=== PATIENT | male | born 1965 | race Caucasian/White ===

== ENCOUNTER 2016-08-29 14:05 | Inpatient (IN) | payer OTHER, BC ==
[2016-08-29] VITALS (10 sets, daily range): BP systolic 116–198; BP diastolic 11–110; PULSE 102–152; RESP 20–24; TEMP 97.8–98.4; O2SAT 95–99
[~2016-08-29] VITALS: Ht 182.9 cm; Wt 97.4 kg
[~2016-08-29 14:05] MED LIST: AZIT250T3 PO; CARA1TAB6 PO; DILT360C12 PO; FLUC200T2 PO; IPRASOL NEB; LEVA1.257 NEB; LIPI20TA PO; MONT10TA2 PO; OMEP40CA2 PO; PRED10 PO; PRED20 PO; PROM6.256 PO; PROT40TA PO; SYMB160A INH; WARF-58 PO
[2016-08-29] MEDS ORDERED: RESP: ALBUTEROL 2.5 MG/3 ML NEB (PRN) ONE (14:20)
--- NOTE | 2016-08-29 14:27 | PD ---
HPI . Respiratory distress Chief Complaint: Respiratory Symptoms Time Seen by Provider: 14:21 Travel History International Travel<30 days: No Contact w/Intl Traveler<30days: No History of Present Illness HPI Patient presents in acute respiratory distress. 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 He has a history of severe asthma. He's been seen in the very recent past for same. He is on steroids currently. He has required intubation in the past. PFSH Past Medical History Hx Anticoagulant Therapy: Yes (COUMADIN ) Arthritis: Yes Asthma: Yes Autoimmune Disease: No Anxiety: Yes (XANAX) Depression: Yes (ON PAXIL) Heart Rhythm Problems: Yes (TACHY) Cancer: No Cardiovascular Problems: Yes (PULMONARY EMBOLI ) High Cholesterol: Yes (ON LIPITOR) Chest Pain: Yes (DUE TO PE, PNEUMONIA) Congestive Heart Failure: No COPD: Yes Cerebrovascular Accident: No Diabetes: No Diminished Hearing: No Deep Vein Thrombosis: Yes (DECEMBER 2015: RIGHT LEG WITH PULMONARY EMBOLISM) Endocrine: No Gastrointestinal Disorders: No GERD: Yes Genitourinary: No Hiatal Hernia: No Hypertension: Yes (New HTN since last admit per pt/not documented) Immune Disorder: No Implanted Vascular Access Dvce: No Kidney Stones: No Musculoskeletal: No Neurologic: No Psychiatric: No Reproductive: No Respiratory: Yes (COPD, ASTHMA ) Pneumonia: Yes (NOVEMBER 2015) Renal Failure: No Sleep Apnea: No Thyroid Disease: No Ulcer: No Past Surgical History Abdominal Surgery: No Appendectomy: Yes Cardiac Surgery: No Endocrine Surgery: No Eye Surgery: No Genitourinary Surgery: Yes (apendectomy) Gynecologic Surgery: No Oral Surgery: Yes Pacemaker: No Thoracic Surgery: No Tonsillectomy: Yes Other Surgery: Yes Social History Alcohol Use: No Tobacco Use: No Substance Use: No Allergies-Medications (Allergen,Severity, Reaction): Coded Allergies: Tetracycline (Verified Allergy, Severe, throat swells, 08/29/16) Demerol (Verified Allergy, Intermediate, hallucinations, 08/29/16) Reported Meds & Prescriptions Reported Meds & Active Scripts Active Promethazine-Codeine Liq 6.25-10 Mg/5 Ml Syrp 5 Ml PO Q4H PRN Azithromycin 250 Mg Tab 250 Mg PO DIRECTED Take 2 tabs (500 mg) on day 1 then 1 tab daily x 4 days. Prednisone 20 Mg Tab 40 Mg PO DAILY 4 Days Fluconazole 200 Mg Tab 400 Mg PO DAILY Warfarin 3 Mg Tab 3 Mg PO DAILY Reported Lortab (Hydrocodone-Acetaminophen) 7.5-325 Mg Tab 1 Tab PO TID PRN Prednisone 20 Mg Tab 20 Mg PO DAILY Protonix (Pantoprazole Sodium) 40 Mg Tab 40 Mg PO DAILY Duoneb (Ipratropium-Albuterol Neb) 0.5-2.5 Mg/3 Ml Neb 1 Nebule NEB QID PRN Omeprazole 40 Mg Cap 40 Mg PO DAILY Diltiazem CD 24 HR 360 Mg Capcr 360 Mg PO DAILY Symbicort Inh (Budesonide/Formoterol Fumarate) 160-4.5 Mcg/Act Aero 2 Puff INH Q12HR Singulair (Montelukast Sodium) 10 Mg Tab 10 Mg PO HS Lipitor (Atorvastatin Calcium) 20 Mg Tab 20 Mg PO HS Carafate (Sucralfate) 1 Gm Tab 1 Gm PO TID On empty stomach Levalbuterol Neb (Levalbuterol HCl) 1.25 Mg/3 Ml Neb 1.25 Mg NEB BID PRN Review of Systems Except as stated in HPI: all other systems reviewed are Neg General / Constitutional: No: Fever, Chills HENT: Positive: Congestion Respiratory: Positive: Cough, Shortness of Breath Physical Exam Narrative GENERAL: This patient is in obvious respiratory distress with audible wheezing. SKIN: Warm and dry. HEAD: Atraumatic. Normocephalic. EYES: Pupils equal and round. ENT: No nasal bleeding or discharge. Mucous membranes pink and moist. NECK: Trachea midline. CARDIOVASCULAR: Regular rhythm. Rapid rate at about 170. RESPIRATORY: This patient is in respiratory distress. Diffuse expiratory wheezing. GASTROINTESTINAL: Abdomen soft, non-tender, nondistended. MUSCULOSKELETAL: No obvious deformities. No edema. NEUROLOGICAL: Awake and alert. No obvious cranial nerve deficits. Motor grossly within normal limits. Normal speech. PSYCHIATRIC: Appropriate mood and affect; appropriately anxious. Data Data Last Documented VS Vital Signs Date Time Temp Pulse Resp B/P Pulse Ox O2 Delivery O2 Flow Rate FiO2 08/29/16 17:07 113 20 146/82 97 Nasal Cannula 3 08/29/16 14:30 40 08/29/16 14:08 97.8 Orders Electrocardiogram (08/29/16 ) Albuterol Neb (Albuterol Neb) (08/29/16 14:20) Complete Blood Count With Diff (08/29/16 14:20) Comprehensive Metabolic Panel (08/29/16 14:20) Chest, Single Ap (08/29/16 14:20) Ecg Monitoring (08/29/16 14:20) Iv Access Insert/Monitor (08/29/16 14:20) Oximetry (08/29/16 14:20) Oxygen Administration (08/29/16 14:20) Methylprednisolone So Succ Inj (Solumedr (08/29/16 14:30) Albuterol-Ipratropium Neb (Duoneb Neb) (08/29/16 14:30) Sodium Chloride 0.9% Flush (Ns Flush) (08/29/16 14:30) Magnesium Sulfate 1 Gm Premix (Magnesium (08/29/16 14:30) B-Type Natriuretic Peptide (08/29/16 14:20) Magnesium (Mg) (08/29/16 14:20) Ckmb (Isoenzyme) Profile (08/29/16 14:20) Troponin I (08/29/16 14:20) Prothrombin Time / Inr (Pt) (08/29/16 14:28) D-Dimer (08/29/16 14:28) Lorazepam Inj (Ativan Inj) (08/29/16 14:45) Ct Pulmonary Angiogram (08/29/16 16:09) Iohexol 350 Inj (Omnipaque 350 Inj) (08/29/16 16:54) Labs Laboratory Tests Test 08/29/16 08/29/16 14:25 14:40 White Blood Count 13.2 TH/MM3 Red Blood Count 4.54 MIL/MM3 Hemoglobin 10.0 GM/DL Hematocrit 33.1 % Mean Corpuscular Volume 72.8 FL Mean Corpuscular Hemoglobin 22.1 PG Mean Corpuscular Hemoglobin 30.3 % Concent Red Cell Distribution Width 20.6 % Platelet Count 558 TH/MM3 Mean Platelet Volume 7.2 FL Neutrophils (%) (Auto) 80.2 % Lymphocytes (%) (Auto) 12.2 % Monocytes (%) (Auto) 6.5 % Eosinophils (%) (Auto) 0.6 % Basophils (%) (Auto) 0.5 % Neutrophils # (Auto) 10.6 TH/MM3 Lymphocytes # (Auto) 1.6 TH/MM3 Monocytes # (Auto) 0.9 TH/MM3 Eosinophils # (Auto) 0.1 TH/MM3 Basophils # (Auto) 0.1 TH/MM3 CBC Comment AUTO DIFF Differential Comment AUTO DIFF CONFIRMED Platelet Estimate HIGH Platelet Morphology Comment NORMAL Ovalocytes 2+ Sodium Level 141 MEQ/L Potassium Level 3.9 MEQ/L Chloride Level 104 MEQ/L Carbon Dioxide Level 26.2 MEQ/L Anion Gap 11 MEQ/L Blood Urea Nitrogen 24 MG/DL Creatinine 1.08 MG/DL Estimat Glomerular Filtration 72 ML/MIN Rate Random Glucose 112 MG/DL Calcium Level 9.2 MG/DL Magnesium Level 1.9 MG/DL Total Bilirubin 0.2 MG/DL Aspartate Amino Transf 60 U/L (AST/SGOT) Alanine Aminotransferase 92 U/L (ALT/SGPT) Alkaline Phosphatase 162 U/L Total Creatine Kinase 99 U/L Troponin I LESS THAN 0.02 NG/ML B-Type Natriuretic Peptide 3 PG/ML Total Protein 7.4 GM/DL Albumin 4.2 GM/DL Prothrombin Time 69.8 SEC Prothromb Time International 5.8 RATIO Ratio D-Dimer Quantitative (PE/DVT) 1.25 MG/L FEU MDM Medical Decision Making Medical Screen Exam Complete: Yes Emergency Medical Condition: Yes Differential Diagnosis Differential diagnosis of dyspnea includes but is not limited to congestive heart failure, pneumonia, wheezing, pneumothorax, pulmonary embolism Narrative Course Patient presents in respiratory distress with asthma. He is receiving stacked nebs. He will receive IV steroids. He is being placed on BiPAP. 3:10 PM ABG was obtained that is probably venous. Clinically, the patient is much improved. I will not re-stick him for an ABG at this time. He is on BiPAP and prefers to stay on BiPAP at least temporarily. 3:42 PM Chest x-ray is negative to the radiologist's interpretation. Chest x-ray was independently viewed by me. CBC has a white count of 13.2 (he is on steroids) His H&H is 10 and 33. Cardiac enzymes are negative. BNP is negative. D-dimer is currently pending. Patient's INR is 5.8. D-dimer is 1.25. 5:[address] for PE is negative. Critical Care Narrative Aggregate critical care time was 60 minutes. Time to perform other separately billable procedures was not included in the critical care time. My time did not include minutes spent treating any other patients simultaneously or on activities that did not directly contribute to the patient's treatment. The services I provided to this patient were to treat and/or prevent clinically significant deterioration that could result in: Respiratory failure, respiratory arrest, I provided critical care services requiring my management, as noted below: Chart data review, documentation time, medication orders and management, vital sign assessments/reviewing monitor data, ordering and reviewing lab tests, ordering and interpreting/reviewing x-rays and diagnostic studies, care of the patient and discussion of the patient with the admitting physicians. Diagnosis Primary Impression: Acute asthma exacerbation Qualified Code: J45.51 - Severe persistent asthma with acute exacerbation Additional Impressions: Elevated d-dimer Warfarin-induced coagulopathy Admitting Information Admitting Physician Requests: Admit Condition: Stable Jacquie Uribe MD Aug 29, 2016 14:27
[2016-08-29] MEDS ORDERED: SODIUM CHLORIDE 0.9% FLUSH 5 ML FLUSH IVF PRN (14:30)
[2016-08-29] MEDS ORDERED: MAGNESIUM SULFATE 1 GM PREMIX 100 ML IV ONE (14:30)
[2016-08-29] MEDS ORDERED: methylPREDNISolone SOD SUCC 125 MG/2 ML VIAL IVP ONE (14:30)
[2016-08-29] MEDS ORDERED: LORazepam 2 MG/ML VIAL IV PUSH ONE (14:45)
[2016-08-29 14:50] LABS: AUTOMATED NEUTROPHIL # 10.6 TH/MM3 (1.8-7.7); BASOPHIL # 0.1 TH/MM3 (0-0.2); BASOPHIL % 0.5 % (0.0-2.0); EOSINOPHIL # 0.1 TH/MM3 (0-0.4); EOSINOPHIL % 0.6 % (0.0-4.0); HEMATOCRIT 33.1 % (39.0-51.0); LYMPH % 12.2 % (9.0-44.0); LYMPHOCYTE # 1.6 TH/MM3 (1.0-4.8); MEAN CELL VOLUME 72.8 FL (80.0-100.0); MEAN CORPUSCULAR HEMOGLOBIN 22.1 PG (27.0-34.0); MEAN CORPUSCULAR HGB CONC 30.3 % (32.0-36.0); MONO % 6.5 % (0.0-8.0); NEUT % 80.2 % (16.0-70.0); PLATELET COUNT 558 TH/MM3 (150-450); RED BLOOD COUNT 4.54 MIL/MM3 (4.50-5.90); RED CELL DISTRIBUTION WIDTH 20.6 % (11.6-17.2); WHITE BLOOD COUNT 13.2 TH/MM3 (4.0-11.0)
[2016-08-29 14:54] LABS: HEMO FLAGS AUTO DIFF
--- NOTE | 2016-08-29 14:58 | RADRPT ---
EXAM DATE/TIME: 08/29/2016 14:42 [facility] COMPARISON: CHEST SINGLE AP, August 27, 2016, 15:45. INDICATIONS : Wheezing short of breath. MEDICAL HISTORY : Chronic obstructive pulmonary disease. asthma SURGICAL HISTORY : Hip surgery. ENCOUNTER: Initial ACUITY: 1 day PAIN SCORE: 0/10 LOCATION: Bilateral chest FINDINGS: A single view of the chest demonstrates the lungs to be symmetrically aerated without evidence of mas s, infiltrate or effusion. The cardiomediastinal contours are unremarkable. Osseous structures are intact. CONCLUSION: No acute disease. Elías Hull MD FACR on August 29, 2016 at 14:56 Board Certified Radiologist. This report was verified electronically.
[2016-08-29 15:08] LABS: ANION GAP 11 MEQ/L (5-15); AST (GOT) 60 U/L (15-37); BICARBONATE 26.2 MEQ/L (21.0-32.0); BLOOD UREA NITROGEN 24 MG/DL (7-18); CHLORIDE 104 MEQ/L (98-107); GLOMERULAR FILTRATION RATE 72 ML/MIN (>89); MAGNESIUM 1.9 MG/DL (1.5-2.5); POTASSIUM 3.9 MEQ/L (3.5-5.1); SODIUM (NA) 141 MEQ/L (136-145)
[2016-08-29] MEDS: RESP: ALBUTEROL 2.5 MG/IPRATROPIUM 0.5 MG NEB (SCH) INH ×2 (15:11→15:12)
[2016-08-29 15:14] LABS: ALKALINE PHOSPHATASE 162 U/L (45-117); ALT (GPT) 92 U/L (12-78); CREATINE KINASE 99 U/L (39-308); TOTAL BILIRUBIN ADULT 0.2 MG/DL (0.2-1.0)
[2016-08-29 15:42] LABS: OVALOCYTES 2+ (NORMAL); PLATELET ESTIMATE SMEAR HIGH (NORMAL); PLATELET MORPHOLOGY NORMAL (NORMAL); SCAN/DIFF AUTO DIFF CONFIRMED
[2016-08-29 16:01] LABS: INTERNATIONAL NORMALIZED RATIO 5.8 RATIO; PROTHROMBIN TIME - PATIENT 69.8 SEC (9.8-11.6)
[2016-08-29] MEDS ORDERED: IOHEXOL 350 MG/ML 10 ML VIAL (for RAD DIAG) IV ONE (16:54)
--- NOTE | 2016-08-29 17:05 | RADRPT ---
EXAM DATE/TIME: 08/29/2016 16:50 [facility] COMPARISON: CT PULMONARY ANGIOGRAM, March 26, 2016, 12:33. INDICATIONS : Shortness of breath. History of PE. IV CONTRAST: 89 cc Omnipaque 350 (iohexol) IV RADIATION DOSE: 23.29 CTDIvol (mGy) MEDICAL HISTORY : Deep venous thrombosis. Hypertension. Chronic obstructive pulmonary disease. SURGICAL HISTORY : Appendectomy. Bilateral hip replacement. ENCOUNTER: Initial ACUITY: 1 day PAIN SCALE: 5/10 LOCATION: chest TECHNIQUE: Volumetric scanning of the chest was performed using a pulmonary embolism protocol MIP images were re constructed. Using automated exposure control and adjustment of the mA and/or kV according to patien t size, radiation dose was kept as low as reasonably achievable to obtain optimal diagnostic quality images. FINDINGS: PULMONARY ARTERIES: No filling defects are seen in the pulmonary arteries through the segmental level. LUNGS: Minimal bibasilar atelectasis is noted. There is no consolidation or pneumothorax . No concerning pu lmonary nodule is visualized. PLEURAE: There is no pleural thickening or pleural effusion. MEDIASTINUM: There is good visualization of the great vessels of the middle mediastinum. No evidence of mediastin al or hilar adenopathy/mass. The heart is enlarged. Coronary artery calcifications are noted. MUSCULOSKELETAL: Within normal limits for patient age. MISCELLANEOUS: The visualized upper abdominal organs demonstrate no acute abnormality. CONCLUSION: No evidence of pulmonary embolism. Minimal bibasilar atelectasis. Cardiomegaly and co ronary artery calcifications. Samuel King MD on August 29, 2016 at 17:00 Board Certified Radiologist. This report was verified electronically.
[2016-08-29] MEDS ORDERED: PRED20 PO (17:07)
[2016-08-29] MEDS ORDERED: HYDR-3534 PO (17:11)
[2016-08-29] MEDS ORDERED: cefTRIAXone INJ 2,000 MG in SODIUM CHLORIDE 0.9% INJ 100 ML IV ONE (17:30)
[2016-08-29] MEDS ORDERED: ACETAMINOPHEN 325 MG TAB PO PRN (18:30)
[2016-08-29] MEDS ORDERED: RESP: ALBUTEROL 2.5 MG/3 ML NEB (PRN) NEB ×2 (18:30→19:13)
[2016-08-29] MEDS ORDERED: NALOXONE HCL 0.4 MG/ML AMP IV PRN (18:30)
[2016-08-29] MEDS: SODIUM CHLOR 0.9% 1000 ML INJ 1,000 ML IV SCH (19:41)
[2016-08-29] MEDS: RESP: ALBUTEROL 2.5 MG/IPRATROPIUM 0.5 MG NEB (PRN) NEB (19:47)
[2016-08-29] MEDS ORDERED: ENOXAPARIN SODIUM 40 MG/0.4 ML SYRINGE SQ SCH (20:00)
--- NOTE | 2016-08-29 20:12 | MH ---
cc: MIRI GODOY DATE OF ADMISSION: 08/29/2016 ADMITTING DOCTOR: Dr. Miri Godoy. PRIMARY CARE DOCTOR: Dr. Myron Woodward. REASON FOR ADMISSION: Shortness of breath, respiratory symptoms. HISTORY OF PRESENT ILLNESS: The patient is very pleasant 51-year-old male with a past medical history of DVT and pulmonary embolism in the past and also has a history of severe asthma, anxiety, depression, tachycardia, hyperlipidemia, COPD, gastroesophageal reflux disease (GERD), appendectomy in the past. Also has a history of arthritis. The patient came to the emergency room from the psychology assistant' s office IMPRESSION Tachycardia, hyperlipidemia, COPD and gastroesophageal reflux disease. The history is taken on the patient. The patient's spouse is at the bedside. The patient has on and off shortness of breath. He went to his primary psychology assistant, Dr. Hernandez, today. Dr. Hernandez examined him and told him to come to the emergency room because he was not breathing very well. By the time he reached the emergency room, he was very short of breath and wheezing. He was seen by the emergency room physician and put on a BiPAP machine initially and given some breathing treatments. After some breathing treatments, he was improving and he was taken off the BiPAP and now is on nasal cannula. The patient is still having wheezing but he is breathing a lot better. He has had warmth feeling at home. He had some questionable fever. There was no nausea or vomiting. There was no chest pain. There is no dizziness. He has some headache. The patient denies any diarrhea. There is no constipation. The patient denies any genitourinary symptoms. In the emergency room because of his condition and because he was initially on BiPAP, he was recommended for admission. PAST MEDICAL HISTORY: As described above. MEDICATIONS: Reviewed. Please see the MAR. ALLERGIES: 1. TETRACYCLINE. 2. DEMEROL. REVIEW OF SYSTEMS: As described above in the history of present illness and negative for ten systems. SOCIAL HISTORY: The patient does not smoke, drink or do any drugs. FAMILY HISTORY: Noncontributory. PHYSICAL EXAMINATION: GENERAL: The patient is alert and oriented x3, well-built, well-nourished and lying on the bed with nasal cannula oxygen. VITAL SIGNS: The vitals show the patient is afebrile, pulse is 100 to 100-teens regular. Respiratory rate is 20. At one point when he came in, it was 24 to 26 as per the emergency room physician. Blood pressure 146/82, pulse is 99% now on three liters. Initially he was on a BiPAP and then 40%. HEAD, EYES, EARS, NOSE, THROAT: Head is normocephalic and atraumatic. Eyes - negative conjunctival icterus. Mouth unremarkable. NECK: The neck is supple. Central trachea. CHEST: Some decreased air entry bibasilarly with some scattered expiratory wheezing. CARDIOVASCULAR: S1 and S2 audible. I do not hear any S3 gallop. GASTROINTESTINAL: Abdomen soft and nontender. No organomegaly. Positive bowel sounds. MUSCULOSKELETAL: Extremities have no cyanosis or pedal edema appreciated. CENTRAL NERVOUS SYSTEM: Alert and oriented and moving all his extremities. SKIN: Warm and dry. There is a surgical scar with a Steri-Strip on the right hip area. There is no swelling noted. No discharge noted on the exposed area. PSYCHIATRIC: Appropriate mood and affect. INVESTIGATIONS: White blood cell count 8.2, hemoglobin 10, hematocrit 33.1, platelet count 558,000. BUN 24, creatinine 1.08, random glucose 112, AST 60, ALT 92, alkaline phosphatase 152. Troponin less than 0.02. PT 69.8, INR 5.8, D dimer is 1.25. IMAGING STUDIES: Chest x-ray was done which showed no acute disease. CT angiography was done which shows no evidence of PE. Minimal basilar atelectasis, cardiomegaly and coronary artery calcifications. ASSESSMENT: 1. Acute eczema / COPD exacerbation with respiratory ____ on admission. Hypoxia / respiratory insufficiency / failure on admission. 2. Coumadin toxicity. 3. Recent right hip surgery with infection now on medication, Diflucan. 4. Tachycardia. 5. Hypertension. 6. History of depression and anxiety. 7. History of DVT and PE. 8. Arthritis. 9. History of hyperlipidemia. 10. Gastroesophageal reflux disease (GERD). PLAN: 1. The patient admitted to the floor. 2. Continue oxygen and keep oxygen saturation above 92%. 3. IV steroid 4. IV antibiotic. 5. Pulmonary consult. 6. Breathing treatments p.r.n. basis. 7. Keep on home medications including Cardizem as appropriate. 8. Monitor heart rate. 9. Proton pump inhibitor for GI prophylaxis. 10.For coumadin toxicity we will monitor his PT and INR. 11. Continue Diflucan. 12. Monitor liver function tests as the patient has altered liver function tests. Further recommendations will follow as the patient progresses. Discussed with the patient and spouse. CONDITION: Guarded. Cristianed MD CELIO Godoy/LILIA /7:31 PM /7:49 PM
[2016-08-29] MEDS: BUDESONIDE-FORMOTEROL 160/4.5 MCG INHALER INH SCH (21:00)
[2016-08-29] MEDS: PROMETHAZINE/CODEINE 6.25 MG/10 MG/5 ML CUP PO PRN (21:18)
[2016-08-29] MEDS: SODIUM CHLORIDE 0.9% FLUSH 5 ML FLUSH FLUSH SCH (21:39)
[2016-08-29] MEDS: SODIUM CHLORIDE 0.9% FLUSH 5 ML FLUSH FLUSH PRN (22:54)
[2016-08-29] MEDS: methylPREDNISolone SOD SUCC 40 MG/1 ML VIAL IV PUSH SCH (22:54)
[2016-08-29] MEDS: ATORVASTATIN 20 MG TAB PO SCH (22:55)
[2016-08-29] MEDS: MONTELUKAST SODIUM 10 MG TAB PO SCH (22:56)
[2016-08-29] MEDS: ACETAMINOPHEN/HYDROcodone 325 MG/7.5 MG TAB PO PRN (23:36)
[2016-08-30] VITALS (18 sets, daily range): BP systolic 123–161; BP diastolic 78–98; PULSE 103–136; RESP 15–28; TEMP 96.1–98.4; O2SAT 93–98
[2016-08-30] MEDS: RESP: ALBUTEROL 2.5 MG/IPRATROPIUM 0.5 MG NEB (PRN) NEB (01:53)
[2016-08-30] MEDS ORDERED: LORazepam 2 MG/ML VIAL IV SCH (04:00)
[2016-08-30] MEDS: RESP: LEVALBUTEROL HYDROCHLORIDE 1.25 MG/3 ML NEB (SCH) NEB ×6 (04:09→22:30)
[2016-08-30] MEDS: SODIUM CHLORIDE 0.9% FLUSH 5 ML FLUSH FLUSH PRN (04:13)
[2016-08-30] MEDS: methylPREDNISolone SOD SUCC 40 MG/1 ML VIAL IV PUSH SCH ×3 (04:22→20:15)
[2016-08-30] MEDS: MAGNESIUM SULFATE 1 GM PREMIX 100 ML IV SCH ×2 (04:57→06:02)
[2016-08-30] MEDS ORDERED: AZITHROMYCIN INJ 500 MG in SODIUM CHLOR 0.9% 250 ML INJ 250 ML IV ONE (05:00)
[2016-08-30] MEDS ORDERED: RESP: ALBUTEROL 2.5MG/0.5ML CONTINUOUS NEB 12-PACK NEB SCH (05:00)
--- NOTE | 2016-08-30 05:10 | PD.CONS ---
HPI Service Critical Care Medicine Consult Requested By Dr. Diaz Reason for Consult respiratory distress Primary Care Physician Myron Woodward MD History of Present Illness This is a 51yM with history of asthma, anxiety, GERD, DVT, PE who presented yesterday from pulmonary clinic with worsening dyspnea and found to have an asthma exacerbation. He was initially on BiPAP in the emergency department and was transitioned to VT to the floor. I evaluated the patient as part of a [facility] which was called overnight for respiratory distress. The patient is on BiPAP on my evaluation with spo2 99%. He does endorse significant shortness of breath which he feels is worse than on admission. he denied fevers, chills, chest pain. the remainder of the HPI is difficult to obtain secondary to his respiratory distress and clinical condition. when I had evaluated the patient, he had already received 2 DuoNeb treatments and iv solumedrol. Critical Care Medicine is consulted to evaluate and manage his respiratory distress. Review of Systems ROS Limitations: Clinical Condition (respiratory distress) Past Family Social History Allergies: Coded Allergies: Tetracycline (Verified Allergy, Severe, throat swells, 08/29/16) Demerol (Verified Allergy, Intermediate, hallucinations, 08/29/16) Past Medical History Asthma DVT PE chronic anticoagulation on coumadin therapy Depression anxiety tachycardia hyperlipidemia COPD GERD arthritis. Past Surgical History appendectomy Reported Medications Symbicort Prednisone 40mg daily Coumadin 3mg daily Fluconazole 400mg daily Diltiazem 360mg daily Atorvastatin 20mg daily Singulair 10mg daily Azithromycin 250mg daily Omeprazole daily Active Ordered Medications See MAR Family History reviewed and found to be noncontributory to his acute illness. Social History denies tob, etoh, doa. Physical Exam Vital Signs Vital Signs Date Time Temp Pulse Resp B/P Pulse Ox O2 Delivery O2 Flow Rate FiO2 08/30/16 00:32 19 08/30/16 00:00 96.1 115 22 123/83 98 08/29/16 20:50 98.4 109 20 116/73 2 Nasal Cannula 08/29/16 20:02 98 Nasal Cannula 2.00 08/29/16 19:20 98.4 102 20 130/71 97 Nasal Cannula 2 08/29/16 18:02 110 20 146/82 99 Nasal Cannula 3 08/29/16 17:07 113 20 146/82 97 Nasal Cannula 3 08/29/16 16:29 117 20 143/92 97 Nasal Cannula 3 08/29/16 15:12 126 20 147/96 97 BiPAP 08/29/16 14:30 98 40 08/29/16 14:27 100 BiPAP 08/29/16 14:27 99 BiPAP 08/29/16 14:23 148 22 BiPAP 08/29/16 14:08 97.8 152 24 198/110 95 Physical Exam Gen: middle aged male, in severe respiratory distress. sitting in bed. HEENT: NCAT. perrl. mucous membranes moist Neck: BiPAP in place. trachea midline. no jvd. Chest: significant audible expiratory wheezes which are heard from the doorway. decreased air entry throughout all lung fair but worse on the right. CV: tachycardic rate, regular rhythm. no appreciable murmurs. Abd: obese, soft, nontender, nondistended. no guarding. Extr: no peripheral edema. 2+ distal pulses. Neuro: RASS 0. FC x 4. Laboratory Laboratory Tests Test 08/29/16 08/29/16 14:25 14:40 White Blood Count 13.2 Red Blood Count 4.54 Hemoglobin 10.0 Hematocrit 33.1 Mean Corpuscular Volume 72.8 Mean Corpuscular Hemoglobin 22.1 Mean Corpuscular Hemoglobin 30.3 Concent Red Cell Distribution Width 20.6 Platelet Count 558 Mean Platelet Volume 7.2 Neutrophils (%) (Auto) 80.2 Lymphocytes (%) (Auto) 12.2 Monocytes (%) (Auto) 6.5 Eosinophils (%) (Auto) 0.6 Basophils (%) (Auto) 0.5 Neutrophils # (Auto) 10.6 Lymphocytes # (Auto) 1.6 Monocytes # (Auto) 0.9 Eosinophils # (Auto) 0.1 Basophils # (Auto) 0.1 CBC Comment AUTO DIFF Differential Comment AUTO DIFF CONFIRMED Platelet Estimate HIGH Platelet Morphology Comment NORMAL Ovalocytes 2+ Sodium Level 141 Potassium Level 3.9 Chloride Level 104 Carbon Dioxide Level 26.2 Anion Gap 11 Blood Urea Nitrogen 24 Creatinine 1.08 Estimat Glomerular Filtration 72 Rate Random Glucose 112 Calcium Level 9.2 Magnesium Level 1.9 Total Bilirubin 0.2 Aspartate Amino Transf 60 (AST/SGOT) Alanine Aminotransferase 92 (ALT/SGPT) Alkaline Phosphatase 162 Total Creatine Kinase 99 Troponin I LESS THAN 0.02 B-Type Natriuretic Peptide 3 Total Protein 7.4 Albumin 4.2 Prothrombin Time 69.8 Prothromb Time International 5.8 Ratio D-Dimer Quantitative (PE/DVT) 1.25 Result Diagram: 08/29/16 1425 08/29/16 1425 Assessment and Plan Assessment and Plan Assessment: 51yM with h/o asthma who presents with asthma exacerbation and now acute respiratory distress. This is most likely secondary to his asthma exacerbation. My clinical evaluation is consistent with his worsening pulmonary status and with his severe respiratory distress, I am concerned that he will tire out and he has a history of requiring intubation and mechanical ventilation for asthma exacerbations. We will emergently transfer him to the ICU. He is critically ill. Active Problems: Asthma Exacerbation Acute severe respiratory distress Acute hypoxic and hypercarbic respiratory failure Plan: -- Mg sulfate 2gm iv x 1 -- continuous inhaled albuterol nebulizer treatment -- Continue Rocephin 1gm iv q12h -- continue methylpred 40mg iv q8h. -- Add azithromycin 500mg iv x 1, then 250mg iv q24h x 5 days. -- may need epinephrine infusion if his respiratory status does not improve. -- continue ativan 0.5mg iv as needed for anxiety -- continue BiPAP -- transfer to ICU -- could also consider low-dose ketamine for anxiety and bronchodilation. Critical Care time: 39 minutes, exclusive of procedures. Code Status Full Code Discussed Condition With bedside RN, Erasto Healy RN, MD Aug 30, 2016 05:10
[2016-08-30] MEDS: RESP: LEVALBUTEROL HYDROCHLORIDE 1.25 MG/3 ML NEB (PRN) NEB ×2 (05:38→06:14)
[2016-08-30] MEDS ORDERED: RESP: LEVALBUTEROL HYDROCHLORIDE 1.25 MG/3 ML NEB (SCH) NEB ×2 (06:00→06:15)
[2016-08-30 07:18] LABS: BLOOD GAS BASE EXCESS -3.3 mmol/L (-2-2); BLOOD GAS HCO3 19 mmol/L (22-26); BLOOD GAS METHEMOGLOBIN 1.4 % (0-2); BLOOD GAS O2 HGB SATURATION 96 % (90-100); BLOOD GAS PCO2 23 mmHg (38-42); BLOOD GAS PO2 107 mmHg (61-120); BLOOD GAS TOTAL HGB 8.8 G/DL (12.0-16.0); TEMP CORR TO 98.6
[2016-08-30 07:19] LABS: DRAW SITE LT RADIAL; FIO2 25 %; NUMBER OF ARTERIAL PUNCTURES 1; OXYGEN DEVICE BIPAP; STAT YES; ULNAR PULSE PRESENT
[2016-08-30] MEDS: LORazepam 0.5 MG TAB PO SCH ×2 (07:25→20:15)
--- NOTE | 2016-08-30 07:41 | RADRPT ---
EXAM DATE/TIME: 08/30/2016 07:20 [facility] COMPARISON: CHEST SINGLE AP, August 29, 2016, 14:42. INDICATIONS : Short of breath MEDICAL HISTORY : Chronic obstructive pulmonary disease. SURGICAL HISTORY : None. ENCOUNTER: Subsequent ACUITY: 3 days PAIN SCORE: 0/10 LOCATION: Bilateral chest FINDINGS: A single view of the chest demonstrates minimal left basilar density. Right lung is clear. Heart bord naren enlarged. The cardiomediastinal contours are unremarkable. Osseous structures are intact. CONCLUSION: 1. Minimal left basilar density likely subsegmental atelectasis. Davion Carranza MD on August 30, 2016 at 7:39 Board Certified Radiologist. This report was verified electronically.
[2016-08-30 08:17] LABS: AUTOMATED NEUTROPHIL # 9.1 TH/MM3 (1.8-7.7); BASOPHIL % 0.2 % (0.0-2.0); HEMATOCRIT 27.1 % (39.0-51.0); LYMPH % 5.4 % (9.0-44.0); LYMPHOCYTE # 0.5 TH/MM3 (1.0-4.8); MEAN CELL VOLUME 72.3 FL (80.0-100.0); MEAN CORPUSCULAR HEMOGLOBIN 22.7 PG (27.0-34.0); MEAN CORPUSCULAR HGB CONC 31.5 % (32.0-36.0); MONO % 2.1 % (0.0-8.0); NEUT % 92.3 % (16.0-70.0); PLATELET COUNT 452 TH/MM3 (150-450); RED BLOOD COUNT 3.75 MIL/MM3 (4.50-5.90); RED CELL DISTRIBUTION WIDTH 20.4 % (11.6-17.2); WHITE BLOOD COUNT 9.9 TH/MM3 (4.0-11.0)
[2016-08-30 08:20] LABS: HEMO FLAGS AUTO DIFF
[2016-08-30 08:23] LABS: INTERNATIONAL NORMALIZED RATIO 5.5 RATIO; PROTHROMBIN TIME - PATIENT 65.6 SEC (9.8-11.6)
--- NOTE | 2016-08-30 08:50 | MB ---
cc: MARY HERNANDEZ M.D. DATE OF CONSULTATION: 08/30/2016 REASON FOR CONSULTATION Exacerbation of bronchial asthma. HISTORY OF PRESENT ILLNESS Mr. Link is a 51-year-old male with known history of bronchial asthma of severe degree requiring multiple hospitalizations, intubation and mechanical ventilation in the past. He was recently hospitalized for a septic right hip requiring arthroplasty. The patient presents to the emergency room with exacerbation of his bronchial asthma. He was initially admitted to a medical floor, however, his bronchospasm worsened and he was transferred to the intensive medical care unit on BiPAP therapy. At present his oxygen saturation is 100% on BiPAP therapy. Arterial blood gas with adequate oxygenation and evidence of hyperventilation. He denies a history of fever, chills, hemoptysis, TB or industrial exposure. PAST MEDICAL HISTORY 1. Bronchial asthma. 2. DVT and pulmonary embolism. 3. Anxiety and depression. 4. Hyperlipidemia. 5. Acid reflux disease. 6. Septic arthritis right hip. PAST SURGICAL HISTORY Previous appendectomy. ALLERGIES 1. TETRACYCLINE. 2. DEMEROL. MEDICATIONS Medications at home include: 1. Symbicort twice daily. 2. Prednisone; was gradually being reduced to 5 mg, however, the last 4-5 days was increased to 20 mg daily. 3. Coumadin. 4. Fluconazole. 5. Diltiazem. 6. Atorvastatin. 7. Zithromax. 8. Omeprazole. FAMILY HISTORY Noncontributory. REVIEW OF SYSTEMS A 12-point review of systems as per HPI and past history, otherwise negative. PHYSICAL EXAMINATION GENERAL: On exam the patient is alert. VITAL SIGNS: Temperature 96.5, pulse 130, respirations 18, blood pressure 150/90. Oxygen saturation 100% on 0.25 inspired oxygen fraction. HEENT: Exam unremarkable. Eyes without icterus. NECK: Without adenopathy or thyroid enlargement. Central trachea. CHEST: No dullness to percussion. Scattered end-expiratory wheeze on auscultation. CARDIAC: PMI distant. S1, S2 audible. No murmur or rub. ABDOMEN: Lax. Bowel sounds audible. EXTREMITIES: No clubbing, cyanosis or edema. LABORATORY DATA Arterial blood gas: pH 7.53, PCO2 23, PO2 107 on BiPAP 12/5. Sodium 141, potassium 3.9, BUN 24, creatinine 1.0. INR 5.8. White count 13,000, hemoglobin 10. IMAGING DATA CT angiogram: No evidence of pneumonia. No evidence of pulmonary embolism. IMPRESSION 1. Asthma exacerbation. 2. Hypertension. 3. Status post DVT/PE. 4. Status post septic arthritis, right hip. 5. Anxiety/depression. PLAN The patient will be maintained on oxygen therapy as needed. Bronchodilator therapy, IV steroid therapy will be given. His course will be followed closely in the intensive care setting and depending on progress will proceed further. I do thank you for asking me to partake in Mr. Link's care. Mary Hernandez MD WWW/BLAYNE /8:22 AM /8:35 AM
[2016-08-30 08:55] LABS: ALKALINE PHOSPHATASE 138 U/L (45-117); ALT (GPT) 76 U/L (12-78); ANION GAP 10 MEQ/L (5-15); AST (GOT) 23 U/L (15-37); BICARBONATE 23.8 MEQ/L (21.0-32.0); BLOOD UREA NITROGEN 21 MG/DL (7-18); CHLORIDE 104 MEQ/L (98-107); GLOMERULAR FILTRATION RATE 84 ML/MIN (>89); POTASSIUM 3.4 MEQ/L (3.5-5.1); SODIUM (NA) 138 MEQ/L (136-145); TOTAL BILIRUBIN ADULT 0.2 MG/DL (0.2-1.0)
[2016-08-30 09:20] LABS: ACANTHOCYTES 1+ (NORMAL); OVALOCYTES 1+ (NORMAL)
[2016-08-30 09:23] LABS: SCAN/DIFF AUTO DIFF CONFIRMED
[2016-08-30] MEDS: SUCRALFATE 1 GM TAB PO SCH ×3 (09:23→17:25)
[2016-08-30] MEDS: SODIUM CHLORIDE 0.9% FLUSH 5 ML FLUSH FLUSH SCH ×2 (09:23→20:16)
[2016-08-30] MEDS: FLUCONAZOLE 200 MG TAB PO SCH (09:23)
[2016-08-30] MEDS: DILTIAZEM-CD 180 MG CAP ER PO SCH (09:23)
[2016-08-30] MEDS: PANTOPRAZOLE SOD 40 MG DELAYED RELEASE TAB PO SCH (09:23)
[2016-08-30 09:24] LABS: TEARDROP RBCS 1+ (NORMAL)
[2016-08-30] MEDS: SODIUM CHLOR 0.9% 1000 ML INJ 1,000 ML IV SCH ×2 (11:01→20:17)
--- NOTE | 2016-08-30 12:04 | HHI.PR ---
Subjective Remarks Patient has shortness of breath sounds with wheezing No nausea vomiting No chest pain No diaphoresis No other complaint Review of systems a 12 point system otherwise unremarkable Objective Objective Results - Vital Signs Date Time Temp Pulse Resp B/P Pulse Ox O2 Delivery O2 Flow Rate FiO2 08/30/16 10:00 105 08/30/16 09:33 95 High Flow Nasal Cannula 40.00 30 08/30/16 08:00 98.0 117 15 148/98 95 08/30/16 08:00 117 08/30/16 07:46 93 BiPAP 25 08/30/16 07:42 95 25 08/30/16 06:15 94 25 08/30/16 05:30 120 08/30/16 05:30 98.4 120 28 129/78 94 08/30/16 04:00 96.3 136 17 150/91 97 08/30/16 03:05 98 25 08/30/16 00:32 19 08/30/16 00:00 96.1 115 22 123/83 98 08/29/16 20:50 98.4 109 20 116/73 2 Nasal Cannula 08/29/16 20:02 98 Nasal Cannula 2.00 08/29/16 19:20 98.4 102 20 130/71 97 Nasal Cannula 2 08/29/16 18:02 110 20 146/82 99 Nasal Cannula 3 08/29/16 17:07 113 20 146/82 97 Nasal Cannula 3 08/29/16 16:29 117 20 143/92 97 Nasal Cannula 3 08/29/16 15:12 126 20 147/96 97 BiPAP 08/29/16 14:30 98 40 08/29/16 14:27 100 BiPAP 08/29/16 14:27 99 BiPAP 08/29/16 14:23 148 22 BiPAP 08/29/16 14:08 97.8 152 24 198/110 95 I/O 08/29/16 08/29/16 08/29/16 08/30/16 08/30/16 08/30/16 06:59 14:59 22:59 06:59 14:59 22:59 Intake Total 300 ml Balance 300 ml Intake IV Total 300 ml Result Diagram: 08/30/16 0751 08/30/16 0751 Other Results Laboratory Tests Test 08/29/16 08/29/16 08/30/16 08/30/16 14:25 14:40 05:39 07:08 White Blood Count 13.2 Red Blood Count 4.54 Hemoglobin 10.0 Hematocrit 33.1 Mean Corpuscular Volume 72.8 Mean Corpuscular Hemoglobin 22.1 Mean Corpuscular Hemoglobin 30.3 Concent Red Cell Distribution Width 20.6 Platelet Count 558 Mean Platelet Volume 7.2 Neutrophils (%) (Auto) 80.2 Lymphocytes (%) (Auto) 12.2 Monocytes (%) (Auto) 6.5 Eosinophils (%) (Auto) 0.6 Basophils (%) (Auto) 0.5 Neutrophils # (Auto) 10.6 Lymphocytes # (Auto) 1.6 Monocytes # (Auto) 0.9 Eosinophils # (Auto) 0.1 Basophils # (Auto) 0.1 CBC Comment AUTO DIFF Differential Comment AUTO DIFF CONFIRMED Platelet Estimate HIGH Platelet Morphology Comment NORMAL Ovalocytes 2+ Sodium Level 141 Potassium Level 3.9 Chloride Level 104 Carbon Dioxide Level 26.2 Anion Gap 11 Blood Urea Nitrogen 24 Creatinine 1.08 Estimat Glomerular Filtration 72 Rate Random Glucose 112 Calcium Level 9.2 Magnesium Level 1.9 Total Bilirubin 0.2 Aspartate Amino Transf 60 (AST/SGOT) Alanine Aminotransferase 92 (ALT/SGPT) Alkaline Phosphatase 162 Total Creatine Kinase 99 Troponin I LESS THAN 0.02 B-Type Natriuretic Peptide 3 Total Protein 7.4 Albumin 4.2 Prothrombin Time 69.8 Prothromb Time International 5.8 Ratio D-Dimer Quantitative (PE/DVT) 1.25 Nasal Screen MRSA (PCR) NEGATIVE Blood Gas Puncture Site LT RADIAL Blood Gas Patient Temperature 98.6 Blood Gas HCO3 19 Blood Gas Base Excess -3.3 Blood Gas Oxygen Saturation 96 Arterial Blood pH 7.53 Arterial Blood Partial 23 Pressure CO2 Arterial Blood Partial 107 Pressure O2 Arterial Blood Oxygen Content 12.0 Arterial Blood 2.0 Carboxyhemoglobin Arterial Blood Methemoglobin 1.4 Blood Gas Hemoglobin 8.8 Oxygen Delivery Device BIPAP Blood Gas Ventilator Setting 12/5 Blood Gas Inspired Oxygen 25 Test 08/30/16 07:51 White Blood Count 9.9 Red Blood Count 3.75 Hemoglobin 8.5 Hematocrit 27.1 Mean Corpuscular Volume 72.3 Mean Corpuscular Hemoglobin 22.7 Mean Corpuscular Hemoglobin 31.5 Concent Red Cell Distribution Width 20.4 Platelet Count 452 Mean Platelet Volume 7.2 Neutrophils (%) (Auto) 92.3 Lymphocytes (%) (Auto) 5.4 Monocytes (%) (Auto) 2.1 Eosinophils (%) (Auto) 0.0 Basophils (%) (Auto) 0.2 Neutrophils # (Auto) 9.1 Lymphocytes # (Auto) 0.5 Monocytes # (Auto) 0.2 Eosinophils # (Auto) 0.0 Basophils # (Auto) 0.0 CBC Comment AUTO DIFF Differential Comment AUTO DIFF CONFIRMED Tear Drop Cells 1+ Ovalocytes 1+ Acanthocytes 1+ Prothrombin Time 65.6 Prothromb Time International 5.5 Ratio Sodium Level 138 Potassium Level 3.4 Chloride Level 104 Carbon Dioxide Level 23.8 Anion Gap 10 Blood Urea Nitrogen 21 Creatinine 0.94 Estimat Glomerular Filtration 84 Rate Random Glucose 174 Calcium Level 8.9 Total Bilirubin 0.2 Aspartate Amino Transf 23 (AST/SGOT) Alanine Aminotransferase 76 (ALT/SGPT) Alkaline Phosphatase 138 Total Protein 6.5 Albumin 3.7 Physical Exam Physical Exam GENERAL: The patient is alert and oriented x3, well-built, well-nourished and lying on the bed with nasal cannula oxygen. VITAL SIGNS: Reviewed. On high flow oxygen HEAD, EYES, EARS, NOSE, THROAT: Head is normocephalic and atraumatic. Eyes - negative conjunctival icterus. Mouth unremarkable. NECK: The neck is supple. Central trachea. CHEST: Some decreased air entry bibasilarly with scattered expiratory wheezing. CARDIOVASCULAR: S1 and S2 audible. I do not hear any S3 gallop. GASTROINTESTINAL: Abdomen soft and nontender. No organomegaly. Positive bowel sounds. MUSCULOSKELETAL: Extremities have no cyanosis or pedal edema appreciated. CENTRAL NERVOUS SYSTEM: Alert and oriented and moving all his extremities. SKIN: Warm and dry. There is a surgical scar with a Steri-Strip on the right hip area. There is no swelling noted. No discharge noted on the exposed area. PSYCHIATRIC: Appropriate mood and affect. A/P Assessment and Plan 1. Acute asthma/ COPD exacerbation with respiratory failure/insufficiency on admission. 2. Coumadin toxicity. 3. Recent right hip surgery with infection now on medication, Diflucan. 4. Tachycardia. 5. Hypertension. 6. History of depression and anxiety. 7. History of DVT and PE. 8. Arthritis. 9. History of hyperlipidemia. 10. Gastroesophageal reflux disease (GERD). PLAN: Last night patient was transferred to ICU after BiPAP. Seen in ICU today. Appreciate critical care input and help Continue high flow oxygen as per pulmonary and keep oxygen saturation above 92%. Continue IV steroid Continue IV antibiotic. Appreciate Pulmonary consult. Breathing treatments p.r.n. basis. Keep on home medications including Cardizem as appropriate. Monitor heart rate. Improving Proton pump inhibitor for GI prophylaxis. coumadin toxicity we will monitor his PT and INR. Continue Diflucan. Monitor liver function tests improving Labs for tomorrow Discussed with patient Discussed with RN Further recommendations will follow as the patient progresses. Will monitor in intensive care unit today Enoch Godoy MD Aug 30, 2016 12:04
--- NOTE | 2016-08-30 17:24 | HHI.CCPN ---
History - Height: 182.88 cm Weight: 93.1 kg Allergies: Coded Allergies: Tetracycline (Verified Allergy, Severe, throat swells, 08/29/16) Demerol (Verified Allergy, Intermediate, hallucinations, 08/29/16) Exam Patient Data - Vital Signs Date Time Temp Pulse Resp B/P Pulse Ox O2 Delivery O2 Flow Rate FiO2 08/30/16 16:00 109 08/30/16 16:00 98.1 110 20 161/82 96 08/30/16 14:00 112 08/30/16 12:00 111 08/30/16 12:00 97.7 111 23 149/86 94 08/30/16 10:00 105 08/30/16 09:33 95 High Flow Nasal Cannula 40.00 30 08/30/16 08:00 98.0 117 15 148/98 95 08/30/16 08:00 117 08/30/16 07:46 93 BiPAP 25 08/30/16 07:42 95 25 08/30/16 06:15 94 25 08/30/16 05:30 120 08/30/16 05:30 98.4 120 28 129/78 94 08/30/16 04:00 96.3 136 17 150/91 97 08/30/16 03:05 98 25 08/30/16 00:32 19 08/30/16 00:00 96.1 115 22 123/83 98 08/29/16 20:50 98.4 109 20 116/73 2 Nasal Cannula 08/29/16 20:02 98 Nasal Cannula 2.00 08/29/16 19:20 98.4 102 20 130/71 97 Nasal Cannula 2 08/29/16 18:02 110 20 146/82 99 Nasal Cannula 3 Intake & Output 08/29/16 08/29/16 08/30/16 14:59 22:59 06:59 Intake Total 300 ml Balance 300 ml IV Total 300 ml Results CBC/BMP: 08/30/16 0751 08/30/16 0751 Assessment/Plan Assessment/Plan - Active Problems: Asthma Exacerbation-resolved Acute severe respiratory distress-resolved Acute hypoxic and hypercarbic respiratory failure-resolved Plan: -- continuous inhaled albuterol nebulizer treatment discontinued -Xopenex every 4 hours schedule, every 2 hours when necessary -- Continue Rocephin 1gm iv q12h -- continue methylpred 40mg iv q8h. -- Add azithromycin 500mg iv x 1, then 250mg iv q24h x 5 days. -- continue ativan 0.5mg iv as needed for anxiety -- Patient advanced from BiPAP to high flow nasal cannula currently, on room air O2 sat 95% -- transfer to hospitalist Level 3 Thank you for the consult. . Leslie Martinez MD Aug 30, 2016 17:23
[2016-08-30] MEDS: cefTRIAXone INJ 1,000 MG in SODIUM CHLORIDE 0.9% INJ 100 ML IV SCH (17:25)
[2016-08-30] MEDS: MONTELUKAST SODIUM 10 MG TAB PO SCH (20:15)
[2016-08-30] MEDS: ACETAMINOPHEN/HYDROcodone 325 MG/7.5 MG TAB PO PRN (20:15)
[2016-08-30] MEDS: ATORVASTATIN 20 MG TAB PO SCH (20:15)
[2016-08-30] MEDS: PROMETHAZINE/CODEINE 6.25 MG/10 MG/5 ML CUP PO PRN (20:16)
[2016-08-30] MEDS: BUDESONIDE-FORMOTEROL 160/4.5 MCG INHALER INH SCH (20:16)
[2016-08-30] MEDS: HYDROmorphone HCL PF 1 MG/ML VIAL IV PRN (23:00)
[2016-08-31] VITALS (18 sets, daily range): BP systolic 141–169; BP diastolic 74–90; PULSE 65–108; RESP 15–20; TEMP 97.3–98.7; O2SAT 95–99
[2016-08-31] MEDS: ACETAMINOPHEN/HYDROcodone 325 MG/7.5 MG TAB PO PRN ×2 (01:15→16:22)
--- NOTE | 2016-08-31 02:15 | EKG ---
Date Performed: 08/29/2016 Time Performed: 14:20:12 PTAGE: 51 years EKG: ATRIAL FIBRILLATION WITH RAPID VENTRICULAR RESPONSE MODERATE VOLTAGE CRITERIA FOR LVH, CONS IDER NORMAL VARIANT NONSPECIFIC ST & T-WAVE ABNORMALITY ABNORMAL RHYTHM ECG PREVIOUS TRACING : 07/10/2016 17.04 DOCTOR: Shantanu King Interpretating Date/Time 08/31/2016 02:13:39
[2016-08-31] MEDS: RESP: LEVALBUTEROL HYDROCHLORIDE 1.25 MG/3 ML NEB (SCH) NEB ×6 (04:13→20:18)
[2016-08-31 05:06] LABS: HEMATOCRIT 22.5 % (39.0-51.0); MEAN CELL VOLUME 72.6 FL (80.0-100.0); MEAN CORPUSCULAR HEMOGLOBIN 22.7 PG (27.0-34.0); MEAN CORPUSCULAR HGB CONC 31.2 % (32.0-36.0); PLATELET COUNT 355 TH/MM3 (150-450); RED CELL DISTRIBUTION WIDTH 20.3 % (11.6-17.2); WHITE BLOOD COUNT 10.1 TH/MM3 (4.0-11.0)
[2016-08-31 05:11] LABS: INTERNATIONAL NORMALIZED RATIO 5.2 RATIO; PROTHROMBIN TIME - PATIENT 62.2 SEC (9.8-11.6)
[2016-08-31 05:13] LABS: REVIEW FLAG FINAL
[2016-08-31] MEDS: HYDROmorphone HCL PF 1 MG/ML VIAL IV PRN ×3 (05:16→18:06)
[2016-08-31] MEDS: methylPREDNISolone SOD SUCC 40 MG/1 ML VIAL IV PUSH SCH ×3 (05:16→21:47)
[2016-08-31 05:27] LABS: BICARBONATE 27.8 MEQ/L (21.0-32.0); POTASSIUM 3.9 MEQ/L (3.5-5.1)
[2016-08-31] MEDS: SUCRALFATE 1 GM TAB PO SCH ×3 (09:39→16:23)
[2016-08-31] MEDS: PANTOPRAZOLE SOD 40 MG DELAYED RELEASE TAB PO SCH (09:39)
[2016-08-31] MEDS: FLUCONAZOLE 200 MG TAB PO SCH (09:39)
[2016-08-31] MEDS: LORazepam 0.5 MG TAB PO SCH ×2 (09:39→20:58)
[2016-08-31] MEDS: BUDESONIDE-FORMOTEROL 160/4.5 MCG INHALER INH SCH ×2 (09:39→20:57)
[2016-08-31] MEDS: SODIUM CHLORIDE 0.9% FLUSH 5 ML FLUSH FLUSH SCH ×2 (09:40→20:58)
[2016-08-31] MEDS: DILTIAZEM-CD 180 MG CAP ER PO SCH (09:40)
[2016-08-31] MEDS: cefTRIAXone INJ 1,000 MG in SODIUM CHLORIDE 0.9% INJ 100 ML IV SCH (16:23)
--- NOTE | 2016-08-31 16:32 | HHI.PR ---
Subjective Remarks Patient has some shortness of breath , with wheezing Sitting on a chair No nausea vomiting No chest pain No diaphoresis No other complaint Review of systems a 12 point system otherwise unremarkable Objective Objective Results - Vital Signs Date Time Temp Pulse Resp B/P Pulse Ox O2 Delivery O2 Flow Rate FiO2 08/31/16 14:00 102 08/31/16 12:00 97.3 93 15 142/84 97 08/31/16 12:00 93 08/31/16 10:00 97 08/31/16 08:00 97.7 94 20 146/84 97 08/31/16 08:00 94 08/31/16 07:26 96 08/31/16 06:00 65 08/31/16 04:00 97.7 82 15 141/74 96 08/31/16 04:00 82 08/31/16 02:00 89 08/31/16 00:00 96 08/31/16 00:00 98.1 96 18 154/75 95 08/30/16 22:50 97 Nasal Cannula 2.00 08/30/16 22:00 103 08/30/16 20:04 95 21 08/30/16 20:00 105 08/30/16 20:00 98.3 105 21 144/88 95 08/30/16 18:00 114 I/O 08/30/16 08/30/16 08/30/16 08/31/16 08/31/16 08/31/16 06:59 14:59 22:59 06:59 14:59 22:59 Intake Total 300 ml 2308 ml 678 ml 675 ml 1378 ml Output Total 900 ml 1025 ml 550 ml 1100 ml Balance 300 ml 1408 ml -347 ml 125 ml 278 ml Intake Oral 720 ml 700 ml IV Total 300 ml 1588 ml 678 ml 675 ml 678 ml Output Urine Total 900 ml 1025 ml 550 ml 1100 ml # Bowel Movements 0 Result Diagram: 08/31/16 0350 08/31/16 0350 Other Results Laboratory Tests Test 08/31/16 03:50 White Blood Count 10.1 Red Blood Count 3.10 Hemoglobin 7.0 Hematocrit 22.5 Mean Corpuscular Volume 72.6 Mean Corpuscular Hemoglobin 22.7 Mean Corpuscular Hemoglobin 31.2 Concent Red Cell Distribution Width 20.3 Platelet Count 355 Mean Platelet Volume 6.9 Prothrombin Time 62.2 Prothromb Time International 5.2 Ratio Sodium Level 141 Potassium Level 3.9 Chloride Level 105 Carbon Dioxide Level 27.8 Anion Gap 8 Blood Urea Nitrogen 15 Creatinine 0.80 Estimat Glomerular Filtration 102 Rate Random Glucose 140 Calcium Level 8.3 Physical Exam Physical Exam GENERAL: The patient is alert and oriented x3, well-built, well-nourished and Sitting on chair with nasal cannula oxygen. VITAL SIGNS: Reviewed. On high flow oxygen HEAD, EYES, EARS, NOSE, THROAT: Head is normocephalic and atraumatic. Eyes - negative conjunctival icterus. Mouth unremarkable. NECK: The neck is supple. Central trachea. CHEST: Some decreased air entry bibasilarly with scattered expiratory wheezing. CARDIOVASCULAR: S1 and S2 audible. I do not hear any S3 gallop. GASTROINTESTINAL: Abdomen soft and nontender. No organomegaly. Positive bowel sounds. MUSCULOSKELETAL: Extremities have no cyanosis or pedal edema appreciated. CENTRAL NERVOUS SYSTEM: Alert and oriented and moving all his extremities. SKIN: Warm and dry. There is a surgical scar with a Steri-Strip on the right hip area. There is no swelling noted. No discharge noted on the exposed area. PSYCHIATRIC: Appropriate mood and affect. A/P Assessment and Plan 1. Acute asthma/ COPD exacerbation with respiratory failure/insufficiency on admission. 2. Coumadin toxicity. 3. Recent right hip surgery with infection now on medication, Diflucan. 4. Tachycardia. 5. Hypertension. 6. History of depression and anxiety. 7. History of DVT and PE. 8. Arthritis. 9. History of hyperlipidemia. 10. Gastroesophageal reflux disease (GERD). PLAN: Seen in ICU today. Appreciate critical care input and help Continue oxygen as per pulmonary and keep oxygen saturation above 92%. Continue IV steroid Continue IV antibiotic. Appreciate Pulmonary input. Breathing treatments p.r.n. basis. Labs reviewed Decrease H&H, will monitor Is still high INR. Plan for vitamin K by mouth Keep on home medications including Cardizem as appropriate. Monitor heart rate. Proton pump inhibitor for GI prophylaxis. coumadin toxicity we will monitor his PT and INR. Continue Diflucan. Monitor liver function tests better Labs for tomorrow Discussed with patient and his spouse at bedside Discussed with RN Further recommendations will follow as the patient progresses. Stable enough to go to [facility] discussed with RN Enoch Godoy MD Aug 31, 2016 16:32
[2016-08-31] MEDS ORDERED: PHYTONADIONE 5 MG TAB PO ONE (16:45)
[2016-08-31] MEDS: RESP: LEVALBUTEROL HYDROCHLORIDE 1.25 MG/3 ML NEB (PRN) NEB (17:46)
[2016-08-31] MEDS: SODIUM CHLOR 0.9% 1000 ML INJ 1,000 ML IV SCH (18:00)
[2016-08-31 18:20] LABS: HEMATOCRIT 25.6 % (39.0-51.0); MEAN CELL VOLUME 72.1 FL (80.0-100.0); MEAN CORPUSCULAR HEMOGLOBIN 22.5 PG (27.0-34.0); MEAN CORPUSCULAR HGB CONC 31.2 % (32.0-36.0); PLATELET COUNT 451 TH/MM3 (150-450); RED BLOOD COUNT 3.55 MIL/MM3 (4.50-5.90); RED CELL DISTRIBUTION WIDTH 20.5 % (11.6-17.2); WHITE BLOOD COUNT 13.7 TH/MM3 (4.0-11.0)
[2016-08-31 18:22] LABS: REVIEW FLAG FINAL
[2016-08-31] MEDS: PROMETHAZINE/CODEINE 6.25 MG/10 MG/5 ML CUP PO PRN (18:35)
[2016-08-31] MEDS: ATORVASTATIN 20 MG TAB PO SCH (20:57)
[2016-08-31] MEDS: MONTELUKAST SODIUM 10 MG TAB PO SCH (20:58)
[2016-08-31] MEDS: AZITHROMYCIN INJ 250 MG in SODIUM CHLOR 0.9% 250 ML INJ 250 ML IV SCH (21:48)
[2016-09-01] VITALS (28 sets, daily range): BP systolic 142–174; BP diastolic 86–98; PULSE 76–120; RESP 18–24; TEMP 97.6–98.3; O2SAT 95–99
[2016-09-01] MEDS: ACETAMINOPHEN/HYDROcodone 325 MG/7.5 MG TAB PO PRN (03:06)
[2016-09-01] MEDS: SODIUM CHLOR 0.9% 1000 ML INJ 1,000 ML IV SCH ×2 (03:07→18:01)
[2016-09-01] MEDS: RESP: LEVALBUTEROL HYDROCHLORIDE 1.25 MG/3 ML NEB (SCH) NEB ×5 (03:33→23:34)
[2016-09-01 04:16] LABS: HEMATOCRIT 22.7 % (39.0-51.0); MEAN CELL VOLUME 71.8 FL (80.0-100.0); MEAN CORPUSCULAR HEMOGLOBIN 22.5 PG (27.0-34.0); MEAN CORPUSCULAR HGB CONC 31.4 % (32.0-36.0); PLATELET COUNT 371 TH/MM3 (150-450); RED BLOOD COUNT 3.16 MIL/MM3 (4.50-5.90); RED CELL DISTRIBUTION WIDTH 20.4 % (11.6-17.2); WHITE BLOOD COUNT 11.1 TH/MM3 (4.0-11.0)
[2016-09-01 04:23] LABS: REVIEW FLAG FINAL
[2016-09-01 04:45] LABS: BICARBONATE 26.4 MEQ/L (21.0-32.0); POTASSIUM 3.8 MEQ/L (3.5-5.1)
[2016-09-01] MEDS: methylPREDNISolone SOD SUCC 40 MG/1 ML VIAL IV PUSH SCH ×3 (05:55→21:26)
[2016-09-01] MEDS: BUDESONIDE-FORMOTEROL 160/4.5 MCG INHALER INH SCH ×2 (09:26→21:59)
[2016-09-01] MEDS: FLUCONAZOLE 200 MG TAB PO SCH (09:27)
[2016-09-01] MEDS: DILTIAZEM-CD 180 MG CAP ER PO SCH (09:27)
[2016-09-01] MEDS: LORazepam 0.5 MG TAB PO SCH ×2 (09:27→21:26)
[2016-09-01] MEDS: SUCRALFATE 1 GM TAB PO SCH ×3 (09:27→18:05)
[2016-09-01] MEDS: SODIUM CHLORIDE 0.9% FLUSH 5 ML FLUSH FLUSH SCH ×2 (09:27→21:00)
[2016-09-01] MEDS: PANTOPRAZOLE SOD 40 MG DELAYED RELEASE TAB PO SCH (09:27)
[2016-09-01] MEDS: HYDROmorphone HCL PF 1 MG/ML VIAL IV PRN ×3 (10:05→21:53)
[2016-09-01] MEDS ORDERED: ACETAMINOPHEN 325 MG TAB PO PRN (14:45)
[2016-09-01] MEDS ORDERED: diphenhydrAMINE HCL 25 MG CAP PO PRN (14:45)
[2016-09-01] MEDS ORDERED: FUROSEMIDE 20 MG/2 ML VIAL IV PRN (14:45)
[2016-09-01] MEDS ORDERED: SODIUM CHLOR 0.9% 250 ML INJ 250 ML IV ONE (14:45)
--- NOTE | 2016-09-01 14:47 | HHI.PR ---
Subjective Remarks Patient has some shortness of breath , with wheezing Pain some and the right hip with leakage of the wound Lying on bed No nausea vomiting No chest pain No diaphoresis No other complaint Review of systems a 12 point system otherwise unremarkable Objective Objective Results - Vital Signs Date Time Temp Pulse Resp B/P Pulse Ox O2 Delivery O2 Flow Rate FiO2 09/01/16 13:00 107 09/01/16 12:00 106 09/01/16 11:49 98 Nasal Cannula 2.00 09/01/16 11:00 93 09/01/16 11:00 97.8 93 22 147/86 98 09/01/16 10:00 92 09/01/16 09:00 105 09/01/16 08:00 108 09/01/16 07:11 97 Nasal Cannula 2.00 09/01/16 07:00 97.7 94 24 155/86 97 09/01/16 07:00 97 Room Air 09/01/16 07:00 81 09/01/16 06:00 87 09/01/16 05:00 94 09/01/16 04:00 90 09/01/16 03:35 97 Nasal Cannula 2.00 09/01/16 03:00 97.7 88 20 142/88 98 09/01/16 03:00 88 09/01/16 02:00 76 09/01/16 01:00 83 09/01/16 00:00 79 08/31/16 23:00 96 08/31/16 23:00 97.8 96 20 155/87 99 08/31/16 22:00 93 08/31/16 21:00 96 08/31/16 20:19 98 Nasal Cannula 2.00 08/31/16 20:00 93 08/31/16 20:00 98.7 94 20 169/90 99 08/31/16 19:00 108 08/31/16 18:11 98.0 100 20 149/89 96 08/31/16 18:00 96 08/31/16 16:00 101 I/O 08/31/16 08/31/16 08/31/16 09/01/16 09/01/16 09/01/16 07:00 15:00 23:00 07:00 15:00 23:00 Intake Total 675 ml 1378 ml 1671 ml Output Total 550 ml 1100 ml 2350 ml Balance 125 ml 278 ml -679 ml Intake Oral 700 ml 480 ml IV Total 675 ml 678 ml 1191 ml Output Urine Total 550 ml 1100 ml 2350 ml # Bowel Movements 0 0 Result Diagram: 09/01/16 1153 09/01/16 0338 Other Results Laboratory Tests Test 08/31/16 09/01/16 09/01/16 17:51 03:38 11:53 White Blood Count 13.7 11.1 Red Blood Count 3.55 3.16 Hemoglobin 8.0 7.1 7.2 Hematocrit 25.6 22.7 Mean Corpuscular Volume 72.1 71.8 Mean Corpuscular Hemoglobin 22.5 22.5 Mean Corpuscular Hemoglobin 31.2 31.4 Concent Red Cell Distribution Width 20.5 20.4 Platelet Count 451 371 Mean Platelet Volume 7.0 6.9 Sodium Level 142 Potassium Level 3.8 Chloride Level 105 Carbon Dioxide Level 26.4 Anion Gap 11 Blood Urea Nitrogen 12 Creatinine 0.91 Estimat Glomerular Filtration 87 Rate Random Glucose 148 Calcium Level 8.7 Physical Exam Physical Exam GENERAL: The patient is alert and oriented x3, well-built, well-nourished and Sitting on chair with nasal cannula oxygen. VITAL SIGNS: Reviewed. HEAD, EYES, EARS, NOSE, THROAT: Head is normocephalic and atraumatic. Eyes - negative conjunctival icterus. Mouth unremarkable. NECK: The neck is supple. Central trachea. CHEST: Some decreased air entry bibasilarly with scattered expiratory wheezing. CARDIOVASCULAR: S1 and S2 audible. I do not hear any S3 gallop. GASTROINTESTINAL: Abdomen soft and nontender. No organomegaly. Positive bowel sounds. MUSCULOSKELETAL: Extremities have no cyanosis or pedal edema appreciated. Positive very small opening on the right hip wound with serous type leakage very small quantity CENTRAL NERVOUS SYSTEM: Alert and oriented and moving all his extremities. SKIN: Warm and dry. There is a surgical scar with a Steri-Strip on the right hip area. There is no swelling noted. No discharge noted on the exposed area. PSYCHIATRIC: Appropriate mood and affect. A/P Assessment and Plan 1. Acute asthma/ COPD exacerbation with respiratory failure/insufficiency on admission. 2. Coumadin toxicity. 3. Recent right hip surgery with infection now on medication, Diflucan. 4. Tachycardia. 5. Hypertension. 6. History of depression and anxiety. 7. History of DVT and PE. 8. Arthritis. 9. History of hyperlipidemia. 10. Gastroesophageal reflux disease (GERD). PLAN: Seen in [facility] today. Appreciate Dr. Reid input discussed with him on the floor Continue oxygen as per pulmonary and keep oxygen saturation above 92%. Continue IV steroid Continue IV antibiotic. Consult orthopedic Consult infectious disease Continue antibiotic Diflucan Breathing treatments p.r.n. basis. Labs reviewed Decrease H&H, plan for blood transfusion on September 01, 2 units MONITOR INR. Status post vitamin K by mouth on August 31 Keep on home medications including Cardizem as appropriate. Monitor heart rate. Proton pump inhibitor for GI prophylaxis. coumadin toxicity we will monitor his PT and INR. Continue Diflucan. Monitor liver function tests better Labs for tomorrow Discussed with patient and his spouse at bedside Discussed with RN Further recommendations will follow as the patient progresses. Enoch Godoy MD Sep 01, 2016 14:47
[2016-09-01] MEDS: PROMETHAZINE/CODEINE 6.25 MG/10 MG/5 ML CUP PO PRN (16:11)
[2016-09-01] MEDS: cefTRIAXone INJ 1,000 MG in SODIUM CHLORIDE 0.9% INJ 100 ML IV SCH (16:59)
[2016-09-01] MEDS: MONTELUKAST SODIUM 10 MG TAB PO SCH (21:26)
[2016-09-01] MEDS: ATORVASTATIN 20 MG TAB PO SCH (21:52)
[2016-09-01] MEDS: AZITHROMYCIN INJ 250 MG in SODIUM CHLOR 0.9% 250 ML INJ 250 ML IV SCH (22:00)
[2016-09-02] VITALS (24 sets, daily range): BP systolic 146–165; BP diastolic 90–97; PULSE 81–106; RESP 20–22; TEMP 97.9–98.2; O2SAT 96–97
[2016-09-02] MEDS: ACETAMINOPHEN/HYDROcodone 325 MG/7.5 MG TAB PO PRN (00:55)
[2016-09-02] MEDS: SODIUM CHLOR 0.9% 1000 ML INJ 1,000 ML IV SCH ×2 (02:23→12:23)
[2016-09-02] MEDS: RESP: LEVALBUTEROL HYDROCHLORIDE 1.25 MG/3 ML NEB (SCH) NEB ×5 (04:01→19:45)
[2016-09-02 05:23] LABS: HEMATOCRIT 27.7 % (39.0-51.0); MEAN CELL VOLUME 73.5 FL (80.0-100.0); MEAN CORPUSCULAR HEMOGLOBIN 23.4 PG (27.0-34.0); MEAN CORPUSCULAR HGB CONC 31.9 % (32.0-36.0); PLATELET COUNT 340 TH/MM3 (150-450); RED BLOOD COUNT 3.78 MIL/MM3 (4.50-5.90); RED CELL DISTRIBUTION WIDTH 20.8 % (11.6-17.2); WHITE BLOOD COUNT 12.3 TH/MM3 (4.0-11.0)
[2016-09-02 05:24] LABS: REVIEW FLAG FINAL
[2016-09-02 06:34] LABS: BICARBONATE 26.9 MEQ/L (21.0-32.0); POTASSIUM 3.7 MEQ/L (3.5-5.1)
[2016-09-02] MEDS: HYDROmorphone HCL PF 1 MG/ML VIAL IV PRN ×3 (07:30→20:58)
[2016-09-02] MEDS: methylPREDNISolone SOD SUCC 40 MG/1 ML VIAL IV PUSH SCH ×3 (07:30→20:58)
[2016-09-02] MEDS: SUCRALFATE 1 GM TAB PO SCH ×3 (09:27→17:21)
[2016-09-02] MEDS: DILTIAZEM-CD 180 MG CAP ER PO SCH (09:27)
[2016-09-02] MEDS: FLUCONAZOLE 200 MG TAB PO SCH (09:28)
[2016-09-02] MEDS: PANTOPRAZOLE SOD 40 MG DELAYED RELEASE TAB PO SCH (09:28)
[2016-09-02] MEDS: SODIUM CHLORIDE 0.9% FLUSH 5 ML FLUSH FLUSH SCH ×2 (09:28→20:57)
[2016-09-02] MEDS: BUDESONIDE-FORMOTEROL 160/4.5 MCG INHALER INH SCH ×2 (09:28→20:57)
[2016-09-02] MEDS: LORazepam 0.5 MG TAB PO SCH ×2 (10:28→20:55)
--- NOTE | 2016-09-02 11:23 | HHI.PR ---
Subjective History of Present Illness Patient seen and examined Chart reviewed Still very short of breath, worsened after minimal activity Feels tight in his chest Still wheezing a lot Positive cough, no sputum No fever or chills No nausea or vomiting Good appetite Right hip still draining Right hip pain is in control No nausea or vomiting Good appetite Offers no other complaints Vitals/Results Intake & Output 09/01/16 09/01/16 09/02/16 14:59 22:59 06:59 Intake Total 2499 ml 2060 ml Output Total 2365 ml 1950 ml Balance 134 ml 110 ml Intake Oral 1440 ml 960 ml IV Total 1059 ml 850 ml Packed Cells 250 ml Output Urine Total 2365 ml 1950 ml # Voids 8 # Bowel Movements 2 Vital Signs Vital Signs Date Time Temp Pulse Resp B/P Pulse Ox O2 Delivery O2 Flow Rate FiO2 09/02/16 08:40 97 09/02/16 08:00 92 09/02/16 07:15 88 09/02/16 07:15 97 Nasal Cannula 2.00 09/02/16 07:15 98.0 92 20 155/90 97 09/02/16 06:00 88 09/02/16 05:00 87 09/02/16 04:00 85 09/02/16 03:00 81 09/02/16 03:00 81 20 161/97 96 09/02/16 02:00 88 09/02/16 01:00 89 09/02/16 00:00 89 09/01/16 23:00 88 09/01/16 23:00 97.6 88 20 160/93 98 09/01/16 22:00 100 09/01/16 21:00 101 09/01/16 20:34 95 Nasal Cannula 2.00 09/01/16 20:00 105 09/01/16 19:00 98.3 99 20 174/98 98 09/01/16 19:00 102 09/01/16 19:00 98 Nasal Cannula 2.00 09/01/16 18:00 106 09/01/16 17:40 98.3 103 18 149/90 99 09/01/16 17:00 95 09/01/16 16:00 101 09/01/16 15:00 108 09/01/16 15:00 98.2 100 22 157/95 97 09/01/16 14:00 120 12/25/16 13:00 107 09/01/16 12:00 106 09/01/16 11:49 98 Nasal Cannula 2.00 CBC/BMP: 09/02/16 0421 09/02/16 0421 Lab Results Laboratory Tests Test 09/01/16 09/01/16 09/02/16 11:53 15:55 04:21 Hemoglobin 7.2 GM/DL 8.8 GM/DL Blood Type O POSITIVE Antibody Screen NEGATIVE Crossmatch Leukocyte-Reduced Red Blood Cells Blood Bank Comment White Blood Count 12.3 TH/MM3 Red Blood Count 3.78 MIL/MM3 Hematocrit 27.7 % Mean Corpuscular Volume 73.5 FL Mean Corpuscular Hemoglobin 23.4 PG Mean Corpuscular Hemoglobin 31.9 % Concent Red Cell Distribution Width 20.8 % Platelet Count 340 TH/MM3 Mean Platelet Volume 6.7 FL Sodium Level 141 MEQ/L Potassium Level 3.7 MEQ/L Chloride Level 103 MEQ/L Carbon Dioxide Level 26.9 MEQ/L Anion Gap 11 MEQ/L Blood Urea Nitrogen 15 MG/DL Creatinine 0.90 MG/DL Estimat Glomerular Filtration 89 ML/MIN Rate Random Glucose 154 MG/DL Calcium Level 8.5 MG/DL Physical Exam General General Appearance: No Acute Distress, Comfortable, Anxious Eyes Eye Exam: Pupils Equal, Sclera White, Extraocular Movement Intact Ears & Nose Ears & Nose Exam: Nasal Mucosa [place] Throat Throat Exam: Oral Mucosa [place] & Moist Neck Neck Exam: Neck Supple, Trachea Midline Pulmonary Resp Exam: Breath Sounds Equal, Rhonchi, Labored Resp Remarks Bilateral expiratory rhonchi Cardiology CV Exam: Regular, Normal Sinus Rhythm Gastrointestinal/Abdomen GI Exam: Soft, Non-Tender, Bowel Sounds Present Musculoskeletal MS Remarks Right hip incision looks okay, dressing is soaked with serous drainage Integumentary Skin Exam: Warm, Dry Extremeties Extremities Exam: No Edema, Pedal Pulses Palpable Neurologic Neuro Exam: Alert, Awake, Oriented, Speech Clear, Moving All Extremities Psychiatric Psych Exam: Appropriate Responses PUD Prophylasis PUD Prophylaxis: Protonix Assessment/Plan Assessment/Plan Assessment and Plan 1. Acute asthma/ COPD exacerbation with respiratory failure/insufficiency on admission. 2. S/P Coumadin toxicity. 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 4. Tachycardia. 5. Hypertension. 6. History of depression and anxiety. 7. History of DVT and PE. 8. Arthritis. 9. History of hyperlipidemia. 10. Gastroesophageal reflux disease (GERD). PLAN: Continue oxygen , keep saturation above 92%. Continue IV steroid Aerosol treatment Antitussives when necessary Continue IV antibiotic. orthopedic consult awaited Infectious disease awaited Continue antibiotic Diflucan Analgesics Wound care Follow INR today, resume Coumadin, try to maintain INR between 2 and 3 Labs reviewed Status post PRBC transfusion Follow-up H&H, Keep on home medications including Cardizem as appropriate. Monitor heart rate. Proton pump inhibitor for GI prophylaxis. Monitor liver function tests better Labs for tomorrow Discussed with patient Discussed with RN Will follow Alvin Sandoval MD Sep 02, 2016 11:23
[2016-09-02] MEDS: PROMETHAZINE/CODEINE 6.25 MG/10 MG/5 ML CUP PO PRN (12:29)
[2016-09-02 12:50] LABS: CRITICAL VALUE YES
[2016-09-02 14:04] LABS: INTERNATIONAL NORMALIZED RATIO 1.3 RATIO
[2016-09-02] MEDS: cefTRIAXone INJ 1,000 MG in SODIUM CHLORIDE 0.9% INJ 100 ML IV SCH (17:22)
--- NOTE | 2016-09-02 18:38 | PD.ID.CON ---
History of Present Illness Service ID Consult Requested By Dr Godoy Reason for Consult R hip infx Primary Care Physician Myron Woodward MD Diagnoses: History of Present Illness Pt is well known to me. 51 M with candidal infection of R [place] hip and sp prosthesis placement last month He previously grew nothing from that hip , but the last culture came + for C.albicans He was d/c'd on fluconazole and initially got better but obly for 1-2 weeks, he cont to expericence R hip pain, difficulty walking, swelling redness and increasing drainage from incision No fever chills Pt was admitted with asthma attack which was reportedly triggered by a cold He is somwwhat better He is on CFTX, azithromycin for suspected LLL PNA His C. albicans isolate was S to fluconazole Review of Systems Other as per history of present illness, the rest of 12 point review is negative Past Family Social History Allergies: Coded Allergies: Tetracycline (Verified Allergy, Severe, throat swells, 08/29/16) Demerol (Verified Allergy, Intermediate, hallucinations, 08/29/16) Past Medical History PE DVT RLE Asthma dislipidemia Past Surgical History bl hip surgery Active Ordered Medications Medications where reviewed in EMR Antibiotics Include: cefazolin vancomycin Family History CAD Social History No Tobacco. occasional ETOH. No Illicit Drugs. Active Ordered Medications Past Surgical History bl hip surgery Medications where reviewed in EMR Antibiotics Include: azithromycin, CFTX Floconazole 400 mg po Family History CAD Social History No Tobacco. occasional ETOH. No Illicit Drugs. Physical Exam Vital Signs Vital Signs Date Time Temp Pulse Resp B/P Pulse Ox O2 Delivery O2 Flow Rate FiO2 09/02/16 18:00 93 09/02/16 17:00 97 09/02/16 16:00 94 09/02/16 15:00 94 09/02/16 15:00 97.9 90 20 146/93 97 09/02/16 14:00 104 09/02/16 13:00 105 09/02/16 12:00 101 09/02/16 11:00 98.2 105 22 161/95 97 09/02/16 11:00 97 09/02/16 10:00 104 09/02/16 09:00 106 09/02/16 08:40 97 09/02/16 08:00 92 09/02/16 07:15 88 09/02/16 07:15 97 Nasal Cannula 2.00 09/02/16 07:15 98.0 92 20 155/90 97 09/02/16 06:00 88 09/02/16 05:00 87 09/02/16 04:00 85 09/02/16 03:00 81 09/02/16 03:00 81 20 161/97 96 09/02/16 02:00 88 09/02/16 01:00 89 09/02/16 00:00 89 09/01/16 23:00 88 09/01/16 23:00 97.6 88 20 160/93 98 09/01/16 22:00 100 09/01/16 21:00 101 09/01/16 20:34 95 Nasal Cannula 2.00 09/01/16 20:00 105 09/01/16 19:00 98.3 99 20 174/98 98 09/01/16 19:00 102 09/01/16 19:00 98 Nasal Cannula 2.00 Physical Exam CONSTITUTIONAL/GENERAL: This is an obese patient, in no apparent distress. SKIN: No jaundice, rashes, or lesions. Skin temperature appropriate. Not diaphoretic. HEAD: Atraumatic. Normocephalic. EYES: Pupils equal and round and reactive. Extraocular motions intact. No scleral icterus. No injection or drainage. Fundi not examined. ENT: Hearing grossly normal. Nose without bleeding or purulent drainage. Oral mucosae without visible erythema, exudates, masses, or lesions. NECK: Trachea midline. Supple, nontender. No palpable thyroid enlargement or nodularity. CARDIOVASCULAR: Regular rate and rhythm without murmurs, gallops, or rubs. No JVD. Peripheral pulses symmetric. RESPIRATORY/CHEST: Symmetric, unlabored respirations. Extensive wheezing to auscultation. Breath sounds equal bilaterally. No rales, or rhonchi. GASTROINTESTINAL: Abdomen soft, globular non-tender, nondistended. No hepato- splenomegaly, or palpable masses. No guarding. Bowel sounds present. GENITOURINARY: Without palpable bladder distension. MUSCULOSKELETAL: Extremities without clubbing, cyanosis, or edema. Incision over R hip mostly healed, but with clear odorless drainage + erythema, + edema, tender to palpaton Decreased ROM 2/2 pain LYMPHATICS: No palpable cervical or supraclavicular adenopathy. NEUROLOGICAL: Awake and alert. Motor and sensory grossly within normal limits. Follows commands. Cognitively sharp. Moves all extremities. PSYCHIATRIC: No obvious anxiety/depression. no apparent hallucinations or other psychotic thought process. Laboratory Laboratory Tests Test 09/02/16 09/02/16 04:21 13:36 White Blood Count 12.3 Red Blood Count 3.78 Hemoglobin 8.8 Hematocrit 27.7 Mean Corpuscular Volume 73.5 Mean Corpuscular Hemoglobin 23.4 Mean Corpuscular Hemoglobin 31.9 Concent Red Cell Distribution Width 20.8 Platelet Count 340 Mean Platelet Volume 6.7 Sodium Level 141 Potassium Level 3.7 Chloride Level 103 Carbon Dioxide Level 26.9 Anion Gap 11 Blood Urea Nitrogen 15 Creatinine 0.90 Estimat Glomerular Filtration 89 Rate Random Glucose 154 Calcium Level 8.5 Prothrombin Time 14.0 Prothromb Time International 1.3 Ratio Result Diagram: 09/02/16 0421 09/02/16 0421 Imaging Last Impressions Chest X-Ray 08/30/16 0000 Signed Impressions: Service Date/Time: Tuesday, August 30, 2016 07:20 - CONCLUSION: 1. Minimal left basilar density likely subsegmental atelectasis. Davion Carranza MD CT Angiography 08/29/16 1609 Signed Impressions: Service Date/Time: August 16:50 - CONCLUSION: No evidence of pulmonary embolism. Minimal bibasilar atelectasis. Cardiomegaly and coronary artery calcifications. Samuel King MD Assessment and Plan Assessment and Plan Prosthetic hip infx, R hip, C.albicans - failed conservative tx Here for PNA and asthma attack - cont fluconazol - pt needs 2 stage procedure with remoavl of the prosthesis, prolonged tx with fluconazol and subsequent re-implantation - cont CFTX, azithro for now Discussed Condition With pt, at b/s Marizol Morris MD Sep 02, 2016 18:38
[2016-09-02] MEDS: ENOXAPARIN SODIUM 40 MG/0.4 ML SYRINGE SQ SCH (20:00)
[2016-09-02] MEDS: MONTELUKAST SODIUM 10 MG TAB PO SCH (20:55)
[2016-09-02] MEDS: ATORVASTATIN 20 MG TAB PO SCH (20:56)
[2016-09-02] MEDS: AZITHROMYCIN INJ 250 MG in SODIUM CHLOR 0.9% 250 ML INJ 250 ML IV SCH (20:58)
[2016-09-02] MEDS: cloNIDine HCL 0.1 MG TAB PO PRN (23:59)
[2016-09-03] VITALS (25 sets, daily range): BP systolic 147–162; BP diastolic 86–95; PULSE 74–108; RESP 17–19; TEMP 97.6–98.7; O2SAT 95–98
[2016-09-03] MEDS: RESP: LEVALBUTEROL HYDROCHLORIDE 1.25 MG/3 ML NEB (SCH) NEB ×5 (00:13→15:06)
[2016-09-03] MEDS: methylPREDNISolone SOD SUCC 40 MG/1 ML VIAL IV PUSH SCH ×3 (05:12→20:26)
[2016-09-03] MEDS: SODIUM CHLOR 0.9% 1000 ML INJ 1,000 ML IV SCH ×2 (05:16→18:23)
[2016-09-03 06:58] LABS: INTERNATIONAL NORMALIZED RATIO 1.3 RATIO; PROTHROMBIN TIME - PATIENT 14.8 SEC (9.8-11.6)
[2016-09-03] MEDS: HYDROmorphone HCL PF 1 MG/ML VIAL IV PRN ×3 (08:03→21:04)
[2016-09-03] MEDS: LORazepam 0.5 MG TAB PO SCH ×2 (08:03→20:27)
[2016-09-03] MEDS: DILTIAZEM-CD 180 MG CAP ER PO SCH (08:03)
[2016-09-03] MEDS: PANTOPRAZOLE SOD 40 MG DELAYED RELEASE TAB PO SCH (08:03)
[2016-09-03] MEDS: SUCRALFATE 1 GM TAB PO SCH ×3 (08:03→17:19)
[2016-09-03] MEDS: FLUCONAZOLE 200 MG TAB PO SCH (09:26)
[2016-09-03] MEDS: SODIUM CHLORIDE 0.9% FLUSH 5 ML FLUSH FLUSH SCH ×2 (09:27→20:27)
[2016-09-03] MEDS: BUDESONIDE-FORMOTEROL 160/4.5 MCG INHALER INH SCH ×2 (09:27→20:28)
[2016-09-03] MEDS: PROMETHAZINE/CODEINE 6.25 MG/10 MG/5 ML CUP PO PRN (09:27)
[2016-09-03] MEDS ORDERED: EPINEPHrine HCL (1:10,000) 1 MG/10 ML SYRINGE ONE (11:31)
[2016-09-03] MEDS ORDERED: ATROPINE SULFATE 1 MG/10 ML SYRINGE ONE (11:31)
--- NOTE | 2016-09-03 12:31 | RADRPT ---
EXAM DATE/TIME: 09/03/2016 11:41 [facility] COMPARISON: HIP RIGHT (AP&LAT 2/3VWS) WO AP PELVIS, August 09, 2016, 17:46. INDICATIONS : Pain in right hip MEDICAL HISTORY : Asthma SURGICAL HISTORY : Right hip surgery ENCOUNTER: Initial ACUITY: 1 week PAIN SCORE: 4/10 LOCATION: Right Hip FINDINGS: A two view examination of the right hip was performed. The right hip prosthesis appears to be intact. No acute bony fracture or joint dislocation is seen. Soft tissues are unremarkable. No significant c hange in the alignment or position of the prosthesis compared to the prior study.. CONCLUSION: 1. No acute fracture or joint dislocation. 2. Right hip prosthesis appears to be grossly intact. Tyler Mast MD on September 03, 2016 at 12:27 Board Certified Radiologist. This report was verified electronically.
--- NOTE | 2016-09-03 13:39 | HHI.PR ---
Subjective History of Present Illness Feels little better today Breathing is improving slowly Less wheezing Less cough, no sputum No fever or chills No nausea or vomiting Good appetite Right hip still draining Right hip pain is in control No nausea or vomiting Good appetite Offers no other complaints is at bedside Vitals/Results Intake & Output 09/02/16 09/02/16 09/03/16 14:59 22:59 06:59 Intake Total 1760 ml 1510 ml Output Total 2100 ml 1200 ml Balance -340 ml 310 ml Intake Oral 960 ml 480 ml IV Total 800 ml 1030 ml Output Urine Total 2100 ml 1200 ml # Bowel Movements 1 0 Vital Signs Vital Signs Date Time Temp Pulse Resp B/P Pulse Ox O2 Delivery O2 Flow Rate FiO2 09/03/16 12:00 108 09/03/16 11:00 93 09/03/16 11:00 98.1 102 17 147/91 96 09/03/16 10:11 97 Room Air 09/03/16 10:00 104 09/03/16 10:00 104 09/03/16 09:00 101 09/03/16 09:00 101 09/03/16 08:00 91 09/03/16 08:00 91 09/03/16 07:41 96 21 09/03/16 07:00 97.6 85 19 160/89 97 09/03/16 07:00 80 09/03/16 07:00 74 09/03/16 06:00 84 09/03/16 05:19 98.0 91 18 158/86 97 09/03/16 05:00 87 09/03/16 04:00 96 09/03/16 03:00 81 09/03/16 02:00 81 09/03/16 01:00 92 09/03/16 00:00 103 09/02/16 23:00 93 09/02/16 22:39 98.1 91 20 165/92 97 09/02/16 19:45 96 21 09/02/16 19:00 Nasal Cannula 2.00 21 09/02/16 19:00 98.1 82 161/92 97 09/02/16 18:00 93 09/02/16 17:00 97 09/02/16 16:00 94 09/02/16 15:00 94 09/02/16 15:00 97.9 90 20 146/93 97 09/02/16 14:00 104 CBC/BMP: 09/02/16 0421 09/02/16 0421 Lab Results Laboratory Tests Test 09/03/16 09/03/16 05:19 11:02 Prothrombin Time 14.8 SEC Prothromb Time International 1.3 RATIO Ratio Erythrocyte Sedimentation Rate 5 mm/hr C-Reactive Protein LESS THAN 0.29 MG/DL Physical Exam General General Appearance: No Acute Distress, Comfortable Eyes Eye Exam: Pupils Equal, Sclera White, Extraocular Movement Intact Ears & Nose Ears & Nose Exam: Nasal Mucosa [place] Throat Throat Exam: Oral Mucosa [place] & Moist Neck Neck Exam: Neck Supple, Trachea Midline Pulmonary Resp Exam: Breath Sounds Equal, No Distress, Rhonchi Resp Remarks occ expiratory rhonchi Cardiology CV Exam: Regular, Normal Sinus Rhythm Gastrointestinal/Abdomen GI Exam: Soft, Non-Tender, Bowel Sounds Present Musculoskeletal MS Remarks Right hip incision looks okay, dressing is soaked with serous drainage Integumentary Skin Exam: Warm, Dry Extremeties Extremities Exam: No Edema, Pedal Pulses Palpable Neurologic Neuro Exam: Alert, Awake, Oriented, Speech Clear, Moving All Extremities Psychiatric Psych Exam: Appropriate Responses PUD Prophylasis PUD Prophylaxis: Protonix Assessment/Plan Assessment/Plan Assessment and Plan 1. Acute asthma/ COPD exacerbation with respiratory failure/insufficiency on admission. 2. S/P Coumadin toxicity. 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 4. Tachycardia. 5. Hypertension. 6. History of depression and anxiety. 7. History of DVT and PE. 8. Arthritis. 9. History of hyperlipidemia. 10. Gastroesophageal reflux disease (GERD). PLAN: Continue oxygen , keep saturation above 92%. Continue IV steroid Aerosol treatment Symbicort twice daily Continue Singulair Antitussives when necessary Continue IV antibiotic. Rocephin and Zithromax orthopedic consult appreciated, discussed with Dr. Barnes , patient has antibiotic spacer in place He recommends double coverage for fungal infection/he spoke to Dr. Morris Orthopedic will consider I&D of right hip next week on Diflucan Analgesics Wound care Continue Coumadin, try to maintain INR between 2 and 3 Status post PRBC transfusion Follow-up H&H, Keep on home medications including Cardizem as appropriate. Monitor heart rate. Proton pump inhibitor for GI prophylaxis. Discussed with patient and his at bedside A.m. labs Will follow Alvin Sandoval MD Sep 03, 2016 13:39 Alvin Sandoval MD Sep 03, 2016 13:39
[2016-09-03] MEDS: cefTRIAXone INJ 1,000 MG in SODIUM CHLORIDE 0.9% INJ 100 ML IV SCH (17:18)
[2016-09-03] MEDS: WARFARIN SOD 2 MG TAB PO SCH (17:19)
[2016-09-03] MEDS: ACETAMINOPHEN/HYDROcodone 325 MG/7.5 MG TAB PO PRN (17:19)
--- NOTE | 2016-09-03 18:18 | HHI.IDPN ---
Subjective Subjective Remarks pt is co pain of R hip and interm,ittent drainage no fever cont to wheez Antibiotics CFTX azithro Fluconazol Allergies: Coded Allergies: Tetracycline (Verified Allergy, Severe, throat swells, 08/29/16) Demerol (Verified Allergy, Intermediate, hallucinations, 08/29/16) Objective . Vital Signs Date Time Temp Pulse Resp B/P Pulse Ox O2 Delivery O2 Flow Rate FiO2 09/03/16 18:04 79 09/03/16 17:00 90 09/03/16 16:00 83 09/03/16 15:08 95 21 09/03/16 15:00 98.7 86 19 156/90 96 09/03/16 15:00 90 09/03/16 14:00 94 09/03/16 13:00 98 09/03/16 12:00 108 09/03/16 11:00 93 09/03/16 11:00 98.1 102 17 147/91 96 09/03/16 10:11 97 Room Air 09/03/16 10:00 104 09/03/16 10:00 104 09/03/16 09:00 101 09/03/16 09:00 101 09/03/16 08:00 91 09/03/16 08:00 91 09/03/16 07:41 96 21 09/03/16 07:00 97.6 85 19 160/89 97 09/03/16 07:00 80 09/03/16 07:00 74 09/03/16 06:00 84 09/03/16 05:19 98.0 91 18 158/86 97 09/03/16 05:00 87 09/03/16 04:00 96 09/03/16 03:00 81 09/03/16 02:00 81 09/03/16 01:00 92 09/03/16 00:00 103 09/02/16 23:00 93 09/02/16 22:39 98.1 91 20 165/92 97 09/02/16 19:45 96 21 09/02/16 19:00 Nasal Cannula 2.00 21 09/02/16 19:00 98.1 82 161/92 97 09/02/16 09/02/16 09/03/16 15:00 23:00 07:00 Intake Total 1760 ml 1510 ml Output Total 2100 ml 1200 ml Balance -340 ml 310 ml Intake Oral 960 ml 480 ml IV Total 800 ml 1030 ml Output Urine Total 2100 ml 1200 ml # Bowel Movements 1 0 . HUSEYIN ALBICANS (PRESUMPTIVE ID) 08/19/16-1040 C.ALBICANS M.I.C. RX --------- --- AMPHOTERICIN 0.5 NS ANIDULAFUNGIN 0.12 S CASPOFUNGIN 0.03 S FLUCONAZOLE 0.5 S ITRACONAZOLE 0.06 NS MICAFUNGIN <=0.008 S POSACONAZOLE 0.03 NS 5-FLUCYTOSINE <=0.06 NS VORICONAZOLE <=0.008 S Test 09/02/16 09/03/16 04:21 11:02 White Blood Count 12.3 TH/MM3 Red Blood Count 3.78 MIL/MM3 Hemoglobin 8.8 GM/DL Hematocrit 27.7 % Mean Corpuscular Volume 73.5 FL Mean Corpuscular Hemoglobin 23.4 PG Mean Corpuscular Hemoglobin 31.9 % Concent Red Cell Distribution Width 20.8 % Platelet Count 340 TH/MM3 Mean Platelet Volume 6.7 FL Erythrocyte Sedimentation Rate 5 mm/hr Laboratory Tests Test 09/02/16 09/03/16 04:21 11:02 Sodium Level 141 MEQ/L Potassium Level 3.7 MEQ/L Chloride Level 103 MEQ/L Carbon Dioxide Level 26.9 MEQ/L Anion Gap 11 MEQ/L Blood Urea Nitrogen 15 MG/DL Creatinine 0.90 MG/DL Estimat Glomerular Filtration 89 ML/MIN Rate Random Glucose 154 MG/DL Calcium Level 8.5 MG/DL C-Reactive Protein LESS THAN 0.29 MG/DL Imaging Last Impressions Hip X-Ray 09/03/16 0000 Signed Impressions: Service Date/Time: Saturday, September 03, 2016 11:41 - CONCLUSION: 1. No acute fracture or joint dislocation. 2. Right hip prosthesis appears to be grossly intact. Tyler Mast MD Chest X-Ray 08/30/16 0000 Signed Impressions: Service Date/Time: Tuesday, August 30, 2016 07:20 - CONCLUSION: 1. Minimal left basilar density likely subsegmental atelectasis. Davion Carranza MD CT Angiography 08/29/16 1609 Signed Impressions: Service Date/Time: August 16:50 - CONCLUSION: No evidence of pulmonary embolism. Minimal bibasilar atelectasis. Cardiomegaly and coronary artery calcifications. Samuel King MD Physical Exam CONSTITUTIONAL/GENERAL: This is an obese patient, in no apparent distress. SKIN: No jaundice, rashes, or lesions. Skin temperature appropriate. Not diaphoretic. EYES: Pupils equal and round and reactive. Extraocular motions intact. No scleral icterus. No injection or drainage. Fundi not examined. ENT: Oral mucosae without visible erythema, exudates, masses, or lesions. CARDIOVASCULAR: Regular rate and rhythm without murmurs, gallops, or rubs. No JVD. Peripheral pulses symmetric. RESPIRATORY/CHEST: Symmetric, unlabored respirations. Extensive wheezing to auscultation. Breath sounds equal bilaterally. No rales, or rhonchi. GASTROINTESTINAL: Abdomen soft, globular non-tender, nondistended. No hepato- splenomegaly, or palpable masses. MUSCULOSKELETAL: Extremities without clubbing, cyanosis, or edema. Incision over R hip mostly healed, but with clear odorless drainage + erythema, + tense edema, tender to palpaton Decreased ROM 2/2 pain NEUROLOGICAL: Awake and alert. Motor and sensory grossly within normal limits. Follows commands. Cognitively sharp. Moves all extremities. Assessment & Plan Remarks Prosthetic hip infx, R hip, C.albicans - failed conservative tx Here for PNA and asthma attack - cont fluconazol - add Eraxiz - pt needs 2 stage procedure with remoavl of the prosthesis, prolonged tx with fluconazol and subsequent re-implantation - cont CFTX, azithro for now Discussed Condition With Dr Oliva pt, at b/s Marizol Morris MD Sep 03, 2016 18:18
[2016-09-03] MEDS: RESP: LEVALBUTEROL HYDROCHLORIDE 1.25 MG/3 ML NEB (PRN) NEB ×2 (19:36→23:53)
[2016-09-03] MEDS: ENOXAPARIN SODIUM 40 MG/0.4 ML SYRINGE SQ SCH (20:00)
[2016-09-03] MEDS ORDERED: SODIUM CHLOR 0.9% IV ONE (20:00)
[2016-09-03] MEDS ORDERED: SODIUM CHLORIDE IV SCH ×2 (20:00)
[2016-09-03] MEDS ORDERED: ANIDULAFUNGIN IV ONE (20:00)
[2016-09-03] MEDS ORDERED: MICAFUNGIN IV SCH ×2 (20:00)
[2016-09-03] MEDS: ATORVASTATIN 20 MG TAB PO SCH (20:27)
[2016-09-03] MEDS: MONTELUKAST SODIUM 10 MG TAB PO SCH (20:27)
[2016-09-03] MEDS: AZITHROMYCIN INJ 250 MG in SODIUM CHLOR 0.9% 250 ML INJ 250 ML IV SCH (20:28)
[2016-09-03] MEDS: SODIUM CHLORIDE 0.9% FLUSH 5 ML FLUSH FLUSH PRN (21:04)
[2016-09-04] VITALS (24 sets, daily range): BP systolic 131–173; BP diastolic 84–105; PULSE 75–108; RESP 18–20; TEMP 97.3–98.7; O2SAT 97–99
[2016-09-04] MEDS: PROMETHAZINE/CODEINE 6.25 MG/10 MG/5 ML CUP PO PRN ×2 (00:05→08:21)
[2016-09-04] MEDS: RESP: LEVALBUTEROL HYDROCHLORIDE 1.25 MG/3 ML NEB (PRN) NEB ×5 (04:17→21:18)
[2016-09-04] MEDS: methylPREDNISolone SOD SUCC 40 MG/1 ML VIAL IV PUSH SCH ×2 (04:31→21:46)
[2016-09-04 06:55] LABS: INTERNATIONAL NORMALIZED RATIO 1.5 RATIO; PROTHROMBIN TIME - PATIENT 16.8 SEC (9.8-11.6)
[2016-09-04] MEDS: SODIUM CHLOR 0.9% 1000 ML INJ 1,000 ML IV SCH ×2 (07:00→14:23)
[2016-09-04] MEDS: LORazepam 0.5 MG TAB PO SCH ×2 (08:14→21:44)
[2016-09-04] MEDS: FLUCONAZOLE 200 MG TAB PO SCH (08:14)
[2016-09-04] MEDS: SUCRALFATE 1 GM TAB PO SCH ×3 (08:14→16:56)
[2016-09-04] MEDS: DILTIAZEM-CD 180 MG CAP ER PO SCH (08:14)
[2016-09-04] MEDS: PANTOPRAZOLE SOD 40 MG DELAYED RELEASE TAB PO SCH (08:15)
[2016-09-04] MEDS: SODIUM CHLORIDE 0.9% FLUSH 5 ML FLUSH FLUSH SCH ×2 (08:20→21:00)
[2016-09-04] MEDS: ACETAMINOPHEN/HYDROcodone 325 MG/7.5 MG TAB PO PRN ×3 (08:20→21:45)
[2016-09-04] MEDS: BUDESONIDE-FORMOTEROL 160/4.5 MCG INHALER INH SCH ×2 (08:22→21:48)
[2016-09-04] MEDS: cloNIDine HCL 0.1 MG TAB PO PRN ×2 (08:30→23:36)
--- NOTE | 2016-09-04 09:57 | HHI.PR ---
Subjective History of Present Illness Had spell of shortness of breath this morning/felt tight in his chest History wheezing a lot no sputum No fever or chills No nausea or vomiting Good appetite Right hip still draining Right hip pain is in control Offers no other complaints Vitals/Results Intake & Output 09/03/16 09/03/16 09/04/16 15:00 23:00 07:00 Intake Total 1386 ml 1465 ml Output Total 1325 ml 700 ml Balance 61 ml 765 ml Intake Oral 1200 ml 440 ml IV Total 186 ml 1025 ml Output Urine Total 1325 ml 700 ml # Bowel Movements 2 0 Vital Signs Vital Signs Date Time Temp Pulse Resp B/P Pulse Ox O2 Delivery O2 Flow Rate FiO2 09/04/16 09:46 18 09/04/16 08:02 97 Nasal Cannula 2.00 09/04/16 06:00 75 09/04/16 03:00 78 09/04/16 03:00 98.7 89 18 156/92 97 09/04/16 00:00 86 09/03/16 23:00 98.4 92 18 155/95 96 09/03/16 23:00 92 09/03/16 19:37 98 21 09/03/16 19:00 98.6 84 18 162/93 97 09/03/16 19:00 84 09/03/16 19:00 97 Room Air 09/03/16 18:04 79 09/03/16 17:00 90 09/03/16 16:00 83 09/03/16 15:08 95 21 09/03/16 15:00 98.7 86 19 156/90 96 09/03/16 15:00 90 09/03/16 14:00 94 09/03/16 13:00 98 09/03/16 12:00 108 09/03/16 11:00 93 09/03/16 11:00 98.1 102 17 147/91 96 09/03/16 10:11 97 Room Air 09/03/16 10:00 104 09/03/16 10:00 104 CBC/BMP: 09/02/16 0421 09/02/16 0421 Lab Results Laboratory Tests Test 09/03/16 09/04/16 11:02 06:15 Erythrocyte Sedimentation Rate 5 mm/hr C-Reactive Protein LESS THAN 0.29 MG/DL Prothrombin Time 16.8 SEC Prothromb Time International 1.5 RATIO Ratio Physical Exam General General Appearance: No Acute Distress, Comfortable Eyes Eye Exam: Pupils Equal, Sclera White, Extraocular Movement Intact Ears & Nose Ears & Nose Exam: Nasal Mucosa [place] Throat Throat Exam: Oral Mucosa [place] & Moist Neck Neck Exam: Neck Supple, Trachea Midline Pulmonary Resp Exam: Breath Sounds Equal, No Distress, Rhonchi Resp Remarks occ expiratory rhonchi Cardiology CV Exam: Regular, Normal Sinus Rhythm Gastrointestinal/Abdomen GI Exam: Soft, Non-Tender, Bowel Sounds Present Musculoskeletal MS Remarks Right hip incision looks okay, dressing is soaked with serous drainage Integumentary Skin Exam: Warm, Dry Extremeties Extremities Exam: No Edema, Pedal Pulses Palpable Neurologic Neuro Exam: Alert, Awake, Oriented, Speech Clear, Moving All Extremities Psychiatric Psych Exam: Appropriate Responses PUD Prophylasis PUD Prophylaxis: Protonix Assessment/Plan Assessment/Plan Assessment and Plan 1. Acute asthma/ COPD exacerbation with respiratory failure/insufficiency on admission. 2. S/P Coumadin toxicity. 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 4. Tachycardia. 5. Hypertension. 6. History of depression and anxiety. 7. History of DVT and PE. 8. Arthritis. 9. History of hyperlipidemia. 10. Gastroesophageal reflux disease (GERD). PLAN: Continue oxygen , keep saturation above 92%. Increase IV steroid Aerosol treatment qid & q2 hrs prn cont Symbicort twice daily Continue Singulair Antitussives when necessary Continue IV antibiotic. Rocephin and Zithromax IV micafungin was started by Dr. Morris Orthopedic will consider I&D of right hip next week Analgesics Wound care Continue Coumadin, try to maintain INR between 2 and 3 d/c lovenox when INR > 2 Follow-up H&H, cont Cardizem Proton pump inhibitor for GI prophylaxis. Discussed with patient Will follow Alvin Sandoval MD Sep 04, 2016 09:57 Keep on home medications including Cardizem as appropriate. Monitor heart rate. Proton pump inhibitor for GI prophylaxis. Discussed with patient and his at bedside A.m. labs Will follow Alvin Sandoval MD Sep 04, 2016 09:57
--- NOTE | 2016-09-04 10:48 | PD.ORT.PN ---
Subjective Post Op Day #: approx 4 weeks Pain Scale: not much. right now asthma attack since 0500 Subjective Remarks as above. Not able to walk much bec of asthma Objective Vitals Vital Signs Date Time Temp Pulse Resp B/P Pulse Ox O2 Delivery O2 Flow Rate FiO2 09/04/16 09:46 18 09/04/16 09:00 146/92 09/04/16 08:02 97 Nasal Cannula 2.00 09/04/16 07:30 97.3 96 18 173/105 98 09/04/16 07:30 98 Nasal Cannula 2.00 09/04/16 06:00 75 09/04/16 03:00 78 09/04/16 03:00 98.7 89 18 156/92 97 09/04/16 00:00 86 09/03/16 23:00 98.4 92 18 155/95 96 09/03/16 23:00 92 09/03/16 19:37 98 21 09/03/16 19:00 98.6 84 18 162/93 97 09/03/16 19:00 84 09/03/16 19:00 97 Room Air 09/03/16 18:04 79 09/03/16 17:00 90 09/03/16 16:00 83 09/03/16 15:08 95 21 09/03/16 15:00 98.7 86 19 156/90 96 09/03/16 15:00 90 09/03/16 14:00 94 09/03/16 13:00 98 09/03/16 12:00 108 09/03/16 11:00 93 09/03/16 11:00 98.1 102 17 147/91 96 I/O 09/03/16 09/03/16 09/03/16 09/04/16 09/04/16 09/04/16 06:59 14:59 22:59 06:59 14:59 22:59 Intake Total 1510 ml 1386 ml 1465 ml Output Total 1200 ml 1325 ml 700 ml Balance 310 ml 61 ml 765 ml Intake Oral 480 ml 1200 ml 440 ml IV Total 1030 ml 186 ml 1025 ml Output Urine Total 1200 ml 1325 ml 700 ml # Bowel Movements 0 2 0 Result Diagram: 09/02/1642009/02/16 042 Other Results Laboratory Tests Test 09/04/16 06:15 Prothrombin Time 16.8 SEC (9.8-11.6) Prothromb Time International 1.5 RATIO Ratio Imaging Last 72 hours Impressions Hip X-Ray 09/03/16 0000 Signed Impressions: Service Date/Time: Saturday, September 03, 2016 11:41 - CONCLUSION: 1. No acute fracture or joint dislocation. 2. Right hip prosthesis appears to be grossly intact. Tyler Mast MD Objective Remarks A,A, and O Sitting OOB with O2, asthma, got IV steroids this morning Dressings not chnged yet Assessment & Plan Assessment and Plan Stsble right hip spacer with Prostolac ESR 5 CRP,0.29 Xray, no active osteomyelitis On MICAfungin and Diflucan PLAN: literature review suggests aggrsssive antifungal Rx with 2 or more drugs, 6-12 weeks NORMAL ESR and CRP, and mild pain clinically suggests infection under control If drainage persists, worsens, or symptoms worsen, one would have to consider revision to new fungicide loaded cement spacer Patient can be discharged with IV antifungals if otherwise stable for DC Shaan Lindo MD Sep 04, 2016 10:48
--- NOTE | 2016-09-04 10:56 | HHI.FF ---
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 My clinical findings support the need for the requested home health care services because: Infection w/ risk of complications Injectable med education/admin I certify that my clinical findings support that this patient is homebound because: Hx COPD- exertion dyspnea/weakness Unable to use public transportation Shaan Lindo MD Sep 04, 2016 10:56
--- NOTE | 2016-09-04 11:39 | MB ---
cc: JES PUGA M.D. DATE OF CONSULTATION 09/03/2016 REASON FOR CONSULTATION Recurrent drainage right hip. HISTORY This patient has been in and out of the hospital several times this past year, most recently for pain in the right hip for which he had several tests done and eventually ended up with arthrotomy of the right hip and evacuation of abscess and treatment with vancomycin. He had recurrence of infection, therefore approximately four weeks ago he was taken to the operating room and had arthroplasty performed on the right hip with excision of the right femoral head and neck where he was found to have osteomyelitis and had debridement of the joint and replacement with a Prostalac hip implant with antibiotic loaded cement. The only pathogen, however, we discovered on tissue culture was on a two out of four cultures of Ghada albicans and his treatment was changed from an antibacterial stain type to antifungals in the form of Diflucan. The patient did well for about two weeks, then started to have some pain and swelling and some redness and now he has some drainage. At any rate he was admitted to the hospital this time for status asthmaticus and is being here in this hospital for the past six days. PHYSICAL EXAMINATION Physical examination yesterday revealed that he had some redness and edema around the right hip with some serous drainage. No wound dehiscence, however. He does not have the type of pain he had in the right hip before. He is able to get out of bed and ambulate and weight bear. No neurovascular deficit in the right foot. X-RAYS X-ray done yesterday revealed satisfactory appearance of the Prostalac implants of the right hip. No evidence of any active osteomyelitis at this time. LABORATORY DATA His sed rate yesterday was 5. Previously on outpatient testing his sed rate had gone down to 10 and 15 respectively over the last two weeks. He is CRP yesterday was also normal. DISCUSSION Literature review indicates that these problems needed to be treated aggressively with two or more antifungals. It appears that the oral antifungal has been inadequate at this time. There is also supported in the literature for arthroplasty with cement loaded spacers, loaded with anti-fungicides. At any rate he just had recent surgery four weeks ago with debridement and cement loaded spacer (though with antibacterials and not antifungals). He has recurrent drainage but from a clinical perspective his sed rate is normal. CRP is normal. His pain is mild to minimal and therefore I feel that we could see how he does with more aggressive antifungal treatment including IV antifungals (Dr. Morris started him on micafungin yesterday) and we will see what kind of response we have. If we have inadequate response, I would be more than happy to do a revision arthroplasty but this time with a different type of spacer and loaded with one or more antifungals to see the response we get. MD PETE Christiansen/MARIA ESTHER /11:00 AM /11:31 AM
[2016-09-04] MEDS: HYDROmorphone HCL PF 1 MG/ML VIAL IV PRN (11:52)
[2016-09-04] MEDS ORDERED: methylPREDNISolone SOD SUCC 40 MG/1 ML VIAL IV PUSH SCH (14:00)
--- NOTE | 2016-09-04 14:46 | RADRPT ---
EXAM DATE/TIME: 09/04/2016 13:58 [facility] COMPARISON: CHEST SINGLE AP, August 30, 2016, 7:20. INDICATIONS : PICC line placement. MEDICAL HISTORY : None. SURGICAL HISTORY : None. ENCOUNTER: Initial ACUITY: 1 day PAIN SCORE: 0/10 LOCATION: Bilateral chest FINDINGS: A single view of the chest demonstrates the lungs to be symmetrically aerated without evidence of mas s, infiltrate or effusion. The cardiomediastinal contours are unremarkable. Osseous structures are intact. Right-sided PICC line with the tip in the cavoatrial junction. CONCLUSION: PICC line in good position. Adriel Steward Jr., MD on September 04, 2016 at 14:37 Board Certified Radiologist. This report was verified electronically.
[2016-09-04] MEDS: WARFARIN SOD 2 MG TAB PO SCH (15:25)
[2016-09-04 16:20] LABS: AUTOMATED NEUTROPHIL # 13.4 TH/MM3 (1.8-7.7); BASOPHIL % 0.1 % (0.0-2.0); HEMATOCRIT 31.2 % (39.0-51.0); LYMPH % 3.8 % (9.0-44.0); LYMPHOCYTE # 0.6 TH/MM3 (1.0-4.8); MEAN CELL VOLUME 74.5 FL (80.0-100.0); MEAN CORPUSCULAR HEMOGLOBIN 23.5 PG (27.0-34.0); MEAN CORPUSCULAR HGB CONC 31.6 % (32.0-36.0); MONO % 7.6 % (0.0-8.0); NEUT % 88.5 % (16.0-70.0); PLATELET COUNT 318 TH/MM3 (150-450); RED BLOOD COUNT 4.19 MIL/MM3 (4.50-5.90); RED CELL DISTRIBUTION WIDTH 21.7 % (11.6-17.2); WHITE BLOOD COUNT 15.1 TH/MM3 (4.0-11.0)
[2016-09-04 16:21] LABS: HEMO FLAGS AUTO DIFF
[2016-09-04] MEDS: cefTRIAXone INJ 1,000 MG in SODIUM CHLORIDE 0.9% INJ 100 ML IV SCH (16:57)
[2016-09-04 17:37] LABS: BANDS 1 % (0-6); CORRECTED NUCLEATED RBC 1 /100 WBC (0-0); METAMYELOCYTES 2 % (0-1); MYELOCYTES 1 % (0-0); POLYS (SEG NEUTROPHILS) 89 % (16-70); WBC DIFF SAMPLE 100
[2016-09-04 17:38] LABS: KERATOCYTES 1+ (NORMAL); OVALOCYTES 2+ (NORMAL)
[2016-09-04 17:39] LABS: PLATELET ESTIMATE SMEAR NORMAL (NORMAL); PLATELET MORPHOLOGY NORMAL (NORMAL); SCAN/DIFF FINAL DIFF MANUAL
--- NOTE | 2016-09-04 19:30 | HHI.PR ---
Subjective Remarks C/O pain in right hip. SOB and had an asthmatic attack today. On O2 3L. Objective Vital Signs Date Time Temp Pulse Resp B/P Pulse Ox O2 Delivery O2 Flow Rate FiO2 09/04/16 18:15 20 09/04/16 18:00 79 09/04/16 17:00 80 09/04/16 16:00 83 09/04/16 15:39 98 Nasal Cannula 1.00 09/04/16 15:00 84 09/04/16 15:00 98.2 81 18 131/87 97 09/04/16 14:00 79 09/04/16 13:17 18 09/04/16 13:00 90 09/04/16 12:00 79 09/04/16 11:00 98.0 91 18 147/84 99 09/04/16 11:00 94 09/04/16 10:00 99 09/04/16 09:00 146/92 09/04/16 09:00 108 09/04/16 08:02 97 Nasal Cannula 2.00 09/04/16 08:00 81 09/04/16 07:30 97.3 96 18 173/105 98 09/04/16 07:30 98 Nasal Cannula 2.00 09/04/16 07:00 90 09/04/16 06:00 75 09/04/16 03:00 78 09/04/16 03:00 98.7 89 18 156/92 97 09/04/16 00:00 86 09/03/16 23:00 98.4 92 18 155/95 96 09/03/16 23:00 92 09/03/16 19:37 98 21 I/O 09/03/16 09/03/16 09/03/16 09/04/16 09/04/16 09/04/16 07:00 15:00 23:00 07:00 15:00 23:00 Intake Total 1510 ml 1386 ml 1465 ml 1800 ml Output Total 1200 ml 1325 ml 700 ml 1600 ml Balance 310 ml 61 ml 765 ml 200 ml Intake Oral 480 ml 1200 ml 440 ml 1200 ml IV Total 1030 ml 186 ml 1025 ml 600 ml Output Urine Total 1200 ml 1325 ml 700 ml 1600 ml # Bowel Movements 0 2 0 1 Result Diagram: 09/04/16 1516 09/02/16 0421 Objective Remarks GENERAL: Mid aged W/M is alert. HEENT: Exam unremarkable. Eyes without icterus. Throat clear NECK: Without adenopathy or thyroid enlargement. Central trachea. CHEST: No dullness to percussion. Scattered end-expiratory wheeze on auscultation. CARDIAC: PMI distant. S1, S2 audible. No murmur or rub. ABDOMEN: Lax. Bowel sounds audible. EXTREMITIES: No clubbing, cyanosis or edema. Assessment and Plan Assessment and Plan IMPRESSION 1. Asthma exacerbation. 2. Hypertension. 3. Status post DVT/PE. 4. Status post septic arthritis, right hip. 5. Anxiety/depression. Plan : 1. O2 at 2L. 2. Nebs qid , duoneb. 3. Cont Antibiotics per ID. 4. Solumedrol 40 mg IV q8h. 5. Labs in am. 6. Cont Symbicort 160/4.5 mcg . 2 puffs bid Ashok Valdes MD Sep 04, 2016 19:30
[2016-09-04] MEDS ORDERED: SODIUM CHLORIDE 0.9% IV SCH (20:00)
[2016-09-04] MEDS: ENOXAPARIN SODIUM 40 MG/0.4 ML SYRINGE SQ SCH (20:00)
[2016-09-04] MEDS ORDERED: ANIDULAFUNGIN IV SCH (20:00)
[2016-09-04] MEDS: MONTELUKAST SODIUM 10 MG TAB PO SCH (21:44)
[2016-09-04] MEDS: ATORVASTATIN 20 MG TAB PO SCH (21:47)
[2016-09-04] MEDS: MICAFUNGIN INJ 150 MG in SODIUM CHLORIDE 0.9% INJ 100 ML IV SCH (21:48)
[2016-09-04] MEDS: AZITHROMYCIN INJ 250 MG in SODIUM CHLOR 0.9% 250 ML INJ 250 ML IV SCH (21:48)
[2016-09-05] VITALS (30 sets, daily range): BP systolic 156–184; BP diastolic 94–108; PULSE 73–111; RESP 18–28; TEMP 97.2–98.7; O2SAT 94–98
[2016-09-05] MEDS: RESP: LEVALBUTEROL HYDROCHLORIDE 1.25 MG/3 ML NEB (PRN) NEB ×4 (02:37→12:22)
[2016-09-05] MEDS: HYDROmorphone HCL PF 1 MG/ML VIAL IV PRN ×2 (03:01→20:15)
[2016-09-05] MEDS: PROMETHAZINE/CODEINE 6.25 MG/10 MG/5 ML CUP PO PRN ×2 (03:22→13:47)
[2016-09-05] MEDS: SODIUM CHLOR 0.9% 1000 ML INJ 1,000 ML IV SCH ×2 (03:23→20:16)
[2016-09-05 03:44] LABS: INTERNATIONAL NORMALIZED RATIO 2.1 RATIO; PROTHROMBIN TIME - PATIENT 23.4 SEC (9.8-11.6)
[2016-09-05] MEDS: methylPREDNISolone SOD SUCC 40 MG/1 ML VIAL IV PUSH SCH ×3 (05:28→20:14)
[2016-09-05] MEDS: FLUCONAZOLE 200 MG TAB PO SCH (08:45)
[2016-09-05] MEDS: DILTIAZEM-CD 180 MG CAP ER PO SCH (08:45)
[2016-09-05] MEDS: LORazepam 0.5 MG TAB PO SCH ×2 (08:46→20:14)
[2016-09-05] MEDS: SUCRALFATE 1 GM TAB PO SCH ×3 (08:46→17:58)
[2016-09-05] MEDS: PANTOPRAZOLE SOD 40 MG DELAYED RELEASE TAB PO SCH (08:46)
[2016-09-05] MEDS: ACETAMINOPHEN/HYDROcodone 325 MG/7.5 MG TAB PO PRN ×3 (08:46→17:58)
[2016-09-05] MEDS: SODIUM CHLORIDE 0.9% FLUSH 5 ML FLUSH FLUSH SCH ×2 (08:47→20:16)
[2016-09-05] MEDS: BUDESONIDE-FORMOTEROL 160/4.5 MCG INHALER INH SCH ×2 (08:50→20:15)
[2016-09-05] MEDS ORDERED: PILL SPLITTER OTHER PRN (13:15)
[2016-09-05] MEDS ORDERED: WARFARIN SOD 2 MG TAB PO SCH (16:00)
[2016-09-05] MEDS: RESP: ALBUTEROL 2.5 MG/IPRATROPIUM 0.5 MG NEB (SCH) NEB ×2 (16:59→19:29)
--- NOTE | 2016-09-05 18:43 | HHI.PR ---
Subjective Remarks C/O pain in right hip. SOB and had an asthmatic attack today. On O2 3L.On solumedrol 40 mg q8h. Objective Vital Signs Date Time Temp Pulse Resp B/P Pulse Ox O2 Delivery O2 Flow Rate FiO2 09/05/16 14:00 100 09/05/16 13:00 90 09/05/16 12:20 18 09/05/16 12:00 83 09/05/16 11:45 98.0 96 20 156/94 96 09/05/16 11:45 96 Nasal Cannula 2.00 09/05/16 11:45 96 09/05/16 11:00 110 09/05/16 10:00 111 09/05/16 09:00 97 09/05/16 08:25 96 21 09/05/16 08:00 87 09/05/16 07:56 84 09/05/16 07:56 98 Room Air 09/05/16 07:56 97.4 84 20 162/96 98 09/05/16 06:00 80 09/05/16 05:00 73 09/05/16 04:00 79 09/05/16 03:35 20 09/05/16 03:30 82 09/05/16 03:30 97.2 87 24 164/94 95 09/05/16 03:00 88 09/05/16 03:00 91 24 172/107 97 09/05/16 02:42 96 Nasal Cannula 2.00 09/05/16 02:30 94 28 184/108 97 09/05/16 02:00 74 09/05/16 01:00 78 09/05/16 00:00 94 09/05/16 00:00 97.4 88 20 161/100 95 09/04/16 23:00 85 09/04/16 22:00 96 159/90 09/04/16 22:00 96 09/04/16 21:03 97 Nasal Cannula 2.00 09/04/16 21:00 81 09/04/16 20:00 97 Nasal Cannula 1.00 09/04/16 20:00 92 09/04/16 20:00 98.0 81 20 166/104 09/04/16 19:00 85 I/O 09/04/16 09/04/16 09/04/16 09/05/16 09/05/16 09/05/16 07:00 15:00 23:00 07:00 15:00 23:00 Intake Total 1465 ml 1800 ml 1685 ml Output Total 700 ml 1600 ml 2275 ml Balance 765 ml 200 ml -590 ml Intake Oral 440 ml 1200 ml 480 ml IV Total 1025 ml 600 ml 1205 ml Output Urine Total 700 ml 1600 ml 2275 ml # Bowel Movements 0 1 0 Result Diagram: 09/04/16 1516 09/02/16 0421 Objective Remarks GENERAL: Mid aged W/M is alert.No distress. HEENT: Exam unremarkable. Eyes without icterus. Throat clear NECK: Without adenopathy or thyroid enlargement. Central trachea. CHEST: Decreased breath sounds. Scattered end-expiratory wheeze on auscultation. CARDIAC: PMI distant. S1, S2 audible. No murmur or rub. ABDOMEN: Lax. Bowel sounds audible. EXTREMITIES: No clubbing, cyanosis or edema.Right hip dressing. Assessment and Plan Assessment and Plan IMPRESSION 1. Asthma exacerbation. 2. Hypertension. 3. Status post DVT/PE. 4. Status post septic arthritis, right hip. 5. Anxiety/depression. Plan : 1. O2 at 2L. 2. Nebs qid , duoneb. 3. Cont Antibiotics per ID. 4. Cont Solumedrol 40 mg IV q8h. 5.CXR in am. 6. Cont Symbicort 160/4.5 mcg . 2 puffs bid Ashok Valdes MD Sep 05, 2016 18:43
[2016-09-05] MEDS: MICAFUNGIN INJ 150 MG in SODIUM CHLORIDE 0.9% INJ 100 ML IV SCH (20:14)
[2016-09-05] MEDS: ATORVASTATIN 20 MG TAB PO SCH (20:15)
[2016-09-05] MEDS: MONTELUKAST SODIUM 10 MG TAB PO SCH (20:15)
--- NOTE | 2016-09-05 21:26 | HHI.PR ---
Subjective History of Present Illness Still having intermittent SOB , worsen w activity less cough no sputum No fever or chills No nausea or vomiting Good appetite Right hip draining less Right hip pain is in control Offers no other complaints Vitals/Results Intake & Output 09/04/16 09/04/16 09/05/16 15:00 23:00 07:00 Intake Total 1800 ml 1685 ml Output Total 1600 ml 2275 ml Balance 200 ml -590 ml Intake Oral 1200 ml 480 ml IV Total 600 ml 1205 ml Output Urine Total 1600 ml 2275 ml # Bowel Movements 1 0 Vital Signs Vital Signs Date Time Temp Pulse Resp B/P Pulse Ox O2 Delivery O2 Flow Rate FiO2 09/05/16 19:29 95 09/05/16 18:00 84 09/05/16 17:00 80 09/05/16 16:00 81 09/05/16 15:45 97.6 84 20 162/98 94 09/05/16 15:45 84 09/05/16 14:00 100 09/05/16 13:00 90 09/05/16 12:20 18 09/05/16 12:00 83 09/05/16 11:45 98.0 96 20 156/94 96 09/05/16 11:45 96 Nasal Cannula 2.00 09/05/16 11:45 96 09/05/16 11:00 110 09/05/16 10:00 111 09/05/16 09:00 97 09/05/16 08:25 96 21 09/05/16 08:00 87 09/05/16 07:56 84 09/05/16 07:56 98 Room Air 09/05/16 07:56 97.4 84 20 162/96 98 09/05/16 06:00 80 09/05/16 05:00 73 09/05/16 04:00 79 09/05/16 03:35 20 09/05/16 03:30 82 09/05/16 03:30 97.2 87 24 164/94 95 09/05/16 03:00 88 09/05/16 03:00 91 24 172/107 97 09/05/16 02:42 96 Nasal Cannula 2.00 09/05/16 02:30 94 28 184/108 97 09/05/16 02:00 74 09/05/16 01:00 78 09/05/16 00:00 94 09/05/16 00:00 97.4 88 20 161/100 95 09/04/16 23:00 85 09/04/16 22:00 96 159/90 09/04/16 22:00 96 CBC/BMP: 09/04/16 1516 09/02/16 0421 Lab Results Laboratory Tests Test 09/05/16 03:09 Prothrombin Time 23.4 SEC Prothromb Time International 2.1 RATIO Ratio Physical Exam General General Appearance: No Acute Distress, Comfortable Eyes Eye Exam: Pupils Equal, Sclera White, Extraocular Movement Intact Ears & Nose Ears & Nose Exam: Nasal Mucosa [place] Throat Throat Exam: Oral Mucosa [place] & Moist Neck Neck Exam: Neck Supple, Trachea Midline Pulmonary Resp Exam: Breath Sounds Equal, No Distress, Rhonchi Resp Remarks occ expiratory rhonchi Cardiology CV Exam: Regular, Normal Sinus Rhythm Gastrointestinal/Abdomen GI Exam: Soft, Non-Tender, Bowel Sounds Present Musculoskeletal MS Remarks Right hip incision looks okay, no sig drainage at this time Integumentary Skin Exam: Warm, Dry Extremeties Extremities Exam: No Edema, Pedal Pulses Palpable Neurologic Neuro Exam: Alert, Awake, Oriented, Speech Clear, Moving All Extremities Psychiatric Psych Exam: Appropriate Responses PUD Prophylasis PUD Prophylaxis: Protonix Assessment/Plan Assessment/Plan Assessment and Plan 1. Acute asthma/ COPD exacerbation with respiratory failure/insufficiency on admission. 2. S/P Coumadin toxicity. 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 4. Tachycardia. 5. Hypertension. 6. History of depression and anxiety. 7. History of DVT and PE. 8. Arthritis. 9. History of hyperlipidemia. 10. Gastroesophageal reflux disease (GERD). PLAN: Continue oxygen , keep saturation above 92%. IV steroid Aerosol treatment qid & q2 hrs prn cont Symbicort twice daily Continue Singulair Antitussives when necessary d/c IV antibiotic. start po ceftin bid IV micafungin was started by Dr. Morris Orthopedic input appreciated Analgesics Wound care reduce Coumadin, f/u INR d/c lovenox cont Cardizem Proton pump inhibitor for GI prophylaxis. Discussed with patient again Will follow Alvin Sandoval MD Sep 05, 2016 21:26
[2016-09-05] MEDS: RESP: ALBUTEROL 2.5 MG/3 ML NEB (PRN) NEB (23:04)
[2016-09-06] VITALS (28 sets, daily range): BP systolic 134–169; BP diastolic 87–102; PULSE 65–121; RESP 16–18; TEMP 97–98; O2SAT 94–98
[2016-09-06] MEDS: RESP: ALBUTEROL 2.5 MG/3 ML NEB (PRN) NEB ×2 (01:40→05:27)
[2016-09-06] MEDS: methylPREDNISolone SOD SUCC 40 MG/1 ML VIAL IV PUSH SCH ×3 (05:01→21:44)
[2016-09-06] MEDS: PROMETHAZINE/CODEINE 6.25 MG/10 MG/5 ML CUP PO PRN ×2 (05:09→13:28)
[2016-09-06 05:21] LABS: INTERNATIONAL NORMALIZED RATIO 3.2 RATIO; PROTHROMBIN TIME - PATIENT 37.6 SEC (9.8-11.6)
--- NOTE | 2016-09-06 06:21 | RADRPT ---
EXAM DATE/TIME: 09/06/2016 05:15 [facility] COMPARISON: CHEST SINGLE AP, September 04, 2016, 13:58. INDICATIONS : Evaluate for pneumonia. MEDICAL HISTORY : None. SURGICAL HISTORY : None. ENCOUNTER: Initial ACUITY: 1 day PAIN SCORE: 0/10 LOCATION: chest FINDINGS: A single view of the chest demonstrates the lungs to be symmetrically aerated without evidence of mas s, infiltrate or effusion. Right-sided PICC line with tip in the SVC. The cardiomediastinal contours are unremarkable. Osseous structures are intact. CONCLUSION: No acute disease. Davion Carranza MD on September 06, 2016 at 6:19 Board Certified Radiologist. This report was verified electronically.
[2016-09-06] MEDS: SODIUM CHLOR 0.9% 1000 ML INJ 1,000 ML IV SCH ×3 (06:23→22:32)
[2016-09-06] MEDS: HYDROmorphone HCL PF 1 MG/ML VIAL IV PRN ×3 (07:46→22:32)
[2016-09-06] MEDS: SUCRALFATE 1 GM TAB PO SCH ×3 (07:46→18:03)
[2016-09-06] MEDS: RESP: ALBUTEROL 2.5 MG/IPRATROPIUM 0.5 MG NEB (SCH) NEB ×4 (08:36→19:34)
[2016-09-06] MEDS: PANTOPRAZOLE SOD 40 MG DELAYED RELEASE TAB PO SCH (08:54)
[2016-09-06] MEDS: SODIUM CHLORIDE 0.9% FLUSH 5 ML FLUSH FLUSH SCH ×2 (08:54→21:46)
[2016-09-06] MEDS: LORazepam 0.5 MG TAB PO SCH ×2 (08:54→21:44)
[2016-09-06] MEDS: DILTIAZEM-CD 180 MG CAP ER PO SCH (08:54)
[2016-09-06] MEDS: FLUCONAZOLE 200 MG TAB PO SCH (08:54)
[2016-09-06] MEDS: BUDESONIDE-FORMOTEROL 160/4.5 MCG INHALER INH SCH ×2 (08:55→21:46)
--- NOTE | 2016-09-06 11:38 | PD.ORT.PN ---
Subjective Post Op Day #: over 4 weeks Pain Scale: mild Subjective Remarks asthma better Hip much better Recurrent fresh blood in toilet GI told him last admission , it wasprob hemorrhoids Range of Motion much improved without pain Distance Walked up to BRP with walker Objective Vitals Vital Signs Date Time Temp Pulse Resp B/P Pulse Ox O2 Delivery O2 Flow Rate FiO2 09/06/16 08:39 95 21 09/06/16 08:01 97.6 93 18 153/91 94 09/06/16 08:01 94 Room Air 09/06/16 08:01 88 09/06/16 06:00 85 09/06/16 05:00 80 09/06/16 04:00 79 09/06/16 03:00 83 09/06/16 03:00 95 Room Air 09/06/16 03:00 98.0 97 18 151/87 95 09/06/16 02:00 89 09/06/16 01:00 84 09/06/16 00:00 90 09/05/16 23:00 99 09/05/16 23:00 96 Room Air 09/05/16 23:00 98.7 101 20 159/94 96 09/05/16 22:00 88 09/05/16 21:00 87 09/05/16 20:00 89 09/05/16 19:29 95 09/05/16 19:00 98.1 89 18 162/98 96 09/05/16 19:00 95 09/05/16 19:00 96 Room Air 09/05/16 18:00 84 09/05/16 17:00 80 09/05/16 16:00 81 09/05/16 15:45 97.6 84 20 162/98 94 09/05/16 15:45 84 09/05/16 14:00 100 09/05/16 13:00 90 09/05/16 12:20 18 09/05/16 12:00 83 09/05/16 11:45 98.0 96 20 156/94 96 09/05/16 11:45 96 Nasal Cannula 2.00 09/05/16 11:45 96 I/O 09/05/16 09/05/16 09/05/16 09/06/16 09/06/16 09/06/16 07:00 15:00 23:00 07:00 15:00 23:00 Intake Total 1685 ml 1528 ml 1232 ml Output Total 2275 ml 800 ml 2300 ml Balance -590 ml 728 ml -1068 ml Intake Oral 480 ml 840 ml 480 ml IV Total 1205 ml 688 ml 752 ml Output Urine Total 2275 ml 800 ml 2300 ml # Bowel Movements 0 0 0 Result Diagram: 09/04/16 1516 09/02/16 0421 Other Results Laboratory Tests Test 09/06/16 05:05 Prothrombin Time 37.6 SEC (9.8-11.6) Prothromb Time International 3.2 RATIO Ratio Imaging Last 72 hours Impressions Hip X-Ray 09/03/16 0000 Signed Impressions: Service Date/Time: Saturday, September 03, 2016 11:41 - CONCLUSION: 1. No acute fracture or joint dislocation. 2. Right hip prosthesis appears to be grossly intact. Tyler Mast MD Objective Remarks A,A, and O Sitting OOB without O2, asthma improved,, Right hip: no active drainage. No obvious sinus, much improved edema, and no redness.t Assessment & Plan Assessment and Plan Stsble right hip spacer with Prostolac ESR 5 CRP,0.29 Xray, no active osteomyelitis On MICAfungin and Diflucan PLAN orthopedically ready for discharge ID needs to order home IV micafungin, and labs to see me Sep 13, if discharged this weekend IF HE NEEDS OUPATIENT ID FOLLOWUP TO REFER TO DR MYLES AT [facility] Shaan Lindo MD Sep 06, 2016 11:38
[2016-09-06] MEDS: ACETAMINOPHEN/HYDROcodone 325 MG/7.5 MG TAB PO PRN ×2 (11:59→21:45)
[2016-09-06] MEDS: CEFUROXIME AXETIL 500 MG TAB PO SCH ×2 (12:00→21:44)
--- NOTE | 2016-09-06 12:45 | HHI.PR ---
Subjective History of Present Illness Still having difficulty breathing, worsen minimal activity Wheezing a lot/feels tightness in the chest Requiring [id number] nebulized treatment along with IV steroids Cough is better ,no sputum No fever or chills No nausea or vomiting Good appetite Continued episodic mild hematochezia, only on the wipes Right hip is not draining Right hip pain is in control Offers no other complaints Vitals/Results Intake & Output 09/05/16 09/05/16 09/06/16 15:00 23:00 07:00 Intake Total 1528 ml 1232 ml Output Total 800 ml 2300 ml Balance 728 ml -1068 ml Intake Oral 840 ml 480 ml IV Total 688 ml 752 ml Output Urine Total 800 ml 2300 ml # Bowel Movements 0 0 Vital Signs Vital Signs Date Time Temp Pulse Resp B/P Pulse Ox O2 Delivery O2 Flow Rate FiO2 09/06/16 09:00 18 09/06/16 08:39 95 21 09/06/16 08:01 97.6 93 18 153/91 94 09/06/16 08:01 94 Room Air 09/06/16 08:01 88 09/06/16 06:00 85 09/06/16 05:00 80 09/06/16 04:00 79 09/06/16 03:00 83 09/06/16 03:00 95 Room Air 09/06/16 03:00 98.0 97 18 151/87 95 09/06/16 02:00 89 09/06/16 01:00 84 09/06/16 00:00 90 09/05/16 23:00 99 09/05/16 23:00 96 Room Air 09/05/16 23:00 98.7 101 20 159/94 96 09/05/16 22:00 88 09/05/16 21:00 87 09/05/16 20:00 89 09/05/16 19:29 95 09/05/16 19:00 98.1 89 18 162/98 96 09/05/16 19:00 95 09/05/16 19:00 96 Room Air 09/05/16 18:00 84 09/05/16 17:00 80 09/05/16 16:00 81 09/05/16 15:45 97.6 84 20 162/98 94 09/05/16 15:45 84 09/05/16 14:00 100 09/05/16 13:00 90 CBC/BMP: 09/04/16 1516 09/02/16 0421 Lab Results Laboratory Tests Test 09/06/16 05:05 Prothrombin Time 37.6 SEC Prothromb Time International 3.2 RATIO Ratio Physical Exam General General Appearance: No Acute Distress, Comfortable, Anxious Eyes Eye Exam: Pupils Equal, Sclera White, Extraocular Movement Intact Ears & Nose Ears & Nose Exam: Nasal Mucosa [place] Throat Throat Exam: Oral Mucosa [place] & Moist Neck Neck Exam: Neck Supple, Trachea Midline Pulmonary Resp Exam: Breath Sounds Equal, No Distress, Rhonchi Resp Remarks occ expiratory rhonchi Cardiology CV Exam: Regular, Normal Sinus Rhythm Gastrointestinal/Abdomen GI Exam: Soft, Non-Tender, Bowel Sounds Present Musculoskeletal MS Remarks Right hip incision looks okay, no sig drainage at this time Integumentary Skin Exam: Warm, Dry Extremeties Extremities Exam: No Edema, Pedal Pulses Palpable Neurologic Neuro Exam: Alert, Awake, Oriented, Speech Clear, Moving All Extremities Psychiatric Psych Exam: Appropriate Responses PUD Prophylasis PUD Prophylaxis: Protonix Assessment/Plan Assessment/Plan Assessment and Plan 1. Acute asthma/ COPD exacerbation with respiratory failure/insufficiency on admission. 2. S/P Coumadin toxicity. 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 4. Tachycardia. 5. Hypertension. 6. History of depression and anxiety. 7. History of DVT and PE. 8. Arthritis. 9. History of hyperlipidemia. 10. Gastroesophageal reflux disease (GERD). PLAN: Continue oxygen , keep saturation above 92%. IV steroid Aerosol treatment qid & q2 hrs prn cont Symbicort twice daily Continue Singulair Antitussives when necessary Start Xanax 0.25 by mouth 3 times a day when necessary po ceftin bid IV micafungin / and Diflucan Orthopedic input appreciated/ cleared for discharge by them Analgesics Wound care Hold Coumadin today, f/u INR Follow H&H cont Cardizem Proton pump inhibitor for GI prophylaxis. Discussed with Dr. Emerson, he is repeating CXR Discussed with patient again Will follow Alvin Sandoval MD Sep 06, 2016 12:45
[2016-09-06] MEDS: cloNIDine HCL 0.1 MG TAB PO PRN (15:12)
[2016-09-06] MEDS ORDERED: ALPRAZolam 0.25 MG TAB PO PRN (16:15)
[2016-09-06] MEDS: FUROSEMIDE 20 MG TAB PO SCH (18:03)
--- NOTE | 2016-09-06 18:09 | HHI.PR ---
Subjective Remarks C/O SOB and had an asthmatic attack again today. On O2 2L.On solumedrol 40 mg q8h. No chest pain. Chest X ray is clear Objective Vital Signs Date Time Temp Pulse Resp B/P Pulse Ox O2 Delivery O2 Flow Rate FiO2 09/06/16 16:01 81 09/06/16 15:30 95 Room Air 09/06/16 15:30 98.0 86 18 156/102 95 09/06/16 15:00 97 09/06/16 14:00 88 09/06/16 13:28 18 09/06/16 13:00 98 09/06/16 12:00 95 09/06/16 12:00 98.0 92 18 169/94 98 09/06/16 12:00 95 Room Air 09/06/16 11:00 121 09/06/16 10:00 98 09/06/16 09:00 114 09/06/16 09:00 18 09/06/16 08:39 95 21 09/06/16 08:01 97.6 93 18 153/91 94 09/06/16 08:01 94 Room Air 09/06/16 08:01 88 09/06/16 07:00 76 09/06/16 06:00 85 09/06/16 05:00 80 09/06/16 04:00 79 09/06/16 03:00 83 09/06/16 03:00 95 Room Air 09/06/16 03:00 98.0 97 18 151/87 95 09/06/16 02:00 89 09/06/16 01:00 84 09/06/16 00:00 90 09/05/16 23:00 99 09/05/16 23:00 96 Room Air 09/05/16 23:00 98.7 101 20 159/94 96 09/05/16 22:00 88 09/05/16 21:00 87 09/05/16 20:00 89 09/05/16 19:29 95 09/05/16 19:00 98.1 89 18 162/98 96 09/05/16 19:00 95 09/05/16 19:00 96 Room Air I/O 09/05/16 09/05/16 09/05/16 09/06/16 09/06/16 09/06/16 07:00 15:00 23:00 07:00 15:00 23:00 Intake Total 1685 ml 1528 ml 1232 ml Output Total 2275 ml 800 ml 2300 ml Balance -590 ml 728 ml -1068 ml Intake Oral 480 ml 840 ml 480 ml IV Total 1205 ml 688 ml 752 ml Output Urine Total 2275 ml 800 ml 2300 ml # Bowel Movements 0 0 0 Result Diagram: 09/04/16 1516 09/02/16 0421 Objective Remarks GENERAL: Mid aged W/M is alert.No distress. HEENT: Exam unremarkable. Eyes without icterus. Throat clear NECK: Without adenopathy or thyroid enlargement. Central trachea. CHEST: Decreased breath sounds. Scattered end-expiratory wheeze on auscultation.No crackles. CARDIAC: PMI distant. S1, S2 audible. No murmur or rub. ABDOMEN: Lax. Bowel sounds audible. EXTREMITIES: No clubbing, cyanosis or edema.Right hip dressing. Assessment and Plan Assessment and Plan IMPRESSION 1. Asthma exacerbation. 2. Hypertension. 3. Status post DVT/PE. 4. Status post septic arthritis, right hip. 5. Anxiety/depression. Plan : 1. O2 at 2L.PRN. 2. Nebs qid , duoneb. 3. Cont Antibiotics per ID. 4. Cont Solumedrol 40 mg IV q8h. 5. IS and Acapella at bedside 6. Cont Symbicort 160/4.5 mcg . 2 puffs bid Ashok Valdes MD Sep 06, 2016 18:09
[2016-09-06] MEDS: MONTELUKAST SODIUM 10 MG TAB PO SCH (21:44)
[2016-09-06] MEDS: POTASSIUM CHLORIDE 10 MEQ CONTROLLED RELEASE TAB PO SCH (21:44)
[2016-09-06] MEDS: ATORVASTATIN 20 MG TAB PO SCH (21:44)
[2016-09-06] MEDS: RESP: LEVALBUTEROL HYDROCHLORIDE 1.25 MG/3 ML NEB (PRN) NEB (22:01)
[2016-09-06 22:10] LABS: BLOOD, URINE NEG (NEG); COMMENT (UR) CULT NOT INDICATED; CULTURE IF INDICATED CULT NOT INDICATED; GLUCOSE,URINE 300 mg/dL (NEG); KETONE, URINE NEG (NEG); MUCUS URINE FEW /lpf (OCC); NITRITE,URINE NEG (NEG); URINE COLOR LIGHT-YELLOW (YELLW/STRAW)
[2016-09-06] MEDS: MICAFUNGIN INJ 150 MG in SODIUM CHLORIDE 0.9% INJ 100 ML IV SCH (22:32)
[2016-09-07] VITALS (14 sets, daily range): BP systolic 157–196; BP diastolic 93–110; PULSE 83–115; RESP 20–30; TEMP 97.8–98.5; O2SAT 97–98
[2016-09-07] MEDS: PROMETHAZINE/CODEINE 6.25 MG/10 MG/5 ML CUP PO PRN (00:49)
[2016-09-07] MEDS: RESP: ALBUTEROL 2.5 MG/3 ML NEB (PRN) NEB (01:12)
[2016-09-07] MEDS ORDERED: methylPREDNISolone SOD SUCC 125 MG/2 ML VIAL IV PUSH ONE (02:45)
[2016-09-07] MEDS: HYDROmorphone HCL PF 1 MG/ML VIAL IV PRN ×3 (02:49→23:22)
[2016-09-07] MEDS: RESP: LEVALBUTEROL HYDROCHLORIDE 1.25 MG/3 ML NEB (PRN) NEB (03:10)
[2016-09-07 03:45] LABS: BLOOD GAS BASE EXCESS -0.7 mmol/L (-2-2); BLOOD GAS CARBOXYHEMOGLOBIN 1.9 % (0-4); BLOOD GAS HCO3 23 mmol/L (22-26); BLOOD GAS METHEMOGLOBIN 1.2 % (0-2); BLOOD GAS O2 HGB SATURATION 97 % (90-100); BLOOD GAS OXYGEN CONTENT 15.4 Vol % (12.0-20.0); BLOOD GAS PCO2 34 mmHg (38-42); BLOOD GAS PO2 174 mmHg (61-120); CRITICAL VALUE NO; FIO2 21 %; OXYGEN DEVICE ROOM AIR; TEMP CORR TO 98.6
[2016-09-07] MEDS ORDERED: RESP: RACEPINEPHRINE 2.25% 0.5 ML NEB NEB SCH (03:45)
[2016-09-07 03:46] LABS: DRAW SITE RT RADIAL; NUMBER OF ARTERIAL PUNCTURES 1; STAT YES; ULNAR PULSE PRESENT
[2016-09-07] MEDS: cloNIDine HCL 0.1 MG TAB PO PRN ×2 (03:47→23:22)
[2016-09-07] MEDS: methylPREDNISolone SOD SUCC 40 MG/1 ML VIAL IV PUSH SCH ×3 (05:34→21:08)
[2016-09-07] MEDS: SUCRALFATE 1 GM TAB PO SCH ×3 (07:50→18:24)
[2016-09-07] MEDS: RESP: ALBUTEROL 2.5 MG/IPRATROPIUM 0.5 MG NEB (SCH) NEB ×4 (07:51→20:02)
[2016-09-07 08:01] LABS: HEMATOCRIT 32.5 % (39.0-51.0); MEAN CELL VOLUME 75.5 FL (80.0-100.0); MEAN CORPUSCULAR HEMOGLOBIN 23.7 PG (27.0-34.0); MEAN CORPUSCULAR HGB CONC 31.3 % (32.0-36.0); PLATELET COUNT 207 TH/MM3 (150-450); RED CELL DISTRIBUTION WIDTH 22.8 % (11.6-17.2)
[2016-09-07 08:04] LABS: REVIEW FLAG FINAL
[2016-09-07 08:09] LABS: INTERNATIONAL NORMALIZED RATIO 4.2 RATIO; PROTHROMBIN TIME - PATIENT 49.9 SEC (9.8-11.6)
[2016-09-07 08:32] LABS: POTASSIUM 3.7 MEQ/L (3.5-5.1)
[2016-09-07] MEDS: BUDESONIDE-FORMOTEROL 160/4.5 MCG INHALER INH SCH ×2 (08:43→20:35)
[2016-09-07] MEDS: PANTOPRAZOLE SOD 40 MG DELAYED RELEASE TAB PO SCH (08:45)
[2016-09-07] MEDS: SODIUM CHLORIDE 0.9% FLUSH 5 ML FLUSH FLUSH SCH ×2 (08:45→21:06)
[2016-09-07] MEDS: FLUCONAZOLE 200 MG TAB PO SCH (08:45)
[2016-09-07] MEDS: CEFUROXIME AXETIL 500 MG TAB PO SCH ×2 (08:45→13:26)
[2016-09-07] MEDS: DILTIAZEM-CD 180 MG CAP ER PO SCH (08:46)
[2016-09-07] MEDS: LORazepam 0.5 MG TAB PO SCH ×2 (08:46→20:33)
[2016-09-07] MEDS: POTASSIUM CHLORIDE 10 MEQ CONTROLLED RELEASE TAB PO SCH ×2 (08:46→20:33)
[2016-09-07] MEDS: FUROSEMIDE 20 MG TAB PO SCH ×2 (08:46→18:24)
[2016-09-07] MEDS: ACETAMINOPHEN/HYDROcodone 325 MG/7.5 MG TAB PO PRN ×2 (13:27→20:32)
--- NOTE | 2016-09-07 15:15 | HHI.PR ---
Subjective Remarks C/O SOB and had an asthmatic attack again last PM. On O2 2L.On solumedrol 40 mg q8h. No chest pain. Chest X ray is clear. Seems to get anxious easy. Sugars are high Objective Vital Signs Date Time Temp Pulse Resp B/P Pulse Ox O2 Delivery O2 Flow Rate FiO2 09/07/16 11:00 98.5 84 20 165/96 98 09/07/16 11:00 84 09/07/16 11:00 97 Nasal Cannula 2.00 09/07/16 07:55 97 Nasal Cannula 2.00 09/07/16 07:00 97 Nasal Cannula 2.00 09/07/16 07:00 85 09/07/16 07:00 97.8 85 22 157/110 97 09/07/16 04:00 115 09/07/16 03:54 98 Nasal Cannula 2.00 09/07/16 03:40 98 Nasal Cannula 2.00 09/07/16 03:40 98.2 111 30 196/103 98 09/07/16 03:00 111 09/07/16 02:53 102 09/07/16 01:00 89 09/07/16 00:42 94 Room Air 09/07/16 00:00 89 09/06/16 23:50 97.9 84 16 154/92 97 09/06/16 23:00 89 09/06/16 22:00 89 09/06/16 21:00 89 09/06/16 20:32 94 Room Air 09/06/16 20:20 97.0 65 16 134/91 94 09/06/16 20:00 88 09/06/16 19:34 96 21 09/06/16 18:00 89 09/06/16 17:00 77 09/06/16 16:01 81 09/06/16 15:30 95 Room Air 09/06/16 15:30 98.0 86 18 156/102 95 I/O 09/06/16 09/06/16 09/06/16 09/07/16 09/07/16 09/07/16 07:00 15:00 23:00 07:00 15:00 23:00 Intake Total 1232 ml 2241 ml 1720 ml Output Total 2300 ml 1600 ml 3175 ml Balance -1068 ml 641 ml -1455 ml Intake Oral 480 ml 960 ml 1120 ml IV Total 752 ml 1281 ml 600 ml Output Urine Total 2300 ml 1600 ml 3175 ml # Voids 5 # Bowel Movements 0 0 Result Diagram: 09/07/1610 09/07/16709 Objective Remarks GENERAL: Mid aged W/M is alert.No distress. HEENT: Exam unremarkable. Eyes without icterus. Throat clear NECK: Without adenopathy or thyroid enlargement. Central trachea. CHEST: Decreased breath sounds. Bilateral end-expiratory wheeze on auscultation.No crackles. CARDIAC: PMI distant. S1, S2 audible. No murmur or rub. ABDOMEN: Lax. Bowel sounds audible. EXTREMITIES: No clubbing, cyanosis but has 1 + edema.Right hip dressing. Assessment and Plan Assessment and Plan IMPRESSION 1. Asthma exacerbation. 2. Hypertension. 3. Status post DVT/PE. 4. Status post septic arthritis, right hip. 5. Anxiety/depression. Plan : 1. O2 at 2L.PRN. 2. Nebs qid , duoneb. 3. Cont Antibiotics per ID. 4. Cont Solumedrol 40 mg IV q8h. 5. IS and Acapella at bedside 6. Cont Symbicort 160/4.5 mcg . 2 puffs bid 7. Xanax .25 mg q4h PRN 8. Add theodur 200 mg bid. Ashok Valdes MD Sep 07, 2016 15:15
--- NOTE | 2016-09-07 15:36 | HHI.PR ---
Subjective History of Present Illness Patient became short of breath and hypoxemic last night Was transferred to ICU Currently sitting up still short of breath Still very tight Wheezing a lot Cough is better ,no sputum No chest pain No fever or chills No nausea or vomiting Good appetite Right hip is not draining Right hip pain is in control Offers no other complaints is at bedside Vitals/Results Intake & Output 09/06/16 09/06/16 09/07/16 15:00 23:00 07:00 Intake Total 2241 ml 1720 ml Output Total 1600 ml 3175 ml Balance 641 ml -1455 ml Intake Oral 960 ml 1120 ml IV Total 1281 ml 600 ml Output Urine Total 1600 ml 3175 ml # Voids 5 # Bowel Movements 0 Vital Signs Vital Signs Date Time Temp Pulse Resp B/P Pulse Ox O2 Delivery O2 Flow Rate FiO2 09/07/16 11:00 98.5 84 20 165/96 98 09/07/16 11:00 84 09/07/16 11:00 97 Nasal Cannula 2.00 09/07/16 07:55 97 Nasal Cannula 2.00 09/07/16 07:00 97 Nasal Cannula 2.00 09/07/16 07:00 85 09/07/16 07:00 97.8 85 22 157/110 97 09/07/16 04:00 115 09/07/16 03:54 98 Nasal Cannula 2.00 09/07/16 03:40 98 Nasal Cannula 2.00 09/07/16 03:40 98.2 111 30 196/103 98 09/07/16 03:00 111 09/07/16 02:53 102 09/07/16 01:00 89 09/07/16 00:42 94 Room Air 09/07/16 00:00 89 09/06/16 23:50 97.9 84 16 154/92 97 09/06/16 23:00 89 09/06/16 22:00 89 09/06/16 21:00 89 09/06/16 20:32 94 Room Air 09/06/16 20:20 97.0 65 16 134/91 94 09/06/16 20:00 88 09/06/16 19:34 96 21 09/06/16 18:00 89 09/06/16 17:00 77 09/06/16 16:01 81 CBC/BMP: 09/07/16 0710 09/07/16 0710 Lab Results Laboratory Tests Test 09/06/16 09/07/16 09/07/16 21:40 03:33 07:10 Urine Color LIGHT-YELLOW Urine Turbidity CLEAR Urine pH 6.0 Urine Specific [place] 1.004 Urine Protein NEG mg/dL Urine Glucose (UA) 300 mg/dL Urine Ketones NEG mg/dL Urine Occult Blood NEG Urine Nitrite NEG Urine Bilirubin NEG Urine Urobilinogen LESS THAN 2.0 MG/DL Urine Leukocyte Esterase NEG Urine WBC LESS THAN 1 /hpf Urine Mucus FEW /lpf Microscopic Urinalysis Comment CULT NOT INDICATED Blood Gas Puncture Site RT RADIAL Blood Gas Patient Temperature 98.6 Blood Gas HCO3 23 mmol/L Blood Gas Base Excess -0.7 mmol/L Blood Gas Oxygen Saturation 97 % Arterial Blood pH 7.44 Arterial Blood Partial 34 mmHg Pressure CO2 Arterial Blood Partial 174 mmHg Pressure O2 Arterial Blood Oxygen Content 15.4 Vol % Arterial Blood 1.9 % Carboxyhemoglobin Arterial Blood Methemoglobin 1.2 % Blood Gas Hemoglobin 11.0 G/DL Oxygen Delivery Device ROOM AIR Blood Gas Inspired Oxygen 21 % White Blood Count 15.0 TH/MM3 Red Blood Count 4.30 MIL/MM3 Hemoglobin 10.2 GM/DL Hematocrit 32.5 % Mean Corpuscular Volume 75.5 FL Mean Corpuscular Hemoglobin 23.7 PG Mean Corpuscular Hemoglobin 31.3 % Concent Red Cell Distribution Width 22.8 % Platelet Count 207 TH/MM3 Mean Platelet Volume 6.9 FL Prothrombin Time 49.9 SEC Prothromb Time International 4.2 RATIO Ratio Sodium Level 138 MEQ/L Potassium Level 3.7 MEQ/L Chloride Level 99 MEQ/L Carbon Dioxide Level 27.0 MEQ/L Anion Gap 12 MEQ/L Blood Urea Nitrogen 16 MG/DL Creatinine 0.99 MG/DL Estimat Glomerular Filtration 79 ML/MIN Rate Random Glucose 237 MG/DL Calcium Level 8.2 MG/DL Physical Exam General General Appearance: No Acute Distress, Comfortable, Anxious Eyes Eye Exam: Pupils Equal, Sclera White, Extraocular Movement Intact Ears & Nose Ears & Nose Exam: Nasal Mucosa [place] Throat Throat Exam: Oral Mucosa [place] & Moist Neck Neck Exam: Neck Supple, Trachea Midline Pulmonary Resp Exam: Breath Sounds Equal, No Distress, Rhonchi Resp Remarks Scattered bilateral expiratory rhonchi Cardiology CV Exam: Regular, Normal Sinus Rhythm Gastrointestinal/Abdomen GI Exam: Soft, Non-Tender, Bowel Sounds Present Musculoskeletal MS Remarks Right hip incision looks okay, no sig drainage at this time Integumentary Skin Exam: Warm, Dry Extremeties Extremities Exam: No Edema, Pedal Pulses Palpable Neurologic Neuro Exam: Alert, Awake, Oriented, Speech Clear, Moving All Extremities Psychiatric Psych Exam: Appropriate Responses PUD Prophylasis PUD Prophylaxis: Protonix Assessment/Plan Assessment/Plan Assessment and Plan 1. Acute asthma/ COPD exacerbation with respiratory failure/insufficiency on admission. 2. S/P Coumadin toxicity. 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 4. Tachycardia. 5. Hypertension. 6. History of depression and anxiety. 7. History of DVT and PE. 8. Arthritis. 9. History of hyperlipidemia. 10. Gastroesophageal reflux disease (GERD). PLAN: Continue oxygen , keep saturation above 92%. Repeat chest x-ray was negative IV steroid Aerosol treatment qid & q2 hrs prn cont Symbicort twice daily Continue Singulair Theophylline was added Antitussives when necessary Xanax dose increased by pulmonary po ceftin bid IV micafungin / and Diflucan Orthopedic input appreciated/ cleared for discharge by them Analgesics Wound care INR is 4, no active bleeding Continue to hold Coumadin today Discussed newer novel anticoagulant with patient and his , they want to think about it cont Cardizem Proton pump inhibitor for GI prophylaxis. Will follow Alvin Sandoval MD Sep 07, 2016 15:36
[2016-09-07] MEDS: ALPRAZolam 0.25 MG TAB PO PRN ×2 (15:38→20:33)
[2016-09-07] MEDS: MICAFUNGIN INJ 150 MG in SODIUM CHLORIDE 0.9% INJ 100 ML IV SCH (20:00)
[2016-09-07] MEDS: ATORVASTATIN 20 MG TAB PO SCH (20:33)
[2016-09-07] MEDS ORDERED: THEOPHYLLINE ER 12 HR 200 MG TABCR PO SCH (21:00)
[2016-09-07] MEDS: MONTELUKAST SODIUM 10 MG TAB PO SCH (21:07)
[2016-09-08] VITALS (9 sets, daily range): BP systolic 148–169; BP diastolic 83–93; PULSE 76–106; RESP 16–20; TEMP 97.7–98.5; O2SAT 94–100
[2016-09-08] MEDS: RESP: LEVALBUTEROL HYDROCHLORIDE 1.25 MG/3 ML NEB (PRN) NEB ×2 (00:06→03:37)
[2016-09-08] MEDS: methylPREDNISolone SOD SUCC 40 MG/1 ML VIAL IV PUSH SCH ×3 (05:56→21:35)
[2016-09-08] MEDS: RESP: ALBUTEROL 2.5 MG/IPRATROPIUM 0.5 MG NEB (SCH) NEB ×4 (07:11→20:08)
[2016-09-08] MEDS: SODIUM CHLORIDE 0.9% FLUSH 5 ML FLUSH FLUSH SCH ×2 (07:48→21:36)
[2016-09-08] MEDS: LORazepam 0.5 MG TAB PO SCH ×2 (07:50→21:35)
[2016-09-08] MEDS: POTASSIUM CHLORIDE 10 MEQ CONTROLLED RELEASE TAB PO SCH ×2 (07:51→21:35)
[2016-09-08] MEDS: CEFUROXIME AXETIL 500 MG TAB PO SCH ×2 (07:51→21:35)
[2016-09-08] MEDS: FLUCONAZOLE 200 MG TAB PO SCH (07:51)
[2016-09-08] MEDS: THEOPHYLLINE 200 MG EXTENDED RELEASE CAP PO SCH (07:51)
[2016-09-08] MEDS: FUROSEMIDE 20 MG TAB PO SCH (07:52)
[2016-09-08] MEDS: SUCRALFATE 1 GM TAB PO SCH ×3 (07:52→16:45)
[2016-09-08] MEDS: DILTIAZEM-CD 180 MG CAP ER PO SCH (07:52)
[2016-09-08] MEDS: PANTOPRAZOLE SOD 40 MG DELAYED RELEASE TAB PO SCH (07:52)
[2016-09-08] MEDS: BUDESONIDE-FORMOTEROL 160/4.5 MCG INHALER INH SCH ×2 (07:54→21:36)
[2016-09-08] MEDS: RESP: ALBUTEROL 2.5 MG/3 ML NEB (PRN) NEB (10:01)
[2016-09-08] MEDS: ACETAMINOPHEN/HYDROcodone 325 MG/7.5 MG TAB PO PRN ×3 (10:28→21:38)
--- NOTE | 2016-09-08 14:10 | HHI.PR ---
Subjective History of Present Illness still get short of breath w min activity Still very tight/ Wheezing a lot Cough is better ,no sputum No chest pain No fever or chills No nausea or vomiting Good appetite Right hip is not draining Right hip pain is in control Offers no other complaints is at bedside again Vitals/Results Intake & Output 09/07/16 09/07/16 09/08/16 14:59 22:59 06:59 Intake Total 1620 ml 580 ml Output Total 1500 ml 1800 ml Balance 120 ml -1220 ml Intake Oral 1620 ml 480 ml IV Total 0 ml 100 ml Output Urine Total 1500 ml 1800 ml # Bowel Movements 0 0 Vital Signs Vital Signs Date Time Temp Pulse Resp B/P Pulse Ox O2 Delivery O2 Flow Rate FiO2 09/08/16 12:00 98.4 102 20 148/88 97 09/08/16 12:00 102 09/08/16 12:00 97 Nasal Cannula 2.00 09/08/16 11:28 20 09/08/16 08:00 97 Nasal Cannula 2.00 09/08/16 08:00 97.7 76 20 169/89 97 09/08/16 08:00 76 09/08/16 07:11 100 Nasal Cannula 2.00 09/08/16 03:00 97.9 82 16 160/93 97 09/08/16 03:00 80 09/08/16 03:00 97 Nasal Cannula 2.00 09/07/16 23:00 98.1 93 20 169/93 98 09/07/16 23:00 95 09/07/16 23:00 98 Nasal Cannula 2.00 09/07/16 20:04 97 Nasal Cannula 2.00 09/07/16 19:00 92 09/07/16 19:00 97.9 92 20 163/95 98 09/07/16 19:00 98 Nasal Cannula 2.00 09/07/16 15:00 98.0 83 22 163/95 98 09/07/16 15:00 98 Nasal Cannula 2.00 09/07/16 15:00 83 CBC/BMP: 09/07/16 0710 09/07/16 0710 Physical Exam General General Appearance: No Acute Distress, Comfortable, Anxious Eyes Eye Exam: Pupils Equal, Sclera White, Extraocular Movement Intact Ears & Nose Ears & Nose Exam: Nasal Mucosa [place] Throat Throat Exam: Oral Mucosa [place] & Moist Neck Neck Exam: Neck Supple, Trachea Midline Pulmonary Resp Exam: Breath Sounds Equal, No Distress, Rhonchi Resp Remarks Scattered bilateral expiratory rhonchi Cardiology CV Exam: Regular, Normal Sinus Rhythm Gastrointestinal/Abdomen GI Exam: Soft, Non-Tender, Bowel Sounds Present Musculoskeletal MS Remarks Right hip incision looks okay, no sig drainage at this time Integumentary Skin Exam: Warm, Dry Extremeties Extremities Exam: No Edema, Pedal Pulses Palpable, Moderate Edema Neurologic Neuro Exam: Alert, Awake, Oriented, Speech Clear, Moving All Extremities Psychiatric Psych Exam: Appropriate Responses PUD Prophylasis PUD Prophylaxis: Protonix Assessment/Plan Assessment/Plan Assessment and Plan 1. Acute asthma/ COPD exacerbation with respiratory failure/insufficiency on admission. 2. S/P Coumadin toxicity. 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 4. Tachycardia. 5. Hypertension. 6. History of depression and anxiety. 7. History of DVT and PE. 8. Arthritis. 9. History of hyperlipidemia. 10. Gastroesophageal reflux disease (GERD). PLAN: Continue oxygen , keep saturation above 92%. IV steroid Aerosol treatment qid & q2 hrs prn cont Symbicort twice daily Continue Singulair Theophylline was added Antitussives when necessary inc Xanax dose 0.5 q 8 hr inc lasix 40 mg bid po ceftin bid IV micafungin / and Diflucan Analgesics Wound care hold coumadin , f/u INR Continue to hold Coumadin today cont Cardizem Proton pump inhibitor for GI prophylaxis. d/w Dr Pitt d/w PT & his Will follow Alvin Sandoval MD Sep 08, 2016 14:10 Alvin Sandoval MD Sep 08, 2016 14:10 Will follow Alvin Sandoval MD Sep 08, 2016 14:10
[2016-09-08] MEDS ORDERED: GLUCAGON 1 MG/ML VIAL OTHER PRN (14:30)
[2016-09-08] MEDS ORDERED: DEXTROSE 50% IN WATER 50 ML VIAL(D50) IV PUSH PRN (14:30)
--- NOTE | 2016-09-08 15:39 | HHI.PR ---
Subjective Remarks Less SOB but had an asthmatic attack again last PM. On O2 2L.On solumedrol 40 mg q8h. No chest pain. Chest X ray is clear. Seems to get anxious easy. On Theodur Objective Vital Signs Date Time Temp Pulse Resp B/P Pulse Ox O2 Delivery O2 Flow Rate FiO2 09/08/16 12:00 98.4 102 20 148/88 97 09/08/16 12:00 102 09/08/16 12:00 97 Nasal Cannula 2.00 09/08/16 11:28 20 09/08/16 08:00 97 Nasal Cannula 2.00 09/08/16 08:00 97.7 76 20 169/89 97 09/08/16 08:00 76 09/08/16 07:11 100 Nasal Cannula 2.00 09/08/16 03:00 97.9 82 16 160/93 97 09/08/16 03:00 80 09/08/16 03:00 97 Nasal Cannula 2.00 09/07/16 23:00 98.1 93 20 169/93 98 09/07/16 23:00 95 09/07/16 23:00 98 Nasal Cannula 2.00 09/07/16 20:04 97 Nasal Cannula 2.00 09/07/16 19:00 92 09/07/16 19:00 97.9 92 20 163/95 98 09/07/16 19:00 98 Nasal Cannula 2.00 I/O 09/07/16 09/07/16 09/07/16 09/08/16 09/08/16 09/08/16 06:59 14:59 22:59 06:59 14:59 22:59 Intake Total 1720 ml 1620 ml 580 ml Output Total 3175 ml 1500 ml 1800 ml Balance -1455 ml 120 ml -1220 ml Intake Oral 1120 ml 1620 ml 480 ml IV Total 600 ml 0 ml 100 ml Output Urine Total 3175 ml 1500 ml 1800 ml # Bowel Movements 0 0 Result Diagram: 09/07/16 0710 09/07/16 0710 Objective Remarks GENERAL: Mid aged W/M is alert.No distress. HEENT: Exam unremarkable. Eyes without icterus. Throat clear NECK: Without adenopathy or thyroid enlargement. Central trachea. CHEST: Decreased breath sounds. Bilateral end-expiratory wheeze on auscultation.No crackles. CARDIAC: PMI distant. S1, S2 audible. No murmur or rub. ABDOMEN: No mass. Bowel sounds audible. EXTREMITIES: No clubbing, cyanosis but has 1 + edema.Right hip dressing. Assessment and Plan Assessment and Plan IMPRESSION 1. Asthma exacerbation. 2. Hypertension. 3. Status post DVT/PE. 4. Status post septic arthritis, right hip. 5. Anxiety/depression. Plan : 1. O2 at 2L.PRN. 2. Nebs qid , duoneb. 3. Cont Antibiotics per ID. 4. Solumedrol 40 mg IV q8h. 5. IS and Acapella at bedside 6. Cont Symbicort 160/4.5 mcg . 2 puffs bid 7. Xanax .25 mg q4h PRN 8. Cont theodur 200 mg bid. 9. Samuel level in am Ashok Valdes MD Sep 08, 2016 15:39
[2016-09-08] MEDS: INSULIN ASPART SUPPLEMENTAL SCALE SQ SCH ×2 (16:34→22:38)
[2016-09-08] MEDS: FUROSEMIDE 40 MG TAB PO SCH (18:17)
[2016-09-08] MEDS: ONDANSETRON HCL 4 MG/2 ML VIAL IVP PRN (18:47)
[2016-09-08] MEDS ORDERED: PROMETHAZINE INJ 25 MG/ML VIAL ONE (19:25)
[2016-09-08] MEDS: MONTELUKAST SODIUM 10 MG TAB PO SCH (21:00)
[2016-09-08] MEDS: MICAFUNGIN INJ 150 MG in SODIUM CHLORIDE 0.9% INJ 100 ML IV SCH (21:34)
[2016-09-08] MEDS: ATORVASTATIN 20 MG TAB PO SCH (21:35)
[2016-09-08] MEDS: PROMETHAZINE INJ 25 MG/ML VIAL IM PRN (21:40)
[2016-09-09] VITALS (11 sets, daily range): BP systolic 150–178; BP diastolic 78–98; PULSE 85–103; RESP 17–20; TEMP 97.9–98.7; O2SAT 94–98
[2016-09-09] MEDS: RESP: LEVALBUTEROL HYDROCHLORIDE 1.25 MG/3 ML NEB (PRN) NEB ×3 (00:01→20:24)
[2016-09-09] MEDS: HYDROmorphone HCL PF 1 MG/ML VIAL IV PRN (04:19)
[2016-09-09] MEDS: ALPRAZolam 0.5 MG TAB PO PRN (04:20)
[2016-09-09 04:53] LABS: INTERNATIONAL NORMALIZED RATIO 3.1 RATIO; PROTHROMBIN TIME - PATIENT 36.1 SEC (9.8-11.6)
[2016-09-09 04:54] LABS: POTASSIUM 3.9 MEQ/L (3.5-5.1); THEOPHYLLINE 4.9 MCG/ML (10.0-20.0)
[2016-09-09] MEDS: cloNIDine HCL 0.1 MG TAB PO PRN (05:21)
[2016-09-09] MEDS: methylPREDNISolone SOD SUCC 40 MG/1 ML VIAL IV PUSH SCH ×3 (05:22→23:30)
[2016-09-09] MEDS: INSULIN ASPART SUPPLEMENTAL SCALE SQ SCH ×4 (06:29→21:00)
[2016-09-09] MEDS: RESP: ALBUTEROL 2.5 MG/IPRATROPIUM 0.5 MG NEB (SCH) NEB ×3 (07:38→15:26)
[2016-09-09] MEDS: THEOPHYLLINE 200 MG EXTENDED RELEASE CAP PO SCH (09:00)
[2016-09-09] MEDS: DILTIAZEM-CD 180 MG CAP ER PO SCH (09:00)
[2016-09-09] MEDS: FLUCONAZOLE 200 MG TAB PO SCH (09:00)
[2016-09-09] MEDS: BUDESONIDE-FORMOTEROL 160/4.5 MCG INHALER INH SCH ×2 (09:00→20:51)
[2016-09-09] MEDS: PANTOPRAZOLE SOD 40 MG DELAYED RELEASE TAB PO SCH (09:00)
[2016-09-09] MEDS: POTASSIUM CHLORIDE 10 MEQ CONTROLLED RELEASE TAB PO SCH ×2 (09:00→20:50)
[2016-09-09] MEDS: LORazepam 0.5 MG TAB PO SCH ×2 (09:00→20:50)
[2016-09-09] MEDS: SODIUM CHLORIDE 0.9% FLUSH 5 ML FLUSH FLUSH SCH ×2 (09:00→20:51)
[2016-09-09] MEDS: SUCRALFATE 1 GM TAB PO SCH ×3 (09:00→16:43)
[2016-09-09] MEDS: CEFUROXIME AXETIL 500 MG TAB PO SCH ×2 (09:00→20:50)
[2016-09-09] MEDS: FUROSEMIDE 40 MG TAB PO SCH (09:00)
--- NOTE | 2016-09-09 11:48 | HHI.PR ---
Subjective Remarks Less SOB .Some wheeze heard. On O2 2L.On solumedrol 40 mg q8h. No chest pain. Chest X ray is clear. Seems to get anxious easy. Objective Vital Signs Date Time Temp Pulse Resp B/P Pulse Ox O2 Delivery O2 Flow Rate FiO2 09/09/16 11:17 98.2 91 18 156/96 97 09/09/16 11:17 99 09/09/16 07:57 97 Nasal Cannula 2.00 09/09/16 07:56 85 09/09/16 07:50 98.0 99 20 172/78 94 09/09/16 07:39 96 Nasal Cannula 2.00 09/09/16 04:00 97.9 96 18 178/93 97 09/09/16 03:00 97 Nasal Cannula 2.00 09/09/16 03:00 89 09/08/16 23:00 98 09/08/16 23:00 98 Nasal Cannula 2.00 09/08/16 23:00 98.1 91 20 161/91 97 09/08/16 20:15 98 Nasal Cannula 2.00 09/08/16 20:00 98.0 89 20 150/83 97 09/08/16 19:00 97 Nasal Cannula 2.00 09/08/16 19:00 94 09/08/16 16:00 106 09/08/16 16:00 94 Nasal Cannula 2.00 09/08/16 16:00 98.5 106 20 156/87 94 09/08/16 12:00 98.4 102 20 148/88 97 09/08/16 12:00 102 09/08/16 12:00 97 Nasal Cannula 2.00 I/O 09/08/16 09/08/16 09/08/16 09/09/16 09/09/16 09/09/16 07:00 15:00 23:00 07:00 15:00 23:00 Intake Total 580 ml 1140 ml 820 ml Output Total 1800 ml 1375 ml 2000 ml Balance -1220 ml -235 ml -1180 ml Intake Oral 480 ml 1140 ml 720 ml IV Total 100 ml 100 ml Output Urine Total 1800 ml 1375 ml 2000 ml # Bowel Movements 0 1 0 Result Diagram: 09/07/16 0710 09/09/16 0415 Objective Remarks GENERAL: Mid aged W/M is alert.No distress. HEENT: Exam unremarkable. Eyes without icterus. Throat clear NECK: Without adenopathy or thyroid enlargement. Central trachea. CHEST: Decreased breath sounds. Bilateral end-expiratory wheeze on auscultation.No crackles. CARDIAC: PMI distant. S1, S2 audible. No murmur or rub. ABDOMEN: No mass. Bowel sounds audible. EXTREMITIES: No clubbing, cyanosis but has 2 + edema. Assessment and Plan Assessment and Plan IMPRESSION 1. Asthma exacerbation. 2. Hypertension. 3. Status post DVT/PE. 4. Status post septic arthritis, right hip. 5. Anxiety/depression. Plan : 1. O2 at 2L. 2. Nebs qid , duoneb. 3. Cont Antibiotics per ID. 4. Solumedrol 40 mg IV q8h. 5. IS and Acapella at bedside 6. Cont Symbicort 160/4.5 mcg . 2 puffs bid 7. Xanax .25 mg q4h PRN 8. Cont theodur 200 mg bid. 9. Lasix 40 mg BID. 10. CBC,BMP in am Ashok Valdes MD Sep 09, 2016 11:48
--- NOTE | 2016-09-09 12:20 | HHI.PR ---
Subjective History of Present Illness Patient feeling weak and tired still wheezing have sever extremity edema and high BP on cardene gtt Started lasix 40 mg IV BID. D/W RN at bed side. Review of Systems Constitutional Constitutional: Fatigue, Weakness Pulmonary Respiratory: Coughing, Shortness of Breath, Wheezing Cardiology CV Remarks extremity edema. Allergic/Immunologic Allergic/Immunologic: Asthma Vitals/Results Intake & Output 09/08/16 09/08/16 09/09/16 15:00 23:00 07:00 Intake Total 1140 ml 820 ml Output Total 1375 ml 2000 ml Balance -235 ml -1180 ml Intake Oral 1140 ml 720 ml IV Total 100 ml Output Urine Total 1375 ml 2000 ml # Bowel Movements 1 0 Vital Signs Vital Signs Date Time Temp Pulse Resp B/P Pulse Ox O2 Delivery O2 Flow Rate FiO2 09/09/16 11:49 98 Nasal Cannula 2.00 09/09/16 11:17 98.2 91 18 156/96 97 09/09/16 11:17 99 09/09/16 07:57 97 Nasal Cannula 2.00 09/09/16 07:56 85 09/09/16 07:50 98.0 99 20 172/78 94 09/09/16 07:39 96 Nasal Cannula 2.00 09/09/16 04:00 97.9 96 18 178/93 97 09/09/16 03:00 97 Nasal Cannula 2.00 09/09/16 03:00 89 09/08/16 23:00 98 09/08/16 23:00 98 Nasal Cannula 2.00 09/08/16 23:00 98.1 91 20 161/91 97 09/08/16 20:15 98 Nasal Cannula 2.00 09/08/16 20:00 98.0 89 20 150/83 97 09/08/16 19:00 97 Nasal Cannula 2.00 09/08/16 19:00 94 09/08/16 16:00 106 09/08/16 16:00 94 Nasal Cannula 2.00 09/08/16 16:00 98.5 106 20 156/87 94 CBC/BMP: 09/07/16 0710 09/09/16 0415 Lab Results Laboratory Tests Test 09/09/16 04:15 Prothrombin Time 36.1 SEC Prothromb Time International 3.1 RATIO Ratio Sodium Level 135 MEQ/L Potassium Level 3.9 MEQ/L Chloride Level 96 MEQ/L Carbon Dioxide Level 30.0 MEQ/L Anion Gap 9 MEQ/L Blood Urea Nitrogen 19 MG/DL Creatinine 1.00 MG/DL Estimat Glomerular Filtration 78 ML/MIN Rate Random Glucose 189 MG/DL Calcium Level 8.1 MG/DL Theophylline Level 4.9 MCG/ML Physical Exam General General Appearance: Well Developed, Well Nourished, No Acute Distress, Comfortable, Anxious Eyes Eye Exam: Pupils Equal, Sclera White, Extraocular Movement Intact Ears & Nose Ears & Nose Exam: Nasal Mucosa [place] Throat Throat Exam: Oral Mucosa [place] & Moist Neck Neck Exam: Neck Supple, Trachea Midline Pulmonary Resp Exam: Breath Sounds Equal, No Distress, Rhonchi Cardiology CV Exam: Regular, Normal Sinus Rhythm Gastrointestinal/Abdomen GI Exam: Soft, Non-Tender, Bowel Sounds Present Integumentary Skin Exam: Warm, Dry Extremeties Extremities Exam: No Edema, Pedal Pulses Palpable, Moderate Edema, Pitting Edema Neurologic Neuro Exam: Alert, Awake, Oriented, Speech Clear, Moving All Extremities Psychiatric Psych Exam: Appropriate Responses PUD Prophylasis PUD Prophylaxis: Protonix Assessment/Plan Assessment/Plan Assessment and Plan 1. Acute asthma/ COPD exacerbation with respiratory failure/insufficiency on admission. 2. S/P Coumadin toxicity...better. 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 4. Tachycardia. 5. Hypertension. 6. History of depression and anxiety. 7. History of DVT and PE. 8. Arthritis. 9. History of hyperlipidemia. 10. Gastroesophageal reflux disease (GERD). PLAN: Start Lasix 40 mg IV BID. Continue oxygen , keep saturation above 92%. IV steroid Aerosol treatment qid & q2 hrs prn cont Symbicort twice daily Continue Singulair On Theophylline Antitussives when necessary inc Xanax dose 0.5 q 8 hr po ceftin bid IV micafungin / and Diflucan Analgesics Wound care hold coumadin , f/u INR Continue to hold Coumadin today cont Cardizem Proton pump inhibitor for GI prophylaxis. d/w PT Will follow Check CBC with diff CMP in AM. Discussed Condition with: Patient Myron Woodward MD Sep 09, 2016 12:19
[2016-09-09 14:10] LABS: INTERNATIONAL NORMALIZED RATIO 2.6 RATIO; PROTHROMBIN TIME - PATIENT 29.5 SEC (9.8-11.6)
[2016-09-09] MEDS: ACETAMINOPHEN/HYDROcodone 325 MG/7.5 MG TAB PO PRN (15:26)
[2016-09-09] MEDS: PROMETHAZINE/CODEINE 6.25 MG/10 MG/5 ML CUP PO PRN (15:26)
[2016-09-09] MEDS: FUROSEMIDE 40 MG/4 ML VIAL IV PUSH SCH (17:09)
[2016-09-09] MEDS: MICAFUNGIN INJ 150 MG in SODIUM CHLORIDE 0.9% INJ 100 ML IV SCH (20:50)
[2016-09-09] MEDS: ATORVASTATIN 20 MG TAB PO SCH (20:50)
[2016-09-09] MEDS: MONTELUKAST SODIUM 10 MG TAB PO SCH (20:50)
[2016-09-10] VITALS (10 sets, daily range): BP systolic 121–163; BP diastolic 81–99; PULSE 93–111; RESP 17–30; TEMP 96.1–98.4; O2SAT 94–99
[2016-09-10] MEDS: RESP: LEVALBUTEROL HYDROCHLORIDE 1.25 MG/3 ML NEB (PRN) NEB ×2 (00:07→04:04)
[2016-09-10 06:05] LABS: AUTOMATED NEUTROPHIL # 13.2 TH/MM3 (1.8-7.7); BASOPHIL % 0.1 % (0.0-2.0); HEMATOCRIT 32.3 % (39.0-51.0); LYMPH % 2.7 % (9.0-44.0); LYMPHOCYTE # 0.4 TH/MM3 (1.0-4.8); MEAN CELL VOLUME 75.1 FL (80.0-100.0); MEAN CORPUSCULAR HEMOGLOBIN 23.2 PG (27.0-34.0); MEAN CORPUSCULAR HGB CONC 30.9 % (32.0-36.0); MONO % 3.4 % (0.0-8.0); NEUT % 93.8 % (16.0-70.0); PLATELET COUNT 159 TH/MM3 (150-450); RED BLOOD COUNT 4.31 MIL/MM3 (4.50-5.90)
[2016-09-10 06:15] LABS: ALKALINE PHOSPHATASE 130 U/L (45-117); ALT (GPT) 178 U/L (12-78); ANION GAP 9 MEQ/L (5-15); AST (GOT) 29 U/L (15-37); BLOOD UREA NITROGEN 23 MG/DL (7-18); CHLORIDE 95 MEQ/L (98-107); GLOMERULAR FILTRATION RATE 89 ML/MIN (>89); POTASSIUM 3.8 MEQ/L (3.5-5.1); SODIUM (NA) 134 MEQ/L (136-145); TOTAL BILIRUBIN ADULT 0.5 MG/DL (0.2-1.0)
[2016-09-10 06:31] LABS: HEMO FLAGS AUTO DIFF
[2016-09-10] MEDS: methylPREDNISolone SOD SUCC 40 MG/1 ML VIAL IV PUSH SCH ×3 (06:45→20:29)
[2016-09-10] MEDS: INSULIN ASPART SUPPLEMENTAL SCALE SQ SCH ×4 (06:46→20:55)
[2016-09-10] MEDS: RESP: ALBUTEROL 2.5 MG/IPRATROPIUM 0.5 MG NEB (SCH) NEB ×4 (07:09→19:58)
[2016-09-10] MEDS: FUROSEMIDE 40 MG/4 ML VIAL IV PUSH SCH ×2 (08:19→17:16)
[2016-09-10] MEDS: THEOPHYLLINE 200 MG EXTENDED RELEASE CAP PO SCH (08:20)
[2016-09-10] MEDS: LORazepam 0.5 MG TAB PO SCH ×2 (08:20→20:29)
[2016-09-10] MEDS: CEFUROXIME AXETIL 500 MG TAB PO SCH ×2 (08:20→20:29)
[2016-09-10] MEDS: DILTIAZEM-CD 180 MG CAP ER PO SCH (08:20)
[2016-09-10] MEDS: SUCRALFATE 1 GM TAB PO SCH ×3 (08:20→16:39)
[2016-09-10] MEDS: PANTOPRAZOLE SOD 40 MG DELAYED RELEASE TAB PO SCH (08:20)
[2016-09-10] MEDS: FLUCONAZOLE 200 MG TAB PO SCH (08:20)
[2016-09-10] MEDS: SODIUM CHLORIDE 0.9% FLUSH 5 ML FLUSH FLUSH SCH ×2 (08:21→21:00)
[2016-09-10] MEDS: POTASSIUM CHLORIDE 10 MEQ CONTROLLED RELEASE TAB PO SCH ×2 (08:21→20:29)
[2016-09-10] MEDS: BUDESONIDE-FORMOTEROL 160/4.5 MCG INHALER INH SCH ×2 (08:22→20:28)
[2016-09-10] MEDS: ACETAMINOPHEN/HYDROcodone 325 MG/7.5 MG TAB PO PRN ×2 (08:48→14:48)
--- NOTE | 2016-09-10 08:53 | HHI.PR ---
Subjective History of Present Illness Patient feeling weak and tired still wheezing have sever extremity edema on lasix 40 mg IV BID. D/W RN at bed side...consulted hematology for other anticoagulation to consider. Review of Systems Constitutional Constitutional: Fatigue, Weakness Pulmonary Respiratory: Coughing, Shortness of Breath, Wheezing Cardiology CV Remarks extremity edema. Allergic/Immunologic Allergic/Immunologic: Asthma Vitals/Results Intake & Output 09/09/16 09/09/16 09/10/16 15:00 23:00 07:00 Intake Total 1440 ml 1240 ml Output Total 2370 ml 2550 ml Balance -930 ml -1310 ml Intake Oral 1440 ml 1140 ml IV Total 100 ml Output Urine Total 2370 ml 2550 ml # Bowel Movements 0 0 Vital Signs Vital Signs Date Time Temp Pulse Resp B/P Pulse Ox O2 Delivery O2 Flow Rate FiO2 09/10/16 08:00 98.0 99 17 156/99 98 09/10/16 07:23 98.0 100 18 163/97 95 09/10/16 07:22 97 Nasal Cannula 2.00 09/10/16 07:09 97 Nasal Cannula 2.00 09/10/16 07:00 100 09/10/16 03:00 99 09/10/16 03:00 97.9 99 18 154/93 95 09/10/16 03:00 98 Nasal Cannula 2.00 09/09/16 23:00 98.6 92 18 153/93 97 09/09/16 23:00 97 Nasal Cannula 2.00 09/09/16 23:00 92 09/09/16 20:24 97 Nasal Cannula 2.00 09/09/16 19:00 96 Nasal Cannula 2.00 09/09/16 19:00 100 09/09/16 19:00 98.7 100 18 150/95 96 09/09/16 16:26 18 09/09/16 15:43 97 Nasal Cannula 2.00 09/09/16 15:38 98.4 99 17 152/98 98 09/09/16 15:00 103 09/09/16 11:49 98 Nasal Cannula 2.00 09/09/16 11:17 98.2 91 18 156/96 97 09/09/16 11:17 99 CBC/BMP: 09/10/16 0525 09/10/16 0525 Lab Results Laboratory Tests Test 09/09/16 09/10/16 13:10 05:25 Prothrombin Time 29.5 SEC Prothromb Time International 2.6 RATIO Ratio White Blood Count 14.0 TH/MM3 Red Blood Count 4.31 MIL/MM3 Hemoglobin 10.0 GM/DL Hematocrit 32.3 % Mean Corpuscular Volume 75.1 FL Mean Corpuscular Hemoglobin 23.2 PG Mean Corpuscular Hemoglobin 30.9 % Concent Red Cell Distribution Width 24.0 % Platelet Count 159 TH/MM3 Mean Platelet Volume 6.8 FL Neutrophils (%) (Auto) 93.8 % Lymphocytes (%) (Auto) 2.7 % Monocytes (%) (Auto) 3.4 % Eosinophils (%) (Auto) 0.0 % Basophils (%) (Auto) 0.1 % Neutrophils # (Auto) 13.2 TH/MM3 Lymphocytes # (Auto) 0.4 TH/MM3 Monocytes # (Auto) 0.5 TH/MM3 Eosinophils # (Auto) 0.0 TH/MM3 Basophils # (Auto) 0.0 TH/MM3 CBC Comment AUTO DIFF Sodium Level 134 MEQ/L Potassium Level 3.8 MEQ/L Chloride Level 95 MEQ/L Carbon Dioxide Level 30.0 MEQ/L Anion Gap 9 MEQ/L Blood Urea Nitrogen 23 MG/DL Creatinine 0.90 MG/DL Estimat Glomerular Filtration 89 ML/MIN Rate Random Glucose 213 MG/DL Calcium Level 8.3 MG/DL Total Bilirubin 0.5 MG/DL Aspartate Amino Transf 29 U/L (AST/SGOT) Alanine Aminotransferase 178 U/L (ALT/SGPT) Alkaline Phosphatase 130 U/L Total Protein 5.6 GM/DL Albumin 3.0 GM/DL Physical Exam General General Appearance: Well Developed, Well Nourished, No Acute Distress, Comfortable, Anxious Eyes Eye Exam: Pupils Equal, Sclera White, Extraocular Movement Intact Ears & Nose Ears & Nose Exam: Nasal Mucosa [place] Throat Throat Exam: Oral Mucosa [place] & Moist Neck Neck Exam: Neck Supple, Trachea Midline Pulmonary Resp Exam: Breath Sounds Equal, No Distress, Rhonchi Resp Remarks bilateral wheezing. Cardiology CV Exam: Regular, Normal Sinus Rhythm Gastrointestinal/Abdomen GI Exam: Soft, Non-Tender, Bowel Sounds Present Musculoskeletal MS Exam: Normal Tone Integumentary Skin Exam: Warm, Dry Skin Remarks right hip wound. Extremeties Extremities Exam: No Edema, Pedal Pulses Palpable, Moderate Edema, Pitting Edema Extremeties Remarks tenderness right hip. Neurologic Neuro Exam: Alert, Awake, Oriented, Speech Clear, Moving All Extremities Psychiatric Psych Exam: Appropriate Responses PUD Prophylasis PUD Prophylaxis: Protonix Assessment/Plan Assessment/Plan Assessment and Plan 1. Acute asthma/ COPD exacerbation with respiratory failure/insufficiency on admission...on bronchodilator steroids and antibiotic. 2. S/P Coumadin toxicity. 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 4. Tachycardia. 5. Hypertension. 6. History of depression and anxiety. 7. History of DVT and PE. holding coumadin on hepari gtt..consulted hematology for other anticoagulation to consider. 8. Arthritis. 9. History of hyperlipidemia. 10. Gastroesophageal reflux disease (GERD). PLAN: Lasix 40 mg IV BID. Continue oxygen , keep saturation above 92%. IV steroid Aerosol treatment qid & q2 hrs prn continue with Symbicort twice daily Continue Singulair On Theophylline Antitussives when necessary Continue with Xanax dose 0.5 q 8 hr PO Ceftin BID. IV micafungin / and Diflucan..ID Input noted. Analgesics Wound care hold coumadin , f/u INR Continue to hold Coumadin consulted hematology for other anticoagulation to consider. cont Cardizem Proton pump inhibitor for GI prophylaxis. d/w PT Will follow Check CBC with diff CMP in AM. Discussed Condition with: Patient Myron Woodward MD Sep 10, 2016 08:53
[2016-09-10 09:04] LABS: BANDS 5 % (0-6); METAMYELOCYTES 1 % (0-1); MYELOCYTES 1 % (0-0); NEUTROPHIL # MANUAL DIFF 13.7 TH/MM3 (1.8-7.7); OVALOCYTES 1+ (NORMAL); PLATELET ESTIMATE SMEAR NORMAL (NORMAL); PLATELET MORPHOLOGY NORMAL (NORMAL); POLYS (SEG NEUTROPHILS) 91 % (16-70); SCAN/DIFF FINAL DIFF MANUAL; WBC DIFF SAMPLE 100
[2016-09-10] MEDS: PROMETHAZINE/CODEINE 6.25 MG/10 MG/5 ML CUP PO PRN (10:54)
[2016-09-10 12:49] LABS: INTERNATIONAL NORMALIZED RATIO 2.1 RATIO; PROTHROMBIN TIME - PATIENT 24.2 SEC (9.8-11.6)
--- NOTE | 2016-09-10 18:45 | HHI.PR ---
Subjective Remarks Less SOB .Some leg edema. On O2 2L.On solumedrol 40 mg q8h. No chest pain. Chest X ray is clear. Seems better today Objective Vital Signs Date Time Temp Pulse Resp B/P Pulse Ox O2 Delivery O2 Flow Rate FiO2 09/10/16 15:48 18 09/10/16 15:12 97 Room Air 09/10/16 15:10 96 09/10/16 15:10 98.2 93 18 121/97 97 09/10/16 11:43 97 Room Air 09/10/16 11:42 98.4 111 18 148/98 97 09/10/16 11:00 94 09/10/16 08:00 98.0 99 17 156/99 98 09/10/16 07:23 98.0 100 18 163/97 95 09/10/16 07:22 97 Nasal Cannula 2.00 09/10/16 07:09 97 Nasal Cannula 2.00 09/10/16 07:00 100 09/10/16 03:00 99 09/10/16 03:00 97.9 99 18 154/93 95 09/10/16 03:00 98 Nasal Cannula 2.00 09/09/16 23:00 98.6 92 18 153/93 97 09/09/16 23:00 97 Nasal Cannula 2.00 09/09/16 23:00 92 09/09/16 20:24 97 Nasal Cannula 2.00 09/09/16 19:00 96 Nasal Cannula 2.00 09/09/16 19:00 100 09/09/16 19:00 98.7 100 18 150/95 96 I/O 09/09/16 09/09/16 09/09/16 09/10/16 09/10/16 09/10/16 07:00 15:00 23:00 07:00 15:00 23:00 Intake Total 820 ml 1440 ml 1240 ml 1400 ml Output Total 2000 ml 2370 ml 2550 ml 2550 ml Balance -1180 ml -930 ml -1310 ml -1150 ml Intake Oral 720 ml 1440 ml 1140 ml 1400 ml IV Total 100 ml 100 ml Output Urine Total 2000 ml 2370 ml 2550 ml 2550 ml # Bowel Movements 0 0 0 1 Result Diagram: 09/10/16 0525 09/10/16 0525 Objective Remarks GENERAL: Mid aged W/M is alert.No distress. HEENT: Exam unremarkable. Eyes without icterus. Throat clear NECK: Without adenopathy or thyroid enlargement. Central trachea. CHEST: Decreased breath sounds and Occ end-expiratory wheeze on auscultation.No crackles. CARDIAC: PMI distant. S1, S2 audible. No murmur or rub. ABDOMEN: No mass. Bowel sounds audible. EXTREMITIES: No clubbing, cyanosis but has 2 + edema. Assessment and Plan Assessment and Plan IMPRESSION 1. Asthma exacerbation. 2. Hypertension. 3. Status post DVT/PE. 4. Status post septic arthritis, right hip. 5. Anxiety/depression. Plan : 1. O2 at 2L. 2. Nebs qid , duoneb. 3. Cont Antibiotics per ID. 4. Solumedrol 40 mg IV q12h. 5. IS and Acapella at bedside 6. Cont Symbicort 160/4.5 mcg . 2 puffs bid 7. Xanax .25 mg q4h PRN 8. Cont theodur 200 mg bid. 9. Lasix 40 mg BID. 10. BMP in am Ashok Valdes MD Sep 10, 2016 18:44
[2016-09-10] MEDS: MICAFUNGIN INJ 150 MG in SODIUM CHLORIDE 0.9% INJ 100 ML IV SCH (20:28)
[2016-09-10] MEDS: MONTELUKAST SODIUM 10 MG TAB PO SCH (20:29)
[2016-09-10] MEDS: ATORVASTATIN 20 MG TAB PO SCH (20:29)
[2016-09-10] MEDS: RIVAROXABAN 15 MG TAB PO SCH (21:00)
[2016-09-11] VITALS (9 sets, daily range): BP systolic 131–169; BP diastolic 71–92; PULSE 83–110; RESP 18–25; TEMP 95.6–98.8; O2SAT 92–97
[2016-09-11] MEDS: RESP: ALBUTEROL 2.5 MG/3 ML NEB (PRN) NEB ×2 (00:36→03:05)
[2016-09-11] MEDS: ACETAMINOPHEN/HYDROcodone 325 MG/7.5 MG TAB PO PRN ×3 (03:58→20:55)
[2016-09-11] MEDS: INSULIN ASPART SUPPLEMENTAL SCALE SQ SCH ×4 (05:00→20:54)
[2016-09-11 06:55] LABS: AUTOMATED NEUTROPHIL # 12.3 TH/MM3 (1.8-7.7); BASOPHIL % 0.3 % (0.0-2.0); HEMATOCRIT 31.9 % (39.0-51.0); LYMPH % 2.6 % (9.0-44.0); LYMPHOCYTE # 0.3 TH/MM3 (1.0-4.8); MEAN CORPUSCULAR HEMOGLOBIN 23.8 PG (27.0-34.0); MEAN CORPUSCULAR HGB CONC 31.8 % (32.0-36.0); MONO % 3.9 % (0.0-8.0); NEUT % 93.2 % (16.0-70.0); PLATELET COUNT 156 TH/MM3 (150-450); RED BLOOD COUNT 4.25 MIL/MM3 (4.50-5.90); RED CELL DISTRIBUTION WIDTH 23.5 % (11.6-17.2); WHITE BLOOD COUNT 13.2 TH/MM3 (4.0-11.0)
[2016-09-11 07:03] LABS: HEMO FLAGS AUTO DIFF
[2016-09-11 07:23] LABS: ALKALINE PHOSPHATASE 116 U/L (45-117); ALT (GPT) 137 U/L (12-78); ANION GAP 10 MEQ/L (5-15); AST (GOT) 22 U/L (15-37); BICARBONATE 29.3 MEQ/L (21.0-32.0); BLOOD UREA NITROGEN 24 MG/DL (7-18); CHLORIDE 97 MEQ/L (98-107); GLOMERULAR FILTRATION RATE 85 ML/MIN (>89); POTASSIUM 3.9 MEQ/L (3.5-5.1); SODIUM (NA) 136 MEQ/L (136-145); TOTAL BILIRUBIN ADULT 0.4 MG/DL (0.2-1.0)
[2016-09-11 07:52] LABS: BANDS 7 % (0-6); METAMYELOCYTES 4 % (0-1); NEUTROPHIL # MANUAL DIFF 11.2 TH/MM3 (1.8-7.7); POLYS (SEG NEUTROPHILS) 74 % (16-70); SCAN/DIFF FINAL DIFF MANUAL; WBC DIFF SAMPLE 100
[2016-09-11 07:53] LABS: PLATELET ESTIMATE SMEAR NORMAL (NORMAL); PLATELET MORPHOLOGY NORMAL (NORMAL)
[2016-09-11] MEDS: RESP: ALBUTEROL 2.5 MG/IPRATROPIUM 0.5 MG NEB (SCH) NEB ×4 (08:09→19:22)
--- NOTE | 2016-09-11 08:29 | HHI.PR ---
Subjective History of Present Illness Patient feeling weak and tired still wheezing have extremity edema better on lasix 40 mg IV BID. ... d/w hematology Dr Reuben Cali for other anticoagulation he wants to start Xarelto. Review of Systems Constitutional Constitutional: Fatigue, Weakness Pulmonary Respiratory: Coughing, Shortness of Breath, Wheezing Cardiology CV Remarks extremity edema. Allergic/Immunologic Allergic/Immunologic: Asthma Vitals/Results Intake & Output 09/10/16 09/10/16 09/11/16 15:00 23:00 07:00 Intake Total 1640 ml 100 ml Output Total 3050 ml 1025 ml Balance -1410 ml -925 ml Intake Oral 1640 ml IV Total 100 ml Output Urine Total 3050 ml 1025 ml # Bowel Movements 1 Vital Signs Vital Signs Date Time Temp Pulse Resp B/P Pulse Ox O2 Delivery O2 Flow Rate FiO2 09/11/16 08:16 95.6 91 20 169/91 94 09/11/16 08:10 96 09/11/16 04:00 98.8 100 20 156/87 92 09/11/16 00:00 96.7 97 25 139/89 92 09/10/16 20:00 96.1 100 30 139/81 99 09/10/16 19:59 94 21 09/10/16 15:48 18 09/10/16 15:12 97 Room Air 09/10/16 15:10 96 09/10/16 15:10 98.2 93 18 121/97 97 09/10/16 11:43 97 Room Air 09/10/16 11:42 98.4 111 18 148/98 97 09/10/16 11:00 94 CBC/BMP: 09/11/16 0530 09/11/16 0530 Lab Results Laboratory Tests Test 09/10/16 09/11/16 12:10 05:30 Prothrombin Time 24.2 SEC Prothromb Time International 2.1 RATIO Ratio White Blood Count 13.2 TH/MM3 Red Blood Count 4.25 MIL/MM3 Hemoglobin 10.1 GM/DL Hematocrit 31.9 % Mean Corpuscular Volume 75.0 FL Mean Corpuscular Hemoglobin 23.8 PG Mean Corpuscular Hemoglobin 31.8 % Concent Red Cell Distribution Width 23.5 % Platelet Count 156 TH/MM3 Mean Platelet Volume 7.4 FL Neutrophils (%) (Auto) 93.2 % Lymphocytes (%) (Auto) 2.6 % Monocytes (%) (Auto) 3.9 % Eosinophils (%) (Auto) 0.0 % Basophils (%) (Auto) 0.3 % Neutrophils # (Auto) 12.3 TH/MM3 Lymphocytes # (Auto) 0.3 TH/MM3 Monocytes # (Auto) 0.5 TH/MM3 Eosinophils # (Auto) 0.0 TH/MM3 Basophils # (Auto) 0.0 TH/MM3 CBC Comment AUTO DIFF Differential Total Cells 100 Counted Neutrophils % (Manual) 74 % Band Neutrophils % 7 % Lymphocytes % 12 % Monocytes % 3 % Neutrophils # (Manual) 11.2 TH/MM3 Metamyelocytes 4 % Differential Comment FINAL DIFF MANUAL Platelet Estimate NORMAL Platelet Morphology Comment NORMAL Sodium Level 136 MEQ/L Potassium Level 3.9 MEQ/L Chloride Level 97 MEQ/L Carbon Dioxide Level 29.3 MEQ/L Anion Gap 10 MEQ/L Blood Urea Nitrogen 24 MG/DL Creatinine 0.93 MG/DL Estimat Glomerular Filtration 85 ML/MIN Rate Random Glucose 201 MG/DL Calcium Level 8.0 MG/DL Total Bilirubin 0.4 MG/DL Aspartate Amino Transf 22 U/L (AST/SGOT) Alanine Aminotransferase 137 U/L (ALT/SGPT) Alkaline Phosphatase 116 U/L Total Protein 5.6 GM/DL Albumin 3.1 GM/DL Physical Exam General General Appearance: Well Developed, Well Nourished, No Acute Distress, Comfortable, Anxious Eyes Eye Exam: Pupils Equal, Sclera White, Extraocular Movement Intact Ears & Nose Ears & Nose Exam: Nasal Mucosa [place] Throat Throat Exam: Oral Mucosa [place] & Moist Neck Neck Exam: Neck Supple, Trachea Midline Pulmonary Resp Exam: Breath Sounds Equal, No Distress, Rhonchi Resp Remarks bilateral wheezing. Cardiology CV Exam: Regular, Normal Sinus Rhythm Gastrointestinal/Abdomen GI Exam: Soft, Non-Tender, Bowel Sounds Present Musculoskeletal MS Exam: Normal Tone Integumentary Skin Exam: Warm, Dry Skin Remarks right hip wound. Extremeties Extremities Exam: No Edema, Pedal Pulses Palpable, Moderate Edema, Pitting Edema Extremeties Remarks tenderness right hip. Neurologic Neuro Exam: Alert, Awake, Oriented, Speech Clear, Moving All Extremities Psychiatric Psych Exam: Appropriate Responses PUD Prophylasis PUD Prophylaxis: Protonix Assessment/Plan Assessment/Plan Assessment and Plan 1. Acute asthma/ COPD exacerbation with respiratory failure/insufficiency on admission...on bronchodilator steroids and antibiotic. 2. S/P Coumadin toxicity. 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 4. Tachycardia. 5. Hypertension. 6. History of depression and anxiety. 7. History of DVT and PE. holding coumadin on hepari gtt..d/w hematology Dr Reuben Cali for other anticoagulation he wants to start Xarelto. 8. Arthritis. 9. History of hyperlipidemia. 10. Gastroesophageal reflux disease (GERD). PLAN: Lasix 40 mg IV BID. Continue oxygen , keep saturation above 92%. IV steroid Aerosol treatment qid & q2 hrs prn continue with Symbicort twice daily Continue Singulair On Theophylline Antitussives when necessary Continue with Xanax dose 0.5 q 8 hr PO Ceftin BID. IV micafungin / and Diflucan..ID Input noted. Analgesics Wound care hold coumadin , f/u INR Continue to hold Coumadin consulted hematology for other anticoagulation to consider. cont Cardizem Proton pump inhibitor for GI prophylaxis. d/w PT Will follow Check CBC with diff CMP in AM. Discussed Condition with: Patient Myron Woodward MD Sep 11, 2016 08:29
--- NOTE | 2016-09-11 08:54 | MB ---
cc: SUKHDEV NEWBERRY DATE OF CONSULTATION 09/10/16 DATE OF 1965 REASON FOR CONSULTATION Patient with a history of DVT and pulmonary embolism who has been on Coumadin with suboptimal therapeutic levels. CHIEF COMPLAINT Admitted with exacerbation of asthma. HISTORY OF PRESENT ILLNESS Ms. Link is a 51-year-old male with multiple medical problems including history of severe asthma with recurrent episodes of exacerbation anxiety depression, hyperlipidemia, COPD, gastroesophageal reflux disease and history of DVT as well as pulmonary embolism in the setting of hospital admission requiring intensive care stay. He has been on Coumadin which has been managed by his primary care physician, Dr. Woodward. The patient was admitted to the hospital after he developed shortness of breath. He saw his primary care physician and he was sent to the emergency room for hospital admission. He required BiPAP on admission and was transitioned to nasal cannula. The patient was found to have supratherapeutic INR on admission. He also has a history of right hip surgery with infection. He has received treatment for that. He is currently on IV antibiotics. Hematology has been consulted to make further recommendations in this patient who has labile INR while being on Coumadin and suboptimal therapeutic levels. The patient is at high risk for pulmonary embolism and DVT. He denies any bright red blood per rectum or melena. She has not had any nosebleeds or gum bleeds. He does occasionally develop bruises due to Coumadin. He states that he had bright red blood per rectum in July 2016. He underwent EGD and colonoscopy. EGD did not reveal any gastric ulcers. He had some rectal fissures and it was thought that the bleeding was due to constipation and rectal fissures. He has not had any GI bleeding while on Coumadin. REVIEW OF SYSTEMS A comprehensive 14-point review of systems was completed which is negative except as described in the HPI. PAST MEDICAL HISTORY 1. DVT and PE. 2. Asthma with recurrent exacerbations requiring multiple hospitalizations. 3. Depression. 4. Hyperlipidemia. 5. COPD. 6. Gastroesophageal reflux disease. PAST SURGICAL HISTORY Appendectomy. MEDICATIONS 1. Symbicort. 2. Prednisone 40 mg daily. 3. Coumadin. 4. Fluconazole 400 mg one tablet p.o. daily. 5. Diltiazem 360 one tablet p.o. daily. 6. Atorvastatin 20 mg daily. 7. Singulair 10 mg daily. 8. Azithromycin 250 mg one tablet p.o. daily. 9. Omeprazole 20 mg tablet p.o. daily. Current medications while in the hospital 1. Solu-Medrol 40 mg IV b.i.d. 2. DuoNebs. 3. Lasix 40 mg IV push b.i.d. 4. Xanax 0.5 mg one tablet p.o. q.8 h p.r.n. 5. Theophylline 400 mg one tablet p.o. daily. 6. Ceftin 500 mg tablet p.o. q.12 h. 7. Micafungin 150 mg IV q.24 h. 8. Clonidine 0.1 mg tablet p.o. q.6 h p.r.n. systolic blood pressure greater than 160. 9. Diltiazem 360 mg tablet p.o. daily. 10. Fluconazole 400 mg tablet p.o. daily. 11. Protonix 40 mg tablet p.o. daily. 12. Lorazepam 0.5 mg tablet p.o. b.i.d. 13. Xopenex 1.25 mg q.2 h p.r.n. 14. Lipitor 20 mg one tablet p.o. q.h.s. 15. Singulair 10 mg one tablet p.o. q.h.s. 16. [place] 7.5 x 325 mg one tablet p.o. t.i.d. p.r.n. 17. Phenergan 5 mL p.o. q.4 h p.r.n. 18. Zofran 4 mg IV q.6 h p.r.n. ALLERGIES DEMEROL. TETRACYCLINE. FAMILY HISTORY Was reviewed and it is noncontributory to this admission. SOCIAL HISTORY He denies tobacco abuse, alcohol abuse. No history of illicit drug use. PHYSICAL EXAMINATION VITAL SIGNS: Blood pressure is 121/97, pulse is in the 90s, temperature is 98.2, O2 sats are 97% on room air. GENERAL: Well-developed, well-nourished male in no apparent distress. HEENT: Pupils are equal, round, reactive to light. EOMI. No oral thrush. No oral lesions. NECK: Supple. No JVD, no bruits. No lymphadenopathy. CHEST: Clear to auscultation bilaterally. CARDIAC: S1-S2, regular rate and rhythm. ABDOMEN: Soft, nontender, nondistended. Bowel sounds are present. EXTREMITIES: With 1+ bilateral lower extremity edema. There is a right hip surgical scar. There is no apparent drainage. There is no edema or erythema. IMAGING STUDIES Reviewed in the EMR ASSESSMENT AND PLAN This is a 51-year-old male with a past medical history of recurrent asthma attacks with recurrent hospital admissions, hypertension, hyperlipidemia, history of pulmonary embolism and DVT and also right hip wound infection who was admitted to the hospital with shortness of breath and exacerbation of asthma. Hematology has been consulted to evaluate this patient who has been on Coumadin for DVT and pulmonary embolism and has been difficult to manage due labile INR. He on he has persistent suboptimal therapeutic levels. 1. Pulmonary embolism and DVT. This was in the setting of a hospital admission. He has been on Coumadin. This has been difficult to manage. I had a long conversation with the patient. He is at high-risk for recurrent thrombosis. I would recommend starting this patient on Xarelto. He would need to be on anticoagulation for at least a full year since he developed blood clots in December. He is agreeable to proceeding with this treatment. I will start his first dose of Xarelto tonight. I discussed this case with Dr. Woodward. We will discontinue Coumadin. 2. Infected right hip wound. He is currently on antibiotics and of fungal treatment. 3. Exacerbation of asthma. Thank you for allowing me to participate in the care of this patient. I will continue to follow this patient along. MD FILIBERTO Boyd/ /7:53 PM /8:35 AM
[2016-09-11] MEDS: SODIUM CHLORIDE 0.9% FLUSH 5 ML FLUSH FLUSH SCH ×2 (09:45→20:55)
[2016-09-11] MEDS: DILTIAZEM-CD 180 MG CAP ER PO SCH (09:46)
[2016-09-11] MEDS: LORazepam 0.5 MG TAB PO SCH ×2 (09:46→20:56)
[2016-09-11] MEDS: THEOPHYLLINE 200 MG EXTENDED RELEASE CAP PO SCH (09:46)
[2016-09-11] MEDS: FLUCONAZOLE 200 MG TAB PO SCH (09:46)
[2016-09-11] MEDS: CEFUROXIME AXETIL 500 MG TAB PO SCH ×2 (09:46→20:56)
[2016-09-11] MEDS: POTASSIUM CHLORIDE 10 MEQ CONTROLLED RELEASE TAB PO SCH ×2 (09:46→20:56)
[2016-09-11] MEDS: PANTOPRAZOLE SOD 40 MG DELAYED RELEASE TAB PO SCH (09:46)
[2016-09-11] MEDS: SUCRALFATE 1 GM TAB PO SCH ×3 (09:46→18:14)
[2016-09-11] MEDS: FUROSEMIDE 40 MG/4 ML VIAL IV PUSH SCH ×2 (09:47→18:14)
[2016-09-11] MEDS: methylPREDNISolone SOD SUCC 40 MG/1 ML VIAL IV PUSH SCH (09:47)
[2016-09-11] MEDS: BUDESONIDE-FORMOTEROL 160/4.5 MCG INHALER INH SCH ×2 (09:48→20:58)
[2016-09-11] MEDS: RIVAROXABAN 15 MG TAB PO SCH ×2 (09:53→18:22)
[2016-09-11] MEDS: PROMETHAZINE/CODEINE 6.25 MG/10 MG/5 ML CUP PO PRN (14:57)
[2016-09-11 15:57] LABS: INTERNATIONAL NORMALIZED RATIO 2.5 RATIO; PROTHROMBIN TIME - PATIENT 29.1 SEC (9.8-11.6)
--- NOTE | 2016-09-11 19:21 | PD.ONC.PN ---
Subjective Subjective Remarks see earlier in the day no new issues Osman started Objective Data Date Time Temp Pulse Resp B/P Pulse Ox O2 Delivery O2 Flow Rate FiO2 09/11/16 16:00 96.6 109 20 149/71 96 09/11/16 15:25 95 Nasal Cannula 3.00 09/11/16 12:00 96.2 90 20 131/85 96 09/11/16 08:16 95.6 91 20 169/91 94 09/11/16 08:10 96 09/11/16 04:00 98.8 100 20 156/87 92 09/11/16 00:00 96.7 97 25 139/89 92 09/10/16 20:00 96.1 100 30 139/81 99 09/10/16 19:59 94 21 09/11/16 09/11/16 09/11/16 07:00 15:00 23:00 Intake Total 100 ml 960 ml Output Total 1025 ml 1100 ml 800 ml Balance -925 ml -140 ml -800 ml Result Diagram: 09/11/1630 09/11/16 0530 Laboratory Results Laboratory Tests Test 09/11/16 09/11/16 05:30 14:50 White Blood Count 13.2 TH/MM3 Red Blood Count 4.25 MIL/MM3 Hemoglobin 10.1 GM/DL Hematocrit 31.9 % Mean Corpuscular Volume 75.0 FL Mean Corpuscular Hemoglobin 23.8 PG Mean Corpuscular Hemoglobin 31.8 % Concent Red Cell Distribution Width 23.5 % Platelet Count 156 TH/MM3 Mean Platelet Volume 7.4 FL Neutrophils (%) (Auto) 93.2 % Lymphocytes (%) (Auto) 2.6 % Monocytes (%) (Auto) 3.9 % Eosinophils (%) (Auto) 0.0 % Basophils (%) (Auto) 0.3 % Neutrophils # (Auto) 12.3 TH/MM3 Lymphocytes # (Auto) 0.3 TH/MM3 Monocytes # (Auto) 0.5 TH/MM3 Eosinophils # (Auto) 0.0 TH/MM3 Basophils # (Auto) 0.0 TH/MM3 CBC Comment AUTO DIFF Differential Total Cells 100 Counted Neutrophils % (Manual) 74 % Band Neutrophils % 7 % Lymphocytes % 12 % Monocytes % 3 % Neutrophils # (Manual) 11.2 TH/MM3 Metamyelocytes 4 % Differential Comment FINAL DIFF MANUAL Platelet Estimate NORMAL Platelet Morphology Comment NORMAL Sodium Level 136 MEQ/L Potassium Level 3.9 MEQ/L Chloride Level 97 MEQ/L Carbon Dioxide Level 29.3 MEQ/L Anion Gap 10 MEQ/L Blood Urea Nitrogen 24 MG/DL Creatinine 0.93 MG/DL Estimat Glomerular Filtration 85 ML/MIN Rate Random Glucose 201 MG/DL Calcium Level 8.0 MG/DL Total Bilirubin 0.4 MG/DL Aspartate Amino Transf 22 U/L (AST/SGOT) Alanine Aminotransferase 137 U/L (ALT/SGPT) Alkaline Phosphatase 116 U/L Total Protein 5.6 GM/DL Albumin 3.1 GM/DL Prothrombin Time 29.1 SEC Prothromb Time International 2.5 RATIO Ratio Administered Medications Medications (Trade) Dose Ordered Sig/Gabi Route PRN Reason Start Time Stop Time Status Last Admin Dose Admin Atorvastatin Calcium (Lipitor) 20 mg HS PO 08/29/16 21:00 09/10/16 20:29 Budesonide/ Formoterol Fumarate (Symbicort 160-4.5 Inh) 2 puff Q12HR INH 08/29/16 21:00 09/11/16 09:48 Diltiazem HCl (Cardizem Cd) 360 mg DAILY PO 08/30/16 09:00 09/11/16 09:46 Fluconazole (Diflucan) 400 mg DAILY PO 08/30/16 09:00 09/11/16 09:46 Acetaminophen/ Hydrocodone Bitart ([place] 7.5-325 Mg) 1 tab TID PRN PO PAIN 08/29/16 18:30 09/11/16 12:45 Montelukast Sodium (Singulair) 10 mg HS PO 08/29/16 21:00 09/10/16 20:29 Pantoprazole Sodium (Protonix) 40 mg DAILY PO 08/30/16 09:00 09/11/16 09:46 Promethazine HCl/ Codeine (Phenergan-Codeine Liq) 5 ml Q4H PRN PO COUGH AND/OR COLD SYMPTOMS 08/29/16 18:30 09/11/16 14:57 Sucralfate (Carafate) 1 gm TID PO 08/30/16 09:00 09/11/16 18:14 IV Flush (NS Flush) 2 ml UNSCH PRN FLUSH FLUSH AFTER USING IV ACCESS 08/29/16 18:30 09/03/16 21:04 IV Flush (NS Flush) 2 ml BID FLUSH 08/29/16 21:00 09/11/16 09:45 Ondansetron HCl (Zofran Inj) 4 mg Q6H PRN IVP NAUSEA OR VOMITING 08/29/16 18:30 09/08/16 18:47 Lorazepam (Ativan) 0.5 mg BID PO 08/30/16 09:00 09/11/16 09:46 Hydromorphone HCl (Dilaudid Pf Inj) 0.5 mg Q4H PRN IV BREAKTHROUGH PAIN 08/30/16 23:15 09/09/16 04:19 Clonidine 0.1 mg 0.1 mg Q6H PRN PO SBP>160, DBP>90 09/02/16 23:45 09/09/16 05:21 Micafungin Sodium/ Sodium Chloride (Mycamine Inj/NS Inj) 100 ml @ 100 mls/hr Q24H IV 09/04/16 20:00 09/10/16 20:28 IV Flush (NS Flush) See Protocol DAILY IVF 09/05/16 09:00 09/11/16 09:00 Heparin Sodium (Porcine) (Heparin Central Flush) See Protocol DAILY IVF 09/05/16 09:00 09/11/16 09:47 Cefuroxime Axetil (Ceftin) 500 mg Q12HR PO 09/06/16 09:00 09/11/16 09:46 Potassium Chloride (KCl) 10 meq Q12HR PO 09/06/16 21:00 09/11/16 09:46 Theophylline (Samuel-24) 400 mg DAILY PO 09/08/16 09:00 09/11/16 09:46 Promethazine HCl (Phenergan Inj) 12.5 mg Q8H PRN IM NAUESA 09/08/16 20:15 09/08/16 21:40 Furosemide (Lasix Inj) 40 mg BID@,18 IV PUSH 09/09/16 18:00 09/11/16 18:14 Methylprednisolone Sodium Succinate (SoluMEDROL INJ) 40 mg BID IV PUSH 09/10/16 21:00 09/11/16 09:47 Rivaroxaban (Xarelto) 15 mg BID@,18 PO 09/10/16 21:00 09/11/16 18:22 Objective Remarks GENERAL: nad SKIN: Warm and dry. NECK: Supple, trachea midline. No JVD or lymphadenopathy. LYMPHATIC: No adenopathy. CARDIOVASCULAR: Regular rate and rhythm without murmurs. RESPIRATORY: Breath sounds equal bilaterally. No accessory muscle use. GASTROINTESTINAL: Abdomen soft, non-tender, nondistended. EXTREMITIES: No cyanosis, 1 plus edema b/l Assessment/Plan Problem List: (1) Acute hypercapnic respiratory failure Status: Acute (2) Thrombocytopenia Status: Resolved (3) Superficial thrombophlebitis Status: Acute (4) Pulmonary embolism Status: Acute (5) Acute asthma exacerbation Status: Acute (6) Warfarin-induced coagulopathy Status: Acute (7) Septic hip Status: Acute (8) Abscess of hip, right Status: Acute Assessment 51-year-old male with a past medical history of recurrent asthma attacks with recurrent hospital admissions, hypertension, hyperlipidemia, history of pulmonary embolism and DVT and also right hip wound infection who was admitted to the hospital with shortness of breath and exacerbation of asthma. Hematology has been consulted to evaluate this patient who has been on Coumadin for DVT and pulmonary embolism and has been difficult to manage due labile INR. He on he has persistent suboptimal therapeutic levels. 1. Hx of Pulmonary embolism and DVT-- in the setting of a hospital admission in december 2015 2. Labile and difficult to manage INR while on Coumadin 3. Infected right hip wound. 4. Exacerbation of asthma. Plan - Continue Xarelto 15mg PO BID times 21 days and then switch to 20mg daily - on abx for septic hip - on steroids for asthma exacerbation Problem Qualifiers (1) Acute asthma exacerbation: Qualified Code: J45.51 - Severe persistent asthma with acute exacerbation Reuben Cali MD Sep 11, 2016 19:20
--- NOTE | 2016-09-11 20:30 | HHI.PR ---
Subjective Remarks Less SOB .less leg edema. On O2 2L.On solumedrol 40 mg q12h. No chest pain. Seems better today Objective Vital Signs Date Time Temp Pulse Resp B/P Pulse Ox O2 Delivery O2 Flow Rate FiO2 09/11/16 16:00 96.6 109 20 149/71 96 09/11/16 15:25 95 Nasal Cannula 3.00 09/11/16 12:00 96.2 90 20 131/85 96 09/11/16 08:16 95.6 91 20 169/91 94 09/11/16 08:10 96 09/11/16 04:00 98.8 100 20 156/87 92 09/11/16 00:00 96.7 97 25 139/89 92 I/O 09/10/16 09/10/16 09/10/16 09/11/16 09/11/16 09/11/16 07:00 15:00 23:00 07:00 15:00 23:00 Intake Total 1240 ml 1640 ml 100 ml 960 ml Output Total 2550 ml 3050 ml 1025 ml 1100 ml 800 ml Balance -1310 ml -1410 ml -925 ml -140 ml -800 ml Intake Oral 1140 ml 1640 ml 960 ml IV Total 100 ml 100 ml Output Urine Total 2550 ml 3050 ml 1025 ml 1100 ml 800 ml # Bowel Movements 0 1 0 Result Diagram: 09/11/1652909/11/16529 Objective Remarks GENERAL: Mid aged W/M is alert.No distress. HEENT: Exam unremarkable. Eyes without icterus. Throat clear NECK: Without adenopathy or thyroid enlargement. Central trachea. CHEST: Decreased breath sounds and Occ end-expiratory wheeze on auscultation.No crackles. CARDIAC: PMI distant. S1, S2 audible. No murmur or rub. ABDOMEN: No mass. Bowel sounds audible. EXTREMITIES: No clubbing, cyanosis but has 1 + edema. Assessment and Plan Assessment and Plan IMPRESSION 1. Asthma exacerbation. 2. Hypertension. 3. Status post DVT/PE. 4. Status post septic arthritis, right hip. 5. Anxiety/depression. Plan : 1. O2 at 2L. 2. Nebs qid , duoneb. 3. Cont Antibiotics per ID. 4. D/C Solumedrol and add prednisone 20 mg bid 5. IS and Acapella at bedside 6. Cont Symbicort 160/4.5 mcg . 2 puffs bid 7. Xanax .25 mg q4h PRN 8. Cont theodur 200 mg bid. 9. Lasix 40 mg po BID. 10. BMP in am Ashok Valdes MD Sep 11, 2016 20:30
[2016-09-11] MEDS: ATORVASTATIN 20 MG TAB PO SCH (20:56)
[2016-09-11] MEDS: MONTELUKAST SODIUM 10 MG TAB PO SCH (20:56)
[2016-09-11] MEDS: predniSONE 20 MG TAB PO SCH (21:05)
[2016-09-11] MEDS: MICAFUNGIN INJ 150 MG in SODIUM CHLORIDE 0.9% INJ 100 ML IV SCH (21:05)
[2016-09-12] VITALS (9 sets, daily range): BP systolic 122–137; BP diastolic 82–91; PULSE 85–112; RESP 18–20; TEMP 95.8–97.8; O2SAT 93–97
[2016-09-12] MEDS: RESP: ALBUTEROL 2.5 MG/3 ML NEB (PRN) NEB (00:52)
[2016-09-12] MEDS: INSULIN ASPART SUPPLEMENTAL SCALE SQ SCH ×4 (06:04→20:43)
[2016-09-12 06:18] LABS: AUTOMATED NEUTROPHIL # 10.7 TH/MM3 (1.8-7.7); BASOPHIL % 0.4 % (0.0-2.0); EOSINOPHIL % 0.1 % (0.0-4.0); HEMATOCRIT 33.2 % (39.0-51.0); LYMPH % 4.8 % (9.0-44.0); LYMPHOCYTE # 0.6 TH/MM3 (1.0-4.8); MEAN CELL VOLUME 74.4 FL (80.0-100.0); MEAN CORPUSCULAR HEMOGLOBIN 23.5 PG (27.0-34.0); MEAN CORPUSCULAR HGB CONC 31.5 % (32.0-36.0); MONO % 5.6 % (0.0-8.0); NEUT % 89.1 % (16.0-70.0); PLATELET COUNT 163 TH/MM3 (150-450); RED BLOOD COUNT 4.46 MIL/MM3 (4.50-5.90); RED CELL DISTRIBUTION WIDTH 24.2 % (11.6-17.2)
[2016-09-12 06:37] LABS: ANION GAP 7 MEQ/L (5-15); AST (GOT) 22 U/L (15-37); BICARBONATE 30.7 MEQ/L (21.0-32.0); BLOOD UREA NITROGEN 21 MG/DL (7-18); CHLORIDE 99 MEQ/L (98-107); GLOMERULAR FILTRATION RATE 91 ML/MIN (>89); HEMO FLAGS AUTO DIFF; POTASSIUM 4.1 MEQ/L (3.5-5.1); SODIUM (NA) 137 MEQ/L (136-145)
[2016-09-12 06:40] LABS: ALKALINE PHOSPHATASE 104 U/L (45-117); ALT (GPT) 119 U/L (12-78); TOTAL BILIRUBIN ADULT 0.6 MG/DL (0.2-1.0)
[2016-09-12 08:11] LABS: METAMYELOCYTES 2 % (0-1); MYELOCYTES 1 % (0-0); NEUTROPHIL # MANUAL DIFF 10.8 TH/MM3 (1.8-7.7); PLATELET ESTIMATE SMEAR NORMAL (NORMAL); PLATELET MORPHOLOGY NORMAL (NORMAL); POLYS (SEG NEUTROPHILS) 87 % (16-70); SCAN/DIFF FINAL DIFF MANUAL; WBC DIFF SAMPLE 100
[2016-09-12] MEDS: DILTIAZEM-CD 180 MG CAP ER PO SCH (08:40)
[2016-09-12] MEDS: predniSONE 20 MG TAB PO SCH ×2 (08:40→20:43)
[2016-09-12] MEDS: POTASSIUM CHLORIDE 10 MEQ CONTROLLED RELEASE TAB PO SCH ×2 (08:41→20:43)
[2016-09-12] MEDS: SUCRALFATE 1 GM TAB PO SCH ×3 (08:41→15:47)
[2016-09-12] MEDS: PANTOPRAZOLE SOD 40 MG DELAYED RELEASE TAB PO SCH (08:41)
[2016-09-12] MEDS: CEFUROXIME AXETIL 500 MG TAB PO SCH ×2 (08:41→20:43)
[2016-09-12] MEDS: FUROSEMIDE 40 MG TAB PO SCH ×2 (08:41→15:47)
[2016-09-12] MEDS: LORazepam 0.5 MG TAB PO SCH ×2 (08:41→20:43)
[2016-09-12] MEDS: FLUCONAZOLE 200 MG TAB PO SCH (08:41)
[2016-09-12] MEDS: BUDESONIDE-FORMOTEROL 160/4.5 MCG INHALER INH SCH ×2 (08:42→20:42)
[2016-09-12] MEDS: SODIUM CHLORIDE 0.9% FLUSH 5 ML FLUSH FLUSH SCH ×2 (08:43→20:43)
[2016-09-12] MEDS: THEOPHYLLINE 200 MG EXTENDED RELEASE CAP PO SCH (09:12)
[2016-09-12] MEDS: RIVAROXABAN 15 MG TAB PO SCH (09:12)
[2016-09-12] MEDS: RESP: ALBUTEROL 2.5 MG/IPRATROPIUM 0.5 MG NEB (SCH) NEB ×4 (09:43→21:25)
[2016-09-12] MEDS: PROMETHAZINE/CODEINE 6.25 MG/10 MG/5 ML CUP PO PRN (10:13)
--- NOTE | 2016-09-12 12:06 | PD.ONC.PN ---
Subjective Subjective Remarks Afebrile overnight. Patient reporting he had some BRBPR on toilet tissue this AM. he also had some nose bleeding for a few seconds overnight. No abdominal pain. Objective Data Date Time Temp Pulse Resp B/P Pulse Ox O2 Delivery O2 Flow Rate FiO2 09/12/16 09:43 97 Nasal Cannula 3.00 09/12/16 08:00 95.8 85 18 129/91 93 09/12/16 04:26 97.3 105 18 137/87 95 09/12/16 00:55 97 Nasal Cannula 3.00 09/12/16 00:36 97.8 111 18 122/87 95 09/11/16 21:00 97.7 110 18 139/92 97 09/11/16 16:00 96.6 109 20 149/71 96 09/11/16 15:25 95 Nasal Cannula 3.00 09/12/16 09/12/16 09/12/16 07:00 15:00 23:00 Output Total 1000 ml Balance -1000 ml Result Diagram: 09/12/16 0610 09/12/16 0610 Laboratory Results Laboratory Tests Test 09/11/16 09/12/16 14:50 06:10 Prothrombin Time 29.1 SEC Prothromb Time International 2.5 RATIO Ratio White Blood Count 12.0 TH/MM3 Red Blood Count 4.46 MIL/MM3 Hemoglobin 10.5 GM/DL Hematocrit 33.2 % Mean Corpuscular Volume 74.4 FL Mean Corpuscular Hemoglobin 23.5 PG Mean Corpuscular Hemoglobin 31.5 % Concent Red Cell Distribution Width 24.2 % Platelet Count 163 TH/MM3 Mean Platelet Volume 6.8 FL Neutrophils (%) (Auto) 89.1 % Lymphocytes (%) (Auto) 4.8 % Monocytes (%) (Auto) 5.6 % Eosinophils (%) (Auto) 0.1 % Basophils (%) (Auto) 0.4 % Neutrophils # (Auto) 10.7 TH/MM3 Lymphocytes # (Auto) 0.6 TH/MM3 Monocytes # (Auto) 0.7 TH/MM3 Eosinophils # (Auto) 0.0 TH/MM3 Basophils # (Auto) 0.0 TH/MM3 CBC Comment AUTO DIFF Differential Total Cells 100 Counted Neutrophils % (Manual) 87 % Lymphocytes % 5 % Monocytes % 5 % Neutrophils # (Manual) 10.8 TH/MM3 Metamyelocytes 2 % Myelocytes 1 % Differential Comment FINAL DIFF MANUAL Platelet Estimate NORMAL Platelet Morphology Comment NORMAL Sodium Level 137 MEQ/L Potassium Level 4.1 MEQ/L Chloride Level 99 MEQ/L Carbon Dioxide Level 30.7 MEQ/L Anion Gap 7 MEQ/L Blood Urea Nitrogen 21 MG/DL Creatinine 0.88 MG/DL Estimat Glomerular Filtration 91 ML/MIN Rate Random Glucose 167 MG/DL Calcium Level 8.5 MG/DL Total Bilirubin 0.6 MG/DL Aspartate Amino Transf 22 U/L (AST/SGOT) Alanine Aminotransferase 119 U/L (ALT/SGPT) Alkaline Phosphatase 104 U/L Total Protein 5.6 GM/DL Albumin 3.1 GM/DL Administered Medications Medications (Trade) Dose Ordered Sig/Gabi Route PRN Reason Start Time Stop Time Status Last Admin Dose Admin Atorvastatin Calcium (Lipitor) 20 mg HS PO 08/29/16 21:00 09/11/16 20:56 Budesonide/ Formoterol Fumarate (Symbicort 160-4.5 Inh) 2 puff Q12HR INH 08/29/16 21:00 09/12/16 08:42 Diltiazem HCl (Cardizem Cd) 360 mg DAILY PO 08/30/16 09:00 09/12/16 08:40 Fluconazole (Diflucan) 400 mg DAILY PO 08/30/16 09:00 09/12/16 08:41 Acetaminophen/ Hydrocodone Bitart ([place] 7.5-325 Mg) 1 tab TID PRN PO PAIN 08/29/16 18:30 09/11/16 20:55 Montelukast Sodium (Singulair) 10 mg HS PO 08/29/16 21:00 09/11/16 20:56 Pantoprazole Sodium (Protonix) 40 mg DAILY PO 08/30/16 09:00 09/12/16 08:41 Promethazine HCl/ Codeine (Phenergan-Codeine Liq) 5 ml Q4H PRN PO COUGH AND/OR COLD SYMPTOMS 08/29/16 18:30 09/12/16 10:13 Sucralfate (Carafate) 1 gm TID PO 08/30/16 09:00 09/12/16 11:17 IV Flush (NS Flush) 2 ml UNSCH PRN FLUSH FLUSH AFTER USING IV ACCESS 08/29/16 18:30 09/03/16 21:04 IV Flush (NS Flush) 2 ml BID FLUSH 08/29/16 21:00 09/12/16 08:43 Ondansetron HCl (Zofran Inj) 4 mg Q6H PRN IVP NAUSEA OR VOMITING 08/29/16 18:30 09/08/16 18:47 Lorazepam (Ativan) 0.5 mg BID PO 08/30/16 09:00 09/12/16 08:41 Hydromorphone HCl (Dilaudid Pf Inj) 0.5 mg Q4H PRN IV BREAKTHROUGH PAIN 08/30/16 23:15 09/09/16 04:19 Clonidine 0.1 mg 0.1 mg Q6H PRN PO SBP>160, DBP>90 09/02/16 23:45 09/09/16 05:21 Micafungin Sodium/ Sodium Chloride (Mycamine Inj/NS Inj) 100 ml @ 100 mls/hr Q24H IV 09/04/16 20:00 09/11/16 21:05 IV Flush (NS Flush) See Protocol DAILY IVF 09/05/16 09:00 09/11/16 09:00 Heparin Sodium (Porcine) (Heparin Central Flush) See Protocol DAILY IVF 09/05/16 09:00 09/12/16 08:43 Cefuroxime Axetil (Ceftin) 500 mg Q12HR PO 09/06/16 09:00 09/12/16 08:41 Potassium Chloride (KCl) 10 meq Q12HR PO 09/06/16 21:00 09/12/16 08:41 Theophylline (Samuel-24) 400 mg DAILY PO 09/08/16 09:00 09/12/16 09:12 Promethazine HCl (Phenergan Inj) 12.5 mg Q8H PRN IM NAUESA 09/08/16 20:15 09/08/16 21:40 Rivaroxaban (Xarelto) 15 mg BID@,18 PO 09/10/16 21:00 09/12/16 09:12 Prednisone (Deltasone) 20 mg BID PO 09/11/16 21:00 09/12/16 08:40 Furosemide (Lasix) 40 mg BID@,18 PO 09/12/16 09:00 09/12/16 08:41 Objective Remarks GENERAL: Middle aged male, sitting up in chair next to bed in nad. SKIN: Warm and dry. HEAD: Normocephalic. EYES: No scleral icterus. No injection or drainage. NECK: Supple, trachea midline. CARDIOVASCULAR: +S1/S2, mildly tachycardic RESPIRATORY: diminished at bases. prolonged expiratory phase. scattered wheeze GASTROINTESTINAL: Abdomen soft, non-tender, nondistended. Rectal: there is some dried blood noted. I do not appreciate any hemorrhoid or fissures EXTREMITIES: No cyanosis MUSCULOSKELETAL: Adequate muscle tone. NEUROLOGICAL: No obvious focal deficit. Awake, alert, and oriented x3. Assessment/Plan Problem List: (1) Acute hypercapnic respiratory failure Status: Acute (2) Thrombocytopenia Status: Resolved (3) Superficial thrombophlebitis Status: Acute (4) Pulmonary embolism Status: Acute (5) Acute asthma exacerbation Status: Acute (6) Warfarin-induced coagulopathy Status: Acute (7) Septic hip Status: Acute (8) Abscess of hip, right Status: Acute Assessment 51-year-old male with a past medical history of recurrent asthma attacks with recurrent hospital admissions, hypertension, hyperlipidemia, history of pulmonary embolism and DVT and also right hip wound infection who was admitted to the hospital with shortness of breath and exacerbation of asthma. Hematology has been consulted to evaluate this patient who has been on Coumadin for DVT and pulmonary embolism and has been difficult to manage due labile INR. He on he has persistent suboptimal therapeutic levels. 1. Hx of Pulmonary embolism and DVT-- in the setting of a hospital admission in december 2015 2. Labile and difficult to manage INR while on Coumadin 3. Infected right hip wound. 4. Exacerbation of asthma. Plan 1. update: will stop xarelto while having gib. await GI evaluation. plan to start parenteral heparin drip tomorrow AM, 24 hours after last dose of xarelto. 2. monitor CBC 3. consult GI for rectal bleeding. Attending Statement The exam, history, and the medical decision-making described in the above note were completed with the assistance of the mid-level provider. I reviewed and agree with the findings presented. I attest that I had a [id number] encounter with the patient on the same day, and personally performed and documented my assessment and findings in the medical record. discussed case with Dr. Woodward. In the setting of LGIB, stop Xarelto. GI evaluation. Start heparin tomorrow AM Problem Qualifiers (1) Acute asthma exacerbation: Qualified Code: J45.51 - Severe persistent asthma with acute exacerbation Berenice Lo Sep 12, 2016 12:06 Reuben Cali MD Sep 12, 2016 22:41
--- NOTE | 2016-09-12 13:03 | HHI.PR ---
Subjective Remarks Improved .less leg edema. On O2 2L.Off solumedrol .. No chest pain. Walked in halls. Objective Vital Signs Date Time Temp Pulse Resp B/P Pulse Ox O2 Delivery O2 Flow Rate FiO2 09/12/16 12:00 96.0 99 20 135/86 96 09/12/16 09:43 97 Nasal Cannula 3.00 09/12/16 08:00 95.8 85 18 129/91 93 09/12/16 04:26 97.3 105 18 137/87 95 09/12/16 00:55 97 Nasal Cannula 3.00 09/12/16 00:36 97.8 111 18 122/87 95 09/11/16 21:00 97.7 110 18 139/92 97 09/11/16 16:00 96.6 109 20 149/71 96 09/11/16 15:25 95 Nasal Cannula 3.00 I/O 09/11/16 09/11/16 09/11/16 09/12/16 09/12/16 09/12/16 07:00 15:00 23:00 07:00 15:00 23:00 Intake Total 100 ml 960 ml Output Total 1025 ml 1100 ml 3800 ml 1000 ml Balance -925 ml -140 ml -3800 ml -1000 ml Intake Oral 960 ml IV Total 100 ml Output Urine Total 1025 ml 1100 ml 3800 ml 1000 ml # Bowel Movements 0 2 0 Result Diagram: 09/12/16 0610 09/12/16 0610 Objective Remarks GENERAL: Mid aged W/M is alert.No distress. HEENT: Exam unremarkable. Eyes without icterus. Throat clear NECK: Without adenopathy or thyroid enlargement. Central trachea. CHEST: Decreased breath sounds and no wheeze.No crackles. CARDIAC: PMI distant. S1, S2 audible. No murmur or rub. ABDOMEN: No mass. Bowel sounds audible. EXTREMITIES: No clubbing, cyanosis but has 1 + edema. Assessment and Plan Assessment and Plan IMPRESSION 1. Asthma exacerbation. 2. Hypertension. 3. Status post DVT/PE. 4. Status post septic arthritis, right hip. 5. Anxiety/depression. Plan : 1. O2 at 2L. and wean to RA 2. Nebs qid , duoneb. 3. Cont Antibiotics per ID. 4. Cont prednisone 20 mg bid 5. IS and Acapella at bedside 6. Cont Symbicort 160/4.5 mcg . 2 puffs bid 7. Xanax .25 mg q4h PRN 8. Cont theodur 200 mg bid. 9. Lasix 40 mg po BID. 10. Up with help. Ashok Valdes MD Sep 12, 2016 13:03
[2016-09-12 13:46] LABS: INTERNATIONAL NORMALIZED RATIO 1.8 RATIO; PROTHROMBIN TIME - PATIENT 20.6 SEC (9.8-11.6)
[2016-09-12] MEDS: ACETAMINOPHEN/HYDROcodone 325 MG/7.5 MG TAB PO PRN (14:26)
--- NOTE | 2016-09-12 15:16 | PD.CONS ---
HPI History of Present Illness This is a 51 year old male with a past medical history of recurrent asthma attacks with recurrent hospital admissions, hypertension, hyperlipidemia, history of pulmonary embolism and DVT and also right hip wound infection who was admitted to the hospital with shortness of breath and exacerbation of asthma /COPD. GI was consulted for BRBPR that started last night and today. This is a significant amount of blood in the toilet with the bowel movement. He had a total of 3 BMs today, and every time, there was bleeding associated. He denies any hematemesis, nausea, or vomiting. He does not usually get heartburn or reflux, but does have epigastric pain and he usually takes Carafate before he eats with good symptomatic control. He denies any change in bowel movement. He had constipation for a while due to all the meds but resolved. Patient was seen by GI services back in July of last year and he under went EGD/ colonoscopy. EGD/colonoscopy on (07/10/16)----> irregular Z-line, bx negative for metaplasia or dysplasia, in the colon some stools through out the colon may have obstructed the visualization, two polyps in the sigmoid and transverse colon fulgurated, fissures, no active bleeding found. bx showed tubulovillous adenoma in the ascending and tubular adenoma in the transverse. Patient has been on Coumadin at home, however, recently this was discontinued due to fluctuating levels of INR. Hematology on the case, he was started on Xarelto, but this is on hold. Hgb is 10.5 which is stable. (Bam Diana) PFSH Past Medical History Asthma DVT PE Anxiety hyperlipidemia GERD Septic arthritis/right hip s/p arthroplasty Past Surgical History Right hip arthroplasty Appendectomy (Bam Diana) Coded Allergies: Tetracycline (Verified Allergy, Severe, throat swells, 08/29/16) Demerol (Verified Allergy, Intermediate, hallucinations, 08/29/16) Medications Current Medications Medications (Trade) Dose Ordered Sig/Gabi Route Start Time Stop Time Status Last Admin (Lipitor) 20 mg HS PO 08/29/16 21:00 09/11/16 20:56 (Symbicort 160-4.5 Inh) 2 puff Q12HR INH 08/29/16 21:00 09/12/16 08:42 (Cardizem Cd) 360 mg DAILY PO 08/30/16 09:00 09/12/16 08:40 (Diflucan) 400 mg DAILY PO 08/30/16 09:00 09/12/16 08:41 ([place] 7.5-325 Mg) 1 tab TID PRN PO 08/29/16 18:30 09/12/16 14:26 (Singulair) 10 mg HS PO 08/29/16 21:00 09/11/16 20:56 (Protonix) 40 mg DAILY PO 08/30/16 09:00 09/12/16 08:41 (Phenergan-Codeine Liq) 5 ml Q4H PRN PO 08/29/16 18:30 09/12/16 10:13 (Carafate) 1 gm TID PO 08/30/16 09:00 09/12/16 11:17 (NS Flush) 2 ml UNSCH PRN FLUSH 08/29/16 18:30 09/03/16 21:04 (NS Flush) 2 ml BID FLUSH 08/29/16 21:00 09/12/16 08:43 (Tylenol) 650 mg Q4H PRN PO 08/29/16 18:30 (Zofran Inj) 4 mg Q6H PRN IVP 08/29/16 18:30 09/08/16 18:47 (Narcan Inj) 0.4 mg UNSCH PRN IV 08/29/16 18:30 (Ativan) 0.5 mg BID PO 08/30/16 09:00 09/12/16 08:41 (Dilaudid Pf Inj) 0.5 mg Q4H PRN IV 08/30/16 23:15 09/09/16 04:19 Clonidine 0.1 mg 0.1 mg Q6H PRN PO 09/02/16 23:45 09/09/16 05:21 (Mycamine Inj/NS Inj) 100 ml @ 100 mls/hr Q24H IV 09/04/16 20:00 09/11/16 21:05 (NS Flush) See Protocol DAILY IVF 09/05/16 09:00 09/11/16 09:00 (NS Flush) See Protocol UNSCH PRN IVF 09/04/16 14:45 (Heparin Central Flush) See Protocol DAILY IVF 09/05/16 09:00 1/5/17 08:43 (Heparin Central Flush) See Protocol UNSCH PRN IVF 09/04/16 14:45 (NS Flush) See Protocol UNSCH PRN IVF 09/04/16 14:45 (Pill Splitter) 1 ea UNSCH PRN OTHER 09/05/16 13:15 (Ceftin) 500 mg Q12HR PO 09/06/16 09:00 09/12/16 08:41 (KCl) 10 meq Q12HR PO 09/06/16 21:00 09/12/16 08:41 (Samuel-24) 400 mg DAILY PO 09/08/16 09:00 09/12/16 09:12 (D50w (Vial) Inj) 25 ml UNSCH PRN IV PUSH 09/08/16 14:30 (Glucagon Inj) 1 mg UNSCH PRN OTHER 09/08/16 14:30 (Phenergan Inj) 12.5 mg Q8H PRN IM 09/08/16 20:15 09/08/16 21:40 (Deltasone) 20 mg BID PO 09/11/16 21:00 09/12/16 08:40 (Lasix) 40 mg BID@09,18 PO 09/12/16 09:00 09/12/16 08:41 Family History Father had pancreatic cancer Mother had a colostomy not sure why Social History No alcohol No smoking No illicit drug use (Bam Diana) Review of Systems Constitutional: DENIES: Fever, Chills Endocrine: DENIES: Polyuria Eyes: DENIES: Double Vision Ears, nose, mouth, throat: DENIES: Hoarseness Respiratory: COMPLAINS OF: Shortness of breath Cardiovascular: DENIES: Lower Extremity Edema Gastrointestinal: COMPLAINS OF: Abdominal pain, Bloody stools, DENIES: Black stools, Constipation, Diarrhea, Nausea, Vomiting, Difficulty Swallowing, Anorexia, Odynophagia, Swelling of Abdomen, Heartburn, Hematemesis Genitourinary: DENIES: Nocturia Musculoskeletal: DENIES: Joint Swelling, Neck pain Integumentary: DENIES: Jaundice Hematologic/lymphatic: DENIES: Lymphadenopathy Immunologic/allergic: DENIES: Eczema Neurologic: DENIES: Abnormal gait Psychiatric: DENIES: Anxiety (Bam Diana) GI Exam Vitals I&O Vital Signs Date Time Temp Pulse Resp B/P Pulse Ox O2 Delivery O2 Flow Rate FiO2 09/12/16 12:00 96.0 99 20 135/86 96 09/12/16 09:43 97 Nasal Cannula 3.00 09/12/16 08:00 95.8 85 18 129/91 93 09/12/16 04:26 97.3 105 18 137/87 95 09/12/16 00:55 97 Nasal Cannula 3.00 09/12/16 00:36 97.8 111 18 122/87 95 09/11/16 21:00 97.7 110 18 139/92 97 09/11/16 16:00 96.6 109 20 149/71 96 09/11/16 15:25 95 Nasal Cannula 3.00 I/O 09/11/16 09/11/16 09/11/16 09/12/16 09/12/16 09/12/16 07:00 15:00 23:00 07:00 15:00 23:00 Intake Total 100 ml 960 ml Output Total 1025 ml 1100 ml 3800 ml 1000 ml Balance -925 ml -140 ml -3800 ml -1000 ml Intake Oral 960 ml IV Total 100 ml Output Urine Total 1025 ml 1100 ml 3800 ml 1000 ml # Bowel Movements 0 2 0 Imaging Last Impressions Chest X-Ray 09/06/16 0600 Signed Impressions: Service Date/Time: Tuesday, September 06, 2016 05:15 - CONCLUSION: No acute disease. Davion Carranza MD Hip X-Ray 09/03/16 0000 Signed Impressions: Service Date/Time: Saturday, September 03, 2016 11:41 - CONCLUSION: 1. No acute fracture or joint dislocation. 2. Right hip prosthesis appears to be grossly intact. Tyler Mast MD CT Angiography 08/29/16 1609 Signed Impressions: Service Date/Time: August 16:50 - CONCLUSION: No evidence of pulmonary embolism. Minimal bibasilar atelectasis. Cardiomegaly and coronary artery calcifications. Samuel King MD Laboratory Test 09/11/16 09/12/16 09/12/16 14:50 06:10 13:25 Prothrombin Time 29.1 SEC 20.6 SEC Prothromb Time International 2.5 RATIO 1.8 RATIO Ratio White Blood Count 12.0 TH/MM3 Red Blood Count 4.46 MIL/MM3 Hemoglobin 10.5 GM/DL Hematocrit 33.2 % Mean Corpuscular Volume 74.4 FL Mean Corpuscular Hemoglobin 23.5 PG Mean Corpuscular Hemoglobin 31.5 % Concent Red Cell Distribution Width 24.2 % Platelet Count 163 TH/MM3 Mean Platelet Volume 6.8 FL Neutrophils (%) (Auto) 89.1 % Lymphocytes (%) (Auto) 4.8 % Monocytes (%) (Auto) 5.6 % Eosinophils (%) (Auto) 0.1 % Basophils (%) (Auto) 0.4 % Neutrophils # (Auto) 10.7 TH/MM3 Lymphocytes # (Auto) 0.6 TH/MM3 Monocytes # (Auto) 0.7 TH/MM3 Eosinophils # (Auto) 0.0 TH/MM3 Basophils # (Auto) 0.0 TH/MM3 CBC Comment AUTO DIFF Differential Total Cells 100 Counted Neutrophils % (Manual) 87 % Lymphocytes % 5 % Monocytes % 5 % Neutrophils # (Manual) 10.8 TH/MM3 Metamyelocytes 2 % Myelocytes 1 % Differential Comment FINAL DIFF MANUAL Platelet Estimate NORMAL Platelet Morphology Comment NORMAL Sodium Level 137 MEQ/L Potassium Level 4.1 MEQ/L Chloride Level 99 MEQ/L Carbon Dioxide Level 30.7 MEQ/L Anion Gap 7 MEQ/L Blood Urea Nitrogen 21 MG/DL Creatinine 0.88 MG/DL Estimat Glomerular Filtration 91 ML/MIN Rate Random Glucose 167 MG/DL Calcium Level 8.5 MG/DL Total Bilirubin 0.6 MG/DL Aspartate Amino Transf 22 U/L (AST/SGOT) Alanine Aminotransferase 119 U/L (ALT/SGPT) Alkaline Phosphatase 104 U/L Total Protein 5.6 GM/DL Albumin 3.1 GM/DL Physical Examination HEENT: normocephalic; atraumatic; no jaundice. NECK: Neck is supple, no JVD, no lymphadenopathy. CHEST: scattered end expiratory wheezes CARDIAC: Regular rate and rhythm with no murmur gallop or rubs. ABDOMEN: Soft, nondistended, nontender; no hepatosplenomegaly; bowel sounds are present in all four quadrants. EXTREMITIES: No clubbing, cyanosis, or edema. SKIN: surgical wound to the right hip FORENSIC ECONOMIST: No focal deficits; alert and oriented times three. (Bam Diana) Assessment and Plan Plan - BRBPR. BRBPR filling the toilet with bowel movements yesterday and today, hgb is stable at 10 EGD/colonoscopy on (07/10/16)----> irregular Z-line, bx negative for metaplasia or dysplasia, in the colon some stools through out the colon may have obstructed the visualization, two polyps in the sigmoid and transverse colon fulgurated, fissures, no active bleeding found. bx showed tubulovillous adenoma in the ascending and tubular adenoma in the transverse. - Asthma/COPD exacerbation- Pulmonology on the case, steroids, breathing tx - Right hip abscess, S/P I&D and arthroplasty- ID on the case - Hx RLE DVT/PE was on Coumadin, but that was discontinued due to trouble regulating INR, Xarelto started but discontinued, hematology on the case PLAN: - Plan colonoscopy in am - Obtain consents - Clear liquids - NPO after MN - Golytely prep - Monitor hh - Transfuse as needed - Notify GI for active bleed - Supportive care - Further recommendations to follow based on results of above - Pt seen and examined by Dr. Bridges and myself and this note is written on his behalf (Bam Diana) Physician Comments Patient was seen and examined, agree with above note and plan, plan colonoscopy in am (Eliot Bridges MD) Bam Diana Sep 12, 2016 15:16 Eliot Bridges MD Sep 12, 2016 20:35
[2016-09-12] MEDS: ONDANSETRON HCL 4 MG/2 ML VIAL IVP PRN (15:47)
[2016-09-12] MEDS ORDERED: PEG (High)/E-LYTE SOLN 4000 ML BTL PO ONE (16:00)
--- NOTE | 2016-09-12 16:02 | HHI.PR ---
Subjective History of Present Illness Patient feeling weak and tired still wheezing but better have extremity edema better on lasix 40 mg IV BID. ... Patient have bleeding from rectum and nose with xarelto d/w hematology Dr Reuben Cali he said he will discontinue Xarelto... and start him back on Coumadin. Review of Systems Constitutional Constitutional: Fatigue, Weakness Pulmonary Respiratory: Coughing, Shortness of Breath, Wheezing Cardiology CV Remarks extremity edema. Allergic/Immunologic Allergic/Immunologic: Asthma Vitals/Results Intake & Output 09/11/16 09/11/16 09/12/16 15:00 23:00 07:00 Intake Total 960 ml Output Total 1100 ml 3800 ml 1000 ml Balance -140 ml -3800 ml -1000 ml Intake Oral 960 ml Output Urine Total 1100 ml 3800 ml 1000 ml # Bowel Movements 0 2 0 Vital Signs Vital Signs Date Time Temp Pulse Resp B/P Pulse Ox O2 Delivery O2 Flow Rate FiO2 09/12/16 12:00 96.0 99 20 135/86 96 09/12/16 09:43 97 Nasal Cannula 3.00 09/12/16 08:00 95.8 85 18 129/91 93 09/12/16 04:26 97.3 105 18 137/87 95 09/12/16 00:55 97 Nasal Cannula 3.00 09/12/16 00:36 97.8 111 18 122/87 95 09/11/16 21:00 97.7 110 18 139/92 97 09/11/16 16:00 96.6 109 20 149/71 96 CBC/BMP: 09/12/16 0610 09/12/16 0610 Lab Results Laboratory Tests Test 09/12/16 09/12/16 06:10 13:25 White Blood Count 12.0 TH/MM3 Red Blood Count 4.46 MIL/MM3 Hemoglobin 10.5 GM/DL Hematocrit 33.2 % Mean Corpuscular Volume 74.4 FL Mean Corpuscular Hemoglobin 23.5 PG Mean Corpuscular Hemoglobin 31.5 % Concent Red Cell Distribution Width 24.2 % Platelet Count 163 TH/MM3 Mean Platelet Volume 6.8 FL Neutrophils (%) (Auto) 89.1 % Lymphocytes (%) (Auto) 4.8 % Monocytes (%) (Auto) 5.6 % Eosinophils (%) (Auto) 0.1 % Basophils (%) (Auto) 0.4 % Neutrophils # (Auto) 10.7 TH/MM3 Lymphocytes # (Auto) 0.6 TH/MM3 Monocytes # (Auto) 0.7 TH/MM3 Eosinophils # (Auto) 0.0 TH/MM3 Basophils # (Auto) 0.0 TH/MM3 CBC Comment AUTO DIFF Differential Total Cells 100 Counted Neutrophils % (Manual) 87 % Lymphocytes % 5 % Monocytes % 5 % Neutrophils # (Manual) 10.8 TH/MM3 Metamyelocytes 2 % Myelocytes 1 % Differential Comment FINAL DIFF MANUAL Platelet Estimate NORMAL Platelet Morphology Comment NORMAL Sodium Level 137 MEQ/L Potassium Level 4.1 MEQ/L Chloride Level 99 MEQ/L Carbon Dioxide Level 30.7 MEQ/L Anion Gap 7 MEQ/L Blood Urea Nitrogen 21 MG/DL Creatinine 0.88 MG/DL Estimat Glomerular Filtration 91 ML/MIN Rate Random Glucose 167 MG/DL Calcium Level 8.5 MG/DL Total Bilirubin 0.6 MG/DL Aspartate Amino Transf 22 U/L (AST/SGOT) Alanine Aminotransferase 119 U/L (ALT/SGPT) Alkaline Phosphatase 104 U/L Total Protein 5.6 GM/DL Albumin 3.1 GM/DL Prothrombin Time 20.6 SEC Prothromb Time International 1.8 RATIO Ratio Physical Exam General General Appearance: Well Developed, Well Nourished, No Acute Distress, Comfortable, Anxious Eyes Eye Exam: Pupils Equal, Sclera White, Extraocular Movement Intact Ears & Nose Ears & Nose Exam: Nasal Mucosa [place] Throat Throat Exam: Oral Mucosa [place] & Moist Neck Neck Exam: Neck Supple, Trachea Midline Pulmonary Resp Exam: Breath Sounds Equal, No Distress, Rhonchi Resp Remarks bilateral wheezing. Cardiology CV Exam: Regular, Normal Sinus Rhythm Gastrointestinal/Abdomen GI Exam: Soft, Non-Tender, Bowel Sounds Present Musculoskeletal MS Exam: Normal Tone Integumentary Skin Exam: Warm, Dry Skin Remarks right hip wound. Extremeties Extremities Exam: No Edema, Pedal Pulses Palpable, Moderate Edema, Pitting Edema Extremeties Remarks tenderness right hip. Neurologic Neuro Exam: Alert, Awake, Oriented, Speech Clear, Moving All Extremities Psychiatric Psych Exam: Appropriate Responses PUD Prophylasis PUD Prophylaxis: Protonix Assessment/Plan Assessment/Plan Assessment and Plan 1. Acute asthma/ COPD exacerbation with respiratory failure/insufficiency on admission...on bronchodilator steroids and antibiotic. 2. S/P Coumadin toxicity. 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 4. Tachycardia. 5. Hypertension. 6. History of depression and anxiety. 7. History of DVT and PE. holding coumadin Patient have bleeding from rectum and nose with xarelto d/w hematology Dr Reuben Cali he said he will discontinue Xarelto... and start him back on Coumadin. 8. Arthritis. 9. History of hyperlipidemia. 10. Gastroesophageal reflux disease (GERD). PLAN: Lasix 40 mg IV BID. Continue oxygen , keep saturation above 92%. IV steroid Aerosol treatment qid & q2 hrs prn continue with Symbicort twice daily Continue Singulair On Theophylline Antitussives when necessary Continue with Xanax dose 0.5 q 8 hr PO Ceftin BID. IV micafungin / and Diflucan..ID Input noted. Analgesics Wound care hold coumadin , f/u INR Continue to hold Coumadin consulted hematology for other anticoagulation to consider. cont Cardizem Proton pump inhibitor for GI prophylaxis. d/w PT Will follow Check CBC with diff CMP in AM. Discussed Condition with: Patient Myron Woodward MD Sep 12, 2016 16:02
[2016-09-12] MEDS: PROMETHAZINE INJ 25 MG/ML VIAL IM PRN (19:20)
[2016-09-12] MEDS: MONTELUKAST SODIUM 10 MG TAB PO SCH (20:42)
[2016-09-12] MEDS: MICAFUNGIN INJ 150 MG in SODIUM CHLORIDE 0.9% INJ 100 ML IV SCH (20:42)
[2016-09-12] MEDS: ATORVASTATIN 20 MG TAB PO SCH (20:42)
[2016-09-12 22:16] LABS: ALKALINE PHOSPHATASE 121 U/L (45-117); ALT (GPT) 122 U/L (12-78); ANION GAP 14 MEQ/L (5-15); AST (GOT) 38 U/L (15-37); BICARBONATE 26.1 MEQ/L (21.0-32.0); BLOOD UREA NITROGEN 18 MG/DL (7-18); CHLORIDE 96 MEQ/L (98-107); GLOMERULAR FILTRATION RATE 83 ML/MIN (>89); POTASSIUM 3.4 MEQ/L (3.5-5.1); SODIUM (NA) 136 MEQ/L (136-145); TOTAL BILIRUBIN ADULT 0.5 MG/DL (0.2-1.0)
[2016-09-13] VITALS (11 sets, daily range): BP systolic 110–146; BP diastolic 79–87; PULSE 94–128; RESP 17–20; TEMP 95.5–98.8; O2SAT 93–97
[2016-09-13] MEDS: RESP: ALBUTEROL 2.5 MG/3 ML NEB (PRN) NEB (03:48)
--- NOTE | 2016-09-13 05:54 | HHI.PR ---
Subjective History of Present Illness Patient feeling weak and tired still wheezing started back on solumedrol IV.. have extremity edema better on lasix 40 mg IV BID...changed to daily.. ... Patient have episode bleeding yesterday from rectum and nose with xarelto discontinued Xarelto... on heparin gtt Review of Systems Constitutional Constitutional: Fatigue, Weakness Pulmonary Respiratory: Coughing, Shortness of Breath, Wheezing Cardiology CV Remarks extremity edema. Allergic/Immunologic Allergic/Immunologic: Asthma Vitals/Results Intake & Output 09/12/16 09/12/16 09/13/16 15:00 23:00 07:00 Intake Total 1200 ml Output Total 1650 ml 900 ml Balance -450 ml -900 ml Intake Oral 1200 ml Output Urine Total 1650 ml 900 ml # Bowel Movements 3 0 Vital Signs Vital Signs Date Time Temp Pulse Resp B/P Pulse Ox O2 Delivery O2 Flow Rate FiO2 09/13/16 03:52 94 Nasal Cannula 09/13/16 01:46 96.1 94 19 142/84 94 09/12/16 21:16 96.3 98 20 136/86 96 09/12/16 16:00 96.2 108 20 127/82 93 09/12/16 12:00 96.0 99 20 135/86 96 09/12/16 09:43 97 Nasal Cannula 3.00 09/12/16 08:00 95.8 85 18 129/91 93 CBC/BMP: 09/12/16 0610 09/12/16 2127 Lab Results Laboratory Tests Test 09/12/16 09/12/16 09/12/16 06:10 13:25 21:27 White Blood Count 12.0 TH/MM3 Red Blood Count 4.46 MIL/MM3 Hemoglobin 10.5 GM/DL Hematocrit 33.2 % Mean Corpuscular Volume 74.4 FL Mean Corpuscular Hemoglobin 23.5 PG Mean Corpuscular Hemoglobin 31.5 % Concent Red Cell Distribution Width 24.2 % Platelet Count 163 TH/MM3 Mean Platelet Volume 6.8 FL Neutrophils (%) (Auto) 89.1 % Lymphocytes (%) (Auto) 4.8 % Monocytes (%) (Auto) 5.6 % Eosinophils (%) (Auto) 0.1 % Basophils (%) (Auto) 0.4 % Neutrophils # (Auto) 10.7 TH/MM3 Lymphocytes # (Auto) 0.6 TH/MM3 Monocytes # (Auto) 0.7 TH/MM3 Eosinophils # (Auto) 0.0 TH/MM3 Basophils # (Auto) 0.0 TH/MM3 CBC Comment AUTO DIFF Differential Total Cells 100 Counted Neutrophils % (Manual) 87 % Lymphocytes % 5 % Monocytes % 5 % Neutrophils # (Manual) 10.8 TH/MM3 Metamyelocytes 2 % Myelocytes 1 % Differential Comment FINAL DIFF MANUAL Platelet Estimate NORMAL Platelet Morphology Comment NORMAL Sodium Level 137 MEQ/L 136 MEQ/L Potassium Level 4.1 MEQ/L 3.4 MEQ/L Chloride Level 99 MEQ/L 96 MEQ/L Carbon Dioxide Level 30.7 MEQ/L 26.1 MEQ/L Anion Gap 7 MEQ/L 14 MEQ/L Blood Urea Nitrogen 21 MG/DL 18 MG/DL Creatinine 0.88 MG/DL 0.95 MG/DL Estimat Glomerular Filtration 91 ML/MIN 83 ML/MIN Rate Random Glucose 167 MG/DL 230 MG/DL Calcium Level 8.5 MG/DL 8.3 MG/DL Total Bilirubin 0.6 MG/DL 0.5 MG/DL Aspartate Amino Transf 22 U/L 38 U/L (AST/SGOT) Alanine Aminotransferase 119 U/L 122 U/L (ALT/SGPT) Alkaline Phosphatase 104 U/L 121 U/L Total Protein 5.6 GM/DL 5.8 GM/DL Albumin 3.1 GM/DL 3.2 GM/DL Prothrombin Time 20.6 SEC Prothromb Time International 1.8 RATIO Ratio Physical Exam General General Appearance: Well Developed, Well Nourished, No Acute Distress, Comfortable, Anxious Eyes Eye Exam: Pupils Equal, Sclera White, Extraocular Movement Intact Ears & Nose Ears & Nose Exam: Nasal Mucosa [place] Throat Throat Exam: Oral Mucosa [place] & Moist Neck Neck Exam: Neck Supple, Trachea Midline Pulmonary Resp Exam: Breath Sounds Equal, No Distress, Rhonchi Resp Remarks bilateral wheezing. Cardiology CV Exam: Regular, Normal Sinus Rhythm Gastrointestinal/Abdomen GI Exam: Soft, Non-Tender, Bowel Sounds Present Musculoskeletal MS Exam: Normal Tone Integumentary Skin Exam: Warm, Dry Skin Remarks right hip wound. Extremeties Extremities Exam: No Edema, Pedal Pulses Palpable, Moderate Edema, Pitting Edema Extremeties Remarks tenderness right hip. Neurologic Neuro Exam: Alert, Awake, Oriented, Speech Clear, Moving All Extremities Psychiatric Psych Exam: Appropriate Responses PUD Prophylasis PUD Prophylaxis: Protonix Assessment/Plan Assessment/Plan Assessment and Plan 1. Acute asthma/ COPD exacerbation with respiratory failure/insufficiency on admission...on bronchodilator solumedrol and antibiotic. 2. S/P Coumadin toxicity. 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 4. Tachycardia. 5. Hypertension. 6. History of depression and anxiety. 7. History of DVT and PE. Patient have episode of bleeding from rectum and nose with xarelto d/w hematology Dr Reuben Cali discontinued Xarelto. on heparin gtt...will be on coumadin. 8. Arthritis. 9. History of hyperlipidemia. 10. Gastroesophageal reflux disease (GERD). PLAN: Lasix 40 mg IV Daily. Continue oxygen , keep saturation above 92%. IV steroid Aerosol treatment qid & q2 hrs prn continue with Symbicort twice daily Continue Singulair On Theophylline Antitussives when necessary Continue with Xanax dose 0.5 q 8 hr PO Ceftin BID. IV micafungin / and Diflucan..ID Input noted. Analgesics Wound care hold coumadin , f/u INR Continue to hold Coumadin on heparin gtt. cont Cardizem Proton pump inhibitor for GI prophylaxis. d/w PT Will follow Check CBC with diff CMP in AM. Discussed Condition with: Patient Myron Woodward MD Sep 13, 2016 05:54
[2016-09-13 06:00] LABS: HEMATOCRIT 33.7 % (39.0-51.0); MEAN CELL VOLUME 74.8 FL (80.0-100.0); MEAN CORPUSCULAR HEMOGLOBIN 23.6 PG (27.0-34.0); MEAN CORPUSCULAR HGB CONC 31.5 % (32.0-36.0); PLATELET COUNT 163 TH/MM3 (150-450); RED BLOOD COUNT 4.51 MIL/MM3 (4.50-5.90); WHITE BLOOD COUNT 14.6 TH/MM3 (4.0-11.0)
[2016-09-13 06:08] LABS: REVIEW FLAG FINAL
[2016-09-13] MEDS: INSULIN ASPART SUPPLEMENTAL SCALE SQ SCH ×4 (06:37→20:51)
[2016-09-13] MEDS: RESP: ALBUTEROL 2.5 MG/IPRATROPIUM 0.5 MG NEB (SCH) NEB ×4 (07:49→19:22)
--- NOTE | 2016-09-13 08:13 | PD.ONC.PN ---
Subjective Subjective Remarks Afebrile overnight. Patient resting comfortably. He complains of some pain in his right thigh. He is NPO for colonoscopy today and has not been able to have his usual PO pain medications. The nurse is getting ready to give him IV Dilaudid. Objective Data Date Time Temp Pulse Resp B/P Pulse Ox O2 Delivery O2 Flow Rate FiO2 09/13/16 07:49 95 Nasal Cannula 3.00 09/13/16 04:00 96.0 97 20 130/84 95 09/13/16 03:52 94 Nasal Cannula 09/13/16 01:46 96.1 94 19 142/84 94 09/12/16 21:16 96.3 98 20 136/86 96 09/12/16 20:00 112 09/12/16 16:00 96.2 108 20 127/82 93 09/12/16 12:00 96.0 99 20 135/86 96 09/12/16 09:43 97 Nasal Cannula 3.00 09/13/16 09/13/16 09/13/16 07:00 15:00 23:00 Output Total 1100 ml Balance -1100 ml Result Diagram: 09/13/16 0545 09/12/16 2127 Laboratory Results Laboratory Tests Test 09/12/16 09/12/16 09/13/16 13:25 21:27 05:45 Prothrombin Time 20.6 SEC Prothromb Time International 1.8 RATIO Ratio Sodium Level 136 MEQ/L Potassium Level 3.4 MEQ/L Chloride Level 96 MEQ/L Carbon Dioxide Level 26.1 MEQ/L Anion Gap 14 MEQ/L Blood Urea Nitrogen 18 MG/DL Creatinine 0.95 MG/DL Estimat Glomerular Filtration 83 ML/MIN Rate Random Glucose 230 MG/DL Calcium Level 8.3 MG/DL Total Bilirubin 0.5 MG/DL Aspartate Amino Transf 38 U/L (AST/SGOT) Alanine Aminotransferase 122 U/L (ALT/SGPT) Alkaline Phosphatase 121 U/L Total Protein 5.8 GM/DL Albumin 3.2 GM/DL White Blood Count 14.6 TH/MM3 Red Blood Count 4.51 MIL/MM3 Hemoglobin 10.6 GM/DL Hematocrit 33.7 % Mean Corpuscular Volume 74.8 FL Mean Corpuscular Hemoglobin 23.6 PG Mean Corpuscular Hemoglobin 31.5 % Concent Red Cell Distribution Width 24.0 % Platelet Count 163 TH/MM3 Mean Platelet Volume 7.2 FL Administered Medications Medications (Trade) Dose Ordered Sig/Gabi Route PRN Reason Start Time Stop Time Status Last Admin Dose Admin Atorvastatin Calcium (Lipitor) 20 mg HS PO 08/29/16 21:00 09/12/16 20:42 Budesonide/ Formoterol Fumarate (Symbicort 160-4.5 Inh) 2 puff Q12HR INH 08/29/16 21:00 09/12/16 20:42 Diltiazem HCl (Cardizem Cd) 360 mg DAILY PO 08/30/16 09:00 09/12/16 08:40 Fluconazole (Diflucan) 400 mg DAILY PO 08/30/16 09:00 09/12/16 08:41 Acetaminophen/ Hydrocodone Bitart ([place] 7.5-325 Mg) 1 tab TID PRN PO PAIN 08/29/16 18:30 09/12/16 14:26 Montelukast Sodium (Singulair) 10 mg HS PO 08/29/16 21:00 09/12/16 20:42 Pantoprazole Sodium (Protonix) 40 mg DAILY PO 08/30/16 09:00 09/12/16 08:41 Promethazine HCl/ Codeine (Phenergan-Codeine Liq) 5 ml Q4H PRN PO COUGH AND/OR COLD SYMPTOMS 08/29/16 18:30 09/12/16 10:13 Sucralfate (Carafate) 1 gm TID PO 08/30/16 09:00 09/12/16 15:47 IV Flush (NS Flush) 2 ml UNSCH PRN FLUSH FLUSH AFTER USING IV ACCESS 08/29/16 18:30 09/03/16 21:04 IV Flush (NS Flush) 2 ml BID FLUSH 08/29/16 21:00 09/12/16 20:43 Ondansetron HCl (Zofran Inj) 4 mg Q6H PRN IVP NAUSEA OR VOMITING 08/29/16 18:30 09/12/16 15:47 Lorazepam (Ativan) 0.5 mg BID PO 08/30/16 09:00 09/12/16 20:43 Hydromorphone HCl (Dilaudid Pf Inj) 0.5 mg Q4H PRN IV BREAKTHROUGH PAIN 08/30/16 23:15 09/09/16 04:19 Clonidine 0.1 mg 0.1 mg Q6H PRN PO SBP>160, DBP>90 09/02/16 23:45 09/09/16 05:21 Micafungin Sodium/ Sodium Chloride (Mycamine Inj/NS Inj) 100 ml @ 100 mls/hr Q24H IV 09/04/16 20:00 09/12/16 20:42 IV Flush (NS Flush) See Protocol DAILY IVF 09/05/16 09:00 09/11/16 09:00 Heparin Sodium (Porcine) (Heparin Central Flush) See Protocol DAILY IVF 09/05/16 09:00 09/12/16 08:43 Cefuroxime Axetil (Ceftin) 500 mg Q12HR PO 09/06/16 09:00 09/12/16 20:43 Potassium Chloride (KCl) 10 meq Q12HR PO 09/06/16 21:00 09/12/16 20:43 Theophylline (Samuel-24) 400 mg DAILY PO 09/08/16 09:00 09/12/16 09:12 Promethazine HCl (Phenergan Inj) 12.5 mg Q8H PRN IM NAUESA 09/08/16 20:15 09/12/16 19:20 Prednisone (Deltasone) 20 mg BID PO 09/11/16 21:00 09/12/16 20:43 Furosemide (Lasix) 40 mg BID@09,18 PO 09/12/16 09:00 09/12/16 15:47 Objective Remarks GENERAL: Pleasant middle aged male, sitting up in bed in [facility]. SKIN: Warm and dry. HEAD: Normocephalic. EYES: No injection or drainage. NECK: Supple, trachea midline. CARDIOVASCULAR: Regular rate and rhythm RESPIRATORY: Breath sounds equal bilaterally. No accessory muscle use. GASTROINTESTINAL: Abdomen soft, non-tender, nondistended. EXTREMITIES: No cyanosis NEUROLOGICAL: No obvious focal deficit. Awake, alert, and oriented x3. Assessment/Plan Problem List: (1) Acute hypercapnic respiratory failure Status: Acute (2) Thrombocytopenia Status: Resolved (3) Superficial thrombophlebitis Status: Acute (4) Pulmonary embolism Status: Acute (5) Acute asthma exacerbation Status: Acute (6) Warfarin-induced coagulopathy Status: Acute (7) Septic hip Status: Acute (8) Abscess of hip, right Status: Acute Assessment 51-year-old male with a past medical history of recurrent asthma attacks with recurrent hospital admissions, hypertension, hyperlipidemia, history of pulmonary embolism and DVT and also right hip wound infection who was admitted to the hospital with shortness of breath and exacerbation of asthma. Hematology has been consulted to evaluate this patient who has been on Coumadin for DVT and pulmonary embolism and has been difficult to manage due labile INR. He on he has persistent suboptimal therapeutic levels. 1. Hx of Pulmonary embolism and DVT-- in the setting of a hospital admission in december 2015 2. Labile and difficult to manage INR while on Coumadin 3. Infected right hip wound. 4. Exacerbation of asthma. Plan 1. colonoscopy today. plan to start heparin post-procedure 2. monitor CBC Attending Statement The exam, history, and the medical decision-making described in the above note were completed with the assistance of the mid-level provider. I reviewed and agree with the findings presented. I attest that I had a [id number] encounter with the patient on the same day, and personally performed and documented my assessment and findings in the medical record. Colonoscopy deferred by GI no further bleeding start IV heparin and Coumadin tomorrow of no bleeding--INR goal 2-3 Problem Qualifiers (1) Acute asthma exacerbation: Qualified Code: J45.51 - Severe persistent asthma with acute exacerbation Berenice Lo Sep 13, 2016 08:13 Reuben Cali MD Sep 13, 2016 21:09
[2016-09-13] MEDS: LACTATED RINGER'S 1000 ML IV SCH (08:30)
[2016-09-13] MEDS ORDERED: METOPROLOL TARTRATE 25 MG TAB PO PRN (08:30)
[2016-09-13] MEDS ORDERED: SODIUM CHLORID 0.9% 500 ML IV SCH (08:30)
[2016-09-13] MEDS ORDERED: INSULIN HUMAN REGULAR 1,000 UNITS/10 ML VIAL SQ PRN (08:30)
[2016-09-13] MEDS: DILTIAZEM-CD 180 MG CAP ER PO SCH (09:00)
[2016-09-13] MEDS: CEFUROXIME AXETIL 500 MG TAB PO SCH ×2 (09:00→20:49)
[2016-09-13] MEDS: SODIUM CHLORIDE 0.9% FLUSH 5 ML FLUSH FLUSH SCH ×2 (09:00→21:00)
[2016-09-13] MEDS: POTASSIUM CHLORIDE 10 MEQ CONTROLLED RELEASE TAB PO SCH ×2 (09:00→20:50)
[2016-09-13] MEDS: FLUCONAZOLE 200 MG TAB PO SCH (09:00)
[2016-09-13] MEDS: PANTOPRAZOLE SOD 40 MG DELAYED RELEASE TAB PO SCH (09:00)
[2016-09-13] MEDS: predniSONE 20 MG TAB PO SCH ×2 (09:00→20:50)
[2016-09-13] MEDS: THEOPHYLLINE 200 MG EXTENDED RELEASE CAP PO SCH (09:00)
[2016-09-13] MEDS: SUCRALFATE 1 GM TAB PO SCH ×3 (09:00→17:01)
[2016-09-13] MEDS: FUROSEMIDE 40 MG TAB PO SCH ×2 (09:00→17:01)
[2016-09-13] MEDS ORDERED: PROPOFOL 200 MG/20 ML AMP IV ONE (09:19)
--- NOTE | 2016-09-13 09:34 | HHI.GIFU ---
Subjective Remarks feels ok, no new complains, did not tolerate prep Objective Vitals I&O Vital Signs Date Time Temp Pulse Resp B/P Pulse Ox O2 Delivery O2 Flow Rate FiO2 09/13/16 09:12 96.0 97 20 130/84 95 09/13/16 07:49 95 Nasal Cannula 3.00 09/13/16 04:00 96.0 97 20 130/84 95 09/13/16 03:52 94 Nasal Cannula 09/13/16 01:46 96.1 94 19 142/84 94 09/12/16 21:16 96.3 98 20 136/86 96 09/12/16 20:00 112 09/12/16 16:00 96.2 108 20 127/82 93 09/12/16 12:00 96.0 99 20 135/86 96 09/12/16 09:43 97 Nasal Cannula 3.00 I/O 09/12/16 09/12/16 09/12/16 09/13/16 09/13/16 09/13/16 07:00 15:00 23:00 07:00 15:00 23:00 Intake Total 1200 ml Output Total 1000 ml 1650 ml 900 ml 1100 ml Balance -1000 ml -450 ml -900 ml -1100 ml Intake Oral 1200 ml Output Urine Total 1000 ml 1650 ml 900 ml 1100 ml # Bowel Movements 0 3 0 0 Laboratory Laboratory Tests Test 09/12/16 09/12/16 09/13/16 13:25 21:27 05:45 Prothrombin Time 20.6 Prothromb Time International 1.8 Ratio Sodium Level 136 Potassium Level 3.4 Chloride Level 96 Carbon Dioxide Level 26.1 Anion Gap 14 Blood Urea Nitrogen 18 Creatinine 0.95 Estimat Glomerular Filtration 83 Rate Random Glucose 230 Calcium Level 8.3 Total Bilirubin 0.5 Aspartate Amino Transf 38 (AST/SGOT) Alanine Aminotransferase 122 (ALT/SGPT) Alkaline Phosphatase 121 Total Protein 5.8 Albumin 3.2 White Blood Count 14.6 Red Blood Count 4.51 Hemoglobin 10.6 Hematocrit 33.7 Mean Corpuscular Volume 74.8 Mean Corpuscular Hemoglobin 23.6 Mean Corpuscular Hemoglobin 31.5 Concent Red Cell Distribution Width 24.0 Platelet Count 163 Mean Platelet Volume 7.2 Physical Exam HEENT: Pupils round and reactive to light; normocephalic; atraumatic; no jaundice. Throat is clear. NECK: Neck is supple, no JVD, no lymphadenopathy. CHEST: Chest is clear to auscultation and percussion. CARDIAC: Regular rate and rhythm with no murmur gallop or rubs. ABDOMEN: Soft, nondistended, nontender; no hepatosplenomegaly; bowel sounds are present in all four quadrants. EXTREMITIES: No clubbing, cyanosis, or edema. SKIN: Normal; no rash; no jaundice. GROUP HOME COUNSELOR: No focal deficits; alert and oriented times three. Assessment and Plan Plan - BRBPR. BRBPR filling the toilet with bowel movements yesterday and today, hgb is stable at 10 EGD/colonoscopy on (07/10/16)----> irregular Z-line, bx negative for metaplasia or dysplasia, in the colon some stools through out the colon may have obstructed the visualization, two polyps in the sigmoid and transverse colon fulgurated, fissures, no active bleeding found. bx showed tubulovillous adenoma in the ascending and tubular adenoma in the transverse. - Asthma/COPD exacerbation- Pulmonology on the case, steroids, breathing tx - Right hip abscess, S/P I&D and arthroplasty- ID on the case - Hx RLE DVT/PE was on Coumadin, but that was discontinued due to trouble regulating INR, Xarelto started but discontinued, hematology on the case 1-02-22 rectal bleed, none today, colonoscopy showed poor prep rectal fissure and hemorrhoids, patient has light brown stool most likely this is the reason for rectal bleed. since he had colonoscopy few months ago. and HGB stable and not tolerating prep , we will treat his hemorrhoids and do colonoscopy when feeling able to take the prep. PLAN: - diet as tolerated - Monitor hh - Transfuse as needed - Notify GI for active bleed - Supportive care - preoperation Eliot Bolanos MD Sep 13, 2016 09:34
[2016-09-13] MEDS: LORazepam 0.5 MG TAB PO SCH ×2 (11:40→20:49)
[2016-09-13] MEDS: PROMETHAZINE/CODEINE 6.25 MG/10 MG/5 ML CUP PO PRN (11:40)
[2016-09-13 13:02] LABS: INTERNATIONAL NORMALIZED RATIO 1.2 RATIO; PROTHROMBIN TIME - PATIENT 13.9 SEC (9.8-11.6)
[2016-09-13 14:49] LABS: APTT (PATIENT) 23.8 SEC (24.3-30.1)
[2016-09-13] MEDS: HEPARIN-D5W INJ 250 ML IV SCH (16:53)
--- NOTE | 2016-09-13 18:39 | HHI.PR ---
Subjective Remarks Improved .less leg edema. Off O2 sats 98.. No chest pain. Wants to go home. GI Eval pending Objective Vital Signs Date Time Temp Pulse Resp B/P Pulse Ox O2 Delivery O2 Flow Rate FiO2 09/13/16 15:45 97 High Flow Nasal Cannula 3.00 09/13/16 12:00 95.8 108 20 146/84 94 09/13/16 09:41 87 16 119/80 95 09/13/16 09:36 99 16 135/80 96 09/13/16 09:31 97.5 100 16 114/91 96 09/13/16 09:12 96.0 97 20 130/84 95 09/13/16 08:00 95.5 95 18 136/87 93 09/13/16 07:49 95 Nasal Cannula 3.00 09/13/16 04:00 96.0 97 20 130/84 95 09/13/16 03:52 94 Nasal Cannula 09/13/16 01:46 96.1 94 19 142/84 94 09/12/16 21:16 96.3 98 20 136/86 96 09/12/16 20:00 112 I/O 09/12/16 09/12/16 09/12/16 09/13/16 09/13/16 09/13/16 07:00 15:00 23:00 07:00 15:00 23:00 Intake Total 1200 ml 100 ml Output Total 1000 ml 1650 ml 900 ml 1100 ml Balance -1000 ml -450 ml -900 ml -1100 ml 100 ml Intake Oral 1200 ml IV Total 100 ml Output Urine Total 1000 ml 1650 ml 900 ml 1100 ml # Bowel Movements 0 3 0 0 Result Diagram: 09/13/16 0545 [id number]/12/162126 Objective Remarks GENERAL: Mid aged W/M is alert.No distress. HEENT: Exam unremarkable. Eyes without icterus. Throat clear NECK: Without adenopathy or thyroid enlargement. Central trachea. CHEST: Decreased breath sounds and Occ wheeze.No crackles. CARDIAC: PMI distant. S1, S2 audible. No murmur or rub. ABDOMEN: No mass. Bowel sounds audible. EXTREMITIES: No clubbing, cyanosis but has 1 + edema. Assessment and Plan Assessment and Plan IMPRESSION 1. Asthma exacerbation. 2. Hypertension. 3. Status post DVT/PE. 4. Status post septic arthritis, right hip. 5. Anxiety/depression. Plan : 1. O2 at 2L. and wean to RA 2. Nebs qid , duoneb. 3. D/C Antibiotics 4. prednisone 20 mg bid and taper in 3 weeks 5. IS and Acapella at bedside 6. Cont Symbicort 160/4.5 mcg . 2 puffs bid 7. Xanax .25 mg q4h PRN 8. Cont theodur 200 mg bid. 9. Lasix 40 mg po daily. 10. Home per Dr Sanches. Ashok Valdes MD Sep 13, 2016 18:39
[2016-09-13] MEDS: BUDESONIDE-FORMOTEROL 160/4.5 MCG INHALER INH SCH ×2 (20:49→21:00)
[2016-09-13] MEDS: MONTELUKAST SODIUM 10 MG TAB PO SCH (20:50)
[2016-09-13] MEDS: ATORVASTATIN 20 MG TAB PO SCH (20:50)
[2016-09-13] MEDS: ACETAMINOPHEN/HYDROcodone 325 MG/7.5 MG TAB PO PRN (20:50)
[2016-09-13] MEDS: ALPRAZolam 0.5 MG TAB PO PRN (20:50)
--- NOTE | 2016-09-13 20:58 | HHI.IDPN ---
Subjective Subjective Remarks no drainage from incision but still has tenderness in the area co SOB no fever cont to wheez Antibiotics cefuroxime started 09/06 Micafungin Fluconazol Allergies: Coded Allergies: Tetracycline (Verified Allergy, Severe, throat swells, 08/29/16) Demerol (Verified Allergy, Intermediate, hallucinations, 08/29/16) Objective . Vital Signs Date Time Temp Pulse Resp B/P Pulse Ox O2 Delivery O2 Flow Rate FiO2 09/13/16 16:00 96.4 112 20 124/81 95 09/13/16 15:45 97 High Flow Nasal Cannula 3.00 09/13/16 12:00 95.8 108 20 146/84 94 09/13/16 09:41 87 16 119/80 95 09/13/16 09:36 99 16 135/80 96 09/13/16 09:31 97.5 100 16 114/91 96 09/13/16 09:12 96.0 97 20 130/84 95 09/13/16 08:00 95.5 95 18 136/87 93 09/13/16 07:49 95 Nasal Cannula 3.00 09/13/16 04:00 96.0 97 20 130/84 95 09/13/16 03:52 94 Nasal Cannula 09/13/16 01:46 96.1 94 19 142/84 94 09/12/16 21:16 96.3 98 20 136/86 96 09/12/16 09/12/16 09/13/16 15:00 23:00 07:00 Intake Total 1200 ml Output Total 1650 ml 900 ml 1100 ml Balance -450 ml -900 ml -1100 ml Intake Oral 1200 ml Output Urine Total 1650 ml 900 ml 1100 ml # Bowel Movements 3 0 0 . Laboratory Tests Test 09/12/16 09/13/16 06:10 05:45 White Blood Count 12.0 TH/MM3 14.6 TH/MM3 Red Blood Count 4.46 MIL/MM3 4.51 MIL/MM3 Hemoglobin 10.5 GM/DL 10.6 GM/DL Hematocrit 33.2 % 33.7 % Mean Corpuscular Volume 74.4 FL 74.8 FL Mean Corpuscular Hemoglobin 23.5 PG 23.6 PG Mean Corpuscular Hemoglobin 31.5 % 31.5 % Concent Red Cell Distribution Width 24.2 % 24.0 % Platelet Count 163 TH/MM3 163 TH/MM3 Mean Platelet Volume 6.8 FL 7.2 FL Neutrophils (%) (Auto) 89.1 % Lymphocytes (%) (Auto) 4.8 % Monocytes (%) (Auto) 5.6 % Eosinophils (%) (Auto) 0.1 % Basophils (%) (Auto) 0.4 % Neutrophils # (Auto) 10.7 TH/MM3 Lymphocytes # (Auto) 0.6 TH/MM3 Monocytes # (Auto) 0.7 TH/MM3 Eosinophils # (Auto) 0.0 TH/MM3 Basophils # (Auto) 0.0 TH/MM3 CBC Comment AUTO DIFF Differential Total Cells 100 Counted Neutrophils % (Manual) 87 % Lymphocytes % 5 % Monocytes % 5 % Neutrophils # (Manual) 10.8 TH/MM3 Metamyelocytes 2 % Myelocytes 1 % Differential Comment FINAL DIFF MANUAL Platelet Estimate NORMAL Platelet Morphology Comment NORMAL Laboratory Tests Test 09/12/16 09/12/16 06:10 21:27 Sodium Level 137 MEQ/L 136 MEQ/L Potassium Level 4.1 MEQ/L 3.4 MEQ/L Chloride Level 99 MEQ/L 96 MEQ/L Carbon Dioxide Level 30.7 MEQ/L 26.1 MEQ/L Anion Gap 7 MEQ/L 14 MEQ/L Blood Urea Nitrogen 21 MG/DL 18 MG/DL Creatinine 0.88 MG/DL 0.95 MG/DL Estimat Glomerular Filtration 91 ML/MIN 83 ML/MIN Rate Random Glucose 167 MG/DL 230 MG/DL Calcium Level 8.5 MG/DL 8.3 MG/DL Total Bilirubin 0.6 MG/DL 0.5 MG/DL Aspartate Amino Transf 22 U/L 38 U/L (AST/SGOT) Alanine Aminotransferase 119 U/L 122 U/L (ALT/SGPT) Alkaline Phosphatase 104 U/L 121 U/L Total Protein 5.6 GM/DL 5.8 GM/DL Albumin 3.1 GM/DL 3.2 GM/DL Imaging Last Impressions Chest X-Ray 09/06/16 0600 Signed Impressions: Service Date/Time: Tuesday, September 06, 2016 05:15 - CONCLUSION: No acute disease. Davion Carranza MD Hip X-Ray 09/03/16 0000 Signed Impressions: Service Date/Time: Saturday, September 03, 2016 11:41 - CONCLUSION: 1. No acute fracture or joint dislocation. 2. Right hip prosthesis appears to be grossly intact. Tyler Mast MD CT Angiography 08/29/16 1609 Signed Impressions: Service Date/Time: August 16:50 - CONCLUSION: No evidence of pulmonary embolism. Minimal bibasilar atelectasis. Cardiomegaly and coronary artery calcifications. Samuel King MD Physical Exam CONSTITUTIONAL/GENERAL: This is an obese patient, in no apparent distress. SKIN: No jaundice, rashes, or lesions. Skin temperature appropriate. Not diaphoretic. EYES: Pupils equal and round and reactive. Extraocular motions intact. No scleral icterus. No injection or drainage. Fundi not examined. ENT: Oral mucosae without visible erythema, exudates, masses, or lesions. CARDIOVASCULAR: Regular rate and rhythm without murmurs, gallops, or rubs. No JVD. Peripheral pulses symmetric. RESPIRATORY/CHEST: Symmetric, unlabored respirations. + wheezing to auscultation. Breath sounds decreased GASTROINTESTINAL: Abdomen soft, globular non-tender, nondistended. No hepato- splenomegaly, or palpable masses. MUSCULOSKELETAL: Extremities without clubbing, cyanosis, or edema. Incision over R hip healed healed, no drainage mild area of erythema, + tender to palpaton Decreased ROM 2/2 pain NEUROLOGICAL: Awake and alert. Motor and sensory grossly within normal limits. Follows commands. Cognitively sharp. Moves all extremities. 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 medx contributing - cont fluconazol - cont micafungin - fu clinically - monitor LFTs Marizol Morris MD Sep 13, 2016 20:58
[2016-09-13] MEDS ORDERED: methylPREDNISolone SOD SUCC 40 MG/1 ML VIAL IV PUSH SCH (22:00)
[2016-09-13 23:29] LABS: APTT (PATIENT) 60.6 SEC (24.3-30.1)
[2016-09-14] VITALS (10 sets, daily range): BP systolic 92–128; BP diastolic 80–93; PULSE 90–120; RESP 17–20; TEMP 95.9–97.7; O2SAT 96–98
[2016-09-14] MEDS: ALPRAZolam 0.5 MG TAB PO PRN (00:24)
[2016-09-14] MEDS: RESP: ALBUTEROL 2.5 MG/3 ML NEB (PRN) NEB ×5 (01:49→21:30)
[2016-09-14] MEDS: INSULIN ASPART SUPPLEMENTAL SCALE SQ SCH ×4 (06:11→21:36)
[2016-09-14] MEDS: ACETAMINOPHEN/HYDROcodone 325 MG/7.5 MG TAB PO PRN ×3 (06:11→20:46)
--- NOTE | 2016-09-14 06:53 | HHI.PR ---
Subjective History of Present Illness Patient feeling weak and tired still wheezing on oral Prednisone.... have extremity edema better on Lasix 40 mg PO daily.. ... D/W RN at bed side..on heparin gtt Review of Systems Constitutional Constitutional: Fatigue, Weakness Pulmonary Respiratory: Coughing, Shortness of Breath, Wheezing Cardiology CV Remarks extremity edema. Allergic/Immunologic Allergic/Immunologic: Asthma Vitals/Results Intake & Output 09/13/16 09/13/16 09/14/16 15:00 23:00 07:00 Intake Total 1060 ml 650 ml 1000 ml Output Total 1800 ml Balance 1060 ml 650 ml -800 ml Intake Oral 960 ml 650 ml 1000 ml IV Total 100 ml Output Urine Total 1800 ml # Voids 5 1 # Bowel Movements 1 0 0 Vital Signs Vital Signs Date Time Temp Pulse Resp B/P Pulse Ox O2 Delivery O2 Flow Rate FiO2 09/14/16 05:15 97.7 115 18 110/80 98 09/14/16 01:49 96 09/14/16 00:30 97.2 120 19 126/86 97 09/13/16 21:00 128 09/13/16 20:30 98.8 119 17 110/79 95 09/13/16 16:00 96.4 112 20 124/81 95 09/13/16 15:45 97 High Flow Nasal Cannula 3.00 09/13/16 12:00 95.8 108 20 146/84 94 09/13/16 09:41 87 16 119/80 95 09/13/16 09:36 99 16 135/80 96 09/13/16 09:31 97.5 100 16 114/91 96 09/13/16 09:12 96.0 97 20 130/84 95 09/13/16 08:00 95.5 95 18 136/87 93 09/13/16 07:49 95 Nasal Cannula 3.00 CBC/BMP: 09/13/16 0545 09/12/16 1247 Lab Results Laboratory Tests Test 09/13/16 09/13/16 12:30 22:59 Prothrombin Time 13.9 SEC Prothromb Time International 1.2 RATIO Ratio Activated Partial 23.8 SEC 60.6 SEC Thromboplast Time Physical Exam General General Appearance: Well Developed, Well Nourished, No Acute Distress, Comfortable, Anxious Eyes Eye Exam: Pupils Equal, Sclera White, Extraocular Movement Intact Ears & Nose Ears & Nose Exam: Nasal Mucosa [place] Throat Throat Exam: Oral Mucosa [place] & Moist Neck Neck Exam: Neck Supple, Trachea Midline Pulmonary Resp Exam: Breath Sounds Equal, No Distress, Rhonchi Resp Remarks bilateral wheezing. Cardiology CV Exam: Regular, Normal Sinus Rhythm Gastrointestinal/Abdomen GI Exam: Soft, Non-Tender, Bowel Sounds Present Musculoskeletal MS Exam: Normal Tone Integumentary Skin Exam: Warm, Dry Skin Remarks right hip wound. Extremeties Extremities Exam: No Edema, Pedal Pulses Palpable, Moderate Edema, Pitting Edema Extremeties Remarks tenderness right hip. Neurologic Neuro Exam: Alert, Awake, Oriented, Speech Clear, Moving All Extremities Psychiatric Psych Exam: Appropriate Responses PUD Prophylasis PUD Prophylaxis: Protonix Assessment/Plan Assessment/Plan Assessment and Plan 1. Acute asthma/ COPD exacerbation with respiratory failure/insufficiency on admission...on bronchodilator Prednisone. and Antibiotic oral. 2. S/P Coumadin toxicity. on Heparin gtt. 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 4. Tachycardia. 5. Hypertension. 6. History of depression and anxiety. 7. History of DVT and PE. Patient have episode of bleeding from rectum and nose with xarelto d/w hematology Dr Reuben Cali discontinued Xarelto. on heparin gtt...will be on coumadin. 8. Arthritis. 9. History of hyperlipidemia. 10. Gastroesophageal reflux disease (GERD). 11. 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 Continue oxygen , keep saturation above 92%. PO steroid Aerosol treatment qid & q2 hrs prn continue with Symbicort twice daily Continue Singulair On Theophylline Antitussives when necessary Continue with Xanax dose 0.5 q 8 hr PO Ceftin BID. IV micafungin / and Diflucan..ID Input noted. Analgesics Wound care hold coumadin , f/u INR Continue to hold Coumadin on heparin gtt. cont Cardizem Proton pump inhibitor for GI prophylaxis. d/w PT Will follow Check CBC with diff CMP in AM. Discussed Condition with: Patient Myron Woodward MD Sep 14, 2016 06:53 Myron Woodward MD Sep 14, 2016 06:53
[2016-09-14] MEDS ORDERED: POTASSIUM CL 40 MEQ/30 ML LIQ UDC PO ONE (07:00)
[2016-09-14 07:52] LABS: AUTOMATED NEUTROPHIL # 10.1 TH/MM3 (1.8-7.7); BASOPHIL % 0.3 % (0.0-2.0); EOSINOPHIL % 0.2 % (0.0-4.0); LYMPH % 5.9 % (9.0-44.0); LYMPHOCYTE # 0.7 TH/MM3 (1.0-4.8); MEAN CELL VOLUME 74.2 FL (80.0-100.0); MEAN CORPUSCULAR HEMOGLOBIN 23.6 PG (27.0-34.0); MEAN CORPUSCULAR HGB CONC 31.9 % (32.0-36.0); MONO % 7.1 % (0.0-8.0); NEUT % 86.5 % (16.0-70.0); PLATELET COUNT 155 TH/MM3 (150-450); RED BLOOD COUNT 4.58 MIL/MM3 (4.50-5.90); RED CELL DISTRIBUTION WIDTH 24.2 % (11.6-17.2); WHITE BLOOD COUNT 11.7 TH/MM3 (4.0-11.0)
[2016-09-14] MEDS: SUCRALFATE 1 GM TAB PO SCH ×3 (07:52→16:56)
[2016-09-14 08:00] LABS: HEMO FLAGS AUTO DIFF
[2016-09-14 08:48] LABS: ANION GAP 11 MEQ/L (5-15); BLOOD UREA NITROGEN 11 MG/DL (7-18); CHLORIDE 98 MEQ/L (98-107); GLOMERULAR FILTRATION RATE 103 ML/MIN (>89); SODIUM (NA) 136 MEQ/L (136-145)
[2016-09-14] MEDS: LORazepam 0.5 MG TAB PO SCH ×2 (08:55→20:47)
[2016-09-14] MEDS: THEOPHYLLINE 200 MG EXTENDED RELEASE CAP PO SCH (08:55)
[2016-09-14 08:56] LABS: AST (GOT) 17 U/L (15-37)
[2016-09-14] MEDS: FUROSEMIDE 40 MG TAB PO SCH (08:56)
[2016-09-14] MEDS: PANTOPRAZOLE SOD 40 MG DELAYED RELEASE TAB PO SCH (08:56)
[2016-09-14] MEDS: CEFUROXIME AXETIL 500 MG TAB PO SCH ×2 (08:56→20:46)
[2016-09-14] MEDS: FLUCONAZOLE 200 MG TAB PO SCH (08:56)
[2016-09-14] MEDS: predniSONE 20 MG TAB PO SCH ×2 (08:56→20:47)
[2016-09-14] MEDS: DILTIAZEM-CD 180 MG CAP ER PO SCH (08:57)
[2016-09-14] MEDS: BUDESONIDE-FORMOTEROL 160/4.5 MCG INHALER INH SCH ×2 (08:58→20:47)
[2016-09-14] MEDS: SODIUM CHLORIDE 0.9% FLUSH 5 ML FLUSH FLUSH SCH ×2 (09:00→20:47)
[2016-09-14] MEDS: POTASSIUM CHLORIDE 10 MEQ CONTROLLED RELEASE TAB PO SCH ×2 (09:00→20:47)
[2016-09-14 09:08] LABS: ALT (GPT) 87 U/L (12-78)
[2016-09-14 09:09] LABS: ALKALINE PHOSPHATASE 118 U/L (45-117); TOTAL BILIRUBIN ADULT 0.5 MG/DL (0.2-1.0)
[2016-09-14 10:31] LABS: APTT (PATIENT) 122.5 SEC (24.3-30.1)
[2016-09-14 11:07] LABS: BANDS 10 % (0-6); POLYS (SEG NEUTROPHILS) 72 % (16-70)
[2016-09-14 11:08] LABS: EOSINOPHILS 1 % (0-4); METAMYELOCYTES 1 % (0-1); MYELOCYTES 2 % (0-0); NEUTROPHIL # MANUAL DIFF 9.9 TH/MM3 (1.8-7.7); OVALOCYTES 1+ (NORMAL); PLATELET ESTIMATE SMEAR NORMAL (NORMAL); PLATELET MORPHOLOGY NORMAL (NORMAL); SCAN/DIFF FINAL DIFF MANUAL; TEARDROP RBCS 1+ (NORMAL); WBC DIFF SAMPLE 100
--- NOTE | 2016-09-14 13:40 | HHI.GIFU ---
Subjective Remarks Resting in bed. No further bleeding. Has had 2 bowel movements- no blood. Tolerating diet. (Debby Mendez) Objective Vitals I&O Vital Signs Date Time Temp Pulse Resp B/P Pulse Ox O2 Delivery O2 Flow Rate FiO2 09/14/16 12:00 96.5 90 20 126/86 97 09/14/16 09:22 95 09/14/16 07:51 98 Nasal Cannula 4.00 09/14/16 07:42 95.9 98 17 128/89 98 09/14/16 05:15 97.7 115 18 110/80 98 09/14/16 01:49 96 09/14/16 00:30 97.2 120 19 126/86 97 09/13/16 21:00 128 09/13/16 20:30 98.8 119 17 110/79 95 09/13/16 16:00 96.4 112 20 124/81 95 09/13/16 15:45 97 High Flow Nasal Cannula 3.00 I/O 09/13/16 09/13/16 09/13/16 09/14/16 09/14/16 09/14/16 07:00 15:00 23:00 07:00 15:00 23:00 Intake Total 1060 ml 650 ml 1000 ml Output Total 1100 ml 1800 ml Balance -1100 ml 1060 ml 650 ml -800 ml Intake Oral 960 ml 650 ml 1000 ml IV Total 100 ml Output Urine Total 1100 ml 1800 ml # Voids 5 1 # Bowel Movements 0 1 0 0 Laboratory Laboratory Tests Test 09/13/16 09/14/16 09/14/16 22:59 07:21 09:27 Activated Partial 60.6 122.5 Thromboplast Time White Blood Count 11.7 Red Blood Count 4.58 Hemoglobin 10.8 Hematocrit 34.0 Mean Corpuscular Volume 74.2 Mean Corpuscular Hemoglobin 23.6 Mean Corpuscular Hemoglobin 31.9 Concent Red Cell Distribution Width 24.2 Platelet Count 155 Mean Platelet Volume 8.6 Neutrophils (%) (Auto) 86.5 Lymphocytes (%) (Auto) 5.9 Monocytes (%) (Auto) 7.1 Eosinophils (%) (Auto) 0.2 Basophils (%) (Auto) 0.3 Neutrophils # (Auto) 10.1 Lymphocytes # (Auto) 0.7 Monocytes # (Auto) 0.8 Eosinophils # (Auto) 0.0 Basophils # (Auto) 0.0 CBC Comment AUTO DIFF Differential Total Cells 100 Counted Neutrophils % (Manual) 72 Band Neutrophils % 10 Lymphocytes % 7 Monocytes % 7 Eosinophils % 1 Neutrophils # (Manual) 9.9 Metamyelocytes 1 Myelocytes 2 Differential Comment FINAL DIFF MANUAL Platelet Estimate NORMAL Platelet Morphology Comment NORMAL Tear Drop Cells 1+ Ovalocytes 1+ Sodium Level 136 Potassium Level 4.0 Chloride Level 98 Carbon Dioxide Level 27.0 Anion Gap 11 Blood Urea Nitrogen 11 Creatinine 0.79 Estimat Glomerular Filtration 103 Rate Random Glucose 189 Calcium Level 8.2 Total Bilirubin 0.5 Aspartate Amino Transf 17 (AST/SGOT) Alanine Aminotransferase 87 (ALT/SGPT) Alkaline Phosphatase 118 Total Protein 5.8 Albumin 3.1 Imaging Last Impressions Chest X-Ray 09/06/16 0600 Signed Impressions: Service Date/Time: Tuesday, September 06, 2016 05:15 - CONCLUSION: No acute disease. Davion Carranza MD Hip X-Ray 09/03/16 0000 Signed Impressions: Service Date/Time: Saturday, September 03, 2016 11:41 - CONCLUSION: 1. No acute fracture or joint dislocation. 2. Right hip prosthesis appears to be grossly intact. Tyler Mast MD CT Angiography 08/29/16 1609 Signed Impressions: Service Date/Time: August 16:50 - CONCLUSION: No evidence of pulmonary embolism. Minimal bibasilar atelectasis. Cardiomegaly and coronary artery calcifications. Samuel King MD Physical Exam HEENT: Normocephalic; atraumatic; no jaundice. CHEST: CTA CARDIAC: RRR ABDOMEN: Soft, nondistended, nontender; no hepatosplenomegaly; bowel sounds are present in all four quadrants. EXTREMITIES: No clubbing, cyanosis, or edema. SKIN: Normal; no rash; no jaundice. [employer] AD[employer]: No focal deficits; alert and oriented times three. (Debby Mendez) Assessment and Plan Plan ASSESSMENT: - BRBPR. EGD/colonoscopy on (07/10/16)----> irregular Z-line, bx negative for metaplasia or dysplasia, in the colon some stools through out the colon may have obstructed the visualization, two polyps in the sigmoid and transverse colon fulgurated, fissures, no active bleeding found. Pathology revealed tubulovillous adenoma in the ascending and tubular adenoma in the transverse. Rpt. Colonoscopy (09/13/16)----> poor prep, rectal fissure and hemorrhoids. Most likely this is the etiology for his rectal bleeding. HH stable. 10.8/34.8. - Asthma/COPD exacerbation- Pulmonology on the case, steroids, breathing tx - Right hip abscess, S/P I&D and arthroplasty- ID on the case - Hx RLE DVT/PE was on Coumadin at home. Heparin gtt per hematology. PLAN: - Diet as tolerated - Monitor HH - Transfuse as needed - Preparation H - GI will sign, please reconsult as needed - Pt seen and examined by Dr. Bridges and myself and this note is written on his behalf (Debby Mendez) Physician Comments patient was seen and examined, agree with above note and plan, we will F/U as needed. (Eliot Bridges MD) Debby Mendez Sep 14, 2016 13:40 Eliot Bridges MD Sep 14, 2016 13:58
[2016-09-14 14:29] LABS: INTERNATIONAL NORMALIZED RATIO 1.1 RATIO; PROTHROMBIN TIME - PATIENT 12.7 SEC (9.8-11.6)
[2016-09-14 16:09] LABS: APTT (PATIENT) 49.1 SEC (24.3-30.1)
[2016-09-14] MEDS: HYDROmorphone HCL PF 1 MG/ML VIAL IV PRN (16:57)
[2016-09-14] MEDS: ATORVASTATIN 20 MG TAB PO SCH (20:46)
[2016-09-14] MEDS: MONTELUKAST SODIUM 10 MG TAB PO SCH (20:46)
[2016-09-14] MEDS: HEPARIN-D5W INJ 250 ML IV SCH (20:48)
[2016-09-14] MEDS: PROMETHAZINE INJ 25 MG/ML VIAL IM PRN (22:00)
[2016-09-14 22:41] LABS: APTT (PATIENT) 54.8 SEC (24.3-30.1)
[2016-09-15] VITALS (11 sets, daily range): BP systolic 121–150; BP diastolic 82–102; PULSE 87–127; RESP 16–26; TEMP 95.7–97; O2SAT 96–100
[2016-09-15] MEDS: INSULIN ASPART SUPPLEMENTAL SCALE SQ SCH ×4 (06:13→20:39)
[2016-09-15 06:17] LABS: APTT (PATIENT) 68.2 SEC (24.3-30.1)
[2016-09-15 06:20] LABS: AUTOMATED NEUTROPHIL # 10.4 TH/MM3 (1.8-7.7); BASOPHIL % 0.2 % (0.0-2.0); EOSINOPHIL # 0.1 TH/MM3 (0-0.4); EOSINOPHIL % 0.4 % (0.0-4.0); HEMATOCRIT 33.2 % (39.0-51.0); LYMPH % 9.7 % (9.0-44.0); LYMPHOCYTE # 1.2 TH/MM3 (1.0-4.8); MEAN CELL VOLUME 75.3 FL (80.0-100.0); MEAN CORPUSCULAR HEMOGLOBIN 23.8 PG (27.0-34.0); MEAN CORPUSCULAR HGB CONC 31.7 % (32.0-36.0); MONO % 6.2 % (0.0-8.0); NEUT % 83.5 % (16.0-70.0); PLATELET COUNT 167 TH/MM3 (150-450); RED BLOOD COUNT 4.41 MIL/MM3 (4.50-5.90); RED CELL DISTRIBUTION WIDTH 24.3 % (11.6-17.2); WHITE BLOOD COUNT 12.5 TH/MM3 (4.0-11.0)
[2016-09-15 06:25] LABS: ALKALINE PHOSPHATASE 118 U/L (45-117); ALT (GPT) 84 U/L (12-78); ANION GAP 8 MEQ/L (5-15); AST (GOT) 26 U/L (15-37); BICARBONATE 30.4 MEQ/L (21.0-32.0); BLOOD UREA NITROGEN 13 MG/DL (7-18); CHLORIDE 98 MEQ/L (98-107); GLOMERULAR FILTRATION RATE 96 ML/MIN (>89); POTASSIUM 4.2 MEQ/L (3.5-5.1); SODIUM (NA) 136 MEQ/L (136-145); TOTAL BILIRUBIN ADULT 0.6 MG/DL (0.2-1.0)
[2016-09-15 06:39] LABS: HEMO FLAGS AUTO DIFF
[2016-09-15] MEDS: RESP: ALBUTEROL 2.5 MG/3 ML NEB (PRN) NEB ×4 (07:28→20:30)
[2016-09-15] MEDS: CEFUROXIME AXETIL 500 MG TAB PO SCH ×2 (08:08→20:26)
[2016-09-15] MEDS: SUCRALFATE 1 GM TAB PO SCH ×3 (08:09→17:23)
[2016-09-15] MEDS: FLUCONAZOLE 200 MG TAB PO SCH (08:09)
[2016-09-15] MEDS: ACETAMINOPHEN/HYDROcodone 325 MG/7.5 MG TAB PO PRN ×2 (08:09→17:24)
[2016-09-15] MEDS: FUROSEMIDE 40 MG TAB PO SCH (08:09)
[2016-09-15] MEDS: predniSONE 20 MG TAB PO SCH ×2 (08:09→20:26)
[2016-09-15] MEDS: DILTIAZEM-CD 180 MG CAP ER PO SCH (08:09)
[2016-09-15] MEDS: LORazepam 0.5 MG TAB PO SCH ×2 (08:09→20:26)
[2016-09-15] MEDS: THEOPHYLLINE 200 MG EXTENDED RELEASE CAP PO SCH (08:10)
[2016-09-15] MEDS: PANTOPRAZOLE SOD 40 MG DELAYED RELEASE TAB PO SCH (08:10)
[2016-09-15] MEDS: POTASSIUM CHLORIDE 10 MEQ CONTROLLED RELEASE TAB PO SCH ×2 (08:10→20:26)
[2016-09-15] MEDS: SODIUM CHLORIDE 0.9% FLUSH 5 ML FLUSH FLUSH SCH ×2 (08:11→20:27)
[2016-09-15] MEDS: BUDESONIDE-FORMOTEROL 160/4.5 MCG INHALER INH SCH ×2 (08:11→20:27)
[2016-09-15 09:11] LABS: MYELOCYTES 2 % (0-0); NEUTROPHIL # MANUAL DIFF 10.3 TH/MM3 (1.8-7.7); POLYS (SEG NEUTROPHILS) 80 % (16-70); WBC DIFF SAMPLE 100
[2016-09-15 09:12] LABS: OVALOCYTES 1+ (NORMAL); PLATELET ESTIMATE SMEAR NORMAL (NORMAL); PLATELET MORPHOLOGY NORMAL (NORMAL); SCAN/DIFF FINAL DIFF MANUAL
--- NOTE | 2016-09-15 09:31 | HHI.PR ---
Subjective History of Present Illness Patient feeling weak and tired still wheezing on oral Prednisone bronchodialtors .... have extremity edema better on Lasix 40 mg PO daily. ..on heparin gtt Review of Systems Constitutional Constitutional: Fatigue, Weakness Pulmonary Respiratory: Coughing, Shortness of Breath, Wheezing Cardiology CV Remarks extremity edema. Musculoskeletal MS: Swelling MS Remarks extremity edema better. Allergic/Immunologic Allergic/Immunologic: Asthma Vitals/Results Intake & Output 09/14/16 09/14/16 09/15/16 15:00 23:00 07:00 Intake Total 480 ml 480 ml 480 ml Output Total 600 ml 800 ml 1200 ml Balance -120 ml -320 ml -720 ml Intake Oral 480 ml 480 ml 480 ml Output Urine Total 600 ml 700 ml 1200 ml Emesis 100 ml # Bowel Movements 1 0 0 Vital Signs Vital Signs Date Time Temp Pulse Resp B/P Pulse Ox O2 Delivery O2 Flow Rate FiO2 09/15/16 08:29 95.7 108 16 121/85 97 09/15/16 04:12 96.1 100 20 140/88 97 09/15/16 00:09 96.7 108 20 131/90 96 09/14/16 21:46 18 09/14/16 21:31 98 Nasal Cannula 2.00 09/14/16 20:00 97.3 115 19 118/93 96 09/14/16 17:01 97.3 107 20 92/ 96 09/14/16 12:00 96.5 90 20 126/86 97 CBC/BMP: 09/15/16 0545 09/15/16 0545 Lab Results Laboratory Tests Test 09/14/16 09/14/16 09/14/16 09/15/16 13:40 15:45 22:00 05:45 Prothrombin Time 12.7 SEC Prothromb Time International 1.1 RATIO Ratio Activated Partial 49.1 SEC 54.8 SEC 68.2 SEC Thromboplast Time White Blood Count 12.5 TH/MM3 Red Blood Count 4.41 MIL/MM3 Hemoglobin 10.5 GM/DL Hematocrit 33.2 % Mean Corpuscular Volume 75.3 FL Mean Corpuscular Hemoglobin 23.8 PG Mean Corpuscular Hemoglobin 31.7 % Concent Red Cell Distribution Width 24.3 % Platelet Count 167 TH/MM3 Mean Platelet Volume 7.6 FL Neutrophils (%) (Auto) 83.5 % Lymphocytes (%) (Auto) 9.7 % Monocytes (%) (Auto) 6.2 % Eosinophils (%) (Auto) 0.4 % Basophils (%) (Auto) 0.2 % Neutrophils # (Auto) 10.4 TH/MM3 Lymphocytes # (Auto) 1.2 TH/MM3 Monocytes # (Auto) 0.8 TH/MM3 Eosinophils # (Auto) 0.1 TH/MM3 Basophils # (Auto) 0.0 TH/MM3 CBC Comment AUTO DIFF Differential Total Cells 100 Counted Neutrophils % (Manual) 80 % Lymphocytes % 14 % Monocytes % 4 % Neutrophils # (Manual) 10.3 TH/MM3 Myelocytes 2 % Differential Comment FINAL DIFF MANUAL Platelet Estimate NORMAL Platelet Morphology Comment NORMAL Ovalocytes 1+ Sodium Level 136 MEQ/L Potassium Level 4.2 MEQ/L Chloride Level 98 MEQ/L Carbon Dioxide Level 30.4 MEQ/L Anion Gap 8 MEQ/L Blood Urea Nitrogen 13 MG/DL Creatinine 0.84 MG/DL Estimat Glomerular Filtration 96 ML/MIN Rate Random Glucose 174 MG/DL Calcium Level 8.8 MG/DL Total Bilirubin 0.6 MG/DL Aspartate Amino Transf 26 U/L (AST/SGOT) Alanine Aminotransferase 84 U/L (ALT/SGPT) Alkaline Phosphatase 118 U/L Total Protein 6.0 GM/DL Albumin 3.1 GM/DL Physical Exam General General Appearance: Well Developed, Well Nourished, No Acute Distress, Comfortable, Anxious Eyes Eye Exam: Pupils Equal, Sclera White, Extraocular Movement Intact Ears & Nose Ears & Nose Exam: Nasal Mucosa [place] Throat Throat Exam: Oral Mucosa [place] & Moist Neck Neck Exam: Neck Supple, Trachea Midline Pulmonary Resp Exam: Breath Sounds Equal, No Distress, Rhonchi Resp Remarks bilateral wheezing. Cardiology CV Exam: Regular, Normal Sinus Rhythm Gastrointestinal/Abdomen GI Exam: Soft, Non-Tender, Bowel Sounds Present Musculoskeletal MS Exam: Normal Tone Integumentary Skin Exam: Warm, Dry Skin Remarks right hip wound. Extremeties Extremities Exam: No Edema, Pedal Pulses Palpable, Moderate Edema, Pitting Edema Extremeties Remarks tenderness right hip. Neurologic Neuro Exam: Alert, Awake, Oriented, Speech Clear, Moving All Extremities Psychiatric Psych Exam: Appropriate Responses PUD Prophylasis PUD Prophylaxis: Protonix Assessment/Plan Assessment/Plan Assessment and Plan 1. Acute asthma/ COPD exacerbation with respiratory failure/insufficiency on admission...on bronchodilator Prednisone. and Antibiotic oral. 2. Coumadin toxicity...resolved.. on Heparin gtt. started on coumadin 2 mg PO Daily. 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 4. Tachycardia. 5. Hypertension. 6. History of depression and anxiety. 7. History of DVT and PE. Patient have episode of bleeding from rectum and nose with xarelto d/w hematology Dr Reuben Cali discontinued Xarelto. on heparin gtt...started on coumadin 2 mg PO Daily. 8. Arthritis. 9. History of hyperlipidemia. 10. Gastroesophageal reflux disease (GERD). 11. 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 Continue oxygen , keep saturation above 92%. PO steroid Aerosol treatment qid & q2 hrs prn continue with Symbicort twice daily Continue Singulair On Theophylline Antitussives when necessary Continue with Xanax dose 0.5 q 8 hr On PO Ceftin BID. On Diflucan..ID Input noted. Analgesics Wound care on heparin gtt. cont Cardizem Proton pump inhibitor for GI prophylaxis. S/P COLONOSCOPY..POOR PREP. d/w PT Will follow Check CBC with diff CMP in AM. Discussed Condition with: Patient Myron Woodward MD Sep 15, 2016 09:31
[2016-09-15] MEDS: HEPARIN-D5W INJ 250 ML IV SCH (13:17)
[2016-09-15] MEDS: PROMETHAZINE/CODEINE 6.25 MG/10 MG/5 ML CUP PO PRN ×2 (14:12→20:25)
[2016-09-15] MEDS: WARFARIN SOD 2 MG TAB PO SCH (17:23)
[2016-09-15] MEDS: MONTELUKAST SODIUM 10 MG TAB PO SCH (20:26)
[2016-09-15] MEDS: ATORVASTATIN 20 MG TAB PO SCH (20:26)
[2016-09-15] MEDS: PROMETHAZINE INJ 25 MG/ML VIAL IM PRN (20:32)
[2016-09-15 20:36] LABS: PROTHROMBIN TIME - PATIENT 10.9 SEC (9.8-11.6)
[2016-09-15] MEDS: RESP: LEVALBUTEROL HYDROCHLORIDE 1.25 MG/3 ML NEB (PRN) NEB ×2 (20:40→23:30)
[2016-09-16] VITALS (12 sets, daily range): BP systolic 110–142; BP diastolic 84–100; PULSE 103–126; RESP 18–27; TEMP 96.6–98.5; O2SAT 95–99
[2016-09-16] MEDS: RESP: LEVALBUTEROL HYDROCHLORIDE 1.25 MG/3 ML NEB (PRN) NEB ×5 (03:02→20:36)
[2016-09-16] MEDS: ACETAMINOPHEN/HYDROcodone 325 MG/7.5 MG TAB PO PRN ×3 (05:21→21:29)
[2016-09-16] MEDS: INSULIN ASPART SUPPLEMENTAL SCALE SQ SCH ×4 (06:53→21:28)
[2016-09-16 07:03] LABS: APTT (PATIENT) 55.3 SEC (24.3-30.1)
[2016-09-16 07:06] LABS: AUTOMATED NEUTROPHIL # 14.2 TH/MM3 (1.8-7.7); BASOPHIL % 0.2 % (0.0-2.0); EOSINOPHIL % 0.2 % (0.0-4.0); HEMATOCRIT 32.2 % (39.0-51.0); LYMPH % 7.4 % (9.0-44.0); LYMPHOCYTE # 1.2 TH/MM3 (1.0-4.8); MEAN CELL VOLUME 76.4 FL (80.0-100.0); MEAN CORPUSCULAR HEMOGLOBIN 24.2 PG (27.0-34.0); MEAN CORPUSCULAR HGB CONC 31.7 % (32.0-36.0); NEUT % 87.2 % (16.0-70.0); PLATELET COUNT 198 TH/MM3 (150-450); RED BLOOD COUNT 4.21 MIL/MM3 (4.50-5.90); RED CELL DISTRIBUTION WIDTH 24.4 % (11.6-17.2); WHITE BLOOD COUNT 16.3 TH/MM3 (4.0-11.0)
[2016-09-16 07:10] LABS: HEMO FLAGS AUTO DIFF
[2016-09-16] MEDS: HEPARIN-D5W INJ 250 ML IV SCH (07:17)
[2016-09-16 07:18] LABS: ALKALINE PHOSPHATASE 134 U/L (45-117); ALT (GPT) 75 U/L (12-78); ANION GAP 10 MEQ/L (5-15); AST (GOT) 33 U/L (15-37); BICARBONATE 27.3 MEQ/L (21.0-32.0); BLOOD UREA NITROGEN 17 MG/DL (7-18); CHLORIDE 98 MEQ/L (98-107); GLOMERULAR FILTRATION RATE 81 ML/MIN (>89); SODIUM (NA) 135 MEQ/L (136-145); TOTAL BILIRUBIN ADULT 0.6 MG/DL (0.2-1.0)
[2016-09-16 08:46] LABS: BANDS 3 % (0-6); CORRECTED NUCLEATED RBC 1 /100 WBC (0-0); MYELOCYTES 5 % (0-0); NEUTROPHIL # MANUAL DIFF 15.5 TH/MM3 (1.8-7.7); POLYS (SEG NEUTROPHILS) 87 % (16-70); WBC DIFF SAMPLE 100
[2016-09-16 08:48] LABS: OVALOCYTES 1+ (NORMAL); PLATELET ESTIMATE SMEAR NORMAL (NORMAL); PLATELET MORPHOLOGY NORMAL (NORMAL); SCAN/DIFF FINAL DIFF MANUAL
[2016-09-16] MEDS: SODIUM CHLORIDE 0.9% FLUSH 5 ML FLUSH FLUSH SCH ×2 (09:00→21:00)
[2016-09-16] MEDS: SUCRALFATE 1 GM TAB PO SCH ×3 (09:03→17:17)
[2016-09-16] MEDS: predniSONE 20 MG TAB PO SCH ×2 (09:03→21:29)
[2016-09-16] MEDS: DILTIAZEM-CD 180 MG CAP ER PO SCH (09:04)
[2016-09-16] MEDS: BUDESONIDE-FORMOTEROL 160/4.5 MCG INHALER INH SCH ×2 (09:04→21:30)
[2016-09-16] MEDS: POTASSIUM CHLORIDE 10 MEQ CONTROLLED RELEASE TAB PO SCH ×2 (09:04→21:30)
[2016-09-16] MEDS: LORazepam 0.5 MG TAB PO SCH ×2 (09:04→21:28)
[2016-09-16] MEDS: THEOPHYLLINE 200 MG EXTENDED RELEASE CAP PO SCH (09:04)
[2016-09-16] MEDS: FUROSEMIDE 40 MG TAB PO SCH (09:04)
[2016-09-16] MEDS: CEFUROXIME AXETIL 500 MG TAB PO SCH ×2 (09:04→21:29)
[2016-09-16] MEDS: PANTOPRAZOLE SOD 40 MG DELAYED RELEASE TAB PO SCH (09:04)
[2016-09-16] MEDS: HYDROmorphone HCL PF 1 MG/ML VIAL IV PRN (09:05)
[2016-09-16] MEDS: FLUCONAZOLE 200 MG TAB PO SCH (09:15)
[2016-09-16] MEDS: LACTATED RINGER'S 1000 ML IV SCH (09:35)
--- NOTE | 2016-09-16 11:06 | PD.ONC.PN ---
Subjective Subjective Remarks Afebrile overnight. Patient states he continues to have pain in his right hip. Overnight he was on bipap, but is back on supplemental O2 via NC. Denies any further nose bleed or BRBPR. Objective Data Date Time Temp Pulse Resp B/P Pulse Ox O2 Delivery O2 Flow Rate FiO2 09/16/16 09:42 20 09/16/16 08:00 97.2 123 22 126/90 98 09/16/16 07:32 98 Nasal Cannula 3.00 09/16/16 06:29 18 09/16/16 04:00 96.6 113 27 110/84 98 09/16/16 03:18 123 09/16/16 03:02 99 45 09/16/16 03:00 98 Bi-Pap 45 09/15/16 23:41 96.6 127 26 150/93 99 09/15/16 23:34 99 Bi-Pap 45 09/15/16 23:30 100 45 09/15/16 21:10 99 Bi-Pap 45 09/15/16 20:45 99 45 09/15/16 20:41 99 Bi-Pap 45 09/15/16 20:32 96 Nasal Cannula 3.00 09/15/16 20:27 97.0 120 20 131/92 97 09/15/16 16:31 97.0 108 18 131/82 97 09/15/16 14:49 87 09/15/16 12:21 96.0 110 22 133/102 97 09/16/16 09/16/16 09/16/16 07:00 15:00 23:00 Output Total 800 ml Balance -800 ml Result Diagram: 09/16/1630 09/16/16 0630 Laboratory Results Laboratory Tests Test 09/15/16 09/16/16 20:00 06:30 Prothrombin Time 10.9 SEC Prothromb Time International 1.0 RATIO Ratio White Blood Count 16.3 TH/MM3 Red Blood Count 4.21 MIL/MM3 Hemoglobin 10.2 GM/DL Hematocrit 32.2 % Mean Corpuscular Volume 76.4 FL Mean Corpuscular Hemoglobin 24.2 PG Mean Corpuscular Hemoglobin 31.7 % Concent Red Cell Distribution Width 24.4 % Platelet Count 198 TH/MM3 Mean Platelet Volume 7.5 FL Neutrophils (%) (Auto) 87.2 % Lymphocytes (%) (Auto) 7.4 % Monocytes (%) (Auto) 5.0 % Eosinophils (%) (Auto) 0.2 % Basophils (%) (Auto) 0.2 % Neutrophils # (Auto) 14.2 TH/MM3 Lymphocytes # (Auto) 1.2 TH/MM3 Monocytes # (Auto) 0.8 TH/MM3 Eosinophils # (Auto) 0.0 TH/MM3 Basophils # (Auto) 0.0 TH/MM3 CBC Comment AUTO DIFF Differential Total Cells 100 Counted Neutrophils % (Manual) 87 % Band Neutrophils % 3 % Lymphocytes % 2 % Monocytes % 3 % Neutrophils # (Manual) 15.5 TH/MM3 Myelocytes 5 % Nucleated Red Blood Cells 1 /100 WBC Differential Comment FINAL DIFF MANUAL Platelet Estimate NORMAL Platelet Morphology Comment NORMAL Ovalocytes 1+ Activated Partial 55.3 SEC Thromboplast Time Sodium Level 135 MEQ/L Potassium Level 4.0 MEQ/L Chloride Level 98 MEQ/L Carbon Dioxide Level 27.3 MEQ/L Anion Gap 10 MEQ/L Blood Urea Nitrogen 17 MG/DL Creatinine 0.97 MG/DL Estimat Glomerular Filtration 81 ML/MIN Rate Random Glucose 233 MG/DL Calcium Level 8.3 MG/DL Total Bilirubin 0.6 MG/DL Aspartate Amino Transf 33 U/L (AST/SGOT) Alanine Aminotransferase 75 U/L (ALT/SGPT) Alkaline Phosphatase 134 U/L Total Protein 6.0 GM/DL Albumin 3.1 GM/DL Administered Medications Medications (Trade) Dose Ordered Sig/Gabi Route PRN Reason Start Time Stop Time Status Last Admin Dose Admin Atorvastatin Calcium (Lipitor) 20 mg HS PO 08/29/16 21:00 09/15/16 20:26 Budesonide/ Formoterol Fumarate (Symbicort 160-4.5 Inh) 2 puff Q12HR INH 08/29/16 21:00 09/16/16 09:04 Diltiazem HCl (Cardizem Cd) 360 mg DAILY PO 08/30/16 09:00 09/16/16 09:04 Fluconazole (Diflucan) 400 mg DAILY PO 08/30/16 09:00 09/16/16 09:15 Acetaminophen/ Hydrocodone Bitart ([place] 7.5-325 Mg) 1 tab TID PRN PO PAIN 08/29/16 18:30 09/16/16 05:21 Montelukast Sodium (Singulair) 10 mg HS PO 08/29/16 21:00 09/15/16 20:26 Pantoprazole Sodium (Protonix) 40 mg DAILY PO 08/30/16 09:00 09/16/16 09:04 Promethazine HCl/ Codeine (Phenergan-Codeine Liq) 5 ml Q4H PRN PO COUGH AND/OR COLD SYMPTOMS 08/29/16 18:30 09/15/16 20:25 Sucralfate (Carafate) 1 gm TID PO 08/30/16 09:00 09/16/16 09:03 IV Flush (NS Flush) 2 ml UNSCH PRN FLUSH FLUSH AFTER USING IV ACCESS 08/29/16 18:30 09/03/16 21:04 IV Flush (NS Flush) 2 ml BID FLUSH 08/29/16 21:00 09/15/16 20:27 Ondansetron HCl (Zofran Inj) 4 mg Q6H PRN IVP NAUSEA OR VOMITING 08/29/16 18:30 09/12/16 15:47 Lorazepam (Ativan) 0.5 mg BID PO 08/30/16 09:00 09/16/16 09:04 Hydromorphone HCl (Dilaudid Pf Inj) 0.5 mg Q4H PRN IV BREAKTHROUGH PAIN 08/30/16 23:15 09/16/16 09:05 Clonidine (Catapres) 0.1 mg Q6H PRN PO SBP>160, DBP>90 09/02/16 23:45 09/09/16 05:21 IV Flush (NS Flush) See Protocol DAILY IVF 09/05/16 09:00 09/13/16 09:00 Heparin Sodium (Porcine) (Heparin Central Flush) See Protocol DAILY IVF 09/05/16 09:00 09/12/16 08:43 Cefuroxime Axetil (Ceftin) 500 mg Q12HR PO 09/06/16 09:00 09/16/16 09:04 Potassium Chloride (KCl) 10 meq Q12HR PO 09/06/16 21:00 09/16/16 09:04 Theophylline (Samuel-24) 400 mg DAILY PO 09/08/16 09:00 09/16/16 09:04 Promethazine HCl (Phenergan Inj) 12.5 mg Q8H PRN IM NAUESA 09/08/16 20:15 09/15/16 20:32 Prednisone 20 mg 20 mg BID PO 09/11/16 21:00 09/16/16 09:03 Heparin Sodium/ Dextrose (Heparin-D5W Inj) 250 ml @ 0 mls/hr TITRATE IV 09/13/16 06:45 09/16/16 07:17 Furosemide (Lasix) 40 mg DAILY PO 09/14/16 09:00 09/16/16 09:04 Warfarin Sodium (Coumadin) 2 mg DAILY@16 PO 09/15/16 16:00 09/15/16 17:23 Objective Remarks GENERAL: Middle aged male, lying in bed in nad. SKIN: Warm and dry. HEAD: Normocephalic. EYES: No injection or drainage. NECK: Supple, trachea midline. CARDIOVASCULAR: +S1/S2, tachy RESPIRATORY: scattered wheeze, all lung fair. GASTROINTESTINAL: Abdomen soft, non-tender, nondistended. EXTREMITIES: No cyanosis. right thigh with scar in place, no fluid collection palpated. NEUROLOGICAL: No obvious focal deficit. Awake, alert, and oriented x3. Assessment/Plan Problem List: (1) Acute hypercapnic respiratory failure Status: Acute (2) Thrombocytopenia Status: Resolved (3) Superficial thrombophlebitis Status: Acute (4) Pulmonary embolism Status: Acute (5) Acute asthma exacerbation Status: Acute (6) Warfarin-induced coagulopathy Status: Acute (7) Septic hip Status: Acute (8) Abscess of hip, right Status: Acute Assessment 51-year-old male with a past medical history of recurrent asthma attacks with recurrent hospital admissions, hypertension, hyperlipidemia, history of pulmonary embolism and DVT and also right hip wound infection who was admitted to the hospital with shortness of breath and exacerbation of asthma. Hematology has been consulted to evaluate this patient who has been on Coumadin for DVT and pulmonary embolism and has been difficult to manage due labile INR. He on he has persistent suboptimal therapeutic levels. 1. Hx of Pulmonary embolism and DVT-- in the setting of a hospital admission in december 2015 2. Labile and difficult to manage INR while on Coumadin 3. Infected right hip wound. 4. Exacerbation of asthma. 5. GIB--resolved. colonoscopy was abandoned due to poor prep. GI signed off-- GIB likely due to hemorrhoids. H/H stable. Plan 1. continue heparin bridge to coumadin 2. monitor CBC Attending Statement The exam, history, and the medical decision-making described in the above note were completed with the assistance of the mid-level provider. I reviewed and agree with the findings presented. I attest that I had a [id number] encounter with the patient on the same day, and personally performed and documented my assessment and findings in the medical record. Problem Qualifiers (1) Acute asthma exacerbation: Qualified Code: J45.51 - Severe persistent asthma with acute exacerbation Berenice Lo Sep 16, 2016 11:06 Reuben Cali MD Sep 16, 2016 20:46
--- NOTE | 2016-09-16 11:56 | HHI.PR ---
Subjective History of Present Illness Patient feeling weak and tired still wheezing on oral Prednisone bronchodialtors .... have extremity edema better on Lasix 20 mg PO daily. ..on heparin gtt. and coumadin. Review of Systems Constitutional Constitutional: Fatigue, Weakness Pulmonary Respiratory: Coughing, Shortness of Breath, Wheezing Cardiology CV Remarks extremity edema. Musculoskeletal MS: Swelling MS Remarks extremity edema better. Allergic/Immunologic Allergic/Immunologic: Asthma Vitals/Results Intake & Output 09/15/16 09/15/16 09/16/16 15:00 23:00 07:00 Intake Total 720 ml Output Total 1575 ml 700 ml 800 ml Balance -855 ml -700 ml -800 ml Intake Oral 720 ml Output Urine Total 1575 ml 700 ml 800 ml # Bowel Movements 1 0 Vital Signs Vital Signs Date Time Temp Pulse Resp B/P Pulse Ox O2 Delivery O2 Flow Rate FiO2 09/16/16 09:42 20 09/16/16 08:00 97.2 123 22 126/90 98 09/16/16 07:32 98 Nasal Cannula 3.00 09/16/16 06:29 18 09/16/16 04:00 96.6 113 27 110/84 98 09/16/16 03:18 123 09/16/16 03:02 99 45 09/16/16 03:00 98 Bi-Pap 45 09/15/16 23:41 96.6 127 26 150/93 99 09/15/16 23:34 99 Bi-Pap 45 09/15/16 23:30 100 45 09/15/16 21:10 99 Bi-Pap 45 09/15/16 20:45 99 45 09/15/16 20:41 99 Bi-Pap 45 09/15/16 20:32 96 Nasal Cannula 3.00 09/15/16 20:27 97.0 120 20 131/92 97 09/15/16 16:31 97.0 108 18 131/82 97 09/15/16 14:49 87 09/15/16 12:21 96.0 110 22 133/102 97 CBC/BMP: 09/16/16 0630 09/16/16 0630 Lab Results Laboratory Tests Test 09/15/16 09/16/16 20:00 06:30 Prothrombin Time 10.9 SEC Prothromb Time International 1.0 RATIO Ratio White Blood Count 16.3 TH/MM3 Red Blood Count 4.21 MIL/MM3 Hemoglobin 10.2 GM/DL Hematocrit 32.2 % Mean Corpuscular Volume 76.4 FL Mean Corpuscular Hemoglobin 24.2 PG Mean Corpuscular Hemoglobin 31.7 % Concent Red Cell Distribution Width 24.4 % Platelet Count 198 TH/MM3 Mean Platelet Volume 7.5 FL Neutrophils (%) (Auto) 87.2 % Lymphocytes (%) (Auto) 7.4 % Monocytes (%) (Auto) 5.0 % Eosinophils (%) (Auto) 0.2 % Basophils (%) (Auto) 0.2 % Neutrophils # (Auto) 14.2 TH/MM3 Lymphocytes # (Auto) 1.2 TH/MM3 Monocytes # (Auto) 0.8 TH/MM3 Eosinophils # (Auto) 0.0 TH/MM3 Basophils # (Auto) 0.0 TH/MM3 CBC Comment AUTO DIFF Differential Total Cells 100 Counted Neutrophils % (Manual) 87 % Band Neutrophils % 3 % Lymphocytes % 2 % Monocytes % 3 % Neutrophils # (Manual) 15.5 TH/MM3 Myelocytes 5 % Nucleated Red Blood Cells 1 /100 WBC Differential Comment FINAL DIFF MANUAL Platelet Estimate NORMAL Platelet Morphology Comment NORMAL Ovalocytes 1+ Activated Partial 55.3 SEC Thromboplast Time Sodium Level 135 MEQ/L Potassium Level 4.0 MEQ/L Chloride Level 98 MEQ/L Carbon Dioxide Level 27.3 MEQ/L Anion Gap 10 MEQ/L Blood Urea Nitrogen 17 MG/DL Creatinine 0.97 MG/DL Estimat Glomerular Filtration 81 ML/MIN Rate Random Glucose 233 MG/DL Calcium Level 8.3 MG/DL Total Bilirubin 0.6 MG/DL Aspartate Amino Transf 33 U/L (AST/SGOT) Alanine Aminotransferase 75 U/L (ALT/SGPT) Alkaline Phosphatase 134 U/L Total Protein 6.0 GM/DL Albumin 3.1 GM/DL Physical Exam General General Appearance: Well Developed, Well Nourished, No Acute Distress, Comfortable, Anxious Eyes Eye Exam: Pupils Equal, Sclera White, Extraocular Movement Intact Ears & Nose Ears & Nose Exam: Nasal Mucosa [place] Throat Throat Exam: Oral Mucosa [place] & Moist, Oral Pharynx Normal Neck Neck Exam: Neck Supple, Trachea Midline Pulmonary Resp Exam: Breath Sounds Equal, No Distress, Rhonchi Resp Remarks bilateral wheezing. Cardiology CV Exam: Regular, Normal Sinus Rhythm Gastrointestinal/Abdomen GI Exam: Soft, Non-Tender, Bowel Sounds Present Musculoskeletal MS Exam: Normal Tone Integumentary Skin Exam: Warm, Dry Skin Remarks right hip wound. Extremeties Extremities Exam: No Edema, Pedal Pulses Palpable, Moderate Edema, Pitting Edema Extremeties Remarks tenderness right hip. Neurologic Neuro Exam: Alert, Awake, Oriented, Speech Clear, Moving All Extremities Psychiatric Psych Exam: Appropriate Responses PUD Prophylasis PUD Prophylaxis: Protonix Assessment/Plan Assessment/Plan Assessment and Plan 1. Acute asthma/ COPD exacerbation with respiratory failure/insufficiency on admission...on bronchodilator Prednisone. and Antibiotic oral. 2. Coumadin toxicity...resolved.. on Heparin gtt. + coumadin 2 mg PO Daily. 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 4. Tachycardia. 5. Hypertension. 6. History of depression and anxiety. 7. History of DVT and PE. Patient have episode of bleeding from rectum and nose with xarelto d/w hematology Dr Reuben Cali discontinued Xarelto. on heparin gtt..+ coumadin 2 mg PO Daily. 8. Arthritis. 9. History of hyperlipidemia. 10. Gastroesophageal reflux disease (GERD). 11. 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 Continue oxygen , keep saturation above 92%. PO steroid Aerosol treatment qid & q2 hrs prn continue with Symbicort twice daily Continue Singulair On Theophylline Antitussives when necessary Continue with Xanax dose 0.5 q 8 hr On PO Ceftin BID. On Diflucan..ID Input noted. Analgesics Wound care on heparin gtt. cont Cardizem Proton pump inhibitor for GI prophylaxis. S/P COLONOSCOPY..POOR PREP. d/w PT Will follow Check CBC with diff CMP in AM. Discussed Condition with: Patient Myron Woodward MD Sep 16, 2016 11:56
[2016-09-16 15:34] LABS: INTERNATIONAL NORMALIZED RATIO 1.1 RATIO
[2016-09-16] MEDS: FUROSEMIDE 20 MG TAB PO SCH (17:16)
[2016-09-16] MEDS: ALPRAZolam 0.5 MG TAB PO PRN (17:17)
[2016-09-16] MEDS: WARFARIN SOD 2 MG TAB PO SCH (17:17)
--- NOTE | 2016-09-16 17:39 | PD.ORT.PN ---
Subjective Post Op Day #: approximately 6 weeks post articulating spacer for septic hip right Pain Scale: still hurts some Subjective Remarks Hip still hurts a bit, ' should i worry about it? I would like hip rep surgery in a couple of weeks' Range of Motion sitting on recliner hip flexed 90 degrees and abducted Objective Vitals Vital Signs Date Time Temp Pulse Resp B/P Pulse Ox O2 Delivery O2 Flow Rate FiO2 09/16/16 16:00 97.6 125 22 130/89 98 09/16/16 14:18 18 09/16/16 12:00 98.5 126 22 142/100 98 09/16/16 09:42 20 09/16/16 09:00 Nasal Cannula 3.00 45 09/16/16 09:00 103 09/16/16 08:00 97.2 123 22 126/90 98 09/16/16 07:32 98 Nasal Cannula 3.00 09/16/16 04:00 96.6 113 27 110/84 98 09/16/16 03:18 123 09/16/16 03:02 99 45 09/16/16 03:00 98 Bi-Pap 45 09/15/16 23:41 96.6 127 26 150/93 99 09/15/16 23:34 99 Bi-Pap 45 09/15/16 23:30 100 45 09/15/16 21:10 99 Bi-Pap 45 09/15/16 20:45 99 45 09/15/16 20:41 99 Bi-Pap 45 09/15/16 20:32 96 Nasal Cannula 3.00 09/15/16 20:27 97.0 120 20 131/92 97 I/O 09/15/16 09/15/16 09/15/16 09/16/16 09/16/16 09/16/16 07:00 15:00 23:00 07:00 15:00 23:00 Intake Total 480 ml 720 ml 148 ml Output Total 1200 ml 1575 ml 700 ml 800 ml Balance -720 ml -855 ml -700 ml -800 ml 148 ml Intake Oral 480 ml 720 ml IV Total 148 ml Output Urine Total 1200 ml 1575 ml 700 ml 800 ml # Bowel Movements 0 1 0 Result Diagram: 09/16/16 0630 09/16/16 0630 Other Results Laboratory Tests Test 09/15/16 09/16/16 20:00 14:15 Prothrombin Time 10.9 SEC 12.0 SEC (9.8-11.6) (9.8-11.6) Prothromb Time International 1.0 RATIO 1.1 RATIO Ratio Imaging Last 72 hours Impressions Hip X-Ray 09/03/16 0000 Signed Impressions: Service Date/Time: Saturday, September 03, 2016 11:41 - CONCLUSION: 1. No acute fracture or joint dislocation. 2. Right hip prosthesis appears to be grossly intact. Tyler Mast MD Objective Remarks A,A, and O Sitting OOB without O2, asthma improved,, Right hip: no active drainage. Icision/scar maturing. very l;ittle edema and redness. Assessment & Plan Assessment and Plan continued, remarkable improvement right hip C albicans infection since starting IV macrofungin, now close to two weeks. suggest total of 6 weeks of IV fungicidal and continue oral suppression 6 more weeks.after that. given his perilous general condition, particularly pulmonary, to hold off any further ortho intervention indefinitely. Shaan Lindo MD Sep 16, 2016 17:39
[2016-09-16] MEDS: ATORVASTATIN 20 MG TAB PO SCH (21:28)
[2016-09-16] MEDS: MONTELUKAST SODIUM 10 MG TAB PO SCH (21:29)
[2016-09-17] VITALS (9 sets, daily range): BP systolic 100–151; BP diastolic 52–93; PULSE 78–127; RESP 18–22; TEMP 95.5–97.8; O2SAT 95–100
[2016-09-17] MEDS: HEPARIN-D5W INJ 250 ML IV SCH (01:43)
[2016-09-17 06:04] LABS: BASOPHIL # 0.1 TH/MM3 (0-0.2); BASOPHIL % 0.4 % (0.0-2.0); EOSINOPHIL # 0.1 TH/MM3 (0-0.4); EOSINOPHIL % 0.3 % (0.0-4.0); HEMATOCRIT 29.3 % (39.0-51.0); LYMPH % 8.4 % (9.0-44.0); LYMPHOCYTE # 1.5 TH/MM3 (1.0-4.8); MEAN CELL VOLUME 75.9 FL (80.0-100.0); MEAN CORPUSCULAR HEMOGLOBIN 24.3 PG (27.0-34.0); MEAN CORPUSCULAR HGB CONC 31.9 % (32.0-36.0); MONO % 5.2 % (0.0-8.0); NEUT % 85.7 % (16.0-70.0); PLATELET COUNT 195 TH/MM3 (150-450); RED BLOOD COUNT 3.86 MIL/MM3 (4.50-5.90); RED CELL DISTRIBUTION WIDTH 24.9 % (11.6-17.2); WHITE BLOOD COUNT 17.5 TH/MM3 (4.0-11.0)
[2016-09-17 06:06] LABS: HEMO FLAGS AUTO DIFF
[2016-09-17 06:32] LABS: ALT (GPT) 65 U/L (12-78); ANION GAP 9 MEQ/L (5-15); AST (GOT) 20 U/L (15-37); BICARBONATE 29.5 MEQ/L (21.0-32.0); BLOOD UREA NITROGEN 13 MG/DL (7-18); CHLORIDE 96 MEQ/L (98-107); GLOMERULAR FILTRATION RATE 80 ML/MIN (>89); POTASSIUM 3.7 MEQ/L (3.5-5.1); SODIUM (NA) 134 MEQ/L (136-145)
[2016-09-17] MEDS: ACETAMINOPHEN/HYDROcodone 325 MG/7.5 MG TAB PO PRN ×3 (06:32→22:02)
[2016-09-17 06:34] LABS: ALKALINE PHOSPHATASE 128 U/L (45-117); TOTAL BILIRUBIN ADULT 0.5 MG/DL (0.2-1.0)
[2016-09-17] MEDS: INSULIN ASPART SUPPLEMENTAL SCALE SQ SCH ×4 (06:35→21:59)
[2016-09-17 06:58] LABS: INTERNATIONAL NORMALIZED RATIO 1.4 RATIO; PROTHROMBIN TIME - PATIENT 15.4 SEC (9.8-11.6)
--- NOTE | 2016-09-17 07:57 | HHI.PR ---
Subjective History of Present Illness Patient feeling weak and tired still wheezing c/o sever right hip pain s/p CT Scan of Pelvis shows large collection of fluid orthopedic managing. D/W RN at bed side. on oral Prednisone bronchodialtors .... have extremity edema better on Lasix 20 mg PO daily...on heparin gtt. and coumadin. high WBC count on steroids will monitor. Review of Systems Constitutional Constitutional: Fatigue, Weakness Pulmonary Respiratory: Coughing, Shortness of Breath, Wheezing Cardiology CV Remarks extremity edema. Musculoskeletal MS: Swelling MS Remarks extremity edema better. Allergic/Immunologic Allergic/Immunologic: Asthma Vitals/Results Intake & Output 09/16/16 09/16/16 09/17/16 15:00 23:00 07:00 Intake Total 940 ml 508 ml 125 ml Output Total 1150 ml 300 ml Balance -210 ml 208 ml 125 ml Intake Oral 940 ml 360 ml IV Total 148 ml 125 ml Output Urine Total 1150 ml 300 ml # Bowel Movements 1 0 Vital Signs Vital Signs Date Time Temp Pulse Resp B/P Pulse Ox O2 Delivery O2 Flow Rate FiO2 09/17/16 04:25 99 Bi-Pap 45 09/17/16 04:00 95.5 101 22 131/81 100 09/17/16 03:45 98 30 09/17/16 02:00 Bi-Pap 09/17/16 00:23 Bi-Pap 09/17/16 00:00 97.8 116 20 129/90 98 09/16/16 23:45 95 45 09/16/16 23:31 99 Bi-Pap 45 09/16/16 22:37 19 09/16/16 22:05 Nasal Cannula 3.00 09/16/16 20:37 98 Nasal Cannula 3.00 09/16/16 20:00 97.4 118 18 133/87 99 09/16/16 19:42 117 09/16/16 16:00 97.6 125 22 130/89 98 09/16/16 12:00 98.5 126 22 142/100 98 09/16/16 09:42 20 09/16/16 09:00 Nasal Cannula 3.00 45 09/16/16 09:00 103 09/16/16 08:00 97.2 123 22 126/90 98 CBC/BMP: 09/17/16 0545 09/17/16 0545 Lab Results Laboratory Tests Test 09/16/16 09/17/16 14:15 05:45 Prothrombin Time 12.0 SEC 15.4 SEC Prothromb Time International 1.1 RATIO 1.4 RATIO Ratio White Blood Count 17.5 TH/MM3 Red Blood Count 3.86 MIL/MM3 Hemoglobin 9.4 GM/DL Hematocrit 29.3 % Mean Corpuscular Volume 75.9 FL Mean Corpuscular Hemoglobin 24.3 PG Mean Corpuscular Hemoglobin 31.9 % Concent Red Cell Distribution Width 24.9 % Platelet Count 195 TH/MM3 Mean Platelet Volume 7.4 FL Neutrophils (%) (Auto) 85.7 % Lymphocytes (%) (Auto) 8.4 % Monocytes (%) (Auto) 5.2 % Eosinophils (%) (Auto) 0.3 % Basophils (%) (Auto) 0.4 % Neutrophils # (Auto) 15.0 TH/MM3 Lymphocytes # (Auto) 1.5 TH/MM3 Monocytes # (Auto) 0.9 TH/MM3 Eosinophils # (Auto) 0.1 TH/MM3 Basophils # (Auto) 0.1 TH/MM3 CBC Comment AUTO DIFF Activated Partial 72.0 SEC Thromboplast Time Sodium Level 134 MEQ/L Potassium Level 3.7 MEQ/L Chloride Level 96 MEQ/L Carbon Dioxide Level 29.5 MEQ/L Anion Gap 9 MEQ/L Blood Urea Nitrogen 13 MG/DL Creatinine 0.98 MG/DL Estimat Glomerular Filtration 80 ML/MIN Rate Random Glucose 222 MG/DL Calcium Level 8.8 MG/DL Total Bilirubin 0.5 MG/DL Aspartate Amino Transf 20 U/L (AST/SGOT) Alanine Aminotransferase 65 U/L (ALT/SGPT) Alkaline Phosphatase 128 U/L Total Protein 5.8 GM/DL Albumin 3.1 GM/DL Physical Exam General General Appearance: Well Developed, Well Nourished, No Acute Distress, Comfortable, Anxious Eyes Eye Exam: Pupils Equal, Sclera White, Extraocular Movement Intact Ears & Nose Ears & Nose Exam: Nasal Mucosa [place] Throat Throat Exam: Oral Mucosa [place] & Moist, Oral Pharynx Normal Neck Neck Exam: Neck Supple, Trachea Midline Pulmonary Resp Exam: Breath Sounds Equal, No Distress, Rhonchi Resp Remarks bilateral wheezing. Cardiology CV Exam: Regular, Normal Sinus Rhythm Gastrointestinal/Abdomen GI Exam: Soft, Non-Tender, Bowel Sounds Present Musculoskeletal MS Exam: Normal Tone Integumentary Skin Exam: Warm, Dry Skin Remarks right hip wound. Extremeties Extremities Exam: No Edema, Pedal Pulses Palpable, Moderate Edema, Pitting Edema Extremeties Remarks tenderness right hip. Neurologic Neuro Exam: Alert, Awake, Oriented, Speech Clear, Moving All Extremities Psychiatric Psych Exam: Appropriate Responses PUD Prophylasis PUD Prophylaxis: Protonix Assessment/Plan Assessment/Plan Assessment and Plan 1. Acute asthma/ COPD exacerbation with respiratory failure/insufficiency on admission...on bronchodilator Prednisone. and Antibiotic oral. 2. Coumadin toxicity...resolved.. on Heparin gtt. + coumadin 2 mg PO Daily. 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 4. Tachycardia. 5. Hypertension. 6. History of depression and anxiety. 7. History of DVT and PE. Patient have episode of bleeding from rectum and nose with xarelto d/w hematology Dr Reuben Cali discontinued Xarelto. on heparin gtt..+ coumadin 2 mg PO Daily. 8. Arthritis. 9. History of hyperlipidemia. 10. Gastroesophageal reflux disease (GERD). 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 Sever right hip pain s/p CT Scan of Pelvis shows large collection of fluid around right hip prothesis ..orthopedic managing. 13. High WBC count on steroids will monitor. PLAN: Lasix 40 mg PO Daily. Continue oxygen , keep saturation above 92%. PO steroid Aerosol treatment qid & q2 hrs prn continue with Symbicort twice daily Continue Singulair On Theophylline Antitussives when necessary Continue with Xanax dose 0.5 q 8 hr On PO Ceftin BID. On Diflucan..ID Input noted. Analgesics Wound care on heparin gtt. cont Cardizem Proton pump inhibitor for GI prophylaxis. S/P COLONOSCOPY..POOR PREP. d/w PT Will follow Check CBC with diff CMP PT/INR in AM. Discussed Condition with: Patient Myron Woodawrd MD Sep 17, 2016 07:57
[2016-09-17] MEDS: SUCRALFATE 1 GM TAB PO SCH ×3 (08:29→18:00)
[2016-09-17] MEDS: PANTOPRAZOLE SOD 40 MG DELAYED RELEASE TAB PO SCH (08:30)
[2016-09-17] MEDS: CEFUROXIME AXETIL 500 MG TAB PO SCH ×2 (08:30→21:56)
[2016-09-17] MEDS: THEOPHYLLINE 200 MG EXTENDED RELEASE CAP PO SCH (08:30)
[2016-09-17] MEDS: FUROSEMIDE 20 MG TAB PO SCH (08:30)
[2016-09-17] MEDS: LORazepam 0.5 MG TAB PO SCH ×2 (08:30→21:55)
[2016-09-17] MEDS: predniSONE 20 MG TAB PO SCH ×2 (08:30→21:56)
[2016-09-17] MEDS: LACTATED RINGER'S 1000 ML IV SCH (08:30)
[2016-09-17] MEDS: DILTIAZEM-CD 180 MG CAP ER PO SCH (08:30)
[2016-09-17] MEDS: FLUCONAZOLE 200 MG TAB PO SCH (08:31)
[2016-09-17] MEDS: POTASSIUM CHLORIDE 10 MEQ CONTROLLED RELEASE TAB PO SCH ×2 (08:31→21:56)
[2016-09-17] MEDS: SODIUM CHLORIDE 0.9% FLUSH 5 ML FLUSH FLUSH SCH ×2 (09:00→21:54)
[2016-09-17 09:01] LABS: BANDS 6 % (0-6); CORRECTED NUCLEATED RBC 1 /100 WBC (0-0); METAMYELOCYTES 5 % (0-1); MYELOCYTES 1 % (0-0); NEUTROPHIL # MANUAL DIFF 16.5 TH/MM3 (1.8-7.7); POLYS (SEG NEUTROPHILS) 82 % (16-70); WBC DIFF SAMPLE 100
[2016-09-17 09:02] LABS: PLATELET ESTIMATE SMEAR NORMAL (NORMAL); PLATELET MORPHOLOGY NORMAL (NORMAL)
[2016-09-17 09:03] LABS: OVALOCYTES 1+ (NORMAL); SCAN/DIFF FINAL DIFF MANUAL
[2016-09-17] MEDS: RESP: ALBUTEROL 2.5 MG/3 ML NEB (PRN) NEB ×2 (10:02→19:36)
--- NOTE | 2016-09-17 10:21 | PD.ONC.PN ---
Subjective Subjective Remarks Afebrile overnight. Patient complaining of continued and worsening pain in his right hip. He wants me to order imaging of it. He denies any bleeding. Objective Data Date Time Temp Pulse Resp B/P Pulse Ox O2 Delivery O2 Flow Rate FiO2 09/17/16 10:04 98 Nasal Cannula 3.00 09/17/16 08:00 96.2 111 18 115/90 98 09/17/16 04:25 99 Bi-Pap 45 09/17/16 04:00 95.5 101 22 131/81 100 09/17/16 03:45 98 30 09/17/16 02:00 Bi-Pap 09/17/16 00:23 Bi-Pap 09/17/16 00:00 97.8 116 20 129/90 98 09/16/16 23:45 95 45 09/16/16 23:31 99 Bi-Pap 45 09/16/16 22:37 19 09/16/16 22:05 Nasal Cannula 3.00 09/16/16 20:37 98 Nasal Cannula 3.00 09/16/16 20:00 97.4 118 18 133/87 99 09/16/16 19:42 117 09/16/16 16:00 97.6 125 22 130/89 98 09/16/16 12:00 98.5 126 22 142/100 98 09/17/16 09/17/16 09/17/16 07:00 15:00 23:00 Intake Total 125 ml Output Total 975 ml Balance 125 ml -975 ml Result Diagram: 09/17/16 0545 09/17/16 0545 Laboratory Results Laboratory Tests Test 09/16/16 09/17/16 14:15 05:45 Prothrombin Time 12.0 SEC 15.4 SEC Prothromb Time International 1.1 RATIO 1.4 RATIO Ratio White Blood Count 17.5 TH/MM3 Red Blood Count 3.86 MIL/MM3 Hemoglobin 9.4 GM/DL Hematocrit 29.3 % Mean Corpuscular Volume 75.9 FL Mean Corpuscular Hemoglobin 24.3 PG Mean Corpuscular Hemoglobin 31.9 % Concent Red Cell Distribution Width 24.9 % Platelet Count 195 TH/MM3 Mean Platelet Volume 7.4 FL Neutrophils (%) (Auto) 85.7 % Lymphocytes (%) (Auto) 8.4 % Monocytes (%) (Auto) 5.2 % Eosinophils (%) (Auto) 0.3 % Basophils (%) (Auto) 0.4 % Neutrophils # (Auto) 15.0 TH/MM3 Lymphocytes # (Auto) 1.5 TH/MM3 Monocytes # (Auto) 0.9 TH/MM3 Eosinophils # (Auto) 0.1 TH/MM3 Basophils # (Auto) 0.1 TH/MM3 CBC Comment AUTO DIFF Differential Total Cells 100 Counted Neutrophils % (Manual) 82 % Band Neutrophils % 6 % Lymphocytes % 3 % Monocytes % 3 % Neutrophils # (Manual) 16.5 TH/MM3 Metamyelocytes 5 % Myelocytes 1 % Nucleated Red Blood Cells 1 /100 WBC Differential Comment FINAL DIFF MANUAL Platelet Estimate NORMAL Platelet Morphology Comment NORMAL Ovalocytes 1+ Activated Partial 72.0 SEC Thromboplast Time Sodium Level 134 MEQ/L Potassium Level 3.7 MEQ/L Chloride Level 96 MEQ/L Carbon Dioxide Level 29.5 MEQ/L Anion Gap 9 MEQ/L Blood Urea Nitrogen 13 MG/DL Creatinine 0.98 MG/DL Estimat Glomerular Filtration 80 ML/MIN Rate Random Glucose 222 MG/DL Calcium Level 8.8 MG/DL Total Bilirubin 0.5 MG/DL Aspartate Amino Transf 20 U/L (AST/SGOT) Alanine Aminotransferase 65 U/L (ALT/SGPT) Alkaline Phosphatase 128 U/L Total Protein 5.8 GM/DL Albumin 3.1 GM/DL Administered Medications Medications (Trade) Dose Ordered Sig/Gabi Route PRN Reason Start Time Stop Time Status Last Admin Dose Admin Atorvastatin Calcium (Lipitor) 20 mg HS PO 08/29/16 21:00 09/16/16 21:28 Budesonide/ Formoterol Fumarate (Symbicort 160-4.5 Inh) 2 puff Q12HR INH 08/29/16 21:00 09/16/16 21:30 Diltiazem HCl (Cardizem Cd) 360 mg DAILY PO 08/30/16 09:00 09/17/16 08:30 Fluconazole (Diflucan) 400 mg DAILY PO 08/30/16 09:00 09/17/16 08:31 Acetaminophen/ Hydrocodone Bitart (Paxton 7.5-325 Mg) 1 tab TID PRN PO PAIN 08/29/16 18:30 09/17/16 06:32 Montelukast Sodium (Singulair) 10 mg HS PO 08/29/16 21:00 09/16/16 21:29 Pantoprazole Sodium (Protonix) 40 mg DAILY PO 08/30/16 09:00 09/17/16 08:30 Promethazine HCl/ Codeine (Phenergan-Codeine Liq) 5 ml Q4H PRN PO COUGH AND/OR COLD SYMPTOMS 08/29/16 18:30 09/15/16 20:25 Sucralfate (Carafate) 1 gm TID PO 08/30/16 09:00 09/17/16 08:29 IV Flush (NS Flush) 2 ml UNSCH PRN FLUSH FLUSH AFTER USING IV ACCESS 08/29/16 18:30 09/03/16 21:04 IV Flush (NS Flush) 2 ml BID FLUSH 08/29/16 21:00 09/15/16 20:27 Ondansetron HCl (Zofran Inj) 4 mg Q6H PRN IVP NAUSEA OR VOMITING 08/29/16 18:30 09/12/16 15:47 Lorazepam (Ativan) 0.5 mg BID PO 08/30/16 09:00 09/17/16 08:30 Clonidine (Catapres) 0.1 mg Q6H PRN PO SBP>160, DBP>90 09/02/16 23:45 09/09/16 05:21 IV Flush (NS Flush) See Protocol DAILY IVF 09/05/16 09:00 09/13/16 09:00 Heparin Sodium (Porcine) (Heparin Central Flush) See Protocol DAILY IVF 09/05/16 09:00 09/12/16 08:43 Cefuroxime Axetil (Ceftin) 500 mg Q12HR PO 09/06/16 09:00 09/17/16 08:30 Potassium Chloride (KCl) 10 meq Q12HR PO 09/06/16 21:00 09/17/16 08:31 Theophylline (Samuel-24) 400 mg DAILY PO 09/08/16 09:00 09/17/16 08:30 Promethazine HCl (Phenergan Inj) 12.5 mg Q8H PRN IM NAUESA 09/08/16 20:15 09/15/16 20:32 Prednisone 20 mg 20 mg BID PO 09/11/16 21:00 09/17/16 08:30 Heparin Sodium/ Dextrose (Heparin-D5W Inj) 250 ml @ 0 mls/hr TITRATE IV 09/13/16 06:45 09/17/16 01:43 Warfarin Sodium (Coumadin) 2 mg DAILY@16 PO 09/15/16 16:00 09/16/16 17:17 Furosemide (Lasix) 20 mg DAILY PO 09/16/16 15:00 09/17/16 08:30 Objective Remarks GENERAL: Middle aged male. He is sitting up in bed in nad. SKIN: Warm and dry. HEAD: Normocephalic. EYES: No injection or drainage. NECK: Supple, trachea midline. CARDIOVASCULAR: +S1/S2, tachy RESPIRATORY: inspiratory and expiratory wheeze GASTROINTESTINAL: Abdomen soft, non-tender, nondistended. EXTREMITIES: No cyanosis. right thigh scar noted. there is some edema, its hard to tell if this is chronic due to hypertrophic tissue or acute. no fluid formation, no skin changes. NEUROLOGICAL: awake and alert, normal speech. Assessment/Plan Problem List: (1) Acute hypercapnic respiratory failure Status: Acute (2) Thrombocytopenia Status: Resolved (3) Superficial thrombophlebitis Status: Acute (4) Pulmonary embolism Status: Acute (5) Acute asthma exacerbation Status: Acute (6) Warfarin-induced coagulopathy Status: Acute (7) Septic hip Status: Acute (8) Abscess of hip, right Status: Acute Assessment 51-year-old male with a past medical history of recurrent asthma attacks with recurrent hospital admissions, hypertension, hyperlipidemia, history of pulmonary embolism and DVT and also right hip wound infection who was admitted to the hospital with shortness of breath and exacerbation of asthma. Hematology has been consulted to evaluate this patient who has been on Coumadin for DVT and pulmonary embolism and has been difficult to manage due labile INR. He on he has persistent suboptimal therapeutic levels. 1. Hx of Pulmonary embolism and DVT-- in the setting of a hospital admission in december 2015 2. Labile and difficult to manage INR while on Coumadin 3. Infected right hip wound. 4. Exacerbation of asthma. 5. GIB--resolved. colonoscopy was abandoned due to poor prep. GI signed off-- GIB likely due to hemorrhoids. H/H stable. Plan 1. check CT pelvis re: h/o hematoma 2. monitor CBC 3. continue heparin-->coumadin Attending Statement The exam, history, and the medical decision-making described in the above note were completed with the assistance of the mid-level provider. I reviewed and agree with the findings presented. I attest that I had a [id number] encounter with the patient on the same day, and personally performed and documented my assessment and findings in the medical record. Problem Qualifiers (1) Acute asthma exacerbation: Qualified Code: J45.51 - Severe persistent asthma with acute exacerbation Berenice Lo Sep 17, 2016 10:21 Reuben Cali MD Sep 17, 2016 21:34
--- NOTE | 2016-09-17 11:24 | RADRPT ---
EXAM DATE/TIME: 09/17/2016 10:53 [facility] COMPARISON: HIP RIGHT (AP&LAT 2/3VWS) WO AP PELVIS, August 09, 2016, 17:46. CT PELVIS W/O CONTRAST, March 18, 2016, 18:06. INDICATIONS : Right hip pain. ORAL CONTRAST: No oral contrast ingested. RADIATION DOSE: 15.26 CTDIvol (mGy) MEDICAL HISTORY : Hypertension. Deep venous thrombosis. Cardiovascular disease SURGICAL HISTORY : None. ENCOUNTER: Initial ACUITY: 1 day PAIN SCALE: 4/10 LOCATION: Right pelvis TECHNIQUE: Volumetric scanning of the pelvis was performed. Using automated exposure control and adjustment of the mA and/or kV according to patient size, radiation dose was kept as low as reasonab ly achievable to obtain optimal diagnostic quality images. FINDINGS: BOWEL/MESENTERY: The visualized small and large bowel demonstrate no acute abnormality. There is no free fluid. BLADDER: There is no wall thickening or mass. RETROPERITONEUM: There is no aneurysm or lymphadenopathy. REPRODUCTIVE: Within normal limits. INGUINAL: There is no lymphadenopathy or hernia. MUSCULOSKELETAL: As compared to the prior CT the patient has had interval total right hip arthrop lasty. The femoral prosthesis appears appropriate in position with respect to the adjacent osseous pe lvis. There is a large complex fluid collection extending from the posterior aspect of the prosthesis into the adjacent soft tissues of the right thigh and a moderate with lateral extension into the adj acent superficial fat at the level of the greater trochanter. High density material is identified lay ering posteriorly. This fluid collection is deep to the overlying gluteus muscles. The fluid collect ion measures grossly 11.9 cm craniocaudally by 12 cm transversely by 7.4 cm anterior posterior. CONCLUSION: Large complex fluid collection adjacent to the right femoral prosthesis with layering high density ma terial identified dependently. Valentina Hollis MD on September 17, 2016 at 11:16 Board Certified Radiologist. This report was verified electronically.
[2016-09-17] MEDS: traMADol HCL 50 MG TAB PO PRN ×2 (11:36→19:43)
[2016-09-17] MEDS: RESP: LEVALBUTEROL HYDROCHLORIDE 1.25 MG/3 ML NEB (PRN) NEB ×2 (13:23→16:06)
[2016-09-17 13:53] LABS: INTERNATIONAL NORMALIZED RATIO 1.4 RATIO; PROTHROMBIN TIME - PATIENT 15.4 SEC (9.8-11.6)
[2016-09-17] MEDS: PROMETHAZINE/CODEINE 6.25 MG/10 MG/5 ML CUP PO PRN (16:10)
[2016-09-17] MEDS: ALPRAZolam 0.5 MG TAB PO PRN (19:43)
[2016-09-17] MEDS: PROMETHAZINE INJ 25 MG/ML VIAL IM PRN (19:57)
[2016-09-17] MEDS: BUDESONIDE-FORMOTEROL 160/4.5 MCG INHALER INH SCH (21:54)
[2016-09-17] MEDS: ATORVASTATIN 20 MG TAB PO SCH (21:56)
[2016-09-17] MEDS: MONTELUKAST SODIUM 10 MG TAB PO SCH (21:56)
[2016-09-17] MEDS ORDERED: MICAFUNGIN INJ 150 MG in SODIUM CHLORIDE 0.9% INJ 100 ML IV SCH (22:00)
[2016-09-18] VITALS (11 sets, daily range): BP systolic 127–140; BP diastolic 82–93; PULSE 95–128; RESP 14–18; TEMP 97–98.1; O2SAT 96–100
[2016-09-18] MEDS ORDERED: MICAFUNGIN INJ 150 MG in SODIUM CHLORIDE 0.9% INJ 100 ML IV SCH ×2
[2016-09-18] MEDS: INSULIN ASPART SUPPLEMENTAL SCALE SQ SCH ×4 (06:41→20:49)
[2016-09-18] MEDS: SODIUM CHLORIDE 0.9% FLUSH 5 ML FLUSH FLUSH PRN (06:54)
[2016-09-18] MEDS: ONDANSETRON HCL 4 MG/2 ML VIAL IVP PRN ×2 (06:54→09:10)
[2016-09-18] MEDS: ACETAMINOPHEN/HYDROcodone 325 MG/7.5 MG TAB PO PRN ×4 (06:58→23:44)
[2016-09-18 07:04] LABS: AUTOMATED NEUTROPHIL # 17.8 TH/MM3 (1.8-7.7); BASOPHIL # 0.1 TH/MM3 (0-0.2); BASOPHIL % 0.4 % (0.0-2.0); EOSINOPHIL % 0.1 % (0.0-4.0); HEMATOCRIT 27.9 % (39.0-51.0); LYMPH % 6.8 % (9.0-44.0); LYMPHOCYTE # 1.4 TH/MM3 (1.0-4.8); MEAN CELL VOLUME 76.6 FL (80.0-100.0); MEAN CORPUSCULAR HEMOGLOBIN 24.2 PG (27.0-34.0); MEAN CORPUSCULAR HGB CONC 31.6 % (32.0-36.0); MONO % 4.8 % (0.0-8.0); NEUT % 87.9 % (16.0-70.0); PLATELET COUNT 221 TH/MM3 (150-450); RED BLOOD COUNT 3.65 MIL/MM3 (4.50-5.90); RED CELL DISTRIBUTION WIDTH 25.2 % (11.6-17.2); WHITE BLOOD COUNT 20.3 TH/MM3 (4.0-11.0)
[2016-09-18 07:06] LABS: APTT (PATIENT) 68.1 SEC (24.3-30.1)
[2016-09-18 07:27] LABS: HEMO FLAGS AUTO DIFF
--- NOTE | 2016-09-18 08:17 | HHI.PR ---
Subjective History of Present Illness Patient feeling weak and tired still wheezing on oral Prednisone bronchodialtors c/o sever right hip pain s/p CT Scan of Pelvis shows large collection of fluid orthopedic managing. d/w Orthopedic getting US Guided fluid drainage and OR Tomorrow.. have extremity edema better on Lasix 20 mg PO daily...on heparin gtt. holding coumadin. high WBC count on steroids will monitor. Review of Systems Constitutional Constitutional: Fatigue, Weakness Pulmonary Respiratory: Coughing, Shortness of Breath, Wheezing Cardiology CV Remarks extremity edema. Musculoskeletal MS: Swelling MS Remarks extremity edema better. Allergic/Immunologic Allergic/Immunologic: Asthma Vitals/Results Intake & Output 09/17/16 09/17/16 09/18/16 15:00 23:00 07:00 Intake Total 960 ml 360 ml 240 ml Output Total 2425 ml 450 ml 1000 ml Balance -1465 ml -90 ml -760 ml Intake Oral 960 ml 360 ml 240 ml Output Urine Total 2425 ml 450 ml 1000 ml # Bowel Movements 0 1 Vital Signs Vital Signs Date Time Temp Pulse Resp B/P Pulse Ox O2 Delivery O2 Flow Rate FiO2 09/18/16 04:00 97.3 119 18 135/83 96 09/18/16 00:00 97.4 128 18 136/93 97 09/17/16 20:45 16 09/17/16 20:00 97.6 127 19 151/93 98 09/17/16 19:39 97 21 09/17/16 16:00 96.1 78 18 138/91 98 09/17/16 12:00 96.9 89 20 100/52 95 09/17/16 10:04 98 Nasal Cannula 3.00 CBC/BMP: 09/18/16 0630 09/17/16 0545 Lab Results Laboratory Tests Test 09/17/16 09/18/16 09/18/16 13:30 06:30 06:37 Prothrombin Time 15.4 SEC Prothromb Time International 1.4 RATIO Ratio White Blood Count 20.3 TH/MM3 Red Blood Count 3.65 MIL/MM3 Hemoglobin 8.8 GM/DL Hematocrit 27.9 % Mean Corpuscular Volume 76.6 FL Mean Corpuscular Hemoglobin 24.2 PG Mean Corpuscular Hemoglobin 31.6 % Concent Red Cell Distribution Width 25.2 % Platelet Count 221 TH/MM3 Mean Platelet Volume 7.5 FL Neutrophils (%) (Auto) 87.9 % Lymphocytes (%) (Auto) 6.8 % Monocytes (%) (Auto) 4.8 % Eosinophils (%) (Auto) 0.1 % Basophils (%) (Auto) 0.4 % Neutrophils # (Auto) 17.8 TH/MM3 Lymphocytes # (Auto) 1.4 TH/MM3 Monocytes # (Auto) 1.0 TH/MM3 Eosinophils # (Auto) 0.0 TH/MM3 Basophils # (Auto) 0.1 TH/MM3 CBC Comment AUTO DIFF Activated Partial 68.1 SEC Thromboplast Time Physical Exam General General Appearance: Well Developed, Well Nourished, No Acute Distress, Comfortable, Anxious Eyes Eye Exam: Pupils Equal, Sclera White, Extraocular Movement Intact Ears & Nose Ears & Nose Exam: Nasal Mucosa [place] Throat Throat Exam: Oral Mucosa [place] & Moist, Oral Pharynx Normal Neck Neck Exam: Neck Supple, Trachea Midline Pulmonary Resp Exam: Breath Sounds Equal, No Distress, Rhonchi Resp Remarks bilateral wheezing. Cardiology CV Exam: Regular, Normal Sinus Rhythm Gastrointestinal/Abdomen GI Exam: Soft, Non-Tender, Bowel Sounds Present Musculoskeletal MS Exam: Normal Tone Integumentary Skin Exam: Warm, Dry Skin Remarks right hip wound. Extremeties Extremities Exam: No Edema, Pedal Pulses Palpable, Moderate Edema, Pitting Edema Extremeties Remarks tenderness right hip. Neurologic Neuro Exam: Alert, Awake, Oriented, Speech Clear, Moving All Extremities Psychiatric Psych Exam: Appropriate Responses PUD Prophylasis PUD Prophylaxis: Protonix Assessment/Plan Assessment/Plan Assessment and Plan 1. Acute asthma/ COPD exacerbation with respiratory failure/insufficiency on admission...on bronchodilator Prednisone. and Antibiotic oral. 2. Coumadin toxicity...resolved.. on Heparin gtt. holding coumadin. going to OR Tomorrow. 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 4. Tachycardia. 5. Hypertension. 6. History of depression and anxiety. 7. History of DVT and PE. Patient have episode of bleeding from rectum and nose with xarelto d/w hematology Dr Reuben Cali discontinued Xarelto. on heparin gtt..+ holding coumadin. 8. Arthritis. 9. History of hyperlipidemia. 10. Gastroesophageal reflux disease (GERD). 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 Sever right hip pain s/p CT Scan of Pelvis shows large collection of fluid orthopedic managing. d/w Orthopedic getting US Guided fluid drainage and OR Tomorrow. 13. High WBC count on steroids will monitor. PLAN: Lasix 40 mg PO Daily. Continue oxygen , keep saturation above 92%. PO steroid Aerosol treatment qid & q2 hrs prn continue with Symbicort twice daily Continue Singulair On Theophylline Antitussives when necessary Continue with Xanax dose 0.5 q 8 hr On PO Ceftin BID. On Diflucan..ID Input noted. Analgesics Wound care on heparin gtt. cont Cardizem Proton pump inhibitor for GI prophylaxis. S/P COLONOSCOPY..POOR PREP. d/w PT Will follow Check CBC with diff CMP PT/INR in AM. Discussed Condition with: Patient Myron Woodward MD Sep 18, 2016 08:17
[2016-09-18] MEDS: BUDESONIDE-FORMOTEROL 160/4.5 MCG INHALER INH SCH ×2 (09:00→20:52)
[2016-09-18] MEDS: SODIUM CHLORIDE 0.9% FLUSH 5 ML FLUSH FLUSH SCH ×2 (09:00→20:52)
[2016-09-18] MEDS: ALPRAZolam 0.5 MG TAB PO PRN (09:10)
[2016-09-18] MEDS: CEFUROXIME AXETIL 500 MG TAB PO SCH ×2 (09:10→20:50)
[2016-09-18] MEDS: predniSONE 20 MG TAB PO SCH ×2 (09:10→20:51)
[2016-09-18] MEDS: PANTOPRAZOLE SOD 40 MG DELAYED RELEASE TAB PO SCH (09:10)
[2016-09-18] MEDS: FLUCONAZOLE 200 MG TAB PO SCH (09:11)
[2016-09-18] MEDS: POTASSIUM CHLORIDE 10 MEQ CONTROLLED RELEASE TAB PO SCH ×2 (09:11→20:51)
[2016-09-18] MEDS: SUCRALFATE 1 GM TAB PO SCH ×3 (09:11→18:11)
[2016-09-18] MEDS: FUROSEMIDE 20 MG TAB PO SCH (09:11)
[2016-09-18] MEDS: LORazepam 0.5 MG TAB PO SCH ×2 (09:12→20:51)
[2016-09-18] MEDS: THEOPHYLLINE 200 MG EXTENDED RELEASE CAP PO SCH (09:12)
[2016-09-18] MEDS: DILTIAZEM-CD 180 MG CAP ER PO SCH (09:12)
[2016-09-18] MEDS: HEPARIN-D5W INJ 250 ML IV SCH (09:14)
[2016-09-18] MEDS: RESP: ALBUTEROL 2.5 MG/3 ML NEB (PRN) NEB ×2 (09:33→15:33)
[2016-09-18 09:58] LABS: ALKALINE PHOSPHATASE 132 U/L (45-117); ALT (GPT) 58 U/L (12-78); ANION GAP 11 MEQ/L (5-15); AST (GOT) 21 U/L (15-37); BLOOD UREA NITROGEN 13 MG/DL (7-18); CHLORIDE 94 MEQ/L (98-107); GLOMERULAR FILTRATION RATE 79 ML/MIN (>89); POTASSIUM 3.8 MEQ/L (3.5-5.1); SODIUM (NA) 131 MEQ/L (136-145); TOTAL BILIRUBIN ADULT 0.6 MG/DL (0.2-1.0)
[2016-09-18 10:27] LABS: BANDS 7 % (0-6); MYELOCYTES 2 % (0-0); POLYS (SEG NEUTROPHILS) 70 % (16-70); WBC DIFF SAMPLE 100
[2016-09-18 10:28] LABS: OVALOCYTES 1+ (NORMAL); PLATELET ESTIMATE SMEAR NORMAL (NORMAL); PLATELET MORPHOLOGY NORMAL (NORMAL); POLYCHROMASIA 2.2 % (0.0-1.9); SCAN/DIFF FINAL DIFF MANUAL; TEARDROP RBCS 1+ (NORMAL)
--- NOTE | 2016-09-18 10:48 | PD.ORT.PN ---
Subjective Pain Scale: 9 Subjective Remarks Hip still hurts terribly ( I stopped dilaudid pm?) Objective Vitals Vital Signs Date Time Temp Pulse Resp B/P Pulse Ox O2 Delivery O2 Flow Rate FiO2 09/18/16 09:33 98 Nasal Cannula 2.00 09/18/16 08:00 97.3 95 16 134/83 98 09/18/16 04:00 97.3 119 18 135/83 96 09/18/16 00:00 97.4 128 18 136/93 97 09/17/16 20:45 16 09/17/16 20:00 97.6 127 19 151/93 98 09/17/16 19:39 97 21 09/17/16 16:00 96.1 78 18 138/91 98 09/17/16 12:00 96.9 89 20 100/52 95 I/O 09/17/16 09/17/16 09/17/16 09/18/16 09/18/16 09/18/16 07:00 15:00 23:00 07:00 15:00 23:00 Intake Total 125 ml 960 ml 360 ml 240 ml Output Total 2425 ml 450 ml 1000 ml Balance 125 ml -1465 ml -90 ml -760 ml Intake Oral 960 ml 360 ml 240 ml IV Total 125 ml Output Urine Total 2425 ml 450 ml 1000 ml # Bowel Movements 0 1 Result Diagram: 09/18/16 0630 09/18/16 0908 Other Results Laboratory Tests Test 09/17/16 13:30 Prothrombin Time 15.4 SEC (9.8-11.6) Prothromb Time International 1.4 RATIO Ratio Imaging Objective Remarks A,A, and O In bed. Right hip looks exactly same as it casi Friday pm No drainage , some induration. Assessment & Plan Assessment and Plan CT scan hip done yesterday shows large submuscular abscess/ hematoma right hip. Discussed with radiology. To attempyt aspitation today. His PT/INR all over place promptiong heparin now. discussed with Dr. Mohamud PLAN See what aspiration yields tentatively plan arthrotomy right hip with exchange spacers vs girdlestone tomorrow Discussed with patient. To call and talk to her. To discuss with Shaan Cardenas MD Sep 18, 2016 10:48
[2016-09-18] MEDS ORDERED: LIDOCAINE HCL 1% 30 ML VIAL ONE (13:18)
[2016-09-18] MEDS ORDERED: SODIUM BICARBONATE 8.4% INJ 50 ML ONE (13:18)
--- NOTE | 2016-09-18 15:19 | RADRPT ---
EXAM DATE/TIME: 09/18/2016 12:10 [facility] COMPARISON: No previous studies available for comparison. EXTERNAL COMPARISON : [facility], MRI RIGHT HIP W/O CONTRAST, July 05, 2016. HIP, RIGHT (AP & LAT), May 102015. INDICATIONS : Right hip aspiration. MEDICAL HISTORY : Chronic obstructive pulmonary disease. Deep venous thrombosis. Hypertension. Pneumonia. Asthma. GERD. SURGICAL HISTORY : Tonsillectomy. Appendectomy. Total hip replacement, right x2. ENCOUNTER: Subsequent ACUITY: 3 days PAIN SCORE: 4/10 LOCATION: Right hip. FLUID: Total volume of 10 cc of cloudy, red fluid was removed. Fluid was sent to lab for ordered studies. Post procedure scanning reveals no hematoma or other complication. TECHNIQUE: 1. Ultrasound guidance for needle aspiration. 2. Aspiration. The risks, benefits, and alternatives to ultrasound guided aspiration were explained to the patient i n detail including the risk of bleeding and infection. Written and verbal informed consent was obtai mehdi. Under direct ultrasound guidance 22 gauge he was placed in the fluid collection about the right hip a nd 10 cc were aspirated. Material was sent for Gram stain, culture including AFB and fungus. CONCLUSION: Uncomplicated ultrasound guided aspiration. Elías Hull MD FACR on September 18, 2016 at 15:16 Board Certified Radiologist. This report was verified electronically.
[2016-09-18] MEDS: PROMETHAZINE/CODEINE 6.25 MG/10 MG/5 ML CUP PO PRN (16:39)
[2016-09-18] MEDS: traMADol HCL 50 MG TAB PO PRN (16:40)
[2016-09-18] MEDS: RESP: LEVALBUTEROL HYDROCHLORIDE 1.25 MG/3 ML NEB (PRN) NEB (20:15)
[2016-09-18] MEDS: ATORVASTATIN 20 MG TAB PO SCH (20:51)
[2016-09-18] MEDS: MONTELUKAST SODIUM 10 MG TAB PO SCH (20:51)
--- NOTE | 2016-09-18 23:36 | PD.ONC.PN ---
Subjective Subjective Remarks large fluid collection in prosthesis based on CT Orthopedic to drain fluid Objective Data Date Time Temp Pulse Resp B/P Pulse Ox O2 Delivery O2 Flow Rate FiO2 09/18/16 20:16 98 Nasal Cannula 2.00 09/18/16 20:00 97.0 116 18 132/86 96 09/18/16 16:00 97.2 100 16 127/85 97 09/18/16 13:52 98 Nasal Cannula 2.00 09/18/16 13:08 97.3 98 14 137/85 100 09/18/16 12:49 97.6 105 14 135/82 98 09/18/16 12:05 98.1 109 16 140/93 98 09/18/16 12:00 98.1 99 16 138/85 98 09/18/16 09:33 98 Nasal Cannula 2.00 09/18/16 08:00 97.3 95 16 134/83 98 09/18/16 04:00 97.3 119 18 135/83 96 09/18/16 00:00 97.4 128 18 136/93 97 09/18/16 09/18/16 09/18/16 07:00 15:00 23:00 Intake Total 664 ml 480 ml Output Total 1150 ml Balance -486 ml 480 ml Result Diagram: 09/18/16 0630 09/18/16 0908 Laboratory Results Laboratory Tests Test 09/18/16 09/18/16 09/18/16 06:30 06:37 09:08 White Blood Count 20.3 TH/MM3 Red Blood Count 3.65 MIL/MM3 Hemoglobin 8.8 GM/DL Hematocrit 27.9 % Mean Corpuscular Volume 76.6 FL Mean Corpuscular Hemoglobin 24.2 PG Mean Corpuscular Hemoglobin 31.6 % Concent Red Cell Distribution Width 25.2 % Platelet Count 221 TH/MM3 Mean Platelet Volume 7.5 FL Neutrophils (%) (Auto) 87.9 % Lymphocytes (%) (Auto) 6.8 % Monocytes (%) (Auto) 4.8 % Eosinophils (%) (Auto) 0.1 % Basophils (%) (Auto) 0.4 % Neutrophils # (Auto) 17.8 TH/MM3 Lymphocytes # (Auto) 1.4 TH/MM3 Monocytes # (Auto) 1.0 TH/MM3 Eosinophils # (Auto) 0.0 TH/MM3 Basophils # (Auto) 0.1 TH/MM3 CBC Comment AUTO DIFF Differential Total Cells 100 Counted Neutrophils % (Manual) 70 % Band Neutrophils % 7 % Lymphocytes % 12 % Monocytes % 9 % Neutrophils # (Manual) 16.0 TH/MM3 Myelocytes 2 % Differential Comment FINAL DIFF MANUAL Platelet Estimate NORMAL Platelet Morphology Comment NORMAL Polychromasia 2.2 % Tear Drop Cells 1+ Ovalocytes 1+ Erythrocyte Sedimentation Rate 1 mm/hr Activated Partial 68.1 SEC Thromboplast Time Sodium Level 131 MEQ/L Potassium Level 3.8 MEQ/L Chloride Level 94 MEQ/L Carbon Dioxide Level 26.0 MEQ/L Anion Gap 11 MEQ/L Blood Urea Nitrogen 13 MG/DL Creatinine 0.99 MG/DL Estimat Glomerular Filtration 79 ML/MIN Rate Random Glucose 177 MG/DL Calcium Level 8.9 MG/DL Total Bilirubin 0.6 MG/DL Aspartate Amino Transf 21 U/L (AST/SGOT) Alanine Aminotransferase 58 U/L (ALT/SGPT) Alkaline Phosphatase 132 U/L Total Protein 5.9 GM/DL Albumin 3.1 GM/DL Culture Results Microbiology Date/Time Procedure Status Source Growth 09/18/16 12:35 Gram Stain - Final Resulted Fluid Other 09/18/16 12:35 Body Fluid Culture Resulted Fluid Other Pending 09/18/16 12:35 Fungal Smear - Final Resulted Fluid Other NO FUNGAL ELEMENTS SEEN. 09/18/16 12:35 Fungal Culture Resulted Fluid Other Pending Imaging Studies Last 24 hours Impressions Needle Aspiration Ultrasound 09/18/16 0000 Signed Impressions: Service Date/Time: Sunday, September 18, 2016 12:10 - CONCLUSION: Uncomplicated ultrasound guided aspiration. Elías Hull MD FACR Administered Medications Medications (Trade) Dose Ordered Sig/Gabi Route PRN Reason Start Time Stop Time Status Last Admin Dose Admin Atorvastatin Calcium (Lipitor) 20 mg HS PO 08/29/16 21:00 09/18/16 20:51 Budesonide/ Formoterol Fumarate (Symbicort 160-4.5 Inh) 2 puff Q12HR INH 08/29/16 21:00 09/18/16 20:52 Diltiazem HCl (Cardizem Cd) 360 mg DAILY PO 08/30/16 09:00 09/18/16 09:12 Fluconazole (Diflucan) 400 mg DAILY PO 08/30/16 09:00 09/18/16 09:11 Acetaminophen/ Hydrocodone Bitart ([place] 7.5-325 Mg) 1 tab TID PRN PO PAIN 08/29/16 18:30 09/18/16 13:46 Montelukast Sodium (Singulair) 10 mg HS PO 08/29/16 21:00 09/18/16 20:51 Pantoprazole Sodium (Protonix) 40 mg DAILY PO 08/30/16 09:00 09/18/16 09:10 Promethazine HCl/ Codeine (Phenergan-Codeine Liq) 5 ml Q4H PRN PO COUGH AND/OR COLD SYMPTOMS 08/29/16 18:30 09/18/16 16:39 Sucralfate (Carafate) 1 gm TID PO 08/30/16 09:00 09/18/16 18:11 IV Flush (NS Flush) 2 ml UNSCH PRN FLUSH FLUSH AFTER USING IV ACCESS 08/29/16 18:30 09/18/16 06:54 IV Flush (NS Flush) 2 ml BID FLUSH 08/29/16 21:00 09/18/16 20:52 Ondansetron HCl (Zofran Inj) 4 mg Q6H PRN IVP NAUSEA OR VOMITING 08/29/16 18:30 09/18/16 09:10 Lorazepam (Ativan) 0.5 mg BID PO 08/30/16 09:00 09/18/16 20:51 Clonidine (Catapres) 0.1 mg Q6H PRN PO SBP>160, DBP>90 09/02/16 23:45 09/09/16 05:21 IV Flush (NS Flush) See Protocol DAILY IVF 09/05/16 09:00 09/18/16 09:00 Heparin Sodium (Porcine) (Heparin Central Flush) See Protocol DAILY IVF 09/05/16 09:00 09/18/16 09:12 Cefuroxime Axetil (Ceftin) 500 mg Q12HR PO 09/06/16 09:00 09/18/16 20:50 Potassium Chloride (KCl) 10 meq Q12HR PO 09/06/16 21:00 09/18/16 20:51 Theophylline (Samuel-24) 400 mg DAILY PO 09/08/16 09:00 09/18/16 09:12 Promethazine HCl (Phenergan Inj) 12.5 mg Q8H PRN IM NAUESA 09/08/16 20:15 09/17/16 19:57 Prednisone 20 mg 20 mg BID PO 09/11/16 21:00 09/18/16 20:51 Heparin Sodium/ Dextrose (Heparin-D5W Inj) 250 ml @ 0 mls/hr TITRATE IV 09/13/16 06:45 09/19/16 00:00 09/18/16 09:14 Furosemide (Lasix) 20 mg DAILY PO 09/16/16 15:00 09/18/16 09:11 Tramadol HCl 100 mg 100 mg Q8H PRN PO pain 09/16/16 18:00 09/18/16 16:40 Micafungin Sodium/ Sodium Chloride (Mycamine Inj/NS Inj) 100 ml @ 100 mls/hr Q24H IV 09/18/16 00:00 09/18/16 00:00 Objective Remarks GENERAL: nad SKIN: Warm and dry. NECK: Supple, trachea midline. No JVD or lymphadenopathy. LYMPHATIC: No adenopathy. CARDIOVASCULAR: Regular rate and rhythm without murmurs. RESPIRATORY: Breath sounds equal bilaterally. No accessory muscle use. GASTROINTESTINAL: Abdomen soft, non-tender, nondistended. EXTREMITIES: right hip wound with dressing . Assessment/Plan Problem List: (1) Acute hypercapnic respiratory failure Status: Acute (2) Thrombocytopenia Status: Resolved (3) Superficial thrombophlebitis Status: Acute (4) Pulmonary embolism Status: Acute (5) Acute asthma exacerbation Status: Acute (6) Warfarin-induced coagulopathy Status: Acute (7) Septic hip Status: Acute (8) Abscess of hip, right Status: Acute Assessment 51-year-old male with a past medical history of recurrent asthma attacks with recurrent hospital admissions, hypertension, hyperlipidemia, history of pulmonary embolism and DVT and also right hip wound infection who was admitted to the hospital with shortness of breath and exacerbation of asthma. Hematology has been consulted to evaluate this patient who has been on Coumadin for DVT and pulmonary embolism and has been difficult to manage due labile INR. He on he has persistent suboptimal therapeutic levels. 1. Hx of Pulmonary embolism and DVT-- in the setting of a hospital admission in december 2015 2. Labile and difficult to manage INR while on Coumadin 3. Infected right hip wound. 4. Exacerbation of asthma. 5. GIB--resolved. colonoscopy was abandoned due to poor prep. GI signed off-- GIB likely due to hemorrhoids. H/H stable. Plan 1. Complex fluid in hip . plans for drainage 2. Heparin GTT-- coumadin on hold 3. discussed with patient regarding discharging home with Lovenox injections for the near short term outpatient since Coumadin management is difficult in this patient. Will discuss with Dr. Woodward Problem Qualifiers (1) Acute asthma exacerbation: Qualified Code: J45.51 - Severe persistent asthma with acute exacerbation Reuben Cali MD Sep 18, 2016 23:36
[2016-09-18] MEDS: MICAFUNGIN INJ 150 MG in SODIUM CHLORIDE 0.9% INJ 100 ML IV SCH ×3 (23:43)
[2016-09-19] VITALS (9 sets, daily range): BP systolic 119–144; BP diastolic 78–89; PULSE 100–117; RESP 18–24; TEMP 97.3–98.8; O2SAT 94–99
[2016-09-19 00:13] LABS: INTERNATIONAL NORMALIZED RATIO 1.3 RATIO; PROTHROMBIN TIME - PATIENT 14.2 SEC (9.8-11.6)
[2016-09-19] MEDS: INSULIN ASPART SUPPLEMENTAL SCALE SQ SCH ×4 (05:41→21:37)
[2016-09-19 06:07] LABS: AUTOMATED NEUTROPHIL # 11.5 TH/MM3 (1.8-7.7); BASOPHIL % 0.3 % (0.0-2.0); EOSINOPHIL % 0.2 % (0.0-4.0); LYMPH % 14.7 % (9.0-44.0); LYMPHOCYTE # 2.1 TH/MM3 (1.0-4.8); MEAN CELL VOLUME 76.9 FL (80.0-100.0); MEAN CORPUSCULAR HEMOGLOBIN 24.6 PG (27.0-34.0); MEAN CORPUSCULAR HGB CONC 31.9 % (32.0-36.0); MONO % 4.3 % (0.0-8.0); NEUT % 80.5 % (16.0-70.0); PLATELET COUNT 191 TH/MM3 (150-450); RED BLOOD COUNT 3.25 MIL/MM3 (4.50-5.90); RED CELL DISTRIBUTION WIDTH 25.5 % (11.6-17.2); WHITE BLOOD COUNT 14.2 TH/MM3 (4.0-11.0)
[2016-09-19 06:16] LABS: HEMO FLAGS AUTO DIFF
[2016-09-19 06:31] LABS: ALT (GPT) 52 U/L (12-78); ANION GAP 7 MEQ/L (5-15); AST (GOT) 23 U/L (15-37); BICARBONATE 30.4 MEQ/L (21.0-32.0); BLOOD UREA NITROGEN 13 MG/DL (7-18); CHLORIDE 96 MEQ/L (98-107); GLOMERULAR FILTRATION RATE 83 ML/MIN (>89); SODIUM (NA) 133 MEQ/L (136-145)
[2016-09-19] MEDS: RESP: ALBUTEROL 2.5 MG/3 ML NEB (PRN) NEB (06:31)
[2016-09-19 06:33] LABS: ALKALINE PHOSPHATASE 117 U/L (45-117); TOTAL BILIRUBIN ADULT 0.5 MG/DL (0.2-1.0)
[2016-09-19 08:05] LABS: BANDS 13 % (0-6); BASOPHILS 1 % (0-2); CORRECTED NUCLEATED RBC 12 /100 WBC (0-0); METAMYELOCYTES 3 % (0-1); MYELOCYTES 3 % (0-0); NEUTROPHIL # MANUAL DIFF 12.6 TH/MM3 (1.8-7.7); POLYS (SEG NEUTROPHILS) 70 % (16-70); WBC DIFF SAMPLE 100
[2016-09-19 08:06] LABS: KERATOCYTES OCC (NORMAL); OVALOCYTES 1+ (NORMAL); POLYCHROMASIA 2.1 % (0.0-1.9)
[2016-09-19 08:07] LABS: ACANTHOCYTES OCC (NORMAL)
[2016-09-19 08:08] LABS: PLATELET ESTIMATE SMEAR NORMAL (NORMAL); PLATELET MORPHOLOGY NORMAL (NORMAL); SCAN/DIFF FINAL DIFF MANUAL
[2016-09-19] MEDS: LORazepam 0.5 MG TAB PO SCH ×2 (08:10→21:36)
[2016-09-19] MEDS: FUROSEMIDE 20 MG TAB PO SCH (08:10)
[2016-09-19] MEDS: FLUCONAZOLE 200 MG TAB PO SCH (08:10)
[2016-09-19] MEDS: DILTIAZEM-CD 180 MG CAP ER PO SCH (08:10)
[2016-09-19] MEDS: CEFUROXIME AXETIL 500 MG TAB PO SCH ×2 (08:10→21:36)
[2016-09-19] MEDS: PANTOPRAZOLE SOD 40 MG DELAYED RELEASE TAB PO SCH (08:10)
[2016-09-19] MEDS: POTASSIUM CHLORIDE 10 MEQ CONTROLLED RELEASE TAB PO SCH ×2 (08:11→21:36)
[2016-09-19] MEDS: SUCRALFATE 1 GM TAB PO SCH ×3 (08:11→16:59)
[2016-09-19] MEDS: predniSONE 20 MG TAB PO SCH (08:11)
[2016-09-19] MEDS: THEOPHYLLINE 200 MG EXTENDED RELEASE CAP PO SCH (08:11)
[2016-09-19] MEDS: ACETAMINOPHEN/HYDROcodone 325 MG/7.5 MG TAB PO PRN ×3 (08:12→18:27)
[2016-09-19] MEDS: SODIUM CHLORIDE 0.9% FLUSH 5 ML FLUSH FLUSH SCH ×2 (08:15→20:16)
[2016-09-19] MEDS: BUDESONIDE-FORMOTEROL 160/4.5 MCG INHALER INH SCH ×2 (08:15→21:00)
--- NOTE | 2016-09-19 10:00 | HHI.PR ---
Subjective History of Present Illness Patient feeling weak and tired still wheezing on oral Prednisone bronchodialtors c/o right hip pain s/p CT Scan of Pelvis shows large collection of fluid orthopedic managing. d/w Orthopedic S/P US Guided drainage of hematoma. have extremity edema better on Lasix 20 mg PO daily...on heparin gtt. holding coumadin. high WBC count on steroids will monitor. Review of Systems Constitutional Constitutional: Fatigue, Weakness Pulmonary Respiratory: Coughing, Shortness of Breath, Wheezing Cardiology CV Remarks extremity edema. Musculoskeletal MS: Swelling MS Remarks extremity edema better. Allergic/Immunologic Allergic/Immunologic: Asthma Vitals/Results Intake & Output 09/18/16 09/18/16 09/19/16 15:00 23:00 07:00 Intake Total 480 ml 480 ml Output Total 1300 ml Balance 480 ml -820 ml Intake Oral 480 ml 480 ml Output Urine Total 1300 ml # Voids 1 # Bowel Movements 0 0 Vital Signs Vital Signs Date Time Temp Pulse Resp B/P Pulse Ox O2 Delivery O2 Flow Rate FiO2 09/19/16 08:32 Nasal Cannula 2.00 09/19/16 08:00 97.5 107 20 136/89 98 09/19/16 07:55 98 Nasal Cannula 2.00 09/19/16 06:33 98 Nasal Cannula 2.00 09/19/16 04:00 97.5 108 20 119/78 97 09/19/16 00:00 97.3 114 18 128/88 99 09/18/16 20:16 98 Nasal Cannula 2.00 09/18/16 20:00 113 09/18/16 20:00 97.0 116 18 132/86 96 09/18/16 20:00 Nasal Cannula 2.00 09/18/16 16:00 97.2 100 16 127/85 97 09/18/16 13:52 98 Nasal Cannula 2.00 09/18/16 13:08 97.3 98 14 137/85 100 09/18/16 12:49 97.6 105 14 135/82 98 09/18/16 12:05 98.1 109 16 140/93 98 09/18/16 12:00 98.1 99 16 138/85 98 CBC/BMP: 09/19/16 0536 09/19/16 0536 Lab Results Laboratory Tests Test 09/18/16 09/18/16 09/19/16 23:40 23:45 05:36 Prothrombin Time 14.2 SEC Prothromb Time International 1.3 RATIO Ratio C-Reactive Protein 2.00 MG/DL Blood Type O POSITIVE Antibody Screen NEGATIVE Crossmatch Leukocyte-Reduced Red Blood Cells Blood Bank Comment White Blood Count 14.2 TH/MM3 Red Blood Count 3.25 MIL/MM3 Hemoglobin 8.0 GM/DL Hematocrit 25.0 % Mean Corpuscular Volume 76.9 FL Mean Corpuscular Hemoglobin 24.6 PG Mean Corpuscular Hemoglobin 31.9 % Concent Red Cell Distribution Width 25.5 % Platelet Count 191 TH/MM3 Mean Platelet Volume 7.1 FL Neutrophils (%) (Auto) 80.5 % Lymphocytes (%) (Auto) 14.7 % Monocytes (%) (Auto) 4.3 % Eosinophils (%) (Auto) 0.2 % Basophils (%) (Auto) 0.3 % Neutrophils # (Auto) 11.5 TH/MM3 Lymphocytes # (Auto) 2.1 TH/MM3 Monocytes # (Auto) 0.6 TH/MM3 Eosinophils # (Auto) 0.0 TH/MM3 Basophils # (Auto) 0.0 TH/MM3 CBC Comment AUTO DIFF Differential Total Cells 100 Counted Neutrophils % (Manual) 70 % Band Neutrophils % 13 % Lymphocytes % 7 % Monocytes % 3 % Basophils % 1 % Neutrophils # (Manual) 12.6 TH/MM3 Metamyelocytes 3 % Myelocytes 3 % Nucleated Red Blood Cells 12 /100 WBC Differential Comment FINAL DIFF MANUAL Platelet Estimate NORMAL Platelet Morphology Comment NORMAL Polychromasia 2.1 % Ovalocytes 1+ Acanthocytes OCC Keratocytes OCC Sodium Level 133 MEQ/L Potassium Level 4.0 MEQ/L Chloride Level 96 MEQ/L Carbon Dioxide Level 30.4 MEQ/L Anion Gap 7 MEQ/L Blood Urea Nitrogen 13 MG/DL Creatinine 0.95 MG/DL Estimat Glomerular Filtration 83 ML/MIN Rate Random Glucose 196 MG/DL Calcium Level 9.1 MG/DL Total Bilirubin 0.5 MG/DL Aspartate Amino Transf 23 U/L (AST/SGOT) Alanine Aminotransferase 52 U/L (ALT/SGPT) Alkaline Phosphatase 117 U/L Total Protein 5.6 GM/DL Albumin 2.9 GM/DL Microbiology Microbiology 09/18/16 Gram Stain - Final, Resulted 09/18/16 Body Fluid Culture, Resulted Pending 09/18/16 Fungal Smear - Final, Resulted NO FUNGAL ELEMENTS SEEN. 09/18/16 Fungal Culture, Resulted Pending Physical Exam General General Appearance: Well Developed, Well Nourished, No Acute Distress, Comfortable, Anxious Eyes Eye Exam: Pupils Equal, Sclera White, Extraocular Movement Intact Ears & Nose Ears & Nose Exam: Nasal Mucosa [place] Throat Throat Exam: Oral Mucosa [place] & Moist, Oral Pharynx Normal Neck Neck Exam: Neck Supple, Trachea Midline Pulmonary Resp Exam: Breath Sounds Equal, No Distress, Rhonchi Resp Remarks bilateral wheezing. Cardiology CV Exam: Regular, Normal Sinus Rhythm Gastrointestinal/Abdomen GI Exam: Soft, Non-Tender, Bowel Sounds Present Musculoskeletal MS Exam: Normal Tone Integumentary Skin Exam: Warm, Dry Skin Remarks right hip wound. Extremeties Extremities Exam: No Edema, Pedal Pulses Palpable, Moderate Edema, Pitting Edema Extremeties Remarks tenderness right hip. Neurologic Neuro Exam: Alert, Awake, Oriented, Speech Clear, Moving All Extremities Psychiatric Psych Exam: Appropriate Responses PUD Prophylasis PUD Prophylaxis: Protonix Assessment/Plan Assessment/Plan Assessment and Plan 1. Acute asthma/ COPD exacerbation with respiratory failure/insufficiency on admission...on bronchodilator Prednisone. and Antibiotic oral. 2. Coumadin toxicity...resolved.. on Heparin gtt. holding coumadin. going to OR Tomorrow. 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 4. Tachycardia. 5. Hypertension. 6. History of depression and anxiety. 7. History of DVT and PE. Patient have episode of bleeding from rectum and nose with xarelto d/w hematology Dr Reuben Cali discontinued Xarelto. on heparin gtt..+ holding coumadin. 8. Arthritis. 9. History of hyperlipidemia. 10. Gastroesophageal reflux disease (GERD). 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 Sever right hip pain s/p CT Scan of Pelvis shows large collection of fluid orthopedic managing. d/w Orthopedic S/P US Guided drainage of hematoma. 13. High WBC count on steroids will monitor. PLAN: Lasix 40 mg PO Daily. Continue oxygen , keep saturation above 92%. PO steroid Aerosol treatment qid & q2 hrs prn continue with Symbicort twice daily Continue Singulair On Theophylline Antitussives when necessary Continue with Xanax dose 0.5 q 8 hr On PO Ceftin BID. On Diflucan..ID Input noted. Analgesics Wound care on heparin gtt. cont Cardizem Proton pump inhibitor for GI prophylaxis. S/P COLONOSCOPY..POOR PREP. d/w PT Will follow Check CBC with diff CMP PT/INR in AM. Discussed Condition with: Patient Myron Woodward MD Sep 19, 2016 10:00
[2016-09-19 12:28] LABS: INTERNATIONAL NORMALIZED RATIO 1.2 RATIO; PROTHROMBIN TIME - PATIENT 13.3 SEC (9.8-11.6)
--- NOTE | 2016-09-19 15:38 | PD.ORT.PN ---
Subjective Pain Scale: 6 Subjective Remarks Hip better than yesterday. Distance Walked Walking in room with PT Encouraged to have PT walk him in hallway with oxygen Objective Vitals Vital Signs Date Time Temp Pulse Resp B/P Pulse Ox O2 Delivery O2 Flow Rate FiO2 09/19/16 12:00 98.1 108 20 132/88 97 09/19/16 10:30 106 09/19/16 08:32 Nasal Cannula 2.00 09/19/16 08:00 97.5 107 20 136/89 98 09/19/16 07:55 98 Nasal Cannula 2.00 09/19/16 06:33 98 Nasal Cannula 2.00 09/19/16 04:00 97.5 108 20 119/78 97 09/19/16 00:00 97.3 114 18 128/88 99 09/18/16 20:16 98 Nasal Cannula 2.00 09/18/16 20:00 113 09/18/16 20:00 97.0 116 18 132/86 96 09/18/16 20:00 Nasal Cannula 2.00 09/18/16 16:00 97.2 100 16 127/85 97 I/O 09/18/16 09/18/16 09/18/16 09/19/16 09/19/16 09/19/16 07:00 15:00 23:00 07:00 15:00 23:00 Intake Total 664 ml 480 ml 480 ml Output Total 1150 ml 1300 ml Balance -486 ml 480 ml -820 ml Intake Oral 240 ml 480 ml 480 ml IV Total 424 ml Output Urine Total 1150 ml 1300 ml # Voids 1 # Bowel Movements 0 0 Result Diagram: 09/19/16 0536 09/19/16 0536 Other Results Microbiology Date/Time Procedure Status Source Growth 09/18/16 12:35 Gram Stain - Final Resulted Fluid Other 09/18/16 12:35 Body Fluid Culture - Preliminary Resulted Fluid Other NO GROWTH IN 24 HOURS. 09/18/16 12:35 Fungal Smear - Final Resulted Fluid Other NO FUNGAL ELEMENTS SEEN. 09/18/16 12:35 Fungal Culture Resulted Fluid Other Pending Laboratory Tests Test 09/18/16 09/19/16 23:40 12:08 Prothrombin Time 14.2 SEC 13.3 SEC (9.8-11.6) (9.8-11.6) Prothromb Time International 1.3 RATIO 1.2 RATIO Ratio Imaging Last 48 hours Impressions Needle Aspiration Ultrasound 09/18/16 0000 Signed Impressions: Service Date/Time: Sunday, September 18, 2016 12:10 - CONCLUSION: Uncomplicated ultrasound guided aspiration. Elías Hull MD FACR Objective Remarks A,A, and O In recliner. Turns around, twisting etc without pain. Right hip looks exactly same as it casi Friday pm No drainage , some induration., dressing from aspiration removed. Assessment & Plan Assessment and Plan Right hip stable and improving Radiologist on aspiration felt it was most likely hematoma Sed rate 1, therefore surgery cancelled CRP 2 (elevated) Micro fluid negative so far Impression : Patient probably was admitted with hematoma right hip aug 29. He has had very high INRs on and off. Clinically his hip is responding very well to macrofungin and diflucan Nursing did not resume heparin yesterday, RN instructed by me today to do so. will continue antifungals, and keep c;lose eye on patient. He needs to be mobilized and discharged. Shaan Lindo MD Sep 19, 2016 15:38
[2016-09-19] MEDS: PROMETHAZINE INJ 25 MG/ML VIAL IM PRN (20:10)
[2016-09-19] MEDS: ONDANSETRON HCL 4 MG/2 ML VIAL IVP PRN (21:35)
[2016-09-19] MEDS: MONTELUKAST SODIUM 10 MG TAB PO SCH (21:35)
[2016-09-19] MEDS: ATORVASTATIN 20 MG TAB PO SCH (21:36)
[2016-09-19] MEDS: predniSONE 10 MG TAB PO SCH (21:36)
[2016-09-19] MEDS: traMADol HCL 50 MG TAB PO PRN (21:37)
--- NOTE | 2016-09-19 23:00 | HHI.IDPN ---
Subjective Subjective Remarks fDelayed entry - pt was seen today around 5 pm co R hip pain breathin g improved - afebrile WBC lisbeth down significantly Recent CT of R hip showed large fluid collection which was aspirated and looks sterile so far Antibiotics cefuroxime started 09/06 Micafungin Fluconazol Allergies: Coded Allergies: Tetracycline (Verified Allergy, Severe, throat swells, 08/29/16) Demerol (Verified Allergy, Intermediate, hallucinations, 08/29/16) Objective . Vital Signs Date Time Temp Pulse Resp B/P Pulse Ox O2 Delivery O2 Flow Rate FiO2 09/19/16 20:00 98.8 100 24 121/89 94 09/19/16 16:00 98.1 117 18 144/88 98 09/19/16 12:00 98.1 108 20 132/88 97 09/19/16 10:30 106 09/19/16 08:32 Nasal Cannula 2.00 09/19/16 08:00 97.5 107 20 136/89 98 09/19/16 07:55 98 Nasal Cannula 2.00 09/19/16 06:33 98 Nasal Cannula 2.00 09/19/16 04:00 97.5 108 20 119/78 97 09/19/16 00:00 97.3 114 18 128/88 99 09/18/16 09/18/16 09/19/16 15:00 23:00 07:00 Intake Total 480 ml 480 ml Output Total 1300 ml Balance 480 ml -820 ml Intake Oral 480 ml 480 ml Output Urine Total 1300 ml # Voids 1 # Bowel Movements 0 0 . Laboratory Tests Test 09/18/16 09/19/16 06:30 05:36 White Blood Count 20.3 TH/MM3 14.2 TH/MM3 Red Blood Count 3.65 MIL/MM3 3.25 MIL/MM3 Hemoglobin 8.8 GM/DL 8.0 GM/DL Hematocrit 27.9 % 25.0 % Mean Corpuscular Volume 76.6 FL 76.9 FL Mean Corpuscular Hemoglobin 24.2 PG 24.6 PG Mean Corpuscular Hemoglobin 31.6 % 31.9 % Concent Red Cell Distribution Width 25.2 % 25.5 % Platelet Count 221 TH/MM3 191 TH/MM3 Mean Platelet Volume 7.5 FL 7.1 FL Neutrophils (%) (Auto) 87.9 % 80.5 % Lymphocytes (%) (Auto) 6.8 % 14.7 % Monocytes (%) (Auto) 4.8 % 4.3 % Eosinophils (%) (Auto) 0.1 % 0.2 % Basophils (%) (Auto) 0.4 % 0.3 % Neutrophils # (Auto) 17.8 TH/MM3 11.5 TH/MM3 Lymphocytes # (Auto) 1.4 TH/MM3 2.1 TH/MM3 Monocytes # (Auto) 1.0 TH/MM3 0.6 TH/MM3 Eosinophils # (Auto) 0.0 TH/MM3 0.0 TH/MM3 Basophils # (Auto) 0.1 TH/MM3 0.0 TH/MM3 CBC Comment AUTO DIFF AUTO DIFF Differential Total Cells 100 100 Counted Neutrophils % (Manual) 70 % 70 % Band Neutrophils % 7 % 13 % Lymphocytes % 12 % 7 % Monocytes % 9 % 3 % Neutrophils # (Manual) 16.0 TH/MM3 12.6 TH/MM3 Myelocytes 2 % 3 % Differential Comment FINAL DIFF FINAL DIFF MANUAL MANUAL Platelet Estimate NORMAL NORMAL Platelet Morphology Comment NORMAL NORMAL Polychromasia 2.2 % 2.1 % Tear Drop Cells 1+ Ovalocytes 1+ 1+ Erythrocyte Sedimentation Rate 1 mm/hr Basophils % 1 % Metamyelocytes 3 % Nucleated Red Blood Cells 12 /100 WBC Acanthocytes OCC Keratocytes OCC Laboratory Tests Test 09/18/16 09/18/16 09/19/16 09:08 23:45 05:36 Sodium Level 131 MEQ/L 133 MEQ/L Potassium Level 3.8 MEQ/L 4.0 MEQ/L Chloride Level 94 MEQ/L 96 MEQ/L Carbon Dioxide Level 26.0 MEQ/L 30.4 MEQ/L Anion Gap 11 MEQ/L 7 MEQ/L Blood Urea Nitrogen 13 MG/DL 13 MG/DL Creatinine 0.99 MG/DL 0.95 MG/DL Estimat Glomerular Filtration 79 ML/MIN 83 ML/MIN Rate Random Glucose 177 MG/DL 196 MG/DL Calcium Level 8.9 MG/DL 9.1 MG/DL Total Bilirubin 0.6 MG/DL 0.5 MG/DL Aspartate Amino Transf 21 U/L 23 U/L (AST/SGOT) Alanine Aminotransferase 58 U/L 52 U/L (ALT/SGPT) Alkaline Phosphatase 132 U/L 117 U/L Total Protein 5.9 GM/DL 5.6 GM/DL Albumin 3.1 GM/DL 2.9 GM/DL C-Reactive Protein 2.00 MG/DL Microbiology Date/Time Procedure Status Source Growth 09/18/16 12:35 Gram Stain - Final Resulted Fluid Other 09/18/16 12:35 Body Fluid Culture - Preliminary Resulted Fluid Other NO GROWTH IN 24 HOURS. 09/18/16 12:35 Fungal Smear - Final Resulted Fluid Other NO FUNGAL ELEMENTS SEEN. 09/18/16 12:35 Fungal Culture Resulted Fluid Other Pending Imaging Last Impressions Needle Aspiration Ultrasound 09/18/16 0000 Signed Impressions: Service Date/Time: Sunday, September 18, 2016 12:10 - CONCLUSION: Uncomplicated ultrasound guided aspiration. Elías Hull MD FACR Pelvis CT 09/17/16 0000 Signed Impressions: Service Date/Time: Saturday, September 17, 2016 10:53 - CONCLUSION: Large complex fluid collection adjacent to the right femoral prosthesis with layering high density material identified dependently. Valentina Hollis MD Chest X-Ray 09/06/16 0600 Signed Impressions: Service Date/Time: Tuesday, September 06, 2016 05:15 - CONCLUSION: No acute disease. Davion Carranza MD Hip X-Ray 09/03/16 0000 Signed Impressions: Service Date/Time: Saturday, September 03, 2016 11:41 - CONCLUSION: 1. No acute fracture or joint dislocation. 2. Right hip prosthesis appears to be grossly intact. Tyler Mast MD CT Angiography 08/29/16 1609 Signed Impressions: Service Date/Time: August 16:50 - CONCLUSION: No evidence of pulmonary embolism. Minimal bibasilar atelectasis. Cardiomegaly and coronary artery calcifications. Samuel King MD Physical Exam CONSTITUTIONAL/GENERAL: This is an obese patient, in no apparent distress. SKIN: No jaundice, rashes, or lesions. Skin temperature appropriate. Not diaphoretic. EYES: Pupils equal and round and reactive. Extraocular motions intact. No scleral icterus. No injection or drainage. Fundi not examined. ENT: Oral mucosae without visible erythema, exudates, masses, or lesions. CARDIOVASCULAR: Regular rate and rhythm without murmurs, gallops, or rubs. No JVD. Peripheral pulses symmetric. RESPIRATORY/CHEST: Symmetric, unlabored respirations. minimal wheezing to auscultation. Breath sounds remain decreased GASTROINTESTINAL: Abdomen soft, globular non-tender, nondistended. No hepato- splenomegaly, or palpable masses. MUSCULOSKELETAL: Extremities without clubbing, cyanosis, or edema. Incision over R hip healed healed, no drainage extensive ecchymoses and induration around incision mostly cw hematoma Decreased ROM 2/2 pain NEUROLOGICAL: Awake and alert. Motor and sensory grossly within normal limits. Follows commands. Cognitively sharp. Moves all extremities. 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 medx contributing leukocytosis - imroved - cont fluconazol - cont micafungin - fu clinically - monitor LFTs - monitor fluid collection clx untill final - surgery in case of + fluid clx Dw Dr Kayla Morris,Marizol Mariscal MD Sep 19, 2016 23:00
--- NOTE | 2016-09-19 23:14 | PD.ONC.PN ---
Subjective Subjective Remarks seen earlier in the day no bleeding on anti-fungals. on heparin gtt Objective Data Date Time Temp Pulse Resp B/P Pulse Ox O2 Delivery O2 Flow Rate FiO2 09/19/16 20:00 98.8 100 24 121/89 94 09/19/16 16:00 98.1 117 18 144/88 98 09/19/16 12:00 98.1 108 20 132/88 97 09/19/16 10:30 106 09/19/16 08:32 Nasal Cannula 2.00 09/19/16 08:00 97.5 107 20 136/89 98 09/19/16 07:55 98 Nasal Cannula 2.00 09/19/16 06:33 98 Nasal Cannula 2.00 09/19/16 04:00 97.5 108 20 119/78 97 09/19/16 00:00 97.3 114 18 128/88 99 09/19/16 09/19/16 09/19/16 07:00 15:00 23:00 Intake Total 480 ml Output Total 1300 ml Balance -820 ml Result Diagram: 09/19/16 0536 09/19/1636 Laboratory Results Laboratory Tests Test 09/18/16 09/18/16 09/19/16 09/19/16 23:40 23:45 05:36 12:08 Prothrombin Time 14.2 SEC 13.3 SEC Prothromb Time International 1.3 RATIO 1.2 RATIO Ratio C-Reactive Protein 2.00 MG/DL Blood Type O POSITIVE Antibody Screen NEGATIVE Crossmatch Leukocyte-Reduced Red Blood Cells Blood Bank Comment White Blood Count 14.2 TH/MM3 Red Blood Count 3.25 MIL/MM3 Hemoglobin 8.0 GM/DL Hematocrit 25.0 % Mean Corpuscular Volume 76.9 FL Mean Corpuscular Hemoglobin 24.6 PG Mean Corpuscular Hemoglobin 31.9 % Concent Red Cell Distribution Width 25.5 % Platelet Count 191 TH/MM3 Mean Platelet Volume 7.1 FL Neutrophils (%) (Auto) 80.5 % Lymphocytes (%) (Auto) 14.7 % Monocytes (%) (Auto) 4.3 % Eosinophils (%) (Auto) 0.2 % Basophils (%) (Auto) 0.3 % Neutrophils # (Auto) 11.5 TH/MM3 Lymphocytes # (Auto) 2.1 TH/MM3 Monocytes # (Auto) 0.6 TH/MM3 Eosinophils # (Auto) 0.0 TH/MM3 Basophils # (Auto) 0.0 TH/MM3 CBC Comment AUTO DIFF Differential Total Cells 100 Counted Neutrophils % (Manual) 70 % Band Neutrophils % 13 % Lymphocytes % 7 % Monocytes % 3 % Basophils % 1 % Neutrophils # (Manual) 12.6 TH/MM3 Metamyelocytes 3 % Myelocytes 3 % Nucleated Red Blood Cells 12 /100 WBC Differential Comment FINAL DIFF MANUAL Platelet Estimate NORMAL Platelet Morphology Comment NORMAL Polychromasia 2.1 % Ovalocytes 1+ Acanthocytes OCC Keratocytes OCC Sodium Level 133 MEQ/L Potassium Level 4.0 MEQ/L Chloride Level 96 MEQ/L Carbon Dioxide Level 30.4 MEQ/L Anion Gap 7 MEQ/L Blood Urea Nitrogen 13 MG/DL Creatinine 0.95 MG/DL Estimat Glomerular Filtration 83 ML/MIN Rate Random Glucose 196 MG/DL Calcium Level 9.1 MG/DL Total Bilirubin 0.5 MG/DL Aspartate Amino Transf 23 U/L (AST/SGOT) Alanine Aminotransferase 52 U/L (ALT/SGPT) Alkaline Phosphatase 117 U/L Total Protein 5.6 GM/DL Albumin 2.9 GM/DL Culture Results Microbiology Date/Time Procedure Status Source Growth 09/18/16 12:35 Gram Stain - Final Resulted Fluid Other 09/18/16 12:35 Body Fluid Culture - Preliminary Resulted Fluid Other NO GROWTH IN 24 HOURS. 09/18/16 12:35 Fungal Smear - Final Resulted Fluid Other NO FUNGAL ELEMENTS SEEN. 09/18/16 12:35 Fungal Culture Resulted Fluid Other Pending Administered Medications Medications (Trade) Dose Ordered Sig/Gabi Route PRN Reason Start Time Stop Time Status Last Admin Dose Admin Atorvastatin Calcium (Lipitor) 20 mg HS PO 08/29/16 21:00 09/19/16 21:36 Budesonide/ Formoterol Fumarate (Symbicort 160-4.5 Inh) 2 puff Q12HR INH 08/29/16 21:00 09/19/16 21:00 Diltiazem HCl (Cardizem Cd) 360 mg DAILY PO 08/30/16 09:00 09/19/16 08:10 Fluconazole (Diflucan) 400 mg DAILY PO 08/30/16 09:00 09/19/16 08:10 Montelukast Sodium (Singulair) 10 mg HS PO 08/29/16 21:00 09/19/16 21:35 Pantoprazole Sodium (Protonix) 40 mg DAILY PO 08/30/16 09:00 09/19/16 08:10 Promethazine HCl/ Codeine (Phenergan-Codeine Liq) 5 ml Q4H PRN PO COUGH AND/OR COLD SYMPTOMS 08/29/16 18:30 09/18/16 16:39 Sucralfate (Carafate) 1 gm TID PO 08/30/16 09:00 09/19/16 16:59 IV Flush (NS Flush) 2 ml UNSCH PRN FLUSH FLUSH AFTER USING IV ACCESS 08/29/16 18:30 09/18/16 06:54 IV Flush (NS Flush) 2 ml BID FLUSH 08/29/16 21:00 09/19/16 08:15 Ondansetron HCl (Zofran Inj) 4 mg Q6H PRN IVP NAUSEA OR VOMITING 08/29/16 18:30 09/19/16 21:35 Lorazepam (Ativan) 0.5 mg BID PO 08/30/16 09:00 09/19/16 21:36 Clonidine (Catapres) 0.1 mg Q6H PRN PO SBP>160, DBP>90 09/02/16 23:45 09/09/16 05:21 IV Flush (NS Flush) See Protocol DAILY IVF 09/05/16 09:00 09/19/16 09:00 Heparin Sodium (Porcine) (Heparin Central Flush) See Protocol DAILY IVF 09/05/16 09:00 09/19/16 08:14 Cefuroxime Axetil (Ceftin) 500 mg Q12HR PO 09/06/16 09:00 09/19/16 21:36 Potassium Chloride (KCl) 10 meq Q12HR PO 09/06/16 21:00 09/19/16 21:36 Theophylline (Samuel-24) 400 mg DAILY PO 09/08/16 09:00 09/19/16 08:11 Promethazine HCl (Phenergan Inj) 12.5 mg Q8H PRN IM NAUESA 09/08/16 20:15 09/19/16 20:10 Furosemide (Lasix) 20 mg DAILY PO 09/16/16 15:00 09/19/16 08:10 Tramadol HCl 100 mg 100 mg Q8H PRN PO pain 09/16/16 18:00 09/19/16 21:37 Micafungin Sodium/ Sodium Chloride (Mycamine Inj/NS Inj) 100 ml @ 100 mls/hr Q24H IV 09/18/16 00:00 09/18/16 23:43 Prednisone (Deltasone) 10 mg BID PO 09/19/16 21:00 09/19/16 21:36 Objective Remarks GENERAL: chronically ill SKIN: Warm and dry. NECK: Supple, trachea midline. No JVD or lymphadenopathy. LYMPHATIC: No adenopathy. CARDIOVASCULAR: Regular rate and rhythm without murmurs. RESPIRATORY: Breath sounds equal bilaterally. No accessory muscle use. GASTROINTESTINAL: Abdomen soft, non-tender, nondistended. EXTREMITIES: No cyanosis, or edema. MUSCULOSKELETAL: Adequate muscle tone. hip wound Assessment/Plan Problem List: (1) Acute hypercapnic respiratory failure Status: Acute (2) Thrombocytopenia Status: Resolved (3) Superficial thrombophlebitis Status: Acute (4) Pulmonary embolism Status: Acute (5) Acute asthma exacerbation Status: Acute (6) Warfarin-induced coagulopathy Status: Acute (7) Septic hip Status: Acute (8) Abscess of hip, right Status: Acute Assessment 51-year-old male with a past medical history of recurrent asthma attacks with recurrent hospital admissions, hypertension, hyperlipidemia, history of pulmonary embolism and DVT and also right hip wound infection who was admitted to the hospital with shortness of breath and exacerbation of asthma. Hematology has been consulted to evaluate this patient who has been on Coumadin for DVT and pulmonary embolism and has been difficult to manage due labile INR. He on he has persistent suboptimal therapeutic levels. 1. Hx of Pulmonary embolism and DVT-- in the setting of a hospital admission in december 2015 2. Labile and difficult to manage INR while on Coumadin 3. Infected right hip wound. 4. Exacerbation of asthma. 5. GIB--resolved. colonoscopy was abandoned due to poor prep. GI signed off-- GIB likely due to hemorrhoids. H/H stable. Plan 1. Complex fluid in hip . s/p drainage 2. Heparin GTT-- coumadin on hold 3. discussed with patient regarding discharging home with Lovenox injections for the near short term outpatient since Coumadin management is difficult in this patient. Will discuss with Dr. Woodward Patient seen and evaluated. no new recs. continue heparin Problem Qualifiers (1) Acute asthma exacerbation: Qualified Code: J45.51 - Severe persistent asthma with acute exacerbation Reuben Cali MD Sep 19, 2016 23:13
[2016-09-19] MEDS: cloNIDine HCL 0.1 MG TAB PO PRN (23:58)
[2016-09-19] MEDS: MICAFUNGIN INJ 150 MG in SODIUM CHLORIDE 0.9% INJ 100 ML IV SCH (23:58)
[2016-09-20] VITALS (10 sets, daily range): BP systolic 119–156; BP diastolic 69–95; PULSE 100–150; RESP 18–28; TEMP 96.4–98.1; O2SAT 95–99
[2016-09-20 06:06] LABS: BASOPHIL # 0.1 TH/MM3 (0-0.2); BASOPHIL % 0.5 % (0.0-2.0); EOSINOPHIL % 0.3 % (0.0-4.0); HEMATOCRIT 25.6 % (39.0-51.0); LYMPH % 14.6 % (9.0-44.0); LYMPHOCYTE # 1.7 TH/MM3 (1.0-4.8); MEAN CELL VOLUME 76.8 FL (80.0-100.0); MEAN CORPUSCULAR HEMOGLOBIN 24.5 PG (27.0-34.0); MEAN CORPUSCULAR HGB CONC 31.9 % (32.0-36.0); NEUT % 79.6 % (16.0-70.0); PLATELET COUNT 209 TH/MM3 (150-450); RED BLOOD COUNT 3.34 MIL/MM3 (4.50-5.90); RED CELL DISTRIBUTION WIDTH 26.1 % (11.6-17.2); WHITE BLOOD COUNT 11.3 TH/MM3 (4.0-11.0)
[2016-09-20 06:15] LABS: APTT (PATIENT) 53.9 SEC (24.3-30.1)
[2016-09-20 06:26] LABS: ALKALINE PHOSPHATASE 129 U/L (45-117); ALT (GPT) 51 U/L (12-78); ANION GAP 8 MEQ/L (5-15); AST (GOT) 23 U/L (15-37); BICARBONATE 30.7 MEQ/L (21.0-32.0); BLOOD UREA NITROGEN 11 MG/DL (7-18); CHLORIDE 95 MEQ/L (98-107); GLOMERULAR FILTRATION RATE 87 ML/MIN (>89); POTASSIUM 3.9 MEQ/L (3.5-5.1); SODIUM (NA) 134 MEQ/L (136-145); TOTAL BILIRUBIN ADULT 0.6 MG/DL (0.2-1.0)
[2016-09-20 06:28] LABS: HEMO FLAGS AUTO DIFF
[2016-09-20] MEDS: INSULIN ASPART SUPPLEMENTAL SCALE SQ SCH ×4 (07:00→21:40)
[2016-09-20 08:21] LABS: BANDS 2 % (0-6); CORRECTED NUCLEATED RBC 7 /100 WBC (0-0); METAMYELOCYTES 2 % (0-1); MYELOCYTES 5 % (0-0); NEUTROPHIL # MANUAL DIFF 10.3 TH/MM3 (1.8-7.7); PLATELET ESTIMATE SMEAR NORMAL (NORMAL); PLATELET MORPHOLOGY NORMAL (NORMAL); POLYS (SEG NEUTROPHILS) 82 % (16-70); SCAN/DIFF FINAL DIFF MANUAL; WBC DIFF SAMPLE 100
[2016-09-20 08:23] LABS: KERATOCYTES OCC (NORMAL); OVALOCYTES 1+ (NORMAL)
[2016-09-20] MEDS: SODIUM CHLORIDE 0.9% FLUSH 5 ML FLUSH FLUSH SCH ×2 (08:28→11:58)
[2016-09-20] MEDS: BUDESONIDE-FORMOTEROL 160/4.5 MCG INHALER INH SCH ×2 (08:29→21:39)
[2016-09-20] MEDS: SUCRALFATE 1 GM TAB PO SCH ×3 (08:33→16:57)
[2016-09-20] MEDS: LORazepam 0.5 MG TAB PO SCH ×2 (08:33→21:39)
[2016-09-20] MEDS: DILTIAZEM-CD 180 MG CAP ER PO SCH (08:34)
[2016-09-20] MEDS: CEFUROXIME AXETIL 500 MG TAB PO SCH ×2 (08:34→21:38)
[2016-09-20] MEDS: predniSONE 10 MG TAB PO SCH ×2 (08:35→21:39)
[2016-09-20] MEDS: FLUCONAZOLE 200 MG TAB PO SCH (08:35)
[2016-09-20] MEDS: FUROSEMIDE 20 MG TAB PO SCH (08:36)
[2016-09-20] MEDS: POTASSIUM CHLORIDE 10 MEQ CONTROLLED RELEASE TAB PO SCH ×2 (08:36→21:39)
[2016-09-20] MEDS: PANTOPRAZOLE SOD 40 MG DELAYED RELEASE TAB PO SCH (08:36)
[2016-09-20] MEDS: THEOPHYLLINE 200 MG EXTENDED RELEASE CAP PO SCH (08:37)
[2016-09-20] MEDS: ACETAMINOPHEN/HYDROcodone 325 MG/7.5 MG TAB PO PRN (08:39)
[2016-09-20 09:24] LABS: INTERNATIONAL NORMALIZED RATIO 1.1 RATIO; PROTHROMBIN TIME - PATIENT 12.2 SEC (9.8-11.6)
[2016-09-20] MEDS: RESP: LEVALBUTEROL HYDROCHLORIDE 1.25 MG/3 ML NEB (PRN) NEB ×4 (09:41→19:28)
--- NOTE | 2016-09-20 11:20 | PD.ONC.PN ---
Subjective Subjective Remarks Afebrile overnight. patient tells me he still has pain in his right hip. He denies bleeding. Objective Data Date Time Temp Pulse Resp B/P Pulse Ox O2 Delivery O2 Flow Rate FiO2 09/20/16 09:43 97 21 09/20/16 08:00 96.4 105 18 138/89 98 09/20/16 03:33 96.8 104 20 119/85 95 09/20/16 00:00 97.8 111 28 140/95 95 09/19/16 20:00 98.8 100 24 121/89 94 09/19/16 20:00 94 Nasal Cannula 2.00 09/19/16 16:00 98.1 117 18 144/88 98 09/19/16 12:00 98.1 108 20 132/88 97 09/20/16 09/20/16 09/20/16 07:00 15:00 23:00 Output Total 1400 ml Balance -1400 ml Result Diagram: 09/20/16 0545 09/20/16 0545 Laboratory Results Laboratory Tests Test 09/19/16 09/20/16 09/20/16 12:08 05:45 09:00 Prothrombin Time 13.3 SEC 12.2 SEC Prothromb Time International 1.2 RATIO 1.1 RATIO Ratio White Blood Count 11.3 TH/MM3 Red Blood Count 3.34 MIL/MM3 Hemoglobin 8.2 GM/DL Hematocrit 25.6 % Mean Corpuscular Volume 76.8 FL Mean Corpuscular Hemoglobin 24.5 PG Mean Corpuscular Hemoglobin 31.9 % Concent Red Cell Distribution Width 26.1 % Platelet Count 209 TH/MM3 Mean Platelet Volume 7.2 FL Neutrophils (%) (Auto) 79.6 % Lymphocytes (%) (Auto) 14.6 % Monocytes (%) (Auto) 5.0 % Eosinophils (%) (Auto) 0.3 % Basophils (%) (Auto) 0.5 % Neutrophils # (Auto) 9.0 TH/MM3 Lymphocytes # (Auto) 1.7 TH/MM3 Monocytes # (Auto) 0.6 TH/MM3 Eosinophils # (Auto) 0.0 TH/MM3 Basophils # (Auto) 0.1 TH/MM3 CBC Comment AUTO DIFF Differential Total Cells 100 Counted Neutrophils % (Manual) 82 % Band Neutrophils % 2 % Lymphocytes % 8 % Monocytes % 1 % Neutrophils # (Manual) 10.3 TH/MM3 Metamyelocytes 2 % Myelocytes 5 % Nucleated Red Blood Cells 7 /100 WBC Differential Comment FINAL DIFF MANUAL Platelet Estimate NORMAL Platelet Morphology Comment NORMAL Basophilic Stippling FAINT Ovalocytes 1+ Keratocytes OCC Activated Partial 53.9 SEC Thromboplast Time Sodium Level 134 MEQ/L Potassium Level 3.9 MEQ/L Chloride Level 95 MEQ/L Carbon Dioxide Level 30.7 MEQ/L Anion Gap 8 MEQ/L Blood Urea Nitrogen 11 MG/DL Creatinine 0.91 MG/DL Estimat Glomerular Filtration 87 ML/MIN Rate Random Glucose 188 MG/DL Calcium Level 8.8 MG/DL Total Bilirubin 0.6 MG/DL Aspartate Amino Transf 23 U/L (AST/SGOT) Alanine Aminotransferase 51 U/L (ALT/SGPT) Alkaline Phosphatase 129 U/L Total Protein 6.1 GM/DL Albumin 3.1 GM/DL Culture Results Microbiology Date/Time Procedure Status Source Growth 09/18/16 12:35 Gram Stain - Final Resulted Fluid Other 09/18/16 12:35 Body Fluid Culture - Preliminary Resulted Fluid Other NO GROWTH IN 48 HOURS. 09/18/16 12:35 Fungal Smear - Final Resulted Fluid Other NO FUNGAL ELEMENTS SEEN. 09/18/16 12:35 Fungal Culture Resulted Fluid Other Pending Administered Medications Medications (Trade) Dose Ordered Sig/Gabi Route PRN Reason Start Time Stop Time Status Last Admin Dose Admin Atorvastatin Calcium (Lipitor) 20 mg HS PO 08/29/16 21:00 09/19/16 21:36 Budesonide/ Formoterol Fumarate (Symbicort 160-4.5 Inh) 2 puff Q12HR INH 08/29/16 21:00 09/20/16 08:29 Diltiazem HCl (Cardizem Cd) 360 mg DAILY PO 08/30/16 09:00 09/20/16 08:34 Fluconazole (Diflucan) 400 mg DAILY PO 08/30/16 09:00 09/20/16 08:35 Montelukast Sodium (Singulair) 10 mg HS PO 08/29/16 21:00 09/19/16 21:35 Pantoprazole Sodium (Protonix) 40 mg DAILY PO 08/30/16 09:00 09/20/16 08:36 Promethazine HCl/ Codeine (Phenergan-Codeine Liq) 5 ml Q4H PRN PO COUGH AND/OR COLD SYMPTOMS 08/29/16 18:30 09/18/16 16:39 Sucralfate (Carafate) 1 gm TID PO 08/30/16 09:00 09/20/16 08:33 IV Flush (NS Flush) 2 ml UNSCH PRN FLUSH FLUSH AFTER USING IV ACCESS 08/29/16 18:30 09/18/16 06:54 IV Flush (NS Flush) 2 ml BID FLUSH 08/29/16 21:00 09/20/16 08:28 Ondansetron HCl (Zofran Inj) 4 mg Q6H PRN IVP NAUSEA OR VOMITING 08/29/16 18:30 09/19/16 21:35 Lorazepam (Ativan) 0.5 mg BID PO 08/30/16 09:00 09/20/16 08:33 Clonidine (Catapres) 0.1 mg Q6H PRN PO SBP>160, DBP>90 09/02/16 23:45 09/19/16 23:58 IV Flush (NS Flush) See Protocol DAILY IVF 09/05/16 09:00 09/19/16 09:00 Heparin Sodium (Porcine) (Heparin Central Flush) See Protocol DAILY IVF 09/05/16 09:00 09/19/16 08:14 Cefuroxime Axetil (Ceftin) 500 mg Q12HR PO 09/06/16 09:00 09/20/16 08:34 Potassium Chloride (KCl) 10 meq Q12HR PO 09/06/16 21:00 09/20/16 08:36 Theophylline (Samuel-24) 400 mg DAILY PO 09/08/16 09:00 09/20/16 08:37 Promethazine HCl (Phenergan Inj) 12.5 mg Q8H PRN IM NAUESA 09/08/16 20:15 09/19/16 20:10 Furosemide (Lasix) 20 mg DAILY PO 09/16/16 15:00 09/20/16 08:36 Tramadol HCl 100 mg 100 mg Q8H PRN PO pain 09/16/16 18:00 09/19/16 21:37 Micafungin Sodium/ Sodium Chloride (Mycamine Inj/NS Inj) 100 ml @ 100 mls/hr Q24H IV 09/18/16 00:00 09/19/16 23:58 Prednisone (Deltasone) 10 mg BID PO 09/19/16 21:00 09/20/16 08:35 Acetaminophen/ Hydrocodone Bitart ([place] 7.5-325 Mg) 1 tab Q8H PRN PO PAIN SCALE 6 TO 10 09/19/16 22:45 09/20/16 08:39 Objective Remarks GENERAL: Middle aged male watching TV in room, sitting up in bed SKIN: Warm and dry. HEAD: Normocephalic. EYES: No injection or drainage. NECK: Supple, trachea midline. CARDIOVASCULAR: +S1/S2, tachy RESPIRATORY: scattered wheeze all lung fair. GASTROINTESTINAL: Abdomen soft, non-tender, nondistended. EXTREMITIES: No cyanosis. right thigh scar with some underlying edema. NEUROLOGICAL: awake and alert, normal speech. no obvious focal deficit Assessment/Plan Problem List: (1) Acute hypercapnic respiratory failure Status: Acute (2) Thrombocytopenia Status: Resolved (3) Superficial thrombophlebitis Status: Acute (4) Pulmonary embolism Status: Acute (5) Acute asthma exacerbation Status: Acute (6) Warfarin-induced coagulopathy Status: Acute (7) Septic hip Status: Acute (8) Abscess of hip, right Status: Acute Assessment 51-year-old male with a past medical history of recurrent asthma attacks with recurrent hospital admissions, hypertension, hyperlipidemia, history of pulmonary embolism and DVT and also right hip wound infection who was admitted to the hospital with shortness of breath and exacerbation of asthma. Hematology has been consulted to evaluate this patient who has been on Coumadin for DVT and pulmonary embolism and has been difficult to manage due labile INR. He on he has persistent suboptimal therapeutic levels. 1. Hx of Pulmonary embolism and DVT-- in the setting of a hospital admission in december 2015 2. Labile and difficult to manage INR while on Coumadin 3. Infected right hip wound. 4. Exacerbation of asthma. 5. GIB--resolved. colonoscopy was abandoned due to poor prep. GI signed off-- GIB likely due to hemorrhoids. H/H stable. Plan 1. continue heparin drip 2. monitor CBC Problem Qualifiers (1) Acute asthma exacerbation: Qualified Code: J45.51 - Severe persistent asthma with acute exacerbation Berenice Lo Sep 20, 2016 11:20 Reuben Cali MD Sep 22, 2016 15:08
[2016-09-20] MEDS: ONDANSETRON HCL 4 MG/2 ML VIAL IVP PRN (11:58)
--- NOTE | 2016-09-20 13:06 | PD.ORT.PN ---
Subjective Pain Scale: mild Subjective Remarks asked if he should have repeat aspiration Distance Walked Trying Objective Vitals Vital Signs Date Time Temp Pulse Resp B/P Pulse Ox O2 Delivery O2 Flow Rate FiO2 09/20/16 12:00 97.1 102 18 146/82 99 09/20/16 09:43 97 21 09/20/16 08:00 96.4 105 18 138/89 98 09/20/16 03:33 96.8 104 20 119/85 95 09/20/16 00:00 97.8 111 28 140/95 95 09/19/16 20:00 98.8 100 24 121/89 94 09/19/16 20:00 94 Nasal Cannula 2.00 09/19/16 16:00 98.1 117 18 144/88 98 I/O 09/19/16 09/19/16 09/19/16 09/20/16 09/20/16 09/20/16 07:00 15:00 23:00 07:00 15:00 23:00 Intake Total 480 ml Output Total 1300 ml 650 ml 1400 ml Balance -820 ml -650 ml -1400 ml Intake Oral 480 ml Output Urine Total 1300 ml 650 ml 1400 ml Stool Total 0 ml # Bowel Movements 0 1 Result Diagram: 09/20/16 0545 09/20/16 0545 Other Results Laboratory Tests Test 09/20/16 09:00 Prothrombin Time 12.2 SEC (9.8-11.6) Prothromb Time International 1.1 RATIO Ratio Imaging Last 48 hours Impressions Needle Aspiration Ultrasound 09/18/16 0000 Signed Impressions: Service Date/Time: Sunday, September 18, 2016 12:10 - CONCLUSION: Uncomplicated ultrasound guided aspiration. Elías Hull MD FACR Objective Remarks A,A, and O In recliner.with feet dangling eating lunch ,without pain. Right hip looks exactly same as it casi Friday pm, looks improving/benign No drainage , no obvious mass. hopefully discharge friday with IV macrofungin, and PO diflucan Assessment & Plan Assessment and Plan Right hip stable and improving Radiologist on aspiration felt it was most likely hematoma Sed rate 1, therefore surgery cancelled CRP 2 (elevated) Micro fluid negative so far Impression : Patient probably was admitted with hematoma right hip aug 29. He has had very high INRs on and off. Clinically his hip is responding very well to macrofungin and diflucan Nursing did not resume heparin yesterday, RN instructed by me today to do so. will continue antifungals, and keep c;lose eye on patient. He needs to be mobilized and discharged. Shaan Lindo MD Sep 20, 2016 13:06
--- NOTE | 2016-09-20 13:09 | HHI.PR ---
Subjective History of Present Illness Patient feeling weak and tired have tachycardia still wheezing on oral Prednisone bronchodialtors c/o right hip pain s/p CT Scan of Pelvis shows large collection of fluid orthopedic managing. d/w Orthopedic S/P US Guided drainage of hematoma. have extremity edema better on Lasix 20 mg PO daily...on heparin gtt. holding coumadin. high WBC count on steroids will monitor. Review of Systems Constitutional Constitutional: Fatigue, Weakness Pulmonary Respiratory: Coughing, Shortness of Breath, Wheezing Cardiology CV Remarks extremity edema. Musculoskeletal MS: Swelling MS Remarks extremity edema better. Allergic/Immunologic Allergic/Immunologic: Asthma Vitals/Results Intake & Output 09/19/16 09/19/16 09/20/16 15:00 23:00 07:00 Output Total 650 ml 1400 ml Balance -650 ml -1400 ml Output Urine Total 650 ml 1400 ml Stool Total 0 ml # Bowel Movements 1 Vital Signs Vital Signs Date Time Temp Pulse Resp B/P Pulse Ox O2 Delivery O2 Flow Rate FiO2 09/20/16 12:00 97.1 102 18 146/82 99 09/20/16 09:43 97 21 09/20/16 08:00 96.4 105 18 138/89 98 09/20/16 07:35 Room Air 09/20/16 03:33 96.8 104 20 119/85 95 09/20/16 00:00 97.8 111 28 140/95 95 09/19/16 20:00 98.8 100 24 121/89 94 09/19/16 20:00 94 Nasal Cannula 2.00 09/19/16 16:00 98.1 117 18 144/88 98 CBC/BMP: 09/20/16 0545 09/20/16 0545 Lab Results Laboratory Tests Test 09/20/16 09/20/16 05:45 09:00 White Blood Count 11.3 TH/MM3 Red Blood Count 3.34 MIL/MM3 Hemoglobin 8.2 GM/DL Hematocrit 25.6 % Mean Corpuscular Volume 76.8 FL Mean Corpuscular Hemoglobin 24.5 PG Mean Corpuscular Hemoglobin 31.9 % Concent Red Cell Distribution Width 26.1 % Platelet Count 209 TH/MM3 Mean Platelet Volume 7.2 FL Neutrophils (%) (Auto) 79.6 % Lymphocytes (%) (Auto) 14.6 % Monocytes (%) (Auto) 5.0 % Eosinophils (%) (Auto) 0.3 % Basophils (%) (Auto) 0.5 % Neutrophils # (Auto) 9.0 TH/MM3 Lymphocytes # (Auto) 1.7 TH/MM3 Monocytes # (Auto) 0.6 TH/MM3 Eosinophils # (Auto) 0.0 TH/MM3 Basophils # (Auto) 0.1 TH/MM3 CBC Comment AUTO DIFF Differential Total Cells 100 Counted Neutrophils % (Manual) 82 % Band Neutrophils % 2 % Lymphocytes % 8 % Monocytes % 1 % Neutrophils # (Manual) 10.3 TH/MM3 Metamyelocytes 2 % Myelocytes 5 % Nucleated Red Blood Cells 7 /100 WBC Differential Comment FINAL DIFF MANUAL Platelet Estimate NORMAL Platelet Morphology Comment NORMAL Basophilic Stippling FAINT Ovalocytes 1+ Keratocytes OCC Activated Partial 53.9 SEC Thromboplast Time Sodium Level 134 MEQ/L Potassium Level 3.9 MEQ/L Chloride Level 95 MEQ/L Carbon Dioxide Level 30.7 MEQ/L Anion Gap 8 MEQ/L Blood Urea Nitrogen 11 MG/DL Creatinine 0.91 MG/DL Estimat Glomerular Filtration 87 ML/MIN Rate Random Glucose 188 MG/DL Calcium Level 8.8 MG/DL Total Bilirubin 0.6 MG/DL Aspartate Amino Transf 23 U/L (AST/SGOT) Alanine Aminotransferase 51 U/L (ALT/SGPT) Alkaline Phosphatase 129 U/L Total Protein 6.1 GM/DL Albumin 3.1 GM/DL Prothrombin Time 12.2 SEC Prothromb Time International 1.1 RATIO Ratio Physical Exam General General Appearance: Well Developed, Well Nourished, No Acute Distress, Comfortable, Anxious Eyes Eye Exam: Pupils Equal, Sclera White, Extraocular Movement Intact Ears & Nose Ears & Nose Exam: Nasal Mucosa [place] Throat Throat Exam: Oral Mucosa [place] & Moist, Oral Pharynx Normal Neck Neck Exam: Neck Supple, Trachea Midline Pulmonary Resp Exam: Breath Sounds Equal, No Distress, Rhonchi Resp Remarks bilateral wheezing. Cardiology CV Exam: Regular, Normal Sinus Rhythm, Tachycardia Gastrointestinal/Abdomen GI Exam: Soft, Non-Tender, Bowel Sounds Present Musculoskeletal MS Exam: Normal Tone Integumentary Skin Exam: Warm, Dry Skin Remarks right hip wound. Extremeties Extremities Exam: No Edema, Pedal Pulses Palpable, Moderate Edema, Pitting Edema Extremeties Remarks tenderness right hip. Neurologic Neuro Exam: Alert, Awake, Oriented, Speech Clear, Moving All Extremities Psychiatric Psych Exam: Appropriate Responses PUD Prophylasis PUD Prophylaxis: Protonix Assessment/Plan Assessment/Plan Assessment and Plan 1. Acute asthma/ COPD exacerbation with respiratory failure/insufficiency on admission...on bronchodilator Prednisone. and Antibiotic oral. 2. Coumadin toxicity...resolved.. on Heparin gtt. holding coumadin. 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 4. Tachycardia. 5. Hypertension. 6. History of depression and anxiety. 7. History of DVT and PE. Patient have episode of bleeding from rectum and nose with xarelto d/w hematology Dr Reuben Cali discontinued Xarelto. on heparin gtt..+ holding coumadin. 8. Arthritis. 9. History of hyperlipidemia. 10. Gastroesophageal reflux disease (GERD). 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 Sever right hip pain s/p CT Scan of Pelvis shows large collection of fluid orthopedic managing. d/w Orthopedic S/P US Guided drainage of hematoma. 13. High WBC count on steroids will monitor. PLAN: Lasix 40 mg PO Daily. Continue oxygen , keep saturation above 92%. PO steroid Aerosol treatment qid & q2 hrs prn continue with Symbicort twice daily Continue Singulair On Theophylline Antitussives when necessary Continue with Xanax dose 0.5 q 8 hr On PO Ceftin BID. On Diflucan..ID Input noted. Analgesics Wound care on heparin gtt. cont Cardizem Proton pump inhibitor for GI prophylaxis. S/P COLONOSCOPY..POOR PREP. d/w PT Will follow Check CBC with diff CMP PT/INR in AM. Discussed Condition with: Patient, Spouse Myron Woodward MD Sep 20, 2016 13:09
[2016-09-20] MEDS: ALPRAZolam 0.5 MG TAB PO PRN (15:27)
[2016-09-20] MEDS: MONTELUKAST SODIUM 10 MG TAB PO SCH (21:39)
[2016-09-20] MEDS: ATORVASTATIN 20 MG TAB PO SCH (21:39)
[2016-09-21] VITALS (8 sets, daily range): BP systolic 127–155; BP diastolic 77–92; PULSE 107–116; RESP 20–22; TEMP 96.2–97.7; O2SAT 95–99
[2016-09-21] MEDS: ACETAMINOPHEN/HYDROcodone 325 MG/7.5 MG TAB PO PRN ×3 (00:04→18:12)
[2016-09-21] MEDS: MICAFUNGIN INJ 150 MG in SODIUM CHLORIDE 0.9% INJ 100 ML IV SCH (00:04)
[2016-09-21] MEDS: HEPARIN-D5W INJ 250 ML IV SCH ×2 (05:59→21:40)
[2016-09-21] MEDS: INSULIN ASPART SUPPLEMENTAL SCALE SQ SCH ×4 (06:29→21:27)
[2016-09-21 06:46] LABS: APTT (PATIENT) 44.4 SEC (24.3-30.1)
[2016-09-21] MEDS: SUCRALFATE 1 GM TAB PO SCH ×3 (08:49→17:27)
[2016-09-21] MEDS: LORazepam 0.5 MG TAB PO SCH ×2 (08:50→21:26)
[2016-09-21] MEDS: THEOPHYLLINE 200 MG EXTENDED RELEASE CAP PO SCH (08:50)
[2016-09-21] MEDS: FUROSEMIDE 20 MG TAB PO SCH (08:50)
[2016-09-21] MEDS: CEFUROXIME AXETIL 500 MG TAB PO SCH ×2 (08:50→21:26)
[2016-09-21] MEDS: predniSONE 10 MG TAB PO SCH ×2 (08:50→21:26)
[2016-09-21] MEDS: POTASSIUM CHLORIDE 10 MEQ CONTROLLED RELEASE TAB PO SCH ×2 (08:51→21:26)
[2016-09-21] MEDS: PANTOPRAZOLE SOD 40 MG DELAYED RELEASE TAB PO SCH (08:51)
[2016-09-21] MEDS: DILTIAZEM-CD 180 MG CAP ER PO SCH (08:51)
[2016-09-21] MEDS: SODIUM CHLORIDE 0.9% FLUSH 5 ML FLUSH FLUSH SCH ×2 (08:52→21:26)
[2016-09-21] MEDS: BUDESONIDE-FORMOTEROL 160/4.5 MCG INHALER INH SCH ×2 (09:00→21:27)
[2016-09-21] MEDS: RESP: LEVALBUTEROL HYDROCHLORIDE 1.25 MG/3 ML NEB (PRN) NEB (09:22)
[2016-09-21] MEDS: ALPRAZolam 0.5 MG TAB PO PRN (10:12)
[2016-09-21] MEDS: FLUCONAZOLE 200 MG TAB PO SCH (10:12)
--- NOTE | 2016-09-21 10:59 | HHI.PR ---
Subjective History of Present Illness Patient feeling weak and tired have tachycardia still wheezing on oral Prednisone bronchodialtors c/o right hip pain s/p CT Scan of Pelvis shows large collection of fluid orthopedic managing. d/w Orthopedic S/P US Guided drainage of hematoma. have extremity edema better on Lasix 20 mg PO daily...on heparin gtt. holding coumadin. high WBC count on steroids will monitor. Review of Systems Constitutional Constitutional: Fatigue, Weakness Pulmonary Respiratory: Coughing, Shortness of Breath, Wheezing Cardiology CV Remarks extremity edema. Musculoskeletal MS: Swelling MS Remarks extremity edema better. Allergic/Immunologic Allergic/Immunologic: Asthma Vitals/Results Intake & Output 09/20/16 09/20/16 09/21/16 15:00 23:00 07:00 Intake Total 720 ml 358 ml Output Total 800 ml 450 ml Balance -80 ml 358 ml -450 ml Intake Oral 720 ml IV Total 358 ml Output Urine Total 800 ml 450 ml # Voids 2 # Bowel Movements 0 Vital Signs Vital Signs Date Time Temp Pulse Resp B/P Pulse Ox O2 Delivery O2 Flow Rate FiO2 09/21/16 09:22 95 21 09/21/16 08:26 96.3 111 20 155/92 95 09/21/16 06:02 96.2 107 20 130/86 96 09/21/16 01:04 18 09/21/16 00:00 97.3 114 20 131/86 98 09/20/16 20:00 98.1 111 22 156/69 98 09/20/16 19:29 97 21 09/20/16 18:37 150 09/20/16 16:00 98.1 101 20 138/82 99 09/20/16 12:00 97.1 102 18 146/82 99 CBC/BMP: 09/20/16 0545 09/20/16 0545 Lab Results Laboratory Tests Test 09/21/16 05:45 Activated Partial 44.4 SEC Thromboplast Time Physical Exam General General Appearance: Well Developed, Well Nourished, No Acute Distress, Comfortable, Anxious Eyes Eye Exam: Pupils Equal, Sclera White, Extraocular Movement Intact Ears & Nose Ears & Nose Exam: Nasal Mucosa [place] Throat Throat Exam: Oral Mucosa [place] & Moist, Oral Pharynx Normal Neck Neck Exam: Neck Supple, Trachea Midline Pulmonary Resp Exam: Breath Sounds Equal, Rhonchi Resp Remarks bilateral wheezing. Cardiology CV Exam: Regular, Tachycardia Gastrointestinal/Abdomen GI Exam: Soft, Non-Tender, Bowel Sounds Present Musculoskeletal MS Exam: Normal Tone Integumentary Skin Exam: Warm, Dry Skin Remarks right hip wound. Extremeties Extremities Exam: No Edema, Pedal Pulses Palpable, Moderate Edema, Pitting Edema Extremeties Remarks tenderness right hip. Neurologic Neuro Exam: Alert, Awake, Oriented, Speech Clear, Moving All Extremities Psychiatric Psych Exam: Appropriate Responses PUD Prophylasis PUD Prophylaxis: Protonix Assessment/Plan Assessment/Plan Assessment and Plan 1. Acute asthma/ COPD exacerbation with respiratory failure/insufficiency on admission...on bronchodilator + Prednisone... and Antibiotic oral. 2. Coumadin toxicity...resolved.. on Heparin gtt. holding coumadin. 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 4. Tachycardia. 5. Hypertension. 6. History of depression and anxiety. 7. History of DVT and PE. Patient have episode of bleeding from rectum and nose with xarelto discontinued Xarelto. on heparin gtt..+ holding coumadin. 8. Arthritis. 9. History of hyperlipidemia. 10. Gastroesophageal reflux disease (GERD). 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 Sever right hip pain s/p CT Scan of Pelvis shows large collection of fluid orthopedic managing. d/w Orthopedic S/P US Guided drainage of hematoma. 13. High WBC count on steroids will monitor. PLAN: Lasix 40 mg PO Daily. Continue oxygen , keep saturation above 92%. PO steroid Aerosol treatment qid & q2 hrs prn continue with Symbicort twice daily Continue Singulair On Theophylline Antitussives when necessary Continue with Xanax dose 0.5 q 8 hr On PO Ceftin BID. On Diflucan..ID Input noted. Analgesics Wound care on heparin gtt. cont Cardizem Proton pump inhibitor for GI prophylaxis. S/P COLONOSCOPY..POOR PREP. d/w PT Will follow Check CBC with diff CMP PT/INR in AM. Discussed Condition with: Patient Myron Woodward MD Sep 21, 2016 10:59
--- NOTE | 2016-09-21 11:03 | PD.ORT.PN ---
Subjective Pain Scale: mostly breathing issues with activity, mild pain rt hip Subjective Remarks Distance Walked to BR and in hallway yesterdy Objective Vitals Vital Signs Date Time Temp Pulse Resp B/P Pulse Ox O2 Delivery O2 Flow Rate FiO2 09/21/16 09:22 95 21 09/21/16 08:26 96.3 111 20 155/92 95 09/21/16 06:02 96.2 107 20 130/86 96 09/21/16 01:04 18 09/21/16 00:00 97.3 114 20 131/86 98 09/20/16 20:00 98.1 111 22 156/69 98 09/20/16 19:29 97 21 09/20/16 18:37 150 09/20/16 16:00 98.1 101 20 138/82 99 09/20/16 12:00 97.1 102 18 146/82 99 I/O 09/20/16 09/20/16 09/20/16 09/21/16 09/21/16 09/21/16 07:00 15:00 23:00 07:00 15:00 23:00 Intake Total 720 ml 358 ml Output Total 1400 ml 800 ml 450 ml Balance -1400 ml -80 ml 358 ml -450 ml Intake Oral 720 ml IV Total 358 ml Output Urine Total 1400 ml 800 ml 450 ml # Voids 2 # Bowel Movements 0 Result Diagram: 09/20/16 0545 09/20/16 0545 Imaging Last 48 hours Impressions Needle Aspiration Ultrasound 09/18/16 0000 Signed Impressions: Service Date/Time: Sunday, September 18, 2016 12:10 - CONCLUSION: Uncomplicated ultrasound guided aspiration. Elías Hull MD FACR Objective Remarks A,A, and O In recliner.,without pain. hopefully discharge friday with IV macrofungin, and PO diflucan Assessment & Plan Assessment and Plan Right hip stable and improving Dc ed daily blood count and pt/inr because he is not on coumadin, and no reason for daily blood count. All MDs working on getting him DCed friday. Will see! Shaan Lindo MD Sep 21, 2016 11:03
[2016-09-21] MEDS: RESP: ALBUTEROL 2.5 MG/3 ML NEB (PRN) NEB (16:14)
[2016-09-21] MEDS: MONTELUKAST SODIUM 10 MG TAB PO SCH (21:26)
[2016-09-21] MEDS: ATORVASTATIN 20 MG TAB PO SCH (21:26)
[2016-09-22] VITALS (10 sets, daily range): BP systolic 121–144; BP diastolic 78–99; PULSE 96–150; RESP 20; TEMP 96.6–97.7; O2SAT 94–99
[2016-09-22] MEDS: MICAFUNGIN INJ 150 MG in SODIUM CHLORIDE 0.9% INJ 100 ML IV SCH (00:20)
[2016-09-22] MEDS: ACETAMINOPHEN/HYDROcodone 325 MG/7.5 MG TAB PO PRN ×2 (03:47→17:57)
[2016-09-22] MEDS: INSULIN ASPART SUPPLEMENTAL SCALE SQ SCH ×4 (06:27→21:17)
[2016-09-22 06:59] LABS: AUTOMATED NEUTROPHIL # 5.7 TH/MM3 (1.8-7.7); BASOPHIL # 0.1 TH/MM3 (0-0.2); BASOPHIL % 0.8 % (0.0-2.0); EOSINOPHIL % 0.6 % (0.0-4.0); HEMATOCRIT 25.1 % (39.0-51.0); LYMPH % 18.1 % (9.0-44.0); LYMPHOCYTE # 1.4 TH/MM3 (1.0-4.8); MEAN CELL VOLUME 77.7 FL (80.0-100.0); MEAN CORPUSCULAR HEMOGLOBIN 25.9 PG (27.0-34.0); MEAN CORPUSCULAR HGB CONC 33.3 % (32.0-36.0); MONO % 5.8 % (0.0-8.0); NEUT % 74.7 % (16.0-70.0); PLATELET COUNT 238 TH/MM3 (150-450); RED BLOOD COUNT 3.23 MIL/MM3 (4.50-5.90); RED CELL DISTRIBUTION WIDTH 25.9 % (11.6-17.2); WHITE BLOOD COUNT 7.6 TH/MM3 (4.0-11.0)
[2016-09-22 07:09] LABS: ANION GAP 10 MEQ/L (5-15); AST (GOT) 41 U/L (15-37); BICARBONATE 27.7 MEQ/L (21.0-32.0); BLOOD UREA NITROGEN 9 MG/DL (7-18); CHLORIDE 97 MEQ/L (98-107); GLOMERULAR FILTRATION RATE 90 ML/MIN (>89); POTASSIUM 4.2 MEQ/L (3.5-5.1); SODIUM (NA) 135 MEQ/L (136-145)
[2016-09-22 07:12] LABS: ALKALINE PHOSPHATASE 142 U/L (45-117); ALT (GPT) 73 U/L (12-78); TOTAL BILIRUBIN ADULT 0.6 MG/DL (0.2-1.0)
[2016-09-22 07:33] LABS: APTT (PATIENT) 56.2 SEC (24.3-30.1)
[2016-09-22 07:56] LABS: HEMO FLAGS AUTO DIFF
[2016-09-22] MEDS: THEOPHYLLINE 200 MG EXTENDED RELEASE CAP PO SCH (08:21)
[2016-09-22] MEDS: POTASSIUM CHLORIDE 10 MEQ CONTROLLED RELEASE TAB PO SCH ×2 (08:21→21:20)
[2016-09-22] MEDS: PANTOPRAZOLE SOD 40 MG DELAYED RELEASE TAB PO SCH (08:21)
[2016-09-22] MEDS: CEFUROXIME AXETIL 500 MG TAB PO SCH ×2 (08:21→21:17)
[2016-09-22] MEDS: FLUCONAZOLE 200 MG TAB PO SCH (08:21)
[2016-09-22] MEDS: DILTIAZEM-CD 180 MG CAP ER PO SCH (08:21)
[2016-09-22] MEDS: LORazepam 0.5 MG TAB PO SCH ×2 (08:21→21:17)
[2016-09-22] MEDS: SODIUM CHLORIDE 0.9% FLUSH 5 ML FLUSH FLUSH SCH ×2 (08:22→21:00)
[2016-09-22] MEDS: predniSONE 10 MG TAB PO SCH (08:22)
[2016-09-22] MEDS: SUCRALFATE 1 GM TAB PO SCH ×3 (08:22→17:53)
[2016-09-22] MEDS: BUDESONIDE-FORMOTEROL 160/4.5 MCG INHALER INH SCH ×2 (08:22→21:16)
[2016-09-22] MEDS: FUROSEMIDE 20 MG TAB PO SCH (08:22)
[2016-09-22] MEDS: RESP: LEVALBUTEROL HYDROCHLORIDE 1.25 MG/3 ML NEB (PRN) NEB ×2 (10:45→16:37)
[2016-09-22 11:21] LABS: BANDS 10 % (0-6); CORRECTED NUCLEATED RBC 3 /100 WBC (0-0); MYELOCYTES 5 % (0-0); NEUTROPHIL # MANUAL DIFF 6.8 TH/MM3 (1.8-7.7); POLYS (SEG NEUTROPHILS) 75 % (16-70); WBC DIFF SAMPLE 100
[2016-09-22 11:22] LABS: BURR CELLS 1+ (NORMAL); OVALOCYTES 1+ (NORMAL); PLATELET ESTIMATE SMEAR NORMAL (NORMAL); PLATELET MORPHOLOGY NORMAL (NORMAL); POLYCHROMASIA 2.4 % (0.0-1.9); SCAN/DIFF FINAL DIFF MANUAL
[2016-09-22] MEDS: ONDANSETRON HCL 4 MG/2 ML VIAL IVP PRN (12:18)
--- NOTE | 2016-09-22 13:23 | HHI.PR ---
Subjective History of Present Illness Patient feeling weak and tired have tachycardia still wheezing on oral Prednisone bronchodialtors c/o right hip pain s/p CT Scan of Pelvis shows large collection of fluid orthopedic managing. d/w Orthopedic S/P US Guided drainage of hematoma. have extremity edema better ..on heparin gtt. holding coumadin. high WBC count normal today. Review of Systems Constitutional Constitutional: Fatigue, Weakness Pulmonary Respiratory: Coughing, Shortness of Breath, Wheezing Cardiology CV Remarks extremity edema. Musculoskeletal MS: Swelling MS Remarks extremity edema better. Allergic/Immunologic Allergic/Immunologic: Asthma Vitals/Results Intake & Output 09/21/16 09/21/16 09/22/16 15:00 23:00 07:00 Intake Total 1920 ml 480 ml Output Total 900 ml Balance 1020 ml 480 ml Intake Oral 1920 ml 480 ml Output Urine Total 900 ml # Voids 2 1 # Bowel Movements 3 Vital Signs Vital Signs Date Time Temp Pulse Resp B/P Pulse Ox O2 Delivery O2 Flow Rate FiO2 09/22/16 12:00 96.7 120 20 121/97 97 09/22/16 10:47 99 21 09/22/16 08:00 97.7 112 20 144/99 97 09/22/16 07:48 Nasal Cannula 2.00 09/22/16 03:31 97.6 110 20 122/78 97 09/22/16 02:19 97.1 104 20 140/87 94 09/21/16 21:49 97.7 115 22 127/77 99 09/21/16 19:12 18 09/21/16 16:41 97.0 109 20 133/91 98 CBC/BMP: 09/22/16 0620 09/22/16 0620 Lab Results Laboratory Tests Test 09/22/16 06:20 White Blood Count 7.6 TH/MM3 Red Blood Count 3.23 MIL/MM3 Hemoglobin 8.3 GM/DL Hematocrit 25.1 % Mean Corpuscular Volume 77.7 FL Mean Corpuscular Hemoglobin 25.9 PG Mean Corpuscular Hemoglobin 33.3 % Concent Red Cell Distribution Width 25.9 % Platelet Count 238 TH/MM3 Mean Platelet Volume 7.3 FL Neutrophils (%) (Auto) 74.7 % Lymphocytes (%) (Auto) 18.1 % Monocytes (%) (Auto) 5.8 % Eosinophils (%) (Auto) 0.6 % Basophils (%) (Auto) 0.8 % Neutrophils # (Auto) 5.7 TH/MM3 Lymphocytes # (Auto) 1.4 TH/MM3 Monocytes # (Auto) 0.4 TH/MM3 Eosinophils # (Auto) 0.0 TH/MM3 Basophils # (Auto) 0.1 TH/MM3 CBC Comment AUTO DIFF Differential Total Cells 100 Counted Neutrophils % (Manual) 75 % Band Neutrophils % 10 % Lymphocytes % 6 % Monocytes % 4 % Neutrophils # (Manual) 6.8 TH/MM3 Myelocytes 5 % Nucleated Red Blood Cells 3 /100 WBC Differential Comment FINAL DIFF MANUAL Platelet Estimate NORMAL Platelet Morphology Comment NORMAL Polychromasia 2.4 % Ovalocytes 1+ [place] Cells 1+ Activated Partial 56.2 SEC Thromboplast Time Sodium Level 135 MEQ/L Potassium Level 4.2 MEQ/L Chloride Level 97 MEQ/L Carbon Dioxide Level 27.7 MEQ/L Anion Gap 10 MEQ/L Blood Urea Nitrogen 9 MG/DL Creatinine 0.89 MG/DL Estimat Glomerular Filtration 90 ML/MIN Rate Random Glucose 179 MG/DL Calcium Level 8.7 MG/DL Total Bilirubin 0.6 MG/DL Aspartate Amino Transf 41 U/L (AST/SGOT) Alanine Aminotransferase 73 U/L (ALT/SGPT) Alkaline Phosphatase 142 U/L Total Protein 6.0 GM/DL Albumin 3.2 GM/DL Physical Exam General General Appearance: Well Developed, Well Nourished, No Acute Distress, Comfortable, Anxious Eyes Eye Exam: Pupils Equal, Sclera White, Extraocular Movement Intact Ears & Nose Ears & Nose Exam: Nasal Mucosa [place] Throat Throat Exam: Oral Mucosa [place] & Moist, Oral Pharynx Normal Neck Neck Exam: Neck Supple, Trachea Midline Pulmonary Resp Exam: Breath Sounds Equal, Rhonchi Resp Remarks bilateral wheezing. Cardiology CV Exam: Regular, Tachycardia Gastrointestinal/Abdomen GI Exam: Soft, Non-Tender, Bowel Sounds Present Musculoskeletal MS Exam: Normal Tone Integumentary Skin Exam: Warm, Dry Skin Remarks right hip wound. Extremeties Extremities Exam: No Edema, Pedal Pulses Palpable, Moderate Edema, Pitting Edema Extremeties Remarks tenderness right hip. Neurologic Neuro Exam: Alert, Awake, Oriented, Speech Clear, Moving All Extremities Psychiatric Psych Exam: Appropriate Responses PUD Prophylasis PUD Prophylaxis: Protonix Assessment/Plan Assessment/Plan Assessment and Plan 1. Acute asthma/ COPD exacerbation with respiratory failure/insufficiency on admission...on bronchodilator + Prednisone... and Antibiotic oral. 2. Coumadin toxicity...resolved.. on Heparin gtt. holding coumadin. 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 4. Tachycardia. 5. Hypertension. 6. History of depression and anxiety. 7. History of DVT and PE. Patient have episode of bleeding from rectum and nose with xarelto discontinued Xarelto. on heparin gtt..+ holding coumadin. 8. Arthritis. 9. History of hyperlipidemia. 10. Gastroesophageal reflux disease (GERD). 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 Sever right hip pain s/p CT Scan of Pelvis shows large collection of fluid orthopedic managing. d/w Orthopedic S/P US Guided drainage of hematoma. on pain medicine. 13. High WBC count normal now. PLAN: Continue oxygen , keep saturation above 92%. PO steroid Aerosol treatment qid & q2 hrs prn continue with Symbicort twice daily Continue Singulair On Theophylline Antitussives when necessary Continue with Xanax dose 0.5 q 8 hr On PO Ceftin BID. On Diflucan..ID Input noted. Analgesics Wound care on heparin gtt. cont Cardizem Proton pump inhibitor for GI prophylaxis. S/P COLONOSCOPY..POOR PREP. d/w PT Will follow Check CBC with diff CMP PT/INR in AM. Discussed Condition with: Patient Myron Woodward MD Sep 22, 2016 13:23
[2016-09-22] MEDS: PROMETHAZINE INJ 25 MG/ML VIAL IM PRN (14:28)
[2016-09-22] MEDS: HEPARIN-D5W INJ 250 ML IV SCH (14:39)
[2016-09-22] MEDS: ALPRAZolam 0.5 MG TAB PO PRN (17:58)
[2016-09-22] MEDS: ATORVASTATIN 20 MG TAB PO SCH (21:17)
[2016-09-22] MEDS: MONTELUKAST SODIUM 10 MG TAB PO SCH (21:17)
[2016-09-23] VITALS (10 sets, daily range): BP systolic 122–142; BP diastolic 78–96; PULSE 72–109; RESP 18–20; TEMP 96.6–97.2; O2SAT 94–99
[2016-09-23] MEDS: MICAFUNGIN INJ 150 MG in SODIUM CHLORIDE 0.9% INJ 100 ML IV SCH (00:23)
[2016-09-23] MEDS: ACETAMINOPHEN/HYDROcodone 325 MG/7.5 MG TAB PO PRN ×2 (01:19→15:29)
[2016-09-23] MEDS: HEPARIN-D5W INJ 250 ML IV SCH (05:10)
[2016-09-23] MEDS: INSULIN ASPART SUPPLEMENTAL SCALE SQ SCH ×4 (07:00→20:30)
--- NOTE | 2016-09-23 07:28 | HHI.PR ---
Subjective History of Present Illness Patient feeling weak and tired have tachycardia still wheezing on oral Prednisone bronchodialtors c/o right hip pain s/p CT Scan of Pelvis shows large collection of fluid orthopedic managing. d/w Orthopedic S/P US Guided drainage of hematoma. have extremity edema better ..on heparin gtt. holding coumadin. high WBC count normal today. DC Plan soon when ok with All. Review of Systems Constitutional Constitutional: Fatigue, Weakness Pulmonary Respiratory: Coughing, Shortness of Breath, Wheezing Cardiology CV Remarks extremity edema. Musculoskeletal MS: Swelling MS Remarks extremity edema better. Allergic/Immunologic Allergic/Immunologic: Asthma Vitals/Results Intake & Output 09/22/16 09/22/16 09/23/16 15:00 23:00 07:00 Intake Total 240 ml 480 ml 240 ml Output Total 2700 ml 450 ml 650 ml Balance -2460 ml 30 ml -410 ml Intake Oral 240 ml 480 ml 240 ml Output Urine Total 2700 ml 450 ml 650 ml # Bowel Movements 2 Vital Signs Vital Signs Date Time Temp Pulse Resp B/P Pulse Ox O2 Delivery O2 Flow Rate FiO2 09/23/16 04:06 96.6 107 20 128/90 96 09/23/16 00:44 96.9 106 20 142/85 99 09/22/16 22:59 150 09/22/16 21:50 Nasal Cannula 2.00 09/22/16 19:30 96.9 102 20 142/84 99 09/22/16 16:32 100 09/22/16 16:00 96.6 96 20 137/97 97 09/22/16 12:00 96.7 120 20 121/97 97 09/22/16 10:47 99 21 09/22/16 08:00 97.7 112 20 144/99 97 09/22/16 07:48 Nasal Cannula 2.00 CBC/BMP: 09/22/16 0620 09/22/16 0620 Physical Exam General General Appearance: Well Developed, Well Nourished, No Acute Distress, Comfortable, Anxious Eyes Eye Exam: Pupils Equal, Sclera White, Extraocular Movement Intact Ears & Nose Ears & Nose Exam: Nasal Mucosa [place] Throat Throat Exam: Oral Mucosa [place] & Moist, Oral Pharynx Normal Neck Neck Exam: Neck Supple, Trachea Midline Pulmonary Resp Exam: Breath Sounds Equal, Rhonchi Resp Remarks bilateral wheezing. Cardiology CV Exam: Regular, Tachycardia Gastrointestinal/Abdomen GI Exam: Soft, Non-Tender, Bowel Sounds Present Musculoskeletal MS Exam: Normal Tone Integumentary Skin Exam: Warm, Dry Skin Remarks right hip wound. Extremeties Extremities Exam: No Edema, Pedal Pulses Palpable, Moderate Edema, Pitting Edema Extremeties Remarks tenderness right hip. Neurologic Neuro Exam: Alert, Awake, Oriented, Speech Clear, Moving All Extremities Psychiatric Psych Exam: Appropriate Responses PUD Prophylasis PUD Prophylaxis: Protonix Assessment/Plan Assessment/Plan Assessment and Plan 1. Acute asthma/ COPD exacerbation with respiratory failure/insufficiency on admission...on bronchodilator + Prednisone... and Antibiotic oral. 2. Coumadin toxicity...resolved.. on Heparin gtt. holding coumadin. 3. 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 4. Tachycardia. 5. Hypertension. 6. History of depression and anxiety. 7. History of DVT and PE. Patient have episode of bleeding from rectum and nose with xarelto discontinued Xarelto. on heparin gtt..+ holding coumadin. 8. Arthritis. 9. History of hyperlipidemia. 10. Gastroesophageal reflux disease (GERD). 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 Sever right hip pain s/p CT Scan of Pelvis shows large collection of fluid orthopedic managing. d/w Orthopedic S/P US Guided drainage of hematoma. on pain medicine. 13. High WBC count normal now. PLAN: Continue oxygen , keep saturation above 92%. PO steroid Aerosol treatment qid & q2 hrs prn continue with Symbicort twice daily Continue Singulair On Theophylline Antitussives when necessary Continue with Xanax dose 0.5 q 8 hr On PO Ceftin BID. On Diflucan. + Micafungin. ..ID Input noted. Analgesics Wound care on heparin gtt. cont Cardizem Proton pump inhibitor for GI prophylaxis. S/P COLONOSCOPY..POOR PREP. d/w PT Will follow Check CBC with diff CMP PT/INR in AM. Discussed Condition with: Patient Myron Woodward MD Sep 23, 2016 07:28
[2016-09-23 07:48] LABS: AUTOMATED NEUTROPHIL # 4.7 TH/MM3 (1.8-7.7); BASOPHIL # 0.1 TH/MM3 (0-0.2); BASOPHIL % 0.8 % (0.0-2.0); EOSINOPHIL # 0.1 TH/MM3 (0-0.4); EOSINOPHIL % 1.2 % (0.0-4.0); HEMATOCRIT 26.8 % (39.0-51.0); LYMPH % 25.8 % (9.0-44.0); LYMPHOCYTE # 1.9 TH/MM3 (1.0-4.8); MEAN CELL VOLUME 78.9 FL (80.0-100.0); MEAN CORPUSCULAR HGB CONC 31.6 % (32.0-36.0); MONO % 6.6 % (0.0-8.0); NEUT % 65.6 % (16.0-70.0); PLATELET COUNT 252 TH/MM3 (150-450); RED BLOOD COUNT 3.39 MIL/MM3 (4.50-5.90); RED CELL DISTRIBUTION WIDTH 26.8 % (11.6-17.2); WHITE BLOOD COUNT 7.2 TH/MM3 (4.0-11.0)
[2016-09-23 07:55] LABS: ALT (GPT) 67 U/L (12-78); ANION GAP 8 MEQ/L (5-15); AST (GOT) 31 U/L (15-37); BICARBONATE 27.4 MEQ/L (21.0-32.0); BLOOD UREA NITROGEN 13 MG/DL (7-18); CHLORIDE 99 MEQ/L (98-107); GLOMERULAR FILTRATION RATE 83 ML/MIN (>89); POTASSIUM 3.8 MEQ/L (3.5-5.1); SODIUM (NA) 134 MEQ/L (136-145)
[2016-09-23 07:57] LABS: ALKALINE PHOSPHATASE 131 U/L (45-117); TOTAL BILIRUBIN ADULT 0.5 MG/DL (0.2-1.0)
[2016-09-23 08:10] LABS: HEMO FLAGS AUTO DIFF
[2016-09-23] MEDS: predniSONE 10 MG TAB PO SCH (09:00)
[2016-09-23] MEDS: BUDESONIDE-FORMOTEROL 160/4.5 MCG INHALER INH SCH ×2 (09:00→20:28)
[2016-09-23] MEDS: POTASSIUM CHLORIDE 10 MEQ CONTROLLED RELEASE TAB PO SCH ×2 (09:00→20:26)
[2016-09-23 09:16] LABS: BANDS 12 % (0-6); CORRECTED NUCLEATED RBC 8 /100 WBC (0-0); EOSINOPHILS 1 % (0-4); METAMYELOCYTES 3 % (0-1); MYELOCYTES 6 % (0-0); NEUTROPHIL # MANUAL DIFF 5.1 TH/MM3 (1.8-7.7); POLYS (SEG NEUTROPHILS) 50 % (16-70); WBC DIFF SAMPLE 100
[2016-09-23] MEDS: SUCRALFATE 1 GM TAB PO SCH ×3 (09:16→17:53)
[2016-09-23] MEDS: DILTIAZEM-CD 180 MG CAP ER PO SCH (09:16)
[2016-09-23] MEDS: LORazepam 0.5 MG TAB PO SCH ×2 (09:16→20:27)
[2016-09-23] MEDS: FLUCONAZOLE 200 MG TAB PO SCH (09:16)
[2016-09-23] MEDS: CEFUROXIME AXETIL 500 MG TAB PO SCH ×2 (09:16→20:26)
[2016-09-23] MEDS: THEOPHYLLINE 200 MG EXTENDED RELEASE CAP PO SCH (09:16)
[2016-09-23] MEDS: PANTOPRAZOLE SOD 40 MG DELAYED RELEASE TAB PO SCH (09:16)
[2016-09-23 09:17] LABS: OVALOCYTES 1+ (NORMAL); PLATELET ESTIMATE SMEAR NORMAL (NORMAL); PLATELET MORPHOLOGY NORMAL (NORMAL); POLYCHROMASIA 2.8 % (0.0-1.9); SCAN/DIFF FINAL DIFF MANUAL
[2016-09-23] MEDS: SODIUM CHLORIDE 0.9% FLUSH 5 ML FLUSH FLUSH SCH ×2 (09:19→20:26)
[2016-09-23] MEDS: ONDANSETRON HCL 4 MG/2 ML VIAL IVP PRN ×2 (10:48→12:29)
--- NOTE | 2016-09-23 11:12 | PD.ONC.PN ---
Subjective Subjective Remarks Afebrile overnight. Patient resting comfortably. "Can I go home soon?" States thigh pain is improving. Objective Data Date Time Temp Pulse Resp B/P Pulse Ox O2 Delivery O2 Flow Rate FiO2 09/23/16 09:50 98 Nasal Cannula 2.00 09/23/16 09:30 98 Nasal Cannula 1.00 09/23/16 08:55 97.2 93 18 135/82 94 09/23/16 04:06 96.6 107 20 128/90 96 09/23/16 00:44 96.9 106 20 142/85 99 09/22/16 22:59 150 09/22/16 21:50 Nasal Cannula 2.00 09/22/16 19:30 96.9 102 20 142/84 99 09/22/16 16:32 100 09/22/16 16:00 96.6 96 20 137/97 97 09/22/16 12:00 96.7 120 20 121/97 97 09/23/16 09/23/16 09/23/16 07:00 15:00 23:00 Intake Total 240 ml Output Total 650 ml Balance -410 ml Result Diagram: 09/23/16 0705 09/23/16 0705 Laboratory Results Laboratory Tests Test 09/23/16 07:05 White Blood Count 7.2 TH/MM3 Red Blood Count 3.39 MIL/MM3 Hemoglobin 8.5 GM/DL Hematocrit 26.8 % Mean Corpuscular Volume 78.9 FL Mean Corpuscular Hemoglobin 25.0 PG Mean Corpuscular Hemoglobin 31.6 % Concent Red Cell Distribution Width 26.8 % Platelet Count 252 TH/MM3 Mean Platelet Volume 7.2 FL Neutrophils (%) (Auto) 65.6 % Lymphocytes (%) (Auto) 25.8 % Monocytes (%) (Auto) 6.6 % Eosinophils (%) (Auto) 1.2 % Basophils (%) (Auto) 0.8 % Neutrophils # (Auto) 4.7 TH/MM3 Lymphocytes # (Auto) 1.9 TH/MM3 Monocytes # (Auto) 0.5 TH/MM3 Eosinophils # (Auto) 0.1 TH/MM3 Basophils # (Auto) 0.1 TH/MM3 CBC Comment AUTO DIFF Differential Total Cells 100 Counted Neutrophils % (Manual) 50 % Band Neutrophils % 12 % Lymphocytes % 22 % Monocytes % 6 % Eosinophils % 1 % Neutrophils # (Manual) 5.1 TH/MM3 Metamyelocytes 3 % Myelocytes 6 % Nucleated Red Blood Cells 8 /100 WBC Differential Comment FINAL DIFF MANUAL Platelet Estimate NORMAL Platelet Morphology Comment NORMAL Polychromasia 2.8 % Ovalocytes 1+ Sodium Level 134 MEQ/L Potassium Level 3.8 MEQ/L Chloride Level 99 MEQ/L Carbon Dioxide Level 27.4 MEQ/L Anion Gap 8 MEQ/L Blood Urea Nitrogen 13 MG/DL Creatinine 0.95 MG/DL Estimat Glomerular Filtration 83 ML/MIN Rate Random Glucose 171 MG/DL Calcium Level 8.8 MG/DL Total Bilirubin 0.5 MG/DL Aspartate Amino Transf 31 U/L (AST/SGOT) Alanine Aminotransferase 67 U/L (ALT/SGPT) Alkaline Phosphatase 131 U/L Total Protein 6.1 GM/DL Albumin 3.2 GM/DL Administered Medications Medications (Trade) Dose Ordered Sig/Gabi Route PRN Reason Start Time Stop Time Status Last Admin Dose Admin Atorvastatin Calcium (Lipitor) 20 mg HS PO 08/29/16 21:00 09/22/16 21:17 Budesonide/ Formoterol Fumarate (Symbicort 160-4.5 Inh) 2 puff Q12HR INH 08/29/16 21:00 09/23/16 09:00 Diltiazem HCl (Cardizem Cd) 360 mg DAILY PO 08/30/16 09:00 09/23/16 09:16 Fluconazole (Diflucan) 400 mg DAILY PO 08/30/16 09:00 09/23/16 09:16 Montelukast Sodium (Singulair) 10 mg HS PO 08/29/16 21:00 09/22/16 21:17 Pantoprazole Sodium (Protonix) 40 mg DAILY PO 08/30/16 09:00 09/23/16 09:16 Promethazine HCl/ Codeine (Phenergan-Codeine Liq) 5 ml Q4H PRN PO COUGH AND/OR COLD SYMPTOMS 08/29/16 18:30 09/18/16 16:39 Sucralfate (Carafate) 1 gm TID PO 08/30/16 09:00 09/23/16 09:16 IV Flush (NS Flush) 2 ml UNSCH PRN FLUSH FLUSH AFTER USING IV ACCESS 08/29/16 18:30 09/18/16 06:54 IV Flush (NS Flush) 2 ml BID FLUSH 08/29/16 21:00 09/23/16 09:19 Ondansetron HCl (Zofran Inj) 4 mg Q6H PRN IVP NAUSEA OR VOMITING 08/29/16 18:30 09/23/16 10:48 Lorazepam (Ativan) 0.5 mg BID PO 08/30/16 09:00 09/23/16 09:16 Clonidine (Catapres) 0.1 mg Q6H PRN PO SBP>160, DBP>90 09/02/16 23:45 09/19/16 23:58 IV Flush (NS Flush) See Protocol DAILY IVF 09/05/16 09:00 09/23/16 09:16 Heparin Sodium (Porcine) (Heparin Central Flush) See Protocol DAILY IVF 09/05/16 09:00 09/23/16 09:17 Cefuroxime Axetil (Ceftin) 500 mg Q12HR PO 09/06/16 09:00 09/23/16 09:16 Potassium Chloride (KCl) 10 meq Q12HR PO 09/06/16 21:00 09/23/16 09:00 Theophylline (Samuel-24) 400 mg DAILY PO 09/08/16 09:00 09/23/16 09:16 Promethazine HCl (Phenergan Inj) 12.5 mg Q8H PRN IM NAUESA 09/08/16 20:15 09/22/16 14:28 Tramadol HCl 100 mg 100 mg Q8H PRN PO pain 09/16/16 18:00 09/19/16 21:37 Micafungin Sodium 150 mg/Sodium Chloride 100 ml @ 100 mls/hr Q24H IV 09/18/16 00:00 09/23/16 00:23 Heparin Sodium/ Dextrose (Heparin-D5W Inj) 250 ml @ 0 mls/hr TITRATE IV 09/19/16 16:00 09/23/16 05:10 Acetaminophen/ Hydrocodone Bitart ([place] 7.5-325 Mg) 1 tab Q8H PRN PO PAIN SCALE 6 TO 10 09/19/16 22:45 09/23/16 01:19 Prednisone (Deltasone) 10 mg DAILY PO 09/23/16 09:00 09/23/16 09:00 Objective Remarks GENERAL: Middle aged male lying in bed in nad. SKIN: Warm and dry. HEAD: Normocephalic. EYES: No injection or drainage. NECK: Supple, trachea midline. CARDIOVASCULAR: +S1/S2, tachy RESPIRATORY: scattered wheeze all lung fair. GASTROINTESTINAL: Abdomen soft, non-tender, nondistended. EXTREMITIES: No cyanosis. some bruising and edema, right thigh NEUROLOGICAL: AOx3. normal speech. moving extremities. Assessment/Plan Problem List: (1) Acute hypercapnic respiratory failure Status: Acute (2) Thrombocytopenia Status: Resolved (3) Superficial thrombophlebitis Status: Acute (4) Pulmonary embolism Status: Acute (5) Acute asthma exacerbation Status: Acute (6) Warfarin-induced coagulopathy Status: Acute (7) Septic hip Status: Acute (8) Abscess of hip, right Status: Acute Assessment 51-year-old male with a past medical history of recurrent asthma attacks with recurrent hospital admissions, hypertension, hyperlipidemia, history of pulmonary embolism and DVT and also right hip wound infection who was admitted to the hospital with shortness of breath and exacerbation of asthma. Hematology has been consulted to evaluate this patient who has been on Coumadin for DVT and pulmonary embolism and has been difficult to manage due labile INR. He on he has persistent suboptimal therapeutic levels. 1. Hx of Pulmonary embolism and DVT-- in the setting of a hospital admission in december 2015 2. Labile and difficult to manage INR while on Coumadin 3. Infected right hip wound. 4. Exacerbation of asthma. 5. GIB--resolved. colonoscopy was abandoned due to poor prep. GI signed off-- GIB likely due to hemorrhoids. H/H stable. Plan 1. continue heparin drip 2. monitor CBC Attending Statement The exam, history, and the medical decision-making described in the above note were completed with the assistance of the mid-level provider. I reviewed and agree with the findings presented. I attest that I had a [id number] encounter with the patient on the same day, and personally performed and documented my assessment and findings in the medical record. Discussed with Dr. Woodward. Will start patient on Coumadin and patient will be closely managed by him outpatient for INR management. Problem Qualifiers (1) Acute asthma exacerbation: Qualified Code: J45.51 - Severe persistent asthma with acute exacerbation Berenice Lo Sep 23, 2016 11:12 Reuben Cali MD Sep 23, 2016 23:27
[2016-09-23] MEDS: ALPRAZolam 0.5 MG TAB PO PRN (17:53)
[2016-09-23] MEDS: traMADol HCL 50 MG TAB PO PRN (20:26)
[2016-09-23] MEDS: MONTELUKAST SODIUM 10 MG TAB PO SCH (20:26)
[2016-09-23] MEDS: ATORVASTATIN 20 MG TAB PO SCH (20:27)
[2016-09-23] MEDS ORDERED: DO NOT ADM ANY ANTICOAGULANT DRUGS XX PRN (23:45)
[2016-09-24] VITALS (8 sets, daily range): BP systolic 121–145; BP diastolic 77–97; PULSE 102–117; RESP 20–24; TEMP 94.5–97.7; O2SAT 95–99
[2016-09-24] MEDS: MICAFUNGIN INJ 150 MG in SODIUM CHLORIDE 0.9% INJ 100 ML IV SCH (00:27)
[2016-09-24] MEDS: WARFARIN SOD 2.5 MG TAB PO SCH ×2 (00:31→16:13)
[2016-09-24] MEDS: HEPARIN-D5W INJ 250 ML IV SCH (02:13)
[2016-09-24] MEDS: INSULIN ASPART SUPPLEMENTAL SCALE SQ SCH ×4 (06:43→22:17)
[2016-09-24 07:15] LABS: AUTOMATED NEUTROPHIL # 4.2 TH/MM3 (1.8-7.7); BASOPHIL # 0.1 TH/MM3 (0-0.2); BASOPHIL % 0.8 % (0.0-2.0); EOSINOPHIL # 0.1 TH/MM3 (0-0.4); EOSINOPHIL % 0.8 % (0.0-4.0); HEMATOCRIT 27.1 % (39.0-51.0); LYMPH % 26.1 % (9.0-44.0); LYMPHOCYTE # 1.7 TH/MM3 (1.0-4.8); MEAN CELL VOLUME 78.1 FL (80.0-100.0); MEAN CORPUSCULAR HEMOGLOBIN 25.1 PG (27.0-34.0); MEAN CORPUSCULAR HGB CONC 32.1 % (32.0-36.0); MONO % 8.9 % (0.0-8.0); NEUT % 63.4 % (16.0-70.0); PLATELET COUNT 261 TH/MM3 (150-450); RED BLOOD COUNT 3.47 MIL/MM3 (4.50-5.90); RED CELL DISTRIBUTION WIDTH 25.3 % (11.6-17.2); WHITE BLOOD COUNT 6.6 TH/MM3 (4.0-11.0)
[2016-09-24 07:19] LABS: HEMO FLAGS AUTO DIFF
--- NOTE | 2016-09-24 07:25 | PD.ORT.PN ---
Subjective Pain Scale: 2 Subjective Remarks doing OK Range of Motion able to do SLR and move hip lucy actively with mild discomfort PROM rotation and abduction and flexion to 70 degs tolerated well Distance Walked Hallway x2 yesterday Objective Vitals Vital Signs Date Time Temp Pulse Resp B/P Pulse Ox O2 Delivery O2 Flow Rate FiO2 09/24/16 04:00 97.4 114 20 133/97 95 09/24/16 00:30 Room Air 09/24/16 00:00 94.5 111 22 145/93 96 09/23/16 20:00 96.9 108 20 122/96 96 09/23/16 18:36 97 Nasal Cannula 2.00 09/23/16 17:49 96.9 109 18 140/ 97 09/23/16 16:29 18 09/23/16 12:56 97.1 72 18 140/78 99 09/23/16 12:00 Nasal Cannula 2.00 21 09/23/16 12:00 98 09/23/16 09:50 98 Nasal Cannula 2.00 09/23/16 09:30 98 Nasal Cannula 1.00 09/23/16 08:55 97.2 93 18 135/82 94 I/O 09/23/16 09/23/16 09/23/16 09/24/16 09/24/16 09/24/16 07:00 15:00 23:00 07:00 15:00 23:00 Intake Total 240 ml 1459 ml 360 ml Output Total 650 ml 500 ml 1350 ml 675 ml Balance -410 ml 959 ml -990 ml -675 ml Intake Oral 240 ml 480 ml 360 ml IV Total 979 ml Output Urine Total 650 ml 500 ml 1350 ml 675 ml # Voids 2 # Bowel Movements 1 Result Diagram: 09/24/16 0635 09/23/16 0705 Imaging Last 48 hours Impressions Needle Aspiration Ultrasound 09/18/16 0000 Signed Impressions: Service Date/Time: Sunday, September 18, 2016 12:10 - CONCLUSION: Uncomplicated ultrasound guided aspiration. Elías Hull MD FACR Objective Remarks A,A, and O In recliner.,without pain. Rt hip, softer, no drainage hopefully discharge today with IV macrofungin, and PO diflucan Assessment & Plan Assessment and Plan Right hip stable and improving DC today with home IVAs To see me 2 weeks, COFA Guicho,Shaan MD Sep 24, 2016 07:25
[2016-09-24 07:32] LABS: ANION GAP 8 MEQ/L (5-15); AST (GOT) 38 U/L (15-37); BICARBONATE 28.7 MEQ/L (21.0-32.0); BLOOD UREA NITROGEN 11 MG/DL (7-18); CHLORIDE 99 MEQ/L (98-107); GLOMERULAR FILTRATION RATE 92 ML/MIN (>89); POTASSIUM 3.8 MEQ/L (3.5-5.1); SODIUM (NA) 136 MEQ/L (136-145)
[2016-09-24 07:34] LABS: ALKALINE PHOSPHATASE 135 U/L (45-117); ALT (GPT) 72 U/L (12-78); TOTAL BILIRUBIN ADULT 0.5 MG/DL (0.2-1.0)
[2016-09-24] MEDS: LACTATED RINGER'S 1000 ML IV SCH (08:30)
[2016-09-24 08:57] LABS: APTT (PATIENT) 41.1 SEC (24.3-30.1)
[2016-09-24 09:00] LABS: BANDS 4 % (0-6); CORRECTED NUCLEATED RBC 5 /100 WBC (0-0); EOSINOPHILS 1 % (0-4); METAMYELOCYTES 5 % (0-1); MYELOCYTES 3 % (0-0); NEUTROPHIL # MANUAL DIFF 4.6 TH/MM3 (1.8-7.7); PLATELET ESTIMATE SMEAR NORMAL (NORMAL); PLATELET MORPHOLOGY NORMAL (NORMAL); POLYS (SEG NEUTROPHILS) 57 % (16-70); SCAN/DIFF FINAL DIFF MANUAL; WBC DIFF SAMPLE 100
[2016-09-24] MEDS: DILTIAZEM-CD 180 MG CAP ER PO SCH (09:00)
[2016-09-24 09:01] LABS: OVALOCYTES 1+ (NORMAL)
[2016-09-24] MEDS: BUDESONIDE-FORMOTEROL 160/4.5 MCG INHALER INH SCH ×2 (09:02→22:18)
[2016-09-24] MEDS: CEFUROXIME AXETIL 500 MG TAB PO SCH ×2 (09:02→22:17)
[2016-09-24] MEDS: LORazepam 0.5 MG TAB PO SCH ×2 (09:03→22:17)
[2016-09-24] MEDS: predniSONE 10 MG TAB PO SCH (09:03)
[2016-09-24] MEDS: SODIUM CHLORIDE 0.9% FLUSH 5 ML FLUSH FLUSH SCH ×2 (09:03→22:18)
[2016-09-24] MEDS: PANTOPRAZOLE SOD 40 MG DELAYED RELEASE TAB PO SCH (09:03)
[2016-09-24] MEDS: FLUCONAZOLE 200 MG TAB PO SCH (09:03)
[2016-09-24] MEDS: POTASSIUM CHLORIDE 10 MEQ CONTROLLED RELEASE TAB PO SCH ×2 (09:03→22:17)
[2016-09-24] MEDS: SUCRALFATE 1 GM TAB PO SCH ×3 (09:03→16:13)
[2016-09-24] MEDS: ACETAMINOPHEN/HYDROcodone 325 MG/7.5 MG TAB PO PRN ×2 (09:36→22:16)
--- NOTE | 2016-09-24 10:30 | HHI.FF ---
Infusion Therapy Location of Infusion Therapy: [facility] IV Infusion Order Patient Information Patient Weight 97.3 kg Diagnosis: (1) Septic arthritis Coded Allergies: Tetracycline (Verified Allergy, Severe, throat swells, 08/29/16) Demerol (Verified Allergy, Intermediate, hallucinations, 08/29/16) Administer Medication Micafungin 150 mg IV q 24 hours Start Treatment: Sep 24, 2016 Stop Treatment: Nov 20, 2016 Additional Information Venous access: PICC Line Additional Instructions [x] Peripheral flush and dressing changes per protocol [x] Implanted port and central multi line claims adjuster: * Implanted port: 10 ml Normal Saline followed by 5 ml Heparin 100 units/ml Heparin flush after each use and monthly to maintain. [] May leave port accessed during therapy. [] May leave peripheral site accessed for duration of therapy. [x] If patient has SOB or respiratory distress, check oxygen saturation. If less than 90% or clinical signs of respiratory distress, administer oxygen at 2 L/min. via nasal cannula and notify physician. [x] Anaphylaxis/Reaction orders: * Stop infusion. * Keep IV line open with saline flush. * Notify physician. * Monitor vital signs every 15 minutes until symptoms resolve. * Check Oxygen saturation; Oxygen at 2 L/min. via nasal cannula if less than 90% or clinical signs of respiratory distress. * Administer diphenhydramine (Benadryl) 25 mg IV STAT, (unless patient has received as pre-med). May repeat once, if necessary. * Solu-Cortef 250 mg IVP over 30-60 seconds, use 100 mg vials for each dissolution. * Epinephrine (1mg/1 ml) 0.3 mg subcutaneously or IVP now with any signs of respiratory distress. * Check with physician for new additional pre-med orders if patient is re- challenged or re-treated. [x] May remove PICC line when treatment complete, after confirming with Physician. [x] If the patient is admitted to the hospital, the ED, or transferred via [facility] , complete transfer form including medication reconciliation order sheet. Laboratory Tests Weekly Labs: CBC w/diff, Creatinine, LFT's (Hepatic function test), SED Rate Arturo,Marizol A. MD Sep 24, 2016 10:30
[2016-09-24] MEDS ORDERED: ENOX100P SQ (10:49)
--- NOTE | 2016-09-24 11:38 | HHI.PR ---
Subjective History of Present Illness Patient have nausea/vomiting feel weak and tired have tachycardia still wheezing on oral Prednisone bronchodialtors c/o right hip pain s/p CT Scan of Pelvis shows large collection of fluid orthopedic managing. d/w Orthopedic S/ P US Guided drainage of hematoma. have extremity edema better ..on heparin gtt. holding coumadin. high WBC count normal today. Review of Systems Constitutional Constitutional: Fatigue, Weakness Pulmonary Respiratory: Coughing, Shortness of Breath, Wheezing Cardiology CV Remarks extremity edema. Musculoskeletal MS: Swelling MS Remarks extremity edema better. Allergic/Immunologic Allergic/Immunologic: Asthma Vitals/Results Intake & Output 09/23/16 09/23/16 09/24/16 15:00 23:00 07:00 Intake Total 1459 ml 360 ml Output Total 500 ml 1350 ml 1375 ml Balance 959 ml -990 ml -1375 ml Intake Oral 480 ml 360 ml IV Total 979 ml Output Urine Total 500 ml 1350 ml 1375 ml # Voids 2 # Bowel Movements 1 Vital Signs Vital Signs Date Time Temp Pulse Resp B/P Pulse Ox O2 Delivery O2 Flow Rate FiO2 09/24/16 09:41 98 21.00 09/24/16 08:00 97.4 102 20 125/77 96 09/24/16 07:15 102 09/24/16 04:00 97.4 114 20 133/97 95 09/24/16 00:30 Room Air 09/24/16 00:00 94.5 111 22 145/93 96 09/23/16 23:00 100 09/23/16 20:00 96.9 108 20 122/96 96 09/23/16 18:36 97 Nasal Cannula 2.00 09/23/16 17:49 96.9 109 18 140/ 97 09/23/16 16:29 18 09/23/16 12:56 97.1 72 18 140/78 99 09/23/16 12:00 Nasal Cannula 2.00 21 09/23/16 12:00 98 CBC/BMP: 09/24/16 0635 09/24/16 0635 Lab Results Laboratory Tests Test 09/24/16 09/24/16 06:35 08:35 White Blood Count 6.6 TH/MM3 Red Blood Count 3.47 MIL/MM3 Hemoglobin 8.7 GM/DL Hematocrit 27.1 % Mean Corpuscular Volume 78.1 FL Mean Corpuscular Hemoglobin 25.1 PG Mean Corpuscular Hemoglobin 32.1 % Concent Red Cell Distribution Width 25.3 % Platelet Count 261 TH/MM3 Mean Platelet Volume 7.1 FL Neutrophils (%) (Auto) 63.4 % Lymphocytes (%) (Auto) 26.1 % Monocytes (%) (Auto) 8.9 % Eosinophils (%) (Auto) 0.8 % Basophils (%) (Auto) 0.8 % Neutrophils # (Auto) 4.2 TH/MM3 Lymphocytes # (Auto) 1.7 TH/MM3 Monocytes # (Auto) 0.6 TH/MM3 Eosinophils # (Auto) 0.1 TH/MM3 Basophils # (Auto) 0.1 TH/MM3 CBC Comment AUTO DIFF Differential Total Cells 100 Counted Neutrophils % (Manual) 57 % Band Neutrophils % 4 % Lymphocytes % 24 % Monocytes % 6 % Eosinophils % 1 % Neutrophils # (Manual) 4.6 TH/MM3 Metamyelocytes 5 % Myelocytes 3 % Nucleated Red Blood Cells 5 /100 WBC Differential Comment FINAL DIFF MANUAL Platelet Estimate NORMAL Platelet Morphology Comment NORMAL Ovalocytes 1+ Sodium Level 136 MEQ/L Potassium Level 3.8 MEQ/L Chloride Level 99 MEQ/L Carbon Dioxide Level 28.7 MEQ/L Anion Gap 8 MEQ/L Blood Urea Nitrogen 11 MG/DL Creatinine 0.87 MG/DL Estimat Glomerular Filtration 92 ML/MIN Rate Random Glucose 143 MG/DL Calcium Level 9.4 MG/DL Total Bilirubin 0.5 MG/DL Aspartate Amino Transf 38 U/L (AST/SGOT) Alanine Aminotransferase 72 U/L (ALT/SGPT) Alkaline Phosphatase 135 U/L Total Protein 6.2 GM/DL Albumin 3.3 GM/DL Activated Partial 41.1 SEC Thromboplast Time Physical Exam General General Appearance: Well Developed, Well Nourished, No Acute Distress, Comfortable, Anxious Eyes Eye Exam: Pupils Equal, Sclera White, Extraocular Movement Intact Ears & Nose Ears & Nose Exam: Nasal Mucosa [place] Throat Throat Exam: Oral Mucosa [place] & Moist, Oral Pharynx Normal Neck Neck Exam: Neck Supple, Trachea Midline Pulmonary Resp Exam: Breath Sounds Equal, Rhonchi Resp Remarks bilateral wheezing. Cardiology CV Exam: Regular, Tachycardia Gastrointestinal/Abdomen GI Exam: Soft, Non-Tender, Bowel Sounds Present Musculoskeletal MS Exam: Normal Tone Integumentary Skin Exam: Warm, Dry Skin Remarks right hip wound. Extremeties Extremities Exam: No Edema, Pedal Pulses Palpable, Moderate Edema, Pitting Edema Extremeties Remarks tenderness right hip. Neurologic Neuro Exam: Alert, Awake, Oriented, Speech Clear, Moving All Extremities Psychiatric Psych Exam: Appropriate Responses PUD Prophylasis PUD Prophylaxis: Protonix Assessment/Plan Assessment/Plan Assessment and Plan 1. Acute asthma/ COPD exacerbation with respiratory failure/insufficiency on admission...on bronchodilator + Prednisone... and Antibiotic oral. 2. Coumadin toxicity...resolved.. on Heparin gtt. holding coumadin. 3. 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 4. Tachycardia. 5. Hypertension. 6. History of depression and anxiety. 7. History of DVT and PE. Patient have episode of bleeding from rectum and nose with xarelto discontinued Xarelto. on heparin gtt..+ holding coumadin. 8. Arthritis. 9. History of hyperlipidemia. 10. Gastroesophageal reflux disease (GERD). 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 Sever right hip pain s/p CT Scan of Pelvis shows large collection of fluid orthopedic managing. d/w Orthopedic S/P US Guided drainage of hematoma. on pain medicine. 13. High WBC count normal now. 14. Nausea/Vomiting on Zofran. PLAN: Continue oxygen , keep saturation above 92%. PO steroid Aerosol treatment qid & q2 hrs prn continue with Symbicort twice daily Continue Singulair On Theophylline Antitussives when necessary Continue with Xanax dose 0.5 q 8 hr On PO Ceftin BID. On Diflucan. + Micafungin. ..ID Input noted. Analgesics Wound care on heparin gtt. cont Cardizem Proton pump inhibitor for GI prophylaxis. S/P COLONOSCOPY..POOR PREP. d/w PT Will follow Check CBC with diff CMP PT/INR in AM. Discussed Condition with: Patient Myron Woodward MD Sep 24, 2016 11:38
[2016-09-24] MEDS: ONDANSETRON HCL 4 MG/2 ML VIAL IVP PRN ×2 (12:17→22:15)
--- NOTE | 2016-09-24 12:34 | PD.ONC.PN ---
Subjective Subjective Remarks Afebrile overnight. Patient resting comfortably, wanting to know when he can go home. Objective Data Date Time Temp Pulse Resp B/P Pulse Ox O2 Delivery O2 Flow Rate FiO2 09/24/16 09:41 98 21.00 09/24/16 08:00 97.4 102 20 125/77 96 09/24/16 07:15 102 09/24/16 07:00 Room Air 09/24/16 04:00 97.4 114 20 133/97 95 09/24/16 00:30 Room Air 09/24/16 00:00 94.5 111 22 145/93 96 09/23/16 23:00 100 09/23/16 20:00 96.9 108 20 122/96 96 09/23/16 18:36 97 Nasal Cannula 2.00 09/23/16 17:49 96.9 109 18 140/ 97 09/23/16 16:29 18 09/23/16 12:56 97.1 72 18 140/78 99 09/24/16 09/24/16 09/24/16 07:00 15:00 23:00 Output Total 1375 ml Balance -1375 ml Result Diagram: 09/24/16 0635 09/24/16 0635 Laboratory Results Laboratory Tests Test 09/24/16 09/24/16 06:35 08:35 White Blood Count 6.6 TH/MM3 Red Blood Count 3.47 MIL/MM3 Hemoglobin 8.7 GM/DL Hematocrit 27.1 % Mean Corpuscular Volume 78.1 FL Mean Corpuscular Hemoglobin 25.1 PG Mean Corpuscular Hemoglobin 32.1 % Concent Red Cell Distribution Width 25.3 % Platelet Count 261 TH/MM3 Mean Platelet Volume 7.1 FL Neutrophils (%) (Auto) 63.4 % Lymphocytes (%) (Auto) 26.1 % Monocytes (%) (Auto) 8.9 % Eosinophils (%) (Auto) 0.8 % Basophils (%) (Auto) 0.8 % Neutrophils # (Auto) 4.2 TH/MM3 Lymphocytes # (Auto) 1.7 TH/MM3 Monocytes # (Auto) 0.6 TH/MM3 Eosinophils # (Auto) 0.1 TH/MM3 Basophils # (Auto) 0.1 TH/MM3 CBC Comment AUTO DIFF Differential Total Cells 100 Counted Neutrophils % (Manual) 57 % Band Neutrophils % 4 % Lymphocytes % 24 % Monocytes % 6 % Eosinophils % 1 % Neutrophils # (Manual) 4.6 TH/MM3 Metamyelocytes 5 % Myelocytes 3 % Nucleated Red Blood Cells 5 /100 WBC Differential Comment FINAL DIFF MANUAL Platelet Estimate NORMAL Platelet Morphology Comment NORMAL Ovalocytes 1+ Sodium Level 136 MEQ/L Potassium Level 3.8 MEQ/L Chloride Level 99 MEQ/L Carbon Dioxide Level 28.7 MEQ/L Anion Gap 8 MEQ/L Blood Urea Nitrogen 11 MG/DL Creatinine 0.87 MG/DL Estimat Glomerular Filtration 92 ML/MIN Rate Random Glucose 143 MG/DL Calcium Level 9.4 MG/DL Total Bilirubin 0.5 MG/DL Aspartate Amino Transf 38 U/L (AST/SGOT) Alanine Aminotransferase 72 U/L (ALT/SGPT) Alkaline Phosphatase 135 U/L Total Protein 6.2 GM/DL Albumin 3.3 GM/DL Activated Partial 41.1 SEC Thromboplast Time Administered Medications Medications (Trade) Dose Ordered Sig/Gabi Route PRN Reason Start Time Stop Time Status Last Admin Dose Admin Atorvastatin Calcium (Lipitor) 20 mg HS PO 08/29/16 21:00 09/23/16 20:27 Budesonide/ Formoterol Fumarate (Symbicort 160-4.5 Inh) 2 puff Q12HR INH 08/29/16 21:00 09/24/16 09:02 Diltiazem HCl (Cardizem Cd) 360 mg DAILY PO 08/30/16 09:00 09/24/16 09:00 Fluconazole (Diflucan) 400 mg DAILY PO 08/30/16 09:00 09/24/16 09:03 Montelukast Sodium (Singulair) 10 mg HS PO 08/29/16 21:00 09/23/16 20:26 Pantoprazole Sodium (Protonix) 40 mg DAILY PO 08/30/16 09:00 09/24/16 09:03 Promethazine HCl/ Codeine (Phenergan-Codeine Liq) 5 ml Q4H PRN PO COUGH AND/OR COLD SYMPTOMS 08/29/16 18:30 09/18/16 16:39 Sucralfate (Carafate) 1 gm TID PO 08/30/16 09:00 09/24/16 11:06 IV Flush (NS Flush) 2 ml UNSCH PRN FLUSH FLUSH AFTER USING IV ACCESS 08/29/16 18:30 09/18/16 06:54 IV Flush (NS Flush) 2 ml BID FLUSH 08/29/16 21:00 09/24/16 09:03 Ondansetron HCl (Zofran Inj) 4 mg Q6H PRN IVP NAUSEA OR VOMITING 08/29/16 18:30 09/24/16 12:17 Lorazepam (Ativan) 0.5 mg BID PO 08/30/16 09:00 09/24/16 09:03 Clonidine (Catapres) 0.1 mg Q6H PRN PO SBP>160, DBP>90 09/02/16 23:45 09/19/16 23:58 IV Flush (NS Flush) See Protocol DAILY IVF 09/05/16 09:00 09/24/16 09:04 Heparin Sodium (Porcine) (Heparin Central Flush) See Protocol DAILY IVF 09/05/16 09:00 09/24/16 09:03 Cefuroxime Axetil (Ceftin) 500 mg Q12HR PO 09/06/16 09:00 09/24/16 09:02 Potassium Chloride (KCl) 10 meq Q12HR PO 09/06/16 21:00 09/24/16 09:03 Promethazine HCl (Phenergan Inj) 12.5 mg Q8H PRN IM NAUESA 09/08/16 20:15 09/22/16 14:28 Tramadol HCl 100 mg 100 mg Q8H PRN PO pain 09/16/16 18:00 09/23/16 20:26 Micafungin Sodium 150 mg/Sodium Chloride 100 ml @ 100 mls/hr Q24H IV 09/18/16 00:00 09/24/16 00:27 Heparin Sodium/ Dextrose (Heparin-D5W Inj) 250 ml @ 0 mls/hr TITRATE IV 09/19/16 16:00 09/24/16 02:13 Acetaminophen/ Hydrocodone Bitart (Clarion 7.5-325 Mg) 1 tab Q8H PRN PO PAIN SCALE 6 TO 10 09/19/16 22:45 09/24/16 09:36 Prednisone (Deltasone) 10 mg DAILY PO 09/23/16 09:00 09/24/16 09:03 Warfarin Sodium (Coumadin) 2.5 mg DAILY@16 PO 09/23/16 23:30 1/17/17 00:31 Objective Remarks GENERAL: Middle aged male sitting up in bed. SKIN: Warm and dry. HEAD: Normocephalic. EYES: No injection or drainage. NECK: Supple, trachea midline. CARDIOVASCULAR: +S1/S2, tachy RESPIRATORY: occasional rhonchi GASTROINTESTINAL: Abdomen soft, non-tender, nondistended. EXTREMITIES: No cyanosis. scar tissue, right thigh NEUROLOGICAL: awake and alert, normal speech. moving extremities. Assessment/Plan Problem List: (1) Acute hypercapnic respiratory failure Status: Acute (2) Thrombocytopenia Status: Resolved (3) Superficial thrombophlebitis Status: Acute (4) Pulmonary embolism Status: Acute (5) Acute asthma exacerbation Status: Acute (6) Warfarin-induced coagulopathy Status: Acute (7) Septic hip Status: Acute (8) Abscess of hip, right Status: Acute Assessment 51-year-old male with a past medical history of recurrent asthma attacks with recurrent hospital admissions, hypertension, hyperlipidemia, history of pulmonary embolism and DVT and also right hip wound infection who was admitted to the hospital with shortness of breath and exacerbation of asthma. Hematology has been consulted to evaluate this patient who has been on Coumadin for DVT and pulmonary embolism and has been difficult to manage due labile INR. He on he has persistent suboptimal therapeutic levels. 1. Hx of Pulmonary embolism and DVT-- in the setting of a hospital admission in december 2015 2. Labile and difficult to manage INR while on Coumadin 3. Infected right hip wound. 4. Exacerbation of asthma. 5. GIB--resolved. colonoscopy was abandoned due to poor prep. GI signed off-- GIB likely due to hemorrhoids. H/H stable. Plan 1. d/w Case management--lovenox is covered at 100% for patient. will stop heparin and start Lovenox 2. monitor CBC Attending Statement The exam, history, and the medical decision-making described in the above note were completed with the assistance of the mid-level provider. I reviewed and agree with the findings presented. I attest that I had a [id number] encounter with the patient on the same day, and personally performed and documented my assessment and findings in the medical record. On lovenox and coumadin. check INR in AM. will need overlap of lovenox and coumadin until INR > 2. Can be d/c'd home with lovenox. Problem Qualifiers (1) Acute asthma exacerbation: Qualified Code: J45.51 - Severe persistent asthma with acute exacerbation Berenice Lo Sep 24, 2016 12:34 Reuben Cali MD Sep 24, 2016 20:08
[2016-09-24] MEDS ORDERED: CEFT500T3 PO (14:20)
[2016-09-24] MEDS: PROMETHAZINE/CODEINE 6.25 MG/10 MG/5 ML CUP PO PRN (15:06)
[2016-09-24] MEDS: ENOXAPARIN SODIUM 100 MG/ML SYRINGE SQ SCH (16:21)
--- NOTE | 2016-09-24 20:59 | HHI.IDPN ---
Subjective Subjective Remarks fDelayed entry - pt was seen today around 2 pm R hip pain better breathing better co severe nausea, vomiting, states he vomited mult times today afebrile Recent CT of R hip showed large fluid collection which was aspirated and looks sterile - routine clx final; fungal ne so far Antibiotics cefuroxime started 09/06 Micafungin Fluconazol Allergies: Coded Allergies: Tetracycline (Verified Allergy, Severe, throat swells, 08/29/16) Demerol (Verified Allergy, Intermediate, hallucinations, 08/29/16) Objective . Vital Signs Date Time Temp Pulse Resp B/P Pulse Ox O2 Delivery O2 Flow Rate FiO2 09/24/16 19:30 104 09/24/16 11:30 97.1 102 20 121/84 99 09/24/16 09:41 98 21.00 09/24/16 08:00 97.4 102 20 125/77 96 09/24/16 07:15 102 09/24/16 07:00 Room Air 09/24/16 04:00 97.4 114 20 133/97 95 09/24/16 00:30 Room Air 09/24/16 00:00 94.5 111 22 145/93 96 09/23/16 23:00 100 09/23/16 09/23/16 09/24/16 15:00 23:00 07:00 Intake Total 1459 ml 360 ml Output Total 500 ml 1350 ml 1375 ml Balance 959 ml -990 ml -1375 ml Intake Oral 480 ml 360 ml IV Total 979 ml Output Urine Total 500 ml 1350 ml 1375 ml # Voids 2 # Bowel Movements 1 . Laboratory Tests Test 09/23/16 09/24/16 07:05 06:35 White Blood Count 7.2 TH/MM3 6.6 TH/MM3 Red Blood Count 3.39 MIL/MM3 3.47 MIL/MM3 Hemoglobin 8.5 GM/DL 8.7 GM/DL Hematocrit 26.8 % 27.1 % Mean Corpuscular Volume 78.9 FL 78.1 FL Mean Corpuscular Hemoglobin 25.0 PG 25.1 PG Mean Corpuscular Hemoglobin 31.6 % 32.1 % Concent Red Cell Distribution Width 26.8 % 25.3 % Platelet Count 252 TH/MM3 261 TH/MM3 Mean Platelet Volume 7.2 FL 7.1 FL Neutrophils (%) (Auto) 65.6 % 63.4 % Lymphocytes (%) (Auto) 25.8 % 26.1 % Monocytes (%) (Auto) 6.6 % 8.9 % Eosinophils (%) (Auto) 1.2 % 0.8 % Basophils (%) (Auto) 0.8 % 0.8 % Neutrophils # (Auto) 4.7 TH/MM3 4.2 TH/MM3 Lymphocytes # (Auto) 1.9 TH/MM3 1.7 TH/MM3 Monocytes # (Auto) 0.5 TH/MM3 0.6 TH/MM3 Eosinophils # (Auto) 0.1 TH/MM3 0.1 TH/MM3 Basophils # (Auto) 0.1 TH/MM3 0.1 TH/MM3 CBC Comment AUTO DIFF AUTO DIFF Differential Total Cells 100 100 Counted Neutrophils % (Manual) 50 % 57 % Band Neutrophils % 12 % 4 % Lymphocytes % 22 % 24 % Monocytes % 6 % 6 % Eosinophils % 1 % 1 % Neutrophils # (Manual) 5.1 TH/MM3 4.6 TH/MM3 Metamyelocytes 3 % 5 % Myelocytes 6 % 3 % Nucleated Red Blood Cells 8 /100 WBC 5 /100 WBC Differential Comment FINAL DIFF FINAL DIFF MANUAL MANUAL Platelet Estimate NORMAL NORMAL Platelet Morphology Comment NORMAL NORMAL Polychromasia 2.8 % Ovalocytes 1+ 1+ Laboratory Tests Test 09/23/16 09/24/16 07:05 06:35 Sodium Level 134 MEQ/L 136 MEQ/L Potassium Level 3.8 MEQ/L 3.8 MEQ/L Chloride Level 99 MEQ/L 99 MEQ/L Carbon Dioxide Level 27.4 MEQ/L 28.7 MEQ/L Anion Gap 8 MEQ/L 8 MEQ/L Blood Urea Nitrogen 13 MG/DL 11 MG/DL Creatinine 0.95 MG/DL 0.87 MG/DL Estimat Glomerular Filtration 83 ML/MIN 92 ML/MIN Rate Random Glucose 171 MG/DL 143 MG/DL Calcium Level 8.8 MG/DL 9.4 MG/DL Total Bilirubin 0.5 MG/DL 0.5 MG/DL Aspartate Amino Transf 31 U/L 38 U/L (AST/SGOT) Alanine Aminotransferase 67 U/L 72 U/L (ALT/SGPT) Alkaline Phosphatase 131 U/L 135 U/L Total Protein 6.1 GM/DL 6.2 GM/DL Albumin 3.2 GM/DL 3.3 GM/DL Imaging Last Impressions Needle Aspiration Ultrasound 09/18/16 0000 Signed Impressions: Service Date/Time: Sunday, September 18, 2016 12:10 - CONCLUSION: Uncomplicated ultrasound guided aspiration. Elías Hull MD FACR Pelvis CT 09/17/16 0000 Signed Impressions: Service Date/Time: Saturday, September 17, 2016 10:53 - CONCLUSION: Large complex fluid collection adjacent to the right femoral prosthesis with layering high density material identified dependently. Valentina Hollis MD Chest X-Ray 09/06/16 0600 Signed Impressions: Service Date/Time: Tuesday, September 06, 2016 05:15 - CONCLUSION: No acute disease. Davion Carranza MD Hip X-Ray 09/03/16 0000 Signed Impressions: Service Date/Time: Saturday, September 03, 2016 11:41 - CONCLUSION: 1. No acute fracture or joint dislocation. 2. Right hip prosthesis appears to be grossly intact. Tyler Mast MD CT Angiography 08/29/16 1609 Signed Impressions: Service Date/Time: August 16:50 - CONCLUSION: No evidence of pulmonary embolism. Minimal bibasilar atelectasis. Cardiomegaly and coronary artery calcifications. Samuel King MD Physical Exam CONSTITUTIONAL/GENERAL: This is an obese patient, in no apparent distress. SKIN: No jaundice, rashes, or lesions. Skin temperature appropriate. Not diaphoretic. EYES: Pupils equal and round and reactive. Extraocular motions intact. No scleral icterus. No injection or drainage. Fundi not examined. ENT: Oral mucosae without visible erythema, exudates, masses, or lesions. CARDIOVASCULAR: Regular rate and rhythm without murmurs, gallops, or rubs. No JVD. Peripheral pulses symmetric. RESPIRATORY/CHEST: Symmetric, unlabored respirations. No wheezing to auscultation. Breath sounds remain decreased GASTROINTESTINAL: Abdomen soft, globular non-tender, nondistended. No hepato- splenomegaly, or palpable masses. MUSCULOSKELETAL: Extremities without clubbing, cyanosis, or edema. Incision over R hip healed healed, no drainage resolving ecchymoses and induration around incision mostly cw hematoma No erythema Decreased ROM 2/2 pain NEUROLOGICAL: Awake and alert. Motor and sensory grossly within normal limits. Follows commands. Cognitively sharp. Moves all extremities. 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 medx contributing leukocytosis - imroved New issue -0 nausea, vomiting - cont fluconazol x 2mos - cont micafungin x 2 mos - fu clinically - monitor LFTs - monitor fluid collection fungal clx untill final - surgery in case of + fluid clx - dc ceftin - chk LFTs, lipase, amylase ok to dc from ID standpoint once issue with acute nausea/vomiting resolves Dw Walker Garza and Marizol Xie MD Sep 24, 2016 20:59
[2016-09-24] MEDS: MONTELUKAST SODIUM 10 MG TAB PO SCH (22:17)
[2016-09-24] MEDS: ATORVASTATIN 20 MG TAB PO SCH (22:17)
[2016-09-25] VITALS (9 sets, daily range): BP systolic 123–148; BP diastolic 62–91; PULSE 88–112; RESP 18–22; TEMP 96.8–98.7; O2SAT 95–100
[2016-09-25] MEDS: MICAFUNGIN INJ 150 MG in SODIUM CHLORIDE 0.9% INJ 100 ML IV SCH ×2 (00:05→23:54)
[2016-09-25] MEDS: ENOXAPARIN SODIUM 100 MG/ML SYRINGE SQ SCH ×2 (04:21→16:32)
--- NOTE | 2016-09-25 05:08 | HHI.PR ---
Subjective History of Present Illness Patient have nausea/vomiting feel weak and tired have tachycardia still wheezing on oral Prednisone bronchodialtors c/o right hip pain s/p CT Scan of Pelvis shows large collection of fluid orthopedic managing. d/w Orthopedic S/ P US Guided drainage of hematoma. have extremity edema better ..on heparin gtt. holding coumadin. high WBC count normal today..OK TO DC Home today. Review of Systems Constitutional Constitutional: Fatigue, Weakness Pulmonary Respiratory: Coughing, Shortness of Breath, Wheezing Cardiology CV Remarks extremity edema. Musculoskeletal MS: Swelling MS Remarks extremity edema better. Allergic/Immunologic Allergic/Immunologic: Asthma Vitals/Results Intake & Output 09/24/16 09/24/16 09/25/16 15:00 23:00 07:00 Intake Total 625 ml Output Total 653 ml 975 ml Balance -28 ml -975 ml Intake Oral 625 ml Output Urine Total 653 ml 975 ml # Bowel Movements 2 Vital Signs Vital Signs Date Time Temp Pulse Resp B/P Pulse Ox O2 Delivery O2 Flow Rate FiO2 09/25/16 04:00 98.7 94 20 123/84 95 09/25/16 01:25 Room Air 09/25/16 00:00 97.2 110 22 148/87 97 09/24/16 20:00 97.7 117 24 142/89 97 09/24/16 19:30 104 09/24/16 11:30 97.1 102 20 121/84 99 09/24/16 09:41 98 21.00 09/24/16 08:00 97.4 102 20 125/77 96 09/24/16 07:15 102 09/24/16 07:00 Room Air CBC/BMP: 09/24/16 0635 09/24/16 0635 Lab Results Laboratory Tests Test 09/24/16 09/24/16 06:35 08:35 White Blood Count 6.6 TH/MM3 Red Blood Count 3.47 MIL/MM3 Hemoglobin 8.7 GM/DL Hematocrit 27.1 % Mean Corpuscular Volume 78.1 FL Mean Corpuscular Hemoglobin 25.1 PG Mean Corpuscular Hemoglobin 32.1 % Concent Red Cell Distribution Width 25.3 % Platelet Count 261 TH/MM3 Mean Platelet Volume 7.1 FL Neutrophils (%) (Auto) 63.4 % Lymphocytes (%) (Auto) 26.1 % Monocytes (%) (Auto) 8.9 % Eosinophils (%) (Auto) 0.8 % Basophils (%) (Auto) 0.8 % Neutrophils # (Auto) 4.2 TH/MM3 Lymphocytes # (Auto) 1.7 TH/MM3 Monocytes # (Auto) 0.6 TH/MM3 Eosinophils # (Auto) 0.1 TH/MM3 Basophils # (Auto) 0.1 TH/MM3 CBC Comment AUTO DIFF Differential Total Cells 100 Counted Neutrophils % (Manual) 57 % Band Neutrophils % 4 % Lymphocytes % 24 % Monocytes % 6 % Eosinophils % 1 % Neutrophils # (Manual) 4.6 TH/MM3 Metamyelocytes 5 % Myelocytes 3 % Nucleated Red Blood Cells 5 /100 WBC Differential Comment FINAL DIFF MANUAL Platelet Estimate NORMAL Platelet Morphology Comment NORMAL Ovalocytes 1+ Sodium Level 136 MEQ/L Potassium Level 3.8 MEQ/L Chloride Level 99 MEQ/L Carbon Dioxide Level 28.7 MEQ/L Anion Gap 8 MEQ/L Blood Urea Nitrogen 11 MG/DL Creatinine 0.87 MG/DL Estimat Glomerular Filtration 92 ML/MIN Rate Random Glucose 143 MG/DL Calcium Level 9.4 MG/DL Total Bilirubin 0.5 MG/DL Aspartate Amino Transf 38 U/L (AST/SGOT) Alanine Aminotransferase 72 U/L (ALT/SGPT) Alkaline Phosphatase 135 U/L Total Protein 6.2 GM/DL Albumin 3.3 GM/DL Activated Partial 41.1 SEC Thromboplast Time Physical Exam General General Appearance: Well Developed, Well Nourished, No Acute Distress, Comfortable, Anxious Eyes Eye Exam: Pupils Equal, Sclera White, Extraocular Movement Intact Ears & Nose Ears & Nose Exam: Nasal Mucosa [place] Throat Throat Exam: Oral Mucosa [place] & Moist, Oral Pharynx Normal Neck Neck Exam: Neck Supple, Trachea Midline Pulmonary Resp Exam: Breath Sounds Equal, Rhonchi Resp Remarks bilateral wheezing. Cardiology CV Exam: Regular, Tachycardia Gastrointestinal/Abdomen GI Exam: Soft, Non-Tender, Bowel Sounds Present Musculoskeletal MS Exam: Normal Tone Integumentary Skin Exam: Warm, Dry Skin Remarks right hip wound. Extremeties Extremities Exam: No Edema, Pedal Pulses Palpable, Moderate Edema, Pitting Edema Extremeties Remarks tenderness right hip. Neurologic Neuro Exam: Alert, Awake, Oriented, Speech Clear, Moving All Extremities Psychiatric Psych Exam: Appropriate Responses PUD Prophylasis PUD Prophylaxis: Protonix Assessment/Plan Assessment/Plan Assessment and Plan 1. Acute asthma/ COPD exacerbation with respiratory failure/insufficiency on admission...on bronchodilator + Prednisone... and Antibiotic oral. 2. Coumadin toxicity...resolved.. on Heparin gtt. holding coumadin. 3. 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 4. Tachycardia. 5. Hypertension. 6. History of depression and anxiety. 7. History of DVT and PE. Patient have episode of bleeding from rectum and nose with xarelto discontinued Xarelto. on heparin gtt..+ holding coumadin. 8. Arthritis. 9. History of hyperlipidemia. 10. Gastroesophageal reflux disease (GERD). 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 Sever right hip pain s/p CT Scan of Pelvis shows large collection of fluid orthopedic managing. d/w Orthopedic S/P US Guided drainage of hematoma. on pain medicine. 13. High WBC count normal now. 14. Nausea/Vomiting on Zofran. PLAN: Continue oxygen , keep saturation above 92%. PO steroid Aerosol treatment qid & q2 hrs prn continue with Symbicort twice daily Continue Singulair On Theophylline Antitussives when necessary Continue with Xanax dose 0.5 q 8 hr On PO Ceftin BID. On Diflucan. + Micafungin. ..ID Input noted. Analgesics Wound care on heparin gtt. cont Cardizem Proton pump inhibitor for GI prophylaxis. S/P COLONOSCOPY..POOR PREP. d/w PT OK TO DC Home today. f/u with PCP/GI/CARDIOLOGY/ORTHOPEDIC/PULMONARY 1 WEEK Discussed Condition with: Patient Myron Woodward MD Sep 25, 2016 05:07
[2016-09-25] MEDS: ONDANSETRON HCL 4 MG/2 ML VIAL IVP PRN ×3 (06:07→18:20)
[2016-09-25] MEDS: ACETAMINOPHEN/HYDROcodone 325 MG/7.5 MG TAB PO PRN ×3 (06:08→18:20)
[2016-09-25] MEDS: INSULIN ASPART SUPPLEMENTAL SCALE SQ SCH ×4 (06:15→21:28)
[2016-09-25] MEDS: LACTATED RINGER'S 1000 ML IV SCH (08:30)
[2016-09-25] MEDS: predniSONE 10 MG TAB PO SCH (08:41)
[2016-09-25] MEDS: SUCRALFATE 1 GM TAB PO SCH ×3 (08:41→16:33)
[2016-09-25] MEDS: CEFUROXIME AXETIL 500 MG TAB PO SCH ×2 (08:41→21:28)
[2016-09-25] MEDS: PANTOPRAZOLE SOD 40 MG DELAYED RELEASE TAB PO SCH (08:41)
[2016-09-25] MEDS: DILTIAZEM-CD 180 MG CAP ER PO SCH (08:42)
[2016-09-25] MEDS: FLUCONAZOLE 200 MG TAB PO SCH (08:42)
[2016-09-25] MEDS: POTASSIUM CHLORIDE 10 MEQ CONTROLLED RELEASE TAB PO SCH ×2 (08:42→21:28)
[2016-09-25] MEDS: LORazepam 0.5 MG TAB PO SCH ×2 (08:42→21:27)
[2016-09-25] MEDS: BUDESONIDE-FORMOTEROL 160/4.5 MCG INHALER INH SCH ×2 (08:43→21:27)
[2016-09-25] MEDS: SODIUM CHLORIDE 0.9% FLUSH 5 ML FLUSH FLUSH SCH ×2 (08:43→21:27)
--- NOTE | 2016-09-25 12:16 | PD.ONC.PN ---
Subjective Subjective Remarks Afebrile overnight. Patient resting comfortably without complaint. He is tolerating lovenox injections. Objective Data Date Time Temp Pulse Resp B/P Pulse Ox O2 Delivery O2 Flow Rate FiO2 09/25/16 08:00 96.8 88 18 143/91 98 09/25/16 07:15 91 09/25/16 04:00 98.7 94 20 123/84 95 09/25/16 01:25 Room Air 09/25/16 00:00 97.2 110 22 148/87 97 09/24/16 20:00 97.7 117 24 142/89 97 09/24/16 19:30 104 09/25/16 09/25/16 09/25/16 07:00 15:00 23:00 Intake Total 240 ml Output Total 1875 ml Balance -1635 ml Result Diagram: 09/24/1635 09/24/16 0635 Administered Medications Medications (Trade) Dose Ordered Sig/Gabi Route PRN Reason Start Time Stop Time Status Last Admin Dose Admin Atorvastatin Calcium (Lipitor) 20 mg HS PO 08/29/16 21:00 09/24/16 22:17 Budesonide/ Formoterol Fumarate (Symbicort 160-4.5 Inh) 2 puff Q12HR INH 08/29/16 21:00 09/25/16 08:43 Diltiazem HCl (Cardizem Cd) 360 mg DAILY PO 08/30/16 09:00 09/25/16 08:42 Fluconazole (Diflucan) 400 mg DAILY PO 08/30/16 09:00 09/25/16 08:42 Montelukast Sodium (Singulair) 10 mg HS PO 08/29/16 21:00 09/24/16 22:17 Pantoprazole Sodium (Protonix) 40 mg DAILY PO 08/30/16 09:00 09/25/16 08:41 Promethazine HCl/ Codeine (Phenergan-Codeine Liq) 5 ml Q4H PRN PO COUGH AND/OR COLD SYMPTOMS 08/29/16 18:30 09/24/16 15:06 Sucralfate (Carafate) 1 gm TID PO 08/30/16 09:00 09/25/16 11:08 IV Flush (NS Flush) 2 ml UNSCH PRN FLUSH FLUSH AFTER USING IV ACCESS 08/29/16 18:30 09/18/16 06:54 IV Flush (NS Flush) 2 ml BID FLUSH 08/29/16 21:00 09/25/16 08:43 Ondansetron HCl (Zofran Inj) 4 mg Q6H PRN IVP NAUSEA OR VOMITING 08/29/16 18:30 09/25/16 08:42 Lorazepam (Ativan) 0.5 mg BID PO 08/30/16 09:00 09/25/16 08:42 Clonidine (Catapres) 0.1 mg Q6H PRN PO SBP>160, DBP>90 09/02/16 23:45 09/19/16 23:58 IV Flush (NS Flush) See Protocol DAILY IVF 09/05/16 09:00 09/25/16 08:43 Heparin Sodium (Porcine) (Heparin Central Flush) See Protocol DAILY IVF 09/05/16 09:00 09/25/16 08:43 Cefuroxime Axetil (Ceftin) 500 mg Q12HR PO 09/06/16 09:00 09/25/16 08:41 Potassium Chloride (KCl) 10 meq Q12HR PO 09/06/16 21:00 09/25/16 08:42 Promethazine HCl (Phenergan Inj) 12.5 mg Q8H PRN IM NAUESA 09/08/16 20:15 09/22/16 14:28 Tramadol HCl 100 mg 100 mg Q8H PRN PO pain 09/16/16 18:00 09/23/16 20:26 Micafungin Sodium/ Sodium Chloride (Mycamine Inj/NS Inj) 100 ml @ 100 mls/hr Q24H IV 09/18/16 00:00 09/25/16 00:05 Acetaminophen/ Hydrocodone Bitart ([place] 7.5-325 Mg) 1 tab Q8H PRN PO PAIN SCALE 6 TO 10 09/19/16 22:45 09/25/16 08:41 Prednisone (Deltasone) 10 mg DAILY PO 09/23/16 09:00 09/25/16 08:41 Warfarin Sodium (Coumadin) 2.5 mg DAILY@16 PO 09/23/16 23:30 09/24/16 16:13 Enoxaparin Sodium (Lovenox Inj) 100 mg Q12H SQ 09/24/16 16:00 09/25/16 04:21 Objective Remarks GENERAL: Middle aged male sitting up in bed in nad. SKIN: Warm and dry. HEAD: Normocephalic. EYES: No injection or drainage. NECK: Supple, trachea midline. CARDIOVASCULAR: +S1/S2 RESPIRATORY: occasional wheeze. diminished at bases. GASTROINTESTINAL: Abdomen soft, non-tender, nondistended. EXTREMITIES: No cyanosis. scar on right thigh. NEUROLOGICAL: awake and alert, normal speech. moving extremities. Assessment/Plan Problem List: (1) Acute hypercapnic respiratory failure Status: Acute (2) Thrombocytopenia Status: Resolved (3) Superficial thrombophlebitis Status: Acute (4) Pulmonary embolism Status: Acute (5) Acute asthma exacerbation Status: Acute (6) Warfarin-induced coagulopathy Status: Acute (7) Septic hip Status: Acute (8) Abscess of hip, right Status: Acute Assessment 51-year-old male with a past medical history of recurrent asthma attacks with recurrent hospital admissions, hypertension, hyperlipidemia, history of pulmonary embolism and DVT and also right hip wound infection who was admitted to the hospital with shortness of breath and exacerbation of asthma. Hematology has been consulted to evaluate this patient who has been on Coumadin for DVT and pulmonary embolism and has been difficult to manage due labile INR. He on he has persistent suboptimal therapeutic levels. 1. Hx of Pulmonary embolism and DVT-- in the setting of a hospital admission in december 2015 2. Labile and difficult to manage INR while on Coumadin 3. Infected right hip wound. 4. Exacerbation of asthma. 5. GIB--resolved. colonoscopy was abandoned due to poor prep. GI signed off-- GIB likely due to hemorrhoids. H/H stable. Plan 1. continue Lovenox bridge to coumadin 2. clear for discharge Attending Statement The exam, history, and the medical decision-making described in the above note were completed with the assistance of the mid-level provider. I reviewed and agree with the findings presented. I attest that I had a [id number] encounter with the patient on the same day, and personally performed and documented my assessment and findings in the medical record. D/C home with Lovenox and Coumadin. Patient to f/u with Dr. Woodward for INR check. Problem Qualifiers (1) Acute asthma exacerbation: Qualified Code: J45.51 - Severe persistent asthma with acute exacerbation Berenice Lo Sep 25, 2016 12:16 Reuben Cali MD Sep 25, 2016 22:39
[2016-09-25 12:33] LABS: INTERNATIONAL NORMALIZED RATIO 1.1 RATIO; PROTHROMBIN TIME - PATIENT 12.6 SEC (9.8-11.6)
[2016-09-25] MEDS ORDERED: ULTR50TA5 PO (14:58)
[2016-09-25] MEDS ORDERED: LORA-392 PO (14:58)
[2016-09-25] MEDS ORDERED: POTA-243 PO (14:58)
[2016-09-25] MEDS ORDERED: PRED10 PO (14:58)
[2016-09-25] MEDS ORDERED: COUM2.5T PO (14:58)
--- NOTE | 2016-09-25 15:01 | HHI.FF ---
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 My clinical findings support the need for the requested home health care services because: Ltd mobility - disease progression Patient has SOB Deconditioned w/ increased weakness Limited ability to care for self I certify that my clinical findings support that this patient is homebound because: Hx COPD- exertion dyspnea/weakness Unsafe to leave home unassisted Myron Woodward MD Sep 25, 2016 15:01
[2016-09-25] MEDS: WARFARIN SOD 2.5 MG TAB PO SCH (16:33)
[2016-09-25] MEDS: RESP: ALBUTEROL 2.5 MG/3 ML NEB (PRN) NEB (20:46)
[2016-09-25] MEDS: MONTELUKAST SODIUM 10 MG TAB PO SCH (21:28)
[2016-09-25] MEDS: ATORVASTATIN 20 MG TAB PO SCH (21:28)
[2016-09-26 00:25] VITALS: BP 150/96; PULSE 95; RESP 19; TEMP 96.4; O2SAT 99
[2016-09-26] MEDS: ENOXAPARIN SODIUM 100 MG/ML SYRINGE SQ SCH (04:00)
[2016-09-26 05:11] VITALS: BP 137/87; PULSE 111; RESP 19; TEMP 97.7; O2SAT 98
[2016-09-26] MEDS: ACETAMINOPHEN/HYDROcodone 325 MG/7.5 MG TAB PO PRN (05:48)
[2016-09-26] MEDS: INSULIN ASPART SUPPLEMENTAL SCALE SQ SCH ×2 (05:54→11:00)
--- NOTE | 2016-09-26 08:16 | HHI.PR ---
Subjective History of Present Illness Patient nausea/vomiting resolved.. feel weak and tired wheezing better on oral Prednisone bronchodialtors c/o right hip pain .OK TO DC Home today. Review of Systems Constitutional Constitutional: Fatigue, Weakness Pulmonary Respiratory: Coughing, Shortness of Breath, Wheezing Cardiology CV Remarks extremity edema. Musculoskeletal MS: Swelling MS Remarks extremity edema better. Allergic/Immunologic Allergic/Immunologic: Asthma Vitals/Results Intake & Output 09/25/16 09/25/16 09/26/16 15:00 23:00 07:00 Intake Total 725 ml 420 ml Output Total 1700 ml Balance 725 ml -1280 ml Intake Oral 725 ml 420 ml Output Urine Total 1700 ml Vital Signs Vital Signs Date Time Temp Pulse Resp B/P Pulse Ox O2 Delivery O2 Flow Rate FiO2 09/26/16 05:11 97.7 111 19 137/87 98 09/26/16 00:25 96.4 95 19 150/96 99 09/26/16 00:15 Room Air 09/25/16 20:23 97.4 112 19 130/91 98 09/25/16 18:17 97 21 09/25/16 16:00 98.3 96 19 139/86 97 09/25/16 12:00 96.9 97 20 138/62 100 09/25/16 10:25 96 21 CBC/BMP: 09/25/16 1210 09/24/16 0635 Lab Results Laboratory Tests Test 09/25/16 12:10 Hemoglobin 8.6 GM/DL Hematocrit 27.0 % Prothrombin Time 12.6 SEC Prothromb Time International 1.1 RATIO Ratio Lipase 169 U/L Physical Exam General General Appearance: Well Developed, Well Nourished, No Acute Distress, Comfortable, Anxious Eyes Eye Exam: Pupils Equal, Sclera White, Extraocular Movement Intact Ears & Nose Ears & Nose Exam: Nasal Mucosa [place] Throat Throat Exam: Oral Mucosa [place] & Moist, Oral Pharynx Normal Neck Neck Exam: Neck Supple, Trachea Midline Pulmonary Resp Exam: Breath Sounds Equal, Rhonchi Resp Remarks bilateral wheezing. Cardiology CV Exam: Regular, Tachycardia Gastrointestinal/Abdomen GI Exam: Soft, Non-Tender, Bowel Sounds Present Musculoskeletal MS Exam: Normal Tone Integumentary Skin Exam: Warm, Dry Skin Remarks right hip wound. Extremeties Extremities Exam: No Edema, Pedal Pulses Palpable, Moderate Edema, Pitting Edema Extremeties Remarks tenderness right hip. Neurologic Neuro Exam: Alert, Awake, Oriented, Speech Clear, Moving All Extremities Psychiatric Psych Exam: Appropriate Responses PUD Prophylasis PUD Prophylaxis: Protonix Assessment/Plan Assessment/Plan Assessment and Plan 1. Acute asthma/ COPD exacerbation with respiratory failure/insufficiency on admission...on bronchodilator + Prednisone... and Antibiotic oral. 2. Coumadin toxicity...resolved.. on Heparin gtt. holding coumadin. 3. 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 4. Tachycardia. 5. Hypertension. 6. History of depression and anxiety. 7. History of DVT and PE. Patient have episode of bleeding from rectum and nose with xarelto discontinued Xarelto. on heparin gtt..+ holding coumadin. 8. Arthritis. 9. History of hyperlipidemia. 10. Gastroesophageal reflux disease (GERD). 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 Sever right hip pain s/p CT Scan of Pelvis shows large collection of fluid orthopedic managing. d/w Orthopedic S/P US Guided drainage of hematoma. on pain medicine. 13. High WBC count normal now. 14. Nausea/Vomiting on Zofran. PLAN: Continue oxygen , keep saturation above 92%. PO steroid Aerosol treatment qid & q2 hrs prn continue with Symbicort twice daily Continue Singulair On Theophylline Antitussives when necessary Continue with Xanax dose 0.5 q 8 hr On PO Ceftin BID. On Diflucan. + Micafungin. ..ID Input noted. Analgesics Wound care on heparin gtt. cont Cardizem Proton pump inhibitor for GI prophylaxis. S/P COLONOSCOPY..POOR PREP. d/w PT ok to dc home today. f/u with PCP/GI/Cardiology/Hematology/ Pulmonary 1 week. Discussed Condition with: Patient Myron Woodward MD Sep 26, 2016 08:16 Myron Woodward MD Sep 26, 2016 08:16
[2016-09-26 08:25] VITALS: BP 135/83; PULSE 99; RESP 20; TEMP 96.6; O2SAT 95
[2016-09-26] MEDS: DILTIAZEM-CD 180 MG CAP ER PO SCH (08:32)
[2016-09-26] MEDS: PANTOPRAZOLE SOD 40 MG DELAYED RELEASE TAB PO SCH (08:33)
[2016-09-26] MEDS: FLUCONAZOLE 200 MG TAB PO SCH (08:33)
[2016-09-26] MEDS: predniSONE 10 MG TAB PO SCH (08:33)
[2016-09-26] MEDS: SUCRALFATE 1 GM TAB PO SCH ×2 (08:33→12:04)
[2016-09-26] MEDS: POTASSIUM CHLORIDE 10 MEQ CONTROLLED RELEASE TAB PO SCH (08:33)
[2016-09-26] MEDS: LORazepam 0.5 MG TAB PO SCH (08:33)
[2016-09-26] MEDS: CEFUROXIME AXETIL 500 MG TAB PO SCH (08:33)
[2016-09-26] MEDS: BUDESONIDE-FORMOTEROL 160/4.5 MCG INHALER INH SCH (08:38)
[2016-09-26] MEDS: SODIUM CHLORIDE 0.9% FLUSH 5 ML FLUSH FLUSH SCH (09:00)
[2016-09-26 09:15] VITALS: O2SAT 98
[2016-09-26] MEDS: cloNIDine HCL 0.1 MG TAB PO PRN (12:04)
[2016-09-26] MEDS: ONDANSETRON HCL 4 MG/2 ML VIAL IVP PRN (12:06)
[2016-09-26 13:12] VITALS: BP 157/104; PULSE 112; RESP 20; TEMP 96.3; O2SAT 97
--- NOTE | 2016-09-26 21:15 | PD.ONC.PN ---
Subjective Subjective Remarks wants to go home on Lovenox and Coumadin o/p f/u with Dr. Woodward for Coumadin monitoring would need to check INR tomorrow and on Friday Objective Data Date Time Temp Pulse Resp B/P Pulse Ox O2 Delivery O2 Flow Rate FiO2 09/26/16 13:12 96.3 112 20 157/104 97 09/26/16 09:55 Room Air 09/26/16 09:15 98 21 09/26/16 08:25 96.6 99 20 135/83 95 09/26/16 05:11 97.7 111 19 137/87 98 09/26/16 00:25 96.4 95 19 150/96 99 09/26/16 00:15 Room Air 09/26/16 09/26/16 09/26/16 07:00 15:00 23:00 Intake Total 420 ml Output Total 1700 ml Balance -1280 ml Result Diagram: 09/25/16 1210 09/24/16 0635 Objective Remarks GENERALnad SKIN: Warm and dry. NECK: Supple, trachea midline. No JVD or lymphadenopathy. LYMPHATIC: No adenopathy. CARDIOVASCULAR: Regular rate and rhythm without murmurs. RESPIRATORY: Breath sounds equal bilaterally. No accessory muscle use. GASTROINTESTINAL: Abdomen soft, non-tender, nondistended. EXTREMITIES: edematous Assessment/Plan Problem List: (1) Acute hypercapnic respiratory failure Status: Acute (2) Thrombocytopenia Status: Resolved (3) Superficial thrombophlebitis Status: Acute (4) Pulmonary embolism Status: Acute (5) Acute asthma exacerbation Status: Acute (6) Warfarin-induced coagulopathy Status: Acute (7) Septic hip Status: Acute (8) Abscess of hip, right Status: Acute Assessment 51-year-old male with a past medical history of recurrent asthma attacks with recurrent hospital admissions, hypertension, hyperlipidemia, history of pulmonary embolism and DVT and also right hip wound infection who was admitted to the hospital with shortness of breath and exacerbation of asthma. Hematology has been consulted to evaluate this patient who has been on Coumadin for DVT and pulmonary embolism and has been difficult to manage due labile INR. He on he has persistent suboptimal therapeutic levels. 1. Hx of Pulmonary embolism and DVT-- in the setting of a hospital admission in december 2015 2. Labile and difficult to manage INR while on Coumadin 3. Infected right hip wound. 4. Exacerbation of asthma. 5. GIB--resolved. colonoscopy was abandoned due to poor prep. GI signed off-- GIB likely due to hemorrhoids. H/H stable. Plan 1. continue Lovenox bridge to coumadin 2. clear for discharge Problem Qualifiers (1) Acute asthma exacerbation: Qualified Code: J45.51 - Severe persistent asthma with acute exacerbation Reuben Cali MD Sep 26, 2016 21:15
--- NOTE | 2016-10-03 07:31 | MD ---
cc: MYRON BAGLEY MD ADMISSION DATE: 08/29/2016 DISCHARGE DATE: 09/26/2016 Okay to discharge patient. CONDITION AT THE TIME OF DISCHARGE Satisfactory ACTIVITY As tolerated. DIET Healthy heart diet, cardiac diet. ALLERGIES DEMEROL AND TETRACYCLINE DISCHARGE MEDICATIONS Includes: 1. Ceftin 500 grams twice a day for 7 days 2. Lovenox 100 mg subcutaneous twice a day 3. Diazepam 0.5 mg twice a day 4. Potassium chloride 10 mEq 12. 5. Prednisone 10 mg p.o. daily 6. Tramadol 100 mg p.o. 8 hours p.r.n. pain 7. Coumadin 2.5 mg p.o. daily 8. Lipitor 20 mg p.o. q.h.s. 9. Symbicort 2 puffs inhalation q. 12-hour. 10. Diltiazem 60 mg p.o. daily 11. Fluconazole 400 mg p.o. daily 12. Lortab 7.5/225 q8h p.r.n. pain 13. Ipratropium Albuterol nebulization q6h 14. Singulair 10 mg p.o. daily 15. Protonix 40 mg daily 16. Promethazine codeine 5 mL q4h for cough 17. Carafate 1 gram p.o. t.i.d. ADMISSION DIAGNOSIS 1. Shortness of breath and cough and congestion secondary to COPD or asthma exacerbation. The patient has severe asthma and has had multiple hospital admissions and has been intubated in the past. 2. History of for DVT and pulmonary embolism in the past. The patient was on Coumadin. INR was supratherapeutic at the time of admission. 3. Acute respiratory failure secondary to COPD, asthma Exacerbation. 4. Community acquired pneumonia. The patient got antibiotic during the hospital stay and pneumonia resolved. 5. Acute right hip pain. The patient is status post hematoma evacuation on the right hip by ultrasound-guided. 6. Chronic COPD/asthma. 7. History of pulmonary embolism. 8. History of right leg DVT. 9. History of septic arthritis with septic hip. 10. Warfarin induced coagulopathy. 11. History of anxiety. 12. History of tachycardia. 13. History of depression. 14. History of hyperlipidemia. 15. History of gastroesophageal reflux disease. 16. Right hip infection. The patient on was on Diflucan and micafungin during the hospital stay. 17. Nausea and vomiting which has resolved. 18. High WBC count which is improved. 19. Anemia secondary to chronic disease. HOSPITAL COURSE This is a 51-hour male admitted with above-mentioned complaints and problems seen by multiple physicians including orthopedic, pulmonary, cardiology, hematology/oncology and GI. The patient was given empiric antibiotic and also given nebulization with Xopenex and Atrovent. The patient also got Solu-Medrol IV during the hospital stay and eventually tapered down to prednisone 10 mg p.o. daily. The patient seen by pulmonology. The patient also has a hematoma accumulated in the right hip area. The patient was tried to be taken off of Coumadin, Xarelto was started, but it did not work and the patient developed bleeding from the rectum, as well as the mouth and nosebleed. The patient had a hematoma collected at the right hip area surgery site where ultrasound-guided hematoma was evacuated. The patient otherwise remained stable. The patient had a colonoscopy done because of the rectal bleeding, but it was poor prep. The patient was to follow up with PCP, GI, cardiology, orthopedic and pulmonary in one week. Further details in the medical record. The patient had anemia with a hemoglobin of 8.7. The patient had mild hypokalemia during the hospital stay. The patient's urinalysis did not show any urinary tract infection. The patient's secretion negative for MRSA. The patient's fluid shows no fungus elements seen. No growth in 72 hours from hematoma. Other than that, further details in the medical record. Myron Bagley MD EA/ANGELIQUE /3:26 PM /7:11 AM
== END 2016-09-26 15:21 | disposition home health service (06) | DRG 189 ==
LOC: NEPC 14:05 → NEDA 17:26 → N05B 21:57 → HIMW 08-30 05:20 → HCIN 08-31 17:28 → HCVR 09-07 03:45 → N05B 09-10 19:07
PROVIDERS: ADMIT Family Medicine; ATTEND Family Medicine
PROC: 5A09357 Assistance with Respiratory Ventilation, Less than 24 Consecutive Hours, Continuous Positive Airway Pressure (ICD-10-PCS; principal; 2016-08-29)
PROC: 30233N1 Transfusion of Nonautologous Red Blood Cells into Peripheral Vein, Percutaneous Approach (ICD-10-PCS; 2016-09-01)
PROC: 0DJD8ZZ Inspection of Lower Intestinal Tract, Via Natural or Artificial Opening Endoscopic (ICD-10-PCS; 2016-09-13)
PROC: 0H9HXZX Drainage of Right Upper Leg Skin, External Approach, Diagnostic (ICD-10-PCS; 2016-09-18)
DX: J96.01 Acute respiratory failure with hypoxia (principal); T84.50XA Infection and inflammatory reaction due to unspecified internal joint prosthesis, initial encounter; D69.6 Thrombocytopenia, unspecified; J44.1 Chronic obstructive pulmonary disease with (acute) exacerbation; J45.51 Severe persistent asthma with (acute) exacerbation; K92.1 Melena; J96.02 Acute respiratory failure with hypercapnia; I10 Essential (primary) hypertension; T45.515A Adverse effect of anticoagulants, initial encounter; K21.9 Gastro-esophageal reflux disease without esophagitis; K60.2 Anal fissure, unspecified; R79.1 Abnormal coagulation profile; Z86.711 Personal history of pulmonary embolism; E78.00 Pure hypercholesterolemia, unspecified; F32.9 Major depressive disorder, single episode, unspecified; F41.9 Anxiety disorder, unspecified; Z79.01 Long term (current) use of anticoagulants; Z86.718 Personal history of other venous thrombosis and embolism; R04.0 Epistaxis; M19.90 Unspecified osteoarthritis, unspecified site; E78.5 Hyperlipidemia, unspecified; T45.511A Poisoning by anticoagulants, accidental (unintentional), initial encounter; M25.551 Pain in right hip; I80.9 Phlebitis and thrombophlebitis of unspecified site; K64.9 Unspecified hemorrhoids; Z86.010 Personal history of colon polyps; S70.11XA Contusion of right thigh, initial encounter; Y83.1 Surgical operation with implant of artificial internal device as the cause of abnormal reaction of the patient, or of later complication, without mention of misadventure at the time of the procedure; Z96.643 Presence of artificial hip joint, bilateral; R11.2 Nausea with vomiting, unspecified; R00.0 Tachycardia, unspecified
CPT/HCPCS: 10160; 36430; 36569; 36600; 71010; 71275; 72192; 73502; 76937; 76942; 80048; 80053; 80198; 81001; 82550; 82805; 82948; 83690; 83735; 83880; 84484; 85007; 85014; 85018; 85025; 85027; 85379; 85610; 85652; 85730; 86140; 86850; 86900; 86901; 86920; 87070; 87102; 87205; 87206; 87641; 93005; 94002; 94003; 94640; 94644; 94664; 96365; 96375; J0171; J0456; J0461; J0696; J1170; J1642; J1644; J1650; J1815; J1940; J2060; J2248; J2405; J2550; J2920; J2930; J3475; J7030; J7050; J7512; J7613; J7614; P9016; Q9967

== ENCOUNTER 2016-09-29 10:32 | Inpatient (IN) | payer BC, OTHER ==
[~2016-09-29] VITALS: Ht 182.9 cm; Wt 99.3 kg
[2016-09-29] VITALS (8 sets, daily range): BP systolic 134–171; BP diastolic 91–104; PULSE 115–135; RESP 16–26; TEMP 97–98.4; O2SAT 95–98
[~2016-09-29 10:32] MED LIST changes: -AZIT250T3 PO; +CEFT500T3 PO; +COUM2.5T PO; +ENOX100P SQ; +HYDR-3534 PO; +LORA-392 PO; -OMEP40CA2 PO; +POTA-243 PO; -PRED20 PO; +ULTR50TA5 PO; -WARF-58 PO
[2016-09-29] MEDS ORDERED: methylPREDNISolone SOD SUCC 125 MG/2 ML VIAL IVP ONE (11:00)
[2016-09-29] MEDS: RESP: ALBUTEROL 2.5 MG/IPRATROPIUM 0.5 MG NEB (SCH) INH ×2 (11:33→11:34)
[2016-09-29 11:34] LABS: AUTOMATED NEUTROPHIL # 3.6 TH/MM3 (1.8-7.7); BASOPHIL # 0.1 TH/MM3 (0-0.2); EOSINOPHIL # 0.1 TH/MM3 (0-0.4); EOSINOPHIL % 1.3 % (0.0-4.0); HEMATOCRIT 30.4 % (39.0-51.0); LYMPH % 22.7 % (9.0-44.0); LYMPHOCYTE # 1.3 TH/MM3 (1.0-4.8); MEAN CELL VOLUME 80.7 FL (80.0-100.0); MEAN CORPUSCULAR HEMOGLOBIN 25.8 PG (27.0-34.0); MONO % 9.7 % (0.0-8.0); NEUT % 65.3 % (16.0-70.0); PLATELET COUNT 379 TH/MM3 (150-450); RED BLOOD COUNT 3.77 MIL/MM3 (4.50-5.90); RED CELL DISTRIBUTION WIDTH 25.9 % (11.6-17.2); WHITE BLOOD COUNT 5.5 TH/MM3 (4.0-11.0)
[2016-09-29 11:38] LABS: HEMO FLAGS AUTO DIFF
[2016-09-29 11:56] LABS: ALKALINE PHOSPHATASE 145 U/L (45-117); TOTAL BILIRUBIN ADULT 0.5 MG/DL (0.2-1.0)
--- NOTE | 2016-09-29 12:02 | RADRPT ---
EXAM DATE/TIME: 09/29/2016 11:14 [facility] COMPARISON: CHEST SINGLE AP, September 06, 2016, 5:15. INDICATIONS : Short of breath. MEDICAL HISTORY : Chronic obstructive pulmonary disease. Hypertension. SURGICAL HISTORY : None. ENCOUNTER: Initial ACUITY: 1 day PAIN SCORE: 0/10 LOCATION: Bilateral chest FINDINGS: Portable AP view of the chest demonstrates a normal-sized cardiac silhouette. No effusion, consolidat ion, or pneumothorax is present. Right upper extremity PICC distal tip is in the SVC. CONCLUSION: No acute cardiopulmonary abnormality is identified. Adin Cheema MD on September 29, 2016 at 12:00 Board Certified Radiologist. This report was verified electronically.
[2016-09-29 12:13] LABS: ALT (GPT) 115 U/L (12-78); ANION GAP 12 MEQ/L (5-15); AST (GOT) 95 U/L (15-37); BICARBONATE 23.4 MEQ/L (21.0-32.0); BLOOD UREA NITROGEN 9 MG/DL (7-18); CHLORIDE 104 MEQ/L (98-107); GLOMERULAR FILTRATION RATE 92 ML/MIN (>89); SODIUM (NA) 139 MEQ/L (136-145)
[2016-09-29] MEDS ORDERED: HYDROmorphone HCL PF 1 MG/ML VIAL IV PUSH ONE (12:15)
[2016-09-29 12:27] LABS: POTASSIUM 3.8 MEQ/L (3.5-5.1)
[2016-09-29 12:31] LABS: BANDS 2 % (0-6); CORRECTED NUCLEATED RBC 3 /100 WBC (0-0); METAMYELOCYTES 2 % (0-1); MYELOCYTES 11 % (0-0); NEUTROPHIL # MANUAL DIFF 3.9 TH/MM3 (1.8-7.7); POLYS (SEG NEUTROPHILS) 55 % (16-70); WBC DIFF SAMPLE 100
[2016-09-29 12:32] LABS: OVALOCYTES 1+ (NORMAL); PLATELET ESTIMATE SMEAR NORMAL (NORMAL); PLATELET MORPHOLOGY NORMAL (NORMAL); POLYCHROMASIA 2.9 % (0.0-1.9); SCAN/DIFF FINAL DIFF MANUAL; TEARDROP RBCS 1+ (NORMAL)
--- NOTE | 2016-09-29 12:53 | PD ---
HPI Chief Complaint: Pain: Acute or Chronic Time Seen by Provider: 12:00 Travel History International Travel<30 days: No Contact w/Intl Traveler<30days: No Traveled to known affect area: No History of Present Illness HPI 51-year-old male with protracted history of chronic brittle asthma, and recent hospitalization for right hip replacement infection with fungus currently being treated. Patient comes in today with worsening shortness of breath and wheezing, as well as increasing right hip pain not controlled with pain as a home. Patient is currently being treated with antifungal medications for his hip, as well as warfarin for DVT prophylaxis. He is a patient of Dr. Dai, his wastewater superintendent who recently tried decreasing his steroid dose. Patient denies fever, chills, but continues to have increasing wheezing and respiratory distress despite home nebulizer treatment and steroids. Patient is also complaining of worsening right hip pain not controlled with medications at home. He is allergic to Demerol and tetracycline. PFSH Past Medical History Hx Anticoagulant Therapy: Yes (COUMADIN, LOVENOX) Arthritis: Yes Asthma: Yes Autoimmune Disease: No Anxiety: Yes (XANAX) Depression: Yes (ON PAXIL) Heart Rhythm Problems: Yes (TACHY) Cancer: No Cardiovascular Problems: Yes (HTN ) High Cholesterol: Yes (ON LIPITOR) Chest Pain: Yes (DUE TO PE, PNEUMONIA) Congestive Heart Failure: No COPD: Yes Cerebrovascular Accident: No Diabetes: No Diminished Hearing: No Deep Vein Thrombosis: Yes (DECEMBER 2015: RIGHT LEG WITH PULMONARY EMBOLISM) Endocrine: No Gastrointestinal Disorders: No GERD: Yes Genitourinary: No Hiatal Hernia: No Hypertension: Yes (New HTN since last admit per pt/not documented) Immune Disorder: No Implanted Vascular Access Dvce: No Kidney Stones: No Musculoskeletal: No Neurologic: No Psychiatric: No Reproductive: No Respiratory: Yes (ASTHMA, COPD ) Pneumonia: Yes (NOVEMBER 2015) Renal Failure: No Sleep Apnea: No Thyroid Disease: No Ulcer: No Past Surgical History Abdominal Surgery: No Appendectomy: Yes Cardiac Surgery: No Endocrine Surgery: No Eye Surgery: No Genitourinary Surgery: Yes (apendectomy) Gynecologic Surgery: No Neurologic Surgery: No Oral Surgery: Yes Pacemaker: No Thoracic Surgery: No Tonsillectomy: Yes Other Surgery: Yes Social History Alcohol Use: No Tobacco Use: No Substance Use: No Allergies-Medications (Allergen,Severity, Reaction): Coded Allergies: Tetracycline (Verified Allergy, Severe, throat swells, 09/29/16) Demerol (Verified Allergy, Intermediate, hallucinations, 09/29/16) Reported Meds & Prescriptions Reported Meds & Active Scripts Active Ativan (Lorazepam) 0.5 Mg Tab 0.5 Mg PO BID Klor-Con 10 (Potassium Chloride) 10 Meq Tab 10 Meq PO Q12HR Prednisone 10 Mg Tab 10 Mg PO DAILY Ultram (Tramadol HCl) 50 Mg Tab 100 Mg PO Q8H PRN Coumadin (Warfarin) 2.5 Mg Tab 2.5 Mg PO DAILY@16 Ceftin (Cefuroxime Axetil) 500 Mg Tab 500 Mg PO Q12HR Lovenox Inj (Enoxaparin Sodium) 100 Mg/Ml Syr 100 Mg SQ BID 30 Days Promethazine-Codeine Liq 6.25-10 Mg/5 Ml Syrp 5 Ml PO Q4H PRN Fluconazole 200 Mg Tab 400 Mg PO DAILY Reported Lortab (Hydrocodone-Acetaminophen) 7.5-325 Mg Tab 1 Tab PO TID PRN Protonix (Pantoprazole Sodium) 40 Mg Tab 40 Mg PO DAILY Duoneb (Ipratropium-Albuterol Neb) 0.5-2.5 Mg/3 Ml Neb 1 Nebule NEB QID PRN Diltiazem CD 24 HR 360 Mg Capcr 360 Mg PO DAILY Symbicort Inh (Budesonide/Formoterol Fumarate) 160-4.5 Mcg/Act Aero 2 Puff INH Q12HR Singulair (Montelukast Sodium) 10 Mg Tab 10 Mg PO HS Lipitor (Atorvastatin Calcium) 20 Mg Tab 20 Mg PO HS Carafate (Sucralfate) 1 Gm Tab 1 Gm PO TID On empty stomach Levalbuterol Neb (Levalbuterol HCl) 1.25 Mg/3 Ml Neb 1.25 Mg NEB BID PRN Review of Systems Except as stated in HPI: all other systems reviewed are Neg General / Constitutional: No: Fever, Chills Eyes: No: Visual changes HENT: No: Headaches Cardiovascular: No: Chest Pain or Discomfort Respiratory: Positive: Cough, Shortness of Breath, Wheezing, No: Sneezing, Orthopnea, Hemoptysis, Night Sweats, Pleuritic Pain Gastrointestinal: No: Abdominal Pain Genitourinary: No: Dysuria Musculoskeletal: Positive: Arthralgias (see history present illness.), Limited ROM, Pain Skin: No Rash Neurologic: No: Weakness Psychiatric: No: Depression Endocrine: No: Polydipsia Hematologic/Lymphatic: No: Easy Bruising Physical Exam Narrative GENERAL: Patient is in moderate respiratory distress with audible wheezing and tractions noted. SKIN: Warm and dry. Normal color. Normal turgor. Patient has some old appearing ecchymotic changes over the right hip replacement, without increased erythema or warmth. Area is tender to palpation. HEAD: Atraumatic. Normocephalic. EYES: Pupils equal and round. No scleral icterus. No injection or drainage. ENT: No nasal bleeding or discharge. Mucous membranes pink and moist. Pharynx is clear. NECK: Trachea midline. No JVD. CARDIOVASCULAR: Tachycardic rate and normal rhythm. RESPIRATORY: Moderate accessory muscle use. Moderate Diffuse wheezing to auscultation. Breath sounds equal bilaterally. GASTROINTESTINAL: Abdomen soft, non-tender, nondistended. Hepatic and splenic margins not palpable. MUSCULOSKELETAL: Extremities without clubbing, cyanosis, or edema. No obvious deformities. Right rib is painful with any movement or palpation. NEUROLOGICAL: Awake and alert. No obvious cranial nerve deficits. Motor grossly within normal limits. Normal speech. PSYCHIATRIC: Appropriate mood and affect; insight and judgment normal. Data Data Last Documented VS Vital Signs Date Time Temp Pulse Resp B/P Pulse Ox O2 Delivery O2 Flow Rate FiO2 09/29/16 12:40 118 18 147/101 97 Nasal Cannula 2 09/29/16 10:59 98.4 Orders Complete Blood Count With Diff (09/29/16 11:00) Comprehensive Metabolic Panel (09/29/16 11:00) Iv Access Insert/Monitor (09/29/16 11:00) Ecg Monitoring (09/29/16 11:00) Oximetry (09/29/16 11:00) Oxygen Administration (09/29/16 11:00) Chest, Single Ap (09/29/16 11:00) Sodium Chloride 0.9% Flush (Ns Flush) (09/29/16 11:00) Methylprednisolone So Succ Inj (Solumedr (09/29/16 11:00) Albuterol-Ipratropium Neb (Duoneb Neb) (09/29/16 11:00) Electrocardiogram (09/29/16 ) Hydromorphone Pf Inj (Dilaudid Pf Inj) (09/29/16 12:15) Prothrombin Time / Inr (Pt) (09/29/16 12:39) Act Partial Throm Time (Ptt) (09/29/16 12:39) Consult Pulmonology (09/29/16 ) (Hub Use Only)Inp Phy Cons/Ref (09/29/16 ) Labs Laboratory Tests Test 09/29/16 11:16 White Blood Count 5.5 TH/MM3 Red Blood Count 3.77 MIL/MM3 Hemoglobin 9.7 GM/DL Hematocrit 30.4 % Mean Corpuscular Volume 80.7 FL Mean Corpuscular Hemoglobin 25.8 PG Mean Corpuscular Hemoglobin 32.0 % Concent Red Cell Distribution Width 25.9 % Platelet Count 379 TH/MM3 Mean Platelet Volume 6.9 FL Neutrophils (%) (Auto) 65.3 % Lymphocytes (%) (Auto) 22.7 % Monocytes (%) (Auto) 9.7 % Eosinophils (%) (Auto) 1.3 % Basophils (%) (Auto) 1.0 % Neutrophils # (Auto) 3.6 TH/MM3 Lymphocytes # (Auto) 1.3 TH/MM3 Monocytes # (Auto) 0.5 TH/MM3 Eosinophils # (Auto) 0.1 TH/MM3 Basophils # (Auto) 0.1 TH/MM3 CBC Comment AUTO DIFF Differential Total Cells 100 Counted Neutrophils % (Manual) 55 % Band Neutrophils % 2 % Lymphocytes % 20 % Monocytes % 10 % Neutrophils # (Manual) 3.9 TH/MM3 Metamyelocytes 2 % Myelocytes 11 % Nucleated Red Blood Cells 3 /100 WBC Differential Comment FINAL DIFF MANUAL Platelet Estimate NORMAL Platelet Morphology Comment NORMAL Polychromasia 2.9 % Tear Drop Cells 1+ Ovalocytes 1+ Sodium Level 139 MEQ/L Potassium Level 3.8 MEQ/L Chloride Level 104 MEQ/L Carbon Dioxide Level 23.4 MEQ/L Anion Gap 12 MEQ/L Blood Urea Nitrogen 9 MG/DL Creatinine 0.87 MG/DL Estimat Glomerular Filtration 92 ML/MIN Rate Random Glucose 180 MG/DL Calcium Level 8.9 MG/DL Total Bilirubin 0.5 MG/DL Aspartate Amino Transf 95 U/L (AST/SGOT) Alanine Aminotransferase 115 U/L (ALT/SGPT) Alkaline Phosphatase 145 U/L Total Protein 6.7 GM/DL Albumin 3.7 GM/DL [facility] Medical Decision Making Medical Screen Exam Complete: Yes Emergency Medical Condition: Yes Differential Diagnosis Worsening right hip pain. History right hip prosthesis fungal infection. Wheezing. Asthma exacerbation. Respiratory distress. Narrative Course Patient is in mild to moderate respiratory distress. Labs ordered by Dr. Sweet including CBC, CMP, PT PTT and INR. Chest x-ray is ordered. Chest x-ray shows no acute changes per radiologist. IV access is obtained patient is given hydromorphone 1 mg IV for his hip pain, methylprednisone 125 mg IV, 1230 hrs. patient is not significantly improved in terms of his respiratory status, although oxygenating at 94% on room air. Dr. Hernandez, the patient's wastewater superintendent actually saw the patient in the emergency department and felt he should be admitted for his respiratory issues. 1250 hrs. call was placed to the hospitalist for admission. Patient discussed with Dr. Chung who admits the patient to observation. Dr. Hernandez is consulted. Diagnosis Primary Impression: Acute asthma exacerbation Qualified Code: J45.51 - Severe persistent asthma with acute exacerbation Additional Impressions: Chronic obstructive pulmonary disease Qualified Code: J44.1 - Chronic obstructive pulmonary disease with acute exacerbation Septic hip Admitting Information Admitting Physician Requests: Observation Condition: Stable Santo Stringer Sep 29, 2016 12:53
[2016-09-29 13:28] LABS: PROTHROMBIN TIME - PATIENT 23.7 SEC (9.8-11.6)
[2016-09-29 13:29] LABS: APTT (PATIENT) 33.5 SEC (24.3-30.1); INTERNATIONAL NORMALIZED RATIO 2.1 RATIO
[2016-09-29] MEDS ORDERED: RESP: ALBUTEROL 2.5 MG/3 ML NEB (PRN) INH (14:30)
--- NOTE | 2016-09-29 15:06 | PD ---
Data Data Last Documented VS Vital Signs Date Time Temp Pulse Resp B/P Pulse Ox O2 Delivery O2 Flow Rate FiO2 09/29/16 12:40 118 18 147/101 97 Nasal Cannula 2 09/29/16 10:59 98.4 Orders Complete Blood Count With Diff (09/29/16 11:00) Comprehensive Metabolic Panel (09/29/16 11:00) Iv Access Insert/Monitor (09/29/16 11:00) Ecg Monitoring (09/29/16 11:00) Oximetry (09/29/16 11:00) Oxygen Administration (09/29/16 11:00) Chest, Single Ap (09/29/16 11:00) Sodium Chloride 0.9% Flush (Ns Flush) (09/29/16 11:00) Methylprednisolone So Succ Inj (Solumedr (09/29/16 11:00) Albuterol-Ipratropium Neb (Duoneb Neb) (09/29/16 11:00) Electrocardiogram (09/29/16 ) Hydromorphone Pf Inj (Dilaudid Pf Inj) (09/29/16 12:15) Prothrombin Time / Inr (Pt) (09/29/16 12:39) Act Partial Throm Time (Ptt) (09/29/16 12:39) Consult Pulmonology (09/29/16 ) (Hub Use Only)Inp Phy Cons/Ref (09/29/16 ) Admit Order (Ed Use Only) (09/29/16 13:17) Labs Laboratory Tests Test 09/29/16 09/29/16 11:16 12:42 White Blood Count 5.5 TH/MM3 Red Blood Count 3.77 MIL/MM3 Hemoglobin 9.7 GM/DL Hematocrit 30.4 % Mean Corpuscular Volume 80.7 FL Mean Corpuscular Hemoglobin 25.8 PG Mean Corpuscular Hemoglobin 32.0 % Concent Red Cell Distribution Width 25.9 % Platelet Count 379 TH/MM3 Mean Platelet Volume 6.9 FL Neutrophils (%) (Auto) 65.3 % Lymphocytes (%) (Auto) 22.7 % Monocytes (%) (Auto) 9.7 % Eosinophils (%) (Auto) 1.3 % Basophils (%) (Auto) 1.0 % Neutrophils # (Auto) 3.6 TH/MM3 Lymphocytes # (Auto) 1.3 TH/MM3 Monocytes # (Auto) 0.5 TH/MM3 Eosinophils # (Auto) 0.1 TH/MM3 Basophils # (Auto) 0.1 TH/MM3 CBC Comment AUTO DIFF Differential Total Cells 100 Counted Neutrophils % (Manual) 55 % Band Neutrophils % 2 % Lymphocytes % 20 % Monocytes % 10 % Neutrophils # (Manual) 3.9 TH/MM3 Metamyelocytes 2 % Myelocytes 11 % Nucleated Red Blood Cells 3 /100 WBC Differential Comment FINAL DIFF MANUAL Platelet Estimate NORMAL Platelet Morphology Comment NORMAL Polychromasia 2.9 % Tear Drop Cells 1+ Ovalocytes 1+ Sodium Level 139 MEQ/L Potassium Level 3.8 MEQ/L Chloride Level 104 MEQ/L Carbon Dioxide Level 23.4 MEQ/L Anion Gap 12 MEQ/L Blood Urea Nitrogen 9 MG/DL Creatinine 0.87 MG/DL Estimat Glomerular Filtration 92 ML/MIN Rate Random Glucose 180 MG/DL Calcium Level 8.9 MG/DL Total Bilirubin 0.5 MG/DL Aspartate Amino Transf 95 U/L (AST/SGOT) Alanine Aminotransferase 115 U/L (ALT/SGPT) Alkaline Phosphatase 145 U/L Total Protein 6.7 GM/DL Albumin 3.7 GM/DL Prothrombin Time 23.7 SEC Prothromb Time International 2.1 RATIO Ratio Activated Partial 33.5 SEC Thromboplast Time MDM Supervised Visit with MELVINA: Yes Narrative Course The history, exam, and medical decision-making in the associated midlevel provider note were completed with my assistance. I reviewed and agree with the findings presented. I attest that I had a [id number] encounter with the patient on the same day, and personally performed and documented my assessment and findings in the medical record. *My assessment and Findings: This is a 51-year-old male who has a history of a fungal infection complicating his right hip prosthesis, with severe brittle asthma presenting to the emergency department in respiratory distress. He was given serial DuoNeb's, steroids and labs are all reassuring. He was seen by his pest control pilot Dr. Dai in the emergency department who agreed the patient requires admission for continued pulmonary management. Diagnosis Primary Impression: Acute asthma exacerbation Qualified Code: J45.51 - Severe persistent asthma with acute exacerbation Additional Impressions: Septic hip Chronic obstructive pulmonary disease Qualified Code: J44.1 - Chronic obstructive pulmonary disease with acute exacerbation Condition: Katiuska Christine MD Sep 29, 2016 15:06
[2016-09-29] MEDS: ACETAMINOPHEN/HYDROcodone 325 MG/7.5 MG TAB PO PRN (16:07)
[2016-09-29] MEDS: WARFARIN SOD 2.5 MG TAB PO SCH (16:42)
[2016-09-29] MEDS: PROMETHAZINE/CODEINE 6.25 MG/10 MG/5 ML CUP PO PRN (16:42)
[2016-09-29] MEDS: methylPREDNISolone SOD SUCC 125 MG/2 ML VIAL IV PUSH SCH ×2 (17:34→18:54)
[2016-09-29] MEDS: RESP: ALBUTEROL 2.5 MG/IPRATROPIUM 0.5 MG NEB (PRN) NEB (17:52)
[2016-09-29] MEDS: SUCRALFATE 1 GM TAB PO SCH (18:00)
[2016-09-29] MEDS: HYDROmorphone HCL PF 1 MG/ML VIAL IV PUSH PRN (18:55)
--- NOTE | 2016-09-29 18:56 | RADRPT ---
EXAM DATE/TIME: 09/29/2016 18:02 [facility] COMPARISON: No previous studies available for comparison. INDICATIONS : Hematoma. MEDICAL HISTORY : Chronic obstructive pulmonary disease. Hypercholesterolemia. Deep venous thrombosis. Hypertension. An ticoagulant therapy. Tachycardia. Pulmonary embolism. Pneumonia. Asthma. Gastroesophageal feflux. Ath ritis. Depression. Anxiety. SURGICAL HISTORY : Appendectomy. Tonsillectomy. Bilateral hip surgerys. ENCOUNTER: Subsequent ACUITY: 1 day PAIN SCORE: 5/10 LOCATION: Right hip. AREA EVALUATED: Right leg lateral upper thigh/hip area. FINDINGS: Hypoechoic, complex area below and lateral to the incision in the right hip region measures 17.3 x 4. 9 x 2.0 cm as well as an anechoic area distal to the incision measuring 6.0 x 5.1 x 2.5 cm. Findings are nonspecific and may represent resolving hematoma/seroma although abscess cannot be completely exc luded. CONCLUSION: 1. Hypoechoic areas with measurements above subjacent and anterior to the right hip incision line. 2. Findings are nonspecific but likely represent resolving hematoma/seroma. Abscess cannot be complet christy excluded. Please correlate with clinical presentation. Russ Morrison MD on September 29, 2016 at 18:52 Board Certified Radiologist. This report was verified electronically.
--- NOTE | 2016-09-29 18:56 | MH ---
cc: MYRON BAGLEY MD DATE OF ADMISSION: 09/29/2016 CHIEF COMPLAINT: Shortness of breath HISTORY OF PRESENT ILLNESS" This is a 51-year-old male with past medical-surgical history significant for a protracted history of chronic brittle asthma having multiple hospitalizations in the past and also having intubation and ventilator in the past, right hip replacement, infection with fungus currently being treated with Bactroban, having worsening shortness of breath and labored breathing. He had been taking Coumadin for a history of pulmonary embolism and right leg DVT, history of arthritis, anxiety, depression, tachycardia, hypertension, hyperlipidemia, history of pneumonia, history of appendectomy in the past. He has had multiple episodes of shortness of breath and wheezing continuous and he has had multiple hospitalizations and has been treated with IV steroids and Xopenex and Atrovent nebulization as well as he was on Theophylline. Dr. Hernandez is his corn husker machine operator for this patient and has seen the patient. He also has bilateral avascular necrosis. He has had left hip surgery in the past. He recently got right hip surgery which got infected and he is on Diflucan p.o. Dr. Morris from infectious disease was seeing this patient. He also has tachycardia because. He continues on bronchodilators like albuterol and Atrovent, Xopenex nebulizations. He denies any chest pain today. He feels very short of breath. He decided to come to my office and then he was sent to the emergency room from my office. He had severe episodes of asthma exacerbation. He has a family history of lung disease in which one of his family members had a lung transplant in the past, but could not survive. Other than that, he is complaining of right hip pain and the operation site area. He had a hematoma drainage on the last admission because he was tried to do Xarelto and he was on Heparin and eventually the right hip CT scan done showed a fluid collection which turned out to be a hematoma, not abscess. He had a hematoma drainage and he was also complaining of right hip area getting swollen and painful to the extent that he cannot bear the pain. Other than that, nothing significant. PAST MEDICAL HISTORY / PAST SURGICAL HISTORY: As dictated above. SOCIAL HISTORY: Denies smoking, drinking, or taking any drugs. He lives at home with his . 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 FAMILY HISTORY: His family history is significant for asthma, severe lung disease. ALLERGIES: 1. TETRACYCLINE. 2. DEMEROL. MEDICATIONS: His medications include: 1. Ativan 0.5 milligrams p.o. twice a day. 2. Klor-Con 10 milliequivalents q. 12 hours. 3. Prednisone 10 milligrams p.o. daily. 4. Tramadol 50 milligrams q. 8 hours PRN pain. 5. Coumadin 2.5 milligrams p.o. daily. 6. Ceftin 500 milligrams q. 12 hours. 7. Lovenox injection 100 milligrams subcutaneous twice a day. Promethazine / Codeine 6.25 / 10 milligrams / 5 mL q. 4 hours. 8. Fluconazole 400 milligrams p.o. daily. 9. Lortab 7.5 / 325 q. 8 hours PRN pain. 10. Protonix 40 milligrams p.o. daily. 11. DuoNeb nebulization every four hours. 12. Diltiazem 360 milligrams p.o. daily. 13. Symbicort 160 / 4.5 micrograms two puff inhalations twice a day. 14. Singulair 10 milligrams p.o. daily. 15. Lipitor 20 milligrams p.o. daily. 16. Carafate 1 gram p.o. three times a day. REVIEW OF SYSTEMS: Review of systems positive for shortness of breath, severe weakness and wheezing and also right hip pain and swelling of the right hip. PHYSICAL EXAMINATION: GENERAL: On physical exam, this is a 51-year-old male sitting on the bed having some wheezing in mild acute distress. VITAL SIGNS: Temperature is 98.4, heart rate 115, temperature is 154/93, respirations 22, 02 saturation 95% on two liters nasal cannula. HEAD, EYES, EARS, NOSE, THROAT: Normocephalic and atraumatic. Extraocular muscles intact. Pupils equal, round and reactive to light and accommodation. Oral mucosa moist. NECK: The neck is supple. No visible thyromegaly or neck mass. Trachea is central. CARDIOVASCULAR: Regular rate and rhythm. Tachycardic. RESPIRATORY: Bilateral wheezing. Bilateral mild crackles. Decreased air entry bilaterally. ABDOMEN: Abdomen soft and distended. Bowel sounds audible. EXTREMITIES: No cyanosis or clubbing. Swelling of the right hip area with tenderness present at the operation site. NEUROLOGIC: Awake, alert and oriented times four. No focal deficits. SKIN: Warm and dry. PSYCHIATRIC: The patient is cooperative. Mood and affect are normal. LABS: CBC shows white blood cell count 5.5, RBCs 3.7, hemoglobin 9.7, hematocrit 30.4 low, platelet count 379,000 normal. Neutrophils 6.9 low, lymphs 9.7 high. Basic metabolic profile totally unremarkable except for glucose of 185. AST 95 high. ALT 115 high. Alkaline phosphatase 145 high. Albumin 3.7. Total protein 6.7. PT 23.7. INR 2.1. APTT 33.5. IMAGING STUDIES: Chest x-ray done shows no acute cardiopulmonary abnormality identified. EKGS: EKG done shows sinus tachycardia at rate of 120, nothing acute. ASSESSMENT AND PLAN: 1. This is a 51-year-old male who came to the emergency room diagnosed with shortness of breath and wheezing secondary to asthma exacerbation. The patient was started on prednisone 60 milligrams IV q.6 h and also Xopenex and Atrovent nebulization and pulmonary was consulted. The patient is on oxygen. Further recommendation per pulmonary. 2. History for right hip infection with fungus. The patient is on Diflucan. He has right hip swelling and pain. I will check ultrasound of the right hip area to look for a fluid collection and if there is fluid that needs drainage, then I will consult the orthopedist too for right hip pain. 3. Septic right hip. The patient is on Diflucan. Will monitor. 4. History of chronic obstructive pulmonary disease. Continue home medications. 5. History of depression. Continue home medications. 6. History of anxiety. Continue with Ativan 0.5 milligrams twice a day. 7. Right hip pain. The patient started on tramadol and Oxbow and also added Dilaudid 0.5 milligrams p.o. q. 6 hours PRN pain. 8. History of hyperlipidemia. Continue on Lipitor 20 milligrams p.o. daily. 9. DVT prophylaxis. The patient is on coumadin. INR is therapeutic. 10. GI prophylaxis. Protonix 40 milligrams p.o. daily. The patient is also on Carafate 1 gram p.o. three times a day. 11. History of pulmonary embolism and DVT right leg. The patient is on coumadin and INR is therapeutic. Will monitor INR daily. We are going to manage the patient on a daily basis and make recommendations on a daily basis. The patient's condition was discussed with the patient as well as the at the bedside and they verbalized understanding. Myron Bagley MD EA/LILIA /4:40 PM /6:36 PM
--- NOTE | 2016-09-29 19:02 | MB ---
cc: MARY HERNANDEZ M.D. DATE OF CONSULTATION 09/29/2016 REASON FOR CONSULTATION Asthma exacerbation. HISTORY OF PRESENT ILLNESS The patient is a 51-year-old male with known history of bronchial asthma of severe degree. The patient as well had a recent surgery for septic right hip and subsequent placement of antibiotic hip prosthesis. The patient has recently been discharged and comes today stating his shortness of breath had markedly increased as well as his chest wheeze. He was on prednisone tapering schedule at home. Came to the emergency room, received Solu-Medrol and IV steroids and states his wheezing is improved, however, he remains with significant shortness of breath and wheezing. PAST MEDICAL HISTORY Is that of: 1. Bronchial asthma as mentioned above. 2. Right hip surgery for septic arthritis. 3. Anxiety and depression. 4. Hyperlipidemia. 5. History of deep venous thrombosis and pulmonary embolism. SOCIAL HISTORY Does not smoke, does not drink. Does not use drugs. ALLERGIES TETRACYCLINE, DEMEROL. MEDICATIONS 1. Ativan 0.5 milligrams twice a day. 2. Potassium. 3. Prednisone 10 milligrams daily. 4. Ultram. 5. Coumadin. 6. Ceftin. 7. Lovenox. 8. Promethazine. 9. Codeine. 10. Fluconazole. 11. Lortab. 12. Protonix. 13. Diltiazem. 14. Symbicort. 15. Singulair. 16. Lipitor. FAMILY HISTORY Noncontributory. REVIEW OF SYSTEMS 12-point review of systems as per HPI and past history otherwise negative. PHYSICAL EXAMINATION GENERAL: On exam the patient is alert. VITAL SIGNS: His temperature is 98.4, pulse 100, respirations 18, blood pressure 140/90. Oxygen saturation 92% on 2 liters oxygen nasal cannula. HEENT: Exam unremarkable. Eyes without icterus. NECK: Without adenopathy. Thyroid enlargement. CHEST: Generalized wheeze and expiratory wheeze. CARDIOVASCULAR: Exam PMI not appreciated. S1-S2 audible. 1/6 ejection systolic murmur left sternal border. ABDOMEN: Lax. Audible bowel sounds. EXTREMITIES: No clubbing, cyanosis or edema. SKIN: Normal. No lymphadenopathy. LABORATORY DATA White count 5000, hemoglobin 9.7, hematocrit 38, platelets 379,000. INR pending. IMPRESSION 1. Asthma exacerbation. 2. Status post hip surgery. 3. DVT, PE. 4. Anxiety, depression. PLAN The patient will be admitted to the hospital. IV steroids given. Bronchodilator therapy initiated. Oxygen therapy as needed. Course followed closely and depending on progress proceed further. I do thank you for asking me to partake in Mr. Link's care. Mary Hernandez MD WWW/DEREK /1:41 PM /6:42 PM
[2016-09-29 19:06] LABS: INTERNATIONAL NORMALIZED RATIO 2.1 RATIO; PROTHROMBIN TIME - PATIENT 23.6 SEC (9.8-11.6)
[2016-09-29] MEDS: CEFUROXIME AXETIL 500 MG TAB PO SCH (21:54)
[2016-09-29] MEDS: POTASSIUM CHLORIDE 10 MEQ CONTROLLED RELEASE TAB PO SCH (21:54)
[2016-09-29] MEDS: ATORVASTATIN 20 MG TAB PO SCH (21:54)
[2016-09-29] MEDS: MONTELUKAST SODIUM 10 MG TAB PO SCH (21:54)
[2016-09-29] MEDS: LORazepam 0.5 MG TAB PO SCH (21:54)
[2016-09-29] MEDS: BUDESONIDE-FORMOTEROL 160/4.5 MCG INHALER INH SCH (21:54)
--- NOTE | 2016-09-29 23:02 | EKG ---
Date Performed: 09/29/2016 Time Performed: 11:03:35 PTAGE: 51 years EKG: SINUS TACHYCARDIA MODERATE VOLTAGE CRITERIA FOR LVH, CONSIDER NORMAL VARIANT ABNORMAL RHYTH M ECG INTERPRETATION BASED ON A DEFAULT AGE OF 40 YEARS PREVIOUS TRACING : 08/29/2016 14.20 Compared to the previous tracing, rate has decreased DOCTOR: Rex Rosario Interpretating Date/Time 09/29/2016 23:01:00
[2016-09-30] VITALS (9 sets, daily range): BP systolic 137–162; BP diastolic 87–99; PULSE 96–114; RESP 18–22; TEMP 97.5–98.8; O2SAT 93–98
[2016-09-30] MEDS: HYDROmorphone HCL PF 1 MG/ML VIAL IV PUSH PRN ×3 (01:14→20:26)
[2016-09-30] MEDS: methylPREDNISolone SOD SUCC 125 MG/2 ML VIAL IV PUSH SCH ×7 (01:16→18:28)
[2016-09-30 06:54] LABS: INTERNATIONAL NORMALIZED RATIO 2.3 RATIO; PROTHROMBIN TIME - PATIENT 26.8 SEC (9.8-11.6)
[2016-09-30] MEDS: RESP: ALBUTEROL 2.5 MG/IPRATROPIUM 0.5 MG NEB (PRN) NEB ×4 (08:06→20:38)
[2016-09-30] MEDS: CEFUROXIME AXETIL 500 MG TAB PO SCH (09:03)
[2016-09-30] MEDS: FLUCONAZOLE 200 MG TAB PO SCH (09:03)
[2016-09-30] MEDS: DILTIAZEM-CD 180 MG CAP ER PO SCH (09:06)
[2016-09-30] MEDS: POTASSIUM CHLORIDE 10 MEQ CONTROLLED RELEASE TAB PO SCH ×2 (09:06→20:25)
[2016-09-30] MEDS: PANTOPRAZOLE SOD 40 MG DELAYED RELEASE TAB PO SCH (09:06)
[2016-09-30] MEDS: SUCRALFATE 1 GM TAB PO SCH ×3 (09:06→18:27)
[2016-09-30] MEDS: LORazepam 0.5 MG TAB PO SCH ×2 (09:06→20:26)
[2016-09-30] MEDS: BUDESONIDE-FORMOTEROL 160/4.5 MCG INHALER INH SCH ×2 (09:08→20:26)
--- NOTE | 2016-09-30 09:37 | HHI.PR ---
Subjective History of Present Illness Patient have sever wheezing and pain left hip Right hip ultrasound noted consulted orthopedic and Infectious disease D/W Patient Review of Systems Constitutional Constitutional: Fatigue, Weakness Pulmonary Respiratory: Shortness of Breath, Wheezing Musculoskeletal MS Remarks Right Hip pain/ swelling. Integumentary Skin Remarks right hip bruise. Vitals/Results Vital Signs Vital Signs Date Time Temp Pulse Resp B/P Pulse Ox O2 Delivery O2 Flow Rate FiO2 09/30/16 08:06 96 Nasal Cannula 3.00 09/30/16 07:47 97.8 98 20 149/97 98 09/30/16 05:23 97.5 96 20 162/97 96 09/30/16 01:02 97.6 107 20 143/98 96 09/30/16 00:20 98 Nasal Cannula 2.00 09/29/16 20:24 97.0 115 16 165/91 98 09/29/16 15:21 115 18 154/93 95 Nasal Cannula 2 09/29/16 13:22 115 18 139/98 97 Nasal Cannula 2 09/29/16 12:40 118 18 147/101 97 Nasal Cannula 2 09/29/16 11:09 120 22 09/29/16 11:08 97 Nasal Cannula 2 09/29/16 11:08 97 Nasal Cannula 2 09/29/16 11:00 95 Nasal Cannula 2.00 09/29/16 10:59 98.4 135 18 171/99 95 Room Air 09/29/16 10:35 97.6 126 26 134/104 97 CBC/BMP: 09/29/16 1116 09/29/16 1116 Lab Results Laboratory Tests Test 09/29/16 09/29/16 09/29/16 09/30/16 11:16 12:42 18:24 06:15 White Blood Count 5.5 TH/MM3 Red Blood Count 3.77 MIL/MM3 Hemoglobin 9.7 GM/DL Hematocrit 30.4 % Mean Corpuscular Volume 80.7 FL Mean Corpuscular Hemoglobin 25.8 PG Mean Corpuscular Hemoglobin 32.0 % Concent Red Cell Distribution Width 25.9 % Platelet Count 379 TH/MM3 Mean Platelet Volume 6.9 FL Neutrophils (%) (Auto) 65.3 % Lymphocytes (%) (Auto) 22.7 % Monocytes (%) (Auto) 9.7 % Eosinophils (%) (Auto) 1.3 % Basophils (%) (Auto) 1.0 % Neutrophils # (Auto) 3.6 TH/MM3 Lymphocytes # (Auto) 1.3 TH/MM3 Monocytes # (Auto) 0.5 TH/MM3 Eosinophils # (Auto) 0.1 TH/MM3 Basophils # (Auto) 0.1 TH/MM3 CBC Comment AUTO DIFF Differential Total Cells 100 Counted Neutrophils % (Manual) 55 % Band Neutrophils % 2 % Lymphocytes % 20 % Monocytes % 10 % Neutrophils # (Manual) 3.9 TH/MM3 Metamyelocytes 2 % Myelocytes 11 % Nucleated Red Blood Cells 3 /100 WBC Differential Comment FINAL DIFF MANUAL Platelet Estimate NORMAL Platelet Morphology Comment NORMAL Polychromasia 2.9 % Tear Drop Cells 1+ Ovalocytes 1+ Sodium Level 139 MEQ/L Potassium Level 3.8 MEQ/L Chloride Level 104 MEQ/L Carbon Dioxide Level 23.4 MEQ/L Anion Gap 12 MEQ/L Blood Urea Nitrogen 9 MG/DL Creatinine 0.87 MG/DL Estimat Glomerular Filtration 92 ML/MIN Rate Random Glucose 180 MG/DL Calcium Level 8.9 MG/DL Total Bilirubin 0.5 MG/DL Aspartate Amino Transf 95 U/L (AST/SGOT) Alanine Aminotransferase 115 U/L (ALT/SGPT) Alkaline Phosphatase 145 U/L Total Protein 6.7 GM/DL Albumin 3.7 GM/DL Prothrombin Time 23.7 SEC 23.6 SEC 26.8 SEC Prothromb Time International 2.1 RATIO 2.1 RATIO 2.3 RATIO Ratio Activated Partial 33.5 SEC Thromboplast Time Physical Exam General General Appearance: No Acute Distress, Comfortable Eyes Eye Exam: Pupils Equal, Pupils Reactive, Sclera White, Extraocular Movement Intact Throat Throat Exam: Oral Mucosa [place] & Moist, Oral Pharynx Normal Neck Neck Exam: Neck Supple, Trachea Midline Pulmonary Resp Exam: Crackles, Diminished Breath Sounds Resp Remarks Sever Bilateral Wheezing. Cardiology CV Exam: Regular, Normal Sinus Rhythm Gastrointestinal/Abdomen GI Exam: Soft, Non-Tender, Bowel Sounds Present, Distended Musculoskeletal MS Exam: Normal Tone Integumentary Skin Exam: Warm, Dry Extremeties Extremities Exam: No Edema Neurologic Neuro Exam: Alert, Awake, Oriented, Speech Clear, Moving All Extremities, Milk Drying Machine Operator Equal, No Focal Deficits VTE Prophylaxis VTE Prophylaxis Meds: Coumadin PUD Prophylasis PUD Prophylaxis: Protonix Assessment/Plan Assessment/Plan ASSESSMENT AND PLAN: 1. This is a 51-year-old male who came to the emergency room diagnosed with shortness of breath and wheezing secondary to asthma exacerbation. The patient on solumedrol 60 milligrams IV q.6 h and also Xopenex and Atrovent nebulization and pulmonary consulted. The patient is on oxygen. Further recommendation per pulmonary. 2. History for right hip infection with fungus. The patient is on Diflucan. He has right hip swelling and pain. checked ultrasound of the right hip area shows no fluid collection consulted orthopedic for right hip pain. 3. Septic right hip. The patient is on Diflucan. Infectious disease consulted.. Will monitor. 4. History of chronic obstructive pulmonary disease. Continue home medications. 5. History of depression. Continue home medications. 6. History of anxiety. Continue with Ativan 0.5 milligrams twice a day. 7. Right hip pain. The patient on tramadol and [place] and also Dilaudid 0.5 milligrams p.o. q. 6 hours PRN pain. 8. History of hyperlipidemia. Continue on Lipitor 20 milligrams p.o. daily. 9. DVT prophylaxis. The patient is on coumadin. INR is therapeutic. 10. GI prophylaxis. Protonix 40 milligrams p.o. daily. The patient is also on Carafate 1 gram p.o. three times a day. 11. History of pulmonary embolism and DVT right leg. The patient is on coumadin and INR is therapeutic. Will monitor INR daily. We are going to manage the patient on a daily basis and make recommendations on a daily basis. Discussed Condition with: Patient Myron Woodward MD Sep 30, 2016 09:37
[2016-09-30] MEDS: ACETAMINOPHEN/HYDROcodone 325 MG/7.5 MG TAB PO PRN (11:09)
--- NOTE | 2016-09-30 16:06 | PD.CONS ---
History of Present Illness Service Infectious disease Consult Requested By Dr Sophia Woodward Reason for Consult Evaluate patient with fungal infection of the right hip Primary Care Physician Myron Woodward MD Diagnoses: History of Present Illness Patient seen and examined. Records reviewed. Patient is a 51-year-old male with known history of asthma, admitted to the hospital for further evaluation of his shortness of breath. Patient states that he was having significant pain in his right hip and this usually exacerbates his breathing problem. He denies any congestion or coughing or any chest pain. Patient's history is significant for recent problem with his right hip. He has a diagnosis of avascular necrosis of the right hip, and back in July he was hospitalized and was suspected to have septic right hip joint. Cultures from the right hip was negative, and the patient was given vancomycin for 6 weeks. He was readmitted August 08 for persistent problem, and he underwent right total hip arthroplasty and placement of an antibiotic cement beads. Cultures at that time grew rare growth of Ghada albicans. He was discharge on Diflucan 400 mg by mouth daily with plans of completing 3 months of treatment. He was readmitted August 29 and at that time he was having breathing problem and was being treated for pneumonia. He was still complaining of pain in the right hip and he had undergone imaging study on the pelvis which showed complex fluid collection in the right hip which was felt to be a hematoma. There was an aspiration done on the fluid collection and that came back negative. Patient was discharged September 26, and on the day of admission he was having severe pain in the right hip, and the noted discoloration on the right hip and lateral thigh that looks like an evolving hematoma. Due to the severe pain, he is breathing started getting worse, so the patient was brought to the hospital for further evaluation and treatment. He has not had any fever or chills or sweats. There's been no further nausea or vomiting which was a problem when he was here in the hospital last time. No diarrhea. He denies any urinary complaints. Patient had an ultrasound of the right lower extremity and there is evidence of fluid collection in the right hip. Patient has been getting IV micafungin and oral Diflucan since he was discharged from the hospital. The plan was for him to ge the antifungal treatment until November 20. Infectious disease consultation has been requested to evaluate the patient. Review of Systems Constitutional: DENIES: Fever, Chills, Night Sweats Ears, nose, mouth, throat: DENIES: Oral lesions, Throat pain, Ear Pain, Sinus Pain, Toothache Respiratory: COMPLAINS OF: Wheezing, Shortness of breath, DENIES: Cough, Sputum production Cardiovascular: DENIES: Chest pain, Syncope Gastrointestinal: COMPLAINS OF: Nausea, DENIES: Abdominal pain, Diarrhea, Vomiting Genitourinary: DENIES: Dysuria Musculoskeletal: COMPLAINS OF: Joint pain Integumentary: COMPLAINS OF: Rash Immunologic/allergic: DENIES: Urticaria Neurologic: DENIES: Headache Psychiatric: COMPLAINS OF: Anxiety Past Family Social History Allergies: Coded Allergies: Tetracycline (Verified Allergy, Severe, throat swells, 09/29/16) Demerol (Verified Allergy, Intermediate, hallucinations, 09/29/16) Past Medical History DVT right lower extremity Pulmonary embolism Asthma Hyperlipidemia Past Surgical History Previous hip surgery Recent right total hip arthroplasty August 09, 2016 Active Ordered Medications [place] Albuterol Lipitor Symbicort 17 Cardizem Diflucan Dilaudid Ativan Solu-Medrol Singulair Protonix Potassium Phenergan and codeine Carafate Ultram Coumadin Social History No smoking history Occasional alcohol use No illicit drug use Physical Exam Vital Signs Vital Signs Date Time Temp Pulse Resp B/P Pulse Ox O2 Delivery O2 Flow Rate FiO2 09/30/16 14:45 18 09/30/16 12:21 18 09/30/16 11:47 97.8 101 20 158/99 98 09/30/16 08:06 96 Nasal Cannula 3.00 09/30/16 07:47 97.8 98 20 149/97 98 09/30/16 05:23 97.5 96 20 162/97 96 09/30/16 01:02 97.6 107 20 143/98 96 09/30/16 00:20 98 Nasal Cannula 2.00 09/29/16 20:24 97.0 115 16 165/91 98 Physical Exam GENERAL: This is a well-nourished, well-developed male, awake and alert, not in any respiratory distress at the time my exam. SKIN: Cool and dry. No generalized rash or ecchymosis. HEAD: Atraumatic. Normocephalic. No temporal or scalp tenderness. EYES: [place] conjunctivae. Pupils equal round and reactive. Extraocular movements full and intact. No scleral icterus. No injection or drainage. ENT: Nose without bleeding, or purulent drainage. Moist oral mucosa. Throat without erythema, tonsillar hypertrophy or exudate. Uvula midline. Airway patent. NECK: Trachea midline. No JVD or lymphadenopathy. Supple, nontender, no meningeal signs. CARDIOVASCULAR: Regular rate and rhythm without murmurs, gallops, or rubs. RESPIRATORY: Breath sounds equal bilaterally. Has scattered wheezing bilaterally. GASTROINTESTINAL: Abdomen globular, slightly distended, non-tender. Bowel sounds are present and normoactive. No guarding no rebound. No organomegaly. MUSCULOSKELETAL: Extremities without clubbing, cyanosis, or edema. Has a well- healed incision on the right lateral thigh. There is a large area of ecchymosis , and the skin is indurated. No calf tenderness. Negative Homans sign bilaterally. Has decreased range of motion in the right hip joint, able to flex at about 30 NEUROLOGICAL: Awake and alert. Cranial nerves II through XII intact. Motor and sensory grossly within normal limits. Five out of 5 muscle strength in all muscle groups. Normal speech. PSYCH: Normal affect, calm and cooperative LINE: PICC RUE with no evidence of infection Laboratory Laboratory Tests Test 09/29/16 09/30/16 18:24 06:15 Prothrombin Time 23.6 26.8 Prothromb Time International 2.1 2.3 Ratio Result Diagram: 09/29/16 1116 09/29/16 1116 Imaging RADIOLOGY STUDIES/FILMS REVIEWED Chest X-Ray 09/29/16 1100 Signed Impressions: Service Date/Time: Thursday, September 29, 2016 11:14 - CONCLUSION: No acute cardiopulmonary abnormality is identified. Adin Cheema MD Lower Extremity Ultrasound 09/29/16 0000 Signed Impressions: Service Date/Time: Thursday, September 29, 2016 18:02 - CONCLUSION: 1. Hypoechoic areas with measurements above subjacent and anterior to the right hip incision line. 2. Findings are nonspecific but likely represent resolving hematoma/seroma. Abscess cannot be completely excluded. Please correlate with clinical presentation. Russ Morrison MD Assessment and Plan Assessment and Plan IMPRESSION Worsening R hip pain, patient with known complex fluid collection R hip, sterile on aspiration, felt to be a hematoma Ghada R hip infection, S/P RTHA / Known asthma, with exacerbation - CXR clear - has been on Abx for PNA Hx DVT RLE and PE RECOMMENDATION Ortho has been consulted Continue Diflucan Restart Micafungin CT pelvis to reevaluate the fluid collection Recheck ESR and CRP Stop Ceftin - patient has received a very long course of Abx for his PNA Pulmonary following patient Monitor progress I will follow along with you Thank you for this consultation Discussed Condition With Explained plan to patient and Aria Hassan MD Sep 30, 2016 16:06
[2016-09-30] MEDS: WARFARIN SOD 2.5 MG TAB PO SCH (16:09)
[2016-09-30] MEDS: MICAFUNGIN INJ 150 MG in SODIUM CHLORIDE 0.9% INJ 100 ML IV SCH (16:44)
--- NOTE | 2016-09-30 16:55 | RADRPT ---
EXAM DATE/TIME: 09/30/2016 16:30 This report includes an Addendum and supersedes previous reports for this exam. [facility] COMPARISON: HIP RIGHT (AP&LAT 2/3VWS) WO AP PELVIS, August 09, 2016, 17:46. INDICATIONS : Right hip fluid collection. ORAL CONTRAST: No oral contrast ingested. RADIATION DOSE: 13.76 CTDIvol (mGy) MEDICAL HISTORY : None SURGICAL HISTORY : Hip replacement, right. ENCOUNTER: Initial ACUITY: 1 month PAIN SCALE: 8/10 LOCATION: Right hip TECHNIQUE: Volumetric scanning of the pelvis was performed. Using automated exposure control and adjustment of the mA and/or kV according to patient size, radiation dose was kept as low as reasonably achievable t o obtain optimal diagnostic quality images. FINDINGS: There is a total hip prosthesis in place on the right which appears to be well-seated. Crescentic pos terior to this is a encapsulated fluid collection vertical dimension 12 cm and crescentic behind the hip joint space. CONCLUSION: Right total hip prosthesis in place adjacent and inferior to this a somewhat crescentic to ovoid 12 c m fluid collection Abdirashid Diaz MD on September 30, 2016 at 16:49 Board Certified Radiologist. This report was verified electronically. ADDENDUM: Relative to prior CT scan of 17 September 2016 the fluid collection is slightly diminish ed in size from 15.0 x 11.2 now 12.0 x 8.5 cm. COMPARISON: CT PELVIS W/O CONTRAST, September 17, 2016, 10:53. Abdirashid Diaz MD on October 01, 2016 at 13:57 Board Certified Radiologist. This report was verified electronically.
[2016-09-30] MEDS: MONTELUKAST SODIUM 10 MG TAB PO SCH (20:25)
[2016-09-30] MEDS: ATORVASTATIN 20 MG TAB PO SCH (20:25)
[2016-09-30 22:54] LABS: INTERNATIONAL NORMALIZED RATIO 2.6 RATIO; PROTHROMBIN TIME - PATIENT 29.8 SEC (9.8-11.6)
[2016-10-01] VITALS (8 sets, daily range): BP systolic 131–159; BP diastolic 76–93; PULSE 67–112; RESP 18–20; TEMP 97.8–98.3; O2SAT 95–98
[2016-10-01] MEDS: methylPREDNISolone SOD SUCC 125 MG/2 ML VIAL IV PUSH SCH ×5 (00:05→23:59)
[2016-10-01] MEDS: HYDROmorphone HCL PF 1 MG/ML VIAL IV PUSH PRN ×5 (00:05→20:55)
[2016-10-01] MEDS: RESP: ALBUTEROL 2.5 MG/IPRATROPIUM 0.5 MG NEB (PRN) NEB ×4 (04:15→19:52)
[2016-10-01 04:17] LABS: AUTOMATED NEUTROPHIL # 8.1 TH/MM3 (1.8-7.7); BASOPHIL % 0.1 % (0.0-2.0); HEMATOCRIT 27.3 % (39.0-51.0); LYMPH % 7.4 % (9.0-44.0); LYMPHOCYTE # 0.7 TH/MM3 (1.0-4.8); MEAN CELL VOLUME 78.7 FL (80.0-100.0); MEAN CORPUSCULAR HEMOGLOBIN 25.1 PG (27.0-34.0); MEAN CORPUSCULAR HGB CONC 31.8 % (32.0-36.0); MONO % 4.2 % (0.0-8.0); NEUT % 88.3 % (16.0-70.0); PLATELET COUNT 382 TH/MM3 (150-450); RED BLOOD COUNT 3.47 MIL/MM3 (4.50-5.90); RED CELL DISTRIBUTION WIDTH 25.7 % (11.6-17.2); WHITE BLOOD COUNT 9.1 TH/MM3 (4.0-11.0)
[2016-10-01 04:25] LABS: HEMO FLAGS AUTO DIFF
[2016-10-01 04:50] LABS: ALKALINE PHOSPHATASE 117 U/L (45-117); ALT (GPT) 80 U/L (12-78); ANION GAP 11 MEQ/L (5-15); AST (GOT) 33 U/L (15-37); BICARBONATE 25.8 MEQ/L (21.0-32.0); BLOOD UREA NITROGEN 21 MG/DL (7-18); CHLORIDE 99 MEQ/L (98-107); GLOMERULAR FILTRATION RATE 83 ML/MIN (>89); POTASSIUM 4.1 MEQ/L (3.5-5.1); SODIUM (NA) 136 MEQ/L (136-145); TOTAL BILIRUBIN ADULT 0.4 MG/DL (0.2-1.0)
--- NOTE | 2016-10-01 07:02 | HHI.PR ---
Subjective History of Present Illness Patient have sever wheezing and pain Right hip ultrasound noted orthopedic input noted getting needle drainage of hematoma right hip and getting right hip hardware removed from right hip soon. Hold coumadin high blood sugar start ISS + Levemir 15 units subcut. hs. D/W Patient and at bed side. Review of Systems Constitutional Constitutional: Fatigue, Weakness Pulmonary Respiratory: Shortness of Breath, Wheezing Musculoskeletal MS Remarks Right Hip pain/ swelling. Integumentary Skin Remarks right hip bruise. Vitals/Results Intake & Output 09/30/16 09/30/16 10/01/16 15:00 23:00 07:00 Intake Total 240 ml Output Total 450 ml 600 ml 1900 ml Balance -450 ml -600 ml -1660 ml Intake Oral 240 ml Output Urine Total 450 ml 600 ml 1900 ml # Voids 2 Vital Signs Vital Signs Date Time Temp Pulse Resp B/P Pulse Ox O2 Delivery O2 Flow Rate FiO2 10/01/16 06:26 16 10/01/16 03:59 98.0 87 18 159/92 98 10/01/16 01:14 98.0 87 18 133/76 97 09/30/16 20:39 97 Nasal Cannula 3.00 09/30/16 19:28 98.8 97 18 155/91 98 09/30/16 16:21 114 22 137/87 93 09/30/16 12:21 18 09/30/16 11:47 97.8 101 20 158/99 98 09/30/16 08:06 96 Nasal Cannula 3.00 09/30/16 07:47 97.8 98 20 149/97 98 CBC/BMP: 10/01/16 0400 10/01/16 0400 Lab Results Laboratory Tests Test 09/30/16 10/01/16 22:25 04:00 Prothrombin Time 29.8 SEC Prothromb Time International 2.6 RATIO Ratio White Blood Count 9.1 TH/MM3 Red Blood Count 3.47 MIL/MM3 Hemoglobin 8.7 GM/DL Hematocrit 27.3 % Mean Corpuscular Volume 78.7 FL Mean Corpuscular Hemoglobin 25.1 PG Mean Corpuscular Hemoglobin 31.8 % Concent Red Cell Distribution Width 25.7 % Platelet Count 382 TH/MM3 Mean Platelet Volume 6.6 FL Neutrophils (%) (Auto) 88.3 % Lymphocytes (%) (Auto) 7.4 % Monocytes (%) (Auto) 4.2 % Eosinophils (%) (Auto) 0.0 % Basophils (%) (Auto) 0.1 % Neutrophils # (Auto) 8.1 TH/MM3 Lymphocytes # (Auto) 0.7 TH/MM3 Monocytes # (Auto) 0.4 TH/MM3 Eosinophils # (Auto) 0.0 TH/MM3 Basophils # (Auto) 0.0 TH/MM3 CBC Comment AUTO DIFF Erythrocyte Sedimentation Rate 24 mm/hr Sodium Level 136 MEQ/L Potassium Level 4.1 MEQ/L Chloride Level 99 MEQ/L Carbon Dioxide Level 25.8 MEQ/L Anion Gap 11 MEQ/L Blood Urea Nitrogen 21 MG/DL Creatinine 0.95 MG/DL Estimat Glomerular Filtration 83 ML/MIN Rate Random Glucose 292 MG/DL Calcium Level 9.1 MG/DL Total Bilirubin 0.4 MG/DL Aspartate Amino Transf 33 U/L (AST/SGOT) Alanine Aminotransferase 80 U/L (ALT/SGPT) Alkaline Phosphatase 117 U/L C-Reactive Protein 0.42 MG/DL Total Protein 6.2 GM/DL Albumin 3.3 GM/DL Physical Exam General General Appearance: No Acute Distress, Comfortable Eyes Eye Exam: Pupils Equal, Pupils Reactive, Sclera White, Extraocular Movement Intact Throat Throat Exam: Oral Mucosa [place] & Moist, Oral Pharynx Normal Neck Neck Exam: Neck Supple, Trachea Midline Pulmonary Resp Exam: Crackles, Diminished Breath Sounds Resp Remarks Sever Bilateral Wheezing. Cardiology CV Exam: Regular, Normal Sinus Rhythm Gastrointestinal/Abdomen GI Exam: Soft, Non-Tender, Bowel Sounds Present, Distended Musculoskeletal MS Exam: Normal Tone Integumentary Skin Exam: Warm, Dry Extremeties Extremities Exam: No Edema Neurologic Neuro Exam: Alert, Awake, Oriented, Speech Clear, Moving All Extremities, Electronics Tester Equal, No Focal Deficits VTE Prophylaxis VTE Prophylaxis Meds: Coumadin PUD Prophylasis PUD Prophylaxis: Protonix Assessment/Plan Assessment/Plan ASSESSMENT AND PLAN: 1. This is a 51-year-old male who came to the emergency room diagnosed with shortness of breath and wheezing secondary to asthma exacerbation. The patient on solumedrol 60 milligrams IV q.6 h and also Xopenex and Atrovent nebulization and pulmonary input noted. The patient is on oxygen. Further recommendation per pulmonary. 2. History for right hip infection with fungus. The patient is on Diflucan. He has right hip swelling and pain. Right hip ultrasound noted CT Pelvis shows fluid collection orthopedic input noted getting needle drainage of hematoma right hip and getting right hip hardware removed soon. 3. Septic right hip. The patient is on Diflucan + Micafungin... Infectious disease input noted.. Will monitor. 4. History of chronic obstructive pulmonary disease. Continue home medications. 5. History of depression. Continue home medications. 6. History of anxiety. Continue with Ativan 0.5 milligrams twice a day. 7. Right hip pain. The patient on tramadol and [place] and also Dilaudid 0.5 milligrams p.o. q. 6 hours PRN pain. 8. History of hyperlipidemia. Continue on Lipitor 20 milligrams p.o. daily. 9. DVT prophylaxis. The patient is off coumadin. INR is therapeutic. 10. GI prophylaxis. Protonix 40 milligrams p.o. daily. The patient is also on Carafate 1 gram p.o. three times a day. 11. History of pulmonary embolism and DVT right leg. The patient is off coumadin and INR is therapeutic. Will monitor INR daily. 12. High blood sugar start ISS + Levemir 15 units subcut. HS. monitoring blood glucose. Check CBC with diff CMP in AM. We are going to manage the patient on a daily basis and make recommendations on a daily basis. Discussed Condition with: Patient, Spouse Myron Woodward MD Oct 01, 2016 07:02 Myron Woodward MD Oct 01, 2016 07:02
[2016-10-01 07:04] LABS: BANDS 2 % (0-6); BASOPHILS 1 % (0-2); CORRECTED NUCLEATED RBC 4 /100 WBC (0-0); METAMYELOCYTES 3 % (0-1); MYELOCYTES 3 % (0-0); NEUTROPHIL # MANUAL DIFF 8.1 TH/MM3 (1.8-7.7); POLYS (SEG NEUTROPHILS) 81 % (16-70); WBC DIFF SAMPLE 100
[2016-10-01 07:05] LABS: TEARDROP RBCS 1+ (NORMAL)
[2016-10-01 07:06] LABS: OVALOCYTES 1+ (NORMAL); PLATELET ESTIMATE SMEAR NORMAL (NORMAL); PLATELET MORPHOLOGY NORMAL (NORMAL); SCAN/DIFF FINAL DIFF MANUAL
[2016-10-01] MEDS: PANTOPRAZOLE SOD 40 MG DELAYED RELEASE TAB PO SCH (09:24)
[2016-10-01] MEDS: LORazepam 0.5 MG TAB PO SCH ×2 (09:24→20:53)
[2016-10-01] MEDS: FLUCONAZOLE 200 MG TAB PO SCH (09:24)
[2016-10-01] MEDS: POTASSIUM CHLORIDE 10 MEQ CONTROLLED RELEASE TAB PO SCH ×2 (09:24→20:53)
[2016-10-01] MEDS: SUCRALFATE 1 GM TAB PO SCH ×3 (09:24→17:59)
[2016-10-01] MEDS: BUDESONIDE-FORMOTEROL 160/4.5 MCG INHALER INH SCH ×2 (09:25→20:54)
[2016-10-01] MEDS: DILTIAZEM-CD 180 MG CAP ER PO SCH (10:08)
--- NOTE | 2016-10-01 11:55 | MB ---
cc: JES PUGA DATE OF CONSULTATION: 10/01/2016 REASON FOR CONSULTATION Recurrent pain, right hip. HISTORY OF PRESENT ILLNESS This patient has been in and out of the hospital several times in the last year, particularly recently. He has mainly been admitted for recurrent episodes of asthma. He is treated with high doses of steroids. About 10 weeks ago he ended up with a septic right hip joint which was treated with aspiration followed by arthrotomy. He was treated with IV antibiotics. Cultures were negative. Four weeks post op he had recurrence of infection, now with osteomyelitis on MRI prompting excision of femoral head and implantation of 'Prostolac' articulating spacer with antbiotic loaded cement. 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 ID put him on IV and later oral Diflucan. [facility]ro[facility]ungin was added. He responded promptly, A CT scan sep 17 showed fluid collection, deemed to be hematoma upon aspiration by radiologist. Sed rate was 1. The Gram stain showed few wbc's, no bacteria. Cultures were negative for bacteria and fungus. He was discharged just last week with a benign-looking hip but re-admitted two days ago with again status asthmaticus and pain in the right hip. He is complaining of increasing pain and a CT scan was done yesterday. PHYSICAL EXAMINATION Physical examination today reveals that he has swelling and ecchymosis anterior to the surgical scar. It is still indurated like it has been. No warmth but there is some erythema. There is painful range of motion of the right hip. IMAGING CT scan shows a fluid collection behind the right hip joint at least 10 cm long and several centimeters wide. IMPRESSION It may be a hematoma but recurrent fluid collections would indicate that he is not responding to the antifungal regimen at this point and therefore serious consideration has to be given for reentering that hip joint and decide whether to do a [place] procedure or replace it with antifungal medication loaded hemiarthroplasty with a cement spacer. PLAN We are going to have him aspirated today by the radiologist. He will be fine. Will consult Infectious Disease and hen make a decision as to how to proceed. I will discuss his situation with his today. MD PETE Christiansen/BLAYNE /7:47 AM /11:38 AM PAUL
[2016-10-01] MEDS ORDERED: GLUCAGON 1 MG/ML VIAL OTHER PRN ×2 (13:15→13:30)
[2016-10-01] MEDS ORDERED: DEXTROSE 50% IN WATER 50 ML VIAL(D50) IV PUSH PRN ×2 (13:15→13:30)
--- NOTE | 2016-10-01 14:07 | PD.RAD ---
Post Procedure Progress Note Pre Procedure Diagnosis: (1) Abscess of hip, right Post Procedure Diagnosis: (1) Abscess of hip, right Procedure Date: Oct 01, 2016 Supervising Radiologist: Félix Oneil Proceduralist/Assist: RT Vickey(R) Anesthesia: Local Plan of Activity Patient to Unit: Nursing Unit Patient Condition: Good See PACS Report for procedural detail/treatment Drainage Procedure Procedure 1 Imaging Guidance: Ultrasound Side: Right Procedure Type: Aspiration Fluid Removal (CCs): 2 Fluid Description: Bloody Félix Oneil MD Oct 01, 2016 14:07
[2016-10-01] MEDS ORDERED: PHYTONADIONE 10 MG/ML VIAL SQ ONE (15:00)
[2016-10-01 15:15] LABS: WBC, SYNOVIAL FLUID ND /MM3 (0-200)
[2016-10-01 15:18] LABS: INTERNATIONAL NORMALIZED RATIO 3.2 RATIO; PROTHROMBIN TIME - PATIENT 36.9 SEC (9.8-11.6)
--- NOTE | 2016-10-01 15:39 | RADRPT ---
EXAM DATE/TIME: 10/01/2016 13:44 CORRECTION Corrected on: October 04, 2016; CORRECTION: Corrected examform information. [facility] COMPARISON: ASPIRATION, HIP, RIGHT, July 10, 2016, 14:00. INDICATIONS : Right hip pain. MEDICAL HISTORY : 1. Septic Rt hip 2. COPD 3. Depression 4.DVT 5.PE 6. Asthma 7. GERD SURGICAL HISTORY : 1.Bilatersl hip surgies 2.Tonsillectomy 3. Appendectomy ENCOUNTER: Initial ACUITY: 3 days PAIN SCORE: 4/10 LOCATION: Right hip DEVICE(S): 18 gauge needle was placed into the right hip joint. FLUID: Total volume of1 cc of dark red fluid was removed. Fluid specimen was submitted to the lab for evaluation. PROCEDURE : 1. Fluoroscopically guided soft tissue aspiration aspiration. The risks, benefits and alternatives to the procedure were explained and verbal and written consent w as obtained. The site was prepped in sterile fashion. Full sterile technique was used, including ca p, mask, sterile gloves and gown and a large sterile sheet. Hand hygiene and 2% chlorhexidine and/or betadine/alcohol prep was utilized per protocol for cutaneous antisepsis. The skin and subcutaneous tissues were infiltrated with local anesthetic solution. A hypoechoic fluid collection deep to the gluteus axis muscle was aspirated and a specimen sent to e lab. The appearance is more that of hematoma than abscess. The patient tolerated the procedure well and there were no complications. CONCLUSION: Uncomplicated aspiration as above. Félix Oneil MD on October 01, 2016 at 15:37 Board Certified Radiologist. This report was verified electronically. DR Bhat on October 04, 2016 at 11:12 Board Certified Radiologist. This report was verified electronically.
--- NOTE | 2016-10-01 16:11 | MB ---
cc: YOLANDE YO M.D. DATE OF CONSULTATION 10/01/2016 HISTORY Philip is a very pleasant 51-year-old gentleman with a history of severe chronic asthma, also brittle asthma, status post right hip replacement with fungal infection presents with shortness of breath, wheezing, expiratory wheezing, right hip pain. At the time I saw him he had just finished having a hip aspiration, bone aspiration. Denies chest pain, fevers, chills, GI or bleeding, PND, orthopnea, syncope or dizziness. PAST MEDICAL HISTORY Per history of present illness. 1. He has a history of arthritis. 2. Depression and anxiety. 3. Hyperlipidemia. 4. Pneumonia. 5. Deep venous thrombosis December 2015. 6. Appendectomy. SOCIAL HISTORY Denies tobacco or alcohol use. ALLERGIES TETRACYCLINE, DEMEROL. MEDICATIONS Prior to admission: 1. Ativan. 2. Klor-Con. 3. Prednisone 10 milligrams daily. 4. Ultram. 5. Coumadin 2.5 daily. 6. Ceftin. 7. Lovenox 100 milligrams subcutaneous twice a day. 8. Promethazine. 9. Fluconazole. 10. Lortab. 11. Protonix. 12. DuoNeb. 13. Diltiazem CD 360. 14. Symbicort. 15. Singulair. 16. Lipitor 20. 17. Carafate. 18. I believe albuterol. Medications in the hospital: 1. Insulin. 2. Micafungin IV. 3. Cardizem 360 daily. 4. Fluconazole 400 daily. 5. Pantoprazole 40 daily. 6. Atorvastatin 20 bedtime. 7. Symbicort. 8. Singulair 10 bedtime. 9. Potassium 10 milliequivalents q.12h. 10. Sucralfate one gram t.i.d. 11. Methylprednisolone 60 q.6h IV. 12. Warfarin which has been discontinued. 13. Albuterol. PHYSICAL EXAMINATION VITAL SIGNS: Blood pressure 157/90, pulse 112 pulse ranging between 87-112, temperature 98.0, respiratory 19, sats 98% on 2 liters nasal cannula. GENERAL: He is alert and oriented times three in mild distress. NECK: Supple. No JVD or bruit. CARDIOVASCULAR: S1-S2. No murmurs, rubs, or gallops. LUNGS: Notable for decreased air movement with increased expiratory and inspiratory ratio. Expiratory wheezing. ABDOMEN: Soft and nontender. Nondistended. Positive bowel sounds. EXTREMITIES: Clubbing, cyanosis or edema. IMAGING A chest x-ray shows no acute cardiopulmonary abnormality identified. EKG shows sinus tachycardia at 120 beats per minute, small nondiagnostic inferior Q-waves. LABORATORY DATA White count is 9.1, hemoglobin 8.7, hematocrit 27.3, platelet count 382. BNP 38. Troponin less than 0.02. Sodium 136, potassium 4.1, chloride 99, bicarbonate 25.8, BUN 21, creatinine 0.95. ALT is 80. Glucose 292. INR 2.6. FINAL DIAGNOSES 1. Asthma 2. History of DVT. 3. Possible right hip infection. 4. Anemia. DISCUSSION At this point in time there is no obvious evidence of ischemia. The cardiac enzymes and EKG are normal. BNP is normal. Suspect his symptoms of shortness of breath are secondary to wheezing which the patient confirms that he has chronic wheezing with chronic shortness of breath with no acute changes. He is stable status post hip aspiration procedure, special procedures. MD NELSON Shipman/DEREK /2:28 PM /3:37 PM
[2016-10-01] MEDS: INSULIN ASPART SUPPLEMENTAL SCALE SQ SCH ×2 (16:54→20:54)
[2016-10-01] MEDS: MICAFUNGIN INJ 150 MG in SODIUM CHLORIDE 0.9% INJ 100 ML IV SCH (18:25)
[2016-10-01] MEDS: MONTELUKAST SODIUM 10 MG TAB PO SCH (20:53)
[2016-10-01] MEDS: ATORVASTATIN 20 MG TAB PO SCH (20:53)
[2016-10-01] MEDS: INSULIN DETEMIR 100 UNITS/ML VIAL SQ SCH (20:54)
[2016-10-01 20:59] LABS: INTERNATIONAL NORMALIZED RATIO 3.5 RATIO; PROTHROMBIN TIME - PATIENT 40.5 SEC (9.8-11.6)
[2016-10-01] MEDS: RESP: ALBUTEROL 2.5 MG/IPRATROPIUM 0.5 MG NEB (SCH) NEB (23:33)
[2016-10-02 04:57] VITALS: BP 134/87; PULSE 54; RESP 18; TEMP 98; O2SAT 98
[2016-10-02 04:57] LABS: AUTOMATED NEUTROPHIL # 8.4 TH/MM3 (1.8-7.7); BASOPHIL % 0.1 % (0.0-2.0); HEMATOCRIT 26.1 % (39.0-51.0); LYMPH % 7.1 % (9.0-44.0); LYMPHOCYTE # 0.7 TH/MM3 (1.0-4.8); MEAN CELL VOLUME 78.2 FL (80.0-100.0); MONO % 4.7 % (0.0-8.0); NEUT % 88.1 % (16.0-70.0); PLATELET COUNT 333 TH/MM3 (150-450); RED BLOOD COUNT 3.34 MIL/MM3 (4.50-5.90); RED CELL DISTRIBUTION WIDTH 25.5 % (11.6-17.2); WHITE BLOOD COUNT 9.6 TH/MM3 (4.0-11.0)
[2016-10-02 05:03] LABS: HEMO FLAGS AUTO DIFF
[2016-10-02 05:07] LABS: INTERNATIONAL NORMALIZED RATIO 3.2 RATIO; PROTHROMBIN TIME - PATIENT 37.4 SEC (9.8-11.6)
[2016-10-02] MEDS: RESP: ALBUTEROL 2.5 MG/IPRATROPIUM 0.5 MG NEB (SCH) NEB ×6 (05:07→23:54)
[2016-10-02 05:25] LABS: ANION GAP 11 MEQ/L (5-15); BICARBONATE 28.6 MEQ/L (21.0-32.0); BLOOD UREA NITROGEN 19 MG/DL (7-18); CHLORIDE 98 MEQ/L (98-107); GLOMERULAR FILTRATION RATE 99 ML/MIN (>89); SODIUM (NA) 138 MEQ/L (136-145)
[2016-10-02 05:28] LABS: ALKALINE PHOSPHATASE 108 U/L (45-117); ALT (GPT) 65 U/L (12-78); AST (GOT) 20 U/L (15-37); TOTAL BILIRUBIN ADULT 0.4 MG/DL (0.2-1.0)
[2016-10-02] MEDS: INSULIN ASPART SUPPLEMENTAL SCALE SQ SCH ×4 (05:42→21:57)
[2016-10-02] MEDS: methylPREDNISolone SOD SUCC 125 MG/2 ML VIAL IV PUSH SCH ×3 (05:43→17:10)
[2016-10-02] MEDS: HYDROmorphone HCL PF 1 MG/ML VIAL IV PUSH PRN ×3 (05:44→11:51)
[2016-10-02 07:10] LABS: BANDS 1 % (0-6); METAMYELOCYTES 1 % (0-1); MYELOCYTES 1 % (0-0); NEUTROPHIL # MANUAL DIFF 8.5 TH/MM3 (1.8-7.7); PLATELET ESTIMATE SMEAR NORMAL (NORMAL); PLATELET MORPHOLOGY NORMAL (NORMAL); POLYS (SEG NEUTROPHILS) 86 % (16-70); SCAN/DIFF FINAL DIFF MANUAL; WBC DIFF SAMPLE 100
[2016-10-02 07:31] VITALS: O2SAT 97
[2016-10-02 08:05] VITALS: BP 152/91; PULSE 89; RESP 19; TEMP 98; O2SAT 95
[2016-10-02] MEDS: FLUCONAZOLE 200 MG TAB PO SCH (08:35)
[2016-10-02] MEDS: DILTIAZEM-CD 180 MG CAP ER PO SCH (08:35)
[2016-10-02] MEDS: LORazepam 0.5 MG TAB PO SCH ×2 (08:35→21:58)
[2016-10-02] MEDS: PANTOPRAZOLE SOD 40 MG DELAYED RELEASE TAB PO SCH (08:35)
[2016-10-02] MEDS: SODIUM CHLORIDE 0.9% FLUSH 5 ML FLUSH IVF PRN (08:35)
[2016-10-02] MEDS: POTASSIUM CHLORIDE 10 MEQ CONTROLLED RELEASE TAB PO SCH ×2 (08:35→21:58)
[2016-10-02] MEDS: BUDESONIDE-FORMOTEROL 160/4.5 MCG INHALER INH SCH ×2 (08:36→22:00)
--- NOTE | 2016-10-02 08:40 | HHI.PR ---
Subjective History of Present Illness Patient have sever wheezing and pain Right hip ultrasound noted orthopedic input noted s/p needle drainage of hematoma right hip and getting right hip hardware removed from right hip soon...s/p MRI Right hip shows 12 cm hematoma/ seroma. need needle drainage. Holding coumadin .. high blood sugar on ISS + Levemir 15 units subcut. hs. D/W Patient Review of Systems Constitutional Constitutional: Fatigue, Weakness Pulmonary Respiratory: Shortness of Breath, Wheezing Musculoskeletal MS Remarks Right Hip pain/ swelling. Integumentary Skin Remarks right hip bruise. Vitals/Results Intake & Output 10/01/16 10/01/16 10/02/16 15:00 23:00 07:00 Output Total 700 ml Balance -700 ml Output Urine Total 700 ml Vital Signs Vital Signs Date Time Temp Pulse Resp B/P Pulse Ox O2 Delivery O2 Flow Rate FiO2 10/02/16 08:05 98.0 89 19 152/91 95 10/02/16 07:31 97 High Flow Nasal Cannula 2.00 10/02/16 06:15 16 10/02/16 04:57 98.0 54 18 134/87 98 10/01/16 23:38 98.0 88 18 133/87 97 10/01/16 21:25 98.0 67 18 147/87 98 10/01/16 15:35 97.8 100 20 131/85 98 10/01/16 11:27 98.0 112 19 157/90 95 10/01/16 10:06 98 Nasal Cannula 2.00 CBC/BMP: 10/02/16 0450 10/02/16 0450 Lab Results Laboratory Tests Test 10/01/16 10/01/16 10/01/16 10/01/16 11:40 14:10 14:50 20:16 Troponin I LESS THAN 0.02 NG/ML B-Type Natriuretic Peptide 38 PG/ML Synovial Fluid Color RED Synovial Fluid Appearance BLOODY Synovial Fluid WBC /MM3 Synovial Fluid RBC /MM3 Synovial Fluid Neutrophils 0 % Synovial Fluid Lymphocytes 0 % Synovial Fluid Differential Comment Prothrombin Time 36.9 SEC 40.5 SEC Prothromb Time International 3.2 RATIO 3.5 RATIO Ratio Test 10/02/16 04:50 White Blood Count 9.6 TH/MM3 Red Blood Count 3.34 MIL/MM3 Hemoglobin 8.4 GM/DL Hematocrit 26.1 % Mean Corpuscular Volume 78.2 FL Mean Corpuscular Hemoglobin 25.0 PG Mean Corpuscular Hemoglobin 32.0 % Concent Red Cell Distribution Width 25.5 % Platelet Count 333 TH/MM3 Mean Platelet Volume 6.2 FL Neutrophils (%) (Auto) 88.1 % Lymphocytes (%) (Auto) 7.1 % Monocytes (%) (Auto) 4.7 % Eosinophils (%) (Auto) 0.0 % Basophils (%) (Auto) 0.1 % Neutrophils # (Auto) 8.4 TH/MM3 Lymphocytes # (Auto) 0.7 TH/MM3 Monocytes # (Auto) 0.4 TH/MM3 Eosinophils # (Auto) 0.0 TH/MM3 Basophils # (Auto) 0.0 TH/MM3 CBC Comment AUTO DIFF Differential Total Cells 100 Counted Neutrophils % (Manual) 86 % Band Neutrophils % 1 % Lymphocytes % 8 % Monocytes % 3 % Neutrophils # (Manual) 8.5 TH/MM3 Metamyelocytes 1 % Myelocytes 1 % Differential Comment FINAL DIFF MANUAL Platelet Estimate NORMAL Platelet Morphology Comment NORMAL Basophilic Stippling FAINT Prothrombin Time 37.4 SEC Prothromb Time International 3.2 RATIO Ratio Sodium Level 138 MEQ/L Potassium Level 4.0 MEQ/L Chloride Level 98 MEQ/L Carbon Dioxide Level 28.6 MEQ/L Anion Gap 11 MEQ/L Blood Urea Nitrogen 19 MG/DL Creatinine 0.82 MG/DL Estimat Glomerular Filtration 99 ML/MIN Rate Random Glucose 263 MG/DL Calcium Level 8.8 MG/DL Total Bilirubin 0.4 MG/DL Aspartate Amino Transf 20 U/L (AST/SGOT) Alanine Aminotransferase 65 U/L (ALT/SGPT) Alkaline Phosphatase 108 U/L Total Protein 5.7 GM/DL Albumin 3.2 GM/DL Microbiology Microbiology 10/01/16 Gram Stain - Final, Resulted 10/01/16 Body Fluid Culture, Resulted Pending 10/01/16 Fungal Smear - Final, Resulted NO FUNGAL ELEMENTS SEEN. 10/01/16 Fungal Culture, Resulted Pending Physical Exam General General Appearance: No Acute Distress, Comfortable Eyes Eye Exam: Pupils Equal, Pupils Reactive, Sclera White, Extraocular Movement Intact Throat Throat Exam: Oral Mucosa [place] & Moist, Oral Pharynx Normal Neck Neck Exam: Neck Supple, Trachea Midline Pulmonary Resp Exam: Crackles, Diminished Breath Sounds Resp Remarks Sever Bilateral Wheezing. 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 This is a 51-year-old male who came to the emergency room diagnosed with shortness of breath and wheezing secondary to asthma exacerbation. The patient on solumedrol 60 milligrams IV q.6 h and also Xopenex and Atrovent nebulization and pulmonary input noted. The patient is on oxygen. Further recommendation per pulmonary. 2. History for right hip infection with fungus. The patient is on Diflucan. He has right hip swelling and pain. Right hip ultrasound noted CT Pelvis shows fluid collection orthopedic input noted s/p needle drainage of hematoma right hip and getting right hip hardware removed soon....s/p MRI Right hip shows 12 cm hematoma/seroma. need needle drainage. 3. Septic right hip. The patient is on Diflucan + Micafungin... Infectious disease input noted.. Will monitor. 4. History of chronic obstructive pulmonary disease. Continue home medications. 5. History of depression. Continue home medications. 6. History of anxiety. Continue with Ativan 0.5 milligrams twice a day. 7. Right hip pain. The patient on tramadol and [place] and also Dilaudid 0.5 milligrams p.o. q. 6 hours PRN pain. 8. History of hyperlipidemia. Continue on Lipitor 20 milligrams p.o. daily. 9. DVT prophylaxis. The patient is off coumadin. INR is supratherapeutic. 10. GI prophylaxis. Protonix 40 milligrams p.o. daily. The patient is also on Carafate 1 gram p.o. three times a day. 11. History of pulmonary embolism and DVT right leg. The patient is off coumadin and INR is supratherapeutic. Will monitor INR daily. 12. High blood sugar continue with ISS + Levemir 15 units subcut. HS. monitoring blood glucose. Check CBC with diff CMP in AM. We are going to manage the patient on a daily basis and make recommendations on a daily basis. Discussed Condition with: Patient Myron Woodward MD Oct 02, 2016 08:40
[2016-10-02] MEDS: SUCRALFATE 1 GM TAB PO SCH ×3 (09:00→17:09)
[2016-10-02] MEDS ORDERED: GADODIAMIDE PF 287 MG/ML 20 ML VIAL (for RAD MRI) IV ONE (09:46)
--- NOTE | 2016-10-02 11:13 | RADRPT ---
EXAM DATE/TIME: 10/02/2016 09:13 [facility] COMPARISON: CT PELVIS W/O CONTRAST, September 30, 2016, 16:30. INDICATIONS : Recurrent right hip pain. CONTRAST: 19 cc Omniscan (gadodiamide) IV MEDICAL HISTORY : Asthma. SURGICAL HISTORY : Right MARLENY. ENCOUNTER: Subsequent ACUITY: 1 month PAIN SCORE: 8/10 LOCATION: Right hip. TECHNIQUE: Multiplanar, multisequence MRI examination was performed without contrast and after the intravenous a dministration of gadolinium. FINDINGS: The MRI confirms the presence of a heterogeneous signal circumscribed collection in the soft tissues adjacent to the right hip in this patient post right total hip arthroplasty. The collection appears t o abut the posterior aspect of the femoral neck region and then wrapped posteriorly into the deep glu teal tissues penetrating through the gluteal musculature just lateral to the trochanter where it exte nds into the deep subcutaneous tissues and propagates in a cephalad direction at least to the level o f the mid ileum. Internal signal intensity is heterogeneous suggesting complicated contents, likely e volving blood products. A hypointense peripheral rim is noted without significant surrounding contras t enhancement, features which argue for a benign process such as seroma/hematoma as opposed to an abs cess. Certainly percutaneous sampling or drainage could be easily accomplished if clinically indicate d. Evaluation of the joint itself is impaired by susceptibility artifact from the hardware. Where not ob scured by signal artifact, the bony elements of the pelvis appear grossly unremarkable. CONCLUSION: 12 cm collection in the right hip and buttock region, likely hematoma/seroma. The lesion could certai nly be drained or sampled without difficulty under CT guidance. Adin Guillermo MD on October 02, 2016 at 10:58 Board Certified Radiologist. This report was verified electronically.
[2016-10-02 11:53] VITALS: BP 140/80; PULSE 90; RESP 19; O2SAT 95
[2016-10-02 15:05] VITALS: BP 144/81; PULSE 104; RESP 18; TEMP 98; O2SAT 95
[2016-10-02] MEDS ORDERED: PHYTONADIONE 10 MG/ML VIAL SQ SCH (16:00)
--- NOTE | 2016-10-02 16:42 | PD.CARD.PN ---
Subjective Subjective Remarks feels better Objective Vital Signs / I&O Vital Signs Date Time Temp Pulse Resp B/P Pulse Ox O2 Delivery O2 Flow Rate FiO2 10/02/16 15:05 98.0 104 18 144/81 95 10/02/16 12:21 18 10/02/16 11:53 90 19 140/80 95 10/02/16 08:05 98.0 89 19 152/91 95 10/02/16 07:31 97 High Flow Nasal Cannula 2.00 10/02/16 04:57 98.0 54 18 134/87 98 10/01/16 23:38 98.0 88 18 133/87 97 10/01/16 21:25 98.0 67 18 147/87 98 I/O 10/01/16 10/01/16 10/01/16 10/02/16 10/02/16 10/02/16 07:00 15:00 23:00 07:00 15:00 23:00 Intake Total 240 ml Output Total 1900 ml 700 ml 300 ml Balance -1660 ml -700 ml -300 ml Intake Oral 240 ml Output Urine Total 1900 ml 700 ml 300 ml # Voids 2 Physical Exam GENERAL: SKIN: Warm and dry. HEAD: Normocephalic. EYES: No scleral icterus. No injection or drainage. NECK: Supple, trachea midline. No JVD or lymphadenopathy. CARDIOVASCULAR: Regular rate and rhythm without murmurs, gallops, or rubs. RESPIRATORY: Breath sounds equal bilaterally. No accessory muscle use. GASTROINTESTINAL: Abdomen soft, non-tender, nondistended. MUSCULOSKELETAL: No cyanosis, or edema. BACK: Nontender without obvious deformity. No CVA tenderness. Laboratory Laboratory Tests Test 10/01/16 10/02/16 20:16 04:50 Prothrombin Time 40.5 SEC 37.4 SEC Prothromb Time International 3.5 RATIO 3.2 RATIO Ratio White Blood Count 9.6 TH/MM3 Red Blood Count 3.34 MIL/MM3 Hemoglobin 8.4 GM/DL Hematocrit 26.1 % Mean Corpuscular Volume 78.2 FL Mean Corpuscular Hemoglobin 25.0 PG Mean Corpuscular Hemoglobin 32.0 % Concent Red Cell Distribution Width 25.5 % Platelet Count 333 TH/MM3 Mean Platelet Volume 6.2 FL Neutrophils (%) (Auto) 88.1 % Lymphocytes (%) (Auto) 7.1 % Monocytes (%) (Auto) 4.7 % Eosinophils (%) (Auto) 0.0 % Basophils (%) (Auto) 0.1 % Neutrophils # (Auto) 8.4 TH/MM3 Lymphocytes # (Auto) 0.7 TH/MM3 Monocytes # (Auto) 0.4 TH/MM3 Eosinophils # (Auto) 0.0 TH/MM3 Basophils # (Auto) 0.0 TH/MM3 CBC Comment AUTO DIFF Differential Total Cells 100 Counted Neutrophils % (Manual) 86 % Band Neutrophils % 1 % Lymphocytes % 8 % Monocytes % 3 % Neutrophils # (Manual) 8.5 TH/MM3 Metamyelocytes 1 % Myelocytes 1 % Differential Comment FINAL DIFF MANUAL Platelet Estimate NORMAL Platelet Morphology Comment NORMAL Basophilic Stippling FAINT Erythrocyte Sedimentation Rate 19 mm/hr Sodium Level 138 MEQ/L Potassium Level 4.0 MEQ/L Chloride Level 98 MEQ/L Carbon Dioxide Level 28.6 MEQ/L Anion Gap 11 MEQ/L Blood Urea Nitrogen 19 MG/DL Creatinine 0.82 MG/DL Estimat Glomerular Filtration 99 ML/MIN Rate Random Glucose 263 MG/DL Calcium Level 8.8 MG/DL Total Bilirubin 0.4 MG/DL Aspartate Amino Transf 20 U/L (AST/SGOT) Alanine Aminotransferase 65 U/L (ALT/SGPT) Alkaline Phosphatase 108 U/L C-Reactive Protein 0.33 MG/DL Total Protein 5.7 GM/DL Albumin 3.2 GM/DL Assessment and Plan Problem List: (1) Pulmonary embolism (2) Chronic obstructive pulmonary disease (3) Acute asthma exacerbation Assessment and Plan 1.) asthma - no evidence of chf or ischemic etiology Problem Qualifiers (1) Chronic obstructive pulmonary disease: Qualified Code: J44.1 - Chronic obstructive pulmonary disease with acute exacerbation (2) Acute asthma exacerbation: Qualified Code: J45.51 - Severe persistent asthma with acute exacerbation Jluis Morris MD Oct 02, 2016 16:41
[2016-10-02] MEDS: MICAFUNGIN INJ 150 MG in SODIUM CHLORIDE 0.9% INJ 100 ML IV SCH (17:10)
--- NOTE | 2016-10-02 17:55 | PD.ORT.PN ---
Subjective Post Op Day #: 54 Pain Scale: 7 down to 5 with dilaudid Subjective Remarks no change Objective Vitals Vital Signs Date Time Temp Pulse Resp B/P Pulse Ox O2 Delivery O2 Flow Rate FiO2 10/02/16 15:05 98.0 104 18 144/81 95 10/02/16 12:21 18 10/02/16 11:53 90 19 140/80 95 10/02/16 08:05 98.0 89 19 152/91 95 10/02/16 07:31 97 High Flow Nasal Cannula 2.00 10/02/16 04:57 98.0 54 18 134/87 98 10/01/16 23:38 98.0 88 18 133/87 97 10/01/16 21:25 98.0 67 18 147/87 98 I/O 10/01/16 10/01/16 10/01/16 10/02/16 10/02/16 10/02/16 07:00 15:00 23:00 07:00 15:00 23:00 Intake Total 240 ml Output Total 1900 ml 700 ml 300 ml Balance -1660 ml -700 ml -300 ml Intake Oral 240 ml Output Urine Total 1900 ml 700 ml 300 ml # Voids 2 Result Diagram: 10/02/16 0450 10/02/16 0450 Other Results Laboratory Tests Test 10/01/16 10/02/16 20:16 04:50 Prothrombin Time 40.5 SEC 37.4 SEC (9.8-11.6) (9.8-11.6) Prothromb Time International 3.5 RATIO 3.2 RATIO Ratio Imaging Last 24 hours Impressions Hip MRI 10/02/16 0000 Signed Impressions: Service Date/Time: Sunday, October 02, 2016 09:13 - CONCLUSION: 12 cm collection in the right hip and buttock region, likely hematoma/seroma. The lesion could certainly be drained or sampled without difficulty under CT guidance. Adin Guillermo MD Procedures aspirationn hip yesterday revealed 1cc bloody fluid with neg gram and fungal stain Objective Remarks Patient looks comfortablw without obvious pain Right hip in indurated, no fluctuation or tenderness, or drainage Assessment & Plan Assessment and Plan MRI with contrast today shows multiple areas of fluid collection. Radiologist thinks hematoma , rather than abscess. 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 Microfungin not started for 3 weeks post last surgery where we used ' antibiotic ' loaded spacer not antifungal PLAN If it is agreeble to patient, since fluid loculations persist, I would go in and remove prostolac implants and do either hemiarthroplasty eith fungicide loaded cement spacer(biomet dave) or leave him with a 'girdle stone'. Waiting and watching will only prolong antifungal Rx, with uncertain results. Surgery ofcourse has varuious risks such as fracture, dislocation spacer, bacterial infection , wound healing problems etc All factors discussed with patient and Surgery most likely Friday, hopefully INR will come down. May have to gie FFP tomorrow Already discussed with ID Dr. Goran Lindo,Shaan GARCIA Oct 02, 2016 17:55
[2016-10-02 18:25] LABS: INTERNATIONAL NORMALIZED RATIO 2.2 RATIO; PROTHROMBIN TIME - PATIENT 24.9 SEC (9.8-11.6)
[2016-10-02 20:11] VITALS: BP_SYST 144; BP_SYST 170; BP_DIAS 80; BP_DIAS 81; PULSE 102; RESP 20; TEMP 98; O2SAT 95
[2016-10-02] MEDS: INSULIN DETEMIR 100 UNITS/ML VIAL SQ SCH (21:57)
[2016-10-02] MEDS: ATORVASTATIN 20 MG TAB PO SCH (21:58)
[2016-10-02] MEDS: MONTELUKAST SODIUM 10 MG TAB PO SCH (21:58)
[2016-10-02] MEDS: ACETAMINOPHEN/HYDROcodone 325 MG/7.5 MG TAB PO PRN (21:58)
[2016-10-03] VITALS (9 sets, daily range): BP systolic 139–161; BP diastolic 91–104; PULSE 86–106; RESP 18–20; TEMP 96–98.3; O2SAT 93–99
[2016-10-03] MEDS: HYDROmorphone HCL PF 1 MG/ML VIAL IV PUSH PRN ×2 (00:02→10:50)
[2016-10-03] MEDS: methylPREDNISolone SOD SUCC 125 MG/2 ML VIAL IV PUSH SCH ×2 (00:02→05:21)
[2016-10-03] MEDS: RESP: ALBUTEROL 2.5 MG/IPRATROPIUM 0.5 MG NEB (SCH) NEB ×5 (04:17→19:51)
[2016-10-03 05:55] LABS: INTERNATIONAL NORMALIZED RATIO 1.6 RATIO; PROTHROMBIN TIME - PATIENT 18.1 SEC (9.8-11.6)
[2016-10-03 05:56] LABS: AUTOMATED NEUTROPHIL # 8.3 TH/MM3 (1.8-7.7); BASOPHIL % 0.2 % (0.0-2.0); HEMATOCRIT 27.8 % (39.0-51.0); LYMPH % 7.3 % (9.0-44.0); LYMPHOCYTE # 0.7 TH/MM3 (1.0-4.8); MEAN CELL VOLUME 78.2 FL (80.0-100.0); MEAN CORPUSCULAR HEMOGLOBIN 25.1 PG (27.0-34.0); MEAN CORPUSCULAR HGB CONC 32.1 % (32.0-36.0); MONO % 5.9 % (0.0-8.0); NEUT % 86.6 % (16.0-70.0); PLATELET COUNT 347 TH/MM3 (150-450); RED BLOOD COUNT 3.56 MIL/MM3 (4.50-5.90); RED CELL DISTRIBUTION WIDTH 25.2 % (11.6-17.2); WHITE BLOOD COUNT 9.6 TH/MM3 (4.0-11.0)
[2016-10-03 05:58] LABS: HEMO FLAGS AUTO DIFF
[2016-10-03] MEDS: INSULIN ASPART SUPPLEMENTAL SCALE SQ SCH ×4 (06:05→20:37)
[2016-10-03 06:17] LABS: ALT (GPT) 70 U/L (12-78); ANION GAP 11 MEQ/L (5-15); AST (GOT) 25 U/L (15-37); BICARBONATE 28.1 MEQ/L (21.0-32.0); BLOOD UREA NITROGEN 19 MG/DL (7-18); CHLORIDE 97 MEQ/L (98-107); GLOMERULAR FILTRATION RATE 74 ML/MIN (>89); POTASSIUM 3.6 MEQ/L (3.5-5.1); SODIUM (NA) 136 MEQ/L (136-145)
[2016-10-03 06:18] LABS: ALKALINE PHOSPHATASE 108 U/L (45-117); TOTAL BILIRUBIN ADULT 0.5 MG/DL (0.2-1.0)
[2016-10-03 07:17] LABS: CORRECTED NUCLEATED RBC 5 /100 WBC (0-0); METAMYELOCYTES 1 % (0-1); MYELOCYTES 4 % (0-0); NEUTROPHIL # MANUAL DIFF 8.4 TH/MM3 (1.8-7.7); PLATELET ESTIMATE SMEAR NORMAL (NORMAL); PLATELET MORPHOLOGY NORMAL (NORMAL); POLYS (SEG NEUTROPHILS) 83 % (16-70); SCAN/DIFF FINAL DIFF MANUAL; WBC DIFF SAMPLE 100
[2016-10-03 07:19] LABS: KERATOCYTES OCC (NORMAL)
[2016-10-03] MEDS: SUCRALFATE 1 GM TAB PO SCH ×3 (08:16→17:22)
--- NOTE | 2016-10-03 08:18 | HHI.PR ---
Subjective History of Present Illness Patient have sever wheezing and pain Right hip ultrasound noted orthopedic input noted s/p needle drainage of hematoma right hip and getting right hip hardware removed from right hip soon...s/p MRI Right hip shows 12 cm hematoma/ seroma. need needle drainage. Holding coumadin .. high blood sugar on ISS + Levemir 15 units subcut. HS... D/W Patient Review of Systems Constitutional Constitutional: Fatigue, Weakness Pulmonary Respiratory: Shortness of Breath, Wheezing Musculoskeletal MS Remarks Right Hip pain/ swelling. Integumentary Skin Remarks right hip bruise. Vitals/Results Intake & Output 10/02/16 10/02/16 10/03/16 15:00 23:00 07:00 Output Total 300 ml 600 ml 900 ml Balance -300 ml -600 ml -900 ml Output Urine Total 300 ml 600 ml 900 ml Vital Signs Vital Signs Date Time Temp Pulse Resp B/P Pulse Ox O2 Delivery O2 Flow Rate FiO2 10/03/16 08:06 97.4 102 20 159/104 96 10/03/16 07:44 99 Nasal Cannula 2.00 10/03/16 04:14 97.4 102 20 155/92 96 10/03/16 00:28 14 10/03/16 00:05 97.6 96 20 147/91 95 10/02/16 22:58 14 10/02/16 20:11 98.0 102 20 144/80 95 10/02/16 15:05 98.0 104 18 144/81 95 10/02/16 11:53 90 19 140/80 95 CBC/BMP: 10/03/16 0530 10/03/16 0530 Lab Results Laboratory Tests Test 10/02/16 10/03/16 17:49 05:30 Prothrombin Time 24.9 SEC 18.1 SEC Prothromb Time International 2.2 RATIO 1.6 RATIO Ratio White Blood Count 9.6 TH/MM3 Red Blood Count 3.56 MIL/MM3 Hemoglobin 8.9 GM/DL Hematocrit 27.8 % Mean Corpuscular Volume 78.2 FL Mean Corpuscular Hemoglobin 25.1 PG Mean Corpuscular Hemoglobin 32.1 % Concent Red Cell Distribution Width 25.2 % Platelet Count 347 TH/MM3 Mean Platelet Volume 6.5 FL Neutrophils (%) (Auto) 86.6 % Lymphocytes (%) (Auto) 7.3 % Monocytes (%) (Auto) 5.9 % Eosinophils (%) (Auto) 0.0 % Basophils (%) (Auto) 0.2 % Neutrophils # (Auto) 8.3 TH/MM3 Lymphocytes # (Auto) 0.7 TH/MM3 Monocytes # (Auto) 0.6 TH/MM3 Eosinophils # (Auto) 0.0 TH/MM3 Basophils # (Auto) 0.0 TH/MM3 CBC Comment AUTO DIFF Differential Total Cells 100 Counted Neutrophils % (Manual) 83 % Lymphocytes % 11 % Monocytes % 1 % Neutrophils # (Manual) 8.4 TH/MM3 Metamyelocytes 1 % Myelocytes 4 % Nucleated Red Blood Cells 5 /100 WBC Differential Comment FINAL DIFF MANUAL Platelet Estimate NORMAL Platelet Morphology Comment NORMAL Basophilic Stippling MOD Keratocytes OCC Sodium Level 136 MEQ/L Potassium Level 3.6 MEQ/L Chloride Level 97 MEQ/L Carbon Dioxide Level 28.1 MEQ/L Anion Gap 11 MEQ/L Blood Urea Nitrogen 19 MG/DL Creatinine 1.05 MG/DL Estimat Glomerular Filtration 74 ML/MIN Rate Random Glucose 315 MG/DL Calcium Level 8.8 MG/DL Total Bilirubin 0.5 MG/DL Aspartate Amino Transf 25 U/L (AST/SGOT) Alanine Aminotransferase 70 U/L (ALT/SGPT) Alkaline Phosphatase 108 U/L Total Protein 5.9 GM/DL Albumin 3.4 GM/DL Physical Exam General General Appearance: No Acute Distress, Comfortable Eyes Eye Exam: Pupils Equal, Pupils Reactive, Sclera White, Extraocular Movement Intact Throat Throat Exam: Oral Mucosa [place] & Moist, Oral Pharynx Normal Neck Neck Exam: Neck Supple, Trachea Midline Pulmonary Resp Exam: Crackles, Diminished Breath Sounds Resp Remarks Sever Bilateral Wheezing. Cardiology CV Exam: Regular, Normal Sinus Rhythm Gastrointestinal/Abdomen GI Exam: Soft, Non-Tender, Bowel Sounds Present, Distended Musculoskeletal MS Exam: Normal Tone Integumentary Skin Exam: Warm, Dry Extremeties Extremities Exam: No Edema Neurologic Neuro Exam: Alert, Awake, Oriented, Speech Clear, Moving All Extremities, Meteorological Observer Equal, No Focal Deficits VTE Prophylaxis VTE Prophylaxis Meds: Coumadin PUD Prophylasis PUD Prophylaxis: Protonix Assessment/Plan Assessment/Plan ASSESSMENT AND PLAN: 1. This is a 51-year-old male who came to the emergency room diagnosed with shortness of breath and wheezing secondary to asthma exacerbation. The patient on solumedrol 60 milligrams IV q.6 h and also Xopenex and Atrovent nebulization and pulmonary input noted. The patient is on oxygen. Further recommendation per pulmonary. 2. History for right hip infection with fungus. The patient is on Diflucan. He has right hip swelling and pain. Right hip ultrasound noted CT Pelvis shows fluid collection orthopedic input noted s/p needle drainage of hematoma right hip and getting right hip hardware removed tomorrow....S/P MRI Right hip shows 12 cm hematoma/seroma. s/p needle drainage. 3. Septic right hip. The patient is on Diflucan + Micafungin... Infectious disease input noted.. Will monitor. 4. History of chronic obstructive pulmonary disease. Continue home medications. 5. History of depression. Continue home medications. 6. History of anxiety. Continue with Ativan 0.5 milligrams twice a day. 7. Right hip pain. The patient on tramadol and [place] and also Dilaudid 0.5 milligrams p.o. q. 6 hours PRN pain. 8. History of hyperlipidemia. Continue on Lipitor 20 milligrams p.o. daily. 9. DVT prophylaxis. The patient is off coumadin. INR is subtherapeutic. 10. GI prophylaxis. Protonix 40 milligrams p.o. daily. The patient is also on Carafate 1 gram p.o. three times a day. 11. History of pulmonary embolism and DVT right leg. The patient is off coumadin and INR is subtherapeutic. Will monitor INR daily. 12. High blood sugar continue with ISS + Levemir 15 units subcut. HS. monitoring blood glucose. Check CBC with diff CMP in AM. We are going to manage the patient on a daily basis and make recommendations on a daily basis. Discussed Condition with: Patient Myron Woodward MD Oct 03, 2016 08:18
--- NOTE | 2016-10-03 08:42 | PD.CARD.PN ---
Subjective Subjective Remarks alert in nad Objective Vital Signs / I&O Vital Signs Date Time Temp Pulse Resp B/P Pulse Ox O2 Delivery O2 Flow Rate FiO2 10/03/16 08:06 97.4 102 20 159/104 96 10/03/16 07:44 99 Nasal Cannula 2.00 10/03/16 04:14 97.4 102 20 155/92 96 10/03/16 00:28 14 10/03/16 00:05 97.6 96 20 147/91 95 10/02/16 22:58 14 10/02/16 20:11 98.0 102 20 144/80 95 10/02/16 15:05 98.0 104 18 144/81 95 10/02/16 11:53 90 19 140/80 95 I/O 10/02/16 10/02/16 10/02/16 10/03/16 10/03/16 10/03/16 07:00 15:00 23:00 07:00 15:00 23:00 Output Total 700 ml 300 ml 600 ml 900 ml Balance -700 ml -300 ml -600 ml -900 ml Output Urine Total 700 ml 300 ml 600 ml 900 ml Physical Exam GENERAL: SKIN: Warm and dry. HEAD: Normocephalic. EYES: No scleral icterus. No injection or drainage. NECK: Supple, trachea midline. No JVD or lymphadenopathy. CARDIOVASCULAR: Regular rate and rhythm without murmurs, gallops, or rubs. RESPIRATORY: Breath sounds equal bilaterally. No accessory muscle use. GASTROINTESTINAL: Abdomen soft, non-tender, nondistended. MUSCULOSKELETAL: No cyanosis, or edema. BACK: Nontender without obvious deformity. No CVA tenderness. Laboratory Laboratory Tests Test 10/02/16 10/03/16 17:49 05:30 Prothrombin Time 24.9 SEC 18.1 SEC Prothromb Time International 2.2 RATIO 1.6 RATIO Ratio White Blood Count 9.6 TH/MM3 Red Blood Count 3.56 MIL/MM3 Hemoglobin 8.9 GM/DL Hematocrit 27.8 % Mean Corpuscular Volume 78.2 FL Mean Corpuscular Hemoglobin 25.1 PG Mean Corpuscular Hemoglobin 32.1 % Concent Red Cell Distribution Width 25.2 % Platelet Count 347 TH/MM3 Mean Platelet Volume 6.5 FL Neutrophils (%) (Auto) 86.6 % Lymphocytes (%) (Auto) 7.3 % Monocytes (%) (Auto) 5.9 % Eosinophils (%) (Auto) 0.0 % Basophils (%) (Auto) 0.2 % Neutrophils # (Auto) 8.3 TH/MM3 Lymphocytes # (Auto) 0.7 TH/MM3 Monocytes # (Auto) 0.6 TH/MM3 Eosinophils # (Auto) 0.0 TH/MM3 Basophils # (Auto) 0.0 TH/MM3 CBC Comment AUTO DIFF Differential Total Cells 100 Counted Neutrophils % (Manual) 83 % Lymphocytes % 11 % Monocytes % 1 % Neutrophils # (Manual) 8.4 TH/MM3 Metamyelocytes 1 % Myelocytes 4 % Nucleated Red Blood Cells 5 /100 WBC Differential Comment FINAL DIFF MANUAL Platelet Estimate NORMAL Platelet Morphology Comment NORMAL Basophilic Stippling MOD Keratocytes OCC Sodium Level 136 MEQ/L Potassium Level 3.6 MEQ/L Chloride Level 97 MEQ/L Carbon Dioxide Level 28.1 MEQ/L Anion Gap 11 MEQ/L Blood Urea Nitrogen 19 MG/DL Creatinine 1.05 MG/DL Estimat Glomerular Filtration 74 ML/MIN Rate Random Glucose 315 MG/DL Calcium Level 8.8 MG/DL Total Bilirubin 0.5 MG/DL Aspartate Amino Transf 25 U/L (AST/SGOT) Alanine Aminotransferase 70 U/L (ALT/SGPT) Alkaline Phosphatase 108 U/L Total Protein 5.9 GM/DL Albumin 3.4 GM/DL Assessment and Plan Problem List: (1) Pulmonary embolism (2) Chronic obstructive pulmonary disease (3) Acute asthma exacerbation Assessment and Plan 1.) asthma - no evidence of chf or ischemic etiology, i am leaving for vacation today, my coverage is listed with my service number and/or office receptionist, Dacia Mishra at [phone] Problem Qualifiers (1) Chronic obstructive pulmonary disease: Qualified Code: J44.1 - Chronic obstructive pulmonary disease with acute exacerbation (2) Acute asthma exacerbation: Qualified Code: J45.51 - Severe persistent asthma with acute exacerbation Jluis Morris MD Oct 03, 2016 08:42
[2016-10-03] MEDS: LORazepam 0.5 MG TAB PO SCH ×2 (09:39→20:36)
[2016-10-03] MEDS: POTASSIUM CHLORIDE 10 MEQ CONTROLLED RELEASE TAB PO SCH ×2 (09:39→20:36)
[2016-10-03] MEDS: PANTOPRAZOLE SOD 40 MG DELAYED RELEASE TAB PO SCH (09:39)
[2016-10-03] MEDS: FLUCONAZOLE 200 MG TAB PO SCH (09:41)
[2016-10-03] MEDS: DILTIAZEM-CD 180 MG CAP ER PO SCH (09:41)
[2016-10-03] MEDS: BUDESONIDE-FORMOTEROL 160/4.5 MCG INHALER INH SCH ×2 (09:48→20:36)
[2016-10-03] MEDS: methylPREDNISolone SOD SUCC 40 MG/1 ML VIAL IV PUSH SCH ×2 (12:55→17:22)
--- NOTE | 2016-10-03 13:10 | HHI.IDPN ---
Subjective Subjective Remarks Notes reviewed Temps ok Still SOB Still with severe pain R hip Has had multiple imaging of his R hip Aspiration of fluid collection - blood, C/S negative so far, no fungal elements seen ESR 19-24 CRP only 0.33 Antibiotics Micafungin Diflucan Lines PICC RUE Past Medical History DVT right lower extremity Pulmonary embolism Asthma Hyperlipidemia Past Surgical History Previous hip surgery Recent right surgery, has Abx spacer, August 09, 2016 Allergies: Coded Allergies: Tetracycline (Verified Allergy, Severe, throat swells, 09/29/16) Demerol (Verified Allergy, Intermediate, hallucinations, 09/29/16) Objective . Vital Signs Date Time Temp Pulse Resp B/P Pulse Ox O2 Delivery O2 Flow Rate FiO2 10/03/16 11:17 97.7 86 20 158/98 94 10/03/16 08:06 97.4 102 20 159/104 96 10/03/16 07:44 99 Nasal Cannula 2.00 10/03/16 04:14 97.4 102 20 155/92 96 10/03/16 00:28 14 10/03/16 00:05 97.6 96 20 147/91 95 10/02/16 22:58 14 10/02/16 20:11 98.0 102 20 144/80 95 10/02/16 15:05 98.0 104 18 144/81 95 10/02/16 10/02/16 10/03/16 15:00 23:00 07:00 Output Total 300 ml 600 ml 900 ml Balance -300 ml -600 ml -900 ml Output Urine Total 300 ml 600 ml 900 ml . Laboratory Tests Test 10/02/16 10/03/16 04:50 05:30 White Blood Count 9.6 TH/MM3 9.6 TH/MM3 Red Blood Count 3.34 MIL/MM3 3.56 MIL/MM3 Hemoglobin 8.4 GM/DL 8.9 GM/DL Hematocrit 26.1 % 27.8 % Mean Corpuscular Volume 78.2 FL 78.2 FL Mean Corpuscular Hemoglobin 25.0 PG 25.1 PG Mean Corpuscular Hemoglobin 32.0 % 32.1 % Concent Red Cell Distribution Width 25.5 % 25.2 % Platelet Count 333 TH/MM3 347 TH/MM3 Mean Platelet Volume 6.2 FL 6.5 FL Neutrophils (%) (Auto) 88.1 % 86.6 % Lymphocytes (%) (Auto) 7.1 % 7.3 % Monocytes (%) (Auto) 4.7 % 5.9 % Eosinophils (%) (Auto) 0.0 % 0.0 % Basophils (%) (Auto) 0.1 % 0.2 % Neutrophils # (Auto) 8.4 TH/MM3 8.3 TH/MM3 Lymphocytes # (Auto) 0.7 TH/MM3 0.7 TH/MM3 Monocytes # (Auto) 0.4 TH/MM3 0.6 TH/MM3 Eosinophils # (Auto) 0.0 TH/MM3 0.0 TH/MM3 Basophils # (Auto) 0.0 TH/MM3 0.0 TH/MM3 CBC Comment AUTO DIFF AUTO DIFF Differential Total Cells 100 100 Counted Neutrophils % (Manual) 86 % 83 % Band Neutrophils % 1 % Lymphocytes % 8 % 11 % Monocytes % 3 % 1 % Neutrophils # (Manual) 8.5 TH/MM3 8.4 TH/MM3 Metamyelocytes 1 % 1 % Myelocytes 1 % 4 % Differential Comment FINAL DIFF FINAL DIFF MANUAL MANUAL Platelet Estimate NORMAL NORMAL Platelet Morphology Comment NORMAL NORMAL Basophilic Stippling FAINT MOD Erythrocyte Sedimentation Rate 19 mm/hr Nucleated Red Blood Cells 5 /100 WBC Keratocytes OCC Laboratory Tests Test 10/02/16 10/03/16 04:50 05:30 Sodium Level 138 MEQ/L 136 MEQ/L Potassium Level 4.0 MEQ/L 3.6 MEQ/L Chloride Level 98 MEQ/L 97 MEQ/L Carbon Dioxide Level 28.6 MEQ/L 28.1 MEQ/L Anion Gap 11 MEQ/L 11 MEQ/L Blood Urea Nitrogen 19 MG/DL 19 MG/DL Creatinine 0.82 MG/DL 1.05 MG/DL Estimat Glomerular Filtration 99 ML/MIN 74 ML/MIN Rate Random Glucose 263 MG/DL 315 MG/DL Calcium Level 8.8 MG/DL 8.8 MG/DL Total Bilirubin 0.4 MG/DL 0.5 MG/DL Aspartate Amino Transf 20 U/L 25 U/L (AST/SGOT) Alanine Aminotransferase 65 U/L 70 U/L (ALT/SGPT) Alkaline Phosphatase 108 U/L 108 U/L C-Reactive Protein 0.33 MG/DL Total Protein 5.7 GM/DL 5.9 GM/DL Albumin 3.2 GM/DL 3.4 GM/DL Microbiology Date/Time Procedure Status Source Growth 10/01/16 14:10 Gram Stain - Final Resulted Fluid Other 10/01/16 14:10 Body Fluid Culture - Preliminary Resulted Fluid Other NO GROWTH IN 48 HOURS. 10/01/16 14:10 Fungal Smear - Final Resulted Fluid Other NO FUNGAL ELEMENTS SEEN. 10/01/16 14:10 Fungal Culture Resulted Fluid Other Pending Imaging Hip MRI 10/02/16 0000 Signed Impressions: Service Date/Time: Sunday, October 02, 2016 09:13 - CONCLUSION: 12 cm collection in the right hip and buttock region, likely hematoma/seroma. The lesion could certainly be drained or sampled without difficulty under CT guidance. Adin Guillermo MD Hip Aspiration/Injection 10/01/16 0000 Signed Impressions: Service Date/Time: Saturday, October 01, 2016 13:44 - CONCLUSION: Uncomplicated aspiration as above. Félix Oneil MD Physical Exam GENERAL: awake and alert, not in any respiratory distress SKIN: Cool and dry. No generalized rash or ecchymosis. HEENT: [place] conjunctivae. No scleral icterus. No injection or drainage. Moist oral mucosa. NECK: Trachea midline. No JVD or lymphadenopathy. Supple, nontender, no meningeal signs. CARDIOVASCULAR: Regular rate and rhythm without murmurs, gallops, or rubs. RESPIRATORY: Breath sounds equal bilaterally. Has scattered wheezing bilaterally. GASTROINTESTINAL: Abdomen globular, slightly distended, non-tender. Bowel sounds are present and normoactive. No guarding no rebound. No organomegaly. MUSCULOSKELETAL: Extremities without clubbing, cyanosis, or edema. Has a well- healed incision on the right lateral thigh. Area of ecchymosis has decreased, and the skin remains indurated. Has some pink color around that inision. No calf tenderness. Has decreased range of motion in the right hip joint NEUROLOGICAL: grossly non-focal PSYCH: Normal affect, calm and cooperative LINE: PICC RUE with no evidence of infection Assessment & Plan Remarks IMPRESSION Worsening R hip pain, patient with known complex fluid collection R hip, sterile on aspiration, felt to be a hematoma - has had repeat aspiration and C/S negative Ghada R hip infection, S/P R hip surgery has Abx spacer 12 Known asthma, with exacerbation - CXR clear - has been on Abx for PNA Hx DVT RLE and PE RECOMMENDATION Continue Diflucan Continue Micafungin Ortho to do surgery - plan on removing prosthesis Monitor progress Will follow Aria Hassan MD Oct 03, 2016 13:10
--- NOTE | 2016-10-03 14:46 | PD.ORT.PN ---
Subjective Post Op Day #: 55 Pain Scale: 7 Subjective Remarks no change Range of Motion flexion 80, [id number], good rotation with just some grimacing Distance Walked walking hallway with no difficulty PWB, with walker Objective Vitals Vital Signs Date Time Temp Pulse Resp B/P Pulse Ox O2 Delivery O2 Flow Rate FiO2 10/03/16 11:17 97.7 86 20 158/98 94 10/03/16 08:06 97.4 102 20 159/104 96 10/03/16 07:44 99 Nasal Cannula 2.00 10/03/16 04:14 97.4 102 20 155/92 96 10/03/16 00:28 14 10/03/16 00:05 97.6 96 20 147/91 95 10/02/16 22:58 14 10/02/16 20:11 98.0 102 20 144/80 95 10/02/16 15:05 98.0 104 18 144/81 95 I/O 10/02/16 10/02/16 10/02/16 10/03/16 10/03/16 10/03/16 07:00 15:00 23:00 07:00 15:00 23:00 Output Total 700 ml 300 ml 600 ml 900 ml Balance -700 ml -300 ml -600 ml -900 ml Output Urine Total 700 ml 300 ml 600 ml 900 ml Result Diagram: 10/03/16 0530 10/03/16 0530 Other Results Laboratory Tests Test 10/02/16 10/03/16 17:49 05:30 Prothrombin Time 24.9 SEC 18.1 SEC (9.8-11.6) (9.8-11.6) Prothromb Time International 2.2 RATIO 1.6 RATIO Ratio Imaging Last 24 hours Impressions Hip MRI 10/02/16 0000 Signed Impressions: Service Date/Time: Sunday, October 02, 2016 09:13 - CONCLUSION: 12 cm collection in the right hip and buttock region, likely hematoma/seroma. The lesion could certainly be drained or sampled without difficulty under CT guidance. Adin Guillermo MD Procedures Aspirate right hip neg 48 hrs C &S Fungal culture pending Objective Remarks Patient looks comfortablw without obvious pain Right hip in indurated, no fluctuation or tenderness, or drainage He can get OOB and walk withou difficulty Assessment & Plan Assessment and Plan Clinically, objectively , patient is doing as well can be expected Subjectively complaints of pain, pain level of '7' not commensurate with clinical observation Labs do not show indication of active infection. I had a long discussion with ANA Lindsay. My decision after our long discussion is that it is better to hold off any surgery at this point, provide better pain control as out patient . He told Dr. Hewitt that it is the hip pain that gives him breathing problems, prompting readmissions. It should be noted he was in and out of hospital x 3 even before hip problem Discussed with Dr. Woodward about anticoagulation. He is concerned about ' under anti coagulation' PLAN DC dilaudud Start oxycontin DC home on oxycontin in next day or so. Hold off surgery due to above mentioned reasons as well as the fact that he is ' very' high risk for surgery/anesthesia. Shaan Lindo MD Oct 03, 2016 14:46
[2016-10-03] MEDS: oxyCODONE HCL 20 MG CONTROLLED RELEASE TAB PO SCH (17:22)
[2016-10-03] MEDS: WARFARIN SOD 2 MG TAB PO SCH (17:22)
[2016-10-03] MEDS: MICAFUNGIN INJ 150 MG in SODIUM CHLORIDE 0.9% INJ 100 ML IV SCH (17:23)
[2016-10-03 19:40] LABS: INTERNATIONAL NORMALIZED RATIO 1.2 RATIO; PROTHROMBIN TIME - PATIENT 13.7 SEC (9.8-11.6)
[2016-10-03] MEDS: traMADol HCL 50 MG TAB PO PRN (20:36)
[2016-10-03] MEDS: MONTELUKAST SODIUM 10 MG TAB PO SCH (20:36)
[2016-10-03] MEDS: ATORVASTATIN 20 MG TAB PO SCH (20:36)
[2016-10-03] MEDS: predniSONE 20 MG TAB PO SCH (20:36)
[2016-10-03] MEDS: INSULIN DETEMIR 100 UNITS/ML VIAL SQ SCH (20:37)
[2016-10-04 00:30] VITALS: BP 142/89; PULSE 93; RESP 19; TEMP 96.5; O2SAT 97
[2016-10-04] MEDS: RESP: ALBUTEROL 2.5 MG/IPRATROPIUM 0.5 MG NEB (SCH) NEB ×6 (02:25→19:48)
[2016-10-04 04:27] VITALS: BP 155/91; PULSE 103; RESP 17; TEMP 95.9; O2SAT 99
[2016-10-04 06:09] LABS: AUTOMATED NEUTROPHIL # 7.5 TH/MM3 (1.8-7.7); BASOPHIL % 0.2 % (0.0-2.0); HEMATOCRIT 26.6 % (39.0-51.0); LYMPH % 8.9 % (9.0-44.0); LYMPHOCYTE # 0.8 TH/MM3 (1.0-4.8); MEAN CELL VOLUME 77.4 FL (80.0-100.0); MEAN CORPUSCULAR HEMOGLOBIN 25.4 PG (27.0-34.0); MEAN CORPUSCULAR HGB CONC 32.9 % (32.0-36.0); MONO % 5.9 % (0.0-8.0); PLATELET COUNT 292 TH/MM3 (150-450); RED BLOOD COUNT 3.44 MIL/MM3 (4.50-5.90); RED CELL DISTRIBUTION WIDTH 24.7 % (11.6-17.2); WHITE BLOOD COUNT 8.8 TH/MM3 (4.0-11.0)
[2016-10-04 06:12] LABS: HEMO FLAGS AUTO DIFF
[2016-10-04] MEDS: oxyCODONE HCL 20 MG CONTROLLED RELEASE TAB PO SCH ×2 (06:17→15:59)
[2016-10-04] MEDS: INSULIN ASPART SUPPLEMENTAL SCALE SQ SCH ×4 (06:17→21:16)
[2016-10-04 06:25] LABS: INTERNATIONAL NORMALIZED RATIO 1.1 RATIO; PROTHROMBIN TIME - PATIENT 12.7 SEC (9.8-11.6)
[2016-10-04 06:33] LABS: ALKALINE PHOSPHATASE 103 U/L (45-117); ALT (GPT) 67 U/L (12-78); ANION GAP 8 MEQ/L (5-15); AST (GOT) 22 U/L (15-37); BICARBONATE 30.5 MEQ/L (21.0-32.0); BLOOD UREA NITROGEN 18 MG/DL (7-18); CHLORIDE 96 MEQ/L (98-107); GLOMERULAR FILTRATION RATE 85 ML/MIN (>89); POTASSIUM 3.9 MEQ/L (3.5-5.1); SODIUM (NA) 134 MEQ/L (136-145); TOTAL BILIRUBIN ADULT 0.4 MG/DL (0.2-1.0)
[2016-10-04 07:09] LABS: BANDS 1 % (0-6); CORRECTED NUCLEATED RBC 5 /100 WBC (0-0); METAMYELOCYTES 2 % (0-1); MYELOCYTES 4 % (0-0); NEUTROPHIL # MANUAL DIFF 7.7 TH/MM3 (1.8-7.7); PLATELET ESTIMATE SMEAR NORMAL (NORMAL); PLATELET MORPHOLOGY NORMAL (NORMAL); POLYS (SEG NEUTROPHILS) 81 % (16-70); SCAN/DIFF FINAL DIFF MANUAL; WBC DIFF SAMPLE 100
[2016-10-04 08:00] VITALS: BP_SYST 156; BP_SYST 157; BP_DIAS 95; PULSE 88; PULSE 90; RESP 16; TEMP 96.4; TEMP 96.9; O2SAT 96; O2SAT 97
--- NOTE | 2016-10-04 08:05 | HHI.PR ---
Subjective History of Present Illness Patient have sever wheezing and pain Right hip ultrasound noted orthopedic input noted s/p needle drainage of hematoma right hip and d/w orthopedic not getting right hip hardware removed ..will keep and watch per orthopedic.. ...s/ p MRI Right hip shows 12 cm hematoma/seroma. s/p needle drainage. Holding coumadin .. high blood sugar on ISS + Levemir 15 units subcut. HS... D/W Patient and RN Malissa Review of Systems Constitutional Constitutional: Fatigue, Weakness Pulmonary Respiratory: Shortness of Breath, Wheezing Musculoskeletal MS Remarks Right Hip pain/ swelling. Integumentary Skin Remarks right hip bruise. Vitals/Results Intake & Output 10/03/16 10/03/16 10/04/16 15:00 23:00 07:00 Intake Total 240 ml 240 ml Output Total 650 ml Balance 240 ml -410 ml Intake Oral 240 ml 240 ml Output Urine Total 650 ml # Voids 2 # Bowel Movements 1 0 Vital Signs Vital Signs Date Time Temp Pulse Resp B/P Pulse Ox O2 Delivery O2 Flow Rate FiO2 10/04/16 04:27 95.9 103 17 155/91 99 10/04/16 00:30 96.5 93 19 142/89 97 10/03/16 20:30 96.0 106 19 151/97 93 10/03/16 19:55 98 10/03/16 18:16 96.7 106 18 161/97 97 10/03/16 15:23 98.3 99 18 139/96 97 10/03/16 11:17 97.7 86 20 158/98 94 10/03/16 08:06 97.4 102 20 159/104 96 CBC/BMP: 10/04/16 0550 10/04/16 0550 Lab Results Laboratory Tests Test 10/03/16 10/04/16 19:20 05:50 Prothrombin Time 13.7 SEC 12.7 SEC Prothromb Time International 1.2 RATIO 1.1 RATIO Ratio White Blood Count 8.8 TH/MM3 Red Blood Count 3.44 MIL/MM3 Hemoglobin 8.7 GM/DL Hematocrit 26.6 % Mean Corpuscular Volume 77.4 FL Mean Corpuscular Hemoglobin 25.4 PG Mean Corpuscular Hemoglobin 32.9 % Concent Red Cell Distribution Width 24.7 % Platelet Count 292 TH/MM3 Mean Platelet Volume 6.7 FL Neutrophils (%) (Auto) 85.0 % Lymphocytes (%) (Auto) 8.9 % Monocytes (%) (Auto) 5.9 % Eosinophils (%) (Auto) 0.0 % Basophils (%) (Auto) 0.2 % Neutrophils # (Auto) 7.5 TH/MM3 Lymphocytes # (Auto) 0.8 TH/MM3 Monocytes # (Auto) 0.5 TH/MM3 Eosinophils # (Auto) 0.0 TH/MM3 Basophils # (Auto) 0.0 TH/MM3 CBC Comment AUTO DIFF Differential Total Cells 100 Counted Neutrophils % (Manual) 81 % Band Neutrophils % 1 % Lymphocytes % 6 % Monocytes % 6 % Neutrophils # (Manual) 7.7 TH/MM3 Metamyelocytes 2 % Myelocytes 4 % Nucleated Red Blood Cells 5 /100 WBC Differential Comment FINAL DIFF MANUAL Platelet Estimate NORMAL Platelet Morphology Comment NORMAL Basophilic Stippling FAINT Sodium Level 134 MEQ/L Potassium Level 3.9 MEQ/L Chloride Level 96 MEQ/L Carbon Dioxide Level 30.5 MEQ/L Anion Gap 8 MEQ/L Blood Urea Nitrogen 18 MG/DL Creatinine 0.93 MG/DL Estimat Glomerular Filtration 85 ML/MIN Rate Random Glucose 233 MG/DL Calcium Level 8.7 MG/DL Total Bilirubin 0.4 MG/DL Aspartate Amino Transf 22 U/L (AST/SGOT) Alanine Aminotransferase 67 U/L (ALT/SGPT) Alkaline Phosphatase 103 U/L Total Protein 5.6 GM/DL Albumin 3.1 GM/DL Physical Exam General General Appearance: No Acute Distress, Comfortable Eyes Eye Exam: Pupils Equal, Pupils Reactive, Sclera White, Extraocular Movement Intact Throat Throat Exam: Oral Mucosa [place] & Moist, Oral Pharynx Normal Neck Neck Exam: Neck Supple, Trachea Midline Pulmonary Resp Exam: Crackles, Diminished Breath Sounds Resp Remarks Sever Bilateral Wheezing. Cardiology CV Exam: Regular, Normal Sinus Rhythm Gastrointestinal/Abdomen GI Exam: Soft, Non-Tender, Bowel Sounds Present, Distended Musculoskeletal MS Exam: Normal Tone Integumentary Skin Exam: Warm, Dry Extremeties Extremities Exam: No Edema Neurologic Neuro Exam: Alert, Awake, Oriented, Speech Clear, Moving All Extremities, Parking Station Attendant Equal, No Focal Deficits VTE Prophylaxis VTE Prophylaxis Meds: Coumadin PUD Prophylasis PUD Prophylaxis: Protonix Assessment/Plan Assessment/Plan ASSESSMENT AND PLAN: 1. This is a 51-year-old male who came to the emergency room diagnosed with shortness of breath and wheezing secondary to asthma exacerbation. The patient on solumedrol 60 milligrams IV q.6 h and also Xopenex and Atrovent nebulization and pulmonary input noted. The patient is on oxygen. Further recommendation per pulmonary. 2. History for right hip infection with fungus. The patient is on Diflucan. He has right hip swelling and pain. Right hip ultrasound noted orthopedic input noted s/p needle drainage of hematoma right hip and d/w orthopedic not getting right hip hardware removed ..will keep and watch per orthopedic. S/P MRI Right hip shows 12 cm hematoma/seroma. s/p needle drainage. 3. Septic right hip. The patient is on Diflucan + Micafungin... Infectious disease input noted.. Will monitor. 4. History of chronic obstructive pulmonary disease. Continue home medications. 5. History of depression. Continue home medications. 6. History of anxiety. Continue with Ativan 0.5 milligrams twice a day. 7. Right hip pain. The patient on tramadol and [place] and also Dilaudid 0.5 milligrams p.o. q. 6 hours PRN pain. 8. History of hyperlipidemia. Continue on Lipitor 20 milligrams p.o. daily. 9. DVT prophylaxis. The patient is off coumadin. INR is subtherapeutic. 10. GI prophylaxis. Protonix 40 milligrams p.o. daily. The patient is also on Carafate 1 gram p.o. three times a day. 11. History of pulmonary embolism and DVT right leg. The patient is off coumadin and INR is subtherapeutic. Will monitor INR daily. 12. High blood sugar continue with ISS + Levemir 15 units subcut. HS. monitoring blood glucose. Check CBC with diff CMP in AM. We are going to manage the patient on a daily basis and make recommendations on a daily basis. Discussed Condition with: Patient Myron Woodward MD Oct 04, 2016 08:05
--- NOTE | 2016-10-04 09:37 | PD.ORT.PN ---
Subjective Post Op Day #: 56 Subjective Remarks no change Range of Motion no change Distance Walked not up to BR yet. Wants to shower, ok Objective Vitals Vital Signs Date Time Temp Pulse Resp B/P Pulse Ox O2 Delivery O2 Flow Rate FiO2 10/04/16 04:27 95.9 103 17 155/91 99 10/04/16 00:30 96.5 93 19 142/89 97 10/03/16 20:30 96.0 106 19 151/97 93 10/03/16 19:55 98 10/03/16 18:16 96.7 106 18 161/97 97 10/03/16 15:23 98.3 99 18 139/96 97 10/03/16 11:17 97.7 86 20 158/98 94 I/O 10/03/16 10/03/16 10/03/16 10/04/16 10/04/16 10/04/16 07:00 15:00 23:00 07:00 15:00 23:00 Intake Total 240 ml 240 ml Output Total 900 ml 650 ml Balance -900 ml 240 ml -410 ml Intake Oral 240 ml 240 ml Output Urine Total 900 ml 650 ml # Voids 2 # Bowel Movements 1 0 Result Diagram: 10/04/16 0550 10/04/16 0550 Other Results Laboratory Tests Test 10/03/16 10/04/16 19:20 05:50 Prothrombin Time 13.7 SEC 12.7 SEC (9.8-11.6) (9.8-11.6) Prothromb Time International 1.2 RATIO 1.1 RATIO Ratio Imaging Last 24 hours Impressions Hip MRI 10/02/16 0000 Signed Impressions: Service Date/Time: Sunday, October 02, 2016 09:13 - CONCLUSION: 12 cm collection in the right hip and buttock region, likely hematoma/seroma. The lesion could certainly be drained or sampled without difficulty under CT guidance. Adin Guillermo MD Objective Remarks No change Assessment & Plan Assessment and Plan Orthopedically ready to be DCed He says Dr Hernandez wants him here till friday Rx written for Oxycontin and tramadol I will see him again friday prn. Shaan Lindo MD Oct 04, 2016 09:37
[2016-10-04] MEDS ORDERED: OXYC20TA17 PO (09:39)
[2016-10-04] MEDS ORDERED: ULTR50TA5 PO (09:39)
[2016-10-04] MEDS: FLUCONAZOLE 200 MG TAB PO SCH (09:42)
[2016-10-04] MEDS: DILTIAZEM-CD 180 MG CAP ER PO SCH (09:43)
[2016-10-04] MEDS: traMADol HCL 50 MG TAB PO PRN ×2 (09:43→17:38)
[2016-10-04] MEDS: predniSONE 20 MG TAB PO SCH ×2 (09:43→21:16)
[2016-10-04] MEDS: SUCRALFATE 1 GM TAB PO SCH ×3 (09:43→15:59)
[2016-10-04] MEDS: POTASSIUM CHLORIDE 10 MEQ CONTROLLED RELEASE TAB PO SCH ×2 (09:43→21:16)
[2016-10-04] MEDS: LORazepam 0.5 MG TAB PO SCH ×2 (09:43→21:16)
[2016-10-04] MEDS: PANTOPRAZOLE SOD 40 MG DELAYED RELEASE TAB PO SCH (09:43)
[2016-10-04] MEDS: BUDESONIDE-FORMOTEROL 160/4.5 MCG INHALER INH SCH ×2 (09:44→21:15)
[2016-10-04] MEDS: SODIUM CHLORIDE 0.9% FLUSH 5 ML FLUSH IVF PRN (09:44)
--- NOTE | 2016-10-04 09:53 | HHI.IDPN ---
Subjective Subjective Remarks Notes reviewed Temps ok R hip pain same Long discussion with Dr Lindo yesterday Has had multiple imaging of his R hip Aspiration of fluid collection - blood, C/S negative, no fungal elements seen ESR 19-24 CRP only 0.33 Antibiotics Micafungin Diflucan Lines PICC RUE Past Medical History DVT right lower extremity Pulmonary embolism Asthma Hyperlipidemia Past Surgical History Previous hip surgery Recent right surgery, has Abx spacer, August 09, 2016 Allergies: Coded Allergies: Tetracycline (Verified Allergy, Severe, throat swells, 09/29/16) Demerol (Verified Allergy, Intermediate, hallucinations, 09/29/16) Objective . Vital Signs Date Time Temp Pulse Resp B/P Pulse Ox O2 Delivery O2 Flow Rate FiO2 10/04/16 04:27 95.9 103 17 155/91 99 10/04/16 00:30 96.5 93 19 142/89 97 10/03/16 20:30 96.0 106 19 151/97 93 10/03/16 19:55 98 10/03/16 18:16 96.7 106 18 161/97 97 10/03/16 15:23 98.3 99 18 139/96 97 10/03/16 11:17 97.7 86 20 158/98 94 10/03/16 10/03/16 10/04/16 15:00 23:00 07:00 Intake Total 240 ml 240 ml Output Total 650 ml Balance 240 ml -410 ml Intake Oral 240 ml 240 ml Output Urine Total 650 ml # Voids 2 # Bowel Movements 1 0 . Laboratory Tests Test 10/03/16 10/04/16 05:30 05:50 White Blood Count 9.6 TH/MM3 8.8 TH/MM3 Red Blood Count 3.56 MIL/MM3 3.44 MIL/MM3 Hemoglobin 8.9 GM/DL 8.7 GM/DL Hematocrit 27.8 % 26.6 % Mean Corpuscular Volume 78.2 FL 77.4 FL Mean Corpuscular Hemoglobin 25.1 PG 25.4 PG Mean Corpuscular Hemoglobin 32.1 % 32.9 % Concent Red Cell Distribution Width 25.2 % 24.7 % Platelet Count 347 TH/MM3 292 TH/MM3 Mean Platelet Volume 6.5 FL 6.7 FL Neutrophils (%) (Auto) 86.6 % 85.0 % Lymphocytes (%) (Auto) 7.3 % 8.9 % Monocytes (%) (Auto) 5.9 % 5.9 % Eosinophils (%) (Auto) 0.0 % 0.0 % Basophils (%) (Auto) 0.2 % 0.2 % Neutrophils # (Auto) 8.3 TH/MM3 7.5 TH/MM3 Lymphocytes # (Auto) 0.7 TH/MM3 0.8 TH/MM3 Monocytes # (Auto) 0.6 TH/MM3 0.5 TH/MM3 Eosinophils # (Auto) 0.0 TH/MM3 0.0 TH/MM3 Basophils # (Auto) 0.0 TH/MM3 0.0 TH/MM3 CBC Comment AUTO DIFF AUTO DIFF Differential Total Cells 100 100 Counted Neutrophils % (Manual) 83 % 81 % Lymphocytes % 11 % 6 % Monocytes % 1 % 6 % Neutrophils # (Manual) 8.4 TH/MM3 7.7 TH/MM3 Metamyelocytes 1 % 2 % Myelocytes 4 % 4 % Nucleated Red Blood Cells 5 /100 WBC 5 /100 WBC Differential Comment FINAL DIFF FINAL DIFF MANUAL MANUAL Platelet Estimate NORMAL NORMAL Platelet Morphology Comment NORMAL NORMAL Basophilic Stippling MOD FAINT Keratocytes OCC Band Neutrophils % 1 % Laboratory Tests Test 10/03/16 10/04/16 05:30 05:50 Sodium Level 136 MEQ/L 134 MEQ/L Potassium Level 3.6 MEQ/L 3.9 MEQ/L Chloride Level 97 MEQ/L 96 MEQ/L Carbon Dioxide Level 28.1 MEQ/L 30.5 MEQ/L Anion Gap 11 MEQ/L 8 MEQ/L Blood Urea Nitrogen 19 MG/DL 18 MG/DL Creatinine 1.05 MG/DL 0.93 MG/DL Estimat Glomerular Filtration 74 ML/MIN 85 ML/MIN Rate Random Glucose 315 MG/DL 233 MG/DL Calcium Level 8.8 MG/DL 8.7 MG/DL Total Bilirubin 0.5 MG/DL 0.4 MG/DL Aspartate Amino Transf 25 U/L 22 U/L (AST/SGOT) Alanine Aminotransferase 70 U/L 67 U/L (ALT/SGPT) Alkaline Phosphatase 108 U/L 103 U/L Total Protein 5.9 GM/DL 5.6 GM/DL Albumin 3.4 GM/DL 3.1 GM/DL Microbiology Date/Time Procedure Status Source Growth 10/01/16 14:10 Gram Stain - Final Complete Fluid Other 10/01/16 14:10 Body Fluid Culture - Final Complete Fluid Other NO GROWTH IN 72 HRS.--AEROBICALLY OR ... 10/01/16 14:10 Fungal Smear - Final Resulted Fluid Other NO FUNGAL ELEMENTS SEEN. 10/01/16 14:10 Fungal Culture Resulted Fluid Other Pending Imaging Hip MRI 10/02/16 0000 Signed Impressions: Service Date/Time: Sunday, October 02, 2016 09:13 - CONCLUSION: 12 cm collection in the right hip and buttock region, likely hematoma/seroma. The lesion could certainly be drained or sampled without difficulty under CT guidance. Adin Guillermo MD Hip Aspiration/Injection 10/01/16 0000 Signed Impressions: Service Date/Time: Saturday, October 01, 2016 13:44 - CONCLUSION: Uncomplicated aspiration as above. Félix Oneil MD Physical Exam GENERAL: awake and alert, not in any respiratory distress SKIN: Cool and dry. No generalized rash or ecchymosis. HEENT: [place] conjunctivae. No scleral icterus. No injection or drainage. Moist oral mucosa. NECK: Trachea midline. No JVD or lymphadenopathy. Supple, nontender, no meningeal signs. CARDIOVASCULAR: Regular rate and rhythm without murmurs, gallops, or rubs. RESPIRATORY: Breath sounds equal bilaterally. Has scattered wheezing bilaterally. GASTROINTESTINAL: Abdomen globular, slightly distended, non-tender. Bowel sounds are present and normoactive. No guarding no rebound. No organomegaly. MUSCULOSKELETAL: Has a well-healed incision on the right lateral thigh. Area of ecchymosis has decreased, and the skin remains indurated. No calf tenderness. Has decreased range of motion in the right hip joint NEUROLOGICAL: grossly non-focal PSYCH: Normal affect, calm and cooperative LINE: PICC RUE with no evidence of infection Assessment & Plan Remarks IMPRESSION Worsening R hip pain, patient with known complex fluid collection R hip, sterile on aspiration, felt to be a hematoma - has had repeat aspiration and C/S negative - There is some question as to objectively rate his pain - currently not showing any worsening of infection based on inflammatory markers, fluid collection also has decreased in size, physical findings also with evolving changes of hematoma Ghada R hip infection, S/P R hip surgery has Abx spacer 08/09 Known asthma, with exacerbation - CXR clear - has been on Abx for PNA Hx DVT RLE and PE RECOMMENDATION Continue Diflucan Continue Micafungin Per discussion with Dr Lindo, will hold off on any surgery Patient to get his antifungal Rx until November 20 as originally recommended by Dr Morris and will continue same Rx plan Lab monitoring weekly while on Rx Has been cleared by ortho for D/C Possibly D/C Friday per pulmonary Aria Hassan MD Oct 04, 2016 09:53
--- NOTE | 2016-10-04 09:54 | HHI.FF ---
Infusion Therapy Location of Infusion Therapy: [facility] IV Infusion Order Patient Information Patient Weight 97 kg Diagnosis: Diagnosis Ghada infection R hip Coded Allergies: Tetracycline (Verified Allergy, Severe, throat swells, 09/29/16) Demerol (Verified Allergy, Intermediate, hallucinations, 09/29/16) Administer Medication Micafungin 150 mg IV q 24 hours Stop Treatment: Nov 20, 2016 Administer Medication Diflucan 400 mg po daily Stop Treatment: Nov 20, 2016 Additional Information Venous access: PICC Line Additional Instructions [x] Peripheral flush and dressing changes per protocol [x] Implanted port and central line appliance assembler: * Implanted port: 10 ml Normal Saline followed by 5 ml Heparin 100 units/ml Heparin flush after each use and monthly to maintain. [] May leave port accessed during therapy. [] May leave peripheral site accessed for duration of therapy. [x] If patient has SOB or respiratory distress, check oxygen saturation. If less than 90% or clinical signs of respiratory distress, administer oxygen at 2 L/min. via nasal cannula and notify physician. [x] Anaphylaxis/Reaction orders: * Stop infusion. * Keep IV line open with saline flush. * Notify physician. * Monitor vital signs every 15 minutes until symptoms resolve. * Check Oxygen saturation; Oxygen at 2 L/min. via nasal cannula if less than 90% or clinical signs of respiratory distress. * Administer diphenhydramine (Benadryl) 25 mg IV STAT, (unless patient has received as pre-med). May repeat once, if necessary. * Solu-Cortef 250 mg IVP over 30-60 seconds, use 100 mg vials for each dissolution. * Epinephrine (1mg/1 ml) 0.3 mg subcutaneously or IVP now with any signs of respiratory distress. * Check with physician for new additional pre-med orders if patient is re- challenged or re-treated. [x] May remove PICC line when treatment complete, after confirming with Physician. [x] If the patient is admitted to the hospital, the ED, or transferred via [facility] , complete transfer form including medication reconciliation order sheet. Laboratory Tests Weekly Labs: CBC w/diff, Creatinine, LFT's (Hepatic function test), SED Rate ( Labs every Friday ) Aria Hassan MD Oct 04, 2016 09:54
[2016-10-04] MEDS: ACETAMINOPHEN/HYDROcodone 325 MG/7.5 MG TAB PO PRN (11:31)
[2016-10-04] MEDS: PROMETHAZINE/CODEINE 6.25 MG/10 MG/5 ML CUP PO PRN ×2 (11:31→16:01)
[2016-10-04 12:00] VITALS: BP 158/97; PULSE 93; RESP 16; TEMP 96.7; O2SAT 96
[2016-10-04 15:49] VITALS: O2SAT 97
[2016-10-04] MEDS: WARFARIN SOD 2 MG TAB PO SCH (15:59)
[2016-10-04] MEDS: MICAFUNGIN INJ 150 MG in SODIUM CHLORIDE 0.9% INJ 100 ML IV SCH (15:59)
[2016-10-04] MEDS: POLYETHYLENE GLYCOL 17 GM PKG PO PRN (15:59)
[2016-10-04 16:55] LABS: INTERNATIONAL NORMALIZED RATIO 1.1 RATIO; PROTHROMBIN TIME - PATIENT 12.1 SEC (9.8-11.6)
[2016-10-04 20:00] VITALS: BP 147/98; PULSE 101; RESP 16; TEMP 96.9; O2SAT 97
[2016-10-04] MEDS: MONTELUKAST SODIUM 10 MG TAB PO SCH (21:16)
[2016-10-04] MEDS: ATORVASTATIN 20 MG TAB PO SCH (21:16)
[2016-10-04] MEDS: INSULIN DETEMIR 100 UNITS/ML VIAL SQ SCH (21:16)
[2016-10-05] VITALS (9 sets, daily range): BP systolic 125–156; BP diastolic 88–95; PULSE 97–111; RESP 18–20; TEMP 95.8–97.6; O2SAT 94–99
[2016-10-05] MEDS: RESP: ALBUTEROL 2.5 MG/IPRATROPIUM 0.5 MG NEB (SCH) NEB ×6 (00:54→19:22)
[2016-10-05] MEDS: traMADol HCL 50 MG TAB PO PRN ×3 (01:07→17:11)
[2016-10-05] MEDS: oxyCODONE HCL 20 MG CONTROLLED RELEASE TAB PO SCH ×2 (06:12→17:50)
[2016-10-05] MEDS: INSULIN ASPART SUPPLEMENTAL SCALE SQ SCH ×4 (06:17→21:22)
[2016-10-05 06:36] LABS: INTERNATIONAL NORMALIZED RATIO 1.1 RATIO
[2016-10-05 06:46] LABS: AUTOMATED NEUTROPHIL # 7.8 TH/MM3 (1.8-7.7); BASOPHIL % 0.1 % (0.0-2.0); EOSINOPHIL % 0.1 % (0.0-4.0); HEMATOCRIT 28.7 % (39.0-51.0); LYMPH % 8.5 % (9.0-44.0); LYMPHOCYTE # 0.8 TH/MM3 (1.0-4.8); MEAN CELL VOLUME 78.3 FL (80.0-100.0); MEAN CORPUSCULAR HEMOGLOBIN 25.2 PG (27.0-34.0); MEAN CORPUSCULAR HGB CONC 32.2 % (32.0-36.0); MONO % 7.7 % (0.0-8.0); NEUT % 83.6 % (16.0-70.0); PLATELET COUNT 275 TH/MM3 (150-450); RED BLOOD COUNT 3.67 MIL/MM3 (4.50-5.90); RED CELL DISTRIBUTION WIDTH 24.2 % (11.6-17.2); WHITE BLOOD COUNT 9.3 TH/MM3 (4.0-11.0)
[2016-10-05 06:56] LABS: ANION GAP 10 MEQ/L (5-15); AST (GOT) 37 U/L (15-37); BICARBONATE 29.1 MEQ/L (21.0-32.0); BLOOD UREA NITROGEN 14 MG/DL (7-18); CHLORIDE 97 MEQ/L (98-107); GLOMERULAR FILTRATION RATE 105 ML/MIN (>89); POTASSIUM 3.8 MEQ/L (3.5-5.1); SODIUM (NA) 136 MEQ/L (136-145)
[2016-10-05 07:00] LABS: ALKALINE PHOSPHATASE 121 U/L (45-117); ALT (GPT) 89 U/L (12-78); TOTAL BILIRUBIN ADULT 0.4 MG/DL (0.2-1.0)
[2016-10-05 07:26] LABS: HEMO FLAGS AUTO DIFF
[2016-10-05 09:38] LABS: BANDS 2 % (0-6); CORRECTED NUCLEATED RBC 1 /100 WBC (0-0); METAMYELOCYTES 2 % (0-1); MYELOCYTES 4 % (0-0); NEUTROPHIL # MANUAL DIFF 7.2 TH/MM3 (1.8-7.7); POLYS (SEG NEUTROPHILS) 68 % (16-70); PROMYELOCYTES 1 % (0-0); WBC DIFF SAMPLE 100
[2016-10-05 09:41] LABS: PLATELET ESTIMATE SMEAR NORMAL (NORMAL); PLATELET MORPHOLOGY NORMAL (NORMAL); SCAN/DIFF FINAL DIFF MANUAL
[2016-10-05] MEDS: DILTIAZEM-CD 180 MG CAP ER PO SCH (09:55)
[2016-10-05] MEDS: PANTOPRAZOLE SOD 40 MG DELAYED RELEASE TAB PO SCH (09:56)
[2016-10-05] MEDS: FLUCONAZOLE 200 MG TAB PO SCH (09:56)
[2016-10-05] MEDS: LORazepam 0.5 MG TAB PO SCH ×2 (09:56→21:12)
[2016-10-05] MEDS: SUCRALFATE 1 GM TAB PO SCH ×3 (09:56→17:49)
[2016-10-05] MEDS: predniSONE 20 MG TAB PO SCH ×2 (09:56→21:11)
[2016-10-05] MEDS: POTASSIUM CHLORIDE 10 MEQ CONTROLLED RELEASE TAB PO SCH ×2 (09:56→21:11)
[2016-10-05] MEDS: SODIUM CHLORIDE 0.9% FLUSH 5 ML FLUSH IVF PRN (10:03)
[2016-10-05] MEDS: BUDESONIDE-FORMOTEROL 160/4.5 MCG INHALER INH SCH ×2 (10:04→21:14)
--- NOTE | 2016-10-05 10:59 | HHI.PR ---
Subjective History of Present Illness Patient have sever wheezing and pain Right hip ultrasound noted orthopedic input noted s/p needle drainage of hematoma right hip and d/w orthopedic not getting right hip hardware removed ..will keep and watch per orthopedic.. ...s/ p MRI Right hip shows 12 cm hematoma/seroma. s/p needle drainage. Holding coumadin .. high blood sugar on ISS + Levemir 15 units subcut. HS... D/W Patient Review of Systems Constitutional Constitutional: Fatigue, Weakness Pulmonary Respiratory: Shortness of Breath, Wheezing Musculoskeletal MS Remarks Right Hip pain/ swelling. Integumentary Skin Remarks right hip bruise. Vitals/Results Intake & Output 10/04/16 10/04/16 10/05/16 15:00 23:00 07:00 Intake Total 480 ml 720 ml 1200 ml Output Total 1050 ml 400 ml 1650 ml Balance -570 ml 320 ml -450 ml Intake Oral 480 ml 720 ml 1200 ml Output Urine Total 1050 ml 400 ml 1650 ml # Bowel Movements 0 1 Vital Signs Vital Signs Date Time Temp Pulse Resp B/P Pulse Ox O2 Delivery O2 Flow Rate FiO2 10/05/16 08:10 97 Nasal Cannula 3.00 10/05/16 08:00 94 Nasal Cannula 3.00 10/05/16 07:24 96.8 109 18 156/92 94 10/05/16 00:55 94 Nasal Cannula 10/05/16 00:15 97.6 104 20 136/95 99 10/04/16 20:00 96.9 101 16 147/98 97 10/04/16 20:00 97 Nasal Cannula 2.00 10/04/16 15:49 97 Nasal Cannula 2.00 10/04/16 12:00 96.7 93 16 158/97 96 CBC/BMP: 10/05/16 0520 10/05/16 0520 Lab Results Laboratory Tests Test 10/04/16 10/05/16 16:11 05:20 Prothrombin Time 12.1 SEC 12.0 SEC Prothromb Time International 1.1 RATIO 1.1 RATIO Ratio White Blood Count 9.3 TH/MM3 Red Blood Count 3.67 MIL/MM3 Hemoglobin 9.2 GM/DL Hematocrit 28.7 % Mean Corpuscular Volume 78.3 FL Mean Corpuscular Hemoglobin 25.2 PG Mean Corpuscular Hemoglobin 32.2 % Concent Red Cell Distribution Width 24.2 % Platelet Count 275 TH/MM3 Mean Platelet Volume 6.9 FL Neutrophils (%) (Auto) 83.6 % Lymphocytes (%) (Auto) 8.5 % Monocytes (%) (Auto) 7.7 % Eosinophils (%) (Auto) 0.1 % Basophils (%) (Auto) 0.1 % Neutrophils # (Auto) 7.8 TH/MM3 Lymphocytes # (Auto) 0.8 TH/MM3 Monocytes # (Auto) 0.7 TH/MM3 Eosinophils # (Auto) 0.0 TH/MM3 Basophils # (Auto) 0.0 TH/MM3 CBC Comment AUTO DIFF Differential Total Cells 100 Counted Neutrophils % (Manual) 68 % Band Neutrophils % 2 % Lymphocytes % 14 % Monocytes % 9 % Neutrophils # (Manual) 7.2 TH/MM3 Metamyelocytes 2 % Myelocytes 4 % Promyelocytes 1 % Nucleated Red Blood Cells 1 /100 WBC Differential Comment FINAL DIFF MANUAL Platelet Estimate NORMAL Platelet Morphology Comment NORMAL Polychromasia 3.0 % Basophilic Stippling FAINT Sodium Level 136 MEQ/L Potassium Level 3.8 MEQ/L Chloride Level 97 MEQ/L Carbon Dioxide Level 29.1 MEQ/L Anion Gap 10 MEQ/L Blood Urea Nitrogen 14 MG/DL Creatinine 0.78 MG/DL Estimat Glomerular Filtration 105 ML/MIN Rate Random Glucose 251 MG/DL Calcium Level 8.5 MG/DL Total Bilirubin 0.4 MG/DL Aspartate Amino Transf 37 U/L (AST/SGOT) Alanine Aminotransferase 89 U/L (ALT/SGPT) Alkaline Phosphatase 121 U/L Total Protein 5.8 GM/DL Albumin 3.3 GM/DL Physical Exam General General Appearance: No Acute Distress, Comfortable Eyes Eye Exam: Pupils Equal, Pupils Reactive, Sclera White, Extraocular Movement Intact Throat Throat Exam: Oral Mucosa [place] & Moist, Oral Pharynx Normal Neck Neck Exam: Neck Supple, Trachea Midline Pulmonary Resp Exam: Crackles, Diminished Breath Sounds Resp Remarks Sever Bilateral Wheezing. Cardiology CV Exam: Regular, Normal Sinus Rhythm Gastrointestinal/Abdomen GI Exam: Soft, Non-Tender, Bowel Sounds Present, Distended Musculoskeletal MS Exam: Normal Tone Integumentary Skin Exam: Warm, Dry Extremeties Extremities Exam: No Edema Neurologic Neuro Exam: Alert, Awake, Oriented, Speech Clear, Moving All Extremities, Operating Systems Programmer Equal, No Focal Deficits VTE Prophylaxis VTE Prophylaxis Meds: Coumadin PUD Prophylasis PUD Prophylaxis: Protonix Assessment/Plan Assessment/Plan ASSESSMENT AND PLAN: 1. This is a 51-year-old male who came to the emergency room diagnosed with shortness of breath and wheezing secondary to asthma exacerbation. The patient on solumedrol 60 milligrams IV q.6 h and also Xopenex and Atrovent nebulization and pulmonary input noted. The patient is on oxygen. Further recommendation per pulmonary. 2. History for right hip infection with fungus. The patient is on Diflucan. He has right hip swelling and pain. Right hip ultrasound noted orthopedic input noted s/p needle drainage of hematoma right hip and d/w orthopedic not getting right hip hardware removed ..will keep and watch per orthopedic. S/P MRI Right hip shows 12 cm hematoma/seroma. s/p needle drainage. 3. Septic right hip. The patient is on Diflucan + Micafungin... Infectious disease input noted.. Will monitor. 4. History of chronic obstructive pulmonary disease. Continue home medications. 5. History of depression. Continue home medications. 6. History of anxiety. Continue with Ativan 0.5 milligrams twice a day. 7. Right hip pain. The patient on tramadol and [place] and also Dilaudid 0.5 milligrams p.o. q. 6 hours PRN pain. 8. History of hyperlipidemia. Continue on Lipitor 20 milligrams p.o. daily. 9. DVT prophylaxis. The patient is off coumadin. INR is subtherapeutic. 10. GI prophylaxis. Protonix 40 milligrams p.o. daily. The patient is also on Carafate 1 gram p.o. three times a day. 11. History of pulmonary embolism and DVT right leg. The patient is off coumadin and INR is subtherapeutic. Will monitor INR daily. 12. High blood sugar continue with ISS + Levemir 15 units subcut. HS. monitoring blood glucose. Check CBC with diff CMP in AM. We are going to manage the patient on a daily basis and make recommendations on a daily basis. Discussed Condition with: Patient Myron Woodward MD Oct 05, 2016 10:59
[2016-10-05] MEDS: PROMETHAZINE/CODEINE 6.25 MG/10 MG/5 ML CUP PO PRN (14:27)
[2016-10-05] MEDS: WARFARIN SOD 2 MG TAB PO SCH (17:09)
[2016-10-05] MEDS: MICAFUNGIN INJ 150 MG in SODIUM CHLORIDE 0.9% INJ 100 ML IV SCH (17:14)
[2016-10-05] MEDS: ATORVASTATIN 20 MG TAB PO SCH (21:11)
[2016-10-05] MEDS: MONTELUKAST SODIUM 10 MG TAB PO SCH (21:12)
[2016-10-05] MEDS: INSULIN DETEMIR 100 UNITS/ML VIAL SQ SCH (21:12)
[2016-10-05] MEDS: RESP: ALBUTEROL 2.5 MG/IPRATROPIUM 0.5 MG NEB (PRN) NEB (22:08)
[2016-10-05] MEDS: ACETAMINOPHEN/HYDROcodone 325 MG/7.5 MG TAB PO PRN (23:31)
[2016-10-06] MEDS: RESP: ALBUTEROL 2.5 MG/IPRATROPIUM 0.5 MG NEB (PRN) NEB ×3 (00:44→07:58)
[2016-10-06] MEDS: PROMETHAZINE/CODEINE 6.25 MG/10 MG/5 ML CUP PO PRN (01:09)
[2016-10-06] MEDS: traMADol HCL 50 MG TAB PO PRN ×3 (01:10→17:29)
[2016-10-06] MEDS: oxyCODONE HCL 20 MG CONTROLLED RELEASE TAB PO SCH ×2 (05:56→18:00)
[2016-10-06] MEDS: INSULIN ASPART SUPPLEMENTAL SCALE SQ SCH ×4 (06:01→20:53)
[2016-10-06 07:15] LABS: AUTOMATED NEUTROPHIL # 7.3 TH/MM3 (1.8-7.7); BASOPHIL % 0.3 % (0.0-2.0); EOSINOPHIL % 0.2 % (0.0-4.0); LYMPH % 7.4 % (9.0-44.0); LYMPHOCYTE # 0.6 TH/MM3 (1.0-4.8); MEAN CELL VOLUME 79.3 FL (80.0-100.0); MEAN CORPUSCULAR HEMOGLOBIN 25.2 PG (27.0-34.0); MEAN CORPUSCULAR HGB CONC 31.7 % (32.0-36.0); MONO % 6.3 % (0.0-8.0); NEUT % 85.8 % (16.0-70.0); PLATELET COUNT 250 TH/MM3 (150-450); RED BLOOD COUNT 3.66 MIL/MM3 (4.50-5.90); WHITE BLOOD COUNT 8.5 TH/MM3 (4.0-11.0)
[2016-10-06 07:28] LABS: INTERNATIONAL NORMALIZED RATIO 1.2 RATIO; PROTHROMBIN TIME - PATIENT 12.8 SEC (9.8-11.6)
[2016-10-06 07:31] LABS: ANION GAP 7 MEQ/L (5-15); AST (GOT) 39 U/L (15-37); BICARBONATE 30.5 MEQ/L (21.0-32.0); BLOOD UREA NITROGEN 13 MG/DL (7-18); CHLORIDE 99 MEQ/L (98-107); GLOMERULAR FILTRATION RATE 103 ML/MIN (>89); POTASSIUM 3.9 MEQ/L (3.5-5.1); SODIUM (NA) 136 MEQ/L (136-145)
[2016-10-06 07:34] LABS: ALKALINE PHOSPHATASE 117 U/L (45-117); ALT (GPT) 103 U/L (12-78); TOTAL BILIRUBIN ADULT 0.3 MG/DL (0.2-1.0)
[2016-10-06 07:35] LABS: HEMO FLAGS AUTO DIFF
[2016-10-06 07:58] VITALS: O2SAT 98
[2016-10-06 08:00] VITALS: BP 135/92; PULSE 105; RESP 18; TEMP 96.5; O2SAT 98
[2016-10-06] MEDS: BUDESONIDE-FORMOTEROL 160/4.5 MCG INHALER INH SCH ×2 (09:16→20:53)
[2016-10-06] MEDS: SUCRALFATE 1 GM TAB PO SCH ×3 (09:16→17:29)
[2016-10-06] MEDS: PANTOPRAZOLE SOD 40 MG DELAYED RELEASE TAB PO SCH (09:17)
[2016-10-06] MEDS: FLUCONAZOLE 200 MG TAB PO SCH (09:17)
[2016-10-06] MEDS: DILTIAZEM-CD 180 MG CAP ER PO SCH (09:17)
[2016-10-06] MEDS: POTASSIUM CHLORIDE 10 MEQ CONTROLLED RELEASE TAB PO SCH ×2 (09:17→20:53)
[2016-10-06] MEDS: LORazepam 0.5 MG TAB PO SCH ×2 (09:17→20:53)
[2016-10-06] MEDS: predniSONE 20 MG TAB PO SCH ×2 (09:17→20:53)
[2016-10-06 09:50] LABS: BANDS 8 % (0-6); METAMYELOCYTES 3 % (0-1); MYELOCYTES 10 % (0-0); NEUTROPHIL # MANUAL DIFF 6.9 TH/MM3 (1.8-7.7); PLATELET ESTIMATE SMEAR NORMAL (NORMAL); PLATELET MORPHOLOGY NORMAL (NORMAL); POLYS (SEG NEUTROPHILS) 60 % (16-70); SCAN/DIFF FINAL DIFF MANUAL; WBC DIFF SAMPLE 100
--- NOTE | 2016-10-06 10:32 | HHI.PR ---
Subjective History of Present Illness Patient have sever wheezing and pain Right hip PAIN BETTER ... ...s/p MRI Right hip shows 12 cm hematoma/seroma. s/p needle drainage. Holding coumadin .. high blood sugar on ISS + Levemir 15 units subcut. HS... D/W Patient Review of Systems Constitutional Constitutional: Fatigue, Weakness Pulmonary Respiratory: Shortness of Breath, Wheezing Musculoskeletal MS Remarks Right Hip pain/ swelling. Integumentary Skin Remarks right hip bruise. Vitals/Results Intake & Output 10/05/16 10/05/16 10/06/16 15:00 23:00 07:00 Intake Total 1200 ml 1200 ml 960 ml Output Total 1700 ml 900 ml 3300 ml Balance -500 ml 300 ml -2340 ml Intake Oral 1200 ml 1200 ml 960 ml Output Urine Total 1700 ml 900 ml 3300 ml # Voids 4 # Bowel Movements 2 1 0 Vital Signs Vital Signs Date Time Temp Pulse Resp B/P Pulse Ox O2 Delivery O2 Flow Rate FiO2 10/06/16 08:00 96.5 105 18 135/92 98 10/06/16 08:00 98 Nasal Cannula 3.00 10/06/16 07:58 98 Nasal Cannula 2.00 10/05/16 23:30 96.3 107 18 137/89 97 10/05/16 23:05 Nasal Cannula 2.00 10/05/16 20:30 96.3 111 18 129/93 97 10/05/16 19:24 97 Nasal Cannula 2.00 10/05/16 15:45 95.8 108 18 125/88 98 10/05/16 11:50 96.4 97 18 152/92 98 CBC/BMP: 10/06/16 0645 10/06/16 0645 Lab Results Laboratory Tests Test 10/06/16 06:45 White Blood Count 8.5 TH/MM3 Red Blood Count 3.66 MIL/MM3 Hemoglobin 9.2 GM/DL Hematocrit 29.0 % Mean Corpuscular Volume 79.3 FL Mean Corpuscular Hemoglobin 25.2 PG Mean Corpuscular Hemoglobin 31.7 % Concent Red Cell Distribution Width 24.0 % Platelet Count 250 TH/MM3 Mean Platelet Volume 7.0 FL Neutrophils (%) (Auto) 85.8 % Lymphocytes (%) (Auto) 7.4 % Monocytes (%) (Auto) 6.3 % Eosinophils (%) (Auto) 0.2 % Basophils (%) (Auto) 0.3 % Neutrophils # (Auto) 7.3 TH/MM3 Lymphocytes # (Auto) 0.6 TH/MM3 Monocytes # (Auto) 0.5 TH/MM3 Eosinophils # (Auto) 0.0 TH/MM3 Basophils # (Auto) 0.0 TH/MM3 CBC Comment AUTO DIFF Differential Total Cells 100 Counted Neutrophils % (Manual) 60 % Band Neutrophils % 8 % Lymphocytes % 8 % Monocytes % 11 % Neutrophils # (Manual) 6.9 TH/MM3 Metamyelocytes 3 % Myelocytes 10 % Differential Comment FINAL DIFF MANUAL Platelet Estimate NORMAL Platelet Morphology Comment NORMAL Prothrombin Time 12.8 SEC Prothromb Time International 1.2 RATIO Ratio Sodium Level 136 MEQ/L Potassium Level 3.9 MEQ/L Chloride Level 99 MEQ/L Carbon Dioxide Level 30.5 MEQ/L Anion Gap 7 MEQ/L Blood Urea Nitrogen 13 MG/DL Creatinine 0.79 MG/DL Estimat Glomerular Filtration 103 ML/MIN Rate Random Glucose 250 MG/DL Calcium Level 8.6 MG/DL Total Bilirubin 0.3 MG/DL Aspartate Amino Transf 39 U/L (AST/SGOT) Alanine Aminotransferase 103 U/L (ALT/SGPT) Alkaline Phosphatase 117 U/L Total Protein 5.7 GM/DL Albumin 3.3 GM/DL Physical Exam General General Appearance: No Acute Distress, Comfortable Eyes Eye Exam: Pupils Equal, Pupils Reactive, Sclera White, Extraocular Movement Intact Throat Throat Exam: Oral Mucosa [place] & Moist, Oral Pharynx Normal Neck Neck Exam: Neck Supple, Trachea Midline Pulmonary Resp Exam: Crackles, Diminished Breath Sounds Resp Remarks Sever Bilateral Wheezing. Cardiology CV Exam: Regular, Normal Sinus Rhythm Gastrointestinal/Abdomen GI Exam: Soft, Non-Tender, Bowel Sounds Present, Distended Musculoskeletal MS Exam: Normal Tone Integumentary Skin Exam: Warm, Dry Extremeties Extremities Exam: No Edema Neurologic Neuro Exam: Alert, Awake, Oriented, Speech Clear, Moving All Extremities, Sand System Operator Equal, No Focal Deficits VTE Prophylaxis VTE Prophylaxis Meds: Coumadin PUD Prophylasis PUD Prophylaxis: Protonix Assessment/Plan Assessment/Plan ASSESSMENT AND PLAN: 1. This is a 51-year-old male who came to the emergency room diagnosed with shortness of breath and wheezing secondary to asthma exacerbation. The patient on Prednisone 20 MG PO Daily.and also Xopenex and Atrovent nebulization and pulmonary input noted. The patient is on oxygen. Further recommendation per pulmonary. 2. History for right hip infection with fungus. The patient is on Diflucan. He has right hip swelling and pain. Right hip ultrasound noted orthopedic input noted s/p needle drainage of hematoma right hip and d/w orthopedic not getting right hip hardware removed ..will keep and watch per orthopedic. S/P MRI Right hip shows 12 cm hematoma/seroma. s/p needle drainage. 3. Septic right hip. The patient is on Diflucan + Micafungin... Infectious disease input noted.. Will monitor. 4. History of chronic obstructive pulmonary disease. Continue home medications. 5. History of depression. Continue home medications. 6. History of anxiety. Continue with Ativan 0.5 milligrams twice a day. 7. Right hip pain. The patient on tramadol and [place] and also Dilaudid 0.5 milligrams p.o. q. 6 hours PRN pain. 8. History of hyperlipidemia. Continue on Lipitor 20 milligrams p.o. daily. 9. DVT prophylaxis. The patient is on coumadin. INR is subtherapeutic. 10. GI prophylaxis. Protonix 40 milligrams p.o. daily. The patient is also on Carafate 1 gram p.o. three times a day. 11. History of pulmonary embolism and DVT right leg. The patient is on coumadin and INR is subtherapeutic. Will monitor INR daily. 12. High blood sugar continue with ISS + Levemir 15 units subcut. HS. monitoring blood glucose. Check CBC with diff CMP in AM. We are going to manage the patient on a daily basis and make recommendations on a daily basis. Discussed Condition with: Patient Myron Woodward MD Oct 06, 2016 10:32 Myron Woodward MD Oct 06, 2016 10:32
[2016-10-06] MEDS: RESP: ALBUTEROL 2.5 MG/IPRATROPIUM 0.5 MG NEB (SCH) NEB ×4 (11:40→23:27)
[2016-10-06 12:00] VITALS: BP 130/90; PULSE 95; RESP 18; TEMP 97.7; O2SAT 98
[2016-10-06] MEDS: ACETAMINOPHEN/HYDROcodone 325 MG/7.5 MG TAB PO PRN (14:49)
[2016-10-06 16:00] VITALS: BP 140/88; PULSE 110; RESP 18; TEMP 97.3; O2SAT 97
[2016-10-06] MEDS: WARFARIN SOD 2 MG TAB PO SCH (17:28)
[2016-10-06] MEDS: MICAFUNGIN INJ 150 MG in SODIUM CHLORIDE 0.9% INJ 100 ML IV SCH (17:34)
[2016-10-06 19:45] VITALS: BP 156/99; PULSE 105; RESP 19; TEMP 96.6; O2SAT 98
[2016-10-06 19:55] VITALS: O2SAT 95
[2016-10-06 19:56] LABS: INTERNATIONAL NORMALIZED RATIO 1.2 RATIO; PROTHROMBIN TIME - PATIENT 13.2 SEC (9.8-11.6)
[2016-10-06] MEDS: INSULIN DETEMIR 100 UNITS/ML VIAL SQ SCH (20:52)
[2016-10-06] MEDS: ATORVASTATIN 20 MG TAB PO SCH (20:53)
[2016-10-06] MEDS: MONTELUKAST SODIUM 10 MG TAB PO SCH (20:53)
[2016-10-07] VITALS (7 sets, daily range): BP systolic 122–137; BP diastolic 84–98; PULSE 96–103; RESP 16–22; TEMP 95.8–97.1; O2SAT 95–97
[2016-10-07] MEDS: RESP: ALBUTEROL 2.5 MG/IPRATROPIUM 0.5 MG NEB (SCH) NEB ×5 (03:08→19:02)
[2016-10-07] MEDS: PROMETHAZINE/CODEINE 6.25 MG/10 MG/5 ML CUP PO PRN (03:50)
[2016-10-07] MEDS: ACETAMINOPHEN/HYDROcodone 325 MG/7.5 MG TAB PO PRN ×3 (03:50→23:35)
[2016-10-07 04:38] LABS: AUTOMATED NEUTROPHIL # 9.1 TH/MM3 (1.8-7.7); BASOPHIL % 0.1 % (0.0-2.0); EOSINOPHIL % 0.1 % (0.0-4.0); HEMATOCRIT 30.5 % (39.0-51.0); LYMPH % 9.8 % (9.0-44.0); LYMPHOCYTE # 1.1 TH/MM3 (1.0-4.8); MEAN CELL VOLUME 79.3 FL (80.0-100.0); MEAN CORPUSCULAR HEMOGLOBIN 25.1 PG (27.0-34.0); MEAN CORPUSCULAR HGB CONC 31.6 % (32.0-36.0); MONO % 5.8 % (0.0-8.0); NEUT % 84.2 % (16.0-70.0); PLATELET COUNT 260 TH/MM3 (150-450); RED BLOOD COUNT 3.84 MIL/MM3 (4.50-5.90); RED CELL DISTRIBUTION WIDTH 24.3 % (11.6-17.2); WHITE BLOOD COUNT 10.9 TH/MM3 (4.0-11.0)
[2016-10-07 04:44] LABS: HEMO FLAGS AUTO DIFF
[2016-10-07 04:50] LABS: INTERNATIONAL NORMALIZED RATIO 1.3 RATIO; PROTHROMBIN TIME - PATIENT 14.6 SEC (9.8-11.6)
[2016-10-07 05:02] LABS: ALT (GPT) 122 U/L (12-78); AST (GOT) 46 U/L (15-37); CHLORIDE 100 MEQ/L (98-107); GLOMERULAR FILTRATION RATE 113 ML/MIN (>89); SODIUM (NA) 137 MEQ/L (136-145)
[2016-10-07] MEDS: INSULIN ASPART SUPPLEMENTAL SCALE SQ SCH ×4 (05:24→20:41)
[2016-10-07] MEDS: oxyCODONE HCL 20 MG CONTROLLED RELEASE TAB PO SCH ×2 (05:24→17:38)
[2016-10-07 05:38] LABS: ALKALINE PHOSPHATASE 124 U/L (45-117); ANION GAP 6 MEQ/L (5-15); BLOOD UREA NITROGEN 8 MG/DL (7-18); TOTAL BILIRUBIN ADULT 0.3 MG/DL (0.2-1.0)
[2016-10-07 07:51] LABS: BANDS 6 % (0-6); CORRECTED NUCLEATED RBC 1 /100 WBC (0-0); METAMYELOCYTES 1 % (0-1); MYELOCYTES 10 % (0-0); NEUTROPHIL # MANUAL DIFF 9.4 TH/MM3 (1.8-7.7); POLYS (SEG NEUTROPHILS) 69 % (16-70); WBC DIFF SAMPLE 100
[2016-10-07 07:52] LABS: PLATELET ESTIMATE SMEAR NORMAL (NORMAL); PLATELET MORPHOLOGY NORMAL (NORMAL); SCAN/DIFF FINAL DIFF MANUAL
--- NOTE | 2016-10-07 08:08 | HHI.PR ---
Subjective History of Present Illness Patient have sever wheezing and pain Right hip pain better. ... S/P MRI Right hip shows 12 cm hematoma/seroma. s/p needle drainage. on coumadin .. high blood sugar on ISS + Levemir 15 units subcut. HS. D/W Patient Review of Systems Constitutional Constitutional: Fatigue, Weakness Pulmonary Respiratory: Shortness of Breath, Wheezing Musculoskeletal MS Remarks Right Hip pain/ swelling. Integumentary Skin Remarks right hip bruise. Vitals/Results Intake & Output 10/06/16 10/06/16 10/07/16 15:00 23:00 07:00 Intake Total 960 ml 1080 ml 960 ml Output Total 1300 ml 2400 ml Balance -340 ml 1080 ml -1440 ml Intake Oral 960 ml 960 ml 960 ml IV Total 120 ml Output Urine Total 1300 ml 2400 ml # Voids 4 # Bowel Movements 2 2 0 Vital Signs Vital Signs Date Time Temp Pulse Resp B/P Pulse Ox O2 Delivery O2 Flow Rate FiO2 10/07/16 07:41 96.3 96 18 132/89 97 10/07/16 07:29 97 Nasal Cannula 2.00 10/07/16 00:05 96.5 101 18 135/90 97 10/06/16 19:55 95 Nasal Cannula 3.00 10/06/16 19:45 96.6 105 19 156/99 98 10/06/16 16:00 97.3 110 18 140/88 97 10/06/16 12:00 97.7 95 18 130/90 98 CBC/BMP: 10/07/16 0342 10/07/16 0342 Lab Results Laboratory Tests Test 10/06/16 10/07/16 19:30 03:42 Prothrombin Time 13.2 SEC 14.6 SEC Prothromb Time International 1.2 RATIO 1.3 RATIO Ratio White Blood Count 10.9 TH/MM3 Red Blood Count 3.84 MIL/MM3 Hemoglobin 9.6 GM/DL Hematocrit 30.5 % Mean Corpuscular Volume 79.3 FL Mean Corpuscular Hemoglobin 25.1 PG Mean Corpuscular Hemoglobin 31.6 % Concent Red Cell Distribution Width 24.3 % Platelet Count 260 TH/MM3 Mean Platelet Volume 7.1 FL Neutrophils (%) (Auto) 84.2 % Lymphocytes (%) (Auto) 9.8 % Monocytes (%) (Auto) 5.8 % Eosinophils (%) (Auto) 0.1 % Basophils (%) (Auto) 0.1 % Neutrophils # (Auto) 9.1 TH/MM3 Lymphocytes # (Auto) 1.1 TH/MM3 Monocytes # (Auto) 0.6 TH/MM3 Eosinophils # (Auto) 0.0 TH/MM3 Basophils # (Auto) 0.0 TH/MM3 CBC Comment AUTO DIFF Differential Total Cells 100 Counted Neutrophils % (Manual) 69 % Band Neutrophils % 6 % Lymphocytes % 10 % Monocytes % 4 % Neutrophils # (Manual) 9.4 TH/MM3 Metamyelocytes 1 % Myelocytes 10 % Nucleated Red Blood Cells 1 /100 WBC Differential Comment FINAL DIFF MANUAL Platelet Estimate NORMAL Platelet Morphology Comment NORMAL Basophilic Stippling MOD Sodium Level 137 MEQ/L Potassium Level 4.0 MEQ/L Chloride Level 100 MEQ/L Carbon Dioxide Level 31.0 MEQ/L Anion Gap 6 MEQ/L Blood Urea Nitrogen 8 MG/DL Creatinine 0.73 MG/DL Estimat Glomerular Filtration 113 ML/MIN Rate Random Glucose 220 MG/DL Calcium Level 8.7 MG/DL Total Bilirubin 0.3 MG/DL Aspartate Amino Transf 46 U/L (AST/SGOT) Alanine Aminotransferase 122 U/L (ALT/SGPT) Alkaline Phosphatase 124 U/L Total Protein 5.8 GM/DL Albumin 3.3 GM/DL Physical Exam General General Appearance: No Acute Distress, Comfortable Eyes Eye Exam: Pupils Equal, Pupils Reactive, Sclera White, Extraocular Movement Intact Throat Throat Exam: Oral Mucosa [place] & Moist, Oral Pharynx Normal Neck Neck Exam: Neck Supple, Trachea Midline Pulmonary Resp Exam: Crackles, Diminished Breath Sounds Resp Remarks Sever Bilateral Wheezing. Cardiology CV Exam: Regular, Normal Sinus Rhythm Gastrointestinal/Abdomen GI Exam: Soft, Non-Tender, Bowel Sounds Present, Distended Musculoskeletal MS Exam: Normal Tone Integumentary Skin Exam: Warm, Dry Extremeties Extremities Exam: No Edema Neurologic Neuro Exam: Alert, Awake, Oriented, Speech Clear, Moving All Extremities, Rn Interventional Equal, No Focal Deficits VTE Prophylaxis VTE Prophylaxis Meds: Coumadin PUD Prophylasis PUD Prophylaxis: Protonix Assessment/Plan Assessment/Plan ASSESSMENT AND PLAN: 1. This is a 51-year-old male who came to the emergency room diagnosed with shortness of breath and wheezing secondary to asthma exacerbation. The patient on Prednisone 20 mg PO Daily.and also Xopenex and Atrovent nebulization and pulmonary input noted. The patient is on oxygen. Further recommendation per pulmonary. 2. History for right hip infection with fungus. The patient is on Diflucan. He has right hip swelling and pain. Right hip ultrasound noted orthopedic input noted s/p needle drainage of hematoma right hip and d/w orthopedic not getting right hip hardware removed ..will keep and watch per orthopedic. S/P MRI Right hip shows 12 cm hematoma/seroma. s/p needle drainage. 3. Septic right hip. The patient is on Diflucan + Micafungin... Infectious disease input noted.. Will monitor. 4. History of chronic obstructive pulmonary disease. Continue home medications. 5. History of depression. Continue home medications. 6. History of anxiety. Continue with Ativan 0.5 milligrams twice a day. 7. Right hip pain. The patient on tramadol and [place] and also Dilaudid 0.5 milligrams p.o. q. 6 hours PRN pain. 8. History of hyperlipidemia. Continue on Lipitor 20 milligrams p.o. daily. 9. DVT prophylaxis. The patient is on coumadin. INR is subtherapeutic. 10. GI prophylaxis. Protonix 40 milligrams p.o. daily. The patient is also on Carafate 1 gram p.o. three times a day. 11. History of pulmonary embolism and DVT right leg. The patient is on coumadin and INR is subtherapeutic. Will monitor INR daily. 12. High blood sugar continue with ISS + Levemir 15 units subcut. HS. monitoring blood glucose. Check CBC with diff CMP in AM. We are going to manage the patient on a daily basis and make recommendations on a daily basis. Discussed Condition with: Patient Myron Woodward MD Oct 07, 2016 08:08
[2016-10-07] MEDS: LORazepam 0.5 MG TAB PO SCH ×2 (08:30→20:35)
[2016-10-07] MEDS: SUCRALFATE 1 GM TAB PO SCH ×3 (08:30→17:34)
[2016-10-07] MEDS: FLUCONAZOLE 200 MG TAB PO SCH (08:30)
[2016-10-07] MEDS: PANTOPRAZOLE SOD 40 MG DELAYED RELEASE TAB PO SCH (08:30)
[2016-10-07] MEDS: predniSONE 20 MG TAB PO SCH ×2 (08:30→20:35)
[2016-10-07] MEDS: DILTIAZEM-CD 180 MG CAP ER PO SCH (08:30)
[2016-10-07] MEDS: BUDESONIDE-FORMOTEROL 160/4.5 MCG INHALER INH SCH ×2 (08:32→20:34)
[2016-10-07] MEDS: POTASSIUM CHLORIDE 10 MEQ CONTROLLED RELEASE TAB PO SCH ×2 (08:38→20:35)
[2016-10-07] MEDS ORDERED: IOHEXOL 350 MG/ML 10 ML VIAL (for RAD DIAG) IV ONE (17:12)
--- NOTE | 2016-10-07 17:27 | RADRPT ---
EXAM DATE/TIME: 10/07/2016 16:45 [facility] COMPARISON: CT PELVIS W/O CONTRAST, September 30, 2016, 16:30. ASPIRATION, HIP, RIGHT, October 01, 2016, 13:44. M RI HIP RIGHT W & W/O CONTRAST, October 02, 2016, 9:13. INDICATIONS : History of right hip infection,patient still having pain and swelling. IV CONTRAST: 90 cc Omnipaque 350 (iohexol) IV ORAL CONTRAST: No oral contrast ingested. RADIATION DOSE: 15.10 CTDIvol (mGy) MEDICAL HISTORY : Cardiovascular disease. Hypertension. Deep venous thrombosis.Diabetes,COPD SURGICAL HISTORY : Orthopectic rt hip ENCOUNTER: Subsequent ACUITY: 3 months PAIN SCALE: 7/10 LOCATION: Right pelvis HIP TECHNIQUE: Volumetric scanning of the pelvis was performed. Using automated exposure control and adjustment of t he mA and/or kV according to patient size, radiation dose was kept as low as reasonably achievable to obtain optimal diagnostic quality images. FINDINGS: Total hip prosthesis is again noted in place on the right well seated. Intrapelvic contents are negat yaya. Fluid collection adjacent to the posterior aspect of the hip remains present unchanged overall i n size maximal vertically of 12 cm and configuration with a second area of somewhat superficial but p robably contiguous with this being 4 cm in size. CONCLUSION: Stable fluid collection posterior to a total right hip prosthesis. Abdirashid Diaz MD on October 07, 2016 at 17:21 Board Certified Radiologist. This report was verified electronically.
[2016-10-07] MEDS: WARFARIN SOD 2 MG TAB PO SCH (17:34)
[2016-10-07] MEDS: MICAFUNGIN INJ 150 MG in SODIUM CHLORIDE 0.9% INJ 100 ML IV SCH (20:29)
[2016-10-07] MEDS: MONTELUKAST SODIUM 10 MG TAB PO SCH (20:35)
[2016-10-07] MEDS: ATORVASTATIN 20 MG TAB PO SCH (20:35)
[2016-10-07] MEDS: INSULIN DETEMIR 100 UNITS/ML VIAL SQ SCH (20:35)
[2016-10-07 21:11] LABS: INTERNATIONAL NORMALIZED RATIO 1.3 RATIO; PROTHROMBIN TIME - PATIENT 14.4 SEC (9.8-11.6)
[2016-10-08] VITALS (10 sets, daily range): BP systolic 130–145; BP diastolic 85–96; PULSE 90–113; RESP 16–18; TEMP 95.5–97.2; O2SAT 96–99
[2016-10-08] MEDS: RESP: ALBUTEROL 2.5 MG/IPRATROPIUM 0.5 MG NEB (SCH) NEB ×6 (04:05→23:46)
[2016-10-08] MEDS: oxyCODONE HCL 20 MG CONTROLLED RELEASE TAB PO SCH ×2 (05:50→17:45)
[2016-10-08 06:22] LABS: MEAN CELL VOLUME 79.6 FL (80.0-100.0); MEAN CORPUSCULAR HEMOGLOBIN 25.9 PG (27.0-34.0); MEAN CORPUSCULAR HGB CONC 32.5 % (32.0-36.0); PLATELET COUNT 273 TH/MM3 (150-450); RED BLOOD COUNT 3.64 MIL/MM3 (4.50-5.90); RED CELL DISTRIBUTION WIDTH 24.7 % (11.6-17.2); WHITE BLOOD COUNT 11.7 TH/MM3 (4.0-11.0)
[2016-10-08 06:42] LABS: HEMO FLAGS AUTO DIFF
[2016-10-08 06:51] LABS: ALKALINE PHOSPHATASE 148 U/L (45-117); ALT (GPT) 114 U/L (12-78); ANION GAP 8 MEQ/L (5-15); AST (GOT) 46 U/L (15-37); BICARBONATE 30.8 MEQ/L (21.0-32.0); BLOOD UREA NITROGEN 13 MG/DL (7-18); CHLORIDE 99 MEQ/L (98-107); GLOMERULAR FILTRATION RATE 90 ML/MIN (>89); POTASSIUM 3.7 MEQ/L (3.5-5.1); SODIUM (NA) 138 MEQ/L (136-145); TOTAL BILIRUBIN ADULT 0.2 MG/DL (0.2-1.0)
[2016-10-08] MEDS: INSULIN ASPART SUPPLEMENTAL SCALE SQ SCH ×4 (07:00→20:41)
[2016-10-08 08:01] LABS: BANDS 7 % (0-6); CORRECTED NUCLEATED RBC 3 /100 WBC (0-0); METAMYELOCYTES 1 % (0-1); MYELOCYTES 8 % (0-0); NEUTROPHIL # MANUAL DIFF 10.3 TH/MM3 (1.8-7.7); POLYS (SEG NEUTROPHILS) 71 % (16-70); PROMYELOCYTES 1 % (0-0); WBC DIFF SAMPLE 100
[2016-10-08 08:02] LABS: OVALOCYTES 1+ (NORMAL); PLATELET ESTIMATE SMEAR NORMAL (NORMAL); PLATELET MORPHOLOGY NORMAL (NORMAL); SCAN/DIFF FINAL DIFF MANUAL
--- NOTE | 2016-10-08 09:05 | HHI.PR ---
Subjective History of Present Illness Patient have sever wheezing and pain Right hip pain better. ... S/P CT Pelvis show no more hematoma collection getting CT Chest today..on coumadin INR 1.3 Today.. high LFTs monitoring and mild leukocytosis Review of Systems Constitutional Constitutional: Fatigue, Weakness Pulmonary Respiratory: Shortness of Breath, Wheezing Musculoskeletal MS Remarks Right Hip pain/ swelling. Integumentary Skin Remarks right hip bruise. Vitals/Results Intake & Output 10/07/16 10/07/16 10/08/16 15:00 23:00 07:00 Intake Total 240 ml 240 ml Output Total 400 ml 900 ml Balance -160 ml -660 ml Intake Oral 240 ml 240 ml Output Urine Total 400 ml 900 ml # Bowel Movements 0 0 Vital Signs Vital Signs Date Time Temp Pulse Resp B/P Pulse Ox O2 Delivery O2 Flow Rate FiO2 10/08/16 08:00 96.4 94 18 130/88 97 10/08/16 07:35 98 Nasal Cannula 2.00 10/08/16 04:05 98 Nasal Cannula 2.00 10/08/16 00:14 96 Nasal Cannula 2.00 10/08/16 00:00 97.2 98 16 145/85 97 10/07/16 20:25 Nasal Cannula 3.00 10/07/16 20:17 96.7 96 16 137/98 96 10/07/16 16:15 97.1 99 22 136/84 95 10/07/16 15:57 96 Nasal Cannula 2.00 10/07/16 12:08 95.8 103 20 122/87 96 CBC/BMP: 10/08/16 0600 10/08/16 0600 Lab Results Laboratory Tests Test 10/07/16 10/08/16 20:28 06:00 Prothrombin Time 14.4 SEC Prothromb Time International 1.3 RATIO Ratio White Blood Count 11.7 TH/MM3 Red Blood Count 3.64 MIL/MM3 Hemoglobin 9.4 GM/DL Hematocrit 29.0 % Mean Corpuscular Volume 79.6 FL Mean Corpuscular Hemoglobin 25.9 PG Mean Corpuscular Hemoglobin 32.5 % Concent Red Cell Distribution Width 24.7 % Platelet Count 273 TH/MM3 Mean Platelet Volume 7.0 FL Neutrophils (%) (Auto) % Lymphocytes (%) (Auto) % Monocytes (%) (Auto) % Eosinophils (%) (Auto) % Basophils (%) (Auto) % Neutrophils # (Auto) TH/MM3 Lymphocytes # (Auto) TH/MM3 Monocytes # (Auto) TH/MM3 Eosinophils # (Auto) TH/MM3 Basophils # (Auto) TH/MM3 CBC Comment AUTO DIFF Differential Total Cells 100 Counted Neutrophils % (Manual) 71 % Band Neutrophils % 7 % Lymphocytes % 7 % Monocytes % 5 % Neutrophils # (Manual) 10.3 TH/MM3 Metamyelocytes 1 % Myelocytes 8 % Promyelocytes 1 % Nucleated Red Blood Cells 3 /100 WBC Differential Comment FINAL DIFF MANUAL Platelet Estimate NORMAL Platelet Morphology Comment NORMAL Ovalocytes 1+ Sodium Level 138 MEQ/L Potassium Level 3.7 MEQ/L Chloride Level 99 MEQ/L Carbon Dioxide Level 30.8 MEQ/L Anion Gap 8 MEQ/L Blood Urea Nitrogen 13 MG/DL Creatinine 0.89 MG/DL Estimat Glomerular Filtration 90 ML/MIN Rate Random Glucose 217 MG/DL Calcium Level 8.3 MG/DL Total Bilirubin 0.2 MG/DL Aspartate Amino Transf 46 U/L (AST/SGOT) Alanine Aminotransferase 114 U/L (ALT/SGPT) Alkaline Phosphatase 148 U/L Total Protein 5.6 GM/DL Albumin 3.2 GM/DL Physical Exam General General Appearance: No Acute Distress, Comfortable Eyes Eye Exam: Pupils Equal, Pupils Reactive, Sclera White, Extraocular Movement Intact Throat Throat Exam: Oral Mucosa [place] & Moist, Oral Pharynx Normal Neck Neck Exam: Neck Supple, Trachea Midline Pulmonary Resp Exam: Crackles, Diminished Breath Sounds Resp Remarks Sever Bilateral Wheezing. Cardiology CV Exam: Regular, Normal Sinus Rhythm Gastrointestinal/Abdomen GI Exam: Soft, Non-Tender, Bowel Sounds Present, Distended Musculoskeletal MS Exam: Normal Tone Integumentary Skin Exam: Warm, Dry Extremeties Extremities Exam: No Edema Neurologic Neuro Exam: Alert, Awake, Oriented, Speech Clear, Moving All Extremities, Fountain Roller Assembler Equal, No Focal Deficits VTE Prophylaxis VTE Prophylaxis Meds: Coumadin PUD Prophylasis PUD Prophylaxis: Protonix Assessment/Plan Assessment/Plan ASSESSMENT AND PLAN: 1. This is a 51-year-old male who came to the emergency room diagnosed with shortness of breath and wheezing secondary to asthma exacerbation. The patient on Prednisone 20 mg PO Daily.and also Xopenex and Atrovent nebulization and pulmonary input noted. The patient is on oxygen. Further recommendation per pulmonary. 2. History for right hip infection with fungus. The patient is on Diflucan + Micafungin.. He has right hip swelling and pain. Right hip ultrasound noted orthopedic input noted s/p needle drainage of hematoma right hip and d/w orthopedic not getting right hip hardware removed .... ..will keep and watch per orthopedic. S/P MRI Right hip shows 12 cm hematoma/seroma. s/p needle drainage... S/P CT Pelvis show no more hematoma collection getting CT Chest today 3. Septic right hip. The patient is on Diflucan + Micafungin... Infectious disease input noted.. Will monitor. 4. History of chronic obstructive pulmonary disease. Continue home medications. 5. History of depression. Continue home medications. 6. History of anxiety. Continue with Ativan 0.5 milligrams twice a day. 7. Right hip pain. The patient on tramadol and [place] and also Dilaudid 0.5 milligrams p.o. q. 6 hours PRN pain. 8. History of hyperlipidemia. Continue on Lipitor 20 milligrams p.o. daily. 9. DVT prophylaxis. The patient is on coumadin. INR is subtherapeutic. 10. GI prophylaxis. Protonix 40 milligrams p.o. daily. The patient is also on Carafate 1 gram p.o. three times a day. 11. History of pulmonary embolism and DVT right leg. The patient is on coumadin and INR is subtherapeutic. Will monitor INR daily. 12. High blood sugar continue with ISS + Levemir 15 units subcut. HS. monitoring blood glucose. Check CBC with diff CMP in AM. We are going to manage the patient on a daily basis and make recommendations on a daily basis. Discussed Condition with: Patient Myron Woodward MD Oct 08, 2016 09:05
[2016-10-08] MEDS: ACETAMINOPHEN/HYDROcodone 325 MG/7.5 MG TAB PO PRN ×2 (10:18→17:45)
[2016-10-08] MEDS: LORazepam 0.5 MG TAB PO SCH ×2 (10:18→20:41)
[2016-10-08] MEDS: POTASSIUM CHLORIDE 10 MEQ CONTROLLED RELEASE TAB PO SCH ×2 (10:19→20:41)
[2016-10-08] MEDS: DILTIAZEM-CD 180 MG CAP ER PO SCH (10:19)
[2016-10-08] MEDS: FLUCONAZOLE 200 MG TAB PO SCH (10:19)
[2016-10-08] MEDS: BUDESONIDE-FORMOTEROL 160/4.5 MCG INHALER INH SCH ×2 (10:20→20:41)
[2016-10-08] MEDS: PANTOPRAZOLE SOD 40 MG DELAYED RELEASE TAB PO SCH (10:20)
[2016-10-08] MEDS: predniSONE 20 MG TAB PO SCH ×2 (10:20→20:41)
[2016-10-08] MEDS: SUCRALFATE 1 GM TAB PO SCH ×3 (10:20→17:45)
[2016-10-08] MEDS: PROMETHAZINE/CODEINE 6.25 MG/10 MG/5 ML CUP PO PRN (14:36)
[2016-10-08] MEDS: traMADol HCL 50 MG TAB PO PRN ×2 (14:36→23:14)
[2016-10-08] MEDS: WARFARIN SOD 2 MG TAB PO SCH (17:45)
[2016-10-08] MEDS: MICAFUNGIN INJ 150 MG in SODIUM CHLORIDE 0.9% INJ 100 ML IV SCH (17:51)
[2016-10-08] MEDS: INSULIN DETEMIR 100 UNITS/ML VIAL SQ SCH (20:40)
[2016-10-08] MEDS: MONTELUKAST SODIUM 10 MG TAB PO SCH (20:41)
[2016-10-08] MEDS: ATORVASTATIN 20 MG TAB PO SCH (20:41)
[2016-10-08 21:38] LABS: INTERNATIONAL NORMALIZED RATIO 1.5 RATIO; PROTHROMBIN TIME - PATIENT 16.5 SEC (9.8-11.6)
[2016-10-09] VITALS (8 sets, daily range): BP systolic 121–140; BP diastolic 85–95; PULSE 90–117; RESP 16–18; TEMP 96–98.1; O2SAT 97–99
[2016-10-09] MEDS: ACETAMINOPHEN/HYDROcodone 325 MG/7.5 MG TAB PO PRN ×3 (01:21→17:59)
[2016-10-09] MEDS: RESP: ALBUTEROL 2.5 MG/IPRATROPIUM 0.5 MG NEB (SCH) NEB ×5 (03:55→19:01)
[2016-10-09] MEDS: oxyCODONE HCL 20 MG CONTROLLED RELEASE TAB PO SCH ×2 (06:16→17:52)
[2016-10-09 06:50] LABS: AUTOMATED NEUTROPHIL # 8.5 TH/MM3 (1.8-7.7); BASOPHIL % 0.3 % (0.0-2.0); HEMATOCRIT 29.6 % (39.0-51.0); LYMPH % 8.3 % (9.0-44.0); LYMPHOCYTE # 0.8 TH/MM3 (1.0-4.8); MEAN CELL VOLUME 79.3 FL (80.0-100.0); MEAN CORPUSCULAR HEMOGLOBIN 25.6 PG (27.0-34.0); MEAN CORPUSCULAR HGB CONC 32.3 % (32.0-36.0); MONO % 7.1 % (0.0-8.0); NEUT % 84.3 % (16.0-70.0); PLATELET COUNT 297 TH/MM3 (150-450); RED BLOOD COUNT 3.73 MIL/MM3 (4.50-5.90); WHITE BLOOD COUNT 10.1 TH/MM3 (4.0-11.0)
[2016-10-09] MEDS: INSULIN ASPART SUPPLEMENTAL SCALE SQ SCH ×4 (07:00→21:26)
[2016-10-09 07:03] LABS: HEMO FLAGS AUTO DIFF
[2016-10-09 07:21] LABS: ALKALINE PHOSPHATASE 142 U/L (45-117); ALT (GPT) 103 U/L (12-78); ANION GAP 8 MEQ/L (5-15); AST (GOT) 28 U/L (15-37); BICARBONATE 30.6 MEQ/L (21.0-32.0); BLOOD UREA NITROGEN 11 MG/DL (7-18); CHLORIDE 97 MEQ/L (98-107); GLOMERULAR FILTRATION RATE 113 ML/MIN (>89); POTASSIUM 3.7 MEQ/L (3.5-5.1); SODIUM (NA) 136 MEQ/L (136-145); TOTAL BILIRUBIN ADULT 0.3 MG/DL (0.2-1.0)
[2016-10-09 07:50] LABS: BANDS 3 % (0-6); CORRECTED NUCLEATED RBC 1 /100 WBC (0-0); METAMYELOCYTES 2 % (0-1); POLYS (SEG NEUTROPHILS) 65 % (16-70); PROMYELOCYTES 2 % (0-0); WBC DIFF SAMPLE 100
[2016-10-09 07:52] LABS: MYELOCYTES 7 % (0-0)
[2016-10-09 07:54] LABS: KERATOCYTES OCC (NORMAL); OVALOCYTES 1+ (NORMAL); PLATELET ESTIMATE SMEAR NORMAL (NORMAL); PLATELET MORPHOLOGY NORMAL (NORMAL); SCAN/DIFF FINAL DIFF MANUAL
--- NOTE | 2016-10-09 08:30 | HHI.PR ---
Subjective History of Present Illness Patient have sever wheezing and pain Right hip pain better. ... S/P CT Pelvis show no more hematoma collection getting CT Chest today..on coumadin INR 1.5 Today.. high LFTs monitoring and mild leukocytosis Review of Systems Constitutional Constitutional: Fatigue, Weakness Pulmonary Respiratory: Shortness of Breath, Wheezing Musculoskeletal MS Remarks Right Hip pain/ swelling. Integumentary Skin Remarks right hip bruise. Vitals/Results Intake & Output 10/08/16 10/08/16 10/09/16 15:00 23:00 07:00 Intake Total 480 ml 480 ml Output Total 1000 ml Balance 480 ml -520 ml Intake Oral 480 ml 480 ml Output Urine Total 1000 ml # Voids 5 # Bowel Movements 2 0 Vital Signs Vital Signs Date Time Temp Pulse Resp B/P Pulse Ox O2 Delivery O2 Flow Rate FiO2 10/09/16 08:14 99 Nasal Cannula 2.00 10/09/16 03:55 97 Nasal Cannula 2.00 10/09/16 00:11 96.7 90 16 140/91 98 10/08/16 23:48 98 Nasal Cannula 2.00 10/08/16 20:35 Nasal Cannula 3.00 10/08/16 20:30 96 Nasal Cannula 2.00 10/08/16 19:00 96.4 101 17 133/93 99 10/08/16 16:00 96.5 113 18 134/89 99 10/08/16 12:00 95.5 90 18 139/96 98 CBC/BMP: 10/09/16 0615 10/09/16 0615 Lab Results Laboratory Tests Test 10/08/16 10/09/16 20:35 06:15 Prothrombin Time 16.5 SEC Prothromb Time International 1.5 RATIO Ratio White Blood Count 10.1 TH/MM3 Red Blood Count 3.73 MIL/MM3 Hemoglobin 9.6 GM/DL Hematocrit 29.6 % Mean Corpuscular Volume 79.3 FL Mean Corpuscular Hemoglobin 25.6 PG Mean Corpuscular Hemoglobin 32.3 % Concent Red Cell Distribution Width 25.0 % Platelet Count 297 TH/MM3 Mean Platelet Volume 7.0 FL Neutrophils (%) (Auto) 84.3 % Lymphocytes (%) (Auto) 8.3 % Monocytes (%) (Auto) 7.1 % Eosinophils (%) (Auto) 0.0 % Basophils (%) (Auto) 0.3 % Neutrophils # (Auto) 8.5 TH/MM3 Lymphocytes # (Auto) 0.8 TH/MM3 Monocytes # (Auto) 0.7 TH/MM3 Eosinophils # (Auto) 0.0 TH/MM3 Basophils # (Auto) 0.0 TH/MM3 CBC Comment AUTO DIFF Differential Total Cells 100 Counted Neutrophils % (Manual) 65 % Band Neutrophils % 3 % Lymphocytes % 16 % Monocytes % 5 % Neutrophils # (Manual) 8.0 TH/MM3 Metamyelocytes 2 % Myelocytes 7 % Promyelocytes 2 % Nucleated Red Blood Cells 1 /100 WBC Differential Comment FINAL DIFF MANUAL Platelet Estimate NORMAL Platelet Morphology Comment NORMAL Ovalocytes 1+ Keratocytes OCC Sodium Level 136 MEQ/L Potassium Level 3.7 MEQ/L Chloride Level 97 MEQ/L Carbon Dioxide Level 30.6 MEQ/L Anion Gap 8 MEQ/L Blood Urea Nitrogen 11 MG/DL Creatinine 0.73 MG/DL Estimat Glomerular Filtration 113 ML/MIN Rate Random Glucose 154 MG/DL Calcium Level 8.6 MG/DL Total Bilirubin 0.3 MG/DL Aspartate Amino Transf 28 U/L (AST/SGOT) Alanine Aminotransferase 103 U/L (ALT/SGPT) Alkaline Phosphatase 142 U/L Total Protein 5.8 GM/DL Albumin 3.3 GM/DL Physical Exam General General Appearance: No Acute Distress, Comfortable Eyes Eye Exam: Pupils Equal, Pupils Reactive, Sclera White, Extraocular Movement Intact Throat Throat Exam: Oral Mucosa [place] & Moist, Oral Pharynx Normal Neck Neck Exam: Neck Supple, Trachea Midline Pulmonary Resp Exam: Crackles, Diminished Breath Sounds Resp Remarks Sever Bilateral Wheezing. Cardiology CV Exam: Regular, Normal Sinus Rhythm Gastrointestinal/Abdomen GI Exam: Soft, Non-Tender, Bowel Sounds Present, Distended Musculoskeletal MS Exam: Normal Tone Integumentary Skin Exam: Warm, Dry Extremeties Extremities Exam: No Edema Neurologic Neuro Exam: Alert, Awake, Oriented, Speech Clear, Moving All Extremities, Sales Representative Advertising Equal, No Focal Deficits VTE Prophylaxis VTE Prophylaxis Meds: Coumadin PUD Prophylasis PUD Prophylaxis: Protonix Assessment/Plan Assessment/Plan ASSESSMENT AND PLAN: 1. This is a 51-year-old male who came to the emergency room diagnosed with shortness of breath and wheezing secondary to asthma exacerbation. The patient on Prednisone 20 mg PO Daily and also Xopenex and Atrovent nebulization and pulmonary input noted. The patient is on oxygen. Further recommendation per pulmonary. 2. History for right hip infection with fungus. The patient is on Diflucan + Micafungin.. He has right hip swelling and pain. Right hip ultrasound noted orthopedic input noted s/p needle drainage of hematoma right hip and d/w orthopedic not getting right hip hardware removed .... ..will keep and watch per orthopedic. S/P MRI Right hip shows 12 cm hematoma/seroma. s/p needle drainage... S/P CT Pelvis show no more hematoma collection 3. Septic right hip. The patient is on Diflucan + Micafungin... Infectious disease input noted.. Will monitor. 4. History of chronic obstructive pulmonary disease. Continue home medications. 5. History of depression. Continue home medications. 6. History of anxiety. Continue with Ativan 0.5 milligrams twice a day. 7. Right hip pain. The patient on tramadol and [place] and also Dilaudid 0.5 milligrams p.o. q. 6 hours PRN pain. 8. History of hyperlipidemia. Continue on Lipitor 20 milligrams p.o. daily. 9. DVT prophylaxis. The patient is on coumadin. INR is subtherapeutic. 10. GI prophylaxis. Protonix 40 milligrams p.o. daily. The patient is also on Carafate 1 gram p.o. three times a day. 11. History of pulmonary embolism and DVT right leg. The patient is on coumadin and INR is subtherapeutic. Will monitor INR daily. 12. High blood sugar continue with ISS + Levemir 15 units subcut. HS. monitoring blood glucose. Check CBC with diff CMP in AM. We are going to manage the patient on a daily basis and make recommendations on a daily basis. Discussed Condition with: Patient Myron Woodward MD Oct 09, 2016 08:30
[2016-10-09] MEDS: LORazepam 0.5 MG TAB PO SCH ×2 (08:33→21:24)
[2016-10-09] MEDS: POTASSIUM CHLORIDE 10 MEQ CONTROLLED RELEASE TAB PO SCH ×2 (08:33→21:25)
[2016-10-09] MEDS: FLUCONAZOLE 200 MG TAB PO SCH (08:33)
[2016-10-09] MEDS: PANTOPRAZOLE SOD 40 MG DELAYED RELEASE TAB PO SCH (08:33)
[2016-10-09] MEDS: DILTIAZEM-CD 180 MG CAP ER PO SCH (08:33)
[2016-10-09] MEDS: predniSONE 20 MG TAB PO SCH ×2 (08:33→21:25)
[2016-10-09] MEDS: SUCRALFATE 1 GM TAB PO SCH ×3 (08:33→17:52)
[2016-10-09] MEDS: PROMETHAZINE/CODEINE 6.25 MG/10 MG/5 ML CUP PO PRN (08:34)
[2016-10-09] MEDS: BUDESONIDE-FORMOTEROL 160/4.5 MCG INHALER INH SCH ×2 (08:34→21:00)
[2016-10-09] MEDS: RESP: ALBUTEROL 2.5 MG/IPRATROPIUM 0.5 MG NEB (PRN) NEB (10:03)
--- NOTE | 2016-10-09 10:30 | PD.ORT.PN ---
Subjective Post Op Day #: 2 months Pain Scale: hip doing ok Subjective Remarks continued hospitalization bec of breathing difficulties treated with high steroid doses Distance Walked BRP and walks in hallways in between breathing Rxs Objective Vitals Vital Signs Date Time Temp Pulse Resp B/P Pulse Ox O2 Delivery O2 Flow Rate FiO2 10/09/16 08:14 99 Nasal Cannula 2.00 10/09/16 08:00 96.0 91 18 121/85 99 10/09/16 03:55 97 Nasal Cannula 2.00 10/09/16 00:11 96.7 90 16 140/91 98 10/08/16 23:48 98 Nasal Cannula 2.00 10/08/16 20:35 Nasal Cannula 3.00 10/08/16 20:30 96 Nasal Cannula 2.00 10/08/16 19:00 96.4 101 17 133/93 99 10/08/16 16:00 96.5 113 18 134/89 99 10/08/16 12:00 95.5 90 18 139/96 98 I/O 10/08/16 10/08/16 10/08/16 10/09/16 10/09/16 10/09/16 07:00 15:00 23:00 07:00 15:00 23:00 Intake Total 240 ml 480 ml 480 ml Output Total 900 ml 1000 ml Balance -660 ml 480 ml -520 ml Intake Oral 240 ml 480 ml 480 ml Output Urine Total 900 ml 1000 ml # Voids 5 # Bowel Movements 0 2 0 Result Diagram: 10/09/16 0615 10/09/16 0615 Other Results Laboratory Tests Test 10/08/16 20:35 Prothrombin Time 16.5 SEC (9.8-11.6) Prothromb Time International 1.5 RATIO Ratio Imaging Last 24 hours Impressions Hip MRI 10/02/16 0000 Signed Impressions: Service Date/Time: Sunday, October 02, 2016 09:13 - CONCLUSION: 12 cm collection in the right hip and buttock region, likely hematoma/seroma. The lesion could certainly be drained or sampled without difficulty under CT guidance. Adin Guillermo MD Objective Remarks Hip continues to look better. No redness, scar maturing , and no pain on moving around Assessment & Plan Assessment and Plan Orthopedically stable Continued breathing difficulties DC with antifungals PO anfd IV To see me 2 weeks post discharge. Shaan Lindo MD Oct 09, 2016 10:30
[2016-10-09] MEDS: WARFARIN SOD 2 MG TAB PO SCH (17:52)
[2016-10-09] MEDS: MICAFUNGIN INJ 150 MG in SODIUM CHLORIDE 0.9% INJ 100 ML IV SCH (17:53)
[2016-10-09 18:11] LABS: INTERNATIONAL NORMALIZED RATIO 1.7 RATIO; PROTHROMBIN TIME - PATIENT 18.8 SEC (9.8-11.6)
[2016-10-09] MEDS: MONTELUKAST SODIUM 10 MG TAB PO SCH (21:25)
[2016-10-09] MEDS: INSULIN DETEMIR 100 UNITS/ML VIAL SQ SCH (21:25)
[2016-10-09] MEDS: ATORVASTATIN 20 MG TAB PO SCH (21:25)
[2016-10-10] VITALS (9 sets, daily range): BP systolic 97–137; BP diastolic 61–95; PULSE 84–107; RESP 17–20; TEMP 96.4–97.8; O2SAT 95–99
[2016-10-10] MEDS: RESP: ALBUTEROL 2.5 MG/IPRATROPIUM 0.5 MG NEB (SCH) NEB ×4 (00:37→11:36)
[2016-10-10] MEDS: oxyCODONE HCL 20 MG CONTROLLED RELEASE TAB PO SCH ×2 (06:01→18:35)
[2016-10-10] MEDS: INSULIN ASPART SUPPLEMENTAL SCALE SQ SCH ×4 (06:02→21:00)
[2016-10-10 06:48] LABS: AUTOMATED NEUTROPHIL # 10.1 TH/MM3 (1.8-7.7); BASOPHIL % 0.1 % (0.0-2.0); HEMATOCRIT 28.4 % (39.0-51.0); LYMPH % 8.9 % (9.0-44.0); MEAN CELL VOLUME 79.9 FL (80.0-100.0); MEAN CORPUSCULAR HEMOGLOBIN 25.1 PG (27.0-34.0); MEAN CORPUSCULAR HGB CONC 31.4 % (32.0-36.0); MONO % 5.9 % (0.0-8.0); NEUT % 85.1 % (16.0-70.0); PLATELET COUNT 295 TH/MM3 (150-450); RED BLOOD COUNT 3.56 MIL/MM3 (4.50-5.90); RED CELL DISTRIBUTION WIDTH 24.7 % (11.6-17.2); WHITE BLOOD COUNT 11.8 TH/MM3 (4.0-11.0)
[2016-10-10 06:55] LABS: ALKALINE PHOSPHATASE 150 U/L (45-117); ALT (GPT) 105 U/L (12-78); ANION GAP 9 MEQ/L (5-15); AST (GOT) 33 U/L (15-37); BICARBONATE 29.2 MEQ/L (21.0-32.0); BLOOD UREA NITROGEN 10 MG/DL (7-18); CHLORIDE 99 MEQ/L (98-107); GLOMERULAR FILTRATION RATE 105 ML/MIN (>89); POTASSIUM 3.8 MEQ/L (3.5-5.1); SODIUM (NA) 137 MEQ/L (136-145); TOTAL BILIRUBIN ADULT 0.3 MG/DL (0.2-1.0)
[2016-10-10 06:58] LABS: HEMO FLAGS AUTO DIFF
--- NOTE | 2016-10-10 06:58 | HHI.PR ---
Subjective History of Present Illness Patient have sever wheezing Right hip pain better. .on coumadin INR 1.7 Today.. high LFTs monitoring and mild leukocytosis Review of Systems Constitutional Constitutional: Fatigue, Weakness Pulmonary Respiratory: Shortness of Breath, Wheezing Musculoskeletal MS Remarks Right Hip pain/ swelling. Integumentary Skin Remarks right hip bruise. Vitals/Results Intake & Output 10/09/16 10/09/16 10/10/16 15:00 23:00 07:00 Intake Total 1200 ml 1900 ml 960 ml Output Total 2100 ml 1200 ml 2200 ml Balance -900 ml 700 ml -1240 ml Intake Oral 1200 ml 1900 ml 960 ml Output Urine Total 2100 ml 1200 ml 2200 ml # Bowel Movements 0 2 0 Vital Signs Vital Signs Date Time Temp Pulse Resp B/P Pulse Ox O2 Delivery O2 Flow Rate FiO2 10/10/16 00:38 97 Nasal Cannula 3.00 10/10/16 00:10 97.8 95 17 137/92 99 10/09/16 21:26 Nasal Cannula 2.00 10/09/16 19:34 97.0 106 17 130/86 97 10/09/16 15:46 97 Nasal Cannula 2.00 10/09/16 15:43 98.1 117 17 140/90 97 10/09/16 11:55 96.4 92 17 134/95 98 10/09/16 08:14 99 Nasal Cannula 2.00 10/09/16 08:00 96.0 91 18 121/85 99 CBC/BMP: 10/09/16 0615 10/10/16 0555 Lab Results Laboratory Tests Test 10/09/16 10/10/16 17:30 05:55 Prothrombin Time 18.8 SEC Prothromb Time International 1.7 RATIO Ratio Sodium Level 137 MEQ/L Potassium Level 3.8 MEQ/L Chloride Level 99 MEQ/L Carbon Dioxide Level 29.2 MEQ/L Anion Gap 9 MEQ/L Blood Urea Nitrogen 10 MG/DL Creatinine 0.78 MG/DL Estimat Glomerular Filtration 105 ML/MIN Rate Random Glucose 229 MG/DL Calcium Level 8.4 MG/DL Total Bilirubin 0.3 MG/DL Aspartate Amino Transf 33 U/L (AST/SGOT) Alanine Aminotransferase 105 U/L (ALT/SGPT) Alkaline Phosphatase 150 U/L Total Protein 5.7 GM/DL Albumin 3.4 GM/DL Physical Exam General General Appearance: No Acute Distress, Comfortable Eyes Eye Exam: Pupils Equal, Pupils Reactive, Sclera White, Extraocular Movement Intact Throat Throat Exam: Oral Mucosa [place] & Moist, Oral Pharynx Normal Neck Neck Exam: Neck Supple, Trachea Midline Pulmonary Resp Exam: Crackles, Diminished Breath Sounds Resp Remarks Sever Bilateral Wheezing. Cardiology CV Exam: Regular, Normal Sinus Rhythm Gastrointestinal/Abdomen GI Exam: Soft, Non-Tender, Bowel Sounds Present, Distended Musculoskeletal MS Exam: Normal Tone Integumentary Skin Exam: Warm, Dry Extremeties Extremities Exam: No Edema Neurologic Neuro Exam: Alert, Awake, Oriented, Speech Clear, Moving All Extremities, Night Order Selector Equal, No Focal Deficits VTE Prophylaxis VTE Prophylaxis Meds: Coumadin PUD Prophylasis PUD Prophylaxis: Protonix Assessment/Plan Assessment/Plan ASSESSMENT AND PLAN: 1. This is a 51-year-old male who came to the emergency room diagnosed with shortness of breath and wheezing secondary to asthma exacerbation. The patient on Prednisone 20 mg PO Daily and also Xopenex and Atrovent nebulization and pulmonary input noted. The patient is on oxygen. Further recommendation per pulmonary. 2. History for right hip infection with fungus. The patient is on Diflucan + Micafungin.. He has right hip swelling and pain. Right hip ultrasound noted orthopedic input noted s/p needle drainage of hematoma right hip and d/w orthopedic not getting right hip hardware removed .... ..will keep and watch per orthopedic. S/P MRI Right hip shows 12 cm hematoma/seroma. s/p needle drainage... S/P CT Pelvis show no more hematoma collection 3. Septic right hip. The patient is on Diflucan + Micafungin... Infectious disease input noted.. Will monitor. 4. History of chronic obstructive pulmonary disease. Continue home medications. 5. History of depression. Continue home medications. 6. History of anxiety. Continue with Ativan 0.5 milligrams twice a day. 7. Right hip pain. The patient on tramadol and [place] and also Dilaudid 0.5 milligrams p.o. q. 6 hours PRN pain. 8. History of hyperlipidemia. Continue on Lipitor 20 milligrams p.o. daily. 9. DVT prophylaxis. The patient is on coumadin. INR is subtherapeutic. 10. GI prophylaxis. Protonix 40 milligrams p.o. daily. The patient is also on Carafate 1 gram p.o. three times a day. 11. History of pulmonary embolism and DVT right leg. The patient is on coumadin and INR is subtherapeutic. Will monitor INR daily. 12. High blood sugar continue with ISS + Levemir 15 units subcut. HS. monitoring blood glucose. Check CBC with diff CMP in AM. We are going to manage the patient on a daily basis and make recommendations on a daily basis. Discussed Condition with: Patient Myron Woodward MD Oct 10, 2016 06:58
[2016-10-10 08:15] LABS: BANDS 1 % (0-6); BASOPHILS 1 % (0-2); METAMYELOCYTES 2 % (0-1); MYELOCYTES 7 % (0-0); NEUTROPHIL # MANUAL DIFF 10.1 TH/MM3 (1.8-7.7); POLYS (SEG NEUTROPHILS) 74 % (16-70); PROMYELOCYTES 2 % (0-0); WBC DIFF SAMPLE 100
[2016-10-10 08:17] LABS: POLYCHROMASIA 2.2 % (0.0-1.9)
[2016-10-10 08:20] LABS: PLATELET ESTIMATE SMEAR NORMAL (NORMAL); PLATELET MORPHOLOGY NORMAL (NORMAL); SCAN/DIFF FINAL DIFF MANUAL
[2016-10-10] MEDS: LORazepam 0.5 MG TAB PO SCH ×2 (08:42→21:52)
[2016-10-10] MEDS: PANTOPRAZOLE SOD 40 MG DELAYED RELEASE TAB PO SCH (08:42)
[2016-10-10] MEDS: FLUCONAZOLE 200 MG TAB PO SCH (08:42)
[2016-10-10] MEDS: SUCRALFATE 1 GM TAB PO SCH ×3 (08:42→18:35)
[2016-10-10] MEDS: POTASSIUM CHLORIDE 10 MEQ CONTROLLED RELEASE TAB PO SCH ×2 (08:42→21:52)
[2016-10-10] MEDS: predniSONE 20 MG TAB PO SCH ×2 (08:43→21:52)
[2016-10-10] MEDS: DILTIAZEM-CD 180 MG CAP ER PO SCH (08:43)
[2016-10-10] MEDS: ACETAMINOPHEN/HYDROcodone 325 MG/7.5 MG TAB PO PRN ×2 (08:43→16:24)
[2016-10-10] MEDS: BUDESONIDE-FORMOTEROL 160/4.5 MCG INHALER INH SCH ×2 (08:45→21:53)
[2016-10-10] MEDS: PROMETHAZINE/CODEINE 6.25 MG/10 MG/5 ML CUP PO PRN (12:35)
[2016-10-10] MEDS: traMADol HCL 50 MG TAB PO PRN (14:17)
[2016-10-10] MEDS: WARFARIN SOD 2 MG TAB PO SCH (16:24)
[2016-10-10] MEDS: MICAFUNGIN INJ 150 MG in SODIUM CHLORIDE 0.9% INJ 100 ML IV SCH (16:24)
[2016-10-10] MEDS: INSULIN DETEMIR 100 UNITS/ML VIAL SQ SCH (21:50)
[2016-10-10] MEDS: MONTELUKAST SODIUM 10 MG TAB PO SCH (21:52)
[2016-10-10] MEDS: ATORVASTATIN 20 MG TAB PO SCH (21:53)
[2016-10-10 22:42] LABS: PROTHROMBIN TIME - PATIENT 22.3 SEC (9.8-11.6)
[2016-10-11] VITALS (8 sets, daily range): BP systolic 121–141; BP diastolic 82–91; PULSE 83–108; RESP 16–18; TEMP 96–97.5; O2SAT 97–98
[2016-10-11] MEDS: RESP: ALBUTEROL 2.5 MG/IPRATROPIUM 0.5 MG NEB (PRN) NEB ×5 (00:24→20:49)
[2016-10-11] MEDS: ACETAMINOPHEN/HYDROcodone 325 MG/7.5 MG TAB PO PRN ×3 (00:30→17:55)
[2016-10-11] MEDS: oxyCODONE HCL 20 MG CONTROLLED RELEASE TAB PO SCH ×2 (05:43→17:36)
[2016-10-11] MEDS: INSULIN ASPART SUPPLEMENTAL SCALE SQ SCH ×4 (05:58→21:00)
[2016-10-11 06:30] LABS: ALKALINE PHOSPHATASE 155 U/L (45-117); ALT (GPT) 115 U/L (12-78); ANION GAP 8 MEQ/L (5-15); AST (GOT) 35 U/L (15-37); BICARBONATE 28.1 MEQ/L (21.0-32.0); BLOOD UREA NITROGEN 10 MG/DL (7-18); CHLORIDE 102 MEQ/L (98-107); GLOMERULAR FILTRATION RATE 118 ML/MIN (>89); POTASSIUM 3.7 MEQ/L (3.5-5.1); SODIUM (NA) 138 MEQ/L (136-145); TOTAL BILIRUBIN ADULT 0.3 MG/DL (0.2-1.0)
[2016-10-11 07:40] LABS: AUTOMATED NEUTROPHIL # 9.1 TH/MM3 (1.8-7.7); BASOPHIL # 0.1 TH/MM3 (0-0.2); BASOPHIL % 0.6 % (0.0-2.0); EOSINOPHIL % 0.2 % (0.0-4.0); HEMATOCRIT 30.1 % (39.0-51.0); LYMPH % 8.7 % (9.0-44.0); LYMPHOCYTE # 0.9 TH/MM3 (1.0-4.8); MEAN CELL VOLUME 81.1 FL (80.0-100.0); MEAN CORPUSCULAR HEMOGLOBIN 25.9 PG (27.0-34.0); MEAN CORPUSCULAR HGB CONC 31.9 % (32.0-36.0); MONO % 5.8 % (0.0-8.0); NEUT % 84.7 % (16.0-70.0); PLATELET COUNT 306 TH/MM3 (150-450); RED BLOOD COUNT 3.71 MIL/MM3 (4.50-5.90); RED CELL DISTRIBUTION WIDTH 24.6 % (11.6-17.2); WHITE BLOOD COUNT 10.8 TH/MM3 (4.0-11.0)
[2016-10-11 07:42] LABS: HEMO FLAGS AUTO DIFF
--- NOTE | 2016-10-11 08:19 | HHI.PR ---
Subjective History of Present Illness Patient have sever wheezing not able to walk because of SOB/ Wheezing.. Right hip pain better. .on coumadin INR 2.0 Today.. high LFTs monitoring Review of Systems Constitutional Constitutional: Fatigue, Weakness Pulmonary Respiratory: Shortness of Breath, Wheezing Musculoskeletal MS Remarks Right Hip pain/ swelling. Integumentary Skin Remarks right hip bruise. Vitals/Results Intake & Output 10/10/16 10/10/16 10/11/16 15:00 23:00 07:00 Intake Total 1480 ml 1200 ml Output Total 4750 ml 2000 ml Balance -3270 ml -800 ml Intake Oral 1480 ml 1200 ml Output Urine Total 4750 ml 2000 ml # Bowel Movements 5 0 Vital Signs Vital Signs Date Time Temp Pulse Resp B/P Pulse Ox O2 Delivery O2 Flow Rate FiO2 10/11/16 04:28 96.5 85 18 134/87 98 10/11/16 00:25 98 Nasal Cannula 3.00 10/10/16 23:25 96.4 84 18 135/89 97 10/10/16 21:33 97 Nasal Cannula 3.00 10/10/16 20:35 96.9 107 20 132/89 99 10/10/16 16:00 97.3 104 18 124/79 97 10/10/16 12:00 96.8 103 18 97/61 95 CBC/BMP: 10/11/16 0537 10/11/16 0537 Lab Results Laboratory Tests Test 10/10/16 10/11/16 22:00 05:37 Prothrombin Time 22.3 SEC Prothromb Time International 2.0 RATIO Ratio White Blood Count 10.8 TH/MM3 Red Blood Count 3.71 MIL/MM3 Hemoglobin 9.6 GM/DL Hematocrit 30.1 % Mean Corpuscular Volume 81.1 FL Mean Corpuscular Hemoglobin 25.9 PG Mean Corpuscular Hemoglobin 31.9 % Concent Red Cell Distribution Width 24.6 % Platelet Count 306 TH/MM3 Mean Platelet Volume 7.1 FL Neutrophils (%) (Auto) 84.7 % Lymphocytes (%) (Auto) 8.7 % Monocytes (%) (Auto) 5.8 % Eosinophils (%) (Auto) 0.2 % Basophils (%) (Auto) 0.6 % Neutrophils # (Auto) 9.1 TH/MM3 Lymphocytes # (Auto) 0.9 TH/MM3 Monocytes # (Auto) 0.6 TH/MM3 Eosinophils # (Auto) 0.0 TH/MM3 Basophils # (Auto) 0.1 TH/MM3 CBC Comment AUTO DIFF Sodium Level 138 MEQ/L Potassium Level 3.7 MEQ/L Chloride Level 102 MEQ/L Carbon Dioxide Level 28.1 MEQ/L Anion Gap 8 MEQ/L Blood Urea Nitrogen 10 MG/DL Creatinine 0.70 MG/DL Estimat Glomerular Filtration 118 ML/MIN Rate Random Glucose 189 MG/DL Calcium Level 8.7 MG/DL Total Bilirubin 0.3 MG/DL Aspartate Amino Transf 35 U/L (AST/SGOT) Alanine Aminotransferase 115 U/L (ALT/SGPT) Alkaline Phosphatase 155 U/L Total Protein 6.0 GM/DL Albumin 3.4 GM/DL Physical Exam General General Appearance: No Acute Distress, Comfortable Eyes Eye Exam: Pupils Equal, Pupils Reactive, Sclera White, Extraocular Movement Intact Throat Throat Exam: Oral Mucosa [place] & Moist, Oral Pharynx Normal Neck Neck Exam: Neck Supple, Trachea Midline Pulmonary Resp Exam: Crackles, Diminished Breath Sounds Resp Remarks Sever Bilateral Wheezing. Cardiology CV Exam: Regular, Normal Sinus Rhythm Gastrointestinal/Abdomen GI Exam: Soft, Non-Tender, Bowel Sounds Present, Distended Musculoskeletal MS Exam: Normal Tone Integumentary Skin Exam: Warm, Dry Extremeties Extremities Exam: No Edema Neurologic Neuro Exam: Alert, Awake, Oriented, Speech Clear, Moving All Extremities, Tape Machine Tailer Equal, No Focal Deficits VTE Prophylaxis VTE Prophylaxis Meds: Coumadin PUD Prophylasis PUD Prophylaxis: Protonix Assessment/Plan Assessment/Plan ASSESSMENT AND PLAN: 1. This is a 51-year-old male who came to the emergency room diagnosed with shortness of breath and wheezing secondary to asthma exacerbation. The patient on Prednisone 20 mg PO Daily and also Xopenex and Atrovent nebulization and pulmonary input noted. The patient is on oxygen. Further recommendation per pulmonary. 2. History for right hip infection with fungus. The patient is on Diflucan + Micafungin.. He has right hip swelling and pain. Right hip ultrasound noted orthopedic input noted s/p needle drainage of hematoma right hip and d/w orthopedic not getting right hip hardware removed .... ..will keep and watch per orthopedic. S/P MRI Right hip shows 12 cm hematoma/seroma. s/p needle drainage... S/P CT Pelvis show no more hematoma collection 3. Septic right hip. The patient is on Diflucan + Micafungin... Infectious disease input noted.. Will monitor. 4. History of chronic obstructive pulmonary disease. Continue home medications. 5. History of depression. Continue home medications. 6. History of anxiety. Continue with Ativan 0.5 milligrams twice a day. 7. Right hip pain. The patient on tramadol and [place] and also Dilaudid 0.5 milligrams p.o. q. 6 hours PRN pain. 8. History of hyperlipidemia. Continue on Lipitor 20 milligrams p.o. daily. 9. DVT prophylaxis. The patient is on coumadin. INR is therapeutic. 10. GI prophylaxis. Protonix 40 milligrams p.o. daily. The patient is also on Carafate 1 gram p.o. three times a day. 11. History of pulmonary embolism and DVT right leg. The patient is on coumadin and INR is subtherapeutic. Will monitor INR daily. 12. High blood sugar continue with ISS + Levemir 15 units subcut. HS. monitoring blood glucose. Check CBC with diff CMP in AM. We are going to manage the patient on a daily basis and make recommendations on a daily basis. Discussed Condition with: Patient Myron Woodward MD Oct 11, 2016 08:19
[2016-10-11] MEDS: SUCRALFATE 1 GM TAB PO SCH ×3 (09:12→17:37)
[2016-10-11] MEDS: FLUCONAZOLE 200 MG TAB PO SCH (09:13)
[2016-10-11] MEDS: predniSONE 20 MG TAB PO SCH ×2 (09:13→23:16)
[2016-10-11] MEDS: LORazepam 0.5 MG TAB PO SCH ×2 (09:13→23:16)
[2016-10-11] MEDS: PANTOPRAZOLE SOD 40 MG DELAYED RELEASE TAB PO SCH (09:13)
[2016-10-11] MEDS: DILTIAZEM-CD 180 MG CAP ER PO SCH (09:14)
[2016-10-11] MEDS: POTASSIUM CHLORIDE 10 MEQ CONTROLLED RELEASE TAB PO SCH ×2 (09:14→23:16)
[2016-10-11] MEDS: BUDESONIDE-FORMOTEROL 160/4.5 MCG INHALER INH SCH ×2 (09:15→23:17)
[2016-10-11 09:25] LABS: BANDS 7 % (0-6); CORRECTED NUCLEATED RBC 3 /100 WBC (0-0); METAMYELOCYTES 3 % (0-1); MYELOCYTES 6 % (0-0); NEUTROPHIL # MANUAL DIFF 9.6 TH/MM3 (1.8-7.7); POLYS (SEG NEUTROPHILS) 72 % (16-70); PROMYELOCYTES 1 % (0-0); WBC DIFF SAMPLE 100
[2016-10-11 09:26] LABS: KERATOCYTES OCC (NORMAL)
[2016-10-11 09:28] LABS: OVALOCYTES 1+ (NORMAL)
[2016-10-11 09:29] LABS: PLATELET MORPHOLOGY NORMAL (NORMAL); SCAN/DIFF FINAL DIFF MANUAL
[2016-10-11 09:30] LABS: PLATELET ESTIMATE SMEAR NORMAL (NORMAL)
[2016-10-11] MEDS: MICAFUNGIN INJ 150 MG in SODIUM CHLORIDE 0.9% INJ 100 ML IV SCH (16:11)
[2016-10-11 17:45] LABS: INTERNATIONAL NORMALIZED RATIO 2.2 RATIO; PROTHROMBIN TIME - PATIENT 24.9 SEC (9.8-11.6)
[2016-10-11] MEDS: WARFARIN SOD 2 MG TAB PO SCH (17:56)
[2016-10-11] MEDS: INSULIN DETEMIR 100 UNITS/ML VIAL SQ SCH (21:00)
[2016-10-11] MEDS: traMADol HCL 50 MG TAB PO PRN (23:15)
[2016-10-11] MEDS: ATORVASTATIN 20 MG TAB PO SCH (23:16)
[2016-10-11] MEDS: MONTELUKAST SODIUM 10 MG TAB PO SCH (23:17)
[2016-10-12] VITALS (10 sets, daily range): BP systolic 124–159; BP diastolic 79–95; PULSE 96–102; RESP 16–20; TEMP 95.9–97.2; O2SAT 95–99
[2016-10-12] MEDS: RESP: ALBUTEROL 2.5 MG/IPRATROPIUM 0.5 MG NEB (PRN) NEB ×3 (00:12→10:02)
[2016-10-12] MEDS: oxyCODONE HCL 20 MG CONTROLLED RELEASE TAB PO SCH ×2 (06:00→17:29)
[2016-10-12] MEDS: INSULIN ASPART SUPPLEMENTAL SCALE SQ SCH ×4 (07:00→22:06)
[2016-10-12 08:23] LABS: AUTOMATED NEUTROPHIL # 8.8 TH/MM3 (1.8-7.7); BASOPHIL % 0.4 % (0.0-2.0); EOSINOPHIL % 0.1 % (0.0-4.0); HEMATOCRIT 29.8 % (39.0-51.0); LYMPHOCYTE # 0.6 TH/MM3 (1.0-4.8); MEAN CELL VOLUME 79.8 FL (80.0-100.0); MEAN CORPUSCULAR HEMOGLOBIN 25.4 PG (27.0-34.0); MEAN CORPUSCULAR HGB CONC 31.9 % (32.0-36.0); MONO % 5.1 % (0.0-8.0); NEUT % 88.4 % (16.0-70.0); PLATELET COUNT 329 TH/MM3 (150-450); RED BLOOD COUNT 3.74 MIL/MM3 (4.50-5.90); RED CELL DISTRIBUTION WIDTH 24.2 % (11.6-17.2); WHITE BLOOD COUNT 9.9 TH/MM3 (4.0-11.0)
[2016-10-12 08:28] LABS: HEMO FLAGS AUTO DIFF
[2016-10-12 09:19] LABS: ALKALINE PHOSPHATASE 160 U/L (45-117); ALT (GPT) 121 U/L (12-78); ANION GAP 8 MEQ/L (5-15); AST (GOT) 44 U/L (15-37); BICARBONATE 28.2 MEQ/L (21.0-32.0); BLOOD UREA NITROGEN 10 MG/DL (7-18); CHLORIDE 99 MEQ/L (98-107); GLOMERULAR FILTRATION RATE 118 ML/MIN (>89); POTASSIUM 3.9 MEQ/L (3.5-5.1); SODIUM (NA) 135 MEQ/L (136-145); TOTAL BILIRUBIN ADULT 0.3 MG/DL (0.2-1.0)
[2016-10-12] MEDS: PROMETHAZINE/CODEINE 6.25 MG/10 MG/5 ML CUP PO PRN (09:43)
[2016-10-12] MEDS: DILTIAZEM-CD 180 MG CAP ER PO SCH (09:44)
[2016-10-12] MEDS: ACETAMINOPHEN/HYDROcodone 325 MG/7.5 MG TAB PO PRN ×2 (09:44→17:30)
[2016-10-12] MEDS: SUCRALFATE 1 GM TAB PO SCH ×3 (09:44→17:29)
[2016-10-12] MEDS: predniSONE 20 MG TAB PO SCH ×2 (09:44→22:02)
[2016-10-12] MEDS: FLUCONAZOLE 200 MG TAB PO SCH (09:44)
[2016-10-12] MEDS: LORazepam 0.5 MG TAB PO SCH ×2 (09:44→22:02)
[2016-10-12] MEDS: PANTOPRAZOLE SOD 40 MG DELAYED RELEASE TAB PO SCH (09:44)
[2016-10-12] MEDS: POTASSIUM CHLORIDE 10 MEQ CONTROLLED RELEASE TAB PO SCH ×2 (09:44→22:02)
--- NOTE | 2016-10-12 09:44 | HHI.PR ---
Subjective History of Present Illness Patient have sever wheezing not able to walk because of SOB/ Wheezing.. Right hip pain better. .on coumadin INR 2.2 Today.. high LFTs monitoring DC Plan soon when SOB/ Wheezing better. Review of Systems Constitutional Constitutional: Fatigue, Weakness Pulmonary Respiratory: Shortness of Breath, Wheezing Musculoskeletal MS Remarks Right Hip pain/ swelling. Integumentary Skin Remarks right hip bruise. Vitals/Results Intake & Output 10/11/16 10/11/16 10/12/16 15:00 23:00 07:00 Intake Total 1440 ml 800 ml Output Total 1375 ml 1800 ml Balance 65 ml -1000 ml Intake Oral 1440 ml 800 ml Output Urine Total 1375 ml 1800 ml # Voids 3 # Bowel Movements 0 0 Vital Signs Vital Signs Date Time Temp Pulse Resp B/P Pulse Ox O2 Delivery O2 Flow Rate FiO2 10/12/16 04:00 96.5 100 20 141/88 99 10/12/16 00:29 96.1 96 18 159/95 95 10/11/16 20:51 98 Nasal Cannula 2.00 10/11/16 20:00 96.8 90 16 128/90 98 10/11/16 16:00 96.0 102 18 121/91 97 10/11/16 12:00 97.5 108 18 141/90 98 CBC/BMP: 10/12/16 0800 10/12/16 0800 Lab Results Laboratory Tests Test 10/11/16 10/12/16 17:15 08:00 Prothrombin Time 24.9 SEC Prothromb Time International 2.2 RATIO Ratio White Blood Count 9.9 TH/MM3 Red Blood Count 3.74 MIL/MM3 Hemoglobin 9.5 GM/DL Hematocrit 29.8 % Mean Corpuscular Volume 79.8 FL Mean Corpuscular Hemoglobin 25.4 PG Mean Corpuscular Hemoglobin 31.9 % Concent Red Cell Distribution Width 24.2 % Platelet Count 329 TH/MM3 Mean Platelet Volume 7.0 FL Neutrophils (%) (Auto) 88.4 % Lymphocytes (%) (Auto) 6.0 % Monocytes (%) (Auto) 5.1 % Eosinophils (%) (Auto) 0.1 % Basophils (%) (Auto) 0.4 % Neutrophils # (Auto) 8.8 TH/MM3 Lymphocytes # (Auto) 0.6 TH/MM3 Monocytes # (Auto) 0.5 TH/MM3 Eosinophils # (Auto) 0.0 TH/MM3 Basophils # (Auto) 0.0 TH/MM3 CBC Comment AUTO DIFF Sodium Level 135 MEQ/L Potassium Level 3.9 MEQ/L Chloride Level 99 MEQ/L Carbon Dioxide Level 28.2 MEQ/L Anion Gap 8 MEQ/L Blood Urea Nitrogen 10 MG/DL Creatinine 0.70 MG/DL Estimat Glomerular Filtration 118 ML/MIN Rate Random Glucose 223 MG/DL Calcium Level 8.6 MG/DL Total Bilirubin 0.3 MG/DL Aspartate Amino Transf 44 U/L (AST/SGOT) Alanine Aminotransferase 121 U/L (ALT/SGPT) Alkaline Phosphatase 160 U/L Total Protein 6.1 GM/DL Albumin 3.5 GM/DL Physical Exam General General Appearance: No Acute Distress, Comfortable Eyes Eye Exam: Pupils Equal, Pupils Reactive, Sclera White, Extraocular Movement Intact Throat Throat Exam: Oral Mucosa [place] & Moist, Oral Pharynx Normal Neck Neck Exam: Neck Supple, Trachea Midline Pulmonary Resp Exam: Crackles, Diminished Breath Sounds Resp Remarks Sever Bilateral Wheezing. Cardiology CV Exam: Regular, Normal Sinus Rhythm Gastrointestinal/Abdomen GI Exam: Soft, Non-Tender, Bowel Sounds Present, Distended Musculoskeletal MS Exam: Normal Tone Integumentary Skin Exam: Warm, Dry Extremeties Extremities Exam: No Edema Neurologic Neuro Exam: Alert, Awake, Oriented, Speech Clear, Moving All Extremities, Sharepoint Net Developer Equal, No Focal Deficits VTE Prophylaxis VTE Prophylaxis Meds: Coumadin PUD Prophylasis PUD Prophylaxis: Protonix Assessment/Plan Assessment/Plan ASSESSMENT AND PLAN: 1. This is a 51-year-old male who came to the emergency room diagnosed with shortness of breath and wheezing secondary to asthma exacerbation. The patient on Prednisone 20 mg PO Daily and also Xopenex and Atrovent nebulization and pulmonary input noted. The patient is on oxygen. Further recommendation per pulmonary. 2. History for right hip infection with fungus. The patient is on Diflucan + Micafungin.. He has right hip swelling and pain. Right hip ultrasound noted orthopedic input noted s/p needle drainage of hematoma right hip and d/w orthopedic not getting right hip hardware removed. will keep and watch per orthopedic. S/P MRI Right hip shows 12 cm hematoma/seroma. s/p needle drainage... S/P CT Pelvis show no more hematoma collection 3. Septic right hip. The patient is on Diflucan + Micafungin... Infectious disease input noted.. Will monitor. 4. History of chronic obstructive pulmonary disease. Continue home medications. 5. History of depression. Continue home medications. 6. History of anxiety. Continue with Ativan 0.5 milligrams twice a day. 7. Right hip pain. The patient on tramadol and [place] and also Dilaudid 0.5 milligrams p.o. q. 6 hours PRN pain. 8. History of hyperlipidemia. Continue on Lipitor 20 milligrams p.o. daily. 9. DVT prophylaxis. The patient is on coumadin. INR is therapeutic. 2.2 10. GI prophylaxis. Protonix 40 milligrams p.o. daily. The patient is also on Carafate 1 gram p.o. three times a day. 11. History of pulmonary embolism and DVT right leg. The patient is on coumadin and INR is therapeutic. Will monitor INR daily. 12. High blood sugar continue with ISS + Levemir 15 units subcut. HS. monitoring blood glucose. Check CBC with diff CMP in AM. We are going to manage the patient on a daily basis and make recommendations on a daily basis. Discussed Condition with: Patient Myron Woodward MD Oct 12, 2016 09:44
[2016-10-12] MEDS: BUDESONIDE-FORMOTEROL 160/4.5 MCG INHALER INH SCH ×2 (09:46→22:02)
[2016-10-12 12:43] LABS: BANDS 14 % (0-6); MYELOCYTES 7 % (0-0); NEUTROPHIL # MANUAL DIFF 7.7 TH/MM3 (1.8-7.7); OVALOCYTES 1+ (NORMAL); POLYS (SEG NEUTROPHILS) 57 % (16-70); WBC DIFF SAMPLE 100
[2016-10-12 12:44] LABS: PLATELET ESTIMATE SMEAR NORMAL (NORMAL); PLATELET MORPHOLOGY NORMAL (NORMAL); POLYCHROMASIA 2.6 % (0.0-1.9); SCAN/DIFF FINAL DIFF MANUAL
[2016-10-12] MEDS: RESP: ALBUTEROL 2.5 MG/IPRATROPIUM 0.5 MG NEB (SCH) NEB ×4 (13:16→23:39)
[2016-10-12] MEDS: traMADol HCL 50 MG TAB PO PRN ×2 (14:14→22:01)
[2016-10-12] MEDS: WARFARIN SOD 2 MG TAB PO SCH (17:29)
[2016-10-12] MEDS: MICAFUNGIN INJ 150 MG in SODIUM CHLORIDE 0.9% INJ 100 ML IV SCH (17:30)
[2016-10-12 18:21] LABS: INTERNATIONAL NORMALIZED RATIO 2.5 RATIO; PROTHROMBIN TIME - PATIENT 28.8 SEC (9.8-11.6)
--- NOTE | 2016-10-12 18:24 | HHI.PR ---
Subjective Remarks 51 YOWM with Br asthma, PE, Hip infection Breathing better no Fever Up in chair Objective Vital Signs Vital Signs Date Time Temp Pulse Resp B/P Pulse Ox O2 Delivery O2 Flow Rate FiO2 10/12/16 16:38 98 Nasal Cannula 2.00 10/12/16 16:14 96.7 101 18 124/79 99 10/12/16 12:00 97.2 100 16 141/95 96 10/12/16 10:05 97 Nasal Cannula 2.00 10/12/16 07:30 95.9 102 17 139/87 96 10/12/16 04:00 96.5 100 20 141/88 99 10/12/16 00:29 96.1 96 18 159/95 95 10/11/16 20:51 98 Nasal Cannula 2.00 10/11/16 20:00 96.8 90 16 128/90 98 I/O 10/11/16 10/11/16 10/11/16 10/12/16 10/12/16 10/12/16 06:59 14:59 22:59 06:59 14:59 22:59 Intake Total 1200 ml 1440 ml 800 ml 1200 ml Output Total 2000 ml 1375 ml 1800 ml 1450 ml Balance -800 ml 65 ml -1000 ml -250 ml Intake Oral 1200 ml 1440 ml 800 ml 1200 ml Output Urine Total 2000 ml 1375 ml 1800 ml 1450 ml # Voids 3 # Bowel Movements 0 0 0 2 Result Diagram: 10/12/16 0800 10/12/16 0800 Objective Remarks GENERAL: WBWN WM, mild sob SKIN: Warm and dry. HEAD: Normocephalic. EYES: No scleral icterus. No injection or drainage. NECK: Supple, trachea midline. No JVD or lymphadenopathy. CARDIOVASCULAR: Regular rate and rhythm without murmurs, gallops, or rubs. RESPIRATORY: Breath sounds equal bilaterally. No accessory muscle use. GASTROINTESTINAL: Abdomen soft, non-tender, nondistended. Exp rhonchi MUSCULOSKELETAL: No cyanosis, or edema. BACK: Nontender without obvious deformity. No CVA tenderness. A/P Assessment and Plan Bronchial asthma COPD exac Bronchitis PE PLAN: Aerosol nebs PO Prednisone Cont Abx Supplement 02 DW pt at BS Alvaro Bowen MD Oct 12, 2016 18:24
[2016-10-12] MEDS: INSULIN DETEMIR 100 UNITS/ML VIAL SQ SCH (22:02)
[2016-10-12] MEDS: MONTELUKAST SODIUM 10 MG TAB PO SCH (22:02)
[2016-10-12] MEDS: ATORVASTATIN 20 MG TAB PO SCH (22:02)
[2016-10-13] VITALS (7 sets, daily range): BP systolic 129–141; BP diastolic 82–92; PULSE 86–107; RESP 18–19; TEMP 95.5–97.2; O2SAT 97–98
[2016-10-13] MEDS: RESP: ALBUTEROL 2.5 MG/IPRATROPIUM 0.5 MG NEB (SCH) NEB ×5 (03:44→19:59)
[2016-10-13] MEDS: oxyCODONE HCL 20 MG CONTROLLED RELEASE TAB PO SCH ×2 (06:12→17:48)
[2016-10-13] MEDS: INSULIN ASPART SUPPLEMENTAL SCALE SQ SCH ×4 (07:11→21:20)
[2016-10-13] MEDS: PROMETHAZINE/CODEINE 6.25 MG/10 MG/5 ML CUP PO PRN (08:48)
[2016-10-13] MEDS: SUCRALFATE 1 GM TAB PO SCH ×3 (08:49→17:48)
[2016-10-13] MEDS: DILTIAZEM-CD 180 MG CAP ER PO SCH (08:49)
[2016-10-13] MEDS: ACETAMINOPHEN/HYDROcodone 325 MG/7.5 MG TAB PO PRN ×2 (08:49→17:48)
[2016-10-13] MEDS: POTASSIUM CHLORIDE 10 MEQ CONTROLLED RELEASE TAB PO SCH ×2 (08:49→21:21)
[2016-10-13] MEDS: predniSONE 20 MG TAB PO SCH ×2 (08:50→21:21)
[2016-10-13] MEDS: LORazepam 0.5 MG TAB PO SCH ×2 (08:50→21:21)
[2016-10-13] MEDS: PANTOPRAZOLE SOD 40 MG DELAYED RELEASE TAB PO SCH (08:50)
[2016-10-13] MEDS: FLUCONAZOLE 200 MG TAB PO SCH (08:50)
[2016-10-13] MEDS: BUDESONIDE-FORMOTEROL 160/4.5 MCG INHALER INH SCH ×2 (08:52→21:20)
[2016-10-13] MEDS: traMADol HCL 50 MG TAB PO PRN (12:19)
--- NOTE | 2016-10-13 12:35 | HHI.PR ---
Subjective History of Present Illness Patient have sever wheezing not able to walk because of SOB/ Wheezing.. Right hip pain better. .on coumadin INR 2.5 Today.. high LFTs monitoring DC Plan soon when SOB/ Wheezing better. d/w RN Shu at bed side. Review of Systems Constitutional Constitutional: Fatigue, Weakness Pulmonary Respiratory: Shortness of Breath, Wheezing Musculoskeletal MS Remarks Right Hip pain/ swelling. Integumentary Skin Remarks right hip bruise. Vitals/Results Intake & Output 10/12/16 10/12/16 10/13/16 15:00 23:00 07:00 Intake Total 1200 ml 927 ml 960 ml Output Total 1450 ml 1600 ml 1300 ml Balance -250 ml -673 ml -340 ml Intake Oral 1200 ml 720 ml 960 ml IV Total 207 ml Output Urine Total 1450 ml 1600 ml 1300 ml # Bowel Movements 2 1 0 Vital Signs Vital Signs Date Time Temp Pulse Resp B/P Pulse Ox O2 Delivery O2 Flow Rate FiO2 10/13/16 07:47 95.5 86 18 129/82 98 10/13/16 07:46 98 Nasal Cannula 2.00 10/13/16 00:29 96.8 90 19 138/85 97 10/12/16 23:39 97 Nasal Cannula 2.00 10/12/16 21:55 Nasal Cannula 3.00 10/12/16 20:23 97.2 100 18 142/84 98 10/12/16 20:22 99 21 10/12/16 16:38 98 Nasal Cannula 2.00 10/12/16 16:14 96.7 101 18 124/79 99 CBC/BMP: 10/12/16 0800 10/12/16 0800 Lab Results Laboratory Tests Test 10/12/16 15:35 Prothrombin Time 28.8 SEC Prothromb Time International 2.5 RATIO Ratio Physical Exam General General Appearance: No Acute Distress, Comfortable Eyes Eye Exam: Pupils Equal, Pupils Reactive, Sclera White, Extraocular Movement Intact Throat Throat Exam: Oral Mucosa [place] & Moist, Oral Pharynx Normal Neck Neck Exam: Neck Supple, Trachea Midline Pulmonary Resp Exam: Crackles, Diminished Breath Sounds Resp Remarks Sever Bilateral Wheezing. Cardiology CV Exam: Regular, Normal Sinus Rhythm Gastrointestinal/Abdomen GI Exam: Soft, Non-Tender, Bowel Sounds Present, Distended Musculoskeletal MS Exam: Normal Tone Integumentary Skin Exam: Warm, Dry Extremeties Extremities Exam: No Edema Neurologic Neuro Exam: Alert, Awake, Oriented, Speech Clear, Moving All Extremities, Regional Environmental Manager Equal, No Focal Deficits VTE Prophylaxis VTE Prophylaxis Meds: Coumadin PUD Prophylasis PUD Prophylaxis: Protonix Assessment/Plan Assessment/Plan ASSESSMENT AND PLAN: 1. This is a 51-year-old male who came to the emergency room diagnosed with shortness of breath and wheezing secondary to asthma exacerbation. The patient on Prednisone 20 mg PO Daily and also Xopenex and Atrovent nebulization and pulmonary input noted. The patient is on oxygen. Further recommendation per pulmonary. 2. History for right hip infection with fungus. The patient is on Diflucan + Micafungin.. He has right hip swelling and pain. Right hip ultrasound noted orthopedic input noted s/p needle drainage of hematoma right hip and d/w orthopedic not getting right hip hardware removed. will keep and watch per orthopedic. S/P MRI Right hip shows 12 cm hematoma/seroma. s/p needle drainage... S/P CT Pelvis show no more hematoma collection 3. Septic right hip. The patient is on Diflucan + Micafungin... Infectious disease input noted.. Will monitor. 4. History of chronic obstructive pulmonary disease. Continue home medications. 5. History of depression. Continue home medications. 6. History of anxiety. Continue with Ativan 0.5 milligrams twice a day. 7. Right hip pain. The patient on tramadol and [place] and also Dilaudid 0.5 milligrams p.o. q. 6 hours PRN pain. 8. History of hyperlipidemia. Continue on Lipitor 20 milligrams p.o. daily. 9. DVT prophylaxis. The patient is on coumadin. INR is therapeutic. 2.5 10. GI prophylaxis. Protonix 40 milligrams p.o. daily. The patient is also on Carafate 1 gram p.o. three times a day. 11. History of pulmonary embolism and DVT right leg. The patient is on coumadin and INR is therapeutic. Will monitor INR daily. 12. High blood sugar continue with ISS + Levemir 20 units subcut. HS. monitoring blood glucose. Check CBC with diff CMP in AM. We are going to manage the patient on a daily basis and make recommendations on a daily basis. Discussed Condition with: Patient Myron Woodward MD Oct 13, 2016 12:35
--- NOTE | 2016-10-13 16:45 | HHI.PR ---
Subjective Remarks 51 YOWM with Br asthma, PE, Hip infection Breathing better no Fever Up in chair Has Wheezing Objective Vital Signs Vital Signs Date Time Temp Pulse Resp B/P Pulse Ox O2 Delivery O2 Flow Rate FiO2 10/13/16 11:40 96.2 95 18 138/82 97 10/13/16 07:47 95.5 86 18 129/82 98 10/13/16 07:46 98 Nasal Cannula 2.00 10/13/16 00:29 96.8 90 19 138/85 97 10/12/16 23:39 97 Nasal Cannula 2.00 10/12/16 21:55 Nasal Cannula 3.00 10/12/16 20:23 97.2 100 18 142/84 98 10/12/16 20:22 99 21 I/O 10/12/16 10/12/16 10/12/16 10/13/16 10/13/16 10/13/16 07:00 15:00 23:00 07:00 15:00 23:00 Intake Total 800 ml 1200 ml 927 ml 960 ml Output Total 1800 ml 1450 ml 1600 ml 1300 ml Balance -1000 ml -250 ml -673 ml -340 ml Intake Oral 800 ml 1200 ml 720 ml 960 ml IV Total 207 ml Output Urine Total 1800 ml 1450 ml 1600 ml 1300 ml # Bowel Movements 0 2 1 0 Result Diagram: 10/12/16 0800 10/12/16 0800 Objective Remarks GENERAL: WBWN WM, mild sob SKIN: Warm and dry. HEAD: Normocephalic. EYES: No scleral icterus. No injection or drainage. NECK: Supple, trachea midline. No JVD or lymphadenopathy. CARDIOVASCULAR: Regular rate and rhythm without murmurs, gallops, or rubs. RESPIRATORY: Breath sounds equal bilaterally. No accessory muscle use. GASTROINTESTINAL: Abdomen soft, non-tender, nondistended. Exp rhonchi MUSCULOSKELETAL: No cyanosis, or edema. BACK: Nontender without obvious deformity. No CVA tenderness. A/P Assessment and Plan Bronchial asthma COPD exac Bronchitis PE PLAN: Aerosol nebs PO Prednisone Cont Abx Supplement 02 DW pt at BS Dr. Hernandez will FU in AM. Alvaro Bowen MD Oct 13, 2016 16:45
[2016-10-13] MEDS: WARFARIN SOD 2 MG TAB PO SCH (16:55)
[2016-10-13] MEDS: MICAFUNGIN INJ 150 MG in SODIUM CHLORIDE 0.9% INJ 100 ML IV SCH (17:52)
[2016-10-13 18:45] LABS: PROTHROMBIN TIME - PATIENT 34.6 SEC (9.8-11.6)
[2016-10-13] MEDS: ATORVASTATIN 20 MG TAB PO SCH (21:20)
[2016-10-13] MEDS: INSULIN DETEMIR 100 UNITS/ML VIAL SQ SCH (21:20)
[2016-10-13] MEDS: MONTELUKAST SODIUM 10 MG TAB PO SCH (21:21)
[2016-10-14] VITALS (7 sets, daily range): BP systolic 113–156; BP diastolic 79–96; PULSE 97–116; RESP 16–18; TEMP 96.4–98.3; O2SAT 94–98
[2016-10-14] MEDS: RESP: ALBUTEROL 2.5 MG/IPRATROPIUM 0.5 MG NEB (SCH) NEB ×6 (01:33→19:46)
[2016-10-14] MEDS: ACETAMINOPHEN/HYDROcodone 325 MG/7.5 MG TAB PO PRN ×2 (02:16→12:18)
[2016-10-14] MEDS: PROMETHAZINE/CODEINE 6.25 MG/10 MG/5 ML CUP PO PRN ×2 (02:16→15:55)
[2016-10-14] MEDS: oxyCODONE HCL 20 MG CONTROLLED RELEASE TAB PO SCH ×2 (06:46→17:30)
[2016-10-14] MEDS: INSULIN ASPART SUPPLEMENTAL SCALE SQ SCH ×4 (06:47→21:00)
[2016-10-14] MEDS: predniSONE 20 MG TAB PO SCH ×2 (09:38→21:48)
[2016-10-14] MEDS: PANTOPRAZOLE SOD 40 MG DELAYED RELEASE TAB PO SCH (09:38)
[2016-10-14] MEDS: FLUCONAZOLE 200 MG TAB PO SCH (09:38)
[2016-10-14] MEDS: SUCRALFATE 1 GM TAB PO SCH ×3 (09:38→17:31)
[2016-10-14] MEDS: POTASSIUM CHLORIDE 10 MEQ CONTROLLED RELEASE TAB PO SCH ×2 (09:38→21:48)
[2016-10-14] MEDS: LORazepam 0.5 MG TAB PO SCH ×2 (09:38→21:48)
[2016-10-14] MEDS: traMADol HCL 50 MG TAB PO PRN ×2 (09:38→21:58)
[2016-10-14] MEDS: DILTIAZEM-CD 180 MG CAP ER PO SCH (09:38)
[2016-10-14] MEDS: BUDESONIDE-FORMOTEROL 160/4.5 MCG INHALER INH SCH (09:39)
--- NOTE | 2016-10-14 13:23 | HHI.PR ---
Subjective Subjective Remarks mild sob some wheezing eating okay no cp anxious to go home no fever nose dry, small amount epistaxis, on oxygen (Elizabeth Iraheta) Review of Systems Constitutional Constitutional: Fatigue, Weakness Constitutional Remarks 12 point ROS completed, negative except as noted above (Elizabeth Iraheta) Pulmonary Respiratory: Shortness of Breath, Wheezing (Elizabeth Iraheta) Vitals/Results Intake & Output 10/13/16 10/13/16 10/14/16 15:00 23:00 07:00 Intake Total 720 ml 157 ml 720 ml Output Total 1575 ml Balance 720 ml 157 ml -855 ml Intake Oral 720 ml 720 ml IV Total 157 ml Output Urine Total 1575 ml # Voids 5 # Bowel Movements 1 0 Vital Signs Vital Signs Date Time Temp Pulse Resp B/P Pulse Ox O2 Delivery O2 Flow Rate FiO2 10/14/16 09:30 Nasal Cannula 2.00 10/14/16 07:24 96.7 97 18 156/96 96 10/14/16 00:31 98.3 107 18 143/95 96 10/13/16 21:13 Nasal Cannula 2.00 10/13/16 20:20 97.0 86 18 141/92 97 10/13/16 19:59 98 Nasal Cannula 2.00 10/13/16 16:21 97.2 107 18 134/87 97 (Elizabeth Iraheta) CBC/BMP: 10/12/16 0800 10/12/16 0800 Lab Results Laboratory Tests Test 10/13/16 18:15 Prothrombin Time 34.6 SEC Prothromb Time International 3.0 RATIO Ratio (Elizabeth Iraheta) Physical Exam General General Appearance: Well Developed, No Acute Distress, Comfortable (Elizabeth Iraheta) Eyes Eye Exam: Pupils Equal, Pupils Reactive (Elizabeth Iraheta) Throat Throat Exam: Oral Mucosa [place] & Moist (Elizabeth Iraheta) Neck Neck Exam: Neck Supple, Trachea Midline (Elizabeth Iraheta) Pulmonary Resp Exam: Diminished Breath Sounds Resp Remarks wheezes (Elizabeth Iraheta) Cardiology CV Exam: Regular, Normal Sinus Rhythm (Elizabeth Iraheta) Gastrointestinal/Abdomen GI Exam: Soft, Non-Tender, Bowel Sounds Present, Non-Distended (Elizabeth Iraheta) Musculoskeletal MS Exam: Normal Tone (Elizabeth Iraheta) Integumentary Skin Exam: Warm, Dry (Elizabeth Iraheta) Extremeties Extremities Exam: No Edema (Elizabeth Iraheta) Neurologic Neuro Exam: Alert, Awake, Oriented, Speech Clear, Moving All Extremities, Director Transportation Equal, No Focal Deficits (Elizabeth Iraheta) Psychiatric Psych Exam: Appropriate Responses (Elizabeth Iraheta) VTE Prophylaxis VTE Prophylaxis Meds: Coumadin (Elizabeth Iraheta) PUD Prophylasis PUD Prophylaxis: Protonix (Elizabeth Iraheta) Assessment/Plan Assessment/Plan ASSESSMENT AND PLAN: 1. Asthma exacerbation-continue oxygen, PO Prednisone, appreciate pulm input, Xopenex and Atrovent Apply humidifier to oxygen 2. History for right hip infection with fungus. The patient is on Diflucan + Micafungin.. He has right hip swelling and pain. Right hip ultrasound noted orthopedic input noted s/p needle drainage of hematoma right hip, per orthopedic not getting right hip hardware removed. S/P MRI Right hip shows 12 cm hematoma/seroma. s/p needle drainage... S/P CT Pelvis show no more hematoma collection 3. Septic right hip. The patient is on Diflucan + Micafungin... Infectious disease input noted.. Will monitor. 4. History of chronic obstructive pulmonary disease. Continue home medications. 5. History of depression. Continue home medications. 6. History of anxiety. Continue with Ativan 0.5 milligrams twice a day. 7. Right hip pain. The patient on tramadol and [place] and also Dilaudid 0.5 milligrams p.o. q. 6 hours PRN pain. 8. History of hyperlipidemia. Continue on Lipitor 20 milligrams p.o. daily. 9. History of pulmonary embolism and DVT right leg. The patient is on coumadin and INR is therapeutic. Will monitor INR daily. 10. High blood sugar continue with ISS + Levemir 20 units subcut. HS. monitoring blood glucose DVT prophylaxis. The patient is on Coumadin. INR is therapeutic 3.1 GI prophylaxis. Protonix 40 milligrams p.o. daily/ Carafate 1 gram p.o. three times a day. DC plan in progress, IV abx being arranged for OP Hopefully dc in 1-2 days D/W RN D/W Dr. Godoy D/W pt This patient was seen my by myself and Dr. Godoy, this note is written on his behalf. (Elizabeth Iraheta) Assessment/Plan Patient seen and examined as above. [id number] time spent with the patient Labs and medications and radiological data reviewed Sounds are previous notes reviewed Discussed with patient Plan of care discussed with MECHANICAL TECHNICIAN total time spent in managment of this pt is more than 35 min (Enoch Godoy MD) Elizabeth Iraheta Oct 14, 2016 13:23 Enoch Godoy MD Oct 14, 2016 16:34
[2016-10-14] MEDS: WARFARIN SOD 2 MG TAB PO SCH (15:55)
[2016-10-14] MEDS: MICAFUNGIN INJ 150 MG in SODIUM CHLORIDE 0.9% INJ 100 ML IV SCH (17:30)
[2016-10-14 17:59] LABS: INTERNATIONAL NORMALIZED RATIO 3.1 RATIO; PROTHROMBIN TIME - PATIENT 35.5 SEC (9.8-11.6)
[2016-10-14] MEDS: ATORVASTATIN 20 MG TAB PO SCH (21:48)
[2016-10-14] MEDS: INSULIN DETEMIR 100 UNITS/ML VIAL SQ SCH (21:48)
[2016-10-14] MEDS: MONTELUKAST SODIUM 10 MG TAB PO SCH (21:48)
[2016-10-15] VITALS (10 sets, daily range): BP systolic 131–145; BP diastolic 63–94; PULSE 91–118; RESP 16–18; TEMP 96.7–99; O2SAT 94–99
[2016-10-15] MEDS: RESP: ALBUTEROL 2.5 MG/IPRATROPIUM 0.5 MG NEB (SCH) NEB ×6 (00:49→19:44)
[2016-10-15] MEDS: ACETAMINOPHEN/HYDROcodone 325 MG/7.5 MG TAB PO PRN ×2 (01:34→11:14)
[2016-10-15] MEDS: BUDESONIDE-FORMOTEROL 160/4.5 MCG INHALER INH SCH ×3 (01:34→21:00)
[2016-10-15] MEDS: oxyCODONE HCL 20 MG CONTROLLED RELEASE TAB PO SCH ×2 (06:00→18:00)
[2016-10-15] MEDS: INSULIN ASPART SUPPLEMENTAL SCALE SQ SCH ×4 (07:00→21:00)
--- NOTE | 2016-10-15 08:20 | HHI.PR ---
Subjective History of Present Illness Patient have sever wheezing not able to walk because of SOB/ Wheezing.. Right hip pain better. .on coumadin INR 3.6 Today.. holding coumadin for 2 days.. high LFTs monitoring DC Plan soon when SOB/ Wheezing better. Review of Systems Constitutional Constitutional: Fatigue, Weakness Pulmonary Respiratory: Shortness of Breath, Wheezing Musculoskeletal MS Remarks Right Hip pain/ swelling. Integumentary Skin Remarks right hip bruise. Vitals/Results Intake & Output 10/14/16 10/14/16 10/15/16 15:00 23:00 07:00 Intake Total 1200 ml 480 ml 480 ml Output Total 600 ml 1000 ml Balance 1200 ml -120 ml -520 ml Intake Oral 1200 ml 480 ml 480 ml Output Urine Total 600 ml 1000 ml # Voids 5 # Bowel Movements 0 0 0 Vital Signs Vital Signs Date Time Temp Pulse Resp B/P Pulse Ox O2 Delivery O2 Flow Rate FiO2 10/15/16 07:58 99 Nasal Cannula 2.00 10/15/16 03:56 98 Nasal Cannula 2.00 10/15/16 00:50 98 Nasal Cannula 2.00 10/15/16 00:50 98 Nasal Cannula 2.00 10/15/16 00:00 97.1 91 17 133/88 96 10/14/16 20:00 97.0 108 16 128/84 97 10/14/16 19:46 98 Nasal Cannula 2.00 10/14/16 15:27 96.4 97 18 134/79 96 10/14/16 12:15 Nasal Cannula 2.00 Humidified 10/14/16 11:34 97.0 116 18 113/80 94 10/14/16 09:34 97 Nasal Cannula 3.00 10/14/16 09:30 Nasal Cannula 2.00 CBC/BMP: 10/12/16 0800 10/12/16 0800 Lab Results Laboratory Tests Test 10/14/16 17:25 Prothrombin Time 35.5 SEC Prothromb Time International 3.1 RATIO Ratio Physical Exam General General Appearance: Well Developed, No Acute Distress, Comfortable Eyes Eye Exam: Pupils Equal, Pupils Reactive Throat Throat Exam: Oral Mucosa [place] & Moist Neck Neck Exam: Neck Supple, Trachea Midline Pulmonary Resp Exam: Diminished Breath Sounds Resp Remarks Sever Bilateral Wheezing. Cardiology CV Exam: Regular, Normal Sinus Rhythm Gastrointestinal/Abdomen GI Exam: Soft, Non-Tender, Bowel Sounds Present, Non-Distended Musculoskeletal MS Exam: Normal Tone Integumentary Skin Exam: Warm, Dry Extremeties Extremities Exam: No Edema Neurologic Neuro Exam: Alert, Awake, Oriented, Speech Clear, Moving All Extremities, Financial Operations Analyst Equal, No Focal Deficits Psychiatric Psych Exam: Appropriate Responses VTE Prophylaxis VTE Prophylaxis Meds: Coumadin PUD Prophylasis PUD Prophylaxis: Protonix Assessment/Plan Assessment/Plan ASSESSMENT AND PLAN: 1. Asthma exacerbation-continue oxygen, PO Prednisone, appreciate pulm input, Xopenex and Atrovent Apply humidifier to oxygen 2. History for right hip infection with fungus. The patient is on Diflucan + Micafungin.. He has right hip swelling and pain. Right hip ultrasound noted orthopedic input noted s/p needle drainage of hematoma right hip, per orthopedic not getting right hip hardware removed. S/P MRI Right hip shows 12 cm hematoma/seroma. s/p needle drainage... S/P CT Pelvis show no more hematoma collection 3. Septic right hip. The patient is on Diflucan + Micafungin... Infectious disease input noted.. Will monitor. 4. History of chronic obstructive pulmonary disease. Continue home medications. 5. History of depression. Continue home medications. 6. History of anxiety. Continue with Ativan 0.5 milligrams twice a day. 7. Right hip pain. The patient on tramadol and [place] and also Dilaudid 0.5 milligrams p.o. q. 6 hours PRN pain. 8. History of hyperlipidemia. Continue on Lipitor 20 milligrams p.o. daily. 9. History of pulmonary embolism and DVT right leg. The patient is on coumadin and INR is supratherapeutic. holding coumadin for 2 days..Will monitor INR daily. 10. High blood sugar continue with ISS + Levemir 20 units subcut. HS. monitoring blood glucose DVT prophylaxis. The patient is on Coumadin. INR is therapeutic 3.6 Today.. holding coumadin for 2 days. GI prophylaxis. Protonix 40 milligrams p.o. daily/ Carafate 1 gram p.o. three times a day. DC plan in progress, IV abx being arranged for OP Hopefully dc in 1-2 days Discussed Condition with: Patient Myron Woodward MD Oct 15, 2016 08:20 behalf. Myron Woodward MD Oct 15, 2016 08:20
[2016-10-15] MEDS: DILTIAZEM-CD 180 MG CAP ER PO SCH (08:57)
[2016-10-15] MEDS: SUCRALFATE 1 GM TAB PO SCH ×3 (08:57→17:10)
[2016-10-15] MEDS: FLUCONAZOLE 200 MG TAB PO SCH (08:57)
[2016-10-15] MEDS: POTASSIUM CHLORIDE 10 MEQ CONTROLLED RELEASE TAB PO SCH ×2 (08:57→23:06)
[2016-10-15] MEDS: predniSONE 20 MG TAB PO SCH ×2 (08:57→23:06)
[2016-10-15] MEDS: LORazepam 0.5 MG TAB PO SCH ×2 (08:57→23:06)
[2016-10-15] MEDS: PANTOPRAZOLE SOD 40 MG DELAYED RELEASE TAB PO SCH (08:57)
[2016-10-15] MEDS: PROMETHAZINE/CODEINE 6.25 MG/10 MG/5 ML CUP PO PRN (11:14)
[2016-10-15] MEDS: WARFARIN SOD 2 MG TAB PO SCH (17:10)
[2016-10-15] MEDS: traMADol HCL 50 MG TAB PO PRN (17:11)
[2016-10-15] MEDS: MICAFUNGIN INJ 150 MG in SODIUM CHLORIDE 0.9% INJ 100 ML IV SCH (17:30)
[2016-10-15 17:42] LABS: INTERNATIONAL NORMALIZED RATIO 3.6 RATIO; PROTHROMBIN TIME - PATIENT 42.4 SEC (9.8-11.6)
[2016-10-15] MEDS: ATORVASTATIN 20 MG TAB PO SCH (23:06)
[2016-10-15] MEDS: MONTELUKAST SODIUM 10 MG TAB PO SCH (23:06)
[2016-10-15] MEDS: INSULIN DETEMIR 100 UNITS/ML VIAL SQ SCH (23:07)
[2016-10-16] VITALS (8 sets, daily range): BP systolic 142–153; BP diastolic 74–101; PULSE 94–117; RESP 16–20; TEMP 96–98.5; O2SAT 92–99
[2016-10-16] MEDS: RESP: ALBUTEROL 2.5 MG/IPRATROPIUM 0.5 MG NEB (SCH) NEB ×3 (00:12→08:50)
[2016-10-16] MEDS: oxyCODONE HCL 20 MG CONTROLLED RELEASE TAB PO SCH ×2 (06:36→17:35)
[2016-10-16] MEDS: INSULIN ASPART SUPPLEMENTAL SCALE SQ SCH ×4 (07:00→21:00)
[2016-10-16] MEDS: predniSONE 20 MG TAB PO SCH ×2 (08:01→21:50)
[2016-10-16] MEDS: BUDESONIDE-FORMOTEROL 160/4.5 MCG INHALER INH SCH ×2 (08:01→21:48)
[2016-10-16] MEDS: traMADol HCL 50 MG TAB PO PRN ×4 (08:01→21:50)
[2016-10-16] MEDS: SUCRALFATE 1 GM TAB PO SCH ×3 (08:02→17:35)
[2016-10-16] MEDS: POTASSIUM CHLORIDE 10 MEQ CONTROLLED RELEASE TAB PO SCH ×2 (08:02→21:49)
[2016-10-16] MEDS: DILTIAZEM-CD 180 MG CAP ER PO SCH (08:02)
[2016-10-16] MEDS: FLUCONAZOLE 200 MG TAB PO SCH (08:02)
[2016-10-16] MEDS: LORazepam 0.5 MG TAB PO SCH ×2 (08:02→21:50)
[2016-10-16] MEDS: PANTOPRAZOLE SOD 40 MG DELAYED RELEASE TAB PO SCH (08:02)
--- NOTE | 2016-10-16 08:11 | HHI.PR ---
Subjective History of Present Illness Patient have sever wheezing not able to walk because of SOB/ Wheezing.. Right hip pain better. .on coumadin INR 3.6 . holding coumadin for 1 days.. high LFTs monitoring DC Plan soon when SOB/ Wheezing better. Review of Systems Constitutional Constitutional: Fatigue, Weakness Pulmonary Respiratory: Shortness of Breath, Wheezing Musculoskeletal MS Remarks Right Hip pain/ swelling. Integumentary Skin Remarks right hip bruise. Vitals/Results Intake & Output 10/15/16 10/15/16 10/16/16 15:00 23:00 07:00 Intake Total 1260 ml 480 ml 480 ml Output Total 600 ml 1500 ml Balance 1260 ml -120 ml -1020 ml Intake Oral 1260 ml 480 ml 480 ml Output Urine Total 600 ml 1500 ml # Voids 5 # Bowel Movements 2 0 0 Vital Signs Vital Signs Date Time Temp Pulse Resp B/P Pulse Ox O2 Delivery O2 Flow Rate FiO2 10/16/16 00:13 99 Nasal Cannula 2.00 10/16/16 00:00 96.7 100 16 147/89 95 10/15/16 20:19 97.4 95 16 145/94 99 10/15/16 16:00 99.0 118 18 131/80 98 10/15/16 15:10 98 Nasal Cannula 2.00 10/15/16 13:04 99 Nasal Cannula 2.00 10/15/16 12:00 96.7 105 18 142/63 94 10/15/16 08:52 Nasal Cannula 2.00 Humidified CBC/BMP: 10/12/16 0800 10/12/16 0800 Lab Results Laboratory Tests Test 10/15/16 17:15 Prothrombin Time 42.4 SEC Prothromb Time International 3.6 RATIO Ratio Physical Exam General General Appearance: Well Developed, No Acute Distress, Comfortable Eyes Eye Exam: Pupils Equal, Pupils Reactive Throat Throat Exam: Oral Mucosa [place] & Moist Neck Neck Exam: Neck Supple, Trachea Midline Pulmonary Resp Exam: Diminished Breath Sounds Resp Remarks Sever Bilateral Wheezing. Cardiology CV Exam: Regular, Normal Sinus Rhythm Gastrointestinal/Abdomen GI Exam: Soft, Non-Tender, Bowel Sounds Present, Non-Distended Musculoskeletal MS Exam: Normal Tone Integumentary Skin Exam: Warm, Dry Extremeties Extremities Exam: No Edema Neurologic Neuro Exam: Alert, Awake, Oriented, Speech Clear, Moving All Extremities, Racehorse Trainer Equal, No Focal Deficits Psychiatric Psych Exam: Appropriate Responses VTE Prophylaxis VTE Prophylaxis Meds: Coumadin PUD Prophylasis PUD Prophylaxis: Protonix Assessment/Plan Assessment/Plan ASSESSMENT AND PLAN: 1. Asthma exacerbation-continue oxygen, PO Prednisone, appreciate pulm input, Xopenex and Atrovent Apply humidifier to oxygen 2. History for right hip infection with fungus. The patient is on Diflucan + Micafungin.. He has right hip swelling and pain. Right hip ultrasound noted orthopedic input noted s/p needle drainage of hematoma right hip, per orthopedic not getting right hip hardware removed. S/P MRI Right hip shows 12 cm hematoma/seroma. s/p needle drainage... S/P CT Pelvis show no more hematoma collection 3. Septic right hip. The patient is on Diflucan + Micafungin... Infectious disease input noted.. Will monitor. 4. History of chronic obstructive pulmonary disease. Continue home medications. 5. History of depression. Continue home medications. 6. History of anxiety. Continue with Ativan 0.5 milligrams twice a day. 7. Right hip pain. The patient on tramadol and [place] and also Dilaudid 0.5 milligrams p.o. q. 6 hours PRN pain. 8. History of hyperlipidemia. Continue on Lipitor 20 milligrams p.o. daily. 9. History of pulmonary embolism and DVT right leg. The patient is on coumadin and INR is supratherapeutic. holding coumadin for 1 days..Will monitor INR daily. 10. High blood sugar continue with ISS + Levemir 20 units subcut. HS. monitoring blood glucose DVT prophylaxis. The patient is on Coumadin. INR is therapeutic 3.6 Today.. holding coumadin for 1 days. GI prophylaxis. Protonix 40 milligrams p.o. daily/ Carafate 1 gram p.o. three times a day. DC plan in progress, IV abx being arranged for OP Hopefully dc in 1-2 days Discussed Condition with: Patient Myron Woodward MD Oct 16, 2016 08:11
[2016-10-16 12:40] LABS: BASOPHIL % 0.5 % (0.0-2.0); EOSINOPHIL % 0.1 % (0.0-4.0); HEMATOCRIT 30.5 % (39.0-51.0); LYMPH % 5.2 % (9.0-44.0); LYMPHOCYTE # 0.5 TH/MM3 (1.0-4.8); MEAN CELL VOLUME 78.2 FL (80.0-100.0); MEAN CORPUSCULAR HEMOGLOBIN 25.4 PG (27.0-34.0); MEAN CORPUSCULAR HGB CONC 32.5 % (32.0-36.0); MONO % 6.7 % (0.0-8.0); NEUT % 87.5 % (16.0-70.0); PLATELET COUNT 376 TH/MM3 (150-450); RED CELL DISTRIBUTION WIDTH 23.6 % (11.6-17.2); WHITE BLOOD COUNT 10.3 TH/MM3 (4.0-11.0)
[2016-10-16 12:45] LABS: HEMO FLAGS AUTO DIFF
[2016-10-16 12:48] LABS: INTERNATIONAL NORMALIZED RATIO 3.8 RATIO; PROTHROMBIN TIME - PATIENT 44.9 SEC (9.8-11.6)
[2016-10-16 13:23] LABS: ALKALINE PHOSPHATASE 154 U/L (45-117); ALT (GPT) 131 U/L (12-78); AST (GOT) 31 U/L (15-37); BLOOD UREA NITROGEN 13 MG/DL (7-18); GLOMERULAR FILTRATION RATE 103 ML/MIN (>89); TOTAL BILIRUBIN ADULT 0.3 MG/DL (0.2-1.0)
[2016-10-16 13:24] LABS: ANION GAP 8 MEQ/L (5-15); BICARBONATE 30.3 MEQ/L (21.0-32.0); CHLORIDE 97 MEQ/L (98-107); POTASSIUM 3.8 MEQ/L (3.5-5.1); SODIUM (NA) 135 MEQ/L (136-145)
[2016-10-16 13:28] LABS: BANDS 1 % (0-6); METAMYELOCYTES 1 % (0-1); MYELOCYTES 5 % (0-0); POLYS (SEG NEUTROPHILS) 80 % (16-70); WBC DIFF SAMPLE 100
[2016-10-16 13:29] LABS: OVALOCYTES 1+ (NORMAL); PLATELET ESTIMATE SMEAR NORMAL (NORMAL); POLYCHROMASIA 2.8 % (0.0-1.9)
[2016-10-16 13:30] LABS: PLATELET MORPHOLOGY NORMAL (NORMAL); SCAN/DIFF FINAL DIFF MANUAL
[2016-10-16] MEDS: PROMETHAZINE/CODEINE 6.25 MG/10 MG/5 ML CUP PO PRN (14:21)
[2016-10-16] MEDS: MICAFUNGIN INJ 150 MG in SODIUM CHLORIDE 0.9% INJ 100 ML IV SCH (17:35)
[2016-10-16] MEDS: RESP: ALBUTEROL 2.5 MG/IPRATROPIUM 0.5 MG NEB (PRN) NEB (19:31)
[2016-10-16] MEDS: INSULIN DETEMIR 100 UNITS/ML VIAL SQ SCH (21:49)
[2016-10-16] MEDS: ATORVASTATIN 20 MG TAB PO SCH (21:50)
[2016-10-16] MEDS: MONTELUKAST SODIUM 10 MG TAB PO SCH (21:50)
[2016-10-17 00:27] VITALS: BP 142/87; PULSE 95; RESP 19; TEMP 97.3; O2SAT 96
[2016-10-17] MEDS: RESP: ALBUTEROL 2.5 MG/IPRATROPIUM 0.5 MG NEB (PRN) NEB ×3 (00:35→08:29)
[2016-10-17 00:37] VITALS: O2SAT 98
[2016-10-17] MEDS: oxyCODONE HCL 20 MG CONTROLLED RELEASE TAB PO SCH ×2 (05:46→17:08)
[2016-10-17 06:11] LABS: HEMATOCRIT 28.1 % (39.0-51.0); MEAN CELL VOLUME 78.3 FL (80.0-100.0); MEAN CORPUSCULAR HEMOGLOBIN 25.2 PG (27.0-34.0); MEAN CORPUSCULAR HGB CONC 32.1 % (32.0-36.0); PLATELET COUNT 344 TH/MM3 (150-450); RED BLOOD COUNT 3.59 MIL/MM3 (4.50-5.90); RED CELL DISTRIBUTION WIDTH 23.2 % (11.6-17.2)
[2016-10-17 06:14] LABS: HEMO FLAGS AUTO DIFF
[2016-10-17 06:30] LABS: INTERNATIONAL NORMALIZED RATIO 3.8 RATIO; PROTHROMBIN TIME - PATIENT 44.1 SEC (9.8-11.6)
[2016-10-17 06:50] LABS: ALKALINE PHOSPHATASE 136 U/L (45-117); ALT (GPT) 119 U/L (12-78); ANION GAP 8 MEQ/L (5-15); AST (GOT) 34 U/L (15-37); BICARBONATE 30.4 MEQ/L (21.0-32.0); BLOOD UREA NITROGEN 11 MG/DL (7-18); CHLORIDE 101 MEQ/L (98-107); GLOMERULAR FILTRATION RATE 103 ML/MIN (>89); POTASSIUM 3.4 MEQ/L (3.5-5.1); SODIUM (NA) 139 MEQ/L (136-145); TOTAL BILIRUBIN ADULT 0.3 MG/DL (0.2-1.0)
[2016-10-17 07:28] LABS: NEUTROPHIL # MANUAL DIFF 5.6 TH/MM3 (1.8-7.7); POLYS (SEG NEUTROPHILS) 80 % (16-70); WBC DIFF SAMPLE 100
[2016-10-17 07:29] LABS: PLATELET ESTIMATE SMEAR NORMAL (NORMAL); PLATELET MORPHOLOGY NORMAL (NORMAL); SCAN/DIFF FINAL DIFF MANUAL
[2016-10-17 07:30] LABS: OVALOCYTES 1+ (NORMAL); TEARDROP RBCS 1+ (NORMAL)
[2016-10-17] MEDS: INSULIN ASPART SUPPLEMENTAL SCALE SQ SCH ×4 (07:53→21:23)
[2016-10-17 08:00] VITALS: BP 146/92; PULSE 90; RESP 20; TEMP 96; O2SAT 97
--- NOTE | 2016-10-17 08:08 | HHI.PR ---
Subjective History of Present Illness Patient have sever wheezing not able to walk because of SOB/ Wheezing.. Right hip pain better. .on coumadin INR 3.8 . holding coumadin .. high LFTs monitoring DC Plan soon when SOB/ Wheezing better. D/W RN Malissa at bed side. Review of Systems Constitutional Constitutional: Fatigue, Weakness Pulmonary Respiratory: Shortness of Breath, Wheezing Musculoskeletal MS Remarks Right Hip pain/ swelling. Integumentary Skin Remarks right hip bruise. Vitals/Results Intake & Output 10/16/16 10/16/16 10/17/16 15:00 23:00 07:00 Intake Total 1260 ml 1400 ml 720 ml Output Total 1900 ml 1725 ml Balance 1260 ml -500 ml -1005 ml Intake Oral 1260 ml 1400 ml 720 ml Output Urine Total 1900 ml 1725 ml # Voids 5 # Bowel Movements 2 1 0 Vital Signs Vital Signs Date Time Temp Pulse Resp B/P Pulse Ox O2 Delivery O2 Flow Rate FiO2 10/17/16 00:37 98 Nasal Cannula 2.00 10/17/16 00:27 97.3 95 19 142/87 96 10/16/16 20:20 98.5 117 20 153/74 95 10/16/16 19:31 95 Nasal Cannula 2.00 10/16/16 16:41 97.4 112 18 142/97 97 10/16/16 12:00 96.2 94 18 148/101 98 10/16/16 08:47 98 Nasal Cannula 2.00 CBC/BMP: 10/17/16 0555 10/17/16 0555 Lab Results Laboratory Tests Test 10/16/16 10/17/16 12:25 05:55 White Blood Count 10.3 TH/MM3 7.0 TH/MM3 Red Blood Count 3.90 MIL/MM3 3.59 MIL/MM3 Hemoglobin 9.9 GM/DL 9.0 GM/DL Hematocrit 30.5 % 28.1 % Mean Corpuscular Volume 78.2 FL 78.3 FL Mean Corpuscular Hemoglobin 25.4 PG 25.2 PG Mean Corpuscular Hemoglobin 32.5 % 32.1 % Concent Red Cell Distribution Width 23.6 % 23.2 % Platelet Count 376 TH/MM3 344 TH/MM3 Mean Platelet Volume 6.6 FL 6.7 FL Neutrophils (%) (Auto) 87.5 % % Lymphocytes (%) (Auto) 5.2 % % Monocytes (%) (Auto) 6.7 % % Eosinophils (%) (Auto) 0.1 % % Basophils (%) (Auto) 0.5 % % Neutrophils # (Auto) 9.0 TH/MM3 TH/MM3 Lymphocytes # (Auto) 0.5 TH/MM3 TH/MM3 Monocytes # (Auto) 0.7 TH/MM3 TH/MM3 Eosinophils # (Auto) 0.0 TH/MM3 TH/MM3 Basophils # (Auto) 0.0 TH/MM3 TH/MM3 CBC Comment AUTO DIFF AUTO DIFF Differential Total Cells 100 100 Counted Neutrophils % (Manual) 80 % 80 % Band Neutrophils % 1 % Lymphocytes % 9 % 17 % Monocytes % 4 % 3 % Neutrophils # (Manual) 9.0 TH/MM3 5.6 TH/MM3 Metamyelocytes 1 % Myelocytes 5 % Differential Comment FINAL DIFF FINAL DIFF MANUAL MANUAL Platelet Estimate NORMAL NORMAL Platelet Morphology Comment NORMAL NORMAL Polychromasia 2.8 % Ovalocytes 1+ 1+ Prothrombin Time 44.9 SEC 44.1 SEC Prothromb Time International 3.8 RATIO 3.8 RATIO Ratio Sodium Level 135 MEQ/L 139 MEQ/L Potassium Level 3.8 MEQ/L 3.4 MEQ/L Chloride Level 97 MEQ/L 101 MEQ/L Carbon Dioxide Level 30.3 MEQ/L 30.4 MEQ/L Anion Gap 8 MEQ/L 8 MEQ/L Blood Urea Nitrogen 13 MG/DL 11 MG/DL Creatinine 0.79 MG/DL 0.79 MG/DL Estimat Glomerular Filtration 103 ML/MIN 103 ML/MIN Rate Random Glucose 173 MG/DL 192 MG/DL Calcium Level 9.0 MG/DL 8.7 MG/DL Total Bilirubin 0.3 MG/DL 0.3 MG/DL Aspartate Amino Transf 31 U/L 34 U/L (AST/SGOT) Alanine Aminotransferase 131 U/L 119 U/L (ALT/SGPT) Alkaline Phosphatase 154 U/L 136 U/L Total Protein 6.7 GM/DL 5.8 GM/DL Albumin 3.8 GM/DL 3.4 GM/DL Tear Drop Cells 1+ Physical Exam General General Appearance: Well Developed, No Acute Distress, Comfortable Eyes Eye Exam: Pupils Equal, Pupils Reactive Throat Throat Exam: Oral Mucosa [place] & Moist Neck Neck Exam: Neck Supple, Trachea Midline Pulmonary Resp Exam: Diminished Breath Sounds Resp Remarks Sever Bilateral Wheezing. Cardiology CV Exam: Regular, Normal Sinus Rhythm Gastrointestinal/Abdomen GI Exam: Soft, Non-Tender, Bowel Sounds Present, Non-Distended Musculoskeletal MS Exam: Normal Tone Integumentary Skin Exam: Warm, Dry Extremeties Extremities Exam: No Edema Neurologic Neuro Exam: Alert, Awake, Oriented, Speech Clear, Moving All Extremities, Filling Station Attendant Equal, No Focal Deficits Psychiatric Psych Exam: Appropriate Responses VTE Prophylaxis VTE Prophylaxis Meds: Coumadin PUD Prophylasis PUD Prophylaxis: Protonix Assessment/Plan Assessment/Plan ASSESSMENT AND PLAN: 1. Asthma exacerbation-continue oxygen, PO Prednisone, appreciate pulm input, Xopenex and Atrovent Apply humidifier to oxygen 2. History for right hip infection with fungus. The patient is on Diflucan + Micafungin.. He has right hip swelling and pain. Right hip ultrasound noted orthopedic input noted s/p needle drainage of hematoma right hip, per orthopedic not getting right hip hardware removed. S/P MRI Right hip shows 12 cm hematoma/seroma. s/p needle drainage... S/P CT Pelvis show no more hematoma collection 3. Septic right hip. The patient is on Diflucan + Micafungin... Infectious disease input noted.. Will monitor. 4. History of chronic obstructive pulmonary disease. Continue home medications. 5. History of depression. Continue home medications. 6. History of anxiety. Continue with Ativan 0.5 milligrams twice a day. 7. Right hip pain. The patient on tramadol and [place] and also Dilaudid 0.5 milligrams p.o. q. 6 hours PRN pain. 8. History of hyperlipidemia. Continue on Lipitor 20 milligrams p.o. daily. 9. History of pulmonary embolism and DVT right leg. The patient is off coumadin and INR is supratherapeutic. .Will monitor INR daily. 10. High blood sugar continue with ISS + Levemir 20 units subcut. HS. monitoring blood glucose DVT prophylaxis. The patient is on Coumadin. INR is therapeutic 3.8 Today.. holding coumadin. GI prophylaxis. Protonix 40 milligrams p.o. daily/ Carafate 1 gram p.o. three times a day. DC plan in progress, IV abx being arranged for OP Hopefully dc in 1-2 days Check CBC with diff CMP in AM. Discussed Condition with: Patient Myron Woodward MD Oct 17, 2016 08:08
[2016-10-17] MEDS: BUDESONIDE-FORMOTEROL 160/4.5 MCG INHALER INH SCH ×2 (08:59→21:24)
[2016-10-17] MEDS: predniSONE 20 MG TAB PO SCH ×2 (09:00→21:21)
[2016-10-17] MEDS: SUCRALFATE 1 GM TAB PO SCH ×3 (09:00→17:08)
[2016-10-17] MEDS: traMADol HCL 50 MG TAB PO PRN ×2 (09:00→18:10)
[2016-10-17] MEDS: FLUCONAZOLE 200 MG TAB PO SCH (09:00)
[2016-10-17] MEDS: POTASSIUM CHLORIDE 10 MEQ CONTROLLED RELEASE TAB PO SCH ×2 (09:00→21:21)
[2016-10-17] MEDS: DILTIAZEM-CD 180 MG CAP ER PO SCH (09:00)
[2016-10-17] MEDS: PANTOPRAZOLE SOD 40 MG DELAYED RELEASE TAB PO SCH (09:00)
[2016-10-17] MEDS: LORazepam 0.5 MG TAB PO SCH ×2 (09:01→21:21)
[2016-10-17] MEDS: POLYETHYLENE GLYCOL 17 GM PKG PO PRN (09:03)
[2016-10-17] MEDS: RESP: ALBUTEROL 2.5 MG/IPRATROPIUM 0.5 MG NEB (SCH) NEB ×5 (09:30→20:44)
[2016-10-17 10:44] LABS: INTERNATIONAL NORMALIZED RATIO 3.7 RATIO; PROTHROMBIN TIME - PATIENT 43.5 SEC (9.8-11.6)
[2016-10-17 12:00] VITALS: BP 136/97; PULSE 117; RESP 20; TEMP 97.7; O2SAT 97
[2016-10-17] MEDS: PROMETHAZINE/CODEINE 6.25 MG/10 MG/5 ML CUP PO PRN ×2 (14:15→21:22)
[2016-10-17] MEDS: ACETAMINOPHEN/HYDROcodone 325 MG/7.5 MG TAB PO PRN (14:37)
--- NOTE | 2016-10-17 15:31 | HHI.PR ---
Subjective Remarks no sob no fever or cill no cough or sputum Objective Item Value Date Time Racepinephrine 0.5 ml 03/23/16 0830 (Racepinephrine Q2HR NEB PRN/NEB 04/04/16 0329 2.25% Neb) Vital Signs Date Time Temp Pulse Resp B/P Pulse Ox O2 Delivery O2 Flow Rate FiO2 10/17/16 14:40 Nasal Cannula 2.00 10/17/16 12:00 97.7 117 20 136/97 97 10/17/16 09:07 Nasal Cannula 2.00 Humidified 10/17/16 08:00 96.0 90 20 146/92 97 10/17/16 00:37 98 Nasal Cannula 2.00 10/17/16 00:27 97.3 95 19 142/87 96 10/16/16 20:20 98.5 117 20 153/74 95 10/16/16 19:31 95 Nasal Cannula 2.00 10/16/16 16:41 97.4 112 18 142/97 97 I/O 10/16/16 10/16/16 10/16/16 10/17/16 10/17/16 10/17/16 07:00 15:00 23:00 07:00 15:00 23:00 Intake Total 480 ml 1260 ml 1400 ml 720 ml Output Total 1500 ml 1900 ml 1725 ml Balance -1020 ml 1260 ml -500 ml -1005 ml Intake Oral 480 ml 1260 ml 1400 ml 720 ml Output Urine Total 1500 ml 1900 ml 1725 ml # Voids 5 # Bowel Movements 0 2 1 0 Result Diagram: 10/17/16 0555 10/17/16 0555 Other Results GENERAL: SKIN: Warm and dry. HEAD: Atraumatic. Normocephalic. EYES: Pupils equal and round. No scleral icterus. No injection or drainage. ENT: No nasal bleeding or discharge. Mucous membranes pink and moist. NECK: Trachea midline. No JVD. CARDIOVASCULAR: Regular rate and rhythm. RESPIRATORY: No accessory muscle use. Clear to auscultation. Breath sounds equal bilaterally. GASTROINTESTINAL: Abdomen soft, non-tender, nondistended. Hepatic and splenic margins not palpable. MUSCULOSKELETAL: Extremities without clubbing, cyanosis, or edema. No obvious deformities. NEUROLOGICAL: Awake and alert. No obvious cranial nerve deficits. Motor grossly within normal limits. Five out of 5 muscle strength in the arms and legs. Normal speech. PSYCHIATRIC: Appropriate mood and affect; insight and judgment normal. Assessment and Plan Assessment and Plan pulm improving with occasional whheze DVT/PE ON COUMADIN ContINUE o2 THERAPY INCREASE ACTIVITY Mary Hernandez MD Oct 17, 2016 15:31
[2016-10-17 16:00] VITALS: BP 124/89; PULSE 105; RESP 16; TEMP 96.6; O2SAT 97
[2016-10-17] MEDS: MICAFUNGIN INJ 150 MG in SODIUM CHLORIDE 0.9% INJ 100 ML IV SCH (17:07)
[2016-10-17 20:21] VITALS: BP 158/95; PULSE 95; RESP 20; TEMP 96.6; O2SAT 96
[2016-10-17] MEDS: ATORVASTATIN 20 MG TAB PO SCH (21:21)
[2016-10-17] MEDS: MONTELUKAST SODIUM 10 MG TAB PO SCH (21:21)
[2016-10-17] MEDS: INSULIN DETEMIR 100 UNITS/ML VIAL SQ SCH (21:22)
[2016-10-18] VITALS (9 sets, daily range): BP systolic 136–143; BP diastolic 41–93; PULSE 97–113; RESP 16–20; TEMP 96.6–97.5; O2SAT 96–99
[2016-10-18] MEDS: RESP: ALBUTEROL 2.5 MG/IPRATROPIUM 0.5 MG NEB (SCH) NEB ×6 (00:27→19:26)
[2016-10-18] MEDS: oxyCODONE HCL 20 MG CONTROLLED RELEASE TAB PO SCH ×2 (06:00→17:15)
[2016-10-18 06:36] LABS: INTERNATIONAL NORMALIZED RATIO 2.6 RATIO; PROTHROMBIN TIME - PATIENT 29.5 SEC (9.8-11.6)
--- NOTE | 2016-10-18 06:49 | HHI.PR ---
Subjective History of Present Illness Patient have sever wheezing not able to walk because of SOB/ Wheezing.. Right hip pain better. .on coumadin INR 2.6 . holding coumadin .. high LFTs monitoring DC Plan soon when SOB/ Wheezing better. Review of Systems Constitutional Constitutional: Fatigue, Weakness Pulmonary Respiratory: Shortness of Breath, Wheezing Musculoskeletal MS Remarks Right Hip pain/ swelling. Integumentary Skin Remarks right hip bruise. Vitals/Results Intake & Output 10/17/16 10/17/16 10/18/16 15:00 23:00 07:00 Intake Total 720 ml 720 ml 1080 ml Output Total 1125 ml 1050 ml 1725 ml Balance -405 ml -330 ml -645 ml Intake Oral 720 ml 720 ml 1080 ml Output Urine Total 1125 ml 1050 ml 1725 ml # Bowel Movements 1 0 0 Vital Signs Vital Signs Date Time Temp Pulse Resp B/P Pulse Ox O2 Delivery O2 Flow Rate FiO2 10/18/16 04:28 97 Nasal Cannula 2.00 10/18/16 00:28 97 Nasal Cannula 2.00 10/18/16 00:24 96.6 100 20 143/41 96 10/17/16 20:45 Nasal Cannula 10/17/16 20:21 96.6 95 20 158/95 96 10/17/16 18:09 Nasal Cannula 2.00 Humidified 10/17/16 17:12 Nasal Cannula 2.00 Humidified 10/17/16 16:00 96.6 105 16 124/89 97 10/17/16 14:40 Nasal Cannula 2.00 10/17/16 12:00 97.7 117 20 136/97 97 10/17/16 09:07 Nasal Cannula 2.00 Humidified 10/17/16 08:00 96.0 90 20 146/92 97 CBC/BMP: 10/17/16 0555 10/17/16 0555 Lab Results Laboratory Tests Test 10/17/16 10/18/16 10:15 05:24 Prothrombin Time 43.5 SEC 29.5 SEC Prothromb Time International 3.7 RATIO 2.6 RATIO Ratio Physical Exam General General Appearance: Well Developed, No Acute Distress, Comfortable Eyes Eye Exam: Pupils Equal, Pupils Reactive Throat Throat Exam: Oral Mucosa [place] & Moist Neck Neck Exam: Neck Supple, Trachea Midline Pulmonary Resp Exam: Diminished Breath Sounds Resp Remarks Sever Bilateral Wheezing. Cardiology CV Exam: Regular, Normal Sinus Rhythm Gastrointestinal/Abdomen GI Exam: Soft, Non-Tender, Bowel Sounds Present, Non-Distended Musculoskeletal MS Exam: Normal Tone Integumentary Skin Exam: Warm, Dry Extremeties Extremities Exam: No Edema Neurologic Neuro Exam: Alert, Awake, Oriented, Speech Clear, Moving All Extremities, Alpine Patroller Equal, No Focal Deficits Psychiatric Psych Exam: Appropriate Responses VTE Prophylaxis VTE Prophylaxis Meds: Coumadin PUD Prophylasis PUD Prophylaxis: Protonix Assessment/Plan Assessment/Plan ASSESSMENT AND PLAN: 1. Asthma exacerbation-continue oxygen, PO Prednisone, appreciate pulm input, Xopenex and Atrovent Apply humidifier to oxygen 2. History for right hip infection with fungus. The patient is on Diflucan + Micafungin.. He has right hip swelling and pain. Right hip ultrasound noted orthopedic input noted s/p needle drainage of hematoma right hip, per orthopedic not getting right hip hardware removed. S/P MRI Right hip shows 12 cm hematoma/seroma. s/p needle drainage... S/P CT Pelvis show no more hematoma collection 3. Septic right hip. The patient is on Diflucan + Micafungin... Infectious disease input noted.. Will monitor. 4. History of chronic obstructive pulmonary disease. Continue home medications. 5. History of depression. Continue home medications. 6. History of anxiety. Continue with Ativan 0.5 milligrams twice a day. 7. Right hip pain. The patient on tramadol and [place] and also Dilaudid 0.5 milligrams p.o. q. 6 hours PRN pain. 8. History of hyperlipidemia. Continue on Lipitor 20 milligrams p.o. daily. 9. History of pulmonary embolism and DVT right leg. The patient is off coumadin and INR therapeutic. .Will monitor INR daily. 10. High blood sugar continue with ISS + Levemir 20 units subcut. HS. monitoring blood glucose DVT prophylaxis. The patient is on Coumadin. INR is therapeutic 2.6 Today.. holding coumadin. GI prophylaxis. Protonix 40 milligrams p.o. daily/ Carafate 1 gram p.o. three times a day. DC plan in progress, IV abx being arranged for OP Hopefully dc in 1-2 days Check CBC with diff CMP in AM. Discussed Condition with: Patient Myron Woodward MD Oct 18, 2016 06:49
[2016-10-18 06:54] LABS: ALKALINE PHOSPHATASE 133 U/L (45-117); ALT (GPT) 126 U/L (12-78); ANION GAP 8 MEQ/L (5-15); AST (GOT) 32 U/L (15-37); BICARBONATE 31.9 MEQ/L (21.0-32.0); BLOOD UREA NITROGEN 8 MG/DL (7-18); CHLORIDE 100 MEQ/L (98-107); GLOMERULAR FILTRATION RATE 122 ML/MIN (>89); POTASSIUM 3.7 MEQ/L (3.5-5.1); SODIUM (NA) 140 MEQ/L (136-145); TOTAL BILIRUBIN ADULT 0.3 MG/DL (0.2-1.0)
[2016-10-18 07:09] LABS: AUTOMATED NEUTROPHIL # 6.1 TH/MM3 (1.8-7.7); BASOPHIL % 0.4 % (0.0-2.0); EOSINOPHIL % 0.2 % (0.0-4.0); HEMATOCRIT 29.4 % (39.0-51.0); LYMPH % 11.9 % (9.0-44.0); LYMPHOCYTE # 0.9 TH/MM3 (1.0-4.8); MEAN CELL VOLUME 78.3 FL (80.0-100.0); MEAN CORPUSCULAR HEMOGLOBIN 25.4 PG (27.0-34.0); MEAN CORPUSCULAR HGB CONC 32.5 % (32.0-36.0); MONO % 7.7 % (0.0-8.0); NEUT % 79.8 % (16.0-70.0); PLATELET COUNT 356 TH/MM3 (150-450); RED BLOOD COUNT 3.76 MIL/MM3 (4.50-5.90); RED CELL DISTRIBUTION WIDTH 23.5 % (11.6-17.2); WHITE BLOOD COUNT 7.7 TH/MM3 (4.0-11.0)
[2016-10-18 07:21] LABS: HEMO FLAGS AUTO DIFF
[2016-10-18] MEDS: INSULIN ASPART SUPPLEMENTAL SCALE SQ SCH ×4 (07:57→20:36)
[2016-10-18 08:13] LABS: CORRECTED NUCLEATED RBC 2 /100 WBC (0-0); METAMYELOCYTES 1 % (0-1); MYELOCYTES 1 % (0-0); NEUTROPHIL # MANUAL DIFF 5.6 TH/MM3 (1.8-7.7); PLATELET ESTIMATE SMEAR NORMAL (NORMAL); PLATELET MORPHOLOGY NORMAL (NORMAL); POLYS (SEG NEUTROPHILS) 71 % (16-70); SCAN/DIFF FINAL DIFF MANUAL; WBC DIFF SAMPLE 100
[2016-10-18 08:14] LABS: KERATOCYTES OCC (NORMAL)
[2016-10-18] MEDS: BUDESONIDE-FORMOTEROL 160/4.5 MCG INHALER INH SCH ×2 (10:11→20:38)
[2016-10-18] MEDS: FLUCONAZOLE 200 MG TAB PO SCH (10:12)
[2016-10-18] MEDS: PANTOPRAZOLE SOD 40 MG DELAYED RELEASE TAB PO SCH (10:12)
[2016-10-18] MEDS: LORazepam 0.5 MG TAB PO SCH ×2 (10:12→20:38)
[2016-10-18] MEDS: predniSONE 20 MG TAB PO SCH ×2 (10:12→20:38)
[2016-10-18] MEDS: DILTIAZEM-CD 180 MG CAP ER PO SCH (10:13)
[2016-10-18] MEDS: POTASSIUM CHLORIDE 10 MEQ CONTROLLED RELEASE TAB PO SCH ×2 (10:13→20:39)
[2016-10-18] MEDS: SUCRALFATE 1 GM TAB PO SCH ×3 (10:13→17:15)
[2016-10-18] MEDS: traMADol HCL 50 MG TAB PO PRN ×2 (10:13→22:47)
[2016-10-18 10:36] LABS: INTERNATIONAL NORMALIZED RATIO 2.4 RATIO; PROTHROMBIN TIME - PATIENT 28.1 SEC (9.8-11.6)
[2016-10-18] MEDS: PROMETHAZINE/CODEINE 6.25 MG/10 MG/5 ML CUP PO PRN (12:33)
[2016-10-18] MEDS ORDERED: WARFARIN SOD 2 MG TAB PO SCH (16:00)
[2016-10-18] MEDS: MICAFUNGIN INJ 150 MG in SODIUM CHLORIDE 0.9% INJ 100 ML IV SCH (17:15)
[2016-10-18] MEDS: INSULIN DETEMIR 100 UNITS/ML VIAL SQ SCH (20:36)
[2016-10-18] MEDS: ATORVASTATIN 20 MG TAB PO SCH (20:39)
[2016-10-18] MEDS: MONTELUKAST SODIUM 10 MG TAB PO SCH (20:39)
[2016-10-19] VITALS (8 sets, daily range): BP systolic 121–148; BP diastolic 19–97; PULSE 97–115; RESP 18–19; TEMP 96.5–97.2; O2SAT 96–99
[2016-10-19] MEDS: RESP: ALBUTEROL 2.5 MG/IPRATROPIUM 0.5 MG NEB (SCH) NEB ×6 (00:47→21:29)
[2016-10-19] MEDS: oxyCODONE HCL 20 MG CONTROLLED RELEASE TAB PO SCH ×2 (05:33→17:21)
[2016-10-19] MEDS: INSULIN ASPART SUPPLEMENTAL SCALE SQ SCH ×4 (05:38→21:15)
[2016-10-19 07:57] LABS: AUTOMATED NEUTROPHIL # 6.2 TH/MM3 (1.8-7.7); BASOPHIL % 0.3 % (0.0-2.0); EOSINOPHIL % 0.3 % (0.0-4.0); HEMATOCRIT 27.7 % (39.0-51.0); LYMPH % 8.5 % (9.0-44.0); LYMPHOCYTE # 0.6 TH/MM3 (1.0-4.8); MEAN CORPUSCULAR HGB CONC 32.1 % (32.0-36.0); MONO % 6.5 % (0.0-8.0); NEUT % 84.4 % (16.0-70.0); PLATELET COUNT 351 TH/MM3 (150-450); RED BLOOD COUNT 3.55 MIL/MM3 (4.50-5.90); RED CELL DISTRIBUTION WIDTH 23.2 % (11.6-17.2); WHITE BLOOD COUNT 7.4 TH/MM3 (4.0-11.0)
--- NOTE | 2016-10-19 07:59 | PD.ORT.PN ---
Subjective Post Op Day #: 10 weeks Pain Scale: no pain hip Subjective Remarks waiting for to DC me,. hip is 'good'. Range of Motion Reasonably good ROM AROM ,without pain Objective Vitals Vital Signs Date Time Temp Pulse Resp B/P Pulse Ox O2 Delivery O2 Flow Rate FiO2 10/19/16 00:49 97 Nasal Cannula 3.00 10/19/16 00:00 97.2 101 18 129/87 97 10/18/16 21:42 Nasal Cannula 2.00 10/18/16 20:00 97.5 112 20 136/88 96 10/18/16 17:13 96.7 109 16 136/88 98 10/18/16 16:07 97 Nasal Cannula 2.00 10/18/16 12:26 Nasal Cannula 2.00 10/18/16 12:00 96.9 113 19 136/92 98 10/18/16 10:11 Nasal Cannula 2.00 10/18/16 08:34 98 Nasal Cannula 2.00 10/18/16 08:00 96.6 97 18 140/93 99 I/O 10/18/16 10/18/16 10/18/16 10/19/16 10/19/16 10/19/16 07:00 15:00 23:00 07:00 15:00 23:00 Intake Total 1080 ml 480 ml 240 ml Output Total 1725 ml 800 ml 1500 ml Balance -645 ml -320 ml -1260 ml Intake Oral 1080 ml 480 ml 240 ml Output Urine Total 1725 ml 800 ml 1500 ml # Voids 4 3 # Bowel Movements 0 1 Result Diagram: 10/18/16 0524 10/18/16 0524 Other Results Laboratory Tests Test 10/18/16 10:05 Prothrombin Time 28.1 SEC (9.8-11.6) Prothromb Time International 2.4 RATIO Ratio Imaging Last 24 hours Impressions Hip MRI 10/02/16 0000 Signed Impressions: Service Date/Time: Sunday, October 02, 2016 09:13 - CONCLUSION: 12 cm collection in the right hip and buttock region, likely hematoma/seroma. The lesion could certainly be drained or sampled without difficulty under CT guidance. Adin Guillermo MD Objective Remarks Hip continues to look better. No redness, scar maturing , and no pain on moving around The induration is much lesser. Assessment & Plan Assessment and Plan Orthopedically stable DC with antifungals PO anfd IV To see me 2 weeks post discharge. First time in weeks he has said ' hip is good' Suggestions to PCP and ER : please do not order scans on right hip without consulting Ortho, in the likelyhood he will return to ER with asthma (and as always, also C/O hip pain.) Shaan Lindo MD Oct 19, 2016 07:59
[2016-10-19 08:01] LABS: INTERNATIONAL NORMALIZED RATIO 1.8 RATIO; PROTHROMBIN TIME - PATIENT 20.5 SEC (9.8-11.6)
[2016-10-19 08:07] LABS: HEMO FLAGS AUTO DIFF
[2016-10-19 08:11] LABS: ALKALINE PHOSPHATASE 120 U/L (45-117); ALT (GPT) 114 U/L (12-78); ANION GAP 8 MEQ/L (5-15); AST (GOT) 26 U/L (15-37); BICARBONATE 28.8 MEQ/L (21.0-32.0); BLOOD UREA NITROGEN 11 MG/DL (7-18); CHLORIDE 101 MEQ/L (98-107); GLOMERULAR FILTRATION RATE 111 ML/MIN (>89); POTASSIUM 3.8 MEQ/L (3.5-5.1); SODIUM (NA) 138 MEQ/L (136-145); TOTAL BILIRUBIN ADULT 0.3 MG/DL (0.2-1.0)
--- NOTE | 2016-10-19 08:45 | HHI.PR ---
Subjective History of Present Illness Patient have sever wheezing not able to walk because of SOB/ Wheezing.. Right hip pain better. INR 1.7 . restart coumadin 2 mg PO Daily. Leg edema Start Lasix 40 mg IV BID. .. high LFTs monitoring DC Plan soon when SOB/ Wheezing better. Review of Systems Constitutional Constitutional: Fatigue, Weakness Pulmonary Respiratory: Shortness of Breath, Wheezing Musculoskeletal MS Remarks Right Hip pain/ swelling. Integumentary Skin Remarks right hip bruise. Vitals/Results Intake & Output 10/18/16 10/18/16 10/19/16 15:00 23:00 07:00 Intake Total 480 ml 240 ml Output Total 800 ml 1500 ml Balance -320 ml -1260 ml Intake Oral 480 ml 240 ml Output Urine Total 800 ml 1500 ml # Voids 4 3 # Bowel Movements 1 Vital Signs Vital Signs Date Time Temp Pulse Resp B/P Pulse Ox O2 Delivery O2 Flow Rate FiO2 10/19/16 08:00 97.0 103 19 148/97 99 10/19/16 07:54 98 Nasal Cannula 1.50 10/19/16 00:49 97 Nasal Cannula 3.00 10/19/16 00:00 97.2 101 18 129/87 97 10/18/16 21:42 Nasal Cannula 2.00 10/18/16 20:00 97.5 112 20 136/88 96 10/18/16 17:13 96.7 109 16 136/88 98 10/18/16 16:07 97 Nasal Cannula 2.00 10/18/16 12:26 Nasal Cannula 2.00 10/18/16 12:00 96.9 113 19 136/92 98 10/18/16 10:11 Nasal Cannula 2.00 CBC/BMP: 10/19/16 0720 10/19/16 0720 Lab Results Laboratory Tests Test 10/18/16 10/19/16 10:05 07:20 Prothrombin Time 28.1 SEC 20.5 SEC Prothromb Time International 2.4 RATIO 1.8 RATIO Ratio White Blood Count 7.4 TH/MM3 Red Blood Count 3.55 MIL/MM3 Hemoglobin 8.9 GM/DL Hematocrit 27.7 % Mean Corpuscular Volume 78.0 FL Mean Corpuscular Hemoglobin 25.0 PG Mean Corpuscular Hemoglobin 32.1 % Concent Red Cell Distribution Width 23.2 % Platelet Count 351 TH/MM3 Mean Platelet Volume 6.8 FL Neutrophils (%) (Auto) 84.4 % Lymphocytes (%) (Auto) 8.5 % Monocytes (%) (Auto) 6.5 % Eosinophils (%) (Auto) 0.3 % Basophils (%) (Auto) 0.3 % Neutrophils # (Auto) 6.2 TH/MM3 Lymphocytes # (Auto) 0.6 TH/MM3 Monocytes # (Auto) 0.5 TH/MM3 Eosinophils # (Auto) 0.0 TH/MM3 Basophils # (Auto) 0.0 TH/MM3 CBC Comment AUTO DIFF Sodium Level 138 MEQ/L Potassium Level 3.8 MEQ/L Chloride Level 101 MEQ/L Carbon Dioxide Level 28.8 MEQ/L Anion Gap 8 MEQ/L Blood Urea Nitrogen 11 MG/DL Creatinine 0.74 MG/DL Estimat Glomerular Filtration 111 ML/MIN Rate Random Glucose 238 MG/DL Calcium Level 8.7 MG/DL Total Bilirubin 0.3 MG/DL Aspartate Amino Transf 26 U/L (AST/SGOT) Alanine Aminotransferase 114 U/L (ALT/SGPT) Alkaline Phosphatase 120 U/L Total Protein 5.8 GM/DL Albumin 3.4 GM/DL Physical Exam General General Appearance: Well Developed, No Acute Distress, Comfortable Eyes Eye Exam: Pupils Equal, Pupils Reactive Throat Throat Exam: Oral Mucosa [place] & Moist Neck Neck Exam: Neck Supple, Trachea Midline Pulmonary Resp Exam: Diminished Breath Sounds Resp Remarks Sever Bilateral Wheezing. Cardiology CV Exam: Regular, Normal Sinus Rhythm Gastrointestinal/Abdomen GI Exam: Soft, Non-Tender, Bowel Sounds Present, Non-Distended Musculoskeletal MS Exam: Normal Tone Integumentary Skin Exam: Warm, Dry Extremeties Extremities Exam: No Edema Neurologic Neuro Exam: Alert, Awake, Oriented, Speech Clear, Moving All Extremities, Turf Farmer Equal, No Focal Deficits Psychiatric Psych Exam: Appropriate Responses VTE Prophylaxis VTE Prophylaxis Meds: Coumadin PUD Prophylasis PUD Prophylaxis: Protonix Assessment/Plan Assessment/Plan ASSESSMENT AND PLAN: 1. Asthma exacerbation-continue oxygen, PO Prednisone, appreciate pulm input, Xopenex and Atrovent Apply humidifier to oxygen 2. History for right hip infection with fungus. The patient is on Diflucan + Micafungin.. He has right hip swelling and pain. Right hip ultrasound noted orthopedic input noted s/p needle drainage of hematoma right hip, per orthopedic not getting right hip hardware removed. S/P MRI Right hip shows 12 cm hematoma/seroma. s/p needle drainage... S/P CT Pelvis show no more hematoma collection 3. Septic right hip. The patient is on Diflucan + Micafungin... Infectious disease input noted.. Will monitor. 4. History of chronic obstructive pulmonary disease. Continue home medications. 5. History of depression. Continue home medications. 6. History of anxiety. Continue with Ativan 0.5 milligrams twice a day. 7. Right hip pain. The patient on tramadol and [place] and also Dilaudid 0.5 milligrams p.o. q. 6 hours PRN pain. 8. History of hyperlipidemia. Continue on Lipitor 20 milligrams p.o. daily. 9. History of pulmonary embolism and DVT right leg. INR 1.7 . restart coumadin 2 mg PO Daily .Will monitor INR daily. 10. High blood sugar continue with ISS + Levemir 20 units subcut. HS. monitoring blood glucose 11. Leg edema Start Lasix 40 mg IV BID DVT prophylaxis. . INR 1.7 . restart coumadin 2 mg PO Daily GI prophylaxis. Protonix 40 milligrams p.o. daily/ Carafate 1 gram p.o. three times a day. DC plan in progress, IV abx being arranged for OP . Check CBC with diff CMP in AM. Discussed Condition with: Patient Myron Woodward MD Oct 19, 2016 08:45
[2016-10-19] MEDS: ACETAMINOPHEN/HYDROcodone 325 MG/7.5 MG TAB PO PRN ×2 (09:12→19:01)
[2016-10-19] MEDS: POTASSIUM CHLORIDE 10 MEQ CONTROLLED RELEASE TAB PO SCH ×2 (09:13→21:14)
[2016-10-19] MEDS: BUDESONIDE-FORMOTEROL 160/4.5 MCG INHALER INH SCH ×2 (09:15→21:13)
[2016-10-19] MEDS: PANTOPRAZOLE SOD 40 MG DELAYED RELEASE TAB PO SCH (09:15)
[2016-10-19] MEDS: SUCRALFATE 1 GM TAB PO SCH ×3 (09:15→17:21)
[2016-10-19] MEDS: predniSONE 20 MG TAB PO SCH ×2 (09:16→21:14)
[2016-10-19] MEDS: LORazepam 0.5 MG TAB PO SCH ×2 (09:16→21:15)
[2016-10-19] MEDS: DILTIAZEM-CD 180 MG CAP ER PO SCH (09:16)
[2016-10-19] MEDS: FLUCONAZOLE 200 MG TAB PO SCH (09:16)
[2016-10-19 09:53] LABS: BANDS 5 % (0-6); BLASTS 1 % (0-0); EOSINOPHILS 1 % (0-4); KERATOCYTES OCC (NORMAL); METAMYELOCYTES 1 % (0-1); MYELOCYTES 4 % (0-0); NEUTROPHIL # MANUAL DIFF 5.8 TH/MM3 (1.8-7.7); PLATELET ESTIMATE SMEAR NORMAL (NORMAL); PLATELET MORPHOLOGY NORMAL (NORMAL); POLYS (SEG NEUTROPHILS) 68 % (16-70); SCAN/DIFF FINAL DIFF MANUAL; WBC DIFF SAMPLE 100
[2016-10-19 11:12] LABS: INTERNATIONAL NORMALIZED RATIO 1.7 RATIO; PROTHROMBIN TIME - PATIENT 19.4 SEC (9.8-11.6)
[2016-10-19] MEDS: PROMETHAZINE/CODEINE 6.25 MG/10 MG/5 ML CUP PO PRN (12:53)
[2016-10-19] MEDS: MICAFUNGIN INJ 150 MG in SODIUM CHLORIDE 0.9% INJ 100 ML IV SCH (16:16)
[2016-10-19] MEDS ORDERED: DO NOT ADM ANY ANTICOAGULANT DRUGS XX PRN (18:00)
[2016-10-19] MEDS: FUROSEMIDE 40 MG/4 ML VIAL IV PUSH SCH (18:31)
[2016-10-19] MEDS: MONTELUKAST SODIUM 10 MG TAB PO SCH (21:00)
[2016-10-19] MEDS: ATORVASTATIN 20 MG TAB PO SCH (21:14)
[2016-10-19] MEDS: INSULIN DETEMIR 100 UNITS/ML VIAL SQ SCH (21:15)
[2016-10-20] VITALS: BP 133/94; PULSE 103; RESP 16; TEMP 97.8; O2SAT 97
[2016-10-20] MEDS: RESP: ALBUTEROL 2.5 MG/IPRATROPIUM 0.5 MG NEB (SCH) NEB ×7 (00:19→23:51)
[2016-10-20] MEDS: oxyCODONE HCL 20 MG CONTROLLED RELEASE TAB PO SCH ×2 (05:11→17:22)
[2016-10-20] MEDS: INSULIN ASPART SUPPLEMENTAL SCALE SQ SCH ×4 (06:16→21:33)
[2016-10-20 07:39] VITALS: BP 140/91; PULSE 101; RESP 18; TEMP 97.2; O2SAT 97
[2016-10-20 07:43] LABS: AUTOMATED NEUTROPHIL # 7.4 TH/MM3 (1.8-7.7); BASOPHIL % 0.2 % (0.0-2.0); EOSINOPHIL % 0.1 % (0.0-4.0); HEMATOCRIT 29.9 % (39.0-51.0); LYMPH % 8.2 % (9.0-44.0); LYMPHOCYTE # 0.7 TH/MM3 (1.0-4.8); MEAN CELL VOLUME 79.2 FL (80.0-100.0); MEAN CORPUSCULAR HEMOGLOBIN 24.6 PG (27.0-34.0); MONO % 6.1 % (0.0-8.0); NEUT % 85.4 % (16.0-70.0); PLATELET COUNT 384 TH/MM3 (150-450); RED BLOOD COUNT 3.78 MIL/MM3 (4.50-5.90); RED CELL DISTRIBUTION WIDTH 23.3 % (11.6-17.2); WHITE BLOOD COUNT 8.6 TH/MM3 (4.0-11.0)
[2016-10-20 07:49] LABS: HEMO FLAGS AUTO DIFF
[2016-10-20 07:51] LABS: INTERNATIONAL NORMALIZED RATIO 1.4 RATIO; PROTHROMBIN TIME - PATIENT 15.7 SEC (9.8-11.6)
[2016-10-20] MEDS: FUROSEMIDE 40 MG/4 ML VIAL IV PUSH SCH ×2 (08:16→17:23)
[2016-10-20] MEDS: SUCRALFATE 1 GM TAB PO SCH ×3 (08:17→17:22)
[2016-10-20] MEDS: PANTOPRAZOLE SOD 40 MG DELAYED RELEASE TAB PO SCH (08:17)
[2016-10-20] MEDS: FLUCONAZOLE 200 MG TAB PO SCH (08:17)
[2016-10-20] MEDS: LORazepam 0.5 MG TAB PO SCH ×2 (08:17→21:32)
[2016-10-20] MEDS: predniSONE 20 MG TAB PO SCH ×2 (08:18→21:32)
[2016-10-20] MEDS: BUDESONIDE-FORMOTEROL 160/4.5 MCG INHALER INH SCH ×2 (08:18→21:33)
[2016-10-20] MEDS: POTASSIUM CHLORIDE 10 MEQ CONTROLLED RELEASE TAB PO SCH ×2 (08:18→21:32)
[2016-10-20] MEDS: DILTIAZEM-CD 180 MG CAP ER PO SCH (08:18)
[2016-10-20 08:20] LABS: ALKALINE PHOSPHATASE 129 U/L (45-117); ALT (GPT) 133 U/L (12-78); ANION GAP 10 MEQ/L (5-15); AST (GOT) 39 U/L (15-37); BLOOD UREA NITROGEN 12 MG/DL (7-18); CHLORIDE 99 MEQ/L (98-107); GLOMERULAR FILTRATION RATE 84 ML/MIN (>89); POTASSIUM 3.5 MEQ/L (3.5-5.1); SODIUM (NA) 136 MEQ/L (136-145); TOTAL BILIRUBIN ADULT 0.3 MG/DL (0.2-1.0)
[2016-10-20 08:46] VITALS: O2SAT 96
--- NOTE | 2016-10-20 08:54 | HHI.PR ---
Subjective History of Present Illness Patient have sever wheezing not able to walk because of SOB/ Wheezing.. Right hip pain better. INR 1.4 . on coumadin 2 mg PO Daily. Leg edema on Lasix 40 mg IV BID...better .. high LFTs monitoring c/o burning/ painful urination check UA.. Review of Systems Constitutional Constitutional: Fatigue, Weakness Pulmonary Respiratory: Shortness of Breath, Wheezing Musculoskeletal MS Remarks Right Hip pain/ swelling. Integumentary Skin Remarks right hip bruise. Vitals/Results Intake & Output 10/19/16 10/19/16 10/20/16 15:00 23:00 07:00 Intake Total 1200 ml 1200 ml 1920 ml Output Total 800 ml 1575 ml Balance 1200 ml 400 ml 345 ml Intake Oral 1200 ml 1200 ml 1920 ml Output Urine Total 800 ml 1575 ml # Voids 4 # Bowel Movements 1 0 Vital Signs Vital Signs Date Time Temp Pulse Resp B/P Pulse Ox O2 Delivery O2 Flow Rate FiO2 10/20/16 08:43 97 Nasal Cannula 2.00 10/20/16 07:39 97.2 101 18 140/91 97 10/20/16 00:00 97.8 103 16 133/94 97 10/19/16 21:31 97 Nasal Cannula 2.00 10/19/16 20:00 96 Nasal Cannula 2.00 10/19/16 20:00 96.5 115 18 127/19 96 10/19/16 16:00 96.8 109 19 121/90 98 10/19/16 12:02 96.7 97 19 144/90 98 10/19/16 09:28 99 Nasal Cannula 2.00 CBC/BMP: 10/20/16 0655 10/20/16 0655 Lab Results Laboratory Tests Test 10/19/16 10/20/16 10:44 06:55 Prothrombin Time 19.4 SEC 15.7 SEC Prothromb Time International 1.7 RATIO 1.4 RATIO Ratio White Blood Count 8.6 TH/MM3 Red Blood Count 3.78 MIL/MM3 Hemoglobin 9.3 GM/DL Hematocrit 29.9 % Mean Corpuscular Volume 79.2 FL Mean Corpuscular Hemoglobin 24.6 PG Mean Corpuscular Hemoglobin 31.0 % Concent Red Cell Distribution Width 23.3 % Platelet Count 384 TH/MM3 Mean Platelet Volume 6.8 FL Neutrophils (%) (Auto) 85.4 % Lymphocytes (%) (Auto) 8.2 % Monocytes (%) (Auto) 6.1 % Eosinophils (%) (Auto) 0.1 % Basophils (%) (Auto) 0.2 % Neutrophils # (Auto) 7.4 TH/MM3 Lymphocytes # (Auto) 0.7 TH/MM3 Monocytes # (Auto) 0.5 TH/MM3 Eosinophils # (Auto) 0.0 TH/MM3 Basophils # (Auto) 0.0 TH/MM3 CBC Comment AUTO DIFF Sodium Level 136 MEQ/L Potassium Level 3.5 MEQ/L Chloride Level 99 MEQ/L Carbon Dioxide Level 27.0 MEQ/L Anion Gap 10 MEQ/L Blood Urea Nitrogen 12 MG/DL Creatinine 0.94 MG/DL Estimat Glomerular Filtration 84 ML/MIN Rate Random Glucose 374 MG/DL Calcium Level 8.8 MG/DL Total Bilirubin 0.3 MG/DL Aspartate Amino Transf 39 U/L (AST/SGOT) Alanine Aminotransferase 133 U/L (ALT/SGPT) Alkaline Phosphatase 129 U/L Total Protein 6.0 GM/DL Albumin 3.5 GM/DL Physical Exam General General Appearance: Well Developed, No Acute Distress, Comfortable Eyes Eye Exam: Pupils Equal, Pupils Reactive Throat Throat Exam: Oral Mucosa [place] & Moist Neck Neck Exam: Neck Supple, Trachea Midline Pulmonary Resp Exam: Diminished Breath Sounds Resp Remarks Sever Bilateral Wheezing. Cardiology CV Exam: Regular, Normal Sinus Rhythm Gastrointestinal/Abdomen GI Exam: Soft, Non-Tender, Bowel Sounds Present, Non-Distended Musculoskeletal MS Exam: Normal Tone Integumentary Skin Exam: Warm, Dry Extremeties Extremities Exam: No Edema Neurologic Neuro Exam: Alert, Awake, Oriented, Speech Clear, Moving All Extremities, Gaming Host Equal, No Focal Deficits Psychiatric Psych Exam: Appropriate Responses VTE Prophylaxis VTE Prophylaxis Meds: Coumadin PUD Prophylasis PUD Prophylaxis: Protonix Assessment/Plan Assessment/Plan ASSESSMENT AND PLAN: 1. Asthma exacerbation-continue oxygen, PO Prednisone, appreciate pulm input, Xopenex and Atrovent Apply humidifier to oxygen 2. History for right hip infection with fungus. The patient is on Diflucan + Micafungin.. He has right hip swelling and pain. Right hip ultrasound noted orthopedic input noted s/p needle drainage of hematoma right hip, per orthopedic not getting right hip hardware removed. S/P MRI Right hip shows 12 cm hematoma/seroma. s/p needle drainage... S/P CT Pelvis show no more hematoma collection 3. Septic right hip. The patient is on Diflucan + Micafungin... Infectious disease input noted.. Will monitor. 4. History of chronic obstructive pulmonary disease. Continue home medications. 5. History of depression. Continue home medications. 6. History of anxiety. Continue with Ativan 0.5 milligrams twice a day. 7. Right hip pain. The patient on tramadol and [place] and also Dilaudid 0.5 milligrams p.o. q. 6 hours PRN pain. 8. History of hyperlipidemia. Continue on Lipitor 20 milligrams p.o. daily. 9. History of pulmonary embolism and DVT right leg. INR 1.4 . on coumadin 2 mg PO Daily .Will monitor INR daily. 10. High blood sugar continue with ISS + Levemir 20 units subcut. HS. monitoring blood glucose 11. Leg edema on Lasix 40 mg IV BID DVT prophylaxis. . INR 1.4 . restart coumadin 2 mg PO Daily GI prophylaxis. Protonix 40 milligrams p.o. daily/ Carafate 1 gram p.o. three times a day. DC plan in progress, IV abx being arranged for OP . Check CBC with diff CMP INR in AM. Discussed Condition with: Patient Myron Woodward MD Oct 20, 2016 08:54
[2016-10-20 09:30] LABS: CORRECTED NUCLEATED RBC 3 /100 WBC (0-0); METAMYELOCYTES 1 % (0-1); MYELOCYTES 2 % (0-0); NEUTROPHIL # MANUAL DIFF 7.7 TH/MM3 (1.8-7.7); PLATELET ESTIMATE SMEAR NORMAL (NORMAL); POLYS (SEG NEUTROPHILS) 86 % (16-70); SCAN/DIFF FINAL DIFF MANUAL; WBC DIFF SAMPLE 100
[2016-10-20 09:31] LABS: PLATELET MORPHOLOGY NORMAL (NORMAL)
[2016-10-20 09:32] LABS: KERATOCYTES OCC (NORMAL); OVALOCYTES 1+ (NORMAL)
[2016-10-20 11:21] LABS: BLOOD, URINE NEG (NEG); COMMENT (UR) CULT NOT INDICATED; CULTURE IF INDICATED CULT NOT INDICATED; GLUCOSE,URINE NEG (NEG); KETONE, URINE NEG (NEG); NITRITE,URINE NEG (NEG); SQUAMOUS EPITHELIAL CELL URINE <1 /hpf (0-5); URINE COLOR LIGHT-YELLOW (YELLW/STRAW)
[2016-10-20 11:25] VITALS: BP 131/94; PULSE 99; RESP 18; TEMP 96.7; O2SAT 94
[2016-10-20] MEDS: ACETAMINOPHEN/HYDROcodone 325 MG/7.5 MG TAB PO PRN (11:54)
[2016-10-20 13:10] LABS: INTERNATIONAL NORMALIZED RATIO 1.4 RATIO; PROTHROMBIN TIME - PATIENT 15.2 SEC (9.8-11.6)
[2016-10-20] MEDS: traMADol HCL 50 MG TAB PO PRN (15:49)
[2016-10-20] MEDS: WARFARIN SOD 2 MG TAB PO SCH (15:50)
[2016-10-20 16:00] VITALS: BP 126/91; PULSE 107; RESP 18; TEMP 96.9; O2SAT 97
[2016-10-20] MEDS: MICAFUNGIN INJ 150 MG in SODIUM CHLORIDE 0.9% INJ 100 ML IV SCH (17:22)
[2016-10-20 19:59] VITALS: BP 124/84; PULSE 110; RESP 18; TEMP 96.2; O2SAT 97
[2016-10-20] MEDS: ONDANSETRON HCL 4 MG/2 ML VIAL IV PUSH PRN (20:24)
[2016-10-20] MEDS: MONTELUKAST SODIUM 10 MG TAB PO SCH (21:00)
[2016-10-20] MEDS: ATORVASTATIN 20 MG TAB PO SCH (21:32)
[2016-10-20] MEDS: INSULIN DETEMIR 100 UNITS/ML VIAL SQ SCH (21:33)
[2016-10-21] VITALS (7 sets, daily range): BP systolic 129–151; BP diastolic 87–95; PULSE 97–109; RESP 18–19; TEMP 96.2–97.4; O2SAT 95–98
[2016-10-21] MEDS: traMADol HCL 50 MG TAB PO PRN ×2 (00:19→13:46)
[2016-10-21] MEDS: RESP: ALBUTEROL 2.5 MG/IPRATROPIUM 0.5 MG NEB (SCH) NEB ×4 (03:49→21:56)
[2016-10-21] MEDS: INSULIN ASPART SUPPLEMENTAL SCALE SQ SCH ×5 (06:04→16:25)
[2016-10-21] MEDS: oxyCODONE HCL 20 MG CONTROLLED RELEASE TAB PO SCH ×2 (06:04→17:41)
[2016-10-21 07:18] LABS: AUTOMATED NEUTROPHIL # 7.2 TH/MM3 (1.8-7.7); BASOPHIL % 0.3 % (0.0-2.0); EOSINOPHIL % 0.5 % (0.0-4.0); HEMATOCRIT 29.4 % (39.0-51.0); LYMPH % 8.6 % (9.0-44.0); LYMPHOCYTE # 0.7 TH/MM3 (1.0-4.8); MEAN CELL VOLUME 77.4 FL (80.0-100.0); MEAN CORPUSCULAR HEMOGLOBIN 24.9 PG (27.0-34.0); MEAN CORPUSCULAR HGB CONC 32.2 % (32.0-36.0); MONO % 6.7 % (0.0-8.0); NEUT % 83.9 % (16.0-70.0); PLATELET COUNT 382 TH/MM3 (150-450); RED BLOOD COUNT 3.79 MIL/MM3 (4.50-5.90); RED CELL DISTRIBUTION WIDTH 23.6 % (11.6-17.2); WHITE BLOOD COUNT 8.5 TH/MM3 (4.0-11.0)
[2016-10-21 07:19] LABS: INTERNATIONAL NORMALIZED RATIO 1.3 RATIO; PROTHROMBIN TIME - PATIENT 14.7 SEC (9.8-11.6)
[2016-10-21 07:29] LABS: HEMO FLAGS AUTO DIFF
[2016-10-21] MEDS: FLUCONAZOLE 200 MG TAB PO SCH (07:36)
[2016-10-21] MEDS: POTASSIUM CHLORIDE 10 MEQ CONTROLLED RELEASE TAB PO SCH ×2 (07:37→20:11)
[2016-10-21] MEDS: predniSONE 20 MG TAB PO SCH ×2 (07:37→20:11)
[2016-10-21] MEDS: BUDESONIDE-FORMOTEROL 160/4.5 MCG INHALER INH SCH ×2 (07:37→21:07)
[2016-10-21] MEDS: SUCRALFATE 1 GM TAB PO SCH ×3 (07:37→17:40)
[2016-10-21] MEDS: LORazepam 0.5 MG TAB PO SCH ×2 (07:37→20:11)
[2016-10-21] MEDS: PANTOPRAZOLE SOD 40 MG DELAYED RELEASE TAB PO SCH (07:37)
[2016-10-21] MEDS: DILTIAZEM-CD 180 MG CAP ER PO SCH (07:37)
[2016-10-21] MEDS: FUROSEMIDE 40 MG/4 ML VIAL IV PUSH SCH ×2 (07:39→17:42)
[2016-10-21 07:40] LABS: ALKALINE PHOSPHATASE 118 U/L (45-117); ALT (GPT) 144 U/L (12-78); ANION GAP 9 MEQ/L (5-15); AST (GOT) 43 U/L (15-37); BICARBONATE 29.3 MEQ/L (21.0-32.0); BLOOD UREA NITROGEN 17 MG/DL (7-18); CHLORIDE 99 MEQ/L (98-107); GLOMERULAR FILTRATION RATE 109 ML/MIN (>89); POTASSIUM 3.8 MEQ/L (3.5-5.1); SODIUM (NA) 137 MEQ/L (136-145); TOTAL BILIRUBIN ADULT 0.4 MG/DL (0.2-1.0)
--- NOTE | 2016-10-21 08:13 | HHI.PR ---
Subjective History of Present Illness Patient have sever wheezing not able to walk because of SOB/ Wheezing.. Right hip pain better. INR 1.3 on coumadin 2 mg PO Daily. Leg edema on Lasix 40 mg IV BID...better .. high LFTs monitoring c/o burning/ painful urination check UA.within normal limits... Review of Systems Constitutional Constitutional: Fatigue, Weakness Pulmonary Respiratory: Shortness of Breath, Wheezing Musculoskeletal MS Remarks Right Hip pain/ swelling. Integumentary Skin Remarks right hip bruise. Vitals/Results Intake & Output 10/20/16 10/20/16 10/21/16 15:00 23:00 07:00 Intake Total 1200 ml 480 ml 480 ml Output Total 850 ml Balance 1200 ml 480 ml -370 ml Intake Oral 1200 ml 480 ml 480 ml Output Urine Total 850 ml # Voids 6 1 1 # Bowel Movements 3 0 0 Vital Signs Vital Signs Date Time Temp Pulse Resp B/P Pulse Ox O2 Delivery O2 Flow Rate FiO2 10/21/16 00:30 96.3 100 19 151/92 97 10/20/16 21:25 97 Nasal Cannula 3.00 10/20/16 19:59 96.2 110 18 124/84 97 10/20/16 19:50 Nasal Cannula 3.00 10/20/16 16:00 96.9 107 18 126/91 97 10/20/16 11:25 96.7 99 18 131/94 94 10/20/16 08:46 96 10/20/16 08:43 97 Nasal Cannula 2.00 CBC/BMP: 10/21/16 0540 10/21/16 0540 Lab Results Laboratory Tests Test 10/20/16 10/20/16 10/21/16 10:50 12:50 05:40 Urine Color LIGHT-YELLOW Urine Turbidity CLEAR Urine pH 7.0 Urine Specific [place] 1.005 Urine Protein NEG mg/dL Urine Glucose (UA) NEG mg/dL Urine Ketones NEG mg/dL Urine Occult Blood NEG Urine Nitrite NEG Urine Bilirubin NEG Urine Urobilinogen LESS THAN 2.0 MG/DL Urine Leukocyte Esterase NEG Urine RBC LESS THAN 1 /hpf Urine Squamous Epithelial <1 /hpf Cells Microscopic Urinalysis Comment CULT NOT INDICATED Prothrombin Time 15.2 SEC 14.7 SEC Prothromb Time International 1.4 RATIO 1.3 RATIO Ratio White Blood Count 8.5 TH/MM3 Red Blood Count 3.79 MIL/MM3 Hemoglobin 9.5 GM/DL Hematocrit 29.4 % Mean Corpuscular Volume 77.4 FL Mean Corpuscular Hemoglobin 24.9 PG Mean Corpuscular Hemoglobin 32.2 % Concent Red Cell Distribution Width 23.6 % Platelet Count 382 TH/MM3 Mean Platelet Volume 6.8 FL Neutrophils (%) (Auto) 83.9 % Lymphocytes (%) (Auto) 8.6 % Monocytes (%) (Auto) 6.7 % Eosinophils (%) (Auto) 0.5 % Basophils (%) (Auto) 0.3 % Neutrophils # (Auto) 7.2 TH/MM3 Lymphocytes # (Auto) 0.7 TH/MM3 Monocytes # (Auto) 0.6 TH/MM3 Eosinophils # (Auto) 0.0 TH/MM3 Basophils # (Auto) 0.0 TH/MM3 CBC Comment AUTO DIFF Sodium Level 137 MEQ/L Potassium Level 3.8 MEQ/L Chloride Level 99 MEQ/L Carbon Dioxide Level 29.3 MEQ/L Anion Gap 9 MEQ/L Blood Urea Nitrogen 17 MG/DL Creatinine 0.75 MG/DL Estimat Glomerular Filtration 109 ML/MIN Rate Random Glucose 186 MG/DL Calcium Level 9.2 MG/DL Total Bilirubin 0.4 MG/DL Aspartate Amino Transf 43 U/L (AST/SGOT) Alanine Aminotransferase 144 U/L (ALT/SGPT) Alkaline Phosphatase 118 U/L Total Protein 5.9 GM/DL Albumin 3.5 GM/DL Physical Exam General General Appearance: Well Developed, No Acute Distress, Comfortable Eyes Eye Exam: Pupils Equal, Pupils Reactive Throat Throat Exam: Oral Mucosa [place] & Moist Neck Neck Exam: Neck Supple, Trachea Midline Pulmonary Resp Exam: Diminished Breath Sounds Resp Remarks Sever Bilateral Wheezing. Cardiology CV Exam: Regular, Normal Sinus Rhythm Gastrointestinal/Abdomen GI Exam: Soft, Non-Tender, Bowel Sounds Present, Non-Distended Musculoskeletal MS Exam: Normal Tone Integumentary Skin Exam: Warm, Dry Extremeties Extremities Exam: No Edema Neurologic Neuro Exam: Alert, Awake, Oriented, Speech Clear, Moving All Extremities, Shank Paperer Equal, No Focal Deficits Psychiatric Psych Exam: Appropriate Responses VTE Prophylaxis VTE Prophylaxis Meds: Coumadin PUD Prophylasis PUD Prophylaxis: Protonix Assessment/Plan Assessment/Plan ASSESSMENT AND PLAN: 1. Asthma exacerbation-continue oxygen, PO Prednisone, appreciate pulm input, Xopenex and Atrovent Apply humidifier to oxygen 2. History for right hip infection with fungus. The patient is on Diflucan + Micafungin.. He has right hip swelling and pain. Right hip ultrasound noted orthopedic input noted s/p needle drainage of hematoma right hip, per orthopedic not getting right hip hardware removed. S/P MRI Right hip shows 12 cm hematoma/seroma. s/p needle drainage... S/P CT Pelvis show no more hematoma collection 3. Septic right hip. The patient is on Diflucan + Micafungin... Infectious disease input noted.. Will monitor. 4. History of chronic obstructive pulmonary disease. Continue home medications. 5. History of depression. Continue home medications. 6. History of anxiety. Continue with Ativan 0.5 milligrams twice a day. 7. Right hip pain. The patient on tramadol and [place] and also Dilaudid 0.5 milligrams p.o. q. 6 hours PRN pain. 8. History of hyperlipidemia. Continue on Lipitor 20 milligrams p.o. daily. 9. History of pulmonary embolism and DVT right leg. INR 1.3 . on coumadin 2 mg PO Daily .Will monitor INR daily. 10. High blood sugar continue with ISS + Levemir 20 units subcut. HS. monitoring blood glucose 11. Leg edema on Lasix 40 mg IV BID DVT prophylaxis. . INR 1.3 . on coumadin 2 mg PO Daily GI prophylaxis. Protonix 40 milligrams p.o. daily/ Carafate 1 gram p.o. three times a day. DC plan in progress, IV abx being arranged for OP . Check CBC with diff CMP INR in AM. Discussed Condition with: Patient Myron Woodward MD Oct 21, 2016 08:13
[2016-10-21 08:14] LABS: CORRECTED NUCLEATED RBC 2 /100 WBC (0-0); MYELOCYTES 3 % (0-0); NEUTROPHIL # MANUAL DIFF 7.1 TH/MM3 (1.8-7.7); POLYS (SEG NEUTROPHILS) 80 % (16-70); SCAN/DIFF FINAL DIFF MANUAL; WBC DIFF SAMPLE 100
[2016-10-21 08:15] LABS: ACANTHOCYTES OCC (NORMAL); OVALOCYTES 1+ (NORMAL); PLATELET ESTIMATE SMEAR NORMAL (NORMAL); PLATELET MORPHOLOGY NORMAL (NORMAL)
[2016-10-21 11:21] LABS: INTERNATIONAL NORMALIZED RATIO 1.3 RATIO; PROTHROMBIN TIME - PATIENT 14.7 SEC (9.8-11.6)
[2016-10-21] MEDS: RESP: ALBUTEROL 2.5 MG/IPRATROPIUM 0.5 MG NEB (PRN) NEB (11:54)
--- NOTE | 2016-10-21 15:29 | HHI.PR ---
Subjective Remarks no sob no fever or chill no cough or sputum Objective Vital Signs Date Time Temp Pulse Resp B/P Pulse Ox O2 Delivery O2 Flow Rate FiO2 10/21/16 11:07 96.2 107 18 139/90 95 10/21/16 08:19 97 Nasal Cannula 3.00 10/21/16 07:41 96.3 98 18 129/89 97 10/21/16 00:30 96.3 100 19 151/92 97 10/20/16 21:25 97 Nasal Cannula 3.00 10/20/16 19:59 96.2 110 18 124/84 97 10/20/16 19:50 Nasal Cannula 3.00 10/20/16 16:00 96.9 107 18 126/91 97 I/O 10/20/16 10/20/16 10/20/16 10/21/16 10/21/16 10/21/16 07:00 15:00 23:00 07:00 15:00 23:00 Intake Total 1920 ml 1200 ml 480 ml 480 ml Output Total 1575 ml 850 ml Balance 345 ml 1200 ml 480 ml -370 ml Intake Oral 1920 ml 1200 ml 480 ml 480 ml Output Urine Total 1575 ml 850 ml # Voids 6 1 1 # Bowel Movements 3 0 0 Result Diagram: 10/21/16 0540 10/21/16 0540 Objective Remarks GENERAL: SKIN: Warm and dry. HEAD: Atraumatic. Normocephalic. EYES: Pupils equal and round. No scleral icterus. No injection or drainage. ENT: No nasal bleeding or discharge. Mucous membranes pink and moist. NECK: Trachea midline. No JVD. CARDIOVASCULAR: Regular rate and rhythm. RESPIRATORY: No accessory muscle use. Clear to auscultation. Breath sounds equal bilaterally. GASTROINTESTINAL: Abdomen soft, non-tender, nondistended. Hepatic and splenic margins not palpable. MUSCULOSKELETAL: Extremities without clubbing, cyanosis, or edema. No obvious deformities. NEUROLOGICAL: Awake and alert. No obvious cranial nerve deficits. Motor grossly within normal limits. Five out of 5 muscle strength in the arms and legs. Normal speech. PSYCHIATRIC: Appropriate mood and affect; insight and judgment normal. Assessment and Plan Assessment and Plan pulm improving with occasional whheze DVT/PE ON COUMADIN ContINUE o2 THERAPY INCREASE ACTIVITY Mary Hernandez MD Oct 21, 2016 15:29
[2016-10-21] MEDS: WARFARIN SOD 2 MG TAB PO SCH (16:13)
[2016-10-21] MEDS: MICAFUNGIN INJ 150 MG in SODIUM CHLORIDE 0.9% INJ 100 ML IV SCH (18:32)
[2016-10-21] MEDS: MONTELUKAST SODIUM 10 MG TAB PO SCH (20:11)
[2016-10-21] MEDS: ATORVASTATIN 20 MG TAB PO SCH (20:11)
[2016-10-21] MEDS: ONDANSETRON HCL 4 MG/2 ML VIAL IV PUSH PRN (20:11)
[2016-10-21] MEDS: INSULIN DETEMIR 100 UNITS/ML VIAL SQ SCH (20:12)
[2016-10-22] VITALS (7 sets, daily range): BP systolic 121–149; BP diastolic 82–94; PULSE 98–124; RESP 17–18; TEMP 95.7–97.7; O2SAT 96–99
[2016-10-22] MEDS: ACETAMINOPHEN/HYDROcodone 325 MG/7.5 MG TAB PO PRN ×3 (00:19→17:48)
[2016-10-22] MEDS: RESP: ALBUTEROL 2.5 MG/IPRATROPIUM 0.5 MG NEB (SCH) NEB ×4 (01:20→20:00)
[2016-10-22] MEDS: oxyCODONE HCL 20 MG CONTROLLED RELEASE TAB PO SCH ×2 (05:10→17:47)
[2016-10-22] MEDS: POLYETHYLENE GLYCOL 17 GM PKG PO PRN (05:10)
[2016-10-22 05:33] LABS: INTERNATIONAL NORMALIZED RATIO 1.5 RATIO
[2016-10-22] MEDS: LORazepam 0.5 MG TAB PO SCH ×2 (09:27→21:39)
[2016-10-22] MEDS: PANTOPRAZOLE SOD 40 MG DELAYED RELEASE TAB PO SCH (09:27)
[2016-10-22] MEDS: FLUCONAZOLE 200 MG TAB PO SCH (09:27)
[2016-10-22] MEDS: SUCRALFATE 1 GM TAB PO SCH ×3 (09:27→17:47)
[2016-10-22] MEDS: predniSONE 20 MG TAB PO SCH ×2 (09:27→21:39)
[2016-10-22] MEDS: DILTIAZEM-CD 180 MG CAP ER PO SCH (09:27)
[2016-10-22] MEDS: POTASSIUM CHLORIDE 10 MEQ CONTROLLED RELEASE TAB PO SCH ×2 (09:27→21:39)
[2016-10-22] MEDS: PROMETHAZINE/CODEINE 6.25 MG/10 MG/5 ML CUP PO PRN (09:28)
[2016-10-22] MEDS: FUROSEMIDE 40 MG/4 ML VIAL IV PUSH SCH ×2 (09:29→17:47)
[2016-10-22] MEDS: BUDESONIDE-FORMOTEROL 160/4.5 MCG INHALER INH SCH ×2 (09:30→21:40)
[2016-10-22] MEDS: INSULIN ASPART SUPPLEMENTAL SCALE SQ SCH ×3 (11:40→21:40)
[2016-10-22] MEDS: ONDANSETRON HCL 4 MG/2 ML VIAL IV PUSH PRN (15:51)
[2016-10-22] MEDS: WARFARIN SOD 2 MG TAB PO SCH (16:55)
[2016-10-22] MEDS: MICAFUNGIN INJ 150 MG in SODIUM CHLORIDE 0.9% INJ 100 ML IV SCH (17:46)
--- NOTE | 2016-10-22 18:39 | HHI.PR ---
Subjective Remarks no sob no fever or chill no cough or sputum C/O ankle edema , on lasix Objective Vital Signs Date Time Temp Pulse Resp B/P Pulse Ox O2 Delivery O2 Flow Rate FiO2 10/22/16 16:00 97.1 119 18 122/84 96 10/22/16 07:44 95.7 98 18 131/92 99 10/22/16 07:34 97 Nasal Cannula 2.00 10/22/16 00:16 97.3 109 17 121/94 99 10/21/16 21:57 98 Nasal Cannula 10/21/16 20:40 96.4 97 19 150/95 98 10/21/16 20:23 Nasal Cannula 2.00 I/O 10/21/16 10/21/16 10/21/16 10/22/16 10/22/16 10/22/16 07:00 15:00 23:00 07:00 15:00 23:00 Intake Total 480 ml 960 ml 480 ml 720 ml Output Total 850 ml 1825 ml 1525 ml Balance -370 ml -865 ml 480 ml -805 ml Intake Oral 480 ml 960 ml 480 ml 720 ml Output Urine Total 850 ml 1825 ml 1525 ml # Voids 1 5 1 # Bowel Movements 0 1 1 0 Result Diagram: 10/21/1640 10/21/16 0540 Objective Remarks GENERAL: SKIN: Warm and dry. HEAD: Atraumatic. Normocephalic. EYES: Pupils equal and round. No scleral icterus. No injection or drainage. ENT: No nasal bleeding or discharge. Mucous membranes pink and moist. NECK: Trachea midline. No JVD. CARDIOVASCULAR: Regular rate and rhythm. RESPIRATORY: No accessory muscle use. Clear to auscultation. Breath sounds equal bilaterally. GASTROINTESTINAL: Abdomen soft, non-tender, nondistended. Hepatic and splenic margins not palpable. MUSCULOSKELETAL: Extremities without clubbing, cyanosis, or edema. No obvious deformities. NEUROLOGICAL: Awake and alert. No obvious cranial nerve deficits. Motor grossly within normal limits. Five out of 5 muscle strength in the arms and legs. Normal speech. PSYCHIATRIC: Appropriate mood and affect; insight and judgment normal. Assessment and Plan Assessment and Plan pulm improving with occasional whheze DVT/PE ON COUMADIN ContINUE o2 THERAPY INCREASE ACTIVITY Mary Hernandez MD Oct 22, 2016 18:39
--- NOTE | 2016-10-22 18:53 | HHI.PR ---
Subjective History of Present Illness Patient have sever wheezing not able to walk because of SOB/ Wheezing.. Right hip pain better. INR 1.5 on coumadin 2 mg PO Daily. Leg edema on Lasix 40 mg IV BID...better .. high LFTs monitoring Review of Systems Constitutional Constitutional: Fatigue, Weakness Pulmonary Respiratory: Shortness of Breath, Wheezing Musculoskeletal MS Remarks Right Hip pain/ swelling. Integumentary Skin Remarks right hip bruise. Vitals/Results Intake & Output 10/21/16 10/21/16 10/22/16 15:00 23:00 07:00 Intake Total 960 ml 480 ml 720 ml Output Total 1825 ml 1525 ml Balance -865 ml 480 ml -805 ml Intake Oral 960 ml 480 ml 720 ml Output Urine Total 1825 ml 1525 ml # Voids 5 1 # Bowel Movements 1 1 0 Vital Signs Vital Signs Date Time Temp Pulse Resp B/P Pulse Ox O2 Delivery O2 Flow Rate FiO2 10/22/16 16:00 97.1 119 18 122/84 96 10/22/16 07:44 95.7 98 18 131/92 99 10/22/16 07:34 97 Nasal Cannula 2.00 10/22/16 00:16 97.3 109 17 121/94 99 10/21/16 21:57 98 Nasal Cannula 10/21/16 20:40 96.4 97 19 150/95 98 10/21/16 20:23 Nasal Cannula 2.00 CBC/BMP: 10/21/16 0540 10/21/16 0540 Lab Results Laboratory Tests Test 10/22/16 05:10 Prothrombin Time 17.0 SEC Prothromb Time International 1.5 RATIO Ratio Physical Exam General General Appearance: Well Developed, No Acute Distress, Comfortable Eyes Eye Exam: Pupils Equal, Pupils Reactive Throat Throat Exam: Oral Mucosa [place] & Moist Neck Neck Exam: Neck Supple, Trachea Midline Pulmonary Resp Exam: Diminished Breath Sounds Resp Remarks Sever Bilateral Wheezing. Cardiology CV Exam: Regular, Normal Sinus Rhythm Gastrointestinal/Abdomen GI Exam: Soft, Non-Tender, Bowel Sounds Present, Non-Distended Musculoskeletal MS Exam: Normal Tone Integumentary Skin Exam: Warm, Dry Extremeties Extremities Exam: No Edema Neurologic Neuro Exam: Alert, Awake, Oriented, Speech Clear, Moving All Extremities, Glue Size Machine Operator Equal, No Focal Deficits Psychiatric Psych Exam: Appropriate Responses VTE Prophylaxis VTE Prophylaxis Meds: Coumadin PUD Prophylasis PUD Prophylaxis: Protonix Assessment/Plan Assessment/Plan ASSESSMENT AND PLAN: 1. Asthma exacerbation-continue oxygen, PO Prednisone, appreciate pulm input, Xopenex and Atrovent Apply humidifier to oxygen 2. History for right hip infection with fungus. The patient is on Diflucan + Micafungin.. He has right hip swelling and pain. Right hip ultrasound noted orthopedic input noted s/p needle drainage of hematoma right hip, per orthopedic not getting right hip hardware removed. S/P MRI Right hip shows 12 cm hematoma/seroma. s/p needle drainage... S/P CT Pelvis show no more hematoma collection 3. Septic right hip. The patient is on Diflucan + Micafungin... Infectious disease input noted.. Will monitor. 4. History of chronic obstructive pulmonary disease. Continue home medications. 5. History of depression. Continue home medications. 6. History of anxiety. Continue with Ativan 0.5 milligrams twice a day. 7. Right hip pain. The patient on tramadol and [place] and also Dilaudid 0.5 milligrams p.o. q. 6 hours PRN pain. 8. History of hyperlipidemia. Continue on Lipitor 20 milligrams p.o. daily. 9. History of pulmonary embolism and DVT right leg. INR 1.5 . on coumadin 2 mg PO Daily .Will monitor INR daily. 10. High blood sugar continue with ISS + Levemir 20 units subcut. HS. monitoring blood glucose 11. Leg edema on Lasix 40 mg IV BID DVT prophylaxis. . INR 1.5 . on coumadin 2 mg PO Daily GI prophylaxis. Protonix 40 milligrams p.o. daily/ Carafate 1 gram p.o. three times a day. DC plan in progress, IV Abx being arranged for OP . Check CBC with diff CMP INR in AM. Discussed Condition with: Patient Myron Woodward MD Oct 22, 2016 18:53
[2016-10-22 19:48] LABS: BASOPHIL % 0.4 % (0.0-2.0); EOSINOPHIL % 0.1 % (0.0-4.0); HEMATOCRIT 34.3 % (39.0-51.0); LYMPH % 7.9 % (9.0-44.0); LYMPHOCYTE # 0.8 TH/MM3 (1.0-4.8); MEAN CELL VOLUME 77.8 FL (80.0-100.0); MEAN CORPUSCULAR HEMOGLOBIN 24.6 PG (27.0-34.0); MEAN CORPUSCULAR HGB CONC 31.6 % (32.0-36.0); MONO % 5.2 % (0.0-8.0); NEUT % 86.4 % (16.0-70.0); PLATELET COUNT 459 TH/MM3 (150-450); RED BLOOD COUNT 4.41 MIL/MM3 (4.50-5.90); RED CELL DISTRIBUTION WIDTH 23.2 % (11.6-17.2); WHITE BLOOD COUNT 10.5 TH/MM3 (4.0-11.0)
[2016-10-22 19:52] LABS: HEMO FLAGS AUTO DIFF
[2016-10-22 20:14] LABS: INTERNATIONAL NORMALIZED RATIO 1.6 RATIO; PROTHROMBIN TIME - PATIENT 18.4 SEC (9.8-11.6)
[2016-10-22 20:19] LABS: ALKALINE PHOSPHATASE 157 U/L (45-117); ALT (GPT) 164 U/L (12-78); ANION GAP 11 MEQ/L (5-15); AST (GOT) 45 U/L (15-37); BICARBONATE 30.3 MEQ/L (21.0-32.0); BLOOD UREA NITROGEN 20 MG/DL (7-18); CHLORIDE 93 MEQ/L (98-107); GLOMERULAR FILTRATION RATE 65 ML/MIN (>89); POTASSIUM 3.6 MEQ/L (3.5-5.1); SODIUM (NA) 134 MEQ/L (136-145); TOTAL BILIRUBIN ADULT 0.3 MG/DL (0.2-1.0)
[2016-10-22 20:23] LABS: OVALOCYTES 1+ (NORMAL); PLATELET ESTIMATE SMEAR HIGH (NORMAL); PLATELET MORPHOLOGY NORMAL (NORMAL); SCAN/DIFF AUTO DIFF CONFIRMED; TEARDROP RBCS 1+ (NORMAL)
[2016-10-22] MEDS: MONTELUKAST SODIUM 10 MG TAB PO SCH (21:39)
[2016-10-22] MEDS: ATORVASTATIN 20 MG TAB PO SCH (21:39)
[2016-10-22] MEDS: INSULIN DETEMIR 100 UNITS/ML VIAL SQ SCH (21:40)
[2016-10-22] MEDS: traMADol HCL 50 MG TAB PO PRN (21:48)
[2016-10-23] VITALS (8 sets, daily range): BP systolic 118–142; BP diastolic 85–97; PULSE 105–115; RESP 18; TEMP 95.9–98.1; O2SAT 96–98
[2016-10-23] MEDS: RESP: ALBUTEROL 2.5 MG/IPRATROPIUM 0.5 MG NEB (SCH) NEB ×6 (00:22→19:22)
[2016-10-23] MEDS: INSULIN ASPART SUPPLEMENTAL SCALE SQ SCH ×4 (05:51→20:36)
[2016-10-23] MEDS: oxyCODONE HCL 20 MG CONTROLLED RELEASE TAB PO SCH ×2 (05:51→18:13)
[2016-10-23 06:58] LABS: INTERNATIONAL NORMALIZED RATIO 1.8 RATIO; PROTHROMBIN TIME - PATIENT 20.3 SEC (9.8-11.6)
--- NOTE | 2016-10-23 08:29 | HHI.PR ---
Subjective History of Present Illness Patient have sever wheezing not able to walk because of SOB/ Wheezing.. Right hip pain better. INR 2.2 on coumadin 2 mg PO Daily. Leg edema on Lasix 40 mg IV BID...better .. high LFTs monitoring Review of Systems Constitutional Constitutional: Fatigue, Weakness Pulmonary Respiratory: Shortness of Breath, Wheezing Musculoskeletal MS Remarks Right Hip pain/ swelling. Integumentary Skin Remarks right hip bruise. Vitals/Results Intake & Output 10/22/16 10/22/16 10/23/16 15:00 23:00 07:00 Intake Total 1440 ml 360 ml 360 ml Output Total 1400 ml 1000 ml Balance 40 ml 360 ml -640 ml Intake Oral 1440 ml 360 ml 360 ml Output Urine Total 1400 ml 1000 ml # Voids 2 # Bowel Movements 0 0 Vital Signs Vital Signs Date Time Temp Pulse Resp B/P Pulse Ox O2 Delivery O2 Flow Rate FiO2 10/23/16 04:03 98 Nasal Cannula 2.00 10/23/16 00:24 97 Nasal Cannula 2.00 10/22/16 23:49 96.8 114 18 149/82 97 10/22/16 20:02 Nasal Cannula 2.00 10/22/16 19:30 96.4 124 18 122/90 98 10/22/16 16:00 97.1 119 18 122/84 96 10/22/16 12:00 97.7 112 17 122/84 97 CBC/BMP: 10/22/16 1930 10/22/161929 Lab Results Laboratory Tests Test 10/22/16 10/23/16 19:30 05:47 White Blood Count 10.5 TH/MM3 Red Blood Count 4.41 MIL/MM3 Hemoglobin 10.8 GM/DL Hematocrit 34.3 % Mean Corpuscular Volume 77.8 FL Mean Corpuscular Hemoglobin 24.6 PG Mean Corpuscular Hemoglobin 31.6 % Concent Red Cell Distribution Width 23.2 % Platelet Count 459 TH/MM3 Mean Platelet Volume 6.7 FL Neutrophils (%) (Auto) 86.4 % Lymphocytes (%) (Auto) 7.9 % Monocytes (%) (Auto) 5.2 % Eosinophils (%) (Auto) 0.1 % Basophils (%) (Auto) 0.4 % Neutrophils # (Auto) 9.0 TH/MM3 Lymphocytes # (Auto) 0.8 TH/MM3 Monocytes # (Auto) 0.5 TH/MM3 Eosinophils # (Auto) 0.0 TH/MM3 Basophils # (Auto) 0.0 TH/MM3 CBC Comment AUTO DIFF Differential Comment AUTO DIFF CONFIRMED Platelet Estimate HIGH Platelet Morphology Comment NORMAL Tear Drop Cells 1+ Ovalocytes 1+ Prothrombin Time 18.4 SEC 20.3 SEC Prothromb Time International 1.6 RATIO 1.8 RATIO Ratio Sodium Level 134 MEQ/L Potassium Level 3.6 MEQ/L Chloride Level 93 MEQ/L Carbon Dioxide Level 30.3 MEQ/L Anion Gap 11 MEQ/L Blood Urea Nitrogen 20 MG/DL Creatinine 1.18 MG/DL Estimat Glomerular Filtration 65 ML/MIN Rate Random Glucose 303 MG/DL Calcium Level 9.1 MG/DL Total Bilirubin 0.3 MG/DL Aspartate Amino Transf 45 U/L (AST/SGOT) Alanine Aminotransferase 164 U/L (ALT/SGPT) Alkaline Phosphatase 157 U/L Total Protein 7.3 GM/DL Albumin 4.0 GM/DL Physical Exam General General Appearance: Well Developed, No Acute Distress, Comfortable Eyes Eye Exam: Pupils Equal, Pupils Reactive Throat Throat Exam: Oral Mucosa [place] & Moist Neck Neck Exam: Neck Supple, Trachea Midline Pulmonary Resp Exam: Diminished Breath Sounds Resp Remarks Sever Bilateral Wheezing. Cardiology CV Exam: Regular, Normal Sinus Rhythm Gastrointestinal/Abdomen GI Exam: Soft, Non-Tender, Bowel Sounds Present, Non-Distended Musculoskeletal MS Exam: Normal Tone Integumentary Skin Exam: Warm, Dry Extremeties Extremities Exam: No Edema Neurologic Neuro Exam: Alert, Awake, Oriented, Speech Clear, Moving All Extremities, Production Consultant Equal, No Focal Deficits Psychiatric Psych Exam: Appropriate Responses VTE Prophylaxis VTE Prophylaxis Meds: Coumadin PUD Prophylasis PUD Prophylaxis: Protonix Assessment/Plan Assessment/Plan ASSESSMENT AND PLAN: 1. Asthma exacerbation-continue oxygen, PO Prednisone, appreciate pulm input, Xopenex and Atrovent Apply humidifier to oxygen 2. History for right hip infection with fungus. The patient is on Diflucan + Micafungin.. He has right hip swelling and pain. Right hip ultrasound noted orthopedic input noted s/p needle drainage of hematoma right hip, per orthopedic not getting right hip hardware removed. S/P MRI Right hip shows 12 cm hematoma/seroma. s/p needle drainage... S/P CT Pelvis show no more hematoma collection 3. Septic right hip. The patient is on Diflucan + Micafungin... Infectious disease input noted.. Will monitor. 4. History of chronic obstructive pulmonary disease. Continue home medications. 5. History of depression. Continue home medications. 6. History of anxiety. Continue with Ativan 0.5 milligrams twice a day. 7. Right hip pain. The patient on tramadol and [place] and also Dilaudid 0.5 milligrams p.o. q. 6 hours PRN pain. 8. History of hyperlipidemia. Continue on Lipitor 20 milligrams p.o. daily. 9. History of pulmonary embolism and DVT right leg. INR 2.2 . on coumadin 2 mg PO Daily .Will monitor INR daily. 10. High blood sugar continue with ISS + Levemir 20 units subcut. HS. monitoring blood glucose 11. Leg edema on Lasix 40 mg IV BID DVT prophylaxis. . INR 2.2 . on coumadin 2 mg PO Daily GI prophylaxis. Protonix 40 milligrams p.o. daily/ Carafate 1 gram p.o. three times a day. DC plan in progress, IV Abx being arranged for OP . Check CBC with diff CMP INR in AM. Discussed Condition with: Patient Myron Woodward MD Oct 23, 2016 08:28
[2016-10-23] MEDS: DILTIAZEM-CD 180 MG CAP ER PO SCH (10:20)
[2016-10-23] MEDS: FLUCONAZOLE 200 MG TAB PO SCH (10:20)
[2016-10-23] MEDS: LORazepam 0.5 MG TAB PO SCH ×2 (10:20→20:34)
[2016-10-23] MEDS: predniSONE 20 MG TAB PO SCH ×2 (10:20→20:34)
[2016-10-23] MEDS: POTASSIUM CHLORIDE 10 MEQ CONTROLLED RELEASE TAB PO SCH ×2 (10:20→20:34)
[2016-10-23] MEDS: traMADol HCL 50 MG TAB PO PRN ×2 (10:21→18:13)
[2016-10-23] MEDS: SUCRALFATE 1 GM TAB PO SCH ×3 (10:21→18:13)
[2016-10-23] MEDS: PANTOPRAZOLE SOD 40 MG DELAYED RELEASE TAB PO SCH (10:21)
[2016-10-23] MEDS: FUROSEMIDE 40 MG/4 ML VIAL IV PUSH SCH ×2 (10:21→18:14)
[2016-10-23] MEDS: BUDESONIDE-FORMOTEROL 160/4.5 MCG INHALER INH SCH ×2 (10:22→20:36)
[2016-10-23] MEDS: PROMETHAZINE/CODEINE 6.25 MG/10 MG/5 ML CUP PO PRN (10:27)
[2016-10-23] MEDS: POLYETHYLENE GLYCOL 17 GM PKG PO PRN (10:30)
[2016-10-23 11:44] LABS: INTERNATIONAL NORMALIZED RATIO 1.9 RATIO; PROTHROMBIN TIME - PATIENT 21.5 SEC (9.8-11.6)
[2016-10-23] MEDS: ONDANSETRON HCL 4 MG/2 ML VIAL IV PUSH PRN (12:24)
[2016-10-23] MEDS: ACETAMINOPHEN/HYDROcodone 325 MG/7.5 MG TAB PO PRN ×2 (12:24→20:35)
[2016-10-23] MEDS: WARFARIN SOD 2 MG TAB PO SCH (17:10)
[2016-10-23] MEDS: MICAFUNGIN INJ 150 MG in SODIUM CHLORIDE 0.9% INJ 100 ML IV SCH (18:15)
--- NOTE | 2016-10-23 19:01 | HHI.PR ---
Subjective Remarks no sob no fever or chill no cough or sputum C/O ankle edema , on lasix Objective Vital Signs Date Time Temp Pulse Resp B/P Pulse Ox O2 Delivery O2 Flow Rate FiO2 10/23/16 16:40 97 Nasal Cannula 2.00 10/23/16 16:00 96.5 111 18 118/97 98 10/23/16 08:29 98 Nasal Cannula 2.00 10/23/16 08:03 95.9 105 18 125/85 96 10/23/16 04:03 98 Nasal Cannula 2.00 10/23/16 00:24 97 Nasal Cannula 2.00 10/22/16 23:49 96.8 114 18 149/82 97 10/22/16 20:02 Nasal Cannula 2.00 10/22/16 19:30 96.4 124 18 122/90 98 I/O 10/22/16 10/22/16 10/22/16 10/23/16 10/23/16 10/23/16 07:00 15:00 23:00 07:00 15:00 23:00 Intake Total 720 ml 1440 ml 360 ml 360 ml Output Total 1525 ml 1400 ml 1000 ml Balance -805 ml 40 ml 360 ml -640 ml Intake Oral 720 ml 1440 ml 360 ml 360 ml Output Urine Total 1525 ml 1400 ml 1000 ml # Voids 2 # Bowel Movements 0 0 0 Result Diagram: 10/22/16192910/22/161929 Objective Remarks GENERAL: SKIN: Warm and dry. HEAD: Atraumatic. Normocephalic. EYES: Pupils equal and round. No scleral icterus. No injection or drainage. ENT: No nasal bleeding or discharge. Mucous membranes pink and moist. NECK: Trachea midline. No JVD. CARDIOVASCULAR: Regular rate and rhythm. RESPIRATORY: No accessory muscle use. Clear to auscultation. Breath sounds equal bilaterally. GASTROINTESTINAL: Abdomen soft, non-tender, nondistended. Hepatic and splenic margins not palpable. MUSCULOSKELETAL: Extremities without clubbing, cyanosis, or edema. No obvious deformities. NEUROLOGICAL: Awake and alert. No obvious cranial nerve deficits. Motor grossly within normal limits. Five out of 5 muscle strength in the arms and legs. Normal speech. PSYCHIATRIC: Appropriate mood and affect; insight and judgment normal. Assessment and Plan Assessment and Plan pulm improving with occasional whheze DVT/PE ON COUMADIN ContINUE o2 THERAPY INCREASE ACTIVITY Mary,Mary Wadie MD Oct 23, 2016 19:01
[2016-10-23] MEDS: ATORVASTATIN 20 MG TAB PO SCH (20:34)
[2016-10-23] MEDS: INSULIN DETEMIR 100 UNITS/ML VIAL SQ SCH (20:34)
[2016-10-23] MEDS: MONTELUKAST SODIUM 10 MG TAB PO SCH (20:34)
[2016-10-24] VITALS (7 sets, daily range): BP systolic 133–142; BP diastolic 91–93; PULSE 99–110; RESP 16–17; TEMP 97–98.4; O2SAT 95–98
[2016-10-24] MEDS: traMADol HCL 50 MG TAB PO PRN ×3 (00:09→19:31)
[2016-10-24] MEDS: RESP: ALBUTEROL 2.5 MG/IPRATROPIUM 0.5 MG NEB (SCH) NEB ×4 (00:14→20:50)
[2016-10-24] MEDS: ACETAMINOPHEN/HYDROcodone 325 MG/7.5 MG TAB PO PRN ×3 (04:22→20:42)
[2016-10-24 05:21] LABS: INTERNATIONAL NORMALIZED RATIO 2.2 RATIO; PROTHROMBIN TIME - PATIENT 24.9 SEC (9.8-11.6)
[2016-10-24] MEDS: oxyCODONE HCL 20 MG CONTROLLED RELEASE TAB PO SCH ×2 (06:24→17:20)
[2016-10-24] MEDS: INSULIN ASPART SUPPLEMENTAL SCALE SQ SCH ×4 (06:25→20:42)
--- NOTE | 2016-10-24 07:30 | HHI.PR ---
Subjective History of Present Illness Patient have sever wheezing not able to walk because of SOB/ Wheezing.. Right hip pain better. INR 2.5 on coumadin 2 mg PO Daily. Leg edema on Lasix 40 mg IV BID...better .. high LFTs monitoring Review of Systems Constitutional Constitutional: Fatigue, Weakness Pulmonary Respiratory: Shortness of Breath, Wheezing Musculoskeletal MS Remarks Right Hip pain/ swelling. Integumentary Skin Remarks right hip bruise. Vitals/Results Intake & Output 10/23/16 10/23/16 10/24/16 15:00 23:00 07:00 Intake Total 1920 ml 480 ml 480 ml Output Total 1150 ml 500 ml 1200 ml Balance 770 ml -20 ml -720 ml Intake Oral 1920 ml 480 ml 480 ml Output Urine Total 1150 ml 500 ml 1200 ml # Bowel Movements 1 0 0 Vital Signs Vital Signs Date Time Temp Pulse Resp B/P Pulse Ox O2 Delivery O2 Flow Rate FiO2 10/24/16 00:17 98 Nasal Cannula 2.00 10/24/16 00:00 97.0 101 17 142/93 95 10/23/16 19:41 97.0 112 18 133/89 98 10/23/16 19:17 Nasal Cannula 2.00 Humidified 10/23/16 16:40 97 Nasal Cannula 2.00 10/23/16 16:00 96.5 111 18 118/97 98 10/23/16 12:53 98.1 115 18 142/95 96 10/23/16 08:29 98 Nasal Cannula 2.00 10/23/16 08:03 95.9 105 18 125/85 96 CBC/BMP: 10/22/16 1930 10/22/16 193 Lab Results Laboratory Tests Test 10/23/16 10/24/16 11:03 04:07 Prothrombin Time 21.5 SEC 24.9 SEC Prothromb Time International 1.9 RATIO 2.2 RATIO Ratio Physical Exam General General Appearance: Well Developed, No Acute Distress, Comfortable Eyes Eye Exam: Pupils Equal, Pupils Reactive Throat Throat Exam: Oral Mucosa [place] & Moist Neck Neck Exam: Neck Supple, Trachea Midline Pulmonary Resp Exam: Diminished Breath Sounds Resp Remarks Sever Bilateral Wheezing. Cardiology CV Exam: Regular, Normal Sinus Rhythm Gastrointestinal/Abdomen GI Exam: Soft, Non-Tender, Bowel Sounds Present, Non-Distended Musculoskeletal MS Exam: Normal Tone Integumentary Skin Exam: Warm, Dry Extremeties Extremities Exam: No Edema Neurologic Neuro Exam: Alert, Awake, Oriented, Speech Clear, Moving All Extremities, Sterilization Technician Equal, No Focal Deficits Psychiatric Psych Exam: Appropriate Responses VTE Prophylaxis VTE Prophylaxis Meds: Coumadin PUD Prophylasis PUD Prophylaxis: Protonix Assessment/Plan Assessment/Plan ASSESSMENT AND PLAN: 1. Asthma exacerbation-continue oxygen, PO Prednisone, appreciate pulm input, Xopenex and Atrovent Apply humidifier to oxygen 2. History for right hip infection with fungus. The patient is on Diflucan + Micafungin.. He has right hip swelling and pain. Right hip ultrasound noted orthopedic input noted s/p needle drainage of hematoma right hip, per orthopedic not getting right hip hardware removed. S/P MRI Right hip shows 12 cm hematoma/seroma. s/p needle drainage... S/P CT Pelvis show no more hematoma collection 3. Septic right hip. The patient is on Diflucan + Micafungin... Infectious disease input noted.. Will monitor. 4. History of chronic obstructive pulmonary disease. Continue home medications. 5. History of depression. Continue home medications. 6. History of anxiety. Continue with Ativan 0.5 milligrams twice a day. 7. Right hip pain. The patient on tramadol and [place] and also Dilaudid 0.5 milligrams p.o. q. 6 hours PRN pain. 8. History of hyperlipidemia. Continue on Lipitor 20 milligrams p.o. daily. 9. History of pulmonary embolism and DVT right leg. INR 2.5 . on coumadin 2 mg PO Daily .Will monitor INR daily. 10. High blood sugar continue with ISS + Levemir 20 units subcut. HS. monitoring blood glucose 11. Leg edema on Lasix 40 mg IV BID DVT prophylaxis. . INR 2.5 . on coumadin 2 mg PO Daily GI prophylaxis. Protonix 40 milligrams p.o. daily/ Carafate 1 gram p.o. three times a day. DC plan in progress, IV Abx being arranged for OP . Check CBC with diff CMP INR in AM. Discussed Condition with: Patient Myron Woodward MD Oct 24, 2016 07:30
--- NOTE | 2016-10-24 08:46 | HHI.PR ---
Subjective Remarks no sob no fever or chill no cough or sputum C/O ankle edema , on lasix Objective Vital Signs Date Time Temp Pulse Resp B/P Pulse Ox O2 Delivery O2 Flow Rate FiO2 10/24/16 07:38 98 Nasal Cannula 2.00 10/24/16 00:17 98 Nasal Cannula 2.00 10/24/16 00:00 97.0 101 17 142/93 95 10/23/16 19:41 97.0 112 18 133/89 98 10/23/16 19:17 Nasal Cannula 2.00 Humidified 10/23/16 16:40 97 Nasal Cannula 2.00 10/23/16 16:00 96.5 111 18 118/97 98 10/23/16 12:53 98.1 115 18 142/95 96 I/O 10/23/16 10/23/16 10/23/16 10/24/16 10/24/16 10/24/16 07:00 15:00 23:00 07:00 15:00 23:00 Intake Total 360 ml 1920 ml 480 ml 480 ml Output Total 1000 ml 1150 ml 500 ml 1200 ml Balance -640 ml 770 ml -20 ml -720 ml Intake Oral 360 ml 1920 ml 480 ml 480 ml Output Urine Total 1000 ml 1150 ml 500 ml 1200 ml # Bowel Movements 0 1 0 0 Result Diagram: 10/22/16192910/22/161929 Objective Remarks GENERAL: SKIN: Warm and dry. HEAD: Atraumatic. Normocephalic. EYES: Pupils equal and round. No scleral icterus. No injection or drainage. ENT: No nasal bleeding or discharge. Mucous membranes pink and moist. NECK: Trachea midline. No JVD. CARDIOVASCULAR: Regular rate and rhythm. RESPIRATORY: No accessory muscle use. Clear to auscultation. Breath sounds equal bilaterally. GASTROINTESTINAL: Abdomen soft, non-tender, nondistended. Hepatic and splenic margins not palpable. MUSCULOSKELETAL: Extremities without clubbing, cyanosis, or edema. No obvious deformities. NEUROLOGICAL: Awake and alert. No obvious cranial nerve deficits. Motor grossly within normal limits. Five out of 5 muscle strength in the arms and legs. Normal speech. PSYCHIATRIC: Appropriate mood and affect; insight and judgment normal. Assessment and Plan Assessment and Plan pulm improving with occasional whheze DVT/PE ON COUMADIN ContINUE o2 THERAPY INCREASE ACTIVITY bronchodilators taper steroids as tolerated Mary Hernandeze MD Oct 24, 2016 08:46
[2016-10-24] MEDS: BUDESONIDE-FORMOTEROL 160/4.5 MCG INHALER INH SCH ×2 (09:14→20:43)
[2016-10-24] MEDS: PANTOPRAZOLE SOD 40 MG DELAYED RELEASE TAB PO SCH (09:15)
[2016-10-24] MEDS: FLUCONAZOLE 200 MG TAB PO SCH (09:15)
[2016-10-24] MEDS: LORazepam 0.5 MG TAB PO SCH ×2 (09:15→20:42)
[2016-10-24] MEDS: SUCRALFATE 1 GM TAB PO SCH ×3 (09:15→17:20)
[2016-10-24] MEDS: DILTIAZEM-CD 180 MG CAP ER PO SCH (09:15)
[2016-10-24] MEDS: POTASSIUM CHLORIDE 10 MEQ CONTROLLED RELEASE TAB PO SCH ×2 (09:15→20:41)
[2016-10-24] MEDS: FUROSEMIDE 40 MG/4 ML VIAL IV PUSH SCH ×2 (09:16→17:20)
[2016-10-24] MEDS: predniSONE 20 MG TAB PO SCH ×2 (09:16→20:42)
[2016-10-24 11:05] LABS: INTERNATIONAL NORMALIZED RATIO 2.5 RATIO; PROTHROMBIN TIME - PATIENT 28.4 SEC (9.8-11.6)
[2016-10-24] MEDS: PROMETHAZINE/CODEINE 6.25 MG/10 MG/5 ML CUP PO PRN (15:32)
[2016-10-24] MEDS: WARFARIN SOD 2 MG TAB PO SCH (16:00)
[2016-10-24] MEDS: MICAFUNGIN INJ 150 MG in SODIUM CHLORIDE 0.9% INJ 100 ML IV SCH (17:22)
[2016-10-24] MEDS: MONTELUKAST SODIUM 10 MG TAB PO SCH (20:41)
[2016-10-24] MEDS: INSULIN DETEMIR 100 UNITS/ML VIAL SQ SCH (20:41)
[2016-10-24] MEDS: ATORVASTATIN 20 MG TAB PO SCH (20:42)
[2016-10-25] VITALS (8 sets, daily range): BP systolic 122–150; BP diastolic 85–99; PULSE 88–117; RESP 16–21; TEMP 95.8–97.1; O2SAT 94–99
[2016-10-25] MEDS: RESP: ALBUTEROL 2.5 MG/IPRATROPIUM 0.5 MG NEB (SCH) NEB ×4 (00:26→11:28)
[2016-10-25] MEDS: oxyCODONE HCL 20 MG CONTROLLED RELEASE TAB PO SCH ×2 (05:50→17:30)
[2016-10-25 06:12] LABS: INTERNATIONAL NORMALIZED RATIO 2.5 RATIO; PROTHROMBIN TIME - PATIENT 28.5 SEC (9.8-11.6)
[2016-10-25] MEDS: INSULIN ASPART SUPPLEMENTAL SCALE SQ SCH ×4 (06:19→21:13)
[2016-10-25] MEDS: LORazepam 0.5 MG TAB PO SCH ×2 (08:20→21:12)
[2016-10-25] MEDS: DILTIAZEM-CD 180 MG CAP ER PO SCH (08:20)
[2016-10-25] MEDS: POTASSIUM CHLORIDE 10 MEQ CONTROLLED RELEASE TAB PO SCH ×2 (08:20→21:13)
[2016-10-25] MEDS: FUROSEMIDE 40 MG/4 ML VIAL IV PUSH SCH ×2 (08:20→17:31)
[2016-10-25] MEDS: PANTOPRAZOLE SOD 40 MG DELAYED RELEASE TAB PO SCH (08:20)
[2016-10-25] MEDS: FLUCONAZOLE 200 MG TAB PO SCH (08:20)
[2016-10-25] MEDS: predniSONE 20 MG TAB PO SCH ×2 (08:20→21:12)
[2016-10-25] MEDS: SUCRALFATE 1 GM TAB PO SCH ×3 (08:20→17:30)
--- NOTE | 2016-10-25 08:49 | HHI.PR ---
Subjective Remarks no sob no fever or chill no cough or sputum GRADUALLY AMBULATING PLAN BRONCHDILATOR THERAPY ANTI COAGS INCREASE ACTIVITY Objective Vital Signs Date Time Temp Pulse Resp B/P Pulse Ox O2 Delivery O2 Flow Rate FiO2 10/25/16 08:41 98 Nasal Cannula 2.00 10/25/16 00:00 97.1 95 16 136/99 95 10/24/16 20:52 98 Nasal Cannula 10/24/16 20:28 97.5 110 17 138/93 97 10/24/16 19:04 Nasal Cannula 3.00 Humidified 10/24/16 16:22 98.4 99 16 142/91 97 I/O 10/24/16 10/24/16 10/24/16 10/25/16 10/25/16 10/25/16 07:00 15:00 23:00 07:00 15:00 23:00 Intake Total 480 ml 1240 ml 480 ml 360 ml Output Total 1200 ml 1720 ml 2200 ml Balance -720 ml 1240 ml -1240 ml -1840 ml Intake Oral 480 ml 1240 ml 480 ml 360 ml Output Urine Total 1200 ml 1720 ml 2200 ml # Voids 5 2 # Bowel Movements 0 2 0 0 Result Diagram: 10/22/16192910/22/161929 Objective Remarks GENERAL: SKIN: Warm and dry. HEAD: Atraumatic. Normocephalic. EYES: Pupils equal and round. No scleral icterus. No injection or drainage. ENT: No nasal bleeding or discharge. Mucous membranes pink and moist. NECK: Trachea midline. No JVD. CARDIOVASCULAR: Regular rate and rhythm. RESPIRATORY: No accessory muscle use. Clear to auscultation. Breath sounds equal bilaterally. GASTROINTESTINAL: Abdomen soft, non-tender, nondistended. Hepatic and splenic margins not palpable. MUSCULOSKELETAL: Extremities without clubbing, cyanosis, or edema. No obvious deformities. NEUROLOGICAL: Awake and alert. No obvious cranial nerve deficits. Motor grossly within normal limits. Five out of 5 muscle strength in the arms and legs. Normal speech. PSYCHIATRIC: Appropriate mood and affect; insight and judgment normal. Assessment and Plan Assessment and Plan pulm improving with occasional whheze DVT/PE ON COUMADIN ContINUE o2 THERAPY INCREASE ACTIVITY bronchodilators taper steroids as tolerated Mary Hernandez MD Oct 25, 2016 08:49
[2016-10-25] MEDS: BUDESONIDE-FORMOTEROL 160/4.5 MCG INHALER INH SCH ×2 (09:00→21:12)
[2016-10-25] MEDS: ACETAMINOPHEN/HYDROcodone 325 MG/7.5 MG TAB PO PRN ×2 (09:17→21:13)
--- NOTE | 2016-10-25 10:35 | HHI.PR ---
Subjective Subjective Remarks able to ambulate from door to bathroom, then becomes SOB still with some wheezing eating okay no cp no fever right hip improved, minimal pain Review of Systems Constitutional Constitutional: Fatigue, Weakness Constitutional Remarks 12 point ROS completed, negative except as noted above Pulmonary Respiratory: Shortness of Breath, Wheezing Vitals/Results Intake & Output 10/24/16 10/24/16 10/25/16 15:00 23:00 07:00 Intake Total 1240 ml 480 ml 360 ml Output Total 1720 ml 2200 ml Balance 1240 ml -1240 ml -1840 ml Intake Oral 1240 ml 480 ml 360 ml Output Urine Total 1720 ml 2200 ml # Voids 5 2 # Bowel Movements 2 0 0 Vital Signs Vital Signs Date Time Temp Pulse Resp B/P Pulse Ox O2 Delivery O2 Flow Rate FiO2 10/25/16 08:41 98 Nasal Cannula 2.00 10/25/16 08:00 95.8 88 18 142/92 96 10/25/16 00:00 97.1 95 16 136/99 95 10/24/16 20:52 98 Nasal Cannula 10/24/16 20:28 97.5 110 17 138/93 97 10/24/16 19:04 Nasal Cannula 3.00 Humidified 10/24/16 16:22 98.4 99 16 142/91 97 CBC/BMP: 10/22/16 1930 10/22/16 193 Lab Results Laboratory Tests Test 10/25/16 05:50 Prothrombin Time 28.5 SEC Prothromb Time International 2.5 RATIO Ratio Physical Exam General General Appearance: Well Developed, No Acute Distress, Comfortable Eyes Eye Exam: Pupils Equal, Pupils Reactive Throat Throat Exam: Oral Mucosa [place] & Moist Neck Neck Exam: Neck Supple, Trachea Midline Pulmonary Resp Exam: Diminished Breath Sounds Resp Remarks wheezes Cardiology CV Exam: Regular, Normal Sinus Rhythm Gastrointestinal/Abdomen GI Exam: Soft, Non-Tender, Bowel Sounds Present, Non-Distended Musculoskeletal MS Exam: Normal Tone Integumentary Skin Exam: Warm, Dry Extremeties Extremities Exam: No Edema Neurologic Neuro Exam: Alert, Awake, Oriented, Speech Clear, Moving All Extremities, [place] Equal, No Focal Deficits Psychiatric Psych Exam: Appropriate Responses VTE Prophylaxis VTE Prophylaxis Meds: Coumadin PUD Prophylasis PUD Prophylaxis: Protonix Assessment/Plan Assessment/Plan ASSESSMENT AND PLAN: 1. Asthma exacerbation-continue oxygen, PO Prednisone, appreciate pulm input, Xopenex and Atrovent Apply humidifier to oxygen 2. History for right hip infection with fungus. The patient is on Diflucan + Micafungin.. He has right hip swelling and pain. Right hip ultrasound noted orthopedic input noted s/p needle drainage of hematoma right hip, per orthopedic not getting right hip hardware removed. S/P MRI Right hip shows 12 cm hematoma/seroma. s/p needle drainage... S/P CT Pelvis show no more hematoma collection 3. Septic right hip. The patient is on Diflucan + Micafungin... Infectious disease input noted.. Will monitor. 4. History of chronic obstructive pulmonary disease. Continue home medications. 5. History of depression. Continue home medications. 6. History of anxiety. Continue with Ativan 0.5 milligrams twice a day. 7. Right hip pain. The patient on tramadol and [place] and also Dilaudid 0.5 milligrams p.o. q. 6 hours PRN pain. 8. History of hyperlipidemia. Continue on Lipitor 20 milligrams p.o. daily. 9. History of pulmonary embolism and DVT right leg. INR 2.5 . on coumadin 2 mg PO Daily. Will monitor INR daily. 10. High blood sugar continue with ISS + Levemir 20 units subcut. HS. monitoring blood glucose 11. Leg edema on Lasix 40 mg IV BID DVT prophylaxis. . INR 2.5 . on coumadin 2 mg PO Daily GI prophylaxis. Protonix 40 milligrams p.o. daily/ Carafate 1 gram p.o. three times a day. DC plan in progress, IV Abx being arranged for OP . D/W RN D/W Dr. Godoy D/W pt This patient was seen by myself and Dr. Godoy, this note is written on his behalf. Elizabeth Iraheta Oct 25, 2016 10:35
[2016-10-25 11:10] LABS: INTERNATIONAL NORMALIZED RATIO 2.4 RATIO; PROTHROMBIN TIME - PATIENT 27.2 SEC (9.8-11.6)
[2016-10-25] MEDS: traMADol HCL 50 MG TAB PO PRN (15:41)
[2016-10-25] MEDS: PROMETHAZINE/CODEINE 6.25 MG/10 MG/5 ML CUP PO PRN (15:41)
[2016-10-25] MEDS: WARFARIN SOD 2 MG TAB PO SCH (15:41)
[2016-10-25] MEDS: MICAFUNGIN INJ 150 MG in SODIUM CHLORIDE 0.9% INJ 100 ML IV SCH (17:30)
[2016-10-25] MEDS: ONDANSETRON HCL 4 MG/2 ML VIAL IV PUSH PRN (17:30)
[2016-10-25] MEDS: RESP: ALBUTEROL 2.5 MG/IPRATROPIUM 0.5 MG NEB (PRN) NEB ×2 (19:18→23:58)
[2016-10-25] MEDS: MONTELUKAST SODIUM 10 MG TAB PO SCH (21:12)
[2016-10-25] MEDS: ATORVASTATIN 20 MG TAB PO SCH (21:12)
[2016-10-25] MEDS: INSULIN DETEMIR 100 UNITS/ML VIAL SQ SCH (21:13)
[2016-10-26 00:25] VITALS: BP 115/61; PULSE 86; RESP 21; TEMP 97.7; O2SAT 95
[2016-10-26] MEDS: traMADol HCL 50 MG TAB PO PRN ×4 (00:27→20:37)
[2016-10-26] MEDS: RESP: ALBUTEROL 2.5 MG/IPRATROPIUM 0.5 MG NEB (PRN) NEB ×5 (04:10→19:14)
[2016-10-26] MEDS: oxyCODONE HCL 20 MG CONTROLLED RELEASE TAB PO SCH ×2 (05:56→16:08)
[2016-10-26] MEDS: INSULIN ASPART SUPPLEMENTAL SCALE SQ SCH ×4 (05:59→20:38)
[2016-10-26 06:39] LABS: INTERNATIONAL NORMALIZED RATIO 2.6 RATIO; PROTHROMBIN TIME - PATIENT 30.2 SEC (9.8-11.6)
[2016-10-26 07:18] VITALS: BP 133/86; PULSE 90; RESP 18; TEMP 96; O2SAT 99
[2016-10-26] MEDS: LORazepam 0.5 MG TAB PO SCH ×2 (08:25→20:37)
[2016-10-26] MEDS: FUROSEMIDE 40 MG/4 ML VIAL IV PUSH SCH ×2 (08:25→16:08)
[2016-10-26] MEDS: FLUCONAZOLE 200 MG TAB PO SCH (08:25)
[2016-10-26] MEDS: predniSONE 20 MG TAB PO SCH ×2 (08:25→20:37)
[2016-10-26] MEDS: POTASSIUM CHLORIDE 10 MEQ CONTROLLED RELEASE TAB PO SCH ×2 (08:26→20:37)
[2016-10-26] MEDS: DILTIAZEM-CD 180 MG CAP ER PO SCH (08:26)
[2016-10-26] MEDS: SUCRALFATE 1 GM TAB PO SCH ×3 (08:26→17:20)
[2016-10-26] MEDS: PANTOPRAZOLE SOD 40 MG DELAYED RELEASE TAB PO SCH (08:26)
[2016-10-26] MEDS: ACETAMINOPHEN/HYDROcodone 325 MG/7.5 MG TAB PO PRN ×3 (08:27→23:45)
[2016-10-26] MEDS: BUDESONIDE-FORMOTEROL 160/4.5 MCG INHALER INH SCH ×2 (08:27→20:39)
--- NOTE | 2016-10-26 09:29 | HHI.PR ---
Subjective History of Present Illness Patient have sever wheezing not able to walk because of SOB/ Wheezing.. Right hip pain better. INR 2.5 on coumadin 2 mg PO Daily. Leg edema on Lasix 40 mg IV BID...better .. high LFTs monitoring Review of Systems Constitutional Constitutional: Fatigue, Weakness Pulmonary Respiratory: Shortness of Breath, Wheezing Musculoskeletal MS Remarks Right Hip pain/ swelling. Integumentary Skin Remarks right hip bruise. Vitals/Results Intake & Output 10/25/16 10/25/16 10/26/16 15:00 23:00 07:00 Intake Total 1260 ml 1400 ml 720 ml Output Total 2500 ml 1075 ml Balance 1260 ml -1100 ml -355 ml Intake Oral 1260 ml 1400 ml 720 ml Output Urine Total 2500 ml 1075 ml # Voids 5 # Bowel Movements 2 0 0 Vital Signs Vital Signs Date Time Temp Pulse Resp B/P Pulse Ox O2 Delivery O2 Flow Rate FiO2 10/26/16 07:18 96.0 90 18 133/86 99 10/26/16 07:10 Nasal Cannula 3.00 Humidified 10/26/16 00:25 97.7 86 21 115/61 95 10/25/16 20:24 97.0 117 21 122/85 96 10/25/16 19:18 97 Nasal Cannula 2.00 10/25/16 18:54 Nasal Cannula 3.00 10/25/16 16:00 96.8 111 18 134/98 99 10/25/16 12:00 96.6 105 18 150/91 94 CBC/BMP: 10/22/16 1930 10/22/161929 Lab Results Laboratory Tests Test 10/25/16 10/26/16 10:47 06:00 Prothrombin Time 27.2 SEC 30.2 SEC Prothromb Time International 2.4 RATIO 2.6 RATIO Ratio Physical Exam General General Appearance: Well Developed, No Acute Distress, Comfortable Eyes Eye Exam: Pupils Equal, Pupils Reactive Throat Throat Exam: Oral Mucosa [place] & Moist Neck Neck Exam: Neck Supple, Trachea Midline Pulmonary Resp Exam: Diminished Breath Sounds Resp Remarks Sever Bilateral Wheezing. Cardiology CV Exam: Regular, Normal Sinus Rhythm Gastrointestinal/Abdomen GI Exam: Soft, Non-Tender, Bowel Sounds Present, Non-Distended Musculoskeletal MS Exam: Normal Tone Integumentary Skin Exam: Warm, Dry Extremeties Extremities Exam: No Edema Neurologic Neuro Exam: Alert, Awake, Oriented, Speech Clear, Moving All Extremities, Leaf Stamper Equal, No Focal Deficits Psychiatric Psych Exam: Appropriate Responses VTE Prophylaxis VTE Prophylaxis Meds: Coumadin PUD Prophylasis PUD Prophylaxis: Protonix Assessment/Plan Assessment/Plan ASSESSMENT AND PLAN: 1. Asthma exacerbation-continue oxygen, PO Prednisone, appreciate pulm input, Xopenex and Atrovent Apply humidifier to oxygen 2. History for right hip infection with fungus. The patient is on Diflucan + Micafungin.. He has right hip swelling and pain. Right hip ultrasound noted orthopedic input noted s/p needle drainage of hematoma right hip, per orthopedic not getting right hip hardware removed. S/P MRI Right hip shows 12 cm hematoma/seroma. s/p needle drainage... S/P CT Pelvis show no more hematoma collection 3. Septic right hip. The patient is on Diflucan + Micafungin... Infectious disease input noted.. Will monitor. 4. History of chronic obstructive pulmonary disease. Continue home medications. 5. History of depression. Continue home medications. 6. History of anxiety. Continue with Ativan 0.5 milligrams twice a day. 7. Right hip pain. The patient on tramadol and [place] and also Dilaudid 0.5 milligrams p.o. q. 6 hours PRN pain. 8. History of hyperlipidemia. Continue on Lipitor 20 milligrams p.o. daily. 9. History of pulmonary embolism and DVT right leg. INR 2.5 . on coumadin 2 mg PO Daily. Will monitor INR daily. 10. High blood sugar continue with ISS + Levemir 20 units subcut. HS. monitoring blood glucose 11. Leg edema on Lasix 40 mg IV BID DVT prophylaxis. . INR 2.5 . on coumadin 2 mg PO Daily GI prophylaxis. Protonix 40 milligrams p.o. daily/ Carafate 1 gram p.o. three times a day. DC plan in progress, IV Abx being arranged for OP . Discussed Condition with: Patient Myron Woodward MD Oct 26, 2016 09:29 behalf. Myron Woodward MD Oct 26, 2016 09:29
[2016-10-26 09:42] LABS: INTERNATIONAL NORMALIZED RATIO 2.5 RATIO; PROTHROMBIN TIME - PATIENT 28.8 SEC (9.8-11.6)
[2016-10-26 12:28] VITALS: BP 134/95; PULSE 99; RESP 18; TEMP 96.4; O2SAT 93
--- NOTE | 2016-10-26 13:16 | HHI.PR ---
Subjective Remarks no sob no fever or chill no cough or sputum Objective Vital Signs Date Time Temp Pulse Resp B/P Pulse Ox O2 Delivery O2 Flow Rate FiO2 10/26/16 09:58 Nasal Cannula 2.50 10/26/16 07:18 96.0 90 18 133/86 99 10/26/16 07:10 Nasal Cannula 3.00 Humidified 10/26/16 00:25 97.7 86 21 115/61 95 10/25/16 20:24 97.0 117 21 122/85 96 10/25/16 19:18 97 Nasal Cannula 2.00 10/25/16 18:54 Nasal Cannula 3.00 10/25/16 16:00 96.8 111 18 134/98 99 I/O 10/25/16 10/25/16 10/25/16 10/26/16 10/26/16 10/26/16 07:00 15:00 23:00 07:00 15:00 23:00 Intake Total 360 ml 1260 ml 1400 ml 720 ml Output Total 2200 ml 2500 ml 1075 ml Balance -1840 ml 1260 ml -1100 ml -355 ml Intake Oral 360 ml 1260 ml 1400 ml 720 ml Output Urine Total 2200 ml 2500 ml 1075 ml # Voids 5 # Bowel Movements 0 2 0 0 Result Diagram: 10/22/16192910/22/161929 Objective Remarks GENERAL: SKIN: Warm and dry. HEAD: Atraumatic. Normocephalic. EYES: Pupils equal and round. No scleral icterus. No injection or drainage. ENT: No nasal bleeding or discharge. Mucous membranes pink and moist. NECK: Trachea midline. No JVD. CARDIOVASCULAR: Regular rate and rhythm. RESPIRATORY: No accessory muscle use. Clear to auscultation. Breath sounds equal bilaterally. GASTROINTESTINAL: Abdomen soft, non-tender, nondistended. Hepatic and splenic margins not palpable. MUSCULOSKELETAL: Extremities without clubbing, cyanosis, or edema. No obvious deformities. NEUROLOGICAL: Awake and alert. No obvious cranial nerve deficits. Motor grossly within normal limits. Five out of 5 muscle strength in the arms and legs. Normal speech. PSYCHIATRIC: Appropriate mood and affect; insight and judgment normal. Assessment and Plan Assessment and Plan pulm improving with occasional whheze DVT/PE ON COUMADIN ContINUE o2 THERAPY INCREASE ACTIVITY bronchodilators taper steroids as tolerated Mary Hernandez MD Oct 26, 2016 13:16
[2016-10-26] MEDS: PROMETHAZINE/CODEINE 6.25 MG/10 MG/5 ML CUP PO PRN (14:04)
[2016-10-26] MEDS: WARFARIN SOD 2 MG TAB PO SCH (15:25)
[2016-10-26 15:54] VITALS: O2SAT 93
[2016-10-26 16:07] VITALS: BP 130/92; PULSE 105; RESP 18; TEMP 97.1; O2SAT 97
[2016-10-26] MEDS: SODIUM CHLORIDE 0.9% FLUSH 5 ML FLUSH IVF PRN (16:08)
[2016-10-26] MEDS: MICAFUNGIN INJ 150 MG in SODIUM CHLORIDE 0.9% INJ 100 ML IV SCH (16:08)
[2016-10-26 20:25] VITALS: BP 144/97; PULSE 123; RESP 19; TEMP 96.1; O2SAT 97
[2016-10-26] MEDS: MONTELUKAST SODIUM 10 MG TAB PO SCH (20:37)
[2016-10-26] MEDS: ATORVASTATIN 20 MG TAB PO SCH (20:37)
[2016-10-26] MEDS: INSULIN DETEMIR 100 UNITS/ML VIAL SQ SCH (20:38)
[2016-10-27] VITALS (9 sets, daily range): BP systolic 126–142; BP diastolic 86–98; PULSE 94–111; RESP 17–18; TEMP 96.1–97.1; O2SAT 95–98
[2016-10-27] MEDS: RESP: ALBUTEROL 2.5 MG/IPRATROPIUM 0.5 MG NEB (PRN) NEB ×7 (00:29→23:36)
--- NOTE | 2016-10-27 05:03 | HHI.PR ---
Subjective History of Present Illness Patient have sever wheezing not able to walk because of SOB/ Wheezing.. Right hip pain better. INR 2.7 on coumadin 2 mg PO Daily. Leg edema on Lasix 40 mg IV BID...better .. high LFTs monitoring Review of Systems Constitutional Constitutional: Fatigue, Weakness Pulmonary Respiratory: Shortness of Breath, Wheezing Musculoskeletal MS Remarks Right Hip pain/ swelling. Integumentary Skin Remarks right hip bruise. Vitals/Results Intake & Output 10/26/16 10/26/16 10/27/16 15:00 23:00 07:00 Intake Total 1440 ml 817 ml Output Total 800 ml 1600 ml Balance 640 ml -783 ml Intake Oral 1440 ml 720 ml IV Total 97 ml Output Urine Total 800 ml 1600 ml # Bowel Movements 1 0 Vital Signs Vital Signs Date Time Temp Pulse Resp B/P Pulse Ox O2 Delivery O2 Flow Rate FiO2 10/27/16 04:17 98 Nasal Cannula 2.00 10/27/16 00:32 98 Nasal Cannula 2.00 10/27/16 00:25 97.1 100 18 142/98 97 10/26/16 20:25 96.1 123 19 144/97 97 10/26/16 19:16 Nasal Cannula 2.50 Humidified 10/26/16 18:08 Nasal Cannula 3.00 Humidified 10/26/16 16:07 97.1 105 18 130/92 97 10/26/16 15:54 93 Nasal Cannula 2.00 10/26/16 12:28 96.4 99 18 134/95 93 10/26/16 09:58 Nasal Cannula 2.50 10/26/16 07:18 96.0 90 18 133/86 99 10/26/16 07:10 Nasal Cannula 3.00 Humidified Lab Results Laboratory Tests Test 10/26/16 10/26/16 06:00 09:12 Prothrombin Time 30.2 SEC 28.8 SEC Prothromb Time International 2.6 RATIO 2.5 RATIO Ratio Physical Exam General General Appearance: Well Developed, No Acute Distress, Comfortable Eyes Eye Exam: Pupils Equal, Pupils Reactive Throat Throat Exam: Oral Mucosa [place] & Moist Neck Neck Exam: Neck Supple, Trachea Midline Pulmonary Resp Exam: Diminished Breath Sounds Resp Remarks Sever Bilateral Wheezing. Cardiology CV Exam: Regular, Normal Sinus Rhythm Gastrointestinal/Abdomen GI Exam: Soft, Non-Tender, Bowel Sounds Present, Non-Distended Musculoskeletal MS Exam: Normal Tone Integumentary Skin Exam: Warm, Dry Extremeties Extremities Exam: No Edema Neurologic Neuro Exam: Alert, Awake, Oriented, Speech Clear, Moving All Extremities, Driver Education Road Instructor Equal, No Focal Deficits Psychiatric Psych Exam: Appropriate Responses VTE Prophylaxis VTE Prophylaxis Meds: Coumadin PUD Prophylasis PUD Prophylaxis: Protonix Assessment/Plan Assessment/Plan ASSESSMENT AND PLAN: 1. Asthma exacerbation-continue oxygen, PO Prednisone, appreciate pulm input, Xopenex and Atrovent Apply humidifier to oxygen 2. History for right hip infection with fungus. The patient is on Diflucan + Micafungin.. He has right hip swelling and pain. Right hip ultrasound noted orthopedic input noted s/p needle drainage of hematoma right hip, per orthopedic not getting right hip hardware removed. S/P MRI Right hip shows 12 cm hematoma/seroma. s/p needle drainage... S/P CT Pelvis show no more hematoma collection 3. Septic right hip. The patient is on Diflucan + Micafungin... Infectious disease input noted.. Will monitor. 4. History of chronic obstructive pulmonary disease. Continue home medications. 5. History of depression. Continue home medications. 6. History of anxiety. Continue with Ativan 0.5 milligrams twice a day. 7. Right hip pain. The patient on tramadol and [place] and also Dilaudid 0.5 milligrams p.o. q. 6 hours PRN pain. 8. History of hyperlipidemia. Continue on Lipitor 20 milligrams p.o. daily. 9. History of pulmonary embolism and DVT right leg. INR 2.7 . on coumadin 2 mg PO Daily. Will monitor INR daily. 10. High blood sugar continue with ISS + Levemir 20 units subcut. HS. monitoring blood glucose 11. Leg edema on Lasix 40 mg IV BID DVT prophylaxis. . INR 2.7 . on coumadin 2 mg PO Daily GI prophylaxis. Protonix 40 milligrams p.o. daily/ Carafate 1 gram p.o. three times a day. DC plan in progress, IV Abx being arranged for OP . Discussed Condition with: Patient Myron Woodward MD Oct 27, 2016 05:03
[2016-10-27] MEDS: oxyCODONE HCL 20 MG CONTROLLED RELEASE TAB PO SCH ×2 (05:51→16:34)
[2016-10-27] MEDS: INSULIN ASPART SUPPLEMENTAL SCALE SQ SCH ×4 (06:18→20:43)
[2016-10-27 06:32] LABS: BASOPHIL % 0.2 % (0.0-2.0); EOSINOPHIL # 0.1 TH/MM3 (0-0.4); EOSINOPHIL % 1.2 % (0.0-4.0); HEMATOCRIT 30.2 % (39.0-51.0); LYMPH % 15.1 % (9.0-44.0); MEAN CELL VOLUME 76.2 FL (80.0-100.0); MEAN CORPUSCULAR HEMOGLOBIN 24.1 PG (27.0-34.0); MEAN CORPUSCULAR HGB CONC 31.6 % (32.0-36.0); MONO % 8.3 % (0.0-8.0); NEUT % 75.2 % (16.0-70.0); PLATELET COUNT 353 TH/MM3 (150-450); RED BLOOD COUNT 3.97 MIL/MM3 (4.50-5.90); RED CELL DISTRIBUTION WIDTH 23.3 % (11.6-17.2); WHITE BLOOD COUNT 6.7 TH/MM3 (4.0-11.0)
[2016-10-27 06:37] LABS: HEMO FLAGS AUTO DIFF
[2016-10-27 06:59] LABS: ALKALINE PHOSPHATASE 113 U/L (45-117); ALT (GPT) 138 U/L (12-78); ANION GAP 8 MEQ/L (5-15); AST (GOT) 37 U/L (15-37); BICARBONATE 33.1 MEQ/L (21.0-32.0); BLOOD UREA NITROGEN 12 MG/DL (7-18); CHLORIDE 96 MEQ/L (98-107); GLOMERULAR FILTRATION RATE 99 ML/MIN (>89); POTASSIUM 3.6 MEQ/L (3.5-5.1); SODIUM (NA) 137 MEQ/L (136-145); TOTAL BILIRUBIN ADULT 0.2 MG/DL (0.2-1.0)
[2016-10-27] MEDS: SUCRALFATE 1 GM TAB PO SCH ×3 (07:12→16:34)
[2016-10-27] MEDS: LORazepam 0.5 MG TAB PO SCH ×2 (07:12→20:41)
[2016-10-27] MEDS: predniSONE 20 MG TAB PO SCH ×2 (07:12→20:41)
[2016-10-27] MEDS: FLUCONAZOLE 200 MG TAB PO SCH (07:12)
[2016-10-27] MEDS: PANTOPRAZOLE SOD 40 MG DELAYED RELEASE TAB PO SCH (07:12)
[2016-10-27] MEDS: DILTIAZEM-CD 180 MG CAP ER PO SCH (07:12)
[2016-10-27] MEDS: POTASSIUM CHLORIDE 10 MEQ CONTROLLED RELEASE TAB PO SCH ×2 (07:12→20:40)
[2016-10-27 07:13] LABS: INTERNATIONAL NORMALIZED RATIO 2.7 RATIO; PROTHROMBIN TIME - PATIENT 31.4 SEC (9.8-11.6)
[2016-10-27] MEDS: POLYETHYLENE GLYCOL 17 GM PKG PO PRN (07:13)
[2016-10-27] MEDS: FUROSEMIDE 40 MG/4 ML VIAL IV PUSH SCH ×2 (07:13→16:34)
[2016-10-27] MEDS: traMADol HCL 50 MG TAB PO PRN ×2 (07:13→14:54)
[2016-10-27] MEDS: BUDESONIDE-FORMOTEROL 160/4.5 MCG INHALER INH SCH ×2 (07:14→20:52)
[2016-10-27 08:05] LABS: BANDS 1 % (0-6); CORRECTED NUCLEATED RBC 2 /100 WBC (0-0); EOSINOPHILS 3 % (0-4); MYELOCYTES 5 % (0-0); NEUTROPHIL # MANUAL DIFF 5.2 TH/MM3 (1.8-7.7); POLYS (SEG NEUTROPHILS) 69 % (16-70); PROMYELOCYTES 2 % (0-0); WBC DIFF SAMPLE 100
[2016-10-27 08:06] LABS: PLATELET ESTIMATE SMEAR NORMAL (NORMAL); PLATELET MORPHOLOGY NORMAL (NORMAL); POLYCHROMASIA 2.5 % (0.0-1.9); SCAN/DIFF FINAL DIFF MANUAL
[2016-10-27] MEDS: ACETAMINOPHEN/HYDROcodone 325 MG/7.5 MG TAB PO PRN ×2 (10:22→20:46)
[2016-10-27 10:32] LABS: INTERNATIONAL NORMALIZED RATIO 2.7 RATIO; PROTHROMBIN TIME - PATIENT 31.4 SEC (9.8-11.6)
--- NOTE | 2016-10-27 12:54 | HHI.PR ---
Subjective Remarks no sob no fever or chill no cough or sputum Objective Vital Signs Date Time Temp Pulse Resp B/P Pulse Ox O2 Delivery O2 Flow Rate FiO2 10/27/16 10:33 Nasal Cannula 2.00 Humidified 10/27/16 08:00 96.5 100 18 132/96 98 10/27/16 07:34 98 Nasal Cannula 2.00 10/27/16 07:24 Nasal Cannula 2.00 Humidified 10/27/16 04:17 98 Nasal Cannula 2.00 10/27/16 00:32 98 Nasal Cannula 2.00 10/27/16 00:25 97.1 100 18 142/98 97 10/26/16 20:25 96.1 123 19 144/97 97 10/26/16 19:16 Nasal Cannula 2.50 Humidified 10/26/16 18:08 Nasal Cannula 3.00 Humidified 10/26/16 16:07 97.1 105 18 130/92 97 10/26/16 15:54 93 Nasal Cannula 2.00 I/O 10/26/16 10/26/16 10/26/16 10/27/16 10/27/16 10/27/16 07:00 15:00 23:00 07:00 15:00 23:00 Intake Total 720 ml 1440 ml 817 ml 240 ml Output Total 1075 ml 800 ml 1600 ml 350 ml Balance -355 ml 640 ml -783 ml -110 ml Intake Oral 720 ml 1440 ml 720 ml 240 ml IV Total 97 ml Output Urine Total 1075 ml 800 ml 1600 ml 350 ml # Bowel Movements 0 1 0 0 Result Diagram: 10/27/16 0543 10/27/16 0543 Objective Remarks GENERAL: SKIN: Warm and dry. HEAD: Atraumatic. Normocephalic. EYES: Pupils equal and round. No scleral icterus. No injection or drainage. ENT: No nasal bleeding or discharge. Mucous membranes pink and moist. NECK: Trachea midline. No JVD. CARDIOVASCULAR: Regular rate and rhythm. RESPIRATORY: No accessory muscle use. Clear to auscultation. Breath sounds equal bilaterally. GASTROINTESTINAL: Abdomen soft, non-tender, nondistended. Hepatic and splenic margins not palpable. MUSCULOSKELETAL: Extremities without clubbing, cyanosis, or edema. No obvious deformities. NEUROLOGICAL: Awake and alert. No obvious cranial nerve deficits. Motor grossly within normal limits. Five out of 5 muscle strength in the arms and legs. Normal speech. PSYCHIATRIC: Appropriate mood and affect; insight and judgment normal. Assessment and Plan Assessment and Plan pulm improving with occasional whheze DVT/PE ON COUMADIN ContINUE o2 THERAPY INCREASE ACTIVITY bronchodilators taper steroids as tolerated Mary Hernandez MD Oct 27, 2016 12:54
[2016-10-27] MEDS: WARFARIN SOD 2 MG TAB PO SCH (14:53)
[2016-10-27] MEDS: MICAFUNGIN INJ 150 MG in SODIUM CHLORIDE 0.9% INJ 100 ML IV SCH (16:39)
[2016-10-27] MEDS: ONDANSETRON HCL 4 MG/2 ML VIAL IV PUSH PRN (18:30)
[2016-10-27] MEDS: MONTELUKAST SODIUM 10 MG TAB PO SCH (20:41)
[2016-10-27] MEDS: ATORVASTATIN 20 MG TAB PO SCH (20:41)
[2016-10-27] MEDS: INSULIN DETEMIR 100 UNITS/ML VIAL SQ SCH (20:43)
[2016-10-27] MEDS: PROMETHAZINE/CODEINE 6.25 MG/10 MG/5 ML CUP PO PRN (20:46)
[2016-10-28] VITALS (8 sets, daily range): BP systolic 129–148; BP diastolic 80–95; PULSE 98–115; RESP 18–20; TEMP 96.2–97.1; O2SAT 95–99
[2016-10-28] MEDS: RESP: ALBUTEROL 2.5 MG/IPRATROPIUM 0.5 MG NEB (PRN) NEB ×6 (04:14→23:51)
[2016-10-28] MEDS: oxyCODONE HCL 20 MG CONTROLLED RELEASE TAB PO SCH ×2 (05:52→18:14)
[2016-10-28] MEDS: INSULIN ASPART SUPPLEMENTAL SCALE SQ SCH ×4 (06:30→20:59)
[2016-10-28 07:16] LABS: AUTOMATED NEUTROPHIL # 4.9 TH/MM3 (1.8-7.7); BASOPHIL % 0.3 % (0.0-2.0); EOSINOPHIL % 0.4 % (0.0-4.0); HEMATOCRIT 29.8 % (39.0-51.0); LYMPH % 11.5 % (9.0-44.0); LYMPHOCYTE # 0.7 TH/MM3 (1.0-4.8); MEAN CELL VOLUME 75.7 FL (80.0-100.0); MEAN CORPUSCULAR HEMOGLOBIN 24.4 PG (27.0-34.0); MEAN CORPUSCULAR HGB CONC 32.2 % (32.0-36.0); MONO % 8.2 % (0.0-8.0); NEUT % 79.6 % (16.0-70.0); PLATELET COUNT 354 TH/MM3 (150-450); RED BLOOD COUNT 3.93 MIL/MM3 (4.50-5.90); RED CELL DISTRIBUTION WIDTH 22.7 % (11.6-17.2); WHITE BLOOD COUNT 6.1 TH/MM3 (4.0-11.0)
[2016-10-28 07:18] LABS: HEMO FLAGS AUTO DIFF
[2016-10-28 07:19] LABS: INTERNATIONAL NORMALIZED RATIO 3.2 RATIO; PROTHROMBIN TIME - PATIENT 37.1 SEC (9.8-11.6)
[2016-10-28 07:49] LABS: ALKALINE PHOSPHATASE 115 U/L (45-117); ALT (GPT) 141 U/L (12-78); ANION GAP 10 MEQ/L (5-15); AST (GOT) 36 U/L (15-37); BLOOD UREA NITROGEN 10 MG/DL (7-18); CHLORIDE 93 MEQ/L (98-107); GLOMERULAR FILTRATION RATE 108 ML/MIN (>89); POTASSIUM 3.6 MEQ/L (3.5-5.1); SODIUM (NA) 135 MEQ/L (136-145); TOTAL BILIRUBIN ADULT 0.3 MG/DL (0.2-1.0)
--- NOTE | 2016-10-28 08:33 | HHI.PR ---
Subjective History of Present Illness Patient have sever wheezing not able to walk because of SOB/ Wheezing.. Right hip pain better. INR 3.1 on coumadin 2 mg PO Daily...hold coumadin for 2 days. monitor INR.. Leg edema on Lasix 40 mg IV BID...better .. high LFTs monitoring Review of Systems Constitutional Constitutional: Fatigue, Weakness Pulmonary Respiratory: Shortness of Breath, Wheezing Musculoskeletal MS Remarks Right Hip pain/ swelling. Integumentary Skin Remarks right hip bruise. Vitals/Results Intake & Output 10/27/16 10/27/16 10/28/16 15:00 23:00 07:00 Intake Total 1200 ml 480 ml 240 ml Output Total 1850 ml 950 ml 1500 ml Balance -650 ml -470 ml -1260 ml Intake Oral 1200 ml 480 ml 240 ml Output Urine Total 1850 ml 950 ml 1500 ml # Voids 0 # Bowel Movements 0 0 Vital Signs Vital Signs Date Time Temp Pulse Resp B/P Pulse Ox O2 Delivery O2 Flow Rate FiO2 10/28/16 07:05 Nasal Cannula 2.00 Humidified 10/28/16 00:15 96.2 100 18 135/94 98 10/27/16 20:25 96 Nasal Cannula 2.00 10/27/16 19:37 Nasal Cannula 2.00 Humidified 10/27/16 18:30 96.4 111 18 126/92 98 10/27/16 16:42 Nasal Cannula 2.00 Humidified 10/27/16 16:30 96.1 102 17 133/88 96 10/27/16 12:07 96.8 94 18 136/86 95 10/27/16 10:33 Nasal Cannula 2.00 Humidified CBC/BMP: 10/28/16 0604 10/28/16 0604 Lab Results Laboratory Tests Test 10/27/16 10/28/16 10:10 06:04 Prothrombin Time 31.4 SEC 37.1 SEC Prothromb Time International 2.7 RATIO 3.2 RATIO Ratio White Blood Count 6.1 TH/MM3 Red Blood Count 3.93 MIL/MM3 Hemoglobin 9.6 GM/DL Hematocrit 29.8 % Mean Corpuscular Volume 75.7 FL Mean Corpuscular Hemoglobin 24.4 PG Mean Corpuscular Hemoglobin 32.2 % Concent Red Cell Distribution Width 22.7 % Platelet Count 354 TH/MM3 Mean Platelet Volume 6.6 FL Neutrophils (%) (Auto) 79.6 % Lymphocytes (%) (Auto) 11.5 % Monocytes (%) (Auto) 8.2 % Eosinophils (%) (Auto) 0.4 % Basophils (%) (Auto) 0.3 % Neutrophils # (Auto) 4.9 TH/MM3 Lymphocytes # (Auto) 0.7 TH/MM3 Monocytes # (Auto) 0.5 TH/MM3 Eosinophils # (Auto) 0.0 TH/MM3 Basophils # (Auto) 0.0 TH/MM3 CBC Comment AUTO DIFF Sodium Level 135 MEQ/L Potassium Level 3.6 MEQ/L Chloride Level 93 MEQ/L Carbon Dioxide Level 32.0 MEQ/L Anion Gap 10 MEQ/L Blood Urea Nitrogen 10 MG/DL Creatinine 0.76 MG/DL Estimat Glomerular Filtration 108 ML/MIN Rate Random Glucose 195 MG/DL Calcium Level 9.1 MG/DL Total Bilirubin 0.3 MG/DL Aspartate Amino Transf 36 U/L (AST/SGOT) Alanine Aminotransferase 141 U/L (ALT/SGPT) Alkaline Phosphatase 115 U/L Total Protein 6.4 GM/DL Albumin 3.5 GM/DL Physical Exam General General Appearance: Well Developed, No Acute Distress, Comfortable Eyes Eye Exam: Pupils Equal, Pupils Reactive Throat Throat Exam: Oral Mucosa [place] & Moist Neck Neck Exam: Neck Supple, Trachea Midline Pulmonary Resp Exam: Diminished Breath Sounds Resp Remarks Sever Bilateral Wheezing. Cardiology CV Exam: Regular, Normal Sinus Rhythm Gastrointestinal/Abdomen GI Exam: Soft, Non-Tender, Bowel Sounds Present, Non-Distended Musculoskeletal MS Exam: Normal Tone Integumentary Skin Exam: Warm, Dry Extremeties Extremities Exam: No Edema Neurologic Neuro Exam: Alert, Awake, Oriented, Speech Clear, Moving All Extremities, Instructional Materials Director Equal, No Focal Deficits Psychiatric Psych Exam: Appropriate Responses VTE Prophylaxis VTE Prophylaxis Meds: Coumadin PUD Prophylasis PUD Prophylaxis: Protonix Assessment/Plan Assessment/Plan ASSESSMENT AND PLAN: 1. Asthma exacerbation-continue oxygen, PO Prednisone, appreciate pulm input, Xopenex and Atrovent Apply humidifier to oxygen 2. History for right hip infection with fungus. The patient is on Diflucan + Micafungin.. He has right hip swelling and pain. Right hip ultrasound noted orthopedic input noted s/p needle drainage of hematoma right hip, per orthopedic not getting right hip hardware removed. S/P MRI Right hip shows 12 cm hematoma/seroma. s/p needle drainage... S/P CT Pelvis show no more hematoma collection 3. Septic right hip. The patient is on Diflucan + Micafungin... Infectious disease input noted.. Will monitor. 4. History of chronic obstructive pulmonary disease. Continue home medications. 5. History of depression. Continue home medications. 6. History of anxiety. Continue with Ativan 0.5 milligrams twice a day. 7. Right hip pain. The patient on tramadol and [place] and also Dilaudid 0.5 milligrams p.o. q. 6 hours PRN pain. 8. History of hyperlipidemia. Continue on Lipitor 20 milligrams p.o. daily. 9. History of pulmonary embolism and DVT right leg. INR 3.1 . on coumadin 2 mg PO Daily...Hold coumadin for 2 days. Will monitor INR daily. 10. High blood sugar continue with ISS + Levemir 20 units subcut. HS. monitoring blood glucose 11. Leg edema on Lasix 40 mg IV BID DVT prophylaxis. . INR 3.1 . on coumadin 2 mg PO Daily..Hold coumadin for 2 days. GI prophylaxis. Protonix 40 milligrams p.o. daily/ Carafate 1 gram p.o. three times a day. DC plan in progress, IV Abx being arranged for OP . Discussed Condition with: Patient Myron Woodward MD Oct 28, 2016 08:33
[2016-10-28] MEDS: LORazepam 0.5 MG TAB PO SCH ×2 (08:51→20:58)
[2016-10-28] MEDS: POTASSIUM CHLORIDE 10 MEQ CONTROLLED RELEASE TAB PO SCH ×2 (08:51→20:58)
[2016-10-28] MEDS: FLUCONAZOLE 200 MG TAB PO SCH (08:51)
[2016-10-28] MEDS: predniSONE 20 MG TAB PO SCH ×2 (08:51→20:58)
[2016-10-28] MEDS: PANTOPRAZOLE SOD 40 MG DELAYED RELEASE TAB PO SCH (08:51)
[2016-10-28] MEDS: DILTIAZEM-CD 180 MG CAP ER PO SCH (08:51)
[2016-10-28] MEDS: FUROSEMIDE 40 MG/4 ML VIAL IV PUSH SCH ×2 (08:51→18:15)
[2016-10-28] MEDS: SUCRALFATE 1 GM TAB PO SCH ×3 (08:51→18:14)
[2016-10-28] MEDS: PROMETHAZINE/CODEINE 6.25 MG/10 MG/5 ML CUP PO PRN (08:54)
[2016-10-28] MEDS: ACETAMINOPHEN/HYDROcodone 325 MG/7.5 MG TAB PO PRN ×2 (08:55→16:25)
[2016-10-28] MEDS: BUDESONIDE-FORMOTEROL 160/4.5 MCG INHALER INH SCH ×2 (08:55→20:57)
[2016-10-28 09:48] LABS: BANDS 3 % (0-6); MYELOCYTES 5 % (0-0); NEUTROPHIL # MANUAL DIFF 4.5 TH/MM3 (1.8-7.7); OVALOCYTES 1+ (NORMAL); PLATELET ESTIMATE SMEAR NORMAL (NORMAL); PLATELET MORPHOLOGY NORMAL (NORMAL); POLYS (SEG NEUTROPHILS) 65 % (16-70); WBC DIFF SAMPLE 100
[2016-10-28 09:49] LABS: SCAN/DIFF FINAL DIFF MANUAL
[2016-10-28 11:29] LABS: INTERNATIONAL NORMALIZED RATIO 3.1 RATIO; PROTHROMBIN TIME - PATIENT 36.3 SEC (9.8-11.6)
[2016-10-28] MEDS: traMADol HCL 50 MG TAB PO PRN ×2 (11:32→20:57)
[2016-10-28] MEDS: MICAFUNGIN INJ 150 MG in SODIUM CHLORIDE 0.9% INJ 100 ML IV SCH (16:25)
--- NOTE | 2016-10-28 17:26 | HHI.PR ---
Subjective Remarks no sob no fever or chill no cough or sputum Objective Vital Signs Date Time Temp Pulse Resp B/P Pulse Ox O2 Delivery O2 Flow Rate FiO2 10/28/16 12:00 97.0 99 18 133/93 96 10/28/16 08:01 98 Nasal Cannula 2.00 10/28/16 07:38 96.7 98 19 148/95 99 10/28/16 07:05 Nasal Cannula 2.00 Humidified 10/28/16 00:15 96.2 100 18 135/94 98 10/27/16 20:25 96 Nasal Cannula 2.00 10/27/16 19:37 Nasal Cannula 2.00 Humidified 10/27/16 18:30 96.4 111 18 126/92 98 I/O 10/27/16 10/27/16 10/27/16 10/28/16 10/28/16 10/28/16 07:00 15:00 23:00 07:00 15:00 23:00 Intake Total 240 ml 1200 ml 480 ml 240 ml Output Total 350 ml 1850 ml 950 ml 1500 ml Balance -110 ml -650 ml -470 ml -1260 ml Intake Oral 240 ml 1200 ml 480 ml 240 ml Output Urine Total 350 ml 1850 ml 950 ml 1500 ml # Voids 0 # Bowel Movements 0 0 0 Result Diagram: 10/28/16 0604 10/28/16 0604 Objective Remarks GENERAL: SKIN: Warm and dry. HEAD: Atraumatic. Normocephalic. EYES: Pupils equal and round. No scleral icterus. No injection or drainage. ENT: No nasal bleeding or discharge. Mucous membranes pink and moist. NECK: Trachea midline. No JVD. CARDIOVASCULAR: Regular rate and rhythm. RESPIRATORY: No accessory muscle use. Clear to auscultation. Breath sounds equal bilaterally. GASTROINTESTINAL: Abdomen soft, non-tender, nondistended. Hepatic and splenic margins not palpable. MUSCULOSKELETAL: Extremities without clubbing, cyanosis, or edema. No obvious deformities. NEUROLOGICAL: Awake and alert. No obvious cranial nerve deficits. Motor grossly within normal limits. Five out of 5 muscle strength in the arms and legs. Normal speech. PSYCHIATRIC: Appropriate mood and affect; insight and judgment normal. Assessment and Plan Assessment and Plan pulm improving with occasional whheze DVT/PE ON COUMADIN ContINUE o2 THERAPY INCREASE ACTIVITY bronchodilators taper steroids as tolerated Mary Hernandez MD Oct 28, 2016 17:26
[2016-10-28] MEDS: MONTELUKAST SODIUM 10 MG TAB PO SCH (20:58)
[2016-10-28] MEDS: ATORVASTATIN 20 MG TAB PO SCH (20:58)
[2016-10-28] MEDS: INSULIN DETEMIR 100 UNITS/ML VIAL SQ SCH (20:59)
[2016-10-29] MEDS: ACETAMINOPHEN/HYDROcodone 325 MG/7.5 MG TAB PO PRN ×3 (00:31→20:17)
[2016-10-29] MEDS: RESP: ALBUTEROL 2.5 MG/IPRATROPIUM 0.5 MG NEB (PRN) NEB ×5 (03:38→20:56)
[2016-10-29] MEDS: oxyCODONE HCL 20 MG CONTROLLED RELEASE TAB PO SCH ×2 (06:38→17:03)
[2016-10-29] MEDS: INSULIN ASPART SUPPLEMENTAL SCALE SQ SCH ×4 (06:39→20:19)
[2016-10-29 07:04] LABS: AUTOMATED NEUTROPHIL # 6.1 TH/MM3 (1.8-7.7); BASOPHIL % 0.2 % (0.0-2.0); EOSINOPHIL % 0.4 % (0.0-4.0); HEMATOCRIT 30.1 % (39.0-51.0); LYMPH % 8.4 % (9.0-44.0); LYMPHOCYTE # 0.6 TH/MM3 (1.0-4.8); MEAN CELL VOLUME 75.9 FL (80.0-100.0); MEAN CORPUSCULAR HEMOGLOBIN 24.2 PG (27.0-34.0); MEAN CORPUSCULAR HGB CONC 31.9 % (32.0-36.0); MONO % 6.7 % (0.0-8.0); NEUT % 84.3 % (16.0-70.0); PLATELET COUNT 344 TH/MM3 (150-450); RED BLOOD COUNT 3.97 MIL/MM3 (4.50-5.90); RED CELL DISTRIBUTION WIDTH 22.9 % (11.6-17.2); WHITE BLOOD COUNT 7.3 TH/MM3 (4.0-11.0)
[2016-10-29 07:07] LABS: INTERNATIONAL NORMALIZED RATIO 3.2 RATIO; PROTHROMBIN TIME - PATIENT 37.4 SEC (9.8-11.6)
[2016-10-29 07:16] LABS: HEMO FLAGS AUTO DIFF
[2016-10-29 07:37] LABS: ALT (GPT) 131 U/L (12-78); ANION GAP 7 MEQ/L (5-15); AST (GOT) 34 U/L (15-37); BICARBONATE 31.6 MEQ/L (21.0-32.0); BLOOD UREA NITROGEN 15 MG/DL (7-18); CHLORIDE 98 MEQ/L (98-107); GLOMERULAR FILTRATION RATE 103 ML/MIN (>89); POTASSIUM 3.9 MEQ/L (3.5-5.1); SODIUM (NA) 137 MEQ/L (136-145)
[2016-10-29 07:39] LABS: ALKALINE PHOSPHATASE 110 U/L (45-117); TOTAL BILIRUBIN ADULT 0.3 MG/DL (0.2-1.0)
[2016-10-29 08:00] VITALS: BP 147/94; PULSE 103; RESP 18; TEMP 96.7; O2SAT 95
[2016-10-29 08:13] LABS: BANDS 6 % (0-6); METAMYELOCYTES 2 % (0-1); MYELOCYTES 6 % (0-0); NEUTROPHIL # MANUAL DIFF 6.4 TH/MM3 (1.8-7.7); OVALOCYTES 1+ (NORMAL); POLYS (SEG NEUTROPHILS) 73 % (16-70); PROMYELOCYTES 1 % (0-0); WBC DIFF SAMPLE 100
[2016-10-29 08:14] LABS: HELMET CELLS OCC (NORMAL); TEARDROP RBCS 1+ (NORMAL)
--- NOTE | 2016-10-29 08:14 | HHI.PR ---
Subjective History of Present Illness Patient have sever wheezing not able to walk because of SOB/ Wheezing.. Right hip pain better. INR 2.9 on coumadin 2 mg PO Daily...hold coumadin for 2 days. monitor INR.. Leg edema on Lasix 40 mg IV BID...better .. high LFTs monitoring Review of Systems Constitutional Constitutional: Fatigue, Weakness Pulmonary Respiratory: Shortness of Breath, Wheezing Musculoskeletal MS Remarks Right Hip pain/ swelling. Integumentary Skin Remarks right hip bruise. Vitals/Results Intake & Output 10/28/16 10/28/16 10/29/16 15:00 23:00 07:00 Intake Total 1920 ml 1020 ml 960 ml Output Total 1200 ml 1200 ml 1350 ml Balance 720 ml -180 ml -390 ml Intake Oral 1920 ml 1020 ml 960 ml Output Urine Total 1200 ml 1200 ml 1350 ml # Bowel Movements 1 1 0 Vital Signs Vital Signs Date Time Temp Pulse Resp B/P Pulse Ox O2 Delivery O2 Flow Rate FiO2 10/28/16 23:45 97.0 107 20 146/95 96 10/28/16 20:21 96 Nasal Cannula 3.00 10/28/16 19:50 97.1 115 19 137/87 96 10/28/16 18:53 Nasal Cannula 2.00 Humidified 10/28/16 16:00 96.5 101 18 129/80 95 10/28/16 12:00 97.0 99 18 133/93 96 CBC/BMP: 10/29/16 0630 10/29/16 0630 Lab Results Laboratory Tests Test 10/28/16 10/29/16 10:50 06:30 Prothrombin Time 36.3 SEC 37.4 SEC Prothromb Time International 3.1 RATIO 3.2 RATIO Ratio White Blood Count 7.3 TH/MM3 Red Blood Count 3.97 MIL/MM3 Hemoglobin 9.6 GM/DL Hematocrit 30.1 % Mean Corpuscular Volume 75.9 FL Mean Corpuscular Hemoglobin 24.2 PG Mean Corpuscular Hemoglobin 31.9 % Concent Red Cell Distribution Width 22.9 % Platelet Count 344 TH/MM3 Mean Platelet Volume 6.5 FL Neutrophils (%) (Auto) 84.3 % Lymphocytes (%) (Auto) 8.4 % Monocytes (%) (Auto) 6.7 % Eosinophils (%) (Auto) 0.4 % Basophils (%) (Auto) 0.2 % Neutrophils # (Auto) 6.1 TH/MM3 Lymphocytes # (Auto) 0.6 TH/MM3 Monocytes # (Auto) 0.5 TH/MM3 Eosinophils # (Auto) 0.0 TH/MM3 Basophils # (Auto) 0.0 TH/MM3 CBC Comment AUTO DIFF Sodium Level 137 MEQ/L Potassium Level 3.9 MEQ/L Chloride Level 98 MEQ/L Carbon Dioxide Level 31.6 MEQ/L Anion Gap 7 MEQ/L Blood Urea Nitrogen 15 MG/DL Creatinine 0.79 MG/DL Estimat Glomerular Filtration 103 ML/MIN Rate Random Glucose 169 MG/DL Calcium Level 9.0 MG/DL Total Bilirubin 0.3 MG/DL Aspartate Amino Transf 34 U/L (AST/SGOT) Alanine Aminotransferase 131 U/L (ALT/SGPT) Alkaline Phosphatase 110 U/L Total Protein 6.3 GM/DL Albumin 3.5 GM/DL Physical Exam General General Appearance: Well Developed, No Acute Distress, Comfortable Eyes Eye Exam: Pupils Equal, Pupils Reactive Throat Throat Exam: Oral Mucosa [place] & Moist Neck Neck Exam: Neck Supple, Trachea Midline Pulmonary Resp Exam: Diminished Breath Sounds Resp Remarks Sever Bilateral Wheezing. Cardiology CV Exam: Regular, Normal Sinus Rhythm Gastrointestinal/Abdomen GI Exam: Soft, Non-Tender, Bowel Sounds Present, Non-Distended Musculoskeletal MS Exam: Normal Tone Integumentary Skin Exam: Warm, Dry Extremeties Extremities Exam: No Edema Neurologic Neuro Exam: Alert, Awake, Oriented, Speech Clear, Moving All Extremities, Dyed Raw Stock Blower Feeder Equal, No Focal Deficits Psychiatric Psych Exam: Appropriate Responses VTE Prophylaxis VTE Prophylaxis Meds: Coumadin PUD Prophylasis PUD Prophylaxis: Protonix Assessment/Plan Assessment/Plan ASSESSMENT AND PLAN: 1. Asthma exacerbation-continue oxygen, PO Prednisone, appreciate pulm input, Xopenex and Atrovent Apply humidifier to oxygen 2. History for right hip infection with fungus. The patient is on Diflucan + Micafungin.. He has right hip swelling and pain. Right hip ultrasound noted orthopedic input noted s/p needle drainage of hematoma right hip, per orthopedic not getting right hip hardware removed. S/P MRI Right hip shows 12 cm hematoma/seroma. s/p needle drainage... S/P CT Pelvis show no more hematoma collection 3. Septic right hip. The patient is on Diflucan + Micafungin... Infectious disease input noted.. Will monitor. 4. History of chronic obstructive pulmonary disease. Continue home medications. 5. History of depression. Continue home medications. 6. History of anxiety. Continue with Ativan 0.5 milligrams twice a day. 7. Right hip pain. The patient on tramadol and [place] and also Dilaudid 0.5 milligrams p.o. q. 6 hours PRN pain. 8. History of hyperlipidemia. Continue on Lipitor 20 milligrams p.o. daily. 9. History of pulmonary embolism and DVT right leg. INR 2.9 was on coumadin 2 mg PO Daily...Hold coumadin for 2 days. Will monitor INR daily. 10. High blood sugar continue with ISS + Levemir 20 units subcut. HS. monitoring blood glucose 11. Leg edema on Lasix 40 mg IV BID DVT prophylaxis. . INR 2.9 . ..Hold coumadin for 2 days. GI prophylaxis. Protonix 40 milligrams p.o. daily/ Carafate 1 gram p.o. three times a day. DC plan in progress, IV Abx being arranged for OP . Discussed Condition with: Patient Myron Woodward MD Oct 29, 2016 08:14
[2016-10-29 08:15] LABS: ACANTHOCYTES OCC (NORMAL); PLATELET ESTIMATE SMEAR NORMAL (NORMAL); PLATELET MORPHOLOGY NORMAL (NORMAL); SCAN/DIFF FINAL DIFF MANUAL
[2016-10-29] MEDS: DILTIAZEM-CD 180 MG CAP ER PO SCH (09:03)
[2016-10-29] MEDS: POTASSIUM CHLORIDE 10 MEQ CONTROLLED RELEASE TAB PO SCH ×2 (09:03→20:17)
[2016-10-29] MEDS: predniSONE 20 MG TAB PO SCH ×2 (09:03→20:17)
[2016-10-29] MEDS: FLUCONAZOLE 200 MG TAB PO SCH (09:03)
[2016-10-29] MEDS: LORazepam 0.5 MG TAB PO SCH ×2 (09:03→20:17)
[2016-10-29] MEDS: SUCRALFATE 1 GM TAB PO SCH ×3 (09:03→17:02)
[2016-10-29] MEDS: FUROSEMIDE 40 MG/4 ML VIAL IV PUSH SCH ×2 (09:04→17:03)
[2016-10-29] MEDS: PANTOPRAZOLE SOD 40 MG DELAYED RELEASE TAB PO SCH (09:05)
[2016-10-29] MEDS: BUDESONIDE-FORMOTEROL 160/4.5 MCG INHALER INH SCH ×2 (09:06→20:16)
[2016-10-29 10:10] LABS: INTERNATIONAL NORMALIZED RATIO 2.9 RATIO
[2016-10-29 12:00] VITALS: BP 139/108; PULSE 104; RESP 18; TEMP 96.8; O2SAT 94
[2016-10-29] MEDS: traMADol HCL 50 MG TAB PO PRN (12:55)
[2016-10-29] MEDS: ONDANSETRON HCL 4 MG/2 ML VIAL IV PUSH PRN (12:55)
[2016-10-29 16:00] VITALS: BP 137/94; PULSE 116; RESP 18; TEMP 96.9; O2SAT 97
--- NOTE | 2016-10-29 16:02 | HHI.PR ---
Subjective Remarks no sob no fever or chill no cough or sputum Objective Vital Signs Date Time Temp Pulse Resp B/P Pulse Ox O2 Delivery O2 Flow Rate FiO2 10/29/16 13:55 17 10/29/16 12:00 96.8 104 18 139/108 94 10/29/16 10:08 18 10/29/16 08:00 96.7 103 18 147/94 95 10/28/16 23:45 97.0 107 20 146/95 96 10/28/16 20:21 96 Nasal Cannula 3.00 10/28/16 19:50 97.1 115 19 137/87 96 10/28/16 18:53 Nasal Cannula 2.00 Humidified I/O 10/28/16 10/28/16 10/28/16 10/29/16 10/29/16 10/29/16 07:00 15:00 23:00 07:00 15:00 23:00 Intake Total 240 ml 1920 ml 1020 ml 960 ml Output Total 1500 ml 1200 ml 1200 ml 1350 ml Balance -1260 ml 720 ml -180 ml -390 ml Intake Oral 240 ml 1920 ml 1020 ml 960 ml Output Urine Total 1500 ml 1200 ml 1200 ml 1350 ml # Bowel Movements 0 1 1 0 Result Diagram: 10/29/1630 10/29/16 0630 Objective Remarks GENERAL: SKIN: Warm and dry. HEAD: Atraumatic. Normocephalic. EYES: Pupils equal and round. No scleral icterus. No injection or drainage. ENT: No nasal bleeding or discharge. Mucous membranes pink and moist. NECK: Trachea midline. No JVD. CARDIOVASCULAR: Regular rate and rhythm. RESPIRATORY: No accessory muscle use. Clear to auscultation. Breath sounds equal bilaterally. GASTROINTESTINAL: Abdomen soft, non-tender, nondistended. Hepatic and splenic margins not palpable. MUSCULOSKELETAL: Extremities without clubbing, cyanosis, or edema. No obvious deformities. NEUROLOGICAL: Awake and alert. No obvious cranial nerve deficits. Motor grossly within normal limits. Five out of 5 muscle strength in the arms and legs. Normal speech. PSYCHIATRIC: Appropriate mood and affect; insight and judgment normal. Assessment and Plan Assessment and Plan pulm improving with occasional whheze DVT/PE ON COUMADIN ContINUE o2 THERAPY INCREASE ACTIVITY bronchodilators taper steroids as tolerated Discharge Planning GENERAL: SKIN: Warm and dry. HEAD: Atraumatic. Normocephalic. EYES: Pupils equal and round. No scleral icterus. No injection or drainage. ENT: No nasal bleeding or discharge. Mucous membranes pink and moist. NECK: Trachea midline. No JVD. CARDIOVASCULAR: Regular rate and rhythm. RESPIRATORY: No accessory muscle use. Clear to auscultation. Breath sounds equal bilaterally. GASTROINTESTINAL: Abdomen soft, non-tender, nondistended. Hepatic and splenic margins not palpable. MUSCULOSKELETAL: Extremities without clubbing, cyanosis, or edema. No obvious deformities. NEUROLOGICAL: Awake and alert. No obvious cranial nerve deficits. Motor grossly within normal limits. Five out of 5 muscle strength in the arms and legs. Normal speech. PSYCHIATRIC: Appropriate mood and affect; insight and judgment normal. Mary,Mary Dutton MD Oct 29, 2016 16:02
[2016-10-29] MEDS: MICAFUNGIN INJ 150 MG in SODIUM CHLORIDE 0.9% INJ 100 ML IV SCH (17:02)
[2016-10-29] MEDS: ATORVASTATIN 20 MG TAB PO SCH (20:17)
[2016-10-29] MEDS: MONTELUKAST SODIUM 10 MG TAB PO SCH (20:18)
[2016-10-29] MEDS: INSULIN DETEMIR 100 UNITS/ML VIAL SQ SCH (20:19)
[2016-10-29 20:20] VITALS: BP 133/95; PULSE 101; RESP 19; TEMP 96.7; O2SAT 95
[2016-10-29] MEDS: POLYETHYLENE GLYCOL 17 GM PKG PO PRN (20:20)
[2016-10-29 20:57] VITALS: O2SAT 96
[2016-10-30] VITALS (7 sets, daily range): BP systolic 118–140; BP diastolic 75–97; PULSE 88–118; RESP 18; TEMP 96.2–97; O2SAT 94–99
[2016-10-30] MEDS: RESP: ALBUTEROL 2.5 MG/IPRATROPIUM 0.5 MG NEB (PRN) NEB ×4 (00:11→19:35)
[2016-10-30] MEDS: INSULIN ASPART SUPPLEMENTAL SCALE SQ SCH ×4 (05:54→20:53)
[2016-10-30] MEDS: oxyCODONE HCL 20 MG CONTROLLED RELEASE TAB PO SCH ×3 (05:54→17:17)
[2016-10-30 06:53] LABS: INTERNATIONAL NORMALIZED RATIO 2.1 RATIO; PROTHROMBIN TIME - PATIENT 24.1 SEC (9.8-11.6)
[2016-10-30] MEDS: FLUCONAZOLE 200 MG TAB PO SCH (08:16)
[2016-10-30] MEDS: DILTIAZEM-CD 180 MG CAP ER PO SCH (08:16)
[2016-10-30] MEDS: POTASSIUM CHLORIDE 10 MEQ CONTROLLED RELEASE TAB PO SCH ×2 (08:17→20:48)
[2016-10-30] MEDS: FUROSEMIDE 40 MG/4 ML VIAL IV PUSH SCH ×2 (08:17→17:16)
[2016-10-30] MEDS: predniSONE 20 MG TAB PO SCH ×2 (08:17→20:46)
[2016-10-30] MEDS: PANTOPRAZOLE SOD 40 MG DELAYED RELEASE TAB PO SCH (08:17)
[2016-10-30] MEDS: LORazepam 0.5 MG TAB PO SCH ×2 (08:17→20:46)
[2016-10-30] MEDS: SUCRALFATE 1 GM TAB PO SCH ×3 (08:17→16:40)
[2016-10-30] MEDS: BUDESONIDE-FORMOTEROL 160/4.5 MCG INHALER INH SCH ×2 (08:18→20:53)
[2016-10-30] MEDS: ACETAMINOPHEN/HYDROcodone 325 MG/7.5 MG TAB PO PRN ×2 (08:20→20:50)
[2016-10-30] MEDS: traMADol HCL 50 MG TAB PO PRN (11:43)
[2016-10-30 12:55] LABS: PROTHROMBIN TIME - PATIENT 22.5 SEC (9.8-11.6)
[2016-10-30] MEDS: MICAFUNGIN INJ 150 MG in SODIUM CHLORIDE 0.9% INJ 100 ML IV SCH (16:39)
--- NOTE | 2016-10-30 16:48 | HHI.PR ---
Subjective Remarks no sob no fever or chill no cough or sputum OCCASIONAL WHEEZE Objective Vital Signs Date Time Temp Pulse Resp B/P Pulse Ox O2 Delivery O2 Flow Rate FiO2 10/30/16 15:40 96.9 115 18 137/89 99 10/30/16 12:00 96.5 92 18 121/89 95 10/30/16 09:20 17 10/30/16 08:34 98 Nasal Cannula 2.00 10/30/16 08:00 96.4 88 18 136/97 95 10/30/16 07:00 Nasal Cannula 2.00 10/30/16 00:00 97.0 99 18 118/75 94 10/29/16 20:57 96 Nasal Cannula 3.00 10/29/16 20:20 96.7 101 19 133/95 95 10/29/16 19:24 Nasal Cannula 2.00 Humidified 10/29/16 18:42 17 I/O 10/29/16 10/29/16 10/29/16 10/30/16 10/30/16 10/30/16 07:00 15:00 23:00 07:00 15:00 23:00 Intake Total 960 ml 1200 ml 960 ml 960 ml 1250 ml Output Total 1350 ml 1600 ml Balance -390 ml 1200 ml 960 ml -640 ml 1250 ml Intake Oral 960 ml 1200 ml 960 ml 960 ml 1250 ml Output Urine Total 1350 ml 1600 ml # Voids 6 5 7 # Bowel Movements 0 2 2 0 1 Result Diagram: 10/29/1630 10/29/16 0630 Objective Remarks GENERAL: SKIN: Warm and dry. HEAD: Atraumatic. Normocephalic. EYES: Pupils equal and round. No scleral icterus. No injection or drainage. ENT: No nasal bleeding or discharge. Mucous membranes pink and moist. NECK: Trachea midline. No JVD. CARDIOVASCULAR: Regular rate and rhythm. RESPIRATORY: No accessory muscle use. Clear to auscultation. Breath sounds equal bilaterally. GASTROINTESTINAL: Abdomen soft, non-tender, nondistended. Hepatic and splenic margins not palpable. MUSCULOSKELETAL: Extremities without clubbing, cyanosis, or edema. No obvious deformities. NEUROLOGICAL: Awake and alert. No obvious cranial nerve deficits. Motor grossly within normal limits. Five out of 5 muscle strength in the arms and legs. Normal speech. PSYCHIATRIC: Appropriate mood and affect; insight and judgment normal. Assessment and Plan Assessment and Plan pulm improving with occasional wheeze DVT/PE ON COUMADIN plan ContIinue O2 therapy INCREASE ACTIVITY bronchodilators taper steroids as tolerated Mary Hernandez MD Oct 30, 2016 16:48
--- NOTE | 2016-10-30 17:42 | HHI.PR ---
Subjective History of Present Illness Patient have sever wheezing not able to walk because of SOB/ Wheezing.. Right hip pain better. INR 2.0 on coumadin 2 mg PO Daily...holding coumadin . monitor INR.. Leg edema on Lasix 40 mg IV BID...better .. high LFTs monitoring Review of Systems Constitutional Constitutional: Fatigue, Weakness Pulmonary Respiratory: Shortness of Breath, Wheezing Musculoskeletal MS Remarks Right Hip pain/ swelling. Integumentary Skin Remarks right hip bruise. Vitals/Results Intake & Output 10/29/16 10/29/16 10/30/16 14:59 22:59 06:59 Intake Total 1200 ml 960 ml 960 ml Output Total 1600 ml Balance 1200 ml 960 ml -640 ml Intake Oral 1200 ml 960 ml 960 ml Output Urine Total 1600 ml # Voids 6 5 # Bowel Movements 2 2 0 Vital Signs Vital Signs Date Time Temp Pulse Resp B/P Pulse Ox O2 Delivery O2 Flow Rate FiO2 10/30/16 15:40 96.9 115 18 137/89 99 10/30/16 12:00 96.5 92 18 121/89 95 10/30/16 09:20 17 10/30/16 08:34 98 Nasal Cannula 2.00 10/30/16 08:00 96.4 88 18 136/97 95 10/30/16 07:00 Nasal Cannula 2.00 10/30/16 00:00 97.0 99 18 118/75 94 10/29/16 20:57 96 Nasal Cannula 3.00 10/29/16 20:20 96.7 101 19 133/95 95 10/29/16 19:24 Nasal Cannula 2.00 Humidified 10/29/16 18:42 17 CBC/BMP: 10/29/16 0630 10/29/16 0630 Lab Results Laboratory Tests Test 10/30/16 10/30/16 06:00 12:35 Prothrombin Time 24.1 SEC 22.5 SEC Prothromb Time International 2.1 RATIO 2.0 RATIO Ratio Physical Exam General General Appearance: Well Developed, No Acute Distress, Comfortable Eyes Eye Exam: Pupils Equal, Pupils Reactive Throat Throat Exam: Oral Mucosa [place] & Moist Neck Neck Exam: Neck Supple, Trachea Midline Pulmonary Resp Exam: Diminished Breath Sounds Resp Remarks Sever Bilateral Wheezing. Cardiology CV Exam: Regular, Normal Sinus Rhythm Gastrointestinal/Abdomen GI Exam: Soft, Non-Tender, Bowel Sounds Present, Non-Distended Musculoskeletal MS Exam: Normal Tone Integumentary Skin Exam: Warm, Dry Extremeties Extremities Exam: No Edema Neurologic Neuro Exam: Alert, Awake, Oriented, Speech Clear, Moving All Extremities, Datapower Consultant Equal, No Focal Deficits Psychiatric Psych Exam: Appropriate Responses VTE Prophylaxis VTE Prophylaxis Meds: Coumadin PUD Prophylasis PUD Prophylaxis: Protonix Assessment/Plan Assessment/Plan ASSESSMENT AND PLAN: 1. Asthma exacerbation-continue oxygen, PO Prednisone, appreciate pulm input, Xopenex and Atrovent Apply humidifier to oxygen 2. History for right hip infection with fungus. The patient is on Diflucan + Micafungin.. He has right hip swelling and pain. Right hip ultrasound noted orthopedic input noted s/p needle drainage of hematoma right hip, per orthopedic not getting right hip hardware removed. S/P MRI Right hip shows 12 cm hematoma/seroma. s/p needle drainage... S/P CT Pelvis show no more hematoma collection 3. Septic right hip. The patient is on Diflucan + Micafungin... Infectious disease input noted.. Will monitor. 4. History of chronic obstructive pulmonary disease. Continue home medications. 5. History of depression. Continue home medications. 6. History of anxiety. Continue with Ativan 0.5 milligrams twice a day. 7. Right hip pain. The patient on tramadol and [employer] and also Dilaudid 0.5 milligrams p.o. q. 6 hours PRN pain. 8. History of hyperlipidemia. Continue on Lipitor 20 milligrams p.o. daily. 9. History of pulmonary embolism and DVT right leg. INR 2.0 was on coumadin 2 mg PO Daily...Holding coumadin . Will monitor INR daily. 10. High blood sugar continue with ISS + Levemir 20 units subcut. HS. monitoring blood glucose 11. Leg edema on Lasix 40 mg IV BID DVT prophylaxis. . INR 2.0 . ..Holding coumadin. GI prophylaxis. Protonix 40 milligrams p.o. daily/ Carafate 1 gram p.o. three times a day. DC plan in progress, IV Abx being arranged for OP . Discussed Condition with: Patient Myron Woodward MD Oct 30, 2016 17:42
[2016-10-30] MEDS: MONTELUKAST SODIUM 10 MG TAB PO SCH (20:46)
[2016-10-30] MEDS: ATORVASTATIN 20 MG TAB PO SCH (20:47)
[2016-10-30] MEDS: INSULIN DETEMIR 100 UNITS/ML VIAL SQ SCH (20:52)
[2016-10-31] VITALS (7 sets, daily range): BP systolic 116–132; BP diastolic 81–90; PULSE 99–108; RESP 18; TEMP 96.5–96.8; O2SAT 95–98
[2016-10-31] MEDS: RESP: ALBUTEROL 2.5 MG/IPRATROPIUM 0.5 MG NEB (PRN) NEB ×5 (00:44→22:11)
[2016-10-31] MEDS: oxyCODONE HCL 20 MG CONTROLLED RELEASE TAB PO SCH ×2 (06:31→17:26)
[2016-10-31] MEDS: INSULIN ASPART SUPPLEMENTAL SCALE SQ SCH ×4 (06:32→21:01)
--- NOTE | 2016-10-31 06:41 | HHI.PR ---
Subjective Remarks no sob no fever or chill no cough or sputum OCCASIONAL WHEEZE Objective Vital Signs Date Time Temp Pulse Resp B/P Pulse Ox O2 Delivery O2 Flow Rate FiO2 10/31/16 03:26 96 Nasal Cannula 2.00 10/30/16 20:25 96.2 118 18 140/95 96 10/30/16 19:35 97 Nasal Cannula 2.00 10/30/16 18:49 Nasal Cannula 2.00 Humidified 10/30/16 18:23 17 10/30/16 15:40 96.9 115 18 137/89 99 10/30/16 12:00 96.5 92 18 121/89 95 10/30/16 09:20 17 10/30/16 08:34 98 Nasal Cannula 2.00 10/30/16 08:00 96.4 88 18 136/97 95 10/30/16 07:00 Nasal Cannula 2.00 I/O 10/30/16 10/30/16 10/30/16 10/31/16 10/31/16 10/31/16 07:00 15:00 23:00 07:00 15:00 23:00 Intake Total 960 ml 1250 ml 720 ml Output Total 1600 ml Balance -640 ml 1250 ml 720 ml Intake Oral 960 ml 1250 ml 720 ml Output Urine Total 1600 ml # Voids 7 2 # Bowel Movements 0 1 0 Result Diagram: 10/29/1630 10/29/16 0630 Objective Remarks GENERAL: SKIN: Warm and dry. HEAD: Atraumatic. Normocephalic. EYES: Pupils equal and round. No scleral icterus. No injection or drainage. ENT: No nasal bleeding or discharge. Mucous membranes pink and moist. NECK: Trachea midline. No JVD. CARDIOVASCULAR: Regular rate and rhythm. RESPIRATORY: No accessory muscle use. Clear to auscultation. Breath sounds equal bilaterally. GASTROINTESTINAL: Abdomen soft, non-tender, nondistended. Hepatic and splenic margins not palpable. MUSCULOSKELETAL: Extremities without clubbing, cyanosis, or edema. No obvious deformities. NEUROLOGICAL: Awake and alert. No obvious cranial nerve deficits. Motor grossly within normal limits. Five out of 5 muscle strength in the arms and legs. Normal speech. PSYCHIATRIC: Appropriate mood and affect; insight and judgment normal. Assessment and Plan Assessment and Plan pulm improving with occasional wheeze DVT/PE ON COUMADIN plan ContIinue O2 therapy INCREASE ACTIVITY bronchodilators taper steroids as tolerated Mary Hernandez MD Oct 31, 2016 06:41
[2016-10-31 07:01] LABS: AUTOMATED NEUTROPHIL # 6.5 TH/MM3 (1.8-7.7); BASOPHIL % 0.1 % (0.0-2.0); EOSINOPHIL % 0.1 % (0.0-4.0); HEMATOCRIT 30.1 % (39.0-51.0); LYMPHOCYTE # 0.7 TH/MM3 (1.0-4.8); MEAN CELL VOLUME 75.3 FL (80.0-100.0); MEAN CORPUSCULAR HEMOGLOBIN 23.7 PG (27.0-34.0); MEAN CORPUSCULAR HGB CONC 31.5 % (32.0-36.0); MONO % 6.6 % (0.0-8.0); NEUT % 84.2 % (16.0-70.0); PLATELET COUNT 324 TH/MM3 (150-450); RED CELL DISTRIBUTION WIDTH 22.8 % (11.6-17.2); WHITE BLOOD COUNT 7.8 TH/MM3 (4.0-11.0)
[2016-10-31 07:04] LABS: INTERNATIONAL NORMALIZED RATIO 1.8 RATIO; PROTHROMBIN TIME - PATIENT 20.4 SEC (9.8-11.6)
[2016-10-31 07:15] LABS: HEMO FLAGS AUTO DIFF
[2016-10-31 07:30] LABS: ALKALINE PHOSPHATASE 111 U/L (45-117); ALT (GPT) 116 U/L (12-78); ANION GAP 7 MEQ/L (5-15); AST (GOT) 25 U/L (15-37); BICARBONATE 31.4 MEQ/L (21.0-32.0); BLOOD UREA NITROGEN 17 MG/DL (7-18); CHLORIDE 98 MEQ/L (98-107); GLOMERULAR FILTRATION RATE 100 ML/MIN (>89); POTASSIUM 3.6 MEQ/L (3.5-5.1); SODIUM (NA) 136 MEQ/L (136-145); TOTAL BILIRUBIN ADULT 0.2 MG/DL (0.2-1.0)
[2016-10-31 07:53] LABS: BANDS 1 % (0-6); CORRECTED NUCLEATED RBC 4 /100 WBC (0-0); METAMYELOCYTES 2 % (0-1); MYELOCYTES 5 % (0-0); NEUTROPHIL # MANUAL DIFF 6.9 TH/MM3 (1.8-7.7); PLATELET ESTIMATE SMEAR NORMAL (NORMAL); PLATELET MORPHOLOGY NORMAL (NORMAL); POLYS (SEG NEUTROPHILS) 80 % (16-70); SCAN/DIFF FINAL DIFF MANUAL; WBC DIFF SAMPLE 100
--- NOTE | 2016-10-31 08:11 | HHI.PR ---
Subjective History of Present Illness Patient have sever wheezing not able to walk because of SOB/ Wheezing.. Right hip pain better. INR 1.7 on coumadin 2 mg PO Daily.. monitor INR... high LFTs monitoring Review of Systems Constitutional Constitutional: Fatigue, Weakness Pulmonary Respiratory: Shortness of Breath, Wheezing Musculoskeletal MS Remarks Right Hip pain/ swelling. Integumentary Skin Remarks right hip bruise. Vitals/Results Intake & Output 10/30/16 10/30/16 10/31/16 15:00 23:00 07:00 Intake Total 1250 ml 720 ml 240 ml Output Total 1175 ml Balance 1250 ml 720 ml -935 ml Intake Oral 1250 ml 720 ml 240 ml Output Urine Total 1175 ml # Voids 7 2 # Bowel Movements 1 0 0 Vital Signs Vital Signs Date Time Temp Pulse Resp B/P Pulse Ox O2 Delivery O2 Flow Rate FiO2 10/31/16 03:26 96 Nasal Cannula 2.00 10/30/16 20:25 96.2 118 18 140/95 96 10/30/16 19:35 97 Nasal Cannula 2.00 10/30/16 18:49 Nasal Cannula 2.00 Humidified 10/30/16 18:23 17 10/30/16 15:40 96.9 115 18 137/89 99 10/30/16 12:00 96.5 92 18 121/89 95 10/30/16 09:20 17 10/30/16 08:34 98 Nasal Cannula 2.00 CBC/BMP: 10/31/16 0635 10/31/16 0635 Lab Results Laboratory Tests Test 10/30/16 10/31/16 12:35 06:35 Prothrombin Time 22.5 SEC 20.4 SEC Prothromb Time International 2.0 RATIO 1.8 RATIO Ratio White Blood Count 7.8 TH/MM3 Red Blood Count 4.00 MIL/MM3 Hemoglobin 9.5 GM/DL Hematocrit 30.1 % Mean Corpuscular Volume 75.3 FL Mean Corpuscular Hemoglobin 23.7 PG Mean Corpuscular Hemoglobin 31.5 % Concent Red Cell Distribution Width 22.8 % Platelet Count 324 TH/MM3 Mean Platelet Volume 6.3 FL Neutrophils (%) (Auto) 84.2 % Lymphocytes (%) (Auto) 9.0 % Monocytes (%) (Auto) 6.6 % Eosinophils (%) (Auto) 0.1 % Basophils (%) (Auto) 0.1 % Neutrophils # (Auto) 6.5 TH/MM3 Lymphocytes # (Auto) 0.7 TH/MM3 Monocytes # (Auto) 0.5 TH/MM3 Eosinophils # (Auto) 0.0 TH/MM3 Basophils # (Auto) 0.0 TH/MM3 CBC Comment AUTO DIFF Differential Total Cells 100 Counted Neutrophils % (Manual) 80 % Band Neutrophils % 1 % Lymphocytes % 7 % Monocytes % 5 % Neutrophils # (Manual) 6.9 TH/MM3 Metamyelocytes 2 % Myelocytes 5 % Nucleated Red Blood Cells 4 /100 WBC Differential Comment FINAL DIFF MANUAL Platelet Estimate NORMAL Platelet Morphology Comment NORMAL Sodium Level 136 MEQ/L Potassium Level 3.6 MEQ/L Chloride Level 98 MEQ/L Carbon Dioxide Level 31.4 MEQ/L Anion Gap 7 MEQ/L Blood Urea Nitrogen 17 MG/DL Creatinine 0.81 MG/DL Estimat Glomerular Filtration 100 ML/MIN Rate Random Glucose 192 MG/DL Calcium Level 9.0 MG/DL Total Bilirubin 0.2 MG/DL Aspartate Amino Transf 25 U/L (AST/SGOT) Alanine Aminotransferase 116 U/L (ALT/SGPT) Alkaline Phosphatase 111 U/L Total Protein 6.2 GM/DL Albumin 3.5 GM/DL Physical Exam General General Appearance: Well Developed, No Acute Distress, Comfortable Eyes Eye Exam: Pupils Equal, Pupils Reactive Throat Throat Exam: Oral Mucosa [place] & Moist Neck Neck Exam: Neck Supple, Trachea Midline Pulmonary Resp Exam: Diminished Breath Sounds Resp Remarks Sever Bilateral Wheezing. Cardiology CV Exam: Regular, Normal Sinus Rhythm Gastrointestinal/Abdomen GI Exam: Soft, Non-Tender, Bowel Sounds Present, Non-Distended Musculoskeletal MS Exam: Normal Tone Integumentary Skin Exam: Warm, Dry Extremeties Extremities Exam: No Edema Neurologic Neuro Exam: Alert, Awake, Oriented, Speech Clear, Moving All Extremities, Microfilming Document Preparer Equal, No Focal Deficits Psychiatric Psych Exam: Appropriate Responses VTE Prophylaxis VTE Prophylaxis Meds: Coumadin PUD Prophylasis PUD Prophylaxis: Protonix Assessment/Plan Assessment/Plan ASSESSMENT AND PLAN: 1. Asthma exacerbation-continue oxygen, PO Prednisone, appreciate pulm input, Xopenex and Atrovent Apply humidifier to oxygen 2. History for right hip infection with fungus. The patient is on Diflucan + Micafungin.. He has right hip swelling and pain. Right hip ultrasound noted orthopedic input noted s/p needle drainage of hematoma right hip, per orthopedic not getting right hip hardware removed. S/P MRI Right hip shows 12 cm hematoma/seroma. s/p needle drainage... S/P CT Pelvis show no more hematoma collection 3. Septic right hip. The patient is on Diflucan + Micafungin... Infectious disease input noted.. Will monitor. 4. History of chronic obstructive pulmonary disease. Continue home medications. 5. History of depression. Continue home medications. 6. History of anxiety. Continue with Ativan 0.5 milligrams twice a day. 7. Right hip pain. The patient on tramadol and [place] and also Dilaudid 0.5 milligrams p.o. q. 6 hours PRN pain. 8. History of hyperlipidemia. Continue on Lipitor 20 milligrams p.o. daily. 9. History of pulmonary embolism and DVT right leg. INR 1.7 on coumadin 2 mg PO Daily . Will monitor INR daily. 10. High blood sugar continue with ISS + Levemir 20 units subcut. HS. monitoring blood glucose 11. Leg edema on Lasix 40 mg IV BID DVT prophylaxis. . INR 1.7 . ..restarted coumadin 2 mg PO Daily. GI prophylaxis. Protonix 40 milligrams p.o. daily/ Carafate 1 gram p.o. three times a day. DC plan in progress, IV Abx being arranged for OP . Discussed Condition with: Patient Myron Woodward MD Oct 31, 2016 08:11
[2016-10-31] MEDS: DILTIAZEM-CD 180 MG CAP ER PO SCH (08:43)
[2016-10-31] MEDS: predniSONE 10 MG TAB PO SCH ×2 (08:43→21:02)
[2016-10-31] MEDS: PANTOPRAZOLE SOD 40 MG DELAYED RELEASE TAB PO SCH (08:43)
[2016-10-31] MEDS: FLUCONAZOLE 200 MG TAB PO SCH (08:43)
[2016-10-31] MEDS: LORazepam 0.5 MG TAB PO SCH ×2 (08:43→21:02)
[2016-10-31] MEDS: SUCRALFATE 1 GM TAB PO SCH ×3 (08:44→17:25)
[2016-10-31] MEDS: POTASSIUM CHLORIDE 10 MEQ CONTROLLED RELEASE TAB PO SCH ×2 (08:44→21:02)
[2016-10-31] MEDS: FUROSEMIDE 40 MG/4 ML VIAL IV PUSH SCH ×2 (08:44→17:25)
[2016-10-31] MEDS: BUDESONIDE-FORMOTEROL 160/4.5 MCG INHALER INH SCH ×2 (08:46→21:02)
[2016-10-31 10:05] LABS: INTERNATIONAL NORMALIZED RATIO 1.8 RATIO
[2016-10-31] MEDS: traMADol HCL 50 MG TAB PO PRN (11:13)
[2016-10-31] MEDS: ONDANSETRON HCL 4 MG/2 ML VIAL IV PUSH PRN (13:10)
[2016-10-31] MEDS: ACETAMINOPHEN/HYDROcodone 325 MG/7.5 MG TAB PO PRN (15:52)
[2016-10-31] MEDS: WARFARIN SOD 2 MG TAB PO SCH (15:52)
[2016-10-31] MEDS: MICAFUNGIN INJ 150 MG in SODIUM CHLORIDE 0.9% INJ 100 ML IV SCH (17:25)
[2016-10-31] MEDS: ATORVASTATIN 20 MG TAB PO SCH (21:02)
[2016-10-31] MEDS: INSULIN DETEMIR 100 UNITS/ML VIAL SQ SCH (21:02)
[2016-10-31] MEDS: MONTELUKAST SODIUM 10 MG TAB PO SCH (21:02)
[2016-11-01] VITALS (10 sets, daily range): BP systolic 112–135; BP diastolic 82–95; PULSE 103–114; RESP 16–20; TEMP 95.7–97.5; O2SAT 95–99
[2016-11-01] MEDS: RESP: ALBUTEROL 2.5 MG/IPRATROPIUM 0.5 MG NEB (PRN) NEB ×6 (00:04→20:34)
[2016-11-01] MEDS: ACETAMINOPHEN/HYDROcodone 325 MG/7.5 MG TAB PO PRN ×3 (00:09→23:21)
[2016-11-01 05:18] LABS: AUTOMATED NEUTROPHIL # 5.7 TH/MM3 (1.8-7.7); BASOPHIL % 0.3 % (0.0-2.0); EOSINOPHIL % 0.6 % (0.0-4.0); HEMATOCRIT 30.3 % (39.0-51.0); LYMPH % 17.5 % (9.0-44.0); LYMPHOCYTE # 1.3 TH/MM3 (1.0-4.8); MEAN CELL VOLUME 75.1 FL (80.0-100.0); MEAN CORPUSCULAR HEMOGLOBIN 23.8 PG (27.0-34.0); MEAN CORPUSCULAR HGB CONC 31.6 % (32.0-36.0); MONO % 7.6 % (0.0-8.0); PLATELET COUNT 329 TH/MM3 (150-450); RED BLOOD COUNT 4.03 MIL/MM3 (4.50-5.90); RED CELL DISTRIBUTION WIDTH 23.1 % (11.6-17.2); WHITE BLOOD COUNT 7.7 TH/MM3 (4.0-11.0)
[2016-11-01 05:22] LABS: INTERNATIONAL NORMALIZED RATIO 1.6 RATIO; PROTHROMBIN TIME - PATIENT 18.3 SEC (9.8-11.6)
[2016-11-01 05:50] LABS: ANION GAP 10 MEQ/L (5-15); AST (GOT) 39 U/L (15-37); BICARBONATE 30.2 MEQ/L (21.0-32.0); BLOOD UREA NITROGEN 16 MG/DL (7-18); CHLORIDE 98 MEQ/L (98-107); GLOMERULAR FILTRATION RATE 99 ML/MIN (>89); POTASSIUM 3.5 MEQ/L (3.5-5.1); SODIUM (NA) 138 MEQ/L (136-145)
[2016-11-01 05:53] LABS: ALKALINE PHOSPHATASE 106 U/L (45-117); ALT (GPT) 113 U/L (12-78); TOTAL BILIRUBIN ADULT 0.2 MG/DL (0.2-1.0)
[2016-11-01 06:04] LABS: HEMO FLAGS AUTO DIFF
[2016-11-01] MEDS: INSULIN ASPART SUPPLEMENTAL SCALE SQ SCH ×4 (06:25→20:48)
[2016-11-01] MEDS: oxyCODONE HCL 20 MG CONTROLLED RELEASE TAB PO SCH ×2 (06:26→17:20)
--- NOTE | 2016-11-01 07:17 | HHI.PR ---
Subjective History of Present Illness Patient have sever wheezing not able to walk because of SOB/ Wheezing.. Right hip pain better. INR 1.6 on coumadin 2 mg PO Daily.... monitor INR. high LFTs monitoring Review of Systems Constitutional Constitutional: Fatigue, Weakness Pulmonary Respiratory: Shortness of Breath, Wheezing Musculoskeletal MS Remarks Right Hip pain/ swelling. Integumentary Skin Remarks right hip bruise. Vitals/Results Intake & Output 10/31/16 10/31/16 11/01/16 15:00 23:00 07:00 Intake Total 1220 ml 960 ml Output Total 3000 ml Balance 1220 ml -2040 ml Intake Oral 1220 ml 960 ml Output Urine Total 3000 ml # Voids 5 # Bowel Movements 2 0 Vital Signs Vital Signs Date Time Temp Pulse Resp B/P Pulse Ox O2 Delivery O2 Flow Rate FiO2 11/01/16 03:40 97 Nasal Cannula 2.00 11/01/16 00:15 95.7 103 18 129/93 97 11/01/16 00:08 98 Nasal Cannula 2.00 11/01/16 00:07 98 Nasal Cannula 2.00 10/31/16 22:13 96 Nasal Cannula 2.00 10/31/16 20:15 96.6 107 18 125/89 95 10/31/16 20:00 95 Nasal Cannula 2.00 10/31/16 16:30 96.8 108 18 123/81 97 10/31/16 12:00 96.5 106 18 116/89 98 10/31/16 08:43 97 Nasal Cannula 2.00 10/31/16 08:40 Nasal Cannula 2.00 Humidified 10/31/16 08:00 96.7 99 18 132/90 96 CBC/BMP: 11/01/16 0457 11/01/16 0457 Lab Results Laboratory Tests Test 10/31/16 11/01/16 09:45 04:57 Prothrombin Time 20.0 SEC 18.3 SEC Prothromb Time International 1.8 RATIO 1.6 RATIO Ratio White Blood Count 7.7 TH/MM3 Red Blood Count 4.03 MIL/MM3 Hemoglobin 9.6 GM/DL Hematocrit 30.3 % Mean Corpuscular Volume 75.1 FL Mean Corpuscular Hemoglobin 23.8 PG Mean Corpuscular Hemoglobin 31.6 % Concent Red Cell Distribution Width 23.1 % Platelet Count 329 TH/MM3 Mean Platelet Volume 6.4 FL Neutrophils (%) (Auto) 74.0 % Lymphocytes (%) (Auto) 17.5 % Monocytes (%) (Auto) 7.6 % Eosinophils (%) (Auto) 0.6 % Basophils (%) (Auto) 0.3 % Neutrophils # (Auto) 5.7 TH/MM3 Lymphocytes # (Auto) 1.3 TH/MM3 Monocytes # (Auto) 0.6 TH/MM3 Eosinophils # (Auto) 0.0 TH/MM3 Basophils # (Auto) 0.0 TH/MM3 CBC Comment AUTO DIFF Sodium Level 138 MEQ/L Potassium Level 3.5 MEQ/L Chloride Level 98 MEQ/L Carbon Dioxide Level 30.2 MEQ/L Anion Gap 10 MEQ/L Blood Urea Nitrogen 16 MG/DL Creatinine 0.82 MG/DL Estimat Glomerular Filtration 99 ML/MIN Rate Random Glucose 162 MG/DL Calcium Level 9.2 MG/DL Total Bilirubin 0.2 MG/DL Aspartate Amino Transf 39 U/L (AST/SGOT) Alanine Aminotransferase 113 U/L (ALT/SGPT) Alkaline Phosphatase 106 U/L Total Protein 6.0 GM/DL Albumin 3.6 GM/DL Physical Exam General General Appearance: Well Developed, No Acute Distress, Comfortable Eyes Eye Exam: Pupils Equal, Pupils Reactive Throat Throat Exam: Oral Mucosa [place] & Moist Neck Neck Exam: Neck Supple, Trachea Midline Pulmonary Resp Exam: Diminished Breath Sounds Resp Remarks Sever Bilateral Wheezing. Cardiology CV Exam: Regular, Normal Sinus Rhythm Gastrointestinal/Abdomen GI Exam: Soft, Non-Tender, Bowel Sounds Present, Non-Distended Musculoskeletal MS Exam: Normal Tone Integumentary Skin Exam: Warm, Dry Extremeties Extremities Exam: No Edema Neurologic Neuro Exam: Alert, Awake, Oriented, Speech Clear, Moving All Extremities, Cutting Machine Tender Equal, No Focal Deficits Psychiatric Psych Exam: Appropriate Responses VTE Prophylaxis VTE Prophylaxis Meds: Coumadin PUD Prophylasis PUD Prophylaxis: Protonix Assessment/Plan Assessment/Plan ASSESSMENT AND PLAN: 1. Asthma exacerbation-continue oxygen, PO Prednisone, appreciate pulm input, Xopenex and Atrovent Apply humidifier to oxygen 2. History for right hip infection with fungus. The patient is on Diflucan + Micafungin.. He has right hip swelling and pain. Right hip ultrasound noted orthopedic input noted s/p needle drainage of hematoma right hip, per orthopedic not getting right hip hardware removed. S/P MRI Right hip shows 12 cm hematoma/seroma. s/p needle drainage... S/P CT Pelvis show no more hematoma collection 3. Septic right hip. The patient is on Diflucan + Micafungin... Infectious disease input noted.. Will monitor. 4. History of chronic obstructive pulmonary disease. Continue home medications. 5. History of depression. Continue home medications. 6. History of anxiety. Continue with Ativan 0.5 milligrams twice a day. 7. Right hip pain. The patient on tramadol and [place] and also Dilaudid 0.5 milligrams p.o. q. 6 hours PRN pain. 8. History of hyperlipidemia. Continue on Lipitor 20 milligrams p.o. daily. 9. History of pulmonary embolism and DVT right leg. INR 1.6 on coumadin 2 mg PO Daily. Will monitor INR daily. 10. High blood sugar continue with ISS + Levemir 20 units subcut. HS. monitoring blood glucose 11. Leg edema on Lasix 40 mg IV BID DVT prophylaxis. . on coumadin. GI prophylaxis. Protonix 40 milligrams p.o. daily/ Carafate 1 gram p.o. three times a day. DC plan in progress, IV Abx being arranged for OP . Discussed Condition with: Patient Myron Woodward MD Nov 01, 2016 07:17
[2016-11-01 07:28] LABS: CORRECTED NUCLEATED RBC 2 /100 WBC (0-0); EOSINOPHILS 1 % (0-4); METAMYELOCYTES 3 % (0-1); MYELOCYTES 3 % (0-0); NEUTROPHIL # MANUAL DIFF 6.2 TH/MM3 (1.8-7.7); PLATELET ESTIMATE SMEAR NORMAL (NORMAL); PLATELET MORPHOLOGY NORMAL (NORMAL); POLYS (SEG NEUTROPHILS) 74 % (16-70); PROMYELOCYTES 1 % (0-0); SCAN/DIFF FINAL DIFF MANUAL; WBC DIFF SAMPLE 100
[2016-11-01 07:29] LABS: OVALOCYTES 1+ (NORMAL)
[2016-11-01] MEDS: BUDESONIDE-FORMOTEROL 160/4.5 MCG INHALER INH SCH ×2 (09:00→20:49)
[2016-11-01] MEDS: POTASSIUM CHLORIDE 10 MEQ CONTROLLED RELEASE TAB PO SCH ×2 (09:15→20:49)
[2016-11-01] MEDS: FLUCONAZOLE 200 MG TAB PO SCH (09:15)
[2016-11-01] MEDS: DILTIAZEM-CD 180 MG CAP ER PO SCH (09:16)
[2016-11-01] MEDS: PANTOPRAZOLE SOD 40 MG DELAYED RELEASE TAB PO SCH (09:16)
[2016-11-01] MEDS: predniSONE 10 MG TAB PO SCH ×2 (09:16→20:49)
[2016-11-01] MEDS: SUCRALFATE 1 GM TAB PO SCH ×3 (09:16→16:42)
[2016-11-01] MEDS: LORazepam 0.5 MG TAB PO SCH ×2 (09:16→20:49)
[2016-11-01] MEDS: FUROSEMIDE 40 MG/4 ML VIAL IV PUSH SCH ×2 (09:17→16:42)
[2016-11-01 12:00] LABS: INTERNATIONAL NORMALIZED RATIO 1.7 RATIO
[2016-11-01] MEDS: MICAFUNGIN INJ 150 MG in SODIUM CHLORIDE 0.9% INJ 100 ML IV SCH (16:41)
[2016-11-01] MEDS: PROMETHAZINE/CODEINE 6.25 MG/10 MG/5 ML CUP PO PRN (16:43)
[2016-11-01] MEDS: WARFARIN SOD 2 MG TAB PO SCH (16:44)
[2016-11-01] MEDS: INSULIN DETEMIR 100 UNITS/ML VIAL SQ SCH (20:48)
[2016-11-01] MEDS: ATORVASTATIN 20 MG TAB PO SCH (20:49)
[2016-11-01] MEDS: MONTELUKAST SODIUM 10 MG TAB PO SCH (20:49)
[2016-11-02] VITALS (8 sets, daily range): BP systolic 110–151; BP diastolic 79–89; PULSE 97–110; RESP 16–18; TEMP 95.8–97.9; O2SAT 95–98
[2016-11-02] MEDS: RESP: ALBUTEROL 2.5 MG/IPRATROPIUM 0.5 MG NEB (PRN) NEB ×3 (00:14→10:01)
[2016-11-02 06:06] LABS: ALT (GPT) 115 U/L (12-78); ANION GAP 11 MEQ/L (5-15); AST (GOT) 34 U/L (15-37); BLOOD UREA NITROGEN 17 MG/DL (7-18); CHLORIDE 99 MEQ/L (98-107); GLOMERULAR FILTRATION RATE 89 ML/MIN (>89); POTASSIUM 3.2 MEQ/L (3.5-5.1); SODIUM (NA) 138 MEQ/L (136-145)
[2016-11-02 06:08] LABS: ALKALINE PHOSPHATASE 105 U/L (45-117); TOTAL BILIRUBIN ADULT 0.2 MG/DL (0.2-1.0)
[2016-11-02 06:13] LABS: BASOPHIL % 0.4 % (0.0-2.0); EOSINOPHIL % 0.4 % (0.0-4.0); HEMATOCRIT 29.6 % (39.0-51.0); LYMPHOCYTE # 1.1 TH/MM3 (1.0-4.8); MEAN CELL VOLUME 74.8 FL (80.0-100.0); MEAN CORPUSCULAR HEMOGLOBIN 24.1 PG (27.0-34.0); MEAN CORPUSCULAR HGB CONC 32.2 % (32.0-36.0); MONO % 7.7 % (0.0-8.0); NEUT % 77.5 % (16.0-70.0); PLATELET COUNT 319 TH/MM3 (150-450); RED BLOOD COUNT 3.96 MIL/MM3 (4.50-5.90); RED CELL DISTRIBUTION WIDTH 22.8 % (11.6-17.2); WHITE BLOOD COUNT 7.7 TH/MM3 (4.0-11.0)
[2016-11-02 06:17] LABS: HEMO FLAGS AUTO DIFF
[2016-11-02] MEDS: oxyCODONE HCL 20 MG CONTROLLED RELEASE TAB PO SCH ×2 (06:31→17:02)
[2016-11-02] MEDS: INSULIN ASPART SUPPLEMENTAL SCALE SQ SCH ×4 (06:31→21:00)
--- NOTE | 2016-11-02 07:05 | HHI.PR ---
Subjective History of Present Illness Patient have sever wheezing not able to walk because of SOB/ Wheezing.. Right hip pain better. INR 1.8 on coumadin 2 mg PO Daily.... monitor INR. high LFTs monitoring Low Potassium will replace and monitor. Review of Systems Constitutional Constitutional: Fatigue, Weakness Pulmonary Respiratory: Shortness of Breath, Wheezing Musculoskeletal MS Remarks Right Hip pain/ swelling. Integumentary Skin Remarks right hip bruise. Vitals/Results Intake & Output 11/01/16 11/01/16 11/02/16 15:00 23:00 07:00 Intake Total 2160 ml 720 ml 480 ml Output Total 1100 ml 400 ml Balance 1060 ml 720 ml 80 ml Intake Oral 2160 ml 720 ml 480 ml Output Urine Total 1100 ml 400 ml # Voids 2 # Bowel Movements 1 1 Vital Signs Vital Signs Date Time Temp Pulse Resp B/P Pulse Ox O2 Delivery O2 Flow Rate FiO2 11/02/16 00:14 97 Nasal Cannula 2.00 11/02/16 00:00 97.3 109 16 121/88 96 11/01/16 20:00 97 Nasal Cannula 2.00 11/01/16 20:00 97.5 106 16 112/82 97 11/01/16 16:38 99 Nasal Cannula 2.00 11/01/16 16:00 96.7 110 20 112/90 95 11/01/16 12:00 96.4 114 20 119/91 99 11/01/16 08:15 98 Nasal Cannula 2.00 11/01/16 08:00 96.6 103 20 135/95 95 CBC/BMP: 11/02/16 0430 11/02/16 0430 Lab Results Laboratory Tests Test 11/01/16 11/02/16 11:30 04:30 Prothrombin Time 19.0 SEC Prothromb Time International 1.7 RATIO Ratio White Blood Count 7.7 TH/MM3 Red Blood Count 3.96 MIL/MM3 Hemoglobin 9.5 GM/DL Hematocrit 29.6 % Mean Corpuscular Volume 74.8 FL Mean Corpuscular Hemoglobin 24.1 PG Mean Corpuscular Hemoglobin 32.2 % Concent Red Cell Distribution Width 22.8 % Platelet Count 319 TH/MM3 Mean Platelet Volume 6.7 FL Neutrophils (%) (Auto) 77.5 % Lymphocytes (%) (Auto) 14.0 % Monocytes (%) (Auto) 7.7 % Eosinophils (%) (Auto) 0.4 % Basophils (%) (Auto) 0.4 % Neutrophils # (Auto) 6.0 TH/MM3 Lymphocytes # (Auto) 1.1 TH/MM3 Monocytes # (Auto) 0.6 TH/MM3 Eosinophils # (Auto) 0.0 TH/MM3 Basophils # (Auto) 0.0 TH/MM3 CBC Comment AUTO DIFF Sodium Level 138 MEQ/L Potassium Level 3.2 MEQ/L Chloride Level 99 MEQ/L Carbon Dioxide Level 28.0 MEQ/L Anion Gap 11 MEQ/L Blood Urea Nitrogen 17 MG/DL Creatinine 0.90 MG/DL Estimat Glomerular Filtration 89 ML/MIN Rate Random Glucose 171 MG/DL Calcium Level 8.9 MG/DL Total Bilirubin 0.2 MG/DL Aspartate Amino Transf 34 U/L (AST/SGOT) Alanine Aminotransferase 115 U/L (ALT/SGPT) Alkaline Phosphatase 105 U/L Total Protein 5.9 GM/DL Albumin 3.4 GM/DL Physical Exam General General Appearance: Well Developed, No Acute Distress, Comfortable Eyes Eye Exam: Pupils Equal, Pupils Reactive Throat Throat Exam: Oral Mucosa [place] & Moist Neck Neck Exam: Neck Supple, Trachea Midline Pulmonary Resp Exam: Diminished Breath Sounds Resp Remarks Sever Bilateral Wheezing. Cardiology CV Exam: Regular, Normal Sinus Rhythm Gastrointestinal/Abdomen GI Exam: Soft, Non-Tender, Bowel Sounds Present, Non-Distended Musculoskeletal MS Exam: Normal Tone Integumentary Skin Exam: Warm, Dry Extremeties Extremities Exam: No Edema Neurologic Neuro Exam: Alert, Awake, Oriented, Speech Clear, Moving All Extremities, [place] Equal, No Focal Deficits Psychiatric Psych Exam: Appropriate Responses VTE Prophylaxis VTE Prophylaxis Meds: Coumadin PUD Prophylasis PUD Prophylaxis: Protonix Assessment/Plan Assessment/Plan ASSESSMENT AND PLAN: 1. Asthma exacerbation-continue oxygen, PO Prednisone, appreciate pulm input, Xopenex and Atrovent Apply humidifier to oxygen 2. History for right hip infection with fungus. The patient is on Diflucan + Micafungin.. He has right hip swelling and pain. Right hip ultrasound noted orthopedic input noted s/p needle drainage of hematoma right hip, per orthopedic not getting right hip hardware removed. S/P MRI Right hip shows 12 cm hematoma/seroma. s/p needle drainage... S/P CT Pelvis show no more hematoma collection 3. Septic right hip. The patient is on Diflucan + Micafungin... Infectious disease input noted.. Will monitor. 4. History of chronic obstructive pulmonary disease. Continue home medications. 5. History of depression. Continue home medications. 6. History of anxiety. Continue with Ativan 0.5 milligrams twice a day. 7. Right hip pain. The patient on tramadol and [place] and also Dilaudid 0.5 milligrams p.o. q. 6 hours PRN pain. 8. History of hyperlipidemia. Continue on Lipitor 20 milligrams p.o. daily. 9. History of pulmonary embolism and DVT right leg. INR 1.8 on coumadin 2 mg PO Daily. Will monitor INR daily. 10. High blood sugar continue with ISS + Levemir 20 units subcut. HS. monitoring blood glucose 11. Leg edema on Lasix 40 mg IV BID DVT prophylaxis. . on coumadin. GI prophylaxis. Protonix 40 milligrams p.o. daily/ Carafate 1 gram p.o. three times a day. DC plan in progress, IV Abx being arranged for OP . Discussed Condition with: Patient Myron Woodward MD Nov 02, 2016 07:05
[2016-11-02 07:26] LABS: INTERNATIONAL NORMALIZED RATIO 1.7 RATIO; PROTHROMBIN TIME - PATIENT 19.7 SEC (9.8-11.6)
[2016-11-02] MEDS: LORazepam 0.5 MG TAB PO SCH ×2 (09:11→21:19)
[2016-11-02] MEDS: PANTOPRAZOLE SOD 40 MG DELAYED RELEASE TAB PO SCH (09:11)
[2016-11-02] MEDS: predniSONE 10 MG TAB PO SCH ×2 (09:11→22:06)
[2016-11-02] MEDS: FUROSEMIDE 40 MG/4 ML VIAL IV PUSH SCH ×2 (09:11→17:02)
[2016-11-02] MEDS: SUCRALFATE 1 GM TAB PO SCH ×3 (09:11→17:02)
[2016-11-02] MEDS: POTASSIUM CHLORIDE 10 MEQ CONTROLLED RELEASE TAB PO SCH ×2 (09:11→21:19)
[2016-11-02] MEDS: DILTIAZEM-CD 180 MG CAP ER PO SCH (09:11)
[2016-11-02] MEDS: FLUCONAZOLE 200 MG TAB PO SCH (09:12)
[2016-11-02] MEDS: BUDESONIDE-FORMOTEROL 160/4.5 MCG INHALER INH SCH ×2 (09:13→21:19)
[2016-11-02] MEDS: PROMETHAZINE/CODEINE 6.25 MG/10 MG/5 ML CUP PO PRN ×2 (10:43→23:49)
[2016-11-02] MEDS: RESP: ALBUTEROL 2.5 MG/IPRATROPIUM 0.5 MG NEB (SCH) NEB ×5 (11:00→23:54)
[2016-11-02 11:24] LABS: BANDS 6 % (0-6); CORRECTED NUCLEATED RBC 1 /100 WBC (0-0); METAMYELOCYTES 1 % (0-1); MYELOCYTES 1 % (0-0); NEUTROPHIL # MANUAL DIFF 6.2 TH/MM3 (1.8-7.7); POLYS (SEG NEUTROPHILS) 72 % (16-70); WBC DIFF SAMPLE 100
[2016-11-02 11:25] LABS: OVALOCYTES 1+ (NORMAL); PLATELET ESTIMATE SMEAR NORMAL (NORMAL); PLATELET MORPHOLOGY NORMAL (NORMAL); SCAN/DIFF FINAL DIFF MANUAL
[2016-11-02 12:14] LABS: INTERNATIONAL NORMALIZED RATIO 1.8 RATIO; PROTHROMBIN TIME - PATIENT 20.6 SEC (9.8-11.6)
[2016-11-02] MEDS: WARFARIN SOD 2 MG TAB PO SCH (17:02)
[2016-11-02] MEDS: MICAFUNGIN INJ 150 MG in SODIUM CHLORIDE 0.9% INJ 100 ML IV SCH (17:03)
--- NOTE | 2016-11-02 18:45 | HHI.PR ---
Subjective Remarks no sob no fever or chill no cough or sputum OCCASIONAL WHEEZE Objective Vital Signs Date Time Temp Pulse Resp B/P Pulse Ox O2 Delivery O2 Flow Rate FiO2 11/02/16 16:00 97.7 110 18 110/79 97 11/02/16 12:00 95.8 110 18 127/87 98 11/02/16 10:00 98 Nasal Cannula 2.00 11/02/16 08:00 95.8 97 18 151/89 95 11/02/16 00:14 97 Nasal Cannula 2.00 11/02/16 00:00 97.3 109 16 121/88 96 11/01/16 20:00 97 Nasal Cannula 2.00 11/01/16 20:00 97.5 106 16 112/82 97 I/O 11/01/16 11/01/16 11/01/16 11/02/16 11/02/16 11/02/16 07:00 15:00 23:00 07:00 15:00 23:00 Intake Total 240 ml 2160 ml 720 ml 480 ml 800 ml Output Total 800 ml 1100 ml 400 ml 1400 ml Balance -560 ml 1060 ml 720 ml 80 ml -600 ml Intake Oral 240 ml 2160 ml 720 ml 480 ml 800 ml Output Urine Total 800 ml 1100 ml 400 ml 1400 ml # Voids 2 # Bowel Movements 0 1 1 1 Result Diagram: 11/02/1642911/02/16429 Objective Remarks GENERAL: SKIN: Warm and dry. HEAD: Atraumatic. Normocephalic. EYES: Pupils equal and round. No scleral icterus. No injection or drainage. ENT: No nasal bleeding or discharge. Mucous membranes pink and moist. NECK: Trachea midline. No JVD. CARDIOVASCULAR: Regular rate and rhythm. RESPIRATORY: No accessory muscle use. Clear to auscultation. Breath sounds equal bilaterally. GASTROINTESTINAL: Abdomen soft, non-tender, nondistended. Hepatic and splenic margins not palpable. MUSCULOSKELETAL: Extremities without clubbing, cyanosis, or edema. No obvious deformities. NEUROLOGICAL: Awake and alert. No obvious cranial nerve deficits. Motor grossly within normal limits. Five out of 5 muscle strength in the arms and legs. Normal speech. PSYCHIATRIC: Appropriate mood and affect; insight and judgment normal. Assessment and Plan Assessment and Plan pulm improving with occasional wheeze DVT/PE ON COUMADIN plan ContIinue O2 therapy INCREASE ACTIVITY bronchodilators taper steroids as tolerated Mary,Mary Wadie MD Nov 02, 2016 18:45
[2016-11-02] MEDS: MONTELUKAST SODIUM 10 MG TAB PO SCH (21:18)
[2016-11-02] MEDS: ATORVASTATIN 20 MG TAB PO SCH (21:19)
[2016-11-02] MEDS: INSULIN DETEMIR 100 UNITS/ML VIAL SQ SCH (22:06)
[2016-11-02] MEDS: ACETAMINOPHEN/HYDROcodone 325 MG/7.5 MG TAB PO PRN (23:48)
[2016-11-03] VITALS: BP 140/98; PULSE 103; RESP 16; TEMP 97; O2SAT 97
[2016-11-03] MEDS: RESP: ALBUTEROL 2.5 MG/IPRATROPIUM 0.5 MG NEB (SCH) NEB ×8 (02:18→22:48)
[2016-11-03] MEDS: oxyCODONE HCL 20 MG CONTROLLED RELEASE TAB PO SCH ×2 (05:35→17:19)
[2016-11-03] MEDS: INSULIN ASPART SUPPLEMENTAL SCALE SQ SCH ×4 (05:49→20:44)
[2016-11-03 06:32] LABS: INTERNATIONAL NORMALIZED RATIO 2.3 RATIO; PROTHROMBIN TIME - PATIENT 26.7 SEC (9.8-11.6)
[2016-11-03 07:21] VITALS: O2SAT 96
[2016-11-03 08:00] VITALS: BP 138/91; PULSE 93; RESP 18; TEMP 96.5; O2SAT 95
[2016-11-03] MEDS: SUCRALFATE 1 GM TAB PO SCH ×3 (09:00→17:18)
[2016-11-03] MEDS: PANTOPRAZOLE SOD 40 MG DELAYED RELEASE TAB PO SCH (09:29)
[2016-11-03] MEDS: POTASSIUM CHLORIDE 10 MEQ CONTROLLED RELEASE TAB PO SCH ×2 (09:29→20:44)
[2016-11-03] MEDS: DILTIAZEM-CD 180 MG CAP ER PO SCH (09:29)
[2016-11-03] MEDS: FUROSEMIDE 40 MG/4 ML VIAL IV PUSH SCH ×2 (09:29→17:18)
[2016-11-03] MEDS: LORazepam 0.5 MG TAB PO SCH ×2 (09:30→20:44)
[2016-11-03] MEDS: FLUCONAZOLE 200 MG TAB PO SCH (09:30)
[2016-11-03] MEDS: predniSONE 10 MG TAB PO SCH ×2 (09:30→20:44)
[2016-11-03] MEDS: BUDESONIDE-FORMOTEROL 160/4.5 MCG INHALER INH SCH ×2 (09:31→20:45)
[2016-11-03 12:00] VITALS: BP 122/91; PULSE 114; RESP 18; TEMP 96.1; O2SAT 95
--- NOTE | 2016-11-03 13:29 | HHI.PR ---
Subjective History of Present Illness Patient have sever wheezing not able to walk because of SOB/ Wheezing.. Right hip pain better. monitor INR. high LFTs monitoring Review of Systems Constitutional Constitutional: Fatigue, Weakness Pulmonary Respiratory: Shortness of Breath, Wheezing Musculoskeletal MS Remarks Right Hip pain/ swelling. Integumentary Skin Remarks right hip bruise. Vitals/Results Intake & Output 11/02/16 11/02/16 11/03/16 15:00 23:00 07:00 Intake Total 2000 ml 480 ml Output Total 1400 ml 800 ml Balance 600 ml -320 ml Intake Oral 2000 ml 480 ml Output Urine Total 1400 ml 800 ml # Voids 3 # Bowel Movements 1 Vital Signs Vital Signs Date Time Temp Pulse Resp B/P Pulse Ox O2 Delivery O2 Flow Rate FiO2 11/03/16 08:00 96.5 93 18 138/91 95 11/03/16 07:21 96 Nasal Cannula 2.00 11/03/16 00:00 97.0 103 16 140/98 97 11/02/16 21:08 97 Nasal Cannula 2.50 11/02/16 20:10 97.9 109 16 115/88 97 11/02/16 20:00 97 Nasal Cannula 2.00 11/02/16 16:00 97.7 110 18 110/79 97 CBC/BMP: 11/02/16 0430 11/02/16 0430 Lab Results Laboratory Tests Test 11/03/16 05:55 Prothrombin Time 26.7 SEC Prothromb Time International 2.3 RATIO Ratio Physical Exam General General Appearance: Well Developed, No Acute Distress, Comfortable Eyes Eye Exam: Pupils Equal, Pupils Reactive, Sclera White, Extraocular Movement Intact Throat Throat Exam: Oral Mucosa [place] & Moist Neck Neck Exam: Neck Supple, Trachea Midline Pulmonary Resp Exam: Diminished Breath Sounds Resp Remarks Sever Bilateral Wheezing. 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 Asthma exacerbation-continue oxygen, PO Prednisone, appreciate pulm input, Xopenex and Atrovent Apply humidifier to oxygen 2. History for right hip infection with fungus. The patient is on Diflucan + Micafungin.. He has right hip swelling and pain. Right hip ultrasound noted orthopedic input noted s/p needle drainage of hematoma right hip, per orthopedic not getting right hip hardware removed. S/P MRI Right hip shows 12 cm hematoma/seroma. s/p needle drainage... S/P CT Pelvis show no more hematoma collection 3. Septic right hip. The patient is on Diflucan + Micafungin... Infectious disease input noted.. Will monitor. 4. History of chronic obstructive pulmonary disease. Continue home medications. 5. History of depression. Continue home medications. 6. History of anxiety. Continue with Ativan 0.5 milligrams twice a day. 7. Right hip pain. The patient on tramadol and [place] and also Dilaudid 0.5 milligrams p.o. q. 6 hours PRN pain. 8. History of hyperlipidemia. Continue on Lipitor 20 milligrams p.o. daily. 9. History of pulmonary embolism and DVT right leg. INR 2.9 on coumadin 2 mg PO Daily. Will monitor INR daily. 10. High blood sugar continue with ISS + Levemir 20 units subcut. HS. monitoring blood glucose 11. Leg edema on Lasix 40 mg IV BID DVT prophylaxis. . on coumadin. GI prophylaxis. Protonix 40 milligrams p.o. daily/ Carafate 1 gram p.o. three times a day. DC plan in progress, IV Abx being arranged for OP . Discussed Condition with: Patient Myron Woodward MD Nov 03, 2016 13:29
[2016-11-03 16:00] VITALS: BP 115/89; PULSE 105; RESP 18; TEMP 98; O2SAT 98
[2016-11-03] MEDS: PROMETHAZINE/CODEINE 6.25 MG/10 MG/5 ML CUP PO PRN (16:04)
[2016-11-03 16:35] LABS: INTERNATIONAL NORMALIZED RATIO 2.5 RATIO; PROTHROMBIN TIME - PATIENT 28.6 SEC (9.8-11.6)
[2016-11-03] MEDS: MICAFUNGIN INJ 150 MG in SODIUM CHLORIDE 0.9% INJ 100 ML IV SCH (17:18)
[2016-11-03] MEDS: WARFARIN SOD 2 MG TAB PO SCH (17:20)
--- NOTE | 2016-11-03 17:36 | HHI.PR ---
Subjective Remarks no sob no fever or chill no cough or sputum OCCASIONAL WHEEZE Objective Vital Signs Date Time Temp Pulse Resp B/P Pulse Ox O2 Delivery O2 Flow Rate FiO2 11/03/16 16:00 98.0 105 18 115/89 98 11/03/16 12:00 96.1 114 18 122/91 95 11/03/16 08:00 96.5 93 18 138/91 95 11/03/16 07:21 96 Nasal Cannula 2.00 11/03/16 00:00 97.0 103 16 140/98 97 11/02/16 21:08 97 Nasal Cannula 2.50 11/02/16 20:10 97.9 109 16 115/88 97 11/02/16 20:00 97 Nasal Cannula 2.00 I/O 11/02/16 11/02/16 11/02/16 11/03/16 11/03/16 11/03/16 07:00 15:00 23:00 07:00 15:00 23:00 Intake Total 480 ml 2000 ml 480 ml 800 ml Output Total 400 ml 1400 ml 800 ml 1375 ml Balance 80 ml 600 ml -320 ml -575 ml Intake Oral 480 ml 2000 ml 480 ml 800 ml Output Urine Total 400 ml 1400 ml 800 ml 1375 ml # Voids 3 # Bowel Movements 1 1 Result Diagram: 11/02/1642911/02/16 043 Objective Remarks GENERAL: SKIN: Warm and dry. HEAD: Atraumatic. Normocephalic. EYES: Pupils equal and round. No scleral icterus. No injection or drainage. ENT: No nasal bleeding or discharge. Mucous membranes pink and moist. NECK: Trachea midline. No JVD. CARDIOVASCULAR: Regular rate and rhythm. RESPIRATORY: No accessory muscle use. Clear to auscultation. Breath sounds equal bilaterally. GASTROINTESTINAL: Abdomen soft, non-tender, nondistended. Hepatic and splenic margins not palpable. MUSCULOSKELETAL: Extremities without clubbing, cyanosis, or edema. No obvious deformities. NEUROLOGICAL: Awake and alert. No obvious cranial nerve deficits. Motor grossly within normal limits. Five out of 5 muscle strength in the arms and legs. Normal speech. PSYCHIATRIC: Appropriate mood and affect; insight and judgment normal. Assessment and Plan Assessment and Plan pulm improving with occasional wheeze DVT/PE ON COUMADIN plan ContIinue O2 therapy INCREASE ACTIVITY bronchodilators taper steroids as tolerated Mary,Mary Wadie MD Nov 03, 2016 17:36
[2016-11-03] MEDS: ONDANSETRON HCL 4 MG/2 ML VIAL IV PUSH PRN (18:29)
[2016-11-03 20:00] VITALS: BP 140/92; PULSE 118; RESP 17; TEMP 98.2; O2SAT 96
[2016-11-03] MEDS: ATORVASTATIN 20 MG TAB PO SCH (20:44)
[2016-11-03] MEDS: MONTELUKAST SODIUM 10 MG TAB PO SCH (20:44)
[2016-11-03] MEDS: INSULIN DETEMIR 100 UNITS/ML VIAL SQ SCH (20:45)
[2016-11-04] VITALS (8 sets, daily range): BP systolic 114–140; BP diastolic 87–96; PULSE 84–115; RESP 16–18; TEMP 96.4–97.1; O2SAT 94–97
[2016-11-04] MEDS: PROMETHAZINE/CODEINE 6.25 MG/10 MG/5 ML CUP PO PRN ×2 (00:10→14:16)
[2016-11-04] MEDS: RESP: ALBUTEROL 2.5 MG/IPRATROPIUM 0.5 MG NEB (SCH) NEB ×8 (02:06→22:07)
[2016-11-04 05:40] LABS: INTERNATIONAL NORMALIZED RATIO 2.9 RATIO; PROTHROMBIN TIME - PATIENT 33.5 SEC (9.8-11.6)
[2016-11-04] MEDS: INSULIN ASPART SUPPLEMENTAL SCALE SQ SCH ×4 (06:12→21:00)
[2016-11-04] MEDS: oxyCODONE HCL 20 MG CONTROLLED RELEASE TAB PO SCH ×2 (06:13→17:00)
[2016-11-04] MEDS: predniSONE 10 MG TAB PO SCH ×2 (08:15→21:13)
[2016-11-04] MEDS: LORazepam 0.5 MG TAB PO SCH ×2 (08:15→21:13)
[2016-11-04] MEDS: DILTIAZEM-CD 180 MG CAP ER PO SCH (08:15)
[2016-11-04] MEDS: SUCRALFATE 1 GM TAB PO SCH ×3 (08:15→17:00)
[2016-11-04] MEDS: FLUCONAZOLE 200 MG TAB PO SCH (08:15)
[2016-11-04] MEDS: POTASSIUM CHLORIDE 10 MEQ CONTROLLED RELEASE TAB PO SCH ×2 (08:15→21:13)
[2016-11-04] MEDS: FUROSEMIDE 40 MG/4 ML VIAL IV PUSH SCH ×2 (08:15→17:00)
[2016-11-04] MEDS: PANTOPRAZOLE SOD 40 MG DELAYED RELEASE TAB PO SCH (08:15)
[2016-11-04] MEDS: BUDESONIDE-FORMOTEROL 160/4.5 MCG INHALER INH SCH ×2 (08:16→21:13)
--- NOTE | 2016-11-04 08:28 | HHI.PR ---
Subjective History of Present Illness Patient have sever wheezing not able to walk because of SOB/ Wheezing.. Right hip pain better. INR 3.5 on coumadin 2 mg PO Daily.... monitor INR. high LFTs monitoring Low Potassium will replace and monitor. Review of Systems Constitutional Constitutional: Fatigue, Weakness Pulmonary Respiratory: Shortness of Breath, Wheezing Musculoskeletal MS Remarks Right Hip pain/ swelling. Integumentary Skin Remarks right hip bruise. Vitals/Results Intake & Output 11/03/16 11/03/16 11/04/16 15:00 23:00 07:00 Intake Total 1280 ml 240 ml Output Total 1375 ml 500 ml Balance -95 ml -260 ml Intake Oral 1280 ml 240 ml Output Urine Total 1375 ml 500 ml # Voids 2 # Bowel Movements 2 0 Vital Signs Vital Signs Date Time Temp Pulse Resp B/P Pulse Ox O2 Delivery O2 Flow Rate FiO2 11/04/16 00:00 97.0 114 16 131/94 95 11/03/16 20:55 Nasal Cannula 2.00 11/03/16 20:00 98.2 118 17 140/92 96 11/03/16 16:00 98.0 105 18 115/89 98 11/03/16 12:00 96.1 114 18 122/91 95 CBC/BMP: 11/02/16 0430 11/02/16 0430 Lab Results Laboratory Tests Test 11/03/16 11/04/16 16:10 05:16 Prothrombin Time 28.6 SEC 33.5 SEC Prothromb Time International 2.5 RATIO 2.9 RATIO Ratio Physical Exam General General Appearance: Well Developed, No Acute Distress, Comfortable Eyes Eye Exam: Pupils Equal, Pupils Reactive Throat Throat Exam: Oral Mucosa [place] & Moist Neck Neck Exam: Neck Supple, Trachea Midline Pulmonary Resp Exam: Diminished Breath Sounds Resp Remarks Sever Bilateral Wheezing. Cardiology CV Exam: Regular, Normal Sinus Rhythm Gastrointestinal/Abdomen GI Exam: Soft, Non-Tender, Bowel Sounds Present, Non-Distended Musculoskeletal MS Exam: Normal Tone Integumentary Skin Exam: Warm, Dry Extremeties Extremities Exam: No Edema Neurologic Neuro Exam: Alert, Awake, Oriented, Speech Clear, Moving All Extremities, Recovery Room Nurse Equal, No Focal Deficits Psychiatric Psych Exam: Appropriate Responses VTE Prophylaxis VTE Prophylaxis Meds: Coumadin PUD Prophylasis PUD Prophylaxis: Protonix Assessment/Plan Assessment/Plan ASSESSMENT AND PLAN: 1. Asthma exacerbation-continue oxygen, PO Prednisone, appreciate pulm input, Xopenex and Atrovent Apply humidifier to oxygen 2. History for right hip infection with fungus. The patient is on Diflucan + Micafungin.. He has right hip swelling and pain. Right hip ultrasound noted orthopedic input noted s/p needle drainage of hematoma right hip, per orthopedic not getting right hip hardware removed. S/P MRI Right hip shows 12 cm hematoma/seroma. s/p needle drainage... S/P CT Pelvis show no more hematoma collection 3. Septic right hip. The patient is on Diflucan + Micafungin... Infectious disease input noted.. Will monitor. 4. History of chronic obstructive pulmonary disease. Continue home medications. 5. History of depression. Continue home medications. 6. History of anxiety. Continue with Ativan 0.5 milligrams twice a day. 7. Right hip pain. The patient on tramadol and [place] and also Dilaudid 0.5 milligrams p.o. q. 6 hours PRN pain. 8. History of hyperlipidemia. Continue on Lipitor 20 milligrams p.o. daily. 9. History of pulmonary embolism and DVT right leg. INR 3.4 on coumadin 2 mg PO Daily. Will monitor INR daily. 10. High blood sugar continue with ISS + Levemir 20 units subcut. HS. monitoring blood glucose 11. Leg edema on Lasix 40 mg IV BID DVT prophylaxis. . on coumadin. GI prophylaxis. Protonix 40 milligrams p.o. daily/ Carafate 1 gram p.o. three times a day. DC plan in progress, IV Abx being arranged for OP . Discussed Condition with: Patient Myron Woodward MD Nov 04, 2016 08:28
[2016-11-04] MEDS: ACETAMINOPHEN/HYDROcodone 325 MG/7.5 MG TAB PO PRN ×2 (14:16→21:13)
--- NOTE | 2016-11-04 14:50 | HHI.PR ---
Subjective Remarks no sob no fever or chill no cough or sputum OCCASIONAL WHEEZE Objective Vital Signs Date Time Temp Pulse Resp B/P Pulse Ox O2 Delivery O2 Flow Rate FiO2 11/04/16 12:00 97.1 84 18 114/87 97 11/04/16 08:50 97 Nasal Cannula 2.00 11/04/16 08:00 96.4 111 18 140/87 94 11/04/16 00:00 97.0 114 16 131/94 95 11/03/16 20:55 Nasal Cannula 2.00 11/03/16 20:00 98.2 118 17 140/92 96 11/03/16 16:00 98.0 105 18 115/89 98 I/O 11/03/16 11/03/16 11/03/16 11/04/16 11/04/16 11/04/16 07:00 15:00 23:00 07:00 15:00 23:00 Intake Total 480 ml 1280 ml 240 ml Output Total 800 ml 1375 ml 500 ml Balance -320 ml -95 ml -260 ml Intake Oral 480 ml 1280 ml 240 ml Output Urine Total 800 ml 1375 ml 500 ml # Voids 2 # Bowel Movements 2 0 Result Diagram: 11/02/1642911/02/16 043 Objective Remarks GENERAL: SKIN: Warm and dry. HEAD: Atraumatic. Normocephalic. EYES: Pupils equal and round. No scleral icterus. No injection or drainage. ENT: No nasal bleeding or discharge. Mucous membranes pink and moist. NECK: Trachea midline. No JVD. CARDIOVASCULAR: Regular rate and rhythm. RESPIRATORY: No accessory muscle use. Clear to auscultation. Breath sounds equal bilaterally. GASTROINTESTINAL: Abdomen soft, non-tender, nondistended. Hepatic and splenic margins not palpable. MUSCULOSKELETAL: Extremities without clubbing, cyanosis, or edema. No obvious deformities. NEUROLOGICAL: Awake and alert. No obvious cranial nerve deficits. Motor grossly within normal limits. Five out of 5 muscle strength in the arms and legs. Normal speech. PSYCHIATRIC: Appropriate mood and affect; insight and judgment normal. Assessment and Plan Assessment and Plan pulm improving with occasional wheeze DVT/PE ON COUMADIN plan ContIinue O2 therapy INCREASE ACTIVITY bronchodilators taper steroids as tolerated Mary Hernandez MD Nov 04, 2016 14:50
[2016-11-04] MEDS: MICAFUNGIN INJ 150 MG in SODIUM CHLORIDE 0.9% INJ 100 ML IV SCH (16:59)
[2016-11-04] MEDS: WARFARIN SOD 2 MG TAB PO SCH (17:00)
[2016-11-04 19:09] LABS: INTERNATIONAL NORMALIZED RATIO 3.5 RATIO; PROTHROMBIN TIME - PATIENT 40.5 SEC (9.8-11.6)
[2016-11-04] MEDS: ATORVASTATIN 20 MG TAB PO SCH (21:13)
[2016-11-04] MEDS: MONTELUKAST SODIUM 10 MG TAB PO SCH (21:13)
[2016-11-04] MEDS: INSULIN DETEMIR 100 UNITS/ML VIAL SQ SCH (21:19)
[2016-11-05] VITALS (11 sets, daily range): BP systolic 127–143; BP diastolic 85–106; PULSE 105–127; RESP 16–20; TEMP 97–97.4; O2SAT 93–98
[2016-11-05] MEDS: RESP: ALBUTEROL 2.5 MG/IPRATROPIUM 0.5 MG NEB (SCH) NEB ×8 (02:00→23:05)
[2016-11-05] MEDS: oxyCODONE HCL 20 MG CONTROLLED RELEASE TAB PO SCH ×2 (05:40→17:20)
[2016-11-05] MEDS: INSULIN ASPART SUPPLEMENTAL SCALE SQ SCH ×4 (05:46→21:00)
[2016-11-05 06:22] LABS: INTERNATIONAL NORMALIZED RATIO 4.3 RATIO; PROTHROMBIN TIME - PATIENT 50.7 SEC (9.8-11.6)
[2016-11-05 06:27] LABS: AUTOMATED NEUTROPHIL # 5.6 TH/MM3 (1.8-7.7); BASOPHIL % 0.6 % (0.0-2.0); EOSINOPHIL % 0.6 % (0.0-4.0); HEMATOCRIT 29.1 % (39.0-51.0); LYMPHOCYTE # 1.5 TH/MM3 (1.0-4.8); MEAN CELL VOLUME 74.6 FL (80.0-100.0); MEAN CORPUSCULAR HEMOGLOBIN 23.6 PG (27.0-34.0); MEAN CORPUSCULAR HGB CONC 31.7 % (32.0-36.0); NEUT % 71.8 % (16.0-70.0); PLATELET COUNT 308 TH/MM3 (150-450); RED CELL DISTRIBUTION WIDTH 22.7 % (11.6-17.2); WHITE BLOOD COUNT 7.8 TH/MM3 (4.0-11.0)
[2016-11-05 06:37] LABS: HEMO FLAGS AUTO DIFF
[2016-11-05 06:45] LABS: ALT (GPT) 152 U/L (12-78); ANION GAP 9 MEQ/L (5-15); AST (GOT) 48 U/L (15-37); BICARBONATE 30.9 MEQ/L (21.0-32.0); BLOOD UREA NITROGEN 12 MG/DL (7-18); CHLORIDE 100 MEQ/L (98-107); GLOMERULAR FILTRATION RATE 109 ML/MIN (>89); POTASSIUM 3.3 MEQ/L (3.5-5.1); SODIUM (NA) 140 MEQ/L (136-145)
[2016-11-05 06:47] LABS: ALKALINE PHOSPHATASE 122 U/L (45-117); TOTAL BILIRUBIN ADULT 0.2 MG/DL (0.2-1.0)
[2016-11-05 08:25] LABS: BANDS 3 % (0-6); CORRECTED NUCLEATED RBC 2 /100 WBC (0-0); EOSINOPHILS 1 % (0-4); MYELOCYTES 6 % (0-0); NEUTROPHIL # MANUAL DIFF 6.3 TH/MM3 (1.8-7.7); PLATELET ESTIMATE SMEAR NORMAL (NORMAL); PLATELET MORPHOLOGY NORMAL (NORMAL); POLYS (SEG NEUTROPHILS) 72 % (16-70); WBC DIFF SAMPLE 100
[2016-11-05 08:26] LABS: SCAN/DIFF FINAL DIFF MANUAL
[2016-11-05 08:27] LABS: OVALOCYTES 1+ (NORMAL)
--- NOTE | 2016-11-05 08:56 | HHI.PR ---
Subjective Remarks no sob no fever or chill no cough or sputum OCCASIONAL WHEEZE Objective Vital Signs Date Time Temp Pulse Resp B/P Pulse Ox O2 Delivery O2 Flow Rate FiO2 11/05/16 08:08 98 Nasal Cannula 2.00 11/05/16 00:00 97.4 110 16 135/89 97 11/04/16 22:10 96 Nasal Cannula 2.00 11/04/16 21:21 Nasal Cannula 2.00 Humid[place] 11/04/16 20:26 96 Nasal Cannula 2.00 11/04/16 20:00 97.0 110 16 137/96 97 11/04/16 16:00 97.1 115 18 133/90 96 11/04/16 12:00 97.1 84 18 114/87 97 I/O 11/04/16 11/04/16 11/04/16 11/05/16 11/05/16 11/05/16 07:00 15:00 23:00 07:00 15:00 23:00 Intake Total 240 ml 1260 ml 480 ml Output Total 500 ml 500 ml 1100 ml Balance -260 ml 1260 ml -20 ml -1100 ml Intake Oral 240 ml 1260 ml 480 ml Output Urine Total 500 ml 500 ml 1100 ml # Voids 5 # Bowel Movements 0 2 0 Result Diagram: 11/05/16 0550 11/05/16 0550 Objective Remarks GENERAL: SKIN: Warm and dry. HEAD: Atraumatic. Normocephalic. EYES: Pupils equal and round. No scleral icterus. No injection or drainage. ENT: No nasal bleeding or discharge. Mucous membranes pink and moist. NECK: Trachea midline. No JVD. CARDIOVASCULAR: Regular rate and rhythm. RESPIRATORY: No accessory muscle use. Clear to auscultation. Breath sounds equal bilaterally. GASTROINTESTINAL: Abdomen soft, non-tender, nondistended. Hepatic and splenic margins not palpable. MUSCULOSKELETAL: Extremities without clubbing, cyanosis, or edema. No obvious deformities. NEUROLOGICAL: Awake and alert. No obvious cranial nerve deficits. Motor grossly within normal limits. Five out of 5 muscle strength in the arms and legs. Normal speech. PSYCHIATRIC: Appropriate mood and affect; insight and judgment normal. Assessment and Plan Assessment and Plan pulm improving with occasional wheeze DVT/PE ON COUMADIN plan ContIinue O2 therapy INCREASE ACTIVITY bronchodilators taper steroids as tolerated Mary Henrandez MD Nov 05, 2016 08:56
[2016-11-05] MEDS: PANTOPRAZOLE SOD 40 MG DELAYED RELEASE TAB PO SCH (09:50)
[2016-11-05] MEDS: FLUCONAZOLE 200 MG TAB PO SCH (09:51)
[2016-11-05] MEDS: DILTIAZEM-CD 180 MG CAP ER PO SCH (09:51)
[2016-11-05] MEDS: POTASSIUM CHLORIDE 10 MEQ CONTROLLED RELEASE TAB PO SCH ×2 (09:51→21:57)
[2016-11-05] MEDS: ACETAMINOPHEN/HYDROcodone 325 MG/7.5 MG TAB PO PRN ×2 (09:52→18:42)
[2016-11-05] MEDS: LORazepam 0.5 MG TAB PO SCH ×2 (09:53→21:57)
[2016-11-05] MEDS: FUROSEMIDE 40 MG/4 ML VIAL IV PUSH SCH ×2 (09:54→17:21)
[2016-11-05] MEDS: SUCRALFATE 1 GM TAB PO SCH ×3 (09:55→17:20)
[2016-11-05] MEDS: BUDESONIDE-FORMOTEROL 160/4.5 MCG INHALER INH SCH ×2 (09:55→21:56)
[2016-11-05] MEDS: predniSONE 10 MG TAB PO SCH ×2 (09:58→21:57)
[2016-11-05 10:34] LABS: PROTHROMBIN TIME - PATIENT 46.6 SEC (9.8-11.6)
[2016-11-05] MEDS: traMADol HCL 50 MG TAB PO PRN ×2 (13:54→21:57)
[2016-11-05] MEDS: PROMETHAZINE/CODEINE 6.25 MG/10 MG/5 ML CUP PO PRN (13:55)
[2016-11-05] MEDS: MICAFUNGIN INJ 150 MG in SODIUM CHLORIDE 0.9% INJ 100 ML IV SCH (17:21)
[2016-11-05] MEDS ORDERED: POTASSIUM CHLORIDE 10 MEQ CONTROLLED RELEASE TAB PO ONE (17:30)
--- NOTE | 2016-11-05 17:34 | HHI.PR ---
Subjective History of Present Illness Patient have sever wheezing not able to walk because of SOB/ Wheezing.. Right hip pain better. INR 4.0 hold on coumadin 2 mg PO Daily.... monitor INR. high LFTs monitoring Low Potassium will replace and monitor. Review of Systems Constitutional Constitutional: Fatigue, Weakness Pulmonary Respiratory: Shortness of Breath, Wheezing Musculoskeletal MS Remarks Right Hip pain/ swelling. Integumentary Skin Remarks right hip bruise. Vitals/Results Intake & Output 11/04/16 11/04/16 11/05/16 14:59 22:59 06:59 Intake Total 1260 ml 480 ml Output Total 500 ml 1100 ml Balance 1260 ml -20 ml -1100 ml Intake Oral 1260 ml 480 ml Output Urine Total 500 ml 1100 ml # Voids 5 # Bowel Movements 2 0 Vital Signs Vital Signs Date Time Temp Pulse Resp B/P Pulse Ox O2 Delivery O2 Flow Rate FiO2 11/05/16 16:00 96 Nasal Cannula 2.00 11/05/16 14:55 17 11/05/16 14:03 95 11/05/16 12:00 97.0 127 18 141/85 93 11/05/16 10:56 97 Nasal Cannula 2.00 11/05/16 10:52 18 11/05/16 08:08 98 Nasal Cannula 2.00 11/05/16 08:00 97.2 105 18 143/92 96 11/05/16 00:00 97.4 110 16 135/89 97 11/04/16 22:10 96 Nasal Cannula 2.00 11/04/16 21:21 Nasal Cannula 2.00 Humidified 11/04/16 20:26 96 Nasal Cannula 2.00 11/04/16 20:00 97.0 110 16 137/96 97 CBC/BMP: 11/05/16 0550 11/05/16 0550 Lab Results Laboratory Tests Test 11/04/16 11/05/16 11/05/16 18:40 05:50 10:00 Prothrombin Time 40.5 SEC 50.7 SEC 46.6 SEC Prothromb Time International 3.5 RATIO 4.3 RATIO 4.0 RATIO Ratio White Blood Count 7.8 TH/MM3 Red Blood Count 3.90 MIL/MM3 Hemoglobin 9.2 GM/DL Hematocrit 29.1 % Mean Corpuscular Volume 74.6 FL Mean Corpuscular Hemoglobin 23.6 PG Mean Corpuscular Hemoglobin 31.7 % Concent Red Cell Distribution Width 22.7 % Platelet Count 308 TH/MM3 Mean Platelet Volume 6.6 FL Neutrophils (%) (Auto) 71.8 % Lymphocytes (%) (Auto) 19.0 % Monocytes (%) (Auto) 8.0 % Eosinophils (%) (Auto) 0.6 % Basophils (%) (Auto) 0.6 % Neutrophils # (Auto) 5.6 TH/MM3 Lymphocytes # (Auto) 1.5 TH/MM3 Monocytes # (Auto) 0.6 TH/MM3 Eosinophils # (Auto) 0.0 TH/MM3 Basophils # (Auto) 0.0 TH/MM3 CBC Comment AUTO DIFF Differential Total Cells 100 Counted Neutrophils % (Manual) 72 % Band Neutrophils % 3 % Lymphocytes % 17 % Monocytes % 1 % Eosinophils % 1 % Neutrophils # (Manual) 6.3 TH/MM3 Myelocytes 6 % Nucleated Red Blood Cells 2 /100 WBC Differential Comment FINAL DIFF MANUAL Platelet Estimate NORMAL Platelet Morphology Comment NORMAL Basophilic [place] Ovalocytes 1+ Sodium Level 140 MEQ/L Potassium Level 3.3 MEQ/L Chloride Level 100 MEQ/L Carbon Dioxide Level 30.9 MEQ/L Anion Gap 9 MEQ/L Blood Urea Nitrogen 12 MG/DL Creatinine 0.75 MG/DL Estimat Glomerular Filtration 109 ML/MIN Rate Random Glucose 122 MG/DL Calcium Level 9.0 MG/DL Total Bilirubin 0.2 MG/DL Aspartate Amino Transf 48 U/L (AST/SGOT) Alanine Aminotransferase 152 U/L (ALT/SGPT) Alkaline Phosphatase 122 U/L Total Protein 6.1 GM/DL Albumin 3.6 GM/DL Physical Exam General General Appearance: Well Developed, No Acute Distress, Comfortable Eyes Eye Exam: Pupils Equal, Pupils Reactive, Sclera White, Extraocular Movement Intact Throat Throat Exam: Oral Mucosa [place] & Moist Neck Neck Exam: Neck Supple, Trachea Midline Pulmonary Resp Exam: Diminished Breath Sounds Resp Remarks Sever Bilateral Wheezing. Cardiology CV Exam: Regular, Normal Sinus Rhythm Gastrointestinal/Abdomen GI Exam: Soft, Non-Tender, Bowel Sounds Present, Non-Distended Musculoskeletal MS Exam: Normal Tone Integumentary Skin Exam: Warm, Dry Extremeties Extremities Exam: No Edema Neurologic Neuro Exam: Alert, Awake, Oriented, Speech Clear, Moving All Extremities, Cvir Tech Equal, No Focal Deficits Psychiatric Psych Exam: Appropriate Responses VTE Prophylaxis VTE Prophylaxis Meds: Coumadin PUD Prophylasis PUD Prophylaxis: Protonix Assessment/Plan Assessment/Plan ASSESSMENT AND PLAN: 1. Asthma exacerbation-continue oxygen, PO Prednisone, appreciate pulm input, Xopenex and Atrovent Apply humidifier to oxygen 2. History for right hip infection with fungus. The patient is on Diflucan + Micafungin.. He has right hip swelling and pain. Right hip ultrasound noted orthopedic input noted s/p needle drainage of hematoma right hip, per orthopedic not getting right hip hardware removed. S/P MRI Right hip shows 12 cm hematoma/seroma. s/p needle drainage... S/P CT Pelvis show no more hematoma collection 3. Septic right hip. The patient is on Diflucan + Micafungin... Infectious disease input noted.. Will monitor. 4. History of chronic obstructive pulmonary disease. Continue home medications. 5. History of depression. Continue home medications. 6. History of anxiety. Continue with Ativan 0.5 milligrams twice a day. 7. Right hip pain. The patient on tramadol and [place] and also Dilaudid 0.5 milligrams p.o. q. 6 hours PRN pain. 8. History of hyperlipidemia. Continue on Lipitor 20 milligrams p.o. daily. 9. History of pulmonary embolism and DVT right leg. INR 4.0 hold on coumadin 2 mg PO Daily. Will monitor INR daily. 10. High blood sugar continue with ISS + Levemir 20 units subcut. HS. monitoring blood glucose 11. Leg edema on Lasix 40 mg IV BID 12. Hypokalemia..will replace and monitor. DVT prophylaxis. . off coumadin. high INR. GI prophylaxis. Protonix 40 milligrams p.o. daily/ Carafate 1 gram p.o. three times a day. DC plan in progress, IV Abx being arranged for OP . Discussed Condition with: Patient Myron Woodward MD Nov 05, 2016 17:33
[2016-11-05] MEDS: MONTELUKAST SODIUM 10 MG TAB PO SCH (21:57)
[2016-11-05] MEDS: ATORVASTATIN 20 MG TAB PO SCH (21:57)
[2016-11-05] MEDS: INSULIN DETEMIR 100 UNITS/ML VIAL SQ SCH (21:58)
[2016-11-06] VITALS (8 sets, daily range): BP systolic 131–159; BP diastolic 98–106; PULSE 106–125; RESP 20; TEMP 95.7–96.8; O2SAT 94–100
[2016-11-06] MEDS: RESP: ALBUTEROL 2.5 MG/IPRATROPIUM 0.5 MG NEB (SCH) NEB ×5 (01:59→19:22)
[2016-11-06] MEDS: oxyCODONE HCL 20 MG CONTROLLED RELEASE TAB PO SCH ×2 (06:05→17:07)
[2016-11-06] MEDS: INSULIN ASPART SUPPLEMENTAL SCALE SQ SCH ×4 (06:07→21:32)
[2016-11-06 06:53] LABS: INTERNATIONAL NORMALIZED RATIO 3.6 RATIO; PROTHROMBIN TIME - PATIENT 42.1 SEC (9.8-11.6)
--- NOTE | 2016-11-06 07:33 | HHI.PR ---
Subjective History of Present Illness Patient have sever wheezing not able to walk because of SOB/ Wheezing...D/W SHAZIA Medrano at bed side. Right hip pain better. INR 3.6 hold on coumadin 2 mg PO Daily.... monitor INR. high LFTs monitoring Low Potassium will replace and monitor. Review of Systems Constitutional Constitutional: Fatigue, Weakness Pulmonary Respiratory: Shortness of Breath, Wheezing Musculoskeletal MS Remarks Right Hip pain/ swelling. Integumentary Skin Remarks right hip bruise. Vitals/Results Intake & Output 11/05/16 11/05/16 11/06/16 15:00 23:00 07:00 Intake Total 600 ml 460 ml Output Total 850 ml 350 ml Balance -250 ml 110 ml Intake Oral 600 ml 460 ml Output Urine Total 850 ml 350 ml # Bowel Movements 1 0 Vital Signs Vital Signs Date Time Temp Pulse Resp B/P Pulse Ox O2 Delivery O2 Flow Rate FiO2 11/06/16 01:59 94 21 11/06/16 00:00 96.6 106 20 131/105 100 11/05/16 23:05 97 Nasal Cannula 2.00 11/05/16 21:00 98 Nasal Cannula 2.00 11/05/16 20:44 98 Nasal Cannula 2.00 11/05/16 20:34 98 Nasal Cannula 3.00 11/05/16 20:00 97.2 105 20 140/106 98 11/05/16 16:00 97.0 114 18 127/91 96 11/05/16 16:00 96 Nasal Cannula 2.00 11/05/16 14:55 17 11/05/16 14:03 95 11/05/16 12:00 97.0 127 18 141/85 93 11/05/16 10:56 97 Nasal Cannula 2.00 11/05/16 10:52 18 11/05/16 08:08 98 Nasal Cannula 2.00 11/05/16 08:00 97.2 105 18 143/92 96 CBC/BMP: 11/05/16 0550 11/05/16 0550 Lab Results Laboratory Tests Test 11/05/16 11/06/16 10:00 06:11 Prothrombin Time 46.6 SEC 42.1 SEC Prothromb Time International 4.0 RATIO 3.6 RATIO Ratio Physical Exam General General Appearance: Well Developed, No Acute Distress, Comfortable Eyes Eye Exam: Pupils Equal, Pupils Reactive, Sclera White, Extraocular Movement Intact Throat Throat Exam: Oral Mucosa [place] & Moist Neck Neck Exam: Neck Supple, Trachea Midline Pulmonary Resp Exam: Diminished Breath Sounds Resp Remarks Sever Bilateral Wheezing. Cardiology CV Exam: Regular, Normal Sinus Rhythm Gastrointestinal/Abdomen GI Exam: Soft, Non-Tender, Bowel Sounds Present, Non-Distended Musculoskeletal MS Exam: Normal Tone Integumentary Skin Exam: Warm, Dry Extremeties Extremities Exam: No Edema Neurologic Neuro Exam: Alert, Awake, Oriented, Speech Clear, Moving All Extremities, Radio Frequency Engineer Equal, No Focal Deficits Psychiatric Psych Exam: Appropriate Responses VTE Prophylaxis VTE Prophylaxis Meds: Coumadin PUD Prophylasis PUD Prophylaxis: Protonix Assessment/Plan Assessment/Plan ASSESSMENT AND PLAN: 1. Asthma exacerbation-continue oxygen, PO Prednisone, appreciate pulm input, Xopenex and Atrovent Apply humidifier to oxygen 2. History for right hip infection with fungus. The patient is on Diflucan + Micafungin.. He has right hip swelling and pain. Right hip ultrasound noted orthopedic input noted s/p needle drainage of hematoma right hip, per orthopedic not getting right hip hardware removed. S/P MRI Right hip shows 12 cm hematoma/seroma. s/p needle drainage... S/P CT Pelvis show no more hematoma collection 3. Septic right hip. The patient is on Diflucan + Micafungin... Infectious disease input noted.. Will monitor. 4. History of chronic obstructive pulmonary disease. Continue home medications. 5. History of depression. Continue home medications. 6. History of anxiety. Continue with Ativan 0.5 milligrams twice a day. 7. Right hip pain. The patient on tramadol and [place] and also Dilaudid 0.5 milligrams p.o. q. 6 hours PRN pain. 8. History of hyperlipidemia. Continue on Lipitor 20 milligrams p.o. daily. 9. History of pulmonary embolism and DVT right leg. INR 3.6 hold on coumadin 2 mg PO Daily. Will monitor INR daily. 10. High blood sugar continue with ISS + Levemir 20 units subcut. HS. monitoring blood glucose 11. Leg edema on Lasix 40 mg IV BID 12. Hypokalemia..will replace and monitor. DVT prophylaxis. . off coumadin. high INR. GI prophylaxis. Protonix 40 milligrams p.o. daily/ Carafate 1 gram p.o. three times a day. DC plan in progress, IV Abx being arranged for OP . Discussed Condition with: Patient Myron Woodward MD Nov 06, 2016 07:33
[2016-11-06] MEDS: BUDESONIDE-FORMOTEROL 160/4.5 MCG INHALER INH SCH ×2 (09:36→21:23)
[2016-11-06] MEDS: FLUCONAZOLE 200 MG TAB PO SCH (09:36)
[2016-11-06] MEDS: predniSONE 10 MG TAB PO SCH ×2 (09:36→21:24)
[2016-11-06] MEDS: DILTIAZEM-CD 180 MG CAP ER PO SCH (09:36)
[2016-11-06] MEDS: POTASSIUM CHLORIDE 10 MEQ CONTROLLED RELEASE TAB PO SCH ×2 (09:36→21:24)
[2016-11-06] MEDS: LORazepam 0.5 MG TAB PO SCH ×2 (09:36→21:24)
[2016-11-06] MEDS: PANTOPRAZOLE SOD 40 MG DELAYED RELEASE TAB PO SCH (09:36)
[2016-11-06] MEDS: FUROSEMIDE 40 MG/4 ML VIAL IV PUSH SCH ×2 (09:37→16:18)
[2016-11-06] MEDS: SUCRALFATE 1 GM TAB PO SCH ×3 (09:38→16:17)
[2016-11-06] MEDS: RESP: ALBUTEROL 2.5 MG/IPRATROPIUM 0.5 MG NEB (PRN) NEB ×2 (15:34→23:00)
[2016-11-06] MEDS: PROMETHAZINE/CODEINE 6.25 MG/10 MG/5 ML CUP PO PRN (16:17)
[2016-11-06] MEDS: MICAFUNGIN INJ 150 MG in SODIUM CHLORIDE 0.9% INJ 100 ML IV SCH (16:18)
[2016-11-06] MEDS: ACETAMINOPHEN/HYDROcodone 325 MG/7.5 MG TAB PO PRN (16:18)
[2016-11-06] MEDS: traMADol HCL 50 MG TAB PO PRN (20:08)
[2016-11-06] MEDS: MONTELUKAST SODIUM 10 MG TAB PO SCH (21:23)
[2016-11-06] MEDS: ATORVASTATIN 20 MG TAB PO SCH (21:23)
[2016-11-06] MEDS: INSULIN DETEMIR 100 UNITS/ML VIAL SQ SCH (21:31)
[2016-11-07] VITALS (7 sets, daily range): BP systolic 127–141; BP diastolic 93–105; PULSE 104–119; RESP 18–20; TEMP 96–98.1; O2SAT 96–99
[2016-11-07] MEDS: ACETAMINOPHEN/HYDROcodone 325 MG/7.5 MG TAB PO PRN ×2 (01:31→21:04)
[2016-11-07] MEDS: PROMETHAZINE/CODEINE 6.25 MG/10 MG/5 ML CUP PO PRN ×3 (01:31→23:04)
[2016-11-07] MEDS: RESP: ALBUTEROL 2.5 MG/IPRATROPIUM 0.5 MG NEB (PRN) NEB (03:46)
[2016-11-07] MEDS: INSULIN ASPART SUPPLEMENTAL SCALE SQ SCH ×4 (05:44→21:06)
[2016-11-07] MEDS: oxyCODONE HCL 20 MG CONTROLLED RELEASE TAB PO SCH ×2 (05:44→17:41)
[2016-11-07] MEDS: traMADol HCL 50 MG TAB PO PRN ×2 (05:51→19:37)
[2016-11-07 07:16] LABS: CHLORIDE 98 MEQ/L (98-107); POTASSIUM 3.2 MEQ/L (3.5-5.1); SODIUM (NA) 139 MEQ/L (136-145)
[2016-11-07 07:17] LABS: AUTOMATED NEUTROPHIL # 6.8 TH/MM3 (1.8-7.7); BASOPHIL % 0.4 % (0.0-2.0); EOSINOPHIL # 0.1 TH/MM3 (0-0.4); EOSINOPHIL % 0.6 % (0.0-4.0); HEMATOCRIT 29.9 % (39.0-51.0); LYMPH % 13.8 % (9.0-44.0); LYMPHOCYTE # 1.2 TH/MM3 (1.0-4.8); MEAN CELL VOLUME 75.3 FL (80.0-100.0); MEAN CORPUSCULAR HGB CONC 31.9 % (32.0-36.0); MONO % 5.8 % (0.0-8.0); NEUT % 79.4 % (16.0-70.0); PLATELET COUNT 350 TH/MM3 (150-450); RED BLOOD COUNT 3.97 MIL/MM3 (4.50-5.90); RED CELL DISTRIBUTION WIDTH 22.3 % (11.6-17.2); WHITE BLOOD COUNT 8.6 TH/MM3 (4.0-11.0)
[2016-11-07 07:18] LABS: INTERNATIONAL NORMALIZED RATIO 2.5 RATIO; PROTHROMBIN TIME - PATIENT 28.8 SEC (9.8-11.6)
[2016-11-07 07:19] LABS: ANION GAP 10 MEQ/L (5-15); BICARBONATE 30.9 MEQ/L (21.0-32.0); BLOOD UREA NITROGEN 16 MG/DL (7-18)
[2016-11-07 07:22] LABS: ALT (GPT) 146 U/L (12-78); AST (GOT) 40 U/L (15-37); GLOMERULAR FILTRATION RATE 100 ML/MIN (>89)
[2016-11-07 07:24] LABS: TOTAL BILIRUBIN ADULT 0.2 MG/DL (0.2-1.0)
[2016-11-07 07:25] LABS: ALKALINE PHOSPHATASE 121 U/L (45-117)
[2016-11-07 07:42] LABS: HEMO FLAGS AUTO DIFF
[2016-11-07 07:43] LABS: PLATELET ESTIMATE SMEAR NORMAL (NORMAL); PLATELET MORPHOLOGY NORMAL (NORMAL); SCAN/DIFF AUTO DIFF CONFIRMED
[2016-11-07] MEDS: RESP: ALBUTEROL 2.5 MG/IPRATROPIUM 0.5 MG NEB (SCH) NEB ×10 (07:57→23:56)
--- NOTE | 2016-11-07 08:11 | HHI.PR ---
Subjective History of Present Illness Patient have sever wheezing not able to walk because of SOB/ Wheezing...D/W RN . Right hip pain better. INR 2.5 hold on coumadin 2 mg PO Daily.... monitor INR. high LFTs monitoring Low Potassium will replace and monitor. Review of Systems Constitutional Constitutional: Fatigue, Weakness Pulmonary Respiratory: Shortness of Breath, Wheezing Musculoskeletal MS Remarks Right Hip pain/ swelling. Integumentary Skin Remarks right hip bruise. Vitals/Results Intake & Output 11/06/16 11/06/16 11/07/16 15:00 23:00 07:00 Intake Total 900 ml 980 ml 240 ml Output Total 1875 ml 600 ml 400 ml Balance -975 ml 380 ml -160 ml Intake Oral 900 ml 980 ml 240 ml Output Urine Total 1875 ml 600 ml 400 ml # Bowel Movements 1 0 0 Vital Signs Vital Signs Date Time Temp Pulse Resp B/P Pulse Ox O2 Delivery O2 Flow Rate FiO2 11/07/16 07:59 98 21 11/07/16 00:00 96.0 104 18 132/103 96 11/06/16 20:00 96.2 117 20 159/102 97 11/06/16 19:22 97 Nasal Cannula 2.00 11/06/16 18:18 18 11/06/16 17:21 18 11/06/16 16:00 96.7 125 20 149/98 99 11/06/16 13:11 Nasal Cannula 2.00 21 11/06/16 12:00 96.8 119 20 148/101 99 CBC/BMP: 11/07/16 0601 11/07/16 0601 Lab Results Laboratory Tests Test 11/07/16 06:01 White Blood Count 8.6 TH/MM3 Red Blood Count 3.97 MIL/MM3 Hemoglobin 9.5 GM/DL Hematocrit 29.9 % Mean Corpuscular Volume 75.3 FL Mean Corpuscular Hemoglobin 24.0 PG Mean Corpuscular Hemoglobin 31.9 % Concent Red Cell Distribution Width 22.3 % Platelet Count 350 TH/MM3 Mean Platelet Volume 6.9 FL Neutrophils (%) (Auto) 79.4 % Lymphocytes (%) (Auto) 13.8 % Monocytes (%) (Auto) 5.8 % Eosinophils (%) (Auto) 0.6 % Basophils (%) (Auto) 0.4 % Neutrophils # (Auto) 6.8 TH/MM3 Lymphocytes # (Auto) 1.2 TH/MM3 Monocytes # (Auto) 0.5 TH/MM3 Eosinophils # (Auto) 0.1 TH/MM3 Basophils # (Auto) 0.0 TH/MM3 CBC Comment AUTO DIFF Differential Comment AUTO DIFF CONFIRMED Platelet Estimate NORMAL Platelet Morphology Comment NORMAL Prothrombin Time 28.8 SEC Prothromb Time International 2.5 RATIO Ratio Sodium Level 139 MEQ/L Potassium Level 3.2 MEQ/L Chloride Level 98 MEQ/L Carbon Dioxide Level 30.9 MEQ/L Anion Gap 10 MEQ/L Blood Urea Nitrogen 16 MG/DL Creatinine 0.81 MG/DL Estimat Glomerular Filtration 100 ML/MIN Rate Random Glucose 137 MG/DL Calcium Level 8.8 MG/DL Total Bilirubin 0.2 MG/DL Aspartate Amino Transf 40 U/L (AST/SGOT) Alanine Aminotransferase 146 U/L (ALT/SGPT) Alkaline Phosphatase 121 U/L Total Protein 6.3 GM/DL Albumin 3.3 GM/DL Physical Exam General General Appearance: Well Developed, No Acute Distress, Comfortable Eyes Eye Exam: Pupils Equal, Pupils Reactive, Sclera White, Extraocular Movement Intact Throat Throat Exam: Oral Mucosa [place] & Moist Neck Neck Exam: Neck Supple, Trachea Midline Pulmonary Resp Exam: Diminished Breath Sounds Resp Remarks Sever Bilateral Wheezing. Cardiology CV Exam: Regular, Normal Sinus Rhythm Gastrointestinal/Abdomen GI Exam: Soft, Non-Tender, Bowel Sounds Present, Non-Distended Musculoskeletal MS Exam: Normal Tone Integumentary Skin Exam: Warm, Dry Extremeties Extremities Exam: No Edema Neurologic Neuro Exam: Alert, Awake, Oriented, Speech Clear, Moving All Extremities, Electric [employer] Salesperson Equal, No Focal Deficits Psychiatric Psych Exam: Appropriate Responses VTE Prophylaxis VTE Prophylaxis Meds: Coumadin PUD Prophylasis PUD Prophylaxis: Protonix Assessment/Plan Assessment/Plan ASSESSMENT AND PLAN: 1. Asthma exacerbation-continue oxygen, PO Prednisone, appreciate pulm input, Xopenex and Atrovent Apply humidifier to oxygen 2. History for right hip infection with fungus. The patient is on Diflucan + Micafungin.. He has right hip swelling and pain. Right hip ultrasound noted orthopedic input noted s/p needle drainage of hematoma right hip, per orthopedic not getting right hip hardware removed. S/P MRI Right hip shows 12 cm hematoma/seroma. s/p needle drainage... S/P CT Pelvis show no more hematoma collection 3. Septic right hip. The patient is on Diflucan + Micafungin... Infectious disease input noted.. Will monitor. 4. History of chronic obstructive pulmonary disease. Continue home medications. 5. History of depression. Continue home medications. 6. History of anxiety. Continue with Ativan 0.5 milligrams twice a day. 7. Right hip pain. The patient on tramadol and [place] and also Dilaudid 0.5 milligrams p.o. q. 6 hours PRN pain. 8. History of hyperlipidemia. Continue on Lipitor 20 milligrams p.o. daily. 9. History of pulmonary embolism and DVT right leg. INR 2.5 hold on coumadin 2 mg PO Daily. Will monitor INR daily. 10. High blood sugar continue with ISS + Levemir 20 units subcut. HS. monitoring blood glucose 11. Leg edema on Lasix 40 mg IV BID 12. Hypokalemia..will replace and monitor. DVT prophylaxis. . off coumadin. high INR. GI prophylaxis. Protonix 40 milligrams p.o. daily/ Carafate 1 gram p.o. three times a day. DC plan in progress, IV Abx being arranged for OP . Discussed Condition with: Patient Myron Woodward MD Nov 07, 2016 08:11
[2016-11-07] MEDS: SUCRALFATE 1 GM TAB PO SCH ×3 (09:00→17:41)
[2016-11-07] MEDS: POTASSIUM CHLORIDE 10 MEQ CONTROLLED RELEASE TAB PO SCH ×2 (09:16→21:04)
[2016-11-07] MEDS: predniSONE 10 MG TAB PO SCH ×2 (09:16→21:11)
[2016-11-07] MEDS: FLUCONAZOLE 200 MG TAB PO SCH (09:16)
[2016-11-07] MEDS: PANTOPRAZOLE SOD 40 MG DELAYED RELEASE TAB PO SCH (09:16)
[2016-11-07] MEDS: DILTIAZEM-CD 180 MG CAP ER PO SCH (09:16)
[2016-11-07] MEDS: FUROSEMIDE 40 MG/4 ML VIAL IV PUSH SCH ×2 (09:17→17:42)
[2016-11-07] MEDS: LORazepam 0.5 MG TAB PO SCH ×2 (09:17→21:04)
[2016-11-07] MEDS: BUDESONIDE-FORMOTEROL 160/4.5 MCG INHALER INH SCH ×2 (09:19→21:03)
[2016-11-07] MEDS: WARFARIN SOD 2 MG TAB PO SCH (17:41)
[2016-11-07] MEDS: MICAFUNGIN INJ 150 MG in SODIUM CHLORIDE 0.9% INJ 100 ML IV SCH (17:42)
[2016-11-07] MEDS: ATORVASTATIN 20 MG TAB PO SCH (21:03)
[2016-11-07] MEDS: MONTELUKAST SODIUM 10 MG TAB PO SCH (21:03)
[2016-11-07] MEDS: INSULIN DETEMIR 100 UNITS/ML VIAL SQ SCH (21:05)
[2016-11-08] VITALS (7 sets, daily range): BP systolic 120–144; BP diastolic 89–102; PULSE 89–110; RESP 18–22; TEMP 96.8–98.1; O2SAT 92–100
[2016-11-08] MEDS: RESP: ALBUTEROL 2.5 MG/IPRATROPIUM 0.5 MG NEB (SCH) NEB ×4 (02:00→16:07)
[2016-11-08] MEDS: oxyCODONE HCL 20 MG CONTROLLED RELEASE TAB PO SCH ×2 (05:02→18:18)
[2016-11-08 05:41] LABS: AUTOMATED NEUTROPHIL # 6.4 TH/MM3 (1.8-7.7); BASOPHIL % 0.3 % (0.0-2.0); EOSINOPHIL % 0.3 % (0.0-4.0); HEMATOCRIT 29.3 % (39.0-51.0); LYMPH % 14.2 % (9.0-44.0); LYMPHOCYTE # 1.2 TH/MM3 (1.0-4.8); MEAN CORPUSCULAR HEMOGLOBIN 22.9 PG (27.0-34.0); MONO % 6.3 % (0.0-8.0); NEUT % 78.9 % (16.0-70.0); PLATELET COUNT 368 TH/MM3 (150-450); RED BLOOD COUNT 3.96 MIL/MM3 (4.50-5.90); RED CELL DISTRIBUTION WIDTH 21.5 % (11.6-17.2); WHITE BLOOD COUNT 8.1 TH/MM3 (4.0-11.0)
[2016-11-08 05:49] LABS: CHLORIDE 98 MEQ/L (98-107); POTASSIUM 3.2 MEQ/L (3.5-5.1); SODIUM (NA) 139 MEQ/L (136-145)
[2016-11-08 05:50] LABS: HEMO FLAGS AUTO DIFF
[2016-11-08 05:51] LABS: INTERNATIONAL NORMALIZED RATIO 2.2 RATIO; PROTHROMBIN TIME - PATIENT 25.7 SEC (9.8-11.6)
[2016-11-08 05:55] LABS: ANION GAP 9 MEQ/L (5-15); BICARBONATE 31.9 MEQ/L (21.0-32.0); BLOOD UREA NITROGEN 16 MG/DL (7-18)
[2016-11-08 05:58] LABS: ALT (GPT) 145 U/L (12-78); AST (GOT) 39 U/L (15-37); GLOMERULAR FILTRATION RATE 105 ML/MIN (>89)
[2016-11-08 05:59] LABS: TOTAL BILIRUBIN ADULT 0.3 MG/DL (0.2-1.0)
[2016-11-08] MEDS: INSULIN ASPART SUPPLEMENTAL SCALE SQ SCH ×4 (05:59→20:09)
[2016-11-08 06:01] LABS: ALKALINE PHOSPHATASE 120 U/L (45-117)
[2016-11-08 06:19] LABS: OVALOCYTES 1+ (NORMAL); PLATELET ESTIMATE SMEAR NORMAL (NORMAL); PLATELET MORPHOLOGY NORMAL (NORMAL); SCAN/DIFF AUTO DIFF CONFIRMED
[2016-11-08] MEDS: PROMETHAZINE/CODEINE 6.25 MG/10 MG/5 ML CUP PO PRN (06:25)
[2016-11-08] MEDS: traMADol HCL 50 MG TAB PO PRN (06:25)
--- NOTE | 2016-11-08 08:07 | HHI.PR ---
Subjective History of Present Illness Patient have sever wheezing not able to walk because of SOB/ Wheezing...D/W RN . Right hip pain better. INR 2.2 restart coumadin 2 mg PO Daily.... monitor INR. high LFTs monitoring Low Potassium will replace and monitor. Review of Systems Constitutional Constitutional: Fatigue, Weakness Pulmonary Respiratory: Shortness of Breath, Wheezing Musculoskeletal MS Remarks Right Hip pain/ swelling. Integumentary Skin Remarks right hip bruise. Vitals/Results Intake & Output 11/07/16 11/07/16 11/08/16 15:00 23:00 07:00 Intake Total 1000 ml 1920 ml 120 ml Output Total 1600 ml 2000 ml 675 ml Balance -600 ml -80 ml -555 ml Intake Oral 1000 ml 1920 ml 120 ml Output Urine Total 1600 ml 2000 ml 675 ml # Voids 4 1 # Bowel Movements 0 0 0 Vital Signs Vital Signs Date Time Temp Pulse Resp B/P Pulse Ox O2 Delivery O2 Flow Rate FiO2 11/08/16 00:00 98.1 101 20 125/97 98 11/07/16 21:55 18 11/07/16 21:20 98 Nasal Cannula 2.00 11/07/16 21:02 18 11/07/16 20:00 98.1 112 20 127/93 99 11/07/16 19:25 18 11/07/16 16:00 97.0 119 20 141/99 99 11/07/16 12:00 96.0 119 20 141/105 98 CBC/BMP: 11/08/16 0510 11/08/16 0510 Lab Results Laboratory Tests Test 11/08/16 05:10 White Blood Count 8.1 TH/MM3 Red Blood Count 3.96 MIL/MM3 Hemoglobin 9.1 GM/DL Hematocrit 29.3 % Mean Corpuscular Volume 74.0 FL Mean Corpuscular Hemoglobin 22.9 PG Mean Corpuscular Hemoglobin 31.0 % Concent Red Cell Distribution Width 21.5 % Platelet Count 368 TH/MM3 Mean Platelet Volume 6.5 FL Neutrophils (%) (Auto) 78.9 % Lymphocytes (%) (Auto) 14.2 % Monocytes (%) (Auto) 6.3 % Eosinophils (%) (Auto) 0.3 % Basophils (%) (Auto) 0.3 % Neutrophils # (Auto) 6.4 TH/MM3 Lymphocytes # (Auto) 1.2 TH/MM3 Monocytes # (Auto) 0.5 TH/MM3 Eosinophils # (Auto) 0.0 TH/MM3 Basophils # (Auto) 0.0 TH/MM3 CBC Comment AUTO DIFF Differential Comment AUTO DIFF CONFIRMED Platelet Estimate NORMAL Platelet Morphology Comment NORMAL Ovalocytes 1+ Prothrombin Time 25.7 SEC Prothromb Time International 2.2 RATIO Ratio Sodium Level 139 MEQ/L Potassium Level 3.2 MEQ/L Chloride Level 98 MEQ/L Carbon Dioxide Level 31.9 MEQ/L Anion Gap 9 MEQ/L Blood Urea Nitrogen 16 MG/DL Creatinine 0.78 MG/DL Estimat Glomerular Filtration 105 ML/MIN Rate Random Glucose 137 MG/DL Calcium Level 8.7 MG/DL Total Bilirubin 0.3 MG/DL Aspartate Amino Transf 39 U/L (AST/SGOT) Alanine Aminotransferase 145 U/L (ALT/SGPT) Alkaline Phosphatase 120 U/L Total Protein 6.2 GM/DL Albumin 3.4 GM/DL Physical Exam General General Appearance: Well Developed, No Acute Distress, Comfortable Eyes Eye Exam: Pupils Equal, Pupils Reactive, Sclera White, Extraocular Movement Intact Throat Throat Exam: Oral Mucosa [place] & Moist Neck Neck Exam: Neck Supple, Trachea Midline Pulmonary Resp Exam: Diminished Breath Sounds Resp Remarks Sever Bilateral Wheezing. Cardiology CV Exam: Regular, Normal Sinus Rhythm Gastrointestinal/Abdomen GI Exam: Soft, Non-Tender, Bowel Sounds Present, Non-Distended Musculoskeletal MS Exam: Normal Tone Integumentary Skin Exam: Warm, Dry Extremeties Extremities Exam: No Edema Neurologic Neuro Exam: Alert, Awake, Oriented, Speech Clear, Moving All Extremities, Social Science Teacher Equal, No Focal Deficits Psychiatric Psych Exam: Appropriate Responses VTE Prophylaxis VTE Prophylaxis Meds: Coumadin PUD Prophylasis PUD Prophylaxis: Protonix Assessment/Plan Assessment/Plan ASSESSMENT AND PLAN: 1. Asthma exacerbation-continue oxygen, PO Prednisone, appreciate pulm input, Xopenex and Atrovent Apply humidifier to oxygen 2. History for right hip infection with fungus. The patient is on Diflucan + Micafungin.. He has right hip swelling and pain. Right hip ultrasound noted orthopedic input noted s/p needle drainage of hematoma right hip, per orthopedic not getting right hip hardware removed. S/P MRI Right hip shows 12 cm hematoma/seroma. s/p needle drainage... S/P CT Pelvis show no more hematoma collection 3. Septic right hip. The patient is on Diflucan + Micafungin... Infectious disease input noted.. Will monitor. 4. History of chronic obstructive pulmonary disease. Continue home medications. 5. History of depression. Continue home medications. 6. History of anxiety. Continue with Ativan 0.5 milligrams twice a day. 7. Right hip pain. The patient on tramadol and [place] and also Dilaudid 0.5 milligrams p.o. q. 6 hours PRN pain. 8. History of hyperlipidemia. Continue on Lipitor 20 milligrams p.o. daily. 9. History of pulmonary embolism and DVT right leg. INR 2.2 restart coumadin 2 mg PO Daily. Will monitor INR daily. 10. High blood sugar continue with ISS + Levemir 20 units subcut. HS. monitoring blood glucose 11. Leg edema on Lasix 40 mg IV BID 12. Hypokalemia..will replace and monitor. DVT prophylaxis. . on coumadin. monitoring INR. GI prophylaxis. Protonix 40 milligrams p.o. daily/ Carafate 1 gram p.o. three times a day. DC plan in progress, IV Abx being arranged for OP . Discussed Condition with: Patient Myron Woodward MD Nov 08, 2016 08:07
[2016-11-08] MEDS ORDERED: RESP: ALBUTEROL 2.5 MG/IPRATROPIUM 0.5 MG NEB (PRN) NEB (08:15)
[2016-11-08] MEDS: FUROSEMIDE 40 MG TAB PO SCH ×2 (09:02→18:20)
[2016-11-08] MEDS: POTASSIUM CHLORIDE 10 MEQ CONTROLLED RELEASE TAB PO SCH ×2 (09:02→20:08)
[2016-11-08] MEDS: predniSONE 10 MG TAB PO SCH ×2 (09:02→20:08)
[2016-11-08] MEDS: PANTOPRAZOLE SOD 40 MG DELAYED RELEASE TAB PO SCH (09:02)
[2016-11-08] MEDS: LORazepam 0.5 MG TAB PO SCH ×2 (09:02→20:08)
[2016-11-08] MEDS: FLUCONAZOLE 200 MG TAB PO SCH (09:02)
[2016-11-08] MEDS: DILTIAZEM-CD 180 MG CAP ER PO SCH (09:02)
[2016-11-08] MEDS: BUDESONIDE-FORMOTEROL 160/4.5 MCG INHALER INH SCH ×2 (09:04→20:09)
[2016-11-08] MEDS: SUCRALFATE 1 GM TAB PO SCH ×2 (11:35→16:49)
[2016-11-08] MEDS: MICAFUNGIN INJ 150 MG in SODIUM CHLORIDE 0.9% INJ 100 ML IV SCH (18:21)
[2016-11-08] MEDS: WARFARIN SOD 2 MG TAB PO SCH (18:21)
[2016-11-08] MEDS: MONTELUKAST SODIUM 10 MG TAB PO SCH (20:08)
[2016-11-08] MEDS: ATORVASTATIN 20 MG TAB PO SCH (20:08)
[2016-11-08] MEDS: INSULIN DETEMIR 100 UNITS/ML VIAL SQ SCH (20:08)
[2016-11-08] MEDS: ACETAMINOPHEN/HYDROcodone 325 MG/7.5 MG TAB PO PRN (23:17)
[2016-11-09 00:51] LABS: AUTOMATED NEUTROPHIL # 5.8 TH/MM3 (1.8-7.7); BASOPHIL # 0.2 TH/MM3 (0-0.2); EOSINOPHIL % 0.3 % (0.0-4.0); HEMATOCRIT 26.9 % (39.0-51.0); LYMPH % 13.2 % (9.0-44.0); MEAN CELL VOLUME 74.9 FL (80.0-100.0); MONO % 6.9 % (0.0-8.0); NEUT % 76.6 % (16.0-70.0); PLATELET COUNT 351 TH/MM3 (150-450); RED BLOOD COUNT 3.59 MIL/MM3 (4.50-5.90); RED CELL DISTRIBUTION WIDTH 21.9 % (11.6-17.2); WHITE BLOOD COUNT 7.5 TH/MM3 (4.0-11.0)
[2016-11-09 01:06] LABS: CHLORIDE 100 MEQ/L (98-107); POTASSIUM 3.2 MEQ/L (3.5-5.1); SODIUM (NA) 139 MEQ/L (136-145)
[2016-11-09 01:09] LABS: INTERNATIONAL NORMALIZED RATIO 2.3 RATIO; PROTHROMBIN TIME - PATIENT 26.7 SEC (9.8-11.6)
[2016-11-09 01:10] LABS: ANION GAP 8 MEQ/L (5-15); BICARBONATE 30.6 MEQ/L (21.0-32.0); BLOOD UREA NITROGEN 14 MG/DL (7-18)
[2016-11-09 01:13] LABS: ALT (GPT) 145 U/L (12-78); AST (GOT) 43 U/L (15-37); GLOMERULAR FILTRATION RATE 106 ML/MIN (>89)
[2016-11-09 01:14] LABS: TOTAL BILIRUBIN ADULT 0.2 MG/DL (0.2-1.0)
[2016-11-09 01:16] LABS: ALKALINE PHOSPHATASE 119 U/L (45-117)
[2016-11-09 01:31] LABS: HEMO FLAGS AUTO DIFF
[2016-11-09 03:15] LABS: OVALOCYTES 1+ (NORMAL)
[2016-11-09 03:16] LABS: PLATELET ESTIMATE SMEAR NORMAL (NORMAL); PLATELET MORPHOLOGY NORMAL (NORMAL); SCAN/DIFF AUTO DIFF CONFIRMED
[2016-11-09] MEDS: SUCRALFATE 1 GM TAB PO SCH ×3 (06:18→16:45)
[2016-11-09] MEDS: INSULIN ASPART SUPPLEMENTAL SCALE SQ SCH ×4 (06:18→21:03)
[2016-11-09] MEDS: oxyCODONE HCL 20 MG CONTROLLED RELEASE TAB PO SCH ×2 (06:18→17:51)
[2016-11-09] MEDS: RESP: ALBUTEROL 2.5 MG/IPRATROPIUM 0.5 MG NEB (SCH) NEB ×4 (07:59→20:12)
[2016-11-09 08:00] VITALS: BP 145/103; PULSE 112; RESP 18; TEMP 98.1; O2SAT 96
[2016-11-09 08:02] VITALS: O2SAT 98
[2016-11-09] MEDS: BUDESONIDE-FORMOTEROL 160/4.5 MCG INHALER INH SCH ×2 (08:21→21:01)
[2016-11-09] MEDS: predniSONE 10 MG TAB PO SCH ×2 (08:22→20:59)
[2016-11-09] MEDS: POTASSIUM CHLORIDE 10 MEQ CONTROLLED RELEASE TAB PO SCH ×2 (08:22→21:00)
[2016-11-09] MEDS: LORazepam 0.5 MG TAB PO SCH ×2 (08:22→21:00)
[2016-11-09] MEDS: FUROSEMIDE 40 MG TAB PO SCH ×2 (08:22→17:51)
[2016-11-09] MEDS: FLUCONAZOLE 200 MG TAB PO SCH (08:22)
[2016-11-09] MEDS: DILTIAZEM-CD 180 MG CAP ER PO SCH (08:22)
[2016-11-09] MEDS: PANTOPRAZOLE SOD 40 MG DELAYED RELEASE TAB PO SCH (08:23)
[2016-11-09] MEDS: ACETAMINOPHEN/HYDROcodone 325 MG/7.5 MG TAB PO PRN ×2 (08:24→16:45)
--- NOTE | 2016-11-09 08:54 | HHI.PR ---
Subjective History of Present Illness Patient have sever wheezing not able to walk because of SOB/ Wheezing.. . Right hip pain better. Patient have rectal bleeding hold coumadin INR 2.3 ... monitor INR. high LFTs monitoring Low Potassium will replace and monitor. check magnesium level. d/w SHAZIA Quiroga. Review of Systems Constitutional Constitutional: Fatigue, Weakness Pulmonary Respiratory: Shortness of Breath, Wheezing GI/Abdomen GI/Abdomen Remarks rectal bleeding. Musculoskeletal MS Remarks Right Hip pain/ swelling. Integumentary Skin Remarks right hip bruise. Vitals/Results Intake & Output 11/08/16 11/08/16 11/09/16 15:00 23:00 07:00 Output Total 300 ml 200 ml Balance -300 ml -200 ml Output Urine Total 300 ml 200 ml Vital Signs Vital Signs Date Time Temp Pulse Resp B/P Pulse Ox O2 Delivery O2 Flow Rate FiO2 11/09/16 08:02 98 Nasal Cannula 2.00 11/09/16 08:00 98.1 112 18 145/103 96 11/08/16 20:15 92 Nasal Cannula 2.00 11/08/16 20:02 97.8 110 22 144/102 98 11/08/16 17:00 96.8 110 20 130/99 99 11/08/16 12:26 97.9 89 18 120/89 100 CBC/BMP: 11/09/16 0042 11/09/16 0042 Lab Results Laboratory Tests Test 11/09/16 00:42 White Blood Count 7.5 TH/MM3 Red Blood Count 3.59 MIL/MM3 Hemoglobin 8.6 GM/DL Hematocrit 26.9 % Mean Corpuscular Volume 74.9 FL Mean Corpuscular Hemoglobin 24.0 PG Mean Corpuscular Hemoglobin 32.0 % Concent Red Cell Distribution Width 21.9 % Platelet Count 351 TH/MM3 Mean Platelet Volume 6.6 FL Neutrophils (%) (Auto) 76.6 % Lymphocytes (%) (Auto) 13.2 % Monocytes (%) (Auto) 6.9 % Eosinophils (%) (Auto) 0.3 % Basophils (%) (Auto) 3.0 % Neutrophils # (Auto) 5.8 TH/MM3 Lymphocytes # (Auto) 1.0 TH/MM3 Monocytes # (Auto) 0.5 TH/MM3 Eosinophils # (Auto) 0.0 TH/MM3 Basophils # (Auto) 0.2 TH/MM3 CBC Comment AUTO DIFF Differential Comment AUTO DIFF CONFIRMED Platelet Estimate NORMAL Platelet Morphology Comment NORMAL Ovalocytes 1+ Prothrombin Time 26.7 SEC Prothromb Time International 2.3 RATIO Ratio Sodium Level 139 MEQ/L Potassium Level 3.2 MEQ/L Chloride Level 100 MEQ/L Carbon Dioxide Level 30.6 MEQ/L Anion Gap 8 MEQ/L Blood Urea Nitrogen 14 MG/DL Creatinine 0.77 MG/DL Estimat Glomerular Filtration 106 ML/MIN Rate Random Glucose 212 MG/DL Calcium Level 8.1 MG/DL Total Bilirubin 0.2 MG/DL Aspartate Amino Transf 43 U/L (AST/SGOT) Alanine Aminotransferase 145 U/L (ALT/SGPT) Alkaline Phosphatase 119 U/L Total Protein 5.8 GM/DL Albumin 3.1 GM/DL Physical Exam General General Appearance: Well Developed, No Acute Distress, Comfortable Eyes Eye Exam: Pupils Equal, Pupils Reactive, Sclera White, Extraocular Movement Intact Throat Throat Exam: Oral Mucosa [place] & Moist Neck Neck Exam: Neck Supple, Trachea Midline Pulmonary Resp Exam: Diminished Breath Sounds Resp Remarks Sever Bilateral Wheezing. Cardiology CV Exam: Regular, Normal Sinus Rhythm Gastrointestinal/Abdomen GI Exam: Soft, Non-Tender, Bowel Sounds Present, Non-Distended Musculoskeletal MS Exam: Normal Tone Integumentary Skin Exam: Warm, Dry Extremeties Extremities Exam: No Edema Neurologic Neuro Exam: Alert, Awake, Oriented, Speech Clear, Moving All Extremities, Foreign Law Consultant Equal, No Focal Deficits Psychiatric Psych Exam: Appropriate Responses VTE Prophylaxis VTE Prophylaxis Meds: Coumadin PUD Prophylasis PUD Prophylaxis: Protonix Assessment/Plan Assessment/Plan ASSESSMENT AND PLAN: 1. Asthma exacerbation-continue oxygen, PO Prednisone, appreciate pulm input, Xopenex and Atrovent Apply humidifier to oxygen 2. History for right hip infection with fungus. The patient is on Diflucan + Micafungin.. He has right hip swelling and pain. Right hip ultrasound noted orthopedic input noted s/p needle drainage of hematoma right hip, per orthopedic not getting right hip hardware removed. S/P MRI Right hip shows 12 cm hematoma/seroma. s/p needle drainage... S/P CT Pelvis show no more hematoma collection 3. Septic right hip. The patient is on Diflucan + Micafungin... Infectious disease input noted.. Will monitor. 4. History of chronic obstructive pulmonary disease. Continue home medications. 5. History of depression. Continue home medications. 6. History of anxiety. Continue with Ativan 0.5 milligrams twice a day. 7. Right hip pain. The patient on tramadol and [place] and also Dilaudid 0.5 milligrams p.o. q. 6 hours PRN pain. 8. History of hyperlipidemia. Continue on Lipitor 20 milligrams p.o. daily. 9. History of pulmonary embolism and DVT right leg. INR 2.3 holding coumadin 2 mg PO Daily because of rectal bleeding . Will monitor INR daily. 10. High blood sugar continue with ISS + Levemir 20 units subcut. HS. monitoring blood glucose 11. Leg edema on Lasix 40 mg PO BID 12. Hypokalemia..will replace and monitor...check magnesium level. 13. Rectal Bleeding holding coumadin. DVT prophylaxis. . off coumadin. monitoring INR. GI prophylaxis. Protonix 40 milligrams p.o. daily/ Carafate 1 gram p.o. three times a day. DC plan in progress, IV Abx being arranged for OP . Discussed Condition with: Patient Myron Woodward MD Nov 09, 2016 08:54
[2016-11-09] MEDS ORDERED: POTASSIUM CHLORIDE 10 MEQ CONTROLLED RELEASE TAB PO ONE (09:00)
[2016-11-09] MEDS: PROMETHAZINE/CODEINE 6.25 MG/10 MG/5 ML CUP PO PRN (13:48)
[2016-11-09] MEDS: traMADol HCL 50 MG TAB PO PRN (13:49)
[2016-11-09] MEDS: MICAFUNGIN INJ 150 MG in SODIUM CHLORIDE 0.9% INJ 100 ML IV SCH (16:49)
[2016-11-09 20:00] VITALS: BP 136/94; PULSE 98; RESP 22; TEMP 96.7; O2SAT 99
[2016-11-09 20:10] VITALS: O2SAT 96
[2016-11-09] MEDS: MONTELUKAST SODIUM 10 MG TAB PO SCH (21:00)
[2016-11-09] MEDS: INSULIN DETEMIR 100 UNITS/ML VIAL SQ SCH (21:02)
[2016-11-09] MEDS: ATORVASTATIN 20 MG TAB PO SCH (21:19)
[2016-11-10] MEDS: ACETAMINOPHEN/HYDROcodone 325 MG/7.5 MG TAB PO PRN ×2 (00:42→20:41)
[2016-11-10 05:29] LABS: CHLORIDE 100 MEQ/L (98-107); POTASSIUM 3.6 MEQ/L (3.5-5.1); SODIUM (NA) 140 MEQ/L (136-145)
[2016-11-10 05:31] LABS: AUTOMATED NEUTROPHIL # 5.3 TH/MM3 (1.8-7.7); BASOPHIL % 0.4 % (0.0-2.0); EOSINOPHIL # 0.1 TH/MM3 (0-0.4); EOSINOPHIL % 0.8 % (0.0-4.0); LYMPH % 13.3 % (9.0-44.0); LYMPHOCYTE # 0.9 TH/MM3 (1.0-4.8); MEAN CELL VOLUME 73.6 FL (80.0-100.0); MEAN CORPUSCULAR HEMOGLOBIN 23.1 PG (27.0-34.0); MEAN CORPUSCULAR HGB CONC 31.3 % (32.0-36.0); NEUT % 78.5 % (16.0-70.0); PLATELET COUNT 397 TH/MM3 (150-450); RED BLOOD COUNT 3.94 MIL/MM3 (4.50-5.90); RED CELL DISTRIBUTION WIDTH 21.5 % (11.6-17.2); WHITE BLOOD COUNT 6.8 TH/MM3 (4.0-11.0)
[2016-11-10 05:33] LABS: ANION GAP 8 MEQ/L (5-15); BICARBONATE 31.6 MEQ/L (21.0-32.0); BLOOD UREA NITROGEN 11 MG/DL (7-18); INTERNATIONAL NORMALIZED RATIO 2.5 RATIO; PROTHROMBIN TIME - PATIENT 28.2 SEC (9.8-11.6)
[2016-11-10 05:34] LABS: HEMO FLAGS AUTO DIFF
[2016-11-10 05:36] LABS: ALT (GPT) 174 U/L (12-78); AST (GOT) 54 U/L (15-37); GLOMERULAR FILTRATION RATE 125 ML/MIN (>89)
[2016-11-10 05:38] LABS: TOTAL BILIRUBIN ADULT 0.3 MG/DL (0.2-1.0)
[2016-11-10 05:39] LABS: ALKALINE PHOSPHATASE 118 U/L (45-117)
[2016-11-10] MEDS: SUCRALFATE 1 GM TAB PO SCH ×3 (06:22→17:13)
[2016-11-10] MEDS: oxyCODONE HCL 20 MG CONTROLLED RELEASE TAB PO SCH ×4 (06:23→19:01)
[2016-11-10] MEDS: RESP: ALBUTEROL 2.5 MG/IPRATROPIUM 0.5 MG NEB (SCH) NEB ×4 (06:30→19:11)
[2016-11-10 06:31] LABS: OVALOCYTES 1+ (NORMAL); PLATELET ESTIMATE SMEAR NORMAL (NORMAL); PLATELET MORPHOLOGY NORMAL (NORMAL); SCAN/DIFF AUTO DIFF CONFIRMED
[2016-11-10] MEDS: INSULIN ASPART SUPPLEMENTAL SCALE SQ SCH ×4 (06:31→20:50)
[2016-11-10 08:00] VITALS: BP 143/97; PULSE 100; RESP 21; TEMP 97.4; O2SAT 95
[2016-11-10] MEDS: BUDESONIDE-FORMOTEROL 160/4.5 MCG INHALER INH SCH ×2 (08:55→21:29)
[2016-11-10] MEDS: LORazepam 0.5 MG TAB PO SCH ×2 (08:55→20:41)
[2016-11-10] MEDS: DILTIAZEM-CD 180 MG CAP ER PO SCH (08:57)
[2016-11-10] MEDS: FLUCONAZOLE 200 MG TAB PO SCH (08:57)
[2016-11-10] MEDS: FUROSEMIDE 40 MG TAB PO SCH ×2 (08:57→17:10)
[2016-11-10] MEDS: PANTOPRAZOLE SOD 40 MG DELAYED RELEASE TAB PO SCH (08:57)
[2016-11-10] MEDS: POTASSIUM CHLORIDE 10 MEQ CONTROLLED RELEASE TAB PO SCH ×2 (08:58→20:40)
[2016-11-10] MEDS: predniSONE 10 MG TAB PO SCH ×2 (08:58→20:40)
[2016-11-10 11:34] VITALS: O2SAT 97
--- NOTE | 2016-11-10 11:35 | HHI.PR ---
Subjective History of Present Illness Patient have sever wheezing not able to walk because of SOB/ Wheezing. Right hip pain better. Patient have rectal bleeding hold coumadin INR 2.3 ... monitor INR. high LFTs monitoring Low Potassium resolved.. checked magnesium 1.7 level. d/w SHAZIA Loya. Review of Systems Constitutional Constitutional: Fatigue, Weakness Pulmonary Respiratory: Shortness of Breath, Wheezing GI/Abdomen GI/Abdomen Remarks rectal bleeding. Musculoskeletal MS Remarks Right Hip pain/ swelling. Integumentary Skin Remarks right hip bruise. Vitals/Results Intake & Output 11/09/16 11/09/16 11/10/16 15:00 23:00 07:00 Intake Total 220 ml 240 ml Output Total 750 ml Balance 220 ml -510 ml Intake Oral 220 ml 240 ml Output Urine Total 750 ml # Voids 3 2 # Bowel Movements 2 1 0 Vital Signs Vital Signs Date Time Temp Pulse Resp B/P Pulse Ox O2 Delivery O2 Flow Rate FiO2 11/10/16 08:00 97.4 100 21 143/97 95 11/10/16 01:42 16 11/09/16 20:10 96 Nasal Cannula 2.00 11/09/16 20:00 96.7 98 22 136/94 99 CBC/BMP: 11/10/16 0525 11/10/16 0505 Lab Results Laboratory Tests Test 11/10/16 11/10/16 05:05 05:25 Prothrombin Time 28.2 SEC Prothromb Time International 2.5 RATIO Ratio Sodium Level 140 MEQ/L Potassium Level 3.6 MEQ/L Chloride Level 100 MEQ/L Carbon Dioxide Level 31.6 MEQ/L Anion Gap 8 MEQ/L Blood Urea Nitrogen 11 MG/DL Creatinine 0.67 MG/DL Estimat Glomerular Filtration 125 ML/MIN Rate Random Glucose 134 MG/DL Calcium Level 8.8 MG/DL Total Bilirubin 0.3 MG/DL Aspartate Amino Transf 54 U/L (AST/SGOT) Alanine Aminotransferase 174 U/L (ALT/SGPT) Alkaline Phosphatase 118 U/L Total Protein 6.1 GM/DL Albumin 3.3 GM/DL White Blood Count 6.8 TH/MM3 Red Blood Count 3.94 MIL/MM3 Hemoglobin 9.1 GM/DL Hematocrit 29.0 % Mean Corpuscular Volume 73.6 FL Mean Corpuscular Hemoglobin 23.1 PG Mean Corpuscular Hemoglobin 31.3 % Concent Red Cell Distribution Width 21.5 % Platelet Count 397 TH/MM3 Mean Platelet Volume 6.0 FL Neutrophils (%) (Auto) 78.5 % Lymphocytes (%) (Auto) 13.3 % Monocytes (%) (Auto) 7.0 % Eosinophils (%) (Auto) 0.8 % Basophils (%) (Auto) 0.4 % Neutrophils # (Auto) 5.3 TH/MM3 Lymphocytes # (Auto) 0.9 TH/MM3 Monocytes # (Auto) 0.5 TH/MM3 Eosinophils # (Auto) 0.1 TH/MM3 Basophils # (Auto) 0.0 TH/MM3 CBC Comment AUTO DIFF Differential Comment AUTO DIFF CONFIRMED Platelet Estimate NORMAL Platelet Morphology Comment NORMAL Ovalocytes 1+ Physical Exam General General Appearance: Well Developed, No Acute Distress, Comfortable Eyes Eye Exam: Pupils Equal, Pupils Reactive, Sclera White, Extraocular Movement Intact Throat Throat Exam: Oral Mucosa [place] & Moist Neck Neck Exam: Neck Supple, Trachea Midline Pulmonary Resp Exam: Diminished Breath Sounds Resp Remarks Sever Bilateral Wheezing. Cardiology CV Exam: Regular, Normal Sinus Rhythm Gastrointestinal/Abdomen GI Exam: Soft, Non-Tender, Bowel Sounds Present, Non-Distended Musculoskeletal MS Exam: Normal Tone Integumentary Skin Exam: Warm, Dry Extremeties Extremities Exam: No Edema Neurologic Neuro Exam: Alert, Awake, Oriented, Speech Clear, Moving All Extremities, Land Reclamation Specialist Equal, No Focal Deficits Psychiatric Psych Exam: Appropriate Responses VTE Prophylaxis VTE Prophylaxis Meds: Coumadin PUD Prophylasis PUD Prophylaxis: Protonix Assessment/Plan Assessment/Plan ASSESSMENT AND PLAN: 1. Asthma exacerbation-continue oxygen, PO Prednisone, appreciate pulm input, Xopenex and Atrovent Apply humidifier to oxygen 2. History for right hip infection with fungus. The patient is on Diflucan + Micafungin.. He has right hip swelling and pain. Right hip ultrasound noted orthopedic input noted s/p needle drainage of hematoma right hip, per orthopedic not getting right hip hardware removed. S/P MRI Right hip shows 12 cm hematoma/seroma. s/p needle drainage... S/P CT Pelvis show no more hematoma collection 3. Septic right hip. The patient is on Diflucan + Micafungin... Infectious disease input noted.. Will monitor. 4. History of chronic obstructive pulmonary disease. Continue home medications. 5. History of depression. Continue home medications. 6. History of anxiety. Continue with Ativan 0.5 milligrams twice a day. 7. Right hip pain. The patient on tramadol and [place] and also Dilaudid 0.5 milligrams p.o. q. 6 hours PRN pain. 8. History of hyperlipidemia. Continue on Lipitor 20 milligrams p.o. daily. 9. History of pulmonary embolism and DVT right leg. INR 2.5 holding coumadin 2 mg PO Daily because of rectal bleeding . Will monitor INR daily. 10. High blood sugar continue with ISS + Levemir 20 units subcut. HS. monitoring blood glucose 11. Leg edema on Lasix 40 mg PO BID 12. Hypokalemia..resolved.....checked magnesium level...1.7 13. Rectal Bleeding holding coumadin. DVT prophylaxis. . off coumadin. monitoring INR. GI prophylaxis. Protonix 40 milligrams p.o. daily/ Carafate 1 gram p.o. three times a day. Check walk test, check CBC with diff CMP in AM. DC plan in progress, IV Abx being arranged for OP . Discussed Condition with: Patient Myron Woodward MD Nov 10, 2016 11:35
[2016-11-10] MEDS: MICAFUNGIN INJ 150 MG in SODIUM CHLORIDE 0.9% INJ 100 ML IV SCH (17:10)
[2016-11-10 19:10] VITALS: O2SAT 96
[2016-11-10] MEDS: ONDANSETRON HCL 4 MG/2 ML VIAL IV PUSH PRN (19:45)
[2016-11-10 20:00] VITALS: BP 155/95; PULSE 105; RESP 20; TEMP 95.7; O2SAT 98
[2016-11-10] MEDS: MONTELUKAST SODIUM 10 MG TAB PO SCH (20:40)
[2016-11-10] MEDS: ATORVASTATIN 20 MG TAB PO SCH (20:41)
[2016-11-10] MEDS: INSULIN DETEMIR 100 UNITS/ML VIAL SQ SCH (20:42)
[2016-11-11] MEDS: oxyCODONE HCL 20 MG CONTROLLED RELEASE TAB PO SCH ×2 (06:02→17:25)
[2016-11-11] MEDS: INSULIN ASPART SUPPLEMENTAL SCALE SQ SCH ×4 (06:18→21:00)
[2016-11-11] MEDS: SUCRALFATE 1 GM TAB PO SCH ×3 (06:51→17:25)
[2016-11-11 07:19] LABS: AUTOMATED NEUTROPHIL # 4.7 TH/MM3 (1.8-7.7); BASOPHIL % 0.5 % (0.0-2.0); EOSINOPHIL % 0.7 % (0.0-4.0); HEMATOCRIT 28.4 % (39.0-51.0); MEAN CELL VOLUME 75.3 FL (80.0-100.0); MEAN CORPUSCULAR HEMOGLOBIN 23.5 PG (27.0-34.0); MEAN CORPUSCULAR HGB CONC 31.2 % (32.0-36.0); MONO % 7.5 % (0.0-8.0); NEUT % 75.3 % (16.0-70.0); PLATELET COUNT 387 TH/MM3 (150-450); RED BLOOD COUNT 3.78 MIL/MM3 (4.50-5.90); RED CELL DISTRIBUTION WIDTH 21.9 % (11.6-17.2); WHITE BLOOD COUNT 6.2 TH/MM3 (4.0-11.0)
[2016-11-11 07:21] LABS: HEMO FLAGS DIFF FINAL
[2016-11-11] MEDS: RESP: ALBUTEROL 2.5 MG/IPRATROPIUM 0.5 MG NEB (SCH) NEB ×4 (07:32→18:53)
[2016-11-11 07:34] VITALS: O2SAT 97
[2016-11-11 07:34] LABS: CHLORIDE 100 MEQ/L (98-107); POTASSIUM 3.4 MEQ/L (3.5-5.1); SODIUM (NA) 140 MEQ/L (136-145)
[2016-11-11 07:38] LABS: ANION GAP 7 MEQ/L (5-15); BICARBONATE 32.8 MEQ/L (21.0-32.0); BLOOD UREA NITROGEN 13 MG/DL (7-18)
[2016-11-11 07:41] LABS: ALT (GPT) 167 U/L (12-78); AST (GOT) 43 U/L (15-37); GLOMERULAR FILTRATION RATE 105 ML/MIN (>89)
[2016-11-11 07:44] LABS: ALKALINE PHOSPHATASE 118 U/L (45-117)
[2016-11-11 07:47] LABS: TOTAL BILIRUBIN ADULT 0.2 MG/DL (0.2-1.0)
[2016-11-11 08:00] VITALS: BP 157/101; PULSE 106; RESP 16; TEMP 97.3; O2SAT 98
--- NOTE | 2016-11-11 08:21 | HHI.PR ---
Subjective History of Present Illness Patient have sever wheezing not able to walk because of SOB/ Wheezing. Right hip pain better. Patient have rectal bleeding holding coumadin INR 2.0 ... monitoring INR. high LFTs monitoring Review of Systems Constitutional Constitutional: Fatigue, Weakness Pulmonary Respiratory: Shortness of Breath, Wheezing GI/Abdomen GI/Abdomen Remarks rectal bleeding. Musculoskeletal MS Remarks Right Hip pain/ swelling. Integumentary Skin Remarks right hip bruise. Vitals/Results Intake & Output 11/10/16 11/10/16 11/11/16 15:00 23:00 07:00 Intake Total 1640 ml 480 ml Output Total 2725 ml 675 ml Balance -1085 ml -195 ml Intake Oral 1640 ml 480 ml Output Urine Total 2725 ml 675 ml # Bowel Movements 0 0 Vital Signs Vital Signs Date Time Temp Pulse Resp B/P Pulse Ox O2 Delivery O2 Flow Rate FiO2 11/11/16 07:34 97 21 11/11/16 07:02 20 11/10/16 21:41 16 11/10/16 20:00 95.7 105 20 155/95 98 11/10/16 19:10 96 21 11/10/16 11:34 97 21 CBC/BMP: 11/11/16 0650 11/11/16 0650 Lab Results Laboratory Tests Test 11/11/16 06:50 White Blood Count 6.2 TH/MM3 Red Blood Count 3.78 MIL/MM3 Hemoglobin 8.9 GM/DL Hematocrit 28.4 % Mean Corpuscular Volume 75.3 FL Mean Corpuscular Hemoglobin 23.5 PG Mean Corpuscular Hemoglobin 31.2 % Concent Red Cell Distribution Width 21.9 % Platelet Count 387 TH/MM3 Mean Platelet Volume 6.5 FL Neutrophils (%) (Auto) 75.3 % Lymphocytes (%) (Auto) 16.0 % Monocytes (%) (Auto) 7.5 % Eosinophils (%) (Auto) 0.7 % Basophils (%) (Auto) 0.5 % Neutrophils # (Auto) 4.7 TH/MM3 Lymphocytes # (Auto) 1.0 TH/MM3 Monocytes # (Auto) 0.5 TH/MM3 Eosinophils # (Auto) 0.0 TH/MM3 Basophils # (Auto) 0.0 TH/MM3 CBC Comment DIFF FINAL Differential Comment Prothrombin Time 23.0 SEC Prothromb Time International 2.0 RATIO Ratio Sodium Level 140 MEQ/L Potassium Level 3.4 MEQ/L Chloride Level 100 MEQ/L Carbon Dioxide Level 32.8 MEQ/L Anion Gap 7 MEQ/L Blood Urea Nitrogen 13 MG/DL Creatinine 0.78 MG/DL Estimat Glomerular Filtration 105 ML/MIN Rate Random Glucose 126 MG/DL Calcium Level 8.7 MG/DL Total Bilirubin 0.2 MG/DL Aspartate Amino Transf 43 U/L (AST/SGOT) Alanine Aminotransferase 167 U/L (ALT/SGPT) Alkaline Phosphatase 118 U/L Total Protein 5.9 GM/DL Albumin 3.2 GM/DL Physical Exam General General Appearance: Well Developed, No Acute Distress, Comfortable Eyes Eye Exam: Pupils Equal, Pupils Reactive, Sclera White, Extraocular Movement Intact Throat Throat Exam: Oral Mucosa [place] & Moist Neck Neck Exam: Neck Supple, Trachea Midline Pulmonary Resp Exam: Diminished Breath Sounds Resp Remarks Sever Bilateral Wheezing. Cardiology CV Exam: Regular, Normal Sinus Rhythm Gastrointestinal/Abdomen GI Exam: Soft, Non-Tender, Bowel Sounds Present, Non-Distended Musculoskeletal MS Exam: Normal Tone Integumentary Skin Exam: Warm, Dry Extremeties Extremities Exam: No Edema Neurologic Neuro Exam: Alert, Awake, Oriented, Speech Clear, Moving All Extremities, Body Painter Equal, No Focal Deficits Psychiatric Psych Exam: Appropriate Responses VTE Prophylaxis VTE Prophylaxis Meds: Coumadin PUD Prophylasis PUD Prophylaxis: Protonix Assessment/Plan Assessment/Plan ASSESSMENT AND PLAN: 1. Asthma exacerbation-continue oxygen, PO Prednisone, appreciate pulm input, Xopenex and Atrovent Apply humidifier to oxygen 2. History for right hip infection with fungus. The patient is on Diflucan + Micafungin.. He has right hip swelling and pain. Right hip ultrasound noted orthopedic input noted s/p needle drainage of hematoma right hip, per orthopedic not getting right hip hardware removed. S/P MRI Right hip shows 12 cm hematoma/seroma. s/p needle drainage... S/P CT Pelvis show no more hematoma collection 3. Septic right hip. The patient is on Diflucan + Micafungin... Infectious disease input noted.. Will monitor. 4. History of chronic obstructive pulmonary disease. Continue home medications. 5. History of depression. Continue home medications. 6. History of anxiety. Continue with Ativan 0.5 milligrams twice a day. 7. Right hip pain. The patient on tramadol and [place] and also Dilaudid 0.5 milligrams p.o. q. 6 hours PRN pain. 8. History of hyperlipidemia. Continue on Lipitor 20 milligrams p.o. daily. 9. History of pulmonary embolism and DVT right leg. INR 2.0 holding coumadin 2 mg PO Daily because of rectal bleeding . Will monitor INR daily. 10. High blood sugar continue with ISS + Levemir 20 units subcut. HS. monitoring blood glucose 11. Leg edema on Lasix 40 mg PO BID 12. Hypokalemia..resolved.....checked magnesium level was...1.7 13. Rectal Bleeding holding coumadin. DVT prophylaxis. . off coumadin. monitoring INR. GI prophylaxis. Protonix 40 milligrams p.o. daily/ Carafate 1 gram p.o. three times a day. Check walk test, check CBC with diff CMP in AM. DC plan possible tomorrow, IV Abx being arranged for OP . Discussed Condition with: Patient Myron Woodward MD Nov 11, 2016 08:20
[2016-11-11] MEDS: DILTIAZEM-CD 180 MG CAP ER PO SCH (09:40)
[2016-11-11] MEDS: FUROSEMIDE 40 MG TAB PO SCH ×2 (09:41→17:26)
[2016-11-11] MEDS: PANTOPRAZOLE SOD 40 MG DELAYED RELEASE TAB PO SCH (09:41)
[2016-11-11] MEDS: FLUCONAZOLE 200 MG TAB PO SCH (09:41)
[2016-11-11] MEDS: POTASSIUM CHLORIDE 10 MEQ CONTROLLED RELEASE TAB PO SCH ×2 (09:41→21:48)
[2016-11-11] MEDS: LORazepam 0.5 MG TAB PO SCH ×2 (09:41→21:46)
[2016-11-11] MEDS: predniSONE 10 MG TAB PO SCH ×2 (09:41→21:48)
[2016-11-11] MEDS: BUDESONIDE-FORMOTEROL 160/4.5 MCG INHALER INH SCH ×2 (11:00→21:46)
[2016-11-11] MEDS: MICAFUNGIN INJ 150 MG in SODIUM CHLORIDE 0.9% INJ 100 ML IV SCH (17:25)
[2016-11-11 18:55] VITALS: O2SAT 98
--- NOTE | 2016-11-11 19:50 | RADHPO ---
EXAM DATE/TIME: 11/11/2016 19:32 [facility] COMPARISON: CT PELVIS W CONTRAST, October 07, 2016, 16:45. INDICATIONS : Patient state right hip pain. States fungal infection in right hip. MEDICAL HISTORY : Asthma SURGICAL HISTORY : Right total hip ENCOUNTER: Subsequent ACUITY: 3 months PAIN SCORE: 8/10 LOCATION: Right hip FINDINGS: There is a bipolar right hip arthroplasty appears intact. No evidence of loosening. No perceptible rossy ne destruction although there is mild resorption around the acetabular component that appear similar to the prior CT. CONCLUSION: No acute radiographic abnormality right bipolar hip arthroplasty. Adin Kendall MD on November 11, 2016 at 19:47 Board Certified Radiologist. This report was verified electronically.
[2016-11-11 20:00] VITALS: BP 119/91; PULSE 121; RESP 18; TEMP 96.9; O2SAT 98
[2016-11-11] MEDS: ONDANSETRON HCL 4 MG/2 ML VIAL IV PUSH PRN (21:42)
[2016-11-11] MEDS: SODIUM CHLORIDE 0.9% FLUSH 5 ML FLUSH IVF PRN (21:43)
[2016-11-11] MEDS: MONTELUKAST SODIUM 10 MG TAB PO SCH (21:47)
[2016-11-11] MEDS: ATORVASTATIN 20 MG TAB PO SCH (21:48)
[2016-11-11] MEDS: INSULIN DETEMIR 100 UNITS/ML VIAL SQ SCH (21:49)
[2016-11-11] MEDS: ACETAMINOPHEN/HYDROcodone 325 MG/7.5 MG TAB PO PRN (21:54)
[2016-11-12] MEDS: SUCRALFATE 1 GM TAB PO SCH ×3 (05:51→16:53)
[2016-11-12] MEDS: oxyCODONE HCL 20 MG CONTROLLED RELEASE TAB PO SCH ×2 (05:51→16:54)
[2016-11-12] MEDS: INSULIN ASPART SUPPLEMENTAL SCALE SQ SCH ×4 (05:57→20:25)
[2016-11-12 06:59] LABS: BASOPHIL % 0.4 % (0.0-2.0); EOSINOPHIL % 0.6 % (0.0-4.0); HEMATOCRIT 29.1 % (39.0-51.0); LYMPH % 12.2 % (9.0-44.0); LYMPHOCYTE # 0.8 TH/MM3 (1.0-4.8); MEAN CELL VOLUME 74.1 FL (80.0-100.0); MONO % 7.2 % (0.0-8.0); NEUT % 79.6 % (16.0-70.0); PLATELET COUNT 426 TH/MM3 (150-450); RED BLOOD COUNT 3.93 MIL/MM3 (4.50-5.90); WHITE BLOOD COUNT 6.2 TH/MM3 (4.0-11.0)
[2016-11-12 07:01] LABS: CHLORIDE 100 MEQ/L (98-107); POTASSIUM 3.5 MEQ/L (3.5-5.1); SODIUM (NA) 139 MEQ/L (136-145)
[2016-11-12 07:02] LABS: HEMO FLAGS AUTO DIFF
[2016-11-12 07:03] LABS: INTERNATIONAL NORMALIZED RATIO 1.5 RATIO; PROTHROMBIN TIME - PATIENT 17.2 SEC (9.8-11.6)
[2016-11-12] MEDS: RESP: ALBUTEROL 2.5 MG/IPRATROPIUM 0.5 MG NEB (SCH) NEB ×3 (07:13→15:22)
[2016-11-12 07:14] VITALS: O2SAT 98
[2016-11-12 07:55] LABS: SCAN/DIFF AUTO DIFF CONFIRMED
[2016-11-12 08:00] VITALS: BP 143/100; PULSE 109; RESP 18; TEMP 97.7; O2SAT 99
--- NOTE | 2016-11-12 08:00 | HHI.PR ---
Subjective History of Present Illness Patient have sever wheezing not able to walk because of SOB/ Wheezing. have rectal bleeding and abdominal pain consult GI..holding coumadin INR 2.0 monitoring INR Right hip pain better. . high LFTs monitoring Review of Systems Constitutional Constitutional: Fatigue, Weakness Pulmonary Respiratory: Shortness of Breath, Wheezing GI/Abdomen GI/Abdomen Remarks rectal bleeding. Musculoskeletal MS Remarks Right Hip pain/ swelling. Integumentary Skin Remarks right hip bruise. Vitals/Results Intake & Output 11/11/16 11/11/16 11/12/16 15:00 23:00 07:00 Intake Total 960 ml 500 ml 380 ml Output Total 1250 ml 400 ml 250 ml Balance -290 ml 100 ml 130 ml Intake Oral 960 ml 400 ml 380 ml IV Total 100 ml Output Urine Total 1250 ml 400 ml 250 ml # Voids 2 # Bowel Movements 2 0 0 Vital Signs Vital Signs Date Time Temp Pulse Resp B/P Pulse Ox O2 Delivery O2 Flow Rate FiO2 11/12/16 07:14 98 21 11/11/16 20:00 96.9 121 18 119/91 98 11/11/16 18:55 98 21 11/11/16 18:25 18 11/11/16 08:00 97.3 106 16 157/101 98 CBC/BMP: 11/12/16 0630 11/12/16 0630 Lab Results Laboratory Tests Test 11/12/16 06:30 White Blood Count 6.2 TH/MM3 Red Blood Count 3.93 MIL/MM3 Hemoglobin 9.0 GM/DL Hematocrit 29.1 % Mean Corpuscular Volume 74.1 FL Mean Corpuscular Hemoglobin 23.0 PG Mean Corpuscular Hemoglobin 31.0 % Concent Red Cell Distribution Width 22.0 % Platelet Count 426 TH/MM3 Mean Platelet Volume 6.3 FL Neutrophils (%) (Auto) 79.6 % Lymphocytes (%) (Auto) 12.2 % Monocytes (%) (Auto) 7.2 % Eosinophils (%) (Auto) 0.6 % Basophils (%) (Auto) 0.4 % Neutrophils # (Auto) 5.0 TH/MM3 Lymphocytes # (Auto) 0.8 TH/MM3 Monocytes # (Auto) 0.4 TH/MM3 Eosinophils # (Auto) 0.0 TH/MM3 Basophils # (Auto) 0.0 TH/MM3 CBC Comment AUTO DIFF Erythrocyte Sedimentation Rate 20 mm/hr Prothrombin Time 17.2 SEC Prothromb Time International 1.5 RATIO Ratio Sodium Level 139 MEQ/L Potassium Level 3.5 MEQ/L Chloride Level 100 MEQ/L Physical Exam General General Appearance: Well Developed, No Acute Distress, Comfortable Eyes Eye Exam: Pupils Equal, Pupils Reactive, Sclera White, Extraocular Movement Intact Throat Throat Exam: Oral Mucosa [place] & Moist Neck Neck Exam: Neck Supple, Trachea Midline Pulmonary Resp Exam: Diminished Breath Sounds Resp Remarks Sever Bilateral Wheezing. Cardiology CV Exam: Regular, Normal Sinus Rhythm Gastrointestinal/Abdomen GI Exam: Soft, Non-Tender, Bowel Sounds Present, Non-Distended Musculoskeletal MS Exam: Normal Tone Integumentary Skin Exam: Warm, Dry Extremeties Extremities Exam: No Edema Neurologic Neuro Exam: Alert, Awake, Oriented, Speech Clear, Moving All Extremities, Mechanical Engineering Specialist Equal, No Focal Deficits Psychiatric Psych Exam: Appropriate Responses VTE Prophylaxis VTE Prophylaxis Meds: Coumadin PUD Prophylasis PUD Prophylaxis: Protonix Assessment/Plan Assessment/Plan ASSESSMENT AND PLAN: 1. Asthma exacerbation-continue oxygen, PO Prednisone, appreciate pulm input, Xopenex and Atrovent Apply humidifier to oxygen check Chest x-ray 2. History for right hip infection with fungus. The patient is on Diflucan + Micafungin.. He has right hip swelling and pain. Right hip ultrasound noted orthopedic input noted s/p needle drainage of hematoma right hip, per orthopedic not getting right hip hardware removed. S/P MRI Right hip shows 12 cm hematoma/seroma. s/p needle drainage... S/P CT Pelvis show no more hematoma collection 3. Septic right hip. The patient is on Diflucan + Micafungin... Infectious disease input noted.. Will monitor. 4. History of chronic obstructive pulmonary disease. Continue home medications. 5. History of depression. Continue home medications. 6. History of anxiety. Continue with Ativan 0.5 milligrams twice a day. 7. Right hip pain. The patient on tramadol and [place] and also Dilaudid 0.5 milligrams p.o. q. 6 hours PRN pain. 8. History of hyperlipidemia. Continue on Lipitor 20 milligrams p.o. daily. 9. History of pulmonary embolism and DVT right leg. INR 2.0 holding coumadin 2 mg PO Daily because of rectal bleeding . Will monitor INR daily. 10. High blood sugar continue with ISS + Levemir 20 units subcut. HS. monitoring blood glucose 11. Leg edema on Lasix 40 mg PO BID 12. Hypokalemia..resolved.....checked magnesium level was...1.7 13. Rectal Bleeding holding coumadin. DVT prophylaxis. . off coumadin. monitoring INR. Rectal bleeding and abdominal pain check CT Abdomen and pelvis without contrast consult GI..holding coumadin INR 1.5 monitoring INR GI prophylaxis. Protonix 40 milligrams p.o. daily/ Carafate 1 gram p.o. three times a day. Check walk test, check CBC with diff CMP in AM. DC plan possible tomorrow, IV Abx being arranged for OP . Discussed Condition with: Patient Myron Woodward MD Nov 12, 2016 08:00
[2016-11-12 08:05] LABS: ALKALINE PHOSPHATASE 119 U/L (45-117); ALT (GPT) 166 U/L (12-78); ANION GAP 7 MEQ/L (5-15); AST (GOT) 38 U/L (15-37); BICARBONATE 31.6 MEQ/L (21.0-32.0); BLOOD UREA NITROGEN 13 MG/DL (7-18); GLOMERULAR FILTRATION RATE 109 ML/MIN (>89); TOTAL BILIRUBIN ADULT 0.3 MG/DL (0.2-1.0)
[2016-11-12] MEDS: PANTOPRAZOLE SOD 40 MG DELAYED RELEASE TAB PO SCH (08:08)
[2016-11-12] MEDS: FLUCONAZOLE 200 MG TAB PO SCH (08:08)
[2016-11-12] MEDS: FUROSEMIDE 40 MG TAB PO SCH ×2 (08:08→16:54)
[2016-11-12] MEDS: predniSONE 10 MG TAB PO SCH ×2 (08:08→20:23)
[2016-11-12] MEDS: DILTIAZEM-CD 180 MG CAP ER PO SCH (08:08)
[2016-11-12] MEDS: POTASSIUM CHLORIDE 10 MEQ CONTROLLED RELEASE TAB PO SCH ×2 (08:08→20:23)
[2016-11-12] MEDS: LORazepam 0.5 MG TAB PO SCH ×2 (08:09→20:23)
[2016-11-12] MEDS: BUDESONIDE-FORMOTEROL 160/4.5 MCG INHALER INH SCH ×2 (08:09→20:23)
--- NOTE | 2016-11-12 09:59 | RADHPO ---
EXAM DATE/TIME: 11/12/2016 08:59 [facility] COMPARISON: No previous studies available for comparison. INDICATIONS : Persistent right abdominal pain for s few days with episodes of rectal bleeding. ORAL CONTRAST: No oral contrast ingested. RADIATION DOSE: 20.05 CTDIvol (mGy) MEDICAL HISTORY : Chronic obstructive pulmonary disease. Deep venous thrombosis. Gastroesophageal reflux disease.Antico agulant therapy. Hypertension. Diabetes. SURGICAL HISTORY : Appendectomy. Orthopedic surgery. ENCOUNTER: Initial ACUITY: 3 days PAIN SCALE: 7/10 LOCATION: Right abdomen TECHNIQUE: Volumetric scanning of the abdomen and pelvis was performed. Using automated exposure control and ad justment of the mA and/or kV according to patient size, radiation dose was kept as low as reasonably achievable to obtain optimal diagnostic quality images. FINDINGS: LOWER LUNGS: The visualized lower lungs are clear. LIVER: Homogeneous density without lesion. There is no dilation of the biliary tree. No calcified gallston es. SPLEEN: Normal size without lesion. PANCREAS: Within normal limits. KIDNEYS: Normal in size and shape. There is no mass, stone, or hydronephrosis. ADRENAL GLANDS: Within normal limits. VASCULAR: There is no aortic aneurysm. BOWEL/MESENTERY: Copious amount of stool throughout the large bowel greater in the right colon. There is an area wall thickening normal and lateral cecum. No inflammatory changes. There is no free intraperitoneal air o r fluid. ABDOMINAL WALL: Within normal limits. RETROPERITONEUM: There is no lymphadenopathy. BLADDER: No wall thickening or mass. REPRODUCTIVE: Within normal limits. INGUINAL: There is no lymphadenopathy or hernia. MUSCULOSKELETAL: Small fluid collection along the soft tissues lateral to the right hip likely from recent surgery. CONCLUSION: 1. Wall thickening along the lateral cecum. Colonoscopy may be warranted. No acute inflammatory proce ss. 2. No renal calculi or hydronephrosis. 3. Copious amount of stool throughout the large bowel. Davion Carranza MD on November 12, 2016 at 9:51 Board Certified Radiologist. This report was verified electronically.
[2016-11-12] MEDS: POLYETHYLENE GLYCOL 17 GM PKG PO PRN ×2 (11:10→16:52)
[2016-11-12] MEDS: ACETAMINOPHEN/HYDROcodone 325 MG/7.5 MG TAB PO PRN (13:35)
--- NOTE | 2016-11-12 13:44 | RADHPO ---
EXAM DATE/TIME: 11/12/2016 12:56 [facility] COMPARISON: CHEST SINGLE AP, September 29, 2016, 11:14. INDICATIONS : Right upper chest pain 3 days. MEDICAL HISTORY : Hypertension. Chronic obstructive pulmonary disease. Diabetes mellitus type II. Asthma. SURGICAL HISTORY : None. ENCOUNTER: Initial ACUITY: 3 days PAIN SCORE: 7/10 LOCATION: Right upper chest FINDINGS: PA and lateral views of the chest demonstrate the lungs to be symmetrically aerated without evidence of mass, infiltrate or effusion. Right-sided PICC line with tip at the cavoatrial junction. The cardi omediastinal contours are unremarkable. Osseous structures are intact. CONCLUSION: No acute disease. Davion Carranza MD on November 12, 2016 at 13:40 Board Certified Radiologist. This report was verified electronically.
[2016-11-12] MEDS ORDERED: RESP: ALBUTEROL 2.5 MG/IPRATROPIUM 0.5 MG NEB (SCH) NEB (16:15)
[2016-11-12] MEDS: MICAFUNGIN INJ 150 MG in SODIUM CHLORIDE 0.9% INJ 100 ML IV SCH (16:53)
[2016-11-12] MEDS: ONDANSETRON HCL 4 MG/2 ML VIAL IV PUSH PRN ×2 (17:06→23:13)
[2016-11-12] MEDS ORDERED: PEG (High)/E-LYTE SOLN 4000 ML BTL PO ONE (18:15)
[2016-11-12] MEDS ORDERED: BISACODYL EC 5 MG TABEC PO ONE (18:15)
--- NOTE | 2016-11-12 19:21 | MB ---
cc: ASHLEY ZARAGOZA MD DATE OF CONSULTATION 11/12/[address] Myron Woodward DATE OF 1965 REASON FOR CONSULTATION Abdominal pain, abnormal CT, GI bleed. HISTORY OF PRESENT ILLNESS Mr. Link is a 51-year-old gentleman with multiple medical problems. He was recently admitted to the hospital with shortness of breath. The patient recently developed abdominal pain and some rectal bleed. He states was going on for the last three days. He reports having some red blood per rectum and some pain mostly in the lower abdomen. He did have these kind of symptoms in the past. He actually underwent an endoscopy and a colonoscopy in July 2016, was recommended to have a follow-up colonoscopy in a year due to poor preparation and presence of adenomatous polyps and esophagitis. The patient had multiple complications from hip surgeries. He was supposed to have replacement of his hip, apparently that was cancelled until GI workup is completed. At this time, he denies any nausea, vomiting or any additional GI symptoms. PAST MEDICAL HISTORY 1. Severe asthma, 2. Chronic obstructive pulmonary disease 3. DVT in the right lower extremity 4. Pulmonary emboli 5. Hyperlipidemia MEDICATIONS 1. Alpha 2. Albuterol 3. Lipitor 4. Symbicort 5. Cardizem 6. Diflucan 7. Dilaudid 8. Ativan 9. Solu-Medrol 10. Singulair 11. Protonix 12. Potassium chloride. 13. Phenergan. 14. Carafate 15. Heparin p.r.n. ALLERGIES TETRACYCLINE DEMEROL FAMILY HISTORY He denies any family history of colon cancer or any other GI pathology. SOCIAL HISTORY Denies smoking, drinking or drug use. PHYSICAL EXAMINATION GENERAL: On clinical exam, he is sitting in bed in no acute distress. VITAL SIGNS: Temperature is 97, pulse 109, respiration 18, blood pressure 144/100. HEENT: Pupils equal, round, reactive to light and accommodation. NECK: No JVD. No lymphadenopathy. CHEST: Clear to auscultation and palpation. CARDIOVASCULAR: S1, S2. No murmur. ABDOMEN: Soft, mildly tender in the right lower quadrant and lower abdomen NEUROLOGY SPECIALIST: Awake, alert, oriented x3. No focal signs identified. LABORATORY DATA Hemoglobin on admission at this time was 9.7, currently nine. MCV is 74, platelets 351. PT/INR 1.5 and 17.2. Chemistry suggestive of AST 38, ALT 166, alkaline phosphatase 119. His bilirubin is 0.3. IMAGING STUDIES The patient had a CT abdomen and pelvis which showed wall thickening along the lateral cecum, large amount of stool in the large bowel. He had, as I mentioned, an endoscopy and colonoscopy in July of 2016 suggestive of anal fissure, hemorrhoids, colon polyps and esophagitis. The patient also underwent workup for elevated liver enzymes and he was negative for viral hepatitis. IMPRESSION GI bleed, abnormal CT, possible right-sided colitis. The patient had a recent colonoscopy dated one year ago which did not suggest presence of any mass. Anemia of chronic disease but GI etiology also needs to be excluded. RECOMMENDATIONS Upper endoscopy and colonoscopy will be scheduled in the morning. May need extra preparation, celiac panel, iron studies. Supportive care. Additional workup for elevation of liver enzymes will be sent as viral etiology was ruled out in the past. I would like to thank Dr. Myron Woodward for referring him to our office for consultation. Ashley Zaragoza MD BSB/SA /6:08 PM /7:08 PM
[2016-11-12 19:23] VITALS: O2SAT 94
[2016-11-12] MEDS: RESP: ALBUTEROL 2.5 MG/IPRATROPIUM 0.5 MG NEB (PRN) NEB (19:23)
[2016-11-12 20:00] VITALS: BP 131/95; PULSE 113; RESP 18; TEMP 96.1; O2SAT 98
[2016-11-12] MEDS: MONTELUKAST SODIUM 10 MG TAB PO SCH (20:23)
[2016-11-12] MEDS: ATORVASTATIN 20 MG TAB PO SCH (20:23)
[2016-11-12] MEDS: INSULIN DETEMIR 100 UNITS/ML VIAL SQ SCH (20:24)
[2016-11-13] MEDS ORDERED: PROMETHAZINE HCL 25 MG SUPP RECTAL PRN (00:45)
[2016-11-13 02:18] LABS: TRANSFERRIN IRON PROFILE 358 MG/DL (200-360)
[2016-11-13] MEDS: oxyCODONE HCL 20 MG CONTROLLED RELEASE TAB PO SCH ×2 (06:00→08:53)
[2016-11-13 06:01] LABS: AUTOMATED NEUTROPHIL # 6.4 TH/MM3 (1.8-7.7); BASOPHIL % 0.5 % (0.0-2.0); EOSINOPHIL # 0.1 TH/MM3 (0-0.4); EOSINOPHIL % 0.8 % (0.0-4.0); HEMATOCRIT 28.6 % (39.0-51.0); LYMPH % 14.3 % (9.0-44.0); LYMPHOCYTE # 1.2 TH/MM3 (1.0-4.8); MEAN CELL VOLUME 73.5 FL (80.0-100.0); MEAN CORPUSCULAR HEMOGLOBIN 22.9 PG (27.0-34.0); MEAN CORPUSCULAR HGB CONC 31.1 % (32.0-36.0); MONO % 6.6 % (0.0-8.0); NEUT % 77.8 % (16.0-70.0); PLATELET COUNT 407 TH/MM3 (150-450); RED BLOOD COUNT 3.89 MIL/MM3 (4.50-5.90); WHITE BLOOD COUNT 8.2 TH/MM3 (4.0-11.0)
[2016-11-13 06:05] LABS: HEMO FLAGS AUTO DIFF
[2016-11-13] MEDS: INSULIN ASPART SUPPLEMENTAL SCALE SQ SCH ×4 (06:05→20:25)
[2016-11-13] MEDS: SUCRALFATE 1 GM TAB PO SCH ×3 (06:07→16:04)
[2016-11-13 06:34] LABS: INTERNATIONAL NORMALIZED RATIO 1.3 RATIO; PROTHROMBIN TIME - PATIENT 14.1 SEC (9.8-11.6)
[2016-11-13 06:52] VITALS: BP 135/98; PULSE 105; RESP 18; TEMP 96.5; O2SAT 98
[2016-11-13 07:29] LABS: OVALOCYTES 1+ (NORMAL); SCAN/DIFF AUTO DIFF CONFIRMED
[2016-11-13 08:00] VITALS: BP 132/98; PULSE 105; RESP 18; TEMP 96.1; O2SAT 98
[2016-11-13 08:23] LABS: ALKALINE PHOSPHATASE 118 U/L (45-117); ALT (GPT) 152 U/L (12-78); ANION GAP 9 MEQ/L (5-15); AST (GOT) 42 U/L (15-37); BICARBONATE 30.9 MEQ/L (21.0-32.0); BLOOD UREA NITROGEN 15 MG/DL (7-18); CHLORIDE 100 MEQ/L (98-107); GLOMERULAR FILTRATION RATE 85 ML/MIN (>89); SODIUM (NA) 140 MEQ/L (136-145); TOTAL BILIRUBIN ADULT 0.3 MG/DL (0.2-1.0)
[2016-11-13 08:24] LABS: POTASSIUM 2.9 MEQ/L (3.5-5.1)
[2016-11-13] MEDS: DILTIAZEM-CD 180 MG CAP ER PO SCH (08:52)
[2016-11-13] MEDS: FUROSEMIDE 40 MG TAB PO SCH ×2 (08:52→17:18)
[2016-11-13] MEDS: FLUCONAZOLE 200 MG TAB PO SCH (08:52)
[2016-11-13] MEDS: ONDANSETRON HCL 4 MG/2 ML VIAL IV PUSH PRN ×2 (08:52→17:16)
[2016-11-13] MEDS: predniSONE 10 MG TAB PO SCH ×2 (08:52→20:24)
[2016-11-13] MEDS: POTASSIUM CHLORIDE 10 MEQ CONTROLLED RELEASE TAB PO SCH ×2 (08:52→20:24)
[2016-11-13] MEDS: PANTOPRAZOLE SOD 40 MG DELAYED RELEASE TAB PO SCH (08:52)
[2016-11-13] MEDS: LORazepam 0.5 MG TAB PO SCH ×2 (08:52→20:24)
[2016-11-13] MEDS: BUDESONIDE-FORMOTEROL 160/4.5 MCG INHALER INH SCH ×2 (08:55→20:22)
[2016-11-13] MEDS ORDERED: PEG (High)/E-LYTE SOLN 4000 ML BTL PO ONE (09:00)
--- NOTE | 2016-11-13 09:41 | HHI.PR ---
Subjective History of Present Illness chart reviewed pt seen & Examined c/o abd pain went for CScope . poor prep , study aborted repeat study in am taking golytely/ moving bowel breathing is ok at rest hip pain is ok /pain meds are helping K running low Offers no other c/o Review of Systems Constitutional Constitutional: Fatigue, Weakness Pulmonary Respiratory: Shortness of Breath, Wheezing Vitals/Results Intake & Output 11/12/16 11/12/16 11/13/16 15:00 23:00 07:00 Intake Total 420 ml 1680 ml 2800 ml Output Total 800 ml 500 ml Balance -380 ml 1680 ml 2300 ml Intake Oral 420 ml 1680 ml 2800 ml Output Urine Total 800 ml 500 ml # Voids 5 2 # Bowel Movements 3 4 Vital Signs Vital Signs Date Time Temp Pulse Resp B/P Pulse Ox O2 Delivery O2 Flow Rate FiO2 11/13/16 08:40 98.0 100 16 146/100 97 11/13/16 08:00 96.1 105 18 132/98 98 11/13/16 07:50 97.7 96 18 132/91 98 11/13/16 06:52 96.5 105 18 135/98 98 11/12/16 20:00 96.1 113 18 131/95 98 11/12/16 19:23 94 Nasal Cannula 2.00 11/12/16 17:54 20 11/12/16 14:35 20 CBC/BMP: 11/13/16 0530 11/13/16 0630 Lab Results Laboratory Tests Test 11/12/16 11/13/16 11/13/16 19:55 05:30 06:30 Iron Level 19 MCG/DL Total Iron Binding Capacity 501 MCG/DL Percent Iron Saturation 3.8 % Vitamin B12 Level 272 PG/ML White Blood Count 8.2 TH/MM3 Red Blood Count 3.89 MIL/MM3 Hemoglobin 8.9 GM/DL Hematocrit 28.6 % Mean Corpuscular Volume 73.5 FL Mean Corpuscular Hemoglobin 22.9 PG Mean Corpuscular Hemoglobin 31.1 % Concent Red Cell Distribution Width 22.0 % Platelet Count 407 TH/MM3 Mean Platelet Volume 6.8 FL Neutrophils (%) (Auto) 77.8 % Lymphocytes (%) (Auto) 14.3 % Monocytes (%) (Auto) 6.6 % Eosinophils (%) (Auto) 0.8 % Basophils (%) (Auto) 0.5 % Neutrophils # (Auto) 6.4 TH/MM3 Lymphocytes # (Auto) 1.2 TH/MM3 Monocytes # (Auto) 0.5 TH/MM3 Eosinophils # (Auto) 0.1 TH/MM3 Basophils # (Auto) 0.0 TH/MM3 CBC Comment AUTO DIFF Differential Comment AUTO DIFF CONFIRMED Ovalocytes 1+ Prothrombin Time 14.1 SEC Prothromb Time International 1.3 RATIO Ratio Sodium Level 140 MEQ/L Potassium Level 2.9 MEQ/L Chloride Level 100 MEQ/L Carbon Dioxide Level 30.9 MEQ/L Anion Gap 9 MEQ/L Blood Urea Nitrogen 15 MG/DL Creatinine 0.93 MG/DL Estimat Glomerular Filtration 85 ML/MIN Rate Random Glucose 127 MG/DL Calcium Level 8.8 MG/DL Total Bilirubin 0.3 MG/DL Aspartate Amino Transf 42 U/L (AST/SGOT) Alanine Aminotransferase 152 U/L (ALT/SGPT) Alkaline Phosphatase 118 U/L Total Protein 6.0 GM/DL Albumin 3.2 GM/DL Physical Exam General General Appearance: Well Developed, Well Nourished, No Acute Distress, Comfortable, Obese Eyes Eye Exam: Pupils Equal, Sclera White, Extraocular Movement Intact Ears & Nose Ears & Nose Exam: Nasal Mucosa [place] Throat Throat Exam: Oral Mucosa [place] & Moist Neck Neck Exam: Neck Supple, Trachea Midline Pulmonary Resp Exam: Breath Sounds Equal, No Distress, Rhonchi Cardiology CV Exam: Regular, Normal Sinus Rhythm Gastrointestinal/Abdomen GI Exam: Soft, Bowel Sounds Present, Positive Bowel Movement, Non-Distended Integumentary Skin Exam: Warm, Dry Extremeties Extremities Exam: No Edema Neurologic Neuro Exam: Alert, Awake, Oriented, Speech Clear, Moving All Extremities Psychiatric Psych Exam: Appropriate Responses PUD Prophylasis PUD Prophylaxis: Protonix Assessment/Plan Assessment/Plan ASSESSMENT AND PLAN: 1. severe Asthma exacerbation- prolong / multiple admissions continue oxygen, PO Prednisone, Xopenex and Atrovent advair Humidifier to oxygen 2. 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 Right hip ultrasound noted orthopedic input noted s/p needle drainage of hematoma right hip, per orthopedic not getting right hip hardware removed. S/P MRI Right hip shows 12 cm hematoma/seroma. s/p needle drainage... S/ P CT Pelvis show no more hematoma collection on Diflucan + Micafungin.. stop date 11/20/16 per ID if remained infection free than will need hip surgery 3. History of depression. Continue home medications. 4. History of anxiety. Continue with Ativan 0.5 milligrams twice a day. 5. Right hip intractable pain. The patient on tramadol and Oxycodone , diilaudid 0.5 milligrams p.o. q. 6 hours PRN pain. 6. History of hyperlipidemia. Continue on Lipitor 20 milligrams p.o. daily. 7. History of pulmonary embolism and DVT right leg. holding coumadin 2 mg PO Daily for C scope resume after Cscope 8. DM , BS worsened d/t steroids use diabetic diet Levemir 20 units subcut. Accu check qac & qhs w SSI 9. Leg edema on Lasix 40 mg PO BID 10. Hypokalemia.. likley d/t golytely induced BM , replace & monitror 11. abd pain / rectal bleeding CT abd thickening of R sided colonic wall +ve lot of stool GI input appreciated H/H is stable Off coumadin for repeat C scope in am d/w PT am labs ss for d/c planning Alvin Sandoval MD Nov 13, 2016 09:40
[2016-11-13] MEDS ORDERED: ERYTHROMYCIN INJ 250 MG in SODIUM CHLORIDE 0.9% INJ 100 ML IV ONE (10:00)
[2016-11-13] MEDS ORDERED: POTASSIUM CHLOR 20 MEQ PREMIX 100 ML IV ONE ×2 (11:00→13:30)
[2016-11-13] MEDS ORDERED: POTASSIUM CHLORIDE 20 MEQ CONTROLLED RELEASE TAB PO ONE (11:00)
[2016-11-13] MEDS: RESP: ALBUTEROL 2.5 MG/IPRATROPIUM 0.5 MG NEB (PRN) NEB ×2 (11:43→19:26)
[2016-11-13] MEDS ORDERED: ONDANSETRON HCL 4 MG/2 ML VIAL IV PUSH ONE (12:00)
--- NOTE | 2016-11-13 12:23 | PD.ORT.PN ---
Subjective Post Op Day #: 3 MONTHS Pain Scale: no pain rt hip Subjective Remarks Hip is doing great. Colonoscopy tomorrow. Range of Motion good without pain, able to SLR and abduct. Distance Walked walks to bathroom and hallway Objective Vitals Vital Signs Date Time Temp Pulse Resp B/P Pulse Ox O2 Delivery O2 Flow Rate FiO2 11/13/16 08:40 98.0 100 16 146/100 97 11/13/16 08:00 96.1 105 18 132/98 98 11/13/16 07:50 97.7 96 18 132/91 98 11/13/16 06:52 96.5 105 18 135/98 98 11/12/16 20:00 96.1 113 18 131/95 98 11/12/16 19:23 94 Nasal Cannula 2.00 11/12/16 17:54 20 11/12/16 14:35 20 I/O 11/12/16 11/12/16 11/12/16 11/13/16 11/13/16 11/13/16 07:00 15:00 23:00 07:00 15:00 23:00 Intake Total 380 ml 420 ml 1680 ml 2800 ml 400 ml Output Total 250 ml 800 ml 500 ml Balance 130 ml -380 ml 1680 ml 2300 ml 400 ml Intake Oral 380 ml 420 ml 1680 ml 2800 ml Other 400 ml Output Urine Total 250 ml 800 ml 500 ml # Voids 5 2 # Bowel Movements 0 3 4 Result Diagram: 11/13/16 0530 11/13/16 0630 Other Results Laboratory Tests Test 11/13/16 05:30 Prothrombin Time 14.1 SEC (9.8-11.6) Prothromb Time International 1.3 RATIO Ratio Imaging Last 72 hours Impressions Chest X-Ray 11/12/16 0000 Signed Impressions: Service Date/Time: Saturday, November 12, 2016 12:56 - CONCLUSION: No acute disease. Davion Carranza MD Abdomen/Pelvis CT 11/12/16 0000 Signed Impressions: Service Date/Time: Saturday, November 12, 2016 08:59 - CONCLUSION: 1. Wall thickening along the lateral cecum. Colonoscopy may be warranted. No acute inflammatory process. 2. No renal calculi or hydronephrosis. 3. Copious amount of stool throughout the large bowel. Davion Carranza MD Hip and Pelvis X-Ray 11/11/16 0000 Signed Impressions: Service Date/Time: Friday, November 11, 2016 19:32 - CONCLUSION: No acute radiographic abnormality right bipolar hip arthroplasty. Adin Kendall MD Last 24 hours Impressions Hip MRI 10/02/16 0000 Signed Impressions: Service Date/Time: Sunday, October 02, 2016 09:13 - CONCLUSION: 12 cm collection in the right hip and buttock region, likely hematoma/seroma. The lesion could certainly be drained or sampled without difficulty under CT guidance. Adin Guillermo MD Objective Remarks Hip continues to look better. No redness, scar maturing , and no pain on moving around The induration is much lesser, almost gone. Assessment & Plan Assessment and Plan Orthopedically stable Ghada infection under control. Labs and Xrays good CT scan shows small fluid clllection rt hip To have ID reevaluate and decide how many more weeks to continue antifungals. Once antifungals stopped, wait several weeks for medical condition to stabilize outside hospital, before MARLENY Shaan Lindo MD Nov 13, 2016 12:23
[2016-11-13] MEDS: MICAFUNGIN INJ 150 MG in SODIUM CHLORIDE 0.9% INJ 100 ML IV SCH (16:08)
[2016-11-13] MEDS ORDERED: PROPOFOL 200 MG/20 ML AMP IV ONE (17:24)
[2016-11-13] MEDS ORDERED: oxyCODONE HCL 20 MG CONTROLLED RELEASE TAB PO ONE (18:00)
[2016-11-13 19:25] VITALS: O2SAT 96
[2016-11-13 20:00] VITALS: BP 132/107; PULSE 105; RESP 18; TEMP 97; O2SAT 99
[2016-11-13] MEDS: MONTELUKAST SODIUM 10 MG TAB PO SCH (20:24)
[2016-11-13] MEDS: ATORVASTATIN 20 MG TAB PO SCH (20:24)
[2016-11-13] MEDS: INSULIN DETEMIR 100 UNITS/ML VIAL SQ SCH (20:25)
[2016-11-13] MEDS: ACETAMINOPHEN/HYDROcodone 325 MG/7.5 MG TAB PO PRN (20:25)
[2016-11-13 22:00] VITALS: BP 149/99
[2016-11-14] MEDS ORDERED: ENALAPRILAT 1.25 MG/ML VIAL IV PUSH PRN (05:00)
[2016-11-14] MEDS: oxyCODONE HCL 20 MG CONTROLLED RELEASE TAB PO SCH ×2 (05:33→17:21)
[2016-11-14] MEDS: INSULIN ASPART SUPPLEMENTAL SCALE SQ SCH ×4 (05:33→22:09)
[2016-11-14] MEDS: SUCRALFATE 1 GM TAB PO SCH ×3 (05:33→17:22)
[2016-11-14 06:55] VITALS: BP 139/97; PULSE 91; RESP 18; TEMP 97.6; O2SAT 98
[2016-11-14 07:11] LABS: HEMATOCRIT 28.8 % (39.0-51.0); MEAN CELL VOLUME 73.7 FL (80.0-100.0); MEAN CORPUSCULAR HEMOGLOBIN 23.2 PG (27.0-34.0); MEAN CORPUSCULAR HGB CONC 31.5 % (32.0-36.0); PLATELET COUNT 411 TH/MM3 (150-450); RED CELL DISTRIBUTION WIDTH 21.5 % (11.6-17.2); WHITE BLOOD COUNT 6.5 TH/MM3 (4.0-11.0)
[2016-11-14 07:15] VITALS: BP 153/100; PULSE 115; RESP 20; TEMP 97.9; O2SAT 98
[2016-11-14 07:16] LABS: REVIEW FLAG FINAL
[2016-11-14 07:19] LABS: POTASSIUM 3.2 MEQ/L (3.5-5.1)
[2016-11-14 07:22] LABS: BICARBONATE 31.1 MEQ/L (21.0-32.0); INTERNATIONAL NORMALIZED RATIO 1.1 RATIO; PROTHROMBIN TIME - PATIENT 12.1 SEC (9.8-11.6)
--- NOTE | 2016-11-14 07:45 | GIPROC ---
[facility] [address] [place] [address], [id number] COLONOSCOPY PROCEDURE REPORT EXAM DATE: 11/14/2016 PATIENT NAME: Philip Link MR #: [id number] BIRTHDATE: 1965 ENDOSCOPIST: Ashley Street MD ORDER #: [id number] GEOTHERMAL OPERATING ENGINEER: Jackelin Foreman and Rm Powers STATUS: inpatient INDICATIONS: The patient is a 51 yr old male here for a colonoscopy due to rectal bleeding PROCEDURE PERFORMED: Colonoscopy, diagnostic MEDICATIONS: None and Per Anesthesia. PREP QUALITY: 20 % obscured PREP TYPE:GoLytely PREP TYPE:Magnesium Citrate ESTIMATED BLOOD LOSS: None CONSENT: The patient understands the risks and benefits of the procedure and understands that these risks include, but are not limited to: sedation, allergic reaction, infection, perforation and/or bleeding. Alternative means of evaluation and treatment include, among others: physical exam, x-rays, and/or surgical intervention. The patient elects to proceed with this endoscopic procedure. medical equipment was checked for proper function. Hand hygiene and appropriate measures for infection prevention was taken. After the risks, benefits and alternatives of the procedure were thoroughly explained, Informed consent was verified, confirmed and timeout was successfully executed by the treatment team. A digital exam revealed hemorrhoids The Pentax EC-[id number] endoscope was introduced through the anus and advanced to the cecum, which was identified by both the appendix and ileocecal valve. The instrument was then slowly withdrawn as the colon was fully examined. COLON FINDINGS: Diverticulosis sigmoid,descending diminutive polyp hepatic flexure-cold biopsy with complete removal semisoils stoolo throughout colon. Retroflexed views revealed internal hemorrhoids and Retroflexed views revealed medium internal hemorrhoids The scope was then completely withdrawn from the patient and the procedure terminated. PROCEDURE WITHDRAWAL TIME:6minutes ADVERSE EVENTS: There were no complications. IMPRESSIONS: 1. Diverticulosis sigmoid,descending diminutive polyp hepatic flexure-cold biopsy with complete removal semisoils stoolo throughout colon 2. Retroflexed views revealed internal hemorrhoids 3. Retroflexed views revealed medium internal hemorrhoids 4. Revealed hemorrhoids RECOMMENDATIONS: 1. await biopsy results. Biopsy results will not be ready for 7-10 days. If you don't hear from us in two weeks, call our office for results. 2. Benefiber 2 tsp daily 3. yearly rectal exams 4. proctozone cream if further bleeding colorectal surgery for hemorrhoidsl treatment constipation precautions relistore ? RECALL: Colonoscopy, pending biopsy results. Ashley Street MD eSigned: Ashley Street MD 11/14/2016 7:45 AM cc: CPT CODES: 32943 Colonoscopy, flexible, proximal to splenic flexure; diagnostic, with or without collection of specimen(s) by brushing or washing, with or without colon decompression (separate procedure) ICD CODES: 455.2 Internal hemorrhoids with other complication The ICD and CPT codes recommended by this software are interpretations from the data that the clinical staff has captured with the software. The verification of the translation of this report to the ICD and CPT codes and modifiers is the sole responsibility of the health care institution and practicing physician where this report was generated. [employer] will not be held responsible for the validity of the ICD and CPT codes included on this report. AMA assumes no liability for data contained or not contained herein. CPT is a registered trademark of the [employer]. PATIENT NAME: Philip Link MR#: [id number]
--- NOTE | 2016-11-14 07:48 | GIPROC ---
[address], [address] EGD PROCEDURE REPORT EXAM DATE: 11/14/2016 PATIENT NAME: Philip Link MR #: [id number] BIRTHDATE: 1965 ATTENDING: Ashley Street MD ORDER #: [id number] LINUX ADMINISTRATOR: Jackelin Foreman and Rm Powers STATUS: inpatient INDICATIONS: The patient is a 51 yr old male here for an EGD due to anemia, gi bleeding, abdominal pain PROCEDURE PERFORMED: EGD w/ biopsy MEDICATIONS: None and Per Anesthesia. TOPICAL ANESTHETIC: none CONSENT: The patient understands the risks and benefits of the procedure and understands that these risks include, but are not limited to: sedation, allergic reaction, infection, perforation and/or bleeding. Alternative means of evaluation and treatment include, among others: physical exam, x-rays, and/or surgical intervention. The patient elects to proceed with this endoscopic procedure. medical equipment was checked for proper function. Hand hygiene and appropriate measures for infection prevention was taken. After the risks, benefits and alternatives of the procedure were thoroughly explained, Informed consent was verified, confirmed and timeout was successfully executed by the treatment team. The patient was anesthetized with topical anesthesia and the EC-[id number] (Pedi C) endoscope was introduced through the mouth and advanced to the second portion of the duodenum. Retroflexed views revealed a hiatal hernia The gastroscope was then slowly withdrawn and removed. Duodenum normal-biopsy gastritis antrum-biopsy esophagitis distal esophagus-biopsy. ADVERSE EVENTS: There were no complications. IMPRESSIONS: 1. Duodenum normal-biopsy gastritis antrum-biopsy esophagitis distal esophagus-biopsy 2. Retroflexed views revealed a hiatal hernia RECOMMENDATIONS: 1. await biopsy results. Biopsy results will not be ready for 7-10 days. If you don't hear from us in two weeks, call our office for biopsy results. 2. anti-reflux regimen 3. continue PPI REPEAT EXAM: EGD pending biopsy results. Ashley Street MD eSigned: Ashley Street MD 11/14/2016 7:48 AM cc: CPT CODES: 32944 Upper gastrointestinal endoscopy including esophagus, stomach, and either the duodenum and/or jejunum as appropriate; with biopsy, single or multiple ICD CODES: 553.3 Diaphragmatic hernia without mention of obstruction or gangrene The ICD and CPT codes recommended by this software are interpretations from the data that the clinical staff has captured with the software. The verification of the translation of this report to the ICD and CPT codes and modifiers is the sole responsibility of the health care institution and practicing physician where this report was generated. [employer] will not be held responsible for the validity of the ICD and CPT codes included on this report. A assumes no liability for data contained or not contained herein. CPT is a registered trademark of the [employer]. PATIENT NAME: Philip Link MR#: [id number]
[2016-11-14] MEDS ORDERED: PROPOFOL 200 MG/20 ML AMP IV ONE (08:16)
[2016-11-14] MEDS: FLUCONAZOLE 200 MG TAB PO SCH (08:54)
[2016-11-14] MEDS: predniSONE 10 MG TAB PO SCH ×2 (08:54→22:08)
[2016-11-14] MEDS: DILTIAZEM-CD 180 MG CAP ER PO SCH (08:54)
[2016-11-14] MEDS: POTASSIUM CHLORIDE 10 MEQ CONTROLLED RELEASE TAB PO SCH ×2 (08:54→22:08)
[2016-11-14] MEDS: LORazepam 0.5 MG TAB PO SCH ×2 (08:55→22:08)
[2016-11-14] MEDS: PANTOPRAZOLE SOD 40 MG DELAYED RELEASE TAB PO SCH (08:55)
[2016-11-14] MEDS: FUROSEMIDE 40 MG TAB PO SCH ×2 (08:55→17:21)
--- NOTE | 2016-11-14 08:55 | HHI.PR ---
Subjective Interval History Patient seen and examined post EGD and colonoscopy No abd pain breathing is ok at rest without oxygen hip pain is ok /pain meds are helping K running low Offers no other c/o No cough No chest pain No headache or dizziness Review of system for 10 point system otherwise unremarkable Review of Systems Constitutional Constitutional: Fatigue, Weakness Pulmonary Respiratory: Shortness of Breath, Wheezing Vitals/Results Intake & Output 11/13/16 11/13/16 11/14/16 15:00 23:00 07:00 Intake Total 1120 ml 600 ml Output Total 2000 ml 1200 ml Balance -880 ml -600 ml Intake Oral 720 ml 600 ml Other 400 ml Output Urine Total 2000 ml 1200 ml # Bowel Movements 0 5 Vital Signs Vital Signs Date Time Temp Pulse Resp B/P Pulse Ox O2 Delivery O2 Flow Rate FiO2 11/14/16 08:07 83 16 146/105 98 11/14/16 07:48 97.6 86 16 138/95 98 11/14/16 06:55 97.6 91 18 139/97 98 11/14/16 06:33 20 11/13/16 22:00 149/99 11/13/16 21:25 20 11/13/16 20:00 97.0 105 18 132/107 99 11/13/16 19:25 96 21 CBC/BMP: 11/14/16 0645 11/14/16 0645 Lab Results Laboratory Tests Test 11/14/16 06:45 White Blood Count 6.5 TH/MM3 Red Blood Count 3.90 MIL/MM3 Hemoglobin 9.1 GM/DL Hematocrit 28.8 % Mean Corpuscular Volume 73.7 FL Mean Corpuscular Hemoglobin 23.2 PG Mean Corpuscular Hemoglobin 31.5 % Concent Red Cell Distribution Width 21.5 % Platelet Count 411 TH/MM3 Mean Platelet Volume 6.3 FL Prothrombin Time 12.1 SEC Prothromb Time International 1.1 RATIO Ratio Sodium Level 141 MEQ/L Potassium Level 3.2 MEQ/L Chloride Level 101 MEQ/L Carbon Dioxide Level 31.1 MEQ/L Anion Gap 9 MEQ/L Blood Urea Nitrogen 9 MG/DL Creatinine 0.81 MG/DL Estimat Glomerular Filtration 100 ML/MIN Rate Random Glucose 119 MG/DL Calcium Level 8.9 MG/DL Physical Exam General General Appearance: Well Developed, Well Nourished, No Acute Distress, Comfortable, Obese Eyes Eye Exam: Pupils Equal, Sclera White, Extraocular Movement Intact Ears & Nose Ears & Nose Exam: Nasal Mucosa [place] Throat Throat Exam: Oral Mucosa [place] & Moist Neck Neck Exam: Neck Supple, Trachea Midline Pulmonary Resp Exam: Breath Sounds Equal, No Distress, Rhonchi Resp Remarks Occasional rhonchi Cardiology CV Exam: Regular, Normal Sinus Rhythm Gastrointestinal/Abdomen GI Exam: Soft, Bowel Sounds Present, Positive Bowel Movement, Non-Distended Integumentary Skin Exam: Warm, Dry Extremeties Extremities Exam: No Edema Neurologic Neuro Exam: Alert, Awake, Oriented, Speech Clear, Moving All Extremities Psychiatric Psych Exam: Appropriate Responses PUD Prophylasis PUD Prophylaxis: Protonix Assessment/Plan Assessment/Plan ASSESSMENT AND PLAN: 1. severe Asthma exacerbation- prolong / multiple admissions continue oxygen, PO Prednisone, Xopenex and Atrovent advair Humidifier to oxygen 2. 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 Right hip ultrasound noted orthopedic input noted s/p needle drainage of hematoma right hip, per orthopedic not getting right hip hardware removed. S/P MRI Right hip shows 12 cm hematoma/seroma. s/p needle drainage... S/ P CT Pelvis show no more hematoma collection on Diflucan + Micafungin.. stop date 11/20/16 per ID if remained infection free than will need hip surgery 3. History of depression. Continue home medications. 4. History of anxiety. Continue with Ativan 0.5 milligrams twice a day. 5. Right hip intractable pain. The patient on tramadol and Oxycodone , diilaudid 0.5 milligrams p.o. q. 6 hours PRN pain. 6. History of hyperlipidemia. Continue on Lipitor 20 milligrams p.o. daily. 7. History of pulmonary embolism and DVT right leg. Coumadin on hold 2 mg PO Daily for C scope. Will resume today in follow PT/INR 8. DM , BS worsened d/t steroids use, now better controlled diabetic diet Levemir 20 units subcut. Accu check qac & qhs w SSI 9. Leg edema on Lasix 40 mg PO BID 10. Hypokalemia.. likley d/t golytely induced BM , replace & monitror 11. abd pain / rectal bleeding CT abd thickening of R sided colonic wall +ve lot of stool GI input appreciated H/H is stable Off coumadin C scope showed diverticulosis, 1 polyp removed, internal hemorrhoids and external hemorrhoids EGD showing esophagitis and gastritis. PPI d/w PT am labs ss for d/c planning Partner will follow from tomorrow Enoch Godoy MD Nov 14, 2016 08:55
[2016-11-14] MEDS: BUDESONIDE-FORMOTEROL 160/4.5 MCG INHALER INH SCH ×2 (08:56→22:08)
[2016-11-14] MEDS ORDERED: POTASSIUM CHLORIDE 20 MEQ CONTROLLED RELEASE TAB PO ONE (09:00)
[2016-11-14] MEDS ORDERED: WARFARIN SOD 4 MG TAB PO ONE (09:00)
[2016-11-14] MEDS: HYDROCORTISONE/PRAMOXINE RECTAL FOAM 10 GM CAN RECTAL SCH ×2 (10:20→17:22)
[2016-11-14] MEDS: METHYLNALTREXONE BROMIDE 12 MG/0.6 ML VIAL SQ SCH (10:20)
[2016-11-14] MEDS: POLYETHYLENE GLYCOL 17 GM PKG PO SCH (10:22)
[2016-11-14] MEDS: DOCUSATE SODIUM 100 MG CAP PO SCH ×2 (10:22→22:08)
[2016-11-14] MEDS: RESP: ALBUTEROL 2.5 MG/IPRATROPIUM 0.5 MG NEB (PRN) NEB ×2 (13:20→19:29)
[2016-11-14 13:21] VITALS: O2SAT 98
[2016-11-14 19:29] VITALS: O2SAT 97
[2016-11-14 20:00] VITALS: BP 142/98; PULSE 110; RESP 18; TEMP 97.1; O2SAT 98
[2016-11-14] MEDS: MICAFUNGIN INJ 150 MG in SODIUM CHLORIDE 0.9% INJ 100 ML IV SCH (22:07)
[2016-11-14] MEDS: INSULIN DETEMIR 100 UNITS/ML VIAL SQ SCH (22:09)
[2016-11-14] MEDS: MONTELUKAST SODIUM 10 MG TAB PO SCH (22:09)
[2016-11-14] MEDS: ATORVASTATIN 20 MG TAB PO SCH (22:09)
[2016-11-15] MEDS: HYDROCORTISONE/PRAMOXINE RECTAL FOAM 10 GM CAN RECTAL SCH ×3 (01:00→17:23)
[2016-11-15] MEDS: SUCRALFATE 1 GM TAB PO SCH ×3 (05:40→17:27)
[2016-11-15] MEDS: oxyCODONE HCL 20 MG CONTROLLED RELEASE TAB PO SCH ×2 (05:40→17:21)
[2016-11-15] MEDS: INSULIN ASPART SUPPLEMENTAL SCALE SQ SCH ×4 (05:57→20:04)
[2016-11-15 07:48] LABS: POTASSIUM 3.2 MEQ/L (3.5-5.1)
[2016-11-15 07:50] LABS: INTERNATIONAL NORMALIZED RATIO 1.2 RATIO; PROTHROMBIN TIME - PATIENT 13.3 SEC (9.8-11.6)
[2016-11-15 07:51] LABS: BICARBONATE 30.1 MEQ/L (21.0-32.0)
[2016-11-15 07:51] LABS: IGA SERUM 19 mg/dL (81-463)
[2016-11-15 08:00] VITALS: BP 140/96; PULSE 96; RESP 20; TEMP 96.4; O2SAT 96
[2016-11-15] MEDS ORDERED: POTASSIUM CHLORIDE 10 MEQ CONTROLLED RELEASE TAB PO ONE (08:00)
[2016-11-15] MEDS: RESP: ALBUTEROL 2.5 MG/IPRATROPIUM 0.5 MG NEB (PRN) NEB ×3 (08:19→19:26)
[2016-11-15 08:21] VITALS: O2SAT 97
[2016-11-15] MEDS: POLYETHYLENE GLYCOL 17 GM PKG PO SCH (09:04)
[2016-11-15] MEDS: DILTIAZEM-CD 180 MG CAP ER PO SCH (09:05)
[2016-11-15] MEDS: PANTOPRAZOLE SOD 40 MG DELAYED RELEASE TAB PO SCH (09:05)
[2016-11-15] MEDS: FLUCONAZOLE 200 MG TAB PO SCH (09:05)
[2016-11-15] MEDS: FUROSEMIDE 40 MG TAB PO SCH ×2 (09:05→17:21)
[2016-11-15] MEDS: DOCUSATE SODIUM 100 MG CAP PO SCH ×2 (09:05→20:15)
[2016-11-15] MEDS: predniSONE 10 MG TAB PO SCH ×2 (09:05→20:15)
[2016-11-15] MEDS: LORazepam 0.5 MG TAB PO SCH ×2 (09:05→20:15)
[2016-11-15] MEDS: BUDESONIDE-FORMOTEROL 160/4.5 MCG INHALER INH SCH ×2 (09:06→20:14)
[2016-11-15] MEDS: POTASSIUM CHLORIDE 10 MEQ CONTROLLED RELEASE TAB PO SCH ×2 (09:13→20:15)
--- NOTE | 2016-11-15 12:08 | HHI.PR ---
Subjective Interval History Alert, oriented, complaining of mild discomfort right hip, continues to have cough and wheezing however less trouble breathing Review of Systems Constitutional Constitutional: Fatigue, Weakness Constitutional Remarks As above, and 10 systems reviewed otherwise negative Pulmonary Respiratory: Shortness of Breath, Wheezing Vitals/Results Intake & Output 11/14/16 11/14/16 11/15/16 15:00 23:00 07:00 Intake Total 1000 ml 480 ml 480 ml Output Total 1200 ml 175 ml 550 ml Balance -200 ml 305 ml -70 ml Intake Oral 1000 ml 480 ml 480 ml Output Urine Total 1200 ml 175 ml 550 ml # Voids 2 # Bowel Movements 1 0 0 Vital Signs Vital Signs Date Time Temp Pulse Resp B/P Pulse Ox O2 Delivery O2 Flow Rate FiO2 11/15/16 08:21 97 Nasal Cannula 2.00 11/15/16 08:00 96.4 96 20 140/96 96 11/14/16 20:00 97.1 110 18 142/98 98 11/14/16 19:29 97 21 11/14/16 13:21 98 21 CBC/BMP: 11/14/16 0645 11/15/16 0650 Lab Results Laboratory Tests Test 11/15/16 06:50 Prothrombin Time 13.3 SEC Prothromb Time International 1.2 RATIO Ratio Sodium Level 141 MEQ/L Potassium Level 3.2 MEQ/L Chloride Level 102 MEQ/L Carbon Dioxide Level 30.1 MEQ/L Anion Gap 9 MEQ/L Blood Urea Nitrogen 10 MG/DL Creatinine 0.89 MG/DL Estimat Glomerular Filtration 90 ML/MIN Rate Random Glucose 164 MG/DL Calcium Level 8.6 MG/DL Physical Exam General General Appearance: Well Developed, Well Nourished, No Acute Distress, Comfortable, Obese Eyes Eye Exam: Pupils Equal, Sclera White, Extraocular Movement Intact Ears & Nose Ears & Nose Exam: Nasal Mucosa [place] Throat Throat Exam: Oral Mucosa [place] & Moist Neck Neck Exam: Neck Supple, Trachea Midline Pulmonary Resp Exam: Breath Sounds Equal, Rhonchi Resp Remarks Wheezing especially over the trachea Cardiology CV Exam: Regular, Normal Sinus Rhythm Gastrointestinal/Abdomen GI Exam: Soft, Bowel Sounds Present, Positive Bowel Movement, Non-Distended Musculoskeletal MS Remarks Mild swelling right hip and right calf Integumentary Skin Exam: Warm, Dry Extremeties Extremities Exam: No Edema Neurologic Neuro Exam: Alert, Awake, Oriented, Speech Clear, Moving All Extremities Psychiatric Psych Exam: Appropriate Responses VTE Prophylaxis VTE Prophylaxis Meds: Coumadin PUD Prophylasis PUD Prophylaxis: Protonix Assessment/Plan Assessment/Plan Assessment COPD exacerbation Right hip fungal infection Right hip seroma Status post right hip drainage Depression Anxiety Right hip pain Status post upper endoscopy on 11/14/16 New diagnosis of distal esophagitis Significant history for pulmonary embolism and right lower extremity DVT Management Supplemental oxygen Steroids bronchodilators Protonix Antibiotics per ID On micafungin until 11/20/16 Coumadin, titrate to keep INR 2-3 Pain control Discussed with patient Discussed with nurse Bertram Santoyo MD Nov 15, 2016 12:08 Off coumadin C scope showed diverticulosis, 1 polyp removed, internal hemorrhoids and external hemorrhoids EGD showing esophagitis and gastritis. PPI d/w PT am labs ss for d/c planning Partner will follow from tomorrow Bertram Santoyo MD Nov 15, 2016 12:08
[2016-11-15 13:50] LABS: MITOCHONDRIAL ABS LESS THAN 20.0 U (())
[2016-11-15] MEDS ORDERED: WARFARIN SOD 2.5 MG TAB PO SCH (16:00)
[2016-11-15] MEDS ORDERED: WARFARIN SOD 5 MG TAB PO SCH (16:00)
[2016-11-15 19:25] VITALS: O2SAT 99
[2016-11-15 19:51] LABS: ENDOMYSIAL AB TITER ND (<1:5); TISSUE TRANSGLUTAMINASE AB LESS THAN 1 U/mL (())
[2016-11-15 20:00] VITALS: BP 134/83; PULSE 110; RESP 18; TEMP 96.5; O2SAT 97
[2016-11-15] MEDS: MICAFUNGIN INJ 150 MG in SODIUM CHLORIDE 0.9% INJ 100 ML IV SCH (20:12)
[2016-11-15] MEDS: INSULIN DETEMIR 100 UNITS/ML VIAL SQ SCH (20:14)
[2016-11-15] MEDS: MONTELUKAST SODIUM 10 MG TAB PO SCH (20:15)
[2016-11-15] MEDS: ATORVASTATIN 20 MG TAB PO SCH (20:15)
[2016-11-16] MEDS: HYDROCORTISONE/PRAMOXINE RECTAL FOAM 10 GM CAN RECTAL SCH ×3 (00:40→17:00)
[2016-11-16 03:50] LABS: TISSUE TRANSGLUTAMINASE AB IGG LESS THAN 1 U/mL (())
[2016-11-16] MEDS: oxyCODONE HCL 20 MG CONTROLLED RELEASE TAB PO SCH ×2 (06:05→18:49)
[2016-11-16] MEDS: SUCRALFATE 1 GM TAB PO SCH ×3 (06:05→16:46)
[2016-11-16] MEDS: INSULIN ASPART SUPPLEMENTAL SCALE SQ SCH ×4 (06:06→20:21)
[2016-11-16 08:00] VITALS: BP 149/97; PULSE 109; RESP 19; TEMP 97.2; O2SAT 96
[2016-11-16 08:28] LABS: POTASSIUM 3.6 MEQ/L (3.5-5.1)
[2016-11-16 08:31] LABS: BICARBONATE 29.7 MEQ/L (21.0-32.0); INTERNATIONAL NORMALIZED RATIO 1.8 RATIO; PROTHROMBIN TIME - PATIENT 19.9 SEC (9.8-11.6)
[2016-11-16] MEDS: LORazepam 0.5 MG TAB PO SCH ×2 (08:39→20:32)
[2016-11-16] MEDS: PANTOPRAZOLE SOD 40 MG DELAYED RELEASE TAB PO SCH (08:39)
[2016-11-16] MEDS: POTASSIUM CHLORIDE 10 MEQ CONTROLLED RELEASE TAB PO SCH ×2 (08:39→20:18)
[2016-11-16] MEDS: predniSONE 10 MG TAB PO SCH ×2 (08:39→20:18)
[2016-11-16] MEDS: DOCUSATE SODIUM 100 MG CAP PO SCH ×2 (08:39→20:18)
[2016-11-16] MEDS: FUROSEMIDE 40 MG TAB PO SCH ×2 (08:39→18:49)
[2016-11-16] MEDS: ACETAMINOPHEN/HYDROcodone 325 MG/7.5 MG TAB PO PRN ×2 (08:40→20:19)
[2016-11-16] MEDS: FLUCONAZOLE 200 MG TAB PO SCH (08:40)
[2016-11-16] MEDS: POLYETHYLENE GLYCOL 17 GM PKG PO SCH (08:40)
[2016-11-16] MEDS: DILTIAZEM-CD 180 MG CAP ER PO SCH (08:40)
[2016-11-16] MEDS: METHYLNALTREXONE BROMIDE 12 MG/0.6 ML VIAL SQ SCH (08:41)
[2016-11-16] MEDS: BUDESONIDE-FORMOTEROL 160/4.5 MCG INHALER INH SCH ×2 (08:41→20:30)
--- NOTE | 2016-11-16 09:00 | HHI.PR ---
Subjective Remarks Alert, oriented, complaining of mild discomfort right hip, continues to have cough and wheezing however less trouble breathing C/o pain in RUQ. No NVD. Objective Objective Results - Vital Signs Date Time Temp Pulse Resp B/P Pulse Ox O2 Delivery O2 Flow Rate FiO2 11/16/16 07:09 20 11/15/16 20:00 96.5 110 18 134/83 97 11/15/16 19:25 99 21 I/O 11/15/16 11/15/16 11/15/16 11/16/16 11/16/16 11/16/16 07:00 15:00 23:00 07:00 15:00 23:00 Intake Total 480 ml 600 ml 630 ml 480 ml Output Total 550 ml 900 ml 600 ml 500 ml Balance -70 ml -300 ml 30 ml -20 ml Intake Oral 480 ml 600 ml 480 ml 480 ml IV Total 150 ml Output Urine Total 550 ml 900 ml 600 ml 500 ml # Bowel Movements 0 1 0 0 Result Diagram: 11/14/16 0645 11/16/16 0810 Other Results Laboratory Tests Test 11/16/16 08:10 Prothrombin Time 19.9 Prothromb Time International 1.8 Ratio Sodium Level 140 Potassium Level 3.6 Chloride Level 102 Carbon Dioxide Level 29.7 Anion Gap 8 Blood Urea Nitrogen 10 Creatinine 0.75 Estimat Glomerular Filtration 109 Rate Random Glucose 143 Calcium Level 8.9 ROS General: No: Fatigue, Weakness, Other HEENT: No: Sore Throat, Dysphagia, Other Cardiac: No: Chest Pain, Edema, Palpitations, Other Pulmonary: Cough, Wheezing GI: Abdominal Pain (RUQ abd pain. 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 ) Psych: No: Anxiety, Depression, Other Skin: No: Itching, Rash, Other Physical Exam Physical Exam PHYSICAL EXAMINATION GENERAL: This is a well-developed, well-nourished male who appears to be in no acute distress. He is alert and awake. HEAD: Normocephalic without any lesion or mass noted. . EYES: [place]err[place], Normal eye movement, no icterus. OROPHARYNGEAL: Oropharynx without erythema or edema. MOUTH/THROAT: Moist oral mucosa. NECK: Supple. Trachea midline without deviation. CARDIAC: Regular rhythm, regular rate, S1 and S2 are heard. LUNGS: Clear to auscultation bilaterally. Rhonchi+. ABDOMEN: Soft, tenderness in RUQ, no organomegaly or masses. Bowel sounds are heard in all four quadrants. No rebound. No guarding. EXTREMITIES: no CCE. NEUROLOGICAL: No focal deficits. SKIN:Warm and moist PSYCH: Mood and affect appropriate DVT PROPHYLAXIS: COUMADIN PUD PROPHYLAXIS: PPI A/P Assessment and Plan Assessment COPD exacerbation Right hip fungal infection Right hip seroma Status post right hip drainage Depression Anxiety Right hip pain RUQ abd pain. Status post upper endoscopy on 11/14/16 New diagnosis of distal esophagitis Significant history for pulmonary embolism and right lower extremity DVT hypokalemia Management Supplemental oxygen Steroids bronchodilators Protonix Antibiotics per ID On micafungin until 11/20/16 Coumadin, titrate to keep INR 2-3 Potassium better s/p replacement. monitor. Request US abd r/o cholecystitis. Pain control Discussed with patient Discussed with nurse AM labs. Socorro Sosa MD Nov 16, 2016 09:00
[2016-11-16] MEDS: RESP: ALBUTEROL 2.5 MG/IPRATROPIUM 0.5 MG NEB (PRN) NEB ×3 (09:17→20:14)
[2016-11-16 09:19] VITALS: O2SAT 96
[2016-11-16] MEDS: ONDANSETRON HCL 4 MG/2 ML VIAL IV PUSH PRN (13:57)
[2016-11-16] MEDS ORDERED: WARFARIN SOD 2 MG TAB PO SCH (16:00)
--- NOTE | 2016-11-16 18:39 | RADHPO ---
EXAM DATE/TIME: 11/16/2016 17:59 [facility] COMPARISON: CT ABDOMEN & PELVIS W/O CONTRAST, November 12, 2016, 8:59. INDICATIONS : Right upper quadrant pain. MEDICAL HISTORY : Deep venous thrombosis. Chronic obstructive pulmonary disease. Gastroesophageal reflux disease. Antic oagulant therapy. Pulmonary embolism. SURGICAL HISTORY : Tonsillectomy. Appendectomy. Bilateral hip replacement. ENCOUNTER: Initial ACUITY: 1 day PAIN SCORE: 5/10 LOCATION: Right upper quadrant MEASUREMENTS: LIVER: 18.0 cm length COMMON DUCT: 6 mm RIGHT KIDNEY: 11.1 x 6.0 x 5.7 cm FINDINGS: LIVER: Diffusely increased echogenicity. No focal hepatic lesion. There is normal flow velocity and directio n in the main portal vein. COMMON DUCT: No intraluminal mass or stone visualized. GALLBLADDER: Minimal sludge. No gallbladder wall thickening or pericholecystic fluid. PANCREAS: Considerably obscured by bowel gas. No perceptible abnormality. RIGHT KIDNEY: No evidence of hydronephrosis, stone, or mass. CONCLUSION: Liver is mildly fatty infiltrated. Trace sludge in the gallbladder. Otherwise within normal limits. Adin Kendall MD on November 16, 2016 at 18:36 Board Certified Radiologist. This report was verified electronically.
[2016-11-16 20:14] VITALS: O2SAT 97
[2016-11-16] MEDS: MONTELUKAST SODIUM 10 MG TAB PO SCH (20:19)
[2016-11-16] MEDS: ATORVASTATIN 20 MG TAB PO SCH (20:19)
[2016-11-16] MEDS: INSULIN DETEMIR 100 UNITS/ML VIAL SQ SCH (20:20)
[2016-11-16] MEDS: MICAFUNGIN INJ 150 MG in SODIUM CHLORIDE 0.9% INJ 100 ML IV SCH (20:28)
[2016-11-16 20:33] VITALS: BP 140/92; PULSE 108; RESP 20; TEMP 97.8; O2SAT 97
[2016-11-17] MEDS: traMADol HCL 50 MG TAB PO PRN ×2 (00:17→14:08)
[2016-11-17] MEDS: HYDROCORTISONE/PRAMOXINE RECTAL FOAM 10 GM CAN RECTAL SCH ×4 (00:18→22:42)
[2016-11-17] MEDS: oxyCODONE HCL 20 MG CONTROLLED RELEASE TAB PO SCH ×2 (05:49→16:54)
[2016-11-17] MEDS: SUCRALFATE 1 GM TAB PO SCH ×3 (06:24→16:54)
[2016-11-17] MEDS: INSULIN ASPART SUPPLEMENTAL SCALE SQ SCH ×4 (06:24→21:00)
[2016-11-17 06:33] LABS: AUTOMATED NEUTROPHIL # 5.2 TH/MM3 (1.8-7.7); BASOPHIL % 0.5 % (0.0-2.0); EOSINOPHIL % 0.6 % (0.0-4.0); LYMPH % 14.7 % (9.0-44.0); MEAN CELL VOLUME 73.4 FL (80.0-100.0); MEAN CORPUSCULAR HEMOGLOBIN 22.9 PG (27.0-34.0); MEAN CORPUSCULAR HGB CONC 31.2 % (32.0-36.0); MONO % 6.1 % (0.0-8.0); NEUT % 78.1 % (16.0-70.0); PLATELET COUNT 426 TH/MM3 (150-450); RED BLOOD COUNT 3.81 MIL/MM3 (4.50-5.90); RED CELL DISTRIBUTION WIDTH 21.9 % (11.6-17.2); WHITE BLOOD COUNT 6.6 TH/MM3 (4.0-11.0)
[2016-11-17 06:39] LABS: HEMO FLAGS DIFF FINAL
[2016-11-17 06:49] LABS: INTERNATIONAL NORMALIZED RATIO 2.5 RATIO; PROTHROMBIN TIME - PATIENT 28.3 SEC (9.8-11.6)
[2016-11-17 06:50] LABS: AMYLASE 59 U/L (25-115)
[2016-11-17 07:09] LABS: SCAN/DIFF AUTO DIFF CONFIRMED
[2016-11-17 08:00] VITALS: BP 127/105; PULSE 101; RESP 20; TEMP 97.2; O2SAT 98
--- NOTE | 2016-11-17 08:35 | HHI.PR ---
Subjective Remarks Alert, oriented, complaining of mild discomfort right hip, continues to have cough and wheezing however less trouble breathing No NVD. Objective Objective Results - Vital Signs Date Time Temp Pulse Resp B/P Pulse Ox O2 Delivery O2 Flow Rate FiO2 11/17/16 08:00 97.2 101 20 127/105 98 11/16/16 20:33 97.8 108 20 140/92 97 11/16/16 20:14 97 21 11/16/16 09:42 18 11/16/16 09:19 96 21 I/O 11/16/16 11/16/16 11/16/16 11/17/16 11/17/16 11/17/16 07:00 15:00 23:00 07:00 15:00 23:00 Intake Total 480 ml 1230 ml 0 ml Output Total 500 ml 1000 ml Balance -20 ml 230 ml 0 ml Intake Oral 480 ml 1080 ml IV Total 150 ml 0 ml Output Urine Total 500 ml 1000 ml # Voids 6 # Bowel Movements 0 0 Result Diagram: 11/17/16 0605 11/16/16 0810 Other Results Laboratory Tests Test 11/17/16 06:05 White Blood Count 6.6 Red Blood Count 3.81 Hemoglobin 8.7 Hematocrit 28.0 Mean Corpuscular Volume 73.4 Mean Corpuscular Hemoglobin 22.9 Mean Corpuscular Hemoglobin 31.2 Concent Red Cell Distribution Width 21.9 Platelet Count 426 Mean Platelet Volume 6.5 Neutrophils (%) (Auto) 78.1 Lymphocytes (%) (Auto) 14.7 Monocytes (%) (Auto) 6.1 Eosinophils (%) (Auto) 0.6 Basophils (%) (Auto) 0.5 Neutrophils # (Auto) 5.2 Lymphocytes # (Auto) 1.0 Monocytes # (Auto) 0.4 Eosinophils # (Auto) 0.0 Basophils # (Auto) 0.0 CBC Comment DIFF FINAL Differential Comment AUTO DIFF CONFIRMED Prothrombin Time 28.3 Prothromb Time International 2.5 Ratio Amylase Level 59 Lipase 153 ROS General: No: Fatigue, Weakness, Other HEENT: No: Sore Throat, Dysphagia, Other Cardiac: No: Chest Pain, Edema, Palpitations, Other Pulmonary: No: Cough, SOB, Wheezing, Other GI: No: Abdominal Pain, BM, Diarrhea, N/V, Other /LINE FIXER: No: Dysuria, Urgency, Other Neuro/MS: Other (right hip pain.) Psych: No: Anxiety, Depression, Other Skin: No: Itching, Rash, Other Physical Exam Physical Exam PHYSICAL EXAMINATION GENERAL: This is a well-developed, well-nourished male who appears to be in no acute distress. He is alert and awake. HEAD: Normocephalic without any lesion or mass noted. . EYES: [place], Normal eye movement, no icterus. OROPHARYNGEAL: Oropharynx without erythema or edema. MOUTH/THROAT: Moist oral mucosa. NECK: Supple. Trachea midline without deviation. CARDIAC: Regular rhythm, regular rate, S1 and S2 are heard. LUNGS: Clear to auscultation bilaterally. Rhonchi+. ABDOMEN: Soft, non tender, no organomegaly or masses. Bowel sounds are heard in all four quadrants. No rebound. No guarding. EXTREMITIES: no CCE. NEUROLOGICAL: No focal deficits. SKIN:Warm and moist PSYCH: Mood and affect appropriate DVT PROPHYLAXIS: COUMADIN PUD PROPHYLAXIS: PPI A/P Assessment and Plan Assessment COPD exacerbation Right hip fungal infection Right hip seroma Status post right hip drainage Depression Anxiety Right hip pain RUQ abd pain: r/o cholecystitis. Status post upper endoscopy on 11/14/16 New diagnosis of distal esophagitis Significant history for pulmonary embolism and right lower extremity DVT hypokalemia Management Supplemental oxygen Steroids bronchodilators Protonix Antibiotics per ID On micafungin until 11/20/16 Coumadin, titrate to keep INR 2-3 Potassium better s/p replacement. monitor. Reviewed US GB report: no cholecystitis/cholelithiasis. Pain control Discussed with patient Discussed with nurse Socorro Sosa MD Nov 17, 2016 08:35
[2016-11-17] MEDS: RESP: ALBUTEROL 2.5 MG/IPRATROPIUM 0.5 MG NEB (PRN) NEB (08:49)
[2016-11-17 08:51] VITALS: O2SAT 98
[2016-11-17] MEDS: ONDANSETRON HCL 4 MG/2 ML VIAL IV PUSH PRN ×2 (09:43→16:53)
[2016-11-17] MEDS: BUDESONIDE-FORMOTEROL 160/4.5 MCG INHALER INH SCH ×2 (09:43→21:00)
[2016-11-17] MEDS: DOCUSATE SODIUM 100 MG CAP PO SCH ×2 (09:44→21:10)
[2016-11-17] MEDS: predniSONE 10 MG TAB PO SCH ×2 (09:44→21:10)
[2016-11-17] MEDS: LORazepam 0.5 MG TAB PO SCH ×2 (09:44→21:10)
[2016-11-17] MEDS: FUROSEMIDE 40 MG TAB PO SCH ×2 (09:44→16:54)
[2016-11-17] MEDS: POTASSIUM CHLORIDE 10 MEQ CONTROLLED RELEASE TAB PO SCH ×2 (09:44→21:10)
[2016-11-17] MEDS: POLYETHYLENE GLYCOL 17 GM PKG PO SCH (09:44)
[2016-11-17] MEDS: PANTOPRAZOLE SOD 40 MG DELAYED RELEASE TAB PO SCH (09:44)
[2016-11-17] MEDS: FLUCONAZOLE 200 MG TAB PO SCH (09:44)
[2016-11-17] MEDS: ACETAMINOPHEN/HYDROcodone 325 MG/7.5 MG TAB PO PRN (09:45)
[2016-11-17] MEDS: DILTIAZEM-CD 180 MG CAP ER PO SCH (09:45)
[2016-11-17 14:52] VITALS: BP 155/100; PULSE 135; RESP 22; TEMP 98.6; O2SAT 99
--- NOTE | 2016-11-17 15:57 | RADHPO ---
EXAM DATE/TIME: 11/17/2016 15:40 [facility] COMPARISON: HIP RIGHT (AP&LAT 2/3VWS) W AP PELVIS, November 11, 2016, 19:32. INDICATIONS : Fell , right hip pain MEDICAL HISTORY : Chronic obstructive pulmonary disease. Hypertension SURGICAL HISTORY : Right hip surgery ENCOUNTER: Initial ACUITY: 1 day PAIN SCORE: 10/10 LOCATION: Right hip FINDINGS: Patient has a right bipolar hip arthroplasty. There is a comminuted intertrochanteric and proximal sh aft fracture of the femur with mild medial tilt of the more proximal fracture fragment and including the femoral component. The distal fracture line is oblique, extends through the bone roughly 15 mm pr oximal to the inferior tip of the femoral prosthesis. I don't see a fracture of the hardware itself. CONCLUSION: Right bipolar hip arthroplasty. Comminuted fracture of the proximal femur that includes the bone arou nd the femoral component. Please see above. Adin Kendall MD on November 17, 2016 at 15:52 Board Certified Radiologist. This report was verified electronically.
[2016-11-17] MEDS: MORPHINE SULFATE 4 MG/ML INJ IV PUSH PRN ×2 (16:57→20:49)
[2016-11-17 20:00] VITALS: BP 128/86; PULSE 97; RESP 20; TEMP 97; O2SAT 99
[2016-11-17] MEDS: INSULIN DETEMIR 100 UNITS/ML VIAL SQ SCH (21:00)
[2016-11-17] MEDS: ATORVASTATIN 20 MG TAB PO SCH (21:10)
[2016-11-17] MEDS: MONTELUKAST SODIUM 10 MG TAB PO SCH (21:10)
[2016-11-17] MEDS: MICAFUNGIN INJ 150 MG in SODIUM CHLORIDE 0.9% INJ 100 ML IV SCH (21:11)
[2016-11-17] MEDS ORDERED: PHYTONADIONE 10 MG/ML VIAL SQ ONE (22:00)
[2016-11-18] VITALS (10 sets, daily range): BP systolic 112–152; BP diastolic 68–93; PULSE 71–117; RESP 16–22; TEMP 96.1–100; O2SAT 93–99
[2016-11-18] MEDS: MORPHINE SULFATE 4 MG/ML INJ IV PUSH PRN (03:50)
[2016-11-18] MEDS: ONDANSETRON HCL 4 MG/2 ML VIAL IV PUSH PRN (03:53)
[2016-11-18] MEDS: RESP: ALBUTEROL 2.5 MG/IPRATROPIUM 0.5 MG NEB (PRN) NEB ×2 (04:30→14:37)
[2016-11-18] MEDS: oxyCODONE HCL 20 MG CONTROLLED RELEASE TAB PO SCH (05:51)
[2016-11-18] MEDS: INSULIN ASPART SUPPLEMENTAL SCALE SQ SCH ×4 (05:51→20:50)
[2016-11-18] MEDS: SUCRALFATE 1 GM TAB PO SCH ×3 (05:51→16:47)
[2016-11-18 06:14] LABS: INTERNATIONAL NORMALIZED RATIO 2.9 RATIO; PROTHROMBIN TIME - PATIENT 33.6 SEC (9.8-11.6)
[2016-11-18] MEDS ORDERED: PHYTONADIONE 10 MG/ML VIAL SQ SCH (08:45)
[2016-11-18] MEDS: HYDROmorphone HCL PF 1 MG/ML VIAL IV PRN ×4 (08:46→20:50)
[2016-11-18] MEDS: METHYLNALTREXONE BROMIDE 12 MG/0.6 ML VIAL SQ SCH (08:50)
[2016-11-18] MEDS: POLYETHYLENE GLYCOL 17 GM PKG PO SCH (08:50)
[2016-11-18] MEDS: PANTOPRAZOLE SOD 40 MG DELAYED RELEASE TAB PO SCH (08:51)
[2016-11-18] MEDS: predniSONE 10 MG TAB PO SCH ×2 (08:51→20:41)
[2016-11-18] MEDS: DILTIAZEM-CD 180 MG CAP ER PO SCH (08:52)
[2016-11-18] MEDS: POTASSIUM CHLORIDE 10 MEQ CONTROLLED RELEASE TAB PO SCH ×2 (08:52→20:41)
[2016-11-18] MEDS: FLUCONAZOLE 200 MG TAB PO SCH (08:52)
[2016-11-18] MEDS: FUROSEMIDE 40 MG TAB PO SCH ×2 (08:52→16:47)
[2016-11-18] MEDS: traMADol HCL 50 MG TAB PO PRN ×2 (08:52→15:06)
--- NOTE | 2016-11-18 08:52 | MB ---
cc: JES PUGA DATE OF CONSULTATION 11/18/2016 REASON FOR CONSULTATION Periprosthetic fracture right proximal femur. HISTORY This patient has been in the hospital for the past two months. He has been in and out of the hospital several times in the past year. I saw him for the first time for his hip pain sometime in late June of 2016 at which time he had incision and drainage of the right hip performed for infection. He did not improve. Subsequent studies showed that he had osteomyelitis and therefore we went back in and this time did an excision of the femoral head and introduction of a Prostalac antibiotic-loaded temporary hip replacement. The cultures, however, showed Ghada. He has now been on antifungal medications for close to three months. He has been on Diflucan ever since the second surgery in the first week of August and he has been on micafungin since the last week of August. I saw this patient just last week at the [facility] and he had no pain or symptoms at all into the right hip. He had a good range of motion without any pain and he was ambulating, weightbearing with a walker. PRESENT HISTORY Yesterday he apparently slipped coming out of the shower in his room, after the shower and felt really hard and injured the right hip. X-rays reveal a comminuted periprosthetic fracture of the right proximal femur and therefore he was transferred to [facility] and I was called last night and preoperative workup has been started. PHYSICAL EXAMINATION GENERAL: Exam this morning reveals a painful male. ORTHOPEDIC EXAM: His right hip area is indurated. No open wound infection. No open wounds or drainage. He moves his right foot well. He has palpable pedal pulses. He is in Padilla's traction. X-RAYS X-rays reveal a comminuted fracture of the right proximal femur with a large lesser trochanter fragment, a greater trochanter fragment and a fracture of the tip of the temporary femoral implant. PLAN Probably the best course of action is revision hip replacement and to continue antifungals for about six weeks. The alternative, however, is of a Girdlestone procedure with removal of all the implants and fixation of the fracture with plate or cables and leave him that way until such time as a definitive surgery can be done. This patient has significant risk factors with him being in the hospital for two months for pulmonary issues and high doses of steroids, etc.. He has history of pulmonary embolus. It is, however, important to try to get him ambulating and weightbearing, which would not be possible with the Girdlestone procedure with which he will end up with about 4 inches of shortening and even more and inability to bear weight on it for several months if at all. Alternatives discussed with the patient. He is advised that the main risk of the revision surgery is recurrent infection, either bacterial or fungal and failure of implant and subsequent surgery. The option of Girdlestone, however, will permanently condemn him to a walker and wheelchair and disability. The patient definitely wants the revision surgery with revision hip replacement with the chance of being able to ambulate normally are or minimal assistance. The factors will be further discussed with the patient's and infectious disease specialist. MD PETE Christiansen/MARIA ESTHER /7:01 AM /7:37 AM
[2016-11-18] MEDS: DOCUSATE SODIUM 100 MG CAP PO SCH ×2 (08:53→20:41)
[2016-11-18] MEDS: LORazepam 0.5 MG TAB PO SCH ×2 (08:53→20:41)
[2016-11-18] MEDS: BUDESONIDE-FORMOTEROL 160/4.5 MCG INHALER INH SCH ×2 (08:53→20:42)
[2016-11-18] MEDS: HYDROCORTISONE/PRAMOXINE RECTAL FOAM 10 GM CAN RECTAL SCH ×2 (09:00→16:53)
[2016-11-18] MEDS ORDERED: CHLORHEXIDINE GLUCONATE 4% SOLN 120 ML BTL TOPICAL SCH (09:00)
[2016-11-18 09:49] LABS: INTERNATIONAL NORMALIZED RATIO 2.7 RATIO; PROTHROMBIN TIME - PATIENT 30.7 SEC (9.8-11.6)
[2016-11-18] MEDS ORDERED: ENOXAPARIN SODIUM 30 MG/0.3 ML SYRINGE SQ SCH (10:00)
--- NOTE | 2016-11-18 15:39 | HHI.PR ---
Subjective Remarks no sob no fever or chill no cough or sputum OCCASIONAL WHEEZE fell , right HIP FX Objective Vital Signs Date Time Temp Pulse Resp B/P Pulse Ox O2 Delivery O2 Flow Rate FiO2 11/18/16 14:40 99 Nasal Cannula 2.00 11/18/16 12:00 97.2 111 16 138/93 96 11/18/16 08:00 97.1 112 16 137/81 98 11/18/16 04:31 98 Nasal Cannula 3.00 11/18/16 02:44 Nasal Cannula 2.00 11/18/16 00:00 97.4 97 22 130/91 98 11/17/16 20:00 97.0 97 20 128/86 99 11/17/16 17:57 18 11/17/16 17:13 18 I/O 11/17/16 11/17/16 11/17/16 11/18/16 11/18/16 11/18/16 07:00 15:00 23:00 07:00 15:00 23:00 Intake Total 0 ml 650 ml Output Total 500 ml Balance 0 ml 650 ml -500 ml Intake Oral 650 ml IV Total 0 ml Output Urine Total 500 ml # Voids 6 Result Diagram: 11/17/16 0605 11/16/16 0810 Objective Remarks GENERAL: SKIN: Warm and dry. HEAD: Atraumatic. Normocephalic. EYES: Pupils equal and round. No scleral icterus. No injection or drainage. ENT: No nasal bleeding or discharge. Mucous membranes pink and moist. NECK: Trachea midline. No JVD. CARDIOVASCULAR: Regular rate and rhythm. RESPIRATORY: No accessory muscle use. Clear to auscultation. Breath sounds equal bilaterally. GASTROINTESTINAL: Abdomen soft, non-tender, nondistended. Hepatic and splenic margins not palpable. MUSCULOSKELETAL: Extremities without clubbing, cyanosis, or edema. No obvious deformities. NEUROLOGICAL: Awake and alert. No obvious cranial nerve deficits. Motor grossly within normal limits. Five out of 5 muscle strength in the arms and legs. Normal speech. PSYCHIATRIC: Appropriate mood and affect; insight and judgment normal. Assessment and Plan Assessment and Plan pulm improving with occasional wheeze DVT/PE ON COUMADIN HIP fx plan ContIinue O2 therapy INCREASE ACTIVITY bronchodilators taper steroids as tolerated Mary Hernandez MD Nov 18, 2016 15:39
[2016-11-18] MEDS ORDERED: WARFARIN SOD 2 MG TAB PO SCH (16:00)
--- NOTE | 2016-11-18 17:52 | HHI.IDPN ---
Subjective Subjective Remarks Chart reviewed Pt well knownto me from previous hospitalisations He has h/o C.albicans R prosthetic hip infx and is on micafungin+ fluconazol tx and also has refractory asthma requiring constant high dose steroid tx He was about to complet his 3 mo tx for his fungal infx when he fell and fractured his hip this w/k X ray showed periprosthetic fx and his orthopedist Dr Lynn is taking him to sx Wed Pt co on severe pain inthe R hip and thigh He states he had just mild pain prior to his fall afebrile X ray showed R hip bipolar prosthesis and comminuted fx of femoral component Antibiotics Micafungin Diflucan Lines PICC RUE Past Medical History DVT right lower extremity Pulmonary embolism Asthma Hyperlipidemia Past Surgical History Previous hip surgery Recent right surgery, has Abx spacer, August 09, 2016 Allergies: Coded Allergies: Tetracycline (Verified Allergy, Severe, throat swells, 09/29/16) Demerol (Verified Allergy, Intermediate, hallucinations, 09/29/16) Objective . Vital Signs Date Time Temp Pulse Resp B/P Pulse Ox O2 Delivery O2 Flow Rate FiO2 11/18/16 14:40 99 Nasal Cannula 2.00 11/18/16 12:00 97.2 111 16 138/93 96 11/18/16 08:00 97.1 112 16 137/81 98 11/18/16 04:31 98 Nasal Cannula 3.00 11/18/16 02:44 Nasal Cannula 2.00 11/18/16 00:00 97.4 97 22 130/91 98 11/17/16 20:00 97.0 97 20 128/86 99 11/17/16 17:57 18 11/17/16 11/17/16 11/18/16 15:00 23:00 07:00 Intake Total 650 ml Balance 650 ml Intake Oral 650 ml . Laboratory Tests Test 11/17/16 06:05 White Blood Count 6.6 TH/MM3 Red Blood Count 3.81 MIL/MM3 Hemoglobin 8.7 GM/DL Hematocrit 28.0 % Mean Corpuscular Volume 73.4 FL Mean Corpuscular Hemoglobin 22.9 PG Mean Corpuscular Hemoglobin 31.2 % Concent Red Cell Distribution Width 21.9 % Platelet Count 426 TH/MM3 Mean Platelet Volume 6.5 FL Neutrophils (%) (Auto) 78.1 % Lymphocytes (%) (Auto) 14.7 % Monocytes (%) (Auto) 6.1 % Eosinophils (%) (Auto) 0.6 % Basophils (%) (Auto) 0.5 % Neutrophils # (Auto) 5.2 TH/MM3 Lymphocytes # (Auto) 1.0 TH/MM3 Monocytes # (Auto) 0.4 TH/MM3 Eosinophils # (Auto) 0.0 TH/MM3 Basophils # (Auto) 0.0 TH/MM3 CBC Comment DIFF FINAL Differential Comment AUTO DIFF CONFIRMED Laboratory Tests Test 11/17/16 06:05 Amylase Level 59 U/L Lipase 153 U/L Imaging Last Impressions Gall Bladder Ultrasound 11/16/16 0000 Signed Impressions: Service Date/Time: Wednesday, November 16, 2016 17:59 - CONCLUSION: Liver is mildly fatty infiltrated. Trace sludge in the gallbladder. Otherwise within normal limits. Adin Kendall MD Chest X-Ray 11/12/16 0000 Signed Impressions: Service Date/Time: Saturday, November 12, 2016 12:56 - CONCLUSION: No acute disease. Davion Carranza MD Abdomen/Pelvis CT 11/12/16 0000 Signed Impressions: Service Date/Time: Saturday, November 12, 2016 08:59 - CONCLUSION: 1. Wall thickening along the lateral cecum. Colonoscopy may be warranted. No acute inflammatory process. 2. No renal calculi or hydronephrosis. 3. Copious amount of stool throughout the large bowel. Davion Carranza MD Hip and Pelvis X-Ray 11/11/16 0000 Signed Impressions: Service Date/Time: Friday, November 11, 2016 19:32 - CONCLUSION: No acute radiographic abnormality right bipolar hip arthroplasty. Adin Kendall MD Pelvis CT 10/07/16 0000 Signed Impressions: Service Date/Time: Friday, October 07, 2016 16:45 - CONCLUSION: Stable fluid collection posterior to a total right hip prosthesis. Abdirashid Diaz MD Hip MRI 10/02/16 0000 Signed Impressions: Service Date/Time: Sunday, October 02, 2016 09:13 - CONCLUSION: 12 cm collection in the right hip and buttock region, likely hematoma/seroma. The lesion could certainly be drained or sampled without difficulty under CT guidance. Adin Guillermo MD Hip Aspiration/Injection 10/01/16 0000 Signed Impressions: Service Date/Time: Saturday, October 01, 2016 13:44 - CONCLUSION: Uncomplicated aspiration as above. Félix Oneil MD Lower Extremity Ultrasound 09/29/16 0000 Signed Impressions: Service Date/Time: Thursday, September 29, 2016 18:02 - CONCLUSION: 1. Hypoechoic areas with measurements above subjacent and anterior to the right hip incision line. 2. Findings are nonspecific but likely represent resolving hematoma/seroma. Abscess cannot be completely excluded. Please correlate with clinical presentation. Russ Morrison MD Physical Exam GENERAL: awake and alert, not in any respiratory distress SKIN: Cool and dry. No generalized rash or ecchymosis. HEENT: [place] conjunctivae. No scleral icterus. No injection or drainage. Moist oral mucosa. NECK: Trachea midline. No JVD or lymphadenopathy. Supple, nontender, no meningeal signs. CARDIOVASCULAR: Regular rate and rhythm without murmurs, gallops, or rubs. RESPIRATORY: Breath sounds equal bilaterally. Clear to auscultation GASTROINTESTINAL: Abdomen globular, slightly distended, non-tender. Bowel sounds are present and normoactive. No guarding no rebound. No organomegaly. MUSCULOSKELETAL: Has a well-healed incision on the right lateral thigh. skin indurated and edematous around incision. . Has markedly decreased range of motion in the right hip joint Entire R thigh is mildly tender to palpation and has mild edema NEUROLOGICAL: grossly non-focal PSYCH: Normal affect, calm and cooperative Assessment & Plan Remarks IMPRESSION Osteoporosis 2/2 chjhronic high dose sterroid use Ghada R prosthetic hip infection, healed and responded to antifungal clinically, however now with periprosthetic femur fracture Severe asthma, with exacerbation Hx DVT RLE and PE RECOMMENDATION Continue Diflucan Continue Micafungin No stop dates Complete prosthesis explantation will be the best option to achive cure if feasible WIll suggest to obtaine multiple (4 sets) of intraop cultures and further tx to be taylored per clArturo Holland Dr, Alexandra A. MD Nov 18, 2016 17:52
--- NOTE | 2016-11-18 19:00 | HHI.PR ---
Subjective History of Present Illness chart reviewed pt seen & Examined S/P FALL , periprosthetic femur fx c/o thigh pain, pain meds are helping some breathing is much better No cough or sputum No cp No fever or chills No abd pain No melena or BRBPR Offers no other c/o is at bedside Review of Systems Constitutional Constitutional: Fatigue, Weakness Pulmonary Respiratory: Shortness of Breath, Wheezing Vitals/Results Intake & Output 11/17/16 11/17/16 11/18/16 15:00 23:00 07:00 Intake Total 650 ml Balance 650 ml Intake Oral 650 ml Vital Signs Vital Signs Date Time Temp Pulse Resp B/P Pulse Ox O2 Delivery O2 Flow Rate FiO2 11/18/16 14:40 99 Nasal Cannula 2.00 11/18/16 12:00 97.2 111 16 138/93 96 11/18/16 08:00 97.1 112 16 137/81 98 11/18/16 04:31 98 Nasal Cannula 3.00 11/18/16 02:44 Nasal Cannula 2.00 11/18/16 00:00 97.4 97 22 130/91 98 11/17/16 20:00 97.0 97 20 128/86 99 CBC/BMP: 11/17/16 0605 11/16/16 0810 Lab Results Laboratory Tests Test 11/18/16 11/18/16 11/18/16 05:55 09:23 16:57 Prothrombin Time 33.6 SEC 30.7 SEC Prothromb Time International 2.9 RATIO 2.7 RATIO Ratio Blood Bank Comment Physical Exam General General Appearance: Well Developed, Well Nourished, No Acute Distress, Anxious , Obese Eyes Eye Exam: Pupils Equal, Sclera White, Extraocular Movement Intact Ears & Nose Ears & Nose Exam: Nasal Mucosa [place] Throat Throat Exam: Oral Mucosa [place] & Moist Neck Neck Exam: Neck Supple, Trachea Midline Pulmonary Resp Exam: Clear Bilaterally, Breath Sounds Equal, No Distress Cardiology CV Exam: Regular, Normal Sinus Rhythm Gastrointestinal/Abdomen GI Exam: Soft, Non-Tender, Bowel Sounds Present, Positive Bowel Movement Musculoskeletal MS Remarks Swelling /tender R thigh in traction Integumentary Skin Exam: Warm, Dry Extremeties Extremities Exam: No Edema Neurologic Neuro Exam: Alert, Awake, Oriented, Speech Clear, Moving All Extremities Psychiatric Psych Exam: Appropriate Responses PUD Prophylasis PUD Prophylaxis: Protonix Assessment/Plan Assessment/Plan Assessment s/p COPD exacerbation severe advance stage asthma Right hip prosthetic joint /fungal infection Right hip seroma Status post right hip drainage Depression MELIZA/ severe Anxiety acute on chronic Right hip pain Status post upper endoscopy on 11/14/16 New diagnosis of distal esophagitis history for pulmonary embolism and right lower extremity DVT s/p fall R periprosthetic comminuted Fx Management Supplemental oxygen Steroids bronchodilators Protonix Antibiotics per ID/ On micafungin until 11/20/16 Dr maddox's input noted for surgery on fri Coumadin on hold Vit K given , f/u INR may use L sq lovenox for Bridging Pain control Discussed with patient & hsi at bedside will f/u Alvin Sandoval MD Nov 18, 2016 19:00
[2016-11-18] MEDS: ACETAMINOPHEN/HYDROcodone 325 MG/10 MG TAB PO PRN ×2 (19:11→23:02)
[2016-11-18] MEDS: MONTELUKAST SODIUM 10 MG TAB PO SCH (20:41)
[2016-11-18] MEDS: ATORVASTATIN 20 MG TAB PO SCH (20:41)
[2016-11-18] MEDS: INSULIN DETEMIR 100 UNITS/ML VIAL SQ SCH (20:50)
[2016-11-18] MEDS: MICAFUNGIN INJ 150 MG in SODIUM CHLORIDE 0.9% INJ 100 ML IV SCH (22:45)
[2016-11-19] VITALS (10 sets, daily range): BP systolic 125–144; BP diastolic 77–94; PULSE 90–116; RESP 16–21; TEMP 96–97.8; O2SAT 96–100
[2016-11-19] MEDS: HYDROCORTISONE/PRAMOXINE RECTAL FOAM 10 GM CAN RECTAL SCH ×3 (00:33→17:00)
[2016-11-19] MEDS: HYDROmorphone HCL PF 1 MG/ML VIAL IV PRN ×5 (00:36→20:37)
[2016-11-19] MEDS: ONDANSETRON HCL 4 MG/2 ML VIAL IV PUSH PRN ×2 (00:43→16:39)
[2016-11-19] MEDS: ACETAMINOPHEN/HYDROcodone 325 MG/10 MG TAB PO PRN ×5 (02:42→22:43)
[2016-11-19] MEDS: SUCRALFATE 1 GM TAB PO SCH ×3 (06:07→17:02)
[2016-11-19] MEDS: INSULIN ASPART SUPPLEMENTAL SCALE SQ SCH ×4 (06:27→21:03)
[2016-11-19 06:57] LABS: MEAN CELL VOLUME 71.5 FL (80.0-100.0); MEAN CORPUSCULAR HEMOGLOBIN 22.6 PG (27.0-34.0); MEAN CORPUSCULAR HGB CONC 31.6 % (32.0-36.0); PLATELET COUNT 368 TH/MM3 (150-450); RED BLOOD COUNT 3.36 MIL/MM3 (4.50-5.90); RED CELL DISTRIBUTION WIDTH 22.8 % (11.6-17.2)
[2016-11-19 07:06] LABS: REVIEW FLAG FINAL
[2016-11-19 07:07] LABS: BICARBONATE 32.4 MEQ/L (21.0-32.0); POTASSIUM 3.6 MEQ/L (3.5-5.1)
[2016-11-19] MEDS ORDERED: TRANEXAMIC ACID 1,000 MG/100 ML NS INTRA-OP IV SCH ×2 (08:15)
[2016-11-19] MEDS ORDERED: SODIUM CHLORID 0.9% 500 ML IV SCH (08:45)
[2016-11-19] MEDS ORDERED: METOPROLOL TARTRATE 25 MG TAB PO PRN (08:45)
[2016-11-19] MEDS ORDERED: LACTATED RINGER'S 1000 ML IV SCH (08:45)
[2016-11-19] MEDS ORDERED: INSULIN HUMAN REGULAR 1,000 UNITS/10 ML VIAL SQ PRN (08:45)
[2016-11-19] MEDS: FUROSEMIDE 40 MG TAB PO SCH ×2 (08:50→17:03)
[2016-11-19] MEDS: predniSONE 10 MG TAB PO SCH ×2 (08:50→20:42)
[2016-11-19] MEDS: DOCUSATE SODIUM 100 MG CAP PO SCH ×2 (08:50→20:42)
[2016-11-19] MEDS: LORazepam 0.5 MG TAB PO SCH ×2 (08:50→20:42)
[2016-11-19] MEDS: POTASSIUM CHLORIDE 10 MEQ CONTROLLED RELEASE TAB PO SCH ×2 (08:50→20:42)
[2016-11-19] MEDS: FLUCONAZOLE 200 MG TAB PO SCH (08:50)
[2016-11-19] MEDS: POLYETHYLENE GLYCOL 17 GM PKG PO SCH (08:51)
[2016-11-19] MEDS: DILTIAZEM-CD 180 MG CAP ER PO SCH (08:51)
[2016-11-19] MEDS: PANTOPRAZOLE SOD 40 MG DELAYED RELEASE TAB PO SCH (08:51)
[2016-11-19 08:57] LABS: INTERNATIONAL NORMALIZED RATIO 1.5 RATIO; PROTHROMBIN TIME - PATIENT 17.4 SEC (9.8-11.6)
[2016-11-19] MEDS: BUDESONIDE-FORMOTEROL 160/4.5 MCG INHALER INH SCH ×2 (08:59→20:36)
[2016-11-19] MEDS: RESP: ALBUTEROL 2.5 MG/IPRATROPIUM 0.5 MG NEB (PRN) NEB ×2 (10:52→17:04)
--- NOTE | 2016-11-19 13:52 | HHI.PR ---
Subjective History of Present Illness c/o R thigh painful breathing is much better No cough or sputum No cp No fever or chills No abd pain No melena or BRBPR H/H dropped Offers no other c/o Review of Systems Constitutional Constitutional: Fatigue, Weakness Pulmonary Respiratory: Shortness of Breath, Wheezing Vitals/Results Intake & Output 11/18/16 11/18/16 11/19/16 15:00 23:00 07:00 Intake Total 600 ml 720 ml 480 ml Output Total 1600 ml 200 ml 950 ml Balance -1000 ml 520 ml -470 ml Intake Oral 600 ml 720 ml 480 ml Output Urine Total 1600 ml 200 ml 950 ml # Voids 2 # Bowel Movements 0 0 0 Vital Signs Vital Signs Date Time Temp Pulse Resp B/P Pulse Ox O2 Delivery O2 Flow Rate FiO2 11/19/16 10:55 99 Nasal Cannula 2.00 11/19/16 09:55 17 11/19/16 08:00 96.0 92 16 137/89 100 11/19/16 07:11 Nasal Cannula 2.00 11/19/16 04:08 96.8 94 20 137/84 97 11/19/16 00:45 97.0 95 18 143/94 96 11/19/16 00:03 96.9 90 20 142/77 96 11/18/16 22:30 96.6 106 18 152/92 97 11/18/16 20:09 96.1 103 21 131/82 95 11/18/16 19:52 94 Nasal Cannula 2.00 11/18/16 19:20 97.8 83 18 124/84 95 11/18/16 16:00 96.2 117 16 124/92 93 11/18/16 14:40 99 Nasal Cannula 2.00 CBC/BMP: 11/19/16 0615 11/19/16 0615 Lab Results Laboratory Tests Test 11/18/16 11/19/16 11/19/16 11/19/16 16:57 06:15 08:32 09:00 Blood Bank Comment White Blood Count 8.0 TH/MM3 Red Blood Count 3.36 MIL/MM3 Hemoglobin 7.6 GM/DL Hematocrit 24.0 % Mean Corpuscular Volume 71.5 FL Mean Corpuscular Hemoglobin 22.6 PG Mean Corpuscular Hemoglobin 31.6 % Concent Red Cell Distribution Width 22.8 % Platelet Count 368 TH/MM3 Mean Platelet Volume 6.6 FL Sodium Level 139 MEQ/L Potassium Level 3.6 MEQ/L Chloride Level 97 MEQ/L Carbon Dioxide Level 32.4 MEQ/L Anion Gap 10 MEQ/L Blood Urea Nitrogen 9 MG/DL Creatinine 0.67 MG/DL Estimat Glomerular Filtration 125 ML/MIN Rate Random Glucose 130 MG/DL Calcium Level 9.0 MG/DL Prothrombin Time 17.4 SEC Prothromb Time International 1.5 RATIO Ratio Blood Type O POSITIVE Antibody Screen NEGATIVE Crossmatch Leukocyte-Reduced Red Blood Cells Physical Exam General General Appearance: Well Developed, Well Nourished, No Acute Distress, Anxious , Obese Eyes Eye Exam: Pupils Equal, Sclera White, Extraocular Movement Intact Ears & Nose Ears & Nose Exam: Nasal Mucosa [place] Throat Throat Exam: Oral Mucosa [place] & Moist Neck Neck Exam: Neck Supple, Trachea Midline Pulmonary Resp Exam: Clear Bilaterally, Breath Sounds Equal, No Distress Cardiology CV Exam: Regular, Normal Sinus Rhythm Gastrointestinal/Abdomen GI Exam: Soft, Non-Tender, Bowel Sounds Present, Positive Bowel Movement Musculoskeletal MS Remarks Swelling /tender R thigh in traction Integumentary Skin Exam: Warm, Dry Extremeties Extremities Exam: No Edema Neurologic Neuro Exam: Alert, Awake, Oriented, Speech Clear, Moving All Extremities Psychiatric Psych Exam: Appropriate Responses PUD Prophylasis PUD Prophylaxis: Protonix Assessment/Plan Assessment/Plan Assessment s/p COPD exacerbation severe advance stage asthma Right hip prosthetic joint /fungal infection Right hip seroma Status post right hip drainage Depression MELIZA/ severe Anxiety acute on chronic Right hip pain Status post upper endoscopy on 11/14/16 New diagnosis of distal esophagitis history for pulmonary embolism and right lower extremity DVT s/p fall R periprosthetic comminuted Fx Management Supplemental oxygen Steroids bronchodilators Protonix Antibiotics per ID/ On micafungin & Diflucan For surgery in Am Coumadin on hold Vit K given , f/u INR PRBC transfusion may use L sq lovenox for Bridging Pain control Discussed with patient am labs will f/u Alvin Sandoval MD Nov 19, 2016 13:52 Alvin Sandoval MD Nov 19, 2016 13:52
[2016-11-19] MEDS ORDERED: WARFARIN SOD 1 MG TAB PO SCH (16:00)
--- NOTE | 2016-11-19 19:26 | HHI.PR ---
Subjective Remarks no sob no fever or chill no cough or sputum OCCASIONAL WHEEZE fell , right HIP FX Objective Vital Signs Date Time Temp Pulse Resp B/P Pulse Ox O2 Delivery O2 Flow Rate FiO2 11/19/16 19:22 97 Nasal Cannula 2.00 11/19/16 14:58 17 11/19/16 12:00 96.9 99 16 133/84 99 11/19/16 12:00 96.5 107 16 125/82 99 11/19/16 11:40 96.5 107 16 125/82 99 11/19/16 10:55 99 Nasal Cannula 2.00 11/19/16 08:00 96.0 92 16 137/89 100 11/19/16 07:11 Nasal Cannula 2.00 11/19/16 04:08 96.8 94 20 137/84 97 11/19/16 00:45 97.0 95 18 143/94 96 11/19/16 00:03 96.9 90 20 142/77 96 11/18/16 22:30 96.6 106 18 152/92 97 11/18/16 20:09 96.1 103 21 131/82 95 11/18/16 19:52 94 Nasal Cannula 2.00 I/O 11/18/16 11/18/16 11/18/16 11/19/16 11/19/16 11/19/16 07:00 15:00 23:00 07:00 15:00 23:00 Intake Total 600 ml 720 ml 480 ml 303 ml Output Total 1600 ml 200 ml 950 ml Balance -1000 ml 520 ml -470 ml 303 ml Intake Oral 600 ml 720 ml 480 ml Packed Cells 303 ml Output Urine Total 1600 ml 200 ml 950 ml # Voids 2 # Bowel Movements 0 0 0 Result Diagram: 11/19/1615 11/19/16 0615 Objective Remarks GENERAL: SKIN: Warm and dry. HEAD: Atraumatic. Normocephalic. EYES: Pupils equal and round. No scleral icterus. No injection or drainage. ENT: No nasal bleeding or discharge. Mucous membranes pink and moist. NECK: Trachea midline. No JVD. CARDIOVASCULAR: Regular rate and rhythm. RESPIRATORY: No accessory muscle use. Clear to auscultation. Breath sounds equal bilaterally. GASTROINTESTINAL: Abdomen soft, non-tender, nondistended. Hepatic and splenic margins not palpable. MUSCULOSKELETAL: Extremities without clubbing, cyanosis, or edema. No obvious deformities. NEUROLOGICAL: Awake and alert. No obvious cranial nerve deficits. Motor grossly within normal limits. Five out of 5 muscle strength in the arms and legs. Normal speech. PSYCHIATRIC: Appropriate mood and affect; insight and judgment normal. Assessment and Plan Assessment and Plan pulm improving with occasional wheeze DVT/PE ON COUMADIN HIP fx plan ContIinue O2 therapy INCREASE ACTIVITY bronchodilators taper steroids as tolerated for hip surgery Mary Hernandez MD Nov 19, 2016 19:26
[2016-11-19] MEDS: ATORVASTATIN 20 MG TAB PO SCH (20:42)
[2016-11-19] MEDS: MONTELUKAST SODIUM 10 MG TAB PO SCH (20:42)
[2016-11-19] MEDS: MICAFUNGIN INJ 150 MG in SODIUM CHLORIDE 0.9% INJ 100 ML IV SCH (20:43)
[2016-11-19] MEDS: INSULIN DETEMIR 100 UNITS/ML VIAL SQ SCH (20:43)
[2016-11-19] MEDS: SODIUM CHLORIDE 0.9% FLUSH 5 ML FLUSH IVF PRN (20:44)
[2016-11-20] MEDS: KETOROLAC TROMETHAMINE 30 MG/ML (IVP) VIAL IVP SCH
[2016-11-20] MEDS: INSULIN DETEMIR 100 UNITS/ML VIAL SQ SCH
[2016-11-20 00:05] VITALS: BP 125/91; PULSE 106; RESP 20; TEMP 96.5; O2SAT 98
[2016-11-20] MEDS: HYDROCORTISONE/PRAMOXINE RECTAL FOAM 10 GM CAN RECTAL SCH ×3 (01:11→17:00)
[2016-11-20] MEDS: HYDROmorphone HCL PF 1 MG/ML VIAL IV PRN ×2 (03:32→08:35)
[2016-11-20 04:05] VITALS: BP 150/96; PULSE 106; RESP 20; TEMP 96.2; O2SAT 96
[2016-11-20 06:09] LABS: INTERNATIONAL NORMALIZED RATIO 1.3 RATIO
[2016-11-20 06:14] LABS: AUTOMATED NEUTROPHIL # 6.7 TH/MM3 (1.8-7.7); BASOPHIL % 0.5 % (0.0-2.0); EOSINOPHIL % 0.3 % (0.0-4.0); HEMATOCRIT 27.8 % (39.0-51.0); LYMPH % 10.3 % (9.0-44.0); LYMPHOCYTE # 0.8 TH/MM3 (1.0-4.8); MEAN CELL VOLUME 72.3 FL (80.0-100.0); MEAN CORPUSCULAR HEMOGLOBIN 23.7 PG (27.0-34.0); MEAN CORPUSCULAR HGB CONC 32.7 % (32.0-36.0); NEUT % 80.9 % (16.0-70.0); PLATELET COUNT 385 TH/MM3 (150-450); RED BLOOD COUNT 3.84 MIL/MM3 (4.50-5.90); RED CELL DISTRIBUTION WIDTH 23.7 % (11.6-17.2); WHITE BLOOD COUNT 8.3 TH/MM3 (4.0-11.0)
[2016-11-20 06:21] LABS: HEMO FLAGS AUTO DIFF
[2016-11-20] MEDS: INSULIN ASPART SUPPLEMENTAL SCALE SQ SCH ×4 (07:00→15:44)
[2016-11-20] MEDS: SUCRALFATE 1 GM TAB PO SCH ×3 (07:00→17:00)
[2016-11-20 08:00] VITALS: BP 134/94; PULSE 94; RESP 16; TEMP 96.5; O2SAT 97
[2016-11-20 08:19] LABS: BANDS 3 % (0-6); CORRECTED NUCLEATED RBC 2 /100 WBC (0-0); METAMYELOCYTES 2 % (0-1); NEUTROPHIL # MANUAL DIFF 7.2 TH/MM3 (1.8-7.7); POLYS (SEG NEUTROPHILS) 82 % (16-70); WBC DIFF SAMPLE 100
[2016-11-20 08:21] LABS: PLATELET ESTIMATE SMEAR NORMAL (NORMAL); PLATELET MORPHOLOGY NORMAL (NORMAL); SCAN/DIFF FINAL DIFF MANUAL
[2016-11-20] MEDS ORDERED: ACETAMINOPHEN 1000 MG/100 ML VIAL IV ONE (08:38)
[2016-11-20] MEDS ORDERED: LACTATED RINGER'S 1000 ML INJ 3,000 ML IV ONE (08:38)
[2016-11-20] MEDS ORDERED: ONDANSETRON HCL 4 MG/2 ML VIAL IV PUSH ONE (08:38)
[2016-11-20] MEDS ORDERED: PROPOFOL 200 MG/20 ML AMP IV ONE (08:38)
[2016-11-20] MEDS ORDERED: NORMOSOL R INJ 2,000 ML IV ONE (08:38)
[2016-11-20] MEDS: POLYETHYLENE GLYCOL 17 GM PKG PO SCH (09:00)
[2016-11-20] MEDS: FLUCONAZOLE 200 MG TAB PO SCH (09:00)
[2016-11-20] MEDS: LORazepam 0.5 MG TAB PO SCH ×2 (09:00→21:00)
[2016-11-20] MEDS: POTASSIUM CHLORIDE 10 MEQ CONTROLLED RELEASE TAB PO SCH ×2 (09:00→21:00)
[2016-11-20] MEDS: BUDESONIDE-FORMOTEROL 160/4.5 MCG INHALER INH SCH ×2 (09:00→21:00)
[2016-11-20] MEDS: FUROSEMIDE 40 MG TAB PO SCH ×2 (09:00→18:00)
[2016-11-20] MEDS: DILTIAZEM-CD 180 MG CAP ER PO SCH (09:00)
[2016-11-20] MEDS: METHYLNALTREXONE BROMIDE 12 MG/0.6 ML VIAL SQ SCH (09:00)
[2016-11-20] MEDS: predniSONE 10 MG TAB PO SCH ×2 (09:00→21:00)
[2016-11-20] MEDS: PANTOPRAZOLE SOD 40 MG DELAYED RELEASE TAB PO SCH (09:00)
[2016-11-20] MEDS ORDERED: RESP: ALBUTEROL 2.5 MG/3 ML NEB (PRN) ONE (10:38)
[2016-11-20] MEDS ORDERED: methylPREDNISolone SOD SUCC 125 MG/2 ML VIAL ONE ×2 (10:39→20:08)
[2016-11-20] MEDS ORDERED: GENTAMICIN SULFATE 80 MG/2 ML VIAL ONE (12:46)
[2016-11-20] MEDS: ACETAMINOPHEN/HYDROcodone 325 MG/10 MG TAB PO PRN (14:29)
[2016-11-20 15:34] VITALS: O2SAT 98
[2016-11-20] MEDS: RESP: ALBUTEROL 2.5 MG/IPRATROPIUM 0.5 MG NEB (PRN) NEB ×2 (15:34→23:46)
--- NOTE | 2016-11-20 15:45 | HHI.PR ---
Subjective Subjective Remarks resting in bed back from OR, pending equipment down alert, rt. hip traction on. in rm No SOB Review of Systems Constitutional Constitutional: Fatigue, Weakness Constitutional Remarks 10 point ROS done. positives noted with rt. hip, generalized weakness, other systems unremarkable Pulmonary Respiratory: Shortness of Breath, Wheezing Musculoskeletal MS: Weakness MS Remarks rt hip fx Psychiatric Psychiatric: Normal Mood Vitals/Results Intake & Output 11/19/16 11/19/16 11/20/16 15:00 23:00 07:00 Intake Total 303 ml 1320 ml 0 ml Output Total 2400 ml 1425 ml Balance 303 ml -1080 ml -1425 ml Intake Oral 1320 ml 0 ml Packed Cells 303 ml Output Urine Total 2400 ml 1425 ml # Bowel Movements 0 0 Vital Signs Vital Signs Date Time Temp Pulse Resp B/P Pulse Ox O2 Delivery O2 Flow Rate FiO2 11/20/16 15:34 98 Nasal Cannula 2.00 11/20/16 08:00 96.5 94 16 134/94 97 11/20/16 04:05 96.2 106 20 150/96 96 11/20/16 00:05 96.5 106 20 125/91 98 11/19/16 20:06 97.8 94 21 138/85 98 11/19/16 19:22 97 Nasal Cannula 2.00 11/19/16 16:00 96.8 116 16 144/89 98 CBC/BMP: 11/20/16 0530 11/19/16 0615 Lab Results Laboratory Tests Test 11/20/16 05:30 White Blood Count 8.3 TH/MM3 Red Blood Count 3.84 MIL/MM3 Hemoglobin 9.1 GM/DL Hematocrit 27.8 % Mean Corpuscular Volume 72.3 FL Mean Corpuscular Hemoglobin 23.7 PG Mean Corpuscular Hemoglobin 32.7 % Concent Red Cell Distribution Width 23.7 % Platelet Count 385 TH/MM3 Mean Platelet Volume 6.9 FL Neutrophils (%) (Auto) 80.9 % Lymphocytes (%) (Auto) 10.3 % Monocytes (%) (Auto) 8.0 % Eosinophils (%) (Auto) 0.3 % Basophils (%) (Auto) 0.5 % Neutrophils # (Auto) 6.7 TH/MM3 Lymphocytes # (Auto) 0.8 TH/MM3 Monocytes # (Auto) 0.7 TH/MM3 Eosinophils # (Auto) 0.0 TH/MM3 Basophils # (Auto) 0.0 TH/MM3 CBC Comment AUTO DIFF Differential Total Cells 100 Counted Neutrophils % (Manual) 82 % Band Neutrophils % 3 % Lymphocytes % 10 % Monocytes % 3 % Neutrophils # (Manual) 7.2 TH/MM3 Metamyelocytes 2 % Nucleated Red Blood Cells 2 /100 WBC Differential Comment FINAL DIFF MANUAL Platelet Estimate NORMAL Platelet Morphology Comment NORMAL Prothrombin Time 14.0 SEC Prothromb Time International 1.3 RATIO Ratio Physical Exam General General Appearance: Well Developed, Well Nourished, No Acute Distress, Anxious , Obese Eyes Eye Exam: Pupils Equal, Sclera White, Extraocular Movement Intact Ears & Nose Ears & Nose Exam: Nasal Mucosa [place] Throat Throat Exam: Oral Mucosa [place] & Moist Neck Neck Exam: Neck Supple, Trachea Midline Pulmonary Resp Exam: Clear Bilaterally, Breath Sounds Equal, No Distress Cardiology CV Exam: Regular, Normal Sinus Rhythm Gastrointestinal/Abdomen GI Exam: Soft, Non-Tender, Bowel Sounds Present, Positive Bowel Movement Integumentary Skin Exam: Warm, Dry Extremeties Extremities Exam: No Edema Neurologic Neuro Exam: Alert, Awake, Oriented, Speech Clear, Moving All Extremities Psychiatric Psych Exam: Appropriate Responses PUD Prophylasis PUD Prophylaxis: Protonix Assessment/Plan Assessment/Plan Assessment s/p COPD exacerbation severe advance stage asthma Right hip prosthetic joint /fungal infection Right hip seroma Status post right hip drainage Depression MELIZA/ severe Anxiety acute on chronic Right hip pain Status post upper endoscopy on 11/14/16 New diagnosis of distal esophagitis history for pulmonary embolism and right lower extremity DVT s/p fall R periprosthetic comminuted Fx Management vital signs reviewedm, afebrile, other checks stable labs reviewed, hgb 9.1, stable, monitor post op. Supplemental oxygen Steroids , probable cause of mild hyperglycemia bronchodilators, no acute SOB today. Protonix, PUD prophylaxis Antibiotics per ID/ On micafungin & Diflucan Rt. hip surgery today, equipment down in OR, but now coming back to get him. NPO all day Coumadin on hold PRBC transfusion may use L sq lovenox for Bridging Pain management Discussed with patient and d/w Dr. Sandoval, patient seen on his behalf Yulisa Watkins Nov 20, 2016 15:45
[2016-11-20 16:00] VITALS: BP 142/94; PULSE 115; RESP 16; TEMP 97.4; O2SAT 99
[2016-11-20] MEDS ORDERED: ceFAZolin 2 GM PREMIX 50 ML ONE (16:00)
[2016-11-20] MEDS ORDERED: VANCOMYCIN HCL 1000 MG VIAL ONE (16:01)
[2016-11-20] MEDS ORDERED: SODIUM CHLOR 0.9% 250 ML INJ 250 ML ONE (16:01)
[2016-11-20] MEDS ORDERED: MIDAZOLAM HCL 2 MG/2 ML VIAL ONE (16:10)
[2016-11-20 16:11] LABS: INTERNATIONAL NORMALIZED RATIO 1.1 RATIO; PROTHROMBIN TIME - PATIENT 12.2 SEC (9.8-11.6)
[2016-11-20] MEDS ORDERED: HYDROmorphone HCL PF 2 MG/ML VIAL ONE (16:36)
[2016-11-20] MEDS: VORICONAZOLE 200 MG OTHER SCH ×2 (17:07→20:02)
[2016-11-20] MEDS ORDERED: TRANEXAMIC ACID 1,000 MG/100 ML NS INTRA-OP IV SCH ×2 (17:30)
[2016-11-20] MEDS ORDERED: fentaNYL CITRATE 250 MCG/5 ML AMP ONE ×4 (18:21→21:58)
[2016-11-20 18:36] LABS: BLOOD GAS BASE EXCESS -0.2 mmol/L (-2-2); BLOOD GAS CARBOXYHEMOGLOBIN 2.1 % (0-4); BLOOD GAS HCO3 24 mmol/L (22-26); BLOOD GAS METHEMOGLOBIN 1.1 % (0-2); BLOOD GAS O2 HGB SATURATION 97 % (90-100); BLOOD GAS OXYGEN CONTENT 14.1 Vol % (12.0-20.0); BLOOD GAS PCO2 42 mmHg (38-42); BLOOD GAS PO2 237 mmHg (61-120); CRITICAL VALUE NO; FIO2 70 %; OXYGEN DEVICE O.R. ABG; STAT YES; TEMP CORR TO 98.6
[2016-11-20 19:31] LABS: HEMATOCRIT 22.8 % (39.0-51.0); MEAN CORPUSCULAR HEMOGLOBIN 22.6 PG (27.0-34.0); MEAN CORPUSCULAR HGB CONC 31.3 % (32.0-36.0); PLATELET COUNT 336 TH/MM3 (150-450); RED BLOOD COUNT 3.16 MIL/MM3 (4.50-5.90); RED CELL DISTRIBUTION WIDTH 23.6 % (11.6-17.2); WHITE BLOOD COUNT 8.5 TH/MM3 (4.0-11.0)
[2016-11-20 19:33] LABS: REVIEW FLAG FINAL
[2016-11-20] MEDS: MICAFUNGIN INJ 150 MG in SODIUM CHLORIDE 0.9% INJ 100 ML IV SCH (20:00)
[2016-11-20 20:34] LABS: BLOOD GAS BASE EXCESS 0.6 mmol/L (-2-2); BLOOD GAS CARBOXYHEMOGLOBIN 2.3 % (0-4); BLOOD GAS HCO3 25 mmol/L (22-26); BLOOD GAS METHEMOGLOBIN 1.5 % (0-2); BLOOD GAS O2 HGB SATURATION 96 % (90-100); BLOOD GAS OXYGEN CONTENT 10.7 Vol % (12.0-20.0); BLOOD GAS PCO2 41 mmHg (38-42); BLOOD GAS PO2 247 mmHg (61-120); BLOOD GAS TOTAL HGB 7.5 G/DL (12.0-16.0); CRITICAL VALUE NO; FIO2 71 %; OXYGEN DEVICE O.R. ABG; TEMP CORR TO 98.6
[2016-11-20 20:35] LABS: STAT YES
[2016-11-20 20:38] LABS: BLOOD GAS BASE EXCESS -2.8 mmol/L (-2-2); BLOOD GAS HCO3 21 mmol/L (22-26); BLOOD GAS METHEMOGLOBIN 1.1 % (0-2); BLOOD GAS O2 HGB SATURATION 97 % (90-100); BLOOD GAS OXYGEN CONTENT 13.8 Vol % (12.0-20.0); BLOOD GAS PCO2 36 mmHg (38-42); BLOOD GAS PO2 276 mmHg (61-120); BLOOD GAS TOTAL HGB 9.7 G/DL (12.0-16.0); CRITICAL VALUE NO; FIO2 70 %; OXYGEN DEVICE O.R. ABG; STAT YES; TEMP CORR TO 98.6
[2016-11-20] MEDS: ATORVASTATIN 20 MG TAB PO SCH (21:00)
[2016-11-20] MEDS: MONTELUKAST SODIUM 10 MG TAB PO SCH (21:00)
[2016-11-20] MEDS ORDERED: RESP: ALBUTEROL 2.5 MG/3 ML NEB (SCH) ONE (21:32)
[2016-11-20] MEDS ORDERED: DEXT 5%-NACL 0.9% 1000 ML INJ 1,000 ML IV SCH (21:42)
[2016-11-20] MEDS ORDERED: TRANEXAMIC ACID INJ 940 MG in SODIUM CHLORIDE 0.9% INJ 100 ML IV SCH (21:45)
[2016-11-20] MEDS ORDERED: Post-op Orders (for Pharmacy) MISC XX ONE (21:45)
[2016-11-20] MEDS ORDERED: traMADol HCL 50 MG TAB PO PRN (21:45)
[2016-11-20] MEDS ORDERED: ONDANSETRON HCL 4 MG/2 ML VIAL IVP PRN (21:45)
[2016-11-20] MEDS ORDERED: diphenhydrAMINE HCL 50 MG/ML VIAL IV PRN (21:45)
[2016-11-20] MEDS ORDERED: SODIUM CHLORIDE 0.9% FLUSH 5 ML FLUSH IVF PRN (21:45)
[2016-11-20] MEDS ORDERED: NALOXONE HCL 0.4 MG/ML AMP IV PRN ×2 (21:45)
[2016-11-20] MEDS ORDERED: ACETAMINOPHEN/HYDROcodone 325 MG/5 MG TAB PO PRN (21:45)
[2016-11-20] MEDS: PCA - TOTAL MG DILAUDID DELIVERED PER SHIFT OTHER SCH (22:00)
[2016-11-20] MEDS ORDERED: *morphine SULFATE 8 MG/ML PERIprocedure ONLY ONE ×3 (22:10→23:09)
--- NOTE | 2016-11-20 22:35 | RADRPT ---
EXAM DATE/TIME: 11/20/2016 22:03 [facility] COMPARISON: HIP RIGHT (AP&LAT 2/3VWS) WO AP PELVIS, November 17, 2016, 15:40. INDICATIONS : Post op right hip revision. MEDICAL HISTORY : Chronic obstructive pulmonary disease. Hypertension. SURGICAL HISTORY : Right hip surgery. ENCOUNTER: Initial ACUITY: 1 day PAIN SCORE: Non-responsive. LOCATION: Right hip. FINDINGS: The patient is status post right hip revision arthroplasty. Screw backed acetabular component appears well-seated. Femoral component is noted across right proximal femoral fracture operatively stabilize d with cerclage wire and lateral plate and screw fixation. Good alignment at the fracture site. Surgi kevin skin lamar are seen and soft tissue emphysema is noted. CONCLUSION: Postsurgical changes are noted. Trae Cano MD on November 20, 2016 at 22:32 Board Certified Radiologist. This report was verified electronically.
[2016-11-20] MEDS ORDERED: DO NOT ADM ANY ANTICOAGULANT DRUGS XX PRN (23:15)
[2016-11-20 23:16] VITALS: O2SAT 96
[2016-11-20] MEDS: HYDROmorphone HCL PCA 6 MG/30 ML IV SCH (23:45)
[2016-11-21] MEDS: HYDROCORTISONE/PRAMOXINE RECTAL FOAM 10 GM CAN RECTAL SCH ×3 (01:00→17:00)
[2016-11-21 01:43] VITALS: BP 147/96; PULSE 120; RESP 20; TEMP 96.4; O2SAT 98
[2016-11-21 04:05] VITALS: BP 138/89; PULSE 118; RESP 20; TEMP 97.3; O2SAT 97
[2016-11-21] MEDS: CYCLOBENZAPRINE HCL 10 MG TAB PO PRN (04:34)
[2016-11-21] MEDS: PCA - TOTAL MG DILAUDID DELIVERED PER SHIFT OTHER SCH ×3 (06:00→22:00)
[2016-11-21 06:16] LABS: HEMATOCRIT 25.7 % (39.0-51.0); REVIEW FLAG FINAL
[2016-11-21] MEDS: ceFAZolin 2 GM PREMIX 50 ML IV SCH ×3 (06:22→11:25)
[2016-11-21 06:23] LABS: PROTHROMBIN TIME - PATIENT 11.5 SEC (9.8-11.6)
[2016-11-21] MEDS: SUCRALFATE 1 GM TAB PO SCH ×3 (06:34→17:26)
[2016-11-21] MEDS: KETOROLAC TROMETHAMINE 30 MG/ML (IVP) VIAL IVP SCH ×3 (06:34→23:05)
[2016-11-21] MEDS: INSULIN ASPART SUPPLEMENTAL SCALE SQ SCH ×4 (06:35→22:01)
[2016-11-21 06:39] LABS: BICARBONATE 28.6 MEQ/L (21.0-32.0); POTASSIUM 3.9 MEQ/L (3.5-5.1)
--- NOTE | 2016-11-21 07:53 | PD.ORT.PN ---
Subjective Post Op Day #: 1 Pain Scale: ok Subjective Remarks What did you find with my knee. Objective Vitals Vital Signs Date Time Temp Pulse Resp B/P Pulse Ox O2 Delivery O2 Flow Rate FiO2 11/21/16 04:05 97.3 118 20 138/89 97 11/21/16 01:43 96.4 120 20 147/96 98 11/21/16 00:30 98.6 117 14 146/96 98 Nasal Cannula 2 11/21/16 00:00 98.6 119 14 137/83 99 Nasal Cannula 2 11/20/16 23:45 14 11/20/16 23:30 115 14 136/82 99 Nasal Cannula 2 11/20/16 23:16 96 Nasal Cannula 2.00 11/20/16 23:15 111 13 123/90 99 Nasal Cannula 2 11/20/16 23:00 117 14 143/91 100 Nasal Cannula 3 11/20/16 22:45 103 14 142/95 98 Nasal Cannula 3 11/20/16 22:30 98 15 142/96 97 Nasal Cannula 3 11/20/16 22:15 98.4 101 16 155/93 98 Nasal Cannula 3 11/20/16 22:00 95 16 146/95 96 Nasal Cannula 3 11/20/16 22:00 14 11/20/16 21:45 96 17 142/90 99 Nasal Cannula 3 11/20/16 21:30 95 18 144/98 99 T-Piece 15 11/20/16 21:21 97.9 97 17 141/94 100 T-Piece 15 11/20/16 16:00 97.4 115 16 142/94 99 11/20/16 15:34 98 Nasal Cannula 2.00 11/20/16 08:00 96.5 94 16 134/94 97 I/O 11/20/16 11/20/16 11/20/16 11/21/16 11/21/16 11/21/16 07:00 15:00 23:00 07:00 15:00 23:00 Intake Total 0 ml 5700 ml 860 ml Output Total 1425 ml 1600 ml 700 ml Balance -1425 ml 4100 ml 160 ml Intake Oral 0 ml 360 ml Packed Cells 500 ml 0 ml Other 5200 ml 500 ml Output Urine Total 1425 ml 300 ml 700 ml Estimated Blood Loss 1300 ml 0 ml # Bowel Movements 0 0 Result Diagram: 11/21/16 0555 11/21/16 0555 Other Results Laboratory Tests Test 11/20/16 11/21/16 15:01 05:55 Prothrombin Time 12.2 SEC 11.5 SEC (9.8-11.6) (9.8-11.6) Prothromb Time International 1.1 RATIO 1.0 RATIO Ratio Imaging Microbiology Date/Time Procedure Status Source Growth 11/20/16 17:28 Gram Stain - Final Resulted Wound Hip 11/20/16 17:28 Wound Culture Resulted Wound Hip Pending 11/20/16 17:28 Fungal Smear - Final Resulted Wound Hip NO FUNGAL ELEMENTS SEEN. 11/20/16 17:28 Fungal Culture Resulted Wound Hip Pending 11/20/16 17:28 Acid Fast Stain Received Wound Hip Pending 11/20/16 17:28 Mycobacterial Culture Received Wound Hip Pending Last 72 hours Impressions Hip X-Ray 11/20/16 0000 Signed Impressions: Service Date/Time: Sunday, November 20, 2016 22:03 - CONCLUSION: Postsurgical changes are noted. Trae Cano MD Last 72 hours Impressions Chest X-Ray 11/12/16 0000 Signed Impressions: Service Date/Time: Saturday, November 12, 2016 12:56 - CONCLUSION: No acute disease. Davion Carranza MD Abdomen/Pelvis CT 11/12/16 0000 Signed Impressions: Service Date/Time: Saturday, November 12, 2016 08:59 - CONCLUSION: 1. Wall thickening along the lateral cecum. Colonoscopy may be warranted. No acute inflammatory process. 2. No renal calculi or hydronephrosis. 3. Copious amount of stool throughout the large bowel. Davion Carranza MD Hip and Pelvis X-Ray 11/11/16 0000 Signed Impressions: Service Date/Time: Friday, November 11, 2016 19:32 - CONCLUSION: No acute radiographic abnormality right bipolar hip arthroplasty. Adin Kendall MD Last 24 hours Impressions Hip MRI 10/02/16 0000 Signed Impressions: Service Date/Time: Sunday, October 02, 2016 09:13 - CONCLUSION: 12 cm collection in the right hip and buttock region, likely hematoma/seroma. The lesion could certainly be drained or sampled without difficulty under CT guidance. Adin Guillermo MD Objective Remarks Right hip dressing clean and dry Moves warmtoes well right knee better Assessment & Plan Ortho Post Op Day #: 1 Problem List: Assessment and Plan 1 day post revision mTHA and ORIF Stable DC Friday Shaan Lindo MD Nov 21, 2016 07:53
[2016-11-21 08:00] VITALS: BP 142/99; PULSE 124; RESP 16; TEMP 97.6; O2SAT 98
[2016-11-21] MEDS: SODIUM CHLORIDE 0.9% FLUSH 5 ML FLUSH IVF SCH ×2 (09:00→22:04)
--- NOTE | 2016-11-21 09:03 | HHI.PR ---
Subjective Remarks no sob no fever or chill no cough or sputum OCCASIONAL WHEEZE fell , right HIP FX Objective Vital Signs Date Time Temp Pulse Resp B/P Pulse Ox O2 Delivery O2 Flow Rate FiO2 11/21/16 08:00 97.6 124 16 142/99 98 11/21/16 06:00 16 11/21/16 04:05 97.3 118 20 138/89 97 11/21/16 01:43 96.4 120 20 147/96 98 11/21/16 00:30 98.6 117 14 146/96 98 Nasal Cannula 2 11/21/16 00:00 98.6 119 14 137/83 99 Nasal Cannula 2 11/20/16 23:45 14 11/20/16 23:30 115 14 136/82 99 Nasal Cannula 2 11/20/16 23:16 96 Nasal Cannula 2.00 11/20/16 23:15 111 13 123/90 99 Nasal Cannula 2 11/20/16 23:00 117 14 143/91 100 Nasal Cannula 3 11/20/16 22:45 103 14 142/95 98 Nasal Cannula 3 11/20/16 22:30 98 15 142/96 97 Nasal Cannula 3 11/20/16 22:15 98.4 101 16 155/93 98 Nasal Cannula 3 11/20/16 22:00 95 16 146/95 96 Nasal Cannula 3 11/20/16 22:00 14 11/20/16 21:45 96 17 142/90 99 Nasal Cannula 3 11/20/16 21:30 95 18 144/98 99 T-Piece 15 11/20/16 21:21 97.9 97 17 141/94 100 T-Piece 15 11/20/16 16:00 97.4 115 16 142/94 99 11/20/16 15:34 98 Nasal Cannula 2.00 I/O 11/20/16 11/20/16 11/20/16 11/21/16 11/21/16 11/21/16 07:00 15:00 23:00 07:00 15:00 23:00 Intake Total 0 ml 5700 ml 860 ml Output Total 1425 ml 1600 ml 700 ml Balance -1425 ml 4100 ml 160 ml Intake Oral 0 ml 360 ml Packed Cells 500 ml 0 ml Other 5200 ml 500 ml Output Urine Total 1425 ml 300 ml 700 ml Estimated Blood Loss 1300 ml 0 ml # Bowel Movements 0 0 Result Diagram: 11/21/16 0555 11/21/16 0555 Objective Remarks GENERAL: SKIN: Warm and dry. HEAD: Atraumatic. Normocephalic. EYES: Pupils equal and round. No scleral icterus. No injection or drainage. ENT: No nasal bleeding or discharge. Mucous membranes pink and moist. NECK: Trachea midline. No JVD. CARDIOVASCULAR: Regular rate and rhythm. RESPIRATORY: No accessory muscle use. Clear to auscultation. Breath sounds equal bilaterally. GASTROINTESTINAL: Abdomen soft, non-tender, nondistended. Hepatic and splenic margins not palpable. MUSCULOSKELETAL: Extremities without clubbing, cyanosis, or edema. No obvious deformities. NEUROLOGICAL: Awake and alert. No obvious cranial nerve deficits. Motor grossly within normal limits. Five out of 5 muscle strength in the arms and legs. Normal speech. PSYCHIATRIC: Appropriate mood and affect; insight and judgment normal. Assessment and Plan Assessment and Plan pulm improving with occasional wheeze DVT/PE ON COUMADIN HIP fx , surgery done well tolerated plan ContIinue O2 therapy INCREASE ACTIVITY bronchodilators taper steroids as tolerated for hip surgery IS Mary Hernandez MD Nov 21, 2016 09:03
[2016-11-21] MEDS: HYDROmorphone HCL PCA 6 MG/30 ML IV SCH (09:23)
[2016-11-21] MEDS: FUROSEMIDE 40 MG TAB PO SCH ×2 (09:29→17:27)
[2016-11-21] MEDS: PANTOPRAZOLE SOD 40 MG DELAYED RELEASE TAB PO SCH (09:29)
[2016-11-21] MEDS: ACETAMINOPHEN 1000 MG/100 ML VIAL IV SCH ×2 (09:29→22:04)
[2016-11-21] MEDS: FLUCONAZOLE 200 MG TAB PO SCH (09:29)
[2016-11-21] MEDS: LORazepam 0.5 MG TAB PO SCH ×2 (09:29→22:03)
[2016-11-21] MEDS: predniSONE 10 MG TAB PO SCH ×2 (09:29→22:03)
[2016-11-21] MEDS: POTASSIUM CHLORIDE 10 MEQ CONTROLLED RELEASE TAB PO SCH ×2 (09:29→22:04)
[2016-11-21] MEDS: DILTIAZEM-CD 180 MG CAP ER PO SCH (09:29)
[2016-11-21] MEDS: BUDESONIDE-FORMOTEROL 160/4.5 MCG INHALER INH SCH ×2 (09:30→22:03)
[2016-11-21] MEDS: RESP: ALBUTEROL 2.5 MG/IPRATROPIUM 0.5 MG NEB (PRN) NEB ×2 (09:30→14:43)
[2016-11-21] MEDS: POLYETHYLENE GLYCOL 17 GM PKG PO SCH (09:30)
[2016-11-21 11:31] VITALS: BP 151/95; PULSE 131; RESP 18; TEMP 97.5; O2SAT 96
[2016-11-21] MEDS ORDERED: VANCOMYCIN INJ 1.5 GM in SODIUM CHLOR 0.9% 250 ML INJ 250 ML IV SCH (12:00)
[2016-11-21] MEDS ORDERED: VANCOMYCIN 1,500 MG/NS 500 ML IV SCH ×2 (12:00)
--- NOTE | 2016-11-21 15:31 | HHI.PR ---
Subjective Subjective Remarks resting in bed S/P hip surg, 3-15 up in chair X 4 hrs today in rm No SOB (Yulisa Watkins) Review of Systems Constitutional Constitutional: Fatigue, Weakness Constitutional Remarks 10 point ROS done. positives noted with rt. hip, generalized weakness constipation, other systems unremarkable (Yulisa Watkins) Pulmonary Respiratory: Shortness of Breath, Wheezing (Yulisa Watkins) Musculoskeletal MS: Weakness MS Remarks rt hip fx (Yulisa Watkins) Psychiatric Psychiatric: Normal Mood (Yulisa Watkins) Vitals/Results Intake & Output 11/20/16 11/20/16 11/21/16 15:00 23:00 07:00 Intake Total 5700 ml 860 ml Output Total 1600 ml 700 ml Balance 4100 ml 160 ml Intake Oral 360 ml Packed Cells 500 ml 0 ml Other 5200 ml 500 ml Output Urine Total 300 ml 700 ml Estimated Blood Loss 1300 ml 0 ml # Bowel Movements 0 Vital Signs Vital Signs Date Time Temp Pulse Resp B/P Pulse Ox O2 Delivery O2 Flow Rate FiO2 11/21/16 11:31 97.5 131 18 151/95 96 11/21/16 09:22 Nasal Cannula 2.00 11/21/16 08:00 97.6 124 16 142/99 98 11/21/16 06:00 16 11/21/16 04:05 97.3 118 20 138/89 97 11/21/16 01:43 96.4 120 20 147/96 98 11/21/16 00:30 98.6 117 14 146/96 98 Nasal Cannula 2 11/21/16 00:00 98.6 119 14 137/83 99 Nasal Cannula 2 11/20/16 23:45 14 11/20/16 23:30 115 14 136/82 99 Nasal Cannula 2 11/20/16 23:16 96 Nasal Cannula 2.00 11/20/16 23:15 111 13 123/90 99 Nasal Cannula 2 11/20/16 23:00 117 14 143/91 100 Nasal Cannula 3 11/20/16 22:45 103 14 142/95 98 Nasal Cannula 3 11/20/16 22:30 98 15 142/96 97 Nasal Cannula 3 11/20/16 22:15 98.4 101 16 155/93 98 Nasal Cannula 3 11/20/16 22:00 95 16 146/95 96 Nasal Cannula 3 11/20/16 22:00 14 11/20/16 21:45 96 17 142/90 99 Nasal Cannula 3 11/20/16 21:30 95 18 144/98 99 T-Piece 15 11/20/16 21:21 97.9 97 17 141/94 100 T-Piece 15 11/20/16 16:00 97.4 115 16 142/94 99 11/20/16 15:34 98 Nasal Cannula 2.00 (Yulisa Watkins) CBC/BMP: 11/21/16 0555 11/21/16 0555 Lab Results Laboratory Tests Test 11/20/16 11/20/16 11/20/16 11/20/16 18:05 19:12 19:20 19:21 Blood Gas Puncture Site Blood Gas Patient Temperature 98.6 98.6 Blood Gas HCO3 24 mmol/L 25 mmol/L Blood Gas Base Excess -0.2 mmol/L 0.6 mmol/L Blood Gas Oxygen Saturation 97 % 96 % Arterial Blood pH 7.38 7.40 Arterial Blood Partial 42 mmHg 41 mmHg Pressure CO2 Arterial Blood Partial 237 mmHg 247 mmHg Pressure O2 Arterial Blood Oxygen Content 14.1 Vol % 10.7 Vol % Arterial Blood 2.1 % 2.3 % Carboxyhemoglobin Arterial Blood Methemoglobin 1.1 % 1.5 % Blood Gas Hemoglobin 10.0 G/DL 7.5 G/DL Oxygen Delivery Device O.R. ABG O.R. ABG Blood Gas Inspired Oxygen 70 % 71 % White Blood Count 8.5 TH/MM3 Red Blood Count 3.16 MIL/MM3 Hemoglobin 7.1 GM/DL Hematocrit 22.8 % Mean Corpuscular Volume 72.0 FL Mean Corpuscular Hemoglobin 22.6 PG Mean Corpuscular Hemoglobin 31.3 % Concent Red Cell Distribution Width 23.6 % Platelet Count 336 TH/MM3 Mean Platelet Volume 6.6 FL Blood Type O POSITIVE Crossmatch Leukocyte-Reduced Red Blood Cells Blood Bank Comment Test 11/20/16 11/21/16 20:25 05:55 Blood Gas Puncture Site Blood Gas Patient Temperature 98.6 Blood Gas HCO3 21 mmol/L Blood Gas Base Excess -2.8 mmol/L Blood Gas Oxygen Saturation 97 % Arterial Blood pH 7.39 Arterial Blood Partial 36 mmHg Pressure CO2 Arterial Blood Partial 276 mmHg Pressure O2 Arterial Blood Oxygen Content 13.8 Vol % Arterial Blood 2.0 % Carboxyhemoglobin Arterial Blood Methemoglobin 1.1 % Blood Gas Hemoglobin 9.7 G/DL Oxygen Delivery Device O.R. ABG Blood Gas Inspired Oxygen 70 % Hemoglobin 8.8 GM/DL Hematocrit 25.7 % Prothrombin Time 11.5 SEC Prothromb Time International 1.0 RATIO Ratio Sodium Level 139 MEQ/L Potassium Level 3.9 MEQ/L Chloride Level 100 MEQ/L Carbon Dioxide Level 28.6 MEQ/L Anion Gap 10 MEQ/L Blood Urea Nitrogen 10 MG/DL Creatinine 0.84 MG/DL Estimat Glomerular Filtration 96 ML/MIN Rate Random Glucose 200 MG/DL Calcium Level 9.3 MG/DL Microbiology Microbiology 11/20/16 Gram Stain - Final, Resulted 11/20/16 Wound Culture - Preliminary, Resulted NO GROWTH IN 24 HOURS. 11/20/16 Gram Stain - Final, Resulted 11/20/16 Wound Culture - Preliminary, Resulted NO GROWTH IN 24 HOURS. 11/20/16 Gram Stain - Final, Resulted 11/20/16 Wound Culture - Preliminary, Resulted NO GROWTH IN 24 HOURS. 11/20/16 Acid Fast Stain, Received Pending 11/20/16 Mycobacterial Culture, Received Pending 11/20/16 Acid Fast Stain, Received Pending 11/20/16 Mycobacterial Culture, Received Pending 11/20/16 Acid Fast Stain, Received Pending 11/20/16 Mycobacterial Culture, Received Pending 11/20/16 Fungal Smear - Final, Resulted NO FUNGAL ELEMENTS SEEN. 11/20/16 Fungal Culture, Resulted Pending 11/20/16 Fungal Smear - Final, Resulted NO FUNGAL ELEMENTS SEEN. 11/20/16 Fungal Culture, Resulted Pending 11/20/16 Fungal Smear - Final, Resulted NO FUNGAL ELEMENTS SEEN. 11/20/16 Fungal Culture, Resulted Pending (Yulisa WatkinsP) Physical Exam General General Appearance: Well Developed, Well Nourished, No Acute Distress, Anxious , Obese (Yulisa Watkins OPERATIONS/DISPATCH) Eyes Eye Exam: Pupils Equal, Sclera White, Extraocular Movement Intact (Yulisa WatkinsP) Ears & Nose Ears & Nose Exam: Nasal Mucosa [place] (Yulisa Watkins OPERATIONS/DISPATCH) Throat Throat Exam: Oral Mucosa [place] & Moist (Yulisa Watkins) Neck Neck Exam: Neck Supple, Trachea Midline (Yulisa Watkins) Pulmonary Resp Exam: Clear Bilaterally, Breath Sounds Equal, No Distress (Yulisa Watkins) Cardiology CV Exam: Regular, Normal Sinus Rhythm (Yulisa Watkins) Gastrointestinal/Abdomen GI Exam: Soft, Non-Tender, Bowel Sounds Present, Positive Bowel Movement ( Yulisa Watkins) Musculoskeletal MS Exam: Joints Intact MS Remarks hip spacer in, Surgery 11-20, rt. hip repair (Yulisa Watkins) Integumentary Skin Exam: Warm, Dry (Yulisa Watkins) Extremeties Extremities Exam: No Edema (Yulisa Watkins) Neurologic Neuro Exam: Alert, Awake, Oriented, Speech Clear, Moving All Extremities ( Yulisa Watkins) Psychiatric Psych Exam: Appropriate Responses (Yulisa Watkins) PUD Prophylasis PUD Prophylaxis: Protonix (Yulisa Watkins) Assessment/Plan Assessment/Plan Assessment s/p COPD exacerbation severe advance stage asthma Right hip prosthetic joint /fungal infection Right hip seroma Status post right hip drainage Depression MELIZA/ severe Anxiety acute on chronic Right hip pain Status post upper endoscopy on 11/14/16 New diagnosis of distal esophagitis history for pulmonary embolism and right lower extremity DVT s/p fall R periprosthetic comminuted Fx Management S/P surgery rt. hip repair, 11-20, form spacer between legs while resting up X 4 hrs today in bed. PT in. pain management per [employer] til 5pm, per ortho vital signs reviewed, afebrile, other checks stable labs reviewed, hgb stable, monitor post op. Supplemental oxygen Steroids , probable cause of mild hyperglycemia bronchodilators, doing treatments today, duonebs, few wheezes noted. Protonix, PUD prophylaxis constipation, MOM, day 3, monitor Antibiotics per ID/ On micafungin & Diflucan Pain management Discussed with patient and d/w Dr. Sandoval, patient seen on his behalf (Yulisa Watkins) Assessment/Plan PT IS SEEN & eXAMINED D/W PT D./W YULISA ZHONG W ABOVE CONT CURRENT TX ANALGESIC WOUND CARE XARELTO IV MICAFUNGIN/ dIFLUCAN STEROIDS AEROSOL TX WILL F/U (Alvin Sandoval MD) Yulisa Watkins Nov 21, 2016 15:31 Alvin Sandoval MD Nov 21, 2016 17:10
[2016-11-21] MEDS ORDERED: MAGNESIUM HYDROXIDE SUSP 30 ML CUP PO PRN (15:45)
[2016-11-21] MEDS: ACETAMINOPHEN/HYDROcodone 325 MG/5 MG TAB PO PRN ×2 (17:37→21:59)
[2016-11-21 20:00] VITALS: BP 131/89; PULSE 108; RESP 16; TEMP 97.1; O2SAT 99
[2016-11-21] MEDS: INSULIN DETEMIR 100 UNITS/ML VIAL SQ SCH (22:02)
[2016-11-21] MEDS: MONTELUKAST SODIUM 10 MG TAB PO SCH (22:03)
[2016-11-21] MEDS: DOCUSATE SODIUM 100 MG CAP PO SCH (22:03)
[2016-11-21] MEDS: ATORVASTATIN 20 MG TAB PO SCH (22:04)
[2016-11-21] MEDS: MICAFUNGIN INJ 150 MG in SODIUM CHLORIDE 0.9% INJ 100 ML IV SCH (23:06)
[2016-11-21] MEDS: APIXABAN 2.5 MG TABLET PO SCH (23:07)
[2016-11-22] VITALS (8 sets, daily range): BP systolic 121–155; BP diastolic 73–97; PULSE 104–119; RESP 16–20; TEMP 96.3–98.2; O2SAT 94–99
[2016-11-22] MEDS: PCA - TOTAL MG DILAUDID DELIVERED PER SHIFT OTHER SCH ×4 (01:04→21:32)
--- NOTE | 2016-11-22 05:20 | HHI.FF ---
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 My clinical findings support the need for the requested home health care services because: Ltd mobility - disease progression Infection w/ risk of complications Injectable med education/admin I certify that my clinical findings support that this patient is homebound because: Unsafe to leave home unassisted Unable to use public transportation Shaan Lindo MD Nov 22, 2016 05:20
--- NOTE | 2016-11-22 05:24 | PD.ORT.PN ---
Subjective Post Op Day #: 2 Pain Scale: not bad Subjective Remarks knee better Objective Vitals Vital Signs Date Time Temp Pulse Resp B/P Pulse Ox O2 Delivery O2 Flow Rate FiO2 11/22/16 00:00 97.0 109 16 131/97 99 11/21/16 20:00 97.1 108 16 131/89 99 11/21/16 18:42 Nasal Cannula 2.00 11/21/16 11:31 97.5 131 18 151/95 96 11/21/16 09:22 Nasal Cannula 2.00 11/21/16 08:00 97.6 124 16 142/99 98 11/21/16 06:00 16 I/O 11/21/16 11/21/16 11/21/16 11/22/16 11/22/16 11/22/16 07:00 15:00 23:00 07:00 15:00 23:00 Intake Total 860 ml 480 ml Output Total 700 ml 1000 ml Balance 160 ml -520 ml Intake Oral 360 ml 480 ml Packed Cells 0 ml Other 500 ml Output Urine Total 700 ml 1000 ml Estimated Blood Loss 0 ml # Bowel Movements 0 0 Result Diagram: 11/21/16 0555 11/21/16 0555 Other Results Laboratory Tests Test 11/21/16 05:55 Prothrombin Time 11.5 SEC (9.8-11.6) Prothromb Time International 1.0 RATIO Ratio Imaging Microbiology Date/Time Procedure Status Source Growth 11/20/16 17:28 Gram Stain - Final Resulted Wound Hip 11/20/16 17:28 Wound Culture - Preliminary Resulted Wound Hip NO GROWTH IN 24 HOURS. 11/20/16 17:28 Fungal Smear - Final Resulted Wound Hip NO FUNGAL ELEMENTS SEEN. 11/20/16 17:28 Fungal Culture Resulted Wound Hip Pending 11/20/16 17:28 Acid Fast Stain Received Wound Hip Pending 11/20/16 17:28 Mycobacterial Culture Received Wound Hip Pending Microbiology Date/Time Procedure Status Source Growth 11/20/16 17:28 Gram Stain - Final Resulted Wound Hip 11/20/16 17:28 Wound Culture Resulted Wound Hip Pending 11/20/16 17:28 Fungal Smear - Final Resulted Wound Hip NO FUNGAL ELEMENTS SEEN. 11/20/16 17:28 Fungal Culture Resulted Wound Hip Pending 11/20/16 17:28 Acid Fast Stain Received Wound Hip Pending 11/20/16 17:28 Mycobacterial Culture Received Wound Hip Pending Last 72 hours Impressions Hip X-Ray 11/20/16 0000 Signed Impressions: Service Date/Time: Sunday, November 20, 2016 22:03 - CONCLUSION: Postsurgical changes are noted. Trae Cano MD Last 72 hours Impressions Chest X-Ray 11/12/16 0000 Signed Impressions: Service Date/Time: Saturday, November 12, 2016 12:56 - CONCLUSION: No acute disease. Davion Carranza MD Abdomen/Pelvis CT 11/12/16 0000 Signed Impressions: Service Date/Time: Saturday, November 12, 2016 08:59 - CONCLUSION: 1. Wall thickening along the lateral cecum. Colonoscopy may be warranted. No acute inflammatory process. 2. No renal calculi or hydronephrosis. 3. Copious amount of stool throughout the large bowel. Davion Carranza MD Hip and Pelvis X-Ray 11/11/16 0000 Signed Impressions: Service Date/Time: Friday, November 11, 2016 19:32 - CONCLUSION: No acute radiographic abnormality right bipolar hip arthroplasty. Adin Kendall MD Last 24 hours Impressions Hip MRI 10/02/16 0000 Signed Impressions: Service Date/Time: Sunday, October 02, 2016 09:13 - CONCLUSION: 12 cm collection in the right hip and buttock region, likely hematoma/seroma. The lesion could certainly be drained or sampled without difficulty under CT guidance. Adin Guillermo MD Objective Remarks sleeping comfy. Dressings clean and dry. Moves warm toes well Assessment & Plan Ortho Post Op Day #: 2 Problem List: Assessment and Plan 2 day post revision mTHA and ORIF Stable. 24 hour C/S negative To request ID to change from oral diflucan to another IV antifungal in additiob to Macrofungin for 6 weeks. Eliquis for VTE prophylaxis DC Friday afternoon, hopefully Shaan Lindo MD Nov 22, 2016 05:24
[2016-11-22] MEDS: KETOROLAC TROMETHAMINE 30 MG/ML (IVP) VIAL IVP SCH ×3 (06:04→23:26)
[2016-11-22] MEDS: INSULIN ASPART SUPPLEMENTAL SCALE SQ SCH ×4 (06:04→21:25)
[2016-11-22] MEDS: SUCRALFATE 1 GM TAB PO SCH ×3 (06:04→17:15)
[2016-11-22] MEDS: RESP: ALBUTEROL 2.5 MG/IPRATROPIUM 0.5 MG NEB (PRN) NEB ×4 (07:27→20:04)
[2016-11-22] MEDS ORDERED: MAGNESIUM CITRATE SOLN 300 ML BTL PO ONE (08:00)
--- NOTE | 2016-11-22 08:02 | HHI.PR ---
Subjective Subjective Remarks resting in bed S/P hip surg, 3-15 up with PT, appetite good No SOB Review of Systems Constitutional Constitutional: Fatigue, Weakness Constitutional Remarks 10 point ROS done. positives noted with rt. hip, generalized weakness constipation, other systems unremarkable Pulmonary Respiratory: Shortness of Breath, Wheezing GI/Abdomen GI/Abdominal Exam: Constipation Musculoskeletal MS: Weakness MS Remarks rt hip fx Psychiatric Psychiatric: Normal Mood Vitals/Results Intake & Output 11/21/16 11/21/16 11/22/16 15:00 23:00 07:00 Intake Total 480 ml 771 ml Output Total 1000 ml 1500 ml Balance -520 ml -729 ml Intake Oral 480 ml 360 ml IV Total 411 ml Output Urine Total 1000 ml 1500 ml # Bowel Movements 0 0 Vital Signs Vital Signs Date Time Temp Pulse Resp B/P Pulse Ox O2 Delivery O2 Flow Rate FiO2 11/22/16 07:27 96 21 11/22/16 00:00 97.0 109 16 131/97 99 11/21/16 20:00 97.1 108 16 131/89 99 11/21/16 18:42 Nasal Cannula 2.00 11/21/16 11:31 97.5 131 18 151/95 96 11/21/16 09:22 Nasal Cannula 2.00 CBC/BMP: 11/21/16 0555 11/21/16 0555 Current Medications Active Medications Acetaminophen (Ofirmev Inj) 1,000 mg Q12HR IV Last administered on 11/21/16 22: 04; Admin Dose 1,000 MG; Start 11/21/16 at 09:00; Stop 11/23/16 at 21:01 Apixaban 2.5 mg 2.5 mg BID PO Last administered on 11/21/16 23:07; Admin Dose 2.5 MG; Start 11/21/16 at 21:00 Docusate Sodium (Colace) 100 mg BID PO Last administered on 11/21/16 22:03; Admin Dose 100 MG; Start 11/21/16 at 21:00 Hydromorphone HCl (Dilaudid Pf Inj) 1 mg Q4H PRN IV PUSH; Start 11/21/16 at 18: 00 IV Flush 2 ml 2 ml BID IVF Last administered on 11/21/16 22:04; Admin Dose 2 ML ; Start 11/21/16 at 09:00 Magnesium Hydroxide (Milk Of Magnesia Liq) 30 ml DAILY PRN PO; Start 11/21/16 at 15:45 Vancomycin HCl/ Sodium Chloride (Vancomycin Inj/ NS 250 ml Inj) 250 ml @ 250 mls/hr Q12H IV; Start 11/21/16 at 12:00; Stop 11/21/16 at 12:59; Status Cancel Vancomycin HCl/ Sodium Chloride (Vancomycin Inj/ NS 500 ml Inj) 515 ml @ 257.5 mls/ hr Q12H IV Last administered on 11/21/16t 11:25; Admin Dose 257.5 MLS/HR; Start 11/21/16 at 12:00; Stop 11/21/16 at 13:59; Status DC Physical Exam General General Appearance: Well Developed, Well Nourished, No Acute Distress, Anxious , Obese Eyes Eye Exam: Pupils Equal, Sclera White, Extraocular Movement Intact Ears & Nose Ears & Nose Exam: Nasal Mucosa [place] Throat Throat Exam: Oral Mucosa [place] & Moist Neck Neck Exam: Neck Supple, Trachea Midline Pulmonary Resp Exam: Clear Bilaterally, Breath Sounds Equal, No Distress Cardiology CV Exam: Regular, Normal Sinus Rhythm Gastrointestinal/Abdomen GI Exam: Soft (taut), Non-Tender, Bowel Sounds Present, Positive Bowel Movement , Distended (mild) Musculoskeletal MS Exam: Joints Intact MS Remarks hip spacer in, Surgery 11-20, rt. hip repair Integumentary Skin Exam: Warm, Dry Extremeties Extremities Exam: No Edema Neurologic Neuro Exam: Alert, Awake, Oriented, Speech Clear, Moving All Extremities Psychiatric Psych Exam: Appropriate Responses PUD Prophylasis PUD Prophylaxis: Protonix Assessment/Plan Assessment/Plan s/p COPD exacerbation severe advance stage asthma Right hip prosthetic joint /fungal infection Right hip seroma Status post right hip drainage Depression MELIZA/ severe Anxiety acute on chronic Right hip pain Status post upper endoscopy on 11/14/16 New diagnosis of distal esophagitis history for pulmonary embolism and right lower extremity DVT s/p fall R periprosthetic comminuted Fx constipation Management S/P surgery rt. hip repair, 11-20, form spacer between legs while resting up X 4 hrs today in bed. PT in. pain management per [employer] til 5pm, per ortho vital signs reviewed, afebrile, other checks stable labs reviewed, hgb stable, monitor post op. Supplemental oxygen Steroids , probable cause of mild hyperglycemia bronchodilators, doing treatments today, duonebs, few wheezes noted prn, better this am Protonix, PUD prophylaxis Antibiotics per ID/ On micafungin & Diflucan constipation, patient had laxative yesterday with no results. Ordered Mag citrate this am, If no results, may need fleets enema. will monitor Pain management per ortho Discussed with patient and d/w Dr. Sandoval, patient seen on his behalf Yulisa Watkins Nov 22, 2016 08:02
--- NOTE | 2016-11-22 08:26 | HHI.PR ---
Subjective Remarks no sob no fever or chill no cough or sputum OCCASIONAL WHEEZE fell , right HIP FX Objective Vital Signs Date Time Temp Pulse Resp B/P Pulse Ox O2 Delivery O2 Flow Rate FiO2 11/22/16 07:27 96 21 11/22/16 00:00 97.0 109 16 131/97 99 11/21/16 20:00 97.1 108 16 131/89 99 11/21/16 18:42 Nasal Cannula 2.00 11/21/16 11:31 97.5 131 18 151/95 96 11/21/16 09:22 Nasal Cannula 2.00 I/O 11/21/16 11/21/16 11/21/16 11/22/16 11/22/16 11/22/16 07:00 15:00 23:00 07:00 15:00 23:00 Intake Total 860 ml 480 ml 771 ml Output Total 700 ml 1000 ml 1500 ml Balance 160 ml -520 ml -729 ml Intake Oral 360 ml 480 ml 360 ml IV Total 411 ml Packed Cells 0 ml Other 500 ml Output Urine Total 700 ml 1000 ml 1500 ml Estimated Blood Loss 0 ml # Bowel Movements 0 0 0 Result Diagram: 11/21/16 0555 11/21/16 0555 Objective Remarks GENERAL: SKIN: Warm and dry. HEAD: Atraumatic. Normocephalic. EYES: Pupils equal and round. No scleral icterus. No injection or drainage. ENT: No nasal bleeding or discharge. Mucous membranes pink and moist. NECK: Trachea midline. No JVD. CARDIOVASCULAR: Regular rate and rhythm. RESPIRATORY: No accessory muscle use. Clear to auscultation. Breath sounds equal bilaterally. GASTROINTESTINAL: Abdomen soft, non-tender, nondistended. Hepatic and splenic margins not palpable. MUSCULOSKELETAL: Extremities without clubbing, cyanosis, or edema. No obvious deformities. NEUROLOGICAL: Awake and alert. No obvious cranial nerve deficits. Motor grossly within normal limits. Five out of 5 muscle strength in the arms and legs. Normal speech. PSYCHIATRIC: Appropriate mood and affect; insight and judgment normal. Assessment and Plan Assessment and Plan pulm improving with occasional wheeze DVT/PE ON COUMADIN HIP fx , surgery done well tolerated plan ContIinue O2 therapy INCREASE ACTIVITY bronchodilators taper steroids as tolerated for hip surgery IS Mary Hernandez MD Nov 22, 2016 08:26
[2016-11-22] MEDS: HYDROCORTISONE/PRAMOXINE RECTAL FOAM 10 GM CAN RECTAL SCH ×3 (09:00→21:32)
[2016-11-22] MEDS: PANTOPRAZOLE SOD 40 MG DELAYED RELEASE TAB PO SCH (09:00)
[2016-11-22] MEDS: POLYETHYLENE GLYCOL 17 GM PKG PO SCH (09:00)
[2016-11-22] MEDS: ACETAMINOPHEN/HYDROcodone 325 MG/5 MG TAB PO PRN ×3 (10:59→21:29)
[2016-11-22] MEDS: APIXABAN 2.5 MG TABLET PO SCH ×2 (11:00→21:27)
[2016-11-22] MEDS: FUROSEMIDE 40 MG TAB PO SCH ×2 (11:01→17:12)
[2016-11-22] MEDS: DILTIAZEM-CD 180 MG CAP ER PO SCH (11:01)
[2016-11-22] MEDS: DOCUSATE SODIUM 100 MG CAP PO SCH ×2 (11:01→21:27)
[2016-11-22] MEDS: FLUCONAZOLE 200 MG TAB PO SCH (11:02)
[2016-11-22] MEDS: LORazepam 0.5 MG TAB PO SCH ×2 (11:02→21:28)
[2016-11-22] MEDS: predniSONE 10 MG TAB PO SCH ×2 (11:02→21:27)
[2016-11-22] MEDS: POTASSIUM CHLORIDE 10 MEQ CONTROLLED RELEASE TAB PO SCH ×2 (11:02→21:28)
[2016-11-22] MEDS: BUDESONIDE-FORMOTEROL 160/4.5 MCG INHALER INH SCH ×2 (11:03→21:24)
[2016-11-22] MEDS: ACETAMINOPHEN 1000 MG/100 ML VIAL IV SCH ×2 (11:03→21:00)
[2016-11-22] MEDS: SODIUM CHLORIDE 0.9% FLUSH 5 ML FLUSH IVF SCH ×2 (11:04→21:21)
[2016-11-22] MEDS: METHYLNALTREXONE BROMIDE 12 MG/0.6 ML VIAL SQ SCH (11:05)
--- NOTE | 2016-11-22 19:21 | HHI.IDPN ---
Subjective Subjective Remarks doing good Off O2 afebrile underwent R hip replacement on 5 - path wo e/o infection Clx remain [id number] at 2 days Antibiotics Micafungin Diflucan Lines PICC RUE Past Medical History DVT right lower extremity Pulmonary embolism Asthma Hyperlipidemia Past Surgical History Previous hip surgery Recent right surgery, has Abx spacer, August 09, 2016 Allergies: Coded Allergies: Tetracycline (Verified Allergy, Severe, throat swells, 09/29/16) Demerol (Verified Allergy, Intermediate, hallucinations, 09/29/16) Objective . Vital Signs Date Time Temp Pulse Resp B/P Pulse Ox O2 Delivery O2 Flow Rate FiO2 11/22/16 16:00 96.3 106 18 143/83 97 11/22/16 12:00 96.4 119 18 128/87 96 11/22/16 08:00 98.1 118 18 155/85 94 11/22/16 07:27 96 21 11/22/16 00:00 97.0 109 16 131/97 99 11/21/16 20:00 97.1 108 16 131/89 99 11/21/16 11/21/16 11/22/16 15:00 23:00 07:00 Intake Total 480 ml 771 ml Output Total 1000 ml 1500 ml Balance -520 ml -729 ml Intake Oral 480 ml 360 ml IV Total 411 ml Output Urine Total 1000 ml 1500 ml # Bowel Movements 0 0 . Laboratory Tests Test 11/21/16 05:55 Hemoglobin 8.8 GM/DL Hematocrit 25.7 % Laboratory Tests Test 11/21/16 05:55 Sodium Level 139 MEQ/L Potassium Level 3.9 MEQ/L Chloride Level 100 MEQ/L Carbon Dioxide Level 28.6 MEQ/L Anion Gap 10 MEQ/L Blood Urea Nitrogen 10 MG/DL Creatinine 0.84 MG/DL Estimat Glomerular Filtration 96 ML/MIN Rate Random Glucose 200 MG/DL Calcium Level 9.3 MG/DL Microbiology Date/Time Procedure Status Source Growth 11/20/16 17:28 Gram Stain - Final Resulted Wound Hip 11/20/16 17:28 Wound Culture - Preliminary Resulted Wound Hip NO GROWTH IN 48 HOURS. 11/20/16 17:28 Gram Stain - Final Resulted Wound Hip 11/20/16 17:28 Wound Culture - Preliminary Resulted Wound Hip NO GROWTH IN 48 HOURS. 11/20/16 17:28 Gram Stain - Final Resulted Wound Hip 11/20/16 17:28 Wound Culture - Preliminary Resulted Wound Hip NO GROWTH IN 48 HOURS. 11/20/16 17:28 Acid Fast Stain - Final Resulted Wound Hip NO ACID FAST BACILLI SEEN 11/20/16 17:28 Mycobacterial Culture Resulted Wound Hip Pending 11/20/16 17:28 Acid Fast Stain - Final Resulted Wound Hip NO ACID FAST BACILLI SEEN 11/20/16 17:28 Mycobacterial Culture Resulted Wound Hip Pending 11/20/16 17:28 Acid Fast Stain - Final Resulted Wound Hip NO ACID FAST BACILLI SEEN 11/20/16 17:28 Mycobacterial Culture Resulted Wound Hip Pending 11/20/16 17:28 Fungal Smear - Final Resulted Wound Hip NO FUNGAL ELEMENTS SEEN. 11/20/16 17:28 Fungal Culture Resulted Wound Hip Pending 11/20/16 17:28 Fungal Smear - Final Resulted Wound Hip NO FUNGAL ELEMENTS SEEN. 11/20/16 17:28 Fungal Culture Resulted Wound Hip Pending 11/20/16 17:28 Fungal Smear - Final Resulted Wound Hip NO FUNGAL ELEMENTS SEEN. 11/20/16 17:28 Fungal Culture Resulted Wound Hip Pending Imaging Last Impressions Hip X-Ray 11/20/16 0000 Signed Impressions: Service Date/Time: Sunday, November 20, 2016 22:03 - CONCLUSION: Postsurgical changes are noted. Trae Cano MD Gall Bladder Ultrasound 11/16/16 0000 Signed Impressions: Service Date/Time: Wednesday, November 16, 2016 17:59 - CONCLUSION: Liver is mildly fatty infiltrated. Trace sludge in the gallbladder. Otherwise within normal limits. Adin Kendall MD Chest X-Ray 11/12/16 0000 Signed Impressions: Service Date/Time: Saturday, November 12, 2016 12:56 - CONCLUSION: No acute disease. Davion Carranza MD Abdomen/Pelvis CT 11/12/16 0000 Signed Impressions: Service Date/Time: Saturday, November 12, 2016 08:59 - CONCLUSION: 1. Wall thickening along the lateral cecum. Colonoscopy may be warranted. No acute inflammatory process. 2. No renal calculi or hydronephrosis. 3. Copious amount of stool throughout the large bowel. Davion Carranza MD Hip and Pelvis X-Ray 11/11/16 0000 Signed Impressions: Service Date/Time: Friday, November 11, 2016 19:32 - CONCLUSION: No acute radiographic abnormality right bipolar hip arthroplasty. Adin Kendall MD Pelvis CT 10/07/16 0000 Signed Impressions: Service Date/Time: Friday, October 07, 2016 16:45 - CONCLUSION: Stable fluid collection posterior to a total right hip prosthesis. Abdirashid Diaz MD Hip MRI 10/02/16 0000 Signed Impressions: Service Date/Time: Sunday, October 02, 2016 09:13 - CONCLUSION: 12 cm collection in the right hip and buttock region, likely hematoma/seroma. The lesion could certainly be drained or sampled without difficulty under CT guidance. Adin Guillermo MD Hip Aspiration/Injection 10/01/16 0000 Signed Impressions: Service Date/Time: Saturday, October 01, 2016 13:44 - CONCLUSION: Uncomplicated aspiration as above. Félix Oneil MD Lower Extremity Ultrasound 09/29/16 0000 Signed Impressions: Service Date/Time: Thursday, September 29, 2016 18:02 - CONCLUSION: 1. Hypoechoic areas with measurements above subjacent and anterior to the right hip incision line. 2. Findings are nonspecific but likely represent resolving hematoma/seroma. Abscess cannot be completely excluded. Please correlate with clinical presentation. Russ Morrison MD Physical Exam GENERAL: awake and alert, not in any respiratory distress SKIN: Cool and dry. No generalized rash or ecchymosis. HEENT: [place] conjunctivae. No scleral icterus. No injection or drainage. Moist oral mucosa. NECK: Trachea midline. No JVD or lymphadenopathy. Supple, nontender, no meningeal signs. CARDIOVASCULAR: Regular rate and rhythm without murmurs, gallops, or rubs. RESPIRATORY: Breath sounds equal bilaterally. Clear to auscultation GASTROINTESTINAL: Abdomen globular, slightly distended, non-tender. Bowel sounds are present and normoactive. No guarding no rebound. No organomegaly. MUSCULOSKELETAL: R hip incision with intact dressing no edema/erythema over R knee NEUROLOGICAL: grossly non-focal PSYCH: Normal affect, calm and cooperative Assessment & Plan Remarks IMPRESSION Osteoporosis 2/2 chjhronic high dose sterroid use Ghada R hip infection, healed and responded to antifungal clinically, however now with periprosthetic femur fracture Severe asthma, with exacerbation Hx DVT RLE and PE RECOMMENDATION Continue Diflucan Continue Micafungin fu cultures untill final will dw Dr Lindo, dw pt, at b/s [facility],Marizol Mariscal MD Nov 22, 2016 19:21
[2016-11-22] MEDS: MICAFUNGIN INJ 150 MG in SODIUM CHLORIDE 0.9% INJ 100 ML IV SCH (21:19)
[2016-11-22] MEDS: INSULIN DETEMIR 100 UNITS/ML VIAL SQ SCH (21:24)
[2016-11-22] MEDS: MONTELUKAST SODIUM 10 MG TAB PO SCH (21:28)
[2016-11-22] MEDS: ATORVASTATIN 20 MG TAB PO SCH (21:28)
[2016-11-23] VITALS (8 sets, daily range): BP systolic 122–155; BP diastolic 83–91; PULSE 92–113; RESP 18–19; TEMP 96.1–97.7; O2SAT 95–99
[2016-11-23] MEDS: RESP: ALBUTEROL 2.5 MG/IPRATROPIUM 0.5 MG NEB (PRN) NEB ×5 (00:35→19:07)
[2016-11-23] MEDS: ACETAMINOPHEN/HYDROcodone 325 MG/5 MG TAB PO PRN ×5 (01:29→23:53)
[2016-11-23] MEDS: SUCRALFATE 1 GM TAB PO SCH ×3 (06:11→17:10)
[2016-11-23] MEDS: KETOROLAC TROMETHAMINE 30 MG/ML (IVP) VIAL IVP SCH (06:12)
[2016-11-23] MEDS: INSULIN ASPART SUPPLEMENTAL SCALE SQ SCH ×4 (06:17→21:15)
[2016-11-23] MEDS: SODIUM CHLORIDE 0.9% FLUSH 5 ML FLUSH IVF SCH ×2 (09:00→21:18)
[2016-11-23] MEDS: POLYETHYLENE GLYCOL 17 GM PKG PO SCH (09:00)
[2016-11-23] MEDS: HYDROCORTISONE/PRAMOXINE RECTAL FOAM 10 GM CAN RECTAL SCH ×3 (09:00→21:20)
[2016-11-23] MEDS: APIXABAN 2.5 MG TABLET PO SCH ×2 (10:15→21:17)
[2016-11-23] MEDS: FUROSEMIDE 40 MG TAB PO SCH ×2 (10:15→17:11)
[2016-11-23] MEDS: DOCUSATE SODIUM 100 MG CAP PO SCH ×2 (10:15→21:17)
[2016-11-23] MEDS: DILTIAZEM-CD 180 MG CAP ER PO SCH (10:15)
[2016-11-23] MEDS: ACETAMINOPHEN 1000 MG/100 ML VIAL IV SCH ×2 (10:15→21:00)
[2016-11-23] MEDS: PANTOPRAZOLE SOD 40 MG DELAYED RELEASE TAB PO SCH (10:15)
[2016-11-23] MEDS: predniSONE 10 MG TAB PO SCH ×2 (10:15→21:17)
[2016-11-23] MEDS: LORazepam 0.5 MG TAB PO SCH ×2 (10:16→21:17)
[2016-11-23] MEDS: POTASSIUM CHLORIDE 10 MEQ CONTROLLED RELEASE TAB PO SCH ×2 (10:16→21:17)
[2016-11-23] MEDS: FLUCONAZOLE 200 MG TAB PO SCH (10:17)
[2016-11-23] MEDS: BUDESONIDE-FORMOTEROL 160/4.5 MCG INHALER INH SCH ×2 (11:29→21:18)
[2016-11-23] MEDS: PCA - TOTAL MG DILAUDID DELIVERED PER SHIFT OTHER SCH ×3 (11:34→21:21)
--- NOTE | 2016-11-23 14:16 | HHI.PR ---
Subjective Subjective Remarks SOB improving no wheezing today no fever pain stable no cp leg swelling eating okay states that he would like SNF now Review of Systems Constitutional Constitutional Remarks 12 point ROS completed, negative except as noted above Vitals/Results Intake & Output 11/22/16 11/22/16 11/23/16 15:00 23:00 07:00 Intake Total 1280 ml 720 ml Output Total 2300 ml 1600 ml Balance -1020 ml -880 ml Intake Oral 1280 ml 720 ml Output Urine Total 2300 ml 1600 ml # Bowel Movements 1 0 Vital Signs Vital Signs Date Time Temp Pulse Resp B/P Pulse Ox O2 Delivery O2 Flow Rate FiO2 11/23/16 10:46 95 21 11/23/16 07:48 96.3 92 18 129/91 97 11/23/16 03:15 96.6 109 19 129/83 96 11/23/16 02:29 18 11/23/16 01:39 Nasal Cannula 2.00 11/23/16 00:33 18 11/22/16 23:50 97.5 104 20 146/85 99 11/22/16 20:45 98.2 111 19 121/73 96 11/22/16 20:04 98 Nasal Cannula 11/22/16 20:00 Room Air 11/22/16 16:00 96.3 106 18 143/83 97 CBC/BMP: 11/21/16 0555 11/21/16 0555 Physical Exam General General Appearance: Well Developed, Well Nourished, No Acute Distress, Obese Eyes Eye Exam: Pupils Equal, Sclera White, Extraocular Movement Intact Ears & Nose Ears & Nose Exam: Nasal Mucosa [place] Throat Throat Exam: Oral Mucosa [place] & Moist Neck Neck Exam: Neck Supple, Trachea Midline Pulmonary Resp Exam: Breath Sounds Equal, No Distress, Decreased Bases Resp Remarks wheezes minimal Cardiology CV Exam: Regular, Normal Sinus Rhythm Gastrointestinal/Abdomen GI Exam: Non-Tender, Bowel Sounds Present, Positive Bowel Movement, Distended Musculoskeletal MS Exam: Joints Intact MS Remarks Right hip dressing D/I Integumentary Skin Exam: Warm, Dry Extremeties Extremities Exam: Pedal Pulses Palpable, Trace Edema Neurologic Neuro Exam: Alert, Awake, Oriented, Speech Clear, Moving All Extremities, No Focal Deficits Psychiatric Psych Exam: Appropriate Responses VTE Prophylaxis VTE Remarks Eliquis PUD Prophylasis PUD Prophylaxis: Protonix Assessment/Plan Assessment/Plan s/p COPD exacerbation severe advance stage asthma Right hip prosthetic joint /fungal infection Right hip seroma Status post right hip drainage Depression MELIZA/ severe Anxiety acute on chronic Right hip pain Status post upper endoscopy on 11/14/16 New diagnosis of distal esophagitis history for pulmonary embolism and right lower extremity DVT s/p fall R periprosthetic comminuted Fx constipation Management S/P surgery rt. hip repair, 3-15, form spacer between legs while resting post op ortho care pain management PT eval and tx per ortho orders Continue oxygen Duonebs PO steroids Protonix, PUD prophylaxis Antibiotics per ID/ On micafungin & Diflucan follow cultures Bowel regimen having BMs Anemia, post PRBC transfusion follow CM consult for DC planning, wants SNF poss. dc next week Labs in am D/W RN D/W Dr. Sandoval D/W pt This patient was seen by myself and Dr. Sandoval, this note is written on his behalf Elizabeth Iraheta Nov 23, 2016 14:16
[2016-11-23] MEDS: CYCLOBENZAPRINE HCL 10 MG TAB PO PRN ×2 (17:11→22:52)
[2016-11-23] MEDS: MICAFUNGIN INJ 150 MG in SODIUM CHLORIDE 0.9% INJ 100 ML IV SCH (19:28)
[2016-11-23] MEDS: MONTELUKAST SODIUM 10 MG TAB PO SCH (21:16)
[2016-11-23] MEDS: INSULIN DETEMIR 100 UNITS/ML VIAL SQ SCH (21:16)
[2016-11-23] MEDS: ATORVASTATIN 20 MG TAB PO SCH (21:17)
[2016-11-24] VITALS (7 sets, daily range): BP systolic 123–151; BP diastolic 84–97; PULSE 102–115; RESP 18; TEMP 95.8–97.7; O2SAT 96–100
[2016-11-24] MEDS: RESP: ALBUTEROL 2.5 MG/IPRATROPIUM 0.5 MG NEB (PRN) NEB ×2 (00:08→16:14)
[2016-11-24] MEDS: ACETAMINOPHEN/HYDROcodone 325 MG/5 MG TAB PO PRN ×4 (06:04→20:58)
[2016-11-24] MEDS: SUCRALFATE 1 GM TAB PO SCH ×3 (06:04→16:58)
[2016-11-24] MEDS: INSULIN ASPART SUPPLEMENTAL SCALE SQ SCH ×4 (06:05→20:53)
[2016-11-24 06:46] LABS: HEMATOCRIT 24.2 % (39.0-51.0); MEAN CELL VOLUME 77.3 FL (80.0-100.0); MEAN CORPUSCULAR HEMOGLOBIN 24.8 PG (27.0-34.0); PLATELET COUNT 361 TH/MM3 (150-450); RED BLOOD COUNT 3.13 MIL/MM3 (4.50-5.90); RED CELL DISTRIBUTION WIDTH 24.1 % (11.6-17.2); WHITE BLOOD COUNT 8.3 TH/MM3 (4.0-11.0)
[2016-11-24 07:02] LABS: REVIEW FLAG FINAL
[2016-11-24 07:08] LABS: BICARBONATE 28.4 MEQ/L (21.0-32.0); POTASSIUM 3.9 MEQ/L (3.5-5.1)
[2016-11-24] MEDS: METHYLNALTREXONE BROMIDE 12 MG/0.6 ML VIAL SQ SCH (09:00)
[2016-11-24] MEDS: SODIUM CHLORIDE 0.9% FLUSH 5 ML FLUSH IVF SCH ×2 (09:00→20:54)
[2016-11-24] MEDS: HYDROCORTISONE/PRAMOXINE RECTAL FOAM 10 GM CAN RECTAL SCH ×2 (09:00→16:58)
[2016-11-24] MEDS: POLYETHYLENE GLYCOL 17 GM PKG PO SCH (09:00)
[2016-11-24] MEDS: DILTIAZEM-CD 180 MG CAP ER PO SCH (09:21)
[2016-11-24] MEDS: CYCLOBENZAPRINE HCL 10 MG TAB PO PRN ×3 (09:21→20:52)
[2016-11-24] MEDS: BUDESONIDE-FORMOTEROL 160/4.5 MCG INHALER INH SCH ×2 (09:22→20:54)
[2016-11-24] MEDS: LORazepam 0.5 MG TAB PO SCH ×2 (09:22→20:52)
[2016-11-24] MEDS: FLUCONAZOLE 200 MG TAB PO SCH (09:22)
[2016-11-24] MEDS: APIXABAN 2.5 MG TABLET PO SCH ×2 (09:22→20:52)
[2016-11-24] MEDS: FUROSEMIDE 40 MG TAB PO SCH ×2 (09:22→16:58)
[2016-11-24] MEDS: POTASSIUM CHLORIDE 10 MEQ CONTROLLED RELEASE TAB PO SCH ×2 (09:22→20:56)
[2016-11-24] MEDS: DOCUSATE SODIUM 100 MG CAP PO SCH ×2 (09:22→20:52)
[2016-11-24] MEDS: PANTOPRAZOLE SOD 40 MG DELAYED RELEASE TAB PO SCH (09:22)
[2016-11-24] MEDS: predniSONE 10 MG TAB PO SCH ×2 (09:22→20:56)
[2016-11-24] MEDS ORDERED: MAGNESIUM CITRATE SOLN 300 ML BTL PO ONE (12:00)
--- NOTE | 2016-11-24 12:04 | HHI.PR ---
Subjective Subjective Remarks SOB improving some wheezing ambulated in hallway no fever pain stable no cp constipated, no BM x 2 days Review of Systems Constitutional Constitutional Remarks 12 point ROS completed, negative except as noted above Vitals/Results Intake & Output 11/23/16 11/23/16 11/24/16 15:00 23:00 07:00 Intake Total 960 ml 720 ml 720 ml Output Total 1500 ml 1325 ml Balance 960 ml -780 ml -605 ml Intake Oral 960 ml 720 ml 720 ml Output Urine Total 1500 ml 1325 ml # Voids 3 # Bowel Movements 1 0 0 Vital Signs Vital Signs Date Time Temp Pulse Resp B/P Pulse Ox O2 Delivery O2 Flow Rate FiO2 11/24/16 08:02 95.8 102 18 123/95 98 11/24/16 07:04 18 11/24/16 04:23 97.5 110 18 131/90 96 11/24/16 00:11 98 Nasal Cannula 21 11/23/16 23:40 97.7 102 19 122/88 98 11/23/16 20:15 96.7 106 19 155/87 99 11/23/16 19:43 Room Air 11/23/16 16:23 97.1 110 18 143/86 98 11/23/16 15:37 95 21 CBC/BMP: 11/24/16 0609 11/24/16 0609 Lab Results Laboratory Tests Test 11/24/16 06:09 White Blood Count 8.3 TH/MM3 Red Blood Count 3.13 MIL/MM3 Hemoglobin 7.7 GM/DL Hematocrit 24.2 % Mean Corpuscular Volume 77.3 FL Mean Corpuscular Hemoglobin 24.8 PG Mean Corpuscular Hemoglobin 32.0 % Concent Red Cell Distribution Width 24.1 % Platelet Count 361 TH/MM3 Mean Platelet Volume 6.8 FL Sodium Level 141 MEQ/L Potassium Level 3.9 MEQ/L Chloride Level 103 MEQ/L Carbon Dioxide Level 28.4 MEQ/L Anion Gap 10 MEQ/L Blood Urea Nitrogen 6 MG/DL Creatinine 0.65 MG/DL Estimat Glomerular Filtration 129 ML/MIN Rate Random Glucose 117 MG/DL Calcium Level 8.8 MG/DL Physical Exam General General Appearance: Well Developed, Well Nourished, No Acute Distress, Obese Eyes Eye Exam: Pupils Equal, Sclera White, Extraocular Movement Intact Ears & Nose Ears & Nose Exam: Nasal Mucosa [place] Throat Throat Exam: Oral Mucosa [place] & Moist Neck Neck Exam: Neck Supple, Trachea Midline Pulmonary Resp Exam: Breath Sounds Equal, No Distress, Decreased Bases Resp Remarks wheezes minimal Cardiology CV Exam: Regular, Normal Sinus Rhythm Gastrointestinal/Abdomen GI Exam: Non-Tender, Bowel Sounds Present, Positive Bowel Movement, Distended Musculoskeletal MS Exam: Joints Intact MS Remarks Right hip dressing D/I Integumentary Skin Exam: Warm, Dry Extremeties Extremities Exam: Pedal Pulses Palpable, Trace Edema Neurologic Neuro Exam: Alert, Awake, Oriented, Speech Clear, Moving All Extremities, No Focal Deficits Psychiatric Psych Exam: Appropriate Responses VTE Prophylaxis VTE Remarks Eliquis PUD Prophylasis PUD Prophylaxis: Protonix Assessment/Plan Assessment/Plan s/p COPD exacerbation severe advance stage asthma Right hip prosthetic joint /fungal infection Right hip seroma Status post right hip drainage Depression MELIZA/ severe Anxiety acute on chronic Right hip pain Status post upper endoscopy on 11/14/16 New diagnosis of distal esophagitis history for pulmonary embolism and right lower extremity DVT s/p fall R periprosthetic comminuted Fx constipation Anemia Management S/P surgery rt. hip repair, 3-15, form spacer between legs while resting post op ortho care pain management PT eval and tx per ortho orders Continue oxygen Duonebs PO steroids Protonix, PUD prophylaxis Antibiotics per ID/ On micafungin & Diflucan follow cultures Bowel regimen having BMs Anemia, post PRBC transfusion follow HH Hgb 7.7 Low iron stores, start PO supplement Constipated, Mag citrate 1/2 bottle today CM consult for DC planning, wants SNF poss. dc next week labs reviewed D/W RN D/W Dr. Sandoval D/W pt This patient was seen by myself and Dr. Sandoval, this note is written on his behalf Elizabeth Iraheta Nov 24, 2016 12:04
[2016-11-24] MEDS: PCA - TOTAL MG DILAUDID DELIVERED PER SHIFT OTHER SCH ×2 (14:00→20:53)
[2016-11-24] MEDS: ATORVASTATIN 20 MG TAB PO SCH (20:52)
[2016-11-24] MEDS: MICAFUNGIN INJ 150 MG in SODIUM CHLORIDE 0.9% INJ 100 ML IV SCH (20:52)
[2016-11-24] MEDS: MONTELUKAST SODIUM 10 MG TAB PO SCH (20:52)
[2016-11-24] MEDS: FERROUS SULFATE 325 MG (65 MG ELEMENTAL IRON) TAB PO SCH (20:52)
[2016-11-24] MEDS: INSULIN DETEMIR 100 UNITS/ML VIAL SQ SCH (20:53)
[2016-11-25] MEDS: PCA - TOTAL MG DILAUDID DELIVERED PER SHIFT OTHER SCH ×3 (00:17→21:58)
[2016-11-25] MEDS: HYDROCORTISONE/PRAMOXINE RECTAL FOAM 10 GM CAN RECTAL SCH ×4 (00:17→21:59)
[2016-11-25] MEDS: CYCLOBENZAPRINE HCL 10 MG TAB PO PRN ×2 (05:26→13:45)
[2016-11-25] MEDS: SUCRALFATE 1 GM TAB PO SCH ×3 (05:26→17:09)
[2016-11-25] MEDS: INSULIN ASPART SUPPLEMENTAL SCALE SQ SCH ×4 (05:27→21:00)
[2016-11-25] MEDS: ACETAMINOPHEN/HYDROcodone 325 MG/5 MG TAB PO PRN ×5 (05:27→21:49)
[2016-11-25 05:30] LABS: HEMATOCRIT 25.2 % (39.0-51.0)
[2016-11-25] MEDS: RESP: ALBUTEROL 2.5 MG/IPRATROPIUM 0.5 MG NEB (PRN) NEB ×3 (05:52→18:33)
[2016-11-25 05:55] LABS: REVIEW FLAG FINAL
[2016-11-25 07:56] VITALS: BP 142/86; PULSE 107; RESP 18; TEMP 96.3; O2SAT 95
[2016-11-25] MEDS: SODIUM CHLORIDE 0.9% FLUSH 5 ML FLUSH IVF SCH ×2 (09:00→21:58)
[2016-11-25] MEDS: APIXABAN 2.5 MG TABLET PO SCH ×2 (09:45→21:55)
[2016-11-25] MEDS: FUROSEMIDE 40 MG TAB PO SCH ×2 (09:45→17:09)
[2016-11-25] MEDS: POLYETHYLENE GLYCOL 17 GM PKG PO SCH (09:45)
[2016-11-25] MEDS: POTASSIUM CHLORIDE 10 MEQ CONTROLLED RELEASE TAB PO SCH ×2 (09:45→21:52)
[2016-11-25] MEDS: LORazepam 0.5 MG TAB PO SCH ×2 (09:45→21:52)
[2016-11-25] MEDS: DILTIAZEM-CD 180 MG CAP ER PO SCH (09:45)
[2016-11-25] MEDS: FERROUS SULFATE 325 MG (65 MG ELEMENTAL IRON) TAB PO SCH ×2 (09:45→21:52)
[2016-11-25] MEDS: FLUCONAZOLE 200 MG TAB PO SCH (09:45)
[2016-11-25] MEDS: PANTOPRAZOLE SOD 40 MG DELAYED RELEASE TAB PO SCH (09:45)
[2016-11-25] MEDS: predniSONE 10 MG TAB PO SCH ×2 (09:45→21:50)
[2016-11-25] MEDS: BUDESONIDE-FORMOTEROL 160/4.5 MCG INHALER INH SCH ×2 (09:46→22:38)
[2016-11-25] MEDS: DOCUSATE SODIUM 100 MG CAP PO SCH ×2 (09:46→21:52)
[2016-11-25 11:49] VITALS: BP 130/87; PULSE 124; RESP 18; TEMP 98; O2SAT 97
--- NOTE | 2016-11-25 12:18 | HHI.PR ---
Subjective Subjective Remarks SOB minimal some wheezing ambulated in hallway no fever pain stable no cp had BM Review of Systems Constitutional Constitutional Remarks 12 point ROS completed, negative except as noted above Vitals/Results Intake & Output 11/24/16 11/24/16 11/25/16 15:00 23:00 07:00 Intake Total 960 ml 960 ml 480 ml Output Total 1600 ml 1650 ml Balance 960 ml -640 ml -1170 ml Intake Oral 960 ml 960 ml 480 ml Output Urine Total 1600 ml 1650 ml # Voids 5 # Bowel Movements 2 0 0 Vital Signs Vital Signs Date Time Temp Pulse Resp B/P Pulse Ox O2 Delivery O2 Flow Rate FiO2 11/25/16 07:56 96.3 107 18 142/86 95 11/24/16 23:00 97.7 107 18 151/84 97 11/24/16 20:55 97.6 112 18 142/85 98 11/24/16 16:00 96.7 106 18 133/97 100 CBC/BMP: 11/25/16 0516 11/24/16 0609 Lab Results Laboratory Tests Test 11/25/16 05:16 Hemoglobin 8.0 GM/DL Hematocrit 25.2 % Physical Exam General General Appearance: Well Developed, Well Nourished, No Acute Distress, Obese Eyes Eye Exam: Pupils Equal, Sclera White, Extraocular Movement Intact Ears & Nose Ears & Nose Exam: Nasal Mucosa [place] Throat Throat Exam: Oral Mucosa [place] & Moist Neck Neck Exam: Neck Supple, Trachea Midline Pulmonary Resp Exam: Breath Sounds Equal, No Distress, Decreased Bases Resp Remarks wheezes minimal Cardiology CV Exam: Regular, Normal Sinus Rhythm Gastrointestinal/Abdomen GI Exam: Non-Tender, Bowel Sounds Present, Positive Bowel Movement, Distended Musculoskeletal MS Exam: Joints Intact MS Remarks Right hip dressing D/I Integumentary Skin Exam: Warm, Dry Extremeties Extremities Exam: Pedal Pulses Palpable, Trace Edema Neurologic Neuro Exam: Alert, Awake, Oriented, Speech Clear, Moving All Extremities, No Focal Deficits Psychiatric Psych Exam: Appropriate Responses VTE Prophylaxis VTE Remarks Eliquis PUD Prophylasis PUD Prophylaxis: Protonix Assessment/Plan Assessment/Plan s/p COPD exacerbation severe advance stage asthma Right hip prosthetic joint /fungal infection Right hip seroma Status post right hip drainage Depression MELIZA/ severe Anxiety acute on chronic Right hip pain Status post upper endoscopy on 11/14/16 New diagnosis of distal esophagitis history for pulmonary embolism and right lower extremity DVT s/p fall R periprosthetic comminuted Fx constipation Anemia Management S/P surgery rt. hip repair, 3-15, form spacer between legs while resting post op ortho care pain management PT eval and tx per ortho orders Continue oxygen Duonebs PO steroids Protonix, PUD prophylaxis Antibiotics per ID/ On micafungin & Diflucan follow cultures Bowel regimen having BMs Anemia, post PRBC transfusion follow HH Hgb 7.7 Low iron stores, start PO supplement Constipated, had BM after mag citrate DC planning, now wants HHC will need ID recommendations still receiving duonebs q 4-6 hours ambulating 120 feet ok to transfer to [place] D/W RN D/W Dr. Sandoval D/W pt D/W CM This patient was seen by myself and Dr. Sandoval, this note is written on his behalf Elizabeth Iraheta Nov 25, 2016 12:18
--- NOTE | 2016-11-25 16:09 | HHI.PR ---
Subjective Remarks no sob no fever or chill no cough or sputum OCCASIONAL WHEEZE fell , right HIP FX , doing well post OP Objective Vital Signs Date Time Temp Pulse Resp B/P Pulse Ox O2 Delivery O2 Flow Rate FiO2 11/25/16 11:49 98.0 124 18 130/87 97 11/25/16 07:56 96.3 107 18 142/86 95 11/24/16 23:00 97.7 107 18 151/84 97 11/24/16 20:55 97.6 112 18 142/85 98 I/O 11/24/16 11/24/16 11/24/16 11/25/16 11/25/16 11/25/16 07:00 15:00 23:00 07:00 15:00 23:00 Intake Total 720 ml 960 ml 960 ml 480 ml Output Total 1325 ml 1600 ml 1650 ml Balance -605 ml 960 ml -640 ml -1170 ml Intake Oral 720 ml 960 ml 960 ml 480 ml Output Urine Total 1325 ml 1600 ml 1650 ml # Voids 5 # Bowel Movements 0 2 0 0 Result Diagram: 11/25/16 0516 11/24/16 0609 Objective Remarks GENERAL: SKIN: Warm and dry. HEAD: Atraumatic. Normocephalic. EYES: Pupils equal and round. No scleral icterus. No injection or drainage. ENT: No nasal bleeding or discharge. Mucous membranes pink and moist. NECK: Trachea midline. No JVD. CARDIOVASCULAR: Regular rate and rhythm. RESPIRATORY: No accessory muscle use. Clear to auscultation. Breath sounds equal bilaterally. GASTROINTESTINAL: Abdomen soft, non-tender, nondistended. Hepatic and splenic margins not palpable. MUSCULOSKELETAL: Extremities without clubbing, cyanosis, or edema. No obvious deformities. NEUROLOGICAL: Awake and alert. No obvious cranial nerve deficits. Motor grossly within normal limits. Five out of 5 muscle strength in the arms and legs. Normal speech. PSYCHIATRIC: Appropriate mood and affect; insight and judgment normal. Assessment and Plan Assessment and Plan pulm improving with occasional wheeze DVT/PE ON COUMADIN HIP fx , surgery done well tolerated plan ContIinue O2 therapy INCREASE ACTIVITY bronchodilators taper steroids as tolerated TO REHAB TODAY Mary Hernandez MD Nov 25, 2016 16:09
[2016-11-25 16:30] VITALS: BP 139/89; PULSE 104; RESP 18; TEMP 96.2; O2SAT 98
--- NOTE | 2016-11-25 17:27 | HHI.PR ---
Addendum to Inpatient Note Additional Information will cont diflucan 400 mg daily + micafungin 150 mg daily x 6 weeks from the date of surgery fu CBC creatinine and LFTs weekly FU fungal clx untill final FU ESR OK to dc from ID standpoint Marizol Morris MD Nov 25, 2016 17:27
--- NOTE | 2016-11-25 17:28 | HHI.FF ---
Infusion Therapy Location of Infusion Therapy: [facility] IV Infusion Order Patient Information Patient Weight 103.1 kg Diagnosis: (1) Septic arthritis Coded Allergies: Tetracycline (Verified Allergy, Severe, throat swells, 09/29/16) Demerol (Verified Allergy, Intermediate, hallucinations, 09/29/16) Administer Medication Micafungin 150 mg IV q 24 hours Start Treatment: Nov 26, 2016 Stop Treatment: Dec 31, 2016 Additional Information Venous access: PICC Line Additional Instructions [x] Peripheral flush and dressing changes per protocol [x] Implanted port and central guyline operator: * Implanted port: 10 ml Normal Saline followed by 5 ml Heparin 100 units/ml Heparin flush after each use and monthly to maintain. [] May leave port accessed during therapy. [] May leave peripheral site accessed for duration of therapy. [x] If patient has SOB or respiratory distress, check oxygen saturation. If less than 90% or clinical signs of respiratory distress, administer oxygen at 2 L/min. via nasal cannula and notify physician. [x] Anaphylaxis/Reaction orders: * Stop infusion. * Keep IV line open with saline flush. * Notify physician. * Monitor vital signs every 15 minutes until symptoms resolve. * Check Oxygen saturation; Oxygen at 2 L/min. via nasal cannula if less than 90% or clinical signs of respiratory distress. * Administer diphenhydramine (Benadryl) 25 mg IV STAT, (unless patient has received as pre-med). May repeat once, if necessary. * Solu-Cortef 250 mg IVP over 30-60 seconds, use 100 mg vials for each dissolution. * Epinephrine (1mg/1 ml) 0.3 mg subcutaneously or IVP now with any signs of respiratory distress. * Check with physician for new additional pre-med orders if patient is re- challenged or re-treated. [x] May remove PICC line when treatment complete, after confirming with Physician. [x] If the patient is admitted to the hospital, the ED, or transferred via [facility] , complete transfer form including medication reconciliation order sheet. Laboratory Tests Weekly Labs: CBC w/diff, Creatinine, LFT's (Hepatic function test), SED Rate Arturo,Marizol A. MD Nov 25, 2016 17:28
[2016-11-25 20:00] VITALS: BP 133/104; PULSE 118; RESP 20; TEMP 97.4; O2SAT 98
[2016-11-25] MEDS: MICAFUNGIN INJ 150 MG in SODIUM CHLORIDE 0.9% INJ 100 ML IV SCH (21:51)
[2016-11-25] MEDS: MONTELUKAST SODIUM 10 MG TAB PO SCH (21:52)
[2016-11-25] MEDS: ATORVASTATIN 20 MG TAB PO SCH (21:52)
[2016-11-25] MEDS: INSULIN DETEMIR 100 UNITS/ML VIAL SQ SCH (21:53)
[2016-11-26] MEDS: PCA - TOTAL MG DILAUDID DELIVERED PER SHIFT OTHER SCH ×3 (02:52→22:00)
[2016-11-26] MEDS: HYDROmorphone HCL PF 1 MG/ML VIAL IV PUSH PRN ×5 (03:00→21:49)
[2016-11-26 06:14] LABS: ALT (GPT) 123 U/L (12-78); AST (GOT) 37 U/L (15-37)
[2016-11-26 06:16] LABS: INDIRECT BILIRUBIN 0.2 MG/DL (0.0-0.8); TOTAL BILIRUBIN ADULT 0.3 MG/DL (0.2-1.0)
[2016-11-26 06:17] LABS: ALKALINE PHOSPHATASE 128 U/L (45-117)
[2016-11-26] MEDS: SUCRALFATE 1 GM TAB PO SCH ×3 (06:40→17:26)
[2016-11-26] MEDS: INSULIN ASPART SUPPLEMENTAL SCALE SQ SCH ×4 (06:41→23:02)
[2016-11-26 08:00] VITALS: BP 140/96; PULSE 98; RESP 16; TEMP 98; O2SAT 97
--- NOTE | 2016-11-26 08:03 | PD.ORT.PN ---
Subjective Post Op Day #: 6 Pain Scale: ok Subjective Remarks knee better, but still hurts Hip draining Objective Vitals Vital Signs Date Time Temp Pulse Resp B/P Pulse Ox O2 Delivery O2 Flow Rate FiO2 11/26/16 03:30 16 11/25/16 22:49 18 11/25/16 20:00 97.4 118 20 133/104 98 11/25/16 16:30 96.2 104 18 139/89 98 11/25/16 11:49 98.0 124 18 130/87 97 I/O 11/25/16 11/25/16 11/25/16 11/26/16 11/26/16 11/26/16 07:00 15:00 23:00 07:00 15:00 23:00 Intake Total 480 ml 1200 ml 240 ml 580 ml Output Total 1650 ml 500 ml Balance -1170 ml 1200 ml 240 ml 80 ml Intake Oral 480 ml 1200 ml 240 ml 580 ml Output Urine Total 1650 ml 500 ml # Voids 6 0 # Bowel Movements 0 1 0 0 Result Diagram: 11/25/16 0516 11/24/16 0609 Imaging Microbiology Date/Time Procedure Status Source Growth 11/20/16 17:28 Gram Stain - Final Resulted Wound Hip 11/20/16 17:28 Wound Culture - Preliminary Resulted Wound Hip NO GROWTH IN 24 HOURS. 11/20/16 17:28 Fungal Smear - Final Resulted Wound Hip NO FUNGAL ELEMENTS SEEN. 11/20/16 17:28 Fungal Culture Resulted Wound Hip Pending 11/20/16 17:28 Acid Fast Stain Received Wound Hip Pending 11/20/16 17:28 Mycobacterial Culture Received Wound Hip Pending Microbiology Date/Time Procedure Status Source Growth 11/20/16 17:28 Gram Stain - Final Resulted Wound Hip 11/20/16 17:28 Wound Culture Resulted Wound Hip Pending 11/20/16 17:28 Fungal Smear - Final Resulted Wound Hip NO FUNGAL ELEMENTS SEEN. 11/20/16 17:28 Fungal Culture Resulted Wound Hip Pending 11/20/16 17:28 Acid Fast Stain Received Wound Hip Pending 11/20/16 17:28 Mycobacterial Culture Received Wound Hip Pending Last 72 hours Impressions Hip X-Ray 11/20/16 0000 Signed Impressions: Service Date/Time: Sunday, November 20, 2016 22:03 - CONCLUSION: Postsurgical changes are noted. Trae Cano MD Last 72 hours Impressions Chest X-Ray 11/12/16 0000 Signed Impressions: Service Date/Time: Saturday, November 12, 2016 12:56 - CONCLUSION: No acute disease. Davion Carranza MD Abdomen/Pelvis CT 11/12/16 0000 Signed Impressions: Service Date/Time: Saturday, November 12, 2016 08:59 - CONCLUSION: 1. Wall thickening along the lateral cecum. Colonoscopy may be warranted. No acute inflammatory process. 2. No renal calculi or hydronephrosis. 3. Copious amount of stool throughout the large bowel. Davion Carranza MD Hip and Pelvis X-Ray 11/11/16 0000 Signed Impressions: Service Date/Time: Friday, November 11, 2016 19:32 - CONCLUSION: No acute radiographic abnormality right bipolar hip arthroplasty. Adin Kendall MD Last 24 hours Impressions Hip MRI 10/02/16 0000 Signed Impressions: Service Date/Time: Sunday, October 02, 2016 09:13 - CONCLUSION: 12 cm collection in the right hip and buttock region, likely hematoma/seroma. The lesion could certainly be drained or sampled without difficulty under CT guidance. Adin Guillermo MD Objective Remarks In PO facility now. In bed. Comfortable. Abduction pillow absent. Moves toes well. Right knee seems better. Right hip : serous drainage moderate No redness. Induration improved. PICC line out. Assessment & Plan Ortho Post Op Day #: 6 Problem List: Assessment and Plan 6 days post revision MARLENY and ORIF. Needs Iv antifungals 5 more weks. To put new PICC line. Needs daily dressings To use abduction pillow. Physical therapy ordered. Shaan Lindo MD Nov 26, 2016 08:02
--- NOTE | 2016-11-26 08:17 | HHI.PR ---
Subjective History of Present Illness Patient have sever wheezing not able to walk because of SOB/ Wheezing. ..holding coumadin INR 1.0 monitoring INR Right hip pain better. . high LFTs monitoring Review of Systems GI/Abdomen GI/Abdomen Remarks rectal bleeding. Musculoskeletal MS Remarks Right Hip pain/ swelling. Integumentary Skin Remarks right hip bruise. Vitals/Results Intake & Output 11/25/16 11/25/16 11/26/16 15:00 23:00 07:00 Intake Total 1200 ml 240 ml 580 ml Output Total 500 ml Balance 1200 ml 240 ml 80 ml Intake Oral 1200 ml 240 ml 580 ml Output Urine Total 500 ml # Voids 6 0 # Bowel Movements 1 0 0 Vital Signs Vital Signs Date Time Temp Pulse Resp B/P Pulse Ox O2 Delivery O2 Flow Rate FiO2 11/26/16 03:30 16 11/25/16 22:49 18 11/25/16 20:00 97.4 118 20 133/104 98 11/25/16 16:30 96.2 104 18 139/89 98 11/25/16 11:49 98.0 124 18 130/87 97 CBC/BMP: 11/25/16 0516 11/24/16 0609 Lab Results Laboratory Tests Test 11/26/16 05:45 Total Bilirubin 0.3 MG/DL Direct Bilirubin LESS THAN 0.1 MG/DL Indirect Bilirubin 0.2 MG/DL Aspartate Amino Transf 37 U/L (AST/SGOT) Alanine Aminotransferase 123 U/L (ALT/SGPT) Alkaline Phosphatase 128 U/L Total Protein 5.7 GM/DL Albumin 2.7 GM/DL Physical Exam General General Appearance: Well Developed, Well Nourished, No Acute Distress, Obese Eyes Eye Exam: Pupils Equal, Sclera White, Extraocular Movement Intact Ears & Nose Ears & Nose Exam: Nasal Mucosa [place] Throat Throat Exam: Oral Mucosa [place] & Moist Neck Neck Exam: Neck Supple, Trachea Midline Pulmonary Resp Exam: Breath Sounds Equal, No Distress, Decreased Bases Resp Remarks Sever Bilateral Wheezing. Cardiology CV Exam: Regular, Normal Sinus Rhythm Gastrointestinal/Abdomen GI Exam: Non-Tender, Bowel Sounds Present, Positive Bowel Movement, Distended Musculoskeletal MS Exam: Joints Intact MS Remarks s/p right hip surgery. Integumentary Skin Exam: Warm, Dry Extremeties Extremities Exam: Pedal Pulses Palpable, Trace Edema Neurologic Neuro Exam: Alert, Awake, Oriented, Speech Clear, Moving All Extremities, No Focal Deficits Psychiatric Psych Exam: Appropriate Responses PUD Prophylasis PUD Prophylaxis: Protonix Assessment/Plan Assessment/Plan s/p COPD exacerbation severe advance stage asthma Right hip prosthetic joint /fungal infection Right hip seroma Status post right hip drainage Depression MELIZA/ severe Anxiety acute on chronic Right hip pain Status post upper endoscopy on 11/14/16 New diagnosis of distal esophagitis history for pulmonary embolism and right lower extremity DVT s/p fall R periprosthetic comminuted Fx constipation Anemia Management S/P surgery rt. hip repair, 3-15, form spacer between legs while resting post op ortho care pain management PT eval and tx per ortho orders Continue oxygen Duonebs PO steroids Protonix, PUD prophylaxis Antibiotics per ID/ On micafungin & Diflucan follow cultures Bowel regimen having BMs Anemia, post PRBC transfusion follow HH Hgb 7.7 Low iron stores, on PO supplement Constipated, had BM after mag citrate DC planning, now wants HHC will need ID recommendations still receiving duonebs q 4-6 hours This patient was seen by myself and Dr. Sandoval, this note is written on his behalf Discussed Condition with: Patient Myron Woodward MD Nov 26, 2016 08:17 Myron Woodward MD Nov 26, 2016 08:17
[2016-11-26 08:48] VITALS: O2SAT 97
[2016-11-26] MEDS: RESP: ALBUTEROL 2.5 MG/IPRATROPIUM 0.5 MG NEB (PRN) NEB ×3 (08:48→20:29)
[2016-11-26] MEDS: HYDROCORTISONE/PRAMOXINE RECTAL FOAM 10 GM CAN RECTAL SCH ×2 (09:00→16:54)
[2016-11-26] MEDS: POLYETHYLENE GLYCOL 17 GM PKG PO SCH (09:09)
[2016-11-26] MEDS: DOCUSATE SODIUM 100 MG CAP PO SCH ×2 (09:09→23:00)
[2016-11-26] MEDS: FUROSEMIDE 40 MG TAB PO SCH ×2 (09:09→17:26)
[2016-11-26] MEDS: FLUCONAZOLE 200 MG TAB PO SCH (09:09)
[2016-11-26] MEDS: predniSONE 10 MG TAB PO SCH ×2 (09:09→23:00)
[2016-11-26] MEDS: LORazepam 0.5 MG TAB PO SCH ×2 (09:09→22:59)
[2016-11-26] MEDS: PANTOPRAZOLE SOD 40 MG DELAYED RELEASE TAB PO SCH (09:09)
[2016-11-26] MEDS: DILTIAZEM-CD 180 MG CAP ER PO SCH (09:09)
[2016-11-26] MEDS: FERROUS SULFATE 325 MG (65 MG ELEMENTAL IRON) TAB PO SCH ×2 (09:10→23:00)
[2016-11-26] MEDS: POTASSIUM CHLORIDE 10 MEQ CONTROLLED RELEASE TAB PO SCH ×2 (09:10→22:59)
[2016-11-26] MEDS: APIXABAN 2.5 MG TABLET PO SCH ×2 (09:10→22:59)
[2016-11-26] MEDS: BUDESONIDE-FORMOTEROL 160/4.5 MCG INHALER INH SCH ×2 (09:11→22:58)
[2016-11-26] MEDS: CYCLOBENZAPRINE HCL 10 MG TAB PO PRN (11:36)
[2016-11-26] MEDS: SODIUM CHLORIDE 0.9% FLUSH 5 ML FLUSH IVF SCH ×2 (11:39→22:58)
[2016-11-26] MEDS ORDERED: SODIUM CHLORIDE 0.9% FLUSH 10 ML FLUSH IV FLUSH PRN ×2 (13:45)
--- NOTE | 2016-11-26 14:34 | RADHPO ---
EXAM DATE/TIME: 11/26/2016 13:33 [facility] COMPARISON: CHEST SINGLE AP, September 29, 2016, 11:14. INDICATIONS : PICC line placement. MEDICAL HISTORY : Diabetes mellitus type II. Hypertension. Chronic obstructive pulmonary disease. Asthma. SURGICAL HISTORY : ENCOUNTER: Subsequent ACUITY: 1 day PAIN SCORE: 0/10 LOCATION: Bilateral chest FINDINGS: A right-sided PICC line has its tip in the superior vena cava. There is no focal infiltrate or pulmo nary vascular congestion. The heart is normal. CONCLUSION: 1. No acute cardiopulmonary disease. 2. Right-sided PICC line has its tip in good position in the superior vena cava. Samuel King MD on November 26, 2016 at 14:19 Board Certified Radiologist. This report was verified electronically.
[2016-11-26] MEDS: METHYLNALTREXONE BROMIDE 12 MG/0.6 ML VIAL SQ SCH (15:45)
[2016-11-26 20:00] VITALS: BP 134/93; PULSE 120; RESP 20; TEMP 97.6; O2SAT 98
[2016-11-26 20:29] VITALS: O2SAT 97
[2016-11-26] MEDS: MICAFUNGIN INJ 150 MG in SODIUM CHLORIDE 0.9% INJ 100 ML IV SCH (20:31)
[2016-11-26] MEDS: MONTELUKAST SODIUM 10 MG TAB PO SCH (23:00)
[2016-11-26] MEDS: ATORVASTATIN 20 MG TAB PO SCH (23:01)
[2016-11-26] MEDS: INSULIN DETEMIR 100 UNITS/ML VIAL SQ SCH (23:01)
[2016-11-26] MEDS: ACETAMINOPHEN/HYDROcodone 325 MG/5 MG TAB PO PRN (23:07)
--- NOTE | 2016-11-26 23:22 | MP ---
cc: JES LINDO M.D. DATE OF SURGERY: 11/20/2016 PREOPERATIVE DIAGNOSIS: 1. Periprosthetic fracture, right proximal femur. 2. Three months status post introduction of a Prostalac hip replacement for theo infection, right hip, with osteomyelitis. POSTOPERATIVE DIAGNOSIS: 1. Periprosthetic fracture, right proximal femur. 2. Three months status post introduction of a Prostalac hip replacement for theo infection, right hip, with osteomyelitis. OPERATION: Open reduction, internal fixation periprosthetic fracture, (proximal femur fracture), right hip. Revision total hip replacement using the following [employer] components: Cup 56 millimeter with dome screws, polyethylene liner, high wall 36 millimeter inside diameter. LUCILA revision femoral stem with a size 3/60 millimeter proximal body, and a 14 millimeter x 150 millimeter STS stem. Head: Ceramic 36 mm standard neck length. Synthes trochanteric plate with proximal and distal cables and a derotation bolt. SURGEON Dr. Lindo. ANESTHESIA: General. TECHNIQUE After induction of general anesthesia the patient placed in the right lateral position supported Biomet hip positioners. Strict lateral position was ascertained. Right hip and lower extremity was then shaved and then prepped with alcohol followed by a thorough preparation with Hibiclens and draped in routine fashion using double Ioban drapes. The entire previous scar was used for the surgical incision and extended distally to be able to put a trochanteric plate. The incision was deepened through subcutaneous tissue down to fascia. There was some devitalized muscular tissue probably due to the fall with some dehiscence of fascia but no fluid or purulence noted anywhere. Some of this tissue was removed and sent for pathology, and then eventually three specimens were used and each split up for microbiology and frozen section. Later on a fourth specimen was sent of tissue because of the pathologist's request that the previous tissue was inadequate. The tissue planes were quite obscured because of two previous surgeries and, therefore, care was taken to stay away from the sciatic nerve with it being somewhat enmeshed with the undersurface, somewhat enmeshed deep to the gluteus ridhdi. There was a lot of fibrinous debris around the artificial joint and these were all removed. Once we had sufficient tissue obtained, the patient received two grams of Ancef and 1500 milligrams of vancomycin. Careful dissection was carried out with debriding around the prosthetic hip joint and protecting the gluteus medius at the same time, self-retaining retractor was introduced. The joint was cleaned out and then we proceeded to remove the implants with an oscillating saw and osteotomes to remove the peripheral section of the polyethylene cup, thereby enabling dislocation of this artificial hip joint. A skid was introduced and then we tapped out the femoral component, the head and the stem with the attached cement. We then proceeded to dislodge the polyethylene cup by punching with an osteotome. The cement mantle was intact. It was also tapped out without any damage to bone and all the tissue here was removed. Established exposure was now obtained and the sequential reaming was carried out, and then a 56 millimeter Elkin cup was impacted in place, getting very good fit and position. The stride for about 40 to 45 degrees of abduction and 20 degrees of anteversion. Dome screws were introduced. The high wall polyethylene liner was then impacted in place with a build up posterior ____. We then proceeded to expose the fracture of the femur and the fascial incision was extended. The vastus lateralis of the fascia was incised close to the linea aspera. Limited subperiosteal dissection of the femur was carried out getting exposure distal to the fracture site. The fracture site was completely displaced with a long spike of posterior medial fragment including the lesser trochanter. The greater trochanter was a separate fragment but not grossly displaced. The shaft fragments were delineated. Prior to reducing the fracture, however, the intramedullary canal distally was checked. A loose piece of cement was removed, but the cement plug firmly obstructing the distal canal and therefore the [employer] instrumentation had to be used to drill and screw in the remover and then tap the cement plug out. We were now able to clear out the distal canal. We then proceeded to reduce this fracture and hold them with two 1 millimeter cables, getting really surprisingly good temporary fixation of all the fragments and near anatomic position. We then proceeded to prepare the femur to receive the implants and the hand reamers for the STS system were used, the 14 millimeter reamer gets a good fit, 14 millimeter trial was tried and then a 14 millimeter STS stem was tapped in to the 60 millimeter indu. Proximal reaming was carried out to the size 3 proximal body and a temporary body was applied but we could not get it screwed in at any rate. Eventually we ended up removing the STS stem, assemblying the implants outside the bone. We mated a #3 60 millimeter body through the STS taper securely and then implanted it into the shaft of the femur getting excellent fit and good alignment proximally. We placed this in about 20 degrees of anteversion. Trial reduction was now carried out with the 36-mm head with the -3 ball, everything looks great, length looks good. The stability is good and there is no impingement. The hip was dislocated. The 36 mm ceramic ball, standard neck length was impacted in place. Final reduction was carried out getting good position, alignment, stability and leg lengths. It should be noted here that prior to the trial reduction, additional fixation of the shaft was obtained with the use of a trochanteric plate which was impacted onto the top of the trochanter. This is a Synthes plate which was secured to the shaft with one proximal and one distal cable. The previously applied cables were retightened and the joints crimped. Final reduction was carried out and the rest of the cables were crimped and the cables cut. Final position, alignment, stability are all good. The stem goes sufficiently beyond the fracture site. The plate gives additional fixation of these fractures. C-arm fluoroscopic imaging was used throughout the procedure as needed. The wound was thoroughly irrigated with saline solution. By this time we got the report from the laboratory that the Gram stains were negative for any significant red cells, white cells or bacteria. The final frozen section which was sent as tissue was negative for acute inflammation. The previous three tissues were also negative but the pathologist was concerned that the specimens were mostly fibrin. Hemostasis was good. The fascia was closed with #2 Vicryl and #2 Stratafix. Subcutaneous tissue being that it was indurated and thick, was closed with #2 Stratafix so as not to put any abraded sutures there. Skin was closed with lamar. Dressing applied with Xeroform, 4x4s, ABD and Medipore tape. Abduction pillow applied. The patient transferred to the recovery room in satisfactory condition. The patient tolerated the procedure well. TRANSFUSIONS: None. COMPLICATIONS None. POSTOPERATIVE CONDITION Satisfactory PROGNOSIS Guarded. The patient will be continued on the antifungal. The cultures will be followed. The patient received a unit of packed cells during the procedure. ESTIMATED BLOOD LOSS: Approximately about 500 mL. The patient was anemic to start with. It should be noted that the patient was complaining of a lot of pain in his right knee in the preop holding area, and his knee was noted to be somewhat swollen and indurated, and he was complaining of a lot of pain there. When he was under anesthesia, I examined the knee and there was no evidence of any instability. Fluoroscopic imaging of the distal femur, knee and proximal tibia was carried out in AP and lateral views prior to turning him on his side and these fluoroscopic images were negative for any fracture or subluxation. MD PETE Christiansen/MERYL /5:08 PM /10:44 PM
[2016-11-27] VITALS: BP 143/91; PULSE 112; RESP 20; TEMP 97; O2SAT 99
[2016-11-27] MEDS: HYDROCORTISONE/PRAMOXINE RECTAL FOAM 10 GM CAN RECTAL SCH ×3 (00:31→17:00)
[2016-11-27] MEDS: HYDROmorphone HCL PF 1 MG/ML VIAL IV PUSH PRN ×4 (03:04→21:01)
[2016-11-27] MEDS: PCA - TOTAL MG DILAUDID DELIVERED PER SHIFT OTHER SCH ×2 (04:08→22:00)
[2016-11-27] MEDS: SUCRALFATE 1 GM TAB PO SCH ×3 (05:56→17:00)
[2016-11-27] MEDS: INSULIN ASPART SUPPLEMENTAL SCALE SQ SCH ×4 (06:03→20:46)
[2016-11-27] MEDS: ACETAMINOPHEN/HYDROcodone 325 MG/5 MG TAB PO PRN ×3 (06:04→17:38)
[2016-11-27 06:23] LABS: AUTOMATED NEUTROPHIL # 9.7 TH/MM3 (1.8-7.7); BASOPHIL % 0.3 % (0.0-2.0); EOSINOPHIL # 0.1 TH/MM3 (0-0.4); EOSINOPHIL % 0.8 % (0.0-4.0); HEMATOCRIT 26.1 % (39.0-51.0); LYMPH % 9.9 % (9.0-44.0); LYMPHOCYTE # 1.1 TH/MM3 (1.0-4.8); MEAN CELL VOLUME 77.5 FL (80.0-100.0); MEAN CORPUSCULAR HEMOGLOBIN 24.4 PG (27.0-34.0); MEAN CORPUSCULAR HGB CONC 31.5 % (32.0-36.0); MONO % 5.5 % (0.0-8.0); NEUT % 83.5 % (16.0-70.0); PLATELET COUNT 431 TH/MM3 (150-450); RED BLOOD COUNT 3.37 MIL/MM3 (4.50-5.90); RED CELL DISTRIBUTION WIDTH 23.3 % (11.6-17.2); WHITE BLOOD COUNT 11.5 TH/MM3 (4.0-11.0)
[2016-11-27 06:27] LABS: CHLORIDE 103 MEQ/L (98-107); POTASSIUM 3.7 MEQ/L (3.5-5.1); SODIUM (NA) 142 MEQ/L (136-145)
[2016-11-27 06:31] LABS: ANION GAP 11 MEQ/L (5-15); BICARBONATE 28.3 MEQ/L (21.0-32.0); BLOOD UREA NITROGEN 14 MG/DL (7-18)
[2016-11-27 06:32] LABS: HEMO FLAGS AUTO DIFF
[2016-11-27 06:34] LABS: ALT (GPT) 97 U/L (12-78); AST (GOT) 24 U/L (15-37); GLOMERULAR FILTRATION RATE 125 ML/MIN (>89)
[2016-11-27 06:36] LABS: TOTAL BILIRUBIN ADULT 0.2 MG/DL (0.2-1.0)
[2016-11-27 06:37] LABS: ALKALINE PHOSPHATASE 131 U/L (45-117)
[2016-11-27 07:51] LABS: OVALOCYTES 1+ (NORMAL); SCAN/DIFF AUTO DIFF CONFIRMED
[2016-11-27 08:00] VITALS: BP 131/98; PULSE 103; RESP 20; TEMP 96.2; O2SAT 98
--- NOTE | 2016-11-27 08:18 | HHI.PR ---
Subjective History of Present Illness Patient have sever wheezing not able to walk because of SOB/ Wheezing. ..holding coumadin INR 1.0 monitoring INR Right hip pain better. . high LFTs monitoring Review of Systems GI/Abdomen GI/Abdomen Remarks rectal bleeding. Musculoskeletal MS Remarks Right Hip pain/ swelling. Integumentary Skin Remarks right hip bruise. Vitals/Results Intake & Output 11/26/16 11/26/16 11/27/16 15:00 23:00 07:00 Intake Total 720 ml 480 ml 480 ml Output Total 750 ml 700 ml Balance -30 ml 480 ml -220 ml Intake Oral 720 ml 480 ml 480 ml Output Urine Total 750 ml 700 ml # Voids 2 2 # Bowel Movements 0 0 Vital Signs Vital Signs Date Time Temp Pulse Resp B/P Pulse Ox O2 Delivery O2 Flow Rate FiO2 11/27/16 00:00 97.0 112 20 143/91 99 11/26/16 20:29 97 21 11/26/16 20:00 97.6 120 20 134/93 98 11/26/16 16:16 20 11/26/16 08:48 97 21 CBC/BMP: 11/27/16 0600 11/27/16 0600 Lab Results Laboratory Tests Test 11/27/16 06:00 White Blood Count 11.5 TH/MM3 Red Blood Count 3.37 MIL/MM3 Hemoglobin 8.2 GM/DL Hematocrit 26.1 % Mean Corpuscular Volume 77.5 FL Mean Corpuscular Hemoglobin 24.4 PG Mean Corpuscular Hemoglobin 31.5 % Concent Red Cell Distribution Width 23.3 % Platelet Count 431 TH/MM3 Mean Platelet Volume 6.0 FL Neutrophils (%) (Auto) 83.5 % Lymphocytes (%) (Auto) 9.9 % Monocytes (%) (Auto) 5.5 % Eosinophils (%) (Auto) 0.8 % Basophils (%) (Auto) 0.3 % Neutrophils # (Auto) 9.7 TH/MM3 Lymphocytes # (Auto) 1.1 TH/MM3 Monocytes # (Auto) 0.6 TH/MM3 Eosinophils # (Auto) 0.1 TH/MM3 Basophils # (Auto) 0.0 TH/MM3 CBC Comment AUTO DIFF Differential Comment AUTO DIFF CONFIRMED Ovalocytes 1+ Sodium Level 142 MEQ/L Potassium Level 3.7 MEQ/L Chloride Level 103 MEQ/L Carbon Dioxide Level 28.3 MEQ/L Anion Gap 11 MEQ/L Blood Urea Nitrogen 14 MG/DL Creatinine 0.67 MG/DL Estimat Glomerular Filtration 125 ML/MIN Rate Random Glucose 145 MG/DL Calcium Level 8.6 MG/DL Total Bilirubin 0.2 MG/DL Aspartate Amino Transf 24 U/L (AST/SGOT) Alanine Aminotransferase 97 U/L (ALT/SGPT) Alkaline Phosphatase 131 U/L Total Protein 5.6 GM/DL Albumin 2.8 GM/DL Physical Exam General General Appearance: Well Developed, Well Nourished, No Acute Distress, Obese Eyes Eye Exam: Pupils Equal, Sclera White, Extraocular Movement Intact Ears & Nose Ears & Nose Exam: Nasal Mucosa [place] Throat Throat Exam: Oral Mucosa [place] & Moist Neck Neck Exam: Neck Supple, Trachea Midline Pulmonary Resp Exam: Breath Sounds Equal, No Distress, Decreased Bases Resp Remarks Sever Bilateral Wheezing. Cardiology CV Exam: Regular, Normal Sinus Rhythm Gastrointestinal/Abdomen GI Exam: Non-Tender, Bowel Sounds Present, Positive Bowel Movement, Distended Musculoskeletal MS Exam: Joints Intact MS Remarks s/p right hip surgery. Integumentary Skin Exam: Warm, Dry Extremeties Extremities Exam: Pedal Pulses Palpable, Trace Edema Neurologic Neuro Exam: Alert, Awake, Oriented, Speech Clear, Moving All Extremities, No Focal Deficits Psychiatric Psych Exam: Appropriate Responses PUD Prophylasis PUD Prophylaxis: Protonix Assessment/Plan Assessment/Plan s/p COPD exacerbation severe advance stage asthma Right hip prosthetic joint /fungal infection Right hip seroma Status post right hip drainage Depression MELIZA/ severe Anxiety acute on chronic Right hip pain Status post upper endoscopy on 11/14/16 New diagnosis of distal esophagitis history for pulmonary embolism and right lower extremity DVT s/p fall R periprosthetic comminuted Fx constipation Anemia Management S/P surgery rt. hip repair, 3-15, form spacer between legs while resting post op ortho care pain management PT eval and tx per ortho orders Continue oxygen Duonebs PO steroids Protonix, PUD prophylaxis Antibiotics per ID/ On micafungin & Diflucan follow cultures Bowel regimen having BMs Anemia, post PRBC transfusion follow HH Hgb 7.7 Low iron stores, on PO supplement Constipated, had BM after mag citrate DC planning, now wants HHC will need ID recommendations still receiving duonebs q 4-6 hours This patient was seen by myself and Dr. Sandoval, this note is written on his behalf Myron Woodward MD Nov 27, 2016 08:18
[2016-11-27] MEDS: POTASSIUM CHLORIDE 10 MEQ CONTROLLED RELEASE TAB PO SCH ×2 (08:49→20:52)
[2016-11-27] MEDS: PANTOPRAZOLE SOD 40 MG DELAYED RELEASE TAB PO SCH (08:49)
[2016-11-27] MEDS: DILTIAZEM-CD 180 MG CAP ER PO SCH (08:49)
[2016-11-27] MEDS: predniSONE 10 MG TAB PO SCH ×2 (08:49→20:52)
[2016-11-27] MEDS: DOCUSATE SODIUM 100 MG CAP PO SCH ×2 (08:49→20:51)
[2016-11-27] MEDS: APIXABAN 2.5 MG TABLET PO SCH ×2 (08:49→20:51)
[2016-11-27] MEDS: FERROUS SULFATE 325 MG (65 MG ELEMENTAL IRON) TAB PO SCH ×2 (08:49→20:51)
[2016-11-27] MEDS: FLUCONAZOLE 200 MG TAB PO SCH (08:49)
[2016-11-27] MEDS: FUROSEMIDE 40 MG TAB PO SCH ×2 (08:50→18:00)
[2016-11-27] MEDS: LORazepam 0.5 MG TAB PO SCH ×2 (08:50→20:51)
[2016-11-27] MEDS: POLYETHYLENE GLYCOL 17 GM PKG PO SCH (08:50)
[2016-11-27] MEDS: SODIUM CHLORIDE 0.9% FLUSH 5 ML FLUSH IVF SCH ×2 (08:51→20:47)
[2016-11-27] MEDS: BUDESONIDE-FORMOTEROL 160/4.5 MCG INHALER INH SCH ×2 (08:53→20:53)
[2016-11-27] MEDS: RESP: ALBUTEROL 2.5 MG/IPRATROPIUM 0.5 MG NEB (PRN) NEB ×2 (11:32→19:57)
--- NOTE | 2016-11-27 11:32 | HHI.PR ---
Subjective History of Present Illness Patient have sever wheezing have difficulity walking because of SOB/ Wheezing. ..on Elaquis.. Review of Systems Constitutional Constitutional: Fatigue, Weakness Pulmonary Respiratory: Shortness of Breath, Wheezing GI/Abdomen GI/Abdomen Remarks rectal bleeding. Musculoskeletal MS Remarks Right Hip pain/ swelling. Integumentary Skin Remarks right hip bruise. Vitals/Results Intake & Output 11/26/16 11/26/16 11/27/16 15:00 23:00 07:00 Intake Total 720 ml 480 ml 480 ml Output Total 750 ml 700 ml Balance -30 ml 480 ml -220 ml Intake Oral 720 ml 480 ml 480 ml Output Urine Total 750 ml 700 ml # Voids 2 2 # Bowel Movements 0 0 Vital Signs Vital Signs Date Time Temp Pulse Resp B/P Pulse Ox O2 Delivery O2 Flow Rate FiO2 11/27/16 08:00 96.2 103 20 131/98 98 11/27/16 00:00 97.0 112 20 143/91 99 11/26/16 20:29 97 21 11/26/16 20:00 97.6 120 20 134/93 98 11/26/16 16:16 20 CBC/BMP: 11/27/16 0600 11/27/16 0600 Lab Results Laboratory Tests Test 11/27/16 06:00 White Blood Count 11.5 TH/MM3 Red Blood Count 3.37 MIL/MM3 Hemoglobin 8.2 GM/DL Hematocrit 26.1 % Mean Corpuscular Volume 77.5 FL Mean Corpuscular Hemoglobin 24.4 PG Mean Corpuscular Hemoglobin 31.5 % Concent Red Cell Distribution Width 23.3 % Platelet Count 431 TH/MM3 Mean Platelet Volume 6.0 FL Neutrophils (%) (Auto) 83.5 % Lymphocytes (%) (Auto) 9.9 % Monocytes (%) (Auto) 5.5 % Eosinophils (%) (Auto) 0.8 % Basophils (%) (Auto) 0.3 % Neutrophils # (Auto) 9.7 TH/MM3 Lymphocytes # (Auto) 1.1 TH/MM3 Monocytes # (Auto) 0.6 TH/MM3 Eosinophils # (Auto) 0.1 TH/MM3 Basophils # (Auto) 0.0 TH/MM3 CBC Comment AUTO DIFF Differential Comment AUTO DIFF CONFIRMED Ovalocytes 1+ Sodium Level 142 MEQ/L Potassium Level 3.7 MEQ/L Chloride Level 103 MEQ/L Carbon Dioxide Level 28.3 MEQ/L Anion Gap 11 MEQ/L Blood Urea Nitrogen 14 MG/DL Creatinine 0.67 MG/DL Estimat Glomerular Filtration 125 ML/MIN Rate Random Glucose 145 MG/DL Calcium Level 8.6 MG/DL Total Bilirubin 0.2 MG/DL Aspartate Amino Transf 24 U/L (AST/SGOT) Alanine Aminotransferase 97 U/L (ALT/SGPT) Alkaline Phosphatase 131 U/L Total Protein 5.6 GM/DL Albumin 2.8 GM/DL Physical Exam General General Appearance: Well Developed, Well Nourished, No Acute Distress, Obese Eyes Eye Exam: Pupils Equal, Sclera White, Extraocular Movement Intact Ears & Nose Ears & Nose Exam: Nasal Mucosa [place] Throat Throat Exam: Oral Mucosa [place] & Moist Neck Neck Exam: Neck Supple, Trachea Midline Pulmonary Resp Exam: Breath Sounds Equal, No Distress, Decreased Bases Resp Remarks Sever Bilateral Wheezing. Cardiology CV Exam: Regular, Normal Sinus Rhythm Gastrointestinal/Abdomen GI Exam: Non-Tender, Bowel Sounds Present, Positive Bowel Movement, Distended Musculoskeletal MS Exam: Joints Intact MS Remarks s/p right hip surgery. Integumentary Skin Exam: Warm, Dry Extremeties Extremities Exam: Pedal Pulses Palpable, Trace Edema Neurologic Neuro Exam: Alert, Awake, Oriented, Speech Clear, Moving All Extremities, No Focal Deficits Psychiatric Psych Exam: Appropriate Responses PUD Prophylasis PUD Prophylaxis: Protonix Assessment/Plan Assessment/Plan s/p COPD exacerbation severe advance stage asthma Right hip prosthetic joint /fungal infection Right hip seroma Status post right hip drainage Depression MELIZA/ severe Anxiety acute on chronic Right hip pain Status post upper endoscopy on 11/14/16 New diagnosis of distal esophagitis history for pulmonary embolism and right lower extremity DVT..on elaquis. s/p fall R periprosthetic comminuted Fx constipation Anemia Management S/P surgery rt. hip repair, 3-15, form spacer between legs while resting post op ortho care pain management PT eval and tx per ortho orders Continue oxygen Duonebs PO steroids Protonix, PUD prophylaxis Antibiotics per ID/ On micafungin & Diflucan follow cultures Bowel regimen having BMs Anemia, post PRBC transfusion follow HH Low iron stores, on PO supplement Constipated, had BM after mag citrate DC planning, now wants HHC will need ID recommendations still receiving duonebs q 4-6 hours Discussed Condition with: Patient Myron Woodward MD Nov 27, 2016 11:32
[2016-11-27 11:33] VITALS: O2SAT 97
[2016-11-27 12:00] VITALS: BP 123/92; PULSE 107; RESP 20; TEMP 96.1; O2SAT 98
[2016-11-27 16:00] VITALS: BP 136/95; PULSE 100; RESP 20; TEMP 96.1; O2SAT 98
[2016-11-27 20:00] VITALS: BP 136/96; PULSE 110; RESP 18; TEMP 96.6; O2SAT 97
[2016-11-27] MEDS: MICAFUNGIN INJ 150 MG in SODIUM CHLORIDE 0.9% INJ 100 ML IV SCH (20:47)
[2016-11-27] MEDS: INSULIN DETEMIR 100 UNITS/ML VIAL SQ SCH (20:51)
[2016-11-27] MEDS: MONTELUKAST SODIUM 10 MG TAB PO SCH (20:51)
[2016-11-27] MEDS: ATORVASTATIN 20 MG TAB PO SCH (20:51)
[2016-11-28] VITALS (7 sets, daily range): BP systolic 124–143; BP diastolic 79–112; PULSE 90–125; RESP 18–20; TEMP 96.7–97.3; O2SAT 96–99
[2016-11-28] MEDS: HYDROCORTISONE/PRAMOXINE RECTAL FOAM 10 GM CAN RECTAL SCH ×3 (00:11→15:25)
[2016-11-28] MEDS: HYDROmorphone HCL PF 1 MG/ML VIAL IV PUSH PRN ×5 (01:04→21:02)
[2016-11-28] MEDS: PCA - TOTAL MG DILAUDID DELIVERED PER SHIFT OTHER SCH ×3 (05:11→22:00)
[2016-11-28] MEDS: SUCRALFATE 1 GM TAB PO SCH ×3 (05:52→17:05)
[2016-11-28 06:02] LABS: AUTOMATED NEUTROPHIL # 8.4 TH/MM3 (1.8-7.7); BASOPHIL % 0.3 % (0.0-2.0); EOSINOPHIL # 0.1 TH/MM3 (0-0.4); EOSINOPHIL % 0.8 % (0.0-4.0); HEMATOCRIT 25.8 % (39.0-51.0); LYMPH % 11.5 % (9.0-44.0); LYMPHOCYTE # 1.2 TH/MM3 (1.0-4.8); MEAN CELL VOLUME 77.8 FL (80.0-100.0); MEAN CORPUSCULAR HEMOGLOBIN 24.8 PG (27.0-34.0); MEAN CORPUSCULAR HGB CONC 31.9 % (32.0-36.0); MONO % 5.8 % (0.0-8.0); NEUT % 81.6 % (16.0-70.0); PLATELET COUNT 432 TH/MM3 (150-450); RED BLOOD COUNT 3.32 MIL/MM3 (4.50-5.90); RED CELL DISTRIBUTION WIDTH 23.2 % (11.6-17.2); WHITE BLOOD COUNT 10.3 TH/MM3 (4.0-11.0)
[2016-11-28] MEDS: INSULIN ASPART SUPPLEMENTAL SCALE SQ SCH ×4 (06:02→21:01)
[2016-11-28 06:14] LABS: HEMO FLAGS AUTO DIFF
[2016-11-28 06:17] LABS: CHLORIDE 101 MEQ/L (98-107); POTASSIUM 3.5 MEQ/L (3.5-5.1); SODIUM (NA) 141 MEQ/L (136-145)
[2016-11-28 06:21] LABS: ANION GAP 10 MEQ/L (5-15); BICARBONATE 30.3 MEQ/L (21.0-32.0); BLOOD UREA NITROGEN 10 MG/DL (7-18)
[2016-11-28 06:24] LABS: ALT (GPT) 86 U/L (12-78); AST (GOT) 26 U/L (15-37); GLOMERULAR FILTRATION RATE 122 ML/MIN (>89)
[2016-11-28 06:25] LABS: TOTAL BILIRUBIN ADULT 0.3 MG/DL (0.2-1.0)
[2016-11-28 06:27] LABS: ALKALINE PHOSPHATASE 132 U/L (45-117)
[2016-11-28 06:31] LABS: OVALOCYTES 1+ (NORMAL); PLATELET ESTIMATE SMEAR NORMAL (NORMAL); PLATELET MORPHOLOGY NORMAL (NORMAL); SCAN/DIFF AUTO DIFF CONFIRMED
--- NOTE | 2016-11-28 07:32 | PD.ORT.PN ---
Subjective Post Op Day #: 6 Pain Scale: ok Subjective Remarks knee better, but still hurts, Hip draining PT bid. Breathing better, hopes to be dc ed 2 days Objective Vitals Vital Signs Date Time Temp Pulse Resp B/P Pulse Ox O2 Delivery O2 Flow Rate FiO2 11/28/16 06:24 18 11/28/16 00:00 97.0 90 18 134/93 98 11/27/16 20:00 96.6 110 18 136/96 97 11/27/16 16:00 96.1 100 20 136/95 98 11/27/16 12:00 96.1 107 20 123/92 98 11/27/16 11:33 97 21 11/27/16 08:00 96.2 103 20 131/98 98 I/O 11/27/16 11/27/16 11/27/16 11/28/16 11/28/16 11/28/16 07:00 15:00 23:00 07:00 15:00 23:00 Intake Total 480 ml 1000 ml 480 ml Output Total 700 ml 600 ml 175 ml 1300 ml Balance -220 ml 400 ml -175 ml -820 ml Intake Oral 480 ml 1000 ml 480 ml Output Urine Total 700 ml 600 ml 175 ml 1300 ml # Voids 2 # Bowel Movements 0 1 0 Result Diagram: 11/28/16 0550 11/28/16 0550 Imaging Microbiology Date/Time Procedure Status Source Growth 11/20/16 17:28 Gram Stain - Final Resulted Wound Hip 11/20/16 17:28 Wound Culture - Preliminary Resulted Wound Hip NO GROWTH IN 24 HOURS. 11/20/16 17:28 Fungal Smear - Final Resulted Wound Hip NO FUNGAL ELEMENTS SEEN. 11/20/16 17:28 Fungal Culture Resulted Wound Hip Pending 11/20/16 17:28 Acid Fast Stain Received Wound Hip Pending 11/20/16 17:28 Mycobacterial Culture Received Wound Hip Pending Microbiology Date/Time Procedure Status Source Growth 11/20/16 17:28 Gram Stain - Final Resulted Wound Hip 11/20/16 17:28 Wound Culture Resulted Wound Hip Pending 11/20/16 17:28 Fungal Smear - Final Resulted Wound Hip NO FUNGAL ELEMENTS SEEN. 11/20/16 17:28 Fungal Culture Resulted Wound Hip Pending 11/20/16 17:28 Acid Fast Stain Received Wound Hip Pending 11/20/16 17:28 Mycobacterial Culture Received Wound Hip Pending Last 72 hours Impressions Hip X-Ray 11/20/16 0000 Signed Impressions: Service Date/Time: Sunday, November 20, 2016 22:03 - CONCLUSION: Postsurgical changes are noted. Trae Cano MD Last 72 hours Impressions Chest X-Ray 11/12/16 0000 Signed Impressions: Service Date/Time: Saturday, November 12, 2016 12:56 - CONCLUSION: No acute disease. Davion Carranza MD Abdomen/Pelvis CT 11/12/16 0000 Signed Impressions: Service Date/Time: Saturday, November 12, 2016 08:59 - CONCLUSION: 1. Wall thickening along the lateral cecum. Colonoscopy may be warranted. No acute inflammatory process. 2. No renal calculi or hydronephrosis. 3. Copious amount of stool throughout the large bowel. Davion Carranza MD Hip and Pelvis X-Ray 11/11/16 0000 Signed Impressions: Service Date/Time: Friday, November 11, 2016 19:32 - CONCLUSION: No acute radiographic abnormality right bipolar hip arthroplasty. Adin Kendall MD Last 24 hours Impressions Hip MRI 10/02/16 0000 Signed Impressions: Service Date/Time: Sunday, October 02, 2016 09:13 - CONCLUSION: 12 cm collection in the right hip and buttock region, likely hematoma/seroma. The lesion could certainly be drained or sampled without difficulty under CT guidance. Adin Guillermo MD Objective Remarks In PO facility now. In bed. Comfortable. Moves around without pain. Drainaqge moderate upper end incision. No redness Assessment & Plan Assessment and Plan 8 days post revision MARLENY and ORIF. Needs Iv antifungals 5 more weks. To have bulky dressings. To look into putting wound vac for one week Shaan Lindo MD Nov 28, 2016 07:32
--- NOTE | 2016-11-28 08:14 | HHI.PR ---
Subjective History of Present Illness Patient have sever wheezing have difficulity walking because of SOB/ Wheezing. ..on Elaquis. 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 Review of Systems Constitutional Constitutional: Fatigue, Weakness Pulmonary Respiratory: Shortness of Breath, Wheezing GI/Abdomen GI/Abdomen Remarks rectal bleeding. Musculoskeletal MS Remarks Right Hip pain/ swelling. Integumentary Skin Remarks right hip bruise. Vitals/Results Intake & Output 11/27/16 11/27/16 11/28/16 15:00 23:00 07:00 Intake Total 1000 ml 480 ml Output Total 600 ml 175 ml 1300 ml Balance 400 ml -175 ml -820 ml Intake Oral 1000 ml 480 ml Output Urine Total 600 ml 175 ml 1300 ml # Bowel Movements 1 0 Vital Signs Vital Signs Date Time Temp Pulse Resp B/P Pulse Ox O2 Delivery O2 Flow Rate FiO2 11/28/16 06:24 18 11/28/16 00:00 97.0 90 18 134/93 98 11/27/16 20:00 96.6 110 18 136/96 97 11/27/16 16:00 96.1 100 20 136/95 98 11/27/16 12:00 96.1 107 20 123/92 98 11/27/16 11:33 97 21 CBC/BMP: 11/28/16 0550 11/28/16 0550 Lab Results Laboratory Tests Test 11/28/16 05:50 White Blood Count 10.3 TH/MM3 Red Blood Count 3.32 MIL/MM3 Hemoglobin 8.2 GM/DL Hematocrit 25.8 % Mean Corpuscular Volume 77.8 FL Mean Corpuscular Hemoglobin 24.8 PG Mean Corpuscular Hemoglobin 31.9 % Concent Red Cell Distribution Width 23.2 % Platelet Count 432 TH/MM3 Mean Platelet Volume 6.3 FL Neutrophils (%) (Auto) 81.6 % Lymphocytes (%) (Auto) 11.5 % Monocytes (%) (Auto) 5.8 % Eosinophils (%) (Auto) 0.8 % Basophils (%) (Auto) 0.3 % Neutrophils # (Auto) 8.4 TH/MM3 Lymphocytes # (Auto) 1.2 TH/MM3 Monocytes # (Auto) 0.6 TH/MM3 Eosinophils # (Auto) 0.1 TH/MM3 Basophils # (Auto) 0.0 TH/MM3 CBC Comment AUTO DIFF Differential Comment AUTO DIFF CONFIRMED Platelet Estimate NORMAL Platelet Morphology Comment NORMAL Ovalocytes 1+ Sodium Level 141 MEQ/L Potassium Level 3.5 MEQ/L Chloride Level 101 MEQ/L Carbon Dioxide Level 30.3 MEQ/L Anion Gap 10 MEQ/L Blood Urea Nitrogen 10 MG/DL Creatinine 0.68 MG/DL Estimat Glomerular Filtration 122 ML/MIN Rate Random Glucose 137 MG/DL Calcium Level 8.6 MG/DL Total Bilirubin 0.3 MG/DL Aspartate Amino Transf 26 U/L (AST/SGOT) Alanine Aminotransferase 86 U/L (ALT/SGPT) Alkaline Phosphatase 132 U/L Total Protein 5.7 GM/DL Albumin 2.7 GM/DL Physical Exam General General Appearance: Well Developed, Well Nourished, No Acute Distress, Obese Eyes Eye Exam: Pupils Equal, Sclera White, Extraocular Movement Intact Ears & Nose Ears & Nose Exam: Nasal Mucosa [place] Throat Throat Exam: Oral Mucosa [place] & Moist Neck Neck Exam: Neck Supple, Trachea Midline Pulmonary Resp Exam: Breath Sounds Equal, No Distress, Decreased Bases Resp Remarks Sever Bilateral Wheezing. Cardiology CV Exam: Regular, Normal Sinus Rhythm Gastrointestinal/Abdomen GI Exam: Non-Tender, Bowel Sounds Present, Positive Bowel Movement, Distended Musculoskeletal MS Exam: Joints Intact MS Remarks s/p right hip surgery. Integumentary Skin Exam: Warm, Dry Extremeties Extremities Exam: Pedal Pulses Palpable, Trace Edema Neurologic Neuro Exam: Alert, Awake, Oriented, Speech Clear, Moving All Extremities, No Focal Deficits Psychiatric Psych Exam: Appropriate Responses PUD Prophylasis PUD Prophylaxis: Protonix Assessment/Plan Assessment/Plan s/p COPD exacerbation severe advance stage asthma Right hip prosthetic joint /fungal infection Right hip seroma Status post right hip drainage Depression MELIZA/ severe Anxiety acute on chronic Right hip pain Status post upper endoscopy on 11/14/16 New diagnosis of distal esophagitis history for pulmonary embolism and right lower extremity DVT..on elaquis. s/p fall R periprosthetic comminuted Fx..s/p surgery. constipation Anemia Management S/P surgery rt. hip repair, 3-15, form spacer between legs while resting post op ortho care pain management PT eval and tx per ortho orders Continue oxygen Duonebs PO steroids Protonix, PUD prophylaxis Antibiotics per ID/ On micafungin & Diflucan follow cultures Bowel regimen having BMs Anemia, post PRBC transfusion follow HH Low iron stores, on PO supplement Constipated, had BM after mag citrate DC planning, now wants HHC will need ID recommendations still receiving duonebs q 4-6 hours Discussed Condition with: Patient Myron Woodward MD Nov 28, 2016 08:14
[2016-11-28] MEDS: SODIUM CHLORIDE 0.9% FLUSH 5 ML FLUSH IVF SCH ×2 (09:00→21:01)
[2016-11-28] MEDS: RESP: ALBUTEROL 2.5 MG/IPRATROPIUM 0.5 MG NEB (PRN) NEB ×2 (10:04→19:18)
[2016-11-28] MEDS: POLYETHYLENE GLYCOL 17 GM PKG PO SCH (10:21)
[2016-11-28] MEDS: BUDESONIDE-FORMOTEROL 160/4.5 MCG INHALER INH SCH ×2 (10:21→21:00)
[2016-11-28] MEDS: predniSONE 10 MG TAB PO SCH ×2 (10:23→21:00)
[2016-11-28] MEDS: FLUCONAZOLE 200 MG TAB PO SCH (10:23)
[2016-11-28] MEDS: PANTOPRAZOLE SOD 40 MG DELAYED RELEASE TAB PO SCH (10:23)
[2016-11-28] MEDS: LORazepam 0.5 MG TAB PO SCH ×2 (10:23→21:00)
[2016-11-28] MEDS: FERROUS SULFATE 325 MG (65 MG ELEMENTAL IRON) TAB PO SCH ×2 (10:23→21:00)
[2016-11-28] MEDS: DOCUSATE SODIUM 100 MG CAP PO SCH ×2 (10:23→21:00)
[2016-11-28] MEDS: FUROSEMIDE 40 MG TAB PO SCH ×2 (10:23→17:03)
[2016-11-28] MEDS: APIXABAN 2.5 MG TABLET PO SCH ×2 (10:23→21:00)
[2016-11-28] MEDS: POTASSIUM CHLORIDE 10 MEQ CONTROLLED RELEASE TAB PO SCH ×2 (10:24→21:00)
[2016-11-28] MEDS: DILTIAZEM-CD 180 MG CAP ER PO SCH (10:24)
--- NOTE | 2016-11-28 14:10 | PD.ORT.PN ---
Subjective Post Op Day #: 7 Objective Vitals Vital Signs Date Time Temp Pulse Resp B/P Pulse Ox O2 Delivery O2 Flow Rate FiO2 11/28/16 10:07 98 21 11/28/16 08:00 96.8 102 20 139/93 98 11/28/16 06:24 18 11/28/16 00:00 97.0 90 18 134/93 98 11/27/16 20:00 96.6 110 18 136/96 97 11/27/16 16:00 96.1 100 20 136/95 98 I/O 11/27/16 11/27/16 11/27/16 11/28/16 11/28/16 11/28/16 07:00 15:00 23:00 07:00 15:00 23:00 Intake Total 480 ml 1000 ml 480 ml Output Total 700 ml 600 ml 175 ml 1300 ml Balance -220 ml 400 ml -175 ml -820 ml Intake Oral 480 ml 1000 ml 480 ml Output Urine Total 700 ml 600 ml 175 ml 1300 ml # Voids 2 # Bowel Movements 0 1 0 Result Diagram: 11/28/16 0550 11/28/16 0550 Imaging Microbiology Date/Time Procedure Status Source Growth 11/20/16 17:28 Gram Stain - Final Resulted Wound Hip 11/20/16 17:28 Wound Culture - Preliminary Resulted Wound Hip NO GROWTH IN 24 HOURS. 11/20/16 17:28 Fungal Smear - Final Resulted Wound Hip NO FUNGAL ELEMENTS SEEN. 11/20/16 17:28 Fungal Culture Resulted Wound Hip Pending 11/20/16 17:28 Acid Fast Stain Received Wound Hip Pending 11/20/16 17:28 Mycobacterial Culture Received Wound Hip Pending Microbiology Date/Time Procedure Status Source Growth 11/20/16 17:28 Gram Stain - Final Resulted Wound Hip 11/20/16 17:28 Wound Culture Resulted Wound Hip Pending 11/20/16 17:28 Fungal Smear - Final Resulted Wound Hip NO FUNGAL ELEMENTS SEEN. 11/20/16 17:28 Fungal Culture Resulted Wound Hip Pending 11/20/16 17:28 Acid Fast Stain Received Wound Hip Pending 11/20/16 17:28 Mycobacterial Culture Received Wound Hip Pending Last 72 hours Impressions Hip X-Ray 11/20/16 0000 Signed Impressions: Service Date/Time: Sunday, November 20, 2016 22:03 - CONCLUSION: Postsurgical changes are noted. Trae Cano MD Last 72 hours Impressions Chest X-Ray 11/12/16 0000 Signed Impressions: Service Date/Time: Saturday, November 12, 2016 12:56 - CONCLUSION: No acute disease. Davion Carranza MD Abdomen/Pelvis CT 11/12/16 0000 Signed Impressions: Service Date/Time: Saturday, November 12, 2016 08:59 - CONCLUSION: 1. Wall thickening along the lateral cecum. Colonoscopy may be warranted. No acute inflammatory process. 2. No renal calculi or hydronephrosis. 3. Copious amount of stool throughout the large bowel. Davion Carranza MD Hip and Pelvis X-Ray 11/11/16 0000 Signed Impressions: Service Date/Time: Friday, November 11, 2016 19:32 - CONCLUSION: No acute radiographic abnormality right bipolar hip arthroplasty. Adin Kendall MD Last 24 hours Impressions Hip MRI 10/02/16 0000 Signed Impressions: Service Date/Time: Sunday, October 02, 2016 09:13 - CONCLUSION: 12 cm collection in the right hip and buttock region, likely hematoma/seroma. The lesion could certainly be drained or sampled without difficulty under CT guidance. Adin Guillermo MD Procedures WOUND VAC DRESSING APPLIED Objective Remarks active SS drainage. Assessment & Plan Assessment and Plan reassess wound Reappl;y new VAC dressing as needed Shaan Lindo MD Nov 28, 2016 14:10
[2016-11-28] MEDS: METHYLNALTREXONE BROMIDE 12 MG/0.6 ML VIAL SQ SCH (15:22)
[2016-11-28] MEDS: MICAFUNGIN INJ 150 MG in SODIUM CHLORIDE 0.9% INJ 100 ML IV SCH (20:59)
[2016-11-28] MEDS: INSULIN DETEMIR 100 UNITS/ML VIAL SQ SCH (20:59)
[2016-11-28] MEDS: MONTELUKAST SODIUM 10 MG TAB PO SCH (21:00)
[2016-11-28] MEDS: ATORVASTATIN 20 MG TAB PO SCH (21:00)
[2016-11-29] VITALS: BP 143/95; PULSE 109; RESP 18; TEMP 97.4; O2SAT 98
[2016-11-29] MEDS: HYDROCORTISONE/PRAMOXINE RECTAL FOAM 10 GM CAN RECTAL SCH ×4 (00:22→23:15)
[2016-11-29] MEDS: HYDROmorphone HCL PF 1 MG/ML VIAL IV PUSH PRN ×4 (01:00→23:20)
[2016-11-29] MEDS: PCA - TOTAL MG DILAUDID DELIVERED PER SHIFT OTHER SCH ×3 (05:07→22:00)
[2016-11-29] MEDS: SUCRALFATE 1 GM TAB PO SCH ×3 (06:12→12:45)
[2016-11-29] MEDS: INSULIN ASPART SUPPLEMENTAL SCALE SQ SCH ×4 (06:20→21:20)
[2016-11-29 06:25] LABS: AUTOMATED NEUTROPHIL # 7.7 TH/MM3 (1.8-7.7); BASOPHIL % 0.5 % (0.0-2.0); EOSINOPHIL # 0.1 TH/MM3 (0-0.4); LYMPHOCYTE # 1.1 TH/MM3 (1.0-4.8); MEAN CELL VOLUME 76.8 FL (80.0-100.0); MEAN CORPUSCULAR HEMOGLOBIN 24.2 PG (27.0-34.0); MEAN CORPUSCULAR HGB CONC 31.5 % (32.0-36.0); NEUT % 80.5 % (16.0-70.0); PLATELET COUNT 449 TH/MM3 (150-450); RED BLOOD COUNT 3.52 MIL/MM3 (4.50-5.90); RED CELL DISTRIBUTION WIDTH 23.1 % (11.6-17.2); WHITE BLOOD COUNT 9.6 TH/MM3 (4.0-11.0)
[2016-11-29 06:26] LABS: HEMO FLAGS AUTO DIFF
[2016-11-29 06:32] LABS: BANDS 1 % (0-6); CORRECTED NUCLEATED RBC 4 /100 WBC (0-0); EOSINOPHILS 1 % (0-4); METAMYELOCYTES 1 % (0-1); NEUTROPHIL # MANUAL DIFF 7.8 TH/MM3 (1.8-7.7); POLYS (SEG NEUTROPHILS) 79 % (16-70); WBC DIFF SAMPLE 100
[2016-11-29 06:33] LABS: OVALOCYTES 1+ (NORMAL); PLATELET ESTIMATE SMEAR NORMAL (NORMAL); PLATELET MORPHOLOGY NORMAL (NORMAL); SCAN/DIFF FINAL DIFF MANUAL; TEARDROP RBCS 1+ (NORMAL)
[2016-11-29 06:34] LABS: CHLORIDE 101 MEQ/L (98-107); POTASSIUM 3.5 MEQ/L (3.5-5.1); SODIUM (NA) 140 MEQ/L (136-145)
[2016-11-29 06:39] LABS: ANION GAP 9 MEQ/L (5-15)
[2016-11-29 06:40] LABS: BLOOD UREA NITROGEN 10 MG/DL (7-18)
[2016-11-29 06:42] LABS: ALT (GPT) 95 U/L (12-78)
[2016-11-29 06:43] LABS: AST (GOT) 33 U/L (15-37); GLOMERULAR FILTRATION RATE 95 ML/MIN (>89)
[2016-11-29 06:44] LABS: TOTAL BILIRUBIN ADULT 0.3 MG/DL (0.2-1.0)
[2016-11-29 06:45] LABS: ALKALINE PHOSPHATASE 145 U/L (45-117)
[2016-11-29] MEDS: RESP: ALBUTEROL 2.5 MG/IPRATROPIUM 0.5 MG NEB (PRN) NEB ×3 (07:58→21:38)
[2016-11-29 07:59] VITALS: O2SAT 98
[2016-11-29 08:00] VITALS: BP 138/94; PULSE 109; RESP 20; TEMP 97; O2SAT 98
--- NOTE | 2016-11-29 08:22 | HHI.PR ---
Subjective History of Present Illness Patient have sever wheezing have difficulity walking because of SOB/ Wheezing. ..on Elaquis. d/w SHAZIA Velez. Possible DC tomorrow with [facility]. Review of Systems Constitutional Constitutional: Fatigue, Weakness Pulmonary Respiratory: Shortness of Breath, Wheezing GI/Abdomen GI/Abdomen Remarks rectal bleeding. Musculoskeletal MS Remarks Right Hip pain/ swelling. Integumentary Skin Remarks right hip bruise. Vitals/Results Intake & Output 11/28/16 11/28/16 11/29/16 14:59 22:59 06:59 Intake Total 1000 ml 870 ml Output Total 750 ml 3100 ml Balance 250 ml -2230 ml Intake Oral 1000 ml 870 ml Output Urine Total 750 ml 3100 ml # Bowel Movements 1 0 Vital Signs Vital Signs Date Time Temp Pulse Resp B/P Pulse Ox O2 Delivery O2 Flow Rate FiO2 11/29/16 07:59 98 21 11/29/16 06:43 18 11/29/16 00:00 97.4 109 18 143/95 98 11/28/16 20:00 97.3 107 18 124/91 98 11/28/16 19:18 98 21 11/28/16 16:00 97.2 125 20 125/79 96 11/28/16 12:00 96.7 122 20 143/112 99 11/28/16 10:07 98 21 CBC/BMP: 11/29/16 0610 11/29/16 0610 Lab Results Laboratory Tests Test 11/29/16 06:10 White Blood Count 9.6 TH/MM3 Red Blood Count 3.52 MIL/MM3 Hemoglobin 8.5 GM/DL Hematocrit 27.0 % Mean Corpuscular Volume 76.8 FL Mean Corpuscular Hemoglobin 24.2 PG Mean Corpuscular Hemoglobin 31.5 % Concent Red Cell Distribution Width 23.1 % Platelet Count 449 TH/MM3 Mean Platelet Volume 6.2 FL Neutrophils (%) (Auto) 80.5 % Lymphocytes (%) (Auto) 11.0 % Monocytes (%) (Auto) 7.0 % Eosinophils (%) (Auto) 1.0 % Basophils (%) (Auto) 0.5 % Neutrophils # (Auto) 7.7 TH/MM3 Lymphocytes # (Auto) 1.1 TH/MM3 Monocytes # (Auto) 0.7 TH/MM3 Eosinophils # (Auto) 0.1 TH/MM3 Basophils # (Auto) 0.0 TH/MM3 CBC Comment AUTO DIFF Differential Total Cells 100 Counted Neutrophils % (Manual) 79 % Band Neutrophils % 1 % Lymphocytes % 11 % Monocytes % 7 % Eosinophils % 1 % Neutrophils # (Manual) 7.8 TH/MM3 Metamyelocytes 1 % Nucleated Red Blood Cells 4 /100 WBC Differential Comment FINAL DIFF MANUAL Platelet Estimate NORMAL Platelet Morphology Comment NORMAL Tear Drop Cells 1+ Ovalocytes 1+ Sodium Level 140 MEQ/L Potassium Level 3.5 MEQ/L Chloride Level 101 MEQ/L Carbon Dioxide Level 30.0 MEQ/L Anion Gap 9 MEQ/L Blood Urea Nitrogen 10 MG/DL Creatinine 0.85 MG/DL Estimat Glomerular Filtration 95 ML/MIN Rate Random Glucose 138 MG/DL Calcium Level 8.9 MG/DL Total Bilirubin 0.3 MG/DL Aspartate Amino Transf 33 U/L (AST/SGOT) Alanine Aminotransferase 95 U/L (ALT/SGPT) Alkaline Phosphatase 145 U/L Total Protein 5.9 GM/DL Albumin 2.8 GM/DL Physical Exam General General Appearance: Well Developed, Well Nourished, No Acute Distress, Obese Eyes Eye Exam: Pupils Equal, Sclera White, Extraocular Movement Intact Ears & Nose Ears & Nose Exam: Nasal Mucosa [place] Throat Throat Exam: Oral Mucosa [place] & Moist Neck Neck Exam: Neck Supple, Trachea Midline Pulmonary Resp Exam: Breath Sounds Equal, No Distress, Decreased Bases Resp Remarks Sever Bilateral Wheezing. Cardiology CV Exam: Regular, Normal Sinus Rhythm Gastrointestinal/Abdomen GI Exam: Non-Tender, Bowel Sounds Present, Positive Bowel Movement, Distended Musculoskeletal MS Exam: Joints Intact MS Remarks s/p right hip surgery. Integumentary Skin Exam: Warm, Dry Extremeties Extremities Exam: Pedal Pulses Palpable, Trace Edema Neurologic Neuro Exam: Alert, Awake, Oriented, Speech Clear, Moving All Extremities, No Focal Deficits Psychiatric Psych Exam: Appropriate Responses PUD Prophylasis PUD Prophylaxis: Protonix Assessment/Plan Assessment/Plan s/p COPD exacerbation severe advance stage asthma Right hip prosthetic joint /fungal infection Right hip seroma Status post right hip drainage Depression MELIZA/ severe Anxiety acute on chronic Right hip pain Status post upper endoscopy on 11/14/16 New diagnosis of distal esophagitis history for pulmonary embolism and right lower extremity DVT..on elaquis. s/p fall R periprosthetic comminuted Fx..s/p surgery. constipation Anemia Management S/P surgery rt. hip repair, 3-15, form spacer between legs while resting post op ortho care pain management PT eval and tx per ortho orders Continue oxygen Duonebs PO steroids Protonix, PUD prophylaxis Antibiotics per ID/ On micafungin & Diflucan follow cultures Bowel regimen having BMs Anemia, post PRBC transfusion follow HH Low iron stores, on PO supplement Constipated, had BM after mag citrate Possible DC tomorrow with HHC. ID recommendations still receiving duonebs q 4-6 hours. CBC with diff CMP in AM. Discussed Condition with: Patient Myron Woodward MD Nov 29, 2016 08:22
--- NOTE | 2016-11-29 08:35 | HHI.FF ---
Face to Face Verification Diagnosis: (1) Leukocytosis (2) Warfarin-induced coagulopathy (3) Acute hypercapnic respiratory failure (4) Septic arthritis (5) Respiratory failure, acute (6) CAP (community acquired pneumonia) (7) Acute right hip pain (8) hematoma vs PE (9) Abscess of hip, right (10) Chronic obstructive pulmonary disease (11) Pulmonary embolism Physical Therapy Order: Evaluate and Treat, Improve ambulation, Strength and gait training Occupational Therapy Order: Evaluate and Treat, Gross motor coordination Home Health Nursing Order: Medical education Medication education-adverse effect Wound care and dressing changes Home Health Aide Order: To Assist In: Bathing and personal care I have seen patient Philip [facility] Fariba, on 11/29/16. My clinical findings support the need for the requested home health care services because: Ltd mobility - disease progression Deconditioned w/ increased weakness Limited ability to care for self Infection w/ risk of complications I certify that my clinical findings support that this patient is homebound because: Post-op weakness Unsteady gait/balance Unsafe to leave home unassisted Unable to use public transportation Myron Woodward MD Nov 29, 2016 08:35
[2016-11-29] MEDS: POLYETHYLENE GLYCOL 17 GM PKG PO SCH (09:00)
[2016-11-29] MEDS: SODIUM CHLORIDE 0.9% FLUSH 5 ML FLUSH IVF SCH ×2 (09:00→21:16)
[2016-11-29] MEDS: FERROUS SULFATE 325 MG (65 MG ELEMENTAL IRON) TAB PO SCH ×2 (10:11→21:12)
[2016-11-29] MEDS: PANTOPRAZOLE SOD 40 MG DELAYED RELEASE TAB PO SCH (10:11)
[2016-11-29] MEDS: FUROSEMIDE 40 MG TAB PO SCH ×2 (10:11→17:18)
[2016-11-29] MEDS: FLUCONAZOLE 200 MG TAB PO SCH (10:11)
[2016-11-29] MEDS: APIXABAN 2.5 MG TABLET PO SCH ×2 (10:11→21:13)
[2016-11-29] MEDS: POTASSIUM CHLORIDE 10 MEQ CONTROLLED RELEASE TAB PO SCH ×2 (10:11→21:13)
[2016-11-29] MEDS: LORazepam 0.5 MG TAB PO SCH ×2 (10:11→21:16)
[2016-11-29] MEDS: DOCUSATE SODIUM 100 MG CAP PO SCH ×2 (10:11→21:12)
[2016-11-29] MEDS: DILTIAZEM-CD 180 MG CAP ER PO SCH (10:11)
[2016-11-29] MEDS: predniSONE 10 MG TAB PO SCH ×2 (10:12→21:13)
[2016-11-29] MEDS: BUDESONIDE-FORMOTEROL 160/4.5 MCG INHALER INH SCH ×2 (10:12→22:03)
[2016-11-29 12:00] VITALS: BP 140/94; PULSE 133; RESP 20; TEMP 96.4; O2SAT 98
--- NOTE | 2016-11-29 13:00 | PD.ORT.PN ---
Subjective Post Op Day #: 8 Pain Scale: ok Subjective Remarks no complaints Objective Vitals Vital Signs Date Time Temp Pulse Resp B/P Pulse Ox O2 Delivery O2 Flow Rate FiO2 11/29/16 12:00 96.4 133 20 140/94 98 11/29/16 08:00 97.0 109 20 138/94 98 11/29/16 07:59 98 21 11/29/16 06:43 18 11/29/16 00:00 97.4 109 18 143/95 98 11/28/16 20:00 97.3 107 18 124/91 98 11/28/16 19:18 98 21 11/28/16 16:00 97.2 125 20 125/79 96 I/O 11/28/16 11/28/16 11/28/16 11/29/16 11/29/16 11/29/16 07:00 15:00 23:00 07:00 15:00 23:00 Intake Total 480 ml 1000 ml 870 ml Output Total 1300 ml 750 ml 3100 ml Balance -820 ml 250 ml -2230 ml Intake Oral 480 ml 1000 ml 870 ml Output Urine Total 1300 ml 750 ml 3100 ml # Bowel Movements 0 1 0 Result Diagram: 11/29/16 0610 11/29/16 0610 Imaging Microbiology Date/Time Procedure Status Source Growth 11/20/16 17:28 Gram Stain - Final Resulted Wound Hip 11/20/16 17:28 Wound Culture - Preliminary Resulted Wound Hip NO GROWTH IN 24 HOURS. 11/20/16 17:28 Fungal Smear - Final Resulted Wound Hip NO FUNGAL ELEMENTS SEEN. 11/20/16 17:28 Fungal Culture Resulted Wound Hip Pending 11/20/16 17:28 Acid Fast Stain Received Wound Hip Pending 11/20/16 17:28 Mycobacterial Culture Received Wound Hip Pending Microbiology Date/Time Procedure Status Source Growth 11/20/16 17:28 Gram Stain - Final Resulted Wound Hip 11/20/16 17:28 Wound Culture Resulted Wound Hip Pending 11/20/16 17:28 Fungal Smear - Final Resulted Wound Hip NO FUNGAL ELEMENTS SEEN. 11/20/16 17:28 Fungal Culture Resulted Wound Hip Pending 11/20/16 17:28 Acid Fast Stain Received Wound Hip Pending 11/20/16 17:28 Mycobacterial Culture Received Wound Hip Pending Last 72 hours Impressions Hip X-Ray 11/20/16 0000 Signed Impressions: Service Date/Time: Sunday, November 20, 2016 22:03 - CONCLUSION: Postsurgical changes are noted. Trae Cano MD Last 72 hours Impressions Chest X-Ray 11/12/16 0000 Signed Impressions: Service Date/Time: Saturday, November 12, 2016 12:56 - CONCLUSION: No acute disease. Davion Carranza MD Abdomen/Pelvis CT 11/12/16 0000 Signed Impressions: Service Date/Time: Saturday, November 12, 2016 08:59 - CONCLUSION: 1. Wall thickening along the lateral cecum. Colonoscopy may be warranted. No acute inflammatory process. 2. No renal calculi or hydronephrosis. 3. Copious amount of stool throughout the large bowel. Davion Carranza MD Hip and Pelvis X-Ray 11/11/16 0000 Signed Impressions: Service Date/Time: Friday, November 11, 2016 19:32 - CONCLUSION: No acute radiographic abnormality right bipolar hip arthroplasty. Adin Kendall MD Last 24 hours Impressions Hip MRI 10/02/16 0000 Signed Impressions: Service Date/Time: Sunday, October 02, 2016 09:13 - CONCLUSION: 12 cm collection in the right hip and buttock region, likely hematoma/seroma. The lesion could certainly be drained or sampled without difficulty under CT guidance. Adin Guillermo MD Objective Remarks vac dressing working as planned No need to change as yet Sitting up with no discomfort Assessment & Plan Assessment and Plan reassess wound Reappl;y new VAC dressing as needed Shaan Lindo MD Nov 29, 2016 13:00
[2016-11-29] MEDS: ACETAMINOPHEN/HYDROcodone 325 MG/5 MG TAB PO PRN ×2 (15:20→21:12)
[2016-11-29 16:00] VITALS: BP 130/91; PULSE 116; RESP 20; TEMP 96.5; O2SAT 99
[2016-11-29 20:00] VITALS: BP 117/77; PULSE 121; RESP 20; TEMP 97.5; O2SAT 97
[2016-11-29] MEDS: ATORVASTATIN 20 MG TAB PO SCH (21:14)
[2016-11-29] MEDS: MONTELUKAST SODIUM 10 MG TAB PO SCH (21:14)
[2016-11-29] MEDS: CYCLOBENZAPRINE HCL 10 MG TAB PO PRN (21:14)
[2016-11-29] MEDS: TEMAZEPAM 15 MG CAP PO PRN (21:15)
[2016-11-29] MEDS: INSULIN DETEMIR 100 UNITS/ML VIAL SQ SCH (21:17)
[2016-11-29] MEDS: MICAFUNGIN INJ 150 MG in SODIUM CHLORIDE 0.9% INJ 100 ML IV SCH (21:21)
[2016-11-30] VITALS (7 sets, daily range): BP systolic 117–141; BP diastolic 95–98; PULSE 99–119; RESP 18–20; TEMP 96.3–98.1; O2SAT 95–99
[2016-11-30] MEDS: ACETAMINOPHEN/HYDROcodone 325 MG/5 MG TAB PO PRN ×4 (01:14→22:44)
[2016-11-30] MEDS: PCA - TOTAL MG DILAUDID DELIVERED PER SHIFT OTHER SCH ×3 (05:21→21:16)
[2016-11-30] MEDS: SUCRALFATE 1 GM TAB PO SCH ×3 (05:45→15:35)
[2016-11-30] MEDS: INSULIN ASPART SUPPLEMENTAL SCALE SQ SCH ×4 (05:47→21:14)
[2016-11-30] MEDS: HYDROmorphone HCL PF 1 MG/ML VIAL IV PUSH PRN ×2 (06:09→15:24)
[2016-11-30] MEDS: RESP: ALBUTEROL 2.5 MG/IPRATROPIUM 0.5 MG NEB (PRN) NEB ×3 (07:34→20:27)
[2016-11-30 07:38] LABS: BASOPHIL % 0.4 % (0.0-2.0); EOSINOPHIL # 0.1 TH/MM3 (0-0.4); HEMATOCRIT 25.5 % (39.0-51.0); LYMPH % 10.1 % (9.0-44.0); LYMPHOCYTE # 0.9 TH/MM3 (1.0-4.8); MEAN CELL VOLUME 78.2 FL (80.0-100.0); MEAN CORPUSCULAR HEMOGLOBIN 24.1 PG (27.0-34.0); MEAN CORPUSCULAR HGB CONC 30.9 % (32.0-36.0); MONO % 5.8 % (0.0-8.0); NEUT % 82.7 % (16.0-70.0); PLATELET COUNT 425 TH/MM3 (150-450); RED BLOOD COUNT 3.27 MIL/MM3 (4.50-5.90); RED CELL DISTRIBUTION WIDTH 23.5 % (11.6-17.2); WHITE BLOOD COUNT 8.5 TH/MM3 (4.0-11.0)
[2016-11-30 07:46] LABS: CHLORIDE 102 MEQ/L (98-107); POTASSIUM 3.2 MEQ/L (3.5-5.1); SODIUM (NA) 141 MEQ/L (136-145)
[2016-11-30 07:50] LABS: ANION GAP 11 MEQ/L (5-15); BICARBONATE 27.8 MEQ/L (21.0-32.0); BLOOD UREA NITROGEN 9 MG/DL (7-18)
[2016-11-30 07:53] LABS: ALT (GPT) 84 U/L (12-78); AST (GOT) 26 U/L (15-37); GLOMERULAR FILTRATION RATE 109 ML/MIN (>89)
[2016-11-30 07:54] LABS: TOTAL BILIRUBIN ADULT 0.3 MG/DL (0.2-1.0)
[2016-11-30 07:56] LABS: ALKALINE PHOSPHATASE 145 U/L (45-117)
[2016-11-30 07:57] LABS: HEMO FLAGS AUTO DIFF
[2016-11-30 08:32] LABS: SCAN/DIFF AUTO DIFF CONFIRMED
[2016-11-30] MEDS: SODIUM CHLORIDE 0.9% FLUSH 5 ML FLUSH IVF SCH ×2 (09:00→21:15)
[2016-11-30] MEDS: HYDROCORTISONE/PRAMOXINE RECTAL FOAM 10 GM CAN RECTAL SCH ×2 (09:00→15:29)
[2016-11-30] MEDS: POLYETHYLENE GLYCOL 17 GM PKG PO SCH (09:00)
[2016-11-30] MEDS: PANTOPRAZOLE SOD 40 MG DELAYED RELEASE TAB PO SCH (09:20)
[2016-11-30] MEDS: FUROSEMIDE 40 MG TAB PO SCH ×2 (09:20→15:35)
[2016-11-30] MEDS: POTASSIUM CHLORIDE 10 MEQ CONTROLLED RELEASE TAB PO SCH ×2 (09:20→21:14)
[2016-11-30] MEDS: DILTIAZEM-CD 180 MG CAP ER PO SCH (09:20)
[2016-11-30] MEDS: predniSONE 10 MG TAB PO SCH ×2 (09:20→21:14)
[2016-11-30] MEDS: FLUCONAZOLE 200 MG TAB PO SCH (09:20)
[2016-11-30] MEDS: FERROUS SULFATE 325 MG (65 MG ELEMENTAL IRON) TAB PO SCH ×2 (09:20→21:15)
[2016-11-30] MEDS: LORazepam 0.5 MG TAB PO SCH ×2 (09:20→21:15)
[2016-11-30] MEDS: DOCUSATE SODIUM 100 MG CAP PO SCH ×2 (09:20→21:15)
[2016-11-30] MEDS: APIXABAN 2.5 MG TABLET PO SCH ×2 (09:24→21:15)
[2016-11-30] MEDS: BUDESONIDE-FORMOTEROL 160/4.5 MCG INHALER INH SCH ×2 (09:25→21:15)
--- NOTE | 2016-11-30 09:45 | HHI.PR ---
Subjective History of Present Illness Patient have sever wheezing have difficulity walking because of SOB/ Wheezing. ..on Elaquis. have redness of right hip surgical wound area. Review of Systems Constitutional Constitutional: Fatigue, Weakness Pulmonary Respiratory: Shortness of Breath, Wheezing GI/Abdomen GI/Abdomen Remarks rectal bleeding. Musculoskeletal MS Remarks Right Hip pain/ swelling. Integumentary Skin Remarks redness of right hip surgical wound area. Vitals/Results Intake & Output 11/29/16 11/29/16 11/30/16 15:00 23:00 07:00 Intake Total 1640 ml 960 ml 220 ml Output Total 900 ml 400 ml 400 ml Balance 740 ml 560 ml -180 ml Intake Oral 1640 ml 960 ml 120 ml IV Total 100 ml Output Urine Total 900 ml 400 ml 400 ml # Voids 2 # Bowel Movements 1 0 0 Vital Signs Vital Signs Date Time Temp Pulse Resp B/P Pulse Ox O2 Delivery O2 Flow Rate FiO2 11/30/16 08:00 96.3 99 18 117/95 97 11/30/16 07:35 95 21 11/30/16 06:39 20 11/30/16 05:56 20 11/30/16 00:00 98.1 119 20 121/95 99 11/29/16 20:00 97.5 121 20 117/77 97 11/29/16 16:00 96.5 116 20 130/91 99 11/29/16 12:00 96.4 133 20 140/94 98 CBC/BMP: 11/30/16 0615 11/30/16 0615 Lab Results Laboratory Tests Test 11/30/16 06:15 White Blood Count 8.5 TH/MM3 Red Blood Count 3.27 MIL/MM3 Hemoglobin 7.9 GM/DL Hematocrit 25.5 % Mean Corpuscular Volume 78.2 FL Mean Corpuscular Hemoglobin 24.1 PG Mean Corpuscular Hemoglobin 30.9 % Concent Red Cell Distribution Width 23.5 % Platelet Count 425 TH/MM3 Mean Platelet Volume 7.1 FL Neutrophils (%) (Auto) 82.7 % Lymphocytes (%) (Auto) 10.1 % Monocytes (%) (Auto) 5.8 % Eosinophils (%) (Auto) 1.0 % Basophils (%) (Auto) 0.4 % Neutrophils # (Auto) 7.0 TH/MM3 Lymphocytes # (Auto) 0.9 TH/MM3 Monocytes # (Auto) 0.5 TH/MM3 Eosinophils # (Auto) 0.1 TH/MM3 Basophils # (Auto) 0.0 TH/MM3 CBC Comment AUTO DIFF Differential Comment AUTO DIFF CONFIRMED Sodium Level 141 MEQ/L Potassium Level 3.2 MEQ/L Chloride Level 102 MEQ/L Carbon Dioxide Level 27.8 MEQ/L Anion Gap 11 MEQ/L Blood Urea Nitrogen 9 MG/DL Creatinine 0.75 MG/DL Estimat Glomerular Filtration 109 ML/MIN Rate Random Glucose 199 MG/DL Calcium Level 8.6 MG/DL Total Bilirubin 0.3 MG/DL Aspartate Amino Transf 26 U/L (AST/SGOT) Alanine Aminotransferase 84 U/L (ALT/SGPT) Alkaline Phosphatase 145 U/L Total Protein 5.6 GM/DL Albumin 2.7 GM/DL Physical Exam General General Appearance: Well Developed, Well Nourished, No Acute Distress, Obese Eyes Eye Exam: Pupils Equal, Sclera White, Extraocular Movement Intact Ears & Nose Ears & Nose Exam: Nasal Mucosa [place] Throat Throat Exam: Oral Mucosa [place] & Moist Neck Neck Exam: Neck Supple, Trachea Midline Pulmonary Resp Exam: Breath Sounds Equal, No Distress, Decreased Bases Resp Remarks Sever Bilateral Wheezing. Cardiology CV Exam: Regular, Normal Sinus Rhythm Gastrointestinal/Abdomen GI Exam: Non-Tender, Bowel Sounds Present, Positive Bowel Movement, Distended Musculoskeletal MS Exam: Joints Intact MS Remarks s/p right hip surgery. Integumentary Skin Exam: Warm, Dry Skin Remarks Erythema of right hip surgical wound area. 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 s/p fall R periprosthetic comminuted Fx..s/p surgery. constipation Anemia Management S/P surgery rt. hip repair, 3-15, form spacer between legs while resting post op ortho care pain management PT eval and tx per ortho orders erythema/cellulitis ? of right hip surgical wound area...per infectious disease and orthopedic to manage. Continue oxygen Duonebs PO steroids Protonix, PUD prophylaxis Antibiotics per ID/ On micafungin & Diflucan follow cultures Bowel regimen having BMs Anemia, post PRBC transfusion follow HH Low iron stores, on PO supplement Constipated, had BM after mag citrate Possible DC tomorrow with HHC. ID recommendations still receiving duonebs q 4-6 hours. CBC with diff CMP in AM. Discussed Condition with: Patient Myron Woodward MD Nov 30, 2016 09:45
--- NOTE | 2016-11-30 11:14 | PD.ORT.PN ---
Subjective Post Op Day #: 10 Pain Scale: increasing Subjective Remarks I think it is infected again Distance Walked walking to bathroom etc Objective Vitals Vital Signs Date Time Temp Pulse Resp B/P Pulse Ox O2 Delivery O2 Flow Rate FiO2 11/30/16 08:00 96.3 99 18 117/95 97 11/30/16 07:35 95 21 11/30/16 06:39 20 11/30/16 05:56 20 11/30/16 00:00 98.1 119 20 121/95 99 11/29/16 20:00 97.5 121 20 117/77 97 11/29/16 16:00 96.5 116 20 130/91 99 11/29/16 12:00 96.4 133 20 140/94 98 I/O 11/29/16 11/29/16 11/29/16 11/30/16 11/30/16 11/30/16 07:00 15:00 23:00 07:00 15:00 23:00 Intake Total 870 ml 1640 ml 960 ml 220 ml Output Total 3100 ml 900 ml 400 ml 400 ml Balance -2230 ml 740 ml 560 ml -180 ml Intake Oral 870 ml 1640 ml 960 ml 120 ml IV Total 100 ml Output Urine Total 3100 ml 900 ml 400 ml 400 ml # Voids 2 # Bowel Movements 0 1 0 0 Result Diagram: 11/30/16 0615 11/30/16 0615 Imaging Microbiology Date/Time Procedure Status Source Growth 11/20/16 17:28 Gram Stain - Final Resulted Wound Hip 11/20/16 17:28 Wound Culture - Preliminary Resulted Wound Hip NO GROWTH IN 24 HOURS. 11/20/16 17:28 Fungal Smear - Final Resulted Wound Hip NO FUNGAL ELEMENTS SEEN. 11/20/16 17:28 Fungal Culture Resulted Wound Hip Pending 11/20/16 17:28 Acid Fast Stain Received Wound Hip Pending 11/20/16 17:28 Mycobacterial Culture Received Wound Hip Pending Microbiology Date/Time Procedure Status Source Growth 11/20/16 17:28 Gram Stain - Final Resulted Wound Hip 11/20/16 17:28 Wound Culture Resulted Wound Hip Pending 11/20/16 17:28 Fungal Smear - Final Resulted Wound Hip NO FUNGAL ELEMENTS SEEN. 11/20/16 17:28 Fungal Culture Resulted Wound Hip Pending 11/20/16 17:28 Acid Fast Stain Received Wound Hip Pending 11/20/16 17:28 Mycobacterial Culture Received Wound Hip Pending Last 72 hours Impressions Hip X-Ray 11/20/16 0000 Signed Impressions: Service Date/Time: Sunday, November 20, 2016 22:03 - CONCLUSION: Postsurgical changes are noted. Trae Cano MD Last 72 hours Impressions Chest X-Ray 11/12/16 0000 Signed Impressions: Service Date/Time: Saturday, November 12, 2016 12:56 - CONCLUSION: No acute disease. Davion Carranza MD Abdomen/Pelvis CT 11/12/16 0000 Signed Impressions: Service Date/Time: Saturday, November 12, 2016 08:59 - CONCLUSION: 1. Wall thickening along the lateral cecum. Colonoscopy may be warranted. No acute inflammatory process. 2. No renal calculi or hydronephrosis. 3. Copious amount of stool throughout the large bowel. Davion Carranza MD Hip and Pelvis X-Ray 11/11/16 0000 Signed Impressions: Service Date/Time: Friday, November 11, 2016 19:32 - CONCLUSION: No acute radiographic abnormality right bipolar hip arthroplasty. Adin Kendall MD Last 24 hours Impressions Hip MRI 10/02/16 0000 Signed Impressions: Service Date/Time: Sunday, October 02, 2016 09:13 - CONCLUSION: 12 cm collection in the right hip and buttock region, likely hematoma/seroma. The lesion could certainly be drained or sampled without difficulty under CT guidance. Adin Guillermo MD Objective Remarks vac dressing working as planned, no active drainage some erythema all around but no induration, complains of more pain Afebrile No need to change as yet Assessment & Plan Assessment and Plan reassess wound tomorrow. change vac dressing check CBC ESR and CRP C/S as needed Shaan Lnido MD Nov 30, 2016 11:14
[2016-11-30] MEDS: METHYLNALTREXONE BROMIDE 12 MG/0.6 ML VIAL SQ SCH (15:35)
[2016-11-30] MEDS: MICAFUNGIN INJ 150 MG in SODIUM CHLORIDE 0.9% INJ 100 ML IV SCH (21:12)
[2016-11-30] MEDS: INSULIN DETEMIR 100 UNITS/ML VIAL SQ SCH (21:14)
[2016-11-30] MEDS: ATORVASTATIN 20 MG TAB PO SCH (21:14)
[2016-11-30] MEDS: MONTELUKAST SODIUM 10 MG TAB PO SCH (21:14)
[2016-11-30] MEDS: TEMAZEPAM 15 MG CAP PO PRN (22:43)
[2016-12-01] VITALS (7 sets, daily range): BP systolic 130–143; BP diastolic 94–97; PULSE 97–129; RESP 16–20; TEMP 95.4–97.9; O2SAT 95–98
[2016-12-01] MEDS: HYDROCORTISONE/PRAMOXINE RECTAL FOAM 10 GM CAN RECTAL SCH ×3 (00:06→17:00)
[2016-12-01] MEDS: PCA - TOTAL MG DILAUDID DELIVERED PER SHIFT OTHER SCH ×3 (05:11→21:08)
[2016-12-01] MEDS: ACETAMINOPHEN/HYDROcodone 325 MG/5 MG TAB PO PRN ×4 (06:09→19:32)
[2016-12-01] MEDS: SUCRALFATE 1 GM TAB PO SCH ×3 (06:09→17:02)
[2016-12-01] MEDS: INSULIN ASPART SUPPLEMENTAL SCALE SQ SCH ×4 (06:12→21:07)
[2016-12-01] MEDS: RESP: ALBUTEROL 2.5 MG/IPRATROPIUM 0.5 MG NEB (PRN) NEB ×3 (07:40→19:44)
[2016-12-01] MEDS: SODIUM CHLORIDE 0.9% FLUSH 5 ML FLUSH IVF SCH ×2 (09:00→21:04)
[2016-12-01] MEDS: POLYETHYLENE GLYCOL 17 GM PKG PO SCH (09:00)
--- NOTE | 2016-12-01 09:07 | HHI.PR ---
Subjective History of Present Illness Patient have sever wheezing have difficulity walking because of SOB/ Wheezing. ..on Elaquis. have redness of right hip surgical wound area.. wants pain medicine. Review of Systems Constitutional Constitutional: Fatigue, Weakness Pulmonary Respiratory: Shortness of Breath, Wheezing GI/Abdomen GI/Abdomen Remarks rectal bleeding. Musculoskeletal MS Remarks Right Hip pain/ swelling. Integumentary Skin Remarks redness of right hip surgical wound area. Vitals/Results Intake & Output 11/30/16 11/30/16 12/01/16 15:00 23:00 07:00 Intake Total 1320 ml 150 ml Output Total 850 ml 750 ml 700 ml Balance 470 ml -600 ml -700 ml Intake Oral 1320 ml IV Total 150 ml Output Urine Total 850 ml 750 ml 700 ml # Voids 1 # Bowel Movements 1 Vital Signs Vital Signs Date Time Temp Pulse Resp B/P Pulse Ox O2 Delivery O2 Flow Rate FiO2 12/01/16 07:41 98 12/01/16 07:00 95.4 101 20 143/97 97 12/01/16 00:46 97.9 109 18 136/94 98 11/30/16 23:49 18 11/30/16 20:29 97.8 108 18 141/98 98 11/30/16 20:27 98 21 11/30/16 16:00 96.7 109 18 133/96 97 11/30/16 12:00 96.3 107 18 133/96 98 CBC/BMP: 11/30/16 0615 11/30/16 0615 Lab Results Laboratory Tests Test 12/01/16 06:15 Erythrocyte Sedimentation Rate 31 mm/hr Physical Exam General General Appearance: Well Developed, Well Nourished, No Acute Distress, Obese Eyes Eye Exam: Pupils Equal, Sclera White, Extraocular Movement Intact Ears & Nose Ears & Nose Exam: Nasal Mucosa [place] Throat Throat Exam: Oral Mucosa [place] & Moist Neck Neck Exam: Neck Supple, Trachea Midline Pulmonary Resp Exam: Breath Sounds Equal, No Distress, Decreased Bases Resp Remarks Sever Bilateral Wheezing. Cardiology CV Exam: Regular, Normal Sinus Rhythm Gastrointestinal/Abdomen GI Exam: Non-Tender, Bowel Sounds Present, Positive Bowel Movement, Distended Musculoskeletal MS Exam: Joints Intact MS Remarks s/p right hip surgery. Integumentary Skin Exam: Warm, Dry Skin Remarks Erythema of right hip surgical wound area. 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 s/p fall R periprosthetic comminuted Fx..s/p surgery. constipation Anemia Management S/P surgery rt. hip repair, 3-15, form spacer between legs while resting post op ortho care pain management PT eval and tx per ortho orders erythema/cellulitis ? of right hip surgical wound area...per infectious disease and orthopedic to manage. Continue oxygen Duonebs PO steroids Protonix, PUD prophylaxis Antibiotics per ID/ On micafungin & Diflucan follow cultures Bowel regimen having BMs Anemia, post PRBC transfusion follow HH Low iron stores, on PO supplement Constipated, had BM after mag citrate Possible DC tomorrow with C. ID recommendations still receiving duonebs q 4-6 hours. CBC with diff CMP in AM. Discussed Condition with: Patient Myron Woodward MD Dec 01, 2016 09:06
[2016-12-01] MEDS: BUDESONIDE-FORMOTEROL 160/4.5 MCG INHALER INH SCH ×2 (09:25→21:04)
[2016-12-01] MEDS: FLUCONAZOLE 200 MG TAB PO SCH (09:27)
[2016-12-01] MEDS: APIXABAN 2.5 MG TABLET PO SCH ×2 (09:27→21:05)
[2016-12-01] MEDS: FERROUS SULFATE 325 MG (65 MG ELEMENTAL IRON) TAB PO SCH ×2 (09:27→21:05)
[2016-12-01] MEDS: DILTIAZEM-CD 180 MG CAP ER PO SCH (09:28)
[2016-12-01] MEDS: DOCUSATE SODIUM 100 MG CAP PO SCH ×2 (09:28→21:05)
[2016-12-01] MEDS: PANTOPRAZOLE SOD 40 MG DELAYED RELEASE TAB PO SCH (09:28)
[2016-12-01] MEDS: FUROSEMIDE 40 MG TAB PO SCH ×2 (09:28→17:02)
[2016-12-01] MEDS: predniSONE 10 MG TAB PO SCH ×2 (09:28→21:04)
[2016-12-01] MEDS: POTASSIUM CHLORIDE 10 MEQ CONTROLLED RELEASE TAB PO SCH ×2 (09:28→21:05)
[2016-12-01] MEDS: LORazepam 0.5 MG TAB PO SCH ×2 (09:28→21:05)
[2016-12-01] MEDS: HYDROmorphone HCL PF 2 MG/ML VIAL IV PUSH PRN ×4 (09:30→21:55)
[2016-12-01] MEDS ORDERED: HYDR-3516 PO (12:13)
--- NOTE | 2016-12-01 12:20 | PD.ORT.PN ---
Subjective Post Op Day #: 11 Pain Scale: lot of pain, dilaudid has been cut down Subjective Remarks As above Objective Vitals Vital Signs Date Time Temp Pulse Resp B/P Pulse Ox O2 Delivery O2 Flow Rate FiO2 12/01/16 07:41 98 12/01/16 07:00 95.4 101 20 143/97 97 12/01/16 00:46 97.9 109 18 136/94 98 11/30/16 23:49 18 11/30/16 20:29 97.8 108 18 141/98 98 11/30/16 20:27 98 21 11/30/16 16:00 96.7 109 18 133/96 97 I/O 11/30/16 11/30/16 11/30/16 12/01/16 12/01/16 12/01/16 07:00 15:00 23:00 07:00 15:00 23:00 Intake Total 220 ml 1320 ml 150 ml Output Total 400 ml 850 ml 750 ml 700 ml Balance -180 ml 470 ml -600 ml -700 ml Intake Oral 120 ml 1320 ml IV Total 100 ml 150 ml Output Urine Total 400 ml 850 ml 750 ml 700 ml # Voids 1 # Bowel Movements 0 1 Result Diagram: 11/30/16 0615 11/30/16 0615 Other Results ESR 31, CRP, 0.29 Imaging Microbiology Date/Time Procedure Status Source Growth 11/20/16 17:28 Gram Stain - Final Resulted Wound Hip 11/20/16 17:28 Wound Culture - Preliminary Resulted Wound Hip NO GROWTH IN 24 HOURS. 11/20/16 17:28 Fungal Smear - Final Resulted Wound Hip NO FUNGAL ELEMENTS SEEN. 11/20/16 17:28 Fungal Culture Resulted Wound Hip Pending 11/20/16 17:28 Acid Fast Stain Received Wound Hip Pending 11/20/16 17:28 Mycobacterial Culture Received Wound Hip Pending Microbiology Date/Time Procedure Status Source Growth 11/20/16 17:28 Gram Stain - Final Resulted Wound Hip 11/20/16 17:28 Wound Culture Resulted Wound Hip Pending 11/20/16 17:28 Fungal Smear - Final Resulted Wound Hip NO FUNGAL ELEMENTS SEEN. 11/20/16 17:28 Fungal Culture Resulted Wound Hip Pending 11/20/16 17:28 Acid Fast Stain Received Wound Hip Pending 11/20/16 17:28 Mycobacterial Culture Received Wound Hip Pending Last 72 hours Impressions Hip X-Ray 11/20/16 0000 Signed Impressions: Service Date/Time: Sunday, November 20, 2016 22:03 - CONCLUSION: Postsurgical changes are noted. Trae aCno MD Last 72 hours Impressions Chest X-Ray 11/12/16 0000 Signed Impressions: Service Date/Time: Saturday, November 12, 2016 12:56 - CONCLUSION: No acute disease. Davion Carranza MD Abdomen/Pelvis CT 11/12/16 0000 Signed Impressions: Service Date/Time: Saturday, November 12, 2016 08:59 - CONCLUSION: 1. Wall thickening along the lateral cecum. Colonoscopy may be warranted. No acute inflammatory process. 2. No renal calculi or hydronephrosis. 3. Copious amount of stool throughout the large bowel. Davion Carranza MD Hip and Pelvis X-Ray 11/11/16 0000 Signed Impressions: Service Date/Time: Friday, November 11, 2016 19:32 - CONCLUSION: No acute radiographic abnormality right bipolar hip arthroplasty. Adin Kendall MD Last 24 hours Impressions Hip MRI 10/02/16 0000 Signed Impressions: Service Date/Time: Sunday, October 02, 2016 09:13 - CONCLUSION: 12 cm collection in the right hip and buttock region, likely hematoma/seroma. The lesion could certainly be drained or sampled without difficulty under CT guidance. Adin Guillermo MD Procedures New VAC dressing applied Objective Remarks vac dressing working as planned, no active drainage Incision looks great, less induration, no redness, no active drainage New vac dressing applied Assessment & Plan Assessment and Plan Incision looks good New vac dressing to stay one week, patient advised to change batteries prn. Home tomorrow with home cARE AND iv ANTIFUNGALS To continue IV macrofungin till January 02 FU in office moday dec 09, to call for appointment Rx HC 5 and tramadol Shaan Lindo MD Dec 01, 2016 12:20
[2016-12-01] MEDS: MICAFUNGIN INJ 150 MG in SODIUM CHLORIDE 0.9% INJ 100 ML IV SCH (21:01)
[2016-12-01] MEDS: ATORVASTATIN 20 MG TAB PO SCH (21:04)
[2016-12-01] MEDS: MONTELUKAST SODIUM 10 MG TAB PO SCH (21:05)
[2016-12-01] MEDS: INSULIN DETEMIR 100 UNITS/ML VIAL SQ SCH (21:07)
[2016-12-02 00:03] VITALS: BP 109/65; PULSE 117; RESP 19; TEMP 97; O2SAT 97
[2016-12-02] MEDS: ACETAMINOPHEN/HYDROcodone 325 MG/5 MG TAB PO PRN ×4 (00:43→21:45)
[2016-12-02] MEDS: HYDROCORTISONE/PRAMOXINE RECTAL FOAM 10 GM CAN RECTAL SCH ×3 (00:49→16:31)
[2016-12-02] MEDS: PCA - TOTAL MG DILAUDID DELIVERED PER SHIFT OTHER SCH ×3 (05:00→20:51)
[2016-12-02] MEDS: SUCRALFATE 1 GM TAB PO SCH ×3 (06:13→16:57)
[2016-12-02] MEDS: HYDROmorphone HCL PF 2 MG/ML VIAL IV PUSH PRN ×2 (06:15→13:12)
[2016-12-02] MEDS: INSULIN ASPART SUPPLEMENTAL SCALE SQ SCH ×4 (06:16→20:49)
[2016-12-02 06:33] LABS: AUTOMATED NEUTROPHIL # 7.6 TH/MM3 (1.8-7.7); BASOPHIL % 0.3 % (0.0-2.0); EOSINOPHIL # 0.1 TH/MM3 (0-0.4); EOSINOPHIL % 0.7 % (0.0-4.0); HEMATOCRIT 26.3 % (39.0-51.0); LYMPH % 9.1 % (9.0-44.0); LYMPHOCYTE # 0.8 TH/MM3 (1.0-4.8); MEAN CORPUSCULAR HEMOGLOBIN 24.8 PG (27.0-34.0); MEAN CORPUSCULAR HGB CONC 32.3 % (32.0-36.0); MONO % 5.5 % (0.0-8.0); NEUT % 84.4 % (16.0-70.0); PLATELET COUNT 481 TH/MM3 (150-450); RED BLOOD COUNT 3.42 MIL/MM3 (4.50-5.90); RED CELL DISTRIBUTION WIDTH 22.6 % (11.6-17.2)
[2016-12-02 06:36] LABS: CHLORIDE 101 MEQ/L (98-107); HEMO FLAGS AUTO DIFF; POTASSIUM 3.6 MEQ/L (3.5-5.1); SODIUM (NA) 139 MEQ/L (136-145)
[2016-12-02 06:44] LABS: ANION GAP 8 MEQ/L (5-15); BICARBONATE 29.9 MEQ/L (21.0-32.0); BLOOD UREA NITROGEN 12 MG/DL (7-18)
[2016-12-02 06:47] LABS: ALT (GPT) 109 U/L (12-78); AST (GOT) 40 U/L (15-37); GLOMERULAR FILTRATION RATE 106 ML/MIN (>89)
[2016-12-02 06:48] LABS: TOTAL BILIRUBIN ADULT 0.3 MG/DL (0.2-1.0)
[2016-12-02 06:50] LABS: ALKALINE PHOSPHATASE 180 U/L (45-117)
[2016-12-02 07:04] LABS: CORRECTED NUCLEATED RBC 1 /100 WBC (0-0); METAMYELOCYTES 4 % (0-1); MYELOCYTES 2 % (0-0); NEUTROPHIL # MANUAL DIFF 7.5 TH/MM3 (1.8-7.7); PLATELET ESTIMATE SMEAR HIGH (NORMAL); PLATELET MORPHOLOGY NORMAL (NORMAL); POLYS (SEG NEUTROPHILS) 77 % (16-70); SCAN/DIFF FINAL DIFF MANUAL; WBC DIFF SAMPLE 100
[2016-12-02 08:00] VITALS: BP 127/89; PULSE 96; RESP 18; TEMP 97.2; O2SAT 96
--- NOTE | 2016-12-02 08:17 | HHI.PR ---
Subjective History of Present Illness Patient have sever wheezing have difficulity walking because of SOB/ Wheezing. ..on Elaquis. have redness of right hip surgical wound area. Ok to DC Home today per orthopedic. Review of Systems Constitutional Constitutional: Fatigue, Weakness Pulmonary Respiratory: Shortness of Breath, Wheezing GI/Abdomen GI/Abdomen Remarks rectal bleeding. Musculoskeletal MS Remarks Right Hip pain/ swelling. Integumentary Skin Remarks redness of right hip surgical wound area. Vitals/Results Intake & Output 12/01/16 12/01/16 12/02/16 15:00 23:00 07:00 Intake Total 150 ml Output Total 600 ml 575 ml 1000 ml Balance -600 ml -425 ml -1000 ml IV Total 150 ml Output Urine Total 600 ml 575 ml 1000 ml Vital Signs Vital Signs Date Time Temp Pulse Resp B/P Pulse Ox O2 Delivery O2 Flow Rate FiO2 12/02/16 01:56 18 12/02/16 00:03 97.0 117 19 109/65 97 12/01/16 22:36 18 12/01/16 20:00 97.0 129 16 130/95 96 12/01/16 20:00 97.0 129 16 130/95 96 12/01/16 19:44 95 12/01/16 16:00 96.7 103 20 142/95 96 12/01/16 12:00 96.8 97 19 134/97 96 CBC/BMP: 12/02/16 0617 12/02/16 0617 Lab Results Laboratory Tests Test 12/02/16 06:17 White Blood Count 9.0 TH/MM3 Red Blood Count 3.42 MIL/MM3 Hemoglobin 8.5 GM/DL Hematocrit 26.3 % Mean Corpuscular Volume 77.0 FL Mean Corpuscular Hemoglobin 24.8 PG Mean Corpuscular Hemoglobin 32.3 % Concent Red Cell Distribution Width 22.6 % Platelet Count 481 TH/MM3 Mean Platelet Volume 6.4 FL Neutrophils (%) (Auto) 84.4 % Lymphocytes (%) (Auto) 9.1 % Monocytes (%) (Auto) 5.5 % Eosinophils (%) (Auto) 0.7 % Basophils (%) (Auto) 0.3 % Neutrophils # (Auto) 7.6 TH/MM3 Lymphocytes # (Auto) 0.8 TH/MM3 Monocytes # (Auto) 0.5 TH/MM3 Eosinophils # (Auto) 0.1 TH/MM3 Basophils # (Auto) 0.0 TH/MM3 CBC Comment AUTO DIFF Differential Total Cells 100 Counted Neutrophils % (Manual) 77 % Lymphocytes % 8 % Monocytes % 9 % Neutrophils # (Manual) 7.5 TH/MM3 Metamyelocytes 4 % Myelocytes 2 % Nucleated Red Blood Cells 1 /100 WBC Differential Comment FINAL DIFF MANUAL Platelet Estimate HIGH Platelet Morphology Comment NORMAL Sodium Level 139 MEQ/L Potassium Level 3.6 MEQ/L Chloride Level 101 MEQ/L Carbon Dioxide Level 29.9 MEQ/L Anion Gap 8 MEQ/L Blood Urea Nitrogen 12 MG/DL Creatinine 0.77 MG/DL Estimat Glomerular Filtration 106 ML/MIN Rate Random Glucose 148 MG/DL Calcium Level 8.8 MG/DL Total Bilirubin 0.3 MG/DL Aspartate Amino Transf 40 U/L (AST/SGOT) Alanine Aminotransferase 109 U/L (ALT/SGPT) Alkaline Phosphatase 180 U/L Total Protein 6.0 GM/DL Albumin 3.0 GM/DL Physical Exam General General Appearance: Well Developed, Well Nourished, No Acute Distress, Obese Eyes Eye Exam: Pupils Equal, Sclera White, Extraocular Movement Intact Ears & Nose Ears & Nose Exam: Nasal Mucosa [place] Throat Throat Exam: Oral Mucosa [place] & Moist Neck Neck Exam: Neck Supple, Trachea Midline Pulmonary Resp Exam: Breath Sounds Equal, No Distress, Decreased Bases Resp Remarks Sever Bilateral Wheezing. Cardiology CV Exam: Regular, Normal Sinus Rhythm Gastrointestinal/Abdomen GI Exam: Non-Tender, Bowel Sounds Present, Positive Bowel Movement, Distended Musculoskeletal MS Exam: Joints Intact MS Remarks s/p right hip surgery. Integumentary Skin Exam: Warm, Dry Skin Remarks Erythema of right hip surgical wound area. 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 s/p fall R periprosthetic comminuted Fx..s/p surgery. constipation Anemia Management S/P surgery rt. hip repair, 3-15, form spacer between legs while resting post op ortho care pain management PT eval and tx per ortho orders erythema/cellulitis ? of right hip surgical wound area...per infectious disease and orthopedic to manage. Continue oxygen Duonebs PO steroids Protonix, PUD prophylaxis Antibiotics per ID/ On micafungin & Diflucan follow cultures Bowel regimen having BMs Anemia, post PRBC transfusion follow HH Low iron stores, on PO supplement Constipated, had BM after mag citrate Possible DC tomorrow with HHC. ID recommendations still receiving duonebs q 4-6 hours. Ok to DC Home today per orthopedic. ok to DC Home today with HHC. F/U with PCP /GI/Hematology/ Cardiology/Pulmonary 1 week. Discussed Condition with: Patient Myron Woodward MD Dec 02, 2016 08:17
[2016-12-02] MEDS ORDERED: APIX2.5T PO (08:40)
[2016-12-02] MEDS: POLYETHYLENE GLYCOL 17 GM PKG PO SCH (08:44)
[2016-12-02] MEDS: BUDESONIDE-FORMOTEROL 160/4.5 MCG INHALER INH SCH ×2 (08:44→20:44)
[2016-12-02] MEDS: POTASSIUM CHLORIDE 10 MEQ CONTROLLED RELEASE TAB PO SCH ×2 (08:46→20:47)
[2016-12-02] MEDS: predniSONE 10 MG TAB PO SCH ×2 (08:46→20:47)
[2016-12-02] MEDS: FERROUS SULFATE 325 MG (65 MG ELEMENTAL IRON) TAB PO SCH ×2 (08:47→20:48)
[2016-12-02] MEDS: APIXABAN 2.5 MG TABLET PO SCH ×2 (08:47→20:48)
[2016-12-02] MEDS: FUROSEMIDE 40 MG TAB PO SCH ×2 (08:47→16:57)
[2016-12-02] MEDS: LORazepam 0.5 MG TAB PO SCH ×2 (08:47→20:46)
[2016-12-02] MEDS: FLUCONAZOLE 200 MG TAB PO SCH (08:47)
[2016-12-02] MEDS: PANTOPRAZOLE SOD 40 MG DELAYED RELEASE TAB PO SCH (08:47)
[2016-12-02] MEDS: DOCUSATE SODIUM 100 MG CAP PO SCH ×2 (08:47→20:46)
[2016-12-02] MEDS: DILTIAZEM-CD 180 MG CAP ER PO SCH (08:47)
[2016-12-02] MEDS: SODIUM CHLORIDE 0.9% FLUSH 5 ML FLUSH IVF SCH ×2 (08:48→20:49)
[2016-12-02] MEDS: METHYLNALTREXONE BROMIDE 12 MG/0.6 ML VIAL SQ SCH (09:00)
[2016-12-02] MEDS: RESP: ALBUTEROL 2.5 MG/IPRATROPIUM 0.5 MG NEB (PRN) NEB (10:33)
[2016-12-02 12:00] VITALS: BP 136/86; PULSE 104; RESP 18; TEMP 97.9; O2SAT 97
[2016-12-02 16:00] VITALS: BP 120/89; PULSE 102; RESP 18; TEMP 97.6; O2SAT 98
[2016-12-02 20:00] VITALS: BP 134/101; PULSE 111; RESP 18; TEMP 97.9; O2SAT 98
[2016-12-02] MEDS: MICAFUNGIN INJ 150 MG in SODIUM CHLORIDE 0.9% INJ 100 ML IV SCH (20:45)
[2016-12-02] MEDS: MONTELUKAST SODIUM 10 MG TAB PO SCH (20:46)
[2016-12-02] MEDS: ATORVASTATIN 20 MG TAB PO SCH (20:47)
[2016-12-02] MEDS: INSULIN DETEMIR 100 UNITS/ML VIAL SQ SCH (20:50)
[2016-12-03] VITALS: BP_SYST 138; BP_SYST 153; BP_DIAS 87; BP_DIAS 96; PULSE 87; PULSE 97; RESP 18; RESP 20; TEMP 97.8; TEMP 98.7; O2SAT 96; O2SAT 98
[2016-12-03] MEDS: HYDROCORTISONE/PRAMOXINE RECTAL FOAM 10 GM CAN RECTAL SCH ×3 (01:00→17:00)
[2016-12-03] MEDS: ACETAMINOPHEN/HYDROcodone 325 MG/5 MG TAB PO PRN ×3 (05:33→13:09)
[2016-12-03] MEDS: PCA - TOTAL MG DILAUDID DELIVERED PER SHIFT OTHER SCH ×2 (05:42→14:00)
[2016-12-03 06:21] LABS: AUTOMATED NEUTROPHIL # 7.7 TH/MM3 (1.8-7.7); BASOPHIL # 0.1 TH/MM3 (0-0.2); BASOPHIL % 0.6 % (0.0-2.0); EOSINOPHIL # 0.1 TH/MM3 (0-0.4); EOSINOPHIL % 1.3 % (0.0-4.0); HEMATOCRIT 27.9 % (39.0-51.0); LYMPH % 11.2 % (9.0-44.0); LYMPHOCYTE # 1.1 TH/MM3 (1.0-4.8); MEAN CORPUSCULAR HEMOGLOBIN 23.9 PG (27.0-34.0); MONO % 5.4 % (0.0-8.0); NEUT % 81.5 % (16.0-70.0); PLATELET COUNT 491 TH/MM3 (150-450); RED BLOOD COUNT 3.63 MIL/MM3 (4.50-5.90); RED CELL DISTRIBUTION WIDTH 22.6 % (11.6-17.2); WHITE BLOOD COUNT 9.5 TH/MM3 (4.0-11.0)
[2016-12-03] MEDS: SUCRALFATE 1 GM TAB PO SCH ×3 (06:21→17:39)
[2016-12-03 06:23] LABS: HEMO FLAGS AUTO DIFF
[2016-12-03] MEDS: INSULIN ASPART SUPPLEMENTAL SCALE SQ SCH ×3 (06:27→17:11)
[2016-12-03 06:30] LABS: CHLORIDE 100 MEQ/L (98-107); POTASSIUM 3.4 MEQ/L (3.5-5.1); SODIUM (NA) 140 MEQ/L (136-145)
[2016-12-03 06:35] LABS: ANION GAP 9 MEQ/L (5-15); BICARBONATE 30.7 MEQ/L (21.0-32.0); BLOOD UREA NITROGEN 13 MG/DL (7-18)
[2016-12-03 06:38] LABS: ALT (GPT) 90 U/L (12-78); AST (GOT) 25 U/L (15-37); GLOMERULAR FILTRATION RATE 120 ML/MIN (>89)
[2016-12-03 06:40] LABS: TOTAL BILIRUBIN ADULT 0.4 MG/DL (0.2-1.0)
[2016-12-03 06:41] LABS: ALKALINE PHOSPHATASE 191 U/L (45-117)
[2016-12-03 07:06] LABS: BANDS 6 % (0-6); CORRECTED NUCLEATED RBC 3 /100 WBC (0-0); EOSINOPHILS 3 % (0-4); METAMYELOCYTES 1 % (0-1); NEUTROPHIL # MANUAL DIFF 8.1 TH/MM3 (1.8-7.7); POLYS (SEG NEUTROPHILS) 78 % (16-70); WBC DIFF SAMPLE 100
[2016-12-03 07:08] LABS: OVALOCYTES 1+ (NORMAL); PLATELET ESTIMATE SMEAR HIGH (NORMAL); PLATELET MORPHOLOGY NORMAL (NORMAL); ROULEAUX PRESENT (NORMAL); SCAN/DIFF FINAL DIFF MANUAL
[2016-12-03 08:00] VITALS: BP 147/96; PULSE 92; RESP 18; TEMP 96.9; O2SAT 98
--- NOTE | 2016-12-03 08:29 | HHI.PR ---
Subjective History of Present Illness Patient have sever wheezing have difficulity walking because of SOB/ Wheezing. ..on Elaquis. have redness of right hip surgical wound area. Ok to DC Home today per orthopedic. OK TO DC Home today with [facility]. Review of Systems Constitutional Constitutional: Fatigue, Weakness Pulmonary Respiratory: Shortness of Breath, Wheezing GI/Abdomen GI/Abdomen Remarks rectal bleeding. Musculoskeletal MS Remarks Right Hip pain/ swelling. Integumentary Skin Remarks redness of right hip surgical wound area. Vitals/Results Intake & Output 12/02/16 12/02/16 12/03/16 15:00 23:00 07:00 Intake Total 750 ml 680 ml 180 ml Output Total 1050 ml 400 ml 250 ml Balance -300 ml 280 ml -70 ml Intake Oral 750 ml 680 ml 180 ml Output Urine Total 1050 ml 400 ml 250 ml # Bowel Movements 0 1 Vital Signs Vital Signs Date Time Temp Pulse Resp B/P Pulse Ox O2 Delivery O2 Flow Rate FiO2 12/03/16 08:00 96.9 92 18 147/96 98 12/03/16 00:00 97.8 97 18 138/96 98 12/02/16 20:00 97.9 111 18 134/101 98 12/02/16 16:00 97.6 102 18 120/89 98 12/02/16 14:15 18 12/02/16 12:00 97.9 104 18 136/86 97 12/02/16 10:02 18 CBC/BMP: 12/03/16 0535 12/03/16 0535 Lab Results Laboratory Tests Test 12/03/16 05:35 White Blood Count 9.5 TH/MM3 Red Blood Count 3.63 MIL/MM3 Hemoglobin 8.7 GM/DL Hematocrit 27.9 % Mean Corpuscular Volume 77.0 FL Mean Corpuscular Hemoglobin 23.9 PG Mean Corpuscular Hemoglobin 31.0 % Concent Red Cell Distribution Width 22.6 % Platelet Count 491 TH/MM3 Mean Platelet Volume 6.7 FL Neutrophils (%) (Auto) 81.5 % Lymphocytes (%) (Auto) 11.2 % Monocytes (%) (Auto) 5.4 % Eosinophils (%) (Auto) 1.3 % Basophils (%) (Auto) 0.6 % Neutrophils # (Auto) 7.7 TH/MM3 Lymphocytes # (Auto) 1.1 TH/MM3 Monocytes # (Auto) 0.5 TH/MM3 Eosinophils # (Auto) 0.1 TH/MM3 Basophils # (Auto) 0.1 TH/MM3 CBC Comment AUTO DIFF Differential Total Cells 100 Counted Neutrophils % (Manual) 78 % Band Neutrophils % 6 % Lymphocytes % 6 % Monocytes % 6 % Eosinophils % 3 % Neutrophils # (Manual) 8.1 TH/MM3 Metamyelocytes 1 % Nucleated Red Blood Cells 3 /100 WBC Differential Comment FINAL DIFF MANUAL Platelet Estimate HIGH Platelet Morphology Comment NORMAL Basophilic [place]ipp[place] Ovalocytes 1+ Rouleau PRESENT Sodium Level 140 MEQ/L Potassium Level 3.4 MEQ/L Chloride Level 100 MEQ/L Carbon Dioxide Level 30.7 MEQ/L Anion Gap 9 MEQ/L Blood Urea Nitrogen 13 MG/DL Creatinine 0.69 MG/DL Estimat Glomerular Filtration 120 ML/MIN Rate Random Glucose 126 MG/DL Calcium Level 9.3 MG/DL Total Bilirubin 0.4 MG/DL Aspartate Amino Transf 25 U/L (AST/SGOT) Alanine Aminotransferase 90 U/L (ALT/SGPT) Alkaline Phosphatase 191 U/L Total Protein 6.0 GM/DL Albumin 3.0 GM/DL Physical Exam General General Appearance: Well Developed, Well Nourished, No Acute Distress, Obese Eyes Eye Exam: Pupils Equal, Sclera White, Extraocular Movement Intact Ears & Nose Ears & Nose Exam: Nasal Mucosa [place] Throat Throat Exam: Oral Mucosa [place] & Moist Neck Neck Exam: Neck Supple, Trachea Midline Pulmonary Resp Exam: Breath Sounds Equal, No Distress, Decreased Bases Resp Remarks Sever Bilateral Wheezing. Cardiology CV Exam: Regular, Normal Sinus Rhythm Gastrointestinal/Abdomen GI Exam: Non-Tender, Bowel Sounds Present, Positive Bowel Movement, Distended Musculoskeletal MS Exam: Joints Intact MS Remarks s/p right hip surgery. Integumentary Skin Exam: Warm, Dry Skin Remarks Erythema of right hip surgical wound area. 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 s/p fall R periprosthetic comminuted Fx..s/p surgery. constipation Anemia Management S/P surgery rt. hip repair, 3-15, form spacer between legs while resting post op ortho care pain management PT eval and tx per ortho orders erythema/cellulitis ? of right hip surgical wound area...per infectious disease and orthopedic to manage. Continue oxygen Duonebs PO steroids Protonix, PUD prophylaxis Antibiotics per ID/ On micafungin & Diflucan follow cultures Bowel regimen having BMs Anemia, post PRBC transfusion follow HH Low iron stores, on PO supplement Constipated, had BM after mag citrate Possible DC tomorrow with HHC. ID recommendations still receiving duonebs q 4-6 hours. Ok to DC Home today per orthopedic. ok to DC Home today with HHC. F/U with PCP /GI/Hematology/ Cardiology/Pulmonary 1 week. Discussed Condition with: Patient Myorn Woodward MD Dec 03, 2016 08:29
[2016-12-03] MEDS: SODIUM CHLORIDE 0.9% FLUSH 5 ML FLUSH IVF SCH (09:00)
[2016-12-03] MEDS: LORazepam 0.5 MG TAB PO SCH (09:27)
[2016-12-03] MEDS: predniSONE 10 MG TAB PO SCH (09:28)
[2016-12-03] MEDS: FUROSEMIDE 40 MG TAB PO SCH ×2 (09:28→17:39)
[2016-12-03] MEDS: APIXABAN 2.5 MG TABLET PO SCH (09:28)
[2016-12-03] MEDS: POTASSIUM CHLORIDE 10 MEQ CONTROLLED RELEASE TAB PO SCH (09:28)
[2016-12-03] MEDS: DOCUSATE SODIUM 100 MG CAP PO SCH (09:29)
[2016-12-03] MEDS: PANTOPRAZOLE SOD 40 MG DELAYED RELEASE TAB PO SCH (09:29)
[2016-12-03] MEDS: DILTIAZEM-CD 180 MG CAP ER PO SCH (09:29)
[2016-12-03] MEDS: FERROUS SULFATE 325 MG (65 MG ELEMENTAL IRON) TAB PO SCH (09:30)
[2016-12-03] MEDS: FLUCONAZOLE 200 MG TAB PO SCH (09:30)
[2016-12-03] MEDS: BUDESONIDE-FORMOTEROL 160/4.5 MCG INHALER INH SCH (09:32)
[2016-12-03] MEDS: POLYETHYLENE GLYCOL 17 GM PKG PO SCH (09:32)
[2016-12-03] MEDS: RESP: ALBUTEROL 2.5 MG/IPRATROPIUM 0.5 MG NEB (PRN) NEB (10:33)
[2016-12-03 11:11] LABS: BLOOD, URINE NEG (NEG); GLUCOSE,URINE NEG (NEG); KETONE, URINE NEG (NEG); NITRITE,URINE NEG (NEG)
[2016-12-03 11:17] LABS: METHOD OF COLLECTION CLEAN CATCH; URINE COLOR YELLOW (YELLW/STRAW)
[2016-12-03 11:21] LABS: COMMENT (UR) CULT NOT INDICATED; CULTURE IF INDICATED CULT NOT INDICATED; SQUAMOUS EPITHELIAL CELL URINE 0-5 /hpf (0-5)
[2016-12-03] MEDS ORDERED: MICAFUNGIN INJ 150 MG in SODIUM CHLORIDE 0.9% INJ 100 ML IV ONE (17:00)
--- NOTE | 2016-12-09 07:48 | MD ---
cc: MICHAEL WOODWARD MD ADMISSION DATE: 10/02/2016 DISCHARGE DATE: 12/03/2016 Okay to discharge the patient home with home health care. Condition at the time of discharge: Satisfactory. Activity: As tolerated. Diet: Cardiac diet. ALLERGIES 1. DEMEROL. 2. TETRACYCLINE. DISCHARGE MEDICATIONS 1. Eliquis 2.5 mg p.o. daily. 2. Hydrocodone/acetaminophen 5/325, two tablets q.4h. p.r.n. pain. 3. Tramadol 100 mg p.o. q.8h. 4. Atorvastatin 20 mg p.o. h.s. 5. Symbicort two puff inhalation q.12h. 6. Diltiazem 360 mg p.o. daily. 7. Fluconazole 400 mg p.o. daily. 8. DuoNeb nebulization q.i.d. 9. Levalbuterol 1.25 mg twice a day. 10.Lorazepam 0.5 mg b.i.d. 11.Singulair 10 mg p.o. daily. 12.Protonix 40 mg p.o. daily. 13.Potassium chloride 10 mEq q.12h. 14.Prednisone 10 mg p.o. daily. 15.Promethazine/codeine 5 mL q.4h. 16.Carafate one gram p.o. t.i.d. 17.Tramadol 100 mg p.o. q.8h. Medicine discontinued is Coumadin. ADMITTING DIAGNOSIS 1. Shortness of breath secondary to severe asthma exacerbation and COPD exacerbation. 2. Very severe asthma. 3. Right hip prosthetic joint fungal infection. The patient fell down in the bathroom during her hospital stay and had surgery done again on the right hip. 4. Depression. 5. GERD. 6. Severe anxiety. 7. Acute on chronic right hip pain. 8. Status post upper endoscopy 11/14/2016. 9. Distal esophagitis. 10.History of pulmonary embolism and right lower extremity DVT. 11.Constipation. 12.Anemia. HOSPITAL COURSE This is a very pleasant 51-year very unfortunate male with multiple medical problems and multiple hospitalization; most of the time he stays in the hospital. He came to the ER with shortness of breath. He was intubated and stayed in the ICU with severe asthmatic exacerbation. The patient was given DuoNeb nebulization and Solu-Medrol IV. The patient was also given empiric antibiotics during the hospital stay. Infectious Disease saw the patient. The patient also right hip surgery done. He fell down during the hospital stay and he had another surgery done during this hospital admission. Dr. Shaan Lindo or orthopedic surgery saw the patient during the hospital stay. Infectious Disease saw the patient during the hospital stay and Dr. Mary Hernandez from a pulmonary standpoint saw the patient during the hospital stay. Dr. Marizol Morris saw the patient from an infectious disease standpoint and gave recommendations. Dr. Street saw the patient from the GI standpoint and gave recommendations. The patient had a waxing and waning course during the hospital stay. The patient had a very prolonged and protracted course during the hospital stay. The patient had a lower extremity ultrasound done that showed hypoechoic areas subjacent and anterior to the right hip incision line. Findings are nonspecific but likely represent resolving hematoma/seroma. Abscess cannot be completely excluded. The patient had a chest x-ray done which showed no acute cardiopulmonary abnormality identified. The patient had a hip aspiration done because of the hematoma. Pelvis CT was done which showed a right total hip prosthesis in place, Adjacent and inferior to this is a somewhat crescentic to ovoid [address] of the abdomen and pelvis was done and showed wall thickening along the lateral sacrum. Colonoscopy may be warranted. No acute inflammatory process. No renal calculi or hydronephrosis. Copious amount of stool throughout the large bowel. Gallbladder ultrasound was done and showed the liver mildly fatty infiltrated, trace sludge in the gallbladder, otherwise within normal limits. Hip x-ray was done and showed postsurgical changes. Another hip x-ray was done on November 17 and showed right bipolar hip arthroplasty, comminuted fracture of the proximal femur that included the bone around the femoral component. Chest x-ray done on 11/26/2016 showed no acute cardiopulmonary process identified. Right-sided PICC line with tip in good position in the superior vena cava. CBC done showed hemoglobin was 8.7, hematocrit 27.9, platelet count 491. The patient had mild hypokalemia during the hospital stay which resolved. The patient also had high LFTs during the hospital stay which were monitored. Urinalysis was done which was normal. Anti-smooth muscle antibody was negative. JOHAN screen negative. IgA level was 19 which is low. No serological evidence of celiac disease was present. IgA level was low. Blood culture was done and showed negative blood culture. No acid fast bacilli was seen. No fungal element was seen. Please see the further details in the medical record. Michael Woodward MD EA/BLAYNE /1:43 PM /7:21 AM
== END 2016-12-03 18:21 | disposition home health service (06) | DRG 982 ==
LOC: NEPE 10:32 → NEDA 13:19 → NEPHCDU 17:18 → OBSVTOIN 10-02 14:27 → N06A 10-03 17:10 → PH3A 11-05 19:57 → PH5A 11-08 14:03 → N06B 11-17 20:11 → N06A 11-21 15:43 → PH5A 11-25 20:46 → PH3A 11-26 18:47
PROVIDERS: ADMIT Family Medicine; ATTEND Family Medicine
PROC: 0S993ZX Drainage of Right Hip Joint, Percutaneous Approach, Diagnostic (ICD-10-PCS; 2016-10-01)
PROC: 0DB98ZX Excision of Duodenum, Via Natural or Artificial Opening Endoscopic, Diagnostic (ICD-10-PCS; 2016-11-14)
PROC: 0DB68ZX Excision of Stomach, Via Natural or Artificial Opening Endoscopic, Diagnostic (ICD-10-PCS; 2016-11-14)
PROC: 0DB38ZX Excision of Lower Esophagus, Via Natural or Artificial Opening Endoscopic, Diagnostic (ICD-10-PCS; 2016-11-14)
PROC: 0DBM8ZX Excision of Descending Colon, Via Natural or Artificial Opening Endoscopic, Diagnostic (ICD-10-PCS; 2016-11-14)
PROC: 30233K1 Transfusion of Nonautologous Frozen Plasma into Peripheral Vein, Percutaneous Approach (ICD-10-PCS; 2016-11-18)
PROC: 30233N1 Transfusion of Nonautologous Red Blood Cells into Peripheral Vein, Percutaneous Approach (ICD-10-PCS; 2016-11-19)
PROC: 0SR904A Replacement of Right Hip Joint with Ceramic on Polyethylene Synthetic Substitute, Uncemented, Open Approach (ICD-10-PCS; 2016-11-20)
PROC: 0SP90JZ Removal of Synthetic Substitute from Right Hip Joint, Open Approach (ICD-10-PCS; 2016-11-20)
PROC: 0QS604Z Reposition Right Upper Femur with Internal Fixation Device, Open Approach (ICD-10-PCS; principal; 2016-11-20 16:14)
PROC: 02HV33Z Insertion of Infusion Device into Superior Vena Cava, Percutaneous Approach (ICD-10-PCS; 2016-11-26)
DX: J45.51 Severe persistent asthma with (acute) exacerbation (principal); J44.1 Chronic obstructive pulmonary disease with (acute) exacerbation; S72.111A Displaced fracture of greater trochanter of right femur, initial encounter for closed fracture; S72.121A Displaced fracture of lesser trochanter of right femur, initial encounter for closed fracture; B37.89 Other sites of candidiasis; T84.51XA Infection and inflammatory reaction due to internal right hip prosthesis, initial encounter; K92.2 Gastrointestinal hemorrhage, unspecified; M97.01XA Periprosthetic fracture around internal prosthetic right hip joint, initial encounter; I10 Essential (primary) hypertension; R00.0 Tachycardia, unspecified; K57.30 Diverticulosis of large intestine without perforation or abscess without bleeding; K64.8 Other hemorrhoids; D12.4 Benign neoplasm of descending colon; F32.9 Major depressive disorder, single episode, unspecified; F41.9 Anxiety disorder, unspecified; E78.5 Hyperlipidemia, unspecified; K44.9 Diaphragmatic hernia without obstruction or gangrene; K29.70 Gastritis, unspecified, without bleeding; K21.0 Gastro-esophageal reflux disease with esophagitis; G89.29 Other chronic pain; M19.90 Unspecified osteoarthritis, unspecified site; D64.9 Anemia, unspecified; M81.0 Age-related osteoporosis without current pathological fracture; K64.4 Residual hemorrhoidal skin tags; R73.9 Hyperglycemia, unspecified; M25.561 Pain in right knee; E87.6 Hypokalemia; R04.0 Epistaxis; K59.00 Constipation, unspecified; Z79.01 Long term (current) use of anticoagulants; Z88.5 Allergy status to narcotic agent; Z86.711 Personal history of pulmonary embolism; Z86.718 Personal history of other venous thrombosis and embolism; Z87.01 Personal history of pneumonia (recurrent); W18.2XXA Fall in (into) shower or empty bathtub, initial encounter; Y93.E1 Activity, personal bathing and showering; Y92.231 Patient bathroom in hospital as the place of occurrence of the external cause; Z53.8 Procedure and treatment not carried out for other reasons; T38.0X5A Adverse effect of glucocorticoids and synthetic analogues, initial encounter; Y83.1 Surgical operation with implant of artificial internal device as the cause of abnormal reaction of the patient, or of later complication, without mention of misadventure at the time of the procedure
CPT/HCPCS: 20610; 36430; 36569; 71010; 71020; 72192; 72193; 73502; 73723; 74176; 76000; 76705; 76937; 77002; 80048; 80053; 80076; 81001; 82103; 82150; 82390; 82607; 82784; 82805; 82948; 83516; 83520; 83540; 83550; 83690; 83735; 83880; 84484; 85007; 85014; 85018; 85025; 85027; 85610; 85652; 85730; 86038; 86140; 86256; 86850; 86900; 86901; 86920; 86927; 87015; 87070; 87102; 87116; 87176; 87205; 87206; 88305; 88331; 89051; 93005; 93926; 94150; 94620; 94640; 94664; 96374; 96375; A9579; C1713; C1769; C1776; G0378; J0131; J0690; J1170; J1364; J1580; J1642; J1815; J1885; J1940; J2212; J2248; J2250; J2270; J2405; J2920; J2930; J3010; J3370; J3430; J3465; J3480; J7040; J7042; J7050; J7120; J7512; J7613; P9016; P9017; Q9967

== ENCOUNTER 2016-12-25 12:24 | Inpatient (IN) | payer BC ==
[~2016-12-25] VITALS: Ht 182.9 cm; Wt 101.3 kg
[2016-12-25] VITALS (13 sets, daily range): BP systolic 127–156; BP diastolic 80–95; PULSE 108–158; RESP 16–28; TEMP 97.5–98.3; O2SAT 96–99
[~2016-12-25 12:24] MED LIST changes: +APIX2.5T PO; -CEFT500T3 PO; -COUM2.5T PO; -ENOX100P SQ; +HYDR-3516 PO
[2016-12-25 12:40] LABS: MEAN CORPUSCULAR HGB CONC 29.3 % (32.0-36.0)
[2016-12-25] MEDS ORDERED: cefTRIAXone INJ 1,000 MG in SODIUM CHLORIDE 0.9% INJ 100 ML IV ONE (12:45)
[2016-12-25] MEDS ORDERED: SODIUM CHLORIDE 0.9% FLUSH 10 ML FLUSH IVF PRN (12:45)
[2016-12-25] MEDS ORDERED: methylPREDNISolone SOD SUCC 125 MG/2 ML VIAL IV ONE (12:45)
[2016-12-25] MEDS ORDERED: AZITHROMYCIN INJ 500 MG in SODIUM CHLOR 0.9% 250 ML INJ 250 ML IV ONE (12:45)
[2016-12-25] MEDS: RESP: ALBUTEROL 2.5 MG/IPRATROPIUM 0.5 MG NEB (SCH) INH ×3 (13:10→13:40)
[2016-12-25] MEDS ORDERED: SODIUM CHLOR 0.9% 1000 ML INJ 1,000 ML IV ONE ×3 (13:15→14:15)
--- NOTE | 2016-12-25 13:15 | PD ---
HPI Chief Complaint: Respiratory Distress Time Seen by Provider: 12:40 Travel History International Travel<30 days: No Contact w/Intl Traveler<30days: No Traveled to known affect area: No History of Present Illness HPI Patient comes to the emergency Department complaining of asthma exacerbation and shortness of breath that began yesterday. Patient has a history of similar has been with pneumonia, being intubated, and PEs over the past year. Per patient's symptoms began yesterday. Patient recently had a hip replacement surgery and found to have a subsequent fungal infection her . Patient is on IV medications for this. Denies any fevers, chest pain, nausea, vomiting or fevers, or headaches. Patient states he last used his nebulizer shortly prior to coming worse with minimal to no relief symptoms. Patient is on Eliquis for PE and DVT. PFSH Past Medical History Hx Anticoagulant Therapy: Yes (COUMADIN, LOVENOX) Arthritis: Yes Asthma: Yes Autoimmune Disease: No Blood Disorders: No Anxiety: Yes Depression: No Heart Rhythm Problems: Yes (TACHY) Cancer: No Cardiovascular Problems: Yes High Cholesterol: Yes Chemotherapy: No Chest Pain: Yes (DUE TO PE, PNEUMONIA) Congestive Heart Failure: No COPD: Yes Cerebrovascular Accident: No Diabetes: No Patient Takes Glucophage: No Diminished Hearing: No Deep Vein Thrombosis: Yes (DECEMBER 2015: RIGHT LEG WITH PULMONARY EMBOLISM) Endocrine: No Gastrointestinal Disorders: No GERD: Yes Genitourinary: No Headaches: No Hiatal Hernia: No Heparin Induced Thrombocytopen: No Hypertension: Yes (New HTN since last admit per pt/not documented) Immune Disorder: No Implanted Vascular Access Dvce: Yes Kidney Stones: No Musculoskeletal: Yes (HIP SURGERIES, ARTHRITIS) Neurologic: No Psychiatric: Yes Reproductive: No Respiratory: Yes Migraines: No Pneumonia: Yes (NOVEMBER 2015) Radiation Therapy: No Renal Failure: No Seizures: No Sickle Cell Disease: No Sleep Apnea: No Thyroid Disease: No Ulcer: No ?: Not Past Surgical History Abdominal Surgery: No AICD: No Appendectomy: Yes Arteriovenous Shunt: No Cardiac Surgery: No Endocrine Surgery: No Eye Surgery: No Genitourinary Surgery: Yes (apendectomy) Gynecologic Surgery: No Insulin Pump: No Joint Replacement: Yes (BILAT HIP REPLACEMENT) Neurologic Surgery: No Oral Surgery: Yes (TONSILLECTOMY) Pacemaker: No Thoracic Surgery: No Tonsillectomy: Yes Other Surgery: Yes (HIPS, APPENDIX, TONSILS) Social History Alcohol Use: No Tobacco Use: No Substance Use: No Allergies-Medications (Allergen,Severity, Reaction): Coded Allergies: Tetracycline (Verified Allergy, Severe, throat swells, 12/25/16) Demerol (Verified Allergy, Intermediate, hallucinations, 12/25/16) Reported Meds & Prescriptions Reported Meds & Active Scripts Active Eliquis (Apixaban) 2.5 Mg Tab 2.5 Mg PO BID Hydrocodone-Acetaminophen 5-325 mg Tab 2 Tab PO Q4H PRN Ultram (Tramadol HCl) 50 Mg Tab 100 Mg PO Q8H PRN Ativan (Lorazepam) 0.5 Mg Tab 0.5 Mg PO BID Klor-Con 10 (Potassium Chloride) 10 Meq Tab 10 Meq PO Q12HR Prednisone 10 Mg Tab 10 Mg PO DAILY Ultram (Tramadol HCl) 50 Mg Tab 100 Mg PO Q8H PRN Promethazine-Codeine Liq 6.25-10 Mg/5 Ml Syrp 5 Ml PO Q4H PRN Fluconazole 200 Mg Tab 400 Mg PO DAILY Reported Lortab (Hydrocodone-Acetaminophen) 7.5-325 Mg Tab 1 Tab PO TID PRN Protonix (Pantoprazole Sodium) 40 Mg Tab 40 Mg PO DAILY Duoneb (Ipratropium-Albuterol Neb) 0.5-2.5 Mg/3 Ml Neb 1 Nebule NEB QID PRN Diltiazem CD 24 HR 360 Mg Capcr 360 Mg PO DAILY Symbicort Inh (Budesonide/Formoterol Fumarate) 160-4.5 Mcg/Act Aero 2 Puff INH Q12HR Singulair (Montelukast Sodium) 10 Mg Tab 10 Mg PO HS Lipitor (Atorvastatin Calcium) 20 Mg Tab 20 Mg PO HS Carafate (Sucralfate) 1 Gm Tab 1 Gm PO TID On empty stomach Levalbuterol Neb (Levalbuterol HCl) 1.25 Mg/3 Ml Neb 1.25 Mg NEB BID PRN Review of Systems Except as stated in HPI: all other systems reviewed are Neg Physical Exam Narrative GENERAL: Well-developed, overly nourished, in no acute distress, and non-ill appearing. SKIN: Focused skin assessment warm and dry. HEAD: Atraumatic. Normocephalic. EYES: Pupils equal and round. EOMI. No scleral icterus. No injection or drainage. ENT: No nasal bleeding or discharge. Mucous membranes pink and moist. NECK: Trachea midline. Supple. No nuclear rigidity. CARDIOVASCULAR: Regular rate and rhythm. No murmur appreciated. RESPIRATORY: Accessory muscle use. No respiratory distress. Tightness and scant wheezing throughout chest. MUSCULOSKELETAL: No obvious deformities. No clubbing. No cyanosis. No edema. Full range of motion. NEUROLOGICAL: Awake and alert. No obvious cranial nerve deficits. Motor grossly within normal limits. Normal speech. PSYCHIATRIC: Appropriate mood and affect; insight and judgment normal. Data Data Last Documented VS Vital Signs Date Time Temp Pulse Resp B/P Pulse Ox O2 Delivery O2 Flow Rate FiO2 12/25/16 13:10 96 40 12/25/16 12:50 98.2 132 27 156/87 Nasal Cannula 4 Orders Complete Blood Count With Diff (12/25/16 12:38) Basic Metabolic Panel (Bmp) (12/25/16 12:38) Act Partial Throm Time (Ptt) (12/25/16 12:38) Prothrombin Time / Inr (Pt) (12/25/16 12:38) Ckmb (Isoenzyme) Profile (12/25/16 12:38) Troponin I (12/25/16 12:38) Arterial Blood Gas (Abg) (12/25/16 12:38) Iv Access Insert/Monitor (12/25/16 12:38) Electrocardiogram (12/25/16 12:38) Ecg Monitoring (12/25/16 12:38) Oximetry (12/25/16 12:38) Oxygen Administration (12/25/16 12:38) Chest, Single Ap (12/25/16 12:38) Sodium Chloride 0.9% Flush (Ns Flush) (12/25/16 12:45) Albuterol-Ipratropium Neb (Duoneb Neb) (12/25/16 12:45) Resp Bipap / Cpap Non Invas Vt (12/25/16 12:38) Lactic Acid Sepsis Protocol (12/25/16 12:40) Blood Culture (12/25/16 12:40) Methylprednisolone So Succ Inj (Solumedr (12/25/16 12:45) Ceftriaxone Inj (Rocephin Inj) (12/25/16 12:45) Azithromycin Inj (Zithromax Inj) (12/25/16 12:45) B-Type Natriuretic Peptide (12/25/16 12:46) Magnesium (Mg) (12/25/16 12:46) Sodium Chlor 0.9% 1000 Ml Inj (Ns 1000 M (12/25/16 13:15) Sodium Chlor 0.9% 1000 Ml Inj (Ns 1000 M (12/25/16 14:15) Sodium Chlor 0.9% 1000 Ml Inj (Ns 1000 M (12/25/16 14:15) Ct Pulmonary Angiogram (12/25/16 ) Vital Signs (Adult) Q4H (12/25/16 14:38) Sodium Chloride 0.9% Flush (Ns Flush) (12/25/16 14:45) Sodium Chloride 0.9% Flush (Ns Flush) (12/25/16 21:00) Naloxone Inj (Narcan Inj) (12/25/16 14:45) Admit Order (Ed Use Only) (12/25/16 14:40) Labs Laboratory Tests Test 12/25/16 12/25/16 12:50 12:54 White Blood Count 14.3 TH/MM3 Red Blood Count 4.63 MIL/MM3 Hemoglobin 10.0 GM/DL Hematocrit 34.1 % Mean Corpuscular Volume 73.7 FL Mean Corpuscular Hemoglobin 21.6 PG Mean Corpuscular Hemoglobin 29.3 % Concent Red Cell Distribution Width 23.7 % Platelet Count 595 TH/MM3 Mean Platelet Volume 7.0 FL Neutrophils (%) (Auto) 81.8 % Lymphocytes (%) (Auto) 10.8 % Monocytes (%) (Auto) 5.2 % Eosinophils (%) (Auto) 1.6 % Basophils (%) (Auto) 0.6 % Neutrophils # (Auto) 11.7 TH/MM3 Lymphocytes # (Auto) 1.5 TH/MM3 Monocytes # (Auto) 0.7 TH/MM3 Eosinophils # (Auto) 0.2 TH/MM3 Basophils # (Auto) 0.1 TH/MM3 CBC Comment AUTO DIFF Differential Total Cells 100 Counted Neutrophils % (Manual) 66 % Band Neutrophils % 4 % Lymphocytes % 17 % Monocytes % 9 % Eosinophils % 1 % Neutrophils # (Manual) 10.4 TH/MM3 Myelocytes 3 % Differential Comment FINAL DIFF MANUAL Platelet Estimate HIGH Platelet Morphology Comment NORMAL Polychromasia 2.2 % Tear Drop Cells 1+ Ovalocytes 1+ Prothrombin Time 10.5 SEC Prothromb Time International 1.0 RATIO Ratio Activated Partial 23.8 SEC Thromboplast Time Sodium Level 139 MEQ/L Potassium Level 3.6 MEQ/L Chloride Level 105 MEQ/L Carbon Dioxide Level 21.1 MEQ/L Anion Gap 13 MEQ/L Blood Urea Nitrogen 10 MG/DL Creatinine 0.86 MG/DL Estimat Glomerular Filtration 93 ML/MIN Rate Random Glucose 147 MG/DL Lactic Acid Level 4.8 mmol/L Calcium Level 10.0 MG/DL Magnesium Level 2.0 MG/DL Total Creatine Kinase 67 U/L Troponin I LESS THAN 0.02 NG/ML B-Type Natriuretic Peptide 7 PG/ML Blood Gas Puncture Site RT RADIAL Blood Gas Patient Temperature 98.6 Blood Gas HCO3 21 mmol/L Blood Gas Base Excess -2.5 mmol/L Blood Gas Oxygen Saturation 96 % Arterial Blood pH 7.42 Arterial Blood Partial 33 mmHg Pressure CO2 Arterial Blood Partial 115 mmHG Pressure O2 Arterial Blood Oxygen Content 17.7 Vol % Arterial Blood 1.6 % Carboxyhemoglobin Arterial Blood Methemoglobin 0.6 % Blood Gas Hemoglobin 13.0 G/DL Oxygen Delivery Device NASAL CANNULA Blood Gas Liter Flow 2 L/M MDM Medical Decision Making Medical Screen Exam Complete: Yes Emergency Medical Condition: Yes Interpretation(s) EKG reviewed by Dr. Ingram, shows sinus tachycardia with ventricular rate of 142. No STEMI. Differential Diagnosis COPD exacerbation, ARDS, hypoxia, hypercapnia, pneumonia, other Narrative Course 1325 patient resists reports improvement breathing on BiPAP. Patient was seen and examined. Initial laboratory and radiological studies obtained reviewed. Patient was started on BiPAP. Patient started on IV fluids , IV antibiotics, IV Solu-Medrol. Patient showed some improvement of symptoms. Discussed patient with Dr. Ingram on evaluate the patient. Recommends checking CTA and admitting to medicine. CTA PE protocol was ordered. Dr. Ingram spoke with the admitting physician. Please see her documentation for the detail. Diagnosis Primary Impression: Sepsis Qualified Code: A41.9 - Sepsis, due to unspecified organism Additional Impression: Acute asthma exacerbation Qualified Code: J45.901 - Asthma with acute exacerbation, unspecified asthma severity Condition: Stable Lamonte Rose Dec 25, 2016 13:15
[2016-12-25 13:16] LABS: AUTOMATED NEUTROPHIL # 11.7 TH/MM3 (1.8-7.7); BASOPHIL # 0.1 TH/MM3 (0-0.2); BASOPHIL % 0.6 % (0.0-2.0); EOSINOPHIL # 0.2 TH/MM3 (0-0.4); EOSINOPHIL % 1.6 % (0.0-4.0); HEMATOCRIT 34.1 % (39.0-51.0); HEMO FLAGS AUTO DIFF; LYMPH % 10.8 % (9.0-44.0); LYMPHOCYTE # 1.5 TH/MM3 (1.0-4.8); MEAN CELL VOLUME 73.7 FL (80.0-100.0); MEAN CORPUSCULAR HEMOGLOBIN 21.6 PG (27.0-34.0); MONO % 5.2 % (0.0-8.0); NEUT % 81.8 % (16.0-70.0); PLATELET COUNT 595 TH/MM3 (150-450); RED BLOOD COUNT 4.63 MIL/MM3 (4.50-5.90); RED CELL DISTRIBUTION WIDTH 23.7 % (11.6-17.2); WHITE BLOOD COUNT 14.3 TH/MM3 (4.0-11.0)
[2016-12-25 13:25] LABS: BLOOD GAS BASE EXCESS -2.5 mmol/L (-2-2); BLOOD GAS CARBOXYHEMOGLOBIN 1.6 % (0-4); BLOOD GAS HCO3 21 mmol/L (22-26); BLOOD GAS METHEMOGLOBIN 0.6 % (0-2); BLOOD GAS O2 HGB SATURATION 96 % (90-100); BLOOD GAS OXYGEN CONTENT 17.7 Vol % (12.0-20.0); BLOOD GAS PCO2 33 mmHg (38-42); BLOOD GAS PO2 115 mmHG (61-120); TEMP CORR TO 98.6
[2016-12-25 13:26] LABS: APTT (PATIENT) 23.8 SEC (24.3-30.1); PROTHROMBIN TIME - PATIENT 10.5 SEC (9.8-11.6)
[2016-12-25 13:26] LABS: CRITICAL VALUE NO; DRAW SITE RT RADIAL; LITER FLOW 2 L/M; NUMBER OF ARTERIAL PUNCTURES 1; OXYGEN DEVICE NASAL CANNULA; STAT YES; ULNAR PULSE PRESENT
[2016-12-25 13:42] LABS: ANION GAP 13 MEQ/L (5-15); BICARBONATE 21.1 MEQ/L (21.0-32.0); BLOOD UREA NITROGEN 10 MG/DL (7-18); CHLORIDE 105 MEQ/L (98-107); GLOMERULAR FILTRATION RATE 93 ML/MIN (>89); POTASSIUM 3.6 MEQ/L (3.5-5.1); SODIUM (NA) 139 MEQ/L (136-145)
[2016-12-25 13:46] LABS: CREATINE KINASE 67 U/L (39-308)
[2016-12-25 13:50] LABS: BANDS 4 % (0-6); EOSINOPHILS 1 % (0-4); MYELOCYTES 3 % (0-0); NEUTROPHIL # MANUAL DIFF 10.4 TH/MM3 (1.8-7.7); OVALOCYTES 1+ (NORMAL); PLATELET ESTIMATE SMEAR HIGH (NORMAL); PLATELET MORPHOLOGY NORMAL (NORMAL); POLYCHROMASIA 2.2 % (0.0-1.9); POLYS (SEG NEUTROPHILS) 66 % (16-70); SCAN/DIFF FINAL DIFF MANUAL; WBC DIFF SAMPLE 100
[2016-12-25 13:51] LABS: TEARDROP RBCS 1+ (NORMAL)
--- NOTE | 2016-12-25 14:15 | RADRPT ---
EXAM DATE/TIME: 12/25/2016 13:27 [facility] COMPARISON: CHEST SINGLE AP, November 26, 2016, 13:33. INDICATIONS : Short of breath. MEDICAL HISTORY : Chronic obstructive pulmonary disease. asthma SURGICAL HISTORY : None. ENCOUNTER: Initial ACUITY: 1 day PAIN SCORE: 0/10 LOCATION: Bilateral chest FINDINGS: Right PICC line catheter tip projects over the mid superior vena cava. The lungs are symmetrically a erated. No focal decreasing crit both hemidiaphragms well delineated. The heart is normal size. CONCLUSION: No focal infiltrates seen. Adriel Thompson MD on December 25, 2016 at 14:12 Board Certified Radiologist. This report was verified electronically.
--- NOTE | 2016-12-25 14:30 | PD ---
Physical Exam Narrative I, Dr. Ingram, have reviewed the advance practice practitioner's documentation and am in agreement, met with the patient face to face, made the diagnosis, and the medical decision making was done by me. *My assessment and Findings: Asthma exacerbation vs. pneumonia vs. PE 51yo M with PMH of PE on eliquis, asthma/COPD here with sob today. Pt is wheezing with poor air entry on arrival. Pt was tachypneic and placed on BIPAP. Pt was recently admitted in 10/02/16-12/03/16 and had a prolong hospital course where he was intubated for severe asthma exacerbation and then fell in the hospital and had hip surgery. Pt was given methylprednisolone 125mg IV, duonebs x3 and ceftriaxone and azithromycin empirically. Pt also with tachycardia and EKG showed Sinus tachycardia at 142bpm. When I went to evaluate the pt, his heart rate had already came down to the 120s. Pt given NS IVF. Labs reviewed, leukocytosis at 14.3. H/H low at 10/34.1 which is better than baseline. Lactic acid 4.8, pt received NS IVF x1, and 2 more liters of NS has been ordered. Troponin negative. CXR showed no focal infiltrates. CT angio pending. Pt reevaluated at bedside. Pt feels better on the BIPAP and air movement has improved. Pt still with tightness in his chest. Will admit for severe sepsis and asthma exacerbation. Discussed with Dr. Santoyo and accepted to his service. CT angio positive for pulmonary embolism in right lower lobe with large filling defect extending into at least 3 segmental arteries. Pt is already on eliquis 2.5mg BID and has been compliant with it. Last took it this morning. Pt had CTA 12/10/2015 that showed left lower PE. Then CTA on 12/19/15 showed that prior PE no longer visualize. This is a new PE. Discussed with Dr. Santoyo and started pt on heparin. Data Data Last Documented VS Vital Signs Date Time Temp Pulse Resp B/P Pulse Ox O2 Delivery O2 Flow Rate FiO2 12/25/16 13:10 96 40 12/25/16 12:50 98.2 132 27 156/87 Nasal Cannula 4 Orders Complete Blood Count With Diff (12/25/16 12:38) Basic Metabolic Panel (Bmp) (12/25/16 12:38) Act Partial Throm Time (Ptt) (12/25/16 12:38) Prothrombin Time / Inr (Pt) (12/25/16 12:38) Ckmb (Isoenzyme) Profile (12/25/16 12:38) Troponin I (12/25/16 12:38) Arterial Blood Gas (Abg) (12/25/16 12:38) Iv Access Insert/Monitor (12/25/16 12:38) Electrocardiogram (12/25/16 12:38) Ecg Monitoring (12/25/16 12:38) Oximetry (12/25/16 12:38) Oxygen Administration (12/25/16 12:38) Chest, Single Ap (12/25/16 12:38) Sodium Chloride 0.9% Flush (Ns Flush) (12/25/16 12:45) Albuterol-Ipratropium Neb (Duoneb Neb) (12/25/16 12:45) Resp Bipap / Cpap Non Invas Vt (12/25/16 12:38) Lactic Acid Sepsis Protocol (12/25/16 12:40) Blood Culture (12/25/16 12:40) Methylprednisolone So Succ Inj (Solumedr (12/25/16 12:45) Ceftriaxone Inj (Rocephin Inj) (12/25/16 12:45) Azithromycin Inj (Zithromax Inj) (12/25/16 12:45) B-Type Natriuretic Peptide (12/25/16 12:46) Magnesium (Mg) (12/25/16 12:46) Sodium Chlor 0.9% 1000 Ml Inj (Ns 1000 M (12/25/16 13:15) Sodium Chlor 0.9% 1000 Ml Inj (Ns 1000 M (12/25/16 14:15) Sodium Chlor 0.9% 1000 Ml Inj (Ns 1000 M (12/25/16 14:15) Ct Pulmonary Angiogram (12/25/16 ) Vital Signs (Adult) Q4H (12/25/16 14:38) Sodium Chloride 0.9% Flush (Ns Flush) (12/25/16 14:45) Sodium Chloride 0.9% Flush (Ns Flush) (12/25/16 21:00) Naloxone Inj (Narcan Inj) (12/25/16 14:45) Admit Order (Ed Use Only) (12/25/16 14:40) Labs Laboratory Tests Test 12/25/16 12/25/16 12:50 12:54 White Blood Count 14.3 TH/MM3 Red Blood Count 4.63 MIL/MM3 Hemoglobin 10.0 GM/DL Hematocrit 34.1 % Mean Corpuscular Volume 73.7 FL Mean Corpuscular Hemoglobin 21.6 PG Mean Corpuscular Hemoglobin 29.3 % Concent Red Cell Distribution Width 23.7 % Platelet Count 595 TH/MM3 Mean Platelet Volume 7.0 FL Neutrophils (%) (Auto) 81.8 % Lymphocytes (%) (Auto) 10.8 % Monocytes (%) (Auto) 5.2 % Eosinophils (%) (Auto) 1.6 % Basophils (%) (Auto) 0.6 % Neutrophils # (Auto) 11.7 TH/MM3 Lymphocytes # (Auto) 1.5 TH/MM3 Monocytes # (Auto) 0.7 TH/MM3 Eosinophils # (Auto) 0.2 TH/MM3 Basophils # (Auto) 0.1 TH/MM3 CBC Comment AUTO DIFF Differential Total Cells 100 Counted Neutrophils % (Manual) 66 % Band Neutrophils % 4 % Lymphocytes % 17 % Monocytes % 9 % Eosinophils % 1 % Neutrophils # (Manual) 10.4 TH/MM3 Myelocytes 3 % Differential Comment FINAL DIFF MANUAL Platelet Estimate HIGH Platelet Morphology Comment NORMAL Polychromasia 2.2 % Tear Drop Cells 1+ Ovalocytes 1+ Prothrombin Time 10.5 SEC Prothromb Time International 1.0 RATIO Ratio Activated Partial 23.8 SEC Thromboplast Time Sodium Level 139 MEQ/L Potassium Level 3.6 MEQ/L Chloride Level 105 MEQ/L Carbon Dioxide Level 21.1 MEQ/L Anion Gap 13 MEQ/L Blood Urea Nitrogen 10 MG/DL Creatinine 0.86 MG/DL Estimat Glomerular Filtration 93 ML/MIN Rate Random Glucose 147 MG/DL Lactic Acid Level 4.8 mmol/L Calcium Level 10.0 MG/DL Magnesium Level 2.0 MG/DL Total Creatine Kinase 67 U/L Troponin I LESS THAN 0.02 NG/ML B-Type Natriuretic Peptide 7 PG/ML Blood Gas Puncture Site RT RADIAL Blood Gas Patient Temperature 98.6 Blood Gas HCO3 21 mmol/L Blood Gas Base Excess -2.5 mmol/L Blood Gas Oxygen Saturation 96 % Arterial Blood pH 7.42 Arterial Blood Partial 33 mmHg Pressure CO2 Arterial Blood Partial 115 mmHG Pressure O2 Arterial Blood Oxygen Content 17.7 Vol % Arterial Blood 1.6 % Carboxyhemoglobin Arterial Blood Methemoglobin 0.6 % Blood Gas Hemoglobin 13.0 G/DL Oxygen Delivery Device NASAL CANNULA Blood Gas Liter Flow 2 L/M MDM Supervised Visit with MELVINA: Yes Interpretation(s) EKG: Sinus tachycardia at 142bpm. Normal axis. No ST segment elevation or depression. Critical Care Narrative Aggregate critical care time was 55 minutes. Time to perform other separately billable procedures was not included in the critical care time. My time did not include minutes spent treating any other patients simultaneously or on activities that did not directly contribute to the patient's treatment. The services I provided to this patient were to treat and/or prevent clinically significant deterioration that could result in: cardiovascular collapse or . I provided critical care services requiring my management, as noted below: Chart data review, documentation time, medication orders and management, vital sign assessments/reviewing monitor data, ordering and reviewing lab tests, ordering and interpreting/reviewing x-rays and diagnostic studies, care of the patient and discussion of the patient with the admitting physicians. HemaPrompt Test Point of Care Internal Pos. & Neg. Controls: Passed Fecal Specimen Occult Blood: Negative Diagnosis Primary Impression: Pulmonary embolism Qualified Code: I26.99 - Other pulmonary embolism without acute cor pulmonale , unspecified chronicity Additional Impression: Severe sepsis Admitting Information Admitting Physician Requests: Lesley Parker DO Dec 25, 2016 14:30
[2016-12-25] MEDS ORDERED: SODIUM CHLORIDE 0.9% FLUSH 10 ML FLUSH IV FLUSH PRN ×2 (14:45)
[2016-12-25] MEDS: DOCUSATE SODIUM 100 MG CAP PO SCH (14:45)
[2016-12-25] MEDS ORDERED: ONDANSETRON HCL 4 MG/2 ML VIAL IVP PRN (14:45)
[2016-12-25] MEDS ORDERED: NALOXONE HCL 0.4 MG/ML AMP IV PRN ×2 (14:45)
[2016-12-25 15:01] LABS: LACTIC ACID GHOST NOT REPORTABLE
[2016-12-25] MEDS ORDERED: IOHEXOL 350 MG/ML 10 ML VIAL (for RAD DIAG) IV ONE (15:11)
--- NOTE | 2016-12-25 15:18 | RADRPT ---
EXAM DATE/TIME: 12/25/2016 14:45 [facility] COMPARISON: CT PULMONARY ANGIOGRAM, August 29, 2016, 16:50. INDICATIONS : Dyspnea, history of pulmonary embolism. IV CONTRAST: 74 cc Omnipaque 350 (iohexol) IV RADIATION DOSE: 18.03 CTDIvol (mGy) MEDICAL HISTORY : Cardiovascular disease. Chronic obstructive pulmonary disease. SURGICAL HISTORY : Appendectomy. Bilateral hip surgery ENCOUNTER: Initial ACUITY: 2 days PAIN SCALE: 0/10 LOCATION: chest TECHNIQUE: Volumetric scanning of the chest was performed using a pulmonary embolism protocol MIP images were re constructed. Using automated exposure control and adjustment of the mA and/or kV according to patien t size, radiation dose was kept as low as reasonably achievable to obtain optimal diagnostic quality images. FINDINGS: PULMONARY ARTERIES: There is a prominent filling defect in the right interlobar artery which extends into at least 3 basa l segmental arteries. No filling defects in the main, left or right pulmonary artery or in the subse gmental vessels on the left side. LUNGS: There is no consolidation or pneumothorax . No concerning pulmonary nodule is visualized. PLEURAE: There is no pleural thickening or pleural effusion. MEDIASTINUM: There is good visualization of the great vessels of the middle mediastinum. No evidence of mediastin al or hilar adenopathy/mass. Coronary artery calcifications. CONCLUSION: Positive for pulmonary embolism in the right lower lobe with a large filling defect extending into at least 3 segmental arteries. No evidence of pleural effusion. Adriel Thompson MD on December 25, 2016 at 15:13 Board Certified Radiologist. This report was verified electronically.
[2016-12-25] MEDS ORDERED: RESP: ALBUTEROL 2.5 MG/IPRATROPIUM 0.5 MG NEB (SCH) NEB (16:00)
[2016-12-25] MEDS ORDERED: HEPARIN SODIUM - IV 10,000 UNITS/10 ML VIAL IV ONE (16:00)
[2016-12-25] MEDS ORDERED: [UNRECOGNIZED DRUG - CODE] IV (16:23)
[2016-12-25] MEDS ORDERED: PRIL20CA9 PO (16:23)
[2016-12-25] MEDS ORDERED: [UNRECOGNIZED DRUG - CODE] PO (16:23)
[2016-12-25] MEDS: HEPARIN-D5W INJ 250 ML IV SCH (16:45)
[2016-12-25 16:46] LABS: CREATINE KINASE 52 U/L (39-308)
--- NOTE | 2016-12-25 18:37 | MH ---
cc: JARED BERG MD DATE OF ADMISSION 12/25/2016 DATE OF 04/25/1955 No travel in the last 30 days. CHIEF COMPLAINT Shortness of breath and cough. HISTORY OF PRESENT ILLNESS This is a pleasant 51-year-old white male who was in his usual state of health up until the past couple of days. The patient started complaining of shortness of breath which waxed and waned initially. The symptoms continued to worsen. The patient does is positive for cough. Active shortness of breath. He has acute expiratory wheezes with his shortness of breath. Sinus tachycardia. The patient denies chest pain. No nausea or vomiting. No fevers. No headaches. No seasonal allergies to his knowledge. The only other changes the patient has made in the last couple of days is that he has tried to sleep in a regular bed on his wedge and pillow rather than sleeping in a chair, in a reclining chair that keeps his head elevated and can help him stand if he becomes short of breath during the night. The patient states that he did not rest well and noted shortness of breath all during the night but wanted to give it a try if at all possible. The patient is recently status post a right hip replacement. He is touch down weightbearing on his right leg and has a trace of pedal edema. The patient does have a significant history of asthma and several long hospital stays for his COPD. PAST MEDICAL HISTORY Includes: 1. Arthritis. 2. Asthma. 3. COPD. 4. Anxiety. 5. Tachycardic rhythms. 6. Cardiovascular disease. 7. Hyperlipidemia. 8. Currently the patient has been on Eliquis but before that he took Coumadin. 9. He had a previous pulmonary embolism with pneumonia. 10. Deep venous thrombosis right leg. 11. Gastroesophageal reflux disease. 12. Hypertension. 13. Osteoarthritis . 14. Pneumonia November of 2015. 15. Anxiety and depression. PAST SURGICAL HISTORY 1. Appendectomy. 2. Bilateral hip replacements. 3. Tonsillectomy. ALLERGIES DEMEROL AND TETRACYCLINE. MEDICATIONS Active: 1. Eliquis. 2. Hydrocodone. 3. Ultram. 4. Ativan. 5. Klor-Con. 6. Prednisone. 7. Promethazine with codeine. 8. Fluconazole. 9. Lortab. 10. Protonix. 11. DuoNeb. 12. Cardizem. 13. Symbicort. 14. Singulair. 15. Lipitor. 16. Carafate. 17. Albuterol nebulizer treatments. SOCIAL HISTORY The patient is . Currently lives at home with his . Denies any tobacco, alcohol or illicit drug use. FAMILY HISTORY NA. REVIEW OF SYSTEMS A twelve-point review was done. Positives initiated noted in the history of present illness which included acute shortness of breath, expiratory wheezes. Sinus tachycardia. Otherwise systems are unremarkable unless mentioned in the history of present illness. Vital signs temperature is 98.2, pulse labile between 132 and 108. Respiratory rate labile between 22 and 27. Blood pressure 156/87 and 133/90. O2 saturation 97% currently now he is on BiPAP with 40% oxygen. Initially in the ER he was placed on 2 liters and then 4 liters before the BiPAP. PHYSICAL EXAMINATION GENERAL: Well-developed, well-nourished white male looks to be his stated age resting on a stretcher. He is alert, cooperative, a fairly good historian but unable to do a lot of talking right now secondary to the BiPap and his shortness of breath. is assisting with his history. HEENT: Atraumatic, normocephalic. PERRL at 3. Mucous membranes are pink. NECK: Supple. CARDIOVASCULAR: S1-S2, tachycardic rhythm. Distant heart sounds secondary to the BiPAP and his expiratory wheezing. He has trace of ankle edema in his right lower leg. The left leg has no edema and pulses are intact bilaterally. LUNGS: Expiratory wheezes, inspiratory and expiratory wheezing with low volumes throughout his lung fair. He is using his accessory muscles to breathe. MUSCULOSKELETAL: No obvious deformities noted. He moves his extremities with purpose. NEUROLOGIC: He is awake, alert, anxious. Speech is clear but muffled secondary to the BiPAP. PSYCHIATRIC: Appropriate mood and affect. Judgment is normal. DIAGNOSTIC DATA WBC count 14.3, RBC 4.63, hemoglobin 10, hematocrit 34.1, platelet count of 595. Neutrophil percentage auto 81.8. Monocytes percentage 9.9. Neutrophils manual is 10.4. Myelocytes 3. Platelet estimate is high. Morphology is normal. Tear drop cells 1+. ovalocytes 1+. PT INR is 1. Chemistries lactic acid 4.8, magnesium 2.0. BNP 7. Troponin less than 0.02. Total creatine kinase 52. Repeat lactic acid approximately 3 to 3-1/2 hours later is 3.4. IMAGING A chest x-ray showed no focal infiltrate. CT angiography shows positive for pulmonary embolism in the right lower lobe with a large filling defect extending into at least three segmental arteries. No evidence of pleural effusions. ASSESSMENT AND PLAN 1. Lactic acid sepsis, severe, with leukocytosis, right lower lobe pulmonary embolism with large filling defect extending into three segmental arteries. 2. Acute asthma exacerbation. 3. Acute hypercapnic respiratory failure. 4. He is status post right hip arthroplasty. 5. Tachycardia acute onset. 6. Hyperlipidemia. 7. Hypertension. Our plan is to admit inpatient status. In the emergency room the patient was given Rocephin times one and azithromycin IV times one. Initial labs were drawn for his diagnostic plan of care. ECG monitoring and continuous oxygen was initially started but was unable to tolerate secondary to his shortness of breath. The patient was placed on BiPAP 40% and is being monitored which includes his tachypneic respirations. The patient had gentle hydration. He is inpatient certification, inpatient admit. Sequential compression devices for deep venous thrombosis prophylaxis. Bowel regimen with stool softeners. We will monitor labs in the morning. We will consult cardiology for their expert opinion. Place him on a heparin drip. We will reconcile his medications. He will currently be on Rocephin and azithromycin for his antibiotic coverage. Please note that in the ER he received one dose of Solu-Medrol 125 and he will be maintained on a q.6h dose for now. DuoNeb four times daily which will be increased to q.4h until the patient's respirations are eupneic. Consult respiratory for their expert opinion to help monitor saturations greater than 92%. This patient is full code, full aggressive care. His condition is serious and we will monitor. Dictated by: ROBERTA Martines MD LUIS Mejía/DEREK /5:01 PM /5:28 PM This is a 52-year-old male who was seen by the undersigned today in the emergency department room E 53. He presented with sepsis and COPD exacerbation. He also has chest pressure. He has respiratory failure. He was put on BiPAP. He is being admitted for IV antibiotics, IV steroids and nebulizer treatment. He also has chest pressure. Hand [employer]i Thermal Cutter is consulted. His chili powder mixer is also consulted. The case was discussed with emergency physician and also with the patient's . Condition is critical MTDD
[2016-12-25] MEDS: RESP: ALBUTEROL 2.5 MG/IPRATROPIUM 0.5 MG NEB (SCH) NEB (19:55)
[2016-12-25] MEDS ORDERED: SODIUM CHLORIDE 0.9% FLUSH 10 ML FLUSH IV FLUSH SCH ×2 (21:00)
[2016-12-25 21:05] LABS: MEAN CORPUSCULAR HGB CONC 29.8 % (32.0-36.0)
[2016-12-25 21:18] LABS: HEMATOCRIT 29.6 % (39.0-51.0); MEAN CELL VOLUME 74.2 FL (80.0-100.0); MEAN CORPUSCULAR HEMOGLOBIN 22.5 PG (27.0-34.0); MEAN CORPUSCULAR HGB CONC 30.3 % (32.0-36.0); PLATELET COUNT 513 TH/MM3 (150-450); RED BLOOD COUNT 3.98 MIL/MM3 (4.50-5.90); RED CELL DISTRIBUTION WIDTH 22.8 % (11.6-17.2); WHITE BLOOD COUNT 9.5 TH/MM3 (4.0-11.0)
[2016-12-25 21:21] LABS: REVIEW FLAG FINAL
[2016-12-25 21:46] LABS: CREATINE KINASE 57 U/L (39-308)
[2016-12-25] MEDS ORDERED: HEPARIN SODIUM - IV 10,000 UNITS/10 ML VIAL IV PRN ×2 (22:00)
[2016-12-25] MEDS ORDERED: SODIUM CHLOR 0.9% 1000 ML INJ 1,000 ML IV SCH (22:15)
--- NOTE | 2016-12-25 22:27 | MB ---
cc: CHIP DAMON DATE OF CONSULTATION 12/25/2016 HISTORY Mr. Link is a 51-year-old white male with a history of recent right hip fracture. Over the last several days he has developed shortness of breath, cough. He presented to the emergency room and was diagnosed with right lower lobe pulmonary embolism. Started on IV heparin. PAST MEDICAL HISTORY Positive for: 1. Right leg DVT. 2. Pulmonary embolism. 3. Pneumonia. 4. Gastroesophageal reflux disease. 5. Hypertension. 6. Osteoarthritis. 7. Anxiety and depression. 8. Coronary artery disease. 9. Dyslipidemia. 10. Tachycardia. 11. Asthma. 12. Chronic obstructive pulmonary disease. 13. Arthritis. 14. History of appendectomy. 15. Bilateral hip replacements. 16. Tonsillectomy. MEDICATIONS Include: 1. Albuterol. 2. Carafate. 3. Lipitor. 4. Singulair. 5. Symbicort. 6. Cardizem. 7. DuoNeb. 8. Protonix. 9. Lortab. 10. Ipratropium. 11. Promethazine with codeine. 12. Prednisone. 13. Klor-Con. 14. Ativan. 15. Ultram. 16. Hydrocodone. 17. Eliquis. ALLERGIES DEMEROL AND TETRACYCLINE. SOCIAL HISTORY The patient never smoked. He does not drink alcohol. He is . He lives with his . FAMILY HISTORY Negative for heart disease. REVIEW OF SYSTEMS Otherwise negative. PHYSICAL EXAMINATION VITAL SIGNS: Blood pressure 139/81, pulse 108 and regular. HEENT: Negative. 2+ carotid upstroke. No bruits. LUNGS: With a few bilateral wheezes. HEART: Regular with no murmur, gallop. ABDOMEN: Soft. No bruits. EXTREMITIES: Without edema. 1-2+ distal pulses. NEUROLOGICAL: Grossly nonfocal. EKG was reviewed and showed sinus tachycardia, normal axis and otherwise normal intervals. Mild nonspecific T wave changes. LABORATORY DATA Hemoglobin 10.0. Potassium 3.6. Creatinine 0.9. CK and troponin normal. BNP 7. DIAGNOSES 1. Acute pulmonary embolism. 2. Asthma / chronic obstructive pulmonary disease. 3. Acute respiratory failure. 4. Status post right hip arthroplasty. 5. Sinus tachycardia. 6. Hypertension. 7. Dyslipidemia. DISPOSITION Mr. Link presented with acute pulmonary embolism. He was started on IV heparin. He has been on Eliquis and likely rather immobile due to his recent hip fracture. I would consider switching Eliquis to Pradaxa 150 milligrams twice a day. Continuing Eliquis or starting warfarin can also be considered. Mr. Link will be monitored on telemetry. I will follow him for cardiology during his hospitalization. MD RACHEL Bravo/DEREK /6:49 PM /10:14 PM [email or web address]
[2016-12-25] MEDS: LORazepam 2 MG/ML VIAL IV PRN (22:29)
[2016-12-25] MEDS: SODIUM CHLORIDE IV SCH ×2 (22:30)
[2016-12-25] MEDS: MICAFUNGIN IV SCH ×2 (22:30)
[2016-12-25] MEDS: methylPREDNISolone SOD SUCC 125 MG/2 ML VIAL IV PUSH SCH (22:31)
[2016-12-25 23:15] LABS: APTT (PATIENT) 82.8 SEC (24.3-30.1); PROTHROMBIN TIME - PATIENT 11.5 SEC (9.8-11.6)
[2016-12-26] VITALS (31 sets, daily range): BP systolic 138–176; BP diastolic 89–99; PULSE 104–135; RESP 19–24; TEMP 97.6–98.5; O2SAT 97–100
[2016-12-26] MEDS: methylPREDNISolone SOD SUCC 125 MG/2 ML VIAL IV PUSH SCH ×4 (03:14→20:04)
[2016-12-26] MEDS: DOCUSATE SODIUM 100 MG CAP PO SCH ×2 (03:14→14:38)
[2016-12-26] MEDS: RESP: ALBUTEROL 2.5 MG/IPRATROPIUM 0.5 MG NEB (SCH) NEB ×7 (03:16→23:55)
[2016-12-26] MEDS: LORazepam 2 MG/ML VIAL IV PRN (05:13)
[2016-12-26 06:55] LABS: APTT (PATIENT) 75.6 SEC (24.3-30.1)
[2016-12-26 07:07] LABS: AUTOMATED NEUTROPHIL # 7.6 TH/MM3 (1.8-7.7); BASOPHIL % 0.2 % (0.0-2.0); HEMATOCRIT 26.8 % (39.0-51.0); LYMPHOCYTE # 0.8 TH/MM3 (1.0-4.8); MEAN CELL VOLUME 73.1 FL (80.0-100.0); MEAN CORPUSCULAR HEMOGLOBIN 21.8 PG (27.0-34.0); MONO % 1.1 % (0.0-8.0); NEUT % 89.7 % (16.0-70.0); PLATELET COUNT 484 TH/MM3 (150-450); RED BLOOD COUNT 3.66 MIL/MM3 (4.50-5.90); WHITE BLOOD COUNT 8.4 TH/MM3 (4.0-11.0)
[2016-12-26 07:12] LABS: HEMO FLAGS AUTO DIFF
[2016-12-26 07:13] LABS: BICARBONATE 24.1 MEQ/L (21.0-32.0); POTASSIUM 3.2 MEQ/L (3.5-5.1)
[2016-12-26] MEDS: HEPARIN-D5W INJ 250 ML IV SCH ×2 (07:30→23:50)
[2016-12-26 08:01] LABS: KERATOCYTES OCC (NORMAL); OVALOCYTES 1+ (NORMAL)
[2016-12-26 08:02] LABS: PLATELET ESTIMATE SMEAR HIGH (NORMAL); PLATELET MORPHOLOGY NORMAL (NORMAL); SCAN/DIFF AUTO DIFF CONFIRMED; TEARDROP RBCS 1+ (NORMAL)
[2016-12-26] MEDS ORDERED: DEXTROSE 50% IN WATER 50 ML VIAL(D50) IV PUSH PRN (08:15)
[2016-12-26] MEDS ORDERED: GLUCAGON 1 MG/ML VIAL OTHER PRN (08:15)
[2016-12-26] MEDS ORDERED: SODIUM CHLORIDE 0.9% FLUSH 10 ML FLUSH IVF PRN (08:15)
[2016-12-26] MEDS ORDERED: POTASSIUM CHLORIDE 25 MEQ EFFERVESCENT TAB PO ONE (08:15)
[2016-12-26] MEDS ORDERED: MAGNESIUM HYDROXIDE SUSP 30 ML CUP PO PRN (08:15)
--- NOTE | 2016-12-26 08:19 | HHI.PR ---
Vitals/Results Intake & Output 12/25/16 12/25/16 12/26/16 15:00 23:00 07:00 Intake Total 1557 ml Output Total 2360 ml Balance -803 ml Intake Oral 720 ml IV Total 837 ml Output Urine Total 2360 ml # Voids 6 Vital Signs Vital Signs Date Time Temp Pulse Resp B/P Pulse Ox O2 Delivery O2 Flow Rate FiO2 12/26/16 07:44 97 Nasal Cannula 2.00 12/26/16 07:30 98.5 113 22 150/99 100 12/26/16 06:00 108 12/26/16 05:00 109 12/26/16 04:00 109 12/26/16 03:19 99 40 12/26/16 03:00 97.8 109 19 138/94 99 12/26/16 03:00 104 12/26/16 02:32 112 12/26/16 01:00 108 12/26/16 00:00 110 12/25/16 23:00 120 12/25/16 23:00 97.5 116 22 148/92 99 12/25/16 22:00 118 12/25/16 21:00 124 12/25/16 20:00 110 12/25/16 20:00 97 40 12/25/16 19:00 99 Bi-Pap 40 12/25/16 19:00 125 12/25/16 19:00 98.3 113 24 127/80 99 12/25/16 18:03 108 139/81 98 BiPAP 12/25/16 16:00 108 16 133/90 97 BiPAP 12/25/16 15:11 98 40 12/25/16 13:30 114 22 131/81 98 BiPAP 12/25/16 13:10 96 40 12/25/16 12:50 98.2 132 27 156/87 97 Nasal Cannula 4 12/25/16 12:50 97 Nasal Cannula 4 12/25/16 12:50 127 27 97 Nasal Cannula 2 12/25/16 12:40 98.2 127 22 156/87 96 12/25/16 12:27 97.8 158 28 135/95 96 Room Air CBC/BMP: 12/26/16 0500 12/26/16 0500 Lab Results Laboratory Tests Test 4/19/17 4/19/17 4/19/17 4/19/17 12:50 12:54 15:30 21:11 White Blood Count 14.3 TH/MM3 9.5 TH/MM3 Red Blood Count 4.63 MIL/MM3 3.98 MIL/MM3 Hemoglobin 10.0 GM/DL 9.0 GM/DL Hematocrit 34.1 % 29.6 % Mean Corpuscular Volume 73.7 FL 74.2 FL Mean Corpuscular Hemoglobin 21.6 PG 22.5 PG Mean Corpuscular Hemoglobin 29.3 % 30.3 % Concent Red Cell Distribution Width 23.7 % 22.8 % Platelet Count 595 TH/MM3 513 TH/MM3 Mean Platelet Volume 7.0 FL 6.6 FL Neutrophils (%) (Auto) 81.8 % Lymphocytes (%) (Auto) 10.8 % Monocytes (%) (Auto) 5.2 % Eosinophils (%) (Auto) 1.6 % Basophils (%) (Auto) 0.6 % Neutrophils # (Auto) 11.7 TH/MM3 Lymphocytes # (Auto) 1.5 TH/MM3 Monocytes # (Auto) 0.7 TH/MM3 Eosinophils # (Auto) 0.2 TH/MM3 Basophils # (Auto) 0.1 TH/MM3 CBC Comment AUTO DIFF Differential Total Cells 100 Counted Neutrophils % (Manual) 66 % Band Neutrophils % 4 % Lymphocytes % 17 % Monocytes % 9 % Eosinophils % 1 % Neutrophils # (Manual) 10.4 TH/MM3 Myelocytes 3 % Differential Comment FINAL DIFF MANUAL Platelet Estimate HIGH Platelet Morphology Comment NORMAL Polychromasia 2.2 % Tear Drop Cells 1+ Ovalocytes 1+ Prothrombin Time 10.5 SEC Prothromb Time International 1.0 RATIO Ratio Activated Partial 23.8 SEC Thromboplast Time Sodium Level 139 MEQ/L Potassium Level 3.6 MEQ/L Chloride Level 105 MEQ/L Carbon Dioxide Level 21.1 MEQ/L Anion Gap 13 MEQ/L Blood Urea Nitrogen 10 MG/DL Creatinine 0.86 MG/DL Estimat Glomerular Filtration 93 ML/MIN Rate Random Glucose 147 MG/DL Lactic Acid Level 4.8 mmol/L 3.4 mmol/L Calcium Level 10.0 MG/DL Magnesium Level 2.0 MG/DL Total Creatine Kinase 67 U/L 52 U/L 57 U/L Troponin I LESS THAN 0.02 LESS THAN 0.02 LESS THAN 0.02 NG/ML NG/ML NG/ML B-Type Natriuretic Peptide 7 PG/ML Blood Gas Puncture Site RT RADIAL Blood Gas Patient Temperature 98.6 Blood Gas HCO3 21 mmol/L Blood Gas Base Excess -2.5 mmol/L Blood Gas Oxygen Saturation 96 % Arterial Blood pH 7.42 Arterial Blood Partial 33 mmHg Pressure CO2 Arterial Blood Partial 115 mmHG Pressure O2 Arterial Blood Oxygen Content 17.7 Vol % Arterial Blood 1.6 % Carboxyhemoglobin Arterial Blood Methemoglobin 0.6 % Blood Gas Hemoglobin 13.0 G/DL Oxygen Delivery Device NASAL CANNULA Blood Gas Liter Flow 2 L/M Test 12/25/16 12/26/16 22:30 05:00 Prothrombin Time 11.5 SEC Prothromb Time International 1.0 RATIO Ratio Activated Partial 82.8 SEC 75.6 SEC Thromboplast Time White Blood Count 8.4 TH/MM3 Red Blood Count 3.66 MIL/MM3 Hemoglobin 8.0 GM/DL Hematocrit 26.8 % Mean Corpuscular Volume 73.1 FL Mean Corpuscular Hemoglobin 21.8 PG Mean Corpuscular Hemoglobin 29.8 % Concent Red Cell Distribution Width 23.0 % Platelet Count 484 TH/MM3 Mean Platelet Volume 7.1 FL Neutrophils (%) (Auto) 89.7 % Lymphocytes (%) (Auto) 9.0 % Monocytes (%) (Auto) 1.1 % Eosinophils (%) (Auto) 0.0 % Basophils (%) (Auto) 0.2 % Neutrophils # (Auto) 7.6 TH/MM3 Lymphocytes # (Auto) 0.8 TH/MM3 Monocytes # (Auto) 0.1 TH/MM3 Eosinophils # (Auto) 0.0 TH/MM3 Basophils # (Auto) 0.0 TH/MM3 CBC Comment AUTO DIFF Differential Comment AUTO DIFF CONFIRMED Platelet Estimate HIGH Platelet Morphology Comment NORMAL Tear Drop Cells 1+ Ovalocytes 1+ Acanthocytes Keratocytes OCC Sodium Level 140 MEQ/L Potassium Level 3.2 MEQ/L Chloride Level 105 MEQ/L Carbon Dioxide Level 24.1 MEQ/L Anion Gap 11 MEQ/L Blood Urea Nitrogen 10 MG/DL Creatinine 0.86 MG/DL Estimat Glomerular Filtration 93 ML/MIN Rate Random Glucose 217 MG/DL Calcium Level 9.3 MG/DL Microbiology Microbiology 12/25/16 Aerobic Blood Culture, Received Pending 12/25/16 Anaerobic Blood Culture, Received Pending 12/25/16 Aerobic Blood Culture, Received Pending 12/25/16 Anaerobic Blood Culture, Received Pending Assessment/Plan Assessment/Plan ASSESSMENT AND PLAN 1. Lactic acid sepsis, severe, with leukocytosis, right lower lobe pulmonary embolism with large filling defect extending into three segmental arteries. 2. Acute asthma exacerbation. 3. Acute hypercapnic respiratory failure. 4. He is status post right hip arthroplasty. 5. Tachycardia acute onset. 6. Hyperlipidemia. 7. Hypertension. Our plan is to admit inpatient status. In the emergency room the patient was given Rocephin times one and azithromycin IV times one. Initial labs were drawn for his diagnostic plan of care. ECG monitoring and continuous oxygen was initially started but was unable to tolerate secondary to his shortness of breath. The patient was placed on BiPAP 40% and is being monitored which includes his tachypneic respirations. The patient had gentle hydration. He is inpatient certification, inpatient admit. Sequential compression devices for deep venous thrombosis prophylaxis. Bowel regimen with stool softeners. We will monitor labs in the morning. We will consult cardiology for their expert opinion. Place him on a heparin drip. We will reconcile his medications. He will currently be on Rocephin and azithromycin for his antibiotic coverage. Please note that in the ER he received one dose of Solu-Medrol 125 and he will be maintained on a q.6h dose for now. DuoNeb four times daily which will be increased to q.4h until the patient's respirations are eupneic. Consult respiratory for their expert opinion to help monitor saturations greater than 92%. This patient is full code, full aggressive care. His condition is serious and we will monitor. Myron Woodward MD Dec 26, 2016 08:19
--- NOTE | 2016-12-26 08:29 | HHI.PR ---
Subjective Subjective Remarks sob and wheezing on Bipap overnight, at this time on NC at 2L/NC "taking a break" c/o right leg pain and spasms inc. cough, no sputum no fever right sided chest pain ST on monitor Review of Systems Constitutional Constitutional Remarks 12 point ROS completed, negative except as noted above Vitals/Results Intake & Output 12/25/16 12/25/16 12/26/16 15:00 23:00 07:00 Intake Total 1557 ml Output Total 2360 ml Balance -803 ml Intake Oral 720 ml IV Total 837 ml Output Urine Total 2360 ml # Voids 6 Vital Signs Vital Signs Date Time Temp Pulse Resp B/P Pulse Ox O2 Delivery O2 Flow Rate FiO2 12/26/16 07:44 97 Nasal Cannula 2.00 12/26/16 07:30 98.5 113 22 150/99 100 12/26/16 06:00 108 12/26/16 05:00 109 12/26/16 04:00 109 12/26/16 03:19 99 40 12/26/16 03:00 97.8 109 19 138/94 99 12/26/16 03:00 104 12/26/16 02:32 112 12/26/16 01:00 108 12/26/16 00:00 110 12/25/16 23:00 120 12/25/16 23:00 97.5 116 22 148/92 99 12/25/16 22:00 118 12/25/16 21:00 124 12/25/16 20:00 110 12/25/16 20:00 97 40 12/25/16 19:00 99 Bi-Pap 40 12/25/16 19:00 125 12/25/16 19:00 98.3 113 24 127/80 99 12/25/16 18:03 108 139/81 98 BiPAP 12/25/16 16:00 108 16 133/90 97 BiPAP 12/25/16 15:11 98 40 12/25/16 13:30 114 22 131/81 98 BiPAP 12/25/16 13:10 96 40 12/25/16 12:50 98.2 132 27 156/87 97 Nasal Cannula 4 12/25/16 12:50 97 Nasal Cannula 4 12/25/16 12:50 127 27 97 Nasal Cannula 2 12/25/16 12:40 98.2 127 22 156/87 96 12/25/16 12:27 97.8 158 28 135/95 96 Room Air CBC/BMP: 12/26/16 0500 12/26/16 0500 Lab Results Laboratory Tests Test 12/25/16 12/25/16 12/25/16 12/25/16 12:50 12:54 15:30 21:11 White Blood Count 14.3 TH/MM3 9.5 TH/MM3 Red Blood Count 4.63 MIL/MM3 3.98 MIL/MM3 Hemoglobin 10.0 GM/DL 9.0 GM/DL Hematocrit 34.1 % 29.6 % Mean Corpuscular Volume 73.7 FL 74.2 FL Mean Corpuscular Hemoglobin 21.6 PG 22.5 PG Mean Corpuscular Hemoglobin 29.3 % 30.3 % Concent Red Cell Distribution Width 23.7 % 22.8 % Platelet Count 595 TH/MM3 513 TH/MM3 Mean Platelet Volume 7.0 FL 6.6 FL Neutrophils (%) (Auto) 81.8 % Lymphocytes (%) (Auto) 10.8 % Monocytes (%) (Auto) 5.2 % Eosinophils (%) (Auto) 1.6 % Basophils (%) (Auto) 0.6 % Neutrophils # (Auto) 11.7 TH/MM3 Lymphocytes # (Auto) 1.5 TH/MM3 Monocytes # (Auto) 0.7 TH/MM3 Eosinophils # (Auto) 0.2 TH/MM3 Basophils # (Auto) 0.1 TH/MM3 CBC Comment AUTO DIFF Differential Total Cells 100 Counted Neutrophils % (Manual) 66 % Band Neutrophils % 4 % Lymphocytes % 17 % Monocytes % 9 % Eosinophils % 1 % Neutrophils # (Manual) 10.4 TH/MM3 Myelocytes 3 % Differential Comment FINAL DIFF MANUAL Platelet Estimate HIGH Platelet Morphology Comment NORMAL Polychromasia 2.2 % Tear Drop Cells 1+ Ovalocytes 1+ Prothrombin Time 10.5 SEC Prothromb Time International 1.0 RATIO Ratio Activated Partial 23.8 SEC Thromboplast Time Sodium Level 139 MEQ/L Potassium Level 3.6 MEQ/L Chloride Level 105 MEQ/L Carbon Dioxide Level 21.1 MEQ/L Anion Gap 13 MEQ/L Blood Urea Nitrogen 10 MG/DL Creatinine 0.86 MG/DL Estimat Glomerular Filtration 93 ML/MIN Rate Random Glucose 147 MG/DL Lactic Acid Level 4.8 mmol/L 3.4 mmol/L Calcium Level 10.0 MG/DL Magnesium Level 2.0 MG/DL Total Creatine Kinase 67 U/L 52 U/L 57 U/L Troponin I LESS THAN 0.02 LESS THAN 0.02 LESS THAN 0.02 NG/ML NG/ML NG/ML B-Type Natriuretic Peptide 7 PG/ML Blood Gas Puncture Site RT RADIAL Blood Gas Patient Temperature 98.6 Blood Gas HCO3 21 mmol/L Blood Gas Base Excess -2.5 mmol/L Blood Gas Oxygen Saturation 96 % Arterial Blood pH 7.42 Arterial Blood Partial 33 mmHg Pressure CO2 Arterial Blood Partial 115 mmHG Pressure O2 Arterial Blood Oxygen Content 17.7 Vol % Arterial Blood 1.6 % Carboxyhemoglobin Arterial Blood Methemoglobin 0.6 % Blood Gas Hemoglobin 13.0 G/DL Oxygen Delivery Device NASAL CANNULA Blood Gas Liter Flow 2 L/M Test 12/25/16 12/26/16 22:30 05:00 Prothrombin Time 11.5 SEC Prothromb Time International 1.0 RATIO Ratio Activated Partial 82.8 SEC 75.6 SEC Thromboplast Time White Blood Count 8.4 TH/MM3 Red Blood Count 3.66 MIL/MM3 Hemoglobin 8.0 GM/DL Hematocrit 26.8 % Mean Corpuscular Volume 73.1 FL Mean Corpuscular Hemoglobin 21.8 PG Mean Corpuscular Hemoglobin 29.8 % Concent Red Cell Distribution Width 23.0 % Platelet Count 484 TH/MM3 Mean Platelet Volume 7.1 FL Neutrophils (%) (Auto) 89.7 % Lymphocytes (%) (Auto) 9.0 % Monocytes (%) (Auto) 1.1 % Eosinophils (%) (Auto) 0.0 % Basophils (%) (Auto) 0.2 % Neutrophils # (Auto) 7.6 TH/MM3 Lymphocytes # (Auto) 0.8 TH/MM3 Monocytes # (Auto) 0.1 TH/MM3 Eosinophils # (Auto) 0.0 TH/MM3 Basophils # (Auto) 0.0 TH/MM3 CBC Comment AUTO DIFF Differential Comment AUTO DIFF CONFIRMED Platelet Estimate HIGH Platelet Morphology Comment NORMAL Tear Drop Cells 1+ Ovalocytes 1+ Acanthocytes Keratocytes OCC Sodium Level 140 MEQ/L Potassium Level 3.2 MEQ/L Chloride Level 105 MEQ/L Carbon Dioxide Level 24.1 MEQ/L Anion Gap 11 MEQ/L Blood Urea Nitrogen 10 MG/DL Creatinine 0.86 MG/DL Estimat Glomerular Filtration 93 ML/MIN Rate Random Glucose 217 MG/DL Calcium Level 9.3 MG/DL Microbiology Microbiology 12/25/16 Aerobic Blood Culture, Received Pending 12/25/16 Anaerobic Blood Culture, Received Pending 12/25/16 Aerobic Blood Culture, Received Pending 12/25/16 Anaerobic Blood Culture, Received Pending Physical Exam General General Appearance: Well Developed, Well Nourished, Anxious Eyes Eye Exam: Pupils Equal, Pupils Reactive Ears & Nose Ears & Nose Exam: Nasal Mucosa [place] Throat Throat Exam: Oral Mucosa [place] & Moist Neck Neck Exam: Neck Supple, Trachea Midline Pulmonary Resp Remarks exp. wheeze Cardiology CV Exam: Good Perfusion, Tachycardia Gastrointestinal/Abdomen GI Exam: Soft, Non-Tender, Bowel Sounds Present, Distended Musculoskeletal MS Exam: Joints Intact MS Remarks scar to right hip from recent surgery, healing well Integumentary Skin Exam: Warm, Dry Extremeties Extremities Exam: No Edema, Pedal Pulses Palpable Neurologic Neuro Exam: Alert, Awake, Oriented, Speech Clear, Moving All Extremities, No Focal Deficits Psychiatric Psych Exam: Appropriate Responses VTE Prophylaxis VTE Prophylaxis Meds: Heparin PUD Prophylasis PUD Prophylaxis: Carafate Assessment/Plan Problem List: (1) Pulmonary embolism (2) Sepsis (3) Acute asthma exacerbation (4) Hypertension (5) Hyperlipidemia (6) Anemia (7) Abscess of hip, right Plan: hx of infection, currently on abx (8) S/P total hip arthroplasty Assessment/Plan continue with BIPAP PRN Duoenebs IV steroids 125 mg IV q 6 Pulmonary consult pending add Hycodan PRN cough hx DVT and PE, was on Eliquis now with recurrent PE, failed on Eliquis appreciate cardiology input, recommends to change to Pradaxa continue with heparin gtt for now noted with drop in HH, has been trending down dc IVF Checks stools for OB x 3 continue Micafungin, end date 12/[address] for now repeat lactic acid continue Rocephin and Zithromax consult ID for evaluation follow CBC ST on monitor, resume Cardizem Pain management, resume [place] add Flexeril PRN noted with elevated blood glucose, on steroids will add accuchecks AC/HS with ISS PPI and carafate for GI prophylaxis Replace K Labs in am Condition guarded, multiple admissions, was only home 20 days D/W RN D/W Dr. Santoyo D/W pt. This pt. was seen by myself and Dr. Santoyo, this note is written on his behalf. Problem Qualifiers (1) Pulmonary embolism: Qualified Code: I26.99 - Other pulmonary embolism without acute cor pulmonale, unspecified chronicity (2) Sepsis: Qualified Code: A41.9 - Sepsis, due to unspecified organism (3) Acute asthma exacerbation: Qualified Code: J45.901 - Asthma with acute exacerbation, unspecified asthma severity (4) Hypertension: Qualified Code: I10 - Essential hypertension (5) Hyperlipidemia: Qualified Code: E78.5 - Hyperlipidemia, unspecified hyperlipidemia type (6) Anemia: Qualified Code: D64.9 - Anemia, unspecified type (7) S/P total hip arthroplasty: Qualified Code: Z96.641 - Status post total replacement of right hip Elizabeth Iraheta Dec 26, 2016 08:29
[2016-12-26] MEDS: SUCRALFATE 1 GM TAB PO SCH ×3 (09:01→17:09)
[2016-12-26] MEDS: CYCLOBENZAPRINE HCL 10 MG TAB PO PRN ×2 (09:02→17:14)
[2016-12-26] MEDS: DILTIAZEM-CD 180 MG CAP ER PO SCH (09:02)
[2016-12-26] MEDS: PANTOPRAZOLE SOD 40 MG DELAYED RELEASE TAB PO SCH (09:02)
[2016-12-26] MEDS: LORazepam 0.5 MG TAB PO SCH ×2 (09:04→20:04)
[2016-12-26] MEDS: BUDESONIDE-FORMOTEROL 160/4.5 MCG INHALER INH SCH ×2 (09:04→20:04)
[2016-12-26] MEDS: SODIUM CHLORIDE 0.9% FLUSH 10 ML FLUSH IVF SCH (09:05)
[2016-12-26] MEDS: HYDROcodone 5 MG/HOMATROPINE 1.5 MG SYRUP 5 ML CUP PO PRN (09:31)
--- NOTE | 2016-12-26 10:14 | MB ---
cc: MARY HERNANDEZ M.D. DATE OF CONSULTATION: 12/26/2016 REASON FOR CONSULTATION Recurrent pulmonary embolisim. HISTORY OF PRESENT ILLNESS Mr. Link is a 51-year-old male recently discharged from the hospital after hip replacement. The patient had a history of septic arthritis of the right hip. Conservative management has not helped, surgery had to be undertaken. The patient has bronchial asthma which was quite persistent, on bronchodilator therapy at home. He had a history of pulmonary embolus about a year ago, has been well-controlled on Coumadin therapy, recently changed to Eliquis. He was doing well until several days ago when he developed increasing shortness of breath and presents to the emergency room with same. The CT angiography with right lower lobe embolization which seems new since previous. The patient is feeling better at this point. He is on oxygen therapy. He complains of intermittent chest wheeze. PAST MEDICAL HISTORY 1. Bronchial asthma. 2. DVT and pulmonary embolization in the past. 3. Acid reflux disease. 4. Degenerative joint disease. 5. Anxiety, depression. 6. Coronary artery disease. 7. Hyperlipidemia. 8. Hip surgery as above. MEDICATIONS Medications at home include: 1. Albuterol via inhalation tapering steroids prior to admission with 10 mg daily. 2. Symbicort twice daily. 3. Singulair twice a day. 4. Lipitor. 5. Carafate. 6. Protonix p.r.n. 7. DuoNeb via nebulization. 8. Potassium. 9. Ativan. 10. Eliquis. ALLERGIES DEMEROL, TETRACYCLINE. SOCIAL HISTORY Does not smoke, does not drink. No TB or industrial exposure. FAMILY HISTORY Noncontributory. REVIEW OF SYSTEMS 12-point review of systems as per HPI and past history, otherwise negative. PHYSICAL EXAMINATION GENERAL: The patient is alert. VITAL SIGNS: Temperature 98, pulse 98, respirations 20, blood pressure 134/80. HEENT: Exam unremarkable. Eyes without icterus. NECK: Without adenopathy or thyroid enlargement. CHEST: Scattered rhonchi and wheeze bilaterally. CARDIAC: PMI distant. S1-S2 audible. No murmur or rub. ABDOMEN: Lax, bowel sounds audible. EXTREMITIES: No clubbing, cyanosis, no edema. Pulses intact. LABORATORY DATA White count 8.4, hemoglobin 8, hematocrit 26. Admission hemoglobin was 10. Arterial blood gas pH 742, pCO2 33, pO2 115 on 2 liters oxygen nasal cannula. INR 1.0. IMAGING STUDIES CT angiogram showed right lower lobe pulmonary embolism. Chest x-ray without acute infiltrate. IMPRESSION 1. Pulmonary embolism. 2. Bronchial asthma. 3. Status post hip replacement. PLAN The patient will be maintained on oxygen therapy as needed. Heparin will be continued. It may be advisable to switch back to Coumadin therapy as he has done well on same. Meanwhile, ask hematology to see the patient for any suggestions as well. Bronchodilator therapy will be continued. I do thank you for asking me to partake in Mr. Link's care. Mary Hernandez MD WWW/TLL /8:58 AM /9:56 AM
[2016-12-26] MEDS: ACETAMINOPHEN/HYDROcodone 325 MG/5 MG TAB PO PRN ×3 (10:35→20:36)
[2016-12-26] MEDS: INSULIN ASPART SUPPLEMENTAL SCALE SQ SCH ×3 (11:55→20:06)
[2016-12-26] MEDS ORDERED: cefTRIAXone INJ 1,000 MG in SODIUM CHLORIDE 0.9% INJ 100 ML IV SCH (13:00)
--- NOTE | 2016-12-26 13:38 | PD.CARD.PN ---
Subjective Subjective Remarks No CP, mild SOB Objective Medications Current Medications Medications (Trade) Dose Ordered Sig/Gabi Route Start Time Stop Time Status Last Admin (Zofran Inj) 4 mg Q6H PRN IVP 12/25/16 14:45 (Colace) 100 mg Q12H PO 12/25/16 14:45 12/26/16 03:14 (Narcan Inj) 0.4 mg UNSCH PRN IV 12/25/16 14:45 Methylprednisolone Sodium Succinate 125 mg 125 mg Q6H IV PUSH 12/25/16 20:00 12/26/16 07:31 Ceftriaxone Sodium 1000 mg/ Sodium Chloride 100 ml @ 200 mls/hr Q24H IV 12/26/16 13:00 12/26/16 13:23 (Zithromax Inj/ NS 250 ml Inj) 250 ml @ 250 mls/hr Q24H IV 12/26/16 14:00 (Heparin Inj) 5,000 units UNSCH PRN IV 12/25/16 22:00 Heparin Sodium (Porcine) 2500 units 2,500 units UNSCH PRN IV 12/25/16 22:00 Heparin Sodium/ Dextrose 250 ml @ 0 mls/hr TITRATE IV 12/25/16 16:00 12/26/16 07:30 (Mycamine Inj/NS Inj) 100 ml @ 100 mls/hr Q24H IV 12/25/16 21:00 12/31/16 20:59 12/25/16 22:30 (NS Flush) DAILY IVF 12/26/16 09:00 12/26/16 09:05 (Heparin Central Flush) DAILY IV FLUSH 12/26/16 09:00 12/26/16 09:05 (NS Flush) UNSCH PRN IVF 12/26/16 08:15 (Heparin Central Flush) UNSCH PRN IV FLUSH 12/26/16 08:15 (NS Flush) UNSCH PRN IVF 12/26/16 08:15 (Lipitor) 20 mg HS PO 12/26/16 21:00 (Symbicort 160-4.5 Inh) 2 puff Q12HR INH 12/26/16 09:00 12/26/16 09:04 (Cardizem Cd) 360 mg DAILY PO 12/26/16 09:00 12/26/16 09:02 (Singulair) 10 mg HS PO 12/26/16 21:00 (Carafate) 1 gm TID PO 12/26/16 09:00 12/26/16 12:00 (Flexeril) 10 mg Q8H PRN PO 12/26/16 08:15 12/26/16 09:02 (Protonix) 40 mg DAILY PO 12/26/16 09:00 12/26/16 09:02 (D50w (Vial) Inj) 25 ml UNSCH PRN IV PUSH 12/26/16 08:15 (Glucagon Inj) 1 mg UNSCH PRN OTHER 12/26/16 08:15 (Milk Of Magnesia Liq) 30 ml DAILY PRN PO 12/26/16 08:15 (Ativan) 0.5 mg BID PO 12/26/16 09:00 12/26/16 09:04 ([place] 5-325 Mg) 2 tab Q4H PRN PO 12/26/16 08:30 12/26/16 10:35 (Hycodan Liq) 5 ml Q6H PRN PO 12/26/16 08:30 12/26/16 09:31 Vital Signs / I&O Vital Signs Date Time Temp Pulse Resp B/P Pulse Ox O2 Delivery O2 Flow Rate FiO2 12/26/16 13:00 126 12/26/16 12:00 126 12/26/16 11:55 20 12/26/16 11:00 97.8 120 20 150/99 98 12/26/16 11:00 107 12/26/16 10:00 116 12/26/16 09:00 120 12/26/16 08:00 116 12/26/16 07:44 97 Nasal Cannula 2.00 12/26/16 07:30 98.5 113 22 150/99 100 12/26/16 07:00 110 12/26/16 07:00 100 Bi-Pap 40 12/26/16 06:00 108 12/26/16 05:00 109 12/26/16 04:00 109 12/26/16 03:19 99 40 12/26/16 03:00 97.8 109 19 138/94 99 12/26/16 03:00 104 12/26/16 02:32 112 12/26/16 01:00 108 12/26/16 00:00 110 12/25/16 23:00 120 12/25/16 23:00 97.5 116 22 148/92 99 12/25/16 22:00 118 12/25/16 21:00 124 12/25/16 20:00 110 12/25/16 20:00 97 40 12/25/16 19:00 99 Bi-Pap 40 12/25/16 19:00 125 12/25/16 19:00 98.3 113 24 127/80 99 12/25/16 18:03 108 139/81 98 BiPAP 12/25/16 16:00 108 16 133/90 97 BiPAP 12/25/16 15:11 98 40 I/O 12/25/16 12/25/16 12/25/16 12/26/16 12/26/16 12/26/16 07:00 15:00 23:00 07:00 15:00 23:00 Intake Total 1557 ml Output Total 2360 ml Balance -803 ml Intake Oral 720 ml IV Total 837 ml Output Urine Total 2360 ml # Voids 6 Physical Exam GENERAL: In NAD SKIN: Warm and dry. HEAD: Normocephalic. EYES: No scleral icterus. No injection or drainage. NECK: Supple, trachea midline. No JVD or lymphadenopathy. CARDIOVASCULAR: Regular rate and rhythm without murmurs, gallops, or rubs. RESPIRATORY: Few wheezes. No accessory muscle use. GASTROINTESTINAL: Abdomen soft, non-tender, nondistended. MUSCULOSKELETAL: No cyanosis, or edema. Laboratory Laboratory Tests Test 12/25/16 12/25/16 12/25/16 12/26/16 15:30 21:11 22:30 05:00 Lactic Acid Level 3.4 mmol/L Total Creatine Kinase 52 U/L 57 U/L Troponin I LESS THAN 0.02 LESS THAN 0.02 NG/ML NG/ML White Blood Count 9.5 TH/MM3 8.4 TH/MM3 Red Blood Count 3.98 MIL/MM3 3.66 MIL/MM3 Hemoglobin 9.0 GM/DL 8.0 GM/DL Hematocrit 29.6 % 26.8 % Mean Corpuscular Volume 74.2 FL 73.1 FL Mean Corpuscular Hemoglobin 22.5 PG 21.8 PG Mean Corpuscular Hemoglobin 30.3 % 29.8 % Concent Red Cell Distribution Width 22.8 % 23.0 % Platelet Count 513 TH/MM3 484 TH/MM3 Mean Platelet Volume 6.6 FL 7.1 FL Prothrombin Time 11.5 SEC Prothromb Time International 1.0 RATIO Ratio Activated Partial 82.8 SEC 75.6 SEC Thromboplast Time Neutrophils (%) (Auto) 89.7 % Lymphocytes (%) (Auto) 9.0 % Monocytes (%) (Auto) 1.1 % Eosinophils (%) (Auto) 0.0 % Basophils (%) (Auto) 0.2 % Neutrophils # (Auto) 7.6 TH/MM3 Lymphocytes # (Auto) 0.8 TH/MM3 Monocytes # (Auto) 0.1 TH/MM3 Eosinophils # (Auto) 0.0 TH/MM3 Basophils # (Auto) 0.0 TH/MM3 CBC Comment AUTO DIFF Differential Comment AUTO DIFF CONFIRMED Platelet Estimate HIGH Platelet Morphology Comment NORMAL Tear Drop Cells 1+ Ovalocytes 1+ Acanthocytes Keratocytes OCC Sodium Level 140 MEQ/L Potassium Level 3.2 MEQ/L Chloride Level 105 MEQ/L Carbon Dioxide Level 24.1 MEQ/L Anion Gap 11 MEQ/L Blood Urea Nitrogen 10 MG/DL Creatinine 0.86 MG/DL Estimat Glomerular Filtration 93 ML/MIN Rate Random Glucose 217 MG/DL Calcium Level 9.3 MG/DL Imaging Last Impressions Chest X-Ray 12/25/16 1238 Signed Impressions: Service Date/Time: Sunday, December 25, 2016 13:27 - CONCLUSION: No focal infiltrates seen. Adriel Thompson MD CT Angiography 12/25/16 0000 Signed Impressions: Service Date/Time: Sunday, December 25, 2016 14:45 - CONCLUSION: Positive for pulmonary embolism in the right lower lobe with a large filling defect extending into at least 3 segmental arteries. No evidence of pleural effusion. Adriel Thompson MD Assessment and Plan Problem List: (1) Pulmonary embolism (2) S/P total hip arthroplasty (3) Acute asthma exacerbation (4) Acute hypercapnic respiratory failure (5) Hypertension (6) Hyperlipidemia Assessment and Plan Continue IV heparin, recommend to start Pradaxa as well. Continue tx for asthma. ST likely related to PE and bronchodilators. Continue monitoring. Problem Qualifiers (1) Pulmonary embolism: Qualified Code: I26.99 - Other pulmonary embolism without acute cor pulmonale, unspecified chronicity (2) Acute asthma exacerbation: Qualified Code: J45.901 - Asthma with acute exacerbation, unspecified asthma severity (3) Hypertension: Qualified Code: I10 - Essential hypertension (4) Hyperlipidemia: Qualified Code: E78.5 - Hyperlipidemia, unspecified hyperlipidemia type Adam Mooyd MD Dec 26, 2016 13:38
--- NOTE | 2016-12-26 13:54 | EKG ---
Date Performed: 12/25/2016 Time Performed: 12:39:47 PTAGE: 51 years EKG: SINUS TACHYCARDIA, POSSIBLE ATRIAL FLUTTER POSSIBLE LEFT VENTRICULAR HYPERTROPHY NONSPECIFI C T-WAVE ABNORMALITY ABNORMAL ECG Compared to prior tracing no significant change PREVIOUS TRACING : 09/29/2016 11.03 DOCTOR: Félix Jaramillo Interpretating Date/Time 12/26/2016 13:51:26
[2016-12-26 14:24] LABS: APTT (PATIENT) 52.3 SEC (24.3-30.1)
[2016-12-26] MEDS: AZITHROMYCIN INJ 500 MG in SODIUM CHLOR 0.9% 250 ML INJ 250 ML IV SCH (14:29)
[2016-12-26] MEDS ORDERED: ATROPINE SULFATE 1 MG/10 ML SYRINGE ONE (15:49)
[2016-12-26] MEDS ORDERED: EPINEPHrine HCL (1:10,000) 1 MG/10 ML SYRINGE ONE (15:50)
--- NOTE | 2016-12-26 16:42 | RADRPT ---
EXAM DATE/TIME: 12/26/2016 16:04 [facility] COMPARISON: HIP RIGHT (AP&LAT 2/3VWS) WO AP PELVIS, November 20, 2016, 22:03. HIP RIGHT (AP&LAT 2/3VWS) WO AP PELVI S, December 26, 2016, 16:04. INDICATIONS : Post hip replacement, c/o pain. MEDICAL HISTORY : None. asthma SURGICAL HISTORY : bilat hip surgery. ENCOUNTER: Initial ACUITY: 2 days PAIN SCORE: 7/10 LOCATION: Right femur FINDINGS: Total hip arthroplasty is seen on the right. The acetabular component appears intact, however the brian e plate involving the greater trochanteric area has by approximately 7-8 mm from the bone a nd the screw has migrated laterally. CONCLUSION: Migration of the screw laterally at the level of the greater trochanteric component with separation o f the plate by 7-8 mm. Glendy Harry MD on December 26, 2016 at 16:38 Board Certified Radiologist. This report was verified electronically.
--- NOTE | 2016-12-26 16:43 | RADRPT ---
EXAM DATE/TIME: 12/26/2016 16:04 [facility] COMPARISON: FEMUR RIGHT (AP & LAT/2VWS), December 26, 2016, 16:04. HIP RIGHT (AP&LAT 2/3VWS) WO AP PELVIS, November, 22:03. INDICATIONS : Post right hip surgery, c/o pain. MEDICAL HISTORY : asthma. SURGICAL HISTORY : bilateral hip surgery. ENCOUNTER: Initial ACUITY: 1 day PAIN SCORE: 7/10 LOCATION: Right hip FINDINGS: There is separation of the side plate with migration of the screw laterally at the level of the great er trochanter by approximately 7-8 mm. The rest of the prosthetic components appear intact no signifi cant change. CONCLUSION: Migration of the greater trochanteric screw laterally with separation of the side plate by approximat christy 7-8 mm. Glendy Harry MD on December 26, 2016 at 16:40 Board Certified Radiologist. This report was verified electronically.
[2016-12-26] MEDS: MONTELUKAST SODIUM 10 MG TAB PO SCH (20:04)
[2016-12-26] MEDS: ATORVASTATIN 20 MG TAB PO SCH (20:04)
[2016-12-26] MEDS: MICAFUNGIN IV SCH ×2 (20:22)
[2016-12-26] MEDS: SODIUM CHLORIDE IV SCH ×2 (20:22)
--- NOTE | 2016-12-26 22:31 | PD.ID.CON ---
History of Present Illness Service ID Consult Requested By Araceli GRANADOS Reason for Consult R hip fungal infx Primary Care Physician Myron Woodward MD Diagnoses: History of Present Illness Pt is well known to me. 51 M with candidal infection of R cachil dehe hip and sp prosthesis placement last month He grew nothing from that hip , but the last culture came + for C.albicansHis C. albicans isolate was S to fluconazole He failure initial fluconazole monotherapy, but his smx resolved on senior care combination tx fluconazole + micafungin About one month ago pt developped periprosthetic fx andf underwent ORIF All his clx were subsequently negative He healed, but con to have 7/10 pain Pt denies o fever chills Pt was admitted with asthma attack again and was diagnosed with PE He is on CFTX, azithromycin for suspected PNA Review of Systems Respiratory: COMPLAINS OF: Cough, Wheezing, Shortness of breath Neurologic: COMPLAINS OF: Abnormal gait, Poor Balance Except as stated in HPI: all other systems reviewed are Neg Past Family Social History Allergies: Coded Allergies: Tetracycline (Verified Allergy, Severe, throat swells, 12/25/16) Demerol (Verified Allergy, Intermediate, hallucinations, 12/25/16) Past Medical History PE DVT RLE Asthma dislipidemia Past Surgical History bl hip surgery Active Ordered Medications Medications where reviewed in EMR Antibiotics Include: CFTX azithro micafungin Family History CAD Social History No Tobacco. occasional ETOH. No Illicit Drugs.Physical Exam Physical Exam Vital Signs Vital Signs Date Time Temp Pulse Resp B/P Pulse Ox O2 Delivery O2 Flow Rate FiO2 12/26/16 22:08 98 40 12/26/16 22:00 114 12/26/16 21:34 20 12/26/16 21:00 118 12/26/16 20:28 97.9 119 20 159/94 100 12/26/16 20:09 99 40 12/26/16 20:00 120 12/26/16 19:00 115 12/26/16 18:00 120 12/26/16 17:02 123 12/26/16 16:00 135 12/26/16 15:00 97.9 122 20 151/89 98 12/26/16 15:00 121 12/26/16 14:00 133 12/26/16 13:00 126 12/26/16 12:00 126 12/26/16 11:00 97.8 120 20 150/99 98 12/26/16 11:00 107 12/26/16 10:00 116 12/26/16 09:00 120 12/26/16 08:00 116 12/26/16 07:44 97 Nasal Cannula 2.00 12/26/16 07:30 98.5 113 22 150/99 100 12/26/16 07:00 110 12/26/16 07:00 100 Bi-Pap 40 12/26/16 06:00 108 12/26/16 05:00 109 12/26/16 04:00 109 12/26/16 03:19 99 40 12/26/16 03:00 97.8 109 19 138/94 99 12/26/16 03:00 104 12/26/16 02:32 112 12/26/16 01:00 108 12/26/16 00:00 110 12/25/16 23:00 120 12/25/16 23:00 97.5 116 22 148/92 99 Physical Exam CONSTITUTIONAL/GENERAL: This is an obese patient, in no apparent distress. SKIN: No jaundice, rashes, or lesions. Skin temperature appropriate. Not diaphoretic. HEAD: Atraumatic. Normocephalic. EYES: Pupils equal and round and reactive. Extraocular motions intact. No scleral icterus. No injection or drainage. Fundi not examined. ENT: Hearing grossly normal. Nose without bleeding or purulent drainage. Oral mucosae without visible erythema, exudates, masses, or lesions. NECK: Trachea midline. Supple, nontender. No palpable thyroid enlargement or nodularity. CARDIOVASCULAR: Regular rate and rhythm without murmurs, gallops, or rubs. No JVD. Peripheral pulses symmetric. RESPIRATORY/CHEST: Symmetric, unlabored respirations. Extensive wheezing to auscultation. Breath sounds equal bilaterally. No rales, or rhonchi. GASTROINTESTINAL: Abdomen soft, globular non-tender, distended. No hepato- splenomegaly, or palpable masses. No guarding. Bowel sounds present. GENITOURINARY: Without palpable bladder distension. MUSCULOSKELETAL: Extremities without clubbing, cyanosis, or edema. Incision over R hip completely healed, but with some edeme noted arond it no erythema, + edema, Decreased ROM 2/2 pain LYMPHATICS: No palpable cervical or supraclavicular adenopathy. NEUROLOGICAL: Awake and alert. Motor and sensory grossly within normal limits. Follows commands. Cognitively sharp. Moves all extremities. PSYCHIATRIC: No obvious anxiety/depression. no apparent hallucinations or other psychotic thought process. Laboratory Laboratory Tests Test 12/25/16 12/26/16 12/26/16 22:30 05:00 13:55 Prothrombin Time 11.5 Prothromb Time International 1.0 Ratio Activated Partial 82.8 75.6 52.3 Thromboplast Time White Blood Count 8.4 Red Blood Count 3.66 Hemoglobin 8.0 Hematocrit 26.8 Mean Corpuscular Volume 73.1 Mean Corpuscular Hemoglobin 21.8 Mean Corpuscular Hemoglobin 29.8 Concent Red Cell Distribution Width 23.0 Platelet Count 484 Mean Platelet Volume 7.1 Neutrophils (%) (Auto) 89.7 Lymphocytes (%) (Auto) 9.0 Monocytes (%) (Auto) 1.1 Eosinophils (%) (Auto) 0.0 Basophils (%) (Auto) 0.2 Neutrophils # (Auto) 7.6 Lymphocytes # (Auto) 0.8 Monocytes # (Auto) 0.1 Eosinophils # (Auto) 0.0 Basophils # (Auto) 0.0 CBC Comment AUTO DIFF Differential Comment AUTO DIFF CONFIRMED Platelet Estimate HIGH Platelet Morphology Comment NORMAL Tear Drop Cells 1+ Ovalocytes 1+ Acanthocytes Keratocytes OCC Sodium Level 140 Potassium Level 3.2 Chloride Level 105 Carbon Dioxide Level 24.1 Anion Gap 11 Blood Urea Nitrogen 10 Creatinine 0.86 Estimat Glomerular Filtration 93 Rate Random Glucose 217 Calcium Level 9.3 Date/Time Procedure Status Source Growth 12/25/16 12:54 Aerobic Blood Culture - Preliminary Resulted Blood Peripheral NO GROWTH IN 1 DAY 12/25/16 12:54 Anaerobic Blood Culture - Preliminary Resulted Blood Peripheral NO GROWTH IN 1 DAY Result Diagram: 12/26/16 0500 12/26/16 0500 Imaging Last Impressions Hip X-Ray 12/26/16 0000 Signed Impressions: Service Date/Time: December 16:04 - CONCLUSION: Migration of the greater trochanteric screw laterally with separation of the side plate by approximately 7-8 mm. Glendy Harry MD Femur X-Ray 12/26/16 0000 Signed Impressions: Service Date/Time: December 16:04 - CONCLUSION: Migration of the screw laterally at the level of the greater trochanteric component with separation of the plate by 7-8 mm. Glendy Harry MD Chest X-Ray 12/25/16 1238 Signed Impressions: Service Date/Time: Sunday, December 25, 2016 13:27 - CONCLUSION: No focal infiltrates seen. Adriel Thompson MD CT Angiography 12/25/16 0000 Signed Impressions: Service Date/Time: Sunday, December 25, 2016 14:45 - CONCLUSION: Positive for pulmonary embolism in the right lower lobe with a large filling defect extending into at least 3 segmental arteries. No evidence of pleural effusion. Adriel Thompson MD Assessment and Plan Assessment and Plan Prosthetic hip infx, R hip, C.albicans - sp periprosthetic fx - Xray showed Migration of the greater trochanteric screw laterally with separation of the side plate by approximately 7-8 mm Here for asthma attack Large RLL PE - cont micafungin - start fluconazol - dc CFTX, - cont azithro for now will need dw Marizol Cox MD Dec 26, 2016 22:31
[2016-12-26 22:47] LABS: APTT (PATIENT) 49.2 SEC (24.3-30.1)
[2016-12-27] VITALS (29 sets, daily range): BP systolic 137–173; BP diastolic 91–99; PULSE 85–116; RESP 20–24; TEMP 97.5–98.1; O2SAT 97–100
[2016-12-27] MEDS: CYCLOBENZAPRINE HCL 10 MG TAB PO PRN ×2 (01:59→19:47)
[2016-12-27] MEDS: methylPREDNISolone SOD SUCC 125 MG/2 ML VIAL IV PUSH SCH ×4 (01:59→19:48)
[2016-12-27] MEDS: DOCUSATE SODIUM 100 MG CAP PO SCH ×2 (01:59→14:42)
[2016-12-27] MEDS: RESP: ALBUTEROL 2.5 MG/IPRATROPIUM 0.5 MG NEB (SCH) NEB ×5 (03:40→20:52)
[2016-12-27] MEDS: ACETAMINOPHEN/HYDROcodone 325 MG/5 MG TAB PO PRN ×3 (05:33→19:47)
[2016-12-27] MEDS: HYDROcodone 5 MG/HOMATROPINE 1.5 MG SYRUP 5 ML CUP PO PRN ×3 (05:33→19:47)
[2016-12-27 05:42] LABS: AUTOMATED NEUTROPHIL # 11.2 TH/MM3 (1.8-7.7); BASOPHIL % 0.2 % (0.0-2.0); HEMATOCRIT 24.3 % (39.0-51.0); LYMPH % 4.5 % (9.0-44.0); LYMPHOCYTE # 0.5 TH/MM3 (1.0-4.8); MEAN CELL VOLUME 72.2 FL (80.0-100.0); MEAN CORPUSCULAR HEMOGLOBIN 22.4 PG (27.0-34.0); MONO % 2.6 % (0.0-8.0); NEUT % 92.7 % (16.0-70.0); PLATELET COUNT 482 TH/MM3 (150-450); RED BLOOD COUNT 3.37 MIL/MM3 (4.50-5.90); RED CELL DISTRIBUTION WIDTH 22.7 % (11.6-17.2)
[2016-12-27 05:47] LABS: HEMO FLAGS AUTO DIFF
[2016-12-27 05:48] LABS: APTT (PATIENT) 55.1 SEC (24.3-30.1)
[2016-12-27 06:11] LABS: ALKALINE PHOSPHATASE 179 U/L (45-117); ALT (GPT) 58 U/L (12-78); ANION GAP 8 MEQ/L (5-15); AST (GOT) 27 U/L (15-37); BICARBONATE 26.8 MEQ/L (21.0-32.0); BLOOD UREA NITROGEN 15 MG/DL (7-18); CHLORIDE 104 MEQ/L (98-107); GLOMERULAR FILTRATION RATE 99 ML/MIN (>89); POTASSIUM 3.4 MEQ/L (3.5-5.1); SODIUM (NA) 139 MEQ/L (136-145); TOTAL BILIRUBIN ADULT 0.2 MG/DL (0.2-1.0)
[2016-12-27] MEDS: INSULIN ASPART SUPPLEMENTAL SCALE SQ SCH ×4 (06:16→21:02)
[2016-12-27 07:41] LABS: OVALOCYTES 1+ (NORMAL); SCAN/DIFF AUTO DIFF CONFIRMED; TEARDROP RBCS 1+ (NORMAL)
[2016-12-27] MEDS: PANTOPRAZOLE SOD 40 MG DELAYED RELEASE TAB PO SCH (08:41)
[2016-12-27] MEDS: DILTIAZEM-CD 180 MG CAP ER PO SCH (08:41)
[2016-12-27] MEDS: SUCRALFATE 1 GM TAB PO SCH ×3 (08:41→17:47)
[2016-12-27] MEDS: LORazepam 0.5 MG TAB PO SCH ×2 (08:42→21:03)
[2016-12-27] MEDS: SODIUM CHLORIDE 0.9% FLUSH 10 ML FLUSH IVF SCH (08:42)
--- NOTE | 2016-12-27 08:42 | HHI.PR ---
Subjective History of Present Illness Patient c/o SOB cough and wheezing d/w Dr Vuong grid trimmer Have Pulmonary embolism on heparin gtt. have low potassium and Leukocytosis start coumadin 5 mg PO Daily have rectal bleeding with Pradaxa in past Patient wants coumadin and grid trimmer agree with coumadin. ID / Cardiology input noted. Review of Systems Constitutional Constitutional: Fatigue, Weakness Pulmonary Respiratory: Coughing, Shortness of Breath, Wheezing Vitals/Results Intake & Output 12/26/16 12/26/16 12/27/16 15:00 23:00 07:00 Intake Total 1195 ml 991 ml Output Total 2125 ml 750 ml Balance -930 ml 241 ml Intake Oral 1080 ml 820 ml IV Total 115 ml 171 ml Output Urine Total 2125 ml 750 ml Vital Signs Vital Signs Date Time Temp Pulse Resp B/P Pulse Ox O2 Delivery O2 Flow Rate FiO2 12/27/16 06:07 20 12/27/16 06:00 95 12/27/16 05:00 94 12/27/16 04:00 94 12/27/16 03:41 100 40 12/27/16 03:41 100 Nasal Cannula 40 12/27/16 03:25 97.5 104 24 169/96 99 12/27/16 03:00 98 12/27/16 02:00 110 12/27/16 01:00 104 12/27/16 00:00 109 12/27/16 00:00 99 BiPAP 40 12/27/16 00:00 99 40 12/26/16 23:41 97.6 120 24 176/99 100 12/26/16 23:00 110 12/26/16 22:08 98 40 12/26/16 22:00 114 12/26/16 21:00 118 12/26/16 20:28 97.9 119 20 159/94 100 12/26/16 20:09 99 40 12/26/16 20:00 Room Air 12/26/16 20:00 120 12/26/16 19:00 115 12/26/16 18:00 120 12/26/16 17:02 123 12/26/16 16:00 135 12/26/16 15:00 97.9 122 20 151/89 98 12/26/16 15:00 121 12/26/16 14:00 133 12/26/16 13:00 126 12/26/16 12:00 126 12/26/16 11:00 97.8 120 20 150/99 98 12/26/16 11:00 107 12/26/16 10:00 116 12/26/16 09:00 120 CBC/BMP: 12/27/16 0520 12/27/16 0520 Lab Results Laboratory Tests Test 12/26/16 12/26/16 12/27/16 13:55 22:06 05:20 Activated Partial 52.3 SEC 49.2 SEC 55.1 SEC Thromboplast Time White Blood Count 12.0 TH/MM3 Red Blood Count 3.37 MIL/MM3 Hemoglobin 7.6 GM/DL Hematocrit 24.3 % Mean Corpuscular Volume 72.2 FL Mean Corpuscular Hemoglobin 22.4 PG Mean Corpuscular Hemoglobin 31.0 % Concent Red Cell Distribution Width 22.7 % Platelet Count 482 TH/MM3 Mean Platelet Volume 6.6 FL Neutrophils (%) (Auto) 92.7 % Lymphocytes (%) (Auto) 4.5 % Monocytes (%) (Auto) 2.6 % Eosinophils (%) (Auto) 0.0 % Basophils (%) (Auto) 0.2 % Neutrophils # (Auto) 11.2 TH/MM3 Lymphocytes # (Auto) 0.5 TH/MM3 Monocytes # (Auto) 0.3 TH/MM3 Eosinophils # (Auto) 0.0 TH/MM3 Basophils # (Auto) 0.0 TH/MM3 CBC Comment AUTO DIFF Differential Comment AUTO DIFF CONFIRMED Tear Drop Cells 1+ Ovalocytes 1+ Sodium Level 139 MEQ/L Potassium Level 3.4 MEQ/L Chloride Level 104 MEQ/L Carbon Dioxide Level 26.8 MEQ/L Anion Gap 8 MEQ/L Blood Urea Nitrogen 15 MG/DL Creatinine 0.82 MG/DL Estimat Glomerular Filtration 99 ML/MIN Rate Random Glucose 187 MG/DL Lactic Acid Level 3.0 mmol/L Calcium Level 9.1 MG/DL Magnesium Level 2.0 MG/DL Total Bilirubin 0.2 MG/DL Aspartate Amino Transf 27 U/L (AST/SGOT) Alanine Aminotransferase 58 U/L (ALT/SGPT) Alkaline Phosphatase 179 U/L Total Protein 5.9 GM/DL Albumin 3.2 GM/DL Physical Exam General General Appearance: Well Developed, Well Nourished, Comfortable, Anxious Eyes Eye Exam: Pupils Equal, Pupils Reactive, Sclera White, Extraocular Movement Intact Ears & Nose Ears & Nose Exam: Nasal Mucosa [place] Throat Throat Exam: Oral Mucosa [place] & Moist, Oral Pharynx Normal Neck Neck Exam: Neck Supple, Trachea Midline Pulmonary Resp Exam: Diminished Breath Sounds Resp Remarks Bilateral wheezing. Cardiology CV Exam: Good Perfusion, Tachycardia Gastrointestinal/Abdomen GI Exam: Soft, Non-Tender, Bowel Sounds Present, Distended Musculoskeletal MS Exam: Joints Intact Integumentary Skin Exam: Warm, Dry Extremeties Extremities Exam: No Edema, Pedal Pulses Palpable Neurologic Neuro Exam: Alert, Awake, Oriented, Speech Clear, Moving All Extremities, No Focal Deficits Psychiatric Psych Exam: Appropriate Responses VTE Prophylaxis VTE Prophylaxis Meds: Heparin PUD Prophylasis PUD Prophylaxis: Protonix, Carafate Assessment/Plan Problem List: (1) Pulmonary embolism (2) Sepsis (3) Acute asthma exacerbation (4) Hypertension (5) Hyperlipidemia (6) Anemia (7) Abscess of hip, right Plan: hx of infection, currently on abx (8) S/P total hip arthroplasty Assessment/Plan continue with BIPAP PRN Duoenebs IV steroids 60 mg IV q 6 Pulmonary input noted on Hycodan PRN cough hx DVT and PE, was on Eliquis now with recurrent PE, failed on Eliquis appreciate cardiology input, continue with heparin gtt add coumadin. noted with drop in HH, will monitor. Checks stools for OB x 3 continue Micafungin, end date 12/[address] for now repeat lactic acid noted 3.0 continue Zithromax ID input noted.. follow CBC sinus tachycardia.. on monitor, on Cardizem Pain management, on Bennett add Flexeril PRN noted with elevated blood glucose, on steroids on accuchecks AC/HS with ISS PPI and carafate for GI prophylaxis Hypokalemia will replace. Labs in am Condition guarded, multiple admissions, was only home 20 days D/W patient. Discussed Condition with: Patient Problem Qualifiers (1) Pulmonary embolism: Qualified Code: I26.99 - Other pulmonary embolism without acute cor pulmonale, unspecified chronicity (2) Sepsis: Qualified Code: A41.9 - Sepsis, due to unspecified organism (3) Acute asthma exacerbation: Qualified Code: J45.901 - Asthma with acute exacerbation, unspecified asthma severity (4) Hypertension: Qualified Code: I10 - Essential hypertension (5) Hyperlipidemia: Qualified Code: E78.5 - Hyperlipidemia, unspecified hyperlipidemia type (6) Anemia: Qualified Code: D64.9 - Anemia, unspecified type (7) S/P total hip arthroplasty: Qualified Code: Z96.641 - Status post total replacement of right hip Myron Woodward MD Dec 27, 2016 08:42
--- NOTE | 2016-12-27 09:05 | HHI.PR ---
Subjective Remarks alert afebrile occasional wheeze Objective Vital Signs Date Time Temp Pulse Resp B/P Pulse Ox O2 Delivery O2 Flow Rate FiO2 12/27/16 08:44 98 Nasal Cannula 2.00 12/27/16 06:07 20 12/27/16 06:00 95 12/27/16 05:00 94 12/27/16 04:00 94 12/27/16 03:41 100 40 12/27/16 03:41 100 Nasal Cannula 40 12/27/16 03:25 97.5 104 24 169/96 99 12/27/16 03:00 98 12/27/16 02:00 110 12/27/16 01:00 104 12/27/16 00:00 109 12/27/16 00:00 99 BiPAP 40 12/27/16 00:00 99 40 12/26/16 23:41 97.6 120 24 176/99 100 12/26/16 23:00 110 12/26/16 22:08 98 40 12/26/16 22:00 114 12/26/16 21:00 118 12/26/16 20:28 97.9 119 20 159/94 100 12/26/16 20:09 99 40 12/26/16 20:00 Room Air 12/26/16 20:00 120 12/26/16 19:00 115 12/26/16 18:00 120 12/26/16 17:02 123 12/26/16 16:00 135 12/26/16 15:00 97.9 122 20 151/89 98 12/26/16 15:00 121 12/26/16 14:00 133 12/26/16 13:00 126 12/26/16 12:00 126 12/26/16 11:00 97.8 120 20 150/99 98 12/26/16 11:00 107 12/26/16 10:00 116 I/O 12/26/16 12/26/16 12/26/16 12/27/16 12/27/16 12/27/16 07:00 15:00 23:00 07:00 15:00 23:00 Intake Total 1557 ml 1195 ml 991 ml Output Total 2360 ml 2125 ml 750 ml Balance -803 ml -930 ml 241 ml Intake Oral 720 ml 1080 ml 820 ml IV Total 837 ml 115 ml 171 ml Output Urine Total 2360 ml 2125 ml 750 ml # Voids 6 Result Diagram: 12/27/1651912/27/16519 Objective Remarks GENERAL: SKIN: Warm and dry. HEAD: Atraumatic. Normocephalic. EYES: Pupils equal and round. No scleral icterus. No injection or drainage. ENT: No nasal bleeding or discharge. Mucous membranes pink and moist. NECK: Trachea midline. No JVD. CARDIOVASCULAR: Regular rate and rhythm. RESPIRATORY: No accessory muscle use. scattered wheeze GASTROINTESTINAL: Abdomen soft, non-tender, nondistended. Hepatic and splenic margins not palpable. MUSCULOSKELETAL: Extremities without clubbing, cyanosis, or edema. No obvious deformities. NEUROLOGICAL: Awake and alert. No obvious cranial nerve deficits. Motor grossly within normal limits. Five out of 5 muscle strength in the arms and legs. Normal speech. PSYCHIATRIC: Appropriate mood and affect; insight and judgment normal. Assessment and Plan Assessment and Plan respiratory failure acute PE Asthma PLAN anticoags bronchodilator therapy increase activity Mary Hernandez MD Dec 27, 2016 09:05
[2016-12-27] MEDS: BUDESONIDE-FORMOTEROL 160/4.5 MCG INHALER INH SCH ×2 (09:47→21:03)
[2016-12-27] MEDS: FLUCONAZOLE 200 MG TAB PO SCH (09:47)
--- NOTE | 2016-12-27 10:53 | RADRPT ---
EXAM DATE/TIME: 12/27/2016 10:06 [place] COMPARISON: No previous studies available for comparison. INDICATIONS : Right leg swelling. MEDICAL HISTORY : Deep venous thrombosis. Gastroesophageal reflux disease. Chronic obstructive pulmonary disease. Hy percholesterolemia. Tachycardia. Hypertension. Astma. Pneumonia. Arthritis. Anxiety. Anticoagulant th erapy. Pulmonary embolism. Measles. SURGICAL HISTORY : Tonsillectomy. Appendectomy. Bilateral hip replacement. ENCOUNTER: Subsequent ACUITY: 2 day PAIN SCORE: 7/10 LOCATION: Right leg. TECHNIQUE: Venous ultrasound of the leg was performed from the inguinal ligament to the proximal calf. Real-manolo e, color Doppler and spectral tracing, compression and augmentation techniques were used. FINDINGS: There is normal compressibility of the deep venous system from the inguinal region to the proximal ca lf. No echogenic clot is seen in the lumen of the common femoral, femoral, popliteal, and posterior tibial veins. There is a normal response of the venous system to proximal and distal augmentation an d respiration. CONCLUSION: Normal examination. Glendy Harry MD on December 27, 2016 at 10:51 Board Certified Radiologist. This report was verified electronically.
[2016-12-27] MEDS: POTASSIUM CHLORIDE 10 MEQ CONTROLLED RELEASE TAB PO SCH (11:38)
--- NOTE | 2016-12-27 12:50 | MB ---
cc: JES PUGA DATE OF CONSULTATION 12/27/2016 REASON FOR CONSULTATION Follow up right hip. HISTORY This patient has had many admissions in the last two years for a pulmonary embolus, asthma, etc. He also ended up with Ghada infection of the right hip for which she had to have multiple surgeries with the last one being fixation of a periprosthetic fracture and a revision hip replacement. This was 5-1/2 weeks ago. The patient was last seen in the office when the wound incision was clean and dry. X-rays were satisfactory. He is now with no particular complaints in relation to the hip. He was readmitted to the hospital for recurrent pulmonary embolus and now therefore on IV heparin and awaiting further disposition. PHYSICAL EXAM Physical examination reveals that he is sitting out of bed right. The right hip incision is healed. He moves his toes well. X-rays of the right hip done yesterday reveals a good appearance and alignment of revision hip replacement and fixation devices and definite callus formation across the fracture sites. IMPRESSION Five and a half weeks post revision hip replacement and internal fixation periprosthetic fracture. It is coming along very well. He is still on IV Micafungin and oral Diflucan which should be continued until Friday the . I have ordered physical therapy and ambulation, weightbearing as tolerated with a walker. MD PETE Christiansen/ANGELIQUE /12:38 PM /12:44 PM
[2016-12-27] MEDS: AZITHROMYCIN INJ 500 MG in SODIUM CHLOR 0.9% 250 ML INJ 250 ML IV SCH (14:42)
[2016-12-27] MEDS: WARFARIN SOD 5 MG TAB PO SCH (16:30)
[2016-12-27] MEDS ORDERED: DO NOT ADM ANY ANTICOAGULANT DRUGS OTHER PRN (16:45)
--- NOTE | 2016-12-27 17:32 | PD.CARD.PN ---
Subjective Subjective Remarks R lat CP, still c/o SOB Objective Medications Current Medications Medications (Trade) Dose Ordered Sig/Gabi Route Start Time Stop Time Status Last Admin (Zofran Inj) 4 mg Q6H PRN IVP 12/25/16 14:45 (Colace) 100 mg Q12H PO 12/25/16 14:45 12/27/16 14:42 Naloxone HCl 0.4 mg 0.4 mg UNSCH PRN IV 12/25/16 14:45 (Zithromax Inj/ NS 250 ml Inj) 250 ml @ 250 mls/hr Q24H IV 12/26/16 14:00 12/27/16 14:42 (Heparin Inj) 5,000 units UNSCH PRN IV 12/25/16 22:00 Heparin Sodium (Porcine) 2500 units 2,500 units UNSCH PRN IV 12/25/16 22:00 Heparin Sodium/ Dextrose 250 ml @ 0 mls/hr TITRATE IV 12/25/16 16:00 12/26/16 23:50 (Mycamine Inj/NS Inj) 100 ml @ 100 mls/hr Q24H IV 12/25/16 21:00 12/31/16 20:59 12/26/16 20:22 (NS Flush) DAILY IVF 12/26/16 09:00 12/27/16 08:42 (Heparin Central Flush) DAILY IV FLUSH 12/26/16 09:00 12/27/16 09:47 (NS Flush) UNSCH PRN IVF 12/26/16 08:15 (Heparin Central Flush) UNSCH PRN IV FLUSH 12/26/16 08:15 (NS Flush) UNSCH PRN IVF 12/26/16 08:15 (Lipitor) 20 mg HS PO 12/26/16 21:00 12/26/16 20:04 (Symbicort 160-4.5 Inh) 2 puff Q12HR INH 12/26/16 09:00 12/27/16 09:47 (Cardizem Cd) 360 mg DAILY PO 12/26/16 09:00 12/27/16 08:41 (Singulair) 10 mg HS PO 12/26/16 21:00 12/26/16 20:04 (Carafate) 1 gm TID PO 12/26/16 09:00 12/27/16 13:00 (Flexeril) 10 mg Q8H PRN PO 12/26/16 08:15 12/27/16 01:59 (Protonix) 40 mg DAILY PO 12/26/16 09:00 12/27/16 08:41 (D50w (Vial) Inj) 25 ml UNSCH PRN IV PUSH 12/26/16 08:15 (Glucagon Inj) 1 mg UNSCH PRN OTHER 12/26/16 08:15 (Milk Of Magnesia Liq) 30 ml DAILY PRN PO 12/26/16 08:15 (Ativan) 0.5 mg BID PO 12/26/16 09:00 12/27/16 08:42 ([place] 5-325 Mg) 2 tab Q4H PRN PO 12/26/16 08:30 12/27/16 09:48 (Hycodan Liq) 5 ml Q6H PRN PO 12/26/16 08:30 12/27/16 12:16 (Diflucan) 400 mg DAILY PO 12/27/16 09:00 12/27/16 09:47 (KCl) 60 meq DAILY PO 12/27/16 11:15 12/27/16 11:38 (Coumadin) 5 mg DAILY@1600 PO 12/27/16 16:30 Miscellaneous Information ALL NURSING DEPARTME... UNSCH PRN OTHER 12/27/16 16:45 12/28/16 16:44 (SoluMEDROL INJ) 60 mg Q6H IV PUSH 12/27/16 20:00 Vital Signs / I&O Vital Signs Date Time Temp Pulse Resp B/P Pulse Ox O2 Delivery O2 Flow Rate FiO2 12/27/16 13:04 18 12/27/16 08:44 98 Nasal Cannula 2.00 12/27/16 06:00 95 12/27/16 05:00 94 12/27/16 04:00 94 12/27/16 03:41 100 40 12/27/16 03:41 100 Nasal Cannula 40 12/27/16 03:25 97.5 104 24 169/96 99 12/27/16 03:00 98 12/27/16 02:00 110 12/27/16 01:00 104 12/27/16 00:00 109 12/27/16 00:00 99 BiPAP 40 12/27/16 00:00 99 40 12/26/16 23:41 97.6 120 24 176/99 100 12/26/16 23:00 110 12/26/16 22:08 98 40 12/26/16 22:00 114 12/26/16 21:00 118 12/26/16 20:28 97.9 119 20 159/94 100 12/26/16 20:09 99 40 12/26/16 20:00 Room Air 12/26/16 20:00 120 12/26/16 19:00 115 12/26/16 18:00 120 I/O 12/26/16 12/26/16 12/26/16 12/27/16 12/27/16 12/27/16 07:00 15:00 23:00 07:00 15:00 23:00 Intake Total 1557 ml 1195 ml 991 ml Output Total 2360 ml 2125 ml 750 ml Balance -803 ml -930 ml 241 ml Intake Oral 720 ml 1080 ml 820 ml IV Total 837 ml 115 ml 171 ml Output Urine Total 2360 ml 2125 ml 750 ml # Voids 6 Physical Exam GENERAL: In NAD SKIN: Warm and dry. HEAD: Normocephalic. EYES: No scleral icterus. No injection or drainage. NECK: Supple, trachea midline. No JVD or lymphadenopathy. CARDIOVASCULAR: Regular rate and rhythm without murmurs, gallops, or rubs. RESPIRATORY: Few wheezes. No accessory muscle use. GASTROINTESTINAL: Abdomen soft, non-tender, nondistended. MUSCULOSKELETAL: No cyanosis, or edema. Laboratory Laboratory Tests Test 12/26/16 12/27/16 22:06 05:20 Activated Partial 49.2 SEC 55.1 SEC Thromboplast Time White Blood Count 12.0 TH/MM3 Red Blood Count 3.37 MIL/MM3 Hemoglobin 7.6 GM/DL Hematocrit 24.3 % Mean Corpuscular Volume 72.2 FL Mean Corpuscular Hemoglobin 22.4 PG Mean Corpuscular Hemoglobin 31.0 % Concent Red Cell Distribution Width 22.7 % Platelet Count 482 TH/MM3 Mean Platelet Volume 6.6 FL Neutrophils (%) (Auto) 92.7 % Lymphocytes (%) (Auto) 4.5 % Monocytes (%) (Auto) 2.6 % Eosinophils (%) (Auto) 0.0 % Basophils (%) (Auto) 0.2 % Neutrophils # (Auto) 11.2 TH/MM3 Lymphocytes # (Auto) 0.5 TH/MM3 Monocytes # (Auto) 0.3 TH/MM3 Eosinophils # (Auto) 0.0 TH/MM3 Basophils # (Auto) 0.0 TH/MM3 CBC Comment AUTO DIFF Differential Comment AUTO DIFF CONFIRMED Tear Drop Cells 1+ Ovalocytes 1+ Sodium Level 139 MEQ/L Potassium Level 3.4 MEQ/L Chloride Level 104 MEQ/L Carbon Dioxide Level 26.8 MEQ/L Anion Gap 8 MEQ/L Blood Urea Nitrogen 15 MG/DL Creatinine 0.82 MG/DL Estimat Glomerular Filtration 99 ML/MIN Rate Random Glucose 187 MG/DL Lactic Acid Level 3.0 mmol/L Calcium Level 9.1 MG/DL Magnesium Level 2.0 MG/DL Total Bilirubin 0.2 MG/DL Aspartate Amino Transf 27 U/L (AST/SGOT) Alanine Aminotransferase 58 U/L (ALT/SGPT) Alkaline Phosphatase 179 U/L Total Protein 5.9 GM/DL Albumin 3.2 GM/DL Imaging Last Impressions Lower Extremity Ultrasound 12/27/16 0000 Signed Impressions: Service Date/Time: Tuesday, December 27, 2016 10:06 - CONCLUSION: Normal examination. Glendy Harry MD Hip X-Ray 12/26/16 0000 Signed Impressions: Service Date/Time: December 16:04 - CONCLUSION: Migration of the greater trochanteric screw laterally with separation of the side plate by approximately 7-8 mm. Glendy Harry MD Femur X-Ray 12/26/16 0000 Signed Impressions: Service Date/Time: December 16:04 - CONCLUSION: Migration of the screw laterally at the level of the greater trochanteric component with separation of the plate by 7-8 mm. Glendy Harry MD Chest X-Ray 12/25/16 1238 Signed Impressions: Service Date/Time: Sunday, December 25, 2016 13:27 - CONCLUSION: No focal infiltrates seen. Adriel Thompson MD CT Angiography 12/25/16 0000 Signed Impressions: Service Date/Time: Sunday, December 25, 2016 14:45 - CONCLUSION: Positive for pulmonary embolism in the right lower lobe with a large filling defect extending into at least 3 segmental arteries. No evidence of pleural effusion. Adriel Thompson MD Assessment and Plan Problem List: (1) Pulmonary embolism (2) S/P total hip arthroplasty (3) Acute asthma exacerbation (4) Acute hypercapnic respiratory failure (5) Hypertension (6) Hyperlipidemia Assessment and Plan Continue IV heparin, started on Coumadin as well. Continue tx for asthma exacerbation. Sinus tachycardia likely related to PE and bronchodilators. Continue monitoring. Problem Qualifiers (1) Pulmonary embolism: Qualified Code: I26.99 - Other pulmonary embolism without acute cor pulmonale, unspecified chronicity (2) Acute asthma exacerbation: Qualified Code: J45.901 - Asthma with acute exacerbation, unspecified asthma severity (3) Hypertension: Qualified Code: I10 - Essential hypertension (4) Hyperlipidemia: Qualified Code: E78.5 - Hyperlipidemia, unspecified hyperlipidemia type Adam Moody MD Dec 27, 2016 17:32
[2016-12-27] MEDS: HEPARIN-D5W INJ 250 ML IV SCH (19:53)
[2016-12-27] MEDS: MICAFUNGIN IV SCH ×2 (21:02)
[2016-12-27] MEDS: SODIUM CHLORIDE IV SCH ×2 (21:02)
[2016-12-27] MEDS: MONTELUKAST SODIUM 10 MG TAB PO SCH (21:03)
[2016-12-27] MEDS: ATORVASTATIN 20 MG TAB PO SCH (21:03)
[2016-12-28] VITALS (30 sets, daily range): BP systolic 136–170; BP diastolic 57–104; PULSE 85–144; RESP 20–24; TEMP 96.8–98.7; O2SAT 97–100
[2016-12-28] MEDS: ACETAMINOPHEN/HYDROcodone 325 MG/5 MG TAB PO PRN ×6 (00:49→20:58)
[2016-12-28] MEDS: RESP: ALBUTEROL 2.5 MG/IPRATROPIUM 0.5 MG NEB (SCH) NEB ×7 (01:22→23:53)
[2016-12-28] MEDS: DOCUSATE SODIUM 100 MG CAP PO SCH ×2 (02:44→16:03)
[2016-12-28] MEDS: CYCLOBENZAPRINE HCL 10 MG TAB PO PRN ×3 (02:44→19:08)
[2016-12-28] MEDS: methylPREDNISolone SOD SUCC 125 MG/2 ML VIAL IV PUSH SCH ×4 (02:45→19:08)
[2016-12-28] MEDS: HYDROcodone 5 MG/HOMATROPINE 1.5 MG SYRUP 5 ML CUP PO PRN ×2 (04:19→20:57)
[2016-12-28 05:26] LABS: AUTOMATED NEUTROPHIL # 10.4 TH/MM3 (1.8-7.7); BASOPHIL % 0.2 % (0.0-2.0); HEMATOCRIT 24.6 % (39.0-51.0); LYMPH % 4.8 % (9.0-44.0); LYMPHOCYTE # 0.5 TH/MM3 (1.0-4.8); MEAN CELL VOLUME 71.9 FL (80.0-100.0); MEAN CORPUSCULAR HGB CONC 30.6 % (32.0-36.0); MONO % 3.1 % (0.0-8.0); NEUT % 91.9 % (16.0-70.0); PLATELET COUNT 486 TH/MM3 (150-450); RED BLOOD COUNT 3.42 MIL/MM3 (4.50-5.90); RED CELL DISTRIBUTION WIDTH 22.4 % (11.6-17.2); WHITE BLOOD COUNT 11.3 TH/MM3 (4.0-11.0)
[2016-12-28 05:34] LABS: HEMO FLAGS AUTO DIFF
[2016-12-28 05:40] LABS: APTT (PATIENT) 56.5 SEC (24.3-30.1)
[2016-12-28 05:46] LABS: ALT (GPT) 62 U/L (12-78); ANION GAP 9 MEQ/L (5-15); AST (GOT) 22 U/L (15-37); BICARBONATE 26.5 MEQ/L (21.0-32.0); BLOOD UREA NITROGEN 16 MG/DL (7-18); CHLORIDE 105 MEQ/L (98-107); GLOMERULAR FILTRATION RATE 100 ML/MIN (>89); POTASSIUM 3.5 MEQ/L (3.5-5.1); SODIUM (NA) 140 MEQ/L (136-145)
[2016-12-28 05:48] LABS: ALKALINE PHOSPHATASE 165 U/L (45-117); TOTAL BILIRUBIN ADULT 0.2 MG/DL (0.2-1.0)
[2016-12-28] MEDS: INSULIN ASPART SUPPLEMENTAL SCALE SQ SCH ×4 (06:37→21:01)
[2016-12-28 08:59] LABS: KERATOCYTES OCC (NORMAL); OVALOCYTES 1+ (NORMAL); PLATELET ESTIMATE SMEAR HIGH (NORMAL); PLATELET MORPHOLOGY NORMAL (NORMAL); SCAN/DIFF AUTO DIFF CONFIRMED; TEARDROP RBCS 1+ (NORMAL)
[2016-12-28] MEDS: SODIUM CHLORIDE 0.9% FLUSH 10 ML FLUSH IVF SCH ×2 (09:11→20:57)
[2016-12-28] MEDS: POTASSIUM CHLORIDE 10 MEQ CONTROLLED RELEASE TAB PO SCH (09:12)
[2016-12-28] MEDS: DILTIAZEM-CD 180 MG CAP ER PO SCH (09:12)
[2016-12-28] MEDS: FLUCONAZOLE 200 MG TAB PO SCH (09:12)
[2016-12-28] MEDS: SUCRALFATE 1 GM TAB PO SCH ×3 (09:12→16:59)
[2016-12-28] MEDS: PANTOPRAZOLE SOD 40 MG DELAYED RELEASE TAB PO SCH (09:13)
[2016-12-28] MEDS: LORazepam 0.5 MG TAB PO SCH ×2 (09:13→20:57)
[2016-12-28] MEDS: BUDESONIDE-FORMOTEROL 160/4.5 MCG INHALER INH SCH ×2 (09:13→20:57)
--- NOTE | 2016-12-28 10:10 | HHI.PR ---
Subjective History of Present Illness Patient have SOB cough and sever wheezing Have Pulmonary embolism on heparin gtt. low potassium resolved and Leukocytosis down trend on coumadin 5 mg PO Daily have rectal bleeding with Pradaxa ID / Cardiology input noted. Review of Systems Constitutional Constitutional: Fatigue, Weakness Pulmonary Respiratory: Coughing, Shortness of Breath, Wheezing Musculoskeletal MS Remarks Right Hip Pain. Vitals/Results Intake & Output 12/27/16 12/27/16 12/28/16 15:00 23:00 07:00 Intake Total 900 ml Output Total 900 ml Balance 0 ml Intake Oral 800 ml IV Total 100 ml Output Urine Total 900 ml # Voids 1 # Bowel Movements 1 Vital Signs Vital Signs Date Time Temp Pulse Resp B/P Pulse Ox O2 Delivery O2 Flow Rate FiO2 12/28/16 09:00 140 12/28/16 08:00 97 12/28/16 07:40 100 40 12/28/16 07:15 97.7 97 20 164/90 98 12/28/16 07:15 98 Nasal Cannula 3.00 12/28/16 07:00 85 12/28/16 06:00 85 12/28/16 05:00 149/97 12/28/16 05:00 87 12/28/16 05:00 20 12/28/16 04:55 100 40 12/28/16 04:12 97.5 98 24 160/102 100 12/28/16 04:00 86 12/28/16 03:00 88 12/28/16 02:00 100 12/28/16 01:23 100 40 12/28/16 01:00 104 12/28/16 01:00 148/99 12/28/16 00:00 100 12/28/16 00:00 100 Bi-Pap 40 12/28/16 00:00 96.8 96 20 170/104 99 12/27/16 23:00 100 12/27/16 22:00 96 12/27/16 21:10 98 40 12/27/16 21:00 98 12/27/16 20:52 97 Nasal Cannula 2.00 12/27/16 20:00 Nasal Cannula 3.00 12/27/16 20:00 98 12/27/16 19:00 85 12/27/16 19:00 98.1 107 20 163/99 100 12/27/16 18:00 106 12/27/16 17:00 100 12/27/16 16:00 98 12/27/16 15:00 98.0 106 22 153/91 99 12/27/16 13:00 100 12/27/16 12:00 104 12/27/16 11:00 97.8 114 22 137/93 99 12/27/16 11:00 108 CBC/BMP: 12/28/16 0420 12/28/16 0420 Lab Results Laboratory Tests Test 12/28/16 04:20 White Blood Count 11.3 TH/MM3 Red Blood Count 3.42 MIL/MM3 Hemoglobin 7.5 GM/DL Hematocrit 24.6 % Mean Corpuscular Volume 71.9 FL Mean Corpuscular Hemoglobin 22.0 PG Mean Corpuscular Hemoglobin 30.6 % Concent Red Cell Distribution Width 22.4 % Platelet Count 486 TH/MM3 Mean Platelet Volume 6.8 FL Neutrophils (%) (Auto) 91.9 % Lymphocytes (%) (Auto) 4.8 % Monocytes (%) (Auto) 3.1 % Eosinophils (%) (Auto) 0.0 % Basophils (%) (Auto) 0.2 % Neutrophils # (Auto) 10.4 TH/MM3 Lymphocytes # (Auto) 0.5 TH/MM3 Monocytes # (Auto) 0.4 TH/MM3 Eosinophils # (Auto) 0.0 TH/MM3 Basophils # (Auto) 0.0 TH/MM3 CBC Comment AUTO DIFF Differential Comment AUTO DIFF CONFIRMED Platelet Estimate HIGH Platelet Morphology Comment NORMAL Tear Drop Cells 1+ Ovalocytes 1+ Keratocytes OCC Activated Partial 56.5 SEC Thromboplast Time Sodium Level 140 MEQ/L Potassium Level 3.5 MEQ/L Chloride Level 105 MEQ/L Carbon Dioxide Level 26.5 MEQ/L Anion Gap 9 MEQ/L Blood Urea Nitrogen 16 MG/DL Creatinine 0.81 MG/DL Estimat Glomerular Filtration 100 ML/MIN Rate Random Glucose 192 MG/DL Calcium Level 8.9 MG/DL Total Bilirubin 0.2 MG/DL Aspartate Amino Transf 22 U/L (AST/SGOT) Alanine Aminotransferase 62 U/L (ALT/SGPT) Alkaline Phosphatase 165 U/L Total Protein 5.8 GM/DL Albumin 3.3 GM/DL Physical Exam General General Appearance: Well Developed, Well Nourished, Comfortable, Anxious Eyes Eye Exam: Pupils Equal, Pupils Reactive, Sclera White, Extraocular Movement Intact Ears & Nose Ears & Nose Exam: Nasal Mucosa [place] Throat Throat Exam: Oral Mucosa [place] & Moist, Oral Pharynx Normal Neck Neck Exam: Neck Supple, Trachea Midline Pulmonary Resp Exam: Diminished Breath Sounds Resp Remarks Bilateral wheezing. Cardiology CV Exam: Good Perfusion, Tachycardia Gastrointestinal/Abdomen GI Exam: Soft, Non-Tender, Bowel Sounds Present, Distended Musculoskeletal MS Exam: Joints Intact Integumentary Skin Exam: Warm, Dry Extremeties Extremities Exam: No Edema, Pedal Pulses Palpable Extremeties Remarks Right hip mild tenderness Neurologic Neuro Exam: Alert, Awake, Oriented, Speech Clear, Moving All Extremities, No Focal Deficits Psychiatric Psych Exam: Appropriate Responses VTE Prophylaxis VTE Prophylaxis Meds: Heparin PUD Prophylasis PUD Prophylaxis: Protonix, Carafate Assessment/Plan Problem List: (1) Pulmonary embolism (2) Sepsis (3) Acute asthma exacerbation (4) Hypertension (5) Hyperlipidemia (6) Anemia (7) Abscess of hip, right Plan: hx of infection, currently on abx (8) S/P total hip arthroplasty Assessment/Plan continue with BIPAP PRN Duonebs neublization IV steroids 60 mg IV q 6 Pulmonary input noted on Hycodan PRN cough hx DVT and PE, was on Eliquis now with recurrent PE, failed on Eliquis appreciate cardiology input, continue with heparin gtt + coumadin. noted with drop in HH, will monitor...stable. Checks stools for OB x 3 continue Micafungin, end date 12/[address] for now repeat lactic acid noted 3.0 continue Zithromax ID input noted.. follow CBC sinus tachycardia.. will monitor, on Cardizem Pain management, on [place] and Flexeril PRN noted with elevated blood glucose, on steroids on accuchecks AC/HS with ISS PPI and carafate for GI prophylaxis Hypokalemia resolved. Check CBC with diff CMP and PT/ INR in AM. Condition guarded, multiple admissions, D/W patient. Discussed Condition with: Patient Problem Qualifiers (1) Pulmonary embolism: Qualified Code: I26.99 - Other pulmonary embolism without acute cor pulmonale, unspecified chronicity (2) Sepsis: Qualified Code: A41.9 - Sepsis, due to unspecified organism (3) Acute asthma exacerbation: Qualified Code: J45.901 - Asthma with acute exacerbation, unspecified asthma severity (4) Hypertension: Qualified Code: I10 - Essential hypertension (5) Hyperlipidemia: Qualified Code: E78.5 - Hyperlipidemia, unspecified hyperlipidemia type (6) Anemia: Qualified Code: D64.9 - Anemia, unspecified type (7) S/P total hip arthroplasty: Qualified Code: Z96.641 - Status post total replacement of right hip Myron Woodward MD Dec 28, 2016 10:10
[2016-12-28] MEDS: AZITHROMYCIN INJ 500 MG in SODIUM CHLOR 0.9% 250 ML INJ 250 ML IV SCH (13:00)
[2016-12-28] MEDS: HEPARIN-D5W INJ 250 ML IV SCH (13:10)
--- NOTE | 2016-12-28 14:27 | HHI.PR ---
Addendum to Inpatient Note Additional Information raiological findings dw Dr Lindo: good aligmnet, Xray looks good will complete abx as previously schduled thru 12/31 Marizol Morris MD Dec 28, 2016 14:26
[2016-12-28 15:24] LABS: HEMATOCRIT 26.2 % (39.0-51.0)
[2016-12-28 15:41] LABS: PROTHROMBIN TIME - PATIENT 22.2 SEC (9.8-11.6)
[2016-12-28] MEDS: WARFARIN SOD 5 MG TAB PO SCH (16:03)
--- NOTE | 2016-12-28 19:32 | HHI.PR ---
Subjective Remarks alert afebrile occasional wheeze Objective Vital Signs Date Time Temp Pulse Resp B/P Pulse Ox O2 Delivery O2 Flow Rate FiO2 12/28/16 18:00 103 12/28/16 17:00 122 12/28/16 16:00 144 12/28/16 15:02 22 12/28/16 15:00 102 12/28/16 15:00 97.7 104 20 136/87 97 12/28/16 14:00 100 12/28/16 13:00 112 12/28/16 12:00 114 12/28/16 11:00 97.6 126 24 163/99 98 12/28/16 11:00 121 12/28/16 10:00 130 12/28/16 09:00 140 12/28/16 08:00 97 12/28/16 07:40 100 40 12/28/16 07:15 97.7 97 20 164/90 98 12/28/16 07:15 98 Nasal Cannula 3.00 12/28/16 07:00 85 12/28/16 06:00 85 12/28/16 05:00 149/97 12/28/16 05:00 87 12/28/16 04:55 100 40 12/28/16 04:12 97.5 98 24 160/102 100 12/28/16 04:00 86 12/28/16 03:00 88 12/28/16 02:00 100 12/28/16 01:23 100 40 12/28/16 01:00 104 12/28/16 01:00 148/99 12/28/16 00:00 100 12/28/16 00:00 100 Bi-Pap 40 12/28/16 00:00 96.8 96 20 170/104 99 12/27/16 23:00 100 12/27/16 22:00 96 12/27/16 21:10 98 40 12/27/16 21:00 98 12/27/16 20:52 97 Nasal Cannula 2.00 12/27/16 20:00 Nasal Cannula 3.00 12/27/16 20:00 98 I/O 12/27/16 12/27/16 12/27/16 12/28/16 12/28/16 12/28/16 07:00 15:00 23:00 07:00 15:00 23:00 Intake Total 991 ml 900 ml 1080 ml Output Total 750 ml 900 ml 525 ml Balance 241 ml 0 ml 555 ml Intake Oral 820 ml 800 ml 1080 ml IV Total 171 ml 100 ml Output Urine Total 750 ml 900 ml 525 ml # Voids 1 # Bowel Movements 1 1 Result Diagram: 12/28/16 1445 12/28/16 0420 Objective Remarks GENERAL: SKIN: Warm and dry. HEAD: Atraumatic. Normocephalic. EYES: Pupils equal and round. No scleral icterus. No injection or drainage. ENT: No nasal bleeding or discharge. Mucous membranes pink and moist. NECK: Trachea midline. No JVD. CARDIOVASCULAR: Regular rate and rhythm. RESPIRATORY: No accessory muscle use. scattered wheeze GASTROINTESTINAL: Abdomen soft, non-tender, nondistended. Hepatic and splenic margins not palpable. MUSCULOSKELETAL: Extremities without clubbing, cyanosis, or edema. No obvious deformities. NEUROLOGICAL: Awake and alert. No obvious cranial nerve deficits. Motor grossly within normal limits. Five out of 5 muscle strength in the arms and legs. Normal speech. PSYCHIATRIC: Appropriate mood and affect; insight and judgment normal. Assessment and Plan Assessment and Plan respiratory failure acute PE Asthma PLAN anticoags bronchodilator therapy increase activity conslt hematology recurrent PE Mary Hernandez MD Dec 28, 2016 19:32
[2016-12-28] MEDS: MONTELUKAST SODIUM 10 MG TAB PO SCH (20:57)
[2016-12-28] MEDS: ATORVASTATIN 20 MG TAB PO SCH (20:58)
[2016-12-28] MEDS: MICAFUNGIN IV SCH ×2 (21:05)
[2016-12-28] MEDS: SODIUM CHLORIDE IV SCH ×2 (21:05)
[2016-12-29] VITALS (27 sets, daily range): BP systolic 129–177; BP diastolic 73–106; PULSE 80–126; RESP 20–24; TEMP 97.4–98; O2SAT 96–100
[2016-12-29] MEDS: methylPREDNISolone SOD SUCC 125 MG/2 ML VIAL IV PUSH SCH ×4 (03:01→22:20)
[2016-12-29] MEDS: CYCLOBENZAPRINE HCL 10 MG TAB PO PRN ×2 (03:01→11:30)
[2016-12-29] MEDS: ACETAMINOPHEN/HYDROcodone 325 MG/5 MG TAB PO PRN ×4 (03:01→22:21)
[2016-12-29] MEDS: HYDROcodone 5 MG/HOMATROPINE 1.5 MG SYRUP 5 ML CUP PO PRN ×2 (03:01→23:51)
[2016-12-29] MEDS: DOCUSATE SODIUM 100 MG CAP PO SCH ×2 (03:01→14:35)
[2016-12-29] MEDS: RESP: ALBUTEROL 2.5 MG/IPRATROPIUM 0.5 MG NEB (SCH) NEB ×4 (03:45→15:51)
[2016-12-29 05:04] LABS: INTERNATIONAL NORMALIZED RATIO 1.7 RATIO; PROTHROMBIN TIME - PATIENT 19.4 SEC (9.8-11.6)
[2016-12-29 05:06] LABS: AUTOMATED NEUTROPHIL # 8.2 TH/MM3 (1.8-7.7); BASOPHIL % 0.2 % (0.0-2.0); HEMATOCRIT 23.7 % (39.0-51.0); LYMPH % 5.7 % (9.0-44.0); LYMPHOCYTE # 0.5 TH/MM3 (1.0-4.8); MEAN CELL VOLUME 71.2 FL (80.0-100.0); MEAN CORPUSCULAR HEMOGLOBIN 22.3 PG (27.0-34.0); MEAN CORPUSCULAR HGB CONC 31.3 % (32.0-36.0); MONO % 4.9 % (0.0-8.0); NEUT % 89.2 % (16.0-70.0); PLATELET COUNT 505 TH/MM3 (150-450); RED BLOOD COUNT 3.33 MIL/MM3 (4.50-5.90); RED CELL DISTRIBUTION WIDTH 22.5 % (11.6-17.2); WHITE BLOOD COUNT 9.1 TH/MM3 (4.0-11.0)
[2016-12-29] MEDS: HEPARIN-D5W INJ 250 ML IV SCH (05:14)
[2016-12-29 05:19] LABS: ALT (GPT) 71 U/L (12-78); ANION GAP 11 MEQ/L (5-15); AST (GOT) 24 U/L (15-37); BICARBONATE 26.8 MEQ/L (21.0-32.0); BLOOD UREA NITROGEN 17 MG/DL (7-18); CHLORIDE 102 MEQ/L (98-107); GLOMERULAR FILTRATION RATE 100 ML/MIN (>89); POTASSIUM 3.5 MEQ/L (3.5-5.1); SODIUM (NA) 140 MEQ/L (136-145)
[2016-12-29 05:21] LABS: ALKALINE PHOSPHATASE 154 U/L (45-117); HEMO FLAGS AUTO DIFF; TOTAL BILIRUBIN ADULT 0.2 MG/DL (0.2-1.0)
[2016-12-29] MEDS: INSULIN ASPART SUPPLEMENTAL SCALE SQ SCH ×4 (06:29→22:22)
[2016-12-29] MEDS: SUCRALFATE 1 GM TAB PO SCH ×3 (08:07→18:12)
[2016-12-29] MEDS: POTASSIUM CHLORIDE 10 MEQ CONTROLLED RELEASE TAB PO SCH (08:10)
[2016-12-29] MEDS: DILTIAZEM-CD 180 MG CAP ER PO SCH (08:10)
[2016-12-29] MEDS: PANTOPRAZOLE SOD 40 MG DELAYED RELEASE TAB PO SCH (08:10)
[2016-12-29] MEDS: LORazepam 0.5 MG TAB PO SCH ×2 (08:10→22:20)
[2016-12-29] MEDS: SODIUM CHLORIDE 0.9% FLUSH 10 ML FLUSH IVF SCH (08:10)
[2016-12-29] MEDS: BUDESONIDE-FORMOTEROL 160/4.5 MCG INHALER INH SCH ×2 (08:11→22:22)
[2016-12-29] MEDS: FLUCONAZOLE 200 MG TAB PO SCH (09:00)
[2016-12-29 09:17] LABS: BANDS 1 % (0-6); CORRECTED NUCLEATED RBC 3 /100 WBC (0-0); MYELOCYTES 1 % (0-0); NEUTROPHIL # MANUAL DIFF 8.2 TH/MM3 (1.8-7.7); POLYS (SEG NEUTROPHILS) 88 % (16-70); WBC DIFF SAMPLE 100
[2016-12-29 09:18] LABS: KERATOCYTES OCC (NORMAL); OVALOCYTES 1+ (NORMAL); PLATELET ESTIMATE SMEAR HIGH (NORMAL); PLATELET MORPHOLOGY NORMAL (NORMAL); SCAN/DIFF FINAL DIFF MANUAL
--- NOTE | 2016-12-29 13:05 | HHI.PR ---
Subjective Remarks alert afebrile occasional wheeze Objective Vital Signs Date Time Temp Pulse Resp B/P Pulse Ox O2 Delivery O2 Flow Rate FiO2 12/29/16 12:00 115 12/29/16 11:00 97.4 110 20 129/73 96 12/29/16 11:00 126 12/29/16 10:00 116 12/29/16 09:00 106 12/29/16 08:54 99 Nasal Cannula 3.00 12/29/16 08:00 88 12/29/16 07:15 98 Nasal Cannula 3.00 12/29/16 07:15 97.7 97 20 164/90 98 12/29/16 07:00 88 12/29/16 06:00 80 12/29/16 05:00 102 12/29/16 04:00 87 12/29/16 03:49 159/95 12/29/16 03:48 20 12/29/16 03:40 98 40 12/29/16 03:03 97.7 97 24 169/106 99 12/29/16 03:00 84 12/29/16 02:00 92 12/29/16 01:00 100 12/29/16 00:30 99 40 12/29/16 00:30 165/97 12/29/16 00:04 97.6 106 24 177/103 100 12/29/16 00:00 99 12/28/16 23:00 98 12/28/16 22:00 100 Bi-Pap 40 12/28/16 22:00 100 12/28/16 21:00 102 12/28/16 20:59 99 Nasal Cannula 2.00 12/28/16 20:00 102 12/28/16 20:00 Nasal Cannula 3.00 12/28/16 19:00 107 12/28/16 19:00 98.7 89 20 162/57 100 12/28/16 18:00 103 12/28/16 17:00 122 12/28/16 16:00 144 12/28/16 15:00 102 12/28/16 15:00 97.7 104 20 136/87 97 12/28/16 14:00 100 I/O 12/28/16 12/28/16 12/28/16 12/29/16 12/29/16 12/29/16 07:00 15:00 23:00 07:00 15:00 23:00 Intake Total 900 ml 1080 ml 1068 ml Output Total 900 ml 525 ml 1050 ml Balance 0 ml 555 ml 18 ml Intake Oral 800 ml 1080 ml 800 ml IV Total 100 ml 268 ml Output Urine Total 900 ml 525 ml 1050 ml # Voids 1 # Bowel Movements 1 1 0 Result Diagram: 12/29/1641912/29/16419 Objective Remarks GENERAL: SKIN: Warm and dry. HEAD: Atraumatic. Normocephalic. EYES: Pupils equal and round. No scleral icterus. No injection or drainage. ENT: No nasal bleeding or discharge. Mucous membranes pink and moist. NECK: Trachea midline. No JVD. CARDIOVASCULAR: Regular rate and rhythm. RESPIRATORY: No accessory muscle use. scattered wheeze GASTROINTESTINAL: Abdomen soft, non-tender, nondistended. Hepatic and splenic margins not palpable. MUSCULOSKELETAL: Extremities without clubbing, cyanosis, or edema. No obvious deformities. NEUROLOGICAL: Awake and alert. No obvious cranial nerve deficits. Motor grossly within normal limits. Five out of 5 muscle strength in the arms and legs. Normal speech. PSYCHIATRIC: Appropriate mood and affect; insight and judgment normal. Assessment and Plan Assessment and Plan respiratory failure acute PE Asthma PLAN anticoags bronchodilator therapy increase activity conslt hematology recurrent PE Mary Hernandez MD Dec 29, 2016 13:05
[2016-12-29] MEDS: AZITHROMYCIN INJ 500 MG in SODIUM CHLOR 0.9% 250 ML INJ 250 ML IV SCH (14:34)
[2016-12-29] MEDS: WARFARIN SOD 5 MG TAB PO SCH (16:00)
[2016-12-29 16:28] LABS: FERRITIN 62 NG/ML (26-388); TRANSFERRIN IRON PROFILE 270 MG/DL (200-360)
[2016-12-29] MEDS ORDERED: IRON SUCROSE INJ 200 MG in SODIUM CHLORIDE 0.9% INJ 100 ML IV SCH (17:00)
--- NOTE | 2016-12-29 17:04 | MB ---
cc: ITA JEAN BAPTISTE M.D., EJAZ MD LATIF,CATALINA GARCIA DATE OF CONSULTATION: 12/29/2016. HEMATOLOGY/ONCOLOGY CONSULTATION NOTE REASON FOR CONSULTATION: Patient with newly diagnosed right-sided pulmonary embolism. CURRENT TREATMENT: The patient is presently on a heparin infusion and is being bridged over to warfarin. CHIEF COMPLAINT: Mr. Link reports having developed sudden onset difficulty breathing and right lower chest / right upper quadrant of abdomen abdominal pain. HISTORY OF PRESENT ILLNESS: Mr. 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 He also worked in [employer]. He lives at home with his in the [facility]. Mr. Link tells me that of the past two years he has spent approximately 300 days in the hospital or in emergency rooms. Mr. Link's recent medical history is a very complicated and for my records, I would like to summarize some of the events as described to me from by this patient: Mr. Link reports having suffered a left lung "collapse" in 2014, he reports being hospitalized for this. Shortly after that hospitalization, he was found to have a right lower extremity deep venous thrombosis associated with a left lung pulmonary embolus. He reports being initiated on anticoagulation with warfarin at that time and remained on warfarin up until about September of 2016. The patient reports having had difficulty maintaining his INR within therapeutic range while on warfarin and at times was noted to be significantly supratherapeutic as well. Throughout all of this, Mr. Link reports having severe reactive airway disease. He has a formal diagnosis of asthma and continuously requires corticosteroids. He tells me he has never smoked, never done drugs, never smoked marijuana, but still has severe reactive airway disease. 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 Many of his hospitalizations are secondary to reactive airway disease due to the above. Mr. Link did undergo a fair and thorough hypercoagulable workup in December of 2015 when he was first diagnosed with a pulmonary embolism and lower extremity deep venous thrombosis. It should be noted that he is negative for the prothrombin gene mutation, negative for Factor V Leiden mutation, negative for antiphospholipids, negative for lupus anticoagulant. I do not however see his protein-C and protein-S levels measured and I do not see antithrombin-III levels either. At any rate, in September of 2016, the patient was hospitalized with a supratherapeutic INR without overt bleeding. He was at that time transitioned from warfarin to Xarelto and then later transitioned to Eliquis. Prior to this admission, he was on Eliquis 2.5 milligrams daily. In the days and weeks leading up to this hospitalization for a right-sided pulmonary embolism, the patient did undergo a replacement of his right hip and this was performed on 11/25/2016. He fractured his hip after he slipped in the bathroom. The patient had been having some issues with osteomyelitis as well of that right hip and per the patient, he had been on IV antibiotics in the outpatient setting for management of the osteomyelitis. Apparently after the fracture, the hardware was removed. Despite having undergone recent surgery for hip replacement, he was on intermediate dose anticoagulation with what he described as Eliquis 2.5 milligrams twice daily. He now presents with a right-sided pulmonary embolus not associated with deep venous thrombosis. PAST MEDICAL HISTORY 1. Reactive airway disease complicated by frequent exacerbations. 2. Multiple intubations. 3. History of pneumothorax. 4. History of right lower extremity deep venous thrombosis in December of 2015. 5. Left lung pulmonary embolus December of 2015. 6. Right lung pulmonary embolus in December of 2016. 7. 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 8. Asthma. 9. COPD. 10. Tachycardia. 11. Hyperlipidemia. 12. Obesity. 13. Osteoarthritis. 14. Anxiety and depression. 15. Hypertension. PAST SURGICAL HISTORY: 1. Bilateral hip surgery with a right-sided hip replacement. 2. Appendectomy. 3. Tonsillectomy. 4. PICC line placement. 5. Chest tube placement. ALLERGIES:1 1. TETRACYCLINE. 2. DEMEROL. CURRENT INPATIENT MEDICATIONS: 1. Azithromycin 500 milligrams once daily. 2. Heparin infusion. 3. Micafungin 150 milligrams IV daily. 4. Hydrocodone / acetaminophen 5/325 two tablets q. 4 hours as needed for pain. 5. Atorvastatin 20 milligrams p.o. at bedtime. 6. Symbicort two puffs inhaled q. 12 hours. 7. Cyclobenzaprine 10 milligrams p.o. q. 8 hours as needed for muscle spasms. 8. Diltiazem 360 milligrams daily. 9. Colace 100 milligrams p.o. q. 12. 10. Fluconazole 400 milligrams p.o. daily. 11. Lorazepam 0.5 milligrams p.o. twice a day. 12. Low-dose insulin sliding scale. 13. Methylprednisolone 60 milligrams IV q. 6 hours. 14. Singulair 10 milligrams p.o. at bedtime. 15. Pantoprazole 40 milligrams p.o. daily. 16. Potassium 40 milliequivalents p.o. daily. 17. Warfarin 5 milligrams p.o. daily. FAMILY HISTORY: Father is , of pancreatic cancer. His mom is living, she has valvular heart disease and coronary artery disease. SOCIAL HISTORY: The patient lives at home with his . He has one adult son who was 33. 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 REVIEW OF SYSTEMS: A thirteen point review of systems was obtained and the following are the pertinent positives: CONSTITUTIONAL: Fatigue and weakness, denies weight loss, fevers, chills, night sweats. RETAIL DEPARTMENT RESET: Denies focal sensory or motor deficits, headaches, difficulty swallowing, blurry vision. RESPIRATORY: Reports difficulty breathing, shortness of breath, cough, right-sided pleuritic chest pain. CARDIOVASCULAR: Denies angina-like chest pain, PND, orthopnea. He does report chronic lower extremity swelling on the right side. GI: Denies abdominal pain. Reports abdominal distension. Denies sick jaundice, hematochezia, melena, diarrhea or constipation. : No complaints. LOWER EXTREMITIES: Right-sided leg pain and swelling. PHYSICAL EXAMINATION: VITAL SIGNS: The vital signs reveal a temperature of 97.4 degrees Fahrenheit, heart rate 110 beats minute, blood pressure 129/73, heart rate ranging between 88 and 115 beats per minute, O2 sats 96% on 3 liters nasal cannula. GENERAL PHYSICAL APPEARANCE: Mr. Link is a middle-aged male. He is tall, has a long flowing lieberman and is tattooed. HEAD, EYES, EARS, NOSE, THROAT: Head is atraumatic and normocephalic. Conjunctivae are pale. The sclerae are anicteric. Extraocular muscles intact. Pupils equal, round and reactive to light and accommodation. ORAL EXAM: No pharyngeal erythema. NECK EXAM: No palpable cervical or supraclavicular lymphadenopathy. RESPIRATORY EXAM: Good air movement bilaterally without any rhonchi or wheezes. He does seem to, however, have a raspy wheeze when he exhales but this does not correspond to any rhonchi or rales or wheezes on auscultation of the chest. CARDIOVASCULAR EXAM: Tachycardic. S1, S2. No obvious murmurs, rubs or gallops. Regular rhythm. ABDOMINAL EXAM: Obese belly. Soft. Tender over the right upper quadrant. Positive bowel sounds. No splenomegaly noted. LOWER EXTREMITIES: No pretibial edema on the left side. Right side the patient does have some edema and some redness. RETAIL DEPARTMENT RESET: No focal sensory or motor deficits. LABORATORY FINDINGS: Blood work dated 12/29/2016: PTT is 79 seconds. Chemistries dated 12/29/2016: The sodium is 140, potassium 3.5, chloride 102, bicarbonate 26.8, BUN 17, creatinine 0.81, random glucose 226, calcium 8.9, total bilirubin 0.2, AST 24, ALT 781, alkaline phosphatase 154, albumin 3.3. WBC count 9.1, hemoglobin 7.4 gm/dl, hematocrit 23.7%, MCV 71.2, platelet count is 505,000, positive for myelocytes, nucleated RBCs and ovalocytes as well. IMAGING STUDIES: CT angiogram of the chest dated 12/25/2016: Indicates positive for pulmonary embolus in the right lower lobe with a large filling defect extending into three segmental arteries. Ultrasound Dopplers of the lower extremity dated 12/27/2016: No evidence of deep venous thrombosis. ASSESSMENT: Mr. Link is a 51-year-old male with a complicated recent past medical history. The hematology service has been asked to see him for recurrent pulmonary emboli. Most recently he was found to have a right lower lobe pulmonary embolus not associated with lower extremity deep venous thrombosis. Mr. Link in my assessment has multiple provoking factors for the recurrent venous thromboembolism: He had been under treatment with antifungals for management of a candidal osteomyelitis involving the right hip, just about a month ago he underwent a right hip replacement, he has been on chronic corticosteroids for management of reactive airway disease, and lastly this gentleman has had a history of previous pulmonary emboli as well as the venous thromboses. Though he was on anticoagulation as an outpatient leading up to this venous thromboembolism, it must be mentioned that the dosing of Eliquis was 2.5 milligrams twice a day, which is considered intermediate and more for prophylactic dosing / preventive dosing. It is certainly not a therapeutic dose and certainly would not be sufficient and overcoming all the above-noted prothrombotic factors. At this point it would be worthy to note this individual is negative for a Factor V Leiden mutation, negative for prothrombin gene mutation and at last check 12 months ago had no evidence of circulating lupus anticoagulant or an antiphospholipid antibody. It is yet to be determined if he harbors a protein-C or protein-S deficiency, elevated Factor VIII or is antithrombin III deficient. Given his previous history of recurrent venous thromboembolism it may be prudent to rule out these underlying prothrombotic conditions. It may be possible that this has already been done; however, upon my review of the electronic medical record, I could not find the above-noted studies documented. RECOMMENDATIONS: 1. 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 At this point, it would be appropriate to leave him on heparin and bridge him over to warfarin. I think it may be premature to conclude that he had therapeutic failure on Eliquis because he was not on a therapeutic dose of Eliquis when this pulmonary embolism occurred. Therefore it may be reasonable to rechallenge him with a Factor Xa inhibitor at some point in the future; however, it would be my suggestion that when he is put on an oral Factor Xa inhibitor, he undergo evaluation of the anti-Xa assay to determine the efficacy of the Factor Xa inhibitor. 2. Anemia with severe microcytosis and reactive thrombocytosis: I will recommend checking serum iron studies. Stool for occult blood testing will also be ordered. Should the patient be noted to be iron deficient, he will require oral or intravenous iron replacement therapy. The hematology service will follow along with you. Dr. 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 MD NIKUNJ Mullen/LILIA /3:01 PM /4:35 PM
[2016-12-29] MEDS: RESP: ALBUTEROL 2.5 MG/IPRATROPIUM 0.5 MG NEB (PRN) NEB (20:38)
[2016-12-29] MEDS: IRON SUCROSE INJ 200 MG in SODIUM CHLORIDE 0.9% INJ 100 ML IV SCH (22:00)
[2016-12-29] MEDS: MONTELUKAST SODIUM 10 MG TAB PO SCH (22:20)
[2016-12-29] MEDS: MICAFUNGIN IV SCH ×2 (22:21)
[2016-12-29] MEDS: ATORVASTATIN 20 MG TAB PO SCH (22:21)
[2016-12-29] MEDS: SODIUM CHLORIDE IV SCH ×2 (22:21)
[2016-12-29 23:01] LABS: APTT (PATIENT) 51.2 SEC (24.3-30.1)
[2016-12-30] VITALS (9 sets, daily range): BP systolic 130–159; BP diastolic 80–93; PULSE 90–107; RESP 20–22; TEMP 97.5–98.8; O2SAT 95–98
[2016-12-30] MEDS: methylPREDNISolone SOD SUCC 125 MG/2 ML VIAL IV PUSH SCH ×4 (01:15→21:07)
[2016-12-30] MEDS: HEPARIN-D5W INJ 250 ML IV SCH (01:19)
[2016-12-30] MEDS: RESP: ALBUTEROL 2.5 MG/IPRATROPIUM 0.5 MG NEB (PRN) NEB ×4 (01:54→13:30)
[2016-12-30] MEDS: ACETAMINOPHEN/HYDROcodone 325 MG/5 MG TAB PO PRN ×4 (05:36→21:07)
[2016-12-30] MEDS: DOCUSATE SODIUM 100 MG CAP PO SCH ×2 (05:36→13:26)
[2016-12-30] MEDS: HYDROcodone 5 MG/HOMATROPINE 1.5 MG SYRUP 5 ML CUP PO PRN ×2 (05:36→14:48)
[2016-12-30] MEDS: INSULIN ASPART SUPPLEMENTAL SCALE SQ SCH ×4 (05:44→21:08)
[2016-12-30 06:14] LABS: APTT (PATIENT) 69.6 SEC (24.3-30.1); INTERNATIONAL NORMALIZED RATIO 3.7 RATIO; PROTHROMBIN TIME - PATIENT 43.7 SEC (9.8-11.6)
--- NOTE | 2016-12-30 08:35 | HHI.PR ---
Subjective History of Present Illness Patient seen on 12/29/16. have SOB cough and sever wheezing Have Pulmonary embolism on heparin gtt. low potassium resolved and Leukocytosis down trend on coumadin 5 mg PO Daily.. inr 1.7 ID / Cardiology input noted. Review of Systems Constitutional Constitutional: Fatigue, Weakness Pulmonary Respiratory: Coughing, Shortness of Breath, Wheezing Musculoskeletal MS Remarks Right Hip Pain. Vitals/Results Intake & Output 12/29/16 12/29/16 12/30/16 15:00 23:00 07:00 Intake Total 2099 ml 678 ml Output Total 1600 ml 1000 ml Balance 499 ml -322 ml Intake Oral 1800 ml 600 ml IV Total 299 ml 78 ml Output Urine Total 1600 ml 1000 ml # Bowel Movements 1 0 Vital Signs Vital Signs Date Time Temp Pulse Resp B/P Pulse Ox O2 Delivery O2 Flow Rate FiO2 12/30/16 04:40 98.0 98 20 130/80 98 12/30/16 04:40 Bi-Pap 40 12/30/16 01:54 98 40 12/30/16 00:30 98.8 94 20 136/89 95 12/30/16 00:30 Bi-Pap 40 12/29/16 20:39 98 Nasal Cannula 2.00 12/29/16 20:00 97.9 109 24 153/93 99 12/29/16 20:00 Nasal Cannula 2.00 12/29/16 20:00 113 12/29/16 17:30 97.7 106 20 156/90 99 12/29/16 16:00 116 12/29/16 15:30 Nasal Cannula 3.00 12/29/16 15:00 98.0 115 20 146/95 97 12/29/16 15:00 106 12/29/16 14:00 122 12/29/16 13:00 108 12/29/16 12:00 115 12/29/16 11:00 97.4 110 20 129/73 96 12/29/16 11:00 126 12/29/16 10:00 116 12/29/16 09:00 106 12/29/16 08:54 99 Nasal Cannula 3.00 CBC/BMP: 12/29/16 0420 12/29/16 0420 Lab Results Laboratory Tests Test 12/29/16 12/29/16 12/30/16 12:00 22:00 05:30 Activated Partial 79.0 SEC 51.2 SEC 69.6 SEC Thromboplast Time Prothrombin Time 43.7 SEC Prothromb Time International 3.7 RATIO Ratio Microbiology Microbiology 12/29/16 Stool Occult Blood (STEFFANIE) - Final, Complete HEMOCCULT NEGATIVE 12/29/16 Stool Occult Blood (STEFFANIE) - Final, Complete HEMOCCULT NEGATIVE Physical Exam General General Appearance: Well Developed, Well Nourished, Comfortable, Anxious Eyes Eye Exam: Pupils Equal, Pupils Reactive, Sclera White, Extraocular Movement Intact Ears & Nose Ears & Nose Exam: Nasal Mucosa [place] Throat Throat Exam: Oral Mucosa [place] & Moist, Oral Pharynx Normal Neck Neck Exam: Neck Supple, Trachea Midline Pulmonary Resp Exam: Diminished Breath Sounds Resp Remarks Bilateral wheezing. Cardiology CV Exam: Good Perfusion, Tachycardia Gastrointestinal/Abdomen GI Exam: Soft, Non-Tender, Bowel Sounds Present, Distended Musculoskeletal MS Exam: Joints Intact Integumentary Skin Exam: Warm, Dry Extremeties Extremities Exam: No Edema, Pedal Pulses Palpable Extremeties Remarks Right hip mild tenderness Neurologic Neuro Exam: Alert, Awake, Oriented, Speech Clear, Moving All Extremities, No Focal Deficits Psychiatric Psych Exam: Appropriate Responses VTE Prophylaxis VTE Prophylaxis Meds: Heparin PUD Prophylasis PUD Prophylaxis: Protonix, Carafate Assessment/Plan Problem List: (1) Pulmonary embolism (2) Sepsis (3) Acute asthma exacerbation (4) Hypertension (5) Hyperlipidemia (6) Anemia (7) Abscess of hip, right Plan: hx of infection, currently on abx (8) S/P total hip arthroplasty Assessment/Plan continue with BIPAP PRN Duonebs neublization IV steroids 60 mg IV q 6 Pulmonary input noted on Hycodan PRN cough hx DVT and PE, was on Eliquis now with recurrent PE, failed on Eliquis appreciate cardiology input, continue with heparin gtt + coumadin... INR 1.7 noted with drop in HH, will monitor...stable. Checks stools for OB x 3 continue Micafungin, end date 12/[address] for now repeat lactic acid noted 3.0 continue Zithromax ID input noted.. follow CBC sinus tachycardia.. will monitor, on Cardizem Pain management, on George and Flexeril PRN noted with elevated blood glucose, on steroids on accuchecks AC/HS with ISS PPI and carafate for GI prophylaxis Hypokalemia resolved. Check CBC with diff CMP and PT/ INR in AM. Condition guarded, multiple admissions, D/W patient. Discussed Condition with: Patient Problem Qualifiers (1) Pulmonary embolism: Qualified Code: I26.99 - Other pulmonary embolism without acute cor pulmonale, unspecified chronicity (2) Sepsis: Qualified Code: A41.9 - Sepsis, due to unspecified organism (3) Acute asthma exacerbation: Qualified Code: J45.901 - Asthma with acute exacerbation, unspecified asthma severity (4) Hypertension: Qualified Code: I10 - Essential hypertension (5) Hyperlipidemia: Qualified Code: E78.5 - Hyperlipidemia, unspecified hyperlipidemia type (6) Anemia: Qualified Code: D64.9 - Anemia, unspecified type (7) S/P total hip arthroplasty: Qualified Code: Z96.641 - Status post total replacement of right hip Myron Woodward MD Dec 30, 2016 08:35
[2016-12-30] MEDS: LORazepam 0.5 MG TAB PO SCH ×2 (08:51→21:07)
[2016-12-30] MEDS: DILTIAZEM-CD 180 MG CAP ER PO SCH (08:51)
[2016-12-30] MEDS: SUCRALFATE 1 GM TAB PO SCH ×3 (08:52→16:32)
[2016-12-30] MEDS: SODIUM CHLORIDE 0.9% FLUSH 10 ML FLUSH IVF SCH (08:52)
[2016-12-30] MEDS: FLUCONAZOLE 200 MG TAB PO SCH (08:52)
[2016-12-30] MEDS: POTASSIUM CHLORIDE 10 MEQ CONTROLLED RELEASE TAB PO SCH (08:52)
[2016-12-30] MEDS: BUDESONIDE-FORMOTEROL 160/4.5 MCG INHALER INH SCH ×2 (08:53→21:12)
[2016-12-30] MEDS: IRON SUCROSE INJ 200 MG in SODIUM CHLORIDE 0.9% INJ 100 ML IV SCH (08:53)
[2016-12-30] MEDS: PANTOPRAZOLE SOD 40 MG DELAYED RELEASE TAB PO SCH (08:53)
--- NOTE | 2016-12-30 12:28 | PD.ONC.PN ---
Subjective Subjective Remarks Afebrile overnight. patient was on bipap overnight but is comfortable on nasal cannula today. No bleeding. tolerating heparin drip. Objective Data Date Time Temp Pulse Resp B/P Pulse Ox O2 Delivery O2 Flow Rate FiO2 12/30/16 09:19 97 Nasal Cannula 2.00 12/30/16 08:00 Nasal Cannula 2.00 12/30/16 08:00 97.5 90 20 159/93 97 12/30/16 08:00 96 12/30/16 04:40 98.0 98 20 130/80 98 12/30/16 04:40 Bi-Pap 40 12/30/16 01:54 98 40 12/30/16 00:30 98.8 94 20 136/89 95 12/30/16 00:30 Bi-Pap 40 12/29/16 20:39 98 Nasal Cannula 2.00 12/29/16 20:00 97.9 109 24 153/93 99 12/29/16 20:00 Nasal Cannula 2.00 12/29/16 20:00 113 12/29/16 17:30 97.7 106 20 156/90 99 12/29/16 16:00 116 12/29/16 15:30 Nasal Cannula 3.00 12/29/16 15:00 98.0 115 20 146/95 97 12/29/16 15:00 106 12/29/16 14:00 122 12/29/16 13:00 108 12/30/16 12/30/16 12/30/16 07:00 15:00 23:00 Intake Total 678 ml Output Total 1000 ml Balance -322 ml Result Diagram: 12/29/16 0420 12/29/16 0420 Laboratory Results Laboratory Tests Test 12/29/16 12/30/16 22:00 05:30 Activated Partial 51.2 SEC 69.6 SEC Thromboplast Time Prothrombin Time 43.7 SEC Prothromb Time International 3.7 RATIO Ratio Culture Results Microbiology Date/Time Procedure Status Source Growth 12/29/16 15:30 Stool Occult Blood (STEFFANIE) - Final Complete Stool Stool HEMOCCULT NEGATIVE 12/29/16 23:30 Stool Occult Blood (STEFFANIE) - Final Complete Stool Stool HEMOCCULT NEGATIVE Administered Medications Medications (Trade) Dose Ordered Sig/Gabi Route PRN Reason Start Time Stop Time Status Last Admin Dose Admin Docusate Sodium 100 mg 100 mg Q12H PO 12/25/16 14:45 12/30/16 05:36 Azithromycin 500 mg/Sodium Chloride 250 ml @ 250 mls/hr Q24H IV 12/26/16 14:00 12/29/16 14:34 Micafungin Sodium/ Sodium Chloride (Mycamine Inj/NS Inj) 100 ml @ 100 mls/hr Q24H IV 12/25/16 21:00 12/31/16 20:59 12/29/16 22:21 Sodium Chloride (NS Flush) DAILY IVF 12/26/16 09:00 12/30/16 08:52 Heparin Sodium (Porcine) (Heparin Central Flush) DAILY IV FLUSH 12/26/16 09:00 12/29/16 08:09 Heparin Sodium (Porcine) (Heparin Central Flush) UNSCH PRN IV FLUSH SEE PROTOCOL 12/26/16 08:15 12/30/16 06:10 Atorvastatin Calcium (Lipitor) 20 mg HS PO 12/26/16 21:00 12/29/16 22:21 Budesonide/ Formoterol Fumarate (Symbicort 160-4.5 Inh) 2 puff Q12HR INH 12/26/16 09:00 12/30/16 08:53 Diltiazem HCl (Cardizem Cd) 360 mg DAILY PO 12/26/16 09:00 12/30/16 08:51 Montelukast Sodium (Singulair) 10 mg HS PO 12/26/16 21:00 12/29/16 22:20 Sucralfate (Carafate) 1 gm TID PO 12/26/16 09:00 12/30/16 08:52 Cyclobenzaprine HCl (Flexeril) 10 mg Q8H PRN PO spasms 12/26/16 08:15 12/29/16 11:30 Pantoprazole Sodium (Protonix) 40 mg DAILY PO 12/26/16 09:00 12/30/16 08:53 Lorazepam (Ativan) 0.5 mg BID PO 12/26/16 09:00 12/30/16 08:51 Acetaminophen/ Hydrocodone Bitart ([place] 5-325 Mg) 2 tab Q4H PRN PO PAIN SCALE 5 TO 10 12/26/16 08:30 12/30/16 10:25 Hydrocodone Bit/ Homatropine Methylb (Hycodan Liq) 5 ml Q6H PRN PO COUGH 12/26/16 08:30 12/30/16 05:36 Fluconazole (Diflucan) 400 mg DAILY PO 12/27/16 09:00 12/30/16 08:52 Potassium Chloride (KCl) 60 meq DAILY PO 12/27/16 11:15 12/30/16 08:52 Warfarin Sodium (Coumadin) 5 mg DAILY@1600 PO 12/27/16 16:30 Hold 12/29/16 16:00 Methylprednisolone Sodium Succinate 60 mg 60 mg Q6H IV PUSH 12/27/16 20:00 12/30/16 08:53 Iron Sucrose/ Sodium Chloride (Venofer Inj/NS Inj) 110 ml @ 110 mls/hr DAILY IV 12/29/16 19:00 12/31/16 09:59 12/30/16 08:53 Objective Remarks GENERAL: Chronically ill male, sitting up in bed watching TV SKIN: Warm and dry. HEAD: Normocephalic. EYES: No injection or drainage. NECK: Supple, trachea midline. CARDIOVASCULAR: Regular rate and rhythm RESPIRATORY: scattered wheeze. prolonged expiratory phase. on 2L O2 via NC GASTROINTESTINAL: Abdomen soft, non-tender, nondistended. EXTREMITIES: No cyanosis. NEUROLOGICAL: No obvious focal deficit. Awake, alert, and oriented x3. Assessment/Plan Assessment 51-year-old male with recurrent pulmonary emboli. --was on Eliquis 2.5mg BID outpatient (prophylactic dosing) h/o Reactive airway disease complicated by frequent exacerbations. Multiple intubations pneumothorax. right lower extremity deep venous thrombosis in December of 2015. Left lung pulmonary embolus December of 2015. Right lung pulmonary embolus in December of 2016. 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 Plan 1. recurrent pulmonary emboli: patient INR 3.7 today. will d/c heparin gtt and place Coumadin on hold. monitor INR daily 2. Microcytic anemia: stool Hemoccult is negative. iron studies consistent with DENY, IV Venofer 3 bags ordered on 12/29. Attending Statement The exam, history, and the medical decision-making described in the above note were completed with the assistance of the mid-level provider. I reviewed and agree with the findings presented. I attest that I had a [id number] encounter with the patient on the same day, and personally performed and documented my assessment and findings in the medical record. supratherapeutic INR today. Hold AC Iron deficient. getting IV iron Further drop in Hb. At this point will transfuse 1 unit of pRBC Hemoccult negative d/w Berenice Scherer Dec 30, 2016 12:27 Reuben Cali MD Dec 30, 2016 23:28
--- NOTE | 2016-12-30 12:49 | HHI.IDPN ---
Subjective Subjective Remarks co wheezing + dry cough co RLE edema afebrile Antibiotics azithro micafungin fluc Allergies: Coded Allergies: Tetracycline (Verified Allergy, Severe, throat swells, 12/25/16) Demerol (Verified Allergy, Intermediate, hallucinations, 12/25/16) Objective . Vital Signs Date Time Temp Pulse Resp B/P Pulse Ox O2 Delivery O2 Flow Rate FiO2 12/30/16 09:19 97 Nasal Cannula 2.00 12/30/16 08:00 Nasal Cannula 2.00 12/30/16 08:00 97.5 90 20 159/93 97 12/30/16 08:00 96 12/30/16 04:40 98.0 98 20 130/80 98 12/30/16 04:40 Bi-Pap 40 12/30/16 01:54 98 40 12/30/16 00:30 98.8 94 20 136/89 95 12/30/16 00:30 Bi-Pap 40 12/29/16 20:39 98 Nasal Cannula 2.00 12/29/16 20:00 97.9 109 24 153/93 99 12/29/16 20:00 Nasal Cannula 2.00 12/29/16 20:00 113 12/29/16 17:30 97.7 106 20 156/90 99 12/29/16 16:00 116 12/29/16 15:30 Nasal Cannula 3.00 12/29/16 15:00 98.0 115 20 146/95 97 12/29/16 15:00 106 12/29/16 14:00 122 12/29/16 13:00 108 12/29/16 12/29/16 12/30/16 15:00 23:00 07:00 Intake Total 2099 ml 678 ml Output Total 1600 ml 1000 ml Balance 499 ml -322 ml Intake Oral 1800 ml 600 ml IV Total 299 ml 78 ml Output Urine Total 1600 ml 1000 ml # Bowel Movements 1 0 . Laboratory Tests Test 12/28/16 12/29/16 14:45 04:20 Hemoglobin 7.8 GM/DL 7.4 GM/DL Hematocrit 26.2 % 23.7 % White Blood Count 9.1 TH/MM3 Red Blood Count 3.33 MIL/MM3 Mean Corpuscular Volume 71.2 FL Mean Corpuscular Hemoglobin 22.3 PG Mean Corpuscular Hemoglobin 31.3 % Concent Red Cell Distribution Width 22.5 % Platelet Count 505 TH/MM3 Mean Platelet Volume 6.7 FL Neutrophils (%) (Auto) 89.2 % Lymphocytes (%) (Auto) 5.7 % Monocytes (%) (Auto) 4.9 % Eosinophils (%) (Auto) 0.0 % Basophils (%) (Auto) 0.2 % Neutrophils # (Auto) 8.2 TH/MM3 Lymphocytes # (Auto) 0.5 TH/MM3 Monocytes # (Auto) 0.4 TH/MM3 Eosinophils # (Auto) 0.0 TH/MM3 Basophils # (Auto) 0.0 TH/MM3 CBC Comment AUTO DIFF Differential Total Cells 100 Counted Neutrophils % (Manual) 88 % Band Neutrophils % 1 % Lymphocytes % 5 % Monocytes % 5 % Neutrophils # (Manual) 8.2 TH/MM3 Myelocytes 1 % Nucleated Red Blood Cells 3 /100 WBC Differential Comment FINAL DIFF MANUAL Platelet Estimate HIGH Platelet Morphology Comment NORMAL Ovalocytes 1+ Keratocytes OCC Laboratory Tests Test 12/29/16 04:20 Sodium Level 140 MEQ/L Potassium Level 3.5 MEQ/L Chloride Level 102 MEQ/L Carbon Dioxide Level 26.8 MEQ/L Anion Gap 11 MEQ/L Blood Urea Nitrogen 17 MG/DL Creatinine 0.81 MG/DL Estimat Glomerular Filtration 100 ML/MIN Rate Random Glucose 226 MG/DL Calcium Level 8.9 MG/DL Iron Level 10 MCG/DL Total Iron Binding Capacity 378 MCG/DL Percent Iron Saturation 2.6 % Ferritin 62 NG/ML Total Bilirubin 0.2 MG/DL Aspartate Amino Transf 24 U/L (AST/SGOT) Alanine Aminotransferase 71 U/L (ALT/SGPT) Alkaline Phosphatase 154 U/L Total Protein 5.7 GM/DL Albumin 3.3 GM/DL Microbiology Date/Time Procedure Status Source Growth 12/29/16 15:30 Stool Occult Blood (STEFFANIE) - Final Complete Stool Stool HEMOCCULT NEGATIVE 12/29/16 23:30 Stool Occult Blood (STEFFANIE) - Final Complete Stool Stool HEMOCCULT NEGATIVE Imaging Last Impressions Lower Extremity Ultrasound 12/27/16 0000 Signed Impressions: Service Date/Time: Tuesday, December 27, 2016 10:06 - CONCLUSION: Normal examination. Glendy Harry MD Hip X-Ray 12/26/16 0000 Signed Impressions: Service Date/Time: December 16:04 - CONCLUSION: Migration of the greater trochanteric screw laterally with separation of the side plate by approximately 7-8 mm. Glendy Harry MD Femur X-Ray 12/26/16 0000 Signed Impressions: Service Date/Time: December 16:04 - CONCLUSION: Migration of the screw laterally at the level of the greater trochanteric component with separation of the plate by 7-8 mm. Glendy Harry MD Chest X-Ray 12/25/16 1238 Signed Impressions: Service Date/Time: Sunday, December 25, 2016 13:27 - CONCLUSION: No focal infiltrates seen. Adriel Thompson MD CT Angiography 12/25/16 0000 Signed Impressions: Service Date/Time: Sunday, December 25, 2016 14:45 - CONCLUSION: Positive for pulmonary embolism in the right lower lobe with a large filling defect extending into at least 3 segmental arteries. No evidence of pleural effusion. Adriel Thompson MD Physical Exam CONSTITUTIONAL/GENERAL: This is an obese patient, in no apparent distress. SKIN: No jaundice, rashes, or lesions. Skin temperature appropriate. Not diaphoretic. EYES: No scleral icterus. ENT:Oral mucosae without visible erythema, exudates, masses, or lesions. CARDIOVASCULAR: Regular rate and rhythm without murmurs, gallops, or rubs. No JVD. Peripheral pulses symmetric. RESPIRATORY/CHEST: Symmetric, unlabored respirations. Some wheezing to auscultation. Breath sounds equal bilaterally. No rales, or rhonchi. GASTROINTESTINAL: Abdomen soft, globular non-tender, distended. No hepato- splenomegaly, or palpable masses. No guarding. Bowel sounds present. MUSCULOSKELETAL: Extremities without clubbing, cyanosis, 3-4 + tight edema non pitting RLE Incision over R hip completely healed, but with some edeme noted arond it no erythema, + edema, Decreased ROM 2/2 pain NEUROLOGICAL: Awake and alert. Motor and sensory grossly within normal limits. Follows commands. Cognitively sharp. Moves all extremities. PSYCHIATRIC: calm cooperative Assessment & Plan Remarks Prosthetic hip infx, R hip, C.albicans - sp periprosthetic fx - Xray showed Migration of the greater trochanteric screw laterally with separation of the side plate by approximately 7-8 mm [address] findings dw Dr Guicho: good aligmnet, Xray looks good Here for asthma attack Large RLL PE Edma of RLE but on US no e/o DVT still clinically high suspecioun of RLE DVT ?iliac - dc micafungin - dc fluconazol - dc Marizol Hernandes Dr, MD Dec 30, 2016 12:49
--- NOTE | 2016-12-30 13:42 | PD.CARD.PN ---
Subjective Subjective Remarks Still c/o SOB, no CP, R mid lateral abdominal chest discomfort Objective Medications Current Medications Medications (Trade) Dose Ordered Sig/Gabi Route Start Time Stop Time Status Last Admin (Zofran Inj) 4 mg Q6H PRN IVP 12/25/16 14:45 (Colace) 100 mg Q12H PO 12/25/16 14:45 12/30/16 13:26 (Narcan Inj) 0.4 mg UNSCH PRN IV 12/25/16 14:45 (NS Flush) DAILY IVF 12/26/16 09:00 12/30/16 08:52 (Heparin Central Flush) DAILY IV FLUSH 12/26/16 09:00 12/29/16 08:09 (NS Flush) UNSCH PRN IVF 12/26/16 08:15 (Heparin Central Flush) UNSCH PRN IV FLUSH 12/26/16 08:15 12/30/16 06:10 (NS Flush) UNSCH PRN IVF 12/26/16 08:15 (Lipitor) 20 mg HS PO 12/26/16 21:00 12/29/16 22:21 (Symbicort 160-4.5 Inh) 2 puff Q12HR INH 12/26/16 09:00 12/30/16 08:53 (Cardizem Cd) 360 mg DAILY PO 12/26/16 09:00 12/30/16 08:51 (Singulair) 10 mg HS PO 12/26/16 21:00 12/29/16 22:20 (Carafate) 1 gm TID PO 12/26/16 09:00 12/30/16 13:26 (Flexeril) 10 mg Q8H PRN PO 12/26/16 08:15 12/29/16 11:30 (Protonix) 40 mg DAILY PO 12/26/16 09:00 12/30/16 08:53 (D50w (Vial) Inj) 25 ml UNSCH PRN IV PUSH 12/26/16 08:15 (Glucagon Inj) 1 mg UNSCH PRN OTHER 12/26/16 08:15 (Milk Of Magnesia Liq) 30 ml DAILY PRN PO 12/26/16 08:15 (Ativan) 0.5 mg BID PO 12/26/16 09:00 12/30/16 08:51 ([place] 5-325 Mg) 2 tab Q4H PRN PO 12/26/16 08:30 12/30/16 10:25 (Hycodan Liq) 5 ml Q6H PRN PO 12/26/16 08:30 12/30/16 05:36 (KCl) 60 meq DAILY PO 12/27/16 11:15 12/30/16 08:52 (Coumadin) 5 mg DAILY@1600 PO 12/27/16 16:30 Hold 12/29/16 16:00 Methylprednisolone Sodium Succinate 60 mg 60 mg Q6H IV PUSH 12/27/16 20:00 12/30/16 13:26 (Venofer Inj/NS Inj) 110 ml @ 110 mls/hr DAILY IV 12/29/16 19:00 12/31/16 09:59 12/30/16 08:53 Vital Signs / I&O Vital Signs Date Time Temp Pulse Resp B/P Pulse Ox O2 Delivery O2 Flow Rate FiO2 12/30/16 12:00 97.8 107 22 146/84 97 12/30/16 09:19 97 Nasal Cannula 2.00 12/30/16 08:00 Nasal Cannula 2.00 12/30/16 08:00 97.5 90 20 159/93 97 12/30/16 08:00 96 12/30/16 04:40 98.0 98 20 130/80 98 12/30/16 04:40 Bi-Pap 40 12/30/16 01:54 98 40 12/30/16 00:30 98.8 94 20 136/89 95 12/30/16 00:30 Bi-Pap 40 12/29/16 20:39 98 Nasal Cannula 2.00 12/29/16 20:00 97.9 109 24 153/93 99 12/29/16 20:00 Nasal Cannula 2.00 12/29/16 20:00 113 12/29/16 17:30 97.7 106 20 156/90 99 12/29/16 16:00 116 12/29/16 15:30 Nasal Cannula 3.00 12/29/16 15:00 98.0 115 20 146/95 97 12/29/16 15:00 106 12/29/16 14:00 122 I/O 12/29/16 12/29/16 12/29/16 12/30/16 12/30/1612/30/17 07:00 15:00 23:00 07:00 15:00 23:00 Intake Total 1068 ml 2099 ml 678 ml Output Total 1050 ml 1600 ml 1000 ml Balance 18 ml 499 ml -322 ml Intake Oral 800 ml 1800 ml 600 ml IV Total 268 ml 299 ml 78 ml Output Urine Total 1050 ml 1600 ml 1000 ml # Bowel Movements 0 1 0 Physical Exam GENERAL: In NAD SKIN: Warm and dry. HEAD: Normocephalic. EYES: No scleral icterus. No injection or drainage. NECK: Supple, trachea midline. No JVD or lymphadenopathy. CARDIOVASCULAR: Regular rate and rhythm without murmurs, gallops, or rubs. RESPIRATORY: Bilat wheezing wheezes. No accessory muscle use. GASTROINTESTINAL: Abdomen soft, non-tender, nondistended. MUSCULOSKELETAL: No cyanosis, RLE edema. Laboratory Laboratory Tests Test 12/29/16 12/30/16 22:00 05:30 Activated Partial 51.2 SEC 69.6 SEC Thromboplast Time Prothrombin Time 43.7 SEC Prothromb Time International 3.7 RATIO Ratio Imaging Last Impressions Lower Extremity Ultrasound 12/27/16 0000 Signed Impressions: Service Date/Time: Tuesday, December 27, 2016 10:06 - CONCLUSION: Normal examination. Glendy Harry MD Hip X-Ray 12/26/16 0000 Signed Impressions: Service Date/Time: December 16:04 - CONCLUSION: Migration of the greater trochanteric screw laterally with separation of the side plate by approximately 7-8 mm. Glendy Harry MD Femur X-Ray 12/26/16 0000 Signed Impressions: Service Date/Time: December 16:04 - CONCLUSION: Migration of the screw laterally at the level of the greater trochanteric component with separation of the plate by 7-8 mm. Glendy Harry MD Chest X-Ray 12/25/16 1238 Signed Impressions: Service Date/Time: Sunday, December 25, 2016 13:27 - CONCLUSION: No focal infiltrates seen. Adriel Thompson MD CT Angiography 12/25/16 0000 Signed Impressions: Service Date/Time: Sunday, December 25, 2016 14:45 - CONCLUSION: Positive for pulmonary embolism in the right lower lobe with a large filling defect extending into at least 3 segmental arteries. No evidence of pleural effusion. Adriel Thompson MD Assessment and Plan Problem List: (1) Pulmonary embolism (2) S/P total hip arthroplasty (3) Acute asthma exacerbation (4) Acute hypercapnic respiratory failure (5) Hypertension (6) Hyperlipidemia Assessment and Plan Continue anticoagulation including Coumadin. Continue tx for asthma exacerbation incl steroids as per Dr. Hernandez. Sinus tachycardia likely related to PE and bronchodilators. Continue monitoring. Increase activity as tolerated. Problem Qualifiers (1) Pulmonary embolism: Qualified Code: I26.99 - Other pulmonary embolism without acute cor pulmonale, unspecified chronicity (2) Acute asthma exacerbation: Qualified Code: J45.901 - Asthma with acute exacerbation, unspecified asthma severity (3) Hypertension: Qualified Code: I10 - Essential hypertension (4) Hyperlipidemia: Qualified Code: E78.5 - Hyperlipidemia, unspecified hyperlipidemia type Adam Moody MD Dec 30, 2016 13:42
--- NOTE | 2016-12-30 15:32 | HHI.PR ---
Subjective History of Present Illness Patient have SOB cough and sever wheezing Have Pulmonary embolism on heparin gtt. and coumadin 5 mg PO Daily.. INR 3.7 today hold coumadin and Discontinue heparin gtt ID / Cardiology input noted. Abdominal distension check abdominal X- ray have leg swelling Start Lasix 40 mg IV Daily. Review of Systems Constitutional Constitutional: Fatigue, Weakness Pulmonary Respiratory: Coughing, Shortness of Breath, Wheezing Musculoskeletal MS Remarks Right Hip Pain. Vitals/Results Intake & Output 12/29/16 12/29/16 12/30/16 15:00 23:00 07:00 Intake Total 2099 ml 678 ml Output Total 1600 ml 1000 ml Balance 499 ml -322 ml Intake Oral 1800 ml 600 ml IV Total 299 ml 78 ml Output Urine Total 1600 ml 1000 ml # Bowel Movements 1 0 Vital Signs Vital Signs Date Time Temp Pulse Resp B/P Pulse Ox O2 Delivery O2 Flow Rate FiO2 12/30/16 12:00 97.8 107 22 146/84 97 12/30/16 09:19 97 Nasal Cannula 2.00 12/30/16 08:00 Nasal Cannula 2.00 12/30/16 08:00 97.5 90 20 159/93 97 12/30/16 08:00 96 12/30/16 04:40 98.0 98 20 130/80 98 12/30/16 04:40 Bi-Pap 40 12/30/16 01:54 98 40 12/30/16 00:30 98.8 94 20 136/89 95 12/30/16 00:30 Bi-Pap 40 12/29/16 20:39 98 Nasal Cannula 2.00 12/29/16 20:00 97.9 109 24 153/93 99 12/29/16 20:00 Nasal Cannula 2.00 12/29/16 20:00 113 12/29/16 17:30 97.7 106 20 156/90 99 12/29/16 16:00 116 12/29/16 15:30 Nasal Cannula 3.00 CBC/BMP: 12/29/16 0420 12/29/16 0420 Lab Results Laboratory Tests Test 12/29/16 12/30/16 22:00 05:30 Activated Partial 51.2 SEC 69.6 SEC Thromboplast Time Prothrombin Time 43.7 SEC Prothromb Time International 3.7 RATIO Ratio Microbiology Microbiology 12/29/16 Stool Occult Blood (STEFFANIE) - Final, Complete HEMOCCULT NEGATIVE 12/29/16 Stool Occult Blood (STEFFANIE) - Final, Complete HEMOCCULT NEGATIVE Physical Exam General General Appearance: Well Developed, Well Nourished, Comfortable, Anxious Eyes Eye Exam: Pupils Equal, Pupils Reactive, Sclera White, Extraocular Movement Intact Ears & Nose Ears & Nose Exam: Nasal Mucosa [place] Throat Throat Exam: Oral Mucosa [place] & Moist, Oral Pharynx Normal Neck Neck Exam: Neck Supple, Trachea Midline Pulmonary Resp Exam: Diminished Breath Sounds Resp Remarks Bilateral wheezing. Cardiology CV Exam: Good Perfusion, Tachycardia Gastrointestinal/Abdomen GI Exam: Soft, Non-Tender, Bowel Sounds Present, Distended Musculoskeletal MS Exam: Joints Intact Integumentary Skin Exam: Warm, Dry Extremeties Extremities Exam: No Edema, Pedal Pulses Palpable, Moderate Edema Extremeties Remarks Right hip mild tenderness Neurologic Neuro Exam: Alert, Awake, Oriented, Speech Clear, Moving All Extremities, No Focal Deficits Psychiatric Psych Exam: Appropriate Responses VTE Prophylaxis VTE Prophylaxis Meds: Heparin PUD Prophylasis PUD Prophylaxis: Protonix, Carafate Assessment/Plan Problem List: (1) Pulmonary embolism (2) Sepsis (3) Acute asthma exacerbation (4) Hypertension (5) Hyperlipidemia (6) Anemia (7) Abscess of hip, right Plan: hx of infection, currently on abx (8) S/P total hip arthroplasty Assessment/Plan continue with BIPAP PRN Duonebs neublization IV steroids 60 mg IV q 6 Pulmonary input noted on Hycodan PRN cough hx DVT and PE, was on Eliquis now with recurrent PE, failed on Eliquis appreciate cardiology input, on heparin gtt. and coumadin 5 mg PO Daily.. INR 3.7 today hold coumadin and Discontinue heparin gtt no obvious bleeding. noted with drop in HH, will monitor...stable. Checks stools for OB x 3 continue Micafungin, end date 12/[address] for now repeat lactic acid noted 3.0 continue Zithromax ID input noted.. follow CBC sinus tachycardia.. will monitor, on Cardizem Pain management, on [place] and Flexeril PRN noted with elevated blood glucose, on steroids on accuchecks AC/HS with ISS PPI and carafate for GI prophylaxis Hypokalemia resolved. Abdominal distension check abdominal X- ray have leg swelling Start Lasix 40 mg IV Daily. Check CBC with diff CMP and PT/ INR in AM. Condition guarded, multiple admissions, D/W patient. Discussed Condition with: Patient Problem Qualifiers (1) Pulmonary embolism: Qualified Code: I26.99 - Other pulmonary embolism without acute cor pulmonale, unspecified chronicity (2) Sepsis: Qualified Code: A41.9 - Sepsis, due to unspecified organism (3) Acute asthma exacerbation: Qualified Code: J45.901 - Asthma with acute exacerbation, unspecified asthma severity (4) Hypertension: Qualified Code: I10 - Essential hypertension (5) Hyperlipidemia: Qualified Code: E78.5 - Hyperlipidemia, unspecified hyperlipidemia type (6) Anemia: Qualified Code: D64.9 - Anemia, unspecified type (7) S/P total hip arthroplasty: Qualified Code: Z96.641 - Status post total replacement of right hip Myron Woodward MD Dec 30, 2016 15:32
--- NOTE | 2016-12-30 16:12 | RADRPT ---
EXAM DATE/TIME: 12/30/2016 15:57 [facility] COMPARISON: ABDOMEN KUB ONLY, April 30, 2016, 20:10. INDICATIONS : Abdominal pain. MEDICAL HISTORY : None. SURGICAL HISTORY : ORIF right hip. ENCOUNTER: Initial ACUITY: 1 day PAIN SCORE: 9/10 LOCATION: Right middle abdomen. FINDINGS: Supine view of the abdomen was performed. A moderate amount of stool is present greatest in the right side of the colon. There are several loops of gas containing bowel in the right lower quadrant which appear colonic. No abnormal masses, calcifications, or organomegaly is seen. The patient is status p ost right hip arthroplasty. The bony structures are otherwise unremarkable. CONCLUSION: Nonspecific bowel gas pattern with moderate amount of stool present greatest in the r ight side of the colon. Jeferson Cervantes MD on December 30, 2016 at 16:09 Board Certified Radiologist. This report was verified electronically.
[2016-12-30] MEDS: RESP: ALBUTEROL 2.5 MG/IPRATROPIUM 0.5 MG NEB (SCH) NEB ×2 (16:22→20:34)
[2016-12-30] MEDS: FUROSEMIDE 40 MG/4 ML VIAL IV PUSH SCH (16:32)
--- NOTE | 2016-12-30 17:30 | HHI.PR ---
Subjective Remarks alert afebrile occasional wheeze Objective Vital Signs Date Time Temp Pulse Resp B/P Pulse Ox O2 Delivery O2 Flow Rate FiO2 12/30/16 16:00 97.8 98 22 143/93 98 12/30/16 12:00 97.8 107 22 146/84 97 12/30/16 09:19 97 Nasal Cannula 2.00 12/30/16 08:00 Nasal Cannula 2.00 12/30/16 08:00 97.5 90 20 159/93 97 12/30/16 08:00 96 12/30/16 04:40 98.0 98 20 130/80 98 12/30/16 04:40 Bi-Pap 40 12/30/16 01:54 98 40 12/30/16 00:30 98.8 94 20 136/89 95 12/30/16 00:30 Bi-Pap 40 12/29/16 20:39 98 Nasal Cannula 2.00 12/29/16 20:00 97.9 109 24 153/93 99 12/29/16 20:00 Nasal Cannula 2.00 12/29/16 20:00 113 12/29/16 17:30 97.7 106 20 156/90 99 I/O 12/29/16 12/29/16 12/29/16 12/30/16 12/30/16 12/30/16 07:00 15:00 23:00 07:00 15:00 23:00 Intake Total 1068 ml 2099 ml 678 ml 720 ml Output Total 1050 ml 1600 ml 1000 ml 1150 ml Balance 18 ml 499 ml -322 ml -430 ml Intake Oral 800 ml 1800 ml 600 ml 720 ml IV Total 268 ml 299 ml 78 ml Output Urine Total 1050 ml 1600 ml 1000 ml 1150 ml # Bowel Movements 0 1 0 1 Result Diagram: 12/29/16 0420 12/29/16 0420 Objective Remarks GENERAL: SKIN: Warm and dry. HEAD: Atraumatic. Normocephalic. EYES: Pupils equal and round. No scleral icterus. No injection or drainage. ENT: No nasal bleeding or discharge. Mucous membranes pink and moist. NECK: Trachea midline. No JVD. CARDIOVASCULAR: Regular rate and rhythm. RESPIRATORY: No accessory muscle use. scattered wheeze GASTROINTESTINAL: Abdomen soft, non-tender, nondistended. Hepatic and splenic margins not palpable. MUSCULOSKELETAL: Extremities without clubbing, cyanosis, or edema. No obvious deformities. NEUROLOGICAL: Awake and alert. No obvious cranial nerve deficits. Motor grossly within normal limits. Five out of 5 muscle strength in the arms and legs. Normal speech. PSYCHIATRIC: Appropriate mood and affect; insight and judgment normal. Assessment and Plan Assessment and Plan respiratory failure acute PE Asthma PLAN anticoags bronchodilator therapy increase activity conslt hematology recurrent PE Mary Hernandez MD Dec 30, 2016 17:30
[2016-12-30] MEDS: MONTELUKAST SODIUM 10 MG TAB PO SCH (21:07)
[2016-12-30] MEDS: ATORVASTATIN 20 MG TAB PO SCH (21:07)
[2016-12-30] MEDS: SODIUM CHLORIDE 0.9% FLUSH 10 ML FLUSH IVF PRN (21:08)
[2016-12-31] VITALS (14 sets, daily range): BP systolic 151–167; BP diastolic 89–98; PULSE 96–115; RESP 18–21; TEMP 97.5–98.6; O2SAT 93–98
[2016-12-31] MEDS: RESP: ALBUTEROL 2.5 MG/IPRATROPIUM 0.5 MG NEB (SCH) NEB ×7 (00:54→23:42)
[2016-12-31] MEDS ORDERED: diphenhydrAMINE HCL 25 MG CAP PO PRN (01:45)
[2016-12-31] MEDS ORDERED: ACETAMINOPHEN 325 MG TAB PO PRN (01:45)
[2016-12-31] MEDS: DOCUSATE SODIUM 100 MG CAP PO SCH ×2 (02:49→14:57)
[2016-12-31] MEDS: SODIUM CHLORIDE 0.9% FLUSH 10 ML FLUSH IVF PRN (02:50)
[2016-12-31] MEDS: methylPREDNISolone SOD SUCC 125 MG/2 ML VIAL IV PUSH SCH ×4 (02:50→20:37)
[2016-12-31] MEDS: HYDROcodone 5 MG/HOMATROPINE 1.5 MG SYRUP 5 ML CUP PO PRN ×3 (04:51→17:28)
[2016-12-31] MEDS: INSULIN ASPART SUPPLEMENTAL SCALE SQ SCH ×4 (06:16→20:37)
[2016-12-31] MEDS: ACETAMINOPHEN/HYDROcodone 325 MG/5 MG TAB PO PRN ×4 (06:32→23:36)
[2016-12-31 07:31] LABS: AUTOMATED NEUTROPHIL # 10.1 TH/MM3 (1.8-7.7); BASOPHIL % 0.2 % (0.0-2.0); EOSINOPHIL % 0.1 % (0.0-4.0); HEMATOCRIT 28.7 % (39.0-51.0); LYMPH % 4.5 % (9.0-44.0); LYMPHOCYTE # 0.5 TH/MM3 (1.0-4.8); MEAN CELL VOLUME 73.2 FL (80.0-100.0); MEAN CORPUSCULAR HEMOGLOBIN 22.2 PG (27.0-34.0); MEAN CORPUSCULAR HGB CONC 30.3 % (32.0-36.0); MONO % 4.3 % (0.0-8.0); NEUT % 90.9 % (16.0-70.0); PLATELET COUNT 480 TH/MM3 (150-450); RED BLOOD COUNT 3.92 MIL/MM3 (4.50-5.90); WHITE BLOOD COUNT 11.1 TH/MM3 (4.0-11.0)
[2016-12-31 07:39] LABS: APTT (PATIENT) 32.8 SEC (24.3-30.1); INTERNATIONAL NORMALIZED RATIO 3.9 RATIO; PROTHROMBIN TIME - PATIENT 45.2 SEC (9.8-11.6)
[2016-12-31 07:57] LABS: HEMO FLAGS AUTO DIFF
[2016-12-31] MEDS: BUDESONIDE-FORMOTEROL 160/4.5 MCG INHALER INH SCH ×2 (08:34→20:38)
[2016-12-31] MEDS: PANTOPRAZOLE SOD 40 MG DELAYED RELEASE TAB PO SCH (08:35)
[2016-12-31] MEDS: SUCRALFATE 1 GM TAB PO SCH ×3 (08:35→16:25)
[2016-12-31] MEDS: POTASSIUM CHLORIDE 10 MEQ CONTROLLED RELEASE TAB PO SCH (08:36)
[2016-12-31] MEDS: IRON SUCROSE INJ 200 MG in SODIUM CHLORIDE 0.9% INJ 100 ML IV SCH (08:37)
[2016-12-31] MEDS: FUROSEMIDE 40 MG/4 ML VIAL IV PUSH SCH (08:38)
[2016-12-31] MEDS: LORazepam 0.5 MG TAB PO SCH ×2 (08:38→20:36)
[2016-12-31] MEDS: DILTIAZEM-CD 180 MG CAP ER PO SCH (08:38)
[2016-12-31] MEDS: SODIUM CHLORIDE 0.9% FLUSH 10 ML FLUSH IVF SCH (08:38)
[2016-12-31] MEDS ORDERED: PHYTONADIONE 5 MG TAB PO ONE (08:45)
[2016-12-31] MEDS ORDERED: PILL SPLITTER OTHER PRN (08:45)
[2016-12-31 09:11] LABS: BANDS 2 % (0-6); CORRECTED NUCLEATED RBC 2 /100 WBC (0-0); METAMYELOCYTES 3 % (0-1); MYELOCYTES 1 % (0-0); NEUTROPHIL # MANUAL DIFF 10.5 TH/MM3 (1.8-7.7); POLYS (SEG NEUTROPHILS) 89 % (16-70); WBC DIFF SAMPLE 100
[2016-12-31 09:12] LABS: ACANTHOCYTES OCC (NORMAL); OVALOCYTES 1+ (NORMAL); PLATELET ESTIMATE SMEAR HIGH (NORMAL); PLATELET MORPHOLOGY NORMAL (NORMAL); SCAN/DIFF FINAL DIFF MANUAL
--- NOTE | 2016-12-31 09:56 | HHI.PR ---
Subjective History of Present Illness Patient have SOB cough and sever wheezing Have Pulmonary embolism... high INR 3.9 today holding coumadin ID / Cardiology input noted. Abdominal distension checked abdominal X- ray nothing acute have leg swelling on Lasix 40 mg IV Daily. c/o oral thrush start Nystatin 5 ml PO QID.d/w cardiology Dr vale getting 2D Echo. Review of Systems Constitutional Constitutional: Fatigue, Weakness Pulmonary Respiratory: Coughing, Shortness of Breath, Wheezing Musculoskeletal MS Remarks Right Hip Pain. Vitals/Results Intake & Output 12/30/16 12/30/16 12/31/16 15:00 23:00 07:00 Intake Total 720 ml 240 ml 400 ml Output Total 1150 ml 975 ml 1100 ml Balance -430 ml -735 ml -700 ml Intake Oral 720 ml 240 ml 0 ml IV Total 100 ml Packed Cells 300 ml Output Urine Total 1150 ml 975 ml 1100 ml # Bowel Movements 1 0 Vital Signs Vital Signs Date Time Temp Pulse Resp B/P Pulse Ox O2 Delivery O2 Flow Rate FiO2 12/31/16 08:52 98 Nasal Cannula 2.00 12/31/16 08:00 97.9 106 19 161/97 96 12/31/16 06:17 97.7 99 20 167/98 96 12/31/16 04:42 97.8 97 20 165/98 96 12/31/16 04:16 97.7 96 20 164/93 96 12/31/16 04:00 97.5 115 18 164/93 97 12/31/16 03:38 98.6 101 20 151/96 96 12/31/16 00:00 97.7 107 20 151/94 96 12/30/16 20:35 98 21 12/30/16 20:00 Nasal Cannula 2.00 12/30/16 20:00 97.6 104 20 144/82 96 12/30/16 16:00 97.8 98 22 143/93 98 12/30/16 12:00 97.8 107 22 146/84 97 CBC/BMP: 12/31/16 0715 12/29/16 0420 Lab Results Laboratory Tests Test 12/31/16 12/31/16 00:35 07:15 Blood Type O POSITIVE Antibody Screen NEGATIVE Crossmatch Leukocyte-Reduced Red Blood Cells Blood Bank Comment White Blood Count 11.1 TH/MM3 Red Blood Count 3.92 MIL/MM3 Hemoglobin 8.7 GM/DL Hematocrit 28.7 % Mean Corpuscular Volume 73.2 FL Mean Corpuscular Hemoglobin 22.2 PG Mean Corpuscular Hemoglobin 30.3 % Concent Red Cell Distribution Width 23.0 % Platelet Count 480 TH/MM3 Mean Platelet Volume 6.6 FL Neutrophils (%) (Auto) 90.9 % Lymphocytes (%) (Auto) 4.5 % Monocytes (%) (Auto) 4.3 % Eosinophils (%) (Auto) 0.1 % Basophils (%) (Auto) 0.2 % Neutrophils # (Auto) 10.1 TH/MM3 Lymphocytes # (Auto) 0.5 TH/MM3 Monocytes # (Auto) 0.5 TH/MM3 Eosinophils # (Auto) 0.0 TH/MM3 Basophils # (Auto) 0.0 TH/MM3 CBC Comment AUTO DIFF Differential Total Cells 100 Counted Neutrophils % (Manual) 89 % Band Neutrophils % 2 % Lymphocytes % 3 % Monocytes % 2 % Neutrophils # (Manual) 10.5 TH/MM3 Metamyelocytes 3 % Myelocytes 1 % Nucleated Red Blood Cells 2 /100 WBC Differential Comment FINAL DIFF MANUAL Platelet Estimate HIGH Platelet Morphology Comment NORMAL Polychromasia 2.0 % Ovalocytes 1+ Acanthocytes OCC Prothrombin Time 45.2 SEC Prothromb Time International 3.9 RATIO Ratio Activated Partial 32.8 SEC Thromboplast Time Physical Exam General General Appearance: Well Developed, Well Nourished, Comfortable, Anxious Eyes Eye Exam: Pupils Equal, Pupils Reactive, Sclera White, Extraocular Movement Intact Ears & Nose Ears & Nose Exam: Nasal Mucosa [place] Throat Throat Exam: Oral Mucosa [place] & Moist, Oral Pharynx Normal Neck Neck Exam: Neck Supple, Trachea Midline Pulmonary Resp Exam: Diminished Breath Sounds Resp Remarks Bilateral wheezing. Cardiology CV Exam: Good Perfusion, Tachycardia Gastrointestinal/Abdomen GI Exam: Soft, Non-Tender, Bowel Sounds Present, Distended Musculoskeletal MS Exam: Joints Intact Integumentary Skin Exam: Warm, Dry Extremeties Extremities Exam: No Edema, Pedal Pulses Palpable, Moderate Edema Extremeties Remarks Right hip mild tenderness Neurologic Neuro Exam: Alert, Awake, Oriented, Speech Clear, Moving All Extremities, No Focal Deficits Psychiatric Psych Exam: Appropriate Responses VTE Prophylaxis VTE Prophylaxis Meds: Heparin PUD Prophylasis PUD Prophylaxis: Protonix, Carafate Assessment/Plan Problem List: (1) Pulmonary embolism (2) Sepsis (3) Acute asthma exacerbation (4) Hypertension (5) Hyperlipidemia (6) Anemia (7) Abscess of hip, right Plan: hx of infection, currently on abx (8) S/P total hip arthroplasty Assessment/Plan continue with BIPAP PRN Duonebs neublization IV steroids 60 mg IV q 6 Pulmonary input noted on Hycodan PRN cough hx DVT and PE, was on Eliquis now with recurrent PE, failed on Eliquis appreciate cardiology input, High INR 3.9 today holding coumadin drop in HH, will monitor. s/p PRBC Transfusion ..stable. Checks stools for OB x 3 continue Micafungin, end date 12/31 repeat lactic acid noted 3.0 continue Zithromax ID input noted.. follow CBC sinus tachycardia.. will monitor, on Cardizem Pain management, on Wheeler and Flexeril PRN noted with elevated blood glucose, on steroids on accuchecks AC/HS with ISS PPI and carafate for GI prophylaxis Hypokalemia resolved. Abdominal distension check abdominal X- ray have leg swelling on Lasix 40 mg IV Daily. Oral thrush start Nystatin 5 ml PO QID. Check CBC with diff CMP and PT/ INR in AM. Condition guarded, multiple admissions, D/W patient. Discussed Condition with: Patient Problem Qualifiers (1) Pulmonary embolism: Qualified Code: I26.99 - Other pulmonary embolism without acute cor pulmonale, unspecified chronicity (2) Sepsis: Qualified Code: A41.9 - Sepsis, due to unspecified organism (3) Acute asthma exacerbation: Qualified Code: J45.901 - Asthma with acute exacerbation, unspecified asthma severity (4) Hypertension: Qualified Code: I10 - Essential hypertension (5) Hyperlipidemia: Qualified Code: E78.5 - Hyperlipidemia, unspecified hyperlipidemia type (6) Anemia: Qualified Code: D64.9 - Anemia, unspecified type (7) S/P total hip arthroplasty: Qualified Code: Z96.641 - Status post total replacement of right hip Myron Woodward MD Dec 31, 2016 09:56
[2016-12-31] MEDS ORDERED: POLYETHYLENE GLYCOL 17 GM PKG PO PRN (10:15)
--- NOTE | 2016-12-31 10:59 | PD.ONC.PN ---
Subjective Subjective Remarks Afebrile overnight. Patient resting comfortably. Denies bleeding. dyspnea stable. C/o some pain in RUQ. Objective Data Date Time Temp Pulse Resp B/P Pulse Ox O2 Delivery O2 Flow Rate FiO2 12/31/16 08:52 98 Nasal Cannula 2.00 12/31/16 08:00 97.9 106 19 161/97 96 12/31/16 06:17 97.7 99 20 167/98 96 12/31/16 04:42 97.8 97 20 165/98 96 12/31/16 04:16 97.7 96 20 164/93 96 12/31/16 04:00 97.5 115 18 164/93 97 12/31/16 03:38 98.6 101 20 151/96 96 12/31/16 00:00 97.7 107 20 151/94 96 12/30/16 20:35 98 21 12/30/16 20:00 Nasal Cannula 2.00 12/30/16 20:00 97.6 104 20 144/82 96 12/30/16 16:00 97.8 98 22 143/93 98 12/30/16 12:00 97.8 107 22 146/84 97 12/31/16 12/31/16 12/31/16 07:00 15:00 23:00 Intake Total 400 ml Output Total 1100 ml Balance -700 ml Result Diagram: 12/31/16 0715 12/29/16 0420 Laboratory Results Laboratory Tests Test 12/31/16 12/31/16 00:35 07:15 Blood Type O POSITIVE Antibody Screen NEGATIVE Crossmatch Leukocyte-Reduced Red Blood Cells Blood Bank Comment White Blood Count 11.1 TH/MM3 Red Blood Count 3.92 MIL/MM3 Hemoglobin 8.7 GM/DL Hematocrit 28.7 % Mean Corpuscular Volume 73.2 FL Mean Corpuscular Hemoglobin 22.2 PG Mean Corpuscular Hemoglobin 30.3 % Concent Red Cell Distribution Width 23.0 % Platelet Count 480 TH/MM3 Mean Platelet Volume 6.6 FL Neutrophils (%) (Auto) 90.9 % Lymphocytes (%) (Auto) 4.5 % Monocytes (%) (Auto) 4.3 % Eosinophils (%) (Auto) 0.1 % Basophils (%) (Auto) 0.2 % Neutrophils # (Auto) 10.1 TH/MM3 Lymphocytes # (Auto) 0.5 TH/MM3 Monocytes # (Auto) 0.5 TH/MM3 Eosinophils # (Auto) 0.0 TH/MM3 Basophils # (Auto) 0.0 TH/MM3 CBC Comment AUTO DIFF Differential Total Cells 100 Counted Neutrophils % (Manual) 89 % Band Neutrophils % 2 % Lymphocytes % 3 % Monocytes % 2 % Neutrophils # (Manual) 10.5 TH/MM3 Metamyelocytes 3 % Myelocytes 1 % Nucleated Red Blood Cells 2 /100 WBC Differential Comment FINAL DIFF MANUAL Platelet Estimate HIGH Platelet Morphology Comment NORMAL Polychromasia 2.0 % Ovalocytes 1+ Acanthocytes OCC Prothrombin Time 45.2 SEC Prothromb Time International 3.9 RATIO Ratio Activated Partial 32.8 SEC Thromboplast Time Culture Results Microbiology Date/Time Procedure Status Source Growth 12/29/16 15:30 Stool Occult Blood (STEFFANIE) - Final Complete Stool Stool HEMOCCULT NEGATIVE 12/29/16 23:30 Stool Occult Blood (STEFFANIE) - Final Complete Stool Stool HEMOCCULT NEGATIVE Administered Medications Medications (Trade) Dose Ordered Sig/Gabi Route PRN Reason Start Time Stop Time Status Last Admin Dose Admin Docusate Sodium (Colace) 100 mg Q12H PO 12/25/16 14:45 12/31/16 02:49 Sodium Chloride (NS Flush) DAILY IVF 12/26/16 09:00 12/31/16 08:38 Heparin Sodium (Porcine) (Heparin Central Flush) DAILY IV FLUSH 12/26/16 09:00 12/29/16 08:09 Sodium Chloride (NS Flush) UNSCH PRN IVF SEE PROTOCOL 12/26/16 08:15 12/31/16 02:50 Heparin Sodium (Porcine) (Heparin Central Flush) UNSCH PRN IV FLUSH SEE PROTOCOL 12/26/16 08:15 12/30/16 06:10 Atorvastatin Calcium (Lipitor) 20 mg HS PO 12/26/16 21:00 12/30/16 21:07 Budesonide/ Formoterol Fumarate (Symbicort 160-4.5 Inh) 2 puff Q12HR INH 12/26/16 09:00 12/31/16 08:34 Diltiazem HCl (Cardizem Cd) 360 mg DAILY PO 12/26/16 09:00 12/31/16 08:38 Montelukast Sodium (Singulair) 10 mg HS PO 12/26/16 21:00 12/30/16 21:07 Sucralfate (Carafate) 1 gm TID PO 12/26/16 09:00 12/31/16 08:35 Cyclobenzaprine HCl (Flexeril) 10 mg Q8H PRN PO spasms 12/26/16 08:15 12/29/16 11:30 Pantoprazole Sodium (Protonix) 40 mg DAILY PO 12/26/16 09:00 12/31/16 08:35 Lorazepam (Ativan) 0.5 mg BID PO 12/26/16 09:00 12/31/16 08:38 Acetaminophen/ Hydrocodone Bitart ([place] 5-325 Mg) 2 tab Q4H PRN PO PAIN SCALE 5 TO 10 12/26/16 08:30 12/31/16 06:32 Hydrocodone Bit/ Homatropine Methylb (Hycodan Liq) 5 ml Q6H PRN PO COUGH 12/26/16 08:30 12/31/16 04:51 Potassium Chloride (KCl) 60 meq DAILY PO 12/27/16 11:15 12/31/16 08:36 Methylprednisolone Sodium Succinate (SoluMEDROL INJ) 60 mg Q6H IV PUSH 12/27/16 20:00 12/31/16 08:37 Furosemide (Lasix Inj) 40 mg DAILY IV PUSH 12/30/16 15:30 12/31/16 08:38 Objective Remarks GENERAL: Middle aged male, sitting up in bed in [facility]. SKIN: Warm and dry. HEAD: Normocephalic. EYES: No injection or drainage. NECK: Supple, trachea midline. CARDIOVASCULAR: Regular rate and rhythm RESPIRATORY: prolonged expiratory phase. scattered wheeze. GASTROINTESTINAL: Abdomen soft, non-tender, nondistended. EXTREMITIES: No cyanosis. NEUROLOGICAL: awake and alert, normal speech. moving all extremities. Assessment/Plan Assessment 51-year-old male with recurrent pulmonary emboli. --was on Eliquis 2.5mg BID outpatient (prophylactic dosing) h/o Reactive airway disease complicated by frequent exacerbations. Multiple intubations pneumothorax. right lower extremity deep venous thrombosis in December of 2015. Left lung pulmonary embolus December of 2015. Right lung pulmonary embolus in December of 2016. 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 Plan 1. recurrent pulmonary emboli: patient INR 3.9 today. d/w Dr. Woodward, will hold off on giving Vitamin K for now. no obvious active bleeding. monitor hgb. 2. Microcytic anemia: s/p 1 unit pRBC yesterday. monitor H/H. Had GI w/u in 2016, EGD at that time showed on gastritis and esophagitis. no bleeding seen. Colonoscopy in 11/2016 showed internal hemorrhoids 3. Abdominal discomfort: obtain CT ab/pelvis Attending Statement The exam, history, and the medical decision-making described in the above note were completed with the assistance of the mid-level provider. I reviewed and agree with the findings presented. I attest that I had a [id number] encounter with the patient on the same day, and personally performed and documented my assessment and findings in the medical record. No convincing evidence that he is having GI bleeding. Stool occult negative X 2. CT abdomen/pelvis also negative. Severely microcytic. has iron deficiency. will give additional IV iron. Start Heparin GTT for now, until GI evaluation is completed. Option for anticoagulation on discharge include. Coumadin vs Full dose Eliquis since he was not on therapeutic dose prior to his PTE d/w with patient. Images reviewed. notes reviewed from other specialists d/w r Berenice Lo Dec 31, 2016 10:59 Reuben Cali MD Jan 01, 2017 00:07
[2016-12-31] MEDS: NYSTATIN SUSP 500,000 U/5 ML CUP SWISH-SWAL SCH ×3 (11:36→20:37)
--- NOTE | 2016-12-31 14:36 | PD.CARD.PN ---
Subjective Subjective Remarks No CP, still SOB, wheezing, c/o peripheral LE edema Objective Medications Current Medications Medications (Trade) Dose Ordered Sig/Gabi Route Start Time Stop Time Status Last Admin (Zofran Inj) 4 mg Q6H PRN IVP 12/25/16 14:45 (Colace) 100 mg Q12H PO 12/25/16 14:45 12/31/16 02:49 (Narcan Inj) 0.4 mg UNSCH PRN IV 12/25/16 14:45 (NS Flush) DAILY IVF 12/26/16 09:00 12/31/16 08:38 (Heparin Central Flush) DAILY IV FLUSH 12/26/16 09:00 12/29/16 08:09 (NS Flush) UNSCH PRN IVF 12/26/16 08:15 12/31/16 02:50 (Heparin Central Flush) UNSCH PRN IV FLUSH 12/26/16 08:15 12/30/16 06:10 (NS Flush) UNSCH PRN IVF 12/26/16 08:15 (Lipitor) 20 mg HS PO 12/26/16 21:00 12/30/16 21:07 (Symbicort 160-4.5 Inh) 2 puff Q12HR INH 12/26/16 09:00 12/31/16 08:34 (Cardizem Cd) 360 mg DAILY PO 12/26/16 09:00 12/31/16 08:38 (Singulair) 10 mg HS PO 12/26/16 21:00 12/30/16 21:07 (Carafate) 1 gm TID PO 12/26/16 09:00 12/31/16 11:36 (Flexeril) 10 mg Q8H PRN PO 12/26/16 08:15 12/29/16 11:30 (Protonix) 40 mg DAILY PO 12/26/16 09:00 12/31/16 08:35 (D50w (Vial) Inj) 25 ml UNSCH PRN IV PUSH 12/26/16 08:15 (Glucagon Inj) 1 mg UNSCH PRN OTHER 12/26/16 08:15 (Milk Of Magnesia Liq) 30 ml DAILY PRN PO 12/26/16 08:15 (Ativan) 0.5 mg BID PO 12/26/16 09:00 12/31/16 08:38 ([place] 5-325 Mg) 2 tab Q4H PRN PO 12/26/16 08:30 12/31/16 06:32 (Hycodan Liq) 5 ml Q6H PRN PO 12/26/16 08:30 12/31/16 11:36 (KCl) 60 meq DAILY PO 12/27/16 11:15 12/31/16 08:36 (SoluMEDROL INJ) 60 mg Q6H IV PUSH 12/27/16 20:00 12/31/16 08:37 (Lasix Inj) 40 mg DAILY IV PUSH 12/30/16 15:30 12/31/16 08:38 (Pill Splitter) 1 ea UNSCH PRN OTHER 12/31/16 08:45 (Mycostatin Liq) 5 ml QID SWISH-SWAL 12/31/16 13:00 12/31/16 11:36 (Miralax) 17 gm DAILY PRN PO 12/31/16 10:15 Vital Signs / I&O Vital Signs Date Time Temp Pulse Resp B/P Pulse Ox O2 Delivery O2 Flow Rate FiO2 12/31/16 12:00 97.9 107 19 159/97 97 12/31/16 08:52 98 Nasal Cannula 2.00 12/31/16 08:00 Nasal Cannula 2.00 12/31/16 08:00 97.9 106 19 161/97 96 12/31/16 06:17 97.7 99 20 167/98 96 12/31/16 04:42 97.8 97 20 165/98 96 12/31/16 04:16 97.7 96 20 164/93 96 12/31/16 04:00 97.5 115 18 164/93 97 12/31/16 03:38 98.6 101 20 151/96 96 12/31/16 00:00 97.7 107 20 151/94 96 12/30/16 20:35 98 21 12/30/16 20:00 Nasal Cannula 2.00 12/30/16 20:00 97.6 104 20 144/82 96 12/30/16 16:00 97.8 98 22 143/93 98 I/O 12/30/16 12/30/16 12/30/16 12/31/16 12/31/16 12/31/16 07:00 15:00 23:00 07:00 15:00 23:00 Intake Total 678 ml 720 ml 240 ml 400 ml Output Total 1000 ml 1150 ml 975 ml 1100 ml Balance -322 ml -430 ml -735 ml -700 ml Intake Oral 600 ml 720 ml 240 ml 0 ml IV Total 78 ml 100 ml Packed Cells 300 ml Output Urine Total 1000 ml 1150 ml 975 ml 1100 ml # Bowel Movements 0 1 0 Physical Exam GENERAL: In NAD SKIN: Warm and dry. HEAD: Normocephalic. EYES: No scleral icterus. No injection or drainage. NECK: Supple, trachea midline. No JVD or lymphadenopathy. CARDIOVASCULAR: Regular rate and rhythm without murmurs, gallops, or rubs. RESPIRATORY: Bilat wheezing wheezes. No accessory muscle use. GASTROINTESTINAL: Abdomen soft, non-tender, nondistended. MUSCULOSKELETAL: No cyanosis, RLE edema. Laboratory Laboratory Tests Test 12/31/16 12/31/16 00:35 07:15 Blood Type O POSITIVE Antibody Screen NEGATIVE Crossmatch Leukocyte-Reduced Red Blood Cells Blood Bank Comment White Blood Count 11.1 TH/MM3 Red Blood Count 3.92 MIL/MM3 Hemoglobin 8.7 GM/DL Hematocrit 28.7 % Mean Corpuscular Volume 73.2 FL Mean Corpuscular Hemoglobin 22.2 PG Mean Corpuscular Hemoglobin 30.3 % Concent Red Cell Distribution Width 23.0 % Platelet Count 480 TH/MM3 Mean Platelet Volume 6.6 FL Neutrophils (%) (Auto) 90.9 % Lymphocytes (%) (Auto) 4.5 % Monocytes (%) (Auto) 4.3 % Eosinophils (%) (Auto) 0.1 % Basophils (%) (Auto) 0.2 % Neutrophils # (Auto) 10.1 TH/MM3 Lymphocytes # (Auto) 0.5 TH/MM3 Monocytes # (Auto) 0.5 TH/MM3 Eosinophils # (Auto) 0.0 TH/MM3 Basophils # (Auto) 0.0 TH/MM3 CBC Comment AUTO DIFF Differential Total Cells 100 Counted Neutrophils % (Manual) 89 % Band Neutrophils % 2 % Lymphocytes % 3 % Monocytes % 2 % Neutrophils # (Manual) 10.5 TH/MM3 Metamyelocytes 3 % Myelocytes 1 % Nucleated Red Blood Cells 2 /100 WBC Differential Comment FINAL DIFF MANUAL Platelet Estimate HIGH Platelet Morphology Comment NORMAL Polychromasia 2.0 % Ovalocytes 1+ Acanthocytes OCC Prothrombin Time 45.2 SEC Prothromb Time International 3.9 RATIO Ratio Activated Partial 32.8 SEC Thromboplast Time Imaging Last Impressions Abdomen X-Ray 12/30/16 0000 Signed Impressions: Service Date/Time: Friday, December 30, 2016 15:57 - CONCLUSION: Nonspecific bowel gas pattern with moderate amount of stool present greatest in the right side of the colon. Jeferson Cervantes MD Lower Extremity Ultrasound 12/27/16 0000 Signed Impressions: Service Date/Time: Tuesday, December 27, 2016 10:06 - CONCLUSION: Normal examination. Glendy Harry MD Hip X-Ray 12/26/16 0000 Signed Impressions: Service Date/Time: December 16:04 - CONCLUSION: Migration of the greater trochanteric screw laterally with separation of the side plate by approximately 7-8 mm. Glendy Harry MD Femur X-Ray 12/26/16 0000 Signed Impressions: Service Date/Time: December 16:04 - CONCLUSION: Migration of the screw laterally at the level of the greater trochanteric component with separation of the plate by 7-8 mm. Glendy Harry MD Chest X-Ray 12/25/16 1238 Signed Impressions: Service Date/Time: Sunday, December 25, 2016 13:27 - CONCLUSION: No focal infiltrates seen. Adriel Thompson MD CT Angiography 12/25/16 0000 Signed Impressions: Service Date/Time: Sunday, December 25, 2016 14:45 - CONCLUSION: Positive for pulmonary embolism in the right lower lobe with a large filling defect extending into at least 3 segmental arteries. No evidence of pleural effusion. Adriel Thompson MD Assessment and Plan Problem List: (1) Pulmonary embolism (2) S/P total hip arthroplasty (3) Acute asthma exacerbation (4) Acute hypercapnic respiratory failure (5) Hypertension (6) Hyperlipidemia Assessment and Plan LE edema, continue diuretics. Check echo to evaluate RV fx. Continue anticoagulation including Coumadin. INR increased, recommend to hold Coumadin briefly, but not to use vit K. Continue tx for asthma exacerbation incl steroids as per Dr. Hernandez. Sinus tachycardia likely related to PE and bronchodilators. Continue monitoring. Increase activity as tolerated. D/w Dr. Woodward. Problem Qualifiers (1) Pulmonary embolism: Qualified Code: I26.99 - Other pulmonary embolism without acute cor pulmonale, unspecified chronicity (2) Acute asthma exacerbation: Qualified Code: J45.901 - Asthma with acute exacerbation, unspecified asthma severity (3) Hypertension: Qualified Code: I10 - Essential hypertension (4) Hyperlipidemia: Qualified Code: E78.5 - Hyperlipidemia, unspecified hyperlipidemia type Adam Moody MD Dec 31, 2016 14:36
--- NOTE | 2016-12-31 18:38 | HHI.PR ---
Subjective Remarks alert afebrile occasional wheeze Objective Vital Signs Date Time Temp Pulse Resp B/P Pulse Ox O2 Delivery O2 Flow Rate FiO2 12/31/16 16:00 98.2 105 21 151/89 96 12/31/16 15:32 93 Nasal Cannula 2.00 12/31/16 12:00 97.9 107 19 159/97 97 12/31/16 08:52 98 Nasal Cannula 2.00 12/31/16 08:00 Nasal Cannula 2.00 12/31/16 08:00 97.9 106 19 161/97 96 12/31/16 06:17 97.7 99 20 167/98 96 12/31/16 04:42 97.8 97 20 165/98 96 12/31/16 04:16 97.7 96 20 164/93 96 12/31/16 04:00 97.5 115 18 164/93 97 12/31/16 03:38 98.6 101 20 151/96 96 12/31/16 00:00 97.7 107 20 151/94 96 12/30/16 20:35 98 21 12/30/16 20:00 Nasal Cannula 2.00 12/30/16 20:00 97.6 104 20 144/82 96 I/O 12/30/16 12/30/16 12/30/16 12/31/16 12/31/16 12/31/16 06:59 14:59 22:59 06:59 14:59 22:59 Intake Total 678 ml 720 ml 240 ml 400 ml 1250 ml Output Total 1000 ml 1150 ml 975 ml 1100 ml 1950 ml Balance -322 ml -430 ml -735 ml -700 ml -700 ml Intake Oral 600 ml 720 ml 240 ml 0 ml 1250 ml IV Total 78 ml 100 ml Packed Cells 300 ml Output Urine Total 1000 ml 1150 ml 975 ml 1100 ml 1950 ml # Bowel Movements 0 1 0 Result Diagram: 12/31/16 0715 12/29/16 0420 Objective Remarks GENERAL: SKIN: Warm and dry. HEAD: Atraumatic. Normocephalic. EYES: Pupils equal and round. No scleral icterus. No injection or drainage. ENT: No nasal bleeding or discharge. Mucous membranes pink and moist. NECK: Trachea midline. No JVD. CARDIOVASCULAR: Regular rate and rhythm. RESPIRATORY: No accessory muscle use. scattered wheeze GASTROINTESTINAL: Abdomen soft, non-tender, nondistended. Hepatic and splenic margins not palpable. MUSCULOSKELETAL: Extremities without clubbing, cyanosis, or edema. No obvious deformities. NEUROLOGICAL: Awake and alert. No obvious cranial nerve deficits. Motor grossly within normal limits. Five out of 5 muscle strength in the arms and legs. Normal speech. PSYCHIATRIC: Appropriate mood and affect; insight and judgment normal. Assessment and Plan Assessment and Plan respiratory failure acute PE Asthma PLAN anticoags bronchodilator therapy increase activity conslt hematology recurrent PE Mary Hernandez MD Dec 31, 2016 18:38
--- NOTE | 2016-12-31 19:02 | EC ---
Study Study Date:12/31/2016 STUDY CONCLUSIONS SUMMARY - Left ventricle: The cavity size was normal. Wall thickness was increased in a pattern of mild LVH. Systolic function was normal. The estimated ejection fraction was in the range of 60% to 65%. Wall motion was normal; there were no regional wall motion abnormalities. - Aortic valve: Valve area: 3.46cm^2(VTI). Valve area: 4.08cm^2 (Vmax). If LV function is below 40, please consider prescribing an ACEI or ARB or document rationale for non-use. PROCEDURE DATA STUDY STATUS: Elective. Procedure: Transthoracic echocardiography. Image quality was fair. Scanning was performed from the parasternal and apical acoustic windows. Study completion: The patient tolerated the procedure well. Transthoracic echocardiography. M-mode, complete 2D, complete spectral Doppler, and color Doppler. Height: Height: 72in. Weight: Weight: 225.5lb. Body mass index: BMI: 30.7kg/m^2. Body surface area: BSA: 2.24m^2. Patient status: Inpatient. CARDIAC ANATOMY LEFT VENTRICLE: The cavity size was normal. Wall thickness was increased in a pattern of mild LVH. Systolic function was normal. The estimated ejection fraction was in the range of 60% to 65%. Wall motion was normal; there were no regional wall motion abnormalities. AORTIC VALVE: Trileaflet; normal thickness leaflets. Doppler: Transvalvular velocity was within the normal range. There was no stenosis. No regurgitation. Valve area: 3.46cm^2(VTI). Indexed valve area: 1.54cm^2/m^2 (VTI). Valve area: 4.08cm^2 (Vmax). Indexed valve area: 1.82cm^2/m^2 (Vmax). Mean gradient: 3mm Hg (S). AORTA: Aortic root: The aortic root was normal in size. MITRAL VALVE: Structurally normal valve. Doppler: Transvalvular velocity was within the normal range. There was no evidence for stenosis. Trace to mild regurgitation. Peak gradient: 3mm Hg (D). LEFT ATRIUM: The atrium was normal in size. RIGHT VENTRICLE: The cavity size was normal. Wall thickness was normal. PULMONIC VALVE: Doppler: Transvalvular velocity was within the normal range. There was no evidence for stenosis. No regurgitation. TRICUSPID VALVE: Structurally normal valve. Doppler: Transvalvular velocity was not obtained. No regurgitation. PULMONARY ARTERY: The main pulmonary artery was normal-sized. RIGHT ATRIUM: The atrium was normal in size. PERICARDIUM: There was no pericardial effusion. SYSTEMIC VEINS: Inferior vena cava: The vessel was normal in size. Patient weight: 225.5lb _Ejection fraction:_ 65-75% _Fractional shortening:_ 32% up to 5Kg 5-11.5Kg 11.6-22.9Kg 23-45Kg 45-57Kg Aortic Root 7-13 <17 13-22 17-27 17-27 LA diam 6-13 <23 24-38 33-47 37-40 RVID 10-17 7-15 7-15 7-18 8-17 LVIDd 12-22 <32 24-38 33-47 37-40 LVPW 2-4 3-6 5-7 6-8 7-8 IVS 2-4 3-6 5-7 6-8 7-8 BASIC MEASUREMENTS ADULT NORMAL Left ventricle LV internal dimension, ED, chordal 48.3 mm 43-52 level, PLAX LV internal dimension, ES, chordal 33.8 mm 23-38 level, PLAX Fractional shortening, chordal level, 30 % >29 PLAX LV posterior wall thickness, ED 13.1 mm IVS/LVPW ratio, ED 1 <1.3 Ventricular septum Septal thickness, ED 13.1 mm Aortic valve Leaflet separation *27 mm 15-26 Aorta Root diameter, ED 35 mm Left atrium Anterior-posterior dimension 35 mm Anterior-posterior dimension index 1.56 cm/m^2 <2.2 BASIC MEASUREMENTS ADULT NORMAL Aortic valve Leaflet separation *27 mm 15-26 DOPPLER MEASUREMENTS ADULT NORMAL Aortic valve Peak velocity, S 124 cm/s Mean velocity, S 75.9 cm/s VTI, S 18.6 cm Mean gradient, S 3 mm Hg Valve area, VTI 3.46 cm^2 Valve area index, VTI 1.54 cm^2/m^2 Valve area, Vmax 4.08 cm^2 Valve area index, Vmax 1.82 cm^2/m^2 Mitral valve Peak E-wave velocity 80 cm/s Peak A-wave velocity 119 cm/s Deceleration time *14 ms 150-230 Peak gradient, D 3 mm Hg Peak E/A ratio 0.7 Pulmonic valve Peak velocity, S 85.7 cm/s LEGEND: Mean values are shown as u=mean value. Asterisk (*) lynne values outside specified normal range. Prepared and signed by Nichol Peterson [id number]
[2016-12-31] MEDS ORDERED: DIATRIZOATE MEGLUM/DIATRIZOATE SOD 9 ML CUP PO ONE (19:07)
[2016-12-31] MEDS: MONTELUKAST SODIUM 10 MG TAB PO SCH (20:36)
[2016-12-31] MEDS: ATORVASTATIN 20 MG TAB PO SCH (20:37)
[2016-12-31] MEDS ORDERED: IOHEXOL 350 MG/ML 10 ML VIAL (for RAD DIAG) IV ONE (22:18)
--- NOTE | 2016-12-31 22:23 | RADRPT ---
EXAM DATE/TIME: 12/31/2016 21:53 [facility] COMPARISON: CT ABDOMEN & PELVIS W CONTRAST, March 30, 2016, 20:20. INDICATIONS : Right upper quadrant pain with a fever for 5 days . IV CONTRAST: 94 cc Omnipaque 350 (iohexol) IV ORAL CONTRAST: No oral contrast ingested. RADIATION DOSE: 14.48 CTDIvol (mGy) MEDICAL HISTORY : Chronic obstructive pulmonary disease. Cardiovascular disease Hypertension. SURGICAL HISTORY : Appendectomy. ENCOUNTER: Initial ACUITY: 4 - 6 days PAIN SCALE: 7/10 LOCATION: Umbilical TECHNIQUE: Volumetric scanning of the abdomen and pelvis was performed. Using automated exposure control and ad justment of the mA and/or kV according to patient size, radiation dose was kept as low as reasonably achievable to obtain optimal diagnostic quality images. FINDINGS: LOWER LUNGS: The visualized lower lungs are clear. LIVER: Homogeneous density without lesion. There is no dilation of the biliary tree. No calcified gallston es. SPLEEN: Normal size without lesion. PANCREAS: Within normal limits. KIDNEYS: Normal in size and shape. There is no mass, stone or hydronephrosis. ADRENAL GLANDS: Within normal limits. VASCULAR: There is no aortic aneurysm. BOWEL/MESENTERY: Scattered diverticulosis of the descending and sigmoid colon. No diverticulitis. There is no free in traperitoneal air or fluid. ABDOMINAL WALL: Small fat containing umbilical hernia. RETROPERITONEUM: There is no lymphadenopathy. BLADDER: No wall thickening or mass. REPRODUCTIVE: Within normal limits. INGUINAL: There is no lymphadenopathy or hernia. MUSCULOSKELETAL: Within normal limits for patient age. CONCLUSION: 1. No renal calculi or hydronephrosis. 2. Diverticulosis without diverticulitis. Davion Carranza MD on December 31, 2016 at 22:19 Board Certified Radiologist. This report was verified electronically.
[2017-01-01] VITALS (9 sets, daily range): BP systolic 153–165; BP diastolic 94–100; PULSE 85–115; RESP 16–20; TEMP 97.3–97.9; O2SAT 94–99
[2017-01-01] MEDS: methylPREDNISolone SOD SUCC 125 MG/2 ML VIAL IV PUSH SCH ×4 (01:09→20:44)
[2017-01-01] MEDS: HYDROcodone 5 MG/HOMATROPINE 1.5 MG SYRUP 5 ML CUP PO PRN ×3 (01:09→21:59)
[2017-01-01] MEDS: RESP: ALBUTEROL 2.5 MG/IPRATROPIUM 0.5 MG NEB (SCH) NEB ×5 (03:53→19:42)
[2017-01-01] MEDS: ACETAMINOPHEN/HYDROcodone 325 MG/5 MG TAB PO PRN ×3 (04:55→20:43)
[2017-01-01] MEDS: DOCUSATE SODIUM 100 MG CAP PO SCH ×2 (04:55→14:45)
[2017-01-01] MEDS: SODIUM CHLORIDE 0.9% FLUSH 10 ML FLUSH IVF PRN (04:55)
[2017-01-01 05:29] LABS: AUTOMATED NEUTROPHIL # 10.6 TH/MM3 (1.8-7.7); BASOPHIL % 0.1 % (0.0-2.0); HEMATOCRIT 28.2 % (39.0-51.0); LYMPH % 3.7 % (9.0-44.0); LYMPHOCYTE # 0.4 TH/MM3 (1.0-4.8); MEAN CELL VOLUME 73.2 FL (80.0-100.0); MEAN CORPUSCULAR HEMOGLOBIN 22.3 PG (27.0-34.0); MEAN CORPUSCULAR HGB CONC 30.5 % (32.0-36.0); MONO % 4.2 % (0.0-8.0); PLATELET COUNT 431 TH/MM3 (150-450); RED BLOOD COUNT 3.85 MIL/MM3 (4.50-5.90); RED CELL DISTRIBUTION WIDTH 23.2 % (11.6-17.2); WHITE BLOOD COUNT 11.6 TH/MM3 (4.0-11.0)
[2017-01-01 05:35] LABS: PROTHROMBIN TIME - PATIENT 35.2 SEC (9.8-11.6)
[2017-01-01 05:38] LABS: HEMO FLAGS AUTO DIFF
[2017-01-01 05:56] LABS: ALKALINE PHOSPHATASE 145 U/L (45-117); ALT (GPT) 66 U/L (12-78); ANION GAP 8 MEQ/L (5-15); AST (GOT) 22 U/L (15-37); BICARBONATE 31.8 MEQ/L (21.0-32.0); BLOOD UREA NITROGEN 17 MG/DL (7-18); CHLORIDE 98 MEQ/L (98-107); GLOMERULAR FILTRATION RATE 89 ML/MIN (>89); POTASSIUM 3.6 MEQ/L (3.5-5.1); SODIUM (NA) 138 MEQ/L (136-145); TOTAL BILIRUBIN ADULT 0.3 MG/DL (0.2-1.0)
[2017-01-01] MEDS: INSULIN ASPART SUPPLEMENTAL SCALE SQ SCH ×4 (07:00→20:44)
[2017-01-01 07:45] LABS: BANDS 2 % (0-6); METAMYELOCYTES 1 % (0-1); MYELOCYTES 2 % (0-0); NEUTROPHIL # MANUAL DIFF 10.7 TH/MM3 (1.8-7.7); PLATELET ESTIMATE SMEAR NORMAL (NORMAL); PLATELET MORPHOLOGY NORMAL (NORMAL); POLYS (SEG NEUTROPHILS) 87 % (16-70); SCAN/DIFF FINAL DIFF MANUAL; WBC DIFF SAMPLE 100
[2017-01-01 07:46] LABS: OVALOCYTES 1+ (NORMAL)
[2017-01-01] MEDS: SUCRALFATE 1 GM TAB PO SCH ×3 (08:36→17:48)
[2017-01-01] MEDS: DILTIAZEM-CD 180 MG CAP ER PO SCH (08:37)
[2017-01-01] MEDS: PANTOPRAZOLE SOD 40 MG DELAYED RELEASE TAB PO SCH (08:37)
[2017-01-01] MEDS: NYSTATIN SUSP 500,000 U/5 ML CUP SWISH-SWAL SCH ×4 (08:37→20:45)
[2017-01-01] MEDS: LORazepam 0.5 MG TAB PO SCH ×2 (08:37→20:42)
[2017-01-01] MEDS: FUROSEMIDE 40 MG/4 ML VIAL IV PUSH SCH (08:40)
[2017-01-01] MEDS: POTASSIUM CHLORIDE 10 MEQ CONTROLLED RELEASE TAB PO SCH (08:41)
[2017-01-01] MEDS: BUDESONIDE-FORMOTEROL 160/4.5 MCG INHALER INH SCH ×2 (08:42→20:47)
[2017-01-01] MEDS: SODIUM CHLORIDE 0.9% FLUSH 10 ML FLUSH IVF SCH (09:00)
[2017-01-01] MEDS: IRON SUCROSE INJ 200 MG in SODIUM CHLORIDE 0.9% INJ 100 ML IV SCH (12:48)
--- NOTE | 2017-01-01 15:18 | PD.ONC.PN ---
Subjective Subjective Remarks Afebrile overnight. Sitting up in bed in nad Still with significant SOB with activity. No bleeding Objective Data Date Time Temp Pulse Resp B/P Pulse Ox O2 Delivery O2 Flow Rate FiO2 01/01/17 12:00 97.9 115 19 153/95 96 01/01/17 08:08 96 Nasal Cannula 2.00 01/01/17 08:00 97.6 106 19 157/100 99 01/01/17 04:08 97.6 98 16 154/94 97 01/01/17 03:55 96 Nasal Cannula 2.00 01/01/17 01:08 97.5 98 18 160/96 94 12/31/16 23:44 98 Nasal Cannula 2.00 12/31/16 20:45 98.1 99 18 159/97 97 12/31/16 20:13 98 12/31/16 20:00 Nasal Cannula 2.00 12/31/16 16:00 98.2 105 21 151/89 96 12/31/16 15:32 93 Nasal Cannula 2.00 01/01/17 01/01/17 01/01/17 07:00 15:00 23:00 Intake Total 240 ml Output Total 850 ml Balance -610 ml Result Diagram: 01/01/17 0500 01/01/17 0500 Laboratory Results Laboratory Tests Test 01/01/17 05:00 White Blood Count 11.6 TH/MM3 Red Blood Count 3.85 MIL/MM3 Hemoglobin 8.6 GM/DL Hematocrit 28.2 % Mean Corpuscular Volume 73.2 FL Mean Corpuscular Hemoglobin 22.3 PG Mean Corpuscular Hemoglobin 30.5 % Concent Red Cell Distribution Width 23.2 % Platelet Count 431 TH/MM3 Mean Platelet Volume 6.7 FL Neutrophils (%) (Auto) 92.0 % Lymphocytes (%) (Auto) 3.7 % Monocytes (%) (Auto) 4.2 % Eosinophils (%) (Auto) 0.0 % Basophils (%) (Auto) 0.1 % Neutrophils # (Auto) 10.6 TH/MM3 Lymphocytes # (Auto) 0.4 TH/MM3 Monocytes # (Auto) 0.5 TH/MM3 Eosinophils # (Auto) 0.0 TH/MM3 Basophils # (Auto) 0.0 TH/MM3 CBC Comment AUTO DIFF Differential Total Cells 100 Counted Neutrophils % (Manual) 87 % Band Neutrophils % 2 % Lymphocytes % 4 % Monocytes % 4 % Neutrophils # (Manual) 10.7 TH/MM3 Metamyelocytes 1 % Myelocytes 2 % Differential Comment FINAL DIFF MANUAL Platelet Estimate NORMAL Platelet Morphology Comment NORMAL Basophilic Stippling MOD Ovalocytes 1+ Prothrombin Time 35.2 SEC Prothromb Time International 3.0 RATIO Ratio Activated Partial 33.0 SEC Thromboplast Time Sodium Level 138 MEQ/L Potassium Level 3.6 MEQ/L Chloride Level 98 MEQ/L Carbon Dioxide Level 31.8 MEQ/L Anion Gap 8 MEQ/L Blood Urea Nitrogen 17 MG/DL Creatinine 0.90 MG/DL Estimat Glomerular Filtration 89 ML/MIN Rate Random Glucose 260 MG/DL Calcium Level 8.7 MG/DL Total Bilirubin 0.3 MG/DL Aspartate Amino Transf 22 U/L (AST/SGOT) Alanine Aminotransferase 66 U/L (ALT/SGPT) Alkaline Phosphatase 145 U/L Total Protein 5.6 GM/DL Albumin 3.2 GM/DL Culture Results Microbiology Date/Time Procedure Status Source Growth 12/29/16 15:30 Stool Occult Blood (STEFFANIE) - Final Complete Stool Stool HEMOCCULT NEGATIVE 12/29/16 23:30 Stool Occult Blood (STEFFANIE) - Final Complete Stool Stool HEMOCCULT NEGATIVE Administered Medications Medications (Trade) Dose Ordered Sig/Gabi Route PRN Reason Start Time Stop Time Status Last Admin Dose Admin Docusate Sodium (Colace) 100 mg Q12H PO 12/25/16 14:45 01/01/17 04:55 Sodium Chloride (NS Flush) DAILY IVF 12/26/16 09:00 12/31/16 08:38 Heparin Sodium (Porcine) (Heparin Central Flush) DAILY IV FLUSH 12/26/16 09:00 12/29/16 08:09 Sodium Chloride (NS Flush) UNSCH PRN IVF SEE PROTOCOL 12/26/16 08:15 01/01/17 04:55 Heparin Sodium (Porcine) (Heparin Central Flush) UNSCH PRN IV FLUSH SEE PROTOCOL 12/26/16 08:15 12/30/16 06:10 Atorvastatin Calcium (Lipitor) 20 mg HS PO 12/26/16 21:00 12/31/16 20:37 Budesonide/ Formoterol Fumarate (Symbicort 160-4.5 Inh) 2 puff Q12HR INH 12/26/16 09:00 01/01/17 08:42 Diltiazem HCl (Cardizem Cd) 360 mg DAILY PO 12/26/16 09:00 01/01/17 08:37 Montelukast Sodium (Singulair) 10 mg HS PO 12/26/16 21:00 12/31/16 20:36 Sucralfate (Carafate) 1 gm TID PO 12/26/16 09:00 01/01/17 12:17 Cyclobenzaprine HCl (Flexeril) 10 mg Q8H PRN PO spasms 12/26/16 08:15 12/29/16 11:30 Pantoprazole Sodium (Protonix) 40 mg DAILY PO 12/26/16 09:00 01/01/17 08:37 Lorazepam (Ativan) 0.5 mg BID PO 12/26/16 09:00 01/01/17 08:37 Acetaminophen/ Hydrocodone Bitart ([place] 5-325 Mg) 2 tab Q4H PRN PO PAIN SCALE 5 TO 10 12/26/16 08:30 01/01/17 04:55 Hydrocodone Bit/ Homatropine Methylb (Hycodan Liq) 5 ml Q6H PRN PO COUGH 12/26/16 08:30 01/01/17 10:59 Potassium Chloride (KCl) 60 meq DAILY PO 12/27/16 11:15 01/01/17 08:41 Methylprednisolone Sodium Succinate (SoluMEDROL INJ) 60 mg Q6H IV PUSH 12/27/16 20:00 01/01/17 12:47 Furosemide (Lasix Inj) 40 mg DAILY IV PUSH 12/30/16 15:30 01/01/17 08:40 Nystatin 5 ml 5 ml QID SWISH-SWAL 12/31/16 13:00 01/01/17 12:17 Iron Sucrose/ Sodium Chloride (Venofer Inj/NS Inj) 110 ml @ 110 mls/hr DAILY IV 01/01/17 09:00 01/03/17 09:59 01/01/17 12:48 Objective Remarks GENERAL: Older male, sitting up in bed watching TV SKIN: Warm and dry. HEAD: Normocephalic. EYES: No injection or drainage. NECK: Supple, trachea midline. CARDIOVASCULAR: Regular rate and rhythm RESPIRATORY: Expiratory wheeze. Prolonged expiratory phase. On 2L O2 via NC. GASTROINTESTINAL: Abdomen protuberant. Feeling of fullness. Mildly tender to R side, improved. EXTREMITIES: No cyanosis. 2+ edema to RLE. NEUROLOGICAL: No obvious focal deficit. Awake, alert, and oriented x3. Assessment/Plan Assessment 51-year-old male with recurrent pulmonary emboli. --was on Eliquis 2.5mg BID outpatient (prophylactic dosing) h/o Reactive airway disease complicated by frequent exacerbations. Multiple intubations pneumothorax. right lower extremity deep venous thrombosis in December of 2015. Left lung pulmonary embolus December of 2015. Right lung pulmonary embolus in December of 2016. 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 Plan 1. Recurrent pulmonary emboli: patient INR 3.0 today. No obvious bleeding. 2. Continue iron sucrose for severe microcytic anemia. 3. Will likely restart Eliquis at therapeutic dose once INR closer to 2. 4. Monitor for bleeding, labs. Attending Statement The exam, history, and the medical decision-making described in the above note were completed with the assistance of the mid-level provider. I reviewed and agree with the findings presented. I attest that I had a [id number] encounter with the patient on the same day, and personally performed and documented my assessment and findings in the medical record INR still supratherapeutic hold heparin and Coumadin Can be restarted on Eliquis therapeutic dose once INR in lower 2 range. Will get Anti Xa Assay for apixaban Continue IV iron Start folic acid Lucero Swan Jan 01, 2017 15:18 Reuben Cali MD Jan 01, 2017 22:55
--- NOTE | 2017-01-01 16:16 | HHI.PR ---
Subjective Remarks alert afebrile occasional wheeze LESS LE EDEMA Objective Vital Signs Date Time Temp Pulse Resp B/P Pulse Ox O2 Delivery O2 Flow Rate FiO2 01/01/17 12:00 97.9 115 19 153/95 96 01/01/17 08:08 96 Nasal Cannula 2.00 01/01/17 08:00 97.6 106 19 157/100 99 01/01/17 04:08 97.6 98 16 154/94 97 01/01/17 03:55 96 Nasal Cannula 2.00 01/01/17 01:08 97.5 98 18 160/96 94 12/31/16 23:44 98 Nasal Cannula 2.00 12/31/16 20:45 98.1 99 18 159/97 97 12/31/16 20:13 98 12/31/16 20:00 Nasal Cannula 2.00 I/O 12/31/16 12/31/16 12/31/16 01/01/17 01/01/17 01/01/17 07:00 15:00 23:00 07:00 15:00 23:00 Intake Total 400 ml 1250 ml 200 ml 240 ml Output Total 1100 ml 1950 ml 150 ml 850 ml Balance -700 ml -700 ml 50 ml -610 ml Intake Oral 0 ml 1250 ml 200 ml 240 ml IV Total 100 ml Packed Cells 300 ml Output Urine Total 1100 ml 1950 ml 150 ml 850 ml # Bowel Movements 0 0 Result Diagram: 01/01/17 0500 01/01/17 0500 Objective Remarks GENERAL: SKIN: Warm and dry. HEAD: Atraumatic. Normocephalic. EYES: Pupils equal and round. No scleral icterus. No injection or drainage. ENT: No nasal bleeding or discharge. Mucous membranes pink and moist. NECK: Trachea midline. No JVD. CARDIOVASCULAR: Regular rate and rhythm. RESPIRATORY: No accessory muscle use. scattered wheeze GASTROINTESTINAL: Abdomen soft, non-tender, nondistended. Hepatic and splenic margins not palpable. MUSCULOSKELETAL: Extremities without clubbing, cyanosis, or edema. No obvious deformities. NEUROLOGICAL: Awake and alert. No obvious cranial nerve deficits. Motor grossly within normal limits. Five out of 5 muscle strength in the arms and legs. Normal speech. PSYCHIATRIC: Appropriate mood and affect; insight and judgment normal. Assessment and Plan Assessment and Plan respiratory failure acute PE Asthma PLAN anticoags bronchodilator therapy increase activity conslt hematology recurrent PE Mary,Mary Wadie MD Jan 01, 2017 16:16
--- NOTE | 2017-01-01 18:36 | HHI.PR ---
Subjective History of Present Illness Patient have SOB cough and sever wheezing Have Pulmonary embolism... INR 3.7 today holding coumadin ID / Cardiology input noted. Abdominal distension checked abdominal X- ray nothing acute have leg swelling on Lasix 40 mg IV Daily. c/o oral thrush on Nystatin 5 ml PO QID. getting IV Iron therapy. Review of Systems Constitutional Constitutional: Fatigue, Weakness Pulmonary Respiratory: Coughing, Shortness of Breath, Wheezing Musculoskeletal MS Remarks Right Hip Pain. Vitals/Results Intake & Output 12/31/16 12/31/16 01/01/17 15:00 23:00 07:00 Intake Total 1250 ml 200 ml 240 ml Output Total 1950 ml 150 ml 850 ml Balance -700 ml 50 ml -610 ml Intake Oral 1250 ml 200 ml 240 ml Output Urine Total 1950 ml 150 ml 850 ml # Bowel Movements 0 0 Vital Signs Vital Signs Date Time Temp Pulse Resp B/P Pulse Ox O2 Delivery O2 Flow Rate FiO2 01/01/17 16:00 97.3 95 19 165/98 96 01/01/17 12:00 97.9 115 19 153/95 96 01/01/17 08:08 96 Nasal Cannula 2.00 01/01/17 08:00 97.6 106 19 157/100 99 01/01/17 08:00 85 01/01/17 08:00 96 Nasal Cannula 2.00 40 01/01/17 04:08 97.6 98 16 154/94 97 01/01/17 03:55 96 Nasal Cannula 2.00 01/01/17 01:08 97.5 98 18 160/96 94 12/31/16 23:44 98 Nasal Cannula 2.00 12/31/16 20:45 98.1 99 18 159/97 97 12/31/16 20:13 98 12/31/16 20:00 Nasal Cannula 2.00 CBC/BMP: 01/01/17 0500 01/01/17 0500 Lab Results Laboratory Tests Test 01/01/17 05:00 White Blood Count 11.6 TH/MM3 Red Blood Count 3.85 MIL/MM3 Hemoglobin 8.6 GM/DL Hematocrit 28.2 % Mean Corpuscular Volume 73.2 FL Mean Corpuscular Hemoglobin 22.3 PG Mean Corpuscular Hemoglobin 30.5 % Concent Red Cell Distribution Width 23.2 % Platelet Count 431 TH/MM3 Mean Platelet Volume 6.7 FL Neutrophils (%) (Auto) 92.0 % Lymphocytes (%) (Auto) 3.7 % Monocytes (%) (Auto) 4.2 % Eosinophils (%) (Auto) 0.0 % Basophils (%) (Auto) 0.1 % Neutrophils # (Auto) 10.6 TH/MM3 Lymphocytes # (Auto) 0.4 TH/MM3 Monocytes # (Auto) 0.5 TH/MM3 Eosinophils # (Auto) 0.0 TH/MM3 Basophils # (Auto) 0.0 TH/MM3 CBC Comment AUTO DIFF Differential Total Cells 100 Counted Neutrophils % (Manual) 87 % Band Neutrophils % 2 % Lymphocytes % 4 % Monocytes % 4 % Neutrophils # (Manual) 10.7 TH/MM3 Metamyelocytes 1 % Myelocytes 2 % Differential Comment FINAL DIFF MANUAL Platelet Estimate NORMAL Platelet Morphology Comment NORMAL Basophilic Stippling MOD Ovalocytes 1+ Prothrombin Time 35.2 SEC Prothromb Time International 3.0 RATIO Ratio Activated Partial 33.0 SEC Thromboplast Time Sodium Level 138 MEQ/L Potassium Level 3.6 MEQ/L Chloride Level 98 MEQ/L Carbon Dioxide Level 31.8 MEQ/L Anion Gap 8 MEQ/L Blood Urea Nitrogen 17 MG/DL Creatinine 0.90 MG/DL Estimat Glomerular Filtration 89 ML/MIN Rate Random Glucose 260 MG/DL Calcium Level 8.7 MG/DL Total Bilirubin 0.3 MG/DL Aspartate Amino Transf 22 U/L (AST/SGOT) Alanine Aminotransferase 66 U/L (ALT/SGPT) Alkaline Phosphatase 145 U/L Total Protein 5.6 GM/DL Albumin 3.2 GM/DL Physical Exam General General Appearance: Well Developed, Well Nourished, Comfortable, Anxious Eyes Eye Exam: Pupils Equal, Pupils Reactive, Sclera White, Extraocular Movement Intact Ears & Nose Ears & Nose Exam: Nasal Mucosa [place] Throat Throat Exam: Oral Mucosa [place] & Moist, Oral Pharynx Normal Neck Neck Exam: Neck Supple, Trachea Midline Pulmonary Resp Exam: Diminished Breath Sounds Resp Remarks Bilateral wheezing. Cardiology CV Exam: Good Perfusion, Tachycardia Gastrointestinal/Abdomen GI Exam: Soft, Non-Tender, Bowel Sounds Present, Distended Musculoskeletal MS Exam: Joints Intact Integumentary Skin Exam: Warm, Dry Extremeties Extremities Exam: No Edema, Pedal Pulses Palpable, Moderate Edema Extremeties Remarks Right hip mild tenderness Neurologic Neuro Exam: Alert, Awake, Oriented, Speech Clear, Moving All Extremities, No Focal Deficits Psychiatric Psych Exam: Appropriate Responses VTE Prophylaxis VTE Prophylaxis Meds: Heparin PUD Prophylasis PUD Prophylaxis: Protonix, Carafate Assessment/Plan Problem List: (1) Pulmonary embolism (2) Sepsis (3) Acute asthma exacerbation (4) Hypertension (5) Hyperlipidemia (6) Anemia (7) Abscess of hip, right Plan: hx of infection, currently on abx (8) S/P total hip arthroplasty Assessment/Plan continue with BIPAP PRN Duonebs neublization IV steroids 60 mg IV q 6 Pulmonary input noted on Hycodan PRN cough hx DVT and PE, was on Eliquis now with recurrent PE, failed on Eliquis appreciate cardiology input, High INR 3.9 today holding coumadin drop in HH, will monitor. s/p PRBC Transfusion ..stable. Checks stools for OB x 3 continue Micafungin, end date 12/31 repeat lactic acid noted 3.0 continue Zithromax ID input noted.. follow CBC sinus tachycardia.. will monitor, on Cardizem Pain management, on [place] and Flexeril PRN noted with elevated blood glucose, on steroids on accuchecks AC/HS with ISS PPI and carafate for GI prophylaxis Hypokalemia resolved. Abdominal distension check abdominal X- ray have leg swelling on Lasix 40 mg IV Daily. Oral thrush start Nystatin 5 ml PO QID. Check CBC with diff CMP and PT/ INR in AM. Condition guarded, multiple admissions, D/W patient. Discussed Condition with: Patient Problem Qualifiers (1) Pulmonary embolism: Qualified Code: I26.99 - Other pulmonary embolism without acute cor pulmonale, unspecified chronicity (2) Sepsis: Qualified Code: A41.9 - Sepsis, due to unspecified organism (3) Acute asthma exacerbation: Qualified Code: J45.901 - Asthma with acute exacerbation, unspecified asthma severity (4) Hypertension: Qualified Code: I10 - Essential hypertension (5) Hyperlipidemia: Qualified Code: E78.5 - Hyperlipidemia, unspecified hyperlipidemia type (6) Anemia: Qualified Code: D64.9 - Anemia, unspecified type (7) S/P total hip arthroplasty: Qualified Code: Z96.641 - Status post total replacement of right hip Myron Woodward MD Jan 01, 2017 18:36
--- NOTE | 2017-01-01 18:45 | PD.CARD.PN ---
Subjective Subjective Remarks No CP, still c/o SOB and wheezing, edema improved Objective Medications Current Medications Medications (Trade) Dose Ordered Sig/Gabi Route Start Time Stop Time Status Last Admin (Zofran Inj) 4 mg Q6H PRN IVP 12/25/16 14:45 (Colace) 100 mg Q12H PO 12/25/16 14:45 01/01/17 14:45 (Narcan Inj) 0.4 mg UNSCH PRN IV 12/25/16 14:45 (NS Flush) DAILY IVF 12/26/16 09:00 12/31/16 08:38 (Heparin Central Flush) DAILY IV FLUSH 12/26/16 09:00 01/01/17 17:51 (NS Flush) UNSCH PRN IVF 12/26/16 08:15 01/01/17 04:55 (Heparin Central Flush) UNSCH PRN IV FLUSH 12/26/16 08:15 12/30/16 06:10 (NS Flush) UNSCH PRN IVF 12/26/16 08:15 (Lipitor) 20 mg HS PO 12/26/16 21:00 12/31/16 20:37 (Symbicort 160-4.5 Inh) 2 puff Q12HR INH 12/26/16 09:00 01/01/17 08:42 (Cardizem Cd) 360 mg DAILY PO 12/26/16 09:00 01/01/17 08:37 (Singulair) 10 mg HS PO 12/26/16 21:00 12/31/16 20:36 (Carafate) 1 gm TID PO 12/26/16 09:00 01/01/17 17:48 (Flexeril) 10 mg Q8H PRN PO 12/26/16 08:15 12/29/16 11:30 (Protonix) 40 mg DAILY PO 12/26/16 09:00 01/01/17 08:37 (D50w (Vial) Inj) 25 ml UNSCH PRN IV PUSH 12/26/16 08:15 (Glucagon Inj) 1 mg UNSCH PRN OTHER 12/26/16 08:15 (Milk Of Magnesia Liq) 30 ml DAILY PRN PO 12/26/16 08:15 (Ativan) 0.5 mg BID PO 12/26/16 09:00 01/01/17 08:37 ([place] 5-325 Mg) 2 tab Q4H PRN PO 12/26/16 08:30 01/01/17 16:29 (Hycodan Liq) 5 ml Q6H PRN PO 12/26/16 08:30 01/01/17 10:59 (KCl) 60 meq DAILY PO 12/27/16 11:15 01/01/17 08:41 (SoluMEDROL INJ) 60 mg Q6H IV PUSH 12/27/16 20:00 01/01/17 12:47 (Lasix Inj) 40 mg DAILY IV PUSH 12/30/16 15:30 01/01/17 08:40 (Pill Splitter) 1 ea UNSCH PRN OTHER 12/31/16 08:45 (Mycostatin Liq) 5 ml QID SWISH-SWAL 12/31/16 13:00 01/01/17 17:48 Polyethylene Glycol 17 gm 17 gm DAILY PRN PO 12/31/16 10:15 (Venofer Inj/NS Inj) 110 ml @ 110 mls/hr DAILY IV 01/01/17 09:00 01/03/17 09:59 01/01/17 12:48 Vital Signs / I&O Vital Signs Date Time Temp Pulse Resp B/P Pulse Ox O2 Delivery O2 Flow Rate FiO2 01/01/17 16:00 97.3 95 19 165/98 96 01/01/17 12:00 97.9 115 19 153/95 96 01/01/17 08:08 96 Nasal Cannula 2.00 01/01/17 08:00 97.6 106 19 157/100 99 01/01/17 08:00 85 01/01/17 08:00 96 Nasal Cannula 2.00 40 01/01/17 04:08 97.6 98 16 154/94 97 01/01/17 03:55 96 Nasal Cannula 2.00 01/01/17 01:08 97.5 98 18 160/96 94 12/31/16 23:44 98 Nasal Cannula 2.00 12/31/16 20:45 98.1 99 18 159/97 97 12/31/16 20:13 98 12/31/16 20:00 Nasal Cannula 2.00 I/O 12/31/16 12/31/16 12/31/16 01/01/17 01/01/1726/17 07:00 15:00 23:00 07:00 15:00 23:00 Intake Total 400 ml 1250 ml 200 ml 240 ml 1470 ml Output Total 1100 ml 1950 ml 150 ml 850 ml 850 ml Balance -700 ml -700 ml 50 ml -610 ml 620 ml Intake Oral 0 ml 1250 ml 200 ml 240 ml 1470 ml IV Total 100 ml Packed Cells 300 ml Output Urine Total 1100 ml 1950 ml 150 ml 850 ml 850 ml # Bowel Movements 0 0 2 Physical Exam GENERAL: In NAD SKIN: Warm and dry. HEAD: Normocephalic. EYES: No scleral icterus. No injection or drainage. NECK: Supple, trachea midline. No JVD or lymphadenopathy. CARDIOVASCULAR: Regular rate and rhythm without murmurs, gallops, or rubs. RESPIRATORY: Bilat wheezes. No accessory muscle use. GASTROINTESTINAL: Abdomen soft, non-tender, nondistended. MUSCULOSKELETAL: No cyanosis, no edema. Laboratory Laboratory Tests Test 01/01/17 05:00 White Blood Count 11.6 TH/MM3 Red Blood Count 3.85 MIL/MM3 Hemoglobin 8.6 GM/DL Hematocrit 28.2 % Mean Corpuscular Volume 73.2 FL Mean Corpuscular Hemoglobin 22.3 PG Mean Corpuscular Hemoglobin 30.5 % Concent Red Cell Distribution Width 23.2 % Platelet Count 431 TH/MM3 Mean Platelet Volume 6.7 FL Neutrophils (%) (Auto) 92.0 % Lymphocytes (%) (Auto) 3.7 % Monocytes (%) (Auto) 4.2 % Eosinophils (%) (Auto) 0.0 % Basophils (%) (Auto) 0.1 % Neutrophils # (Auto) 10.6 TH/MM3 Lymphocytes # (Auto) 0.4 TH/MM3 Monocytes # (Auto) 0.5 TH/MM3 Eosinophils # (Auto) 0.0 TH/MM3 Basophils # (Auto) 0.0 TH/MM3 CBC Comment AUTO DIFF Differential Total Cells 100 Counted Neutrophils % (Manual) 87 % Band Neutrophils % 2 % Lymphocytes % 4 % Monocytes % 4 % Neutrophils # (Manual) 10.7 TH/MM3 Metamyelocytes 1 % Myelocytes 2 % Differential Comment FINAL DIFF MANUAL Platelet Estimate NORMAL Platelet Morphology Comment NORMAL Basophilic Stippling MOD Ovalocytes 1+ Prothrombin Time 35.2 SEC Prothromb Time International 3.0 RATIO Ratio Activated Partial 33.0 SEC Thromboplast Time Sodium Level 138 MEQ/L Potassium Level 3.6 MEQ/L Chloride Level 98 MEQ/L Carbon Dioxide Level 31.8 MEQ/L Anion Gap 8 MEQ/L Blood Urea Nitrogen 17 MG/DL Creatinine 0.90 MG/DL Estimat Glomerular Filtration 89 ML/MIN Rate Random Glucose 260 MG/DL Calcium Level 8.7 MG/DL Total Bilirubin 0.3 MG/DL Aspartate Amino Transf 22 U/L (AST/SGOT) Alanine Aminotransferase 66 U/L (ALT/SGPT) Alkaline Phosphatase 145 U/L Total Protein 5.6 GM/DL Albumin 3.2 GM/DL Imaging Last Impressions Abdomen/Pelvis CT 12/31/16 0000 Signed Impressions: Service Date/Time: Saturday, December 31, 2016 21:53 - CONCLUSION: 1. No renal calculi or hydronephrosis. 2. Diverticulosis without diverticulitis. Davion Carranza MD Abdomen X-Ray 12/30/16 0000 Signed Impressions: Service Date/Time: Friday, December 30, 2016 15:57 - CONCLUSION: Nonspecific bowel gas pattern with moderate amount of stool present greatest in the right side of the colon. Jeferson Cervantes MD Lower Extremity Ultrasound 12/27/16 0000 Signed Impressions: Service Date/Time: Tuesday, December 27, 2016 10:06 - CONCLUSION: Normal examination. Glendy Harry MD Hip X-Ray 12/26/16 0000 Signed Impressions: Service Date/Time: December 16:04 - CONCLUSION: Migration of the greater trochanteric screw laterally with separation of the side plate by approximately 7-8 mm. Glendy Harry MD Femur X-Ray 12/26/16 0000 Signed Impressions: Service Date/Time: December 16:04 - CONCLUSION: Migration of the screw laterally at the level of the greater trochanteric component with separation of the plate by 7-8 mm. Glendy Harry MD Chest X-Ray 12/25/16 1238 Signed Impressions: Service Date/Time: Sunday, December 25, 2016 13:27 - CONCLUSION: No focal infiltrates seen. Adriel Thompson MD CT Angiography 12/25/16 0000 Signed Impressions: Service Date/Time: Sunday, December 25, 2016 14:45 - CONCLUSION: Positive for pulmonary embolism in the right lower lobe with a large filling defect extending into at least 3 segmental arteries. No evidence of pleural effusion. Adriel Thomspon MD Assessment and Plan Problem List: (1) Pulmonary embolism (2) S/P total hip arthroplasty (3) Acute asthma exacerbation (4) Acute hypercapnic respiratory failure (5) Hypertension (6) Hyperlipidemia Assessment and Plan LE edema improved, continue diuretics. Echo w nl RV fx and size, nl LV fx. Continue anticoagulation including Coumadin. Continue tx for asthma exacerbation incl steroids as per Dr. Hernandez. Sinus tachycardia likely related to PE and bronchodilators. Continue monitoring. Increase activity as tolerated. Problem Qualifiers (1) Pulmonary embolism: Qualified Code: I26.99 - Other pulmonary embolism without acute cor pulmonale, unspecified chronicity (2) Acute asthma exacerbation: Qualified Code: J45.901 - Asthma with acute exacerbation, unspecified asthma severity (3) Hypertension: Qualified Code: I10 - Essential hypertension (4) Hyperlipidemia: Qualified Code: E78.5 - Hyperlipidemia, unspecified hyperlipidemia type Adam Moody MD Jan 01, 2017 18:45
[2017-01-01] MEDS: MONTELUKAST SODIUM 10 MG TAB PO SCH (20:42)
[2017-01-01] MEDS: ATORVASTATIN 20 MG TAB PO SCH (20:42)
[2017-01-02] VITALS (11 sets, daily range): BP systolic 139–164; BP diastolic 81–105; PULSE 85–107; RESP 20; TEMP 97.4–98.4; O2SAT 94–98
[2017-01-02] MEDS: RESP: ALBUTEROL 2.5 MG/IPRATROPIUM 0.5 MG NEB (SCH) NEB ×7 (00:31→23:45)
[2017-01-02] MEDS: methylPREDNISolone SOD SUCC 125 MG/2 ML VIAL IV PUSH SCH ×3 (01:26→14:52)
[2017-01-02] MEDS: ACETAMINOPHEN/HYDROcodone 325 MG/5 MG TAB PO PRN ×4 (01:26→20:44)
[2017-01-02] MEDS: DOCUSATE SODIUM 100 MG CAP PO SCH ×2 (01:27→14:57)
[2017-01-02 05:59] LABS: AUTOMATED NEUTROPHIL # 10.1 TH/MM3 (1.8-7.7); BASOPHIL % 0.1 % (0.0-2.0); EOSINOPHIL % 0.1 % (0.0-4.0); HEMATOCRIT 27.7 % (39.0-51.0); LYMPH % 2.9 % (9.0-44.0); LYMPHOCYTE # 0.3 TH/MM3 (1.0-4.8); MEAN CELL VOLUME 73.9 FL (80.0-100.0); MEAN CORPUSCULAR HEMOGLOBIN 23.2 PG (27.0-34.0); MEAN CORPUSCULAR HGB CONC 31.4 % (32.0-36.0); MONO % 4.8 % (0.0-8.0); NEUT % 92.1 % (16.0-70.0); PLATELET COUNT 401 TH/MM3 (150-450); RED BLOOD COUNT 3.75 MIL/MM3 (4.50-5.90); RED CELL DISTRIBUTION WIDTH 23.4 % (11.6-17.2)
[2017-01-02 06:01] LABS: HEMO FLAGS AUTO DIFF
[2017-01-02 06:02] LABS: APTT (PATIENT) 33.5 SEC (24.3-30.1); INTERNATIONAL NORMALIZED RATIO 2.9 RATIO; PROTHROMBIN TIME - PATIENT 33.3 SEC (9.8-11.6)
[2017-01-02] MEDS: INSULIN ASPART SUPPLEMENTAL SCALE SQ SCH ×4 (06:06→20:44)
[2017-01-02 06:32] LABS: ANION GAP 7 MEQ/L (5-15); AST (GOT) 24 U/L (15-37); BICARBONATE 32.1 MEQ/L (21.0-32.0); BLOOD UREA NITROGEN 16 MG/DL (7-18); CHLORIDE 97 MEQ/L (98-107); GLOMERULAR FILTRATION RATE 87 ML/MIN (>89); POTASSIUM 3.7 MEQ/L (3.5-5.1); SODIUM (NA) 136 MEQ/L (136-145)
[2017-01-02 06:35] LABS: ALKALINE PHOSPHATASE 147 U/L (45-117); ALT (GPT) 63 U/L (12-78); TOTAL BILIRUBIN ADULT 0.3 MG/DL (0.2-1.0)
[2017-01-02] MEDS: HYDROcodone 5 MG/HOMATROPINE 1.5 MG SYRUP 5 ML CUP PO PRN ×2 (06:43→22:23)
[2017-01-02 08:16] LABS: BANDS 4 % (0-6); CORRECTED NUCLEATED RBC 2 /100 WBC (0-0); METAMYELOCYTES 1 % (0-1); MYELOCYTES 4 % (0-0); NEUTROPHIL # MANUAL DIFF 10.5 TH/MM3 (1.8-7.7); POLYS (SEG NEUTROPHILS) 86 % (16-70); WBC DIFF SAMPLE 100
[2017-01-02 08:17] LABS: OVALOCYTES 1+ (NORMAL)
[2017-01-02 08:18] LABS: KERATOCYTES OCC (NORMAL); PLATELET ESTIMATE SMEAR HIGH (NORMAL); PLATELET MORPHOLOGY NORMAL (NORMAL); SCAN/DIFF FINAL DIFF MANUAL
[2017-01-02] MEDS: POTASSIUM CHLORIDE 10 MEQ CONTROLLED RELEASE TAB PO SCH (09:00)
[2017-01-02] MEDS: BUDESONIDE-FORMOTEROL 160/4.5 MCG INHALER INH SCH ×2 (09:00→20:42)
[2017-01-02] MEDS: SODIUM CHLORIDE 0.9% FLUSH 10 ML FLUSH IVF SCH (09:00)
[2017-01-02] MEDS: SUCRALFATE 1 GM TAB PO SCH ×3 (09:00→17:55)
[2017-01-02] MEDS: LORazepam 0.5 MG TAB PO SCH ×2 (09:44→20:42)
[2017-01-02] MEDS: PANTOPRAZOLE SOD 40 MG DELAYED RELEASE TAB PO SCH (09:44)
[2017-01-02] MEDS: DILTIAZEM-CD 180 MG CAP ER PO SCH (09:44)
[2017-01-02] MEDS: FOLIC ACID 1 MG TAB PO SCH (09:44)
[2017-01-02] MEDS: NYSTATIN SUSP 500,000 U/5 ML CUP SWISH-SWAL SCH ×4 (09:46→20:42)
[2017-01-02] MEDS: FUROSEMIDE 40 MG/4 ML VIAL IV PUSH SCH (09:46)
[2017-01-02 11:36] LABS: INTERNATIONAL NORMALIZED RATIO 2.7 RATIO; PROTHROMBIN TIME - PATIENT 31.1 SEC (9.8-11.6)
--- NOTE | 2017-01-02 12:45 | PD.CARD.PN ---
Subjective Subjective Remarks SOB and wheezing, no CP, edema improved Objective Medications Current Medications Medications (Trade) Dose Ordered Sig/Gabi Route Start Time Stop Time Status Last Admin (Zofran Inj) 4 mg Q6H PRN IVP 12/25/16 14:45 (Colace) 100 mg Q12H PO 12/25/16 14:45 01/02/17 01:27 (Narcan Inj) 0.4 mg UNSCH PRN IV 12/25/16 14:45 (NS Flush) DAILY IVF 12/26/16 09:00 12/31/16 08:38 (Heparin Central Flush) DAILY IV FLUSH 12/26/16 09:00 01/01/17 17:51 (NS Flush) UNSCH PRN IVF 12/26/16 08:15 01/01/17 04:55 (Heparin Central Flush) UNSCH PRN IV FLUSH 12/26/16 08:15 12/30/16 06:10 (NS Flush) UNSCH PRN IVF 12/26/16 08:15 (Lipitor) 20 mg HS PO 12/26/16 21:00 01/01/17 20:42 (Symbicort 160-4.5 Inh) 2 puff Q12HR INH 12/26/16 09:00 01/02/17 09:00 (Cardizem Cd) 360 mg DAILY PO 12/26/16 09:00 01/02/17 09:44 (Singulair) 10 mg HS PO 12/26/16 21:00 01/01/17 20:42 (Carafate) 1 gm TID PO 12/26/16 09:00 01/02/17 11:26 (Flexeril) 10 mg Q8H PRN PO 12/26/16 08:15 12/29/16 11:30 (Protonix) 40 mg DAILY PO 12/26/16 09:00 01/02/17 09:44 (D50w (Vial) Inj) 25 ml UNSCH PRN IV PUSH 12/26/16 08:15 (Glucagon Inj) 1 mg UNSCH PRN OTHER 12/26/16 08:15 (Milk Of Magnesia Liq) 30 ml DAILY PRN PO 12/26/16 08:15 (Ativan) 0.5 mg BID PO 12/26/16 09:00 01/02/17 09:44 ([place] 5-325 Mg) 2 tab Q4H PRN PO 12/26/16 08:30 01/02/17 05:43 (Hycodan Liq) 5 ml Q6H PRN PO 12/26/16 08:30 01/02/17 06:43 (KCl) 60 meq DAILY PO 12/27/16 11:15 01/02/17 09:00 (SoluMEDROL INJ) 60 mg Q6H IV PUSH 12/27/16 20:00 01/02/17 09:46 (Lasix Inj) 40 mg DAILY IV PUSH 12/30/16 15:30 01/02/17 09:46 (Pill Splitter) 1 ea UNSCH PRN OTHER 12/31/16 08:45 (Mycostatin Liq) 5 ml QID SWISH-SWAL 12/31/16 13:00 01/02/17 11:26 Polyethylene Glycol 17 gm 17 gm DAILY PRN PO 12/31/16 10:15 (Venofer Inj/NS Inj) 110 ml @ 110 mls/hr DAILY IV 01/01/17 09:00 01/03/17 09:59 01/01/17 12:48 (Folate) 1 mg DAILY PO 01/02/17 09:00 01/02/17 09:44 Vital Signs / I&O Vital Signs Date Time Temp Pulse Resp B/P Pulse Ox O2 Delivery O2 Flow Rate FiO2 01/02/17 08:00 97.4 104 20 157/89 95 01/02/17 07:34 98 Nasal Cannula 2.00 01/02/17 04:34 94 Nasal Cannula 2.00 01/02/17 04:00 98.1 95 20 156/86 94 01/02/17 02:28 107 01/02/17 02:22 18 01/02/17 00:32 97 Nasal Cannula 2.00 01/02/17 00:00 97.6 100 20 160/98 94 01/01/17 22:00 Nasal Cannula 2.00 01/01/17 19:44 97 Nasal Cannula 2.00 01/01/17 19:00 97.6 96 20 153/95 97 01/01/17 16:00 97.3 95 19 165/98 96 I/O 01/01/17 01/01/17 01/01/17 01/02/17 01/02/17 4/27/17 07:00 15:00 23:00 07:00 15:00 23:00 Intake Total 240 ml 1470 ml 320 ml Output Total 850 ml 850 ml 550 ml Balance -610 ml 620 ml -230 ml Intake Oral 240 ml 1470 ml 320 ml Output Urine Total 850 ml 850 ml 550 ml # Bowel Movements 0 2 Physical Exam GENERAL: In NAD SKIN: Warm and dry. HEAD: Normocephalic. EYES: No scleral icterus. No injection or drainage. NECK: Supple, trachea midline. No JVD or lymphadenopathy. CARDIOVASCULAR: Regular rate and rhythm without murmurs, gallops, or rubs. RESPIRATORY: Bilat wheezes. No accessory muscle use. GASTROINTESTINAL: Abdomen soft, non-tender, nondistended. MUSCULOSKELETAL: No cyanosis, no edema. Laboratory Laboratory Tests Test 01/02/17 01/02/17 05:35 11:15 White Blood Count 11.0 TH/MM3 Red Blood Count 3.75 MIL/MM3 Hemoglobin 8.7 GM/DL Hematocrit 27.7 % Mean Corpuscular Volume 73.9 FL Mean Corpuscular Hemoglobin 23.2 PG Mean Corpuscular Hemoglobin 31.4 % Concent Red Cell Distribution Width 23.4 % Platelet Count 401 TH/MM3 Mean Platelet Volume 6.8 FL Neutrophils (%) (Auto) 92.1 % Lymphocytes (%) (Auto) 2.9 % Monocytes (%) (Auto) 4.8 % Eosinophils (%) (Auto) 0.1 % Basophils (%) (Auto) 0.1 % Neutrophils # (Auto) 10.1 TH/MM3 Lymphocytes # (Auto) 0.3 TH/MM3 Monocytes # (Auto) 0.5 TH/MM3 Eosinophils # (Auto) 0.0 TH/MM3 Basophils # (Auto) 0.0 TH/MM3 CBC Comment AUTO DIFF Differential Total Cells 100 Counted Neutrophils % (Manual) 86 % Band Neutrophils % 4 % Lymphocytes % 3 % Monocytes % 2 % Neutrophils # (Manual) 10.5 TH/MM3 Metamyelocytes 1 % Myelocytes 4 % Nucleated Red Blood Cells 2 /100 WBC Differential Comment FINAL DIFF MANUAL Platelet Estimate HIGH Platelet Morphology Comment NORMAL Ovalocytes 1+ Keratocytes OCC Prothrombin Time 33.3 SEC 31.1 SEC Prothromb Time International 2.9 RATIO 2.7 RATIO Ratio Activated Partial 33.5 SEC Thromboplast Time Sodium Level 136 MEQ/L Potassium Level 3.7 MEQ/L Chloride Level 97 MEQ/L Carbon Dioxide Level 32.1 MEQ/L Anion Gap 7 MEQ/L Blood Urea Nitrogen 16 MG/DL Creatinine 0.91 MG/DL Estimat Glomerular Filtration 87 ML/MIN Rate Random Glucose 300 MG/DL Calcium Level 8.6 MG/DL Total Bilirubin 0.3 MG/DL Aspartate Amino Transf 24 U/L (AST/SGOT) Alanine Aminotransferase 63 U/L (ALT/SGPT) Alkaline Phosphatase 147 U/L Total Protein 5.5 GM/DL Albumin 3.2 GM/DL Imaging Last Impressions Abdomen/Pelvis CT 12/31/16 0000 Signed Impressions: Service Date/Time: Saturday, December 31, 2016 21:53 - CONCLUSION: 1. No renal calculi or hydronephrosis. 2. Diverticulosis without diverticulitis. Davion Carranza MD Abdomen X-Ray 12/30/16 0000 Signed Impressions: Service Date/Time: Friday, December 30, 2016 15:57 - CONCLUSION: Nonspecific bowel gas pattern with moderate amount of stool present greatest in the right side of the colon. Jeferson Cervantes MD Lower Extremity Ultrasound 12/27/16 0000 Signed Impressions: Service Date/Time: Tuesday, December 27, 2016 10:06 - CONCLUSION: Normal examination. Glendy Harry MD Hip X-Ray 12/26/16 0000 Signed Impressions: Service Date/Time: December 16:04 - CONCLUSION: Migration of the greater trochanteric screw laterally with separation of the side plate by approximately 7-8 mm. Glendy Harry MD Femur X-Ray 12/26/16 0000 Signed Impressions: Service Date/Time: December 16:04 - CONCLUSION: Migration of the screw laterally at the level of the greater trochanteric component with separation of the plate by 7-8 mm. Glendy Harry MD Chest X-Ray 12/25/16 1238 Signed Impressions: Service Date/Time: Sunday, December 25, 2016 13:27 - CONCLUSION: No focal infiltrates seen. Adriel Thompson MD CT Angiography 12/25/16 0000 Signed Impressions: Service Date/Time: Sunday, December 25, 2016 14:45 - CONCLUSION: Positive for pulmonary embolism in the right lower lobe with a large filling defect extending into at least 3 segmental arteries. No evidence of pleural effusion. Adriel Thompson MD Assessment and Plan Problem List: (1) Pulmonary embolism (2) S/P total hip arthroplasty (3) Acute asthma exacerbation (4) Acute hypercapnic respiratory failure (5) Hypertension (6) Hyperlipidemia Assessment and Plan LE edema now improved, continue diuretics. Echo w nl RV fx and size, nl LV fx. Continue anticoagulation including Coumadin. Continue tx for asthma exacerbation incl steroids as per Dr. Hernandez. Sinus tachycardia was likely related to PE and bronchodilators. Continue monitoring. Increase activity as tolerated. No new cardiac issues. Problem Qualifiers (1) Pulmonary embolism: Qualified Code: I26.99 - Other pulmonary embolism without acute cor pulmonale, unspecified chronicity (2) Acute asthma exacerbation: Qualified Code: J45.901 - Asthma with acute exacerbation, unspecified asthma severity (3) Hypertension: Qualified Code: I10 - Essential hypertension (4) Hyperlipidemia: Qualified Code: E78.5 - Hyperlipidemia, unspecified hyperlipidemia type Adam Moody MD Jan 02, 2017 12:45
[2017-01-02] MEDS: IRON SUCROSE INJ 200 MG in SODIUM CHLORIDE 0.9% INJ 100 ML IV SCH (15:37)
[2017-01-02] MEDS: MONTELUKAST SODIUM 10 MG TAB PO SCH (20:42)
[2017-01-02] MEDS: methylPREDNISolone SOD SUCC 40 MG/1 ML VIAL IV PUSH SCH (20:42)
[2017-01-02] MEDS: ATORVASTATIN 20 MG TAB PO SCH (20:42)
--- NOTE | 2017-01-02 22:44 | PD.ONC.PN ---
Subjective Subjective Remarks sitting up. relatively comfortable. some dyspnea no fevers/no bleeding Objective Data Date Time Temp Pulse Resp B/P Pulse Ox O2 Delivery O2 Flow Rate FiO2 01/02/17 20:00 98.4 90 20 152/87 97 01/02/17 16:00 97.5 93 20 139/81 96 01/02/17 12:00 97.9 104 20 164/105 97 01/02/17 08:00 85 01/02/17 08:00 97.4 104 20 157/89 95 01/02/17 08:00 96 Nasal Cannula 2.00 40 01/02/17 07:34 98 Nasal Cannula 2.00 01/02/17 04:34 94 Nasal Cannula 2.00 01/02/17 04:00 98.1 95 20 156/86 94 01/02/17 02:28 107 01/02/17 02:22 18 01/02/17 00:32 97 Nasal Cannula 2.00 01/02/17 00:00 97.6 100 20 160/98 94 01/02/17 01/02/17 01/02/17 07:00 15:00 23:00 Intake Total 480 ml Output Total 175 ml Balance 305 ml Result Diagram: 01/02/17 0535 01/02/17 0535 Laboratory Results Laboratory Tests Test 01/02/17 01/02/17 05:35 11:15 White Blood Count 11.0 TH/MM3 Red Blood Count 3.75 MIL/MM3 Hemoglobin 8.7 GM/DL Hematocrit 27.7 % Mean Corpuscular Volume 73.9 FL Mean Corpuscular Hemoglobin 23.2 PG Mean Corpuscular Hemoglobin 31.4 % Concent Red Cell Distribution Width 23.4 % Platelet Count 401 TH/MM3 Mean Platelet Volume 6.8 FL Neutrophils (%) (Auto) 92.1 % Lymphocytes (%) (Auto) 2.9 % Monocytes (%) (Auto) 4.8 % Eosinophils (%) (Auto) 0.1 % Basophils (%) (Auto) 0.1 % Neutrophils # (Auto) 10.1 TH/MM3 Lymphocytes # (Auto) 0.3 TH/MM3 Monocytes # (Auto) 0.5 TH/MM3 Eosinophils # (Auto) 0.0 TH/MM3 Basophils # (Auto) 0.0 TH/MM3 CBC Comment AUTO DIFF Differential Total Cells 100 Counted Neutrophils % (Manual) 86 % Band Neutrophils % 4 % Lymphocytes % 3 % Monocytes % 2 % Neutrophils # (Manual) 10.5 TH/MM3 Metamyelocytes 1 % Myelocytes 4 % Nucleated Red Blood Cells 2 /100 WBC Differential Comment FINAL DIFF MANUAL Platelet Estimate HIGH Platelet Morphology Comment NORMAL Ovalocytes 1+ Keratocytes OCC Prothrombin Time 33.3 SEC 31.1 SEC Prothromb Time International 2.9 RATIO 2.7 RATIO Ratio Activated Partial 33.5 SEC Thromboplast Time Sodium Level 136 MEQ/L Potassium Level 3.7 MEQ/L Chloride Level 97 MEQ/L Carbon Dioxide Level 32.1 MEQ/L Anion Gap 7 MEQ/L Blood Urea Nitrogen 16 MG/DL Creatinine 0.91 MG/DL Estimat Glomerular Filtration 87 ML/MIN Rate Random Glucose 300 MG/DL Calcium Level 8.6 MG/DL Total Bilirubin 0.3 MG/DL Aspartate Amino Transf 24 U/L (AST/SGOT) Alanine Aminotransferase 63 U/L (ALT/SGPT) Alkaline Phosphatase 147 U/L Total Protein 5.5 GM/DL Albumin 3.2 GM/DL Administered Medications Medications (Trade) Dose Ordered Sig/Gabi Route PRN Reason Start Time Stop Time Status Last Admin Dose Admin Docusate Sodium (Colace) 100 mg Q12H PO 12/25/16 14:45 01/02/17 14:57 Sodium Chloride (NS Flush) DAILY IVF 12/26/16 09:00 12/31/16 08:38 Heparin Sodium (Porcine) (Heparin Central Flush) DAILY IV FLUSH 12/26/16 09:00 01/01/17 17:51 Sodium Chloride (NS Flush) UNSCH PRN IVF SEE PROTOCOL 12/26/16 08:15 01/01/17 04:55 Heparin Sodium (Porcine) (Heparin Central Flush) UNSCH PRN IV FLUSH SEE PROTOCOL 12/26/16 08:15 12/30/16 06:10 Atorvastatin Calcium (Lipitor) 20 mg HS PO 12/26/16 21:00 01/02/17 20:42 Budesonide/ Formoterol Fumarate (Symbicort 160-4.5 Inh) 2 puff Q12HR INH 12/26/16 09:00 01/02/17 20:42 Diltiazem HCl (Cardizem Cd) 360 mg DAILY PO 12/26/16 09:00 01/02/17 09:44 Montelukast Sodium (Singulair) 10 mg HS PO 12/26/16 21:00 01/02/17 20:42 Sucralfate (Carafate) 1 gm TID PO 12/26/16 09:00 01/02/17 17:55 Cyclobenzaprine HCl (Flexeril) 10 mg Q8H PRN PO spasms 12/26/16 08:15 12/29/16 11:30 Pantoprazole Sodium (Protonix) 40 mg DAILY PO 12/26/16 09:00 01/02/17 09:44 Lorazepam (Ativan) 0.5 mg BID PO 12/26/16 09:00 01/02/17 20:42 Acetaminophen/ Hydrocodone Bitart ([place] 5-325 Mg) 2 tab Q4H PRN PO PAIN SCALE 5 TO 10 12/26/16 08:30 01/02/17 20:44 Hydrocodone Bit/ Homatropine Methylb (Hycodan Liq) 5 ml Q6H PRN PO COUGH 12/26/16 08:30 01/02/17 22:23 Potassium Chloride (KCl) 60 meq DAILY PO 12/27/16 11:15 01/02/17 09:00 Furosemide (Lasix Inj) 40 mg DAILY IV PUSH 12/30/16 15:30 01/02/17 09:46 Nystatin 5 ml 5 ml QID SWISH-SWAL 12/31/16 13:00 01/02/17 20:42 Iron Sucrose/ Sodium Chloride (Venofer Inj/NS Inj) 110 ml @ 110 mls/hr DAILY IV 01/01/17 09:00 01/03/17 09:59 01/02/17 15:37 Folic Acid (Folate) 1 mg DAILY PO 01/02/17 09:00 01/02/17 09:44 Methylprednisolone Sodium Succinate (SoluMEDROL INJ) 40 mg Q6H IV PUSH 01/02/17 20:00 01/02/17 20:42 Objective Remarks GENERAL: nad SKIN: Warm and dry. CARDIOVASCULAR: Regular rate and rhythm without murmurs. RESPIRATORY: Breath sounds equal bilaterally. No accessory muscle use. GASTROINTESTINAL: Abdomen soft, non-tender, nondistended. EXTREMITIES: No cyanosis, or edema. Assessment/Plan Assessment 51-year-old male with recurrent pulmonary emboli. --was on Eliquis 2.5mg BID outpatient (prophylactic dosing) h/o Reactive airway disease complicated by frequent exacerbations. Multiple intubations pneumothorax. right lower extremity deep venous thrombosis in December of 2015. Left lung pulmonary embolus December of 2015. Right lung pulmonary embolus in December of 2016. 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 Plan 1. Recurrent pulmonary emboli: patient INR 32.7 today. No obvious bleeding. 2. Continue iron sucrose for severe microcytic anemia. 3. Will restart Eliquis at therapeutic dose once INR closer to 2-- possibly tomorrow. Will check Factor anti X a for apixiban 4. Monitor for bleeding, labs. Reuben Cali MD Jan 02, 2017 22:44
[2017-01-03] VITALS (9 sets, daily range): BP systolic 146–170; BP diastolic 89–99; PULSE 82–96; RESP 18–20; TEMP 97.4–98; O2SAT 94–98
[2017-01-03] MEDS: methylPREDNISolone SOD SUCC 40 MG/1 ML VIAL IV PUSH SCH ×4 (01:13→21:22)
[2017-01-03] MEDS: DOCUSATE SODIUM 100 MG CAP PO SCH ×2 (01:13→13:54)
[2017-01-03] MEDS: ACETAMINOPHEN/HYDROcodone 325 MG/5 MG TAB PO PRN ×5 (01:13→21:23)
[2017-01-03] MEDS: RESP: ALBUTEROL 2.5 MG/IPRATROPIUM 0.5 MG NEB (SCH) NEB ×4 (03:17→15:40)
[2017-01-03 05:22] LABS: HEMATOCRIT 28.4 % (39.0-51.0); MEAN CELL VOLUME 74.6 FL (80.0-100.0); MEAN CORPUSCULAR HEMOGLOBIN 22.8 PG (27.0-34.0); MEAN CORPUSCULAR HGB CONC 30.6 % (32.0-36.0); PLATELET COUNT 353 TH/MM3 (150-450); RED BLOOD COUNT 3.81 MIL/MM3 (4.50-5.90); RED CELL DISTRIBUTION WIDTH 23.6 % (11.6-17.2); WHITE BLOOD COUNT 12.6 TH/MM3 (4.0-11.0)
[2017-01-03 05:25] LABS: REVIEW FLAG FINAL
[2017-01-03 05:33] LABS: APTT (PATIENT) 33.4 SEC (24.3-30.1); INTERNATIONAL NORMALIZED RATIO 2.3 RATIO; PROTHROMBIN TIME - PATIENT 26.6 SEC (9.8-11.6)
[2017-01-03] MEDS: HYDROcodone 5 MG/HOMATROPINE 1.5 MG SYRUP 5 ML CUP PO PRN ×3 (06:38→21:25)
[2017-01-03] MEDS: INSULIN ASPART SUPPLEMENTAL SCALE SQ SCH ×4 (06:39→21:25)
--- NOTE | 2017-01-03 08:26 | HHI.PR ---
Subjective History of Present Illness Patient have SOB cough and sever wheezing Have Pulmonary embolism... INR 2.3 today restarted Elaquis 5 mg PO BID D/W Dr Reuben Cali Blackener.. ID / Cardiology input noted. Abdominal distension checked abdominal X- ray nothing acute have leg swelling on Lasix 40 mg IV Daily. c/o oral thrush on Nystatin 5 ml PO QID. Review of Systems Constitutional Constitutional: Fatigue, Weakness Pulmonary Respiratory: Coughing, Shortness of Breath, Wheezing Musculoskeletal MS Remarks Right Hip Pain. Vitals/Results Intake & Output 01/02/17 01/02/17 01/03/17 15:00 23:00 07:00 Intake Total 480 ml 100 ml Output Total 175 ml 600 ml Balance 305 ml -500 ml Intake Oral 480 ml 100 ml Output Urine Total 175 ml 600 ml # Bowel Movements 1 0 Vital Signs Vital Signs Date Time Temp Pulse Resp B/P Pulse Ox O2 Delivery O2 Flow Rate FiO2 01/03/17 08:08 98 Nasal Cannula 2.00 01/03/17 08:00 97.7 90 18 170/99 94 01/03/17 04:00 98.0 93 20 147/89 97 01/03/17 02:30 18 01/03/17 00:00 97.4 90 18 157/96 97 01/02/17 21:18 98 Nasal Cannula 2.00 01/02/17 20:45 Nasal Cannula 2.00 01/02/17 20:00 98.4 90 20 152/87 97 01/02/17 16:00 97.5 93 20 139/81 96 01/02/17 12:00 97.9 104 20 164/105 97 CBC/BMP: 01/03/17 0503 01/02/17 0535 Lab Results Laboratory Tests Test 01/02/17 01/03/17 11:15 05:03 Prothrombin Time 31.1 SEC 26.6 SEC Prothromb Time International 2.7 RATIO 2.3 RATIO Ratio White Blood Count 12.6 TH/MM3 Red Blood Count 3.81 MIL/MM3 Hemoglobin 8.7 GM/DL Hematocrit 28.4 % Mean Corpuscular Volume 74.6 FL Mean Corpuscular Hemoglobin 22.8 PG Mean Corpuscular Hemoglobin 30.6 % Concent Red Cell Distribution Width 23.6 % Platelet Count 353 TH/MM3 Mean Platelet Volume 6.7 FL Activated Partial 33.4 SEC Thromboplast Time Physical Exam General General Appearance: Well Developed, Well Nourished, Comfortable, Anxious Eyes Eye Exam: Pupils Equal, Pupils Reactive, Sclera White, Extraocular Movement Intact Ears & Nose Ears & Nose Exam: Nasal Mucosa [place] Throat Throat Exam: Oral Mucosa [place] & Moist, Oral Pharynx Normal Neck Neck Exam: Neck Supple, Trachea Midline Pulmonary Resp Exam: Diminished Breath Sounds Resp Remarks Bilateral wheezing. Cardiology CV Exam: Good Perfusion, Tachycardia Gastrointestinal/Abdomen GI Exam: Soft, Non-Tender, Bowel Sounds Present, Distended Musculoskeletal MS Exam: Joints Intact Integumentary Skin Exam: Warm, Dry Extremeties Extremities Exam: No Edema, Pedal Pulses Palpable, Moderate Edema Extremeties Remarks Right hip mild tenderness Neurologic Neuro Exam: Alert, Awake, Oriented, Speech Clear, Moving All Extremities, No Focal Deficits Psychiatric Psych Exam: Appropriate Responses VTE Prophylaxis VTE Prophylaxis Meds: Heparin PUD Prophylasis PUD Prophylaxis: Protonix, Carafate Assessment/Plan Problem List: (1) Pulmonary embolism (2) Sepsis (3) Acute asthma exacerbation (4) Hypertension (5) Hyperlipidemia (6) Anemia (7) Abscess of hip, right Plan: hx of infection, currently on abx (8) S/P total hip arthroplasty Assessment/Plan continue with BIPAP PRN Duonebs neublization IV steroids 60 mg IV q 6 Pulmonary input noted on Hycodan PRN cough hx DVT and PE, was on Eliquis now with recurrent PE, restarted on Eliquis 5 mg PO BID. appreciate cardiology input, High INR 2.3 today drop in HH, will monitor. s/p PRBC Transfusion ..stable. on IV Iron therapy. Checks stools for OB x 3 continue Micafungin, end date 12/31 repeat lactic acid noted 3.0 continue Zithromax ID input noted.. follow CBC sinus tachycardia.. will monitor, on Cardizem Pain management, on [place] and Flexeril PRN noted with elevated blood glucose, on steroids on accuchecks AC/HS with ISS PPI and carafate for GI prophylaxis Hypokalemia resolved. Abdominal distension check abdominal X- ray have leg swelling on Lasix 40 mg IV Daily. Oral thrush start Nystatin 5 ml PO QID. Check CBC with diff CMP and PT/ INR in AM. Condition guarded, multiple admissions, D/W patient. Discussed Condition with: Patient Problem Qualifiers (1) Pulmonary embolism: Qualified Code: I26.99 - Other pulmonary embolism without acute cor pulmonale, unspecified chronicity (2) Sepsis: Qualified Code: A41.9 - Sepsis, due to unspecified organism (3) Acute asthma exacerbation: Qualified Code: J45.901 - Asthma with acute exacerbation, unspecified asthma severity (4) Hypertension: Qualified Code: I10 - Essential hypertension (5) Hyperlipidemia: Qualified Code: E78.5 - Hyperlipidemia, unspecified hyperlipidemia type (6) Anemia: Qualified Code: D64.9 - Anemia, unspecified type (7) S/P total hip arthroplasty: Qualified Code: Z96.641 - Status post total replacement of right hip Myron Woodward MD Jan 03, 2017 08:26
[2017-01-03] MEDS: PANTOPRAZOLE SOD 40 MG DELAYED RELEASE TAB PO SCH (08:34)
[2017-01-03] MEDS: DILTIAZEM-CD 180 MG CAP ER PO SCH (08:34)
[2017-01-03] MEDS: FUROSEMIDE 40 MG/4 ML VIAL IV PUSH SCH (08:34)
[2017-01-03] MEDS: SUCRALFATE 1 GM TAB PO SCH ×3 (08:34→17:13)
[2017-01-03] MEDS: POTASSIUM CHLORIDE 10 MEQ CONTROLLED RELEASE TAB PO SCH (08:34)
[2017-01-03] MEDS: FOLIC ACID 1 MG TAB PO SCH (08:35)
[2017-01-03] MEDS: IRON SUCROSE INJ 200 MG in SODIUM CHLORIDE 0.9% INJ 100 ML IV SCH (08:35)
[2017-01-03] MEDS: NYSTATIN SUSP 500,000 U/5 ML CUP SWISH-SWAL SCH ×4 (08:35→21:22)
[2017-01-03] MEDS: LORazepam 0.5 MG TAB PO SCH ×2 (08:35→21:22)
[2017-01-03] MEDS: SODIUM CHLORIDE 0.9% FLUSH 10 ML FLUSH IVF SCH (08:36)
[2017-01-03] MEDS: BUDESONIDE-FORMOTEROL 160/4.5 MCG INHALER INH SCH ×2 (08:36→21:24)
--- NOTE | 2017-01-03 10:32 | PD.ONC.PN ---
Subjective Subjective Remarks Afebrile overnight. Patient resting comfortably without complaint. Denies bleeding. He noticed some swelling in his legs and has been keeping them elevated. dyspnea is at baseline. Objective Data Date Time Temp Pulse Resp B/P Pulse Ox O2 Delivery O2 Flow Rate FiO2 01/03/17 08:08 98 Nasal Cannula 2.00 01/03/17 08:00 97.7 90 18 170/99 94 01/03/17 04:00 98.0 93 20 147/89 97 01/03/17 02:30 18 01/03/17 00:00 97.4 90 18 157/96 97 01/02/17 21:18 98 Nasal Cannula 2.00 01/02/17 20:45 Nasal Cannula 2.00 01/02/17 20:00 98.4 90 20 152/87 97 01/02/17 16:00 97.5 93 20 139/81 96 01/02/17 12:00 97.9 104 20 164/105 97 01/03/17 01/03/17 01/03/17 07:00 15:00 23:00 Intake Total 100 ml Output Total 600 ml Balance -500 ml Result Diagram: 01/03/17 0503 01/02/17 0535 Laboratory Results Laboratory Tests Test 01/02/17 01/03/17 11:15 05:03 Prothrombin Time 31.1 SEC 26.6 SEC Prothromb Time International 2.7 RATIO 2.3 RATIO Ratio White Blood Count 12.6 TH/MM3 Red Blood Count 3.81 MIL/MM3 Hemoglobin 8.7 GM/DL Hematocrit 28.4 % Mean Corpuscular Volume 74.6 FL Mean Corpuscular Hemoglobin 22.8 PG Mean Corpuscular Hemoglobin 30.6 % Concent Red Cell Distribution Width 23.6 % Platelet Count 353 TH/MM3 Mean Platelet Volume 6.7 FL Activated Partial 33.4 SEC Thromboplast Time Administered Medications Medications (Trade) Dose Ordered Sig/Gabi Route PRN Reason Start Time Stop Time Status Last Admin Dose Admin Docusate Sodium (Colace) 100 mg Q12H PO 12/25/16 14:45 01/03/17 01:13 Sodium Chloride (NS Flush) DAILY IVF 12/26/16 09:00 01/03/17 08:36 Heparin Sodium (Porcine) (Heparin Central Flush) DAILY IV FLUSH 12/26/16 09:00 01/03/17 08:36 Sodium Chloride (NS Flush) UNSCH PRN IVF SEE PROTOCOL 12/26/16 08:15 01/01/17 04:55 Heparin Sodium (Porcine) (Heparin Central Flush) UNSCH PRN IV FLUSH SEE PROTOCOL 12/26/16 08:15 12/30/16 06:10 Atorvastatin Calcium (Lipitor) 20 mg HS PO 12/26/16 21:00 01/02/17 20:42 Budesonide/ Formoterol Fumarate (Symbicort 160-4.5 Inh) 2 puff Q12HR INH 12/26/16 09:00 01/03/17 08:36 Diltiazem HCl (Cardizem Cd) 360 mg DAILY PO 12/26/16 09:00 01/03/17 08:34 Montelukast Sodium (Singulair) 10 mg HS PO 12/26/16 21:00 01/02/17 20:42 Sucralfate (Carafate) 1 gm TID PO 12/26/16 09:00 01/03/17 08:34 Cyclobenzaprine HCl (Flexeril) 10 mg Q8H PRN PO spasms 12/26/16 08:15 12/29/16 11:30 Pantoprazole Sodium (Protonix) 40 mg DAILY PO 12/26/16 09:00 01/03/17 08:34 Lorazepam (Ativan) 0.5 mg BID PO 12/26/16 09:00 01/03/17 08:35 Acetaminophen/ Hydrocodone Bitart ([place] 5-325 Mg) 2 tab Q4H PRN PO PAIN SCALE 5 TO 10 12/26/16 08:30 01/03/17 06:39 Hydrocodone Bit/ Homatropine Methylb (Hycodan Liq) 5 ml Q6H PRN PO COUGH 12/26/16 08:30 01/03/17 06:38 Potassium Chloride (KCl) 60 meq DAILY PO 12/27/16 11:15 01/03/17 08:34 Furosemide (Lasix Inj) 40 mg DAILY IV PUSH 12/30/16 15:30 01/03/17 08:34 Nystatin (Mycostatin Liq) 5 ml QID SWISH-SWAL 12/31/16 13:00 01/03/17 08:35 Folic Acid (Folate) 1 mg DAILY PO 01/02/17 09:00 01/03/17 08:35 Methylprednisolone Sodium Succinate (SoluMEDROL INJ) 40 mg Q6H IV PUSH 01/02/17 20:00 01/03/17 08:34 Objective Remarks GENERAL: Pleasant male, sitting up in chair next to bed in nad. SKIN: Warm and dry. HEAD: Normocephalic. EYES: No injection or drainage. NECK: Supple, trachea midline. CARDIOVASCULAR: Regular rate and rhythm RESPIRATORY: prolonged expiratory phase. scattered wheeze. GASTROINTESTINAL: Abdomen soft, non-tender, nondistended. EXTREMITIES: No cyanosis. NEUROLOGICAL: aox3. normal speech. moving extremities. Assessment/Plan Assessment 51-year-old male with recurrent pulmonary emboli. --was on Eliquis 2.5mg BID outpatient (prophylactic dosing) h/o Reactive airway disease complicated by frequent exacerbations. Multiple intubations pneumothorax. right lower extremity deep venous thrombosis in December of 2015. Left lung pulmonary embolus December of 2015. Right lung pulmonary embolus in December of 2016. 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 Plan 1. Recurrent pulmonary emboli: INR 2.3 today 2. last bag of iron sucrose this AM 3. UPDATE: will start therapeutic dose Eliquis tonight. monitor CBC/INR. 4. fs faxed to [facility] for follow up once discharged in [address] Cali. Attending Statement The exam, history, and the medical decision-making described in the above note were completed with the assistance of the mid-level provider. I reviewed and agree with the findings presented. I attest that I had a [id number] encounter with the patient on the same day, and personally performed and documented my assessment and findings in the medical record Start Eliquis 5mg PO BID--therapeutic dose. Monitor for bleeding/drop in hemoglobin Anti Xa Assay for apixiban/ CoBerenice geller Jan 03, 2017 10:32 Reuben Cali MD Jan 04, 2017 13:25
--- NOTE | 2017-01-03 14:19 | PD.CARD.PN ---
Subjective Subjective Remarks Mild SOB, no CP, recurrent edema Objective Medications Current Medications Medications (Trade) Dose Ordered Sig/Gabi Route Start Time Stop Time Status Last Admin (Zofran Inj) 4 mg Q6H PRN IVP 12/25/16 14:45 (Colace) 100 mg Q12H PO 12/25/16 14:45 01/03/17 13:54 (Narcan Inj) 0.4 mg UNSCH PRN IV 12/25/16 14:45 (NS Flush) DAILY IVF 12/26/16 09:00 01/03/17 08:36 (Heparin Central Flush) DAILY IV FLUSH 12/26/16 09:00 01/03/17 08:36 (NS Flush) UNSCH PRN IVF 12/26/16 08:15 01/01/17 04:55 (Heparin Central Flush) UNSCH PRN IV FLUSH 12/26/16 08:15 12/30/16 06:10 (NS Flush) UNSCH PRN IVF 12/26/16 08:15 (Lipitor) 20 mg HS PO 12/26/16 21:00 01/02/17 20:42 (Symbicort 160-4.5 Inh) 2 puff Q12HR INH 12/26/16 09:00 01/03/17 08:36 (Cardizem Cd) 360 mg DAILY PO 12/26/16 09:00 01/03/17 08:34 (Singulair) 10 mg HS PO 12/26/16 21:00 01/02/17 20:42 (Carafate) 1 gm TID PO 12/26/16 09:00 01/03/17 11:21 (Flexeril) 10 mg Q8H PRN PO 12/26/16 08:15 12/29/16 11:30 (Protonix) 40 mg DAILY PO 12/26/16 09:00 01/03/17 08:34 (D50w (Vial) Inj) 25 ml UNSCH PRN IV PUSH 12/26/16 08:15 (Glucagon Inj) 1 mg UNSCH PRN OTHER 12/26/16 08:15 (Milk Of Magnesia Liq) 30 ml DAILY PRN PO 12/26/16 08:15 (Ativan) 0.5 mg BID PO 12/26/16 09:00 01/03/17 08:35 ([place] 5-325 Mg) 2 tab Q4H PRN PO 12/26/16 08:30 01/03/17 11:22 (Hycodan Liq) 5 ml Q6H PRN PO 12/26/16 08:30 01/03/17 13:54 (KCl) 60 meq DAILY PO 12/27/16 11:15 01/03/17 08:34 (Lasix Inj) 40 mg DAILY IV PUSH 12/30/16 15:30 01/03/17 08:34 (Pill Splitter) 1 ea UNSCH PRN OTHER 12/31/16 08:45 (Mycostatin Liq) 5 ml QID SWISH-SWAL 12/31/16 13:00 01/03/17 11:21 (Miralax) 17 gm DAILY PRN PO 12/31/16 10:15 (Folate) 1 mg DAILY PO 01/02/17 09:00 01/03/17 08:35 (SoluMEDROL INJ) 40 mg Q6H IV PUSH 01/02/17 20:00 01/03/17 13:54 (Coumadin) 3 mg DAILY@16 PO 01/03/17 16:00 Vital Signs / I&O Vital Signs Date Time Temp Pulse Resp B/P Pulse Ox O2 Delivery O2 Flow Rate FiO2 01/03/17 12:00 98.0 96 18 152/97 96 01/03/17 08:08 98 Nasal Cannula 2.00 01/03/17 08:00 97.7 90 18 170/99 94 01/03/17 08:00 Nasal Cannula 2.00 01/03/17 04:00 98.0 93 20 147/89 97 01/03/17 02:30 18 01/03/17 00:00 97.4 90 18 157/96 97 01/02/17 21:18 98 Nasal Cannula 2.00 01/02/17 20:45 Nasal Cannula 2.00 01/02/17 20:00 98.4 90 20 152/87 97 01/02/17 16:00 97.5 93 20 139/81 96 I/O 01/02/17 01/02/17 01/02/17 01/03/17 01/03/17 01/03/17 07:00 15:00 23:00 07:00 15:00 23:00 Intake Total 480 ml 100 ml Output Total 175 ml 600 ml Balance 305 ml -500 ml Intake Oral 480 ml 100 ml Output Urine Total 175 ml 600 ml # Bowel Movements 1 0 Physical Exam GENERAL: In NAD SKIN: Warm and dry. HEAD: Normocephalic. EYES: No scleral icterus. No injection or drainage. NECK: Supple, trachea midline. No JVD or lymphadenopathy. CARDIOVASCULAR: Regular rate and rhythm without murmurs, gallops, or rubs. RESPIRATORY: Bilat wheezes. No accessory muscle use. GASTROINTESTINAL: Abdomen soft, non-tender, nondistended. MUSCULOSKELETAL: No cyanosis, no edema. Laboratory Laboratory Tests Test 01/03/17 05:03 White Blood Count 12.6 TH/MM3 Red Blood Count 3.81 MIL/MM3 Hemoglobin 8.7 GM/DL Hematocrit 28.4 % Mean Corpuscular Volume 74.6 FL Mean Corpuscular Hemoglobin 22.8 PG Mean Corpuscular Hemoglobin 30.6 % Concent Red Cell Distribution Width 23.6 % Platelet Count 353 TH/MM3 Mean Platelet Volume 6.7 FL Prothrombin Time 26.6 SEC Prothromb Time International 2.3 RATIO Ratio Activated Partial 33.4 SEC Thromboplast Time Imaging Last Impressions Abdomen/Pelvis CT 12/31/16 0000 Signed Impressions: Service Date/Time: Saturday, December 31, 2016 21:53 - CONCLUSION: 1. No renal calculi or hydronephrosis. 2. Diverticulosis without diverticulitis. Davion Carranza MD Abdomen X-Ray 12/30/16 0000 Signed Impressions: Service Date/Time: Friday, December 30, 2016 15:57 - CONCLUSION: Nonspecific bowel gas pattern with moderate amount of stool present greatest in the right side of the colon. Jeferson Cervantes MD Lower Extremity Ultrasound 12/27/16 0000 Signed Impressions: Service Date/Time: Tuesday, December 27, 2016 10:06 - CONCLUSION: Normal examination. Glendy Harry MD Hip X-Ray 12/26/16 0000 Signed Impressions: Service Date/Time: December 16:04 - CONCLUSION: Migration of the greater trochanteric screw laterally with separation of the side plate by approximately 7-8 mm. Glendy Harry MD Femur X-Ray 12/26/16 0000 Signed Impressions: Service Date/Time: December 16:04 - CONCLUSION: Migration of the screw laterally at the level of the greater trochanteric component with separation of the plate by 7-8 mm. Glendy Harry MD Chest X-Ray 12/25/16 1238 Signed Impressions: Service Date/Time: Sunday, December 25, 2016 13:27 - CONCLUSION: No focal infiltrates seen. Adriel Thompson MD CT Angiography 12/25/16 0000 Signed Impressions: Service Date/Time: Sunday, December 25, 2016 14:45 - CONCLUSION: Positive for pulmonary embolism in the right lower lobe with a large filling defect extending into at least 3 segmental arteries. No evidence of pleural effusion. Adriel Thompson MD Assessment and Plan Problem List: (1) Pulmonary embolism (2) S/P total hip arthroplasty (3) Acute asthma exacerbation (4) Acute hypercapnic respiratory failure (5) Hypertension (6) Hyperlipidemia Assessment and Plan Increased LE edema, increase diuresis. Echo w nl RV fx and size, nl LV fx. Continue anticoagulation including Coumadin. Continue tx for asthma exacerbation incl steroids as per Dr. Hernandez. Sinus tachycardia was likely related to PE and bronchodilators. Continue monitoring. Increase activity as tolerated. Problem Qualifiers (1) Pulmonary embolism: Qualified Code: I26.99 - Other pulmonary embolism without acute cor pulmonale, unspecified chronicity (2) Acute asthma exacerbation: Qualified Code: J45.901 - Asthma with acute exacerbation, unspecified asthma severity (3) Hypertension: Qualified Code: I10 - Essential hypertension (4) Hyperlipidemia: Qualified Code: E78.5 - Hyperlipidemia, unspecified hyperlipidemia type Adam Moody MD Jan 03, 2017 14:19
[2017-01-03] MEDS ORDERED: WARFARIN SOD 3 MG TAB PO SCH (16:00)
--- NOTE | 2017-01-03 18:28 | HHI.PR ---
Subjective Remarks Had Iron infusion. O2 sat 96, on 3 L. C/O wheezing but better. Objective Vital Signs Date Time Temp Pulse Resp B/P Pulse Ox O2 Delivery O2 Flow Rate FiO2 01/03/17 16:00 97.6 84 18 146/97 95 01/03/17 15:40 96 Nasal Cannula 2.00 01/03/17 12:00 98.0 96 18 152/97 96 01/03/17 08:08 98 Nasal Cannula 2.00 01/03/17 08:00 97.7 90 18 170/99 94 01/03/17 08:00 Nasal Cannula 2.00 01/03/17 04:00 98.0 93 20 147/89 97 01/03/17 02:30 18 01/03/17 00:00 97.4 90 18 157/96 97 01/02/17 21:18 98 Nasal Cannula 2.00 01/02/17 20:45 Nasal Cannula 2.00 01/02/17 20:00 98.4 90 20 152/87 97 I/O 01/02/17 01/02/17 01/02/17 01/03/17 01/03/17 01/03/17 07:00 15:00 23:00 07:00 15:00 23:00 Intake Total 480 ml 100 ml 960 ml Output Total 175 ml 600 ml 800 ml Balance 305 ml -500 ml 160 ml Intake Oral 480 ml 100 ml 960 ml Output Urine Total 175 ml 600 ml 800 ml # Bowel Movements 1 0 2 Result Diagram: 01/03/17 0503 01/02/17 0535 Objective Remarks GENERAL: The patient is alert. HEENT: Exam unremarkable. Eyes without icterus. NECK: Without adenopathy or thyroid enlargement. CHEST: Scattered rhonchi and wheeze bilaterally. CARDIAC: PMI distant. S1-S2 audible. No murmur or rub. ABDOMEN: Lax, bowel sounds audible. EXTREMITIES: No clubbing, cyanosis, has 2 + edema. Pulses intact. Assessment and Plan Assessment and Plan IMPRESSION 1. Pulmonary embolism. 2. Bronchial asthma. 3. Status post hip replacement. 4. Anemia , Microcytic. Plan : 1. Continue O2 at 2 L. 2. Taper solumedrol to 40 mg Q8H. 3. Nebs qid , duoneb. 4. Rpt CBC.BMP 5. Start on Eliquis per Dr Cali. 6. IS q2h at bedside 7. Continue Lasix 40 mg IV daily. Ashok Valdes MD Jan 03, 2017 18:28
[2017-01-03] MEDS: RESP: ALBUTEROL 2.5 MG/IPRATROPIUM 0.5 MG NEB (PRN) NEB (19:28)
[2017-01-03] MEDS: ATORVASTATIN 20 MG TAB PO SCH (21:22)
[2017-01-03] MEDS: MONTELUKAST SODIUM 10 MG TAB PO SCH (21:24)
[2017-01-03] MEDS: APIXABAN 5 MG TABLET PO SCH (21:24)
[2017-01-04] VITALS (9 sets, daily range): BP systolic 150–161; BP diastolic 91–103; PULSE 83–103; RESP 16–18; TEMP 97.4–97.7; O2SAT 95–98
[2017-01-04] MEDS: DOCUSATE SODIUM 100 MG CAP PO SCH ×2 (02:05→12:05)
[2017-01-04] MEDS: HYDROcodone 5 MG/HOMATROPINE 1.5 MG SYRUP 5 ML CUP PO PRN ×3 (05:18→18:26)
[2017-01-04] MEDS: ACETAMINOPHEN/HYDROcodone 325 MG/5 MG TAB PO PRN ×4 (05:19→20:49)
[2017-01-04] MEDS: methylPREDNISolone SOD SUCC 40 MG/1 ML VIAL IV PUSH SCH (05:20)
[2017-01-04 05:46] LABS: APTT (PATIENT) 28.7 SEC (24.3-30.1)
[2017-01-04] MEDS: INSULIN ASPART SUPPLEMENTAL SCALE SQ SCH ×4 (06:32→20:52)
--- NOTE | 2017-01-04 06:46 | HHI.PR ---
Subjective History of Present Illness Patient have SOB cough and sever wheezing Have Pulmonary embolism... on Elaquis 5 mg PO BID . Abdominal distension checked abdominal X- ray nothing acute have leg swelling on Lasix 40 mg IV Daily. c/o oral thrush on Nystatin 5 ml PO QID. DC Solumedrol start prednisone 20 mg PO BID. Review of Systems Constitutional Constitutional: Fatigue, Weakness Pulmonary Respiratory: Coughing, Shortness of Breath, Wheezing Musculoskeletal MS Remarks Right Hip Pain. Vitals/Results Intake & Output 01/03/17 01/03/17 01/04/17 15:00 23:00 07:00 Intake Total 960 ml 600 ml 120 ml Output Total 800 ml 400 ml 1900 ml Balance 160 ml 200 ml -1780 ml Intake Oral 960 ml 600 ml 120 ml Output Urine Total 800 ml 400 ml 1900 ml # Bowel Movements 2 2 0 Vital Signs Vital Signs Date Time Temp Pulse Resp B/P Pulse Ox O2 Delivery O2 Flow Rate FiO2 01/04/17 06:31 18 01/04/17 04:00 97.4 97 16 159/98 95 01/04/17 01:56 83 01/04/17 00:00 97.4 86 16 150/91 98 01/03/17 21:40 Nasal Cannula 2.00 01/03/17 20:00 97.6 91 18 146/91 94 01/03/17 16:00 97.6 84 18 146/97 95 01/03/17 15:40 96 Nasal Cannula 2.00 01/03/17 12:00 98.0 96 18 152/97 96 01/03/17 08:08 98 Nasal Cannula 2.00 01/03/17 08:00 97.7 90 18 170/99 94 01/03/17 08:00 Nasal Cannula 2.00 01/03/17 08:00 82 CBC/BMP: 01/03/17 0503 01/02/17 0535 Lab Results Laboratory Tests Test 01/04/17 05:10 Activated Partial 28.7 SEC Thromboplast Time Physical Exam General General Appearance: Well Developed, Well Nourished, Comfortable, Anxious Eyes Eye Exam: Pupils Equal, Pupils Reactive, Sclera White, Extraocular Movement Intact Ears & Nose Ears & Nose Exam: Nasal Mucosa [place] Throat Throat Exam: Oral Mucosa [place] & Moist, Oral Pharynx Normal Neck Neck Exam: Neck Supple, Trachea Midline Pulmonary Resp Exam: Diminished Breath Sounds Resp Remarks Bilateral wheezing. Cardiology CV Exam: Good Perfusion, Tachycardia Gastrointestinal/Abdomen GI Exam: Soft, Non-Tender, Bowel Sounds Present, Distended Musculoskeletal MS Exam: Joints Intact Integumentary Skin Exam: Warm, Dry Extremeties Extremities Exam: No Edema, Pedal Pulses Palpable, Moderate Edema Extremeties Remarks Right hip mild tenderness Neurologic Neuro Exam: Alert, Awake, Oriented, Speech Clear, Moving All Extremities, No Focal Deficits Psychiatric Psych Exam: Appropriate Responses VTE Prophylaxis VTE Prophylaxis Meds: Heparin PUD Prophylasis PUD Prophylaxis: Protonix, Carafate Assessment/Plan Problem List: (1) Pulmonary embolism (2) Sepsis (3) Acute asthma exacerbation (4) Hypertension (5) Hyperlipidemia (6) Anemia (7) Abscess of hip, right Plan: hx of infection, currently on abx (8) S/P total hip arthroplasty Assessment/Plan continue with BIPAP PRN Duonebs neublization DC Solumedrol start prednisone 20 mg PO BID. Pulmonary input noted on Hycodan PRN cough hx DVT and PE, was on Eliquis now with recurrent PE, restarted on Eliquis 5 mg PO BID. appreciate cardiology input, drop in HH, will monitor. s/p PRBC Transfusion ..stable. on IV Iron therapy. Checks stools for OB x 3 continue Micafungin, end date 12/31 repeat lactic acid noted 3.0 continue Zithromax ID input noted.. follow CBC sinus tachycardia.. will monitor, on Cardizem Pain management, on [place] and Flexeril PRN noted with elevated blood glucose, on steroids on accuchecks AC/HS with ISS PPI and carafate for GI prophylaxis Hypokalemia resolved. Abdominal distension check abdominal X- ray have leg swelling on Lasix 40 mg IV Daily. Oral thrush on Nystatin 5 ml PO QID. Check CBC with diff CMP and PT/ INR in AM. Condition guarded, multiple admissions, D/W patient. Discussed Condition with: Patient Problem Qualifiers (1) Pulmonary embolism: Qualified Code: I26.99 - Other pulmonary embolism without acute cor pulmonale, unspecified chronicity (2) Sepsis: Qualified Code: A41.9 - Sepsis, due to unspecified organism (3) Acute asthma exacerbation: Qualified Code: J45.901 - Asthma with acute exacerbation, unspecified asthma severity (4) Hypertension: Qualified Code: I10 - Essential hypertension (5) Hyperlipidemia: Qualified Code: E78.5 - Hyperlipidemia, unspecified hyperlipidemia type (6) Anemia: Qualified Code: D64.9 - Anemia, unspecified type (7) S/P total hip arthroplasty: Qualified Code: Z96.641 - Status post total replacement of right hip Myron Woodward MD Jan 04, 2017 06:46
[2017-01-04] MEDS: NYSTATIN SUSP 500,000 U/5 ML CUP SWISH-SWAL SCH ×4 (08:23→20:51)
[2017-01-04] MEDS: FOLIC ACID 1 MG TAB PO SCH (08:23)
[2017-01-04] MEDS: PANTOPRAZOLE SOD 40 MG DELAYED RELEASE TAB PO SCH (08:23)
[2017-01-04] MEDS: APIXABAN 5 MG TABLET PO SCH ×2 (08:23→20:50)
[2017-01-04] MEDS: DILTIAZEM-CD 180 MG CAP ER PO SCH (08:23)
[2017-01-04] MEDS: POTASSIUM CHLORIDE 10 MEQ CONTROLLED RELEASE TAB PO SCH (08:23)
[2017-01-04] MEDS: LORazepam 0.5 MG TAB PO SCH ×2 (08:24→20:49)
[2017-01-04] MEDS: BUDESONIDE-FORMOTEROL 160/4.5 MCG INHALER INH SCH ×2 (08:24→20:48)
[2017-01-04] MEDS: SUCRALFATE 1 GM TAB PO SCH ×3 (08:24→16:04)
[2017-01-04] MEDS: SODIUM CHLORIDE 0.9% FLUSH 10 ML FLUSH IVF SCH (08:24)
[2017-01-04] MEDS: FUROSEMIDE 40 MG/4 ML VIAL IV PUSH SCH (08:24)
[2017-01-04] MEDS: RESP: ALBUTEROL 2.5 MG/IPRATROPIUM 0.5 MG NEB (PRN) NEB ×3 (11:55→23:37)
[2017-01-04 13:56] LABS: MEAN CORPUSCULAR HGB CONC 29.6 % (32.0-36.0)
--- NOTE | 2017-01-04 14:36 | HHI.PR ---
Subjective Remarks Better today . No cough . O2 sat 98, on 2 L. C/O wheezing but better. Objective Vital Signs Date Time Temp Pulse Resp B/P Pulse Ox O2 Delivery O2 Flow Rate FiO2 01/04/17 12:00 97.4 99 16 161/102 98 01/04/17 08:00 97.7 86 16 160/103 95 01/04/17 08:00 Nasal Cannula 2.00 01/04/17 06:31 18 01/04/17 04:00 97.4 97 16 159/98 95 01/04/17 01:56 83 01/04/17 00:00 97.4 86 16 150/91 98 01/03/17 21:40 Nasal Cannula 2.00 01/03/17 20:00 97.6 91 18 146/91 94 01/03/17 16:00 97.6 84 18 146/97 95 01/03/17 15:40 96 Nasal Cannula 2.00 I/O 01/03/17 01/03/17 01/03/17 01/04/17 01/04/17 01/04/17 07:00 15:00 23:00 07:00 15:00 23:00 Intake Total 100 ml 960 ml 600 ml 120 ml Output Total 600 ml 800 ml 400 ml 1900 ml Balance -500 ml 160 ml 200 ml -1780 ml Intake Oral 100 ml 960 ml 600 ml 120 ml Output Urine Total 600 ml 800 ml 400 ml 1900 ml # Bowel Movements 0 2 2 0 Result Diagram: 01/03/17 0503 01/02/17 0535 Objective Remarks GENERAL: The patient is alert. HEENT: Exam unremarkable. Eyes without icterus.Throat clear. NECK: Without adenopathy or thyroid enlargement. CHEST: Scattered wheeze bilaterally. CARDIAC: PMI distant. S1-S2 audible. No murmur or rub. ABDOMEN: Lax, bowel sounds audible. EXTREMITIES: No clubbing, cyanosis, has 1 + edema. Pulses intact. Assessment and Plan Assessment and Plan IMPRESSION 1. Pulmonary embolism. 2. Bronchial asthma. 3. Status post hip replacement. 4. Anemia , Microcytic. Plan : 1. Continue O2 at 2 L. 2. D/C solumedrol and add prednisone 20 mg bid 3. Nebs qid , duoneb. 4. Rpt CBC.BMP 5. Start on Eliquis per Dr Cali. 6. IS q2h at bedside 7. Continue Lasix 40 mg IV daily. Ashok Valdes MD Jan 04, 2017 14:35
--- NOTE | 2017-01-04 17:33 | PD.CARD.PN ---
Subjective Subjective Remarks No CP, less SOB, ambulating Objective Medications Current Medications Medications (Trade) Dose Ordered Sig/Gabi Route Start Time Stop Time Status Last Admin (Zofran Inj) 4 mg Q6H PRN IVP 12/25/16 14:45 (Colace) 100 mg Q12H PO 12/25/16 14:45 01/04/17 12:05 (Narcan Inj) 0.4 mg UNSCH PRN IV 12/25/16 14:45 (NS Flush) DAILY IVF 12/26/16 09:00 01/04/17 08:24 (Heparin Central Flush) DAILY IV FLUSH 12/26/16 09:00 01/04/17 08:24 (NS Flush) UNSCH PRN IVF 12/26/16 08:15 01/01/17 04:55 (Heparin Central Flush) UNSCH PRN IV FLUSH 12/26/16 08:15 12/30/16 06:10 (NS Flush) UNSCH PRN IVF 12/26/16 08:15 (Lipitor) 20 mg HS PO 12/26/16 21:00 01/03/17 21:22 (Symbicort 160-4.5 Inh) 2 puff Q12HR INH 12/26/16 09:00 01/04/17 08:24 (Cardizem Cd) 360 mg DAILY PO 12/26/16 09:00 01/04/17 08:23 (Singulair) 10 mg HS PO 12/26/16 21:00 01/03/17 21:24 (Carafate) 1 gm TID PO 12/26/16 09:00 01/04/17 16:04 (Flexeril) 10 mg Q8H PRN PO 12/26/16 08:15 12/29/16 11:30 (Protonix) 40 mg DAILY PO 12/26/16 09:00 01/04/17 08:23 (D50w (Vial) Inj) 25 ml UNSCH PRN IV PUSH 12/26/16 08:15 (Glucagon Inj) 1 mg UNSCH PRN OTHER 12/26/16 08:15 (Milk Of Magnesia Liq) 30 ml DAILY PRN PO 12/26/16 08:15 (Ativan) 0.5 mg BID PO 12/26/16 09:00 01/04/17 08:24 ([place] 5-325 Mg) 2 tab Q4H PRN PO 12/26/16 08:30 01/04/17 16:04 (Hycodan Liq) 5 ml Q6H PRN PO 12/26/16 08:30 01/04/17 12:05 (KCl) 60 meq DAILY PO 12/27/16 11:15 01/04/17 08:23 (Lasix Inj) 40 mg DAILY IV PUSH 12/30/16 15:30 01/04/17 08:24 (Pill Splitter) 1 ea UNSCH PRN OTHER 12/31/16 08:45 (Mycostatin Liq) 5 ml QID SWISH-SWAL 12/31/16 13:00 01/04/17 16:04 (Miralax) 17 gm DAILY PRN PO 12/31/16 10:15 (Folate) 1 mg DAILY PO 01/02/17 09:00 01/04/17 08:23 (Eliquis) 5 mg BID PO 01/03/17 21:00 01/04/17 08:23 (Deltasone) 20 mg BID PO 01/04/17 21:00 Vital Signs / I&O Vital Signs Date Time Temp Pulse Resp B/P Pulse Ox O2 Delivery O2 Flow Rate FiO2 01/04/17 16:00 97.5 87 16 160/96 97 01/04/17 12:00 97.4 99 16 161/102 98 01/04/17 08:00 97.7 86 16 160/103 95 01/04/17 08:00 93 01/04/17 08:00 Nasal Cannula 2.00 01/04/17 06:31 18 01/04/17 04:00 97.4 97 16 159/98 95 01/04/17 01:56 83 01/04/17 00:00 97.4 86 16 150/91 98 01/03/17 21:40 Nasal Cannula 2.00 01/03/17 20:00 97.6 91 18 146/91 94 I/O 01/03/17 01/03/17 01/03/17 01/04/17 01/04/17 01/04/17 07:00 15:00 23:00 07:00 15:00 23:00 Intake Total 100 ml 960 ml 600 ml 120 ml 840 ml Output Total 600 ml 800 ml 400 ml 1900 ml 950 ml Balance -500 ml 160 ml 200 ml -1780 ml -110 ml Intake Oral 100 ml 960 ml 600 ml 120 ml 840 ml Output Urine Total 600 ml 800 ml 400 ml 1900 ml 950 ml # Voids 2 # Bowel Movements 0 2 2 0 3 Physical Exam GENERAL: In NAD SKIN: Warm and dry. HEAD: Normocephalic. EYES: No scleral icterus. No injection or drainage. NECK: Supple, trachea midline. No JVD or lymphadenopathy. CARDIOVASCULAR: Regular rate and rhythm without murmurs, gallops, or rubs. RESPIRATORY: Bilat wheezes. No accessory muscle use. GASTROINTESTINAL: Abdomen soft, non-tender, nondistended. MUSCULOSKELETAL: No cyanosis, mild edema. Laboratory Laboratory Tests Test 01/04/17 05:10 Activated Partial 28.7 SEC Thromboplast Time Imaging Last Impressions Abdomen/Pelvis CT 12/31/16 0000 Signed Impressions: Service Date/Time: Saturday, December 31, 2016 21:53 - CONCLUSION: 1. No renal calculi or hydronephrosis. 2. Diverticulosis without diverticulitis. Davion Carranza MD Abdomen X-Ray 12/30/16 0000 Signed Impressions: Service Date/Time: Friday, December 30, 2016 15:57 - CONCLUSION: Nonspecific bowel gas pattern with moderate amount of stool present greatest in the right side of the colon. Jeferson Cervantes MD Lower Extremity Ultrasound 12/27/16 0000 Signed Impressions: Service Date/Time: Tuesday, December 27, 2016 10:06 - CONCLUSION: Normal examination. Glendy Harry MD Hip X-Ray 12/26/16 0000 Signed Impressions: Service Date/Time: December 16:04 - CONCLUSION: Migration of the greater trochanteric screw laterally with separation of the side plate by approximately 7-8 mm. Glendy Harry MD Femur X-Ray 12/26/16 0000 Signed Impressions: Service Date/Time: December 16:04 - CONCLUSION: Migration of the screw laterally at the level of the greater trochanteric component with separation of the plate by 7-8 mm. Glendy Harry MD Chest X-Ray 12/25/16 1238 Signed Impressions: Service Date/Time: Sunday, December 25, 2016 13:27 - CONCLUSION: No focal infiltrates seen. Adriel Thompson MD CT Angiography 12/25/16 0000 Signed Impressions: Service Date/Time: Sunday, December 25, 2016 14:45 - CONCLUSION: Positive for pulmonary embolism in the right lower lobe with a large filling defect extending into at least 3 segmental arteries. No evidence of pleural effusion. Adriel Thompson MD Assessment and Plan Problem List: (1) Pulmonary embolism (2) S/P total hip arthroplasty (3) Acute asthma exacerbation (4) Acute hypercapnic respiratory failure (5) Hypertension (6) Hyperlipidemia Assessment and Plan LE edema improving, continue diuresis. Echo w nl RV fx and size, nl LV fx. Continue anticoagulation with Eliquis. Continue tx for asthma exacerbation incl steroids as per Dr. Hernandez. Sinus tachycardia was likely related to PE and bronchodilators. Continue monitoring. Increase activity as tolerated. D/w pt and . Problem Qualifiers (1) Pulmonary embolism: Qualified Code: I26.99 - Other pulmonary embolism without acute cor pulmonale, unspecified chronicity (2) Acute asthma exacerbation: Qualified Code: J45.901 - Asthma with acute exacerbation, unspecified asthma severity (3) Hypertension: Qualified Code: I10 - Essential hypertension (4) Hyperlipidemia: Qualified Code: E78.5 - Hyperlipidemia, unspecified hyperlipidemia type Adam Moody MD Jan 04, 2017 17:33
[2017-01-04 18:34] LABS: AUTOMATED NEUTROPHIL # 16.6 TH/MM3 (1.8-7.7); BASOPHIL % 0.2 % (0.0-2.0); HEMATOCRIT 32.5 % (39.0-51.0); LYMPH % 3.4 % (9.0-44.0); LYMPHOCYTE # 0.6 TH/MM3 (1.0-4.8); MEAN CELL VOLUME 76.7 FL (80.0-100.0); MEAN CORPUSCULAR HEMOGLOBIN 22.7 PG (27.0-34.0); MONO % 6.2 % (0.0-8.0); NEUT % 90.2 % (16.0-70.0); PLATELET COUNT 319 TH/MM3 (150-450); RED BLOOD COUNT 4.25 MIL/MM3 (4.50-5.90); RED CELL DISTRIBUTION WIDTH 24.2 % (11.6-17.2); WHITE BLOOD COUNT 18.4 TH/MM3 (4.0-11.0)
[2017-01-04 18:35] LABS: HEMO FLAGS AUTO DIFF
[2017-01-04 18:46] LABS: INTERNATIONAL NORMALIZED RATIO 1.3 RATIO; PROTHROMBIN TIME - PATIENT 14.7 SEC (9.8-11.6)
[2017-01-04 19:12] LABS: BANDS 5 % (0-6); CORRECTED NUCLEATED RBC 2 /100 WBC (0-0); METAMYELOCYTES 3 % (0-1); MYELOCYTES 3 % (0-0); NEUTROPHIL # MANUAL DIFF 16.7 TH/MM3 (1.8-7.7); POLYS (SEG NEUTROPHILS) 80 % (16-70); WBC DIFF SAMPLE 100
[2017-01-04 19:13] LABS: OVALOCYTES 1+ (NORMAL); PLATELET ESTIMATE SMEAR NORMAL (NORMAL); PLATELET MORPHOLOGY NORMAL (NORMAL); SCAN/DIFF FINAL DIFF MANUAL
[2017-01-04] MEDS: ATORVASTATIN 20 MG TAB PO SCH (20:50)
[2017-01-04] MEDS: predniSONE 20 MG TAB PO SCH (20:50)
[2017-01-04] MEDS: MONTELUKAST SODIUM 10 MG TAB PO SCH (20:50)
[2017-01-04 21:06] LABS: MEAN CORPUSCULAR HGB CONC 29.8 % (32.0-36.0)
[2017-01-05] VITALS (9 sets, daily range): BP systolic 133–165; BP diastolic 90–108; PULSE 86–107; RESP 18–20; TEMP 97.3–98.2; O2SAT 93–98
[2017-01-05] MEDS: DOCUSATE SODIUM 100 MG CAP PO SCH ×2 (01:21→15:05)
[2017-01-05] MEDS: ACETAMINOPHEN/HYDROcodone 325 MG/5 MG TAB PO PRN ×5 (01:22→21:33)
[2017-01-05] MEDS: RESP: ALBUTEROL 2.5 MG/IPRATROPIUM 0.5 MG NEB (PRN) NEB ×5 (04:28→20:32)
[2017-01-05] MEDS: INSULIN ASPART SUPPLEMENTAL SCALE SQ SCH ×4 (05:54→21:34)
--- NOTE | 2017-01-05 07:24 | HHI.PR ---
Subjective History of Present Illness Patient have SOB cough and sever wheezing Have Pulmonary embolism... on Elaquis 5 mg PO BID . Abdominal distension checked abdominal X- ray nothing acute have leg swelling on Lasix 40 mg IV Daily. c/o oral thrush on Nystatin 5 ml PO QID.on prednisone 20 mg PO BID. Lower extremity swelling check venous doppler of lower extremity for DVT. Review of Systems Constitutional Constitutional: Fatigue, Weakness Pulmonary Respiratory: Coughing, Shortness of Breath, Wheezing Musculoskeletal MS Remarks Right Hip Pain. Vitals/Results Intake & Output 01/04/17 01/04/17 01/05/17 15:00 23:00 07:00 Intake Total 840 ml 480 ml 240 ml Output Total 950 ml 800 ml 1500 ml Balance -110 ml -320 ml -1260 ml Intake Oral 840 ml 480 ml 240 ml Output Urine Total 950 ml 800 ml 1500 ml # Voids 2 # Bowel Movements 3 0 0 Vital Signs Vital Signs Date Time Temp Pulse Resp B/P Pulse Ox O2 Delivery O2 Flow Rate FiO2 01/05/17 04:28 97 Nasal Cannula 2.00 01/05/17 04:00 97.3 92 18 156/94 96 01/05/17 00:00 97.5 102 18 150/90 96 01/04/17 23:37 98 Nasal Cannula 2.00 01/04/17 20:29 98 Nasal Cannula 2.00 01/04/17 20:00 Nasal Cannula 2.00 01/04/17 20:00 89 01/04/17 20:00 97.6 103 18 159/100 98 01/04/17 16:00 97.5 87 16 160/96 97 01/04/17 12:00 97.4 99 16 161/102 98 01/04/17 08:00 97.7 86 16 160/103 95 01/04/17 08:00 93 01/04/17 08:00 Nasal Cannula 2.00 CBC/BMP: 01/04/17 1806 01/02/17 0535 Lab Results Laboratory Tests Test 01/04/17 18:06 White Blood Count 18.4 TH/MM3 Red Blood Count 4.25 MIL/MM3 Hemoglobin 9.6 GM/DL Hematocrit 32.5 % Mean Corpuscular Volume 76.7 FL Mean Corpuscular Hemoglobin 22.7 PG Mean Corpuscular Hemoglobin 29.6 % Concent Red Cell Distribution Width 24.2 % Platelet Count 319 TH/MM3 Mean Platelet Volume 7.1 FL Neutrophils (%) (Auto) 90.2 % Lymphocytes (%) (Auto) 3.4 % Monocytes (%) (Auto) 6.2 % Eosinophils (%) (Auto) 0.0 % Basophils (%) (Auto) 0.2 % Neutrophils # (Auto) 16.6 TH/MM3 Lymphocytes # (Auto) 0.6 TH/MM3 Monocytes # (Auto) 1.1 TH/MM3 Eosinophils # (Auto) 0.0 TH/MM3 Basophils # (Auto) 0.0 TH/MM3 CBC Comment AUTO DIFF Differential Total Cells 100 Counted Neutrophils % (Manual) 80 % Band Neutrophils % 5 % Lymphocytes % 3 % Monocytes % 6 % Neutrophils # (Manual) 16.7 TH/MM3 Metamyelocytes 3 % Myelocytes 3 % Nucleated Red Blood Cells 2 /100 WBC Differential Comment FINAL DIFF MANUAL Platelet Estimate NORMAL Platelet Morphology Comment NORMAL Ovalocytes 1+ Prothrombin Time 14.7 SEC Prothromb Time International 1.3 RATIO Ratio Physical Exam General General Appearance: Well Developed, Well Nourished, Comfortable, Anxious Eyes Eye Exam: Pupils Equal, Pupils Reactive, Sclera White, Extraocular Movement Intact Ears & Nose Ears & Nose Exam: Nasal Mucosa [place] Throat Throat Exam: Oral Mucosa [place] & Moist, Oral Pharynx Normal Neck Neck Exam: Neck Supple, Trachea Midline Pulmonary Resp Exam: Diminished Breath Sounds Resp Remarks Bilateral wheezing. Cardiology CV Exam: Good Perfusion, Tachycardia Gastrointestinal/Abdomen GI Exam: Soft, Non-Tender, Bowel Sounds Present, Distended Musculoskeletal MS Exam: Joints Intact Integumentary Skin Exam: Warm, Dry Extremeties Extremities Exam: Pedal Pulses Palpable, Moderate Edema, Pitting Edema Extremeties Remarks Right hip mild tenderness Neurologic Neuro Exam: Alert, Awake, Oriented, Speech Clear, Moving All Extremities, No Focal Deficits Psychiatric Psych Exam: Appropriate Responses VTE Prophylaxis VTE Prophylaxis Meds: Heparin PUD Prophylasis PUD Prophylaxis: Protonix, Carafate Assessment/Plan Problem List: (1) Pulmonary embolism (2) Sepsis (3) Acute asthma exacerbation (4) Hypertension (5) Hyperlipidemia (6) Anemia (7) Abscess of hip, right Plan: hx of infection, currently on abx (8) S/P total hip arthroplasty Assessment/Plan continue with BIPAP PRN Duonebs neublization On prednisone 20 mg PO BID. Pulmonary input noted on Hycodan PRN cough hx DVT and PE, was on Eliquis now with recurrent PE, on Eliquis 5 mg PO BID. appreciate cardiology and hematology input, drop in H &H, will monitor. s/p PRBC Transfusion ..stable. was on IV Iron therapy. Checks stools for OB x 2 Negative. ID input noted.. follow CBC sinus tachycardia.. will monitor, on Cardizem Pain management, on [place] and Flexeril PRN noted with elevated blood glucose, on steroids on accuchecks AC/HS with ISS PPI and carafate for GI prophylaxis Hypokalemia resolved. Abdominal distension check abdominal X- ray have leg swelling on Lasix 40 mg IV Daily. Oral thrush on Nystatin 5 ml PO QID. Lower extremity swelling check venous doppler of lower extremity for DVT. Check CBC with diff CMP and PT/ INR in AM. Condition guarded, multiple admissions, D/W patient. Problem Qualifiers (1) Pulmonary embolism: Qualified Code: I26.99 - Other pulmonary embolism without acute cor pulmonale, unspecified chronicity (2) Sepsis: Qualified Code: A41.9 - Sepsis, due to unspecified organism (3) Acute asthma exacerbation: Qualified Code: J45.901 - Asthma with acute exacerbation, unspecified asthma severity (4) Hypertension: Qualified Code: I10 - Essential hypertension (5) Hyperlipidemia: Qualified Code: E78.5 - Hyperlipidemia, unspecified hyperlipidemia type (6) Anemia: Qualified Code: D64.9 - Anemia, unspecified type (7) S/P total hip arthroplasty: Qualified Code: Z96.641 - Status post total replacement of right hip Myron Woodward MD Jan 05, 2017 07:24 Myron Woodward MD Jan 05, 2017 07:24
[2017-01-05 07:49] LABS: AUTOMATED NEUTROPHIL # 15.2 TH/MM3 (1.8-7.7); BASOPHIL % 0.1 % (0.0-2.0); EOSINOPHIL % 0.1 % (0.0-4.0); HEMATOCRIT 32.9 % (39.0-51.0); LYMPHOCYTE # 0.8 TH/MM3 (1.0-4.8); MEAN CELL VOLUME 76.7 FL (80.0-100.0); MEAN CORPUSCULAR HEMOGLOBIN 22.8 PG (27.0-34.0); MONO % 5.5 % (0.0-8.0); NEUT % 89.3 % (16.0-70.0); PLATELET COUNT 297 TH/MM3 (150-450); RED BLOOD COUNT 4.29 MIL/MM3 (4.50-5.90); RED CELL DISTRIBUTION WIDTH 24.4 % (11.6-17.2)
[2017-01-05] MEDS: predniSONE 20 MG TAB PO SCH ×2 (07:50→21:32)
[2017-01-05] MEDS: SUCRALFATE 1 GM TAB PO SCH ×3 (07:50→15:22)
[2017-01-05] MEDS: PANTOPRAZOLE SOD 40 MG DELAYED RELEASE TAB PO SCH (07:50)
[2017-01-05] MEDS: DILTIAZEM-CD 180 MG CAP ER PO SCH (07:50)
[2017-01-05] MEDS: NYSTATIN SUSP 500,000 U/5 ML CUP SWISH-SWAL SCH ×4 (07:50→21:33)
[2017-01-05] MEDS: APIXABAN 5 MG TABLET PO SCH ×2 (07:51→21:33)
[2017-01-05] MEDS: FOLIC ACID 1 MG TAB PO SCH (07:51)
[2017-01-05] MEDS: POTASSIUM CHLORIDE 10 MEQ CONTROLLED RELEASE TAB PO SCH (07:51)
[2017-01-05] MEDS: FUROSEMIDE 40 MG/4 ML VIAL IV PUSH SCH (07:51)
[2017-01-05] MEDS: LORazepam 0.5 MG TAB PO SCH ×2 (07:51→21:33)
[2017-01-05] MEDS: HYDROcodone 5 MG/HOMATROPINE 1.5 MG SYRUP 5 ML CUP PO PRN (07:53)
[2017-01-05 07:56] LABS: HEMO FLAGS AUTO DIFF
[2017-01-05 07:58] LABS: APTT (PATIENT) 25.4 SEC (24.3-30.1)
[2017-01-05] MEDS: BUDESONIDE-FORMOTEROL 160/4.5 MCG INHALER INH SCH ×2 (07:58→21:30)
[2017-01-05] MEDS: SODIUM CHLORIDE 0.9% FLUSH 10 ML FLUSH IVF SCH (08:01)
[2017-01-05 08:18] LABS: ALKALINE PHOSPHATASE 176 U/L (45-117); ALT (GPT) 80 U/L (12-78); ANION GAP 7 MEQ/L (5-15); AST (GOT) 34 U/L (15-37); BICARBONATE 31.8 MEQ/L (21.0-32.0); BLOOD UREA NITROGEN 14 MG/DL (7-18); CHLORIDE 96 MEQ/L (98-107); GLOMERULAR FILTRATION RATE 106 ML/MIN (>89); SODIUM (NA) 135 MEQ/L (136-145); TOTAL BILIRUBIN ADULT 0.4 MG/DL (0.2-1.0)
--- NOTE | 2017-01-05 09:11 | RADRPT ---
EXAM DATE/TIME: 01/05/2017 08:28 [facility] COMPARISON: US LEG BILATERAL VENOUS DOPPLER, April 12, 2016, 20:13. INDICATIONS : Bilateral leg pain and swelling. MEDICAL HISTORY : Hypercholesterolemia. Gastroesophageal reflux disease. Chronic obstructive pulmonary disease. Hyperte nsion. DVT. Pulmonary embolism. Arthritis. SURGICAL HISTORY : Tonsillectomy.Appendectomy. Bilateral hip surgery. ENCOUNTER: Initial ACUITY: 3 days PAIN SCORE: 6/10 LOCATION: Right leg. TECHNIQUE: Venous ultrasound of the left and right leg was performed from the inguinal ligament to the proximal calf. Real-time, color Doppler and spectral tracing, compression and augmentation techniques were us ed. FINDINGS: RIGHT LEG: There is normal compressibility of the deep venous system from the inguinal region to the proximal ca lf. No echogenic clot is seen in the lumen of the common femoral, femoral, popliteal, and posterior tibial veins. There is a normal response of the venous system to proximal and distal augmentation an d respiration. LEFT LEG: There is normal compressibility of the deep venous system from the inguinal region to the proximal ca lf. No echogenic clot is seen in the lumen of the common femoral, femoral, popliteal, and posterior tibial veins. There is a normal response of the venous system to proximal and distal augmentation an d respiration. CONCLUSION: No evidence of lower extremity DVT on the right or left. Cisco Smith MD on January 05, 2017 at 9:08 Board Certified Radiologist. This report was verified electronically.
[2017-01-05 12:57] LABS: INTERNATIONAL NORMALIZED RATIO 1.2 RATIO; PROTHROMBIN TIME - PATIENT 13.7 SEC (9.8-11.6)
--- NOTE | 2017-01-05 14:46 | HHI.PR ---
Subjective Remarks C/O RUQ pain. . No cough . O2 sat 98, on 2 L. C/O wheezing but better. Objective Vital Signs Date Time Temp Pulse Resp B/P Pulse Ox O2 Delivery O2 Flow Rate FiO2 01/05/17 12:00 97.9 107 18 133/90 93 01/05/17 08:00 97.5 99 20 165/108 97 01/05/17 07:50 Nasal Cannula 2.00 01/05/17 07:41 98 Nasal Cannula 2.00 01/05/17 04:28 97 Nasal Cannula 2.00 01/05/17 04:00 97.3 92 18 156/94 96 01/05/17 00:00 97.5 102 18 150/90 96 01/04/17 23:37 98 Nasal Cannula 2.00 01/04/17 20:29 98 Nasal Cannula 2.00 01/04/17 20:00 Nasal Cannula 2.00 01/04/17 20:00 89 01/04/17 20:00 97.6 103 18 159/100 98 01/04/17 16:00 97.5 87 16 160/96 97 I/O 01/04/17 01/04/17 01/04/17 01/05/17 01/05/17 01/05/17 07:00 15:00 23:00 07:00 15:00 23:00 Intake Total 120 ml 840 ml 480 ml 240 ml Output Total 1900 ml 950 ml 800 ml 1500 ml Balance -1780 ml -110 ml -320 ml -1260 ml Intake Oral 120 ml 840 ml 480 ml 240 ml Output Urine Total 1900 ml 950 ml 800 ml 1500 ml # Voids 2 # Bowel Movements 0 3 0 0 Result Diagram: 01/05/1730 01/05/17 0630 Objective Remarks GENERAL: The patient is alert.No distress HEENT: Exam unremarkable. Eyes without icterus.Throat clear. NECK: Without adenopathy or thyroid enlargement. CHEST: Scattered wheeze bilaterally. CARDIAC: PMI distant. S1-S2 audible. No murmur or rub. ABDOMEN: Lax, bowel sounds audible.No Organomegaly EXTREMITIES: No clubbing, cyanosis, has 1 + edema. Pulses intact. Assessment and Plan Assessment and Plan IMPRESSION 1. Pulmonary embolism. 2. Bronchial asthma. 3. Status post hip replacement. 4. Anemia , Microcytic. Plan : 1. Continue O2 at 2 L. 2. prednisone 20 mg bid and taper. 3. Nebs qid , duoneb. 4. US of gallbladder 5. Start on Eliquis per Dr Cali. 6. IS q2h at bedside 7. Lasix 40 mg Po daily. Ashok Valdes MD Jan 05, 2017 14:46
--- NOTE | 2017-01-05 16:02 | PD.CARD.PN ---
Subjective Subjective Remarks No CP, mild SOB and wheezing, edema improving Objective Medications Current Medications Medications (Trade) Dose Ordered Sig/Gabi Route Start Time Stop Time Status Last Admin (Zofran Inj) 4 mg Q6H PRN IVP 12/25/16 14:45 (Colace) 100 mg Q12H PO 12/25/16 14:45 01/05/17 15:05 (Narcan Inj) 0.4 mg UNSCH PRN IV 12/25/16 14:45 (NS Flush) DAILY IVF 12/26/16 09:00 01/05/17 08:01 (Heparin Central Flush) DAILY IV FLUSH 12/26/16 09:00 01/05/17 07:53 (NS Flush) UNSCH PRN IVF 12/26/16 08:15 01/01/17 04:55 (Heparin Central Flush) UNSCH PRN IV FLUSH 12/26/16 08:15 12/30/16 06:10 (NS Flush) UNSCH PRN IVF 12/26/16 08:15 (Lipitor) 20 mg HS PO 12/26/16 21:00 01/04/17 20:50 (Symbicort 160-4.5 Inh) 2 puff Q12HR INH 12/26/16 09:00 01/05/17 07:58 (Cardizem Cd) 360 mg DAILY PO 12/26/16 09:00 01/05/17 07:50 (Singulair) 10 mg HS PO 12/26/16 21:00 01/04/17 20:50 (Carafate) 1 gm TID PO 12/26/16 09:00 01/05/17 11:02 (Flexeril) 10 mg Q8H PRN PO 12/26/16 08:15 12/29/16 11:30 (Protonix) 40 mg DAILY PO 12/26/16 09:00 01/05/17 07:50 (D50w (Vial) Inj) 25 ml UNSCH PRN IV PUSH 12/26/16 08:15 (Glucagon Inj) 1 mg UNSCH PRN OTHER 12/26/16 08:15 (Milk Of Magnesia Liq) 30 ml DAILY PRN PO 12/26/16 08:15 (Ativan) 0.5 mg BID PO 12/26/16 09:00 01/05/17 07:51 ([place] 5-325 Mg) 2 tab Q4H PRN PO 12/26/16 08:30 01/05/17 15:05 (Hycodan Liq) 5 ml Q6H PRN PO 12/26/16 08:30 01/05/17 07:53 (KCl) 60 meq DAILY PO 12/27/16 11:15 01/05/17 07:51 (Pill Splitter) 1 ea UNSCH PRN OTHER 12/31/16 08:45 (Mycostatin Liq) 5 ml QID SWISH-SWAL 12/31/16 13:00 01/05/17 11:02 (Miralax) 17 gm DAILY PRN PO 12/31/16 10:15 (Folate) 1 mg DAILY PO 01/02/17 09:00 01/05/17 07:51 (Eliquis) 5 mg BID PO 01/03/17 21:00 01/05/17 07:51 (Deltasone) 20 mg BID PO 01/04/17 21:00 01/05/17 07:50 (Lasix) 40 mg DAILY PO 01/06/17 09:00 Vital Signs / I&O Vital Signs Date Time Temp Pulse Resp B/P Pulse Ox O2 Delivery O2 Flow Rate FiO2 01/05/17 15:46 97 Nasal Cannula 2.00 01/05/17 12:00 97.9 107 18 133/90 93 01/05/17 08:00 97.5 99 20 165/108 97 01/05/17 07:50 Nasal Cannula 2.00 01/05/17 07:41 98 Nasal Cannula 2.00 01/05/17 04:28 97 Nasal Cannula 2.00 01/05/17 04:00 97.3 92 18 156/94 96 01/05/17 00:00 97.5 102 18 150/90 96 01/04/17 23:37 98 Nasal Cannula 2.00 01/04/17 20:29 98 Nasal Cannula 2.00 01/04/17 20:00 Nasal Cannula 2.00 01/04/17 20:00 89 01/04/17 20:00 97.6 103 18 159/100 98 I/O 01/04/17 01/04/17 01/04/17 01/05/17 01/05/17 01/05/17 07:00 15:00 23:00 07:00 15:00 23:00 Intake Total 120 ml 840 ml 480 ml 240 ml Output Total 1900 ml 950 ml 800 ml 1500 ml Balance -1780 ml -110 ml -320 ml -1260 ml Intake Oral 120 ml 840 ml 480 ml 240 ml Output Urine Total 1900 ml 950 ml 800 ml 1500 ml # Voids 2 # Bowel Movements 0 3 0 0 Physical Exam GENERAL: In NAD SKIN: Warm and dry. HEAD: Normocephalic. EYES: No scleral icterus. No injection or drainage. NECK: Supple, trachea midline. No JVD or lymphadenopathy. CARDIOVASCULAR: Regular rate and rhythm without murmurs, gallops, or rubs. RESPIRATORY: Bilat wheezes. No accessory muscle use. GASTROINTESTINAL: Abdomen soft, non-tender, nondistended. MUSCULOSKELETAL: No cyanosis, mild edema. Laboratory Laboratory Tests Test 01/04/17 01/05/17 01/05/17 18:06 06:30 12:29 White Blood Count 18.4 TH/MM3 17.0 TH/MM3 Red Blood Count 4.25 MIL/MM3 4.29 MIL/MM3 Hemoglobin 9.6 GM/DL 9.8 GM/DL Hematocrit 32.5 % 32.9 % Mean Corpuscular Volume 76.7 FL 76.7 FL Mean Corpuscular Hemoglobin 22.7 PG 22.8 PG Mean Corpuscular Hemoglobin 29.6 % 29.8 % Concent Red Cell Distribution Width 24.2 % 24.4 % Platelet Count 319 TH/MM3 297 TH/MM3 Mean Platelet Volume 7.1 FL 7.3 FL Neutrophils (%) (Auto) 90.2 % 89.3 % Lymphocytes (%) (Auto) 3.4 % 5.0 % Monocytes (%) (Auto) 6.2 % 5.5 % Eosinophils (%) (Auto) 0.0 % 0.1 % Basophils (%) (Auto) 0.2 % 0.1 % Neutrophils # (Auto) 16.6 TH/MM3 15.2 TH/MM3 Lymphocytes # (Auto) 0.6 TH/MM3 0.8 TH/MM3 Monocytes # (Auto) 1.1 TH/MM3 0.9 TH/MM3 Eosinophils # (Auto) 0.0 TH/MM3 0.0 TH/MM3 Basophils # (Auto) 0.0 TH/MM3 0.0 TH/MM3 CBC Comment AUTO DIFF AUTO DIFF Differential Total Cells 100 Counted Neutrophils % (Manual) 80 % Band Neutrophils % 5 % Lymphocytes % 3 % Monocytes % 6 % Neutrophils # (Manual) 16.7 TH/MM3 Metamyelocytes 3 % Myelocytes 3 % Nucleated Red Blood Cells 2 /100 WBC Differential Comment FINAL DIFF MANUAL Platelet Estimate NORMAL Platelet Morphology Comment NORMAL Ovalocytes 1+ Prothrombin Time 14.7 SEC 13.7 SEC Prothromb Time International 1.3 RATIO 1.2 RATIO Ratio Activated Partial 25.4 SEC Thromboplast Time Sodium Level 135 MEQ/L Potassium Level 4.0 MEQ/L Chloride Level 96 MEQ/L Carbon Dioxide Level 31.8 MEQ/L Anion Gap 7 MEQ/L Blood Urea Nitrogen 14 MG/DL Creatinine 0.77 MG/DL Estimat Glomerular Filtration 106 ML/MIN Rate Random Glucose 228 MG/DL Calcium Level 8.6 MG/DL Total Bilirubin 0.4 MG/DL Aspartate Amino Transf 34 U/L (AST/SGOT) Alanine Aminotransferase 80 U/L (ALT/SGPT) Alkaline Phosphatase 176 U/L Total Protein 5.7 GM/DL Albumin 3.3 GM/DL Imaging Last Impressions Lower Extremity Ultrasound 01/05/17 0000 Signed Impressions: Service Date/Time: Thursday, January 05, 2017 08:28 - CONCLUSION: No evidence of lower extremity DVT on the right or left. Cisco Smith MD Abdomen/Pelvis CT 12/31/16 0000 Signed Impressions: Service Date/Time: Saturday, December 31, 2016 21:53 - CONCLUSION: 1. No renal calculi or hydronephrosis. 2. Diverticulosis without diverticulitis. Davion Carranza MD Abdomen X-Ray 12/30/16 0000 Signed Impressions: Service Date/Time: Friday, December 30, 2016 15:57 - CONCLUSION: Nonspecific bowel gas pattern with moderate amount of stool present greatest in the right side of the colon. Jeferson Cervantes MD Hip X-Ray 12/26/16 0000 Signed Impressions: Service Date/Time: December 16:04 - CONCLUSION: Migration of the greater trochanteric screw laterally with separation of the side plate by approximately 7-8 mm. Glendy Harry MD Femur X-Ray 12/26/16 0000 Signed Impressions: Service Date/Time: December 16:04 - CONCLUSION: Migration of the screw laterally at the level of the greater trochanteric component with separation of the plate by 7-8 mm. Glendy Harry MD Chest X-Ray 12/25/16 1238 Signed Impressions: Service Date/Time: Sunday, December 25, 2016 13:27 - CONCLUSION: No focal infiltrates seen. Adriel Thompson MD CT Angiography 12/25/16 0000 Signed Impressions: Service Date/Time: Sunday, December 25, 2016 14:45 - CONCLUSION: Positive for pulmonary embolism in the right lower lobe with a large filling defect extending into at least 3 segmental arteries. No evidence of pleural effusion. Adriel Thompson MD Assessment and Plan Problem List: (1) Pulmonary embolism (2) S/P total hip arthroplasty (3) Acute asthma exacerbation (4) Acute hypercapnic respiratory failure (5) Hypertension (6) Hyperlipidemia Assessment and Plan US w no evidence of DVT. LE edema improving, continue diuresis. Echo w nl RV fx and size, nl LV fx. Continue anticoagulation with Eliquis. Continue tx for asthma exacerbation incl steroids as per Dr. Hernandez. Sinus tachycardia likely related to PE and bronchodilators. Continue monitoring. Increase activity as tolerated. No new cardiac issues. Problem Qualifiers (1) Pulmonary embolism: Qualified Code: I26.99 - Other pulmonary embolism without acute cor pulmonale, unspecified chronicity (2) Acute asthma exacerbation: Qualified Code: J45.901 - Asthma with acute exacerbation, unspecified asthma severity (3) Hypertension: Qualified Code: I10 - Essential hypertension (4) Hyperlipidemia: Qualified Code: E78.5 - Hyperlipidemia, unspecified hyperlipidemia type Adam Moody MD Jan 05, 2017 16:01
[2017-01-05 16:24] LABS: BANDS 7 % (0-6); METAMYELOCYTES 3 % (0-1); MYELOCYTES 7 % (0-0); NEUTROPHIL # MANUAL DIFF 16.2 TH/MM3 (1.8-7.7); POLYS (SEG NEUTROPHILS) 78 % (16-70); WBC DIFF SAMPLE 100
[2017-01-05 16:25] LABS: OVALOCYTES 1+ (NORMAL); PLATELET ESTIMATE SMEAR NORMAL (NORMAL); PLATELET MORPHOLOGY NORMAL (NORMAL); SCAN/DIFF FINAL DIFF MANUAL; TEARDROP RBCS 1+ (NORMAL)
[2017-01-05] MEDS: ATORVASTATIN 20 MG TAB PO SCH (21:32)
[2017-01-05] MEDS: MONTELUKAST SODIUM 10 MG TAB PO SCH (21:32)
--- NOTE | 2017-01-05 21:59 | RADRPT ---
EXAM DATE/TIME: 01/05/2017 20:51 [facility] COMPARISON: No previous studies available for comparison. INDICATIONS : Right upper quadrant pain. MEDICAL HISTORY : Hypercholesterolemia. Deep venous thrombosis. Arthritis. Pneumonia. Pulmonary embolism. Tachycardia. COPD. Asthma. Pneumonia. Dyspnea. GERD. HTN. Anxiety. Anticoagulant therapy, Coumadin and Lovenox. SURGICAL HISTORY : Tonsillectomy. Appendectomy. Bilateral hip x4. Blood transfusions. ENCOUNTER: Subsequent ACUITY: 4-6 days PAIN SCORE: 7/10 LOCATION: Right upper quadrant MEASUREMENTS: LIVER: 19.6 cm length COMMON DUCT: 5 mm RIGHT KIDNEY: 10.6 x 5.0 x 5.4 cm FINDINGS: The liver is slightly echogenic which maybe due to fatty infiltration and or hepatocellular dysfuncti on. The gallbladder is intact without any evidence for gallstones, gallbladder wall thickening, or pe richolecystic fluid. The visualized head of the pancreas, and right kidney appear grossly intact for technique. CONCLUSION: The liver is slightly echogenic which maybe due to fatty infiltration and or hepatoce llular dysfunction. Glendy Harry MD on January 05, 2017 at 21:57 Board Certified Radiologist. This report was verified electronically.
[2017-01-06] VITALS (10 sets, daily range): BP systolic 135–151; BP diastolic 88–96; PULSE 92–115; RESP 18–20; TEMP 97.1–97.9; O2SAT 97–98
[2017-01-06] MEDS: DOCUSATE SODIUM 100 MG CAP PO SCH ×2 (01:22→15:05)
[2017-01-06] MEDS: ACETAMINOPHEN/HYDROcodone 325 MG/5 MG TAB PO PRN ×5 (01:22→23:57)
[2017-01-06] MEDS: RESP: ALBUTEROL 2.5 MG/IPRATROPIUM 0.5 MG NEB (PRN) NEB ×3 (01:31→15:29)
[2017-01-06] MEDS: INSULIN ASPART SUPPLEMENTAL SCALE SQ SCH ×4 (06:28→21:02)
[2017-01-06 06:56] LABS: AUTOMATED NEUTROPHIL # 11.9 TH/MM3 (1.8-7.7); BASOPHIL % 0.1 % (0.0-2.0); EOSINOPHIL % 0.1 % (0.0-4.0); LYMPH % 3.6 % (9.0-44.0); LYMPHOCYTE # 0.5 TH/MM3 (1.0-4.8); MEAN CELL VOLUME 76.2 FL (80.0-100.0); MEAN CORPUSCULAR HEMOGLOBIN 23.6 PG (27.0-34.0); MONO % 4.7 % (0.0-8.0); NEUT % 91.5 % (16.0-70.0); PLATELET COUNT 253 TH/MM3 (150-450); RED BLOOD COUNT 4.33 MIL/MM3 (4.50-5.90); RED CELL DISTRIBUTION WIDTH 24.8 % (11.6-17.2)
[2017-01-06 07:01] LABS: HEMO FLAGS AUTO DIFF
[2017-01-06 07:09] LABS: APTT (PATIENT) 23.6 SEC (24.3-30.1); PROTHROMBIN TIME - PATIENT 11.5 SEC (9.8-11.6)
[2017-01-06 07:28] LABS: ALKALINE PHOSPHATASE 184 U/L (45-117); ALT (GPT) 90 U/L (12-78); ANION GAP 9 MEQ/L (5-15); AST (GOT) 37 U/L (15-37); BICARBONATE 28.8 MEQ/L (21.0-32.0); BLOOD UREA NITROGEN 15 MG/DL (7-18); CHLORIDE 97 MEQ/L (98-107); GLOMERULAR FILTRATION RATE 102 ML/MIN (>89); POTASSIUM 4.4 MEQ/L (3.5-5.1); SODIUM (NA) 135 MEQ/L (136-145); TOTAL BILIRUBIN ADULT 0.3 MG/DL (0.2-1.0)
[2017-01-06 08:09] LABS: BANDS 1 % (0-6); METAMYELOCYTES 5 % (0-1); MYELOCYTES 4 % (0-0); PLATELET ESTIMATE SMEAR NORMAL (NORMAL); PLATELET MORPHOLOGY NORMAL (NORMAL); POLYS (SEG NEUTROPHILS) 82 % (16-70); SCAN/DIFF FINAL DIFF MANUAL; WBC DIFF SAMPLE 100
[2017-01-06 08:10] LABS: OVALOCYTES 1+ (NORMAL); TEARDROP RBCS 1+ (NORMAL)
--- NOTE | 2017-01-06 08:11 | HHI.PR ---
Subjective History of Present Illness Patient have SOB cough and sever wheezing Have Pulmonary embolism... on Elaquis 5 mg PO BID . Abdominal distension checked abdominal X- ray nothing acute have leg swelling on Lasix 40 mg IV Daily. c/o oral thrush on Nystatin 5 ml PO QID.on prednisone 20 mg PO BID. Lower extremity swelling checked venous doppler of lower extremity for DVT...negative for DVT. Ultrasound of Right upper quadrant shows normal gall bladder. Review of Systems Constitutional Constitutional: Fatigue, Weakness Pulmonary Respiratory: Coughing, Shortness of Breath, Wheezing Musculoskeletal MS Remarks Right Hip Pain. Vitals/Results Intake & Output 01/05/17 01/05/17 01/06/17 15:00 23:00 07:00 Intake Total 960 ml Output Total 950 ml Balance 10 ml Intake Oral 960 ml Output Urine Total 950 ml # Bowel Movements 2 Vital Signs Vital Signs Date Time Temp Pulse Resp B/P Pulse Ox O2 Delivery O2 Flow Rate FiO2 01/06/17 08:00 98 Nasal Cannula 2.00 01/06/17 04:00 97.2 92 20 140/95 98 01/06/17 01:31 98 Nasal Cannula 2.00 01/06/17 00:00 97.8 98 20 143/88 97 01/05/17 20:00 86 01/05/17 20:00 98.2 87 20 150/90 98 01/05/17 20:00 Nasal Cannula 2.00 01/05/17 16:00 97.7 107 18 158/90 96 01/05/17 15:46 97 Nasal Cannula 2.00 01/05/17 12:00 97.9 107 18 133/90 93 CBC/BMP: 01/06/17 0630 01/06/17 0630 Lab Results Laboratory Tests Test 01/05/17 01/06/17 12:29 06:30 Prothrombin Time 13.7 SEC 11.5 SEC Prothromb Time International 1.2 RATIO 1.0 RATIO Ratio White Blood Count 13.0 TH/MM3 Red Blood Count 4.33 MIL/MM3 Hemoglobin 10.2 GM/DL Hematocrit 33.0 % Mean Corpuscular Volume 76.2 FL Mean Corpuscular Hemoglobin 23.6 PG Mean Corpuscular Hemoglobin 31.0 % Concent Red Cell Distribution Width 24.8 % Platelet Count 253 TH/MM3 Mean Platelet Volume 7.3 FL Neutrophils (%) (Auto) 91.5 % Lymphocytes (%) (Auto) 3.6 % Monocytes (%) (Auto) 4.7 % Eosinophils (%) (Auto) 0.1 % Basophils (%) (Auto) 0.1 % Neutrophils # (Auto) 11.9 TH/MM3 Lymphocytes # (Auto) 0.5 TH/MM3 Monocytes # (Auto) 0.6 TH/MM3 Eosinophils # (Auto) 0.0 TH/MM3 Basophils # (Auto) 0.0 TH/MM3 CBC Comment AUTO DIFF Activated Partial 23.6 SEC Thromboplast Time Sodium Level 135 MEQ/L Potassium Level 4.4 MEQ/L Chloride Level 97 MEQ/L Carbon Dioxide Level 28.8 MEQ/L Anion Gap 9 MEQ/L Blood Urea Nitrogen 15 MG/DL Creatinine 0.80 MG/DL Estimat Glomerular Filtration 102 ML/MIN Rate Random Glucose 240 MG/DL Calcium Level 8.5 MG/DL Total Bilirubin 0.3 MG/DL Aspartate Amino Transf 37 U/L (AST/SGOT) Alanine Aminotransferase 90 U/L (ALT/SGPT) Alkaline Phosphatase 184 U/L Total Protein 5.7 GM/DL Albumin 3.2 GM/DL Physical Exam General General Appearance: Well Developed, Well Nourished, Comfortable, Anxious Eyes Eye Exam: Pupils Equal, Pupils Reactive, Sclera White, Extraocular Movement Intact Ears & Nose Ears & Nose Exam: Nasal Mucosa [place] Throat Throat Exam: Oral Mucosa [place] & Moist, Oral Pharynx Normal Neck Neck Exam: Neck Supple, Trachea Midline Pulmonary Resp Exam: Diminished Breath Sounds Resp Remarks Bilateral wheezing. Cardiology CV Exam: Good Perfusion, Tachycardia Gastrointestinal/Abdomen GI Exam: Soft, Non-Tender, Bowel Sounds Present, Distended Musculoskeletal MS Exam: Joints Intact Integumentary Skin Exam: Warm, Dry Extremeties Extremities Exam: Pedal Pulses Palpable, Moderate Edema, Pitting Edema Extremeties Remarks Right hip mild tenderness Neurologic Neuro Exam: Alert, Awake, Oriented, Speech Clear, Moving All Extremities, No Focal Deficits Psychiatric Psych Exam: Appropriate Responses VTE Prophylaxis VTE Prophylaxis Meds: Heparin PUD Prophylasis PUD Prophylaxis: Protonix, Carafate Assessment/Plan Problem List: (1) Pulmonary embolism (2) Sepsis (3) Acute asthma exacerbation (4) Hypertension (5) Hyperlipidemia (6) Anemia (7) Abscess of hip, right Plan: hx of infection, currently on abx (8) S/P total hip arthroplasty Assessment/Plan continue with BIPAP PRN Duonebs neublization On prednisone 20 mg PO BID. Pulmonary input noted on Hycodan PRN cough hx DVT and PE, was on Eliquis now with recurrent PE, on Eliquis 5 mg PO BID. appreciate cardiology and hematology input, drop in H &H, will monitor. s/p PRBC Transfusion ..stable. was on IV Iron therapy. Checks stools for OB x 2 Negative. ID input noted.. follow CBC sinus tachycardia.. will monitor, on Cardizem Pain management, on [place] and Flexeril PRN noted with elevated blood glucose, on steroids on accuchecks AC/HS with ISS PPI and carafate for GI prophylaxis Hypokalemia resolved. Abdominal distension check abdominal X- ray have leg swelling on Lasix 40 mg IV Daily. Oral thrush on Nystatin 5 ml PO QID. Lower extremity swelling checked venous doppler of lower extremity for DVT...negative for DVT Check CBC with diff CMP and PT/ INR in AM. Condition guarded, multiple admissions, D/W patient. Discussed Condition with: Patient Problem Qualifiers (1) Pulmonary embolism: Qualified Code: I26.99 - Other pulmonary embolism without acute cor pulmonale, unspecified chronicity (2) Sepsis: Qualified Code: A41.9 - Sepsis, due to unspecified organism (3) Acute asthma exacerbation: Qualified Code: J45.901 - Asthma with acute exacerbation, unspecified asthma severity (4) Hypertension: Qualified Code: I10 - Essential hypertension (5) Hyperlipidemia: Qualified Code: E78.5 - Hyperlipidemia, unspecified hyperlipidemia type (6) Anemia: Qualified Code: D64.9 - Anemia, unspecified type (7) S/P total hip arthroplasty: Qualified Code: Z96.641 - Status post total replacement of right hip Myron Woodward MD January 06, 2017 08:11
[2017-01-06] MEDS: DILTIAZEM-CD 180 MG CAP ER PO SCH (09:58)
[2017-01-06] MEDS: SUCRALFATE 1 GM TAB PO SCH ×3 (09:58→17:14)
[2017-01-06] MEDS: FOLIC ACID 1 MG TAB PO SCH (09:58)
[2017-01-06] MEDS: POTASSIUM CHLORIDE 10 MEQ CONTROLLED RELEASE TAB PO SCH (09:58)
[2017-01-06] MEDS: LORazepam 0.5 MG TAB PO SCH ×2 (09:58→21:01)
[2017-01-06] MEDS: PANTOPRAZOLE SOD 40 MG DELAYED RELEASE TAB PO SCH (09:58)
[2017-01-06] MEDS: NYSTATIN SUSP 500,000 U/5 ML CUP SWISH-SWAL SCH ×4 (09:58→21:01)
[2017-01-06] MEDS: APIXABAN 5 MG TABLET PO SCH ×2 (09:58→21:01)
[2017-01-06] MEDS: FUROSEMIDE 40 MG TAB PO SCH (09:58)
[2017-01-06] MEDS: predniSONE 20 MG TAB PO SCH ×2 (09:58→21:01)
[2017-01-06] MEDS: HYDROcodone 5 MG/HOMATROPINE 1.5 MG SYRUP 5 ML CUP PO PRN ×2 (09:59→21:01)
[2017-01-06] MEDS: SODIUM CHLORIDE 0.9% FLUSH 10 ML FLUSH IVF SCH (09:59)
[2017-01-06] MEDS: BUDESONIDE-FORMOTEROL 160/4.5 MCG INHALER INH SCH ×2 (09:59→21:02)
--- NOTE | 2017-01-06 10:29 | PD.ONC.PN ---
Subjective Subjective Remarks Afebrile overnight. Pt states overall his breathing is improved. He tells me he passed his O2 walk test. He is keeping his L leg elevated due to swelling. Objective Data Date Time Temp Pulse Resp B/P Pulse Ox O2 Delivery O2 Flow Rate FiO2 01/06/17 08:00 98 Nasal Cannula 2.00 01/06/17 08:00 97.1 97 20 151/96 97 01/06/17 04:00 97.2 92 20 140/95 98 01/06/17 01:31 98 Nasal Cannula 2.00 01/06/17 00:00 97.8 98 20 143/88 97 01/05/17 20:00 86 01/05/17 20:00 98.2 87 20 150/90 98 01/05/17 20:00 Nasal Cannula 2.00 01/05/17 16:00 97.7 107 18 158/90 96 01/05/17 15:46 97 Nasal Cannula 2.00 01/05/17 12:00 97.9 107 18 133/90 93 Result Diagram: 01/06/17 0630 01/06/17 0630 Laboratory Results Laboratory Tests Test 01/05/17 01/06/17 12:29 06:30 Prothrombin Time 13.7 SEC 11.5 SEC Prothromb Time International 1.2 RATIO 1.0 RATIO Ratio White Blood Count 13.0 TH/MM3 Red Blood Count 4.33 MIL/MM3 Hemoglobin 10.2 GM/DL Hematocrit 33.0 % Mean Corpuscular Volume 76.2 FL Mean Corpuscular Hemoglobin 23.6 PG Mean Corpuscular Hemoglobin 31.0 % Concent Red Cell Distribution Width 24.8 % Platelet Count 253 TH/MM3 Mean Platelet Volume 7.3 FL Neutrophils (%) (Auto) 91.5 % Lymphocytes (%) (Auto) 3.6 % Monocytes (%) (Auto) 4.7 % Eosinophils (%) (Auto) 0.1 % Basophils (%) (Auto) 0.1 % Neutrophils # (Auto) 11.9 TH/MM3 Lymphocytes # (Auto) 0.5 TH/MM3 Monocytes # (Auto) 0.6 TH/MM3 Eosinophils # (Auto) 0.0 TH/MM3 Basophils # (Auto) 0.0 TH/MM3 CBC Comment AUTO DIFF Differential Total Cells 100 Counted Neutrophils % (Manual) 82 % Band Neutrophils % 1 % Lymphocytes % 2 % Monocytes % 6 % Neutrophils # (Manual) 12.0 TH/MM3 Metamyelocytes 5 % Myelocytes 4 % Differential Comment FINAL DIFF MANUAL Platelet Estimate NORMAL Platelet Morphology Comment NORMAL Tear Drop Cells 1+ Ovalocytes 1+ Activated Partial 23.6 SEC Thromboplast Time Sodium Level 135 MEQ/L Potassium Level 4.4 MEQ/L Chloride Level 97 MEQ/L Carbon Dioxide Level 28.8 MEQ/L Anion Gap 9 MEQ/L Blood Urea Nitrogen 15 MG/DL Creatinine 0.80 MG/DL Estimat Glomerular Filtration 102 ML/MIN Rate Random Glucose 240 MG/DL Calcium Level 8.5 MG/DL Total Bilirubin 0.3 MG/DL Aspartate Amino Transf 37 U/L (AST/SGOT) Alanine Aminotransferase 90 U/L (ALT/SGPT) Alkaline Phosphatase 184 U/L Total Protein 5.7 GM/DL Albumin 3.2 GM/DL Administered Medications Medications (Trade) Dose Ordered Sig/Gabi Route PRN Reason Start Time Stop Time Status Last Admin Dose Admin Docusate Sodium (Colace) 100 mg Q12H PO 12/25/16 14:45 01/06/17 01:22 Sodium Chloride (NS Flush) DAILY IVF 12/26/16 09:00 01/06/17 09:59 Heparin Sodium (Porcine) (Heparin Central Flush) DAILY IV FLUSH 12/26/16 09:00 01/06/17 09:59 Sodium Chloride (NS Flush) UNSCH PRN IVF SEE PROTOCOL 12/26/16 08:15 01/01/17 04:55 Heparin Sodium (Porcine) (Heparin Central Flush) UNSCH PRN IV FLUSH SEE PROTOCOL 12/26/16 08:15 12/30/16 06:10 Atorvastatin Calcium (Lipitor) 20 mg HS PO 12/26/16 21:00 01/05/17 21:32 Budesonide/ Formoterol Fumarate (Symbicort 160-4.5 Inh) 2 puff Q12HR INH 12/26/16 09:00 01/06/17 09:59 Diltiazem HCl (Cardizem Cd) 360 mg DAILY PO 12/26/16 09:00 01/06/17 09:58 Montelukast Sodium (Singulair) 10 mg HS PO 12/26/16 21:00 01/05/17 21:32 Sucralfate (Carafate) 1 gm TID PO 12/26/16 09:00 01/06/17 09:58 Cyclobenzaprine HCl (Flexeril) 10 mg Q8H PRN PO spasms 12/26/16 08:15 12/29/16 11:30 Pantoprazole Sodium (Protonix) 40 mg DAILY PO 12/26/16 09:00 01/06/17 09:58 Lorazepam (Ativan) 0.5 mg BID PO 12/26/16 09:00 01/06/17 09:58 Acetaminophen/ Hydrocodone Bitart ([place] 5-325 Mg) 2 tab Q4H PRN PO PAIN SCALE 5 TO 10 12/26/16 08:30 01/06/17 06:29 Hydrocodone Bit/ Homatropine Methylb (Hycodan Liq) 5 ml Q6H PRN PO COUGH 12/26/16 08:30 01/06/17 09:59 Potassium Chloride (KCl) 60 meq DAILY PO 12/27/16 11:15 01/06/17 09:58 Nystatin (Mycostatin Liq) 5 ml QID SWISH-SWAL 12/31/16 13:00 01/06/17 09:58 Folic Acid (Folate) 1 mg DAILY PO 01/02/17 09:00 01/06/17 09:58 Apixaban (Eliquis) 5 mg BID PO 01/03/17 21:00 01/06/17 09:58 Prednisone (Deltasone) 20 mg BID PO 01/04/17 21:00 01/06/17 09:58 Furosemide (Lasix) 40 mg DAILY PO 01/06/17 09:00 01/06/17 09:58 Objective Remarks GENERAL: Middle aged male, sitting up in chair at bedside in no distress. SKIN: Warm and dry. Bilateral knees erythemic. HEAD: Normocephalic. EYES: No injection or drainage. NECK: Supple, trachea midline. CARDIOVASCULAR: Regular rate and rhythm without murmurs. RESPIRATORY: On 3L NC. +Expiratory wheezing. GASTROINTESTINAL: Abdomen protuberant, somewhat firm. Non-tender. EXTREMITIES: LLE slightly edematous. NEUROLOGICAL: No obvious focal deficit. Awake, alert, and oriented x3. Assessment/Plan Assessment 51-year-old male with recurrent pulmonary emboli. --was on Eliquis 2.5mg BID outpatient (prophylactic dosing) h/o Reactive airway disease complicated by frequent exacerbations. Multiple intubations pneumothorax. right lower extremity deep venous thrombosis in December of 2015. Left lung pulmonary embolus December of 2015. Right lung pulmonary embolus in December of 2016. 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 Plan 1. Pt tolerating Eliquis. Pt to stay on therapeutic dosing at 5mg po BID. 2. LLE edema; US negative for DVT. 3. Monitor CBC as inpatient. 4. Will followup with Dr Cali as outpatient in 1-2 weeks. Attending Statement The exam, history, and the medical decision-making described in the above note were completed with the assistance of the mid-level provider. I reviewed and agree with the findings presented. I attest that I had a [id number] encounter with the patient on the same day, and personally performed and documented my assessment and findings in the medical record. Hb stable continue Eliquis Microcytosis better but persists. additional iron infusion in am d/w Lucero Hilton January 06, 2017 10:29 Reuben Cali MD January 07, 2017 00:03
--- NOTE | 2017-01-06 16:11 | PD.CARD.PN ---
Subjective Subjective Remarks No CP, mild SOB, mild LE edema Objective Medications Current Medications Medications (Trade) Dose Ordered Sig/Gabi Route Start Time Stop Time Status Last Admin (Zofran Inj) 4 mg Q6H PRN IVP 12/25/16 14:45 (Colace) 100 mg Q12H PO 12/25/16 14:45 01/06/17 15:05 (Narcan Inj) 0.4 mg UNSCH PRN IV 12/25/16 14:45 (NS Flush) DAILY IVF 12/26/16 09:00 01/06/17 09:59 (Heparin Central Flush) DAILY IV FLUSH 12/26/16 09:00 01/06/17 09:59 (NS Flush) UNSCH PRN IVF 12/26/16 08:15 01/01/17 04:55 (Heparin Central Flush) UNSCH PRN IV FLUSH 12/26/16 08:15 12/30/16 06:10 (NS Flush) UNSCH PRN IVF 12/26/16 08:15 (Lipitor) 20 mg HS PO 12/26/16 21:00 01/05/17 21:32 (Symbicort 160-4.5 Inh) 2 puff Q12HR INH 12/26/16 09:00 01/06/17 09:59 (Cardizem Cd) 360 mg DAILY PO 12/26/16 09:00 01/06/17 09:58 (Singulair) 10 mg HS PO 12/26/16 21:00 01/05/17 21:32 (Carafate) 1 gm TID PO 12/26/16 09:00 01/06/17 11:52 (Flexeril) 10 mg Q8H PRN PO 12/26/16 08:15 12/29/16 11:30 (Protonix) 40 mg DAILY PO 12/26/16 09:00 01/06/17 09:58 (D50w (Vial) Inj) 25 ml UNSCH PRN IV PUSH 12/26/16 08:15 (Glucagon Inj) 1 mg UNSCH PRN OTHER 12/26/16 08:15 (Milk Of Magnesia Liq) 30 ml DAILY PRN PO 12/26/16 08:15 (Ativan) 0.5 mg BID PO 12/26/16 09:00 01/06/17 09:58 ([place] 5-325 Mg) 2 tab Q4H PRN PO 12/26/16 08:30 01/06/17 15:05 (Hycodan Liq) 5 ml Q6H PRN PO 12/26/16 08:30 01/06/17 09:59 (KCl) 60 meq DAILY PO 12/27/16 11:15 01/06/17 09:58 (Pill Splitter) 1 ea UNSCH PRN OTHER 12/31/16 08:45 (Mycostatin Liq) 5 ml QID SWISH-SWAL 12/31/16 13:00 01/06/17 11:52 (Miralax) 17 gm DAILY PRN PO 12/31/16 10:15 (Folate) 1 mg DAILY PO 01/02/17 09:00 01/06/17 09:58 (Eliquis) 5 mg BID PO 01/03/17 21:00 01/06/17 09:58 (Deltasone) 20 mg BID PO 01/04/17 21:00 01/06/17 09:58 (Lasix) 40 mg DAILY PO 01/06/17 09:00 01/06/17 09:58 Vital Signs / I&O Vital Signs Date Time Temp Pulse Resp B/P Pulse Ox O2 Delivery O2 Flow Rate FiO2 01/06/17 12:33 103 01/06/17 12:00 97.6 115 20 135/92 97 01/06/17 10:08 Nasal Cannula 2.00 01/06/17 08:00 98 Nasal Cannula 2.00 01/06/17 08:00 97.1 97 20 151/96 97 01/06/17 04:00 97.2 92 20 140/95 98 01/06/17 01:31 98 Nasal Cannula 2.00 01/06/17 00:00 97.8 98 20 143/88 97 01/05/17 20:00 86 01/05/17 20:00 98.2 87 20 150/90 98 01/05/17 20:00 Nasal Cannula 2.00 I/O 01/05/17 01/05/17 01/05/17 01/06/17 01/06/17 01/06/17 07:00 15:00 23:00 07:00 15:00 23:00 Intake Total 240 ml 960 ml 960 ml Output Total 1500 ml 950 ml 1475 ml Balance -1260 ml 10 ml -515 ml Intake Oral 240 ml 960 ml 960 ml Output Urine Total 1500 ml 950 ml 1475 ml # Bowel Movements 0 2 2 Physical Exam GENERAL: In NAD SKIN: Warm and dry. HEAD: Normocephalic. EYES: No scleral icterus. No injection or drainage. NECK: Supple, trachea midline. No JVD or lymphadenopathy. CARDIOVASCULAR: Regular rate and rhythm without murmurs, gallops, or rubs. RESPIRATORY: Bilat wheezes. No accessory muscle use. GASTROINTESTINAL: Abdomen soft, non-tender, nondistended. MUSCULOSKELETAL: No cyanosis, mild edema. Laboratory Laboratory Tests Test 01/06/17 06:30 White Blood Count 13.0 TH/MM3 Red Blood Count 4.33 MIL/MM3 Hemoglobin 10.2 GM/DL Hematocrit 33.0 % Mean Corpuscular Volume 76.2 FL Mean Corpuscular Hemoglobin 23.6 PG Mean Corpuscular Hemoglobin 31.0 % Concent Red Cell Distribution Width 24.8 % Platelet Count 253 TH/MM3 Mean Platelet Volume 7.3 FL Neutrophils (%) (Auto) 91.5 % Lymphocytes (%) (Auto) 3.6 % Monocytes (%) (Auto) 4.7 % Eosinophils (%) (Auto) 0.1 % Basophils (%) (Auto) 0.1 % Neutrophils # (Auto) 11.9 TH/MM3 Lymphocytes # (Auto) 0.5 TH/MM3 Monocytes # (Auto) 0.6 TH/MM3 Eosinophils # (Auto) 0.0 TH/MM3 Basophils # (Auto) 0.0 TH/MM3 CBC Comment AUTO DIFF Differential Total Cells 100 Counted Neutrophils % (Manual) 82 % Band Neutrophils % 1 % Lymphocytes % 2 % Monocytes % 6 % Neutrophils # (Manual) 12.0 TH/MM3 Metamyelocytes 5 % Myelocytes 4 % Differential Comment FINAL DIFF MANUAL Platelet Estimate NORMAL Platelet Morphology Comment NORMAL Tear Drop Cells 1+ Ovalocytes 1+ Prothrombin Time 11.5 SEC Prothromb Time International 1.0 RATIO Ratio Activated Partial 23.6 SEC Thromboplast Time Sodium Level 135 MEQ/L Potassium Level 4.4 MEQ/L Chloride Level 97 MEQ/L Carbon Dioxide Level 28.8 MEQ/L Anion Gap 9 MEQ/L Blood Urea Nitrogen 15 MG/DL Creatinine 0.80 MG/DL Estimat Glomerular Filtration 102 ML/MIN Rate Random Glucose 240 MG/DL Calcium Level 8.5 MG/DL Total Bilirubin 0.3 MG/DL Aspartate Amino Transf 37 U/L (AST/SGOT) Alanine Aminotransferase 90 U/L (ALT/SGPT) Alkaline Phosphatase 184 U/L Total Protein 5.7 GM/DL Albumin 3.2 GM/DL Imaging Last Impressions Lower Extremity Ultrasound 01/05/17 0000 Signed Impressions: Service Date/Time: Thursday, January 05, 2017 08:28 - CONCLUSION: No evidence of lower extremity DVT on the right or left. Cisco Smith MD Gall Bladder Ultrasound 01/05/17 0000 Signed Impressions: Service Date/Time: Thursday, January 05, 2017 20:51 - CONCLUSION: The liver is slightly echogenic which maybe due to fatty infiltration and or hepatocellular dysfunction. Glendy Harry MD Abdomen/Pelvis CT 12/31/16 0000 Signed Impressions: Service Date/Time: Saturday, December 31, 2016 21:53 - CONCLUSION: 1. No renal calculi or hydronephrosis. 2. Diverticulosis without diverticulitis. Davion Carranza MD Abdomen X-Ray 12/30/16 0000 Signed Impressions: Service Date/Time: Friday, December 30, 2016 15:57 - CONCLUSION: Nonspecific bowel gas pattern with moderate amount of stool present greatest in the right side of the colon. Jeferson Cervantes MD Hip X-Ray 12/26/16 0000 Signed Impressions: Service Date/Time: December 16:04 - CONCLUSION: Migration of the greater trochanteric screw laterally with separation of the side plate by approximately 7-8 mm. Glendy Harry MD Femur X-Ray 12/26/16 0000 Signed Impressions: Service Date/Time: December 16:04 - CONCLUSION: Migration of the screw laterally at the level of the greater trochanteric component with separation of the plate by 7-8 mm. Glendy Harry MD Chest X-Ray 12/25/16 1238 Signed Impressions: Service Date/Time: Sunday, December 25, 2016 13:27 - CONCLUSION: No focal infiltrates seen. Adriel Thompson MD CT Angiography 12/25/16 0000 Signed Impressions: Service Date/Time: Sunday, December 25, 2016 14:45 - CONCLUSION: Positive for pulmonary embolism in the right lower lobe with a large filling defect extending into at least 3 segmental arteries. No evidence of pleural effusion. Adriel Thompson MD Assessment and Plan Problem List: (1) Pulmonary embolism (2) S/P total hip arthroplasty (3) Acute asthma exacerbation (4) Acute hypercapnic respiratory failure (5) Hypertension (6) Hyperlipidemia Assessment and Plan No new cardiac issues. US w no evidence of DVT. LE edema improving, continue diuresis. Echo w nl RV fx and size, nl LV fx. Continue anticoagulation with Eliquis. Continue tx for asthma exacerbation incl steroids as per Dr. Hernandez. Sinus tachycardia likely related to PE and bronchodilators. Continue monitoring. Increase activity as tolerated. Anticipate discharge soon. Problem Qualifiers (1) Pulmonary embolism: Qualified Code: I26.99 - Other pulmonary embolism without acute cor pulmonale, unspecified chronicity (2) Acute asthma exacerbation: Qualified Code: J45.901 - Asthma with acute exacerbation, unspecified asthma severity (3) Hypertension: Qualified Code: I10 - Essential hypertension (4) Hyperlipidemia: Qualified Code: E78.5 - Hyperlipidemia, unspecified hyperlipidemia type Adam Moody MD January 06, 2017 16:11
--- NOTE | 2017-01-06 16:51 | HHI.PR ---
Subjective Remarks alert afebrile occasional wheeze LESS LE EDEMA Objective Vital Signs Date Time Temp Pulse Resp B/P Pulse Ox O2 Delivery O2 Flow Rate FiO2 01/06/17 12:33 103 01/06/17 12:00 97.6 115 20 135/92 97 01/06/17 10:08 Nasal Cannula 2.00 01/06/17 08:00 98 Nasal Cannula 2.00 01/06/17 08:00 97.1 97 20 151/96 97 01/06/17 04:00 97.2 92 20 140/95 98 01/06/17 01:31 98 Nasal Cannula 2.00 01/06/17 00:00 97.8 98 20 143/88 97 01/05/17 20:00 86 01/05/17 20:00 98.2 87 20 150/90 98 01/05/17 20:00 Nasal Cannula 2.00 I/O 01/05/17 01/05/17 01/05/17 01/06/17 01/06/17 01/06/17 07:00 15:00 23:00 07:00 15:00 23:00 Intake Total 240 ml 960 ml 960 ml Output Total 1500 ml 950 ml 1475 ml Balance -1260 ml 10 ml -515 ml Intake Oral 240 ml 960 ml 960 ml Output Urine Total 1500 ml 950 ml 1475 ml # Bowel Movements 0 2 2 Result Diagram: 01/06/17 0630 01/06/17 0630 Objective Remarks GENERAL: SKIN: Warm and dry. HEAD: Atraumatic. Normocephalic. EYES: Pupils equal and round. No scleral icterus. No injection or drainage. ENT: No nasal bleeding or discharge. Mucous membranes pink and moist. NECK: Trachea midline. No JVD. CARDIOVASCULAR: Regular rate and rhythm. RESPIRATORY: No accessory muscle use. scattered wheeze GASTROINTESTINAL: Abdomen soft, non-tender, nondistended. Hepatic and splenic margins not palpable. MUSCULOSKELETAL: Extremities without clubbing, cyanosis, edema lower exrtremeties more on right , redness around right knee no tenderness. No obvious deformities. NEUROLOGICAL: Awake and alert. No obvious cranial nerve deficits. Motor grossly within normal limits. Five out of 5 muscle strength in the arms and legs. Normal speech. PSYCHIATRIC: Appropriate mood and affect; insight and judgment normal. Assessment and Plan Assessment and Plan respiratory failure acute PE Asthma PLAN anticoags bronchodilator therapy increase activity decrease prednisone Mary Hernandez MD January 06, 2017 16:51
[2017-01-06] MEDS: MONTELUKAST SODIUM 10 MG TAB PO SCH (21:01)
[2017-01-06] MEDS: ATORVASTATIN 20 MG TAB PO SCH (21:01)
[2017-01-07] VITALS (12 sets, daily range): BP systolic 109–154; BP diastolic 67–94; PULSE 87–107; RESP 18–22; TEMP 97.4–98.2; O2SAT 95–100
[2017-01-07] MEDS: RESP: ALBUTEROL 2.5 MG/IPRATROPIUM 0.5 MG NEB (PRN) NEB ×4 (01:03→19:07)
[2017-01-07] MEDS: DOCUSATE SODIUM 100 MG CAP PO SCH ×2 (03:48→16:48)
[2017-01-07] MEDS: ACETAMINOPHEN/HYDROcodone 325 MG/5 MG TAB PO PRN ×3 (03:49→20:45)
[2017-01-07] MEDS: HYDROcodone 5 MG/HOMATROPINE 1.5 MG SYRUP 5 ML CUP PO PRN (05:31)
[2017-01-07 06:07] LABS: AUTOMATED NEUTROPHIL # 10.2 TH/MM3 (1.8-7.7); BASOPHIL % 0.2 % (0.0-2.0); EOSINOPHIL % 0.3 % (0.0-4.0); HEMATOCRIT 34.4 % (39.0-51.0); LYMPH % 3.7 % (9.0-44.0); LYMPHOCYTE # 0.4 TH/MM3 (1.0-4.8); MEAN CELL VOLUME 77.2 FL (80.0-100.0); MEAN CORPUSCULAR HEMOGLOBIN 23.3 PG (27.0-34.0); MEAN CORPUSCULAR HGB CONC 30.2 % (32.0-36.0); MONO % 5.8 % (0.0-8.0); PLATELET COUNT 196 TH/MM3 (150-450); RED BLOOD COUNT 4.46 MIL/MM3 (4.50-5.90); RED CELL DISTRIBUTION WIDTH 24.4 % (11.6-17.2); WHITE BLOOD COUNT 11.3 TH/MM3 (4.0-11.0)
[2017-01-07] MEDS: INSULIN ASPART SUPPLEMENTAL SCALE SQ SCH ×4 (06:19→23:07)
[2017-01-07 06:27] LABS: APTT (PATIENT) 22.4 SEC (24.3-30.1); HEMO FLAGS AUTO DIFF; PROTHROMBIN TIME - PATIENT 10.9 SEC (9.8-11.6)
[2017-01-07 06:36] LABS: ALKALINE PHOSPHATASE 192 U/L (45-117); TOTAL BILIRUBIN ADULT 0.4 MG/DL (0.2-1.0)
[2017-01-07 06:38] LABS: ALT (GPT) 110 U/L (12-78); ANION GAP 8 MEQ/L (5-15); AST (GOT) 55 U/L (15-37); BICARBONATE 29.4 MEQ/L (21.0-32.0); BLOOD UREA NITROGEN 12 MG/DL (7-18); CHLORIDE 99 MEQ/L (98-107); GLOMERULAR FILTRATION RATE 105 ML/MIN (>89); POTASSIUM 4.5 MEQ/L (3.5-5.1); SODIUM (NA) 136 MEQ/L (136-145)
[2017-01-07] MEDS ORDERED: IRON SUCROSE INJ 200 MG in SODIUM CHLORIDE 0.9% INJ 100 ML IV ONE (07:00)
--- NOTE | 2017-01-07 08:11 | HHI.PR ---
Subjective Remarks alert afebrile occasional wheeze LESS LE EDEMA Objective Vital Signs Date Time Temp Pulse Resp B/P Pulse Ox O2 Delivery O2 Flow Rate FiO2 01/07/17 03:56 97.4 94 18 145/93 96 01/07/17 01:04 98 Nasal Cannula 2.00 01/07/17 00:05 97.6 98 18 135/92 97 01/07/17 00:00 Nasal Cannula 2.00 01/06/17 21:09 111 01/06/17 20:04 97 Nasal Cannula 2.00 01/06/17 20:00 Nasal Cannula 2.00 01/06/17 19:35 97.5 114 18 148/91 97 01/06/17 16:07 97.9 112 19 143/92 97 01/06/17 12:33 103 01/06/17 12:00 97.6 115 20 135/92 97 01/06/17 10:08 Nasal Cannula 2.00 I/O 01/06/17 01/06/17 01/06/17 01/07/17 01/07/17 01/07/17 07:00 15:00 23:00 07:00 15:00 23:00 Intake Total 960 ml 1200 ml 1200 ml Output Total 1475 ml 1400 ml 1375 ml Balance -515 ml -200 ml -175 ml Intake Oral 960 ml 1200 ml 1200 ml Output Urine Total 1475 ml 1400 ml 1375 ml # Bowel Movements 2 1 0 Result Diagram: 01/07/17 0540 01/07/17 0540 Objective Remarks GENERAL: SKIN: Warm and dry. HEAD: Atraumatic. Normocephalic. EYES: Pupils equal and round. No scleral icterus. No injection or drainage. ENT: No nasal bleeding or discharge. Mucous membranes pink and moist. NECK: Trachea midline. No JVD. CARDIOVASCULAR: Regular rate and rhythm. RESPIRATORY: No accessory muscle use. scattered wheeze GASTROINTESTINAL: Abdomen soft, non-tender, nondistended. Hepatic and splenic margins not palpable. MUSCULOSKELETAL: Extremities without clubbing, cyanosis, edema lower exrtremeties more on right , redness around right knee no tenderness. No obvious deformities. NEUROLOGICAL: Awake and alert. No obvious cranial nerve deficits. Motor grossly within normal limits. Five out of 5 muscle strength in the arms and legs. Normal speech. PSYCHIATRIC: Appropriate mood and affect; insight and judgment normal. Assessment and Plan Assessment and Plan respiratory failure acute PE Asthma PLAN anticoags bronchodilator therapy increase activity decrease prednisone Mary Hernandez MD January 07, 2017 08:11
[2017-01-07] MEDS: DILTIAZEM-CD 180 MG CAP ER PO SCH (08:20)
[2017-01-07] MEDS: PANTOPRAZOLE SOD 40 MG DELAYED RELEASE TAB PO SCH (08:20)
[2017-01-07] MEDS: LORazepam 0.5 MG TAB PO SCH ×2 (08:20→20:28)
[2017-01-07] MEDS: SUCRALFATE 1 GM TAB PO SCH ×3 (08:20→16:48)
[2017-01-07] MEDS: APIXABAN 5 MG TABLET PO SCH ×2 (08:20→20:28)
[2017-01-07] MEDS: NYSTATIN SUSP 500,000 U/5 ML CUP SWISH-SWAL SCH ×4 (08:21→20:28)
[2017-01-07] MEDS: predniSONE 20 MG TAB PO SCH (08:21)
[2017-01-07] MEDS: POTASSIUM CHLORIDE 10 MEQ CONTROLLED RELEASE TAB PO SCH (08:21)
[2017-01-07] MEDS: FOLIC ACID 1 MG TAB PO SCH (08:21)
[2017-01-07] MEDS: FUROSEMIDE 40 MG TAB PO SCH (08:21)
[2017-01-07] MEDS: BUDESONIDE-FORMOTEROL 160/4.5 MCG INHALER INH SCH ×2 (08:21→20:29)
[2017-01-07] MEDS: SODIUM CHLORIDE 0.9% FLUSH 10 ML FLUSH IVF SCH (08:22)
--- NOTE | 2017-01-07 08:33 | HHI.PR ---
Subjective History of Present Illness Patient have SOB cough and sever wheezing Have Pulmonary embolism... on Elaquis 5 mg PO BID . Abdominal distension checked abdominal X- ray nothing acute have leg swelling on Lasix 40 mg IV Daily. c/o oral thrush on Nystatin 5 ml PO QID.on prednisone 20 mg PO BID. L Review of Systems Constitutional Constitutional: Fatigue, Weakness Pulmonary Respiratory: Coughing, Shortness of Breath, Wheezing Musculoskeletal MS Remarks Right Hip Pain. Vitals/Results Intake & Output 01/06/17 01/06/17 01/07/17 15:00 23:00 07:00 Intake Total 960 ml 1200 ml 1200 ml Output Total 1475 ml 1400 ml 1375 ml Balance -515 ml -200 ml -175 ml Intake Oral 960 ml 1200 ml 1200 ml Output Urine Total 1475 ml 1400 ml 1375 ml # Bowel Movements 2 1 0 Vital Signs Vital Signs Date Time Temp Pulse Resp B/P Pulse Ox O2 Delivery O2 Flow Rate FiO2 01/07/17 03:56 97.4 94 18 145/93 96 01/07/17 01:04 98 Nasal Cannula 2.00 01/07/17 00:05 97.6 98 18 135/92 97 01/07/17 00:00 Nasal Cannula 2.00 01/06/17 21:09 111 01/06/17 20:04 97 Nasal Cannula 2.00 01/06/17 20:00 Nasal Cannula 2.00 01/06/17 19:35 97.5 114 18 148/91 97 01/06/17 16:07 97.9 112 19 143/92 97 01/06/17 12:33 103 01/06/17 12:00 97.6 115 20 135/92 97 01/06/17 10:08 Nasal Cannula 2.00 CBC/BMP: 01/07/17 0540 01/07/17 0540 Lab Results Laboratory Tests Test 01/07/17 05:40 White Blood Count 11.3 TH/MM3 Red Blood Count 4.46 MIL/MM3 Hemoglobin 10.4 GM/DL Hematocrit 34.4 % Mean Corpuscular Volume 77.2 FL Mean Corpuscular Hemoglobin 23.3 PG Mean Corpuscular Hemoglobin 30.2 % Concent Red Cell Distribution Width 24.4 % Platelet Count 196 TH/MM3 Mean Platelet Volume 7.1 FL Neutrophils (%) (Auto) 90.0 % Lymphocytes (%) (Auto) 3.7 % Monocytes (%) (Auto) 5.8 % Eosinophils (%) (Auto) 0.3 % Basophils (%) (Auto) 0.2 % Neutrophils # (Auto) 10.2 TH/MM3 Lymphocytes # (Auto) 0.4 TH/MM3 Monocytes # (Auto) 0.7 TH/MM3 Eosinophils # (Auto) 0.0 TH/MM3 Basophils # (Auto) 0.0 TH/MM3 CBC Comment AUTO DIFF Prothrombin Time 10.9 SEC Prothromb Time International 1.0 RATIO Ratio Activated Partial 22.4 SEC Thromboplast Time Sodium Level 136 MEQ/L Potassium Level 4.5 MEQ/L Chloride Level 99 MEQ/L Carbon Dioxide Level 29.4 MEQ/L Anion Gap 8 MEQ/L Blood Urea Nitrogen 12 MG/DL Creatinine 0.78 MG/DL Estimat Glomerular Filtration 105 ML/MIN Rate Random Glucose 219 MG/DL Calcium Level 8.5 MG/DL Total Bilirubin 0.4 MG/DL Aspartate Amino Transf 55 U/L (AST/SGOT) Alanine Aminotransferase 110 U/L (ALT/SGPT) Alkaline Phosphatase 192 U/L Total Protein 5.4 GM/DL Albumin 3.3 GM/DL Physical Exam General General Appearance: Well Developed, Well Nourished, Comfortable, Anxious Eyes Eye Exam: Pupils Equal, Pupils Reactive, Sclera White, Extraocular Movement Intact Ears & Nose Ears & Nose Exam: Nasal Mucosa [place] Throat Throat Exam: Oral Mucosa [place] & Moist, Oral Pharynx Normal Neck Neck Exam: Neck Supple, Trachea Midline Pulmonary Resp Exam: Diminished Breath Sounds Resp Remarks Bilateral wheezing. Cardiology CV Exam: Good Perfusion, Tachycardia Gastrointestinal/Abdomen GI Exam: Soft, Non-Tender, Bowel Sounds Present, Distended Musculoskeletal MS Exam: Joints Intact Integumentary Skin Exam: Warm, Dry Extremeties Extremities Exam: Pedal Pulses Palpable, Moderate Edema, Pitting Edema Extremeties Remarks Right hip mild tenderness Neurologic Neuro Exam: Alert, Awake, Oriented, Speech Clear, Moving All Extremities, No Focal Deficits Psychiatric Psych Exam: Appropriate Responses VTE Prophylaxis VTE Prophylaxis Meds: Heparin PUD Prophylasis PUD Prophylaxis: Protonix, Carafate Assessment/Plan Problem List: (1) Pulmonary embolism (2) Sepsis (3) Acute asthma exacerbation (4) Hypertension (5) Hyperlipidemia (6) Anemia (7) Abscess of hip, right Plan: hx of infection, currently on abx (8) S/P total hip arthroplasty Assessment/Plan continue with BIPAP PRN Duonebs neublization On prednisone 20 mg PO BID. Pulmonary input noted on Hycodan PRN cough History of DVT and PE, now with recurrent PE, on Eliquis 5 mg PO BID. appreciate cardiology and hematology input, drop in H &H, will monitor. s/p PRBC Transfusion ..stable. on IV Iron therapy. Checks stools for OB x 2 Negative. ID input noted.. follow CBC sinus tachycardia.. will monitor, on Cardizem Pain management, on [place] and Flexeril PRN noted with elevated blood glucose, on steroids on accuchecks AC/HS with ISS PPI and carafate for GI prophylaxis Hypokalemia resolved. Abdominal distension check abdominal X- ray have leg swelling on Lasix 40 mg IV Daily. Oral thrush on Nystatin 5 ml PO QID. Lower extremity swelling checked venous doppler of lower extremity for DVT...negative for DVT Check CBC with diff CMP and PT/ INR in AM. Condition guarded, multiple admissions, D/W patient. Discussed Condition with: Patient Problem Qualifiers (1) Pulmonary embolism: Qualified Code: I26.99 - Other pulmonary embolism without acute cor pulmonale, unspecified chronicity (2) Sepsis: Qualified Code: A41.9 - Sepsis, due to unspecified organism (3) Acute asthma exacerbation: Qualified Code: J45.901 - Asthma with acute exacerbation, unspecified asthma severity (4) Hypertension: Qualified Code: I10 - Essential hypertension (5) Hyperlipidemia: Qualified Code: E78.5 - Hyperlipidemia, unspecified hyperlipidemia type (6) Anemia: Qualified Code: D64.9 - Anemia, unspecified type (7) S/P total hip arthroplasty: Qualified Code: Z96.641 - Status post total replacement of right hip Myron Woodward MD January 07, 2017 08:32 Myron Woodward MD January 07, 2017 08:32
[2017-01-07 08:38] LABS: BANDS 2 % (0-6); MYELOCYTES 5 % (0-0); NEUTROPHIL # MANUAL DIFF 10.4 TH/MM3 (1.8-7.7); POLYS (SEG NEUTROPHILS) 84 % (16-70); PROMYELOCYTES 1 % (0-0); WBC DIFF SAMPLE 100
[2017-01-07 08:41] LABS: OVALOCYTES 1+ (NORMAL); PLATELET ESTIMATE SMEAR NORMAL (NORMAL); PLATELET MORPHOLOGY NORMAL (NORMAL); SCAN/DIFF FINAL DIFF MANUAL
--- NOTE | 2017-01-07 17:59 | PD.CARD.PN ---
Subjective Subjective Remarks No CP, stable SOB, mild edema Objective Medications Current Medications Medications (Trade) Dose Ordered Sig/Gabi Route Start Time Stop Time Status Last Admin (Zofran Inj) 4 mg Q6H PRN IVP 12/25/16 14:45 (Colace) 100 mg Q12H PO 12/25/16 14:45 01/07/17 16:48 (Narcan Inj) 0.4 mg UNSCH PRN IV 12/25/16 14:45 (NS Flush) DAILY IVF 12/26/16 09:00 01/07/17 08:22 (Heparin Central Flush) DAILY IV FLUSH 12/26/16 09:00 01/07/17 08:21 (NS Flush) UNSCH PRN IVF 12/26/16 08:15 01/01/17 04:55 (Heparin Central Flush) UNSCH PRN IV FLUSH 12/26/16 08:15 12/30/16 06:10 (NS Flush) UNSCH PRN IVF 12/26/16 08:15 (Lipitor) 20 mg HS PO 12/26/16 21:00 01/06/17 21:01 (Symbicort 160-4.5 Inh) 2 puff Q12HR INH 12/26/16 09:00 01/07/17 08:21 (Cardizem Cd) 360 mg DAILY PO 12/26/16 09:00 01/07/17 08:20 (Singulair) 10 mg HS PO 12/26/16 21:00 01/06/17 21:01 (Carafate) 1 gm TID PO 12/26/16 09:00 01/07/17 16:48 (Flexeril) 10 mg Q8H PRN PO 12/26/16 08:15 12/29/16 11:30 (Protonix) 40 mg DAILY PO 12/26/16 09:00 01/07/17 08:20 (D50w (Vial) Inj) 25 ml UNSCH PRN IV PUSH 12/26/16 08:15 (Glucagon Inj) 1 mg UNSCH PRN OTHER 12/26/16 08:15 (Milk Of Magnesia Liq) 30 ml DAILY PRN PO 12/26/16 08:15 (Ativan) 0.5 mg BID PO 12/26/16 09:00 01/07/17 08:20 ([place] 5-325 Mg) 2 tab Q4H PRN PO 12/26/16 08:30 01/07/17 08:22 (Hycodan Liq) 5 ml Q6H PRN PO 12/26/16 08:30 01/07/17 05:31 (KCl) 60 meq DAILY PO 12/27/16 11:15 01/07/17 08:21 (Pill Splitter) 1 ea UNSCH PRN OTHER 12/31/16 08:45 (Mycostatin Liq) 5 ml QID SWISH-SWAL 12/31/16 13:00 01/07/17 16:48 (Miralax) 17 gm DAILY PRN PO 12/31/16 10:15 (Folate) 1 mg DAILY PO 01/02/17 09:00 01/07/17 08:21 (Eliquis) 5 mg BID PO 01/03/17 21:00 01/07/17 08:20 (Lasix) 40 mg DAILY PO 01/06/17 09:00 01/07/17 08:21 (Deltasone) 20 mg DAILY PO 01/07/17 09:00 01/07/17 08:21 Vital Signs / I&O Vital Signs Date Time Temp Pulse Resp B/P Pulse Ox O2 Delivery O2 Flow Rate FiO2 01/07/17 16:25 97 Nasal Cannula 2.00 01/07/17 16:00 98.1 102 18 154/93 97 01/07/17 12:00 97.9 107 18 127/92 95 01/07/17 11:35 97 Nasal Cannula 2.00 01/07/17 08:30 Nasal Cannula 2.00 01/07/17 08:30 105 01/07/17 08:00 97.5 87 18 148/91 97 01/07/17 03:56 97.4 94 18 145/93 96 01/07/17 01:04 98 Nasal Cannula 2.00 01/07/17 00:05 97.6 98 18 135/92 97 01/07/17 00:00 Nasal Cannula 2.00 01/06/17 21:09 111 01/06/17 20:04 97 Nasal Cannula 2.00 01/06/17 20:00 Nasal Cannula 2.00 01/06/17 19:35 97.5 114 18 148/91 97 I/O 01/06/17 01/06/17 01/06/17 01/07/17 01/07/17 01/07/17 07:00 15:00 23:00 07:00 15:00 23:00 Intake Total 960 ml 1200 ml 1200 ml 960 ml Output Total 1475 ml 1400 ml 1375 ml 1450 ml Balance -515 ml -200 ml -175 ml -490 ml Intake Oral 960 ml 1200 ml 1200 ml 960 ml Output Urine Total 1475 ml 1400 ml 1375 ml 1450 ml # Bowel Movements 2 1 0 2 Physical Exam GENERAL: In NAD SKIN: Warm and dry. HEAD: Normocephalic. EYES: No scleral icterus. No injection or drainage. NECK: Supple, trachea midline. No JVD or lymphadenopathy. CARDIOVASCULAR: Regular rate and rhythm without murmurs, gallops, or rubs. RESPIRATORY: Bilat wheezes. No accessory muscle use. GASTROINTESTINAL: Abdomen soft, non-tender, nondistended. MUSCULOSKELETAL: No cyanosis, mild edema. Laboratory Laboratory Tests Test 01/07/17 05:40 White Blood Count 11.3 TH/MM3 Red Blood Count 4.46 MIL/MM3 Hemoglobin 10.4 GM/DL Hematocrit 34.4 % Mean Corpuscular Volume 77.2 FL Mean Corpuscular Hemoglobin 23.3 PG Mean Corpuscular Hemoglobin 30.2 % Concent Red Cell Distribution Width 24.4 % Platelet Count 196 TH/MM3 Mean Platelet Volume 7.1 FL Neutrophils (%) (Auto) 90.0 % Lymphocytes (%) (Auto) 3.7 % Monocytes (%) (Auto) 5.8 % Eosinophils (%) (Auto) 0.3 % Basophils (%) (Auto) 0.2 % Neutrophils # (Auto) 10.2 TH/MM3 Lymphocytes # (Auto) 0.4 TH/MM3 Monocytes # (Auto) 0.7 TH/MM3 Eosinophils # (Auto) 0.0 TH/MM3 Basophils # (Auto) 0.0 TH/MM3 CBC Comment AUTO DIFF Differential Total Cells 100 Counted Neutrophils % (Manual) 84 % Band Neutrophils % 2 % Lymphocytes % 3 % Monocytes % 5 % Neutrophils # (Manual) 10.4 TH/MM3 Myelocytes 5 % Promyelocytes 1 % Differential Comment FINAL DIFF MANUAL Platelet Estimate NORMAL Platelet Morphology Comment NORMAL Polychromasia 2.0 % Ovalocytes 1+ Hemoglobin Electrophoresis Interp Prothrombin Time 10.9 SEC Prothromb Time International 1.0 RATIO Ratio Activated Partial 22.4 SEC Thromboplast Time Sodium Level 136 MEQ/L Potassium Level 4.5 MEQ/L Chloride Level 99 MEQ/L Carbon Dioxide Level 29.4 MEQ/L Anion Gap 8 MEQ/L Blood Urea Nitrogen 12 MG/DL Creatinine 0.78 MG/DL Estimat Glomerular Filtration 105 ML/MIN Rate Random Glucose 219 MG/DL Calcium Level 8.5 MG/DL Total Bilirubin 0.4 MG/DL Aspartate Amino Transf 55 U/L (AST/SGOT) Alanine Aminotransferase 110 U/L (ALT/SGPT) Alkaline Phosphatase 192 U/L Total Protein 5.4 GM/DL Albumin 3.3 GM/DL Imaging Last Impressions Lower Extremity Ultrasound 01/05/17 0000 Signed Impressions: Service Date/Time: Thursday, January 05, 2017 08:28 - CONCLUSION: No evidence of lower extremity DVT on the right or left. Cisco Smith MD Gall Bladder Ultrasound 01/05/17 0000 Signed Impressions: Service Date/Time: Thursday, January 05, 2017 20:51 - CONCLUSION: The liver is slightly echogenic which maybe due to fatty infiltration and or hepatocellular dysfunction. Glendy Harry MD Abdomen/Pelvis CT 12/31/16 0000 Signed Impressions: Service Date/Time: Saturday, December 31, 2016 21:53 - CONCLUSION: 1. No renal calculi or hydronephrosis. 2. Diverticulosis without diverticulitis. Davion Carranza MD Abdomen X-Ray 12/30/16 0000 Signed Impressions: Service Date/Time: Friday, December 30, 2016 15:57 - CONCLUSION: Nonspecific bowel gas pattern with moderate amount of stool present greatest in the right side of the colon. Jeferson Cervantes MD Hip X-Ray 12/26/16 0000 Signed Impressions: Service Date/Time: December 16:04 - CONCLUSION: Migration of the greater trochanteric screw laterally with separation of the side plate by approximately 7-8 mm. Glendy Harry MD Femur X-Ray 12/26/16 0000 Signed Impressions: Service Date/Time: December 16:04 - CONCLUSION: Migration of the screw laterally at the level of the greater trochanteric component with separation of the plate by 7-8 mm. K. Marty Harry MD Chest X-Ray 12/25/16 1238 Signed Impressions: Service Date/Time: Sunday, December 25, 2016 13:27 - CONCLUSION: No focal infiltrates seen. Adriel Thompson MD CT Angiography 12/25/16 0000 Signed Impressions: Service Date/Time: Sunday, December 25, 2016 14:45 - CONCLUSION: Positive for pulmonary embolism in the right lower lobe with a large filling defect extending into at least 3 segmental arteries. No evidence of pleural effusion. Adriel Thompson MD Assessment and Plan Problem List: (1) Pulmonary embolism (2) S/P total hip arthroplasty (3) Acute asthma exacerbation (4) Acute hypercapnic respiratory failure (5) Hypertension (6) Hyperlipidemia Assessment and Plan Remains stable from cardiac standpoint. No new cardiac issues. US w no evidence of DVT. LE edema improving, continue diuresis. Echo w nl RV fx and size, nl LV fx. Continue anticoagulation with Eliquis. Continue tx for asthma exacerbation incl steroids as per Dr. Hernandez. Continue monitoring. Increase activity as tolerated. Anticipate discharge soon. Will schedule outpt f/u. Problem Qualifiers (1) Pulmonary embolism: Qualified Code: I26.99 - Other pulmonary embolism without acute cor pulmonale, unspecified chronicity (2) Acute asthma exacerbation: Qualified Code: J45.901 - Asthma with acute exacerbation, unspecified asthma severity (3) Hypertension: Qualified Code: I10 - Essential hypertension (4) Hyperlipidemia: Qualified Code: E78.5 - Hyperlipidemia, unspecified hyperlipidemia type Adam Moody MD January 07, 2017 17:59
[2017-01-07] MEDS: ATORVASTATIN 20 MG TAB PO SCH (20:27)
[2017-01-07] MEDS: MONTELUKAST SODIUM 10 MG TAB PO SCH (20:28)
--- NOTE | 2017-01-07 21:48 | PD.ONC.PN ---
Subjective Subjective Remarks dyspnea better no bleeding Hb coming up d/w rn Objective Data Date Time Temp Pulse Resp B/P Pulse Ox O2 Delivery O2 Flow Rate FiO2 01/07/17 20:00 97.9 107 20 130/94 97 01/07/17 16:25 97 Nasal Cannula 2.00 01/07/17 16:00 98.1 102 18 154/93 97 01/07/17 12:00 97.9 107 18 127/92 95 01/07/17 11:35 97 Nasal Cannula 2.00 01/07/17 08:30 Nasal Cannula 2.00 01/07/17 08:30 105 01/07/17 08:00 97.5 87 18 148/91 97 01/07/17 03:56 97.4 94 18 145/93 96 01/07/17 01:04 98 Nasal Cannula 2.00 01/07/17 00:05 97.6 98 18 135/92 97 01/07/17 00:00 Nasal Cannula 2.00 01/07/17 01/07/17 01/07/17 07:00 15:00 23:00 Intake Total 1200 ml 960 ml Output Total 1375 ml 1450 ml Balance -175 ml -490 ml Result Diagram: 01/07/17 0540 01/07/17 0540 Laboratory Results Laboratory Tests Test 01/07/17 05:40 White Blood Count 11.3 TH/MM3 Red Blood Count 4.46 MIL/MM3 Hemoglobin 10.4 GM/DL Hematocrit 34.4 % Mean Corpuscular Volume 77.2 FL Mean Corpuscular Hemoglobin 23.3 PG Mean Corpuscular Hemoglobin 30.2 % Concent Red Cell Distribution Width 24.4 % Platelet Count 196 TH/MM3 Mean Platelet Volume 7.1 FL Neutrophils (%) (Auto) 90.0 % Lymphocytes (%) (Auto) 3.7 % Monocytes (%) (Auto) 5.8 % Eosinophils (%) (Auto) 0.3 % Basophils (%) (Auto) 0.2 % Neutrophils # (Auto) 10.2 TH/MM3 Lymphocytes # (Auto) 0.4 TH/MM3 Monocytes # (Auto) 0.7 TH/MM3 Eosinophils # (Auto) 0.0 TH/MM3 Basophils # (Auto) 0.0 TH/MM3 CBC Comment AUTO DIFF Differential Total Cells 100 Counted Neutrophils % (Manual) 84 % Band Neutrophils % 2 % Lymphocytes % 3 % Monocytes % 5 % Neutrophils # (Manual) 10.4 TH/MM3 Myelocytes 5 % Promyelocytes 1 % Differential Comment FINAL DIFF MANUAL Platelet Estimate NORMAL Platelet Morphology Comment NORMAL Polychromasia 2.0 % Ovalocytes 1+ Hemoglobin Electrophoresis Interp Prothrombin Time 10.9 SEC Prothromb Time International 1.0 RATIO Ratio Activated Partial 22.4 SEC Thromboplast Time Sodium Level 136 MEQ/L Potassium Level 4.5 MEQ/L Chloride Level 99 MEQ/L Carbon Dioxide Level 29.4 MEQ/L Anion Gap 8 MEQ/L Blood Urea Nitrogen 12 MG/DL Creatinine 0.78 MG/DL Estimat Glomerular Filtration 105 ML/MIN Rate Random Glucose 219 MG/DL Calcium Level 8.5 MG/DL Total Bilirubin 0.4 MG/DL Aspartate Amino Transf 55 U/L (AST/SGOT) Alanine Aminotransferase 110 U/L (ALT/SGPT) Alkaline Phosphatase 192 U/L Total Protein 5.4 GM/DL Albumin 3.3 GM/DL Administered Medications Medications (Trade) Dose Ordered Sig/Gabi Route PRN Reason Start Time Stop Time Status Last Admin Dose Admin Docusate Sodium (Colace) 100 mg Q12H PO 12/25/16 14:45 01/07/17 16:48 Sodium Chloride (NS Flush) DAILY IVF 12/26/16 09:00 01/07/17 08:22 Heparin Sodium (Porcine) (Heparin Central Flush) DAILY IV FLUSH 12/26/16 09:00 01/07/17 08:21 Sodium Chloride (NS Flush) UNSCH PRN IVF SEE PROTOCOL 12/26/16 08:15 01/01/17 04:55 Heparin Sodium (Porcine) (Heparin Central Flush) UNSCH PRN IV FLUSH SEE PROTOCOL 12/26/16 08:15 12/30/16 06:10 Atorvastatin Calcium (Lipitor) 20 mg HS PO 12/26/16 21:00 01/07/17 20:27 Budesonide/ Formoterol Fumarate (Symbicort 160-4.5 Inh) 2 puff Q12HR INH 12/26/16 09:00 01/07/17 20:29 Diltiazem HCl (Cardizem Cd) 360 mg DAILY PO 12/26/16 09:00 01/07/17 08:20 Montelukast Sodium (Singulair) 10 mg HS PO 12/26/16 21:00 01/07/17 20:28 Sucralfate (Carafate) 1 gm TID PO 12/26/16 09:00 01/07/17 16:48 Cyclobenzaprine HCl (Flexeril) 10 mg Q8H PRN PO spasms 12/26/16 08:15 12/29/16 11:30 Pantoprazole Sodium (Protonix) 40 mg DAILY PO 12/26/16 09:00 01/07/17 08:20 Lorazepam (Ativan) 0.5 mg BID PO 12/26/16 09:00 01/07/17 20:28 Acetaminophen/ Hydrocodone Bitart ([place] 5-325 Mg) 2 tab Q4H PRN PO PAIN SCALE 5 TO 10 12/26/16 08:30 01/07/17 20:45 Hydrocodone Bit/ Homatropine Methylb (Hycodan Liq) 5 ml Q6H PRN PO COUGH 12/26/16 08:30 01/07/17 05:31 Potassium Chloride (KCl) 60 meq DAILY PO 12/27/16 11:15 01/07/17 08:21 Nystatin (Mycostatin Liq) 5 ml QID SWISH-SWAL 12/31/16 13:00 01/07/17 20:28 Folic Acid (Folate) 1 mg DAILY PO 01/02/17 09:00 01/07/17 08:21 Apixaban (Eliquis) 5 mg BID PO 01/03/17 21:00 01/07/17 20:28 Furosemide (Lasix) 40 mg DAILY PO 01/06/17 09:00 01/07/17 08:21 Prednisone (Deltasone) 20 mg DAILY PO 01/07/17 09:00 01/07/17 08:21 Objective Remarks GENERAL: nad SKIN: Warm and dry. NECK: Supple, trachea midline. No JVD or lymphadenopathy. LYMPHATIC: No adenopathy. CARDIOVASCULAR: Regular rate and rhythm without murmurs. RESPIRATORY: Breath sounds equal bilaterally. No accessory muscle use. GASTROINTESTINAL: Abdomen soft, non-tender, nondistended. EXTREMITIES: No cyanosis,edematous Assessment/Plan Assessment 51-year-old male with recurrent pulmonary emboli. --was on Eliquis 2.5mg BID outpatient (prophylactic dosing) h/o Reactive airway disease complicated by frequent exacerbations. Multiple intubations pneumothorax. right lower extremity deep venous thrombosis in December of 2015. Left lung pulmonary embolus December of 2015. Right lung pulmonary embolus in December of 2016. 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 Plan 1. continue Eliquis. Hb stable. no evidence of bleeding 2. Microcytosis persists . Will check Hb electrophoresis to r/o any underlying hemoglobinopathy 3. Will give additional iron infusion 4. Ok to d/c from Hematology perspective. F/U in clinic in 1-2 weeks. Reuben Cali MD January 07, 2017 21:48
[2017-01-08] VITALS (11 sets, daily range): BP systolic 117–146; BP diastolic 82–95; PULSE 99–131; RESP 18–22; TEMP 97–98; O2SAT 95–99
[2017-01-08 05:08] LABS: BACTERIA, URINE RARE /hpf; BLOOD, URINE NEG (NEG); GLUCOSE,URINE 70 mg/dL (NEG); KETONE, URINE NEG (NEG); URINE COLOR LIGHT-YELLOW (YELLW/STRAW)
[2017-01-08 05:09] LABS: COMMENT (UR) CULTURE INDICATED; CULTURE IF INDICATED CULTURE INDICATED; NITRITE,URINE POS (NEG)
[2017-01-08] MEDS: DOCUSATE SODIUM 100 MG CAP PO SCH ×2 (05:54→12:46)
[2017-01-08] MEDS: INSULIN ASPART SUPPLEMENTAL SCALE SQ SCH ×4 (05:54→21:57)
[2017-01-08 06:22] LABS: AUTOMATED NEUTROPHIL # 7.7 TH/MM3 (1.8-7.7); BASOPHIL % 0.4 % (0.0-2.0); EOSINOPHIL # 0.1 TH/MM3 (0-0.4); EOSINOPHIL % 0.7 % (0.0-4.0); HEMATOCRIT 33.5 % (39.0-51.0); LYMPH % 12.7 % (9.0-44.0); LYMPHOCYTE # 1.2 TH/MM3 (1.0-4.8); MEAN CELL VOLUME 76.6 FL (80.0-100.0); MEAN CORPUSCULAR HEMOGLOBIN 24.3 PG (27.0-34.0); MEAN CORPUSCULAR HGB CONC 31.7 % (32.0-36.0); MONO % 6.8 % (0.0-8.0); NEUT % 79.4 % (16.0-70.0); PLATELET COUNT 188 TH/MM3 (150-450); RED BLOOD COUNT 4.38 MIL/MM3 (4.50-5.90); RED CELL DISTRIBUTION WIDTH 25.5 % (11.6-17.2); WHITE BLOOD COUNT 9.7 TH/MM3 (4.0-11.0)
[2017-01-08 06:25] LABS: HEMO FLAGS AUTO DIFF
[2017-01-08 06:34] LABS: APTT (PATIENT) 23.4 SEC (24.3-30.1); PROTHROMBIN TIME - PATIENT 10.9 SEC (9.8-11.6)
[2017-01-08 06:48] LABS: ALKALINE PHOSPHATASE 191 U/L (45-117); TOTAL BILIRUBIN ADULT 0.3 MG/DL (0.2-1.0)
[2017-01-08 06:53] LABS: ALT (GPT) 105 U/L (12-78); ANION GAP 8 MEQ/L (5-15); AST (GOT) 39 U/L (15-37); BICARBONATE 30.2 MEQ/L (21.0-32.0); BLOOD UREA NITROGEN 12 MG/DL (7-18); CHLORIDE 100 MEQ/L (98-107); GLOMERULAR FILTRATION RATE 106 ML/MIN (>89); POTASSIUM 3.9 MEQ/L (3.5-5.1); SODIUM (NA) 138 MEQ/L (136-145)
[2017-01-08 07:22] LABS: BANDS 2 % (0-6); CORRECTED NUCLEATED RBC 2 /100 WBC (0-0); MYELOCYTES 5 % (0-0); NEUTROPHIL # MANUAL DIFF 7.9 TH/MM3 (1.8-7.7); POLYS (SEG NEUTROPHILS) 74 % (16-70); WBC DIFF SAMPLE 100
[2017-01-08 07:23] LABS: OVALOCYTES 1+ (NORMAL); PLATELET ESTIMATE SMEAR NORMAL (NORMAL); PLATELET MORPHOLOGY NORMAL (NORMAL); SCAN/DIFF FINAL DIFF MANUAL
--- NOTE | 2017-01-08 07:59 | HHI.PR ---
Subjective History of Present Illness Patient have SOB cough and sever wheezing Have Pulmonary embolism... on Elaquis 5 mg PO BID . c/o oral thrush on Nystatin 5 ml PO QID.on prednisone 20 mg PO BID. have burning urination check UA shows UTI Started on Rocephin 1 gram IV Daily. Review of Systems Constitutional Constitutional: Fatigue, Weakness Pulmonary Respiratory: Coughing, Shortness of Breath, Wheezing Genitourinary Genitourinary: Urgency, Dysuria, Burning Musculoskeletal MS Remarks Right Hip Pain. Vitals/Results Intake & Output 01/07/17 01/07/17 01/08/17 15:00 23:00 07:00 Intake Total 960 ml 480 ml Output Total 1450 ml 1200 ml Balance -490 ml -720 ml Intake Oral 960 ml 480 ml Output Urine Total 1450 ml 1200 ml # Bowel Movements 2 Vital Signs Vital Signs Date Time Temp Pulse Resp B/P Pulse Ox O2 Delivery O2 Flow Rate FiO2 01/08/17 04:00 97.8 99 20 131/83 96 01/08/17 00:00 97.8 112 20 141/95 97 01/07/17 20:45 94 01/07/17 20:00 97.9 107 20 130/94 97 01/07/17 16:25 97 Nasal Cannula 2.00 01/07/17 16:00 98.1 102 18 154/93 97 01/07/17 12:00 97.9 107 18 127/92 95 01/07/17 11:35 97 Nasal Cannula 2.00 01/07/17 08:30 Nasal Cannula 2.00 01/07/17 08:30 105 01/07/17 08:00 97.5 87 18 148/91 97 CBC/BMP: 01/08/17 0550 01/08/17 0550 Lab Results Laboratory Tests Test 01/08/17 01/08/17 04:20 05:50 Urine Color LIGHT-YELLOW Urine Turbidity CLEAR Urine pH 7.0 Urine Specific [place] 1.006 Urine Protein NEG mg/dL Urine Glucose (UA) 70 mg/dL Urine Ketones NEG mg/dL Urine Occult Blood NEG Urine Nitrite POS Urine Bilirubin NEG Urine Urobilinogen LESS THAN 2.0 MG/DL Urine Leukocyte Esterase NEG Urine WBC LESS THAN 1 /hpf Urine Bacteria RARE /hpf Microscopic Urinalysis Comment CULTURE INDICATED White Blood Count 9.7 TH/MM3 Red Blood Count 4.38 MIL/MM3 Hemoglobin 10.6 GM/DL Hematocrit 33.5 % Mean Corpuscular Volume 76.6 FL Mean Corpuscular Hemoglobin 24.3 PG Mean Corpuscular Hemoglobin 31.7 % Concent Red Cell Distribution Width 25.5 % Platelet Count 188 TH/MM3 Mean Platelet Volume 7.0 FL Neutrophils (%) (Auto) 79.4 % Lymphocytes (%) (Auto) 12.7 % Monocytes (%) (Auto) 6.8 % Eosinophils (%) (Auto) 0.7 % Basophils (%) (Auto) 0.4 % Neutrophils # (Auto) 7.7 TH/MM3 Lymphocytes # (Auto) 1.2 TH/MM3 Monocytes # (Auto) 0.7 TH/MM3 Eosinophils # (Auto) 0.1 TH/MM3 Basophils # (Auto) 0.0 TH/MM3 CBC Comment AUTO DIFF Differential Total Cells 100 Counted Neutrophils % (Manual) 74 % Band Neutrophils % 2 % Lymphocytes % 15 % Monocytes % 4 % Neutrophils # (Manual) 7.9 TH/MM3 Myelocytes 5 % Nucleated Red Blood Cells 2 /100 WBC Differential Comment FINAL DIFF MANUAL Platelet Estimate NORMAL Platelet Morphology Comment NORMAL Ovalocytes 1+ Keratocytes Prothrombin Time 10.9 SEC Prothromb Time International 1.0 RATIO Ratio Activated Partial 23.4 SEC Thromboplast Time Sodium Level 138 MEQ/L Potassium Level 3.9 MEQ/L Chloride Level 100 MEQ/L Carbon Dioxide Level 30.2 MEQ/L Anion Gap 8 MEQ/L Blood Urea Nitrogen 12 MG/DL Creatinine 0.77 MG/DL Estimat Glomerular Filtration 106 ML/MIN Rate Random Glucose 131 MG/DL Calcium Level 8.5 MG/DL Total Bilirubin 0.3 MG/DL Aspartate Amino Transf 39 U/L (AST/SGOT) Alanine Aminotransferase 105 U/L (ALT/SGPT) Alkaline Phosphatase 191 U/L Total Protein 5.5 GM/DL Albumin 3.0 GM/DL Microbiology Microbiology 01/08/17 Urine Culture, Received Pending Physical Exam General General Appearance: Well Developed, Well Nourished, Comfortable, Anxious Eyes Eye Exam: Pupils Equal, Pupils Reactive, Sclera White, Extraocular Movement Intact Ears & Nose Ears & Nose Exam: Nasal Mucosa [place] Throat Throat Exam: Oral Mucosa [place] & Moist, Oral Pharynx Normal Neck Neck Exam: Neck Supple, Trachea Midline Pulmonary Resp Exam: Diminished Breath Sounds Resp Remarks Bilateral wheezing. Cardiology CV Exam: Good Perfusion, Tachycardia Gastrointestinal/Abdomen GI Exam: Soft, Non-Tender, Bowel Sounds Present, Distended Musculoskeletal MS Exam: Joints Intact Integumentary Skin Exam: Warm, Dry Extremeties Extremities Exam: Pedal Pulses Palpable, Moderate Edema, Pitting Edema Extremeties Remarks Right hip mild tenderness Neurologic Neuro Exam: Alert, Awake, Oriented, Speech Clear, Moving All Extremities, No Focal Deficits Psychiatric Psych Exam: Appropriate Responses VTE Prophylaxis VTE Prophylaxis Meds: Heparin PUD Prophylasis PUD Prophylaxis: Protonix, Carafate Assessment/Plan Problem List: (1) Pulmonary embolism (2) Sepsis (3) Acute asthma exacerbation (4) Hypertension (5) Hyperlipidemia (6) Anemia (7) Abscess of hip, right Plan: hx of infection, currently on abx (8) S/P total hip arthroplasty Assessment/Plan continue with BIPAP PRN Duonebs neublization On prednisone 20 mg PO BID. Pulmonary input noted on Hycodan PRN cough History of DVT and PE, now with recurrent PE, on Eliquis 5 mg PO BID. appreciate cardiology and hematology input, drop in H &H, will monitor. s/p PRBC Transfusion ..stable. on IV Iron therapy. Checks stools for OB x 2 Negative. ID input noted.. follow CBC sinus tachycardia.. will monitor, on Cardizem Pain management, on Bogard and Flexeril PRN noted with elevated blood glucose, on steroids on accuchecks AC/HS with ISS PPI and carafate for GI prophylaxis Hypokalemia resolved. Abdominal distension check abdominal X- ray have leg swelling on Lasix 40 mg IV Daily. Oral thrush on Nystatin 5 ml PO QID. Lower extremity swelling checked venous doppler of lower extremity for DVT...negative for DVT. Burning urination check UA shows UTI Started on Rocephin 1 gram IV Daily. Check CBC with diff CMP and PT/ INR in AM. Condition guarded, multiple admissions, D/W patient. Discussed Condition with: Patient Problem Qualifiers (1) Pulmonary embolism: Qualified Code: I26.99 - Other pulmonary embolism without acute cor pulmonale, unspecified chronicity (2) Sepsis: Qualified Code: A41.9 - Sepsis, due to unspecified organism (3) Acute asthma exacerbation: Qualified Code: J45.901 - Asthma with acute exacerbation, unspecified asthma severity (4) Hypertension: Qualified Code: I10 - Essential hypertension (5) Hyperlipidemia: Qualified Code: E78.5 - Hyperlipidemia, unspecified hyperlipidemia type (6) Anemia: Qualified Code: D64.9 - Anemia, unspecified type (7) S/P total hip arthroplasty: Qualified Code: Z96.641 - Status post total replacement of right hip Myron Woodward MD January 08, 2017 07:59
--- NOTE | 2017-01-08 08:53 | HHI.PR ---
Subjective Remarks alert afebrile occasional wheeze LESS LE EDEMA Objective Vital Signs Date Time Temp Pulse Resp B/P Pulse Ox O2 Delivery O2 Flow Rate FiO2 01/08/17 08:00 97.0 108 20 117/93 97 01/08/17 04:00 97.8 99 20 131/83 96 01/08/17 00:00 97.8 112 20 141/95 97 01/07/17 20:45 94 01/07/17 20:45 Nasal Cannula 2.00 01/07/17 20:00 97.9 107 20 130/94 97 01/07/17 16:25 97 Nasal Cannula 2.00 01/07/17 16:00 98.1 102 18 154/93 97 01/07/17 12:00 97.9 107 18 127/92 95 01/07/17 11:35 97 Nasal Cannula 2.00 I/O 01/07/17 01/07/17 01/07/17 01/08/17 01/08/17 01/08/17 07:00 15:00 23:00 07:00 15:00 23:00 Intake Total 1200 ml 960 ml 480 ml Output Total 1375 ml 1450 ml 1200 ml Balance -175 ml -490 ml -720 ml Intake Oral 1200 ml 960 ml 480 ml Output Urine Total 1375 ml 1450 ml 1200 ml # Bowel Movements 0 2 Result Diagram: 01/08/17 0550 01/08/17 0550 Objective Remarks GENERAL: SKIN: Warm and dry. HEAD: Atraumatic. Normocephalic. EYES: Pupils equal and round. No scleral icterus. No injection or drainage. ENT: No nasal bleeding or discharge. Mucous membranes pink and moist. NECK: Trachea midline. No JVD. CARDIOVASCULAR: Regular rate and rhythm. RESPIRATORY: No accessory muscle use. scattered wheeze GASTROINTESTINAL: Abdomen soft, non-tender, nondistended. Hepatic and splenic margins not palpable. MUSCULOSKELETAL: Extremities without clubbing, cyanosis, edema lower exrtremeties more on right , redness around right knee no tenderness. No obvious deformities. NEUROLOGICAL: Awake and alert. No obvious cranial nerve deficits. Motor grossly within normal limits. Five out of 5 muscle strength in the arms and legs. Normal speech. PSYCHIATRIC: Appropriate mood and affect; insight and judgment normal. Assessment and Plan Assessment and Plan respiratory failure acute PE Asthma PLAN anticoags bronchodilator therapy increase activity decrease prednisone Mary,Mayr Wadie MD January 08, 2017 08:53
[2017-01-08] MEDS: BUDESONIDE-FORMOTEROL 160/4.5 MCG INHALER INH SCH ×2 (08:56→21:58)
[2017-01-08] MEDS: predniSONE 20 MG TAB PO SCH (08:56)
[2017-01-08] MEDS: POTASSIUM CHLORIDE 10 MEQ CONTROLLED RELEASE TAB PO SCH (08:57)
[2017-01-08] MEDS: DILTIAZEM-CD 180 MG CAP ER PO SCH (08:57)
[2017-01-08] MEDS: LORazepam 0.5 MG TAB PO SCH ×2 (08:57→21:56)
[2017-01-08] MEDS: APIXABAN 5 MG TABLET PO SCH ×2 (08:57→21:56)
[2017-01-08] MEDS: FOLIC ACID 1 MG TAB PO SCH (08:58)
[2017-01-08] MEDS: FUROSEMIDE 40 MG TAB PO SCH (08:58)
[2017-01-08] MEDS: PANTOPRAZOLE SOD 40 MG DELAYED RELEASE TAB PO SCH (08:58)
[2017-01-08] MEDS: SODIUM CHLORIDE 0.9% FLUSH 10 ML FLUSH IVF SCH (09:01)
[2017-01-08] MEDS: SUCRALFATE 1 GM TAB PO SCH ×3 (09:01→16:17)
[2017-01-08] MEDS: NYSTATIN SUSP 500,000 U/5 ML CUP SWISH-SWAL SCH ×4 (09:03→21:57)
[2017-01-08] MEDS: RESP: ALBUTEROL 2.5 MG/IPRATROPIUM 0.5 MG NEB (PRN) NEB ×5 (09:12→23:56)
[2017-01-08] MEDS ORDERED: IRON SUCROSE INJ 200 MG in SODIUM CHLORIDE 0.9% INJ 100 ML IV ONE (14:30)
[2017-01-08] MEDS: cefTRIAXone INJ 1,000 MG in SODIUM CHLORIDE 0.9% INJ 100 ML IV SCH (15:19)
[2017-01-08] MEDS: ACETAMINOPHEN/HYDROcodone 325 MG/5 MG TAB PO PRN ×2 (15:23→21:56)
[2017-01-08] MEDS: HYDROcodone 5 MG/HOMATROPINE 1.5 MG SYRUP 5 ML CUP PO PRN ×2 (16:17→21:57)
--- NOTE | 2017-01-08 17:09 | PD.CARD.PN ---
Subjective Subjective Remarks No CP, still SOB and wheezing, edema improving Objective Medications Current Medications Medications (Trade) Dose Ordered Sig/Gabi Route Start Time Stop Time Status Last Admin (Zofran Inj) 4 mg Q6H PRN IVP 12/25/16 14:45 (Colace) 100 mg Q12H PO 12/25/16 14:45 01/08/17 12:46 (Narcan Inj) 0.4 mg UNSCH PRN IV 12/25/16 14:45 (NS Flush) DAILY IVF 12/26/16 09:00 01/08/17 09:01 (Heparin Central Flush) DAILY IV FLUSH 12/26/16 09:00 01/08/17 08:59 (NS Flush) UNSCH PRN IVF 12/26/16 08:15 01/01/17 04:55 (Heparin Central Flush) UNSCH PRN IV FLUSH 12/26/16 08:15 12/30/16 06:10 (NS Flush) UNSCH PRN IVF 12/26/16 08:15 (Lipitor) 20 mg HS PO 12/26/16 21:00 01/07/17 20:27 (Symbicort 160-4.5 Inh) 2 puff Q12HR INH 12/26/16 09:00 01/08/17 08:56 (Cardizem Cd) 360 mg DAILY PO 12/26/16 09:00 01/08/17 08:57 (Singulair) 10 mg HS PO 12/26/16 21:00 01/07/17 20:28 (Carafate) 1 gm TID PO 12/26/16 09:00 01/08/17 16:17 (Flexeril) 10 mg Q8H PRN PO 12/26/16 08:15 12/29/16 11:30 (Protonix) 40 mg DAILY PO 12/26/16 09:00 01/08/17 08:58 (D50w (Vial) Inj) 25 ml UNSCH PRN IV PUSH 12/26/16 08:15 (Glucagon Inj) 1 mg UNSCH PRN OTHER 12/26/16 08:15 (Milk Of Magnesia Liq) 30 ml DAILY PRN PO 12/26/16 08:15 (Ativan) 0.5 mg BID PO 12/26/16 09:00 01/08/17 08:57 ([place] 5-325 Mg) 2 tab Q4H PRN PO 12/26/16 08:30 01/08/17 15:23 (Hycodan Liq) 5 ml Q6H PRN PO 12/26/16 08:30 01/08/17 16:17 (KCl) 60 meq DAILY PO 12/27/16 11:15 01/08/17 08:57 (Pill Splitter) 1 ea UNSCH PRN OTHER 12/31/16 08:45 (Mycostatin Liq) 5 ml QID SWISH-SWAL 12/31/16 13:00 01/08/17 16:30 (Miralax) 17 gm DAILY PRN PO 12/31/16 10:15 (Folate) 1 mg DAILY PO 01/02/17 09:00 01/08/17 08:58 (Eliquis) 5 mg BID PO 01/03/17 21:00 01/08/17 08:57 (Lasix) 40 mg DAILY PO 01/06/17 09:00 01/08/17 08:58 Prednisone 20 mg 20 mg DAILY PO 01/07/17 09:00 01/08/17 08:56 (Rocephin Inj/NS Inj) 100 ml @ 200 mls/hr Q24H IV 01/08/17 14:00 01/08/17 15:19 Vital Signs / I&O Vital Signs Date Time Temp Pulse Resp B/P Pulse Ox O2 Delivery O2 Flow Rate FiO2 01/08/17 16:23 18 01/08/17 16:00 97.3 118 20 131/85 97 01/08/17 12:00 98.0 131 22 130/90 97 01/08/17 09:12 95 Nasal Cannula 2.00 01/08/17 08:00 97.0 108 20 117/93 97 01/08/17 08:00 100 01/08/17 07:00 Nasal Cannula 2.00 01/08/17 04:00 97.8 99 20 131/83 96 01/08/17 00:00 97.8 112 20 141/95 97 01/07/17 20:45 94 01/07/17 20:45 Nasal Cannula 2.00 01/07/17 20:00 97.9 107 20 130/94 97 I/O 5/2/17 01/07/17 01/07/17 01/08/17 01/08/17 01/08/17 07:00 15:00 23:00 07:00 15:00 23:00 Intake Total 1200 ml 960 ml 480 ml 1080 ml Output Total 1375 ml 1450 ml 1200 ml 1225 ml Balance -175 ml -490 ml -720 ml -145 ml Intake Oral 1200 ml 960 ml 480 ml 1080 ml Output Urine Total 1375 ml 1450 ml 1200 ml 1225 ml # Bowel Movements 0 2 2 Physical Exam GENERAL: In NAD SKIN: Warm and dry. HEAD: Normocephalic. EYES: No scleral icterus. No injection or drainage. NECK: Supple, trachea midline. No JVD or lymphadenopathy. CARDIOVASCULAR: Regular rate and rhythm without murmurs, gallops, or rubs. RESPIRATORY: Bilat wheezes. No accessory muscle use. GASTROINTESTINAL: Abdomen soft, non-tender, nondistended. MUSCULOSKELETAL: No cyanosis, trace edema. Laboratory Laboratory Tests Test 01/08/17 01/08/17 04:20 05:50 Urine Color LIGHT-YELLOW Urine Turbidity CLEAR Urine pH 7.0 Urine Specific [place] 1.006 Urine Protein NEG mg/dL Urine Glucose (UA) 70 mg/dL Urine Ketones NEG mg/dL Urine Occult Blood NEG Urine Nitrite POS Urine Bilirubin NEG Urine Urobilinogen LESS THAN 2.0 MG/DL Urine Leukocyte Esterase NEG Urine WBC LESS THAN 1 /hpf Urine Bacteria RARE /hpf Microscopic Urinalysis Comment CULTURE INDICATED White Blood Count 9.7 TH/MM3 Red Blood Count 4.38 MIL/MM3 Hemoglobin 10.6 GM/DL Hematocrit 33.5 % Mean Corpuscular Volume 76.6 FL Mean Corpuscular Hemoglobin 24.3 PG Mean Corpuscular Hemoglobin 31.7 % Concent Red Cell Distribution Width 25.5 % Platelet Count 188 TH/MM3 Mean Platelet Volume 7.0 FL Neutrophils (%) (Auto) 79.4 % Lymphocytes (%) (Auto) 12.7 % Monocytes (%) (Auto) 6.8 % Eosinophils (%) (Auto) 0.7 % Basophils (%) (Auto) 0.4 % Neutrophils # (Auto) 7.7 TH/MM3 Lymphocytes # (Auto) 1.2 TH/MM3 Monocytes # (Auto) 0.7 TH/MM3 Eosinophils # (Auto) 0.1 TH/MM3 Basophils # (Auto) 0.0 TH/MM3 CBC Comment AUTO DIFF Differential Total Cells 100 Counted Neutrophils % (Manual) 74 % Band Neutrophils % 2 % Lymphocytes % 15 % Monocytes % 4 % Neutrophils # (Manual) 7.9 TH/MM3 Myelocytes 5 % Nucleated Red Blood Cells 2 /100 WBC Differential Comment FINAL DIFF MANUAL Platelet Estimate NORMAL Platelet Morphology Comment NORMAL Ovalocytes 1+ Keratocytes Prothrombin Time 10.9 SEC Prothromb Time International 1.0 RATIO Ratio Activated Partial 23.4 SEC Thromboplast Time Sodium Level 138 MEQ/L Potassium Level 3.9 MEQ/L Chloride Level 100 MEQ/L Carbon Dioxide Level 30.2 MEQ/L Anion Gap 8 MEQ/L Blood Urea Nitrogen 12 MG/DL Creatinine 0.77 MG/DL Estimat Glomerular Filtration 106 ML/MIN Rate Random Glucose 131 MG/DL Calcium Level 8.5 MG/DL Total Bilirubin 0.3 MG/DL Aspartate Amino Transf 39 U/L (AST/SGOT) Alanine Aminotransferase 105 U/L (ALT/SGPT) Alkaline Phosphatase 191 U/L Total Protein 5.5 GM/DL Albumin 3.0 GM/DL Imaging Last Impressions Lower Extremity Ultrasound 01/05/17 0000 Signed Impressions: Service Date/Time: Thursday, January 05, 2017 08:28 - CONCLUSION: No evidence of lower extremity DVT on the right or left. Cisco Smith MD Gall Bladder Ultrasound 01/05/17 0000 Signed Impressions: Service Date/Time: Thursday, January 05, 2017 20:51 - CONCLUSION: The liver is slightly echogenic which maybe due to fatty infiltration and or hepatocellular dysfunction. Glendy Harry MD Abdomen/Pelvis CT 12/31/16 0000 Signed Impressions: Service Date/Time: Saturday, December 31, 2016 21:53 - CONCLUSION: 1. No renal calculi or hydronephrosis. 2. Diverticulosis without diverticulitis. Davion Carranza MD Abdomen X-Ray 12/30/16 0000 Signed Impressions: Service Date/Time: Friday, December 30, 2016 15:57 - CONCLUSION: Nonspecific bowel gas pattern with moderate amount of stool present greatest in the right side of the colon. Jeferson Cervantes MD Hip X-Ray 12/26/16 0000 Signed Impressions: Service Date/Time: December 16:04 - CONCLUSION: Migration of the greater trochanteric screw laterally with separation of the side plate by approximately 7-8 mm. Glendy Harry MD Femur X-Ray 12/26/16 0000 Signed Impressions: Service Date/Time: December 16:04 - CONCLUSION: Migration of the screw laterally at the level of the greater trochanteric component with separation of the plate by 7-8 mm. Glendy Harry MD Chest X-Ray 12/25/16 1238 Signed Impressions: Service Date/Time: Sunday, December 25, 2016 13:27 - CONCLUSION: No focal infiltrates seen. Adriel Thompson MD CT Angiography 12/25/16 0000 Signed Impressions: Service Date/Time: Sunday, December 25, 2016 14:45 - CONCLUSION: Positive for pulmonary embolism in the right lower lobe with a large filling defect extending into at least 3 segmental arteries. No evidence of pleural effusion. Adriel Thompson MD Assessment and Plan Problem List: (1) Pulmonary embolism (2) S/P total hip arthroplasty (3) Acute asthma exacerbation (4) Acute hypercapnic respiratory failure (5) Hypertension (6) Hyperlipidemia Assessment and Plan Remains stable from cardiac standpoint. No new cardiac issues. US w no evidence of DVT. LE edema improving, continue diuresis. Echo showed nl RV fx and size, nl LV fx. Continue anticoagulation with Eliquis. Continue tx for asthma exacerbation as per Dr. Hernandez. Continue monitoring. Increase activity as tolerated. Anticipate discharge soon. Will schedule outpt f/u in our office. Will sign off. Problem Qualifiers (1) Pulmonary embolism: Qualified Code: I26.99 - Other pulmonary embolism without acute cor pulmonale, unspecified chronicity (2) Acute asthma exacerbation: Qualified Code: J45.901 - Asthma with acute exacerbation, unspecified asthma severity (3) Hypertension: Qualified Code: I10 - Essential hypertension (4) Hyperlipidemia: Qualified Code: E78.5 - Hyperlipidemia, unspecified hyperlipidemia type Adam Moody MD January 08, 2017 17:09
[2017-01-08] MEDS: ATORVASTATIN 20 MG TAB PO SCH (21:56)
[2017-01-08] MEDS: MONTELUKAST SODIUM 10 MG TAB PO SCH (21:56)
--- NOTE | 2017-01-08 23:20 | PD.ONC.PN ---
Subjective Subjective Remarks some wheezing, no LE pain no hemoptysis/no GI bleeding tolerating iron infusion/Hb improving Objective Data Date Time Temp Pulse Resp B/P Pulse Ox O2 Delivery O2 Flow Rate FiO2 01/08/17 19:35 96 Nasal Cannula 2.00 01/08/17 19:32 97.7 123 18 146/88 96 01/08/17 16:23 18 01/08/17 16:00 97.3 118 20 131/85 97 01/08/17 12:00 98.0 131 22 130/90 97 01/08/17 09:12 95 Nasal Cannula 2.00 01/08/17 08:00 97.0 108 20 117/93 97 01/08/17 08:00 100 01/08/17 07:00 Nasal Cannula 2.00 01/08/17 04:00 97.8 99 20 131/83 96 01/08/17 00:00 97.8 112 20 141/95 97 01/08/17 01/08/17 01/08/17 07:00 15:00 23:00 Intake Total 480 ml 1080 ml 720 ml Output Total 1200 ml 1225 ml 725 ml Balance -720 ml -145 ml -5 ml Result Diagram: 01/08/17 0550 01/08/17 0550 Laboratory Results Laboratory Tests Test 01/08/17 01/08/17 04:20 05:50 Urine Color LIGHT-YELLOW Urine Turbidity CLEAR Urine pH 7.0 Urine Specific [place] 1.006 Urine Protein NEG mg/dL Urine Glucose (UA) 70 mg/dL Urine Ketones NEG mg/dL Urine Occult Blood NEG Urine Nitrite POS Urine Bilirubin NEG Urine Urobilinogen LESS THAN 2.0 MG/DL Urine Leukocyte Esterase NEG Urine WBC LESS THAN 1 /hpf Urine Bacteria RARE /hpf Microscopic Urinalysis Comment CULTURE INDICATED White Blood Count 9.7 TH/MM3 Red Blood Count 4.38 MIL/MM3 Hemoglobin 10.6 GM/DL Hematocrit 33.5 % Mean Corpuscular Volume 76.6 FL Mean Corpuscular Hemoglobin 24.3 PG Mean Corpuscular Hemoglobin 31.7 % Concent Red Cell Distribution Width 25.5 % Platelet Count 188 TH/MM3 Mean Platelet Volume 7.0 FL Neutrophils (%) (Auto) 79.4 % Lymphocytes (%) (Auto) 12.7 % Monocytes (%) (Auto) 6.8 % Eosinophils (%) (Auto) 0.7 % Basophils (%) (Auto) 0.4 % Neutrophils # (Auto) 7.7 TH/MM3 Lymphocytes # (Auto) 1.2 TH/MM3 Monocytes # (Auto) 0.7 TH/MM3 Eosinophils # (Auto) 0.1 TH/MM3 Basophils # (Auto) 0.0 TH/MM3 CBC Comment AUTO DIFF Differential Total Cells 100 Counted Neutrophils % (Manual) 74 % Band Neutrophils % 2 % Lymphocytes % 15 % Monocytes % 4 % Neutrophils # (Manual) 7.9 TH/MM3 Myelocytes 5 % Nucleated Red Blood Cells 2 /100 WBC Differential Comment FINAL DIFF MANUAL Platelet Estimate NORMAL Platelet Morphology Comment NORMAL Ovalocytes 1+ Keratocytes Prothrombin Time 10.9 SEC Prothromb Time International 1.0 RATIO Ratio Activated Partial 23.4 SEC Thromboplast Time Sodium Level 138 MEQ/L Potassium Level 3.9 MEQ/L Chloride Level 100 MEQ/L Carbon Dioxide Level 30.2 MEQ/L Anion Gap 8 MEQ/L Blood Urea Nitrogen 12 MG/DL Creatinine 0.77 MG/DL Estimat Glomerular Filtration 106 ML/MIN Rate Random Glucose 131 MG/DL Calcium Level 8.5 MG/DL Total Bilirubin 0.3 MG/DL Aspartate Amino Transf 39 U/L (AST/SGOT) Alanine Aminotransferase 105 U/L (ALT/SGPT) Alkaline Phosphatase 191 U/L Total Protein 5.5 GM/DL Albumin 3.0 GM/DL Culture Results Microbiology Date/Time Procedure Status Source Growth 01/08/17 04:20 Urine Culture Received Urine Clean Catch Pending Administered Medications Medications (Trade) Dose Ordered Sig/Gabi Route PRN Reason Start Time Stop Time Status Last Admin Dose Admin Docusate Sodium (Colace) 100 mg Q12H PO 12/25/16 14:45 01/08/17 12:46 Sodium Chloride (NS Flush) DAILY IVF 12/26/16 09:00 01/08/17 09:01 Heparin Sodium (Porcine) (Heparin Central Flush) DAILY IV FLUSH 12/26/16 09:00 01/08/17 08:59 Sodium Chloride (NS Flush) UNSCH PRN IVF SEE PROTOCOL 12/26/16 08:15 01/01/17 04:55 Heparin Sodium (Porcine) (Heparin Central Flush) UNSCH PRN IV FLUSH SEE PROTOCOL 12/26/16 08:15 12/30/16 06:10 Atorvastatin Calcium (Lipitor) 20 mg HS PO 12/26/16 21:00 01/08/17 21:56 Budesonide/ Formoterol Fumarate (Symbicort 160-4.5 Inh) 2 puff Q12HR INH 12/26/16 09:00 01/08/17 21:58 Diltiazem HCl (Cardizem Cd) 360 mg DAILY PO 12/26/16 09:00 01/08/17 08:57 Montelukast Sodium (Singulair) 10 mg HS PO 12/26/16 21:00 01/08/17 21:56 Sucralfate (Carafate) 1 gm TID PO 12/26/16 09:00 01/08/17 16:17 Cyclobenzaprine HCl (Flexeril) 10 mg Q8H PRN PO spasms 12/26/16 08:15 12/29/16 11:30 Pantoprazole Sodium (Protonix) 40 mg DAILY PO 12/26/16 09:00 01/08/17 08:58 Lorazepam (Ativan) 0.5 mg BID PO 12/26/16 09:00 01/08/17 21:56 Acetaminophen/ Hydrocodone Bitart ([place] 5-325 Mg) 2 tab Q4H PRN PO PAIN SCALE 5 TO 10 12/26/16 08:30 01/08/17 21:56 Hydrocodone Bit/ Homatropine Methylb (Hycodan Liq) 5 ml Q6H PRN PO COUGH 12/26/16 08:30 01/08/17 21:57 Potassium Chloride (KCl) 60 meq DAILY PO 12/27/16 11:15 01/08/17 08:57 Nystatin (Mycostatin Liq) 5 ml QID SWISH-SWAL 12/31/16 13:00 01/08/17 21:57 Folic Acid (Folate) 1 mg DAILY PO 01/02/17 09:00 01/08/17 08:58 Apixaban (Eliquis) 5 mg BID PO 01/03/17 21:00 01/08/17 21:56 Furosemide (Lasix) 40 mg DAILY PO 01/06/17 09:00 01/08/17 08:58 Prednisone 20 mg 20 mg DAILY PO 01/07/17 09:00 01/08/17 08:56 Ceftriaxone Sodium/Sodium Chloride (Rocephin Inj/NS Inj) 100 ml @ 200 mls/hr Q24H IV 01/08/17 14:00 01/08/17 15:19 Objective Remarks GENERAL: nad SKIN: Warm and dry. NECK: Supple, trachea midline. No JVD or lymphadenopathy. LYMPHATIC: No adenopathy. CARDIOVASCULAR: Regular rate and rhythm without murmurs. RESPIRATORY: Breath sounds equal bilaterally. No accessory muscle use. GASTROINTESTINAL: Abdomen soft, non-tender, nondistended. EXTREMITIES: No cyanosis, edematous Assessment/Plan Assessment 51-year-old male with recurrent pulmonary emboli. --was on Eliquis 2.5mg BID outpatient (prophylactic dosing) h/o Reactive airway disease complicated by frequent exacerbations. Multiple intubations pneumothorax. right lower extremity deep venous thrombosis in December of 2015. Left lung pulmonary embolus December of 2015. Right lung pulmonary embolus in December of 2016. 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 Plan 1. continue Eliquis. Hb stable. no evidence of bleeding 2. Microcytosis persists . due to iron deficiency. Hb electrophoresis normoal 3. additional iron infusion today d/w Reuben Lambert MD January 08, 2017 23:20
[2017-01-09] VITALS (9 sets, daily range): BP systolic 126–143; BP diastolic 83–95; PULSE 90–115; RESP 18–20; TEMP 97.6–97.9; O2SAT 96–98
[2017-01-09] MEDS: DOCUSATE SODIUM 100 MG CAP PO SCH ×2 (02:45→13:08)
[2017-01-09] MEDS: INSULIN ASPART SUPPLEMENTAL SCALE SQ SCH ×4 (06:24→20:24)
[2017-01-09 06:53] LABS: HEMATOCRIT 34.8 % (39.0-51.0); MEAN CELL VOLUME 77.4 FL (80.0-100.0); MEAN CORPUSCULAR HEMOGLOBIN 23.7 PG (27.0-34.0); MEAN CORPUSCULAR HGB CONC 30.7 % (32.0-36.0); PLATELET COUNT 157 TH/MM3 (150-450); WHITE BLOOD COUNT 10.2 TH/MM3 (4.0-11.0)
[2017-01-09 06:56] LABS: REVIEW FLAG FINAL
[2017-01-09 07:08] LABS: APTT (PATIENT) 24.7 SEC (24.3-30.1); PROTHROMBIN TIME - PATIENT 10.9 SEC (9.8-11.6)
[2017-01-09 07:21] LABS: ALKALINE PHOSPHATASE 197 U/L (45-117); ALT (GPT) 96 U/L (12-78); ANION GAP 10 MEQ/L (5-15); AST (GOT) 27 U/L (15-37); BICARBONATE 29.4 MEQ/L (21.0-32.0); BLOOD UREA NITROGEN 12 MG/DL (7-18); CHLORIDE 98 MEQ/L (98-107); GLOMERULAR FILTRATION RATE 117 ML/MIN (>89); POTASSIUM 3.7 MEQ/L (3.5-5.1); SODIUM (NA) 137 MEQ/L (136-145); TOTAL BILIRUBIN ADULT 0.4 MG/DL (0.2-1.0)
[2017-01-09] MEDS: RESP: ALBUTEROL 2.5 MG/IPRATROPIUM 0.5 MG NEB (PRN) NEB ×4 (07:48→19:26)
[2017-01-09] MEDS: SODIUM CHLORIDE 0.9% FLUSH 10 ML FLUSH IVF SCH (09:00)
[2017-01-09] MEDS: DILTIAZEM-CD 180 MG CAP ER PO SCH (09:20)
[2017-01-09] MEDS: LORazepam 0.5 MG TAB PO SCH ×2 (09:20→20:22)
[2017-01-09] MEDS: FUROSEMIDE 40 MG TAB PO SCH (09:20)
[2017-01-09] MEDS: APIXABAN 5 MG TABLET PO SCH ×2 (09:21→20:22)
[2017-01-09] MEDS: ASCORBIC ACID 500 MG TAB PO SCH (09:21)
[2017-01-09] MEDS: NYSTATIN SUSP 500,000 U/5 ML CUP SWISH-SWAL SCH ×4 (09:21→20:22)
[2017-01-09] MEDS: ACETAMINOPHEN/HYDROcodone 325 MG/5 MG TAB PO PRN ×2 (09:22→23:09)
[2017-01-09] MEDS: BUDESONIDE-FORMOTEROL 160/4.5 MCG INHALER INH SCH ×2 (09:23→20:24)
[2017-01-09] MEDS: FOLIC ACID 1 MG TAB PO SCH (09:38)
[2017-01-09] MEDS: SUCRALFATE 1 GM TAB PO SCH ×3 (09:38→16:42)
[2017-01-09] MEDS: PANTOPRAZOLE SOD 40 MG DELAYED RELEASE TAB PO SCH (09:38)
[2017-01-09] MEDS: predniSONE 20 MG TAB PO SCH (09:38)
[2017-01-09] MEDS: POTASSIUM CHLORIDE 10 MEQ CONTROLLED RELEASE TAB PO SCH (09:38)
[2017-01-09] MEDS: HYDROcodone 5 MG/HOMATROPINE 1.5 MG SYRUP 5 ML CUP PO PRN ×2 (12:58→20:22)
--- NOTE | 2017-01-09 13:06 | HHI.PR ---
Subjective History of Present Illness Patient have SOB cough and sever wheezing Have Pulmonary embolism... on Elaquis 5 mg PO BID . c/o oral thrush on Nystatin 5 ml PO QID.on prednisone 20 mg PO BID. have burning urination check UA shows UTI on Rocephin 1 gram IV Daily. no acute issue d/w . Review of Systems Constitutional Constitutional: Fatigue, Weakness Pulmonary Respiratory: Coughing, Shortness of Breath, Wheezing Genitourinary Genitourinary: Urgency, Dysuria, Burning Musculoskeletal MS Remarks Right Hip Pain. Vitals/Results Intake & Output 01/08/17 01/08/17 01/09/17 15:00 23:00 07:00 Intake Total 1080 ml 720 ml 570 ml Output Total 1225 ml 725 ml 525 ml Balance -145 ml -5 ml 45 ml Intake Oral 1080 ml 720 ml 570 ml Output Urine Total 1225 ml 725 ml 525 ml # Bowel Movements 2 1 0 Vital Signs Vital Signs Date Time Temp Pulse Resp B/P Pulse Ox O2 Delivery O2 Flow Rate FiO2 01/09/17 12:00 97.6 106 20 126/87 96 01/09/17 08:00 Nasal Cannula 2.00 01/09/17 08:00 100 01/09/17 08:00 97.9 96 20 143/95 97 01/09/17 07:48 96 Nasal Cannula 2.00 01/09/17 03:37 Nasal Cannula 2.00 01/09/17 03:37 97.7 96 18 129/83 98 01/08/17 23:57 99 High Flow Nasal Cannula 2.00 01/08/17 23:13 Nasal Cannula 2.00 01/08/17 23:13 97.8 114 18 143/82 95 01/08/17 20:07 108 01/08/17 19:35 96 Nasal Cannula 2.00 01/08/17 19:32 97.7 123 18 146/88 96 01/08/17 19:32 Nasal Cannula 2.00 01/08/17 16:23 18 01/08/17 16:00 97.3 118 20 131/85 97 CBC/BMP: 01/09/17 0620 01/09/17 0620 Lab Results Laboratory Tests Test 01/09/17 06:20 White Blood Count 10.2 TH/MM3 Red Blood Count 4.50 MIL/MM3 Hemoglobin 10.7 GM/DL Hematocrit 34.8 % Mean Corpuscular Volume 77.4 FL Mean Corpuscular Hemoglobin 23.7 PG Mean Corpuscular Hemoglobin 30.7 % Concent Red Cell Distribution Width 27.0 % Platelet Count 157 TH/MM3 Mean Platelet Volume 7.2 FL Prothrombin Time 10.9 SEC Prothromb Time International 1.0 RATIO Ratio Activated Partial 24.7 SEC Thromboplast Time Sodium Level 137 MEQ/L Potassium Level 3.7 MEQ/L Chloride Level 98 MEQ/L Carbon Dioxide Level 29.4 MEQ/L Anion Gap 10 MEQ/L Blood Urea Nitrogen 12 MG/DL Creatinine 0.71 MG/DL Estimat Glomerular Filtration 117 ML/MIN Rate Random Glucose 121 MG/DL Calcium Level 8.6 MG/DL Total Bilirubin 0.4 MG/DL Aspartate Amino Transf 27 U/L (AST/SGOT) Alanine Aminotransferase 96 U/L (ALT/SGPT) Alkaline Phosphatase 197 U/L Total Protein 5.7 GM/DL Albumin 3.2 GM/DL Physical Exam General General Appearance: Well Developed, Well Nourished, Comfortable, Anxious Eyes Eye Exam: Pupils Equal, Pupils Reactive, Sclera White, Extraocular Movement Intact Ears & Nose Ears & Nose Exam: Nasal Mucosa [place] Throat Throat Exam: Oral Mucosa [place] & Moist, Oral Pharynx Normal Neck Neck Exam: Neck Supple, Trachea Midline Pulmonary Resp Exam: Diminished Breath Sounds Resp Remarks Bilateral wheezing. Cardiology CV Exam: Good Perfusion, Tachycardia Gastrointestinal/Abdomen GI Exam: Soft, Non-Tender, Bowel Sounds Present, Distended Musculoskeletal MS Exam: Joints Intact Integumentary Skin Exam: Warm, Dry Extremeties Extremities Exam: Pedal Pulses Palpable, Moderate Edema, Pitting Edema Extremeties Remarks Right hip mild tenderness Neurologic Neuro Exam: Alert, Awake, Oriented, Speech Clear, Moving All Extremities, No Focal Deficits Psychiatric Psych Exam: Appropriate Responses VTE Prophylaxis VTE Prophylaxis Meds: Heparin PUD Prophylasis PUD Prophylaxis: Protonix, Carafate Assessment/Plan Problem List: (1) Pulmonary embolism (2) Sepsis (3) Acute asthma exacerbation (4) Hypertension (5) Hyperlipidemia (6) Anemia (7) Abscess of hip, right Plan: hx of infection, currently on abx (8) S/P total hip arthroplasty Assessment/Plan continue with BIPAP PRN Duonebs neublization On prednisone 20 mg PO BID. Pulmonary input noted History of DVT and PE, now with recurrent PE, on Eliquis 5 mg PO BID. appreciate cardiology and hematology input, drop in H &H, will monitor. s/p PRBC Transfusion ..stable. s/p IV Iron therapy. Checks stools for OB x 2 Negative. ID input noted.. follow CBC sinus tachycardia.. will monitor, on Cardizem Pain management, on [place] and Flexeril PRN noted with elevated blood glucose, on steroids on accuchecks AC/HS with ISS PPI and carafate for GI prophylaxis Hypokalemia resolved. Abdominal distension check abdominal X- ray have leg swelling on Lasix 40 mg IV Daily. Oral thrush on Nystatin 5 ml PO QID. Lower extremity swelling checked venous doppler of lower extremity for DVT...negative for DVT. Burning urination check UA shows UTI on on Rocephin 1 gram IV Daily. Check CBC with diff CMP and PT/ INR in AM. Condition guarded, multiple admissions, D/W patient. Discussed Condition with: Patient, Spouse Problem Qualifiers (1) Pulmonary embolism: Qualified Code: I26.99 - Other pulmonary embolism without acute cor pulmonale, unspecified chronicity (2) Sepsis: Qualified Code: A41.9 - Sepsis, due to unspecified organism (3) Acute asthma exacerbation: Qualified Code: J45.901 - Asthma with acute exacerbation, unspecified asthma severity (4) Hypertension: Qualified Code: I10 - Essential hypertension (5) Hyperlipidemia: Qualified Code: E78.5 - Hyperlipidemia, unspecified hyperlipidemia type (6) Anemia: Qualified Code: D64.9 - Anemia, unspecified type (7) S/P total hip arthroplasty: Qualified Code: Z96.641 - Status post total replacement of right hip Myron Woodward MD January 09, 2017 13:06
[2017-01-09] MEDS: cefTRIAXone INJ 1,000 MG in SODIUM CHLORIDE 0.9% INJ 100 ML IV SCH (13:09)
--- NOTE | 2017-01-09 15:12 | RADRPT ---
EXAM DATE/TIME: 01/09/2017 14:52 [facility] COMPARISON: HIP RIGHT (AP&LAT 2/3VWS) W AP PELVIS, November 11, 2016, 19:32. ABDOMEN KUB ONLY, December 30, 2016, 15:5 7. INDICATIONS : Follow up right femur ORIF. MEDICAL HISTORY : None. SURGICAL HISTORY : None. ENCOUNTER: Subsequent ACUITY: 3 weeks PAIN SCORE: 3/10 LOCATION: Right femur. FINDINGS: The examination demonstrates a revision arthroplasty of the right hip. The hardware appears well-posi tioned. There are multiple cerclage wires. There is osteotomy of the proximal femur. There is fractur e through the right distal femoral diaphysis as well. There is a sideplate in good position. Alignmen t appears good. CONCLUSION: 1. Revision arthroplasty of the right hip as described above. Alignment appears good. Braulio Hull MD on January 09, 2017 at 15:09 Board Certified Radiologist. This report was verified electronically.
--- NOTE | 2017-01-09 15:13 | RADRPT ---
EXAM DATE/TIME: 01/09/2017 14:52 [facility] COMPARISON: ABDOMEN KUB ONLY, December 30, 2016, 15:57. INDICATIONS : Follow up right hip ORIF. MEDICAL HISTORY : None. SURGICAL HISTORY : None. ENCOUNTER: Subsequent ACUITY: 3 weeks PAIN SCORE: 0/10 LOCATION: Right hip. FINDINGS: There is a revision arthroplasty of the right hip. Orthopedic hardware is well-positioned. Alignment is good. CONCLUSION: 1. Good alignment of the revision arthroplasty hardware. Braulio Hull MD on January 09, 2017 at 15:10 Board Certified Radiologist. This report was verified electronically.
--- NOTE | 2017-01-09 17:13 | HHI.PR ---
Subjective Remarks alert afebrile occasional wheeze LESS LE EDEMA Objective Vital Signs Date Time Temp Pulse Resp B/P Pulse Ox O2 Delivery O2 Flow Rate FiO2 01/09/17 15:43 97 Nasal Cannula 2.00 01/09/17 12:00 97.6 106 20 126/87 96 01/09/17 10:22 22 01/09/17 08:00 Nasal Cannula 2.00 01/09/17 08:00 100 01/09/17 08:00 97.9 96 20 143/95 97 01/09/17 07:48 96 Nasal Cannula 2.00 01/09/17 03:37 Nasal Cannula 2.00 01/09/17 03:37 97.7 96 18 129/83 98 01/08/17 23:57 99 High Flow Nasal Cannula 2.00 01/08/17 23:13 Nasal Cannula 2.00 01/08/17 23:13 97.8 114 18 143/82 95 01/08/17 20:07 108 01/08/17 19:35 96 Nasal Cannula 2.00 01/08/17 19:32 97.7 123 18 146/88 96 01/08/17 19:32 Nasal Cannula 2.00 I/O 01/08/17 01/08/17 01/08/17 01/09/17 01/09/17 01/09/17 07:00 15:00 23:00 07:00 15:00 23:00 Intake Total 480 ml 1080 ml 720 ml 570 ml Output Total 1200 ml 1225 ml 725 ml 525 ml Balance -720 ml -145 ml -5 ml 45 ml Intake Oral 480 ml 1080 ml 720 ml 570 ml Output Urine Total 1200 ml 1225 ml 725 ml 525 ml # Bowel Movements 2 1 0 Result Diagram: 01/09/17 0620 01/09/17 0620 Objective Remarks GENERAL: SKIN: Warm and dry. HEAD: Atraumatic. Normocephalic. EYES: Pupils equal and round. No scleral icterus. No injection or drainage. ENT: No nasal bleeding or discharge. Mucous membranes pink and moist. NECK: Trachea midline. No JVD. CARDIOVASCULAR: Regular rate and rhythm. RESPIRATORY: No accessory muscle use. scattered wheeze GASTROINTESTINAL: Abdomen soft, non-tender, nondistended. Hepatic and splenic margins not palpable. MUSCULOSKELETAL: Extremities without clubbing, cyanosis, edema lower exrtremeties more on right , redness around right knee no tenderness. No obvious deformities. NEUROLOGICAL: Awake and alert. No obvious cranial nerve deficits. Motor grossly within normal limits. Five out of 5 muscle strength in the arms and legs. Normal speech. PSYCHIATRIC: Appropriate mood and affect; insight and judgment normal. Assessment and Plan Assessment and Plan respiratory failure acute PE Asthma PLAN anticoags bronchodilator therapy increase activity Mary Hernandez MD January 09, 2017 17:13
[2017-01-09] MEDS: MONTELUKAST SODIUM 10 MG TAB PO SCH (20:22)
[2017-01-09] MEDS: CYCLOBENZAPRINE HCL 10 MG TAB PO PRN (20:22)
[2017-01-09] MEDS: ATORVASTATIN 20 MG TAB PO SCH (20:22)
--- NOTE | 2017-01-09 23:34 | PD.ONC.PN ---
Subjective Subjective Remarks sitting up in chair on abx for UTI no GI bleeding feeling somewhat more energetic on daily eliquis Hb improving/no dyspnea d/w rn Objective Data Date Time Temp Pulse Resp B/P Pulse Ox O2 Delivery O2 Flow Rate FiO2 01/09/17 20:29 Nasal Cannula 2.00 01/09/17 19:41 97.9 115 18 126/86 96 01/09/17 16:00 97.7 115 20 130/91 97 01/09/17 15:43 97 Nasal Cannula 2.00 01/09/17 12:00 97.6 106 20 126/87 96 01/09/17 10:22 22 01/09/17 08:00 Nasal Cannula 2.00 01/09/17 08:00 100 01/09/17 08:00 97.9 96 20 143/95 97 01/09/17 07:48 96 Nasal Cannula 2.00 01/09/17 03:37 Nasal Cannula 2.00 01/09/17 03:37 97.7 96 18 129/83 98 01/08/17 23:57 99 High Flow Nasal Cannula 2.00 01/09/17 01/09/17 01/09/17 07:00 15:00 23:00 Intake Total 570 ml 1200 ml 960 ml Output Total 525 ml 2300 ml 700 ml Balance 45 ml -1100 ml 260 ml Result Diagram: 01/09/17 0620 01/09/17 0620 Laboratory Results Laboratory Tests Test 01/09/17 06:20 White Blood Count 10.2 TH/MM3 Red Blood Count 4.50 MIL/MM3 Hemoglobin 10.7 GM/DL Hematocrit 34.8 % Mean Corpuscular Volume 77.4 FL Mean Corpuscular Hemoglobin 23.7 PG Mean Corpuscular Hemoglobin 30.7 % Concent Red Cell Distribution Width 27.0 % Platelet Count 157 TH/MM3 Mean Platelet Volume 7.2 FL Prothrombin Time 10.9 SEC Prothromb Time International 1.0 RATIO Ratio Activated Partial 24.7 SEC Thromboplast Time Sodium Level 137 MEQ/L Potassium Level 3.7 MEQ/L Chloride Level 98 MEQ/L Carbon Dioxide Level 29.4 MEQ/L Anion Gap 10 MEQ/L Blood Urea Nitrogen 12 MG/DL Creatinine 0.71 MG/DL Estimat Glomerular Filtration 117 ML/MIN Rate Random Glucose 121 MG/DL Calcium Level 8.6 MG/DL Total Bilirubin 0.4 MG/DL Aspartate Amino Transf 27 U/L (AST/SGOT) Alanine Aminotransferase 96 U/L (ALT/SGPT) Alkaline Phosphatase 197 U/L Total Protein 5.7 GM/DL Albumin 3.2 GM/DL Culture Results Microbiology Date/Time Procedure Status Source Growth 01/08/17 04:20 Urine Culture - Final Complete Urine Clean Catch 50-100,000 CFU/ML MIXED ELSY... Imaging Studies Last 24 hours Impressions Hip X-Ray 01/09/17 0000 Signed Impressions: Service Date/Time: January 14:52 - CONCLUSION: 1. Good alignment of the revision arthroplasty hardware. Braulio Hull MD Femur X-Ray 01/09/17 0000 Signed Impressions: Service Date/Time: January 14:52 - CONCLUSION: 1. Revision arthroplasty of the right hip as described above. Alignment appears good. Braulio Hull MD Administered Medications Medications (Trade) Dose Ordered Sig/Gabi Route PRN Reason Start Time Stop Time Status Last Admin Dose Admin Docusate Sodium (Colace) 100 mg Q12H PO 12/25/16 14:45 01/09/17 13:08 Sodium Chloride (NS Flush) DAILY IVF 12/26/16 09:00 01/08/17 09:01 Heparin Sodium (Porcine) (Heparin Central Flush) DAILY IV FLUSH 12/26/16 09:00 01/09/17 09:39 Sodium Chloride (NS Flush) UNSCH PRN IVF SEE PROTOCOL 12/26/16 08:15 01/01/17 04:55 Heparin Sodium (Porcine) (Heparin Central Flush) UNSCH PRN IV FLUSH SEE PROTOCOL 12/26/16 08:15 01/09/17 06:24 Atorvastatin Calcium (Lipitor) 20 mg HS PO 12/26/16 21:00 01/09/17 20:22 Budesonide/ Formoterol Fumarate (Symbicort 160-4.5 Inh) 2 puff Q12HR INH 12/26/16 09:00 01/09/17 20:24 Diltiazem HCl (Cardizem Cd) 360 mg DAILY PO 12/26/16 09:00 01/09/17 09:20 Montelukast Sodium (Singulair) 10 mg HS PO 12/26/16 21:00 01/09/17 20:22 Sucralfate (Carafate) 1 gm TID PO 12/26/16 09:00 01/09/17 16:42 Cyclobenzaprine HCl (Flexeril) 10 mg Q8H PRN PO spasms 12/26/16 08:15 01/09/17 20:22 Pantoprazole Sodium (Protonix) 40 mg DAILY PO 12/26/16 09:00 01/09/17 09:38 Lorazepam (Ativan) 0.5 mg BID PO 12/26/16 09:00 01/09/17 20:22 Acetaminophen/ Hydrocodone Bitart ([place] 5-325 Mg) 2 tab Q4H PRN PO PAIN SCALE 5 TO 10 12/26/16 08:30 01/09/17 23:09 Hydrocodone Bit/ Homatropine Methylb (Hycodan Liq) 5 ml Q6H PRN PO COUGH 12/26/16 08:30 01/09/17 20:22 Potassium Chloride (KCl) 60 meq DAILY PO 12/27/16 11:15 01/09/17 09:38 Nystatin (Mycostatin Liq) 5 ml QID SWISH-SWAL 12/31/16 13:00 01/09/17 20:22 Folic Acid (Folate) 1 mg DAILY PO 01/02/17 09:00 01/09/17 09:38 Apixaban (Eliquis) 5 mg BID PO 01/03/17 21:00 01/09/17 20:22 Furosemide (Lasix) 40 mg DAILY PO 01/06/17 09:00 01/09/17 09:20 Prednisone 20 mg 20 mg DAILY PO 01/07/17 09:00 01/09/17 09:38 Ceftriaxone Sodium/Sodium Chloride (Rocephin Inj/NS Inj) 100 ml @ 200 mls/hr Q24H IV 01/08/17 14:00 01/09/17 13:09 Ascorbic Acid (Vitamin C) 500 mg DAILY PO 01/09/17 09:00 01/09/17 09:21 Objective Remarks GENERAL: nad SKIN: Warm and dry. NECK: Supple, trachea midline. No JVD or lymphadenopathy. LYMPHATIC: No adenopathy. CARDIOVASCULAR: Regular rate and rhythm without murmurs. RESPIRATORY: Breath sounds equal bilaterally. No accessory muscle use. GASTROINTESTINAL: Abdomen soft, non-tender, nondistended. EXTREMITIES: No cyanosis, or edema. Assessment/Plan Assessment 51-year-old male with recurrent pulmonary emboli. --was on Eliquis 2.5mg BID outpatient (prophylactic dosing) h/o Reactive airway disease complicated by frequent exacerbations. Multiple intubations pneumothorax. right lower extremity deep venous thrombosis in December of 2015. Left lung pulmonary embolus December of 2015. Right lung pulmonary embolus in December of 2016. 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 Plan 1.on Treatment dose Eliquis. Hb stable. no evidence of bleeding. no dyspnea/no chest pain 2. Microcytosis persists due to iron deficiency. Hb electrophoresis normal. Hb and microcytosis improving. 3. Repeat iron infusion today Answered patients questions. advised to f/u in hematology clinic after discharge d/w Reuben Lambert MD January 09, 2017 23:34
[2017-01-10] VITALS (8 sets, daily range): BP systolic 119–138; BP diastolic 73–92; PULSE 97–110; RESP 18–22; TEMP 97.5–97.7; O2SAT 97–98
[2017-01-10] MEDS: INSULIN ASPART SUPPLEMENTAL SCALE SQ SCH ×4 (05:36→21:00)
[2017-01-10] MEDS: DOCUSATE SODIUM 100 MG CAP PO SCH ×2 (05:36→12:09)
[2017-01-10] MEDS: ACETAMINOPHEN/HYDROcodone 325 MG/5 MG TAB PO PRN ×4 (05:36→22:47)
[2017-01-10 06:14] LABS: APTT (PATIENT) 23.1 SEC (24.3-30.1); PROTHROMBIN TIME - PATIENT 10.7 SEC (9.8-11.6)
[2017-01-10] MEDS ORDERED: IRON SUCROSE INJ 200 MG in SODIUM CHLORIDE 0.9% INJ 100 ML IV ONE (07:00)
[2017-01-10] MEDS: NYSTATIN SUSP 500,000 U/5 ML CUP SWISH-SWAL SCH ×4 (08:09→21:05)
[2017-01-10] MEDS: FUROSEMIDE 40 MG TAB PO SCH (08:09)
[2017-01-10] MEDS: POTASSIUM CHLORIDE 10 MEQ CONTROLLED RELEASE TAB PO SCH (08:09)
[2017-01-10] MEDS: ASCORBIC ACID 500 MG TAB PO SCH (08:09)
[2017-01-10] MEDS: LORazepam 0.5 MG TAB PO SCH ×2 (08:09→21:05)
[2017-01-10] MEDS: predniSONE 20 MG TAB PO SCH (08:09)
[2017-01-10] MEDS: DILTIAZEM-CD 180 MG CAP ER PO SCH (08:09)
[2017-01-10] MEDS: SUCRALFATE 1 GM TAB PO SCH ×3 (08:09→17:09)
[2017-01-10] MEDS: PANTOPRAZOLE SOD 40 MG DELAYED RELEASE TAB PO SCH (08:09)
[2017-01-10] MEDS: APIXABAN 5 MG TABLET PO SCH ×2 (08:09→21:05)
[2017-01-10] MEDS: FOLIC ACID 1 MG TAB PO SCH (08:09)
[2017-01-10] MEDS: SODIUM CHLORIDE 0.9% FLUSH 10 ML FLUSH IVF SCH (08:10)
[2017-01-10] MEDS: BUDESONIDE-FORMOTEROL 160/4.5 MCG INHALER INH SCH ×2 (08:10→21:06)
--- NOTE | 2017-01-10 08:21 | HHI.PR ---
Subjective History of Present Illness Patient have SOB cough and sever wheezing Have Pulmonary embolism... on Elaquis 5 mg PO BID . c/o oral thrush on Nystatin 5 ml PO QID.on prednisone 20 mg PO BID. have burning urination check UA shows UTI on Rocephin 1 gram IV Daily. getting better Getting IV Iron therapy. Review of Systems Constitutional Constitutional: Fatigue, Weakness Pulmonary Respiratory: Coughing, Shortness of Breath, Wheezing Genitourinary Genitourinary: Urgency, Dysuria, Burning Musculoskeletal MS Remarks Right Hip Pain. Vitals/Results Intake & Output 01/09/17 01/09/17 01/10/17 15:00 23:00 07:00 Intake Total 1200 ml 960 ml 240 ml Output Total 2300 ml 700 ml 450 ml Balance -1100 ml 260 ml -210 ml Intake Oral 1200 ml 960 ml 240 ml Output Urine Total 2300 ml 700 ml 450 ml # Bowel Movements 2 1 0 Vital Signs Vital Signs Date Time Temp Pulse Resp B/P Pulse Ox O2 Delivery O2 Flow Rate FiO2 01/10/17 05:34 Nasal Cannula 2.00 01/10/17 03:30 97.5 110 18 135/81 98 01/09/17 23:03 97.9 113 18 141/91 97 01/09/17 20:29 Nasal Cannula 2.00 01/09/17 20:22 110 01/09/17 19:41 97.9 115 18 126/86 96 01/09/17 16:00 97.7 115 20 130/91 97 01/09/17 15:43 97 Nasal Cannula 2.00 01/09/17 12:00 97.6 106 20 126/87 96 01/09/17 10:22 22 CBC/BMP: 01/09/17 0620 01/09/17 0620 Lab Results Laboratory Tests Test 01/10/17 05:40 Prothrombin Time 10.7 SEC Prothromb Time International 1.0 RATIO Ratio Activated Partial 23.1 SEC Thromboplast Time Physical Exam General General Appearance: Well Developed, Well Nourished, Comfortable, Anxious Eyes Eye Exam: Pupils Equal, Pupils Reactive, Sclera White, Extraocular Movement Intact Ears & Nose Ears & Nose Exam: Nasal Mucosa [place] Throat Throat Exam: Oral Mucosa [place] & Moist, Oral Pharynx Normal Neck Neck Exam: Neck Supple, Trachea Midline Pulmonary Resp Exam: Diminished Breath Sounds Resp Remarks Bilateral wheezing. Cardiology CV Exam: Good Perfusion, Tachycardia Gastrointestinal/Abdomen GI Exam: Soft, Non-Tender, Bowel Sounds Present, Distended GI Remarks distended abdomen. Musculoskeletal MS Exam: Joints Intact Integumentary Skin Exam: Warm, Dry Extremeties Extremities Exam: Pedal Pulses Palpable, Moderate Edema, Pitting Edema Extremeties Remarks Right hip mild tenderness Neurologic Neuro Exam: Alert, Awake, Oriented, Speech Clear, Moving All Extremities, No Focal Deficits Psychiatric Psych Exam: Appropriate Responses VTE Prophylaxis VTE Remarks Elaquis. PUD Prophylasis PUD Prophylaxis: Protonix, Carafate Assessment/Plan Problem List: (1) Pulmonary embolism (2) Sepsis (3) Acute asthma exacerbation (4) Hypertension (5) Hyperlipidemia (6) Anemia (7) Abscess of hip, right Plan: hx of infection, currently on abx (8) S/P total hip arthroplasty Assessment/Plan continue with BIPAP PRN Duonebs neublization On prednisone 20 mg PO BID. Pulmonary input noted History of DVT and PE, now with recurrent PE, on Eliquis 5 mg PO BID. appreciate cardiology and hematology input, drop in H &H, will monitor. s/p PRBC Transfusion ..stable. s/p IV Iron therapy. Checks stools for OB x 2 Negative. ID input noted.. follow CBC sinus tachycardia.. will monitor, on Cardizem Pain management, on [place] and Flexeril PRN noted with elevated blood glucose, on steroids on accuchecks AC/HS with ISS PPI and carafate for GI prophylaxis Hypokalemia resolved. Abdominal distension check abdominal X- ray have leg swelling on Lasix 40 mg IV Daily. Oral thrush on Nystatin 5 ml PO QID. Lower extremity swelling checked venous doppler of lower extremity for DVT...negative for DVT. Burning urination check UA shows UTI on on Rocephin 1 gram IV Daily. Check CBC with diff CMP and PT/ INR in AM. Condition guarded, multiple admissions, D/W patient. Problem Qualifiers (1) Pulmonary embolism: Qualified Code: I26.99 - Other pulmonary embolism without acute cor pulmonale, unspecified chronicity (2) Sepsis: Qualified Code: A41.9 - Sepsis, due to unspecified organism (3) Acute asthma exacerbation: Qualified Code: J45.901 - Asthma with acute exacerbation, unspecified asthma severity (4) Hypertension: Qualified Code: I10 - Essential hypertension (5) Hyperlipidemia: Qualified Code: E78.5 - Hyperlipidemia, unspecified hyperlipidemia type (6) Anemia: Qualified Code: D64.9 - Anemia, unspecified type (7) S/P total hip arthroplasty: Qualified Code: Z96.641 - Status post total replacement of right hip Myron Woodward MD January 10, 2017 08:21
--- NOTE | 2017-01-10 08:34 | HHI.PR ---
Subjective Remarks alert afebrile occasional wheeze LESS LE EDEMA Objective Vital Signs Date Time Temp Pulse Resp B/P Pulse Ox O2 Delivery O2 Flow Rate FiO2 01/10/17 05:34 Nasal Cannula 2.00 01/10/17 03:30 97.5 110 18 135/81 98 01/09/17 23:03 97.9 113 18 141/91 97 01/09/17 20:29 Nasal Cannula 2.00 01/09/17 20:22 110 01/09/17 19:41 97.9 115 18 126/86 96 01/09/17 16:00 97.7 115 20 130/91 97 01/09/17 15:43 97 Nasal Cannula 2.00 01/09/17 12:00 97.6 106 20 126/87 96 01/09/17 10:22 22 I/O 01/09/17 01/09/17 01/09/17 01/10/17 01/10/17 01/10/17 07:00 15:00 23:00 07:00 15:00 23:00 Intake Total 570 ml 1200 ml 960 ml 240 ml Output Total 525 ml 2300 ml 700 ml 450 ml Balance 45 ml -1100 ml 260 ml -210 ml Intake Oral 570 ml 1200 ml 960 ml 240 ml Output Urine Total 525 ml 2300 ml 700 ml 450 ml # Bowel Movements 0 2 1 0 Result Diagram: 01/09/17 0620 01/09/17 0620 Objective Remarks GENERAL: SKIN: Warm and dry. HEAD: Atraumatic. Normocephalic. EYES: Pupils equal and round. No scleral icterus. No injection or drainage. ENT: No nasal bleeding or discharge. Mucous membranes pink and moist. NECK: Trachea midline. No JVD. CARDIOVASCULAR: Regular rate and rhythm. RESPIRATORY: No accessory muscle use. scattered wheeze GASTROINTESTINAL: Abdomen soft, non-tender, nondistended. Hepatic and splenic margins not palpable. MUSCULOSKELETAL: Extremities without clubbing, cyanosis, edema lower exrtremeties more on right , redness around right knee no tenderness. No obvious deformities. NEUROLOGICAL: Awake and alert. No obvious cranial nerve deficits. Motor grossly within normal limits. Five out of 5 muscle strength in the arms and legs. Normal speech. PSYCHIATRIC: Appropriate mood and affect; insight and judgment normal. Assessment and Plan Assessment and Plan respiratory failure acute PE Asthma PLAN anticoags bronchodilator therapy increase activity Mary Hernandez MD January 10, 2017 08:34
[2017-01-10] MEDS: RESP: ALBUTEROL 2.5 MG/IPRATROPIUM 0.5 MG NEB (PRN) NEB ×2 (08:41→12:04)
--- NOTE | 2017-01-10 13:30 | HHI.FF ---
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 My clinical findings support the need for the requested home health care services because: Ltd mobility - disease progression Limited ability to care for self I certify that my clinical findings support that this patient is homebound because: Unsteady gait/balance Unsafe to leave home unassisted Myron Woodward MD January 10, 2017 13:30
[2017-01-10] MEDS: cefTRIAXone INJ 1,000 MG in SODIUM CHLORIDE 0.9% INJ 100 ML IV SCH (14:10)
[2017-01-10 14:37] LABS: AUTOMATED NEUTROPHIL # 8.8 TH/MM3 (1.8-7.7); BASOPHIL % 0.2 % (0.0-2.0); EOSINOPHIL % 0.1 % (0.0-4.0); HEMATOCRIT 36.3 % (39.0-51.0); LYMPH % 3.6 % (9.0-44.0); LYMPHOCYTE # 0.3 TH/MM3 (1.0-4.8); MEAN CELL VOLUME 78.7 FL (80.0-100.0); MEAN CORPUSCULAR HEMOGLOBIN 24.4 PG (27.0-34.0); MONO % 3.9 % (0.0-8.0); NEUT % 92.2 % (16.0-70.0); PLATELET COUNT 178 TH/MM3 (150-450); RED BLOOD COUNT 4.62 MIL/MM3 (4.50-5.90); RED CELL DISTRIBUTION WIDTH 28.8 % (11.6-17.2); WHITE BLOOD COUNT 9.6 TH/MM3 (4.0-11.0)
[2017-01-10 14:40] LABS: HEMO FLAGS AUTO DIFF
[2017-01-10] MEDS: HYDROcodone 5 MG/HOMATROPINE 1.5 MG SYRUP 5 ML CUP PO PRN (17:11)
[2017-01-10 17:15] LABS: BANDS 1 % (0-6); METAMYELOCYTES 1 % (0-1); MYELOCYTES 3 % (0-0); NEUTROPHIL # MANUAL DIFF 8.9 TH/MM3 (1.8-7.7); POLYS (SEG NEUTROPHILS) 88 % (16-70); WBC DIFF SAMPLE 100
[2017-01-10 17:16] LABS: OVALOCYTES 1+ (NORMAL); PLATELET ESTIMATE SMEAR NORMAL (NORMAL); PLATELET MORPHOLOGY NORMAL (NORMAL); SCAN/DIFF FINAL DIFF MANUAL; TEARDROP RBCS 1+ (NORMAL)
[2017-01-10] MEDS: ATORVASTATIN 20 MG TAB PO SCH (21:05)
[2017-01-10] MEDS: MONTELUKAST SODIUM 10 MG TAB PO SCH (21:05)
[2017-01-11] VITALS (8 sets, daily range): BP systolic 125–155; BP diastolic 81–102; PULSE 81–119; RESP 16–20; TEMP 97.5–98.1; O2SAT 97–98
--- NOTE | 2017-01-11 00:15 | PD.ONC.PN ---
Subjective Subjective Remarks feels much better denies any dyspnea no bleeding b/l le edema Objective Data Date Time Temp Pulse Resp B/P Pulse Ox O2 Delivery O2 Flow Rate FiO2 01/10/17 21:48 98 Nasal Cannula 2.00 01/10/17 20:00 Nasal Cannula 2.00 01/10/17 20:00 97.5 105 19 119/92 97 01/10/17 16:00 97.7 100 22 138/83 97 01/10/17 12:06 98 Nasal Cannula 2.00 01/10/17 12:00 97.5 101 20 123/83 97 01/10/17 09:18 Nasal Cannula 2.00 40 01/10/17 08:15 101 01/10/17 08:00 97.5 97 20 133/73 98 01/10/17 05:34 Nasal Cannula 2.00 01/10/17 03:30 97.5 110 18 135/81 98 Result Diagram: 01/10/17 1420 01/09/17 0620 Laboratory Results Laboratory Tests Test 01/10/17 01/10/17 05:40 14:20 Prothrombin Time 10.7 SEC Prothromb Time International 1.0 RATIO Ratio Activated Partial 23.1 SEC Thromboplast Time White Blood Count 9.6 TH/MM3 Red Blood Count 4.62 MIL/MM3 Hemoglobin 11.3 GM/DL Hematocrit 36.3 % Mean Corpuscular Volume 78.7 FL Mean Corpuscular Hemoglobin 24.4 PG Mean Corpuscular Hemoglobin 31.0 % Concent Red Cell Distribution Width 28.8 % Platelet Count 178 TH/MM3 Mean Platelet Volume 8.7 FL Neutrophils (%) (Auto) 92.2 % Lymphocytes (%) (Auto) 3.6 % Monocytes (%) (Auto) 3.9 % Eosinophils (%) (Auto) 0.1 % Basophils (%) (Auto) 0.2 % Neutrophils # (Auto) 8.8 TH/MM3 Lymphocytes # (Auto) 0.3 TH/MM3 Monocytes # (Auto) 0.4 TH/MM3 Eosinophils # (Auto) 0.0 TH/MM3 Basophils # (Auto) 0.0 TH/MM3 CBC Comment AUTO DIFF Differential Total Cells 100 Counted Neutrophils % (Manual) 88 % Band Neutrophils % 1 % Lymphocytes % 4 % Monocytes % 3 % Neutrophils # (Manual) 8.9 TH/MM3 Metamyelocytes 1 % Myelocytes 3 % Differential Comment FINAL DIFF MANUAL Platelet Estimate NORMAL Platelet Morphology Comment NORMAL Tear Drop Cells 1+ Ovalocytes 1+ Culture Results Microbiology Date/Time Procedure Status Source Growth 01/08/17 04:20 Urine Culture - Final Complete Urine Clean Catch 50-100,000 CFU/ML MIXED ELSY... Administered Medications Medications (Trade) Dose Ordered Sig/Gabi Route PRN Reason Start Time Stop Time Status Last Admin Dose Admin Docusate Sodium (Colace) 100 mg Q12H PO 12/25/16 14:45 01/10/17 12:09 Sodium Chloride (NS Flush) DAILY IVF 12/26/16 09:00 01/10/17 08:10 Heparin Sodium (Porcine) (Heparin Central Flush) DAILY IV FLUSH 12/26/16 09:00 01/10/17 08:10 Sodium Chloride (NS Flush) UNSCH PRN IVF SEE PROTOCOL 12/26/16 08:15 01/01/17 04:55 Heparin Sodium (Porcine) (Heparin Central Flush) UNSCH PRN IV FLUSH SEE PROTOCOL 12/26/16 08:15 01/09/17 06:24 Atorvastatin Calcium (Lipitor) 20 mg HS PO 12/26/16 21:00 01/10/17 21:05 Budesonide/ Formoterol Fumarate (Symbicort 160-4.5 Inh) 2 puff Q12HR INH 12/26/16 09:00 01/10/17 21:06 Diltiazem HCl (Cardizem Cd) 360 mg DAILY PO 12/26/16 09:00 01/10/17 08:09 Montelukast Sodium (Singulair) 10 mg HS PO 12/26/16 21:00 01/10/17 21:05 Sucralfate (Carafate) 1 gm TID PO 12/26/16 09:00 01/10/17 17:09 Cyclobenzaprine HCl (Flexeril) 10 mg Q8H PRN PO spasms 12/26/16 08:15 01/09/17 20:22 Pantoprazole Sodium (Protonix) 40 mg DAILY PO 12/26/16 09:00 01/10/17 08:09 Lorazepam (Ativan) 0.5 mg BID PO 12/26/16 09:00 01/10/17 21:05 Acetaminophen/ Hydrocodone Bitart ([place] 5-325 Mg) 2 tab Q4H PRN PO PAIN SCALE 5 TO 10 12/26/16 08:30 01/10/17 22:47 Hydrocodone Bit/ Homatropine Methylb (Hycodan Liq) 5 ml Q6H PRN PO COUGH 12/26/16 08:30 01/10/17 17:11 Potassium Chloride (KCl) 60 meq DAILY PO 12/27/16 11:15 01/10/17 08:09 Nystatin (Mycostatin Liq) 5 ml QID SWISH-SWAL 12/31/16 13:00 01/10/17 21:05 Folic Acid (Folate) 1 mg DAILY PO 01/02/17 09:00 01/10/17 08:09 Apixaban (Eliquis) 5 mg BID PO 01/03/17 21:00 01/10/17 21:05 Furosemide (Lasix) 40 mg DAILY PO 01/06/17 09:00 01/10/17 08:09 Prednisone 20 mg 20 mg DAILY PO 01/07/17 09:00 01/10/17 08:09 Ceftriaxone Sodium/Sodium Chloride (Rocephin Inj/NS Inj) 100 ml @ 200 mls/hr Q24H IV 01/08/17 14:00 01/10/17 14:10 Ascorbic Acid (Vitamin C) 500 mg DAILY PO 01/09/17 09:00 01/10/17 08:09 Objective Remarks GENERAL: Well-nourished, well-developed patient. NECK: Supple, trachea midline. No JVD or lymphadenopathy. LYMPHATIC: No adenopathy. CARDIOVASCULAR: Regular rate and rhythm without murmurs. RESPIRATORY: Breath sounds equal bilaterally. No accessory muscle use. GASTROINTESTINAL: Abdomen soft, non-tender, nondistended. EXTREMITIES: No cyanosis, edematous Assessment/Plan Assessment 51-year-old male with recurrent pulmonary emboli. --was on Eliquis 2.5mg BID outpatient (prophylactic dosing) h/o Reactive airway disease complicated by frequent exacerbations. Multiple intubations pneumothorax. right lower extremity deep venous thrombosis in December of 2015. Left lung pulmonary embolus December of 2015. Right lung pulmonary embolus in December of 2016. 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 Plan 1.continue Treatment dose Eliquis. Hb improving. no evidence of bleeding. no dyspnea/no chest pain 2. Microcytosis persists due to iron deficiency. Hb electrophoresis normal. Hb and microcytosis improving with iron infusions Reuben Cali MD January 11, 2017 00:15
[2017-01-11] MEDS: ACETAMINOPHEN/HYDROcodone 325 MG/5 MG TAB PO PRN ×4 (05:02→21:25)
[2017-01-11] MEDS: DOCUSATE SODIUM 100 MG CAP PO SCH ×2 (05:02→14:07)
[2017-01-11] MEDS: HYDROcodone 5 MG/HOMATROPINE 1.5 MG SYRUP 5 ML CUP PO PRN (05:18)
[2017-01-11] MEDS: INSULIN ASPART SUPPLEMENTAL SCALE SQ SCH ×4 (06:06→21:25)
[2017-01-11 06:39] LABS: APTT (PATIENT) 22.2 SEC (24.3-30.1); INTERNATIONAL NORMALIZED RATIO 0.9 RATIO; PROTHROMBIN TIME - PATIENT 10.3 SEC (9.8-11.6)
[2017-01-11 07:11] LABS: AUTOMATED NEUTROPHIL # 5.9 TH/MM3 (1.8-7.7); BASOPHIL % 0.2 % (0.0-2.0); EOSINOPHIL # 0.1 TH/MM3 (0-0.4); HEMATOCRIT 33.3 % (39.0-51.0); LYMPH % 16.7 % (9.0-44.0); LYMPHOCYTE # 1.3 TH/MM3 (1.0-4.8); MEAN CELL VOLUME 78.2 FL (80.0-100.0); MEAN CORPUSCULAR HEMOGLOBIN 24.9 PG (27.0-34.0); MEAN CORPUSCULAR HGB CONC 31.8 % (32.0-36.0); NEUT % 74.1 % (16.0-70.0); PLATELET COUNT 169 TH/MM3 (150-450); RED BLOOD COUNT 4.26 MIL/MM3 (4.50-5.90); RED CELL DISTRIBUTION WIDTH 29.5 % (11.6-17.2); WHITE BLOOD COUNT 7.9 TH/MM3 (4.0-11.0)
[2017-01-11 07:14] LABS: ALKALINE PHOSPHATASE 212 U/L (45-117); ALT (GPT) 84 U/L (12-78); ANION GAP 10 MEQ/L (5-15); AST (GOT) 31 U/L (15-37); BICARBONATE 28.1 MEQ/L (21.0-32.0); BLOOD UREA NITROGEN 11 MG/DL (7-18); CHLORIDE 100 MEQ/L (98-107); GLOMERULAR FILTRATION RATE 102 ML/MIN (>89); POTASSIUM 3.5 MEQ/L (3.5-5.1); SODIUM (NA) 138 MEQ/L (136-145); TOTAL BILIRUBIN ADULT 0.3 MG/DL (0.2-1.0)
[2017-01-11 07:21] LABS: HEMO FLAGS AUTO DIFF
[2017-01-11] MEDS: RESP: ALBUTEROL 2.5 MG/IPRATROPIUM 0.5 MG NEB (PRN) NEB ×2 (08:40→15:45)
[2017-01-11] MEDS: predniSONE 20 MG TAB PO SCH (09:04)
[2017-01-11] MEDS: FUROSEMIDE 40 MG TAB PO SCH (09:04)
[2017-01-11] MEDS: SUCRALFATE 1 GM TAB PO SCH ×3 (09:04→17:06)
[2017-01-11] MEDS: NYSTATIN SUSP 500,000 U/5 ML CUP SWISH-SWAL SCH ×4 (09:04→21:24)
[2017-01-11] MEDS: FOLIC ACID 1 MG TAB PO SCH (09:04)
[2017-01-11] MEDS: PANTOPRAZOLE SOD 40 MG DELAYED RELEASE TAB PO SCH (09:04)
[2017-01-11] MEDS: LORazepam 0.5 MG TAB PO SCH ×2 (09:04→21:24)
[2017-01-11] MEDS: DILTIAZEM-CD 180 MG CAP ER PO SCH (09:04)
[2017-01-11] MEDS: POTASSIUM CHLORIDE 10 MEQ CONTROLLED RELEASE TAB PO SCH (09:05)
[2017-01-11] MEDS: SODIUM CHLORIDE 0.9% FLUSH 10 ML FLUSH IVF SCH (09:05)
[2017-01-11] MEDS: APIXABAN 5 MG TABLET PO SCH ×2 (09:05→21:24)
[2017-01-11] MEDS: ASCORBIC ACID 500 MG TAB PO SCH (09:05)
--- NOTE | 2017-01-11 09:14 | HHI.PR ---
Subjective History of Present Illness Patient have SOB cough and sever wheezing Have Pulmonary embolism... on Elaquis 5 mg PO BID . c/o oral thrush on Nystatin 5 ml PO QID.on prednisone 20 mg PO Daily. have burning urination check UA shows UTI on Rocephin 1 gram IV Daily. getting better leg swelling better. Review of Systems Constitutional Constitutional: Fatigue, Weakness Pulmonary Respiratory: Coughing, Shortness of Breath, Wheezing Genitourinary Genitourinary: Urgency, Dysuria, Burning Musculoskeletal MS Remarks Right Hip Pain. Vitals/Results Intake & Output 01/10/17 01/10/17 01/11/17 15:00 23:00 07:00 Intake Total 840 ml 420 ml 180 ml Output Total 1425 ml 625 ml 650 ml Balance -585 ml -205 ml -470 ml Intake Oral 840 ml 420 ml 180 ml Output Urine Total 1425 ml 625 ml 650 ml # Bowel Movements 1 1 Vital Signs Vital Signs Date Time Temp Pulse Resp B/P Pulse Ox O2 Delivery O2 Flow Rate FiO2 01/11/17 08:42 98 Nasal Cannula 2.00 01/11/17 08:00 97.5 89 18 144/88 97 01/11/17 04:00 98.1 98 16 139/81 98 01/11/17 00:00 98.0 106 18 155/99 97 01/10/17 21:48 98 Nasal Cannula 2.00 01/10/17 20:00 Nasal Cannula 2.00 01/10/17 20:00 103 01/10/17 20:00 97.5 105 19 119/92 97 01/10/17 16:00 97.7 100 22 138/83 97 01/10/17 12:06 98 Nasal Cannula 2.00 01/10/17 12:00 97.5 101 20 123/83 97 01/10/17 09:18 Nasal Cannula 2.00 40 CBC/BMP: 01/11/17 0600 01/11/17 0615 Lab Results Laboratory Tests Test 01/10/17 01/11/17 01/11/17 14:20 06:00 06:15 White Blood Count 9.6 TH/MM3 7.9 TH/MM3 Red Blood Count 4.62 MIL/MM3 4.26 MIL/MM3 Hemoglobin 11.3 GM/DL 10.6 GM/DL Hematocrit 36.3 % 33.3 % Mean Corpuscular Volume 78.7 FL 78.2 FL Mean Corpuscular Hemoglobin 24.4 PG 24.9 PG Mean Corpuscular Hemoglobin 31.0 % 31.8 % Concent Red Cell Distribution Width 28.8 % 29.5 % Platelet Count 178 TH/MM3 169 TH/MM3 Mean Platelet Volume 8.7 FL 7.4 FL Neutrophils (%) (Auto) 92.2 % 74.1 % Lymphocytes (%) (Auto) 3.6 % 16.7 % Monocytes (%) (Auto) 3.9 % 8.0 % Eosinophils (%) (Auto) 0.1 % 1.0 % Basophils (%) (Auto) 0.2 % 0.2 % Neutrophils # (Auto) 8.8 TH/MM3 5.9 TH/MM3 Lymphocytes # (Auto) 0.3 TH/MM3 1.3 TH/MM3 Monocytes # (Auto) 0.4 TH/MM3 0.6 TH/MM3 Eosinophils # (Auto) 0.0 TH/MM3 0.1 TH/MM3 Basophils # (Auto) 0.0 TH/MM3 0.0 TH/MM3 CBC Comment AUTO DIFF AUTO DIFF Differential Total Cells 100 Counted Neutrophils % (Manual) 88 % Band Neutrophils % 1 % Lymphocytes % 4 % Monocytes % 3 % Neutrophils # (Manual) 8.9 TH/MM3 Metamyelocytes 1 % Myelocytes 3 % Differential Comment FINAL DIFF MANUAL Platelet Estimate NORMAL Platelet Morphology Comment NORMAL Tear Drop Cells 1+ Ovalocytes 1+ Prothrombin Time 10.3 SEC Prothromb Time International 0.9 RATIO Ratio Activated Partial 22.2 SEC Thromboplast Time Sodium Level 138 MEQ/L Potassium Level 3.5 MEQ/L Chloride Level 100 MEQ/L Carbon Dioxide Level 28.1 MEQ/L Anion Gap 10 MEQ/L Blood Urea Nitrogen 11 MG/DL Creatinine 0.80 MG/DL Estimat Glomerular Filtration 102 ML/MIN Rate Random Glucose 161 MG/DL Calcium Level 8.6 MG/DL Total Bilirubin 0.3 MG/DL Aspartate Amino Transf 31 U/L (AST/SGOT) Alanine Aminotransferase 84 U/L (ALT/SGPT) Alkaline Phosphatase 212 U/L Total Protein 5.7 GM/DL Albumin 3.2 GM/DL Physical Exam General General Appearance: Well Developed, Well Nourished, Comfortable, Anxious Eyes Eye Exam: Pupils Equal, Pupils Reactive, Sclera White, Extraocular Movement Intact Ears & Nose Ears & Nose Exam: Nasal Mucosa [place] Throat Throat Exam: Oral Mucosa [place] & Moist, Oral Pharynx Normal Neck Neck Exam: Neck Supple, Trachea Midline Pulmonary Resp Exam: Diminished Breath Sounds Resp Remarks Bilateral wheezing. Cardiology CV Exam: Good Perfusion, Tachycardia Gastrointestinal/Abdomen GI Exam: Soft, Non-Tender, Bowel Sounds Present, Distended GI Remarks distended abdomen. Musculoskeletal MS Exam: Joints Intact Integumentary Skin Exam: Warm, Dry Extremeties Extremities Exam: Pedal Pulses Palpable, Moderate Edema, Pitting Edema Extremeties Remarks Right hip mild tenderness Neurologic Neuro Exam: Alert, Awake, Oriented, Speech Clear, Moving All Extremities, No Focal Deficits Psychiatric Psych Exam: Appropriate Responses VTE Prophylaxis VTE Remarks Elaquis. PUD Prophylasis PUD Prophylaxis: Protonix, Carafate Assessment/Plan Problem List: (1) Pulmonary embolism (2) Sepsis (3) Acute asthma exacerbation (4) Hypertension (5) Hyperlipidemia (6) Anemia (7) Abscess of hip, right Plan: hx of infection, currently on abx (8) S/P total hip arthroplasty Assessment/Plan continue with BIPAP PRN Duonebs neublization On prednisone 20 mg PO BID. Pulmonary input noted History of DVT and PE, now with recurrent PE, on Eliquis 5 mg PO BID. appreciate cardiology and hematology input, drop in H &H, will monitor. s/p PRBC Transfusion ..stable. s/p IV Iron therapy. Checks stools for OB x 2 Negative. ID input noted.. follow CBC sinus tachycardia.. will monitor, on Cardizem Pain management, on [place] and Flexeril PRN elevated blood glucose, on steroids on accuchecks AC/HS with ISS PPI and carafate for GI prophylaxis Hypokalemia resolved. Abdominal distension check abdominal X- ray have leg swelling on Lasix 40 mg IV Daily. Oral thrush on Nystatin 5 ml PO QID. Lower extremity swelling checked venous doppler of lower extremity for DVT...negative for DVT. Burning urination check UA shows UTI on on Rocephin 1 gram IV Daily. Check CBC with diff CMP in AM. Condition guarded, multiple admissions, D/W patient. Discussed Condition with: Patient Problem Qualifiers (1) Pulmonary embolism: Qualified Code: I26.99 - Other pulmonary embolism without acute cor pulmonale, unspecified chronicity (2) Sepsis: Qualified Code: A41.9 - Sepsis, due to unspecified organism (3) Acute asthma exacerbation: Qualified Code: J45.901 - Asthma with acute exacerbation, unspecified asthma severity (4) Hypertension: Qualified Code: I10 - Essential hypertension (5) Hyperlipidemia: Qualified Code: E78.5 - Hyperlipidemia, unspecified hyperlipidemia type (6) Anemia: Qualified Code: D64.9 - Anemia, unspecified type (7) S/P total hip arthroplasty: Qualified Code: Z96.641 - Status post total replacement of right hip Myron Woodward MD January 11, 2017 09:14
[2017-01-11] MEDS: BUDESONIDE-FORMOTEROL 160/4.5 MCG INHALER INH SCH ×2 (09:23→21:26)
[2017-01-11 09:46] LABS: BANDS 4 % (0-6); METAMYELOCYTES 4 % (0-1); MYELOCYTES 3 % (0-0); NEUTROPHIL # MANUAL DIFF 6.8 TH/MM3 (1.8-7.7); OVALOCYTES 1+ (NORMAL); PLATELET ESTIMATE SMEAR NORMAL (NORMAL); PLATELET MORPHOLOGY NORMAL (NORMAL); POLYS (SEG NEUTROPHILS) 75 % (16-70); SCAN/DIFF FINAL DIFF MANUAL; WBC DIFF SAMPLE 100
[2017-01-11] MEDS: cefTRIAXone INJ 1,000 MG in SODIUM CHLORIDE 0.9% INJ 100 ML IV SCH (14:07)
[2017-01-11] MEDS: ATORVASTATIN 20 MG TAB PO SCH (21:24)
[2017-01-11] MEDS: MONTELUKAST SODIUM 10 MG TAB PO SCH (21:24)
[2017-01-12] VITALS (8 sets, daily range): BP systolic 126–152; BP diastolic 82–95; PULSE 98–120; RESP 16–20; TEMP 97.2–98; O2SAT 95–99
[2017-01-12] MEDS: DOCUSATE SODIUM 100 MG CAP PO SCH ×2 (02:45→14:42)
[2017-01-12] MEDS: INSULIN ASPART SUPPLEMENTAL SCALE SQ SCH ×4 (06:40→21:18)
[2017-01-12] MEDS: ACETAMINOPHEN/HYDROcodone 325 MG/5 MG TAB PO PRN ×4 (06:49→20:27)
[2017-01-12 07:33] LABS: AUTOMATED NEUTROPHIL # 6.5 TH/MM3 (1.8-7.7); BASOPHIL # 0.1 TH/MM3 (0-0.2); BASOPHIL % 0.8 % (0.0-2.0); EOSINOPHIL # 0.1 TH/MM3 (0-0.4); EOSINOPHIL % 0.7 % (0.0-4.0); HEMATOCRIT 32.8 % (39.0-51.0); LYMPH % 14.1 % (9.0-44.0); LYMPHOCYTE # 1.2 TH/MM3 (1.0-4.8); MEAN CELL VOLUME 78.1 FL (80.0-100.0); MONO % 7.4 % (0.0-8.0); PLATELET COUNT 169 TH/MM3 (150-450); RED BLOOD COUNT 4.19 MIL/MM3 (4.50-5.90); RED CELL DISTRIBUTION WIDTH 30.1 % (11.6-17.2); WHITE BLOOD COUNT 8.5 TH/MM3 (4.0-11.0)
[2017-01-12 07:43] LABS: PROTHROMBIN TIME - PATIENT 10.7 SEC (9.8-11.6)
[2017-01-12 07:45] LABS: HEMO FLAGS AUTO DIFF
[2017-01-12 07:49] LABS: APTT (PATIENT) 22.6 SEC (24.3-30.1)
[2017-01-12 08:03] LABS: ALKALINE PHOSPHATASE 209 U/L (45-117); ALT (GPT) 82 U/L (12-78); ANION GAP 9 MEQ/L (5-15); AST (GOT) 26 U/L (15-37); BICARBONATE 30.2 MEQ/L (21.0-32.0); BLOOD UREA NITROGEN 14 MG/DL (7-18); CHLORIDE 101 MEQ/L (98-107); GLOMERULAR FILTRATION RATE 102 ML/MIN (>89); POTASSIUM 3.3 MEQ/L (3.5-5.1); SODIUM (NA) 140 MEQ/L (136-145); TOTAL BILIRUBIN ADULT 0.3 MG/DL (0.2-1.0)
[2017-01-12] MEDS: SODIUM CHLORIDE 0.9% FLUSH 10 ML FLUSH IVF SCH (09:00)
[2017-01-12] MEDS: SUCRALFATE 1 GM TAB PO SCH ×3 (09:10→17:53)
[2017-01-12] MEDS: POTASSIUM CHLORIDE 10 MEQ CONTROLLED RELEASE TAB PO SCH (09:10)
[2017-01-12] MEDS: predniSONE 20 MG TAB PO SCH (09:11)
[2017-01-12] MEDS: PANTOPRAZOLE SOD 40 MG DELAYED RELEASE TAB PO SCH (09:11)
[2017-01-12] MEDS: DILTIAZEM-CD 180 MG CAP ER PO SCH (09:11)
[2017-01-12] MEDS: FOLIC ACID 1 MG TAB PO SCH (09:11)
[2017-01-12] MEDS: FUROSEMIDE 40 MG TAB PO SCH (09:11)
[2017-01-12] MEDS: ASCORBIC ACID 500 MG TAB PO SCH (09:11)
[2017-01-12] MEDS: NYSTATIN SUSP 500,000 U/5 ML CUP SWISH-SWAL SCH ×4 (09:11→21:17)
[2017-01-12] MEDS: LORazepam 0.5 MG TAB PO SCH ×2 (09:11→21:17)
[2017-01-12] MEDS: APIXABAN 5 MG TABLET PO SCH ×2 (09:11→21:17)
[2017-01-12] MEDS: BUDESONIDE-FORMOTEROL 160/4.5 MCG INHALER INH SCH ×2 (09:12→21:18)
[2017-01-12] MEDS: HYDROcodone 5 MG/HOMATROPINE 1.5 MG SYRUP 5 ML CUP PO PRN ×2 (09:19→22:32)
--- NOTE | 2017-01-12 09:25 | HHI.PR ---
Subjective History of Present Illness Patient have SOB cough and sever wheezing Have Pulmonary embolism... on Elaquis 5 mg PO BID . c/o oral thrush on Nystatin 5 ml PO QID.on prednisone 20 mg PO Daily. have burning urination check UA shows UTI on Rocephin 1 gram IV Daily. getting better leg swelling better. DC Plan tomorrow. Review of Systems Constitutional Constitutional: Fatigue, Weakness Pulmonary Respiratory: Coughing, Shortness of Breath, Wheezing Genitourinary Genitourinary: Urgency, Dysuria, Burning Musculoskeletal MS Remarks Right Hip Pain. Vitals/Results Intake & Output 01/11/17 01/11/17 01/12/17 15:00 23:00 07:00 Intake Total 960 ml 480 ml 480 ml Output Total 1500 ml 300 ml 700 ml Balance -540 ml 180 ml -220 ml Intake Oral 960 ml 480 ml 480 ml Output Urine Total 1500 ml 300 ml 700 ml # Bowel Movements 2 1 0 Vital Signs Vital Signs Date Time Temp Pulse Resp B/P Pulse Ox O2 Delivery O2 Flow Rate FiO2 01/12/17 08:00 97.4 100 16 151/90 96 01/12/17 04:00 97.6 98 18 137/89 98 01/12/17 00:00 97.4 110 20 147/84 99 01/11/17 23:21 Nasal Cannula 2.00 01/11/17 20:00 97.6 118 20 145/102 98 01/11/17 20:00 98 Nasal Cannula 2.00 01/11/17 16:00 98.1 119 18 125/90 97 01/11/17 12:00 97.7 109 18 129/90 97 01/11/17 10:11 20 CBC/BMP: 01/12/17 0648 01/12/17 0648 Lab Results Laboratory Tests Test 01/12/17 06:48 White Blood Count 8.5 TH/MM3 Red Blood Count 4.19 MIL/MM3 Hemoglobin 10.5 GM/DL Hematocrit 32.8 % Mean Corpuscular Volume 78.1 FL Mean Corpuscular Hemoglobin 25.0 PG Mean Corpuscular Hemoglobin 32.0 % Concent Red Cell Distribution Width 30.1 % Platelet Count 169 TH/MM3 Mean Platelet Volume 7.4 FL Neutrophils (%) (Auto) 77.0 % Lymphocytes (%) (Auto) 14.1 % Monocytes (%) (Auto) 7.4 % Eosinophils (%) (Auto) 0.7 % Basophils (%) (Auto) 0.8 % Neutrophils # (Auto) 6.5 TH/MM3 Lymphocytes # (Auto) 1.2 TH/MM3 Monocytes # (Auto) 0.6 TH/MM3 Eosinophils # (Auto) 0.1 TH/MM3 Basophils # (Auto) 0.1 TH/MM3 CBC Comment AUTO DIFF Prothrombin Time 10.7 SEC Prothromb Time International 1.0 RATIO Ratio Activated Partial 22.6 SEC Thromboplast Time Sodium Level 140 MEQ/L Potassium Level 3.3 MEQ/L Chloride Level 101 MEQ/L Carbon Dioxide Level 30.2 MEQ/L Anion Gap 9 MEQ/L Blood Urea Nitrogen 14 MG/DL Creatinine 0.80 MG/DL Estimat Glomerular Filtration 102 ML/MIN Rate Random Glucose 128 MG/DL Calcium Level 8.5 MG/DL Total Bilirubin 0.3 MG/DL Aspartate Amino Transf 26 U/L (AST/SGOT) Alanine Aminotransferase 82 U/L (ALT/SGPT) Alkaline Phosphatase 209 U/L Total Protein 5.6 GM/DL Albumin 3.1 GM/DL Physical Exam General General Appearance: Well Developed, Well Nourished, Comfortable, Anxious Eyes Eye Exam: Pupils Equal, Pupils Reactive, Sclera White, Extraocular Movement Intact Ears & Nose Ears & Nose Exam: Nasal Mucosa [place] Throat Throat Exam: Oral Mucosa [place] & Moist, Oral Pharynx Normal Neck Neck Exam: Neck Supple, Trachea Midline Pulmonary Resp Exam: Diminished Breath Sounds Resp Remarks Bilateral wheezing. Cardiology CV Exam: Good Perfusion, Tachycardia Gastrointestinal/Abdomen GI Exam: Soft, Non-Tender, Bowel Sounds Present, Distended GI Remarks distended abdomen. Musculoskeletal MS Exam: Joints Intact Integumentary Skin Exam: Warm, Dry Extremeties Extremities Exam: Pedal Pulses Palpable, Moderate Edema, Pitting Edema Extremeties Remarks Right hip mild tenderness Neurologic Neuro Exam: Alert, Awake, Oriented, Speech Clear, Moving All Extremities, No Focal Deficits Psychiatric Psych Exam: Appropriate Responses VTE Prophylaxis VTE Remarks Elaquis. PUD Prophylasis PUD Prophylaxis: Protonix, Carafate Assessment/Plan Problem List: (1) Pulmonary embolism (2) Sepsis (3) Acute asthma exacerbation (4) Hypertension (5) Hyperlipidemia (6) Anemia (7) Abscess of hip, right Plan: hx of infection, currently on abx (8) S/P total hip arthroplasty Assessment/Plan continue with BIPAP PRN Duonebs neublization On prednisone 20 mg PO BID. Pulmonary input noted History of DVT and PE, now with recurrent PE, on Eliquis 5 mg PO BID. appreciate cardiology and hematology input, drop in H &H, will monitor. s/p PRBC Transfusion ..stable. s/p IV Iron therapy. Checks stools for OB x 2 Negative. ID input noted.. follow CBC sinus tachycardia.. will monitor, on Cardizem Pain management, on [place] and Flexeril PRN elevated blood glucose, on steroids on accuchecks AC/HS with ISS PPI and carafate for GI prophylaxis Hypokalemia resolved. Abdominal distension check abdominal X- ray have leg swelling on Lasix 40 mg IV Daily. Oral thrush on Nystatin 5 ml PO QID. Lower extremity swelling checked venous doppler of lower extremity for DVT...negative for DVT. Burning urination check UA shows UTI on on Rocephin 1 gram IV Daily. Check CBC with diff CMP in AM. Condition guarded, multiple admissions, D/W patient. DC Plan tomorrow. Discussed Condition with: Patient Problem Qualifiers (1) Pulmonary embolism: Qualified Code: I26.99 - Other pulmonary embolism without acute cor pulmonale, unspecified chronicity (2) Sepsis: Qualified Code: A41.9 - Sepsis, due to unspecified organism (3) Acute asthma exacerbation: Qualified Code: J45.901 - Asthma with acute exacerbation, unspecified asthma severity (4) Hypertension: Qualified Code: I10 - Essential hypertension (5) Hyperlipidemia: Qualified Code: E78.5 - Hyperlipidemia, unspecified hyperlipidemia type (6) Anemia: Qualified Code: D64.9 - Anemia, unspecified type (7) S/P total hip arthroplasty: Qualified Code: Z96.641 - Status post total replacement of right hip Myron Woodward MD January 12, 2017 09:25
[2017-01-12 10:58] LABS: BANDS 2 % (0-6); EOSINOPHILS 1 % (0-4); METAMYELOCYTES 1 % (0-1); MYELOCYTES 4 % (0-0); NEUTROPHIL # MANUAL DIFF 7.1 TH/MM3 (1.8-7.7); POLYS (SEG NEUTROPHILS) 75 % (16-70); PROMYELOCYTES 1 % (0-0); WBC DIFF SAMPLE 100
[2017-01-12 11:00] LABS: OVALOCYTES 1+ (NORMAL); PLATELET ESTIMATE SMEAR NORMAL (NORMAL); PLATELET MORPHOLOGY NORMAL (NORMAL); SCAN/DIFF FINAL DIFF MANUAL
[2017-01-12] MEDS: RESP: ALBUTEROL 2.5 MG/IPRATROPIUM 0.5 MG NEB (PRN) NEB ×2 (11:48→15:40)
[2017-01-12] MEDS ORDERED: CEFT500T3 PO (12:25)
[2017-01-12] MEDS ORDERED: CYCL1TAB29 PO (12:25)
[2017-01-12] MEDS ORDERED: APIX5TAB PO (12:25)
[2017-01-12] MEDS: cefTRIAXone INJ 1,000 MG in SODIUM CHLORIDE 0.9% INJ 100 ML IV SCH (14:43)
[2017-01-12] MEDS: ATORVASTATIN 20 MG TAB PO SCH (21:17)
[2017-01-12] MEDS: MONTELUKAST SODIUM 10 MG TAB PO SCH (21:17)
[2017-01-13] VITALS: BP 145/92; PULSE 102; RESP 18; TEMP 97.7; O2SAT 98
[2017-01-13] MEDS: ACETAMINOPHEN/HYDROcodone 325 MG/5 MG TAB PO PRN ×2 (03:05→06:51)
[2017-01-13] MEDS: DOCUSATE SODIUM 100 MG CAP PO SCH (03:05)
[2017-01-13 04:00] VITALS: BP 151/93; PULSE 88; RESP 18; TEMP 97.7; O2SAT 99
[2017-01-13] MEDS: RESP: ALBUTEROL 2.5 MG/IPRATROPIUM 0.5 MG NEB (PRN) NEB ×2 (04:54→08:21)
[2017-01-13 05:21] LABS: AUTOMATED NEUTROPHIL # 6.1 TH/MM3 (1.8-7.7); BASOPHIL # 0.1 TH/MM3 (0-0.2); BASOPHIL % 0.8 % (0.0-2.0); EOSINOPHIL # 0.1 TH/MM3 (0-0.4); EOSINOPHIL % 0.7 % (0.0-4.0); HEMATOCRIT 33.6 % (39.0-51.0); LYMPH % 18.9 % (9.0-44.0); LYMPHOCYTE # 1.6 TH/MM3 (1.0-4.8); MEAN CELL VOLUME 78.6 FL (80.0-100.0); MEAN CORPUSCULAR HEMOGLOBIN 25.1 PG (27.0-34.0); MEAN CORPUSCULAR HGB CONC 31.9 % (32.0-36.0); NEUT % 72.6 % (16.0-70.0); PLATELET COUNT 163 TH/MM3 (150-450); RED BLOOD COUNT 4.27 MIL/MM3 (4.50-5.90); RED CELL DISTRIBUTION WIDTH 30.7 % (11.6-17.2); WHITE BLOOD COUNT 8.4 TH/MM3 (4.0-11.0)
[2017-01-13 05:31] LABS: APTT (PATIENT) 21.1 SEC (24.3-30.1); INTERNATIONAL NORMALIZED RATIO 0.9 RATIO; PROTHROMBIN TIME - PATIENT 10.4 SEC (9.8-11.6)
[2017-01-13 05:32] LABS: HEMO FLAGS AUTO DIFF
[2017-01-13 05:40] LABS: ANION GAP 8 MEQ/L (5-15); AST (GOT) 24 U/L (15-37); BICARBONATE 31.3 MEQ/L (21.0-32.0); BLOOD UREA NITROGEN 11 MG/DL (7-18); CHLORIDE 100 MEQ/L (98-107); GLOMERULAR FILTRATION RATE 117 ML/MIN (>89); POTASSIUM 3.5 MEQ/L (3.5-5.1); SODIUM (NA) 139 MEQ/L (136-145)
[2017-01-13 05:43] LABS: ALKALINE PHOSPHATASE 215 U/L (45-117); ALT (GPT) 78 U/L (12-78); TOTAL BILIRUBIN ADULT 0.3 MG/DL (0.2-1.0)
[2017-01-13] MEDS: INSULIN ASPART SUPPLEMENTAL SCALE SQ SCH ×2 (07:00→11:18)
[2017-01-13 07:44] VITALS: PULSE 95
--- NOTE | 2017-01-13 07:55 | HHI.PR ---
Subjective History of Present Illness Patient have SOB cough and sever wheezing Have Pulmonary embolism... on Elaquis 5 mg PO BID . c/o oral thrush on Nystatin 5 ml PO QID.on prednisone 20 mg PO Daily. have burning urination check UA shows UTI on Rocephin 1 gram IV Daily. getting better leg swelling better. OK to DC home today. Review of Systems Constitutional Constitutional: Fatigue, Weakness Pulmonary Respiratory: Coughing, Shortness of Breath, Wheezing Genitourinary Genitourinary: Urgency, Dysuria, Burning Musculoskeletal MS Remarks Right Hip Pain. Vitals/Results Intake & Output 01/12/17 01/12/17 01/13/17 15:00 23:00 07:00 Intake Total 960 ml 720 ml 720 ml Output Total 1650 ml 900 ml 1250 ml Balance -690 ml -180 ml -530 ml Intake Oral 960 ml 720 ml 720 ml Output Urine Total 1650 ml 900 ml 1250 ml # Bowel Movements 1 Vital Signs Vital Signs Date Time Temp Pulse Resp B/P Pulse Ox O2 Delivery O2 Flow Rate FiO2 01/13/17 04:00 97.7 88 18 151/93 99 01/13/17 00:00 97.7 102 18 145/92 98 01/12/17 20:00 97.8 111 20 152/95 97 01/12/17 19:26 Nasal Cannula 2.00 01/12/17 16:00 98.0 120 16 126/82 97 01/12/17 12:33 20 01/12/17 12:00 97.2 115 16 136/87 95 01/12/17 11:48 98 Nasal Cannula 2.00 01/12/17 08:01 100 01/12/17 08:00 97.4 100 16 151/90 96 01/12/17 08:00 Nasal Cannula 2.00 CBC/BMP: 01/13/17 0500 01/13/17 0500 Lab Results Laboratory Tests Test 01/13/17 05:00 White Blood Count 8.4 TH/MM3 Red Blood Count 4.27 MIL/MM3 Hemoglobin 10.7 GM/DL Hematocrit 33.6 % Mean Corpuscular Volume 78.6 FL Mean Corpuscular Hemoglobin 25.1 PG Mean Corpuscular Hemoglobin 31.9 % Concent Red Cell Distribution Width 30.7 % Platelet Count 163 TH/MM3 Mean Platelet Volume 6.7 FL Neutrophils (%) (Auto) 72.6 % Lymphocytes (%) (Auto) 18.9 % Monocytes (%) (Auto) 7.0 % Eosinophils (%) (Auto) 0.7 % Basophils (%) (Auto) 0.8 % Neutrophils # (Auto) 6.1 TH/MM3 Lymphocytes # (Auto) 1.6 TH/MM3 Monocytes # (Auto) 0.6 TH/MM3 Eosinophils # (Auto) 0.1 TH/MM3 Basophils # (Auto) 0.1 TH/MM3 CBC Comment AUTO DIFF Prothrombin Time 10.4 SEC Prothromb Time International 0.9 RATIO Ratio Activated Partial 21.1 SEC Thromboplast Time Sodium Level 139 MEQ/L Potassium Level 3.5 MEQ/L Chloride Level 100 MEQ/L Carbon Dioxide Level 31.3 MEQ/L Anion Gap 8 MEQ/L Blood Urea Nitrogen 11 MG/DL Creatinine 0.71 MG/DL Estimat Glomerular Filtration 117 ML/MIN Rate Random Glucose 139 MG/DL Calcium Level 8.5 MG/DL Total Bilirubin 0.3 MG/DL Aspartate Amino Transf 24 U/L (AST/SGOT) Alanine Aminotransferase 78 U/L (ALT/SGPT) Alkaline Phosphatase 215 U/L Total Protein 5.9 GM/DL Albumin 3.3 GM/DL Physical Exam General General Appearance: Well Developed, Well Nourished, Comfortable, Anxious Eyes Eye Exam: Pupils Equal, Pupils Reactive, Sclera White, Extraocular Movement Intact Ears & Nose Ears & Nose Exam: Nasal Mucosa [place] Throat Throat Exam: Oral Mucosa [place] & Moist, Oral Pharynx Normal Neck Neck Exam: Neck Supple, Trachea Midline Pulmonary Resp Exam: Diminished Breath Sounds Resp Remarks Bilateral wheezing. Cardiology CV Exam: Good Perfusion, Tachycardia Gastrointestinal/Abdomen GI Exam: Soft, Non-Tender, Bowel Sounds Present, Distended GI Remarks distended abdomen. Musculoskeletal MS Exam: Joints Intact Integumentary Skin Exam: Warm, Dry Extremeties Extremities Exam: Pedal Pulses Palpable, Moderate Edema, Pitting Edema Extremeties Remarks Right hip mild tenderness Neurologic Neuro Exam: Alert, Awake, Oriented, Speech Clear, Moving All Extremities, No Focal Deficits Psychiatric Psych Exam: Appropriate Responses VTE Prophylaxis VTE Remarks Elaquis. PUD Prophylasis PUD Prophylaxis: Protonix, Carafate Assessment/Plan Problem List: (1) Pulmonary embolism (2) Sepsis (3) Acute asthma exacerbation (4) Hypertension (5) Hyperlipidemia (6) Anemia (7) Abscess of hip, right Plan: hx of infection, currently on abx (8) S/P total hip arthroplasty Assessment/Plan continue with BIPAP PRN Duonebs neublization On prednisone 20 mg PO BID. Pulmonary input noted History of DVT and PE, now with recurrent PE, on Eliquis 5 mg PO BID. appreciate cardiology and hematology input, drop in H &H, will monitor. s/p PRBC Transfusion ..stable. s/p IV Iron therapy. Checks stools for OB x 2 Negative. ID input noted.. follow CBC sinus tachycardia.. will monitor, on Cardizem Pain management, on [place] and Flexeril PRN elevated blood glucose, on steroids on accuchecks AC/HS with ISS PPI and carafate for GI prophylaxis Hypokalemia resolved. Abdominal distension check abdominal X- ray have leg swelling on Lasix 40 mg IV Daily. Oral thrush on Nystatin 5 ml PO QID. Lower extremity swelling checked venous doppler of lower extremity for DVT...negative for DVT. Burning urination check UA shows UTI on on Rocephin 1 gram IV Daily. Check CBC with diff CMP in AM. Condition guarded, multiple admissions, D/W patient. ok to dc home today. f/u with PCP/ cardiology/pulmonary/oncology/orthopedic 1 -2 weeks. Discussed Condition with: Patient Problem Qualifiers (1) Pulmonary embolism: Qualified Code: I26.99 - Other pulmonary embolism without acute cor pulmonale, unspecified chronicity (2) Sepsis: Qualified Code: A41.9 - Sepsis, due to unspecified organism (3) Acute asthma exacerbation: Qualified Code: J45.901 - Asthma with acute exacerbation, unspecified asthma severity (4) Hypertension: Qualified Code: I10 - Essential hypertension (5) Hyperlipidemia: Qualified Code: E78.5 - Hyperlipidemia, unspecified hyperlipidemia type (6) Anemia: Qualified Code: D64.9 - Anemia, unspecified type (7) S/P total hip arthroplasty: Qualified Code: Z96.641 - Status post total replacement of right hip Myron Woodward MD January 13, 2017 07:55
[2017-01-13 08:00] VITALS: BP 136/87; PULSE 94; RESP 18; TEMP 97.5; O2SAT 99
[2017-01-13 08:13] LABS: BANDS 2 % (0-6); BASOPHILS 2 % (0-2); EOSINOPHILS 2 % (0-4); METAMYELOCYTES 3 % (0-1); MYELOCYTES 1 % (0-0); POLYS (SEG NEUTROPHILS) 65 % (16-70); WBC DIFF SAMPLE 100
[2017-01-13 08:14] LABS: PLATELET ESTIMATE SMEAR NORMAL (NORMAL); PLATELET MORPHOLOGY NORMAL (NORMAL); SCAN/DIFF FINAL DIFF MANUAL
[2017-01-13 08:23] VITALS: O2SAT 99
[2017-01-13] MEDS: DILTIAZEM-CD 180 MG CAP ER PO SCH (08:52)
[2017-01-13] MEDS: NYSTATIN SUSP 500,000 U/5 ML CUP SWISH-SWAL SCH ×2 (08:53→12:06)
[2017-01-13] MEDS: APIXABAN 5 MG TABLET PO SCH (08:53)
[2017-01-13] MEDS: POTASSIUM CHLORIDE 10 MEQ CONTROLLED RELEASE TAB PO SCH (08:53)
[2017-01-13] MEDS: LORazepam 0.5 MG TAB PO SCH (08:53)
[2017-01-13] MEDS: ASCORBIC ACID 500 MG TAB PO SCH (08:53)
[2017-01-13] MEDS: SUCRALFATE 1 GM TAB PO SCH ×2 (08:53→12:06)
[2017-01-13] MEDS: FUROSEMIDE 40 MG TAB PO SCH (08:53)
[2017-01-13] MEDS: PANTOPRAZOLE SOD 40 MG DELAYED RELEASE TAB PO SCH (08:53)
[2017-01-13] MEDS: FOLIC ACID 1 MG TAB PO SCH (08:53)
[2017-01-13] MEDS: BUDESONIDE-FORMOTEROL 160/4.5 MCG INHALER INH SCH (08:54)
[2017-01-13] MEDS: SODIUM CHLORIDE 0.9% FLUSH 10 ML FLUSH IVF SCH (08:54)
[2017-01-13] MEDS: predniSONE 20 MG TAB PO SCH (08:56)
[2017-01-13] MEDS ORDERED: FURO40TA PO (09:55)
[2017-01-13] MEDS ORDERED: FERR325T PO (09:55)
[2017-01-13] MEDS ORDERED: NYST1000 SWISH-SWAL (09:55)
[2017-01-13 12:00] VITALS: BP 134/87; PULSE 97; RESP 18; TEMP 97.7; O2SAT 97
--- NOTE | 2017-01-18 14:59 | MD ---
cc: MICHAEL BAGLEY MD ADMISSION DATE: 12/25/2016 DISCHARGE DATE: 01/13/2017 DISPOSITION: Okay to discharge the patient home with home health care. CONDITION AT THE TIME OF DISCHARGE: Satisfactory. DISCHARGE ACTIVITY: As tolerated. DISCHARGE DIET: Cardiac diet. ALLERGIES: 1. DEMEROL. 2. TETRACYCLINE. DISCHARGE MEDICATIONS: 1. Eliquis 5 milligrams p.o. twice a day. 2. Ceftin 500 milligrams twice a day. 3. Flexeril 10 milligrams p.o. three times a day. 4. Lipitor 20 milligrams p.o. at bedtime. 5. Symbicort two puff inhalations q. 12 hours. 6. Diltiazem 360 milligrams p.o. daily. 7. Hydrocodone / acetaminophen 5 / 325 two tablets p.o. q. 4 hours PRN pain. 8. DuoNeb nebulizations q. 4 hours. 9. Lorazepam 0.5 milligrams twice a day. 10. Micafungin 150 milligrams IV daily. 11. Singulair 10 milligrams p.o. at bedtime. 12. Metoprolol 40 milligrams p.o. daily. 13. Prednisone 10 milligrams p.o. daily. 14. Carafate 1 gram p.o. three times a day. DISCHARGE INSTRUCTIONS: The patient was advised to follow up with primary care physician, cardiology, gastroenterology and infectious disease, hematology / oncology, orthopedic and pulmonary doctors in one to two weeks. ADMITTING DIAGNOSIS: 1. Shortness of breath secondary to COPD exacerbation / asthma exacerbation and also shortness of breath secondary to pulmonary embolism. The patient developed a right-sided pulmonary embolism at this time. 2. Sepsis on admission. 3. Acute asthma exacerbation. 4. Hypertension. 5. Hyperlipidemia. 6. Anemia. 7. Right hip pain status post right total hip arthroplasty recently. 8. History of depression. 9. History of tachycardia secondary to medication induced. 10. Oral thrush. The patient was given Nystatin. 11. Lower extremity swelling. Venous Doppler was checked for DVT which it did not show any DVT. 11. Burning pain for urination secondary to a urinary tract infection. The patient was given Rocephin during the hospital stay. 12. Hypokalemia during the hospital stay. Potassium was replaced 13. Abdominal distention. An abdominal x-ray was done that shows nothing acute. HOSPITAL COURSE: This is a 51-year-old very pleasant male admitted with shortness of breath diagnosed with another pulmonary embolism on the right side which is affecting the right lower lobe with a large filling defect extending into at least three segmental arteries. No evidence of pleural effusion. Chest x-ray was done shows no focal infiltrate seen. A hip x-ray was done that shows migration of the greater trochanter screw laterally with the separation of the side plate by approximately 7-8 mm. Orthopedic was seeing the patient during the hospital stay. Please see the full orthopedic report. A femur x-ray was done and shows migration of the screw laterally at the level of the greater trochanteric accompanied with separation of 7 to 8 mm. Lower extremity ultrasound done shows no evidence of DVT. CT of the abdomen and pelvis was done and shows no renal calculi or hydronephrosis, diverticulosis without diverticulitis. Abdominal x-ray done for abdominal distension shows nonspecific bowel gas pattern with a moderate amount of stool present greater in the right side of the colon. Gallbladder ultrasound done shows the liver is slightly echogenic which may be due to fatty infiltration and no hepatocellular dysfunction. Hip x-ray done shows good alignment of the revision arthroplasty hardware and a femur x-ray done shows a revision of the arthroplasty of the right hip as described above. The alignment appears good. The patient seen by the crystal calibrator and the patient was started on Eliquis initially was 2.5 mg twice a day which was changed to 5 mg twice a day. Discussed with Dr. Reuben Cali want to keep the patient on Eliquis. Cardiology was seeing the patient. Echocardiogram was done and discussed with Dr. Moody about the patient's condition. The patient also got iron therapy during the hospital stay and had a low iron. The patient was discharged in satisfactory condition. The patient also had anemia with a hemoglobin of 10.7. The patient had mild hypokalemia during the hospital stay which resolved. The patient also had a high alkaline phosphatase of 215, 209 and 212. The patient also had a low total protein of 5.5 and a low albumin of 3.0. PT was 10.4, INR 0.9, APTT 21.1. Urine examination shows positive nitrite. Culture not indicated. Negative leukocyte esterase. Urine bacteria rare and WBCs less than 1. Blood cultures x2 done negative so far. Fecal occult blood test x2 done was negative for blood. Urine culture shows 50-100,000 mixed savanna. Please see further details in the medical record. Michael Bagley MD EA/LILIA /9:49 AM /2:45 PM
== END 2017-01-13 12:30 | disposition home health service (06) | DRG 871 ==
LOC: NEPE 12:24 → NEDA 14:42 → HCIN 18:49 → N04B 12-29 16:15
PROVIDERS: ADMIT Family Medicine; ATTEND Family Medicine
PROC: 5A09457 Assistance with Respiratory Ventilation, 24-96 Consecutive Hours, Continuous Positive Airway Pressure (ICD-10-PCS; principal; 2016-12-25)
PROC: 30233P1 Transfusion of Nonautologous Frozen Red Cells into Peripheral Vein, Percutaneous Approach (ICD-10-PCS; 2016-12-31)
DX: A41.9 Sepsis, unspecified organism (principal); I26.99 Other pulmonary embolism without acute cor pulmonale; J96.02 Acute respiratory failure with hypercapnia; B37.89 Other sites of candidiasis; J45.901 Unspecified asthma with (acute) exacerbation; K21.0 Gastro-esophageal reflux disease with esophagitis; B37.0 Candidal stomatitis; N39.0 Urinary tract infection, site not specified; R65.20 Severe sepsis without septic shock; E78.5 Hyperlipidemia, unspecified; I10 Essential (primary) hypertension; S72.001D Fracture of unspecified part of neck of right femur, subsequent encounter for closed fracture with routine healing; I25.10 Atherosclerotic heart disease of native coronary artery without angina pectoris; D50.9 Iron deficiency anemia, unspecified; R60.0 Localized edema; M97.01XD Periprosthetic fracture around internal prosthetic right hip joint, subsequent encounter; E66.9 Obesity, unspecified; R73.9 Hyperglycemia, unspecified; E87.6 Hypokalemia; R14.0 Abdominal distension (gaseous); M19.90 Unspecified osteoarthritis, unspecified site; F41.9 Anxiety disorder, unspecified; Z68.30 Body mass index [BMI] 30.0-30.9, adult; Z79.01 Long term (current) use of anticoagulants; Z86.711 Personal history of pulmonary embolism; Z86.718 Personal history of other venous thrombosis and embolism; Z88.1 Allergy status to other antibiotic agents; Z88.5 Allergy status to narcotic agent; Z96.643 Presence of artificial hip joint, bilateral
CPT/HCPCS: 36430; 36600; 71010; 71275; 73502; 73552; 74000; 74177; 76705; 80048; 80053; 81001; 82272; 82550; 82728; 82805; 82948; 83020; 83540; 83550; 83605; 83735; 83880; 84484; 85007; 85014; 85018; 85025; 85027; 85610; 85730; 86850; 86900; 86901; 86920; 87040; 87086; 93005; 93306; 93970; 93971; 94002; 94003; 94640; 94664; 96365; 96368; 96375; J0171; J0456; J0461; J0696; J1642; J1644; J1756; J1815; J1940; J2060; J2248; J2920; J2930; J7030; J7050; J7512; P9016; Q9963; Q9967

== ENCOUNTER 2017-01-18 07:25 | Emergency (ER) | payer BC ==
[2017-01-18] VITALS (7 sets, daily range): BP systolic 127–141; BP diastolic 72–89; PULSE 101–128; RESP 20–28; TEMP 97.8; O2SAT 98–100
[~2017-01-18 07:25] MED LIST changes: -APIX2.5T PO; +APIX5TAB PO; +CEFT500T3 PO; +CYCL1TAB29 PO; -DILT360C12 PO; +FERR325T PO; -FLUC200T2 PO; +FURO40TA PO; -HYDR-3534 PO; +NYST1000 SWISH-SWAL; -POTA-243 PO; +PRIL20CA9 PO; -PROM6.256 PO; -PROT40TA PO; -ULTR50TA5 PO; +[UNRECOGNIZED DRUG - CODE] PO
[2017-01-18] MEDS ORDERED: methylPREDNISolone SOD SUCC 125 MG/2 ML VIAL IVP ONE (07:45)
[2017-01-18] MEDS ORDERED: SODIUM CHLORIDE 0.9% FLUSH 10 ML FLUSH IVF PRN (07:45)
[2017-01-18] MEDS ORDERED: MORPHINE SULFATE 8 MG/ML INJ IV PUSH ONE (07:45)
[2017-01-18] MEDS ORDERED: ONDANSETRON HCL 4 MG/2 ML VIAL ONE (07:51)
--- NOTE | 2017-01-18 08:03 | RADRPT ---
EXAM DATE/TIME: 01/18/2017 07:57 [facility] COMPARISON: CHEST SINGLE AP, December 25, 2016, 13:27. INDICATIONS : Shortness of breath. MEDICAL HISTORY : Chronic obstructive pulmonary disease. Asthma. SURGICAL HISTORY : None. ENCOUNTER: Initial ACUITY: 1 day PAIN SCORE: 0/10 LOCATION: Bilateral chest FINDINGS: A single view of the chest demonstrates the lungs to be symmetrically aerated without evidence of mas s, infiltrate or effusion. The cardiomediastinal contours are unremarkable. Osseous structures are intact. CONCLUSION: No acute disease. Davion Carranza MD on January 18, 2017 at 8:00 Board Certified Radiologist. This report was verified electronically.
[2017-01-18] MEDS: RESP: ALBUTEROL 2.5 MG/IPRATROPIUM 0.5 MG NEB (SCH) INH (08:04)
[2017-01-18 08:06] LABS: BASOPHIL # 0.1 TH/MM3 (0-0.2); BASOPHIL % 1.4 % (0.0-2.0); EOSINOPHIL # 0.1 TH/MM3 (0-0.4); EOSINOPHIL % 1.2 % (0.0-4.0); HEMATOCRIT 40.6 % (39.0-51.0); LYMPH % 31.5 % (9.0-44.0); LYMPHOCYTE # 2.1 TH/MM3 (1.0-4.8); MEAN CELL VOLUME 80.7 FL (80.0-100.0); MONO % 6.1 % (0.0-8.0); NEUT % 59.8 % (16.0-70.0); PLATELET COUNT 313 TH/MM3 (150-450); RED BLOOD COUNT 5.04 MIL/MM3 (4.50-5.90); RED CELL DISTRIBUTION WIDTH 30.7 % (11.6-17.2); WHITE BLOOD COUNT 6.8 TH/MM3 (4.0-11.0)
[2017-01-18 08:08] LABS: HEMO FLAGS AUTO DIFF
--- NOTE | 2017-01-18 08:11 | PD ---
HPI Chief Complaint: Respiratory Symptoms Time Seen by Provider: 07:39 Travel History International Travel<30 days: No Contact w/Intl Traveler<30days: No Traveled to known affect area: No History of Present Illness HPI 51-year-old male arrives to the ER complaining of shortness of breath and left chest pain. It has been worsening overnight. He used two consecutive nebulizer treatments at home which were not helpful. + Prior PE while on Eloquis, which he has been taking however reports L CP feels like prior PE. No fever. + Cough. notes pt has hx of sinus tachycardia. PMH includes CPD, HLD , asthma, DVT, PE. PFSH Past Medical History Hx Anticoagulant Therapy: Yes (COUMADIN, LOVENOX) Arthritis: Yes Asthma: Yes Autoimmune Disease: No Blood Disorders: No Anxiety: Yes Depression: No Heart Rhythm Problems: Yes (TACHY) Cancer: No Cardiovascular Problems: Yes High Cholesterol: Yes Chemotherapy: No Chest Pain: Yes (DUE TO PE, PNEUMONIA) Congestive Heart Failure: No COPD: Yes Cerebrovascular Accident: No Diabetes: No Diminished Hearing: No Deep Vein Thrombosis: Yes (DECEMBER 2015: RIGHT LEG WITH PULMONARY EMBOLISM) Endocrine: No Gastrointestinal Disorders: No GERD: Yes Genitourinary: No Headaches: No Hiatal Hernia: No Heparin Induced Thrombocytopen: No Hypertension: Yes (New HTN since last admit per pt/not documented) Immune Disorder: No Implanted Vascular Access Dvce: Yes Kidney Stones: No Musculoskeletal: Yes (HIP SURGERIES, ARTHRITIS) Neurologic: No Psychiatric: Yes Reproductive: No Respiratory: Yes Migraines: No Pneumonia: Yes (NOVEMBER 2015) Radiation Therapy: No Renal Failure: No Seizures: No Sickle Cell Disease: No Sleep Apnea: No Thyroid Disease: No Ulcer: No ?: Not Past Surgical History Abdominal Surgery: No AICD: No Appendectomy: Yes Arteriovenous Shunt: No Cardiac Surgery: No Endocrine Surgery: No Eye Surgery: No Genitourinary Surgery: Yes (apendectomy) Gynecologic Surgery: No Insulin Pump: No Joint Replacement: Yes (BILAT HIP REPLACEMENT) Neurologic Surgery: No Oral Surgery: Yes (TONSILLECTOMY) Pacemaker: No Thoracic Surgery: No Tonsillectomy: Yes Other Surgery: Yes (HIPS, APPENDIX, TONSILS) Social History Alcohol Use: No Tobacco Use: No Substance Use: No Allergies-Medications (Allergen,Severity, Reaction): Coded Allergies: Tetracycline (Verified Allergy, Severe, throat swells, 01/18/17) Demerol (Verified Allergy, Intermediate, hallucinations, 01/18/17) Reported Meds & Prescriptions Reported Meds & Active Scripts Active Prednisone 20 Mg Tab 40 Mg PO DAILY 4 Days Take 40 mg (2 tablets) daily for 5 days Ferrous Sulfate 325 Mg Tab 325 Mg PO TID Furosemide 40 Mg Tab 40 Mg PO DAILY Nystatin Liq 100,000 unit/ml Susp 5 Ml SWISH-SWAL QID Ceftin (Cefuroxime Axetil) 500 Mg Tab 500 Mg PO BID Flexeril (Cyclobenzaprine HCl) 10 Mg Tab 10 Mg PO Q8H PRN Eliquis (Apixaban) 5 Mg Tab 5 Mg PO BID Hydrocodone-Acetaminophen 5-325 mg Tab 2 Tab PO Q4H PRN Ativan (Lorazepam) 0.5 Mg Tab 0.5 Mg PO BID Prednisone 10 Mg Tab 10 Mg PO DAILY Reported Matzim LA (Diltiazem ER 24 HR) 360 Mg Can 360 Mg PO DAILY Prilosec (Omeprazole) 20 Mg Cap 40 Mg PO DAILY Duoneb (Ipratropium-Albuterol Neb) 0.5-2.5 Mg/3 Ml Neb 1 Nebule NEB QID PRN Symbicort Inh (Budesonide/Formoterol Fumarate) 160-4.5 Mcg/Act Aero 2 Puff INH Q12HR Singulair (Montelukast Sodium) 10 Mg Tab 10 Mg PO HS Lipitor (Atorvastatin Calcium) 20 Mg Tab 20 Mg PO HS Carafate (Sucralfate) 1 Gm Tab 1 Gm PO TID On empty stomach Levalbuterol Neb (Levalbuterol HCl) 1.25 Mg/3 Ml Neb 1.25 Mg NEB BID PRN Review of Systems Except as stated in HPI: all other systems reviewed are Neg General / Constitutional: No: Fever Respiratory: Positive: Shortness of Breath, Wheezing Physical Exam Narrative GENERAL: 51 SKIN: Warm and dry. HEAD: Atraumatic. Normocephalic. EYES: Pupils equal and round. No scleral icterus. No injection or drainage. ENT: No nasal bleeding or discharge. Mucous membranes pink and moist. NECK: Trachea midline. No JVD. CARDIOVASCULAR: Regular rate and rhythm. RESPIRATORY: No accessory muscle use. Clear to auscultation. Breath sounds equal bilaterally. GASTROINTESTINAL: Abdomen soft, non-tender, nondistended. Hepatic and splenic margins not palpable. MUSCULOSKELETAL: Extremities without clubbing, cyanosis, or edema. No obvious deformities. NEUROLOGICAL: Awake and alert. No obvious cranial nerve deficits. Motor grossly within normal limits. Five out of 5 muscle strength in the arms and legs. Normal speech. PSYCHIATRIC: Appropriate mood and affect; insight and judgment normal. Data Data Last Documented VS Vital Signs Date Time Temp Pulse Resp B/P Pulse Ox O2 Delivery O2 Flow Rate FiO2 01/18/17 08:42 124 24 134/89 100 BiPAP 5 40 01/18/17 07:29 97.8 Orders Complete Blood Count With Diff (01/18/17 07:39) Basic Metabolic Panel (Bmp) (01/18/17 07:39) B-Type Natriuretic Peptide (01/18/17 07:39) Act Partial Throm Time (Ptt) (01/18/17 07:39) Prothrombin Time / Inr (Pt) (01/18/17 07:39) Magnesium (Mg) (01/18/17 07:39) Ckmb (Isoenzyme) Profile (01/18/17 07:39) Troponin I (01/18/17 07:39) Arterial Blood Gas (Abg) (01/18/17 07:39) Iv Access Insert/Monitor (01/18/17 07:39) Electrocardiogram (01/18/17 07:39) Ecg Monitoring (01/18/17 07:39) Oximetry (01/18/17 07:39) Oxygen Administration (01/18/17 07:39) Chest, Single Ap (01/18/17 07:39) Sodium Chloride 0.9% Flush (Ns Flush) (01/18/17 07:45) Methylprednisolone So Succ Inj (Solumedr (01/18/17 07:45) Albuterol-Ipratropium Neb (Duoneb Neb) (01/18/17 07:45) Resp Bipap / Cpap Non Invas Vt (01/18/17 07:39) Morphine Inj (Morphine Inj) (01/18/17 07:45) Ondansetron Inj (Zofran Inj) (01/18/17 07:51) Ct Pulmonary Angiogram (01/18/17 08:32) Lorazepam Inj (Ativan Inj) (01/18/17 08:53) Lorazepam Inj (Ativan Inj) (01/18/17 09:00) Ondansetron Inj (Zofran Inj) (01/18/17 09:00) Iohexol 350 Inj (Omnipaque 350 Inj) (01/18/17 09:10) Labs Laboratory Tests Test 01/18/17 01/18/17 07:45 08:36 White Blood Count 6.8 TH/MM3 Red Blood Count 5.04 MIL/MM3 Hemoglobin 12.6 GM/DL Hematocrit 40.6 % Mean Corpuscular Volume 80.7 FL Mean Corpuscular Hemoglobin 25.0 PG Mean Corpuscular Hemoglobin 31.0 % Concent Red Cell Distribution Width 30.7 % Platelet Count 313 TH/MM3 Mean Platelet Volume 7.4 FL Neutrophils (%) (Auto) 59.8 % Lymphocytes (%) (Auto) 31.5 % Monocytes (%) (Auto) 6.1 % Eosinophils (%) (Auto) 1.2 % Basophils (%) (Auto) 1.4 % Neutrophils # (Auto) 4.0 TH/MM3 Lymphocytes # (Auto) 2.1 TH/MM3 Monocytes # (Auto) 0.4 TH/MM3 Eosinophils # (Auto) 0.1 TH/MM3 Basophils # (Auto) 0.1 TH/MM3 CBC Comment AUTO DIFF Differential Total Cells 100 Counted Neutrophils % (Manual) 54 % Lymphocytes % 30 % Monocytes % 11 % Eosinophils % 1 % Neutrophils # (Manual) 3.9 TH/MM3 Metamyelocytes 1 % Myelocytes 3 % Nucleated Red Blood Cells 1 /100 WBC Differential Comment FINAL DIFF MANUAL Platelet Estimate NORMAL Platelet Morphology Comment NORMAL Ovalocytes 1+ Prothrombin Time 10.5 SEC Prothromb Time International 1.0 RATIO Ratio Activated Partial 23.9 SEC Thromboplast Time Sodium Level 139 MEQ/L Potassium Level 3.7 MEQ/L Chloride Level 103 MEQ/L Carbon Dioxide Level 26.1 MEQ/L Anion Gap 10 MEQ/L Blood Urea Nitrogen 15 MG/DL Creatinine 0.82 MG/DL Estimat Glomerular Filtration 99 ML/MIN Rate Random Glucose 142 MG/DL Calcium Level 9.6 MG/DL Magnesium Level 2.0 MG/DL Total Creatine Kinase 51 U/L Troponin I LESS THAN 0.02 NG/ML B-Type Natriuretic Peptide 3 PG/ML Blood Gas Puncture Site LT RADIAL Blood Gas Patient Temperature 98.6 Blood Gas HCO3 22 mmol/L Blood Gas Base Excess -0.5 mmol/L Blood Gas Oxygen Saturation 98 % Arterial Blood pH 7.49 Arterial Blood Partial 29 mmHg Pressure CO2 Arterial Blood Partial 214 mmHG Pressure O2 Arterial Blood Oxygen Content 17.8 Vol % Arterial Blood 1.7 % Carboxyhemoglobin Arterial Blood Methemoglobin 0.4 % Blood Gas Hemoglobin 12.6 G/DL Oxygen Delivery Device BiPAP Blood Gas Ventilator Setting IPAP10/ EPAP5 Blood Gas Inspired Oxygen 50 % [facility] Medical Decision Making Medical Screen Exam Complete: Yes Emergency Medical Condition: Yes Medical Record Reviewed: Yes Differential Diagnosis COPD exacerbation, PE, pneumonia, pneumothorax, acute coronary syndrome Narrative Course CBC & BMP Diagram 01/18/17 07:45 Troponin less than 0.02 EKG reveals a sinus tachycardia with fine artifact, rate 123 Last [address] Angiography 01/18/17 0832 Signed Impressions: Service Date/Time: Wednesday, January 18, 2017 08:59 - CONCLUSION: 1. Right lower lobe pulmonary embolus again seen not significantly changed. 2. Bibasilar atelectasis. Davion Carranza MD Chest X-Ray 01/18/17 0739 Signed Impressions: Service Date/Time: Wednesday, January 18, 2017 07:57 - CONCLUSION: No acute disease. Davion Carranza MD The patient will stay for chest pain center evaluation has he reports persistent left-sided chest pain upon reassessment at about 10:00 AM. He was able to ambulate about the pod and return to his bed with an O2 sat of 98% on room air. He's had no stress test within the past 2 years. He has 19 troponins on record for the last year old which are either undetectable or 0.02. In this scenario outpatient provocative cardiac evaluation is considered most reasonable next step. Pt has verbalized agreement with plan and appreciation for care here. Diagnosis Primary Impression: Wheezing Additional Impression: Chest pain Qualified Code: R07.9 - Chest pain, unspecified type Referrals: Jluis Morris MD 2 days Primary Care Physician Additional Instructions: You have a choice when it comes to health care, and we are glad that you chose [facility]. Hopefully, we have met your expectations on today's visit. You are welcome to return to [facility] at any time, as we are committed to meeting the health care needs of our community. Med/Other Pt SpecificInfo: Prescription(s) given Scripts Prednisone 20 Mg Tab40 Mg PO DAILY 4 Days Ref 0 Take 40 mg (2 tablets) daily for 5 days Prov:Braulio Rosario MD 01/18/17 Disposition: 01 DISCHARGE HOME Condition: Stable Braulio Rosario MD January 18, 2017 08:11
[2017-01-18 08:16] LABS: APTT (PATIENT) 23.9 SEC (24.3-30.1); PROTHROMBIN TIME - PATIENT 10.5 SEC (9.8-11.6)
[2017-01-18 08:39] LABS: ANION GAP 10 MEQ/L (5-15); BICARBONATE 26.1 MEQ/L (21.0-32.0); BLOOD UREA NITROGEN 15 MG/DL (7-18); CHLORIDE 103 MEQ/L (98-107); GLOMERULAR FILTRATION RATE 99 ML/MIN (>89); POTASSIUM 3.7 MEQ/L (3.5-5.1); SODIUM (NA) 139 MEQ/L (136-145)
[2017-01-18 08:40] LABS: CREATINE KINASE 51 U/L (39-308)
[2017-01-18 08:45] LABS: CORRECTED NUCLEATED RBC 1 /100 WBC (0-0); EOSINOPHILS 1 % (0-4); METAMYELOCYTES 1 % (0-1); MYELOCYTES 3 % (0-0); NEUTROPHIL # MANUAL DIFF 3.9 TH/MM3 (1.8-7.7); PLATELET ESTIMATE SMEAR NORMAL (NORMAL); PLATELET MORPHOLOGY NORMAL (NORMAL); POLYS (SEG NEUTROPHILS) 54 % (16-70); SCAN/DIFF FINAL DIFF MANUAL; WBC DIFF SAMPLE 100
[2017-01-18 08:46] LABS: OVALOCYTES 1+ (NORMAL)
[2017-01-18 08:47] LABS: BLOOD GAS BASE EXCESS -0.5 mmol/L (-2-2); BLOOD GAS CARBOXYHEMOGLOBIN 1.7 % (0-4); BLOOD GAS HCO3 22 mmol/L (22-26); BLOOD GAS METHEMOGLOBIN 0.4 % (0-2); BLOOD GAS O2 HGB SATURATION 98 % (90-100); BLOOD GAS OXYGEN CONTENT 17.8 Vol % (12.0-20.0); BLOOD GAS PCO2 29 mmHg (38-42); BLOOD GAS PO2 214 mmHG (61-120); BLOOD GAS TOTAL HGB 12.6 G/DL (12.0-16.0); CRITICAL VALUE NO; DRAW SITE LT RADIAL; FIO2 50 %; NUMBER OF ARTERIAL PUNCTURES 1; OXYGEN DEVICE BiPAP; STAT YES; TEMP CORR TO 98.6; ULNAR PULSE PRESENT; VENT SETTINGS IPAP10/ EPAP5
[2017-01-18] MEDS ORDERED: LORazepam 2 MG/ML VIAL ONE (08:53)
[2017-01-18] MEDS ORDERED: ONDANSETRON HCL 4 MG/2 ML VIAL IV PUSH ONE (09:00)
[2017-01-18] MEDS ORDERED: LORazepam 2 MG/ML VIAL IV PUSH ONE (09:00)
[2017-01-18] MEDS ORDERED: IOHEXOL 350 MG/ML 10 ML VIAL (for RAD DIAG) IV ONE (09:10)
--- NOTE | 2017-01-18 09:24 | RADRPT ---
EXAM DATE/TIME: 01/18/2017 08:59 [place] COMPARISON: CT PULMONARY ANGIOGRAM, December 25, 2016, 14:45. INDICATIONS : Left sided chest pain and shortness of breath since yesterday. IV CONTRAST: 69 cc Omnipaque 350 (iohexol) IV RADIATION DOSE: 18.08 CTDIvol (mGy) MEDICAL HISTORY : Chronic obstructive pulmonary disease. pulmonary embolism, deep vein thrombosis, hypertenstion SURGICAL HISTORY : Tonsillectomy. Appendectomy. ENCOUNTER: Initial ACUITY: 2 days PAIN SCALE: 7/10 LOCATION: Left chest TECHNIQUE: Volumetric scanning of the chest was performed using a pulmonary embolism protocol MIP images were re constructed. Using automated exposure control and adjustment of the mA and/or kV according to patien t size, radiation dose was kept as low as reasonably achievable to obtain optimal diagnostic quality images. FINDINGS: PULMONARY ARTERIES: Right lower lobe pulmonary embolus again seen not significantly changed LUNGS: There is no consolidation or pneumothorax . Bibasilar atelectasis. No concerning pulmonary nodule is visualized. PLEURAE: There is no pleural thickening or pleural effusion. MEDIASTINUM: There is good visualization of the great vessels of the middle mediastinum. No evidence of mediastin al or hilar adenopathy/mass. Coronary artery calcifications MUSCULOSKELETAL: Within normal limits for patient age. MISCELLANEOUS: The visualized upper abdominal organs demonstrate no acute abnormality. CONCLUSION: 1. Right lower lobe pulmonary embolus again seen not significantly changed. 2. Bibasilar atelectasis. Davion Carranza MD on January 18, 2017 at 9:16 Board Certified Radiologist. This report was verified electronically.
[2017-01-18] MEDS ORDERED: PRED20 PO (10:20)
--- NOTE | 2017-01-18 13:47 | EKG ---
Date Performed: 01/18/2017 Time Performed: 07:39:58 PTAGE: 51 years EKG: SINUS TACHYCARDIA MODERATE VOLTAGE CRITERIA FOR LVH, CONSIDER NORMAL VARIANT NONSPECIFIC ST & T-WAVE ABNORMALITY Since previous tracing, no significant change noted ABNORMAL RHYTHM ECG PREVIOUS TRACING : 12/25/2016 12.39.47 DOCTOR: Judith Baires Interpretating Date/Time 01/18/2017 13:46:33
== END 2017-01-18 11:18 | disposition home or self-care (01) ==
LOC: NEPC 07:25
DX: R06.2 Wheezing (principal); R07.9 Chest pain, unspecified; R00.0 Tachycardia, unspecified; J45.909 Unspecified asthma, uncomplicated; E78.00 Pure hypercholesterolemia, unspecified; J44.9 Chronic obstructive pulmonary disease, unspecified; I10 Essential (primary) hypertension; K21.9 Gastro-esophageal reflux disease without esophagitis; Z86.711 Personal history of pulmonary embolism; Z86.718 Personal history of other venous thrombosis and embolism; Z79.01 Long term (current) use of anticoagulants
CPT/HCPCS: 36600; 71010; 71275; 80048; 82550; 82805; 83735; 83880; 84484; 85007; 85027; 85610; 85730; 93005; 94640; 94664; 96374; 96375; 96376; 99285; J2060; J2270; J2405; J2930; Q9967; 94002

== ENCOUNTER 2017-01-30 14:20 | Inpatient (IN) | payer BC ==
[~2017-01-30] VITALS: Ht 175.3 cm; Wt 98.8 kg
[2017-01-30] VITALS (9 sets, daily range): BP systolic 138–154; BP diastolic 91–98; PULSE 111–126; RESP 18–36; TEMP 97.4–98; O2SAT 94–98
[~2017-01-30 14:20] MED LIST changes: +PRED20 PO
--- NOTE | 2017-01-30 14:43 | PD ---
HPI Chief Complaint: Altered Mental Status Time Seen by Provider: 14:35 Travel History International Travel<30 days: No Contact w/Intl Traveler<30days: No Traveled to known affect area: No History of Present Illness HPI 51-year-old male presents with for evaluation of dyspnea and slow response when answering questions. Last acting normally this morning at 8 AM. He had an appointment with his plastic joint maker, had pulmonary function tests and since then he's been complaining of worsening dyspnea. The feels like he is somewhat delayed when answering questions. No other neurologic symptoms beyond that. He has a history of PE, DVT, asthma, tachycardia. The patient reports that he is complaining of worsening dyspnea. He denies confusion, headache, blurred vision, nausea or vomiting, chest pain, abdominal pain, focal weakness, slurred speech. No other complaints. PFSH Past Medical History Hx Anticoagulant Therapy: Yes (COUMADIN, LOVENOX) Arthritis: Yes Asthma: Yes Autoimmune Disease: No Blood Disorders: No Anxiety: Yes Depression: No Heart Rhythm Problems: Yes (TACHY) Cancer: No Cardiovascular Problems: Yes High Cholesterol: Yes Chemotherapy: No Chest Pain: Yes (DUE TO PE, PNEUMONIA) Congestive Heart Failure: No COPD: Yes Cerebrovascular Accident: No Diabetes: No Diminished Hearing: No Deep Vein Thrombosis: Yes (DECEMBER 2015: RIGHT LEG WITH PULMONARY EMBOLISM) Endocrine: No Gastrointestinal Disorders: No GERD: Yes Genitourinary: No Headaches: No Hiatal Hernia: No Heparin Induced Thrombocytopen: No Hypertension: Yes (New HTN since last admit per pt/not documented) Immune Disorder: No Implanted Vascular Access Dvce: Yes Kidney Stones: No Musculoskeletal: Yes (HIP SURGERIES, ARTHRITIS) Neurologic: No Psychiatric: Yes Reproductive: No Respiratory: Yes Migraines: No Pneumonia: Yes (NOVEMBER 2015) Radiation Therapy: No Renal Failure: No Seizures: No Sickle Cell Disease: No Sleep Apnea: No Thyroid Disease: No Ulcer: No Past Surgical History Abdominal Surgery: No AICD: No Appendectomy: Yes Arteriovenous Shunt: No Cardiac Surgery: No Endocrine Surgery: No Eye Surgery: No Genitourinary Surgery: Yes (apendectomy) Gynecologic Surgery: No Insulin Pump: No Joint Replacement: Yes (BILAT HIP REPLACEMENT) Neurologic Surgery: No Oral Surgery: Yes (TONSILLECTOMY) Pacemaker: No Thoracic Surgery: No Tonsillectomy: Yes Other Surgery: Yes (HIPS, APPENDIX, TONSILS) Social History Alcohol Use: No Tobacco Use: No Substance Use: No Allergies-Medications (Allergen,Severity, Reaction): Coded Allergies: Tetracycline (Verified Allergy, Severe, throat swells, 01/30/17) Demerol (Verified Allergy, Intermediate, hallucinations, 01/30/17) Reported Meds & Prescriptions Reported Meds & Active Scripts Active Furosemide 40 Mg Tab 40 Mg PO DAILY Flexeril (Cyclobenzaprine HCl) 10 Mg Tab 10 Mg PO Q8H PRN Eliquis (Apixaban) 5 Mg Tab 5 Mg PO BID Hydrocodone-Acetaminophen 5-325 mg Tab 2 Tab PO Q4H PRN Ativan (Lorazepam) 0.5 Mg Tab 0.5 Mg PO BID Prednisone 10 Mg Tab 10 Mg PO DAILY Reported Fluconazole 100 Mg Tab 100 Mg PO BID Omeprazole 40 Mg Cap 40 Mg PO HS Matzim LA (Diltiazem ER 24 HR) 360 Mg Can 360 Mg PO DAILY Duoneb (Ipratropium-Albuterol Neb) 0.5-2.5 Mg/3 Ml Neb 1 Nebule NEB QID PRN Symbicort Inh (Budesonide/Formoterol Fumarate) 160-4.5 Mcg/Act Aero 2 Puff INH Q12HR Singulair (Montelukast Sodium) 10 Mg Tab 10 Mg PO HS Lipitor (Atorvastatin Calcium) 20 Mg Tab 20 Mg PO HS Carafate (Sucralfate) 1 Gm Tab 1 Gm PO TID On empty stomach Levalbuterol Neb (Levalbuterol HCl) 1.25 Mg/3 Ml Neb 1.25 Mg NEB BID PRN Review of Systems Except as stated in HPI: all other systems reviewed are Neg Physical Exam Narrative GENERAL: Well-developed well-nourished male who is somewhat tachypneic, auditory wheezing when standing at bedside. SKIN: Warm and dry. HEAD: Atraumatic. Normocephalic. EYES: Pupils equal and round. No scleral icterus. No injection or drainage. ENT: No nasal bleeding or discharge. Mucous membranes pink and moist. NECK: Trachea midline. No JVD. CARDIOVASCULAR: Regular rate and rhythm. No murmur appreciated. RESPIRATORY: No accessory muscle use. Tachypneic, auditory wheezing. GASTROINTESTINAL: Abdomen soft, non-tender, nondistended. Hepatic and splenic margins not palpable. MUSCULOSKELETAL: No obvious deformities. No clubbing. No cyanosis. No edema. NEUROLOGICAL: Awake and alert. No obvious cranial nerve deficits. Motor grossly within normal limits. Normal speech. PSYCHIATRIC: Appropriate mood and affect; insight and judgment normal. Data Data Last Documented VS Vital Signs Date Time Temp Pulse Resp B/P Pulse Ox O2 Delivery O2 Flow Rate FiO2 01/30/17 15:15 97 40 01/30/17 14:44 27 Nasal Cannula 2 01/30/17 14:28 98.0 126 143/98 Orders Complete Blood Count With Diff (01/30/17 14:39) Comprehensive Metabolic Panel (01/30/17 14:39) Magnesium (Mg) (01/30/17 14:39) Ckmb (Isoenzyme) Profile (01/30/17 14:39) Troponin I (01/30/17 14:39) Arterial Blood Gas (Abg) (01/30/17 14:39) Iv Access Insert/Monitor (01/30/17 14:39) Electrocardiogram (01/30/17 14:39) Ecg Monitoring (01/30/17 14:39) Oximetry (01/30/17 14:39) Oxygen Administration (01/30/17 14:39) Chest, Single Ap (01/30/17 14:39) Sodium Chloride 0.9% Flush (Ns Flush) (01/30/17 14:45) Methylprednisolone So Succ Inj (Solumedr (01/30/17 14:45) Albuterol-Ipratropium Neb (Duoneb Neb) (01/30/17 14:45) Ct Brain W/O Iv Contrast(Rout) (01/30/17 ) Resp Bipap / Cpap Non Invas Vt (01/30/17 ) Beta Hydroxybutyrate (Acetone) (01/30/17 15:50) Sodium Chlor 0.9% 1000 Ml Inj (Ns 1000 M (01/30/17 15:50) Insulin Human Regular Inj (Novolin R Inj (01/30/17 16:00) Admit Order (Ed Use Only) (01/30/17 16:59) Labs Laboratory Tests Test 01/30/17 01/30/17 14:55 16:00 White Blood Count 12.9 TH/MM3 Red Blood Count 4.72 MIL/MM3 Hemoglobin 12.4 GM/DL Hematocrit 39.9 % Mean Corpuscular Volume 84.6 FL Mean Corpuscular Hemoglobin 26.2 PG Mean Corpuscular Hemoglobin 31.0 % Concent Red Cell Distribution Width 28.1 % Platelet Count 319 TH/MM3 Mean Platelet Volume 8.0 FL Neutrophils (%) (Auto) 90.4 % Lymphocytes (%) (Auto) 5.4 % Monocytes (%) (Auto) 3.2 % Eosinophils (%) (Auto) 0.0 % Basophils (%) (Auto) 1.0 % Neutrophils # (Auto) 11.6 TH/MM3 Lymphocytes # (Auto) 0.7 TH/MM3 Monocytes # (Auto) 0.4 TH/MM3 Eosinophils # (Auto) 0.0 TH/MM3 Basophils # (Auto) 0.1 TH/MM3 CBC Comment AUTO DIFF Differential Comment AUTO DIFF CONFIRMED Platelet Estimate NORMAL Platelet Morphology Comment NORMAL Sodium Level 125 MEQ/L Potassium Level 4.5 MEQ/L Chloride Level 91 MEQ/L Carbon Dioxide Level 20.4 MEQ/L Anion Gap 14 MEQ/L Blood Urea Nitrogen 14 MG/DL Creatinine 1.71 MG/DL Estimat Glomerular Filtration 42 ML/MIN Rate Random Glucose 890 MG/DL Calcium Level 8.9 MG/DL Magnesium Level 2.2 MG/DL Total Bilirubin 0.6 MG/DL Aspartate Amino Transf 76 U/L (AST/SGOT) Alanine Aminotransferase 123 U/L (ALT/SGPT) Alkaline Phosphatase 298 U/L Total Creatine Kinase 57 U/L Troponin I LESS THAN 0.02 NG/ML Total Protein 6.9 GM/DL Albumin 3.5 GM/DL B-Hydroxybutyrate 0.79 MMOL/L Blood Gas Puncture Site RT RADIAL Blood Gas Patient Temperature 98.6 Blood Gas HCO3 17 mmol/L Blood Gas Base Excess -7.1 mmol/L Blood Gas Oxygen Saturation 92 % Arterial Blood pH 7.38 Arterial Blood Partial 30 mmHg Pressure CO2 Arterial Blood Partial 76 mmHG Pressure O2 Arterial Blood Oxygen Content 16.3 Vol % Arterial Blood 1.8 % Carboxyhemoglobin Arterial Blood Methemoglobin 1.6 % Blood Gas Hemoglobin 12.6 G/DL Oxygen Delivery Device NASAL CANNULA Blood Gas Liter Flow 2 L/M MDM Medical Decision Making Medical Screen Exam Complete: Yes Emergency Medical Condition: Yes Medical Record Reviewed: Yes Interpretation(s) EKG sinus tachycardia, rate 125 Differential Diagnosis Asthma exacerbation, electrolyte abnormality, CVA, hypercapnia, pneumonia Narrative Course 51-year-old male presents with some low speech according to the for the past several hours, ever since he had outpatient pulmonary function tests performed. On initial examination he is quite tachypneic and he has auditory wheezing from bedside. His chief complaint is shortness of breath which is worse today. He has no focal neurologic deficits. He isn't able to speak in complete sentences secondary to his shortness of breath however. Per chart review the patient was seen here on January 18 with shortness of breath. He had a CT pulmonary angiogram at that time which revealed already known right lower lobe pulmonary embolus not significantly changed. He is on a blood thinner eliquis. Plan is for basic lab work, chest x-ray, CT of the brain. He'll be given DuoNeb therapy, Solu-Medrol and ultimately he was placed on BiPAP secondary to significant shortness of breath. Upon reexamination the patient feels improved, he seems improved according to his . The BiPAP was removed. Chest x-ray reveals underinflated examination , no acute abnormalities. His lab work surprisingly reveals a blood glucose of 890. His blood glucose on 513 was 142. He has no personal history of diabetes but he has been on daily 10 mg prednisone for at least a year according to his . He is given 1 L of IV fluids, bolus of regular insulin. CT brain reveals no acute abnormalities. The patient is being admitted. Discussed with Dr. Ocasio who is agreeable. Admission changed to Dr. Woodward, spoke with Elizabeth Iraheta. Diagnosis Primary Impression: Acute asthma exacerbation Qualified Code: J45.901 - Asthma with acute exacerbation, unspecified asthma severity Additional Impressions: Hyperglycemia Episode of confusion Admitting Information Admitting Physician Requests: Admit Guilherme Carrion January 30, 2017 14:43
[2017-01-30] MEDS ORDERED: SODIUM CHLORIDE 0.9% FLUSH 10 ML FLUSH IVF PRN (14:45)
[2017-01-30] MEDS ORDERED: methylPREDNISolone SOD SUCC 125 MG/2 ML VIAL IVP ONE (14:45)
[2017-01-30] MEDS: RESP: ALBUTEROL 2.5 MG/IPRATROPIUM 0.5 MG NEB (SCH) INH ×2 (14:54→14:57)
[2017-01-30 15:12] LABS: AUTOMATED NEUTROPHIL # 11.6 TH/MM3 (1.8-7.7); BASOPHIL # 0.1 TH/MM3 (0-0.2); HEMATOCRIT 39.9 % (39.0-51.0); LYMPH % 5.4 % (9.0-44.0); LYMPHOCYTE # 0.7 TH/MM3 (1.0-4.8); MEAN CELL VOLUME 84.6 FL (80.0-100.0); MEAN CORPUSCULAR HEMOGLOBIN 26.2 PG (27.0-34.0); MONO % 3.2 % (0.0-8.0); NEUT % 90.4 % (16.0-70.0); PLATELET COUNT 319 TH/MM3 (150-450); RED BLOOD COUNT 4.72 MIL/MM3 (4.50-5.90); RED CELL DISTRIBUTION WIDTH 28.1 % (11.6-17.2); WHITE BLOOD COUNT 12.9 TH/MM3 (4.0-11.0)
[2017-01-30 15:14] LABS: HEMO FLAGS AUTO DIFF
[2017-01-30 15:31] LABS: ANION GAP 14 MEQ/L (5-15)
[2017-01-30 15:33] LABS: ALKALINE PHOSPHATASE 298 U/L (45-117); ALT (GPT) 123 U/L (12-78); AST (GOT) 76 U/L (15-37); BICARBONATE 20.4 MEQ/L (21.0-32.0); BLOOD UREA NITROGEN 14 MG/DL (7-18); CHLORIDE 91 MEQ/L (98-107); GLOMERULAR FILTRATION RATE 42 ML/MIN (>89); MAGNESIUM 2.2 MG/DL (1.5-2.5); SODIUM (NA) 125 MEQ/L (136-145); TOTAL BILIRUBIN ADULT 0.6 MG/DL (0.2-1.0)
--- NOTE | 2017-01-30 15:33 | RADRPT ---
EXAM DATE/TIME: 01/30/2017 14:56 [facility] COMPARISON: CHEST SINGLE AP, January 18, 2017, 7:57. INDICATIONS : Short of breath MEDICAL HISTORY : Chronic obstructive pulmonary disease. Asthma SURGICAL HISTORY : None. ENCOUNTER: Initial ACUITY: 1 day PAIN SCORE: 0/10 LOCATION: Bilateral chest FINDINGS: Portable AP view of the chest demonstrates a normal-sized cardiac silhouette. Lungs are underinflated with mild atelectasis at the right lung base. No effusion, consolidation, or pneumothorax is visuali zed. Bones and soft tissues demonstrate no acute finding. CONCLUSION: Underinflated examination with mild atelectasis at the right lung base. No acute cardiopulmonary abno rmality is identified. Adin Cheema MD on January 30, 2017 at 15:31 Board Certified Radiologist. This report was verified electronically.
[2017-01-30 15:35] LABS: CREATINE KINASE 57 U/L (39-308); POTASSIUM 4.5 MEQ/L (3.5-5.1)
[2017-01-30] MEDS ORDERED: SODIUM CHLOR 0.9% 1000 ML INJ 1,000 ML IV SCH (15:50)
[2017-01-30] MEDS ORDERED: INSULIN HUMAN REGULAR 1,000 UNITS/10 ML VIAL IV PUSH ONE (16:00)
[2017-01-30 16:02] LABS: BLOOD GAS BASE EXCESS -7.1 mmol/L (-2-2); BLOOD GAS CARBOXYHEMOGLOBIN 1.8 % (0-4); BLOOD GAS HCO3 17 mmol/L (22-26); BLOOD GAS METHEMOGLOBIN 1.6 % (0-2); BLOOD GAS O2 HGB SATURATION 92 % (90-100); BLOOD GAS OXYGEN CONTENT 16.3 Vol % (12.0-20.0); BLOOD GAS PCO2 30 mmHg (38-42); BLOOD GAS PO2 76 mmHG (61-120); BLOOD GAS TOTAL HGB 12.6 G/DL (12.0-16.0); TEMP CORR TO 98.6
[2017-01-30 16:03] LABS: CRITICAL VALUE NO; DRAW SITE RT RADIAL; LITER FLOW 2 L/M; NUMBER OF ARTERIAL PUNCTURES 1; OXYGEN DEVICE NASAL CANNULA; STAT YES; ULNAR PULSE Y
[2017-01-30 16:17] LABS: PLATELET ESTIMATE SMEAR NORMAL (NORMAL); PLATELET MORPHOLOGY NORMAL (NORMAL); SCAN/DIFF AUTO DIFF CONFIRMED
[2017-01-30] MEDS ORDERED: OMEP40CA2 PO (16:26)
[2017-01-30] MEDS ORDERED: FLUC100T2 PO (16:30)
--- NOTE | 2017-01-30 16:40 | RADRPT ---
EXAM DATE/TIME: 01/30/2017 16:27 [facility] COMPARISON: No previous studies available for comparison. INDICATIONS : Altered mental status today. RADIATION DOSE: 56.35 CTDIvol (mGy) MEDICAL HISTORY : Cardiovascular disease. Hypertension. deep vein thrombosis SURGICAL HISTORY : None. ENCOUNTER: Initial ACUITY: 1 day PAIN SCALE: 0/10 LOCATION: Bilateral head TECHNIQUE: Multiple contiguous axial images were obtained of the head. Using automated exposure control and adj ustment of the mA and/or kV according to patient size, radiation dose was kept as low as reasonably a chievable to obtain optimal diagnostic quality images. FINDINGS: CEREBRUM: The ventricles are normal for age. No evidence of midline shift, mass lesion, hemorrhage or acute in farction. No extra-axial fluid collections are seen. POSTERIOR FOSSA: The cerebellum and brainstem are intact. The 4th ventricle is midline. The cerebellopontine angle i s unremarkable. EXTRACRANIAL: The visualized portion of the orbits is intact. SKULL: The calvaria is intact. No evidence of skull fracture. CONCLUSION: 1. No acute intracranial abnormalities. Sebaceous cyst in left occipital soft tissues. Morales Nunez MD on January 30, 2017 at 16:37 Board Certified Radiologist. This report was verified electronically.
[2017-01-30] MEDS ORDERED: CYCLOBENZAPRINE HCL 10 MG TAB PO PRN (17:15)
[2017-01-30] MEDS ORDERED: MAGNESIUM HYDROXIDE SUSP 30 ML CUP PO PRN (19:15)
[2017-01-30] MEDS ORDERED: SENNOSIDES 8.6 MG TAB PO PRN (19:15)
[2017-01-30] MEDS ORDERED: LACTULOSE SYRUP 20 GM/30 ML CUP PO PRN (19:15)
[2017-01-30] MEDS ORDERED: ACETAMINOPHEN 325 MG TAB PO PRN (19:15)
[2017-01-30] MEDS ORDERED: DEXTROSE 50% IN WATER 50 ML VIAL(D50) IV PRN (19:15)
[2017-01-30] MEDS ORDERED: SODIUM CHLORIDE 0.9% FLUSH 10 ML FLUSH IV FLUSH PRN (19:15)
[2017-01-30] MEDS ORDERED: GLUCAGON 1 MG/ML VIAL OTHER PRN (19:15)
[2017-01-30] MEDS ORDERED: NALOXONE HCL 0.4 MG/ML AMP IV PRN (19:15)
[2017-01-30] MEDS ORDERED: BISACODYL 10 MG SUPP RECTAL PRN (19:15)
[2017-01-30] MEDS ORDERED: INSULIN DETEMIR 100 UNITS/ML VIAL SQ SCH (19:30)
[2017-01-30] MEDS: DOCUSATE SODIUM 50 MG/SENNA 8.6 MG TAB PO SCH (20:30)
[2017-01-30] MEDS: ATORVASTATIN 20 MG TAB PO SCH (20:30)
[2017-01-30] MEDS: MONTELUKAST SODIUM 10 MG TAB PO SCH (20:30)
[2017-01-30] MEDS: PANTOPRAZOLE SOD 40 MG DELAYED RELEASE TAB PO SCH (20:30)
[2017-01-30] MEDS: FLUCONAZOLE 100 MG TAB PO SCH (20:30)
[2017-01-30] MEDS: APIXABAN 5 MG TABLET PO SCH (20:31)
[2017-01-30] MEDS: SODIUM CHLORIDE 0.9% FLUSH 10 ML FLUSH IV FLUSH SCH (20:31)
[2017-01-30] MEDS ORDERED: INSULIN NovoLIN REGULAR SUPPLEMENTAL SCALE SQ SCH (21:00)
[2017-01-30] MEDS ORDERED: INSULIN ASPART SUPPLEMENTAL SCALE SQ SCH (21:00)
[2017-01-30] MEDS ORDERED: RESP: ALBUTEROL 2.5 MG/IPRATROPIUM 0.5 MG NEB (PRN) NEB (21:00)
[2017-01-30] MEDS: SODIUM CHLOR 0.9% 1000 ML INJ 1,000 ML IV SCH (23:30)
[2017-01-30] MEDS: RESP: ALBUTEROL 2.5 MG/IPRATROPIUM 0.5 MG NEB (SCH) NEB (23:46)
[2017-01-31] VITALS (9 sets, daily range): BP systolic 113–157; BP diastolic 66–98; PULSE 103–115; RESP 16–20; TEMP 97.5–97.7; O2SAT 94–100
[2017-01-31] MEDS ORDERED: DEXTROSE 50% IN WATER 50 ML VIAL(D50) IV PRN (00:45)
[2017-01-31] MEDS ORDERED: GLUCAGON 1 MG/ML VIAL OTHER PRN (00:45)
[2017-01-31] MEDS: RESP: ALBUTEROL 2.5 MG/IPRATROPIUM 0.5 MG NEB (SCH) NEB ×5 (03:49→20:56)
[2017-01-31] MEDS: MEDIUM DOSE INSULIN NOVOLOG SUPPLEMENTAL SCALE SQ SCH ×4 (06:35→21:15)
[2017-01-31 06:59] LABS: AUTOMATED NEUTROPHIL # 13.6 TH/MM3 (1.8-7.7); BASOPHIL # 0.1 TH/MM3 (0-0.2); BASOPHIL % 0.7 % (0.0-2.0); HEMATOCRIT 32.7 % (39.0-51.0); LYMPH % 6.2 % (9.0-44.0); LYMPHOCYTE # 0.9 TH/MM3 (1.0-4.8); MEAN CELL VOLUME 79.5 FL (80.0-100.0); MEAN CORPUSCULAR HEMOGLOBIN 26.6 PG (27.0-34.0); MEAN CORPUSCULAR HGB CONC 33.4 % (32.0-36.0); MONO % 1.9 % (0.0-8.0); NEUT % 91.2 % (16.0-70.0); PLATELET COUNT 265 TH/MM3 (150-450); RED BLOOD COUNT 4.11 MIL/MM3 (4.50-5.90); RED CELL DISTRIBUTION WIDTH 29.2 % (11.6-17.2); WHITE BLOOD COUNT 14.9 TH/MM3 (4.0-11.0)
[2017-01-31 07:05] LABS: HEMO FLAGS AUTO DIFF
[2017-01-31 07:27] LABS: BICARBONATE 20.3 MEQ/L (21.0-32.0); INDIRECT BILIRUBIN 0.3 MG/DL (0.0-0.8); TOTAL BILIRUBIN ADULT 0.4 MG/DL (0.2-1.0)
[2017-01-31 07:28] LABS: POTASSIUM 3.9 MEQ/L (3.5-5.1)
[2017-01-31] MEDS ORDERED: INSULIN HUMAN REGULAR 1,000 UNITS/10 ML VIAL SQ SCH (08:00)
[2017-01-31 08:03] LABS: BANDS 10 % (0-6); METAMYELOCYTES 1 % (0-1); NEUTROPHIL # MANUAL DIFF 13.7 TH/MM3 (1.8-7.7); POLYS (SEG NEUTROPHILS) 81 % (16-70); WBC DIFF SAMPLE 100
[2017-01-31 08:04] LABS: SCAN/DIFF FINAL DIFF MANUAL
[2017-01-31] MEDS: FUROSEMIDE 40 MG TAB PO SCH (08:09)
[2017-01-31] MEDS: DOCUSATE SODIUM 50 MG/SENNA 8.6 MG TAB PO SCH ×2 (08:09→21:13)
[2017-01-31] MEDS: APIXABAN 5 MG TABLET PO SCH ×2 (08:09→21:13)
[2017-01-31] MEDS: DILTIAZEM-CD 180 MG CAP ER PO SCH (08:09)
[2017-01-31] MEDS: FLUCONAZOLE 100 MG TAB PO SCH ×2 (08:09→21:13)
[2017-01-31] MEDS: SODIUM CHLORIDE 0.9% FLUSH 10 ML FLUSH IV FLUSH SCH ×2 (08:09→21:00)
[2017-01-31] MEDS: SODIUM CHLOR 0.9% 1000 ML INJ 1,000 ML IV SCH ×2 (08:11→11:36)
--- NOTE | 2017-01-31 11:09 | MH ---
cc: MICHAEL BAGLEY MD DATE OF ADMISSION: 01/30/2017 CHIEF COMPLAINT Altered mental status. HISTORY OF PRESENT ILLNESS This is a 51-year-old very pleasant male with multiple medical problems including history of right leg DVT and history of pulmonary embolism twice, history of arthritis, asthma, anxiety, tachycardia, history of pneumonia, history of right hip surgery x2, history of hypertension, hyperlipidemia, depression, history of appendectomy, bilateral hip replacement, tonsillectomy and appendectomy. He came to the ER at [facility] with altered mental status and slow response. The patient has very severe asthma and is on long-term steroid therapy as well as inhalers. He sees cotton feeder, Dr. Mary Hernandez. The patient's called me in the office and said the patient had altered mental status and I told her to go to the [facility]. So the patient went there and was diagnosed with a blood sugar of 890. The patient had delayed answering and confusion at that time. I examined the patient this morning. The patient is awake, alert, oriented x4. Blood sugar dropped from 890-344. The patient also had pseudohyponatremia and renal insufficiency secondary to hyperglycemia and dehydration which has improved. The patient also had high LFTs which he had in the past and also beta-hydroxybutyrate was 0.79. Hemoglobin A1c is pending. The patient also had leukocytosis and anemia. Other than that nothing significant. PAST MEDICAL/SURGICAL HISTORY As dictated above. SOCIAL HISTORY Denies smoking, drinking, taking drugs. Lives at home. 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 FAMILY HISTORY Nothing significant. ALLERGIES 1. DEMEROL. 2. TETRACYCLINE. MEDICATIONS 1. Symbicort 160/4.5, two puff inhalation twice a day. 2. Carafate one gram p.o. daily. 3. Wilmot 5/325 q.4h. p.r.n. pain. 4. DuoNeb nebulization every four hours. 5. Ativan 0.5 mg every 8 hours p.r.n. anxiety. 6. Diltiazem 360 mg p.o. daily. 7. Furosemide 40 mg p.o. daily. 8. Eliquis 5 mg twice a day. 9. Lipitor 20 mg p.o. daily. 10. Diflucan 100 mg twice a day. 11. Singulair 10 mg daily. 12. Protonix 40 mg p.o. daily. REVIEW OF SYSTEMS Positive for shortness of breath, feeling weak and tired. All other review of systems are negative. PHYSICAL EXAMINATION GENERAL: This is a 51-year male sitting on the bed, not in acute distress. VITAL SIGNS: Temperature 97.7, heart rate 104, respiration 16, blood pressure 155/98. O2 saturation 98% on two liters nasal cannula. HEENT: Normocephalic, atraumatic. EOMI. PERRL. Oral mucosa moist. NECK: Supple. No visible thyromegaly or neck mass. Trachea central. CV: Regular rate and rhythm. LUNGS: There is bilateral wheezing. ABDOMEN: Soft, nontender. Bowel sounds audible. ABDOMEN: Distended. EXTREMITIES: No cyanosis or clubbing. Full range of motion of all extremities. +1 pitting edema. NEUROLOGIC: Awake, alert, oriented x4. No focal deficits. SKIN: Warm and dry. PSYCHIATRIC: The patient is cooperative. Mood and affect is normal. LABORATORY WBC count was 12.9, now 14.9. Hemoglobin was 12.4, now 10.9. Hematocrit was 32.7 which is low. MCV 79.5, MCH 26.6, both low. Platelet count 265, normal. ABGs done show pH of 7.38, PCO2 30, PO2 76, carboxyhemoglobin 1.8, hemoglobin 12.6, temperature 98.6. CMP was unremarkable except for sodium of 125, now 134, chloride 91 low, now 98, carbon oxide 20.4 low, now is 20.3, anion gap 16 high, blood glucose 890, now 344, creatinine was 1.71, now 0.69, AST 58, ALT 112, alkaline phosphatase 239, total protein 6.2 low, albumin 3.1 low, troponin-I less than 0.02, beta-hydroxybutyrate 0.79 high. IMAGING Chest x-ray was done shows an un-inflated examination with mild atelectasis at the right lung base. No acute cardiopulmonary process identified. CT brain was done and shows no acute intracranial abnormality. Sebaceous cyst in the left ossicle soft tissue. ASSESSMENT AND PLAN 1. This is a 51-year male who came to the ER diagnosed with altered mental status most likely secondary to hyperglycemia and dehydration. The patient's altered mental status is totally resolved. The patient is awake and oriented x4. 2. DKA. The patient had a blood sugar of 890, now decreased down to 344. The patient is on insulin sliding scale. Will monitor blood sugar closely. 3. History of COPD. Continue home medication. 4. History of anxiety. Continue with Ativan 0.5 mg p.o. q.8h. 5. History of hypertension. Continue with diltiazem. 6. History of tachycardia. Continue with diltiazem. 7. Leg edema. Continue furosemide 40 mg p.o. daily. 8. History of GERD. Continue with Carafate and Protonix 40 mg p.o. daily. 9. History of DVT and pulmonary embolism. Continue with Eliquis 5 mg twice a day. 10. History of hyperlipidemia. Continue with Lipitor 20 mg p.o. daily. 11. History of fungal infection of the right hip. Continue with Diflucan 100 mg twice a day. 12. DVT prophylaxis. The patient is on Eliquis. 13. GI prophylaxis with Protonix and Carafate. 14. Check CBC and CMP in the morning. 15. High LFTs. Will monitor. 16. Pseudohyponatremia, which is improving. 17. Leukocytosis. Will monitor. 18. Anemia. The patient has iron deficiency. I will start the patient on ferrous sulfate 325 mg p.o. t.i.d. 19. We are going to manage the patient on a daily basis and make recommendations on a daily basis. Michael Bagley MD EA/BLAYNE /10:19 AM /10:40 AM
[2017-01-31] MEDS: SUCRALFATE 1 GM TAB PO SCH ×2 (11:26→16:36)
[2017-01-31] MEDS: LORazepam 0.5 MG TAB PO SCH ×2 (11:27→17:28)
[2017-01-31] MEDS: BUDESONIDE-FORMOTEROL 160/4.5 MCG INHALER INH SCH ×2 (11:27→21:15)
[2017-01-31] MEDS: FERROUS SULFATE 325 MG (65 MG ELEMENTAL IRON) TAB PO SCH ×2 (11:31→21:13)
--- NOTE | 2017-01-31 14:23 | EKG ---
Date Performed: 01/30/2017 Time Performed: 14:32:46 PTAGE: 51 years EKG: SINUS TACHYCARDIA MINIMAL VOLTAGE CRITERIA FOR LVH, CONSIDER NORMAL VARIANT NONSPECIFIC ST & T-WAVE ABNORMALITY ABNORMAL RHYTHM ECG Compared to prior tracing no significant change PREVIOUS TRACING : 01/18/2017 07.39 DOCTOR: Félix Jaramillo Interpretating Date/Time 01/31/2017 14:21:05
[2017-01-31] MEDS: PANTOPRAZOLE SOD 40 MG DELAYED RELEASE TAB PO SCH (21:13)
[2017-01-31] MEDS: MONTELUKAST SODIUM 10 MG TAB PO SCH (21:13)
[2017-01-31] MEDS: ATORVASTATIN 20 MG TAB PO SCH (21:13)
[2017-02-01] VITALS (10 sets, daily range): BP systolic 120–142; BP diastolic 71–98; PULSE 98–117; RESP 20; TEMP 96.5–97.7; O2SAT 95–99
[2017-02-01] MEDS: RESP: ALBUTEROL 2.5 MG/IPRATROPIUM 0.5 MG NEB (SCH) NEB ×7 (00:37→23:53)
[2017-02-01] MEDS: LORazepam 0.5 MG TAB PO SCH ×3 (01:43→17:33)
[2017-02-01] MEDS: SODIUM CHLOR 0.9% 1000 ML INJ 1,000 ML IV SCH ×2 (05:30→16:31)
[2017-02-01] MEDS: SUCRALFATE 1 GM TAB PO SCH ×2 (06:48→16:26)
[2017-02-01] MEDS: MEDIUM DOSE INSULIN NOVOLOG SUPPLEMENTAL SCALE SQ SCH ×4 (06:52→20:56)
[2017-02-01] MEDS: BUDESONIDE-FORMOTEROL 160/4.5 MCG INHALER INH SCH ×2 (09:58→20:54)
[2017-02-01] MEDS: SODIUM CHLORIDE 0.9% FLUSH 10 ML FLUSH IV FLUSH SCH ×2 (09:59→20:54)
[2017-02-01] MEDS: FUROSEMIDE 40 MG TAB PO SCH (10:00)
[2017-02-01] MEDS: DILTIAZEM-CD 180 MG CAP ER PO SCH (10:00)
[2017-02-01] MEDS: DOCUSATE SODIUM 50 MG/SENNA 8.6 MG TAB PO SCH ×2 (10:00→20:53)
[2017-02-01] MEDS: FLUCONAZOLE 100 MG TAB PO SCH ×2 (10:00→20:53)
[2017-02-01] MEDS: FERROUS SULFATE 325 MG (65 MG ELEMENTAL IRON) TAB PO SCH ×2 (10:00→20:53)
[2017-02-01] MEDS: APIXABAN 5 MG TABLET PO SCH ×2 (10:01→20:53)
--- NOTE | 2017-02-01 10:58 | HHI.PR ---
Subjective History of Present Illness Patient feel better started on metformin 500 mg PO BID life educator consulted. Review of Systems Constitutional Constitutional: Fatigue, Weakness Pulmonary Respiratory: Shortness of Breath, Wheezing Vitals/Results Intake & Output 01/31/17 01/31/17 02/01/17 15:00 23:00 07:00 Intake Total 1612 ml 1187 ml Output Total 725 ml 1300 ml 825 ml Balance -725 ml 312 ml 362 ml Intake Oral 720 ml 480 ml IV Total 892 ml 707 ml Output Urine Total 725 ml 1300 ml 825 ml # Voids 2 # Bowel Movements 1 0 Vital Signs Vital Signs Date Time Temp Pulse Resp B/P Pulse Ox O2 Delivery O2 Flow Rate FiO2 02/01/17 08:00 97.3 101 20 133/98 98 02/01/17 07:41 97 Nasal Cannula 2.00 02/01/17 04:00 Nasal Cannula 2.00 02/01/17 04:00 97.7 98 20 120/81 97 02/01/17 00:38 99 Nasal Cannula 2.00 02/01/17 00:00 97.6 99 20 142/82 97 02/01/17 00:00 Nasal Cannula 2.00 01/31/17 20:56 99 Nasal Cannula 2.00 01/31/17 20:30 97.6 112 20 113/66 100 01/31/17 20:00 104 01/31/17 20:00 Nasal Cannula 2.00 01/31/17 15:15 97.7 111 16 138/91 97 01/31/17 11:15 97.6 115 16 157/97 98 CBC/BMP: 01/31/17 0616 01/31/17 0616 Physical Exam General General Appearance: Well Developed, Well Nourished, No Acute Distress, Comfortable Eyes Eye Exam: Pupils Equal, Pupils Reactive, Sclera White, Extraocular Movement Intact Throat Throat Exam: Oral Mucosa [place] & Moist, Oral Pharynx Normal Neck Neck Exam: Neck Supple, Trachea Midline Pulmonary Resp Remarks Bilateral wheezing. Cardiology CV Exam: Regular, Normal Sinus Rhythm Gastrointestinal/Abdomen GI Exam: Soft, Non-Tender, Bowel Sounds Present Musculoskeletal MS Exam: Normal Gait, Normal Tone, Good Strength Integumentary Skin Exam: Clear, Warm, Dry, Intact Extremeties Extremities Exam: Pitting Edema Neurologic Neuro Exam: Alert, Awake, Oriented, Speech Clear, Moving All Extremities, No Focal Deficits VTE Prophylaxis VTE Prophylaxis Meds: Heparin PUD Prophylasis PUD Prophylaxis: Protonix Assessment/Plan Assessment/Plan ASSESSMENT AND PLAN 1. This is a 51-year male who came to the ER diagnosed with altered mental status most likely secondary to hyperglycemia and dehydration. The patient's altered mental status is totally resolved. The patient is awake and oriented x4. 2. DKA. The patient had a blood sugar of 890, now decreased down to 344. The patient is on insulin sliding scale. Added metformin 500 mg PO BID. Will monitor blood sugar closely. 3. History of COPD. Continue home medication. 4. History of anxiety. Continue with Ativan 0.5 mg p.o. q.8h. 5. History of hypertension. Continue with diltiazem. 6. History of tachycardia. Continue with diltiazem. 7. Leg edema. Continue furosemide 40 mg p.o. daily. 8. History of GERD. Continue with Carafate and Protonix 40 mg p.o. daily. 9. History of DVT and pulmonary embolism. Continue with Eliquis 5 mg twice a day. 10. History of hyperlipidemia. Continue with Lipitor 20 mg p.o. daily. 11. History of fungal infection of the right hip. Continue with Diflucan 100 mg twice a day. 12. DVT prophylaxis. The patient is on Eliquis. 13. GI prophylaxis with Protonix and Carafate. 14. High LFTs. Will monitor. 15. Pseudohyponatremia, which is improving. 16. Leukocytosis. Will monitor. 17. Anemia. The patient has iron deficiency. The patient on ferrous sulfate 325 mg p.o. t.i.d. 18. Check CBC and CMP in the morning. We are going to manage the patient on a daily basis and make recommendations on a daily basis. Discussed Condition with: Patient Myron Woodward MD February 01, 2017 10:58
[2017-02-01] MEDS: metFORMIN HCL 500 MG TAB PO SCH ×2 (12:17→17:33)
[2017-02-01] MEDS: MONTELUKAST SODIUM 10 MG TAB PO SCH (20:53)
[2017-02-01] MEDS: ATORVASTATIN 20 MG TAB PO SCH (20:53)
[2017-02-01] MEDS: PANTOPRAZOLE SOD 40 MG DELAYED RELEASE TAB PO SCH (20:54)
[2017-02-02] VITALS (9 sets, daily range): BP systolic 118–148; BP diastolic 59–98; PULSE 104–115; RESP 18–20; TEMP 97.5–97.7; O2SAT 93–98
[2017-02-02] MEDS: SODIUM CHLOR 0.9% 1000 ML INJ 1,000 ML IV SCH ×3 (01:15→21:02)
[2017-02-02] MEDS: LORazepam 0.5 MG TAB PO SCH ×3 (01:15→18:21)
[2017-02-02] MEDS: RESP: ALBUTEROL 2.5 MG/IPRATROPIUM 0.5 MG NEB (SCH) NEB ×5 (03:50→20:22)
[2017-02-02] MEDS: SUCRALFATE 1 GM TAB PO SCH ×2 (06:25→16:46)
[2017-02-02] MEDS: MEDIUM DOSE INSULIN NOVOLOG SUPPLEMENTAL SCALE SQ SCH ×4 (07:06→21:05)
[2017-02-02 07:14] LABS: AUTOMATED NEUTROPHIL # 7.5 TH/MM3 (1.8-7.7); BASOPHIL % 0.3 % (0.0-2.0); EOSINOPHIL % 0.2 % (0.0-4.0); HEMATOCRIT 31.7 % (39.0-51.0); LYMPH % 11.7 % (9.0-44.0); LYMPHOCYTE # 1.1 TH/MM3 (1.0-4.8); MEAN CORPUSCULAR HEMOGLOBIN 26.3 PG (27.0-34.0); MEAN CORPUSCULAR HGB CONC 32.9 % (32.0-36.0); MONO % 5.2 % (0.0-8.0); NEUT % 82.6 % (16.0-70.0); PLATELET COUNT 211 TH/MM3 (150-450); RED BLOOD COUNT 3.97 MIL/MM3 (4.50-5.90); RED CELL DISTRIBUTION WIDTH 29.7 % (11.6-17.2)
[2017-02-02 07:17] LABS: HEMO FLAGS AUTO DIFF
[2017-02-02 07:46] LABS: ALKALINE PHOSPHATASE 191 U/L (45-117); ALT (GPT) 89 U/L (12-78); ANION GAP 12 MEQ/L (5-15); AST (GOT) 51 U/L (15-37); BICARBONATE 26.1 MEQ/L (21.0-32.0); BLOOD UREA NITROGEN 5 MG/DL (7-18); CHLORIDE 102 MEQ/L (98-107); GLOMERULAR FILTRATION RATE 144 ML/MIN (>89); SODIUM (NA) 140 MEQ/L (136-145); TOTAL BILIRUBIN ADULT 0.2 MG/DL (0.2-1.0)
[2017-02-02 07:49] LABS: POTASSIUM 2.8 MEQ/L (3.5-5.1)
[2017-02-02] MEDS: FLUCONAZOLE 100 MG TAB PO SCH ×2 (09:12→21:01)
[2017-02-02] MEDS: DOCUSATE SODIUM 50 MG/SENNA 8.6 MG TAB PO SCH ×2 (09:13→21:00)
[2017-02-02] MEDS: DILTIAZEM-CD 180 MG CAP ER PO SCH (09:13)
[2017-02-02] MEDS: FERROUS SULFATE 325 MG (65 MG ELEMENTAL IRON) TAB PO SCH ×2 (09:13→21:02)
[2017-02-02] MEDS: metFORMIN HCL 500 MG TAB PO SCH ×2 (09:13→18:20)
[2017-02-02] MEDS: SODIUM CHLORIDE 0.9% FLUSH 10 ML FLUSH IV FLUSH SCH ×2 (09:13→21:01)
[2017-02-02] MEDS: APIXABAN 5 MG TABLET PO SCH ×2 (09:13→21:01)
[2017-02-02] MEDS: BUDESONIDE-FORMOTEROL 160/4.5 MCG INHALER INH SCH ×2 (09:14→21:00)
[2017-02-02] MEDS: ACETAMINOPHEN/HYDROcodone 325 MG/5 MG TAB PO PRN ×2 (09:20→14:20)
[2017-02-02 10:22] LABS: BANDS 8 % (0-6); BASOPHILS 1 % (0-2); CORRECTED NUCLEATED RBC 1 /100 WBC (0-0); MYELOCYTES 5 % (0-0); NEUTROPHIL # MANUAL DIFF 7.9 TH/MM3 (1.8-7.7); POLYS (SEG NEUTROPHILS) 74 % (16-70); PROMYELOCYTES 1 % (0-0); WBC DIFF SAMPLE 100
--- NOTE | 2017-02-02 10:22 | HHI.PR ---
Subjective History of Present Illness Patient feel better on metformin 500 mg PO BID blood glucose getting better low potassium will replace. 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 of Systems Constitutional Constitutional: Fatigue, Weakness Pulmonary Respiratory: Shortness of Breath, Wheezing Vitals/Results Intake & Output 02/01/17 02/01/17 02/02/17 15:00 23:00 07:00 Intake Total 480 ml 1827 ml 1693 ml Output Total 1100 ml 2450 ml 1200 ml Balance -620 ml -623 ml 493 ml Intake Oral 480 ml 1000 ml 800 ml IV Total 827 ml 893 ml Output Urine Total 1100 ml 2450 ml 1200 ml # Bowel Movements 0 0 Vital Signs Vital Signs Date Time Temp Pulse Resp B/P Pulse Ox O2 Delivery O2 Flow Rate FiO2 02/02/17 08:21 95 Nasal Cannula 2.00 02/02/17 08:00 97.5 106 20 135/93 96 02/02/17 04:00 Nasal Cannula 2.00 02/02/17 04:00 97.5 106 20 122/62 93 02/02/17 00:00 97.7 111 20 138/84 96 02/02/17 00:00 Nasal Cannula 2.00 02/01/17 23:53 98 Nasal Cannula 2.00 02/01/17 20:10 117 02/01/17 20:00 97.7 117 20 132/71 97 02/01/17 20:00 Nasal Cannula 2.00 02/01/17 16:00 96.5 105 20 137/73 95 02/01/17 12:00 97.3 110 20 141/95 99 CBC/BMP: 02/02/17 0539 02/02/17 0539 Lab Results Laboratory Tests Test 02/02/17 05:39 White Blood Count 9.0 TH/MM3 Red Blood Count 3.97 MIL/MM3 Hemoglobin 10.4 GM/DL Hematocrit 31.7 % Mean Corpuscular Volume 80.0 FL Mean Corpuscular Hemoglobin 26.3 PG Mean Corpuscular Hemoglobin 32.9 % Concent Red Cell Distribution Width 29.7 % Platelet Count 211 TH/MM3 Mean Platelet Volume 7.9 FL Neutrophils (%) (Auto) 82.6 % Lymphocytes (%) (Auto) 11.7 % Monocytes (%) (Auto) 5.2 % Eosinophils (%) (Auto) 0.2 % Basophils (%) (Auto) 0.3 % Neutrophils # (Auto) 7.5 TH/MM3 Lymphocytes # (Auto) 1.1 TH/MM3 Monocytes # (Auto) 0.5 TH/MM3 Eosinophils # (Auto) 0.0 TH/MM3 Basophils # (Auto) 0.0 TH/MM3 CBC Comment AUTO DIFF Sodium Level 140 MEQ/L Potassium Level 2.8 MEQ/L Chloride Level 102 MEQ/L Carbon Dioxide Level 26.1 MEQ/L Anion Gap 12 MEQ/L Blood Urea Nitrogen 5 MG/DL Creatinine 0.59 MG/DL Estimat Glomerular Filtration 144 ML/MIN Rate Random Glucose 178 MG/DL Calcium Level 8.7 MG/DL Total Bilirubin 0.2 MG/DL Aspartate Amino Transf 51 U/L (AST/SGOT) Alanine Aminotransferase 89 U/L (ALT/SGPT) Alkaline Phosphatase 191 U/L Total Protein 5.5 GM/DL Albumin 2.8 GM/DL Physical Exam General General Appearance: Well Developed, Well Nourished, No Acute Distress, Comfortable Eyes Eye Exam: Pupils Equal, Pupils Reactive, Sclera White, Extraocular Movement Intact Throat Throat Exam: Oral Mucosa [place] & Moist, Oral Pharynx Normal Neck Neck Exam: Neck Supple, Trachea Midline Pulmonary Resp Remarks Bilateral wheezing. Cardiology CV Exam: Regular, Normal Sinus Rhythm Gastrointestinal/Abdomen GI Exam: Soft, Non-Tender, Bowel Sounds Present Musculoskeletal MS Exam: Normal Gait, Normal Tone, Good Strength Integumentary Skin Exam: Clear, Warm, Dry, Intact Extremeties Extremities Exam: Pitting Edema Neurologic Neuro Exam: Alert, Awake, Oriented, Speech Clear, Moving All Extremities, No Focal Deficits VTE Prophylaxis VTE Prophylaxis Meds: Heparin PUD Prophylasis PUD Prophylaxis: Protonix Assessment/Plan Assessment/Plan ASSESSMENT AND PLAN 1. This is a 51-year male who came to the ER diagnosed with altered mental status most likely secondary to hyperglycemia and dehydration. The patient's altered mental status is totally resolved. The patient is awake and oriented x4. 2. DKA. The patient had a blood sugar of 890, now decreased down to 344. The patient is on insulin sliding scale. Added metformin 500 mg PO BID. Will monitor blood sugar closely. 3. History of COPD. Continue home medication. 4. History of anxiety. Continue with Ativan 0.5 mg p.o. q.8h. 5. History of hypertension. Continue with diltiazem. 6. History of tachycardia. Continue with diltiazem. 7. Leg edema. Continue furosemide 40 mg p.o. daily. 8. History of GERD. Continue with Carafate and Protonix 40 mg p.o. daily. 9. History of DVT and pulmonary embolism. Continue with Eliquis 5 mg twice a day. 10. History of hyperlipidemia. Continue with Lipitor 20 mg p.o. daily. 11. History of fungal infection of the right hip. Continue with Diflucan 100 mg twice a day. 12. DVT prophylaxis. The patient is on Eliquis. 13. GI prophylaxis with Protonix and Carafate. 14. High LFTs. Will monitor. 15. Pseudohyponatremia, which is improving. 16. Leukocytosis. Will monitor. 17. Anemia. The patient has iron deficiency. The patient on ferrous sulfate 325 mg p.o. t.i.d. 18. Hypokalemia will replace potassium and monitor. Check CBC and CMP in the morning. We are going to manage the patient on a daily basis and make recommendations on a daily basis. Discussed Condition with: Patient Myron Woodward MD February 02, 2017 10:22
[2017-02-02 10:24] LABS: PLATELET ESTIMATE SMEAR NORMAL (NORMAL); PLATELET MORPHOLOGY NORMAL (NORMAL); SCAN/DIFF FINAL DIFF MANUAL
[2017-02-02] MEDS ORDERED: METF500 PO (10:27)
[2017-02-02] MEDS ORDERED: FERR325T20 PO (10:27)
[2017-02-02] MEDS ORDERED: POTASSIUM CHLORIDE 10 MEQ CONTROLLED RELEASE TAB PO ONE (10:30)
--- NOTE | 2017-02-02 10:30 | HHI.FF ---
Face to Face Verification Diagnosis: (1) Contusion of right leg (2) Chronic leg pain (3) Thrombocytopenia (4) Acute right hip pain (5) hematoma vs PE (6) Sepsis (7) Abscess of hip, right (8) Acute hypercapnic respiratory failure (9) Septic arthritis (10) Respiratory failure, acute (11) Chronic obstructive pulmonary disease (12) Septic hip Physical Therapy Order: Evaluate and Treat, Improve ambulation Occupational Therapy Order: Evaluate and Treat, Gross motor coordination Home Health Nursing Order: Medical education Diabetic education Medication education-adverse effect Home Health Aide Order: To Assist In: Bathing and personal care, geophysical laboratory chief and meal prep I have seen patient Philip Plaza Sr Fariba on 02/02/17. My clinical findings support the need for the requested home health care services because: Ltd mobility - disease progression Patient has SOB Deconditioned w/ increased weakness Limited ability to care for self High risk of falls I certify that my clinical findings support that this patient is homebound because: Unsteady gait/balance Unsafe to leave home unassisted Unable to use public transportation Myron Woodward MD February 02, 2017 10:30
[2017-02-02] MEDS: FUROSEMIDE 40 MG TAB PO SCH (12:11)
[2017-02-02 12:32] LABS: HEMOGLOBIN A1a 1.5 %; HEMOGLOBIN A1b 3.1 %; HEMOGLOBIN Ao 76.8 %; HEMOGLOBIN P3 7.1 %
[2017-02-02] MEDS: ONDANSETRON HCL 4 MG/2 ML VIAL IVP PRN (19:35)
[2017-02-02] MEDS: PANTOPRAZOLE SOD 40 MG DELAYED RELEASE TAB PO SCH (21:01)
[2017-02-02] MEDS: MONTELUKAST SODIUM 10 MG TAB PO SCH (21:01)
[2017-02-02] MEDS: ATORVASTATIN 20 MG TAB PO SCH (21:01)
[2017-02-03] VITALS (9 sets, daily range): BP systolic 113–140; BP diastolic 75–97; PULSE 103–121; RESP 20–28; TEMP 97.3–97.9; O2SAT 96–99
[2017-02-03] MEDS: RESP: ALBUTEROL 2.5 MG/IPRATROPIUM 0.5 MG NEB (SCH) NEB ×7 (00:11→23:31)
[2017-02-03] MEDS: LORazepam 0.5 MG TAB PO SCH ×3 (01:24→17:15)
[2017-02-03] MEDS: SUCRALFATE 1 GM TAB PO SCH ×2 (06:21→17:15)
[2017-02-03] MEDS: MEDIUM DOSE INSULIN NOVOLOG SUPPLEMENTAL SCALE SQ SCH ×4 (06:58→20:54)
[2017-02-03] MEDS: FLUCONAZOLE 100 MG TAB PO SCH ×2 (08:34→20:52)
[2017-02-03] MEDS: metFORMIN HCL 500 MG TAB PO SCH ×2 (08:34→17:15)
[2017-02-03] MEDS: FERROUS SULFATE 325 MG (65 MG ELEMENTAL IRON) TAB PO SCH ×2 (08:34→20:53)
[2017-02-03] MEDS: FUROSEMIDE 40 MG TAB PO SCH (08:34)
[2017-02-03] MEDS: APIXABAN 5 MG TABLET PO SCH ×2 (08:34→20:53)
[2017-02-03] MEDS: DILTIAZEM-CD 180 MG CAP ER PO SCH (08:34)
[2017-02-03] MEDS: DOCUSATE SODIUM 50 MG/SENNA 8.6 MG TAB PO SCH ×2 (08:34→20:53)
[2017-02-03] MEDS: BUDESONIDE-FORMOTEROL 160/4.5 MCG INHALER INH SCH ×2 (08:35→20:52)
[2017-02-03] MEDS: SODIUM CHLOR 0.9% 1000 ML INJ 1,000 ML IV SCH ×2 (08:36→17:16)
[2017-02-03] MEDS: SODIUM CHLORIDE 0.9% FLUSH 10 ML FLUSH IV FLUSH SCH ×2 (08:36→20:53)
--- NOTE | 2017-02-03 09:00 | HHI.PR ---
Subjective History of Present Illness Patient feel better on metformin 500 mg PO BID blood glucose getting better low potassium will replace c/o UTI Symptoms check urine and start rocephin 1 gm IV Daily. Review of Systems Constitutional Constitutional: Fatigue, Weakness Pulmonary Respiratory: Shortness of Breath, Wheezing Vitals/Results Intake & Output 02/02/17 02/02/17 02/03/17 15:00 23:00 07:00 Intake Total 720 ml 1373 ml 300 ml Output Total 1175 ml 1425 ml 500 ml Balance -455 ml -52 ml -200 ml Intake Oral 720 ml 500 ml 300 ml IV Total 873 ml Output Urine Total 1175 ml 1425 ml 500 ml # Bowel Movements 1 Vital Signs Vital Signs Date Time Temp Pulse Resp B/P Pulse Ox O2 Delivery O2 Flow Rate FiO2 02/03/17 08:03 96 21 02/03/17 08:00 97.5 109 20 140/97 98 02/03/17 03:40 97.3 103 28 113/75 98 02/03/17 03:37 98 Nasal Cannula 2.00 02/03/17 00:13 98 Nasal Cannula 2.00 02/03/17 00:00 Nasal Cannula 2.00 02/02/17 23:50 97.5 106 20 134/97 98 02/02/17 20:24 98 Nasal Cannula 2.00 02/02/17 20:15 97.7 104 18 148/98 96 02/02/17 20:00 Nasal Cannula 2.00 02/02/17 16:00 97.5 109 20 118/59 96 02/02/17 12:00 97.7 115 20 124/79 95 02/02/17 10:30 20 CBC/BMP: 02/02/17 0539 02/02/17 0539 Physical Exam General General Appearance: Well Developed, Well Nourished, No Acute Distress, Comfortable Eyes Eye Exam: Pupils Equal, Pupils Reactive, Sclera White, Extraocular Movement Intact Throat Throat Exam: Oral Mucosa [place] & Moist, Oral Pharynx Normal Neck Neck Exam: Neck Supple, Trachea Midline Pulmonary Resp Remarks Bilateral wheezing. Cardiology CV Exam: Regular, Normal Sinus Rhythm Gastrointestinal/Abdomen GI Exam: Soft, Non-Tender, Bowel Sounds Present Musculoskeletal MS Exam: Normal Gait, Normal Tone, Good Strength Integumentary Skin Exam: Clear, Warm, Dry, Intact Extremeties Extremities Exam: Pitting Edema Neurologic Neuro Exam: Alert, Awake, Oriented, Speech Clear, Moving All Extremities, No Focal Deficits VTE Prophylaxis VTE Prophylaxis Meds: Heparin PUD Prophylasis PUD Prophylaxis: Protonix Assessment/Plan Assessment/Plan ASSESSMENT AND PLAN 1. This is a 51-year male who came to the ER diagnosed with altered mental status most likely secondary to hyperglycemia and dehydration. The patient's altered mental status is totally resolved. The patient is awake and oriented x4. 2. DKA. The patient had a blood sugar of 890, now decreased down to 344. The patient is on insulin sliding scale. Added metformin 500 mg PO BID. Will monitor blood sugar closely. 3. History of COPD. Continue home medication. 4. History of anxiety. Continue with Ativan 0.5 mg p.o. q.8h. 5. History of hypertension. Continue with diltiazem. 6. History of tachycardia. Continue with diltiazem. 7. Leg edema. Continue furosemide 40 mg p.o. daily. 8. History of GERD. Continue with Carafate and Protonix 40 mg p.o. daily. 9. History of DVT and pulmonary embolism. Continue with Eliquis 5 mg twice a day. 10. History of hyperlipidemia. Continue with Lipitor 20 mg p.o. daily. 11. History of fungal infection of the right hip. Continue with Diflucan 100 mg twice a day. 12. DVT prophylaxis. The patient is on Eliquis. 13. GI prophylaxis with Protonix and Carafate. 14. High LFTs. Will monitor. 15. Pseudohyponatremia, which is improving. 16. Leukocytosis. Will monitor. 17. Anemia. The patient has iron deficiency. The patient on ferrous sulfate 325 mg p.o. t.i.d. 18. Hypokalemia will replace potassium and monitor. 19. UTI Symptoms check urine and start rocephin 1 gm IV Daily. Check CBC and CMP in the morning. We are going to manage the patient on a daily basis and make recommendations on a daily basis. Discussed Condition with: Patient Myron Woodward MD February 03, 2017 09:00
[2017-02-03 09:16] LABS: AUTOMATED NEUTROPHIL # 5.6 TH/MM3 (1.8-7.7); BASOPHIL # 0.1 TH/MM3 (0-0.2); BASOPHIL % 0.7 % (0.0-2.0); EOSINOPHIL % 0.1 % (0.0-4.0); HEMATOCRIT 34.3 % (39.0-51.0); LYMPH % 15.1 % (9.0-44.0); LYMPHOCYTE # 1.1 TH/MM3 (1.0-4.8); MEAN CELL VOLUME 80.3 FL (80.0-100.0); MEAN CORPUSCULAR HEMOGLOBIN 26.6 PG (27.0-34.0); MEAN CORPUSCULAR HGB CONC 33.1 % (32.0-36.0); MONO % 5.7 % (0.0-8.0); NEUT % 78.4 % (16.0-70.0); PLATELET COUNT 229 TH/MM3 (150-450); RED BLOOD COUNT 4.26 MIL/MM3 (4.50-5.90); WHITE BLOOD COUNT 7.1 TH/MM3 (4.0-11.0)
[2017-02-03 09:17] LABS: HEMO FLAGS AUTO DIFF
[2017-02-03 09:25] LABS: ALKALINE PHOSPHATASE 218 U/L (45-117); ALT (GPT) 119 U/L (12-78); ANION GAP 11 MEQ/L (5-15); AST (GOT) 74 U/L (15-37); BICARBONATE 23.5 MEQ/L (21.0-32.0); BLOOD UREA NITROGEN 5 MG/DL (7-18); CHLORIDE 104 MEQ/L (98-107); GLOMERULAR FILTRATION RATE 136 ML/MIN (>89); POTASSIUM 3.4 MEQ/L (3.5-5.1); SODIUM (NA) 138 MEQ/L (136-145); TOTAL BILIRUBIN ADULT 0.3 MG/DL (0.2-1.0)
[2017-02-03 09:37] LABS: BLOOD, URINE NEG (NEG); GLUCOSE,URINE 150 mg/dL (NEG); KETONE, URINE NEG (NEG); NITRITE,URINE NEG (NEG); PH, URINE 6.5 (5.0-8.5); URINE COLOR LIGHT-YELLOW (YELLW/STRAW)
[2017-02-03 09:39] LABS: COMMENT (UR) CULT NOT INDICATED; CULTURE IF INDICATED CULT NOT INDICATED
[2017-02-03] MEDS: cefTRIAXone INJ 1,000 MG in SODIUM CHLORIDE 0.9% INJ 100 ML IV SCH (10:29)
[2017-02-03 10:36] LABS: BANDS 5 % (0-6); METAMYELOCYTES 4 % (0-1); MYELOCYTES 3 % (0-0); PLATELET ESTIMATE SMEAR NORMAL (NORMAL); PLATELET MORPHOLOGY NORMAL (NORMAL); POLYS (SEG NEUTROPHILS) 72 % (16-70); SCAN/DIFF FINAL DIFF MANUAL; WBC DIFF SAMPLE 100
[2017-02-03] MEDS ORDERED: POTASSIUM CHLORIDE 20 MEQ CONTROLLED RELEASE TAB PO ONE (12:00)
[2017-02-03] MEDS: MONTELUKAST SODIUM 10 MG TAB PO SCH (20:53)
[2017-02-03] MEDS: PANTOPRAZOLE SOD 40 MG DELAYED RELEASE TAB PO SCH (20:53)
[2017-02-03] MEDS: ATORVASTATIN 20 MG TAB PO SCH (20:53)
[2017-02-04] VITALS (10 sets, daily range): BP systolic 126–147; BP diastolic 83–99; PULSE 105–120; RESP 18–20; TEMP 97.3–97.9; O2SAT 96–99
[2017-02-04] MEDS: LORazepam 0.5 MG TAB PO SCH ×3 (01:23→16:44)
[2017-02-04] MEDS: RESP: ALBUTEROL 2.5 MG/IPRATROPIUM 0.5 MG NEB (PRN) NEB ×2 (03:50→09:02)
[2017-02-04] MEDS: SUCRALFATE 1 GM TAB PO SCH ×2 (06:03→16:44)
[2017-02-04] MEDS: SODIUM CHLOR 0.9% 1000 ML INJ 1,000 ML IV SCH ×3 (06:04→23:30)
[2017-02-04] MEDS: MEDIUM DOSE INSULIN NOVOLOG SUPPLEMENTAL SCALE SQ SCH ×4 (06:54→22:09)
[2017-02-04 07:38] LABS: AUTOMATED NEUTROPHIL # 4.4 TH/MM3 (1.8-7.7); BASOPHIL % 0.5 % (0.0-2.0); EOSINOPHIL % 0.2 % (0.0-4.0); HEMATOCRIT 34.2 % (39.0-51.0); LYMPH % 16.6 % (9.0-44.0); MEAN CELL VOLUME 81.2 FL (80.0-100.0); MEAN CORPUSCULAR HEMOGLOBIN 25.9 PG (27.0-34.0); MEAN CORPUSCULAR HGB CONC 31.9 % (32.0-36.0); MONO % 7.4 % (0.0-8.0); NEUT % 75.3 % (16.0-70.0); PLATELET COUNT 210 TH/MM3 (150-450); RED BLOOD COUNT 4.21 MIL/MM3 (4.50-5.90); RED CELL DISTRIBUTION WIDTH 29.3 % (11.6-17.2); WHITE BLOOD COUNT 5.8 TH/MM3 (4.0-11.0)
[2017-02-04 07:51] LABS: HEMO FLAGS AUTO DIFF
[2017-02-04 07:53] LABS: ALT (GPT) 109 U/L (12-78); ANION GAP 9 MEQ/L (5-15); AST (GOT) 66 U/L (15-37); BICARBONATE 24.6 MEQ/L (21.0-32.0); BLOOD UREA NITROGEN 5 MG/DL (7-18); CHLORIDE 105 MEQ/L (98-107); GLOMERULAR FILTRATION RATE 139 ML/MIN (>89); POTASSIUM 3.4 MEQ/L (3.5-5.1); SODIUM (NA) 139 MEQ/L (136-145)
[2017-02-04 07:55] LABS: ALKALINE PHOSPHATASE 190 U/L (45-117); TOTAL BILIRUBIN ADULT 0.2 MG/DL (0.2-1.0)
--- NOTE | 2017-02-04 08:27 | HHI.PR ---
Subjective History of Present Illness Patient feel better on metformin 500 mg PO BID blood glucose getting better low potassium will replace c/o burning/ painful urination checked urine and start pyridium for 2 days and continue with rocephin 1 gm IV Daily. Review of Systems Constitutional Constitutional: Fatigue, Weakness Pulmonary Respiratory: Shortness of Breath, Wheezing Vitals/Results Intake & Output 02/03/17 02/03/17 02/04/17 15:00 23:00 07:00 Intake Total 2450 ml 1032 ml 837 ml Output Total 1700 ml 1550 ml Balance 2450 ml -668 ml -713 ml Intake Oral 720 ml 240 ml 0 ml IV Total 1730 ml 792 ml 837 ml Output Urine Total 1700 ml 1550 ml # Bowel Movements 0 0 Vital Signs Vital Signs Date Time Temp Pulse Resp B/P Pulse Ox O2 Delivery O2 Flow Rate FiO2 02/04/17 08:00 97.3 108 20 127/95 96 02/04/17 04:00 97.6 111 20 126/86 96 02/04/17 04:00 Nasal Cannula 2.00 02/04/17 00:00 97.7 112 18 129/87 97 02/04/17 00:00 Nasal Cannula 2.00 02/03/17 20:00 Nasal Cannula 2.00 02/03/17 20:00 119 02/03/17 20:00 97.9 118 20 120/87 98 02/03/17 19:19 99 Nasal Cannula 2.00 02/03/17 16:00 97.7 120 20 120/89 97 02/03/17 16:00 Nasal Cannula 2.00 02/03/17 12:03 97.9 121 20 135/83 96 CBC/BMP: 02/04/17 0556 02/04/17 0556 Lab Results Laboratory Tests Test 02/03/17 02/03/17 02/04/17 08:50 09:12 05:56 White Blood Count 7.1 TH/MM3 5.8 TH/MM3 Red Blood Count 4.26 MIL/MM3 4.21 MIL/MM3 Hemoglobin 11.4 GM/DL 10.9 GM/DL Hematocrit 34.3 % 34.2 % Mean Corpuscular Volume 80.3 FL 81.2 FL Mean Corpuscular Hemoglobin 26.6 PG 25.9 PG Mean Corpuscular Hemoglobin 33.1 % 31.9 % Concent Red Cell Distribution Width 29.0 % 29.3 % Platelet Count 229 TH/MM3 210 TH/MM3 Mean Platelet Volume 7.7 FL 8.2 FL Neutrophils (%) (Auto) 78.4 % 75.3 % Lymphocytes (%) (Auto) 15.1 % 16.6 % Monocytes (%) (Auto) 5.7 % 7.4 % Eosinophils (%) (Auto) 0.1 % 0.2 % Basophils (%) (Auto) 0.7 % 0.5 % Neutrophils # (Auto) 5.6 TH/MM3 4.4 TH/MM3 Lymphocytes # (Auto) 1.1 TH/MM3 1.0 TH/MM3 Monocytes # (Auto) 0.4 TH/MM3 0.4 TH/MM3 Eosinophils # (Auto) 0.0 TH/MM3 0.0 TH/MM3 Basophils # (Auto) 0.1 TH/MM3 0.0 TH/MM3 CBC Comment AUTO DIFF AUTO DIFF Differential Total Cells 100 Counted Neutrophils % (Manual) 72 % Band Neutrophils % 5 % Lymphocytes % 8 % Monocytes % 8 % Neutrophils # (Manual) 6.0 TH/MM3 Metamyelocytes 4 % Myelocytes 3 % Differential Comment FINAL DIFF MANUAL Platelet Estimate NORMAL Platelet Morphology Comment NORMAL Sodium Level 138 MEQ/L 139 MEQ/L Potassium Level 3.4 MEQ/L 3.4 MEQ/L Chloride Level 104 MEQ/L 105 MEQ/L Carbon Dioxide Level 23.5 MEQ/L 24.6 MEQ/L Anion Gap 11 MEQ/L 9 MEQ/L Blood Urea Nitrogen 5 MG/DL 5 MG/DL Creatinine 0.62 MG/DL 0.61 MG/DL Estimat Glomerular Filtration 136 ML/MIN 139 ML/MIN Rate Random Glucose 158 MG/DL 156 MG/DL Calcium Level 9.1 MG/DL 9.1 MG/DL Total Bilirubin 0.3 MG/DL 0.2 MG/DL Aspartate Amino Transf 74 U/L 66 U/L (AST/SGOT) Alanine Aminotransferase 119 U/L 109 U/L (ALT/SGPT) Alkaline Phosphatase 218 U/L 190 U/L Total Protein 6.2 GM/DL 5.7 GM/DL Albumin 3.1 GM/DL 2.8 GM/DL Urine Color LIGHT-YELLOW Urine Turbidity CLEAR Urine pH 6.5 Urine Specific [place] 1.008 Urine Protein NEG mg/dL Urine Glucose (UA) 150 mg/dL Urine Ketones NEG mg/dL Urine Occult Blood NEG Urine Nitrite NEG Urine Bilirubin NEG Urine Urobilinogen LESS THAN 2.0 MG/DL Urine Leukocyte Esterase NEG Urine RBC LESS THAN 1 /hpf Urine WBC LESS THAN 1 /hpf Microscopic Urinalysis Comment CULT NOT INDICATED Physical Exam General General Appearance: Well Developed, Well Nourished, No Acute Distress, Comfortable Eyes Eye Exam: Pupils Equal, Pupils Reactive, Sclera White, Extraocular Movement Intact Throat Throat Exam: Oral Mucosa [place] & Moist, Oral Pharynx Normal Neck Neck Exam: Neck Supple, Trachea Midline Pulmonary Resp Remarks Bilateral wheezing. Cardiology CV Exam: Regular, Normal Sinus Rhythm Gastrointestinal/Abdomen GI Exam: Soft, Non-Tender, Bowel Sounds Present Musculoskeletal MS Exam: Normal Gait, Normal Tone, Good Strength Integumentary Skin Exam: Clear, Warm, Dry, Intact Extremeties Extremities Exam: Pitting Edema Neurologic Neuro Exam: Alert, Awake, Oriented, Speech Clear, Moving All Extremities, No Focal Deficits VTE Prophylaxis VTE Prophylaxis Meds: Heparin PUD Prophylasis PUD Prophylaxis: Protonix Assessment/Plan Assessment/Plan ASSESSMENT AND PLAN 1. This is a 51-year male who came to the ER diagnosed with altered mental status most likely secondary to hyperglycemia and dehydration. The patient's altered mental status is totally resolved. The patient is awake and oriented x4. 2. DKA. The patient had a blood sugar of 890, better now . The patient is on insulin sliding scale. on metformin 500 mg PO BID. Will monitor blood sugar closely. 3. History of COPD. Continue home medication. 4. History of anxiety. Continue with Ativan 0.5 mg p.o. q.8h. 5. History of hypertension. Continue with diltiazem. 6. History of tachycardia. Continue with diltiazem. 7. Leg edema. Continue furosemide 40 mg p.o. daily. 8. History of GERD. Continue with Carafate and Protonix 40 mg p.o. daily. 9. History of DVT and pulmonary embolism. Continue with Eliquis 5 mg twice a day. 10. History of hyperlipidemia. Continue with Lipitor 20 mg p.o. daily. 11. History of fungal infection of the right hip. Continue with Diflucan 100 mg twice a day. 12. DVT prophylaxis. The patient is on Eliquis. 13. GI prophylaxis with Protonix and Carafate. 14. High LFTs. Will monitor. 15. Pseudohyponatremia, resolved. 16. Leukocytosis. Will monitor. 17. Anemia. The patient has iron deficiency. The patient on ferrous sulfate 325 mg p.o. t.i.d. 18. Hypokalemia will replace potassium and monitor. 19. Burning / painful urination checked urine and start pyridium for 2 days and continue with rocephin 1 gm IV Daily. Check CBC and CMP in the morning. We are going to manage the patient on a daily basis and make recommendations on a daily basis. Discussed Condition with: Patient Myron Woodward MD February 04, 2017 08:26
[2017-02-04] MEDS: cefTRIAXone INJ 1,000 MG in SODIUM CHLORIDE 0.9% INJ 100 ML IV SCH (08:29)
[2017-02-04] MEDS: SODIUM CHLORIDE 0.9% FLUSH 10 ML FLUSH IV FLUSH SCH ×2 (08:29→21:00)
[2017-02-04] MEDS: APIXABAN 5 MG TABLET PO SCH ×2 (08:29→22:06)
[2017-02-04] MEDS: metFORMIN HCL 500 MG TAB PO SCH ×2 (08:29→16:44)
[2017-02-04] MEDS: FERROUS SULFATE 325 MG (65 MG ELEMENTAL IRON) TAB PO SCH ×2 (08:29→22:07)
[2017-02-04] MEDS: FUROSEMIDE 40 MG TAB PO SCH (08:29)
[2017-02-04] MEDS: DOCUSATE SODIUM 50 MG/SENNA 8.6 MG TAB PO SCH ×2 (08:29→22:06)
[2017-02-04] MEDS: DILTIAZEM-CD 180 MG CAP ER PO SCH (08:29)
[2017-02-04] MEDS: FLUCONAZOLE 100 MG TAB PO SCH ×2 (08:29→22:07)
[2017-02-04] MEDS: BUDESONIDE-FORMOTEROL 160/4.5 MCG INHALER INH SCH ×2 (08:30→21:00)
[2017-02-04] MEDS ORDERED: POTASSIUM CHLORIDE 20 MEQ CONTROLLED RELEASE TAB PO ONE (09:00)
[2017-02-04 10:31] LABS: BANDS 6 % (0-6); METAMYELOCYTES 7 % (0-1); MYELOCYTES 3 % (0-0); NEUTROPHIL # MANUAL DIFF 4.3 TH/MM3 (1.8-7.7); OVALOCYTES 1+ (NORMAL); PLATELET ESTIMATE SMEAR NORMAL (NORMAL); PLATELET MORPHOLOGY NORMAL (NORMAL); POLYS (SEG NEUTROPHILS) 58 % (16-70); SCAN/DIFF FINAL DIFF MANUAL; TEARDROP RBCS 1+ (NORMAL); WBC DIFF SAMPLE 100
[2017-02-04] MEDS: PHENAZOPYRIDINE HCL 100 MG TAB PO PRN ×2 (16:44→22:07)
[2017-02-04] MEDS ORDERED: RESP: ALBUTEROL 2.5 MG/IPRATROPIUM 0.5 MG NEB (PRN) NEB (21:15)
[2017-02-04] MEDS: PANTOPRAZOLE SOD 40 MG DELAYED RELEASE TAB PO SCH (22:06)
[2017-02-04] MEDS: ATORVASTATIN 20 MG TAB PO SCH (22:07)
[2017-02-04] MEDS: MONTELUKAST SODIUM 10 MG TAB PO SCH (22:07)
[2017-02-05] VITALS (9 sets, daily range): BP systolic 124–144; BP diastolic 85–98; PULSE 110–135; RESP 16–20; TEMP 97.3–98; O2SAT 94–98
[2017-02-05] MEDS: LORazepam 0.5 MG TAB PO SCH ×3 (00:45→17:18)
[2017-02-05] MEDS: PHENAZOPYRIDINE HCL 100 MG TAB PO PRN (00:45)
[2017-02-05] MEDS: RESP: ALBUTEROL 2.5 MG/IPRATROPIUM 0.5 MG NEB (SCH) NEB ×4 (00:46→11:23)
[2017-02-05] MEDS: MEDIUM DOSE INSULIN NOVOLOG SUPPLEMENTAL SCALE SQ SCH ×4 (05:25→20:57)
[2017-02-05] MEDS: SUCRALFATE 1 GM TAB PO SCH ×2 (06:24→17:18)
[2017-02-05 07:34] LABS: AUTOMATED NEUTROPHIL # 3.4 TH/MM3 (1.8-7.7); BASOPHIL # 0.1 TH/MM3 (0-0.2); EOSINOPHIL % 0.2 % (0.0-4.0); HEMATOCRIT 34.9 % (39.0-51.0); LYMPH % 22.1 % (9.0-44.0); LYMPHOCYTE # 1.1 TH/MM3 (1.0-4.8); MEAN CELL VOLUME 81.3 FL (80.0-100.0); MEAN CORPUSCULAR HEMOGLOBIN 25.8 PG (27.0-34.0); MEAN CORPUSCULAR HGB CONC 31.8 % (32.0-36.0); NEUT % 67.7 % (16.0-70.0); PLATELET COUNT 215 TH/MM3 (150-450); RED CELL DISTRIBUTION WIDTH 29.4 % (11.6-17.2); WHITE BLOOD COUNT 5.1 TH/MM3 (4.0-11.0)
[2017-02-05 07:45] LABS: HEMO FLAGS AUTO DIFF
[2017-02-05 07:57] LABS: ALT (GPT) 120 U/L (12-78); ANION GAP 10 MEQ/L (5-15); AST (GOT) 74 U/L (15-37); BICARBONATE 24.9 MEQ/L (21.0-32.0); BLOOD UREA NITROGEN 5 MG/DL (7-18); CHLORIDE 106 MEQ/L (98-107); GLOMERULAR FILTRATION RATE 147 ML/MIN (>89); POTASSIUM 3.1 MEQ/L (3.5-5.1); SODIUM (NA) 141 MEQ/L (136-145)
[2017-02-05 07:59] LABS: ALKALINE PHOSPHATASE 187 U/L (45-117); TOTAL BILIRUBIN ADULT 0.3 MG/DL (0.2-1.0)
--- NOTE | 2017-02-05 08:33 | HHI.PR ---
Subjective History of Present Illness Patient feel better on metformin 500 mg PO BID blood glucose getting better low potassium will replace c/o burning/ painful urination checked urine and on pyridium for 2 days and continue with rocephin 1 gm IV Daily. patient have urinary retention s/p foleys catheter in urology consulted d/w RN at bed side. Review of Systems Constitutional Constitutional: Fatigue, Weakness Pulmonary Respiratory: Shortness of Breath, Wheezing Vitals/Results Intake & Output 02/04/17 02/04/17 02/05/17 15:00 23:00 07:00 Intake Total 5395 ml 1280 ml 800 ml Output Total 1725 ml 2050 ml 375 ml Balance 3670 ml -770 ml 425 ml Intake Oral 1080 ml 480 ml 0 ml IV Total 4315 ml 800 ml 800 ml Output Urine Total 1725 ml 2050 ml 375 ml Bladder Scan Volume Amount 595 ml 426 ml # Bowel Movements 1 0 0 Vital Signs Vital Signs Date Time Temp Pulse Resp B/P Pulse Ox O2 Delivery O2 Flow Rate FiO2 02/05/17 07:54 96 21 02/05/17 04:00 97.6 119 20 124/85 96 02/05/17 02:24 Room Air 02/05/17 00:00 97.3 110 18 131/85 96 02/04/17 21:41 96 21 02/04/17 20:14 120 02/04/17 20:00 97.9 120 20 147/99 97 02/04/17 16:00 Room Air 02/04/17 16:00 97.6 120 20 128/83 98 02/04/17 12:00 Room Air 02/04/17 11:35 97.9 120 20 137/94 97 02/04/17 09:03 99 Nasal Cannula 2.00 02/04/17 09:00 105 CBC/BMP: 02/05/17 0616 02/05/17 0616 Lab Results Laboratory Tests Test 02/05/17 06:16 White Blood Count 5.1 TH/MM3 Red Blood Count 4.30 MIL/MM3 Hemoglobin 11.1 GM/DL Hematocrit 34.9 % Mean Corpuscular Volume 81.3 FL Mean Corpuscular Hemoglobin 25.8 PG Mean Corpuscular Hemoglobin 31.8 % Concent Red Cell Distribution Width 29.4 % Platelet Count 215 TH/MM3 Mean Platelet Volume 7.9 FL Neutrophils (%) (Auto) 67.7 % Lymphocytes (%) (Auto) 22.1 % Monocytes (%) (Auto) 9.0 % Eosinophils (%) (Auto) 0.2 % Basophils (%) (Auto) 1.0 % Neutrophils # (Auto) 3.4 TH/MM3 Lymphocytes # (Auto) 1.1 TH/MM3 Monocytes # (Auto) 0.5 TH/MM3 Eosinophils # (Auto) 0.0 TH/MM3 Basophils # (Auto) 0.1 TH/MM3 CBC Comment AUTO DIFF Sodium Level 141 MEQ/L Potassium Level 3.1 MEQ/L Chloride Level 106 MEQ/L Carbon Dioxide Level 24.9 MEQ/L Anion Gap 10 MEQ/L Blood Urea Nitrogen 5 MG/DL Creatinine 0.58 MG/DL Estimat Glomerular Filtration 147 ML/MIN Rate Random Glucose 152 MG/DL Calcium Level 8.9 MG/DL Total Bilirubin 0.3 MG/DL Aspartate Amino Transf 74 U/L (AST/SGOT) Alanine Aminotransferase 120 U/L (ALT/SGPT) Alkaline Phosphatase 187 U/L Total Protein 5.7 GM/DL Albumin 2.9 GM/DL Physical Exam General General Appearance: Well Developed, Well Nourished, No Acute Distress, Comfortable Eyes Eye Exam: Pupils Equal, Pupils Reactive, Sclera White, Extraocular Movement Intact Throat Throat Exam: Oral Mucosa [place] & Moist, Oral Pharynx Normal Neck Neck Exam: Neck Supple, Trachea Midline Pulmonary Resp Remarks Bilateral wheezing. Cardiology CV Exam: Regular, Normal Sinus Rhythm Gastrointestinal/Abdomen GI Exam: Soft, Non-Tender, Bowel Sounds Present Musculoskeletal MS Exam: Normal Gait, Normal Tone, Good Strength Integumentary Skin Exam: Clear, Warm, Dry, Intact Extremeties Extremities Exam: Pitting Edema Neurologic Neuro Exam: Alert, Awake, Oriented, Speech Clear, Moving All Extremities, No Focal Deficits VTE Prophylaxis VTE Prophylaxis Meds: Heparin PUD Prophylasis PUD Prophylaxis: Protonix Assessment/Plan Assessment/Plan ASSESSMENT AND PLAN 1. This is a 51-year male who came to the ER diagnosed with altered mental status most likely secondary to hyperglycemia and dehydration. The patient's altered mental status is totally resolved. The patient is awake and oriented x4. 2. DKA. The patient had a blood sugar of 890, better now . The patient is on insulin sliding scale. on metformin 500 mg PO BID. Will monitor blood sugar closely. 3. History of COPD. Continue home medication. 4. History of anxiety. Continue with Ativan 0.5 mg p.o. q.8h. 5. History of hypertension. Continue with diltiazem. 6. History of tachycardia. Continue with diltiazem. 7. Leg edema. Continue furosemide 40 mg p.o. daily. 8. History of GERD. Continue with Carafate and Protonix 40 mg p.o. daily. 9. History of DVT and pulmonary embolism. Continue with Eliquis 5 mg twice a day. 10. History of hyperlipidemia. Continue with Lipitor 20 mg p.o. daily. 11. History of fungal infection of the right hip. Continue with Diflucan 100 mg twice a day. 12. DVT prophylaxis. The patient is on Eliquis. 13. GI prophylaxis with Protonix and Carafate. 14. High LFTs. Will monitor. 15. Pseudohyponatremia, resolved. 16. Leukocytosis. Will monitor. 17. Anemia. The patient has iron deficiency. The patient on ferrous sulfate 325 mg p.o. t.i.d. 18. Hypokalemia will replace potassium and monitor. 19. Burning / painful urination checked urine and on pyridium for 2 days and continue with rocephin 1 gm IV Daily. 20. Urinary retention s/p foleys catheter in urology consulted Check CBC and CMP in the morning. We are going to manage the patient on a daily basis and make recommendations on a daily basis. Discussed Condition with: Patient Myron Woodward MD February 05, 2017 08:33
[2017-02-05 08:41] LABS: OVALOCYTES 1+ (NORMAL); PLATELET ESTIMATE SMEAR NORMAL (NORMAL); PLATELET MORPHOLOGY NORMAL (NORMAL); SCAN/DIFF AUTO DIFF CONFIRMED
[2017-02-05] MEDS: BUDESONIDE-FORMOTEROL 160/4.5 MCG INHALER INH SCH ×2 (09:00→20:18)
[2017-02-05] MEDS: SODIUM CHLORIDE 0.9% FLUSH 10 ML FLUSH IV FLUSH SCH ×2 (09:00→20:18)
[2017-02-05] MEDS: FUROSEMIDE 40 MG TAB PO SCH (09:08)
[2017-02-05] MEDS: DOCUSATE SODIUM 50 MG/SENNA 8.6 MG TAB PO SCH ×2 (09:08→20:20)
[2017-02-05] MEDS: FERROUS SULFATE 325 MG (65 MG ELEMENTAL IRON) TAB PO SCH ×2 (09:08→20:19)
[2017-02-05] MEDS: FLUCONAZOLE 100 MG TAB PO SCH ×2 (09:08→20:19)
[2017-02-05] MEDS: metFORMIN HCL 500 MG TAB PO SCH ×2 (09:08→17:18)
[2017-02-05] MEDS: APIXABAN 5 MG TABLET PO SCH ×2 (09:08→20:20)
[2017-02-05] MEDS: cefTRIAXone INJ 1,000 MG in SODIUM CHLORIDE 0.9% INJ 100 ML IV SCH (09:08)
[2017-02-05] MEDS: DILTIAZEM-CD 180 MG CAP ER PO SCH (09:09)
[2017-02-05] MEDS: SODIUM CHLOR 0.9% 1000 ML INJ 1,000 ML IV SCH ×2 (09:09→17:20)
--- NOTE | 2017-02-05 10:05 | PD.CONS ---
[facility] Service Urology Consult Requested By Primary Care Physician Myron Woodward MD Diagnosis: History of Present Illness 51-year-old male presented to the emergency room with generalized weakness and findings of a glucose level between 800 and 900. He has a history of multiple medical problems and was recently noted to be in urinary retention during this hospitalization. Torres catheter was inserted for 1 L of urine. He was having some mild dysuria just prior to this. He denies any prior history of lower urinary tract symptoms or urinary retention. He notes a moderate stream and denies incomplete emptying. He denies any prior infections, stones, or hematuria. He denies any evidence of peripheral neuropathy or constipation. He does occasionally take narcotics but states that he's currently not taking any during his hospitalization. He admits to not ambulating much during his hospitalization. Review of Systems Constitutional: DENIES: Diaphoretic episodes Endocrine: DENIES: Heat/cold intolerance Eyes: DENIES: Blurred vision Ears, nose, mouth, throat: DENIES: Hearing loss Respiratory: COMPLAINS OF: Cough, Wheezing Gastrointestinal: DENIES: Abdominal pain, Black stools Genitourinary: COMPLAINS OF: Dysuria, DENIES: Urinary frequency, Urinary incontinence, Hematuria, Nocturia, Testicular Pain Musculoskeletal: COMPLAINS OF: Joint pain Integumentary: DENIES: Abnormal pigmentation Hematologic/lymphatic: DENIES: Bruising Immunologic/allergic: DENIES: Eczema Neurologic: COMPLAINS OF: Abnormal gait Past Family Social History Past Medical History COPD/asthma Newly diagnosed diabetes mellitus Hypertension Hyperlipidemia Depression Anxiety Tachycardia DVT of right lower extremity Pulmonary emboli Arthritis Past Surgical History Appendectomy Tonsillectomy Bilateral hip surgery in high school Right hip replacement 2 this past year Allergies: Coded Allergies: Tetracycline (Verified Allergy, Severe, throat swells, 01/30/17) Demerol (Verified Allergy, Intermediate, hallucinations, 01/30/17) Family History COPD with history of chronic smokers Social History Denies smoking, drinking, using drugs. Physical Exam Vital Signs Date Time Temp Pulse Resp B/P Pulse Ox O2 Delivery O2 Flow Rate FiO2 02/05/17 08:00 97.3 112 20 144/87 95 02/05/17 07:54 96 21 02/05/17 04:00 97.6 119 20 124/85 96 02/05/17 02:24 Room Air 02/05/17 00:00 97.3 110 18 131/85 96 02/04/17 21:41 96 21 02/04/17 20:14 120 02/04/17 20:00 97.9 120 20 147/99 97 02/04/17 16:00 Room Air 02/04/17 16:00 97.6 120 20 128/83 98 02/04/17 12:00 Room Air 02/04/17 11:35 97.9 120 20 137/94 97 Physical Exam GENERAL: This is a well-nourished, well-developed patient, in no apparent distress. SKIN: No rashes, ecchymoses or lesions. Cool and dry. HEAD: Atraumatic. Normocephalic. No temporal or scalp tenderness. EYES: Pupils equal round and reactive. Extraocular motions intact. No scleral icterus. No injection or drainage. ENT: Nose without bleeding, purulent drainage or septal hematoma. Throat without erythema, tonsillar hypertrophy or exudate. Uvula midline. Airway patent. NECK: Trachea midline. No JVD or lymphadenopathy. Supple, nontender, no meningeal signs. CARDIOVASCULAR: Regular rate and rhythm without murmurs, gallops, or rubs. RESPIRATORY: Clear to auscultation. Breath sounds equal bilaterally. No wheezes , rales, or rhonchi. GASTROINTESTINAL: Abdomen soft, non-tender, nondistended. No hepato-splenomegaly , or palpable masses. No guarding. GENITOURINARY: Normal phallus testes are descended with Torres catheter in place MUSCULOSKELETAL: Extremities without clubbing, cyanosis, or edema. No joint tenderness, effusion, or edema noted. No calf tenderness. Negative Homans sign bilaterally. NEUROLOGICAL: Awake and alert. Cranial nerves II through XII intact. Motor and sensory grossly within normal limits. Five out of 5 muscle strength in all muscle groups. Normal speech. Laboratory Tests Test 02/05/17 06:16 White Blood Count 5.1 Red Blood Count 4.30 Hemoglobin 11.1 Hematocrit 34.9 Mean Corpuscular Volume 81.3 Mean Corpuscular Hemoglobin 25.8 Mean Corpuscular Hemoglobin 31.8 Concent Red Cell Distribution Width 29.4 Platelet Count 215 Mean Platelet Volume 7.9 Neutrophils (%) (Auto) 67.7 Lymphocytes (%) (Auto) 22.1 Monocytes (%) (Auto) 9.0 Eosinophils (%) (Auto) 0.2 Basophils (%) (Auto) 1.0 Neutrophils # (Auto) 3.4 Lymphocytes # (Auto) 1.1 Monocytes # (Auto) 0.5 Eosinophils # (Auto) 0.0 Basophils # (Auto) 0.1 CBC Comment AUTO DIFF Differential Comment AUTO DIFF CONFIRMED Platelet Estimate NORMAL Platelet Morphology Comment NORMAL Ovalocytes 1+ Sodium Level 141 Potassium Level 3.1 Chloride Level 106 Carbon Dioxide Level 24.9 Anion Gap 10 Blood Urea Nitrogen 5 Creatinine 0.58 Estimat Glomerular Filtration 147 Rate Random Glucose 152 Calcium Level 8.9 Total Bilirubin 0.3 Aspartate Amino Transf 74 (AST/SGOT) Alanine Aminotransferase 120 (ALT/SGPT) Alkaline Phosphatase 187 Total Protein 5.7 Albumin 2.9 Result Diagram: 02/05/17 0616 02/05/17 0616 Imaging Last Impressions Chest X-Ray 01/30/17 1439 Signed Impressions: Service Date/Time: January 14:56 - CONCLUSION: Underinflated examination with mild atelectasis at the right lung base. No acute cardiopulmonary abnormality is identified. Adin Cheema MD Head CT 01/30/17 0000 Signed Impressions: Service Date/Time: January 16:27 - CONCLUSION: 1. No acute intracranial abnormalities. Sebaceous cyst in left occipital soft tissues. Morales Nunez MD Assessment and Plan Assessment and Plan 31-year-old male admitted with newly diagnosed diabetes and generalized weakness with episode of urinary retention. Torres catheter placed for 1 L of urine output. Maintain Torres catheter for now. Will start Flomax 0.4 mg by mouth daily at bedtime. We'll obtain a renal bladder ultrasound. Void trial in the future. Thank you for the consult and for allowing me to participate in the care of this patient. Manuel Morel DO February 05, 2017 10:05
[2017-02-05] MEDS ORDERED: POTASSIUM CHLORIDE 10 MEQ CONTROLLED RELEASE TAB PO ONE (10:15)
[2017-02-05] MEDS: TAMSULOSIN HCL 0.4 MG CAP PO SCH (11:53)
[2017-02-05] MEDS: RESP: LEVALBUTEROL HYDROCHLORIDE 1.25 MG/3 ML NEB (SCH) NEB ×2 (15:14→21:05)
[2017-02-05] MEDS: ACETAMINOPHEN/HYDROcodone 325 MG/5 MG TAB PO PRN (17:29)
--- NOTE | 2017-02-05 18:43 | RADRPT ---
EXAM DATE/TIME: 02/05/2017 13:18 [place] COMPARISON: No previous studies available for comparison. INDICATIONS : Urinary retention. MEDICAL HISTORY : Hypercholesterolemia. Hypertension. Chronic obstructive pulmonary disease. Deep vein thrombosis. GERD . Arthritis. Diabetes. Sinus tachycardia. SURGICAL HISTORY : Tonsillectomy. Appendectomy. Bilateral hip replacement. ENCOUNTER: Initial ACUITY: 2 days PAIN SCORE: 9/10 LOCATION: Bilateral flank MEASUREMENTS: RIGHT KIDNEY: 10.8 x 6.9 x 5.7 cm LEFT KIDNEY: 10.8 x 5.5 x6.0 cm FINDINGS: RIGHT KIDNEY: Renal cortex is normal in thickness and echotexture. No hydronephrosis, stone, or mass. LEFT KIDNEY: Renal cortex is normal in thickness and echotexture. No hydronephrosis, stone, or mass. BLADDER: Urinary bladder contains a Torres. The urinary bladder is not distended. CONCLUSION: 1. Decompressed bladder with Torres present. Otherwise, unremarkable exam. Adriel Steward Jr., MD on February 05, 2017 at 18:40 Board Certified Radiologist. This report was verified electronically.
[2017-02-05] MEDS: PANTOPRAZOLE SOD 40 MG DELAYED RELEASE TAB PO SCH (20:19)
[2017-02-05] MEDS: guaiFENesin/DEXTROMETHORPHAN 200 MG/20 MG/10 ML CUP PO PRN (20:19)
[2017-02-05] MEDS: MONTELUKAST SODIUM 10 MG TAB PO SCH (20:20)
[2017-02-05] MEDS: ATORVASTATIN 20 MG TAB PO SCH (20:20)
[2017-02-05] MEDS: ONDANSETRON HCL 4 MG/2 ML VIAL IVP PRN (23:13)
[2017-02-06] VITALS (9 sets, daily range): BP systolic 121–140; BP diastolic 72–93; PULSE 113–132; RESP 16–20; TEMP 97.5–97.9; O2SAT 92–98
[2017-02-06] MEDS: LORazepam 0.5 MG TAB PO SCH ×3 (01:21→16:36)
[2017-02-06] MEDS: RESP: LEVALBUTEROL HYDROCHLORIDE 1.25 MG/3 ML NEB (SCH) NEB ×3 (04:00→14:24)
[2017-02-06] MEDS: MEDIUM DOSE INSULIN NOVOLOG SUPPLEMENTAL SCALE SQ SCH ×4 (05:24→20:20)
[2017-02-06] MEDS: SUCRALFATE 1 GM TAB PO SCH ×2 (05:24→16:34)
[2017-02-06 07:02] LABS: AUTOMATED NEUTROPHIL # 4.9 TH/MM3 (1.8-7.7); BASOPHIL # 0.1 TH/MM3 (0-0.2); BASOPHIL % 1.3 % (0.0-2.0); EOSINOPHIL % 0.4 % (0.0-4.0); HEMATOCRIT 34.8 % (39.0-51.0); LYMPH % 17.8 % (9.0-44.0); LYMPHOCYTE # 1.2 TH/MM3 (1.0-4.8); MEAN CELL VOLUME 80.1 FL (80.0-100.0); MEAN CORPUSCULAR HEMOGLOBIN 26.9 PG (27.0-34.0); MEAN CORPUSCULAR HGB CONC 33.5 % (32.0-36.0); MONO % 9.8 % (0.0-8.0); NEUT % 70.7 % (16.0-70.0); PLATELET COUNT 251 TH/MM3 (150-450); RED BLOOD COUNT 4.34 MIL/MM3 (4.50-5.90); RED CELL DISTRIBUTION WIDTH 29.2 % (11.6-17.2); WHITE BLOOD COUNT 6.9 TH/MM3 (4.0-11.0)
[2017-02-06 07:06] LABS: HEMO FLAGS AUTO DIFF
[2017-02-06 07:07] LABS: ALT (GPT) 119 U/L (12-78); ANION GAP 10 MEQ/L (5-15); AST (GOT) 50 U/L (15-37); BICARBONATE 26.5 MEQ/L (21.0-32.0); BLOOD UREA NITROGEN 5 MG/DL (7-18); CHLORIDE 104 MEQ/L (98-107); GLOMERULAR FILTRATION RATE 113 ML/MIN (>89); MAGNESIUM 1.4 MG/DL (1.5-2.5); POTASSIUM 3.3 MEQ/L (3.5-5.1); SODIUM (NA) 140 MEQ/L (136-145)
[2017-02-06 07:09] LABS: ALKALINE PHOSPHATASE 201 U/L (45-117); TOTAL BILIRUBIN ADULT 0.4 MG/DL (0.2-1.0)
[2017-02-06 08:10] LABS: BANDS 4 % (0-6); MYELOCYTES 3 % (0-0); NEUTROPHIL # MANUAL DIFF 5.5 TH/MM3 (1.8-7.7); PLATELET ESTIMATE SMEAR NORMAL (NORMAL); PLATELET MORPHOLOGY NORMAL (NORMAL); POLYS (SEG NEUTROPHILS) 72 % (16-70); SCAN/DIFF FINAL DIFF MANUAL; WBC DIFF SAMPLE 100
[2017-02-06 08:11] LABS: OVALOCYTES 1+ (NORMAL)
[2017-02-06] MEDS: ONDANSETRON HCL 4 MG/2 ML VIAL IVP PRN ×3 (08:40→22:46)
[2017-02-06] MEDS: SODIUM CHLORIDE 0.9% FLUSH 10 ML FLUSH IV FLUSH SCH ×2 (09:00→20:21)
[2017-02-06] MEDS: BUDESONIDE-FORMOTEROL 160/4.5 MCG INHALER INH SCH ×2 (09:00→20:13)
[2017-02-06] MEDS: FUROSEMIDE 40 MG TAB PO SCH (09:03)
[2017-02-06] MEDS: APIXABAN 5 MG TABLET PO SCH ×2 (09:03→20:14)
[2017-02-06] MEDS: TAMSULOSIN HCL 0.4 MG CAP PO SCH (09:04)
[2017-02-06] MEDS: DILTIAZEM-CD 180 MG CAP ER PO SCH (09:04)
[2017-02-06] MEDS: FERROUS SULFATE 325 MG (65 MG ELEMENTAL IRON) TAB PO SCH ×2 (09:04→20:14)
[2017-02-06] MEDS: DOCUSATE SODIUM 50 MG/SENNA 8.6 MG TAB PO SCH ×2 (09:04→20:14)
[2017-02-06] MEDS: cefTRIAXone INJ 1,000 MG in SODIUM CHLORIDE 0.9% INJ 100 ML IV SCH (09:04)
[2017-02-06] MEDS: FLUCONAZOLE 100 MG TAB PO SCH ×2 (09:04→20:14)
[2017-02-06] MEDS: metFORMIN HCL 500 MG TAB PO SCH ×2 (09:04→16:37)
--- NOTE | 2017-02-06 09:13 | HHI.PR ---
Subjective History of Present Illness Patient feel better on metformin 500 mg PO BID blood glucose getting better low potassium will replace still have burning/ painful urination continue with rocephin 1 gm IV Daily. patient have urinary retention s/p foleys catheter in urology input noted wants cough medicine started. Review of Systems Constitutional Constitutional: Fatigue, Weakness Pulmonary Respiratory: Shortness of Breath, Wheezing Vitals/Results Intake & Output 02/05/17 02/05/17 02/06/17 15:00 23:00 07:00 Intake Total 1400 ml 1206 ml 480 ml Output Total 3300 ml 450 ml 550 ml Balance -1900 ml 756 ml -70 ml Intake Oral 1400 ml 1200 ml 480 ml IV Total 6 ml Output Urine Total 3300 ml 450 ml 550 ml Bladder Scan Volume Amount 999 ml # Bowel Movements 1 1 0 Vital Signs Vital Signs Date Time Temp Pulse Resp B/P Pulse Ox O2 Delivery O2 Flow Rate FiO2 02/06/17 08:00 97.8 114 20 125/86 96 02/06/17 05:32 97.5 119 16 126/87 94 02/06/17 05:08 Room Air 02/06/17 01:02 Room Air 02/06/17 00:05 97.5 120 16 124/93 97 02/05/17 21:15 Room Air 02/05/17 20:00 134 02/05/17 20:00 98.0 135 16 137/92 94 02/05/17 16:00 Room Air 02/05/17 16:00 97.7 124 20 140/98 97 02/05/17 15:14 98 21 02/05/17 12:00 Room Air 02/05/17 12:00 97.5 120 20 142/92 CBC/BMP: 02/06/17 0601 02/06/17 0601 Lab Results Laboratory Tests Test 02/06/17 06:01 White Blood Count 6.9 TH/MM3 Red Blood Count 4.34 MIL/MM3 Hemoglobin 11.7 GM/DL Hematocrit 34.8 % Mean Corpuscular Volume 80.1 FL Mean Corpuscular Hemoglobin 26.9 PG Mean Corpuscular Hemoglobin 33.5 % Concent Red Cell Distribution Width 29.2 % Platelet Count 251 TH/MM3 Mean Platelet Volume 7.9 FL Neutrophils (%) (Auto) 70.7 % Lymphocytes (%) (Auto) 17.8 % Monocytes (%) (Auto) 9.8 % Eosinophils (%) (Auto) 0.4 % Basophils (%) (Auto) 1.3 % Neutrophils # (Auto) 4.9 TH/MM3 Lymphocytes # (Auto) 1.2 TH/MM3 Monocytes # (Auto) 0.7 TH/MM3 Eosinophils # (Auto) 0.0 TH/MM3 Basophils # (Auto) 0.1 TH/MM3 CBC Comment AUTO DIFF Differential Total Cells 100 Counted Neutrophils % (Manual) 72 % Band Neutrophils % 4 % Lymphocytes % 16 % Monocytes % 5 % Neutrophils # (Manual) 5.5 TH/MM3 Myelocytes 3 % Differential Comment FINAL DIFF MANUAL Platelet Estimate NORMAL Platelet Morphology Comment NORMAL Ovalocytes 1+ Sodium Level 140 MEQ/L Potassium Level 3.3 MEQ/L Chloride Level 104 MEQ/L Carbon Dioxide Level 26.5 MEQ/L Anion Gap 10 MEQ/L Blood Urea Nitrogen 5 MG/DL Creatinine 0.73 MG/DL Estimat Glomerular Filtration 113 ML/MIN Rate Random Glucose 130 MG/DL Calcium Level 9.1 MG/DL Magnesium Level 1.4 MG/DL Total Bilirubin 0.4 MG/DL Aspartate Amino Transf 50 U/L (AST/SGOT) Alanine Aminotransferase 119 U/L (ALT/SGPT) Alkaline Phosphatase 201 U/L Total Protein 6.2 GM/DL Albumin 3.1 GM/DL Physical Exam General General Appearance: Well Developed, Well Nourished, No Acute Distress, Comfortable Eyes Eye Exam: Pupils Equal, Pupils Reactive, Sclera White, Extraocular Movement Intact Throat Throat Exam: Oral Mucosa [place] & Moist, Oral Pharynx Normal Neck Neck Exam: Neck Supple, Trachea Midline Pulmonary Resp Remarks Bilateral wheezing. Cardiology CV Exam: Regular, Normal Sinus Rhythm Gastrointestinal/Abdomen GI Exam: Soft, Non-Tender, Bowel Sounds Present Musculoskeletal MS Exam: Normal Gait, Normal Tone, Good Strength Integumentary Skin Exam: Clear, Warm, Dry, Intact Extremeties Extremities Exam: Pitting Edema Neurologic Neuro Exam: Alert, Awake, Oriented, Speech Clear, Moving All Extremities, No Focal Deficits VTE Prophylaxis VTE Prophylaxis Meds: Heparin PUD Prophylasis PUD Prophylaxis: Protonix Assessment/Plan Assessment/Plan ASSESSMENT AND PLAN 1. This is a 51-year male who came to the ER diagnosed with altered mental status most likely secondary to hyperglycemia and dehydration. The patient's altered mental status is totally resolved. The patient is awake and oriented x4. 2. DKA. The patient had a blood sugar of 890, better now . The patient is on insulin sliding scale. on metformin 500 mg PO BID. Will monitor blood sugar closely. 3. History of COPD. Continue home medication. 4. History of anxiety. Continue with Ativan 0.5 mg p.o. q.8h. 5. History of hypertension. Continue with diltiazem. 6. History of tachycardia. Continue with diltiazem. 7. Leg edema. Continue furosemide 40 mg p.o. daily. 8. History of GERD. Continue with Carafate and Protonix 40 mg p.o. daily. 9. History of DVT and pulmonary embolism. Continue with Eliquis 5 mg twice a day. 10. History of hyperlipidemia. Continue with Lipitor 20 mg p.o. daily. 11. History of fungal infection of the right hip. Continue with Diflucan 100 mg twice a day. 12. DVT prophylaxis. The patient is on Eliquis. 13. GI prophylaxis with Protonix and Carafate. 14. High LFTs. Will monitor. 15. Pseudohyponatremia, resolved. 16. Leukocytosis. Will monitor. 17. Anemia. The patient has iron deficiency. The patient on ferrous sulfate 325 mg p.o. BID. 18. Hypokalemia will replace potassium and monitor. 19. Burning / painful urination checked urine and s/p pyridium for 2 days and continue with rocephin 1 gm IV Daily. 20. Urinary retention s/p foleys catheter in urology input nolted Check CBC and CMP in the morning. We are going to manage the patient on a daily basis and make recommendations on a daily basis. Discussed Condition with: Patient Myron Woodward MD Feb 06, 2017 09:13
[2017-02-06] MEDS ORDERED: POTASSIUM CHLORIDE 20 MEQ CONTROLLED RELEASE TAB PO ONE (09:15)
[2017-02-06] MEDS: ACETAMINOPHEN/HYDROcodone 325 MG/5 MG TAB PO PRN ×2 (13:40→20:16)
[2017-02-06] MEDS: guaiFENesin/DEXTROMETHORPHAN 200 MG/20 MG/10 ML CUP PO PRN (16:37)
[2017-02-06] MEDS: PANTOPRAZOLE SOD 40 MG DELAYED RELEASE TAB PO SCH (20:14)
[2017-02-06] MEDS: ATORVASTATIN 20 MG TAB PO SCH (20:15)
[2017-02-06] MEDS: MONTELUKAST SODIUM 10 MG TAB PO SCH (20:15)
[2017-02-07] VITALS (9 sets, daily range): BP systolic 116–145; BP diastolic 79–90; PULSE 107–123; RESP 16–20; TEMP 97.5–98; O2SAT 95–99
[2017-02-07] MEDS: LORazepam 0.5 MG TAB PO SCH ×3 (01:36→17:06)
[2017-02-07] MEDS: RESP: LEVALBUTEROL HYDROCHLORIDE 1.25 MG/3 ML NEB (SCH) NEB ×4 (04:00→21:42)
[2017-02-07] MEDS: SUCRALFATE 1 GM TAB PO SCH ×2 (06:01→16:29)
[2017-02-07] MEDS: ACETAMINOPHEN/HYDROcodone 325 MG/5 MG TAB PO PRN (06:02)
[2017-02-07] MEDS: MEDIUM DOSE INSULIN NOVOLOG SUPPLEMENTAL SCALE SQ SCH ×4 (06:03→20:59)
--- NOTE | 2017-02-07 07:10 | HHI.PR ---
Subjective History of Present Illness Patient feel better on metformin 500 mg PO BID blood glucose getting better low potassium will replace patient have urinary retention s/p foleys catheter in urology input noted d/w SHAZIA Chan. Review of Systems Constitutional Constitutional: Fatigue, Weakness Pulmonary Respiratory: Shortness of Breath, Wheezing Vitals/Results Intake & Output 02/06/17 02/06/17 02/07/17 15:00 23:00 07:00 Intake Total 720 ml 720 ml 132 ml Output Total 2250 ml 200 ml 250 ml Balance -1530 ml 520 ml -118 ml Intake Oral 720 ml 720 ml 120 ml IV Total 12 ml Output Urine Total 2250 ml 200 ml 250 ml Bladder Scan Volume Amount 999 ml 999 ml # Bowel Movements 1 1 0 Vital Signs Vital Signs Date Time Temp Pulse Resp B/P Pulse Ox O2 Delivery O2 Flow Rate FiO2 02/07/17 05:00 97.5 107 16 145/79 95 02/07/17 00:06 122 02/06/17 23:50 97.8 113 16 125/82 94 02/06/17 20:15 98 Room Air 02/06/17 19:40 97.8 116 16 121/72 98 02/06/17 16:00 97.9 127 20 124/75 95 02/06/17 12:00 97.7 129 20 140/86 92 02/06/17 09:00 132 02/06/17 08:00 Room Air 02/06/17 08:00 97.8 114 20 125/86 96 02/06/17 07:39 98 21 CBC/BMP: 02/06/17 0601 02/06/17 0601 Physical Exam General General Appearance: Well Developed, Well Nourished, No Acute Distress, Comfortable Eyes Eye Exam: Pupils Equal, Pupils Reactive, Sclera White, Extraocular Movement Intact Throat Throat Exam: Oral Mucosa [place] & Moist, Oral Pharynx Normal Neck Neck Exam: Neck Supple, Trachea Midline Pulmonary Resp Remarks Bilateral wheezing. Cardiology CV Exam: Regular, Normal Sinus Rhythm Gastrointestinal/Abdomen GI Exam: Soft, Non-Tender, Bowel Sounds Present Musculoskeletal MS Exam: Normal Gait, Normal Tone, Good Strength Integumentary Skin Exam: Clear, Warm, Dry, Intact Extremeties Extremities Exam: Pitting Edema Neurologic Neuro Exam: Alert, Awake, Oriented, Speech Clear, Moving All Extremities, No Focal Deficits VTE Prophylaxis VTE Prophylaxis Meds: Heparin PUD Prophylasis PUD Prophylaxis: Protonix Assessment/Plan Assessment/Plan ASSESSMENT AND PLAN 1. This is a 51-year male who came to the ER diagnosed with altered mental status most likely secondary to hyperglycemia and dehydration. The patient's altered mental status is totally resolved. The patient is awake and oriented x4. 2. DKA. The patient had a blood sugar of 890, better now . The patient is on insulin sliding scale. on metformin 500 mg PO BID. Will monitor blood sugar closely. 3. History of COPD. Continue home medication. 4. History of anxiety. Continue with Ativan 0.5 mg p.o. q.8h. 5. History of hypertension. Continue with diltiazem. 6. History of tachycardia. Continue with diltiazem. 7. Leg edema. Continue furosemide 40 mg p.o. daily. 8. History of GERD. Continue with Carafate and Protonix 40 mg p.o. daily. 9. History of DVT and pulmonary embolism. Continue with Eliquis 5 mg twice a day. 10. History of hyperlipidemia. Continue with Lipitor 20 mg p.o. daily. 11. History of fungal infection of the right hip. Continue with Diflucan 100 mg twice a day. 12. DVT prophylaxis. The patient is on Eliquis. 13. GI prophylaxis with Protonix and Carafate. 14. High LFTs. Will monitor. 15. Pseudohyponatremia, resolved. 16. Leukocytosis. Will monitor. 17. Anemia. The patient has iron deficiency. The patient on ferrous sulfate 325 mg p.o. BID. 18. Hypokalemia will replace potassium and monitor. 19. Burning / painful urination checked urine and s/p pyridium for 2 days and continue with rocephin 1 gm IV Daily. 20. Urinary retention s/p foleys catheter in urology input nolted Check CBC and CMP in the morning. We are going to manage the patient on a daily basis and make recommendations on a daily basis. Discussed Condition with: Patient Myron Woodward MD Feb 07, 2017 07:10
[2017-02-07] MEDS: ONDANSETRON HCL 4 MG/2 ML VIAL IVP PRN ×3 (07:24→23:01)
[2017-02-07 08:51] LABS: AUTOMATED NEUTROPHIL # 3.5 TH/MM3 (1.8-7.7); BASOPHIL # 0.1 TH/MM3 (0-0.2); EOSINOPHIL % 0.4 % (0.0-4.0); HEMATOCRIT 33.8 % (39.0-51.0); LYMPH % 21.6 % (9.0-44.0); LYMPHOCYTE # 1.1 TH/MM3 (1.0-4.8); MEAN CELL VOLUME 80.8 FL (80.0-100.0); MEAN CORPUSCULAR HEMOGLOBIN 26.1 PG (27.0-34.0); MEAN CORPUSCULAR HGB CONC 32.2 % (32.0-36.0); MONO % 11.8 % (0.0-8.0); NEUT % 65.2 % (16.0-70.0); PLATELET COUNT 245 TH/MM3 (150-450); RED BLOOD COUNT 4.18 MIL/MM3 (4.50-5.90); RED CELL DISTRIBUTION WIDTH 28.6 % (11.6-17.2); WHITE BLOOD COUNT 5.3 TH/MM3 (4.0-11.0)
[2017-02-07] MEDS: SODIUM CHLORIDE 0.9% FLUSH 10 ML FLUSH IV FLUSH SCH ×2 (09:00→20:56)
[2017-02-07] MEDS: BUDESONIDE-FORMOTEROL 160/4.5 MCG INHALER INH SCH ×2 (09:00→20:56)
[2017-02-07 09:02] LABS: HEMO FLAGS AUTO DIFF
[2017-02-07] MEDS: metFORMIN HCL 500 MG TAB PO SCH ×2 (09:15→17:07)
[2017-02-07] MEDS: POTASSIUM CHLORIDE 20 MEQ CONTROLLED RELEASE TAB PO SCH ×2 (09:15→20:54)
[2017-02-07] MEDS: FERROUS SULFATE 325 MG (65 MG ELEMENTAL IRON) TAB PO SCH ×2 (09:15→20:54)
[2017-02-07] MEDS: FUROSEMIDE 40 MG TAB PO SCH (09:15)
[2017-02-07] MEDS: TAMSULOSIN HCL 0.4 MG CAP PO SCH (09:15)
[2017-02-07] MEDS: APIXABAN 5 MG TABLET PO SCH ×2 (09:15→20:55)
[2017-02-07] MEDS: DOCUSATE SODIUM 50 MG/SENNA 8.6 MG TAB PO SCH ×2 (09:15→20:56)
[2017-02-07] MEDS: DILTIAZEM-CD 180 MG CAP ER PO SCH (09:15)
[2017-02-07] MEDS: FLUCONAZOLE 100 MG TAB PO SCH ×2 (09:16→20:55)
[2017-02-07] MEDS: cefTRIAXone INJ 1,000 MG in SODIUM CHLORIDE 0.9% INJ 100 ML IV SCH (09:16)
[2017-02-07 09:17] LABS: ANION GAP 10 MEQ/L (5-15); AST (GOT) 36 U/L (15-37); BICARBONATE 26.5 MEQ/L (21.0-32.0); BLOOD UREA NITROGEN 5 MG/DL (7-18); CHLORIDE 102 MEQ/L (98-107); GLOMERULAR FILTRATION RATE 136 ML/MIN (>89); POTASSIUM 3.2 MEQ/L (3.5-5.1); SODIUM (NA) 138 MEQ/L (136-145)
[2017-02-07 09:18] LABS: ALT (GPT) 104 U/L (12-78)
[2017-02-07 09:20] LABS: ALKALINE PHOSPHATASE 183 U/L (45-117); TOTAL BILIRUBIN ADULT 0.3 MG/DL (0.2-1.0)
[2017-02-07 09:35] LABS: BANDS 5 % (0-6); BASOPHILS 1 % (0-2); METAMYELOCYTES 2 % (0-1); NEUTROPHIL # MANUAL DIFF 3.9 TH/MM3 (1.8-7.7); POLYS (SEG NEUTROPHILS) 66 % (16-70); WBC DIFF SAMPLE 100
[2017-02-07 09:36] LABS: PLATELET ESTIMATE SMEAR NORMAL (NORMAL); PLATELET MORPHOLOGY NORMAL (NORMAL); SCAN/DIFF FINAL DIFF MANUAL
[2017-02-07] MEDS ORDERED: TAMS5CAP PO (09:47)
[2017-02-07] MEDS ORDERED: POTASSIUM CHLORIDE 10 MEQ CONTROLLED RELEASE TAB PO ONE (10:00)
--- NOTE | 2017-02-07 11:18 | HHI.PR ---
Subjective Patient symptoms today Pt seen and examined. Urine now clear. On anticoagulation medication which can cause hematuria with catheter in place. Objective Vital Signs Vital Signs Date Time Temp Pulse Resp B/P Pulse Ox O2 Delivery O2 Flow Rate FiO2 02/07/17 08:00 97.6 107 20 132/86 98 02/07/17 07:37 Room Air 02/07/17 05:00 97.5 107 16 145/79 95 02/07/17 00:06 122 02/06/17 23:50 97.8 113 16 125/82 94 02/06/17 20:15 98 Room Air 02/06/17 19:40 97.8 116 16 121/72 98 02/06/17 16:00 97.9 127 20 124/75 95 02/06/17 12:00 97.7 129 20 140/86 92 Intake & Output 02/07/17 02/07/17 07:00 19:00 Intake Total 852 ml Output Total 450 ml Balance 402 ml Intake Oral 840 ml IV Total 12 ml Output Urine Total 450 ml # Bowel Movements 1 Result Diagram: 02/07/17 0609 02/07/17 0609 Objective Remarks Abd:soft,nt,nd Torres: urine clear Medications and IVs Current Medications Medications (Trade) Dose Ordered Sig/Gabi Route Start Time Stop Time Status Last Admin (Eliquis) 5 mg BID PO 01/30/17 21:00 02/07/17 09:15 (Lipitor) 20 mg HS PO 01/30/17 21:00 02/06/17 20:15 (Flexeril) 10 mg Q8H PRN PO 01/30/17 17:15 (Cardizem Cd) 360 mg DAILY PO 01/31/17 09:00 02/07/17 09:15 (Diflucan) 100 mg BID PO 01/30/17 21:00 02/07/17 09:16 (Lasix) 40 mg DAILY PO 01/31/17 09:00 02/07/17 09:15 (Singulair) 10 mg HS PO 01/30/17 21:00 02/06/17 20:15 (Protonix) 40 mg HS PO 01/30/17 21:00 02/06/17 20:14 (NS Flush) 2 ml UNSCH PRN IV FLUSH 01/30/17 19:15 (NS Flush) 2 ml BID IV FLUSH 01/30/17 21:00 02/07/17 09:00 (Tylenol) 650 mg Q4H PRN PO 01/30/17 19:15 (Zofran Inj) 4 mg Q6H PRN IVP 01/30/17 19:15 02/07/17 07:24 (Narcan Inj) 0.4 mg UNSCH PRN IV 01/30/17 19:15 (Clare-Colace) 1 tab BID PO 01/30/17 21:00 02/07/17 09:15 (Milk Of Magnesia Liq) 30 ml Q12H PRN PO 01/30/17 19:15 (Senokot) 17.2 mg Q12H PRN PO 01/30/17 19:15 (Dulcolax Supp) 10 mg DAILY PRN RECTAL 01/30/17 19:15 (Lactulose Liq) 30 ml DAILY PRN PO 01/30/17 19:15 (D50w (Vial) Inj) 50 ml UNSCH PRN IV 01/31/17 00:45 (Glucagon Inj) 1 mg UNSCH PRN OTHER 01/31/17 00:45 (Symbicort 160-4.5 Inh) 2 puff Q12HR INH 01/31/17 11:00 02/07/17 09:00 (Carafate) 1 gm BIDAC PO 01/31/17 11:00 02/07/17 06:01 (Ativan) 0.5 mg Q8H PO 01/31/17 10:00 02/07/17 09:15 (Nu [place] 5-325 Mg) 2 tab Q4H PRN PO 01/31/17 10:15 02/07/17 06:02 (Ferrous Sulfate) 325 mg BID PO 01/31/17 10:30 02/07/17 09:15 Metformin HCl 500 mg 500 mg BIDPC PO 02/01/17 11:00 02/07/17 09:15 (Rocephin Inj/NS Inj) 100 ml @ 200 mls/hr Q24H IV 02/03/17 10:00 02/07/17 09:16 (Flomax) 0.4 mg DAILY PO 02/05/17 10:15 02/07/17 09:15 (Robitussin Dm 200-20 Mg/10 ml Liq) 10 ml Q8H PRN PO 02/05/17 20:00 02/06/17 16:37 (KCl) 20 meq Q12HR PO 02/07/17 09:00 02/07/17 09:15 Assessment and Plan Assessment and Plan 51-year-old male admitted with newly diagnosed diabetes and generalized weakness with episode of urinary retention. Torres catheter placed for 1 L of urine output. Maintain Torres catheter for now. Will start Flomax 0.4 mg by mouth daily at bedtime. We'll obtain a renal bladder ultrasound. Void trial in the future. Thank you for the consult and for allowing me to participate in the care of this patient. 02/07/17 51 y.o male with AUR Void trial can be given prior to discharge, if fails, can f/u in office next Friday for void trial. Continue Flomax.-Pscript on chart. R/B sono was unremarkable Manuel Morel DO Feb 07, 2017 11:18
[2017-02-07] MEDS: PANTOPRAZOLE SOD 40 MG DELAYED RELEASE TAB PO SCH (20:54)
[2017-02-07] MEDS: MONTELUKAST SODIUM 10 MG TAB PO SCH (20:54)
[2017-02-07] MEDS: ATORVASTATIN 20 MG TAB PO SCH (20:54)
[2017-02-08] VITALS (8 sets, daily range): BP systolic 115–149; BP diastolic 75–87; PULSE 115–128; RESP 16–18; TEMP 97.6–98.2; O2SAT 95–98
[2017-02-08] MEDS: LORazepam 0.5 MG TAB PO SCH ×3 (00:49→17:29)
[2017-02-08] MEDS: RESP: LEVALBUTEROL HYDROCHLORIDE 1.25 MG/3 ML NEB (SCH) NEB ×4 (03:35→21:30)
[2017-02-08] MEDS: SUCRALFATE 1 GM TAB PO SCH ×2 (05:55→17:29)
[2017-02-08] MEDS: ONDANSETRON HCL 4 MG/2 ML VIAL IVP PRN ×2 (05:55→18:16)
[2017-02-08] MEDS: MEDIUM DOSE INSULIN NOVOLOG SUPPLEMENTAL SCALE SQ SCH ×4 (05:57→20:25)
[2017-02-08 07:16] LABS: AUTOMATED NEUTROPHIL # 3.8 TH/MM3 (1.8-7.7); BASOPHIL % 0.8 % (0.0-2.0); EOSINOPHIL % 0.5 % (0.0-4.0); HEMATOCRIT 35.1 % (39.0-51.0); LYMPHOCYTE # 1.2 TH/MM3 (1.0-4.8); MEAN CELL VOLUME 81.2 FL (80.0-100.0); MEAN CORPUSCULAR HEMOGLOBIN 26.4 PG (27.0-34.0); MEAN CORPUSCULAR HGB CONC 32.5 % (32.0-36.0); MONO % 11.7 % (0.0-8.0); PLATELET COUNT 276 TH/MM3 (150-450); RED BLOOD COUNT 4.32 MIL/MM3 (4.50-5.90); RED CELL DISTRIBUTION WIDTH 28.9 % (11.6-17.2); WHITE BLOOD COUNT 5.7 TH/MM3 (4.0-11.0)
[2017-02-08 07:20] LABS: HEMO FLAGS AUTO DIFF
[2017-02-08 07:51] LABS: ALT (GPT) 101 U/L (12-78); ANION GAP 9 MEQ/L (5-15); AST (GOT) 45 U/L (15-37); BICARBONATE 27.2 MEQ/L (21.0-32.0); BLOOD UREA NITROGEN 5 MG/DL (7-18); CHLORIDE 104 MEQ/L (98-107); GLOMERULAR FILTRATION RATE 109 ML/MIN (>89); POTASSIUM 3.6 MEQ/L (3.5-5.1); SODIUM (NA) 140 MEQ/L (136-145)
[2017-02-08 07:53] LABS: ALKALINE PHOSPHATASE 191 U/L (45-117); TOTAL BILIRUBIN ADULT 0.3 MG/DL (0.2-1.0)
[2017-02-08 08:27] LABS: BANDS 2 % (0-6); MYELOCYTES 2 % (0-0); NEUTROPHIL # MANUAL DIFF 3.8 TH/MM3 (1.8-7.7); PLATELET ESTIMATE SMEAR NORMAL (NORMAL); PLATELET MORPHOLOGY NORMAL (NORMAL); POLYS (SEG NEUTROPHILS) 62 % (16-70); SCAN/DIFF FINAL DIFF MANUAL; WBC DIFF SAMPLE 100
[2017-02-08] MEDS: SODIUM CHLORIDE 0.9% FLUSH 10 ML FLUSH IV FLUSH SCH ×2 (09:00→20:27)
[2017-02-08] MEDS: BUDESONIDE-FORMOTEROL 160/4.5 MCG INHALER INH SCH ×2 (09:00→20:24)
[2017-02-08] MEDS: metFORMIN HCL 500 MG TAB PO SCH ×2 (09:00→17:29)
[2017-02-08] MEDS: FLUCONAZOLE 100 MG TAB PO SCH ×2 (09:55→20:25)
[2017-02-08] MEDS: POTASSIUM CHLORIDE 20 MEQ CONTROLLED RELEASE TAB PO SCH ×2 (09:55→20:25)
[2017-02-08] MEDS: FERROUS SULFATE 325 MG (65 MG ELEMENTAL IRON) TAB PO SCH ×2 (09:55→20:25)
[2017-02-08] MEDS: APIXABAN 5 MG TABLET PO SCH ×2 (09:55→20:25)
[2017-02-08] MEDS: TAMSULOSIN HCL 0.4 MG CAP PO SCH (09:55)
[2017-02-08] MEDS: DILTIAZEM-CD 180 MG CAP ER PO SCH (09:55)
[2017-02-08] MEDS: DOCUSATE SODIUM 50 MG/SENNA 8.6 MG TAB PO SCH ×2 (09:55→20:14)
[2017-02-08] MEDS: FUROSEMIDE 40 MG TAB PO SCH (09:55)
[2017-02-08] MEDS: cefTRIAXone INJ 1,000 MG in SODIUM CHLORIDE 0.9% INJ 100 ML IV SCH (09:56)
--- NOTE | 2017-02-08 10:12 | HHI.PR ---
Subjective History of Present Illness Patient feel better low potassium resolved. patient have urinary retention s/p foleys catheter in urology input noted DC Plan when ok with urology. d/ w SHAZIA Chan. Review of Systems Constitutional Constitutional: Fatigue, Weakness Pulmonary Respiratory: Shortness of Breath, Wheezing Vitals/Results Intake & Output 02/07/17 02/07/17 02/08/17 15:00 23:00 07:00 Intake Total 940 ml 480 ml 4 ml Output Total 1200 ml 450 ml 1000 ml Balance -260 ml 30 ml -996 ml Intake Oral 840 ml 480 ml 0 ml IV Total 100 ml 4 ml Output Urine Total 1200 ml 450 ml 1000 ml # Bowel Movements 1 3 0 Vital Signs Vital Signs Date Time Temp Pulse Resp B/P Pulse Ox O2 Delivery O2 Flow Rate FiO2 02/08/17 08:00 97.6 115 17 126/84 97 02/08/17 07:36 2.00 21 02/08/17 04:32 97.9 120 18 128/80 95 02/08/17 03:28 116 02/07/17 23:10 97.8 114 18 122/82 96 02/07/17 21:42 98 21 02/07/17 20:55 98 Room Air 02/07/17 16:00 97.6 117 20 139/85 97 02/07/17 12:00 97.7 123 20 125/90 96 CBC/BMP: 02/08/17 0609 02/08/17 0609 Lab Results Laboratory Tests Test 02/08/17 06:09 White Blood Count 5.7 TH/MM3 Red Blood Count 4.32 MIL/MM3 Hemoglobin 11.4 GM/DL Hematocrit 35.1 % Mean Corpuscular Volume 81.2 FL Mean Corpuscular Hemoglobin 26.4 PG Mean Corpuscular Hemoglobin 32.5 % Concent Red Cell Distribution Width 28.9 % Platelet Count 276 TH/MM3 Mean Platelet Volume 7.8 FL Neutrophils (%) (Auto) 66.0 % Lymphocytes (%) (Auto) 21.0 % Monocytes (%) (Auto) 11.7 % Eosinophils (%) (Auto) 0.5 % Basophils (%) (Auto) 0.8 % Neutrophils # (Auto) 3.8 TH/MM3 Lymphocytes # (Auto) 1.2 TH/MM3 Monocytes # (Auto) 0.7 TH/MM3 Eosinophils # (Auto) 0.0 TH/MM3 Basophils # (Auto) 0.0 TH/MM3 CBC Comment AUTO DIFF Differential Total Cells 100 Counted Neutrophils % (Manual) 62 % Band Neutrophils % 2 % Lymphocytes % 22 % Monocytes % 12 % Neutrophils # (Manual) 3.8 TH/MM3 Myelocytes 2 % Differential Comment FINAL DIFF MANUAL Platelet Estimate NORMAL Platelet Morphology Comment NORMAL Sodium Level 140 MEQ/L Potassium Level 3.6 MEQ/L Chloride Level 104 MEQ/L Carbon Dioxide Level 27.2 MEQ/L Anion Gap 9 MEQ/L Blood Urea Nitrogen 5 MG/DL Creatinine 0.75 MG/DL Estimat Glomerular Filtration 109 ML/MIN Rate Random Glucose 119 MG/DL Calcium Level 9.0 MG/DL Total Bilirubin 0.3 MG/DL Aspartate Amino Transf 45 U/L (AST/SGOT) Alanine Aminotransferase 101 U/L (ALT/SGPT) Alkaline Phosphatase 191 U/L Total Protein 6.0 GM/DL Albumin 3.0 GM/DL Physical Exam General General Appearance: Well Developed, Well Nourished, No Acute Distress, Comfortable Eyes Eye Exam: Pupils Equal, Pupils Reactive, Sclera White, Extraocular Movement Intact Throat Throat Exam: Oral Mucosa [place] & Moist, Oral Pharynx Normal Neck Neck Exam: Neck Supple, Trachea Midline Pulmonary Resp Remarks Bilateral wheezing. Cardiology CV Exam: Regular, Normal Sinus Rhythm Gastrointestinal/Abdomen GI Exam: Soft, Non-Tender, Bowel Sounds Present Musculoskeletal MS Exam: Normal Gait, Normal Tone, Good Strength Integumentary Skin Exam: Clear, Warm, Dry, Intact Extremeties Extremities Exam: Pitting Edema Neurologic Neuro Exam: Alert, Awake, Oriented, Speech Clear, Moving All Extremities, No Focal Deficits VTE Prophylaxis VTE Prophylaxis Meds: Heparin PUD Prophylasis PUD Prophylaxis: Protonix Assessment/Plan Assessment/Plan ASSESSMENT AND PLAN 1. This is a 51-year male who came to the ER diagnosed with altered mental status most likely secondary to hyperglycemia and dehydration. The patient's altered mental status is totally resolved. The patient is awake and oriented x4. 2. DKA. The patient had a blood sugar of 890, better now . The patient is on insulin sliding scale. on metformin 500 mg PO BID. Will monitor blood sugar closely. 3. History of COPD. Continue home medication. 4. History of anxiety. Continue with Ativan 0.5 mg p.o. q.8h. 5. History of hypertension. Continue with diltiazem. 6. History of tachycardia. Continue with diltiazem. 7. Leg edema. Continue furosemide 40 mg p.o. daily. 8. History of GERD. Continue with Carafate and Protonix 40 mg p.o. daily. 9. History of DVT and pulmonary embolism. Continue with Eliquis 5 mg twice a day. 10. History of hyperlipidemia. Continue with Lipitor 20 mg p.o. daily. 11. History of fungal infection of the right hip. Continue with Diflucan 100 mg twice a day. 12. DVT prophylaxis. The patient is on Eliquis. 13. GI prophylaxis with Protonix and Carafate. 14. High LFTs. Will monitor. 15. Pseudohyponatremia, resolved. 16. Leukocytosis. Will monitor. 17. Anemia. The patient has iron deficiency. The patient on ferrous sulfate 325 mg p.o. BID. 18. Hypokalemia resolved. 19. Burning / painful urination checked urine and s/p pyridium for 2 days and continue with rocephin 1 gm IV Daily. 20. Urinary retention s/p foleys catheter in urology input nolted Check CBC and CMP in the morning. We are going to manage the patient on a daily basis and make recommendations on a daily basis. DC Plan when ok with urology. Discussed Condition with: Patient Myron Woodward MD Feb 08, 2017 10:12
[2017-02-08] MEDS: guaiFENesin/DEXTROMETHORPHAN 200 MG/20 MG/10 ML CUP PO PRN (17:32)
[2017-02-08] MEDS: PANTOPRAZOLE SOD 40 MG DELAYED RELEASE TAB PO SCH (20:25)
[2017-02-08] MEDS: MONTELUKAST SODIUM 10 MG TAB PO SCH (20:25)
[2017-02-08] MEDS: ATORVASTATIN 20 MG TAB PO SCH (20:25)
[2017-02-09] VITALS (9 sets, daily range): BP systolic 118–140; BP diastolic 78–90; PULSE 103–124; RESP 16–20; TEMP 97.2–97.9; O2SAT 91–98
[2017-02-09 00:41] LABS: C. DIFF EPI 027 PRESUMPTIVE NEGATIVE (NEGATIVE); C. DIFF TOXIN PCR NEGATIVE (NEGATIVE)
[2017-02-09] MEDS: LORazepam 0.5 MG TAB PO SCH ×3 (01:13→17:08)
[2017-02-09] MEDS: LOPERAMIDE HCL 2 MG CAP PO PRN ×2 (01:13→08:41)
[2017-02-09] MEDS: RESP: LEVALBUTEROL HYDROCHLORIDE 1.25 MG/3 ML NEB (SCH) NEB ×4 (03:15→21:44)
[2017-02-09] MEDS: MEDIUM DOSE INSULIN NOVOLOG SUPPLEMENTAL SCALE SQ SCH ×4 (07:00→20:17)
[2017-02-09] MEDS: ONDANSETRON HCL 4 MG/2 ML VIAL IVP PRN ×3 (07:25→20:11)
[2017-02-09] MEDS: SUCRALFATE 1 GM TAB PO SCH ×2 (07:29→15:25)
[2017-02-09 08:35] LABS: AUTOMATED NEUTROPHIL # 3.8 TH/MM3 (1.8-7.7); BASOPHIL # 0.1 TH/MM3 (0-0.2); BASOPHIL % 1.3 % (0.0-2.0); EOSINOPHIL % 0.5 % (0.0-4.0); HEMATOCRIT 33.9 % (39.0-51.0); LYMPHOCYTE # 1.2 TH/MM3 (1.0-4.8); MEAN CELL VOLUME 80.3 FL (80.0-100.0); MEAN CORPUSCULAR HEMOGLOBIN 26.3 PG (27.0-34.0); MEAN CORPUSCULAR HGB CONC 32.7 % (32.0-36.0); MONO % 12.2 % (0.0-8.0); PLATELET COUNT 311 TH/MM3 (150-450); RED BLOOD COUNT 4.22 MIL/MM3 (4.50-5.90); RED CELL DISTRIBUTION WIDTH 28.1 % (11.6-17.2); WHITE BLOOD COUNT 5.8 TH/MM3 (4.0-11.0)
[2017-02-09 08:36] LABS: HEMO FLAGS AUTO DIFF
[2017-02-09] MEDS: DILTIAZEM-CD 180 MG CAP ER PO SCH (08:41)
[2017-02-09] MEDS: SODIUM CHLORIDE 0.9% FLUSH 10 ML FLUSH IV FLUSH SCH ×2 (08:41→20:10)
[2017-02-09] MEDS: FUROSEMIDE 40 MG TAB PO SCH (08:41)
[2017-02-09] MEDS: FLUCONAZOLE 100 MG TAB PO SCH ×2 (08:41→20:17)
[2017-02-09] MEDS: APIXABAN 5 MG TABLET PO SCH ×2 (08:41→20:17)
[2017-02-09] MEDS: DOCUSATE SODIUM 50 MG/SENNA 8.6 MG TAB PO SCH ×2 (08:42→20:18)
[2017-02-09] MEDS: FERROUS SULFATE 325 MG (65 MG ELEMENTAL IRON) TAB PO SCH ×2 (08:42→20:17)
[2017-02-09] MEDS: TAMSULOSIN HCL 0.4 MG CAP PO SCH (08:42)
[2017-02-09] MEDS: POTASSIUM CHLORIDE 20 MEQ CONTROLLED RELEASE TAB PO SCH ×2 (08:42→20:17)
[2017-02-09] MEDS: metFORMIN HCL 500 MG TAB PO SCH ×2 (08:42→17:08)
[2017-02-09] MEDS: BUDESONIDE-FORMOTEROL 160/4.5 MCG INHALER INH SCH ×2 (08:43→20:10)
[2017-02-09] MEDS: ACETAMINOPHEN/HYDROcodone 325 MG/5 MG TAB PO PRN (08:48)
[2017-02-09] MEDS: cefTRIAXone INJ 1,000 MG in SODIUM CHLORIDE 0.9% INJ 100 ML IV SCH (08:49)
[2017-02-09 09:00] LABS: ANION GAP 10 MEQ/L (5-15); AST (GOT) 37 U/L (15-37); BICARBONATE 26.7 MEQ/L (21.0-32.0); BLOOD UREA NITROGEN 6 MG/DL (7-18); CHLORIDE 105 MEQ/L (98-107); GLOMERULAR FILTRATION RATE 122 ML/MIN (>89); POTASSIUM 3.1 MEQ/L (3.5-5.1); SODIUM (NA) 142 MEQ/L (136-145)
[2017-02-09 09:03] LABS: ALKALINE PHOSPHATASE 179 U/L (45-117); ALT (GPT) 94 U/L (12-78); TOTAL BILIRUBIN ADULT 0.3 MG/DL (0.2-1.0)
[2017-02-09 09:28] LABS: BANDS 1 % (0-6); CORRECTED NUCLEATED RBC 1 /100 WBC (0-0); MYELOCYTES 4 % (0-0); NEUTROPHIL # MANUAL DIFF 4.3 TH/MM3 (1.8-7.7); OVALOCYTES 1+ (NORMAL); POLYS (SEG NEUTROPHILS) 69 % (16-70); WBC DIFF SAMPLE 100
[2017-02-09 09:30] LABS: SCAN/DIFF FINAL DIFF MANUAL
--- NOTE | 2017-02-09 10:58 | HHI.PR ---
Subjective History of Present Illness Patient feel better Hypokalemia/ Hypomagnesemia will replace. patient have urinary retention s/p foleys catheter in urology input noted DC Plan when ok with urology. Review of Systems Constitutional Constitutional: Fatigue, Weakness Pulmonary Respiratory: Shortness of Breath, Wheezing Vitals/Results Intake & Output 02/08/17 02/08/17 02/09/17 15:00 23:00 07:00 Intake Total 1060 ml Output Total 1100 ml 850 ml 650 ml Balance -40 ml -850 ml -650 ml Intake Oral 960 ml IV Total 100 ml Output Urine Total 1100 ml 850 ml 650 ml Bladder Scan Volume Amount 999 ml # Bowel Movements 1 0 Vital Signs Vital Signs Date Time Temp Pulse Resp B/P Pulse Ox O2 Delivery O2 Flow Rate FiO2 02/09/17 08:30 Room Air 02/09/17 08:00 97.2 113 20 119/88 95 02/09/17 07:44 96 21 02/09/17 04:00 97.5 122 16 140/79 95 02/09/17 03:17 95 21 02/09/17 00:00 97.9 124 16 118/90 95 02/08/17 21:32 96 21 02/08/17 20:28 Room Air 02/08/17 20:00 97.9 128 16 115/75 95 02/08/17 20:00 128 02/08/17 16:00 98.2 120 17 134/87 96 02/08/17 12:00 97.7 120 17 149/80 98 CBC/BMP: 02/09/17 0649 02/09/17 0649 Lab Results Laboratory Tests Test 02/08/17 02/09/17 23:45 06:49 Stool C. difficile Toxin (PCR) NEGATIVE Stl C. difficile Toxin PRESUMPTIVE Epiderm 027 NEGATIVE White Blood Count 5.8 TH/MM3 Red Blood Count 4.22 MIL/MM3 Hemoglobin 11.1 GM/DL Hematocrit 33.9 % Mean Corpuscular Volume 80.3 FL Mean Corpuscular Hemoglobin 26.3 PG Mean Corpuscular Hemoglobin 32.7 % Concent Red Cell Distribution Width 28.1 % Platelet Count 311 TH/MM3 Mean Platelet Volume 7.6 FL Neutrophils (%) (Auto) 65.0 % Lymphocytes (%) (Auto) 21.0 % Monocytes (%) (Auto) 12.2 % Eosinophils (%) (Auto) 0.5 % Basophils (%) (Auto) 1.3 % Neutrophils # (Auto) 3.8 TH/MM3 Lymphocytes # (Auto) 1.2 TH/MM3 Monocytes # (Auto) 0.7 TH/MM3 Eosinophils # (Auto) 0.0 TH/MM3 Basophils # (Auto) 0.1 TH/MM3 CBC Comment AUTO DIFF Differential Total Cells 100 Counted Neutrophils % (Manual) 69 % Band Neutrophils % 1 % Lymphocytes % 19 % Monocytes % 7 % Neutrophils # (Manual) 4.3 TH/MM3 Myelocytes 4 % Nucleated Red Blood Cells 1 /100 WBC Differential Comment FINAL DIFF MANUAL Ovalocytes 1+ Acanthocytes Sodium Level 142 MEQ/L Potassium Level 3.1 MEQ/L Chloride Level 105 MEQ/L Carbon Dioxide Level 26.7 MEQ/L Anion Gap 10 MEQ/L Blood Urea Nitrogen 6 MG/DL Creatinine 0.68 MG/DL Estimat Glomerular Filtration 122 ML/MIN Rate Random Glucose 114 MG/DL Calcium Level 8.3 MG/DL Total Bilirubin 0.3 MG/DL Aspartate Amino Transf 37 U/L (AST/SGOT) Alanine Aminotransferase 94 U/L (ALT/SGPT) Alkaline Phosphatase 179 U/L Total Protein 5.8 GM/DL Albumin 3.1 GM/DL Physical Exam General General Appearance: Well Developed, Well Nourished, No Acute Distress, Comfortable Eyes Eye Exam: Pupils Equal, Pupils Reactive, Sclera White, Extraocular Movement Intact Throat Throat Exam: Oral Mucosa [place] & Moist, Oral Pharynx Normal Neck Neck Exam: Neck Supple, Trachea Midline Pulmonary Resp Remarks Bilateral wheezing. Cardiology CV Exam: Regular, Normal Sinus Rhythm Gastrointestinal/Abdomen GI Exam: Soft, Non-Tender, Bowel Sounds Present Musculoskeletal MS Exam: Normal Gait, Normal Tone, Good Strength Integumentary Skin Exam: Clear, Warm, Dry, Intact Extremeties Extremities Exam: Pitting Edema Neurologic Neuro Exam: Alert, Awake, Oriented, Speech Clear, Moving All Extremities, No Focal Deficits VTE Prophylaxis VTE Prophylaxis Meds: Heparin PUD Prophylasis PUD Prophylaxis: Protonix Assessment/Plan Assessment/Plan ASSESSMENT AND PLAN 1. This is a 51-year male who came to the ER diagnosed with altered mental status most likely secondary to hyperglycemia and dehydration. The patient's altered mental status is totally resolved. The patient is awake and oriented x4. 2. DKA. The patient had a blood sugar of 890, better now . The patient is on insulin sliding scale. on metformin 500 mg PO BID. Will monitor blood sugar closely. 3. History of COPD. Continue home medication. 4. History of anxiety. Continue with Ativan 0.5 mg p.o. q.8h. 5. History of hypertension. Continue with diltiazem. 6. History of tachycardia. Continue with diltiazem. 7. Leg edema. Continue furosemide 40 mg p.o. daily. 8. History of GERD. Continue with Carafate and Protonix 40 mg p.o. daily. 9. History of DVT and pulmonary embolism. Continue with Eliquis 5 mg twice a day. 10. History of hyperlipidemia. Continue with Lipitor 20 mg p.o. daily. 11. History of fungal infection of the right hip. Continue with Diflucan 100 mg twice a day. 12. DVT prophylaxis. The patient is on Eliquis. 13. GI prophylaxis with Protonix and Carafate. 14. High LFTs. Will monitor. 15. Pseudohyponatremia, resolved. 16. Leukocytosis. Will monitor. 17. Anemia. The patient has iron deficiency. The patient on ferrous sulfate 325 mg p.o. BID. 18. Hypokalemia/ Hypomagnesemia will replace 19. Burning / painful urination checked urine and s/p pyridium for 2 days and continue with rocephin 1 gm IV Daily. 20. Urinary retention s/p foleys catheter in urology input nolted Check CBC and CMP in the morning. We are going to manage the patient on a daily basis and make recommendations on a daily basis. DC Plan when ok with urology. Discussed Condition with: Patient Myron Woodward MD Feb 09, 2017 10:58
[2017-02-09] MEDS ORDERED: POTASSIUM CHLORIDE 10 MEQ CONTROLLED RELEASE TAB PO ONE (12:00)
[2017-02-09] MEDS ORDERED: MAGNESIUM SULFATE 4 GM PREMIX 100 ML IV ONE (12:00)
[2017-02-09] MEDS: metroNIDAZOLE 500 MG INJ 100 ML IV SCH ×2 (12:24→20:09)
[2017-02-09] MEDS ORDERED: MAGNESIUM SULFATE 4 GM/NS 100 ML IV ONE ×2 (12:30)
[2017-02-09] MEDS: MAGNESIUM SULFATE 1 GM PREMIX 100 ML IV SCH ×3 (13:26→15:24)
[2017-02-09] MEDS: ATORVASTATIN 20 MG TAB PO SCH (20:17)
[2017-02-09] MEDS: PANTOPRAZOLE SOD 40 MG DELAYED RELEASE TAB PO SCH (20:17)
[2017-02-09] MEDS: MONTELUKAST SODIUM 10 MG TAB PO SCH (20:17)
[2017-02-10] VITALS (9 sets, daily range): BP systolic 115–139; BP diastolic 70–82; PULSE 91–107; RESP 16–22; TEMP 97.4–97.9; O2SAT 95–98
[2017-02-10] MEDS: LORazepam 0.5 MG TAB PO SCH ×3 (02:00→16:21)
[2017-02-10] MEDS: RESP: LEVALBUTEROL HYDROCHLORIDE 1.25 MG/3 ML NEB (SCH) NEB ×4 (02:53→19:46)
[2017-02-10] MEDS: metroNIDAZOLE 500 MG INJ 100 ML IV SCH ×3 (05:08→20:38)
[2017-02-10] MEDS: ONDANSETRON HCL 4 MG/2 ML VIAL IVP PRN ×4 (05:12→22:28)
[2017-02-10] MEDS: ACETAMINOPHEN/HYDROcodone 325 MG/5 MG TAB PO PRN (05:13)
[2017-02-10] MEDS: MEDIUM DOSE INSULIN NOVOLOG SUPPLEMENTAL SCALE SQ SCH ×4 (06:07→20:39)
[2017-02-10] MEDS: SUCRALFATE 1 GM TAB PO SCH ×2 (06:07→16:00)
[2017-02-10 06:55] LABS: AUTOMATED NEUTROPHIL # 3.6 TH/MM3 (1.8-7.7); BASOPHIL # 0.1 TH/MM3 (0-0.2); BASOPHIL % 1.3 % (0.0-2.0); EOSINOPHIL % 0.8 % (0.0-4.0); HEMATOCRIT 32.6 % (39.0-51.0); LYMPH % 19.9 % (9.0-44.0); LYMPHOCYTE # 1.1 TH/MM3 (1.0-4.8); MEAN CELL VOLUME 80.3 FL (80.0-100.0); MEAN CORPUSCULAR HEMOGLOBIN 26.7 PG (27.0-34.0); MEAN CORPUSCULAR HGB CONC 33.2 % (32.0-36.0); MONO % 12.5 % (0.0-8.0); NEUT % 65.5 % (16.0-70.0); PLATELET COUNT 304 TH/MM3 (150-450); RED BLOOD COUNT 4.06 MIL/MM3 (4.50-5.90); RED CELL DISTRIBUTION WIDTH 27.6 % (11.6-17.2); WHITE BLOOD COUNT 5.5 TH/MM3 (4.0-11.0)
[2017-02-10 07:02] LABS: HEMO FLAGS AUTO DIFF
[2017-02-10 07:16] LABS: ALT (GPT) 81 U/L (12-78); ANION GAP 9 MEQ/L (5-15); AST (GOT) 37 U/L (15-37); BICARBONATE 25.4 MEQ/L (21.0-32.0); BLOOD UREA NITROGEN 3 MG/DL (7-18); CHLORIDE 108 MEQ/L (98-107); GLOMERULAR FILTRATION RATE 111 ML/MIN (>89); POTASSIUM 3.5 MEQ/L (3.5-5.1); SODIUM (NA) 142 MEQ/L (136-145)
[2017-02-10 07:18] LABS: ALKALINE PHOSPHATASE 172 U/L (45-117); TOTAL BILIRUBIN ADULT 0.2 MG/DL (0.2-1.0)
[2017-02-10] MEDS: DILTIAZEM-CD 180 MG CAP ER PO SCH (08:07)
[2017-02-10] MEDS: APIXABAN 5 MG TABLET PO SCH ×2 (08:07→20:38)
[2017-02-10] MEDS: FUROSEMIDE 40 MG TAB PO SCH (08:08)
[2017-02-10] MEDS: FLUCONAZOLE 100 MG TAB PO SCH ×2 (08:08→20:39)
[2017-02-10] MEDS: TAMSULOSIN HCL 0.4 MG CAP PO SCH (08:08)
[2017-02-10] MEDS: BUDESONIDE-FORMOTEROL 160/4.5 MCG INHALER INH SCH ×2 (08:08→20:38)
[2017-02-10] MEDS: POTASSIUM CHLORIDE 20 MEQ CONTROLLED RELEASE TAB PO SCH ×2 (08:08→20:39)
[2017-02-10] MEDS: FERROUS SULFATE 325 MG (65 MG ELEMENTAL IRON) TAB PO SCH ×2 (08:08→20:39)
[2017-02-10] MEDS: metFORMIN HCL 500 MG TAB PO SCH ×2 (08:10→17:43)
[2017-02-10] MEDS: SODIUM CHLORIDE 0.9% FLUSH 10 ML FLUSH IV FLUSH SCH ×2 (08:11→20:40)
[2017-02-10] MEDS: DOCUSATE SODIUM 50 MG/SENNA 8.6 MG TAB PO SCH ×2 (08:12→20:39)
[2017-02-10 08:47] LABS: BANDS 1 % (0-6); CORRECTED NUCLEATED RBC 1 /100 WBC (0-0); METAMYELOCYTES 1 % (0-1); MYELOCYTES 3 % (0-0); NEUTROPHIL # MANUAL DIFF 3.8 TH/MM3 (1.8-7.7); POLYS (SEG NEUTROPHILS) 64 % (16-70); WBC DIFF SAMPLE 100
[2017-02-10 08:48] LABS: PLATELET ESTIMATE SMEAR NORMAL (NORMAL); PLATELET MORPHOLOGY NORMAL (NORMAL); SCAN/DIFF FINAL DIFF MANUAL
--- NOTE | 2017-02-10 10:32 | HHI.PR ---
Subjective History of Present Illness Patient feel better Hypokalemia resolved.. patient have urinary retention s /p foleys catheter in urology input noted DC Plan when ok with urology. Review of Systems Constitutional Constitutional: Fatigue, Weakness Pulmonary Respiratory: Shortness of Breath, Wheezing Vitals/Results Intake & Output 02/09/17 02/09/17 02/10/17 15:00 23:00 07:00 Intake Total 480 ml 240 ml 920 ml Output Total 850 ml 1500 ml 450 ml Balance -370 ml -1260 ml 470 ml Intake Oral 480 ml 240 ml 920 ml Output Urine Total 850 ml 1500 ml 450 ml # Bowel Movements 2 1 0 Vital Signs Vital Signs Date Time Temp Pulse Resp B/P Pulse Ox O2 Delivery O2 Flow Rate FiO2 02/10/17 09:45 98 21 02/10/17 08:10 Room Air 02/10/17 08:10 93 02/10/17 08:02 97.5 91 17 129/82 97 02/10/17 04:00 97.4 99 18 121/77 96 02/10/17 00:00 97.6 107 16 115/77 95 02/09/17 21:13 96 21 02/09/17 20:20 Room Air 02/09/17 20:00 97.6 103 18 126/85 98 02/09/17 16:00 97.7 107 18 125/78 91 02/09/17 12:00 97.4 122 20 118/83 96 CBC/BMP: 02/10/17 0534 02/10/17 0534 Lab Results Laboratory Tests Test 02/10/17 05:34 White Blood Count 5.5 TH/MM3 Red Blood Count 4.06 MIL/MM3 Hemoglobin 10.8 GM/DL Hematocrit 32.6 % Mean Corpuscular Volume 80.3 FL Mean Corpuscular Hemoglobin 26.7 PG Mean Corpuscular Hemoglobin 33.2 % Concent Red Cell Distribution Width 27.6 % Platelet Count 304 TH/MM3 Mean Platelet Volume 7.4 FL Neutrophils (%) (Auto) 65.5 % Lymphocytes (%) (Auto) 19.9 % Monocytes (%) (Auto) 12.5 % Eosinophils (%) (Auto) 0.8 % Basophils (%) (Auto) 1.3 % Neutrophils # (Auto) 3.6 TH/MM3 Lymphocytes # (Auto) 1.1 TH/MM3 Monocytes # (Auto) 0.7 TH/MM3 Eosinophils # (Auto) 0.0 TH/MM3 Basophils # (Auto) 0.1 TH/MM3 CBC Comment AUTO DIFF Differential Total Cells 100 Counted Neutrophils % (Manual) 64 % Band Neutrophils % 1 % Lymphocytes % 21 % Monocytes % 10 % Neutrophils # (Manual) 3.8 TH/MM3 Metamyelocytes 1 % Myelocytes 3 % Nucleated Red Blood Cells 1 /100 WBC Differential Comment FINAL DIFF MANUAL Platelet Estimate NORMAL Platelet Morphology Comment NORMAL Sodium Level 142 MEQ/L Potassium Level 3.5 MEQ/L Chloride Level 108 MEQ/L Carbon Dioxide Level 25.4 MEQ/L Anion Gap 9 MEQ/L Blood Urea Nitrogen 3 MG/DL Creatinine 0.74 MG/DL Estimat Glomerular Filtration 111 ML/MIN Rate Random Glucose 111 MG/DL Calcium Level 8.7 MG/DL Total Bilirubin 0.2 MG/DL Aspartate Amino Transf 37 U/L (AST/SGOT) Alanine Aminotransferase 81 U/L (ALT/SGPT) Alkaline Phosphatase 172 U/L Total Protein 5.7 GM/DL Albumin 2.9 GM/DL Physical Exam General General Appearance: Well Developed, Well Nourished, No Acute Distress, Comfortable Eyes Eye Exam: Pupils Equal, Pupils Reactive, Sclera White, Extraocular Movement Intact Throat Throat Exam: Oral Mucosa [place] & Moist, Oral Pharynx Normal Neck Neck Exam: Neck Supple, Trachea Midline Pulmonary Resp Remarks Bilateral wheezing. Cardiology CV Exam: Regular, Normal Sinus Rhythm Gastrointestinal/Abdomen GI Exam: Soft, Non-Tender, Bowel Sounds Present Musculoskeletal MS Exam: Normal Gait, Normal Tone, Good Strength Integumentary Skin Exam: Clear, Warm, Dry, Intact Extremeties Extremities Exam: Pitting Edema Neurologic Neuro Exam: Alert, Awake, Oriented, Speech Clear, Moving All Extremities, No Focal Deficits VTE Prophylaxis VTE Prophylaxis Meds: Heparin PUD Prophylasis PUD Prophylaxis: Protonix Assessment/Plan Assessment/Plan ASSESSMENT AND PLAN 1. This is a 51-year male who came to the ER diagnosed with altered mental status most likely secondary to hyperglycemia and dehydration. The patient's altered mental status is totally resolved. The patient is awake and oriented x4. 2. DKA. The patient had a blood sugar of 890, better now . The patient is on insulin sliding scale. on metformin 500 mg PO BID. Will monitor blood sugar closely. 3. History of COPD. Continue home medication. 4. History of anxiety. Continue with Ativan 0.5 mg p.o. q.8h. 5. History of hypertension. Continue with diltiazem. 6. History of tachycardia. Continue with diltiazem. 7. Leg edema. Continue furosemide 40 mg p.o. daily. 8. History of GERD. Continue with Carafate and Protonix 40 mg p.o. daily. 9. History of DVT and pulmonary embolism. Continue with Eliquis 5 mg twice a day. 10. History of hyperlipidemia. Continue with Lipitor 20 mg p.o. daily. 11. History of fungal infection of the right hip. Continue with Diflucan 100 mg twice a day. 12. DVT prophylaxis. The patient is on Eliquis. 13. GI prophylaxis with Protonix and Carafate. 14. High LFTs. Will monitor. 15. Pseudohyponatremia, resolved. 16. Leukocytosis. Will monitor. 17. Anemia. The patient has iron deficiency. The patient on ferrous sulfate 325 mg p.o. BID. 18. Hypokalemia/ Hypomagnesemia resolved. 19. Burning / painful urination checked urine and s/p pyridium for 2 days and continue with rocephin 1 gm IV Daily. 20. Urinary retention s/p foleys catheter in urology input nolted Check CBC and CMP in the morning. We are going to manage the patient on a daily basis and make recommendations on a daily basis. DC Plan when ok with urology. Discussed Condition with: Patient Myron Woodward MD Feb 10, 2017 10:32
[2017-02-10] MEDS: LOPERAMIDE HCL 2 MG CAP PO PRN (16:21)
[2017-02-10] MEDS: PANTOPRAZOLE SOD 40 MG DELAYED RELEASE TAB PO SCH (20:39)
[2017-02-10] MEDS: MONTELUKAST SODIUM 10 MG TAB PO SCH (20:39)
[2017-02-10] MEDS: ATORVASTATIN 20 MG TAB PO SCH (20:39)
[2017-02-11] VITALS (9 sets, daily range): BP systolic 118–132; BP diastolic 72–88; PULSE 95–104; RESP 16–20; TEMP 97.4–99.8; O2SAT 96–100
[2017-02-11] MEDS: metroNIDAZOLE 500 MG INJ 100 ML IV SCH ×3 (03:01→20:24)
[2017-02-11] MEDS: LORazepam 0.5 MG TAB PO SCH ×3 (03:01→17:51)
[2017-02-11] MEDS: ACETAMINOPHEN/HYDROcodone 325 MG/5 MG TAB PO PRN ×2 (03:05→09:27)
[2017-02-11] MEDS: RESP: LEVALBUTEROL HYDROCHLORIDE 1.25 MG/3 ML NEB (SCH) NEB ×4 (03:39→21:12)
[2017-02-11] MEDS: SUCRALFATE 1 GM TAB PO SCH ×2 (06:19→15:52)
[2017-02-11] MEDS: MEDIUM DOSE INSULIN NOVOLOG SUPPLEMENTAL SCALE SQ SCH ×4 (06:19→20:25)
[2017-02-11] MEDS: ONDANSETRON HCL 4 MG/2 ML VIAL IVP PRN ×3 (06:19→20:23)
--- NOTE | 2017-02-11 07:47 | HHI.PR ---
Subjective History of Present Illness Patient feel better Hypokalemia will replace..diarrhea better... patient have urinary retention s/p foleys catheter in urology input noted DC Plan when ok with urology. Review of Systems Constitutional Constitutional: Fatigue, Weakness Pulmonary Respiratory: Shortness of Breath, Wheezing Vitals/Results Intake & Output 02/10/17 02/10/17 02/11/17 15:00 23:00 07:00 Intake Total 720 ml 225 ml 226 ml Output Total 850 ml 1100 ml Balance -130 ml 225 ml -874 ml Intake Oral 720 ml 120 ml 120 ml IV Total 105 ml 106 ml Output Urine Total 850 ml 1100 ml # Voids 0 # Bowel Movements 3 0 0 Vital Signs Vital Signs Date Time Temp Pulse Resp B/P Pulse Ox O2 Delivery O2 Flow Rate FiO2 02/11/17 05:45 97.8 95 20 125/72 96 02/11/17 03:41 97 Nasal Cannula 21 02/11/17 01:10 101 02/11/17 00:00 99.8 104 20 118/84 98 02/11/17 00:00 Room Air 02/10/17 20:40 Room Air 02/10/17 20:00 97.9 106 22 125/81 98 02/10/17 19:48 98 21 02/10/17 16:03 97.6 91 18 123/70 98 02/10/17 12:31 97.8 104 18 139/81 96 02/10/17 09:45 98 21 02/10/17 08:10 Room Air 02/10/17 08:10 93 02/10/17 08:02 97.5 91 17 129/82 97 CBC/BMP: 02/10/17 0534 02/10/17 0534 Lab Results Laboratory Tests Test 02/10/17 11:39 Magnesium Level 2.1 MG/DL Physical Exam General General Appearance: Well Developed, Well Nourished, No Acute Distress, Comfortable Eyes Eye Exam: Pupils Equal, Pupils Reactive, Sclera White, Extraocular Movement Intact Throat Throat Exam: Oral Mucosa [place] & Moist, Oral Pharynx Normal Neck Neck Exam: Neck Supple, Trachea Midline Pulmonary Resp Remarks Bilateral wheezing. Cardiology CV Exam: Regular, Normal Sinus Rhythm Gastrointestinal/Abdomen GI Exam: Soft, Non-Tender, Bowel Sounds Present Musculoskeletal MS Exam: Normal Gait, Normal Tone, Good Strength Integumentary Skin Exam: Clear, Warm, Dry, Intact Extremeties Extremities Exam: Pitting Edema Neurologic Neuro Exam: Alert, Awake, Oriented, Speech Clear, Moving All Extremities, No Focal Deficits VTE Prophylaxis VTE Prophylaxis Meds: Heparin PUD Prophylasis PUD Prophylaxis: Protonix Assessment/Plan Assessment/Plan ASSESSMENT AND PLAN 1. This is a 51-year male who came to the ER diagnosed with altered mental status most likely secondary to hyperglycemia and dehydration. The patient's altered mental status is totally resolved. The patient is awake and oriented x4. 2. DKA. The patient had a blood sugar of 890, better now . The patient is on insulin sliding scale. on metformin 500 mg PO BID. Will monitor blood sugar closely. 3. History of COPD. Continue home medication. 4. History of anxiety. Continue with Ativan 0.5 mg p.o. q.8h. 5. History of hypertension. Continue with diltiazem. 6. History of tachycardia. Continue with diltiazem. 7. Leg edema. Continue furosemide 40 mg p.o. daily. 8. History of GERD. Continue with Carafate and Protonix 40 mg p.o. daily. 9. History of DVT and pulmonary embolism. Continue with Eliquis 5 mg twice a day. 10. History of hyperlipidemia. Continue with Lipitor 20 mg p.o. daily. 11. History of fungal infection of the right hip. Continue with Diflucan 100 mg twice a day. 12. DVT prophylaxis. The patient is on Eliquis. 13. GI prophylaxis with Protonix and Carafate. 14. High LFTs. Will monitor. 15. Pseudohyponatremia, resolved. 16. Leukocytosis. resolved. 17. Anemia. The patient has iron deficiency. The patient on ferrous sulfate 325 mg p.o. BID. 18. Hypokalemia will replace and monitor. 19. Burning / painful urination checked urine and s/p pyridium for 2 days and continue with rocephin 1 gm IV Daily. 20. Urinary retention s/p foleys catheter in urology input nolted Check CBC and CMP in the morning. We are going to manage the patient on a daily basis and make recommendations on a daily basis. DC Plan when ok with urology. Discussed Condition with: Patient Myron Woodward MD Feb 11, 2017 07:47
[2017-02-11 08:10] LABS: AUTOMATED NEUTROPHIL # 3.4 TH/MM3 (1.8-7.7); BASOPHIL # 0.1 TH/MM3 (0-0.2); BASOPHIL % 1.2 % (0.0-2.0); EOSINOPHIL # 0.1 TH/MM3 (0-0.4); EOSINOPHIL % 1.1 % (0.0-4.0); HEMATOCRIT 33.5 % (39.0-51.0); LYMPH % 21.8 % (9.0-44.0); LYMPHOCYTE # 1.1 TH/MM3 (1.0-4.8); MEAN CELL VOLUME 80.6 FL (80.0-100.0); MEAN CORPUSCULAR HEMOGLOBIN 26.5 PG (27.0-34.0); MEAN CORPUSCULAR HGB CONC 32.8 % (32.0-36.0); MONO % 10.5 % (0.0-8.0); NEUT % 65.4 % (16.0-70.0); PLATELET COUNT 334 TH/MM3 (150-450); RED BLOOD COUNT 4.16 MIL/MM3 (4.50-5.90); RED CELL DISTRIBUTION WIDTH 28.1 % (11.6-17.2); WHITE BLOOD COUNT 5.2 TH/MM3 (4.0-11.0)
[2017-02-11 08:19] LABS: HEMO FLAGS AUTO DIFF
[2017-02-11 08:29] LABS: ANION GAP 10 MEQ/L (5-15); AST (GOT) 38 U/L (15-37); BICARBONATE 26.1 MEQ/L (21.0-32.0); BLOOD UREA NITROGEN 3 MG/DL (7-18); CHLORIDE 105 MEQ/L (98-107); GLOMERULAR FILTRATION RATE 111 ML/MIN (>89); POTASSIUM 3.4 MEQ/L (3.5-5.1); SODIUM (NA) 141 MEQ/L (136-145)
[2017-02-11 08:31] LABS: ALT (GPT) 85 U/L (12-78)
[2017-02-11 08:33] LABS: ALKALINE PHOSPHATASE 177 U/L (45-117); TOTAL BILIRUBIN ADULT 0.3 MG/DL (0.2-1.0)
[2017-02-11] MEDS: DOCUSATE SODIUM 50 MG/SENNA 8.6 MG TAB PO SCH ×2 (09:00→20:24)
[2017-02-11] MEDS: POTASSIUM CHLORIDE 20 MEQ CONTROLLED RELEASE TAB PO SCH ×2 (09:25→20:22)
[2017-02-11] MEDS: APIXABAN 5 MG TABLET PO SCH ×2 (09:25→20:22)
[2017-02-11] MEDS: DILTIAZEM-CD 180 MG CAP ER PO SCH (09:25)
[2017-02-11] MEDS: metFORMIN HCL 500 MG TAB PO SCH ×2 (09:25→17:51)
[2017-02-11] MEDS: FERROUS SULFATE 325 MG (65 MG ELEMENTAL IRON) TAB PO SCH ×2 (09:26→20:22)
[2017-02-11] MEDS: TAMSULOSIN HCL 0.4 MG CAP PO SCH (09:26)
[2017-02-11] MEDS: FLUCONAZOLE 100 MG TAB PO SCH ×2 (09:26→20:21)
[2017-02-11] MEDS: FUROSEMIDE 40 MG TAB PO SCH (09:27)
[2017-02-11] MEDS: BUDESONIDE-FORMOTEROL 160/4.5 MCG INHALER INH SCH ×2 (09:28→20:24)
[2017-02-11] MEDS: SODIUM CHLORIDE 0.9% FLUSH 10 ML FLUSH IV FLUSH SCH ×2 (09:28→20:24)
[2017-02-11 09:30] LABS: BANDS 4 % (0-6); BASOPHILS 2 % (0-2); EOSINOPHILS 2 % (0-4); METAMYELOCYTES 2 % (0-1); POLYS (SEG NEUTROPHILS) 51 % (16-70); WBC DIFF SAMPLE 100
[2017-02-11 09:31] LABS: OVALOCYTES 1+ (NORMAL); PLATELET ESTIMATE SMEAR NORMAL (NORMAL); PLATELET MORPHOLOGY NORMAL (NORMAL); SCAN/DIFF FINAL DIFF MANUAL
[2017-02-11] MEDS: LOPERAMIDE HCL 2 MG CAP PO PRN ×2 (11:29→20:23)
[2017-02-11] MEDS ORDERED: POTASSIUM CHLORIDE 20 MEQ CONTROLLED RELEASE TAB PO ONE (16:00)
[2017-02-11] MEDS: PANTOPRAZOLE SOD 40 MG DELAYED RELEASE TAB PO SCH (20:21)
[2017-02-11] MEDS: ATORVASTATIN 20 MG TAB PO SCH (20:21)
[2017-02-11] MEDS: MONTELUKAST SODIUM 10 MG TAB PO SCH (20:22)
[2017-02-12] VITALS (11 sets, daily range): BP systolic 106–147; BP diastolic 74–87; PULSE 96–122; RESP 16–19; TEMP 97.3–98.1; O2SAT 94–98
[2017-02-12] MEDS: metroNIDAZOLE 500 MG INJ 100 ML IV SCH ×3 (02:59→21:49)
[2017-02-12] MEDS: LORazepam 0.5 MG TAB PO SCH ×3 (02:59→17:04)
[2017-02-12] MEDS: RESP: LEVALBUTEROL HYDROCHLORIDE 1.25 MG/3 ML NEB (SCH) NEB ×4 (03:33→21:02)
[2017-02-12] MEDS: SUCRALFATE 1 GM TAB PO SCH ×2 (06:28→16:07)
[2017-02-12] MEDS: MEDIUM DOSE INSULIN NOVOLOG SUPPLEMENTAL SCALE SQ SCH ×4 (06:33→21:00)
[2017-02-12 07:35] LABS: AUTOMATED NEUTROPHIL # 2.8 TH/MM3 (1.8-7.7); BASOPHIL # 0.1 TH/MM3 (0-0.2); BASOPHIL % 2.2 % (0.0-2.0); EOSINOPHIL # 0.1 TH/MM3 (0-0.4); EOSINOPHIL % 1.2 % (0.0-4.0); HEMATOCRIT 33.9 % (39.0-51.0); LYMPH % 25.5 % (9.0-44.0); LYMPHOCYTE # 1.2 TH/MM3 (1.0-4.8); MEAN CELL VOLUME 80.8 FL (80.0-100.0); MEAN CORPUSCULAR HEMOGLOBIN 26.3 PG (27.0-34.0); MEAN CORPUSCULAR HGB CONC 32.5 % (32.0-36.0); MONO % 11.1 % (0.0-8.0); PLATELET COUNT 322 TH/MM3 (150-450); RED BLOOD COUNT 4.19 MIL/MM3 (4.50-5.90); RED CELL DISTRIBUTION WIDTH 27.3 % (11.6-17.2); WHITE BLOOD COUNT 4.7 TH/MM3 (4.0-11.0)
[2017-02-12 07:43] LABS: HEMO FLAGS AUTO DIFF
[2017-02-12 07:55] LABS: ALT (GPT) 80 U/L (12-78); ANION GAP 9 MEQ/L (5-15); AST (GOT) 40 U/L (15-37); BICARBONATE 27.4 MEQ/L (21.0-32.0); BLOOD UREA NITROGEN 2 MG/DL (7-18); CHLORIDE 106 MEQ/L (98-107); GLOMERULAR FILTRATION RATE 113 ML/MIN (>89); POTASSIUM 3.6 MEQ/L (3.5-5.1); SODIUM (NA) 142 MEQ/L (136-145)
[2017-02-12 07:57] LABS: ALKALINE PHOSPHATASE 170 U/L (45-117); TOTAL BILIRUBIN ADULT 0.3 MG/DL (0.2-1.0)
[2017-02-12] MEDS: DILTIAZEM-CD 180 MG CAP ER PO SCH (08:26)
[2017-02-12] MEDS: FUROSEMIDE 40 MG TAB PO SCH (08:27)
[2017-02-12] MEDS: APIXABAN 5 MG TABLET PO SCH ×2 (08:27→21:50)
[2017-02-12] MEDS: metFORMIN HCL 500 MG TAB PO SCH ×2 (08:27→17:04)
[2017-02-12] MEDS: FERROUS SULFATE 325 MG (65 MG ELEMENTAL IRON) TAB PO SCH ×2 (08:27→21:50)
[2017-02-12] MEDS: POTASSIUM CHLORIDE 20 MEQ CONTROLLED RELEASE TAB PO SCH ×2 (08:27→21:50)
[2017-02-12] MEDS: TAMSULOSIN HCL 0.4 MG CAP PO SCH (08:27)
[2017-02-12] MEDS: FLUCONAZOLE 100 MG TAB PO SCH ×2 (08:27→21:50)
[2017-02-12] MEDS: BUDESONIDE-FORMOTEROL 160/4.5 MCG INHALER INH SCH ×2 (08:28→21:51)
[2017-02-12] MEDS: SODIUM CHLORIDE 0.9% FLUSH 10 ML FLUSH IV FLUSH SCH ×2 (08:28→21:49)
[2017-02-12] MEDS: ONDANSETRON HCL 4 MG/2 ML VIAL IVP PRN ×2 (08:28→14:07)
[2017-02-12 08:29] LABS: POLYCHROMASIA 2.4 % (0.0-1.9); SCAN/DIFF AUTO DIFF CONFIRMED
[2017-02-12] MEDS: DOCUSATE SODIUM 50 MG/SENNA 8.6 MG TAB PO SCH ×2 (08:30→21:50)
--- NOTE | 2017-02-12 08:46 | HHI.PR ---
Subjective History of Present Illness Patient feel better Hypokalemia resolved ..diarrhea better... patient have urinary retention s/p foleys catheter in need foleys catheter out today. urology input noted DC Plan when ok with urology. Review of Systems Constitutional Constitutional: Fatigue, Weakness Pulmonary Respiratory: Shortness of Breath, Wheezing Vitals/Results Intake & Output 02/11/17 02/11/17 02/12/17 15:00 23:00 07:00 Intake Total 600 ml 584 ml 226 ml Output Total 600 ml 1550 ml 650 ml Balance 0 ml -966 ml -424 ml Intake Oral 600 ml 480 ml 120 ml IV Total 104 ml 106 ml Output Urine Total 600 ml 1550 ml 650 ml # Bowel Movements 3 2 0 Vital Signs Vital Signs Date Time Temp Pulse Resp B/P Pulse Ox O2 Delivery O2 Flow Rate FiO2 02/12/17 04:00 97.7 107 18 127/82 94 02/12/17 02:23 96 02/12/17 00:00 97.8 115 18 129/74 94 02/11/17 20:25 Room Air 02/11/17 20:00 97.7 100 16 130/80 98 02/11/17 16:09 97.5 100 18 123/88 98 02/11/17 15:41 99 21 02/11/17 12:03 97.8 102 18 132/84 100 02/11/17 09:25 Room Air CBC/BMP: 02/12/17 0613 02/12/17 0613 Lab Results Laboratory Tests Test 02/12/17 06:13 White Blood Count 4.7 TH/MM3 Red Blood Count 4.19 MIL/MM3 Hemoglobin 11.0 GM/DL Hematocrit 33.9 % Mean Corpuscular Volume 80.8 FL Mean Corpuscular Hemoglobin 26.3 PG Mean Corpuscular Hemoglobin 32.5 % Concent Red Cell Distribution Width 27.3 % Platelet Count 322 TH/MM3 Mean Platelet Volume 7.3 FL Neutrophils (%) (Auto) 60.0 % Lymphocytes (%) (Auto) 25.5 % Monocytes (%) (Auto) 11.1 % Eosinophils (%) (Auto) 1.2 % Basophils (%) (Auto) 2.2 % Neutrophils # (Auto) 2.8 TH/MM3 Lymphocytes # (Auto) 1.2 TH/MM3 Monocytes # (Auto) 0.5 TH/MM3 Eosinophils # (Auto) 0.1 TH/MM3 Basophils # (Auto) 0.1 TH/MM3 CBC Comment AUTO DIFF Differential Comment AUTO DIFF CONFIRMED Polychromasia 2.4 % Sodium Level 142 MEQ/L Potassium Level 3.6 MEQ/L Chloride Level 106 MEQ/L Carbon Dioxide Level 27.4 MEQ/L Anion Gap 9 MEQ/L Blood Urea Nitrogen 2 MG/DL Creatinine 0.73 MG/DL Estimat Glomerular Filtration 113 ML/MIN Rate Random Glucose 96 MG/DL Calcium Level 9.3 MG/DL Total Bilirubin 0.3 MG/DL Aspartate Amino Transf 40 U/L (AST/SGOT) Alanine Aminotransferase 80 U/L (ALT/SGPT) Alkaline Phosphatase 170 U/L Total Protein 5.7 GM/DL Albumin 3.0 GM/DL Physical Exam General General Appearance: Well Developed, Well Nourished, No Acute Distress, Comfortable Eyes Eye Exam: Pupils Equal, Pupils Reactive, Sclera White, Extraocular Movement Intact Throat Throat Exam: Oral Mucosa [place] & Moist, Oral Pharynx Normal Neck Neck Exam: Neck Supple, Trachea Midline Pulmonary Resp Remarks Bilateral wheezing. Cardiology CV Exam: Regular, Normal Sinus Rhythm Gastrointestinal/Abdomen GI Exam: Soft, Non-Tender, Bowel Sounds Present Musculoskeletal MS Exam: Normal Gait, Normal Tone, Good Strength Integumentary Skin Exam: Clear, Warm, Dry, Intact Extremeties Extremities Exam: Pitting Edema Neurologic Neuro Exam: Alert, Awake, Oriented, Speech Clear, Moving All Extremities, No Focal Deficits VTE Prophylaxis VTE Prophylaxis Meds: Heparin PUD Prophylasis PUD Prophylaxis: Protonix Assessment/Plan Assessment/Plan ASSESSMENT AND PLAN 1. This is a 51-year male who came to the ER diagnosed with altered mental status most likely secondary to hyperglycemia and dehydration. The patient's altered mental status is totally resolved. The patient is awake and oriented x4. 2. DKA. The patient had a blood sugar of 890, better now . The patient is on insulin sliding scale. on metformin 500 mg PO BID. Will monitor blood sugar closely. 3. History of COPD. Continue home medication. 4. History of anxiety. Continue with Ativan 0.5 mg p.o. q.8h. 5. History of hypertension. Continue with diltiazem. 6. History of tachycardia. Continue with diltiazem. 7. Leg edema. Continue furosemide 40 mg p.o. daily. 8. History of GERD. Continue with Carafate and Protonix 40 mg p.o. daily. 9. History of DVT and pulmonary embolism. Continue with Eliquis 5 mg twice a day. 10. History of hyperlipidemia. Continue with Lipitor 20 mg p.o. daily. 11. History of fungal infection of the right hip. Continue with Diflucan 100 mg twice a day. 12. DVT prophylaxis. The patient is on Eliquis. 13. GI prophylaxis with Protonix and Carafate. 14. High LFTs. Will monitor. 15. Pseudohyponatremia, resolved. 16. Leukocytosis. resolved. 17. Anemia. The patient has iron deficiency. The patient on ferrous sulfate 325 mg p.o. BID. 18. Hypokalemia will replace and monitor. 19. Burning / painful urination checked urine and s/p pyridium for 2 days 20. Urinary retention s/p foleys catheter in urology input nolted need foleys catheter out today. Check CBC and CMP in the morning. We are going to manage the patient on a daily basis and make recommendations on a daily basis. DC Plan when ok with urology. Discussed Condition with: Patient Myron Woodward MD Feb 12, 2017 08:45
[2017-02-12] MEDS: guaiFENesin/DEXTROMETHORPHAN 200 MG/20 MG/10 ML CUP PO PRN (16:07)
[2017-02-12] MEDS: ATORVASTATIN 20 MG TAB PO SCH (21:50)
[2017-02-12] MEDS: MONTELUKAST SODIUM 10 MG TAB PO SCH (21:50)
[2017-02-12] MEDS: PANTOPRAZOLE SOD 40 MG DELAYED RELEASE TAB PO SCH (21:50)
[2017-02-12] MEDS: ACETAMINOPHEN/HYDROcodone 325 MG/5 MG TAB PO PRN (21:51)
[2017-02-13] VITALS (7 sets, daily range): BP systolic 119–131; BP diastolic 72–88; PULSE 97–109; RESP 16–18; TEMP 97.5–98.1; O2SAT 96–98
[2017-02-13] MEDS: RESP: LEVALBUTEROL HYDROCHLORIDE 1.25 MG/3 ML NEB (SCH) NEB ×3 (03:10→16:04)
[2017-02-13] MEDS: metroNIDAZOLE 500 MG INJ 100 ML IV SCH ×3 (03:45→21:13)
[2017-02-13] MEDS: LORazepam 0.5 MG TAB PO SCH ×3 (03:45→16:42)
[2017-02-13] MEDS: SUCRALFATE 1 GM TAB PO SCH ×2 (06:47→16:42)
[2017-02-13] MEDS: MEDIUM DOSE INSULIN NOVOLOG SUPPLEMENTAL SCALE SQ SCH ×4 (06:48→21:00)
--- NOTE | 2017-02-13 07:45 | HHI.PR ---
Subjective History of Present Illness Patient feel better Hypokalemia resolved ..diarrhea better... patient have urinary retention s/p foleys catheter in need foleys catheter out today. urology input noted DC Plan when ok with urology. Review of Systems Constitutional Constitutional: Fatigue, Weakness Pulmonary Respiratory: Shortness of Breath, Wheezing Vitals/Results Intake & Output 02/12/17 02/12/17 02/13/17 15:00 23:00 07:00 Intake Total 480 ml 340 ml 820 ml Output Total 3300 ml 300 ml 200 ml Balance -2820 ml 40 ml 620 ml Intake Oral 480 ml 240 ml 720 ml IV Total 100 ml 100 ml Output Urine Total 3300 ml 300 ml 200 ml # Bowel Movements 2 0 0 Vital Signs Vital Signs Date Time Temp Pulse Resp B/P Pulse Ox O2 Delivery O2 Flow Rate FiO2 02/13/17 04:00 Room Air 02/13/17 04:00 97.5 101 18 119/79 98 02/12/17 22:00 98.0 107 16 127/78 95 02/12/17 22:00 Room Air 02/12/17 21:04 96 21 02/12/17 20:00 97.7 122 18 147/77 97 02/12/17 20:00 Room Air 02/12/17 20:00 116 02/12/17 16:03 97.3 119 18 106/81 96 02/12/17 12:03 98.1 117 19 133/81 96 02/12/17 09:55 98 21 02/12/17 08:34 97 02/12/17 08:34 Room Air 02/12/17 08:02 98.0 107 19 134/87 96 CBC/BMP: 02/12/17 0613 02/12/17 0613 Physical Exam General General Appearance: Well Developed, Well Nourished, No Acute Distress, Comfortable Eyes Eye Exam: Pupils Equal, Pupils Reactive, Sclera White, Extraocular Movement Intact Throat Throat Exam: Oral Mucosa [place] & Moist, Oral Pharynx Normal Neck Neck Exam: Neck Supple, Trachea Midline Pulmonary Resp Remarks Bilateral wheezing. Cardiology CV Exam: Regular, Normal Sinus Rhythm Gastrointestinal/Abdomen GI Exam: Soft, Non-Tender, Bowel Sounds Present Musculoskeletal MS Exam: Normal Gait, Normal Tone, Good Strength Integumentary Skin Exam: Clear, Warm, Dry, Intact Extremeties Extremities Exam: Pitting Edema Neurologic Neuro Exam: Alert, Awake, Oriented, Speech Clear, Moving All Extremities, No Focal Deficits VTE Prophylaxis VTE Prophylaxis Meds: Heparin PUD Prophylasis PUD Prophylaxis: Protonix Assessment/Plan Assessment/Plan ASSESSMENT AND PLAN 1. This is a 51-year male who came to the ER diagnosed with altered mental status most likely secondary to hyperglycemia and dehydration. The patient's altered mental status is totally resolved. The patient is awake and oriented x4. 2. DKA. The patient had a blood sugar of 890, better now . The patient is on insulin sliding scale. on metformin 500 mg PO BID. Will monitor blood sugar closely. 3. History of COPD. Continue home medication. 4. History of anxiety. Continue with Ativan 0.5 mg p.o. q.8h. 5. History of hypertension. Continue with diltiazem. 6. History of tachycardia. Continue with diltiazem. 7. Leg edema. Continue furosemide 40 mg p.o. daily. 8. History of GERD. Continue with Carafate and Protonix 40 mg p.o. daily. 9. History of DVT and pulmonary embolism. Continue with Eliquis 5 mg twice a day. 10. History of hyperlipidemia. Continue with Lipitor 20 mg p.o. daily. 11. History of fungal infection of the right hip. Continue with Diflucan 100 mg twice a day. 12. DVT prophylaxis. The patient is on Eliquis. 13. GI prophylaxis with Protonix and Carafate. 14. High LFTs. Will monitor. 15. Pseudohyponatremia, resolved. 16. Leukocytosis. resolved. 17. Anemia. The patient has iron deficiency. The patient on ferrous sulfate 325 mg p.o. BID. 18. Hypokalemia resolved. 19. Burning / painful urination checked urine and s/p pyridium for 2 days 20. Urinary retention s/p foleys catheter in urology input nolted need foleys catheter out today. Check CBC and CMP in the morning. We are going to manage the patient on a daily basis and make recommendations on a daily basis. DC Plan when ok with urology. Discussed Condition with: Patient Myron Woodward MD Feb 13, 2017 07:45
[2017-02-13 08:00] LABS: AUTOMATED NEUTROPHIL # 3.2 TH/MM3 (1.8-7.7); BASOPHIL # 0.1 TH/MM3 (0-0.2); BASOPHIL % 1.3 % (0.0-2.0); EOSINOPHIL # 0.1 TH/MM3 (0-0.4); EOSINOPHIL % 1.5 % (0.0-4.0); HEMATOCRIT 34.1 % (39.0-51.0); LYMPH % 25.3 % (9.0-44.0); LYMPHOCYTE # 1.3 TH/MM3 (1.0-4.8); MEAN CELL VOLUME 81.6 FL (80.0-100.0); MEAN CORPUSCULAR HEMOGLOBIN 26.1 PG (27.0-34.0); MONO % 11.1 % (0.0-8.0); NEUT % 60.8 % (16.0-70.0); PLATELET COUNT 333 TH/MM3 (150-450); RED BLOOD COUNT 4.18 MIL/MM3 (4.50-5.90); RED CELL DISTRIBUTION WIDTH 26.7 % (11.6-17.2); WHITE BLOOD COUNT 5.3 TH/MM3 (4.0-11.0)
[2017-02-13 08:08] LABS: HEMO FLAGS AUTO DIFF
[2017-02-13 08:21] LABS: ANION GAP 9 MEQ/L (5-15); AST (GOT) 42 U/L (15-37); BICARBONATE 28.7 MEQ/L (21.0-32.0); BLOOD UREA NITROGEN 5 MG/DL (7-18); CHLORIDE 105 MEQ/L (98-107); GLOMERULAR FILTRATION RATE 113 ML/MIN (>89); POTASSIUM 3.4 MEQ/L (3.5-5.1); SODIUM (NA) 143 MEQ/L (136-145)
[2017-02-13 08:24] LABS: ALKALINE PHOSPHATASE 169 U/L (45-117); ALT (GPT) 79 U/L (12-78); TOTAL BILIRUBIN ADULT 0.2 MG/DL (0.2-1.0)
[2017-02-13] MEDS: FERROUS SULFATE 325 MG (65 MG ELEMENTAL IRON) TAB PO SCH ×2 (08:51→21:10)
[2017-02-13] MEDS: BUDESONIDE-FORMOTEROL 160/4.5 MCG INHALER INH SCH ×2 (08:51→21:11)
[2017-02-13] MEDS: POTASSIUM CHLORIDE 20 MEQ CONTROLLED RELEASE TAB PO SCH ×2 (08:51→21:18)
[2017-02-13] MEDS: metFORMIN HCL 500 MG TAB PO SCH ×2 (08:51→16:42)
[2017-02-13] MEDS: APIXABAN 5 MG TABLET PO SCH ×2 (08:51→21:10)
[2017-02-13] MEDS: SODIUM CHLORIDE 0.9% FLUSH 10 ML FLUSH IV FLUSH SCH ×2 (08:52→21:12)
[2017-02-13] MEDS: DOCUSATE SODIUM 50 MG/SENNA 8.6 MG TAB PO SCH ×2 (08:52→21:00)
[2017-02-13] MEDS: FUROSEMIDE 40 MG TAB PO SCH (08:52)
[2017-02-13] MEDS: DILTIAZEM-CD 180 MG CAP ER PO SCH (08:52)
[2017-02-13] MEDS: FLUCONAZOLE 100 MG TAB PO SCH ×2 (08:52→21:10)
[2017-02-13] MEDS: TAMSULOSIN HCL 0.4 MG CAP PO SCH (08:52)
[2017-02-13 09:13] LABS: OVALOCYTES 1+ (NORMAL)
[2017-02-13 09:14] LABS: SCAN/DIFF AUTO DIFF CONFIRMED
--- NOTE | 2017-02-13 10:47 | HHI.PR ---
Subjective Patient symptoms today Pt seen and examined. Feels well. Still in hospital. Torres still in place. On Flomax. Objective Vital Signs Vital Signs Date Time Temp Pulse Resp B/P Pulse Ox O2 Delivery O2 Flow Rate FiO2 02/13/17 08:58 Room Air 02/13/17 08:58 97 02/13/17 04:00 Room Air 02/13/17 04:00 97.5 101 18 119/79 98 02/12/17 22:00 98.0 107 16 127/78 95 02/12/17 22:00 Room Air 02/12/17 21:04 96 21 02/12/17 20:00 97.7 122 18 147/77 97 02/12/17 20:00 Room Air 02/12/17 20:00 116 02/12/17 16:03 97.3 119 18 106/81 96 02/12/17 12:03 98.1 117 19 133/81 96 Intake & Output 02/13/17 02/13/17 07:00 19:00 Intake Total 1160 ml Output Total 500 ml Balance 660 ml Intake Oral 960 ml IV Total 200 ml Output Urine Total 500 ml # Bowel Movements 0 Result Diagram: 02/13/1762002/13/17620 Objective Remarks Abd:soft,nt,nd Torres: urine clear 02/13/17 Abd:soft,nt,nd Torres: urine clear Medications and IVs Current Medications Medications (Trade) Dose Ordered Sig/Gabi Route Start Time Stop Time Status Last Admin (Eliquis) 5 mg BID PO 01/30/17 21:00 02/13/17 08:51 (Lipitor) 20 mg HS PO 01/30/17 21:00 02/12/17 21:50 (Flexeril) 10 mg Q8H PRN PO 01/30/17 17:15 (Cardizem Cd) 360 mg DAILY PO 01/31/17 09:00 02/13/17 08:52 (Diflucan) 100 mg BID PO 01/30/17 21:00 02/13/17 08:52 (Lasix) 40 mg DAILY PO 01/31/17 09:00 02/13/17 08:52 (Singulair) 10 mg HS PO 01/30/17 21:00 02/12/17 21:50 (Protonix) 40 mg HS PO 01/30/17 21:00 02/12/17 21:50 (NS Flush) 2 ml UNSCH PRN IV FLUSH 01/30/17 19:15 02/11/17 12:51 (NS Flush) 2 ml BID IV FLUSH 01/30/17 21:00 02/13/17 08:52 (Tylenol) 650 mg Q4H PRN PO 01/30/17 19:15 (Zofran Inj) 4 mg Q6H PRN IVP 01/30/17 19:15 02/12/17 14:07 (Narcan Inj) 0.4 mg UNSCH PRN IV 01/30/17 19:15 (Clare-Colace) 1 tab BID PO 01/30/17 21:00 02/12/17 21:50 (Milk Of Magnesia Liq) 30 ml Q12H PRN PO 01/30/17 19:15 (Senokot) 17.2 mg Q12H PRN PO 01/30/17 19:15 (Dulcolax Supp) 10 mg DAILY PRN RECTAL 01/30/17 19:15 (Lactulose Liq) 30 ml DAILY PRN PO 01/30/17 19:15 (D50w (Vial) Inj) 50 ml UNSCH PRN IV 01/31/17 00:45 (Glucagon Inj) 1 mg UNSCH PRN OTHER 01/31/17 00:45 (Symbicort 160-4.5 Inh) 2 puff Q12HR INH 01/31/17 11:00 02/13/17 08:51 (Carafate) 1 gm BIDAC PO 01/31/17 11:00 02/13/17 06:47 (Ativan) 0.5 mg Q8H PO 01/31/17 10:00 02/13/17 03:45 ([place] 5-325 Mg) 2 tab Q4H PRN PO 01/31/17 10:15 02/12/17 21:51 (Ferrous Sulfate) 325 mg BID PO 01/31/17 10:30 02/13/17 08:51 (Glucophage) 500 mg BIDPC PO 02/01/17 11:00 02/13/17 08:51 (Flomax) 0.4 mg DAILY PO 02/05/17 10:15 02/13/17 08:52 (Robitussin Dm 200-20 Mg/10 ml Liq) 10 ml Q8H PRN PO 02/05/17 20:00 02/12/17 16:07 (KCl) 20 meq Q12HR PO 02/07/17 09:00 02/13/17 08:51 Loperamide HCl 2 mg 2 mg Q6H PRN PO 02/09/17 01:00 02/11/17 20:23 (Flagyl 500 Mg Inj) 100 ml @ 100 mls/hr Q8H IV 02/09/17 12:00 02/13/17 03:45 Assessment and Plan Assessment and Plan 51-year-old male admitted with newly diagnosed diabetes and generalized weakness with episode of urinary retention. Torres catheter placed for 1 L of urine output. Maintain Torres catheter for now. Will start Flomax 0.4 mg by mouth daily at bedtime. We'll obtain a renal bladder ultrasound. Void trial in the future. Thank you for the consult and for allowing me to participate in the care of this patient. 02/07/17 51 y.o male with AUR Void trial can be given prior to discharge, if fails, can f/u in office next Friday for void trial. Continue Flomax.-Pscript on chart. R/B sono was unremarkable 02/13/17 51 y.o male with AUR Void trial in AM Continue Flomax. Manuel Morel DO Feb 13, 2017 10:47
[2017-02-13] MEDS: ONDANSETRON HCL 4 MG/2 ML VIAL IVP PRN (11:55)
[2017-02-13] MEDS: MONTELUKAST SODIUM 10 MG TAB PO SCH (21:10)
[2017-02-13] MEDS: PANTOPRAZOLE SOD 40 MG DELAYED RELEASE TAB PO SCH (21:10)
[2017-02-13] MEDS: LOPERAMIDE HCL 2 MG CAP PO PRN (21:10)
[2017-02-13] MEDS: ATORVASTATIN 20 MG TAB PO SCH (21:10)
[2017-02-14] VITALS: BP 121/71; PULSE 114; RESP 20; TEMP 98; O2SAT 95
[2017-02-14] MEDS: LORazepam 0.5 MG TAB PO SCH ×2 (02:07→09:00)
[2017-02-14] MEDS: metroNIDAZOLE 500 MG INJ 100 ML IV SCH ×2 (04:18→12:15)
[2017-02-14 05:00] VITALS: BP 124/73; PULSE 98; RESP 20; TEMP 97.4; O2SAT 93
[2017-02-14] MEDS: MEDIUM DOSE INSULIN NOVOLOG SUPPLEMENTAL SCALE SQ SCH ×2 (06:27→12:25)
[2017-02-14] MEDS: SUCRALFATE 1 GM TAB PO SCH (06:33)
[2017-02-14 07:36] VITALS: O2SAT 96
[2017-02-14 08:00] VITALS: BP 130/80; PULSE 100; RESP 18; TEMP 97.6; O2SAT 96
[2017-02-14 08:10] VITALS: PULSE 98
[2017-02-14] MEDS: TAMSULOSIN HCL 0.4 MG CAP PO SCH (08:59)
[2017-02-14] MEDS: DILTIAZEM-CD 180 MG CAP ER PO SCH (08:59)
[2017-02-14] MEDS: FUROSEMIDE 40 MG TAB PO SCH (08:59)
[2017-02-14] MEDS: APIXABAN 5 MG TABLET PO SCH (08:59)
[2017-02-14] MEDS: POTASSIUM CHLORIDE 20 MEQ CONTROLLED RELEASE TAB PO SCH (08:59)
[2017-02-14] MEDS: FLUCONAZOLE 100 MG TAB PO SCH (09:00)
[2017-02-14] MEDS: FERROUS SULFATE 325 MG (65 MG ELEMENTAL IRON) TAB PO SCH (09:00)
[2017-02-14] MEDS: metFORMIN HCL 500 MG TAB PO SCH (09:00)
[2017-02-14] MEDS: DOCUSATE SODIUM 50 MG/SENNA 8.6 MG TAB PO SCH (09:00)
[2017-02-14] MEDS: BUDESONIDE-FORMOTEROL 160/4.5 MCG INHALER INH SCH (09:01)
[2017-02-14] MEDS: ONDANSETRON HCL 4 MG/2 ML VIAL IVP PRN (09:01)
[2017-02-14] MEDS: SODIUM CHLORIDE 0.9% FLUSH 10 ML FLUSH IV FLUSH SCH (09:02)
[2017-02-14 09:25] LABS: AUTOMATED NEUTROPHIL # 3.4 TH/MM3 (1.8-7.7); BASOPHIL # 0.1 TH/MM3 (0-0.2); BASOPHIL % 1.4 % (0.0-2.0); EOSINOPHIL # 0.1 TH/MM3 (0-0.4); EOSINOPHIL % 1.3 % (0.0-4.0); HEMATOCRIT 36.1 % (39.0-51.0); LYMPH % 23.3 % (9.0-44.0); LYMPHOCYTE # 1.2 TH/MM3 (1.0-4.8); MEAN CELL VOLUME 81.8 FL (80.0-100.0); MEAN CORPUSCULAR HEMOGLOBIN 25.9 PG (27.0-34.0); MEAN CORPUSCULAR HGB CONC 31.7 % (32.0-36.0); MONO % 10.8 % (0.0-8.0); NEUT % 63.2 % (16.0-70.0); PLATELET COUNT 336 TH/MM3 (150-450); RED BLOOD COUNT 4.41 MIL/MM3 (4.50-5.90); RED CELL DISTRIBUTION WIDTH 27.4 % (11.6-17.2); WHITE BLOOD COUNT 5.3 TH/MM3 (4.0-11.0)
[2017-02-14 09:27] LABS: HEMO FLAGS AUTO DIFF
[2017-02-14 09:57] LABS: ANION GAP 11 MEQ/L (5-15); AST (GOT) 39 U/L (15-37); BICARBONATE 25.3 MEQ/L (21.0-32.0); BLOOD UREA NITROGEN 3 MG/DL (7-18); CHLORIDE 105 MEQ/L (98-107); GLOMERULAR FILTRATION RATE 113 ML/MIN (>89); POTASSIUM 3.2 MEQ/L (3.5-5.1); SODIUM (NA) 141 MEQ/L (136-145)
[2017-02-14 10:05] LABS: ALKALINE PHOSPHATASE 167 U/L (45-117); ALT (GPT) 78 U/L (12-78); TOTAL BILIRUBIN ADULT 0.3 MG/DL (0.2-1.0)
[2017-02-14 10:23] LABS: KERATOCYTES OCC (NORMAL); OVALOCYTES 1+ (NORMAL); SCAN/DIFF AUTO DIFF CONFIRMED
[2017-02-14 12:00] VITALS: BP 118/72; PULSE 98; RESP 18; TEMP 97.8; O2SAT 97
--- NOTE | 2017-02-14 12:24 | HHI.PR ---
Subjective History of Present Illness Patient feel better Hypokalemia resolved ..diarrhea better... patient have urinary retention s/p foleys catheter out today. urology input noted OK to DC home if ok with Urology. Review of Systems Constitutional Constitutional: Fatigue, Weakness Pulmonary Respiratory: Shortness of Breath, Wheezing Vitals/Results Intake & Output 02/13/17 02/13/17 02/14/17 15:00 23:00 07:00 Intake Total 540 ml Output Total 800 ml 750 ml 1025 ml Balance -260 ml -750 ml -1025 ml Intake Oral 540 ml Output Urine Total 800 ml 750 ml 1025 ml # Bowel Movements 1 0 0 Vital Signs Vital Signs Date Time Temp Pulse Resp B/P Pulse Ox O2 Delivery O2 Flow Rate FiO2 02/14/17 08:10 98 02/14/17 08:10 Room Air 02/14/17 08:00 97.6 100 18 130/80 96 02/14/17 08:00 97.6 100 18 130/80 96 02/14/17 07:36 96 21 02/14/17 05:00 97.4 98 20 124/73 93 02/14/17 00:00 98.0 114 20 121/71 95 02/14/17 00:00 Room Air 02/13/17 21:15 Room Air 02/13/17 20:01 109 02/13/17 20:00 97.7 106 18 125/87 97 02/13/17 20:00 Room Air 02/13/17 16:00 98.1 101 16 123/83 97 CBC/BMP: 02/14/17 0629 02/14/17 0629 Lab Results Laboratory Tests Test 02/14/17 06:29 White Blood Count 5.3 TH/MM3 Red Blood Count 4.41 MIL/MM3 Hemoglobin 11.5 GM/DL Hematocrit 36.1 % Mean Corpuscular Volume 81.8 FL Mean Corpuscular Hemoglobin 25.9 PG Mean Corpuscular Hemoglobin 31.7 % Concent Red Cell Distribution Width 27.4 % Platelet Count 336 TH/MM3 Mean Platelet Volume 7.2 FL Neutrophils (%) (Auto) 63.2 % Lymphocytes (%) (Auto) 23.3 % Monocytes (%) (Auto) 10.8 % Eosinophils (%) (Auto) 1.3 % Basophils (%) (Auto) 1.4 % Neutrophils # (Auto) 3.4 TH/MM3 Lymphocytes # (Auto) 1.2 TH/MM3 Monocytes # (Auto) 0.6 TH/MM3 Eosinophils # (Auto) 0.1 TH/MM3 Basophils # (Auto) 0.1 TH/MM3 CBC Comment AUTO DIFF Differential Comment AUTO DIFF CONFIRMED Ovalocytes 1+ Keratocytes OCC Sodium Level 141 MEQ/L Potassium Level 3.2 MEQ/L Chloride Level 105 MEQ/L Carbon Dioxide Level 25.3 MEQ/L Anion Gap 11 MEQ/L Blood Urea Nitrogen 3 MG/DL Creatinine 0.73 MG/DL Estimat Glomerular Filtration 113 ML/MIN Rate Random Glucose 76 MG/DL Calcium Level 8.8 MG/DL Total Bilirubin 0.3 MG/DL Aspartate Amino Transf 39 U/L (AST/SGOT) Alanine Aminotransferase 78 U/L (ALT/SGPT) Alkaline Phosphatase 167 U/L Total Protein 5.7 GM/DL Albumin 3.1 GM/DL Physical Exam General General Appearance: Well Developed, Well Nourished, No Acute Distress, Comfortable Eyes Eye Exam: Pupils Equal, Pupils Reactive, Sclera White, Extraocular Movement Intact Throat Throat Exam: Oral Mucosa [place] & Moist, Oral Pharynx Normal Neck Neck Exam: Neck Supple, Trachea Midline Pulmonary Resp Remarks Bilateral wheezing. Cardiology CV Exam: Regular, Normal Sinus Rhythm Gastrointestinal/Abdomen GI Exam: Soft, Non-Tender, Bowel Sounds Present Musculoskeletal MS Exam: Normal Gait, Normal Tone, Good Strength Integumentary Skin Exam: Clear, Warm, Dry, Intact Extremeties Extremities Exam: Pitting Edema Neurologic Neuro Exam: Alert, Awake, Oriented, Speech Clear, Moving All Extremities, No Focal Deficits VTE Prophylaxis VTE Prophylaxis Meds: Heparin PUD Prophylasis PUD Prophylaxis: Protonix Assessment/Plan Assessment/Plan ASSESSMENT AND PLAN 1. This is a 51-year male who came to the ER diagnosed with altered mental status most likely secondary to hyperglycemia and dehydration. The patient's altered mental status is totally resolved. The patient is awake and oriented x4. 2. DKA. The patient had a blood sugar of 890, better now . The patient is on insulin sliding scale. on metformin 500 mg PO BID. Will monitor blood sugar closely. 3. History of COPD. Continue home medication. 4. History of anxiety. Continue with Ativan 0.5 mg p.o. q.8h. 5. History of hypertension. Continue with diltiazem. 6. History of tachycardia. Continue with diltiazem. 7. Leg edema. Continue furosemide 40 mg p.o. daily. 8. History of GERD. Continue with Carafate and Protonix 40 mg p.o. daily. 9. History of DVT and pulmonary embolism. Continue with Eliquis 5 mg twice a day. 10. History of hyperlipidemia. Continue with Lipitor 20 mg p.o. daily. 11. History of fungal infection of the right hip. Continue with Diflucan 100 mg twice a day. 12. DVT prophylaxis. The patient is on Eliquis. 13. GI prophylaxis with Protonix and Carafate. 14. High LFTs. Will monitor. 15. Pseudohyponatremia, resolved. 16. Leukocytosis. resolved. 17. Anemia. The patient has iron deficiency. The patient on ferrous sulfate 325 mg p.o. BID. 18. Hypokalemia resolved. 19. Burning / painful urination checked urine and s/p pyridium for 2 days 20. Urinary retention s/p foleys catheter out today. OK to DC home if ok with Urology. f/u with PCP/ Urology /GI/ Pulmonary/ Cardiology /Hematology 1 week. Discussed Condition with: Patient Myron Woodward MD Feb 14, 2017 12:24
[2017-02-14] MEDS ORDERED: POTA-163 PO (12:39)
--- NOTE | 2017-02-14 12:42 | HHI.PR ---
Subjective Patient symptoms today Torres out and voiding. Feels well; ready for discharge. Objective Vital Signs Vital Signs Date Time Temp Pulse Resp B/P Pulse Ox O2 Delivery O2 Flow Rate FiO2 02/14/17 08:10 98 02/14/17 08:10 Room Air 02/14/17 08:00 97.6 100 18 130/80 96 02/14/17 08:00 97.6 100 18 130/80 96 02/14/17 07:36 96 21 02/14/17 05:00 97.4 98 20 124/73 93 02/14/17 00:00 98.0 114 20 121/71 95 02/14/17 00:00 Room Air 02/13/17 21:15 Room Air 02/13/17 20:01 109 02/13/17 20:00 97.7 106 18 125/87 97 02/13/17 20:00 Room Air 02/13/17 16:00 98.1 101 16 123/83 97 Intake & Output 02/14/17 02/14/17 07:00 19:00 Output Total 1775 ml Balance -1775 ml Output Urine Total 1775 ml # Bowel Movements 0 Result Diagram: 02/14/1762802/14/17628 Objective Remarks Abd:soft,nt,nd Torres: urine clear 02/13/17 Abd:soft,nt,nd Torres: urine clear 02/14 Abd:soft,nt,nd Medications and IVs Current Medications Medications (Trade) Dose Ordered Sig/Gabi Route Start Time Stop Time Status Last Admin (Eliquis) 5 mg BID PO 01/30/17 21:00 02/14/17 08:59 (Lipitor) 20 mg HS PO 01/30/17 21:00 02/13/17 21:10 (Flexeril) 10 mg Q8H PRN PO 01/30/17 17:15 (Cardizem Cd) 360 mg DAILY PO 01/31/17 09:00 02/14/17 08:59 (Diflucan) 100 mg BID PO 01/30/17 21:00 02/14/17 09:00 (Lasix) 40 mg DAILY PO 01/31/17 09:00 02/14/17 08:59 (Singulair) 10 mg HS PO 01/30/17 21:00 02/13/17 21:10 (Protonix) 40 mg HS PO 01/30/17 21:00 02/13/17 21:10 (NS Flush) 2 ml UNSCH PRN IV FLUSH 01/30/17 19:15 02/11/17 12:51 (NS Flush) 2 ml BID IV FLUSH 01/30/17 21:00 02/14/17 09:02 (Tylenol) 650 mg Q4H PRN PO 01/30/17 19:15 (Zofran Inj) 4 mg Q6H PRN IVP 01/30/17 19:15 02/14/17 09:01 (Narcan Inj) 0.4 mg UNSCH PRN IV 01/30/17 19:15 (Clare-Colace) 1 tab BID PO 01/30/17 21:00 02/12/17 21:50 (Milk Of Magnesia Liq) 30 ml Q12H PRN PO 01/30/17 19:15 (Senokot) 17.2 mg Q12H PRN PO 01/30/17 19:15 (Dulcolax Supp) 10 mg DAILY PRN RECTAL 01/30/17 19:15 (Lactulose Liq) 30 ml DAILY PRN PO 01/30/17 19:15 (D50w (Vial) Inj) 50 ml UNSCH PRN IV 01/31/17 00:45 (Glucagon Inj) 1 mg UNSCH PRN OTHER 01/31/17 00:45 (Symbicort 160-4.5 Inh) 2 puff Q12HR INH 01/31/17 11:00 02/14/17 09:01 (Carafate) 1 gm BIDAC PO 01/31/17 11:00 02/14/17 06:33 (Ativan) 0.5 mg Q8H PO 01/31/17 10:00 02/14/17 09:00 ([place] 5-325 Mg) 2 tab Q4H PRN PO 01/31/17 10:15 02/12/17 21:51 (Ferrous Sulfate) 325 mg BID PO 01/31/17 10:30 02/14/17 09:00 (Glucophage) 500 mg BIDPC PO 02/01/17 11:00 02/14/17 09:00 (Flomax) 0.4 mg DAILY PO 02/05/17 10:15 02/14/17 08:59 (Robitussin Dm 200-20 Mg/10 ml Liq) 10 ml Q8H PRN PO 02/05/17 20:00 02/12/17 16:07 (KCl) 20 meq Q12HR PO 02/07/17 09:00 02/14/17 08:59 Loperamide HCl 2 mg 2 mg Q6H PRN PO 02/09/17 01:00 02/13/17 21:10 (Flagyl 500 Mg Inj) 100 ml @ 100 mls/hr Q8H IV 02/09/17 12:00 02/14/17 12:15 (KCl) 60 meq ONCE ONCE PO 02/14/17 12:45 02/14/17 12:46 UNV Assessment and Plan Assessment and Plan 51-year-old male admitted with newly diagnosed diabetes and generalized weakness with episode of urinary retention. Torres catheter placed for 1 L of urine output. Maintain Torres catheter for now. Will start Flomax 0.4 mg by mouth daily at bedtime. We'll obtain a renal bladder ultrasound. Void trial in the future. Thank you for the consult and for allowing me to participate in the care of this patient. 02/07/17 51 y.o male with AUR Void trial can be given prior to discharge, if fails, can f/u in office next Friday for void trial. Continue Flomax.-Pscript on chart. R/B sono was unremarkable 02/13/17 51 y.o male with AUR Void trial in AM Continue Flomax. 02/14 51 y.o male with AUR Voiding well Continue Flomax 2 tabs QHS F/U in office in 6-8 weeks. Manuel Morel DO Feb 14, 2017 12:42
[2017-02-14] MEDS ORDERED: POTASSIUM CHLORIDE 10 MEQ CONTROLLED RELEASE TAB PO ONE (13:00)
--- NOTE | 2017-02-16 09:28 | PQ ---
Physician Query Response Document PATIENT: RAFAT TREADWELL : 1965 ADMIT DATE: 01/30/2017 5:00 PM DISCH DATE: 02/14/2017 2:55 PM RESPONDING PROVIDER #: EAhmed QUERY TEXT: Clarification of Clinical Diagnostic Findings Please clarify documentation or clinical relevance for the clinical / diagnostic findings or whether those are insignificant or unable to be further specified. IN YOUR CLINICAL OPINION, ARE YOU TREATING: chronic asthma Chronic COPD Acute exacerbation COPD Acute asthma exacerbation The patient's Clinical Indicators include: ON ADMISSION dyspnea isn't able to speak in complete sentences secondary to his shortness of breath TREATMENT: BiPAP DuoNeb therapy, Solu-Medrol CLINICAL INDICATORS: HX Asthma HX COPD: Yes HOME MEDS Symbicort Inh (Budesonide/Formoterol Fumarate) 160-4.5 Mcg/Act Aero 2 Puff INH Q12HR Singulair (Montelukast Sodium) 10 Mg Tab 10 Mg PO HS Levalbuterol Neb (Levalbuterol HCl) 1.25 Mg/3 Ml Neb 1.25 Mg NEB BID PRN Duoneb (Ipratropium-Albuterol Neb) 0.5-2.5 Mg/3 Ml Neb 1 Nebule NEB QID PRN Query created by: Arline Meredith on 02/13/2017 9:32 AM RESPONSE TEXT: Acute asthma exacerbation Electronically signed by: Myron Woodward MD 02/16/2017 9:24 AM
--- NOTE | 2017-02-18 22:16 | MD ---
cc: MYRON BAGLEY MD ADMISSION DATE: 01/30/2017 DISCHARGE DATE: 02/14/2017 Okay to discharge the patient home with home health care. Condition at the time of discharge satisfactory. Activity as tolerated. Diet cardiac diet ADA 1800 calorie diet. ALLERGIES DEMEROL, TETRACYCLINE. DISCHARGE MEDICATIONS Include: 1. Flomax 0.4 mg p.o. daily. 2. Ferrous sulfate 325 mg twice a day. 3. Metformin 500 mg twice a day. 4. Eliquis 5 mg p.o. daily. 5. Lipitor 20 mg p.o. daily. 6. Symbicort 160 / 4.5 micrograms, two puff inhalation q. 12-hour. 7. Flexeril 10 milligrams p.o. t.i.d 8. Diltiazem ER 360 mg p.o. daily. 9. Fluconazole 100 mg twice a day. 10. Furosemide 40 mg daily. 11. Hydrocodone / acetaminophen two tablets p.o. q. 6-hour 5/325. 12. DuoNeb nebulization four times a day. 13. Lorazepam 0.5 mg twice a day. 14. Singulair 10 mg p.o. daily. 15. Omeprazole 40 mg p.o. daily. 16. Prednisone 10 mg p.o. daily. 17. Carafate one gram p.o. t.i.d. The patient advised to follow up PCP, cardiology, infectious disease, oncology, pulmonary and orthopedics. ADMISSION DIAGNOSIS Altered mental status secondary to hyperglycemia and new onset diabetes mellitus. DISCHARGE DIAGNOSIS 1. Mental status resolved. 2. Blood sugar better controlled. 3. Diabetic ketoacidosis. The patient's blood sugar was 890 at the time of admission. And it is improved. The patient started on metformin 500 milligrams p.o. twice a day. 4. History of chronic obstructive pulmonary disease. 5. Anxiety. 6. Hypertension. 7. Tachycardia. 8. Gastroesophageal reflux disease. 9. Severe asthma. 10. Hyperlipidemia. 11. Fungal infection of the right hip. 12. Anemia, iron deficiency. 13. Urinary retention. HOSPITAL COURSE This is a 51-year-old male admitted with above-mentioned complaints with a new onset diabetes mellitus, blood sugar was 890. The patient's altered mental status resolved. The patient was started on metformin. The patient was initially given insulin. The patient remained stable. The patient had a urinary retention during the hospital stay. The patient got a Torres catheter and urology consulted. The patient's Torres catheter was out. The patient had anemia with a hemoglobin of 11.5. The patient had hypokalemia. Potassium was replaced during hospital stay. The patient also had a beta hydroxy butyrate of 0.79. Urine examination is normal. C diff toxin negative. CT brain done shows no acute intracranial abnormality. Sebaceous cyst in the left occipital soft tissues. Chest x-ray done shows under inflated examination with mild atelectasis of the right lung base. No acute cardiopulmonary abnormality. Renal ultrasound was done and shows depressed bladder with Torres present, otherwise unremarkable. The patient remained stable. No acute event happened. Discharged in satisfactory condition. Further details in the medical record. Myron Bagley MD EA/DEREK /12:32 PM /10:00 PM
== END 2017-02-14 14:55 | disposition home health service (06) | DRG 638 ==
LOC: NEPC 14:20 → NEDA 17:00 → N04A 19:47
PROVIDERS: ADMIT Family Medicine; ATTEND Family Medicine
DX: E13.10 Other specified diabetes mellitus with ketoacidosis without coma (principal); B49 Unspecified mycosis; J45.901 Unspecified asthma with (acute) exacerbation; N39.0 Urinary tract infection, site not specified; E83.42 Hypomagnesemia; J44.9 Chronic obstructive pulmonary disease, unspecified; E87.6 Hypokalemia; E86.0 Dehydration; K21.9 Gastro-esophageal reflux disease without esophagitis; I10 Essential (primary) hypertension; F41.9 Anxiety disorder, unspecified; R00.0 Tachycardia, unspecified; R60.0 Localized edema; Z86.711 Personal history of pulmonary embolism; Z86.718 Personal history of other venous thrombosis and embolism; Z79.02 Long term (current) use of antithrombotics/antiplatelets; E78.5 Hyperlipidemia, unspecified; D72.829 Elevated white blood cell count, unspecified; D50.9 Iron deficiency anemia, unspecified; R33.9 Retention of urine, unspecified; R19.7 Diarrhea, unspecified; Z79.52 Long term (current) use of systemic steroids; Z87.01 Personal history of pneumonia (recurrent); Z96.643 Presence of artificial hip joint, bilateral
CPT/HCPCS: 36600; 70450; 71010; 76775; 80048; 80053; 80076; 81001; 82010; 82550; 82805; 82947; 82948; 83036; 83735; 84484; 85007; 85025; 85027; 87493; 93005; 94002; 94640; 94664; 96361; 96374; 96375; J0696; J1815; J2405; J2930; J3475; J7030; J7614

== ENCOUNTER 2017-02-15 22:12 | Emergency (ER) | payer BC ==
[~2017-02-15] VITALS: Ht 175.3 cm; Wt 97.0 kg
[~2017-02-15 22:12] MED LIST changes: -CEFT500T3 PO; -FERR325T PO; +FERR325T20 PO; +FLUC100T2 PO; +METF500 PO; -NYST1000 SWISH-SWAL; +OMEP40CA2 PO; +POTA-163 PO; -PRED10 PO; -PRED20 PO; -PRIL20CA9 PO; +TAMS5CAP PO
[2017-02-15 22:14] VITALS: BP 130/90; PULSE 121; RESP 16; TEMP 98.3; O2SAT 97
--- NOTE | 2017-02-15 22:49 | PD ---
HPI Chief Complaint: Complaint Time Seen by Provider: 22:37 Travel History International Travel<30 days: No Contact w/Intl Traveler<30days: No Traveled to known affect area: No History of Present Illness HPI Patient is a 51-year-old male presents to the emergency department for evaluation of abdominal distention. Patient states he has a history of enlarged prostate and recently did have a Torres catheter in place but was removed. He states after removal the patient was able to he urinate nearly a liter of fluid and has not done so since. He is concerned because he is distended and is been drinking a lot of fluids today and has not had any urine output. Denies any nausea or vomiting. The patient does endorse some chronic diarrhea secondary to metformin use. Denies any fevers denies any blood in the stool blood in the urine. PFSH Past Medical History Hx Anticoagulant Therapy: Yes (COUMADIN, LOVENOX) Arthritis: Yes Asthma: Yes Autoimmune Disease: No Blood Disorders: No Anxiety: Yes Depression: No Heart Rhythm Problems: Yes (sinus tachycardia) Cancer: No Cardiovascular Problems: Yes High Cholesterol: Yes Chemotherapy: No Chest Pain: No Congestive Heart Failure: No COPD: Yes Cerebrovascular Accident: No Diabetes: Yes (newly diagnosed) Patient Takes Glucophage: Yes Diminished Hearing: No Deep Vein Thrombosis: Yes (DECEMBER 2015: RIGHT LEG WITH PULMONARY EMBOLISM) Endocrine: Yes Gastrointestinal Disorders: No GERD: Yes Genitourinary: No Headaches: No Hiatal Hernia: No Heparin Induced Thrombocytopen: No Hypertension: Yes (New HTN since last admit per pt/not documented) Immune Disorder: No Implanted Vascular Access Dvce: Yes Kidney Stones: No Musculoskeletal: Yes (HIP SURGERIES, ARTHRITIS) Neurologic: No Psychiatric: Yes Reproductive: No Respiratory: Yes Migraines: No Pneumonia: Yes (NOVEMBER 2015) Radiation Therapy: No Renal Failure: No Seizures: No Sickle Cell Disease: No Sleep Apnea: No Thyroid Disease: No Ulcer: No Past Surgical History Abdominal Surgery: No AICD: No Appendectomy: Yes Arteriovenous Shunt: No Cardiac Surgery: No Endocrine Surgery: No Eye Surgery: No Genitourinary Surgery: Yes (apendectomy) Gynecologic Surgery: No Insulin Pump: No Joint Replacement: Yes (BILAT HIP REPLACEMENT) Neurologic Surgery: No Oral Surgery: Yes (TONSILLECTOMY) Pacemaker: No Thoracic Surgery: No Tonsillectomy: Yes Other Surgery: Yes (HIPS, APPENDIX, TONSILS) Social History Alcohol Use: No Tobacco Use: No Substance Use: No Allergies-Medications (Allergen,Severity, Reaction): Coded Allergies: Tetracycline (Verified Allergy, Severe, throat swells, 02/15/17) Demerol (Verified Allergy, Intermediate, hallucinations, 02/15/17) Reported Meds & Prescriptions Reported Meds & Active Scripts Active Potassium Chloride ER (Potassium Chloride) 20 Meq Tab 20 Meq PO BID Flomax (Tamsulosin HCl) 0.4 Mg Cap 0.4 Mg PO DAILY Glucophage (Metformin HCl) 500 Mg Tab 500 Mg PO BIDPC Ferosul (Ferrous Sulfate) 325 Mg Tablet 325 Mg PO BID Furosemide 40 Mg Tab 40 Mg PO DAILY Flexeril (Cyclobenzaprine HCl) 10 Mg Tab 10 Mg PO Q8H PRN Eliquis (Apixaban) 5 Mg Tab 5 Mg PO BID Hydrocodone-Acetaminophen 5-325 mg Tab 2 Tab PO Q4H PRN Ativan (Lorazepam) 0.5 Mg Tab 0.5 Mg PO BID Reported Fluconazole 100 Mg Tab 100 Mg PO BID Omeprazole 40 Mg Cap 40 Mg PO HS Matzim LA (Diltiazem ER 24 HR) 360 Mg Can 360 Mg PO DAILY Duoneb (Ipratropium-Albuterol Neb) 0.5-2.5 Mg/3 Ml Neb 1 Nebule NEB QID PRN Symbicort Inh (Budesonide/Formoterol Fumarate) 160-4.5 Mcg/Act Aero 2 Puff INH Q12HR Singulair (Montelukast Sodium) 10 Mg Tab 10 Mg PO HS Lipitor (Atorvastatin Calcium) 20 Mg Tab 20 Mg PO HS Carafate (Sucralfate) 1 Gm Tab 1 Gm PO TID On empty stomach Levalbuterol Neb (Levalbuterol HCl) 1.25 Mg/3 Ml Neb 1.25 Mg NEB BID PRN Review of Systems Except as stated in HPI: all other systems reviewed are Neg Physical Exam Narrative GENERAL: Well-developed well-nourished no apparent distress SKIN: Focused skin assessment warm/dry. HEAD: Atraumatic. Normocephalic. EYES: Pupils equal and round. No scleral icterus. No injection or drainage. ENT: No nasal bleeding or discharge. Mucous membranes pink and moist. NECK: Trachea midline. No JVD. CARDIOVASCULAR: Regular rate and rhythm. No murmur appreciated. RESPIRATORY: No accessory muscle use. Clear to auscultation. Breath sounds equal bilaterally. GASTROINTESTINAL: Abdomen soft, non-tender, minimally distended stomach. Hepatic and splenic margins not palpable. No percussive no rebound tenderness. MUSCULOSKELETAL: No obvious deformities. No clubbing. No cyanosis. 1+ pitting edema bilateral lower extremities from the knee down. NEUROLOGICAL: Awake and alert. No obvious cranial nerve deficits. Motor grossly within normal limits. Normal speech. PSYCHIATRIC: Appropriate mood and affect; insight and judgment normal. Data Data Last Documented VS Vital Signs Date Time Temp Pulse Resp B/P Pulse Ox O2 Delivery O2 Flow Rate FiO2 02/15/17 22:54 98 Nasal Cannula 2 02/15/17 22:14 98.3 121 16 130/90 Orders Ed Poc Ultrasound (02/15/17 22:37) Electrocardiogram (02/15/17 22:46) B-Type Natriuretic Peptide (02/15/17 22:46) Ckmb (Isoenzyme) Profile (02/15/17 22:46) Complete Blood Count With Diff (02/15/17 22:46) Comprehensive Metabolic Panel (02/15/17 22:46) Magnesium (Mg) (02/15/17 22:46) Prothrombin Time / Inr (Pt) (02/15/17 22:46) Act Partial Throm Time (Ptt) (02/15/17 22:46) Troponin I (02/15/17 22:46) Lipase (02/15/17 22:46) Ecg Monitoring (02/15/17 22:46) Iv Access Insert/Monitor (02/15/17 22:46) Oximetry (02/15/17 22:46) Oxygen Administration (02/15/17 22:46) Sodium Chloride 0.9% Flush (Ns Flush) (02/15/17 23:00) Chest, Pa & Lat (02/15/17 22:46) Urinalysis - C+S If Indicated (02/15/17 22:46) Ct Abd/Pel W Iv Contrast(Rout) (02/16/17 ) Iohexol 350 Inj (Omnipaque 350 Inj) (02/16/17 00:31) Labs Laboratory Tests Test 02/15/17 02/15/17 22:53 23:26 White Blood Count 6.2 TH/MM3 Red Blood Count 4.53 MIL/MM3 Hemoglobin 12.2 GM/DL Hematocrit 36.5 % Mean Corpuscular Volume 80.6 FL Mean Corpuscular Hemoglobin 26.9 PG Mean Corpuscular Hemoglobin 33.4 % Concent Red Cell Distribution Width 26.9 % Platelet Count 374 TH/MM3 Mean Platelet Volume 7.1 FL Neutrophils (%) (Auto) 58.2 % Lymphocytes (%) (Auto) 27.8 % Monocytes (%) (Auto) 10.8 % Eosinophils (%) (Auto) 1.9 % Basophils (%) (Auto) 1.3 % Neutrophils # (Auto) 3.6 TH/MM3 Lymphocytes # (Auto) 1.7 TH/MM3 Monocytes # (Auto) 0.7 TH/MM3 Eosinophils # (Auto) 0.1 TH/MM3 Basophils # (Auto) 0.1 TH/MM3 CBC Comment AUTO DIFF Differential Total Cells 100 Counted Neutrophils % (Manual) 61 % Band Neutrophils % 1 % Lymphocytes % 26 % Monocytes % 10 % Eosinophils % 1 % Neutrophils # (Manual) 3.9 TH/MM3 Myelocytes 1 % Nucleated Red Blood Cells 1 /100 WBC Differential Comment FINAL DIFF MANUAL Platelet Estimate NORMAL Platelet Morphology Comment NORMAL Ovalocytes 1+ Acanthocytes OCC Prothrombin Time 10.9 SEC Prothromb Time International 1.0 RATIO Ratio Activated Partial 26.1 SEC Thromboplast Time Sodium Level 137 MEQ/L Potassium Level 3.6 MEQ/L Chloride Level 102 MEQ/L Carbon Dioxide Level 22.7 MEQ/L Anion Gap 12 MEQ/L Blood Urea Nitrogen 7 MG/DL Creatinine 0.89 MG/DL Estimat Glomerular Filtration 90 ML/MIN Rate Random Glucose 119 MG/DL Calcium Level 8.8 MG/DL Magnesium Level 1.4 MG/DL Total Bilirubin 0.2 MG/DL Aspartate Amino Transf 35 U/L (AST/SGOT) Alanine Aminotransferase 73 U/L (ALT/SGPT) Alkaline Phosphatase 190 U/L Total Creatine Kinase 61 U/L Troponin I LESS THAN 0.02 NG/ML B-Type Natriuretic Peptide LESS THAN 2 PG/ML Total Protein 6.3 GM/DL Albumin 3.4 GM/DL Lipase 156 U/L Urine Color YELLOW Urine Turbidity CLEAR Urine pH 6.0 Urine Specific [place] 1.023 Urine Protein 30 mg/dL Urine Glucose (UA) NEG mg/dL Urine Ketones TRACE mg/dL Urine Occult Blood NEG Urine Nitrite NEG Urine Bilirubin NEG Urine Urobilinogen 2.0 MG/DL Urine Leukocyte Esterase SMALL Urine RBC 3 /hpf Urine WBC 6 /hpf Urine Squamous Epithelial 1 /hpf Cells Urine Bacteria RARE /hpf Urine Hyaline Casts 2 /lpf Urine Mucus MANY /lpf Microscopic Urinalysis Comment CULT NOT INDICATED MDM Medical Decision Making Medical Screen Exam Complete: Yes Emergency Medical Condition: Yes Differential Diagnosis Urinary retention, acute kidney injury, CHF, kidney failure, Narrative Course Patient was roomed in the emergency department, bedside ultrasound showed no urinary retention. Basic labs are reassuring. Patient states he drank nearly a 2 gallons of fluid today and is concerned about no output. Given his abdominal distention the CAT scan is warranted to exclude ascites. Last 24 hours Impressions Chest X-Ray 02/15/17 2246 Signed Impressions: Service Date/Time: Wednesday, February 15, 2017 23:18 - CONCLUSION: No acute disease. Jeferson Cervantes MD CAT scan of the abdomen shows fatty liver disease without any ascites. His reviewed the images myself and there is no stool no distention of the intestines. It appears as though the patient only outlet for this fluid has been his diarrhea. He is minimally tachycardic with a heart rate of 100 upon discharge. He has no shortness of breath initial laboratory workup does not suggest CHF kidney disease or liver disease is a possibility for his edema. The edema is very trace. The patient is stable for discharge and work up with his primary care provider, recommended continuing aggressive hydration and discussed return to ED criteria. Procedures Procedure Narrative Bedside ultrasound of the abdomen shows no ascites in Morison's pouch nor the splenorenal recess. No urinary retention seen, Diagnosis Primary Impression: Abdominal distension Additional Impression: Diarrhea Disposition: 01 DISCHARGE HOME Condition: Stable Samuel Morrell MD Feb 15, 2017 22:49
[2017-02-15 22:54] VITALS: O2SAT 98
[2017-02-15] MEDS ORDERED: SODIUM CHLORIDE 0.9% FLUSH 10 ML FLUSH IVF PRN (23:00)
[2017-02-15 23:06] LABS: AUTOMATED NEUTROPHIL # 3.6 TH/MM3 (1.8-7.7); BASOPHIL # 0.1 TH/MM3 (0-0.2); BASOPHIL % 1.3 % (0.0-2.0); EOSINOPHIL # 0.1 TH/MM3 (0-0.4); EOSINOPHIL % 1.9 % (0.0-4.0); HEMATOCRIT 36.5 % (39.0-51.0); LYMPH % 27.8 % (9.0-44.0); LYMPHOCYTE # 1.7 TH/MM3 (1.0-4.8); MEAN CELL VOLUME 80.6 FL (80.0-100.0); MEAN CORPUSCULAR HEMOGLOBIN 26.9 PG (27.0-34.0); MEAN CORPUSCULAR HGB CONC 33.4 % (32.0-36.0); MONO % 10.8 % (0.0-8.0); NEUT % 58.2 % (16.0-70.0); PLATELET COUNT 374 TH/MM3 (150-450); RED BLOOD COUNT 4.53 MIL/MM3 (4.50-5.90); RED CELL DISTRIBUTION WIDTH 26.9 % (11.6-17.2); WHITE BLOOD COUNT 6.2 TH/MM3 (4.0-11.0)
[2017-02-15 23:14] LABS: HEMO FLAGS AUTO DIFF
[2017-02-15 23:17] LABS: APTT (PATIENT) 26.1 SEC (24.3-30.1); PROTHROMBIN TIME - PATIENT 10.9 SEC (9.8-11.6)
--- NOTE | 2017-02-15 23:26 | RADRPT ---
EXAM DATE/TIME: 02/15/2017 23:18 [facility] COMPARISON: CHEST PA & LAT, November 12, 2016, 12:56. INDICATIONS : Pt has been unable to void for 24 hours prior to arrival. MEDICAL HISTORY : Diabetes mellitus type II. Hypertension Hypercholesterolemia. GERD SURGICAL HISTORY : None. ENCOUNTER: Initial ACUITY: 1 day PAIN SCORE: 7/10 LOCATION: Bilateral chest FINDINGS: PA and lateral views of the chest demonstrate the lungs to be symmetrically aerated without evidence of mass, infiltrate or effusion. The cardiomediastinal contours are unremarkable. Osseous structure s are intact. There are multiple overlying electrocardiogram leads. Overlying catheter tubing is note d on the lateral. CONCLUSION: No acute disease. Jeferson Cervantes MD on February 15, 2017 at 23:23 Board Certified Radiologist. This report was verified electronically.
[2017-02-15 23:38] LABS: ANION GAP 12 MEQ/L (5-15); AST (GOT) 35 U/L (15-37); BICARBONATE 22.7 MEQ/L (21.0-32.0); BLOOD UREA NITROGEN 7 MG/DL (7-18); CHLORIDE 102 MEQ/L (98-107); GLOMERULAR FILTRATION RATE 90 ML/MIN (>89); MAGNESIUM 1.4 MG/DL (1.5-2.5); POTASSIUM 3.6 MEQ/L (3.5-5.1); SODIUM (NA) 137 MEQ/L (136-145)
[2017-02-15 23:39] LABS: ALT (GPT) 73 U/L (12-78)
[2017-02-15 23:43] LABS: ALKALINE PHOSPHATASE 190 U/L (45-117); TOTAL BILIRUBIN ADULT 0.2 MG/DL (0.2-1.0)
[2017-02-15 23:46] LABS: CREATINE KINASE 61 U/L (39-308)
[2017-02-15 23:54] LABS: BANDS 1 % (0-6); CORRECTED NUCLEATED RBC 1 /100 WBC (0-0); EOSINOPHILS 1 % (0-4); MYELOCYTES 1 % (0-0); NEUTROPHIL # MANUAL DIFF 3.9 TH/MM3 (1.8-7.7); POLYS (SEG NEUTROPHILS) 61 % (16-70); SCAN/DIFF FINAL DIFF MANUAL; WBC DIFF SAMPLE 100
[2017-02-15 23:55] LABS: ACANTHOCYTES OCC (NORMAL); OVALOCYTES 1+ (NORMAL); PLATELET ESTIMATE SMEAR NORMAL (NORMAL); PLATELET MORPHOLOGY NORMAL (NORMAL)
[2017-02-15 23:58] LABS: BACTERIA, URINE RARE /hpf; BLOOD, URINE NEG (NEG); COMMENT (UR) CULT NOT INDICATED; CULTURE IF INDICATED CULT NOT INDICATED; GLUCOSE,URINE NEG (NEG); HYALINE CAST, URINE 2 /lpf (RARE); KETONE, URINE TRACE mg/dL (NEG); MUCUS URINE MANY /lpf (OCC); NITRITE,URINE NEG (NEG); SQUAMOUS EPITHELIAL CELL URINE 1 /hpf (0-5); URINE COLOR YELLOW (YELLW/STRAW)
[2017-02-16] MEDS ORDERED: IOHEXOL 350 MG/ML 10 ML VIAL (for RAD DIAG) IV ONE (00:31)
--- NOTE | 2017-02-16 00:48 | RADRPT ---
EXAM DATE/TIME: 02/16/2017 00:25 [facility] COMPARISON: CT ABDOMEN & PELVIS W CONTRAST, December 31, 2016, 21:53. INDICATIONS : Distention. Unable to void past 24 hours. IV CONTRAST: 96 cc Omnipaque 350 (iohexol) IV ORAL CONTRAST: No oral contrast ingested. RADIATION DOSE: 11.42 CTDIvol (mGy) MEDICAL HISTORY : Cardiovascular disease. Deep venous thrombosis. Chronic obstructive pulmonary disease. Pulmonary embo lism. Diabetes. COPD. Hypertension. SURGICAL HISTORY : Appendectomy. Right hip surgery. ENCOUNTER: Initial ACUITY: 1 day PAIN SCALE: 7/10 LOCATION: Bilateral lower quadrant TECHNIQUE: Volumetric scanning of the abdomen and pelvis was performed. Using automated exposure control and ad justment of the mA and/or kV according to patient size, radiation dose was kept as low as reasonably achievable to obtain optimal diagnostic quality images. FINDINGS: LOWER LUNGS: The visualized lower lungs are clear. LIVER: Homogeneous density without lesion. There is no dilation of the biliary tree. No calcified gallston es. Moderate hepatic steatosis. SPLEEN: Normal size without lesion. PANCREAS: Within normal limits. KIDNEYS: Normal in size and shape. There is no mass, stone or hydronephrosis. ADRENAL GLANDS: Within normal limits. VASCULAR: There is no aortic aneurysm. BOWEL/MESENTERY: The stomach, small bowel, and colon demonstrate no acute abnormality. There is no free intraperitone al air or fluid. ABDOMINAL WALL: Within normal limits. RETROPERITONEUM: There is no lymphadenopathy. BLADDER: No wall thickening or mass. REPRODUCTIVE: Within normal limits. INGUINAL: There is no lymphadenopathy or hernia. MUSCULOSKELETAL: Status post right hip arthroplasty with streak artifact. CONCLUSION: 1. The kidneys, ureter and bladder are unremarkable in appearance with no renal calculi or obstructio n. There is an air-fluid level in the anterior bladder. This could be due to recent instrumentation. The bladder is partially obscured by streak artifact from the right arthroplasty since 2. Moderate hepatic steatosis. Jeferson Cervantes MD on February 16, 2017 at 0:43 Board Certified Radiologist. This report was verified electronically.
--- NOTE | 2017-02-16 09:35 | EKG ---
Date Performed: 02/15/2017 Time Performed: 23:01:51 PTAGE: 51 years EKG: SINUS TACHYCARDIA MODERATE VOLTAGE CRITERIA FOR LVH, CONSIDER NORMAL VARIANT NONSPECIFIC T- WAVE ABNORMALITY ABNORMAL RHYTHM ECG PREVIOUS TRACING : 01/30/2017 14.32 DOCTOR: Anant Kirkpatrick Interpretating Date/Time 02/16/2017 09:30:53
== END 2017-02-16 01:28 | disposition home or self-care (01) ==
LOC: NEPE 22:12
DX: R14.0 Abdominal distension (gaseous) (principal); R00.0 Tachycardia, unspecified; R19.7 Diarrhea, unspecified; K76.0 Fatty (change of) liver, not elsewhere classified
CPT/HCPCS: 71020; 74177; 80053; 81001; 82550; 83690; 83735; 83880; 84484; 85007; 85027; 85610; 85730; 93005; 99285; Q9967

== ENCOUNTER 2017-02-18 21:46 | Emergency (ER) | payer BC ==
[~2017-02-18] VITALS: Ht 175.3 cm; Wt 105.5 kg
[2017-02-18 21:52] VITALS: BP 128/92; PULSE 118; RESP 18; TEMP 98.1; O2SAT 94
--- NOTE | 2017-02-18 22:23 | PD ---
HPI Chief Complaint: Diabetic Time Seen by Provider: 22:03 Travel History International Travel<30 days: No Contact w/Intl Traveler<30days: No Traveled to known affect area: No History of Present Illness HPI Patient's 51. The patient 59 years old and had a blood glucose measurement about 320 at home. Upon arrival to the ER was measured at 159. He was unable to take metformin today as he underwent a nuclear medicine stress test. A day or 2 ago he underwent a CT scan with contrast and was also unable takes metformin at that time. In the ER he has no complaints specifically no nausea vomiting chest pain shortness of breath dizziness polyuria or polydipsia. Elevation of blood sugar was noticed after eating dinner. PFSH Past Medical History Hx Anticoagulant Therapy: Yes (Eliquis) Arthritis: Yes Asthma: Yes Autoimmune Disease: No Blood Disorders: No Anxiety: Yes Depression: No Heart Rhythm Problems: Yes (sinus tachycardia) Cancer: No Cardiovascular Problems: Yes (Tachycardia, HTN) High Cholesterol: Yes Chemotherapy: No Chest Pain: No Congestive Heart Failure: No COPD: Yes Cerebrovascular Accident: No Diabetes: Yes (Takes Metformin ) Patient Takes Glucophage: Yes Diminished Hearing: No Deep Vein Thrombosis: Yes (DECEMBER 2015: RIGHT LEG WITH PULMONARY EMBOLISM) Endocrine: Yes Gastrointestinal Disorders: No GERD: Yes Genitourinary: No Headaches: No Hiatal Hernia: No Heparin Induced Thrombocytopen: No Hypertension: Yes (New HTN since last admit per pt/not documented) Immune Disorder: No Implanted Vascular Access Dvce: Yes Kidney Stones: No Musculoskeletal: Yes (HIP SURGERIES, ARTHRITIS) Neurologic: No Psychiatric: Yes Reproductive: No Migraines: No Pneumonia: Yes (NOVEMBER 2015) Radiation Therapy: No Renal Failure: No Seizures: No Sickle Cell Disease: No Sleep Apnea: No Thyroid Disease: No Ulcer: No Past Surgical History AICD: No Appendectomy: Yes Arteriovenous Shunt: No Insulin Pump: No Joint Replacement: Yes (BILAT HIP REPLACEMENT) Pacemaker: No Tonsillectomy: Yes Social History Alcohol Use: No Tobacco Use: No Substance Use: No Allergies-Medications (Allergen,Severity, Reaction): Coded Allergies: Tetracycline (Verified Allergy, Severe, throat swells, 02/18/17) Demerol (Verified Allergy, Intermediate, hallucinations, 02/18/17) Reported Meds & Prescriptions Reported Meds & Active Scripts Active Potassium Chloride ER (Potassium Chloride) 20 Meq Tab 20 Meq PO BID Flomax (Tamsulosin HCl) 0.4 Mg Cap 0.4 Mg PO DAILY Glucophage (Metformin HCl) 500 Mg Tab 500 Mg PO BIDPC Ferosul (Ferrous Sulfate) 325 Mg Tablet 325 Mg PO BID Furosemide 40 Mg Tab 40 Mg PO DAILY Flexeril (Cyclobenzaprine HCl) 10 Mg Tab 10 Mg PO Q8H PRN Eliquis (Apixaban) 5 Mg Tab 5 Mg PO BID Hydrocodone-Acetaminophen 5-325 mg Tab 2 Tab PO Q4H PRN Ativan (Lorazepam) 0.5 Mg Tab 0.5 Mg PO BID Reported Fluconazole 100 Mg Tab 100 Mg PO BID Omeprazole 40 Mg Cap 40 Mg PO HS Matzim LA (Diltiazem ER 24 HR) 360 Mg Can 360 Mg PO DAILY Duoneb (Ipratropium-Albuterol Neb) 0.5-2.5 Mg/3 Ml Neb 1 Nebule NEB QID PRN Symbicort Inh (Budesonide/Formoterol Fumarate) 160-4.5 Mcg/Act Aero 2 Puff INH Q12HR Singulair (Montelukast Sodium) 10 Mg Tab 10 Mg PO HS Lipitor (Atorvastatin Calcium) 20 Mg Tab 20 Mg PO HS Carafate (Sucralfate) 1 Gm Tab 1 Gm PO TID On empty stomach Levalbuterol Neb (Levalbuterol HCl) 1.25 Mg/3 Ml Neb 1.25 Mg NEB BID PRN Review of Systems Except as stated in HPI: all other systems reviewed are Neg General / Constitutional: No: Fever, Chills Physical Exam Narrative GENERAL: 51-year-old male well-nourished well-developed pleasant SKIN: Focused skin assessment warm/dry. HEAD: Atraumatic. Normocephalic. EYES: Pupils equal and round. No scleral icterus. No injection or drainage. ENT: No nasal bleeding or discharge. Mucous membranes pink and moist. NECK: Trachea midline. No JVD. CARDIOVASCULAR: Regular rate and rhythm. No murmur appreciated. RESPIRATORY: No accessory muscle use. Clear to auscultation. Breath sounds equal bilaterally. GASTROINTESTINAL: Abdomen soft, non-tender, nondistended. Hepatic and splenic margins not palpable. MUSCULOSKELETAL: No obvious deformities. No clubbing. No cyanosis. No edema. NEUROLOGICAL: Awake and alert. No obvious cranial nerve deficits. Motor grossly within normal limits. Normal speech. PSYCHIATRIC: Appropriate mood and affect; insight and judgment normal. Data Data Last Documented VS Vital Signs Date Time Temp Pulse Resp B/P Pulse Ox O2 Delivery O2 Flow Rate FiO2 02/18/17 22:08 Room Air 02/18/17 21:52 98.1 118 18 128/92 94 Vital signs reviewed MDM Medical Decision Making Medical Screen Exam Complete: Yes Emergency Medical Condition: Yes Differential Diagnosis DKA, normoglycemia, hyperglycemia Narrative Course The patient has no symptoms to offer although he did have an elevated blood sugar after eating dinner while he is unable to take metformin. His blood sugar here at 159 is of less concern in the absence of symptoms. He can be discharged home. We discussed return precautions. He can resume metformin tomorrow. He is mildly tachycardic however upon review of his heart rate over the past year and we can see that it is predominantly tachycardic. Diagnosis Primary Impression: Hyperglycemia Referrals: Myron Woodward MD 2 days Additional Instructions: You have a choice when it comes to health care, and we are glad that you chose [facility]. Hopefully, we have met your expectations on today's visit. You are welcome to return to [facility] at any time, as we are committed to meeting the health care needs of our community. Med/Other Pt SpecificInfo: No Change to Meds Disposition: 01 DISCHARGE HOME Condition: Stable Braulio Rosario MD Feb 18, 2017 22:23
== END 2017-02-18 22:27 | disposition home or self-care (01) ==
LOC: PHED 21:46
DX: E11.65 Type 2 diabetes mellitus with hyperglycemia (principal); Z79.84 Long term (current) use of oral hypoglycemic drugs
CPT/HCPCS: 99281

== ENCOUNTER 2017-05-30 06:21 | Emergency (ER) | payer BC ==
[~2017-05-30] VITALS: Ht 188 cm; Wt 95.0 kg
[2017-05-30 06:24] VITALS: BP 150/92; PULSE 130; PULSE 151; RESP 26; O2SAT 96
[2017-05-30 06:25] VITALS: BP 163/105; PULSE 226; RESP 30; O2SAT 90
[2017-05-30] MEDS ORDERED: PRED50 PO (06:32)
[2017-05-30 06:36] VITALS: O2SAT 96
[2017-05-30] MEDS: RESP: ALBUTEROL 2.5 MG/IPRATROPIUM 0.5 MG NEB (SCH) INH ×2 (06:38→06:39)
--- NOTE | 2017-05-30 06:44 | PD ---
HPI Chief Complaint: Respiratory Distress Time Seen by Provider: 06:28 Travel History International Travel<30 days: No Contact w/Intl Traveler<30days: No Traveled to known affect area: No History of Present Illness HPI The patient is a 52-year-old male who presents to the emergency department for shortness of breath. The patient notes a 2 day history of shortness of breath with wheezing and productive cough producing white to yellow sputum. The patient states he saw his primary physician, Dr. Myron Woodward , who prescribed him prednisone 50 mg daily and gave him nebulizers and 2 antibiotic shots. The patient has been using his nebulizers at home and taking the prednisone, however, his symptoms have progressed. The patient denies any history of tobacco use, does note a history of asthma. The patient also notes a history of pulmonary embolism for which he takes Eliquis. The patient denies any new swelling of the lower extremities, does notice shortness of breath is worse with exertion, however, is present at rest. He denies any acute chest pain, nausea, vomiting, or abdominal pain. The patient's symptoms are moderate , possibly exacerbated by history of underlying asthma and previous pulmonary embolism. The patient denies any known history of congestive heart failure. PFSH Past Medical History Hx Anticoagulant Therapy: Yes (Eliquis) Arthritis: Yes Asthma: Yes Autoimmune Disease: No Blood Disorders: No Anxiety: Yes Depression: No Heart Rhythm Problems: Yes (sinus tachycardia) Cancer: No Cardiovascular Problems: Yes (Tachycardia, HTN) High Cholesterol: Yes Chemotherapy: No Chest Pain: No Congestive Heart Failure: No COPD: Yes Cerebrovascular Accident: No Diabetes: Yes (Takes Metformin ) Patient Takes Glucophage: Yes Diminished Hearing: No Deep Vein Thrombosis: Yes (DECEMBER 2015: RIGHT LEG WITH PULMONARY EMBOLISM) Endocrine: Yes Gastrointestinal Disorders: No GERD: Yes Genitourinary: No Headaches: No Hiatal Hernia: No Heparin Induced Thrombocytopen: No Hypertension: Yes (New HTN since last admit per pt/not documented) Immune Disorder: No Implanted Vascular Access Dvce: Yes Kidney Stones: No Musculoskeletal: Yes (HIP SURGERIES, ARTHRITIS) Neurologic: No Psychiatric: Yes Reproductive: No Migraines: No Pneumonia: Yes (NOVEMBER 2015) Radiation Therapy: No Renal Failure: No Seizures: No Sickle Cell Disease: No Sleep Apnea: No Thyroid Disease: No Ulcer: No Past Surgical History Abdominal Surgery: No AICD: No Appendectomy: Yes Arteriovenous Shunt: No Cardiac Surgery: No Endocrine Surgery: No Eye Surgery: No Genitourinary Surgery: Yes (apendectomy) Gynecologic Surgery: No Insulin Pump: No Joint Replacement: Yes (BILAT HIP REPLACEMENT) Neurologic Surgery: No Oral Surgery: Yes (TONSILLECTOMY) Pacemaker: No Thoracic Surgery: No Tonsillectomy: Yes Other Surgery: Yes (HIPS, APPENDIX, TONSILS) Social History Alcohol Use: Yes Tobacco Use: No Substance Use: No Allergies-Medications (Allergen,Severity, Reaction): Coded Allergies: doxycycline (Unverified Allergy, Severe, throat swells, 04/22/17) minocycline (Unverified Allergy, Severe, throat swells, 04/22/17) tigecycline (Unverified Allergy, Severe, throat swells, 04/22/17) meperidine (Unverified Allergy, Intermediate, hallucinations, 04/22/17) Reported Meds & Prescriptions Reported Meds & Active Scripts Active Proventil Hfa 6.7 GM Inh (Albuterol Sulfate) 90 Mcg/Act Aer 2 Puff INH Q4-6H PRN Potassium Chloride ER (Potassium Chloride) 20 Meq Tab 20 Meq PO BID Flomax (Tamsulosin HCl) 0.4 Mg Cap 0.4 Mg PO DAILY Glucophage (Metformin HCl) 500 Mg Tab 500 Mg PO BIDPC Ferosul (Ferrous Sulfate) 325 Mg Tablet 325 Mg PO BID Furosemide 40 Mg Tab 40 Mg PO DAILY Flexeril (Cyclobenzaprine HCl) 10 Mg Tab 10 Mg PO Q8H PRN Eliquis (Apixaban) 5 Mg Tab 5 Mg PO BID Hydrocodone-Acetaminophen 5-325 mg Tab 2 Tab PO Q4H PRN Ativan (Lorazepam) 0.5 Mg Tab 0.5 Mg PO BID Reported Prednisone 50 Mg Tab 50 Mg PO DAILY Omeprazole 40 Mg Cap 40 Mg PO HS Matzim LA (Diltiazem ER 24 HR) 360 Mg Can 360 Mg PO DAILY Duoneb (Ipratropium-Albuterol Neb) 0.5-2.5 Mg/3 Ml Neb 1 Nebule NEB QID PRN Symbicort Inh (Budesonide/Formoterol Fumarate) 160-4.5 Mcg/Act Aero 2 Puff INH Q12HR Singulair (Montelukast Sodium) 10 Mg Tab 10 Mg PO HS Lipitor (Atorvastatin Calcium) 20 Mg Tab 20 Mg PO HS Carafate (Sucralfate) 1 Gm Tab 1 Gm PO TID On empty stomach Levalbuterol Neb (Levalbuterol HCl) 1.25 Mg/3 Ml Neb 1.25 Mg NEB BID PRN Review of Systems Except as stated in HPI: all other systems reviewed are Neg General / Constitutional: No: Fever Cardiovascular: No: Chest Pain or Discomfort Respiratory: Positive: Cough, Shortness of Breath, Wheezing, No: Orthopnea Gastrointestinal: No: Nausea, Vomiting Musculoskeletal: No: Edema Neurologic: No: Dizziness Physical Exam Narrative GENERAL: Awake, alert, nontoxic-appearing 52-year-old male appears his stated age and is in mild respiratory distress. SKIN: Focused skin assessment warm/dry. HEAD: Atraumatic. Normocephalic. EYES: Pupils equal and round. No scleral icterus. No injection or drainage. ENT: No nasal bleeding or discharge. Mucous membranes pink and moist. NECK: Trachea midline. No JVD. CARDIOVASCULAR: Regular, tachycardic with a heart rate of 120. RESPIRATORY: Mild tachypnea with a respiratory rate of 24. Prolonged expiratory phase, wheezes noted but mostly up in the upper lung fair, possibly transmitted from the throat. GASTROINTESTINAL: Abdomen soft, non-tender, nondistended. No rebound tenderness. MUSCULOSKELETAL: No obvious deformities. No clubbing. No cyanosis. Trace edema with superficial varicosities noted. NEUROLOGICAL: Awake and alert. No obvious cranial nerve deficits. Motor grossly within normal limits. Normal speech. PSYCHIATRIC: Appropriate mood and affect; insight and judgment normal. Data Data Last Documented VS Vital Signs Date Time Temp Pulse Resp B/P (MAP) Pulse Ox O2 Delivery O2 Flow Rate FiO2 05/30/17 08:19 (87) 05/30/17 07:19 97 12 96 Room Air Orders Orders Complete Blood Count With Diff (05/30/17 06:33) Comprehensive Metabolic Panel (05/30/17 06:33) B-Type Natriuretic Peptide (05/30/17 06:33) Act Partial Throm Time (Ptt) (05/30/17 06:33) Prothrombin Time / Inr (Pt) (05/30/17 06:33) Magnesium (Mg) (05/30/17 06:33) Ckmb (Isoenzyme) Profile (05/30/17 06:33) Troponin I (05/30/17 06:33) Iv Access Insert/Monitor (05/30/17 06:33) Electrocardiogram (05/30/17 06:33) Ecg Monitoring (05/30/17 06:33) Oximetry (05/30/17 06:33) Oxygen Administration (05/30/17 06:33) Chest, Single Ap (05/30/17 06:33) Sodium Chloride 0.9% Flush (Ns Flush) (05/30/17 06:45) Albuterol-Ipratropium Neb (Duoneb Neb) (05/30/17 06:45) Sodium Chlorid 0.9% 500 Ml Inj (Ns 500 M (05/30/17 06:45) CKMB (05/30/17 06:35) CKMB% (05/30/17 06:35) Labs Laboratory Tests Test 05/30/17 06:35 White Blood Count 11.8 TH/MM3 Red Blood Count 5.39 MIL/MM3 Hemoglobin 15.0 GM/DL Hematocrit 45.1 % Mean Corpuscular Volume 83.8 FL Mean Corpuscular Hemoglobin 27.8 PG Mean Corpuscular Hemoglobin Concent 33.2 % Red Cell Distribution Width 16.1 % Platelet Count 310 TH/MM3 Mean Platelet Volume 8.0 FL Neutrophils (%) (Auto) 81.8 % Lymphocytes (%) (Auto) 11.5 % Monocytes (%) (Auto) 6.3 % Eosinophils (%) (Auto) 0.1 % Basophils (%) (Auto) 0.3 % Neutrophils # (Auto) 9.7 TH/MM3 Lymphocytes # (Auto) 1.4 TH/MM3 Monocytes # (Auto) 0.7 TH/MM3 Eosinophils # (Auto) 0.0 TH/MM3 Basophils # (Auto) 0.0 TH/MM3 CBC Comment DIFF FINAL Differential Comment Prothrombin Time 10.7 SEC Prothromb Time International Ratio 1.0 RATIO Activated Partial Thromboplast Time 26.1 SEC Blood Urea Nitrogen 18 MG/DL Creatinine 1.06 MG/DL Random Glucose 153 MG/DL Total Protein 7.6 GM/DL Albumin 4.3 GM/DL Calcium Level 9.5 MG/DL Magnesium Level 2.2 MG/DL Alkaline Phosphatase 148 U/L Aspartate Amino Transf (AST/SGOT) 17 U/L Alanine Aminotransferase (ALT/SGPT) 41 U/L Total Bilirubin 0.3 MG/DL Sodium Level 139 MEQ/L Potassium Level 3.6 MEQ/L Chloride Level 105 MEQ/L Carbon Dioxide Level 24.2 MEQ/L Anion Gap 10 MEQ/L Estimat Glomerular Filtration Rate 73 ML/MIN Total Creatine Kinase 214 U/L Creatine Kinase MB 5.5 NG/ML Troponin I LESS THAN 0.02 NG/ML B-Type Natriuretic Peptide 9 PG/ML MDM Medical Decision Making Medical Screen Exam Complete: Yes Emergency Medical Condition: Yes Medical Record Reviewed: Yes Interpretation(s) EKG reveals sinus tachycardia with a heart rate of 120. Q wave noted in lead 3. Nonspecific T wave changes. Chest x-ray is unremarkable Differential Diagnosis Differential diagnosis includes asthma exacerbation, reactive airway disease, pneumonia, bronchitis, pulmonary embolism, pulmonary edema, congestive heart failure, acute coronary syndrome. Narrative Course IV was established, labs are drawn and sent, and the patient was placed on cardiac telemetry monitoring and continuous pulse oximetry monitoring. EKG was ordered and interpreted. Chest x-ray was obtained. The patient received Solu- Medrol 125 mg intravenously and duo nebs 2. I did review the EMR the patient had [address] pulmonary angiograms perform this year which revealed a pulmonary was in the right lower lobe, the patient is currently anticoagulated with Eliquis, I doubt pulmonary embolism as the cause of his acute dyspnea. The patient's chest x-rays unremarkable. The patient was signed out to the oncoming physician at 7 AM with laboratory evaluation pending. If the patient' s symptoms improved the patient can be discharged home, if he continues to be symptomatic he may need 23 hour observation for failing outpatient management of asthma. Diagnosis Primary Impression: Acute asthma exacerbation Qualified Codes: J45.901 - Unspecified asthma with (acute) exacerbation Additional Impression: Wheezing Scripts Albuterol 6.7 GM Inh (Proventil Hfa 6.7 GM Inh) 90 Mcg/Act Aer 2 PUFF INH Q4-6H Y for SHORTNESS OF BREATH, #1 INHALER 0 Refills Prov: Doreen Albert MD 05/30/17 Condition: Stable Kaleb Swanson MD May 30, 2017 06:44
[2017-05-30] MEDS ORDERED: SODIUM CHLORID 0.9% 500 ML INJ 500 ML IV ONE (06:45)
[2017-05-30] MEDS ORDERED: SODIUM CHLORIDE 0.9% FLUSH 10 ML FLUSH IVF PRN (06:45)
[2017-05-30 06:52] VITALS: BP 150/92; PULSE 102; RESP 20; O2SAT 97
[2017-05-30 06:52] LABS: AUTOMATED NEUTROPHIL # 9.7 TH/MM3 (1.8-7.7); BASOPHIL % 0.3 % (0.0-2.0); EOSINOPHIL % 0.1 % (0.0-4.0); HEMATOCRIT 45.1 % (39.0-51.0); HEMO FLAGS DIFF FINAL; LYMPH % 11.5 % (9.0-44.0); LYMPHOCYTE # 1.4 TH/MM3 (1.0-4.8); MEAN CELL VOLUME 83.8 FL (80.0-100.0); MEAN CORPUSCULAR HEMOGLOBIN 27.8 PG (27.0-34.0); MEAN CORPUSCULAR HGB CONC 33.2 % (32.0-36.0); MONO % 6.3 % (0.0-8.0); NEUT % 81.8 % (16.0-70.0); PLATELET COUNT 310 TH/MM3 (150-450); RED BLOOD COUNT 5.39 MIL/MM3 (4.50-5.90); RED CELL DISTRIBUTION WIDTH 16.1 % (11.6-17.2); WHITE BLOOD COUNT 11.8 TH/MM3 (4.0-11.0)
[2017-05-30 07:01] LABS: APTT (PATIENT) 26.1 SEC (24.3-30.1); PROTHROMBIN TIME - PATIENT 10.7 SEC (9.8-11.6)
[2017-05-30 07:19] VITALS: BP 126/68; PULSE 97; RESP 12; O2SAT 96
[2017-05-30 07:22] LABS: ALT (GPT) 41 U/L (12-78); ANION GAP 10 MEQ/L (5-15); AST (GOT) 17 U/L (15-37); BICARBONATE 24.2 MEQ/L (21.0-32.0); BLOOD UREA NITROGEN 18 MG/DL (7-18); CHLORIDE 105 MEQ/L (98-107); GLOMERULAR FILTRATION RATE 73 ML/MIN (>89); MAGNESIUM 2.2 MG/DL (1.5-2.5); POTASSIUM 3.6 MEQ/L (3.5-5.1); SODIUM (NA) 139 MEQ/L (136-145)
--- NOTE | 2017-05-30 07:22 | RADRPT ---
EXAM DATE/TIME: 05/30/2017 06:38 [facility] COMPARISON: CHEST SINGLE AP, January 30, 2017, 14:56. INDICATIONS : Shortness of breath. MEDICAL HISTORY : Chronic obstructive pulmonary disease. Diabetes mellitus type II. Hypertension. Hypercholestero lemia. GERD. Asthma. Blood clots in lungs. SURGICAL HISTORY : None. ENCOUNTER: Initial ACUITY: 3 days PAIN SCORE: 0/10 LOCATION: chest FINDINGS: A single view of the chest demonstrates the lungs to be symmetrically aerated without evidence of mas s, infiltrate or effusion. The cardiomediastinal contours are unremarkable. Osseous structures are intact. CONCLUSION: The lungs are clear. Adriel Thompson MD on May 30, 2017 at 7:21 Board Certified Radiologist. This report was verified electronically.
[2017-05-30 07:27] LABS: ALKALINE PHOSPHATASE 148 U/L (45-117); CREATINE KINASE 214 U/L (39-308); TOTAL BILIRUBIN ADULT 0.3 MG/DL (0.2-1.0)
[2017-05-30 07:39] LABS: CKMB 5.5 NG/ML (0.5-3.6)
[2017-05-30] MEDS ORDERED: ALBU6.7H INH (07:55)
--- NOTE | 2017-05-30 07:55 | PD ---
Physical Exam Date Seen by Provider: May 30, 2017 Time Seen by Provider: 07:00 Narrative Patient signed out to me at [address] Swanson, please see previous notes for further details. Patient apparently has history of PE, currently on Eliquis , has had intermittent problems with respiratory symptoms, here for coughing, shortness of breath, has had respiratory treatments and is awaiting reevaluation. On reevaluation at 7:45 AM after treatments, he is feeling some improvements, vital signs are stable with saturations in the high 90% range. He is fairly comfortable on evaluation, only mild wheezes on auscultation. No significant respiratory distress at this point. Chest x-ray was unremarkable and BNP is unremarkable. At this point, I have discussed the findings with the patient and have discussed further care with the patient. Considering his improvement and respiratory status, I am planning to release him with close follow-up to his primary care physician. Patient states he is comfortable with the plan and is released to follow-up closely with primary care doctor. Return for worsening in symptoms as needed. The plan has been discussed with him and he states understanding. Laboratory Tests Test 05/30/17 06:35 White Blood Count 11.8 TH/MM3 (4.0-11.0) Neutrophils (%) (Auto) 81.8 % (16.0-70.0) Neutrophils # (Auto) 9.7 TH/MM3 (1.8-7.7) Random Glucose 153 MG/DL (74-106) Alkaline Phosphatase 148 U/L (45-117) Estimat Glomerular Filtration Rate 73 ML/MIN (>89) Creatine Kinase MB 5.5 NG/ML (0.5-3.6) Troponin I LESS THAN 0.02 NG/ML Last 24 hours Impressions Chest X-Ray 05/30/1733 Signed Impressions: Service Date/Time: Tuesday, May 30, 2017 06:38 - CONCLUSION: The lungs are clear. Adriel Thompson MD Data Data Last Documented VS Vital Signs Date Time Temp Pulse Resp B/P (MAP) Pulse Ox O2 Delivery O2 Flow Rate FiO2 05/30/17 07:19 97 12 126/68 (87) 96 Room Air Orders Orders Complete Blood Count With Diff (05/30/17 06:33) Comprehensive Metabolic Panel (05/30/17 06:33) B-Type Natriuretic Peptide (05/30/17 06:33) Act Partial Throm Time (Ptt) (05/30/17 06:33) Prothrombin Time / Inr (Pt) (05/30/17 06:33) Magnesium (Mg) (05/30/17 06:33) Ckmb (Isoenzyme) Profile (05/30/17 06:33) Troponin I (05/30/17 06:33) Iv Access Insert/Monitor (05/30/17 06:33) Electrocardiogram (05/30/17 06:33) Ecg Monitoring (05/30/17 06:33) Oximetry (05/30/17 06:33) Oxygen Administration (05/30/17 06:33) Chest, Single Ap (05/30/17 06:33) Sodium Chloride 0.9% Flush (Ns Flush) (05/30/17 06:45) Albuterol-Ipratropium Neb (Duoneb Neb) (05/30/17 06:45) Sodium Chlorid 0.9% 500 Ml Inj (Ns 500 M (05/30/17 06:45) CKMB (05/30/17 06:35) CKMB% (05/30/17 06:35) Labs Laboratory Tests Test 05/30/17 06:35 White Blood Count 11.8 TH/MM3 Red Blood Count 5.39 MIL/MM3 Hemoglobin 15.0 GM/DL Hematocrit 45.1 % Mean Corpuscular Volume 83.8 FL Mean Corpuscular Hemoglobin 27.8 PG Mean Corpuscular Hemoglobin Concent 33.2 % Red Cell Distribution Width 16.1 % Platelet Count 310 TH/MM3 Mean Platelet Volume 8.0 FL Neutrophils (%) (Auto) 81.8 % Lymphocytes (%) (Auto) 11.5 % Monocytes (%) (Auto) 6.3 % Eosinophils (%) (Auto) 0.1 % Basophils (%) (Auto) 0.3 % Neutrophils # (Auto) 9.7 TH/MM3 Lymphocytes # (Auto) 1.4 TH/MM3 Monocytes # (Auto) 0.7 TH/MM3 Eosinophils # (Auto) 0.0 TH/MM3 Basophils # (Auto) 0.0 TH/MM3 CBC Comment DIFF FINAL Differential Comment Prothrombin Time 10.7 SEC Prothromb Time International Ratio 1.0 RATIO Activated Partial Thromboplast Time 26.1 SEC Blood Urea Nitrogen 18 MG/DL Creatinine 1.06 MG/DL Random Glucose 153 MG/DL Total Protein 7.6 GM/DL Albumin 4.3 GM/DL Calcium Level 9.5 MG/DL Magnesium Level 2.2 MG/DL Alkaline Phosphatase 148 U/L Aspartate Amino Transf (AST/SGOT) 17 U/L Alanine Aminotransferase (ALT/SGPT) 41 U/L Total Bilirubin 0.3 MG/DL Sodium Level 139 MEQ/L Potassium Level 3.6 MEQ/L Chloride Level 105 MEQ/L Carbon Dioxide Level 24.2 MEQ/L Anion Gap 10 MEQ/L Estimat Glomerular Filtration Rate 73 ML/MIN Total Creatine Kinase 214 U/L Creatine Kinase MB 5.5 NG/ML Troponin I LESS THAN 0.02 NG/ML B-Type Natriuretic Peptide 9 PG/ML MDM Medical Record Reviewed: Yes Supervised Visit with MELVINA: No Diagnosis Primary Impression: Acute asthma exacerbation Qualified Codes: J45.901 - Unspecified asthma with (acute) exacerbation Additional Impression: Wheezing Med/Other Pt SpecificInfo: Prescription(s) given Scripts Albuterol 6.7 GM Inh (Proventil Hfa 6.7 GM Inh) 90 Mcg/Act Aer 2 PUFF INH Q4-6H Y for SHORTNESS OF BREATH, #1 INHALER 0 Refills Prov: Doreen Albert MD 05/30/17 Disposition: 01 DISCHARGE HOME Condition: Stable Doreen Albert MD May 30, 2017 07:55
--- NOTE | 2017-05-30 16:22 | EKG ---
Date Performed: 05/30/2017 Time Performed: 06:31:57 PTAGE: 52 years EKG: SINUS TACHYCARDIA NONSPECIFIC T-WAVE ABNORMALITY ABNORMAL RHYTHM ECG Since PREVIOUS TRACING , no significant change noted PREVIOUS TRACIN02/15/2017 23.01 DOCTOR: Nichol Peterson Interpretating Date/Time 05/30/2017 16:22:09
== END 2017-05-30 08:20 | disposition home or self-care (01) ==
LOC: NEPE 06:21
DX: J45.901 Unspecified asthma with (acute) exacerbation (principal); J44.9 Chronic obstructive pulmonary disease, unspecified; R00.0 Tachycardia, unspecified
CPT/HCPCS: 71010; 80053; 82550; 82552; 83735; 83880; 84484; 85025; 85610; 85730; 93005; 94640; 94664; 99285; J7040

== ENCOUNTER 2017-07-08 03:03 | Inpatient (IN) | payer BC ==
[2017-07-08] VITALS (14 sets, daily range): BP systolic 142–173; BP diastolic 76–100; PULSE 85–107; RESP 18–24; TEMP 97.5–98.9; O2SAT 93–98
[~2017-07-08] VITALS: Ht 175.3 cm; Wt 99.1 kg
[~2017-07-08 03:03] MED LIST changes: +ALBU6.7H INH; -FLUC100T2 PO; +PRED50 PO
[2017-07-08] MEDS ORDERED: RESP: ALBUTEROL 2.5 MG/IPRATROPIUM 0.5 MG NEB (PRN) ONE (03:14)
[2017-07-08] MEDS ORDERED: SODIUM CHLORIDE 0.9% FLUSH 10 ML FLUSH IVF PRN (03:15)
[2017-07-08] MEDS ORDERED: methylPREDNISolone SOD SUCC 125 MG/2 ML VIAL IV PUSH ONE (03:15)
[2017-07-08] MEDS: RESP: ALBUTEROL 2.5 MG/IPRATROPIUM 0.5 MG NEB (SCH) INH ×5 (03:17→22:00)
[2017-07-08] MEDS ORDERED: LEVO500T8 PO (03:19)
[2017-07-08 03:31] LABS: AUTOMATED NEUTROPHIL # 8.1 TH/MM3 (1.8-7.7); BASOPHIL % 0.2 % (0.0-2.0); HEMATOCRIT 42.7 % (39.0-51.0); HEMOGLOBIN 14.3 GM/DL (13.0-17.0); LYMPH % 8.5 % (9.0-44.0); LYMPHOCYTE # 0.8 TH/MM3 (1.0-4.8); MEAN CELL VOLUME 84.8 FL (80.0-100.0); MEAN CORPUSCULAR HEMOGLOBIN 28.3 PG (27.0-34.0); MEAN CORPUSCULAR HGB CONC 33.4 % (32.0-36.0); MEAN PLATELET VOLUME 7.1 FL (7.0-11.0); MONO % 5.2 % (0.0-8.0); MONOCYTE # 0.5 TH/MM3 (0-0.9); NEUT % 86.1 % (16.0-70.0); PLATELET COUNT 183 TH/MM3 (150-450); RED BLOOD COUNT 5.04 MIL/MM3 (4.50-5.90); RED CELL DISTRIBUTION WIDTH 17.7 % (11.6-17.2); WHITE BLOOD COUNT 9.4 TH/MM3 (4.0-11.0)
[2017-07-08 03:40] LABS: INTERNATIONAL NORMALIZED RATIO 0.9 RATIO; PROTHROMBIN TIME - PATIENT 10.2 SEC (9.8-11.6)
--- NOTE | 2017-07-08 03:42 | PD ---
HPI Chief Complaint: Respiratory Symptoms Time Seen by Provider: 03:13 Travel History International Travel<30 days: No Contact w/Intl Traveler<30days: No Traveled to known affect area: No History of Present Illness HPI The patient is a 52 year old male who presents to the [facility] emergency department with a history of onset of worsening shortness of breath that began 3 days ago. The patient reports that he has last been seen by his primary care physician, Dr. Woodward yesterday. He reports that he was started on levofloxacin. He reports that he was previously on a steroid taper and is back down to his baseline dose of prednisone 10 mg a day. He reports that he's been on prednisone 10 mg daily since 2016. He reports that he has been intubated twice since 2016. He denies any prior history of congestive heart failure. He reports that he was told based on a stress test done a few months ago that he had a silent LA previously. His networks software consultant is Dr. Moody. The patient denies any prior history of smoking. He reports that he has a history of asthma. The patient additionally reports having a history of DVT and pulmonary embolism. The patient is chronically anticoagulated on Eliquis. He reports that he has been taking his medication as prescribed. The patient denies having any recent fevers. He reports that his cough is dry in character. He denies having any worsening pedal edema. He denies having any calf pain or erythema. On review of systems otherwise, the patient denies having any neck pain, abdominal pain, vomiting, diarrhea, urinary symptoms, or neurologic symptoms. [facility] Past Medical History Narrative Medical The patient's past medical history is significant for diabetes mellitus, DVT, PE , arthritis, asthma, anxiety disorder, tachycardia, history of pneumonia, history of hypertension, hyperlipidemia, depression. Hx Anticoagulant Therapy: Yes (Eliquis) Arthritis: Yes Asthma: Yes Autoimmune Disease: No Blood Disorders: No Anxiety: Yes Depression: No Heart Rhythm Problems: Yes (sinus tachycardia) Cancer: No Cardiovascular Problems: Yes (Tachycardia, HTN) High Cholesterol: Yes Chemotherapy: No Chest Pain: No Congestive Heart Failure: No COPD: Yes Cerebrovascular Accident: No Diabetes: Yes (Takes Metformin ) Patient Takes Glucophage: Yes Diminished Hearing: No Deep Vein Thrombosis: Yes (DECEMBER 2015: RIGHT LEG WITH PULMONARY EMBOLISM X2) Endocrine: Yes Gastrointestinal Disorders: No GERD: Yes Genitourinary: No Headaches: No Hiatal Hernia: No Heparin Induced Thrombocytopen: No Hypertension: Yes (New HTN since last admit per pt/not documented) Immune Disorder: No Implanted Vascular Access Dvce: Yes Kidney Stones: No Musculoskeletal: Yes (HIP SURGERIES, ARTHRITIS) Neurologic: No Psychiatric: Yes Reproductive: No Migraines: No Myocardial Infarction: Yes Pneumonia: Yes (NOVEMBER 2015) Radiation Therapy: No Renal Failure: No Seizures: No Sickle Cell Disease: No Sleep Apnea: No Thyroid Disease: No Ulcer: No Tetanus Vaccination: > 5 Years Influenza Vaccination: Yes Past Surgical History Narrative Surgical The patient's past surgical history is significant for right hip surgery 2, bilateral hip replacements, tonsillectomy, adenoidectomy, appendectomy Abdominal Surgery: No AICD: No Appendectomy: Yes Arteriovenous Shunt: No Cardiac Surgery: No Endocrine Surgery: No Eye Surgery: No Genitourinary Surgery: Yes (apendectomy) Gynecologic Surgery: No Insulin Pump: No Joint Replacement: Yes (BILAT HIP REPLACEMENT) Neurologic Surgery: No Oral Surgery: Yes (TONSILLECTOMY) Pacemaker: No Thoracic Surgery: No Tonsillectomy: Yes Other Surgery: Yes (HIPS, APPENDIX, TONSILS) Social History Alcohol Use: Yes Tobacco Use: No Substance Use: No Allergies-Medications (Allergen,Severity, Reaction): Coded Allergies: doxycycline (Unverified Allergy, Severe, throat swells, 04/22/17) minocycline (Unverified Allergy, Severe, throat swells, 04/22/17) tigecycline (Unverified Allergy, Severe, throat swells, 04/22/17) meperidine (Unverified Allergy, Intermediate, hallucinations, 04/22/17) Reported Meds & Prescriptions Reported Meds & Active Scripts Active Proventil Hfa 6.7 GM Inh (Albuterol Sulfate) 90 Mcg/Act Aer 2 Puff INH Q4-6H PRN Potassium Chloride ER (Potassium Chloride) 20 Meq Tab 20 Meq PO BID Flomax (Tamsulosin HCl) 0.4 Mg Cap 0.4 Mg PO DAILY Glucophage (Metformin HCl) 500 Mg Tab 500 Mg PO BIDPC Ferosul (Ferrous Sulfate) 325 Mg Tablet 325 Mg PO BID Furosemide 40 Mg Tab 40 Mg PO DAILY Eliquis (Apixaban) 5 Mg Tab 5 Mg PO BID Ativan (Lorazepam) 0.5 Mg Tab 0.5 Mg PO BID Reported Levofloxacin 500 Mg Tablet 500 Mg PO DAILY Prednisone 50 Mg Tab 10 Mg PO DAILY Omeprazole 40 Mg Cap 40 Mg PO HS Matzim LA (Diltiazem ER 24 HR) 360 Mg Can 360 Mg PO DAILY Duoneb (Ipratropium-Albuterol Neb) 0.5-2.5 Mg/3 Ml Neb 1 Nebule NEB QID PRN Symbicort Inh (Budesonide/Formoterol Fumarate) 160-4.5 Mcg/Act Aero 2 Puff INH Q12HR Singulair (Montelukast Sodium) 10 Mg Tab 10 Mg PO HS Lipitor (Atorvastatin Calcium) 20 Mg Tab 20 Mg PO HS Levalbuterol Neb (Levalbuterol HCl) 1.25 Mg/3 Ml Neb 1.25 Mg NEB BID PRN Review of Systems Except as stated in HPI: all other systems reviewed are Neg General / Constitutional: No: Fever Eyes: No: Visual changes HENT: No: Headaches Cardiovascular: Positive: Chest Pain or Discomfort (tightness), Dyspnea on exertion Respiratory: Positive: Cough, Shortness of Breath, Wheezing Gastrointestinal: No: Abdominal Pain Genitourinary: No: Dysuria Musculoskeletal: No: Pain Skin: No Rash Neurologic: No: Weakness Psychiatric: No: Depression Endocrine: No: Polydipsia Hematologic/Lymphatic: No: Easy Bruising Physical Exam Narrative General: The patient is a well-developed well-nourished male on arrival has conversational dyspnea with a prolonged expiratory phase of breathing and expiratory wheezes audible Head and Neck exam: Head is normocephalic atraumatic. Eyes: EOMI, pupils are equal round and reactive to light. Nose: Midline septum with pink mucous membranes Mouth: Dentition unremarkable. Moist mucus membranes. Posterior oropharynx is not erythematous. No tonsillar hypertrophy. Uvula midline. Airway patent. Neck: No palpable lymphadenopathy. No nuchal rigidity. No thyromegaly. Cardiovascular: Regular rate and rhythm without murmurs, gallops, or rubs. Lungs: Expiratory wheezes audible throughout bilateral lung fair, worse posteriorly. The patient has conversational dyspnea noted. The patient has accessory muscle use noted. The patient has no paroxysmal abdominal breathing. Abdomen: Soft, without tenderness to palpation in all 4 quadrants of the abdomen. No guarding, rebound, or rigidity. Normal bowel sounds are audible. No tenderness on palpation of McBurney's point. Extremities: No clubbing, cyanosis, or edema. 2+ pulses in all 4 extremities. No calf tenderness on palpation. Back: No spinous process tenderness to palpation. No costovertebral angle tenderness to palpation. Neurologic Exam: Grossly nonfocal. Skin Exam: No rash noted. Intact skin that is warm and dry. Data Data Last Documented VS Vital Signs Date Time Temp Pulse Resp B/P (MAP) Pulse Ox O2 Delivery O2 Flow Rate FiO2 07/08/17 05:12 95 18 152/100 (117) 98 Nasal Cannula 2.00 07/08/17 03:17 21 07/08/17 03:04 98.9 Orders Orders Complete Blood Count With Diff (07/08/17 03:13) Comprehensive Metabolic Panel (07/08/17 03:13) B-Type Natriuretic Peptide (07/08/17 03:13) Act Partial Throm Time (Ptt) (07/08/17 03:13) Prothrombin Time / Inr (Pt) (07/08/17 03:13) Magnesium (Mg) (07/08/17 03:13) Ckmb (Isoenzyme) Profile (07/08/17 03:13) Troponin I (07/08/17 03:13) Iv Access Insert/Monitor (07/08/17 03:13) Electrocardiogram (07/08/17 03:13) Ecg Monitoring (07/08/17 03:13) Oximetry (07/08/17 03:13) Oxygen Administration (07/08/17 03:13) Chest, Single Ap (07/08/17 03:13) Sodium Chloride 0.9% Flush (Ns Flush) (07/08/17 03:15) Methylprednisolone So Succ Inj (Solumedr (07/08/17 03:15) Albuterol-Ipratropium Neb (Duoneb Neb) (07/08/17 03:15) Albuterol-Ipratropium Neb (Duoneb Neb) (07/08/17 03:14) Magnesium Sulfate 1 Gm Premix (Magnesium (07/08/17 03:45) CKMB (07/08/17 03:25) CKMB% (07/08/17 03:25) Ceftriaxone Inj (Rocephin Inj) (07/08/17 04:15) Azithromycin Inj (Zithromax Inj) (07/08/17 04:15) Blood Culture (07/08/17 04:14) Lactic Acid Sepsis Protocol (07/08/17 04:14) Albuterol Neb (Albuterol Neb) (07/08/17 05:15) Admit Order (Ed Use Only) (07/08/17 05:15) Labs Laboratory Tests Test 07/08/17 03:25 07/08/17 05:05 White Blood Count 9.4 TH/MM3 Red Blood Count 5.04 MIL/MM3 Hemoglobin 14.3 GM/DL Hematocrit 42.7 % Mean Corpuscular Volume 84.8 FL Mean Corpuscular Hemoglobin 28.3 PG Mean Corpuscular Hemoglobin Concent 33.4 % Red Cell Distribution Width 17.7 % Platelet Count 183 TH/MM3 Mean Platelet Volume 7.1 FL Neutrophils (%) (Auto) 86.1 % Lymphocytes (%) (Auto) 8.5 % Monocytes (%) (Auto) 5.2 % Eosinophils (%) (Auto) 0.0 % Basophils (%) (Auto) 0.2 % Neutrophils # (Auto) 8.1 TH/MM3 Lymphocytes # (Auto) 0.8 TH/MM3 Monocytes # (Auto) 0.5 TH/MM3 Eosinophils # (Auto) 0.0 TH/MM3 Basophils # (Auto) 0.0 TH/MM3 CBC Comment AUTO DIFF Differential Total Cells Counted 100 Neutrophils % (Manual) 79 % Band Neutrophils % 3 % Lymphocytes % 7 % Monocytes % 3 % Neutrophils # (Manual) 8.5 TH/MM3 Myelocytes 6 % Promyelocytes 2 % Differential Comment FINAL DIFF MANUAL Platelet Estimate NORMAL Platelet Morphology Comment NORMAL Ovalocytes 1+ Acanthocytes OCC Prothrombin Time 10.2 SEC Prothromb Time International Ratio 0.9 RATIO Activated Partial Thromboplast Time 23.5 SEC Blood Urea Nitrogen 13 MG/DL Creatinine 0.97 MG/DL Random Glucose 151 MG/DL Total Protein 7.0 GM/DL Albumin 3.5 GM/DL Calcium Level 8.6 MG/DL Magnesium Level 2.2 MG/DL Alkaline Phosphatase 124 U/L Aspartate Amino Transf (AST/SGOT) 40 U/L Alanine Aminotransferase (ALT/SGPT) 94 U/L Total Bilirubin 0.5 MG/DL Sodium Level 137 MEQ/L Potassium Level 3.8 MEQ/L Chloride Level 102 MEQ/L Carbon Dioxide Level 24.7 MEQ/L Anion Gap 10 MEQ/L Estimat Glomerular Filtration Rate 81 ML/MIN Total Creatine Kinase 235 U/L Creatine Kinase MB 6.7 NG/ML Troponin I LESS THAN 0.02 NG/ML B-Type Natriuretic Peptide LESS THAN 2 PG/ML Lactic Acid Level 2.3 mmol/L MDM Medical Decision Making Medical Screen Exam Complete: Yes Emergency Medical Condition: Yes Medical Record Reviewed: Yes Interpretation(s) Last Impressions Chest X-Ray 07/08/173 Signed Impressions: Service Date/Time: Saturday, July 08, 2017 03:26 - CONCLUSION: Bilateral interstitial infiltrates. Adin Guillermo MD Differential Diagnosis Asthma exacerbation, versus pneumonia, versus pulmonary embolism, versus new- onset congestive heart failure, versus pneumothorax Narrative Course During the course of the patients emergency department visit, the patients history, examination, and differential diagnosis were reviewed with the patient. The patient was placed on a cardiac care unit nurse with oximetry and frequent blood pressure monitoring. The patient had IV access obtained and blood work sent for analysis. The patient had an ECG done on arrival. The patient's ECG reveals a sinus rhythm heart rate of 92, no acute ST segment changes. QRS duration is 102 ms, QTC 391 ms. The patient was initially provided Solu-Medrol 125 mg IV, DuoNeb 3, magnesium 1 g IV will be administered over one hour. The patients laboratory studies were reviewed and remarkable for a white count of 9.4, hemoglobin 14.3, platelets 183 with 79 neutrophils, 3 bands, lymphocytes 7. CMP is remarkable for glucose of 151, AST 40, ALT 94, alkaline phosphatase 124, CPK 235, CK-MB 6.7, troponin I less than 0.02, BNP is less than 2, PT 10.2, PTT 23.5. Lactic acid is 2.3 Radiology studies were reviewed and remarkable for a chest x-ray shows bilateral interstitial infiltrates. The patient will be admitted to the hospital for an asthma exacerbation associated with bilateral pneumonia. A call was placed out to the patient's primary care physician. The patient's primary care physician's call service reported that Dr. Woodward does not take all from 8 PM to 8 AM. They recommended the hospitalist service for admission. I then spoke to Dr. Mchugh. The patients results were discussed with the patient, including the plan of care. I explained that further testing and/ or monitoring is indicated based on the patients history, examination, and/ or laboratory findings. Therefore, I recommended admission for additional evaluation. The patient expressed understanding and was agreeable with this plan. The patient was admitted to the hospital in guarded condition and sent to a bed under the care of the [facility] service. Physician Communication Physician Communication The patient's case including history, pertinent physical examination findings, and laboratory studies were discussed with Dr. Mchugh. It was agreed that the patient would be admitted to the [facility] service. Diagnosis Primary Impression: Bilateral pneumonia Qualified Codes: J18.9 - Pneumonia, unspecified organism Additional Impression: Asthma exacerbation Qualified Codes: J45.51 - Severe persistent asthma with (acute) exacerbation Admitting Information Admitting Physician Requests: Amanda Cervantes MD Jul 08, 2017 03:42
[2017-07-08] MEDS ORDERED: MAGNESIUM SULFATE 1 GM PREMIX 100 ML IV ONE (03:45)
--- NOTE | 2017-07-08 03:52 | RADRPT ---
EXAM DATE/TIME: 07/08/2017 03:26 [place] COMPARISON: CHEST SINGLE AP, May 30, 2017, 6:38. INDICATIONS : Short of breath. MEDICAL HISTORY : Hypercholesterolemia. Hypertension Chronic obstructive pulmonary disease. Diabetes mellitus type II. SURGICAL HISTORY : None. ENCOUNTER: Initial ACUITY: 1 day PAIN SCORE: 0/10 LOCATION: Bilateral chest FINDINGS: There is mild bilateral primarily central interstitial infiltrate, left worse than right. No evidence of lobar consolidation or pleural effusion. Cardiac contours are grossly stable accounting for diffe rences in technique and projection. CONCLUSION: Bilateral interstitial infiltrates. Adin Guillermo MD on July 08, 2017 at 3:47 Board Certified Radiologist. This report was verified electronically.
[2017-07-08 04:06] LABS: ALKALINE PHOSPHATASE 124 U/L (45-117); ALT (GPT) 94 U/L (12-78); TOTAL BILIRUBIN ADULT 0.5 MG/DL (0.2-1.0); TROPONIN I LESS THAN 0.02 NG/ML (0.02-0.05)
[2017-07-08 04:09] LABS: ALBUMIN 3.5 GM/DL (3.4-5.0); AST (GOT) 40 U/L (15-37); BICARBONATE 24.7 MEQ/L (21.0-32.0); BLOOD UREA NITROGEN 13 MG/DL (7-18); CALCIUM 8.6 MG/DL (8.5-10.1); CHLORIDE 102 MEQ/L (98-107); CREATININE 0.97 MG/DL (0.60-1.30); GLOMERULAR FILTRATION RATE 81 ML/MIN (>89); GLUCOSE,RANDOM 151 MG/DL (74-106); MAGNESIUM 2.2 MG/DL (1.5-2.5); SODIUM (NA) 137 MEQ/L (136-145)
[2017-07-08 04:11] LABS: BANDS 3 % (0-6); LYMPHOCYTES 7 % (9-44); MONOCYTES 3 % (0-8); MYELOCYTES 6 % (0-0); NEUTROPHIL # MANUAL DIFF 8.5 TH/MM3 (1.8-7.7); POLYS (SEG NEUTROPHILS) 79 % (16-70); PROMYELOCYTES 2 % (0-0)
[2017-07-08 04:12] LABS: ACANTHOCYTES OCC (NORMAL)
[2017-07-08 04:13] LABS: OVALOCYTES 1+ (NORMAL)
[2017-07-08] MEDS ORDERED: cefTRIAXone INJ 1,000 MG in SODIUM CHLORIDE 0.9% INJ 100 ML IV ONE (04:15)
[2017-07-08] MEDS ORDERED: AZITHROMYCIN INJ 500 MG in SODIUM CHLOR 0.9% 250 ML INJ 250 ML IV ONE (04:15)
[2017-07-08] MEDS ORDERED: SENNOSIDES 8.6 MG TAB PO PRN (05:15)
[2017-07-08] MEDS ORDERED: ONDANSETRON HCL 4 MG/2 ML VIAL IVP PRN (05:15)
[2017-07-08] MEDS ORDERED: RESP: ALBUTEROL 2.5 MG/3 ML NEB (SCH) NEB ONE (05:15)
[2017-07-08] MEDS ORDERED: BISACODYL 10 MG SUPP RECTAL PRN (05:15)
[2017-07-08] MEDS ORDERED: NALOXONE HCL 0.4 MG/ML AMP IV PUSH PRN (05:15)
[2017-07-08] MEDS ORDERED: LACTULOSE SYRUP 20 GM/30 ML CUP PO PRN (05:15)
[2017-07-08] MEDS ORDERED: MAGNESIUM HYDROXIDE SUSP 30 ML CUP PO PRN (05:15)
[2017-07-08] MEDS ORDERED: RESP: ALBUTEROL 2.5 MG/3 ML NEB (PRN) INH (05:30)
[2017-07-08 05:44] LABS: LACTIC ACID SEPSIS PROTOCOL 2.3 mmol/L (0.4-2.0)
[2017-07-08] MEDS: SODIUM CHLORIDE 0.9% FLUSH 10 ML FLUSH IV FLUSH SCH ×2 (07:30→21:37)
[2017-07-08] MEDS: DILTIAZEM-CD 180 MG CAP ER PO SCH (08:02)
[2017-07-08] MEDS: LORazepam 0.5 MG TAB PO SCH ×2 (08:02→21:35)
[2017-07-08] MEDS: TAMSULOSIN HCL 0.4 MG CAP PO SCH (08:02)
[2017-07-08] MEDS: APIXABAN 5 MG TABLET PO SCH ×2 (08:02→21:36)
[2017-07-08] MEDS: INSULIN ASPART SUPPLEMENTAL SCALE SQ SCH ×4 (09:05→21:00)
[2017-07-08] MEDS: methylPREDNISolone SOD SUCC 125 MG/2 ML VIAL IV PUSH SCH ×3 (09:31→21:35)
[2017-07-08] MEDS: BUDESONIDE-FORMOTEROL 160/4.5 MCG INHALER INH SCH ×2 (11:34→21:36)
--- NOTE | 2017-07-08 13:16 | PD.CONS ---
History of Present Illness Service Infectious disease Consult Requested By Dr Sophia Woodward Reason for Consult Evaluate patient with pneumonia Primary Care Physician Myron Woodward MD Diagnoses: History of Present Illness Patient seen and examined. Records reviewed. Patient is a 52-year-old male, with history of asthma, admitted to the hospital for 3 day history of worsening shortness of breath. Patient stated that he's been having problem with shortness of breath over the last several weeks. He has been seeing his primary care doctor and the patient stated that he was getting IM steroids, as well as an IM antibiotics. About a week prior to admission patient was switched to a Medrol Dosepak, and when he was down to 10 mg, his breathing started getting worse again. Patient also was switched to Levaquin by mouth which started yesterday. He has some occasional coughing which has gotten worse over the last 3 days. He doesn't really bring up a lot of sputum. He also has been having episodes of feeling warm and chills but didn 't when he takes his temperature it it is usually normal. This has been going on over the last 5 days. Because of the shortness of breath, patient presented to the hospital, and has been admitted. Since admission he has not had any fever. His WBC is normal. Chest x-ray showing bilateral interstitial infiltrates. He denies any nausea or vomiting. Denies any ear pain. Has not had any diarrhea or urinary complaints. His also has been having some respiratory infection and was just given an antibiotic by her own primary care physician. Infectious disease consultation has been requested to assist with evaluation and treatment. Past Family Social History Allergies: Coded Allergies: doxycycline (Unverified Allergy, Severe, throat swells, 04/22/17) minocycline (Unverified Allergy, Severe, throat swells, 04/22/17) tigecycline (Unverified Allergy, Severe, throat swells, 04/22/17) meperidine (Unverified Allergy, Intermediate, hallucinations, 04/22/17) Past Medical History PE DVT RLE Asthma, has recurrent exacerbation Hyperlipidemia Past Surgical History Bilateral hip surgery Reported Medications I attest that I obtained, updated or reviewed the home and current medications. Reported Meds & Active Scripts Active Proventil Hfa 6.7 GM Inh (Albuterol Sulfate) 90 Mcg/Act Aer 2 Puff INH Q4-6H PRN Potassium Chloride ER (Potassium Chloride) 20 Meq Tab 20 Meq PO BID Flomax (Tamsulosin HCl) 0.4 Mg Cap 0.4 Mg PO DAILY Glucophage (Metformin HCl) 500 Mg Tab 500 Mg PO BIDPC Ferosul (Ferrous Sulfate) 325 Mg Tablet 325 Mg PO BID Furosemide 40 Mg Tab 40 Mg PO DAILY Eliquis (Apixaban) 5 Mg Tab 5 Mg PO BID Ativan (Lorazepam) 0.5 Mg Tab 0.5 Mg PO BID Reported Levofloxacin 500 Mg Tablet 500 Mg PO DAILY Prednisone 50 Mg Tab 10 Mg PO DAILY Omeprazole 40 Mg Cap 40 Mg PO HS Matzim LA (Diltiazem ER 24 HR) 360 Mg Can 360 Mg PO DAILY Duoneb (Ipratropium-Albuterol Neb) 0.5-2.5 Mg/3 Ml Neb 1 Nebule NEB QID PRN Symbicort Inh (Budesonide/Formoterol Fumarate) 160-4.5 Mcg/Act Aero 2 Puff INH Q12HR Singulair (Montelukast Sodium) 10 Mg Tab 10 Mg PO HS Lipitor (Atorvastatin Calcium) 20 Mg Tab 20 Mg PO HS Levalbuterol Neb (Levalbuterol HCl) 1.25 Mg/3 Ml Neb 1.25 Mg NEB BID PRN Active Ordered Medications I attest that I obtained, updated or reviewed the home and current medications. Current Medications Medications (Trade) Dose Ordered Sig/Gabi Route Start Time Stop Time Status Last Admin (NS Flush) 2 ml UNSCH PRN IV FLUSH 07/08/17 05:15 (NS Flush) 2 ml BID IV FLUSH 07/08/17 09:00 07/08/17 07:30 (Zofran Inj) 4 mg Q6H PRN IVP 07/08/17 05:15 (Narcan Inj) 0.4 mg UNSCH PRN IV PUSH 07/08/17 05:15 (Milk Of Magnesia Liq) 30 ml Q12H PRN PO 07/08/17 05:15 (Senokot) 17.2 mg Q12H PRN PO 07/08/17 05:15 (Dulcolax Supp) 10 mg DAILY PRN RECTAL 07/08/17 05:15 (Lactulose Liq) 30 ml DAILY PRN PO 07/08/17 05:15 (Duoneb Neb) 1 ampule Q6HR NEB INH 07/08/17 10:00 07/08/17 09:11 (Albuterol Neb) 2.5 mg Q2HR NEB PRN INH 07/08/17 05:30 (SoluMEDROL INJ) 60 mg Q6H IV PUSH 07/08/17 10:00 07/08/17 09:31 (Zithromax) 500 mg Q24H PO 07/09/17 05:30 07/12/17 05:29 (Eliquis) 5 mg BID PO 07/08/17 09:00 07/08/17 08:02 (Lipitor) 20 mg HS PO 07/08/17 21:00 (Symbicort 160-4.5 Inh) 2 puff Q12HR INH 07/08/17 09:00 07/08/17 11:34 (Cardizem Cd) 360 mg DAILY PO 07/08/17 09:00 07/08/17 08:02 (Ativan) 0.5 mg BID PO 07/08/17 09:00 07/08/17 08:02 (Singulair) 10 mg HS PO 07/08/17 21:00 (Flomax) 0.4 mg DAILY PO 07/08/17 09:00 07/08/17 08:02 (Protonix) 40 mg HS PO 07/08/17 21:00 (NovoLOG SUPPLEMENTAL SCALE) 1 ACHS SLIDING SCALE SQ 07/08/17 08:00 07/08/17 12:39 Family History CAD Social History No Tobacco. occasional ETOH. No Illicit Drugs. Physical Exam Vital Signs Vital Signs Date Time Temp Pulse Resp B/P (MAP) Pulse Ox O2 Delivery O2 Flow Rate FiO2 07/08/17 12:00 97.5 92 22 159/82 (107) 97 07/08/17 09:11 96 Nasal Cannula 2.00 07/08/17 08:00 97.6 100 20 160/89 (112) 98 07/08/17 06:36 88 07/08/17 06:21 Nasal Cannula 2.00 07/08/17 06:00 97.5 86 22 152/85 (107) 98 07/08/17 05:40 07/08/17 05:12 95 18 152/100 (117) 98 Nasal Cannula 2.00 07/08/17 03:17 97 2.00 21 07/08/17 03:14 98 Nasal Cannula 2.00 07/08/17 03:10 98 20 97 Room Air 07/08/17 03:04 98.9 107 24 163/96 (118) 93 Room Air Physical Exam GENERAL: Patient is a well-nourished, well-developed male, awake and alert, not in respiratory distress. SKIN: Warm and dry. No generalized rash, no ecchymoses and no evidence of embolic lesions. HEAD: Atraumatic. Normocephalic. No temporal wasting, or tenderness. EYES: [place] conjunctiva. No petechia or hemorrhage. Pupils equal, round and reactive to light. Extraocular movements full and intact. No scleral icterus. No injection or drainage. EARS, NOSE AND THROAT: Nose without bleeding or purulent nasal discharge. No sinus tenderness. Mucous membranes pink and moist. No oral lesions noted. No exudate. No oral thrush. NECK: Trachea midline. Supple and not tender, no meningeal signs CARDIOVASCULAR: Regular rate and rhythm. No murmurs, rubs or gallops heard RESPIRATORY: Diffuse wheezing bilaterally ABDOMEN: Soft, non-tender, nondistended. Bowel sounds present and normoactive. No guarding. No rebound. No organomegaly. EXTREMITIES: No clubbing, cyanosis, or edema. No joint effusion, has good ROM. No calf tenderness. Well perfused and warm. NEUROLOGICAL: Awake and alert. Cranial nerves grossly intact. Motor grossly within normal limits. PSYCHIATRIC: Normal affect, calm and cooperative. LINE: No evidence of infection Laboratory Laboratory Tests Test 07/08/17 03:25 07/08/17 05:05 07/08/17 05:33 07/08/17 08:52 White Blood Count 9.4 Red Blood Count 5.04 Hemoglobin 14.3 Hematocrit 42.7 Mean Corpuscular Volume 84.8 Mean Corpuscular Hemoglobin 28.3 Mean Corpuscular Hemoglobin Concent 33.4 Red Cell Distribution Width 17.7 Platelet Count 183 Mean Platelet Volume 7.1 Neutrophils (%) (Auto) 86.1 Lymphocytes (%) (Auto) 8.5 Monocytes (%) (Auto) 5.2 Eosinophils (%) (Auto) 0.0 Basophils (%) (Auto) 0.2 Neutrophils # (Auto) 8.1 Lymphocytes # (Auto) 0.8 Monocytes # (Auto) 0.5 Eosinophils # (Auto) 0.0 Basophils # (Auto) 0.0 CBC Comment AUTO DIFF Differential Total Cells Counted 100 Neutrophils % (Manual) 79 Band Neutrophils % 3 Lymphocytes % 7 Monocytes % 3 Neutrophils # (Manual) 8.5 Myelocytes 6 Promyelocytes 2 Differential Comment FINAL DIFF MANUAL Platelet Estimate NORMAL Platelet Morphology Comment NORMAL Ovalocytes 1+ Acanthocytes OCC Prothrombin Time 10.2 Prothromb Time International Ratio 0.9 Activated Partial Thromboplast Time 23.5 Blood Urea Nitrogen 13 Creatinine 0.97 Random Glucose 151 Total Protein 7.0 Albumin 3.5 Calcium Level 8.6 Magnesium Level 2.2 Alkaline Phosphatase 124 Aspartate Amino Transf (AST/SGOT) 40 Alanine Aminotransferase (ALT/SGPT) 94 Total Bilirubin 0.5 Sodium Level 137 Potassium Level 3.8 Chloride Level 102 Carbon Dioxide Level 24.7 Anion Gap 10 Estimat Glomerular Filtration Rate 81 Total Creatine Kinase 235 Creatine Kinase MB 6.7 Troponin I LESS THAN 0.02 B-Type Natriuretic Peptide LESS THAN 2 Lactic Acid Level 2.3 4.9 Blood Gas Puncture Site RT RADIAL Blood Gas Patient Temperature 98.6 Blood Gas HCO3 24 Blood Gas Base Excess 0.7 Blood Gas Oxygen Saturation 97 Arterial Blood pH 7.47 Arterial Blood Partial Pressure CO2 33 Arterial Blood Partial Pressure O2 125 Arterial Blood Oxygen Content 18.9 Arterial Blood Carboxyhemoglobin 0.9 Arterial Blood Methemoglobin 0.8 Blood Gas Hemoglobin 13.7 Oxygen Delivery Device NASAL CANNULA Blood Gas Liter Flow 2 Date/Time Source Procedure Growth Status 07/08/17 05:05 Blood Peripheral Aerobic Blood Culture Pending Received 07/08/17 05:05 Blood Peripheral Anaerobic Blood Culture Pending Received Result Diagram: 07/08/17 0325 07/08/17 0325 Imaging RADIOLOGY STUDIES/FILMS REVIEWED Chest X-Ray 07/08/17 0313 Signed Impressions: Service Date/Time: Saturday, July 08, 2017 03:26 - CONCLUSION: Bilateral interstitial infiltrates. Adin Guillermo MD Assessment and Plan Assessment and Plan IMPRESSION Exacerbation of asthma Bilateral inmterstitial infiltrates, ?viral, ?atypical PNA Hx PE Hx theo infection R hip, S/P Rx RECOMMENDATION Get influenza testing Will also send urine for Legionella and pneumococcal antigen Start IV Levaquin Patient also getting IV steroids Follow cultures Monitor progress I will determine course of antibiotics once workup is completed I will follow along with you Thank you for this consultation Discussed Condition With Explained plan to the patient Aria Hassan MD Jul 08, 2017 13:16
[2017-07-08] MEDS: LEVOFLOXACIN 750 MG PREMIX INJ 150 ML IV SCH (13:59)
[2017-07-08] MEDS: RESP: ALBUTEROL 2.5 MG/3 ML NEB (SCH) INH ×4 (14:20→23:43)
--- NOTE | 2017-07-08 16:33 | MB ---
cc: MARY HERNANDEZ DATE OF CONSULTATION: 07/08/2017 REASON FOR CONSULTATION: Exacerbation of bronchial asthma. HISTORY OF PRESENT ILLNESS Mr. Link is a 52-year-old male known history of severe bronchial asthma, recurrent exacerbation several episodes of respiratory failure requiring intubation, mechanical ventilation, history of pulmonary embolization and presently on anticoagulant therapy. He has been complaining of shortness of breath and wheeze for over a week now. He has been given antibiotic therapy, steroid therapy and told me he has received multiple steroid injections at his primary care's office for same without improvement. He comes to the emergency room where is hospitalized with exacerbation of his asthma. PAST MEDICAL HISTORY: 1. His past medical history that of bronchial asthma 2. septic arthritis of the right hip 3. Deep venous thrombosis 4. Pulmonary embolus. 5. Hyperlipidemia MEDICATIONS medications at present include 1. Levofloxacin. 2. Prednisone. 3. Omeprazole 4. LA 5. Diltiazem. 6. DuoNeb. 7. Symbicort. 8. Singulair. 9. Lipitor 10. nebulizer. 11. Albuterol b.i.d. 12. He is sent home on Ativan as needed. ALLERGIES TETRACYCLINE MEPERIDINE FAMILY HISTORY: family history noncontributory. REVIEW OF SYSTEMS 12-point review of systems as per HPI and past history otherwise negative. PHYSICAL EXAMINATION: IN GENERAL: On exam the patient is alert. VITAL SIGNS: Temperature 98, pulse 90, respirations 20, blood pressure 160, O2 sat 97% on liter nasal cannula. HEAD, EYES, EARS, NOSE, AND THROAT: Exam unremarkable. Eyes without icterus. NECK: The neck is without adenopathy or thyroid enlargement. CHEST: Scattered rhonchi, and wheezing bilaterally. CARDIOVASCULAR SYSTEM: Cardiac exam PMI that is distant S1-S2 audible. No murmur or rub. ABDOMEN: Lax bowel sounds. EXTREMITIES: No clubbing, cyanosis or edema. SKIN: Normal. No lymphadenopathy. LABORATORY DATA White count 9.4, hemoglobin 15, hematocrit 42, platelets 183,000 sodium 137, potassium 3.8, BUN 13, creatinine 0.9. Arterial blood gas today pH 77, pCO2 33, pO2 125 on 2 liters oxygen nasal cannula. IMPRESSION 1. Asthma exacerbation. 2. Deep venous thrombosis p.o. with deep venous thrombosis with eliquis. 3. History of septic arthritis right hip. PLAN 1. The patient will be maintained on bronchodilator therapy. Antibiotic therapy, steroid therapy. 2. Nebulized albuterol has been initiated and appropriately so 3. We will follow his course along with you and depending on progress proceed further. I do thank you for asking to partake in Mr. Link's care. Mary Hernandez MD WWW/ /3:57 PM /4:09 PM
--- NOTE | 2017-07-08 19:51 | EKG ---
Date Performed: 07/08/2017 Time Performed: 03:11:35 PTAGE: 52 years EKG: Sinus rhythm BASELINE ARTIFACT WHEN COMPARED TO PRIOR EKG THE PATIENT IS NO LONGER TACHYCARDIC. NORMAL ECG PREVIOUS TRACING : 05/30/2017 06.31 DOCTOR: Nichol Peterson Interpretating Date/Time 07/08/2017 19:49:53
[2017-07-08] MEDS: CHLORPHENIR/HYDROCOD LIQUID 8 MG/10 MG/5 ML CUP PO SCH (21:34)
[2017-07-08] MEDS: MONTELUKAST SODIUM 10 MG TAB PO SCH (21:35)
[2017-07-08] MEDS: PANTOPRAZOLE SOD 40 MG DELAYED RELEASE TAB PO SCH (21:35)
[2017-07-08] MEDS: ATORVASTATIN 20 MG TAB PO SCH (21:36)
[2017-07-08] MEDS: FLUTICASONE PROPIONATE 50 MCG/ACT 16 GM NASAL SPRAY NASAL SCH (21:50)
[2017-07-09] VITALS (10 sets, daily range): BP systolic 135–163; BP diastolic 82–93; PULSE 78–107; RESP 18–22; TEMP 97.4–98.7; O2SAT 96–98
[2017-07-09] MEDS: RESP: ALBUTEROL 2.5 MG/3 ML NEB (SCH) INH ×8 (01:45→23:38)
[2017-07-09] MEDS: RESP: ALBUTEROL 2.5 MG/IPRATROPIUM 0.5 MG NEB (SCH) INH ×4 (04:00→22:00)
[2017-07-09] MEDS: AZITHROMYCIN 250 MG TAB PO SCH (04:26)
[2017-07-09] MEDS: methylPREDNISolone SOD SUCC 125 MG/2 ML VIAL IV PUSH SCH ×4 (04:28→21:48)
[2017-07-09] MEDS: SODIUM CHLORIDE 0.9% FLUSH 10 ML FLUSH IV FLUSH SCH ×2 (07:36→21:48)
[2017-07-09] MEDS: TAMSULOSIN HCL 0.4 MG CAP PO SCH ×2 (07:38→08:24)
[2017-07-09 08:13] LABS: AUTOMATED NEUTROPHIL # 11.5 TH/MM3 (1.8-7.7); BASOPHIL % 0.1 % (0.0-2.0); HEMATOCRIT 39.9 % (39.0-51.0); HEMOGLOBIN 13.1 GM/DL (13.0-17.0); LYMPH % 4.4 % (9.0-44.0); LYMPHOCYTE # 0.6 TH/MM3 (1.0-4.8); MEAN CORPUSCULAR HEMOGLOBIN 28.3 PG (27.0-34.0); MEAN CORPUSCULAR HGB CONC 32.9 % (32.0-36.0); MEAN PLATELET VOLUME 7.4 FL (7.0-11.0); MONO % 3.6 % (0.0-8.0); MONOCYTE # 0.5 TH/MM3 (0-0.9); NEUT % 91.9 % (16.0-70.0); PLATELET COUNT 166 TH/MM3 (150-450); RED BLOOD COUNT 4.64 MIL/MM3 (4.50-5.90); RED CELL DISTRIBUTION WIDTH 18.4 % (11.6-17.2); WHITE BLOOD COUNT 12.5 TH/MM3 (4.0-11.0)
[2017-07-09] MEDS: DILTIAZEM-CD 180 MG CAP ER PO SCH (08:23)
[2017-07-09] MEDS: INSULIN ASPART SUPPLEMENTAL SCALE SQ SCH ×4 (08:23→21:49)
[2017-07-09] MEDS: APIXABAN 5 MG TABLET PO SCH ×2 (08:24→21:47)
[2017-07-09] MEDS: LORazepam 0.5 MG TAB PO SCH ×2 (08:24→21:47)
[2017-07-09] MEDS: CHLORPHENIR/HYDROCOD LIQUID 8 MG/10 MG/5 ML CUP PO SCH ×2 (08:24→21:47)
[2017-07-09] MEDS: FUROSEMIDE 40 MG/4 ML VIAL IV PUSH SCH (08:24)
[2017-07-09] MEDS: FLUTICASONE PROPIONATE 50 MCG/ACT 16 GM NASAL SPRAY NASAL SCH ×2 (08:25→21:49)
[2017-07-09] MEDS: BUDESONIDE-FORMOTEROL 160/4.5 MCG INHALER INH SCH ×2 (08:25→21:49)
[2017-07-09 09:02] LABS: ALBUMIN 3.3 GM/DL (3.4-5.0); ALKALINE PHOSPHATASE 100 U/L (45-117); ALT (GPT) 94 U/L (12-78); AST (GOT) 39 U/L (15-37); BICARBONATE 23.3 MEQ/L (21.0-32.0); BLOOD UREA NITROGEN 14 MG/DL (7-18); CALCIUM 8.7 MG/DL (8.5-10.1); CHLORIDE 98 MEQ/L (98-107); CREATININE 0.96 MG/DL (0.60-1.30); GLOMERULAR FILTRATION RATE 82 ML/MIN (>89); GLUCOSE,RANDOM 276 MG/DL (74-106); SODIUM (NA) 133 MEQ/L (136-145); TOTAL BILIRUBIN ADULT 0.5 MG/DL (0.2-1.0); TOTAL PROTEIN 6.1 GM/DL (6.4-8.2)
[2017-07-09 09:03] LABS: BANDS 16 % (0-6); LYMPHOCYTES 6 % (9-44); METAMYELOCYTES 1 % (0-1); MONOCYTES 5 % (0-8); MYELOCYTES 1 % (0-0); NEUTROPHIL # MANUAL DIFF 11.1 TH/MM3 (1.8-7.7); POLYS (SEG NEUTROPHILS) 71 % (16-70)
[2017-07-09 09:04] LABS: OVALOCYTES 1+ (NORMAL)
--- NOTE | 2017-07-09 09:28 | MH ---
cc: MYRON BAGLEY MD DATE OF ADMISSION 07/08/2017 CHIEF COMPLAINT Shortness of breath. Wheezing. HISTORY OF THE PRESENT ILLNESS This is a [id number] very pleasant male with a past medical history including severe asthma, history of diabetes mellitus, DVT, pulmonary embolism, arthritis, asthma, anxiety disorder, tachycardia, history of pneumonia in the past, hypertension, hyperlipidemia, depression and history of arthritis, history of right hip surgery, DVT and thrombosis of the right leg in December of 2015, had pneumonia multiple times, had multiple hospitalizations and also has history of intubation and on the ventilator in the past. He had tonsillectomy and adenoidectomy, appendectomy. He also had bilateral hip replacement. He came to my office and has been seeing me almost every day for shortness of breath for which he is getting Rocephin injection one gram IM daily and he is also getting breathing treatment with albuterol nebulization. Also started on Levaquin. His shortness of breath got worse to the extent that he decided to come to [facility] the [facility] in the emergency room. He also has some oral thrush and he also got multiple antibiotics. He denied any history of congestive heart failure. He sees cardiology, Dr. Moody. He denies any history of smoking in the past but he has a pulmonary embolism and DVT for which he was on Coumadin initially and then on Xarelto which causes a lot of bleeding and eventually he is on Eliquis twice a day. Other than that when I examine the patient he is very short of breath and he is also wheezing a lot and he said he was unable to stay at home because of his getting worse and he decided to come to the emergency room at [place]. Other than that nothing significant. PAST MEDICAL AND SURGICAL HISTORY As dictated above. SOCIAL HISTORY He drinks but does not smoke or abuse any drugs. Lives at home with his . He is . ALLERGIES DOXYCYCLINE, MINOCYCLINE, TIGECYCLINE, MEPERIDINE. MEDICATIONS Include: 1. Proventil HFA two puffs inhalation q.4-6h. 2. Potassium chloride 20 mEq twice a day. 3. Flomax 0.4 milligrams p.o. daily. 4. Metformin 500 milligrams twice a day. 5. Ferrous sulfate 325 milligrams twice a day. 6. Furosemide 40 milligrams daily. 7. Eliquis 5 milligrams twice a day. 8. Ativan 0.5 milligrams p.o. twice a day. 9. Diltiazem 260 milligrams p.o. daily. 10. DuoNeb nebulization four times daily. 11. Symbicort inhaler one puff inhaled q.12h. 12. Singulair 10 milligrams p.o. daily. 13. Lipitor 20 milligrams p.o. daily. REVIEW OF SYSTEMS Positive for cough, shortness of breath and wheezing and feeling tired. All other review of symptoms are negative. PHYSICAL EXAMINATION GENERAL: This is a 62-year-old male lying in bed. Has shortness of breath but not in acute distress. VITAL SIGNS: Temperature is 98.1, heart rate 88, respiratory rate 20, blood pressure 142/88. Oxygen saturation 97% on 2 liters nasal cannula. HEENT: Normocephalic, atraumatic. Extraocular muscles intact. Pupils equal, round and reactive to light. Oral mucosa is moist. Has some oral thrush in the oral mucosa. NECK: Supple. No visible thyromegaly or neck mass. Trachea is midline. CARDIOVASCULAR: Regular rhythm, tachycardic. LUNGS: Bilateral severe wheezing. Bilateral decreased air entry. ABDOMEN: Soft. Nontender. Bowel sounds audible. EXTREMITIES: No cyanosis. No clubbing. Full range of motion of all extremities. NEUROLOGIC: Awake, alert, oriented times four. No focal deficits. SKIN: Warm and dry. PSYCHIATRIC: The patient is cooperative. Mood and affect are normal. LABORATORY DATA Labs include CBC is totally unremarkable. Basic metabolic profile totally unremarkable except for GFR 81, low. Glucose 151, high. Lactic acid level was 2.3, now it is 4.9. AST 40 high. ALT 94 high. Alkaline phosphatase 124 high. CPK 6.7 high. Troponin I less than 0.02. BNP less than 2. Total protein 7.0. Albumin 3.5. PT 10.2, INR 0.9, APTT 23.5. Blood cultures times two done and negative so far. IMAGING A chest x-ray done shows bilateral interstitial infiltrate. ASSESSMENT AND PLAN 1. This is a 52-year-old male who came to the emergency room diagnosed with shortness of breath, cough, wheezing most likely secondary to COPD exacerbation. The patient is on Zithromax 500 milligrams IV q.24h and Levaquin IV. The patient also on Solu-Medrol 60 milligrams IV q.6h. The patient also on DuoNeb nebulization every three hours. Pulmonary consulted. Dr. Hernandez agreed with the plan. 2. Bilateral interstitial infiltrate possible atypical pneumonia. The patient on Zithromax 50 milligrams daily and checking Legionella and pneumococcal antigen. and also Influenza A & B testing. 3. History of pulmonary embolism and deep venous thrombosis. The patient is on Eliquis 5 milligrams twice a day. 4. History of leg edema. Continue with furosemide 40 milligrams p.o. daily. 5. History of BPH. Continue Flomax 0.4 milligrams p.o. daily. 6. History of hyperlipidemia. Continue Lipitor 20 milligrams p.o. daily. 7. History of asthma. Continue home medications including Symbicort. 8. History of anxiety. Continue with Ativan 0.5 milligrams twice a day. 9. Lactic acidosis. Rule out sepsis. We will monitor. 10. High liver function tests. The patient had high LFTs in the past. Had a GI workup done in the past. We will monitor. 11. Deep venous thrombosis prophylaxis with Eliquis 5 milligrams twice a day. 12. GI prophylaxis with Protonix 40 milligrams p.o. daily. 13. We are going to manage the patient on a daily basis and make recommendations on a daily basis. Myron Bagley MD EA/DEREK /5:55 PM /8:56 AM PAUL
[2017-07-09] MEDS: LEVOFLOXACIN 750 MG PREMIX INJ 150 ML IV SCH (13:28)
--- NOTE | 2017-07-09 14:13 | HHI.PR ---
Subjective Remarks ALERT UP IN CHIR LESS SOB Objective Vital Signs Date Time Temp Pulse Resp B/P (MAP) Pulse Ox O2 Delivery O2 Flow Rate FiO2 07/09/17 12:00 97.5 95 20 135/90 (105) 97 07/09/17 09:48 Nasal Cannula 2.00 21 07/09/17 08:21 98 Nasal Cannula 2.00 07/09/17 08:00 97.6 78 22 163/93 (116) 96 Manual Cuff/Palpation Automatic Cuff 07/09/17 04:00 98.7 83 18 150/82 (104) 97 07/09/17 00:00 97.5 81 18 154/88 (110) 97 07/08/17 23:44 95 Nasal Cannula 2.00 07/08/17 21:52 152/76 (101) 07/08/17 21:35 Nasal Cannula 2.00 07/08/17 20:19 90 07/08/17 20:19 97 Nasal Cannula 2.00 07/08/17 20:00 98.3 87 18 173/93 (119) 96 07/08/17 18:50 Nasal Cannula 2.00 21 07/08/17 18:48 Nasal Cannula 2.00 21 07/08/17 16:00 98.1 88 20 142/88 (106) 97 I/O 07/08/17 07/08/17 07/08/17 07/09/17 07/09/17 07/09/17 07:00 15:00 23:00 07:00 15:00 23:00 Intake Total 200 ml 1680 ml 800 ml Output Total 575 ml 2800 ml Balance 200 ml 1105 ml -2000 ml Intake Oral 1680 ml 800 ml IV Total 200 ml Output Urine Total 575 ml 2800 ml # Bowel Movements 3 1 Result Diagram: 07/09/1771407/09/1715 Objective Remarks GENERAL: SKIN: Warm and dry. HEAD: Atraumatic. Normocephalic. EYES: Pupils equal and round. No scleral icterus. No injection or drainage. ENT: No nasal bleeding or discharge. Mucous membranes pink and moist. NECK: Trachea midline. No JVD. CARDIOVASCULAR: Regular rate and rhythm. RESPIRATORY: No accessory muscle use. bilateral wheezing , equal bilaterally. GASTROINTESTINAL: Abdomen soft, non-tender, nondistended. Hepatic and splenic margins not palpable. MUSCULOSKELETAL: Extremities without clubbing, cyanosis, or edema. No obvious deformities. NEUROLOGICAL: Awake and alert. No obvious cranial nerve deficits. Motor grossly within normal limits. Five out of 5 muscle strength in the arms and legs. Normal speech. PSYCHIATRIC: Appropriate mood and affect; insight and judgment normal. Assessment and Plan Assessment and Plan ASTHMA EXACERBATION PE/DVT PLAN O2 NEEDED ANTIBIOTICS BRONCHODILATORS CTA R/O RECURRENT PE Mary Hernandez MD Jul 09, 2017 14:13
[2017-07-09] MEDS ORDERED: IOHEXOL 350 MG/ML 10 ML VIAL (for RAD DIAG) IVCONTRAST ONE (15:19)
--- NOTE | 2017-07-09 15:47 | RADRPT ---
EXAM DATE/TIME: 07/09/2017 15:19 [place] COMPARISON: CT PULMONARY ANGIOGRAM, January 18, 2017, 8:59. INDICATIONS : Short of breath with chest pains. IV CONTRAST: 74 cc Omnipaque 350 (iohexol) IV RADIATION DOSE: 23.17 CTDIvol (mGy) MEDICAL HISTORY : Hypertension. Cardiovascular disease Deep venous thrombosis.Diabetes. SURGICAL HISTORY : None. ENCOUNTER: Initial ACUITY: 1 day PAIN SCALE: 7/10 LOCATION: Bilateral chest TECHNIQUE: Volumetric scanning of the chest was performed using a pulmonary embolism protocol MIP images were re constructed. Using automated exposure control and adjustment of the mA and/or kV according to patien t size, radiation dose was kept as low as reasonably achievable to obtain optimal diagnostic quality images. DICOM format image data is available electronically for review and comparison. Follow-up recommendations for detected pulmonary nodules are based at a minimum on nodule size and pa tient risk factors according to Fleischner Society Guidelines. FINDINGS: PULMONARY ARTERIES: No filling defects are seen in the pulmonary arteries through the segmental level. LUNGS: There is no consolidation or pneumothorax . No concerning pulmonary nodule is visualized. PLEURAE: There is no pleural thickening or pleural effusion. MEDIASTINUM: There is good visualization of the great vessels of the middle mediastinum. No evidence of mediastin al or hilar adenopathy/mass. Coronary artery calcifications are noted. MUSCULOSKELETAL: Mild degenerative changes and scoliosis of the thoracic spine are noted. MISCELLANEOUS: The visualized upper abdominal organs demonstrate no acute abnormality. CONCLUSION: 1. No evidence of acute pulmonary embolism. 2. Coronary artery calcifications are noted. 3. Mild degenerative changes and scoliosis of the thoracic spine. Samuel King MD on July 09, 2017 at 15:38 Board Certified Radiologist. This report was verified electronically.
--- NOTE | 2017-07-09 16:53 | HHI.PR ---
Subjective History of Present Illness Patient very Short of breath have wheezing and cough getting CT Scan of chest.on Antibiotic per ID Pulmonary and ID input noted. d/w at bed side d /w RN on duty. Review of Systems Constitutional Constitutional: Fatigue Pulmonary Respiratory: Coughing, Shortness of Breath, Wheezing Vitals/Results Vital Signs Vital Signs Date Time Temp Pulse Resp B/P (MAP) Pulse Ox O2 Delivery O2 Flow Rate FiO2 07/09/17 12:00 97.5 95 20 135/90 (105) 97 07/09/17 09:48 Nasal Cannula 2.00 21 07/09/17 08:21 98 Nasal Cannula 2.00 07/09/17 08:00 97.6 78 22 163/93 (116) 96 Manual Cuff/Palpation Automatic Cuff 07/09/17 04:00 98.7 83 18 150/82 (104) 97 07/09/17 00:00 97.5 81 18 154/88 (110) 97 07/08/17 23:44 95 Nasal Cannula 2.00 07/08/17 21:52 152/76 (101) 07/08/17 21:35 Nasal Cannula 2.00 07/08/17 20:19 90 07/08/17 20:19 97 Nasal Cannula 2.00 07/08/17 20:00 98.3 87 18 173/93 (119) 96 07/08/17 18:50 Nasal Cannula 2.00 21 07/08/17 18:48 Nasal Cannula 2.00 21 CBC/BMP: 07/09/17 0715 07/09/17 0715 Lab Results Laboratory Tests Test 07/09/17 07:15 White Blood Count 12.5 TH/MM3 Red Blood Count 4.64 MIL/MM3 Hemoglobin 13.1 GM/DL Hematocrit 39.9 % Mean Corpuscular Volume 86.0 FL Mean Corpuscular Hemoglobin 28.3 PG Mean Corpuscular Hemoglobin Concent 32.9 % Red Cell Distribution Width 18.4 % Platelet Count 166 TH/MM3 Mean Platelet Volume 7.4 FL Neutrophils (%) (Auto) 91.9 % Lymphocytes (%) (Auto) 4.4 % Monocytes (%) (Auto) 3.6 % Eosinophils (%) (Auto) 0.0 % Basophils (%) (Auto) 0.1 % Neutrophils # (Auto) 11.5 TH/MM3 Lymphocytes # (Auto) 0.6 TH/MM3 Monocytes # (Auto) 0.5 TH/MM3 Eosinophils # (Auto) 0.0 TH/MM3 Basophils # (Auto) 0.0 TH/MM3 CBC Comment AUTO DIFF Differential Total Cells Counted 100 Neutrophils % (Manual) 71 % Band Neutrophils % 16 % Lymphocytes % 6 % Monocytes % 5 % Neutrophils # (Manual) 11.1 TH/MM3 Metamyelocytes 1 % Myelocytes 1 % Differential Comment FINAL DIFF MANUAL Platelet Estimate NORMAL Platelet Morphology Comment NORMAL Ovalocytes 1+ Blood Urea Nitrogen 14 MG/DL Creatinine 0.96 MG/DL Random Glucose 276 MG/DL Total Protein 6.1 GM/DL Albumin 3.3 GM/DL Calcium Level 8.7 MG/DL Alkaline Phosphatase 100 U/L Aspartate Amino Transf (AST/SGOT) 39 U/L Alanine Aminotransferase (ALT/SGPT) 94 U/L Total Bilirubin 0.5 MG/DL Sodium Level 133 MEQ/L Potassium Level 4.0 MEQ/L Chloride Level 98 MEQ/L Carbon Dioxide Level 23.3 MEQ/L Anion Gap 12 MEQ/L Estimat Glomerular Filtration Rate 82 ML/MIN Physical Exam General General Appearance: Well Developed, Well Nourished Eyes Eye Exam: Sclera White, Extraocular Movement Intact Ears & Nose Ears & Nose Exam: Nasal Mucosa [place] Throat Throat Exam: Oral Mucosa [place] & Moist Throat Remarks Oral Thrush. Neck Neck Exam: Neck Supple, Trachea Midline Pulmonary Resp Remarks Bilateral wheezing. Cardiology CV Exam: Regular, Tachycardia Gastrointestinal/Abdomen GI Exam: Soft, Non-Tender, Bowel Sounds Present, Distended Musculoskeletal MS Exam: Joints Intact Integumentary Skin Exam: Clear, Warm, Dry Extremeties Extremities Exam: Trace Edema, Pitting Edema Neurologic Neuro Exam: Alert, Awake, Oriented, Speech Clear, Moving All Extremities, No Focal Deficits VTE Prophylaxis VTE Remarks Eliquis. PUD Prophylasis PUD Prophylaxis: Protonix Assessment/Plan Assessment/Plan ASSESSMENT AND PLAN 1. This is a 52-year-old male who came to the emergency room diagnosed with shortness of breath, cough, wheezing most likely secondary to COPD exacerbation. The patient is on Zithromax 500 milligrams IV q.24h and Levaquin IV. The patient also on Solu-Medrol 60 milligrams IV q.6h. The patient also on DuoNeb nebulization every three hours. Pulmonary input noted. getting CT Scan of chest. 2. Bilateral interstitial infiltrate possible atypical pneumonia. The patient on Zithromax 50 milligrams daily and checking Legionella and pneumococcal antigen. and also Influenza A & B testing.Infectious disease input noted. 3. History of pulmonary embolism and deep venous thrombosis. The patient is on Eliquis 5 milligrams twice a day. 4. History of leg edema. Continue with furosemide 40 milligrams p.o. daily. 5. History of BPH. Continue Flomax 0.4 milligrams p.o. daily. 6. History of hyperlipidemia. Continue Lipitor 20 milligrams p.o. daily. 7. History of asthma. Continue home medications including Symbicort. 8. History of anxiety. Continue with Ativan 0.5 milligrams twice a day. 9. Lactic acidosis. Rule out sepsis. We will monitor. 10. High liver function tests. The patient had high LFTs in the past. Had a GI workup done in the past. We will monitor. 11. Deep venous thrombosis prophylaxis with Eliquis 5 milligrams twice a day. 12. GI prophylaxis with Protonix 40 milligrams p.o. daily. 13. We are going to manage the patient on a daily basis and make recommendations on a daily basis. Discussed Condition with: Patient Myron Woodward MD Jul 09, 2017 16:53
[2017-07-09] MEDS: MONTELUKAST SODIUM 10 MG TAB PO SCH (21:47)
[2017-07-09] MEDS: ATORVASTATIN 20 MG TAB PO SCH (21:47)
[2017-07-09] MEDS: PANTOPRAZOLE SOD 40 MG DELAYED RELEASE TAB PO SCH (21:47)
[2017-07-10] VITALS (10 sets, daily range): BP systolic 134–163; BP diastolic 61–99; PULSE 80–114; RESP 18–19; TEMP 97.4–98; O2SAT 95–98
[2017-07-10] MEDS: RESP: ALBUTEROL 2.5 MG/3 ML NEB (SCH) INH ×9 (01:44→23:03)
[2017-07-10] MEDS: RESP: ALBUTEROL 2.5 MG/IPRATROPIUM 0.5 MG NEB (SCH) INH ×4 (04:00→20:46)
[2017-07-10] MEDS: AZITHROMYCIN 250 MG TAB PO SCH (04:45)
[2017-07-10] MEDS: methylPREDNISolone SOD SUCC 125 MG/2 ML VIAL IV PUSH SCH ×4 (04:46→21:21)
[2017-07-10] MEDS: SODIUM CHLORIDE 0.9% FLUSH 10 ML FLUSH IV FLUSH PRN (04:46)
[2017-07-10] MEDS: INSULIN ASPART SUPPLEMENTAL SCALE SQ SCH ×4 (08:31→21:29)
[2017-07-10] MEDS: CHLORPHENIR/HYDROCOD LIQUID 8 MG/10 MG/5 ML CUP PO SCH ×2 (08:32→21:21)
[2017-07-10] MEDS: TAMSULOSIN HCL 0.4 MG CAP PO SCH (08:32)
[2017-07-10] MEDS: APIXABAN 5 MG TABLET PO SCH ×2 (08:32→21:22)
[2017-07-10] MEDS: FUROSEMIDE 40 MG/4 ML VIAL IV PUSH SCH (08:32)
[2017-07-10] MEDS: DILTIAZEM-CD 180 MG CAP ER PO SCH (08:32)
[2017-07-10] MEDS: LORazepam 0.5 MG TAB PO SCH ×2 (08:32→21:22)
[2017-07-10] MEDS: FLUTICASONE PROPIONATE 50 MCG/ACT 16 GM NASAL SPRAY NASAL SCH ×2 (08:33→21:29)
[2017-07-10] MEDS: BUDESONIDE-FORMOTEROL 160/4.5 MCG INHALER INH SCH ×2 (08:33→21:29)
[2017-07-10] MEDS: SODIUM CHLORIDE 0.9% FLUSH 10 ML FLUSH IV FLUSH SCH ×2 (08:33→21:30)
--- NOTE | 2017-07-10 08:52 | HHI.PR ---
Subjective Remarks ALERT UP IN CHAIR LESS SOB Objective Vital Signs Date Time Temp Pulse Resp B/P (MAP) Pulse Ox O2 Delivery O2 Flow Rate FiO2 07/10/17 08:13 95 Nasal Cannula 07/10/17 04:00 Nasal Cannula 2.00 07/10/17 03:55 97.6 80 18 162/99 (120) 97 07/10/17 00:00 Nasal Cannula 2.00 07/09/17 23:13 97.4 82 18 148/86 (106) 96 07/09/17 20:03 97 Nasal Cannula 2.00 07/09/17 20:00 Nasal Cannula 2.00 07/09/17 19:35 97.9 107 20 145/87 (106) 97 07/09/17 16:57 97 Nasal Cannula 2.00 07/09/17 16:00 97.6 95 20 160/86 (110) 97 07/09/17 12:00 97.5 95 20 135/90 (105) 97 07/09/17 09:48 Nasal Cannula 2.00 21 I/O 07/09/17 07/09/17 07/09/17 07/10/17 07/10/17 07/10/17 06:59 14:59 22:59 06:59 14:59 22:59 Intake Total 800 ml 1080 ml 1440 ml Output Total 2800 ml 3150 ml 1825 ml Balance -2000 ml -2070 ml -385 ml Intake Oral 800 ml 1080 ml 1440 ml Output Urine Total 2800 ml 3150 ml 1825 ml # Bowel Movements 1 1 1 Result Diagram: 07/09/1715 07/09/17 0715 Objective Remarks GENERAL: SKIN: Warm and dry. HEAD: Atraumatic. Normocephalic. EYES: Pupils equal and round. No scleral icterus. No injection or drainage. ENT: No nasal bleeding or discharge. Mucous membranes pink and moist. NECK: Trachea midline. No JVD. CARDIOVASCULAR: Regular rate and rhythm. RESPIRATORY: No accessory muscle use. bilateral wheezing , equal bilaterally. GASTROINTESTINAL: Abdomen soft, non-tender, nondistended. Hepatic and splenic margins not palpable. MUSCULOSKELETAL: Extremities without clubbing, cyanosis, or edema. No obvious deformities. NEUROLOGICAL: Awake and alert. No obvious cranial nerve deficits. Motor grossly within normal limits. Five out of 5 muscle strength in the arms and legs. Normal speech. PSYCHIATRIC: Appropriate mood and affect; insight and judgment normal. Assessment and Plan Assessment and Plan ASTHMA EXACERBATION PE/DVT CTA NO PE PLAN O2 NEEDED ANTIBIOTICS BRONCHODILATORS Mary Hernandez MD Jul 10, 2017 08:52
[2017-07-10] MEDS: NYSTATIN SUSP 500,000 U/5 ML CUP SWISH-SWAL SCH ×3 (12:21→21:21)
[2017-07-10] MEDS: LEVOFLOXACIN 750 MG PREMIX INJ 150 ML IV SCH (12:21)
--- NOTE | 2017-07-10 13:34 | HHI.IDPN ---
Subjective Subjective Remarks Patient is a 52-year-old male, with history of asthma, admitted to the hospital for 3 day history of worsening shortness of breath. Patient stated that he's been having problem with shortness of breath over the last several weeks. He has been seeing his primary care doctor and the patient stated that he was getting IM steroids, as well as an IM antibiotics. About a week prior to admission patient was switched to a Medrol Dosepak, and when he was down to 10 mg, his breathing started getting worse again. Patient also was switched to Levaquin by mouth which started yesterday. He has some occasional coughing which has gotten worse over the last 3 days. He doesn't really bring up a lot of sputum. He also has been having episodes of feeling warm and chills but didn 't when he takes his temperature it it is usually normal. This has been going on over the last 5 days. Because of the shortness of breath, patient presented to the hospital, and has been admitted. Since admission he has not had any fever. His WBC is normal. Chest x-ray showing bilateral interstitial infiltrates. He denies any nausea or vomiting. Denies any ear pain. Has not had any diarrhea or urinary complaints. His also has been having some respiratory infection and was just given an antibiotic by her own primary care physician. Infectious disease consultation has been requested to assist with evaluation and treatment. Notes reviewed Afebriel Breathing is better Repeat CXR clear Antibiotics I attest that I obtained, updated or reviewed the home and current medications. Levaquin IV Zithromax Current Medications Medications (Trade) Dose Ordered Sig/Gabi Route Start Time Stop Time Status Last Admin (NS Flush) 2 ml UNSCH PRN IV FLUSH 07/08/17 05:15 07/10/17 04:46 (NS Flush) 2 ml BID IV FLUSH 07/08/17 09:00 07/10/17 08:33 (Zofran Inj) 4 mg Q6H PRN IVP 07/08/17 05:15 (Narcan Inj) 0.4 mg UNSCH PRN IV PUSH 07/08/17 05:15 (Milk Of Magnesia Liq) 30 ml Q12H PRN PO 07/08/17 05:15 (Senokot) 17.2 mg Q12H PRN PO 07/08/17 05:15 (Dulcolax Supp) 10 mg DAILY PRN RECTAL 07/08/17 05:15 (Lactulose Liq) 30 ml DAILY PRN PO 07/08/17 05:15 (Duoneb Neb) 1 ampule Q6HR NEB INH 07/08/17 10:00 07/08/17 09:11 (Albuterol Neb) 2.5 mg Q2HR NEB PRN INH 07/08/17 05:30 (SoluMEDROL INJ) 60 mg Q6H IV PUSH 07/08/17 10:00 07/10/17 08:32 (Zithromax) 500 mg Q24H PO 07/09/17 05:30 07/12/17 05:29 07/10/17 04:45 (Eliquis) 5 mg BID PO 07/08/17 09:00 07/10/17 08:32 (Lipitor) 20 mg HS PO 07/08/17 21:00 07/09/17 21:47 (Symbicort 160-4.5 Inh) 2 puff Q12HR INH 07/08/17 09:00 07/10/17 08:33 (Cardizem Cd) 360 mg DAILY PO 07/08/17 09:00 07/10/17 08:32 (Ativan) 0.5 mg BID PO 07/08/17 09:00 07/10/17 08:32 (Singulair) 10 mg HS PO 07/08/17 21:00 07/09/17 21:47 (Protonix) 40 mg HS PO 07/08/17 21:00 07/09/17 21:47 (NovoLOG SUPPLEMENTAL SCALE) 1 ACHS SLIDING SCALE SQ 07/08/17 08:00 07/10/17 12:22 Levofloxacin/ Dextrose 150 ml @ 100 mls/hr Q24H IV 07/08/17 14:00 07/10/17 12:21 (Albuterol Neb) 2.5 mg Q3HR NEB INH 07/08/17 14:00 07/10/17 11:06 (Lasix Inj) 40 mg DAILY IV PUSH 07/09/17 09:00 07/10/17 08:32 (Flomax) 0.4 mg DAILY PO 07/09/17 09:00 07/10/17 08:32 (Flonase [place] Spr) 1 spray BID NASAL 07/08/17 21:00 07/10/17 08:33 (Tussionex Liq) 5 ml Q12HR PO 07/08/17 21:00 07/10/17 08:32 (Mycostatin Liq) 5 ml QID SWISH-SWAL 07/10/17 13:00 07/10/17 12:21 Lines PIV Past Medical History PE DVT RLE Asthma, has recurrent exacerbation Hyperlipidemia Past Surgical History Bilateral hip surgery Allergies: Coded Allergies: doxycycline (Unverified Allergy, Severe, throat swells, 04/22/17) minocycline (Unverified Allergy, Severe, throat swells, 04/22/17) tigecycline (Unverified Allergy, Severe, throat swells, 04/22/17) meperidine (Unverified Allergy, Intermediate, hallucinations, 04/22/17) Objective . Vital Signs Date Time Temp Pulse Resp B/P (MAP) Pulse Ox O2 Delivery O2 Flow Rate FiO2 07/10/17 12:01 97.4 101 19 163/91 (115) 97 07/10/17 08:13 95 Nasal Cannula 07/10/17 08:01 98.0 96 19 158/90 (112) 96 07/10/17 04:00 Nasal Cannula 2.00 07/10/17 03:55 97.6 80 18 162/99 (120) 97 07/10/17 00:00 Nasal Cannula 2.00 07/09/17 23:13 97.4 82 18 148/86 (106) 96 07/09/17 20:03 97 Nasal Cannula 2.00 07/09/17 20:00 Nasal Cannula 2.00 07/09/17 19:35 97.9 107 20 145/87 (106) 97 07/09/17 16:57 97 Nasal Cannula 2.00 07/09/17 16:00 97.6 95 20 160/86 (110) 97 . Laboratory Tests Test 07/09/17 07:15 White Blood Count 12.5 TH/MM3 Red Blood Count 4.64 MIL/MM3 Hemoglobin 13.1 GM/DL Hematocrit 39.9 % Mean Corpuscular Volume 86.0 FL Mean Corpuscular Hemoglobin 28.3 PG Mean Corpuscular Hemoglobin Concent 32.9 % Red Cell Distribution Width 18.4 % Platelet Count 166 TH/MM3 Mean Platelet Volume 7.4 FL Neutrophils (%) (Auto) 91.9 % Lymphocytes (%) (Auto) 4.4 % Monocytes (%) (Auto) 3.6 % Eosinophils (%) (Auto) 0.0 % Basophils (%) (Auto) 0.1 % Neutrophils # (Auto) 11.5 TH/MM3 Lymphocytes # (Auto) 0.6 TH/MM3 Monocytes # (Auto) 0.5 TH/MM3 Eosinophils # (Auto) 0.0 TH/MM3 Basophils # (Auto) 0.0 TH/MM3 CBC Comment AUTO DIFF Differential Total Cells Counted 100 Neutrophils % (Manual) 71 % Band Neutrophils % 16 % Lymphocytes % 6 % Monocytes % 5 % Neutrophils # (Manual) 11.1 TH/MM3 Metamyelocytes 1 % Myelocytes 1 % Differential Comment FINAL DIFF MANUAL Platelet Estimate NORMAL Platelet Morphology Comment NORMAL Ovalocytes 1+ Laboratory Tests Test 07/09/17 07:15 07/10/17 13:05 Blood Urea Nitrogen 14 MG/DL Creatinine 0.96 MG/DL Random Glucose 276 MG/DL Total Protein 6.1 GM/DL Albumin 3.3 GM/DL Calcium Level 8.7 MG/DL Alkaline Phosphatase 100 U/L Aspartate Amino Transf (AST/SGOT) 39 U/L Alanine Aminotransferase (ALT/SGPT) 94 U/L Total Bilirubin 0.5 MG/DL Sodium Level 133 MEQ/L Potassium Level 4.0 MEQ/L Chloride Level 98 MEQ/L Carbon Dioxide Level 23.3 MEQ/L Anion Gap 12 MEQ/L Estimat Glomerular Filtration Rate 82 ML/MIN Microbiology Date/Time Source Procedure Growth Status 07/08/17 05:05 Blood Peripheral Aerobic Blood Culture - Preliminary NO GROWTH IN 2 DAYS Resulted 07/08/17 05:05 Blood Peripheral Anaerobic Blood Culture - Preliminary NO GROWTH IN 2 DAYS Resulted 07/08/17 05:00 Blood Peripheral Aerobic Blood Culture - Preliminary NO GROWTH IN 2 DAYS Resulted 07/08/17 05:00 Blood Peripheral Anaerobic Blood Culture - Preliminary NO GROWTH IN 2 DAYS Resulted Imaging RADIOLOGY STUDIES/FILMS REVIEWED CT Angiography 07/09/17 0000 Signed Impressions: Service Date/Time: Sunday, July 09, 2017 15:19 - CONCLUSION: 1. No evidence of acute pulmonary embolism. 2. Coronary artery calcifications are noted. 3. Mild degenerative changes and scoliosis of the thoracic spine. Samuel King MD Chest X-Ray 07/08/17 0313 Signed Impressions: Service Date/Time: Saturday, July 08, 2017 03:26 - CONCLUSION: Bilateral interstitial infiltrates. Adin Guillermo MD Physical Exam GENERAL: awake and alert, not in respiratory distress. SKIN: Warm and dry. No generalized rash, no ecchymoses and no evidence of embolic lesions. HEAD: Atraumatic. Normocephalic. No temporal wasting, or tenderness. EYES: [place] conjunctiva. No petechia or hemorrhage. No scleral icterus. No injection or drainage. EARS, NOSE AND THROAT: Nose without bleeding or purulent nasal discharge. Mucous membranes pink and moist. No oral lesions noted. NECK: Trachea midline. Supple and not tender, no meningeal signs CARDIOVASCULAR: Regular rate and rhythm. No murmurs, rubs or gallops heard RESPIRATORY: Better air movement, no wheezing ABDOMEN: Soft, non-tender, nondistended. Bowel sounds present and normoactive. No guarding. No rebound. No organomegaly. EXTREMITIES: No clubbing, cyanosis, or edema. No calf tenderness. Well perfused and warm. NEUROLOGICAL: Awake and alert. Cranial nerves grossly intact. Motor grossly within normal limits. PSYCHIATRIC: Normal affect, calm and cooperative. LINE: No evidence of infection Assessment & Plan Remarks IMPRESSION Exacerbation of asthma Bilateral interstitial infiltrates, ?viral, ?atypical PNA - CXR now clear Hx PE Hx theo infection R hip, S/P Rx RECOMMENDATION Continue Levaquin, change to po and give 7 days oral Abx Also on steroids - likely why he had rap[id improvement patient is clinically doing well from ID standpoint He can be D/C from ID standpoint I will sign off Please reconsult if with any new ID issue or question Explained plan to the patient Aria Hassan MD Jul 10, 2017 13:34
--- NOTE | 2017-07-10 15:21 | HHI.PR ---
Subjective History of Present Illness Patient very Short of breath have wheezing and cough S/P CT Scan of chest. discussed with patient. on Antibiotic per ID Pulmonary and ID input noted. Review of Systems Constitutional Constitutional: Fatigue Pulmonary Respiratory: Coughing, Shortness of Breath, Wheezing Vitals/Results Vital Signs Vital Signs Date Time Temp Pulse Resp B/P (MAP) Pulse Ox O2 Delivery O2 Flow Rate FiO2 07/10/17 14:37 98 Nasal Cannula 2.00 07/10/17 12:01 97.4 101 19 163/91 (115) 97 07/10/17 08:13 95 Nasal Cannula 07/10/17 08:01 98.0 96 19 158/90 (112) 96 07/10/17 04:00 Nasal Cannula 2.00 07/10/17 03:55 97.6 80 18 162/99 (120) 97 07/10/17 00:00 Nasal Cannula 2.00 07/09/17 23:13 97.4 82 18 148/86 (106) 96 07/09/17 20:03 97 Nasal Cannula 2.00 07/09/17 20:00 Nasal Cannula 2.00 07/09/17 19:35 97.9 107 20 145/87 (106) 97 07/09/17 16:57 97 Nasal Cannula 2.00 07/09/17 16:00 97.6 95 20 160/86 (110) 97 CBC/BMP: 07/09/17 0715 07/09/17 0715 Lab Results Laboratory Tests Test 07/10/17 13:05 Lactic Acid Level 5.6 mmol/L Physical Exam General General Appearance: Well Developed, Well Nourished Eyes Eye Exam: Sclera White, Extraocular Movement Intact Ears & Nose Ears & Nose Exam: Nasal Mucosa [place] Throat Throat Exam: Oral Mucosa [place] & Moist Throat Remarks Oral Thrush. Neck Neck Exam: Neck Supple, Trachea Midline Pulmonary Resp Remarks Bilateral wheezing. Cardiology CV Exam: Regular, Tachycardia Gastrointestinal/Abdomen GI Exam: Soft, Non-Tender, Bowel Sounds Present, Distended Musculoskeletal MS Exam: Joints Intact Integumentary Skin Exam: Clear, Warm, Dry Extremeties Extremities Exam: Trace Edema, Pitting Edema Neurologic Neuro Exam: Alert, Awake, Oriented, Speech Clear, Moving All Extremities, No Focal Deficits VTE Prophylaxis VTE Remarks Eliquis. PUD Prophylasis PUD Prophylaxis: Protonix Assessment/Plan Assessment/Plan ASSESSMENT AND PLAN 1. This is a 52-year-old male who came to the emergency room diagnosed with shortness of breath, cough, wheezing most likely secondary to COPD exacerbation. The patient is on Zithromax 500 milligrams IV q.24h and Levaquin IV. The patient also on Solu-Medrol 60 milligrams IV q.6h. The patient also on DuoNeb nebulization every three hours. Pulmonary input noted. S/P CT Scan of chest. 2. Bilateral interstitial infiltrate possible atypical pneumonia. The patient on Zithromax 50 milligrams daily and checking Legionella and pneumococcal antigen. and also Influenza A & B testing.Infectious disease input noted. 3. History of pulmonary embolism and deep venous thrombosis. The patient is on Eliquis 5 milligrams twice a day. 4. History of leg edema. Continue with furosemide 40 milligrams p.o. daily. 5. History of BPH. Continue Flomax 0.4 milligrams p.o. daily. 6. History of hyperlipidemia. Continue Lipitor 20 milligrams p.o. daily. 7. History of asthma. Continue home medications including Symbicort. 8. History of anxiety. Continue with Ativan 0.5 milligrams twice a day. 9. Lactic acidosis. Rule out sepsis. We will monitor. 10. High liver function tests. The patient had high LFTs in the past. Had a GI workup done in the past. We will monitor. 11. Deep venous thrombosis prophylaxis with Eliquis 5 milligrams twice a day. 12. GI prophylaxis with Protonix 40 milligrams p.o. daily. 13.Oral Thrush on Nystatin. We are going to manage the patient on a daily basis and make recommendations on a daily basis. Discussed Condition with: Patient Myron Woodward MD Jul 10, 2017 15:21
[2017-07-10] MEDS: ATORVASTATIN 20 MG TAB PO SCH (21:21)
[2017-07-10] MEDS: PANTOPRAZOLE SOD 40 MG DELAYED RELEASE TAB PO SCH (21:21)
[2017-07-10] MEDS: MONTELUKAST SODIUM 10 MG TAB PO SCH (21:21)
[2017-07-11] MEDS: RESP: ALBUTEROL 2.5 MG/3 ML NEB (SCH) INH ×4 (02:07→11:50)
[2017-07-11] MEDS: SODIUM CHLORIDE 0.9% FLUSH 10 ML FLUSH IV FLUSH PRN (04:18)
[2017-07-11] MEDS: methylPREDNISolone SOD SUCC 125 MG/2 ML VIAL IV PUSH SCH ×2 (04:18→10:43)
[2017-07-11 04:20] VITALS: BP 170/96; PULSE 101; RESP 18; TEMP 97.4; O2SAT 97
[2017-07-11] MEDS: RESP: ALBUTEROL 2.5 MG/IPRATROPIUM 0.5 MG NEB (SCH) INH ×2 (04:42→10:00)
[2017-07-11 07:53] VITALS: O2SAT 94
[2017-07-11 08:00] VITALS: PULSE 96
[2017-07-11] MEDS: INSULIN ASPART SUPPLEMENTAL SCALE SQ SCH ×2 (08:00→12:00)
[2017-07-11 08:01] VITALS: BP 153/86; PULSE 93; RESP 17; TEMP 98; O2SAT 96
[2017-07-11] MEDS: DILTIAZEM-CD 180 MG CAP ER PO SCH (08:06)
[2017-07-11] MEDS: FUROSEMIDE 40 MG/4 ML VIAL IV PUSH SCH (08:07)
[2017-07-11] MEDS: NYSTATIN SUSP 500,000 U/5 ML CUP SWISH-SWAL SCH ×2 (08:07→12:54)
[2017-07-11] MEDS: TAMSULOSIN HCL 0.4 MG CAP PO SCH (08:07)
[2017-07-11] MEDS: LORazepam 0.5 MG TAB PO SCH (08:07)
[2017-07-11] MEDS: APIXABAN 5 MG TABLET PO SCH (08:07)
[2017-07-11] MEDS: SODIUM CHLORIDE 0.9% FLUSH 10 ML FLUSH IV FLUSH SCH (08:08)
[2017-07-11] MEDS: BUDESONIDE-FORMOTEROL 160/4.5 MCG INHALER INH SCH (08:10)
[2017-07-11] MEDS: FLUTICASONE PROPIONATE 50 MCG/ACT 16 GM NASAL SPRAY NASAL SCH (08:10)
[2017-07-11 08:17] LABS: AUTOMATED NEUTROPHIL # 12.2 TH/MM3 (1.8-7.7); BASOPHIL % 0.1 % (0.0-2.0); HEMATOCRIT 39.8 % (39.0-51.0); HEMOGLOBIN 13.3 GM/DL (13.0-17.0); LYMPHOCYTE # 0.5 TH/MM3 (1.0-4.8); MEAN CELL VOLUME 85.2 FL (80.0-100.0); MEAN CORPUSCULAR HEMOGLOBIN 28.5 PG (27.0-34.0); MEAN CORPUSCULAR HGB CONC 33.5 % (32.0-36.0); MEAN PLATELET VOLUME 7.3 FL (7.0-11.0); MONO % 5.9 % (0.0-8.0); MONOCYTE # 0.8 TH/MM3 (0-0.9); PLATELET COUNT 188 TH/MM3 (150-450); RED BLOOD COUNT 4.67 MIL/MM3 (4.50-5.90); RED CELL DISTRIBUTION WIDTH 17.5 % (11.6-17.2); WHITE BLOOD COUNT 13.5 TH/MM3 (4.0-11.0)
--- NOTE | 2017-07-11 08:17 | HHI.PR ---
Subjective Remarks ALERT UP IN CHAIR NO SOB Objective Vital Signs Date Time Temp Pulse Resp B/P (MAP) Pulse Ox O2 Delivery O2 Flow Rate FiO2 07/11/17 07:53 94 21 07/11/17 04:20 97.4 101 18 170/96 (120) 97 07/11/17 04:00 Nasal Cannula 2.00 07/11/17 00:00 Nasal Cannula 2.00 07/10/17 23:39 Nasal Cannula 2.00 07/10/17 23:30 97.4 100 18 151/80 (103) 96 07/10/17 20:46 96 Nasal Cannula 2.00 07/10/17 20:04 97.5 108 19 134/86 (102) 96 07/10/17 20:00 110 07/10/17 17:39 80 07/10/17 17:39 98 07/10/17 16:01 97.4 114 19 137/61 (86) 96 07/10/17 14:37 98 Nasal Cannula 2.00 07/10/17 12:01 97.4 101 19 163/91 (115) 97 I/O 07/10/17 07/10/17 07/10/17 07/11/17 07/11/17 07/11/17 07:00 15:00 23:00 07:00 15:00 23:00 Intake Total 1440 ml 840 ml 1680 ml Output Total 1825 ml 1200 ml 1925 ml Balance -385 ml -360 ml -245 ml Intake Oral 1440 ml 840 ml 1680 ml Output Urine Total 1825 ml 1200 ml 1925 ml # Voids 1 # Bowel Movements 1 1 1 Result Diagram: 07/09/1771407/09/1715 Objective Remarks GENERAL: SKIN: Warm and dry. HEAD: Atraumatic. Normocephalic. EYES: Pupils equal and round. No scleral icterus. No injection or drainage. ENT: No nasal bleeding or discharge. Mucous membranes pink and moist. NECK: Trachea midline. No JVD. CARDIOVASCULAR: Regular rate and rhythm. RESPIRATORY: No accessory muscle use. bilateral wheezing , equal bilaterally. GASTROINTESTINAL: Abdomen soft, non-tender, nondistended. Hepatic and splenic margins not palpable. MUSCULOSKELETAL: Extremities without clubbing, cyanosis, or edema. No obvious deformities. NEUROLOGICAL: Awake and alert. No obvious cranial nerve deficits. Motor grossly within normal limits. Five out of 5 muscle strength in the arms and legs. Normal speech. PSYCHIATRIC: Appropriate mood and affect; insight and judgment normal. Assessment and Plan Assessment and Plan ASTHMA EXACERBATION PE/DVT CTA NO PE PLAN O2 NEEDED ANTIBIOTICS BRONCHODILATORS OK FOR D/C HOME TODAY OFFICE 1 WEEK Mary Hernandez MD Jul 11, 2017 08:17
[2017-07-11] MEDS: CHLORPHENIR/HYDROCOD LIQUID 8 MG/10 MG/5 ML CUP PO SCH (08:19)
[2017-07-11 08:41] LABS: ALBUMIN 3.1 GM/DL (3.4-5.0); ALT (GPT) 81 U/L (12-78); AST (GOT) 20 U/L (15-37); BICARBONATE 24.7 MEQ/L (21.0-32.0); BLOOD UREA NITROGEN 21 MG/DL (7-18); CALCIUM 8.6 MG/DL (8.5-10.1); CHLORIDE 94 MEQ/L (98-107); CREATININE 1.05 MG/DL (0.60-1.30); GLOMERULAR FILTRATION RATE 74 ML/MIN (>89); GLUCOSE,RANDOM 330 MG/DL (74-106); SODIUM (NA) 131 MEQ/L (136-145)
[2017-07-11 08:42] LABS: ALKALINE PHOSPHATASE 114 U/L (45-117); TOTAL BILIRUBIN ADULT 0.5 MG/DL (0.2-1.0); TOTAL PROTEIN 5.8 GM/DL (6.4-8.2)
[2017-07-11 09:18] LABS: BANDS 17 % (0-6); LYMPHOCYTES 1 % (9-44); METAMYELOCYTES 3 % (0-1); MONOCYTES 6 % (0-8); MYELOCYTES 3 % (0-0); NEUTROPHIL # MANUAL DIFF 12.4 TH/MM3 (1.8-7.7); POLYS (SEG NEUTROPHILS) 69 % (16-70)
--- NOTE | 2017-07-11 09:42 | HHI.PR ---
Subjective History of Present Illness Patient Short of breath much better and wheezing and cough better. S/P CT Scan of chest. discussed with patient. on Antibiotic per ID Pulmonary and ID input noted. ok to discharge per pulmonary and infectious disease. Review of Systems Constitutional Constitutional: Fatigue Pulmonary Respiratory: Coughing, Shortness of Breath, Wheezing Vitals/Results Vital Signs Vital Signs Date Time Temp Pulse Resp B/P (MAP) Pulse Ox O2 Delivery O2 Flow Rate FiO2 07/11/17 08:01 98.0 93 17 153/86 (108) 96 07/11/17 07:53 94 21 07/11/17 04:20 97.4 101 18 170/96 (120) 97 07/11/17 04:00 Nasal Cannula 2.00 07/11/17 00:00 Nasal Cannula 2.00 07/10/17 23:39 Nasal Cannula 2.00 07/10/17 23:30 97.4 100 18 151/80 (103) 96 07/10/17 20:46 96 Nasal Cannula 2.00 07/10/17 20:04 97.5 108 19 134/86 (102) 96 07/10/17 20:00 110 07/10/17 17:39 80 07/10/17 17:39 98 07/10/17 16:01 97.4 114 19 137/61 (86) 96 07/10/17 14:37 98 Nasal Cannula 2.00 07/10/17 12:01 97.4 101 19 163/91 (115) 97 CBC/BMP: 07/11/17 0709 07/11/17 0709 Lab Results Laboratory Tests Test 07/10/17 13:05 07/11/17 07:09 Lactic Acid Level 5.6 mmol/L White Blood Count 13.5 TH/MM3 Red Blood Count 4.67 MIL/MM3 Hemoglobin 13.3 GM/DL Hematocrit 39.8 % Mean Corpuscular Volume 85.2 FL Mean Corpuscular Hemoglobin 28.5 PG Mean Corpuscular Hemoglobin Concent 33.5 % Red Cell Distribution Width 17.5 % Platelet Count 188 TH/MM3 Mean Platelet Volume 7.3 FL Neutrophils (%) (Auto) 90.0 % Lymphocytes (%) (Auto) 4.0 % Monocytes (%) (Auto) 5.9 % Eosinophils (%) (Auto) 0.0 % Basophils (%) (Auto) 0.1 % Neutrophils # (Auto) 12.2 TH/MM3 Lymphocytes # (Auto) 0.5 TH/MM3 Monocytes # (Auto) 0.8 TH/MM3 Eosinophils # (Auto) 0.0 TH/MM3 Basophils # (Auto) 0.0 TH/MM3 CBC Comment AUTO DIFF Differential Total Cells Counted 100 Neutrophils % (Manual) 69 % Band Neutrophils % 17 % Lymphocytes % 1 % Monocytes % 6 % Eosinophils % 1 % Neutrophils # (Manual) 12.4 TH/MM3 Metamyelocytes 3 % Myelocytes 3 % Differential Comment FINAL DIFF MANUAL Platelet Estimate NORMAL Platelet Morphology Comment NORMAL Blood Urea Nitrogen 21 MG/DL Creatinine 1.05 MG/DL Random Glucose 330 MG/DL Total Protein 5.8 GM/DL Albumin 3.1 GM/DL Calcium Level 8.6 MG/DL Alkaline Phosphatase 114 U/L Aspartate Amino Transf (AST/SGOT) 20 U/L Alanine Aminotransferase (ALT/SGPT) 81 U/L Total Bilirubin 0.5 MG/DL Sodium Level 131 MEQ/L Potassium Level 3.8 MEQ/L Chloride Level 94 MEQ/L Carbon Dioxide Level 24.7 MEQ/L Anion Gap 12 MEQ/L Estimat Glomerular Filtration Rate 74 ML/MIN Microbiology Microbiology 07/10/17 Influenza Types A,B Antigen (STEFFANIE) - Final, Complete NEGATIVE FOR FLU A AND B ANTIGEN.... 07/10/17 Legionella Antigen, Received Pending 07/10/17 Streptococcus pneumoniae Antigen (M, Received Pending Physical Exam General General Appearance: Well Developed, Well Nourished Eyes Eye Exam: Sclera White, Extraocular Movement Intact Ears & Nose Ears & Nose Exam: Nasal Mucosa [place] Throat Throat Exam: Oral Mucosa [place] & Moist Throat Remarks Oral Thrush. Neck Neck Exam: Neck Supple, Trachea Midline Pulmonary Resp Remarks Bilateral wheezing. Cardiology CV Exam: Regular, Tachycardia Gastrointestinal/Abdomen GI Exam: Soft, Non-Tender, Bowel Sounds Present, Distended Musculoskeletal MS Exam: Joints Intact Integumentary Skin Exam: Clear, Warm, Dry Extremeties Extremities Exam: Trace Edema, Pitting Edema Neurologic Neuro Exam: Alert, Awake, Oriented, Speech Clear, Moving All Extremities, No Focal Deficits VTE Prophylaxis VTE Remarks Eliquis. PUD Prophylasis PUD Prophylaxis: Protonix Assessment/Plan Assessment/Plan ASSESSMENT AND PLAN 1. This is a 52-year-old male who came to the emergency room diagnosed with shortness of breath, cough, wheezing most likely secondary to COPD exacerbation. The patient is on Zithromax 500 milligrams IV q.24h and Levaquin IV. The patient also on Solu-Medrol 60 milligrams IV q.6h. The patient also on DuoNeb nebulization every three hours. Pulmonary input noted. S/P CT Scan of chest. 2. Bilateral interstitial infiltrate possible atypical pneumonia. The patient on Zithromax 50 milligrams daily and checking Legionella and pneumococcal antigen. and also Influenza A & B testing.Infectious disease input noted. 3. History of pulmonary embolism and deep venous thrombosis. The patient is on Eliquis 5 milligrams twice a day. 4. History of leg edema. Continue with furosemide 40 milligrams p.o. daily. 5. History of BPH. Continue Flomax 0.4 milligrams p.o. daily. 6. History of hyperlipidemia. Continue Lipitor 20 milligrams p.o. daily. 7. History of asthma. Continue home medications including Symbicort. 8. History of anxiety. Continue with Ativan 0.5 milligrams twice a day. 9. Lactic acidosis. Rule out sepsis. We will monitor. 10. High liver function tests. The patient had high LFTs in the past. Had a GI workup done in the past. We will monitor. 11. Deep venous thrombosis prophylaxis with Eliquis 5 milligrams twice a day. 12. GI prophylaxis with Protonix 40 milligrams p.o. daily. 13.Oral Thrush on Nystatin. ok to discharge home today. f/u with PCP/ Pulmonary 1 week. Discussed Condition with: Patient Myron Woodward MD Jul 11, 2017 09:42
[2017-07-11] MEDS ORDERED: LEVOFLOXACIN 750 MG TAB PO SCH (12:00)
[2017-07-11 12:01] VITALS: BP 143/82; PULSE 104; RESP 17; TEMP 97.6; O2SAT 97
== END 2017-07-11 14:39 | disposition home or self-care (01) | DRG 190 ==
LOC: NEPC 03:03 → NEDA 05:17 → N04B 05:53
PROVIDERS: ADMIT Family Medicine; ATTEND Family Medicine
DX: J44.1 Chronic obstructive pulmonary disease with (acute) exacerbation (principal); J44.0 Chronic obstructive pulmonary disease with (acute) lower respiratory infection; J18.8 Other pneumonia, unspecified organism; B37.0 Candidal stomatitis; J45.901 Unspecified asthma with (acute) exacerbation; E11.9 Type 2 diabetes mellitus without complications; Z79.84 Long term (current) use of oral hypoglycemic drugs; I10 Essential (primary) hypertension; Z86.711 Personal history of pulmonary embolism; Z86.718 Personal history of other venous thrombosis and embolism; Z79.02 Long term (current) use of antithrombotics/antiplatelets; Z87.01 Personal history of pneumonia (recurrent); R60.0 Localized edema; F41.9 Anxiety disorder, unspecified; E78.5 Hyperlipidemia, unspecified; F32.9 Major depressive disorder, single episode, unspecified; N40.0 Benign prostatic hyperplasia without lower urinary tract symptoms; Z96.643 Presence of artificial hip joint, bilateral
CPT/HCPCS: 36600; 71010; 71275; 80053; 82550; 82552; 82805; 82948; 83605; 83735; 83880; 84484; 85007; 85027; 85610; 85730; 87040; 87449; 87804; 93005; 94620; 94640; 94664; 96365; 96375; J0456; J0696; J1815; J1940; J1956; J2930; J3475; J7050; J7613; Q9967

== ENCOUNTER 2017-08-08 14:29 | Emergency (ER) | payer BC ==
[~2017-08-08] VITALS: Ht 175.3 cm; Wt 102.0 kg
[~2017-08-08 14:29] MED LIST changes: -CARA1TAB6 PO; -CYCL1TAB29 PO; -HYDR-3516 PO; +LEVO500T8 PO
[2017-08-08 14:31] VITALS: BP 149/110; PULSE 121; RESP 20; TEMP 98.4; O2SAT 97
[2017-08-08 15:00] VITALS: O2SAT 96
[2017-08-08] MEDS ORDERED: methylPREDNISolone SOD SUCC 125 MG/2 ML VIAL IV PUSH ONE (15:00)
[2017-08-08] MEDS ORDERED: SODIUM CHLORIDE 0.9% FLUSH 10 ML FLUSH IVF PRN (15:00)
[2017-08-08] MEDS: RESP: ALBUTEROL 2.5 MG/IPRATROPIUM 0.5 MG NEB (SCH) INH ×2 (15:11→15:12)
[2017-08-08 15:15] VITALS: PULSE 110; RESP 18; O2SAT 98
--- NOTE | 2017-08-08 15:25 | PD ---
HPI Chief Complaint: Pain: Acute or Chronic Time Seen by Provider: 14:48 Travel History International Travel<30 days: No Contact w/Intl Traveler<30days: No Traveled to known affect area: No History of Present Illness HPI 52-year-old male presents to the emergency department sent by his primary care physician, Dr. Woodward, for evaluation of an area of erythema to the right lower leg, history of DVT. Patient is on Eliquis and is compliant. The patient also reports increased shortness of breath for the past hour. He has history of asthma, COPD. Patient states he had an albuterol treatment and an injection of Rocephin at his primary care physician's office. Patient denies any chest pain. He states that he also has right upper quadrant abdominal pain that has been ongoing for 4 days. He denies any other abdominal pain. No nausea or vomiting. No diarrhea or constipation. Moderate severity. No exacerbating or alleviating factors. PFSH Past Medical History Hx Anticoagulant Therapy: Yes (ELIQUIS) Arthritis: Yes Asthma: Yes Autoimmune Disease: No Blood Disorders: No Anxiety: Yes Depression: No Heart Rhythm Problems: Yes (sinus tachycardia) Cancer: No Cardiovascular Problems: Yes High Cholesterol: Yes Chemotherapy: No Chest Pain: No Congestive Heart Failure: No COPD: Yes Cerebrovascular Accident: No Diabetes: Yes Diminished Hearing: No Deep Vein Thrombosis: Yes (DECEMBER 2015: RIGHT LEG WITH PULMONARY EMBOLISM X2) Endocrine: Yes Gastrointestinal Disorders: No GERD: Yes Genitourinary: No Headaches: No Hiatal Hernia: No Heparin Induced Thrombocytopen: No Hypertension: Yes (New HTN since last admit per pt/not documented) Immune Disorder: No Implanted Vascular Access Dvce: Yes Kidney Stones: No Musculoskeletal: Yes (HIP SURGERIES, ARTHRITIS) Neurologic: No Psychiatric: Yes Reproductive: No Respiratory: Yes Migraines: No Myocardial Infarction: Yes Pneumonia: Yes (NOVEMBER 2015) Radiation Therapy: No Renal Failure: No Seizures: No Sickle Cell Disease: No Sleep Apnea: No Thyroid Disease: No Ulcer: No Past Surgical History Abdominal Surgery: No AICD: No Appendectomy: Yes Arteriovenous Shunt: No Cardiac Surgery: No Endocrine Surgery: No Eye Surgery: No Genitourinary Surgery: Yes (apendectomy) Gynecologic Surgery: No Insulin Pump: No Joint Replacement: Yes (BILAT HIP REPLACEMENT) Neurologic Surgery: No Oral Surgery: Yes (TONSILLECTOMY) Pacemaker: No Thoracic Surgery: No Tonsillectomy: Yes Other Surgery: Yes (HIPS, APPENDIX, TONSILS) Social History Alcohol Use: Yes Tobacco Use: No Substance Use: No Allergies-Medications (Allergen,Severity, Reaction): Coded Allergies: doxycycline (Unverified Allergy, Severe, throat swells, 08/08/17) minocycline (Unverified Allergy, Severe, throat swells, 08/08/17) tigecycline (Unverified Allergy, Severe, throat swells, 08/08/17) meperidine (Unverified Allergy, Intermediate, hallucinations, 08/08/17) Reported Meds & Prescriptions Reported Meds & Active Scripts Active Proventil Hfa 6.7 GM Inh (Albuterol Sulfate) 90 Mcg/Act Aer 2 Puff INH Q4-6H PRN Potassium Chloride ER (Potassium Chloride) 20 Meq Tab 20 Meq PO BID Flomax (Tamsulosin HCl) 0.4 Mg Cap 0.4 Mg PO DAILY Glucophage (Metformin HCl) 500 Mg Tab 500 Mg PO BIDPC Ferosul (Ferrous Sulfate) 325 Mg Tablet 325 Mg PO BID Furosemide 40 Mg Tab 40 Mg PO DAILY Eliquis (Apixaban) 5 Mg Tab 5 Mg PO BID Ativan (Lorazepam) 0.5 Mg Tab 0.5 Mg PO BID Reported Levofloxacin 500 Mg Tablet 500 Mg PO DAILY Prednisone 50 Mg Tab 10 Mg PO DAILY Omeprazole 40 Mg Cap 40 Mg PO HS Matzim LA (Diltiazem ER 24 HR) 360 Mg Can 360 Mg PO DAILY Duoneb (Ipratropium-Albuterol Neb) 0.5-2.5 Mg/3 Ml Neb 1 Nebule NEB QID PRN Symbicort Inh (Budesonide/Formoterol Fumarate) 160-4.5 Mcg/Act Aero 2 Puff INH Q12HR Singulair (Montelukast Sodium) 10 Mg Tab 10 Mg PO HS Lipitor (Atorvastatin Calcium) 20 Mg Tab 20 Mg PO HS Levalbuterol Neb (Levalbuterol HCl) 1.25 Mg/3 Ml Neb 1.25 Mg NEB BID PRN Review of Systems Except as stated in HPI: all other systems reviewed are Neg Physical Exam Narrative GENERAL: Well-nourished, well-developed male patient, ambulatory. Afebrile SKIN: Focused skin assessment warm/dry. Small area of erythema to the right medial lower leg. No lymphadenitis. HEAD: Normocephalic. Atraumatic. EYES: No scleral icterus. No injection or drainage. NECK: Supple, trachea midline. No JVD or lymphadenopathy. CARDIOVASCULAR: Regular rate and rhythm without murmurs, gallops, or rubs. Bilateral radial and pedal pulses are 2+. RESPIRATORY: Breath sounds equal bilaterally. No accessory muscle use. Lungs sounds diminished in strength or wheezes noted throughout. GASTROINTESTINAL: Abdomen soft, obese, nondistended. Patient's tenderness over the right upper quadrant. No other abdominal tenderness to palpation. MUSCULOSKELETAL: No cyanosis, or edema. BACK: Nontender without obvious deformity. No CVA tenderness. Data Data Last Documented VS Vital Signs Date Time Temp Pulse Resp B/P (MAP) Pulse Ox O2 Delivery O2 Flow Rate FiO2 08/08/17 15:15 110 18 98 Nasal Cannula 2.00 08/08/17 14:31 98.4 Orders Orders Electrocardiogram (08/08/17 14:54) Complete Blood Count With Diff (08/08/17 14:54) Comprehensive Metabolic Panel (08/08/17 14:54) Chest, Single Ap (08/08/17 14:54) Ecg Monitoring (08/08/17 14:54) Iv Access Insert/Monitor (08/08/17 14:54) Oximetry (08/08/17 14:54) Oxygen Administration (08/08/17 14:54) Methylprednisolone So Succ Inj (Solumedr (08/08/17 15:00) Albuterol-Ipratropium Neb (Duoneb Neb) (08/08/17 15:00) Sodium Chloride 0.9% Flush (Ns Flush) (08/08/17 15:00) Lipase (08/08/17 14:54) Creatine Kinase (Cpk) (08/08/17 14:54) Troponin I (08/08/17 14:54) Us Abdomen Gallbladder (08/08/17 ) Us Leg Venous Doppler (08/08/17 ) Labs Laboratory Tests Test 08/08/17 15:40 White Blood Count 10.1 TH/MM3 Red Blood Count 4.58 MIL/MM3 Hemoglobin 13.4 GM/DL Hematocrit 40.6 % Mean Corpuscular Volume 88.7 FL Mean Corpuscular Hemoglobin 29.2 PG Mean Corpuscular Hemoglobin Concent 32.9 % Red Cell Distribution Width 18.6 % Platelet Count 255 TH/MM3 Mean Platelet Volume 7.1 FL Neutrophils (%) (Auto) 68.8 % Lymphocytes (%) (Auto) 20.6 % Monocytes (%) (Auto) 8.8 % Eosinophils (%) (Auto) 0.8 % Basophils (%) (Auto) 1.0 % Neutrophils # (Auto) 7.0 TH/MM3 Lymphocytes # (Auto) 2.1 TH/MM3 Monocytes # (Auto) 0.9 TH/MM3 Eosinophils # (Auto) 0.1 TH/MM3 Basophils # (Auto) 0.1 TH/MM3 CBC Comment AUTO DIFF Differential Total Cells Counted 100 Neutrophils % (Manual) 57 % Lymphocytes % 33 % Monocytes % 7 % Basophils % 1 % Neutrophils # (Manual) 6.0 TH/MM3 Metamyelocytes 2 % Differential Comment FINAL DIFF MANUAL Platelet Estimate NORMAL Platelet Morphology Comment NORMAL Red Cell Morphology Comment NORMAL Blood Urea Nitrogen 15 MG/DL Creatinine 1.15 MG/DL Random Glucose 101 MG/DL Total Protein 7.0 GM/DL Albumin 4.1 GM/DL Calcium Level 8.8 MG/DL Alkaline Phosphatase 108 U/L Aspartate Amino Transf (AST/SGOT) 36 U/L Alanine Aminotransferase (ALT/SGPT) 88 U/L Total Bilirubin 0.6 MG/DL Sodium Level 140 MEQ/L Potassium Level 3.5 MEQ/L Chloride Level 103 MEQ/L Carbon Dioxide Level 28.9 MEQ/L Anion Gap 8 MEQ/L Estimat Glomerular Filtration Rate 67 ML/MIN Total Creatine Kinase 182 U/L Troponin I LESS THAN 0.02 NG/ML Lipase 133 U/L MDM Medical Decision Making Medical Screen Exam Complete: Yes Emergency Medical Condition: Yes Medical Record Reviewed: Yes Interpretation(s) chest x-ray - CONCLUSION: No acute disease. Differential Diagnosis Asthma exacerbation versus pneumonia versus cellulitis versus DVT versus cholelithiasis versus cholecystitis Narrative Course 52-year-old male presents to the emergency department for evaluation of increasing shortness of breath, right lower extremity erythema, right upper quadrant abdominal pain. EKG, CBC, CMP, lipase, CK, troponin, chest x-ray are ordered and pending. Ultrasound of the gallbladder ultrasound of the right leg venous Doppler are ordered and pending. Patient is given DuoNeb 3, Solu- Medrol 125 mg IV. EKG shows ST, no acute ST changes. CBC shows no acute abnormality. CMP shows no acute abnormality. Lipase is 133. CK is 182. Troponin is less than 0.02. Chest x-ray shows no acute disease. US gallbladder is negative. US leg is negative for DVT. Patient states he feels much better after breathing treatments. He'll be discharged with a prednisone taper, Bactrim. He is instructed to follow-up with his primary care physician. He is return here for any acute worsening of symptoms. The patient was discharged in stable condition with instructions, including return instructions and follow up instructions. Diagnosis Primary Impression: Cellulitis of right leg Additional Impression: Acute asthma exacerbation Qualified Codes: J45.901 - Unspecified asthma with (acute) exacerbation Referrals: Primary Care Physician call for appointment Patient Instructions: Asthma (ED), Cellulitis (ED), General Instructions Additional Instructions: Continue albuterol instructed as needed for shortness of breath/wheezing. Take prednisone taper as directed. Take Bactrim as directed until gone for cellulitis. Return if leg swelling worsens or does not improve. Follow-up with your primary care physician. Return to the emergency department for any acute worsening of symptoms. Med/Other Pt SpecificInfo: Prescription(s) given Scripts Sulfamethoxazole-Trimethoprim (Bactrim DS) 800-160 Mg Tab 1 TAB PO BID for Infection, #20 TAB 0 Refills Prov: Lisa Danielson 08/08/17 Prednisone (Prednisone) 5 Mg Tab 5 MG PO DIRECTED, #10 TAB 0 Refills Take 40 mg for 2 days, then take 30 mg for 2 days, then take 20 mg for 2 days, then take 10 mg for 2 days, then take 5 times for 2 days, then stop. Prov: Lisa Danielson 08/08/17 Disposition: 01 DISCHARGE HOME Condition: Stable Lisa Danielson Aug 08, 2017 15:25
--- NOTE | 2017-08-08 15:33 | RADRPT ---
EXAM DATE/TIME: 08/08/2017 15:04 [facility] COMPARISON: CHEST SINGLE AP, July 08, 2017, 3:26. INDICATIONS : Wheezing. MEDICAL HISTORY : Chronic obstructive pulmonary disease. Hypertension Deep venous thrombosis. asthma, PE SURGICAL HISTORY : None. ENCOUNTER: Initial ACUITY: 2 days PAIN SCORE: 7/10 LOCATION: Right chest FINDINGS: A single view of the chest demonstrates the lungs to be symmetrically aerated without evidence of mas s, infiltrate or effusion. The cardiomediastinal contours are unremarkable. Osseous structures are intact. CONCLUSION: No acute disease. Elías Hull MD FACR on August 08, 2017 at 15:30 Board Certified Radiologist. This report was verified electronically.
--- NOTE | 2017-08-08 15:40 | RADRPT ---
EXAM DATE/TIME: 08/08/2017 15:05 [facility] COMPARISON: US LEG RIGHT VENOUS DOPPLER, December 27, 2016, 10:06. INDICATIONS : Right leg swelling. MEDICAL HISTORY : Myocardial infarction. Hypercholesterolemia. Arthritis. Sinus tachycardia. HTN. Pulmonary embolism . DVT. COPD. Asthma. Pneumonia. Dyspnea. GERD. Diabetes. Anxiety. Anticoagulant therapy, Eliquis. SURGICAL HISTORY : Tonsillectomy. Appendectomy. Bilateral hip surgeries x4. Bilateral hip replacement. Blood transfusi ons. ENCOUNTER: Subsequent ACUITY: 1 day PAIN SCORE: 3/10 LOCATION: Right leg. TECHNIQUE: Venous ultrasound of the leg was performed from the inguinal ligament to the proximal calf. Real-manolo e, color Doppler and spectral tracing, compression and augmentation techniques were used. FINDINGS: There is normal compressibility of the deep venous system from the inguinal region to the proximal ca lf. No echogenic clot is seen in the lumen of the common femoral, femoral, popliteal, and posterior tibial veins. There is a normal response of the venous system to proximal and distal augmentation an d respiration. CONCLUSION: Negative for deep venous thrombosis. Elías Hull MD FACR on August 08, 2017 at 15:37 Board Certified Radiologist. This report was verified electronically.
[2017-08-08 15:58] LABS: BASOPHIL # 0.1 TH/MM3 (0-0.2); EOSINOPHIL # 0.1 TH/MM3 (0-0.4); EOSINOPHIL % 0.8 % (0.0-4.0); HEMATOCRIT 40.6 % (39.0-51.0); LYMPH % 20.6 % (9.0-44.0); LYMPHOCYTE # 2.1 TH/MM3 (1.0-4.8); MEAN CELL VOLUME 88.7 FL (80.0-100.0); MEAN CORPUSCULAR HEMOGLOBIN 29.2 PG (27.0-34.0); MEAN CORPUSCULAR HGB CONC 32.9 % (32.0-36.0); MONO % 8.8 % (0.0-8.0); NEUT % 68.8 % (16.0-70.0); PLATELET COUNT 255 TH/MM3 (150-450); RED BLOOD COUNT 4.58 MIL/MM3 (4.50-5.90); RED CELL DISTRIBUTION WIDTH 18.6 % (11.6-17.2); WHITE BLOOD COUNT 10.1 TH/MM3 (4.0-11.0)
[2017-08-08 16:01] LABS: HEMO FLAGS AUTO DIFF
--- NOTE | 2017-08-08 16:25 | RADRPT ---
EXAM DATE/TIME: 08/08/2017 15:14 [facility] COMPARISON: US LEG RIGHT VENOUS DOPPLER, August 08, 2017, 15:05. INDICATIONS : Right upper quadrant pain. MEDICAL HISTORY : Myocardial infarction. Hypercholesterolemia. Arthritis. Sinus tachycardia. HTN. Pulmonary embolism. D VT. COPD. Asthma. Pneumonia. Dyspnea. GERD. Diabetes. Anxiety. Anticoagulant therapy, Eliquis. SURGICAL HISTORY : Tonsillectomy. Appendectomy. Bilateral hip surgeries x4. Bilateral hip replacement. Blood transfusi ons. ENCOUNTER: Subsequent ACUITY: 1 day PAIN SCORE: 4/10 LOCATION: Right upper quadrant MEASUREMENTS: LIVER: 18.0 cm length COMMON DUCT: 6 mm RIGHT KIDNEY: 10.0 x 4.6 x 5.3 cm FINDINGS: LIVER: The examination demonstrates fatty infiltration of the liver. There is no intrahepatic ductal dilatio n. The common duct measures 6 mm. COMMON DUCT: No intraluminal mass or stone visualized. GALLBLADDER: Contains no stones, demonstrates no wall thickening or pericholecystic fluid. PANCREAS: The visualized portions are within normal limits. RIGHT KIDNEY: No evidence of hydronephrosis, stone, or mass. CONCLUSION: 1. Fatty infiltration of the liver. Examination is otherwise unremarkable. Braulio Hull MD on August 08, 2017 at 16:16 Board Certified Radiologist. This report was verified electronically.
[2017-08-08 16:33] LABS: BASOPHILS 1 % (0-2); METAMYELOCYTES 2 % (0-1); POLYS (SEG NEUTROPHILS) 57 % (16-70); WBC DIFF SAMPLE 100
[2017-08-08 16:34] LABS: PLATELET ESTIMATE SMEAR NORMAL (NORMAL); PLATELET MORPHOLOGY NORMAL (NORMAL); SCAN/DIFF FINAL DIFF MANUAL
[2017-08-08 16:52] LABS: ALKALINE PHOSPHATASE 108 U/L (45-117); ALT (GPT) 88 U/L (12-78); ANION GAP 8 MEQ/L (5-15); AST (GOT) 36 U/L (15-37); BICARBONATE 28.9 MEQ/L (21.0-32.0); BLOOD UREA NITROGEN 15 MG/DL (7-18); CHLORIDE 103 MEQ/L (98-107); CREATINE KINASE 182 U/L (39-308); GLOMERULAR FILTRATION RATE 67 ML/MIN (>89); SODIUM (NA) 140 MEQ/L (136-145); TOTAL BILIRUBIN ADULT 0.6 MG/DL (0.2-1.0)
[2017-08-08 16:57] LABS: POTASSIUM 3.5 MEQ/L (3.5-5.1)
[2017-08-08] MEDS ORDERED: PRED5TAB PO (17:24)
[2017-08-08] MEDS ORDERED: BACT800T5 PO (17:24)
[2017-08-08 18:17] VITALS: BP 139/89
--- NOTE | 2017-08-10 23:25 | EKG ---
Date Performed: 08/08/2017 Time Performed: 16:05:09 PTAGE: 52 years EKG: SINUS TACHYCARDIA POSSIBLE LEFT ATRIAL ENLARGEMENT ABNORMAL ECG PREVIOUS TRACING : 07/08/2017 03.11 Compared to prior tracing no significant change DOCTOR: Shantanu King Interpretating Date/Time 08/10/2017 23:23:15
== END 2017-08-08 18:21 | disposition home or self-care (01) ==
LOC: NEPC 14:29
DX: L03.115 Cellulitis of right lower limb (principal); J45.901 Unspecified asthma with (acute) exacerbation; K76.0 Fatty (change of) liver, not elsewhere classified; J44.9 Chronic obstructive pulmonary disease, unspecified; J45.909 Unspecified asthma, uncomplicated; M19.90 Unspecified osteoarthritis, unspecified site; I10 Essential (primary) hypertension; R00.0 Tachycardia, unspecified; R94.31 Abnormal electrocardiogram [ECG] [EKG]
CPT/HCPCS: 71010; 76705; 80053; 82550; 83690; 84484; 85007; 85027; 93005; 93971; 94640; 94664; 96374; 99285; J2930

== ENCOUNTER 2017-08-25 09:39 | Emergency (ER) | payer BC ==
[~2017-08-25] VITALS: Ht 175.3 cm; Wt 110.0 kg
[~2017-08-25 09:39] MED LIST changes: +BACT800T5 PO; +PRED5TAB PO
[2017-08-25 09:41] VITALS: BP 126/87; PULSE 122; RESP 18; TEMP 98.4; O2SAT 96
[2017-08-25] MEDS ORDERED: SODIUM CHLORIDE 0.9% FLUSH 10 ML FLUSH IVF PRN (10:15)
--- NOTE | 2017-08-25 10:25 | PD ---
HPI Chief Complaint: Edema Time Seen by Provider: 10:01 Travel History International Travel<30 days: No Contact w/Intl Traveler<30days: No Traveled to known affect area: No History of Present Illness HPI patient is a 52-year-old male with a history of COPD, DVT on Eliquis presents the emergency department for evaluation of cough wheezing and congested. Patient is also noted some swelling of his right lower extremity. Endorses some chest discomfort as well. Denies any fevers. Denies any hemoptysis denies any sputum production. He states symptoms are moderate over the past few days, gradually worsening, context as above. PFSH Past Medical History Hx Anticoagulant Therapy: Yes (ELIQUIS) Arthritis: Yes Asthma: Yes Autoimmune Disease: No Blood Disorders: No Anxiety: Yes Depression: No Heart Rhythm Problems: Yes (sinus tachycardia) Cancer: No Cardiovascular Problems: Yes High Cholesterol: Yes Chemotherapy: No Chest Pain: No Congestive Heart Failure: No COPD: Yes Cerebrovascular Accident: No Diabetes: Yes Patient Takes Glucophage: Yes Diminished Hearing: No Deep Vein Thrombosis: Yes (DECEMBER 2015: RIGHT LEG WITH PULMONARY EMBOLISM X2) Endocrine: Yes Gastrointestinal Disorders: No GERD: Yes Genitourinary: No Headaches: No Hiatal Hernia: No Heparin Induced Thrombocytopen: No Hypertension: Yes (New HTN since last admit per pt/not documented) Immune Disorder: No Implanted Vascular Access Dvce: Yes Kidney Stones: No Musculoskeletal: Yes (HIP SURGERIES, ARTHRITIS) Neurologic: No Psychiatric: Yes Reproductive: No Respiratory: Yes (COPD, PNEUMONIA) Migraines: No Myocardial Infarction: Yes Pneumonia: Yes (NOVEMBER 2015) Radiation Therapy: No Renal Failure: No Seizures: No Sickle Cell Disease: No Sleep Apnea: No Thyroid Disease: No Ulcer: No Tetanus Vaccination: > 5 Years Influenza Vaccination: Yes Past Surgical History Abdominal Surgery: No AICD: No Appendectomy: Yes Arteriovenous Shunt: No Cardiac Surgery: No Endocrine Surgery: No Eye Surgery: No Genitourinary Surgery: Yes (apendectomy) Gynecologic Surgery: No Insulin Pump: No Joint Replacement: Yes (BILAT HIP REPLACEMENT) Neurologic Surgery: No Oral Surgery: Yes (TONSILLECTOMY) Pacemaker: No Thoracic Surgery: No Tonsillectomy: Yes Other Surgery: Yes (HIPS, APPENDIX, TONSILS) Social History Alcohol Use: Yes Tobacco Use: No Substance Use: No Allergies-Medications (Allergen,Severity, Reaction): Coded Allergies: doxycycline (Unverified Allergy, Severe, throat swells, 08/25/17) minocycline (Unverified Allergy, Severe, throat swells, 08/25/17) tigecycline (Unverified Allergy, Severe, throat swells, 08/25/17) meperidine (Unverified Allergy, Intermediate, hallucinations, 08/25/17) Reported Meds & Prescriptions Reported Meds & Active Scripts Active Azithromycin 250 Mg Tab 250 Mg PO DIRECTED Take 2 tabs (500 mg) on day 1 then 1 tab daily x 4 days. Prednisone 20 Mg Tab 60 Mg PO DAILY 5 Days Bactrim DS (Sulfamethoxazole-Trimethoprim) 800-160 Mg Tab 1 Tab PO BID Prednisone 5 Mg Tab 5 Mg PO DIRECTED Take 40 mg for 2 days, then take 30 mg for 2 days, then take 20 mg for 2 days, then take 10 mg for 2 days, then take 5 times for 2 days, then stop. Proventil Hfa 6.7 GM Inh (Albuterol Sulfate) 90 Mcg/Act Aer 2 Puff INH Q4-6H PRN Potassium Chloride ER (Potassium Chloride) 20 Meq Tab 20 Meq PO BID Flomax (Tamsulosin HCl) 0.4 Mg Cap 0.4 Mg PO DAILY Glucophage (Metformin HCl) 500 Mg Tab 500 Mg PO BIDPC Ferosul (Ferrous Sulfate) 325 Mg Tablet 325 Mg PO BID Furosemide 40 Mg Tab 40 Mg PO DAILY Eliquis (Apixaban) 5 Mg Tab 5 Mg PO BID Ativan (Lorazepam) 0.5 Mg Tab 0.5 Mg PO BID Reported Levofloxacin 500 Mg Tablet 500 Mg PO DAILY Prednisone 50 Mg Tab 10 Mg PO DAILY Omeprazole 40 Mg Cap 40 Mg PO HS Matzim LA (Diltiazem ER 24 HR) 360 Mg Can 360 Mg PO DAILY Duoneb (Ipratropium-Albuterol Neb) 0.5-2.5 Mg/3 Ml Neb 1 Nebule NEB QID PRN Symbicort Inh (Budesonide/Formoterol Fumarate) 160-4.5 Mcg/Act Aero 2 Puff INH Q12HR Singulair (Montelukast Sodium) 10 Mg Tab 10 Mg PO HS Lipitor (Atorvastatin Calcium) 20 Mg Tab 20 Mg PO HS Levalbuterol Neb (Levalbuterol HCl) 1.25 Mg/3 Ml Neb 1.25 Mg NEB BID PRN Review of Systems Except as stated in HPI: all other systems reviewed are Neg Physical Exam Narrative GENERAL: Well-developed well-nourished, dry cough but nontoxic appearance. SKIN: Focused skin assessment warm/dry. HEAD: Atraumatic. Normocephalic. EYES: Pupils equal and round. No scleral icterus. No injection or drainage. ENT: No nasal bleeding or discharge. Mucous membranes pink and moist. NECK: Trachea midline. No JVD. CARDIOVASCULAR: Regular rhythm with tachycardia.. No murmur appreciated. RESPIRATORY: No accessory muscle use. Clear to auscultation. Breath sounds equal bilaterally. Tachypneic. GASTROINTESTINAL: Abdomen soft, non-tender, nondistended. Hepatic and splenic margins not palpable. MUSCULOSKELETAL: No obvious deformities. No clubbing. No cyanosis. Pitting edema of the right lower extremity, garrick color. Minimally tender to palpation. NEUROLOGICAL: Awake and alert. No obvious cranial nerve deficits. Motor grossly within normal limits. Normal speech. PSYCHIATRIC: Appropriate mood and affect; insight and judgment normal. Data Data Last Documented VS Orders Orders Electrocardiogram (08/25/17 10:01) Complete Blood Count With Diff (08/25/17 10:01) Comprehensive Metabolic Panel (08/25/17 10:01) Magnesium (Mg) (08/25/17 10:01) Prothrombin Time / Inr (Pt) (08/25/17 10:01) Act Partial Throm Time (Ptt) (08/25/17 10:01) Troponin I (08/25/17 10:01) Chest, Single Ap (08/25/17 10:01) Ecg Monitoring (08/25/17 10:01) Iv Access Insert/Monitor (08/25/17 10:01) Oximetry (08/25/17 10:01) Oxygen Administration (08/25/17 10:01) Sodium Chloride 0.9% Flush (Ns Flush) (08/25/17 10:15) Ct Pulmonary Angiogram (08/25/17 ) Us Leg Venous Doppler (08/25/17 10:23) Benzonatate (Tessalon) (08/25/17 10:30) Albuterol-Ipratropium Neb (Duoneb Neb) (08/25/17 11:00) Iohexol 350 Inj (Omnipaque 350 Inj) (08/25/17 12:15) Ed Discharge Order (08/25/17 12:38) Labs Laboratory Tests Test 08/25/17 10:25 White Blood Count 9.1 TH/MM3 Red Blood Count 4.59 MIL/MM3 Hemoglobin 13.8 GM/DL Hematocrit 40.6 % Mean Corpuscular Volume 88.3 FL Mean Corpuscular Hemoglobin 30.1 PG Mean Corpuscular Hemoglobin Concent 34.0 % Red Cell Distribution Width 17.5 % Platelet Count 265 TH/MM3 Mean Platelet Volume 7.1 FL Neutrophils (%) (Auto) 82.8 % Lymphocytes (%) (Auto) 11.0 % Monocytes (%) (Auto) 5.3 % Eosinophils (%) (Auto) 0.3 % Basophils (%) (Auto) 0.6 % Neutrophils # (Auto) 7.5 TH/MM3 Lymphocytes # (Auto) 1.0 TH/MM3 Monocytes # (Auto) 0.5 TH/MM3 Eosinophils # (Auto) 0.0 TH/MM3 Basophils # (Auto) 0.1 TH/MM3 CBC Comment AUTO DIFF Differential Total Cells Counted 100 Neutrophils % (Manual) 80 % Band Neutrophils % 7 % Lymphocytes % 5 % Monocytes % 5 % Neutrophils # (Manual) 8.2 TH/MM3 Metamyelocytes 3 % Differential Comment FINAL DIFF MANUAL Platelet Estimate NORMAL Platelet Morphology Comment NORMAL Ovalocytes 1+ Prothrombin Time 10.2 SEC Prothromb Time International Ratio 1.0 RATIO Activated Partial Thromboplast Time 24.3 SEC Blood Urea Nitrogen 15 MG/DL Creatinine 0.88 MG/DL Random Glucose 133 MG/DL Total Protein 6.9 GM/DL Albumin 4.0 GM/DL Calcium Level 8.7 MG/DL Magnesium Level 1.9 MG/DL Alkaline Phosphatase 119 U/L Aspartate Amino Transf (AST/SGOT) 29 U/L Alanine Aminotransferase (ALT/SGPT) 70 U/L Total Bilirubin 0.3 MG/DL Sodium Level 144 MEQ/L Potassium Level 3.6 MEQ/L Chloride Level 108 MEQ/L Carbon Dioxide Level 28.8 MEQ/L Anion Gap 7 MEQ/L Estimat Glomerular Filtration Rate 91 ML/MIN Troponin I LESS THAN 0.02 NG/ML MDM Medical Decision Making Medical Screen Exam Complete: Yes Emergency Medical Condition: Yes Differential Diagnosis COPD exacerbation, ACS, AMI, CHF, pulmonary embolism. Narrative Course Patient roomed in emergency department, initially tachypneic, given breathing treatment and is feeling better. Given the nature the swelling of the right lower extremity and his shortness of breath high consideration was given to PE and DVT, patient had CT PE protocol and ultrasound of his right lower extremity both of which were reassuring. There is some mild cellulitis of the right lower extremity, labs are reassuring, white blood count of 9.8 there is neutrophil predominance however. Patient feeling much better on reassessment, denies any chest pain, signs symptoms consistent with COPD exacerbation. He would like to go home currently, discussed symptomatic management returned ED criteria. Discussed of his leg is still swollen and 7010 days he should return to emergency department or his primary care physician for consideration of a repeat ultrasound Diagnosis Primary Impression: COPD exacerbation Med/Other Pt SpecificInfo: Prescription(s) given Scripts Azithromycin (Azithromycin) 250 Mg Tab 250 MG PO DIRECTED for Infection, #6 TAB 0 Refills Take 2 tabs (500 mg) on day 1 then 1 tab daily x 4 days. Prov: Samuel Morrell MD 08/25/17 Prednisone (Prednisone) 20 Mg Tab 60 MG PO DAILY for 5 Days, #15 TAB 0 Refills Prov: Samuel Morrell MD 08/25/17 Disposition: 01 DISCHARGE HOME Condition: Stable Samuel Morrell MD Aug 25, 2017 10:25
[2017-08-25] MEDS ORDERED: BENZONATATE 100 MG CAP PO ONE (10:30)
--- NOTE | 2017-08-25 10:37 | RADRPT ---
EXAM DATE/TIME: 08/25/2017 10:15 [facility] COMPARISON: CHEST SINGLE AP, August 08, 2017, 15:04. INDICATIONS : Patient states chest pain. MEDICAL HISTORY : Hypertension. Chronic obstructive pulmonary disease. Asthma SURGICAL HISTORY : None. ENCOUNTER: Initial ACUITY: 1 day PAIN SCORE: 5/10 LOCATION: Bilateral chest FINDINGS: A single view of the chest demonstrates the lungs to be symmetrically aerated without evidence of mas s, infiltrate or effusion. The cardiomediastinal contours are unremarkable. Osseous structures are intact. CONCLUSION: 1. No acute cardiopulmonary disease. Paul Galarza MD on August 25, 2017 at 10:25 Board Certified Radiologist. This report was verified electronically.
[2017-08-25 10:49] LABS: AUTOMATED NEUTROPHIL # 7.5 TH/MM3 (1.8-7.7); BASOPHIL # 0.1 TH/MM3 (0-0.2); BASOPHIL % 0.6 % (0.0-2.0); EOSINOPHIL % 0.3 % (0.0-4.0); HEMATOCRIT 40.6 % (39.0-51.0); HEMOGLOBIN 13.8 GM/DL (13.0-17.0); MEAN CELL VOLUME 88.3 FL (80.0-100.0); MEAN CORPUSCULAR HEMOGLOBIN 30.1 PG (27.0-34.0); MEAN PLATELET VOLUME 7.1 FL (7.0-11.0); MONO % 5.3 % (0.0-8.0); MONOCYTE # 0.5 TH/MM3 (0-0.9); NEUT % 82.8 % (16.0-70.0); PLATELET COUNT 265 TH/MM3 (150-450); RED BLOOD COUNT 4.59 MIL/MM3 (4.50-5.90); RED CELL DISTRIBUTION WIDTH 17.5 % (11.6-17.2); WHITE BLOOD COUNT 9.1 TH/MM3 (4.0-11.0)
[2017-08-25] MEDS ORDERED: RESP: ALBUTEROL 2.5 MG/IPRATROPIUM 0.5 MG NEB (SCH) NEB ONE (11:00)
[2017-08-25 11:08] LABS: ALT (GPT) 70 U/L (12-78); AST (GOT) 29 U/L (15-37); BICARBONATE 28.8 MEQ/L (21.0-32.0); BLOOD UREA NITROGEN 15 MG/DL (7-18); CALCIUM 8.7 MG/DL (8.5-10.1); CHLORIDE 108 MEQ/L (98-107); CREATININE 0.88 MG/DL (0.60-1.30); GLOMERULAR FILTRATION RATE 91 ML/MIN (>89); GLUCOSE,RANDOM 133 MG/DL (74-106); MAGNESIUM 1.9 MG/DL (1.5-2.5); SODIUM (NA) 144 MEQ/L (136-145)
--- NOTE | 2017-08-25 11:10 | RADRPT ---
EXAM DATE/TIME: 08/25/2017 10:39 [facility] COMPARISON: US LEG RIGHT VENOUS DOPPLER, August 08, 2017, 15:05. INDICATIONS : Right leg swelling. MEDICAL HISTORY : Myocardial infarction. Hypercholesterolemia. Arthritis. Sinus tachycardia. HTN. Pulmonary embolism . DVT. COPD. Asthma. Pneumonia. Dyspnea. GERD. Diabetes. Anxiety. Anticoagulant therapy, Eliquis. SURGICAL HISTORY : Tonsillectomy. Appendectomy. Bilateral hip surgeries x4. Bilateral hip replacement. Blood transfusi ons. ENCOUNTER: Sequela ACUITY: 2 day PAIN SCORE: 3/10 LOCATION: Right leg. TECHNIQUE: Venous ultrasound of the leg was performed from the inguinal ligament to the proximal calf. Real-manolo e, color Doppler and spectral tracing, compression and augmentation techniques were used. FINDINGS: There is normal compressibility of the deep venous system from the inguinal region to the proximal ca lf. No echogenic clot is seen in the lumen of the common femoral, femoral, popliteal, and posterior tibial veins. There is a normal response of the venous system to proximal and distal augmentation an d respiration. CONCLUSION: Negative exam. No DVT identified in the right lower extremity. Russ Morrison MD on August 25, 2017 at 11:07 Board Certified Radiologist. This report was verified electronically.
[2017-08-25 11:11] LABS: PROTHROMBIN TIME - PATIENT 10.2 SEC (9.8-11.6)
[2017-08-25 11:13] LABS: ALKALINE PHOSPHATASE 119 U/L (45-117); TOTAL BILIRUBIN ADULT 0.3 MG/DL (0.2-1.0); TOTAL PROTEIN 6.9 GM/DL (6.4-8.2); TROPONIN I LESS THAN 0.02 NG/ML (0.02-0.05)
[2017-08-25 11:44] LABS: BANDS 7 % (0-6); LYMPHOCYTES 5 % (9-44); METAMYELOCYTES 3 % (0-1); MONOCYTES 5 % (0-8); NEUTROPHIL # MANUAL DIFF 8.2 TH/MM3 (1.8-7.7); OVALOCYTES 1+ (NORMAL); POLYS (SEG NEUTROPHILS) 80 % (16-70)
--- NOTE | 2017-08-25 12:10 | RADRPT ---
EXAM DATE/TIME: 08/25/2017 11:29 [facility] COMPARISON: CT PULMONARY ANGIOGRAM, July 09, 2017, 15:19. INDICATIONS : Left side chest pain IV CONTRAST: 100 cc Omnipaque 350 (iohexol) IV RADIATION DOSE: 17.03 CTDIvol (mGy) MEDICAL HISTORY : Cardiovascular disease. Hypertension. Deep venous thrombosis.Daibetes,COPD SURGICAL HISTORY : Appendectomy. ENCOUNTER: Initial ACUITY: 2 days PAIN SCALE: 6/10 LOCATION: chest TECHNIQUE: Volumetric scanning of the chest was performed using a pulmonary embolism protocol MIP images were re constructed. Using automated exposure control and adjustment of the mA and/or kV according to patien t size, radiation dose was kept as low as reasonably achievable to obtain optimal diagnostic quality images. DICOM format image data is available electronically for review and comparison. Follow-up recommendations for detected pulmonary nodules are based at a minimum on nodule size and pa tient risk factors according to Fleischner Society Guidelines. FINDINGS: PULMONARY ARTERIES: No filling defects are seen in the pulmonary arteries through the segmental level. LUNGS: Subtle posterior lower lobe otherwise opacities likely reflecting atelectasis. PLEURAE: There is no pleural thickening or pleural effusion. MEDIASTINUM: There is good visualization of the great vessels of the middle mediastinum. Mild coronary artery kevin cifications. No evidence of mediastinal or hilar adenopathy/mass. MUSCULOSKELETAL: Mild degenerative spondylosis of the thoracic spine. MISCELLANEOUS: The visualized upper abdominal organs demonstrate no acute abnormality. CONCLUSION: 1. No CT evidence for acute pulmonary embolism. 2. Coronary artery calcifications. 3. Otherwise, unremarkable CT examination of the chest. Paul Galarza MD on August 25, 2017 at 12:05 Board Certified Radiologist. This report was verified electronically.
[2017-08-25] MEDS ORDERED: IOHEXOL 350 MG/ML 10 ML VIAL (for RAD DIAG) IVCONTRAST ONE (12:15)
[2017-08-25] MEDS ORDERED: PRED20 PO (12:38)
[2017-08-25] MEDS ORDERED: AZIT250T3 PO (12:38)
--- NOTE | 2017-08-25 17:58 | EKG ---
Date Performed: 08/25/2017 Time Performed: 10:32:04 PTAGE: 52 years EKG: SINUS TACHYCARDIA VOLTAGE CRITERIA FOR LVH Since previous tracing, no significant change no moise ABNORMAL ECG PREVIOUS TRACING : 08/08/2017 16.05 DOCTOR: Donnell Vail Interpretating Date/Time 08/25/2017 17:56:55
== END 2017-08-25 13:01 | disposition home or self-care (01) ==
LOC: NEPC 09:39
DX: J44.1 Chronic obstructive pulmonary disease with (acute) exacerbation (principal); E78.00 Pure hypercholesterolemia, unspecified; E11.9 Type 2 diabetes mellitus without complications; K21.9 Gastro-esophageal reflux disease without esophagitis; M79.89 Other specified soft tissue disorders; Z79.01 Long term (current) use of anticoagulants; Z79.84 Long term (current) use of oral hypoglycemic drugs
CPT/HCPCS: 71010; 71275; 80053; 83735; 84484; 85007; 85027; 85610; 85730; 93005; 93971; 94664; 99285; Q9967

== ENCOUNTER → 2017-10-13 | Day surgery (SDC) | payer BC ==
--- NOTE | 2017-10-02 10:11 | MH ---
cc: JAMES CONNELL DATE OF ADMISSION 10/13/2017 ADMISSION DIAGNOSIS Cataract left eye. HISTORY OF PRESENT ILLNESS This 52-year-old white male is coming through [facility] for the purpose of a lens extraction of the left eye with intraocular lens implant under general anesthesia. He has noted decreasing visual acuity interfering with his daily activities and elected to have the above procedure. His best corrected visual acuity in room light is 20/40 -2 in each eye. PAST MEDICAL HISTORY 1. Hypertension 2. Diabetes since November of 2016 3. Chronic obstructive pulmonary disease, 4. Asthma 5. Tachycardia 6. History of blood clots in his lungs and legs 7. Benign prostatic hypertrophy. 8. He states that cannot lie flat for very long and that is why he is having a request for general anesthesia. PAST SURGICAL HISTORY 1. Appendectomy 2. Seven hip surgeries MEDICATIONS Daily include 1. Metformin 2. Singulair 3. Prednisone 5 mg 4. Lipitor. 5. Lasix. 6. Potassium. 7. Iron 8. Blood pressure medications 9. Eliquis. 10. History of Flomax for 6 months in the past. ALLERGIES DEMEROL TETRACYCLINE SOCIAL HISTORY Does not smoke or drink. FAMILY HISTORY Positive for cataracts. REVIEW OF SYSTEMS HEAD: Patient denies severe headaches, dizziness or recent head injury. EARS: Patient denies hearing loss, ear pain, discharge or ringing in the ears. NOSE: Patient denies nasal discharge, obstruction or frequent colds. MOUTH AND THROAT: Patient denies soreness of the mouth or tongue, bleeding gums, trouble swallowing, changes in voice or sore throat. NECK: Patient denies neck pain or swelling, limitation of neck movement or neck injury. CARDIOPULMONARY SYSTEM: Patient denies shortness of breath, orthopnea, chronic cough, sputum production, hemoptysis, chest pain, wheezing, palpitations or light-headedness. GI SYSTEM: Patient denies poor appetite, nausea, vomiting, abdominal pain, ulcers, hemorrhoids or change in bowel habits. SYSTEM: The patient denies urinary frequency, dysuria, change in urine color. NERVOUS SYSTEM: Patient denies convulsions, vertigo, stroke, numbness or weakness. The following are positives: The patient has chronic obstructive pulmonary disease. She occasionally gets shortness of breath and sleeps on several pillows and occasionally awakens at night short of breath. He does have a history of wheezing and tachycardia. He has urinary frequency day and night due to his prostate hypertrophy. The rest is negative. PHYSICAL EXAMINATION VITAL SIGNS: Blood pressure is 128/82, pulse is 100, respirations 20. HEAD: Normocephalic, atraumatic. NOSE: Without rhinorrhea. THROAT: Clear. NECK: Supple. CHEST: Clear. HEART: Regular rhythm but high rate. ABDOMEN: Without tenderness. EXTREMITIES: With right ankle edema. NEUROLOGIC: Within normal limits. Mental status within normal limits. EYE EXAMINATION The patient's best corrected visual acuity in room light is 20/40 -2 in each eye. Visual fair are full to confrontation testing. Extraocular muscle exam reveals full versions with orthophoria in the distance and exophoria at near. Pupils are 3 mm equal, round, reactive to light without afferent defect. Anterior segment examination reveals conjunctival pinguecula. There are posterior subcapsular cataract changes bilaterally. Intraocular pressure is 17 in the right eye and 18 in the left by applanation tonometry. Dilated fundus exam revealed sharp disk with cup-to-disk ratio 0.3 bilaterally. The macula is clear. The background is within normal limits. IMPRESSION 1. Bilateral cataracts 2. Conjunctival pinguecula PLAN Lens extraction of the left eye with intraocular lens implant under general anesthesia through [facility]. The patient has been cleared medically. He has been counseled as to the risks, benefits and alternatives and elected to proceed. I feel that cataract surgery will improve the quality of life and activities of daily living in this patient. Please have a copy at [facility] on October 13, 2017. MD DAVID Davidson/ /4:19 PM /9:52 AM
[~2017-10-13] VITALS: Ht 175.3 cm; Wt 109.5 kg
[~2017-10-13] MED LIST changes: +ACETYLCHOLINE CHL OPHT SOLN 1:100 2 ML VIAL ONE; +AZIT250T3 PO; +CHLORHEXIDINE GLUCONATE 2 % 1 PACK (2 CLOTHS) TOPICAL PRN; +CYCLOPENTOLATE HCL 1% OPHT SOLN 2 ML BTL ONE; +DICLOFENAC SOD 0.1% OPHT SOLN 2.5 ML BTL ONE; +EPINEPHrine HCL PF/SF (1:1000) 1 MG/ML AMP I-OCULAR ONE; +FAMOTIDINE 20 MG/2 ML VIAL ONE; +GATIFLOXACIN 0.5% OPHT SOLN 2.5 ML BTL ONE; +LACTATED RINGER'S 1000 ML IV PRN; +LIDOCAINE HCL 1% PF 5 ML SYRINGE OTHER ONE; +METOPROLOL TARTRATE 25 MG TAB PO PRN; +ONDANSETRON HCL 4 MG/2 ML VIAL ONE; +PHENYLEPHRINE HCL 2.5% OPTH SOLN 2 ML BTL ONE; +PILOCARPINE HCL 2% OPHT SOLN 15 ML BTL ONE; +POVIDONE IODINE 5% (ANTISEPSIS KIT) 4 APPLICATIONS EACH NARE PRN; +PRED10 PO; +PRED20 PO; +PROPARACAINE HCL 0.5% OPHT SOLN 15 ML BTL LEFT EYE ONE; +PROPARACAINE HCL 0.5% OPHT SOLN 15 ML BTL ONE; +PROPOFOL 200 MG/20 ML AMP IV ONE; +SODIUM CHLORID 0.9% 500 ML IV PRN; +TETRACAINE 0.5% OPTH SOLN 4 ML BTL ONE; +TOBRAMYCIN/DEXAMETHASONE OPTH OINT 3.5 GM TUBE ONE; +TROPICAMIDE 1% OPHT SOLN 15 ML BTL ONE; +VISCOAT OPHT IRRIG SOLN 0.75 ML SYRINGE ONE
[2017-10-13] MEDS: DICLOFENAC SOD 0.1% OPHT SOLN 2.5 ML BTL LEFT EYE SCH ×7 (06:50→07:05)
[2017-10-13] MEDS: GATIFLOXACIN 0.5% OPHT SOLN 2.5 ML BTL LEFT EYE SCH ×7 (06:50→07:05)
[2017-10-13] MEDS: TROPICAMIDE 1% OPHT SOLN 15 ML BTL LEFT EYE SCH ×7 (06:50→07:05)
[2017-10-13] MEDS: PHENYLEPHRINE HCL 2.5% OPTH SOLN 2 ML BTL LEFT EYE SCH ×7 (06:50→07:05)
[2017-10-13] MEDS: CYCLOPENTOLATE HCL 1% OPHT SOLN 2 ML BTL LEFT EYE SCH ×7 (06:50→07:05)
[2017-10-13 08:55] VITALS: PULSE 92
--- NOTE | 2017-10-13 09:19 | MP ---
cc: JAMES EWING DATE OF SURGERY 10/13/2017 PREOPERATIVE DIAGNOSIS Cataract, left eye. POSTOPERATIVE DIAGNOSIS Cataract, left eye. OPERATION Extracapsular cataract extraction with posterior chamber intraocular lens implant by phacoemulsification, left eye. SURGEON James Ewing M.D. ANESTHESIA General. COMPLICATIONS None. INDICATIONS See history and physical previously dictated. OPERATIVE PROCEDURE The patient was brought to the operating room and after general anesthesia the left eye was prepped and draped in the usual sterile ophthalmic manner. A lid speculum was inserted in the left eye. A 4-0 silk bridle suture was placed through the conjunctiva near the superior rectus muscle and it was tacked to the drape. A fornix-based conjunctival flap was prepared spanning approximately 5 mm in width. Hemostasis was obtained with wet-field cautery. A 3.5 mm groove was made 1 mm from the limbus and dissected up to the limbus in the form of a scleral pocket incision. A stab incision was then made at the 2 o'clock position. Preservative-free epinephrine was injected into the anterior chamber. Viscoelastic was injected into the sideport. The anterior chamber was entered with a 2.75 mm keratome through the scleral pocket incision. A 360 degree continuous curvilinear capsulorrhexis was then performed. Hydrodissection was utilized to divide the nucleus into inner and outer components and to separate the cortex from the capsule. Phacoemulsification was then utilized to remove the nucleus. The outer nuclear layer was removed with irrigation and aspiration and short bursts of ultrasound as necessary. The cortex was removed with the irrigation-aspiration handpiece. The posterior capsule was polished with the capsule polisher. Viscoelastic was injected into the capsular bag. The intraocular lens was inspected and found to be in good condition. The lens utilized was an Roland model SA60AT with a power of +18 diopters. The lens was inserted into the capsular bag. The viscoelastic in the anterior chamber was then removed with the irrigation-aspiration handpiece. Viscoelastic was also removed from beneath the intraocular lens. The anterior chamber was filled with Miochol-E through the stab incision and pressurized. The wound was checked for leaks at this pressure and normalized pressure, and there were none. The 4-0 bridle suture was removed. The conjunctival flap was brought down over the wound and secured with cautery. Pilocarpine 2% eye drops were instilled topically. The lid speculum was removed. TobraDex ophthalmic ointment was applied. The eye was double patched and shielded. The patient tolerated the procedure well and left the Operating Room in satisfactory condition. MD DAVID Davidson/BLAYNE /9:04 AM /9:09 AM
[2017-10-13 10:10] VITALS: BP 132/90; PULSE 88; RESP 16; TEMP 97.6; O2SAT 98
== END | disposition home or self-care (01) ==
LOC: PHSDC 06:22
PROVIDERS: ATTEND Ophthalmology
DX: H26.9 Unspecified cataract (principal); I10 Essential (primary) hypertension; E11.9 Type 2 diabetes mellitus without complications; J44.9 Chronic obstructive pulmonary disease, unspecified; Z79.01 Long term (current) use of anticoagulants; Z79.899 Other long term (current) drug therapy; Z79.84 Long term (current) use of oral hypoglycemic drugs
CPT/HCPCS: 00142; 66984; J0171; J2405; J7040; V2632

== ENCOUNTER → 2017-11-10 | Day surgery (SDC) | payer BC ==
[~2017-11-10] VITALS: Ht 175.3 cm; Wt 110.0 kg
[~2017-11-10] MED LIST changes: -AZIT250T3 PO; -BACT800T5 PO; -FAMOTIDINE 20 MG/2 ML VIAL ONE; -IPRASOL NEB; -LEVO500T8 PO; -PRED20 PO; -PRED5TAB PO; -PROPARACAINE HCL 0.5% OPHT SOLN 15 ML BTL LEFT EYE ONE; +PROPARACAINE HCL 0.5% OPHT SOLN 15 ML BTL RIGHT EYE ONE; +RESP: ALBUTEROL 2.5 MG/3 ML NEB (SCH) ONE; +acetaZOLAMIDE SEQUELS 500 MG SUSTAINED RELEASE CAP ONE
[2017-11-10] MEDS: CYCLOPENTOLATE HCL 1% OPHT SOLN 2 ML BTL RIGHT EYE SCH ×4 (06:46→06:55)
[2017-11-10] MEDS: TROPICAMIDE 1% OPHT SOLN 15 ML BTL RIGHT EYE SCH ×4 (06:46→06:55)
[2017-11-10] MEDS: PHENYLEPHRINE HCL 2.5% OPTH SOLN 2 ML BTL RIGHT EYE SCH ×4 (06:46→06:55)
[2017-11-10] MEDS: GATIFLOXACIN 0.5% OPHT SOLN 2.5 ML BTL RIGHT EYE SCH ×4 (06:46→06:55)
[2017-11-10] MEDS: DICLOFENAC SOD 0.1% OPHT SOLN 2.5 ML BTL RIGHT EYE SCH ×4 (06:46→06:55)
--- NOTE | 2017-11-10 08:19 | RADRPT ---
EXAM DATE/TIME: 11/10/2017 07:49 [facility] COMPARISON: US LEG RIGHT VENOUS DOPPLER, August 25, 2017, 10:39. INDICATIONS : Right leg swelling. MEDICAL HISTORY : Myocardial infarction. Hypercholesterolemia. Arthritis. Sinus tachycardia. HTN. Pulmonary embolism. D VT. COPD. Asthma. Pneumonia. Dyspnea. GERD. Diabetes. Anxiety. Anticoagulant therapy, Eliquis. SURGICAL HISTORY : Tonsillectomy. Appendectomy. Bilateral hip surgeries x4. Bilateral hip replacement. Blood transfusion s. ENCOUNTER: Subsequent ACUITY: 1 week PAIN SCORE: 4/10 LOCATION: Right leg. TECHNIQUE: Venous ultrasound of the leg was performed from the inguinal ligament to the proximal calf. Real-manolo e, color Doppler and spectral tracing, compression and augmentation techniques were used. FINDINGS: There is normal compressibility of the deep venous system from the inguinal region to the proximal ca lf. No echogenic clot is seen in the lumen of the common femoral, femoral, popliteal, and posterior tibial veins. There is a normal response of the venous system to proximal and distal augmentation an d respiration. CONCLUSION: 1. Negative exam. No sonographic or Doppler findings of deep venous thrombosis. 2. No change from prior. Russ Morrison MD on November 10, 2017 at 8:16 Board Certified Radiologist. This report was verified electronically.
[2017-11-10 10:20] VITALS: PULSE 90
[2017-11-10 11:25] VITALS: BP 124/79; PULSE 82; RESP 16; TEMP 97.6; O2SAT 99
--- NOTE | 2017-11-11 08:02 | MH ---
cc: John Ewing MD DATE OF ADMISSION: 11/10/2017 ADMISSION DIAGNOSIS: Cataract right eye. HISTORY OF PRESENT ILLNESS: This 52-year-old white male is coming through [facility] for the purpose of a lens extraction of the right eye with intraocular lens implant under general anesthesia. He has noticed decreasing visual acuity interfering with his daily activities and elected to have the above procedure. He had a similar procedure on the left eye a month ago and has done well postoperatively. Now he requests cataract surgery for his right eye. His best corrected visual acuity is 20/40 minus 2 in the right eye in room light and 20/25 minus in the left. He is requesting general anesthesia due to his inability to lie flat for any extended period of time due to his COPD and asthma. PAST MEDICAL HISTORY: The patient has a history of: 1. Hypertension. 2. Diabetes. 3. Chronic obstructive pulmonary disease. 4. Asthma. 5. Blood clots in the lung and legs for two years. 6. Tachycardia. 7. Denying prostate hypertrophy. PAST SURGICAL HISTORY: Includes: 1. Appendectomy. 2. Seven hip surgeries. 3. The above mentioned cataract surgery in his left eye a month ago. MEDICATIONS: His daily medications include: 1. Metformin. 2. Singulair. 3. 5 mg of prednisone. 4. Lipitor. 5. Lasix. 6. Potassium. 7. Blood pressure medication. 8. Iron. 9. Eliquis. 10. He has been on Flomax for 6 months. ALLERGIES: THE PATIENT IS ALLERGIC TO DEMEROL AND TETRACYCLINE. SOCIAL HISTORY: He does not smoke or drink. FAMILY HISTORY: Positive for cataract in family members. REVIEW OF SYSTEMS: HEAD: Patient denies severe headaches, dizziness or recent head injury. EARS: Patient denies hearing loss, ear pain, discharge or ringing in the ears. NOSE: Patient denies nasal discharge, obstruction or frequent colds. MOUTH AND THROAT: Patient denies soreness of the mouth or tongue, bleeding gums, trouble swallowing, changes in voice or sore throat. NECK: Patient denies neck pain or swelling, limitation of neck movement or neck injury. CARDIOPULMONARY SYSTEM: Due to his COPD and asthma, he has some shortness of breath and difficulty lying for a while and some shortness of breath at night. He also has wheezing. Patient denies orthopnea, chronic cough, sputum production, hemoptysis, chest pain, palpitations or light-headedness. GI SYSTEM: Patient denies poor appetite, nausea, vomiting, abdominal pain, ulcers, hemorrhoids or change in bowel habits. SYSTEM: The patient has urinary frequency day and night. No change in urine color. NERVOUS SYSTEM: Patient denies convulsions, vertigo, stroke, numbness or weakness. PHYSICAL EXAMINATION: VITAL SIGNS: Blood pressure is 128/78, pulse 126, respirations 20. HEAD: Normocephalic, atraumatic. NOSE: Without rhinorrhea. THROAT: Clear. NECK: Supple. CHEST: Clear. HEART: Regular rhythm, but tachycardia. ABDOMEN: Without tenderness. EXTREMITIES: With right ankle edema. NEUROLOGIC: Within normal limits. MENTAL STATUS: Within normal limits. EYE EXAM: The patient's best corrected visual acuity in room light is 20/40 minus 2 in the right eye and 20/25 minus in the left. Visual fair are full to confrontation testing. Extraocular muscle exam reveals full versions with orthophoria in the distance and exophoria at near. Pupils are 3 mm, equal, round, and reactive to light without afferent defect. The anterior segment examination reveals pingueculae in the conjunctivae. There is a 2+ posterior subcapsular cataract in the right eye and a posterior chamber intraocular lens in place in the left. The intraocular pressure is 17 in each eye by applanation tonometry. Dilated fundus examination reveals sharp disks with cup-to-disk ratio of 0.3 bilaterally. The macula is clear and the background is within normal limits. IMPRESSION: 1. Cataract right eye. 2. Pseudophakia left eye. 3. Pingueculae. PLAN: Lens extraction of the right eye with intraocular lens implant under general anesthesia through [facility]. The patient has been cleared medically. He has been counseled as to the risks, benefits and alternatives and elected to proceed. I feel that cataract surgery will improve the quality of life and activities of daily living in this patient. John Ewing MD [employer]/DL/ , 12:42 PM , 01:20 PM
--- NOTE | 2017-11-11 09:50 | MP ---
cc: John Ewing MD DATE OF OPERATION: 11/10/2017 POSTOPERATIVE DIAGNOSIS: Cataract right eye. OPERATION: Extracapsular cataract extraction with posterior chamber intraocular lens implant by phacoemulsification, right eye. SURGEON: John Ewing M.D. ANESTHESIA: General. COMPLICATIONS: None. INDICATIONS: See history and physical previously dictated. OPERATIVE PROCEDURE The patient had adequate retrobulbar and eyelid blocks administered in the holding area and was brought to the operating room. The right eye was prepped and draped in the usual sterile ophthalmic manner. A lid speculum was inserted in the right eye. A 4-0 silk bridle suture was placed through the conjunctiva near the superior rectus muscle and it was tagged to the drape. A fornix-based conjunctival flap was prepared spanning approximately 5 mm in width. Hemostasis was obtained with wet-field cautery. A 3.5 mm groove was made 1 mm from the limbus and dissected up to the limbus in the form of a scleral pocket incision. A stab incision was then made at the 2 o'clock position. Viscoelastic was injected into the anterior chamber. The anterior chamber was entered with a 2.75 mm keratome through the scleral pocket incision. A 360 degree cotinuous curvilinear capsulorrhexis was then performed. Hydrodissection was utilized to divide the nucleus into inner and outer components and to separate the cortex from the capsule. Phacoemulsification was then utilized to remove the nucleus. The outer nuclear layer was removed with irrigation and aspiration and short bursts of ultrasound as necessary. The cortex was removed with the irrigation/aspiration handpiece. The posterior capsule was polished with the capsule polisher. Viscoelastic was injected into the capsular bag. The intraocular lens was inspected and found to be in good condition. The lens utilized was an Roland, model number SA60AT with a power of +19 diopters. The lens was inserted into the capsular bag. The viscoelastic in the anterior chamber was then removed with the irrigation-aspiration handpiece. Viscoelastic was also removed from beneath the intraocular lens. The anterior chamber was filled with Miochol-E through the stab incision and pressurized. The wound was checked for leaks at this pressure and normalized pressure and there were none. The 4-0 bridle suture was removed. The conjunctival flap was brought down over the wound and secured with cautery. Pilocarpine 2% eye drops were instilled topically. The lid speculum was removed. TobraDex ophthalmic ointment was applied. The eye was double patched and shielded. The patient tolerated the procedure well and left the Operating Room in satisfactory condition. JohnMD DAVID Mac/MARÍA , 10:20 AM , 10:39 AM
== END | disposition home or self-care (01) ==
LOC: PHSDC 06:07
PROVIDERS: ATTEND Ophthalmology
DX: H26.9 Unspecified cataract (principal); M79.89 Other specified soft tissue disorders
CPT/HCPCS: 00142; 66984; 93971; J0171; J2405; J3010; J7040; J7613; V2632

== ENCOUNTER 2017-11-17 08:19 | Inpatient (IN) | payer BC ==
[~2017-11-17] VITALS: Ht 175.3 cm; Wt 101.6 kg
[2017-11-17] VITALS (14 sets, daily range): BP systolic 139–165; BP diastolic 78–90; PULSE 72–108; RESP 15–34; TEMP 97.7–97.9; O2SAT 35–97
[~2017-11-17 08:19] MED LIST changes: -ACETYLCHOLINE CHL OPHT SOLN 1:100 2 ML VIAL ONE; -CHLORHEXIDINE GLUCONATE 2 % 1 PACK (2 CLOTHS) TOPICAL PRN; -CYCLOPENTOLATE HCL 1% OPHT SOLN 2 ML BTL ONE; -DICLOFENAC SOD 0.1% OPHT SOLN 2.5 ML BTL ONE; -EPINEPHrine HCL PF/SF (1:1000) 1 MG/ML AMP I-OCULAR ONE; -GATIFLOXACIN 0.5% OPHT SOLN 2.5 ML BTL ONE; -LACTATED RINGER'S 1000 ML IV PRN; -LIDOCAINE HCL 1% PF 5 ML SYRINGE OTHER ONE; -METOPROLOL TARTRATE 25 MG TAB PO PRN; -ONDANSETRON HCL 4 MG/2 ML VIAL ONE; -PHENYLEPHRINE HCL 2.5% OPTH SOLN 2 ML BTL ONE; -PILOCARPINE HCL 2% OPHT SOLN 15 ML BTL ONE; -POVIDONE IODINE 5% (ANTISEPSIS KIT) 4 APPLICATIONS EACH NARE PRN; -PROPARACAINE HCL 0.5% OPHT SOLN 15 ML BTL ONE; -PROPARACAINE HCL 0.5% OPHT SOLN 15 ML BTL RIGHT EYE ONE; -PROPOFOL 200 MG/20 ML AMP IV ONE; -RESP: ALBUTEROL 2.5 MG/3 ML NEB (SCH) ONE; -SODIUM CHLORID 0.9% 500 ML IV PRN; -TETRACAINE 0.5% OPTH SOLN 4 ML BTL ONE; -TOBRAMYCIN/DEXAMETHASONE OPTH OINT 3.5 GM TUBE ONE; -TROPICAMIDE 1% OPHT SOLN 15 ML BTL ONE; -VISCOAT OPHT IRRIG SOLN 0.75 ML SYRINGE ONE; -acetaZOLAMIDE SEQUELS 500 MG SUSTAINED RELEASE CAP ONE
[2017-11-17] MEDS ORDERED: RESP: ALBUTEROL 2.5 MG/IPRATROPIUM 0.5 MG NEB (SCH) ONE (08:33)
[2017-11-17] MEDS ORDERED: SODIUM CHLORIDE 0.9% FLUSH 10 ML FLUSH IVF PRN (08:45)
[2017-11-17] MEDS ORDERED: methylPREDNISolone SOD SUCC 125 MG/2 ML VIAL IV PUSH ONE (08:45)
[2017-11-17] MEDS ORDERED: RESP: ALBUTEROL 2.5 MG/IPRATROPIUM 0.5 MG NEB (SCH) INH (08:45)
--- NOTE | 2017-11-17 08:49 | RADRPT ---
EXAM DATE/TIME: 11/17/2017 08:39 [facility] COMPARISON: CHEST SINGLE AP, August 25, 2017, 10:15. INDICATIONS : Short of breath. Wheezing. Cough. MEDICAL HISTORY : Cardiovascular disease. Hypertension Deep venous thrombosis. Diabetes. COPD. Asthma. SURGICAL HISTORY : Appendectomy. ENCOUNTER: Initial ACUITY: 1 week PAIN SCORE: 1/10 LOCATION: Bilateral chest FINDINGS: No new focal pleural or parenchymal opacities. Cardiomediastinal contours are within normal limits. B elin thorax is intact. CONCLUSION: 1. No acute abnormality or significant interval change. Paul Galarza MD on November 17, 2017 at 8:46 Board Certified Radiologist. This report was verified electronically.
--- NOTE | 2017-11-17 09:00 | PD ---
HPI Chief Complaint: Respiratory Distress Time Seen by Provider: 08:24 Travel History International Travel<30 days: No Contact w/Intl Traveler<30days: No Traveled to known affect area: No History of Present Illness HPI The patient is a 52-year-old male who presents to the emergency department shortness of breath. The patient is a 1 week history of increasing shortness of breath with productive cough. He denies any chest pain. He does have a history of asthma, denies any history of tobacco use. He is followed by software publisher, Dr. Ivette Steele. He also has a history of previous pulmonary embolism diagnosed in 2016. The patient is currently anticoagulated with Eliquis. The patient did recently stop Eliquis for cataract surgery, is currently back on Eliquis and had an outpatient ultrasound of the lower extremities that was negative for DVT. He does complain of chest tightness and wheezing. He is currently on prednisone 10 mg orally and has been using nebulizers at home with minimal relief of his symptoms. The patient's primary physician is Dr. Myron Woodward, and the patient's substitute crossing guard is Dr. Moody. The patient denies any current chest pain, nausea, vomiting, abdominal pain, or fever. Symptoms are moderate. PFSH Past Medical History Hx Anticoagulant Therapy: Yes (eliquis) Arthritis: Yes Asthma: Yes Autoimmune Disease: No Blood Disorders: No Anxiety: Yes Depression: No Heart Rhythm Problems: Yes (sinus tachycardia) Cancer: No Cardiovascular Problems: Yes (PT REPORTS TACHYCARDIA) High Cholesterol: Yes Chemotherapy: No Chest Pain: No Congestive Heart Failure: No COPD: Yes Cerebrovascular Accident: No Diabetes: Yes (NIDDM) Patient Takes Glucophage: Yes Diminished Hearing: No Deep Vein Thrombosis: Yes (DECEMBER 2015: RIGHT LEG WITH PULMONARY EMBOLISM X2) Endocrine: Yes Gastrointestinal Disorders: Yes (GERD) GERD: Yes Genitourinary: No Headaches: No Hepatitis: No Hiatal Hernia: No Heparin Induced Thrombocytopen: No Hypertension: Yes Immune Disorder: No Implanted Vascular Access Dvce: Yes Kidney Stones: No Musculoskeletal: Yes (HIP SURGERIES, ARTHRITIS) Neurologic: No Psychiatric: Yes (ANXIETY) Reproductive: Yes (BPH) Respiratory: Yes (COPD, asthma, PE) Migraines: No Myocardial Infarction: Yes Pneumonia: Yes (NOVEMBER 2015) Radiation Therapy: No Renal Failure: No Seizures: No Sickle Cell Disease: No Sleep Apnea: No Thyroid Disease: No Ulcer: No Influenza Vaccination: Yes Past Surgical History Abdominal Surgery: No AICD: No Appendectomy: Yes Arteriovenous Shunt: No Cardiac Surgery: No Endocrine Surgery: No Eye Surgery: Yes (cataract surgery, lens inplants) Genitourinary Surgery: Yes (appendectomy) Gynecologic Surgery: No Insulin Pump: No Joint Replacement: Yes (RIGHT HIP REPLACEMENT) Neurologic Surgery: No Oral Surgery: Yes (TONSILLECTOMY) Pacemaker: No Thoracic Surgery: No Tonsillectomy: Yes Other Surgery: Yes (HIPS, APPENDIX, TONSILS) Social History Alcohol Use: No Tobacco Use: No Substance Use: No Allergies-Medications (Allergen,Severity, Reaction): Coded Allergies: doxycycline (Unverified Allergy, Severe, throat swells, 11/17/17) minocycline (Unverified Allergy, Severe, throat swells, 11/17/17) tetracycline (Verified Allergy, Severe, Anaphylaxis, 11/17/17) tigecycline (Unverified Allergy, Severe, throat swells, 11/17/17) meperidine (Unverified Allergy, Intermediate, hallucinations, 11/17/17) Reported Meds & Prescriptions Reported Meds & Active Scripts Active Proventil Hfa 6.7 GM Inh (Albuterol Sulfate) 90 Mcg/Act Aer 2 Puff INH Q4-6H PRN Potassium Chloride ER (Potassium Chloride) 20 Meq Tab 20 Meq PO BID Flomax (Tamsulosin HCl) 0.4 Mg Cap 0.4 Mg PO DAILY Glucophage (Metformin HCl) 500 Mg Tab 500 Mg PO BIDPC Ferosul (Ferrous Sulfate) 325 Mg Tablet 325 Mg PO BID Furosemide 40 Mg Tab 40 Mg PO DAILY Eliquis (Apixaban) 5 Mg Tab 5 Mg PO BID Ativan (Lorazepam) 0.5 Mg Tab 0.5 Mg PO BID Reported Prednisone 10 Mg Tab 10 Mg PO BID Prednisone 50 Mg Tab 10 Mg PO DAILY Omeprazole 40 Mg Cap 40 Mg PO HS Matzim LA (Diltiazem ER 24 HR) 360 Mg Can 360 Mg PO DAILY Symbicort Inh (Budesonide/Formoterol Fumarate) 160-4.5 Mcg/Act Aero 2 Puff INH Q12HR Singulair (Montelukast Sodium) 10 Mg Tab 10 Mg PO HS Lipitor (Atorvastatin Calcium) 20 Mg Tab 20 Mg PO HS Levalbuterol Neb (Levalbuterol HCl) 1.25 Mg/3 Ml Neb 1.25 Mg NEB BID PRN Review of Systems Except as stated in HPI: all other systems reviewed are Neg General / Constitutional: No: Fever HENT: No: Lightheadedness Cardiovascular: No: Chest Pain or Discomfort Respiratory: Positive: Cough, Shortness of Breath, Wheezing Gastrointestinal: No: Nausea, Vomiting Musculoskeletal: Positive: Edema Neurologic: No: Dizziness Physical Exam Narrative GENERAL: Awake, alert, 52-year-old male appears his stated age and is in moderate respiratory distress. SKIN: Focused skin assessment warm/dry. HEAD: Atraumatic. Normocephalic. EYES: Pupils equal and round. No scleral icterus. No injection or drainage. ENT: No nasal bleeding or discharge. Mucous membranes pink and moist. NECK: Trachea midline. No JVD. CARDIOVASCULAR: Regular rate and rhythm. No murmur appreciated. Heart rate in the 90s. RESPIRATORY: Tachypnea with visible retractions. Respiratory rate 34. Diminished breath sounds throughout with prolonged expiratory phase and diffuse wheezing. GASTROINTESTINAL: Abdomen soft, non-tender, nondistended. H no rebound tenderness. MUSCULOSKELETAL: No obvious deformities. No clubbing. No cyanosis. Superficial varicosities the right lower extremity noted. Mild edema noted. NEUROLOGICAL: Awake and alert. No obvious cranial nerve deficits. Motor grossly within normal limits. Normal speech. PSYCHIATRIC: Appropriate mood and affect; insight and judgment normal. Data Data Last Documented VS Vital Signs Date Time Temp Pulse Resp B/P (MAP) Pulse Ox O2 Delivery O2 Flow Rate FiO2 11/17/17 09:05 35 11/17/17 08:45 Nasal Cannula 2.00 11/17/17 08:27 97.9 98 34 150/90 (110) Orders Orders Albuterol-Ipratropium Neb (Duoneb Neb) (11/17/17 08:33) Complete Blood Count With Diff (11/17/17 08:33) Comprehensive Metabolic Panel (11/17/17 08:33) B-Type Natriuretic Peptide (11/17/17 08:33) Act Partial Throm Time (Ptt) (11/17/17 08:33) Prothrombin Time / Inr (Pt) (11/17/17 08:33) Magnesium (Mg) (11/17/17 08:33) Ckmb (Isoenzyme) Profile (11/17/17 08:33) Troponin I (11/17/17 08:33) Influenzae A/B Antigen (11/17/17 08:33) Blood Culture (11/17/17 08:33) Iv Access Insert/Monitor (11/17/17 08:33) Electrocardiogram (11/17/17 08:33) Ecg Monitoring (11/17/17 08:33) Oximetry (11/17/17 08:33) Oxygen Administration (11/17/17 08:33) Chest, Single Ap (11/17/17 08:33) Sodium Chloride 0.9% Flush (Ns Flush) (11/17/17 08:45) Methylprednisolone So Succ Inj (Solumedr (11/17/17 08:45) Albuterol-Ipratropium Neb (Duoneb Neb) (11/17/17 08:45) Resp Bipap / Cpap Non Invas Vt (11/17/17 08:33) Admit To Inpatient (11/17/17 ) Vital Signs (Adult) Q4H (11/17/17 09:23) Activity Oob Ad Libertad (11/17/17 09:23) Bedside Glucose COLBY.CSUGAR (11/17/17 09:23) Android [employer]os Developer / Telemetry .CONTINUOUS (11/17/17 09:23) Intake + Output COLBY.QSHIFT (11/17/17 09:23) Diet 1800 Ada Cons Carb (11/17/17 Breakfast) Diet Heart Healthy (11/17/17 Breakfast) Sodium Chloride 0.9% Flush (Ns Flush) (11/17/17 09:30) Sodium Chloride 0.9% Flush (Ns Flush) (11/17/17 09:30) Acetaminophen (Tylenol) (11/17/17 09:30) Ondansetron Inj (Zofran Inj) (11/17/17 09:30) Comprehensive Metabolic Panel (11/18/17 06:00) Complete Blood Count With Diff (11/18/17 06:00) Resp Oxygen Layton C Titrat 1-4 L (11/17/17 ) Naloxone Inj (Narcan Inj) (11/17/17 09:30) Docusate Sodium-Senna (Clare-Colace) (11/17/17 09:30) Magnesium Hydroxide Liq (Milk Of Magnesi (11/17/17 09:30) Sennosides (Senokot) (11/17/17 09:30) Bisacodyl Supp (Dulcolax Supp) (11/17/17 09:30) Lactulose Liq (Lactulose Liq) (11/17/17 09:30) Inpatient Certification (11/17/17 ) Apixaban (Eliquis) (11/17/17 09:30) Atorvastatin (Lipitor) (11/17/17 21:00) Budeson-Formot 160-4.5 Mcg Inh (Symbicor (11/17/17 11:00) Diltiazem Cd (Cardizem Cd) (11/17/17 11:00) Ferrous Sulfate (Ferrous Sulfate) (11/17/17 09:30) Furosemide (Lasix) (11/17/17 09:30) Lorazepam (Ativan) (11/17/17 09:30) Metformin (Glucophage) (11/17/17 09:30) Montelukast (Singulair) (11/17/17 21:00) Potassium Chloride (Kcl) (11/17/17 09:30) Tamsulosin (Flomax) (11/17/17 09:30) (Nf) Levalbuterol Neb (11/17/17 09:30) (Nf) Omeprazole (11/17/17 21:00) CKMB (11/17/17 08:27) CKMB% (11/17/17 08:27) Consult Cardiology (11/17/17 ) Consult Pulmonology (11/17/17 ) Methylprednisolone So Succ Inj (Solumedr (11/17/17 10:00) Azithromycin Inj (Zithromax Inj) (11/17/17 10:00) Albuterol-Ipratropium Neb (Duoneb Neb) (11/17/17 12:00) Cefepime Inj (Maxipime Inj) (11/17/17 10:15) Furosemide Inj (Lasix Inj) (11/17/17 18:00) (Hub Use Only)Inp Phy Cons/Ref (11/17/17 ) Admit Order (Ed Use Only) (11/17/17 10:06) Labs Laboratory Tests Test 11/17/17 08:27 White Blood Count 11.0 TH/MM3 Red Blood Count 4.88 MIL/MM3 Hemoglobin 14.3 GM/DL Hematocrit 42.2 % Mean Corpuscular Volume 86.6 FL Mean Corpuscular Hemoglobin 29.3 PG Mean Corpuscular Hemoglobin Concent 33.8 % Red Cell Distribution Width 15.5 % Platelet Count 315 TH/MM3 Mean Platelet Volume 7.3 FL Neutrophils (%) (Auto) 81.6 % Lymphocytes (%) (Auto) 12.0 % Monocytes (%) (Auto) 6.3 % Eosinophils (%) (Auto) 0.1 % Basophils (%) (Auto) 0.0 % Neutrophils # (Auto) 9.0 TH/MM3 Lymphocytes # (Auto) 1.3 TH/MM3 Monocytes # (Auto) 0.7 TH/MM3 Eosinophils # (Auto) 0.0 TH/MM3 Basophils # (Auto) 0.0 TH/MM3 CBC Comment AUTO DIFF Prothrombin Time 10.6 SEC Prothromb Time International Ratio 1.0 RATIO Activated Partial Thromboplast Time 24.4 SEC Blood Urea Nitrogen 18 MG/DL Creatinine 1.00 MG/DL Random Glucose 122 MG/DL Total Protein 6.8 GM/DL Albumin 4.2 GM/DL Calcium Level 9.4 MG/DL Magnesium Level 2.2 MG/DL Alkaline Phosphatase 127 U/L Aspartate Amino Transf (AST/SGOT) 20 U/L Alanine Aminotransferase (ALT/SGPT) 62 U/L Total Bilirubin 0.4 MG/DL Sodium Level 139 MEQ/L Potassium Level 3.6 MEQ/L Chloride Level 105 MEQ/L Carbon Dioxide Level 21.8 MEQ/L Anion Gap 12 MEQ/L Estimat Glomerular Filtration Rate 78 ML/MIN Total Creatine Kinase 130 U/L Creatine Kinase MB 4.2 NG/ML Troponin I LESS THAN 0.02 NG/ML MDM Medical Decision Making Medical Screen Exam Complete: Yes Emergency Medical Condition: Yes Medical Record Reviewed: Yes Interpretation(s) EKG reveals normal sinus rhythm with a rate of 93. Left ventricular hypertrophy. Inverted T-wave in lead III. Last Impressions Chest X-Ray 11/17/1733 Signed Impressions: Service Date/Time: Friday, November 17, 2017 08:39 - CONCLUSION: 1. No acute abnormality or significant interval change. Paul Galarza MD Laboratory Tests Test 11/17/17 08:27 White Blood Count 11.0 TH/MM3 Red Blood Count 4.88 MIL/MM3 Hemoglobin 14.3 GM/DL Hematocrit 42.2 % Mean Corpuscular Volume 86.6 FL Mean Corpuscular Hemoglobin 29.3 PG Mean Corpuscular Hemoglobin Concent 33.8 % Red Cell Distribution Width 15.5 % Platelet Count 315 TH/MM3 Mean Platelet Volume 7.3 FL Neutrophils (%) (Auto) 81.6 % Lymphocytes (%) (Auto) 12.0 % Monocytes (%) (Auto) 6.3 % Eosinophils (%) (Auto) 0.1 % Basophils (%) (Auto) 0.0 % Neutrophils # (Auto) 9.0 TH/MM3 Lymphocytes # (Auto) 1.3 TH/MM3 Monocytes # (Auto) 0.7 TH/MM3 Eosinophils # (Auto) 0.0 TH/MM3 Basophils # (Auto) 0.0 TH/MM3 CBC Comment AUTO DIFF Prothrombin Time 10.6 SEC Prothromb Time International Ratio 1.0 RATIO Activated Partial Thromboplast Time 24.4 SEC Blood Urea Nitrogen 18 MG/DL Creatinine 1.00 MG/DL Random Glucose 122 MG/DL Total Protein 6.8 GM/DL Albumin 4.2 GM/DL Calcium Level 9.4 MG/DL Magnesium Level 2.2 MG/DL Alkaline Phosphatase 127 U/L Aspartate Amino Transf (AST/SGOT) 20 U/L Alanine Aminotransferase (ALT/SGPT) 62 U/L Total Bilirubin 0.4 MG/DL Sodium Level 139 MEQ/L Potassium Level 3.6 MEQ/L Chloride Level 105 MEQ/L Carbon Dioxide Level 21.8 MEQ/L Anion Gap 12 MEQ/L Estimat Glomerular Filtration Rate 78 ML/MIN Total Creatine Kinase 130 U/L Creatine Kinase MB 4.2 NG/ML Troponin I LESS THAN 0.02 NG/ML Differential Diagnosis Differential diagnosis includes asthma exacerbation, COPD exacerbation, reactive airway disease, pneumonia, influenza, pulmonary embolism, pulmonary edema, congestive heart failure, pleural effusion. Narrative Course IV was established, labs are drawn and sent, the patient was placed on cardiac telemetry monitoring and continuous pulse oximetry monitoring. The patient was administered Solu-Medrol 125 mg intravenously and duo nebs 3. The patient was placed on BiPAP 12/5 is 60%. The patient is currently on Eliquis for history of pulmonary embolism. He states he was recently off Eliquis for cataract surgery, however, is currently on his Eliquis and had an outpatient ultrasound of the lower extremities that was negative for DVT. Chest x-ray was unremarkable. Troponin is unremarkable. The patient's symptoms did improve with BiPAP. I discussed the patient with Dr. Woodward who agrees with admission, patient will be admitted to [facility] as he is on BiPAP. He has failed outpatient therapy with his outpatient prednisone and nebulizers. Critical Care Narrative Aggregate critical care time was 35 minutes. Time to perform other separately billable procedures was not included in the critical care time. My time did not include minutes spent treating any other patients simultaneously or on activities that did not directly contribute to the patient's treatment. The services I provided to this patient were to treat and/or prevent clinically significant deterioration that could result in: Anoxia, hypoxia, respiratory failure. I provided critical care services requiring my management, as noted below: Chart data review, documentation time, medication orders and management, vital sign assessments/reviewing monitor data, ordering and reviewing lab tests, ordering and interpreting/reviewing x-rays and diagnostic studies, care of the patient and discussion of the patient with the admitting physicians. Physician Communication Physician Communication I discussed the patient with Dr. Woodward who agrees with admission. Diagnosis Primary Impression: Acute asthma exacerbation Qualified Codes: J45.901 - Unspecified asthma with (acute) exacerbation Admitting Information Admitting Physician Requests: Admit Condition: Stable Kaleb Swanson MD Nov 17, 2017 09:00
[2017-11-17 09:29] LABS: EOSINOPHIL % 0.1 % (0.0-4.0); HEMATOCRIT 42.2 % (39.0-51.0); HEMOGLOBIN 14.3 GM/DL (13.0-17.0); LYMPHOCYTE # 1.3 TH/MM3 (1.0-4.8); MEAN CELL VOLUME 86.6 FL (80.0-100.0); MEAN CORPUSCULAR HEMOGLOBIN 29.3 PG (27.0-34.0); MEAN CORPUSCULAR HGB CONC 33.8 % (32.0-36.0); MEAN PLATELET VOLUME 7.3 FL (7.0-11.0); MONO % 6.3 % (0.0-8.0); MONOCYTE # 0.7 TH/MM3 (0-0.9); NEUT % 81.6 % (16.0-70.0); PLATELET COUNT 315 TH/MM3 (150-450); RED BLOOD COUNT 4.88 MIL/MM3 (4.50-5.90); RED CELL DISTRIBUTION WIDTH 15.5 % (11.6-17.2)
[2017-11-17] MEDS ORDERED: SODIUM CHLORIDE 0.9% FLUSH 10 ML FLUSH IV FLUSH PRN (09:30)
[2017-11-17] MEDS ORDERED: LACTULOSE SYRUP 20 GM/30 ML CUP PO PRN (09:30)
[2017-11-17] MEDS: APIXABAN 5 MG TABLET PO SCH ×2 (09:30→21:23)
[2017-11-17] MEDS ORDERED: FUROSEMIDE 40 MG TAB PO SCH (09:30)
[2017-11-17] MEDS ORDERED: SENNOSIDES 8.6 MG TAB PO PRN (09:30)
[2017-11-17] MEDS: FERROUS SULFATE 325 MG (65 MG ELEMENTAL IRON) TAB PO SCH ×2 (09:30→21:23)
[2017-11-17] MEDS ORDERED: NALOXONE HCL 0.4 MG/ML AMP IV PUSH PRN (09:30)
[2017-11-17] MEDS ORDERED: ONDANSETRON HCL 4 MG/2 ML VIAL IVP PRN (09:30)
[2017-11-17] MEDS ORDERED: BISACODYL 10 MG SUPP RECTAL PRN (09:30)
[2017-11-17] MEDS: metFORMIN HCL 500 MG TAB PO SCH ×2 (09:30→17:45)
[2017-11-17] MEDS: SODIUM CHLORIDE 0.9% FLUSH 10 ML FLUSH IV FLUSH SCH ×2 (09:30→21:24)
[2017-11-17] MEDS ORDERED: ACETAMINOPHEN 325 MG TAB PO PRN (09:30)
[2017-11-17] MEDS ORDERED: MAGNESIUM HYDROXIDE SUSP 30 ML CUP PO PRN (09:30)
[2017-11-17 09:41] LABS: ALBUMIN 4.2 GM/DL (3.4-5.0); AST (GOT) 20 U/L (15-37); BICARBONATE 21.8 MEQ/L (21.0-32.0); BLOOD UREA NITROGEN 18 MG/DL (7-18); CALCIUM 9.4 MG/DL (8.5-10.1); CHLORIDE 105 MEQ/L (98-107); GLOMERULAR FILTRATION RATE 78 ML/MIN (>89); GLUCOSE,RANDOM 122 MG/DL (74-106); MAGNESIUM 2.2 MG/DL (1.5-2.5); SODIUM (NA) 139 MEQ/L (136-145)
[2017-11-17 09:42] LABS: PROTHROMBIN TIME - PATIENT 10.6 SEC (9.8-11.6)
[2017-11-17 09:47] LABS: ALKALINE PHOSPHATASE 127 U/L (45-117); ALT (GPT) 62 U/L (12-78); TOTAL BILIRUBIN ADULT 0.4 MG/DL (0.2-1.0); TOTAL PROTEIN 6.8 GM/DL (6.4-8.2); TROPONIN I LESS THAN 0.02 NG/ML (0.02-0.05)
[2017-11-17] MEDS: methylPREDNISolone SOD SUCC 125 MG/2 ML VIAL IV PUSH SCH ×3 (10:51→21:26)
[2017-11-17] MEDS: TAMSULOSIN HCL 0.4 MG CAP PO SCH (10:51)
[2017-11-17] MEDS: POTASSIUM CHLORIDE 20 MEQ CONTROLLED RELEASE TAB PO SCH ×2 (10:52→21:23)
[2017-11-17] MEDS: DILTIAZEM-CD 180 MG CAP ER PO SCH (10:52)
[2017-11-17] MEDS: BUDESONIDE-FORMOTEROL 160/4.5 MCG INHALER INH SCH ×2 (11:19→21:26)
[2017-11-17] MEDS: LORazepam 0.5 MG TAB PO SCH ×2 (11:19→21:22)
[2017-11-17] MEDS: CEFEPIME INJ 1,000 MG in SODIUM CHLORIDE 0.9% INJ 100 ML IV SCH ×2 (11:19→21:50)
[2017-11-17] MEDS ORDERED: DEXTROSE 50% IN WATER 50 ML VIAL(D50) IV PUSH PRN (11:30)
[2017-11-17] MEDS ORDERED: GLUCAGON 1 MG/ML VIAL OTHER PRN (11:30)
[2017-11-17] MEDS: DOCUSATE SODIUM 50 MG/SENNA 8.6 MG TAB PO SCH ×2 (11:33→21:23)
--- NOTE | 2017-11-17 11:43 | MH ---
cc: Myron Woodward MD DATE OF ADMISSION: 11/17/2017 CHIEF COMPLAINT: Shortness of breath, cough, wheezing. HISTORY OF PRESENT ILLNESS: This is a 52-year-old very pleasant male, is my patient at my office, very pleasant man with a past medical and surgical history significant for DVT of the right lower leg and pulmonary embolism in the past, is on Eliquis, history of arthritis, severe asthma, COPD, anxiety, sinus tachycardia, history of BPH, cataract surgery recently and he had history GERD, anxiety, depression. He had pneumonia. He had multiple hospital admissions in the past with intubation, and he had appendectomy, right hip replacement, left hip replacement, tonsillectomy. Came to the ER at [facility] complaining of cough, congestion, shortness of breath. He was seen at my office yesterday, and he has severe wheezing, and I advised him to go to the ER if condition worsened, his congestion got worse, and he decided to go to [facility]. Patient is on BiPAP right now, and I discussed the condition with the patient as well as the , and he does not smoke or drink. His manager math, Dr. Hernandez, diagnosed pulmonary embolism in 2005, and he is seen by Dr. Reuben Cali, hematology oncology. He has right leg swelling, had multiple venous Doppler done, shows no DVT. He is already referred for Dr. Baldwin. Patient is on BiPAP and severely short of breath. Pulmonology and Cardiology, consulted and other than that, nothing significant. PAST MEDICAL AND SURGICAL HISTORY: As dictated above. SOCIAL HISTORY: Does not smoke, drink or take any drugs. Lives at home with . He is and unemployed. ALLERGIES: TO DOXYCYCLINE, MINOCYCLINE, TETRACYCLINE, TIGECYCLINE, MEPERIDINE. MEDICATIONS: Include Proventil HFA 6.7 g 2 puff inhalation q.4 to 6 hour, potassium chloride 20 mEq p.o. b.i.d., Flomax 0.4 mg p.o. daily, Glucophage 500 mg p.o. b.i.d., ferrous sulfate 325 mg p.o. b.i.d., furosemide 40 mg p.o. daily, Eliquis 5 mg twice a day, Ativan 0.5 mg twice a day, omeprazole 40 mg p.o. daily, diltiazem 360 mg p.o. daily LA, Symbicort inhaler 160/4.5 two puff inhalation q.12 hours, Singulair 10 mg at bedtime, Lipitor 20 mg p.o. daily. REVIEW OF SYSTEMS: Positive for severe shortness of breath, cough, wheezing and patient is on BiPAP. Right leg swelling. PHYSICAL EXAMINATION: This is 52-year-old male in moderate to severe respiratory distress, on BiPAP. VITAL SIGNS: Temperature 97.9, heart rate 98, respiration 34, blood pressure 150/90, O2 saturation 95% on BiPAP. HEENT: Normocephalic, atraumatic. EOMI. PERRL. Oral mucosa: Patient on BiPAP. NECK: Supple. No carotid bruit. No visible thyromegaly or neck mass. Trachea central. CARDIOVASCULAR SYSTEM: Regular rate and rhythm. Tachycardic. RESPIRATORY: Bilateral wheezing and crackles and decreased air entry bilaterally. ABDOMEN: Protuberant, obese. Bowel sounds audible. Nontender. EXTREMITIES: Right leg swelling. Pitting edema bilateral lower extremity +1. Full range of motion of all extremities. No cyanosis or clubbing. NEUROLOGIC: Awake, alert, oriented x 4. No focal deficit. SKIN: Warm and dry. PSYCHIATRIC: Patient has appropriate mood and affect and normal. LABORATORIES: Includes CBC totally unremarkable except for neutrophil is 81.6, high. BMP totally unremarkable except for GFR 78, low; glucose 122, high; alkaline phosphatase 127, high. CPK-MB 4.2, high; troponin I less than 0.02. PT 10.6, INR 1.0, APTT 24.4. Blood culture done x 2 negative so far. Chest x-ray done shows no acute abdominal or significant interval change. ASSESSMENT AND PLAN: 1. This is a 52-year-old male, came to the ER, diagnosed with acute respiratory distress/acute respiratory failure, is in acute chronic obstructive pulmonary disease exacerbation. Patient is on BiPAP. Pulmonary critical care consulted. Patient also on DuoNeb nebulization every 4 hours, Solu-Medrol 80 mg IV every 8 hours and also started on Zithromax 500 mg IV daily and cefepime 1 g IV b.i.d. Further recommendation per pulmonary. 2. Chronic obstructive pulmonary disease exacerbation. Patient is on Solu-Medrol IV, IV antibiotic and DuoNeb nebulization. 3. History of hyperlipidemia. Continue with Lipitor 20 mg p.o. daily. 4. History of gastroesophageal reflux disease. Protonix 40 mg p.o. daily. 5. History of leg edema. Started on Lasix 40 mg IV b.i.d. 6. History of chronic obstructive pulmonary disease. Continue home medication. 7. History of hypertension. Continue with diltiazem 360 mg p.o. daily. 8. History of benign prostatic hypertrophy. Continue with Flomax 0.4 mg p.o. daily. 9. History of depression. Continue home medication. 10. Anxiety. Continue home medication. 11. Deep venous thrombosis and pulmonary embolism. Continue with Eliquis 5 mg twice a day. 12. History of anemia. Continue with ferrous sulfate 325 mg p.o. b.i.d. 13. Diabetes mellitus. ADA 1800 diet blood sugar. Continue with metformin 500 mg twice a day. 14. Deep venous thrombosis prophylaxis. Patient is on Eliquis 5 mg twice a day. 15. Gastrointestinal prophylaxis. Protonix 40 mg p.o. daily. 16. We are going to manage the patient on daily basis and make recommendations on daily basis. Myron Woodward MD EA/CHANDRIKA , 10:54 AM , 11:41 AM MTDD
[2017-11-17] MEDS: AZITHROMYCIN INJ 500 MG in SODIUM CHLOR 0.9% 250 ML INJ 250 ML IV SCH (13:28)
[2017-11-17] MEDS: INSULIN ASPART SUPPLEMENTAL SCALE SQ SCH ×3 (13:31→21:37)
[2017-11-17] MEDS ORDERED: PARO20TA2 PO (13:55)
[2017-11-17] MEDS ORDERED: PANT40TA3 PO (13:55)
--- NOTE | 2017-11-17 15:30 | MB ---
cc: Adam Moody MD DATE OF CONSULT: 11/17/2017 HISTORY OF PRESENT ILLNESS: Mr. Link is a 52-year-old white male with a history of severe asthma/COPD, DVT and pulmonary embolism. He had admission in the past for asthma exacerbation. He was presented to the emergency room with severe wheezing, cough, shortness of breath and congestion. He has not had any chest pain. He has had mild sinus tachycardia. He had venous Doppler done last week of the right leg which has been swollen. This has been reportedly unremarkable. PAST MEDICAL HISTORY: Positive for: 1. Right lower leg DVT. 2. Pulmonary embolism, 3. Arthritis. 4. Severe asthma/COPD. 5. Anxiety. 6. Sinus tachycardia. 7. BPH. 8. Recent cataract surgery. 9. History of gastroesophageal reflux disease. 10. Anxiety depression. 11. History of pneumonia. MEDICATIONS: 1. Lipitor. 2. Singulair. 3. Symbicort. 4. Diltiazem 360 mg per day. 5. Omeprazole. 6. Ativan. 7. Eliquis 5 mg twice per day. 8. Furosemide 40 mg per day. 9. Iron. 10. Glucophage. 11. Flomax. 12. Potassium chloride. 13. Proventil inhaler. ALLERGIES: MEPERIDINE. TIGECYCLINE. TETRACYCLINE. MINOCYCLINE. DOXYCYCLINE. SOCIAL HISTORY: The patient does not smoke. He does not drink alcohol. He is , accompanied by his . FAMILY HISTORY: Positive for heart disease in his parents. REVIEW OF SYSTEMS: Otherwise negative. PHYSICAL EXAMINATION: VITAL SIGNS: Blood pressure 150/90, pulse 90 and regular. HEENT: Negative. 2+ carotid upstrokes, no bruits. LUNGS: Diffuse bilateral wheezes, decreased breath sounds. HEART: Regular. No murmur, gallop. ABDOMEN: Soft. No bruits. EXTREMITIES: With right lower extremity edema 2+ and minimal edema on the left side. 1-2+ distal pulses. NEUROLOGICAL EXAMINATION: Grossly nonfocal. EKG Reviewed and showed sinus tachycardia, LVH by voltage. No acute changes. LABORATORY DATA: White blood cell count 11.0, hemoglobin 14.3. Potassium 3.6, creatinine 1.0, AST 20, ALT 62. Troponin less than 0.02. CK 130. DIAGNOSES: 1. Acute respiratory failure. 2. Acute exacerbation of chronic obstructive pulmonary disease/asthma. 3. History of deep venous thrombosis/pulmonary embolism. 4. Hypertension. 5. Anxiety/depression. 6. Diabetes mellitus. 7. Gastroesophageal reflux disease. 8. Dyslipidemia. DISPOSITION: Mr. Link was admitted with respiratory failure. He has COPD/asthma exacerbation. He has mild tachycardia which is likely related to his acute illness and also bronchodilators. He has not had any angina. His Lexiscan nuclear marker perfusion study in 02/2017 showed fixed inferobasal defect consistent with old myocardial infarction but no evidence of ischemia. I recommend to continue Eliquis due to his previous history of pulmonary embolism and DVT. He will be monitored on telemetry. I will follow him for Cardiology during his hospitalization. MD RACHEL Bravo/ELPIDIO , 03:13 PM , 03:28 PM PAUL
[2017-11-17] MEDS: FUROSEMIDE 40 MG/4 ML VIAL IV PUSH SCH (17:45)
[2017-11-17] MEDS: RESP: ALBUTEROL 2.5 MG/IPRATROPIUM 0.5 MG NEB (SCH) NEB ×3 (18:17→23:32)
--- NOTE | 2017-11-17 18:34 | EKG ---
Date Performed: 11/17/2017 Time Performed: 08:46:04 PTAGE: 52 years EKG: Sinus rhythm POSSIBLE LEFT VENTRICULAR HYPERTROPHY ABNORMAL ECG PREVIOUS TRACING : 08/25/2017 10.32 Since the prior tracing, there has been no significant villeda DOCTOR: Judith Baires Interpretating Date/Time 11/17/2017 18:31:44
[2017-11-17] MEDS: MONTELUKAST SODIUM 10 MG TAB PO SCH (21:23)
[2017-11-17] MEDS: PANTOPRAZOLE SOD 40 MG DELAYED RELEASE TAB PO SCH (21:23)
[2017-11-17] MEDS: ATORVASTATIN 20 MG TAB PO SCH (21:23)
[2017-11-18] VITALS (13 sets, daily range): BP systolic 129–154; BP diastolic 69–84; PULSE 76–108; RESP 18–20; TEMP 97.4–98; O2SAT 94–97
[2017-11-18] MEDS: RESP: ALBUTEROL 2.5 MG/IPRATROPIUM 0.5 MG NEB (SCH) NEB ×5 (03:30→19:29)
[2017-11-18] MEDS: methylPREDNISolone SOD SUCC 125 MG/2 ML VIAL IV PUSH SCH ×3 (05:46→23:11)
[2017-11-18 06:51] LABS: AUTOMATED NEUTROPHIL # 9.9 TH/MM3 (1.8-7.7); HEMATOCRIT 40.5 % (39.0-51.0); HEMOGLOBIN 13.6 GM/DL (13.0-17.0); LYMPH % 5.6 % (9.0-44.0); LYMPHOCYTE # 0.6 TH/MM3 (1.0-4.8); MEAN CELL VOLUME 87.5 FL (80.0-100.0); MEAN CORPUSCULAR HEMOGLOBIN 29.4 PG (27.0-34.0); MEAN CORPUSCULAR HGB CONC 33.6 % (32.0-36.0); MEAN PLATELET VOLUME 7.3 FL (7.0-11.0); MONOCYTE # 0.4 TH/MM3 (0-0.9); NEUT % 90.4 % (16.0-70.0); PLATELET COUNT 316 TH/MM3 (150-450); RED BLOOD COUNT 4.63 MIL/MM3 (4.50-5.90); RED CELL DISTRIBUTION WIDTH 15.5 % (11.6-17.2)
[2017-11-18 07:12] LABS: ALBUMIN 3.6 GM/DL (3.4-5.0); ALKALINE PHOSPHATASE 113 U/L (45-117); ALT (GPT) 52 U/L (12-78); AST (GOT) 10 U/L (15-37); BICARBONATE 27.1 MEQ/L (21.0-32.0); BLOOD UREA NITROGEN 20 MG/DL (7-18); CALCIUM 9.2 MG/DL (8.5-10.1); CHLORIDE 102 MEQ/L (98-107); CREATININE 1.12 MG/DL (0.60-1.30); GLOMERULAR FILTRATION RATE 69 ML/MIN (>89); GLUCOSE,RANDOM 189 MG/DL (74-106); SODIUM (NA) 139 MEQ/L (136-145); TOTAL BILIRUBIN ADULT 0.3 MG/DL (0.2-1.0); TOTAL PROTEIN 6.3 GM/DL (6.4-8.2)
[2017-11-18] MEDS: INSULIN ASPART SUPPLEMENTAL SCALE SQ SCH ×4 (08:00→23:24)
[2017-11-18 08:45] LABS: ACANTHOCYTES OCC (NORMAL)
[2017-11-18 08:46] LABS: OVALOCYTES 1+ (NORMAL)
[2017-11-18] MEDS: DILTIAZEM-CD 180 MG CAP ER PO SCH (09:04)
[2017-11-18] MEDS: FUROSEMIDE 40 MG/4 ML VIAL IV PUSH SCH ×2 (09:04→17:45)
[2017-11-18] MEDS: POTASSIUM CHLORIDE 20 MEQ CONTROLLED RELEASE TAB PO SCH ×2 (09:04→23:10)
[2017-11-18] MEDS: DOCUSATE SODIUM 50 MG/SENNA 8.6 MG TAB PO SCH ×2 (09:05→23:10)
[2017-11-18] MEDS: APIXABAN 5 MG TABLET PO SCH ×2 (09:05→23:10)
[2017-11-18] MEDS: BUDESONIDE-FORMOTEROL 160/4.5 MCG INHALER INH SCH ×2 (09:05→23:11)
[2017-11-18] MEDS: FERROUS SULFATE 325 MG (65 MG ELEMENTAL IRON) TAB PO SCH ×2 (09:05→23:10)
[2017-11-18] MEDS: LORazepam 0.5 MG TAB PO SCH ×2 (09:05→23:10)
[2017-11-18] MEDS: metFORMIN HCL 500 MG TAB PO SCH ×2 (09:05→17:41)
[2017-11-18] MEDS: SODIUM CHLORIDE 0.9% FLUSH 10 ML FLUSH IV FLUSH SCH ×2 (09:06→23:08)
[2017-11-18] MEDS: TAMSULOSIN HCL 0.4 MG CAP PO SCH (09:06)
--- NOTE | 2017-11-18 10:21 | HHI.PR ---
Subjective History of Present Illness Patient off BIPAP but still SOB / Wheezing cardiology input noted Review of Systems Constitutional Constitutional: Fatigue, Weakness Pulmonary Respiratory: Coughing, Shortness of Breath, Wheezing Cardiology CV Remarks leg edema. Musculoskeletal MS Remarks Leg edema. Vitals/Results Vital Signs Vital Signs Date Time Temp Pulse Resp B/P (MAP) Pulse Ox O2 Delivery O2 Flow Rate FiO2 11/18/17 08:00 Room Air 11/18/17 07:32 94 11/18/17 06:00 88 11/18/17 05:00 76 11/18/17 04:00 89 11/18/17 03:00 76 11/18/17 02:00 78 11/18/17 01:00 86 11/18/17 00:00 97.6 108 20 141/69 (93) 95 11/18/17 00:00 84 11/17/17 23:00 86 11/17/17 22:00 86 11/17/17 21:00 100 11/17/17 20:45 95 21 11/17/17 20:00 Room Air 11/17/17 20:00 97.7 99 20 165/80 (108) 97 11/17/17 20:00 108 11/17/17 19:00 102 11/17/17 18:20 97 11/17/17 18:00 72 11/17/17 17:00 80 11/17/17 16:37 11/17/17 16:11 96 Room Air 11/17/17 16:11 97.8 80 16 147/78 (101) 96 11/17/17 12:29 82 15 139/86 (103) 97 BiPAP CBC/BMP: 11/18/17 0526 11/18/17 0526 Lab Results Laboratory Tests Test 11/18/17 05:26 White Blood Count 11.0 TH/MM3 Red Blood Count 4.63 MIL/MM3 Hemoglobin 13.6 GM/DL Hematocrit 40.5 % Mean Corpuscular Volume 87.5 FL Mean Corpuscular Hemoglobin 29.4 PG Mean Corpuscular Hemoglobin Concent 33.6 % Red Cell Distribution Width 15.5 % Platelet Count 316 TH/MM3 Mean Platelet Volume 7.3 FL Neutrophils (%) (Auto) 90.4 % Lymphocytes (%) (Auto) 5.6 % Monocytes (%) (Auto) 4.0 % Eosinophils (%) (Auto) 0.0 % Basophils (%) (Auto) 0.0 % Neutrophils # (Auto) 9.9 TH/MM3 Lymphocytes # (Auto) 0.6 TH/MM3 Monocytes # (Auto) 0.4 TH/MM3 Eosinophils # (Auto) 0.0 TH/MM3 Basophils # (Auto) 0.0 TH/MM3 CBC Comment AUTO DIFF Differential Comment AUTO DIFF CONFIRMED Platelet Estimate NORMAL Platelet Morphology Comment NORMAL Ovalocytes 1+ Acanthocytes OCC Blood Urea Nitrogen 20 MG/DL Creatinine 1.12 MG/DL Random Glucose 189 MG/DL Total Protein 6.3 GM/DL Albumin 3.6 GM/DL Calcium Level 9.2 MG/DL Alkaline Phosphatase 113 U/L Aspartate Amino Transf (AST/SGOT) 10 U/L Alanine Aminotransferase (ALT/SGPT) 52 U/L Total Bilirubin 0.3 MG/DL Sodium Level 139 MEQ/L Potassium Level 4.2 MEQ/L Chloride Level 102 MEQ/L Carbon Dioxide Level 27.1 MEQ/L Anion Gap 10 MEQ/L Estimat Glomerular Filtration Rate 69 ML/MIN Physical Exam General General Appearance: Well Developed, Well Nourished, No Acute Distress Eyes Eye Exam: Pupils Equal, Pupils Reactive, Sclera White, Extraocular Movement Intact Throat Throat Exam: Oral Mucosa [place] & Moist, Oral Pharynx Normal Neck Neck Exam: Neck Supple, Trachea Midline Pulmonary Resp Exam: Crackles, Rhonchi, Decreased Bases, Diminished Breath Sounds Resp Remarks Bilateral wheezing. Gastrointestinal/Abdomen GI Exam: Soft, Non-Tender, Bowel Sounds Present Musculoskeletal MS Exam: Joints Intact Integumentary Skin Exam: Clear, Warm, Dry, Intact Extremeties Extremities Exam: Moderate Edema Neurologic Neuro Exam: Alert, Awake, Oriented, Speech Clear, Moving All Extremities, No Focal Deficits Psychiatric Psych Exam: Appropriate Responses VTE Prophylaxis VTE Remarks Eliquis. PUD Prophylasis PUD Prophylaxis: Protonix Assessment/Plan Assessment/Plan ASSESSMENT AND PLAN: 1. This is a 52-year-old male, came to the ER, diagnosed with acute respiratory distress/acute respiratory failure, is in acute chronic obstructive pulmonary disease exacerbation. Patient was on BiPAP. Pulmonary critical care consulted. Patient also on DuoNeb nebulization every 4 hours, Solu-Medrol 80 mg IV every 8 hours and also on Zithromax 500 mg IV daily and cefepime 1 g IV b.i.d. Further recommendation per pulmonary. 2. Chronic obstructive pulmonary disease exacerbation. Patient is on Solu-Medrol IV, IV antibiotic and DuoNeb nebulization. 3. History of hyperlipidemia. Continue with Lipitor 20 mg p.o. daily. 4. History of gastroesophageal reflux disease. Protonix 40 mg p.o. daily. 5. History of leg edema. on Lasix 40 mg IV b.i.d. 6. History of chronic obstructive pulmonary disease. Continue home medication. 7. History of hypertension. Continue with diltiazem 360 mg p.o. daily. 8. History of benign prostatic hypertrophy. Continue with Flomax 0.4 mg p.o. daily. 9. History of depression. Continue home medication. 10. Anxiety. Continue home medication. 11. Deep venous thrombosis and pulmonary embolism. Continue with Eliquis 5 mg twice a day. 12. History of Iron deficiency anemia. Continue with ferrous sulfate 325 mg p.o. b.i.d. 13. Diabetes mellitus. ADA 1800 diet CHECK Blood blood sugar. Continue with metformin 500 mg twice a day. On Insulin sliding scale. 14. Deep venous thrombosis prophylaxis. Patient is on Eliquis 5 mg twice a day. 15. Gastrointestinal prophylaxis. Protonix 40 mg p.o. daily. 16. We are going to manage the patient on daily basis and make recommendations on daily basis. Check CBC with diff CMP in AM. Discussed Condition with: Patient Myron Woodward MD Nov 18, 2017 10:21
--- NOTE | 2017-11-18 12:57 | MB ---
cc: Alvaro Bowen MD DATE OF CONSULT: 11/17/2017 REFERRING PHYSICIAN: Dr. Myron Woodward REASON FOR CONSULTATION: COPD exacerbation. HISTORY OF PRESENT ILLNESS: Mr. Link is a 52-year-old male with history of severe COPD, history of DVT and pulmonary embolism. He has been doing well until 1 week ago, when he started to have worsening of his shortness of breath. He has been having wheezing. Denies any fevers, chills. No rash. Has cough, no sputum production. No chest pain. No bleed. Aerosol treatments Symbicort and prednisone 10 mg a day at home. He was evaluated in the hospital. His WBC count is 11.0, hemoglobin 14.3, hematocrit 42.2, MCV 87, platelet count 315. Sodium 130, potassium 3.6, chloride 105, CO2 of 22, BUN 18, creatinine 1.00. His chest x-ray shows no acute infiltrate. Influenza antigen is negative. Blood culture so far negative. PAST MEDICAL HISTORY: Significant for history of severe bronchial asthma and COPD with multiple exacerbations, history of hypertension, diabetes mellitus, gastroesophageal reflux. MEDICATIONS: He is currently taking Lipitor 20 mg a day, Singulair 10 mg, Protonix 40 mg a day, Lasix 40 mg twice a day, albuterol/atrovent nebulizer treatment, Symbicort 160/4.5 two puffs twice a day, diltiazem 360 mg a day, potassium 20 mEq, Flomax 0.4 mg, Solu-Medrol 60 mg q. 8 hours, Zithromax 500 mg, Rocephin 1 gm a day, Eliquis 5 mg twice a day, ferrous sulfate 325 mg a day, lorazepam 0.5 mg twice a day, metformin 500 mg twice a day. 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 No history of smoking or alcohol use. He has one son, who lives in [place]. 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 FAMILY HISTORY: Noncontributory. REVIEW OF SYSTEMS: Normally he is up and active. He has history of DVT and pulmonary embolism. No malignancy, seizures, stroke or epilepsy. PHYSICAL EXAMINATION: MBMN WM,mild short of breath. VITAL SIGNS: Blood pressure 147/78, heart rate 80, respirations 20, temperature 97.8. HEENT: Pupils are equal, round, reactive to light. Oral mucosa and nasal mucosa normal. NECK: Supple. JVD not raised. CHEST: Equal air entry bilaterally, has bilateral expiratory rhonchi. CARDIOVASCULAR: S,1, S2 normal. ABDOMEN: Benign. EXTREMITIES: No edema. IMPRESSION: 1. Chronic obstructive pulmonary disease exacerbation. 2. Bronchitis. 3. Hypertension. 4. Diabetes mellitus. 5. Gastroesophageal reflux disease. PLAN: We will give him IV Solu-Medrol. He has been started on albuterol and atrovent. Continue Rocephin and Zithromax. Symbicort twice a day. Eliquis 5 mg twice and monitor his electrolytes. Further treatment will depend on the course in the hospital. Thank you, Dr. Myron Woodward, for this consult. MD ROSALVA Duff/ELPIDIO , 04:56 PM , 06:28 PM [email or web address]
[2017-11-18] MEDS: AZITHROMYCIN INJ 500 MG in SODIUM CHLOR 0.9% 250 ML INJ 250 ML IV SCH (13:31)
[2017-11-18] MEDS: CEFEPIME INJ 1,000 MG in SODIUM CHLORIDE 0.9% INJ 100 ML IV SCH ×2 (13:33→23:09)
--- NOTE | 2017-11-18 17:18 | PD.CARD.PN ---
Subjective Subjective Remarks No CP, still SOB, slow improvement, ambulating in the room Objective Medications Current Medications Medications (Trade) Dose Ordered Sig/Gabi Route Start Time Stop Time Status Last Admin (NS Flush) 2 ml UNSCH PRN IV FLUSH 11/17/17 09:30 (NS Flush) 2 ml BID IV FLUSH 11/17/17 09:30 11/18/17 09:06 (Tylenol) 650 mg Q4H PRN PO 11/17/17 09:30 (Zofran Inj) 4 mg Q6H PRN IVP 11/17/17 09:30 (Narcan Inj) 0.4 mg UNSCH PRN IV PUSH 11/17/17 09:30 (Clare-Colace) 1 tab BID PO 11/17/17 09:30 11/18/17 09:05 (Milk Of Magnesia Liq) 30 ml Q12H PRN PO 11/17/17 09:30 (Senokot) 17.2 mg Q12H PRN PO 11/17/17 09:30 (Dulcolax Supp) 10 mg DAILY PRN RECTAL 11/17/17 09:30 (Lactulose Liq) 30 ml DAILY PRN PO 11/17/17 09:30 (Eliquis) 5 mg BID PO 11/17/17 09:30 11/18/17 09:05 (Lipitor) 20 mg HS PO 11/17/17 21:00 11/17/17 21:23 (Symbicort 160-4.5 Mcg Inh) 2 puff Q12HR INH 11/17/17 11:00 11/18/17 09:05 (Cardizem Cd) 360 mg DAILY PO 11/17/17 11:00 11/18/17 09:04 (Ferrous Sulfate) 325 mg BID PO 11/17/17 09:30 11/18/17 09:05 (Ativan) 0.5 mg BID PO 11/17/17 09:30 11/18/17 09:05 (Glucophage) 500 mg BIDPC PO 11/17/17 09:30 11/18/17 09:05 (Singulair) 10 mg HS PO 11/17/17 21:00 11/17/17 21:23 (KCl) 20 meq BID PO 11/17/17 11:00 11/18/17 09:04 (Flomax) 0.4 mg DAILY PO 11/17/17 11:00 11/18/17 09:06 (Albuterol Neb) 1.25 mg BID NEB PRN NEB 11/17/17 10:30 (Protonix) 40 mg HS PO 11/17/17 21:00 11/17/17 21:23 (SoluMEDROL INJ) 60 mg Q8HR IV PUSH 11/17/17 11:00 11/18/17 13:31 Azithromycin 500 mg/Sodium Chloride 250 ml @ 250 mls/hr Q24H IV 11/17/17 11:00 11/18/17 13:31 (Duoneb Neb) 1 ampule Q4HR NEB NEB 11/17/17 12:00 11/18/17 16:25 Cefepime HCl 1000 mg/Sodium Chloride 100 ml @ 200 mls/hr Q12H IV 11/17/17 11:00 11/18/17 13:33 (Lasix Inj) 40 mg BID@09,18 IV PUSH 11/17/17 18:00 11/18/17 09:04 (D50w (Vial) Inj) 50 ml UNSCH PRN IV PUSH 11/17/17 11:30 (Glucagon Inj) 1 mg UNSCH PRN OTHER 11/17/17 11:30 (NovoLOG SUPPLEMENTAL SCALE) 1 ACHS SLIDING SCALE SQ 11/17/17 13:00 11/18/17 12:00 Vital Signs / I&O Vital Signs Date Time Temp Pulse Resp B/P (MAP) Pulse Ox O2 Delivery O2 Flow Rate FiO2 11/18/17 16:00 97.8 85 18 129/79 (96) 94 11/18/17 16:00 84 11/18/17 12:00 98.0 107 18 154/84 (107) 95 11/18/17 12:00 85 11/18/17 08:00 Room Air 11/18/17 08:00 85 11/18/17 08:00 97.4 91 18 147/81 (103) 95 11/18/17 07:32 94 11/18/17 06:00 88 11/18/17 05:00 76 11/18/17 04:00 89 11/18/17 03:00 76 11/18/17 02:00 78 11/18/17 01:00 86 11/18/17 00:00 97.6 108 20 141/69 (93) 95 11/18/17 00:00 84 11/17/17 23:00 86 11/17/17 22:00 86 11/17/17 21:00 100 11/17/17 20:45 95 21 11/17/17 20:00 Room Air 11/17/17 20:00 97.7 99 20 165/80 (108) 97 11/17/17 20:00 108 11/17/17 19:00 102 11/17/17 18:20 97 11/17/17 18:00 72 I/O 11/17/17 11/17/17 11/17/17 11/18/17 11/18/17 11/18/17 07:00 15:00 23:00 07:00 15:00 23:00 Intake Total 350 ml 820 ml 480 ml 540 ml Output Total 300 ml 825 ml 850 ml 1500 ml Balance 50 ml -5 ml -370 ml -960 ml Intake Oral 720 ml 480 ml 540 ml IV Total 350 ml 100 ml Output Urine Total 300 ml 825 ml 850 ml 1500 ml # Voids 1 # Bowel Movements 1 2 Physical Exam GENERAL: In mild resp distress SKIN: Warm and dry. HEAD: Normocephalic. EYES: No scleral icterus. No injection or drainage. NECK: Supple, trachea midline. No JVD or lymphadenopathy. CARDIOVASCULAR: Regular rate and rhythm without murmurs, gallops, or rubs. RESPIRATORY: Breath sounds equal bilaterally. No accessory muscle use. Diffuse bilat wheezing GASTROINTESTINAL: Abdomen soft, non-tender, nondistended. MUSCULOSKELETAL: No cyanosis, or edema. Laboratory Laboratory Tests Test 11/18/17 05:26 White Blood Count 11.0 TH/MM3 Red Blood Count 4.63 MIL/MM3 Hemoglobin 13.6 GM/DL Hematocrit 40.5 % Mean Corpuscular Volume 87.5 FL Mean Corpuscular Hemoglobin 29.4 PG Mean Corpuscular Hemoglobin Concent 33.6 % Red Cell Distribution Width 15.5 % Platelet Count 316 TH/MM3 Mean Platelet Volume 7.3 FL Neutrophils (%) (Auto) 90.4 % Lymphocytes (%) (Auto) 5.6 % Monocytes (%) (Auto) 4.0 % Eosinophils (%) (Auto) 0.0 % Basophils (%) (Auto) 0.0 % Neutrophils # (Auto) 9.9 TH/MM3 Lymphocytes # (Auto) 0.6 TH/MM3 Monocytes # (Auto) 0.4 TH/MM3 Eosinophils # (Auto) 0.0 TH/MM3 Basophils # (Auto) 0.0 TH/MM3 CBC Comment AUTO DIFF Differential Comment AUTO DIFF CONFIRMED Platelet Estimate NORMAL Platelet Morphology Comment NORMAL Ovalocytes 1+ Acanthocytes OCC Blood Urea Nitrogen 20 MG/DL Creatinine 1.12 MG/DL Random Glucose 189 MG/DL Total Protein 6.3 GM/DL Albumin 3.6 GM/DL Calcium Level 9.2 MG/DL Alkaline Phosphatase 113 U/L Aspartate Amino Transf (AST/SGOT) 10 U/L Alanine Aminotransferase (ALT/SGPT) 52 U/L Total Bilirubin 0.3 MG/DL Sodium Level 139 MEQ/L Potassium Level 4.2 MEQ/L Chloride Level 102 MEQ/L Carbon Dioxide Level 27.1 MEQ/L Anion Gap 10 MEQ/L Estimat Glomerular Filtration Rate 69 ML/MIN Assessment and Plan Problem List: (1) Acute hypercapnic respiratory failure ICD Codes: J96.02 - Acute respiratory failure with hypercapnia Status: Acute (2) Acute asthma exacerbation ICD Codes: J45.901 - Unspecified asthma with (acute) exacerbation Status: Acute (3) History of pulmonary embolism ICD Codes: Z86.711 - Personal history of pulmonary embolism Status: Acute (4) Hypertension ICD Codes: I10 - Essential (primary) hypertension Status: Acute (5) Hyperlipidemia ICD Codes: E78.5 - Hyperlipidemia, unspecified Status: Chronic Assessment and Plan Continue tx for COPD exacerbation. Slowly improving. Mild ST, no significant arrhythmias. Continue Eliquis, has h/o DVT/PE. Continue monitoring. Increase activity. D/w pt and . Problem Qualifiers (1) Acute asthma exacerbation: Qualified Codes: J45.901 - Unspecified asthma with (acute) exacerbation Aadm Moody MD Nov 18, 2017 17:18
[2017-11-18 21:59] LABS: BILIRUBIN, URINE NEG (NEG); BLOOD, URINE NEG (NEG); GLUCOSE,URINE 150 mg/dL (NEG); KETONE, URINE NEG (NEG); MUCUS URINE FEW /lpf (OCC); NITRITE,URINE NEG (NEG); URINE COLOR YELLOW (YELLW/STRAW); URINE LEUKOCYTE ESTERASE NEG (NEG)
[2017-11-18] MEDS: ATORVASTATIN 20 MG TAB PO SCH (23:09)
[2017-11-18] MEDS: PANTOPRAZOLE SOD 40 MG DELAYED RELEASE TAB PO SCH (23:09)
[2017-11-18] MEDS: MONTELUKAST SODIUM 10 MG TAB PO SCH (23:09)
[2017-11-19] VITALS (21 sets, daily range): BP systolic 137–166; BP diastolic 86–93; PULSE 81–126; RESP 16–20; TEMP 97.7–97.9; O2SAT 95–98
[2017-11-19] MEDS: RESP: ALBUTEROL 2.5 MG/IPRATROPIUM 0.5 MG NEB (SCH) NEB ×6 (00:09→19:38)
[2017-11-19] MEDS: methylPREDNISolone SOD SUCC 125 MG/2 ML VIAL IV PUSH SCH ×3 (06:41→22:53)
[2017-11-19 07:32] LABS: AUTOMATED NEUTROPHIL # 14.3 TH/MM3 (1.8-7.7); BASOPHIL % 0.1 % (0.0-2.0); HEMATOCRIT 41.6 % (39.0-51.0); LYMPH % 5.2 % (9.0-44.0); LYMPHOCYTE # 0.8 TH/MM3 (1.0-4.8); MEAN CELL VOLUME 86.7 FL (80.0-100.0); MEAN CORPUSCULAR HEMOGLOBIN 29.1 PG (27.0-34.0); MEAN CORPUSCULAR HGB CONC 33.6 % (32.0-36.0); MEAN PLATELET VOLUME 7.5 FL (7.0-11.0); MONO % 3.6 % (0.0-8.0); MONOCYTE # 0.6 TH/MM3 (0-0.9); NEUT % 91.1 % (16.0-70.0); PLATELET COUNT 326 TH/MM3 (150-450); RED CELL DISTRIBUTION WIDTH 15.4 % (11.6-17.2); WHITE BLOOD COUNT 15.7 TH/MM3 (4.0-11.0)
[2017-11-19 07:48] LABS: ALBUMIN 3.8 GM/DL (3.4-5.0); AST (GOT) 15 U/L (15-37); BICARBONATE 24.1 MEQ/L (21.0-32.0); BLOOD UREA NITROGEN 22 MG/DL (7-18); CALCIUM 9.4 MG/DL (8.5-10.1); CHLORIDE 100 MEQ/L (98-107); CREATININE 1.13 MG/DL (0.60-1.30); GLOMERULAR FILTRATION RATE 68 ML/MIN (>89); GLUCOSE,RANDOM 192 MG/DL (74-106); SODIUM (NA) 138 MEQ/L (136-145)
[2017-11-19 07:49] LABS: ALT (GPT) 53 U/L (12-78)
[2017-11-19 07:52] LABS: ALKALINE PHOSPHATASE 122 U/L (45-117); TOTAL BILIRUBIN ADULT 0.3 MG/DL (0.2-1.0); TOTAL PROTEIN 6.6 GM/DL (6.4-8.2)
[2017-11-19 08:35] LABS: BANDS 3 % (0-6); CORRECTED NUCLEATED RBC 1 /100 WBC (0-0); LYMPHOCYTES 4 % (9-44); METAMYELOCYTES 1 % (0-1); MONOCYTES 4 % (0-8); MYELOCYTES 2 % (0-0); NEUTROPHIL # MANUAL DIFF 14.4 TH/MM3 (1.8-7.7); NUCLEATED RED BLOOD CELL 1 (0-0); POLYS (SEG NEUTROPHILS) 86 % (16-70)
[2017-11-19 08:36] LABS: ACANTHOCYTES OCC (NORMAL); BURR CELLS 1+ (NORMAL); OVALOCYTES 1+ (NORMAL); TEARDROP RBCS 1+ (NORMAL)
[2017-11-19] MEDS: BUDESONIDE-FORMOTEROL 160/4.5 MCG INHALER INH SCH ×2 (09:00→22:55)
[2017-11-19] MEDS: INSULIN ASPART SUPPLEMENTAL SCALE SQ SCH ×4 (09:47→23:13)
[2017-11-19] MEDS: FERROUS SULFATE 325 MG (65 MG ELEMENTAL IRON) TAB PO SCH ×2 (09:56→22:53)
[2017-11-19] MEDS: TAMSULOSIN HCL 0.4 MG CAP PO SCH (09:57)
[2017-11-19] MEDS: DOCUSATE SODIUM 50 MG/SENNA 8.6 MG TAB PO SCH ×2 (09:57→22:55)
[2017-11-19] MEDS: APIXABAN 5 MG TABLET PO SCH ×2 (09:57→22:54)
[2017-11-19] MEDS: DILTIAZEM-CD 180 MG CAP ER PO SCH (09:57)
[2017-11-19] MEDS: SODIUM CHLORIDE 0.9% FLUSH 10 ML FLUSH IV FLUSH SCH ×2 (09:58→22:55)
[2017-11-19] MEDS: metFORMIN HCL 500 MG TAB PO SCH ×2 (09:58→17:23)
[2017-11-19] MEDS: FUROSEMIDE 40 MG/4 ML VIAL IV PUSH SCH ×2 (09:58→17:24)
[2017-11-19] MEDS: POTASSIUM CHLORIDE 20 MEQ CONTROLLED RELEASE TAB PO SCH ×2 (09:58→22:53)
[2017-11-19] MEDS: LORazepam 0.5 MG TAB PO SCH ×2 (09:58→22:54)
[2017-11-19] MEDS: CEFEPIME INJ 1,000 MG in SODIUM CHLORIDE 0.9% INJ 100 ML IV SCH ×2 (11:28→22:52)
[2017-11-19] MEDS: AZITHROMYCIN INJ 500 MG in SODIUM CHLOR 0.9% 250 ML INJ 250 ML IV SCH (11:28)
--- NOTE | 2017-11-19 17:03 | HHI.PR ---
Subjective Remarks ALERT UP IN CHAIR LESS SOB NO COUGH OR SPUTUM OCC WHEEZE Objective Vital Signs Date Time Temp Pulse Resp B/P (MAP) Pulse Ox O2 Delivery O2 Flow Rate FiO2 11/19/17 16:07 111 11/19/17 15:36 97.9 104 20 147/87 (107) 96 11/19/17 15:36 125 11/19/17 15:28 98 21 11/19/17 14:25 93 11/19/17 13:22 110 11/19/17 12:58 125 11/19/17 12:58 97.8 101 18 137/86 (103) 97 11/19/17 10:43 97 11/19/17 09:36 87 11/19/17 07:38 Room Air 21 11/19/17 07:37 98 21 11/19/17 07:36 97.7 86 18 166/93 (117) 95 11/19/17 07:12 96 11/19/17 04:00 84 11/19/17 00:00 84 16 141/86 (104) 96 11/19/17 00:00 81 11/19/17 00:00 Room Air 21 11/18/17 20:16 88 11/18/17 19:29 97 21 I/O 11/18/17 11/18/17 11/18/17 11/19/17 11/19/17 11/19/17 07:00 15:00 23:00 07:00 15:00 23:00 Intake Total 480 ml 540 ml 1200 ml Output Total 850 ml 1500 ml 1475 ml Balance -370 ml -960 ml -275 ml Intake Oral 480 ml 540 ml 1200 ml Output Urine Total 850 ml 1500 ml 1475 ml # Bowel Movements 2 1 Result Diagram: 11/19/17 0533 11/19/17 0533 Objective Remarks GENERAL: SKIN: Warm and dry. HEAD: Atraumatic. Normocephalic. EYES: Pupils equal and round. No scleral icterus. No injection or drainage. ENT: No nasal bleeding or discharge. Mucous membranes pink and moist. NECK: Trachea midline. No JVD. CARDIOVASCULAR: Regular rate and rhythm. RESPIRATORY: No accessory muscle use. Clear to auscultation. Breath sounds equal bilaterally. GASTROINTESTINAL: Abdomen soft, non-tender, nondistended. Hepatic and splenic margins not palpable. MUSCULOSKELETAL: Extremities without clubbing, cyanosis, or edema. No obvious deformities. NEUROLOGICAL: Awake and alert. No obvious cranial nerve deficits. Motor grossly within normal limits. Five out of 5 muscle strength in the arms and legs. Normal speech. PSYCHIATRIC: Appropriate mood and affect; insight and judgment normal. Assessment and Plan Assessment and Plan COPD EXACERBATOIN THOMSON O2 NEEDED BRONCHODILATORS STEROIDS ANTIBX WILL FOLLOW Mary Hernandez MD Nov 19, 2017 17:03
[2017-11-19] MEDS: ATORVASTATIN 20 MG TAB PO SCH (22:53)
[2017-11-19] MEDS: MONTELUKAST SODIUM 10 MG TAB PO SCH (22:53)
[2017-11-19] MEDS: PANTOPRAZOLE SOD 40 MG DELAYED RELEASE TAB PO SCH (22:54)
[2017-11-20] VITALS (25 sets, daily range): BP systolic 139–167; BP diastolic 85–99; PULSE 53–126; RESP 16–18; TEMP 97.5–98.1; O2SAT 95–99
[2017-11-20] MEDS: RESP: ALBUTEROL 2.5 MG/IPRATROPIUM 0.5 MG NEB (SCH) NEB ×7 (00:36→23:07)
--- NOTE | 2017-11-20 06:06 | PD.CARD.PN ---
Subjective Subjective Remarks Progress note 11/19/2017 SOB improving, no CP ambulating in the room Objective Medications Current Medications Medications (Trade) Dose Ordered Sig/Gabi Route Start Time Stop Time Status Last Admin (NS Flush) 2 ml UNSCH PRN IV FLUSH 11/17/17 09:30 (NS Flush) 2 ml BID IV FLUSH 11/17/17 09:30 11/19/17 22:55 (Tylenol) 650 mg Q4H PRN PO 11/17/17 09:30 (Zofran Inj) 4 mg Q6H PRN IVP 11/17/17 09:30 (Narcan Inj) 0.4 mg UNSCH PRN IV PUSH 11/17/17 09:30 (Clare-Colace) 1 tab BID PO 11/17/17 09:30 11/19/17 22:55 (Milk Of Magnesia Liq) 30 ml Q12H PRN PO 11/17/17 09:30 (Senokot) 17.2 mg Q12H PRN PO 11/17/17 09:30 (Dulcolax Supp) 10 mg DAILY PRN RECTAL 11/17/17 09:30 (Lactulose Liq) 30 ml DAILY PRN PO 11/17/17 09:30 (Eliquis) 5 mg BID PO 11/17/17 09:30 11/19/17 22:54 (Lipitor) 20 mg HS PO 11/17/17 21:00 11/19/17 22:53 (Symbicort 160-4.5 Mcg Inh) 2 puff Q12HR INH 11/17/17 11:00 11/19/17 22:55 (Cardizem Cd) 360 mg DAILY PO 11/17/17 11:00 11/19/17 09:57 (Ferrous Sulfate) 325 mg BID PO 11/17/17 09:30 11/19/17 22:53 (Ativan) 0.5 mg BID PO 11/17/17 09:30 11/19/17 22:54 (Glucophage) 500 mg BIDPC PO 11/17/17 09:30 11/19/17 17:23 (Singulair) 10 mg HS PO 11/17/17 21:00 11/19/17 22:53 (KCl) 20 meq BID PO 11/17/17 11:00 3/14/18 22:53 (Flomax) 0.4 mg DAILY PO 11/17/17 11:00 11/19/17 09:57 (Albuterol Neb) 1.25 mg BID NEB PRN NEB 11/17/17 10:30 (Protonix) 40 mg HS PO 11/17/17 21:00 11/19/17 22:54 (SoluMEDROL INJ) 60 mg Q8HR IV PUSH 11/17/17 11:00 11/19/17 22:53 Azithromycin 500 mg/Sodium Chloride 250 ml @ 250 mls/hr Q24H IV 11/17/17 11:00 11/19/17 11:28 (Duoneb Neb) 1 ampule Q4HR NEB NEB 11/17/17 12:00 11/20/17 04:19 Cefepime HCl 1000 mg/Sodium Chloride 100 ml @ 200 mls/hr Q12H IV 11/17/17 11:00 11/19/17 22:52 (Lasix Inj) 40 mg BID@,18 IV PUSH 11/17/17 18:00 11/19/17 17:24 (D50w (Vial) Inj) 50 ml UNSCH PRN IV PUSH 11/17/17 11:30 (Glucagon Inj) 1 mg UNSCH PRN OTHER 11/17/17 11:30 (NovoLOG SUPPLEMENTAL SCALE) 1 ACHS SLIDING SCALE SQ 11/17/17 13:00 11/19/17 23:13 Vital Signs / I&O Vital Signs Date Time Temp Pulse Resp B/P (MAP) Pulse Ox O2 Delivery O2 Flow Rate FiO2 11/20/17 05:05 83 11/20/17 04:58 87 11/20/17 04:00 80 11/20/17 04:00 74 11/20/17 03:00 76 11/20/17 02:00 78 11/20/17 01:00 88 11/20/17 00:00 82 11/20/17 00:00 75 16 155/88 (110) 97 11/19/17 23:00 88 11/19/17 22:00 84 11/19/17 21:00 126 11/19/17 20:00 90 11/19/17 20:00 100 11/19/17 20:00 97.7 99 16 154/88 (110) 98 11/19/17 20:00 Room Air 21 11/19/17 19:40 95 21 11/19/17 19:00 112 11/19/17 18:38 109 11/19/17 17:33 101 11/19/17 16:07 111 11/19/17 15:36 97.9 104 20 147/87 (107) 96 11/19/17 15:36 125 11/19/17 15:28 98 21 11/19/17 14:25 93 11/19/17 13:22 110 11/19/17 12:58 125 11/19/17 12:58 97.8 101 18 137/86 (103) 97 11/19/17 10:43 97 11/19/17 09:36 87 11/19/17 07:38 Room Air 21 11/19/17 07:37 98 21 11/19/17 07:36 97.7 86 18 166/93 (117) 95 11/19/17 07:12 96 I/O 11/19/17 11/19/17 11/19/17 11/20/17 11/20/17 11/20/17 07:00 15:00 23:00 07:00 15:00 23:00 Intake Total 1200 ml 840 ml 480 ml Output Total 1475 ml 3700 ml 1800 ml Balance -275 ml -2860 ml -1320 ml Intake Oral 1200 ml 840 ml 480 ml Output Urine Total 1475 ml 3700 ml 1800 ml # Bowel Movements 1 1 Physical Exam GENERAL: In NAD SKIN: Warm and dry. HEAD: Normocephalic. EYES: No scleral icterus. No injection or drainage. NECK: Supple, trachea midline. No JVD or lymphadenopathy. CARDIOVASCULAR: Regular rate and rhythm without murmurs, gallops, or rubs. RESPIRATORY: Breath sounds equal bilaterally. No accessory muscle use. Diffuse bilat wheezing GASTROINTESTINAL: Abdomen soft, non-tender, nondistended. MUSCULOSKELETAL: No cyanosis, or edema. Assessment and Plan Problem List: (1) Acute hypercapnic respiratory failure ICD Codes: J96.02 - Acute respiratory failure with hypercapnia Status: Acute (2) Acute asthma exacerbation ICD Codes: J45.901 - Unspecified asthma with (acute) exacerbation Status: Acute (3) History of pulmonary embolism ICD Codes: Z86.711 - Personal history of pulmonary embolism Status: Acute (4) Hypertension ICD Codes: I10 - Essential (primary) hypertension Status: Acute (5) Hyperlipidemia ICD Codes: E78.5 - Hyperlipidemia, unspecified Status: Chronic Assessment and Plan No new cardiac issues. Continue tx for COPD exacerbation. Slowly improving. Mild ST, no significant arrhythmias. Continue anticoagulation with Eliquis, has h/o DVT/PE. Continue monitoring. Increase activity. Anticipate discharge home soon. D/w pt and . Problem Qualifiers (1) Acute asthma exacerbation: Qualified Codes: J45.901 - Unspecified asthma with (acute) exacerbation Adam Moody MD Nov 20, 2017 06:06
[2017-11-20] MEDS: methylPREDNISolone SOD SUCC 125 MG/2 ML VIAL IV PUSH SCH ×3 (06:35→21:27)
[2017-11-20] MEDS: INSULIN ASPART SUPPLEMENTAL SCALE SQ SCH ×4 (08:00→21:27)
[2017-11-20] MEDS: SODIUM CHLORIDE 0.9% FLUSH 10 ML FLUSH IV FLUSH SCH ×2 (09:00→21:26)
[2017-11-20] MEDS: DOCUSATE SODIUM 50 MG/SENNA 8.6 MG TAB PO SCH ×2 (09:12→21:26)
[2017-11-20] MEDS: LORazepam 0.5 MG TAB PO SCH ×2 (09:12→21:26)
[2017-11-20] MEDS: POTASSIUM CHLORIDE 20 MEQ CONTROLLED RELEASE TAB PO SCH ×2 (09:12→21:26)
[2017-11-20] MEDS: metFORMIN HCL 500 MG TAB PO SCH ×2 (09:12→17:40)
[2017-11-20] MEDS: FERROUS SULFATE 325 MG (65 MG ELEMENTAL IRON) TAB PO SCH ×2 (09:12→21:26)
[2017-11-20] MEDS: DILTIAZEM-CD 180 MG CAP ER PO SCH (09:12)
[2017-11-20] MEDS: APIXABAN 5 MG TABLET PO SCH ×2 (09:12→21:26)
[2017-11-20] MEDS: TAMSULOSIN HCL 0.4 MG CAP PO SCH (09:12)
[2017-11-20] MEDS: FUROSEMIDE 40 MG/4 ML VIAL IV PUSH SCH ×2 (09:13→17:40)
[2017-11-20] MEDS: BUDESONIDE-FORMOTEROL 160/4.5 MCG INHALER INH SCH ×2 (09:16→21:28)
--- NOTE | 2017-11-20 12:40 | HHI.PR ---
Subjective History of Present Illness Patient seen on 11/19/17. but still SOB / Wheezing cardiology/ Pulmonary input noted c/o burning urination check Urine Review of Systems Constitutional Constitutional: Fatigue, Weakness Pulmonary Respiratory: Coughing, Shortness of Breath, Wheezing Cardiology CV Remarks leg edema. Musculoskeletal MS Remarks Leg edema. Vitals/Results Vital Signs Vital Signs Date Time Temp Pulse Resp B/P (MAP) Pulse Ox O2 Delivery O2 Flow Rate FiO2 11/20/17 09:21 97 21 11/20/17 07:01 53 11/20/17 06:30 84 16 152/99 (116) 97 11/20/17 05:05 83 11/20/17 04:58 87 11/20/17 04:00 80 11/20/17 04:00 74 11/20/17 03:00 76 11/20/17 02:00 78 11/20/17 01:00 88 11/20/17 00:00 82 11/20/17 00:00 75 16 155/88 (110) 97 11/19/17 23:00 88 11/19/17 22:00 84 11/19/17 21:00 126 11/19/17 20:00 90 11/19/17 20:00 100 11/19/17 20:00 97.7 99 16 154/88 (110) 98 11/19/17 20:00 Room Air 21 11/19/17 19:40 95 21 11/19/17 19:00 112 11/19/17 18:38 109 11/19/17 17:33 101 11/19/17 16:07 111 11/19/17 15:36 97.9 104 20 147/87 (107) 96 11/19/17 15:36 125 11/19/17 15:28 98 21 11/19/17 14:25 93 11/19/17 13:22 110 11/19/17 12:58 125 11/19/17 12:58 97.8 101 18 137/86 (103) 97 CBC/BMP: 11/19/17 0533 11/19/17 0533 Physical Exam General General Appearance: Well Developed, Well Nourished, No Acute Distress Eyes Eye Exam: Pupils Equal, Pupils Reactive, Sclera White, Extraocular Movement Intact Throat Throat Exam: Oral Mucosa [place] & Moist, Oral Pharynx Normal Neck Neck Exam: Neck Supple, Trachea Midline Pulmonary Resp Exam: Crackles, Rhonchi, Decreased Bases, Diminished Breath Sounds Resp Remarks Bilateral wheezing. Gastrointestinal/Abdomen GI Exam: Soft, Non-Tender, Bowel Sounds Present Musculoskeletal MS Exam: Joints Intact Integumentary Skin Exam: Clear, Warm, Dry, Intact Extremeties Extremities Exam: Moderate Edema Neurologic Neuro Exam: Alert, Awake, Oriented, Speech Clear, Moving All Extremities, No Focal Deficits Psychiatric Psych Exam: Appropriate Responses VTE Prophylaxis VTE Remarks Eliquis. PUD Prophylasis PUD Prophylaxis: Protonix Assessment/Plan Assessment/Plan ASSESSMENT AND PLAN: 1. This is a 52-year-old male, came to the ER, diagnosed with acute respiratory distress/acute respiratory failure, is in acute chronic obstructive pulmonary disease exacerbation. Patient was on BiPAP. Pulmonary input noted. Patient also on DuoNeb nebulization every 4 hours, Solu-Medrol 60 mg IV every 8 hours and also on Zithromax 500 mg IV daily and cefepime 1 g IV b.i.d. Further recommendation per pulmonary. 2. Chronic obstructive pulmonary disease exacerbation. Patient is on Solu-Medrol IV, IV antibiotic and DuoNeb nebulization. 3. History of hyperlipidemia. Continue with Lipitor 20 mg p.o. daily. 4. History of gastroesophageal reflux disease. Protonix 40 mg p.o. daily. 5. History of leg edema. on Lasix 40 mg IV b.i.d. 6. History of chronic obstructive pulmonary disease. Continue home medication. 7. History of hypertension. Continue with diltiazem 360 mg p.o. daily. 8. History of benign prostatic hypertrophy. Continue with Flomax 0.4 mg p.o. daily. 9. History of depression. Continue home medication. 10. Anxiety. Continue home medication. 11. Deep venous thrombosis and pulmonary embolism. Continue with Eliquis 5 mg twice a day. 12. History of Iron deficiency anemia. Continue with ferrous sulfate 325 mg p.o. b.i.d. 13. Diabetes mellitus. ADA 1800 diet CHECK Blood blood sugar. Continue with metformin 500 mg twice a day. On Insulin sliding scale. 14. Deep venous thrombosis prophylaxis. Patient is on Eliquis 5 mg twice a day. 15. Gastrointestinal prophylaxis. Protonix 40 mg p.o. daily. 16. Burning urination ...Urine analysis negative for UTI. We are going to manage the patient on daily basis and make recommendations on daily basis. Check CBC with diff CMP in AM. Discussed Condition with: Patient Myron Woodward MD Nov 20, 2017 12:40
--- NOTE | 2017-11-20 12:41 | HHI.PR ---
Subjective History of Present Illness Patient still SOB / Wheezing cardiology/ Pulmonary input noted have leukocytosis will monitor. Review of Systems Constitutional Constitutional: Fatigue, Weakness Pulmonary Respiratory: Coughing, Shortness of Breath, Wheezing Cardiology CV Remarks leg edema. Musculoskeletal MS Remarks Leg edema. Vitals/Results Vital Signs Vital Signs Date Time Temp Pulse Resp B/P (MAP) Pulse Ox O2 Delivery O2 Flow Rate FiO2 11/20/17 09:21 97 21 11/20/17 07:01 53 11/20/17 06:30 84 16 152/99 (116) 97 11/20/17 05:05 83 11/20/17 04:58 87 11/20/17 04:00 80 11/20/17 04:00 74 11/20/17 03:00 76 11/20/17 02:00 78 11/20/17 01:00 88 11/20/17 00:00 82 11/20/17 00:00 75 16 155/88 (110) 97 11/19/17 23:00 88 11/19/17 22:00 84 11/19/17 21:00 126 11/19/17 20:00 90 11/19/17 20:00 100 11/19/17 20:00 97.7 99 16 154/88 (110) 98 11/19/17 20:00 Room Air 21 11/19/17 19:40 95 21 11/19/17 19:00 112 11/19/17 18:38 109 11/19/17 17:33 101 11/19/17 16:07 111 11/19/17 15:36 97.9 104 20 147/87 (107) 96 11/19/17 15:36 125 11/19/17 15:28 98 21 11/19/17 14:25 93 11/19/17 13:22 110 11/19/17 12:58 125 11/19/17 12:58 97.8 101 18 137/86 (103) 97 CBC/BMP: 11/19/17 0533 11/19/17 0533 Physical Exam General General Appearance: Well Developed, Well Nourished, No Acute Distress Eyes Eye Exam: Pupils Equal, Pupils Reactive, Sclera White, Extraocular Movement Intact Throat Throat Exam: Oral Mucosa [place] & Moist, Oral Pharynx Normal Neck Neck Exam: Neck Supple, Trachea Midline Pulmonary Resp Exam: Crackles, Rhonchi, Decreased Bases, Diminished Breath Sounds Resp Remarks Bilateral wheezing. Gastrointestinal/Abdomen GI Exam: Soft, Non-Tender, Bowel Sounds Present Musculoskeletal MS Exam: Joints Intact Integumentary Skin Exam: Clear, Warm, Dry, Intact Extremeties Extremities Exam: Moderate Edema Neurologic Neuro Exam: Alert, Awake, Oriented, Speech Clear, Moving All Extremities, No Focal Deficits Psychiatric Psych Exam: Appropriate Responses VTE Prophylaxis VTE Remarks Eliquis. PUD Prophylasis PUD Prophylaxis: Protonix Assessment/Plan Assessment/Plan ASSESSMENT AND PLAN: 1. This is a 52-year-old male, came to the ER, diagnosed with acute respiratory distress/acute respiratory failure, is in acute chronic obstructive pulmonary disease exacerbation. Patient was on BiPAP. Pulmonary input noted. Patient also on DuoNeb nebulization every 4 hours, Solu-Medrol 60 mg IV every 8 hours and also on Zithromax 500 mg IV daily and cefepime 1 g IV b.i.d. Further recommendation per pulmonary. 2. Chronic obstructive pulmonary disease exacerbation. Patient is on Solu-Medrol IV, IV antibiotic and DuoNeb nebulization. 3. History of hyperlipidemia. Continue with Lipitor 20 mg p.o. daily. 4. History of gastroesophageal reflux disease. Protonix 40 mg p.o. daily. 5. History of leg edema. on Lasix 40 mg IV b.i.d. 6. History of chronic obstructive pulmonary disease. Continue home medication. 7. History of hypertension. Continue with diltiazem 360 mg p.o. daily. 8. History of benign prostatic hypertrophy. Continue with Flomax 0.4 mg p.o. daily. 9. History of depression. Continue home medication. 10. Anxiety. Continue home medication. 11. Deep venous thrombosis and pulmonary embolism. Continue with Eliquis 5 mg twice a day. 12. History of Iron deficiency anemia. Continue with ferrous sulfate 325 mg p.o. b.i.d. 13. Diabetes mellitus. ADA 1800 diet CHECK Blood blood sugar. Continue with metformin 500 mg twice a day. On Insulin sliding scale. 14. Deep venous thrombosis prophylaxis. Patient is on Eliquis 5 mg twice a day. 15. Gastrointestinal prophylaxis. Protonix 40 mg p.o. daily. 16. Burning urination ...Urine analysis negative for UTI. 17. Leukocytosis on steroids will monitor. We are going to manage the patient on daily basis and make recommendations on daily basis. Check CBC with diff CMP in AM. Discussed Condition with: Patient Myron Woodward MD Nov 20, 2017 12:41
[2017-11-20] MEDS: CEFEPIME INJ 1,000 MG in SODIUM CHLORIDE 0.9% INJ 100 ML IV SCH ×2 (12:59→23:00)
[2017-11-20] MEDS: AZITHROMYCIN INJ 500 MG in SODIUM CHLOR 0.9% 250 ML INJ 250 ML IV SCH (13:02)
--- NOTE | 2017-11-20 15:01 | HHI.PR ---
Subjective Remarks ALERT UP IN CHAIR LESS SOB NO COUGH OR SPUTUM OCC WHEEZE Objective Vital Signs Date Time Temp Pulse Resp B/P (MAP) Pulse Ox O2 Delivery O2 Flow Rate FiO2 11/20/17 13:07 98 Room Air 11/20/17 13:07 97.7 98 18 151/86 (107) 98 11/20/17 09:21 97 21 11/20/17 08:00 97.5 81 18 167/92 (117) 95 11/20/17 07:01 53 11/20/17 06:30 84 16 152/99 (116) 97 11/20/17 05:05 83 11/20/17 04:58 87 11/20/17 04:00 80 11/20/17 04:00 74 11/20/17 03:00 76 11/20/17 02:00 78 11/20/17 01:00 88 11/20/17 00:00 82 11/20/17 00:00 75 16 155/88 (110) 97 11/19/17 23:00 88 11/19/17 22:00 84 11/19/17 21:00 126 11/19/17 20:00 90 11/19/17 20:00 100 11/19/17 20:00 97.7 99 16 154/88 (110) 98 11/19/17 20:00 Room Air 21 11/19/17 19:40 95 21 11/19/17 19:00 112 11/19/17 18:38 109 11/19/17 17:33 101 11/19/17 16:07 111 11/19/17 15:36 97.9 104 20 147/87 (107) 96 11/19/17 15:36 125 11/19/17 15:28 98 21 I/O 11/19/17 11/19/17 11/19/17 11/20/17 11/20/17 11/20/17 07:00 15:00 23:00 07:00 15:00 23:00 Intake Total 1200 ml 840 ml 480 ml 100 ml Output Total 1475 ml 3700 ml 2100 ml Balance -275 ml -2860 ml -1620 ml 100 ml Intake Oral 1200 ml 840 ml 480 ml IV Total 100 ml Output Urine Total 1475 ml 3700 ml 2100 ml # Bowel Movements 1 1 Result Diagram: 11/19/1753211/19/17532 Objective Remarks GENERAL: SKIN: Warm and dry. HEAD: Atraumatic. Normocephalic. EYES: Pupils equal and round. No scleral icterus. No injection or drainage. ENT: No nasal bleeding or discharge. Mucous membranes pink and moist. NECK: Trachea midline. No JVD. CARDIOVASCULAR: Regular rate and rhythm. RESPIRATORY: No accessory muscle use. Clear to auscultation. Breath sounds equal bilaterally. GASTROINTESTINAL: Abdomen soft, non-tender, nondistended. Hepatic and splenic margins not palpable. MUSCULOSKELETAL: Extremities without clubbing, cyanosis, or edema. No obvious deformities. NEUROLOGICAL: Awake and alert. No obvious cranial nerve deficits. Motor grossly within normal limits. Five out of 5 muscle strength in the arms and legs. Normal speech. PSYCHIATRIC: Appropriate mood and affect; insight and judgment normal. Assessment and Plan Assessment and Plan COPD EXACERBATOIN [place] O2 NEEDED BRONCHODILATORS STEROIDS ANTIBX WILL FOLLOW Mary Hernandez MD Nov 20, 2017 15:01
--- NOTE | 2017-11-20 18:32 | PD.CARD.PN ---
Subjective Subjective Remarks Progress note 11/20/2017 SOB worse, no CP Objective Medications Current Medications Medications (Trade) Dose Ordered Sig/Gabi Route Start Time Stop Time Status Last Admin (NS Flush) 2 ml UNSCH PRN IV FLUSH 11/17/17 09:30 11/20/17 12:59 (NS Flush) 2 ml BID IV FLUSH 11/17/17 09:30 11/20/17 09:00 (Tylenol) 650 mg Q4H PRN PO 11/17/17 09:30 (Zofran Inj) 4 mg Q6H PRN IVP 11/17/17 09:30 (Narcan Inj) 0.4 mg UNSCH PRN IV PUSH 11/17/17 09:30 (Clare-Colace) 1 tab BID PO 11/17/17 09:30 11/20/17 09:12 (Milk Of Magnesia Liq) 30 ml Q12H PRN PO 11/17/17 09:30 (Senokot) 17.2 mg Q12H PRN PO 11/17/17 09:30 (Dulcolax Supp) 10 mg DAILY PRN RECTAL 11/17/17 09:30 (Lactulose Liq) 30 ml DAILY PRN PO 11/17/17 09:30 (Eliquis) 5 mg BID PO 11/17/17 09:30 11/20/17 09:12 (Lipitor) 20 mg HS PO 11/17/17 21:00 11/19/17 22:53 (Symbicort 160-4.5 Mcg Inh) 2 puff Q12HR INH 11/17/17 11:00 11/20/17 09:16 (Cardizem Cd) 360 mg DAILY PO 11/17/17 11:00 11/20/17 09:12 (Ferrous Sulfate) 325 mg BID PO 11/17/17 09:30 11/20/17 09:12 (Ativan) 0.5 mg BID PO 11/17/17 09:30 11/20/17 09:12 (Glucophage) 500 mg BIDPC PO 11/17/17 09:30 11/20/17 17:40 (Singulair) 10 mg HS PO 11/17/17 21:00 11/19/17 22:53 (KCl) 20 meq BID PO 11/17/17 11:00 11/20/17 09:12 (Flomax) 0.4 mg DAILY PO 11/17/17 11:00 11/20/17 09:12 (Albuterol Neb) 1.25 mg BID NEB PRN NEB 11/17/17 10:30 (Protonix) 40 mg HS PO 11/17/17 21:00 11/19/17 22:54 (SoluMEDROL INJ) 60 mg Q8HR IV PUSH 11/17/17 11:00 11/20/17 13:16 Azithromycin 500 mg/Sodium Chloride 250 ml @ 250 mls/hr Q24H IV 11/17/17 11:00 11/20/17 13:02 (Duoneb Neb) 1 ampule Q4HR NEB NEB 11/17/17 12:00 11/20/17 15:27 Cefepime HCl 1000 mg/Sodium Chloride 100 ml @ 200 mls/hr Q12H IV 11/17/17 11:00 11/20/17 12:59 (Lasix Inj) 40 mg BID@,18 IV PUSH 11/17/17 18:00 11/20/17 17:40 (D50w (Vial) Inj) 50 ml UNSCH PRN IV PUSH 11/17/17 11:30 (Glucagon Inj) 1 mg UNSCH PRN OTHER 11/17/17 11:30 (NovoLOG SUPPLEMENTAL SCALE) 1 ACHS SLIDING SCALE SQ 11/17/17 13:00 11/20/17 17:00 Vital Signs / I&O Vital Signs Date Time Temp Pulse Resp B/P (MAP) Pulse Ox O2 Delivery O2 Flow Rate FiO2 11/20/17 15:01 98.1 101 18 139/85 (103) 99 11/20/17 13:07 98 Room Air 11/20/17 13:07 97.7 98 18 151/86 (107) 98 11/20/17 09:21 97 21 11/20/17 08:00 97.5 81 18 167/92 (117) 95 11/20/17 07:01 53 11/20/17 06:30 84 16 152/99 (116) 97 11/20/17 05:05 83 11/20/17 04:58 87 11/20/17 04:00 80 11/20/17 04:00 74 11/20/17 03:00 76 11/20/17 02:00 78 11/20/17 01:00 88 11/20/17 00:00 82 11/20/17 00:00 75 16 155/88 (110) 97 11/19/17 23:00 88 11/19/17 22:00 84 11/19/17 21:00 126 11/19/17 20:00 90 11/19/17 20:00 100 11/19/17 20:00 97.7 99 16 154/88 (110) 98 11/19/17 20:00 Room Air 21 11/19/17 19:40 95 21 11/19/17 19:00 112 11/19/17 18:38 109 I/O 11/19/17 11/19/17 11/19/17 11/20/17 11/20/17 11/20/17 07:00 15:00 23:00 07:00 15:00 23:00 Intake Total 1200 ml 840 ml 480 ml 100 ml Output Total 1475 ml 3700 ml 2100 ml Balance -275 ml -2860 ml -1620 ml 100 ml Intake Oral 1200 ml 840 ml 480 ml IV Total 100 ml Output Urine Total 1475 ml 3700 ml 2100 ml # Bowel Movements 1 1 Physical Exam GENERAL: In NAD SKIN: Warm and dry. HEAD: Normocephalic. EYES: No scleral icterus. No injection or drainage. NECK: Supple, trachea midline. No JVD or lymphadenopathy. CARDIOVASCULAR: Regular rate and rhythm without murmurs, gallops, or rubs. RESPIRATORY: Breath sounds equal bilaterally. No accessory muscle use. Diffuse bilat wheezing GASTROINTESTINAL: Abdomen soft, non-tender, nondistended. MUSCULOSKELETAL: No cyanosis, or edema. Assessment and Plan Problem List: (1) Acute hypercapnic respiratory failure ICD Codes: J96.02 - Acute respiratory failure with hypercapnia Status: Acute (2) Acute asthma exacerbation ICD Codes: J45.901 - Unspecified asthma with (acute) exacerbation Status: Acute (3) History of pulmonary embolism ICD Codes: Z86.711 - Personal history of pulmonary embolism Status: Acute (4) Hypertension ICD Codes: I10 - Essential (primary) hypertension Status: Acute (5) Hyperlipidemia ICD Codes: E78.5 - Hyperlipidemia, unspecified Status: Chronic Assessment and Plan No new cardiac issues. Continue tx for COPD exacerbation, directed by Dr. Hernandez. Slow progress. Mild ST, no significant arrhythmias. Continue anticoagulation with Eliquis, has h/o DVT/PE. Continue monitoring. Increase activity. Not ready for discharge yet. Problem Qualifiers (1) Acute asthma exacerbation: Qualified Codes: J45.901 - Unspecified asthma with (acute) exacerbation Adam Moody MD Nov 20, 2017 18:32
[2017-11-20] MEDS: PANTOPRAZOLE SOD 40 MG DELAYED RELEASE TAB PO SCH (21:25)
[2017-11-20] MEDS: MONTELUKAST SODIUM 10 MG TAB PO SCH (21:25)
[2017-11-20] MEDS: ATORVASTATIN 20 MG TAB PO SCH (21:25)
[2017-11-21] VITALS (23 sets, daily range): BP systolic 124–161; BP diastolic 66–99; PULSE 74–126; RESP 18–20; TEMP 97.5–98.2; O2SAT 95–99
[2017-11-21] MEDS: RESP: ALBUTEROL 2.5 MG/IPRATROPIUM 0.5 MG NEB (SCH) NEB ×3 (03:33→11:33)
[2017-11-21 05:59] LABS: BASOPHIL % 0.2 % (0.0-2.0); HEMATOCRIT 41.2 % (39.0-51.0); HEMOGLOBIN 13.9 GM/DL (13.0-17.0); LYMPH % 3.4 % (9.0-44.0); LYMPHOCYTE # 0.5 TH/MM3 (1.0-4.8); MEAN CELL VOLUME 86.2 FL (80.0-100.0); MEAN CORPUSCULAR HGB CONC 33.6 % (32.0-36.0); MEAN PLATELET VOLUME 7.1 FL (7.0-11.0); MONO % 3.8 % (0.0-8.0); MONOCYTE # 0.6 TH/MM3 (0-0.9); NEUT % 92.6 % (16.0-70.0); PLATELET COUNT 294 TH/MM3 (150-450); RED BLOOD COUNT 4.78 MIL/MM3 (4.50-5.90); RED CELL DISTRIBUTION WIDTH 15.3 % (11.6-17.2); WHITE BLOOD COUNT 15.1 TH/MM3 (4.0-11.0)
[2017-11-21] MEDS: methylPREDNISolone SOD SUCC 125 MG/2 ML VIAL IV PUSH SCH ×3 (06:02→21:05)
[2017-11-21 06:18] LABS: ALBUMIN 3.3 GM/DL (3.4-5.0); AST (GOT) 14 U/L (15-37); BICARBONATE 26.4 MEQ/L (21.0-32.0); BLOOD UREA NITROGEN 24 MG/DL (7-18); CALCIUM 9.4 MG/DL (8.5-10.1); CHLORIDE 98 MEQ/L (98-107); CREATININE 1.03 MG/DL (0.60-1.30); GLOMERULAR FILTRATION RATE 76 ML/MIN (>89); GLUCOSE,RANDOM 174 MG/DL (74-106); SODIUM (NA) 136 MEQ/L (136-145)
[2017-11-21 06:19] LABS: ALT (GPT) 69 U/L (12-78)
[2017-11-21 06:20] LABS: ALKALINE PHOSPHATASE 99 U/L (45-117); TOTAL BILIRUBIN ADULT 0.4 MG/DL (0.2-1.0); TOTAL PROTEIN 5.8 GM/DL (6.4-8.2)
--- NOTE | 2017-11-21 07:22 | HHI.PR ---
Subjective Remarks ALERT LESS SOB NO COUGH OR SPUTUM OCC WHEEZE Objective Vital Signs Date Time Temp Pulse Resp B/P (MAP) Pulse Ox O2 Delivery O2 Flow Rate FiO2 11/21/17 04:00 97.7 96 18 144/90 (108) 96 11/21/17 04:00 84 11/21/17 00:00 89 11/21/17 00:00 97.5 88 18 151/86 (107) 96 11/20/17 20:27 97 11/20/17 20:00 Room Air 11/20/17 20:00 97.7 95 18 155/87 (109) 98 11/20/17 18:01 92 11/20/17 17:00 86 11/20/17 16:00 92 11/20/17 15:01 98.1 101 18 139/85 (103) 99 11/20/17 15:00 102 11/20/17 14:00 112 11/20/17 13:07 98 Room Air 11/20/17 13:07 97.7 98 18 151/86 (107) 98 11/20/17 13:00 114 11/20/17 12:00 92 11/20/17 11:00 88 11/20/17 10:00 126 11/20/17 09:21 97 21 11/20/17 09:00 72 11/20/17 08:00 97.5 81 18 167/92 (117) 95 11/20/17 08:00 84 I/O 11/20/17 11/20/17 11/20/17 11/21/17 11/21/17 11/21/17 07:00 15:00 23:00 07:00 15:00 23:00 Intake Total 480 ml 100 ml 1920 ml 820 ml Output Total 2100 ml 2050 ml 950 ml Balance -1620 ml 100 ml -130 ml -130 ml Intake Oral 480 ml 1920 ml 720 ml IV Total 100 ml 100 ml Output Urine Total 2100 ml 2050 ml 950 ml # Voids 6 # Bowel Movements 1 1 Result Diagram: 11/21/1751711/21/17517 Objective Remarks GENERAL: SKIN: Warm and dry. HEAD: Atraumatic. Normocephalic. EYES: Pupils equal and round. No scleral icterus. No injection or drainage. ENT: No nasal bleeding or discharge. Mucous membranes pink and moist. NECK: Trachea midline. No JVD. CARDIOVASCULAR: Regular rate and rhythm. RESPIRATORY: No accessory muscle use. Clear to auscultation. Breath sounds equal bilaterally. GASTROINTESTINAL: Abdomen soft, non-tender, nondistended. Hepatic and splenic margins not palpable. MUSCULOSKELETAL: Extremities without clubbing, cyanosis, or edema. No obvious deformities. NEUROLOGICAL: Awake and alert. No obvious cranial nerve deficits. Motor grossly within normal limits. Five out of 5 muscle strength in the arms and legs. Normal speech. PSYCHIATRIC: Appropriate mood and affect; insight and judgment normal. Assessment and Plan Assessment and Plan COPD EXACERBATION improving [place] O2 NEEDED BRONCHODILATORS STEROIDS ANTIBX increase activity Mary Hernandez MD Nov 21, 2017 07:22
[2017-11-21] MEDS: INSULIN ASPART SUPPLEMENTAL SCALE SQ SCH ×4 (08:00→20:34)
[2017-11-21] MEDS: TAMSULOSIN HCL 0.4 MG CAP PO SCH (08:33)
[2017-11-21] MEDS: DOCUSATE SODIUM 50 MG/SENNA 8.6 MG TAB PO SCH ×2 (08:33→20:28)
[2017-11-21] MEDS: FERROUS SULFATE 325 MG (65 MG ELEMENTAL IRON) TAB PO SCH ×2 (08:33→20:28)
[2017-11-21] MEDS: POTASSIUM CHLORIDE 20 MEQ CONTROLLED RELEASE TAB PO SCH ×2 (08:33→20:27)
[2017-11-21] MEDS: FUROSEMIDE 40 MG/4 ML VIAL IV PUSH SCH ×2 (08:33→17:32)
[2017-11-21] MEDS: APIXABAN 5 MG TABLET PO SCH ×2 (08:33→20:28)
[2017-11-21] MEDS: metFORMIN HCL 500 MG TAB PO SCH ×2 (08:34→17:32)
[2017-11-21] MEDS: BUDESONIDE-FORMOTEROL 160/4.5 MCG INHALER INH SCH ×2 (08:34→20:29)
[2017-11-21] MEDS: SODIUM CHLORIDE 0.9% FLUSH 10 ML FLUSH IV FLUSH SCH ×2 (08:34→20:28)
[2017-11-21] MEDS: LORazepam 0.5 MG TAB PO SCH ×2 (08:34→20:28)
[2017-11-21] MEDS: DILTIAZEM-CD 180 MG CAP ER PO SCH (08:34)
[2017-11-21 08:46] LABS: ACANTHOCYTES OCC (NORMAL); OVALOCYTES 1+ (NORMAL)
--- NOTE | 2017-11-21 11:37 | RADRPT ---
EXAM DATE/TIME: 11/21/2017 10:47 [facility] COMPARISON: No previous studies available for comparison. INDICATIONS : Bilateral arm pain. MEDICAL HISTORY : Myocardial infarction. Hypercholesterolemia. Arthritis. Sinus tachycardia. HTN. Pulmonary embolism. D VT. COPD. Asthma. Pneumonia. Dyspnea. GERD. Diabetes. Anxiety. Anticoagulant therapy, Eliquis. Blood transfusion. SURGICAL HISTORY : Tonsillectomy. Appendectomy. Bilateral hip surgeries x4. Bilateral hip replacement. ENCOUNTER: Initial ACUITY: 1 day PAIN SCORE: 1/10 LOCATION: Bilateral arms. FINDINGS: RIGHT UPPER EXTREMITY: There is spontaneous flow documented in the brachial, basilic, cephalic, axillary, and subclavian vei ns. The vessels are compressible and augmentation response is documented. No filling defects are se en. The flow is phasic with respiration. Direction of flow in the jugular vein is caudal. LEFT UPPER EXTREMITY: Nonocclusive thrombus is noted within the left basilic vein proximal to the intravenous catheter. The re is spontaneous flow documented in the brachial, cephalic, axillary, and subclavian veins. The ves sels are compressible and augmentation response is documented. No filling defects are seen. The rafa w is phasic with respiration. Direction of flow in the jugular vein is caudal. CONCLUSION: Nonocclusive thrombus is noted within the left basilic vein proximal to the intraveno us catheter. Samuel King MD on November 21, 2017 at 11:34 Board Certified Radiologist. This report was verified electronically.
[2017-11-21] MEDS: CEFEPIME INJ 1,000 MG in SODIUM CHLORIDE 0.9% INJ 100 ML IV SCH ×2 (12:06→23:28)
[2017-11-21] MEDS: AZITHROMYCIN INJ 500 MG in SODIUM CHLOR 0.9% 250 ML INJ 250 ML IV SCH (12:06)
[2017-11-21 12:40] LABS: TROPONIN I LESS THAN 0.02 NG/ML (0.02-0.05)
--- NOTE | 2017-11-21 16:31 | PD.CARD.PN ---
Subjective Subjective Remarks Moderate MURRY, atyp left upper chest discomfort, left arm pain, US w nonocclusive basilic vein thrombus Objective Medications Current Medications Medications (Trade) Dose Ordered Sig/Gabi Route Start Time Stop Time Status Last Admin (NS Flush) 2 ml UNSCH PRN IV FLUSH 11/17/17 09:30 11/20/17 12:59 (NS Flush) 2 ml BID IV FLUSH 11/17/17 09:30 11/21/17 08:34 (Tylenol) 650 mg Q4H PRN PO 11/17/17 09:30 (Zofran Inj) 4 mg Q6H PRN IVP 11/17/17 09:30 (Narcan Inj) 0.4 mg UNSCH PRN IV PUSH 11/17/17 09:30 (Clare-Colace) 1 tab BID PO 11/17/17 09:30 11/21/17 08:33 (Milk Of Magnesia Liq) 30 ml Q12H PRN PO 11/17/17 09:30 (Senokot) 17.2 mg Q12H PRN PO 11/17/17 09:30 (Dulcolax Supp) 10 mg DAILY PRN RECTAL 11/17/17 09:30 (Lactulose Liq) 30 ml DAILY PRN PO 11/17/17 09:30 (Eliquis) 5 mg BID PO 11/17/17 09:30 11/21/17 08:33 (Lipitor) 20 mg HS PO 11/17/17 21:00 11/20/17 21:25 (Symbicort 160-4.5 Mcg Inh) 2 puff Q12HR INH 11/17/17 11:00 11/21/17 08:34 (Cardizem Cd) 360 mg DAILY PO 11/17/17 11:00 11/21/17 08:34 (Ferrous Sulfate) 325 mg BID PO 11/17/17 09:30 11/21/17 08:33 (Ativan) 0.5 mg BID PO 11/17/17 09:30 11/21/17 08:34 (Glucophage) 500 mg BIDPC PO 11/17/17 09:30 11/21/17 08:34 (Singulair) 10 mg HS PO 11/17/17 21:00 11/20/17 21:25 (KCl) 20 meq BID PO 11/17/17 11:00 11/21/17 08:33 (Flomax) 0.4 mg DAILY PO 11/17/17 11:00 11/21/17 08:33 (Albuterol Neb) 1.25 mg BID NEB PRN NEB 11/17/17 10:30 (Protonix) 40 mg HS PO 11/17/17 21:00 11/20/17 21:25 (SoluMEDROL INJ) 60 mg Q8HR IV PUSH 11/17/17 11:00 11/21/17 14:04 Azithromycin 500 mg/Sodium Chloride 250 ml @ 250 mls/hr Q24H IV 11/17/17 11:00 11/21/17 12:06 Cefepime HCl 1000 mg/Sodium Chloride 100 ml @ 200 mls/hr Q12H IV 11/17/17 11:00 11/21/17 12:06 (Lasix Inj) 40 mg BID@09,18 IV PUSH 11/17/17 18:00 11/21/17 08:33 (D50w (Vial) Inj) 50 ml UNSCH PRN IV PUSH 11/17/17 11:30 (Glucagon Inj) 1 mg UNSCH PRN OTHER 11/17/17 11:30 (NovoLOG SUPPLEMENTAL SCALE) 1 ACHS SLIDING SCALE SQ 11/17/17 13:00 11/21/17 12:00 Vital Signs / I&O Vital Signs Date Time Temp Pulse Resp B/P (MAP) Pulse Ox O2 Delivery O2 Flow Rate FiO2 11/21/17 15:39 98.0 88 18 142/79 (100) 95 11/21/17 14:00 106 11/21/17 13:00 104 11/21/17 12:00 110 11/21/17 11:45 97.9 111 18 130/94 (106) 95 11/21/17 11:00 101 11/21/17 10:00 126 11/21/17 09:00 96 11/21/17 08:30 98.2 100 18 124/66 (85) 97 11/21/17 08:30 97 Room Air 11/21/17 08:00 118 11/21/17 07:42 96 11/21/17 07:00 74 11/21/17 04:00 97.7 96 18 144/90 (108) 96 3/16/18 04:00 84 11/21/17 00:00 89 11/21/17 00:00 97.5 88 18 151/86 (107) 96 11/20/17 20:27 97 11/20/17 20:00 Room Air 11/20/17 20:00 97.7 95 18 155/87 (109) 98 11/20/17 18:01 92 11/20/17 17:00 86 I/O 11/20/17 11/20/17 11/20/17 11/21/17 11/21/17 11/21/17 06:59 14:59 22:59 06:59 14:59 22:59 Intake Total 480 ml 100 ml 1920 ml 820 ml Output Total 2100 ml 2050 ml 950 ml Balance -1620 ml 100 ml -130 ml -130 ml Intake Oral 480 ml 1920 ml 720 ml IV Total 100 ml 100 ml Output Urine Total 2100 ml 2050 ml 950 ml # Voids 6 # Bowel Movements 1 1 Physical Exam GENERAL: In NAD SKIN: Warm and dry. HEAD: Normocephalic. EYES: No scleral icterus. No injection or drainage. NECK: Supple, trachea midline. No JVD or lymphadenopathy. CARDIOVASCULAR: Regular rate and rhythm without murmurs, gallops, or rubs. RESPIRATORY: Breath sounds equal bilaterally. No accessory muscle use. Diffuse bilat wheezing GASTROINTESTINAL: Abdomen soft, non-tender, nondistended. MUSCULOSKELETAL: No cyanosis, or edema. Laboratory Laboratory Tests Test 11/21/17 05:18 11/21/17 11:45 White Blood Count 15.1 TH/MM3 Red Blood Count 4.78 MIL/MM3 Hemoglobin 13.9 GM/DL Hematocrit 41.2 % Mean Corpuscular Volume 86.2 FL Mean Corpuscular Hemoglobin 29.0 PG Mean Corpuscular Hemoglobin Concent 33.6 % Red Cell Distribution Width 15.3 % Platelet Count 294 TH/MM3 Mean Platelet Volume 7.1 FL Neutrophils (%) (Auto) 92.6 % Lymphocytes (%) (Auto) 3.4 % Monocytes (%) (Auto) 3.8 % Eosinophils (%) (Auto) 0.0 % Basophils (%) (Auto) 0.2 % Neutrophils # (Auto) 14.0 TH/MM3 Lymphocytes # (Auto) 0.5 TH/MM3 Monocytes # (Auto) 0.6 TH/MM3 Eosinophils # (Auto) 0.0 TH/MM3 Basophils # (Auto) 0.0 TH/MM3 CBC Comment AUTO DIFF Differential Comment AUTO DIFF CONFIRMED Platelet Estimate NORMAL Platelet Morphology Comment NORMAL Ovalocytes 1+ Acanthocytes OCC Blood Urea Nitrogen 24 MG/DL Creatinine 1.03 MG/DL Random Glucose 174 MG/DL Total Protein 5.8 GM/DL Albumin 3.3 GM/DL Calcium Level 9.4 MG/DL Alkaline Phosphatase 99 U/L Aspartate Amino Transf (AST/SGOT) 14 U/L Alanine Aminotransferase (ALT/SGPT) 69 U/L Total Bilirubin 0.4 MG/DL Sodium Level 136 MEQ/L Potassium Level 4.0 MEQ/L Chloride Level 98 MEQ/L Carbon Dioxide Level 26.4 MEQ/L Anion Gap 12 MEQ/L Estimat Glomerular Filtration Rate 76 ML/MIN Total Creatine Kinase 61 U/L Troponin I LESS THAN 0.02 NG/ML Imaging Last 24 hours Impressions Upper Extremity Ultrasound 11/21/17 0000 Signed Impressions: Service Date/Time: Tuesday, November 21, 2017 10:47 - CONCLUSION: Nonocclusive thrombus is noted within the left basilic vein proximal to the intravenous catheter. Samuel King MD Assessment and Plan Problem List: (1) Acute hypercapnic respiratory failure ICD Codes: J96.02 - Acute respiratory failure with hypercapnia Status: Acute (2) Acute asthma exacerbation ICD Codes: J45.901 - Unspecified asthma with (acute) exacerbation Status: Acute (3) History of pulmonary embolism ICD Codes: Z86.711 - Personal history of pulmonary embolism Status: Acute (4) Hypertension ICD Codes: I10 - Essential (primary) hypertension Status: Acute (5) Hyperlipidemia ICD Codes: E78.5 - Hyperlipidemia, unspecified Status: Chronic Assessment and Plan Continue tx for COPD exacerbation, as planned by Dr. Hernandez. Slow progress. Tele with mild ST, no significant arrhythmias. Continue anticoagulation with Eliquis , has h/o DVT/PE; US w left basilic vein nonocclusive thrombus. Consider adding baby ASA to Eliquis. Continue monitoring. Increase activity, PT. Problem Qualifiers (1) Acute asthma exacerbation: Qualified Codes: J45.901 - Unspecified asthma with (acute) exacerbation Adam Moody MD Nov 21, 2017 16:31
--- NOTE | 2017-11-21 18:13 | HHI.PR ---
Subjective History of Present Illness Patient still SOB / Wheezing cardiology/ Pulmonary input noted have leukocytosis will monitor. c/o oral thrush start Nystatin. c/o pain left arm catheter area. checked venous doppler of upper extremity shows basilic vein thrombosis consulted hematology discussed with Dr Manzo. Review of Systems Constitutional Constitutional: Fatigue, Weakness Throat Throat Remarks oral thrush Pulmonary Respiratory: Coughing, Shortness of Breath, Wheezing Cardiology CV Remarks leg edema. Musculoskeletal MS Remarks Leg edema. Vitals/Results Vital Signs Vital Signs Date Time Temp Pulse Resp B/P (MAP) Pulse Ox O2 Delivery O2 Flow Rate FiO2 11/21/17 15:39 98.0 88 18 142/79 (100) 95 11/21/17 14:00 106 11/21/17 13:00 104 11/21/17 12:00 110 11/21/17 11:45 97.9 111 18 130/94 (106) 95 11/21/17 11:00 101 11/21/17 10:00 126 11/21/17 09:00 96 11/21/17 08:30 98.2 100 18 124/66 (85) 97 11/21/17 08:30 97 Room Air 11/21/17 08:00 118 11/21/17 07:42 96 11/21/17 07:00 74 11/21/17 04:00 97.7 96 18 144/90 (108) 96 11/21/17 04:00 84 11/21/17 00:00 89 11/21/17 00:00 97.5 88 18 151/86 (107) 96 11/20/17 20:27 97 11/20/17 20:00 Room Air 11/20/17 20:00 97.7 95 18 155/87 (109) 98 CBC/BMP: 11/21/17 0518 11/21/17 0518 Lab Results Laboratory Tests Test 11/21/17 05:18 11/21/17 11:45 11/21/17 17:45 White Blood Count 15.1 TH/MM3 Red Blood Count 4.78 MIL/MM3 Hemoglobin 13.9 GM/DL Hematocrit 41.2 % Mean Corpuscular Volume 86.2 FL Mean Corpuscular Hemoglobin 29.0 PG Mean Corpuscular Hemoglobin Concent 33.6 % Red Cell Distribution Width 15.3 % Platelet Count 294 TH/MM3 Mean Platelet Volume 7.1 FL Neutrophils (%) (Auto) 92.6 % Lymphocytes (%) (Auto) 3.4 % Monocytes (%) (Auto) 3.8 % Eosinophils (%) (Auto) 0.0 % Basophils (%) (Auto) 0.2 % Neutrophils # (Auto) 14.0 TH/MM3 Lymphocytes # (Auto) 0.5 TH/MM3 Monocytes # (Auto) 0.6 TH/MM3 Eosinophils # (Auto) 0.0 TH/MM3 Basophils # (Auto) 0.0 TH/MM3 CBC Comment AUTO DIFF Differential Comment AUTO DIFF CONFIRMED Platelet Estimate NORMAL Platelet Morphology Comment NORMAL Ovalocytes 1+ Acanthocytes OCC Blood Urea Nitrogen 24 MG/DL Creatinine 1.03 MG/DL Random Glucose 174 MG/DL Total Protein 5.8 GM/DL Albumin 3.3 GM/DL Calcium Level 9.4 MG/DL Alkaline Phosphatase 99 U/L Aspartate Amino Transf (AST/SGOT) 14 U/L Alanine Aminotransferase (ALT/SGPT) 69 U/L Total Bilirubin 0.4 MG/DL Sodium Level 136 MEQ/L Potassium Level 4.0 MEQ/L Chloride Level 98 MEQ/L Carbon Dioxide Level 26.4 MEQ/L Anion Gap 12 MEQ/L Estimat Glomerular Filtration Rate 76 ML/MIN Total Creatine Kinase 61 U/L Troponin I LESS THAN 0.02 NG/ML Physical Exam General General Appearance: Well Developed, Well Nourished, No Acute Distress Eyes Eye Exam: Pupils Equal, Pupils Reactive, Sclera White, Extraocular Movement Intact Throat Throat Exam: Oral Pharynx Normal Throat Remarks oral thrush Neck Neck Exam: Neck Supple, Trachea Midline Pulmonary Resp Exam: Crackles, Rhonchi, Decreased Bases, Diminished Breath Sounds Resp Remarks Bilateral wheezing. Gastrointestinal/Abdomen GI Exam: Soft, Non-Tender, Bowel Sounds Present Musculoskeletal MS Exam: Joints Intact Integumentary Skin Exam: Clear, Warm, Dry, Intact Extremeties Extremities Exam: Moderate Edema Neurologic Neuro Exam: Alert, Awake, Oriented, Speech Clear, Moving All Extremities, No Focal Deficits Psychiatric Psych Exam: Appropriate Responses VTE Prophylaxis VTE Remarks Eliquis. PUD Prophylasis PUD Prophylaxis: Protonix Assessment/Plan Assessment/Plan ASSESSMENT AND PLAN: 1. This is a 52-year-old male, came to the ER, diagnosed with acute respiratory distress/acute respiratory failure, is in acute chronic obstructive pulmonary disease exacerbation. Patient was on BiPAP. Pulmonary input noted. Patient also on DuoNeb nebulization every 4 hours, Solu-Medrol 60 mg IV every 8 hours and also on Zithromax 500 mg IV daily and cefepime 1 g IV b.i.d. Further recommendation per pulmonary. 2. Chronic obstructive pulmonary disease exacerbation. Patient is on Solu-Medrol IV, IV antibiotic and DuoNeb nebulization. 3. History of hyperlipidemia. Continue with Lipitor 20 mg p.o. daily. 4. History of gastroesophageal reflux disease. Protonix 40 mg p.o. daily. 5. History of leg edema. on Lasix 40 mg IV b.i.d. 6. History of chronic obstructive pulmonary disease. Continue home medication. 7. History of hypertension. Continue with diltiazem 360 mg p.o. daily. 8. History of benign prostatic hypertrophy. Continue with Flomax 0.4 mg p.o. daily. 9. History of depression. Continue home medication. 10. Anxiety. Continue home medication. 11. Deep venous thrombosis and pulmonary embolism. Continue with Eliquis 5 mg twice a day. 12. History of Iron deficiency anemia. Continue with ferrous sulfate 325 mg p.o. b.i.d. 13. Diabetes mellitus. ADA 1800 diet CHECK Blood blood sugar. Continue with metformin 500 mg twice a day. On Insulin sliding scale. 14. Deep venous thrombosis prophylaxis. Patient is on Eliquis 5 mg twice a day. 15. Gastrointestinal prophylaxis. Protonix 40 mg p.o. daily. 16. Burning urination ...Urine analysis negative for UTI. 17. Leukocytosis on steroids will monitor. 18. Oral Thrush start Nystatin. 19. Left arm pain at catheter area checked venous doppler of upper extremity shows basilic vein thrombosis consulted hematology discussed with Dr Manzo. We are going to manage the patient on daily basis and make recommendations on daily basis. Check CBC with diff CMP in AM. Discussed Condition with: Patient Myron Woodward MD Nov 21, 2017 18:13
[2017-11-21 18:22] LABS: TROPONIN I LESS THAN 0.02 NG/ML (0.02-0.05)
[2017-11-21] MEDS: ATORVASTATIN 20 MG TAB PO SCH (20:28)
[2017-11-21] MEDS: PANTOPRAZOLE SOD 40 MG DELAYED RELEASE TAB PO SCH (20:28)
[2017-11-21] MEDS: MONTELUKAST SODIUM 10 MG TAB PO SCH (20:28)
[2017-11-21] MEDS: NYSTATIN SUSP 500,000 U/5 ML CUP SWISH-SWAL SCH (20:29)
[2017-11-21] MEDS: RESP: ALBUTEROL 1.25 MG/3 ML NEB (PRN) NEB (22:04)
[2017-11-22] VITALS (27 sets, daily range): BP systolic 133–168; BP diastolic 82–97; PULSE 68–97; RESP 18–20; TEMP 98.2–98.4; O2SAT 96–98
[2017-11-22] MEDS: RESP: ALBUTEROL 2.5 MG/IPRATROPIUM 0.5 MG NEB (SCH) NEB ×6 (03:58→19:45)
[2017-11-22 05:22] LABS: AUTOMATED NEUTROPHIL # 14.3 TH/MM3 (1.8-7.7); BASOPHIL % 0.2 % (0.0-2.0); HEMOGLOBIN 14.3 GM/DL (13.0-17.0); LYMPH % 3.1 % (9.0-44.0); LYMPHOCYTE # 0.5 TH/MM3 (1.0-4.8); MEAN CELL VOLUME 86.8 FL (80.0-100.0); MEAN CORPUSCULAR HEMOGLOBIN 28.9 PG (27.0-34.0); MEAN CORPUSCULAR HGB CONC 33.3 % (32.0-36.0); MEAN PLATELET VOLUME 7.1 FL (7.0-11.0); MONO % 3.1 % (0.0-8.0); MONOCYTE # 0.5 TH/MM3 (0-0.9); NEUT % 93.6 % (16.0-70.0); PLATELET COUNT 281 TH/MM3 (150-450); RED BLOOD COUNT 4.96 MIL/MM3 (4.50-5.90); WHITE BLOOD COUNT 15.2 TH/MM3 (4.0-11.0)
[2017-11-22 06:07] LABS: ALBUMIN 3.3 GM/DL (3.4-5.0); ALKALINE PHOSPHATASE 102 U/L (45-117); ALT (GPT) 67 U/L (12-78); AST (GOT) 14 U/L (15-37); BICARBONATE 23.8 MEQ/L (21.0-32.0); BLOOD UREA NITROGEN 28 MG/DL (7-18); CALCIUM 8.6 MG/DL (8.5-10.1); CHLORIDE 98 MEQ/L (98-107); CREATININE 1.08 MG/DL (0.60-1.30); GLOMERULAR FILTRATION RATE 72 ML/MIN (>89); GLUCOSE,RANDOM 198 MG/DL (74-106); SODIUM (NA) 135 MEQ/L (136-145); TOTAL BILIRUBIN ADULT 0.4 MG/DL (0.2-1.0); TOTAL PROTEIN 5.7 GM/DL (6.4-8.2)
[2017-11-22] MEDS: methylPREDNISolone SOD SUCC 125 MG/2 ML VIAL IV PUSH SCH (06:26)
[2017-11-22 06:48] LABS: BANDS 3 % (0-6); LYMPHOCYTES 8 % (9-44); METAMYELOCYTES 2 % (0-1); MONOCYTES 1 % (0-8); MYELOCYTES 2 % (0-0); NEUTROPHIL # MANUAL DIFF 13.8 TH/MM3 (1.8-7.7); POLYS (SEG NEUTROPHILS) 84 % (16-70)
[2017-11-22 06:49] LABS: TOXIC VACUOLATION PRESENT (NONE SEEN)
[2017-11-22 06:52] LABS: ACANTHOCYTES OCC (NORMAL); OVALOCYTES 1+ (NORMAL)
[2017-11-22] MEDS: INSULIN ASPART SUPPLEMENTAL SCALE SQ SCH ×4 (08:00→20:49)
[2017-11-22] MEDS: TAMSULOSIN HCL 0.4 MG CAP PO SCH (09:31)
[2017-11-22] MEDS: FERROUS SULFATE 325 MG (65 MG ELEMENTAL IRON) TAB PO SCH ×2 (09:31→20:46)
[2017-11-22] MEDS: DOCUSATE SODIUM 50 MG/SENNA 8.6 MG TAB PO SCH ×2 (09:31→20:46)
[2017-11-22] MEDS: BUDESONIDE-FORMOTEROL 160/4.5 MCG INHALER INH SCH ×2 (09:31→20:46)
[2017-11-22] MEDS: LORazepam 0.5 MG TAB PO SCH ×2 (09:32→20:46)
[2017-11-22] MEDS: DILTIAZEM-CD 180 MG CAP ER PO SCH (09:32)
[2017-11-22] MEDS: metFORMIN HCL 500 MG TAB PO SCH ×2 (09:32→17:51)
[2017-11-22] MEDS: POTASSIUM CHLORIDE 20 MEQ CONTROLLED RELEASE TAB PO SCH ×2 (09:32→20:46)
[2017-11-22] MEDS: APIXABAN 5 MG TABLET PO SCH ×2 (09:33→20:47)
[2017-11-22] MEDS: FUROSEMIDE 40 MG/4 ML VIAL IV PUSH SCH ×2 (09:33→17:53)
[2017-11-22] MEDS: SODIUM CHLORIDE 0.9% FLUSH 10 ML FLUSH IV FLUSH SCH ×2 (09:34→20:48)
[2017-11-22] MEDS: NYSTATIN SUSP 500,000 U/5 ML CUP SWISH-SWAL SCH ×4 (09:34→20:46)
[2017-11-22] MEDS: CEFEPIME INJ 1,000 MG in SODIUM CHLORIDE 0.9% INJ 100 ML IV SCH ×2 (11:19→20:53)
[2017-11-22] MEDS: AZITHROMYCIN INJ 500 MG in SODIUM CHLOR 0.9% 250 ML INJ 250 ML IV SCH (12:31)
--- NOTE | 2017-11-22 15:03 | HHI.PR ---
Subjective History of Present Illness Patient still SOB / Wheezing cardiology/ Pulmonary input noted have leukocytosis will monitor. check venous doppler of lower extremity. Review of Systems Constitutional Constitutional: Fatigue, Weakness Throat Throat Remarks Oral thrush. Pulmonary Respiratory: Coughing, Shortness of Breath, Wheezing Cardiology CV Remarks leg edema. Musculoskeletal MS Remarks Leg edema. Vitals/Results Vital Signs Vital Signs Date Time Temp Pulse Resp B/P (MAP) Pulse Ox O2 Delivery O2 Flow Rate FiO2 11/22/17 14:00 82 11/22/17 13:00 84 11/22/17 12:47 98.4 96 20 146/86 (106) 97 11/22/17 12:47 Room Air 11/22/17 12:00 80 11/22/17 11:00 84 11/22/17 10:00 84 11/22/17 09:30 98.2 90 18 133/97 (109) 97 11/22/17 09:00 82 11/22/17 08:30 97 11/22/17 08:00 84 11/22/17 07:22 84 11/22/17 06:00 79 11/22/17 05:00 74 11/22/17 04:00 98.3 68 18 162/89 (113) 97 11/22/17 04:00 68 11/22/17 04:00 Room Air 11/22/17 03:00 74 11/22/17 02:00 79 11/22/17 01:00 75 11/22/17 00:00 Room Air 11/22/17 00:00 74 11/22/17 00:00 98.4 74 20 168/93 (118) 98 11/21/17 23:00 81 11/21/17 22:05 96 11/21/17 22:00 95 11/21/17 21:00 92 11/21/17 20:00 98.2 83 20 161/99 (119) 99 11/21/17 20:00 Room Air 11/21/17 20:00 83 11/21/17 18:00 88 11/21/17 17:00 84 11/21/17 16:00 92 11/21/17 15:39 98.0 88 18 142/79 (100) 95 CBC/BMP: 11/22/17 0455 11/22/17 0455 Lab Results Laboratory Tests Test 11/21/17 17:45 11/22/17 04:55 Total Creatine Kinase 57 U/L Troponin I LESS THAN 0.02 NG/ML White Blood Count 15.2 TH/MM3 Red Blood Count 4.96 MIL/MM3 Hemoglobin 14.3 GM/DL Hematocrit 43.0 % Mean Corpuscular Volume 86.8 FL Mean Corpuscular Hemoglobin 28.9 PG Mean Corpuscular Hemoglobin Concent 33.3 % Red Cell Distribution Width 15.0 % Platelet Count 281 TH/MM3 Mean Platelet Volume 7.1 FL Neutrophils (%) (Auto) 93.6 % Lymphocytes (%) (Auto) 3.1 % Monocytes (%) (Auto) 3.1 % Eosinophils (%) (Auto) 0.0 % Basophils (%) (Auto) 0.2 % Neutrophils # (Auto) 14.3 TH/MM3 Lymphocytes # (Auto) 0.5 TH/MM3 Monocytes # (Auto) 0.5 TH/MM3 Eosinophils # (Auto) 0.0 TH/MM3 Basophils # (Auto) 0.0 TH/MM3 CBC Comment AUTO DIFF Differential Total Cells Counted 100 Neutrophils % (Manual) 84 % Band Neutrophils % 3 % Lymphocytes % 8 % Monocytes % 1 % Neutrophils # (Manual) 13.8 TH/MM3 Metamyelocytes 2 % Myelocytes 2 % Differential Comment FINAL DIFF MANUAL Toxic Vacuolation PRESENT Platelet Estimate NORMAL Platelet Morphology Comment NORMAL Ovalocytes 1+ Acanthocytes OCC Blood Urea Nitrogen 28 MG/DL Creatinine 1.08 MG/DL Random Glucose 198 MG/DL Total Protein 5.7 GM/DL Albumin 3.3 GM/DL Calcium Level 8.6 MG/DL Alkaline Phosphatase 102 U/L Aspartate Amino Transf (AST/SGOT) 14 U/L Alanine Aminotransferase (ALT/SGPT) 67 U/L Total Bilirubin 0.4 MG/DL Sodium Level 135 MEQ/L Potassium Level 4.2 MEQ/L Chloride Level 98 MEQ/L Carbon Dioxide Level 23.8 MEQ/L Anion Gap 13 MEQ/L Estimat Glomerular Filtration Rate 72 ML/MIN Physical Exam General General Appearance: Well Developed, Well Nourished, No Acute Distress Eyes Eye Exam: Pupils Equal, Pupils Reactive, Sclera White, Extraocular Movement Intact Throat Throat Exam: Oral Pharynx Normal Throat Remarks Oral thrush. Neck Neck Exam: Neck Supple, Trachea Midline Pulmonary Resp Exam: Crackles, Rhonchi, Decreased Bases, Diminished Breath Sounds Resp Remarks Bilateral wheezing. Gastrointestinal/Abdomen GI Exam: Soft, Non-Tender, Bowel Sounds Present Musculoskeletal MS Exam: Joints Intact Integumentary Skin Exam: Clear, Warm, Dry, Intact Extremeties Extremities Exam: Moderate Edema Neurologic Neuro Exam: Alert, Awake, Oriented, Speech Clear, Moving All Extremities, No Focal Deficits Psychiatric Psych Exam: Appropriate Responses VTE Prophylaxis VTE Remarks Eliquis. PUD Prophylasis PUD Prophylaxis: Protonix Assessment/Plan Assessment/Plan ASSESSMENT AND PLAN: 1. This is a 52-year-old male, came to the ER, diagnosed with acute respiratory distress/acute respiratory failure, is in acute chronic obstructive pulmonary disease exacerbation. Patient was on BiPAP. Pulmonary input noted. Patient also on DuoNeb nebulization every 4 hours, Solu-Medrol 60 mg IV every 8 hours and also on Zithromax 500 mg IV daily and cefepime 1 g IV b.i.d. Further recommendation per pulmonary. 2. Chronic obstructive pulmonary disease exacerbation. Patient is on Solu-Medrol IV, IV antibiotic and DuoNeb nebulization. 3. History of hyperlipidemia. Continue with Lipitor 20 mg p.o. daily. 4. History of gastroesophageal reflux disease. Protonix 40 mg p.o. daily. 5. History of leg edema. on Lasix 40 mg IV b.i.d. 6. History of chronic obstructive pulmonary disease. Continue home medication. 7. History of hypertension. Continue with diltiazem 360 mg p.o. daily. 8. History of benign prostatic hypertrophy. Continue with Flomax 0.4 mg p.o. daily. 9. History of depression. Continue home medication. 10. Anxiety. Continue home medication. 11. Deep venous thrombosis and pulmonary embolism. Continue with Eliquis 5 mg twice a day. 12. History of Iron deficiency anemia. Continue with ferrous sulfate 325 mg p.o. b.i.d. 13. Diabetes mellitus. ADA 1800 diet CHECK Blood blood sugar. Continue with metformin 500 mg twice a day. On Insulin sliding scale. 14. Deep venous thrombosis prophylaxis. Patient is on Eliquis 5 mg twice a day. 15. Gastrointestinal prophylaxis. Protonix 40 mg p.o. daily. 16. Burning urination ...Urine analysis negative for UTI. 17. Leukocytosis on steroids will monitor. 18. Oral thrush on Nystatin. 19. Left upper extremity pain ...venous doppler shows basilic vein thrombosis no additional anticoagulation needed per hematology need to change IV site. We are going to manage the patient on daily basis and make recommendations on daily basis. Check CBC with diff CMP in AM. Discussed Condition with: Patient Myron Woodward MD Nov 22, 2017 15:02
--- NOTE | 2017-11-22 20:15 | MB ---
cc: Flaco Rashid MD DATE OF CONSULT: REASON FOR CONSULTATION: I have been asked whether aspirin should be added to the patient's regimen of Eliquis. PATIENT PROFILE: The patient is a 52-year-old male. He is . He has lived in [place] for 30 years. He has 1 son. He is not able to work. He is on disability due to a recurrent deep vein thrombosis and lung disease. He does not smoke. He does not drink. HISTORY OF PRESENT ILLNESS: The patient is a 52-year-old male with severe COPD, a history of DVT on at least 2 occasions and a pulmonary embolus. He was admitted due to an exacerbation of his breathing. On 11/17/2017, he had a chest x-ray of the lung, which was unremarkable. He had an IV placed in the left arm at the antecubital fossa. Due to his previous history of DVT and pulmonary emboli he takes Eliquis 5 mg p.o. b.i.d. This has worked well in preventing further thrombosis. Yesterday, he noted slight swelling and tenderness of the left arm. This resulted in an ultrasound being performed on 11/21/2017. This showed a nonocclusive thrombus noted within the left basilic vein proximal to the intravenous catheter. There was spontaneous flow documented in the brachiocephalic, axillary and subclavian veins. The patient currently takes apixaban 5 mg twice a day. I have been asked whether aspirin should be added to the regimen. PAST SURGICAL HISTORY: 1. Right hip replacement. 2. Operation left hip. 3. Appendectomy. PAST MEDICAL HISTORY: 1. Severe bronchial asthma. 2. History of deep venous thrombosis and pulmonary emboli. 3. Elevated cholesterol. 4. Diabetes, taking metformin. ALLERGIES: DOXYCYCLINE, MEPERIDINE, TETRACYCLINE. FAMILY HISTORY: Noncontributory. REVIEW OF SYSTEMS: Notable for exertional shortness of breath, chronic swelling lower extremities, recent discomfort in the left upper arm and some generalized arthritis. LABORATORY STUDIES: 11/22 hemoglobin 14, white count 15,000, platelets are 281,000. 11/17/2017. PT 10, PTT 24. Electrolytes, BUN and creatinine, liver function tests notable for glucose of 198. Liver function tests are normal. PHYSICAL EXAMINATION: GENERAL: Reveals a pleasant gentleman. He has mild audible wheezing. VITAL SIGNS: Blood pressure 140/80, respiratory rate 20, pulse 80, afebrile, 97% saturation. HEENT: Head is normocephalic. Sclerae and conjunctivae are normal. Oropharynx unremarkable. NECK: No adenopathy. HEART: Regular rate and rhythm. LUNGS: Mild to moderate expiratory wheezes bilaterally. ABDOMEN: Obese. No hepatosplenomegaly. EXTREMITIES: +1 edema lower extremities bilaterally. Varicose veins are prominent involving the lower extremity. The examination of the left upper extremity reveals very minimal if any swelling of the left arm. There is slight tenderness of the left arm above the elbow. At the antecubital fossa, there is an IV in place, which would be about the point that the cephalic vein is present. ASSESSMENT: 1. A 52-year-old male with deep venous thrombosis and pulmonary emboli, which has been well controlled with Eliquis 5 mg p.o. b.i.d. He now has a superficial venous thrombosis involving the cephalic vein of the left arm. This occurs at approximately the site where the catheter was placed at the level of the elbow. RECOMMENDATIONS: I would not add aspirin. The reason the thrombus occurred is the presence of the catheter and aspirin will only increase future bleeding risk. PLAN: 1. Continue Eliquis 5 mg p.o. b.i.d. 2. Do not add aspirin. 3. Remove the IV from the left arm and place it in the right arm. 4. The above was discussed with Dr. Schmidt who is the payroll auditor and the patient's hospitalist, Dr. Woodward. Flaco Rashid MD RW/rt , 06:10 PM , 08:14 PM PAUL
[2017-11-22] MEDS: predniSONE 20 MG TAB PO SCH (20:46)
[2017-11-22] MEDS: MONTELUKAST SODIUM 10 MG TAB PO SCH (20:46)
[2017-11-22] MEDS: PANTOPRAZOLE SOD 40 MG DELAYED RELEASE TAB PO SCH (20:47)
[2017-11-22] MEDS: ATORVASTATIN 20 MG TAB PO SCH (20:47)
--- NOTE | 2017-11-22 22:10 | RADRPT ---
EXAM DATE/TIME: 11/22/2017 20:57 [facility] COMPARISON: US ARM BILATERAL VENOUS DOPPLER, November 21, 2017, 10:47. INDICATIONS : Bilateral leg swelling. MEDICAL HISTORY : Myocardial infarction. Hypercholesterolemia. Arthritis. Sinus tachycardia. HTN. Pulmonary embolism. D VT. COPD. Asthma. Pneumonia. Dyspnea. GERD. Diabetes. Anxiety. Anticoagulant therapy, Eliquis. Blood transfusion. SURGICAL HISTORY : Tonsillectomy. Appendectomy. Bilateral hip surgeries x4. Bilateral hip replacement. ENCOUNTER: Subsequent ACUITY: 2 day PAIN SCORE: 2/10 LOCATION: Bilateral legs. TECHNIQUE: Venous ultrasound of the left and right leg was performed from the inguinal ligament to the proximal calf. Real-time, color Doppler and spectral tracing, compression and augmentation techniques were us ed. FINDINGS: RIGHT LEG: There is normal compressibility of the deep venous system from the inguinal region to the proximal ca lf. No echogenic clot is seen in the lumen of the common femoral, femoral, popliteal, and posterior tibial veins. There is a normal response of the venous system to proximal and distal augmentation an d respiration. LEFT LEG: There is normal compressibility of the deep venous system from the inguinal region to the proximal ca lf. No echogenic clot is seen in the lumen of the common femoral, femoral, popliteal, and posterior tibial veins. There is a normal response of the venous system to proximal and distal augmentation an d respiration. CONCLUSION: 1. No DVT is identified. Braulio Hull MD on November 22, 2017 at 22:08 Board Certified Radiologist. This report was verified electronically.
[2017-11-23] VITALS (29 sets, daily range): BP systolic 142–175; BP diastolic 75–97; PULSE 76–102; RESP 16–22; TEMP 97.8–98.7; O2SAT 95–99
[2017-11-23] MEDS: RESP: ALBUTEROL 1.25 MG/3 ML NEB (PRN) NEB (02:16)
[2017-11-23] MEDS: INSULIN ASPART SUPPLEMENTAL SCALE SQ SCH ×4 (08:48→20:40)
[2017-11-23] MEDS: BUDESONIDE-FORMOTEROL 160/4.5 MCG INHALER INH SCH ×2 (08:48→20:49)
[2017-11-23] MEDS: LORazepam 0.5 MG TAB PO SCH ×2 (08:49→20:39)
[2017-11-23] MEDS: predniSONE 20 MG TAB PO SCH ×2 (08:49→20:38)
[2017-11-23] MEDS: APIXABAN 5 MG TABLET PO SCH ×2 (08:49→20:38)
[2017-11-23] MEDS: DILTIAZEM-CD 180 MG CAP ER PO SCH (08:49)
[2017-11-23] MEDS: FERROUS SULFATE 325 MG (65 MG ELEMENTAL IRON) TAB PO SCH ×2 (08:49→20:38)
[2017-11-23] MEDS: NYSTATIN SUSP 500,000 U/5 ML CUP SWISH-SWAL SCH ×4 (08:50→20:37)
[2017-11-23] MEDS: metFORMIN HCL 500 MG TAB PO SCH ×2 (08:50→18:29)
[2017-11-23] MEDS: POTASSIUM CHLORIDE 20 MEQ CONTROLLED RELEASE TAB PO SCH ×2 (08:50→20:38)
[2017-11-23] MEDS: DOCUSATE SODIUM 50 MG/SENNA 8.6 MG TAB PO SCH ×2 (08:50→20:37)
[2017-11-23] MEDS: SODIUM CHLORIDE 0.9% FLUSH 10 ML FLUSH IV FLUSH SCH ×2 (08:51→20:39)
[2017-11-23] MEDS: TAMSULOSIN HCL 0.4 MG CAP PO SCH (08:59)
[2017-11-23] MEDS: RESP: ALBUTEROL 2.5 MG/IPRATROPIUM 0.5 MG NEB (SCH) NEB ×5 (09:16→23:33)
[2017-11-23 12:16] LABS: AUTOMATED NEUTROPHIL # 15.8 TH/MM3 (1.8-7.7); HEMATOCRIT 43.5 % (39.0-51.0); HEMOGLOBIN 14.6 GM/DL (13.0-17.0); LYMPH % 2.8 % (9.0-44.0); LYMPHOCYTE # 0.5 TH/MM3 (1.0-4.8); MEAN CELL VOLUME 86.2 FL (80.0-100.0); MEAN CORPUSCULAR HEMOGLOBIN 28.9 PG (27.0-34.0); MEAN CORPUSCULAR HGB CONC 33.5 % (32.0-36.0); MEAN PLATELET VOLUME 7.3 FL (7.0-11.0); MONO % 5.1 % (0.0-8.0); MONOCYTE # 0.9 TH/MM3 (0-0.9); NEUT % 92.1 % (16.0-70.0); PLATELET COUNT 285 TH/MM3 (150-450); RED BLOOD COUNT 5.05 MIL/MM3 (4.50-5.90); RED CELL DISTRIBUTION WIDTH 15.3 % (11.6-17.2); WHITE BLOOD COUNT 17.2 TH/MM3 (4.0-11.0)
--- NOTE | 2017-11-23 12:29 | HHI.PR ---
Subjective History of Present Illness Patient still SOB / Wheezing cardiology/ Pulmonary input noted have leukocytosis will monitor. venous doppler of lower extremity negative for DVT. High BP start clonidine 0.1 mg PO every 6 hrs PRN if BP above 160/90 d/w RN at bed side. Review of Systems Constitutional Constitutional: Fatigue, Weakness Throat Throat Remarks Oral thrush Pulmonary Respiratory: Coughing, Shortness of Breath, Wheezing Cardiology CV Remarks leg edema. Musculoskeletal MS Remarks Leg edema. Vitals/Results Vital Signs Vital Signs Date Time Temp Pulse Resp B/P (MAP) Pulse Ox O2 Delivery O2 Flow Rate FiO2 11/23/17 11:47 97.8 87 20 153/92 (112) 95 11/23/17 11:00 90 11/23/17 10:00 94 11/23/17 09:16 97 21 11/23/17 09:00 88 11/23/17 08:00 84 11/23/17 07:41 97.9 82 22 142/94 (110) 97 11/23/17 07:00 76 11/23/17 07:00 Room Air 11/23/17 06:00 77 11/23/17 05:00 79 11/23/17 04:00 98.7 82 20 170/94 (119) 97 11/23/17 04:00 Room Air 11/23/17 04:00 82 11/23/17 03:00 79 11/23/17 02:00 86 11/23/17 01:00 90 11/23/17 00:00 Room Air 11/23/17 00:00 83 11/23/17 00:00 98.6 83 20 175/97 (123) 99 11/22/17 23:00 90 11/22/17 22:00 84 11/22/17 21:00 89 11/22/17 20:00 Room Air 11/22/17 20:00 95 11/22/17 20:00 98.3 95 18 152/91 (111) 96 11/22/17 19:47 98 21 11/22/17 18:00 96 11/22/17 17:00 80 11/22/17 16:00 86 11/22/17 15:00 98.4 84 20 141/82 (101) 97 11/22/17 15:00 97 11/22/17 14:00 82 11/22/17 13:00 84 11/22/17 12:47 98.4 96 20 146/86 (106) 97 11/22/17 12:47 Room Air CBC/BMP: 11/23/17 1115 11/22/17 0455 Lab Results Laboratory Tests Test 11/23/17 11:15 White Blood Count 17.2 TH/MM3 Red Blood Count 5.05 MIL/MM3 Hemoglobin 14.6 GM/DL Hematocrit 43.5 % Mean Corpuscular Volume 86.2 FL Mean Corpuscular Hemoglobin 28.9 PG Mean Corpuscular Hemoglobin Concent 33.5 % Red Cell Distribution Width 15.3 % Platelet Count 285 TH/MM3 Mean Platelet Volume 7.3 FL Neutrophils (%) (Auto) 92.1 % Lymphocytes (%) (Auto) 2.8 % Monocytes (%) (Auto) 5.1 % Eosinophils (%) (Auto) 0.0 % Basophils (%) (Auto) 0.0 % Neutrophils # (Auto) 15.8 TH/MM3 Lymphocytes # (Auto) 0.5 TH/MM3 Monocytes # (Auto) 0.9 TH/MM3 Eosinophils # (Auto) 0.0 TH/MM3 Basophils # (Auto) 0.0 TH/MM3 CBC Comment AUTO DIFF Physical Exam General General Appearance: Well Developed, Well Nourished, No Acute Distress Eyes Eye Exam: Pupils Equal, Pupils Reactive, Sclera White, Extraocular Movement Intact Throat Throat Exam: Oral Pharynx Normal Throat Remarks Oral Thrush Neck Neck Exam: Neck Supple, Trachea Midline Pulmonary Resp Exam: Crackles, Rhonchi, Decreased Bases, Diminished Breath Sounds Resp Remarks Bilateral wheezing. Gastrointestinal/Abdomen GI Exam: Soft, Non-Tender, Bowel Sounds Present Musculoskeletal MS Exam: Joints Intact Integumentary Skin Exam: Clear, Warm, Dry, Intact Extremeties Extremities Exam: Moderate Edema Neurologic Neuro Exam: Alert, Awake, Oriented, Speech Clear, Moving All Extremities, No Focal Deficits Psychiatric Psych Exam: Appropriate Responses VTE Prophylaxis VTE Remarks Kayquis. PUD Prophylasis PUD Prophylaxis: Protonix Assessment/Plan Assessment/Plan ASSESSMENT AND PLAN: 1. This is a 52-year-old male, came to the ER, diagnosed with acute respiratory distress/acute respiratory failure, is in acute chronic obstructive pulmonary disease exacerbation. Patient was on BiPAP. Pulmonary input noted. Patient also on DuoNeb nebulization every 4 hours, Solu-Medrol 60 mg IV every 8 hours and also on Zithromax 500 mg IV daily and cefepime 1 g IV b.i.d. Further recommendation per pulmonary. 2. Chronic obstructive pulmonary disease exacerbation. Patient is on Solu-Medrol IV, IV antibiotic and DuoNeb nebulization. 3. History of hyperlipidemia. Continue with Lipitor 20 mg p.o. daily. 4. History of gastroesophageal reflux disease. Protonix 40 mg p.o. daily. 5. History of leg edema. on Lasix 40 mg IV b.i.d. 6. History of chronic obstructive pulmonary disease. Continue home medication. 7. History of hypertension. Continue with diltiazem 360 mg p.o. daily. add clonidine 0.1 mg every 6 hrs PRN if BP above 160/90. 8. History of benign prostatic hypertrophy. Continue with Flomax 0.4 mg p.o. daily. 9. History of depression. Continue home medication. 10. Anxiety. Continue home medication. 11. Deep venous thrombosis and pulmonary embolism. Continue with Eliquis 5 mg twice a day. 12. History of Iron deficiency anemia. Continue with ferrous sulfate 325 mg p.o. b.i.d. 13. Diabetes mellitus. ADA 1800 diet CHECK Blood blood sugar. Continue with metformin 500 mg twice a day. On Insulin sliding scale. 14. Deep venous thrombosis prophylaxis. Patient is on Eliquis 5 mg twice a day. 15. Gastrointestinal prophylaxis. Protonix 40 mg p.o. daily. 16. Burning urination ...Urine analysis negative for UTI. 17. Leukocytosis on steroids will monitor. 18. Oral thrush on Nystatin. 19. Left upper extremity pain ...venous doppler shows basilic vein thrombosis no additional anticoagulation needed per hematology need to change IV site. We are going to manage the patient on daily basis and make recommendations on daily basis. Check CBC with diff CMP in AM. Discussed Condition with: Patient Myron Woodward MD Nov 23, 2017 12:29
[2017-11-23] MEDS ORDERED: cloNIDine HCL 0.1 MG TAB PO PRN (12:30)
[2017-11-23 12:35] LABS: ALBUMIN 3.4 GM/DL (3.4-5.0); AST (GOT) 24 U/L (15-37); BICARBONATE 22.9 MEQ/L (21.0-32.0); BLOOD UREA NITROGEN 31 MG/DL (7-18); CALCIUM 8.5 MG/DL (8.5-10.1); CHLORIDE 97 MEQ/L (98-107); CREATININE 1.05 MG/DL (0.60-1.30); GLOMERULAR FILTRATION RATE 74 ML/MIN (>89); GLUCOSE,RANDOM 202 MG/DL (74-106); SODIUM (NA) 133 MEQ/L (136-145)
[2017-11-23 12:36] LABS: ALT (GPT) 78 U/L (12-78)
[2017-11-23 12:39] LABS: ALKALINE PHOSPHATASE 117 U/L (45-117); TOTAL BILIRUBIN ADULT 0.4 MG/DL (0.2-1.0)
[2017-11-23] MEDS: FUROSEMIDE 40 MG/4 ML VIAL IV PUSH SCH ×2 (13:02→18:30)
[2017-11-23 13:42] LABS: ACANTHOCYTES OCC (NORMAL); LYMPHOCYTES 2 % (9-44); METAMYELOCYTES 1 % (0-1); MONOCYTES 2 % (0-8); MYELOCYTES 1 % (0-0); NEUTROPHIL # MANUAL DIFF 16.5 TH/MM3 (1.8-7.7); OVALOCYTES 1+ (NORMAL); POLYS (SEG NEUTROPHILS) 94 % (16-70)
--- NOTE | 2017-11-23 16:18 | PD.CARD.PN ---
Subjective Subjective Remarks Moderate MURRY, no CP, very slow progress Objective Medications Current Medications Medications (Trade) Dose Ordered Sig/Gabi Route Start Time Stop Time Status Last Admin (NS Flush) 2 ml UNSCH PRN IV FLUSH 11/17/17 09:30 11/20/17 12:59 (NS Flush) 2 ml BID IV FLUSH 11/17/17 09:30 11/23/17 08:51 (Tylenol) 650 mg Q4H PRN PO 11/17/17 09:30 (Zofran Inj) 4 mg Q6H PRN IVP 11/17/17 09:30 (Narcan Inj) 0.4 mg UNSCH PRN IV PUSH 11/17/17 09:30 (Clare-Colace) 1 tab BID PO 11/17/17 09:30 11/23/17 08:50 (Milk Of Magnesia Liq) 30 ml Q12H PRN PO 11/17/17 09:30 (Senokot) 17.2 mg Q12H PRN PO 11/17/17 09:30 (Dulcolax Supp) 10 mg DAILY PRN RECTAL 11/17/17 09:30 (Lactulose Liq) 30 ml DAILY PRN PO 11/17/17 09:30 (Eliquis) 5 mg BID PO 11/17/17 09:30 11/23/17 08:49 (Lipitor) 20 mg HS PO 11/17/17 21:00 11/22/17 20:47 (Symbicort 160-4.5 Mcg Inh) 2 puff Q12HR INH 11/17/17 11:00 11/23/17 08:48 (Cardizem Cd) 360 mg DAILY PO 11/17/17 11:00 11/23/17 08:49 (Ferrous Sulfate) 325 mg BID PO 11/17/17 09:30 11/23/17 08:49 (Ativan) 0.5 mg BID PO 11/17/17 09:30 11/23/17 08:49 (Glucophage) 500 mg BIDPC PO 11/17/17 09:30 11/23/17 08:50 (Singulair) 10 mg HS PO 11/17/17 21:00 11/22/17 20:46 (KCl) 20 meq BID PO 11/17/17 11:00 11/23/17 08:50 (Flomax) 0.4 mg DAILY PO 11/17/17 11:00 11/23/17 08:59 (Albuterol Neb) 1.25 mg BID NEB PRN NEB 11/17/17 10:30 11/23/17 02:16 (Protonix) 40 mg HS PO 11/17/17 21:00 11/22/17 20:47 (Lasix Inj) 40 mg BID@,18 IV PUSH 11/17/17 18:00 11/23/17 13:02 (D50w (Vial) Inj) 50 ml UNSCH PRN IV PUSH 11/17/17 11:30 (Glucagon Inj) 1 mg UNSCH PRN OTHER 11/17/17 11:30 (NovoLOG SUPPLEMENTAL SCALE) 1 ACHS SLIDING SCALE SQ 11/17/17 13:00 11/23/17 13:02 (Mycostatin Liq) 5 ml QID SWISH-SWAL 11/21/17 21:00 11/23/17 13:01 (Deltasone) 20 mg BID PO 11/22/17 21:00 11/23/17 08:49 (Catapres) 0.1 mg Q6H PRN PO 11/23/17 12:30 (Duoneb Neb) 1 ampule Q4HR NEB NEB 11/23/17 16:00 11/23/17 16:08 Vital Signs / I&O Vital Signs Date Time Temp Pulse Resp B/P (MAP) Pulse Ox O2 Delivery O2 Flow Rate FiO2 11/23/17 15:05 97.8 92 16 156/95 (115) 97 11/23/17 11:47 97.8 87 20 153/92 (112) 95 11/23/17 11:00 90 11/23/17 10:00 94 11/23/17 09:16 97 21 11/23/17 09:00 88 11/23/17 08:00 84 11/23/17 07:41 97.9 82 22 142/94 (110) 97 11/23/17 07:00 76 11/23/17 07:00 Room Air 11/23/17 06:00 77 11/23/17 05:00 79 11/23/17 04:00 98.7 82 20 170/94 (119) 97 11/23/17 04:00 Room Air 11/23/17 04:00 82 11/23/17 03:00 79 11/23/17 02:00 86 11/23/17 01:00 90 11/23/17 00:00 Room Air 11/23/17 00:00 83 11/23/17 00:00 98.6 83 20 175/97 (123) 99 11/22/17 23:00 90 11/22/17 22:00 84 11/22/17 21:00 89 11/22/17 20:00 Room Air 11/22/17 20:00 95 11/22/17 20:00 98.3 95 18 152/91 (111) 96 11/22/17 19:47 98 21 11/22/17 18:00 96 11/22/17 17:00 80 I/O 11/22/17 11/22/17 11/22/17 11/23/17 11/23/17 11/23/17 07:00 15:00 23:00 07:00 15:00 23:00 Intake Total 900 ml 2400 ml 1100 ml Output Total 1500 ml 3100 ml 1600 ml Balance -600 ml -700 ml -500 ml Intake Oral 900 ml 2400 ml 1000 ml IV Total 100 ml Output Urine Total 1500 ml 3100 ml 1600 ml # Bowel Movements 0 2 0 Physical Exam GENERAL: In NAD SKIN: Warm and dry. HEAD: Normocephalic. EYES: No scleral icterus. No injection or drainage. NECK: Supple, trachea midline. No JVD or lymphadenopathy. CARDIOVASCULAR: Regular rate and rhythm without murmurs, gallops, or rubs. RESPIRATORY: Breath sounds equal bilaterally. No accessory muscle use. Diffuse bilat wheezing GASTROINTESTINAL: Abdomen soft, non-tender, nondistended. MUSCULOSKELETAL: No cyanosis, or edema. Laboratory Laboratory Tests Test 11/23/17 11:15 White Blood Count 17.2 TH/MM3 Red Blood Count 5.05 MIL/MM3 Hemoglobin 14.6 GM/DL Hematocrit 43.5 % Mean Corpuscular Volume 86.2 FL Mean Corpuscular Hemoglobin 28.9 PG Mean Corpuscular Hemoglobin Concent 33.5 % Red Cell Distribution Width 15.3 % Platelet Count 285 TH/MM3 Mean Platelet Volume 7.3 FL Neutrophils (%) (Auto) 92.1 % Lymphocytes (%) (Auto) 2.8 % Monocytes (%) (Auto) 5.1 % Eosinophils (%) (Auto) 0.0 % Basophils (%) (Auto) 0.0 % Neutrophils # (Auto) 15.8 TH/MM3 Lymphocytes # (Auto) 0.5 TH/MM3 Monocytes # (Auto) 0.9 TH/MM3 Eosinophils # (Auto) 0.0 TH/MM3 Basophils # (Auto) 0.0 TH/MM3 CBC Comment AUTO DIFF Differential Total Cells Counted 100 Neutrophils % (Manual) 94 % Lymphocytes % 2 % Monocytes % 2 % Neutrophils # (Manual) 16.5 TH/MM3 Metamyelocytes 1 % Myelocytes 1 % Differential Comment FINAL DIFF MANUAL Platelet Estimate NORMAL Platelet Morphology Comment NORMAL Ovalocytes 1+ Acanthocytes OCC Blood Urea Nitrogen 31 MG/DL Creatinine 1.05 MG/DL Random Glucose 202 MG/DL Total Protein 6.0 GM/DL Albumin 3.4 GM/DL Calcium Level 8.5 MG/DL Alkaline Phosphatase 117 U/L Aspartate Amino Transf (AST/SGOT) 24 U/L Alanine Aminotransferase (ALT/SGPT) 78 U/L Total Bilirubin 0.4 MG/DL Sodium Level 133 MEQ/L Potassium Level 4.2 MEQ/L Chloride Level 97 MEQ/L Carbon Dioxide Level 22.9 MEQ/L Anion Gap 13 MEQ/L Estimat Glomerular Filtration Rate 74 ML/MIN Assessment and Plan Problem List: (1) Acute hypercapnic respiratory failure ICD Codes: J96.02 - Acute respiratory failure with hypercapnia Status: Acute (2) Acute asthma exacerbation ICD Codes: J45.901 - Unspecified asthma with (acute) exacerbation Status: Acute (3) History of pulmonary embolism ICD Codes: Z86.711 - Personal history of pulmonary embolism Status: Acute (4) Hypertension ICD Codes: I10 - Essential (primary) hypertension Status: Acute (5) Hyperlipidemia ICD Codes: E78.5 - Hyperlipidemia, unspecified Status: Chronic Assessment and Plan No new cardiac issues. Continue tx for COPD exacerbation, as planned by Dr. Hernandez. Very slow progress. Tele with mild ST, no significant arrhythmias. Continue anticoagulation with Eliquis, has h/o DVT/PE. Continue monitoring. Increase activity, PT. Problem Qualifiers (1) Acute asthma exacerbation: Qualified Codes: J45.901 - Unspecified asthma with (acute) exacerbation Adam Moody MD Nov 23, 2017 16:18
[2017-11-23] MEDS: ATORVASTATIN 20 MG TAB PO SCH (20:37)
[2017-11-23] MEDS: PANTOPRAZOLE SOD 40 MG DELAYED RELEASE TAB PO SCH (20:37)
[2017-11-23] MEDS: MONTELUKAST SODIUM 10 MG TAB PO SCH (20:38)
[2017-11-24] VITALS (26 sets, daily range): BP systolic 138–165; BP diastolic 83–90; PULSE 70–104; RESP 18–20; TEMP 97.7–98.1; O2SAT 95–98
[2017-11-24] MEDS: RESP: ALBUTEROL 2.5 MG/IPRATROPIUM 0.5 MG NEB (SCH) NEB ×6 (03:09→23:57)
[2017-11-24 07:19] LABS: AUTOMATED NEUTROPHIL # 11.6 TH/MM3 (1.8-7.7); BASOPHIL % 0.2 % (0.0-2.0); EOSINOPHIL % 0.2 % (0.0-4.0); HEMATOCRIT 40.8 % (39.0-51.0); LYMPH % 6.4 % (9.0-44.0); LYMPHOCYTE # 0.9 TH/MM3 (1.0-4.8); MEAN CELL VOLUME 85.4 FL (80.0-100.0); MEAN CORPUSCULAR HEMOGLOBIN 29.2 PG (27.0-34.0); MEAN CORPUSCULAR HGB CONC 34.2 % (32.0-36.0); MEAN PLATELET VOLUME 7.1 FL (7.0-11.0); MONO % 6.1 % (0.0-8.0); MONOCYTE # 0.8 TH/MM3 (0-0.9); NEUT % 87.1 % (16.0-70.0); PLATELET COUNT 233 TH/MM3 (150-450); RED BLOOD COUNT 4.78 MIL/MM3 (4.50-5.90); RED CELL DISTRIBUTION WIDTH 15.3 % (11.6-17.2); WHITE BLOOD COUNT 13.3 TH/MM3 (4.0-11.0)
[2017-11-24 07:38] LABS: ALT (GPT) 78 U/L (12-78); AST (GOT) 18 U/L (15-37); BICARBONATE 27.8 MEQ/L (21.0-32.0); BLOOD UREA NITROGEN 28 MG/DL (7-18); CALCIUM 8.2 MG/DL (8.5-10.1); CHLORIDE 99 MEQ/L (98-107); CREATININE 0.88 MG/DL (0.60-1.30); GLOMERULAR FILTRATION RATE 91 ML/MIN (>89); GLUCOSE,RANDOM 132 MG/DL (74-106); SODIUM (NA) 137 MEQ/L (136-145)
[2017-11-24 07:40] LABS: ALKALINE PHOSPHATASE 103 U/L (45-117); TOTAL BILIRUBIN ADULT 0.3 MG/DL (0.2-1.0); TOTAL PROTEIN 5.6 GM/DL (6.4-8.2)
[2017-11-24] MEDS: APIXABAN 5 MG TABLET PO SCH ×2 (08:20→22:20)
[2017-11-24] MEDS: LORazepam 0.5 MG TAB PO SCH ×2 (08:20→22:22)
[2017-11-24] MEDS: POTASSIUM CHLORIDE 20 MEQ CONTROLLED RELEASE TAB PO SCH ×2 (08:21→22:21)
[2017-11-24] MEDS: metFORMIN HCL 500 MG TAB PO SCH ×2 (08:21→18:09)
[2017-11-24] MEDS: predniSONE 20 MG TAB PO SCH ×2 (08:21→22:20)
[2017-11-24] MEDS: DOCUSATE SODIUM 50 MG/SENNA 8.6 MG TAB PO SCH ×2 (08:21→22:19)
[2017-11-24] MEDS: FERROUS SULFATE 325 MG (65 MG ELEMENTAL IRON) TAB PO SCH ×2 (08:21→22:21)
[2017-11-24] MEDS: DILTIAZEM-CD 180 MG CAP ER PO SCH (08:21)
[2017-11-24] MEDS: SODIUM CHLORIDE 0.9% FLUSH 10 ML FLUSH IV FLUSH SCH ×2 (08:22→22:17)
[2017-11-24] MEDS: FUROSEMIDE 40 MG/4 ML VIAL IV PUSH SCH ×2 (08:22→18:09)
[2017-11-24] MEDS: BUDESONIDE-FORMOTEROL 160/4.5 MCG INHALER INH SCH ×2 (08:22→22:17)
[2017-11-24 08:23] LABS: LYMPHOCYTES 6 % (9-44); METAMYELOCYTES 3 % (0-1); MONOCYTES 6 % (0-8); MYELOCYTES 3 % (0-0); NEUTROPHIL # MANUAL DIFF 11.7 TH/MM3 (1.8-7.7); OVALOCYTES 1+ (NORMAL); POLYS (SEG NEUTROPHILS) 82 % (16-70)
[2017-11-24] MEDS: INSULIN ASPART SUPPLEMENTAL SCALE SQ SCH ×4 (08:23→21:00)
[2017-11-24] MEDS: NYSTATIN SUSP 500,000 U/5 ML CUP SWISH-SWAL SCH ×4 (08:28→22:18)
[2017-11-24] MEDS: TAMSULOSIN HCL 0.4 MG CAP PO SCH (08:31)
--- NOTE | 2017-11-24 10:20 | HHI.PR ---
Subjective History of Present Illness Patient still SOB / Wheezing cardiology/ Pulmonary input noted have leukocytosis will monitor..... IV steroids changed to oral. Review of Systems Constitutional Constitutional: Fatigue, Weakness Throat Throat Remarks Oral thrush Pulmonary Respiratory: Coughing, Shortness of Breath, Wheezing Cardiology CV Remarks leg edema. Musculoskeletal MS Remarks Leg edema. Vitals/Results Vital Signs Vital Signs Date Time Temp Pulse Resp B/P (MAP) Pulse Ox O2 Delivery O2 Flow Rate FiO2 11/24/17 08:40 98 21 11/24/17 06:00 83 11/24/17 05:00 81 11/24/17 04:00 82 20 154/84 (107) 96 11/24/17 04:00 82 11/24/17 03:00 80 11/24/17 02:00 83 11/24/17 01:00 81 11/24/17 00:00 Room Air 11/24/17 00:00 98.1 70 20 150/83 (105) 97 11/24/17 00:00 70 11/23/17 23:00 83 11/23/17 22:00 77 11/23/17 21:00 81 11/23/17 20:00 Room Air 11/23/17 20:00 98.2 80 20 154/75 (101) 96 11/23/17 20:00 80 11/23/17 19:30 96 11/23/17 18:05 81 11/23/17 17:00 90 11/23/17 16:00 84 11/23/17 15:05 97.8 92 16 156/95 (115) 97 11/23/17 15:00 79 11/23/17 15:00 102 11/23/17 14:00 100 11/23/17 13:00 90 11/23/17 12:00 84 11/23/17 11:47 97.8 87 20 153/92 (112) 95 11/23/17 11:00 90 CBC/BMP: 11/24/17 0655 11/24/17 0655 Lab Results Laboratory Tests Test 11/23/17 11:15 11/24/17 06:55 White Blood Count 17.2 TH/MM3 13.3 TH/MM3 Red Blood Count 5.05 MIL/MM3 4.78 MIL/MM3 Hemoglobin 14.6 GM/DL 14.0 GM/DL Hematocrit 43.5 % 40.8 % Mean Corpuscular Volume 86.2 FL 85.4 FL Mean Corpuscular Hemoglobin 28.9 PG 29.2 PG Mean Corpuscular Hemoglobin Concent 33.5 % 34.2 % Red Cell Distribution Width 15.3 % 15.3 % Platelet Count 285 TH/MM3 233 TH/MM3 Mean Platelet Volume 7.3 FL 7.1 FL Neutrophils (%) (Auto) 92.1 % 87.1 % Lymphocytes (%) (Auto) 2.8 % 6.4 % Monocytes (%) (Auto) 5.1 % 6.1 % Eosinophils (%) (Auto) 0.0 % 0.2 % Basophils (%) (Auto) 0.0 % 0.2 % Neutrophils # (Auto) 15.8 TH/MM3 11.6 TH/MM3 Lymphocytes # (Auto) 0.5 TH/MM3 0.9 TH/MM3 Monocytes # (Auto) 0.9 TH/MM3 0.8 TH/MM3 Eosinophils # (Auto) 0.0 TH/MM3 0.0 TH/MM3 Basophils # (Auto) 0.0 TH/MM3 0.0 TH/MM3 CBC Comment AUTO DIFF AUTO DIFF Differential Total Cells Counted 100 100 Neutrophils % (Manual) 94 % 82 % Lymphocytes % 2 % 6 % Monocytes % 2 % 6 % Neutrophils # (Manual) 16.5 TH/MM3 11.7 TH/MM3 Metamyelocytes 1 % 3 % Myelocytes 1 % 3 % Differential Comment FINAL DIFF MANUAL FINAL DIFF MANUAL Platelet Estimate NORMAL NORMAL Platelet Morphology Comment NORMAL NORMAL Ovalocytes 1+ 1+ Acanthocytes OCC Blood Urea Nitrogen 31 MG/DL 28 MG/DL Creatinine 1.05 MG/DL 0.88 MG/DL Random Glucose 202 MG/DL 132 MG/DL Total Protein 6.0 GM/DL 5.6 GM/DL Albumin 3.4 GM/DL 3.0 GM/DL Calcium Level 8.5 MG/DL 8.2 MG/DL Alkaline Phosphatase 117 U/L 103 U/L Aspartate Amino Transf (AST/SGOT) 24 U/L 18 U/L Alanine Aminotransferase (ALT/SGPT) 78 U/L 78 U/L Total Bilirubin 0.4 MG/DL 0.3 MG/DL Sodium Level 133 MEQ/L 137 MEQ/L Potassium Level 4.2 MEQ/L 3.9 MEQ/L Chloride Level 97 MEQ/L 99 MEQ/L Carbon Dioxide Level 22.9 MEQ/L 27.8 MEQ/L Anion Gap 13 MEQ/L 10 MEQ/L Estimat Glomerular Filtration Rate 74 ML/MIN 91 ML/MIN Physical Exam General General Appearance: Well Developed, Well Nourished, No Acute Distress Eyes Eye Exam: Pupils Equal, Pupils Reactive, Sclera White, Extraocular Movement Intact Throat Throat Exam: Oral Pharynx Normal Throat Remarks Oral Thrush Neck Neck Exam: Neck Supple, Trachea Midline Pulmonary Resp Exam: Crackles, Rhonchi, Decreased Bases, Diminished Breath Sounds Resp Remarks Bilateral wheezing. Gastrointestinal/Abdomen GI Exam: Soft, Non-Tender, Bowel Sounds Present Musculoskeletal MS Exam: Joints Intact Integumentary Skin Exam: Clear, Warm, Dry, Intact Extremeties Extremities Exam: Moderate Edema Neurologic Neuro Exam: Alert, Awake, Oriented, Speech Clear, Moving All Extremities, No Focal Deficits Psychiatric Psych Exam: Appropriate Responses VTE Prophylaxis VTE Remarks Eliquis. PUD Prophylasis PUD Prophylaxis: Protonix Assessment/Plan Assessment/Plan ASSESSMENT AND PLAN: 1. This is a 52-year-old male, came to the ER, diagnosed with acute respiratory distress/acute respiratory failure, is in acute chronic obstructive pulmonary disease exacerbation. Patient was on BiPAP. Pulmonary input noted. Patient also on DuoNeb nebulization every 4 hours, Prednisone 20 mg PO BID. and also off Antibiotic. Further recommendation per pulmonary. 2. Chronic obstructive pulmonary disease exacerbation. Patient is on prednisone 20 mg po bid. and DuoNeb nebulization. 3. History of hyperlipidemia. Continue with Lipitor 20 mg p.o. daily. 4. History of gastroesophageal reflux disease. Protonix 40 mg p.o. daily. 5. History of leg edema. on Lasix 40 mg IV b.i.d. 6. History of chronic obstructive pulmonary disease. Continue home medication. 7. History of hypertension. Continue with diltiazem 360 mg p.o. daily. add clonidine 0.1 mg every 6 hrs PRN if BP above 160/90. 8. History of benign prostatic hypertrophy. Continue with Flomax 0.4 mg p.o. daily. 9. History of depression. Continue home medication. 10. Anxiety. Continue home medication. 11. Deep venous thrombosis and pulmonary embolism. Continue with Eliquis 5 mg twice a day. 12. History of Iron deficiency anemia. Continue with ferrous sulfate 325 mg p.o. b.i.d. 13. Diabetes mellitus. ADA 1800 diet CHECK Blood blood sugar. Continue with metformin 500 mg twice a day. On Insulin sliding scale. 14. Deep venous thrombosis prophylaxis. Patient is on Eliquis 5 mg twice a day. 15. Gastrointestinal prophylaxis. Protonix 40 mg p.o. daily. 16. Burning urination ...Urine analysis negative for UTI. 17. Leukocytosis on steroids will monitor. 18. Oral thrush on Nystatin. 19. Left upper extremity pain ...venous dopler shows basilic vein thrombosis no additional anticoagulation needed per hematology, IV site Changed. We are going to manage the patient on daily basis and make recommendations on daily basis. Check CBC with diff CMP in AM. Discussed Condition with: Patient, Spouse Myron Woodward MD Nov 24, 2017 10:20
--- NOTE | 2017-11-24 16:18 | HHI.PR ---
Subjective Remarks ALERT LESS SOB OCC WHEEZE Objective Vital Signs Date Time Temp Pulse Resp B/P (MAP) Pulse Ox O2 Delivery O2 Flow Rate FiO2 11/24/17 14:41 88 11/24/17 13:11 102 11/24/17 12:36 98 11/24/17 11:26 97.8 87 18 148/83 (104) 96 11/24/17 11:26 84 11/24/17 10:30 93 11/24/17 09:36 84 11/24/17 08:40 98 21 11/24/17 08:21 89 11/24/17 07:29 90 11/24/17 07:29 97 Room Air 11/24/17 07:29 97.9 90 18 165/90 (115) 97 11/24/17 06:00 83 11/24/17 05:00 81 11/24/17 04:00 82 20 154/84 (107) 96 11/24/17 04:00 82 11/24/17 03:00 80 11/24/17 02:00 83 11/24/17 01:00 81 11/24/17 00:00 Room Air 11/24/17 00:00 98.1 70 20 150/83 (105) 97 11/24/17 00:00 70 11/23/17 23:00 83 11/23/17 22:00 77 11/23/17 21:00 81 11/23/17 20:00 Room Air 11/23/17 20:00 98.2 80 20 154/75 (101) 96 11/23/17 20:00 80 11/23/17 19:30 96 11/23/17 18:05 81 11/23/17 17:00 90 I/O 11/23/17 11/23/17 11/23/17 11/24/17 11/24/17 11/24/17 07:00 15:00 23:00 07:00 15:00 23:00 Intake Total 1100 ml 1920 ml 240 ml Output Total 1600 ml 2800 ml 1200 ml Balance -500 ml -880 ml -960 ml Intake Oral 1000 ml 1920 ml 240 ml IV Total 100 ml Output Urine Total 1600 ml 2800 ml 1200 ml # Bowel Movements 0 2 0 Result Diagram: 11/24/1765411/24/17654 Objective Remarks GENERAL: SKIN: Warm and dry. HEAD: Atraumatic. Normocephalic. EYES: Pupils equal and round. No scleral icterus. No injection or drainage. ENT: No nasal bleeding or discharge. Mucous membranes pink and moist. NECK: Trachea midline. No JVD. CARDIOVASCULAR: Regular rate and rhythm. RESPIRATORY: No accessory muscle use. Clear to auscultation. Breath sounds equal bilaterally. GASTROINTESTINAL: Abdomen soft, non-tender, nondistended. Hepatic and splenic margins not palpable. MUSCULOSKELETAL: Extremities without clubbing, cyanosis, or edema. No obvious deformities. NEUROLOGICAL: Awake and alert. No obvious cranial nerve deficits. Motor grossly within normal limits. Five out of 5 muscle strength in the arms and legs. Normal speech. PSYCHIATRIC: Appropriate mood and affect; insight and judgment normal. Assessment and Plan Assessment and Plan COPD EXACERBATION improving LUE DVT THOMSON O2 NEEDED BRONCHODILATORS CHANGE TO ORAL STEROIDS ANTIBX increase activity Mary Hernandez MD Nov 24, 2017 16:18
--- NOTE | 2017-11-24 18:44 | PD.CARD.PN ---
Subjective Subjective Remarks Moderate MURRY, mild at rest, no CP Objective Medications Current Medications Medications (Trade) Dose Ordered Sig/Gabi Route Start Time Stop Time Status Last Admin (NS Flush) 2 ml UNSCH PRN IV FLUSH 11/17/17 09:30 11/20/17 12:59 (NS Flush) 2 ml BID IV FLUSH 11/17/17 09:30 11/24/17 08:22 (Tylenol) 650 mg Q4H PRN PO 11/17/17 09:30 (Zofran Inj) 4 mg Q6H PRN IVP 11/17/17 09:30 (Narcan Inj) 0.4 mg UNSCH PRN IV PUSH 11/17/17 09:30 (Clare-Colace) 1 tab BID PO 11/17/17 09:30 11/24/17 08:21 (Milk Of Magnesia Liq) 30 ml Q12H PRN PO 11/17/17 09:30 (Senokot) 17.2 mg Q12H PRN PO 11/17/17 09:30 (Dulcolax Supp) 10 mg DAILY PRN RECTAL 11/17/17 09:30 (Lactulose Liq) 30 ml DAILY PRN PO 11/17/17 09:30 (Eliquis) 5 mg BID PO 11/17/17 09:30 11/24/17 08:20 (Lipitor) 20 mg HS PO 11/17/17 21:00 11/23/17 20:37 (Symbicort 160-4.5 Mcg Inh) 2 puff Q12HR INH 11/17/17 11:00 11/24/17 08:22 (Cardizem Cd) 360 mg DAILY PO 11/17/17 11:00 11/24/17 08:21 (Ferrous Sulfate) 325 mg BID PO 11/17/17 09:30 11/24/17 08:21 (Ativan) 0.5 mg BID PO 11/17/17 09:30 11/24/17 08:20 (Glucophage) 500 mg BIDPC PO 11/17/17 09:30 11/24/17 18:09 (Singulair) 10 mg HS PO 11/17/17 21:00 11/23/17 20:38 (KCl) 20 meq BID PO 11/17/17 11:00 11/24/17 08:21 (Flomax) 0.4 mg DAILY PO 11/17/17 11:00 11/24/17 08:31 (Albuterol Neb) 1.25 mg BID NEB PRN NEB 11/17/17 10:30 11/23/17 02:16 (Protonix) 40 mg HS PO 11/17/17 21:00 11/23/17 20:37 (Lasix Inj) 40 mg BID@,18 IV PUSH 11/17/17 18:00 11/24/17 18:09 (D50w (Vial) Inj) 50 ml UNSCH PRN IV PUSH 11/17/17 11:30 (Glucagon Inj) 1 mg UNSCH PRN OTHER 11/17/17 11:30 (NovoLOG SUPPLEMENTAL SCALE) 1 ACHS SLIDING SCALE SQ 11/17/17 13:00 11/24/17 18:09 (Mycostatin Liq) 5 ml QID SWISH-SWAL 11/21/17 21:00 11/24/17 18:09 (Deltasone) 20 mg BID PO 11/22/17 21:00 11/24/17 08:21 (Catapres) 0.1 mg Q6H PRN PO 11/23/17 12:30 (Duoneb Neb) 1 ampule Q4HR NEB NEB 11/23/17 16:00 11/24/17 16:03 Vital Signs / I&O Vital Signs Date Time Temp Pulse Resp B/P (MAP) Pulse Ox O2 Delivery O2 Flow Rate FiO2 11/24/17 18:16 96 11/24/17 17:47 99 11/24/17 16:35 101 11/24/17 16:34 97.9 99 18 140/85 (103) 97 11/24/17 14:41 88 11/24/17 13:11 102 11/24/17 12:36 98 11/24/17 11:26 97.8 87 18 148/83 (104) 96 11/24/17 11:26 84 11/24/17 10:30 93 11/24/17 09:36 84 11/24/17 08:40 98 21 11/24/17 08:21 89 11/24/17 07:29 90 11/24/17 07:29 97 Room Air 11/24/17 07:29 97.9 90 18 165/90 (115) 97 11/24/17 06:00 83 11/24/17 05:00 81 11/24/17 04:00 82 20 154/84 (107) 96 11/24/17 04:00 82 11/24/17 03:00 80 11/24/17 02:00 83 11/24/17 01:00 81 11/24/17 00:00 Room Air 11/24/17 00:00 98.1 70 20 150/83 (105) 97 11/24/17 00:00 70 11/23/17 23:00 83 11/23/17 22:00 77 11/23/17 21:00 81 11/23/17 20:00 Room Air 11/23/17 20:00 98.2 80 20 154/75 (101) 96 11/23/17 20:00 80 11/23/17 19:30 96 I/O 11/23/17 11/23/17 11/23/17 11/24/17 11/24/17 11/24/17 07:00 15:00 23:00 07:00 15:00 23:00 Intake Total 1100 ml 1920 ml 240 ml 840 ml Output Total 1600 ml 2800 ml 1200 ml 3350 ml Balance -500 ml -880 ml -960 ml -2510 ml Intake Oral 1000 ml 1920 ml 240 ml 840 ml IV Total 100 ml Output Urine Total 1600 ml 2800 ml 1200 ml 3350 ml # Bowel Movements 0 2 0 2 Physical Exam GENERAL: In NAD SKIN: Warm and dry. HEAD: Normocephalic. EYES: No scleral icterus. No injection or drainage. NECK: Supple, trachea midline. No JVD or lymphadenopathy. CARDIOVASCULAR: Regular rate and rhythm without murmurs, gallops, or rubs. RESPIRATORY: Breath sounds equal bilaterally. No accessory muscle use. Diffuse bilat wheezing GASTROINTESTINAL: Abdomen soft, non-tender, nondistended. MUSCULOSKELETAL: No cyanosis, or edema. Laboratory Laboratory Tests Test 11/24/17 06:55 White Blood Count 13.3 TH/MM3 Red Blood Count 4.78 MIL/MM3 Hemoglobin 14.0 GM/DL Hematocrit 40.8 % Mean Corpuscular Volume 85.4 FL Mean Corpuscular Hemoglobin 29.2 PG Mean Corpuscular Hemoglobin Concent 34.2 % Red Cell Distribution Width 15.3 % Platelet Count 233 TH/MM3 Mean Platelet Volume 7.1 FL Neutrophils (%) (Auto) 87.1 % Lymphocytes (%) (Auto) 6.4 % Monocytes (%) (Auto) 6.1 % Eosinophils (%) (Auto) 0.2 % Basophils (%) (Auto) 0.2 % Neutrophils # (Auto) 11.6 TH/MM3 Lymphocytes # (Auto) 0.9 TH/MM3 Monocytes # (Auto) 0.8 TH/MM3 Eosinophils # (Auto) 0.0 TH/MM3 Basophils # (Auto) 0.0 TH/MM3 CBC Comment AUTO DIFF Differential Total Cells Counted 100 Neutrophils % (Manual) 82 % Lymphocytes % 6 % Monocytes % 6 % Neutrophils # (Manual) 11.7 TH/MM3 Metamyelocytes 3 % Myelocytes 3 % Differential Comment FINAL DIFF MANUAL Platelet Estimate NORMAL Platelet Morphology Comment NORMAL Ovalocytes 1+ Blood Urea Nitrogen 28 MG/DL Creatinine 0.88 MG/DL Random Glucose 132 MG/DL Total Protein 5.6 GM/DL Albumin 3.0 GM/DL Calcium Level 8.2 MG/DL Alkaline Phosphatase 103 U/L Aspartate Amino Transf (AST/SGOT) 18 U/L Alanine Aminotransferase (ALT/SGPT) 78 U/L Total Bilirubin 0.3 MG/DL Sodium Level 137 MEQ/L Potassium Level 3.9 MEQ/L Chloride Level 99 MEQ/L Carbon Dioxide Level 27.8 MEQ/L Anion Gap 10 MEQ/L Estimat Glomerular Filtration Rate 91 ML/MIN Assessment and Plan Problem List: (1) Acute hypercapnic respiratory failure ICD Codes: J96.02 - Acute respiratory failure with hypercapnia Status: Acute (2) Acute asthma exacerbation ICD Codes: J45.901 - Unspecified asthma with (acute) exacerbation Status: Acute (3) History of pulmonary embolism ICD Codes: Z86.711 - Personal history of pulmonary embolism Status: Acute (4) Hypertension ICD Codes: I10 - Essential (primary) hypertension Status: Acute (5) Hyperlipidemia ICD Codes: E78.5 - Hyperlipidemia, unspecified Status: Chronic Assessment and Plan Remains stable from cardiac standpoint, but still significantly SOB. Continue tx for COPD exacerbation, as planned by Dr. Hernandez. Slow progress. Tele with no significant arrhythmias. Continue anticoagulation with Eliquis (h/o DVT/PE). Continue monitoring. Increase activity, PT. D/w pt and . Problem Qualifiers (1) Acute asthma exacerbation: Qualified Codes: J45.901 - Unspecified asthma with (acute) exacerbation Adam Moody MD Nov 24, 2017 18:44
[2017-11-24] MEDS: PANTOPRAZOLE SOD 40 MG DELAYED RELEASE TAB PO SCH (22:18)
[2017-11-24] MEDS: ATORVASTATIN 20 MG TAB PO SCH (22:20)
[2017-11-24] MEDS: MONTELUKAST SODIUM 10 MG TAB PO SCH (22:22)
[2017-11-25] VITALS (26 sets, daily range): BP systolic 142–155; BP diastolic 76–95; PULSE 71–109; RESP 18–20; TEMP 97.2–98.6; O2SAT 94–97
[2017-11-25] MEDS: RESP: ALBUTEROL 2.5 MG/IPRATROPIUM 0.5 MG NEB (SCH) NEB ×5 (03:07→19:34)
[2017-11-25 06:17] LABS: AUTOMATED NEUTROPHIL # 12.2 TH/MM3 (1.8-7.7); BASOPHIL % 0.1 % (0.0-2.0); EOSINOPHIL % 0.3 % (0.0-4.0); HEMATOCRIT 42.9 % (39.0-51.0); HEMOGLOBIN 14.4 GM/DL (13.0-17.0); LYMPH % 4.8 % (9.0-44.0); LYMPHOCYTE # 0.7 TH/MM3 (1.0-4.8); MEAN CELL VOLUME 86.3 FL (80.0-100.0); MEAN CORPUSCULAR HEMOGLOBIN 28.9 PG (27.0-34.0); MEAN CORPUSCULAR HGB CONC 33.5 % (32.0-36.0); MEAN PLATELET VOLUME 7.4 FL (7.0-11.0); MONO % 7.2 % (0.0-8.0); NEUT % 87.6 % (16.0-70.0); PLATELET COUNT 236 TH/MM3 (150-450); RED BLOOD COUNT 4.97 MIL/MM3 (4.50-5.90); RED CELL DISTRIBUTION WIDTH 15.5 % (11.6-17.2); WHITE BLOOD COUNT 13.9 TH/MM3 (4.0-11.0)
[2017-11-25 06:41] LABS: ALBUMIN 3.2 GM/DL (3.4-5.0); AST (GOT) 21 U/L (15-37); BICARBONATE 27.2 MEQ/L (21.0-32.0); BLOOD UREA NITROGEN 24 MG/DL (7-18); CALCIUM 8.7 MG/DL (8.5-10.1); CHLORIDE 98 MEQ/L (98-107); CREATININE 0.98 MG/DL (0.60-1.30); GLOMERULAR FILTRATION RATE 80 ML/MIN (>89); GLUCOSE,RANDOM 158 MG/DL (74-106); SODIUM (NA) 135 MEQ/L (136-145)
[2017-11-25 06:43] LABS: ALT (GPT) 78 U/L (12-78)
[2017-11-25 06:45] LABS: ALKALINE PHOSPHATASE 109 U/L (45-117); TOTAL BILIRUBIN ADULT 0.4 MG/DL (0.2-1.0); TOTAL PROTEIN 5.9 GM/DL (6.4-8.2)
[2017-11-25 07:57] LABS: BANDS 7 % (0-6); LYMPHOCYTES 9 % (9-44); METAMYELOCYTES 2 % (0-1); MONOCYTES 4 % (0-8); MYELOCYTES 4 % (0-0); NEUTROPHIL # MANUAL DIFF 12.1 TH/MM3 (1.8-7.7); POLYS (SEG NEUTROPHILS) 74 % (16-70)
[2017-11-25 07:58] LABS: OVALOCYTES 1+ (NORMAL)
[2017-11-25] MEDS: INSULIN ASPART SUPPLEMENTAL SCALE SQ SCH ×4 (08:00→21:44)
[2017-11-25] MEDS: LORazepam 0.5 MG TAB PO SCH ×2 (08:56→21:43)
[2017-11-25] MEDS: metFORMIN HCL 500 MG TAB PO SCH ×2 (08:56→16:43)
[2017-11-25] MEDS: FERROUS SULFATE 325 MG (65 MG ELEMENTAL IRON) TAB PO SCH ×2 (08:56→21:43)
[2017-11-25] MEDS: DILTIAZEM-CD 180 MG CAP ER PO SCH (08:56)
[2017-11-25] MEDS: APIXABAN 5 MG TABLET PO SCH ×2 (08:56→21:43)
[2017-11-25] MEDS: NYSTATIN SUSP 500,000 U/5 ML CUP SWISH-SWAL SCH ×4 (08:56→21:40)
[2017-11-25] MEDS: predniSONE 20 MG TAB PO SCH ×2 (08:56→21:43)
[2017-11-25] MEDS: POTASSIUM CHLORIDE 20 MEQ CONTROLLED RELEASE TAB PO SCH ×2 (08:56→21:42)
[2017-11-25] MEDS: TAMSULOSIN HCL 0.4 MG CAP PO SCH (08:56)
[2017-11-25] MEDS: FUROSEMIDE 40 MG/4 ML VIAL IV PUSH SCH ×2 (08:57→16:44)
[2017-11-25] MEDS: SODIUM CHLORIDE 0.9% FLUSH 10 ML FLUSH IV FLUSH SCH ×2 (08:57→21:44)
[2017-11-25] MEDS: DOCUSATE SODIUM 50 MG/SENNA 8.6 MG TAB PO SCH ×2 (08:57→21:43)
[2017-11-25] MEDS: BUDESONIDE-FORMOTEROL 160/4.5 MCG INHALER INH SCH ×2 (08:57→21:45)
--- NOTE | 2017-11-25 15:06 | PD.CARD.PN ---
Subjective Subjective Remarks SOB slowly improving, no CP Objective Medications Current Medications Medications (Trade) Dose Ordered Sig/Gabi Route Start Time Stop Time Status Last Admin (NS Flush) 2 ml UNSCH PRN IV FLUSH 11/17/17 09:30 11/20/17 12:59 (NS Flush) 2 ml BID IV FLUSH 11/17/17 09:30 11/25/17 08:57 (Tylenol) 650 mg Q4H PRN PO 11/17/17 09:30 (Zofran Inj) 4 mg Q6H PRN IVP 11/17/17 09:30 (Narcan Inj) 0.4 mg UNSCH PRN IV PUSH 11/17/17 09:30 (Clare-Colace) 1 tab BID PO 11/17/17 09:30 11/25/17 08:57 (Milk Of Magnesia Liq) 30 ml Q12H PRN PO 11/17/17 09:30 (Senokot) 17.2 mg Q12H PRN PO 11/17/17 09:30 (Dulcolax Supp) 10 mg DAILY PRN RECTAL 11/17/17 09:30 (Lactulose Liq) 30 ml DAILY PRN PO 11/17/17 09:30 (Eliquis) 5 mg BID PO 11/17/17 09:30 11/25/17 08:56 (Lipitor) 20 mg HS PO 11/17/17 21:00 11/24/17 22:20 (Symbicort 160-4.5 Mcg Inh) 2 puff Q12HR INH 11/17/17 11:00 11/25/17 08:57 (Cardizem Cd) 360 mg DAILY PO 11/17/17 11:00 11/25/17 08:56 (Ferrous Sulfate) 325 mg BID PO 11/17/17 09:30 11/25/17 08:56 (Ativan) 0.5 mg BID PO 11/17/17 09:30 11/25/17 08:56 (Glucophage) 500 mg BIDPC PO 11/17/17 09:30 11/25/17 08:56 (Singulair) 10 mg HS PO 11/17/17 21:00 18 22:22 (KCl) 20 meq BID PO 11/17/17 11:00 11/25/17 08:56 (Flomax) 0.4 mg DAILY PO 11/17/17 11:00 11/25/17 08:56 (Albuterol Neb) 1.25 mg BID NEB PRN NEB 11/17/17 10:30 11/23/17 02:16 (Protonix) 40 mg HS PO 11/17/17 21:00 11/24/17 22:18 (Lasix Inj) 40 mg BID@,18 IV PUSH 11/17/17 18:00 11/25/17 08:57 (D50w (Vial) Inj) 50 ml UNSCH PRN IV PUSH 11/17/17 11:30 (Glucagon Inj) 1 mg UNSCH PRN OTHER 11/17/17 11:30 (NovoLOG SUPPLEMENTAL SCALE) 1 ACHS SLIDING SCALE SQ 11/17/17 13:00 11/25/17 11:03 (Mycostatin Liq) 5 ml QID SWISH-SWAL 11/21/17 21:00 11/25/17 13:00 (Deltasone) 20 mg BID PO 11/22/17 21:00 11/25/17 08:56 (Catapres) 0.1 mg Q6H PRN PO 11/23/17 12:30 (Duoneb Neb) 1 ampule Q4HR NEB NEB 11/23/17 16:00 11/25/17 11:38 Vital Signs / I&O Vital Signs Date Time Temp Pulse Resp B/P (MAP) Pulse Ox O2 Delivery O2 Flow Rate FiO2 11/25/17 14:00 91 11/25/17 13:00 88 11/25/17 12:00 103 11/25/17 11:00 109 11/25/17 11:00 97.2 109 20 143/94 (110) 97 11/25/17 10:00 103 11/25/17 09:00 83 11/25/17 08:35 96 21 11/25/17 08:00 98.6 91 20 155/84 (107) 96 11/25/17 08:00 99 11/25/17 08:00 Room Air 11/25/17 07:00 91 11/25/17 06:00 83 11/25/17 05:00 78 11/25/17 04:00 84 11/25/17 04:00 97.9 93 18 148/95 (112) 96 11/25/17 03:09 96 11/25/17 03:00 80 11/25/17 02:00 80 11/25/17 01:00 84 11/25/17 00:00 87 11/25/17 00:00 97.7 89 18 142/87 (105) 96 11/24/17 23:59 97 11/24/17 23:00 92 11/24/17 22:00 104 11/24/17 21:00 94 11/24/17 20:00 97.7 94 20 138/85 (102) 95 11/24/17 20:00 Room Air 11/24/17 20:00 97 11/24/17 19:52 96 21 11/24/17 18:16 96 11/24/17 17:47 99 11/24/17 16:35 101 11/24/17 16:34 97.9 99 18 140/85 (103) 97 I/O 11/24/17 11/24/17 11/24/17 11/25/17 11/25/17 11/25/17 07:00 15:00 23:00 07:00 15:00 23:00 Intake Total 240 ml 840 ml Output Total 1200 ml 3350 ml 3900 ml Balance -960 ml -2510 ml -3900 ml Intake Oral 240 ml 840 ml Output Urine Total 1200 ml 3350 ml 3900 ml # Bowel Movements 0 2 Physical Exam GENERAL: In NAD SKIN: Warm and dry. HEAD: Normocephalic. EYES: No scleral icterus. No injection or drainage. NECK: Supple, trachea midline. No JVD or lymphadenopathy. CARDIOVASCULAR: Regular rate and rhythm without murmurs, gallops, or rubs. RESPIRATORY: Breath sounds equal bilaterally. No accessory muscle use. Diffuse bilat wheezing GASTROINTESTINAL: Abdomen soft, non-tender, nondistended. MUSCULOSKELETAL: No cyanosis, or edema. Laboratory Laboratory Tests Test 11/25/17 05:04 White Blood Count 13.9 TH/MM3 Red Blood Count 4.97 MIL/MM3 Hemoglobin 14.4 GM/DL Hematocrit 42.9 % Mean Corpuscular Volume 86.3 FL Mean Corpuscular Hemoglobin 28.9 PG Mean Corpuscular Hemoglobin Concent 33.5 % Red Cell Distribution Width 15.5 % Platelet Count 236 TH/MM3 Mean Platelet Volume 7.4 FL Neutrophils (%) (Auto) 87.6 % Lymphocytes (%) (Auto) 4.8 % Monocytes (%) (Auto) 7.2 % Eosinophils (%) (Auto) 0.3 % Basophils (%) (Auto) 0.1 % Neutrophils # (Auto) 12.2 TH/MM3 Lymphocytes # (Auto) 0.7 TH/MM3 Monocytes # (Auto) 1.0 TH/MM3 Eosinophils # (Auto) 0.0 TH/MM3 Basophils # (Auto) 0.0 TH/MM3 CBC Comment AUTO DIFF Differential Total Cells Counted 100 Neutrophils % (Manual) 74 % Band Neutrophils % 7 % Lymphocytes % 9 % Monocytes % 4 % Neutrophils # (Manual) 12.1 TH/MM3 Metamyelocytes 2 % Myelocytes 4 % Differential Comment FINAL DIFF MANUAL Platelet Estimate NORMAL Platelet Morphology Comment NORMAL Ovalocytes 1+ Blood Urea Nitrogen 24 MG/DL Creatinine 0.98 MG/DL Random Glucose 158 MG/DL Total Protein 5.9 GM/DL Albumin 3.2 GM/DL Calcium Level 8.7 MG/DL Alkaline Phosphatase 109 U/L Aspartate Amino Transf (AST/SGOT) 21 U/L Alanine Aminotransferase (ALT/SGPT) 78 U/L Total Bilirubin 0.4 MG/DL Sodium Level 135 MEQ/L Potassium Level 4.4 MEQ/L Chloride Level 98 MEQ/L Carbon Dioxide Level 27.2 MEQ/L Anion Gap 10 MEQ/L Estimat Glomerular Filtration Rate 80 ML/MIN Assessment and Plan Problem List: (1) Acute hypercapnic respiratory failure ICD Codes: J96.02 - Acute respiratory failure with hypercapnia Status: Acute (2) Acute asthma exacerbation ICD Codes: J45.901 - Unspecified asthma with (acute) exacerbation Status: Acute (3) History of pulmonary embolism ICD Codes: Z86.711 - Personal history of pulmonary embolism Status: Acute (4) Hypertension ICD Codes: I10 - Essential (primary) hypertension Status: Acute (5) Hyperlipidemia ICD Codes: E78.5 - Hyperlipidemia, unspecified Status: Chronic Assessment and Plan Remains stable from cardiac standpoint, no arrhythmias. Continue tx for COPD exacerbation, as outlined by Dr. Hernandez. Continue anticoagulation with Eliquis (h /o DVT/PE). Continue monitoring. Increase activity, PT. Problem Qualifiers (1) Acute asthma exacerbation: Qualified Codes: J45.901 - Unspecified asthma with (acute) exacerbation Adam Moody MD Nov 25, 2017 15:06
--- NOTE | 2017-11-25 16:16 | HHI.PR ---
Subjective History of Present Illness Patient still SOB / Wheezing cardiology/ Pulmonary input noted have leukocytosis down trend will monitor. mild low sodium. Review of Systems Constitutional Constitutional: Fatigue, Weakness Throat Throat Remarks Oral thrush Pulmonary Respiratory: Coughing, Shortness of Breath, Wheezing Cardiology CV Remarks leg edema. Musculoskeletal MS Remarks Leg edema. Vitals/Results Vital Signs Vital Signs Date Time Temp Pulse Resp B/P (MAP) Pulse Ox O2 Delivery O2 Flow Rate FiO2 11/25/17 16:00 71 11/25/17 15:00 72 11/25/17 15:00 97.4 105 20 145/76 (99) 96 11/25/17 14:00 91 11/25/17 13:00 88 11/25/17 12:00 103 11/25/17 11:00 109 11/25/17 11:00 97.2 109 20 143/94 (110) 97 11/25/17 10:00 103 11/25/17 09:00 83 11/25/17 08:35 96 21 11/25/17 08:00 98.6 91 20 155/84 (107) 96 11/25/17 08:00 99 11/25/17 08:00 Room Air 11/25/17 07:00 91 11/25/17 06:00 83 11/25/17 05:00 78 11/25/17 04:00 84 11/25/17 04:00 97.9 93 18 148/95 (112) 96 11/25/17 03:09 96 11/25/17 03:00 80 11/25/17 02:00 80 11/25/17 01:00 84 11/25/17 00:00 87 11/25/17 00:00 97.7 89 18 142/87 (105) 96 11/24/17 23:59 97 11/24/17 23:00 92 11/24/17 22:00 104 11/24/17 21:00 94 11/24/17 20:00 97.7 94 20 138/85 (102) 95 11/24/17 20:00 Room Air 11/24/17 20:00 97 11/24/17 19:52 96 21 11/24/17 18:16 96 11/24/17 17:47 99 11/24/17 16:35 101 11/24/17 16:34 97.9 99 18 140/85 (103) 97 CBC/BMP: 11/25/17 0504 11/25/17 0504 Lab Results Laboratory Tests Test 11/25/17 05:04 White Blood Count 13.9 TH/MM3 Red Blood Count 4.97 MIL/MM3 Hemoglobin 14.4 GM/DL Hematocrit 42.9 % Mean Corpuscular Volume 86.3 FL Mean Corpuscular Hemoglobin 28.9 PG Mean Corpuscular Hemoglobin Concent 33.5 % Red Cell Distribution Width 15.5 % Platelet Count 236 TH/MM3 Mean Platelet Volume 7.4 FL Neutrophils (%) (Auto) 87.6 % Lymphocytes (%) (Auto) 4.8 % Monocytes (%) (Auto) 7.2 % Eosinophils (%) (Auto) 0.3 % Basophils (%) (Auto) 0.1 % Neutrophils # (Auto) 12.2 TH/MM3 Lymphocytes # (Auto) 0.7 TH/MM3 Monocytes # (Auto) 1.0 TH/MM3 Eosinophils # (Auto) 0.0 TH/MM3 Basophils # (Auto) 0.0 TH/MM3 CBC Comment AUTO DIFF Differential Total Cells Counted 100 Neutrophils % (Manual) 74 % Band Neutrophils % 7 % Lymphocytes % 9 % Monocytes % 4 % Neutrophils # (Manual) 12.1 TH/MM3 Metamyelocytes 2 % Myelocytes 4 % Differential Comment FINAL DIFF MANUAL Platelet Estimate NORMAL Platelet Morphology Comment NORMAL Ovalocytes 1+ Blood Urea Nitrogen 24 MG/DL Creatinine 0.98 MG/DL Random Glucose 158 MG/DL Total Protein 5.9 GM/DL Albumin 3.2 GM/DL Calcium Level 8.7 MG/DL Alkaline Phosphatase 109 U/L Aspartate Amino Transf (AST/SGOT) 21 U/L Alanine Aminotransferase (ALT/SGPT) 78 U/L Total Bilirubin 0.4 MG/DL Sodium Level 135 MEQ/L Potassium Level 4.4 MEQ/L Chloride Level 98 MEQ/L Carbon Dioxide Level 27.2 MEQ/L Anion Gap 10 MEQ/L Estimat Glomerular Filtration Rate 80 ML/MIN Physical Exam General General Appearance: Well Developed, Well Nourished, No Acute Distress Eyes Eye Exam: Pupils Equal, Pupils Reactive, Sclera White, Extraocular Movement Intact Throat Throat Exam: Oral Pharynx Normal Throat Remarks Oral Thrush Neck Neck Exam: Neck Supple, Trachea Midline Pulmonary Resp Exam: Crackles, Rhonchi, Decreased Bases, Diminished Breath Sounds Resp Remarks Bilateral wheezing. Gastrointestinal/Abdomen GI Exam: Soft, Non-Tender, Bowel Sounds Present Musculoskeletal MS Exam: Joints Intact Integumentary Skin Exam: Clear, Warm, Dry, Intact Extremeties Extremities Exam: Moderate Edema Neurologic Neuro Exam: Alert, Awake, Oriented, Speech Clear, Moving All Extremities, No Focal Deficits Psychiatric Psych Exam: Appropriate Responses VTE Prophylaxis VTE Remarks Eliquis. PUD Prophylasis PUD Prophylaxis: Protonix Assessment/Plan Assessment/Plan ASSESSMENT AND PLAN: 1. This is a 52-year-old male, came to the ER, diagnosed with acute respiratory distress/acute respiratory failure, is in acute chronic obstructive pulmonary disease exacerbation. Patient was on BiPAP. Pulmonary input noted. Patient also on DuoNeb nebulization every 4 hours, Prednisone 20 mg PO BID. and also off Antibiotic. Further recommendation per pulmonary. 2. Chronic obstructive pulmonary disease exacerbation. Patient is on prednisone 20 mg po bid. and DuoNeb nebulization. 3. History of hyperlipidemia. Continue with Lipitor 20 mg p.o. daily. 4. History of gastroesophageal reflux disease. Protonix 40 mg p.o. daily. 5. History of leg edema. on Lasix 40 mg IV b.i.d. 6. History of chronic obstructive pulmonary disease. Continue home medication. 7. History of hypertension. Continue with diltiazem 360 mg p.o. daily. add clonidine 0.1 mg every 6 hrs PRN if BP above 160/90. 8. History of benign prostatic hypertrophy. Continue with Flomax 0.4 mg p.o. daily. 9. History of depression. Continue home medication. 10. Anxiety. Continue home medication. 11. Deep venous thrombosis and pulmonary embolism. Continue with Eliquis 5 mg twice a day. 12. History of Iron deficiency anemia. Continue with ferrous sulfate 325 mg p.o. b.i.d. 13. Diabetes mellitus. ADA 1800 diet CHECK Blood blood sugar. Continue with metformin 500 mg twice a day. On Insulin sliding scale. 14. Deep venous thrombosis prophylaxis. Patient is on Eliquis 5 mg twice a day. 15. Gastrointestinal prophylaxis. Protonix 40 mg p.o. daily. 16. Burning urination ...Urine analysis negative for UTI. 17. Leukocytosis on steroids will monitor. down trend. 18. Oral thrush on Nystatin. 19. Left upper extremity pain ...venous dopler shows basilic vein thrombosis no additional anticoagulation needed per hematology, IV site Changed. We are going to manage the patient on daily basis and make recommendations on daily basis. Check CBC with diff CMP in AM. Discussed Condition with: Patient Myron Woodward MD Nov 25, 2017 16:16
[2017-11-25] MEDS: MONTELUKAST SODIUM 10 MG TAB PO SCH (21:43)
[2017-11-25] MEDS: ATORVASTATIN 20 MG TAB PO SCH (21:43)
[2017-11-25] MEDS: PANTOPRAZOLE SOD 40 MG DELAYED RELEASE TAB PO SCH (21:44)
[2017-11-26] VITALS (25 sets, daily range): BP systolic 128–156; BP diastolic 75–98; PULSE 77–121; RESP 17–20; TEMP 97.6–98.6; O2SAT 93–96
[2017-11-26] MEDS: RESP: ALBUTEROL 2.5 MG/IPRATROPIUM 0.5 MG NEB (SCH) NEB ×7 (04:51→23:23)
[2017-11-26 06:41] LABS: AUTOMATED NEUTROPHIL # 12.2 TH/MM3 (1.8-7.7); BASOPHIL % 0.1 % (0.0-2.0); EOSINOPHIL # 0.1 TH/MM3 (0-0.4); EOSINOPHIL % 0.7 % (0.0-4.0); HEMOGLOBIN 14.7 GM/DL (13.0-17.0); LYMPH % 8.1 % (9.0-44.0); LYMPHOCYTE # 1.2 TH/MM3 (1.0-4.8); MEAN CELL VOLUME 87.1 FL (80.0-100.0); MEAN CORPUSCULAR HEMOGLOBIN 29.1 PG (27.0-34.0); MEAN CORPUSCULAR HGB CONC 33.4 % (32.0-36.0); MEAN PLATELET VOLUME 7.4 FL (7.0-11.0); MONO % 6.6 % (0.0-8.0); MONOCYTE # 0.9 TH/MM3 (0-0.9); NEUT % 84.5 % (16.0-70.0); PLATELET COUNT 222 TH/MM3 (150-450); RED BLOOD COUNT 5.05 MIL/MM3 (4.50-5.90); RED CELL DISTRIBUTION WIDTH 15.5 % (11.6-17.2); WHITE BLOOD COUNT 14.4 TH/MM3 (4.0-11.0)
[2017-11-26 07:00] LABS: ALBUMIN 3.3 GM/DL (3.4-5.0); AST (GOT) 12 U/L (15-37); BICARBONATE 27.1 MEQ/L (21.0-32.0); BLOOD UREA NITROGEN 22 MG/DL (7-18); CALCIUM 9.1 MG/DL (8.5-10.1); CHLORIDE 98 MEQ/L (98-107); CREATININE 0.99 MG/DL (0.60-1.30); GLOMERULAR FILTRATION RATE 79 ML/MIN (>89); GLUCOSE,RANDOM 175 MG/DL (74-106); SODIUM (NA) 135 MEQ/L (136-145)
[2017-11-26 07:01] LABS: ALT (GPT) 68 U/L (12-78)
[2017-11-26 07:03] LABS: ALKALINE PHOSPHATASE 99 U/L (45-117); TOTAL BILIRUBIN ADULT 0.4 MG/DL (0.2-1.0); TOTAL PROTEIN 5.9 GM/DL (6.4-8.2)
[2017-11-26 07:38] LABS: BANDS 6 % (0-6); LYMPHOCYTES 5 % (9-44); METAMYELOCYTES 4 % (0-1); MONOCYTES 3 % (0-8); MYELOCYTES 9 % (0-0); NEUTROPHIL # MANUAL DIFF 13.1 TH/MM3 (1.8-7.7); POLYS (SEG NEUTROPHILS) 69 % (16-70); PROMYELOCYTES 3 % (0-0)
[2017-11-26] MEDS: INSULIN ASPART SUPPLEMENTAL SCALE SQ SCH ×4 (08:30→23:00)
[2017-11-26] MEDS: metFORMIN HCL 500 MG TAB PO SCH ×2 (09:26→17:13)
[2017-11-26] MEDS: FUROSEMIDE 40 MG/4 ML VIAL IV PUSH SCH ×2 (09:26→17:14)
[2017-11-26] MEDS: TAMSULOSIN HCL 0.4 MG CAP PO SCH (09:26)
[2017-11-26] MEDS: NYSTATIN SUSP 500,000 U/5 ML CUP SWISH-SWAL SCH ×4 (09:26→22:42)
[2017-11-26] MEDS: predniSONE 20 MG TAB PO SCH ×2 (09:26→22:40)
[2017-11-26] MEDS: LORazepam 0.5 MG TAB PO SCH ×2 (09:26→22:40)
[2017-11-26] MEDS: FERROUS SULFATE 325 MG (65 MG ELEMENTAL IRON) TAB PO SCH ×2 (09:26→22:40)
[2017-11-26] MEDS: APIXABAN 5 MG TABLET PO SCH ×2 (09:26→22:40)
[2017-11-26] MEDS: DOCUSATE SODIUM 50 MG/SENNA 8.6 MG TAB PO SCH ×2 (09:27→22:40)
[2017-11-26] MEDS: BUDESONIDE-FORMOTEROL 160/4.5 MCG INHALER INH SCH ×2 (09:27→22:41)
[2017-11-26] MEDS: POTASSIUM CHLORIDE 20 MEQ CONTROLLED RELEASE TAB PO SCH ×2 (09:27→22:40)
[2017-11-26] MEDS: SODIUM CHLORIDE 0.9% FLUSH 10 ML FLUSH IV FLUSH SCH ×2 (09:28→22:41)
[2017-11-26] MEDS: DILTIAZEM-CD 180 MG CAP ER PO SCH (09:31)
--- NOTE | 2017-11-26 12:06 | HHI.PR ---
Subjective History of Present Illness Patient still SOB / Wheezing cardiology/ Pulmonary input noted have leukocytosis will monitor. mild low sodium. possible discharge tomorrow. Review of Systems Constitutional Constitutional: Fatigue, Weakness Throat Throat Remarks Oral thrush Pulmonary Respiratory: Coughing, Shortness of Breath, Wheezing Cardiology CV Remarks leg edema. Musculoskeletal MS Remarks Leg edema. Vitals/Results Vital Signs Vital Signs Date Time Temp Pulse Resp B/P (MAP) Pulse Ox O2 Delivery O2 Flow Rate FiO2 11/26/17 11:29 97.9 111 18 141/75 (97) 96 11/26/17 10:00 110 11/26/17 09:16 93 21 11/26/17 09:00 90 11/26/17 08:00 86 11/26/17 07:58 96 Room Air 11/26/17 07:58 97.6 99 17 128/79 (95) 96 11/26/17 07:00 77 11/26/17 06:00 98 11/26/17 05:00 86 11/26/17 04:00 97.9 86 18 142/98 (113) 95 11/26/17 04:00 96 11/26/17 03:00 80 11/26/17 02:00 80 11/26/17 01:00 92 11/26/17 00:00 92 11/26/17 00:00 97.9 93 18 143/89 (107) 96 11/25/17 23:00 104 11/25/17 22:00 104 11/25/17 21:00 106 11/25/17 20:00 Room Air 11/25/17 20:00 97.9 108 18 153/88 (109) 94 11/25/17 20:00 107 11/25/17 19:35 95 21 11/25/17 18:00 96 11/25/17 17:00 97 11/25/17 16:00 71 11/25/17 15:00 72 11/25/17 15:00 97.4 105 20 145/76 (99) 96 11/25/17 14:00 91 11/25/17 13:00 88 CBC/BMP: 11/26/17 0541 11/26/17 0541 Lab Results Laboratory Tests Test 11/26/17 05:41 White Blood Count 14.4 TH/MM3 Red Blood Count 5.05 MIL/MM3 Hemoglobin 14.7 GM/DL Hematocrit 44.0 % Mean Corpuscular Volume 87.1 FL Mean Corpuscular Hemoglobin 29.1 PG Mean Corpuscular Hemoglobin Concent 33.4 % Red Cell Distribution Width 15.5 % Platelet Count 222 TH/MM3 Mean Platelet Volume 7.4 FL Neutrophils (%) (Auto) 84.5 % Lymphocytes (%) (Auto) 8.1 % Monocytes (%) (Auto) 6.6 % Eosinophils (%) (Auto) 0.7 % Basophils (%) (Auto) 0.1 % Neutrophils # (Auto) 12.2 TH/MM3 Lymphocytes # (Auto) 1.2 TH/MM3 Monocytes # (Auto) 0.9 TH/MM3 Eosinophils # (Auto) 0.1 TH/MM3 Basophils # (Auto) 0.0 TH/MM3 CBC Comment AUTO DIFF Differential Total Cells Counted 100 Neutrophils % (Manual) 69 % Band Neutrophils % 6 % Lymphocytes % 5 % Monocytes % 3 % Eosinophils % 1 % Neutrophils # (Manual) 13.1 TH/MM3 Metamyelocytes 4 % Myelocytes 9 % Promyelocytes 3 % Differential Comment FINAL DIFF MANUAL Platelet Estimate NORMAL Platelet Morphology Comment NORMAL Red Cell Morphology Comment NORMAL Blood Urea Nitrogen 22 MG/DL Creatinine 0.99 MG/DL Random Glucose 175 MG/DL Total Protein 5.9 GM/DL Albumin 3.3 GM/DL Calcium Level 9.1 MG/DL Alkaline Phosphatase 99 U/L Aspartate Amino Transf (AST/SGOT) 12 U/L Alanine Aminotransferase (ALT/SGPT) 68 U/L Total Bilirubin 0.4 MG/DL Sodium Level 135 MEQ/L Potassium Level 4.0 MEQ/L Chloride Level 98 MEQ/L Carbon Dioxide Level 27.1 MEQ/L Anion Gap 10 MEQ/L Estimat Glomerular Filtration Rate 79 ML/MIN Physical Exam General General Appearance: Well Developed, Well Nourished, No Acute Distress Eyes Eye Exam: Pupils Equal, Pupils Reactive, Sclera White, Extraocular Movement Intact Throat Throat Exam: Oral Pharynx Normal Throat Remarks Oral Thrush Neck Neck Exam: Neck Supple, Trachea Midline Pulmonary Resp Exam: Crackles, Rhonchi, Decreased Bases, Diminished Breath Sounds Resp Remarks Bilateral wheezing. Gastrointestinal/Abdomen GI Exam: Soft, Non-Tender, Bowel Sounds Present Musculoskeletal MS Exam: Joints Intact Integumentary Skin Exam: Clear, Warm, Dry, Intact Extremeties Extremities Exam: Moderate Edema Neurologic Neuro Exam: Alert, Awake, Oriented, Speech Clear, Moving All Extremities, No Focal Deficits Psychiatric Psych Exam: Appropriate Responses VTE Prophylaxis VTE Remarks Eliquis. PUD Prophylasis PUD Prophylaxis: Protonix Assessment/Plan Assessment/Plan ASSESSMENT AND PLAN: 1. This is a 52-year-old male, came to the ER, diagnosed with acute respiratory distress/acute respiratory failure, is in acute chronic obstructive pulmonary disease exacerbation. Patient was on BiPAP. Pulmonary input noted. Patient also on DuoNeb nebulization every 4 hours, Prednisone 20 mg PO BID. and also off Antibiotic. Further recommendation per pulmonary. 2. Chronic obstructive pulmonary disease exacerbation. Patient is on prednisone 20 mg po bid. and DuoNeb nebulization. 3. History of hyperlipidemia. Continue with Lipitor 20 mg p.o. daily. 4. History of gastroesophageal reflux disease. Protonix 40 mg p.o. daily. 5. History of leg edema. on Lasix 40 mg IV b.i.d. 6. History of chronic obstructive pulmonary disease. Continue home medication. 7. History of hypertension. Continue with diltiazem 360 mg p.o. daily. add clonidine 0.1 mg every 6 hrs PRN if BP above 160/90. 8. History of benign prostatic hypertrophy. Continue with Flomax 0.4 mg p.o. daily. 9. History of depression. Continue home medication. 10. Anxiety. Continue home medication. 11. Deep venous thrombosis and pulmonary embolism. Continue with Eliquis 5 mg twice a day. 12. History of Iron deficiency anemia. Continue with ferrous sulfate 325 mg p.o. b.i.d. 13. Diabetes mellitus. ADA 1800 diet CHECK Blood blood sugar. Continue with metformin 500 mg twice a day. On Insulin sliding scale. 14. Deep venous thrombosis prophylaxis. Patient is on Eliquis 5 mg twice a day. 15. Gastrointestinal prophylaxis. Protonix 40 mg p.o. daily. 16. Burning urination ...Urine analysis negative for UTI. 17. Leukocytosis on steroids will monitor. 18. Oral thrush on Nystatin. 19. Left upper extremity pain ...venous dopler shows basilic vein thrombosis no additional anticoagulation needed per hematology, IV site Changed. We are going to manage the patient on daily basis and make recommendations on daily basis. Check CBC with diff CMP in AM. possible discharge tomorrow. Discussed Condition with: Patient Myron Woodward MD 21, 2018 12:06
[2017-11-26] MEDS ORDERED: Nystatin Liq SWISH-SWAL (12:08)
--- NOTE | 2017-11-26 16:01 | HHI.PR ---
Subjective Remarks ALERT LESS SOB OCC WHEEZE appetite good Objective Vital Signs Date Time Temp Pulse Resp B/P (MAP) Pulse Ox O2 Delivery O2 Flow Rate FiO2 11/26/17 15:00 121 11/26/17 14:00 110 11/26/17 13:00 106 11/26/17 12:00 104 11/26/17 11:29 97.9 111 18 141/75 (97) 96 11/26/17 11:00 97 11/26/17 10:00 110 11/26/17 09:16 93 21 11/26/17 09:00 90 11/26/17 08:00 86 11/26/17 07:58 96 Room Air 11/26/17 07:58 97.6 99 17 128/79 (95) 96 11/26/17 07:00 77 11/26/17 06:00 98 11/26/17 05:00 86 11/26/17 04:00 97.9 86 18 142/98 (113) 95 11/26/17 04:00 96 11/26/17 03:00 80 11/26/17 02:00 80 11/26/17 01:00 92 11/26/17 00:00 92 11/26/17 00:00 97.9 93 18 143/89 (107) 96 11/25/17 23:00 104 11/25/17 22:00 104 11/25/17 21:00 106 11/25/17 20:00 Room Air 11/25/17 20:00 97.9 108 18 153/88 (109) 94 11/25/17 20:00 107 11/25/17 19:35 95 21 11/25/17 18:00 96 11/25/17 17:00 97 I/O 11/25/17 11/25/17 11/25/17 11/26/17 11/26/17 11/26/17 07:00 15:00 23:00 07:00 15:00 23:00 Intake Total 1680 ml 480 ml Output Total 3900 ml 1950 ml 1300 ml Balance -3900 ml -270 ml -820 ml Intake Oral 1680 ml 480 ml Output Urine Total 3900 ml 1950 ml 1300 ml # Bowel Movements 2 1 Result Diagram: 11/26/17 0541 11/26/17 0541 Objective Remarks GENERAL: SKIN: Warm and dry. HEAD: Atraumatic. Normocephalic. EYES: Pupils equal and round. No scleral icterus. No injection or drainage. ENT: No nasal bleeding or discharge. Mucous membranes pink and moist. NECK: Trachea midline. No JVD. CARDIOVASCULAR: Regular rate and rhythm. RESPIRATORY: No accessory muscle use. Clear to auscultation. Breath sounds equal bilaterally. GASTROINTESTINAL: Abdomen soft, non-tender, nondistended. Hepatic and splenic margins not palpable. MUSCULOSKELETAL: Extremities without clubbing, cyanosis, or edema. No obvious deformities. NEUROLOGICAL: Awake and alert. No obvious cranial nerve deficits. Motor grossly within normal limits. Five out of 5 muscle strength in the arms and legs. Normal speech. PSYCHIATRIC: Appropriate mood and affect; insight and judgment normal. Assessment and Plan Assessment and Plan COPD EXACERBATION improving [place] O2 NEEDED BRONCHODILATORS CHANGE TO ORAL STEROIDS ANTIBX OK FOR D/C PULMONARY [facility] WILL SIGN OFF OFFICE 1 Mary Colin MD Nov 26, 2017 16:01
--- NOTE | 2017-11-26 17:51 | PD.CARD.PN ---
Subjective Subjective Remarks Still SOB and wheezing, no CP Objective Medications Current Medications Medications (Trade) Dose Ordered Sig/Gabi Route Start Time Stop Time Status Last Admin (NS Flush) 2 ml UNSCH PRN IV FLUSH 11/17/17 09:30 11/20/17 12:59 (NS Flush) 2 ml BID IV FLUSH 11/17/17 09:30 11/26/17 09:28 (Tylenol) 650 mg Q4H PRN PO 11/17/17 09:30 (Zofran Inj) 4 mg Q6H PRN IVP 11/17/17 09:30 (Narcan Inj) 0.4 mg UNSCH PRN IV PUSH 11/17/17 09:30 (Clare-Colace) 1 tab BID PO 11/17/17 09:30 11/26/17 09:27 (Milk Of Magnesia Liq) 30 ml Q12H PRN PO 11/17/17 09:30 (Senokot) 17.2 mg Q12H PRN PO 11/17/17 09:30 (Dulcolax Supp) 10 mg DAILY PRN RECTAL 11/17/17 09:30 (Lactulose Liq) 30 ml DAILY PRN PO 11/17/17 09:30 (Eliquis) 5 mg BID PO 11/17/17 09:30 11/26/17 09:26 (Lipitor) 20 mg HS PO 11/17/17 21:00 11/25/17 21:43 (Symbicort 160-4.5 Mcg Inh) 2 puff Q12HR INH 11/17/17 11:00 11/26/17 09:27 (Cardizem Cd) 360 mg DAILY PO 11/17/17 11:00 11/26/17 09:31 (Ferrous Sulfate) 325 mg BID PO 11/17/17 09:30 11/26/17 09:26 (Ativan) 0.5 mg BID PO 11/17/17 09:30 11/26/17 09:26 (Glucophage) 500 mg BIDPC PO 11/17/17 09:30 11/26/17 17:13 (Singulair) 10 mg HS PO 11/17/17 21:00 11/25/17 21:43 (KCl) 20 meq BID PO 11/17/17 11:00 11/26/17 09:27 (Flomax) 0.4 mg DAILY PO 11/17/17 11:00 11/26/17 09:26 (Albuterol Neb) 1.25 mg BID NEB PRN NEB 11/17/17 10:30 11/23/17 02:16 (Protonix) 40 mg HS PO 11/17/17 21:00 11/25/17 21:44 (Lasix Inj) 40 mg BID@,18 IV PUSH 11/17/17 18:00 11/26/17 17:14 (D50w (Vial) Inj) 50 ml UNSCH PRN IV PUSH 11/17/17 11:30 (Glucagon Inj) 1 mg UNSCH PRN OTHER 11/17/17 11:30 (NovoLOG SUPPLEMENTAL SCALE) 1 ACHS SLIDING SCALE SQ 11/17/17 13:00 11/26/17 17:13 (Mycostatin Liq) 5 ml QID SWISH-SWAL 11/21/17 21:00 11/26/17 17:13 (Deltasone) 20 mg BID PO 11/22/17 21:00 11/26/17 09:26 (Catapres) 0.1 mg Q6H PRN PO 11/23/17 12:30 (Duoneb Neb) 1 ampule Q4HR NEB NEB 11/23/17 16:00 11/26/17 15:45 Vital Signs / I&O Vital Signs Date Time Temp Pulse Resp B/P (MAP) Pulse Ox O2 Delivery O2 Flow Rate FiO2 11/26/17 17:00 90 11/26/17 16:25 98.0 105 18 156/94 (114) 96 11/26/17 16:00 104 11/26/17 15:00 121 11/26/17 14:00 110 11/26/17 13:00 106 11/26/17 12:00 104 11/26/17 11:29 97.9 111 18 141/75 (97) 96 11/26/17 11:00 97 11/26/17 10:00 110 11/26/17 09:16 93 21 11/26/17 09:00 90 11/26/17 08:00 86 11/26/17 07:58 96 Room Air 11/26/17 07:58 97.6 99 17 128/79 (95) 96 11/26/17 07:00 77 11/26/17 06:00 98 11/26/17 05:00 86 11/26/17 04:00 97.9 86 18 142/98 (113) 95 11/26/17 04:00 96 11/26/17 03:00 80 11/26/17 02:00 80 11/26/17 01:00 92 11/26/17 00:00 92 11/26/17 00:00 97.9 93 18 143/89 (107) 96 11/25/17 23:00 104 11/25/17 22:00 104 11/25/17 21:00 106 11/25/17 20:00 Room Air 11/25/17 20:00 97.9 108 18 153/88 (109) 94 11/25/17 20:00 107 11/25/17 19:35 95 21 11/25/17 18:00 96 I/O 11/25/17 11/25/17 11/25/17 11/26/17 11/26/17 11/26/17 07:00 15:00 23:00 07:00 15:00 23:00 Intake Total 1680 ml 480 ml 1300 ml Output Total 3900 ml 1950 ml 1300 ml 2100 ml Balance -3900 ml -270 ml -820 ml -800 ml Intake Oral 1680 ml 480 ml 1300 ml Output Urine Total 3900 ml 1950 ml 1300 ml 2100 ml # Bowel Movements 2 1 1 Physical Exam GENERAL: In NAD SKIN: Warm and dry. HEAD: Normocephalic. EYES: No scleral icterus. No injection or drainage. NECK: Supple, trachea midline. No JVD or lymphadenopathy. CARDIOVASCULAR: Regular rate and rhythm without murmurs, gallops, or rubs. RESPIRATORY: Breath sounds equal bilaterally. No accessory muscle use. Diffuse bilat wheezing GASTROINTESTINAL: Abdomen soft, non-tender, nondistended. MUSCULOSKELETAL: No cyanosis, or edema. Laboratory Laboratory Tests Test 11/26/17 05:41 White Blood Count 14.4 TH/MM3 Red Blood Count 5.05 MIL/MM3 Hemoglobin 14.7 GM/DL Hematocrit 44.0 % Mean Corpuscular Volume 87.1 FL Mean Corpuscular Hemoglobin 29.1 PG Mean Corpuscular Hemoglobin Concent 33.4 % Red Cell Distribution Width 15.5 % Platelet Count 222 TH/MM3 Mean Platelet Volume 7.4 FL Neutrophils (%) (Auto) 84.5 % Lymphocytes (%) (Auto) 8.1 % Monocytes (%) (Auto) 6.6 % Eosinophils (%) (Auto) 0.7 % Basophils (%) (Auto) 0.1 % Neutrophils # (Auto) 12.2 TH/MM3 Lymphocytes # (Auto) 1.2 TH/MM3 Monocytes # (Auto) 0.9 TH/MM3 Eosinophils # (Auto) 0.1 TH/MM3 Basophils # (Auto) 0.0 TH/MM3 CBC Comment AUTO DIFF Differential Total Cells Counted 100 Neutrophils % (Manual) 69 % Band Neutrophils % 6 % Lymphocytes % 5 % Monocytes % 3 % Eosinophils % 1 % Neutrophils # (Manual) 13.1 TH/MM3 Metamyelocytes 4 % Myelocytes 9 % Promyelocytes 3 % Differential Comment FINAL DIFF MANUAL Platelet Estimate NORMAL Platelet Morphology Comment NORMAL Red Cell Morphology Comment NORMAL Blood Urea Nitrogen 22 MG/DL Creatinine 0.99 MG/DL Random Glucose 175 MG/DL Total Protein 5.9 GM/DL Albumin 3.3 GM/DL Calcium Level 9.1 MG/DL Alkaline Phosphatase 99 U/L Aspartate Amino Transf (AST/SGOT) 12 U/L Alanine Aminotransferase (ALT/SGPT) 68 U/L Total Bilirubin 0.4 MG/DL Sodium Level 135 MEQ/L Potassium Level 4.0 MEQ/L Chloride Level 98 MEQ/L Carbon Dioxide Level 27.1 MEQ/L Anion Gap 10 MEQ/L Estimat Glomerular Filtration Rate 79 ML/MIN Assessment and Plan Problem List: (1) Acute hypercapnic respiratory failure ICD Codes: J96.02 - Acute respiratory failure with hypercapnia Status: Acute (2) Acute asthma exacerbation ICD Codes: J45.901 - Unspecified asthma with (acute) exacerbation Status: Acute (3) History of pulmonary embolism ICD Codes: Z86.711 - Personal history of pulmonary embolism Status: Acute (4) Hypertension ICD Codes: I10 - Essential (primary) hypertension Status: Acute (5) Hyperlipidemia ICD Codes: E78.5 - Hyperlipidemia, unspecified Status: Chronic Assessment and Plan No new cardiac issues. Remains stable from cardiac standpoint, no arrhythmias. Continue tx for COPD exacerbation, as outlined by Dr. Hernandez. Very slow progress. Continue anticoagulation with Eliquis (h/o DVT/PE). Continue monitoring. Increase activity. Problem Qualifiers (1) Acute asthma exacerbation: Qualified Codes: J45.901 - Unspecified asthma with (acute) exacerbation Adam Moody MD Nov 26, 2017 17:51
[2017-11-26] MEDS: MONTELUKAST SODIUM 10 MG TAB PO SCH (22:40)
[2017-11-26] MEDS: PANTOPRAZOLE SOD 40 MG DELAYED RELEASE TAB PO SCH (22:42)
[2017-11-26] MEDS: ATORVASTATIN 20 MG TAB PO SCH (22:42)
[2017-11-27] VITALS (24 sets, daily range): BP systolic 128–161; BP diastolic 78–93; PULSE 76–114; RESP 16–20; TEMP 97.9–98.9; O2SAT 95–97
[2017-11-27] MEDS: RESP: ALBUTEROL 2.5 MG/IPRATROPIUM 0.5 MG NEB (SCH) NEB ×5 (04:29→23:35)
[2017-11-27 06:55] LABS: AUTOMATED NEUTROPHIL # 14.9 TH/MM3 (1.8-7.7); BASOPHIL % 0.1 % (0.0-2.0); EOSINOPHIL % 0.2 % (0.0-4.0); HEMATOCRIT 45.1 % (39.0-51.0); HEMOGLOBIN 15.2 GM/DL (13.0-17.0); LYMPH % 5.3 % (9.0-44.0); LYMPHOCYTE # 0.9 TH/MM3 (1.0-4.8); MEAN CELL VOLUME 86.4 FL (80.0-100.0); MEAN CORPUSCULAR HGB CONC 33.6 % (32.0-36.0); MEAN PLATELET VOLUME 7.7 FL (7.0-11.0); MONO % 5.5 % (0.0-8.0); MONOCYTE # 0.9 TH/MM3 (0-0.9); NEUT % 88.9 % (16.0-70.0); PLATELET COUNT 222 TH/MM3 (150-450); RED BLOOD COUNT 5.22 MIL/MM3 (4.50-5.90); RED CELL DISTRIBUTION WIDTH 15.4 % (11.6-17.2); WHITE BLOOD COUNT 16.8 TH/MM3 (4.0-11.0)
[2017-11-27 07:17] LABS: ALBUMIN 3.4 GM/DL (3.4-5.0); AST (GOT) 12 U/L (15-37); BICARBONATE 24.3 MEQ/L (21.0-32.0); BLOOD UREA NITROGEN 19 MG/DL (7-18); CALCIUM 8.7 MG/DL (8.5-10.1); CHLORIDE 98 MEQ/L (98-107); CREATININE 1.04 MG/DL (0.60-1.30); GLOMERULAR FILTRATION RATE 75 ML/MIN (>89); GLUCOSE,RANDOM 204 MG/DL (74-106); SODIUM (NA) 135 MEQ/L (136-145)
[2017-11-27 07:22] LABS: ALKALINE PHOSPHATASE 105 U/L (45-117); ALT (GPT) 64 U/L (12-78); TOTAL BILIRUBIN ADULT 0.4 MG/DL (0.2-1.0); TOTAL PROTEIN 6.2 GM/DL (6.4-8.2)
[2017-11-27] MEDS: NYSTATIN SUSP 500,000 U/5 ML CUP SWISH-SWAL SCH ×3 (09:00→22:38)
[2017-11-27 09:34] LABS: BANDS 2 % (0-6); LYMPHOCYTES 5 % (9-44); METAMYELOCYTES 5 % (0-1); MONOCYTES 6 % (0-8); MYELOCYTES 4 % (0-0); POLYS (SEG NEUTROPHILS) 78 % (16-70)
[2017-11-27] MEDS: BUDESONIDE-FORMOTEROL 160/4.5 MCG INHALER INH SCH ×2 (09:38→22:39)
[2017-11-27] MEDS: FUROSEMIDE 40 MG/4 ML VIAL IV PUSH SCH ×2 (09:39→18:28)
[2017-11-27] MEDS: DILTIAZEM-CD 180 MG CAP ER PO SCH (09:40)
[2017-11-27] MEDS: SODIUM CHLORIDE 0.9% FLUSH 10 ML FLUSH IV FLUSH SCH ×2 (09:40→22:39)
[2017-11-27] MEDS: DOCUSATE SODIUM 50 MG/SENNA 8.6 MG TAB PO SCH ×2 (09:40→22:38)
[2017-11-27] MEDS: FERROUS SULFATE 325 MG (65 MG ELEMENTAL IRON) TAB PO SCH ×2 (09:40→22:37)
[2017-11-27] MEDS: metFORMIN HCL 500 MG TAB PO SCH ×2 (09:40→18:29)
[2017-11-27] MEDS: APIXABAN 5 MG TABLET PO SCH ×2 (09:41→22:38)
[2017-11-27] MEDS: LORazepam 0.5 MG TAB PO SCH ×2 (09:41→22:39)
[2017-11-27] MEDS: TAMSULOSIN HCL 0.4 MG CAP PO SCH (09:41)
[2017-11-27] MEDS: POTASSIUM CHLORIDE 20 MEQ CONTROLLED RELEASE TAB PO SCH ×2 (09:41→22:38)
[2017-11-27] MEDS: predniSONE 20 MG TAB PO SCH ×2 (09:43→22:37)
[2017-11-27] MEDS: INSULIN ASPART SUPPLEMENTAL SCALE SQ SCH ×3 (12:16→23:00)
--- NOTE | 2017-11-27 13:11 | PD.CARD.PN ---
Subjective Subjective Remarks Does not feel better, still SOB, no CP Objective Medications Current Medications Medications (Trade) Dose Ordered Sig/Gabi Route Start Time Stop Time Status Last Admin (NS Flush) 2 ml UNSCH PRN IV FLUSH 11/17/17 09:30 11/20/17 12:59 (NS Flush) 2 ml BID IV FLUSH 11/17/17 09:30 11/27/17 09:40 (Tylenol) 650 mg Q4H PRN PO 11/17/17 09:30 (Zofran Inj) 4 mg Q6H PRN IVP 11/17/17 09:30 (Narcan Inj) 0.4 mg UNSCH PRN IV PUSH 11/17/17 09:30 (Clare-Colace) 1 tab BID PO 11/17/17 09:30 11/27/17 09:40 (Milk Of Magnesia Liq) 30 ml Q12H PRN PO 11/17/17 09:30 (Senokot) 17.2 mg Q12H PRN PO 11/17/17 09:30 (Dulcolax Supp) 10 mg DAILY PRN RECTAL 11/17/17 09:30 (Lactulose Liq) 30 ml DAILY PRN PO 11/17/17 09:30 (Eliquis) 5 mg BID PO 11/17/17 09:30 11/27/17 09:41 (Lipitor) 20 mg HS PO 11/17/17 21:00 11/26/17 22:42 (Symbicort 160-4.5 Mcg Inh) 2 puff Q12HR INH 11/17/17 11:00 11/27/17 09:38 (Cardizem Cd) 360 mg DAILY PO 11/17/17 11:00 11/27/17 09:40 (Ferrous Sulfate) 325 mg BID PO 11/17/17 09:30 11/27/17 09:40 (Ativan) 0.5 mg BID PO 11/17/17 09:30 11/27/17 09:41 (Glucophage) 500 mg BIDPC PO 11/17/17 09:30 11/27/17 09:40 (Singulair) 10 mg HS PO 11/17/17 21:00 11/26/17 22:40 (KCl) 20 meq BID PO 11/17/17 11:00 11/27/17 09:41 (Flomax) 0.4 mg DAILY PO 11/17/17 11:00 11/27/17 09:41 (Albuterol Neb) 1.25 mg BID NEB PRN NEB 11/17/17 10:30 11/23/17 02:16 (Protonix) 40 mg HS PO 11/17/17 21:00 11/26/17 22:42 (Lasix Inj) 40 mg BID@ IV PUSH 11/17/17 18:00 11/27/17 09:39 (D50w (Vial) Inj) 50 ml UNSCH PRN IV PUSH 11/17/17 11:30 (Glucagon Inj) 1 mg UNSCH PRN OTHER 11/17/17 11:30 (NovoLOG SUPPLEMENTAL SCALE) 1 ACHS SLIDING SCALE SQ 11/17/17 13:00 11/27/17 12:16 (Mycostatin Liq) 5 ml QID SWISH-SWAL 11/21/17 21:00 11/26/17 22:42 (Deltasone) 20 mg BID PO 11/22/17 21:00 11/27/17 09:43 (Catapres) 0.1 mg Q6H PRN PO 11/23/17 12:30 (Duoneb Neb) 1 ampule Q4HR NEB NEB 11/23/17 16:00 11/27/17 11:17 Vital Signs / I&O Vital Signs Date Time Temp Pulse Resp B/P (MAP) Pulse Ox O2 Delivery O2 Flow Rate FiO2 11/27/17 07:37 97 11/27/17 06:57 89 11/27/17 06:57 96 Room Air 11/27/17 06:57 98.9 89 20 130/78 (95) 96 11/27/17 05:00 84 11/27/17 04:00 98.6 88 16 161/93 (115) 95 11/27/17 04:00 80 11/27/17 03:00 76 11/27/17 00:00 98.6 83 16 151/88 (109) 96 11/26/17 20:00 98.6 103 20 147/88 (107) 96 11/26/17 20:00 96 Room Air 11/26/17 19:37 96 21 11/26/17 18:00 88 11/26/17 17:00 90 11/26/17 16:25 98.0 105 18 156/94 (114) 96 11/26/17 16:00 104 11/26/17 15:00 121 11/26/17 14:00 110 I/O 11/26/17 11/26/17 11/26/17 11/27/17 11/27/17 11/27/17 07:00 15:00 23:00 07:00 15:00 23:00 Intake Total 480 ml 1300 ml 480 ml Output Total 1300 ml 2100 ml 800 ml Balance -820 ml -800 ml -320 ml Intake Oral 480 ml 1300 ml 480 ml Output Urine Total 1300 ml 2100 ml 800 ml # Bowel Movements 1 1 1 Physical Exam GENERAL: In NAD SKIN: Warm and dry. HEAD: Normocephalic. EYES: No scleral icterus. No injection or drainage. NECK: Supple, trachea midline. No JVD or lymphadenopathy. CARDIOVASCULAR: Regular rate and rhythm without murmurs, gallops, or rubs. RESPIRATORY: Breath sounds equal bilaterally. No accessory muscle use. Diffuse wheezing GASTROINTESTINAL: Abdomen soft, non-tender, nondistended. MUSCULOSKELETAL: No cyanosis, or edema. Laboratory Laboratory Tests Test 11/27/17 06:02 White Blood Count 16.8 TH/MM3 Red Blood Count 5.22 MIL/MM3 Hemoglobin 15.2 GM/DL Hematocrit 45.1 % Mean Corpuscular Volume 86.4 FL Mean Corpuscular Hemoglobin 29.0 PG Mean Corpuscular Hemoglobin Concent 33.6 % Red Cell Distribution Width 15.4 % Platelet Count 222 TH/MM3 Mean Platelet Volume 7.7 FL Neutrophils (%) (Auto) 88.9 % Lymphocytes (%) (Auto) 5.3 % Monocytes (%) (Auto) 5.5 % Eosinophils (%) (Auto) 0.2 % Basophils (%) (Auto) 0.1 % Neutrophils # (Auto) 14.9 TH/MM3 Lymphocytes # (Auto) 0.9 TH/MM3 Monocytes # (Auto) 0.9 TH/MM3 Eosinophils # (Auto) 0.0 TH/MM3 Basophils # (Auto) 0.0 TH/MM3 CBC Comment AUTO DIFF Differential Total Cells Counted 100 Neutrophils % (Manual) 78 % Band Neutrophils % 2 % Lymphocytes % 5 % Monocytes % 6 % Neutrophils # (Manual) 15.0 TH/MM3 Metamyelocytes 5 % Myelocytes 4 % Differential Comment FINAL DIFF MANUAL Platelet Estimate NORMAL Platelet Morphology Comment NORMAL Red Cell Morphology Comment NORMAL Blood Urea Nitrogen 19 MG/DL Creatinine 1.04 MG/DL Random Glucose 204 MG/DL Total Protein 6.2 GM/DL Albumin 3.4 GM/DL Calcium Level 8.7 MG/DL Alkaline Phosphatase 105 U/L Aspartate Amino Transf (AST/SGOT) 12 U/L Alanine Aminotransferase (ALT/SGPT) 64 U/L Total Bilirubin 0.4 MG/DL Sodium Level 135 MEQ/L Potassium Level 4.0 MEQ/L Chloride Level 98 MEQ/L Carbon Dioxide Level 24.3 MEQ/L Anion Gap 13 MEQ/L Estimat Glomerular Filtration Rate 75 ML/MIN Assessment and Plan Problem List: (1) Acute hypercapnic respiratory failure ICD Codes: J96.02 - Acute respiratory failure with hypercapnia Status: Acute (2) Acute asthma exacerbation ICD Codes: J45.901 - Unspecified asthma with (acute) exacerbation Status: Acute (3) History of pulmonary embolism ICD Codes: Z86.711 - Personal history of pulmonary embolism Status: Acute (4) Hypertension ICD Codes: I10 - Essential (primary) hypertension Status: Acute (5) Hyperlipidemia ICD Codes: E78.5 - Hyperlipidemia, unspecified Status: Chronic Assessment and Plan Very slow progress. Remains stable from cardiac standpoint, no arrhythmias. Continue therapy for asthma/COPD exacerbation, seen by Dr. Hernandez. Continue anticoagulation with Eliquis (h/o DVT/PE). Continue monitoring. Increase activity, PT. Still not ready for discharge. Problem Qualifiers (1) Acute asthma exacerbation: Qualified Codes: J45.901 - Unspecified asthma with (acute) exacerbation Adam Moody MD Nov 27, 2017 13:11
--- NOTE | 2017-11-27 18:47 | HHI.PR ---
Subjective History of Present Illness Patient still SOB / Wheezing cardiology/ Pulmonary input noted have leukocytosis will monitor. mild low sodium. Review of Systems Constitutional Constitutional: Fatigue, Weakness Throat Throat Remarks Oral thrush Pulmonary Respiratory: Coughing, Shortness of Breath, Wheezing Cardiology CV Remarks leg edema. Musculoskeletal MS Remarks Leg edema. Vitals/Results Vital Signs Vital Signs Date Time Temp Pulse Resp B/P (MAP) Pulse Ox O2 Delivery O2 Flow Rate FiO2 11/27/17 12:00 97 11/27/17 12:00 98.3 97 18 128/78 (95) 97 11/27/17 12:00 97 Room Air 11/27/17 07:37 97 11/27/17 06:57 89 11/27/17 06:57 96 Room Air 11/27/17 06:57 98.9 89 20 130/78 (95) 96 11/27/17 05:00 84 11/27/17 04:00 98.6 88 16 161/93 (115) 95 11/27/17 04:00 80 11/27/17 03:00 76 11/27/17 00:00 98.6 83 16 151/88 (109) 96 11/26/17 20:00 98.6 103 20 147/88 (107) 96 11/26/17 20:00 96 Room Air 11/26/17 19:37 96 21 CBC/BMP: 11/27/17 0602 11/27/17 0602 Lab Results Laboratory Tests Test 11/27/17 06:02 White Blood Count 16.8 TH/MM3 Red Blood Count 5.22 MIL/MM3 Hemoglobin 15.2 GM/DL Hematocrit 45.1 % Mean Corpuscular Volume 86.4 FL Mean Corpuscular Hemoglobin 29.0 PG Mean Corpuscular Hemoglobin Concent 33.6 % Red Cell Distribution Width 15.4 % Platelet Count 222 TH/MM3 Mean Platelet Volume 7.7 FL Neutrophils (%) (Auto) 88.9 % Lymphocytes (%) (Auto) 5.3 % Monocytes (%) (Auto) 5.5 % Eosinophils (%) (Auto) 0.2 % Basophils (%) (Auto) 0.1 % Neutrophils # (Auto) 14.9 TH/MM3 Lymphocytes # (Auto) 0.9 TH/MM3 Monocytes # (Auto) 0.9 TH/MM3 Eosinophils # (Auto) 0.0 TH/MM3 Basophils # (Auto) 0.0 TH/MM3 CBC Comment AUTO DIFF Differential Total Cells Counted 100 Neutrophils % (Manual) 78 % Band Neutrophils % 2 % Lymphocytes % 5 % Monocytes % 6 % Neutrophils # (Manual) 15.0 TH/MM3 Metamyelocytes 5 % Myelocytes 4 % Differential Comment FINAL DIFF MANUAL Platelet Estimate NORMAL Platelet Morphology Comment NORMAL Red Cell Morphology Comment NORMAL Blood Urea Nitrogen 19 MG/DL Creatinine 1.04 MG/DL Random Glucose 204 MG/DL Total Protein 6.2 GM/DL Albumin 3.4 GM/DL Calcium Level 8.7 MG/DL Alkaline Phosphatase 105 U/L Aspartate Amino Transf (AST/SGOT) 12 U/L Alanine Aminotransferase (ALT/SGPT) 64 U/L Total Bilirubin 0.4 MG/DL Sodium Level 135 MEQ/L Potassium Level 4.0 MEQ/L Chloride Level 98 MEQ/L Carbon Dioxide Level 24.3 MEQ/L Anion Gap 13 MEQ/L Estimat Glomerular Filtration Rate 75 ML/MIN Physical Exam General General Appearance: Well Developed, Well Nourished, No Acute Distress Eyes Eye Exam: Pupils Equal, Pupils Reactive, Sclera White, Extraocular Movement Intact Throat Throat Exam: Oral Pharynx Normal Throat Remarks Oral Thrush Neck Neck Exam: Neck Supple, Trachea Midline Pulmonary Resp Exam: Crackles, Rhonchi, Decreased Bases, Diminished Breath Sounds Resp Remarks Bilateral wheezing. Gastrointestinal/Abdomen GI Exam: Soft, Non-Tender, Bowel Sounds Present Musculoskeletal MS Exam: Joints Intact Integumentary Skin Exam: Clear, Warm, Dry, Intact Extremeties Extremities Exam: Moderate Edema Neurologic Neuro Exam: Alert, Awake, Oriented, Speech Clear, Moving All Extremities, No Focal Deficits Psychiatric Psych Exam: Appropriate Responses VTE Prophylaxis VTE Remarks Eliquis. PUD Prophylasis PUD Prophylaxis: Protonix Assessment/Plan Assessment/Plan ASSESSMENT AND PLAN: 1. This is a 52-year-old male, came to the ER, diagnosed with acute respiratory distress/acute respiratory failure, is in acute chronic obstructive pulmonary disease exacerbation. Patient was on BiPAP. Pulmonary input noted. Patient also on DuoNeb nebulization every 4 hours, Prednisone 20 mg PO BID. and also off Antibiotic. Further recommendation per pulmonary. 2. Chronic obstructive pulmonary disease exacerbation. Patient is on prednisone 20 mg po bid. and DuoNeb nebulization. 3. History of hyperlipidemia. Continue with Lipitor 20 mg p.o. daily. 4. History of gastroesophageal reflux disease. Protonix 40 mg p.o. daily. 5. History of leg edema. on Lasix 40 mg IV b.i.d. 6. History of chronic obstructive pulmonary disease. Continue home medication. 7. History of hypertension. Continue with diltiazem 360 mg p.o. daily. add clonidine 0.1 mg every 6 hrs PRN if BP above 160/90. 8. History of benign prostatic hypertrophy. Continue with Flomax 0.4 mg p.o. daily. 9. History of depression. Continue home medication. 10. Anxiety. Continue home medication. 11. Deep venous thrombosis and pulmonary embolism. Continue with Eliquis 5 mg twice a day. 12. History of Iron deficiency anemia. Continue with ferrous sulfate 325 mg p.o. b.i.d. 13. Diabetes mellitus. ADA 1800 diet CHECK Blood blood sugar. Continue with metformin 500 mg twice a day. On Insulin sliding scale. 14. Deep venous thrombosis prophylaxis. Patient is on Eliquis 5 mg twice a day. 15. Gastrointestinal prophylaxis. Protonix 40 mg p.o. daily. 16. Burning urination ...Urine analysis negative for UTI. 17. Leukocytosis on steroids will monitor. 18. Oral thrush on Nystatin. 19. Left upper extremity pain ...venous dopler shows basilic vein thrombosis no additional anticoagulation needed per hematology, IV site Changed. We are going to manage the patient on daily basis and make recommendations on daily basis. Check CBC with diff CMP in AM. possible discharge tomorrow. Discussed Condition with: Patient Myron Woodward MD Nov 27, 2017 18:47
[2017-11-27] MEDS: RESP: ALBUTEROL 1.25 MG/3 ML NEB (PRN) NEB (19:14)
[2017-11-27] MEDS ORDERED: RESP: ALBUTEROL 2.5 MG/IPRATROPIUM 0.5 MG NEB (PRN) NEB (20:30)
[2017-11-27] MEDS: MONTELUKAST SODIUM 10 MG TAB PO SCH (22:37)
[2017-11-27] MEDS: PANTOPRAZOLE SOD 40 MG DELAYED RELEASE TAB PO SCH (22:38)
[2017-11-27] MEDS: ATORVASTATIN 20 MG TAB PO SCH (22:38)
[2017-11-28] VITALS (17 sets, daily range): BP systolic 131–160; BP diastolic 82–96; PULSE 89–116; RESP 17–20; TEMP 98–98.6; O2SAT 95–100
[2017-11-28] MEDS: RESP: ALBUTEROL 2.5 MG/IPRATROPIUM 0.5 MG NEB (SCH) NEB ×3 (03:40→12:45)
[2017-11-28] MEDS: INSULIN ASPART SUPPLEMENTAL SCALE SQ SCH ×2 (09:02→13:23)
[2017-11-28] MEDS: FERROUS SULFATE 325 MG (65 MG ELEMENTAL IRON) TAB PO SCH (09:36)
[2017-11-28] MEDS: metFORMIN HCL 500 MG TAB PO SCH (09:36)
[2017-11-28] MEDS: FUROSEMIDE 40 MG/4 ML VIAL IV PUSH SCH (09:37)
[2017-11-28] MEDS: DILTIAZEM-CD 180 MG CAP ER PO SCH (09:37)
[2017-11-28] MEDS: APIXABAN 5 MG TABLET PO SCH (09:37)
[2017-11-28] MEDS: POTASSIUM CHLORIDE 20 MEQ CONTROLLED RELEASE TAB PO SCH (09:37)
[2017-11-28] MEDS: DOCUSATE SODIUM 50 MG/SENNA 8.6 MG TAB PO SCH (09:37)
[2017-11-28] MEDS: TAMSULOSIN HCL 0.4 MG CAP PO SCH (09:38)
[2017-11-28] MEDS: LORazepam 0.5 MG TAB PO SCH (09:38)
[2017-11-28] MEDS: predniSONE 20 MG TAB PO SCH (09:38)
[2017-11-28] MEDS: SODIUM CHLORIDE 0.9% FLUSH 10 ML FLUSH IV FLUSH SCH (09:38)
[2017-11-28] MEDS: BUDESONIDE-FORMOTEROL 160/4.5 MCG INHALER INH SCH (09:38)
[2017-11-28] MEDS: NYSTATIN SUSP 500,000 U/5 ML CUP SWISH-SWAL SCH ×2 (09:39→12:07)
--- NOTE | 2017-11-28 13:03 | HHI.PR ---
Subjective History of Present Illness Patient still SOB / Wheezing cardiology/ Pulmonary input noted have leukocytosis will monitor. mild low sodium. ok to discharge home today. Review of Systems Constitutional Constitutional: Fatigue, Weakness Throat Throat Remarks Oral thrush Pulmonary Respiratory: Coughing, Shortness of Breath, Wheezing Cardiology CV Remarks leg edema. Musculoskeletal MS Remarks Leg edema. Vitals/Results Vital Signs Vital Signs Date Time Temp Pulse Resp B/P (MAP) Pulse Ox O2 Delivery O2 Flow Rate FiO2 11/28/17 12:04 98.5 116 20 131/85 (100) 96 11/28/17 09:44 95 21 11/28/17 07:30 98.0 97 17 147/82 (103) 96 11/28/17 07:30 96 Room Air 11/28/17 06:59 100 11/28/17 06:00 89 11/28/17 05:00 98 11/28/17 04:03 98.0 98 20 160/96 (117) 100 11/28/17 04:00 98 11/28/17 02:00 89 11/28/17 01:00 106 11/28/17 00:00 98.6 105 20 159/90 (113) 96 11/28/17 00:00 108 11/27/17 23:00 114 11/27/17 22:00 110 11/27/17 21:00 110 11/27/17 20:00 98.5 113 20 153/93 (113) 97 11/27/17 20:00 96 Room Air 11/27/17 20:00 108 11/27/17 19:15 96 21 11/27/17 19:00 108 11/27/17 18:00 90 11/27/17 17:00 106 11/27/17 16:00 110 11/27/17 15:30 97.9 97 16 137/79 (98) 97 11/27/17 15:00 102 11/27/17 14:00 92 CBC/BMP: 11/27/17 0602 11/27/17 0602 Physical Exam General General Appearance: Well Developed, Well Nourished, No Acute Distress Eyes Eye Exam: Pupils Equal, Pupils Reactive, Sclera White, Extraocular Movement Intact Throat Throat Exam: Oral Pharynx Normal Throat Remarks Oral Thrush Neck Neck Exam: Neck Supple, Trachea Midline Pulmonary Resp Exam: Crackles, Rhonchi, Decreased Bases, Diminished Breath Sounds Resp Remarks Bilateral wheezing. Gastrointestinal/Abdomen GI Exam: Soft, Non-Tender, Bowel Sounds Present Musculoskeletal MS Exam: Joints Intact Integumentary Skin Exam: Clear, Warm, Dry, Intact Extremeties Extremities Exam: Moderate Edema Neurologic Neuro Exam: Alert, Awake, Oriented, Speech Clear, Moving All Extremities, No Focal Deficits Psychiatric Psych Exam: Appropriate Responses VTE Prophylaxis VTE Remarks Eliquis. PUD Prophylasis PUD Prophylaxis: Protonix Assessment/Plan Assessment/Plan ASSESSMENT AND PLAN: 1. This is a 52-year-old male, came to the ER, diagnosed with acute respiratory distress/acute respiratory failure, is in acute chronic obstructive pulmonary disease exacerbation. Patient was on BiPAP. Pulmonary input noted. Patient also on DuoNeb nebulization every 4 hours, Prednisone 20 mg PO BID. and also off Antibiotic. Further recommendation per pulmonary. 2. Chronic obstructive pulmonary disease exacerbation. Patient is on prednisone 20 mg po bid. and DuoNeb nebulization. 3. History of hyperlipidemia. Continue with Lipitor 20 mg p.o. daily. 4. History of gastroesophageal reflux disease. Protonix 40 mg p.o. daily. 5. History of leg edema. on Lasix 40 mg IV b.i.d. 6. History of chronic obstructive pulmonary disease. Continue home medication. 7. History of hypertension. Continue with diltiazem 360 mg p.o. daily. add clonidine 0.1 mg every 6 hrs PRN if BP above 160/90. 8. History of benign prostatic hypertrophy. Continue with Flomax 0.4 mg p.o. daily. 9. History of depression. Continue home medication. 10. Anxiety. Continue home medication. 11. Deep venous thrombosis and pulmonary embolism. Continue with Eliquis 5 mg twice a day. 12. History of Iron deficiency anemia. Continue with ferrous sulfate 325 mg p.o. b.i.d. 13. Diabetes mellitus. ADA 1800 diet CHECK Blood blood sugar. Continue with metformin 500 mg twice a day. On Insulin sliding scale. 14. Deep venous thrombosis prophylaxis. Patient is on Eliquis 5 mg twice a day. 15. Gastrointestinal prophylaxis. Protonix 40 mg p.o. daily. 16. Burning urination ...Urine analysis negative for UTI. 17. Leukocytosis on steroids will monitor. 18. Oral thrush on Nystatin. 19. Left upper extremity pain ...venous dopler shows basilic vein thrombosis no additional anticoagulation needed per hematology, IV site Changed. ok to discharge home today. f/u with PCP and Pulmonary and Cardiology 1 week. Discussed Condition with: Patient Myron Woodward MD Nov 28, 2017 13:03
--- NOTE | 2017-11-28 14:48 | MD ---
cc: Myron Woodward MD DATE OF DISCHARGE: 11/28/2017 CONDITION AT DISCHARGE: Okay to discharge the patient. Patient's condition at the time of discharge satisfactory. ACTIVITY: As tolerated. DIET: Cardiac diet. ALLERGIES: DOXYCYCLINE, MEPERIDINE, MINOCYCLINE, TETRACYCLINE, TIGECYCLINE. DISCHARGE MEDICATIONS: 1. Nystatin 5 mL swish and swallow 4 times a day. 2. Albuterol 2 puffs inhalation q. 6 hours. 3. Albuterol nebulization every 4 hours. 4. Eliquis 5 mg twice a day. 5. Atorvastatin 40 mg p.o. at bedtime. 6. Symbicort 160/4.5 two puff inhalations q. 12 hours. 5. Diltiazem 360 mg p.o. daily. 6. Ferrous sulfate 325 mg p.o. b.i.d. 7. Furosemide 40 mg one a day. 8. Lorazepam 0.5 mg twice a day p.r.n. anxiety. 9. Metformin 500 mg twice a day 10. Singulair 10 mg daily. 11. Protonix 40 mg daily. 12. Paxil 20 mg daily. 13. Potassium chloride 20 mEq p.o. b.i.d. 14. Prednisone 10 mg p.o. b.i.d. 15. Flomax 0.4 mg p.o. daily. DISCHARGE INSTRUCTIONS: The patient advised to followup with PCP, cardiology, pulmonary in 1 week. ADMITTING DIAGNOSIS: Shortness of breath secondary to acute exacerbation of chronic obstructive pulmonary disease/asthma. DISCHARGE DIAGNOSES: 1. Chronic obstructive pulmonary disease exacerbation/asthma exacerbation, improved. 2. History of chronic obstructive pulmonary disease. 3. Other comorbidities include history of hyperlipidemia, gastroesophageal reflux disease, history of leg edema, mostly right leg. Venous scan was negative for DVT. 4. History of chronic obstructive pulmonary disease. 5. History of hypertension. 6. History of benign prostatic hypertrophy. 7. History of depression. 8. History of anxiety. 9. History of iron deficiency anemia on iron sulfate. 10. Diabetes mellitus. 11. Oral thrush. The patient was started on a Nystatin. 12. Left upper extremity pain. Venous Doppler was done, shows basilic vein thrombosis. No additional anticoagulation needed per Hematology, just change the IV site, we did. HOSPITAL COURSE: This is a 52-year-old, very pleasant male having multiple hospitalization history in the past, came to the ER at [place], brought in with shortness of breath, diagnosed with acute exacerbation of chronic obstructive pulmonary disease. The patient was given DuoNeb nebulization every 4-hours, IV Solu-Medrol and also given an antibiotic. The patient was seen by pulmonologists; Dr. Bowen, Dr. Monteiro and Dr. Hernandez have seen the patient. The patient was also seen by Cardiology, Dr. Moody. The patient was also seen by Hematology, Dr. Rashid. The patient remained stable. No acute event happened. The patient had a leukocytosis during the hospital stay, most likely secondary to steroid-induced. The patient had normal hemoglobin and hematocrit. The patient had a mild hyponatremia; sodium was 135 at the time of discharge. The patient had hyperglycemia secondary to steroid-induced. The patient had a normal creatinine at 1.04. Patient's PT was 10.6, INR 1.0, aPTT 24.4. The patient's urinalysis showed a glucose of 150. The patient had a chest x-ray done, shows no acute abnormality or significant interval change. The patient had upper extremity ultrasound done, shows nonocclusive thrombus noted within the left basilic vein, proximal intravenous catheter. The patient was seen by Dr. Rashid. Recommendation is to change the IV site and no additional anticoagulation required. Lower extremity ultrasound done showed no evidence of DVT. Influenza A and B negative. Blood cultures are negative for 5 days. The patient is discharged in satisfactory condition. Further details in the medical record. Myron Woodward MD EA/ELPIDIO , 01:09 PM , 02:46 PM
--- NOTE | 2017-11-28 16:46 | PD.CARD.PN ---
Subjective Subjective Remarks Mild SOB, no CP Objective Vital Signs / I&O Vital Signs Date Time Temp Pulse Resp B/P (MAP) Pulse Ox O2 Delivery O2 Flow Rate FiO2 11/28/17 13:00 102 11/28/17 12:04 98.5 116 20 131/85 (100) 96 11/28/17 12:00 106 11/28/17 11:00 106 11/28/17 10:00 102 11/28/17 09:44 95 21 11/28/17 09:00 90 11/28/17 08:00 104 11/28/17 07:30 98.0 97 17 147/82 (103) 96 11/28/17 07:30 96 Room Air 11/28/17 06:59 100 11/28/17 06:00 89 11/28/17 05:00 98 11/28/17 04:03 98.0 98 20 160/96 (117) 100 11/28/17 04:00 98 11/28/17 02:00 89 11/28/17 01:00 106 11/28/17 00:00 98.6 105 20 159/90 (113) 96 11/28/17 00:00 108 11/27/17 23:00 114 11/27/17 22:00 110 11/27/17 21:00 110 11/27/17 20:00 98.5 113 20 153/93 (113) 97 11/27/17 20:00 96 Room Air 11/27/17 20:00 108 11/27/17 19:15 96 21 11/27/17 19:00 108 11/27/17 18:00 90 11/27/17 17:00 106 I/O 11/27/17 11/27/17 11/27/17 11/28/17 11/28/17 11/28/17 06:59 14:59 22:59 06:59 14:59 22:59 Intake Total 480 ml 1100 ml 480 ml 480 ml Output Total 800 ml 2300 ml 800 ml 650 ml Balance -320 ml -1200 ml -320 ml -170 ml Intake Oral 480 ml 1100 ml 480 ml 480 ml Output Urine Total 800 ml 2300 ml 800 ml 650 ml # Bowel Movements 1 2 1 Physical Exam GENERAL: In NAD SKIN: Warm and dry. HEAD: Normocephalic. EYES: No scleral icterus. No injection or drainage. NECK: Supple, trachea midline. No JVD or lymphadenopathy. CARDIOVASCULAR: Regular rate and rhythm without murmurs, gallops, or rubs. RESPIRATORY: Breath sounds equal bilaterally. No accessory muscle use. Diffuse wheezing GASTROINTESTINAL: Abdomen soft, non-tender, nondistended. MUSCULOSKELETAL: No cyanosis, or edema. Assessment and Plan Problem List: (1) Acute hypercapnic respiratory failure ICD Codes: J96.02 - Acute respiratory failure with hypercapnia Status: Acute (2) Acute asthma exacerbation ICD Codes: J45.901 - Unspecified asthma with (acute) exacerbation Status: Acute (3) History of pulmonary embolism ICD Codes: Z86.711 - Personal history of pulmonary embolism Status: Acute (4) Hypertension ICD Codes: I10 - Essential (primary) hypertension Status: Acute (5) Hyperlipidemia ICD Codes: E78.5 - Hyperlipidemia, unspecified Status: Chronic Assessment and Plan Remains stable from cardiac standpoint, no arrhythmias. Continue therapy for asthma/COPD exacerbation, seen by Dr. Hernandez. Continue anticoagulation with Eliquis (h/o DVT/PE). DC home. Will schedule outpt card f/u. Problem Qualifiers (1) Acute asthma exacerbation: Qualified Codes: J45.901 - Unspecified asthma with (acute) exacerbation Adam Moody MD Nov 28, 2017 16:46
== END 2017-11-28 15:04 | disposition home or self-care (01) | DRG 190 ==
LOC: NEPC 08:19 → NEDA 10:08 → NEDH 14:46 → HCIS 16:05
PROVIDERS: ADMIT Family Medicine; ATTEND Family Medicine
PROC: 5A09357 Assistance with Respiratory Ventilation, Less than 24 Consecutive Hours, Continuous Positive Airway Pressure (ICD-10-PCS; principal; 2017-11-17)
DX: J44.1 Chronic obstructive pulmonary disease with (acute) exacerbation (principal); J96.02 Acute respiratory failure with hypercapnia; B37.0 Candidal stomatitis; E11.65 Type 2 diabetes mellitus with hyperglycemia; I82.612 Acute embolism and thrombosis of superficial veins of left upper extremity; E87.1 Hypo-osmolality and hyponatremia; J45.901 Unspecified asthma with (acute) exacerbation; J20.9 Acute bronchitis, unspecified; I10 Essential (primary) hypertension; K21.9 Gastro-esophageal reflux disease without esophagitis; J44.0 Chronic obstructive pulmonary disease with (acute) lower respiratory infection; M19.90 Unspecified osteoarthritis, unspecified site; E78.00 Pure hypercholesterolemia, unspecified; E78.5 Hyperlipidemia, unspecified; R00.0 Tachycardia, unspecified; R60.0 Localized edema; N40.0 Benign prostatic hyperplasia without lower urinary tract symptoms; F41.8 Other specified anxiety disorders; D50.9 Iron deficiency anemia, unspecified; I25.2 Old myocardial infarction; Z96.641 Presence of right artificial hip joint; Z79.84 Long term (current) use of oral hypoglycemic drugs; Z79.01 Long term (current) use of anticoagulants; Z86.711 Personal history of pulmonary embolism; Z87.01 Personal history of pneumonia (recurrent); Z86.718 Personal history of other venous thrombosis and embolism; Z79.899 Other long term (current) drug therapy
CPT/HCPCS: 71045; 76937; 80053; 81001; 82550; 82552; 82948; 83735; 83880; 84484; 85007; 85025; 85027; 85610; 85730; 87040; 87804; 93005; 93970; 94002; 94640; 94664; 96374; J0456; J0692; J1815; J1940; J2930; J7050; J7512; J7613

== ENCOUNTER 2017-12-15 18:54 | Observation (INO) | payer BC ==
[~2017-12-15] VITALS: Ht 175.3 cm; Wt 110.0 kg
[~2017-12-15 18:54] MED LIST changes: +Nystatin Liq SWISH-SWAL; -OMEP40CA2 PO; +PANT40TA3 PO; +PARO20TA2 PO; -PRED50 PO
[2017-12-15 19:01] VITALS: BP 154/98; PULSE 130; RESP 30; TEMP 98.4; O2SAT 94
[2017-12-15] MEDS: RESP: ALBUTEROL 2.5 MG/IPRATROPIUM 0.5 MG NEB (SCH) INH ×2 (19:10→19:13)
[2017-12-15] MEDS ORDERED: methylPREDNISolone SOD SUCC 125 MG/2 ML VIAL IV PUSH ONE (19:15)
[2017-12-15] MEDS ORDERED: SODIUM CHLORIDE 0.9% FLUSH 10 ML FLUSH IVF PRN (19:15)
--- NOTE | 2017-12-15 19:18 | PD ---
HPI Chief Complaint: Respiratory Distress Time Seen by Provider: 19:04 Travel History International Travel<30 days: No Contact w/Intl Traveler<30days: No Traveled to known affect area: No History of Present Illness HPI 51-year-old male with history of COPD/asthma presents for evaluation of dyspnea and wheezing. Symptoms started 2 hours ago. He reports that he uses DuoNeb treatment 3 times at home with minimal relief. He now presents with severe dyspnea and wheezing. Denies chest pain, objective fevers, cough or congestion , abdominal pain. He also reports a history of pulmonary embolism on Eliquis, BPH. He has been compliant with his medications. He follows with book illustrator Dr. Hernandez. His primary care physician is Dr. Myron Woodward. [facility] Past Medical History Hx Anticoagulant Therapy: Yes (eliquis) Arthritis: Yes Asthma: Yes Autoimmune Disease: No Blood Disorders: No Anxiety: Yes Depression: No Heart Rhythm Problems: Yes (sinus tachycardia) Cancer: No Cardiovascular Problems: Yes (PT REPORTS TACHYCARDIA) High Cholesterol: Yes Chemotherapy: No Chest Pain: No Congestive Heart Failure: No COPD: Yes Cerebrovascular Accident: No Diabetes: Yes (NIDDM) Patient Takes Glucophage: Yes Diminished Hearing: No Deep Vein Thrombosis: Yes (DECEMBER 2015: RIGHT LEG WITH PULMONARY EMBOLISM X2) Endocrine: Yes Gastrointestinal Disorders: Yes (GERD) GERD: Yes Genitourinary: Yes (BPH) Headaches: No Hepatitis: No Hiatal Hernia: No Heparin Induced Thrombocytopen: No Hypertension: Yes Immune Disorder: No Implanted Vascular Access Dvce: Yes Kidney Stones: No Musculoskeletal: Yes (HIP SURGERIES, ARTHRITIS) Neurologic: No Psychiatric: Yes (ANXIETY) Reproductive: Yes (BPH) Respiratory: Yes (COPD, asthma, PE) Migraines: No Myocardial Infarction: Yes Pneumonia: Yes (NOVEMBER 2015) Radiation Therapy: No Renal Failure: No Seizures: No Sickle Cell Disease: No Sleep Apnea: No Thyroid Disease: No Ulcer: No Past Surgical History Abdominal Surgery: No AICD: No Appendectomy: Yes Arteriovenous Shunt: No Cardiac Surgery: No Endocrine Surgery: No Eye Surgery: Yes (cataract surgery, lens inplants) Genitourinary Surgery: Yes (appendectomy) Gynecologic Surgery: No Insulin Pump: No Joint Replacement: Yes (RIGHT HIP REPLACEMENT) Neurologic Surgery: No Oral Surgery: Yes (TONSILLECTOMY) Pacemaker: No Thoracic Surgery: No Tonsillectomy: Yes Other Surgery: Yes (HIPS, APPENDIX, TONSILS) Social History Alcohol Use: No Tobacco Use: No Substance Use: No Allergies-Medications (Allergen,Severity, Reaction): Coded Allergies: doxycycline (Unverified Allergy, Severe, throat swells, 12/15/17) minocycline (Unverified Allergy, Severe, throat swells, 12/15/17) tetracycline (Verified Allergy, Severe, Anaphylaxis, 12/15/17) tigecycline (Unverified Allergy, Severe, throat swells, 12/15/17) meperidine (Unverified Allergy, Intermediate, hallucinations, 12/15/17) Reported Meds & Prescriptions Reported Meds & Active Scripts Active [Nystatin Liq] 5 ML Susp 5 Ml SWISH-SWAL QID Proventil Hfa 6.7 GM Inh (Albuterol Sulfate) 90 Mcg/Act Aer 2 Puff INH Q4-6H PRN Potassium Chloride ER (Potassium Chloride) 20 Meq Tab 20 Meq PO BID Flomax (Tamsulosin HCl) 0.4 Mg Cap 0.4 Mg PO DAILY Glucophage (Metformin HCl) 500 Mg Tab 500 Mg PO BIDPC Ferosul (Ferrous Sulfate) 325 Mg Tablet 325 Mg PO BID Furosemide 40 Mg Tab 40 Mg PO DAILY Eliquis (Apixaban) 5 Mg Tab 5 Mg PO BID Ativan (Lorazepam) 0.5 Mg Tab 0.5 Mg PO BID Reported Paroxetine (Paroxetine HCl) 20 Mg Tab 20 Mg PO DAILY Pantoprazole (Pantoprazole Sodium) 40 Mg Tab 40 Mg PO DAILY Prednisone 10 Mg Tab 10 Mg PO BID Matzim [place] (Diltiazem ER 24 HR) 360 Mg Can 360 Mg PO DAILY Symbicort Inh (Budesonide/Formoterol Fumarate) 160-4.5 Mcg/Act Aero 2 Puff INH Q12HR Singulair (Montelukast Sodium) 10 Mg Tab 10 Mg PO HS Lipitor (Atorvastatin Calcium) 20 Mg Tab 40 Mg PO HS Levalbuterol Neb (Levalbuterol HCl) 1.25 Mg/3 Ml Neb 1.25 Mg NEB BID PRN Review of Systems Except as stated in HPI: all other systems reviewed are Neg Physical Exam Narrative GENERAL: This is well-developed well-nourished male who appears dyspneic on examination. SKIN: Warm and dry. HEAD: Atraumatic. Normocephalic. EYES: Pupils equal and round. No scleral icterus. No injection or drainage. ENT: No nasal bleeding or discharge. Mucous membranes pink and moist. NECK: Trachea midline. No JVD. CARDIOVASCULAR: Regular rate and rhythm. No murmur appreciated. RESPIRATORY: No accessory muscle use. Diffuse expiratory wheezing heard without a stethoscope. Poor inspiratory effort secondary to wheezing. No crackles. GASTROINTESTINAL: Abdomen soft, non-tender, nondistended. Hepatic and splenic margins not palpable. MUSCULOSKELETAL: No obvious deformities. No lower extremity edema noted. NEUROLOGICAL: Awake and alert. No obvious cranial nerve deficits. Motor grossly within normal limits. Normal speech. PSYCHIATRIC: Appropriate mood and affect; insight and judgment normal. Data Data Last Documented VS Vital Signs Date Time Temp Pulse Resp B/P (MAP) Pulse Ox O2 Delivery O2 Flow Rate FiO2 12/15/17 19:40 98 25 12/15/17 19:21 Room Air 12/15/17 19:21 2.00 12/15/17 19:01 98.4 130 30 154/98 (116) Orders Orders Complete Blood Count With Diff (12/15/17 19:08) Comprehensive Metabolic Panel (12/15/17 19:08) B-Type Natriuretic Peptide (12/15/17 19:08) Magnesium (Mg) (12/15/17 19:08) Ckmb (Isoenzyme) Profile (12/15/17 19:08) Troponin I (12/15/17 19:08) Arterial Blood Gas (Abg) (12/15/17 19:08) Iv Access Insert/Monitor (12/15/17 19:08) Electrocardiogram (12/15/17 19:08) Ecg Monitoring (12/15/17 19:08) Oximetry (12/15/17 19:08) Oxygen Administration (12/15/17 19:08) Chest, Pa & Lat (12/15/17 19:08) Sodium Chloride 0.9% Flush (Ns Flush) (12/15/17 19:15) Methylprednisolone So Succ Inj (Solumedr (12/15/17 19:15) Albuterol-Ipratropium Neb (Duoneb Neb) (12/15/17 19:15) Resp Bipap / Cpap Non Invas Vt (12/15/17 19:10) CKMB (12/15/17 19:16) CKMB% (12/15/17 19:16) Admit Order (Ed Use Only) (12/15/17 20:52) Labs Laboratory Tests Test 12/15/17 19:16 12/15/17 19:35 White Blood Count 5.0 TH/MM3 Red Blood Count 5.01 MIL/MM3 Hemoglobin 14.4 GM/DL Hematocrit 43.1 % Mean Corpuscular Volume 86.1 FL Mean Corpuscular Hemoglobin 28.8 PG Mean Corpuscular Hemoglobin Concent 33.5 % Red Cell Distribution Width 16.8 % Platelet Count 340 TH/MM3 Mean Platelet Volume 7.4 FL Neutrophils (%) (Auto) 78.6 % Lymphocytes (%) (Auto) 16.6 % Monocytes (%) (Auto) 4.4 % Eosinophils (%) (Auto) 0.0 % Basophils (%) (Auto) 0.4 % Neutrophils # (Auto) 3.9 TH/MM3 Lymphocytes # (Auto) 0.8 TH/MM3 Monocytes # (Auto) 0.2 TH/MM3 Eosinophils # (Auto) 0.0 TH/MM3 Basophils # (Auto) 0.0 TH/MM3 CBC Comment DIFF FINAL Differential Comment Blood Urea Nitrogen 13 MG/DL Creatinine 1.73 MG/DL Random Glucose 209 MG/DL Total Protein 7.2 GM/DL Albumin 4.1 GM/DL Calcium Level 8.8 MG/DL Magnesium Level 1.7 MG/DL Alkaline Phosphatase 119 U/L Aspartate Amino Transf (AST/SGOT) 30 U/L Alanine Aminotransferase (ALT/SGPT) 73 U/L Total Bilirubin 0.4 MG/DL Sodium Level 140 MEQ/L Potassium Level 4.3 MEQ/L Chloride Level 107 MEQ/L Carbon Dioxide Level 24.1 MEQ/L Anion Gap 9 MEQ/L Estimat Glomerular Filtration Rate 42 ML/MIN Total Creatine Kinase 172 U/L Creatine Kinase MB 3.5 NG/ML Troponin I LESS THAN 0.02 NG/ML B-Type Natriuretic Peptide LESS THAN 2 PG/ML Blood Gas Puncture Site LT RADIAL Blood Gas Patient Temperature 98.6 Blood Gas HCO3 24 mmol/L Blood Gas Base Excess 0.5 mmol/L Blood Gas Oxygen Saturation 94 % Arterial Blood pH 7.46 Arterial Blood Partial Pressure CO2 34 mmHg Arterial Blood Partial Pressure O2 76 mmHG Arterial Blood Oxygen Content 18.3 Vol % Arterial Blood Carboxyhemoglobin 1.0 % Arterial Blood Methemoglobin 0.9 % Blood Gas Hemoglobin 13.9 G/DL Oxygen Delivery Device NASAL CANNULA Blood Gas Liter Flow 2 L/M MDM Medical Decision Making Medical Screen Exam Complete: Yes Emergency Medical Condition: Yes Medical Record Reviewed: Yes Differential Diagnosis COPD exacerbation, spontaneous pneumothorax, pulmonary embolism, CHF, pleural effusion, pericardial effusion, pneumonia Narrative Course The patient was placed on ECG monitoring pulse oximetry. A 12-lead EKG was obtained revealing sinus tachycardia with a rate of 116. DuoNeb treatment, Solu -Medrol has been ordered. ABG has been ordered. The patient will be put on BiPAP. ABG on 2 L oxygen reveals pH of 7.45, PCO2 of 34.4, PO2 75.8. Chest x-ray reveals mild basilar atelectasis. CBC reveals a WBC count of 5, 78.6% neutrophils CMP reveals a creatinine of 1.76, GFR 42, glucose 209 Cardiac enzymes are negative BNP is less than 2. At this point in time the plan is to admit the patient for observation for COPD exacerbation. He is agreeable. The BiPAP was weaned off with improvement in his symptoms. Diagnosis Primary Impression: COPD exacerbation Admitting Information Admitting Physician Requests: Observation Guilherme Carrion Dec 15, 2017 19:18
[2017-12-15 19:21] VITALS: O2SAT 95
[2017-12-15 19:38] LABS: AUTOMATED NEUTROPHIL # 3.9 TH/MM3 (1.8-7.7); BASOPHIL % 0.4 % (0.0-2.0); HEMATOCRIT 43.1 % (39.0-51.0); HEMOGLOBIN 14.4 GM/DL (13.0-17.0); LYMPH % 16.6 % (9.0-44.0); LYMPHOCYTE # 0.8 TH/MM3 (1.0-4.8); MEAN CELL VOLUME 86.1 FL (80.0-100.0); MEAN CORPUSCULAR HEMOGLOBIN 28.8 PG (27.0-34.0); MEAN CORPUSCULAR HGB CONC 33.5 % (32.0-36.0); MEAN PLATELET VOLUME 7.4 FL (7.0-11.0); MONO % 4.4 % (0.0-8.0); MONOCYTE # 0.2 TH/MM3 (0-0.9); NEUT % 78.6 % (16.0-70.0); PLATELET COUNT 340 TH/MM3 (150-450); RED BLOOD COUNT 5.01 MIL/MM3 (4.50-5.90); RED CELL DISTRIBUTION WIDTH 16.8 % (11.6-17.2)
[2017-12-15 19:40] VITALS: O2SAT 98
[2017-12-15 19:49] LABS: ALBUMIN 4.1 GM/DL (3.4-5.0); AST (GOT) 30 U/L (15-37); BICARBONATE 24.1 MEQ/L (21.0-32.0); BLOOD UREA NITROGEN 13 MG/DL (7-18); CALCIUM 8.8 MG/DL (8.5-10.1); CHLORIDE 107 MEQ/L (98-107); CREATININE 1.73 MG/DL (0.60-1.30); GLOMERULAR FILTRATION RATE 42 ML/MIN (>89); GLUCOSE,RANDOM 209 MG/DL (74-106); MAGNESIUM 1.7 MG/DL (1.5-2.5); SODIUM (NA) 140 MEQ/L (136-145)
[2017-12-15 19:50] LABS: ALT (GPT) 73 U/L (12-78)
[2017-12-15 19:54] LABS: ALKALINE PHOSPHATASE 119 U/L (45-117); TOTAL BILIRUBIN ADULT 0.4 MG/DL (0.2-1.0); TOTAL PROTEIN 7.2 GM/DL (6.4-8.2); TROPONIN I LESS THAN 0.02 NG/ML (0.02-0.05)
--- NOTE | 2017-12-15 20:22 | RADRPT ---
EXAM DATE/TIME: 12/15/2017 19:59 [place] COMPARISON: CHEST PA & LAT, February 15, 2017, 23:18. INDICATIONS : Short of breath. MEDICAL HISTORY : Chronic obstructive pulmonary disease. asthma. SURGICAL HISTORY : None. ENCOUNTER: Initial ACUITY: 1 day PAIN SCORE: 0/10 LOCATION: Bilateral chest FINDINGS: PA and lateral views of the chest demonstrate mild basilar opacity most likely due to atelectasis. No effusion. No pneumothorax. Heart size upper limits normal. CONCLUSION: 1. Mild basilar atelectasis. No effusion or pneumothorax. Morales Nunez MD on December 15, 2017 at 20:18 Board Certified Radiologist. This report was verified electronically.
--- NOTE | 2017-12-15 20:35 | PD ---
Data Data Last Documented VS Vital Signs Date Time Temp Pulse Resp B/P (MAP) Pulse Ox O2 Delivery O2 Flow Rate FiO2 12/15/17 19:40 98 25 12/15/17 19:21 Room Air 12/15/17 19:21 2.00 12/15/17 19:01 98.4 130 30 154/98 (116) Orders Orders Complete Blood Count With Diff (12/15/17 19:08) Comprehensive Metabolic Panel (12/15/17 19:08) B-Type Natriuretic Peptide (12/15/17 19:08) Magnesium (Mg) (12/15/17 19:08) Ckmb (Isoenzyme) Profile (12/15/17 19:08) Troponin I (12/15/17:08) Arterial Blood Gas (Abg) (12/15/17 19:08) Iv Access Insert/Monitor (12/15/17:08) Electrocardiogram (12/15/17:08) Ecg Monitoring (12/15/17 19:08) Oximetry (12/15/17 19:08) Oxygen Administration (12/15/17 19:08) Chest, Pa & Lat (12/15/17 19:08) Sodium Chloride 0.9% Flush (Ns Flush) (12/15/17 19:15) Methylprednisolone So Succ Inj (Solumedr (12/15/17 19:15) Albuterol-Ipratropium Neb (Duoneb Neb) (12/15/17 19:15) Resp Bipap / Cpap Non Invas Vt (12/15/17 19:10) CKMB (12/15/17 19:16) CKMB% (12/15/17 19:16) Admit Order (Ed Use Only) (12/15/17 20:52) Labs Laboratory Tests Test 12/15/17 19:16 12/15/17 19:35 White Blood Count 5.0 TH/MM3 Red Blood Count 5.01 MIL/MM3 Hemoglobin 14.4 GM/DL Hematocrit 43.1 % Mean Corpuscular Volume 86.1 FL Mean Corpuscular Hemoglobin 28.8 PG Mean Corpuscular Hemoglobin Concent 33.5 % Red Cell Distribution Width 16.8 % Platelet Count 340 TH/MM3 Mean Platelet Volume 7.4 FL Neutrophils (%) (Auto) 78.6 % Lymphocytes (%) (Auto) 16.6 % Monocytes (%) (Auto) 4.4 % Eosinophils (%) (Auto) 0.0 % Basophils (%) (Auto) 0.4 % Neutrophils # (Auto) 3.9 TH/MM3 Lymphocytes # (Auto) 0.8 TH/MM3 Monocytes # (Auto) 0.2 TH/MM3 Eosinophils # (Auto) 0.0 TH/MM3 Basophils # (Auto) 0.0 TH/MM3 CBC Comment DIFF FINAL Differential Comment Blood Urea Nitrogen 13 MG/DL Creatinine 1.73 MG/DL Random Glucose 209 MG/DL Total Protein 7.2 GM/DL Albumin 4.1 GM/DL Calcium Level 8.8 MG/DL Magnesium Level 1.7 MG/DL Alkaline Phosphatase 119 U/L Aspartate Amino Transf (AST/SGOT) 30 U/L Alanine Aminotransferase (ALT/SGPT) 73 U/L Total Bilirubin 0.4 MG/DL Sodium Level 140 MEQ/L Potassium Level 4.3 MEQ/L Chloride Level 107 MEQ/L Carbon Dioxide Level 24.1 MEQ/L Anion Gap 9 MEQ/L Estimat Glomerular Filtration Rate 42 ML/MIN Total Creatine Kinase 172 U/L Creatine Kinase MB 3.5 NG/ML Troponin I LESS THAN 0.02 NG/ML B-Type Natriuretic Peptide LESS THAN 2 PG/ML Blood Gas Puncture Site LT RADIAL Blood Gas Patient Temperature 98.6 Blood Gas HCO3 24 mmol/L Blood Gas Base Excess 0.5 mmol/L Blood Gas Oxygen Saturation 94 % Arterial Blood pH 7.46 Arterial Blood Partial Pressure CO2 34 mmHg Arterial Blood Partial Pressure O2 76 mmHG Arterial Blood Oxygen Content 18.3 Vol % Arterial Blood Carboxyhemoglobin 1.0 % Arterial Blood Methemoglobin 0.9 % Blood Gas Hemoglobin 13.9 G/DL Oxygen Delivery Device NASAL CANNULA Blood Gas Liter Flow 2 L/M [facility] Medical Record Reviewed: Yes Supervised Visit with MELVINA: Yes Narrative Course I, Dr. Mccollum, have reviewed the advance practice practitioner's documentation and am in agreement, met with the patient face to face, made the diagnosis, and the medical decision making was done by me. The patient was initially evaluated by Guilherme. Please see their complete history and physical. *My assessment and Findings: The patient presents with shortness of breath with wheezing that began earlier today. During the course of the patient's emergency department visit, the patient's history, examination, and differential diagnosis were reviewed with the patient. The patient was placed on a cardiac exercise specialist with oximetry and frequent blood pressure monitoring. The patient had IV access obtained and blood work sent for analysis. The patient was initially provided duo nebs 3, Solu-Medrol 125 mg IV, the patient was briefly placed on BiPAP. The patient's laboratory studies were reviewed and remarkable for a white count of 5, hemoglobin 14.4, platelets 340 with neutrophils 78.6, CMP is remarkable for creatinine 1.73, glucose 209, alk phos 119, cardiac enzymes within normal limits with a BNP that is less than 2, ABG is unremarkable Radiology studies were reviewed and remarkable for a chest x-ray that shows mild basilar atelectasis, no effusion or pneumothorax. The patient will be admitted to the hospital for observation regarding his COPD exacerbation. Diagnosis Primary Impression: COPD exacerbation Amanda Mccollum MD Dec 15, 2017 20:35
[2017-12-15 20:55] VITALS: O2SAT 96
[2017-12-15] MEDS ORDERED: ACETAMINOPHEN 325 MG TAB PO PRN (21:45)
[2017-12-15] MEDS ORDERED: ONDANSETRON HCL 4 MG/2 ML VIAL IVP PRN (21:45)
[2017-12-15] MEDS: SODIUM CHLOR 0.9% 1000 ML INJ 1,000 ML IV SCH (21:55)
--- NOTE | 2017-12-15 23:03 | HHI.HP ---
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 The patient reports approximately 2 hours prior to his arrival at the emergency department his shortness of breath became severe. He had audible wheezing. He reports that he attempted his nebulizer at home 3 however this did not help. He is on 5 mg of prednisone daily for his COPD. Denies chest pain. No abdominal pain. No nausea/vomiting/diarrhea. No lateralizing signs/symptoms. No weakness. Review of Systems Except as stated in HPI: all other systems reviewed are Neg Past Family Social History Past Medical History Hyperlipidemia Diabetes mellitus Hypertension COPD History of DVT/PE Past Surgical History I&D right hip Right hip replacement Appendectomy Tonsillectomy Bilateral cataracts Reported Medications Reported Meds & Active Scripts Active [Nystatin Liq] 5 ML Susp 5 Ml SWISH-SWAL QID Proventil Hfa 6.7 GM Inh (Albuterol Sulfate) 90 Mcg/Act Aer 2 Puff INH Q4-6H PRN Potassium Chloride ER (Potassium Chloride) 20 Meq Tab 20 Meq PO BID Flomax (Tamsulosin HCl) 0.4 Mg Cap 0.4 Mg PO DAILY Glucophage (Metformin HCl) 500 Mg Tab 500 Mg PO BIDPC Ferosul (Ferrous Sulfate) 325 Mg Tablet 325 Mg PO BID Furosemide 40 Mg Tab 40 Mg PO DAILY Eliquis (Apixaban) 5 Mg Tab 5 Mg PO BID Ativan (Lorazepam) 0.5 Mg Tab 0.5 Mg PO BID Reported Paroxetine (Paroxetine HCl) 20 Mg Tab 20 Mg PO DAILY Pantoprazole (Pantoprazole Sodium) 40 Mg Tab 40 Mg PO DAILY Prednisone 10 Mg Tab 10 Mg PO BID Matzim LA (Diltiazem ER 24 HR) 360 Mg Can 360 Mg PO DAILY Symbicort Inh (Budesonide/Formoterol Fumarate) 160-4.5 Mcg/Act Aero 2 Puff INH Q12HR Singulair (Montelukast Sodium) 10 Mg Tab 10 Mg PO HS Lipitor (Atorvastatin Calcium) 20 Mg Tab 40 Mg PO HS Levalbuterol Neb (Levalbuterol HCl) 1.25 Mg/3 Ml Neb 1.25 Mg NEB BID PRN Allergies: Coded Allergies: doxycycline (Unverified Allergy, Severe, throat swells, 12/15/17) minocycline (Unverified Allergy, Severe, throat swells, 12/15/17) tetracycline (Verified Allergy, Severe, Anaphylaxis, 12/15/17) tigecycline (Unverified Allergy, Severe, throat swells, 12/15/17) meperidine (Unverified Allergy, Intermediate, hallucinations, 12/15/17) Family History Both parents with coronary artery disease Social History Occasional alcohol. Negative for tobacco and illicit drugs. Physical Exam Vital Signs Vital Signs Date Time Temp Pulse Resp B/P (MAP) Pulse Ox O2 Delivery O2 Flow Rate FiO2 12/15/17 20:55 96 Nasal Cannula 2.00 12/15/17 19:40 98 25 12/15/17 19:21 94 Room Air 12/15/17 19:21 95 Nasal Cannula 2.00 12/15/17 19:01 98.4 130 30 154/98 (116) 94 Physical Exam GENERAL: Obese, male sitting up in bed SKIN: No rashes, ecchymoses or lesions. Cool and dry. HEAD: Atraumatic. Normocephalic. No temporal or scalp tenderness. EYES: Pupils equal round and reactive. Extraocular motions intact. No scleral icterus. No injection or drainage. ENT: Nose without bleeding, purulent drainage or septal hematoma. Throat without erythema, tonsillar hypertrophy or exudate. Uvula midline. Airway patent. NECK: Trachea midline. No JVD or lymphadenopathy. Supple, nontender, no meningeal signs. CARDIOVASCULAR: Regular rate and rhythm without murmurs, gallops, or rubs. RESPIRATORY: Poor air movement. Bilateral wheezes throughout. GASTROINTESTINAL: Abdomen soft, non-tender, nondistended. No hepato-splenomegaly , or palpable masses. No guarding. MUSCULOSKELETAL: Extremities without clubbing, cyanosis, or edema. No joint tenderness, effusion, or edema noted. No calf tenderness. NEUROLOGICAL: Awake and alert. Cranial nerves II through XII intact. Motor and sensory grossly within normal limits. Normal speech. Laboratory Laboratory Tests Test 12/15/17 19:16 12/15/17 19:35 White Blood Count 5.0 Red Blood Count 5.01 Hemoglobin 14.4 Hematocrit 43.1 Mean Corpuscular Volume 86.1 Mean Corpuscular Hemoglobin 28.8 Mean Corpuscular Hemoglobin Concent 33.5 Red Cell Distribution Width 16.8 Platelet Count 340 Mean Platelet Volume 7.4 Neutrophils (%) (Auto) 78.6 Lymphocytes (%) (Auto) 16.6 Monocytes (%) (Auto) 4.4 Eosinophils (%) (Auto) 0.0 Basophils (%) (Auto) 0.4 Neutrophils # (Auto) 3.9 Lymphocytes # (Auto) 0.8 Monocytes # (Auto) 0.2 Eosinophils # (Auto) 0.0 Basophils # (Auto) 0.0 CBC Comment DIFF FINAL Differential Comment Blood Urea Nitrogen 13 Creatinine 1.73 Random Glucose 209 Total Protein 7.2 Albumin 4.1 Calcium Level 8.8 Magnesium Level 1.7 Alkaline Phosphatase 119 Aspartate Amino Transf (AST/SGOT) 30 Alanine Aminotransferase (ALT/SGPT) 73 Total Bilirubin 0.4 Sodium Level 140 Potassium Level 4.3 Chloride Level 107 Carbon Dioxide Level 24.1 Anion Gap 9 Estimat Glomerular Filtration Rate 42 Total Creatine Kinase 172 Creatine Kinase MB 3.5 Troponin I LESS THAN 0.02 B-Type Natriuretic Peptide LESS THAN 2 Blood Gas Puncture Site LT RADIAL Blood Gas Patient Temperature 98.6 Blood Gas HCO3 24 Blood Gas Base Excess 0.5 Blood Gas Oxygen Saturation 94 Arterial Blood pH 7.46 Arterial Blood Partial Pressure CO2 34 Arterial Blood Partial Pressure O2 76 Arterial Blood Oxygen Content 18.3 Arterial Blood Carboxyhemoglobin 1.0 Arterial Blood Methemoglobin 0.9 Blood Gas Hemoglobin 13.9 Oxygen Delivery Device NASAL CANNULA Blood Gas Liter Flow 2 Result Diagram: 12/15/17191512/15/171915 Caprini VTE Risk Assessment Caprini VTE Risk Assessment: No/Low Risk (score <= 1) Caprini Risk Assessment Model Point Value = 1 Point Value = 2 Point Value = 3 Point Value = 5 Age 41-60 Minor surgery BMI > 25 kg/m2 Swollen legs Varicose veins or History of unexplained or recurrent spontaneous Oral contraceptives or hormone replacement Sepsis (< 1 month) Serious lung disease, including pneumonia (< 1 month) Abnormal pulmonary function Acute myocardial infarction Congestive heart failure (< 1 month) History of inflammatory bowel disease Medical patient at bed rest Age 61-74 Arthroscopic surgery Major open surgery (> 45 min) Laparoscopic surgery (> 45 min) Malignancy Confined to bed (> 72 hours) Immobilizing plaster cast Central venous access Age >= 75 History of VTE Family history of VTE Factor V Leiden Prothrombin [id number] Lupus anticoagulant Anticardiolipin antibodies Elevated serum homocysteine Heparin-induced thrombocytopenia Other congenital or acquired thrombophilia Stroke (< 1 month) Elective arthroplasty Hip, pelvis, or leg fracture Acute spinal cord injury (< 1 month) Prophylaxis Regimen Total Risk Factor Score Risk Level Prophylaxis Regimen 0-1 Low Early ambulation 2 Moderate Order ONE of the following: *Sequential Compression Device (SCD) *Heparin 5000 units SQ BID 3-4 Higher Order ONE of the following medications: *Heparin 5000 units SQ TID *Enoxaparin/Lovenox 40 mg SQ daily (WT < 150 kg, CrCl > 30 mL/min) *Enoxaparin/Lovenox 30 mg SQ daily (WT < 150 kg, CrCl > 10-29 mL/min) *Enoxaparin/Lovenox 30 mg SQ BID (WT < 150 kg, CrCl > 30 mL/min) AND/OR *Sequential Compression Device (SCD) 5 or more Highest Order ONE of the following medications: *Heparin 5000 units SQ TID (Preferred with Epidurals) *Enoxaparin/Lovenox 40 mg SQ daily (WT < 150 kg, CrCl > 30 mL/min) *Enoxaparin/Lovenox 30 mg SQ daily (WT < 150 kg, CrCl > 10-29 mL/min) *Enoxaparin/Lovenox 30 mg SQ BID (WT < 150 kg, CrCl > 30 mL/min) AND *Sequential Compression Device (SCD) Assessment and Plan Assessment and Plan Assessment/plan: 1. COPD exacerbation Patient successfully weaned from BiPAP in the emergency department ABG 7.46/34/76/24 Supplemental oxygen as needed DuoNeb's Solu-Medrol 2. History of DVT/PE Continue home look was once medication reconciliation complete 3. Hypertension/hyperlipidemia Continue home medicatons 4. Diabetes mellitus Sliding scale insulin Holding home metformin Monitor blood glucose FEN Heart healthy, diabetic diet Electrolytes: Monitor and replete when necessary Monica Valencia MD Dec 15, 2017 23:03
[2017-12-15] MEDS ORDERED: DEXTROSE 50% IN WATER 50 ML VIAL(D50) IV PUSH PRN (23:15)
[2017-12-15] MEDS ORDERED: GLUCAGON 1 MG/ML VIAL OTHER PRN (23:15)
[2017-12-15] MEDS: RESP: ALBUTEROL 2.5 MG/IPRATROPIUM 0.5 MG NEB (SCH) NEB (23:16)
[2017-12-15 23:17] VITALS: O2SAT 98
[2017-12-16] VITALS (8 sets, daily range): BP systolic 146–167; BP diastolic 84–97; PULSE 97–193; RESP 18–22; TEMP 96.2–97.8; O2SAT 95–98
[2017-12-16] MEDS: methylPREDNISolone SOD SUCC 40 MG/1 ML VIAL IV PUSH SCH ×4 (02:00→21:19)
[2017-12-16] MEDS: RESP: ALBUTEROL 2.5 MG/IPRATROPIUM 0.5 MG NEB (SCH) NEB ×6 (03:22→23:17)
--- NOTE | 2017-12-16 04:49 | EKG ---
Date Performed: 12/15/2017 Time Performed: 19:11:43 PTAGE: 52 years EKG: SINUS TACHYCARDIA POSSIBLE LEFT ATRIAL ENLARGEMENT ABNORMAL RHYTHM ECG Compared to prior el ectrocardiogram, rate has increased NO PREVIOUS TRACING DOCTOR: Hieu Styles Interpretating Date/Time 12/16/2017 04:49:00
[2017-12-16 06:39] LABS: AUTOMATED NEUTROPHIL # 5.8 TH/MM3 (1.8-7.7); BASOPHIL % 0.2 % (0.0-2.0); HEMATOCRIT 40.4 % (39.0-51.0); HEMOGLOBIN 13.3 GM/DL (13.0-17.0); LYMPH % 8.8 % (9.0-44.0); LYMPHOCYTE # 0.6 TH/MM3 (1.0-4.8); MEAN CELL VOLUME 86.6 FL (80.0-100.0); MEAN CORPUSCULAR HEMOGLOBIN 28.6 PG (27.0-34.0); MEAN PLATELET VOLUME 7.4 FL (7.0-11.0); MONO % 1.2 % (0.0-8.0); MONOCYTE # 0.1 TH/MM3 (0-0.9); NEUT % 89.8 % (16.0-70.0); PLATELET COUNT 303 TH/MM3 (150-450); RED BLOOD COUNT 4.66 MIL/MM3 (4.50-5.90); RED CELL DISTRIBUTION WIDTH 16.6 % (11.6-17.2); WHITE BLOOD COUNT 6.5 TH/MM3 (4.0-11.0)
[2017-12-16 06:56] LABS: BICARBONATE 23.2 MEQ/L (21.0-32.0); CREATININE 1.08 MG/DL (0.60-1.30)
[2017-12-16 08:00] LABS: ACANTHOCYTES OCC (NORMAL); OVALOCYTES 1+ (NORMAL)
[2017-12-16] MEDS: INSULIN ASPART SUPPLEMENTAL SCALE SQ SCH ×4 (09:35→23:34)
--- NOTE | 2017-12-16 10:11 | HHI.PR ---
Subjective History of Present Illness Patient have Shortness of Breath and wheezing have mild labored breathing pulmonary consulted Review of Systems Constitutional Constitutional: Fatigue, Weakness Pulmonary Respiratory: Coughing, Shortness of Breath, Wheezing GI/Abdomen GI/Abdomen Remarks Distended. Vitals/Results Vital Signs Vital Signs Date Time Temp Pulse Resp B/P (MAP) Pulse Ox O2 Delivery O2 Flow Rate FiO2 12/16/17 08:00 96.8 101 21 167/97 (120) 98 12/16/17 07:41 98 Nasal Cannula 2.00 12/16/17 01:23 96.2 108 20 156/85 (108) 96 Room Air 12/15/17 23:17 98 Nasal Cannula 1.00 12/15/17 20:55 96 Nasal Cannula 2.00 12/15/17 19:40 98 25 12/15/17 19:21 94 Room Air 12/15/17 19:21 95 Nasal Cannula 2.00 12/15/17 19:01 98.4 130 30 154/98 (116) 94 CBC/BMP: 12/16/17 0422 12/16/17 0422 Lab Results Laboratory Tests Test 12/15/17 19:16 12/15/17 19:35 12/16/17 04:22 White Blood Count 5.0 TH/MM3 6.5 TH/MM3 Red Blood Count 5.01 MIL/MM3 4.66 MIL/MM3 Hemoglobin 14.4 GM/DL 13.3 GM/DL Hematocrit 43.1 % 40.4 % Mean Corpuscular Volume 86.1 FL 86.6 FL Mean Corpuscular Hemoglobin 28.8 PG 28.6 PG Mean Corpuscular Hemoglobin Concent 33.5 % 33.0 % Red Cell Distribution Width 16.8 % 16.6 % Platelet Count 340 TH/MM3 303 TH/MM3 Mean Platelet Volume 7.4 FL 7.4 FL Neutrophils (%) (Auto) 78.6 % 89.8 % Lymphocytes (%) (Auto) 16.6 % 8.8 % Monocytes (%) (Auto) 4.4 % 1.2 % Eosinophils (%) (Auto) 0.0 % 0.0 % Basophils (%) (Auto) 0.4 % 0.2 % Neutrophils # (Auto) 3.9 TH/MM3 5.8 TH/MM3 Lymphocytes # (Auto) 0.8 TH/MM3 0.6 TH/MM3 Monocytes # (Auto) 0.2 TH/MM3 0.1 TH/MM3 Eosinophils # (Auto) 0.0 TH/MM3 0.0 TH/MM3 Basophils # (Auto) 0.0 TH/MM3 0.0 TH/MM3 CBC Comment DIFF FINAL AUTO DIFF Differential Comment AUTO DIFF CONFIRMED Blood Urea Nitrogen 13 MG/DL 16 MG/DL Creatinine 1.73 MG/DL 1.08 MG/DL Random Glucose 209 MG/DL 214 MG/DL Total Protein 7.2 GM/DL Albumin 4.1 GM/DL Calcium Level 8.8 MG/DL 9.0 MG/DL Magnesium Level 1.7 MG/DL Alkaline Phosphatase 119 U/L Aspartate Amino Transf (AST/SGOT) 30 U/L Alanine Aminotransferase (ALT/SGPT) 73 U/L Total Bilirubin 0.4 MG/DL Sodium Level 140 MEQ/L 141 MEQ/L Potassium Level 4.3 MEQ/L 3.6 MEQ/L Chloride Level 107 MEQ/L 105 MEQ/L Carbon Dioxide Level 24.1 MEQ/L 23.2 MEQ/L Anion Gap 9 MEQ/L 13 MEQ/L Estimat Glomerular Filtration Rate 42 ML/MIN 72 ML/MIN Total Creatine Kinase 172 U/L Creatine Kinase MB 3.5 NG/ML Troponin I LESS THAN 0.02 NG/ML B-Type Natriuretic Peptide LESS THAN 2 PG/ML Blood Gas Puncture Site LT RADIAL Blood Gas Patient Temperature 98.6 Blood Gas HCO3 24 mmol/L Blood Gas Base Excess 0.5 mmol/L Blood Gas Oxygen Saturation 94 % Arterial Blood pH 7.46 Arterial Blood Partial Pressure CO2 34 mmHg Arterial Blood Partial Pressure O2 76 mmHG Arterial Blood Oxygen Content 18.3 Vol % Arterial Blood Carboxyhemoglobin 1.0 % Arterial Blood Methemoglobin 0.9 % Blood Gas Hemoglobin 13.9 G/DL Oxygen Delivery Device NASAL CANNULA Blood Gas Liter Flow 2 L/M Ovalocytes 1+ Acanthocytes OCC Physical Exam General General Appearance: Well Developed, Well Nourished Appearance Remarks Mild respiratory distress. Eyes Eye Exam: Pupils Equal, Pupils Reactive Throat Throat Exam: Oral Mucosa Ogilvie & Moist Throat Remarks Oral Thrush. Pulmonary Resp Exam: Crackles, Rhonchi, Diminished Breath Sounds, Labored Resp Remarks Bilateral wheezing Cardiology CV Exam: Regular, Normal Sinus Rhythm Gastrointestinal/Abdomen GI Exam: Soft, Non-Tender, Bowel Sounds Present, Distended Musculoskeletal MS Exam: Joints Intact Integumentary Skin Exam: Clear, Warm, Dry, Intact Extremeties Extremities Exam: Trace Edema Neurologic Neuro Exam: Alert, Awake, Oriented, Moving All Extremities, No Focal Deficits Psychiatric Psych Exam: Appropriate Responses VTE Prophylaxis VTE Remarks Eliquis. PUD Prophylasis PUD Prophylaxis: Protonix Assessment/Plan Assessment/Plan Assessment and Plan 1. COPD exacerbation /Acute respiratory failure Patient successfully weaned from BiPAP in the emergency department ABG 7.46/34/76/24 Supplemental oxygen as needed DuoNeb's Solu-Medrol Pulmonary consulted 2. History of DVT/PE Continue eliquis. 3. Hypertension/hyperlipidemia Continue home medicine. 4. Diabetes mellitus Sliding scale insulin metformin Monitor blood glucose FEN Heart healthy, diabetic diet Hypertension on Cardiozem Depression on Paxil. Anxiety continue home medicine Lorazepam. Right Leg swelling recent venous doppler negative for DVT. BPH on Flomax. Hyperlipidemia on Lipitor 40 mg PO Daily. Oral Thrush on Nystatin. Iron deficiency Anemia. Leg edema on Lasix. DVT Prophylaxis ...on Eliquis. Discussed Condition with: Patient Myron Woodward MD Dec 16, 2017 10:11
[2017-12-16] MEDS: SODIUM CHLORIDE 0.9% FLUSH 10 ML FLUSH IV FLUSH SCH ×2 (12:51→21:20)
[2017-12-16] MEDS: SODIUM CHLOR 0.9% 1000 ML INJ 1,000 ML IV SCH (12:56)
[2017-12-16] MEDS ORDERED: ALBUTEROL SULFATE 90 MCG/ACT HFA 8 GM INHALER INH PRN (16:15)
[2017-12-16] MEDS: NYSTATIN SUSP 500,000 U/5 ML CUP SWISH-SWAL SCH ×2 (17:56→21:19)
[2017-12-16] MEDS: FUROSEMIDE 40 MG TAB PO SCH (17:57)
[2017-12-16] MEDS: DILTIAZEM-CD 180 MG CAP ER PO SCH (17:57)
[2017-12-16] MEDS: PANTOPRAZOLE SOD 40 MG DELAYED RELEASE TAB PO SCH (17:57)
[2017-12-16] MEDS: metFORMIN HCL 500 MG TAB PO SCH (17:57)
[2017-12-16] MEDS: PARoxetine HCL 20 MG TAB PO SCH (17:57)
[2017-12-16] MEDS: TAMSULOSIN HCL 0.4 MG CAP PO SCH (17:57)
[2017-12-16] MEDS: FERROUS SULFATE 325 MG (65 MG ELEMENTAL IRON) TAB PO SCH (21:19)
[2017-12-16] MEDS: LORazepam 0.5 MG TAB PO SCH (21:19)
[2017-12-16] MEDS: MONTELUKAST SODIUM 10 MG TAB PO SCH (21:19)
[2017-12-16] MEDS: ATORVASTATIN 20 MG TAB PO SCH (21:20)
[2017-12-16] MEDS: APIXABAN 5 MG TABLET PO SCH (21:20)
[2017-12-16] MEDS: POTASSIUM CHLORIDE 20 MEQ CONTROLLED RELEASE TAB PO SCH (21:20)
[2017-12-16] MEDS: BUDESONIDE-FORMOTEROL 160/4.5 MCG INHALER INH SCH (23:34)
[2017-12-17] VITALS (12 sets, daily range): BP systolic 113–162; BP diastolic 67–92; PULSE 78–103; RESP 18–20; TEMP 97.5–98.6; O2SAT 94–97
[2017-12-17] MEDS: methylPREDNISolone SOD SUCC 40 MG/1 ML VIAL IV PUSH SCH ×4 (03:18→20:31)
[2017-12-17] MEDS: RESP: ALBUTEROL 2.5 MG/IPRATROPIUM 0.5 MG NEB (SCH) NEB ×6 (03:33→23:21)
--- NOTE | 2017-12-17 08:03 | MB ---
cc: Mary Hernandez MD DATE: 12/16/2017 REASON FOR CONSULTATION: COPD exacerbation. HISTORY OF PRESENT ILLNESS: Mr. Link is a 52-year-old male with a known history of COPD, asthma component, history of hypertension, hyperlipidemia and diabetes mellitus. Has history of DVT and PE in the past. Septic right hip treated surgically, with significant improvement. The patient is admitted with increasing shortness of breath, chest wheeze. Attempted bronchodilator therapy at home without improvement, came to the emergency room. Initially treated with oxygen therapy, BiPAP therapy with improvement, now off BiPAP. He denies history of fever, chills, hemoptysis. PAST MEDICAL HISTORY: COPD of severe degree, hypertension, hyperlipidemia, DVT and PE. PAST SURGICAL HISTORY: Previous right hip surgery and replacement, previous appendectomy, tonsillectomy and bilateral cataract surgery. FAMILY HISTORY: Noncontributory. SOCIAL HISTORY: Does not smoke, does not drink. No TB no industrial exposure. MEDICATIONS: Include Eliquis, Lipitor. At home, he uses Symbicort and albuterol as needed and albuterol by nebulizer, Singulair 10 mg daily, now on intravenous Solu-Medrol, metformin, diltiazem, Lasix, pantoprazole, paroxetine, Flomax, nebulized albuterol and ipratropium. REVIEW OF SYSTEMS: A 12-point review of systems as per HPI and past history, otherwise negative. IMAGING: Chest x-ray with mild atelectatic change at the bases, otherwise unremarkable. LABORATORY DATA: White count 6.5, hemoglobin 13, hematocrit 40, platelets 303,000. Sodium 141, potassium 3.6, BUN 16, creatinine 1.0. Arterial blood gas 12/15/2017 pH 7.46, pCO2 34, pO2 of 76, on 2 liters oxygen nasal cannula. PHYSICAL EXAMINATION: GENERAL: The patient is alert. VITAL SIGNS: Temperature 97, pulse 90, respiration 20, blood pressure 146/92, oxygen saturation 95% on 2 liters O2 nasal cannula. HEENT: Unremarkable. Eyes without icterus. NECK: Without adenopathy, thyroid enlargement. Central trachea. CHEST: Scattered end expiratory wheeze bilaterally. CARDIAC: PMI distant. S1, S2 audible. No murmur or rub. ABDOMEN: Lax, bowel sounds audible. EXTREMITIES: No clubbing, cyanosis or edema. SKIN: Normal, no lymphadenopathy. IMPRESSION: 1. Chronic obstructive pulmonary disease in exacerbation. 2. Diabetes mellitus. 3. Hypertension. 4. Hyperlipidemia. 5. Diabetes mellitus. 6. Deep venous thrombosis, pulmonary embolism, on Eliquis. PLAN: The patient will be maintained on oxygen therapy as needed. Bronchodilator therapy has been initiated appropriately, so the patient will be followed closely and once improved will be changed to oral therapy. I do thank you for asking me to partake in Mr. Link's care. Mary Hernandez MD WWW/MOIRA , 07:00 PM , 07:18 PM
[2017-12-17 08:35] LABS: AUTOMATED NEUTROPHIL # 10.4 TH/MM3 (1.8-7.7); BASOPHIL % 0.1 % (0.0-2.0); HEMATOCRIT 40.3 % (39.0-51.0); HEMOGLOBIN 13.4 GM/DL (13.0-17.0); LYMPH % 7.5 % (9.0-44.0); LYMPHOCYTE # 0.9 TH/MM3 (1.0-4.8); MEAN CELL VOLUME 86.1 FL (80.0-100.0); MEAN CORPUSCULAR HEMOGLOBIN 28.7 PG (27.0-34.0); MEAN CORPUSCULAR HGB CONC 33.3 % (32.0-36.0); MONO % 3.8 % (0.0-8.0); MONOCYTE # 0.4 TH/MM3 (0-0.9); NEUT % 88.6 % (16.0-70.0); PLATELET COUNT 313 TH/MM3 (150-450); RED BLOOD COUNT 4.67 MIL/MM3 (4.50-5.90); RED CELL DISTRIBUTION WIDTH 16.6 % (11.6-17.2); WHITE BLOOD COUNT 11.7 TH/MM3 (4.0-11.0)
[2017-12-17 09:00] LABS: AST (GOT) 11 U/L (15-37); BICARBONATE 18.9 MEQ/L (21.0-32.0); BLOOD UREA NITROGEN 14 MG/DL (7-18); CHLORIDE 106 MEQ/L (98-107); CREATININE 1.09 MG/DL (0.60-1.30); GLOMERULAR FILTRATION RATE 71 ML/MIN (>89); GLUCOSE,RANDOM 250 MG/DL (74-106); SODIUM (NA) 140 MEQ/L (136-145)
[2017-12-17 09:01] LABS: ALT (GPT) 56 U/L (12-78)
[2017-12-17 09:03] LABS: ALKALINE PHOSPHATASE 97 U/L (45-117); TOTAL BILIRUBIN ADULT 0.4 MG/DL (0.2-1.0); TOTAL PROTEIN 6.8 GM/DL (6.4-8.2)
[2017-12-17] MEDS: INSULIN ASPART SUPPLEMENTAL SCALE SQ SCH ×4 (09:07→20:33)
[2017-12-17] MEDS: BUDESONIDE-FORMOTEROL 160/4.5 MCG INHALER INH SCH ×2 (09:08→20:31)
[2017-12-17] MEDS: SODIUM CHLORIDE 0.9% FLUSH 10 ML FLUSH IV FLUSH SCH ×2 (09:09→20:32)
[2017-12-17] MEDS: APIXABAN 5 MG TABLET PO SCH ×2 (09:09→20:32)
[2017-12-17] MEDS: DILTIAZEM-CD 180 MG CAP ER PO SCH (09:09)
[2017-12-17] MEDS: LORazepam 0.5 MG TAB PO SCH ×2 (09:09→20:32)
[2017-12-17] MEDS: FERROUS SULFATE 325 MG (65 MG ELEMENTAL IRON) TAB PO SCH ×2 (09:09→20:32)
[2017-12-17 09:10] LABS: BANDS 7 % (0-6); LYMPHOCYTES 6 % (9-44); MONOCYTES 3 % (0-8); MYELOCYTES 1 % (0-0); NEUTROPHIL # MANUAL DIFF 10.6 TH/MM3 (1.8-7.7); POLYS (SEG NEUTROPHILS) 83 % (16-70)
[2017-12-17] MEDS: TAMSULOSIN HCL 0.4 MG CAP PO SCH (09:10)
[2017-12-17] MEDS: metFORMIN HCL 500 MG TAB PO SCH ×2 (09:10→18:38)
[2017-12-17] MEDS: FUROSEMIDE 40 MG TAB PO SCH (09:10)
[2017-12-17] MEDS: POTASSIUM CHLORIDE 20 MEQ CONTROLLED RELEASE TAB PO SCH ×2 (09:10→20:32)
[2017-12-17 09:11] LABS: ACANTHOCYTES OCC (NORMAL); OVALOCYTES 1+ (NORMAL)
[2017-12-17] MEDS: PANTOPRAZOLE SOD 40 MG DELAYED RELEASE TAB PO SCH (09:11)
[2017-12-17] MEDS: NYSTATIN SUSP 500,000 U/5 ML CUP SWISH-SWAL SCH ×4 (09:11→20:32)
[2017-12-17] MEDS: PARoxetine HCL 20 MG TAB PO SCH (09:11)
--- NOTE | 2017-12-17 10:22 | HHI.PR ---
Subjective History of Present Illness Patient have Shortness of Breath and wheezing have mild labored breathing pulmonary input noted Review of Systems Throat Throat Remarks Oral thrush Pulmonary Respiratory: Coughing, Shortness of Breath, Wheezing Musculoskeletal MS Remarks leg edema. Vitals/Results Vital Signs Vital Signs Date Time Temp Pulse Resp B/P (MAP) Pulse Ox O2 Delivery O2 Flow Rate FiO2 12/17/17 08:01 97.5 103 20 151/92 (111) 95 12/17/17 07:25 97 21 12/17/17 04:41 97.8 98 18 162/86 (111) 94 12/17/17 01:01 97.8 96 18 156/88 (110) 94 12/16/17 21:50 97.8 99 18 151/84 (106) 96 12/16/17 19:29 98 1.00 12/16/17 15:30 97.4 97 20 150/91 (110) 95 12/16/17 13:24 97.5 193 22 146/90 (108) 97 12/16/17 12:00 97.8 100 22 157/97 (117) 96 CBC/BMP: 12/17/17 0817 12/17/17 0817 Lab Results Laboratory Tests Test 12/17/17 08:17 White Blood Count 11.7 TH/MM3 Red Blood Count 4.67 MIL/MM3 Hemoglobin 13.4 GM/DL Hematocrit 40.3 % Mean Corpuscular Volume 86.1 FL Mean Corpuscular Hemoglobin 28.7 PG Mean Corpuscular Hemoglobin Concent 33.3 % Red Cell Distribution Width 16.6 % Platelet Count 313 TH/MM3 Mean Platelet Volume 7.0 FL Neutrophils (%) (Auto) 88.6 % Lymphocytes (%) (Auto) 7.5 % Monocytes (%) (Auto) 3.8 % Eosinophils (%) (Auto) 0.0 % Basophils (%) (Auto) 0.1 % Neutrophils # (Auto) 10.4 TH/MM3 Lymphocytes # (Auto) 0.9 TH/MM3 Monocytes # (Auto) 0.4 TH/MM3 Eosinophils # (Auto) 0.0 TH/MM3 Basophils # (Auto) 0.0 TH/MM3 CBC Comment AUTO DIFF Differential Total Cells Counted 100 Neutrophils % (Manual) 83 % Band Neutrophils % 7 % Lymphocytes % 6 % Monocytes % 3 % Neutrophils # (Manual) 10.6 TH/MM3 Myelocytes 1 % Differential Comment FINAL DIFF MANUAL Platelet Estimate NORMAL Platelet Morphology Comment NORMAL Ovalocytes 1+ Acanthocytes OCC Blood Urea Nitrogen 14 MG/DL Creatinine 1.09 MG/DL Random Glucose 250 MG/DL Total Protein 6.8 GM/DL Albumin 4.0 GM/DL Calcium Level 9.0 MG/DL Alkaline Phosphatase 97 U/L Aspartate Amino Transf (AST/SGOT) 11 U/L Alanine Aminotransferase (ALT/SGPT) 56 U/L Total Bilirubin 0.4 MG/DL Sodium Level 140 MEQ/L Potassium Level 3.1 MEQ/L Chloride Level 106 MEQ/L Carbon Dioxide Level 18.9 MEQ/L Anion Gap 15 MEQ/L Estimat Glomerular Filtration Rate 71 ML/MIN Physical Exam General Appearance Remarks Mild respiratory distress. Eyes Eye Exam: Pupils Equal, Pupils Reactive, Sclera White, Extraocular Movement Intact Throat Throat Remarks Ortal thrush. Neck Neck Exam: Neck Supple, Trachea Midline Pulmonary Resp Exam: Decreased Bases, Diminished Breath Sounds Resp Remarks Bilateral wheezing. Cardiology CV Exam: Regular, Good Perfusion Gastrointestinal/Abdomen GI Exam: Soft, Non-Tender, Bowel Sounds Present, Distended Musculoskeletal MS Exam: Joints Intact, Normal Gait, Normal Tone Integumentary Skin Exam: Clear, Warm, Dry Extremeties Extremities Exam: Trace Edema, Pitting Edema Neurologic Neuro Exam: Alert, Awake, Oriented, Moving All Extremities, No Focal Deficits VTE Prophylaxis VTE Remarks Eliquis. Assessment/Plan Assessment/Plan Assessment and Plan 1. COPD exacerbation /Acute respiratory failure Patient successfully weaned from BiPAP in the emergency department ABG 7.46/34/76/24 Supplemental oxygen as needed DuoNeb's Solu-Medrol Pulmonary consulted 2. History of DVT/PE Continue eliquis. 3. Hypertension/hyperlipidemia Continue home medicine. 4. Diabetes mellitus Sliding scale insulin metformin Monitor blood glucose FEN Heart healthy, diabetic diet Hypertension on Cardiozem Depression on Paxil. Anxiety continue home medicine Lorazepam. Right Leg swelling recent venous doppler negative for DVT. BPH on Flomax. Hyperlipidemia on Lipitor 40 mg PO Daily. Oral Thrush on Nystatin. Iron deficiency Anemia. Leg edema on Lasix. DVT Prophylaxis ...on Eliquis. Check CBC with diff and CMP in AM. Discussed Condition with: Patient Myron Woodward MD Dec 17, 2017 10:22
--- NOTE | 2017-12-17 18:57 | HHI.PR ---
Subjective Remarks impression less sob still wheezing abdomen distended Objective Vital Signs Date Time Temp Pulse Resp B/P (MAP) Pulse Ox O2 Delivery O2 Flow Rate FiO2 12/17/17 16:35 87 12/17/17 15:58 97.5 87 20 140/80 (100) 95 12/17/17 12:04 97.5 90 20 127/72 (90) 96 12/17/17 12:00 85 12/17/17 08:01 97.5 103 20 151/92 (111) 95 12/17/17 07:25 97 21 12/17/17 07:10 85 12/17/17 04:41 97.8 98 18 162/86 (111) 94 12/17/17 01:01 97.8 96 18 156/88 (110) 94 12/16/17 21:50 97.8 99 18 151/84 (106) 96 12/16/17 19:29 98 1.00 I/O 12/16/17 12/16/17 12/16/17 12/17/17 12/17/17 12/17/17 07:00 15:00 23:00 07:00 15:00 23:00 Intake Total 329 ml Balance 329 ml Intake IV Total 329 ml # Voids 5 5 Result Diagram: 12/17/1781612/17/17816 Objective Remarks GENERAL: SKIN: Warm and dry. HEAD: Atraumatic. Normocephalic. EYES: Pupils equal and round. No scleral icterus. No injection or drainage. ENT: No nasal bleeding or discharge. Mucous membranes pink and moist. NECK: Trachea midline. No JVD. CARDIOVASCULAR: Regular rate and rhythm. RESPIRATORY: No accessory muscle use. wheezing to auscultation. Breath sounds equal bilaterally. GASTROINTESTINAL: Abdomen soft, non-tender, nondistended. Hepatic and splenic margins not palpable. MUSCULOSKELETAL: Extremities without clubbing, cyanosis, or edema. No obvious deformities. NEUROLOGICAL: Awake and alert. No obvious cranial nerve deficits. Motor grossly within normal limits. Five out of 5 muscle strength in the arms and legs. Normal speech. PSYCHIATRIC: Appropriate mood and affect; insight and judgment normal. Medications and IVs GENERAL: SKIN: Warm and dry. HEAD: Atraumatic. Normocephalic. EYES: Pupils equal and round. No scleral icterus. No injection or drainage. ENT: No nasal bleeding or discharge. Mucous membranes pink and moist. NECK: Trachea midline. No JVD. CARDIOVASCULAR: Regular rate and rhythm. RESPIRATORY: No accessory muscle use. Clear to auscultation. Breath sounds equal bilaterally. GASTROINTESTINAL: Abdomen soft, non-tender, nondistended. Hepatic and splenic margins not palpable. markedly distended MUSCULOSKELETAL: Extremities without clubbing, cyanosis, or edema. No obvious deformities. NEUROLOGICAL: Awake and alert. No obvious cranial nerve deficits. Motor grossly within normal limits. Five out of 5 muscle strength in the arms and legs. Normal speech. PSYCHIATRIC: Appropriate mood and affect; insight and judgment normal. Assessment and Plan Assessment and Plan asthma exacerbation DVT/PE DM ABDOMINAL DISTENTION PLAN O2 NEEDED BRONCHODILATOR THERAPY CT ABDOMEN Mary,Mary Dutton MD Dec 17, 2017 18:57
[2017-12-17] MEDS ORDERED: DIATRIZOATE MEGLUM/DIATRIZOATE SOD 9 ML CUP PO ONE (19:30)
[2017-12-17] MEDS: MONTELUKAST SODIUM 10 MG TAB PO SCH (20:32)
[2017-12-17] MEDS: ATORVASTATIN 20 MG TAB PO SCH (20:32)
--- NOTE | 2017-12-17 23:54 | RADRPT ---
EXAM DATE/TIME: 12/17/2017 23:36 [place] COMPARISON: CT ABDOMEN & PELVIS W/O CONTRAST, November 12, 2016, 8:59. INDICATIONS : Abdominal pain. ORAL CONTRAST: No oral contrast ingested. RADIATION DOSE: 16.03 CTDIvol (mGy) MEDICAL HISTORY : Cardiovascular disease. Chronic obstructive pulmonary disease. Diabetes mellitus type 2. SURGICAL HISTORY : Appendectomy. ENCOUNTER: Initial ACUITY: 1 day PAIN SCALE: 5/10 LOCATION: abdomen TECHNIQUE: Volumetric scanning of the abdomen and pelvis was performed. Using automated exposure control and ad justment of the mA and/or kV according to patient size, radiation dose was kept as low as reasonably achievable to obtain optimal diagnostic quality images. DICOM format image data is available electro nically for review and comparison. FINDINGS: LOWER LUNGS: Right basilar scarring. LIVER: Homogeneous density without lesion. There is no dilation of the biliary tree. No calcified gallston es. SPLEEN: Normal size without lesion. PANCREAS: Within normal limits. KIDNEYS: Normal in size and shape. There is no mass, stone, or hydronephrosis. ADRENAL GLANDS: Within normal limits. VASCULAR: There is no aortic aneurysm. BOWEL/MESENTERY: The stomach, small bowel, and colon demonstrate no acute abnormality. There is no free intraperitone al air or fluid. ABDOMINAL WALL: By containing umbilical hernia. RETROPERITONEUM: There is no lymphadenopathy. BLADDER: No wall thickening or mass. REPRODUCTIVE: Within normal limits. INGUINAL: There is no lymphadenopathy or hernia. MUSCULOSKELETAL: Right hip prosthesis. CONCLUSION: 1. No acute inflammatory process. 2. No renal calculi or hydronephrosis. Davion Carranza MD on December 17, 2017 at 23:47 Board Certified Radiologist. This report was verified electronically.
[2017-12-18] VITALS (8 sets, daily range): BP systolic 123–164; BP diastolic 68–94; PULSE 78–98; RESP 17–20; TEMP 97–98; O2SAT 93–97
[2017-12-18] MEDS: methylPREDNISolone SOD SUCC 40 MG/1 ML VIAL IV PUSH SCH ×4 (02:34→22:09)
[2017-12-18] MEDS: RESP: ALBUTEROL 2.5 MG/IPRATROPIUM 0.5 MG NEB (SCH) NEB ×6 (03:08→23:23)
[2017-12-18 07:34] LABS: AUTOMATED NEUTROPHIL # 9.2 TH/MM3 (1.8-7.7); BASOPHIL % 0.3 % (0.0-2.0); HEMATOCRIT 38.2 % (39.0-51.0); HEMOGLOBIN 12.9 GM/DL (13.0-17.0); LYMPH % 6.1 % (9.0-44.0); LYMPHOCYTE # 0.6 TH/MM3 (1.0-4.8); MEAN CELL VOLUME 85.3 FL (80.0-100.0); MEAN CORPUSCULAR HEMOGLOBIN 28.7 PG (27.0-34.0); MEAN CORPUSCULAR HGB CONC 33.7 % (32.0-36.0); MEAN PLATELET VOLUME 7.2 FL (7.0-11.0); MONO % 4.6 % (0.0-8.0); MONOCYTE # 0.5 TH/MM3 (0-0.9); PLATELET COUNT 296 TH/MM3 (150-450); RED BLOOD COUNT 4.49 MIL/MM3 (4.50-5.90); RED CELL DISTRIBUTION WIDTH 16.6 % (11.6-17.2); WHITE BLOOD COUNT 10.3 TH/MM3 (4.0-11.0)
[2017-12-18 07:45] LABS: ALBUMIN 3.4 GM/DL (3.4-5.0); ALKALINE PHOSPHATASE 87 U/L (45-117); ALT (GPT) 65 U/L (12-78); AST (GOT) 24 U/L (15-37); BICARBONATE 28.2 MEQ/L (21.0-32.0); BLOOD UREA NITROGEN 15 MG/DL (7-18); CALCIUM 9.1 MG/DL (8.5-10.1); CHLORIDE 104 MEQ/L (98-107); CREATININE 0.92 MG/DL (0.60-1.30); GLOMERULAR FILTRATION RATE 86 ML/MIN (>89); GLUCOSE,RANDOM 221 MG/DL (74-106); SODIUM (NA) 140 MEQ/L (136-145); TOTAL BILIRUBIN ADULT 0.4 MG/DL (0.2-1.0)
[2017-12-18] MEDS: FUROSEMIDE 40 MG TAB PO SCH (09:00)
[2017-12-18] MEDS: SODIUM CHLORIDE 0.9% FLUSH 10 ML FLUSH IV FLUSH SCH ×2 (09:00→22:10)
[2017-12-18] MEDS: BUDESONIDE-FORMOTEROL 160/4.5 MCG INHALER INH SCH ×2 (09:51→22:10)
[2017-12-18] MEDS: INSULIN ASPART SUPPLEMENTAL SCALE SQ SCH ×4 (09:55→23:02)
[2017-12-18] MEDS: metFORMIN HCL 500 MG TAB PO SCH ×2 (09:58→18:33)
[2017-12-18] MEDS: TAMSULOSIN HCL 0.4 MG CAP PO SCH (09:58)
[2017-12-18] MEDS: PANTOPRAZOLE SOD 40 MG DELAYED RELEASE TAB PO SCH (09:58)
[2017-12-18] MEDS: DILTIAZEM-CD 180 MG CAP ER PO SCH (09:58)
[2017-12-18] MEDS: POTASSIUM CHLORIDE 20 MEQ CONTROLLED RELEASE TAB PO SCH ×2 (09:58→22:23)
[2017-12-18] MEDS: LORazepam 0.5 MG TAB PO SCH ×2 (09:59→22:10)
[2017-12-18] MEDS: NYSTATIN SUSP 500,000 U/5 ML CUP SWISH-SWAL SCH ×4 (09:59→22:23)
[2017-12-18] MEDS: FERROUS SULFATE 325 MG (65 MG ELEMENTAL IRON) TAB PO SCH ×2 (09:59→22:11)
[2017-12-18] MEDS: PARoxetine HCL 20 MG TAB PO SCH (09:59)
[2017-12-18] MEDS: APIXABAN 5 MG TABLET PO SCH ×2 (09:59→22:10)
--- NOTE | 2017-12-18 10:20 | HHI.PR ---
Subjective History of Present Illness Patient have Shortness of Breath and wheezing have mild labored breathing have low potassium will replace. Review of Systems Constitutional Constitutional: Fatigue, Weakness Throat Throat Remarks Ortal thrush. Pulmonary Respiratory: Coughing, Shortness of Breath, Wheezing Musculoskeletal MS Remarks leg edema. Vitals/Results Vital Signs Vital Signs Date Time Temp Pulse Resp B/P (MAP) Pulse Ox O2 Delivery O2 Flow Rate FiO2 12/18/17 08:21 97.4 91 19 139/83 (101) 94 12/18/17 04:15 97.9 98 17 139/83 (101) 93 12/18/17 00:33 98.0 84 18 123/71 (88) 94 12/17/17 23:00 78 12/17/17 21:16 98.6 83 18 113/67 (82) 95 12/17/17 19:38 96 Nasal Cannula 2.00 12/17/17 16:35 87 12/17/17 15:58 97.5 87 20 140/80 (100) 95 12/17/17 12:04 97.5 90 20 127/72 (90) 96 12/17/17 12:00 85 CBC/BMP: 12/18/17 0640 12/18/17 0640 Lab Results Laboratory Tests Test 12/18/17 06:40 White Blood Count 10.3 TH/MM3 Red Blood Count 4.49 MIL/MM3 Hemoglobin 12.9 GM/DL Hematocrit 38.2 % Mean Corpuscular Volume 85.3 FL Mean Corpuscular Hemoglobin 28.7 PG Mean Corpuscular Hemoglobin Concent 33.7 % Red Cell Distribution Width 16.6 % Platelet Count 296 TH/MM3 Mean Platelet Volume 7.2 FL Neutrophils (%) (Auto) 89.0 % Lymphocytes (%) (Auto) 6.1 % Monocytes (%) (Auto) 4.6 % Eosinophils (%) (Auto) 0.0 % Basophils (%) (Auto) 0.3 % Neutrophils # (Auto) 9.2 TH/MM3 Lymphocytes # (Auto) 0.6 TH/MM3 Monocytes # (Auto) 0.5 TH/MM3 Eosinophils # (Auto) 0.0 TH/MM3 Basophils # (Auto) 0.0 TH/MM3 CBC Comment AUTO DIFF Differential Comment AUTO DIFF CONFIRMED Blood Urea Nitrogen 15 MG/DL Creatinine 0.92 MG/DL Random Glucose 221 MG/DL Total Protein 6.0 GM/DL Albumin 3.4 GM/DL Calcium Level 9.1 MG/DL Alkaline Phosphatase 87 U/L Aspartate Amino Transf (AST/SGOT) 24 U/L Alanine Aminotransferase (ALT/SGPT) 65 U/L Total Bilirubin 0.4 MG/DL Sodium Level 140 MEQ/L Potassium Level 3.7 MEQ/L Chloride Level 104 MEQ/L Carbon Dioxide Level 28.2 MEQ/L Anion Gap 8 MEQ/L Estimat Glomerular Filtration Rate 86 ML/MIN Physical Exam General Appearance Remarks Mild respiratory distress. Eyes Eye Exam: Pupils Equal, Pupils Reactive, Sclera White, Extraocular Movement Intact Throat Throat Remarks Oral Thrush. Neck Neck Exam: Neck Supple, Trachea Midline Pulmonary Resp Exam: Rhonchi, Decreased Bases, Diminished Breath Sounds Resp Remarks Bilateral wheezing. Cardiology CV Exam: Regular, Normal Sinus Rhythm Gastrointestinal/Abdomen GI Exam: Soft, Non-Tender, Bowel Sounds Present, Distended Musculoskeletal MS Exam: Joints Intact, Normal Gait Integumentary Skin Exam: Clear, Dry, Intact Extremeties Extremities Exam: Trace Edema, Pitting Edema Neurologic Neuro Exam: Alert, Awake, Oriented, Moving All Extremities, No Focal Deficits VTE Prophylaxis VTE Remarks Eliquis. Assessment/Plan Assessment/Plan Assessment and Plan 1. COPD exacerbation /Acute respiratory failure Patient successfully weaned from BiPAP in the emergency department ABG 7.46/34/76/24 Supplemental oxygen as needed DuoNeb's Solu-Medrol Pulmonary input noted. 2. History of DVT/PE Continue eliquis. 3. Hypertension/hyperlipidemia Continue home medicine. 4. Diabetes mellitus Sliding scale insulin metformin Monitor blood glucose FEN Heart healthy, diabetic diet Hypertension on Cardiozem Depression on Paxil. Anxiety continue home medicine Lorazepam. Right Leg swelling recent venous doppler negative for DVT. BPH on Flomax. Hyperlipidemia on Lipitor 40 mg PO Daily. Oral Thrush on Nystatin. Iron deficiency Anemia. Leg edema on Lasix. DVT Prophylaxis ...on Eliquis. Check CBC with diff CMP in am. Discussed Condition with: Patient Myron Woodward MD Dec 18, 2017 10:20
--- NOTE | 2017-12-18 15:29 | HHI.PR ---
Subjective Remarks impression less sob still wheezing abdomen CT benign Objective Vital Signs Date Time Temp Pulse Resp B/P (MAP) Pulse Ox O2 Delivery O2 Flow Rate FiO2 12/18/17 11:41 97.0 87 20 164/94 (117) 96 12/18/17 08:21 97.4 91 19 139/83 (101) 94 12/18/17 08:00 78 12/18/17 04:15 97.9 98 17 139/83 (101) 93 12/18/17 00:33 98.0 84 18 123/71 (88) 94 12/17/17 23:00 78 12/17/17 21:16 98.6 83 18 113/67 (82) 95 12/17/17 19:38 96 Nasal Cannula 2.00 12/17/17 16:35 87 12/17/17 15:58 97.5 87 20 140/80 (100) 95 I/O 12/17/17 12/17/17 12/17/17 12/18/17 12/18/17 12/18/17 07:00 15:00 23:00 07:00 15:00 23:00 # Voids 5 Result Diagram: 12/18/17 0640 12/18/17 0640 Objective Remarks GENERAL: SKIN: Warm and dry. HEAD: Atraumatic. Normocephalic. EYES: Pupils equal and round. No scleral icterus. No injection or drainage. ENT: No nasal bleeding or discharge. Mucous membranes pink and moist. NECK: Trachea midline. No JVD. CARDIOVASCULAR: Regular rate and rhythm. RESPIRATORY: No accessory muscle use. wheezing to auscultation. Breath sounds equal bilaterally. GASTROINTESTINAL: Abdomen soft, non-tender, nondistended. Hepatic and splenic margins not palpable. MUSCULOSKELETAL: Extremities without clubbing, cyanosis, or edema. No obvious deformities. NEUROLOGICAL: Awake and alert. No obvious cranial nerve deficits. Motor grossly within normal limits. Five out of 5 muscle strength in the arms and legs. Normal speech. PSYCHIATRIC: Appropriate mood and affect; insight and judgment normal. Assessment and Plan Assessment and Plan asthma exacerbation DVT/PE DM ABDOMINAL DISTENTION PLAN O2 NEEDED BRONCHODILATOR THERAPY increase activity Mary Hernandez MD Dec 18, 2017 15:29
[2017-12-18] MEDS: ATORVASTATIN 20 MG TAB PO SCH (22:11)
[2017-12-18] MEDS: MONTELUKAST SODIUM 10 MG TAB PO SCH (22:24)
[2017-12-19] VITALS (10 sets, daily range): BP systolic 114–160; BP diastolic 56–94; PULSE 80–113; RESP 17–20; TEMP 96–98.6; O2SAT 93–97
[2017-12-19] MEDS: methylPREDNISolone SOD SUCC 40 MG/1 ML VIAL IV PUSH SCH ×4 (02:48→21:02)
[2017-12-19] MEDS: RESP: ALBUTEROL 2.5 MG/IPRATROPIUM 0.5 MG NEB (SCH) NEB ×5 (03:13→19:31)
[2017-12-19] MEDS: BUDESONIDE-FORMOTEROL 160/4.5 MCG INHALER INH SCH ×2 (09:53→21:02)
[2017-12-19] MEDS: SODIUM CHLORIDE 0.9% FLUSH 10 ML FLUSH IV FLUSH SCH ×2 (09:54→21:03)
[2017-12-19] MEDS: INSULIN ASPART SUPPLEMENTAL SCALE SQ SCH ×4 (09:54→22:59)
[2017-12-19] MEDS: FUROSEMIDE 40 MG TAB PO SCH (09:55)
[2017-12-19] MEDS: APIXABAN 5 MG TABLET PO SCH ×2 (09:55→21:04)
[2017-12-19] MEDS: metFORMIN HCL 500 MG TAB PO SCH ×2 (09:55→18:36)
[2017-12-19] MEDS: LORazepam 0.5 MG TAB PO SCH ×2 (09:55→21:04)
[2017-12-19] MEDS: PANTOPRAZOLE SOD 40 MG DELAYED RELEASE TAB PO SCH (09:55)
[2017-12-19] MEDS: NYSTATIN SUSP 500,000 U/5 ML CUP SWISH-SWAL SCH ×4 (09:55→21:18)
[2017-12-19] MEDS: POTASSIUM CHLORIDE 20 MEQ CONTROLLED RELEASE TAB PO SCH ×2 (09:55→21:18)
[2017-12-19] MEDS: DILTIAZEM-CD 180 MG CAP ER PO SCH (09:56)
[2017-12-19] MEDS: TAMSULOSIN HCL 0.4 MG CAP PO SCH (09:56)
[2017-12-19] MEDS: PARoxetine HCL 20 MG TAB PO SCH (09:56)
[2017-12-19] MEDS: FERROUS SULFATE 325 MG (65 MG ELEMENTAL IRON) TAB PO SCH ×2 (09:56→21:04)
[2017-12-19 10:07] LABS: ALBUMIN 3.6 GM/DL (3.4-5.0); AST (GOT) 33 U/L (15-37); BICARBONATE 25.5 MEQ/L (21.0-32.0); BLOOD UREA NITROGEN 16 MG/DL (7-18); CALCIUM 8.9 MG/DL (8.5-10.1); CHLORIDE 100 MEQ/L (98-107); CREATININE 1.03 MG/DL (0.60-1.30); GLOMERULAR FILTRATION RATE 76 ML/MIN (>89); GLUCOSE,RANDOM 243 MG/DL (74-106); SODIUM (NA) 138 MEQ/L (136-145)
[2017-12-19 10:08] LABS: ALT (GPT) 88 U/L (12-78)
[2017-12-19 10:10] LABS: AUTOMATED NEUTROPHIL # 9.5 TH/MM3 (1.8-7.7); BASOPHIL % 0.2 % (0.0-2.0); HEMATOCRIT 40.1 % (39.0-51.0); HEMOGLOBIN 13.7 GM/DL (13.0-17.0); LYMPH % 7.3 % (9.0-44.0); LYMPHOCYTE # 0.8 TH/MM3 (1.0-4.8); MEAN CORPUSCULAR HEMOGLOBIN 28.6 PG (27.0-34.0); MEAN CORPUSCULAR HGB CONC 34.1 % (32.0-36.0); MEAN PLATELET VOLUME 7.3 FL (7.0-11.0); MONO % 4.6 % (0.0-8.0); MONOCYTE # 0.5 TH/MM3 (0-0.9); NEUT % 87.9 % (16.0-70.0); PLATELET COUNT 308 TH/MM3 (150-450); RED BLOOD COUNT 4.78 MIL/MM3 (4.50-5.90); RED CELL DISTRIBUTION WIDTH 16.2 % (11.6-17.2); WHITE BLOOD COUNT 10.9 TH/MM3 (4.0-11.0)
[2017-12-19 10:11] LABS: ALKALINE PHOSPHATASE 90 U/L (45-117); TOTAL BILIRUBIN ADULT 0.5 MG/DL (0.2-1.0); TOTAL PROTEIN 6.3 GM/DL (6.4-8.2)
[2017-12-19 11:30] LABS: BANDS 3 % (0-6); LYMPHOCYTES 10 % (9-44); MONOCYTES 1 % (0-8); MYELOCYTES 2 % (0-0); NEUTROPHIL # MANUAL DIFF 9.7 TH/MM3 (1.8-7.7); POLYS (SEG NEUTROPHILS) 84 % (16-70)
--- NOTE | 2017-12-19 11:44 | HHI.PR ---
Subjective History of Present Illness Patient have Shortness of Breath and wheezing have mild labored breathing have low potassium will replace diarrhea better C- Diff negative Review of Systems Constitutional Constitutional: Fatigue, Weakness Throat Throat Remarks Oral thrush. Pulmonary Respiratory: Coughing, Shortness of Breath, Wheezing GI/Abdomen GI/Abdominal Exam: Diarrhea Musculoskeletal MS Remarks Leg edema. Vitals/Results Vital Signs Vital Signs Date Time Temp Pulse Resp B/P (MAP) Pulse Ox O2 Delivery O2 Flow Rate FiO2 12/19/17 08:09 98.6 80 20 160/92 (114) 96 12/19/17 07:45 97 21 12/19/17 04:00 96.0 94 17 131/78 (95) 93 12/19/17 00:15 93 12/19/17 00:00 97.8 98 19 154/89 (110) 94 12/18/17 20:18 97.9 97 20 137/76 (96) 96 12/18/17 19:16 97 21 12/18/17 16:21 97.5 93 20 129/68 (88) 96 CBC/BMP: 12/19/17 0822 12/19/17 0822 Lab Results Laboratory Tests Test 12/19/17 08:22 White Blood Count 10.9 TH/MM3 Red Blood Count 4.78 MIL/MM3 Hemoglobin 13.7 GM/DL Hematocrit 40.1 % Mean Corpuscular Volume 84.0 FL Mean Corpuscular Hemoglobin 28.6 PG Mean Corpuscular Hemoglobin Concent 34.1 % Red Cell Distribution Width 16.2 % Platelet Count 308 TH/MM3 Mean Platelet Volume 7.3 FL Neutrophils (%) (Auto) 87.9 % Lymphocytes (%) (Auto) 7.3 % Monocytes (%) (Auto) 4.6 % Eosinophils (%) (Auto) 0.0 % Basophils (%) (Auto) 0.2 % Neutrophils # (Auto) 9.5 TH/MM3 Lymphocytes # (Auto) 0.8 TH/MM3 Monocytes # (Auto) 0.5 TH/MM3 Eosinophils # (Auto) 0.0 TH/MM3 Basophils # (Auto) 0.0 TH/MM3 CBC Comment AUTO DIFF Differential Total Cells Counted 100 Neutrophils % (Manual) 84 % Band Neutrophils % 3 % Lymphocytes % 10 % Monocytes % 1 % Neutrophils # (Manual) 9.7 TH/MM3 Myelocytes 2 % Differential Comment FINAL DIFF MANUAL Platelet Estimate NORMAL Platelet Morphology Comment NORMAL Blood Urea Nitrogen 16 MG/DL Creatinine 1.03 MG/DL Random Glucose 243 MG/DL Total Protein 6.3 GM/DL Albumin 3.6 GM/DL Calcium Level 8.9 MG/DL Alkaline Phosphatase 90 U/L Aspartate Amino Transf (AST/SGOT) 33 U/L Alanine Aminotransferase (ALT/SGPT) 88 U/L Total Bilirubin 0.5 MG/DL Sodium Level 138 MEQ/L Potassium Level 3.2 MEQ/L Chloride Level 100 MEQ/L Carbon Dioxide Level 25.5 MEQ/L Anion Gap 13 MEQ/L Estimat Glomerular Filtration Rate 76 ML/MIN Physical Exam General Appearance Remarks Mild respiratory distress. Eyes Eye Exam: Pupils Equal, Pupils Reactive Throat Throat Remarks Oral Thrush. Pulmonary Resp Exam: Decreased Bases, Diminished Breath Sounds Resp Remarks Bilateral wheezing. Gastrointestinal/Abdomen GI Exam: Soft, Non-Tender, Bowel Sounds Present, Distended Musculoskeletal MS Exam: Joints Intact, Normal Gait, Normal Tone Integumentary Skin Exam: Clear, Warm, Dry Extremeties Extremities Exam: Trace Edema, Pitting Edema Neurologic Neuro Exam: Alert, Awake, Oriented, Moving All Extremities, No Focal Deficits Psychiatric Psych Exam: Appropriate Responses VTE Prophylaxis VTE Remarks Eliquis. Assessment/Plan Assessment/Plan Assessment and Plan 1. COPD exacerbation /Acute respiratory failure Patient successfully weaned from BiPAP in the emergency department ABG 7.46/34/76/24 Supplemental oxygen as needed DuoNeb's Solu-Medrol Pulmonary input noted Singulair. 2. History of DVT/PE Continue eliquis. 3. Hypertension/hyperlipidemia Continue home medicine. 4. Diabetes mellitus Sliding scale insulin metformin Monitor blood glucose FEN Heart healthy, diabetic diet Hypertension on Cardiozem Depression on Paxil. Anxiety continue home medicine Lorazepam. Right Leg swelling recent venous doppler negative for DVT. BPH on Flomax. Hyperlipidemia on Lipitor 40 mg PO Daily. Oral Thrush on Nystatin. Iron deficiency Anemia. on ferrous sulphate. Leg edema on Lasix. Diarrhea c- diff negative getting better. DVT Prophylaxis ...on Eliquis. Discussed Condition with: Patient Myron Woodward MD Dec 19, 2017 11:44
[2017-12-19] MEDS ORDERED: POTASSIUM CHLORIDE 10 MEQ CONTROLLED RELEASE TAB PO ONE (12:00)
--- NOTE | 2017-12-19 16:32 | HHI.PR ---
Subjective Remarks impression less sob wheezing LESS Objective Vital Signs Date Time Temp Pulse Resp B/P (MAP) Pulse Ox O2 Delivery O2 Flow Rate FiO2 12/19/17 16:22 97.9 101 20 114/56 (75) 96 12/19/17 08:30 88 12/19/17 08:09 98.6 80 20 160/92 (114) 96 12/19/17 07:45 97 21 12/19/17 04:00 96.0 94 17 131/78 (95) 93 12/19/17 00:15 93 12/19/17 00:00 97.8 98 19 154/89 (110) 94 12/18/17 20:18 97.9 97 20 137/76 (96) 96 12/18/17 19:16 97 21 I/O 12/18/17 12/18/17 12/18/17 12/19/17 12/19/17 12/19/17 07:00 15:00 23:00 07:00 15:00 23:00 Intake Total 360 ml Output Total 600 ml Balance -240 ml Intake Oral 360 ml Output Urine Total 600 ml Result Diagram: 12/19/1782112/19/17821 Objective Remarks GENERAL: SKIN: Warm and dry. HEAD: Atraumatic. Normocephalic. EYES: Pupils equal and round. No scleral icterus. No injection or drainage. ENT: No nasal bleeding or discharge. Mucous membranes pink and moist. NECK: Trachea midline. No JVD. CARDIOVASCULAR: Regular rate and rhythm. RESPIRATORY: No accessory muscle use. wheezing to auscultation. Breath sounds equal bilaterally. GASTROINTESTINAL: Abdomen soft, non-tender, nondistended. Hepatic and splenic margins not palpable. MUSCULOSKELETAL: Extremities without clubbing, cyanosis, or edema. No obvious deformities. NEUROLOGICAL: Awake and alert. No obvious cranial nerve deficits. Motor grossly within normal limits. Five out of 5 muscle strength in the arms and legs. Normal speech. PSYCHIATRIC: Appropriate mood and affect; insight and judgment normal. Assessment and Plan Assessment and Plan asthma exacerbation DVT/PE DM ABDOMINAL DISTENTION PLAN O2 NEEDED BRONCHODILATOR THERAPY increase activity Mary Hernandez MD Dec 19, 2017 16:32
[2017-12-19] MEDS: ATORVASTATIN 20 MG TAB PO SCH (21:04)
[2017-12-19] MEDS: metroNIDAZOLE 500 MG TAB PO SCH (21:18)
[2017-12-19] MEDS: MONTELUKAST SODIUM 10 MG TAB PO SCH (21:18)
[2017-12-20] VITALS (11 sets, daily range): BP systolic 121–161; BP diastolic 71–97; PULSE 84–100; RESP 16–20; TEMP 97.7–98; O2SAT 95–96
[2017-12-20] MEDS: RESP: ALBUTEROL 2.5 MG/IPRATROPIUM 0.5 MG NEB (PRN) NEB ×5 (00:58→23:18)
[2017-12-20] MEDS: methylPREDNISolone SOD SUCC 40 MG/1 ML VIAL IV PUSH SCH ×4 (02:57→20:22)
[2017-12-20 04:20] LABS: AUTOMATED NEUTROPHIL # 9.8 TH/MM3 (1.8-7.7); BASOPHIL % 0.2 % (0.0-2.0); HEMATOCRIT 38.5 % (39.0-51.0); HEMOGLOBIN 13.3 GM/DL (13.0-17.0); LYMPH % 5.2 % (9.0-44.0); LYMPHOCYTE # 0.6 TH/MM3 (1.0-4.8); MEAN CELL VOLUME 83.8 FL (80.0-100.0); MEAN CORPUSCULAR HEMOGLOBIN 28.9 PG (27.0-34.0); MEAN CORPUSCULAR HGB CONC 34.5 % (32.0-36.0); MONO % 5.6 % (0.0-8.0); MONOCYTE # 0.6 TH/MM3 (0-0.9); PLATELET COUNT 276 TH/MM3 (150-450); RED BLOOD COUNT 4.59 MIL/MM3 (4.50-5.90); RED CELL DISTRIBUTION WIDTH 15.8 % (11.6-17.2)
[2017-12-20 04:44] LABS: ALBUMIN 3.2 GM/DL (3.4-5.0); AST (GOT) 21 U/L (15-37); BICARBONATE 27.2 MEQ/L (21.0-32.0); BLOOD UREA NITROGEN 19 MG/DL (7-18); CALCIUM 8.5 MG/DL (8.5-10.1); CHLORIDE 100 MEQ/L (98-107); CREATININE 1.09 MG/DL (0.60-1.30); GLOMERULAR FILTRATION RATE 71 ML/MIN (>89); GLUCOSE,RANDOM 228 MG/DL (74-106); SODIUM (NA) 138 MEQ/L (136-145)
[2017-12-20 04:46] LABS: ALT (GPT) 73 U/L (12-78)
[2017-12-20 04:47] LABS: ALKALINE PHOSPHATASE 92 U/L (45-117); TOTAL BILIRUBIN ADULT 0.4 MG/DL (0.2-1.0); TOTAL PROTEIN 5.6 GM/DL (6.4-8.2)
[2017-12-20] MEDS: metroNIDAZOLE 500 MG TAB PO SCH ×2 (05:52→13:19)
[2017-12-20 08:46] LABS: BANDS 4 % (0-6); LYMPHOCYTES 4 % (9-44); METAMYELOCYTES 4 % (0-1); MONOCYTES 5 % (0-8); MYELOCYTES 4 % (0-0); POLYS (SEG NEUTROPHILS) 79 % (16-70)
[2017-12-20 08:47] LABS: ACANTHOCYTES OCC (NORMAL); OVALOCYTES 1+ (NORMAL)
[2017-12-20] MEDS: DILTIAZEM-CD 180 MG CAP ER PO SCH (09:46)
[2017-12-20] MEDS: PANTOPRAZOLE SOD 40 MG DELAYED RELEASE TAB PO SCH (09:46)
[2017-12-20] MEDS: NYSTATIN SUSP 500,000 U/5 ML CUP SWISH-SWAL SCH ×4 (09:46→20:21)
[2017-12-20] MEDS: INSULIN ASPART SUPPLEMENTAL SCALE SQ SCH ×4 (09:46→22:02)
[2017-12-20] MEDS: LORazepam 0.5 MG TAB PO SCH ×2 (09:46→20:20)
[2017-12-20] MEDS: POTASSIUM CHLORIDE 20 MEQ CONTROLLED RELEASE TAB PO SCH ×2 (09:46→20:20)
[2017-12-20] MEDS: TAMSULOSIN HCL 0.4 MG CAP PO SCH (09:46)
[2017-12-20] MEDS: metFORMIN HCL 500 MG TAB PO SCH ×2 (09:46→17:39)
[2017-12-20] MEDS: BUDESONIDE-FORMOTEROL 160/4.5 MCG INHALER INH SCH ×2 (09:47→20:21)
[2017-12-20] MEDS: APIXABAN 5 MG TABLET PO SCH ×2 (09:47→20:20)
[2017-12-20] MEDS: FUROSEMIDE 40 MG TAB PO SCH (09:47)
[2017-12-20] MEDS: FERROUS SULFATE 325 MG (65 MG ELEMENTAL IRON) TAB PO SCH ×2 (09:47→20:20)
[2017-12-20] MEDS: PARoxetine HCL 20 MG TAB PO SCH (09:47)
[2017-12-20] MEDS: SODIUM CHLORIDE 0.9% FLUSH 10 ML FLUSH IV FLUSH SCH ×2 (09:47→20:22)
[2017-12-20] MEDS: SODIUM CHLORIDE 0.9% FLUSH 10 ML FLUSH IV FLUSH PRN (13:19)
--- NOTE | 2017-12-20 14:46 | HHI.PR ---
Subjective History of Present Illness Patient still SOB low potassium resolved still not better yet feel weak and tired diarrhea resolving c- diff negative. Review of Systems Constitutional Constitutional: Fatigue, Weakness Throat Throat Remarks Oral Thrush. Pulmonary Respiratory: Coughing, Shortness of Breath, Wheezing Vitals/Results Intake & Output 12/20/17 12/20/17 12/21/17 15:00 23:00 07:00 # Voids 2 # Bowel Movements 2 Vital Signs Vital Signs Date Time Temp Pulse Resp B/P (MAP) Pulse Ox O2 Delivery O2 Flow Rate FiO2 12/20/17 12:48 98.0 86 16 138/93 (108) 96 12/20/17 11:30 85 12/20/17 08:31 97.7 100 20 139/97 (111) 95 12/20/17 08:30 96 12/20/17 03:50 98.0 89 18 161/96 (117) 96 12/20/17 00:20 88 12/19/17 22:57 98.0 113 18 137/94 (108) 95 12/19/17 19:53 97.8 108 20 137/77 (97) 94 12/19/17 19:30 97 21 12/19/17 16:22 97.9 101 20 114/56 (75) 96 CBC/BMP: 12/20/17 0401 12/20/17 0401 Lab Results Laboratory Tests Test 12/19/17 18:40 12/20/17 04:01 Stool C. difficile Toxin (PCR) NEGATIVE Stl C. difficile Toxin Epiderm 027 PRESUMPTIVE NEGATIVE White Blood Count 11.0 TH/MM3 Red Blood Count 4.59 MIL/MM3 Hemoglobin 13.3 GM/DL Hematocrit 38.5 % Mean Corpuscular Volume 83.8 FL Mean Corpuscular Hemoglobin 28.9 PG Mean Corpuscular Hemoglobin Concent 34.5 % Red Cell Distribution Width 15.8 % Platelet Count 276 TH/MM3 Mean Platelet Volume 7.0 FL Neutrophils (%) (Auto) 89.0 % Lymphocytes (%) (Auto) 5.2 % Monocytes (%) (Auto) 5.6 % Eosinophils (%) (Auto) 0.0 % Basophils (%) (Auto) 0.2 % Neutrophils # (Auto) 9.8 TH/MM3 Lymphocytes # (Auto) 0.6 TH/MM3 Monocytes # (Auto) 0.6 TH/MM3 Eosinophils # (Auto) 0.0 TH/MM3 Basophils # (Auto) 0.0 TH/MM3 CBC Comment AUTO DIFF Differential Total Cells Counted 100 Neutrophils % (Manual) 79 % Band Neutrophils % 4 % Lymphocytes % 4 % Monocytes % 5 % Neutrophils # (Manual) 10.0 TH/MM3 Metamyelocytes 4 % Myelocytes 4 % Differential Comment FINAL DIFF MANUAL Platelet Estimate NORMAL Platelet Morphology Comment NORMAL Ovalocytes 1+ Acanthocytes OCC Blood Urea Nitrogen 19 MG/DL Creatinine 1.09 MG/DL Random Glucose 228 MG/DL Total Protein 5.6 GM/DL Albumin 3.2 GM/DL Calcium Level 8.5 MG/DL Alkaline Phosphatase 92 U/L Aspartate Amino Transf (AST/SGOT) 21 U/L Alanine Aminotransferase (ALT/SGPT) 73 U/L Total Bilirubin 0.4 MG/DL Sodium Level 138 MEQ/L Potassium Level 3.4 MEQ/L Chloride Level 100 MEQ/L Carbon Dioxide Level 27.2 MEQ/L Anion Gap 11 MEQ/L Estimat Glomerular Filtration Rate 71 ML/MIN Microbiology Microbiology 12/19/17 Stool Pus (STEFFANIE) - Final, Complete MODERATE WBC'S Physical Exam General General Appearance: Well Developed, Well Nourished Appearance Remarks mild distress. Eyes Eye Exam: Pupils Equal, Pupils Reactive Throat Throat Exam: Oral Pharynx Normal Throat Remarks Oral Thrush. Neck Neck Exam: Neck Supple, Trachea Midline Pulmonary Resp Exam: Decreased Bases, Diminished Breath Sounds Resp Remarks Bilateral wheezing Cardiology CV Exam: Regular, Normal Sinus Rhythm Gastrointestinal/Abdomen GI Exam: Soft, Non-Tender, Bowel Sounds Present, Distended Musculoskeletal MS Exam: Joints Intact, Normal Gait, Normal Tone Integumentary Skin Exam: Clear, Warm, Dry Extremeties Extremities Exam: Trace Edema Neurologic Neuro Exam: Alert, Awake, Oriented, Moving All Extremities, No Focal Deficits Psychiatric Psych Exam: Appropriate Responses VTE Prophylaxis VTE Remarks Eliquis. Assessment/Plan Assessment/Plan Assessment and Plan 1. COPD exacerbation /Acute respiratory failure Patient successfully weaned from BiPAP in the emergency department ABG 7.46/34/76/24 Supplemental oxygen as needed DuoNeb's Solu-Medrol Pulmonary input noted Yusufulair. 2. History of DVT/PE Continue eliquis. 3. Hypertension/hyperlipidemia Continue home medicine. 4. Diabetes mellitus Sliding scale insulin metformin Monitor blood glucose FEN Heart healthy, diabetic diet Hypertension on Cardiozem Depression on Paxil. Anxiety continue home medicine Lorazepam. Right Leg swelling recent venous doppler negative for DVT. BPH on Flomax. Hyperlipidemia on Lipitor 40 mg PO Daily. Oral Thrush on Nystatin. Iron deficiency Anemia. Leg edema on Lasix. Hypokalemia... Resolved. DVT Prophylaxis ...on Eliquis. Discussed Condition with: Patient Myron Woodward MD Dec 20, 2017 14:46
[2017-12-20] MEDS ORDERED: POTASSIUM CHLORIDE 10 MEQ CONTROLLED RELEASE TAB PO ONE (15:00)
[2017-12-20] MEDS: ATORVASTATIN 20 MG TAB PO SCH (20:19)
[2017-12-20] MEDS: MONTELUKAST SODIUM 10 MG TAB PO SCH (20:20)
[2017-12-21] VITALS (13 sets, daily range): BP systolic 100–156; BP diastolic 57–90; PULSE 68–109; RESP 16–18; TEMP 97.4–98.9; O2SAT 93–98
[2017-12-21] MEDS: methylPREDNISolone SOD SUCC 40 MG/1 ML VIAL IV PUSH SCH ×4 (02:31→20:14)
[2017-12-21] MEDS: RESP: ALBUTEROL 2.5 MG/IPRATROPIUM 0.5 MG NEB (PRN) NEB ×5 (03:14→21:11)
[2017-12-21 06:21] LABS: AUTOMATED NEUTROPHIL # 11.4 TH/MM3 (1.8-7.7); BASOPHIL % 0.1 % (0.0-2.0); HEMATOCRIT 39.8 % (39.0-51.0); HEMOGLOBIN 13.6 GM/DL (13.0-17.0); LYMPH % 3.7 % (9.0-44.0); LYMPHOCYTE # 0.5 TH/MM3 (1.0-4.8); MEAN CELL VOLUME 83.8 FL (80.0-100.0); MEAN CORPUSCULAR HEMOGLOBIN 28.6 PG (27.0-34.0); MEAN CORPUSCULAR HGB CONC 34.2 % (32.0-36.0); MEAN PLATELET VOLUME 7.4 FL (7.0-11.0); MONOCYTE # 0.5 TH/MM3 (0-0.9); NEUT % 92.2 % (16.0-70.0); PLATELET COUNT 249 TH/MM3 (150-450); RED BLOOD COUNT 4.75 MIL/MM3 (4.50-5.90); RED CELL DISTRIBUTION WIDTH 15.7 % (11.6-17.2); WHITE BLOOD COUNT 12.3 TH/MM3 (4.0-11.0)
[2017-12-21 06:23] LABS: ALBUMIN 3.3 GM/DL (3.4-5.0); AST (GOT) 16 U/L (15-37); BICARBONATE 24.2 MEQ/L (21.0-32.0); BLOOD UREA NITROGEN 21 MG/DL (7-18); CALCIUM 8.7 MG/DL (8.5-10.1); CHLORIDE 100 MEQ/L (98-107); GLOMERULAR FILTRATION RATE 70 ML/MIN (>89); GLUCOSE,RANDOM 302 MG/DL (74-106); SODIUM (NA) 136 MEQ/L (136-145)
[2017-12-21 06:28] LABS: ALKALINE PHOSPHATASE 87 U/L (45-117); ALT (GPT) 64 U/L (12-78); TOTAL BILIRUBIN ADULT 0.5 MG/DL (0.2-1.0); TOTAL PROTEIN 5.7 GM/DL (6.4-8.2)
[2017-12-21] MEDS: PARoxetine HCL 20 MG TAB PO SCH (09:29)
[2017-12-21] MEDS: FUROSEMIDE 40 MG TAB PO SCH (09:29)
[2017-12-21] MEDS: PANTOPRAZOLE SOD 40 MG DELAYED RELEASE TAB PO SCH (09:29)
[2017-12-21] MEDS: SODIUM CHLORIDE 0.9% FLUSH 10 ML FLUSH IV FLUSH SCH ×2 (09:29→20:16)
[2017-12-21] MEDS: NYSTATIN SUSP 500,000 U/5 ML CUP SWISH-SWAL SCH ×4 (09:29→20:13)
[2017-12-21] MEDS: DILTIAZEM-CD 180 MG CAP ER PO SCH (09:29)
[2017-12-21] MEDS: TAMSULOSIN HCL 0.4 MG CAP PO SCH (09:29)
[2017-12-21] MEDS: APIXABAN 5 MG TABLET PO SCH ×2 (09:30→20:15)
[2017-12-21] MEDS: LORazepam 0.5 MG TAB PO SCH ×2 (09:30→20:16)
[2017-12-21] MEDS: BUDESONIDE-FORMOTEROL 160/4.5 MCG INHALER INH SCH ×2 (09:30→20:16)
[2017-12-21] MEDS: metFORMIN HCL 500 MG TAB PO SCH ×2 (09:30→17:10)
[2017-12-21] MEDS: POTASSIUM CHLORIDE 20 MEQ CONTROLLED RELEASE TAB PO SCH ×2 (09:30→20:14)
[2017-12-21] MEDS: FERROUS SULFATE 325 MG (65 MG ELEMENTAL IRON) TAB PO SCH ×2 (09:30→20:15)
[2017-12-21] MEDS: INSULIN ASPART SUPPLEMENTAL SCALE SQ SCH ×4 (09:30→21:48)
[2017-12-21 09:34] LABS: BANDS 7 % (0-6); CORRECTED NUCLEATED RBC 3 /100 WBC (0-0); LYMPHOCYTES 4 % (9-44); METAMYELOCYTES 4 % (0-1); MONOCYTES 3 % (0-8); MYELOCYTES 4 % (0-0); NEUTROPHIL # MANUAL DIFF 11.4 TH/MM3 (1.8-7.7); NUCLEATED RED BLOOD CELL 3 (0-0); POLYS (SEG NEUTROPHILS) 78 % (16-70)
[2017-12-21 09:35] LABS: ACANTHOCYTES OCC (NORMAL); OVALOCYTES 1+ (NORMAL)
--- NOTE | 2017-12-21 12:40 | HHI.PR ---
Subjective History of Present Illness Patient still SOB low potassium resolved still not better yet feel weak and tired diarrhea resolving Review of Systems Constitutional Constitutional: Fatigue, Weakness Throat Throat Remarks Oral Thrush. Pulmonary Respiratory: Coughing, Shortness of Breath, Wheezing GI/Abdomen GI/Abdominal Exam: Diarrhea GI/Abdomen Remarks Distended. Vitals/Results Intake & Output 12/21/17 12/21/17 12/22/17 15:00 23:00 07:00 # Voids 2 Vital Signs Vital Signs Date Time Temp Pulse Resp B/P (MAP) Pulse Ox O2 Delivery O2 Flow Rate FiO2 12/21/17 11:54 102 12/21/17 11:29 98.2 97 18 156/89 (111) 98 12/21/17 08:09 98.0 98 16 147/90 (109) 96 12/21/17 08:00 106 12/21/17 04:25 97.7 87 18 135/67 (89) 95 12/21/17 04:20 97.4 68 16 100/57 (71) 93 12/21/17 04:08 81 12/21/17 00:00 94 12/20/17 23:45 98.0 94 18 143/77 (99) 96 12/20/17 21:33 97.9 98 18 146/93 (110) 95 12/20/17 20:15 95 12/20/17 15:26 97.9 96 16 121/71 (88) 96 12/20/17 15:25 84 12/20/17 12:48 98.0 86 16 138/93 (108) 96 CBC/BMP: 12/21/17 0512 12/21/17 0512 Lab Results Laboratory Tests Test 12/21/17 05:12 White Blood Count 12.3 TH/MM3 Red Blood Count 4.75 MIL/MM3 Hemoglobin 13.6 GM/DL Hematocrit 39.8 % Mean Corpuscular Volume 83.8 FL Mean Corpuscular Hemoglobin 28.6 PG Mean Corpuscular Hemoglobin Concent 34.2 % Red Cell Distribution Width 15.7 % Platelet Count 249 TH/MM3 Mean Platelet Volume 7.4 FL Neutrophils (%) (Auto) 92.2 % Lymphocytes (%) (Auto) 3.7 % Monocytes (%) (Auto) 4.0 % Eosinophils (%) (Auto) 0.0 % Basophils (%) (Auto) 0.1 % Neutrophils # (Auto) 11.4 TH/MM3 Lymphocytes # (Auto) 0.5 TH/MM3 Monocytes # (Auto) 0.5 TH/MM3 Eosinophils # (Auto) 0.0 TH/MM3 Basophils # (Auto) 0.0 TH/MM3 CBC Comment AUTO DIFF Differential Total Cells Counted 100 Neutrophils % (Manual) 78 % Band Neutrophils % 7 % Lymphocytes % 4 % Monocytes % 3 % Neutrophils # (Manual) 11.4 TH/MM3 Metamyelocytes 4 % Myelocytes 4 % Nucleated Red Blood Cells 3 /100 WBC Differential Comment FINAL DIFF MANUAL Platelet Estimate LOW Platelet Morphology Comment NORMAL Ovalocytes 1+ Acanthocytes OCC Blood Urea Nitrogen 21 MG/DL Creatinine 1.10 MG/DL Random Glucose 302 MG/DL Total Protein 5.7 GM/DL Albumin 3.3 GM/DL Calcium Level 8.7 MG/DL Alkaline Phosphatase 87 U/L Aspartate Amino Transf (AST/SGOT) 16 U/L Alanine Aminotransferase (ALT/SGPT) 64 U/L Total Bilirubin 0.5 MG/DL Sodium Level 136 MEQ/L Potassium Level 3.9 MEQ/L Chloride Level 100 MEQ/L Carbon Dioxide Level 24.2 MEQ/L Anion Gap 12 MEQ/L Estimat Glomerular Filtration Rate 70 ML/MIN Physical Exam General General Appearance: Well Developed, Well Nourished Appearance Remarks mild distress. Eyes Eye Exam: Pupils Equal, Pupils Reactive Throat Throat Exam: Oral Pharynx Normal Throat Remarks Oral Thrush. Neck Neck Exam: Neck Supple, Trachea Midline Pulmonary Resp Exam: Decreased Bases, Diminished Breath Sounds Resp Remarks Bilateral wheezing Cardiology CV Exam: Regular, Normal Sinus Rhythm Gastrointestinal/Abdomen GI Exam: Soft, Non-Tender, Bowel Sounds Present, Distended Musculoskeletal MS Exam: Joints Intact, Normal Gait, Normal Tone Integumentary Skin Exam: Clear, Warm, Dry Extremeties Extremities Exam: Trace Edema Neurologic Neuro Exam: Alert, Awake, Oriented, Moving All Extremities, No Focal Deficits Psychiatric Psych Exam: Appropriate Responses VTE Prophylaxis VTE Remarks Eliquis. PUD Prophylasis PUD Prophylaxis: Protonix Assessment/Plan Assessment/Plan Assessment and Plan 1. COPD exacerbation /Acute respiratory failure Patient successfully weaned from BiPAP in the emergency department ABG 7.46/34/76/24 Supplemental oxygen as needed DuoNeb's Solu-Medrol Pulmonary input noted Singulair. 2. History of DVT/PE Continue eliquis. 3. Hypertension/hyperlipidemia Continue home medicine. 4. Diabetes mellitus Sliding scale insulin metformin Monitor blood glucose FEN Heart healthy, diabetic diet Hypertension on Cardiozem Depression on Paxil. Anxiety continue home medicine Lorazepam. Right Leg swelling recent venous doppler negative for DVT. BPH on Flomax. Hyperlipidemia on Lipitor 40 mg PO Daily. Oral Thrush on Nystatin. Iron deficiency Anemia. Leg edema on Lasix. Hypokalemia... Resolved. Diarrhea resolving C- Diff Negative. DVT Prophylaxis ...on Eliquis. Check CBC with diff CMP in AM. Discussed Condition with: Patient Myron Woodward MD Dec 21, 2017 12:40
[2017-12-21] MEDS: SODIUM CHLORIDE 0.9% FLUSH 10 ML FLUSH IV FLUSH PRN (13:25)
[2017-12-21] MEDS: MONTELUKAST SODIUM 10 MG TAB PO SCH (20:14)
[2017-12-21] MEDS: ATORVASTATIN 20 MG TAB PO SCH (20:15)
[2017-12-22] VITALS (7 sets, daily range): BP systolic 132–158; BP diastolic 76–99; PULSE 84–107; RESP 18–20; TEMP 97.6–98.1; O2SAT 94–97
[2017-12-22] MEDS: methylPREDNISolone SOD SUCC 40 MG/1 ML VIAL IV PUSH SCH ×3 (01:47→14:23)
[2017-12-22] MEDS: RESP: ALBUTEROL 2.5 MG/IPRATROPIUM 0.5 MG NEB (PRN) NEB ×2 (03:57→07:51)
[2017-12-22] MEDS: DILTIAZEM-CD 180 MG CAP ER PO SCH (08:32)
[2017-12-22] MEDS: FUROSEMIDE 40 MG TAB PO SCH (08:32)
[2017-12-22] MEDS: metFORMIN HCL 500 MG TAB PO SCH (08:32)
[2017-12-22] MEDS: TAMSULOSIN HCL 0.4 MG CAP PO SCH (08:33)
[2017-12-22] MEDS: PARoxetine HCL 20 MG TAB PO SCH (08:33)
[2017-12-22] MEDS: SODIUM CHLORIDE 0.9% FLUSH 10 ML FLUSH IV FLUSH SCH (08:33)
[2017-12-22] MEDS: LORazepam 0.5 MG TAB PO SCH (08:33)
[2017-12-22] MEDS: POTASSIUM CHLORIDE 20 MEQ CONTROLLED RELEASE TAB PO SCH (08:33)
[2017-12-22] MEDS: FERROUS SULFATE 325 MG (65 MG ELEMENTAL IRON) TAB PO SCH (08:33)
[2017-12-22] MEDS: PANTOPRAZOLE SOD 40 MG DELAYED RELEASE TAB PO SCH (08:33)
[2017-12-22] MEDS: APIXABAN 5 MG TABLET PO SCH (08:33)
[2017-12-22] MEDS: NYSTATIN SUSP 500,000 U/5 ML CUP SWISH-SWAL SCH ×2 (08:34→12:41)
[2017-12-22] MEDS: BUDESONIDE-FORMOTEROL 160/4.5 MCG INHALER INH SCH (08:34)
[2017-12-22] MEDS: INSULIN ASPART SUPPLEMENTAL SCALE SQ SCH ×2 (09:17→13:19)
--- NOTE | 2017-12-22 14:06 | HHI.PR ---
Subjective History of Present Illness Patient Shortness of Breath and wheezing much better ok to discharge home today. Review of Systems Constitutional Constitutional: Fatigue, Weakness Throat Throat Remarks Oral thrush. Pulmonary Respiratory: Coughing, Shortness of Breath, Wheezing GI/Abdomen GI/Abdominal Exam: Diarrhea GI/Abdomen Remarks Distended. Musculoskeletal MS Remarks Leg edema. Vitals/Results Vital Signs Vital Signs Date Time Temp Pulse Resp B/P (MAP) Pulse Ox O2 Delivery O2 Flow Rate FiO2 12/22/17 12:00 98.1 107 18 132/95 (107) 96 12/22/17 08:00 97.6 93 20 158/99 (118) 97 12/22/17 07:52 97 Nasal Cannula 2.00 12/22/17 07:15 84 12/22/17 05:01 97.7 102 18 136/76 (96) 94 12/22/17 04:26 91 12/22/17 00:46 92 12/21/17 23:58 98.1 85 18 137/80 (99) 93 12/21/17 20:03 98.0 98 18 135/65 (88) 96 12/21/17 20:00 96 12/21/17 16:01 98.9 105 16 117/71 (86) 96 12/21/17 15:03 109 CBC/BMP: 12/21/17 0512 12/21/17 0512 Physical Exam General General Appearance: Well Developed, Well Nourished Appearance Remarks Mild respiratory distress. Eyes Eye Exam: Pupils Equal, Pupils Reactive Throat Throat Exam: Oral Pharynx Normal Throat Remarks Oral Thrush. Neck Neck Exam: Neck Supple, Trachea Midline Pulmonary Resp Exam: Decreased Bases, Diminished Breath Sounds Resp Remarks Bilateral wheezing. Cardiology CV Exam: Regular, Normal Sinus Rhythm Gastrointestinal/Abdomen GI Exam: Soft, Non-Tender, Bowel Sounds Present, Distended Musculoskeletal MS Exam: Joints Intact, Normal Gait, Normal Tone Integumentary Skin Exam: Clear, Warm, Dry Extremeties Extremities Exam: Trace Edema, Pitting Edema Neurologic Neuro Exam: Alert, Awake, Oriented, Moving All Extremities, No Focal Deficits Psychiatric Psych Exam: Appropriate Responses VTE Prophylaxis VTE Remarks Eliquis. PUD Prophylasis PUD Prophylaxis: Protonix Assessment/Plan Assessment/Plan Assessment and Plan 1. COPD exacerbation /Acute respiratory failure Patient successfully weaned from BiPAP in the emergency department ABG 7.46/34/76/24 Supplemental oxygen as needed DuoNeb's Solu-Medrol Pulmonary input noted Singulair. 2. History of DVT/PE Continue eliquis. 3. Hypertension/hyperlipidemia Continue home medicine. 4. Diabetes mellitus Sliding scale insulin metformin Monitor blood glucose FEN Heart healthy, diabetic diet Hypertension on Cardiozem Depression on Paxil. Anxiety continue home medicine Lorazepam. Right Leg swelling recent venous doppler negative for DVT. BPH on Flomax. Hyperlipidemia on Lipitor 40 mg PO Daily. Oral Thrush on Nystatin. Iron deficiency Anemia. on ferrous sulphate. Leg edema on Lasix. Diarrhea c- diff negative getting better. DVT Prophylaxis ...on Eliquis. ok to discharge home today. f/u with PCP and Pulmonary 1 week. Discussed Condition with: Patient Myron Woodward MD Dec 22, 2017 14:06
--- NOTE | 2017-12-22 14:35 | MD ---
cc: Myron Woodward MD DATE OF DISCHARGE: Okay to discharge the patient home. CONDITION AT THE TIME OF DISCHARGE: Satisfactory. ACTIVITY: As tolerated. DIET: Cardiac diet, ADA 1800 calorie diet. ALLERGIES: DOXYCYCLINE, MEPERIDINE, MINOCYCLINE, TETRACYCLINE, TIGECYCLINE. DISCHARGE MEDICATIONS: Include albuterol inhaler 2 puffs inhalation q. 4-6 hours, Eliquis 5 mg twice a day, Lipitor 40 mg p.o. daily, budesonide 2 puff inhalation q. 12 hours, diltiazem ER 360 mg p.o. daily, ferrous sulfate 325 mg p.o. daily, furosemide 40 mg p.o. daily, lorazepam 0.5 mg p.o. b.i.d. p.r.n. anxiety, metformin 500 mg twice a day, Singulair 10 mg p.o. daily, Protonix 40 mg daily, Paxil 20 mg daily, potassium chloride 20 mEq p.o. b.i.d., prednisone 10 mg p.o. b.i.d., Flomax 0.4 mg p.o. daily, nystatin oral suspension 5 mL p.o. q. 6 hours. The patient advised to followup with PCP and pulmonary, 1 week. ADMITTING DIAGNOSIS: Chronic obstructive pulmonary disease exacerbation and asthma exacerbation. DISCHARGE DIAGNOSES: 1. Chronic obstructive pulmonary disease exacerbation, asthma exacerbation, improved. 2. Acute respiratory failure, which is improved. 3. History of diabetes mellitus. Continue home medication. 4. History of pulmonary embolism and deep vein thrombosis of the right lower extremity. The patient is on Eliquis. 5. History of hyperlipidemia. The patient on Lipitor 40 mg p.o. daily. 6. Diabetes mellitus. The patient on metformin 500 mg twice a day. 7. History of depression. Patient was on Paxil. 8. History of anxiety. Patient was on lorazepam. 9. Benign prostatic hypertrophy. The patient was on Flomax. 10. Oral thrush. The patient was on nystatin. 11. The patient has iron deficiency anemia. The patient is on ferrous sulfate. 12. The patient had diarrhea during hospital stay, which is improved. HOSPITAL COURSE: This is a very pleasant 52-year-old male admitted with COPD, asthma/acute respiratory failure. The patient was given Solu-Medrol IV. The patient was given DuoNeb nebulization. The patient was seen by Dr. Hernandez, senior ui designer. The patient remained stable. No acute events happened. The patient's chest x-ray done shows mild basilar atelectasis, no effusion or pneumothorax. The patient had a CT abdomen and pelvis done, shows no acute inflammatory process, no renal calculi or hydronephrosis. The patient had mild leukocytosis during hospital stay, most likely secondary to steroid intake. The patient also had hypokalemia, which is resolved. Patient's sugar was high because of the IV Solu-Medrol. The patient has diarrhea. Negative for C. difficile. The patient remained stable otherwise during the hospital stay. No acute event happened. The patient discharged in a satisfactory condition. Further details in the medical record. Myron Woodward MD EA/ELPIDIO , 02:13 PM , 02:34 PM
== END 2017-12-22 16:59 | disposition home or self-care (01) ==
LOC: NEPC 18:54 → NEDA 20:54 → NEDH 12-16 02:51 → NEPGCP 12-16 12:59
PROVIDERS: ADMIT Family Medicine; ATTEND Family Medicine
DX: J44.1 Chronic obstructive pulmonary disease with (acute) exacerbation (principal); J96.00 Acute respiratory failure, unspecified whether with hypoxia or hypercapnia; E87.6 Hypokalemia; R19.7 Diarrhea, unspecified; I10 Essential (primary) hypertension; E78.00 Pure hypercholesterolemia, unspecified; E11.9 Type 2 diabetes mellitus without complications; K21.9 Gastro-esophageal reflux disease without esophagitis; I25.2 Old myocardial infarction; R00.0 Tachycardia, unspecified; K42.9 Umbilical hernia without obstruction or gangrene; B37.0 Candidal stomatitis; D50.9 Iron deficiency anemia, unspecified; D72.829 Elevated white blood cell count, unspecified; F32.9 Major depressive disorder, single episode, unspecified; F41.9 Anxiety disorder, unspecified; R06.03 Acute respiratory distress; N40.0 Benign prostatic hyperplasia without lower urinary tract symptoms; Z79.899 Other long term (current) drug therapy; Z79.01 Long term (current) use of anticoagulants; Z86.711 Personal history of pulmonary embolism; Z86.718 Personal history of other venous thrombosis and embolism; Z82.49 Family history of ischemic heart disease and other diseases of the circulatory system
CPT/HCPCS: 36600; 71046; 74176; 80048; 80053; 82550; 82552; 82805; 82948; 83735; 83880; 84484; 85007; 85025; 85027; 87205; 87493; 93005; 94002; 94640; 94664; 96361; 96372; 96374; 96376; 99285; G0378; J1815; J2920; J2930; J7030; Q9963

== ENCOUNTER 2017-12-31 08:42 | Inpatient (IN) | payer BC ==
[2017-12-31] VITALS (15 sets, daily range): BP systolic 128–156; BP diastolic 72–117; PULSE 84–124; RESP 16–34; TEMP 97.4–98.6; O2SAT 96–99
[~2017-12-31] VITALS: Ht 175.3 cm; Wt 103.1 kg
[2017-12-31] MEDS ORDERED: SODIUM CHLOR 0.9% 1000 ML INJ 1,000 ML IV ONE (09:00)
[2017-12-31] MEDS ORDERED: SODIUM CHLORIDE 0.9% FLUSH 10 ML FLUSH IVF PRN (09:00)
[2017-12-31] MEDS ORDERED: methylPREDNISolone SOD SUCC 125 MG/2 ML VIAL IV PUSH ONE (09:00)
--- NOTE | 2017-12-31 09:05 | PD ---
HPI Chief Complaint: copd exacerabation Time Seen by Provider: 08:51 Travel History International Travel<30 days: No Contact w/Intl Traveler<30days: No History of Present Illness HPI Patient is a 52 year old male with history of COPD, diabetes, hypertension, hyperlipidemia, DVT and PE currently anticoagulated on Eliquis, presents to the emergency room with complaints of shortness of breath. Patient's reports that patient had a bad night as he was unable to sleep and has been uncomfortable. Reports that this morning, he began to wheeze and become short of breath. Patient reports history of COPD, he does follow-up with Dr. Hernandez with pulmonology for his lungs. Patient reports that he has had a productive cough, he was recently hospitalized and admitted on December 15, 2017 for similar symptoms. PFSH Past Medical History Hx Anticoagulant Therapy: Yes (eliquis) Arthritis: Yes Asthma: Yes Autoimmune Disease: No Blood Disorders: No Anxiety: Yes Depression: No Heart Rhythm Problems: Yes (sinus tachycardia) Cancer: No Cardiovascular Problems: Yes (PT REPORTS TACHYCARDIA) High Cholesterol: Yes Chemotherapy: No Chest Pain: No Congestive Heart Failure: No COPD: Yes Cerebrovascular Accident: No Diabetes: Yes (NIDDM) Diminished Hearing: No Deep Vein Thrombosis: Yes (DECEMBER 2015: RIGHT LEG WITH PULMONARY EMBOLISM X2) Endocrine: Yes Gastrointestinal Disorders: Yes (GERD) GERD: Yes Genitourinary: Yes (BPH) Headaches: No Hepatitis: No Hiatal Hernia: No Heparin Induced Thrombocytopen: No Hypertension: Yes Immune Disorder: No Implanted Vascular Access Dvce: Yes Kidney Stones: No Musculoskeletal: Yes (HIP SURGERIES, ARTHRITIS) Neurologic: No Psychiatric: Yes (ANXIETY) Reproductive: Yes (BPH) Respiratory: Yes (COPD, asthma, PE) Migraines: No Myocardial Infarction: Yes Pneumonia: Yes (NOVEMBER 2015) Radiation Therapy: No Renal Failure: No Seizures: No Sickle Cell Disease: No Sleep Apnea: No Thyroid Disease: No Ulcer: No Past Surgical History Abdominal Surgery: No AICD: No Appendectomy: Yes Arteriovenous Shunt: No Cardiac Surgery: No Endocrine Surgery: No Eye Surgery: Yes (cataract surgery, lens inplants) Genitourinary Surgery: Yes (appendectomy) Gynecologic Surgery: No Insulin Pump: No Joint Replacement: Yes (RIGHT HIP REPLACEMENT) Neurologic Surgery: No Oral Surgery: Yes (TONSILLECTOMY) Pacemaker: No Thoracic Surgery: No Tonsillectomy: Yes Other Surgery: Yes (HIPS, APPENDIX, TONSILS) Social History Alcohol Use: No Tobacco Use: No Substance Use: No Allergies-Medications (Allergen,Severity, Reaction): Coded Allergies: doxycycline (Unverified Allergy, Severe, throat swells, 12/15/17) minocycline (Unverified Allergy, Severe, throat swells, 12/15/17) tetracycline (Verified Allergy, Severe, Anaphylaxis, 12/15/17) tigecycline (Unverified Allergy, Severe, throat swells, 12/15/17) meperidine (Unverified Allergy, Intermediate, hallucinations, 12/15/17) Reported Meds & Prescriptions Reported Meds & Active Scripts Active [Nystatin Liq] 5 ML Susp 5 Ml SWISH-SWAL QID Proventil Hfa 6.7 GM Inh (Albuterol Sulfate) 90 Mcg/Act Aer 2 Puff INH Q4-6H PRN Potassium Chloride ER (Potassium Chloride) 20 Meq Tab 20 Meq PO BID Flomax (Tamsulosin HCl) 0.4 Mg Cap 0.4 Mg PO DAILY Glucophage (Metformin HCl) 500 Mg Tab 500 Mg PO BIDPC Ferosul (Ferrous Sulfate) 325 Mg Tablet 325 Mg PO BID Furosemide 40 Mg Tab 40 Mg PO DAILY Eliquis (Apixaban) 5 Mg Tab 5 Mg PO BID Ativan (Lorazepam) 0.5 Mg Tab 0.5 Mg PO BID Reported Paroxetine (Paroxetine HCl) 20 Mg Tab 20 Mg PO DAILY Pantoprazole (Pantoprazole Sodium) 40 Mg Tab 40 Mg PO DAILY Prednisone 10 Mg Tab 10 Mg PO BID Matzim [place] (Diltiazem ER 24 HR) 360 Mg Can 360 Mg PO DAILY Symbicort Inh (Budesonide/Formoterol Fumarate) 160-4.5 Mcg/Act Aero 2 Puff INH Q12HR Singulair (Montelukast Sodium) 10 Mg Tab 10 Mg PO HS Lipitor (Atorvastatin Calcium) 20 Mg Tab 40 Mg PO HS Levalbuterol Neb (Levalbuterol HCl) 1.25 Mg/3 Ml Neb 1.25 Mg NEB BID PRN Review of Systems General / Constitutional: No: Fever Eyes: No: Visual changes HENT: No: Headaches Cardiovascular: No: Chest Pain or Discomfort Respiratory: Positive: Cough, Shortness of Breath, Wheezing Gastrointestinal: No: Nausea, Vomiting, Abdominal Pain Genitourinary: No: Dysuria Musculoskeletal: No: Pain Skin: No Rash Neurologic: No: Weakness Psychiatric: No: Depression Endocrine: No: Polydipsia Hematologic/Lymphatic: No: Easy Bruising Physical Exam Narrative GENERAL: moderate distress SKIN: Focused skin assessment warm/dry. HEAD: Atraumatic. Normocephalic. EYES: Pupils equal and round. No scleral icterus. No injection or drainage. ENT: No nasal bleeding or discharge. Mucous membranes pink and moist. NECK: Trachea midline. No JVD. CARDIOVASCULAR: Tachycardic. No murmur appreciated. RESPIRATORY: Patient with diffuse wheezing with increased accessory muscle use GASTROINTESTINAL: Abdomen soft, non-tender, nondistended. Hepatic and splenic margins not palpable. MUSCULOSKELETAL: No obvious deformities. No clubbing. No cyanosis. No edema. NEUROLOGICAL: Awake and alert. No obvious cranial nerve deficits. Motor grossly within normal limits. Normal speech. PSYCHIATRIC: Anxious mood and affect; insight and judgment normal. Data Data Last Documented VS Vital Signs Date Time Temp Pulse Resp B/P (MAP) Pulse Ox O2 Delivery O2 Flow Rate FiO2 12/31/17 09:38 87 24 145/87 (106) 97 BiPAP 12/31/17 09:11 40 Orders Orders Complete Blood Count With Diff (12/31/17 08:52) Comprehensive Metabolic Panel (12/31/17 08:52) Act Partial Throm Time (Ptt) (12/31/17 08:52) Prothrombin Time / Inr (Pt) (12/31/17 08:52) Magnesium (Mg) (12/31/17 08:52) Arterial Blood Gas (Abg) (12/31/17 08:52) Influenzae A/B Antigen (12/31/17 08:52) Blood Culture (12/31/17 08:52) Iv Access Insert/Monitor (12/31/17 08:52) Electrocardiogram (12/31/17 08:52) Ecg Monitoring (12/31/17 08:52) Oximetry (12/31/17 08:52) Chest, Single Ap (12/31/17 08:52) Sodium Chloride 0.9% Flush (Ns Flush) (12/31/17 09:00) Methylprednisolone So Succ Inj (Solumedr (12/31/17 09:00) Albuterol-Ipratropium Neb (Duoneb Neb) (12/31/17 09:00) Resp Bipap / Cpap Non Invas Vt (12/31/17 08:52) Sodium Chlor 0.9% 1000 Ml Inj (Ns 1000 M (12/31/17 09:00) Magnesium Sulfate 1 Gm Premix (Magnesium (12/31/17 09:15) Ckmb (Isoenzyme) Profile (12/31/17 10:22) Troponin I (12/31/17 10:22) Electrocardiogram (12/31/17 10:23) Albuterol Neb (Albuterol Neb) (12/31/17 10:30) Lorazepam Inj (Ativan Inj) (12/31/17 10:30) Admit Order (Ed Use Only) (12/31/17 10:39) Labs Laboratory Tests Test 12/31/17 09:00 12/31/17 09:20 White Blood Count 15.5 TH/MM3 Red Blood Count 4.83 MIL/MM3 Hemoglobin 14.0 GM/DL Hematocrit 41.7 % Mean Corpuscular Volume 86.2 FL Mean Corpuscular Hemoglobin 29.0 PG Mean Corpuscular Hemoglobin Concent 33.6 % Red Cell Distribution Width 16.6 % Platelet Count 191 TH/MM3 Mean Platelet Volume 7.9 FL Neutrophils (%) (Auto) 86.2 % Lymphocytes (%) (Auto) 7.3 % Monocytes (%) (Auto) 6.1 % Eosinophils (%) (Auto) 0.1 % Basophils (%) (Auto) 0.3 % Neutrophils # (Auto) 13.4 TH/MM3 Lymphocytes # (Auto) 1.1 TH/MM3 Monocytes # (Auto) 0.9 TH/MM3 Eosinophils # (Auto) 0.0 TH/MM3 Basophils # (Auto) 0.1 TH/MM3 CBC Comment AUTO DIFF Differential Total Cells Counted 100 Neutrophils % (Manual) 78 % Band Neutrophils % 3 % Lymphocytes % 12 % Monocytes % 7 % Neutrophils # (Manual) 12.6 TH/MM3 Differential Comment FINAL DIFF MANUAL Platelet Estimate NORMAL Platelet Morphology Comment NORMAL Prothrombin Time 10.0 SEC Prothromb Time International Ratio 1.0 RATIO Activated Partial Thromboplast Time 21.8 SEC Blood Urea Nitrogen 16 MG/DL Creatinine 1.07 MG/DL Random Glucose 308 MG/DL Total Protein 6.5 GM/DL Albumin 3.5 GM/DL Calcium Level 9.2 MG/DL Magnesium Level 1.8 MG/DL Alkaline Phosphatase 135 U/L Aspartate Amino Transf (AST/SGOT) 30 U/L Alanine Aminotransferase (ALT/SGPT) 96 U/L Total Bilirubin 0.6 MG/DL Sodium Level 138 MEQ/L Potassium Level 3.8 MEQ/L Chloride Level 102 MEQ/L Carbon Dioxide Level 22.9 MEQ/L Anion Gap 13 MEQ/L Estimat Glomerular Filtration Rate 72 ML/MIN Blood Gas Puncture Site LT RADIAL Blood Gas Patient Temperature 98.6 Blood Gas HCO3 21 mmol/L Blood Gas Base Excess -1.0 mmol/L Blood Gas Oxygen Saturation 97 % Arterial Blood pH 7.56 Arterial Blood Partial Pressure CO2 24 mmHg Arterial Blood Partial Pressure O2 111 mmHG Arterial Blood Oxygen Content 18.0 Vol % Arterial Blood Carboxyhemoglobin 1.2 % Arterial Blood Methemoglobin 0.8 % Blood Gas Hemoglobin 13.1 G/DL Oxygen Delivery Device BIPAP Blood Gas Ventilator Setting 15/5 Blood Gas Inspired Oxygen 40 % MDM Medical Decision Making Medical Screen Exam Complete: Yes Emergency Medical Condition: Yes Medical Record Reviewed: Yes Interpretation(s) EKG at 0857: Sinus tach at 112bpm, qt/qtc: 314/380 Differential Diagnosis COPD exacerbation, PE, pneumonia, pneumothorax Narrative Course 52-year-old male who presents the emergency room with complaints of COPD exacerbation, symptoms began early this morning and is associated with wheezing and shortness of breath During the course of the patients emergency department visit, the patients history, examination, and differential diagnosis were reviewed with the patient. The patient was placed on a history faculty member with oximetry and frequent blood pressure monitoring. The patient had an IV access obtained and blood work sent for analysis. The patient was initially provided IV Solu-Medrol, duo nebs as well as IV magnesium. BiPAP was also initiated at 15/5. The patients laboratory studies were reviewed and remarkable for CBC & BMP Diagram 12/31/17 09:00 Total Protein 6.5, Albumin 3.5, Calcium Level 9.2, Magnesium Level 1.8, Alkaline Phosphatase 135 H, Aspartate Amino Transf (AST/SGOT) 30, Alanine Aminotransferase (ALT/SGPT) 96 H, Total Bilirubin 0.6 Radiology studies were reviewed and remarkable for Last Impressions Chest X-Ray 12/31/17 0426 Signed Impressions: Service Date/Time: Sunday, December 31, 2017 09:20 - CONCLUSION: Normal examination. Anant Andrews MD Patient reevaluated, patient continues to wheeze on BiPAP. 3 DuoNeb's had been administered, will order another 3 nebs. Patient will require close monitoring. Patient does have a leukocytosis - most likely steroid induced as he has been on steroids Case reviewed with Dr. Myron Woodward who accepts patient to service. Critical Care Narrative Aggregate critical care time was 30 minutes. Time to perform other separately billable procedures was not included in the critical care time. My time did not include minutes spent treating any other patients simultaneously or on activities that did not directly contribute to the patient's treatment. The services I provided to this patient were to treat and/or prevent clinically significant deterioration that could result in: , decompensation, deterioration I provided critical care services requiring my management, as noted below: Chart data review, documentation time, medication orders and management, vital sign assessments/reviewing monitor data, ordering and reviewing lab tests, ordering and interpreting/reviewing x-rays and diagnostic studies, care of the patient and discussion of the patient with the admitting physicians. Diagnosis Primary Impression: COPD exacerbation Admitting Information Admitting Physician Requests: Admit Monica Pearce DO Dec 31, 2017 09:05
[2017-12-31] MEDS: RESP: ALBUTEROL 2.5 MG/IPRATROPIUM 0.5 MG NEB (SCH) INH ×2 (09:11→09:12)
[2017-12-31] MEDS: MAGNESIUM SULFATE 1 GM PREMIX 100 ML IV SCH ×2 (09:15→10:15)
[2017-12-31 09:17] LABS: AUTOMATED NEUTROPHIL # 13.4 TH/MM3 (1.8-7.7); BASOPHIL # 0.1 TH/MM3 (0-0.2); BASOPHIL % 0.3 % (0.0-2.0); EOSINOPHIL % 0.1 % (0.0-4.0); HEMATOCRIT 41.7 % (39.0-51.0); LYMPH % 7.3 % (9.0-44.0); LYMPHOCYTE # 1.1 TH/MM3 (1.0-4.8); MEAN CELL VOLUME 86.2 FL (80.0-100.0); MEAN CORPUSCULAR HGB CONC 33.6 % (32.0-36.0); MEAN PLATELET VOLUME 7.9 FL (7.0-11.0); MONO % 6.1 % (0.0-8.0); MONOCYTE # 0.9 TH/MM3 (0-0.9); NEUT % 86.2 % (16.0-70.0); PLATELET COUNT 191 TH/MM3 (150-450); RED BLOOD COUNT 4.83 MIL/MM3 (4.50-5.90); RED CELL DISTRIBUTION WIDTH 16.6 % (11.6-17.2); WHITE BLOOD COUNT 15.5 TH/MM3 (4.0-11.0)
--- NOTE | 2017-12-31 09:42 | RADRPT ---
EXAM DATE/TIME: 12/31/2017 09:20 [facility] COMPARISON: CHEST SINGLE AP, November 17, 2017, 8:39. INDICATIONS : Shortness of breath. MEDICAL HISTORY : Cardiovascular disease. Chronic obstructive pulmonary disease. Diabetes mellitus type II. SURGICAL HISTORY : Appendectomy. ENCOUNTER: Initial ACUITY: 1 day PAIN SCORE: 0/10 LOCATION: Bilateral chest FINDINGS: A single view of the chest demonstrates the lungs to be symmetrically aerated without evidence of mas s, infiltrate or effusion. The cardiomediastinal contours are unremarkable. Osseous structures are intact. CONCLUSION: Normal examination. Anant Andrews MD on December 31, 2017 at 9:39 Board Certified Radiologist. This report was verified electronically.
[2017-12-31 09:48] LABS: ALBUMIN 3.5 GM/DL (3.4-5.0); ALKALINE PHOSPHATASE 135 U/L (45-117); ALT (GPT) 96 U/L (12-78); AST (GOT) 30 U/L (15-37); BICARBONATE 22.9 MEQ/L (21.0-32.0); BLOOD UREA NITROGEN 16 MG/DL (7-18); CALCIUM 9.2 MG/DL (8.5-10.1); CHLORIDE 102 MEQ/L (98-107); CREATININE 1.07 MG/DL (0.60-1.30); GLOMERULAR FILTRATION RATE 72 ML/MIN (>89); GLUCOSE,RANDOM 308 MG/DL (74-106); MAGNESIUM 1.8 MG/DL (1.5-2.5); SODIUM (NA) 138 MEQ/L (136-145); TOTAL BILIRUBIN ADULT 0.6 MG/DL (0.2-1.0); TOTAL PROTEIN 6.5 GM/DL (6.4-8.2)
[2017-12-31 10:30] LABS: BANDS 3 % (0-6); LYMPHOCYTES 12 % (9-44); MONOCYTES 7 % (0-8); NEUTROPHIL # MANUAL DIFF 12.6 TH/MM3 (1.8-7.7); POLYS (SEG NEUTROPHILS) 78 % (16-70)
[2017-12-31] MEDS ORDERED: LORazepam 2 MG/ML VIAL IV PUSH ONE (10:30)
[2017-12-31] MEDS: RESP: ALBUTEROL 2.5 MG/3 ML NEB (SCH) INH (10:35)
[2017-12-31 10:52] LABS: TROPONIN I LESS THAN 0.02 NG/ML (0.02-0.05)
--- NOTE | 2017-12-31 12:16 | EKG ---
Date Performed: 12/31/2017 Time Performed: 10:28:33 PTAGE: 52 years EKG: Sinus rhythm VOLTAGE CRITERIA FOR LVH NONSPECIFIC ST ELEVATION ABNORMAL ECG INTERPRETATION BASED ON A DEFAULT AGE OF 40 YEARS PREVIOUS TRACING : 12/31/2017 10.27 DOCTOR: Anant Kirkpatrick Interpretating Date/Time 12/31/2017 12:15:48
--- NOTE | 2017-12-31 12:17 | EKG ---
Date Performed: 12/31/2017 Time Performed: 08:57:31 PTAGE: 52 years EKG: SINUS TACHYCARDIA POSSIBLE LEFT ATRIAL ENLARGEMENT POSSIBLE LEFT VENTRICULAR HYPERTROPHY NO NSPECIFIC T-WAVE ABNORMALITY ABNORMAL ECG INTERPRETATION BASED ON A DEFAULT AGE OF 40 YEARS NO PREVIOUS TRACING DOCTOR: Anant Kirkpatrick Interpretating Date/Time 12/31/2017 12:17:40
[2017-12-31] MEDS ORDERED: BISACODYL 10 MG SUPP RECTAL PRN (12:30)
[2017-12-31] MEDS ORDERED: NALOXONE HCL 0.4 MG/ML AMP IV PUSH PRN (12:30)
[2017-12-31] MEDS ORDERED: SODIUM CHLORIDE 0.9% FLUSH 10 ML FLUSH IV FLUSH PRN (12:30)
[2017-12-31] MEDS ORDERED: SENNOSIDES 8.6 MG TAB PO PRN (12:30)
[2017-12-31] MEDS ORDERED: LACTULOSE SYRUP 20 GM/30 ML CUP PO PRN (12:30)
[2017-12-31] MEDS ORDERED: MAGNESIUM HYDROXIDE SUSP 30 ML CUP PO PRN (12:30)
[2017-12-31] MEDS ORDERED: ALBUTEROL SULFATE 90 MCG/ACT HFA 8 GM INHALER INH PRN (12:30)
[2017-12-31] MEDS ORDERED: ONDANSETRON HCL 4 MG/2 ML VIAL IVP PRN (12:30)
[2017-12-31] MEDS ORDERED: ACETAMINOPHEN 325 MG TAB PO PRN (12:30)
[2017-12-31] MEDS: SODIUM CHLORIDE 0.9% FLUSH 10 ML FLUSH IV FLUSH SCH ×2 (12:30→22:00)
[2017-12-31] MEDS: DILTIAZEM-CD 180 MG CAP ER PO SCH (13:22)
[2017-12-31] MEDS: metFORMIN HCL 500 MG TAB PO SCH ×2 (13:22→17:21)
[2017-12-31] MEDS: FUROSEMIDE 40 MG TAB PO SCH (13:22)
[2017-12-31] MEDS: FERROUS SULFATE 325 MG (65 MG ELEMENTAL IRON) TAB PO SCH ×2 (13:22→21:54)
[2017-12-31] MEDS: methylPREDNISolone SOD SUCC 125 MG/2 ML VIAL IV PUSH SCH ×2 (13:23→21:55)
[2017-12-31] MEDS: LORazepam 0.5 MG TAB PO SCH ×2 (13:23→21:53)
[2017-12-31] MEDS: APIXABAN 5 MG TABLET PO SCH ×2 (13:23→21:52)
[2017-12-31] MEDS: DOCUSATE SODIUM 50 MG/SENNA 8.6 MG TAB PO SCH ×2 (13:24→21:54)
[2017-12-31] MEDS ORDERED: RESP: ALBUTEROL 2.5 MG/3 ML NEB (PRN) INH (13:30)
[2017-12-31] MEDS ORDERED: GLUCAGON 1 MG/ML VIAL OTHER PRN (13:45)
[2017-12-31] MEDS ORDERED: DEXTROSE 50% IN WATER 50 ML VIAL(D50) IV PUSH PRN (13:45)
[2017-12-31] MEDS: BUDESONIDE-FORMOTEROL 160/4.5 MCG INHALER INH SCH ×2 (14:00→21:55)
[2017-12-31] MEDS: PANTOPRAZOLE SOD 40 MG DELAYED RELEASE TAB PO SCH (15:22)
[2017-12-31] MEDS: PARoxetine HCL 20 MG TAB PO SCH (15:22)
[2017-12-31] MEDS: POTASSIUM CHLORIDE 20 MEQ CONTROLLED RELEASE TAB PO SCH ×2 (15:22→21:53)
[2017-12-31] MEDS: TAMSULOSIN HCL 0.4 MG CAP PO SCH (15:22)
[2017-12-31] MEDS: NYSTATIN SUSP 500,000 U/5 ML CUP SWISH-SWAL SCH ×3 (15:22→21:55)
--- NOTE | 2017-12-31 17:12 | MH ---
cc: Myron Woodward MD DATE OF ADMISSION: 12/31/2017 CHIEF COMPLAINT: Cough, shortness of breath and wheezing. HISTORY OF PRESENT ILLNESS: This is a very pleasant 52-year-old male with past medical and surgical history significant for history of right leg DVT and leg swelling, history of pulmonary embolism, is on Eliquis, history of arthritis, which is severe, asthma, COPD, anxiety, sinus tachycardia, depression, BPH, cataract surgery recently, had a history of GERD, history of bilateral hip surgery and hip replacement, appendectomy, tonsillectomy. He has multiple hospital admissions and intubation in the past. Currently, he is on BiPAP, presented with acute respiratory failure and COPD/asthma exacerbation. He has chronic obstructive pulmonary disease and see Dr. Hernandez on a regular basis, and he has a lot of wheezing. He has a family member who had a lung transplant because of the lung disease. He came to my office yesterday and he was seen and given medication, but he ended up going to the [place] ER for severe shortness of breath. When I examined the patient, patient was on BiPAP, unable to talk. , Rita, was sitting at the bedside, provided me the history. Other than that, nothing significant. PAST MEDICAL AND SURGICAL HISTORY: As dictated above. SOCIAL HISTORY: Does not smoke, drink or take any recreational drug. Lives at home with his . He is and he is unemployed. ALLERGIES: DOXYCYCLINE, MINOCYCLINE, TETRACYCLINE, TIGECYCLINE, MEPERIDINE. MEDICATIONS: Include Proventil inhaler 2 puffs inhalation q. 4 hours, potassium chloride 20 mEq p.o. daily, Flomax 0.4 mg p.o. daily, Glucophage 500 mg p.o. b.i.d., ferrous sulfate 325 mg twice a day, furosemide 40 mg twice a day, Eliquis 5 mg twice a day, Ativan 0.5 mg twice a day, omeprazole 40 mg p.o. daily, diltiazem 360 mg p.o. daily, Symbicort 160/4.5 two puffs inhalation every 12 hours, Singulair 10 mg p.o. daily, Lipitor 20 mg p.o. daily. REVIEW OF SYSTEMS: The patient is on BiPAP. All the review of system provided by the at the bedside. He is in severe shortness of breath, cough, wheezing, in acute respiratory failure and also has mild right leg swelling. PHYSICAL EXAMINATION: GENERAL: This is a 52-year-old male, lying on the bed with a BiPAP on and in acute respiratory distress. VITAL SIGNS: No temperature recorded, blood pressure 145/87, heart rate initially was 124, now it is 87, O2 saturation 97% on BiPAP 40% FIO2. HEENT: Normocephalic, EOMI. PERRL. The patient is on BiPAP. NECK: Supple. No visible thyromegaly or neck mass. Trachea central. CARDIOVASCULAR: Regular rate and rhythm. RESPIRATORY: Bilateral severe wheezing and decreased air entry bilaterally. ABDOMEN: Protuberant, obese. Bowel sounds audible in all 4 quadrants. EXTREMITIES: Right leg swelling. Full range of motion of all extremities. No cyanosis or clubbing. NEUROLOGIC: Awake, alert and oriented x 4. No focal deficits. SKIN: Warm and dry. PSYCHIATRIC: Patient is cooperative. Mood and affect are normal. LABORATORY DATA: Include CBC. WBC count 15.5, high, hemoglobin 14.0, hematocrit 41.7, neutrophils 86.2, high, lymphs 47.3, low. ABG was done and shows a pH of 7.56 with pCO2 of 24 with pO2 of 111, base excess -1.0, bicarbonate 21. BMP shows totally unremarkable, except for GFR 72, low, glucose at 308, high. ALT is high, 96. Alkaline phosphatase high, 135. Total creatinine kinase 95. Troponin I less than 0.02. Total protein 6.5, normal. Albumin 3.5, normal. PT 10.0, INR 1.0, aPTT 21.8. Blood cultures x 2 done, negative so far. Influenza A and B done, negative so far. Chest x-ray done shows normal examination. ASSESSMENT AND PLAN: This is a 52-year-old male who came to the ER, diagnosed with: 1. Acute respiratory failure secondary to chronic obstructive pulmonary disease/asthma exacerbation. The patient is on DuoNeb nebulization. The patient also on Solu-Medrol 60 mg every 4 hour. The patient is also on Symbicort inhaler, Singulair 10 mg p.o. daily. Pulmonary consulted. Further recommendation per pulmonary. 2. History of COPD/asthma. Continue home medication. 3. History of benign prostatic hypertrophy. Continue with Flomax 0.4 mg p.o. daily. 4. History of hyperlipidemia. Continue with Lipitor 40 mg p.o. daily. 5. Diabetes mellitus. ADA 1800 calorie diet. NovoLog low dose sliding scale. Check blood sugar with meals and at bedtime. Continue Metformin 500 mg twice a day. We will monitor blood sugar closely. 6. History of deep venous thrombosis and pulmonary embolism. The patient is on Eliquis 5 mg twice a day. 7. History of hypertension. Continue with diltiazem 360 mg p.o. daily. 8. Iron deficiency anemia. The patient is on ferrous sulfate 325 mg twice a day. 9. Leg edema and generalized edema. The patient is on Lasix 40 mg daily. 10. Anxiety. Continue lorazepam 0.5 mg twice a day. 11. Gastroesophageal reflux disease. Protonix 40 mg p.o. daily. 12. Depression. Continue with Paxil 20 mg p.o. daily. 13. History of oral thrush. The patient is on nystatin 5 mL 4 times a day. 14. Deep venous thrombosis prophylaxis, Eliquis 5 mg twice a day. 15. Gastrointestinal prophylaxis, Protonix 40 mg p.o. daily. 16. Check CBC, CMP in the morning. We are going to manage the patient on a daily basis and make recommendations on daily basis. Myron Woodward MD EA/ELPIDIO , 04:20 PM , 05:11 PM
[2017-12-31] MEDS: INSULIN ASPART SUPPLEMENTAL SCALE SQ SCH ×2 (17:20→21:56)
--- NOTE | 2017-12-31 20:06 | MB ---
cc: Mary Hernandez MD, [place] W MD DATE: 12/31/2017 REASON FOR CONSULTATION: Asthma exacerbation. HISTORY OF PRESENT ILLNESS: The patient is a 52-year-old male with a past medical history of bronchial asthma of severe degree requiring multiple hospitalizations as well as history of deep venous thrombosis and pulmonary emboli. The patient is admitted with increasing shortness of breath, increasing chest wheeze which he tells me has been worsening throughout the night and, in the morning, decided to enter the emergency room where he was hospitalized with exacerbation of bronchial asthma. PAST MEDICAL HISTORY: Essentially as above including bronchial asthma, DVT, pulmonary embolus, septic arthritis of the right hip which required surgery, hyperlipidemia, acid reflux and glucose intolerance FAMILY HISTORY: Noncontributory. MEDICATIONS AT HOME: 1. Albuterol as needed. 2. Symbicort twice a day. 3. Eliquis. 4. Ferrous sulfate 5. Glucophage 6. Lasix. 7. Omeprazole 8. Singulair 10 mg daily 9. Lipitor SYSTEMS REVIEW: A 12-point review of systems as per HPI and past history, otherwise negative. PHYSICAL EXAMINATION: GENERAL: Patient is alert. VITAL SIGNS: Temperature 98, pulse 80, respirations 20, blood pressure 140/80. HEENT: Unremarkable. Eyes without icterus. NECK: Without adenopathy or thyroid enlargement. CHEST: Scattered wheeze bilaterally. CARDIAC: PMI distant. S1, S2 audible, 1/6 ejection systolic murmur left sternal border. ABDOMEN: Distended. Bowel sounds audible. EXTREMITIES: No clubbing, cyanosis or edema. LABORATORY DATA: White count 15,000, hemoglobin 14, hematocrit 41. Arterial blood gas upon presentation pH 756, pCO2 of 24, pO2 of 111. INR 1.0, sodium 138, potassium 3.8, BUN 16, creatinine 1.0. IMAGING STUDIES Chest x-ray is normal. IMPRESSION: 1. Asthma exacerbation. 2. Deep venous thrombosis pulmonary embolism by history. 3. Glucose intolerance. 4. Acid reflux. PLAN: The patient is admitted to the hospital. Oxygen therapy, bronchodilator therapy is given together with intravenous steroids. The patient's oxygenation and ventilation are adequate at this time. We will follow his course closely along with you and, depending on progress, would proceed further. I do thank you for asking me to partake in Mr. Link's care. MD GODFREY Bernard/ , 07:41 PM , 08:04 PM
[2017-12-31] MEDS ORDERED: INSULIN ASPART 1,000 UNITS/10 ML VIAL SQ ONE (21:15)
[2017-12-31] MEDS: ATORVASTATIN 40 MG TAB PO SCH (21:54)
[2017-12-31] MEDS: MONTELUKAST SODIUM 10 MG TAB PO SCH (21:54)
[2017-12-31] MEDS: RESP: ALBUTEROL 2.5 MG/IPRATROPIUM 0.5 MG NEB (PRN) NEB (23:17)
[2018-01-01] VITALS (21 sets, daily range): BP systolic 139–163; BP diastolic 80–100; PULSE 87–114; RESP 18–20; TEMP 97.7–98.9; O2SAT 0–98
[2018-01-01] MEDS: LOW DOSE INSULIN NOVOLOG SUPPLEMENTAL SCALE SQ SCH
[2018-01-01] MEDS: RESP: ALBUTEROL 2.5 MG/IPRATROPIUM 0.5 MG NEB (PRN) NEB ×3 (03:11→11:14)
[2018-01-01] MEDS: methylPREDNISolone SOD SUCC 125 MG/2 ML VIAL IV PUSH SCH (05:21)
[2018-01-01 06:43] LABS: AUTOMATED NEUTROPHIL # 13.9 TH/MM3 (1.8-7.7); BASOPHIL % 0.2 % (0.0-2.0); HEMATOCRIT 38.9 % (39.0-51.0); HEMOGLOBIN 13.1 GM/DL (13.0-17.0); LYMPH % 3.8 % (9.0-44.0); LYMPHOCYTE # 0.6 TH/MM3 (1.0-4.8); MEAN CELL VOLUME 86.3 FL (80.0-100.0); MEAN CORPUSCULAR HGB CONC 33.7 % (32.0-36.0); MEAN PLATELET VOLUME 8.2 FL (7.0-11.0); MONO % 2.7 % (0.0-8.0); MONOCYTE # 0.4 TH/MM3 (0-0.9); NEUT % 93.3 % (16.0-70.0); PLATELET COUNT 174 TH/MM3 (150-450); RED BLOOD COUNT 4.51 MIL/MM3 (4.50-5.90); RED CELL DISTRIBUTION WIDTH 16.7 % (11.6-17.2); WHITE BLOOD COUNT 14.9 TH/MM3 (4.0-11.0)
[2018-01-01 07:07] LABS: ALBUMIN 3.6 GM/DL (3.4-5.0); ALT (GPT) 81 U/L (12-78); AST (GOT) 9 U/L (15-37); BICARBONATE 21.2 MEQ/L (21.0-32.0); BLOOD UREA NITROGEN 20 MG/DL (7-18); CALCIUM 9.4 MG/DL (8.5-10.1); CHLORIDE 99 MEQ/L (98-107); CREATININE 1.39 MG/DL (0.60-1.30); GLOMERULAR FILTRATION RATE 53 ML/MIN (>89); GLUCOSE,RANDOM 422 MG/DL (74-106); SODIUM (NA) 138 MEQ/L (136-145)
[2018-01-01 07:08] LABS: ALKALINE PHOSPHATASE 116 U/L (45-117); TOTAL BILIRUBIN ADULT 0.5 MG/DL (0.2-1.0); TOTAL PROTEIN 6.3 GM/DL (6.4-8.2)
[2018-01-01 07:38] LABS: BANDS 1 % (0-6); LYMPHOCYTES 5 % (9-44); METAMYELOCYTES 1 % (0-1); MONOCYTES 4 % (0-8); MYELOCYTES 2 % (0-0); NEUTROPHIL # MANUAL DIFF 13.6 TH/MM3 (1.8-7.7); POLYS (SEG NEUTROPHILS) 87 % (16-70)
--- NOTE | 2018-01-01 08:39 | HHI.PR ---
Subjective Remarks alert still wheezing but less SOB with mild exertion Objective Vital Signs Date Time Temp Pulse Resp B/P (MAP) Pulse Ox O2 Delivery O2 Flow Rate FiO2 01/01/18 07:32 94 Nasal Cannula 3.00 01/01/18 06:31 104 01/01/18 05:07 92 01/01/18 04:00 96 01/01/18 03:26 98.0 87 20 145/80 (101) 97 01/01/18 03:00 87 01/01/18 02:00 90 01/01/18 01:16 97 01/01/18 00:41 97 12/31/17 23:18 96 Nasal Cannula 3.00 12/31/17 23:17 97.6 85 19 128/72 (90) 97 12/31/17 23:00 86 12/31/17 22:00 96 12/31/17 21:00 88 12/31/17 20:27 97.4 88 18 137/80 (99) 98 12/31/17 20:00 84 12/31/17 19:36 99 40 12/31/17 19:00 89 12/31/17 15:00 98.6 92 16 141/85 (103) 98 12/31/17 14:00 97 40 12/31/17 11:40 96 40 12/31/17 09:38 87 24 145/87 (106) 97 BiPAP 12/31/17 09:12 96 BiPAP 12/31/17 09:11 97 40 12/31/17 09:09 124 34 156/117 (130) 96 I/O 12/31/17 12/31/17 12/31/17 01/01/18 01/01/18 01/01/18 07:00 15:00 23:00 07:00 15:00 23:00 Intake Total 1100 ml 500 ml 960 ml Output Total 1500 ml 2400 ml Balance 1100 ml -1000 ml -1440 ml Intake Oral 500 ml 960 ml IV Total 1100 ml Output Urine Total 1500 ml 2400 ml Result Diagram: 01/01/1852701/01/18527 Medications and IVs GENERAL: SKIN: Warm and dry. HEAD: Atraumatic. Normocephalic. EYES: Pupils equal and round. No scleral icterus. No injection or drainage. ENT: No nasal bleeding or discharge. Mucous membranes pink and moist. NECK: Trachea midline. No JVD. CARDIOVASCULAR: Regular rate and rhythm. RESPIRATORY: No accessory muscle use. bilateral wheeze to auscultation. Breath sounds equal bilaterally. GASTROINTESTINAL: Abdomen soft, non-tender, nondistended. Hepatic and splenic margins not palpable. MUSCULOSKELETAL: Extremities without clubbing, cyanosis, or edema. No obvious deformities. NEUROLOGICAL: Awake and alert. No obvious cranial nerve deficits. Motor grossly within normal limits. Five out of 5 muscle strength in the arms and legs. Normal speech. PSYCHIATRIC: Appropriate mood and affect; insight and judgment normal. Assessment and Plan Assessment and Plan ass: asthma exacerrbation plan O2 BRONCHODILATORS INCREASE ACTIVITY Mary Hernandez MD Jan 01, 2018 08:39
[2018-01-01] MEDS ORDERED: HIGH DOSE INSULIN NOVOLOG SUPPLEMENTAL SCALE SQ SCH (09:41)
[2018-01-01] MEDS ORDERED: INSULIN ASPART 1,000 UNITS/10 ML VIAL SQ ONE ×2 (09:45→12:00)
[2018-01-01] MEDS: BUDESONIDE-FORMOTEROL 160/4.5 MCG INHALER INH SCH ×2 (10:20→20:25)
[2018-01-01] MEDS: DILTIAZEM-CD 180 MG CAP ER PO SCH (10:20)
[2018-01-01] MEDS: DOCUSATE SODIUM 50 MG/SENNA 8.6 MG TAB PO SCH ×2 (10:20→20:17)
[2018-01-01] MEDS: PANTOPRAZOLE SOD 40 MG DELAYED RELEASE TAB PO SCH (10:21)
[2018-01-01] MEDS: PARoxetine HCL 20 MG TAB PO SCH (10:21)
[2018-01-01] MEDS: TAMSULOSIN HCL 0.4 MG CAP PO SCH (10:21)
[2018-01-01] MEDS: POTASSIUM CHLORIDE 20 MEQ CONTROLLED RELEASE TAB PO SCH ×2 (10:21→20:18)
[2018-01-01] MEDS: FUROSEMIDE 40 MG TAB PO SCH (10:21)
[2018-01-01] MEDS: APIXABAN 5 MG TABLET PO SCH ×2 (10:21→20:18)
[2018-01-01] MEDS: LORazepam 0.5 MG TAB PO SCH ×2 (10:21→20:17)
[2018-01-01] MEDS: metFORMIN HCL 500 MG TAB PO SCH (10:21)
[2018-01-01] MEDS: NYSTATIN SUSP 500,000 U/5 ML CUP SWISH-SWAL SCH ×4 (10:22→20:17)
[2018-01-01] MEDS: FERROUS SULFATE 325 MG (65 MG ELEMENTAL IRON) TAB PO SCH ×2 (10:22→20:16)
[2018-01-01] MEDS: SODIUM CHLORIDE 0.9% FLUSH 10 ML FLUSH IV FLUSH SCH ×2 (10:22→20:18)
[2018-01-01] MEDS ORDERED: FUROSEMIDE 40 MG/4 ML VIAL ONE (11:22)
--- NOTE | 2018-01-01 11:42 | HHI.PR ---
Subjective History of Present Illness Patient feel worse have sever SOB/ Wheezing started on Bipap have high blood sugar above 600 mg/dl discussed with Dr Martinez critical care physician Transferred to ICU Started on Insulin drip check Lab in AM Discussed with patient and and RN on duty. Review of Systems Constitutional Constitutional: Fatigue, Weakness Pulmonary Respiratory: Coughing, Shortness of Breath, Wheezing Allergic/Immunologic Allergic/Immunologic: Asthma Vitals/Results Vital Signs Vital Signs Date Time Temp Pulse Resp B/P (MAP) Pulse Ox O2 Delivery O2 Flow Rate FiO2 01/01/18 11:29 40 40 01/01/18 07:32 94 Nasal Cannula 3.00 01/01/18 06:31 104 01/01/18 05:07 92 01/01/18 04:00 96 01/01/18 03:26 98.0 87 20 145/80 (101) 97 01/01/18 03:00 87 01/01/18 02:00 90 01/01/18 01:16 97 01/01/18 00:41 97 12/31/17 23:18 96 Nasal Cannula 3.00 12/31/17 23:17 97.6 85 19 128/72 (90) 97 12/31/17 23:00 86 12/31/17 22:00 96 12/31/17 21:00 88 12/31/17 20:27 97.4 88 18 137/80 (99) 98 12/31/17 20:00 84 12/31/17 19:36 99 40 12/31/17 19:00 89 12/31/17 15:00 98.6 92 16 141/85 (103) 98 12/31/17 14:00 97 40 CBC/BMP: 01/01/18 0528 01/01/18 0528 Lab Results Laboratory Tests Test 12/31/17 21:20 01/01/18 05:28 01/01/18 11:30 Random Glucose 614 MG/DL 422 MG/DL White Blood Count 14.9 TH/MM3 Red Blood Count 4.51 MIL/MM3 Hemoglobin 13.1 GM/DL Hematocrit 38.9 % Mean Corpuscular Volume 86.3 FL Mean Corpuscular Hemoglobin 29.0 PG Mean Corpuscular Hemoglobin Concent 33.7 % Red Cell Distribution Width 16.7 % Platelet Count 174 TH/MM3 Mean Platelet Volume 8.2 FL Neutrophils (%) (Auto) 93.3 % Lymphocytes (%) (Auto) 3.8 % Monocytes (%) (Auto) 2.7 % Eosinophils (%) (Auto) 0.0 % Basophils (%) (Auto) 0.2 % Neutrophils # (Auto) 13.9 TH/MM3 Lymphocytes # (Auto) 0.6 TH/MM3 Monocytes # (Auto) 0.4 TH/MM3 Eosinophils # (Auto) 0.0 TH/MM3 Basophils # (Auto) 0.0 TH/MM3 CBC Comment AUTO DIFF Differential Total Cells Counted 100 Neutrophils % (Manual) 87 % Band Neutrophils % 1 % Lymphocytes % 5 % Monocytes % 4 % Neutrophils # (Manual) 13.6 TH/MM3 Metamyelocytes 1 % Myelocytes 2 % Differential Comment FINAL DIFF MANUAL Platelet Estimate NORMAL Platelet Morphology Comment NORMAL Red Cell Morphology Comment NORMAL Blood Urea Nitrogen 20 MG/DL Creatinine 1.39 MG/DL Total Protein 6.3 GM/DL Albumin 3.6 GM/DL Calcium Level 9.4 MG/DL Alkaline Phosphatase 116 U/L Aspartate Amino Transf (AST/SGOT) 9 U/L Alanine Aminotransferase (ALT/SGPT) 81 U/L Total Bilirubin 0.5 MG/DL Sodium Level 138 MEQ/L Potassium Level 3.5 MEQ/L Chloride Level 99 MEQ/L Carbon Dioxide Level 21.2 MEQ/L Anion Gap 18 MEQ/L Estimat Glomerular Filtration Rate 53 ML/MIN Blood Gas Puncture Site LT RADIAL Blood Gas Patient Temperature 98.6 Blood Gas HCO3 18 mmol/L Blood Gas Base Excess -5.8 mmol/L Blood Gas Oxygen Saturation 95 % Arterial Blood pH 7.41 Arterial Blood Partial Pressure CO2 29 mmHg Arterial Blood Partial Pressure O2 101 mmHg Arterial Blood Oxygen Content 18.7 Vol % Arterial Blood Carboxyhemoglobin 0.8 % Arterial Blood Methemoglobin 1.5 % Blood Gas Hemoglobin 13.9 G/DL Oxygen Delivery Device MASK Blood Gas Liter Flow 8 L/M Physical Exam General General Appearance: Well Developed, Well Nourished, Anxious Appearance Remarks Acute respiratory distress on BIPAP. Eyes Eye Exam: Pupils Equal, Pupils Reactive, Sclera White, Extraocular Movement Intact Throat Throat Remarks Oral Thrush. Neck Neck Exam: Neck Supple, Trachea Midline Pulmonary Resp Exam: Diminished Breath Sounds, Labored Resp Remarks Bilateral wheezing and crackles. Cardiology CV Exam: Normal Sinus Rhythm, Tachycardia Gastrointestinal/Abdomen GI Exam: Soft, Non-Tender, Bowel Sounds Present, Distended Musculoskeletal MS Exam: Joints Intact Integumentary Skin Exam: Warm, Dry, Intact Extremeties Extremities Exam: Moderate Edema, Pitting Edema Neurologic Neuro Exam: Alert, Awake, Oriented, Moving All Extremities, No Focal Deficits Psychiatric Psych Exam: Appropriate Responses VTE Prophylaxis VTE Remarks Eliquis PUD Prophylasis PUD Prophylaxis: Protonix Assessment/Plan Assessment/Plan ASSESSMENT AND PLAN: This is a 52-year-old male who came to the ER, diagnosed with: 1. Acute respiratory failure secondary to chronic obstructive pulmonary disease/asthma exacerbation. on BIPAP Now critical care consulted in ICU Now. The patient is on DuoNeb nebulization. The patient also on Solu-Medrol 60 mg every 4 hour. The patient is also on Symbicort inhaler, Singulair 10 mg p.o. daily. Pulmonary input noted. Further recommendation per pulmonary. 2. History of COPD/asthma. Continue home medication. 3. History of benign prostatic hypertrophy. Continue with Flomax 0.4 mg p.o. daily. 4. History of hyperlipidemia. Continue with Lipitor 40 mg p.o. daily. 5. Diabetes mellitus. ADA 1800 calorie diet. NovoLog low dose sliding scale. Check blood sugar with meals and at bedtime. Continue Metformin 500 mg twice a day. We will monitor blood sugar closely. Have High blood sugar above 600 started on insulin drip in ICU Now. 6. History of deep venous thrombosis and pulmonary embolism. The patient is on Eliquis 5 mg twice a day. 7. History of hypertension. Continue with diltiazem 360 mg p.o. daily. 8. Iron deficiency anemia. The patient is on ferrous sulfate 325 mg twice a day. 9. Leg edema and generalized edema. The patient is on Lasix 40 mg daily. 10. Anxiety. Continue lorazepam 0.5 mg twice a day. 11. Gastroesophageal reflux disease. Protonix 40 mg p.o. daily. 12. Depression. Continue with Paxil 20 mg p.o. daily. 13. History of oral thrush. The patient is on nystatin 5 mL 4 times a day. 14. Deep venous thrombosis prophylaxis, Eliquis 5 mg twice a day. 15. Gastrointestinal prophylaxis, Protonix 40 mg p.o. daily. 16. Check CBC, CMP in the morning. We are going to manage the patient on a daily basis and make recommendations on daily basis. Discussed Condition with: Patient, Spouse Myron Woodward MD Jan 01, 2018 11:42
[2018-01-01] MEDS ORDERED: MISC INFORMATION OTHER ONE (12:00)
[2018-01-01] MEDS: FUROSEMIDE 40 MG/4 ML VIAL IV PUSH SCH ×2 (12:00→20:16)
[2018-01-01] MEDS ORDERED: DEXTROSE 50% IN WATER 50 ML VIAL(D50) IV PUSH PRN ×2 (12:00→23:00)
--- NOTE | 2018-01-01 12:21 | PD.CONS ---
[facility] Service Critical Care Medicine Consult Requested By Dr. Woodward Reason for Consult Worsening respiratory distress Primary Care Physician Myron Woodward MD History of Present Illness 52-year-old gentleman with history of severe asthma, with multiple exacerbations , requiring multiple intubations in the past last one approximately one year ago , PE and DVT on chronic anticoagulation, now admitted yesterday with worsening shortness of breath, wheezing and nonproductive cough. Patient was admitted on the medicine hill, he was placed on BiPAP, started on Solu-Medrol, bronchodilators and he was evaluated by pulmonology. Despite all the treatment , patient did not improve and earlier today the rapid response was called for worsening respiratory status. Patient was seen immediately on ICU arrival, awake following commands, feeling a little better but not significantly improved since admission. Patient denies any chest pain, palpitations, or any other complaints. Review of Systems Constitutional: COMPLAINS OF: Diaphoretic episodes, Fever, Chills Eyes: DENIES: Blurred vision, Diplopia, Vision loss Ears, nose, mouth, throat: DENIES: Vertigo Respiratory: COMPLAINS OF: Cough, Wheezing, Shortness of breath, DENIES: Sputum production Cardiovascular: COMPLAINS OF: Lower Extremity Edema, DENIES: Chest pain, Palpitations Gastrointestinal: DENIES: Abdominal pain, Black stools, Diarrhea, Nausea, Vomiting Genitourinary: COMPLAINS OF: Urinary frequency Musculoskeletal: DENIES: Stiffness, Joint Swelling Hematologic/lymphatic: DENIES: Bruising Psychiatric: COMPLAINS OF: Anxiety Past Family Social History Allergies: Coded Allergies: doxycycline (Unverified Allergy, Severe, throat swells, 12/15/17) minocycline (Unverified Allergy, Severe, throat swells, 12/15/17) tetracycline (Verified Allergy, Severe, Anaphylaxis, 12/15/17) tigecycline (Unverified Allergy, Severe, throat swells, 12/15/17) meperidine (Unverified Allergy, Intermediate, hallucinations, 12/15/17) Past Medical History Severe asthma DVT/PE on anticoagulation Depression BPH Diabetes H/o hip arthritis Anxiety Hyperlipidemia Past Surgical History Cataract surgery History of bilateral hip surgery and hip replacement Appendectomy Tonsillectomy Reported Medications Reported Meds & Active Scripts Active [Nystatin Liq] 5 ML Susp 5 Ml SWISH-SWAL QID Proventil Hfa 6.7 GM Inh (Albuterol Sulfate) 90 Mcg/Act Aer 2 Puff INH Q4-6H PRN Potassium Chloride ER (Potassium Chloride) 20 Meq Tab 20 Meq PO BID Flomax (Tamsulosin HCl) 0.4 Mg Cap 0.4 Mg PO DAILY Glucophage (Metformin HCl) 500 Mg Tab 500 Mg PO BIDPC Ferosul (Ferrous Sulfate) 325 Mg Tablet 325 Mg PO BID Furosemide 40 Mg Tab 40 Mg PO DAILY Eliquis (Apixaban) 5 Mg Tab 5 Mg PO BID Ativan (Lorazepam) 0.5 Mg Tab 0.5 Mg PO BID Reported Paroxetine (Paroxetine HCl) 20 Mg Tab 20 Mg PO DAILY Pantoprazole (Pantoprazole Sodium) 40 Mg Tab 40 Mg PO DAILY Prednisone 10 Mg Tab 10 Mg PO BID Matzim LA (Diltiazem ER 24 HR) 360 Mg Can 360 Mg PO DAILY Symbicort Inh (Budesonide/Formoterol Fumarate) 160-4.5 Mcg/Act Aero 2 Puff INH Q12HR Singulair (Montelukast Sodium) 10 Mg Tab 10 Mg PO HS Lipitor (Atorvastatin Calcium) 20 Mg Tab 40 Mg PO HS Levalbuterol Neb (Levalbuterol HCl) 1.25 Mg/3 Ml Neb 1.25 Mg NEB BID PRN Active Ordered Medications Current Medications Medications (Trade) Dose Ordered Sig/Gabi Route Start Time Stop Time Status Last Admin (NS Flush) 2 ml UNSCH PRN IV FLUSH 12/31/17 12:30 (NS Flush) 2 ml BID IV FLUSH 12/31/17 12:30 01/01/18 10:22 (Tylenol) 650 mg Q4H PRN PO 12/31/17 12:30 (Zofran Inj) 4 mg Q6H PRN IVP 12/31/17 12:30 (Narcan Inj) 0.4 mg UNSCH PRN IV PUSH 12/31/17 12:30 (Clare-Colace) 1 tab BID PO 12/31/17 14:00 01/01/18 10:20 (Milk Of Magnesia Liq) 30 ml Q12H PRN PO 12/31/17 12:30 (Senokot) 17.2 mg Q12H PRN PO 12/31/17 12:30 (Dulcolax Supp) 10 mg DAILY PRN RECTAL 4/25/18 12:30 (Lactulose Liq) 30 ml DAILY PRN PO 12/31/17 12:30 (Proair Hfa Inh) 2 puff Q4HR PRN INH 12/31/17 12:30 (Eliquis) 5 mg BID PO 12/31/17 14:00 01/01/18 10:21 (Lipitor) 40 mg HS PO 12/31/17 21:00 12/31/17 21:54 (Symbicort 160-4.5 Mcg Inh) 2 puff Q12HR INH 12/31/17 14:00 01/01/18 10:20 (Cardizem Cd) 360 mg DAILY PO 12/31/17 14:00 01/01/18 10:20 (Ferrous Sulfate) 325 mg BID PO 12/31/17 14:00 01/01/18 10:22 (Ativan) 0.5 mg BID PO 12/31/17 14:00 01/01/18 10:21 (Singulair) 10 mg HS PO 12/31/17 21:00 12/31/17 21:54 (Protonix) 40 mg DAILY PO 12/31/17 14:00 01/01/18 10:21 (Paxil) 20 mg DAILY PO 12/31/17 14:00 01/01/18 10:21 (KCl) 20 meq BID PO 12/31/17 14:00 01/01/18 10:21 (Flomax) 0.4 mg DAILY PO 12/31/17 14:00 01/01/18 10:21 (Albuterol Neb) 2.5 mg BID NEB PRN INH 12/31/17 13:30 12/31/17 19:36 (Mycostatin Liq) 5 ml QID SWISH-SWAL 12/31/17 14:00 01/01/18 10:22 (Duoneb Neb) 1 ampule Q4HR NEB PRN NEB 12/31/17 19:45 01/01/18 11:14 (Lasix Inj) 40 mg BID IV PUSH 01/01/18 12:00 (Robitussin Dm 200-20 Mg/10 ml Liq) 10 ml QID PO 01/01/18 12:00 Insulin Human Regular 100 units/ Sodium Chloride 100 ml @ 0.5 mls/hr TITRATE PRN IV 01/01/18 12:00 01/01/18 12:31 (D50w (Vial) Inj) 50 ml UNSCH PRN IV PUSH 01/01/18 12:00 (SoluMEDROL INJ) 125 mg Q8HR IV PUSH 01/01/18 14:00 (Duoneb Neb) 1 ampule Q4HR NEB NEB 01/01/18 12:00 01/01/18 12:39 Azithromycin 500 mg/Sodium Chloride 250 ml @ 250 mls/hr Q24H IV 01/01/18 13:00 Family History Brother with pulmonary disease requiring lung transplant Social History Denies alcohol, denies tobacco, no drugs Physical Exam Vital Signs Vital Signs Date Time Temp Pulse Resp B/P (MAP) Pulse Ox O2 Delivery O2 Flow Rate FiO2 01/01/18 11:59 0 40 01/01/18 11:29 40 40 01/01/18 07:32 94 Nasal Cannula 3.00 01/01/18 06:31 104 01/01/18 05:07 92 01/01/18 04:00 96 01/01/18 03:26 98.0 87 20 145/80 (101) 97 01/01/18 03:00 87 01/01/18 02:00 90 01/01/18 01:16 97 01/01/18 00:41 97 12/31/17 23:18 96 Nasal Cannula 3.00 12/31/17 23:17 97.6 85 19 128/72 (90) 97 12/31/17 23:00 86 12/31/17 22:00 96 12/31/17 21:00 88 12/31/17 20:27 97.4 88 18 137/80 (99) 98 12/31/17 20:00 84 12/31/17 19:36 99 40 12/31/17 19:00 89 12/31/17 15:00 98.6 92 16 141/85 (103) 98 12/31/17 14:00 97 40 Physical Exam General - middle-aged gentleman, awake, ill-appearing, in mild to moderate respiratory distress HEENT - pupils equal, reactive, sclerae anicteric, neck supple, no nuchal rigidity, neck veins not distended, no carotid bruit CV - regular S1, S2, no murmurs, tachycardic Chest - wheezes bilateral, decreased air entry at bases, no crackles Abdomen - soft, non-tender, non-distended, BS present, no hepatomegaly, no splenomegaly Skin - no rashes, no cyanosis Extremities - warm and well perfused, trace edema over the right lower extremity , + peripheral pulses, no clubbing Neuro - awake alert and oriented, moves all extremities, motor 5 out of 5 Laboratory Laboratory Tests Test 12/31/17 21:20 01/01/18 05:28 01/01/18 11:30 Random Glucose 614 422 White Blood Count 14.9 Red Blood Count 4.51 Hemoglobin 13.1 Hematocrit 38.9 Mean Corpuscular Volume 86.3 Mean Corpuscular Hemoglobin 29.0 Mean Corpuscular Hemoglobin Concent 33.7 Red Cell Distribution Width 16.7 Platelet Count 174 Mean Platelet Volume 8.2 Neutrophils (%) (Auto) 93.3 Lymphocytes (%) (Auto) 3.8 Monocytes (%) (Auto) 2.7 Eosinophils (%) (Auto) 0.0 Basophils (%) (Auto) 0.2 Neutrophils # (Auto) 13.9 Lymphocytes # (Auto) 0.6 Monocytes # (Auto) 0.4 Eosinophils # (Auto) 0.0 Basophils # (Auto) 0.0 CBC Comment AUTO DIFF Differential Total Cells Counted 100 Neutrophils % (Manual) 87 Band Neutrophils % 1 Lymphocytes % 5 Monocytes % 4 Neutrophils # (Manual) 13.6 Metamyelocytes 1 Myelocytes 2 Differential Comment FINAL DIFF MANUAL Platelet Estimate NORMAL Platelet Morphology Comment NORMAL Red Cell Morphology Comment NORMAL Blood Urea Nitrogen 20 Creatinine 1.39 Total Protein 6.3 Albumin 3.6 Calcium Level 9.4 Alkaline Phosphatase 116 Aspartate Amino Transf (AST/SGOT) 9 Alanine Aminotransferase (ALT/SGPT) 81 Total Bilirubin 0.5 Sodium Level 138 Potassium Level 3.5 Chloride Level 99 Carbon Dioxide Level 21.2 Anion Gap 18 Estimat Glomerular Filtration Rate 53 Blood Gas Puncture Site LT RADIAL Blood Gas Patient Temperature 98.6 Blood Gas HCO3 18 Blood Gas Base Excess -5.8 Blood Gas Oxygen Saturation 95 Arterial Blood pH 7.41 Arterial Blood Partial Pressure CO2 29 Arterial Blood Partial Pressure O2 101 Arterial Blood Oxygen Content 18.7 Arterial Blood Carboxyhemoglobin 0.8 Arterial Blood Methemoglobin 1.5 Blood Gas Hemoglobin 13.9 Oxygen Delivery Device MASK Blood Gas Liter Flow 8 Date/Time Source Procedure Growth Status 12/31/17 09:00 Blood Peripheral Aerobic Blood Culture - Preliminary NO GROWTH IN 1 DAY Resulted 12/31/17 09:00 Blood Peripheral Anaerobic Blood Culture - Preliminary NO GROWTH IN 1 DAY Resulted 12/31/17 09:30 Nasal Aspirate Influenza Types A,B Antigen (STEFFANIE) - Final NEGATIVE FOR FLU A AND B ANTIGEN.... Complete Result Diagram: 01/01/1828 01/01/1828 Imaging Last Impressions Chest X-Ray 12/31/17 0852 Signed Impressions: Service Date/Time: Sunday, December 31, 2017 09:20 - CONCLUSION: Normal examination. Anant Andrews MD Assessment and Plan Assessment and Plan 1. Acute asthma exacerbation 2. Acute hypoxic respiratory 3. Uncontrolled diabetes 4. History of DVT/PE on anticoagulation 5. Hyperlipidemia 6. GERD 7. Anxiety 1. Observe in ICU 2. Continue BiPAP, increase IPAP to 18 3. Increase steroids to 125 every 8 hours 4. Bronchodilators every 4 hours 5. Start insulin drip and stop sliding scale and metformin 6. Azithromycin 7. Received Lasix with great urine output 8. Echocardiogram 9. Pulmonary following 10. Continue Eliquis 11. GI prophylaxis No family present at bedside. Plan was discussed in detail with the patient and he agrees. I spent 31 minutes of critical care time, excluding procedures, managing respiratory distress, severe hyperglycemia, fluids, steroids, reviewing data and ordering labs, discussing with nursing staff and patient. Nick Palacios MD Jan 01, 2018 12:21
[2018-01-01] MEDS: INSULIN REGULAR (IV INFUSION) 100 UNITS in SODIUM CHLORIDE 0.9% INJ 99 ML IV PRN ×2 (12:31→17:27)
[2018-01-01] MEDS: RESP: ALBUTEROL 2.5 MG/IPRATROPIUM 0.5 MG NEB (SCH) NEB ×3 (12:39→21:21)
[2018-01-01] MEDS: methylPREDNISolone SOD SUCC 40 MG/1 ML VIAL IV PUSH SCH ×2 (13:32→20:17)
[2018-01-01] MEDS: guaiFENesin/DEXTROMETHORPHAN 200 MG/20 MG/10 ML CUP PO SCH ×3 (13:33→20:17)
[2018-01-01] MEDS: AZITHROMYCIN INJ 500 MG in SODIUM CHLOR 0.9% 250 ML INJ 250 ML IV SCH (13:33)
[2018-01-01] MEDS: ATORVASTATIN 40 MG TAB PO SCH (20:17)
[2018-01-01] MEDS: MONTELUKAST SODIUM 10 MG TAB PO SCH (20:21)
[2018-01-01] MEDS ORDERED: CHLORHEXIDINE GLUCONATE 2 % 1 PACK (2 CLOTHS)(extra cloths) TOPICAL PRN (21:45)
[2018-01-01] MEDS ORDERED: GLUCAGON 1 MG/ML VIAL OTHER PRN (23:00)
[2018-01-02] VITALS (17 sets, daily range): BP systolic 139–157; BP diastolic 80–96; PULSE 82–109; RESP 14–22; TEMP 97.6–98.4; O2SAT 95–97
[2018-01-02] MEDS: RESP: ALBUTEROL 2.5 MG/IPRATROPIUM 0.5 MG NEB (SCH) NEB ×6 (00:36→21:14)
[2018-01-02] MEDS: LOW DOSE INSULIN NOVOLOG SUPPLEMENTAL SCALE SQ SCH (04:00)
[2018-01-02] MEDS: CHLORHEXIDINE GLUCONATE 2 % 1 PACK (2 CLOTHS)(taper/protocol) TOPICAL SCH (05:41)
[2018-01-02] MEDS: methylPREDNISolone SOD SUCC 40 MG/1 ML VIAL IV PUSH SCH ×3 (05:42→21:29)
[2018-01-02] MEDS: BUDESONIDE-FORMOTEROL 160/4.5 MCG INHALER INH SCH ×2 (05:43→21:18)
[2018-01-02 05:58] LABS: AUTOMATED NEUTROPHIL # 16.7 TH/MM3 (1.8-7.7); BASOPHIL % 0.1 % (0.0-2.0); HEMOGLOBIN 13.3 GM/DL (13.0-17.0); LYMPH % 2.9 % (9.0-44.0); LYMPHOCYTE # 0.5 TH/MM3 (1.0-4.8); MEAN CELL VOLUME 86.3 FL (80.0-100.0); MEAN CORPUSCULAR HEMOGLOBIN 28.6 PG (27.0-34.0); MEAN CORPUSCULAR HGB CONC 33.1 % (32.0-36.0); MONO % 3.8 % (0.0-8.0); MONOCYTE # 0.7 TH/MM3 (0-0.9); NEUT % 93.2 % (16.0-70.0); PLATELET COUNT 180 TH/MM3 (150-450); RED BLOOD COUNT 4.64 MIL/MM3 (4.50-5.90); RED CELL DISTRIBUTION WIDTH 17.1 % (11.6-17.2); WHITE BLOOD COUNT 17.9 TH/MM3 (4.0-11.0)
[2018-01-02 06:33] LABS: ALBUMIN 3.5 GM/DL (3.4-5.0); ALKALINE PHOSPHATASE 103 U/L (45-117); ALT (GPT) 72 U/L (12-78); AST (GOT) 13 U/L (15-37); BICARBONATE 23.3 MEQ/L (21.0-32.0); BLOOD UREA NITROGEN 25 MG/DL (7-18); CHLORIDE 99 MEQ/L (98-107); CREATININE 1.34 MG/DL (0.60-1.30); GLOMERULAR FILTRATION RATE 56 ML/MIN (>89); GLUCOSE,RANDOM 410 MG/DL (74-106); MAGNESIUM 2.5 MG/DL (1.5-2.5); SODIUM (NA) 138 MEQ/L (136-145); TOTAL BILIRUBIN ADULT 0.5 MG/DL (0.2-1.0); TOTAL PROTEIN 6.3 GM/DL (6.4-8.2)
[2018-01-02] MEDS ORDERED: LOW DOSE INSULIN NOVOLOG SUPPLEMENTAL SCALE SQ SCH (08:00)
[2018-01-02] MEDS: DILTIAZEM-CD 180 MG CAP ER PO SCH (08:02)
[2018-01-02] MEDS: NYSTATIN SUSP 500,000 U/5 ML CUP SWISH-SWAL SCH ×4 (08:02→21:17)
[2018-01-02] MEDS: PANTOPRAZOLE SOD 40 MG DELAYED RELEASE TAB PO SCH (08:02)
[2018-01-02] MEDS: guaiFENesin/DEXTROMETHORPHAN 200 MG/20 MG/10 ML CUP PO SCH ×4 (08:02→21:17)
[2018-01-02] MEDS: APIXABAN 5 MG TABLET PO SCH ×2 (08:03→21:00)
[2018-01-02] MEDS: FERROUS SULFATE 325 MG (65 MG ELEMENTAL IRON) TAB PO SCH ×2 (08:03→21:17)
[2018-01-02] MEDS: LORazepam 0.5 MG TAB PO SCH ×2 (08:03→21:16)
[2018-01-02] MEDS: DOCUSATE SODIUM 50 MG/SENNA 8.6 MG TAB PO SCH ×2 (08:03→21:17)
[2018-01-02] MEDS: TAMSULOSIN HCL 0.4 MG CAP PO SCH (08:04)
[2018-01-02] MEDS: FUROSEMIDE 40 MG/4 ML VIAL IV PUSH SCH ×2 (08:04→21:17)
[2018-01-02] MEDS: PARoxetine HCL 20 MG TAB PO SCH (08:04)
[2018-01-02] MEDS: POTASSIUM CHLORIDE 20 MEQ CONTROLLED RELEASE TAB PO SCH ×2 (08:04→21:16)
[2018-01-02] MEDS: SODIUM CHLORIDE 0.9% FLUSH 10 ML FLUSH IV FLUSH SCH ×2 (08:07→21:17)
[2018-01-02] MEDS ORDERED: INSULIN REGULAR (IV INFUSION) 100 UNITS in SODIUM CHLORIDE 0.9% INJ 99 ML IV PRN (09:30)
[2018-01-02] MEDS ORDERED: MISC INFORMATION OTHER ONE (09:30)
[2018-01-02] MEDS ORDERED: DEXTROSE 50% IN WATER 50 ML VIAL(D50) IV PUSH PRN (09:30)
--- NOTE | 2018-01-02 09:33 | HHI.CCPN ---
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 Patient was admitted on the medicine hill, he was placed on BiPAP, started on Solu-Medrol, bronchodilators and he was evaluated by pulmonology. Despite all the treatment, patient did not improve and earlier today the rapid response was called for worsening respiratory status. Patient was seen immediately on ICU arrival, awake following commands, feeling a little better but not significantly improved since admission. Patient denies any chest pain, palpitations, or any other complaints. 01/02: Insulin drip was stopped over the night, blood sugars this a.m. in the 400s. Patient off BiPAP, used it intermittently over the night. Breathing is improved but he still feels tight. Currently on facemask. Denies any chest pain, palpitations, abdominal pain. Had bowel movement this morning. T-max of 98.8. Objective Vital Signs Date Time Temp Pulse Resp B/P (MAP) Pulse Ox O2 Delivery O2 Flow Rate FiO2 01/02/18 08:19 95 Venturi Mask 6.00 50 01/02/18 08:00 97.6 89 18 156/86 (109) Intake and Output 01/02/18 01/02/18 01/03/18 08:00 16:00 00:00 Intake Total 1200 ml Output Total 1500 ml Balance -300 ml Result Diagram: 01/02/18 0519 01/02/18 0519 Other Results Microbiology Date/Time Source Procedure Growth Status 12/31/17 09:30 Nasal Aspirate Influenza Types A,B Antigen (STEFFANIE) - Final NEGATIVE FOR FLU A AND B ANTIGEN.... Complete Laboratory Tests Test 01/01/18 11:30 Blood Gas Puncture Site LT RADIAL Blood Gas Patient Temperature 98.6 Blood Gas HCO3 18 mmol/L (22-26) Blood Gas Base Excess -5.8 mmol/L (-2-2) Blood Gas Oxygen Saturation 95 % (90-100) Arterial Blood pH 7.41 (7.380-7.420) Arterial Blood Partial Pressure CO2 29 mmHg (38-42) Arterial Blood Partial Pressure O2 101 mmHg (61-120) Arterial Blood Oxygen Content 18.7 Vol % (12.0-20.0) Arterial Blood Carboxyhemoglobin 0.8 % (0-4) Arterial Blood Methemoglobin 1.5 % (0-2) Blood Gas Hemoglobin 13.9 G/DL (12.0-16.0) Oxygen Delivery Device MASK Blood Gas Liter Flow 8 L/M Imaging Last Impressions Chest X-Ray 12/31/17 0852 Signed Impressions: Service Date/Time: Sunday, December 31, 2017 09:20 - CONCLUSION: Normal examination. Anant Andrews MD Objective Remarks General - middle-aged gentleman, awake, ill-appearing, in no distress HEENT - pupils are equal, reactive, sclerae are anicteric, neck is supple, no rigidity, no JVD, no carotid bruit CV - regular heart sounds, no murmurs, tachycardic Chest - still with scattered wheezes bilateral, decreased air entry at bases, no crackles Abdomen - soft, not tender, distended, BS present, no hepatomegaly, no splenomegaly Skin - no rashes, no cyanosis Extremities - warm, trace edema over the right lower extremity, + peripheral pulses Neuro - awake alert and oriented, moves all extremities, motor 5 out of 5 A/P Assessment and Plan 1. Acute asthma exacerbation -slightly improved 2. Acute hypoxic respiratory 3. Uncontrolled diabetes, initially better, now being off insulin drip glucose back in the 400 4. History of DVT/PE on anticoagulation 5. Hyperlipidemia 6. GERD 7. Anxiety 1. Continue supplemental O2 to keep SPO2 above 92% 2. BiPAP as needed 3. Continue steroids to 125 every 8 hours 4. Bronchodilators every 4 hours 5. Restart insulin drip 6. Continue azithromycin 7. Received Lasix with great urine output yesterday 8. Echocardiogram 9. Pulmonary following 10. Continue Eliquis 11. GI prophylaxis Nick Palacios MD Jan 02, 2018 09:33
[2018-01-02] MEDS: AZITHROMYCIN INJ 500 MG in SODIUM CHLOR 0.9% 250 ML INJ 250 ML IV SCH (12:18)
--- NOTE | 2018-01-02 15:38 | HHI.PR ---
Subjective Remarks alert still wheezing, now in ICU SOB with mild exertion Objective Vital Signs Date Time Temp Pulse Resp B/P (MAP) Pulse Ox O2 Delivery O2 Flow Rate FiO2 01/02/18 14:00 109 01/02/18 12:00 97 Venturi Mask 50 01/02/18 12:00 104 01/02/18 12:00 98.3 104 20 155/96 (115) 01/02/18 10:00 103 01/02/18 08:19 95 Venturi Mask 6.00 50 01/02/18 08:00 97.6 89 18 156/86 (109) 01/02/18 08:00 95 Venturi Mask 50 01/02/18 08:00 89 01/02/18 06:00 82 01/02/18 04:32 96 40 01/02/18 04:00 97 Bi-Pap 01/02/18 04:00 90 01/02/18 04:00 98.4 85 14 139/80 (99) 01/02/18 02:00 92 01/02/18 00:00 90 01/02/18 00:00 97 Bi-Pap 01/02/18 00:00 98 16 142/85 (104) 01/01/18 23:10 95 40 01/01/18 23:00 98 Bi-Pap 01/01/18 22:00 98 01/01/18 21:21 97 Venturi Mask 7.00 50 01/01/18 20:00 98.0 95 20 139/89 (106) 98 01/01/18 20:00 97 Venturi Mask 50 01/01/18 20:00 100 01/01/18 18:00 101 01/01/18 17:20 Venturi Mask 6.00 50 01/01/18 16:00 97.7 100 18 143/89 (107) 01/01/18 16:00 101 18 01/01/18 16:00 103 I/O 01/01/18 01/01/18 01/01/18 01/02/18 01/02/18 01/02/18 07:00 15:00 23:00 07:00 15:00 23:00 Intake Total 960 ml 575 ml 1212 ml Output Total 2400 ml 1795 ml 1500 ml Balance -1440 ml -1220 ml -288 ml Intake Oral 960 ml 1200 ml IV Total 575 ml 12 ml Output Urine Total 2400 ml 1795 ml 1500 ml # Bowel Movements 0 Result Diagram: 01/02/1851801/02/18518 Objective Remarks GENERAL: SKIN: Warm and dry. HEAD: Atraumatic. Normocephalic. EYES: Pupils equal and round. No scleral icterus. No injection or drainage. ENT: No nasal bleeding or discharge. Mucous membranes pink and moist. NECK: Trachea midline. No JVD. CARDIOVASCULAR: Regular rate and rhythm. RESPIRATORY: No accessory muscle use. WHEEZING BILATERALY to auscultation. Breath sounds equal bilaterally. GASTROINTESTINAL: Abdomen soft, non-tender, nondistended. Hepatic and splenic margins not palpable. MUSCULOSKELETAL: Extremities without clubbing, cyanosis, or edema. No obvious deformities. NEUROLOGICAL: Awake and alert. No obvious cranial nerve deficits. Motor grossly within normal limits. Five out of 5 muscle strength in the arms and legs. Normal speech. PSYCHIATRIC: Appropriate mood and affect; insight and judgment normal. Assessment and Plan Assessment and Plan ass: asthma exacerrbation plan O2/ BIPAP BRONCHODILATORS INCREASE ACTIVITY Mary Hernandez MD Jan 02, 2018 15:38
--- NOTE | 2018-01-02 16:04 | HHI.PR ---
Subjective History of Present Illness Patient still have sever SOB/ Wheezing on Bipap had high blood sugar above 600 mg/dl on Insulin drip check Lab in AM Discussed with patient Review of Systems Constitutional Constitutional: Fatigue, Weakness Pulmonary Respiratory: Coughing, Shortness of Breath, Wheezing Allergic/Immunologic Allergic/Immunologic: Asthma Vitals/Results Vital Signs Vital Signs Date Time Temp Pulse Resp B/P (MAP) Pulse Ox O2 Delivery O2 Flow Rate FiO2 01/02/18 14:00 109 01/02/18 12:00 97 Venturi Mask 50 01/02/18 12:00 104 01/02/18 12:00 98.3 104 20 155/96 (115) 01/02/18 10:00 103 01/02/18 08:19 95 Venturi Mask 6.00 50 01/02/18 08:00 97.6 89 18 156/86 (109) 01/02/18 08:00 95 Venturi Mask 50 01/02/18 08:00 89 01/02/18 06:00 82 01/02/18 04:32 96 40 01/02/18 04:00 97 Bi-Pap 01/02/18 04:00 90 01/02/18 04:00 98.4 85 14 139/80 (99) 01/02/18 02:00 92 01/02/18 00:00 90 01/02/18 00:00 97 Bi-Pap 01/02/18 00:00 98 16 142/85 (104) 01/01/18 23:10 95 40 01/01/18 23:00 98 Bi-Pap 01/01/18 22:00 98 01/01/18 21:21 97 Venturi Mask 7.00 50 01/01/18 20:00 98.0 95 20 139/89 (106) 98 01/01/18 20:00 97 Venturi Mask 50 01/01/18 20:00 100 01/01/18 18:00 101 01/01/18 17:20 Venturi Mask 6.00 50 CBC/BMP: 01/02/18 0519 01/02/18 0519 Lab Results Laboratory Tests Test 01/01/18 21:15 01/02/18 05:19 Nasal Screen MRSA (PCR) MRSA NOT DETECTED White Blood Count 17.9 TH/MM3 Red Blood Count 4.64 MIL/MM3 Hemoglobin 13.3 GM/DL Hematocrit 40.0 % Mean Corpuscular Volume 86.3 FL Mean Corpuscular Hemoglobin 28.6 PG Mean Corpuscular Hemoglobin Concent 33.1 % Red Cell Distribution Width 17.1 % Platelet Count 180 TH/MM3 Mean Platelet Volume 8.0 FL Neutrophils (%) (Auto) 93.2 % Lymphocytes (%) (Auto) 2.9 % Monocytes (%) (Auto) 3.8 % Eosinophils (%) (Auto) 0.0 % Basophils (%) (Auto) 0.1 % Neutrophils # (Auto) 16.7 TH/MM3 Lymphocytes # (Auto) 0.5 TH/MM3 Monocytes # (Auto) 0.7 TH/MM3 Eosinophils # (Auto) 0.0 TH/MM3 Basophils # (Auto) 0.0 TH/MM3 CBC Comment DIFF FINAL Differential Comment Blood Urea Nitrogen 25 MG/DL Creatinine 1.34 MG/DL Random Glucose 410 MG/DL Total Protein 6.3 GM/DL Albumin 3.5 GM/DL Calcium Level 9.0 MG/DL Magnesium Level 2.5 MG/DL Alkaline Phosphatase 103 U/L Aspartate Amino Transf (AST/SGOT) 13 U/L Alanine Aminotransferase (ALT/SGPT) 72 U/L Total Bilirubin 0.5 MG/DL Sodium Level 138 MEQ/L Potassium Level 3.7 MEQ/L Chloride Level 99 MEQ/L Carbon Dioxide Level 23.3 MEQ/L Anion Gap 16 MEQ/L Estimat Glomerular Filtration Rate 56 ML/MIN Physical Exam General General Appearance: Well Developed, Well Nourished, Anxious Appearance Remarks Acute respiratory distress on BIPAP. Eyes Eye Exam: Pupils Equal, Pupils Reactive, Sclera White, Extraocular Movement Intact Throat Throat Remarks Oral Thrush. Neck Neck Exam: Neck Supple, Trachea Midline Pulmonary Resp Exam: Diminished Breath Sounds, Labored Resp Remarks Bilateral wheezing and crackles. Cardiology CV Exam: Normal Sinus Rhythm, Tachycardia Gastrointestinal/Abdomen GI Exam: Soft, Non-Tender, Bowel Sounds Present, Distended Musculoskeletal MS Exam: Joints Intact Integumentary Skin Exam: Warm, Dry, Intact Extremeties Extremities Exam: Moderate Edema, Pitting Edema Neurologic Neuro Exam: Alert, Awake, Oriented, Moving All Extremities, No Focal Deficits Psychiatric Psych Exam: Appropriate Responses VTE Prophylaxis VTE Remarks Eliquis PUD Prophylasis PUD Prophylaxis: Protonix Assessment/Plan Assessment/Plan ASSESSMENT AND PLAN: This is a 52-year-old male who came to the ER, diagnosed with: 1. Acute respiratory failure secondary to chronic obstructive pulmonary disease/asthma exacerbation. on BIPAP Now critical care input noted. The patient is on DuoNeb nebulization. The patient also on Solu-Medrol 60 mg every 4 hour. The patient is also on Symbicort inhaler, Singulair 10 mg p.o. daily. Pulmonary input noted. Further recommendation per pulmonary. 2. History of COPD/asthma. Continue home medication. 3. History of benign prostatic hypertrophy. Continue with Flomax 0.4 mg p.o. daily. 4. History of hyperlipidemia. Continue with Lipitor 40 mg p.o. daily. 5. Diabetes mellitus. ADA 1800 calorie diet. NovoLog low dose sliding scale. Check blood sugar with meals and at bedtime. Continue Metformin 500 mg twice a day. We will monitor blood sugar closely. Had High blood sugar above 600 on insulin drip.. blood sugar in 400 now. 6. History of deep venous thrombosis and pulmonary embolism. The patient is on Eliquis 5 mg twice a day. 7. History of hypertension. Continue with diltiazem 360 mg p.o. daily. 8. Iron deficiency anemia. The patient is on ferrous sulfate 325 mg twice a day. 9. Leg edema and generalized edema. The patient is on Lasix 40 mg daily. 10. Anxiety. Continue lorazepam 0.5 mg twice a day. 11. Gastroesophageal reflux disease. Protonix 40 mg p.o. daily. 12. Depression. Continue with Paxil 20 mg p.o. daily. 13. History of oral thrush. The patient is on nystatin 5 mL 4 times a day. 14. Deep venous thrombosis prophylaxis, Eliquis 5 mg twice a day. 15. Gastrointestinal prophylaxis, Protonix 40 mg p.o. daily. 16. Renal Insufficency on Diuretic. Check CBC, CMP in the morning. We are going to manage the patient on a daily basis and make recommendations on daily basis. Discussed Condition with: Patient Myron Woodward MD Jan 02, 2018 16:04
[2018-01-02] MEDS: MONTELUKAST SODIUM 10 MG TAB PO SCH (21:16)
[2018-01-02] MEDS: ATORVASTATIN 40 MG TAB PO SCH (21:17)
[2018-01-02] MEDS: INSULIN REGULAR (IV INFUSION) 100 UNITS in SODIUM CHLORIDE 0.9% INJ 99 ML IV PRN (22:48)
[2018-01-03] VITALS (16 sets, daily range): BP systolic 145–157; BP diastolic 87–101; PULSE 79–109; RESP 14–22; TEMP 97.7–98.3; O2SAT 96–98
[2018-01-03] MEDS: RESP: ALBUTEROL 2.5 MG/IPRATROPIUM 0.5 MG NEB (SCH) NEB ×7 (00:52→23:40)
[2018-01-03] MEDS: CHLORHEXIDINE GLUCONATE 2 % 1 PACK (2 CLOTHS)(taper/protocol) TOPICAL SCH ×2 (03:40→20:23)
[2018-01-03] MEDS: methylPREDNISolone SOD SUCC 40 MG/1 ML VIAL IV PUSH SCH ×3 (05:41→20:20)
[2018-01-03 07:17] LABS: AUTOMATED NEUTROPHIL # 14.1 TH/MM3 (1.8-7.7); BASOPHIL % 0.1 % (0.0-2.0); HEMATOCRIT 39.4 % (39.0-51.0); HEMOGLOBIN 13.5 GM/DL (13.0-17.0); LYMPH % 2.7 % (9.0-44.0); LYMPHOCYTE # 0.4 TH/MM3 (1.0-4.8); MEAN CELL VOLUME 84.9 FL (80.0-100.0); MEAN CORPUSCULAR HEMOGLOBIN 29.1 PG (27.0-34.0); MEAN CORPUSCULAR HGB CONC 34.3 % (32.0-36.0); MEAN PLATELET VOLUME 7.8 FL (7.0-11.0); MONO % 3.5 % (0.0-8.0); MONOCYTE # 0.5 TH/MM3 (0-0.9); NEUT % 93.7 % (16.0-70.0); PLATELET COUNT 179 TH/MM3 (150-450); RED BLOOD COUNT 4.64 MIL/MM3 (4.50-5.90); RED CELL DISTRIBUTION WIDTH 16.8 % (11.6-17.2); WHITE BLOOD COUNT 15.1 TH/MM3 (4.0-11.0)
[2018-01-03 07:54] LABS: ALBUMIN 3.6 GM/DL (3.4-5.0); ALKALINE PHOSPHATASE 94 U/L (45-117); ALT (GPT) 63 U/L (12-78); AST (GOT) 12 U/L (15-37); BICARBONATE 26.5 MEQ/L (21.0-32.0); BLOOD UREA NITROGEN 26 MG/DL (7-18); CALCIUM 8.5 MG/DL (8.5-10.1); CHLORIDE 97 MEQ/L (98-107); CREATININE 1.16 MG/DL (0.60-1.30); GLOMERULAR FILTRATION RATE 66 ML/MIN (>89); GLUCOSE,RANDOM 243 MG/DL (74-106); SODIUM (NA) 138 MEQ/L (136-145); TOTAL BILIRUBIN ADULT 0.6 MG/DL (0.2-1.0); TOTAL PROTEIN 6.3 GM/DL (6.4-8.2)
[2018-01-03] MEDS: SODIUM CHLORIDE 0.9% FLUSH 10 ML FLUSH IV FLUSH SCH ×2 (08:46→20:20)
[2018-01-03] MEDS: FUROSEMIDE 40 MG/4 ML VIAL IV PUSH SCH ×2 (08:46→20:20)
[2018-01-03] MEDS: LORazepam 0.5 MG TAB PO SCH ×2 (08:47→20:19)
[2018-01-03] MEDS: TAMSULOSIN HCL 0.4 MG CAP PO SCH (08:47)
[2018-01-03] MEDS: FERROUS SULFATE 325 MG (65 MG ELEMENTAL IRON) TAB PO SCH ×2 (08:47→20:19)
[2018-01-03] MEDS: APIXABAN 5 MG TABLET PO SCH ×2 (08:47→20:19)
[2018-01-03] MEDS: DILTIAZEM-CD 180 MG CAP ER PO SCH (08:47)
[2018-01-03] MEDS: PARoxetine HCL 20 MG TAB PO SCH (08:48)
[2018-01-03] MEDS: guaiFENesin/DEXTROMETHORPHAN 200 MG/20 MG/10 ML CUP PO SCH ×4 (08:48→20:18)
[2018-01-03] MEDS: PANTOPRAZOLE SOD 40 MG DELAYED RELEASE TAB PO SCH (08:48)
[2018-01-03] MEDS: DOCUSATE SODIUM 50 MG/SENNA 8.6 MG TAB PO SCH ×2 (08:48→20:19)
[2018-01-03] MEDS: NYSTATIN SUSP 500,000 U/5 ML CUP SWISH-SWAL SCH ×4 (08:48→20:19)
[2018-01-03] MEDS: POTASSIUM CHLORIDE 20 MEQ CONTROLLED RELEASE TAB PO SCH ×2 (08:48→20:19)
[2018-01-03 10:01] LABS: BANDS 4 % (0-6); LYMPHOCYTES 4 % (9-44); MONOCYTES 4 % (0-8); MYELOCYTES 2 % (0-0); NEUTROPHIL # MANUAL DIFF 13.9 TH/MM3 (1.8-7.7); POLYS (SEG NEUTROPHILS) 86 % (16-70)
[2018-01-03 10:02] LABS: CORRECTED NUCLEATED RBC 1 /100 WBC (0-0); NUCLEATED RED BLOOD CELL 1 (0-0); OVALOCYTES 1+ (NORMAL)
--- NOTE | 2018-01-03 10:47 | HHI.PR ---
Subjective History of Present Illness Patient still have sever SOB/ Wheezing on Bipap, high blood sugar on Insulin drip much better now. check Lab in AM Discussed with patient and RN at bed side. Leukocytosis better Low Potassium will replace and monitor. Review of Systems Constitutional Constitutional: Fatigue, Weakness Pulmonary Respiratory: Coughing, Shortness of Breath, Wheezing Allergic/Immunologic Allergic/Immunologic: Asthma Vitals/Results Vital Signs Vital Signs Date Time Temp Pulse Resp B/P (MAP) Pulse Ox O2 Delivery O2 Flow Rate FiO2 01/03/18 10:00 95 01/03/18 08:00 98.3 82 22 153/101 (118) 97 01/03/18 08:00 96 Bi-Pap 50 01/03/18 08:00 82 01/03/18 06:00 82 01/03/18 04:00 97 Nasal Cannula 4.00 01/03/18 04:00 80 01/03/18 04:00 97.7 80 16 145/91 (109) 01/03/18 02:00 79 01/03/18 00:00 96 Bi-Pap 50 01/03/18 00:00 97.9 84 14 147/87 (107) 96 01/03/18 00:00 84 01/02/18 22:00 92 01/02/18 21:16 97 40 01/02/18 21:15 95 Nasal Cannula 4.00 01/02/18 20:00 97.6 90 17 157/93 (114) 97 01/02/18 20:00 95 Nasal Cannula 4.00 01/02/18 20:00 90 01/02/18 18:00 99 01/02/18 16:35 96 40 01/02/18 16:00 88 01/02/18 16:00 98.0 88 22 150/85 (106) 01/02/18 16:00 96 Bi-Pap 50 01/02/18 14:00 109 01/02/18 12:00 97 Venturi Mask 50 01/02/18 12:00 104 01/02/18 12:00 98.3 104 20 155/96 (115) CBC/BMP: 01/03/18 0657 01/03/18 0657 Lab Results Laboratory Tests Test 01/03/18 06:57 White Blood Count 15.1 TH/MM3 Red Blood Count 4.64 MIL/MM3 Hemoglobin 13.5 GM/DL Hematocrit 39.4 % Mean Corpuscular Volume 84.9 FL Mean Corpuscular Hemoglobin 29.1 PG Mean Corpuscular Hemoglobin Concent 34.3 % Red Cell Distribution Width 16.8 % Platelet Count 179 TH/MM3 Mean Platelet Volume 7.8 FL Neutrophils (%) (Auto) 93.7 % Lymphocytes (%) (Auto) 2.7 % Monocytes (%) (Auto) 3.5 % Eosinophils (%) (Auto) 0.0 % Basophils (%) (Auto) 0.1 % Neutrophils # (Auto) 14.1 TH/MM3 Lymphocytes # (Auto) 0.4 TH/MM3 Monocytes # (Auto) 0.5 TH/MM3 Eosinophils # (Auto) 0.0 TH/MM3 Basophils # (Auto) 0.0 TH/MM3 CBC Comment AUTO DIFF Differential Total Cells Counted 100 Neutrophils % (Manual) 86 % Band Neutrophils % 4 % Lymphocytes % 4 % Monocytes % 4 % Neutrophils # (Manual) 13.9 TH/MM3 Myelocytes 2 % Nucleated Red Blood Cells 1 /100 WBC Differential Comment FINAL DIFF MANUAL Platelet Estimate NORMAL Platelet Morphology Comment NORMAL Ovalocytes 1+ Blood Urea Nitrogen 26 MG/DL Creatinine 1.16 MG/DL Random Glucose 243 MG/DL Total Protein 6.3 GM/DL Albumin 3.6 GM/DL Calcium Level 8.5 MG/DL Alkaline Phosphatase 94 U/L Aspartate Amino Transf (AST/SGOT) 12 U/L Alanine Aminotransferase (ALT/SGPT) 63 U/L Total Bilirubin 0.6 MG/DL Sodium Level 138 MEQ/L Potassium Level 3.2 MEQ/L Chloride Level 97 MEQ/L Carbon Dioxide Level 26.5 MEQ/L Anion Gap 15 MEQ/L Estimat Glomerular Filtration Rate 66 ML/MIN Physical Exam General General Appearance: Well Developed, Well Nourished, Anxious Appearance Remarks Acute respiratory distress on BIPAP. Eyes Eye Exam: Pupils Equal, Pupils Reactive, Sclera White, Extraocular Movement Intact Throat Throat Remarks Oral Thrush. Neck Neck Exam: Neck Supple, Trachea Midline Pulmonary Resp Exam: Diminished Breath Sounds, Labored Resp Remarks Bilateral wheezing and crackles. Cardiology CV Exam: Normal Sinus Rhythm, Tachycardia Gastrointestinal/Abdomen GI Exam: Soft, Non-Tender, Bowel Sounds Present, Distended Musculoskeletal MS Exam: Joints Intact Integumentary Skin Exam: Warm, Dry, Intact Extremeties Extremities Exam: Moderate Edema, Pitting Edema Neurologic Neuro Exam: Alert, Awake, Oriented, Moving All Extremities, No Focal Deficits Psychiatric Psych Exam: Appropriate Responses VTE Prophylaxis VTE Remarks Eliquis PUD Prophylasis PUD Prophylaxis: Protonix Assessment/Plan Assessment/Plan ASSESSMENT AND PLAN: This is a 52-year-old male who came to the ER, diagnosed with: 1. Acute respiratory failure secondary to chronic obstructive pulmonary disease/asthma exacerbation. on BIPAP Now critical care input noted. The patient is on DuoNeb nebulization. The patient also on Solu-Medrol 60 mg every 4 hour. The patient is also on Symbicort inhaler, Singulair 10 mg p.o. daily. Pulmonary input noted. Further recommendation per pulmonary. 2. History of COPD/asthma. Continue home medication. 3. History of benign prostatic hypertrophy. Continue with Flomax 0.4 mg p.o. daily. 4. History of hyperlipidemia. Continue with Lipitor 40 mg p.o. daily. 5. Diabetes mellitus. ADA 1800 calorie diet. NovoLog low dose sliding scale. Check blood sugar with meals and at bedtime. Continue Metformin 500 mg twice a day. We will monitor blood sugar closely. Had High blood sugar above 600 on insulin drip.. blood sugar in 400 now. 6. History of deep venous thrombosis and pulmonary embolism. The patient is on Eliquis 5 mg twice a day. 7. History of hypertension. Continue with diltiazem 360 mg p.o. daily. 8. Iron deficiency anemia. The patient is on ferrous sulfate 325 mg twice a day. 9. Leg edema and generalized edema. The patient is on Lasix 40 mg daily. 10. Anxiety. Continue lorazepam 0.5 mg twice a day. 11. Gastroesophageal reflux disease. Protonix 40 mg p.o. daily. 12. Depression. Continue with Paxil 20 mg p.o. daily. 13. History of oral thrush. The patient is on nystatin 5 mL 4 times a day. 14. Deep venous thrombosis prophylaxis, Eliquis 5 mg twice a day. 15. Gastrointestinal prophylaxis, Protonix 40 mg p.o. daily. 16. Renal Insufficency on Diuretic. better. 17. Leukocytosis better. 18. Hypokalemia will replace and monitor. Check CBC, CMP in the morning. We are going to manage the patient on a daily basis and make recommendations on daily basis. Discussed Condition with: Patient Myron Woodward MD Jan 03, 2018 10:47
[2018-01-03] MEDS ORDERED: POTASSIUM CHLORIDE 10 MEQ CONTROLLED RELEASE TAB PO ONE (11:00)
--- NOTE | 2018-01-03 11:46 | HHI.CCPN ---
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 Patient was admitted on the medicine hill, he was placed on BiPAP, started on Solu-Medrol, bronchodilators and he was evaluated by pulmonology. Despite all the treatment, patient did not improve and earlier today the rapid response was called for worsening respiratory status. Patient was seen immediately on ICU arrival, awake following commands, feeling a little better but not significantly improved since admission. Patient denies any chest pain, palpitations, or any other complaints. 01/02: Insulin drip was stopped over the night, blood sugars this a.m. in the 400s. Patient off BiPAP, used it intermittently over the night. Breathing is improved but he still feels tight. Currently on facemask. Denies any chest pain, palpitations, abdominal pain. Had bowel movement this morning. T-max of 98.8. 01/03: No events over the night. Patient using intermittently BiPAP and nasal cannula. He still feels tight and says that this is consistent with his usual course of asthma exacerbations. Otherwise he is in good spirits, denies chest pain, tremor resolved, no palpitations, no abdominal pain, urinating good. Objective Vital Signs Date Time Temp Pulse Resp B/P (MAP) Pulse Ox O2 Delivery O2 Flow Rate FiO2 01/03/18 10:00 95 01/03/18 08:00 98.3 22 153/101 (118) 97 01/03/18 08:00 Bi-Pap 50 01/03/18 04:00 4.00 Intake and Output 01/03/18 01/03/18 01/04/18 08:00 16:00 00:00 Intake Total 480 ml Output Total 1300 ml Balance -820 ml Result Diagram: 01/03/18 0657 01/03/18 06 Other Results Blood cultures from 12/31 no growth to date Influenza A and B - negative Imaging Last Impressions Chest X-Ray 12/31/17 0843 Signed Impressions: Service Date/Time: Sunday, December 31, 2017 09:20 - CONCLUSION: Normal examination. Anant Andrews MD Objective Remarks General - middle-aged gentleman, awake, ill-appearing, in no distress HEENT - pupils equal, reactive, sclerae anicteric, neck supple, neck veins not distended, no carotid bruit CV - regular S1 and, no murmurs, tachycardic Chest - still has some wheezes bilateral, improved air entry, no rales Abdomen - soft, distended, not tender, BS present Extremities - warm, trace edema over the right lower extremity, no edema over the left, + peripheral pulses Neuro - awake alert and oriented, moves all extremities, motor 5 out of 5 A/P Assessment and Plan 1. Acute asthma exacerbation -very slowly improving 2. Acute hypoxic respiratory -0.4 FiO2 and 2 L nasal cannula 3. Uncontrolled diabetes -better controlled 4. History of DVT/PE on anticoagulation 5. Hyperlipidemia 6. GERD 7. Anxiety 1. Continue supplemental O2 to keep SPO2 above 92% 2. BiPAP as needed 3. Continue steroids but we will attempt to decrease dose to 80 every 8 hours 4. Bronchodilators every 4 hours 5. Continue insulin drip while he is on high-dose steroids 6. Continue azithromycin 7. On Lasix with great urine output 8. Echocardiogram is pending 9. Pulmonary following 10. Continue Eliquis 11. GI prophylaxis 12. On diet. No feeding 1 hour before and after BiPAP use. Both nursing and patient were advised Nick Palacios MD Jan 03, 2018 11:46
[2018-01-03] MEDS: AZITHROMYCIN INJ 500 MG in SODIUM CHLOR 0.9% 250 ML INJ 250 ML IV SCH (12:57)
[2018-01-03] MEDS: INSULIN REGULAR (IV INFUSION) 100 UNITS in SODIUM CHLORIDE 0.9% INJ 99 ML IV PRN (13:14)
[2018-01-03] MEDS: BUDESONIDE-FORMOTEROL 160/4.5 MCG INHALER INH SCH ×2 (17:09→20:20)
--- NOTE | 2018-01-03 17:34 | HHI.PR ---
Subjective Remarks alert still wheezing, BUT LESS SOB with mild exertion Objective Vital Signs Date Time Temp Pulse Resp B/P (MAP) Pulse Ox O2 Delivery O2 Flow Rate FiO2 01/03/18 16:00 98.1 101 22 147/92 (110) 97 01/03/18 16:00 97 Nasal Cannula 4.00 01/03/18 16:00 101 01/03/18 15:54 98 40 01/03/18 14:00 107 01/03/18 12:00 97.9 109 21 157/91 (113) 97 01/03/18 12:00 107 01/03/18 12:00 97 Nasal Cannula 4.00 01/03/18 11:39 98 Nasal Cannula 4.00 01/03/18 10:00 95 01/03/18 08:00 98.3 82 22 153/101 (118) 97 01/03/18 08:00 96 Bi-Pap 50 01/03/18 08:00 82 01/03/18 06:00 82 01/03/18 04:00 97 Nasal Cannula 4.00 01/03/18 04:00 80 01/03/18 04:00 97.7 80 16 145/91 (109) 01/03/18 02:00 79 01/03/18 00:00 96 Bi-Pap 50 01/03/18 00:00 97.9 84 14 147/87 (107) 96 01/03/18 00:00 84 01/02/18 22:00 92 01/02/18 21:16 97 40 01/02/18 21:15 95 Nasal Cannula 4.00 01/02/18 20:00 97.6 90 17 157/93 (114) 97 01/02/18 20:00 95 Nasal Cannula 4.00 01/02/18 20:00 90 01/02/18 18:00 99 I/O 01/02/18 01/02/18 01/02/18 01/03/18 01/03/18 01/03/18 07:00 15:00 23:00 07:00 15:00 23:00 Intake Total 1212 ml 1170 ml 480 ml 350 ml Output Total 1500 ml 2450 ml 1300 ml Balance -288 ml -1280 ml -820 ml 350 ml Intake Oral 1200 ml 800 ml 480 ml IV Total 12 ml 370 ml 350 ml Output Urine Total 1500 ml 2450 ml 1300 ml # Bowel Movements 0 1 Result Diagram: 01/03/18 0657 01/03/18 0657 Objective Remarks GENERAL: SKIN: Warm and dry. HEAD: Atraumatic. Normocephalic. EYES: Pupils equal and round. No scleral icterus. No injection or drainage. ENT: No nasal bleeding or discharge. Mucous membranes pink and moist. NECK: Trachea midline. No JVD. CARDIOVASCULAR: Regular rate and rhythm. RESPIRATORY: No accessory muscle use. WHEEZING BILATERALY to auscultation. Breath sounds equal bilaterally. GASTROINTESTINAL: Abdomen soft, non-tender, nondistended. Hepatic and splenic margins not palpable. MUSCULOSKELETAL: Extremities without clubbing, cyanosis, or edema. No obvious deformities. NEUROLOGICAL: Awake and alert. No obvious cranial nerve deficits. Motor grossly within normal limits. Five out of 5 muscle strength in the arms and legs. Normal speech. PSYCHIATRIC: Appropriate mood and affect; insight and judgment normal. Assessment and Plan Assessment and Plan ass: asthma exacerrbation plan O2/ BIPAP BRONCHODILATORS INCREASE ACTIVITY DECREASE STEROIDS Mary Hernandez MD Jan 03, 2018 17:34
[2018-01-03 18:15] LABS: BILIRUBIN, URINE NEG (NEG); BLOOD, URINE NEG (NEG); GLUCOSE,URINE 1000 mg/dL (NEG); KETONE, URINE TRACE mg/dL (NEG); NITRITE,URINE NEG (NEG); URINE COLOR YELLOW (YELLW/STRAW); URINE LEUKOCYTE ESTERASE NEG (NEG)
--- NOTE | 2018-01-03 19:05 | ECHRPT ---
Indication: CHRONIC PULMONARY HEART DIS CONCLUSIONS Normal left ventricular size. Mild concentric left ventricular hypertrophy. The left ventricular systolic function is low normal with an estimated ejection fraction in the rang e of 50- 55%. There is trace tricuspid valve regurgitation. The estimated pulmonary arterial pressure is 35 mmHg. A prominent epicardial fat pad is present. BP: 156 / 86 HR: 89 Rhythm: Sinus MEASUREMENTS (Male / Female) Normal Values Technical Quality:Fair 2D ECHO LV Diastolic Diameter PLAX 5.0 cm 4.2 - 5.9 / 3.9 - 5.3 cm LV Systolic Diameter PLAX 3.9 cm IVS Diastolic Thickness 1.2 cm 0.6 - 1.0 / 0.6 - 0.9 cm LVPW Diastolic Thickness 1.2 cm 0.6 - 1.0 / 0.6 - 0.9 cm LV Relative Wall Thickness 0.5 RV Internal Dim ED PLAX 3.7 cm LVOT Diameter 2.0 cm Aortic Root Diameter 3.4 cm LA Systolic Diameter LX 3.4 cm 3.0 - 4.0 / 2.7 - 3.8 cm M-MODE AV Cusp Separation MM 2.4 cm DOPPLER AV Peak Velocity 136.0 cm/s AV Peak Gradient 7.4 mmHg AV Mean Gradient 3.0 mmHg AV Velocity Time Integral 19.3 cm LVOT Peak Velocity 105.0 cm/s LVOT Peak Gradient 4.4 mmHg LVOT Velocity Time Integral 15.5 cm AV Area Cont Eq vti 2.5 cm AV Area Cont Eq pk 2.4 cm Mitral E Point Velocity 79.0 cm/s Mitral A Point Velocity 109.0 cm/s Mitral E to A Ratio 0.7 LV E' Lateral Velocity 11.3 cm/s Mitral E to LV E' Lateral Ratio 7.0 LV E' Septal Velocity 7.6 cm/s Mitral E to LV E' Septal Ratio 10.4 TR Peak Velocity 250.0 cm/s TR Peak Gradient 25.0 mmHg Right Atrial Pressure 10.0 mmHg Pulmonary Artery Systolic Pressu 35.0 mmHg Right Ventricular Systolic Press 35.0 mmHg PV Peak Velocity 84.2 cm/s PV Peak Gradient 2.8 mmHg FINDINGS LEFT VENTRICLE Normal left ventricular size. Mild concentric left ventricular hypertrophy. The left ventricular systolic function is low normal with an estimated ejection fraction in the rang e of 50- 55%. RIGHT VENTRICLE Normal right ventricular size and systolic function. LEFT ATRIUM The left atrial size is normal. RIGHT ATRIUM The right atrial size is normal. ATRIAL SEPTUM The interatrial septum not well visualized. AORTA The aortic root and proximal ascending aorta are normal in size on limited imaging. MITRAL VALVE Structurally normal mitral valve. No mitral valve stenosis or regurgitation. AORTIC VALVE Trileaflet aortic valve. No aortic valve stenosis or regurgitation. TRICUSPID VALVE There is trace tricuspid valve regurgitation. The estimated pulmonary arterial pressure is 35 mmHg. PULMONARY VALVE No pulmonary valve regurgitation or stenosis. VESSELS The inferior vena cava was not well visualized. PERICARDIUM A prominent epicardial fat pad is present. Jluis Morris MD, FACC, FSCAI (Electronically Signed) Final Date:03 January 2018 19:04
[2018-01-03] MEDS: MONTELUKAST SODIUM 10 MG TAB PO SCH (20:19)
[2018-01-03] MEDS: ATORVASTATIN 40 MG TAB PO SCH (20:19)
[2018-01-04] VITALS (15 sets, daily range): BP systolic 142–165; BP diastolic 87–102; PULSE 75–119; RESP 13–35; TEMP 98–98.7; O2SAT 93–98
[2018-01-04] MEDS: INSULIN REGULAR (IV INFUSION) 100 UNITS in SODIUM CHLORIDE 0.9% INJ 99 ML IV PRN ×2 (01:37→18:17)
[2018-01-04] MEDS: RESP: ALBUTEROL 2.5 MG/IPRATROPIUM 0.5 MG NEB (SCH) NEB ×5 (03:35→20:27)
[2018-01-04 04:28] LABS: AUTOMATED NEUTROPHIL # 12.9 TH/MM3 (1.8-7.7); BASOPHIL % 0.1 % (0.0-2.0); HEMATOCRIT 39.3 % (39.0-51.0); HEMOGLOBIN 13.1 GM/DL (13.0-17.0); LYMPH % 3.5 % (9.0-44.0); LYMPHOCYTE # 0.5 TH/MM3 (1.0-4.8); MEAN CELL VOLUME 85.8 FL (80.0-100.0); MEAN CORPUSCULAR HEMOGLOBIN 28.6 PG (27.0-34.0); MEAN CORPUSCULAR HGB CONC 33.3 % (32.0-36.0); MEAN PLATELET VOLUME 7.7 FL (7.0-11.0); MONO % 3.5 % (0.0-8.0); MONOCYTE # 0.5 TH/MM3 (0-0.9); NEUT % 92.9 % (16.0-70.0); PLATELET COUNT 171 TH/MM3 (150-450); RED BLOOD COUNT 4.58 MIL/MM3 (4.50-5.90); RED CELL DISTRIBUTION WIDTH 16.9 % (11.6-17.2); WHITE BLOOD COUNT 13.9 TH/MM3 (4.0-11.0)
[2018-01-04 04:38] LABS: ALBUMIN 3.4 GM/DL (3.4-5.0); ALT (GPT) 62 U/L (12-78); AST (GOT) 18 U/L (15-37); BICARBONATE 28.6 MEQ/L (21.0-32.0); BLOOD UREA NITROGEN 24 MG/DL (7-18); CALCIUM 8.1 MG/DL (8.5-10.1); CHLORIDE 101 MEQ/L (98-107); CREATININE 0.93 MG/DL (0.60-1.30); GLOMERULAR FILTRATION RATE 85 ML/MIN (>89); GLUCOSE,RANDOM 227 MG/DL (74-106); MAGNESIUM 2.7 MG/DL (1.5-2.5); PHOSPHORUS 2.3 MG/DL (2.5-4.9); SODIUM (NA) 140 MEQ/L (136-145)
[2018-01-04 04:41] LABS: ALKALINE PHOSPHATASE 87 U/L (45-117); TOTAL BILIRUBIN ADULT 0.5 MG/DL (0.2-1.0)
[2018-01-04] MEDS: methylPREDNISolone SOD SUCC 40 MG/1 ML VIAL IV PUSH SCH ×3 (05:07→20:44)
[2018-01-04] MEDS: SODIUM CHLORIDE 0.9% FLUSH 10 ML FLUSH IV FLUSH SCH ×2 (08:07→20:44)
[2018-01-04] MEDS: BUDESONIDE-FORMOTEROL 160/4.5 MCG INHALER INH SCH ×2 (08:07→20:46)
[2018-01-04] MEDS: LORazepam 0.5 MG TAB PO SCH ×2 (08:08→20:45)
[2018-01-04] MEDS: APIXABAN 5 MG TABLET PO SCH ×2 (08:08→20:45)
[2018-01-04] MEDS: FERROUS SULFATE 325 MG (65 MG ELEMENTAL IRON) TAB PO SCH ×2 (08:08→20:45)
[2018-01-04] MEDS: FUROSEMIDE 40 MG/4 ML VIAL IV PUSH SCH ×2 (08:08→20:44)
[2018-01-04] MEDS: DILTIAZEM-CD 180 MG CAP ER PO SCH (08:08)
[2018-01-04] MEDS: POTASSIUM CHLORIDE 20 MEQ CONTROLLED RELEASE TAB PO SCH ×2 (08:09→20:45)
[2018-01-04] MEDS: DOCUSATE SODIUM 50 MG/SENNA 8.6 MG TAB PO SCH ×2 (08:09→20:45)
[2018-01-04] MEDS: guaiFENesin/DEXTROMETHORPHAN 200 MG/20 MG/10 ML CUP PO SCH ×4 (08:09→20:44)
[2018-01-04] MEDS: PARoxetine HCL 20 MG TAB PO SCH (08:09)
[2018-01-04] MEDS: PANTOPRAZOLE SOD 40 MG DELAYED RELEASE TAB PO SCH (08:09)
[2018-01-04] MEDS: NYSTATIN SUSP 500,000 U/5 ML CUP SWISH-SWAL SCH ×4 (08:09→20:44)
[2018-01-04] MEDS: TAMSULOSIN HCL 0.4 MG CAP PO SCH (08:09)
--- NOTE | 2018-01-04 10:55 | HHI.CCPN ---
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 Patient was admitted on the medicine hill, he was placed on BiPAP, started on Solu-Medrol, bronchodilators and he was evaluated by pulmonology. Despite all the treatment, patient did not improve and earlier today the rapid response was called for worsening respiratory status. Patient was seen immediately on ICU arrival, awake following commands, feeling a little better but not significantly improved since admission. Patient denies any chest pain, palpitations, or any other complaints. 01/02: Insulin drip was stopped over the night, blood sugars this a.m. in the 400s. Patient off BiPAP, used it intermittently over the night. Breathing is improved but he still feels tight. Currently on facemask. Denies any chest pain, palpitations, abdominal pain. Had bowel movement this morning. T-max of 98.8. 01/03: No events over the night. Patient using intermittently BiPAP and nasal cannula. He still feels tight and says that this is consistent with his usual course of asthma exacerbations. Otherwise he is in good spirits, denies chest pain, tremor resolved, no palpitations, no abdominal pain, urinating good. 01/04: Patient did well over the night, using BiPAP. This morning he is on nasal cannula, feeling well first day in which shortness of breath significantly improved. No chest pain, no palpitations no other complaints. Blood glucose much improved, however he remains on insulin drip. Objective Vital Signs Date Time Temp Pulse Resp B/P (MAP) Pulse Ox O2 Delivery O2 Flow Rate FiO2 01/04/18 10:00 118 01/04/18 08:34 97 Nasal Cannula 4.00 01/04/18 08:00 98.3 35 151/102 (118) 01/04/18 04:37 40 Intake and Output 01/04/18 01/04/18 01/05/18 08:00 16:00 00:00 Intake Total 900 ml Output Total 1500 ml Balance -600 ml Result Diagram: 01/04/18 0348 01/04/18 0348 Other Results Microbiology reviewed Imaging Last Impressions Chest X-Ray 12/31/17 0852 Signed Impressions: Service Date/Time: Sunday, December 31, 2017 09:20 - CONCLUSION: Normal examination. Anant Andrews MD Objective Remarks General - middle-aged gentleman, awake, in no distress HEENT - pupils are equal, reactive, sclerae are anicteric, neck is supple, no JVD CV - regular heart sounds, no murmurs, tachycardic at times Chest - good air entry bilateral, minimal wheezes heard, no rales Abdomen - soft, distended, not tender, BS present Extremities - unchanged, warm, trace edema over the right lower extremity, no edema over the left, + peripheral pulses Neuro - awake alert and oriented, moves all extremities, motor 5 out of 5 A/P Assessment and Plan 1. Acute asthma exacerbation -slowly improving 2. Acute hypoxic respiratory -improving 3. Uncontrolled diabetes -better controlled 4. History of DVT/PE on anticoagulation 5. Hyperlipidemia 6. GERD 7. Anxiety 1. Continue supplemental O2 to keep SPO2 above 92% 2. BiPAP as needed 3. Continue steroids at current dose and we will attempt to further decreased tomorrow 4. Bronchodilators every 4 hours 5. Continue insulin drip while he is on high-dose steroids 6. Continue azithromycin 7. On Lasix with great urine output 8. Pulmonary following 9. Continue Eliquis 10. GI prophylaxis 11. On diet. No feeding 1 hour before and after BiPAP use. Both nursing and patient were advised Nick Palacios MD Jan 04, 2018 10:54
--- NOTE | 2018-01-04 11:06 | HHI.PR ---
Subjective History of Present Illness Patient still have SOB/ Wheezing on Bipap off and on , high blood sugar on Insulin drip blood sugar still up and down.. check Lab in AM Discussed with patient and SHAZIA Shahid at bed side. Leukocytosis better Low Potassium resolved. Review of Systems Constitutional Constitutional: Fatigue, Weakness Pulmonary Respiratory: Coughing, Shortness of Breath, Wheezing Allergic/Immunologic Allergic/Immunologic: Asthma Vitals/Results Vital Signs Vital Signs Date Time Temp Pulse Resp B/P (MAP) Pulse Ox O2 Delivery O2 Flow Rate FiO2 01/04/18 10:00 118 01/04/18 08:34 97 Nasal Cannula 4.00 01/04/18 08:00 97 Nasal Cannula 4.00 01/04/18 08:00 83 01/04/18 08:00 98.3 119 35 151/102 (118) 96 01/04/18 06:00 75 01/04/18 04:37 97 40 01/04/18 04:00 97 Nasal Cannula 4.00 01/04/18 04:00 98.4 90 24 165/99 (121) 98 01/04/18 04:00 90 01/04/18 02:00 76 01/04/18 00:00 98.7 82 13 142/90 (107) 97 01/04/18 00:00 97 Nasal Cannula 4.00 01/04/18 00:00 82 01/03/18 22:55 97 40 01/03/18 22:00 100 01/03/18 21:08 97 Nasal Cannula 4.00 01/03/18 20:00 83 01/03/18 20:00 97 Nasal Cannula 4.00 01/03/18 20:00 98.0 83 14 155/89 (111) 98 01/03/18 18:00 100 01/03/18 16:00 98.1 101 22 147/92 (110) 97 01/03/18 16:00 97 Nasal Cannula 4.00 01/03/18 16:00 101 01/03/18 15:54 98 40 01/03/18 14:00 107 01/03/18 12:00 97.9 109 21 157/91 (113) 97 01/03/18 12:00 107 01/03/18 12:00 97 Nasal Cannula 4.00 01/03/18 11:39 98 Nasal Cannula 4.00 CBC/BMP: 01/04/18 0348 01/04/18 0348 Lab Results Laboratory Tests Test 01/03/18 17:12 01/04/18 03:48 Urine Color YELLOW Urine Turbidity CLEAR Urine pH 6.0 Urine Specific [place] 1.032 Urine Protein TRACE mg/dL Urine Glucose (UA) 1000 mg/dL Urine Ketones TRACE mg/dL Urine Occult Blood NEG Urine Nitrite NEG Urine Bilirubin NEG Urine Urobilinogen LESS THAN 2.0 MG/DL Urine Leukocyte Esterase NEG Microscopic Urinalysis Comment CULT NOT INDICATED White Blood Count 13.9 TH/MM3 Red Blood Count 4.58 MIL/MM3 Hemoglobin 13.1 GM/DL Hematocrit 39.3 % Mean Corpuscular Volume 85.8 FL Mean Corpuscular Hemoglobin 28.6 PG Mean Corpuscular Hemoglobin Concent 33.3 % Red Cell Distribution Width 16.9 % Platelet Count 171 TH/MM3 Mean Platelet Volume 7.7 FL Neutrophils (%) (Auto) 92.9 % Lymphocytes (%) (Auto) 3.5 % Monocytes (%) (Auto) 3.5 % Eosinophils (%) (Auto) 0.0 % Basophils (%) (Auto) 0.1 % Neutrophils # (Auto) 12.9 TH/MM3 Lymphocytes # (Auto) 0.5 TH/MM3 Monocytes # (Auto) 0.5 TH/MM3 Eosinophils # (Auto) 0.0 TH/MM3 Basophils # (Auto) 0.0 TH/MM3 CBC Comment AUTO DIFF Differential Comment AUTO DIFF CONFIRMED Blood Urea Nitrogen 24 MG/DL Creatinine 0.93 MG/DL Random Glucose 227 MG/DL Total Protein 6.0 GM/DL Albumin 3.4 GM/DL Calcium Level 8.1 MG/DL Phosphorus Level 2.3 MG/DL Magnesium Level 2.7 MG/DL Alkaline Phosphatase 87 U/L Aspartate Amino Transf (AST/SGOT) 18 U/L Alanine Aminotransferase (ALT/SGPT) 62 U/L Total Bilirubin 0.5 MG/DL Sodium Level 140 MEQ/L Potassium Level 3.8 MEQ/L Chloride Level 101 MEQ/L Carbon Dioxide Level 28.6 MEQ/L Anion Gap 10 MEQ/L Estimat Glomerular Filtration Rate 85 ML/MIN Physical Exam General General Appearance: Well Developed, Well Nourished, Anxious Appearance Remarks Acute respiratory distress on BIPAP. Eyes Eye Exam: Pupils Equal, Pupils Reactive, Sclera White, Extraocular Movement Intact Throat Throat Remarks Oral Thrush. Neck Neck Exam: Neck Supple, Trachea Midline Pulmonary Resp Exam: Diminished Breath Sounds, Labored Resp Remarks Bilateral wheezing and crackles. Cardiology CV Exam: Normal Sinus Rhythm, Tachycardia Gastrointestinal/Abdomen GI Exam: Soft, Non-Tender, Bowel Sounds Present, Distended Musculoskeletal MS Exam: Joints Intact Integumentary Skin Exam: Warm, Dry, Intact Extremeties Extremities Exam: Moderate Edema, Pitting Edema Neurologic Neuro Exam: Alert, Awake, Oriented, Moving All Extremities, No Focal Deficits Psychiatric Psych Exam: Appropriate Responses VTE Prophylaxis VTE Remarks Eliquis PUD Prophylasis PUD Prophylaxis: Protonix Assessment/Plan Assessment/Plan ASSESSMENT AND PLAN: This is a 52-year-old male who came to the ER, diagnosed with: 1. Acute respiratory failure secondary to chronic obstructive pulmonary disease/asthma exacerbation. on BIPAP Now critical care input noted. The patient is on DuoNeb nebulization. The patient also on Solu-Medrol 60 mg every 4 hour. The patient is also on Symbicort inhaler, Singulair 10 mg p.o. daily. Pulmonary input noted. Further recommendation per pulmonary. 2. History of COPD/asthma. Continue home medication. 3. History of benign prostatic hypertrophy. Continue with Flomax 0.4 mg p.o. daily. 4. History of hyperlipidemia. Continue with Lipitor 40 mg p.o. daily. 5. Diabetes mellitus. ADA 1800 calorie diet. NovoLog low dose sliding scale. Check blood sugar with meals and at bedtime. Continue Metformin 500 mg twice a day. We will monitor blood sugar closely. Had High blood sugar above 600 on insulin drip.. blood sugar in 400 now. 6. History of deep venous thrombosis and pulmonary embolism. The patient is on Eliquis 5 mg twice a day. 7. History of hypertension. Continue with diltiazem 360 mg p.o. daily. 8. Iron deficiency anemia. The patient is on ferrous sulfate 325 mg twice a day. 9. Leg edema and generalized edema. The patient is on Lasix 40 mg daily. 10. Anxiety. Continue lorazepam 0.5 mg twice a day. 11. Gastroesophageal reflux disease. Protonix 40 mg p.o. daily. 12. Depression. Continue with Paxil 20 mg p.o. daily. 13. History of oral thrush. The patient is on nystatin 5 mL 4 times a day. 14. Deep venous thrombosis prophylaxis, Eliquis 5 mg twice a day. 15. Gastrointestinal prophylaxis, Protonix 40 mg p.o. daily. 16. Renal Insufficency on Diuretic. better. 17. Leukocytosis better. 18. Hypokalemia resolved. Check CBC, CMP in the morning. We are going to manage the patient on a daily basis and make recommendations on daily basis. Discussed Condition with: Patient Myron Woodward MD Jan 04, 2018 11:06
[2018-01-04] MEDS: AZITHROMYCIN INJ 500 MG in SODIUM CHLOR 0.9% 250 ML INJ 250 ML IV SCH (12:24)
[2018-01-04] MEDS: CHLORHEXIDINE GLUCONATE 2 % 1 PACK (2 CLOTHS)(taper/protocol) TOPICAL SCH (19:44)
[2018-01-04] MEDS: MONTELUKAST SODIUM 10 MG TAB PO SCH (20:45)
[2018-01-04] MEDS: ATORVASTATIN 40 MG TAB PO SCH (20:45)
[2018-01-05] VITALS (18 sets, daily range): BP systolic 147–171; BP diastolic 81–110; PULSE 68–109; RESP 11–20; TEMP 97.7–98.4; O2SAT 92–98
[2018-01-05] MEDS: RESP: ALBUTEROL 2.5 MG/IPRATROPIUM 0.5 MG NEB (SCH) NEB ×4 (00:30→11:36)
[2018-01-05] MEDS: methylPREDNISolone SOD SUCC 40 MG/1 ML VIAL IV PUSH SCH ×3 (06:27→22:22)
[2018-01-05 07:50] LABS: AUTOMATED NEUTROPHIL # 11.7 TH/MM3 (1.8-7.7); BASOPHIL % 0.1 % (0.0-2.0); HEMATOCRIT 37.5 % (39.0-51.0); HEMOGLOBIN 12.6 GM/DL (13.0-17.0); LYMPH % 3.1 % (9.0-44.0); LYMPHOCYTE # 0.4 TH/MM3 (1.0-4.8); MEAN CELL VOLUME 86.5 FL (80.0-100.0); MEAN CORPUSCULAR HEMOGLOBIN 29.1 PG (27.0-34.0); MEAN CORPUSCULAR HGB CONC 33.7 % (32.0-36.0); MEAN PLATELET VOLUME 7.8 FL (7.0-11.0); MONO % 2.9 % (0.0-8.0); MONOCYTE # 0.4 TH/MM3 (0-0.9); NEUT % 93.9 % (16.0-70.0); PLATELET COUNT 157 TH/MM3 (150-450); RED BLOOD COUNT 4.33 MIL/MM3 (4.50-5.90); RED CELL DISTRIBUTION WIDTH 16.7 % (11.6-17.2); WHITE BLOOD COUNT 12.5 TH/MM3 (4.0-11.0)
[2018-01-05 08:11] LABS: ALT (GPT) 70 U/L (12-78); AST (GOT) 32 U/L (15-37); BICARBONATE 29.1 MEQ/L (21.0-32.0); BLOOD UREA NITROGEN 26 MG/DL (7-18); CALCIUM 8.1 MG/DL (8.5-10.1); CHLORIDE 101 MEQ/L (98-107); CREATININE 0.87 MG/DL (0.60-1.30); GLOMERULAR FILTRATION RATE 92 ML/MIN (>89); GLUCOSE,RANDOM 235 MG/DL (74-106); MAGNESIUM 2.7 MG/DL (1.5-2.5); PHOSPHORUS 2.2 MG/DL (2.5-4.9); SODIUM (NA) 139 MEQ/L (136-145)
[2018-01-05 08:12] LABS: ALKALINE PHOSPHATASE 91 U/L (45-117); TOTAL BILIRUBIN ADULT 0.6 MG/DL (0.2-1.0); TOTAL PROTEIN 5.6 GM/DL (6.4-8.2)
[2018-01-05 08:33] LABS: BANDS 2 % (0-6); LYMPHOCYTES 6 % (9-44); MONOCYTES 2 % (0-8); MYELOCYTES 3 % (0-0); NEUTROPHIL # MANUAL DIFF 11.5 TH/MM3 (1.8-7.7); OVALOCYTES 1+ (NORMAL); POLYS (SEG NEUTROPHILS) 86 % (16-70); PROMYELOCYTES 1 % (0-0)
--- NOTE | 2018-01-05 09:18 | HHI.CCPN ---
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 Patient was admitted on the medicine hill, he was placed on BiPAP, started on Solu-Medrol, bronchodilators and he was evaluated by pulmonology. Despite all the treatment, patient did not improve and earlier today the rapid response was called for worsening respiratory status. Patient was seen immediately on ICU arrival, awake following commands, feeling a little better but not significantly improved since admission. Patient denies any chest pain, palpitations, or any other complaints. 01/02: Insulin drip was stopped over the night, blood sugars this a.m. in the 400s. Patient off BiPAP, used it intermittently over the night. Breathing is improved but he still feels tight. Currently on facemask. Denies any chest pain, palpitations, abdominal pain. Had bowel movement this morning. T-max of 98.8. 01/03: No events over the night. Patient using intermittently BiPAP and nasal cannula. He still feels tight and says that this is consistent with his usual course of asthma exacerbations. Otherwise he is in good spirits, denies chest pain, tremor resolved, no palpitations, no abdominal pain, urinating good. 01/04: Patient did well over the night, using BiPAP. This morning he is on nasal cannula, feeling well first day in which shortness of breath significantly improved. No chest pain, no palpitations no other complaints. Blood glucose much improved, however he remains on insulin drip. 01/05: Patient was mostly on BiPAP throughout the night. This morning he still feels pretty tight compared to yesterday. Glucose better controlled and he remains on insulin drip. No other complaints. Objective Vital Signs Date Time Temp Pulse Resp B/P (MAP) Pulse Ox O2 Delivery O2 Flow Rate FiO2 01/05/18 08:00 98.3 76 11 171/110 (130) 95 01/05/18 08:00 Bi-Pap 14.00 40 Intake and Output 01/05/18 01/05/18 01/06/18 08:00 16:00 00:00 Intake Total 800 ml Output Total 1800 ml Balance -1000 ml Result Diagram: 01/05/18 0554 01/05/18 0554 Imaging Last Impressions Chest X-Ray 12/31/17 0852 Signed Impressions: Service Date/Time: Sunday, December 31, 2017 09:20 - CONCLUSION: Normal examination. Anant Andrews MD Objective Remarks General - middle-aged gentleman, awake, in no distress HEENT - pupils equal, reactive, sclerae anicteric, neck is supple, no JVD CV - regular S1, S2, no murmurs, tachycardic Chest - diffuse wheezes, no crackles, good air entry bilateral Abdomen - soft, distended, not tender, BS present Extremities - warm, trace edema over the right lower extremity, no edema over the left, + peripheral pulses Neuro - awake alert and oriented, moves all extremities, motor 5 out of 5 A/P Assessment and Plan 1. Acute asthma exacerbation -very slowly improving 2. Acute hypoxic respiratory -improving 3. Uncontrolled diabetes -better controlled 4. History of DVT/PE on anticoagulation 5. Hyperlipidemia 6. GERD 7. Anxiety 1. Continue supplemental O2 to keep SPO2 above 92% 2. BiPAP as needed 3. Continue steroids at current dose. Patient not ready for additional weaning 4. Bronchodilators every 4 hours 5. Continue insulin drip while he is on high-dose steroids 6. Continue azithromycin 7. Decrease Lasix to 40 daily. Negative more than 8 L since admission 8. Pulmonary following 9. Continue Eliquis 10. GI prophylaxis 11. On diet. No feeding 1 hour before and after BiPAP use. Both nursing and patient were advised Nick Palacios MD Jan 05, 2018 09:18
[2018-01-05] MEDS: FUROSEMIDE 40 MG/4 ML VIAL IV PUSH SCH ×2 (09:29→20:07)
[2018-01-05] MEDS: LORazepam 0.5 MG TAB PO SCH ×2 (09:29→20:07)
[2018-01-05] MEDS: DILTIAZEM-CD 180 MG CAP ER PO SCH (09:30)
[2018-01-05] MEDS: FERROUS SULFATE 325 MG (65 MG ELEMENTAL IRON) TAB PO SCH ×2 (09:30→20:07)
[2018-01-05] MEDS: DOCUSATE SODIUM 50 MG/SENNA 8.6 MG TAB PO SCH ×2 (09:30→20:07)
[2018-01-05] MEDS: guaiFENesin/DEXTROMETHORPHAN 200 MG/20 MG/10 ML CUP PO SCH ×4 (09:30→20:07)
[2018-01-05] MEDS: APIXABAN 5 MG TABLET PO SCH ×2 (09:30→20:07)
[2018-01-05] MEDS: PARoxetine HCL 20 MG TAB PO SCH (09:30)
[2018-01-05] MEDS: PANTOPRAZOLE SOD 40 MG DELAYED RELEASE TAB PO SCH (09:30)
[2018-01-05] MEDS: NYSTATIN SUSP 500,000 U/5 ML CUP SWISH-SWAL SCH ×4 (09:30→20:07)
[2018-01-05] MEDS: POTASSIUM CHLORIDE 20 MEQ CONTROLLED RELEASE TAB PO SCH ×2 (09:30→20:07)
[2018-01-05] MEDS: TAMSULOSIN HCL 0.4 MG CAP PO SCH (09:30)
[2018-01-05] MEDS: SODIUM CHLORIDE 0.9% FLUSH 10 ML FLUSH IV FLUSH SCH ×2 (09:33→20:06)
[2018-01-05] MEDS: BUDESONIDE-FORMOTEROL 160/4.5 MCG INHALER INH SCH ×2 (09:33→20:06)
--- NOTE | 2018-01-05 10:12 | RADRPT ---
EXAM DATE/TIME: 01/05/2018 09:25 [facility] COMPARISON: CHEST SINGLE AP, December 31, 2017, 9:20. INDICATIONS : Pneumonia. MEDICAL HISTORY : Cardiovascular disease. Chronic obstructive pulmonary disease. Diabetes mellitus type II. SURGICAL HISTORY : Appendectomy. ENCOUNTER: Initial ACUITY: 4 - 6 days PAIN SCORE: 0/10 LOCATION: Bilateral chest FINDINGS: A single view of the chest demonstrates the lungs to be symmetrically aerated without evidence of mas s, infiltrate or effusion. Stable linear scarring lower lateral left chest. The cardiomediastinal c ontours are unremarkable. Osseous structures are intact. CONCLUSION: No acute cardiopulmonary disease. Adriel Thompson MD on January 05, 2018 at 10:09 Board Certified Radiologist. This report was verified electronically.
[2018-01-05] MEDS: INSULIN REGULAR (IV INFUSION) 100 UNITS in SODIUM CHLORIDE 0.9% INJ 99 ML IV PRN (12:46)
[2018-01-05] MEDS: AZITHROMYCIN INJ 500 MG in SODIUM CHLOR 0.9% 250 ML INJ 250 ML IV SCH (13:15)
--- NOTE | 2018-01-05 15:07 | HHI.PR ---
Subjective Remarks alert LESS weheezing SOB with mild exertion Objective Vital Signs Date Time Temp Pulse Resp B/P (MAP) Pulse Ox O2 Delivery O2 Flow Rate FiO2 01/05/18 14:00 97 01/05/18 12:00 80 01/05/18 12:00 94 Nasal Cannula 4.00 01/05/18 12:00 98.4 80 20 161/94 (116) 94 01/05/18 11:37 95 40 01/05/18 10:09 94 Nasal Cannula 4.00 01/05/18 10:00 85 01/05/18 08:00 98.3 76 11 171/110 (130) 95 01/05/18 08:00 68 01/05/18 08:00 96 Bi-Pap 14.00 40 01/05/18 06:00 76 01/05/18 04:00 98 Nasal Cannula 4.00 01/05/18 04:00 82 01/05/18 04:00 98.3 82 15 149/92 (111) 94 01/05/18 03:18 96 40 01/05/18 02:00 76 01/05/18 00:30 96 40 01/05/18 00:00 98 Nasal Cannula 4.00 01/05/18 00:00 98.3 82 18 147/81 (103) 98 01/05/18 00:00 82 01/04/18 22:00 80 01/04/18 20:28 95 40 01/04/18 20:00 83 01/04/18 20:00 98.0 83 16 149/87 (107) 94 01/04/18 20:00 97 Nasal Cannula 4.00 01/04/18 18:00 92 01/04/18 16:00 81 01/04/18 16:00 97 Nasal Cannula 4.00 01/04/18 16:00 98.3 103 24 155/95 (115) 93 I/O 01/04/18 01/04/18 01/04/18 01/05/18 01/05/18 01/05/18 07:00 15:00 23:00 07:00 15:00 23:00 Intake Total 900 ml 250 ml 100 ml 800 ml 350 ml Output Total 1500 ml 1600 ml 1800 ml Balance -600 ml 250 ml -1500 ml -1000 ml 350 ml Intake Oral 800 ml 800 ml IV Total 100 ml 250 ml 100 ml 350 ml Output Urine Total 1500 ml 1400 ml 1800 ml Gastric Drainage Total 200 ml # Bowel Movements 1 2 1 Result Diagram: 01/05/18 0554 01/05/18 0554 Objective Remarks GENERAL: SKIN: Warm and dry. HEAD: Atraumatic. Normocephalic. EYES: Pupils equal and round. No scleral icterus. No injection or drainage. ENT: No nasal bleeding or discharge. Mucous membranes pink and moist. NECK: Trachea midline. No JVD. CARDIOVASCULAR: Regular rate and rhythm. RESPIRATORY: No accessory muscle use. WHEEZING BILATERALY to auscultation. Breath sounds equal bilaterally. GASTROINTESTINAL: Abdomen soft, non-tender, nondistended. Hepatic and splenic margins not palpable. MUSCULOSKELETAL: Extremities without clubbing, cyanosis, or edema. No obvious deformities. NEUROLOGICAL: Awake and alert. No obvious cranial nerve deficits. Motor grossly within normal limits. Five out of 5 muscle strength in the arms and legs. Normal speech. PSYCHIATRIC: Appropriate mood and affect; insight and judgment normal. Assessment and Plan Assessment and Plan ass: asthma exacerbation plan O2/ BIPAP BRONCHODILATORS INCREASE ACTIVITY DECREASE STEROIDS Mary Hernandez MD Jan 05, 2018 15:07
[2018-01-05] MEDS: RESP: ALBUTEROL 2.5 MG/IPRATROPIUM 0.5 MG NEB (PRN) NEB ×2 (17:24→20:27)
[2018-01-05] MEDS: MONTELUKAST SODIUM 10 MG TAB PO SCH (20:07)
[2018-01-05] MEDS: ATORVASTATIN 40 MG TAB PO SCH (20:07)
[2018-01-06] VITALS (17 sets, daily range): BP systolic 146–179; BP diastolic 87–118; PULSE 72–106; RESP 12–22; TEMP 97.7–98.5; O2SAT 90–96
[2018-01-06] MEDS: CHLORHEXIDINE GLUCONATE 2 % 1 PACK (2 CLOTHS)(taper/protocol) TOPICAL SCH (03:53)
[2018-01-06] MEDS: methylPREDNISolone SOD SUCC 40 MG/1 ML VIAL IV PUSH SCH ×3 (05:57→22:04)
[2018-01-06 06:18] LABS: AUTOMATED NEUTROPHIL # 12.3 TH/MM3 (1.8-7.7); BASOPHIL % 0.3 % (0.0-2.0); HEMATOCRIT 38.7 % (39.0-51.0); HEMOGLOBIN 13.2 GM/DL (13.0-17.0); LYMPHOCYTE # 0.4 TH/MM3 (1.0-4.8); MEAN CELL VOLUME 85.1 FL (80.0-100.0); MEAN CORPUSCULAR HEMOGLOBIN 29.1 PG (27.0-34.0); MEAN CORPUSCULAR HGB CONC 34.2 % (32.0-36.0); MEAN PLATELET VOLUME 7.7 FL (7.0-11.0); MONO % 2.2 % (0.0-8.0); MONOCYTE # 0.3 TH/MM3 (0-0.9); NEUT % 94.5 % (16.0-70.0); PLATELET COUNT 166 TH/MM3 (150-450); RED BLOOD COUNT 4.54 MIL/MM3 (4.50-5.90); RED CELL DISTRIBUTION WIDTH 16.2 % (11.6-17.2)
[2018-01-06 06:39] LABS: AST (GOT) 25 U/L (15-37); BICARBONATE 28.5 MEQ/L (21.0-32.0); BLOOD UREA NITROGEN 24 MG/DL (7-18); CALCIUM 8.2 MG/DL (8.5-10.1); CHLORIDE 99 MEQ/L (98-107); GLOMERULAR FILTRATION RATE 88 ML/MIN (>89); GLUCOSE,RANDOM 230 MG/DL (74-106); MAGNESIUM 2.4 MG/DL (1.5-2.5); SODIUM (NA) 137 MEQ/L (136-145)
[2018-01-06 06:48] LABS: ALKALINE PHOSPHATASE 94 U/L (45-117); ALT (GPT) 81 U/L (12-78); PHOSPHORUS 3.3 MG/DL (2.5-4.9); TOTAL BILIRUBIN ADULT 0.6 MG/DL (0.2-1.0); TOTAL PROTEIN 5.4 GM/DL (6.4-8.2)
[2018-01-06 09:07] LABS: BANDS 2 % (0-6); CORRECTED NUCLEATED RBC 1 /100 WBC (0-0); LYMPHOCYTES 2 % (9-44); METAMYELOCYTES 1 % (0-1); MONOCYTES 2 % (0-8); NEUTROPHIL # MANUAL DIFF 12.5 TH/MM3 (1.8-7.7); NUCLEATED RED BLOOD CELL 1 (0-0); POLYS (SEG NEUTROPHILS) 93 % (16-70)
[2018-01-06] MEDS: DILTIAZEM-CD 180 MG CAP ER PO SCH (09:08)
[2018-01-06] MEDS: FUROSEMIDE 40 MG/4 ML VIAL IV PUSH SCH (09:08)
[2018-01-06] MEDS: LORazepam 0.5 MG TAB PO SCH ×2 (09:08→20:13)
[2018-01-06] MEDS: DOCUSATE SODIUM 50 MG/SENNA 8.6 MG TAB PO SCH ×2 (09:08→20:13)
[2018-01-06] MEDS: FERROUS SULFATE 325 MG (65 MG ELEMENTAL IRON) TAB PO SCH ×2 (09:09→20:13)
[2018-01-06] MEDS: TAMSULOSIN HCL 0.4 MG CAP PO SCH (09:09)
[2018-01-06] MEDS: POTASSIUM CHLORIDE 20 MEQ CONTROLLED RELEASE TAB PO SCH ×2 (09:09→20:13)
[2018-01-06] MEDS: guaiFENesin/DEXTROMETHORPHAN 200 MG/20 MG/10 ML CUP PO SCH ×4 (09:09→20:11)
[2018-01-06] MEDS: NYSTATIN SUSP 500,000 U/5 ML CUP SWISH-SWAL SCH ×4 (09:09→20:12)
[2018-01-06] MEDS: PARoxetine HCL 20 MG TAB PO SCH (09:09)
[2018-01-06] MEDS: APIXABAN 5 MG TABLET PO SCH ×2 (09:09→20:13)
[2018-01-06] MEDS: PANTOPRAZOLE SOD 40 MG DELAYED RELEASE TAB PO SCH (09:09)
[2018-01-06] MEDS: BUDESONIDE-FORMOTEROL 160/4.5 MCG INHALER INH SCH ×2 (09:10→20:13)
[2018-01-06] MEDS: SODIUM CHLORIDE 0.9% FLUSH 10 ML FLUSH IV FLUSH SCH ×2 (09:10→20:14)
[2018-01-06] MEDS: RESP: ALBUTEROL 2.5 MG/IPRATROPIUM 0.5 MG NEB (PRN) NEB (11:34)
[2018-01-06] MEDS: hydrALAZINE HCL 20 MG/ML VIAL IV PUSH PRN (12:27)
[2018-01-06] MEDS: AZITHROMYCIN INJ 500 MG in SODIUM CHLOR 0.9% 250 ML INJ 250 ML IV SCH (13:57)
--- NOTE | 2018-01-06 14:08 | HHI.CCPN ---
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 Patient was admitted on the medicine hill, he was placed on BiPAP, started on Solu-Medrol, bronchodilators and he was evaluated by pulmonology. Despite all the treatment, patient did not improve and earlier today the rapid response was called for worsening respiratory status. Patient was seen immediately on ICU arrival, awake following commands, feeling a little better but not significantly improved since admission. Patient denies any chest pain, palpitations, or any other complaints. 01/02: Insulin drip was stopped over the night, blood sugars this a.m. in the 400s. Patient off BiPAP, used it intermittently over the night. Breathing is improved but he still feels tight. Currently on facemask. Denies any chest pain, palpitations, abdominal pain. Had bowel movement this morning. T-max of 98.8. 01/03: No events over the night. Patient using intermittently BiPAP and nasal cannula. He still feels tight and says that this is consistent with his usual course of asthma exacerbations. Otherwise he is in good spirits, denies chest pain, tremor resolved, no palpitations, no abdominal pain, urinating good. 01/04: Patient did well over the night, using BiPAP. This morning he is on nasal cannula, feeling well first day in which shortness of breath significantly improved. No chest pain, no palpitations no other complaints. Blood glucose much improved, however he remains on insulin drip. 01/05: Patient was mostly on BiPAP throughout the night. This morning he still feels pretty tight compared to yesterday. Glucose better controlled and he remains on insulin drip. No other complaints. 01/06: Patient currently on 4 L nasal cannula was maintained on BiPAP throughout the night. Expiratory wheezing still present. She continues on insulin infusion to maintain blood glucose levels in the setting of steroid use. Objective Vital Signs Date Time Temp Pulse Resp B/P (MAP) Pulse Ox O2 Delivery O2 Flow Rate FiO2 01/06/18 12:00 102 01/06/18 08:00 97.7 14 167/100 (122) 90 01/06/18 08:00 Bi-Pap 40 01/06/18 04:00 4.00 Intake and Output 01/06/18 01/06/18 01/07/18 08:00 16:00 00:00 Intake Total 480 ml Output Total 1625 ml Balance -1145 ml Result Diagram: 01/06/18 0500 01/06/18 0500 Imaging Last Impressions Chest X-Ray 01/05/18 0000 Signed Impressions: Service Date/Time: Friday, January 05, 2018 09:25 - CONCLUSION: No acute cardiopulmonary disease. Adriel Thompson MD Last Impressions Chest X-Ray 12/31/17 0852 Signed Impressions: Service Date/Time: Sunday, December 31, 2017 09:20 - CONCLUSION: Normal examination. Anant Andrews MD Objective Remarks General -This is a well-developed well-nourished middle-aged gentleman, awake, in no distress HEENT - pupils equal, reactive, sclerae anicteric, neck is supple, no JVD CV - regular S1, S2, no murmurs, tachycardic Chest - diffuse wheezes throughout lung fair, no crackles, good air entry bilateral Abdomen - soft, distended, not tender, BS present Extremities - warm, trace edema over the right lower extremity, no edema over the left, + peripheral pulses Neuro - awake alert and oriented, moves all extremities, motor 5/ 5 A/P Assessment and Plan 1. Acute asthma exacerbation -very slowly improving 2. Acute hypoxic respiratory -improving 3. Uncontrolled diabetes -better controlled 4. History of DVT/PE on anticoagulation 5. Hyperlipidemia 6. GERD 7. Anxiety 1. Continue supplemental O2 to keep SPO2 above 92% 2. BiPAP as needed 3. Continue steroids at current dose. Patient not ready for additional weaning 4. Bronchodilators every 4 hours 5. Continue insulin drip while he is on high-dose steroids 6. Continue azithromycin 7. Continue Lasix to 40 daily. Negative more than 8 L since admission 8. Pulmonary following 9. Continue Eliquis 10. GI prophylaxis 11. Regular diet. No feeding 1 hour before and after BiPAP use. Both nursing and patient were advised Level 2 follow-up Physician Leslie Farris MD January 06, 2018 14:08
[2018-01-06] MEDS: RESP: ALBUTEROL 2.5 MG/IPRATROPIUM 0.5 MG NEB (SCH) NEB ×3 (16:08→23:55)
--- NOTE | 2018-01-06 16:16 | HHI.PR ---
Subjective Remarks alert LESS weheezing SOB with mild exertion Objective Vital Signs Date Time Temp Pulse Resp B/P (MAP) Pulse Ox O2 Delivery O2 Flow Rate FiO2 01/06/18 12:00 102 01/06/18 10:00 100 01/06/18 09:30 96 Nasal Cannula 4.00 01/06/18 08:00 72 01/06/18 08:00 97.7 72 14 167/100 (122) 90 01/06/18 08:00 96 Bi-Pap 40 01/06/18 06:00 72 01/06/18 04:03 96 40 01/06/18 04:00 96 Bi-Pap 4.00 01/06/18 04:00 97.9 94 22 179/116 (137) 96 01/06/18 04:00 94 01/06/18 02:00 77 01/06/18 00:00 80 01/06/18 00:00 94 Bi-Pap 4.00 01/06/18 00:00 97.8 80 14 159/92 (114) 94 01/05/18 22:30 95 40 01/05/18 22:00 103 01/05/18 20:27 95 Nasal Cannula 4.00 01/05/18 20:00 97.7 75 14 161/85 (110) 94 01/05/18 20:00 94 Nasal Cannula 4.00 01/05/18 20:00 75 01/05/18 18:00 94 I/O 01/05/18 01/05/18 01/05/18 01/06/18 01/06/18 01/06/18 07:00 15:00 23:00 07:00 15:00 23:00 Intake Total 800 ml 350 ml 480 ml Output Total 1800 ml 1827 ml 1625 ml Balance -1000 ml 350 ml -1827 ml -1145 ml Intake Oral 800 ml 480 ml IV Total 350 ml Output Urine Total 1800 ml 1825 ml 1625 ml Stool Total 2 ml # Bowel Movements 1 0 Result Diagram: 01/06/18 0500 01/06/18 0500 Objective Remarks GENERAL: SKIN: Warm and dry. HEAD: Atraumatic. Normocephalic. EYES: Pupils equal and round. No scleral icterus. No injection or drainage. ENT: No nasal bleeding or discharge. Mucous membranes pink and moist. NECK: Trachea midline. No JVD. CARDIOVASCULAR: Regular rate and rhythm. RESPIRATORY: No accessory muscle use. WHEEZING BILATERALY to auscultation. Breath sounds equal bilaterally. GASTROINTESTINAL: Abdomen soft, non-tender, nondistended. Hepatic and splenic margins not palpable. MUSCULOSKELETAL: Extremities without clubbing, cyanosis, or edema. No obvious deformities. NEUROLOGICAL: Awake and alert. No obvious cranial nerve deficits. Motor grossly within normal limits. Five out of 5 muscle strength in the arms and legs. Normal speech. PSYCHIATRIC: Appropriate mood and affect; insight and judgment normal. Assessment and Plan Assessment and Plan ass: asthma exacerbation plan O2/ BIPAP BRONCHODILATORS INCREASE ACTIVITY Mary Hernandez MD January 06, 2018 16:16
[2018-01-06] MEDS: MONTELUKAST SODIUM 10 MG TAB PO SCH (20:13)
[2018-01-06] MEDS: ATORVASTATIN 40 MG TAB PO SCH (20:13)
[2018-01-07] VITALS (16 sets, daily range): BP systolic 147–162; BP diastolic 83–102; PULSE 71–110; RESP 12–33; TEMP 98.3–99; O2SAT 93–96
[2018-01-07] MEDS: INSULIN REGULAR (IV INFUSION) 100 UNITS in SODIUM CHLORIDE 0.9% INJ 99 ML IV PRN ×2 (03:47→23:18)
[2018-01-07] MEDS: RESP: ALBUTEROL 2.5 MG/IPRATROPIUM 0.5 MG NEB (SCH) NEB ×6 (03:57→23:39)
--- NOTE | 2018-01-07 04:05 | RADRPT ---
EXAM DATE/TIME: 01/07/2018 02:41 [facility] COMPARISON: CHEST SINGLE AP, January 05, 2018, 9:25. INDICATIONS : Short of breath. MEDICAL HISTORY : Cardiovascular disease. Chronic obstructive pulmonary disease. Diabetes mellitus type II. SURGICAL HISTORY : Appendectomy. ENCOUNTER: Subsequent ACUITY: 1 week PAIN SCORE: 0/10 LOCATION: Bilateral chest FINDINGS: A single view of the chest demonstrates the lungs to be symmetrically aerated with minimal linear ate lectasis or scarring laterally in the left base. Lungs otherwise clear. Heart size is normal. Osseous structures are intact. CONCLUSION: Minimal left basilar atelectasis/scarring. Lungs are otherwise clear. Russ Morrisno MD on January 07, 2018 at 4:02 Board Certified Radiologist. This report was verified electronically.
[2018-01-07] MEDS: methylPREDNISolone SOD SUCC 40 MG/1 ML VIAL IV PUSH SCH ×3 (06:03→22:27)
[2018-01-07 06:49] LABS: AUTOMATED NEUTROPHIL # 11.8 TH/MM3 (1.8-7.7); BASOPHIL % 0.1 % (0.0-2.0); HEMATOCRIT 38.8 % (39.0-51.0); HEMOGLOBIN 13.3 GM/DL (13.0-17.0); LYMPH % 3.6 % (9.0-44.0); LYMPHOCYTE # 0.5 TH/MM3 (1.0-4.8); MEAN CELL VOLUME 84.5 FL (80.0-100.0); MEAN CORPUSCULAR HEMOGLOBIN 29.1 PG (27.0-34.0); MEAN CORPUSCULAR HGB CONC 34.4 % (32.0-36.0); MONOCYTE # 0.4 TH/MM3 (0-0.9); NEUT % 93.3 % (16.0-70.0); PLATELET COUNT 163 TH/MM3 (150-450); RED BLOOD COUNT 4.58 MIL/MM3 (4.50-5.90); RED CELL DISTRIBUTION WIDTH 16.7 % (11.6-17.2); WHITE BLOOD COUNT 12.7 TH/MM3 (4.0-11.0)
[2018-01-07 07:31] LABS: BICARBONATE 25.6 MEQ/L (21.0-32.0); CALCIUM 8.2 MG/DL (8.5-10.1); CREATININE 0.8 MG/DL (0.60-1.30)
[2018-01-07] MEDS: guaiFENesin/DEXTROMETHORPHAN 200 MG/20 MG/10 ML CUP PO SCH ×4 (08:03→21:14)
[2018-01-07] MEDS: LORazepam 0.5 MG TAB PO SCH ×2 (08:03→21:15)
[2018-01-07] MEDS: POTASSIUM CHLORIDE 20 MEQ CONTROLLED RELEASE TAB PO SCH ×2 (08:03→21:15)
[2018-01-07] MEDS: BUDESONIDE-FORMOTEROL 160/4.5 MCG INHALER INH SCH ×2 (08:03→21:14)
[2018-01-07] MEDS: FERROUS SULFATE 325 MG (65 MG ELEMENTAL IRON) TAB PO SCH ×2 (08:03→21:15)
[2018-01-07] MEDS: PANTOPRAZOLE SOD 40 MG DELAYED RELEASE TAB PO SCH (08:03)
[2018-01-07] MEDS: PARoxetine HCL 20 MG TAB PO SCH (08:03)
[2018-01-07] MEDS: NYSTATIN SUSP 500,000 U/5 ML CUP SWISH-SWAL SCH ×4 (08:03→21:14)
[2018-01-07] MEDS: DOCUSATE SODIUM 50 MG/SENNA 8.6 MG TAB PO SCH ×2 (08:04→21:15)
[2018-01-07] MEDS: FUROSEMIDE 40 MG/4 ML VIAL IV PUSH SCH (08:04)
[2018-01-07] MEDS: APIXABAN 5 MG TABLET PO SCH ×2 (08:04→21:15)
[2018-01-07] MEDS: DILTIAZEM-CD 180 MG CAP ER PO SCH (08:04)
[2018-01-07] MEDS: TAMSULOSIN HCL 0.4 MG CAP PO SCH (08:04)
[2018-01-07] MEDS: SODIUM CHLORIDE 0.9% FLUSH 10 ML FLUSH IV FLUSH SCH ×2 (08:05→21:15)
[2018-01-07 08:48] LABS: BANDS 1 % (0-6); CORRECTED NUCLEATED RBC 2 /100 WBC (0-0); LYMPHOCYTES 6 % (9-44); MONOCYTES 5 % (0-8); MYELOCYTES 2 % (0-0); NEUTROPHIL # MANUAL DIFF 11.3 TH/MM3 (1.8-7.7); NUCLEATED RED BLOOD CELL 2 (0-0); POLYS (SEG NEUTROPHILS) 86 % (16-70)
[2018-01-07 08:49] LABS: OVALOCYTES 1+ (NORMAL); TEARDROP RBCS 1+ (NORMAL)
[2018-01-07] MEDS: AZITHROMYCIN INJ 500 MG in SODIUM CHLOR 0.9% 250 ML INJ 250 ML IV SCH (12:46)
--- NOTE | 2018-01-07 14:14 | HHI.CCPN ---
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 Patient was admitted on the medicine hill, he was placed on BiPAP, started on Solu-Medrol, bronchodilators and he was evaluated by pulmonology. Despite all the treatment, patient did not improve and earlier today the rapid response was called for worsening respiratory status. Patient was seen immediately on ICU arrival, awake following commands, feeling a little better but not significantly improved since admission. Patient denies any chest pain, palpitations, or any other complaints. 01/02: Insulin drip was stopped over the night, blood sugars this a.m. in the 400s. Patient off BiPAP, used it intermittently over the night. Breathing is improved but he still feels tight. Currently on facemask. Denies any chest pain, palpitations, abdominal pain. Had bowel movement this morning. T-max of 98.8. 01/03: No events over the night. Patient using intermittently BiPAP and nasal cannula. He still feels tight and says that this is consistent with his usual course of asthma exacerbations. Otherwise he is in good spirits, denies chest pain, tremor resolved, no palpitations, no abdominal pain, urinating good. 01/04: Patient did well over the night, using BiPAP. This morning he is on nasal cannula, feeling well first day in which shortness of breath significantly improved. No chest pain, no palpitations no other complaints. Blood glucose much improved, however he remains on insulin drip. 01/05: Patient was mostly on BiPAP throughout the night. This morning he still feels pretty tight compared to yesterday. Glucose better controlled and he remains on insulin drip. No other complaints. 01/06: Patient currently on 4 L nasal cannula was maintained on BiPAP throughout the night. Expiratory wheezing still present. He continues on insulin infusion to maintain blood glucose levels in the setting of steroid use. 01/07: Intermittent nasal cannula @ 4LPM with BiPAP. Patient this morning evaluation of asthma says he still feels tight but slightly better than the night before. The patient continues on insulin infusion secondary to elevated glucose close levels due to steroid use. Objective Vital Signs Date Time Temp Pulse Resp B/P (MAP) Pulse Ox O2 Delivery O2 Flow Rate FiO2 01/07/18 12:00 93 Nasal Cannula 4.00 01/07/18 12:00 110 01/07/18 12:00 98.4 33 149/102 (118) 01/07/18 04:45 40 Intake and Output 01/07/18 01/07/18 01/07/18 07:59 15:59 23:59 Intake Total 240 ml Output Total 675 ml Balance -435 ml Result Diagram: 01/07/18 0520 01/07/18 0520 Imaging Last Impressions Chest X-Ray 01/07/18 0600 Signed Impressions: Service Date/Time: Sunday, January 07, 2018 02:41 - CONCLUSION: Minimal left basilar atelectasis/scarring. Lungs are otherwise clear. Russ Morrison MD Last Impressions Chest X-Ray 01/05/18 0000 Signed Impressions: Service Date/Time: Friday, January 05, 2018 09:25 - CONCLUSION: No acute cardiopulmonary disease. Adriel Thompson MD Last Impressions Chest X-Ray 12/31/17 0852 Signed Impressions: Service Date/Time: Sunday, December 31, 2017 09:20 - CONCLUSION: Normal examination. Anant Andrews MD Objective Remarks General -This is a well-developed well-nourished middle-aged gentleman, awake, in no distress HEENT - pupils equal, reactive, sclerae anicteric, neck is supple, no JVD CV - regular S1, S2, no murmurs, tachycardic Chest - diffuse wheezes throughout lung fair, no crackles, good air entry bilateral Abdomen - soft, distended, not tender, BS present Extremities - warm, trace edema over the right lower extremity, no edema over the left, + peripheral pulses Neuro - awake alert and oriented, moves all extremities, motor 5/ 5 A/P Assessment and Plan 1. Acute asthma exacerbation -very slowly improving 2. Acute hypoxic respiratory -improving 3. Uncontrolled diabetes -better controlled 4. History of DVT/PE on anticoagulation 5. Hyperlipidemia 6. GERD 7. Anxiety 1. Continue supplemental O2 to keep SPO2 above 92% 2. BiPAP as needed 3. Continue steroids at current dose Methylprednisolone 80mg q 8hr. Patient not ready for additional weaning 4. Bronchodilators every 4 hours 5. Continue insulin drip while he is on high-dose steroids 6. Continue azithromycin 7. Continue Lasix to 40 daily. 8. Pulmonary following 9. Continue Eliquis 10. GI prophylaxis 11. Regular diet. No feeding 1 hour before and after BiPAP use. Both nursing and patient were advised Level 2 follow-up Discussed with VISUAL BASIC PROGRAMMER at bedside ([place]) Physician Leslie Farris MD January 07, 2018 14:14
--- NOTE | 2018-01-07 14:19 | HHI.PR ---
Subjective History of Present Illness Patient seen on 01/06/18. still have SOB/ Wheezing on Bipap off and on , high blood sugar on Insulin drip blood sugar still up and down.. check Lab in AM Discussed with patient and RN at bed side. Leukocytosis monitoring. Review of Systems Constitutional Constitutional: Fatigue, Weakness Pulmonary Respiratory: Coughing, Shortness of Breath, Wheezing Allergic/Immunologic Allergic/Immunologic: Asthma Vitals/Results Vital Signs Vital Signs Date Time Temp Pulse Resp B/P (MAP) Pulse Ox O2 Delivery O2 Flow Rate FiO2 01/07/18 12:00 93 Nasal Cannula 4.00 01/07/18 12:00 110 01/07/18 12:00 98.4 110 33 149/102 (118) 94 01/07/18 10:00 92 01/07/18 09:05 93 01/07/18 08:00 92 Nasal Cannula 4.00 01/07/18 08:00 85 01/07/18 08:00 98.6 85 16 149/83 (105) 93 01/07/18 06:00 71 01/07/18 04:45 96 40 01/07/18 04:00 98.4 87 25 159/98 (118) 95 01/07/18 04:00 95 Bi-Pap 40 01/07/18 04:00 87 01/07/18 03:57 96 40 01/07/18 02:00 79 01/07/18 00:00 96 Bi-Pap 40 01/07/18 00:00 98.3 90 12 147/92 (110) 96 01/07/18 00:00 90 01/06/18 23:55 95 40 01/06/18 22:00 95 01/06/18 21:18 95 BiPAP 40 01/06/18 20:00 90 01/06/18 20:00 94 Bi-Pap 40 01/06/18 20:00 97.9 90 12 146/87 (106) 94 01/06/18 19:10 95 40 01/06/18 18:00 95 01/06/18 16:00 106 01/06/18 16:00 95 Nasal Cannula 4.00 01/06/18 16:00 98.4 106 19 149/93 (111) 96 CBC/BMP: 01/07/18 0520 01/07/18 0520 Lab Results Laboratory Tests Test 01/07/18 05:20 White Blood Count 12.7 TH/MM3 Red Blood Count 4.58 MIL/MM3 Hemoglobin 13.3 GM/DL Hematocrit 38.8 % Mean Corpuscular Volume 84.5 FL Mean Corpuscular Hemoglobin 29.1 PG Mean Corpuscular Hemoglobin Concent 34.4 % Red Cell Distribution Width 16.7 % Platelet Count 163 TH/MM3 Mean Platelet Volume 8.0 FL Neutrophils (%) (Auto) 93.3 % Lymphocytes (%) (Auto) 3.6 % Monocytes (%) (Auto) 3.0 % Eosinophils (%) (Auto) 0.0 % Basophils (%) (Auto) 0.1 % Neutrophils # (Auto) 11.8 TH/MM3 Lymphocytes # (Auto) 0.5 TH/MM3 Monocytes # (Auto) 0.4 TH/MM3 Eosinophils # (Auto) 0.0 TH/MM3 Basophils # (Auto) 0.0 TH/MM3 CBC Comment AUTO DIFF Differential Total Cells Counted 100 Neutrophils % (Manual) 86 % Band Neutrophils % 1 % Lymphocytes % 6 % Monocytes % 5 % Neutrophils # (Manual) 11.3 TH/MM3 Myelocytes 2 % Nucleated Red Blood Cells 2 /100 WBC Differential Comment FINAL DIFF MANUAL Platelet Estimate NORMAL Platelet Morphology Comment NORMAL Tear Drop Cells 1+ Ovalocytes 1+ Blood Urea Nitrogen 21 MG/DL Creatinine 0.80 MG/DL Random Glucose 210 MG/DL Calcium Level 8.2 MG/DL Sodium Level 136 MEQ/L Potassium Level 4.0 MEQ/L Chloride Level 100 MEQ/L Carbon Dioxide Level 25.6 MEQ/L Anion Gap 10 MEQ/L Estimat Glomerular Filtration Rate 101 ML/MIN Physical Exam General General Appearance: Well Developed, Well Nourished, Anxious Appearance Remarks Acute respiratory distress on BIPAP. Eyes Eye Exam: Pupils Equal, Pupils Reactive, Sclera White, Extraocular Movement Intact Throat Throat Remarks Oral Thrush. Neck Neck Exam: Neck Supple, Trachea Midline Pulmonary Resp Exam: Diminished Breath Sounds, Labored Resp Remarks Bilateral wheezing and crackles. Cardiology CV Exam: Normal Sinus Rhythm, Tachycardia Gastrointestinal/Abdomen GI Exam: Soft, Non-Tender, Bowel Sounds Present, Distended Musculoskeletal MS Exam: Joints Intact Integumentary Skin Exam: Warm, Dry, Intact Extremeties Extremities Exam: Moderate Edema, Pitting Edema Neurologic Neuro Exam: Alert, Awake, Oriented, Moving All Extremities, No Focal Deficits Psychiatric Psych Exam: Appropriate Responses VTE Prophylaxis VTE Remarks Eliquis PUD Prophylasis PUD Prophylaxis: Protonix Assessment/Plan Assessment/Plan ASSESSMENT AND PLAN: This is a 52-year-old male who came to the ER, diagnosed with: 1. Acute respiratory failure secondary to chronic obstructive pulmonary disease/asthma exacerbation. on BIPAP Now critical care input noted. The patient is on DuoNeb nebulization. The patient also on Solu-Medrol 60 mg every 4 hour. The patient is also on Symbicort inhaler, Singulair 10 mg p.o. daily. Pulmonary input noted. Further recommendation per pulmonary. 2. History of COPD/asthma. Continue home medication. 3. History of benign prostatic hypertrophy. Continue with Flomax 0.4 mg p.o. daily. 4. History of hyperlipidemia. Continue with Lipitor 40 mg p.o. daily. 5. Diabetes mellitus. ADA 1800 calorie diet. NovoLog low dose sliding scale. Check blood sugar with meals and at bedtime. Continue Metformin 500 mg twice a day. We will monitor blood sugar closely. Had High blood sugar above 600 on insulin drip.. blood sugar in 200 now. 6. History of deep venous thrombosis and pulmonary embolism. The patient is on Eliquis 5 mg twice a day. 7. History of hypertension. Continue with diltiazem 360 mg p.o. daily. 8. Iron deficiency anemia. The patient is on ferrous sulfate 325 mg twice a day. 9. Leg edema and generalized edema. The patient is on Lasix 40 mg daily. 10. Anxiety. Continue lorazepam 0.5 mg twice a day. 11. Gastroesophageal reflux disease. Protonix 40 mg p.o. daily. 12. Depression. Continue with Paxil 20 mg p.o. daily. 13. History of oral thrush. The patient is on nystatin 5 mL 4 times a day. 14. Deep venous thrombosis prophylaxis, Eliquis 5 mg twice a day. 15. Gastrointestinal prophylaxis, Protonix 40 mg p.o. daily. 16. Renal Insufficency on Diuretic. better. 17. Leukocytosis monitoring. 18. Hypokalemia resolved. Check CBC, CMP in the morning. We are going to manage the patient on a daily basis and make recommendations on daily basis. Discussed Condition with: Patient Myron Woodward MD January 07, 2018 14:19
--- NOTE | 2018-01-07 18:37 | HHI.PR ---
Subjective Remarks alert SITTING IN BED ON BIPAP LESS weheezing SOB with mild exertion Objective Vital Signs Date Time Temp Pulse Resp B/P (MAP) Pulse Ox O2 Delivery O2 Flow Rate FiO2 01/07/18 16:00 102 01/07/18 16:00 99.0 102 27 162/86 (111) 93 01/07/18 16:00 93 Nasal Cannula 4.00 01/07/18 14:00 100 01/07/18 12:00 93 Nasal Cannula 4.00 01/07/18 12:00 110 01/07/18 12:00 98.4 110 33 149/102 (118) 94 01/07/18 10:00 92 01/07/18 09:05 93 01/07/18 08:00 92 Nasal Cannula 4.00 01/07/18 08:00 85 01/07/18 08:00 98.6 85 16 149/83 (105) 93 01/07/18 06:00 71 01/07/18 04:45 96 40 01/07/18 04:00 98.4 87 25 159/98 (118) 95 01/07/18 04:00 95 Bi-Pap 40 01/07/18 04:00 87 01/07/18 03:57 96 40 01/07/18 02:00 79 01/07/18 00:00 96 Bi-Pap 40 01/07/18 00:00 98.3 90 12 147/92 (110) 96 01/07/18 00:00 90 01/06/18 23:55 95 40 01/06/18 22:00 95 01/06/18 21:18 95 BiPAP 40 01/06/18 20:00 90 01/06/18 20:00 94 Bi-Pap 40 01/06/18 20:00 97.9 90 12 146/87 (106) 94 01/06/18 19:10 95 40 I/O 01/06/18 01/06/18 01/06/18 01/07/18 01/07/18 01/07/18 07:00 15:00 23:00 07:00 15:00 23:00 Intake Total 484 ml 670 ml 240 ml Output Total 1625 ml 1850 ml 675 ml 3300 ml Balance -1141 ml -1180 ml -435 ml -3300 ml Intake Oral 480 ml 420 ml 240 ml IV Total 4 ml 250 ml Output Urine Total 1625 ml 1850 ml 675 ml 3300 ml # Bowel Movements 0 0 1 Result Diagram: 01/07/1851901/07/18519 Objective Remarks GENERAL: SKIN: Warm and dry. HEAD: Atraumatic. Normocephalic. EYES: Pupils equal and round. No scleral icterus. No injection or drainage. ENT: No nasal bleeding or discharge. Mucous membranes pink and moist. NECK: Trachea midline. No JVD. CARDIOVASCULAR: Regular rate and rhythm. RESPIRATORY: No accessory muscle use. WHEEZING BILATERALY to auscultation. Breath sounds equal bilaterally. GASTROINTESTINAL: Abdomen soft, non-tender, nondistended. Hepatic and splenic margins not palpable. MUSCULOSKELETAL: Extremities without clubbing, cyanosis, or edema. No obvious deformities. NEUROLOGICAL: Awake and alert. No obvious cranial nerve deficits. Motor grossly within normal limits. Five out of 5 muscle strength in the arms and legs. Normal speech. PSYCHIATRIC: Appropriate mood and affect; insight and judgment normal. Assessment and Plan Assessment and Plan ass: asthma exacerbation plan O2/ BIPAP BRONCHODILATORS INCREASE ACTIVITY Mary Hernandez MD January 07, 2018 18:37
[2018-01-07] MEDS: MONTELUKAST SODIUM 10 MG TAB PO SCH (21:15)
[2018-01-07] MEDS: ATORVASTATIN 40 MG TAB PO SCH (21:15)
[2018-01-08] VITALS (16 sets, daily range): BP systolic 147–170; BP diastolic 87–102; PULSE 76–118; RESP 15–27; TEMP 98–98.8; O2SAT 91–97
[2018-01-08] MEDS: RESP: ALBUTEROL 2.5 MG/IPRATROPIUM 0.5 MG NEB (SCH) NEB ×5 (03:17→19:54)
[2018-01-08] MEDS: methylPREDNISolone SOD SUCC 40 MG/1 ML VIAL IV PUSH SCH ×3 (05:58→22:27)
[2018-01-08 07:13] LABS: AUTOMATED NEUTROPHIL # 13.1 TH/MM3 (1.8-7.7); HEMATOCRIT 40.4 % (39.0-51.0); HEMOGLOBIN 13.8 GM/DL (13.0-17.0); LYMPH % 3.7 % (9.0-44.0); LYMPHOCYTE # 0.5 TH/MM3 (1.0-4.8); MEAN CELL VOLUME 85.4 FL (80.0-100.0); MEAN CORPUSCULAR HEMOGLOBIN 29.1 PG (27.0-34.0); MEAN PLATELET VOLUME 7.8 FL (7.0-11.0); MONO % 4.3 % (0.0-8.0); MONOCYTE # 0.6 TH/MM3 (0-0.9); PLATELET COUNT 180 TH/MM3 (150-450); RED BLOOD COUNT 4.73 MIL/MM3 (4.50-5.90); RED CELL DISTRIBUTION WIDTH 16.6 % (11.6-17.2); WHITE BLOOD COUNT 14.2 TH/MM3 (4.0-11.0)
[2018-01-08 07:36] LABS: ALBUMIN 3.1 GM/DL (3.4-5.0); ALT (GPT) 76 U/L (12-78); AST (GOT) 19 U/L (15-37); BICARBONATE 25.9 MEQ/L (21.0-32.0); BLOOD UREA NITROGEN 22 MG/DL (7-18); CALCIUM 8.3 MG/DL (8.5-10.1); CHLORIDE 100 MEQ/L (98-107); CREATININE 0.93 MG/DL (0.60-1.30); GLOMERULAR FILTRATION RATE 85 ML/MIN (>89); GLUCOSE,RANDOM 240 MG/DL (74-106); SODIUM (NA) 137 MEQ/L (136-145)
[2018-01-08 07:38] LABS: ALKALINE PHOSPHATASE 86 U/L (45-117); TOTAL BILIRUBIN ADULT 0.6 MG/DL (0.2-1.0); TOTAL PROTEIN 5.4 GM/DL (6.4-8.2)
[2018-01-08] MEDS: PANTOPRAZOLE SOD 40 MG DELAYED RELEASE TAB PO SCH (07:51)
[2018-01-08] MEDS: DILTIAZEM-CD 180 MG CAP ER PO SCH (07:51)
[2018-01-08] MEDS: FERROUS SULFATE 325 MG (65 MG ELEMENTAL IRON) TAB PO SCH ×2 (07:51→19:28)
[2018-01-08] MEDS: guaiFENesin/DEXTROMETHORPHAN 200 MG/20 MG/10 ML CUP PO SCH ×4 (07:51→19:28)
[2018-01-08] MEDS: POTASSIUM CHLORIDE 20 MEQ CONTROLLED RELEASE TAB PO SCH ×2 (07:51→19:28)
[2018-01-08] MEDS: NYSTATIN SUSP 500,000 U/5 ML CUP SWISH-SWAL SCH ×4 (07:51→19:37)
[2018-01-08] MEDS: APIXABAN 5 MG TABLET PO SCH ×2 (07:52→19:28)
[2018-01-08] MEDS: PARoxetine HCL 20 MG TAB PO SCH (07:52)
[2018-01-08] MEDS: FUROSEMIDE 40 MG/4 ML VIAL IV PUSH SCH (07:52)
[2018-01-08] MEDS: SODIUM CHLORIDE 0.9% FLUSH 10 ML FLUSH IV FLUSH SCH ×2 (07:52→19:29)
[2018-01-08] MEDS: LORazepam 0.5 MG TAB PO SCH ×2 (07:52→19:28)
[2018-01-08] MEDS: TAMSULOSIN HCL 0.4 MG CAP PO SCH (07:52)
[2018-01-08] MEDS: DOCUSATE SODIUM 50 MG/SENNA 8.6 MG TAB PO SCH ×2 (07:52→19:30)
[2018-01-08] MEDS: BUDESONIDE-FORMOTEROL 160/4.5 MCG INHALER INH SCH ×2 (07:53→19:29)
--- NOTE | 2018-01-08 08:33 | HHI.PR ---
Subjective Remarks alert SITTING IN BED LESS weheezing SOB with mild exertion Objective Vital Signs Date Time Temp Pulse Resp B/P (MAP) Pulse Ox O2 Delivery O2 Flow Rate FiO2 01/08/18 07:38 95 Nasal Cannula 4.00 01/08/18 06:00 76 01/08/18 04:00 79 01/08/18 04:00 97 Bi-Pap 40 01/08/18 04:00 98.4 79 18 166/100 (122) 97 01/08/18 03:18 96 40 01/08/18 02:00 84 01/08/18 00:00 85 01/08/18 00:00 91 Bi-Pap 40 01/08/18 00:00 98.3 85 15 148/87 (107) 91 01/07/18 23:39 94 40 01/07/18 22:00 94 01/07/18 22:00 94 01/07/18 20:00 93 4.00 01/07/18 20:00 93 01/07/18 20:00 98.5 93 17 151/86 (107) 94 01/07/18 20:00 94 Nasal Cannula 4.00 01/07/18 18:00 93 01/07/18 16:00 102 01/07/18 16:00 99.0 102 27 162/86 (111) 93 01/07/18 16:00 93 Nasal Cannula 4.00 01/07/18 14:00 100 01/07/18 12:00 93 Nasal Cannula 4.00 01/07/18 12:00 110 01/07/18 12:00 98.4 110 33 149/102 (118) 94 01/07/18 10:00 92 01/07/18 09:05 93 I/O 01/07/18 01/07/18 01/07/18 01/08/18 01/08/18 01/08/18 07:00 15:00 23:00 07:00 15:00 23:00 Intake Total 240 ml 250 ml 340 ml Output Total 675 ml 3300 ml 1100 ml Balance -435 ml 250 ml -3300 ml -760 ml Intake Oral 240 ml 240 ml IV Total 250 ml 100 ml Output Urine Total 675 ml 3300 ml 1100 ml # Bowel Movements 0 1 1 Result Diagram: 01/08/18 0505 01/08/18 0505 Objective Remarks GENERAL: SKIN: Warm and dry. HEAD: Atraumatic. Normocephalic. EYES: Pupils equal and round. No scleral icterus. No injection or drainage. ENT: No nasal bleeding or discharge. Mucous membranes pink and moist. NECK: Trachea midline. No JVD. CARDIOVASCULAR: Regular rate and rhythm. RESPIRATORY: No accessory muscle use. WHEEZING BILATERALY to auscultation. Breath sounds equal bilaterally. GASTROINTESTINAL: Abdomen soft, non-tender, nondistended. Hepatic and splenic margins not palpable. MUSCULOSKELETAL: Extremities without clubbing, cyanosis, or edema. No obvious deformities. NEUROLOGICAL: Awake and alert. No obvious cranial nerve deficits. Motor grossly within normal limits. Five out of 5 muscle strength in the arms and legs. Normal speech. PSYCHIATRIC: Appropriate mood and affect; insight and judgment normal. Assessment and Plan Assessment and Plan ass: asthma exacerbation SLOWLY IMPROVING plan O2/ BIPAP BRONCHODILATORS INCREASE ACTIVITY Mary Hernandez MD January 08, 2018 08:33
[2018-01-08 09:37] LABS: BANDS 4 % (0-6); LYMPHOCYTES 4 % (9-44); METAMYELOCYTES 4 % (0-1); MONOCYTES 4 % (0-8); MYELOCYTES 3 % (0-0); NEUTROPHIL # MANUAL DIFF 13.1 TH/MM3 (1.8-7.7); POLYS (SEG NEUTROPHILS) 81 % (16-70)
[2018-01-08] MEDS: AZITHROMYCIN INJ 500 MG in SODIUM CHLOR 0.9% 250 ML INJ 250 ML IV SCH (13:23)
--- NOTE | 2018-01-08 16:40 | HHI.PR ---
Subjective History of Present Illness Patient still have SOB/ Wheezing on Bipap off and on , high blood sugar on Insulin drip blood sugar still up and down.. check Lab in AM Discussed with patient and SHAZIA Shahid at bed side. Leukocytosis better d/w Dr Martinez Critical care about BIPAP and over all care of patient. Review of Systems Constitutional Constitutional: Fatigue, Weakness Pulmonary Respiratory: Coughing, Shortness of Breath, Wheezing Allergic/Immunologic Allergic/Immunologic: Asthma Vitals/Results Vital Signs Vital Signs Date Time Temp Pulse Resp B/P (MAP) Pulse Ox O2 Delivery O2 Flow Rate FiO2 01/08/18 16:00 101 01/08/18 16:00 94 Nasal Cannula 4.00 01/08/18 14:00 110 01/08/18 12:00 94 Nasal Cannula 4.00 01/08/18 12:00 98.0 100 17 147/91 (109) 92 01/08/18 12:00 100 01/08/18 10:00 110 01/08/18 08:00 93 Nasal Cannula 4.00 01/08/18 08:00 98.8 94 27 170/102 (124) 94 01/08/18 08:00 94 01/08/18 07:38 95 Nasal Cannula 4.00 01/08/18 06:00 76 01/08/18 04:00 79 01/08/18 04:00 97 Bi-Pap 40 01/08/18 04:00 98.4 79 18 166/100 (122) 97 01/08/18 03:18 96 40 01/08/18 02:00 84 01/08/18 00:00 85 01/08/18 00:00 91 Bi-Pap 40 01/08/18 00:00 98.3 85 15 148/87 (107) 91 01/07/18 23:39 94 40 01/07/18 22:00 94 01/07/18 22:00 94 01/07/18 20:00 93 4.00 01/07/18 20:00 93 01/07/18 20:00 98.5 93 17 151/86 (107) 94 01/07/18 20:00 94 Nasal Cannula 4.00 01/07/18 18:00 93 CBC/BMP: 01/08/18 0505 01/08/18 0505 Lab Results Laboratory Tests Test 01/08/18 05:05 White Blood Count 14.2 TH/MM3 Red Blood Count 4.73 MIL/MM3 Hemoglobin 13.8 GM/DL Hematocrit 40.4 % Mean Corpuscular Volume 85.4 FL Mean Corpuscular Hemoglobin 29.1 PG Mean Corpuscular Hemoglobin Concent 34.0 % Red Cell Distribution Width 16.6 % Platelet Count 180 TH/MM3 Mean Platelet Volume 7.8 FL Neutrophils (%) (Auto) 92.0 % Lymphocytes (%) (Auto) 3.7 % Monocytes (%) (Auto) 4.3 % Eosinophils (%) (Auto) 0.0 % Basophils (%) (Auto) 0.0 % Neutrophils # (Auto) 13.1 TH/MM3 Lymphocytes # (Auto) 0.5 TH/MM3 Monocytes # (Auto) 0.6 TH/MM3 Eosinophils # (Auto) 0.0 TH/MM3 Basophils # (Auto) 0.0 TH/MM3 CBC Comment AUTO DIFF Differential Total Cells Counted 100 Neutrophils % (Manual) 81 % Band Neutrophils % 4 % Lymphocytes % 4 % Monocytes % 4 % Neutrophils # (Manual) 13.1 TH/MM3 Metamyelocytes 4 % Myelocytes 3 % Differential Comment FINAL DIFF MANUAL Platelet Estimate NORMAL Platelet Morphology Comment NORMAL Red Cell Morphology Comment NORMAL Blood Urea Nitrogen 22 MG/DL Creatinine 0.93 MG/DL Random Glucose 240 MG/DL Total Protein 5.4 GM/DL Albumin 3.1 GM/DL Calcium Level 8.3 MG/DL Alkaline Phosphatase 86 U/L Aspartate Amino Transf (AST/SGOT) 19 U/L Alanine Aminotransferase (ALT/SGPT) 76 U/L Total Bilirubin 0.6 MG/DL Sodium Level 137 MEQ/L Potassium Level 3.9 MEQ/L Chloride Level 100 MEQ/L Carbon Dioxide Level 25.9 MEQ/L Anion Gap 11 MEQ/L Estimat Glomerular Filtration Rate 85 ML/MIN Physical Exam General General Appearance: Well Developed, Well Nourished, Anxious Appearance Remarks Acute respiratory distress on BIPAP. Eyes Eye Exam: Pupils Equal, Pupils Reactive, Sclera White, Extraocular Movement Intact Throat Throat Remarks Oral Thrush. Neck Neck Exam: Neck Supple, Trachea Midline Pulmonary Resp Exam: Diminished Breath Sounds, Labored Resp Remarks Bilateral wheezing and crackles. Cardiology CV Exam: Normal Sinus Rhythm, Tachycardia Gastrointestinal/Abdomen GI Exam: Soft, Non-Tender, Bowel Sounds Present, Distended Musculoskeletal MS Exam: Joints Intact Integumentary Skin Exam: Warm, Dry, Intact Extremeties Extremities Exam: Moderate Edema, Pitting Edema Neurologic Neuro Exam: Alert, Awake, Oriented, Moving All Extremities, No Focal Deficits Psychiatric Psych Exam: Appropriate Responses VTE Prophylaxis VTE Remarks Eliquis PUD Prophylasis PUD Prophylaxis: Protonix Assessment/Plan Assessment/Plan ASSESSMENT AND PLAN: This is a 52-year-old male who came to the ER, diagnosed with: 1. Acute respiratory failure secondary to chronic obstructive pulmonary disease/asthma exacerbation. on BIPAP Now critical care input noted. The patient is on DuoNeb nebulization. The patient also on Solu-Medrol 60 mg every 4 hour. The patient is also on Symbicort inhaler, Singulair 10 mg p.o. daily. Pulmonary input noted. Further recommendation per pulmonary. 2. History of COPD/asthma. Continue home medication. 3. History of benign prostatic hypertrophy. Continue with Flomax 0.4 mg p.o. daily. 4. History of hyperlipidemia. Continue with Lipitor 40 mg p.o. daily. 5. Diabetes mellitus. ADA 1800 calorie diet. NovoLog low dose sliding scale. Check blood sugar with meals and at bedtime. Continue Metformin 500 mg twice a day. We will monitor blood sugar closely. Had High blood sugar above 600 on insulin drip.. blood sugar in 200 now. 6. History of deep venous thrombosis and pulmonary embolism. The patient is on Eliquis 5 mg twice a day. 7. History of hypertension. Continue with diltiazem 360 mg p.o. daily. 8. Iron deficiency anemia. The patient is on ferrous sulfate 325 mg twice a day. 9. Leg edema and generalized edema. The patient is on Lasix 40 mg daily. 10. Anxiety. Continue lorazepam 0.5 mg twice a day. 11. Gastroesophageal reflux disease. Protonix 40 mg p.o. daily. 12. Depression. Continue with Paxil 20 mg p.o. daily. 13. History of oral thrush. The patient is on nystatin 5 mL 4 times a day. 14. Deep venous thrombosis prophylaxis, Eliquis 5 mg twice a day. 15. Gastrointestinal prophylaxis, Protonix 40 mg p.o. daily. 16. Renal Insufficency on Diuretic. better. 17. Leukocytosis monitoring. 18. Hypokalemia resolved. Check CBC, CMP in the morning. We are going to manage the patient on a daily basis and make recommendations on daily basis. Discussed Condition with: Patient Myron Woodward MD January 08, 2018 16:40
[2018-01-08] MEDS: INSULIN REGULAR (IV INFUSION) 100 UNITS in SODIUM CHLORIDE 0.9% INJ 99 ML IV PRN (17:16)
--- NOTE | 2018-01-08 17:29 | HHI.CCPN ---
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 Patient was admitted on the medicine hill, he was placed on BiPAP, started on Solu-Medrol, bronchodilators and he was evaluated by pulmonology. Despite all the treatment, patient did not improve and earlier today the rapid response was called for worsening respiratory status. Patient was seen immediately on ICU arrival, awake following commands, feeling a little better but not significantly improved since admission. Patient denies any chest pain, palpitations, or any other complaints. 01/02: Insulin drip was stopped over the night, blood sugars this a.m. in the 400s. Patient off BiPAP, used it intermittently over the night. Breathing is improved but he still feels tight. Currently on facemask. Denies any chest pain, palpitations, abdominal pain. Had bowel movement this morning. T-max of 98.8. 01/03: No events over the night. Patient using intermittently BiPAP and nasal cannula. He still feels tight and says that this is consistent with his usual course of asthma exacerbations. Otherwise he is in good spirits, denies chest pain, tremor resolved, no palpitations, no abdominal pain, urinating good. 01/04: Patient did well over the night, using BiPAP. This morning he is on nasal cannula, feeling well first day in which shortness of breath significantly improved. No chest pain, no palpitations no other complaints. Blood glucose much improved, however he remains on insulin drip. 01/05: Patient was mostly on BiPAP throughout the night. This morning he still feels pretty tight compared to yesterday. Glucose better controlled and he remains on insulin drip. No other complaints. 01/06: Patient currently on 4 L nasal cannula was maintained on BiPAP throughout the night. Expiratory wheezing still present. He continues on insulin infusion to maintain blood glucose levels in the setting of steroid use. 01/07: Intermittent nasal cannula @ 4LPM with BiPAP. Patient this morning evaluation of asthma says he still feels tight but slightly better than the night before. The patient continues on insulin infusion secondary to elevated glucose close levels due to steroid use. 01/08: No change in status overnight the patient continues to have intermittent use of nasal cannula 4 L/min and BiPAP. Still significant chest tightness and wheezing intermittently. The patient continues on 80 mg q. 8 of methylprednisolone discussed with Dr. De Leon by and Dr. Woodward. Patient to remain in ICU at this time. Continues on insulin infusion Objective Vital Signs Date Time Temp Pulse Resp B/P (MAP) Pulse Ox O2 Delivery O2 Flow Rate FiO2 01/08/18 16:00 101 01/08/18 16:00 94 Nasal Cannula 4.00 01/08/18 12:00 98.0 17 147/91 (109) 01/08/18 04:00 40 Intake and Output 01/08/18 01/08/18 01/09/18 08:00 16:00 00:00 Intake Total 240 ml Output Total 1100 ml Balance -860 ml Result Diagram: 01/08/18 0505 01/08/18 0505 Imaging Last Impressions Chest X-Ray 01/07/18 0600 Signed Impressions: Service Date/Time: Sunday, January 07, 2018 02:41 - CONCLUSION: Minimal left basilar atelectasis/scarring. Lungs are otherwise clear. Russ Morrison MD Last Impressions Chest X-Ray 01/05/18 0000 Signed Impressions: Service Date/Time: Friday, January 05, 2018 09:25 - CONCLUSION: No acute cardiopulmonary disease. Adriel Thompson MD Last Impressions Chest X-Ray 12/31/17 0852 Signed Impressions: Service Date/Time: Sunday, December 31, 2017 09:20 - CONCLUSION: Normal examination. Anant Andrews MD Objective Remarks General -This is a well-developed well-nourished middle-aged gentleman, awake, in no distress HEENT - pupils equal, reactive, sclerae anicteric, neck is supple, no JVD CV - regular S1, S2, no murmurs, tachycardic Chest - diffuse wheezes throughout lung fair, no crackles, good air entry bilateral Abdomen - soft, distended, not tender, BS present Extremities - warm, trace edema over the right lower extremity, no edema over the left, + peripheral pulses Neuro - awake alert and oriented, moves all extremities, motor 5/ 5 A/P Assessment and Plan 1. Acute asthma exacerbation -very slowly improving 2. Acute hypoxic respiratory -improving 3. Uncontrolled diabetes -better controlled 4. History of DVT/PE on anticoagulation 5. Hyperlipidemia 6. GERD 7. Anxiety 1. Continue supplemental O2 to keep SPO2 above 92% 2. BiPAP as needed 3. Will decrease steroids at current dose Methylprednisolone 60mg q 8hr. 4. Bronchodilators every 4 hours 5. Continue insulin drip while he is on high-dose steroids 6. Continue azithromycin 7. Continue Lasix to 40 daily. 8. Pulmonary following 9. Continue Eliquis 10. GI prophylaxis 11. Regular diet. No feeding 1 hour before and after BiPAP use. Both nursing and patient were advised Level 2 follow-up Discussed with patient's primary physician Dr. Woodward, and discussed with perinatal coordinator Dr. Hernandez Discussed with CAR SUPPLIER at bedside ([place]) Physician Leslie Farris MD January 08, 2018 17:29
[2018-01-08] MEDS: MONTELUKAST SODIUM 10 MG TAB PO SCH (19:29)
[2018-01-08] MEDS: ATORVASTATIN 40 MG TAB PO SCH (19:29)
[2018-01-09] VITALS (16 sets, daily range): BP systolic 142–182; BP diastolic 88–103; PULSE 77–126; RESP 14–36; TEMP 97.5–98.9; O2SAT 91–95
[2018-01-09] MEDS: RESP: ALBUTEROL 2.5 MG/IPRATROPIUM 0.5 MG NEB (SCH) NEB ×6 (00:17→20:41)
[2018-01-09] MEDS ORDERED: methylPREDNISolone SOD SUCC 40 MG/1 ML VIAL IV PUSH ONE (01:00)
[2018-01-09 05:52] LABS: AUTOMATED NEUTROPHIL # 13.8 TH/MM3 (1.8-7.7); BASOPHIL % 0.1 % (0.0-2.0); HEMATOCRIT 40.6 % (39.0-51.0); HEMOGLOBIN 13.6 GM/DL (13.0-17.0); LYMPH % 4.5 % (9.0-44.0); LYMPHOCYTE # 0.7 TH/MM3 (1.0-4.8); MEAN CORPUSCULAR HEMOGLOBIN 28.9 PG (27.0-34.0); MEAN CORPUSCULAR HGB CONC 33.6 % (32.0-36.0); MEAN PLATELET VOLUME 7.7 FL (7.0-11.0); MONO % 5.1 % (0.0-8.0); MONOCYTE # 0.8 TH/MM3 (0-0.9); NEUT % 90.3 % (16.0-70.0); PLATELET COUNT 195 TH/MM3 (150-450); RED BLOOD COUNT 4.73 MIL/MM3 (4.50-5.90); RED CELL DISTRIBUTION WIDTH 16.6 % (11.6-17.2); WHITE BLOOD COUNT 15.3 TH/MM3 (4.0-11.0)
[2018-01-09] MEDS: methylPREDNISolone SOD SUCC 40 MG/1 ML VIAL IV PUSH SCH ×3 (05:52→21:27)
[2018-01-09 06:19] LABS: ALBUMIN 2.9 GM/DL (3.4-5.0); AST (GOT) 36 U/L (15-37); BICARBONATE 24.3 MEQ/L (21.0-32.0); BLOOD UREA NITROGEN 24 MG/DL (7-18); CALCIUM 8.5 MG/DL (8.5-10.1); CHLORIDE 101 MEQ/L (98-107); CREATININE 0.91 MG/DL (0.60-1.30); GLOMERULAR FILTRATION RATE 87 ML/MIN (>89); GLUCOSE,RANDOM 238 MG/DL (74-106); SODIUM (NA) 137 MEQ/L (136-145)
[2018-01-09 06:24] LABS: ALKALINE PHOSPHATASE 99 U/L (45-117); ALT (GPT) 99 U/L (12-78); TOTAL BILIRUBIN ADULT 0.5 MG/DL (0.2-1.0); TOTAL PROTEIN 5.2 GM/DL (6.4-8.2)
[2018-01-09 07:42] LABS: BANDS 9 % (0-6); LYMPHOCYTES 7 % (9-44); METAMYELOCYTES 1 % (0-1); MONOCYTES 2 % (0-8); MYELOCYTES 4 % (0-0); NEUTROPHIL # MANUAL DIFF 13.9 TH/MM3 (1.8-7.7); POLYS (SEG NEUTROPHILS) 77 % (16-70)
[2018-01-09] MEDS: POTASSIUM CHLORIDE 20 MEQ CONTROLLED RELEASE TAB PO SCH ×2 (07:43→19:24)
[2018-01-09] MEDS: guaiFENesin/DEXTROMETHORPHAN 200 MG/20 MG/10 ML CUP PO SCH ×4 (07:43→19:24)
[2018-01-09] MEDS: NYSTATIN SUSP 500,000 U/5 ML CUP SWISH-SWAL SCH ×4 (07:43→19:24)
[2018-01-09] MEDS: FERROUS SULFATE 325 MG (65 MG ELEMENTAL IRON) TAB PO SCH ×2 (07:43→19:24)
[2018-01-09] MEDS: DOCUSATE SODIUM 50 MG/SENNA 8.6 MG TAB PO SCH ×2 (07:44→19:25)
[2018-01-09] MEDS: TAMSULOSIN HCL 0.4 MG CAP PO SCH (07:44)
[2018-01-09] MEDS: PARoxetine HCL 20 MG TAB PO SCH (07:44)
[2018-01-09] MEDS: DILTIAZEM-CD 180 MG CAP ER PO SCH (07:44)
[2018-01-09] MEDS: LORazepam 0.5 MG TAB PO SCH ×2 (07:44→19:25)
[2018-01-09] MEDS: APIXABAN 5 MG TABLET PO SCH ×2 (07:44→19:24)
[2018-01-09] MEDS: SODIUM CHLORIDE 0.9% FLUSH 10 ML FLUSH IV FLUSH SCH ×2 (07:45→19:25)
[2018-01-09] MEDS: FUROSEMIDE 40 MG/4 ML VIAL IV PUSH SCH (07:45)
[2018-01-09] MEDS: PANTOPRAZOLE SOD 40 MG DELAYED RELEASE TAB PO SCH (07:46)
[2018-01-09] MEDS: BUDESONIDE-FORMOTEROL 160/4.5 MCG INHALER INH SCH ×2 (07:46→19:26)
[2018-01-09] MEDS: hydrALAZINE HCL 20 MG/ML VIAL IV PUSH PRN ×2 (07:54→16:03)
--- NOTE | 2018-01-09 09:12 | HHI.PR ---
Subjective Remarks alert SITTING IN BED NO DISTRESS SOB with mild exertion Objective Vital Signs Date Time Temp Pulse Resp B/P (MAP) Pulse Ox O2 Delivery O2 Flow Rate FiO2 01/09/18 08:00 98.0 103 27 182/103 (129) 94 01/09/18 08:00 96 Nasal Cannula 4.00 01/09/18 08:00 88 01/09/18 07:44 95 Nasal Cannula 4.00 01/09/18 06:00 80 01/09/18 04:00 98.9 77 15 152/89 (110) 92 01/09/18 04:00 77 01/09/18 04:00 92 Nasal Cannula 4.00 01/09/18 03:42 94 Nasal Cannula 4.00 01/09/18 02:00 85 01/09/18 01:43 92 40 01/09/18 00:00 91 Nasal Cannula 4.00 01/09/18 00:00 101 01/09/18 00:00 93 Nasal Cannula 4.00 01/09/18 00:00 98.3 101 14 148/88 (108) 91 01/08/18 23:31 94 40 01/08/18 22:00 118 01/08/18 20:00 98 01/08/18 20:00 93 Nasal Cannula 4.00 01/08/18 20:00 98.5 98 16 167/93 (117) 93 01/08/18 19:54 93 Nasal Cannula 4.00 01/08/18 18:00 117 01/08/18 16:00 101 01/08/18 16:00 98.8 101 18 155/88 (110) 95 01/08/18 16:00 94 Nasal Cannula 4.00 01/08/18 14:00 110 01/08/18 12:00 94 Nasal Cannula 4.00 01/08/18 12:00 98.0 100 17 147/91 (109) 92 01/08/18 12:00 100 01/08/18 10:00 110 I/O 01/08/18 01/08/18 01/08/18 01/09/18 01/09/18 01/09/18 07:00 15:00 23:00 07:00 15:00 23:00 Intake Total 340 ml 250 ml 800 ml 500 ml Output Total 1100 ml 2800 ml 850 ml Balance -760 ml 250 ml -2000 ml -350 ml Intake Oral 240 ml 800 ml 500 ml IV Total 100 ml 250 ml Output Urine Total 1100 ml 2800 ml 850 ml # Bowel Movements 1 1 0 Result Diagram: 01/09/1844401/09/18444 Objective Remarks GENERAL: SKIN: Warm and dry. HEAD: Atraumatic. Normocephalic. EYES: Pupils equal and round. No scleral icterus. No injection or drainage. ENT: No nasal bleeding or discharge. Mucous membranes pink and moist. NECK: Trachea midline. No JVD. CARDIOVASCULAR: Regular rate and rhythm. RESPIRATORY: No accessory muscle use. WHEEZING BILATERALY to auscultation. Breath sounds equal bilaterally. GASTROINTESTINAL: Abdomen soft, non-tender, nondistended. Hepatic and splenic margins not palpable. MUSCULOSKELETAL: Extremities without clubbing, cyanosis, or edema. No obvious deformities. NEUROLOGICAL: Awake and alert. No obvious cranial nerve deficits. Motor grossly within normal limits. Five out of 5 muscle strength in the arms and legs. Normal speech. PSYCHIATRIC: Appropriate mood and affect; insight and judgment normal. Assessment and Plan Assessment and Plan ass: asthma exacerbation SLOWLY IMPROVING plan O2/ BIPAP BRONCHODILATORS INCREASE ACTIVITY Mary Hernandez MD January 09, 2018 09:12
--- NOTE | 2018-01-09 10:03 | HHI.CCPN ---
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 Patient was admitted on the medicine hill, he was placed on BiPAP, started on Solu-Medrol, bronchodilators and he was evaluated by pulmonology. Despite all the treatment, patient did not improve and earlier today the rapid response was called for worsening respiratory status. Patient was seen immediately on ICU arrival, awake following commands, feeling a little better but not significantly improved since admission. Patient denies any chest pain, palpitations, or any other complaints. 01/02: Insulin drip was stopped over the night, blood sugars this a.m. in the 400s. Patient off BiPAP, used it intermittently over the night. Breathing is improved but he still feels tight. Currently on facemask. Denies any chest pain, palpitations, abdominal pain. Had bowel movement this morning. T-max of 98.8. 01/03: No events over the night. Patient using intermittently BiPAP and nasal cannula. He still feels tight and says that this is consistent with his usual course of asthma exacerbations. Otherwise he is in good spirits, denies chest pain, tremor resolved, no palpitations, no abdominal pain, urinating good. 01/04: Patient did well over the night, using BiPAP. This morning he is on nasal cannula, feeling well first day in which shortness of breath significantly improved. No chest pain, no palpitations no other complaints. Blood glucose much improved, however he remains on insulin drip. 01/05: Patient was mostly on BiPAP throughout the night. This morning he still feels pretty tight compared to yesterday. Glucose better controlled and he remains on insulin drip. No other complaints. 01/06: Patient currently on 4 L nasal cannula was maintained on BiPAP throughout the night. Expiratory wheezing still present. He continues on insulin infusion to maintain blood glucose levels in the setting of steroid use. 01/07: Intermittent nasal cannula @ 4LPM with BiPAP. Patient this morning evaluation of asthma says he still feels tight but slightly better than the night before. The patient continues on insulin infusion secondary to elevated glucose close levels due to steroid use. 01/08: No change in status overnight the patient continues to have intermittent use of nasal cannula 4 L/min and BiPAP. Still significant chest tightness and wheezing intermittently. The patient continues on 80 mg q. 8 of methylprednisolone discussed with Dr. De Leon by and Dr. Woodward. Patient to remain in ICU at this time. Continues on insulin infusion 01/09: Patient steroids weaned to 60 mg every 8 yesterday. At 1 AM patient has significant respiratory distress received additional 40 mg of Solu-Medrol. Throughout the night the patient was maintained the majority of the time on nasal cannula 4 L/min O2 sat 94-95%. Objective Vital Signs Date Time Temp Pulse Resp B/P (MAP) Pulse Ox O2 Delivery O2 Flow Rate FiO2 01/09/18 08:00 98.0 103 27 182/103 (129) 94 01/09/18 08:00 Nasal Cannula 4.00 01/09/18 01:43 40 Intake and Output 01/09/18 01/09/18 01/09/18 07:59 15:59 23:59 Intake Total 500 ml Output Total 850 ml Balance -350 ml Result Diagram: 01/09/18 0445 01/09/18 0445 Imaging Last Impressions Chest X-Ray 01/07/18 0600 Signed Impressions: Service Date/Time: Sunday, January 07, 2018 02:41 - CONCLUSION: Minimal left basilar atelectasis/scarring. Lungs are otherwise clear. Russ Morrison MD Last Impressions Chest X-Ray 01/05/18 0000 Signed Impressions: Service Date/Time: Friday, January 05, 2018 09:25 - CONCLUSION: No acute cardiopulmonary disease. Adriel Thompson MD Last Impressions Chest X-Ray 12/31/17 0852 Signed Impressions: Service Date/Time: Sunday, December 31, 2017 09:20 - CONCLUSION: Normal examination. Anant Andrews MD Objective Remarks General -This is a well-developed well-nourished middle-aged gentleman, awake, in no distress, currently on nasal cannula 4 L HEENT - pupils equal, reactive, sclerae anicteric, neck is supple, no JVD CV - regular S1, S2, no murmurs, tachycardic Chest -continued diffuse wheezes throughout lung fair, no crackles, good air entry bilateral Abdomen - soft, distended, not tender, BS present Extremities - warm, trace edema over the right lower extremity, no edema over the left, + peripheral pulses Neuro - awake alert and oriented, moves all extremities, motor 5/ 5 A/P Assessment and Plan 1. Acute asthma exacerbation -very slowly improving 2. Acute hypoxic respiratory -improving 3. Uncontrolled diabetes -better controlled 4. History of DVT/PE on anticoagulation 5. Hyperlipidemia 6. GERD 7. Anxiety 1. Continue supplemental O2 to keep SPO2 above 92% 2. BiPAP as needed 3. Will decrease steroids at current dose Methylprednisolone 60mg q 8hr. 4. Bronchodilators every 4 hours 5. Continue insulin drip while he is on high-dose steroids 6. Continue azithromycin 7. Continue Lasix to 40 daily. 8. Pulmonary following-Dr. Hernandez 9. Continue Eliquis 10. GI prophylaxis 11. Regular diet. No feeding 1 hour before and after BiPAP use. Both nursing and patient were advised Level 2 follow-up Discussed with [employer] TECHNICIAN at bedside ([place]) Physician Leslie Farris MD January 09, 2018 10:03
[2018-01-09] MEDS: INSULIN REGULAR (IV INFUSION) 100 UNITS in SODIUM CHLORIDE 0.9% INJ 99 ML IV PRN (11:01)
--- NOTE | 2018-01-09 12:50 | HHI.PR ---
Subjective History of Present Illness Patient still have SOB/ Wheezing on Bipap off and on , high blood sugar on regular medicine + PRN Medicine.High blood sugar on Insulin drip blood sugar still up and down.. check Lab in AM Discussed with patient and RN at bed side. Leukocytosis worse Review of Systems Constitutional Constitutional: Fatigue, Weakness Pulmonary Respiratory: Coughing, Shortness of Breath, Wheezing Cardiology CV Remarks edema. Allergic/Immunologic Allergic/Immunologic: Asthma Vitals/Results Intake & Output 01/09/18 01/09/18 01/10/18 15:00 23:00 07:00 Intake Total 90 ml Balance 90 ml IV Total 90 ml Vital Signs Vital Signs Date Time Temp Pulse Resp B/P (MAP) Pulse Ox O2 Delivery O2 Flow Rate FiO2 01/09/18 10:00 100 01/09/18 08:00 98.0 103 27 182/103 (129) 94 01/09/18 08:00 96 Nasal Cannula 4.00 01/09/18 08:00 88 01/09/18 07:44 95 Nasal Cannula 4.00 01/09/18 06:00 80 01/09/18 04:00 98.9 77 15 152/89 (110) 92 01/09/18 04:00 77 01/09/18 04:00 92 Nasal Cannula 4.00 01/09/18 03:42 94 Nasal Cannula 4.00 01/09/18 02:00 85 01/09/18 01:43 92 40 01/09/18 00:00 91 Nasal Cannula 4.00 01/09/18 00:00 101 01/09/18 00:00 93 Nasal Cannula 4.00 01/09/18 00:00 98.3 101 14 148/88 (108) 91 01/08/18 23:31 94 40 01/08/18 22:00 118 01/08/18 20:00 98 01/08/18 20:00 93 Nasal Cannula 4.00 01/08/18 20:00 98.5 98 16 167/93 (117) 93 01/08/18 19:54 93 Nasal Cannula 4.00 01/08/18 18:00 117 01/08/18 16:00 101 01/08/18 16:00 98.8 101 18 155/88 (110) 95 01/08/18 16:00 94 Nasal Cannula 4.00 01/08/18 14:00 110 CBC/BMP: 01/09/18 0445 01/09/18 0445 Lab Results Laboratory Tests Test 01/09/18 04:45 White Blood Count 15.3 TH/MM3 Red Blood Count 4.73 MIL/MM3 Hemoglobin 13.6 GM/DL Hematocrit 40.6 % Mean Corpuscular Volume 86.0 FL Mean Corpuscular Hemoglobin 28.9 PG Mean Corpuscular Hemoglobin Concent 33.6 % Red Cell Distribution Width 16.6 % Platelet Count 195 TH/MM3 Mean Platelet Volume 7.7 FL Neutrophils (%) (Auto) 90.3 % Lymphocytes (%) (Auto) 4.5 % Monocytes (%) (Auto) 5.1 % Eosinophils (%) (Auto) 0.0 % Basophils (%) (Auto) 0.1 % Neutrophils # (Auto) 13.8 TH/MM3 Lymphocytes # (Auto) 0.7 TH/MM3 Monocytes # (Auto) 0.8 TH/MM3 Eosinophils # (Auto) 0.0 TH/MM3 Basophils # (Auto) 0.0 TH/MM3 CBC Comment AUTO DIFF Differential Total Cells Counted 100 Neutrophils % (Manual) 77 % Band Neutrophils % 9 % Lymphocytes % 7 % Monocytes % 2 % Neutrophils # (Manual) 13.9 TH/MM3 Metamyelocytes 1 % Myelocytes 4 % Differential Comment FINAL DIFF MANUAL Platelet Estimate NORMAL Platelet Morphology Comment NORMAL Red Cell Morphology Comment NORMAL Blood Urea Nitrogen 24 MG/DL Creatinine 0.91 MG/DL Random Glucose 238 MG/DL Total Protein 5.2 GM/DL Albumin 2.9 GM/DL Calcium Level 8.5 MG/DL Alkaline Phosphatase 99 U/L Aspartate Amino Transf (AST/SGOT) 36 U/L Alanine Aminotransferase (ALT/SGPT) 99 U/L Total Bilirubin 0.5 MG/DL Sodium Level 137 MEQ/L Potassium Level 4.1 MEQ/L Chloride Level 101 MEQ/L Carbon Dioxide Level 24.3 MEQ/L Anion Gap 12 MEQ/L Estimat Glomerular Filtration Rate 87 ML/MIN Physical Exam General General Appearance: Well Developed, Well Nourished, Anxious Appearance Remarks Acute respiratory distress on BIPAP. Eyes Eye Exam: Pupils Equal, Pupils Reactive, Sclera White, Extraocular Movement Intact Throat Throat Remarks Oral Thrush. Neck Neck Exam: Neck Supple, Trachea Midline Pulmonary Resp Exam: Diminished Breath Sounds, Labored Resp Remarks Bilateral wheezing and crackles. Cardiology CV Exam: Normal Sinus Rhythm, Tachycardia Gastrointestinal/Abdomen GI Exam: Soft, Non-Tender, Bowel Sounds Present, Distended Musculoskeletal MS Exam: Joints Intact Integumentary Skin Exam: Warm, Dry, Intact Extremeties Extremities Exam: Moderate Edema, Pitting Edema Neurologic Neuro Exam: Alert, Awake, Oriented, Moving All Extremities, No Focal Deficits Psychiatric Psych Exam: Appropriate Responses VTE Prophylaxis VTE Remarks Eliquis PUD Prophylasis PUD Prophylaxis: Protonix Assessment/Plan Assessment/Plan ASSESSMENT AND PLAN: This is a 52-year-old male who came to the ER, diagnosed with: 1. Acute respiratory failure secondary to chronic obstructive pulmonary disease/asthma exacerbation. on BIPAP Now critical care input noted. The patient is on DuoNeb nebulization. The patient also on Solu-Medrol 80 mg every 4 hour. The patient is also on Symbicort inhaler, Singulair 10 mg p.o. daily. Pulmonary input noted. Further recommendation per pulmonary. 2. History of COPD/asthma. Continue home medication. 3. History of benign prostatic hypertrophy. Continue with Flomax 0.4 mg p.o. daily. 4. History of hyperlipidemia. Continue with Lipitor 40 mg p.o. daily. 5. Diabetes mellitus. ADA 1800 calorie diet. NovoLog low dose sliding scale. Check blood sugar with meals and at bedtime. Continue Metformin 500 mg twice a day. We will monitor blood sugar closely. Had High blood sugar above 600 on insulin drip.. blood sugar in 200 now. 6. History of deep venous thrombosis and pulmonary embolism. The patient is on Eliquis 5 mg twice a day. 7. History of hypertension. Continue with diltiazem 360 mg p.o. daily. 8. Iron deficiency anemia. The patient is on ferrous sulfate 325 mg twice a day. 9. Leg edema and generalized edema. The patient is on Lasix 40 mg daily. 10. Anxiety. Continue lorazepam 0.5 mg twice a day. 11. Gastroesophageal reflux disease. Protonix 40 mg p.o. daily. 12. Depression. Continue with Paxil 20 mg p.o. daily. 13. History of oral thrush. The patient is on nystatin 5 mL 4 times a day. 14. Deep venous thrombosis prophylaxis, Eliquis 5 mg twice a day. 15. Gastrointestinal prophylaxis, Protonix 40 mg p.o. daily. 16. Renal Insufficency on Diuretic. better. 17. Leukocytosis monitoring. 18. Hypokalemia resolved. Check CBC, CMP in the morning. We are going to manage the patient on a daily basis and make recommendations on daily basis. Discussed Condition with: Patient Myron Woodward MD January 09, 2018 12:50
[2018-01-09] MEDS: AZITHROMYCIN INJ 500 MG in SODIUM CHLOR 0.9% 250 ML INJ 250 ML IV SCH (13:44)
[2018-01-09] MEDS: MONTELUKAST SODIUM 10 MG TAB PO SCH (19:24)
[2018-01-09] MEDS: ATORVASTATIN 40 MG TAB PO SCH (19:25)
[2018-01-10] VITALS (18 sets, daily range): BP systolic 149–175; BP diastolic 81–101; PULSE 78–116; RESP 15–25; TEMP 97.7–98.3; O2SAT 90–95
[2018-01-10] MEDS: RESP: ALBUTEROL 2.5 MG/IPRATROPIUM 0.5 MG NEB (SCH) NEB ×5 (00:53→15:37)
[2018-01-10] MEDS: INSULIN REGULAR (IV INFUSION) 100 UNITS in SODIUM CHLORIDE 0.9% INJ 99 ML IV PRN ×2 (04:19→20:51)
[2018-01-10 05:18] LABS: AUTOMATED NEUTROPHIL # 14.2 TH/MM3 (1.8-7.7); BASOPHIL % 0.2 % (0.0-2.0); HEMATOCRIT 40.9 % (39.0-51.0); HEMOGLOBIN 13.7 GM/DL (13.0-17.0); LYMPHOCYTE # 0.6 TH/MM3 (1.0-4.8); MEAN CORPUSCULAR HEMOGLOBIN 29.2 PG (27.0-34.0); MEAN CORPUSCULAR HGB CONC 33.6 % (32.0-36.0); MEAN PLATELET VOLUME 7.7 FL (7.0-11.0); MONO % 5.6 % (0.0-8.0); MONOCYTE # 0.9 TH/MM3 (0-0.9); NEUT % 90.2 % (16.0-70.0); PLATELET COUNT 206 TH/MM3 (150-450); RED CELL DISTRIBUTION WIDTH 16.8 % (11.6-17.2); WHITE BLOOD COUNT 15.7 TH/MM3 (4.0-11.0)
[2018-01-10] MEDS: methylPREDNISolone SOD SUCC 40 MG/1 ML VIAL IV PUSH SCH ×3 (05:23→20:50)
[2018-01-10 05:41] LABS: ALBUMIN 2.9 GM/DL (3.4-5.0); AST (GOT) 18 U/L (15-37); BICARBONATE 25.4 MEQ/L (21.0-32.0); BLOOD UREA NITROGEN 23 MG/DL (7-18); CALCIUM 8.7 MG/DL (8.5-10.1); CHLORIDE 100 MEQ/L (98-107); CREATININE 0.92 MG/DL (0.60-1.30); GLOMERULAR FILTRATION RATE 86 ML/MIN (>89); GLUCOSE,RANDOM 257 MG/DL (74-106); SODIUM (NA) 138 MEQ/L (136-145)
[2018-01-10 05:42] LABS: ALT (GPT) 87 U/L (12-78)
[2018-01-10 05:44] LABS: ALKALINE PHOSPHATASE 103 U/L (45-117); TOTAL BILIRUBIN ADULT 0.5 MG/DL (0.2-1.0); TOTAL PROTEIN 5.3 GM/DL (6.4-8.2)
[2018-01-10 08:37] LABS: BANDS 5 % (0-6); CORRECTED NUCLEATED RBC 3 /100 WBC (0-0); LYMPHOCYTES 4 % (9-44); METAMYELOCYTES 8 % (0-1); MONOCYTES 2 % (0-8); MYELOCYTES 2 % (0-0); NEUTROPHIL # MANUAL DIFF 14.8 TH/MM3 (1.8-7.7); NUCLEATED RED BLOOD CELL 3 (0-0); OVALOCYTES 1+ (NORMAL); POLYS (SEG NEUTROPHILS) 79 % (16-70)
[2018-01-10 08:38] LABS: ACANTHOCYTES OCC (NORMAL)
[2018-01-10] MEDS: SODIUM CHLORIDE 0.9% FLUSH 10 ML FLUSH IV FLUSH SCH ×2 (09:09→20:51)
[2018-01-10] MEDS: BUDESONIDE-FORMOTEROL 160/4.5 MCG INHALER INH SCH ×2 (09:09→20:52)
[2018-01-10] MEDS: guaiFENesin/DEXTROMETHORPHAN 200 MG/20 MG/10 ML CUP PO SCH ×4 (09:10→20:49)
[2018-01-10] MEDS: FUROSEMIDE 40 MG/4 ML VIAL IV PUSH SCH (09:10)
[2018-01-10] MEDS: NYSTATIN SUSP 500,000 U/5 ML CUP SWISH-SWAL SCH ×4 (09:10→20:49)
[2018-01-10] MEDS: DILTIAZEM-CD 180 MG CAP ER PO SCH (09:10)
[2018-01-10] MEDS: PARoxetine HCL 20 MG TAB PO SCH (09:10)
[2018-01-10] MEDS: PANTOPRAZOLE SOD 40 MG DELAYED RELEASE TAB PO SCH (09:10)
[2018-01-10] MEDS: DOCUSATE SODIUM 50 MG/SENNA 8.6 MG TAB PO SCH ×2 (09:11→20:49)
[2018-01-10] MEDS: TAMSULOSIN HCL 0.4 MG CAP PO SCH (09:11)
[2018-01-10] MEDS: APIXABAN 5 MG TABLET PO SCH ×2 (09:11→20:53)
[2018-01-10] MEDS: LORazepam 0.5 MG TAB PO SCH ×2 (09:11→20:49)
[2018-01-10] MEDS: POTASSIUM CHLORIDE 20 MEQ CONTROLLED RELEASE TAB PO SCH ×2 (09:11→20:49)
[2018-01-10] MEDS: FERROUS SULFATE 325 MG (65 MG ELEMENTAL IRON) TAB PO SCH ×2 (09:11→20:49)
--- NOTE | 2018-01-10 09:53 | HHI.CCPN ---
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 Patient was admitted on the medicine hill, he was placed on BiPAP, started on Solu-Medrol, bronchodilators and he was evaluated by pulmonology. Despite all the treatment, patient did not improve and earlier today the rapid response was called for worsening respiratory status. Patient was seen immediately on ICU arrival, awake following commands, feeling a little better but not significantly improved since admission. Patient denies any chest pain, palpitations, or any other complaints. 01/02: Insulin drip was stopped over the night, blood sugars this a.m. in the 400s. Patient off BiPAP, used it intermittently over the night. Breathing is improved but he still feels tight. Currently on facemask. Denies any chest pain, palpitations, abdominal pain. Had bowel movement this morning. T-max of 98.8. 01/03: No events over the night. Patient using intermittently BiPAP and nasal cannula. He still feels tight and says that this is consistent with his usual course of asthma exacerbations. Otherwise he is in good spirits, denies chest pain, tremor resolved, no palpitations, no abdominal pain, urinating good. 01/04: Patient did well over the night, using BiPAP. This morning he is on nasal cannula, feeling well first day in which shortness of breath significantly improved. No chest pain, no palpitations no other complaints. Blood glucose much improved, however he remains on insulin drip. 01/05: Patient was mostly on BiPAP throughout the night. This morning he still feels pretty tight compared to yesterday. Glucose better controlled and he remains on insulin drip. No other complaints. 01/06: Patient currently on 4 L nasal cannula was maintained on BiPAP throughout the night. Expiratory wheezing still present. He continues on insulin infusion to maintain blood glucose levels in the setting of steroid use. 01/07: Intermittent nasal cannula @ 4LPM with BiPAP. Patient this morning evaluation of asthma says he still feels tight but slightly better than the night before. The patient continues on insulin infusion secondary to elevated glucose close levels due to steroid use. 01/08: No change in status overnight the patient continues to have intermittent use of nasal cannula 4 L/min and BiPAP. Still significant chest tightness and wheezing intermittently. The patient continues on 80 mg q. 8 of methylprednisolone discussed with Dr. De Leon by and Dr. Woodward. Patient to remain in ICU at this time. Continues on insulin infusion 01/09: Patient steroids weaned to 60 mg every 8 yesterday. At 1 AM patient has significant respiratory distress received additional 40 mg of Solu-Medrol. Throughout the night the patient was maintained the majority of the time on nasal cannula 4 L/min O2 sat 94-95%. 01/10: No acute events overnight. Wheezing significantly diminished overnight/ today. Patient remained on oxygen at 4 L per nasal cannula throughout the night and this a.m. Patient currently on prednisone 60 mg every 8 hours and insulin infusion will wean prednisone down now to 40 every 8 hours. Objective Vital Signs Date Time Temp Pulse Resp B/P (MAP) Pulse Ox O2 Delivery O2 Flow Rate FiO2 01/10/18 07:54 95 Nasal Cannula 4.00 01/10/18 06:00 82 01/10/18 04:00 98.3 17 149/81 (103) 01/09/18 01:43 40 Intake and Output 01/10/18 01/10/18 01/11/18 08:00 16:00 00:00 Intake Total 750 ml Output Total 1100 ml Balance -350 ml Result Diagram: 01/10/18 0404 01/10/18 0404 Imaging Last Impressions Chest X-Ray 01/07/18 0600 Signed Impressions: Service Date/Time: Sunday, January 07, 2018 02:41 - CONCLUSION: Minimal left basilar atelectasis/scarring. Lungs are otherwise clear. Russ Morrison MD Last Impressions Chest X-Ray 01/05/18 0000 Signed Impressions: Service Date/Time: Friday, January 05, 2018 09:25 - CONCLUSION: No acute cardiopulmonary disease. Adriel Thompson MD Last Impressions Chest X-Ray 12/31/17 0852 Signed Impressions: Service Date/Time: Sunday, December 31, 2017 09:20 - CONCLUSION: Normal examination. Anant Andrews MD Objective Remarks General -This is a well-developed well-nourished middle-aged gentleman, awake, in no distress, currently on nasal cannula 4 L HEENT - pupils equal, reactive, sclerae anicteric, neck is supple, no JVD CV - regular S1, S2, no murmurs, tachycardic Chest -mild expiratory wheezes throughout lung fair, no crackles, good air entry bilateral Abdomen - soft, distended, not tender, BS present Extremities - warm, trace edema over the right lower extremity, no edema over the left, + peripheral pulses Neuro - awake alert and oriented, moves all extremities, motor 5/ 5 A/P Assessment and Plan 1. Acute asthma exacerbation -very slowly improving 2. Acute hypoxic respiratory -improving 3. Uncontrolled diabetes -better controlled 4. History of DVT/PE on anticoagulation 5. Hyperlipidemia 6. GERD 7. Anxiety 1. Continue supplemental O2 to keep SPO2 above 92% 2. BiPAP as needed 3. 5/5 decrease steroids at current dose Methylprednisolone 40mg q 8hr. 4. Bronchodilators every 4 hours 5. Continue insulin drip while he is on high-dose steroids 6. Continue azithromycin 7. Continue Lasix to 40 daily. 8. Pulmonary following-Dr. Hernandez 9. Continue Eliquis 10. GI prophylaxis 11. Regular diet. No feeding 1 hour before and after BiPAP use. Both nursing and patient were advised Level 2 follow-up Discussed with [employer]ION [employer]ER at bedside and patient Physician Leslie Farris MD January 10, 2018 09:53
--- NOTE | 2018-01-10 12:59 | HHI.PR ---
Subjective History of Present Illness Patient SOB/ Wheezing better off Bipap now , high blood sugar on regular medicine + PRN Medicine.High blood sugar on Insulin drip blood sugar still up and down.. check Lab in AM Discussed with patient . Leukocytosis worse Review of Systems Constitutional Constitutional: Fatigue, Weakness Pulmonary Respiratory: Coughing, Shortness of Breath, Wheezing Cardiology CV Remarks edema. Allergic/Immunologic Allergic/Immunologic: Asthma Vitals/Results Vital Signs Vital Signs Date Time Temp Pulse Resp B/P (MAP) Pulse Ox O2 Delivery O2 Flow Rate FiO2 01/10/18 07:54 95 Nasal Cannula 4.00 01/10/18 06:00 82 01/10/18 04:00 98.3 87 17 149/81 (103) 91 01/10/18 04:00 87 01/10/18 04:00 91 Nasal Cannula 4.00 01/10/18 02:00 85 01/10/18 00:00 88 01/10/18 00:00 98.0 88 15 161/97 (118) 90 01/10/18 00:00 90 Nasal Cannula 4.00 01/09/18 22:00 102 01/09/18 20:41 92 Nasal Cannula 4.00 01/09/18 20:00 109 01/09/18 20:00 93 Nasal Cannula 4.00 01/09/18 20:00 98.2 109 21 142/88 (106) 93 01/09/18 20:00 92 Nasal Cannula 4.00 01/09/18 18:00 86 01/09/18 16:00 97.6 126 36 158/95 (116) 94 01/09/18 16:00 126 01/09/18 16:00 92 Nasal Cannula 4.00 01/09/18 14:00 93 CBC/BMP: 01/10/18 0404 01/10/18 0404 Lab Results Laboratory Tests Test 01/10/18 04:04 White Blood Count 15.7 TH/MM3 Red Blood Count 4.70 MIL/MM3 Hemoglobin 13.7 GM/DL Hematocrit 40.9 % Mean Corpuscular Volume 87.0 FL Mean Corpuscular Hemoglobin 29.2 PG Mean Corpuscular Hemoglobin Concent 33.6 % Red Cell Distribution Width 16.8 % Platelet Count 206 TH/MM3 Mean Platelet Volume 7.7 FL Neutrophils (%) (Auto) 90.2 % Lymphocytes (%) (Auto) 4.0 % Monocytes (%) (Auto) 5.6 % Eosinophils (%) (Auto) 0.0 % Basophils (%) (Auto) 0.2 % Neutrophils # (Auto) 14.2 TH/MM3 Lymphocytes # (Auto) 0.6 TH/MM3 Monocytes # (Auto) 0.9 TH/MM3 Eosinophils # (Auto) 0.0 TH/MM3 Basophils # (Auto) 0.0 TH/MM3 CBC Comment AUTO DIFF Differential Total Cells Counted 100 Neutrophils % (Manual) 79 % Band Neutrophils % 5 % Lymphocytes % 4 % Monocytes % 2 % Neutrophils # (Manual) 14.8 TH/MM3 Metamyelocytes 8 % Myelocytes 2 % Nucleated Red Blood Cells 3 /100 WBC Differential Comment FINAL DIFF MANUAL Platelet Estimate NORMAL Platelet Morphology Comment NORMAL Ovalocytes 1+ Acanthocytes OCC Blood Urea Nitrogen 23 MG/DL Creatinine 0.92 MG/DL Random Glucose 257 MG/DL Total Protein 5.3 GM/DL Albumin 2.9 GM/DL Calcium Level 8.7 MG/DL Alkaline Phosphatase 103 U/L Aspartate Amino Transf (AST/SGOT) 18 U/L Alanine Aminotransferase (ALT/SGPT) 87 U/L Total Bilirubin 0.5 MG/DL Sodium Level 138 MEQ/L Potassium Level 4.1 MEQ/L Chloride Level 100 MEQ/L Carbon Dioxide Level 25.4 MEQ/L Anion Gap 13 MEQ/L Estimat Glomerular Filtration Rate 86 ML/MIN Physical Exam General General Appearance: Well Developed, Well Nourished, Anxious Appearance Remarks Acute respiratory distress mild. Eyes Eye Exam: Pupils Equal, Pupils Reactive, Sclera White, Extraocular Movement Intact Throat Throat Remarks Oral Thrush. Neck Neck Exam: Neck Supple, Trachea Midline Pulmonary Resp Exam: Diminished Breath Sounds, Labored Resp Remarks Bilateral wheezing and crackles. Cardiology CV Exam: Normal Sinus Rhythm, Tachycardia Gastrointestinal/Abdomen GI Exam: Soft, Non-Tender, Bowel Sounds Present, Distended Musculoskeletal MS Exam: Joints Intact Integumentary Skin Exam: Warm, Dry, Intact Extremeties Extremities Exam: Moderate Edema, Pitting Edema Neurologic Neuro Exam: Alert, Awake, Oriented, Moving All Extremities, No Focal Deficits Psychiatric Psych Exam: Appropriate Responses VTE Prophylaxis VTE Remarks Eliquis PUD Prophylasis PUD Prophylaxis: Protonix Assessment/Plan Assessment/Plan ASSESSMENT AND PLAN: This is a 52-year-old male who came to the ER, diagnosed with: 1. Acute respiratory failure secondary to chronic obstructive pulmonary disease/asthma exacerbation. on BIPAP Now critical care input noted. The patient is on DuoNeb nebulization. The patient also on Solu-Medrol 40 mg every 4 hour. The patient is also on Symbicort inhaler, Singulair 10 mg p.o. daily. Pulmonary input noted. Further recommendation per pulmonary. 2. History of COPD/asthma. Continue home medication. 3. History of benign prostatic hypertrophy. Continue with Flomax 0.4 mg p.o. daily. 4. History of hyperlipidemia. Continue with Lipitor 40 mg p.o. daily. 5. Diabetes mellitus. ADA 1800 calorie diet. NovoLog low dose sliding scale. Check blood sugar with meals and at bedtime. Continue Metformin 500 mg twice a day. We will monitor blood sugar closely. Had High blood sugar above 600 on insulin drip.. blood sugar in 200 now. 6. History of deep venous thrombosis and pulmonary embolism. The patient is on Eliquis 5 mg twice a day. 7. History of hypertension. Continue with diltiazem 360 mg p.o. daily. 8. Iron deficiency anemia. The patient is on ferrous sulfate 325 mg twice a day. 9. Leg edema and generalized edema. The patient is on Lasix 40 mg daily. 10. Anxiety. Continue lorazepam 0.5 mg twice a day. 11. Gastroesophageal reflux disease. Protonix 40 mg p.o. daily. 12. Depression. Continue with Paxil 20 mg p.o. daily. 13. History of oral thrush. The patient is on nystatin 5 mL 4 times a day. 14. Deep venous thrombosis prophylaxis, Eliquis 5 mg twice a day. 15. Gastrointestinal prophylaxis, Protonix 40 mg p.o. daily. 16. Renal Insufficency on Diuretic. better. 17. Leukocytosis monitoring. 18. Hypokalemia resolved. Check CBC, CMP in the morning. We are going to manage the patient on a daily basis and make recommendations on daily basis. Discussed Condition with: Patient Myron Woodward MD January 10, 2018 12:59
--- NOTE | 2018-01-10 13:59 | HHI.PR ---
Subjective Remarks C/O wheezing and some cough. On o2 4 L. Was off Bipap last PM. Good output Objective Vital Signs Date Time Temp Pulse Resp B/P (MAP) Pulse Ox O2 Delivery O2 Flow Rate FiO2 01/10/18 13:00 100 01/10/18 12:00 90 Nasal Cannula 4.00 01/10/18 12:00 98.1 115 25 175/95 (121) 92 01/10/18 12:00 115 01/10/18 11:00 99 01/10/18 10:00 109 01/10/18 09:00 86 01/10/18 08:00 85 01/10/18 08:00 90 Nasal Cannula 4.00 01/10/18 08:00 98.1 85 16 158/101 (120) 92 01/10/18 07:54 95 Nasal Cannula 4.00 01/10/18 07:00 78 01/10/18 06:00 82 01/10/18 04:00 98.3 87 17 149/81 (103) 91 01/10/18 04:00 87 01/10/18 04:00 91 Nasal Cannula 4.00 01/10/18 02:00 85 01/10/18 00:00 88 01/10/18 00:00 98.0 88 15 161/97 (118) 90 01/10/18 00:00 90 Nasal Cannula 4.00 01/09/18 22:00 102 01/09/18 20:41 92 Nasal Cannula 4.00 01/09/18 20:00 109 01/09/18 20:00 93 Nasal Cannula 4.00 01/09/18 20:00 98.2 109 21 142/88 (106) 93 01/09/18 20:00 92 Nasal Cannula 4.00 01/09/18 18:00 86 01/09/18 16:00 97.6 126 36 158/95 (116) 94 01/09/18 16:00 126 01/09/18 16:00 92 Nasal Cannula 4.00 01/09/18 14:00 93 I/O 01/09/18 01/09/18 01/09/18 01/10/18 01/10/18 01/10/18 07:00 15:00 23:00 07:00 15:00 23:00 Intake Total 500 ml 90 ml 1210 ml 750 ml Output Total 850 ml 2000 ml 1100 ml Balance -350 ml 90 ml -790 ml -350 ml Intake Oral 500 ml 960 ml 650 ml IV Total 90 ml 250 ml 100 ml Output Urine Total 850 ml 2000 ml 1100 ml # Bowel Movements 0 1 1 Result Diagram: 01/10/1840301/10/18403 Objective Remarks GENERAL: Patient is alert. HEENT: Unremarkable. Eyes without icterus. NECK: Without adenopathy or thyroid enlargement. CHEST: Scattered wheeze bilaterally.Decreased breath sounds CARDIAC: PMI distant. S1, S2 audible, 1/6 ejection systolic murmur left sternal border. ABDOMEN: Distended. Bowel sounds audible. EXTREMITIES: No clubbing, cyanosis or edema.No Neuro deficits Assessment and Plan Assessment and Plan IMPRESSION: 1. Asthma exacerbation. 2. Deep venous thrombosis pulmonary embolism by history. 3. Glucose intolerance. 4. Acid reflux. Plan: 1. Continue on Duonebs q6h 2. O2 at 4 L and wean 3. Solumedrol 40 mg IV Q6H 4. BiPAP 12/5 CM at HS 5. BMP in am 6. Symbicort 160/4.5 mcg , 2puffs bid Ashok Valdes MD January 10, 2018 13:59
[2018-01-10] MEDS: AZITHROMYCIN INJ 500 MG in SODIUM CHLOR 0.9% 250 ML INJ 250 ML IV SCH (15:47)
[2018-01-10] MEDS: RESP: ALBUTEROL 2.5 MG/IPRATROPIUM 0.5 MG NEB (PRN) NEB ×2 (20:10→23:39)
[2018-01-10] MEDS: MONTELUKAST SODIUM 10 MG TAB PO SCH (20:49)
[2018-01-10] MEDS: ATORVASTATIN 40 MG TAB PO SCH (20:55)
[2018-01-10] MEDS: hydrALAZINE HCL 20 MG/ML VIAL IV PUSH PRN (22:33)
[2018-01-11] VITALS (21 sets, daily range): BP systolic 155–176; BP diastolic 89–98; PULSE 86–139; RESP 15–18; TEMP 97.3–98.5; O2SAT 92–97
[2018-01-11] MEDS: RESP: ALBUTEROL 2.5 MG/IPRATROPIUM 0.5 MG NEB (PRN) NEB ×2 (03:20→07:51)
[2018-01-11] MEDS: hydrALAZINE HCL 20 MG/ML VIAL IV PUSH PRN (04:45)
[2018-01-11] MEDS: methylPREDNISolone SOD SUCC 40 MG/1 ML VIAL IV PUSH SCH ×3 (04:45→21:39)
[2018-01-11 05:54] LABS: AUTOMATED NEUTROPHIL # 14.7 TH/MM3 (1.8-7.7); BASOPHIL % 0.3 % (0.0-2.0); HEMATOCRIT 40.3 % (39.0-51.0); HEMOGLOBIN 13.6 GM/DL (13.0-17.0); LYMPHOCYTE # 0.5 TH/MM3 (1.0-4.8); MEAN CORPUSCULAR HGB CONC 33.8 % (32.0-36.0); MEAN PLATELET VOLUME 7.5 FL (7.0-11.0); MONOCYTE # 0.8 TH/MM3 (0-0.9); NEUT % 91.7 % (16.0-70.0); PLATELET COUNT 204 TH/MM3 (150-450); RED BLOOD COUNT 4.69 MIL/MM3 (4.50-5.90); RED CELL DISTRIBUTION WIDTH 16.5 % (11.6-17.2)
[2018-01-11 06:28] LABS: ALBUMIN 2.9 GM/DL (3.4-5.0); ALKALINE PHOSPHATASE 116 U/L (45-117); ALT (GPT) 93 U/L (12-78); AST (GOT) 41 U/L (15-37); BICARBONATE 23.9 MEQ/L (21.0-32.0); BLOOD UREA NITROGEN 26 MG/DL (7-18); CALCIUM 8.8 MG/DL (8.5-10.1); CHLORIDE 102 MEQ/L (98-107); CREATININE 0.97 MG/DL (0.60-1.30); GLOMERULAR FILTRATION RATE 81 ML/MIN (>89); GLUCOSE,RANDOM 265 MG/DL (74-106); SODIUM (NA) 137 MEQ/L (136-145); TOTAL BILIRUBIN ADULT 0.5 MG/DL (0.2-1.0); TOTAL PROTEIN 5.2 GM/DL (6.4-8.2)
[2018-01-11 08:55] LABS: BANDS 7 % (0-6); CORRECTED NUCLEATED RBC 1 /100 WBC (0-0); LYMPHOCYTES 1 % (9-44); METAMYELOCYTES 10 % (0-1); MONOCYTES 3 % (0-8); MYELOCYTES 3 % (0-0); NEUTROPHIL # MANUAL DIFF 15.4 TH/MM3 (1.8-7.7); NUCLEATED RED BLOOD CELL 1 (0-0); POLYS (SEG NEUTROPHILS) 76 % (16-70)
[2018-01-11 08:56] LABS: ACANTHOCYTES OCC (NORMAL); OVALOCYTES 1+ (NORMAL)
[2018-01-11] MEDS: guaiFENesin/DEXTROMETHORPHAN 200 MG/20 MG/10 ML CUP PO SCH ×4 (09:17→21:37)
[2018-01-11] MEDS: NYSTATIN SUSP 500,000 U/5 ML CUP SWISH-SWAL SCH ×4 (09:17→21:38)
[2018-01-11] MEDS: PANTOPRAZOLE SOD 40 MG DELAYED RELEASE TAB PO SCH (09:17)
[2018-01-11] MEDS: LORazepam 0.5 MG TAB PO SCH ×2 (09:17→21:38)
[2018-01-11] MEDS: DOCUSATE SODIUM 50 MG/SENNA 8.6 MG TAB PO SCH ×2 (09:18→21:38)
[2018-01-11] MEDS: FERROUS SULFATE 325 MG (65 MG ELEMENTAL IRON) TAB PO SCH ×2 (09:18→21:38)
[2018-01-11] MEDS: DILTIAZEM-CD 180 MG CAP ER PO SCH (09:18)
[2018-01-11] MEDS: APIXABAN 5 MG TABLET PO SCH ×2 (09:18→21:38)
[2018-01-11] MEDS: PARoxetine HCL 20 MG TAB PO SCH (09:18)
[2018-01-11] MEDS: POTASSIUM CHLORIDE 20 MEQ CONTROLLED RELEASE TAB PO SCH ×2 (09:18→21:38)
[2018-01-11] MEDS: SODIUM CHLORIDE 0.9% FLUSH 10 ML FLUSH IV FLUSH SCH ×2 (09:19→21:39)
[2018-01-11] MEDS: FUROSEMIDE 40 MG/4 ML VIAL IV PUSH SCH (09:19)
[2018-01-11] MEDS: BUDESONIDE-FORMOTEROL 160/4.5 MCG INHALER INH SCH ×2 (09:19→21:39)
[2018-01-11] MEDS: TAMSULOSIN HCL 0.4 MG CAP PO SCH (09:21)
--- NOTE | 2018-01-11 11:35 | HHI.CCPN ---
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 Patient was admitted on the medicine hill, he was placed on BiPAP, started on Solu-Medrol, bronchodilators and he was evaluated by pulmonology. Despite all the treatment, patient did not improve and earlier today the rapid response was called for worsening respiratory status. Patient was seen immediately on ICU arrival, awake following commands, feeling a little better but not significantly improved since admission. Patient denies any chest pain, palpitations, or any other complaints. 01/02: Insulin drip was stopped over the night, blood sugars this a.m. in the 400s. Patient off BiPAP, used it intermittently over the night. Breathing is improved but he still feels tight. Currently on facemask. Denies any chest pain, palpitations, abdominal pain. Had bowel movement this morning. T-max of 98.8. 01/03: No events over the night. Patient using intermittently BiPAP and nasal cannula. He still feels tight and says that this is consistent with his usual course of asthma exacerbations. Otherwise he is in good spirits, denies chest pain, tremor resolved, no palpitations, no abdominal pain, urinating good. 01/04: Patient did well over the night, using BiPAP. This morning he is on nasal cannula, feeling well first day in which shortness of breath significantly improved. No chest pain, no palpitations no other complaints. Blood glucose much improved, however he remains on insulin drip. 01/05: Patient was mostly on BiPAP throughout the night. This morning he still feels pretty tight compared to yesterday. Glucose better controlled and he remains on insulin drip. No other complaints. 01/06: Patient currently on 4 L nasal cannula was maintained on BiPAP throughout the night. Expiratory wheezing still present. He continues on insulin infusion to maintain blood glucose levels in the setting of steroid use. 01/07: Intermittent nasal cannula @ 4LPM with BiPAP. Patient this morning evaluation of asthma says he still feels tight but slightly better than the night before. The patient continues on insulin infusion secondary to elevated glucose close levels due to steroid use. 01/08: No change in status overnight the patient continues to have intermittent use of nasal cannula 4 L/min and BiPAP. Still significant chest tightness and wheezing intermittently. The patient continues on 80 mg q. 8 of methylprednisolone discussed with Dr. De Leon by and Dr. Woodward. Patient to remain in ICU at this time. Continues on insulin infusion 01/09: Patient steroids weaned to 60 mg every 8 yesterday. At 1 AM patient has significant respiratory distress received additional 40 mg of Solu-Medrol. Throughout the night the patient was maintained the majority of the time on nasal cannula 4 L/min O2 sat 94-95%. 01/10: No acute events overnight. Wheezing significantly diminished overnight/ today. Patient remained on oxygen at 4 L per nasal cannula throughout the night and this a.m. Patient currently on prednisone 60 mg every 8 hours and insulin infusion will wean prednisone down now to 40 every 8 hours. Subjective 01/11: Afebrile. Remains on 4 L nasal cannula. Did not need BiPAP overnight. Insulin drip currently at 7 units an hour. We will start insulin detemir today 20 units subcu twice daily and attempt to wean off. Remains hyperglycemic. Objective Vital Signs Date Time Temp Pulse Resp B/P (MAP) Pulse Ox O2 Delivery O2 Flow Rate FiO2 01/11/18 07:51 97 Nasal Cannula 4.00 01/11/18 06:00 90 01/11/18 04:00 97.9 15 176/92 (120) 01/09/18 01:43 40 Intake and Output 01/11/18 01/11/18 01/12/18 08:00 16:00 00:00 Output Total 1000 ml Balance -1000 ml Result Diagram: 01/11/18 0440 01/11/18 0440 Other Results Microbiology Date/Time Source Procedure Growth Status 12/31/17 09:00 Blood Peripheral Aerobic Blood Culture - Final NO GROWTH IN 5 DAYS Complete 12/31/17 09:00 Blood Peripheral Anaerobic Blood Culture - Final NO GROWTH IN 5 DAYS Complete 12/31/17 09:30 Nasal Aspirate Influenza Types A,B Antigen (STEFFANIE) - Final NEGATIVE FOR FLU A AND B ANTIGEN.... Complete Imaging Last Impressions Chest X-Ray 01/07/18 0600 Signed Impressions: Service Date/Time: Wednesday, January 07, 2018 02:41 - CONCLUSION: Minimal left basilar atelectasis/scarring. Lungs are otherwise clear. Russ Morrison MD Objective Remarks General -This is a well-developed well-nourished middle-aged gentleman, awake, in no distress, currently on nasal cannula 4 L HEENT - pupils equal, reactive, sclerae anicteric, neck is supple, no JVD CV - regular S1, S2, no murmurs, tachycardic Chest -mild expiratory wheezes throughout lung fair, no crackles, fair air entry bilateral Abdomen - soft, distended, not tender, BS present Extremities - warm, trace edema over the right lower extremity, no edema over the left, + peripheral pulses Neuro - awake alert and oriented, moves all extremities, motor 5/ 5 Urinary Catheter: No Assessment to: Continue Vascular Central Line Catheter: No Assessment to: Continue A/P Assessment and Plan Neuro/Psych: Depression/anxiety Continue paroxetine 20 mg p.o. daily for depression Currently on lorazepam 0.5 mg twice daily for anxiety Acetaminophen 650 mg as needed every 6 hours for fever CV: Essential hypertension Dyslipidemia Currently on diltiazem 360 milligrams daily. Add lisinopril 5 mg twice daily Hydralazine 10 mg IV every hour/Nitropaste to inches every 6 hours as needed hypertension Continue atorvastatin 40 mg p.o. daily/home medication for dyslipidemia Resp: Acute asthma exacerbation/persistent-very slowly improving History of pulmonary embolus secondary to DVT on chronic L chest Dr. Hernandez is his solar project engineer. Currently being followed by Dr. Beasley Currently on budesonide/formoterol 160/4.5 2 puffs twice daily Albuterol/ipratropium aerosols every 4 hours with albuterol aerosols every 2 hours as needed dyspnea Methylprednisolone succinate 40 g IV every 8 hours. On prednisone 10 mg by mouth daily at home Follow-up chest x-ray 5/7 a.m. On levalbuterol 1.25/3 mL ablation twice daily at home Continue montelukast 10 mg p.o. at night Continue furosemide 40 mg IV daily. On p.o. dosage at home GI: Gastroesophageal reflux disease Elevated transaminases likely secondary to congestion ADA diet Pantoprazole 40 mg p.o. daily for GI prophylaxis Docusate sodium/senna 1 tablet twice daily for bowel regimen : No indication for Torres catheter Endo: Diabetes mellitus type 2 uncontrolled Currently on insulin drip at 7 units an hour Start insulin detemir 20 units twice daily and attempt to wean off On Glucophage 500 mg twice daily at home Renal: Creatinine currently within normal limits Monitor urine output Accurate I's and O Heme: Chronic apixaban use History of DVT/PE Leukocytosis -likely steroid-induced Continue iron sulfate 325 mg p.o. twice daily Continue apixaban 5 mg twice daily Monitor CBC daily. Follow trend ID: Currently on azithromycin All cultures no growth to date FEN: On scheduled potassium chloride 20 mEq p.o. twice daily while on furosemide Replace electrolytes as clinically indicated MSK: Elevated BMI 36.6 PT evaluate and treat Weight loss encouraged Access -Utilize peripheral IV. Central line if indicated Prophylaxis -GI -pantoprazole -DVT -SCD/heparin subcu Level 2 follow-up Chuy Garcia MD January 11, 2018 11:35
[2018-01-11] MEDS: RESP: ALBUTEROL 2.5 MG/IPRATROPIUM 0.5 MG NEB (SCH) NEB ×4 (11:37→23:14)
[2018-01-11] MEDS ORDERED: hydrALAZINE HCL 20 MG/ML VIAL IV PUSH PRN (11:45)
[2018-01-11] MEDS ORDERED: LISINOPRIL 5 MG TAB PO ONE (11:45)
[2018-01-11] MEDS ORDERED: NITROGLYCERIN 2% OINT 1 GM PACKET TOPICAL PRN (12:00)
--- NOTE | 2018-01-11 13:08 | RADRPT ---
EXAM DATE/TIME: 01/11/2018 12:30 [facility] COMPARISON: CHEST SINGLE AP, January 07, 2018, 2:41. INDICATIONS : Shortness of breath. MEDICAL HISTORY : Cardiovascular disease. Chronic obstructive pulmonary disease. Diabetes mellitus type II. Asthma. SURGICAL HISTORY : Appendectomy. ENCOUNTER: Subsequent ACUITY: >1 year PAIN SCORE: 0/10 LOCATION: Bilateral chest FINDINGS: Portable AP view of the chest demonstrates a normal-sized cardiac silhouette. No effusion, consolidat ion, or pneumothorax is visualized. The bones and soft tissues demonstrate no acute abnormality. CONCLUSION: No acute cardiopulmonary abnormality is identified. Adin Cheema MD on January 11, 2018 at 13:06 Board Certified Radiologist. This report was verified electronically.
[2018-01-11] MEDS: AZITHROMYCIN INJ 500 MG in SODIUM CHLOR 0.9% 250 ML INJ 250 ML IV SCH (13:10)
--- NOTE | 2018-01-11 13:51 | HHI.PR ---
Subjective Remarks Less wheezing and cough. On o2 4 L. Was off Bipap . Sugar still up. Good output Objective Vital Signs Date Time Temp Pulse Resp B/P (MAP) Pulse Ox O2 Delivery O2 Flow Rate FiO2 01/11/18 13:00 93 01/11/18 12:00 101 01/11/18 12:00 96 Nasal Cannula 4.00 01/11/18 12:00 98.1 101 16 169/98 (121) 94 01/11/18 11:00 101 01/11/18 10:00 110 01/11/18 09:17 105 01/11/18 09:00 107 01/11/18 08:00 86 01/11/18 08:00 96 Nasal Cannula 4.00 01/11/18 08:00 98.5 86 15 168/90 (116) 92 01/11/18 07:51 97 Nasal Cannula 4.00 01/11/18 07:00 87 01/11/18 06:00 90 01/11/18 04:00 97.9 87 15 176/92 (120) 92 01/11/18 04:00 92 Nasal Cannula 4.00 01/11/18 04:00 87 01/11/18 02:00 89 01/11/18 00:00 97.3 96 16 159/95 (116) 94 01/11/18 00:00 96 01/11/18 00:00 94 Nasal Cannula 4.00 01/10/18 22:00 102 01/10/18 20:11 95 Nasal Cannula 4.00 01/10/18 20:00 94 Nasal Cannula 4.00 01/10/18 20:00 110 01/10/18 20:00 97.7 110 22 166/98 (120) 94 01/10/18 18:00 116 01/10/18 16:00 98.1 91 18 161/87 (111) 91 01/10/18 16:00 91 01/10/18 16:00 91 Nasal Cannula 4.00 01/10/18 15:00 95 I/O 01/10/18 01/10/18 01/10/18 01/11/18 01/11/18 01/11/18 07:00 15:00 23:00 07:00 15:00 23:00 Intake Total 750 ml Output Total 1100 ml 400 ml 1000 ml Balance -350 ml -400 ml -1000 ml Intake Oral 650 ml IV Total 100 ml Output Urine Total 1100 ml 400 ml 1000 ml # Bowel Movements 1 1 Result Diagram: 01/11/1843901/11/18439 Objective Remarks GENERAL: Patient is alert. HEENT: Unremarkable. Eyes without icterus. NECK: Without adenopathy or thyroid enlargement. CHEST: Scattered wheeze bilaterally.Decreased breath sounds. CARDIAC: PMI distant. S1, S2 audible, 1/6 ejection systolic murmur left sternal border. ABDOMEN: Distended. Bowel sounds audible. EXTREMITIES: No clubbing, cyanosis or edema.No Neuro deficits Assessment and Plan Assessment and Plan IMPRESSION: 1. Asthma exacerbation. 2. Deep venous thrombosis pulmonary embolism by history. 3. Glucose intolerance. 4. Acid reflux. Plan: 1. Continue on Duonebs q6h 2. O2 at 4 L and wean 3. Solumedrol 40 mg IV q12H 4. BiPAP 12/5 CM at HS PRN 5. Transfer to tele 6. Cont Symbicort 160/4.5 mcg , 2puffs bid 7. D/C Zithromax . Ashok Valdes MD January 11, 2018 13:51
[2018-01-11] MEDS: INSULIN REGULAR (IV INFUSION) 100 UNITS in SODIUM CHLORIDE 0.9% INJ 99 ML IV PRN (18:34)
[2018-01-11] MEDS: LISINOPRIL 5 MG TAB PO SCH (21:38)
[2018-01-11] MEDS: ATORVASTATIN 40 MG TAB PO SCH (21:38)
[2018-01-11] MEDS: MONTELUKAST SODIUM 10 MG TAB PO SCH (21:38)
[2018-01-11] MEDS: INSULIN DETEMIR 100 UNITS/ML VIAL SQ SCH (21:40)
[2018-01-11] MEDS ORDERED: DEXTROSE 50% IN WATER 50 ML VIAL(D50) IV PUSH PRN (22:45)
[2018-01-11] MEDS ORDERED: GLUCAGON 1 MG/ML VIAL OTHER PRN (22:45)
[2018-01-12] VITALS (14 sets, daily range): BP systolic 141–171; BP diastolic 85–101; PULSE 91–130; RESP 12–24; TEMP 95.8–98.1; O2SAT 92–98
[2018-01-12] MEDS: INSULIN ASPART SUPPLEMENTAL SCALE SQ SCH ×6 (00:38→21:43)
[2018-01-12] MEDS: RESP: ALBUTEROL 2.5 MG/IPRATROPIUM 0.5 MG NEB (SCH) NEB ×6 (04:22→23:44)
[2018-01-12 06:04] LABS: AUTOMATED NEUTROPHIL # 17.1 TH/MM3 (1.8-7.7); BASOPHIL % 0.1 % (0.0-2.0); HEMATOCRIT 41.5 % (39.0-51.0); LYMPH % 2.1 % (9.0-44.0); LYMPHOCYTE # 0.4 TH/MM3 (1.0-4.8); MEAN CELL VOLUME 86.4 FL (80.0-100.0); MEAN CORPUSCULAR HEMOGLOBIN 29.2 PG (27.0-34.0); MEAN CORPUSCULAR HGB CONC 33.8 % (32.0-36.0); MONO % 4.3 % (0.0-8.0); MONOCYTE # 0.8 TH/MM3 (0-0.9); NEUT % 93.5 % (16.0-70.0); PLATELET COUNT 188 TH/MM3 (150-450); RED BLOOD COUNT 4.81 MIL/MM3 (4.50-5.90); RED CELL DISTRIBUTION WIDTH 16.8 % (11.6-17.2); WHITE BLOOD COUNT 18.2 TH/MM3 (4.0-11.0)
[2018-01-12 06:06] LABS: ALBUMIN 2.7 GM/DL (3.4-5.0); ALT (GPT) 103 U/L (12-78); AST (GOT) 34 U/L (15-37); BICARBONATE 22.9 MEQ/L (21.0-32.0); BLOOD UREA NITROGEN 26 MG/DL (7-18); CALCIUM 8.4 MG/DL (8.5-10.1); CHLORIDE 102 MEQ/L (98-107); CREATININE 0.99 MG/DL (0.60-1.30); GLOMERULAR FILTRATION RATE 79 ML/MIN (>89); GLUCOSE,RANDOM 311 MG/DL (74-106); MAGNESIUM 2.4 MG/DL (1.5-2.5); PHOSPHORUS 3.9 MG/DL (2.5-4.9); SODIUM (NA) 137 MEQ/L (136-145)
[2018-01-12 06:08] LABS: ALKALINE PHOSPHATASE 113 U/L (45-117); TOTAL BILIRUBIN ADULT 0.5 MG/DL (0.2-1.0); TOTAL PROTEIN 5.1 GM/DL (6.4-8.2)
[2018-01-12 08:04] LABS: BANDS 8 % (0-6); LYMPHOCYTES 2 % (9-44); METAMYELOCYTES 5 % (0-1); MONOCYTES 6 % (0-8); MYELOCYTES 1 % (0-0); NEUTROPHIL # MANUAL DIFF 16.7 TH/MM3 (1.8-7.7); POLYS (SEG NEUTROPHILS) 78 % (16-70)
[2018-01-12 08:05] LABS: OVALOCYTES 1+ (NORMAL)
[2018-01-12] MEDS: DILTIAZEM-CD 180 MG CAP ER PO SCH (08:54)
[2018-01-12] MEDS: TAMSULOSIN HCL 0.4 MG CAP PO SCH (08:54)
[2018-01-12] MEDS: LORazepam 0.5 MG TAB PO SCH ×2 (08:55→21:40)
[2018-01-12] MEDS: APIXABAN 5 MG TABLET PO SCH ×2 (08:55→21:40)
[2018-01-12] MEDS: FERROUS SULFATE 325 MG (65 MG ELEMENTAL IRON) TAB PO SCH ×2 (08:55→21:40)
[2018-01-12] MEDS: POTASSIUM CHLORIDE 20 MEQ CONTROLLED RELEASE TAB PO SCH ×2 (08:55→21:40)
[2018-01-12] MEDS: DOCUSATE SODIUM 50 MG/SENNA 8.6 MG TAB PO SCH ×2 (08:55→21:41)
[2018-01-12] MEDS: PANTOPRAZOLE SOD 40 MG DELAYED RELEASE TAB PO SCH (08:55)
[2018-01-12] MEDS: PARoxetine HCL 20 MG TAB PO SCH (08:55)
[2018-01-12] MEDS: LISINOPRIL 5 MG TAB PO SCH ×2 (08:56→21:51)
[2018-01-12] MEDS: FUROSEMIDE 40 MG/4 ML VIAL IV PUSH SCH (08:56)
[2018-01-12] MEDS: NYSTATIN SUSP 500,000 U/5 ML CUP SWISH-SWAL SCH ×4 (08:56→21:41)
[2018-01-12] MEDS: guaiFENesin/DEXTROMETHORPHAN 200 MG/20 MG/10 ML CUP PO SCH ×4 (08:56→21:41)
[2018-01-12] MEDS: methylPREDNISolone SOD SUCC 40 MG/1 ML VIAL IV PUSH SCH ×2 (08:56→21:39)
[2018-01-12] MEDS: SODIUM CHLORIDE 0.9% FLUSH 10 ML FLUSH IV FLUSH SCH ×2 (08:57→21:39)
[2018-01-12] MEDS: INSULIN DETEMIR 100 UNITS/ML VIAL SQ SCH ×2 (08:57→21:42)
--- NOTE | 2018-01-12 09:26 | HHI.PR ---
Subjective History of Present Illness Patient seen on 01/11/18 SOB/ Wheezing better off Bipap now , high blood sugar on regular medicine + PRN Medicine.High blood sugar on Insulin drip blood sugar still up and down.. check Lab in AM Discussed with patient and wofe at bed side. . Leukocytosis worse Review of Systems Constitutional Constitutional: Fatigue, Weakness Pulmonary Respiratory: Coughing, Shortness of Breath, Wheezing Cardiology CV Remarks edema. Allergic/Immunologic Allergic/Immunologic: Asthma Vitals/Results Vital Signs Vital Signs Date Time Temp Pulse Resp B/P (MAP) Pulse Ox O2 Delivery O2 Flow Rate FiO2 01/12/18 07:47 93 Nasal Cannula 3.00 01/12/18 06:00 104 01/12/18 04:00 97.5 92 12 155/93 (113) 93 01/12/18 04:00 93 Nasal Cannula 3.00 01/12/18 04:00 92 01/12/18 02:00 91 01/12/18 00:00 97.9 95 16 161/98 (119) 92 01/12/18 00:00 92 Nasal Cannula 3.00 01/12/18 00:00 95 01/11/18 22:00 97 01/11/18 20:11 94 Nasal Cannula 3.00 01/11/18 20:00 97.7 89 18 155/89 (111) 92 01/11/18 20:00 92 Nasal Cannula 3.00 01/11/18 20:00 89 01/11/18 18:00 114 01/11/18 17:00 139 01/11/18 16:00 98.0 100 17 155/93 (113) 94 01/11/18 16:00 96 Nasal Cannula 4.00 01/11/18 16:00 100 01/11/18 15:00 109 01/11/18 14:00 105 01/11/18 13:00 93 01/11/18 12:00 101 01/11/18 12:00 96 Nasal Cannula 4.00 01/11/18 12:00 98.1 101 16 169/98 (121) 94 01/11/18 11:00 101 01/11/18 10:00 110 CBC/BMP: 01/12/18 0425 01/12/18 0425 Lab Results Laboratory Tests Test 01/12/18 04:25 White Blood Count 18.2 TH/MM3 Red Blood Count 4.81 MIL/MM3 Hemoglobin 14.0 GM/DL Hematocrit 41.5 % Mean Corpuscular Volume 86.4 FL Mean Corpuscular Hemoglobin 29.2 PG Mean Corpuscular Hemoglobin Concent 33.8 % Red Cell Distribution Width 16.8 % Platelet Count 188 TH/MM3 Mean Platelet Volume 8.0 FL Neutrophils (%) (Auto) 93.5 % Lymphocytes (%) (Auto) 2.1 % Monocytes (%) (Auto) 4.3 % Eosinophils (%) (Auto) 0.0 % Basophils (%) (Auto) 0.1 % Neutrophils # (Auto) 17.1 TH/MM3 Lymphocytes # (Auto) 0.4 TH/MM3 Monocytes # (Auto) 0.8 TH/MM3 Eosinophils # (Auto) 0.0 TH/MM3 Basophils # (Auto) 0.0 TH/MM3 CBC Comment AUTO DIFF Differential Total Cells Counted 100 Neutrophils % (Manual) 78 % Band Neutrophils % 8 % Lymphocytes % 2 % Monocytes % 6 % Neutrophils # (Manual) 16.7 TH/MM3 Metamyelocytes 5 % Myelocytes 1 % Differential Comment FINAL DIFF MANUAL Platelet Estimate NORMAL Platelet Morphology Comment NORMAL Ovalocytes 1+ Red Cell Morphology Comment Blood Urea Nitrogen 26 MG/DL Creatinine 0.99 MG/DL Random Glucose 311 MG/DL Total Protein 5.1 GM/DL Albumin 2.7 GM/DL Calcium Level 8.4 MG/DL Phosphorus Level 3.9 MG/DL Magnesium Level 2.4 MG/DL Alkaline Phosphatase 113 U/L Aspartate Amino Transf (AST/SGOT) 34 U/L Alanine Aminotransferase (ALT/SGPT) 103 U/L Total Bilirubin 0.5 MG/DL Sodium Level 137 MEQ/L Potassium Level 4.4 MEQ/L Chloride Level 102 MEQ/L Carbon Dioxide Level 22.9 MEQ/L Anion Gap 12 MEQ/L Estimat Glomerular Filtration Rate 79 ML/MIN Physical Exam General General Appearance: Well Developed, Well Nourished, Anxious Appearance Remarks Acute respiratory distress mild. Eyes Eye Exam: Pupils Equal, Pupils Reactive, Sclera White, Extraocular Movement Intact Throat Throat Remarks Oral Thrush. Neck Neck Exam: Neck Supple, Trachea Midline Pulmonary Resp Exam: Diminished Breath Sounds, Labored Resp Remarks Bilateral wheezing and crackles. Cardiology CV Exam: Normal Sinus Rhythm, Tachycardia Gastrointestinal/Abdomen GI Exam: Soft, Non-Tender, Bowel Sounds Present, Distended Musculoskeletal MS Exam: Joints Intact Integumentary Skin Exam: Warm, Dry, Intact Extremeties Extremities Exam: Moderate Edema, Pitting Edema Neurologic Neuro Exam: Alert, Awake, Oriented, Moving All Extremities, No Focal Deficits Psychiatric Psych Exam: Appropriate Responses VTE Prophylaxis VTE Remarks Eliquis PUD Prophylasis PUD Prophylaxis: Protonix Assessment/Plan Assessment/Plan ASSESSMENT AND PLAN: This is a 52-year-old male who came to the ER, diagnosed with: 1. Acute respiratory failure secondary to chronic obstructive pulmonary disease/asthma exacerbation. on BIPAP Now critical care input noted. The patient is on DuoNeb nebulization. The patient also on Solu-Medrol 40 mg every 12 hour. The patient is also on Symbicort inhaler, Singulair 10 mg p.o. daily. Pulmonary input noted. Further recommendation per pulmonary. 2. History of COPD/asthma. Continue home medication. 3. History of benign prostatic hypertrophy. Continue with Flomax 0.4 mg p.o. daily. 4. History of hyperlipidemia. Continue with Lipitor 40 mg p.o. daily. 5. Diabetes mellitus. ADA 1800 calorie diet. NovoLog low dose sliding scale. Check blood sugar with meals and at bedtime. Continue Metformin 500 mg twice a day. We will monitor blood sugar closely. Had High blood sugar above 600 on insulin drip.. blood sugar in 200 now. 6. History of deep venous thrombosis and pulmonary embolism. The patient is on Eliquis 5 mg twice a day. 7. History of hypertension. Continue with diltiazem 360 mg p.o. daily. 8. Iron deficiency anemia. The patient is on ferrous sulfate 325 mg twice a day. 9. Leg edema and generalized edema. The patient is on Lasix 40 mg daily. 10. Anxiety. Continue lorazepam 0.5 mg twice a day. 11. Gastroesophageal reflux disease. Protonix 40 mg p.o. daily. 12. Depression. Continue with Paxil 20 mg p.o. daily. 13. History of oral thrush. The patient is on nystatin 5 mL 4 times a day. 14. Deep venous thrombosis prophylaxis, Eliquis 5 mg twice a day. 15. Gastrointestinal prophylaxis, Protonix 40 mg p.o. daily. 16. Renal Insufficency on Diuretic. better. 17. Leukocytosis monitoring. 18. Hypokalemia resolved. Check CBC, CMP in the morning. We are going to manage the patient on a daily basis and make recommendations on daily basis. Discussed Condition with: Patient, Spouse Myron Woodward MD January 12, 2018 09:26
--- NOTE | 2018-01-12 09:50 | HHI.CCPN ---
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 Patient was admitted on the medicine hill, he was placed on BiPAP, started on Solu-Medrol, bronchodilators and he was evaluated by pulmonology. Despite all the treatment, patient did not improve and earlier today the rapid response was called for worsening respiratory status. Patient was seen immediately on ICU arrival, awake following commands, feeling a little better but not significantly improved since admission. Patient denies any chest pain, palpitations, or any other complaints. 01/02: Insulin drip was stopped over the night, blood sugars this a.m. in the 400s. Patient off BiPAP, used it intermittently over the night. Breathing is improved but he still feels tight. Currently on facemask. Denies any chest pain, palpitations, abdominal pain. Had bowel movement this morning. T-max of 98.8. 01/03: No events over the night. Patient using intermittently BiPAP and nasal cannula. He still feels tight and says that this is consistent with his usual course of asthma exacerbations. Otherwise he is in good spirits, denies chest pain, tremor resolved, no palpitations, no abdominal pain, urinating good. 01/04: Patient did well over the night, using BiPAP. This morning he is on nasal cannula, feeling well first day in which shortness of breath significantly improved. No chest pain, no palpitations no other complaints. Blood glucose much improved, however he remains on insulin drip. 01/05: Patient was mostly on BiPAP throughout the night. This morning he still feels pretty tight compared to yesterday. Glucose better controlled and he remains on insulin drip. No other complaints. 01/06: Patient currently on 4 L nasal cannula was maintained on BiPAP throughout the night. Expiratory wheezing still present. He continues on insulin infusion to maintain blood glucose levels in the setting of steroid use. 01/07: Intermittent nasal cannula @ 4LPM with BiPAP. Patient this morning evaluation of asthma says he still feels tight but slightly better than the night before. The patient continues on insulin infusion secondary to elevated glucose close levels due to steroid use. 01/08: No change in status overnight the patient continues to have intermittent use of nasal cannula 4 L/min and BiPAP. Still significant chest tightness and wheezing intermittently. The patient continues on 80 mg q. 8 of methylprednisolone discussed with Dr. De Leon by and Dr. Woodward. Patient to remain in ICU at this time. Continues on insulin infusion 01/09: Patient steroids weaned to 60 mg every 8 yesterday. At 1 AM patient has significant respiratory distress received additional 40 mg of Solu-Medrol. Throughout the night the patient was maintained the majority of the time on nasal cannula 4 L/min O2 sat 94-95%. 01/10: No acute events overnight. Wheezing significantly diminished overnight/ today. Patient remained on oxygen at 4 L per nasal cannula throughout the night and this a.m. Patient currently on prednisone 60 mg every 8 hours and insulin infusion will wean prednisone down now to 40 every 8 hours. 01/11: Afebrile. Remains on 4 L nasal cannula. Did not need BiPAP overnight. Insulin drip currently at 7 units an hour. We will start insulin detemir today 20 units subcu twice daily and attempt to wean off. Remains hyperglycemic. Subjective 01/12: Insulin drip discontinued overnight. Remains on 4 L nasal cannula. Did not require BiPAP overnight. Complaining of swelling in bilateral lower extremities. Objective Vital Signs Date Time Temp Pulse Resp B/P (MAP) Pulse Ox O2 Delivery O2 Flow Rate FiO2 01/12/18 07:47 93 Nasal Cannula 3.00 01/12/18 06:00 104 01/12/18 04:00 97.5 12 155/93 (113) 01/09/18 01:43 40 Intake and Output 01/12/18 01/12/18 01/13/18 08:00 16:00 00:00 Intake Total 540 ml Output Total 1050 ml Balance -510 ml Result Diagram: 01/12/18 0425 01/12/18 0425 Other Results Microbiology Date/Time Source Procedure Growth Status 12/31/17 09:00 Blood Peripheral Aerobic Blood Culture - Final NO GROWTH IN 5 DAYS Complete 12/31/17 09:00 Blood Peripheral Anaerobic Blood Culture - Final NO GROWTH IN 5 DAYS Complete 12/31/17 09:30 Nasal Aspirate Influenza Types A,B Antigen (STEFFANIE) - Final NEGATIVE FOR FLU A AND B ANTIGEN.... Complete Imaging Last Impressions Chest X-Ray 01/11/18 0000 Signed Impressions: Service Date/Time: Thursday, January 11, 2018 12:30 - CONCLUSION: No acute cardiopulmonary abnormality is identified. Adin Cheema MD Objective Remarks General -This is a well-developed well-nourished middle-aged gentleman, awake, in no distress, currently on nasal cannula 4 L HEENT - pupils equal, reactive, sclerae anicteric, neck is supple, no JVD CV - regular S1, S2, no murmurs, tachycardic Chest -mild expiratory wheezes throughout lung fair, no crackles, fair air entry bilateral Abdomen - soft, distended, not tender, BS present Extremities - warm, 1+ bilateral lower extremity edema t, + peripheral pulses Neuro - awake alert and oriented, moves all extremities, motor 5/ 5 Urinary Catheter: No Assessment to: Continue Vascular Central Line Catheter: No Assessment to: Continue A/P Assessment and Plan Neuro/Psych: Depression/anxiety Continue paroxetine 20 mg p.o. daily for depression Currently on lorazepam 0.5 mg twice daily for anxiety Acetaminophen 650 mg as needed every 6 hours for fever CV: Essential hypertension Dyslipidemia Currently on diltiazem 360 milligrams daily. Add lisinopril 5 mg twice daily Hydralazine 10 mg IV every hour/Nitropaste to inches every 6 hours as needed hypertension Continue atorvastatin 40 mg p.o. 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 Currently being followed by Dr. Beasley Currently on budesonide/formoterol 160/4.5 2 puffs twice daily Albuterol/ipratropium aerosols every 4 hours with albuterol aerosols every 2 hours as needed dyspnea Methylprednisolone succinate 40 g IV every 8 hours. On prednisone 10 mg by mouth daily at home Follow-up chest x-ray 5/7 a.m. On levalbuterol 1.25/3 mL ablation twice daily at home Continue montelukast 10 mg p.o. at night Continue furosemide 40 mg IV daily. On p.o. dosage at home GI: Gastroesophageal reflux disease Elevated transaminases likely secondary to congestion 1800 ADA diet Pantoprazole 40 mg p.o. daily for GI prophylaxis Docusate sodium/senna 1 tablet twice daily for bowel regimen : No indication for Torres catheter Endo: Diabetes mellitus type 2 uncontrolled Insulin drip discontinued 5/6 p.m. Currently on NovoLog sliding scale insulin Accu-Cheks before meals/at bedtime maintain euglycemia/high regimen Continue insulin detemir 25 units twice daily On Glucophage 500 mg twice daily at home Renal: Creatinine currently within normal limits Monitor urine output Accurate I's and O Heme: Chronic apixaban use History of DVT/PE Leukocytosis -likely steroid-induced Continue iron sulfate 325 mg p.o. twice daily Continue apixaban 5 mg twice daily Monitor CBC daily. Follow trend ID: Currently on azithromycin All cultures no growth to date FEN: On scheduled potassium chloride 20 mEq p.o. twice daily while on furosemide Replace electrolytes as clinically indicated MSK: Elevated BMI 36.6 PT evaluate and treat Weight loss encouraged Check Dopplers bilateral lower extremities Access -Utilize peripheral IV. Central line if indicated Prophylaxis -GI -pantoprazole -DVT -SCD/heparin subcu Level 2 follow-up Chuy Garcia MD January 12, 2018 09:50
[2018-01-12] MEDS ORDERED: GLUCAGON 1 MG/ML VIAL OTHER PRN (10:00)
[2018-01-12] MEDS ORDERED: DEXTROSE 50% IN WATER 50 ML VIAL(D50) IV PUSH PRN (10:00)
--- NOTE | 2018-01-12 11:49 | RADRPT ---
EXAM DATE/TIME: 01/12/2018 10:19 [facility] COMPARISON: US LEG BILATERAL VENOUS DOPPLER, November 22, 2017, 20:57. INDICATIONS : Bilateral leg swelling. MEDICAL HISTORY : Hypercholesterolemia. Chronic obstructive pulmonary disease. Gastroesophageal r eflux disease. Anticoagulant therapy, eliquis. Tachycardia. Deep vein thrombosis. Asthma. Pulmonary e mbolism. BPH. Renal disease. Arthritis. Diabetes. Anxiety. SURGICAL HISTORY : Tonsillectomy.Appendectomy. Bilateral cataract surgery. Right hip replacement. ENCOUNTER: Initial ACUITY: >1 year PAIN SCORE: 2/10 LOCATION: Bilateral legs. TECHNIQUE: Venous ultrasound of the left and right leg was performed from the inguinal ligament t o the proximal calf. Real-time, color Doppler and spectral tracing, compression and augmentation rubina hniques were used. FINDINGS: RIGHT LEG: There is normal compressibility of the deep venous system from the inguinal region to the proximal calf. No echogenic clot is seen in the lumen of the common femoral, femoral, popliteal, and posterior tibial veins. There is a normal response of the venous system to proximal and distal augmentation and respiration. LEFT LEG: There is normal compressibility of the deep venous system from the inguinal region to t he proximal calf. No echogenic clot is seen in the lumen of the common femoral, femoral, popliteal, and posterior tibial veins. There is a normal response of the venous system to proximal and distal a ugmentation and respiration. CONCLUSION: Negative for deep venous thrombosis. Elías Hull MD FACR on January 12, 2018 at 11:46 Board Certified Radiologist. This report was verified electronically.
[2018-01-12] MEDS: BUDESONIDE-FORMOTEROL 160/4.5 MCG INHALER INH SCH ×2 (13:05→21:39)
--- NOTE | 2018-01-12 15:14 | HHI.PR ---
Subjective Remarks alert SITTING IN BED NO DISTRESS SOB with mild exertion Objective Vital Signs Date Time Temp Pulse Resp B/P (MAP) Pulse Ox O2 Delivery O2 Flow Rate FiO2 01/12/18 12:00 103 01/12/18 10:00 110 01/12/18 08:00 93 Nasal Cannula 3.00 01/12/18 08:00 109 01/12/18 08:00 97.7 109 24 171/96 (121) 93 01/12/18 07:47 93 Nasal Cannula 3.00 01/12/18 06:00 104 01/12/18 04:00 97.5 92 12 155/93 (113) 93 01/12/18 04:00 93 Nasal Cannula 3.00 01/12/18 04:00 92 01/12/18 02:00 91 01/12/18 00:00 97.9 95 16 161/98 (119) 92 01/12/18 00:00 92 Nasal Cannula 3.00 01/12/18 00:00 95 01/11/18 22:00 97 01/11/18 20:11 94 Nasal Cannula 3.00 01/11/18 20:00 97.7 89 18 155/89 (111) 92 01/11/18 20:00 92 Nasal Cannula 3.00 01/11/18 20:00 89 01/11/18 18:00 114 01/11/18 17:00 139 01/11/18 16:00 98.0 100 17 155/93 (113) 94 01/11/18 16:00 96 Nasal Cannula 4.00 01/11/18 16:00 100 I/O 01/11/18 01/11/18 01/11/18 01/12/18 01/12/18 01/12/18 07:00 15:00 23:00 07:00 15:00 23:00 Intake Total 250 ml 500 ml 540 ml Output Total 1000 ml 3000 ml 1050 ml Balance -1000 ml 250 ml -2500 ml -510 ml Intake Oral 500 ml 540 ml IV Total 250 ml Output Urine Total 1000 ml 3000 ml 1050 ml # Bowel Movements 1 1 0 Result Diagram: 01/12/1842401/12/18424 Objective Remarks GENERAL: SKIN: Warm and dry. HEAD: Atraumatic. Normocephalic. EYES: Pupils equal and round. No scleral icterus. No injection or drainage. ENT: No nasal bleeding or discharge. Mucous membranes pink and moist. NECK: Trachea midline. No JVD. CARDIOVASCULAR: Regular rate and rhythm. RESPIRATORY: No accessory muscle use. WHEEZING BILATERALY to auscultation. Breath sounds equal bilaterally. GASTROINTESTINAL: Abdomen soft, non-tender, nondistended. Hepatic and splenic margins not palpable. MUSCULOSKELETAL: Extremities without clubbing, cyanosis, or edema. No obvious deformities. NEUROLOGICAL: Awake and alert. No obvious cranial nerve deficits. Motor grossly within normal limits. Five out of 5 muscle strength in the arms and legs. Normal speech. PSYCHIATRIC: Appropriate mood and affect; insight and judgment normal. Assessment and Plan Assessment and Plan ass: no dvt by US asthma exacerbation SLOWLY IMPROVING plan O2/ BIPAP BRONCHODILATORS INCREASE ACTIVITY Mary Hernandez MD January 12, 2018 15:14
[2018-01-12] MEDS: ATORVASTATIN 40 MG TAB PO SCH (21:40)
[2018-01-12] MEDS: MONTELUKAST SODIUM 10 MG TAB PO SCH (21:50)
[2018-01-13] VITALS (14 sets, daily range): BP systolic 125–156; BP diastolic 78–94; PULSE 80–141; RESP 13–31; TEMP 97.3–98.1; O2SAT 91–96
[2018-01-13] MEDS: RESP: ALBUTEROL 2.5 MG/IPRATROPIUM 0.5 MG NEB (SCH) NEB ×5 (04:46→21:38)
[2018-01-13 06:12] LABS: AUTOMATED NEUTROPHIL # 14.3 TH/MM3 (1.8-7.7); BASOPHIL % 0.1 % (0.0-2.0); HEMATOCRIT 40.4 % (39.0-51.0); HEMOGLOBIN 13.6 GM/DL (13.0-17.0); LYMPH % 2.6 % (9.0-44.0); LYMPHOCYTE # 0.4 TH/MM3 (1.0-4.8); MEAN CELL VOLUME 86.3 FL (80.0-100.0); MEAN CORPUSCULAR HEMOGLOBIN 29.2 PG (27.0-34.0); MEAN CORPUSCULAR HGB CONC 33.8 % (32.0-36.0); MEAN PLATELET VOLUME 7.6 FL (7.0-11.0); MONO % 4.8 % (0.0-8.0); MONOCYTE # 0.7 TH/MM3 (0-0.9); NEUT % 92.5 % (16.0-70.0); PLATELET COUNT 176 TH/MM3 (150-450); RED BLOOD COUNT 4.68 MIL/MM3 (4.50-5.90); RED CELL DISTRIBUTION WIDTH 17.1 % (11.6-17.2); WHITE BLOOD COUNT 15.4 TH/MM3 (4.0-11.0)
[2018-01-13 06:33] LABS: ALBUMIN 2.6 GM/DL (3.4-5.0); AST (GOT) 23 U/L (15-37); BICARBONATE 27.5 MEQ/L (21.0-32.0); BLOOD UREA NITROGEN 25 MG/DL (7-18); CALCIUM 8.8 MG/DL (8.5-10.1); CHLORIDE 101 MEQ/L (98-107); CREATININE 0.91 MG/DL (0.60-1.30); GLOMERULAR FILTRATION RATE 87 ML/MIN (>89); GLUCOSE,RANDOM 300 MG/DL (74-106); MAGNESIUM 2.5 MG/DL (1.5-2.5); SODIUM (NA) 138 MEQ/L (136-145)
[2018-01-13 06:37] LABS: ALKALINE PHOSPHATASE 113 U/L (45-117); ALT (GPT) 92 U/L (12-78); PHOSPHORUS 3.9 MG/DL (2.5-4.9); TOTAL BILIRUBIN ADULT 0.6 MG/DL (0.2-1.0)
[2018-01-13 08:30] LABS: BANDS 8 % (0-6); CORRECTED NUCLEATED RBC 1 /100 WBC (0-0); LYMPHOCYTES 2 % (9-44); METAMYELOCYTES 1 % (0-1); MONOCYTES 1 % (0-8); MYELOCYTES 5 % (0-0); NEUTROPHIL # MANUAL DIFF 14.9 TH/MM3 (1.8-7.7); NUCLEATED RED BLOOD CELL 1 (0-0); POLYS (SEG NEUTROPHILS) 83 % (16-70)
[2018-01-13] MEDS: INSULIN DETEMIR 100 UNITS/ML VIAL SQ SCH ×2 (09:00→21:00)
--- NOTE | 2018-01-13 09:19 | HHI.PR ---
Subjective Remarks alert SITTING IN BED NO DISTRESS Objective Vital Signs Date Time Temp Pulse Resp B/P (MAP) Pulse Ox O2 Delivery O2 Flow Rate FiO2 01/13/18 08:30 95 Nasal Cannula 3.00 01/13/18 06:00 89 01/13/18 04:00 Nasal Cannula 3.00 40 01/13/18 04:00 97.3 116 31 156/78 (104) 96 01/13/18 04:00 116 01/13/18 02:00 99 01/13/18 00:00 97.7 101 16 153/94 (113) 93 01/13/18 00:00 101 01/13/18 00:00 Nasal Cannula 3.00 40 01/12/18 22:00 119 01/12/18 20:16 98 Nasal Cannula 3.00 01/12/18 20:00 Nasal Cannula 3.00 40 01/12/18 20:00 106 01/12/18 20:00 97.6 106 22 141/85 (103) 94 01/12/18 18:00 107 01/12/18 16:00 98 Nasal Cannula 3.00 01/12/18 16:00 98.1 108 16 155/95 (115) 93 01/12/18 16:00 108 01/12/18 14:00 130 01/12/18 12:00 95.8 103 22 159/101 (120) 94 01/12/18 12:00 94 Nasal Cannula 3.00 01/12/18 12:00 103 01/12/18 10:00 110 I/O 01/12/18 01/12/18 01/12/18 01/13/18 01/13/18 01/13/18 07:00 15:00 23:00 07:00 15:00 23:00 Intake Total 540 ml 400 ml Output Total 1050 ml 2600 ml 1200 ml Balance -510 ml -2600 ml -800 ml Intake Oral 540 ml 400 ml Output Urine Total 1050 ml 2600 ml 1200 ml Stool Total 0 ml # Voids 5 # Bowel Movements 0 0 0 Result Diagram: 01/13/18 0525 01/13/18524 Objective Remarks GENERAL: SKIN: Warm and dry. HEAD: Atraumatic. Normocephalic. EYES: Pupils equal and round. No scleral icterus. No injection or drainage. ENT: No nasal bleeding or discharge. Mucous membranes pink and moist. NECK: Trachea midline. No JVD. CARDIOVASCULAR: Regular rate and rhythm. RESPIRATORY: No accessory muscle use. WHEEZING BILATERALY to auscultation. Breath sounds equal bilaterally. GASTROINTESTINAL: Abdomen soft, non-tender, nondistended. Hepatic and splenic margins not palpable. MUSCULOSKELETAL: Extremities without clubbing, cyanosis, or edema. No obvious deformities. NEUROLOGICAL: Awake and alert. No obvious cranial nerve deficits. Motor grossly within normal limits. Five out of 5 muscle strength in the arms and legs. Normal speech. PSYCHIATRIC: Appropriate mood and affect; insight and judgment normal. Assessment and Plan Assessment and Plan ass: asthma exacerbation SLOWLY IMPROVING plan O2/ BIPAP BRONCHODILATORS INCREASE ACTIVITY HOME SOON Mary Hernandez MD January 13, 2018 09:19
[2018-01-13] MEDS: INSULIN ASPART SUPPLEMENTAL SCALE SQ SCH ×4 (09:45→21:00)
[2018-01-13] MEDS: PARoxetine HCL 20 MG TAB PO SCH (09:46)
[2018-01-13] MEDS: FUROSEMIDE 40 MG/4 ML VIAL IV PUSH SCH (09:46)
[2018-01-13] MEDS: methylPREDNISolone SOD SUCC 40 MG/1 ML VIAL IV PUSH SCH ×2 (09:46→21:57)
[2018-01-13] MEDS: BUDESONIDE-FORMOTEROL 160/4.5 MCG INHALER INH SCH ×2 (09:46→21:55)
[2018-01-13] MEDS: NYSTATIN SUSP 500,000 U/5 ML CUP SWISH-SWAL SCH ×4 (09:46→21:56)
[2018-01-13] MEDS: SODIUM CHLORIDE 0.9% FLUSH 10 ML FLUSH IV FLUSH SCH ×2 (09:46→21:55)
[2018-01-13] MEDS: POTASSIUM CHLORIDE 20 MEQ CONTROLLED RELEASE TAB PO SCH ×2 (09:47→21:56)
[2018-01-13] MEDS: PANTOPRAZOLE SOD 40 MG DELAYED RELEASE TAB PO SCH (09:47)
[2018-01-13] MEDS: FERROUS SULFATE 325 MG (65 MG ELEMENTAL IRON) TAB PO SCH ×2 (09:47→21:56)
[2018-01-13] MEDS: TAMSULOSIN HCL 0.4 MG CAP PO SCH (09:47)
[2018-01-13] MEDS: DILTIAZEM-CD 180 MG CAP ER PO SCH (09:47)
[2018-01-13] MEDS: LISINOPRIL 5 MG TAB PO SCH ×2 (09:47→21:56)
[2018-01-13] MEDS: DOCUSATE SODIUM 50 MG/SENNA 8.6 MG TAB PO SCH ×2 (09:47→21:55)
[2018-01-13] MEDS: APIXABAN 5 MG TABLET PO SCH ×2 (09:47→21:56)
[2018-01-13] MEDS: LORazepam 0.5 MG TAB PO SCH ×2 (09:47→21:56)
[2018-01-13] MEDS: guaiFENesin/DEXTROMETHORPHAN 200 MG/20 MG/10 ML CUP PO SCH ×4 (09:48→21:56)
--- NOTE | 2018-01-13 11:55 | HHI.PR ---
Subjective History of Present Illness Patient still SOB/ Wheezing better off Bipap now , high blood sugar on regular medicine +. on Insulin drip blood sugar still up and down.. check Lab in AM Discussed with patient at bed side. . Leukocytosis monitoring. Review of Systems Constitutional Constitutional: Fatigue, Weakness Pulmonary Respiratory: Coughing, Shortness of Breath, Wheezing Cardiology CV Remarks edema. Allergic/Immunologic Allergic/Immunologic: Asthma Vitals/Results Vital Signs Vital Signs Date Time Temp Pulse Resp B/P (MAP) Pulse Ox O2 Delivery O2 Flow Rate FiO2 01/13/18 10:00 103 01/13/18 08:30 95 Nasal Cannula 3.00 01/13/18 08:00 80 01/13/18 08:00 93 Nasal Cannula 3.00 01/13/18 06:00 89 01/13/18 04:00 Nasal Cannula 3.00 40 01/13/18 04:00 97.3 116 31 156/78 (104) 96 01/13/18 04:00 116 01/13/18 02:00 99 01/13/18 00:00 97.7 101 16 153/94 (113) 93 01/13/18 00:00 101 01/13/18 00:00 Nasal Cannula 3.00 40 01/12/18 22:00 119 01/12/18 20:16 98 Nasal Cannula 3.00 01/12/18 20:00 Nasal Cannula 3.00 40 01/12/18 20:00 106 01/12/18 20:00 97.6 106 22 141/85 (103) 94 01/12/18 18:00 107 01/12/18 16:00 98 Nasal Cannula 3.00 01/12/18 16:00 98.1 108 16 155/95 (115) 93 01/12/18 16:00 108 01/12/18 14:00 130 01/12/18 12:00 95.8 103 22 159/101 (120) 94 01/12/18 12:00 94 Nasal Cannula 3.00 01/12/18 12:00 103 CBC/BMP: 01/13/18 0525 01/13/18 0525 Lab Results Laboratory Tests Test 01/13/18 05:25 White Blood Count 15.4 TH/MM3 Red Blood Count 4.68 MIL/MM3 Hemoglobin 13.6 GM/DL Hematocrit 40.4 % Mean Corpuscular Volume 86.3 FL Mean Corpuscular Hemoglobin 29.2 PG Mean Corpuscular Hemoglobin Concent 33.8 % Red Cell Distribution Width 17.1 % Platelet Count 176 TH/MM3 Mean Platelet Volume 7.6 FL Neutrophils (%) (Auto) 92.5 % Lymphocytes (%) (Auto) 2.6 % Monocytes (%) (Auto) 4.8 % Eosinophils (%) (Auto) 0.0 % Basophils (%) (Auto) 0.1 % Neutrophils # (Auto) 14.3 TH/MM3 Lymphocytes # (Auto) 0.4 TH/MM3 Monocytes # (Auto) 0.7 TH/MM3 Eosinophils # (Auto) 0.0 TH/MM3 Basophils # (Auto) 0.0 TH/MM3 CBC Comment AUTO DIFF Differential Total Cells Counted 100 Neutrophils % (Manual) 83 % Band Neutrophils % 8 % Lymphocytes % 2 % Monocytes % 1 % Neutrophils # (Manual) 14.9 TH/MM3 Metamyelocytes 1 % Myelocytes 5 % Nucleated Red Blood Cells 1 /100 WBC Differential Comment FINAL DIFF MANUAL Platelet Estimate NORMAL Platelet Morphology Comment NORMAL Red Cell Morphology Comment NORMAL Blood Urea Nitrogen 25 MG/DL Creatinine 0.91 MG/DL Random Glucose 300 MG/DL Total Protein 5.0 GM/DL Albumin 2.6 GM/DL Calcium Level 8.8 MG/DL Phosphorus Level 3.9 MG/DL Magnesium Level 2.5 MG/DL Alkaline Phosphatase 113 U/L Aspartate Amino Transf (AST/SGOT) 23 U/L Alanine Aminotransferase (ALT/SGPT) 92 U/L Total Bilirubin 0.6 MG/DL Sodium Level 138 MEQ/L Potassium Level 4.7 MEQ/L Chloride Level 101 MEQ/L Carbon Dioxide Level 27.5 MEQ/L Anion Gap 10 MEQ/L Estimat Glomerular Filtration Rate 87 ML/MIN Physical Exam General General Appearance: Well Developed, Well Nourished, Anxious Appearance Remarks Acute respiratory distress mild. Eyes Eye Exam: Pupils Equal, Pupils Reactive, Sclera White, Extraocular Movement Intact Throat Throat Remarks Oral Thrush. Neck Neck Exam: Neck Supple, Trachea Midline Pulmonary Resp Exam: Diminished Breath Sounds, Labored Resp Remarks Bilateral wheezing and crackles. Cardiology CV Exam: Normal Sinus Rhythm, Tachycardia Gastrointestinal/Abdomen GI Exam: Soft, Non-Tender, Bowel Sounds Present, Distended Musculoskeletal MS Exam: Joints Intact Integumentary Skin Exam: Warm, Dry, Intact Extremeties Extremities Exam: Moderate Edema, Pitting Edema Neurologic Neuro Exam: Alert, Awake, Oriented, Moving All Extremities, No Focal Deficits Psychiatric Psych Exam: Appropriate Responses VTE Prophylaxis VTE Remarks Eliquis PUD Prophylasis PUD Prophylaxis: Protonix Assessment/Plan Assessment/Plan ASSESSMENT AND PLAN: This is a 52-year-old male who came to the ER, diagnosed with: 1. Acute respiratory failure secondary to chronic obstructive pulmonary disease/asthma exacerbation. on BIPAP Now critical care input noted. The patient is on DuoNeb nebulization. The patient also on Solu-Medrol 40 mg every 12 hour. The patient is also on Symbicort inhaler, Singulair 10 mg p.o. daily. Pulmonary input noted. Further recommendation per pulmonary. 2. History of COPD/asthma. Continue home medication. 3. History of benign prostatic hypertrophy. Continue with Flomax 0.4 mg p.o. daily. 4. History of hyperlipidemia. Continue with Lipitor 40 mg p.o. daily. 5. Diabetes mellitus. ADA 1800 calorie diet. NovoLog low dose sliding scale. Check blood sugar with meals and at bedtime. Continue Metformin 500 mg twice a day. We will monitor blood sugar closely. on insulin drip.. blood sugar in 200 now. 6. History of deep venous thrombosis and pulmonary embolism. The patient is on Eliquis 5 mg twice a day. 7. History of hypertension. Continue with diltiazem 360 mg p.o. daily. 8. Iron deficiency anemia. The patient is on ferrous sulfate 325 mg twice a day. 9. Leg edema and generalized edema. The patient is on Lasix 40 mg daily. 10. Anxiety. Continue lorazepam 0.5 mg twice a day. 11. Gastroesophageal reflux disease. Protonix 40 mg p.o. daily. 12. Depression. Continue with Paxil 20 mg p.o. daily. 13. History of oral thrush. The patient is on nystatin 5 mL 4 times a day. 14. Deep venous thrombosis prophylaxis, Eliquis 5 mg twice a day. 15. Gastrointestinal prophylaxis, Protonix 40 mg p.o. daily. 16. Renal Insufficency on Diuretic. better. 17. Leukocytosis monitoring. 18. Hypokalemia resolved. Check CBC, CMP in the morning. We are going to manage the patient on a daily basis and make recommendations on daily basis. Discussed Condition with: Patient Myron Woodward MD January 13, 2018 11:55
[2018-01-13] MEDS: ATORVASTATIN 40 MG TAB PO SCH (21:56)
[2018-01-13] MEDS: MONTELUKAST SODIUM 10 MG TAB PO SCH (21:56)
[2018-01-14] VITALS (15 sets, daily range): BP systolic 113–147; BP diastolic 72–97; PULSE 80–112; RESP 11–20; TEMP 97.3–98.6; O2SAT 89–98
[2018-01-14] MEDS: RESP: ALBUTEROL 2.5 MG/IPRATROPIUM 0.5 MG NEB (SCH) NEB ×6 (00:10→20:31)
[2018-01-14 05:42] LABS: AUTOMATED NEUTROPHIL # 13.9 TH/MM3 (1.8-7.7); BASOPHIL % 0.2 % (0.0-2.0); HEMATOCRIT 41.9 % (39.0-51.0); HEMOGLOBIN 14.3 GM/DL (13.0-17.0); LYMPH % 2.6 % (9.0-44.0); LYMPHOCYTE # 0.4 TH/MM3 (1.0-4.8); MEAN CORPUSCULAR HEMOGLOBIN 29.4 PG (27.0-34.0); MEAN CORPUSCULAR HGB CONC 34.2 % (32.0-36.0); MEAN PLATELET VOLUME 7.6 FL (7.0-11.0); MONO % 4.4 % (0.0-8.0); MONOCYTE # 0.7 TH/MM3 (0-0.9); NEUT % 92.8 % (16.0-70.0); PLATELET COUNT 168 TH/MM3 (150-450); RED BLOOD COUNT 4.88 MIL/MM3 (4.50-5.90); RED CELL DISTRIBUTION WIDTH 17.7 % (11.6-17.2)
[2018-01-14 06:07] LABS: AST (GOT) 18 U/L (15-37); BICARBONATE 26.9 MEQ/L (21.0-32.0); BLOOD UREA NITROGEN 27 MG/DL (7-18); CALCIUM 9.3 MG/DL (8.5-10.1); CHLORIDE 100 MEQ/L (98-107); CREATININE 0.92 MG/DL (0.60-1.30); GLOMERULAR FILTRATION RATE 86 ML/MIN (>89); GLUCOSE,RANDOM 301 MG/DL (74-106); SODIUM (NA) 136 MEQ/L (136-145)
[2018-01-14 06:08] LABS: ALT (GPT) 95 U/L (12-78)
[2018-01-14 06:11] LABS: ALKALINE PHOSPHATASE 129 U/L (45-117); TOTAL BILIRUBIN ADULT 0.6 MG/DL (0.2-1.0); TOTAL PROTEIN 5.4 GM/DL (6.4-8.2)
[2018-01-14] MEDS: POTASSIUM CHLORIDE 20 MEQ CONTROLLED RELEASE TAB PO SCH ×2 (07:49→20:38)
[2018-01-14] MEDS: DILTIAZEM-CD 180 MG CAP ER PO SCH (07:49)
[2018-01-14] MEDS: PARoxetine HCL 20 MG TAB PO SCH (07:50)
[2018-01-14] MEDS: LORazepam 0.5 MG TAB PO SCH ×2 (07:50→20:37)
[2018-01-14] MEDS: LISINOPRIL 5 MG TAB PO SCH ×2 (07:50→20:37)
[2018-01-14] MEDS: FERROUS SULFATE 325 MG (65 MG ELEMENTAL IRON) TAB PO SCH ×2 (07:50→20:37)
[2018-01-14] MEDS: FUROSEMIDE 40 MG/4 ML VIAL IV PUSH SCH (07:50)
[2018-01-14] MEDS: TAMSULOSIN HCL 0.4 MG CAP PO SCH (07:50)
[2018-01-14] MEDS: APIXABAN 5 MG TABLET PO SCH ×2 (07:51→20:37)
[2018-01-14] MEDS: guaiFENesin/DEXTROMETHORPHAN 200 MG/20 MG/10 ML CUP PO SCH ×4 (07:51→20:36)
[2018-01-14] MEDS: PANTOPRAZOLE SOD 40 MG DELAYED RELEASE TAB PO SCH (07:51)
[2018-01-14] MEDS: DOCUSATE SODIUM 50 MG/SENNA 8.6 MG TAB PO SCH ×2 (07:51→20:37)
[2018-01-14] MEDS: INSULIN DETEMIR 100 UNITS/ML VIAL SQ SCH ×2 (07:51→20:38)
[2018-01-14] MEDS: methylPREDNISolone SOD SUCC 40 MG/1 ML VIAL IV PUSH SCH ×2 (07:51→20:36)
[2018-01-14] MEDS: BUDESONIDE-FORMOTEROL 160/4.5 MCG INHALER INH SCH ×2 (07:52→20:38)
[2018-01-14] MEDS: SODIUM CHLORIDE 0.9% FLUSH 10 ML FLUSH IV FLUSH SCH ×2 (07:52→20:38)
[2018-01-14] MEDS: NYSTATIN SUSP 500,000 U/5 ML CUP SWISH-SWAL SCH ×4 (07:53→20:36)
[2018-01-14 08:13] LABS: BANDS 2 % (0-6); LYMPHOCYTES 3 % (9-44); METAMYELOCYTES 5 % (0-1); MONOCYTES 4 % (0-8); MYELOCYTES 4 % (0-0); POLYS (SEG NEUTROPHILS) 82 % (16-70)
[2018-01-14] MEDS: INSULIN ASPART SUPPLEMENTAL SCALE SQ SCH ×4 (08:13→20:39)
[2018-01-14 08:14] LABS: OVALOCYTES 1+ (NORMAL)
--- NOTE | 2018-01-14 12:35 | HHI.PR ---
Subjective History of Present Illness Patient still SOB/ Wheezing better off Bipap now , high blood sugar on regular medicine +. off Insulin drip blood sugar still up and down.. check Lab in AM Discussed with patient at bed side. . Leukocytosis monitoring going out of ICU today have pressure ulcer at buttock area. Review of Systems Constitutional Constitutional: Fatigue, Weakness Pulmonary Respiratory: Coughing, Shortness of Breath, Wheezing Cardiology CV Remarks edema. Integumentary Skin: Wounds Skin Remarks pressure wound at both buttock area. Allergic/Immunologic Allergic/Immunologic: Asthma Vitals/Results Vital Signs Vital Signs Date Time Temp Pulse Resp B/P (MAP) Pulse Ox O2 Delivery O2 Flow Rate FiO2 01/14/18 10:00 108 01/14/18 09:20 85 3.00 01/14/18 09:00 106 20 136/97 (110) 89 01/14/18 09:00 106 01/14/18 08:50 93 2.00 01/14/18 08:00 97.6 88 11 147/90 (109) 93 01/14/18 08:00 88 01/14/18 07:52 96 Nasal Cannula 3.00 01/14/18 07:00 80 01/14/18 07:00 80 11 144/83 (103) 94 01/14/18 07:00 95 Nasal Cannula 3.00 01/14/18 06:00 83 01/14/18 04:00 98.0 81 12 147/88 (107) 94 01/14/18 04:00 81 01/14/18 04:00 94 Nasal Cannula 3.00 01/14/18 02:00 94 01/14/18 00:00 98.3 95 19 143/89 (107) 92 01/14/18 00:00 97.7 95 19 146/88 (107) 92 01/14/18 00:00 95 01/14/18 00:00 92 Nasal Cannula 3.00 01/13/18 22:00 101 01/13/18 21:38 94 Nasal Cannula 3.00 01/13/18 20:00 99 01/13/18 20:00 93 Nasal Cannula 3.00 01/13/18 18:00 100 01/13/18 16:00 98.0 111 18 125/79 (94) 92 01/13/18 16:00 111 01/13/18 16:00 94 Nasal Cannula 3.00 01/13/18 14:00 141 CBC/BMP: 01/14/18 0513 01/14/18 0513 Lab Results Laboratory Tests Test 01/14/18 05:13 White Blood Count 15.0 TH/MM3 Red Blood Count 4.88 MIL/MM3 Hemoglobin 14.3 GM/DL Hematocrit 41.9 % Mean Corpuscular Volume 86.0 FL Mean Corpuscular Hemoglobin 29.4 PG Mean Corpuscular Hemoglobin Concent 34.2 % Red Cell Distribution Width 17.7 % Platelet Count 168 TH/MM3 Mean Platelet Volume 7.6 FL Neutrophils (%) (Auto) 92.8 % Lymphocytes (%) (Auto) 2.6 % Monocytes (%) (Auto) 4.4 % Eosinophils (%) (Auto) 0.0 % Basophils (%) (Auto) 0.2 % Neutrophils # (Auto) 13.9 TH/MM3 Lymphocytes # (Auto) 0.4 TH/MM3 Monocytes # (Auto) 0.7 TH/MM3 Eosinophils # (Auto) 0.0 TH/MM3 Basophils # (Auto) 0.0 TH/MM3 CBC Comment AUTO DIFF Differential Total Cells Counted 100 Neutrophils % (Manual) 82 % Band Neutrophils % 2 % Lymphocytes % 3 % Monocytes % 4 % Neutrophils # (Manual) 14.0 TH/MM3 Metamyelocytes 5 % Myelocytes 4 % Differential Comment FINAL DIFF MANUAL Platelet Estimate NORMAL Platelet Morphology Comment NORMAL Ovalocytes 1+ Blood Urea Nitrogen 27 MG/DL Creatinine 0.92 MG/DL Random Glucose 301 MG/DL Total Protein 5.4 GM/DL Albumin 3.0 GM/DL Calcium Level 9.3 MG/DL Alkaline Phosphatase 129 U/L Aspartate Amino Transf (AST/SGOT) 18 U/L Alanine Aminotransferase (ALT/SGPT) 95 U/L Total Bilirubin 0.6 MG/DL Sodium Level 136 MEQ/L Potassium Level 4.5 MEQ/L Chloride Level 100 MEQ/L Carbon Dioxide Level 26.9 MEQ/L Anion Gap 9 MEQ/L Estimat Glomerular Filtration Rate 86 ML/MIN Physical Exam General General Appearance: Well Developed, Well Nourished, Anxious Appearance Remarks Acute respiratory distress mild. Eyes Eye Exam: Pupils Equal, Pupils Reactive, Sclera White, Extraocular Movement Intact Throat Throat Remarks Oral Thrush. Neck Neck Exam: Neck Supple, Trachea Midline Pulmonary Resp Exam: Diminished Breath Sounds, Labored Resp Remarks Bilateral wheezing and crackles. Cardiology CV Exam: Normal Sinus Rhythm, Tachycardia Gastrointestinal/Abdomen GI Exam: Soft, Non-Tender, Bowel Sounds Present, Distended Musculoskeletal MS Exam: Joints Intact Integumentary Skin Remarks Pressure wound at buttock area. Extremeties Extremities Exam: Moderate Edema, Pitting Edema Neurologic Neuro Exam: Alert, Awake, Oriented, Moving All Extremities, No Focal Deficits Psychiatric Psych Exam: Appropriate Responses VTE Prophylaxis VTE Remarks Eliquis PUD Prophylasis PUD Prophylaxis: Protonix Assessment/Plan Assessment/Plan ASSESSMENT AND PLAN: This is a 52-year-old male who came to the ER, diagnosed with: 1. Acute respiratory failure secondary to chronic obstructive pulmonary disease/asthma exacerbation. on BIPAP Now critical care input noted. The patient is on DuoNeb nebulization. The patient also on Solu-Medrol 40 mg every 12 hour. The patient is also on Symbicort inhaler, Singulair 10 mg p.o. daily. Pulmonary input noted. Further recommendation per pulmonary. 2. History of COPD/asthma. Continue home medication. 3. History of benign prostatic hypertrophy. Continue with Flomax 0.4 mg p.o. daily. 4. History of hyperlipidemia. Continue with Lipitor 40 mg p.o. daily. 5. Diabetes mellitus. ADA 1800 calorie diet. NovoLog low dose sliding scale. Check blood sugar with meals and at bedtime. Continue Metformin 500 mg twice a day. We will monitor blood sugar closely. on levemir 25 units BID. .. blood sugar monitoring. 6. History of deep venous thrombosis and pulmonary embolism. The patient is on Eliquis 5 mg twice a day. 7. History of hypertension. Continue with diltiazem 360 mg p.o. daily. 8. Iron deficiency anemia. The patient is on ferrous sulfate 325 mg twice a day. 9. Leg edema and generalized edema. The patient is on Lasix 40 mg daily. 10. Anxiety. Continue lorazepam 0.5 mg twice a day. 11. Gastroesophageal reflux disease. Protonix 40 mg p.o. daily. 12. Depression. Continue with Paxil 20 mg p.o. daily. 13. History of oral thrush. The patient is on nystatin 5 mL 4 times a day. 14. Deep venous thrombosis prophylaxis, Eliquis 5 mg twice a day. 15. Gastrointestinal prophylaxis, Protonix 40 mg p.o. daily. 16. Renal Insufficency on Diuretic. better. 17. Leukocytosis monitoring. 18. Hypokalemia resolved. 19 Pressure wound at both buttock area. Check CBC, CMP in the morning. We are going to manage the patient on a daily basis and make recommendations on daily basis. Discussed Condition with: Patient Myron Woodward MD January 14, 2018 12:35
--- NOTE | 2018-01-14 16:20 | HHI.PR ---
Subjective Remarks ALERT NO DISTRESS Objective Vital Signs Date Time Temp Pulse Resp B/P (MAP) Pulse Ox O2 Delivery O2 Flow Rate FiO2 01/14/18 12:00 98.6 112 20 113/72 (86) 96 01/14/18 12:00 112 01/14/18 12:00 95 Nasal Cannula 3.00 01/14/18 10:00 108 01/14/18 09:20 85 3.00 01/14/18 09:00 106 20 136/97 (110) 89 01/14/18 09:00 106 01/14/18 08:50 93 2.00 01/14/18 08:00 97.6 88 11 147/90 (109) 93 01/14/18 08:00 88 01/14/18 07:52 96 Nasal Cannula 3.00 01/14/18 07:00 80 01/14/18 07:00 80 11 144/83 (103) 94 01/14/18 07:00 95 Nasal Cannula 3.00 01/14/18 06:00 83 01/14/18 04:00 98.0 81 12 147/88 (107) 94 01/14/18 04:00 81 01/14/18 04:00 94 Nasal Cannula 3.00 01/14/18 02:00 94 01/14/18 00:00 98.3 95 19 143/89 (107) 92 01/14/18 00:00 97.7 95 19 146/88 (107) 92 01/14/18 00:00 95 01/14/18 00:00 92 Nasal Cannula 3.00 01/13/18 22:00 101 01/13/18 21:38 94 Nasal Cannula 3.00 01/13/18 20:00 99 01/13/18 20:00 93 Nasal Cannula 3.00 01/13/18 18:00 100 I/O 01/13/18 01/13/18 01/13/18 01/14/18 01/14/18 01/14/18 07:00 15:00 23:00 07:00 15:00 23:00 Intake Total 400 ml 720 ml 780 ml 840 ml Output Total 1200 ml 2800 ml 1560 ml 2375 ml Balance -800 ml -2080 ml -780 ml -1535 ml Intake Oral 400 ml 720 ml 780 ml 840 ml Output Urine Total 1200 ml 2800 ml 1560 ml 2375 ml Stool Total 0 ml # Voids 5 # Bowel Movements 0 0 0 Result Diagram: 01/14/1851201/14/18512 Objective Remarks GENERAL: SKIN: Warm and dry. HEAD: Atraumatic. Normocephalic. EYES: Pupils equal and round. No scleral icterus. No injection or drainage. ENT: No nasal bleeding or discharge. Mucous membranes pink and moist. NECK: Trachea midline. No JVD. CARDIOVASCULAR: Regular rate and rhythm. RESPIRATORY: No accessory muscle use. WHEEZING BILATERALY to auscultation. Breath sounds equal bilaterally. GASTROINTESTINAL: Abdomen soft, non-tender, nondistended. Hepatic and splenic margins not palpable. MUSCULOSKELETAL: Extremities without clubbing, cyanosis, or edema. No obvious deformities. NEUROLOGICAL: Awake and alert. No obvious cranial nerve deficits. Motor grossly within normal limits. Five out of 5 muscle strength in the arms and legs. Normal speech. PSYCHIATRIC: Appropriate mood and affect; insight and judgment normal. Assessment and Plan Assessment and Plan ass: asthma exacerbation SLOWLY IMPROVING plan O2/ BIPAP BRONCHODILATORS INCREASE ACTIVITY TAPER STEROIDS Mary Hernandez MD January 14, 2018 16:20
[2018-01-14] MEDS: MONTELUKAST SODIUM 10 MG TAB PO SCH (20:36)
[2018-01-14] MEDS: ATORVASTATIN 40 MG TAB PO SCH (20:37)
[2018-01-15] VITALS (12 sets, daily range): BP systolic 118–143; BP diastolic 74–87; PULSE 86–110; RESP 18; TEMP 97.2–98.1; O2SAT 94–98
[2018-01-15] MEDS: RESP: ALBUTEROL 2.5 MG/IPRATROPIUM 0.5 MG NEB (SCH) NEB ×4 (00:23→11:37)
[2018-01-15 05:31] LABS: AUTOMATED NEUTROPHIL # 13.5 TH/MM3 (1.8-7.7); BASOPHIL % 0.1 % (0.0-2.0); HEMATOCRIT 41.1 % (39.0-51.0); HEMOGLOBIN 13.9 GM/DL (13.0-17.0); LYMPH % 3.3 % (9.0-44.0); LYMPHOCYTE # 0.5 TH/MM3 (1.0-4.8); MEAN CORPUSCULAR HEMOGLOBIN 29.5 PG (27.0-34.0); MEAN CORPUSCULAR HGB CONC 33.9 % (32.0-36.0); MEAN PLATELET VOLUME 7.8 FL (7.0-11.0); MONO % 3.7 % (0.0-8.0); MONOCYTE # 0.5 TH/MM3 (0-0.9); NEUT % 92.9 % (16.0-70.0); PLATELET COUNT 159 TH/MM3 (150-450); RED BLOOD COUNT 4.73 MIL/MM3 (4.50-5.90); RED CELL DISTRIBUTION WIDTH 17.1 % (11.6-17.2); WHITE BLOOD COUNT 14.5 TH/MM3 (4.0-11.0)
[2018-01-15 05:49] LABS: ALT (GPT) 80 U/L (12-78)
[2018-01-15 05:51] LABS: ALKALINE PHOSPHATASE 120 U/L (45-117); TOTAL BILIRUBIN ADULT 0.6 MG/DL (0.2-1.0); TOTAL PROTEIN 5.2 GM/DL (6.4-8.2)
[2018-01-15 06:02] LABS: ALBUMIN 2.8 GM/DL (3.4-5.0); AST (GOT) 21 U/L (15-37); BICARBONATE 26.2 MEQ/L (21.0-32.0); BLOOD UREA NITROGEN 28 MG/DL (7-18); CALCIUM 8.9 MG/DL (8.5-10.1); CHLORIDE 99 MEQ/L (98-107); GLOMERULAR FILTRATION RATE 88 ML/MIN (>89); GLUCOSE,RANDOM 337 MG/DL (74-106); SODIUM (NA) 136 MEQ/L (136-145)
[2018-01-15 07:34] LABS: BANDS 5 % (0-6); LYMPHOCYTES 3 % (9-44); METAMYELOCYTES 4 % (0-1); MONOCYTES 2 % (0-8); MYELOCYTES 4 % (0-0); NEUTROPHIL # MANUAL DIFF 13.8 TH/MM3 (1.8-7.7); POLYS (SEG NEUTROPHILS) 82 % (16-70)
[2018-01-15 07:39] LABS: OVALOCYTES 1+ (NORMAL)
[2018-01-15] MEDS: INSULIN ASPART SUPPLEMENTAL SCALE SQ SCH ×4 (08:00→20:52)
[2018-01-15] MEDS: guaiFENesin/DEXTROMETHORPHAN 200 MG/20 MG/10 ML CUP PO SCH ×4 (08:11→20:51)
[2018-01-15] MEDS: LISINOPRIL 5 MG TAB PO SCH ×2 (08:11→20:52)
[2018-01-15] MEDS: TAMSULOSIN HCL 0.4 MG CAP PO SCH (08:11)
[2018-01-15] MEDS: FERROUS SULFATE 325 MG (65 MG ELEMENTAL IRON) TAB PO SCH ×2 (08:11→20:51)
[2018-01-15] MEDS: NYSTATIN SUSP 500,000 U/5 ML CUP SWISH-SWAL SCH ×4 (08:11→20:51)
[2018-01-15] MEDS: APIXABAN 5 MG TABLET PO SCH ×2 (08:11→20:51)
[2018-01-15] MEDS: DILTIAZEM-CD 180 MG CAP ER PO SCH (08:12)
[2018-01-15] MEDS: POTASSIUM CHLORIDE 20 MEQ CONTROLLED RELEASE TAB PO SCH ×2 (08:12→20:52)
[2018-01-15] MEDS: LORazepam 0.5 MG TAB PO SCH ×2 (08:12→20:51)
[2018-01-15] MEDS: DOCUSATE SODIUM 50 MG/SENNA 8.6 MG TAB PO SCH ×2 (08:12→20:52)
[2018-01-15] MEDS: SODIUM CHLORIDE 0.9% FLUSH 10 ML FLUSH IV FLUSH SCH ×2 (08:13→20:52)
[2018-01-15] MEDS: FUROSEMIDE 40 MG/4 ML VIAL IV PUSH SCH (08:13)
[2018-01-15] MEDS: INSULIN DETEMIR 100 UNITS/ML VIAL SQ SCH ×2 (09:00→20:53)
[2018-01-15] MEDS: PANTOPRAZOLE SOD 40 MG DELAYED RELEASE TAB PO SCH (09:00)
[2018-01-15] MEDS: methylPREDNISolone SOD SUCC 40 MG/1 ML VIAL IV PUSH SCH ×3 (09:00→20:51)
[2018-01-15] MEDS: BUDESONIDE-FORMOTEROL 160/4.5 MCG INHALER INH SCH ×2 (09:18→20:53)
[2018-01-15] MEDS: PARoxetine HCL 20 MG TAB PO SCH (09:18)
--- NOTE | 2018-01-15 09:41 | HHI.PR ---
Subjective History of Present Illness Patient still SOB/ Wheezing better off Bipap now , high blood sugar on regular medicine +. off Insulin drip Blood sugar high Increase Levemir to 35 units BID. .. check Lab in AM, Discussed with patient at bed side. . Leukocytosis monitoring, have pressure ulcer at both buttock area. Review of Systems Constitutional Constitutional: Fatigue, Weakness Pulmonary Respiratory: Coughing, Shortness of Breath, Wheezing Cardiology CV Remarks edema. Integumentary Skin: Wounds Skin Remarks Pressure wound at both buttock area. Allergic/Immunologic Allergic/Immunologic: Asthma Vitals/Results Vital Signs Vital Signs Date Time Temp Pulse Resp B/P (MAP) Pulse Ox O2 Delivery O2 Flow Rate FiO2 01/15/18 08:25 98 Nasal Cannula 3.00 01/15/18 08:00 97.5 89 18 143/82 (102) 97 01/15/18 04:06 93 01/15/18 04:00 97.2 103 18 136/87 (103) 96 01/15/18 03:55 97 Nasal Cannula 3.00 01/15/18 00:25 95 Nasal Cannula 3.00 01/15/18 00:00 89 01/14/18 22:47 97.8 97 20 134/79 (97) 96 01/14/18 20:31 98 Nasal Cannula 3.00 01/14/18 20:22 96 Nasal Cannula 3.00 Humidified 01/14/18 20:00 98 01/14/18 17:00 96 Nasal Cannula 3.00 40 01/14/18 17:00 104 01/14/18 16:00 97.3 104 17 129/83 (98) 95 01/14/18 12:00 98.6 112 20 113/72 (86) 96 01/14/18 12:00 112 01/14/18 12:00 95 Nasal Cannula 3.00 01/14/18 10:00 108 CBC/BMP: 01/15/18 0426 01/15/18 0426 Lab Results Laboratory Tests Test 01/15/18 04:26 White Blood Count 14.5 TH/MM3 Red Blood Count 4.73 MIL/MM3 Hemoglobin 13.9 GM/DL Hematocrit 41.1 % Mean Corpuscular Volume 87.0 FL Mean Corpuscular Hemoglobin 29.5 PG Mean Corpuscular Hemoglobin Concent 33.9 % Red Cell Distribution Width 17.1 % Platelet Count 159 TH/MM3 Mean Platelet Volume 7.8 FL Neutrophils (%) (Auto) 92.9 % Lymphocytes (%) (Auto) 3.3 % Monocytes (%) (Auto) 3.7 % Eosinophils (%) (Auto) 0.0 % Basophils (%) (Auto) 0.1 % Neutrophils # (Auto) 13.5 TH/MM3 Lymphocytes # (Auto) 0.5 TH/MM3 Monocytes # (Auto) 0.5 TH/MM3 Eosinophils # (Auto) 0.0 TH/MM3 Basophils # (Auto) 0.0 TH/MM3 CBC Comment AUTO DIFF Differential Total Cells Counted 100 Neutrophils % (Manual) 82 % Band Neutrophils % 5 % Lymphocytes % 3 % Monocytes % 2 % Neutrophils # (Manual) 13.8 TH/MM3 Metamyelocytes 4 % Myelocytes 4 % Differential Comment FINAL DIFF MANUAL Atypical Lymphocytes % Ovalocytes 1+ Blood Urea Nitrogen 28 MG/DL Creatinine 0.90 MG/DL Random Glucose 337 MG/DL Total Protein 5.2 GM/DL Albumin 2.8 GM/DL Calcium Level 8.9 MG/DL Alkaline Phosphatase 120 U/L Aspartate Amino Transf (AST/SGOT) 21 U/L Alanine Aminotransferase (ALT/SGPT) 80 U/L Total Bilirubin 0.6 MG/DL Sodium Level 136 MEQ/L Potassium Level 4.6 MEQ/L Chloride Level 99 MEQ/L Carbon Dioxide Level 26.2 MEQ/L Anion Gap 11 MEQ/L Estimat Glomerular Filtration Rate 88 ML/MIN Physical Exam General General Appearance: Well Developed, Well Nourished, Anxious Appearance Remarks Acute respiratory distress mild. Eyes Eye Exam: Pupils Equal, Pupils Reactive, Sclera White, Extraocular Movement Intact Throat Throat Remarks Oral Thrush. Neck Neck Exam: Neck Supple, Trachea Midline Pulmonary Resp Exam: Diminished Breath Sounds, Labored Resp Remarks Bilateral wheezing and crackles. Cardiology CV Exam: Normal Sinus Rhythm, Tachycardia Gastrointestinal/Abdomen GI Exam: Soft, Non-Tender, Bowel Sounds Present, Distended Musculoskeletal MS Exam: Joints Intact Integumentary Skin Exam: Dry Skin Remarks Pressure wound at both buttock area. Extremeties Extremities Exam: Moderate Edema, Pitting Edema Neurologic Neuro Exam: Alert, Awake, Oriented, Moving All Extremities, No Focal Deficits Psychiatric Psych Exam: Appropriate Responses VTE Prophylaxis VTE Remarks Eliquis PUD Prophylasis PUD Prophylaxis: Protonix Assessment/Plan Assessment/Plan ASSESSMENT AND PLAN: This is a 52-year-old male who came to the ER, diagnosed with: 1. Acute respiratory failure secondary to chronic obstructive pulmonary disease/asthma exacerbation. on BIPAP Now critical care input noted. The patient is on DuoNeb nebulization. The patient also on Solu-Medrol 40 mg every 12 hour. The patient is also on Symbicort inhaler, Singulair 10 mg P.O. daily. Pulmonary input noted. Further recommendation per pulmonary. 2. History of COPD/asthma. Continue home medication. 3. History of benign prostatic hypertrophy. Continue with Flomax 0.4 mg p.o. daily. 4. History of hyperlipidemia. Continue with Lipitor 40 mg p.o. daily. 5. Diabetes mellitus. ADA 1800 calorie diet. NovoLog low dose sliding scale. Check blood sugar with meals and at bedtime. Continue Metformin 500 mg twice a day. We will monitor blood sugar closely. on levemir 25 units BID blood sugar still high Increase to 35 units BID. will monitor sugar. 6. History of deep venous thrombosis and pulmonary embolism. The patient on Eliquis 5 mg twice a day. 7. History of hypertension. Continue with diltiazem 360 mg p.o. daily. 8. Iron deficiency anemia. The patient is on ferrous sulfate 325 mg twice a day. 9. Leg edema and generalized edema. The patient is on Lasix 40 mg daily. 10. Anxiety. Continue lorazepam 0.5 mg twice a day. 11. Gastroesophageal reflux disease. Protonix 40 mg p.o. daily. 12. Depression. Continue with Paxil 20 mg p.o. daily. 13. History of oral thrush. The patient is on nystatin 5 mL 4 times a day. 14. Deep venous thrombosis prophylaxis, Eliquis 5 mg twice a day. 15. Gastrointestinal prophylaxis, Protonix 40 mg p.o. daily. 16. Renal Insufficency on Diuretic. better. 17. Leukocytosis monitoring. 18. Hypokalemia resolved. 19. Pressure wound at both buttock area getting treatment. Check CBC, CMP in the morning. We are going to manage the patient on a daily basis and make recommendations on daily basis. Discussed Condition with: Patient Myron Woodward MD January 15, 2018 09:41
--- NOTE | 2018-01-15 15:18 | HHI.PR ---
Subjective Remarks ALERT NO DISTRESS Objective Vital Signs Date Time Temp Pulse Resp B/P (MAP) Pulse Ox O2 Delivery O2 Flow Rate FiO2 01/15/18 13:04 92 01/15/18 13:04 97 Room Air 01/15/18 12:00 98.1 98 18 118/74 (89) 97 01/15/18 08:25 98 Nasal Cannula 3.00 01/15/18 08:00 110 01/15/18 08:00 95 Room Air 01/15/18 08:00 97.5 89 18 143/82 (102) 97 01/15/18 04:06 93 01/15/18 04:00 97.2 103 18 136/87 (103) 96 01/15/18 03:55 97 Nasal Cannula 3.00 01/15/18 00:25 95 Nasal Cannula 3.00 01/15/18 00:00 89 01/14/18 22:47 97.8 97 20 134/79 (97) 96 01/14/18 20:31 98 Nasal Cannula 3.00 01/14/18 20:22 96 Nasal Cannula 3.00 Humidified 01/14/18 20:00 98 01/14/18 17:00 96 Nasal Cannula 3.00 40 01/14/18 17:00 104 01/14/18 16:00 97.3 104 17 129/83 (98) 95 I/O 01/14/18 01/14/18 01/14/18 01/15/18 01/15/18 01/15/18 07:00 15:00 23:00 07:00 15:00 23:00 Intake Total 780 ml 840 ml 0 ml Output Total 1560 ml 2375 ml 700 ml Balance -780 ml -1535 ml -700 ml Intake Oral 780 ml 840 ml 0 ml Output Urine Total 1560 ml 2375 ml 700 ml # Bowel Movements 0 0 Result Diagram: 01/15/18 0426 01/15/18 0426 Objective Remarks GENERAL: SKIN: Warm and dry. HEAD: Atraumatic. Normocephalic. EYES: Pupils equal and round. No scleral icterus. No injection or drainage. ENT: No nasal bleeding or discharge. Mucous membranes pink and moist. NECK: Trachea midline. No JVD. CARDIOVASCULAR: Regular rate and rhythm. RESPIRATORY: No accessory muscle use. WHEEZING BILATERALY to auscultation. Breath sounds equal bilaterally. GASTROINTESTINAL: Abdomen soft, non-tender, nondistended. Hepatic and splenic margins not palpable. MUSCULOSKELETAL: Extremities without clubbing, cyanosis, or edema. No obvious deformities. NEUROLOGICAL: Awake and alert. No obvious cranial nerve deficits. Motor grossly within normal limits. Five out of 5 muscle strength in the arms and legs. Normal speech. PSYCHIATRIC: Appropriate mood and affect; insight and judgment normal. Assessment and Plan Assessment and Plan ass: asthma exacerbation SLOWLY IMPROVING NOW ON MED FLOOR plan O2/ BIPAP BRONCHODILATORS INCREASE ACTIVITY TAPER STEROIDS Mary Hernandez MD January 15, 2018 15:18
[2018-01-15] MEDS: RESP: ALBUTEROL 2.5 MG/3 ML NEB (PRN) INH ×2 (15:44→20:03)
[2018-01-15] MEDS: ATORVASTATIN 40 MG TAB PO SCH (20:51)
[2018-01-15] MEDS: MONTELUKAST SODIUM 10 MG TAB PO SCH (20:52)
[2018-01-16] VITALS (13 sets, daily range): BP systolic 128–155; BP diastolic 69–87; PULSE 95–114; RESP 16–20; TEMP 97.5–98.5; O2SAT 96–98
[2018-01-16] MEDS: RESP: ALBUTEROL 2.5 MG/3 ML NEB (PRN) INH ×4 (03:50→20:48)
[2018-01-16 07:06] LABS: AUTOMATED NEUTROPHIL # 12.5 TH/MM3 (1.8-7.7); BASOPHIL % 0.1 % (0.0-2.0); HEMATOCRIT 40.3 % (39.0-51.0); HEMOGLOBIN 13.7 GM/DL (13.0-17.0); LYMPH % 2.5 % (9.0-44.0); LYMPHOCYTE # 0.3 TH/MM3 (1.0-4.8); MEAN CELL VOLUME 86.3 FL (80.0-100.0); MEAN CORPUSCULAR HEMOGLOBIN 29.3 PG (27.0-34.0); MEAN CORPUSCULAR HGB CONC 33.9 % (32.0-36.0); MEAN PLATELET VOLUME 7.7 FL (7.0-11.0); MONO % 4.1 % (0.0-8.0); MONOCYTE # 0.6 TH/MM3 (0-0.9); NEUT % 93.3 % (16.0-70.0); PLATELET COUNT 133 TH/MM3 (150-450); RED BLOOD COUNT 4.67 MIL/MM3 (4.50-5.90); RED CELL DISTRIBUTION WIDTH 17.4 % (11.6-17.2); WHITE BLOOD COUNT 13.4 TH/MM3 (4.0-11.0)
[2018-01-16 07:34] LABS: ALBUMIN 2.6 GM/DL (3.4-5.0); AST (GOT) 20 U/L (15-37); BICARBONATE 27.8 MEQ/L (21.0-32.0); BLOOD UREA NITROGEN 22 MG/DL (7-18); CALCIUM 8.3 MG/DL (8.5-10.1); CHLORIDE 100 MEQ/L (98-107); GLOMERULAR FILTRATION RATE 101 ML/MIN (>89); GLUCOSE,RANDOM 291 MG/DL (74-106); SODIUM (NA) 137 MEQ/L (136-145)
[2018-01-16 07:39] LABS: ALKALINE PHOSPHATASE 112 U/L (45-117); ALT (GPT) 75 U/L (12-78); TOTAL BILIRUBIN ADULT 0.6 MG/DL (0.2-1.0)
[2018-01-16 07:58] LABS: BANDS 12 % (0-6); LYMPHOCYTES 1 % (9-44); MONOCYTES 4 % (0-8); NEUTROPHIL # MANUAL DIFF 12.7 TH/MM3 (1.8-7.7); OVALOCYTES 1+ (NORMAL); POLYS (SEG NEUTROPHILS) 83 % (16-70)
[2018-01-16] MEDS: INSULIN ASPART SUPPLEMENTAL SCALE SQ SCH ×5 (08:00→22:31)
[2018-01-16] MEDS: INSULIN DETEMIR 100 UNITS/ML VIAL SQ SCH ×2 (08:19→22:31)
[2018-01-16] MEDS: FERROUS SULFATE 325 MG (65 MG ELEMENTAL IRON) TAB PO SCH ×2 (08:20→21:44)
[2018-01-16] MEDS: PARoxetine HCL 20 MG TAB PO SCH (08:20)
[2018-01-16] MEDS: SODIUM CHLORIDE 0.9% FLUSH 10 ML FLUSH IV FLUSH SCH ×2 (08:20→21:45)
[2018-01-16] MEDS: BUDESONIDE-FORMOTEROL 160/4.5 MCG INHALER INH SCH ×2 (08:20→21:00)
[2018-01-16] MEDS: LORazepam 0.5 MG TAB PO SCH ×2 (08:21→21:44)
[2018-01-16] MEDS: DILTIAZEM-CD 180 MG CAP ER PO SCH (08:21)
[2018-01-16] MEDS: methylPREDNISolone SOD SUCC 40 MG/1 ML VIAL IV PUSH SCH ×2 (08:21→21:43)
[2018-01-16] MEDS: FUROSEMIDE 40 MG/4 ML VIAL IV PUSH SCH (08:21)
[2018-01-16] MEDS: TAMSULOSIN HCL 0.4 MG CAP PO SCH (08:22)
[2018-01-16] MEDS: APIXABAN 5 MG TABLET PO SCH ×2 (08:22→21:44)
[2018-01-16] MEDS: LISINOPRIL 5 MG TAB PO SCH ×2 (08:22→21:44)
[2018-01-16] MEDS: PANTOPRAZOLE SOD 40 MG DELAYED RELEASE TAB PO SCH (08:22)
[2018-01-16] MEDS: guaiFENesin/DEXTROMETHORPHAN 200 MG/20 MG/10 ML CUP PO SCH ×4 (08:22→21:44)
[2018-01-16] MEDS: POTASSIUM CHLORIDE 20 MEQ CONTROLLED RELEASE TAB PO SCH ×2 (08:22→21:44)
[2018-01-16] MEDS: NYSTATIN SUSP 500,000 U/5 ML CUP SWISH-SWAL SCH ×4 (08:22→21:44)
[2018-01-16] MEDS: DOCUSATE SODIUM 50 MG/SENNA 8.6 MG TAB PO SCH ×2 (08:22→21:44)
--- NOTE | 2018-01-16 10:46 | HHI.PR ---
Subjective Remarks ALERT NO DISTRESS Objective Vital Signs Date Time Temp Pulse Resp B/P (MAP) Pulse Ox O2 Delivery O2 Flow Rate FiO2 01/16/18 09:45 105 01/16/18 09:45 98 Nasal Cannula 3.00 01/16/18 08:01 98 Nasal Cannula 3.00 01/16/18 08:00 98.3 99 16 155/87 (109) 96 01/16/18 04:00 99 01/16/18 04:00 98.2 105 19 137/87 (104) 96 01/16/18 00:00 95 01/16/18 00:00 98.0 104 18 128/69 (88) 96 01/15/18 20:00 Nasal Cannula 3.00 Humidified 01/15/18 20:00 97.9 98 18 142/87 (105) 95 01/15/18 20:00 97 01/15/18 16:00 97.5 86 18 133/87 (102) 94 01/15/18 15:44 97 Nasal Cannula 3.00 01/15/18 13:04 92 01/15/18 13:04 97 Room Air 01/15/18 12:00 98.1 98 18 118/74 (89) 97 I/O 01/15/18 01/15/18 01/15/18 01/16/18 01/16/18 01/16/18 07:00 15:00 23:00 07:00 15:00 23:00 Intake Total 0 ml 1940 ml 120 ml Output Total 700 ml 920 ml 550 ml Balance -700 ml 1020 ml -430 ml Intake Oral 0 ml 1940 ml 120 ml Output Urine Total 700 ml 920 ml 550 ml # Voids 5 # Bowel Movements 0 2 0 Result Diagram: 01/16/18 0649 01/16/18 0649 Objective Remarks GENERAL: SKIN: Warm and dry. HEAD: Atraumatic. Normocephalic. EYES: Pupils equal and round. No scleral icterus. No injection or drainage. ENT: No nasal bleeding or discharge. Mucous membranes pink and moist. NECK: Trachea midline. No JVD. CARDIOVASCULAR: Regular rate and rhythm. RESPIRATORY: No accessory muscle use. WHEEZING BILATERALY to auscultation. Breath sounds equal bilaterally. GASTROINTESTINAL: Abdomen soft, non-tender, nondistended. Hepatic and splenic margins not palpable. MUSCULOSKELETAL: Extremities without clubbing, cyanosis, or edema. No obvious deformities. NEUROLOGICAL: Awake and alert. No obvious cranial nerve deficits. Motor grossly within normal limits. Five out of 5 muscle strength in the arms and legs. Normal speech. PSYCHIATRIC: Appropriate mood and affect; insight and judgment normal. 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
--- NOTE | 2018-01-16 18:53 | HHI.PR ---
Subjective History of Present Illness Patient still SOB/ Wheezing better, high blood sugar on regular medicine + . off Insulin drip Blood sugar high Increase Levemir to 35 units BID. + 25 units of regular insulin x 1 .. check Lab in AM, Discussed with patient at bed side. . Leukocytosis monitoring, have pressure ulcer at both buttock area. Increase lasix to 40 mg IV BID Start Maalox Review of Systems Constitutional Constitutional: Fatigue, Weakness Pulmonary Respiratory: Coughing, Shortness of Breath, Wheezing Cardiology CV Remarks edema. Integumentary Skin: Wounds Skin Remarks Pressure wound at both buttock area. Allergic/Immunologic Allergic/Immunologic: Asthma Vitals/Results Intake & Output 01/16/18 01/16/18 01/17/18 15:00 23:00 07:00 Intake Total 1400 ml Output Total 1200 ml Balance 200 ml Intake Oral 1400 ml Output Urine Total 1200 ml # Bowel Movements 3 Vital Signs Vital Signs Date Time Temp Pulse Resp B/P (MAP) Pulse Ox O2 Delivery O2 Flow Rate FiO2 01/16/18 18:39 112 01/16/18 18:09 95 Nasal Cannula 2.00 01/16/18 16:00 98.5 100 18 139/73 (95) 96 01/16/18 13:52 97 Nasal Cannula 3.00 01/16/18 13:52 114 01/16/18 12:00 97.5 110 16 148/75 (99) 97 01/16/18 09:45 105 01/16/18 09:45 98 Nasal Cannula 3.00 01/16/18 08:01 98 Nasal Cannula 3.00 01/16/18 08:00 98.3 99 16 155/87 (109) 96 01/16/18 04:00 99 01/16/18 04:00 98.2 105 19 137/87 (104) 96 01/16/18 00:00 95 01/16/18 00:00 98.0 104 18 128/69 (88) 96 01/15/18 20:00 Nasal Cannula 3.00 Humidified 01/15/18 20:00 97.9 98 18 142/87 (105) 95 01/15/18 20:00 97 CBC/BMP: 01/16/18 0649 01/16/18 0649 Lab Results Laboratory Tests Test 01/16/18 06:49 White Blood Count 13.4 TH/MM3 Red Blood Count 4.67 MIL/MM3 Hemoglobin 13.7 GM/DL Hematocrit 40.3 % Mean Corpuscular Volume 86.3 FL Mean Corpuscular Hemoglobin 29.3 PG Mean Corpuscular Hemoglobin Concent 33.9 % Red Cell Distribution Width 17.4 % Platelet Count 133 TH/MM3 Mean Platelet Volume 7.7 FL Neutrophils (%) (Auto) 93.3 % Lymphocytes (%) (Auto) 2.5 % Monocytes (%) (Auto) 4.1 % Eosinophils (%) (Auto) 0.0 % Basophils (%) (Auto) 0.1 % Neutrophils # (Auto) 12.5 TH/MM3 Lymphocytes # (Auto) 0.3 TH/MM3 Monocytes # (Auto) 0.6 TH/MM3 Eosinophils # (Auto) 0.0 TH/MM3 Basophils # (Auto) 0.0 TH/MM3 CBC Comment AUTO DIFF Differential Total Cells Counted 100 Neutrophils % (Manual) 83 % Band Neutrophils % 12 % Lymphocytes % 1 % Monocytes % 4 % Neutrophils # (Manual) 12.7 TH/MM3 Differential Comment FINAL DIFF MANUAL Platelet Estimate LOW Platelet Morphology Comment NORMAL Ovalocytes 1+ Blood Urea Nitrogen 22 MG/DL Creatinine 0.80 MG/DL Random Glucose 291 MG/DL Total Protein 5.0 GM/DL Albumin 2.6 GM/DL Calcium Level 8.3 MG/DL Alkaline Phosphatase 112 U/L Aspartate Amino Transf (AST/SGOT) 20 U/L Alanine Aminotransferase (ALT/SGPT) 75 U/L Total Bilirubin 0.6 MG/DL Sodium Level 137 MEQ/L Potassium Level 4.3 MEQ/L Chloride Level 100 MEQ/L Carbon Dioxide Level 27.8 MEQ/L Anion Gap 9 MEQ/L Estimat Glomerular Filtration Rate 101 ML/MIN Physical Exam General General Appearance: Well Developed, Well Nourished, Anxious Appearance Remarks Acute respiratory distress mild. Eyes Eye Exam: Pupils Equal, Pupils Reactive, Sclera White, Extraocular Movement Intact Throat Throat Remarks Oral Thrush. Neck Neck Exam: Neck Supple, Trachea Midline Pulmonary Resp Exam: Diminished Breath Sounds, Labored Resp Remarks Bilateral wheezing and crackles. Cardiology CV Exam: Normal Sinus Rhythm, Tachycardia Gastrointestinal/Abdomen GI Exam: Soft, Non-Tender, Bowel Sounds Present, Distended Musculoskeletal MS Exam: Joints Intact Integumentary Skin Exam: Dry Skin Remarks Pressure wound at both buttock area. Extremeties Extremities Exam: Moderate Edema, Pitting Edema Neurologic Neuro Exam: Alert, Awake, Oriented, Moving All Extremities, No Focal Deficits Psychiatric Psych Exam: Appropriate Responses VTE Prophylaxis VTE Remarks Eliquis PUD Prophylasis PUD Prophylaxis: Protonix Assessment/Plan Assessment/Plan ASSESSMENT AND PLAN: This is a 52-year-old male who came to the ER, diagnosed with: 1. Acute respiratory failure secondary to chronic obstructive pulmonary disease/asthma exacerbation. on BIPAP Now critical care input noted. The patient is on DuoNeb nebulization. The patient also on Solu-Medrol 40 mg every 12 hour. The patient is also on Symbicort inhaler, Singulair 10 mg P.O. daily. Pulmonary input noted. Further recommendation per pulmonary. 2. History of COPD/asthma. Continue home medication. 3. History of benign prostatic hypertrophy. Continue with Flomax 0.4 mg p.o. daily. 4. History of hyperlipidemia. Continue with Lipitor 40 mg p.o. daily. 5. Diabetes mellitus. ADA 1800 calorie diet. NovoLog low dose sliding scale. Check blood sugar with meals and at bedtime. Continue Metformin 500 mg twice a day. We will monitor blood sugar closely. on levemir 25 units BID blood sugar still high Increase to 35 units BID. will monitor sugar. 6. History of deep venous thrombosis and pulmonary embolism. The patient on Eliquis 5 mg twice a day. 7. History of hypertension. Continue with diltiazem 360 mg p.o. daily. 8. Iron deficiency anemia. The patient is on ferrous sulfate 325 mg twice a day. 9. Leg edema and generalized edema. The patient is on Lasix 40 mg daily. 10. Anxiety. Continue lorazepam 0.5 mg twice a day. 11. Gastroesophageal reflux disease. Protonix 40 mg p.o. daily. 12. Depression. Continue with Paxil 20 mg p.o. daily. 13. History of oral thrush. The patient is on nystatin 5 mL 4 times a day. 14. Deep venous thrombosis prophylaxis, Eliquis 5 mg twice a day. 15. Gastrointestinal prophylaxis, Protonix 40 mg p.o. daily. 16. Renal Insufficency on Diuretic. better. 17. Leukocytosis monitoring. 18. Hypokalemia resolved. 19. Pressure wound at both buttock area getting treatment. 20. Leg edema Increase Lasix to 40 mg IV BID. Check CBC, CMP in the morning. We are going to manage the patient on a daily basis and make recommendations on daily basis. Discussed Condition with: Patient Myron Woodward MD January 16, 2018 18:53
[2018-01-16] MEDS: ATORVASTATIN 40 MG TAB PO SCH (21:44)
[2018-01-16] MEDS: MONTELUKAST SODIUM 10 MG TAB PO SCH (21:44)
[2018-01-17] VITALS (14 sets, daily range): BP systolic 132–156; BP diastolic 73–97; PULSE 86–113; RESP 18–20; TEMP 97.6–98.5; O2SAT 95–98
[2018-01-17] MEDS: RESP: ALBUTEROL 2.5 MG/3 ML NEB (PRN) INH ×6 (01:25→23:26)
[2018-01-17] MEDS ORDERED: INSULIN ASPART 1,000 UNITS/10 ML VIAL SQ ONE (05:30)
[2018-01-17] MEDS: ALUMINUM/MAGNESIUM/SIMETH 30 ML CUP PO SCH ×2 (06:00→06:02)
[2018-01-17] MEDS: FUROSEMIDE 40 MG/4 ML VIAL IV SCH ×2 (06:02→18:14)
[2018-01-17] MEDS ORDERED: ALUMINUM/MAGNESIUM/SIMETH 30 ML CUP PO PRN (06:30)
[2018-01-17] MEDS: LISINOPRIL 5 MG TAB PO SCH ×2 (09:35→20:55)
[2018-01-17] MEDS: DILTIAZEM-CD 180 MG CAP ER PO SCH (09:35)
[2018-01-17] MEDS: FERROUS SULFATE 325 MG (65 MG ELEMENTAL IRON) TAB PO SCH ×2 (09:35→20:56)
[2018-01-17] MEDS: PARoxetine HCL 20 MG TAB PO SCH (09:35)
[2018-01-17] MEDS: PANTOPRAZOLE SOD 40 MG DELAYED RELEASE TAB PO SCH (09:35)
[2018-01-17] MEDS: TAMSULOSIN HCL 0.4 MG CAP PO SCH (09:35)
[2018-01-17] MEDS: LORazepam 0.5 MG TAB PO SCH ×2 (09:35→20:55)
[2018-01-17] MEDS: POTASSIUM CHLORIDE 20 MEQ CONTROLLED RELEASE TAB PO SCH ×2 (09:36→20:55)
[2018-01-17] MEDS: INSULIN ASPART SUPPLEMENTAL SCALE SQ SCH ×4 (09:36→20:57)
[2018-01-17] MEDS: NYSTATIN SUSP 500,000 U/5 ML CUP SWISH-SWAL SCH ×4 (09:36→20:56)
[2018-01-17] MEDS: APIXABAN 5 MG TABLET PO SCH ×2 (09:36→20:56)
[2018-01-17] MEDS: guaiFENesin/DEXTROMETHORPHAN 200 MG/20 MG/10 ML CUP PO SCH ×4 (09:36→20:55)
[2018-01-17] MEDS: DOCUSATE SODIUM 50 MG/SENNA 8.6 MG TAB PO SCH ×2 (09:37→20:56)
[2018-01-17] MEDS: BUDESONIDE-FORMOTEROL 160/4.5 MCG INHALER INH SCH ×2 (09:37→20:54)
[2018-01-17] MEDS: FUROSEMIDE 40 MG/4 ML VIAL IV PUSH SCH (09:37)
[2018-01-17] MEDS: SODIUM CHLORIDE 0.9% FLUSH 10 ML FLUSH IV FLUSH SCH ×2 (09:37→20:56)
[2018-01-17] MEDS: methylPREDNISolone SOD SUCC 40 MG/1 ML VIAL IV PUSH SCH ×2 (09:37→20:56)
[2018-01-17] MEDS: INSULIN DETEMIR 100 UNITS/ML VIAL SQ SCH ×2 (09:38→20:57)
--- NOTE | 2018-01-17 14:13 | HHI.PR ---
Subjective History of Present Illness Patient still SOB/ Wheezing better, high blood sugar on regular medicine + . off Insulin drip Blood sugar high Increase Levemir to 40 units BID. restarted on metformin check Lab in AM, Discussed with patient at bed side. . Leukocytosis monitoring, have pressure ulcer at both buttock area. Review of Systems Constitutional Constitutional: Fatigue, Weakness Pulmonary Respiratory: Coughing, Shortness of Breath, Wheezing Cardiology CV Remarks edema. Integumentary Skin: Wounds Skin Remarks Pressure wound at both buttock area. Allergic/Immunologic Allergic/Immunologic: Asthma Vitals/Results Vital Signs Vital Signs Date Time Temp Pulse Resp B/P (MAP) Pulse Ox O2 Delivery O2 Flow Rate FiO2 01/17/18 12:00 98.5 110 20 151/74 (99) 97 01/17/18 12:00 Nasal Cannula 3.00 Humidified 01/17/18 08:33 98 Nasal Cannula 3.00 01/17/18 08:00 97.7 99 20 155/87 (109) 97 01/17/18 08:00 Nasal Cannula 3.00 Humidified 01/17/18 04:01 86 01/17/18 04:00 97.7 104 18 156/97 (116) 95 01/17/18 04:00 Nasal Cannula 3.00 Humidified 01/17/18 00:07 101 01/16/18 23:52 97.7 105 20 151/83 (105) 97 01/16/18 23:52 Nasal Cannula 3.00 Humidified 01/16/18 20:48 96 Nasal Cannula 3.00 01/16/18 20:01 102 01/16/18 20:00 Nasal Cannula 3.00 Humidified 01/16/18 20:00 97.5 106 20 139/84 (102) 98 01/16/18 18:39 112 01/16/18 18:09 95 Nasal Cannula 2.00 01/16/18 16:00 98.5 100 18 139/73 (95) 96 CBC/BMP: 01/16/18 0649 01/16/18 2143 Lab Results Laboratory Tests Test 01/16/18 18:48 01/16/18 21:43 Random Glucose 549 MG/DL 382 MG/DL Physical Exam General General Appearance: Well Developed, Well Nourished, Anxious Appearance Remarks Acute respiratory distress mild. Eyes Eye Exam: Pupils Equal, Pupils Reactive, Sclera White, Extraocular Movement Intact Throat Throat Remarks Oral Thrush. Neck Neck Exam: Neck Supple, Trachea Midline Pulmonary Resp Exam: Diminished Breath Sounds, Labored Resp Remarks Bilateral wheezing and crackles. Cardiology CV Exam: Normal Sinus Rhythm, Tachycardia Gastrointestinal/Abdomen GI Exam: Soft, Non-Tender, Bowel Sounds Present, Distended Musculoskeletal MS Exam: Joints Intact Integumentary Skin Exam: Dry Skin Remarks Pressure wound at both buttock area. Extremeties Extremities Exam: Moderate Edema, Pitting Edema Neurologic Neuro Exam: Alert, Awake, Oriented, Moving All Extremities, No Focal Deficits Psychiatric Psych Exam: Appropriate Responses VTE Prophylaxis VTE Remarks Eliquis PUD Prophylasis PUD Prophylaxis: Protonix Assessment/Plan Assessment/Plan ASSESSMENT AND PLAN: This is a 52-year-old male who came to the ER, diagnosed with: 1. Acute respiratory failure secondary to chronic obstructive pulmonary disease/asthma exacerbation. on BIPAP Now critical care input noted. The patient is on DuoNeb nebulization. The patient also on Solu-Medrol 40 mg every 12 hour. The patient is also on Symbicort inhaler, Singulair 10 mg P.O. daily. Pulmonary input noted. Further recommendation per pulmonary. 2. History of COPD/asthma. Continue home medication. 3. History of benign prostatic hypertrophy. Continue with Flomax 0.4 mg p.o. daily. 4. History of hyperlipidemia. Continue with Lipitor 40 mg p.o. daily. 5. Diabetes mellitus. ADA 1800 calorie diet. NovoLog low dose sliding scale. Check blood sugar with meals and at bedtime. Continue Metformin 500 mg twice a day. We will monitor blood sugar closely. Restarted on metformin 500 mg PO BID. on levemir 35 units BID blood sugar still high Increase to 40 units BID. will monitor sugar. 6. History of deep venous thrombosis and pulmonary embolism. The patient on Eliquis 5 mg twice a day. 7. History of hypertension. Continue with diltiazem 360 mg p.o. daily. 8. Iron deficiency anemia. The patient is on ferrous sulfate 325 mg twice a day. 9. Leg edema and generalized edema. The patient is on Lasix 40 mg daily. 10. Anxiety. Continue lorazepam 0.5 mg twice a day. 11. Gastroesophageal reflux disease. Protonix 40 mg p.o. daily. 12. Depression. Continue with Paxil 20 mg p.o. daily. 13. History of oral thrush. The patient is on nystatin 5 mL 4 times a day. 14. Deep venous thrombosis prophylaxis, Eliquis 5 mg twice a day. 15. Gastrointestinal prophylaxis, Protonix 40 mg p.o. daily. 16. Renal Insufficency on Diuretic. better. 17. Leukocytosis monitoring. 18. Hypokalemia resolved. 19. Pressure wound at both buttock area getting treatment. 20. Leg edema Increase Lasix to 40 mg IV BID. Check CBC, CMP in the morning. We are going to manage the patient on a daily basis and make recommendations on daily basis. Discussed Condition with: Patient Myron Woodward MD January 17, 2018 14:13
[2018-01-17] MEDS: metFORMIN HCL 500 MG TAB PO SCH (18:14)
[2018-01-17] MEDS: ATORVASTATIN 40 MG TAB PO SCH (20:55)
[2018-01-17] MEDS: MONTELUKAST SODIUM 10 MG TAB PO SCH (20:55)
[2018-01-18] VITALS (13 sets, daily range): BP systolic 115–152; BP diastolic 75–87; PULSE 92–121; RESP 18–20; TEMP 97.4–98.5; O2SAT 96–98
[2018-01-18] MEDS: RESP: ALBUTEROL 2.5 MG/3 ML NEB (PRN) INH ×6 (03:02→23:33)
[2018-01-18 05:34] LABS: HEMATOCRIT 40.3 % (39.0-51.0); HEMOGLOBIN 13.5 GM/DL (13.0-17.0); LYMPH % 2.4 % (9.0-44.0); LYMPHOCYTE # 0.4 TH/MM3 (1.0-4.8); MEAN CELL VOLUME 87.1 FL (80.0-100.0); MEAN CORPUSCULAR HEMOGLOBIN 29.2 PG (27.0-34.0); MEAN CORPUSCULAR HGB CONC 33.5 % (32.0-36.0); MEAN PLATELET VOLUME 8.3 FL (7.0-11.0); MONO % 3.6 % (0.0-8.0); MONOCYTE # 0.6 TH/MM3 (0-0.9); PLATELET COUNT 119 TH/MM3 (150-450); RED BLOOD COUNT 4.63 MIL/MM3 (4.50-5.90); RED CELL DISTRIBUTION WIDTH 17.2 % (11.6-17.2)
[2018-01-18] MEDS: FUROSEMIDE 40 MG/4 ML VIAL IV SCH ×2 (05:39→18:17)
[2018-01-18 06:01] LABS: ALKALINE PHOSPHATASE 110 U/L (45-117); TOTAL BILIRUBIN ADULT 0.5 MG/DL (0.2-1.0); TOTAL PROTEIN 5.3 GM/DL (6.4-8.2)
[2018-01-18 06:04] LABS: ALBUMIN 2.6 GM/DL (3.4-5.0); ALT (GPT) 73 U/L (12-78); AST (GOT) 26 U/L (15-37); BICARBONATE 31.1 MEQ/L (21.0-32.0); BLOOD UREA NITROGEN 20 MG/DL (7-18); CALCIUM 8.3 MG/DL (8.5-10.1); CHLORIDE 96 MEQ/L (98-107); CREATININE 0.86 MG/DL (0.60-1.30); GLOMERULAR FILTRATION RATE 93 ML/MIN (>89); GLUCOSE,RANDOM 312 MG/DL (74-106); SODIUM (NA) 136 MEQ/L (136-145)
[2018-01-18] MEDS: LORazepam 0.5 MG TAB PO SCH ×2 (09:53→20:48)
[2018-01-18] MEDS: PARoxetine HCL 20 MG TAB PO SCH (09:53)
[2018-01-18] MEDS: NYSTATIN SUSP 500,000 U/5 ML CUP SWISH-SWAL SCH ×4 (09:53→20:48)
[2018-01-18] MEDS: guaiFENesin/DEXTROMETHORPHAN 200 MG/20 MG/10 ML CUP PO SCH ×4 (09:53→20:47)
[2018-01-18] MEDS: FERROUS SULFATE 325 MG (65 MG ELEMENTAL IRON) TAB PO SCH ×2 (09:54→20:48)
[2018-01-18] MEDS: PANTOPRAZOLE SOD 40 MG DELAYED RELEASE TAB PO SCH (09:54)
[2018-01-18] MEDS: APIXABAN 5 MG TABLET PO SCH ×2 (09:54→20:48)
[2018-01-18] MEDS: DILTIAZEM-CD 180 MG CAP ER PO SCH (09:54)
[2018-01-18] MEDS: TAMSULOSIN HCL 0.4 MG CAP PO SCH (09:54)
[2018-01-18] MEDS: POTASSIUM CHLORIDE 20 MEQ CONTROLLED RELEASE TAB PO SCH ×2 (09:54→20:48)
[2018-01-18] MEDS: metFORMIN HCL 500 MG TAB PO SCH (09:54)
[2018-01-18] MEDS: INSULIN DETEMIR 100 UNITS/ML VIAL SQ SCH ×2 (09:55→20:49)
[2018-01-18] MEDS: LISINOPRIL 5 MG TAB PO SCH ×2 (09:55→20:48)
[2018-01-18] MEDS: INSULIN ASPART SUPPLEMENTAL SCALE SQ SCH ×4 (09:55→20:49)
[2018-01-18] MEDS: SODIUM CHLORIDE 0.9% FLUSH 10 ML FLUSH IV FLUSH SCH ×2 (09:55→20:49)
[2018-01-18] MEDS: methylPREDNISolone SOD SUCC 40 MG/1 ML VIAL IV PUSH SCH (09:55)
[2018-01-18] MEDS: DOCUSATE SODIUM 50 MG/SENNA 8.6 MG TAB PO SCH ×2 (09:55→20:48)
[2018-01-18] MEDS: BUDESONIDE-FORMOTEROL 160/4.5 MCG INHALER INH SCH ×2 (09:56→20:47)
--- NOTE | 2018-01-18 10:29 | HHI.PR ---
Subjective History of Present Illness Patient still SOB/ Wheezing better, high blood sugar on regular medicine + . off Insulin drip Blood sugar high on Levemir to 40 units BID. Increase metformin to 850 mg PO BID. check Lab in AM, Discussed with patient at bed side. . Leukocytosis monitoring, have pressure ulcer at both buttock area. Review of Systems Constitutional Constitutional: Fatigue, Weakness Pulmonary Respiratory: Coughing, Shortness of Breath, Wheezing Cardiology CV Remarks edema. Integumentary Skin: Wounds Skin Remarks Pressure wound at both buttock area. Allergic/Immunologic Allergic/Immunologic: Asthma Vitals/Results Vital Signs Vital Signs Date Time Temp Pulse Resp B/P (MAP) Pulse Ox O2 Delivery O2 Flow Rate FiO2 01/18/18 08:00 Nasal Cannula 3.00 Humidified 01/18/18 08:00 97.7 102 20 152/76 (101) 98 01/18/18 07:31 97 Nasal Cannula 3.00 01/18/18 04:00 Nasal Cannula 3.00 01/18/18 04:00 98.0 98 19 140/85 (103) 96 01/18/18 03:59 92 01/18/18 00:00 Nasal Cannula 3.00 01/18/18 00:00 97.4 109 18 140/80 (100) 96 01/17/18 23:44 104 01/17/18 20:35 102 01/17/18 20:00 Nasal Cannula 3.00 01/17/18 20:00 97.6 108 18 134/73 (93) 96 01/17/18 19:26 98 Nasal Cannula 3.00 01/17/18 16:11 92 01/17/18 16:00 Nasal Cannula 3.00 Humidified 01/17/18 16:00 98.1 113 20 132/85 (101) 97 01/17/18 12:00 98.5 110 20 151/74 (99) 97 01/17/18 12:00 Nasal Cannula 3.00 Humidified 01/17/18 11:28 107 CBC/BMP: 01/18/18 0437 01/18/18 0437 Lab Results Laboratory Tests Test 01/18/18 04:37 White Blood Count 16.0 TH/MM3 Red Blood Count 4.63 MIL/MM3 Hemoglobin 13.5 GM/DL Hematocrit 40.3 % Mean Corpuscular Volume 87.1 FL Mean Corpuscular Hemoglobin 29.2 PG Mean Corpuscular Hemoglobin Concent 33.5 % Red Cell Distribution Width 17.2 % Platelet Count 119 TH/MM3 Mean Platelet Volume 8.3 FL Neutrophils (%) (Auto) 94.0 % Lymphocytes (%) (Auto) 2.4 % Monocytes (%) (Auto) 3.6 % Eosinophils (%) (Auto) 0.0 % Basophils (%) (Auto) 0.0 % Neutrophils # (Auto) 15.0 TH/MM3 Lymphocytes # (Auto) 0.4 TH/MM3 Monocytes # (Auto) 0.6 TH/MM3 Eosinophils # (Auto) 0.0 TH/MM3 Basophils # (Auto) 0.0 TH/MM3 CBC Comment AUTO DIFF Blood Urea Nitrogen 20 MG/DL Creatinine 0.86 MG/DL Random Glucose 312 MG/DL Total Protein 5.3 GM/DL Albumin 2.6 GM/DL Calcium Level 8.3 MG/DL Alkaline Phosphatase 110 U/L Aspartate Amino Transf (AST/SGOT) 26 U/L Alanine Aminotransferase (ALT/SGPT) 73 U/L Total Bilirubin 0.5 MG/DL Sodium Level 136 MEQ/L Potassium Level 4.6 MEQ/L Chloride Level 96 MEQ/L Carbon Dioxide Level 31.1 MEQ/L Anion Gap 9 MEQ/L Estimat Glomerular Filtration Rate 93 ML/MIN Physical Exam General General Appearance: Well Developed, Well Nourished, Anxious Appearance Remarks Acute respiratory distress mild. Eyes Eye Exam: Pupils Equal, Pupils Reactive, Sclera White, Extraocular Movement Intact Throat Throat Remarks Oral Thrush. Neck Neck Exam: Neck Supple, Trachea Midline Pulmonary Resp Exam: Diminished Breath Sounds, Labored Resp Remarks Bilateral wheezing and crackles. Cardiology CV Exam: Normal Sinus Rhythm, Tachycardia Gastrointestinal/Abdomen GI Exam: Soft, Non-Tender, Bowel Sounds Present, Distended Musculoskeletal MS Exam: Joints Intact Integumentary Skin Exam: Dry Skin Remarks Pressure wound at both buttock area. Extremeties Extremities Exam: Moderate Edema, Pitting Edema Neurologic Neuro Exam: Alert, Awake, Oriented, Moving All Extremities, No Focal Deficits Psychiatric Psych Exam: Appropriate Responses VTE Prophylaxis VTE Remarks Eliquis PUD Prophylasis PUD Prophylaxis: Protonix Assessment/Plan Assessment/Plan ASSESSMENT AND PLAN: This is a 52-year-old male who came to the ER, diagnosed with: 1. Acute respiratory failure secondary to chronic obstructive pulmonary disease/asthma exacerbation. on BIPAP Now critical care input noted. The patient is on DuoNeb nebulization. The patient also on Solu-Medrol 40 mg every 12 hour. The patient is also on Symbicort inhaler, Singulair 10 mg P.O. daily. Pulmonary input noted. Further recommendation per pulmonary. 2. History of COPD/asthma. Continue home medication. 3. History of benign prostatic hypertrophy. Continue with Flomax 0.4 mg p.o. daily. 4. History of hyperlipidemia. Continue with Lipitor 40 mg p.o. daily. 5. Diabetes mellitus. ADA 1800 calorie diet. NovoLog low dose sliding scale. Check blood sugar with meals and at bedtime. Continue Metformin 500 mg twice a day. We will monitor blood sugar closely. Increase metformin 850 mg PO BID. on Levemir 40 units BID will monitor sugar. 6. History of deep venous thrombosis and pulmonary embolism. The patient on Eliquis 5 mg twice a day. 7. History of hypertension. Continue with diltiazem 360 mg p.o. daily. 8. Iron deficiency anemia. The patient is on ferrous sulfate 325 mg twice a day. 9. Leg edema and generalized edema. The patient is on Lasix 40 mg daily. 10. Anxiety. Continue lorazepam 0.5 mg twice a day. 11. Gastroesophageal reflux disease. Protonix 40 mg p.o. daily. 12. Depression. Continue with Paxil 20 mg p.o. daily. 13. History of oral thrush. The patient is on nystatin 5 mL 4 times a day. 14. Deep venous thrombosis prophylaxis, Eliquis 5 mg twice a day. 15. Gastrointestinal prophylaxis, Protonix 40 mg p.o. daily. 16. Renal Insufficency on Diuretic. better. 17. Leukocytosis monitoring. 18. Hypokalemia resolved. 19. Pressure wound at both buttock area getting treatment. 20. Leg edema Increase Lasix to 40 mg IV BID. Check CBC, CMP in the morning. We are going to manage the patient on a daily basis and make recommendations on daily basis. Discussed Condition with: Patient Mryon Woodward MD January 18, 2018 10:29
[2018-01-18 10:53] LABS: LYMPHOCYTES 3 % (9-44); METAMYELOCYTES 1 % (0-1); MONOCYTES 3 % (0-8); MYELOCYTES 3 % (0-0); POLYS (SEG NEUTROPHILS) 90 % (16-70)
[2018-01-18 10:54] LABS: BURR CELLS 1+ (NORMAL)
[2018-01-18] MEDS: metFORMIN HCL 850 MG TAB PO SCH ×2 (15:21→18:16)
[2018-01-18] MEDS: predniSONE 20 MG TAB PO SCH ×2 (15:21→20:48)
[2018-01-18] MEDS: MONTELUKAST SODIUM 10 MG TAB PO SCH (20:48)
[2018-01-18] MEDS: ATORVASTATIN 40 MG TAB PO SCH (20:48)
[2018-01-19] VITALS (10 sets, daily range): BP systolic 104–161; BP diastolic 74–100; PULSE 99–127; RESP 19–22; TEMP 97.6–98.4; O2SAT 95–98
[2018-01-19] MEDS: RESP: ALBUTEROL 2.5 MG/3 ML NEB (PRN) INH ×2 (03:23→08:47)
[2018-01-19] MEDS: FUROSEMIDE 40 MG/4 ML VIAL IV SCH ×2 (05:06→17:11)
[2018-01-19] MEDS: metFORMIN HCL 850 MG TAB PO SCH (09:09)
[2018-01-19] MEDS: PANTOPRAZOLE SOD 40 MG DELAYED RELEASE TAB PO SCH (09:09)
[2018-01-19] MEDS: DOCUSATE SODIUM 50 MG/SENNA 8.6 MG TAB PO SCH ×2 (09:09→21:00)
[2018-01-19] MEDS: APIXABAN 5 MG TABLET PO SCH ×2 (09:10→21:16)
[2018-01-19] MEDS: LISINOPRIL 5 MG TAB PO SCH ×2 (09:10→21:16)
[2018-01-19] MEDS: PARoxetine HCL 20 MG TAB PO SCH (09:10)
[2018-01-19] MEDS: TAMSULOSIN HCL 0.4 MG CAP PO SCH (09:10)
[2018-01-19] MEDS: predniSONE 20 MG TAB PO SCH ×2 (09:10→21:15)
[2018-01-19] MEDS: NYSTATIN SUSP 500,000 U/5 ML CUP SWISH-SWAL SCH ×4 (09:11→21:15)
[2018-01-19] MEDS: guaiFENesin/DEXTROMETHORPHAN 200 MG/20 MG/10 ML CUP PO SCH ×4 (09:11→21:15)
[2018-01-19] MEDS: LORazepam 0.5 MG TAB PO SCH ×2 (09:11→21:16)
[2018-01-19] MEDS: DILTIAZEM-CD 180 MG CAP ER PO SCH (09:11)
[2018-01-19] MEDS: POTASSIUM CHLORIDE 20 MEQ CONTROLLED RELEASE TAB PO SCH ×2 (09:11→21:16)
[2018-01-19] MEDS: FERROUS SULFATE 325 MG (65 MG ELEMENTAL IRON) TAB PO SCH ×2 (09:11→21:15)
[2018-01-19] MEDS: BUDESONIDE-FORMOTEROL 160/4.5 MCG INHALER INH SCH ×2 (09:12→21:14)
[2018-01-19] MEDS: SODIUM CHLORIDE 0.9% FLUSH 10 ML FLUSH IV FLUSH SCH ×2 (09:12→21:16)
[2018-01-19] MEDS: INSULIN DETEMIR 100 UNITS/ML VIAL SQ SCH ×2 (09:14→21:15)
[2018-01-19] MEDS: INSULIN ASPART SUPPLEMENTAL SCALE SQ SCH ×4 (09:15→21:15)
--- NOTE | 2018-01-19 09:17 | HHI.PR ---
Subjective History of Present Illness Patient still SOB/ Wheezing. Blood sugar high on Levemir to 40 units BID. Increase metformin to 1000 mg PO BID. check Lab in AM, Discussed with patient at bed side. . Leukocytosis monitoring, have pressure ulcer at both buttock area. Review of Systems Constitutional Constitutional: Fatigue, Weakness Pulmonary Respiratory: Coughing, Shortness of Breath, Wheezing Cardiology CV Remarks edema. Integumentary Skin: Wounds Skin Remarks Pressure wound at both buttock area. Allergic/Immunologic Allergic/Immunologic: Asthma Vitals/Results Vital Signs Vital Signs Date Time Temp Pulse Resp B/P (MAP) Pulse Ox O2 Delivery O2 Flow Rate FiO2 01/19/18 08:49 95 Nasal Cannula 3.00 01/19/18 08:05 Nasal Cannula 3.00 01/19/18 04:00 Nasal Cannula 3.00 01/19/18 04:00 102 01/19/18 04:00 98.3 102 20 120/84 (96) 96 01/19/18 00:00 108 01/19/18 00:00 98.4 127 22 122/87 (99) 97 01/19/18 00:00 Nasal Cannula 3.00 01/18/18 23:35 98 Nasal Cannula 2.00 01/18/18 20:00 Nasal Cannula 3.00 01/18/18 20:00 98.5 119 20 115/87 (96) 96 01/18/18 20:00 117 01/18/18 16:06 93 01/18/18 16:00 98.0 102 20 138/75 (96) 96 01/18/18 16:00 Nasal Cannula 3.00 Humidified 01/18/18 15:24 97 Nasal Cannula 3.00 01/18/18 12:00 98.1 98 20 139/78 (98) 97 01/18/18 12:00 Nasal Cannula 3.00 Humidified 01/18/18 11:43 121 CBC/BMP: 01/18/18 0437 01/18/18 0437 Physical Exam General General Appearance: Well Developed, Well Nourished, Anxious Appearance Remarks Acute respiratory distress mild. Eyes Eye Exam: Pupils Equal, Pupils Reactive, Sclera White, Extraocular Movement Intact Throat Throat Remarks Oral Thrush. Neck Neck Exam: Neck Supple, Trachea Midline Pulmonary Resp Exam: Diminished Breath Sounds, Labored Resp Remarks Bilateral wheezing and crackles. Cardiology CV Exam: Normal Sinus Rhythm, Tachycardia Gastrointestinal/Abdomen GI Exam: Soft, Non-Tender, Bowel Sounds Present, Distended Musculoskeletal MS Exam: Joints Intact Integumentary Skin Exam: Dry Skin Remarks Pressure wound at both buttock area. Extremeties Extremities Exam: Moderate Edema, Pitting Edema Neurologic Neuro Exam: Alert, Awake, Oriented, Moving All Extremities, No Focal Deficits Psychiatric Psych Exam: Appropriate Responses VTE Prophylaxis VTE Remarks Eliquis PUD Prophylasis PUD Prophylaxis: Protonix Assessment/Plan Assessment/Plan ASSESSMENT AND PLAN: This is a 52-year-old male who came to the ER, diagnosed with: 1. Acute respiratory failure secondary to chronic obstructive pulmonary disease/asthma exacerbation. on BIPAP Now critical care input noted. The patient is on DuoNeb nebulization. The patient also on Solu-Medrol 40 mg every 12 hour. The patient is also on Symbicort inhaler, Singulair 10 mg P.O. daily. Pulmonary input noted. Further recommendation per pulmonary. 2. History of COPD/asthma. Continue home medication. 3. History of benign prostatic hypertrophy. Continue with Flomax 0.4 mg p.o. daily. 4. History of hyperlipidemia. Continue with Lipitor 40 mg p.o. daily. 5. Diabetes mellitus. ADA 1800 calorie diet. NovoLog low dose sliding scale. Check blood sugar with meals and at bedtime. Increase Metformin 1000 mg twice a day. We will monitor blood sugar closely. on Levemir 40 units BID will monitor sugar. 6. History of deep venous thrombosis and pulmonary embolism. The patient on Eliquis 5 mg twice a day. 7. History of hypertension. Continue with diltiazem 360 mg p.o. daily. 8. Iron deficiency anemia. The patient is on ferrous sulfate 325 mg twice a day. 9. Leg edema and generalized edema. The patient is on Lasix 40 mg daily. 10. Anxiety. Continue lorazepam 0.5 mg twice a day. 11. Gastroesophageal reflux disease. Protonix 40 mg p.o. daily. 12. Depression. Continue with Paxil 20 mg p.o. daily. 13. History of oral thrush. The patient is on nystatin 5 mL 4 times a day. 14. Deep venous thrombosis prophylaxis, Eliquis 5 mg twice a day. 15. Gastrointestinal prophylaxis, Protonix 40 mg p.o. daily. 16. Renal Insufficency on Diuretic. better. 17. Leukocytosis monitoring. 18. Hypokalemia resolved. 19. Pressure wound at both buttock area getting treatment. 20. Leg edema on Lasix to 40 mg IV BID. Check CBC, CMP in the morning. We are going to manage the patient on a daily basis and make recommendations on daily basis. Discussed Condition with: Patient Myorn Woodward MD January 19, 2018 09:17
[2018-01-19] MEDS: RESP: ALBUTEROL 2.5 MG/IPRATROPIUM 0.5 MG NEB (SCH) NEB ×3 (11:54→19:41)
[2018-01-19] MEDS: metFORMIN HCL 500 MG TAB PO SCH ×2 (12:55→17:11)
--- NOTE | 2018-01-19 16:33 | HHI.PR ---
Subjective Remarks ALERT NO DISTRESS ELEVATED GLUCOSE LEVELS Objective Vital Signs Date Time Temp Pulse Resp B/P (MAP) Pulse Ox O2 Delivery O2 Flow Rate FiO2 01/19/18 08:49 95 Nasal Cannula 3.00 01/19/18 08:05 Nasal Cannula 3.00 01/19/18 08:00 97.6 110 20 161/100 (120) 98 01/19/18 04:00 Nasal Cannula 3.00 01/19/18 04:00 102 01/19/18 04:00 98.3 102 20 120/84 (96) 96 01/19/18 00:00 108 01/19/18 00:00 98.4 127 22 122/87 (99) 97 01/19/18 00:00 Nasal Cannula 3.00 01/18/18 23:35 98 Nasal Cannula 2.00 01/18/18 20:00 Nasal Cannula 3.00 01/18/18 20:00 98.5 119 20 115/87 (96) 96 01/18/18 20:00 117 I/O 01/18/18 01/18/18 01/18/18 01/19/18 01/19/18 01/19/18 07:00 15:00 23:00 07:00 15:00 23:00 Intake Total 1040 ml 960 ml 480 ml Output Total 800 ml 1450 ml Balance 240 ml 960 ml -970 ml Intake Oral 1040 ml 960 ml 480 ml Output Urine Total 800 ml 1450 ml # Voids 5 # Bowel Movements 0 2 Result Diagram: 01/18/18 0437 01/18/18 0437 Objective Remarks GENERAL: SKIN: Warm and dry. HEAD: Atraumatic. Normocephalic. EYES: Pupils equal and round. No scleral icterus. No injection or drainage. ENT: No nasal bleeding or discharge. Mucous membranes pink and moist. NECK: Trachea midline. No JVD. CARDIOVASCULAR: Regular rate and rhythm. RESPIRATORY: No accessory muscle use. WHEEZING BILATERALY to auscultation. Breath sounds equal bilaterally. GASTROINTESTINAL: Abdomen soft, non-tender, nondistended. Hepatic and splenic margins not palpable. MUSCULOSKELETAL: Extremities without clubbing, cyanosis, or edema. No obvious deformities. NEUROLOGICAL: Awake and alert. No obvious cranial nerve deficits. Motor grossly within normal limits. Five out of 5 muscle strength in the arms and legs. Normal speech. PSYCHIATRIC: Appropriate mood and affect; insight and judgment normal. Assessment and Plan Assessment and Plan ass: asthma exacerbation SLOWLY IMPROVING DM POORLY CONTROLLED plan O2/ BIPAP BRONCHODILATORS INCREASE ACTIVITY TAPER STEROIDS Mary Hernandez MD January 19, 2018 16:33
[2018-01-19] MEDS: MONTELUKAST SODIUM 10 MG TAB PO SCH (21:15)
[2018-01-19] MEDS: ATORVASTATIN 40 MG TAB PO SCH (21:16)
[2018-01-20] VITALS (12 sets, daily range): BP systolic 105–131; BP diastolic 66–82; PULSE 99–129; RESP 18–23; TEMP 97.8–98.6; O2SAT 95–97
[2018-01-20] MEDS: RESP: ALBUTEROL 2.5 MG/IPRATROPIUM 0.5 MG NEB (SCH) NEB ×7 (00:16→23:37)
[2018-01-20] MEDS: FUROSEMIDE 40 MG/4 ML VIAL IV SCH ×2 (06:05→18:13)
[2018-01-20 06:22] LABS: BASOPHIL % 0.1 % (0.0-2.0); EOSINOPHIL % 0.2 % (0.0-4.0); HEMATOCRIT 41.6 % (39.0-51.0); HEMOGLOBIN 14.2 GM/DL (13.0-17.0); LYMPH % 4.9 % (9.0-44.0); LYMPHOCYTE # 0.8 TH/MM3 (1.0-4.8); MEAN CELL VOLUME 86.6 FL (80.0-100.0); MEAN CORPUSCULAR HEMOGLOBIN 29.4 PG (27.0-34.0); MEAN PLATELET VOLUME 7.7 FL (7.0-11.0); MONO % 5.3 % (0.0-8.0); MONOCYTE # 0.8 TH/MM3 (0-0.9); NEUT % 89.5 % (16.0-70.0); PLATELET COUNT 127 TH/MM3 (150-450); RED BLOOD COUNT 4.81 MIL/MM3 (4.50-5.90); RED CELL DISTRIBUTION WIDTH 17.5 % (11.6-17.2); WHITE BLOOD COUNT 15.7 TH/MM3 (4.0-11.0)
[2018-01-20] MEDS: INSULIN ASPART SUPPLEMENTAL SCALE SQ SCH ×4 (08:00→21:00)
[2018-01-20 08:06] LABS: BLOOD UREA NITROGEN 21 MG/DL (7-18)
[2018-01-20 08:07] LABS: ALBUMIN 2.8 GM/DL (3.4-5.0); CALCIUM 8.9 MG/DL (8.5-10.1); CREATININE 0.68 MG/DL (0.60-1.30); GLOMERULAR FILTRATION RATE 122 ML/MIN (>89); GLUCOSE,RANDOM 81 MG/DL (74-106); TOTAL PROTEIN 5.3 GM/DL (6.4-8.2)
[2018-01-20 08:08] LABS: ALKALINE PHOSPHATASE 100 U/L (45-117); ALT (GPT) 74 U/L (12-78); AST (GOT) 20 U/L (15-37); CHLORIDE 94 MEQ/L (98-107); SODIUM (NA) 134 MEQ/L (136-145); TOTAL BILIRUBIN ADULT 0.7 MG/DL (0.2-1.0)
[2018-01-20 08:50] LABS: BANDS 1 % (0-6); LYMPHOCYTES 9 % (9-44); METAMYELOCYTES 1 % (0-1); MONOCYTES 3 % (0-8); MYELOCYTES 1 % (0-0); NEUTROPHIL # MANUAL DIFF 13.8 TH/MM3 (1.8-7.7); POLYS (SEG NEUTROPHILS) 85 % (16-70)
[2018-01-20 08:51] LABS: OVALOCYTES 1+ (NORMAL)
[2018-01-20] MEDS: INSULIN DETEMIR 100 UNITS/ML VIAL SQ SCH ×2 (09:00→21:00)
[2018-01-20] MEDS: PANTOPRAZOLE SOD 40 MG DELAYED RELEASE TAB PO SCH (09:00)
[2018-01-20] MEDS: SODIUM CHLORIDE 0.9% FLUSH 10 ML FLUSH IV FLUSH SCH ×2 (09:00→21:00)
[2018-01-20] MEDS: guaiFENesin/DEXTROMETHORPHAN 200 MG/20 MG/10 ML CUP PO SCH ×4 (09:48→21:38)
[2018-01-20] MEDS: PARoxetine HCL 20 MG TAB PO SCH (09:48)
[2018-01-20] MEDS: metFORMIN HCL 500 MG TAB PO SCH ×2 (09:48→18:13)
[2018-01-20] MEDS: predniSONE 20 MG TAB PO SCH ×2 (09:48→21:38)
[2018-01-20] MEDS: APIXABAN 5 MG TABLET PO SCH ×2 (09:49→21:38)
[2018-01-20] MEDS: DOCUSATE SODIUM 50 MG/SENNA 8.6 MG TAB PO SCH ×2 (09:49→21:38)
[2018-01-20] MEDS: POTASSIUM CHLORIDE 20 MEQ CONTROLLED RELEASE TAB PO SCH ×2 (09:50→21:38)
[2018-01-20] MEDS: LISINOPRIL 5 MG TAB PO SCH ×2 (09:51→21:38)
[2018-01-20] MEDS: TAMSULOSIN HCL 0.4 MG CAP PO SCH (09:51)
[2018-01-20] MEDS: LORazepam 0.5 MG TAB PO SCH ×2 (09:51→21:38)
[2018-01-20] MEDS: NYSTATIN SUSP 500,000 U/5 ML CUP SWISH-SWAL SCH ×4 (09:52→21:38)
[2018-01-20] MEDS: DILTIAZEM-CD 180 MG CAP ER PO SCH (09:52)
[2018-01-20] MEDS: FERROUS SULFATE 325 MG (65 MG ELEMENTAL IRON) TAB PO SCH ×2 (09:52→21:38)
[2018-01-20] MEDS: BUDESONIDE-FORMOTEROL 160/4.5 MCG INHALER INH SCH ×2 (09:56→21:36)
--- NOTE | 2018-01-20 17:01 | HHI.PR ---
Subjective History of Present Illness Patient still SOB/ Wheezing. Blood sugar high on Levemir to 40 units BID. Increase metformin to 1000 mg PO BID. check Lab in AM, Discussed with patient at bed side. . Leukocytosis monitoring, have pressure ulcer at both buttock area. Review of Systems Constitutional Constitutional: Fatigue, Weakness Pulmonary Respiratory: Coughing, Shortness of Breath, Wheezing Cardiology CV Remarks edema. Integumentary Skin: Wounds Skin Remarks Pressure wound at both buttock area. Allergic/Immunologic Allergic/Immunologic: Asthma Vitals/Results Vital Signs Vital Signs Date Time Temp Pulse Resp B/P (MAP) Pulse Ox O2 Delivery O2 Flow Rate FiO2 01/20/18 16:22 Nasal Cannula 3.00 01/20/18 13:45 Nasal Cannula 3.00 01/20/18 12:00 98.5 109 19 127/78 (94) 97 01/20/18 08:12 95 Nasal Cannula 3.00 01/20/18 08:00 Nasal Cannula 3.00 40 Humidified 01/20/18 08:00 98.6 129 18 114/66 (82) 96 01/20/18 04:04 99 01/20/18 04:00 98.1 102 18 131/82 (98) 96 01/20/18 04:00 Nasal Cannula 3.00 Humidified 01/20/18 00:01 98.2 106 18 128/82 (97) 97 01/20/18 00:00 Nasal Cannula 3.00 Humidified 01/19/18 23:52 113 01/19/18 20:00 98.0 108 19 141/74 (96) 97 01/19/18 20:00 Nasal Cannula 3.00 Humidified 01/19/18 19:50 109 01/19/18 19:43 96 Nasal Cannula 3.00 CBC/BMP: 01/20/18 0600 01/20/18 0600 Lab Results Laboratory Tests Test 01/20/18 06:00 White Blood Count 15.7 TH/MM3 Red Blood Count 4.81 MIL/MM3 Hemoglobin 14.2 GM/DL Hematocrit 41.6 % Mean Corpuscular Volume 86.6 FL Mean Corpuscular Hemoglobin 29.4 PG Mean Corpuscular Hemoglobin Concent 34.0 % Red Cell Distribution Width 17.5 % Platelet Count 127 TH/MM3 Mean Platelet Volume 7.7 FL Neutrophils (%) (Auto) 89.5 % Lymphocytes (%) (Auto) 4.9 % Monocytes (%) (Auto) 5.3 % Eosinophils (%) (Auto) 0.2 % Basophils (%) (Auto) 0.1 % Neutrophils # (Auto) 14.0 TH/MM3 Lymphocytes # (Auto) 0.8 TH/MM3 Monocytes # (Auto) 0.8 TH/MM3 Eosinophils # (Auto) 0.0 TH/MM3 Basophils # (Auto) 0.0 TH/MM3 CBC Comment AUTO DIFF Differential Total Cells Counted 100 Neutrophils % (Manual) 85 % Band Neutrophils % 1 % Lymphocytes % 9 % Monocytes % 3 % Neutrophils # (Manual) 13.8 TH/MM3 Metamyelocytes 1 % Myelocytes 1 % Differential Comment FINAL DIFF MANUAL Platelet Estimate LOW Platelet Morphology Comment NORMAL Ovalocytes 1+ Blood Urea Nitrogen 21 MG/DL Creatinine 0.68 MG/DL Random Glucose 81 MG/DL Total Protein 5.3 GM/DL Albumin 2.8 GM/DL Calcium Level 8.9 MG/DL Alkaline Phosphatase 100 U/L Aspartate Amino Transf (AST/SGOT) 20 U/L Alanine Aminotransferase (ALT/SGPT) 74 U/L Total Bilirubin 0.7 MG/DL Sodium Level 134 MEQ/L Potassium Level 4.1 MEQ/L Chloride Level 94 MEQ/L Carbon Dioxide Level 30.0 MEQ/L Anion Gap 10 MEQ/L Estimat Glomerular Filtration Rate 122 ML/MIN Physical Exam General General Appearance: Well Developed, Well Nourished, Anxious Appearance Remarks Acute respiratory distress mild. Eyes Eye Exam: Pupils Equal, Pupils Reactive, Sclera White, Extraocular Movement Intact Throat Throat Remarks Oral Thrush. Neck Neck Exam: Neck Supple, Trachea Midline Pulmonary Resp Exam: Diminished Breath Sounds, Labored Resp Remarks Bilateral wheezing and crackles. Cardiology CV Exam: Normal Sinus Rhythm, Tachycardia Gastrointestinal/Abdomen GI Exam: Soft, Non-Tender, Bowel Sounds Present, Distended Musculoskeletal MS Exam: Joints Intact Integumentary Skin Exam: Dry Skin Remarks Pressure wound at both buttock area. Extremeties Extremities Exam: Moderate Edema, Pitting Edema Neurologic Neuro Exam: Alert, Awake, Oriented, Moving All Extremities, No Focal Deficits Psychiatric Psych Exam: Appropriate Responses VTE Prophylaxis VTE Remarks Eliquis PUD Prophylasis PUD Prophylaxis: Protonix Assessment/Plan Assessment/Plan ASSESSMENT AND PLAN: This is a 52-year-old male who came to the ER, diagnosed with: 1. Acute respiratory failure secondary to chronic obstructive pulmonary disease/asthma exacerbation. on BIPAP Now critical care input noted. The patient is on DuoNeb nebulization. The patient also on Solu-Medrol 40 mg every 12 hour. The patient is also on Symbicort inhaler, Singulair 10 mg P.O. daily. Pulmonary input noted. Further recommendation per pulmonary. 2. History of COPD/asthma. Continue home medication. 3. History of benign prostatic hypertrophy. Continue with Flomax 0.4 mg p.o. daily. 4. History of hyperlipidemia. Continue with Lipitor 40 mg p.o. daily. 5. Diabetes mellitus. ADA 1800 calorie diet. NovoLog low dose sliding scale. Check blood sugar with meals and at bedtime. Increase Metformin 1000 mg twice a day. We will monitor blood sugar closely. on Levemir 40 units BID will monitor sugar. 6. History of deep venous thrombosis and pulmonary embolism. The patient on Eliquis 5 mg twice a day. 7. History of hypertension. Continue with diltiazem 360 mg p.o. daily. 8. Iron deficiency anemia. The patient is on ferrous sulfate 325 mg twice a day. 9. Leg edema and generalized edema. The patient is on Lasix 40 mg daily. 10. Anxiety. Continue lorazepam 0.5 mg twice a day. 11. Gastroesophageal reflux disease. Protonix 40 mg p.o. daily. 12. Depression. Continue with Paxil 20 mg p.o. daily. 13. History of oral thrush. The patient is on nystatin 5 mL 4 times a day. 14. Deep venous thrombosis prophylaxis, Eliquis 5 mg twice a day. 15. Gastrointestinal prophylaxis, Protonix 40 mg p.o. daily. 16. Renal Insufficency on Diuretic. better. 17. Leukocytosis monitoring. 18. Hypokalemia resolved. 19. Pressure wound at both buttock area getting treatment. 20. Leg edema on Lasix to 40 mg IV BID. Check CBC, CMP in the morning. We are going to manage the patient on a daily basis and make recommendations on daily basis. Myron Woodward MD January 20, 2018 17:01
[2018-01-20] MEDS: MONTELUKAST SODIUM 10 MG TAB PO SCH (21:38)
[2018-01-20] MEDS: ATORVASTATIN 40 MG TAB PO SCH (21:38)
[2018-01-21] VITALS (11 sets, daily range): BP systolic 109–128; BP diastolic 63–73; PULSE 96–112; RESP 17–18; TEMP 97.6–98.3; O2SAT 95–99
[2018-01-21] MEDS: RESP: ALBUTEROL 2.5 MG/IPRATROPIUM 0.5 MG NEB (SCH) NEB ×6 (03:28→23:47)
[2018-01-21] MEDS: FUROSEMIDE 40 MG/4 ML VIAL IV SCH ×2 (05:43→17:55)
[2018-01-21] MEDS: INSULIN ASPART SUPPLEMENTAL SCALE SQ SCH ×5 (08:00→21:00)
[2018-01-21 08:10] LABS: AUTOMATED NEUTROPHIL # 11.7 TH/MM3 (1.8-7.7); BASOPHIL % 0.1 % (0.0-2.0); EOSINOPHIL % 0.1 % (0.0-4.0); HEMATOCRIT 40.1 % (39.0-51.0); HEMOGLOBIN 13.4 GM/DL (13.0-17.0); LYMPH % 5.4 % (9.0-44.0); LYMPHOCYTE # 0.7 TH/MM3 (1.0-4.8); MEAN CELL VOLUME 87.1 FL (80.0-100.0); MEAN CORPUSCULAR HGB CONC 33.3 % (32.0-36.0); MEAN PLATELET VOLUME 7.9 FL (7.0-11.0); MONO % 4.7 % (0.0-8.0); MONOCYTE # 0.6 TH/MM3 (0-0.9); NEUT % 89.7 % (16.0-70.0); PLATELET COUNT 119 TH/MM3 (150-450); RED BLOOD COUNT 4.61 MIL/MM3 (4.50-5.90); RED CELL DISTRIBUTION WIDTH 17.6 % (11.6-17.2)
[2018-01-21 08:35] LABS: ALBUMIN 2.7 GM/DL (3.4-5.0); ALT (GPT) 71 U/L (12-78); AST (GOT) 22 U/L (15-37); BICARBONATE 30.4 MEQ/L (21.0-32.0); BLOOD UREA NITROGEN 20 MG/DL (7-18); CALCIUM 8.7 MG/DL (8.5-10.1); CHLORIDE 94 MEQ/L (98-107); CREATININE 0.66 MG/DL (0.60-1.30); GLOMERULAR FILTRATION RATE 126 ML/MIN (>89); GLUCOSE,RANDOM 139 MG/DL (74-106); SODIUM (NA) 136 MEQ/L (136-145)
[2018-01-21 08:36] LABS: ALKALINE PHOSPHATASE 99 U/L (45-117); TOTAL BILIRUBIN ADULT 0.6 MG/DL (0.2-1.0); TOTAL PROTEIN 5.2 GM/DL (6.4-8.2)
[2018-01-21 08:59] LABS: BANDS 7 % (0-6); LYMPHOCYTES 3 % (9-44); MONOCYTES 8 % (0-8); MYELOCYTES 5 % (0-0); NEUTROPHIL # MANUAL DIFF 11.6 TH/MM3 (1.8-7.7); POLYS (SEG NEUTROPHILS) 77 % (16-70)
[2018-01-21] MEDS: APIXABAN 5 MG TABLET PO SCH ×2 (08:59→21:51)
[2018-01-21] MEDS: guaiFENesin/DEXTROMETHORPHAN 200 MG/20 MG/10 ML CUP PO SCH ×4 (08:59→21:50)
[2018-01-21] MEDS: predniSONE 20 MG TAB PO SCH ×2 (08:59→21:51)
[2018-01-21] MEDS: NYSTATIN SUSP 500,000 U/5 ML CUP SWISH-SWAL SCH ×4 (08:59→21:50)
[2018-01-21] MEDS: metFORMIN HCL 500 MG TAB PO SCH ×2 (08:59→17:55)
[2018-01-21] MEDS: BUDESONIDE-FORMOTEROL 160/4.5 MCG INHALER INH SCH ×2 (08:59→21:50)
[2018-01-21] MEDS: PARoxetine HCL 20 MG TAB PO SCH (08:59)
[2018-01-21] MEDS: SODIUM CHLORIDE 0.9% FLUSH 10 ML FLUSH IV FLUSH SCH ×2 (09:00→21:00)
[2018-01-21] MEDS: LISINOPRIL 5 MG TAB PO SCH ×2 (09:00→21:52)
[2018-01-21] MEDS: FERROUS SULFATE 325 MG (65 MG ELEMENTAL IRON) TAB PO SCH ×2 (09:00→21:51)
[2018-01-21] MEDS: INSULIN DETEMIR 100 UNITS/ML VIAL SQ SCH ×2 (09:00→21:00)
[2018-01-21] MEDS: DILTIAZEM-CD 180 MG CAP ER PO SCH (09:00)
[2018-01-21] MEDS: POTASSIUM CHLORIDE 20 MEQ CONTROLLED RELEASE TAB PO SCH ×2 (09:00→21:52)
[2018-01-21] MEDS: DOCUSATE SODIUM 50 MG/SENNA 8.6 MG TAB PO SCH ×2 (09:00→21:52)
[2018-01-21] MEDS: PANTOPRAZOLE SOD 40 MG DELAYED RELEASE TAB PO SCH (09:00)
[2018-01-21] MEDS: LORazepam 0.5 MG TAB PO SCH ×2 (09:00→21:52)
[2018-01-21] MEDS: TAMSULOSIN HCL 0.4 MG CAP PO SCH (09:00)
--- NOTE | 2018-01-21 09:03 | HHI.PR ---
Subjective Remarks ALERT NO DISTRESS ELEVATED GLUCOSE LEVELS Objective Vital Signs Date Time Temp Pulse Resp B/P (MAP) Pulse Ox O2 Delivery O2 Flow Rate FiO2 01/21/18 07:55 95 01/21/18 04:10 97.6 107 18 128/73 (91) 96 01/21/18 04:06 96 01/21/18 00:00 Nasal Cannula 3.00 01/20/18 23:35 97.8 107 18 118/72 (87) 97 01/20/18 20:28 97 Nasal Cannula 3.00 01/20/18 20:00 Nasal Cannula 3.00 01/20/18 19:28 98.3 116 18 115/72 (86) 97 01/20/18 16:22 Nasal Cannula 3.00 01/20/18 16:00 98.1 101 23 105/71 (82) 95 01/20/18 16:00 101 01/20/18 15:00 113 01/20/18 13:45 Nasal Cannula 3.00 01/20/18 12:00 98.5 109 19 127/78 (94) 97 I/O 01/20/18 01/20/18 01/20/18 01/21/18 01/21/18 01/21/18 07:00 15:00 23:00 07:00 15:00 23:00 Intake Total 720 ml 1200 ml 1200 ml Output Total 1400 ml 475 ml Balance -680 ml 1200 ml 725 ml Intake Oral 720 ml 1200 ml 1200 ml Output Urine Total 1400 ml 475 ml # Voids 3 # Bowel Movements 1 0 Result Diagram: 01/21/1820 01/21/1820 Objective Remarks GENERAL: SKIN: Warm and dry. HEAD: Atraumatic. Normocephalic. EYES: Pupils equal and round. No scleral icterus. No injection or drainage. ENT: No nasal bleeding or discharge. Mucous membranes pink and moist. NECK: Trachea midline. No JVD. CARDIOVASCULAR: Regular rate and rhythm. RESPIRATORY: No accessory muscle use. WHEEZING BILATERALY to auscultation. Breath sounds equal bilaterally. GASTROINTESTINAL: Abdomen soft, non-tender, nondistended. Hepatic and splenic margins not palpable. MUSCULOSKELETAL: Extremities without clubbing, cyanosis, or edema. No obvious deformities. NEUROLOGICAL: Awake and alert. No obvious cranial nerve deficits. Motor grossly within normal limits. Five out of 5 muscle strength in the arms and legs. Normal speech. PSYCHIATRIC: Appropriate mood and affect; insight and judgment normal. Assessment and Plan Assessment and Plan ass: asthma exacerbation SLOWLY IMPROVING DM POORLY CONTROLLED plan O2/ as needed BRONCHODILATORS INCREASE ACTIVITY TAPER STEROIDS Mary Hernandez MD January 21, 2018 09:03
--- NOTE | 2018-01-21 10:08 | HHI.PR ---
Subjective History of Present Illness Patient still SOB/ Wheezing. Blood sugar high on Levemir to 40 units BID. Continue with metformin 1000 mg PO BID. Check Lab in AM, Discussed with patient at bed side. . Leukocytosis monitoring, have pressure ulcer at both buttock area stage 1. Review of Systems Constitutional Constitutional: Fatigue, Weakness Pulmonary Respiratory: Coughing, Shortness of Breath, Wheezing Cardiology CV Remarks edema. Integumentary Skin: Wounds Skin Remarks Pressure wound at both buttock area. Allergic/Immunologic Allergic/Immunologic: Asthma Vitals/Results Vital Signs Vital Signs Date Time Temp Pulse Resp B/P (MAP) Pulse Ox O2 Delivery O2 Flow Rate FiO2 01/21/18 08:00 100 01/21/18 08:00 98.1 103 17 109/69 (82) 96 01/21/18 08:00 Nasal Cannula 3.00 Humidified 01/21/18 07:55 95 01/21/18 04:10 97.6 107 18 128/73 (91) 96 01/21/18 04:06 96 01/21/18 00:00 Nasal Cannula 3.00 01/20/18 23:35 97.8 107 18 118/72 (87) 97 01/20/18 20:28 97 Nasal Cannula 3.00 01/20/18 20:00 Nasal Cannula 3.00 01/20/18 19:28 98.3 116 18 115/72 (86) 97 01/20/18 16:22 Nasal Cannula 3.00 01/20/18 16:00 98.1 101 23 105/71 (82) 95 01/20/18 16:00 101 01/20/18 15:00 113 01/20/18 13:45 Nasal Cannula 3.00 01/20/18 12:00 98.5 109 19 127/78 (94) 97 CBC/BMP: 01/21/18 0620 01/21/18 0620 Lab Results Laboratory Tests Test 01/21/18 06:20 White Blood Count 13.0 TH/MM3 Red Blood Count 4.61 MIL/MM3 Hemoglobin 13.4 GM/DL Hematocrit 40.1 % Mean Corpuscular Volume 87.1 FL Mean Corpuscular Hemoglobin 29.0 PG Mean Corpuscular Hemoglobin Concent 33.3 % Red Cell Distribution Width 17.6 % Platelet Count 119 TH/MM3 Mean Platelet Volume 7.9 FL Neutrophils (%) (Auto) 89.7 % Lymphocytes (%) (Auto) 5.4 % Monocytes (%) (Auto) 4.7 % Eosinophils (%) (Auto) 0.1 % Basophils (%) (Auto) 0.1 % Neutrophils # (Auto) 11.7 TH/MM3 Lymphocytes # (Auto) 0.7 TH/MM3 Monocytes # (Auto) 0.6 TH/MM3 Eosinophils # (Auto) 0.0 TH/MM3 Basophils # (Auto) 0.0 TH/MM3 CBC Comment AUTO DIFF Differential Total Cells Counted 100 Neutrophils % (Manual) 77 % Band Neutrophils % 7 % Lymphocytes % 3 % Monocytes % 8 % Neutrophils # (Manual) 11.6 TH/MM3 Myelocytes 5 % Differential Comment FINAL DIFF MANUAL Platelet Estimate LOW Platelet Morphology Comment NORMAL Red Cell Morphology Comment NORMAL Blood Urea Nitrogen 20 MG/DL Creatinine 0.66 MG/DL Random Glucose 139 MG/DL Total Protein 5.2 GM/DL Albumin 2.7 GM/DL Calcium Level 8.7 MG/DL Alkaline Phosphatase 99 U/L Aspartate Amino Transf (AST/SGOT) 22 U/L Alanine Aminotransferase (ALT/SGPT) 71 U/L Total Bilirubin 0.6 MG/DL Sodium Level 136 MEQ/L Potassium Level 3.5 MEQ/L Chloride Level 94 MEQ/L Carbon Dioxide Level 30.4 MEQ/L Anion Gap 12 MEQ/L Estimat Glomerular Filtration Rate 126 ML/MIN Physical Exam General General Appearance: Well Developed, Well Nourished, Anxious Appearance Remarks Acute respiratory distress mild. Eyes Eye Exam: Pupils Equal, Pupils Reactive, Sclera White, Extraocular Movement Intact Throat Throat Remarks Oral Thrush. Neck Neck Exam: Neck Supple, Trachea Midline Pulmonary Resp Exam: Diminished Breath Sounds, Labored Resp Remarks Bilateral wheezing and crackles. Cardiology CV Exam: Normal Sinus Rhythm, Tachycardia Gastrointestinal/Abdomen GI Exam: Soft, Non-Tender, Bowel Sounds Present, Distended Musculoskeletal MS Exam: Joints Intact Integumentary Skin Exam: Dry Skin Remarks Pressure wound at both buttock area. Extremeties Extremities Exam: Moderate Edema, Pitting Edema Neurologic Neuro Exam: Alert, Awake, Oriented, Moving All Extremities, No Focal Deficits Psychiatric Psych Exam: Appropriate Responses VTE Prophylaxis VTE Remarks Eliquis PUD Prophylasis PUD Prophylaxis: Protonix Assessment/Plan Assessment/Plan ASSESSMENT AND PLAN: This is a 52-year-old male who came to the ER, diagnosed with: 1. Acute respiratory failure secondary to chronic obstructive pulmonary disease/asthma exacerbation. on BIPAP Now critical care input noted. The patient is on DuoNeb nebulization. The patient also on Prednisone 20 mg every 12 hour. The patient is also on Symbicort inhaler, Singulair 10 mg P.O. daily. Pulmonary input noted. Further recommendation per pulmonary. 2. History of COPD/asthma. Continue home medication. 3. History of benign prostatic hypertrophy. Continue with Flomax 0.4 mg p.o. daily. 4. History of hyperlipidemia. Continue with Lipitor 40 mg p.o. daily. 5. Diabetes mellitus. ADA 1800 calorie diet. NovoLog low dose sliding scale. Check blood sugar with meals and at bedtime. Continue with Metformin 1000 mg twice a day. We will monitor blood sugar closely. on Levemir 40 units BID will monitor sugar. 6. History of deep venous thrombosis and pulmonary embolism. The patient on Eliquis 5 mg twice a day. 7. History of hypertension. Continue with diltiazem 360 mg p.o. daily. 8. Iron deficiency anemia. The patient is on ferrous sulfate 325 mg twice a day. 9. Leg edema and generalized edema. The patient is on Lasix 40 mg daily. 10. Anxiety. Continue lorazepam 0.5 mg twice a day. 11. Gastroesophageal reflux disease. Protonix 40 mg p.o. daily. 12. Depression. Continue with Paxil 20 mg p.o. daily. 13. History of oral thrush. The patient is on nystatin 5 mL 4 times a day. 14. Deep venous thrombosis prophylaxis, Eliquis 5 mg twice a day. 15. Gastrointestinal prophylaxis, Protonix 40 mg p.o. daily. 16. Renal Insufficency on Diuretic. better. 17. Leukocytosis monitoring. 18. Hypokalemia resolved. 19. Stage 1 Pressure wound at both buttock area getting treatment. 20. Leg edema on Lasix to 40 mg IV BID. Check CBC, CMP in the morning. We are going to manage the patient on a daily basis and make recommendations on daily basis. Discussed Condition with: Patient Myron Woodward MD January 21, 2018 10:08
[2018-01-21] MEDS: MONTELUKAST SODIUM 10 MG TAB PO SCH (21:51)
[2018-01-21] MEDS: ATORVASTATIN 40 MG TAB PO SCH (21:52)
[2018-01-22] VITALS (14 sets, daily range): BP systolic 116–152; BP diastolic 70–87; PULSE 79–116; RESP 16–18; TEMP 97.6–98.2; O2SAT 96–99
[2018-01-22] MEDS: RESP: ALBUTEROL 2.5 MG/IPRATROPIUM 0.5 MG NEB (SCH) NEB ×6 (05:18→23:42)
[2018-01-22 05:21] LABS: AUTOMATED NEUTROPHIL # 9.7 TH/MM3 (1.8-7.7); BASOPHIL % 0.1 % (0.0-2.0); EOSINOPHIL % 0.3 % (0.0-4.0); HEMATOCRIT 37.1 % (39.0-51.0); HEMOGLOBIN 12.7 GM/DL (13.0-17.0); LYMPH % 7.7 % (9.0-44.0); LYMPHOCYTE # 0.9 TH/MM3 (1.0-4.8); MEAN CELL VOLUME 86.8 FL (80.0-100.0); MEAN CORPUSCULAR HEMOGLOBIN 29.7 PG (27.0-34.0); MEAN CORPUSCULAR HGB CONC 34.2 % (32.0-36.0); MEAN PLATELET VOLUME 7.6 FL (7.0-11.0); MONO % 4.5 % (0.0-8.0); MONOCYTE # 0.5 TH/MM3 (0-0.9); NEUT % 87.4 % (16.0-70.0); PLATELET COUNT 122 TH/MM3 (150-450); RED BLOOD COUNT 4.27 MIL/MM3 (4.50-5.90); RED CELL DISTRIBUTION WIDTH 17.5 % (11.6-17.2); WHITE BLOOD COUNT 11.1 TH/MM3 (4.0-11.0)
[2018-01-22] MEDS: FUROSEMIDE 40 MG/4 ML VIAL IV SCH ×2 (05:38→18:09)
[2018-01-22 05:43] LABS: ALKALINE PHOSPHATASE 95 U/L (45-117); TOTAL BILIRUBIN ADULT 0.5 MG/DL (0.2-1.0); TOTAL PROTEIN 4.8 GM/DL (6.4-8.2)
[2018-01-22 05:45] LABS: ALBUMIN 2.5 GM/DL (3.4-5.0); ALT (GPT) 73 U/L (12-78); AST (GOT) 26 U/L (15-37); BICARBONATE 32.8 MEQ/L (21.0-32.0); BLOOD UREA NITROGEN 17 MG/DL (7-18); CALCIUM 8.2 MG/DL (8.5-10.1); CHLORIDE 95 MEQ/L (98-107); CREATININE 0.69 MG/DL (0.60-1.30); GLOMERULAR FILTRATION RATE 120 ML/MIN (>89); GLUCOSE,RANDOM 80 MG/DL (74-106); SODIUM (NA) 135 MEQ/L (136-145)
[2018-01-22 07:41] LABS: BANDS 7 % (0-6); LYMPHOCYTES 10 % (9-44); METAMYELOCYTES 3 % (0-1); MONOCYTES 4 % (0-8); MYELOCYTES 3 % (0-0); NEUTROPHIL # MANUAL DIFF 9.5 TH/MM3 (1.8-7.7); POLYS (SEG NEUTROPHILS) 73 % (16-70)
[2018-01-22] MEDS: INSULIN ASPART SUPPLEMENTAL SCALE SQ SCH ×4 (08:00→20:48)
[2018-01-22] MEDS: FERROUS SULFATE 325 MG (65 MG ELEMENTAL IRON) TAB PO SCH ×2 (08:45→20:39)
[2018-01-22] MEDS: BUDESONIDE-FORMOTEROL 160/4.5 MCG INHALER INH SCH ×2 (08:45→20:37)
[2018-01-22] MEDS: LORazepam 0.5 MG TAB PO SCH ×2 (08:46→20:39)
[2018-01-22] MEDS: TAMSULOSIN HCL 0.4 MG CAP PO SCH (08:46)
[2018-01-22] MEDS: DILTIAZEM-CD 180 MG CAP ER PO SCH (08:46)
[2018-01-22] MEDS: predniSONE 20 MG TAB PO SCH ×2 (08:46→20:44)
[2018-01-22] MEDS: LISINOPRIL 5 MG TAB PO SCH ×2 (08:46→20:40)
[2018-01-22] MEDS: PARoxetine HCL 20 MG TAB PO SCH (08:46)
[2018-01-22] MEDS: POTASSIUM CHLORIDE 20 MEQ CONTROLLED RELEASE TAB PO SCH ×2 (08:46→20:40)
[2018-01-22] MEDS: DOCUSATE SODIUM 50 MG/SENNA 8.6 MG TAB PO SCH ×2 (08:46→20:41)
[2018-01-22] MEDS: APIXABAN 5 MG TABLET PO SCH ×2 (08:47→20:40)
[2018-01-22] MEDS: NYSTATIN SUSP 500,000 U/5 ML CUP SWISH-SWAL SCH ×4 (08:47→20:39)
[2018-01-22] MEDS: PANTOPRAZOLE SOD 40 MG DELAYED RELEASE TAB PO SCH (08:47)
[2018-01-22] MEDS: metFORMIN HCL 500 MG TAB PO SCH ×2 (08:47→18:09)
[2018-01-22] MEDS: guaiFENesin/DEXTROMETHORPHAN 200 MG/20 MG/10 ML CUP PO SCH ×4 (08:47→20:39)
[2018-01-22] MEDS: INSULIN DETEMIR 100 UNITS/ML VIAL SQ SCH ×2 (08:47→20:53)
[2018-01-22] MEDS: SODIUM CHLORIDE 0.9% FLUSH 10 ML FLUSH IV FLUSH SCH ×2 (08:47→20:41)
--- NOTE | 2018-01-22 09:11 | HHI.PR ---
Subjective History of Present Illness Patient still SOB/ Wheezing. Diabetes mellitis on Levemir to 40 units BID. Continue with metformin 1000 mg PO BID. Check Lab in AM, Discussed with patient at bed side. . Leukocytosis monitoring, have pressure ulcer at both buttock area stage 1. Leg swelling and pain check venous doppler of lower extremities. Discharge plan home with home health care possibly tomorrow. Review of Systems Constitutional Constitutional: Fatigue, Weakness Pulmonary Respiratory: Coughing, Shortness of Breath, Wheezing Cardiology CV Remarks edema. Integumentary Skin: Wounds Skin Remarks Pressure wound at both buttock area. Allergic/Immunologic Allergic/Immunologic: Asthma Vitals/Results Vital Signs Vital Signs Date Time Temp Pulse Resp B/P (MAP) Pulse Ox O2 Delivery O2 Flow Rate FiO2 01/22/18 08:07 96 Nasal Cannula 3.00 01/22/18 06:22 97.6 93 18 119/70 (86) 96 01/22/18 05:20 97 Nasal Cannula 3.00 01/22/18 04:01 79 01/22/18 00:02 98 01/22/18 00:02 98 01/21/18 23:49 98 Nasal Cannula 3.00 01/21/18 23:19 98.3 107 18 123/63 (83) 97 01/21/18 20:20 101 01/21/18 20:12 98.1 112 18 115/68 (84) 97 01/21/18 20:00 Nasal Cannula 3.00 Humidified 01/21/18 16:00 99 01/21/18 16:00 97.9 98 17 120/70 (87) 99 01/21/18 15:25 98 Nasal Cannula 3.00 01/21/18 12:00 98.2 103 17 126/67 (86) 98 01/21/18 12:00 101 CBC/BMP: 01/22/18 0436 01/22/18 0436 Lab Results Laboratory Tests Test 01/22/18 04:36 White Blood Count 11.1 TH/MM3 Red Blood Count 4.27 MIL/MM3 Hemoglobin 12.7 GM/DL Hematocrit 37.1 % Mean Corpuscular Volume 86.8 FL Mean Corpuscular Hemoglobin 29.7 PG Mean Corpuscular Hemoglobin Concent 34.2 % Red Cell Distribution Width 17.5 % Platelet Count 122 TH/MM3 Mean Platelet Volume 7.6 FL Neutrophils (%) (Auto) 87.4 % Lymphocytes (%) (Auto) 7.7 % Monocytes (%) (Auto) 4.5 % Eosinophils (%) (Auto) 0.3 % Basophils (%) (Auto) 0.1 % Neutrophils # (Auto) 9.7 TH/MM3 Lymphocytes # (Auto) 0.9 TH/MM3 Monocytes # (Auto) 0.5 TH/MM3 Eosinophils # (Auto) 0.0 TH/MM3 Basophils # (Auto) 0.0 TH/MM3 CBC Comment AUTO DIFF Differential Total Cells Counted 100 Neutrophils % (Manual) 73 % Band Neutrophils % 7 % Lymphocytes % 10 % Monocytes % 4 % Neutrophils # (Manual) 9.5 TH/MM3 Metamyelocytes 3 % Myelocytes 3 % Differential Comment FINAL DIFF MANUAL Platelet Estimate LOW Platelet Morphology Comment NORMAL Blood Urea Nitrogen 17 MG/DL Creatinine 0.69 MG/DL Random Glucose 80 MG/DL Total Protein 4.8 GM/DL Albumin 2.5 GM/DL Calcium Level 8.2 MG/DL Alkaline Phosphatase 95 U/L Aspartate Amino Transf (AST/SGOT) 26 U/L Alanine Aminotransferase (ALT/SGPT) 73 U/L Total Bilirubin 0.5 MG/DL Sodium Level 135 MEQ/L Potassium Level 3.7 MEQ/L Chloride Level 95 MEQ/L Carbon Dioxide Level 32.8 MEQ/L Anion Gap 7 MEQ/L Estimat Glomerular Filtration Rate 120 ML/MIN Physical Exam General General Appearance: Well Developed, Well Nourished, Anxious Appearance Remarks Acute respiratory distress mild. Eyes Eye Exam: Pupils Equal, Pupils Reactive, Sclera White, Extraocular Movement Intact Throat Throat Remarks Oral Thrush. Neck Neck Exam: Neck Supple, Trachea Midline Pulmonary Resp Exam: Diminished Breath Sounds, Labored Resp Remarks Bilateral wheezing and crackles. Cardiology CV Exam: Normal Sinus Rhythm, Tachycardia Gastrointestinal/Abdomen GI Exam: Soft, Non-Tender, Bowel Sounds Present, Distended Musculoskeletal MS Exam: Joints Intact Integumentary Skin Exam: Dry Skin Remarks Pressure wound at both buttock area. Extremeties Extremities Exam: Moderate Edema, Pitting Edema Neurologic Neuro Exam: Alert, Awake, Oriented, Moving All Extremities, No Focal Deficits Psychiatric Psych Exam: Appropriate Responses VTE Prophylaxis VTE Remarks Eliquis PUD Prophylasis PUD Prophylaxis: Protonix Assessment/Plan Assessment/Plan ASSESSMENT AND PLAN: This is a 52-year-old male who came to the ER, diagnosed with: 1. Acute respiratory failure secondary to chronic obstructive pulmonary disease/asthma exacerbation. on BIPAP Now critical care input noted. The patient is on DuoNeb nebulization. The patient also on Prednisone 20 mg every 12 hour. The patient is also on Symbicort inhaler, Singulair 10 mg P.O. daily. Pulmonary input noted. Further recommendation per pulmonary. 2. History of COPD/asthma. Continue home medication. 3. History of benign prostatic hypertrophy. Continue with Flomax 0.4 mg p.o. daily. 4. History of hyperlipidemia. Continue with Lipitor 40 mg p.o. daily. 5. Diabetes mellitus. ADA 1800 calorie diet. NovoLog low dose sliding scale. Check blood sugar with meals and at bedtime. Continue with Metformin 1000 mg twice a day. We will monitor blood sugar closely. on Levemir 40 units BID will monitor sugar. 6. History of deep venous thrombosis and pulmonary embolism. The patient on Eliquis 5 mg twice a day. 7. History of hypertension. Continue with diltiazem 360 mg p.o. daily. 8. Iron deficiency anemia. The patient is on ferrous sulfate 325 mg twice a day. 9. Leg edema and generalized edema. The patient is on Lasix 40 mg daily. 10. Anxiety. Continue lorazepam 0.5 mg twice a day. 11. Gastroesophageal reflux disease. Protonix 40 mg p.o. daily. 12. Depression. Continue with Paxil 20 mg p.o. daily. 13. History of oral thrush. The patient is on nystatin 5 mL 4 times a day. 14. Deep venous thrombosis prophylaxis, Eliquis 5 mg twice a day. 15. Gastrointestinal prophylaxis, Protonix 40 mg p.o. daily. 16. Renal Insufficency on Diuretic. better. 17. Leukocytosis monitoring. 18. Hypokalemia resolved. 19. Stage 1 Pressure wound at both buttock area getting treatment. 20. Leg edema on Lasix to 40 mg IV BID. Leg swelling and pain check venous doppler of lower extremities. Check CBC, CMP in the morning. Discharge plan home with home health care possibly tomorrow. We are going to manage the patient on a daily basis and make recommendations on daily basis. Discussed Condition with: Patient Myron Woodward MD January 22, 2018 09:11
--- NOTE | 2018-01-22 09:19 | HHI.FF ---
Face to Face Verification Diagnosis: (1) CAP (community acquired pneumonia) (2) Respiratory failure, acute (3) Chronic obstructive pulmonary disease Physical Therapy Order: Evaluate and Treat, Improve ambulation, Strength and gait training Occupational Therapy Order: Evaluate and Treat, Improve ADL, Gross motor coordination Home Health Nursing Order: Medical education Signs/symptoms of disease process Diabetic education Medication education-adverse effect Wound care and dressing changes I have seen patient Philip Plaza Sr Fariba on 01/22/18. My clinical findings support the need for the requested home health care services because: Ltd mobility - disease progression Patient has SOB Deconditioned w/ increased weakness Need for psychosocial assistance I certify that my clinical findings support that this patient is homebound because: Hx COPD- exertion dyspnea/weakness Unsafe to leave home unassisted Unable to use public transportation Myron Woodward MD January 22, 2018 09:19
--- NOTE | 2018-01-22 10:25 | RADRPT ---
EXAM DATE/TIME: 01/22/2018 09:42 [facility] COMPARISON: US LEG BILATERAL VENOUS DOPPLER, January 12, 2018, 10:19. INDICATIONS : Bilateral leg edema. MEDICAL HISTORY : Myocardial infarction. Hypercholesterolemia. Deep venous thrombosis. Sinus tachycardia. Hypertension. Pulmonary embolism. COPD. Asthma. BPH. Diabetes. Disorder right kidney. Pneumonia 11/2015. SURGICAL HISTORY : Tonsillectomy.Appendectomy. Circumcision. Right hip replacement. ENCOUNTER: Initial ACUITY: 1 day PAIN SCORE: 6/10 LOCATION: Bilateral lower extremities. TECHNIQUE: Venous ultrasound of the left and right leg was performed from the inguinal ligament to the proximal calf. Real-time, color Doppler and spectral tracing, compression and augmentation techniques were us ed. FINDINGS: RIGHT LEG: There is normal compressibility of the deep venous system from the inguinal region to the proximal ca lf. No echogenic clot is seen in the lumen of the common femoral, femoral, popliteal, and posterior tibial veins. There is a normal response of the venous system to proximal and distal augmentation an d respiration. LEFT LEG: There is normal compressibility of the deep venous system from the inguinal region to the proximal ca lf. No echogenic clot is seen in the lumen of the common femoral, femoral, popliteal, and posterior tibial veins. There is a normal response of the venous system to proximal and distal augmentation an d respiration. CONCLUSION: No evidence of DVT. No significant change. Tyler Mast MD on January 22, 2018 at 10:21 Board Certified Radiologist. This report was verified electronically.
[2018-01-22] MEDS ORDERED: metroNIDAZOLE 500 MG TAB PO SCH (10:45)
--- NOTE | 2018-01-22 17:09 | HHI.PR ---
Subjective Remarks ALERT NO DISTRESS Objective Vital Signs Date Time Temp Pulse Resp B/P (MAP) Pulse Ox O2 Delivery O2 Flow Rate FiO2 01/22/18 16:02 99 Nasal Cannula 3.00 01/22/18 16:00 106 01/22/18 15:54 3.00 01/22/18 12:00 98.0 100 16 152/86 (108) 96 01/22/18 12:00 99 01/22/18 08:07 96 Nasal Cannula 3.00 01/22/18 08:00 Room Air 01/22/18 08:00 97.6 93 16 133/78 (96) 96 01/22/18 08:00 89 01/22/18 06:22 97.6 93 18 119/70 (86) 96 01/22/18 05:20 97 Nasal Cannula 3.00 01/22/18 04:01 79 01/22/18 00:02 98 01/22/18 00:02 98 01/21/18 23:49 98 Nasal Cannula 3.00 01/21/18 23:19 98.3 107 18 123/63 (83) 97 01/21/18 20:20 101 01/21/18 20:12 98.1 112 18 115/68 (84) 97 01/21/18 20:00 Nasal Cannula 3.00 Humidified I/O 01/21/18 01/21/18 01/21/18 01/22/18 01/22/18 01/22/18 07:00 15:00 23:00 07:00 15:00 23:00 Intake Total 1200 ml 1200 ml 960 ml Output Total 475 ml 1750 ml 1100 ml Balance 725 ml -550 ml -140 ml Intake Oral 1200 ml 1200 ml 960 ml Output Urine Total 475 ml 1750 ml 1100 ml # Bowel Movements 0 2 0 Result Diagram: 01/22/18 0436 01/22/18 0436 Objective Remarks GENERAL: SKIN: Warm and dry. HEAD: Atraumatic. Normocephalic. EYES: Pupils equal and round. No scleral icterus. No injection or drainage. ENT: No nasal bleeding or discharge. Mucous membranes pink and moist. NECK: Trachea midline. No JVD. CARDIOVASCULAR: Regular rate and rhythm. RESPIRATORY: No accessory muscle use. WHEEZING BILATERALY to auscultation. Breath sounds equal bilaterally. GASTROINTESTINAL: Abdomen soft, non-tender, nondistended. Hepatic and splenic margins not palpable. MUSCULOSKELETAL: Extremities without clubbing, cyanosis, or edema. No obvious deformities. NEUROLOGICAL: Awake and alert. No obvious cranial nerve deficits. Motor grossly within normal limits. Five out of 5 muscle strength in the arms and legs. Normal speech. PSYCHIATRIC: Appropriate mood and affect; insight and judgment normal. Assessment and Plan Assessment and Plan ass: asthma exacerbation SLOWLY IMPROVING plan O2/ as needed [employer] INCREASE ACTIVITY TAPER STEROIDS Mary Hernandez MD January 22, 2018 17:09
[2018-01-22] MEDS: ATORVASTATIN 40 MG TAB PO SCH (20:39)
[2018-01-22] MEDS: MONTELUKAST SODIUM 10 MG TAB PO SCH (20:40)
[2018-01-22] MEDS: metroNIDAZOLE 500 MG TAB PO SCH (22:38)
[2018-01-23] VITALS (9 sets, daily range): BP systolic 123–166; BP diastolic 65–80; PULSE 82–113; RESP 18; TEMP 97.2–97.9; O2SAT 93–98
[2018-01-23] MEDS: RESP: ALBUTEROL 2.5 MG/IPRATROPIUM 0.5 MG NEB (SCH) NEB ×3 (03:43→11:38)
[2018-01-23 05:05] LABS: BASOPHIL % 0.1 % (0.0-2.0); EOSINOPHIL % 0.3 % (0.0-4.0); HEMATOCRIT 34.7 % (39.0-51.0); HEMOGLOBIN 11.9 GM/DL (13.0-17.0); LYMPH % 6.9 % (9.0-44.0); LYMPHOCYTE # 0.8 TH/MM3 (1.0-4.8); MEAN CELL VOLUME 86.9 FL (80.0-100.0); MEAN CORPUSCULAR HEMOGLOBIN 29.7 PG (27.0-34.0); MEAN CORPUSCULAR HGB CONC 34.2 % (32.0-36.0); MEAN PLATELET VOLUME 7.6 FL (7.0-11.0); MONO % 4.4 % (0.0-8.0); MONOCYTE # 0.5 TH/MM3 (0-0.9); NEUT % 88.3 % (16.0-70.0); PLATELET COUNT 113 TH/MM3 (150-450); RED BLOOD COUNT 3.99 MIL/MM3 (4.50-5.90); RED CELL DISTRIBUTION WIDTH 17.4 % (11.6-17.2); WHITE BLOOD COUNT 11.3 TH/MM3 (4.0-11.0)
[2018-01-23 05:35] LABS: ALBUMIN 2.6 GM/DL (3.4-5.0); AST (GOT) 21 U/L (15-37); CALCIUM 8.4 MG/DL (8.5-10.1); CHLORIDE 97 MEQ/L (98-107); CREATININE 0.71 MG/DL (0.60-1.30); GLOMERULAR FILTRATION RATE 116 ML/MIN (>89); GLUCOSE,RANDOM 127 MG/DL (74-106); SODIUM (NA) 136 MEQ/L (136-145)
[2018-01-23 05:44] LABS: ALKALINE PHOSPHATASE 89 U/L (45-117); ALT (GPT) 73 U/L (12-78); BICARBONATE 30.3 MEQ/L (21.0-32.0); BLOOD UREA NITROGEN 14 MG/DL (7-18); TOTAL BILIRUBIN ADULT 0.4 MG/DL (0.2-1.0); TOTAL PROTEIN 4.8 GM/DL (6.4-8.2)
[2018-01-23] MEDS: FUROSEMIDE 40 MG/4 ML VIAL IV SCH ×2 (06:03→17:36)
[2018-01-23] MEDS: INSULIN ASPART SUPPLEMENTAL SCALE SQ SCH ×4 (08:00→21:54)
--- NOTE | 2018-01-23 08:58 | HHI.PR ---
Subjective Remarks ALERT NO DISTRESS Objective Vital Signs Date Time Temp Pulse Resp B/P (MAP) Pulse Ox O2 Delivery O2 Flow Rate FiO2 01/23/18 07:36 97 Nasal Cannula 2.00 01/23/18 04:00 82 01/23/18 03:12 97.2 82 18 129/65 (86) 93 01/23/18 01:13 94 Room Air 01/22/18 23:59 96 01/22/18 23:15 97.9 105 18 119/71 (87) 97 01/22/18 20:52 98.2 116 18 116/76 (89) 98 01/22/18 20:29 104 01/22/18 20:00 Nasal Cannula 2.00 Humidified 01/22/18 19:17 97 Nasal Cannula 2.00 01/22/18 16:02 99 Nasal Cannula 3.00 01/22/18 16:00 97.8 106 18 123/87 (99) 96 01/22/18 16:00 106 01/22/18 15:54 3.00 01/22/18 12:00 98.0 100 16 152/86 (108) 96 01/22/18 12:00 99 I/O 01/22/18 01/22/18 01/22/18 01/23/18 01/23/18 01/23/18 07:00 15:00 23:00 07:00 15:00 23:00 Intake Total 960 ml 1096 ml 480 ml Output Total 1100 ml 800 ml 400 ml Balance -140 ml 296 ml 80 ml Intake Oral 960 ml 1096 ml 480 ml Output Urine Total 1100 ml 800 ml 400 ml # Voids 2 # Bowel Movements 0 1 7 Result Diagram: 01/23/18 0354 01/23/18 0354 Objective Remarks GENERAL: SKIN: Warm and dry. HEAD: Atraumatic. Normocephalic. EYES: Pupils equal and round. No scleral icterus. No injection or drainage. ENT: No nasal bleeding or discharge. Mucous membranes pink and moist. NECK: Trachea midline. No JVD. CARDIOVASCULAR: Regular rate and rhythm. RESPIRATORY: No accessory muscle use. WHEEZING BILATERALY to auscultation. Breath sounds equal bilaterally. GASTROINTESTINAL: Abdomen soft, non-tender, nondistended. Hepatic and splenic margins not palpable. MUSCULOSKELETAL: Extremities without clubbing, cyanosis, or edema. No obvious deformities. NEUROLOGICAL: Awake and alert. No obvious cranial nerve deficits. Motor grossly within normal limits. Five out of 5 muscle strength in the arms and legs. Normal speech. PSYCHIATRIC: Appropriate mood and affect; insight and judgment normal. Assessment and Plan Assessment and Plan ass: asthma exacerbation SLOWLY IMPROVING plan O2/ as needed [employer] HOME TODAY Mary Hernandez MD January 23, 2018 08:58
[2018-01-23 08:59] LABS: BANDS 6 % (0-6); LYMPHOCYTES 8 % (9-44); MONOCYTES 5 % (0-8); MYELOCYTES 4 % (0-0); NEUTROPHIL # MANUAL DIFF 9.8 TH/MM3 (1.8-7.7); OVALOCYTES 1+ (NORMAL); POLYS (SEG NEUTROPHILS) 77 % (16-70)
[2018-01-23 09:00] LABS: TEARDROP RBCS 1+ (NORMAL)
[2018-01-23] MEDS: DOCUSATE SODIUM 50 MG/SENNA 8.6 MG TAB PO SCH ×2 (09:00→21:51)
--- NOTE | 2018-01-23 09:36 | HHI.PR ---
Subjective History of Present Illness Patient still SOB/ Wheezing. Patient have diarrhea watery checked stool for C - Diff was negative Diabetes mellitis on Levemir to 40 units BID. Continue with metformin 1000 mg PO BID. Check Lab in AM, Discussed with patient at bed side. . Leukocytosis monitoring, have pressure ulcer at both buttock area stage 1. Leg swelling and pain check venous doppler of lower extremities. Discharge plan home with home health care possibly tomorrow. Review of Systems Constitutional Constitutional: Fatigue, Weakness Pulmonary Respiratory: Coughing, Shortness of Breath, Wheezing Cardiology CV Remarks edema. Integumentary Skin: Wounds Skin Remarks Pressure wound at both buttock area. Allergic/Immunologic Allergic/Immunologic: Asthma Vitals/Results Vital Signs Vital Signs Date Time Temp Pulse Resp B/P (MAP) Pulse Ox O2 Delivery O2 Flow Rate FiO2 01/23/18 08:00 97.9 97 18 139/78 (98) 96 01/23/18 07:36 97 Nasal Cannula 2.00 01/23/18 04:00 82 01/23/18 03:12 97.2 82 18 129/65 (86) 93 01/23/18 01:13 94 Room Air 01/22/18 23:59 96 01/22/18 23:15 97.9 105 18 119/71 (87) 97 01/22/18 20:52 98.2 116 18 116/76 (89) 98 01/22/18 20:29 104 01/22/18 20:00 Nasal Cannula 2.00 Humidified 01/22/18 19:17 97 Nasal Cannula 2.00 01/22/18 16:02 99 Nasal Cannula 3.00 01/22/18 16:00 97.8 106 18 123/87 (99) 96 01/22/18 16:00 106 01/22/18 15:54 3.00 01/22/18 12:00 98.0 100 16 152/86 (108) 96 01/22/18 12:00 99 CBC/BMP: 01/23/18 0354 01/23/18 0354 Lab Results Laboratory Tests Test 01/22/18 22:59 01/23/18 03:54 Stool C. difficile Toxin (PCR) NEGATIVE Stl C. difficile Toxin Epiderm 027 PRESUMPTIVE NEGATIVE White Blood Count 11.3 TH/MM3 Red Blood Count 3.99 MIL/MM3 Hemoglobin 11.9 GM/DL Hematocrit 34.7 % Mean Corpuscular Volume 86.9 FL Mean Corpuscular Hemoglobin 29.7 PG Mean Corpuscular Hemoglobin Concent 34.2 % Red Cell Distribution Width 17.4 % Platelet Count 113 TH/MM3 Mean Platelet Volume 7.6 FL Neutrophils (%) (Auto) 88.3 % Lymphocytes (%) (Auto) 6.9 % Monocytes (%) (Auto) 4.4 % Eosinophils (%) (Auto) 0.3 % Basophils (%) (Auto) 0.1 % Neutrophils # (Auto) 10.0 TH/MM3 Lymphocytes # (Auto) 0.8 TH/MM3 Monocytes # (Auto) 0.5 TH/MM3 Eosinophils # (Auto) 0.0 TH/MM3 Basophils # (Auto) 0.0 TH/MM3 CBC Comment AUTO DIFF Differential Total Cells Counted 100 Neutrophils % (Manual) 77 % Band Neutrophils % 6 % Lymphocytes % 8 % Monocytes % 5 % Neutrophils # (Manual) 9.8 TH/MM3 Myelocytes 4 % Differential Comment FINAL DIFF MANUAL Platelet Estimate LOW Platelet Morphology Comment NORMAL Tear Drop Cells 1+ Ovalocytes 1+ Blood Urea Nitrogen 14 MG/DL Creatinine 0.71 MG/DL Random Glucose 127 MG/DL Total Protein 4.8 GM/DL Albumin 2.6 GM/DL Calcium Level 8.4 MG/DL Alkaline Phosphatase 89 U/L Aspartate Amino Transf (AST/SGOT) 21 U/L Alanine Aminotransferase (ALT/SGPT) 73 U/L Total Bilirubin 0.4 MG/DL Sodium Level 136 MEQ/L Potassium Level 3.6 MEQ/L Chloride Level 97 MEQ/L Carbon Dioxide Level 30.3 MEQ/L Anion Gap 9 MEQ/L Estimat Glomerular Filtration Rate 116 ML/MIN Microbiology Microbiology 01/22/18 Acid Fast Stain, Received Pending 01/22/18 Mycobacterial Culture, Received Pending Physical Exam General General Appearance: Well Developed, Well Nourished, Anxious Appearance Remarks Acute respiratory distress mild. Eyes Eye Exam: Pupils Equal, Pupils Reactive, Sclera White, Extraocular Movement Intact Throat Throat Remarks Oral Thrush. Neck Neck Exam: Neck Supple, Trachea Midline Pulmonary Resp Exam: Diminished Breath Sounds, Labored Resp Remarks Bilateral wheezing and crackles. Cardiology CV Exam: Normal Sinus Rhythm, Tachycardia Gastrointestinal/Abdomen GI Exam: Soft, Non-Tender, Bowel Sounds Present, Distended Musculoskeletal MS Exam: Joints Intact Integumentary Skin Exam: Dry Skin Remarks Pressure wound at both buttock area. Extremeties Extremities Exam: Moderate Edema, Pitting Edema Neurologic Neuro Exam: Alert, Awake, Oriented, Moving All Extremities, No Focal Deficits Psychiatric Psych Exam: Appropriate Responses VTE Prophylaxis VTE Remarks Eliquis PUD Prophylasis PUD Prophylaxis: Protonix Assessment/Plan Assessment/Plan ASSESSMENT AND PLAN: This is a 52-year-old male who came to the ER, diagnosed with: 1. Acute respiratory failure secondary to chronic obstructive pulmonary disease/asthma exacerbation. on BIPAP Now critical care input noted. The patient is on DuoNeb nebulization. The patient also on Prednisone 20 mg every 12 hour. The patient is also on Symbicort inhaler, Singulair 10 mg P.O. daily. Pulmonary input noted. Further recommendation per pulmonary. 2. History of COPD/asthma. Continue home medication. 3. History of benign prostatic hypertrophy. Continue with Flomax 0.4 mg p.o. daily. 4. History of hyperlipidemia. Continue with Lipitor 40 mg p.o. daily. 5. Diabetes mellitus. ADA 1800 calorie diet. NovoLog low dose sliding scale. Check blood sugar with meals and at bedtime. Continue with Metformin 1000 mg twice a day. We will monitor blood sugar closely. on Levemir 40 units BID will monitor sugar. 6. History of deep venous thrombosis and pulmonary embolism. The patient on Eliquis 5 mg twice a day. 7. History of hypertension. Continue with diltiazem 360 mg p.o. daily. 8. Iron deficiency anemia. The patient is on ferrous sulfate 325 mg twice a day. 9. Leg edema and generalized edema. The patient is on Lasix 40 mg daily. 10. Anxiety. Continue lorazepam 0.5 mg twice a day. 11. Gastroesophageal reflux disease. Protonix 40 mg p.o. daily. 12. Depression. Continue with Paxil 20 mg p.o. daily. 13. History of oral thrush. The patient is on nystatin 5 mL 4 times a day. 14. Deep venous thrombosis prophylaxis, Eliquis 5 mg twice a day. 15. Gastrointestinal prophylaxis, Protonix 40 mg p.o. daily. 16. Renal Insufficency on Diuretic. better. 17. Leukocytosis monitoring. 18. Hypokalemia resolved. 19. Stage 1 Pressure wound at both buttock area getting treatment. 20. Leg edema on Lasix to 40 mg IV BID. Leg swelling and pain check venous doppler of lower extremities. 21. Diarrhea watery checked stool for C- Diff was negative Check CBC, CMP in the morning. Discharge plan home with home health care possibly tomorrow. We are going to manage the patient on a daily basis and make recommendations on daily basis. Discussed Condition with: Patient Myron Woodward MD January 23, 2018 09:36
[2018-01-23] MEDS: guaiFENesin/DEXTROMETHORPHAN 200 MG/20 MG/10 ML CUP PO SCH ×4 (09:49→21:52)
[2018-01-23] MEDS: NYSTATIN SUSP 500,000 U/5 ML CUP SWISH-SWAL SCH ×4 (09:49→21:52)
[2018-01-23] MEDS: PANTOPRAZOLE SOD 40 MG DELAYED RELEASE TAB PO SCH (09:50)
[2018-01-23] MEDS: FERROUS SULFATE 325 MG (65 MG ELEMENTAL IRON) TAB PO SCH ×2 (09:50→21:51)
[2018-01-23] MEDS: metFORMIN HCL 500 MG TAB PO SCH ×2 (09:50→17:37)
[2018-01-23] MEDS: POTASSIUM CHLORIDE 20 MEQ CONTROLLED RELEASE TAB PO SCH ×2 (09:50→21:51)
[2018-01-23] MEDS: APIXABAN 5 MG TABLET PO SCH ×2 (09:50→21:52)
[2018-01-23] MEDS: predniSONE 20 MG TAB PO SCH ×2 (09:50→21:52)
[2018-01-23] MEDS: TAMSULOSIN HCL 0.4 MG CAP PO SCH (09:50)
[2018-01-23] MEDS: LISINOPRIL 5 MG TAB PO SCH ×2 (09:50→21:51)
[2018-01-23] MEDS: metroNIDAZOLE 500 MG TAB PO SCH ×3 (09:51→17:37)
[2018-01-23] MEDS: BUDESONIDE-FORMOTEROL 160/4.5 MCG INHALER INH SCH ×2 (09:51→21:51)
[2018-01-23] MEDS: DILTIAZEM-CD 180 MG CAP ER PO SCH (09:51)
[2018-01-23] MEDS: PARoxetine HCL 20 MG TAB PO SCH (09:51)
[2018-01-23] MEDS: INSULIN DETEMIR 100 UNITS/ML VIAL SQ SCH ×2 (09:51→21:55)
[2018-01-23] MEDS: LORazepam 0.5 MG TAB PO SCH ×2 (09:51→21:51)
[2018-01-23] MEDS: SODIUM CHLORIDE 0.9% FLUSH 10 ML FLUSH IV FLUSH SCH ×2 (09:51→21:55)
[2018-01-23] MEDS: RESP: ALBUTEROL 2.5 MG/3 ML NEB (PRN) INH (19:58)
[2018-01-23] MEDS: MONTELUKAST SODIUM 10 MG TAB PO SCH (21:51)
[2018-01-23] MEDS: ATORVASTATIN 40 MG TAB PO SCH (21:52)
[2018-01-24] VITALS (8 sets, daily range): BP systolic 127–144; BP diastolic 76–92; PULSE 92–127; RESP 16–18; TEMP 97.5–98.3; O2SAT 95–98
[2018-01-24] MEDS: RESP: ALBUTEROL 2.5 MG/3 ML NEB (PRN) INH ×4 (04:27→19:45)
[2018-01-24] MEDS: FUROSEMIDE 40 MG/4 ML VIAL IV SCH ×2 (05:20→18:13)
[2018-01-24 07:17] LABS: AUTOMATED NEUTROPHIL # 11.2 TH/MM3 (1.8-7.7); BASOPHIL % 0.2 % (0.0-2.0); EOSINOPHIL % 0.2 % (0.0-4.0); HEMATOCRIT 39.2 % (39.0-51.0); HEMOGLOBIN 13.2 GM/DL (13.0-17.0); LYMPHOCYTE # 0.8 TH/MM3 (1.0-4.8); MEAN CELL VOLUME 87.7 FL (80.0-100.0); MEAN CORPUSCULAR HEMOGLOBIN 29.5 PG (27.0-34.0); MEAN CORPUSCULAR HGB CONC 33.7 % (32.0-36.0); MEAN PLATELET VOLUME 7.3 FL (7.0-11.0); MONO % 4.6 % (0.0-8.0); MONOCYTE # 0.6 TH/MM3 (0-0.9); PLATELET COUNT 141 TH/MM3 (150-450); RED BLOOD COUNT 4.47 MIL/MM3 (4.50-5.90); RED CELL DISTRIBUTION WIDTH 18.1 % (11.6-17.2); WHITE BLOOD COUNT 12.6 TH/MM3 (4.0-11.0)
[2018-01-24 07:51] LABS: ALBUMIN 3.2 GM/DL (3.4-5.0); ALKALINE PHOSPHATASE 120 U/L (45-117); ALT (GPT) 90 U/L (12-78); AST (GOT) 26 U/L (15-37); BICARBONATE 28.9 MEQ/L (21.0-32.0); BLOOD UREA NITROGEN 14 MG/DL (7-18); CALCIUM 8.4 MG/DL (8.5-10.1); CHLORIDE 97 MEQ/L (98-107); CREATININE 0.81 MG/DL (0.60-1.30); GLOMERULAR FILTRATION RATE 100 ML/MIN (>89); GLUCOSE,RANDOM 183 MG/DL (74-106); SODIUM (NA) 137 MEQ/L (136-145); TOTAL BILIRUBIN ADULT 0.4 MG/DL (0.2-1.0)
[2018-01-24] MEDS: INSULIN ASPART SUPPLEMENTAL SCALE SQ SCH ×4 (08:00→20:38)
[2018-01-24] MEDS: LORazepam 0.5 MG TAB PO SCH ×2 (08:57→20:37)
[2018-01-24] MEDS: FERROUS SULFATE 325 MG (65 MG ELEMENTAL IRON) TAB PO SCH ×2 (08:57→20:37)
[2018-01-24] MEDS: TAMSULOSIN HCL 0.4 MG CAP PO SCH (08:57)
[2018-01-24] MEDS: APIXABAN 5 MG TABLET PO SCH ×2 (08:57→20:36)
[2018-01-24] MEDS: PARoxetine HCL 20 MG TAB PO SCH (08:58)
[2018-01-24] MEDS: metroNIDAZOLE 500 MG TAB PO SCH (08:58)
[2018-01-24] MEDS: PANTOPRAZOLE SOD 40 MG DELAYED RELEASE TAB PO SCH (08:58)
[2018-01-24] MEDS: NYSTATIN SUSP 500,000 U/5 ML CUP SWISH-SWAL SCH ×4 (08:58→20:38)
[2018-01-24] MEDS: POTASSIUM CHLORIDE 20 MEQ CONTROLLED RELEASE TAB PO SCH ×2 (08:58→20:37)
[2018-01-24] MEDS: metFORMIN HCL 500 MG TAB PO SCH ×2 (08:58→18:12)
[2018-01-24] MEDS: LISINOPRIL 5 MG TAB PO SCH ×2 (08:58→20:36)
[2018-01-24] MEDS: DOCUSATE SODIUM 50 MG/SENNA 8.6 MG TAB PO SCH ×2 (08:58→20:37)
[2018-01-24] MEDS: predniSONE 20 MG TAB PO SCH (08:58)
[2018-01-24] MEDS: guaiFENesin/DEXTROMETHORPHAN 200 MG/20 MG/10 ML CUP PO SCH ×4 (08:58→20:37)
[2018-01-24] MEDS: DILTIAZEM-CD 180 MG CAP ER PO SCH (08:58)
[2018-01-24] MEDS: SODIUM CHLORIDE 0.9% FLUSH 10 ML FLUSH IV FLUSH SCH ×2 (08:59→20:36)
[2018-01-24] MEDS: BUDESONIDE-FORMOTEROL 160/4.5 MCG INHALER INH SCH ×2 (08:59→20:35)
[2018-01-24] MEDS: INSULIN DETEMIR 100 UNITS/ML VIAL SQ SCH ×2 (09:09→20:38)
--- NOTE | 2018-01-24 10:06 | RADRPT ---
EXAM DATE/TIME: 01/24/2018 09:40 [facility] COMPARISON: No previous studies available for comparison. INDICATIONS : Abdominal distention MEDICAL HISTORY : Myocardial infarction. Hypercholesterolemia. Deep venous thrombosis. Sinus tachycardia. Hypertension. Pulmonary embolism. COPD. Asthma. BPH. Diabetes. Disorder rightkidney. Pneumonia 11/2015. SURGICAL HISTORY : Tonsillectomy.Appendectomy. Circumcision. Right hip replacement. ENCOUNTER: Initial ACUITY: 3 days PAIN SCORE: 6/10 LOCATION: Abdomen FINDINGS: Supine and upright views of the abdomen stopped no dilated loops of small or large bowel. Moderate a mount of stool is seen throughout the right and transverse colon. The visualized lower lungs are slava ar. Right total hip arthroplasty. CONCLUSION: Constipation. No dilated loops of small bowel. Adriel Thompson MD on January 24, 2018 at 10:04 Board Certified Radiologist. This report was verified electronically.
[2018-01-24 10:32] LABS: BANDS 6 % (0-6); LYMPHOCYTES 4 % (9-44); METAMYELOCYTES 2 % (0-1); MONOCYTES 3 % (0-8); MYELOCYTES 8 % (0-0); NEUTROPHIL # MANUAL DIFF 11.7 TH/MM3 (1.8-7.7); POLYS (SEG NEUTROPHILS) 77 % (16-70)
--- NOTE | 2018-01-24 10:48 | HHI.PR ---
Subjective History of Present Illness Patient still SOB/ Wheezing. Diarrhea watery much better checked stool for C- Diff was negative Diabetes mellitis on Levemir to 30 units BID. Continue with metformin 1000 mg PO BID. Check Lab in AM, Discussed with patient at bed side. . Leukocytosis monitoring, have pressure ulcer at both buttock area stage 1. Review of Systems Constitutional Constitutional: Fatigue, Weakness Pulmonary Respiratory: Coughing, Shortness of Breath, Wheezing Cardiology CV Remarks edema. Integumentary Skin: Wounds Skin Remarks Pressure wound at both buttock area. Allergic/Immunologic Allergic/Immunologic: Asthma Vitals/Results Vital Signs Vital Signs Date Time Temp Pulse Resp B/P (MAP) Pulse Ox O2 Delivery O2 Flow Rate FiO2 01/24/18 09:05 97 21 01/24/18 08:00 97.5 101 16 144/82 (102) 95 01/24/18 05:57 95 01/24/18 04:00 Room Air 01/24/18 03:25 97.8 106 18 139/84 (102) 96 01/24/18 00:00 Room Air 01/23/18 23:05 97.8 106 18 166/72 (103) 95 01/23/18 22:00 Room Air 01/23/18 20:00 97 21 01/23/18 19:30 97.8 113 18 123/80 (94) 96 01/23/18 18:15 Room Air 01/23/18 16:00 97.6 96 18 130/75 (93) 98 01/23/18 12:00 103 01/23/18 12:00 97.9 103 18 125/69 (87) 98 01/23/18 11:47 Nasal Cannula 2.00 Humidified CBC/BMP: 01/24/18 0627 01/24/18 0627 Lab Results Laboratory Tests Test 01/24/18 06:27 White Blood Count 12.6 TH/MM3 Red Blood Count 4.47 MIL/MM3 Hemoglobin 13.2 GM/DL Hematocrit 39.2 % Mean Corpuscular Volume 87.7 FL Mean Corpuscular Hemoglobin 29.5 PG Mean Corpuscular Hemoglobin Concent 33.7 % Red Cell Distribution Width 18.1 % Platelet Count 141 TH/MM3 Mean Platelet Volume 7.3 FL Neutrophils (%) (Auto) 89.0 % Lymphocytes (%) (Auto) 6.0 % Monocytes (%) (Auto) 4.6 % Eosinophils (%) (Auto) 0.2 % Basophils (%) (Auto) 0.2 % Neutrophils # (Auto) 11.2 TH/MM3 Lymphocytes # (Auto) 0.8 TH/MM3 Monocytes # (Auto) 0.6 TH/MM3 Eosinophils # (Auto) 0.0 TH/MM3 Basophils # (Auto) 0.0 TH/MM3 CBC Comment AUTO DIFF Differential Total Cells Counted 100 Neutrophils % (Manual) 77 % Band Neutrophils % 6 % Lymphocytes % 4 % Monocytes % 3 % Neutrophils # (Manual) 11.7 TH/MM3 Metamyelocytes 2 % Myelocytes 8 % Differential Comment FINAL DIFF MANUAL Platelet Estimate LOW Platelet Morphology Comment NORMAL Red Cell Morphology Comment NORMAL Blood Urea Nitrogen 14 MG/DL Creatinine 0.81 MG/DL Random Glucose 183 MG/DL Total Protein 6.0 GM/DL Albumin 3.2 GM/DL Calcium Level 8.4 MG/DL Alkaline Phosphatase 120 U/L Aspartate Amino Transf (AST/SGOT) 26 U/L Alanine Aminotransferase (ALT/SGPT) 90 U/L Total Bilirubin 0.4 MG/DL Sodium Level 137 MEQ/L Potassium Level 3.6 MEQ/L Chloride Level 97 MEQ/L Carbon Dioxide Level 28.9 MEQ/L Anion Gap 11 MEQ/L Estimat Glomerular Filtration Rate 100 ML/MIN Physical Exam General General Appearance: Well Developed, Well Nourished, Anxious Appearance Remarks Acute respiratory distress mild. Eyes Eye Exam: Pupils Equal, Pupils Reactive, Sclera White, Extraocular Movement Intact Throat Throat Remarks Oral Thrush. Neck Neck Exam: Neck Supple, Trachea Midline Pulmonary Resp Exam: Diminished Breath Sounds, Labored Resp Remarks Bilateral wheezing and crackles. Cardiology CV Exam: Normal Sinus Rhythm, Tachycardia Gastrointestinal/Abdomen GI Exam: Soft, Non-Tender, Bowel Sounds Present, Distended Musculoskeletal MS Exam: Joints Intact Integumentary Skin Exam: Dry Skin Remarks Pressure wound at both buttock area. Extremeties Extremities Exam: Moderate Edema, Pitting Edema Neurologic Neuro Exam: Alert, Awake, Oriented, Moving All Extremities, No Focal Deficits Psychiatric Psych Exam: Appropriate Responses VTE Prophylaxis VTE Remarks Eliquis PUD Prophylasis PUD Prophylaxis: Protonix Assessment/Plan Assessment/Plan ASSESSMENT AND PLAN: This is a 52-year-old male who came to the ER, diagnosed with: 1. Acute respiratory failure secondary to chronic obstructive pulmonary disease/asthma exacerbation. on BIPAP Now critical care input noted. The patient is on DuoNeb nebulization. The patient also on Prednisone 20 mg every 12 hour. The patient is also on Symbicort inhaler, Singulair 10 mg P.O. daily. Pulmonary input noted. Further recommendation per pulmonary. 2. History of COPD/asthma. Continue home medication. 3. History of benign prostatic hypertrophy. Continue with Flomax 0.4 mg p.o. daily. 4. History of hyperlipidemia. Continue with Lipitor 40 mg p.o. daily. 5. Diabetes mellitus. ADA 1800 calorie diet. NovoLog low dose sliding scale. Check blood sugar with meals and at bedtime. Continue with Metformin 1000 mg twice a day. We will monitor blood sugar closely. on Levemir 40 units BID will monitor sugar. 6. History of deep venous thrombosis and pulmonary embolism. The patient on Eliquis 5 mg twice a day. 7. History of hypertension. Continue with diltiazem 360 mg p.o. daily. 8. Iron deficiency anemia. The patient is on ferrous sulfate 325 mg twice a day. 9. Leg edema and generalized edema. The patient is on Lasix 40 mg daily. 10. Anxiety. Continue lorazepam 0.5 mg twice a day. 11. Gastroesophageal reflux disease. Protonix 40 mg p.o. daily. 12. Depression. Continue with Paxil 20 mg p.o. daily. 13. History of oral thrush. The patient is on nystatin 5 mL 4 times a day. 14. Deep venous thrombosis prophylaxis, Eliquis 5 mg twice a day. 15. Gastrointestinal prophylaxis, Protonix 40 mg p.o. daily. 16. Renal Insufficency on Diuretic. better. 17. Leukocytosis monitoring. 18. Hypokalemia resolved. 19. Stage 1 Pressure wound at both buttock area getting treatment. 20. Leg edema on Lasix to 40 mg IV BID. Leg swelling and pain checked venous doppler of lower extremities... negative for DVT. 21. Diarrhea watery checked stool for C- Diff was negative ..better now. Check CBC, CMP in the morning. Discharge plan home with home health care possibly tomorrow. We are going to manage the patient on a daily basis and make recommendations on daily basis. Discussed Condition with: Patient Myron Woodward MD January 24, 2018 10:48
--- NOTE | 2018-01-24 11:35 | PD.CONS ---
HPI History of Present Illness This is a 52 year old M who is on day 24 of hospital admission for acute respiratory failure secondary to COPD and asthma exacerbation. Our service has been consulted to evaluate patient for reports of abdominal distention and diarrhea. Pt states his abdomen has been distended for the past three years, he denies any recent noticeable changes in the size but states his doctor told him that it seems to be more distended recently. Pt also complaining of diarrhea, has only had watery BMs for the past few days but states he did notice some stool in his BM this morning. Denies blood in stool. States that at home he has chronic issues with constipation and has to take Miralax every other day to keep him regular. Denies abdominal pain, unintentional weight loss. Also complaining of chronic intermittent nausea, states this has been for the past three years as well, denies emesis. He is unsure if he has family history significant for colon cancer but states his mother just had her colon removed and now has an ileostomy but he is unsure why. Denies ETOH, smoking. Pt previously seen by our service in November, had EGD and colonoscopy. EGD revealed Normal duodenum, gastritis in the antrum, esophagitis in the distal esophagus, and hiatal hernia. Pathology revealed (gastric antrum) features suggestive of chemical gastropathy (gastroesophageal mucosal biopsy) extensive intestinal metaplasia, negative for dysplasia. Colonoscopy revealed diverticulosis in the sigmoid and descending colon, diminutive polyp hepatic flexure, semisolid stool throughout the colon, internal hemorrhoids. Pathology revealed adenomatous polyp. (Lillian Bradford) PFSH Past Medical History COPD R leg DVT History of PE Anxiety GERD BPH Depression Asthma Past Surgical History Colonoscopy EGD Cataract surgery Appendectomy Bilateral hip surgery and hip replacement Tonsillectomy (Lillian Bradford) Coded Allergies: doxycycline (Unverified Allergy, Severe, throat swells, 12/15/17) minocycline (Unverified Allergy, Severe, throat swells, 12/15/17) tetracycline (Verified Allergy, Severe, Anaphylaxis, 12/15/17) tigecycline (Unverified Allergy, Severe, throat swells, 12/15/17) meperidine (Unverified Allergy, Intermediate, hallucinations, 12/15/17) Social History Denies ETOH, smoking (Lillian Bradford) Review of Systems Gastrointestinal: COMPLAINS OF: Constipation, Diarrhea, Nausea, Swelling of Abdomen, Heartburn, DENIES: Abdominal pain, Black stools, Bloody stools, Vomiting, Hematemesis (Lillian Bradford) GI Exam Vitals I&O Vital Signs Date Time Temp Pulse Resp B/P (MAP) Pulse Ox O2 Delivery O2 Flow Rate FiO2 01/24/18 09:05 97 21 01/24/18 08:00 97.5 101 16 144/82 (102) 95 01/24/18 08:00 Room Air 01/24/18 05:57 95 01/24/18 04:00 Room Air 01/24/18 03:25 97.8 106 18 139/84 (102) 96 01/24/18 00:00 Room Air 01/23/18 23:05 97.8 106 18 166/72 (103) 95 01/23/18 22:00 Room Air 01/23/18 20:00 97 21 01/23/18 19:30 97.8 113 18 123/80 (94) 96 01/23/18 18:15 Room Air 01/23/18 16:00 97.6 96 18 130/75 (93) 98 01/23/18 12:00 103 01/23/18 12:00 97.9 103 18 125/69 (87) 98 01/23/18 11:47 Nasal Cannula 2.00 Humidified I/O 01/23/18 01/23/18 01/23/18 01/24/18 01/24/18 01/24/18 07:00 15:00 23:00 07:00 15:00 23:00 Intake Total 480 ml 960 ml 960 ml Output Total 400 ml 850 ml Balance 80 ml 960 ml 110 ml Intake Oral 480 ml 960 ml 960 ml Output Urine Total 400 ml 850 ml # Voids 2 6 # Bowel Movements 7 5 1 Imaging Last Impressions Abdomen X-Ray 01/24/18 0000 Signed Impressions: Service Date/Time: Wednesday, January 24, 2018 09:40 - CONCLUSION: Constipation. No dilated loops of small bowel. Adrile Thompson MD Lower Extremity Ultrasound 01/22/18 0000 Signed Impressions: Service Date/Time: January 09:42 - CONCLUSION: No evidence of DVT. No significant change. Tyler Mast MD Chest X-Ray 01/11/18 0000 Signed Impressions: Service Date/Time: Thursday, January 11, 2018 12:30 - CONCLUSION: No acute cardiopulmonary abnormality is identified. Adin Cheema MD Laboratory Test 01/24/18 06:27 White Blood Count 12.6 TH/MM3 Red Blood Count 4.47 MIL/MM3 Hemoglobin 13.2 GM/DL Hematocrit 39.2 % Mean Corpuscular Volume 87.7 FL Mean Corpuscular Hemoglobin 29.5 PG Mean Corpuscular Hemoglobin Concent 33.7 % Red Cell Distribution Width 18.1 % Platelet Count 141 TH/MM3 Mean Platelet Volume 7.3 FL Neutrophils (%) (Auto) 89.0 % Lymphocytes (%) (Auto) 6.0 % Monocytes (%) (Auto) 4.6 % Eosinophils (%) (Auto) 0.2 % Basophils (%) (Auto) 0.2 % Neutrophils # (Auto) 11.2 TH/MM3 Lymphocytes # (Auto) 0.8 TH/MM3 Monocytes # (Auto) 0.6 TH/MM3 Eosinophils # (Auto) 0.0 TH/MM3 Basophils # (Auto) 0.0 TH/MM3 CBC Comment AUTO DIFF Differential Total Cells Counted 100 Neutrophils % (Manual) 77 % Band Neutrophils % 6 % Lymphocytes % 4 % Monocytes % 3 % Neutrophils # (Manual) 11.7 TH/MM3 Metamyelocytes 2 % Myelocytes 8 % Differential Comment FINAL DIFF MANUAL Platelet Estimate LOW Platelet Morphology Comment NORMAL Red Cell Morphology Comment NORMAL Blood Urea Nitrogen 14 MG/DL Creatinine 0.81 MG/DL Random Glucose 183 MG/DL Total Protein 6.0 GM/DL Albumin 3.2 GM/DL Calcium Level 8.4 MG/DL Alkaline Phosphatase 120 U/L Aspartate Amino Transf (AST/SGOT) 26 U/L Alanine Aminotransferase (ALT/SGPT) 90 U/L Total Bilirubin 0.4 MG/DL Sodium Level 137 MEQ/L Potassium Level 3.6 MEQ/L Chloride Level 97 MEQ/L Carbon Dioxide Level 28.9 MEQ/L Anion Gap 11 MEQ/L Estimat Glomerular Filtration Rate 100 ML/MIN Date/Time Source Procedure Growth Status 12/31/17 09:00 Blood Peripheral Aerobic Blood Culture - Final NO GROWTH IN 5 DAYS Complete 12/31/17 09:00 Blood Peripheral Anaerobic Blood Culture - Final NO GROWTH IN 5 DAYS Complete 12/31/17 09:30 Nasal Aspirate Influenza Types A,B Antigen (STEFFANIE) - Final NEGATIVE FOR FLU A AND B ANTIGEN.... Complete Physical Examination HEENT: Normocephalic; atraumatic CHEST: Even/unlabored CARDIAC: RRR ABDOMEN: Distended, soft, nontender, bowel sounds active SKIN: Normal; no rash; no jaundice. 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 (Lillian Bradford) Assessment and Plan Plan Assessment: - Diarrhea- pt states watery BMs for the past few days C. Diff stool negative. Normally has chronic constipation takes Miralax at home every other day. Abdomen flat & upright (01/24) --> Constipation. No dilated loops of small bowel. Colonoscopy (11/2016) revealed diverticulosis in the sigmoid and descending colon, diminutive polyp hepatic flexure, semisolid stool throughout the colon, internal hemorrhoids. Pathology revealed adenomatous polyp. - Abdominal swelling- pt reports this has been chronic for 3 years, denies any recent change in abdomen size but states the doctor has told him it seems to be increasing EGD (11/2016) revealed Normal duodenum, gastritis in the antrum, esophagitis in the distal esophagus, and hiatal hernia. Pathology revealed (gastric antrum) features suggestive of chemical gastropathy (gastroesophageal mucosal biopsy) extensive intestinal metaplasia, negative for dysplasia. - Mother had her colon removed recently with ileostomy, he is unsure the indication or if this was due to colon cancer - Elevated ALT- Currently AST-26 ALT-90 Alk phos-120 T bili-0.4 Previously worked up for elevated LFTs and noted to be possible secondary to medication vs fatty liver Previous BASILIO: Ceruloplasmin-18 C6E-238 Iron-10 TIBC-378 %sat-2.6 Ferritin-62 Hepatitis panel negative (2016) JOHAN, AMA, ASMA, celiac panel negative - History of DVT and PE- on Eliquis - COPD/asthma exacerbation- has been hospitalized for 24 days Plan: Possible diarrhea pt is explaining is stool seeping around the mentioned constipation on abdomen x-ray Recommend Mag Citrate x 1 CT abdomen and pelvis W IV contrast Monitor LFTs Avoid hepatotoxins Further recommendations based on clinical course Pt has been seen and examined by myself and Dr. Street and this note is written on her behalf (Lillian Bradford) Physician Comments seen, examined agree with above (Ashley Street MD) Lillian Bradford January 24, 2018 11:[address] MD January 24, 2018 15:14
[2018-01-24] MEDS ORDERED: MAGNESIUM CITRATE SOLN 300 ML BTL PO ONE (11:45)
--- NOTE | 2018-01-24 18:10 | HHI.PR ---
Subjective Remarks ALERT NO DISTRESS Objective Vital Signs Date Time Temp Pulse Resp B/P (MAP) Pulse Ox O2 Delivery O2 Flow Rate FiO2 01/24/18 16:00 97.9 106 17 127/76 (93) 97 01/24/18 12:00 Room Air 01/24/18 12:00 97.9 96 17 141/79 (99) 95 01/24/18 12:00 92 01/24/18 09:05 97 21 01/24/18 08:00 97.5 101 16 144/82 (102) 95 01/24/18 08:00 110 01/24/18 08:00 Room Air 01/24/18 05:57 95 01/24/18 04:00 Room Air 01/24/18 03:25 97.8 106 18 139/84 (102) 96 01/24/18 00:00 Room Air 01/23/18 23:05 97.8 106 18 166/72 (103) 95 01/23/18 22:00 Room Air 01/23/18 20:00 97 21 01/23/18 19:30 97.8 113 18 123/80 (94) 96 01/23/18 18:15 Room Air I/O 01/23/18 01/23/18 01/23/18 01/24/18 01/24/18 01/24/18 07:00 15:00 23:00 07:00 15:00 23:00 Intake Total 480 ml 960 ml 960 ml Output Total 400 ml 850 ml Balance 80 ml 960 ml 110 ml Intake Oral 480 ml 960 ml 960 ml Output Urine Total 400 ml 850 ml # Voids 2 6 # Bowel Movements 7 5 1 Result Diagram: 01/24/1827 01/24/18626 Objective Remarks GENERAL: SKIN: Warm and dry. HEAD: Atraumatic. Normocephalic. EYES: Pupils equal and round. No scleral icterus. No injection or drainage. ENT: No nasal bleeding or discharge. Mucous membranes pink and moist. NECK: Trachea midline. No JVD. CARDIOVASCULAR: Regular rate and rhythm. RESPIRATORY: No accessory muscle use. WHEEZING BILATERALY to auscultation. Breath sounds equal bilaterally. GASTROINTESTINAL: Abdomen soft, non-tender, nondistended. Hepatic and splenic margins not palpable. MUSCULOSKELETAL: Extremities without clubbing, cyanosis, or edema. No obvious deformities. NEUROLOGICAL: Awake and alert. No obvious cranial nerve deficits. Motor grossly within normal limits. Five out of 5 muscle strength in the arms and legs. Normal speech. PSYCHIATRIC: Appropriate mood and affect; insight and judgment normal. Assessment and Plan Assessment and Plan ass: asthma exacerbation DM SLOWLY IMPROVING GI EVALUATION NOTED plan O2/ as needed BRONCHODILATORS INCREASE ACTIVITY Mary Hernandez MD January 24, 2018 18:10
--- NOTE | 2018-01-24 19:02 | RADRPT ---
EXAM DATE/TIME: 01/24/2018 18:41 [facility] COMPARISON: CT ABDOMEN & PELVIS W CONTRAST, February 16, 2017, 0:25. INDICATIONS : Distention. IV CONTRAST: 95 cc Omnipaque 350 (iohexol) IV ORAL CONTRAST: No oral contrast ingested. RADIATION DOSE: 16.47 CTDIvol (mGy) MEDICAL HISTORY : Cardiovascular disease. Hypertension. Deep venous thrombosis.Diabetes. SURGICAL HISTORY : Appendectomy. ENCOUNTER: Initial ACUITY: 1 day PAIN SCALE: 4/10 LOCATION: Bilateral Abdomen TECHNIQUE: Volumetric scanning of the abdomen and pelvis was performed. Using automated exposure control and ad justment of the mA and/or kV according to patient size, radiation dose was kept as low as reasonably achievable to obtain optimal diagnostic quality images. DICOM format image data is available electro nically for review and comparison. FINDINGS: LOWER LUNGS: The visualized lower lungs are clear. LIVER: Homogeneous density without lesion. There is no dilation of the biliary tree. No calcified gallston es. SPLEEN: Normal size without lesion. PANCREAS: Within normal limits. KIDNEYS: Normal in size and shape. There is no mass, stone or hydronephrosis. ADRENAL GLANDS: Within normal limits. VASCULAR: There is no aortic aneurysm. BOWEL/MESENTERY: The stomach, small bowel, and colon demonstrate no acute abnormality. There is no free intraperitone al air or fluid. ABDOMINAL WALL: Within normal limits. RETROPERITONEUM: There is no lymphadenopathy. Minimal stranding in the retroperitoneum bilaterally possibly third spac ing of fluid. BLADDER: No wall thickening or mass. REPRODUCTIVE: Within normal limits. INGUINAL: There is no lymphadenopathy or hernia. MUSCULOSKELETAL: Within normal limits for patient age. CONCLUSION: 1. No dilated bowel loops to suggest obstruction. 2. Minimal stranding in the retroperitoneum bilaterally likely benign. Davion Carranza MD on January 24, 2018 at 18:57 Board Certified Radiologist. This report was verified electronically.
[2018-01-24] MEDS: MONTELUKAST SODIUM 10 MG TAB PO SCH (20:37)
[2018-01-24] MEDS: ATORVASTATIN 40 MG TAB PO SCH (20:37)
[2018-01-25] VITALS (8 sets, daily range): BP systolic 110–136; BP diastolic 71–82; PULSE 92–119; RESP 17–20; TEMP 97.4–98.3; O2SAT 95–97
[2018-01-25] MEDS: RESP: ALBUTEROL 2.5 MG/3 ML NEB (PRN) INH ×6 (00:17→21:03)
[2018-01-25 05:44] LABS: ALKALINE PHOSPHATASE 104 U/L (45-117); TOTAL BILIRUBIN ADULT 0.3 MG/DL (0.2-1.0); TOTAL PROTEIN 5.4 GM/DL (6.4-8.2)
[2018-01-25] MEDS: FUROSEMIDE 40 MG/4 ML VIAL IV SCH ×2 (05:44→17:24)
[2018-01-25 05:54] LABS: ALT (GPT) 85 U/L (12-78); AST (GOT) 27 U/L (15-37); BICARBONATE 30.8 MEQ/L (21.0-32.0); BLOOD UREA NITROGEN 14 MG/DL (7-18); CALCIUM 8.5 MG/DL (8.5-10.1); CHLORIDE 98 MEQ/L (98-107); CREATININE 0.67 MG/DL (0.60-1.30); GLOMERULAR FILTRATION RATE 124 ML/MIN (>89); GLUCOSE,RANDOM 118 MG/DL (74-106); SODIUM (NA) 137 MEQ/L (136-145)
[2018-01-25 07:10] LABS: AUTOMATED NEUTROPHIL # 9.1 TH/MM3 (1.8-7.7); BASOPHIL % 0.4 % (0.0-2.0); EOSINOPHIL % 0.3 % (0.0-4.0); HEMOGLOBIN 12.2 GM/DL (13.0-17.0); LYMPH % 14.1 % (9.0-44.0); LYMPHOCYTE # 1.6 TH/MM3 (1.0-4.8); MEAN CELL VOLUME 86.8 FL (80.0-100.0); MEAN CORPUSCULAR HEMOGLOBIN 29.3 PG (27.0-34.0); MEAN CORPUSCULAR HGB CONC 33.8 % (32.0-36.0); MEAN PLATELET VOLUME 7.3 FL (7.0-11.0); MONO % 5.4 % (0.0-8.0); MONOCYTE # 0.6 TH/MM3 (0-0.9); NEUT % 79.8 % (16.0-70.0); PLATELET COUNT 148 TH/MM3 (150-450); RED BLOOD COUNT 4.15 MIL/MM3 (4.50-5.90); RED CELL DISTRIBUTION WIDTH 17.3 % (11.6-17.2); WHITE BLOOD COUNT 11.4 TH/MM3 (4.0-11.0)
[2018-01-25] MEDS: INSULIN ASPART SUPPLEMENTAL SCALE SQ SCH ×4 (08:00→20:43)
[2018-01-25] MEDS ORDERED: predniSONE 20 MG TAB PO SCH (09:00)
[2018-01-25] MEDS: DILTIAZEM-CD 180 MG CAP ER PO SCH (09:16)
[2018-01-25] MEDS: BUDESONIDE-FORMOTEROL 160/4.5 MCG INHALER INH SCH ×2 (09:16→20:19)
[2018-01-25] MEDS: SODIUM CHLORIDE 0.9% FLUSH 10 ML FLUSH IV FLUSH SCH ×2 (09:16→20:18)
[2018-01-25] MEDS: TAMSULOSIN HCL 0.4 MG CAP PO SCH (09:16)
[2018-01-25] MEDS: PANTOPRAZOLE SOD 40 MG DELAYED RELEASE TAB PO SCH (09:16)
[2018-01-25] MEDS: FERROUS SULFATE 325 MG (65 MG ELEMENTAL IRON) TAB PO SCH ×2 (09:16→20:18)
[2018-01-25] MEDS: PARoxetine HCL 20 MG TAB PO SCH (09:16)
[2018-01-25] MEDS: metFORMIN HCL 500 MG TAB PO SCH ×2 (09:17→17:24)
[2018-01-25] MEDS: POTASSIUM CHLORIDE 20 MEQ CONTROLLED RELEASE TAB PO SCH ×2 (09:17→20:19)
[2018-01-25] MEDS: DOCUSATE SODIUM 50 MG/SENNA 8.6 MG TAB PO SCH ×2 (09:17→20:19)
[2018-01-25] MEDS: APIXABAN 5 MG TABLET PO SCH ×2 (09:17→20:18)
[2018-01-25] MEDS: LORazepam 0.5 MG TAB PO SCH ×2 (09:17→20:18)
[2018-01-25] MEDS: LISINOPRIL 5 MG TAB PO SCH ×2 (09:17→20:18)
[2018-01-25] MEDS: NYSTATIN SUSP 500,000 U/5 ML CUP SWISH-SWAL SCH ×4 (09:18→20:17)
[2018-01-25] MEDS: INSULIN DETEMIR 100 UNITS/ML VIAL SQ SCH ×2 (09:18→20:44)
[2018-01-25] MEDS: guaiFENesin/DEXTROMETHORPHAN 200 MG/20 MG/10 ML CUP PO SCH ×4 (09:18→20:17)
--- NOTE | 2018-01-25 10:47 | HHI.PR ---
Subjective History of Present Illness Patient still SOB/ Wheezing. better now Diarrhea watery much better Diabetes mellitis decrease Levemir to 20 units BID. Continue with metformin 1000 mg PO BID. Check Lab in AM, Discussed with patient at bed side. . Leukocytosis monitoring, have pressure ulcer at both buttock area stage 1. Decrease prednisone to 10 mg PO Daily. Review of Systems Constitutional Constitutional: Fatigue, Weakness Pulmonary Respiratory: Coughing, Shortness of Breath, Wheezing Cardiology CV Remarks edema. Integumentary Skin: Wounds Skin Remarks Pressure wound at both buttock area. Allergic/Immunologic Allergic/Immunologic: Asthma Vitals/Results Vital Signs Vital Signs Date Time Temp Pulse Resp B/P (MAP) Pulse Ox O2 Delivery O2 Flow Rate FiO2 01/25/18 08:42 95 21 01/25/18 08:00 97.6 100 20 136/82 (100) 97 01/25/18 04:00 Room Air 01/25/18 04:00 97.4 102 18 110/71 (84) 97 01/25/18 04:00 94 01/25/18 00:00 100 01/25/18 00:00 97.9 102 17 133/81 (98) 95 01/25/18 00:00 Room Air 01/24/18 22:44 Room Air 01/24/18 20:00 127 01/24/18 20:00 98.3 117 18 133/92 (106) 97 01/24/18 19:46 98 01/24/18 16:00 97.9 106 17 127/76 (93) 97 01/24/18 16:00 112 01/24/18 12:00 Room Air 01/24/18 12:00 97.9 96 17 141/79 (99) 95 01/24/18 12:00 92 CBC/BMP: 01/25/18 0354 01/25/18 0354 Lab Results Laboratory Tests Test 01/25/18 03:54 White Blood Count 11.4 TH/MM3 Red Blood Count 4.15 MIL/MM3 Hemoglobin 12.2 GM/DL Hematocrit 36.0 % Mean Corpuscular Volume 86.8 FL Mean Corpuscular Hemoglobin 29.3 PG Mean Corpuscular Hemoglobin Concent 33.8 % Red Cell Distribution Width 17.3 % Platelet Count 148 TH/MM3 Mean Platelet Volume 7.3 FL Neutrophils (%) (Auto) 79.8 % Lymphocytes (%) (Auto) 14.1 % Monocytes (%) (Auto) 5.4 % Eosinophils (%) (Auto) 0.3 % Basophils (%) (Auto) 0.4 % Neutrophils # (Auto) 9.1 TH/MM3 Lymphocytes # (Auto) 1.6 TH/MM3 Monocytes # (Auto) 0.6 TH/MM3 Eosinophils # (Auto) 0.0 TH/MM3 Basophils # (Auto) 0.0 TH/MM3 CBC Comment AUTO DIFF Blood Urea Nitrogen 14 MG/DL Creatinine 0.67 MG/DL Random Glucose 118 MG/DL Total Protein 5.4 GM/DL Albumin 3.0 GM/DL Calcium Level 8.5 MG/DL Alkaline Phosphatase 104 U/L Aspartate Amino Transf (AST/SGOT) 27 U/L Alanine Aminotransferase (ALT/SGPT) 85 U/L Total Bilirubin 0.3 MG/DL Sodium Level 137 MEQ/L Potassium Level 4.1 MEQ/L Chloride Level 98 MEQ/L Carbon Dioxide Level 30.8 MEQ/L Anion Gap 8 MEQ/L Estimat Glomerular Filtration Rate 124 ML/MIN Physical Exam General General Appearance: Well Developed, Well Nourished, Anxious Appearance Remarks Acute respiratory distress mild. Eyes Eye Exam: Pupils Equal, Pupils Reactive, Sclera White, Extraocular Movement Intact Throat Throat Remarks Oral Thrush. Neck Neck Exam: Neck Supple, Trachea Midline Pulmonary Resp Exam: Diminished Breath Sounds, Labored Resp Remarks Bilateral wheezing and crackles. Cardiology CV Exam: Normal Sinus Rhythm, Tachycardia Gastrointestinal/Abdomen GI Exam: Soft, Non-Tender, Bowel Sounds Present, Distended Musculoskeletal MS Exam: Joints Intact Integumentary Skin Exam: Dry Skin Remarks Pressure wound at both buttock area. Extremeties Extremities Exam: Moderate Edema, Pitting Edema Neurologic Neuro Exam: Alert, Awake, Oriented, Moving All Extremities, No Focal Deficits Psychiatric Psych Exam: Appropriate Responses VTE Prophylaxis VTE Remarks Eliquis PUD Prophylasis PUD Prophylaxis: Protonix Assessment/Plan Assessment/Plan ASSESSMENT AND PLAN: This is a 52-year-old male who came to the ER, diagnosed with: 1. Acute respiratory failure secondary to chronic obstructive pulmonary disease/asthma exacerbation. The patient is on DuoNeb nebulization. The patient also on Prednisone 10 mg Daily. The patient is also on Symbicort inhaler, Singulair 10 mg P.O. daily. Pulmonary input noted. Further recommendation per pulmonary. 2. History of COPD/asthma. Continue home medication. 3. History of benign prostatic hypertrophy. Continue with Flomax 0.4 mg p.o. daily. 4. History of hyperlipidemia. Continue with Lipitor 40 mg p.o. daily. 5. Diabetes mellitus. ADA 1800 calorie diet. NovoLog low dose sliding scale. Check blood sugar with meals and at bedtime. Continue with Metformin 1000 mg twice a day. We will monitor blood sugar closely. on Levemir 20 units BID will monitor sugar. 6. History of deep venous thrombosis and pulmonary embolism. The patient on Eliquis 5 mg twice a day. 7. History of hypertension. Continue with diltiazem 360 mg p.o. daily. 8. Iron deficiency anemia. The patient is on ferrous sulfate 325 mg twice a day. 9. Leg edema and generalized edema. The patient is on Lasix 40 mg daily. 10. Anxiety. Continue lorazepam 0.5 mg twice a day. 11. Gastroesophageal reflux disease. Protonix 40 mg p.o. daily. 12. Depression. Continue with Paxil 20 mg p.o. daily. 13. History of oral thrush. The patient is on nystatin 5 mL 4 times a day. 14. Deep venous thrombosis prophylaxis, Eliquis 5 mg twice a day. 15. Gastrointestinal prophylaxis, Protonix 40 mg p.o. daily. 16. Renal Insufficency on Diuretic. better. 17. Leukocytosis monitoring. 18. Hypokalemia resolved. 19. Stage 1 Pressure wound at both buttock area getting treatment. 20. Leg edema on Lasix to 40 mg IV BID. Leg swelling and pain checked venous doppler of lower extremities... negative for DVT. 21. Diarrhea watery checked stool for C- Diff was negative ..better now. Check CBC, CMP in the morning. Discharge plan home with home health care possibly tomorrow. We are going to manage the patient on a daily basis and make recommendations on daily basis. Discussed Condition with: Patient Myron Woodward MD January 25, 2018 10:47
[2018-01-25 10:56] LABS: BANDS 5 % (0-6); CORRECTED NUCLEATED RBC 1 /100 WBC (0-0); LYMPHOCYTES 16 % (9-44); METAMYELOCYTES 2 % (0-1); MONOCYTES 2 % (0-8); MYELOCYTES 5 % (0-0); NEUTROPHIL # MANUAL DIFF 9.3 TH/MM3 (1.8-7.7); NUCLEATED RED BLOOD CELL 1 (0-0); POLYS (SEG NEUTROPHILS) 69 % (16-70); PROMYELOCYTES 1 % (0-0)
[2018-01-25] MEDS ORDERED: METF500 PO (10:57)
[2018-01-25] MEDS ORDERED: Nystatin Liq SWISH-SWAL (10:57)
[2018-01-25 10:58] LABS: OVALOCYTES 1+ (NORMAL)
[2018-01-25] MEDS ORDERED: FURO1TAB60 PO (10:58)
--- NOTE | 2018-01-25 13:53 | HHI.PR ---
Subjective Remarks Awake, no distress, on RA, feeling better, denies and shortness of breath Objective Vital Signs Date Time Temp Pulse Resp B/P (MAP) Pulse Ox O2 Delivery O2 Flow Rate FiO2 01/25/18 12:00 97.8 97 19 131/73 (92) 96 01/25/18 08:42 95 21 01/25/18 08:00 97.6 100 20 136/82 (100) 97 01/25/18 08:00 93 01/25/18 04:00 Room Air 01/25/18 04:00 97.4 102 18 110/71 (84) 97 01/25/18 04:00 94 01/25/18 00:00 100 01/25/18 00:00 97.9 102 17 133/81 (98) 95 01/25/18 00:00 Room Air 01/24/18 22:44 Room Air 01/24/18 20:00 127 01/24/18 20:00 98.3 117 18 133/92 (106) 97 01/24/18 19:46 98 01/24/18 16:00 97.9 106 17 127/76 (93) 97 01/24/18 16:00 112 I/O 01/24/18 01/24/18 01/24/18 01/25/18 01/25/18 01/25/18 07:00 15:00 23:00 07:00 15:00 23:00 Intake Total 960 ml 1500 ml 346 ml Output Total 850 ml 1400 ml 375 ml Balance 110 ml 100 ml -29 ml Intake Oral 960 ml 1500 ml 342 ml IV Total 4 ml Output Urine Total 850 ml 1400 ml 375 ml # Voids 2 # Bowel Movements 1 4 0 Result Diagram: 01/25/18 0354 01/25/18 0354 Objective Remarks GENERAL: alert, awake, no distress SKIN: Warm and dry. HEAD: Atraumatic. Normocephalic. NECK: Trachea midline. No JVD. CARDIOVASCULAR: Regular rate and rhythm. RESPIRATORY: No accessory muscle use. WHEEZING BILATERALY to auscultation improved. Breath sounds equal bilaterally. No Supplemental O2 GASTROINTESTINAL: Abdomen soft, non-tender, nondistended. Hepatic and splenic margins not palpable. MUSCULOSKELETAL: Extremities without clubbing, cyanosis, or edema. No obvious deformities. NEUROLOGICAL: Awake and alert. No obvious cranial nerve deficits. Motor grossly within normal limits. Five out of 5 muscle strength in the arms and legs. Normal speech. PSYCHIATRIC: Appropriate mood and affect; insight and judgment normal. Assessment and Plan Assessment and Plan ass: asthma exacerbation - IMPROVED DM plan O2/ as needed BRONCHODILATORS INCREASE ACTIVITY Outpatient follow up after D/C Mary Hernandez MD January 25, 2018 13:53
--- NOTE | 2018-01-25 14:41 | HHI.GIFU ---
Subjective Remarks Pt is sitting up in chair, had 2 BMs today s/p Mag-citrate, no nausea, no vomiting or abd pain, he is concerned about his big belly. (Bam Diana) Objective Vitals I&O Vital Signs Date Time Temp Pulse Resp B/P (MAP) Pulse Ox O2 Delivery O2 Flow Rate FiO2 01/25/18 12:00 97.8 97 19 131/73 (92) 96 01/25/18 08:42 95 21 01/25/18 08:00 97.6 100 20 136/82 (100) 97 01/25/18 08:00 93 01/25/18 04:00 Room Air 01/25/18 04:00 97.4 102 18 110/71 (84) 97 01/25/18 04:00 94 01/25/18 00:00 100 01/25/18 00:00 97.9 102 17 133/81 (98) 95 01/25/18 00:00 Room Air 01/24/18 22:44 Room Air 01/24/18 20:00 127 01/24/18 20:00 98.3 117 18 133/92 (106) 97 01/24/18 19:46 98 01/24/18 16:00 97.9 106 17 127/76 (93) 97 01/24/18 16:00 112 I/O 01/24/18 01/24/18 01/24/18 01/25/18 01/25/18 01/25/18 07:00 15:00 23:00 07:00 15:00 23:00 Intake Total 960 ml 1500 ml 346 ml Output Total 850 ml 1400 ml 375 ml Balance 110 ml 100 ml -29 ml Intake Oral 960 ml 1500 ml 342 ml IV Total 4 ml Output Urine Total 850 ml 1400 ml 375 ml # Voids 2 # Bowel Movements 1 4 0 Laboratory Laboratory Tests Test 01/25/18 03:54 White Blood Count 11.4 Red Blood Count 4.15 Hemoglobin 12.2 Hematocrit 36.0 Mean Corpuscular Volume 86.8 Mean Corpuscular Hemoglobin 29.3 Mean Corpuscular Hemoglobin Concent 33.8 Red Cell Distribution Width 17.3 Platelet Count 148 Mean Platelet Volume 7.3 Neutrophils (%) (Auto) 79.8 Lymphocytes (%) (Auto) 14.1 Monocytes (%) (Auto) 5.4 Eosinophils (%) (Auto) 0.3 Basophils (%) (Auto) 0.4 Neutrophils # (Auto) 9.1 Lymphocytes # (Auto) 1.6 Monocytes # (Auto) 0.6 Eosinophils # (Auto) 0.0 Basophils # (Auto) 0.0 CBC Comment AUTO DIFF Differential Total Cells Counted 100 Neutrophils % (Manual) 69 Band Neutrophils % 5 Lymphocytes % 16 Monocytes % 2 Neutrophils # (Manual) 9.3 Metamyelocytes 2 Myelocytes 5 Promyelocytes 1 Nucleated Red Blood Cells 1 Differential Comment FINAL DIFF MANUAL Platelet Estimate LOW Platelet Morphology Comment NORMAL Ovalocytes 1+ Blood Urea Nitrogen 14 Creatinine 0.67 Random Glucose 118 Total Protein 5.4 Albumin 3.0 Calcium Level 8.5 Alkaline Phosphatase 104 Aspartate Amino Transf (AST/SGOT) 27 Alanine Aminotransferase (ALT/SGPT) 85 Total Bilirubin 0.3 Sodium Level 137 Potassium Level 4.1 Chloride Level 98 Carbon Dioxide Level 30.8 Anion Gap 8 Estimat Glomerular Filtration Rate 124 Date/Time Source Procedure Growth Status 12/31/17 09:00 Blood Peripheral Aerobic Blood Culture - Final NO GROWTH IN 5 DAYS Complete 12/31/17 09:00 Blood Peripheral Anaerobic Blood Culture - Final NO GROWTH IN 5 DAYS Complete 12/31/17 09:30 Nasal Aspirate Influenza Types A,B Antigen (STEFFANIE) - Final NEGATIVE FOR FLU A AND B ANTIGEN.... Complete Imaging Last Impressions Abdomen/Pelvis CT 01/24/18 0000 Signed Impressions: Service Date/Time: Wednesday, January 24, 2018 18:41 - CONCLUSION: 1. No dilated bowel loops to suggest obstruction. 2. Minimal stranding in the retroperitoneum bilaterally likely benign. Davion Carranza MD Abdomen X-Ray 01/24/18 0000 Signed Impressions: Service Date/Time: Wednesday, January 24, 2018 09:40 - CONCLUSION: Constipation. No dilated loops of small bowel. Adriel Thompson MD Lower Extremity Ultrasound 01/22/18 0000 Signed Impressions: Service Date/Time: January 09:42 - CONCLUSION: No evidence of DVT. No significant change. Tyler Mast MD Chest X-Ray 01/11/18 0000 Signed Impressions: Service Date/Time: Thursday, January 11, 2018 12:30 - CONCLUSION: No acute cardiopulmonary abnormality is identified. Adin Cheema MD Physical Exam HEENT: normocephalic; atraumatic; no jaundice. CHEST: Chest is clear to auscultation and percussion. CARDIAC: Regular rate and rhythm with no murmur gallop or rubs. ABDOMEN: Soft, slightly distended, nontender; no hepatosplenomegaly; bowel sounds are present in all four quadrants. EXTREMITIES: No clubbing, cyanosis, or edema. SKIN: Normal; no rash; no jaundice. PATENT EXAMINER: No focal deficits; alert and oriented times three. (Bam Diana) Assessment and Plan Plan Assessment: - Diarrhea- pt states watery BMs for the past few days C. Diff stool negative. Normally has chronic constipation takes Miralax at home every other day. Abdomen flat & upright (01/24) --> Constipation. No dilated loops of small bowel. Colonoscopy (11/2016) revealed diverticulosis in the sigmoid and descending colon, diminutive polyp hepatic flexure, semisolid stool throughout the colon, internal hemorrhoids. Pathology revealed adenomatous polyp. CT on 01/24/18 negative for bowel obstruction, minimal stranding in the retroperitoneum bilaterally likely benign. - Abdominal swelling- pt reports this has been chronic for 3 years, denies any recent change in abdomen size but states the doctor has told him it seems to be increasing EGD (11/2016) revealed Normal duodenum, gastritis in the antrum, esophagitis in the distal esophagus, and hiatal hernia. Pathology revealed (gastric antrum) features suggestive of chemical gastropathy (gastroesophageal mucosal biopsy) extensive intestinal metaplasia, negative for dysplasia. 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 Street and this note is written on her behalf (Bam Diana) Physician Comments seen, examined agree with above colonoscopy before discharge (Ashley Street MD) Bam Diana January 25, 2018 14:[address] MD January 25, 2018 19:40
[2018-01-25] MEDS: ATORVASTATIN 40 MG TAB PO SCH (20:18)
[2018-01-25] MEDS: MONTELUKAST SODIUM 10 MG TAB PO SCH (20:19)
[2018-01-26] VITALS (10 sets, daily range): BP systolic 114–146; BP diastolic 72–87; PULSE 96–124; RESP 18–22; TEMP 97.7–98.3; O2SAT 95–98
[2018-01-26] MEDS: RESP: ALBUTEROL 2.5 MG/3 ML NEB (PRN) INH ×2 (00:43→08:58)
[2018-01-26 05:19] LABS: AUTOMATED NEUTROPHIL # 6.8 TH/MM3 (1.8-7.7); BASOPHIL % 0.2 % (0.0-2.0); EOSINOPHIL % 0.4 % (0.0-4.0); HEMATOCRIT 34.9 % (39.0-51.0); HEMOGLOBIN 11.8 GM/DL (13.0-17.0); LYMPH % 14.9 % (9.0-44.0); LYMPHOCYTE # 1.3 TH/MM3 (1.0-4.8); MEAN CELL VOLUME 88.7 FL (80.0-100.0); MEAN CORPUSCULAR HEMOGLOBIN 29.9 PG (27.0-34.0); MEAN CORPUSCULAR HGB CONC 33.7 % (32.0-36.0); MEAN PLATELET VOLUME 7.1 FL (7.0-11.0); MONO % 5.8 % (0.0-8.0); MONOCYTE # 0.5 TH/MM3 (0-0.9); NEUT % 78.7 % (16.0-70.0); PLATELET COUNT 133 TH/MM3 (150-450); RED BLOOD COUNT 3.94 MIL/MM3 (4.50-5.90); RED CELL DISTRIBUTION WIDTH 17.9 % (11.6-17.2); WHITE BLOOD COUNT 8.7 TH/MM3 (4.0-11.0)
[2018-01-26] MEDS: FUROSEMIDE 40 MG/4 ML VIAL IV SCH ×2 (05:45→16:31)
[2018-01-26 05:53] LABS: ALKALINE PHOSPHATASE 94 U/L (45-117); ALT (GPT) 83 U/L (12-78); TOTAL BILIRUBIN ADULT 0.3 MG/DL (0.2-1.0); TOTAL PROTEIN 5.3 GM/DL (6.4-8.2)
[2018-01-26 05:56] LABS: ALBUMIN 2.9 GM/DL (3.4-5.0); AST (GOT) 26 U/L (15-37); BICARBONATE 30.2 MEQ/L (21.0-32.0); BLOOD UREA NITROGEN 13 MG/DL (7-18); CALCIUM 8.3 MG/DL (8.5-10.1); CHLORIDE 98 MEQ/L (98-107); CREATININE 0.63 MG/DL (0.60-1.30); GLOMERULAR FILTRATION RATE 133 ML/MIN (>89); GLUCOSE,RANDOM 83 MG/DL (74-106); SODIUM (NA) 137 MEQ/L (136-145)
[2018-01-26 07:53] LABS: BANDS 7 % (0-6); CORRECTED NUCLEATED RBC 5 /100 WBC (0-0); LYMPHOCYTES 9 % (9-44); METAMYELOCYTES 5 % (0-1); MONOCYTES 5 % (0-8); MYELOCYTES 3 % (0-0); NEUTROPHIL # MANUAL DIFF 7.5 TH/MM3 (1.8-7.7); NUCLEATED RED BLOOD CELL 5 (0-0); OVALOCYTES 1+ (NORMAL); POLYS (SEG NEUTROPHILS) 71 % (16-70)
[2018-01-26] MEDS: INSULIN ASPART SUPPLEMENTAL SCALE SQ SCH ×4 (08:00→21:00)
[2018-01-26] MEDS: BUDESONIDE-FORMOTEROL 160/4.5 MCG INHALER INH SCH ×2 (08:40→21:09)
[2018-01-26] MEDS: guaiFENesin/DEXTROMETHORPHAN 200 MG/20 MG/10 ML CUP PO SCH ×4 (08:40→21:10)
[2018-01-26] MEDS: NYSTATIN SUSP 500,000 U/5 ML CUP SWISH-SWAL SCH ×4 (08:40→21:10)
[2018-01-26] MEDS: DILTIAZEM-CD 180 MG CAP ER PO SCH (08:41)
[2018-01-26] MEDS: PARoxetine HCL 20 MG TAB PO SCH (08:41)
[2018-01-26] MEDS: LISINOPRIL 5 MG TAB PO SCH ×2 (08:41→21:11)
[2018-01-26] MEDS: metFORMIN HCL 500 MG TAB PO SCH ×2 (08:41→16:31)
[2018-01-26] MEDS: POTASSIUM CHLORIDE 20 MEQ CONTROLLED RELEASE TAB PO SCH ×2 (08:41→21:11)
[2018-01-26] MEDS: LORazepam 0.5 MG TAB PO SCH ×2 (08:41→21:10)
[2018-01-26] MEDS: FERROUS SULFATE 325 MG (65 MG ELEMENTAL IRON) TAB PO SCH ×2 (08:41→21:10)
[2018-01-26] MEDS: DOCUSATE SODIUM 50 MG/SENNA 8.6 MG TAB PO SCH ×2 (08:42→21:00)
[2018-01-26] MEDS: TAMSULOSIN HCL 0.4 MG CAP PO SCH (08:42)
[2018-01-26] MEDS: APIXABAN 5 MG TABLET PO SCH (08:42)
[2018-01-26] MEDS: PANTOPRAZOLE SOD 40 MG DELAYED RELEASE TAB PO SCH (08:42)
[2018-01-26] MEDS: SODIUM CHLORIDE 0.9% FLUSH 10 ML FLUSH IV FLUSH SCH ×2 (08:44→21:11)
[2018-01-26] MEDS: INSULIN DETEMIR 100 UNITS/ML VIAL SQ SCH ×2 (08:44→21:00)
[2018-01-26] MEDS ORDERED: predniSONE 10 MG TAB PO SCH (09:00)
--- NOTE | 2018-01-26 09:30 | HHI.PR ---
Subjective History of Present Illness Patient condition worsen today got more SOB/ Wheezing. Diabetes mellitis decrease Levemir to 20 units BID. Continue with metformin 1000 mg PO BID. Check Lab in AM, Discussed with patient at bed side. . Leukocytosis monitoring, have pressure ulcer at both buttock area stage 1. Started on solumerdol 40 mg IV BID and Duoneb neublization every 3 hrs. Review of Systems Constitutional Constitutional: Fatigue, Weakness Pulmonary Respiratory: Coughing, Shortness of Breath, Wheezing Cardiology CV Remarks edema. Integumentary Skin: Wounds Skin Remarks Pressure wound at both buttock area. Allergic/Immunologic Allergic/Immunologic: Asthma Vitals/Results Vital Signs Vital Signs Date Time Temp Pulse Resp B/P (MAP) Pulse Ox O2 Delivery O2 Flow Rate FiO2 01/26/18 08:59 96 01/26/18 08:00 Room Air 01/26/18 08:00 98.1 104 18 146/83 (104) 96 01/26/18 04:00 97.7 113 18 137/87 (104) 98 01/26/18 04:00 118 01/26/18 04:00 Room Air 01/26/18 00:00 122 01/26/18 00:00 Room Air 01/26/18 00:00 97.9 124 18 137/81 (99) 96 01/25/18 21:08 97 Nasal Cannula 01/25/18 20:00 114 01/25/18 20:00 98.3 119 17 122/72 (89) 96 01/25/18 20:00 Room Air 01/25/18 16:00 98.1 106 18 123/74 (90) 97 01/25/18 16:00 Room Air 01/25/18 16:00 99 01/25/18 12:00 Room Air 01/25/18 12:00 97.8 97 19 131/73 (92) 96 01/25/18 12:00 92 CBC/BMP: 01/26/18 0435 01/26/18 0435 Lab Results Laboratory Tests Test 01/26/18 04:35 White Blood Count 8.7 TH/MM3 Red Blood Count 3.94 MIL/MM3 Hemoglobin 11.8 GM/DL Hematocrit 34.9 % Mean Corpuscular Volume 88.7 FL Mean Corpuscular Hemoglobin 29.9 PG Mean Corpuscular Hemoglobin Concent 33.7 % Red Cell Distribution Width 17.9 % Platelet Count 133 TH/MM3 Mean Platelet Volume 7.1 FL Neutrophils (%) (Auto) 78.7 % Lymphocytes (%) (Auto) 14.9 % Monocytes (%) (Auto) 5.8 % Eosinophils (%) (Auto) 0.4 % Basophils (%) (Auto) 0.2 % Neutrophils # (Auto) 6.8 TH/MM3 Lymphocytes # (Auto) 1.3 TH/MM3 Monocytes # (Auto) 0.5 TH/MM3 Eosinophils # (Auto) 0.0 TH/MM3 Basophils # (Auto) 0.0 TH/MM3 CBC Comment AUTO DIFF Differential Total Cells Counted 100 Neutrophils % (Manual) 71 % Band Neutrophils % 7 % Lymphocytes % 9 % Monocytes % 5 % Neutrophils # (Manual) 7.5 TH/MM3 Metamyelocytes 5 % Myelocytes 3 % Nucleated Red Blood Cells 5 /100 WBC Differential Comment FINAL DIFF MANUAL Atypical Lymphocytes % Platelet Estimate LOW Platelet Morphology Comment NORMAL Ovalocytes 1+ Blood Urea Nitrogen 13 MG/DL Creatinine 0.63 MG/DL Random Glucose 83 MG/DL Total Protein 5.3 GM/DL Albumin 2.9 GM/DL Calcium Level 8.3 MG/DL Alkaline Phosphatase 94 U/L Aspartate Amino Transf (AST/SGOT) 26 U/L Alanine Aminotransferase (ALT/SGPT) 83 U/L Total Bilirubin 0.3 MG/DL Sodium Level 137 MEQ/L Potassium Level 3.7 MEQ/L Chloride Level 98 MEQ/L Carbon Dioxide Level 30.2 MEQ/L Anion Gap 9 MEQ/L Estimat Glomerular Filtration Rate 133 ML/MIN Physical Exam General General Appearance: Well Developed, Well Nourished, Anxious Appearance Remarks Acute respiratory distress mild. Eyes Eye Exam: Pupils Equal, Pupils Reactive, Sclera White, Extraocular Movement Intact Throat Throat Remarks Oral Thrush. Neck Neck Exam: Neck Supple, Trachea Midline Pulmonary Resp Exam: Diminished Breath Sounds, Labored Resp Remarks Bilateral wheezing and crackles. Cardiology CV Exam: Normal Sinus Rhythm, Tachycardia Gastrointestinal/Abdomen GI Exam: Soft, Non-Tender, Bowel Sounds Present, Distended Musculoskeletal MS Exam: Joints Intact Integumentary Skin Exam: Dry Skin Remarks Pressure wound at both buttock area. Extremeties Extremities Exam: Moderate Edema, Pitting Edema Neurologic Neuro Exam: Alert, Awake, Oriented, Moving All Extremities, No Focal Deficits Psychiatric Psych Exam: Appropriate Responses VTE Prophylaxis VTE Remarks Eliquis PUD Prophylasis PUD Prophylaxis: Protonix Assessment/Plan Assessment/Plan ASSESSMENT AND PLAN: This is a 52-year-old male who came to the ER, diagnosed with: 1. Acute respiratory failure secondary to chronic obstructive pulmonary disease/asthma exacerbation. The patient is on DuoNeb nebulization every 3 hrs. The patient also started on solumedrol 40 mg IV BID. The patient is also on Symbicort inhaler, Singulair 10 mg P.O. daily. Pulmonary input noted. Further recommendation per pulmonary. 2. History of COPD/asthma. Continue home medication. 3. History of benign prostatic hypertrophy. Continue with Flomax 0.4 mg p.o. daily. 4. History of hyperlipidemia. Continue with Lipitor 40 mg p.o. daily. 5. Diabetes mellitus. ADA 1800 calorie diet. NovoLog low dose sliding scale. Check blood sugar with meals and at bedtime. Continue with Metformin 1000 mg twice a day. We will monitor blood sugar closely. on Levemir 20 units BID will monitor sugar. 6. History of deep venous thrombosis and pulmonary embolism. The patient on Eliquis 5 mg twice a day. 7. History of hypertension. Continue with diltiazem 360 mg p.o. daily. 8. Iron deficiency anemia. The patient is on ferrous sulfate 325 mg twice a day. 9. Leg edema and generalized edema. The patient is on Lasix 40 mg daily. 10. Anxiety. Continue lorazepam 0.5 mg twice a day. 11. Gastroesophageal reflux disease. Protonix 40 mg p.o. daily. 12. Depression. Continue with Paxil 20 mg p.o. daily. 13. History of oral thrush. The patient is on nystatin 5 mL 4 times a day. 14. Deep venous thrombosis prophylaxis, Eliquis 5 mg twice a day. 15. Gastrointestinal prophylaxis, Protonix 40 mg p.o. daily. 16. Renal Insufficency on Diuretic. better. 17. Leukocytosis monitoring. 18. Hypokalemia resolved. 19. Stage 1 Pressure wound at both buttock area getting treatment. 20. Leg edema on Lasix to 40 mg IV BID. Leg swelling and pain checked venous doppler of lower extremities... negative for DVT. 21. Diarrhea watery checked stool for C- Diff was negative ..better now. Check CBC, CMP in the morning. We are going to manage the patient on a daily basis and make recommendations on daily basis. Discussed Condition with: Patient Myron Woodward MD January 26, 2018 09:30
[2018-01-26] MEDS: methylPREDNISolone SOD SUCC 40 MG/1 ML VIAL IV PUSH SCH ×2 (10:01→21:10)
[2018-01-26] MEDS: RESP: ALBUTEROL 2.5 MG/3 ML NEB (SCH) INH ×5 (11:10→22:05)
--- NOTE | 2018-01-26 13:12 | HHI.PR ---
Subjective Remarks Awake, increase SOB overnight back on IV steroids Objective Vital Signs Date Time Temp Pulse Resp B/P (MAP) Pulse Ox O2 Delivery O2 Flow Rate FiO2 01/26/18 12:00 107 01/26/18 12:00 Room Air 01/26/18 12:00 98.1 115 21 146/82 (103) 95 01/26/18 08:59 96 01/26/18 08:00 96 01/26/18 08:00 Room Air 01/26/18 08:00 98.1 104 18 146/83 (104) 96 01/26/18 04:00 97.7 113 18 137/87 (104) 98 01/26/18 04:00 118 01/26/18 04:00 Room Air 01/26/18 00:00 122 01/26/18 00:00 Room Air 01/26/18 00:00 97.9 124 18 137/81 (99) 96 01/25/18 21:08 97 Nasal Cannula 01/25/18 20:00 114 01/25/18 20:00 98.3 119 17 122/72 (89) 96 01/25/18 20:00 Room Air 01/25/18 16:00 98.1 106 18 123/74 (90) 97 01/25/18 16:00 Room Air 01/25/18 16:00 99 I/O 01/25/18 01/25/18 01/25/18 01/26/18 01/26/18 01/26/18 07:00 15:00 23:00 07:00 15:00 23:00 Intake Total 346 ml 1080 ml 222 ml Output Total 375 ml 100 ml Balance -29 ml 980 ml 222 ml Intake Oral 342 ml 1080 ml 222 ml IV Total 4 ml Output Urine Total 375 ml 100 ml # Voids 4 3 # Bowel Movements 0 1 0 Result Diagram: 01/26/18 0435 01/26/18 043 Objective Remarks GENERAL: alert, awake, no distress SKIN: Warm and dry. HEAD: Atraumatic. Normocephalic. NECK: Trachea midline. No JVD. CARDIOVASCULAR: Regular rate and rhythm. RESPIRATORY: No accessory muscle use. WHEEZING BILATERALY to auscultation improved. Breath sounds equal bilaterally. No Supplemental O2 GASTROINTESTINAL: Abdomen soft, non-tender, nondistended. Hepatic and splenic margins not palpable. MUSCULOSKELETAL: Extremities without clubbing, cyanosis, or edema. No obvious deformities. NEUROLOGICAL: Awake and alert. No obvious cranial nerve deficits. Motor grossly within normal limits. Five out of 5 muscle strength in the arms and legs. Normal speech. PSYCHIATRIC: Appropriate mood and affect; insight and judgment normal. Assessment and Plan Assessment and Plan ass: asthma exacerbation - DM plan O2/ as needed BRONCHODILATORS INCREASE ACTIVITY Mary Hernandez MD January 26, 2018 13:12
--- NOTE | 2018-01-26 14:49 | HHI.GIFU ---
Subjective Remarks Pt reports he is now having normal BMs Abdomen still distended but he states this is his normal Tolerating PO Denies nausea, vomiting (Lillian Bradford) Objective Vitals I&O Vital Signs Date Time Temp Pulse Resp B/P (MAP) Pulse Ox O2 Delivery O2 Flow Rate FiO2 01/26/18 12:00 107 01/26/18 12:00 Room Air 01/26/18 12:00 98.1 115 21 146/82 (103) 95 01/26/18 08:59 96 01/26/18 08:00 96 01/26/18 08:00 Room Air 01/26/18 08:00 98.1 104 18 146/83 (104) 96 01/26/18 04:00 97.7 113 18 137/87 (104) 98 01/26/18 04:00 118 01/26/18 04:00 Room Air 01/26/18 00:00 122 01/26/18 00:00 Room Air 01/26/18 00:00 97.9 124 18 137/81 (99) 96 01/25/18 21:08 97 Nasal Cannula 01/25/18 20:00 114 01/25/18 20:00 98.3 119 17 122/72 (89) 96 01/25/18 20:00 Room Air 01/25/18 16:00 98.1 106 18 123/74 (90) 97 01/25/18 16:00 Room Air 01/25/18 16:00 99 I/O 01/25/18 01/25/18 01/25/18 01/26/18 01/26/18 01/26/18 07:00 15:00 23:00 07:00 15:00 23:00 Intake Total 346 ml 1080 ml 222 ml Output Total 375 ml 100 ml Balance -29 ml 980 ml 222 ml Intake Oral 342 ml 1080 ml 222 ml IV Total 4 ml Output Urine Total 375 ml 100 ml # Voids 4 3 # Bowel Movements 0 1 0 Laboratory Laboratory Tests Test 01/26/18 04:35 White Blood Count 8.7 Red Blood Count 3.94 Hemoglobin 11.8 Hematocrit 34.9 Mean Corpuscular Volume 88.7 Mean Corpuscular Hemoglobin 29.9 Mean Corpuscular Hemoglobin Concent 33.7 Red Cell Distribution Width 17.9 Platelet Count 133 Mean Platelet Volume 7.1 Neutrophils (%) (Auto) 78.7 Lymphocytes (%) (Auto) 14.9 Monocytes (%) (Auto) 5.8 Eosinophils (%) (Auto) 0.4 Basophils (%) (Auto) 0.2 Neutrophils # (Auto) 6.8 Lymphocytes # (Auto) 1.3 Monocytes # (Auto) 0.5 Eosinophils # (Auto) 0.0 Basophils # (Auto) 0.0 CBC Comment AUTO DIFF Differential Total Cells Counted 100 Neutrophils % (Manual) 71 Band Neutrophils % 7 Lymphocytes % 9 Monocytes % 5 Neutrophils # (Manual) 7.5 Metamyelocytes 5 Myelocytes 3 Nucleated Red Blood Cells 5 Differential Comment FINAL DIFF MANUAL Atypical Lymphocytes Platelet Estimate LOW Platelet Morphology Comment NORMAL Ovalocytes 1+ Blood Urea Nitrogen 13 Creatinine 0.63 Random Glucose 83 Total Protein 5.3 Albumin 2.9 Calcium Level 8.3 Alkaline Phosphatase 94 Aspartate Amino Transf (AST/SGOT) 26 Alanine Aminotransferase (ALT/SGPT) 83 Total Bilirubin 0.3 Sodium Level 137 Potassium Level 3.7 Chloride Level 98 Carbon Dioxide Level 30.2 Anion Gap 9 Estimat Glomerular Filtration Rate 133 Date/Time Source Procedure Growth Status 12/31/17 09:00 Blood Peripheral Aerobic Blood Culture - Final NO GROWTH IN 5 DAYS Complete 12/31/17 09:00 Blood Peripheral Anaerobic Blood Culture - Final NO GROWTH IN 5 DAYS Complete 12/31/17 09:30 Nasal Aspirate Influenza Types A,B Antigen (STEFFANIE) - Final NEGATIVE FOR FLU A AND B ANTIGEN.... Complete Imaging Last Impressions Abdomen/Pelvis CT 01/24/18 0000 Signed Impressions: Service Date/Time: Wednesday, January 24, 2018 18:41 - CONCLUSION: 1. No dilated bowel loops to suggest obstruction. 2. Minimal stranding in the retroperitoneum bilaterally likely benign. Davion Carranza MD Abdomen X-Ray 01/24/18 0000 Signed Impressions: Service Date/Time: Wednesday, January 24, 2018 09:40 - CONCLUSION: Constipation. No dilated loops of small bowel. Adriel Thompson MD Lower Extremity Ultrasound 01/22/18 0000 Signed Impressions: Service Date/Time: January 09:42 - CONCLUSION: No evidence of DVT. No significant change. Tyler Mast MD Chest X-Ray 01/11/18 0000 Signed Impressions: Service Date/Time: Thursday, January 11, 2018 12:30 - CONCLUSION: No acute cardiopulmonary abnormality is identified. Adin Cheema MD Physical Exam HEENT: Normocephalic; atraumatic CHEST: Even/unlabored CARDIAC: RRR ABDOMEN: Distended, soft, nontender, bowel sounds active EXTREMITIES: No clubbing, cyanosis, or edema. SKIN: Normal; no rash; no jaundice. PAN WASHER: Alert and oriented times three. (Lillian Bradford) Assessment and Plan Plan Assessment: - Diarrhea- pt states watery BMs for the past few days C. Diff stool negative. Normally has chronic constipation takes Miralax at home every other day. Abdomen flat & upright (01/24) --> Constipation. No dilated loops of small bowel. Colonoscopy (11/2016) revealed diverticulosis in the sigmoid and descending colon, diminutive polyp hepatic flexure, semisolid stool throughout the colon, internal hemorrhoids. Pathology revealed adenomatous polyp. CT on 01/24/18 negative for bowel obstruction, minimal stranding in the retroperitoneum bilaterally likely benign. - Abdominal swelling- pt reports this has been chronic for 3 years, denies any recent change in abdomen size but states the doctor has told him it seems to be increasing EGD (11/2016) revealed Normal duodenum, gastritis in the antrum, esophagitis in the distal esophagus, and hiatal hernia. Pathology revealed (gastric antrum) features suggestive of chemical gastropathy (gastroesophageal mucosal biopsy) extensive intestinal metaplasia, negative for dysplasia. 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 Abdomen is still distended but he states this is normal for him. He is agreeable to have colonoscopy while inpatient. Plan: - Colonoscopy tomorrow - Obtain consent - Clear liquid today - Magnesium Citrate prep - NPO after MN - Hold Eliquis - Further recommendations based on findings of above Pt has been seen and examined by myself and Dr. Walters and this note is written on his behalf (Lillian Bradford) Physician Comments Patient seen and examined Agree with above Continue with current supportive care Monitor labs Colonoscopy tomorrow (Ifeanyi Walters MD) Lillian Bradford January 26, 2018 14:49 Ifeanyi Walters MD January 26, 2018 22:15
[2018-01-26] MEDS ORDERED: MAGNESIUM CITRATE SOLN 300 ML BTL PO ONE ×2 (16:00→18:00)
[2018-01-26] MEDS: MONTELUKAST SODIUM 10 MG TAB PO SCH (21:10)
[2018-01-26] MEDS: ATORVASTATIN 40 MG TAB PO SCH (21:10)
[2018-01-27] VITALS (13 sets, daily range): BP systolic 108–138; BP diastolic 69–83; PULSE 72–108; RESP 16–18; TEMP 97.4–98; O2SAT 95–99
[2018-01-27] MEDS: RESP: ALBUTEROL 2.5 MG/3 ML NEB (SCH) INH ×8 (01:49→22:21)
[2018-01-27] MEDS: FUROSEMIDE 40 MG/4 ML VIAL IV SCH ×2 (06:42→18:28)
[2018-01-27] MEDS: INSULIN ASPART SUPPLEMENTAL SCALE SQ SCH ×4 (08:00→21:00)
[2018-01-27] MEDS: INSULIN DETEMIR 100 UNITS/ML VIAL SQ SCH ×2 (09:00→21:00)
[2018-01-27] MEDS: DOCUSATE SODIUM 50 MG/SENNA 8.6 MG TAB PO SCH ×2 (09:00→21:27)
[2018-01-27] MEDS: metFORMIN HCL 500 MG TAB PO SCH ×2 (09:00→18:28)
[2018-01-27] MEDS: PANTOPRAZOLE SOD 40 MG DELAYED RELEASE TAB PO SCH (09:09)
[2018-01-27] MEDS: guaiFENesin/DEXTROMETHORPHAN 200 MG/20 MG/10 ML CUP PO SCH ×4 (09:09→21:26)
[2018-01-27] MEDS: NYSTATIN SUSP 500,000 U/5 ML CUP SWISH-SWAL SCH ×4 (09:09→21:26)
[2018-01-27] MEDS: TAMSULOSIN HCL 0.4 MG CAP PO SCH (09:10)
[2018-01-27] MEDS: LISINOPRIL 5 MG TAB PO SCH ×2 (09:10→21:27)
[2018-01-27] MEDS: PARoxetine HCL 20 MG TAB PO SCH (09:10)
[2018-01-27] MEDS: POTASSIUM CHLORIDE 20 MEQ CONTROLLED RELEASE TAB PO SCH ×2 (09:10→21:27)
[2018-01-27] MEDS: LORazepam 0.5 MG TAB PO SCH ×2 (09:10→21:26)
[2018-01-27] MEDS: DILTIAZEM-CD 180 MG CAP ER PO SCH (09:10)
[2018-01-27] MEDS: FERROUS SULFATE 325 MG (65 MG ELEMENTAL IRON) TAB PO SCH ×2 (09:10→21:26)
[2018-01-27] MEDS: methylPREDNISolone SOD SUCC 40 MG/1 ML VIAL IV PUSH SCH ×2 (09:11→21:26)
[2018-01-27] MEDS: SODIUM CHLORIDE 0.9% FLUSH 10 ML FLUSH IV FLUSH SCH ×2 (09:11→21:36)
[2018-01-27] MEDS: BUDESONIDE-FORMOTEROL 160/4.5 MCG INHALER INH SCH ×2 (09:11→21:34)
--- NOTE | 2018-01-27 10:21 | HHI.PR ---
Subjective Remarks Awake, Less SOB today Objective Vital Signs Date Time Temp Pulse Resp B/P (MAP) Pulse Ox O2 Delivery O2 Flow Rate FiO2 01/27/18 08:00 97.7 94 16 121/80 (94) 97 01/27/18 07:30 95 21 01/27/18 04:00 97.4 97 18 125/83 (97) 97 01/27/18 03:53 89 01/27/18 00:00 97.9 104 18 138/78 (98) 97 01/26/18 23:50 104 01/26/18 20:07 107 01/26/18 20:00 Room Air 01/26/18 20:00 97.9 107 20 119/72 (88) 98 01/26/18 16:20 97 21 01/26/18 16:00 Room Air 01/26/18 16:00 102 01/26/18 16:00 98.3 112 22 114/73 (87) 95 01/26/18 12:00 107 01/26/18 12:00 Room Air 01/26/18 12:00 98.1 115 21 146/82 (103) 95 I/O 01/26/18 01/26/18 01/26/18 01/27/18 01/27/18 01/27/18 07:00 15:00 23:00 07:00 15:00 23:00 Intake Total 222 ml 480 ml 0 ml Output Total 2000 ml 450 ml Balance 222 ml -1520 ml -450 ml Intake Oral 222 ml 480 ml 0 ml Output Urine Total 2000 ml 450 ml # Voids 3 2 # Bowel Movements 0 0 7 Result Diagram: 01/26/18 0435 01/26/18 0435 Objective Remarks GENERAL: alert, awake, no distress SKIN: Warm and dry. HEAD: Atraumatic. Normocephalic. NECK: Trachea midline. No JVD. CARDIOVASCULAR: Regular rate and rhythm. RESPIRATORY: No accessory muscle use. WHEEZING BILATERALY to auscultation improved. Breath sounds equal bilaterally. No Supplemental O2 GASTROINTESTINAL: Abdomen soft, non-tender, nondistended. Hepatic and splenic margins not palpable. MUSCULOSKELETAL: Extremities without clubbing, cyanosis, or edema. No obvious deformities. NEUROLOGICAL: Awake and alert. No obvious cranial nerve deficits. Motor grossly within normal limits. Five out of 5 muscle strength in the arms and legs. Normal speech. PSYCHIATRIC: Appropriate mood and affect; insight and judgment normal. Assessment and Plan Assessment and Plan ass: asthma exacerbation - DM plan O2/ as needed BRONCHODILATORS INCREASE ACTIVITY COLONOSCOPY TODAY Mary Hernandez MD January 27, 2018 10:21
[2018-01-27] MEDS ORDERED: LIDOCAINE HCL 1% PF 5 ML SYRINGE OTHER ONE (12:00)
[2018-01-27] MEDS ORDERED: PROPOFOL 200 MG/20 ML AMP IV ONE (12:00)
--- NOTE | 2018-01-27 12:04 | HHI.PR ---
Subjective History of Present Illness Patient condition worsen today got more SOB/ Wheezing. Diabetes mellitis On Levemir to 20 units BID. Continue with metformin 1000 mg PO BID. Check Lab in AM, Discussed with patient at bed side. . Leukocytosis monitoring, have pressure ulcer at both buttock area stage 1. Started on solumerdol 40 mg IV BID and Duoneb neublization every 3 hrs. Patient going for endoscopy. Review of Systems Constitutional Constitutional: Fatigue, Weakness Pulmonary Respiratory: Coughing, Shortness of Breath, Wheezing Cardiology CV Remarks edema. Integumentary Skin: Wounds Skin Remarks Pressure wound at both buttock area. Allergic/Immunologic Allergic/Immunologic: Asthma Vitals/Results Vital Signs Vital Signs Date Time Temp Pulse Resp B/P (MAP) Pulse Ox O2 Delivery O2 Flow Rate FiO2 01/27/18 08:00 Room Air 01/27/18 08:00 97.7 94 16 121/80 (94) 97 01/27/18 07:30 95 21 01/27/18 04:00 97.4 97 18 125/83 (97) 97 01/27/18 03:53 89 01/27/18 00:00 97.9 104 18 138/78 (98) 97 01/26/18 23:50 104 01/26/18 20:07 107 01/26/18 20:00 Room Air 01/26/18 20:00 97.9 107 20 119/72 (88) 98 01/26/18 16:20 97 21 01/26/18 16:00 Room Air 01/26/18 16:00 102 01/26/18 16:00 98.3 112 22 114/73 (87) 95 CBC/BMP: 01/26/18 0435 01/26/18 0435 Physical Exam General General Appearance: Well Developed, Well Nourished, Anxious Appearance Remarks Acute respiratory distress mild. Eyes Eye Exam: Pupils Equal, Pupils Reactive, Sclera White, Extraocular Movement Intact Throat Throat Remarks Oral Thrush. Neck Neck Exam: Neck Supple, Trachea Midline Pulmonary Resp Exam: Diminished Breath Sounds, Labored Resp Remarks Bilateral wheezing and crackles. Cardiology CV Exam: Normal Sinus Rhythm, Tachycardia Gastrointestinal/Abdomen GI Exam: Soft, Non-Tender, Bowel Sounds Present, Distended Musculoskeletal MS Exam: Joints Intact Integumentary Skin Exam: Dry Skin Remarks Pressure wound at both buttock area. Extremeties Extremities Exam: Moderate Edema, Pitting Edema Neurologic Neuro Exam: Alert, Awake, Oriented, Moving All Extremities, No Focal Deficits Psychiatric Psych Exam: Appropriate Responses VTE Prophylaxis VTE Remarks Eliquis PUD Prophylasis PUD Prophylaxis: Protonix Assessment/Plan Assessment/Plan ASSESSMENT AND PLAN: This is a 52-year-old male who came to the ER, diagnosed with: 1. Acute respiratory failure secondary to chronic obstructive pulmonary disease/asthma exacerbation. The patient is on DuoNeb nebulization every 3 hrs. The patient also started on solumedrol 40 mg IV BID. The patient is also on Symbicort inhaler, Singulair 10 mg P.O. daily. Pulmonary input noted. Further recommendation per pulmonary. 2. History of COPD/asthma. Continue home medication. 3. History of benign prostatic hypertrophy. Continue with Flomax 0.4 mg p.o. daily. 4. History of hyperlipidemia. Continue with Lipitor 40 mg p.o. daily. 5. Diabetes mellitus. ADA 1800 calorie diet. NovoLog low dose sliding scale. Check blood sugar with meals and at bedtime. Continue with Metformin 1000 mg twice a day. We will monitor blood sugar closely. on Levemir 20 units BID will monitor sugar. 6. History of deep venous thrombosis and pulmonary embolism. The patient on Eliquis 5 mg twice a day. 7. History of hypertension. Continue with diltiazem 360 mg p.o. daily. 8. Iron deficiency anemia. The patient is on ferrous sulfate 325 mg twice a day. 9. Leg edema and generalized edema. The patient is on Lasix 40 mg daily. 10. Anxiety. Continue lorazepam 0.5 mg twice a day. 11. Gastroesophageal reflux disease. Protonix 40 mg p.o. daily. 12. Depression. Continue with Paxil 20 mg p.o. daily. 13. History of oral thrush. The patient is on nystatin 5 mL 4 times a day. 14. Deep venous thrombosis prophylaxis, Eliquis 5 mg twice a day. 15. Gastrointestinal prophylaxis, Protonix 40 mg p.o. daily. 16. Renal Insufficency on Diuretic. better. 17. Leukocytosis monitoring. 18. Hypokalemia resolved. 19. Stage 1 Pressure wound at both buttock area getting treatment. 20. Leg edema on Lasix to 40 mg IV BID. Leg swelling and pain checked venous doppler of lower extremities... negative for DVT. 21. Diarrhea watery checked stool for C- Diff was negative ..better now. 22. Abdominal distension abdominal x- ray shows nothing acute GI Seen the patient getting endoscopy. Check CBC, CMP in the morning. We are going to manage the patient on a daily basis and make recommendations on daily basis. Discussed Condition with: Patient Myron Woodward MD January 27, 2018 12:04
[2018-01-27] MEDS ORDERED: *RESP: ALBUTEROL 2.5 MG/3 ML NEB (PRN) PERIprocedural Use ONLY NEB ONE (16:13)
[2018-01-27] MEDS ORDERED: DO NOT ADM ANY ANTICOAGULANT DRUGS PRN (17:13)
--- NOTE | 2018-01-27 17:13 | PD.PROCEDR ---
GI Procedure PROCEDURE PERFORMED Incomplete colonoscopy to the sigmoid very poor prep INDICATION FOR PROCEDURE Diarrhea, constipation, abdominal distention and bloating PROCEDURE: The procedure, risks and benefits were discussed with Patient/POA and informed consent was obtained. Anesthesia sedated Patient with Diprivan. Patient was placed in the left lateral decubitus position. Colonoscopy: The Pentax videoscope was introduced through the rectum and advanced to sigmoid. Retroflexion was performed in the rectum. Colonic prep was very poor FINDINGS: This was an incomplete colonoscopy what little of his colonic mucosa that was seen was unremarkable ESTIMATED BLOOD LOSS: None SPECIMENS REMOVED: None COMPLICATIONS: None IMPRESSION: Incomplete colonoscopy PLAN: Repeat colonoscopy tomorrow Ifeanyi Walters MD January 27, 2018 17:13
[2018-01-27] MEDS ORDERED: PEG (High)/E-LYTE SOLN 4000 ML BTL PO ONE (17:30)
[2018-01-27] MEDS: ATORVASTATIN 40 MG TAB PO SCH (21:26)
[2018-01-27] MEDS: MONTELUKAST SODIUM 10 MG TAB PO SCH (21:27)
[2018-01-28] VITALS (14 sets, daily range): BP systolic 118–158; BP diastolic 68–88; PULSE 89–110; RESP 16–20; TEMP 97.3–98.1; O2SAT 96–99
[2018-01-28] MEDS: RESP: ALBUTEROL 2.5 MG/3 ML NEB (SCH) INH ×8 (01:43→22:31)
[2018-01-28] MEDS: FUROSEMIDE 40 MG/4 ML VIAL IV SCH ×2 (06:26→17:31)
[2018-01-28 07:46] LABS: AUTOMATED NEUTROPHIL # 6.2 TH/MM3 (1.8-7.7); BASOPHIL % 0.2 % (0.0-2.0); HEMATOCRIT 35.1 % (39.0-51.0); HEMOGLOBIN 11.8 GM/DL (13.0-17.0); LYMPH % 6.8 % (9.0-44.0); LYMPHOCYTE # 0.5 TH/MM3 (1.0-4.8); MEAN CORPUSCULAR HEMOGLOBIN 29.9 PG (27.0-34.0); MEAN CORPUSCULAR HGB CONC 33.6 % (32.0-36.0); MEAN PLATELET VOLUME 6.9 FL (7.0-11.0); MONO % 3.4 % (0.0-8.0); MONOCYTE # 0.2 TH/MM3 (0-0.9); NEUT % 89.6 % (16.0-70.0); PLATELET COUNT 158 TH/MM3 (150-450); RED BLOOD COUNT 3.94 MIL/MM3 (4.50-5.90); RED CELL DISTRIBUTION WIDTH 18.5 % (11.6-17.2); WHITE BLOOD COUNT 6.9 TH/MM3 (4.0-11.0)
[2018-01-28] MEDS: INSULIN ASPART SUPPLEMENTAL SCALE SQ SCH ×4 (08:00→21:38)
[2018-01-28 08:17] LABS: ALBUMIN 3.2 GM/DL (3.4-5.0); ALT (GPT) 92 U/L (12-78); AST (GOT) 23 U/L (15-37); BICARBONATE 26.9 MEQ/L (21.0-32.0); BLOOD UREA NITROGEN 10 MG/DL (7-18); CALCIUM 7.8 MG/DL (8.5-10.1); CHLORIDE 103 MEQ/L (98-107); CREATININE 0.64 MG/DL (0.60-1.30); GLOMERULAR FILTRATION RATE 131 ML/MIN (>89); GLUCOSE,RANDOM 183 MG/DL (74-106); SODIUM (NA) 140 MEQ/L (136-145)
[2018-01-28 08:19] LABS: ALKALINE PHOSPHATASE 79 U/L (45-117); TOTAL BILIRUBIN ADULT 0.5 MG/DL (0.2-1.0); TOTAL PROTEIN 5.7 GM/DL (6.4-8.2)
[2018-01-28] MEDS: SODIUM CHLORIDE 0.9% FLUSH 10 ML FLUSH IV FLUSH SCH ×2 (09:45→21:33)
[2018-01-28] MEDS: methylPREDNISolone SOD SUCC 40 MG/1 ML VIAL IV PUSH SCH (09:45)
[2018-01-28] MEDS: BUDESONIDE-FORMOTEROL 160/4.5 MCG INHALER INH SCH ×2 (09:46→21:33)
[2018-01-28] MEDS: NYSTATIN SUSP 500,000 U/5 ML CUP SWISH-SWAL SCH ×4 (09:46→21:37)
[2018-01-28] MEDS: guaiFENesin/DEXTROMETHORPHAN 200 MG/20 MG/10 ML CUP PO SCH ×4 (09:46→21:37)
[2018-01-28 10:03] LABS: BANDS 4 % (0-6); CORRECTED NUCLEATED RBC 1 /100 WBC (0-0); LYMPHOCYTES 11 % (9-44); MONOCYTES 5 % (0-8); MYELOCYTES 5 % (0-0); NEUTROPHIL # MANUAL DIFF 5.8 TH/MM3 (1.8-7.7); NUCLEATED RED BLOOD CELL 1 (0-0); POLYS (SEG NEUTROPHILS) 75 % (16-70)
[2018-01-28 10:04] LABS: ACANTHOCYTES 1+ (NORMAL); OVALOCYTES 1+ (NORMAL)
--- NOTE | 2018-01-28 11:07 | HHI.PR ---
Subjective History of Present Illness Patient still have SOB/ Wheezing. but better than yesterday, Diabetes mellitis decrease Levemir to 20 units BID. Continue with metformin 1000 mg PO BID. Check Lab in AM, Discussed with patient at bed side. . Leukocytosis monitoring, have pressure ulcer at both buttock area stage 1. Started on Prednisone 20 mg PO BID and Duoneb neublization every 3 hrs. s/p endoscopy. ...shows Ghada esophagitis, Reflux esophagitis, Irregular Z line, Gastritis, Colon polyp Awaiting biopsies, Nystatin swish and swallow Continue PPI Colonoscopy in 3 years. Review of Systems Constitutional Constitutional: Fatigue, Weakness Pulmonary Respiratory: Coughing, Shortness of Breath, Wheezing Cardiology CV Remarks edema. Integumentary Skin: Wounds Skin Remarks Pressure wound at both buttock area. Allergic/Immunologic Allergic/Immunologic: Asthma Vitals/Results Vital Signs Vital Signs Date Time Temp Pulse Resp B/P (MAP) Pulse Ox O2 Delivery O2 Flow Rate FiO2 01/28/18 08:14 96 21 01/28/18 08:05 97.4 107 17 145/70 (95) 99 01/28/18 04:27 99 01/28/18 04:04 89 01/28/18 04:00 97.7 110 16 127/72 (90) 97 01/28/18 01:45 98 01/28/18 00:02 101 01/28/18 00:00 Room Air 01/28/18 00:00 98.1 100 18 150/68 (95) 97 01/27/18 22:24 99 01/27/18 20:00 Room Air 01/27/18 20:00 97.7 108 16 108/69 (82) 97 01/27/18 19:40 107 01/27/18 19:26 98 01/27/18 17:30 80 12 101/66 (78) 94 Room Air 01/27/18 17:21 97.9 84 12 117/70 (86) 92 Room Air 01/27/18 15:45 97.9 72 18 129/77 (94) 96 01/27/18 12:04 85 01/27/18 12:00 Room Air 01/27/18 12:00 98.0 93 18 124/75 (91) 97 CBC/BMP: 01/28/18 0440 01/28/18 0440 Lab Results Laboratory Tests Test 01/28/18 04:40 White Blood Count 6.9 TH/MM3 Red Blood Count 3.94 MIL/MM3 Hemoglobin 11.8 GM/DL Hematocrit 35.1 % Mean Corpuscular Volume 89.0 FL Mean Corpuscular Hemoglobin 29.9 PG Mean Corpuscular Hemoglobin Concent 33.6 % Red Cell Distribution Width 18.5 % Platelet Count 158 TH/MM3 Mean Platelet Volume 6.9 FL Neutrophils (%) (Auto) 89.6 % Lymphocytes (%) (Auto) 6.8 % Monocytes (%) (Auto) 3.4 % Eosinophils (%) (Auto) 0.0 % Basophils (%) (Auto) 0.2 % Neutrophils # (Auto) 6.2 TH/MM3 Lymphocytes # (Auto) 0.5 TH/MM3 Monocytes # (Auto) 0.2 TH/MM3 Eosinophils # (Auto) 0.0 TH/MM3 Basophils # (Auto) 0.0 TH/MM3 CBC Comment AUTO DIFF Differential Total Cells Counted 100 Neutrophils % (Manual) 75 % Band Neutrophils % 4 % Lymphocytes % 11 % Monocytes % 5 % Neutrophils # (Manual) 5.8 TH/MM3 Myelocytes 5 % Nucleated Red Blood Cells 1 /100 WBC Differential Comment FINAL DIFF MANUAL Platelet Estimate NORMAL Platelet Morphology Comment NORMAL Ovalocytes 1+ Acanthocytes 1+ Blood Urea Nitrogen 10 MG/DL Creatinine 0.64 MG/DL Random Glucose 183 MG/DL Total Protein 5.7 GM/DL Albumin 3.2 GM/DL Calcium Level 7.8 MG/DL Alkaline Phosphatase 79 U/L Aspartate Amino Transf (AST/SGOT) 23 U/L Alanine Aminotransferase (ALT/SGPT) 92 U/L Total Bilirubin 0.5 MG/DL Sodium Level 140 MEQ/L Potassium Level 3.7 MEQ/L Chloride Level 103 MEQ/L Carbon Dioxide Level 26.9 MEQ/L Anion Gap 10 MEQ/L Estimat Glomerular Filtration Rate 131 ML/MIN Physical Exam General General Appearance: Well Developed, Well Nourished, Anxious Appearance Remarks Acute respiratory distress mild. Eyes Eye Exam: Pupils Equal, Pupils Reactive, Sclera White, Extraocular Movement Intact Throat Throat Remarks Oral Thrush. Neck Neck Exam: Neck Supple, Trachea Midline Pulmonary Resp Exam: Diminished Breath Sounds, Labored Resp Remarks Bilateral wheezing and crackles. Cardiology CV Exam: Normal Sinus Rhythm, Tachycardia Gastrointestinal/Abdomen GI Exam: Soft, Non-Tender, Bowel Sounds Present, Distended Musculoskeletal MS Exam: Joints Intact Integumentary Skin Exam: Dry Skin Remarks Pressure wound at both buttock area. Extremeties Extremities Exam: Moderate Edema, Pitting Edema Neurologic Neuro Exam: Alert, Awake, Oriented, Moving All Extremities, No Focal Deficits Psychiatric Psych Exam: Appropriate Responses VTE Prophylaxis VTE Remarks Eliquis PUD Prophylasis PUD Prophylaxis: Protonix Assessment/Plan Assessment/Plan ASSESSMENT AND PLAN: This is a 52-year-old male who came to the ER, diagnosed with: 1. Acute respiratory failure secondary to chronic obstructive pulmonary disease/asthma exacerbation. The patient is on DuoNeb nebulization every 3 hrs. The patient started on Prednisone 20 mg PO BID. The patient is also on Symbicort inhaler, Singulair 10 mg P.O. daily. Pulmonary input noted. Further recommendation per pulmonary. 2. History of COPD/asthma. Continue home medication. 3. History of benign prostatic hypertrophy. Continue with Flomax 0.4 mg p.o. daily. 4. History of hyperlipidemia. Continue with Lipitor 40 mg p.o. daily. 5. Diabetes mellitus. ADA 1800 calorie diet. NovoLog low dose sliding scale. Check blood sugar with meals and at bedtime. Continue with Metformin 1000 mg twice a day. We will monitor blood sugar closely. on Levemir 20 units BID will monitor sugar. 6. History of deep venous thrombosis and pulmonary embolism. The patient on Eliquis 5 mg twice a day. 7. History of hypertension. Continue with diltiazem 360 mg p.o. daily. 8. Iron deficiency anemia. The patient is on ferrous sulfate 325 mg twice a day. 9. Leg edema and generalized edema. The patient is on Lasix 40 mg daily. 10. Anxiety. Continue lorazepam 0.5 mg twice a day. 11. Gastroesophageal reflux disease. Protonix 40 mg p.o. daily. 12. Depression. Continue with Paxil 20 mg p.o. daily. 13. History of oral thrush. The patient is on nystatin 5 mL 4 times a day. 14. Deep venous thrombosis prophylaxis, Eliquis 5 mg twice a day. 15. Gastrointestinal prophylaxis, Protonix 40 mg p.o. daily. 16. Renal Insufficency on Diuretic. better. 17. Leukocytosis monitoring. 18. Hypokalemia resolved. 19. Stage 1 Pressure wound at both buttock area getting treatment. 20. Leg edema on Lasix to 40 mg IV BID. Leg swelling and pain checked venous doppler of lower extremities... negative for DVT. 21. Diarrhea watery checked stool for C- Diff was negative ..better now. 22. Abdominal distension abdominal x- ray shows nothing acute GI Seen the patient s/p endoscopy. ...shows Ghada esophagitis, Reflux esophagitis, Irregular Z line, Gastritis, Colon polyp Awaiting biopsies, Nystatin swish and swallow Continue PPI Colonoscopy in 3 years. Check CBC, CMP in the morning. We are going to manage the patient on a daily basis and make recommendations on daily basis. Discussed Condition with: Patient Myron Woodward MD January 28, 2018 11:07
[2018-01-28] MEDS ORDERED: LIDOCAINE HCL 1% PF 5 ML SYRINGE OTHER ONE (12:00)
[2018-01-28] MEDS ORDERED: PROPOFOL 200 MG/20 ML AMP IV ONE (12:00)
--- NOTE | 2018-01-28 13:23 | PD.PROCEDR ---
GI Procedure PROCEDURE PERFORMED EGD with biopsy followed by colonoscopy with snare polypectomy INDICATION FOR PROCEDURE Diarrhea, abdominal bloating, history of constipation PROCEDURE: The procedure, risks and benefits were discussed with Patient/POA and informed consent was obtained. Anesthesia sedated Patient with Diprivan. Patient was placed in the left lateral decubitus position. EGD: The Pentax videoscope was introduced through the oropharynx and advanced to the second portion of the duodenum under direct visualization. Retroflexion was performed in the stomach. FINDINGS: The esophagus there was an exudate throughout the esophagus suggestive of Ghada esophagitis there was distal esophageal mucosal erythema suggestive of esophagitis possibly from reflux and the Z line was irregular this was biopsied Stomach there was patchy erythema in the antrum no ulcerations no erosions no blood or bleeding antral biopsies were taken for further evaluation the rest of the stomach was unremarkable The duodenum this was normal random biopsies were taken for further evaluation Colonoscopy: The Pentax videoscope was introduced through the rectum and advanced to cecum where the ileocecal valve and appendiceal orifice were identified. Retroflexion was performed in the rectum. Colonic prep was fair to poor FINDINGS: Colonic withdrawal time greater than 6 minutes. As the scope was slowly withdrawn colonic mucosa was carefully inspected the patient was noted to have a small colon polyp proximal transverse colon this was removed using cold snare technique colonic examination was otherwise unremarkable throughout retroflexion was unremarkable so his rectal examination ESTIMATED BLOOD LOSS: None SPECIMENS REMOVED: Esophageal, gastric, duodenal, and colon biopsies COMPLICATIONS: None IMPRESSION: Ghada esophagitis Reflux esophagitis Irregular Z line Gastritis Colon polyp PLAN: Await biopsies Nystatin swish and swallow Continue PPI Colonoscopy in 3 years Continue with present supportive care Monitor labs Ifeanyi Walters MD January 28, 2018 13:23
[2018-01-28] MEDS: DILTIAZEM-CD 180 MG CAP ER PO SCH (14:19)
[2018-01-28] MEDS: FERROUS SULFATE 325 MG (65 MG ELEMENTAL IRON) TAB PO SCH ×2 (14:19→21:36)
[2018-01-28] MEDS: metFORMIN HCL 500 MG TAB PO SCH ×2 (14:19→17:31)
[2018-01-28] MEDS: PARoxetine HCL 20 MG TAB PO SCH (14:19)
[2018-01-28] MEDS: LISINOPRIL 5 MG TAB PO SCH ×2 (14:20→21:35)
[2018-01-28] MEDS: TAMSULOSIN HCL 0.4 MG CAP PO SCH (14:20)
[2018-01-28] MEDS: DOCUSATE SODIUM 50 MG/SENNA 8.6 MG TAB PO SCH ×2 (14:20→21:34)
[2018-01-28] MEDS: PANTOPRAZOLE SOD 40 MG DELAYED RELEASE TAB PO SCH (14:20)
[2018-01-28] MEDS: LORazepam 0.5 MG TAB PO SCH ×2 (14:21→21:34)
[2018-01-28] MEDS: POTASSIUM CHLORIDE 20 MEQ CONTROLLED RELEASE TAB PO SCH ×2 (14:21→21:34)
[2018-01-28] MEDS: APIXABAN 5 MG TABLET PO SCH ×2 (14:33→21:34)
[2018-01-28] MEDS: INSULIN DETEMIR 100 UNITS/ML VIAL SQ SCH ×2 (14:34→21:38)
--- NOTE | 2018-01-28 17:05 | HHI.PR ---
Subjective Remarks Awake, Less SOB today Objective Vital Signs Date Time Temp Pulse Resp B/P (MAP) Pulse Ox O2 Delivery O2 Flow Rate FiO2 01/28/18 08:14 96 21 01/28/18 08:05 97.4 107 17 145/70 (95) 99 01/28/18 04:27 99 01/28/18 04:04 89 01/28/18 04:00 97.7 110 16 127/72 (90) 97 01/28/18 01:45 98 01/28/18 00:02 101 01/28/18 00:00 Room Air 01/28/18 00:00 98.1 100 18 150/68 (95) 97 01/27/18 22:24 99 01/27/18 20:00 Room Air 01/27/18 20:00 97.7 108 16 108/69 (82) 97 01/27/18 19:40 107 01/27/18 19:26 98 01/27/18 17:30 80 12 101/66 (78) 94 Room Air 01/27/18 17:21 97.9 84 12 117/70 (86) 92 Room Air I/O 01/27/18 01/27/18 01/27/18 01/28/18 01/28/18 01/28/18 07:00 15:00 23:00 07:00 15:00 23:00 Intake Total 0 ml 100 ml 240 ml 600 ml Output Total 450 ml 300 ml 2100 ml Balance -450 ml -200 ml -1860 ml 600 ml Intake Oral 0 ml 240 ml Other 100 ml 600 ml Output Urine Total 450 ml 300 ml 2100 ml # Voids 2 6 # Bowel Movements 7 6 3 Result Diagram: 01/28/1843901/28/18 0440 Objective Remarks GENERAL: alert, awake, no distress SKIN: Warm and dry. HEAD: Atraumatic. Normocephalic. NECK: Trachea midline. No JVD. CARDIOVASCULAR: Regular rate and rhythm. RESPIRATORY: No accessory muscle use. WHEEZING BILATERALY to auscultation improved. Breath sounds equal bilaterally. No Supplemental O2 GASTROINTESTINAL: Abdomen soft, non-tender, nondistended. Hepatic and splenic margins not palpable. MUSCULOSKELETAL: Extremities without clubbing, cyanosis, or edema. No obvious deformities. NEUROLOGICAL: Awake and alert. No obvious cranial nerve deficits. Motor grossly within normal limits. Five out of 5 muscle strength in the arms and legs. Normal speech. PSYCHIATRIC: Appropriate mood and affect; insight and judgment normal. Assessment and Plan Assessment and Plan ass: asthma exacerbation - DM plan O2/ as needed BRONCHODILATORS INCREASE ACTIVITY HOME AM IF ALL WELL Mary Hernandez MD January 28, 2018 17:05
[2018-01-28] MEDS ORDERED: NYSTATIN SUSP 500,000 U/5 ML CUP SWISH-SWAL SCH (18:00)
[2018-01-28] MEDS: ATORVASTATIN 40 MG TAB PO SCH (21:34)
[2018-01-28] MEDS: MONTELUKAST SODIUM 10 MG TAB PO SCH (21:35)
[2018-01-28] MEDS: predniSONE 20 MG TAB PO SCH (21:36)
[2018-01-29] VITALS (11 sets, daily range): BP systolic 119–136; BP diastolic 66–86; PULSE 92–127; RESP 18–21; TEMP 98–98.4; O2SAT 95–98
[2018-01-29] MEDS: RESP: ALBUTEROL 2.5 MG/3 ML NEB (SCH) INH ×7 (03:15→21:46)
[2018-01-29 05:06] LABS: AUTOMATED NEUTROPHIL # 6.1 TH/MM3 (1.8-7.7); BASOPHIL % 0.2 % (0.0-2.0); EOSINOPHIL % 0.1 % (0.0-4.0); HEMATOCRIT 32.2 % (39.0-51.0); LYMPH % 7.7 % (9.0-44.0); LYMPHOCYTE # 0.6 TH/MM3 (1.0-4.8); MEAN CELL VOLUME 88.3 FL (80.0-100.0); MEAN CORPUSCULAR HEMOGLOBIN 30.1 PG (27.0-34.0); MEAN PLATELET VOLUME 6.7 FL (7.0-11.0); MONO % 7.9 % (0.0-8.0); MONOCYTE # 0.6 TH/MM3 (0-0.9); NEUT % 84.1 % (16.0-70.0); PLATELET COUNT 175 TH/MM3 (150-450); RED BLOOD COUNT 3.65 MIL/MM3 (4.50-5.90); RED CELL DISTRIBUTION WIDTH 18.5 % (11.6-17.2); WHITE BLOOD COUNT 7.2 TH/MM3 (4.0-11.0)
[2018-01-29 05:24] LABS: AST (GOT) 29 U/L (15-37); BICARBONATE 26.3 MEQ/L (21.0-32.0); BLOOD UREA NITROGEN 14 MG/DL (7-18); CALCIUM 8.2 MG/DL (8.5-10.1); CHLORIDE 102 MEQ/L (98-107); GLOMERULAR FILTRATION RATE 88 ML/MIN (>89); GLUCOSE,RANDOM 210 MG/DL (74-106); SODIUM (NA) 138 MEQ/L (136-145)
[2018-01-29 05:29] LABS: ALKALINE PHOSPHATASE 87 U/L (45-117); ALT (GPT) 88 U/L (12-78); TOTAL BILIRUBIN ADULT 0.5 MG/DL (0.2-1.0); TOTAL PROTEIN 5.3 GM/DL (6.4-8.2)
[2018-01-29] MEDS: FUROSEMIDE 40 MG/4 ML VIAL IV SCH ×2 (06:51→18:00)
[2018-01-29 07:45] LABS: BANDS 2 % (0-6); CORRECTED NUCLEATED RBC 5 /100 WBC (0-0); LYMPHOCYTES 6 % (9-44); METAMYELOCYTES 1 % (0-1); MONOCYTES 5 % (0-8); MYELOCYTES 2 % (0-0); NEUTROPHIL # MANUAL DIFF 6.4 TH/MM3 (1.8-7.7); NUCLEATED RED BLOOD CELL 5 (0-0); POLYS (SEG NEUTROPHILS) 83 % (16-70); PROMYELOCYTES 1 % (0-0)
[2018-01-29] MEDS: BUDESONIDE-FORMOTEROL 160/4.5 MCG INHALER INH SCH ×2 (09:00→23:10)
[2018-01-29] MEDS: NYSTATIN SUSP 500,000 U/5 ML CUP SWISH-SWAL SCH ×4 (10:23→22:41)
[2018-01-29] MEDS: guaiFENesin/DEXTROMETHORPHAN 200 MG/20 MG/10 ML CUP PO SCH ×4 (10:23→22:41)
[2018-01-29] MEDS: PARoxetine HCL 20 MG TAB PO SCH (10:24)
[2018-01-29] MEDS: DILTIAZEM-CD 180 MG CAP ER PO SCH (10:24)
[2018-01-29] MEDS: DOCUSATE SODIUM 50 MG/SENNA 8.6 MG TAB PO SCH ×2 (10:24→21:00)
[2018-01-29] MEDS: metFORMIN HCL 500 MG TAB PO SCH ×2 (10:24→18:00)
[2018-01-29] MEDS: POTASSIUM CHLORIDE 20 MEQ CONTROLLED RELEASE TAB PO SCH ×2 (10:24→22:39)
[2018-01-29] MEDS: FERROUS SULFATE 325 MG (65 MG ELEMENTAL IRON) TAB PO SCH ×2 (10:24→22:40)
[2018-01-29] MEDS: LISINOPRIL 5 MG TAB PO SCH ×2 (10:24→22:40)
[2018-01-29] MEDS: LORazepam 0.5 MG TAB PO SCH ×2 (10:24→22:41)
[2018-01-29] MEDS: APIXABAN 5 MG TABLET PO SCH ×2 (10:25→22:41)
[2018-01-29] MEDS: INSULIN ASPART SUPPLEMENTAL SCALE SQ SCH ×4 (10:25→23:12)
[2018-01-29] MEDS: PANTOPRAZOLE SOD 40 MG DELAYED RELEASE TAB PO SCH (10:25)
[2018-01-29] MEDS: SODIUM CHLORIDE 0.9% FLUSH 10 ML FLUSH IV FLUSH SCH ×2 (10:25→22:42)
[2018-01-29] MEDS: predniSONE 20 MG TAB PO SCH ×2 (10:25→22:41)
[2018-01-29] MEDS: TAMSULOSIN HCL 0.4 MG CAP PO SCH (10:26)
[2018-01-29] MEDS: INSULIN DETEMIR 100 UNITS/ML VIAL SQ SCH ×2 (10:26→22:41)
--- NOTE | 2018-01-29 12:02 | HHI.PR ---
Subjective History of Present Illness Patient still have SOB/ Wheezing. but better than yesterday, Diabetes mellitis decrease Levemir to 20 units BID. Continue with metformin 1000 mg PO BID. Blood sugar above 200. Check Lab in AM, Discussed with patient at bed side. . Leukocytosis monitoring, have pressure ulcer at both buttock area stage 1. Started on Prednisone 20 mg PO BID and Duoneb neublization every 3 hrs. s/p endoscopy. ...shows Ghada esophagitis, Reflux esophagitis, Irregular Z line, Gastritis, Colon polyp Awaiting biopsies, Nystatin swish and swallow Continue PPI Colonoscopy in 3 years. Review of Systems Constitutional Constitutional: Fatigue, Weakness Pulmonary Respiratory: Coughing, Shortness of Breath, Wheezing Cardiology CV Remarks edema. Integumentary Skin: Wounds Skin Remarks Pressure wound at both buttock area. Allergic/Immunologic Allergic/Immunologic: Asthma Vitals/Results Vital Signs Vital Signs Date Time Temp Pulse Resp B/P (MAP) Pulse Ox O2 Delivery O2 Flow Rate FiO2 01/29/18 08:02 98.4 108 18 136/84 (101) 95 01/29/18 08:00 94 01/29/18 07:29 95 21 01/29/18 04:00 98.1 92 20 135/73 (93) 97 01/29/18 00:00 98.1 111 21 134/86 (102) 97 01/28/18 20:00 Room Air 01/28/18 20:00 98.1 105 20 118/76 (90) 96 01/28/18 19:58 97 Nasal Cannula 2.00 01/28/18 18:14 97.3 106 18 158/88 (111) 98 01/28/18 16:00 100 CBC/BMP: 01/29/18 0433 01/29/18 0433 Lab Results Laboratory Tests Test 01/29/18 04:33 White Blood Count 7.2 TH/MM3 Red Blood Count 3.65 MIL/MM3 Hemoglobin 11.0 GM/DL Hematocrit 32.2 % Mean Corpuscular Volume 88.3 FL Mean Corpuscular Hemoglobin 30.1 PG Mean Corpuscular Hemoglobin Concent 34.0 % Red Cell Distribution Width 18.5 % Platelet Count 175 TH/MM3 Mean Platelet Volume 6.7 FL Neutrophils (%) (Auto) 84.1 % Lymphocytes (%) (Auto) 7.7 % Monocytes (%) (Auto) 7.9 % Eosinophils (%) (Auto) 0.1 % Basophils (%) (Auto) 0.2 % Neutrophils # (Auto) 6.1 TH/MM3 Lymphocytes # (Auto) 0.6 TH/MM3 Monocytes # (Auto) 0.6 TH/MM3 Eosinophils # (Auto) 0.0 TH/MM3 Basophils # (Auto) 0.0 TH/MM3 CBC Comment AUTO DIFF Differential Total Cells Counted 100 Neutrophils % (Manual) 83 % Band Neutrophils % 2 % Lymphocytes % 6 % Monocytes % 5 % Neutrophils # (Manual) 6.4 TH/MM3 Metamyelocytes 1 % Myelocytes 2 % Promyelocytes 1 % Nucleated Red Blood Cells 5 /100 WBC Differential Comment FINAL DIFF MANUAL Platelet Estimate NORMAL Platelet Morphology Comment NORMAL Blood Urea Nitrogen 14 MG/DL Creatinine 0.90 MG/DL Random Glucose 210 MG/DL Total Protein 5.3 GM/DL Albumin 3.0 GM/DL Calcium Level 8.2 MG/DL Alkaline Phosphatase 87 U/L Aspartate Amino Transf (AST/SGOT) 29 U/L Alanine Aminotransferase (ALT/SGPT) 88 U/L Total Bilirubin 0.5 MG/DL Sodium Level 138 MEQ/L Potassium Level 4.1 MEQ/L Chloride Level 102 MEQ/L Carbon Dioxide Level 26.3 MEQ/L Anion Gap 10 MEQ/L Estimat Glomerular Filtration Rate 88 ML/MIN Physical Exam General General Appearance: Well Developed, Well Nourished, Anxious Appearance Remarks Acute respiratory distress mild. Eyes Eye Exam: Pupils Equal, Pupils Reactive, Sclera White, Extraocular Movement Intact Throat Throat Remarks Oral Thrush. Neck Neck Exam: Neck Supple, Trachea Midline Pulmonary Resp Exam: Diminished Breath Sounds, Labored Resp Remarks Bilateral wheezing and crackles. Cardiology CV Exam: Normal Sinus Rhythm, Tachycardia Gastrointestinal/Abdomen GI Exam: Soft, Non-Tender, Bowel Sounds Present, Distended Musculoskeletal MS Exam: Joints Intact Integumentary Skin Exam: Dry Skin Remarks Pressure wound at both buttock area. Extremeties Extremities Exam: Moderate Edema, Pitting Edema Neurologic Neuro Exam: Alert, Awake, Oriented, Moving All Extremities, No Focal Deficits Psychiatric Psych Exam: Appropriate Responses VTE Prophylaxis VTE Remarks Eliquis PUD Prophylasis PUD Prophylaxis: Protonix Assessment/Plan Assessment/Plan ASSESSMENT AND PLAN: This is a 52-year-old male who came to the ER, diagnosed with: 1. Acute respiratory failure secondary to chronic obstructive pulmonary disease/asthma exacerbation. The patient is on DuoNeb nebulization every 3 hrs. The patient started on Prednisone 20 mg PO BID. The patient is also on Symbicort inhaler, Singulair 10 mg P.O. daily. Pulmonary input noted. Further recommendation per pulmonary. 2. History of COPD/asthma. Continue home medication. 3. History of benign prostatic hypertrophy. Continue with Flomax 0.4 mg p.o. daily. 4. History of hyperlipidemia. Continue with Lipitor 40 mg p.o. daily. 5. Diabetes mellitus. ADA 1800 calorie diet. NovoLog low dose sliding scale. Check blood sugar with meals and at bedtime. Continue with Metformin 1000 mg twice a day. We will monitor blood sugar closely. on Levemir 20 units BID will monitor sugar. 6. History of deep venous thrombosis and pulmonary embolism. The patient on Eliquis 5 mg twice a day. 7. History of hypertension. Continue with diltiazem 360 mg p.o. daily. 8. Iron deficiency anemia. The patient is on ferrous sulfate 325 mg twice a day. 9. Leg edema and generalized edema. The patient is on Lasix 40 mg daily. 10. Anxiety. Continue lorazepam 0.5 mg twice a day. 11. Gastroesophageal reflux disease. Protonix 40 mg p.o. daily. 12. Depression. Continue with Paxil 20 mg p.o. daily. 13. History of oral thrush. The patient is on nystatin 5 mL 4 times a day. 14. Deep venous thrombosis prophylaxis, Eliquis 5 mg twice a day. 15. Gastrointestinal prophylaxis, Protonix 40 mg p.o. daily. 16. Renal Insufficency on Diuretic. better. 17. Leukocytosis monitoring. 18. Hypokalemia resolved. 19. Stage 1 Pressure wound at both buttock area getting treatment. 20. Leg edema on Lasix to 40 mg IV BID. Leg swelling and pain checked venous doppler of lower extremities... negative for DVT. 21. Diarrhea watery checked stool for C- Diff was negative ..better now. 22. Abdominal distension abdominal x- ray shows nothing acute GI Seen the patient s/p endoscopy. ...shows Ghada esophagitis, Reflux esophagitis, Irregular Z line, Gastritis, Colon polyp Awaiting biopsies, Nystatin swish and swallow Continue PPI Colonoscopy in 3 years. Check CBC, CMP in the morning. Possible discharge tomorrow AM. We are going to manage the patient on a daily basis and make recommendations on daily basis. Discussed Condition with: Patient Myron Woodward MD January 29, 2018 12:02
--- NOTE | 2018-01-29 13:29 | HHI.GIFU ---
Subjective Remarks Pt in bedside chair He is hopeful to go home tomorrow Denies nausea, vomiting, abdominal pain 1 BM since GI procedures yesterday Tolerating PO (Lillian Bradford) Objective Vitals I&O Vital Signs Date Time Temp Pulse Resp B/P (MAP) Pulse Ox O2 Delivery O2 Flow Rate FiO2 01/29/18 12:02 98.2 108 18 119/81 (94) 97 01/29/18 08:02 98.4 108 18 136/84 (101) 95 01/29/18 08:00 94 01/29/18 07:29 95 21 01/29/18 04:00 98.1 92 20 135/73 (93) 97 01/29/18 00:00 98.1 111 21 134/86 (102) 97 01/28/18 20:00 Room Air 01/28/18 20:00 98.1 105 20 118/76 (90) 96 01/28/18 19:58 97 Nasal Cannula 2.00 01/28/18 18:14 97.3 106 18 158/88 (111) 98 01/28/18 16:00 100 I/O 01/28/18 01/28/18 01/28/18 01/29/18 01/29/18 01/29/18 07:00 15:00 23:00 07:00 15:00 23:00 Intake Total 240 ml 600 ml 1200 ml Output Total 2100 ml 5000 ml Balance -1860 ml 600 ml -3800 ml Intake Oral 240 ml 1200 ml Other 600 ml Output Urine Total 2100 ml 5000 ml # Bowel Movements 3 1 Laboratory Laboratory Tests Test 01/29/18 04:33 White Blood Count 7.2 Red Blood Count 3.65 Hemoglobin 11.0 Hematocrit 32.2 Mean Corpuscular Volume 88.3 Mean Corpuscular Hemoglobin 30.1 Mean Corpuscular Hemoglobin Concent 34.0 Red Cell Distribution Width 18.5 Platelet Count 175 Mean Platelet Volume 6.7 Neutrophils (%) (Auto) 84.1 Lymphocytes (%) (Auto) 7.7 Monocytes (%) (Auto) 7.9 Eosinophils (%) (Auto) 0.1 Basophils (%) (Auto) 0.2 Neutrophils # (Auto) 6.1 Lymphocytes # (Auto) 0.6 Monocytes # (Auto) 0.6 Eosinophils # (Auto) 0.0 Basophils # (Auto) 0.0 CBC Comment AUTO DIFF Differential Total Cells Counted 100 Neutrophils % (Manual) 83 Band Neutrophils % 2 Lymphocytes % 6 Monocytes % 5 Neutrophils # (Manual) 6.4 Metamyelocytes 1 Myelocytes 2 Promyelocytes 1 Nucleated Red Blood Cells 5 Differential Comment FINAL DIFF MANUAL Platelet Estimate NORMAL Platelet Morphology Comment NORMAL Blood Urea Nitrogen 14 Creatinine 0.90 Random Glucose 210 Total Protein 5.3 Albumin 3.0 Calcium Level 8.2 Alkaline Phosphatase 87 Aspartate Amino Transf (AST/SGOT) 29 Alanine Aminotransferase (ALT/SGPT) 88 Total Bilirubin 0.5 Sodium Level 138 Potassium Level 4.1 Chloride Level 102 Carbon Dioxide Level 26.3 Anion Gap 10 Estimat Glomerular Filtration Rate 88 Date/Time Source Procedure Growth Status 12/31/17 09:00 Blood Peripheral Aerobic Blood Culture - Final NO GROWTH IN 5 DAYS Complete 12/31/17 09:00 Blood Peripheral Anaerobic Blood Culture - Final NO GROWTH IN 5 DAYS Complete 12/31/17 09:30 Nasal Aspirate Influenza Types A,B Antigen (STEFFANIE) - Final NEGATIVE FOR FLU A AND B ANTIGEN.... Complete Imaging Last Impressions Abdomen/Pelvis CT 01/24/18 0000 Signed Impressions: Service Date/Time: Wednesday, January 24, 2018 18:41 - CONCLUSION: 1. No dilated bowel loops to suggest obstruction. 2. Minimal stranding in the retroperitoneum bilaterally likely benign. Davion Carranza MD Abdomen X-Ray 01/24/18 0000 Signed Impressions: Service Date/Time: Wednesday, January 24, 2018 09:40 - CONCLUSION: Constipation. No dilated loops of small bowel. Adriel Thompson MD Lower Extremity Ultrasound 01/22/18 0000 Signed Impressions: Service Date/Time: January 09:42 - CONCLUSION: No evidence of DVT. No significant change. Tyler Mast MD Chest X-Ray 01/11/18 0000 Signed Impressions: Service Date/Time: Thursday, January 11, 2018 12:30 - CONCLUSION: No acute cardiopulmonary abnormality is identified. Adin Cheema MD Physical Exam HEENT: Normocephalic; atraumatic CHEST: Even/unlabored CARDIAC: RRR ABDOMEN: Distended, soft, nontender, bowel sounds active EXTREMITIES: No clubbing, cyanosis, or edema. SKIN: Normal; no rash; no jaundice. 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 (Lillian Bradford) Assessment and Plan Plan Assessment: - Diarrhea- pt states watery BMs for the past few days C. Diff stool negative. Normally has chronic constipation takes Miralax at home every other day. Abdomen flat & upright (01/24) --> Constipation. No dilated loops of small bowel. Colonoscopy (11/2016) revealed diverticulosis in the sigmoid and descending colon, diminutive polyp hepatic flexure, semisolid stool throughout the colon, internal hemorrhoids. Pathology revealed adenomatous polyp. CT on 01/24/18 negative for bowel obstruction, minimal stranding in the retroperitoneum bilaterally likely benign. - Abdominal swelling- pt reports this has been chronic for 3 years, denies any recent change in abdomen size but states the doctor has told him it seems to be increasing EGD (11/2016) revealed Normal duodenum, gastritis in the antrum, esophagitis in the distal esophagus, and hiatal hernia. Pathology revealed (gastric antrum) features suggestive of chemical gastropathy (gastroesophageal mucosal biopsy) extensive intestinal metaplasia, negative for dysplasia. 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 Abdomen is still distended but he states this is normal for him. He is agreeable to have colonoscopy while inpatient. EGD (01/28) --> Ghada esophagitis, reflux esophagitis, irregular Z line, gastritis Colonoscopy (01/28) --> Fair to poor prep. Small colon polyp proximal transverse colon Plan: - EGD/colon biopsy pending - Bowel regimen to prevent constipation - OK for anticoagulation - GI will sign off, please reconsult as needed - Have pt follow up with GI after DC Pt has been seen and examined by myself and Dr. Walters and this note is written on his behalf (Lillian Bradford) Physician Comments Patient seen and examined Agree with above Continue with current supportive care Monitor labs Patient follow-up with GI post discharge We will sign off (Ifeanyi Walters MD) Lillian Bradford January 29, 2018 13:29 Ifeanyi Walters MD January 29, 2018 22:11
--- NOTE | 2018-01-29 16:53 | HHI.PR ---
Subjective Remarks Awake, Less SOB today GLUCOSE HIGH Objective Vital Signs Date Time Temp Pulse Resp B/P (MAP) Pulse Ox O2 Delivery O2 Flow Rate FiO2 01/29/18 16:10 98.3 111 18 121/70 (87) 97 01/29/18 12:02 98.2 108 18 119/81 (94) 97 01/29/18 08:02 98.4 108 18 136/84 (101) 95 01/29/18 08:00 Room Air 01/29/18 08:00 94 01/29/18 07:29 95 21 01/29/18 04:00 98.1 92 20 135/73 (93) 97 01/29/18 00:00 98.1 111 21 134/86 (102) 97 01/28/18 20:00 Room Air 01/28/18 20:00 98.1 105 20 118/76 (90) 96 01/28/18 19:58 97 Nasal Cannula 2.00 01/28/18 18:14 97.3 106 18 158/88 (111) 98 I/O 01/28/18 01/28/18 01/28/18 01/29/18 01/29/18 01/29/18 07:00 15:00 23:00 07:00 15:00 23:00 Intake Total 240 ml 600 ml 1200 ml Output Total 2100 ml 5000 ml Balance -1860 ml 600 ml -3800 ml Intake Oral 240 ml 1200 ml Other 600 ml Output Urine Total 2100 ml 5000 ml # Bowel Movements 3 1 Result Diagram: 01/29/18 0433 01/29/18 0433 Objective Remarks GENERAL: alert, awake, no distress SKIN: Warm and dry. HEAD: Atraumatic. Normocephalic. NECK: Trachea midline. No JVD. CARDIOVASCULAR: Regular rate and rhythm. RESPIRATORY: No accessory muscle use. WHEEZING BILATERALY to auscultation improved. Breath sounds equal bilaterally. No Supplemental O2 GASTROINTESTINAL: Abdomen soft, non-tender, nondistended. Hepatic and splenic margins not palpable. MUSCULOSKELETAL: Extremities without clubbing, cyanosis, or edema. No obvious deformities. NEUROLOGICAL: Awake and alert. No obvious cranial nerve deficits. Motor grossly within normal limits. Five out of 5 muscle strength in the arms and legs. Normal speech. PSYCHIATRIC: Appropriate mood and affect; insight and judgment normal. Assessment and Plan Assessment and Plan ass: asthma exacerbation - DM plan O2/ as needed BRONCHODILATORS INCREASE ACTIVITY Mary Hernandez MD January 29, 2018 16:53
[2018-01-29] MEDS: MONTELUKAST SODIUM 10 MG TAB PO SCH (22:39)
[2018-01-29] MEDS: ATORVASTATIN 40 MG TAB PO SCH (22:40)
[2018-01-30] VITALS (7 sets, daily range): BP systolic 109–133; BP diastolic 57–87; PULSE 95–130; RESP 18–20; TEMP 97.4–98.2; O2SAT 95–99
[2018-01-30] MEDS: RESP: ALBUTEROL 2.5 MG/3 ML NEB (SCH) INH ×4 (00:08→07:47)
[2018-01-30] MEDS: FUROSEMIDE 40 MG/4 ML VIAL IV SCH (06:08)
[2018-01-30] MEDS: INSULIN ASPART SUPPLEMENTAL SCALE SQ SCH ×2 (08:00→12:00)
[2018-01-30] MEDS: INSULIN DETEMIR 100 UNITS/ML VIAL SQ SCH (09:00)
[2018-01-30] MEDS: SODIUM CHLORIDE 0.9% FLUSH 10 ML FLUSH IV FLUSH SCH (09:00)
--- NOTE | 2018-01-30 09:10 | HHI.PR ---
Subjective History of Present Illness Patient feel better SOB/ Wheezing. better. Discussed with patient at bed side. . Leukocytosis monitoring, have pressure ulcer at both buttock area stage 1. on Prednisone 20 mg PO BID and Duoneb neublization every 3 hrs. s/ p endoscopy. ...shows Ghada esophagitis, Reflux esophagitis, Irregular Z line, Gastritis, Colon polyp Awaiting biopsies, Nystatin swish and swallow Continue PPI Colonoscopy in 3 years. Ok to discharge home today. Review of Systems Constitutional Constitutional: Fatigue, Weakness Pulmonary Respiratory: Coughing, Shortness of Breath, Wheezing Cardiology CV Remarks edema. Integumentary Skin: Wounds Skin Remarks Pressure wound at both buttock area. Allergic/Immunologic Allergic/Immunologic: Asthma Vitals/Results Vital Signs Vital Signs Date Time Temp Pulse Resp B/P (MAP) Pulse Ox O2 Delivery O2 Flow Rate FiO2 01/30/18 08:02 97.9 112 18 133/78 (96) 95 01/30/18 07:49 97 01/30/18 04:00 98.0 95 20 123/63 (83) 96 01/30/18 00:00 97.4 102 20 109/57 (74) 99 01/29/18 21:48 98 21 01/29/18 20:00 127 01/29/18 20:00 Room Air 01/29/18 20:00 98.0 123 20 121/66 (84) 97 01/29/18 16:10 98.3 111 18 121/70 (87) 97 01/29/18 16:00 114 01/29/18 12:02 98.2 108 18 119/81 (94) 97 01/29/18 12:00 104 CBC/BMP: 01/29/18 0433 01/29/18 0433 Physical Exam General General Appearance: Well Developed, Well Nourished, Anxious Appearance Remarks Acute respiratory distress mild. Eyes Eye Exam: Pupils Equal, Pupils Reactive, Sclera White, Extraocular Movement Intact Throat Throat Remarks Oral Thrush. Neck Neck Exam: Neck Supple, Trachea Midline Pulmonary Resp Exam: Diminished Breath Sounds, Labored Resp Remarks Bilateral wheezing and crackles. Cardiology CV Exam: Normal Sinus Rhythm, Tachycardia Gastrointestinal/Abdomen GI Exam: Soft, Non-Tender, Bowel Sounds Present, Distended Musculoskeletal MS Exam: Joints Intact Integumentary Skin Exam: Dry Skin Remarks Pressure wound at both buttock area. Extremeties Extremities Exam: Moderate Edema, Pitting Edema Neurologic Neuro Exam: Alert, Awake, Oriented, Moving All Extremities, No Focal Deficits Psychiatric Psych Exam: Appropriate Responses VTE Prophylaxis VTE Remarks Eliquis PUD Prophylasis PUD Prophylaxis: Protonix Assessment/Plan Assessment/Plan ASSESSMENT AND PLAN: This is a 52-year-old male who came to the ER, diagnosed with: 1. Acute respiratory failure secondary to chronic obstructive pulmonary disease/asthma exacerbation. The patient is on DuoNeb nebulization every 3 hrs. The patient on Prednisone 20 mg PO BID. The patient is also on Symbicort inhaler, Singulair 10 mg P.O. daily. Pulmonary input noted. Further recommendation per pulmonary. 2. History of COPD/asthma. Continue home medication. 3. History of benign prostatic hypertrophy. Continue with Flomax 0.4 mg p.o. daily. 4. History of hyperlipidemia. Continue with Lipitor 40 mg p.o. daily. 5. Diabetes mellitus. ADA 1800 calorie diet. NovoLog low dose sliding scale. Check blood sugar with meals and at bedtime. Continue with Metformin 1000 mg twice a day. We will monitor blood sugar closely. on Levemir 20 units BID will monitor sugar. 6. History of deep venous thrombosis and pulmonary embolism. The patient on Eliquis 5 mg twice a day. 7. History of hypertension. Continue with diltiazem 360 mg p.o. daily. 8. Iron deficiency anemia. The patient is on ferrous sulfate 325 mg twice a day. 9. Leg edema and generalized edema. The patient is on Lasix 40 mg daily. 10. Anxiety. Continue lorazepam 0.5 mg twice a day. 11. Gastroesophageal reflux disease. Protonix 40 mg p.o. daily. 12. Depression. Continue with Paxil 20 mg p.o. daily. 13. History of oral thrush. The patient is on nystatin 5 mL 4 times a day. 14. Deep venous thrombosis prophylaxis, Eliquis 5 mg twice a day. 15. Gastrointestinal prophylaxis, Protonix 40 mg p.o. daily. 16. Renal Insufficency on Diuretic. better. 17. Leukocytosis monitoring. 18. Hypokalemia resolved. 19. Stage 1 Pressure wound at both buttock area getting treatment. 20. Leg edema on Lasix to 40 mg IV BID. Leg swelling and pain checked venous doppler of lower extremities... negative for DVT. 21. Diarrhea watery checked stool for C- Diff was negative ..better now. 22. Abdominal distension abdominal x- ray shows nothing acute GI Seen the patient s/p endoscopy. ...shows Ghada esophagitis, Reflux esophagitis, Irregular Z line, Gastritis, Colon polyp Awaiting biopsies, Nystatin swish and swallow Continue PPI Colonoscopy in 3 years. ok to discharge home with home health care today. f/u with PCP / Pulmonary/ GI 1 week. Discussed Condition with: Patient Myron Woodward MD January 30, 2018 09:10
[2018-01-30] MEDS: BUDESONIDE-FORMOTEROL 160/4.5 MCG INHALER INH SCH (09:58)
[2018-01-30] MEDS: NYSTATIN SUSP 500,000 U/5 ML CUP SWISH-SWAL SCH ×2 (09:59→13:00)
[2018-01-30] MEDS: POTASSIUM CHLORIDE 20 MEQ CONTROLLED RELEASE TAB PO SCH (09:59)
[2018-01-30] MEDS: guaiFENesin/DEXTROMETHORPHAN 200 MG/20 MG/10 ML CUP PO SCH ×2 (09:59→13:00)
[2018-01-30] MEDS: TAMSULOSIN HCL 0.4 MG CAP PO SCH (10:00)
[2018-01-30] MEDS: LISINOPRIL 5 MG TAB PO SCH (10:00)
[2018-01-30] MEDS: FERROUS SULFATE 325 MG (65 MG ELEMENTAL IRON) TAB PO SCH (10:00)
[2018-01-30] MEDS: APIXABAN 5 MG TABLET PO SCH (10:00)
[2018-01-30] MEDS: PARoxetine HCL 20 MG TAB PO SCH (10:00)
[2018-01-30] MEDS: DILTIAZEM-CD 180 MG CAP ER PO SCH (10:00)
[2018-01-30] MEDS: metFORMIN HCL 500 MG TAB PO SCH (10:00)
[2018-01-30] MEDS: predniSONE 20 MG TAB PO SCH (10:00)
[2018-01-30] MEDS: PANTOPRAZOLE SOD 40 MG DELAYED RELEASE TAB PO SCH (10:00)
[2018-01-30] MEDS: LORazepam 0.5 MG TAB PO SCH (10:00)
[2018-01-30] MEDS: DOCUSATE SODIUM 50 MG/SENNA 8.6 MG TAB PO SCH (10:00)
[2018-01-30 10:07] LABS: AUTOMATED NEUTROPHIL # 4.8 TH/MM3 (1.8-7.7); BASOPHIL % 0.1 % (0.0-2.0); HEMATOCRIT 36.9 % (39.0-51.0); HEMOGLOBIN 12.5 GM/DL (13.0-17.0); LYMPH % 10.3 % (9.0-44.0); LYMPHOCYTE # 0.6 TH/MM3 (1.0-4.8); MEAN CORPUSCULAR HEMOGLOBIN 29.9 PG (27.0-34.0); MEAN CORPUSCULAR HGB CONC 33.9 % (32.0-36.0); MEAN PLATELET VOLUME 7.1 FL (7.0-11.0); MONO % 8.2 % (0.0-8.0); MONOCYTE # 0.5 TH/MM3 (0-0.9); NEUT % 81.4 % (16.0-70.0); PLATELET COUNT 193 TH/MM3 (150-450); RED BLOOD COUNT 4.19 MIL/MM3 (4.50-5.90); RED CELL DISTRIBUTION WIDTH 19.4 % (11.6-17.2)
--- NOTE | 2018-01-30 10:17 | MD ---
cc: Myron Woodward MD DATE OF DISCHARGE: 01/30/2018 DISPOSITION: Okay to discharge the patient home. CONDITION AT THE TIME OF DISCHARGE: Satisfactory. ACTIVITY: As tolerated. DIET: Cardia diet, ADA 1800 calorie diet. ALLERGIES: DOXYCYCLINE, MEPERIDINE, MINOCYCLINE, TETRACYCLINE, TIGECYCLINE. DISCHARGE MEDICATIONS: Include: 1. Furosemide 40 mg twice a day. 2. Metformin 1000 mg twice a day. 3. Albuterol ProAir HFA 2 puffs inhalation every 4-6 hours. 4. Eliquis 5 mg twice a day. 5. Lipitor 40 mg p.o. daily. 6. Symbicort inhaler 160/4.5 two puff inhalation every 12 hours. 7. Diltiazem ER 360 mg p.o. daily. 8. Ferrous sulfate 325 mg p.o. b.i.d. 9. Lorazepam 0.5 mg twice a day. 10. Singulair 10 mg p.o. daily. 11. Protonix 40 mg daily. 12. Paxil 20 mg daily. 13. Potassium chloride 20 mEq p.o. b.i.d. 14. Prednisone 10 mg p.o. daily. 15. Flomax 0.4 mg p.o. daily. 16. Nystatin swish and swallow 5 mL q.i.d. FOLLOWUP: The patient is advised to follow up with PCP, GI, Cardiology and Pulmonary in 1 week. ADMITTING DIAGNOSES: Acute respiratory failure secondary to his chronic obstructive pulmonary disease exacerbation. DISCHARGE DIAGNOSES: 1. Acute respiratory failure, resolved. The patient is off BiPAP and on oxygen now. 2. History of chronic obstructive pulmonary disease or asthma, very severe. 3. History of benign prostatic hypertrophy. Continue with Flomax. 4. History of hyperlipidemia. Continue Lipitor 40 mg p.o. daily. 5. Diabetes mellitus. The patient's blood sugar was high because of the steroid higher doses he received during his hospital stay. Metformin increased from 500 twice a day to 1000 mg twice a day. 6. History of hypertension. Continue with Diltiazem 360 mg p.o. daily. 7. Iron deficiency anemia. Continue with ferrous sulfate. 8. Leg edema. The patient is on Lasix 40 mg twice a day, increased. 9. Anxiety. Lorazepam 0.5 mg twice a day. 10. Gastroesophageal reflux disease. Protonix 40 mg daily. 11. History of depression. The patient is on Paxil. 12. Oral thrush. The patient was given Nystatin during the hospital stay. HOSPITAL COURSE: This is a 52-year-old, very pleasant man with past medical history as dictated above, came to the ER with severe shortness of breath and wheezing and air hunger and labored breathing, diagnosed with severe COPD and asthma exacerbation. The patient was on BiPAP and admitted to the ICU critical care. The patient was critically ill and was in the ICU, almost about to be intubated, but eventually with BiPAP he improved. The patient was given IV Solu-Medrol, IV antibiotic and also patient was given DuoNeb nebulization every 3 hours. The patient was seen by the critical care doctor during the hospital stay. The patient also seen by food service substitute, Dr. Hernandez, and the patient's steroids were gradually tapered. The patient's blood sugar went high. The patient got Levemir insulin during the hospital stay. The patient also had a leukocytosis secondary to chronic obstructive pulmonary disease exacerbation and steroid. The patient's condition gradually improved. The patient had abdominal distention. GI consulted. He had upper and lower GI endoscopy done during the hospital stay and endoscopy finding includes candidal esophagitis, reflux esophagitis, irregular Z-line, gastritis, colon polyp. Biopsy was taken and advised to take nystatin swish and swallow, continue with PPI, which the patient was already on. The patient has very chronic, severe COPD and lung condition. The patient has a family history of lung transplant. 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 Abdominal x-ray was done, shows constipation, no dilated loops of small bowel. CT of the abdomen and pelvis was done, shows no dilated loops to suggest obstruction, minimal stranding in the retroperitoneum bilaterally, likely benign. The patient also had venous Doppler of lower extremities twice, which is negative for DVT. The patient has leg swelling. The patient's leg swelling got worse. The patient was given Lasix 40 mg IV twice a day during hospital stay. The patient had chest x-ray done, shows no acute pulmonary abnormality identified. Blood cultures were done x5 days, were negative. Influenza A and B negative. T He patient had a leukocytosis during the hospital stay. Initially the WBC count was 15.5. The maximum WBC count was 18.2 and it decreased down to at the time of discharge 7.2 WBC count. The patient also had anemia with a hemoglobin of 11.0. The patient also had a blood sugar around about 183 and 210 at the time of discharge. The patient's PT was 10.0, INR 1.0, APTT 21.8. The patient's urinalysis shows glucose and trace of ketones; no urinary tract infection. The patient's beta hydroxybutyrate was 0.19. The patient MRSA was negative. C. difficile toxin and antigen was negative. The patient had diarrhea during the hospital stay. C. difficile antigen was negative so Flagyl was discontinued. DISCHARGE: The patient was in a stable condition at the time of discharge. The patient discharged home with home health care. Further details in the medical record. Myron Woodward MD EA/ELPIDIO , 09:19 AM , 10:16 AM
[2018-01-30 10:38] LABS: AST (GOT) 28 U/L (15-37); CHLORIDE 95 MEQ/L (98-107); CREATININE 0.87 MG/DL (0.60-1.30); GLOMERULAR FILTRATION RATE 92 ML/MIN (>89); SODIUM (NA) 136 MEQ/L (136-145)
[2018-01-30 10:40] LABS: BANDS 5 % (0-6); LYMPHOCYTES 7 % (9-44); METAMYELOCYTES 1 % (0-1); MONOCYTES 8 % (0-8); MYELOCYTES 7 % (0-0); NEUTROPHIL # MANUAL DIFF 5.1 TH/MM3 (1.8-7.7); OVALOCYTES 1+ (NORMAL); POLYS (SEG NEUTROPHILS) 72 % (16-70)
[2018-01-30 10:41] LABS: POLYCHROMASIA 2.3 % (0.0-1.9)
[2018-01-30 10:47] LABS: ALBUMIN 3.6 GM/DL (3.4-5.0); ALKALINE PHOSPHATASE 104 U/L (45-117); ALT (GPT) 106 U/L (12-78); BICARBONATE 27.4 MEQ/L (21.0-32.0); BLOOD UREA NITROGEN 12 MG/DL (7-18); CALCIUM 8.6 MG/DL (8.5-10.1); GLUCOSE,RANDOM 214 MG/DL (74-106); TOTAL BILIRUBIN ADULT 0.6 MG/DL (0.2-1.0); TOTAL PROTEIN 6.3 GM/DL (6.4-8.2)
[2018-01-30] MEDS: RESP: ALBUTEROL 2.5 MG/3 ML NEB (PRN) INH (11:51)
--- NOTE | 2018-01-30 16:15 | HHI.FF ---
Face to Face Verification Diagnosis: (1) Respiratory failure, acute (2) Chronic obstructive pulmonary disease (3) Acute hypercapnic respiratory failure (4) History of pulmonary embolism (5) Hypertension (6) Hyperlipidemia (7) Acute asthma exacerbation (8) Wheezing (9) Hyperglycemia (10) Abdominal distension Physical Therapy Order: Evaluate and Treat, Improve ambulation Occupational Therapy Order: Evaluate and Treat Home Health Nursing Order: Medical education Signs/symptoms of disease process Diabetic education Medication education-adverse effect [place] Order: To Evaluate: Living conditions/environment I have seen patient Philip Plaza Sr Fariba on 01/30/18. My clinical findings support the need for the requested home health care services because: Ltd mobility - disease progression Patient has SOB Deconditioned w/ increased weakness Limited ability to care for self I certify that my clinical findings support that this patient is homebound because: Hx COPD- exertion dyspnea/weakness Unsafe to leave home unassisted Myron Woodward MD January 30, 2018 16:15
== END 2018-01-30 13:56 | disposition home health service (06) | DRG 189 ==
LOC: NEPC 08:42 → NEDA 10:41 → HCIS 13:03 → HIME 01-01 11:45 → N04B 01-14 16:42
PROVIDERS: ADMIT Family Medicine; ATTEND Family Medicine
PROC: 5A09457 Assistance with Respiratory Ventilation, 24-96 Consecutive Hours, Continuous Positive Airway Pressure (ICD-10-PCS; principal; 2017-12-31)
PROC: 0DJD8ZZ Inspection of Lower Intestinal Tract, Via Natural or Artificial Opening Endoscopic (ICD-10-PCS; 2018-01-27)
PROC: 0DB98ZX Excision of Duodenum, Via Natural or Artificial Opening Endoscopic, Diagnostic (ICD-10-PCS; 2018-01-28)
PROC: 0DB78ZX Excision of Stomach, Pylorus, Via Natural or Artificial Opening Endoscopic, Diagnostic (ICD-10-PCS; 2018-01-28)
PROC: 0DB38ZX Excision of Lower Esophagus, Via Natural or Artificial Opening Endoscopic, Diagnostic (ICD-10-PCS; 2018-01-28)
PROC: 0DBL8ZX Excision of Transverse Colon, Via Natural or Artificial Opening Endoscopic, Diagnostic (ICD-10-PCS; 2018-01-28)
DX: J96.01 Acute respiratory failure with hypoxia (principal); L89.311 Pressure ulcer of right buttock, stage 1; B37.0 Candidal stomatitis; B37.81 Candidal esophagitis; J44.1 Chronic obstructive pulmonary disease with (acute) exacerbation; J45.901 Unspecified asthma with (acute) exacerbation; L89.321 Pressure ulcer of left buttock, stage 1; K22.8 Other specified diseases of esophagus; E11.65 Type 2 diabetes mellitus with hyperglycemia; I10 Essential (primary) hypertension; E78.5 Hyperlipidemia, unspecified; Z96.641 Presence of right artificial hip joint; N40.0 Benign prostatic hyperplasia without lower urinary tract symptoms; M19.90 Unspecified osteoarthritis, unspecified site; F41.9 Anxiety disorder, unspecified; T38.0X5A Adverse effect of glucocorticoids and synthetic analogues, initial encounter; D72.829 Elevated white blood cell count, unspecified; D50.9 Iron deficiency anemia, unspecified; R60.1 Generalized edema; R60.0 Localized edema; F32.9 Major depressive disorder, single episode, unspecified; K21.0 Gastro-esophageal reflux disease with esophagitis; K44.9 Diaphragmatic hernia without obstruction or gangrene; K29.70 Gastritis, unspecified, without bleeding; K59.09 Other constipation; D12.3 Benign neoplasm of transverse colon; R19.7 Diarrhea, unspecified; R14.0 Abdominal distension (gaseous); E87.6 Hypokalemia; Z79.01 Long term (current) use of anticoagulants; Z86.718 Personal history of other venous thrombosis and embolism; Z86.711 Personal history of pulmonary embolism; I25.2 Old myocardial infarction; Z79.84 Long term (current) use of oral hypoglycemic drugs
CPT/HCPCS: 36600; 71045; 74019; 74177; 76937; 80048; 80053; 81001; 82010; 82550; 82805; 82947; 82948; 83735; 84100; 84484; 85007; 85025; 85027; 85610; 85730; 87015; 87040; 87116; 87206; 87493; 87641; 87804; 88305; 88312; 93005; 93306; 93970; 94002; 94003; 94618; 94640; 94664; 96365; 96375; J0360; J0456; J1815; J1817; J1940; J2060; J2920; J2930; J3475; J7030; J7050; J7512; J7613